=== PATIENT | male | born 1985 | race African-American/Black ===

== ENCOUNTER → 2016-11-11 | Outpatient (CLI) | payer BC ==
[2016-11-11 12:22] LABS: CHLORIDE,CL 106 mmol/L (98-110); SODIUM,NA 139 mmol/L (136-146)
== END ==
LOC: MW.CHIM 11:35
PROVIDERS: ATTEND Internal Medicine
DX: E10.9 Type 1 diabetes mellitus without complications (principal); I10 Essential (primary) hypertension; E87.5 Hyperkalemia
CPT/HCPCS: 36415; 80053; 80061; 83036; 84100; 84439; 84443; 85025

== ENCOUNTER 2016-12-14 12:27 | Emergency (ER) | payer BC ==
[2016-12-14] MEDS ORDERED: Ondansetron 4 MG Tab.DIS PO ONE (12:47)
[2016-12-14] MEDS ORDERED: Sodium Chloride 0.9% 1,000 ML IV ONE ×2 (12:47→13:50)
[2016-12-14] MEDS ORDERED: Ondansetron 4 MG/2 ML SDV IVPUSH ONE (12:54)
[2016-12-14] MEDS ORDERED: Insulin Regular, Human 100 Units/ML 10 ML Vial IVPUSH ONE (14:05)
--- NOTE | 2016-12-14 15:43 | EDM.PDOC ---
ED HPI GI/ABDOMINAL - General Chief Complaint: Gastrointestinal Problem Stated Complaint: VOMITING, AND COUGHING Time Seen by Provider: 12/14/16 12:39 Source of Information: Reports: Patient History Limitations: Reports: No limitations - History of Present Illness INITIAL COMMENTS - FREE TEXT/NARRATIVE: HISTORY AND PHYSICAL: History of present illness: 31 year-old male with a history of type 1 diabetes with variable compliance with insulin and medication regimen,] prior episodes of DKA, chronic renal insufficiency, now complaining of nausea vomiting and diarrhea today. Patient feels dehydrated and fatigued and states his glucose is elevated. No chest pain or shortness of air. No headache or stiff neck. No visual or speech changes. No weakness or difficulties with coordination. Denies fevers chills sweats or shaking chills. Review of systems: As per history of present illness and below otherwise all systems reviewed and negative. Past medical history: As per history of present illness and as reviewed below otherwise noncontributory. Surgical history: As per history of present illness and as reviewed below otherwise noncontributory. Social history: No reported history of drug or alcohol abuse. Family history: As per history of present illness and as reviewed below otherwise noncontributory. Physical exam: HEENT: Atraumatic, normocephalic, pupils reactive, negative for conjunctival pallor or scleral icterus, mucous membranes mildly dry, throat clear, neck supple, nontender, trachea midline. Lungs: Clear to auscultation, breath sounds equal bilaterally, chest nontender. Heart: S1S2, regular, negative for clicks, rubs, or JVD. Tachycardia Abdomen: Soft, nondistended, nontender. Negative for masses or hepatosplenomegaly. Negative for costovertebral tenderness. Pelvis: Stable nontender. Genitourinary: Deferred. Rectal: Deferred. Extremities: Atraumatic, negative for cords or calf pain. Neurovascular unremarkable. Neuro: Awake, alert, oriented. Cranial nerves II through XII unremarkable. Cerebellum unremarkable. Motor and sensory unremarkable throughout. Exam nonfocal. Diagnostics: [] Therapeutics: [] Impression: [] Plan: [Signs and symptoms consistent with viral gastroenteritis with mild dehydration. Hydration initiated with antibiotic treatment. Patient has a benign abdomen. I-STAT was unremarkable CO2. Urine with no ketones. Creatinine 1.7 today patient has a known history of chronic renal insufficiency last recorded value was 1.4 on July 11. Tachycardia resolved with hydration. Patient's nausea also resolved and he feels improved on reevaluation prior to discharge. No further workup or treatment indicated as patient is no evidence of DKA and is stable. Aware to followup with PCP regarding elevated blood pressure and he understands critical importance of appropriate treatment if he does indeed have essential hypertension. Patient will followup with PCP tomorrow or family practice clinic if he does not have a doctor. Patient agrees with outpatient followup and strict return precautions given] Definitive disposition and diagnosis as appropriate pending reevaluation and review of above. - Related Data Allergies/ADRs: Allergies Allergy/AdvReac Type Severity Reaction Status Date / Time Penicillins Allergy Unknown Anaphylactic Verified 08/19/16 08:37 Shock iodine Allergy Anaphylactic Verified 08/19/16 08:37 Shock gluten Allergy Muscle Uncoded 08/19/16 08:37 Aches Home Meds: Home Meds Insulin Glarg,Human.Rec.Analog [Lantus] 40 unit SUBCUT BEDTIME 04/03/14 [History ] Insulin Lispro [Humalog Kwikpen U-100] 0 unit SUBCNJ ASDIRECTED PRN 04/03/14 [ History] Omeprazole [Prilosec] 40 mg PO DAILY #30 capsule. 09/27/14 [Rx] Lisinopril/Hydrochlorothiazide [Lisinopril-Hctz 10-12.5 mg Tab] 1 tab PO DAILY 12/14/16 [History] Ondansetron [Zofran ODT] 4 mg SL Q4H PRN #30 tab.dis 12/14/16 [Rx] Past Medical History - Past Health History Medical/Surgical History: Denies Medical/Surgical History HEENT History: Reports: None Cardiovascular History: Reports: Hypertension Respiratory History: Reports: None Genitourinary History: Reports: Chronic renal insuffiency Musculoskeletal History: Reports: None Neurological History: Reports: None Psychiatric History: Reports: Anxiety Endocrine/Metabolic History: Reports: Diabetes, type I Hematologic History: Reports: None Immunologic History: Reports: None Oncologic (Cancer) History: Reports: None Dermatologic History: Reports: None - Infectious Disease History Infectious Disease History: Reports: None - Past Surgical History Head Surgeries/Procedures: Reports: None HEENT Surgical History: Reports: None Respiratory Surgical History: Reports: None Dermatological Surgical History: Reports: None Social & Family History - Family History Family Medical History: Noncontributory Cardiac: Reports: High cholesterol, Hypertension OBGYN: Reports: Neurological: Reports: None - Tobacco Use Smoking Status *Q: Current Every Day Smoker Years of Tobacco use: 5 Packs/Tins Daily: 0.5 Second Hand Smoke Exposure: No - Caffeine Use Caffeine Use: Reports: Coffee - Alcohol Use Days Per Week of Alcohol Use: 0 Number of Drinks Per Day: 0 Total Drinks Per Week: 0 - Recreational Drug Use Recreational Drug Use: No Drug Use in Last 12 Months: No ED ROS GENERAL - Review of Systems Review Of Systems: See Below (Per history of present illness) ED EXAM, GI/ABD - Physical Exam Exam: See Below (Per history of present illness) Course - Vital Signs Last Recorded V/S: Last Vital Signs Temp 36.6 C 12/14/16 16:06 Pulse 99 12/14/16 16:06 Resp 16 12/14/16 16:06 BP 160/100 H 12/14/16 16:06 Pulse Ox 98 12/14/16 16:06 - Orders/Labs/Meds Labs: Laboratory Tests 12/14/16 12/14/16 12/14/16 Range/Units 12:44 12:44 12:50 Sodium 137 (136-146) mmol/L Potassium 4.5 (3.5-5.1) mmol/L Chloride 100 (98-110) mmol/L Carbon Dioxide 25 (21-31) mmol/L BUN 37 H (6.0-23.0) mg/dL Creatinine 1.7 H (0.6-1.5) mg/dL Est Cr Clr Drug Dosing 61.47 mL/min Estimated GFR (MDRD) 57.6 ml/min Glucose 316 H (60-110) mg/dL Calcium 10.2 (8.8-10.8) mg/dL Urine Color YELLOW Urine Appearance CLEAR Urine pH 6.5 (5.0-8.0) Ur Specific [place] 1.020 (1.001-1.035) Urine Protein >=300 (NEGATIVE) mg/dL Urine Glucose (UA) >=1000 (NEGATIVE) mg/dL Urine Ketones NEGATIVE NEGATIVE (NEGATIVE) mg/dL Urine Occult Blood MODERATE (NEGATIVE) Urine Nitrite NEGATIVE (NEGATIVE) Urine Bilirubin NEGATIVE (NEGATIVE) Urine Urobilinogen 0.2 (<2.0) EU/dL Ur Leukocyte Esterase NEGATIVE (NEGATIVE) Urine RBC 1-3 (0-2/HPF) Urine WBC 1-2 (0-5/HPF) Ur Epithelial Cells FEW (NONE-FEW) Urine Bacteria FEW (NEGATIVE) Meds: Medications Discontinued Medications Generic Name Dose Route Start Last Admin Trade Name Freq PRN Reason Stop Dose Admin Sodium Chloride 1,000 mls @ 999 mls/hr 12/14/16 12:47 12/14/16 12:57 Normal Saline IV 12/14/16 13:47 999 mls/hr STAT ONE Administration Sodium Chloride 1,000 mls @ 999 mls/hr 12/14/16 13:50 12/14/16 14:00 Normal Saline IV 12/14/16 14:50 999 mls/hr STAT ONE Administration Insulin Human Regular 6 unit 12/14/16 14:05 12/14/16 14:10 Novolin R IVPUSH 12/14/16 14:06 6 units ONETIME ONE Administration Protocol Ondansetron HCl 4 mg 12/14/16 12:54 12/14/16 12:58 Zofran IVPUSH 12/14/16 12:55 4 mg ONETIME ONE Administration Departure - Departure Time of Disposition: 15:38 Disposition: Home, Self-Care 01 Condition: good Clinical Impression: Viral gastroenteritis, Mild dehydration, Hyperglycemia, Uncontrolled diabetes mellitus Prescriptions: Ondansetron [Zofran ODT] 4 mg SL Q4H PRN #30 tab.dis PRN Reason: Nausea Instructions: Dehydration, Adult, [id number], Viral Gastroenteritis, Adult, [id number] Referrals: PCP,None [Primary Care Provider] - Forms: ED Department Discharge Additional Instructions: You have viral gastroenteritis today. This is a viral syndrome that causes vomiting and diarrhea. Rest and drink plenty of fluids. On it her your blood glucose frequently and use your insulin as prescribed. Use Zofran one pill under your tongue every 4 hours as needed for nausea and vomiting. Follow up with your DrGuilherme tomorrow and return immediately for new severe or worsening symptoms or inability to keep fluids down. Your blood pressure is not well- controlled today. Have your blood pressure rechecked by your primary care DrGuilherme tomorrow morning for reevaluation and for any needed dose changes of your blood pressure medicines or additional medicines as needed.
[2016-12-14 16:08] VITALS: BP 160/100
== END 2016-12-14 16:08 | disposition home or self-care (01) ==
LOC: MW.ED 12:27
DX: A08.4 Viral intestinal infection, unspecified (principal); E10.65 Type 1 diabetes mellitus with hyperglycemia; E86.0 Dehydration; I12.9 Hypertensive chronic kidney disease with stage 1 through stage 4 chronic kidney disease, or unspecified chronic kidney disease; N18.9 Chronic kidney disease, unspecified; F41.9 Anxiety disorder, unspecified; F17.210 Nicotine dependence, cigarettes, uncomplicated; Z79.899 Other long term (current) drug therapy; Z88.0 Allergy status to penicillin; Z88.8 Allergy status to other drugs, medicaments and biological substances
CPT/HCPCS: 36415; 80048; 81001; 81003; 82962; 96361; 96374; 96375; 99284; J2405; J7040; J1815-GY

== ENCOUNTER 2016-12-14 20:46 | Inpatient (IN) | payer BC ==
[2016-12-14] MEDS ORDERED: Ondansetron 4 MG/2 ML SDV IVPUSH ONE (20:49)
--- NOTE | 2016-12-14 20:58 | EDM.PDOC ---
ED HPI GENERAL MEDICAL PROBLEM - General Chief Complaint: Gastrointestinal Problem Stated Complaint: VOMITING Time Seen by Provider: 12/14/16 20:52 - History of Present Illness INITIAL COMMENTS - FREE TEXT/NARRATIVE: HISTORY AND PHYSICAL: History of present illness: Patient 31-year-old black male history of diabetes and medical noncompliance who was seen earlier for dehydration and gastritis treated and discharged he returns now with vomiting coffee ground material generalized weakness he denies chest pain shortness of breath denies abdominal pain. Review of systems: As per history of present illness and below otherwise all systems reviewed and negative. Past medical history: As per history of present illness and as reviewed below otherwise noncontributory. Surgical history: As per history of present illness and as reviewed below otherwise noncontributory. Social history: No reported history of drug or alcohol abuse. Family history: As per history of present illness and as reviewed below otherwise noncontributory. Physical exam: HEENT: Atraumatic, normocephalic, pupils reactive, negative for conjunctival pallor or scleral icterus, mucous membranes dry, throat clear, neck supple, nontender, trachea midline. Lungs: Clear to auscultation, breath sounds equal bilaterally, chest nontender. Heart: S1S2, regular, negative for clicks, rubs, or JVD. Abdomen: Soft, nondistended, nontender. Negative for masses or hepatosplenomegaly. Negative for costovertebral tenderness. Pelvis: Stable nontender. Genitourinary: Deferred. Rectal: Deferred. Extremities: Atraumatic, negative for cords or calf pain. Neurovascular unremarkable. Neuro: Awake, alert, oriented. Follows commands moves all extremities limited procedure nonfocal exam Diagnostics: CBC CMP PT/INR type and screen lipase ABG chest x-ray EKG Therapeutics: Normal saline 1 L bolus Zofran 4 mg IV NG tube Protonix 80 mg IV bolus followed by a milligram per hour drip Impression: #1 acute upper GI bleed #2 uncontrolled diabetes #3 medical noncompliance Definitive disposition and diagnosis as appropriate pending reevaluation and review of above. Abdominal Pain Score (Numeric/FACES): 3 - Related Data Allergies Allergy/AdvReac Type Severity Reaction Status Date / Time Penicillins Allergy Unknown Anaphylactic Verified 08/19/16 08:37 Shock iodine Allergy Anaphylactic Verified 08/19/16 08:37 Shock gluten Allergy Muscle Uncoded 08/19/16 08:37 Aches Home Meds: Home Meds Insulin Glarg,Human.Rec.Analog [Lantus] 40 unit SUBCUT BEDTIME 04/03/14 [History ] Insulin Lispro [Humalog Kwikpen U-100] 0 unit SUBCNJ ASDIRECTED PRN 04/03/14 [ History] Omeprazole [Prilosec] 40 mg PO DAILY #30 capsule. 09/27/14 [Rx] Lisinopril/Hydrochlorothiazide [Lisinopril-Hctz 10-12.5 mg Tab] 1 tab PO DAILY 12/14/16 [History] Ondansetron [Zofran ODT] 4 mg SL Q4H PRN #30 tab.dis 12/14/16 [Rx] Past Medical History - Past Health History Medical/Surgical History: Denies Medical/Surgical History HEENT History: Reports: None Cardiovascular History: Reports: Hypertension Respiratory History: Reports: None Genitourinary History: Reports: Chronic renal insuffiency Musculoskeletal History: Reports: None Neurological History: Reports: None Psychiatric History: Reports: Anxiety Endocrine/Metabolic History: Reports: Diabetes, type I Hematologic History: Reports: None Immunologic History: Reports: None Oncologic (Cancer) History: Reports: None Dermatologic History: Reports: None - Infectious Disease History Infectious Disease History: Reports: None - Past Surgical History Head Surgeries/Procedures: Reports: None HEENT Surgical History: Reports: None Respiratory Surgical History: Reports: None Dermatological Surgical History: Reports: None Social & Family History - Family History Family Medical History: Noncontributory Cardiac: Reports: High cholesterol, Hypertension OBGYN: Reports: Neurological: Reports: None - Tobacco Use Smoking Status *Q: Current Every Day Smoker Years of Tobacco use: 5 Packs/Tins Daily: 0.5 Second Hand Smoke Exposure: No - Caffeine Use Caffeine Use: Reports: Coffee - Alcohol Use Days Per Week of Alcohol Use: 0 Number of Drinks Per Day: 0 Total Drinks Per Week: 0 - Recreational Drug Use Recreational Drug Use: No Drug Use in Last 12 Months: No ED ROS GENERAL - Review of Systems Review Of Systems: ROS reveals no pertinent complaints other than HPI. ED EXAM, GENERAL - Physical Exam Exam: See Below (See dictation) Course - Vital Signs Last Recorded V/S: Last Vital Signs Temp 37.1 C 12/15/16 00:00 Pulse 106 H 12/15/16 02:00 Resp 13 12/15/16 02:00 BP 117/69 12/15/16 02:00 Pulse Ox 98 12/15/16 02:00 - Orders/Labs/Meds Orders: Active Orders 24 hr Category Date Time Status Patient Status [ADT] Stat ADT 12/14/16 21:14 Active Oxygen Therapy [RC] ASDIRECTED Care 12/14/16 21:16 Active Pulse Oximetry [RC] ASDIRECTED Care 12/14/16 21:16 Active CULTURE BLOOD [BC] Stat Lab 12/14/16 21:18 Received CULTURE BLOOD [BC] Stat Lab 12/14/16 21:45 Results Pantoprazole [ProTONIX IV] 80 mg Med 12/14/16 21:08 Active Sodium Chloride 0.9% [Normal Saline] 100 ml IV NOW Sodium Chloride 0.9% [Normal Saline] 1,000 ml Med 12/14/16 21:15 Active IV ASDIRECTED Blood Culture x2 Reflex Set [OM.PC] Stat Oth 12/14/16 21:02 Ordered Nasogastric Orogastric Tube Insertion [OM.PC] Stat Ot 12/14/16 21:16 Ordered Medication Orders Hydromorphone HCl (Dilaudid) 0.25 mg IVPUSH Q2H PRN PRN Reason: Pain (severe 7-10) Last Admin: 12/15/16 00:13 Dose: 0.25 mg Sodium Chloride (Normal Saline) 1,000 mls @ 75 mls/hr IV ASDIRECTED MICHAEL Last Admin: 12/14/16 23:34 Dose: 75 mls/hr Infusion: 12/14/16 22:51 Dose: 999 mls/hr Admin: 12/14/16 21:50 Dose: 999 mls/hr Pantoprazole Sodium 80 mg/ (Sodium Chloride) 100 mls @ 10 mls/hr IV NOW STA Stop: 12/15/16 07:07 Last Admin: 12/14/16 23:15 Dose: 10 mls/hr Pantoprazole Sodium 40 mg/ (Sodium Chloride) 10 mls @ 300 mls/hr IVPUSH DAILY MICHAEL Insulin Aspart (Novolog) 10 unit SUBCUT Q6H MICHAEL Last Admin: 12/15/16 00:53 Dose: 10 units Lorazepam (Ativan) 1 mg IM Q6H PRN PRN Reason: Agitation Last Admin: 12/15/16 00:05 Dose: 1 mg Nicotine (Habitrol) 7 mg TRDERM DAILY MICHAEL Last Admin: 12/14/16 23:49 Dose: 7 mg Promethazine HCl (Phenergan) 25 mg IM Q6H PRN PRN Reason: Nausea Last Admin: 12/14/16 23:48 Dose: 25 mg Labs: Laboratory Tests 12/14/16 12/14/16 12/14/16 Range/Units 21:02 21:05 21:18 WBC 9.34 (4.0-11.0) K/uL RBC 5.91 H (4.50-5.90) M/uL Hgb 12.9 L (13.0-17.0) g/dL Hct 39.3 (38.0-50.0) % MCV 66.5 L (80.0-98.0) fL MCH 21.8 L (27.0-32.0) pg MCHC 32.8 (31.0-37.0) g/dL RDW Std Deviation 36.5 (28.0-62.0) fl RDW Coeff of Dania 15 (11.0-15.0) % Plt Count 251 (150-400) K/uL MPV 10.80 (7.40-12.00) fL Neut % (Auto) 80.6 H (48.0-80.0) % Lymph % (Auto) 16.2 (16.0-40.0) % [place] % (Auto) 2.9 (0.0-15.0) % Eos % (Auto) 0.1 (0.0-7.0) % Baso % (Auto) 0.2 (0.0-1.5) % Neut # (Auto) 7.5 H (1.4-5.7) K/uL Lymph # (Auto) 1.5 (0.6-2.4) K/uL [place] # (Auto) 0.3 (0.0-0.8) K/uL Eos # (Auto) 0.0 (0.0-0.7) K/uL Baso # (Auto) 0.0 (0.0-0.1) K/uL Nucleated RBC % 0.0 /100WBC Nucleated RBCs # 0 K/uL INR (0.86-1.11) ABG pH 7.424 (7.35-7.45) ABG pCO2 41 (35-45) mmHG ABG pO2 71 L (75-100) mmHG ABG HCO3 27 H (22-26) mEq/L ABG Total CO2 24.3 ABG Base Excess 2.3 H (-2.0-2.0) Lactate (0.20-2.00) mmol/L Sodium (136-146) mmol/L Potassium (3.5-5.1) mmol/L Chloride (98-110) mmol/L Carbon Dioxide (21-31) mmol/L BUN (6.0-23.0) mg/dL Creatinine (0.6-1.5) mg/dL Est Cr Clr Drug Dosing mL/min Estimated GFR (MDRD) ml/min Glucose (60-110) mg/dL POC Glucose 366 H (60-110) mg/dL Calcium (8.8-10.8) mg/dL Total Bilirubin (0.1-1.5) mg/dL AST (5-40) IU/L ALT (8-54) IU/L Alkaline Phosphatase (40-150) Troponin I (0.0-0.29) NG/ML Total Protein (6.0-8.0) g/dL Albumin (3.5-5.0) g/dL Globulin (2.0-3.5) g/dL Albumin/Globulin Ratio (1.3-2.8) Amylase (10-90) U/L Lipase (7-80) U/L Ethyl Alcohol mg/dL 12/14/16 12/14/16 12/14/16 Range/Units 21:18 21:18 21:18 WBC (4.0-11.0) K/uL RBC (4.50-5.90) M/uL Hgb (13.0-17.0) g/dL Hct (38.0-50.0) % MCV (80.0-98.0) fL MCH (27.0-32.0) pg MCHC (31.0-37.0) g/dL RDW Std Deviation (28.0-62.0) fl RDW Coeff of Dania (11.0-15.0) % Plt Count (150-400) K/uL MPV (7.40-12.00) fL Neut % (Auto) (48.0-80.0) % Lymph % (Auto) (16.0-40.0) % [place] % (Auto) (0.0-15.0) % Eos % (Auto) (0.0-7.0) % Baso % (Auto) (0.0-1.5) % Neut # (Auto) (1.4-5.7) K/uL Lymph # (Auto) (0.6-2.4) K/uL [place] # (Auto) (0.0-0.8) K/uL Eos # (Auto) (0.0-0.7) K/uL Baso # (Auto) (0.0-0.1) K/uL Nucleated RBC % /100WBC Nucleated RBCs # K/uL INR 0.92 (0.86-1.11) ABG pH (7.35-7.45) ABG pCO2 (35-45) mmHG ABG pO2 (75-100) mmHG ABG HCO3 (22-26) mEq/L ABG Total CO2 ABG Base Excess (-2.0-2.0) Lactate 3.8 H (0.20-2.00) mmol/L Sodium 141 (136-146) mmol/L Potassium 4.3 (3.5-5.1) mmol/L Chloride 101 (98-110) mmol/L Carbon Dioxide 24 (21-31) mmol/L BUN 27 H (6.0-23.0) mg/dL Creatinine 1.5 (0.6-1.5) mg/dL Est Cr Clr Drug Dosing 69.92 mL/min Estimated GFR (MDRD) > 60.0 ml/min Glucose 415 H (60-110) mg/dL POC Glucose (60-110) mg/dL Calcium 10.0 (8.8-10.8) mg/dL Total Bilirubin 0.4 (0.1-1.5) mg/dL AST 57 H (5-40) IU/L ALT 67 H (8-54) IU/L Alkaline Phosphatase 104 (40-150) Troponin I (0.0-0.29) NG/ML Total Protein 6.8 (6.0-8.0) g/dL Albumin 3.7 (3.5-5.0) g/dL Globulin 3.1 (2.0-3.5) g/dL Albumin/Globulin Ratio 1.2 L (1.3-2.8) Amylase 90 (10-90) U/L Lipase < 8 (7-80) U/L Ethyl Alcohol < 10.0 mg/dL 12/14/16 Range/Units 21:18 WBC (4.0-11.0) K/uL RBC (4.50-5.90) M/uL Hgb (13.0-17.0) g/dL Hct (38.0-50.0) % MCV (80.0-98.0) fL MCH (27.0-32.0) pg MCHC (31.0-37.0) g/dL RDW Std Deviation (28.0-62.0) fl RDW Coeff of Dania (11.0-15.0) % Plt Count (150-400) K/uL MPV (7.40-12.00) fL Neut % (Auto) (48.0-80.0) % Lymph % (Auto) (16.0-40.0) % [place] % (Auto) (0.0-15.0) % Eos % (Auto) (0.0-7.0) % Baso % (Auto) (0.0-1.5) % Neut # (Auto) (1.4-5.7) K/uL Lymph # (Auto) (0.6-2.4) K/uL [place] # (Auto) (0.0-0.8) K/uL Eos # (Auto) (0.0-0.7) K/uL Baso # (Auto) (0.0-0.1) K/uL Nucleated RBC % /100WBC Nucleated RBCs # K/uL INR (0.86-1.11) ABG pH (7.35-7.45) ABG pCO2 (35-45) mmHG ABG pO2 (75-100) mmHG ABG HCO3 (22-26) mEq/L ABG Total CO2 ABG Base Excess (-2.0-2.0) Lactate (0.20-2.00) mmol/L Sodium (136-146) mmol/L Potassium (3.5-5.1) mmol/L Chloride (98-110) mmol/L Carbon Dioxide (21-31) mmol/L BUN (6.0-23.0) mg/dL Creatinine (0.6-1.5) mg/dL Est Cr Clr Drug Dosing mL/min Estimated GFR (MDRD) ml/min Glucose (60-110) mg/dL POC Glucose (60-110) mg/dL Calcium (8.8-10.8) mg/dL Total Bilirubin (0.1-1.5) mg/dL AST (5-40) IU/L ALT (8-54) IU/L Alkaline Phosphatase (40-150) Troponin I < 0.10 (0.0-0.29) NG/ML Total Protein (6.0-8.0) g/dL Albumin (3.5-5.0) g/dL Globulin (2.0-3.5) g/dL Albumin/Globulin Ratio (1.3-2.8) Amylase (10-90) U/L Lipase (7-80) U/L Ethyl Alcohol mg/dL Meds: Medications Generic Name Dose Route Start Last Admin Trade Name Freq PRN Reason Stop Dose Admin Hydromorphone HCl 0.25 mg 12/14/16 22:40 12/15/16 00:13 Dilaudid IVPUSH 0.25 mg Q2H PRN Administration Pain (severe 7-10) Sodium Chloride 1,000 mls @ 75 mls/hr 12/14/16 21:15 12/14/16 23:34 Normal Saline IV 75 mls/hr ASDIRECTED MICHAEL Administration Pantoprazole Sodium 80 mg/ 100 mls @ 10 mls/hr 12/14/16 21:08 12/14/16 23:15 Sodium Chloride IV 12/15/16 07:07 10 mls/hr NOW STA Administration Pantoprazole Sodium 40 mg/ 10 mls @ 300 mls/hr 12/15/16 09:00 Sodium Chloride IVPUSH DAILY MICHAEL Insulin Aspart 10 unit 12/15/16 00:45 12/15/16 00:53 Novolog SUBCUT 10 units Q6H MICHAEL Administration Lorazepam 1 mg 12/14/16 22:25 12/15/16 00:05 Ativan IM 1 mg Q6H PRN Administration Agitation Nicotine 7 mg 12/14/16 22:30 12/14/16 23:49 Habitrol TRDERM 7 mg DAILY MICHAEL Administration Promethazine HCl 25 mg 12/14/16 22:25 12/14/16 23:48 Phenergan IM 25 mg Q6H PRN Administration Nausea Discontinued Medications Generic Name Dose Route Start Last Admin Trade Name Freq PRN Reason Stop Dose Admin Hydromorphone HCl 0.25 mg 12/14/16 22:25 Dilaudid IVPUSH Q2H PRN Pain (severe 7-10) Pantoprazole Sodium 40 mg/ 10 mls @ 300 mls/hr 12/14/16 21:06 12/14/16 21:53 Sodium Chloride IVPUSH 12/14/16 21:07 300 mls/hr NOW ONE Administration Metoclopramide HCl 10 mg 12/14/16 21:06 12/14/16 22:17 Reglan IVPUSH 12/14/16 21:07 Not Given ONETIME ONE Ondansetron HCl 8 mg 12/14/16 20:49 12/14/16 20:53 Zofran IVPUSH 12/14/16 20:50 8 mg ONETIME ONE Administration Departure - Departure Time of Disposition: 21:00 Disposition: Admitted As Inpatient 67 Condition: good Clinical Impression: Gastrointestinal hemorrhage, Diabetes - My Orders Last 24 Hours: My Active Orders 12/14/16 21:02 Blood Culture x2 Reflex Set [OM.PC] Stat 12/14/16 21:08 Pantoprazole [ProTONIX IV] 80 mg Sodium Chloride 0.9% [Normal Saline] 100 ml IV NOW 12/14/16 21:14 Patient Status [ADT] Stat 12/14/16 21:15 Sodium Chloride 0.9% [Normal Saline] 1,000 ml IV ASDIRECTED 12/14/16 21:16 Oxygen Therapy [RC] ASDIRECTED Pulse Oximetry [RC] ASDIRECTED Nasogastric Orogastric Tube Insertion [OM.PC] Stat 12/14/16 21:18 CULTURE BLOOD [BC] Stat 12/14/16 21:45 CULTURE BLOOD [BC] Stat - Assessment/Plan Last 24 Hours: My Active Orders 12/14/16 21:02 Blood Culture x2 Reflex Set [OM.PC] Stat 12/14/16 21:08 Pantoprazole [ProTONIX IV] 80 mg Sodium Chloride 0.9% [Normal Saline] 100 ml IV NOW 12/14/16 21:14 Patient Status [ADT] Stat 12/14/16 21:15 Sodium Chloride 0.9% [Normal Saline] 1,000 ml IV ASDIRECTED 12/14/16 21:16 Oxygen Therapy [RC] ASDIRECTED Pulse Oximetry [RC] ASDIRECTED Nasogastric Orogastric Tube Insertion [OM.PC] Stat 12/14/16 21:18 CULTURE BLOOD [BC] Stat 12/14/16 21:45 CULTURE BLOOD [BC] Stat
[2016-12-14] MEDS ORDERED: Pantoprazole 40 MG in Sodium Chloride 0.9% 10 ML IVPUSH ONE (21:06)
[2016-12-14] MEDS ORDERED: Metoclopramide 10 MG/2 ML SDV IVPUSH ONE (21:06)
[2016-12-14] MEDS ORDERED: Pantoprazole 80 MG in Sodium Chloride 0.9% 100 ML IV STA (21:08)
[2016-12-14] MEDS: Sodium Chloride 0.9% 1,000 ML IV SCH ×2 (21:50→23:34)
[2016-12-14 21:57] LABS: CHLORIDE,CL 101 mmol/L (98-110); SODIUM,NA 141 mmol/L (136-146)
[2016-12-14] MEDS ORDERED: HYDROmorphone 2 MG/ML Syringe IVPUSH PRN (22:25)
[2016-12-14] MEDS ORDERED: LORazepam 2 MG/ML MDV IM PRN (22:25)
[2016-12-14] MEDS ORDERED: HYDROmorphone 1 MG/ML Syringe IVPUSH PRN (22:40)
--- NOTE | 2016-12-14 23:36 | PCM.HP ---
H&P History of Present Illness - General Date of Service: 12/14/16 Admit Problem/Dx: hematemesis Source of Information: Patient History Limitations: Reports: No limitations - History of Present Illness Initial Comments - Free Text/Narative: 31 y o diabetic since age 9 with severe nausea and dark emesis since yesterday, Says hurting all over Symptom Onset Date: 12/13/16 Duration of Symptoms: Reports: Day(s): Location: Reports: abdomen, generalized Severity: severe Improves with: Reports: None Worsens with: Reports: None Abdominal Pain Score (Numeric/FACES): 3 - Related Data Allergies/Adverse Reactions: Allergies Allergy/AdvReac Type Severity Reaction Status Date / Time Penicillins Allergy Unknown Anaphylactic Verified 08/19/16 08:37 Shock iodine Allergy Anaphylactic Verified 08/19/16 08:37 Shock gluten Allergy Muscle Uncoded 08/19/16 08:37 Aches Home Medications: Home Meds Insulin Glarg,Human.Rec.Analog [Lantus] 40 unit SUBCUT BEDTIME 04/03/14 [History ] Insulin Lispro [Humalog Kwikpen U-100] 0 unit SUBCNJ ASDIRECTED PRN 04/03/14 [ History] Omeprazole [Prilosec] 40 mg PO DAILY #30 capsule. 09/27/14 [Rx] Lisinopril/Hydrochlorothiazide [Lisinopril-Hctz 10-12.5 mg Tab] 1 tab PO DAILY 12/14/16 [History] Ondansetron [Zofran ODT] 4 mg SL Q4H PRN #30 tab.dis 12/14/16 [Rx] Past Medical History - Past Health History Medical/Surgical History: Denies Medical/Surgical History HEENT History: Reports: None Cardiovascular History: Reports: Hypertension Respiratory History: Reports: None Gastrointestinal History: Reports: Other (see below) Other Gastrointestinal History: ulcers Genitourinary History: Reports: Chronic renal insuffiency Musculoskeletal History: Reports: None Neurological History: Reports: None Psychiatric History: Reports: Anxiety Endocrine/Metabolic History: Reports: Diabetes, type I, Other (see below) ( reports having DKA in past) Hematologic History: Reports: None Immunologic History: Reports: None Oncologic (Cancer) History: Reports: None Dermatologic History: Reports: None - Infectious Disease History Infectious Disease History: Reports: None - Past Surgical History Head Surgeries/Procedures: Reports: None HEENT Surgical History: Reports: None Respiratory Surgical History: Reports: None Dermatological Surgical History: Reports: None Social & Family History - Family History Family Medical History: Noncontributory Cardiac: Reports: High cholesterol, Hypertension OBGYN: Reports: Neurological: Reports: None - Tobacco Use Smoking Status *Q: Current Every Day Smoker Years of Tobacco use: 5 Packs/Tins Daily: 0.5 Second Hand Smoke Exposure: No - Caffeine Use Caffeine Use: Reports: Coffee - Alcohol Use Days Per Week of Alcohol Use: 0 Number of Drinks Per Day: 0 Total Drinks Per Week: 0 - Recreational Drug Use Recreational Drug Use: No Drug Use in Last 12 Months: No H&P Review of Systems - Review of Systems: Review Of Systems: See Below General: Reports: no symptoms HEENT: Reports: no symptoms Pulmonary: Reports: No Symptoms Cardiovascular: Reports: no symptoms Gastrointestinal: Reports: Abdominal pain, Diarrhea, Nausea Genitourinary: Reports: no symptoms Musculoskeletal: Reports: no symptoms Skin: Reports: no symptoms Psychiatric: Reports: no symptoms Neurological: Reports: No Symptoms Hematologic/Lymphatic: Reports: no symptoms Immunologic: Reports: no symptoms Exam - Exam Exam: See Below - Vital Signs Vital Signs: Last Vital Signs Temp 37.2 C 12/14/16 22:30 Pulse 98 12/14/16 22:30 Resp 20 12/14/16 22:30 BP 186/111 H 12/14/16 22:30 Pulse Ox 98 12/14/16 22:30 Weight: 77.11 kg - Exam General: severe distress HEENT: Conjunctiva clear Neck: supple Lungs: Clear to auscultation Cardiovascular: regular rate Abdomen: guarding (difficult to examine due to writhing) (Male) Exam: Deferred Rectal (Males) Exam: Deferred Back Exam: normal inspection Extremities: normal inspection Skin: other (many small healed excoriations) Neurological: cranial nerves intact Neuro Extensive - Mental Status: alert Neuro Extensive - Motor, Sensory, Reflexes: CN II-XII intact Psychiatric: anxious, agitated - Patient Data Lab Results last 24 hrs: Laboratory Results - last 24 hr 12/14/16 12/14/16 12/14/16 Range/Units 21:50 22:30 22:30 Urine Color YELLOW Urine Appearance CLEAR Urine pH 7.0 (5.0-8.0) Ur Specific Mears 1.015 (1.001-1.035) Urine Protein 100 (NEGATIVE) mg/dL Urine Glucose (UA) >=1000 (NEGATIVE) mg/dL Urine Ketones 15 H (NEGATIVE) mg/dL Urine Occult Blood MODERATE (NEGATIVE) Urine Nitrite NEGATIVE (NEGATIVE) Urine Bilirubin NEGATIVE (NEGATIVE) Urine Urobilinogen 0.2 (<2.0) EU/dL Ur Leukocyte Esterase NEGATIVE (NEGATIVE) Urine RBC 1-2 (0-2/HPF) Urine WBC 0-1 (0-5/HPF) Ur Epithelial Cells NOT SEEN (NONE-FEW) Urine Bacteria RARE (NEGATIVE) Urine Opiates Screen NEGATIVE (NEGATIVE) Ur Oxycodone Screen NEGATIVE (NEGATIVE) Urine Methadone Screen NEGATIVE (NEGATIVE) Ur Barbiturates Screen NEGATIVE (NEGATIVE) Ur Phencyclidine Scrn NEGATIVE (NEGATIVE) Ur Amphetamine Screen NEGATIVE (NEGATIVE) U Methamphetamines Scrn NEGATIVE (NEGATIVE) U Benzodiazepines Scrn NEGATIVE (NEGATIVE) U Cocaine Metab Screen NEGATIVE (NEGATIVE) U Marijuana (THC) Screen POSITIVE (NEGATIVE) Blood Type O POSITIVE Antibody Screen NEGATIVE Result Diagrams: 12/14/16 21:18 12/14/16 21:18 Peter Results last 24 hrs: Microbiology 12/14/16 21:45 Anaerobic Blood Culture - Final Blood - Arm, Left *Q Meaningful Use (ADM) - VTE *Q VTE Criteria *Q: - Stroke *Q Stroke Criteria *Q: - AMI *Q AMI Criteria *Q: Problem List Initiated/Reviewed/Updated: Yes Orders Last 24hrs: Active Orders 24 hr Category Date Time Status Oxygen Therapy [RC] PRN Care 12/14/16 22:27 Active VTE/DVT Education [RC] PER UNIT ROUTINE Care 12/14/16 22:27 Active Vital Signs [RC] Q4H Care 12/14/16 22:27 Active Clear Liquid Diet [DIET] Diet 12/14/16 Breakfast Active CXR [Chest 1V Frontal] [CR] Stat Exams 12/14/16 21:51 Taken HEMOGLOBIN/HEMATOCRIT,HH [HEME] DAILY Lab 12/15/16 05:00 Ordered HYDROmorphone [Dilaudid] Med 12/14/16 22:40 Active 0.25 mg IVPUSH Q2H PRN LORazepam [Ativan] Med 12/14/16 22:25 Active 1 mg IM Q6H PRN Nicotine [Habitrol] Med 12/14/16 22:30 Active 7 mg TRDERM DAILY Promethazine [Phenergan] Med 12/14/16 22:25 Active 25 mg IM Q6H PRN Resuscitation Status Routine Resus Stat 12/14/16 22:25 Ordered Medication Orders Hydromorphone HCl (Dilaudid) 0.25 mg IVPUSH Q2H PRN PRN Reason: Pain (severe 7-10) Sodium Chloride (Normal Saline) 1,000 mls @ 75 mls/hr IV ASDIRECTED [facility] Last Admin: 12/14/16 21:50 Dose: 999 mls/hr Pantoprazole Sodium 80 mg/ (Sodium Chloride) 100 mls @ 10 mls/hr IV NOW STA Stop: 12/15/16 07:07 Last Admin: 12/14/16 23:15 Dose: 10 mls/hr Lorazepam (Ativan) 1 mg IM Q6H PRN PRN Reason: Agitation Nicotine (Habitrol) 7 mg TRDERM DAILY [facility] Promethazine HCl (Phenergan) 25 mg IM Q6H PRN PRN Reason: Nausea hematemesis with "coffee grounds" diabetes hypertension ?situational plan; protonix drip monitor blood sugars and manage with q 6 novolog
[2016-12-14] MEDS: Promethazine 25 MG/ML SDV IM PRN (23:48)
[2016-12-14] MEDS: Nicotine 7 MG/24 Hr Patch TRDERM SCH (23:49)
[2016-12-15] MEDS: Insulin Aspart 100 Units/ML 3 ML Pen SUBCUT SCH ×5 (00:53→21:55)
[2016-12-15] MEDS: Promethazine 25 MG/ML SDV IM PRN ×2 (07:46→15:53)
[2016-12-15] MEDS ORDERED: Sodium Chloride 0.9% 1,000 ML IV ONE (07:58)
[2016-12-15] MEDS ORDERED: Pantoprazole 40 MG in Sodium Chloride 0.9% 10 ML IVPUSH SCH (09:00)
[2016-12-15] MEDS ORDERED: Insulin Aspart 100 Units/ML 3 ML Pen SUBCUT SCH ×2 (09:00→09:15)
[2016-12-15] MEDS: Sodium Chloride 0.9% 1,000 ML IV SCH ×3 (09:10→23:04)
[2016-12-15] MEDS: Nicotine 7 MG/24 Hr Patch TRDERM SCH (10:22)
[2016-12-15] MEDS: Ondansetron 4 MG/2 ML SDV IVPUSH PRN ×2 (11:34→18:03)
[2016-12-15 12:47] LABS: CHLORIDE,CL 109 mmol/L (98-110); SODIUM,NA 145 mmol/L (136-146)
--- NOTE | 2016-12-15 13:15 | PCM.PN ---
<AnneChavez chavira - Last Filed: 12/15/16 13:18> - General Info Date of Service: 12/15/16 Admission Dx/Problem (Free Text): hematemesis Subjective Update: Still having nausea this morning, no appetite. Feeling better than last evening. No BM's, NG draining clear. No pain. Functional Status: Reports: pain controlled - Review of Systems General: Reports: Fatigue, Malaise. Denies: Fever, Weakness HEENT: Denies: headaches, sinus congestion Pulmonary: Denies: shortness of breath, pleuritic chest pain, cough, hemoptysis , wheezing Cardiovascular: Denies: Chest Pain, Palpitations, Edema Gastrointestinal: Reports: Decreased appetite, Nausea, Vomiting. Denies: Diarrhea Genitourinary: Denies: dysuria, hematuria Musculoskeletal: Denies: neck pain, leg pain Skin: Denies: cyanosis Neurological: Denies: Confusion, Dizziness Psychiatric: Denies: confusion - Patient Data Vitals - most recent: Last Vital Signs Temp 37.5 C 12/15/16 08:00 Pulse 122 H 12/15/16 07:00 Resp 17 12/15/16 11:00 BP 155/94 H 12/15/16 11:00 Pulse Ox 97 12/15/16 11:00 Weight - most recent: 77.11 kg I&O - last 24 hours: Intake & Output 12/14/16 12/15/16 12/15/16 22:59 06:59 14:59 Intake Total 1000 50 680 Output Total 1050 Balance 1000 -1000 680 Lab Results last 24 hrs: Laboratory Results - last 24 hr 12/14/16 12/14/16 12/14/16 Range/Units 21:50 22:30 22:30 WBC (4.0-11.0) K/uL RBC (4.50-5.90) M/uL Hgb (13.0-17.0) g/dL Hct (38.0-50.0) % MCV (80.0-98.0) fL MCH (27.0-32.0) pg MCHC (31.0-37.0) g/dL RDW Std Deviation (28.0-62.0) fl RDW Coeff of Dania (11.0-15.0) % Plt Count (150-400) K/uL MPV (7.40-12.00) fL Neut % (Auto) (48.0-80.0) % Lymph % (Auto) (16.0-40.0) % Walsh % (Auto) (0.0-15.0) % Eos % (Auto) (0.0-7.0) % Baso % (Auto) (0.0-1.5) % Neut # (Auto) (1.4-5.7) K/uL Lymph # (Auto) (0.6-2.4) K/uL Walsh # (Auto) (0.0-0.8) K/uL Eos # (Auto) (0.0-0.7) K/uL Baso # (Auto) (0.0-0.1) K/uL Nucleated RBC % /100WBC Nucleated RBCs # K/uL Lactate (0.20-2.00) mmol/L Sodium (136-146) mmol/L Potassium (3.5-5.1) mmol/L Chloride (98-110) mmol/L Carbon Dioxide (21-31) mmol/L BUN (6.0-23.0) mg/dL Creatinine (0.6-1.5) mg/dL Est Cr Clr Drug Dosing mL/min Estimated GFR (MDRD) ml/min Glucose (60-110) mg/dL POC Glucose (60-110) mg/dL Calcium (8.8-10.8) mg/dL Phosphorus (2.4-4.7) mg/dL Magnesium (1.5-2.3) mEq/L Urine Color YELLOW Urine Appearance CLEAR Urine pH 7.0 (5.0-8.0) Ur Specific [place] 1.015 (1.001-1.035) Urine Protein 100 (NEGATIVE) mg/dL Urine Glucose (UA) >=1000 (NEGATIVE) mg/dL Urine Ketones 15 H (NEGATIVE) mg/dL Urine Occult Blood MODERATE (NEGATIVE) Urine Nitrite NEGATIVE (NEGATIVE) Urine Bilirubin NEGATIVE (NEGATIVE) Urine Urobilinogen 0.2 (<2.0) EU/dL Ur Leukocyte Esterase NEGATIVE (NEGATIVE) Urine RBC 1-2 (0-2/HPF) Urine WBC 0-1 (0-5/HPF) Ur Epithelial Cells NOT SEEN (NONE-FEW) Urine Bacteria RARE (NEGATIVE) Urine Opiates Screen NEGATIVE (NEGATIVE) Ur Oxycodone Screen NEGATIVE (NEGATIVE) Urine Methadone Screen NEGATIVE (NEGATIVE) Ur Barbiturates Screen NEGATIVE (NEGATIVE) Ur Phencyclidine Scrn NEGATIVE (NEGATIVE) Ur Amphetamine Screen NEGATIVE (NEGATIVE) U Methamphetamines Scrn NEGATIVE (NEGATIVE) U Benzodiazepines Scrn NEGATIVE (NEGATIVE) U Cocaine Metab Screen NEGATIVE (NEGATIVE) U Marijuana (THC) Screen POSITIVE (NEGATIVE) H. pylori IgG Antibody (NEG) Blood Type O POSITIVE Antibody Screen NEGATIVE 12/15/16 12/15/16 12/15/16 Range/Units 00:30 02:45 02:45 WBC (4.0-11.0) K/uL RBC (4.50-5.90) M/uL Hgb 11.2 L (13.0-17.0) g/dL Hct 35.3 L (38.0-50.0) % MCV (80.0-98.0) fL MCH (27.0-32.0) pg MCHC (31.0-37.0) g/dL RDW Std Deviation (28.0-62.0) fl RDW Coeff of Dania (11.0-15.0) % Plt Count (150-400) K/uL MPV (7.40-12.00) fL Neut % (Auto) (48.0-80.0) % Lymph % (Auto) (16.0-40.0) % Walsh % (Auto) (0.0-15.0) % Eos % (Auto) (0.0-7.0) % Baso % (Auto) (0.0-1.5) % Neut # (Auto) (1.4-5.7) K/uL Lymph # (Auto) (0.6-2.4) K/uL Walsh # (Auto) (0.0-0.8) K/uL Eos # (Auto) (0.0-0.7) K/uL Baso # (Auto) (0.0-0.1) K/uL Nucleated RBC % /100WBC Nucleated RBCs # K/uL Lactate 2.6 H (0.20-2.00) mmol/L Sodium (136-146) mmol/L Potassium (3.5-5.1) mmol/L Chloride (98-110) mmol/L Carbon Dioxide (21-31) mmol/L BUN (6.0-23.0) mg/dL Creatinine (0.6-1.5) mg/dL Est Cr Clr Drug Dosing mL/min Estimated GFR (MDRD) ml/min Glucose (60-110) mg/dL POC Glucose 437 H (60-110) mg/dL Calcium (8.8-10.8) mg/dL Phosphorus (2.4-4.7) mg/dL Magnesium (1.5-2.3) mEq/L Urine Color Urine Appearance Urine pH (5.0-8.0) Ur Specific [place] (1.001-1.035) Urine Protein (NEGATIVE) mg/dL Urine Glucose (UA) (NEGATIVE) mg/dL Urine Ketones (NEGATIVE) mg/dL Urine Occult Blood (NEGATIVE) Urine Nitrite (NEGATIVE) Urine Bilirubin (NEGATIVE) Urine Urobilinogen (<2.0) EU/dL Ur Leukocyte Esterase (NEGATIVE) Urine RBC (0-2/HPF) Urine WBC (0-5/HPF) Ur Epithelial Cells (NONE-FEW) Urine Bacteria (NEGATIVE) Urine Opiates Screen (NEGATIVE) Ur Oxycodone Screen (NEGATIVE) Urine Methadone Screen (NEGATIVE) Ur Barbiturates Screen (NEGATIVE) Ur Phencyclidine Scrn (NEGATIVE) Ur Amphetamine Screen (NEGATIVE) U Methamphetamines Scrn (NEGATIVE) U Benzodiazepines Scrn (NEGATIVE) U Cocaine Metab Screen (NEGATIVE) U Marijuana (THC) Screen (NEGATIVE) H. pylori IgG Antibody (NEG) Blood Type Antibody Screen 12/15/16 12/15/16 12/15/16 Range/Units 06:03 08:03 08:07 WBC 18.32 H (4.0-11.0) K/uL RBC 5.29 (4.50-5.90) M/uL Hgb 11.4 L (13.0-17.0) g/dL Hct 35.9 L (38.0-50.0) % MCV 67.9 L (80.0-98.0) fL MCH 21.6 L (27.0-32.0) pg MCHC 31.8 (31.0-37.0) g/dL RDW Std Deviation 37.9 (28.0-62.0) fl RDW Coeff of Dania 16 H (11.0-15.0) % Plt Count 238 (150-400) K/uL MPV 10.60 (7.40-12.00) fL Neut % (Auto) 83.1 H (48.0-80.0) % Lymph % (Auto) 11.0 L (16.0-40.0) % Walsh % (Auto) 5.8 (0.0-15.0) % Eos % (Auto) 0.0 (0.0-7.0) % Baso % (Auto) 0.1 (0.0-1.5) % Neut # (Auto) 15.2 H (1.4-5.7) K/uL Lymph # (Auto) 2.0 (0.6-2.4) K/uL Walsh # (Auto) 1.1 H (0.0-0.8) K/uL Eos # (Auto) 0.0 (0.0-0.7) K/uL Baso # (Auto) 0.0 (0.0-0.1) K/uL Nucleated RBC % 0.0 /100WBC Nucleated RBCs # 0 K/uL Lactate (0.20-2.00) mmol/L Sodium (136-146) mmol/L Potassium (3.5-5.1) mmol/L Chloride (98-110) mmol/L Carbon Dioxide (21-31) mmol/L BUN (6.0-23.0) mg/dL Creatinine (0.6-1.5) mg/dL Est Cr Clr Drug Dosing mL/min Estimated GFR (MDRD) ml/min Glucose (60-110) mg/dL POC Glucose 447 H (60-110) mg/dL Calcium (8.8-10.8) mg/dL Phosphorus (2.4-4.7) mg/dL Magnesium (1.5-2.3) mEq/L Urine Color Urine Appearance Urine pH (5.0-8.0) Ur Specific [place] (1.001-1.035) Urine Protein (NEGATIVE) mg/dL Urine Glucose (UA) (NEGATIVE) mg/dL Urine Ketones (NEGATIVE) mg/dL Urine Occult Blood (NEGATIVE) Urine Nitrite (NEGATIVE) Urine Bilirubin (NEGATIVE) Urine Urobilinogen (<2.0) EU/dL Ur Leukocyte Esterase (NEGATIVE) Urine RBC (0-2/HPF) Urine WBC (0-5/HPF) Ur Epithelial Cells (NONE-FEW) Urine Bacteria (NEGATIVE) Urine Opiates Screen (NEGATIVE) Ur Oxycodone Screen (NEGATIVE) Urine Methadone Screen (NEGATIVE) Ur Barbiturates Screen (NEGATIVE) Ur Phencyclidine Scrn (NEGATIVE) Ur Amphetamine Screen (NEGATIVE) U Methamphetamines Scrn (NEGATIVE) U Benzodiazepines Scrn (NEGATIVE) U Cocaine Metab Screen (NEGATIVE) U Marijuana (THC) Screen (NEGATIVE) H. pylori IgG Antibody NEGATIVE (NEG) Blood Type Antibody Screen 12/15/16 12/15/16 12/15/16 Range/Units 08:07 08:07 08:56 WBC (4.0-11.0) K/uL RBC (4.50-5.90) M/uL Hgb (13.0-17.0) g/dL Hct (38.0-50.0) % MCV (80.0-98.0) fL MCH (27.0-32.0) pg MCHC (31.0-37.0) g/dL RDW Std Deviation (28.0-62.0) fl RDW Coeff of Dania (11.0-15.0) % Plt Count (150-400) K/uL MPV (7.40-12.00) fL Neut % (Auto) (48.0-80.0) % Lymph % (Auto) (16.0-40.0) % Walsh % (Auto) (0.0-15.0) % Eos % (Auto) (0.0-7.0) % Baso % (Auto) (0.0-1.5) % Neut # (Auto) (1.4-5.7) K/uL Lymph # (Auto) (0.6-2.4) K/uL Walsh # (Auto) (0.0-0.8) K/uL Eos # (Auto) (0.0-0.7) K/uL Baso # (Auto) (0.0-0.1) K/uL Nucleated RBC % /100WBC Nucleated RBCs # K/uL Lactate 2.8 H (0.20-2.00) mmol/L Sodium 143 (136-146) mmol/L Potassium 4.2 (3.5-5.1) mmol/L Chloride 107 (98-110) mmol/L Carbon Dioxide 22 (21-31) mmol/L BUN 28 H (6.0-23.0) mg/dL Creatinine 1.9 H (0.6-1.5) mg/dL Est Cr Clr Drug Dosing 55.20 mL/min Estimated GFR (MDRD) 50.7 ml/min Glucose 352 H (60-110) mg/dL POC Glucose 240 H (60-110) mg/dL Calcium 8.7 L (8.8-10.8) mg/dL Phosphorus 4.0 (2.4-4.7) mg/dL Magnesium 1.6 (1.5-2.3) mEq/L Urine Color Urine Appearance Urine pH (5.0-8.0) Ur Specific [place] (1.001-1.035) Urine Protein (NEGATIVE) mg/dL Urine Glucose (UA) (NEGATIVE) mg/dL Urine Ketones (NEGATIVE) mg/dL Urine Occult Blood (NEGATIVE) Urine Nitrite (NEGATIVE) Urine Bilirubin (NEGATIVE) Urine Urobilinogen (<2.0) EU/dL Ur Leukocyte Esterase (NEGATIVE) Urine RBC (0-2/HPF) Urine WBC (0-5/HPF) Ur Epithelial Cells (NONE-FEW) Urine Bacteria (NEGATIVE) Urine Opiates Screen (NEGATIVE) Ur Oxycodone Screen (NEGATIVE) Urine Methadone Screen (NEGATIVE) Ur Barbiturates Screen (NEGATIVE) Ur Phencyclidine Scrn (NEGATIVE) Ur Amphetamine Screen (NEGATIVE) U Methamphetamines Scrn (NEGATIVE) U Benzodiazepines Scrn (NEGATIVE) U Cocaine Metab Screen (NEGATIVE) U Marijuana (THC) Screen (NEGATIVE) H. pylori IgG Antibody (NEG) Blood Type Antibody Screen 12/15/16 12/15/16 12/15/16 Range/Units 11:44 11:44 12:36 WBC (4.0-11.0) K/uL RBC (4.50-5.90) M/uL Hgb (13.0-17.0) g/dL Hct (38.0-50.0) % MCV (80.0-98.0) fL MCH (27.0-32.0) pg MCHC (31.0-37.0) g/dL RDW Std Deviation (28.0-62.0) fl RDW Coeff of Dania (11.0-15.0) % Plt Count (150-400) K/uL MPV (7.40-12.00) fL Neut % (Auto) (48.0-80.0) % Lymph % (Auto) (16.0-40.0) % Walsh % (Auto) (0.0-15.0) % Eos % (Auto) (0.0-7.0) % Baso % (Auto) (0.0-1.5) % Neut # (Auto) (1.4-5.7) K/uL Lymph # (Auto) (0.6-2.4) K/uL Walsh # (Auto) (0.0-0.8) K/uL Eos # (Auto) (0.0-0.7) K/uL Baso # (Auto) (0.0-0.1) K/uL Nucleated RBC % /100WBC Nucleated RBCs # K/uL Lactate 1.2 (0.20-2.00) mmol/L Sodium 145 (136-146) mmol/L Potassium 3.8 (3.5-5.1) mmol/L Chloride 109 (98-110) mmol/L Carbon Dioxide 27 (21-31) mmol/L BUN 24 H (6.0-23.0) mg/dL Creatinine 1.5 (0.6-1.5) mg/dL Est Cr Clr Drug Dosing 69.92 mL/min Estimated GFR (MDRD) > 60.0 ml/min Glucose 179 H (60-110) mg/dL POC Glucose 159 H (60-110) mg/dL Calcium 8.6 L (8.8-10.8) mg/dL Phosphorus (2.4-4.7) mg/dL Magnesium (1.5-2.3) mEq/L Urine Color Urine Appearance Urine pH (5.0-8.0) Ur Specific [place] (1.001-1.035) Urine Protein (NEGATIVE) mg/dL Urine Glucose (UA) (NEGATIVE) mg/dL Urine Ketones (NEGATIVE) mg/dL Urine Occult Blood (NEGATIVE) Urine Nitrite (NEGATIVE) Urine Bilirubin (NEGATIVE) Urine Urobilinogen (<2.0) EU/dL Ur Leukocyte Esterase (NEGATIVE) Urine RBC (0-2/HPF) Urine WBC (0-5/HPF) Ur Epithelial Cells (NONE-FEW) Urine Bacteria (NEGATIVE) Urine Opiates Screen (NEGATIVE) Ur Oxycodone Screen (NEGATIVE) Urine Methadone Screen (NEGATIVE) Ur Barbiturates Screen (NEGATIVE) Ur Phencyclidine Scrn (NEGATIVE) Ur Amphetamine Screen (NEGATIVE) U Methamphetamines Scrn (NEGATIVE) U Benzodiazepines Scrn (NEGATIVE) U Cocaine Metab Screen (NEGATIVE) U Marijuana (THC) Screen (NEGATIVE) H. pylori IgG Antibody (NEG) Blood Type Antibody Screen Peter Results last 24 hrs: Microbiology 12/15/16 10:20 Influenza Type A Antigen Screen - Final Nasopharyngeal Swab - Nare, Right NEGATIVE INFLUENZA A VIRUS AG Influenza Type B Antigen Screen - Final NEGATIVE INFLUENZA B VIRUS AG 12/14/16 21:45 Anaerobic Blood Culture - Final Blood - Arm, Left Med Orders - Current: Current Medications Hydromorphone HCl (Dilaudid) 0.25 mg IVPUSH Q2H PRN PRN Reason: Pain (severe 7-10) Last Admin: 12/15/16 00:13 Dose: 0.25 mg Pantoprazole Sodium 40 mg/ (Sodium Chloride) 10 mls @ 300 mls/hr IVPUSH DAILY MICHAEL Last Admin: 12/15/16 09:09 Dose: 300 mls/hr Sodium Chloride (Normal Saline) 1,000 mls @ 150 mls/hr IV ASDIRECTED MICHAEL Last Admin: 12/15/16 09:10 Dose: 150 mls/hr Insulin Aspart (Novolog) 0 unit SUBCUT Q4H MICHAEL PRN Reason: Protocol Last Admin: 12/15/16 13:05 Dose: 2 units Insulin Glargine (Lantus Solostar) 40 units SUBCUT BEDTIME MICHAEL Lorazepam (Ativan) 1 mg IM Q6H PRN PRN Reason: Agitation Last Admin: 12/15/16 00:05 Dose: 1 mg Miscellaneous Information (Remove Patch) 1 ea TRDERM 12/15/16@2200 [facility] Stop: 12/15/16 22:01 Nicotine (Habitrol) 7 mg TRDERM Q24H PRN PRN Reason: smoking Ondansetron HCl (Zofran) 4 mg IVPUSH Q4H PRN PRN Reason: Nausea/Vomiting Last Admin: 12/15/16 11:34 Dose: 4 mg Promethazine HCl (Phenergan) 25 mg IM Q6H PRN PRN Reason: Nausea Last Admin: 12/15/16 07:46 Dose: 25 mg Discontinued Medications Hydromorphone HCl (Dilaudid) 0.25 mg IVPUSH Q2H PRN PRN Reason: Pain (severe 7-10) Pantoprazole Sodium 40 mg/ (Sodium Chloride) 10 mls @ 300 mls/hr IVPUSH NOW ONE Stop: 12/14/16 21:07 Last Admin: 12/14/16 21:53 Dose: 300 mls/hr Sodium Chloride (Normal Saline) 1,000 mls @ 75 mls/hr IV ASDIRECTED [facility] Last Admin: 12/14/16 23:34 Dose: 75 mls/hr Pantoprazole Sodium 80 mg/ (Sodium Chloride) 100 mls @ 10 mls/hr IV NOW STA Stop: 12/15/16 07:07 Last Admin: 12/14/16 23:15 Dose: 10 mls/hr Sodium Chloride (Normal Saline) 1,000 mls @ 999 mls/hr IV .Bolus ONE Stop: 12/15/16 08:58 Last Admin: 12/15/16 08:02 Dose: 999 mls/hr Insulin Aspart (Novolog) 10 unit SUBCUT Q6H [facility] Last Admin: 12/15/16 06:14 Dose: 10 units Insulin Aspart (Novolog) 15 unit SUBCUT Q6H [facility] Last Admin: 12/15/16 09:09 Dose: Not Given Insulin Aspart (Novolog) 0 unit SUBCUT Q4H [facility] PRN Reason: Protocol Last Admin: 12/15/16 09:21 Dose: 6 units Metoclopramide HCl (Reglan) 10 mg IVPUSH ONETIME ONE Stop: 12/14/16 21:07 Last Admin: 12/14/16 22:17 Dose: Not Given Nicotine (Habitrol) 7 mg TRDERM DAILY [facility] Last Admin: 12/15/16 10:22 Dose: Not Given Ondansetron HCl (Zofran) 8 mg IVPUSH ONETIME ONE Stop: 12/14/16 20:50 Last Admin: 12/14/16 20:53 Dose: 8 mg - Exam Quality Assessment: DVT prophylaxis General: alert, oriented, cooperative, no acute distress HEENT: Pupils equal, Pupils reactive, EOMI, Mucous membr. moist/pink Neck: supple Lungs: Clear to auscultation, Normal respiratory effort Cardiovascular: Regular Rate, Regular Rhythm Abdomen: bowel sounds present, soft, no tenderness, no distension (Male) Exam: No hernia, Normal inspection, Normal prostate, Circumcised Back Exam: normal inspection, full range of motion Extremities: no edema, normal pulses, no tenderness/swelling, no calf tenderness Skin: warm, dry, intact Neurological: no new focal deficit Psy/Mental Status: alert, normal affect, normal mood - Problem List & Annotations (1) GI bleed SNOMED Code(s): 82380639 Code(s): K92.2 - GASTROINTESTINAL HEMORRHAGE, UNSPECIFIED Status: Acute Priority: High Current Visit: Yes Qualifiers: Gastritis type: unspecified gastritis (2) Hyperglycemia due to type 1 diabetes mellitus SNOMED Code(s): 807661568708518, 732043868155111 Code(s): E10.65 - TYPE 1 DIABETES MELLITUS WITH HYPERGLYCEMIA Status: Acute Priority: High Current Visit: Yes (3) Lactate blood increase SNOMED Code(s): 8223770 Code(s): R79.89 - OTHER SPECIFIED ABNORMAL FINDINGS OF BLOOD CHEMISTRY Status: Acute Priority: High Current Visit: Yes (4) Vomiting SNOMED Code(s): 763167209 Code(s): R11.10 - VOMITING, UNSPECIFIED Status: Acute Priority: High Current Visit: No Onset Date: 09/28/14 - Problem List Review Problem List Initiated/Reviewed/Updated: Yes - My Orders Last 24 Hours: My Active Orders 12/15/16 08:00 Sodium Chloride 0.9% [Normal Saline] 1,000 ml IV ASDIRECTED 12/15/16 11:25 Ondansetron [Zofran] 4 mg IVPUSH Q4H PRN 12/15/16 13:00 Insulin Aspart [NovoLOG] See Protocol SUBCUT Q4H 12/15/16 13:09 Transfer Patient (Change bed) [ADT] Routine 12/15/16 21:00 Insulin Glarg,Human.Rec.Analog [LantUS Solostar] 40 units SUBCUT BEDTIME 12/16/16 05:00 BMP [BASIC METABOLIC PANEL,BMP] [CHEM] DAILY CBC WITH AUTO DIFF [HEME] DAILY 12/17/16 05:00 BMP [BASIC METABOLIC PANEL,BMP] [CHEM] DAILY CBC WITH AUTO DIFF [HEME] DAILY 12/18/16 05:00 BMP [BASIC METABOLIC PANEL,BMP] [CHEM] DAILY CBC WITH AUTO DIFF [HEME] DAILY 12/19/16 05:00 BMP [BASIC METABOLIC PANEL,BMP] [CHEM] DAILY CBC WITH AUTO DIFF [HEME] DAILY - Plan Plan:: 31 yo male admitted 12/14/16 for intractable vomiting and acute GI bleed with elevated lactate and hyperglycemia with hx of type I diabetes, hypertension, and renal insufficiency. GI Bleed: Patient has remained NPO with NG. There appears to be no further coffee grounds in NG and no significant drop in Hgb. Most likely long standing bleed with no active bleeding at this time. Talked with surgery, Dr. Pompa, who suggested that without active bleed and his other comorbidities being treated she would see him as an outpatient once he is medically stabilized. Recommend omeprazole and sulcrafate on discharge. I did order h-pylori as well today. Elevated Lactate with anion Gap: Bolus 1 L NS this am with increase in fluids to 150 ml/hr. Repeat lactate normal 1.2 and repeat BMP shows gap closed at 9. previously 16. Will cont. to monitor but can now be transferred to floor. diabetes type I: Medium dose ISS q 4 hr checks. Start home Lantus 40 subq this evening. Will decrease to TIDAC possibly tomorrow. ARF: Creatnine elevated to 1.9 this morning but resolved with hydration. Will cont. to monitor hypertension: Will restart lisinopril this afternoon no that kidney function has improved. VTE: SCD, hold pharm secondary to GI bleed. Dispo: 1-2 days. <Javed Torres O - Last Filed: 12/15/16 14:16> - Patient Data Vitals - most recent: Last Vital Signs Temp 37.2 C 12/15/16 12:00 Pulse 122 H 12/15/16 07:00 Resp 14 12/15/16 13:00 BP 155/94 H 12/15/16 13:00 Pulse Ox 98 12/15/16 13:00 I&O - last 24 hours: Intake & Output 12/14/16 12/15/16 12/15/16 22:59 06:59 14:59 Intake Total 1000 50 680 Output Total 1050 Balance 1000 -1000 680 Lab Results last 24 hrs: Laboratory Results - last 24 hr 12/14/16 12/14/16 12/14/16 Range/Units 21:50 22:30 22:30 WBC (4.0-11.0) K/uL RBC (4.50-5.90) M/uL Hgb (13.0-17.0) g/dL Hct (38.0-50.0) % MCV (80.0-98.0) fL MCH (27.0-32.0) pg MCHC (31.0-37.0) g/dL RDW Std Deviation (28.0-62.0) fl RDW Coeff of Dania (11.0-15.0) % Plt Count (150-400) K/uL MPV (7.40-12.00) fL Neut % (Auto) (48.0-80.0) % Lymph % (Auto) (16.0-40.0) % Walsh % (Auto) (0.0-15.0) % Eos % (Auto) (0.0-7.0) % Baso % (Auto) (0.0-1.5) % Neut # (Auto) (1.4-5.7) K/uL Lymph # (Auto) (0.6-2.4) K/uL Walsh # (Auto) (0.0-0.8) K/uL Eos # (Auto) (0.0-0.7) K/uL Baso # (Auto) (0.0-0.1) K/uL Nucleated RBC % /100WBC Nucleated RBCs # K/uL Lactate (0.20-2.00) mmol/L Sodium (136-146) mmol/L Potassium (3.5-5.1) mmol/L Chloride (98-110) mmol/L Carbon Dioxide (21-31) mmol/L BUN (6.0-23.0) mg/dL Creatinine (0.6-1.5) mg/dL Est Cr Clr Drug Dosing mL/min Estimated GFR (MDRD) ml/min Glucose (60-110) mg/dL POC Glucose (60-110) mg/dL Calcium (8.8-10.8) mg/dL Phosphorus (2.4-4.7) mg/dL Magnesium (1.5-2.3) mEq/L Urine Color YELLOW Urine Appearance CLEAR Urine pH 7.0 (5.0-8.0) Ur Specific [place] 1.015 (1.001-1.035) Urine Protein 100 (NEGATIVE) mg/dL Urine Glucose (UA) >=1000 (NEGATIVE) mg/dL Urine Ketones 15 H (NEGATIVE) mg/dL Urine Occult Blood MODERATE (NEGATIVE) Urine Nitrite NEGATIVE (NEGATIVE) Urine Bilirubin NEGATIVE (NEGATIVE) Urine Urobilinogen 0.2 (<2.0) EU/dL Ur Leukocyte Esterase NEGATIVE (NEGATIVE) Urine RBC 1-2 (0-2/HPF) Urine WBC 0-1 (0-5/HPF) Ur Epithelial Cells NOT SEEN (NONE-FEW) Urine Bacteria RARE (NEGATIVE) Urine Opiates Screen NEGATIVE (NEGATIVE) Ur Oxycodone Screen NEGATIVE (NEGATIVE) Urine Methadone Screen NEGATIVE (NEGATIVE) Ur Barbiturates Screen NEGATIVE (NEGATIVE) Ur Phencyclidine Scrn NEGATIVE (NEGATIVE) Ur Amphetamine Screen NEGATIVE (NEGATIVE) U Methamphetamines Scrn NEGATIVE (NEGATIVE) U Benzodiazepines Scrn NEGATIVE (NEGATIVE) U Cocaine Metab Screen NEGATIVE (NEGATIVE) U Marijuana (THC) Screen POSITIVE (NEGATIVE) H. pylori IgG Antibody (NEG) Blood Type O POSITIVE Antibody Screen NEGATIVE 12/15/16 12/15/16 12/15/16 Range/Units 00:30 02:45 02:45 WBC (4.0-11.0) K/uL RBC (4.50-5.90) M/uL Hgb 11.2 L (13.0-17.0) g/dL Hct 35.3 L (38.0-50.0) % MCV (80.0-98.0) fL MCH (27.0-32.0) pg MCHC (31.0-37.0) g/dL RDW Std Deviation (28.0-62.0) fl RDW Coeff of Dania (11.0-15.0) % Plt Count (150-400) K/uL MPV (7.40-12.00) fL Neut % (Auto) (48.0-80.0) % Lymph % (Auto) (16.0-40.0) % Walsh % (Auto) (0.0-15.0) % Eos % (Auto) (0.0-7.0) % Baso % (Auto) (0.0-1.5) % Neut # (Auto) (1.4-5.7) K/uL Lymph # (Auto) (0.6-2.4) K/uL Walsh # (Auto) (0.0-0.8) K/uL Eos # (Auto) (0.0-0.7) K/uL Baso # (Auto) (0.0-0.1) K/uL Nucleated RBC % /100WBC Nucleated RBCs # K/uL Lactate 2.6 H (0.20-2.00) mmol/L Sodium (136-146) mmol/L Potassium (3.5-5.1) mmol/L Chloride (98-110) mmol/L Carbon Dioxide (21-31) mmol/L BUN (6.0-23.0) mg/dL Creatinine (0.6-1.5) mg/dL Est Cr Clr Drug Dosing mL/min Estimated GFR (MDRD) ml/min Glucose (60-110) mg/dL POC Glucose 437 H (60-110) mg/dL Calcium (8.8-10.8) mg/dL Phosphorus (2.4-4.7) mg/dL Magnesium (1.5-2.3) mEq/L Urine Color Urine Appearance Urine pH (5.0-8.0) Ur Specific [place] (1.001-1.035) Urine Protein (NEGATIVE) mg/dL Urine Glucose (UA) (NEGATIVE) mg/dL Urine Ketones (NEGATIVE) mg/dL Urine Occult Blood (NEGATIVE) Urine Nitrite (NEGATIVE) Urine Bilirubin (NEGATIVE) Urine Urobilinogen (<2.0) EU/dL Ur Leukocyte Esterase (NEGATIVE) Urine RBC (0-2/HPF) Urine WBC (0-5/HPF) Ur Epithelial Cells (NONE-FEW) Urine Bacteria (NEGATIVE) Urine Opiates Screen (NEGATIVE) Ur Oxycodone Screen (NEGATIVE) Urine Methadone Screen (NEGATIVE) Ur Barbiturates Screen (NEGATIVE) Ur Phencyclidine Scrn (NEGATIVE) Ur Amphetamine Screen (NEGATIVE) U Methamphetamines Scrn (NEGATIVE) U Benzodiazepines Scrn (NEGATIVE) U Cocaine Metab Screen (NEGATIVE) U Marijuana (THC) Screen (NEGATIVE) H. pylori IgG Antibody (NEG) Blood Type Antibody Screen 12/15/16 12/15/16 12/15/16 Range/Units 06:03 08:03 08:07 WBC 18.32 H (4.0-11.0) K/uL RBC 5.29 (4.50-5.90) M/uL Hgb 11.4 L (13.0-17.0) g/dL Hct 35.9 L (38.0-50.0) % MCV 67.9 L (80.0-98.0) fL MCH 21.6 L (27.0-32.0) pg MCHC 31.8 (31.0-37.0) g/dL RDW Std Deviation 37.9 (28.0-62.0) fl RDW Coeff of Dania 16 H (11.0-15.0) % Plt Count 238 (150-400) K/uL MPV 10.60 (7.40-12.00) fL Neut % (Auto) 83.1 H (48.0-80.0) % Lymph % (Auto) 11.0 L (16.0-40.0) % Walsh % (Auto) 5.8 (0.0-15.0) % Eos % (Auto) 0.0 (0.0-7.0) % Baso % (Auto) 0.1 (0.0-1.5) % Neut # (Auto) 15.2 H (1.4-5.7) K/uL Lymph # (Auto) 2.0 (0.6-2.4) K/uL Walsh # (Auto) 1.1 H (0.0-0.8) K/uL Eos # (Auto) 0.0 (0.0-0.7) K/uL Baso # (Auto) 0.0 (0.0-0.1) K/uL Nucleated RBC % 0.0 /100WBC Nucleated RBCs # 0 K/uL Lactate (0.20-2.00) mmol/L Sodium (136-146) mmol/L Potassium (3.5-5.1) mmol/L Chloride (98-110) mmol/L Carbon Dioxide (21-31) mmol/L BUN (6.0-23.0) mg/dL Creatinine (0.6-1.5) mg/dL Est Cr Clr Drug Dosing mL/min Estimated GFR (MDRD) ml/min Glucose (60-110) mg/dL POC Glucose 447 H (60-110) mg/dL Calcium (8.8-10.8) mg/dL Phosphorus (2.4-4.7) mg/dL Magnesium (1.5-2.3) mEq/L Urine Color Urine Appearance Urine pH (5.0-8.0) Ur Specific [place] (1.001-1.035) Urine Protein (NEGATIVE) mg/dL Urine Glucose (UA) (NEGATIVE) mg/dL Urine Ketones (NEGATIVE) mg/dL Urine Occult Blood (NEGATIVE) Urine Nitrite (NEGATIVE) Urine Bilirubin (NEGATIVE) Urine Urobilinogen (<2.0) EU/dL Ur Leukocyte Esterase (NEGATIVE) Urine RBC (0-2/HPF) Urine WBC (0-5/HPF) Ur Epithelial Cells (NONE-FEW) Urine Bacteria (NEGATIVE) Urine Opiates Screen (NEGATIVE) Ur Oxycodone Screen (NEGATIVE) Urine Methadone Screen (NEGATIVE) Ur Barbiturates Screen (NEGATIVE) Ur Phencyclidine Scrn (NEGATIVE) Ur Amphetamine Screen (NEGATIVE) U Methamphetamines Scrn (NEGATIVE) U Benzodiazepines Scrn (NEGATIVE) U Cocaine Metab Screen (NEGATIVE) U Marijuana (THC) Screen (NEGATIVE) H. pylori IgG Antibody NEGATIVE (NEG) Blood Type Antibody Screen 12/15/16 12/15/16 12/15/16 Range/Units 08:07 08:07 08:56 WBC (4.0-11.0) K/uL RBC (4.50-5.90) M/uL Hgb (13.0-17.0) g/dL Hct (38.0-50.0) % MCV (80.0-98.0) fL MCH (27.0-32.0) pg MCHC (31.0-37.0) g/dL RDW Std Deviation (28.0-62.0) fl RDW Coeff of Dania (11.0-15.0) % Plt Count (150-400) K/uL MPV (7.40-12.00) fL Neut % (Auto) (48.0-80.0) % Lymph % (Auto) (16.0-40.0) % Walsh % (Auto) (0.0-15.0) % Eos % (Auto) (0.0-7.0) % Baso % (Auto) (0.0-1.5) % Neut # (Auto) (1.4-5.7) K/uL Lymph # (Auto) (0.6-2.4) K/uL Walsh # (Auto) (0.0-0.8) K/uL Eos # (Auto) (0.0-0.7) K/uL Baso # (Auto) (0.0-0.1) K/uL Nucleated RBC % /100WBC Nucleated RBCs # K/uL Lactate 2.8 H (0.20-2.00) mmol/L Sodium 143 (136-146) mmol/L Potassium 4.2 (3.5-5.1) mmol/L Chloride 107 (98-110) mmol/L Carbon Dioxide 22 (21-31) mmol/L BUN 28 H (6.0-23.0) mg/dL Creatinine 1.9 H (0.6-1.5) mg/dL Est Cr Clr Drug Dosing 55.20 mL/min Estimated GFR (MDRD) 50.7 ml/min Glucose 352 H (60-110) mg/dL POC Glucose 240 H (60-110) mg/dL Calcium 8.7 L (8.8-10.8) mg/dL Phosphorus 4.0 (2.4-4.7) mg/dL Magnesium 1.6 (1.5-2.3) mEq/L Urine Color Urine Appearance Urine pH (5.0-8.0) Ur Specific [place] (1.001-1.035) Urine Protein (NEGATIVE) mg/dL Urine Glucose (UA) (NEGATIVE) mg/dL Urine Ketones (NEGATIVE) mg/dL Urine Occult Blood (NEGATIVE) Urine Nitrite (NEGATIVE) Urine Bilirubin (NEGATIVE) Urine Urobilinogen (<2.0) EU/dL Ur Leukocyte Esterase (NEGATIVE) Urine RBC (0-2/HPF) Urine WBC (0-5/HPF) Ur Epithelial Cells (NONE-FEW) Urine Bacteria (NEGATIVE) Urine Opiates Screen (NEGATIVE) Ur Oxycodone Screen (NEGATIVE) Urine Methadone Screen (NEGATIVE) Ur Barbiturates Screen (NEGATIVE) Ur Phencyclidine Scrn (NEGATIVE) Ur Amphetamine Screen (NEGATIVE) U Methamphetamines Scrn (NEGATIVE) U Benzodiazepines Scrn (NEGATIVE) U Cocaine Metab Screen (NEGATIVE) U Marijuana (THC) Screen (NEGATIVE) H. pylori IgG Antibody (NEG) Blood Type Antibody Screen 12/15/16 12/15/16 12/15/16 Range/Units 11:44 11:44 12:36 WBC (4.0-11.0) K/uL RBC (4.50-5.90) M/uL Hgb (13.0-17.0) g/dL Hct (38.0-50.0) % MCV (80.0-98.0) fL MCH (27.0-32.0) pg MCHC (31.0-37.0) g/dL RDW Std Deviation (28.0-62.0) fl RDW Coeff of Dania (11.0-15.0) % Plt Count (150-400) K/uL MPV (7.40-12.00) fL Neut % (Auto) (48.0-80.0) % Lymph % (Auto) (16.0-40.0) % Walsh % (Auto) (0.0-15.0) % Eos % (Auto) (0.0-7.0) % Baso % (Auto) (0.0-1.5) % Neut # (Auto) (1.4-5.7) K/uL Lymph # (Auto) (0.6-2.4) K/uL Walsh # (Auto) (0.0-0.8) K/uL Eos # (Auto) (0.0-0.7) K/uL Baso # (Auto) (0.0-0.1) K/uL Nucleated RBC % /100WBC Nucleated RBCs # K/uL Lactate 1.2 (0.20-2.00) mmol/L Sodium 145 (136-146) mmol/L Potassium 3.8 (3.5-5.1) mmol/L Chloride 109 (98-110) mmol/L Carbon Dioxide 27 (21-31) mmol/L BUN 24 H (6.0-23.0) mg/dL Creatinine 1.5 (0.6-1.5) mg/dL Est Cr Clr Drug Dosing 69.92 mL/min Estimated GFR (MDRD) > 60.0 ml/min Glucose 179 H (60-110) mg/dL POC Glucose 159 H (60-110) mg/dL Calcium 8.6 L (8.8-10.8) mg/dL Phosphorus (2.4-4.7) mg/dL Magnesium (1.5-2.3) mEq/L Urine Color Urine Appearance Urine pH (5.0-8.0) Ur Specific [place] (1.001-1.035) Urine Protein (NEGATIVE) mg/dL Urine Glucose (UA) (NEGATIVE) mg/dL Urine Ketones (NEGATIVE) mg/dL Urine Occult Blood (NEGATIVE) Urine Nitrite (NEGATIVE) Urine Bilirubin (NEGATIVE) Urine Urobilinogen (<2.0) EU/dL Ur Leukocyte Esterase (NEGATIVE) Urine RBC (0-2/HPF) Urine WBC (0-5/HPF) Ur Epithelial Cells (NONE-FEW) Urine Bacteria (NEGATIVE) Urine Opiates Screen (NEGATIVE) Ur Oxycodone Screen (NEGATIVE) Urine Methadone Screen (NEGATIVE) Ur Barbiturates Screen (NEGATIVE) Ur Phencyclidine Scrn (NEGATIVE) Ur Amphetamine Screen (NEGATIVE) U Methamphetamines Scrn (NEGATIVE) U Benzodiazepines Scrn (NEGATIVE) U Cocaine Metab Screen (NEGATIVE) U Marijuana (THC) Screen (NEGATIVE) H. pylori IgG Antibody (NEG) Blood Type Antibody Screen Peter Results last 24 hrs: Microbiology 12/15/16 10:20 Influenza Type A Antigen Screen - Final Nasopharyngeal Swab - Nare, Right NEGATIVE INFLUENZA A VIRUS AG Influenza Type B Antigen Screen - Final NEGATIVE INFLUENZA B VIRUS AG 12/14/16 21:45 Anaerobic Blood Culture - Final Blood - Arm, Left Med Orders - Current: Current Medications Hydromorphone HCl (Dilaudid) 0.25 mg IVPUSH Q2H PRN PRN Reason: Pain (severe 7-10) Last Admin: 12/15/16 00:13 Dose: 0.25 mg Pantoprazole Sodium 40 mg/ (Sodium Chloride) 10 mls @ 300 mls/hr IVPUSH DAILY [facility] Last Admin: 12/15/16 09:09 Dose: 300 mls/hr Sodium Chloride (Normal Saline) 1,000 mls @ 150 mls/hr IV ASDIRECTED MICHAEL Last Admin: 12/15/16 09:10 Dose: 150 mls/hr Insulin Aspart (Novolog) 0 unit SUBCUT Q4H MICHAEL PRN Reason: Protocol Last Admin: 12/15/16 13:05 Dose: 2 units Insulin Glargine (Lantus Solostar) 40 units SUBCUT BEDTIME MICHAEL Lorazepam (Ativan) 1 mg IM Q6H PRN PRN Reason: Agitation Last Admin: 12/15/16 00:05 Dose: 1 mg Miscellaneous Information (Remove Patch) 1 ea TRDERM 12/15/16@2200 [facility] Stop: 12/15/16 22:01 Nicotine (Habitrol) 7 mg TRDERM Q24H PRN PRN Reason: smoking Ondansetron HCl (Zofran) 4 mg IVPUSH Q4H PRN PRN Reason: Nausea/Vomiting Last Admin: 12/15/16 11:34 Dose: 4 mg Promethazine HCl (Phenergan) 25 mg IM Q6H PRN PRN Reason: Nausea Last Admin: 12/15/16 07:46 Dose: 25 mg Discontinued Medications Hydromorphone HCl (Dilaudid) 0.25 mg IVPUSH Q2H PRN PRN Reason: Pain (severe 7-10) Pantoprazole Sodium 40 mg/ (Sodium Chloride) 10 mls @ 300 mls/hr IVPUSH NOW ONE Stop: 12/14/16 21:07 Last Admin: 12/14/16 21:53 Dose: 300 mls/hr Sodium Chloride (Normal Saline) 1,000 mls @ 75 mls/hr IV ASDIRECTED [facility] Last Admin: 12/14/16 23:34 Dose: 75 mls/hr Pantoprazole Sodium 80 mg/ (Sodium Chloride) 100 mls @ 10 mls/hr IV NOW STA Stop: 12/15/16 07:07 Last Admin: 12/14/16 23:15 Dose: 10 mls/hr Sodium Chloride (Normal Saline) 1,000 mls @ 999 mls/hr IV .Bolus ONE Stop: 12/15/16 08:58 Last Admin: 12/15/16 08:02 Dose: 999 mls/hr Insulin Aspart (Novolog) 10 unit SUBCUT Q6H [facility] Last Admin: 12/15/16 06:14 Dose: 10 units Insulin Aspart (Novolog) 15 unit SUBCUT Q6H [facility] Last Admin: 12/15/16 09:09 Dose: Not Given Insulin Aspart (Novolog) 0 unit SUBCUT Q4H [facility] PRN Reason: Protocol Last Admin: 12/15/16 09:21 Dose: 6 units Metoclopramide HCl (Reglan) 10 mg IVPUSH ONETIME ONE Stop: 12/14/16 21:07 Last Admin: 12/14/16 22:17 Dose: Not Given Nicotine (Habitrol) 7 mg TRDERM DAILY [facility] Last Admin: 12/15/16 10:22 Dose: Not Given Ondansetron HCl (Zofran) 8 mg IVPUSH ONETIME ONE Stop: 12/14/16 20:50 Last Admin: 12/14/16 20:53 Dose: 8 mg - My Orders Last 24 Hours: My Active Orders 12/14/16 21:51 CXR [Chest 1V Frontal] [CR] Stat 12/14/16 22:25 LORazepam [Ativan] 1 mg IM Q6H PRN Promethazine [Phenergan] 25 mg IM Q6H PRN Resuscitation Status Routine 12/14/16 22:27 Oxygen Therapy [RC] PRN Vital Signs [RC] Q1H 12/14/16 22:40 HYDROmorphone [Dilaudid] 0.25 mg IVPUSH Q2H PRN 12/15/16 00:35 Communication Order [RC] ROUTINE 12/15/16 21:00 Nicotine [Habitrol] 7 mg TRDERM Q24H PRN 12/15/16 22:00 Remove Patch 1 ea TRDERM 12/15/16@2200 - Assessment Assessment:: I was present with the resident during the history and exam. I discussed the case with the resident and agree with the findings and plan as documented in the resident's note. - Plan Plan:: I was present with the resident during the history and exam. I discussed the case with [facility] resident and agree with the findings and plan as documented in the resident's note
[2016-12-15] MEDS ORDERED: Lisinopril 10 MG Tab PO SCH (14:15)
[2016-12-15] MEDS: Pantoprazole 80 MG in Sodium Chloride 0.9% 100 ML IV SCH (14:45)
[2016-12-15] MEDS: Lisinopril 10 MG Tab PO SCH (14:53)
[2016-12-15] MEDS: Hydrochlorothiazide 12.5 MG Cap PO SCH (14:53)
--- NOTE | 2016-12-15 19:26 | CR ---
EXAM DATE: 12/14/16 PATIENT'S AGE: 31 Patient: DAWOOD DUCKWORTH Facility: [place], [place] Site . Site : [id number] Study: XRay Chest [id number] 10:10:25 PM Ordering Physician: Melissa Jay Final Report: INDICATION: NG TUBE PLACEMENT CONFIRMATION TECHNIQUE: Chest radiograph 1 view COMPARISON: 05/06/14 FINDINGS: Cardiovascular and mediastinum: The cardiac silhouette is normal in appearance and size. Mediastinum is within normal limits. NG tube present with tip in the gastric fundus. Lungs and pleural space: Both lungs are unremarkable in appearance. No sign of pleural effusion. No pneumothorax is seen. Bones and soft tissues: No significant findings. IMPRESSION: 1. NG tube present with tip in the gastric fundus. Dictated by: Josh Vick MD @ 12/14/2016 22:19:01 (Electronic Signature) Report Signed by Proxy and Original Signed Document filed in the Medical Record. MTDD
[2016-12-15] MEDS: Insulin Glargine,Human Rec. Analog 100 Units/ML 3 ML Pen SUBCUT SCH (21:50)
[2016-12-15] MEDS ORDERED: Phenol 1.4% Oral Spray 177 ML Bottle MUCMEM PRN (22:03)
[2016-12-15] MEDS: Nicotine 7 MG/24 Hr Patch TRDERM PRN (22:38)
[2016-12-16] MEDS: Insulin Aspart 100 Units/ML 3 ML Pen SUBCUT SCH ×6 (01:43→16:48)
[2016-12-16] MEDS: Pantoprazole 80 MG in Sodium Chloride 0.9% 100 ML IV SCH ×3 (02:15→23:19)
[2016-12-16] MEDS: Sodium Chloride 0.9% 1,000 ML IV SCH ×3 (05:33→20:55)
[2016-12-16 06:31] LABS: CHLORIDE,CL 109 mmol/L (98-110); SODIUM,NA 144 mmol/L (136-146)
[2016-12-16] MEDS ORDERED: Magnesium Sulfate/Water 2 GM in Premix Bag 1 BAG IV ONE (08:06)
[2016-12-16] MEDS ORDERED: Potassium Chloride 20 MEQ Tab.ER PO ONE (08:06)
[2016-12-16] MEDS: Hydrochlorothiazide 12.5 MG Cap PO SCH (08:38)
[2016-12-16] MEDS: Lisinopril 10 MG Tab PO SCH (08:39)
[2016-12-16] MEDS ORDERED: Lisinopril 10 MG Tab PO SCH ×2 (09:00→15:00)
[2016-12-16] MEDS ORDERED: Hydrochlorothiazide 12.5 MG Cap PO SCH (09:00)
[2016-12-16] MEDS ORDERED: Calcium Carbonate 500 MG Tab.Chew PO SCH (09:00)
--- NOTE | 2016-12-16 10:21 | PCM.PN ---
<Chavez Anne - Last Filed: 12/16/16 10:23> - General Info Date of Service: 12/16/16 Admission Dx/Problem (Free Text): hematemesis Subjective Update: Feeling much better this am. Has been able to tolerate clear liquids with nausea and vomiting. No diarrhea or fevers. Has a mild sore throat this morning he thinks secondary to all his vomiting. no other complaints. Functional Status: Reports: pain controlled, tolerating diet, ambulating - Review of Systems General: Reports: Weakness, Fatigue. Denies: Fever, Malaise, Chills HEENT: Reports: sore throat. Denies: headaches, sinus congestion Pulmonary: Denies: shortness of breath, hemoptysis, wheezing Cardiovascular: Denies: Chest Pain, Palpitations, Edema Gastrointestinal: Denies: Abdominal pain, Constipation, Diarrhea, Nausea, Vomiting Genitourinary: Denies: dysuria, hematuria Musculoskeletal: Denies: neck pain, leg pain Skin: Denies: cyanosis, bruising Neurological: Denies: Confusion, Dizziness Psychiatric: Denies: confusion - Patient Data Vitals - most recent: Last Vital Signs Temp 37.5 C 12/16/16 07:43 Pulse 94 12/16/16 07:43 Resp 18 12/16/16 07:43 BP 129/71 12/16/16 08:39 Pulse Ox 99 12/16/16 07:43 Weight - most recent: 77.11 kg I&O - last 24 hours: Intake & Output 12/15/16 12/16/16 12/16/16 22:59 06:59 14:59 Intake Total 2900 1670 50 Output Total 1850 750 Balance 1050 920 50 Lab Results last 24 hrs: Laboratory Results - last 24 hr 12/15/16 12/15/16 12/15/16 Range/Units 08:03 11:44 11:44 WBC (4.0-11.0) K/uL RBC (4.50-5.90) M/uL Hgb (13.0-17.0) g/dL Hct (38.0-50.0) % MCV (80.0-98.0) fL MCH (27.0-32.0) pg MCHC (31.0-37.0) g/dL RDW Std Deviation (28.0-62.0) fl RDW Coeff of Dania (11.0-15.0) % Plt Count (150-400) K/uL MPV (7.40-12.00) fL Neut % (Auto) (48.0-80.0) % Lymph % (Auto) (16.0-40.0) % [place] % (Auto) (0.0-15.0) % Eos % (Auto) (0.0-7.0) % Baso % (Auto) (0.0-1.5) % Neut # (Auto) (1.4-5.7) K/uL Lymph # (Auto) (0.6-2.4) K/uL [place] # (Auto) (0.0-0.8) K/uL Eos # (Auto) (0.0-0.7) K/uL Baso # (Auto) (0.0-0.1) K/uL Nucleated RBC % /100WBC Nucleated RBCs # K/uL Lactate 1.2 (0.20-2.00) mmol/L Sodium 145 (136-146) mmol/L Potassium 3.8 (3.5-5.1) mmol/L Chloride 109 (98-110) mmol/L Carbon Dioxide 27 (21-31) mmol/L BUN 24 H (6.0-23.0) mg/dL Creatinine 1.5 (0.6-1.5) mg/dL Est Cr Clr Drug Dosing 69.92 mL/min Estimated GFR (MDRD) > 60.0 ml/min Glucose 179 H (60-110) mg/dL POC Glucose (60-110) mg/dL Calcium 8.6 L (8.8-10.8) mg/dL H. pylori IgG Antibody NEGATIVE (NEG) 12/15/16 12/15/16 12/15/16 Range/Units 12:36 17:49 22:07 WBC (4.0-11.0) K/uL RBC (4.50-5.90) M/uL Hgb (13.0-17.0) g/dL Hct (38.0-50.0) % MCV (80.0-98.0) fL MCH (27.0-32.0) pg MCHC (31.0-37.0) g/dL RDW Std Deviation (28.0-62.0) fl RDW Coeff of Dania (11.0-15.0) % Plt Count (150-400) K/uL MPV (7.40-12.00) fL Neut % (Auto) (48.0-80.0) % Lymph % (Auto) (16.0-40.0) % [place] % (Auto) (0.0-15.0) % Eos % (Auto) (0.0-7.0) % Baso % (Auto) (0.0-1.5) % Neut # (Auto) (1.4-5.7) K/uL Lymph # (Auto) (0.6-2.4) K/uL [place] # (Auto) (0.0-0.8) K/uL Eos # (Auto) (0.0-0.7) K/uL Baso # (Auto) (0.0-0.1) K/uL Nucleated RBC % /100WBC Nucleated RBCs # K/uL Lactate (0.20-2.00) mmol/L Sodium (136-146) mmol/L Potassium (3.5-5.1) mmol/L Chloride (98-110) mmol/L Carbon Dioxide (21-31) mmol/L BUN (6.0-23.0) mg/dL Creatinine (0.6-1.5) mg/dL Est Cr Clr Drug Dosing mL/min Estimated GFR (MDRD) ml/min Glucose (60-110) mg/dL POC Glucose 159 H 444 H 252 H (60-110) mg/dL Calcium (8.8-10.8) mg/dL H. pylori IgG Antibody (NEG) 12/16/16 12/16/16 12/16/16 Range/Units 05:45 05:45 05:46 WBC 12.02 H (4.0-11.0) K/uL RBC 4.92 (4.50-5.90) M/uL Hgb 10.7 L (13.0-17.0) g/dL Hct 33.8 L (38.0-50.0) % MCV 68.7 L (80.0-98.0) fL MCH 21.7 L (27.0-32.0) pg MCHC 31.7 (31.0-37.0) g/dL RDW Std Deviation 38.6 (28.0-62.0) fl RDW Coeff of Dania 16 H (11.0-15.0) % Plt Count 227 (150-400) K/uL MPV 10.50 (7.40-12.00) fL Neut % (Auto) 68.0 (48.0-80.0) % Lymph % (Auto) 25.8 (16.0-40.0) % [place] % (Auto) 5.5 (0.0-15.0) % Eos % (Auto) 0.4 (0.0-7.0) % Baso % (Auto) 0.3 (0.0-1.5) % Neut # (Auto) 8.2 H (1.4-5.7) K/uL Lymph # (Auto) 3.1 H (0.6-2.4) K/uL [place] # (Auto) 0.7 (0.0-0.8) K/uL Eos # (Auto) 0.1 (0.0-0.7) K/uL Baso # (Auto) 0.0 (0.0-0.1) K/uL Nucleated RBC % 0.0 /100WBC Nucleated RBCs # 0 K/uL Lactate (0.20-2.00) mmol/L Sodium 144 (136-146) mmol/L Potassium 3.4 L (3.5-5.1) mmol/L Chloride 109 (98-110) mmol/L Carbon Dioxide 27 (21-31) mmol/L BUN 15 (6.0-23.0) mg/dL Creatinine 1.1 (0.6-1.5) mg/dL Est Cr Clr Drug Dosing 95.35 mL/min Estimated GFR (MDRD) > 60.0 ml/min Glucose 70 (60-110) mg/dL POC Glucose 72 (60-110) mg/dL Calcium 8.2 L (8.8-10.8) mg/dL H. pylori IgG Antibody (NEG) 12/16/16 Range/Units 09:01 WBC (4.0-11.0) K/uL RBC (4.50-5.90) M/uL Hgb (13.0-17.0) g/dL Hct (38.0-50.0) % MCV (80.0-98.0) fL MCH (27.0-32.0) pg MCHC (31.0-37.0) g/dL RDW Std Deviation (28.0-62.0) fl RDW Coeff of Dania (11.0-15.0) % Plt Count (150-400) K/uL MPV (7.40-12.00) fL Neut % (Auto) (48.0-80.0) % Lymph % (Auto) (16.0-40.0) % [place] % (Auto) (0.0-15.0) % Eos % (Auto) (0.0-7.0) % Baso % (Auto) (0.0-1.5) % Neut # (Auto) (1.4-5.7) K/uL Lymph # (Auto) (0.6-2.4) K/uL [place] # (Auto) (0.0-0.8) K/uL Eos # (Auto) (0.0-0.7) K/uL Baso # (Auto) (0.0-0.1) K/uL Nucleated RBC % /100WBC Nucleated RBCs # K/uL Lactate (0.20-2.00) mmol/L Sodium (136-146) mmol/L Potassium (3.5-5.1) mmol/L Chloride (98-110) mmol/L Carbon Dioxide (21-31) mmol/L BUN (6.0-23.0) mg/dL Creatinine (0.6-1.5) mg/dL Est Cr Clr Drug Dosing mL/min Estimated GFR (MDRD) ml/min Glucose (60-110) mg/dL POC Glucose 117 H (60-110) mg/dL Calcium (8.8-10.8) mg/dL H. pylori IgG Antibody (NEG) Peter Results last 24 hrs: Microbiology 12/14/16 21:45 Aerobic Blood Culture - Preliminary Blood - Arm, Left NO GROWTH AFTER 1 DAY Anaerobic Blood Culture - Final 12/15/16 10:20 Influenza Type A Antigen Screen - Final Nasopharyngeal Swab - Nare, Right NEGATIVE INFLUENZA A VIRUS AG Influenza Type B Antigen Screen - Final NEGATIVE INFLUENZA B VIRUS AG Med Orders - Current: Current Medications Calcium Carbonate/Glycine (Tums) 1,000 mg PO DAILY [facility] Last Admin: 12/16/16 08:54 Dose: 1,000 mg Hydrochlorothiazide (Hydrochlorothiazide) 12.5 mg PO DAILY [facility] Last Admin: 12/16/16 08:38 Dose: 12.5 mg Hydromorphone HCl (Dilaudid) 0.25 mg IVPUSH Q2H PRN PRN Reason: Pain (severe 7-10) Last Admin: 12/15/16 00:13 Dose: 0.25 mg Sodium Chloride (Normal Saline) 1,000 mls @ 150 mls/hr IV ASDIRECTED [facility] Last Infusion: 12/16/16 05:33 Dose: 150 mls/hr Pantoprazole Sodium 80 mg/ (Sodium Chloride) 100 mls @ 10 mls/hr IV Q10H [facility] Last Infusion: 12/16/16 02:15 Dose: 10 mls/hr Insulin Aspart (Novolog) 0 unit SUBCUT Q4H [facility] PRN Reason: Protocol Last Admin: 12/16/16 09:11 Dose: Not Given Insulin Glargine (Lantus Solostar) 40 units SUBCUT BEDTIME [facility] Last Admin: 12/15/16 21:50 Dose: 40 units Lisinopril (Prinivil) 10 mg PO DAILY [facility] Last Admin: 12/16/16 08:39 Dose: 10 mg Lorazepam (Ativan) 1 mg IM Q6H PRN PRN Reason: Agitation Last Admin: 12/15/16 00:05 Dose: 1 mg Nicotine (Habitrol) 7 mg TRDERM Q24H PRN PRN Reason: smoking Last Admin: 12/15/16 22:38 Dose: 7 mg Ondansetron HCl (Zofran) 4 mg IVPUSH Q4H PRN PRN Reason: Nausea/Vomiting Last Admin: 12/15/16 18:03 Dose: 4 mg Phenol/Menthol (Chloraseptic Throat [place]) 0 ml MUCMEM Q2H PRN PRN Reason: Sore Throat Promethazine HCl (Phenergan) 25 mg IM Q6H PRN PRN Reason: Nausea Last Admin: 12/15/16 15:53 Dose: 25 mg Discontinued Medications Hydrochlorothiazide (Hydrochlorothiazide) 12.5 mg PO DAILY [facility] Hydromorphone HCl (Dilaudid) 0.25 mg IVPUSH Q2H PRN PRN Reason: Pain (severe 7-10) Pantoprazole Sodium 40 mg/ (Sodium Chloride) 10 mls @ 300 mls/hr IVPUSH NOW ONE Stop: 12/14/16 21:07 Last Admin: 12/14/16 21:53 Dose: 300 mls/hr Sodium Chloride (Normal Saline) 1,000 mls @ 75 mls/hr IV ASDIRECTED [facility] Last Admin: 12/14/16 23:34 Dose: 75 mls/hr Pantoprazole Sodium 80 mg/ (Sodium Chloride) 100 mls @ 10 mls/hr IV NOW STA Stop: 12/15/16 07:07 Last Admin: 12/14/16 23:15 Dose: 10 mls/hr Pantoprazole Sodium 40 mg/ (Sodium Chloride) 10 mls @ 300 mls/hr IVPUSH DAILY [facility] Last Admin: 12/15/16 09:09 Dose: 300 mls/hr Sodium Chloride (Normal Saline) 1,000 mls @ 999 mls/hr IV .Bolus ONE Stop: 12/15/16 08:58 Last Admin: 12/15/16 08:02 Dose: 999 mls/hr Magnesium Sulfate 2 gm/ Premix 50 mls @ 50 mls/hr IV ONETIME ONE Stop: 12/16/16 09:05 Last Admin: 12/16/16 09:16 Dose: 50 mls/hr Insulin Aspart (Novolog) 10 unit SUBCUT Q6H [facility] Last Admin: 12/15/16 06:14 Dose: 10 units Insulin Aspart (Novolog) 15 unit SUBCUT Q6H [facility] Last Admin: 12/15/16 09:09 Dose: Not Given Insulin Aspart (Novolog) 0 unit SUBCUT Q4H [facility] PRN Reason: Protocol Last Admin: 12/15/16 09:21 Dose: 6 units Lisinopril (Prinivil) 1 mg PO DAILY [facility] Last Admin: 12/15/16 14:51 Dose: Not Given Lisinopril (Prinivil) 10 mg PO DAILY [facility] Lisinopril (Prinivil) 10 mg PO DAILY [facility] Metoclopramide HCl (Reglan) 10 mg IVPUSH ONETIME ONE Stop: 12/14/16 21:07 Last Admin: 12/14/16 22:17 Dose: Not Given Miscellaneous Information (Remove Patch) 1 ea TRDERM 12/15/16@2200 [facility] Stop: 12/15/16 22:01 Last Admin: 12/15/16 22:20 Dose: 1 ea Nicotine (Habitrol) 7 mg TRDERM DAILY [facility] Last Admin: 12/15/16 10:22 Dose: Not Given Ondansetron HCl (Zofran) 8 mg IVPUSH ONETIME ONE Stop: 12/14/16 20:50 Last Admin: 12/14/16 20:53 Dose: 8 mg Potassium Chloride (Klor-Con M20) 40 meq PO ONETIME ONE Stop: 12/16/16 08:07 Last Admin: 12/16/16 08:37 Dose: 40 meq - Exam Quality Assessment: DVT prophylaxis General: alert, oriented, cooperative, no acute distress HEENT: Pupils equal, Pupils reactive, EOMI, Mucous membr. moist/pink Neck: supple, trachea midline Lungs: Clear to auscultation, Normal respiratory effort Cardiovascular: Regular Rate, Regular Rhythm Abdomen: bowel sounds present, soft, no tenderness, no distension Back Exam: normal inspection, full range of motion Extremities: no edema, normal pulses, no tenderness/swelling, no calf tenderness Peripheral Pulses: 2+: radial (L), radial (R), posterior tibial (L), posterior tibial (R), dorsalis pedis (L), dorsalis pedis (R) Skin: warm, dry, intact Neurological: no new focal deficit Psy/Mental Status: alert, normal affect, normal mood - Problem List & Annotations (1) GI bleed SNOMED Code(s): 13168459 Code(s): K92.2 - GASTROINTESTINAL HEMORRHAGE, UNSPECIFIED Status: Resolved Priority: High Current Visit: Yes Qualifiers: GI bleed type/associated pathology: gastritis Gastritis type: unspecified gastritis Qualified Code(s): K29.71 - Gastritis, unspecified, with bleeding (2) Hyperglycemia due to type 1 diabetes mellitus SNOMED Code(s): 569193402719694, 959246445330685 Code(s): E10.65 - TYPE 1 DIABETES MELLITUS WITH HYPERGLYCEMIA Status: Resolved Priority: High Current Visit: Yes (3) Lactate blood increase SNOMED Code(s): 8943156 Code(s): R79.89 - OTHER SPECIFIED ABNORMAL FINDINGS OF BLOOD CHEMISTRY Status: Resolved Priority: High Current Visit: Yes (4) Vomiting SNOMED Code(s): 129343187 Code(s): R11.10 - VOMITING, UNSPECIFIED Status: Resolved Priority: High Current Visit: No Onset Date: 09/28/14 - Problem List Review Problem List Initiated/Reviewed/Updated: Yes - My Orders Last 24 Hours: My Active Orders 12/15/16 11:25 Ondansetron [Zofran] 4 mg IVPUSH Q4H PRN 12/15/16 13:00 Insulin Aspart [NovoLOG] See Protocol SUBCUT Q4H 12/15/16 13:09 Transfer Patient (Change bed) [ADT] Routine 12/15/16 14:15 Pantoprazole [ProTONIX IV] 80 mg Sodium Chloride 0.9% [Normal Saline] 100 ml IV Q10H 12/15/16 15:00 Hydrochlorothiazide 12.5 mg PO DAILY Lisinopril [Prinivil] 10 mg PO DAILY 12/15/16 15:53 Nasogastric Orogastric Tube Removal [OM.PC] Routine 12/15/16 21:00 Insulin Glarg,Human.Rec.Analog [LantUS Solostar] 40 units SUBCUT BEDTIME 12/16/16 09:00 Calcium Carbonate [Tums] 1,000 mg PO DAILY 12/17/16 05:00 BMP [BASIC METABOLIC PANEL,BMP] [CHEM] DAILY CBC WITH AUTO DIFF [HEME] DAILY 12/18/16 05:00 BMP [BASIC METABOLIC PANEL,BMP] [CHEM] DAILY CBC WITH AUTO DIFF [HEME] DAILY 12/19/16 05:00 BMP [BASIC METABOLIC PANEL,BMP] [CHEM] DAILY CBC WITH AUTO DIFF [HEME] DAILY - Assessment Assessment:: I was present with the resident during the history and exam. I discussed the case with the resident and agree with the findings and plan as documented in the resident's note. - Plan Plan:: 31 yo male admitted 12/14/16 for intractable vomiting and acute GI bleed with elevated lactate and hyperglycemia with hx of type I diabetes, hypertension, and renal insufficiency. GI Bleed: No active bleed. NG removed last evening and patient tolerating clear liquids. Will advance diet today. Will cont.IV protonix. H. Pylori was negative. Most likely long standing bleed with no active bleeding at this time. Will follow-up with surgery as outpatient for EGD after discharge. Will need omeprazole and sulcrafate on discharge. Elevated Lactate with anion Gap: Resolved. diabetes type I: Lantus 40 subq given last evening. Blood sugar 75 this am. Will decrease to TIDAC checking today. ARF: Resolved with IVF hydration hypertension: Home lisinopril/htz stable VTE: SCD, hold pharm secondary to GI bleed. Dispo: Tomorrow pending. <MelissaJaved Misty - Last Filed: 12/16/16 12:45> - Patient Data Vitals - most recent: Last Vital Signs Temp 37.4 C 12/16/16 11:00 Pulse 89 12/16/16 11:00 Resp 18 12/16/16 11:00 BP 161/98 H 12/16/16 11:00 Pulse Ox 97 12/16/16 11:00 I&O - last 24 hours: Intake & Output 12/15/16 12/16/16 12/16/16 22:59 06:59 14:59 Intake Total 2900 1670 50 Output Total 1850 750 Balance 1050 920 50 Lab Results last 24 hrs: Laboratory Results - last 24 hr 12/15/16 12/15/16 12/15/16 Range/Units 11:44 17:49 22:07 WBC (4.0-11.0) K/uL RBC (4.50-5.90) M/uL Hgb (13.0-17.0) g/dL Hct (38.0-50.0) % MCV (80.0-98.0) fL MCH (27.0-32.0) pg MCHC (31.0-37.0) g/dL RDW Std Deviation (28.0-62.0) fl RDW Coeff of Dania (11.0-15.0) % Plt Count (150-400) K/uL MPV (7.40-12.00) fL Neut % (Auto) (48.0-80.0) % Lymph % (Auto) (16.0-40.0) % [place] % (Auto) (0.0-15.0) % Eos % (Auto) (0.0-7.0) % Baso % (Auto) (0.0-1.5) % Neut # (Auto) (1.4-5.7) K/uL Lymph # (Auto) (0.6-2.4) K/uL [place] # (Auto) (0.0-0.8) K/uL Eos # (Auto) (0.0-0.7) K/uL Baso # (Auto) (0.0-0.1) K/uL Nucleated RBC % /100WBC Nucleated RBCs # K/uL Sodium 145 (136-146) mmol/L Potassium 3.8 (3.5-5.1) mmol/L Chloride 109 (98-110) mmol/L Carbon Dioxide 27 (21-31) mmol/L BUN 24 H (6.0-23.0) mg/dL Creatinine 1.5 (0.6-1.5) mg/dL Est Cr Clr Drug Dosing 69.92 mL/min Estimated GFR (MDRD) > 60.0 ml/min Glucose 179 H (60-110) mg/dL POC Glucose 444 H 252 H (60-110) mg/dL Hemoglobin A1c (0.0-6.0) % Calcium 8.6 L (8.8-10.8) mg/dL 12/16/16 12/16/16 12/16/16 Range/Units 05:45 05:45 05:45 WBC 12.02 H (4.0-11.0) K/uL RBC 4.92 (4.50-5.90) M/uL Hgb 10.7 L (13.0-17.0) g/dL Hct 33.8 L (38.0-50.0) % MCV 68.7 L (80.0-98.0) fL MCH 21.7 L (27.0-32.0) pg MCHC 31.7 (31.0-37.0) g/dL RDW Std Deviation 38.6 (28.0-62.0) fl RDW Coeff of Dania 16 H (11.0-15.0) % Plt Count 227 (150-400) K/uL MPV 10.50 (7.40-12.00) fL Neut % (Auto) 68.0 (48.0-80.0) % Lymph % (Auto) 25.8 (16.0-40.0) % [place] % (Auto) 5.5 (0.0-15.0) % Eos % (Auto) 0.4 (0.0-7.0) % Baso % (Auto) 0.3 (0.0-1.5) % Neut # (Auto) 8.2 H (1.4-5.7) K/uL Lymph # (Auto) 3.1 H (0.6-2.4) K/uL [place] # (Auto) 0.7 (0.0-0.8) K/uL Eos # (Auto) 0.1 (0.0-0.7) K/uL Baso # (Auto) 0.0 (0.0-0.1) K/uL Nucleated RBC % 0.0 /100WBC Nucleated RBCs # 0 K/uL Sodium 144 (136-146) mmol/L Potassium 3.4 L (3.5-5.1) mmol/L Chloride 109 (98-110) mmol/L Carbon Dioxide 27 (21-31) mmol/L BUN 15 (6.0-23.0) mg/dL Creatinine 1.1 (0.6-1.5) mg/dL Est Cr Clr Drug Dosing 95.35 mL/min Estimated GFR (MDRD) > 60.0 ml/min Glucose 70 (60-110) mg/dL POC Glucose (60-110) mg/dL Hemoglobin A1c 14.0 H (0.0-6.0) % Calcium 8.2 L (8.8-10.8) mg/dL 12/16/16 12/16/16 12/16/16 Range/Units 05:46 09:01 11:44 WBC (4.0-11.0) K/uL RBC (4.50-5.90) M/uL Hgb (13.0-17.0) g/dL Hct (38.0-50.0) % MCV (80.0-98.0) fL MCH (27.0-32.0) pg MCHC (31.0-37.0) g/dL RDW Std Deviation (28.0-62.0) fl RDW Coeff of Dania (11.0-15.0) % Plt Count (150-400) K/uL MPV (7.40-12.00) fL Neut % (Auto) (48.0-80.0) % Lymph % (Auto) (16.0-40.0) % [place] % (Auto) (0.0-15.0) % Eos % (Auto) (0.0-7.0) % Baso % (Auto) (0.0-1.5) % Neut # (Auto) (1.4-5.7) K/uL Lymph # (Auto) (0.6-2.4) K/uL [place] # (Auto) (0.0-0.8) K/uL Eos # (Auto) (0.0-0.7) K/uL Baso # (Auto) (0.0-0.1) K/uL Nucleated RBC % /100WBC Nucleated RBCs # K/uL Sodium (136-146) mmol/L Potassium (3.5-5.1) mmol/L Chloride (98-110) mmol/L Carbon Dioxide (21-31) mmol/L BUN (6.0-23.0) mg/dL Creatinine (0.6-1.5) mg/dL Est Cr Clr Drug Dosing mL/min Estimated GFR (MDRD) ml/min Glucose (60-110) mg/dL POC Glucose 72 117 H 93 (60-110) mg/dL Hemoglobin A1c (0.0-6.0) % Calcium (8.8-10.8) mg/dL Peter Results last 24 hrs: Microbiology 12/14/16 21:45 Aerobic Blood Culture - Preliminary Blood - Arm, Left NO GROWTH AFTER 1 DAY Anaerobic Blood Culture - Final 12/15/16 10:20 Influenza Type A Antigen Screen - Final Nasopharyngeal Swab - Nare, Right NEGATIVE INFLUENZA A VIRUS AG Influenza Type B Antigen Screen - Final NEGATIVE INFLUENZA B VIRUS AG Med Orders - Current: Current Medications Calcium Carbonate/Glycine (Tums) 1,000 mg PO DAILY [facility] Last Admin: 12/16/16 08:54 Dose: 1,000 mg Hydrochlorothiazide (Hydrochlorothiazide) 12.5 mg PO DAILY [facility] Last Admin: 12/16/16 08:38 Dose: 12.5 mg Hydromorphone HCl (Dilaudid) 0.25 mg IVPUSH Q2H PRN PRN Reason: Pain (severe 7-10) Last Admin: 12/15/16 00:13 Dose: 0.25 mg Sodium Chloride (Normal Saline) 1,000 mls @ 150 mls/hr IV ASDIRECTED [facility] Last Infusion: 12/16/16 05:33 Dose: 150 mls/hr Pantoprazole Sodium 80 mg/ (Sodium Chloride) 100 mls @ 10 mls/hr IV Q10H [facility] Last Infusion: 12/16/16 02:15 Dose: 10 mls/hr Insulin Aspart (Novolog) 0 unit SUBCUT TIDAC [facility] PRN Reason: Protocol Last Admin: 12/16/16 11:55 Dose: Not Given Insulin Glargine (Lantus Solostar) 40 units SUBCUT BEDTIME [facility] Last Admin: 12/15/16 21:50 Dose: 40 units Lisinopril (Prinivil) 10 mg PO DAILY [facility] Last Admin: 12/16/16 08:39 Dose: 10 mg Lorazepam (Ativan) 1 mg IM Q6H PRN PRN Reason: Agitation Last Admin: 12/15/16 00:05 Dose: 1 mg Nicotine (Habitrol) 7 mg TRDERM Q24H PRN PRN Reason: smoking Last Admin: 12/15/16 22:38 Dose: 7 mg Ondansetron HCl (Zofran) 4 mg IVPUSH Q4H PRN PRN Reason: Nausea/Vomiting Last Admin: 12/15/16 18:03 Dose: 4 mg Phenol/Menthol (Chloraseptic Throat [place]) 0 ml MUCMEM Q2H PRN PRN Reason: Sore Throat Last Admin: 12/16/16 12:03 Dose: 1 spray Promethazine HCl (Phenergan) 25 mg IM Q6H PRN PRN Reason: Nausea Last Admin: 12/15/16 15:53 Dose: 25 mg Discontinued Medications Hydrochlorothiazide (Hydrochlorothiazide) 12.5 mg PO DAILY [facility] Hydromorphone HCl (Dilaudid) 0.25 mg IVPUSH Q2H PRN PRN Reason: Pain (severe 7-10) Pantoprazole Sodium 40 mg/ (Sodium Chloride) 10 mls @ 300 mls/hr IVPUSH NOW ONE Stop: 12/14/16 21:07 Last Admin: 12/14/16 21:53 Dose: 300 mls/hr Sodium Chloride (Normal Saline) 1,000 mls @ 75 mls/hr IV ASDIRECTED [facility] Last Admin: 12/14/16 23:34 Dose: 75 mls/hr Pantoprazole Sodium 80 mg/ (Sodium Chloride) 100 mls @ 10 mls/hr IV NOW STA Stop: 12/15/16 07:07 Last Admin: 12/14/16 23:15 Dose: 10 mls/hr Pantoprazole Sodium 40 mg/ (Sodium Chloride) 10 mls @ 300 mls/hr IVPUSH DAILY [facility] Last Admin: 12/15/16 09:09 Dose: 300 mls/hr Sodium Chloride (Normal Saline) 1,000 mls @ 999 mls/hr IV .Bolus ONE Stop: 12/15/16 08:58 Last Admin: 12/15/16 08:02 Dose: 999 mls/hr Magnesium Sulfate 2 gm/ Premix 50 mls @ 50 mls/hr IV ONETIME ONE Stop: 12/16/16 09:05 Last Admin: 12/16/16 09:16 Dose: 50 mls/hr Insulin Aspart (Novolog) 10 unit SUBCUT Q6H [facility] Last Admin: 12/15/16 06:14 Dose: 10 units Insulin Aspart (Novolog) 15 unit SUBCUT Q6H [facility] Last Admin: 12/15/16 09:09 Dose: Not Given Insulin Aspart (Novolog) 0 unit SUBCUT Q4H [facility] PRN Reason: Protocol Last Admin: 12/15/16 09:21 Dose: 6 units Insulin Aspart (Novolog) 0 unit SUBCUT Q4H [facility] PRN Reason: Protocol Last Admin: 12/16/16 09:11 Dose: Not Given Lisinopril (Prinivil) 1 mg PO DAILY [facility] Last Admin: 12/15/16 14:51 Dose: Not Given Lisinopril (Prinivil) 10 mg PO DAILY [facility] Lisinopril (Prinivil) 10 mg PO DAILY [facility] Metoclopramide HCl (Reglan) 10 mg IVPUSH ONETIME ONE Stop: 12/14/16 21:07 Last Admin: 12/14/16 22:17 Dose: Not Given Miscellaneous Information (Remove Patch) 1 ea TRDERM 12/15/16@2200 [facility] Stop: 12/15/16 22:01 Last Admin: 12/15/16 22:20 Dose: 1 ea Nicotine (Habitrol) 7 mg TRDERM DAILY [facility] Last Admin: 12/15/16 10:22 Dose: Not Given Ondansetron HCl (Zofran) 8 mg IVPUSH ONETIME ONE Stop: 12/14/16 20:50 Last Admin: 12/14/16 20:53 Dose: 8 mg Potassium Chloride (Klor-Con M20) 40 meq PO ONETIME ONE Stop: 12/16/16 08:07 Last Admin: 12/16/16 08:37 Dose: 40 meq - My Orders Last 24 Hours: My Active Orders 12/15/16 21:00 Nicotine [Habitrol] 7 mg TRDERM Q24H PRN 12/15/16 22:03 Phenol [Chloraseptic Throat [place]] See Dose Instructions [facility]CMEM Q2H PRN - Plan Plan:: I was present with the resident during the history and exam. I discussed the case with the resident and agree with the findings and plan as documented in the resident's note
[2016-12-16] MEDS: Insulin Glargine,Human Rec. Analog 100 Units/ML 3 ML Pen SUBCUT SCH (20:56)
[2016-12-17] MEDS: Sodium Chloride 0.9% 1,000 ML IV SCH (03:36)
[2016-12-17] MEDS: Nicotine 7 MG/24 Hr Patch TRDERM PRN (05:22)
[2016-12-17 05:37] LABS: CHLORIDE,CL 107 mmol/L (98-110); SODIUM,NA 140 mmol/L (136-146)
[2016-12-17] MEDS: Lisinopril 10 MG Tab PO SCH (06:01)
[2016-12-17] MEDS: Hydrochlorothiazide 12.5 MG Cap PO SCH ×2 (06:02→08:54)
[2016-12-17] MEDS: Insulin Aspart 100 Units/ML 3 ML Pen SUBCUT SCH ×2 (06:44→11:41)
[2016-12-17] MEDS ORDERED: Potassium Chloride 20 MEQ Tab.ER PO ONE (08:01)
[2016-12-17] MEDS ORDERED: Calcium Carbonate 500 MG Tab.Chew PO ONE (08:03)
[2016-12-17 08:20] VITALS: BP 170/111
[2016-12-17] MEDS ORDERED: Lisinopril 10 MG Tab PO SCH (09:00)
--- NOTE | 2016-12-17 11:15 | PCM.DCSUM1 ---
<Chavez Anne - Last Filed: 12/17/16 11:13> Discharge Summary - Hospital Course HPI Initial Comments: 31 yo male admitted 12/14/16 for intractable vomiting and acute GI bleed with elevated lactate and hyperglycemia with hx of type I diabetes, hypertension, and renal insufficiency. Brief History: Patient presented to ED with nausea and vomiting of coffee ground material as well as generalized weaknees. He is a known poorly controlled diabetic. Inital labs showed increase lactate at 3.8 and DKA with an anion gap of 16, urine positive for ketones, with a blood sugar of 415. CXR and influeza were negative. Patient was admitted for acute GI bleed and DKA. - Discharge Data Discharge Date: 12/17/16 Discharge Disposition: Home, Self-Care 01 Condition: Good - Discharge Diagnosis/Problem(s) (1) GI bleed SNOMED Code(s): 76335741 ICD Code: K92.2 - GASTROINTESTINAL HEMORRHAGE, UNSPECIFIED Status: Resolved Priority: High Qualifiers: GI bleed type/associated pathology: gastritis Gastritis type: unspecified gastritis Qualified Code(s): K29.71 - Gastritis, unspecified, with bleeding (2) Hyperglycemia due to type 1 diabetes mellitus SNOMED Code(s): 933876821635560, 481084748136905 ICD Code: E10.65 - TYPE 1 DIABETES MELLITUS WITH HYPERGLYCEMIA Status: Resolved Priority: High (3) Lactate blood increase SNOMED Code(s): 6463149 ICD Code: R79.89 - OTHER SPECIFIED ABNORMAL FINDINGS OF BLOOD CHEMISTRY Status: Resolved Priority: High (4) Vomiting SNOMED Code(s): 823600393 ICD Code: R11.10 - VOMITING, UNSPECIFIED Status: Resolved Priority: High Onset Date: 09/28/14 - Patient Summary/Data Consults: Consultations 12/16/16 10:18 Consult to Medical Delivery Technician [Consult to Diabetic Nurse Specialist] [CONS] Routine Hospital Course: see below summary. - Patient Instructions Diet: Diabetic Diet Activity: Rest and Relax Today Driving: Do Not Drive Showering/Bathing: May Shower Notify Provider of: Fever, Increased Pain, Nausea and/or Vomiting Other/Special Instructions: Follow-up with Dr. Infante. Follow-up with Dr. Pompa surgeon for your GI bleed and EGD. Follow-up with Meryl clinical informatics educator. Take medications as prescribed. Have decreased lantus at night to 35 units. Increased lisinopril/htz to 20/12.5 from 06/25.. Take Sulcrafate in slurry form as we discussed. Return to ED if having any return of symptoms. - Discharge Plan Prescriptions/Med Rec: Sucralfate [Carafate] 1 gm PO Q6HR #56 tablet Insulin Glarg,Human.Rec.Analog [Lantus] 35 unit SUBCUT BEDTIME #1 vial Lisinopril/Hydrochlorothiazide [Lisinopril-Hctz 20-12.5 mg Tab] 1 each PO DAILY #14 tablet Home Medications: Home Meds Insulin Lispro [Humalog Kwikpen U-100] 0 unit SUBCNJ ASDIRECTED PRN 04/03/14 [ History] Omeprazole [Prilosec] 40 mg PO DAILY #30 capsule. 09/27/14 [Rx] Ondansetron [Zofran ODT] 4 mg SL Q4H PRN #30 tab.dis 12/14/16 [Rx] Insulin Glarg,Human.Rec.Analog [Lantus] 35 unit SUBCUT BEDTIME #1 vial 12/17/16 [Rx] Lisinopril/Hydrochlorothiazide [Lisinopril-Hctz 20-12.5 mg Tab] 1 each PO DAILY #14 tablet 12/17/16 [Rx] Sucralfate [Carafate] 1 gm PO Q6HR #56 tablet 12/17/16 [Rx] Patient Handouts: Gastrointestinal Bleeding, Type 1 Diabetes Mellitus, Adult, Hydrochlorothiazide, HCTZ; Lisinopril tablets, Sucralfate tablets, Insulin Glargine injection Referrals: Liliana West MD [Physician] - 12/29/16 1:00 pm Fitz Infante MD [Physician] - 12/22/16 2:00 pm - Discharge Summary/Plan Comment DC Time >30 min.: Yes Discharge Summary/Plan Comment: 31 yo male admitted 12/14/16 for intractable vomiting and acute GI bleed with elevated lactate and hyperglycemia with hx of type I diabetes, hypertension, and renal insufficiency. Patient presented to ED with nausea and vomiting of coffee ground material as well as generalized weakness. He is a known poorly controlled diabetic. Initial labs showed increase lactate at 3.8 and DKA with an anion gap of 16, urine positive for ketones, with a blood sugar of 415. CXR and influeza were negative. Patient was admitted for acute GI bleed and DKA. Patient was IVF resuscitated and lactate was cleared and gap closed. Surgery was consulted and patient was treated with protonix drip. Surgery felt that there was no acute bleed and most likely gastritis from vomiting. He was scheduled for follow-up as an outpatient for EGD. He was also given sucralfate in addition to omeprazole on discharge. After sugars stabilized patient was started on home lantus of 40 units at night. He had two episodes of low sugars in the am (50's) and lantus was decreased on discharge to 35 units. HgbA1C was found to be elevated to 14 showing worsening control. Diabetic education visited with the patient multiple times and helped him fill out an application for a pump. We also set him up with an outpatient follow-up with diabetic education. Patient admitted to not watching his sugars closely when at work. Patient would benefit greatly from new insulin pump. Patient also was found to be more hypertensive during his hospital stay and his lisinopril/htz was increased form 10/12.5mg to 20/12.5mg. Patient overall did well during his stay and had quick resolution of his symptoms. He was discharge in good condition with a prescription for Sucralfate qid, omeprazole daily, decrease lantus to 35 units from 40, increase lisinopril/htz from 10/12.5 to 20/12.5, as well as a follow-up appointment with his pcp, Dr. Infante, diabetic education, and Dr. Pompa, surgery for EGD. - Patient Data Vitals - Most Recent: Last Vital Signs Temp 36.7 C 12/17/16 08:00 Pulse 101 H 12/17/16 08:00 Resp 22 H 12/17/16 08:00 BP 170/111 H 12/17/16 08:54 Pulse Ox 97 12/17/16 08:00 Weight - Most Recent: 77.11 kg I&O - Last 24 hours: Intake & Output 12/16/16 12/17/16 12/17/16 22:59 06:59 14:59 Intake Total 1760 5244 Output Total 1200 1200 Balance 560 4044 Lab Results - Last 24 hrs: Laboratory Results - last 24 hr 12/16/16 12/16/16 12/16/16 Range/Units 11:44 16:40 20:16 WBC (4.0-11.0) K/uL RBC (4.50-5.90) M/uL Hgb (13.0-17.0) g/dL Hct (38.0-50.0) % MCV (80.0-98.0) fL MCH (27.0-32.0) pg MCHC (31.0-37.0) g/dL RDW Std Deviation (28.0-62.0) fl RDW Coeff of Dania (11.0-15.0) % Plt Count (150-400) K/uL MPV (7.40-12.00) fL Neut % (Auto) (48.0-80.0) % Lymph % (Auto) (16.0-40.0) % [place] % (Auto) (0.0-15.0) % Eos % (Auto) (0.0-7.0) % Baso % (Auto) (0.0-1.5) % Neut # (Auto) (1.4-5.7) K/uL Lymph # (Auto) (0.6-2.4) K/uL [place] # (Auto) (0.0-0.8) K/uL Eos # (Auto) (0.0-0.7) K/uL Baso # (Auto) (0.0-0.1) K/uL Nucleated RBC % /100WBC Nucleated RBCs # K/uL Sodium (136-146) mmol/L Potassium (3.5-5.1) mmol/L Chloride (98-110) mmol/L Carbon Dioxide (21-31) mmol/L BUN (6.0-23.0) mg/dL Creatinine (0.6-1.5) mg/dL Est Cr Clr Drug Dosing mL/min Estimated GFR (MDRD) ml/min Glucose (60-110) mg/dL POC Glucose 93 94 185 H (60-110) mg/dL Calcium (8.8-10.8) mg/dL 12/17/16 12/17/16 12/17/16 Range/Units 04:39 04:39 05:00 WBC 7.18 (4.0-11.0) K/uL RBC 5.46 (4.50-5.90) M/uL Hgb 11.7 L (13.0-17.0) g/dL Hct 37.4 L (38.0-50.0) % MCV 68.5 L (80.0-98.0) fL MCH 21.4 L (27.0-32.0) pg MCHC 31.3 (31.0-37.0) g/dL RDW Std Deviation 38.0 (28.0-62.0) fl RDW Coeff of Dania 16 H (11.0-15.0) % Plt Count 250 (150-400) K/uL MPV 10.60 (7.40-12.00) fL Neut % (Auto) 44.5 L (48.0-80.0) % Lymph % (Auto) 48.1 H (16.0-40.0) % [place] % (Auto) 4.9 (0.0-15.0) % Eos % (Auto) 2.2 (0.0-7.0) % Baso % (Auto) 0.3 (0.0-1.5) % Neut # (Auto) 3.2 (1.4-5.7) K/uL Lymph # (Auto) 3.5 H (0.6-2.4) K/uL [place] # (Auto) 0.4 (0.0-0.8) K/uL Eos # (Auto) 0.2 (0.0-0.7) K/uL Baso # (Auto) 0.0 (0.0-0.1) K/uL Nucleated RBC % 0.0 /100WBC Nucleated RBCs # 0 K/uL Sodium 140 (136-146) mmol/L Potassium 3.7 (3.5-5.1) mmol/L Chloride 107 (98-110) mmol/L Carbon Dioxide 25 (21-31) mmol/L BUN 9 (6.0-23.0) mg/dL Creatinine 0.9 (0.6-1.5) mg/dL Est Cr Clr Drug Dosing 116.54 mL/min Estimated GFR (MDRD) > 60.0 ml/min Glucose 51 L (60-110) mg/dL POC Glucose 52 L (60-110) mg/dL Calcium 8.3 L (8.8-10.8) mg/dL 12/17/16 Range/Units 05:41 WBC (4.0-11.0) K/uL RBC (4.50-5.90) M/uL Hgb (13.0-17.0) g/dL Hct (38.0-50.0) % MCV (80.0-98.0) fL MCH (27.0-32.0) pg MCHC (31.0-37.0) g/dL RDW Std Deviation (28.0-62.0) fl RDW Coeff of Dania (11.0-15.0) % Plt Count (150-400) K/uL MPV (7.40-12.00) fL Neut % (Auto) (48.0-80.0) % Lymph % (Auto) (16.0-40.0) % [place] % (Auto) (0.0-15.0) % Eos % (Auto) (0.0-7.0) % Baso % (Auto) (0.0-1.5) % Neut # (Auto) (1.4-5.7) K/uL Lymph # (Auto) (0.6-2.4) K/uL [place] # (Auto) (0.0-0.8) K/uL Eos # (Auto) (0.0-0.7) K/uL Baso # (Auto) (0.0-0.1) K/uL Nucleated RBC % /100WBC Nucleated RBCs # K/uL Sodium (136-146) mmol/L Potassium (3.5-5.1) mmol/L Chloride (98-110) mmol/L Carbon Dioxide (21-31) mmol/L BUN (6.0-23.0) mg/dL Creatinine (0.6-1.5) mg/dL Est Cr Clr Drug Dosing mL/min Estimated GFR (MDRD) ml/min Glucose (60-110) mg/dL POC Glucose 119 H (60-110) mg/dL Calcium (8.8-10.8) mg/dL FRANTZ Results - Last 24 hrs: Microbiology 12/14/16 21:45 Aerobic Blood Culture - Preliminary Blood - Arm, Left NO GROWTH AFTER 2 DAYS Anaerobic Blood Culture - Final Med Orders - Current: Current Medications Hydrochlorothiazide (Hydrochlorothiazide) 12.5 mg PO DAILY [facility] Last Admin: 12/17/16 08:54 Dose: 12.5 mg Hydromorphone HCl (Dilaudid) 0.25 mg IVPUSH Q2H PRN PRN Reason: Pain (severe 7-10) Last Admin: 12/15/16 00:13 Dose: 0.25 mg Pantoprazole Sodium 80 mg/ (Sodium Chloride) 100 mls @ 10 mls/hr IV Q10H [facility] Last Admin: 12/16/16 23:19 Dose: 10 mls/hr Insulin Aspart (Novolog) 0 unit SUBCUT TIDAC [facility] PRN Reason: Protocol Last Admin: 12/17/16 06:44 Dose: Not Given Insulin Glargine (Lantus Solostar) 40 units SUBCUT BEDTIME [facility] Last Admin: 12/16/16 20:56 Dose: 40 units Lisinopril (Prinivil) 20 mg PO DAILY [facility] Last Admin: 12/17/16 08:54 Dose: 20 mg Lorazepam (Ativan) 1 mg IM Q6H PRN PRN Reason: Agitation Last Admin: 12/15/16 00:05 Dose: 1 mg Nicotine (Habitrol) 7 mg TRDERM Q24H PRN PRN Reason: smoking Last Admin: 12/17/16 05:22 Dose: 7 mg Ondansetron HCl (Zofran) 4 mg IVPUSH Q4H PRN PRN Reason: Nausea/Vomiting Last Admin: 12/15/16 18:03 Dose: 4 mg Phenol/Menthol (Chloraseptic Throat [place]) 0 ml MUCMEM Q2H PRN PRN Reason: Sore Throat Last Admin: 12/16/16 12:03 Dose: 1 spray Promethazine HCl (Phenergan) 25 mg IM Q6H PRN PRN Reason: Nausea Last Admin: 12/15/16 15:53 Dose: 25 mg Discontinued Medications Calcium Carbonate/Glycine (Tums) 1,000 mg PO DAILY [facility] Last Admin: 12/16/16 08:54 Dose: 1,000 mg Calcium Carbonate/Glycine (Tums) 1,000 mg PO ONETIME ONE Stop: 12/17/16 08:04 Last Admin: 12/17/16 08:54 Dose: 1,000 mg Hydrochlorothiazide (Hydrochlorothiazide) 12.5 mg PO DAILY [facility] Hydromorphone HCl (Dilaudid) 0.25 mg IVPUSH Q2H PRN PRN Reason: Pain (severe 7-10) Pantoprazole Sodium 40 mg/ (Sodium Chloride) 10 mls @ 300 mls/hr IVPUSH NOW ONE Stop: 12/14/16 21:07 Last Admin: 12/14/16 21:53 Dose: 300 mls/hr Sodium Chloride (Normal Saline) 1,000 mls @ 75 mls/hr IV ASDIRECTED [facility] Last Admin: 12/14/16 23:34 Dose: 75 mls/hr Pantoprazole Sodium 80 mg/ (Sodium Chloride) 100 mls @ 10 mls/hr IV NOW STA Stop: 12/15/16 07:07 Last Admin: 12/14/16 23:15 Dose: 10 mls/hr Pantoprazole Sodium 40 mg/ (Sodium Chloride) 10 mls @ 300 mls/hr IVPUSH DAILY [facility] Last Admin: 12/15/16 09:09 Dose: 300 mls/hr Sodium Chloride (Normal Saline) 1,000 mls @ 150 mls/hr IV ASDIRECTED [facility] Last Admin: 12/17/16 03:36 Dose: 150 mls/hr Sodium Chloride (Normal Saline) 1,000 mls @ 999 mls/hr IV .Bolus ONE Stop: 12/15/16 08:58 Last Admin: 12/15/16 08:02 Dose: 999 mls/hr Magnesium Sulfate 2 gm/ Premix 50 mls @ 50 mls/hr IV ONETIME ONE Stop: 12/16/16 09:05 Last Admin: 12/16/16 09:16 Dose: 50 mls/hr Insulin Aspart (Novolog) 10 unit SUBCUT Q6H [facility] Last Admin: 12/15/16 06:14 Dose: 10 units Insulin Aspart (Novolog) 15 unit SUBCUT Q6H [facility] Last Admin: 12/15/16 09:09 Dose: Not Given Insulin Aspart (Novolog) 0 unit SUBCUT Q4H MICHAEL PRN Reason: Protocol Last Admin: 12/15/16 09:21 Dose: 6 units Insulin Aspart (Novolog) 0 unit SUBCUT Q4H MICHAEL PRN Reason: Protocol Last Admin: 12/16/16 09:11 Dose: Not Given Lisinopril (Prinivil) 1 mg PO DAILY [facility] Last Admin: 12/15/16 14:51 Dose: Not Given Lisinopril (Prinivil) 10 mg PO DAILY [facility] Lisinopril (Prinivil) 10 mg PO DAILY [facility] Lisinopril (Prinivil) 10 mg PO DAILY [facility] Last Admin: 12/17/16 06:01 Dose: 10 mg Metoclopramide HCl (Reglan) 10 mg IVPUSH ONETIME ONE Stop: 12/14/16 21:07 Last Admin: 12/14/16 22:17 Dose: Not Given Miscellaneous Information (Remove Patch) 1 ea TRDERM 12/15/16@2200 [facility] Stop: 12/15/16 22:01 Last Admin: 12/15/16 22:20 Dose: 1 ea Nicotine (Habitrol) 7 mg TRDERM DAILY [facility] Last Admin: 12/15/16 10:22 Dose: Not Given Ondansetron HCl (Zofran) 8 mg IVPUSH ONETIME ONE Stop: 12/14/16 20:50 Last Admin: 12/14/16 20:53 Dose: 8 mg Potassium Chloride (Klor-Con M20) 40 meq PO ONETIME ONE Stop: 12/16/16 08:07 Last Admin: 12/16/16 08:37 Dose: 40 meq Potassium Chloride (Klor-Con M20) 40 meq PO ONETIME ONE Stop: 12/17/16 08:02 Last Admin: 12/17/16 08:57 Dose: 40 meq *Q Meaningful Use (DIS) - VTE *Q VTE Criteria *Q: - Stroke *Q Stroke Criteria *Q: - AMI *Q AMI Criteria *Q: <Javed Torres O - Last Filed: 12/17/16 14:40> Discharge Summary - Patient Summary/Data Consults: Consultations 12/16/16 10:18 Consult to Medical Delivery Technician [Consult to Diabetic Nurse Specialist] [CONS] Routine - Discharge Summary/Plan Comment Discharge Summary/Plan Comment: I was present withthe resident during the history and exam. I discussed the case with the resident and agree with the findings and plan as documented in the resident's note - Patient Data Vitals - Most Recent: Last Vital Signs Temp 36.7 C 12/17/16 08:00 Pulse 101 H 12/17/16 08:00 Resp 22 H 12/17/16 08:00 BP 170/111 H 12/17/16 08:54 Pulse Ox 97 12/17/16 08:00 I&O - Last 24 hours: Intake & Output 12/16/16 12/17/16 12/17/16 22:59 06:59 14:59 Intake Total 1760 5244 Output Total 1200 1200 Balance 560 4044 Lab Results - Last 24 hrs: Laboratory Results - last 24 hr 12/16/16 12/16/16 12/16/16 Range/Units 01:37 16:40 20:16 WBC (4.0-11.0) K/uL RBC (4.50-5.90) M/uL Hgb (13.0-17.0) g/dL Hct (38.0-50.0) % MCV (80.0-98.0) fL MCH (27.0-32.0) pg MCHC (31.0-37.0) g/dL RDW Std Deviation (28.0-62.0) fl RDW Coeff of Dania (11.0-15.0) % Plt Count (150-400) K/uL MPV (7.40-12.00) fL Neut % (Auto) (48.0-80.0) % Lymph % (Auto) (16.0-40.0) % [place] % (Auto) (0.0-15.0) % Eos % (Auto) (0.0-7.0) % Baso % (Auto) (0.0-1.5) % Neut # (Auto) (1.4-5.7) K/uL Lymph # (Auto) (0.6-2.4) K/uL [place] # (Auto) (0.0-0.8) K/uL Eos # (Auto) (0.0-0.7) K/uL Baso # (Auto) (0.0-0.1) K/uL Nucleated RBC % /100WBC Nucleated RBCs # K/uL Sodium (136-146) mmol/L Potassium (3.5-5.1) mmol/L Chloride (98-110) mmol/L Carbon Dioxide (21-31) mmol/L BUN (6.0-23.0) mg/dL Creatinine (0.6-1.5) mg/dL Est Cr Clr Drug Dosing mL/min Estimated GFR (MDRD) ml/min Glucose (60-110) mg/dL POC Glucose 141 H 94 185 H (60-110) mg/dL Calcium (8.8-10.8) mg/dL 12/17/16 12/17/16 12/17/16 Range/Units 04:39 04:39 05:00 WBC 7.18 (4.0-11.0) K/uL RBC 5.46 (4.50-5.90) M/uL Hgb 11.7 L (13.0-17.0) g/dL Hct 37.4 L (38.0-50.0) % MCV 68.5 L (80.0-98.0) fL MCH 21.4 L (27.0-32.0) pg MCHC 31.3 (31.0-37.0) g/dL RDW Std Deviation 38.0 (28.0-62.0) fl RDW Coeff of Dania 16 H (11.0-15.0) % Plt Count 250 (150-400) K/uL MPV 10.60 (7.40-12.00) fL Neut % (Auto) 44.5 L (48.0-80.0) % Lymph % (Auto) 48.1 H (16.0-40.0) % [place] % (Auto) 4.9 (0.0-15.0) % Eos % (Auto) 2.2 (0.0-7.0) % Baso % (Auto) 0.3 (0.0-1.5) % Neut # (Auto) 3.2 (1.4-5.7) K/uL Lymph # (Auto) 3.5 H (0.6-2.4) K/uL [place] # (Auto) 0.4 (0.0-0.8) K/uL Eos # (Auto) 0.2 (0.0-0.7) K/uL Baso # (Auto) 0.0 (0.0-0.1) K/uL Nucleated RBC % 0.0 /100WBC Nucleated RBCs # 0 K/uL Sodium 140 (136-146) mmol/L Potassium 3.7 (3.5-5.1) mmol/L Chloride 107 (98-110) mmol/L Carbon Dioxide 25 (21-31) mmol/L BUN 9 (6.0-23.0) mg/dL Creatinine 0.9 (0.6-1.5) mg/dL Est Cr Clr Drug Dosing 116.54 mL/min Estimated GFR (MDRD) > 60.0 ml/min Glucose 51 L (60-110) mg/dL POC Glucose 52 L (60-110) mg/dL Calcium 8.3 L (8.8-10.8) mg/dL 12/17/16 12/17/16 Range/Units 05:41 08:37 WBC (4.0-11.0) K/uL RBC (4.50-5.90) M/uL Hgb (13.0-17.0) g/dL Hct (38.0-50.0) % MCV (80.0-98.0) fL MCH (27.0-32.0) pg MCHC (31.0-37.0) g/dL RDW Std Deviation (28.0-62.0) fl RDW Coeff of Dania (11.0-15.0) % Plt Count (150-400) K/uL MPV (7.40-12.00) fL Neut % (Auto) (48.0-80.0) % Lymph % (Auto) (16.0-40.0) % [place] % (Auto) (0.0-15.0) % Eos % (Auto) (0.0-7.0) % Baso % (Auto) (0.0-1.5) % Neut # (Auto) (1.4-5.7) K/uL Lymph # (Auto) (0.6-2.4) K/uL [place] # (Auto) (0.0-0.8) K/uL Eos # (Auto) (0.0-0.7) K/uL Baso # (Auto) (0.0-0.1) K/uL Nucleated RBC % /100WBC Nucleated RBCs # K/uL Sodium (136-146) mmol/L Potassium (3.5-5.1) mmol/L Chloride (98-110) mmol/L Carbon Dioxide (21-31) mmol/L BUN (6.0-23.0) mg/dL Creatinine (0.6-1.5) mg/dL Est Cr Clr Drug Dosing mL/min Estimated GFR (MDRD) ml/min Glucose (60-110) mg/dL POC Glucose 119 H 110 (60-110) mg/dL Calcium (8.8-10.8) mg/dL FRANTZ Results - Last 24 hrs: Microbiology 12/14/16 21:45 Aerobic Blood Culture - Preliminary Blood - Arm, Left NO GROWTH AFTER 2 DAYS Anaerobic Blood Culture - Final Med Orders - Current: Current Medications Discontinued Medications Calcium Carbonate/Glycine (Tums) 1,000 mg PO DAILY [facility] Last Admin: 12/16/16 08:54 Dose: 1,000 mg Calcium Carbonate/Glycine (Tums) 1,000 mg PO ONETIME ONE Stop: 12/17/16 08:04 Last Admin: 12/17/16 08:54 Dose: 1,000 mg Hydrochlorothiazide (Hydrochlorothiazide) 12.5 mg PO DAILY [facility] Hydrochlorothiazide (Hydrochlorothiazide) 12.5 mg PO DAILY [facility] Last Admin: 12/17/16 08:54 Dose: 12.5 mg Hydromorphone HCl (Dilaudid) 0.25 mg IVPUSH Q2H PRN PRN Reason: Pain (severe 7-10) Hydromorphone HCl (Dilaudid) 0.25 mg IVPUSH Q2H PRN PRN Reason: Pain (severe 7-10) Last Admin: 12/15/16 00:13 Dose: 0.25 mg Pantoprazole Sodium 40 mg/ (Sodium Chloride) 10 mls @ 300 mls/hr IVPUSH NOW ONE Stop: 12/14/16 21:07 Last Admin: 12/14/16 21:53 Dose: 300 mls/hr Sodium Chloride (Normal Saline) 1,000 mls @ 75 mls/hr IV ASDIRECTED [facility] Last Admin: 12/14/16 23:34 Dose: 75 mls/hr Pantoprazole Sodium 80 mg/ (Sodium Chloride) 100 mls @ 10 mls/hr IV NOW STA Stop: 12/15/16 07:07 Last Admin: 12/14/16 23:15 Dose: 10 mls/hr Pantoprazole Sodium 40 mg/ (Sodium Chloride) 10 mls @ 300 mls/hr IVPUSH DAILY [facility] Last Admin: 12/15/16 09:09 Dose: 300 mls/hr Sodium Chloride (Normal Saline) 1,000 mls @ 150 mls/hr IV ASDIRECTED [facility] Last Admin: 12/17/16 03:36 Dose: 150 mls/hr Sodium Chloride (Normal Saline) 1,000 mls @ 999 mls/hr IV .Bolus ONE Stop: 12/15/16 08:58 Last Admin: 12/15/16 08:02 Dose: 999 mls/hr Pantoprazole Sodium 80 mg/ (Sodium Chloride) 100 mls @ 10 mls/hr IV Q10H [facility] Last Admin: 12/17/16 11:40 Dose: Not Given Magnesium Sulfate 2 gm/ Premix 50 mls @ 50 mls/hr IV ONETIME ONE Stop: 12/16/16 09:05 Last Admin: 12/16/16 09:16 Dose: 50 mls/hr Insulin Aspart (Novolog) 10 unit SUBCUT Q6H [facility] Last Admin: 12/15/16 06:14 Dose: 10 units Insulin Aspart (Novolog) 15 unit SUBCUT Q6H [facility] Last Admin: 12/15/16 09:09 Dose: Not Given Insulin Aspart (Novolog) 0 unit SUBCUT Q4H [facility] PRN Reason: Protocol Last Admin: 12/15/16 09:21 Dose: 6 units Insulin Aspart (Novolog) 0 unit SUBCUT Q4H [facility] PRN Reason: Protocol Last Admin: 12/16/16 09:11 Dose: Not Given Insulin Aspart (Novolog) 0 unit SUBCUT TIDAC [facility] PRN Reason: Protocol Last Admin: 12/17/16 11:41 Dose: Not Given Insulin Glargine (Lantus Solostar) 40 units SUBCUT BEDTIME [facility] Last Admin: 12/16/16 20:56 Dose: 40 units Lisinopril (Prinivil) 1 mg PO DAILY [facility] Last Admin: 12/15/16 14:51 Dose: Not Given Lisinopril (Prinivil) 10 mg PO DAILY [facility] Lisinopril (Prinivil) 10 mg PO DAILY [facility] Lisinopril (Prinivil) 10 mg PO DAILY [facility] Last Admin: 12/17/16 06:01 Dose: 10 mg Lisinopril (Prinivil) 20 mg PO DAILY [facility] Last Admin: 12/17/16 08:54 Dose: 20 mg Lorazepam (Ativan) 1 mg IM Q6H PRN PRN Reason: Agitation Last Admin: 12/15/16 00:05 Dose: 1 mg Metoclopramide HCl (Reglan) 10 mg IVPUSH ONETIME ONE Stop: 12/14/16 21:07 Last Admin: 12/14/16 22:17 Dose: Not Given Miscellaneous Information (Remove Patch) 1 ea TRDERM 12/15/16@2200 [facility] Stop: 12/15/16 22:01 Last Admin: 12/15/16 22:20 Dose: 1 ea Nicotine (Habitrol) 7 mg TRDERM DAILY [facility] Last Admin: 12/15/16 10:22 Dose: Not Given Nicotine (Habitrol) 7 mg TRDERM Q24H PRN PRN Reason: smoking Last Admin: 12/17/16 05:22 Dose: 7 mg Ondansetron HCl (Zofran) 8 mg IVPUSH ONETIME ONE Stop: 12/14/16 20:50 Last Admin: 12/14/16 20:53 Dose: 8 mg Ondansetron HCl (Zofran) 4 mg IVPUSH Q4H PRN PRN Reason: Nausea/Vomiting Last Admin: 12/15/16 18:03 Dose: 4 mg Phenol/Menthol (Chloraseptic Throat [place]) 0 ml MUCMEM Q2H PRN PRN Reason: Sore Throat Last Admin: 12/16/16 12:03 Dose: 1 spray Potassium Chloride (Klor-Con M20) 40 meq PO ONETIME ONE Stop: 12/16/16 08:07 Last Admin: 12/16/16 08:37 Dose: 40 meq Potassium Chloride (Klor-Con M20) 40 meq PO ONETIME ONE Stop: 12/17/16 08:02 Last Admin: 12/17/16 08:57 Dose: 40 meq Promethazine HCl (Phenergan) 25 mg IM Q6H PRN PRN Reason: Nausea Last Admin: 12/15/16 15:53 Dose: 25 mg *Q Meaningful Use (DIS) - VTE *Q VTE Criteria *Q: - Stroke *Q Stroke Criteria *Q: - AMI *Q AMI Criteria *Q:
[2016-12-17] MEDS: Pantoprazole 80 MG in Sodium Chloride 0.9% 100 ML IV SCH (11:40)
== END 2016-12-17 11:20 | disposition home or self-care (01) | DRG 241 ==
LOC: MW.ED 20:46 → MW.ICU 21:34 → MW.MS 12-15 21:18
PROVIDERS: ADMIT Internal Medicine; ATTEND Internal Medicine
DX: K29.71 Gastritis, unspecified, with bleeding (principal); E10.10 Type 1 diabetes mellitus with ketoacidosis without coma; R79.89 Other specified abnormal findings of blood chemistry; R11.2 Nausea with vomiting, unspecified; I10 Essential (primary) hypertension; N28.9 Disorder of kidney and ureter, unspecified; Z79.4 Long term (current) use of insulin; Z88.0 Allergy status to penicillin; Z79.899 Other long term (current) drug therapy; Z91.14 Patient's other noncompliance with medication regimen
CPT/HCPCS: 36415; 36600; 71010; 71010-26; 80048; 80053; 80305; 81001; 82150; 82803; 82962; 83036; 83605; 83690; 83735; 84100; 84484; 85014; 85018; 85025; 85610; 86677; 86850; 86900; 86901; 87040; 87804; 93005; 96361; 96374; 96375; 99284; 99285-25; A9270-GY; C9113; G0480; J1170; J1815-GY; J2060; J2405; J2550; J3475; J7030; J7040

== ENCOUNTER → 2017-01-12 | Outpatient (CLI) | payer BC | LOC: MW.CHIM 14:37 | PROVIDERS: ATTEND Internal Medicine | DX: E10.9 Type 1 diabetes mellitus without complications (principal); E87.5 Hyperkalemia; I10 Essential (primary) hypertension | CPT/HCPCS: 36415; 83036; 84439; 84443 ==

== ENCOUNTER 2017-01-29 06:26 | Day surgery (SDC) | payer BC ==
[~2017-01-29 06:26] MED LIST: Lactated Ringers 1,000 ML IV SCH; Sodium Chloride 0.9% 10 ML Syringe FLUSH PRN; Sodium Chloride 0.9% 2.5 ML Syringe FLUSH PRN
--- NOTE | 2017-01-29 07:11 | PCM.PREANE ---
Preanesthetic Assessment - Anesthesia/Transfusion/Family Hx Anesthesia History: Prior Anesthesia Without Reaction Family History of Anesthesia Reaction: No Transfusion History: No Prior Transfusion(s) Intubation History: Unknown - Review of Systems General: No Symptoms Pulmonary: No Symptoms Cardiovascular: No Symptoms Gastrointestinal: Nausea, Vomiting Neurological: No Symptoms Other: Reports: None - Physical Assessment O2 Sat by Pulse Oximetry: 95 Respiratory Rate: 16 Vital Signs: Last Vital Signs Temp 36.7 C 01/29/17 06:43 Pulse 100 01/29/17 06:43 Resp 16 01/29/17 06:43 BP 181/106 H 01/29/17 06:43 Pulse Ox 95 01/29/17 06:43 Height: 1.75 m Weight: 85.729 kg ASA Class: 3 Mental Status: Alert & Oriented x3 Airway Class: Mallampati = 2 Dentition: Reports: Normal Dentition Thyro-Mental Finger Breadths: 3 Mouth Opening Finger Breadths: 3 ROM/Head Extension: Full Lungs: Clear to auscultation, Normal respiratory effort Cardiovascular: Regular Rate, Regular Rhythm - Allergies Allergies/Adverse Reactions: Allergies Allergy/AdvReac Type Severity Reaction Status Date / Time Penicillins Allergy Unknown Anaphylactic Verified 08/19/16 08:37 Shock iodine Allergy Anaphylactic Verified 08/19/16 08:37 Shock gluten Allergy Muscle Uncoded 08/19/16 08:37 Aches - Blood Blood Available: No - Anesthesia Plan Pre-Op Medication Ordered: None - Acknowledgements Anesthesia Type Planned: MAC Pt an Appropriate Candidate for the Planned Anesthesia: Yes Alternatives and Risks of Anesthesia Discussed w Pt/Guardian: Yes Pt/Guardian Understands and Agrees with Anesthesia Plan: Yes PreAnesthesia Questionnaire - Past Health History Medical/Surgical History: Denies Medical/Surgical History HEENT History: Reports: None Cardiovascular History: Reports: Hypertension Respiratory History: Reports: None Gastrointestinal History: Reports: Gastritis, GERD, Other (See Below) Other Gastrointestinal History: h/o gastric ulcers, h/o hiatal hernia Genitourinary History: Reports: Chronic Renal Insuffiency Musculoskeletal History: Reports: None Neurological History: Reports: None Psychiatric History: Reports: Anxiety Endocrine/Metabolic History: Reports: Diabetes, Type I (brittle diabetic), Other (See Below) (h/o hyperkalemia, h/o DKA couple of months ago after food poisining) Hematologic History: Reports: None Immunologic History: Reports: None Oncologic (Cancer) History: Reports: None Dermatologic History: Reports: None, Other (See Below) (umbilical hernia) - Infectious Disease History Infectious Disease History: Reports: None - Past Surgical History Head Surgeries/Procedures: Reports: None HEENT Surgical History: Reports: None Cardiovascular Surgical History: Reports: None Respiratory Surgical History: Reports: None GI Surgical History: Reports: EGD (about a year ago) Male Surgical History: Reports: None Endocrine Surgical History: Reports: None Dermatological Surgical History: Reports: None - SUBSTANCE USE Smoking Status *Q: Current Every Day Smoker Tobacco Use Within Last Twelve Months: Cigarettes Second Hand Smoke Exposure: No Days Per Week of Alcohol Use: 0 Number of Drinks Per Day: 0 Total Drinks Per Week: 0 Recreational Drug Use History: No Recreational Drug Type: Reports: Marijuana/Hashish - HOME MEDS Home Medications: Home Meds Insulin Lispro [Humalog Kwikpen U-100] 1 injection SUBCNJ ASDIRECTED 04/03/14 [ History] Omeprazole [Prilosec] 40 mg PO DAILY #30 capsule. 09/27/14 [Rx] Insulin Glargine,Hum.Rec.Anlog [Toujeo Solostar] 60 units SUBCUT DAILY 01/26/17 [History] Ramipril 1.25 mg PO BEDTIME 01/26/17 [History] Sodium Polystyrene Sulfonate [Kayexalate] 60 ml PO BID 01/26/17 [History] - CURRENT (IN HOUSE) MEDS Current Meds: Current Medications Lactated Ringer's (Ringers, Lactated) 1,000 mls @ 125 mls/hr IV ASDIRECTED MICHAEL Sodium Chloride (Saline Flush) 10 ml FLUSH ASDIRECTED PRN PRN Reason: Keep Vein Open Sodium Chloride (Saline Flush) 2.5 ml FLUSH ASDIRECTED PRN PRN Reason: Keep Vein Open
[2017-01-29] MEDS ORDERED: Labetalol 100 MG/20 ML MDV IVPUSH ONE (07:26)
[2017-01-29] MEDS ORDERED: Labetalol 100 MG/20 ML MDV ONE (07:29)
[2017-01-29] MEDS ORDERED: Propofol 200 MG/20 ML SDV ONE (07:31)
[2017-01-29] MEDS ORDERED: Lidocaine 2% 5 ML SDV ONE (07:31)
--- NOTE | 2017-01-29 08:22 | PCM.OPNOTE ---
- General Post-Op/Procedure Note Date of Surgery/Procedure: 01/29/17 Operative Procedure(s): Diagnostic EGD Findings: Stomach half full of undigested food. Gastric mucosa appears to have mild inflammation. There is food stuff along the sung of the distal esophagus. Pre Op Diagnosis: GI bleed Post-Op Diagnosis: Gastroparesis, GERD Primary Surgeon: Liliana West Condition: Good
--- NOTE | 2017-01-29 08:52 | PCM.POSTAN ---
POST ANESTHESIA ASSESSMENT - MENTAL STATUS Mental Status: alert, oriented - RESPIRATORY Respiratory Status: respiratory rate WNL, airway patent, O2 saturation stable - CARDIOVASCULAR CV Status: pulse rate WNL, blood pressure stable - GASTROINTESTINAL GI Status: no symptoms - POST OP HYDRATION Hydration Status: adequate & stable - OBSERVATIONS Free Text/Narrative:: no anesthesia problems
--- NOTE | 2017-01-29 08:53 | PCM48HPAN ---
Post Anesthesia Note - EVALUATION WITHIN 48HRS OF ANESTHETIC Vital Signs in Normal Range: Yes Patient Participated in Evaluation: Yes Respiratory Function Stable: Yes Airway Patent: Yes Cardiovascular Function Stable: Yes Hydration Status Stable: Yes Pain Control Satisfactory: Yes Nausea and Vomiting Control Satisfactory: Yes Mental Status Recovered: Yes - COMMENTS/OBSERVATIONS Free Text/Narrative:: no anesthesia problems
[2017-01-29 09:47] VITALS: BP 152/84
--- NOTE | 2017-01-29 21:50 | OR ---
SURGEON: ODALYS PARTIDA MD DATE OF PROCEDURE: 01/29/2017 PREOPERATIVE DIAGNOSIS: Gastrointestinal bleed. POSTOPERATIVE DIAGNOSIS: Gastroparesis, gastroesophageal reflux disease. PROCEDURE PERFORMED: Diagnostic EGD with biopsy. ANESTHESIA: MAC. INSTRUMENT USED: Olympus endoscope. EXTENT OF EXAM: To the second portion of duodenum. PREPARATION: Poor. LIMITATIONS: Stomach half full with partially digested food. INDICATIONS FOR EXAMINATION: The patient is a 31-year-old male with type 1 diabetes that is poorly controlled overall. He developed nausea and vomiting after eating [place] food several weeks ago. This put him into DKA and he was admitted to the hospitalist team. Prior to arrival to the hospital, he complained of bloody and coffee-ground like emesis. On admission to the hospital, hemoglobin was stable as well as his vitals and he had no further episodes of emesis. He was started on Protonix and sent to me for further workup. He has been having dysphagia intermittently with solid food but never with liquids. He has had no change in his bowel habits. Given his suspicious symptoms, we decided to perform a diagnostic EGD. I explained the procedure to the patient including the expected perioperative course. We discussed the risks, including bleeding, infection, or damage to surrounding structures. The patient verbalized understanding and wishes to proceed. PROCEDURE IN DETAIL: The patient was brought to the endoscopy suite and placed in the beach chair position. A time-out was completed verifying the patient's name, age, date of , allergies, and procedure to be performed. A bite block was placed in the patient's mouth and monitored anesthesia care was induced. Continuous oxygen was provided via nasal cannula throughout the procedure. Once adequate sedation was achieved, I placed the endoscope over the patient's tongue down the patient's esophagus and into the stomach. Upon entering the stomach, I noted a large amount of the partially digested food stuff. The half of the stomach was completely full of undigested food. I insufflated the stomach and was able to pass my scope under direct visualization through the pylorus into the second portion of the duodenum. A photograph was taken there. The duodenum and its mucosa all appeared normal. The scope was brought back into the stomach and a photograph taken of the pylorus as well as the stomach to show the amount of undigested food in it. I retroflexed the scope. I looked back at the esophageal hiatus which appeared normal. Biopsies were taken of the gastric antrum, body, and fundus and sent for pathology testing. The scope was then brought into the distal esophagus. I did not note a large hiatal hernia; however, I did see undigested food residue along the distal aspect of the esophagus indicating that the patient is having reflux symptoms. The scope was then brought into the upper esophagus which appeared normal. The distal esophagus did not appear inflamed or show any changes that would suggest metaplasia. The scope was then removed from the patient's mouth and the procedure terminated. The patient was then transferred to the recovery room in stable condition. ENDOSCOPIC DIAGNOSIS: Gastroparesis most likely secondary to diabetes. RECOMMENDATIONS: We will follow up in the clinic with the patient in 2 weeks. I would like to obtain a gastric emptying study before then. The patient will most likely need further workup with a telemarketing agent in the near future. FERNANDO CUEVA /[id number]
== END 2017-01-29 09:40 | disposition home or self-care (01) ==
LOC: MW.SDS 06:26
PROVIDERS: ATTEND Surgery
DX: K29.50 Unspecified chronic gastritis without bleeding (principal); K21.9 Gastro-esophageal reflux disease without esophagitis; K31.84 Gastroparesis; I12.9 Hypertensive chronic kidney disease with stage 1 through stage 4 chronic kidney disease, or unspecified chronic kidney disease; E10.22 Type 1 diabetes mellitus with diabetic chronic kidney disease; E87.5 Hyperkalemia; E10.10 Type 1 diabetes mellitus with ketoacidosis without coma; F17.210 Nicotine dependence, cigarettes, uncomplicated; N18.9 Chronic kidney disease, unspecified; Z88.0 Allergy status to penicillin; Z88.8 Allergy status to other drugs, medicaments and biological substances; Z87.19 Personal history of other diseases of the digestive system; Z98.890 Other specified postprocedural states; Z79.899 Other long term (current) drug therapy
CPT/HCPCS: 00740; 82962; 88305; 88312; J2704

== ENCOUNTER → 2017-02-03 | Outpatient (CLI) | payer BC ==
--- NOTE | 2017-02-03 16:31 | NM ---
EXAMINATION: NM gastric emptying study HISTORY: Gastroparesis COMPARISON: CT dated 11/07/2015 TECHNIQUE: Anterior and posterior images obtained of the abdomen following the ingestion of 1.1 mCi of technetium 99M labeled sulfur colloid within a standard meal. FINDINGS: The gastric emptying curve appears linear. The T1 half is approximately 80 minutes. There is approxi mately 20% emptying at 60 minutes and 40% emptying at 90 minutes. IMPRESSION: No evidence of delayed gastric emptying.
== END ==
LOC: MW.NM 13:04
PROVIDERS: ATTEND Surgery
DX: K31.84 Gastroparesis (principal)
CPT/HCPCS: 78264; A9541

== ENCOUNTER 2017-03-31 23:25 | Inpatient (IN) | payer BC ==
[2017-03-31] MEDS ORDERED: Ondansetron 4 MG/2 ML SDV IVPUSH ONE (23:35)
[2017-03-31] MEDS ORDERED: Sodium Chloride 0.9% 1,000 ML IV ONE (23:35)
[2017-03-31] MEDS ORDERED: Sodium Chloride 0.9% 2.5 ML Syringe FLUSH PRN ×2 (23:35)
[2017-03-31] MEDS ORDERED: Ondansetron 4 MG/2 ML SDV ONE (23:38)
[2017-03-31] MEDS: Sodium Chloride 0.9% 10 ML Syringe FLUSH PRN (23:45)
[2017-03-31] MEDS ORDERED: Insulin Regular, Human 100 Units/ML 10 ML Vial IV SCH (23:45)
[2017-04-01] MEDS: Nitroglycerin 2% Oint 1 GM UD Packet TOP SCH ×3 (00:16→12:16)
--- NOTE | 2017-04-01 00:17 | EDM.PDOC ---
ED HPI GENERAL MEDICAL PROBLEM - General Chief Complaint: Diabetic Complaint Stated Complaint: DIABETIC/DIZZY Time Seen by Provider: 03/31/17 23:45 Source of Information: Reports: Patient, Old Records, RN - History of Present Illness INITIAL COMMENTS - FREE TEXT/NARRATIVE: He presented with complaints of high blood sugar and feeling weak with body aches. He has a headache. Head Pain Score (Numeric/FACES): 7 - Related Data Allergies Allergy/AdvReac Type Severity Reaction Status Date / Time Penicillins Allergy Unknown Anaphylactic Verified 03/31/17 23:44 Shock iodine Allergy Anaphylactic Verified 03/31/17 23:44 Shock gluten Allergy Muscle Uncoded 03/31/17 23:44 Aches Home Meds: Home Meds Insulin Lispro [Humalog Kwikpen U-100] 1 injection SUBCNJ ASDIRECTED 04/03/14 [ History] Omeprazole [Prilosec] 40 mg PO DAILY #30 capsule. 09/27/14 [Rx] Insulin Glargine,Hum.Rec.Anlog [Toupat Solostfrank] 60 units SUBCUT DAILY 01/26/17 [History] Ramipril 1.25 mg PO BEDTIME 01/26/17 [History] Past Medical History - Past Health History Medical/Surgical History: Denies Medical/Surgical History HEENT History: Reports: None Cardiovascular History: Reports: Hypertension Respiratory History: Reports: None Gastrointestinal History: Reports: Gastritis, GERD, Other (See Below) Other Gastrointestinal History: h/o gastric ulcers, h/o hiatal hernia Genitourinary History: Reports: Chronic Renal Insuffiency Musculoskeletal History: Reports: None Neurological History: Reports: None Psychiatric History: Reports: Anxiety Endocrine/Metabolic History: Reports: Diabetes, Type I, Other (See Below) Hematologic History: Reports: None Immunologic History: Reports: None Oncologic (Cancer) History: Reports: None Dermatologic History: Reports: None, Other (See Below) - Infectious Disease History Infectious Disease History: Reports: None Other Infectious Disease History: 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 - Past Surgical History Head Surgeries/Procedures: Reports: None HEENT Surgical History: Reports: None Cardiovascular Surgical History: Reports: None Respiratory Surgical History: Reports: None GI Surgical History: Reports: None Male Surgical History: Reports: None Endocrine Surgical History: Reports: None Dermatological Surgical History: Reports: None Social & Family History - Family History Family Medical History: Noncontributory Cardiac: Reports: High Cholesterol, Hypertension OBGYN: Reports: Neurological: Reports: None - Tobacco Use Smoking Status *Q: Current Every Day Smoker Years of Tobacco use: 10 Packs/Tins Daily: 0.4 Used Tobacco, but Quit: No Month Tobacco Last Used: smokes "acouple" cigarettes per day Second Hand Smoke Exposure: No - Caffeine Use Caffeine Use: Reports: Coffee - Alcohol Use Days Per Week of Alcohol Use: 0 Number of Drinks Per Day: 0 Total Drinks Per Week: 0 - Recreational Drug Use Recreational Drug Use: No Drug Use in Last 12 Months: No Recreational Drug Type: Reports: Marijuana/Hashish Recreational Drug Use Frequency: Socially ED ROS GENERAL - Review of Systems Review Of Systems: See Below Constitutional: Denies: Fever Respiratory: Denies: Shortness of Breath, Cough, Sputum Cardiovascular: Reports: Other (body aches). Denies: Chest Pain GI/Abdominal: Reports: Abdominal Pain, Vomiting : Denies: Dysuria ED EXAM GENERAL NO PERIP PULSE - Physical Exam Exam: See Below Exam Limited By: Other (lethargic but answers questions) General Appearance: Lethargic Throat/Mouth: Other (slightly dry oral mucosa) Head: Atraumatic Neck: Supple Respiratory/Chest: No Respiratory Distress, Lungs Clear Cardiovascular: Normal Peripheral Pulses, Regular Rate, Rhythm, No Murmur GI/Abdominal: Soft, Non-Tender Extremities: Other (normal capillary refill in toes). No: Pedal Edema Psychiatric: Normal Mood Comments: EKG: nsr: Q wave V2 Course - Vital Signs Last Recorded V/S: Last Vital Signs Temp 97.3 F 04/01/17 02:08 Pulse 98 04/01/17 02:08 Resp 18 04/01/17 02:08 BP 166/94 H 04/01/17 02:08 Pulse Ox 98 04/01/17 02:08 - Orders/Labs/Meds Orders: Active Orders 24 hr Category Date Time Status Blood Glucose Check, Bedside [RC] ONETIME Care 03/31/17 23:35 Active EKG Documentation Completion [RC] STAT Care 03/31/17 23:55 Active Abdomen Pelvis wo Cont [CT] Stat Exams 04/01/17 00:55 Taken Chest 1V Frontal [CR] Stat Exams 03/31/17 23:36 Taken Insulin Regular, Human [NovoLIN R] Med 03/31/17 23:45 Active 10 unit IV ASDIRECTED Nitroglycerin [Nitro-Bid 2%] Med 04/01/17 00:15 Active 1 gm TOP Q6H Sodium Chloride 0.9% [Saline Flush] Med 03/31/17 23:35 Active 10 ml FLUSH ASDIRECTED PRN Sodium Chloride 0.9% [Saline Flush] Med 03/31/17 23:35 Active 2.5 ml FLUSH ASDIRECTED PRN Saline Lock Insert [OM.PC] Stat Oth 03/31/17 23:35 Ordered Medication Orders Insulin Human Regular (Novolin R) 10 unit IV ASDIRECTED MICHAEL PRN Reason: Protocol Last Admin: 03/31/17 23:45 Dose: 10 units Nitroglycerin (Nitro-Bid 2%) 1 gm TOP Q6H [facility] Last Admin: 04/01/17 00:16 Dose: 1 gm Sodium Chloride (Saline Flush) 10 ml FLUSH ASDIRECTED PRN PRN Reason: Keep Vein Open Last Admin: 04/01/17 00:28 Dose: 10 ml Admin: 03/31/17 23:45 Dose: 10 ml Sodium Chloride (Saline Flush) 2.5 ml FLUSH ASDIRECTED PRN PRN Reason: Keep Vein Open Last Admin: 03/31/17 23:45 Dose: 2.5 ml Labs: Laboratory Tests 03/31/17 03/31/17 03/31/17 Range/Units 23:40 23:40 23:40 WBC 8.42 (4.0-11.0) K/uL RBC 6.02 H (4.50-5.90) M/uL Hgb 13.3 (13.0-17.0) g/dL Hct 40.4 (38.0-50.0) % MCV 67.1 L (80.0-98.0) fL MCH 22.1 L (27.0-32.0) pg MCHC 32.9 (31.0-37.0) g/dL RDW Std Deviation 37.2 (28.0-62.0) fl RDW Coeff of Dania 15 (11.0-15.0) % Plt Count 326 (150-400) K/uL MPV 10.70 (7.40-12.00) fL Neut % (Auto) 73.0 (48.0-80.0) % Lymph % (Auto) 21.7 (16.0-40.0) % Garvin % (Auto) 4.5 (0.0-15.0) % Eos % (Auto) 0.6 (0.0-7.0) % Baso % (Auto) 0.2 (0.0-1.5) % Neut # (Auto) 6.1 H (1.4-5.7) K/uL Lymph # (Auto) 1.8 (0.6-2.4) K/uL Garvin # (Auto) 0.4 (0.0-0.8) K/uL Eos # (Auto) 0.1 (0.0-0.7) K/uL Baso # (Auto) 0.0 (0.0-0.1) K/uL Nucleated RBC % 0.0 /100WBC Nucleated RBCs # 0 K/uL ABG pH (7.35-7.45) ABG pCO2 (35-45) mmHG ABG pO2 (75-100) mmHG ABG HCO3 (22-26) mEq/L ABG Total CO2 ABG Base Excess (-2.0-2.0) Sodium 137 (136-146) mmol/L Potassium 4.6 (3.5-5.1) mmol/L Chloride 99 (98-110) mmol/L Carbon Dioxide 24 (21-31) mmol/L BUN 25 H (6.0-23.0) mg/dL Creatinine 1.6 H (0.6-1.5) mg/dL Est Cr Clr Drug Dosing 65.31 mL/min Estimated GFR (MDRD) > 60.0 ml/min Glucose 589 H* (60-110) mg/dL Calcium 9.4 (8.8-10.8) mg/dL Magnesium (1.5-2.3) mEq/L Total Bilirubin 0.3 (0.1-1.5) mg/dL AST 38 (5-40) IU/L ALT 38 (8-54) IU/L Alkaline Phosphatase 113 (40-150) Total Protein 7.4 (6.0-8.0) g/dL Albumin 3.6 (3.5-5.0) g/dL Globulin 3.8 H (2.0-3.5) g/dL Albumin/Globulin Ratio 1.0 L (1.3-2.8) Urine Color Urine Appearance Urine pH (5.0-8.0) Ur Specific Runge (1.001-1.035) Urine Protein (NEGATIVE) mg/dL Urine Glucose (UA) (NEGATIVE) mg/dL Urine Ketones (NEGATIVE) mg/dL Urine Occult Blood (NEGATIVE) Urine Nitrite (NEGATIVE) Urine Bilirubin (NEGATIVE) Urine Urobilinogen (<2.0) EU/dL Ur Leukocyte Esterase (NEGATIVE) Urine RBC (0-2/HPF) Urine WBC (0-5/HPF) Ur Epithelial Cells (NONE-FEW) Urine Bacteria (NEGATIVE) Ketones NEGATIVE (NEG) 03/31/17 04/01/17 04/01/17 Range/Units 23:40 00:10 00:15 WBC (4.0-11.0) K/uL RBC (4.50-5.90) M/uL Hgb (13.0-17.0) g/dL Hct (38.0-50.0) % MCV (80.0-98.0) fL MCH (27.0-32.0) pg MCHC (31.0-37.0) g/dL RDW Std Deviation (28.0-62.0) fl RDW Coeff of Dania (11.0-15.0) % Plt Count (150-400) K/uL MPV (7.40-12.00) fL Neut % (Auto) (48.0-80.0) % Lymph % (Auto) (16.0-40.0) % Garvin % (Auto) (0.0-15.0) % Eos % (Auto) (0.0-7.0) % Baso % (Auto) (0.0-1.5) % Neut # (Auto) (1.4-5.7) K/uL Lymph # (Auto) (0.6-2.4) K/uL Garvin # (Auto) (0.0-0.8) K/uL Eos # (Auto) (0.0-0.7) K/uL Baso # (Auto) (0.0-0.1) K/uL Nucleated RBC % /100WBC Nucleated RBCs # K/uL ABG pH 7.369 (7.35-7.45) ABG pCO2 46 H (35-45) mmHG ABG pO2 58 L (75-100) mmHG ABG HCO3 27 H (22-26) mEq/L ABG Total CO2 24.3 ABG Base Excess 1.2 (-2.0-2.0) Sodium (136-146) mmol/L Potassium (3.5-5.1) mmol/L Chloride (98-110) mmol/L Carbon Dioxide (21-31) mmol/L BUN (6.0-23.0) mg/dL Creatinine (0.6-1.5) mg/dL Est Cr Clr Drug Dosing mL/min Estimated GFR (MDRD) ml/min Glucose (60-110) mg/dL Calcium (8.8-10.8) mg/dL Magnesium 1.8 (1.5-2.3) mEq/L Total Bilirubin (0.1-1.5) mg/dL AST (5-40) IU/L ALT (8-54) IU/L Alkaline Phosphatase (40-150) Total Protein (6.0-8.0) g/dL Albumin (3.5-5.0) g/dL Globulin (2.0-3.5) g/dL Albumin/Globulin Ratio (1.3-2.8) Urine Color YELLOW Urine Appearance CLEAR Urine pH 7.0 (5.0-8.0) Ur Specific Runge 1.015 (1.001-1.035) Urine Protein 100 (NEGATIVE) mg/dL Urine Glucose (UA) >=1000 (NEGATIVE) mg/dL Urine Ketones TRACE H (NEGATIVE) mg/dL Urine Occult Blood MODERATE (NEGATIVE) Urine Nitrite NEGATIVE (NEGATIVE) Urine Bilirubin NEGATIVE (NEGATIVE) Urine Urobilinogen 0.2 (<2.0) EU/dL Ur Leukocyte Esterase NEGATIVE (NEGATIVE) Urine RBC 0-2 (0-2/HPF) Urine WBC NONE SEEN (0-5/HPF) Ur Epithelial Cells RARE (NONE-FEW) Urine Bacteria RARE (NEGATIVE) Ketones (NEG) Meds: Medications Generic Name Dose Route Start Last Admin Trade Name Freq PRN Reason Stop Dose Admin Insulin Human Regular 10 unit 03/31/17 23:45 03/31/17 23:45 Novolin R IV 10 units ASDIRECTED MICHAEL Administration Protocol Nitroglycerin 1 gm 04/01/17 00:15 04/01/17 00:16 Nitro-Bid 2% TOP 1 gm Q6H MICHAEL Administration Sodium Chloride 10 ml 03/31/17 23:35 04/01/17 00:28 Saline Flush FLUSH 10 ml ASDIRECTED PRN Administration Keep Vein Open Sodium Chloride 2.5 ml 03/31/17 23:35 03/31/17 23:45 Saline Flush FLUSH 2.5 ml ASDIRECTED PRN Administration Keep Vein Open Discontinued Medications Generic Name Dose Route Start Last Admin Trade Name Freq PRN Reason Stop Dose Admin Sodium Chloride 1,000 mls @ 999 mls/hr 03/31/17 23:35 03/31/17 23:46 Normal Saline IV 04/01/17 00:35 999 mls/hr .Bolus ONE Administration Insulin Human Regular 100 unit 100 mls @ 8 mls/hr 04/01/17 00:15 04/01/17 00: 21 / Sodium Chloride IV 8 unit/hr TITRATE MICHAEL 8 mls/hr Protocol Administration 8 UNIT/HR Ondansetron HCl 4 mg 03/31/17 23:35 03/31/17 23:45 Zofran IVPUSH 03/31/17 23:36 4 mg ONETIME ONE Administration Ondansetron HCl Confirm 03/31/17 23:38 03/31/17 23:45 Zofran Administered 03/31/17 23:39 Not Given Dose 4 mg .ROUTE .STK-MED ONE Ondansetron HCl 4 mg 04/01/17 00:24 04/01/17 00:27 Zofran IVPUSH 04/01/17 00:25 4 mg ONETIME ONE Administration Pantoprazole Sodium 80 mg 04/01/17 01:44 04/01/17 01:58 Protonix Iv IVPUSH 04/01/17 01:45 80 mg .BOLUS ONE Administration Sodium Chloride 2.5 ml 03/31/17 23:35 Saline Flush FLUSH ASDIRECTED PRN Keep Vein Open - Re-Assessments/Exams Free Text/Narrative Re-Assessment/Exam: 04/01/17 02:[address] findings his blood sugar is improved. I advised that he may have stomach irritation; received protonix will admit may stop insulin drip for now . Departure - Departure Time of Disposition: 02:11 Disposition: Admitted As Inpatient 67 Clinical Impression: Abdominal pain, Diabetes mellitus type I, Hyperglycemia - Discharge Information Referrals: PCP,None [Primary Care Provider] - Forms: ED Department Discharge - My Orders Last 24 Hours: My Active Orders 03/31/17 23:35 Blood Glucose Check, Bedside [RC] ONETIME Sodium Chloride 0.9% [Saline Flush] 10 ml FLUSH ASDIRECTED PRN Sodium Chloride 0.9% [Saline Flush] 2.5 ml FLUSH ASDIRECTED PRN Saline Lock Insert [OM.PC] Stat 03/31/17 23:36 Chest 1V Frontal [CR] Stat 03/31/17 23:45 Insulin Regular, Human [NovoLIN R] 10 unit IV ASDIRECTED 03/31/17 23:55 EKG Documentation Completion [RC] STAT 04/01/17 00:15 Nitroglycerin [Nitro-Bid 2%] 1 gm TOP Q6H 04/01/17 00:55 Abdomen Pelvis wo Cont [CT] Stat - Assessment/Plan Last 24 Hours: My Active Orders 03/31/17 23:35 Blood Glucose Check, Bedside [RC] ONETIME Sodium Chloride 0.9% [Saline Flush] 10 ml FLUSH ASDIRECTED PRN Sodium Chloride 0.9% [Saline Flush] 2.5 ml FLUSH ASDIRECTED PRN Saline Lock Insert [OM.PC] Stat 03/31/17 23:36 Chest 1V Frontal [CR] Stat 03/31/17 23:45 Insulin Regular, Human [NovoLIN R] 10 unit IV ASDIRECTED 03/31/17 23:55 EKG Documentation Completion [RC] STAT 04/01/17 00:15 Nitroglycerin [Nitro-Bid 2%] 1 gm TOP Q6H 04/01/17 00:55 Abdomen Pelvis wo Cont [CT] Stat
[2017-04-01] MEDS ORDERED: Ondansetron 4 MG/2 ML SDV IVPUSH ONE (00:24)
[2017-04-01 00:26] LABS: CHLORIDE,CL 99 mmol/L (98-110); SODIUM,NA 137 mmol/L (136-146)
[2017-04-01] MEDS: Sodium Chloride 0.9% 10 ML Syringe FLUSH PRN (00:28)
[2017-04-01] MEDS ORDERED: Pantoprazole 40 MG Vial IVPUSH ONE (01:44)
[2017-04-01] MEDS ORDERED: Temazepam 15 MG Cap PO PRN (02:11)
[2017-04-01] MEDS ORDERED: Nitroglycerin 2% Oint 1 GM UD Packet TOP PRN (02:11)
[2017-04-01] MEDS ORDERED: Bisacodyl 5 MG Tab PO PRN (02:11)
[2017-04-01] MEDS ORDERED: Ondansetron 4 MG/2 ML SDV IVPUSH PRN (02:11)
[2017-04-01] MEDS ORDERED: Acetaminophen 325 MG Tab PO PRN (02:11)
[2017-04-01] MEDS ORDERED: LORazepam 2 MG/ML MDV IM PRN (02:11)
[2017-04-01] MEDS ORDERED: HYDROmorphone 2 MG/ML Syringe IVPUSH PRN (02:11)
[2017-04-01] MEDS ORDERED: Sodium Chloride 0.9% 1,000 ML IV SCH (02:15)
[2017-04-01] MEDS: Insulin Aspart 100 Units/ML 3 ML Pen SUBCUT SCH ×4 (04:07→10:07)
[2017-04-01 05:48] LABS: CHLORIDE,CL 107 mmol/L (98-110); SODIUM,NA 142 mmol/L (136-146)
[2017-04-01] MEDS ORDERED: Promethazine 25 MG/ML SDV IM PRN (07:07)
[2017-04-01] MEDS: Pantoprazole 80 MG in Sodium Chloride 0.9% 100 ML IV SCH ×2 (08:15→08:16)
[2017-04-01] MEDS ORDERED: Pantoprazole 40 MG in Sodium Chloride 0.9% 10 ML IVPUSH SCH (09:00)
[2017-04-01 09:57] VITALS: BP 114/60
--- NOTE | 2017-04-01 10:05 | PCM.SN ---
- Free Text/Narrative Note: Attempted to see pt, pt is tired; will return
--- NOTE | 2017-04-01 10:42 | PCM.HP ---
H&P History of Present Illness - General Date of Service: 04/01/17 Admit Problem/Dx: Admission Diagnosis/Problem Admission Diagnosis/Problem Abdominal pain History Limitations: Reports: Other - History of Present Illness Initial Comments - Free Text/Narative: He is refusing to answer questions despite multiple visits this morning. 31 yo male with type 1 DM poorly controlled admitted for elevated blood sugars ( 589) and abdominal pain. Per records from ED, he was having hemetaemesis along with abdominal pain. Abdominal CT: fecal retention, diffuse bladder wall thickening otherwise unremarkable. He is not taking his long acting insulin tojeau. He only takes short acting novolog on prn basis. He was given regular insulin along with fluids. He was started on IV protonix. surgery was consulted for possible GIB. Head Pain Score (Numeric/FACES): 7 Abdomen Pain Score (Numeric/FACES): 7 - Related Data Allergies/Adverse Reactions: Allergies Allergy/AdvReac Type Severity Reaction Status Date / Time Penicillins Allergy Unknown Anaphylactic Verified 03/31/17 23:44 Shock iodine Allergy Anaphylactic Verified 03/31/17 23:44 Shock gluten Allergy Muscle Uncoded 03/31/17 23:44 Aches Home Medications: Home Meds Insulin Lispro [Humalog Kwikpen U-100] 1 injection SUBCNJ ASDIRECTED 04/03/14 [ History] Insulin Glargine,Hum.Rec.Anlog [Toujeo Solostar] 60 units SUBCUT DAILY 01/26/17 [History] Ramipril 1.25 mg PO BEDTIME 01/26/17 [History] Insulin Aspart [NovoLOG] 2 unit SUBCUT TIDAC #1 pen 04/01/17 [Rx] Pantoprazole Sodium [Protonix] 40 mg PO DAILY #30 tablet. 04/01/17 [Rx] Past Medical History - Past Health History Medical/Surgical History: Denies Medical/Surgical History HEENT History: Reports: None Cardiovascular History: Reports: Hypertension Respiratory History: Reports: None Gastrointestinal History: Reports: Gastritis, GERD, Other (See Below) Other Gastrointestinal History: h/o gastric ulcers, h/o hiatal hernia Genitourinary History: Reports: Chronic Renal Insuffiency Musculoskeletal History: Reports: None Neurological History: Reports: None Psychiatric History: Reports: Anxiety Endocrine/Metabolic History: Reports: Diabetes, Type I, Other (See Below) Hematologic History: Reports: None Immunologic History: Reports: None Oncologic (Cancer) History: Reports: None Dermatologic History: Reports: None, Other (See Below) - Infectious Disease History Infectious Disease History: Reports: None Other Infectious Disease History: 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 - Past Surgical History Head Surgeries/Procedures: Reports: None HEENT Surgical History: Reports: None Cardiovascular Surgical History: Reports: None Respiratory Surgical History: Reports: None GI Surgical History: Reports: EGD Male Surgical History: Reports: None Endocrine Surgical History: Reports: None Dermatological Surgical History: Reports: None Social & Family History - Family History Family Medical History: Noncontributory Cardiac: Reports: High Cholesterol, Hypertension OBGYN: Reports: Neurological: Reports: None - Tobacco Use Smoking Status *Q: Current Every Day Smoker Years of Tobacco use: 10 Packs/Tins Daily: 0.5 Used Tobacco, but Quit: No Month Tobacco Last Used: smokes "acouple" cigarettes per day Second Hand Smoke Exposure: No - Caffeine Use Caffeine Use: Reports: Coffee - Alcohol Use Days Per Week of Alcohol Use: 0 Number of Drinks Per Day: 0 Total Drinks Per Week: 0 - Recreational Drug Use Recreational Drug Use: No Drug Use in Last 12 Months: No Recreational Drug Type: Reports: Marijuana/Hashish Recreational Drug Use Frequency: Socially H&P Review of Systems - Review of Systems: Review Of Systems: Unable To Obtain Free Text/Narrative: he is refusing to answer any questions. He said no to everything Exam - Exam Exam: See Below - Vital Signs Vital Signs: Last Vital Signs Temp 98.2 F 04/01/17 08:00 Pulse 91 04/01/17 08:00 Resp 18 04/01/17 08:00 BP 114/60 04/01/17 08:00 Pulse Ox 94 L 04/01/17 08:00 Weight: 79.968 kg - Exam General: Alert HEENT: Conjunctiva Clear, EOMI Neck: Supple, Trachea Midline Lungs: Clear to Auscultation, Normal Respiratory Effort Cardiovascular: Regular Rate, Regular Rhythm GI/Abdominal Exam: Normal Bowel Sounds, Soft Extremities: Normal Inspection Skin: Warm, Dry, Intact Neurological: Cranial Nerves Intact Psychiatric: Alert, Normal Affect - Patient Data Lab Results Last 24 hrs: Laboratory Results - last 24 hr 04/01/17 04/01/17 04/01/17 Range/Units 03:58 05:00 05:00 WBC 10.42 (4.0-11.0) K/uL RBC 5.72 (4.50-5.90) M/uL Hgb 12.4 L (13.0-17.0) g/dL Hct 38.7 (38.0-50.0) % MCV 67.7 L (80.0-98.0) fL MCH 21.7 L (27.0-32.0) pg MCHC 32.0 (31.0-37.0) g/dL RDW Std Deviation 37.1 (28.0-62.0) fl RDW Coeff of Dania 15 (11.0-15.0) % Plt Count 322 (150-400) K/uL MPV 10.40 (7.40-12.00) fL Neut % (Auto) 89.6 H (48.0-80.0) % Lymph % (Auto) 8.9 L (16.0-40.0) % [place] % (Auto) 1.3 (0.0-15.0) % Eos % (Auto) 0.0 (0.0-7.0) % Baso % (Auto) 0.2 (0.0-1.5) % Neut # (Auto) 9.3 H (1.4-5.7) K/uL Lymph # (Auto) 0.9 (0.6-2.4) K/uL [place] # (Auto) 0.1 (0.0-0.8) K/uL Eos # (Auto) 0.0 (0.0-0.7) K/uL Baso # (Auto) 0.0 (0.0-0.1) K/uL Nucleated RBC % 0.0 /100WBC Nucleated RBCs # 0 K/uL Sodium 142 (136-146) mmol/L Potassium 4.5 (3.5-5.1) mmol/L Chloride 107 (98-110) mmol/L Carbon Dioxide 23 (21-31) mmol/L BUN 22 (6.0-23.0) mg/dL Creatinine 1.3 (0.6-1.5) mg/dL Est Cr Clr Drug Dosing 80.68 mL/min Estimated GFR (MDRD) > 60.0 ml/min Glucose 326 H (60-110) mg/dL POC Glucose 257 H (60-110) mg/dL Calcium 9.1 (8.8-10.8) mg/dL Magnesium 1.8 (1.5-2.3) mEq/L Total Bilirubin 0.3 (0.1-1.5) mg/dL AST 33 (5-40) IU/L ALT 37 (8-54) IU/L Alkaline Phosphatase 89 (40-150) Total Protein 6.6 (6.0-8.0) g/dL Albumin 3.5 (3.5-5.0) g/dL Globulin 3.1 (2.0-3.5) g/dL Albumin/Globulin Ratio 1.1 L (1.3-2.8) 04/01/17 04/01/17 04/01/17 Range/Units 05:55 08:12 10:04 WBC (4.0-11.0) K/uL RBC (4.50-5.90) M/uL Hgb (13.0-17.0) g/dL Hct (38.0-50.0) % MCV (80.0-98.0) fL MCH (27.0-32.0) pg MCHC (31.0-37.0) g/dL RDW Std Deviation (28.0-62.0) fl RDW Coeff of Dania (11.0-15.0) % Plt Count (150-400) K/uL MPV (7.40-12.00) fL Neut % (Auto) (48.0-80.0) % Lymph % (Auto) (16.0-40.0) % [place] % (Auto) (0.0-15.0) % Eos % (Auto) (0.0-7.0) % Baso % (Auto) (0.0-1.5) % Neut # (Auto) (1.4-5.7) K/uL Lymph # (Auto) (0.6-2.4) K/uL [place] # (Auto) (0.0-0.8) K/uL Eos # (Auto) (0.0-0.7) K/uL Baso # (Auto) (0.0-0.1) K/uL Nucleated RBC % /100WBC Nucleated RBCs # K/uL Sodium (136-146) mmol/L Potassium (3.5-5.1) mmol/L Chloride (98-110) mmol/L Carbon Dioxide (21-31) mmol/L BUN (6.0-23.0) mg/dL Creatinine (0.6-1.5) mg/dL Est Cr Clr Drug Dosing mL/min Estimated GFR (MDRD) ml/min Glucose (60-110) mg/dL POC Glucose 283 H 239 H 121 H (60-110) mg/dL Calcium (8.8-10.8) mg/dL Magnesium (1.5-2.3) mEq/L Total Bilirubin (0.1-1.5) mg/dL AST (5-40) IU/L ALT (8-54) IU/L Alkaline Phosphatase (40-150) Total Protein (6.0-8.0) g/dL Albumin (3.5-5.0) g/dL Globulin (2.0-3.5) g/dL Albumin/Globulin Ratio (1.3-2.8) Result Diagrams: 04/01/17 05:00 04/01/17 05:00 *Q Meaningful Use (ADM) - VTE *Q VTE Criteria *Q: - Stroke *Q Stroke Criteria *Q: - AMI *Q AMI Criteria *Q: Problem List Initiated/Reviewed/Updated: Yes Orders Last 24hrs: Active Orders 24 hr Category Date Time Status Communication Order [RC] ROUTINE Care 04/01/17 07:49 Active Gastric Occult/pH Collection D [RC] ASDIRECTED Care 04/01/17 09:17 Active Notify Provider Consults [RC] ASDIRECTED Care 04/01/17 07:09 Active Telemetry Monitoring [Cardiac Monitoring] [RC] . Care 04/01/17 06:24 Active DIRECTED Consult to Physician [CONS] Urgent Cons 04/01/17 07:09 Active NPO [Nothing Per Oral Diet] [DIET] Diet 04/01/17 Breakfast Active CBC WITH AUTO DIFF [HEME] Q4H Lab 04/01/17 09:00 Ordered CBC WITH AUTO DIFF [HEME] Q4H Lab 04/01/17 13:00 Ordered CBC WITH AUTO DIFF [HEME] Q4H Lab 04/01/17 17:00 Ordered CBC WITH AUTO DIFF [HEME] Q4H Lab 04/01/17 21:00 Ordered CULTURE URINE [RM] Routine Lab 04/01/17 10:24 Uncollected Hemoccult [OCCULT BLOOD DIAGNOSTIC] [OP] Routine Lab 04/01/17 09:07 Uncollected OCCULT BLD GASTRIC Routine Lab 04/01/17 06:00 Received UA W/MICROSCOPIC [URIN] Routine Lab 04/01/17 10:26 Uncollected Pantoprazole [ProTONIX IV] 80 mg Med 04/01/17 07:30 Active Sodium Chloride 0.9% [Normal Saline] 100 ml IV Q10H Patient's Own Medication [Ptom] Med 04/01/17 21:00 Active 1 each PO BEDTIME Promethazine [Phenergan] Med 04/01/17 07:07 Active 25 mg IM Q6H PRN Medication Orders Acetaminophen (Tylenol) 650 mg PO Q4H PRN PRN Reason: Pain (Mild 1-3)/fever Bisacodyl (Dulcolax) 5 mg PO DAILY PRN PRN Reason: Constipation Hydromorphone HCl (Dilaudid) 1 mg IVPUSH Q2H PRN PRN Reason: Pain (severe 7-10) Last Admin: 04/01/17 02:24 Dose: 1 mg Sodium Chloride (Normal Saline) 1,000 mls @ 75 mls/hr IV ASDIRECTED [facility] Last Admin: 04/01/17 02:48 Dose: 75 mls/hr Pantoprazole Sodium 80 mg/ (Sodium Chloride) 100 mls @ 10 mls/hr IV Q10H [facility] Last Admin: 04/01/17 08:16 Dose: Not Given Admin: 04/01/17 08:15 Dose: 10 mls/hr Insulin Aspart (Novolog) 0 unit SUBCUT Q2HR MICHAEL PRN Reason: Protocol Last Admin: 04/01/17 10:07 Dose: Not Given Admin: 04/01/17 08:16 Dose: 4 units Admin: 04/01/17 06:04 Dose: 6 units Admin: 04/01/17 04:07 Dose: 6 units Lorazepam (Ativan) 1 mg IM Q6H PRN PRN Reason: Nausea/Vomiting Nitroglycerin (Nitro-Bid 2%) 1 gm TOP Q6H [facility] Last Admin: 04/01/17 06:06 Dose: 1 gm Admin: 04/01/17 00:16 Dose: 1 gm Nitroglycerin (Nitro-Bid 2%) 1 gm TOP Q6H PRN PRN Reason: Chest Pain Ondansetron HCl (Zofran) 4 mg IVPUSH Q4H PRN PRN Reason: Nausea Last Admin: 04/01/17 04:42 Dose: 4 mg Ramipril 1.25 Mg 1 each PO BEDTIME MICHAEL Promethazine HCl (Phenergan) 25 mg IM Q6H PRN PRN Reason: Nausea/Vomiting Last Admin: 04/01/17 07:23 Dose: 25 mg Sodium Chloride (Saline Flush) 10 ml FLUSH ASDIRECTED PRN PRN Reason: Keep Vein Open Last Admin: 04/01/17 00:28 Dose: 10 ml Admin: 03/31/17 23:45 Dose: 10 ml Sodium Chloride (Saline Flush) 2.5 ml FLUSH ASDIRECTED PRN PRN Reason: Keep Vein Open Last Admin: 03/31/17 23:45 Dose: 2.5 ml Temazepam (Restoril) 15 mg PO BEDTIME PRN PRN Reason: Sleep Assessment/Plan Comment:: 31 yo male admitted for hyperglycemia and gastritis Patient requested to go home. He would not answer any questions or give history to me despite multiple attempts. Dr. Doyle spoke to patient and he stated he takes only short acting insulin prn. he ran out of his medications. He clearly stated to be discharged. His HB is 12.4, his blood sugars are stable, he did not any episodes of hemetemesis. He was discharged with protonix and novolog pen. He was also given a novolog pen upon discharge. He is to follow up PCP.
--- NOTE | 2017-04-01 11:39 | CR ---
EXAM DATE: 04/01/17 PATIENT'S AGE: 31 Patient: DAWOOD DUCKWORTH Facility: [place], [place] Site . Site : 1985 Study: XRay Chest [id number] 11:46:19 PM Ordering Physician: Doctor Gill Final Report: INDICATION: SOB, VOMITING TECHNIQUE: Chest 1 view COMPARISON: December 14, 2016. FINDINGS: Cardiovascular and mediastinum: Heart size and vasculature are normal in caliber and appearance. Mediastinum is within normal limits. Lungs and pleural space: No focal consolidation. No sign of pleural effusion. No pneumothorax. Bones and soft tissues: No significant findings. IMPRESSION: No acute cardiopulmonary disease. Dictated by Handy Mcgrath MD @ 03/31/2017 11:48:25 PM Dictated by: Handy Mcgrath MD @ 03/31/2017 23:48:34 (Electronic Signature) Report Signed by Proxy. [facility]
--- NOTE | 2017-04-01 11:44 | CT ---
EXAM DATE: 04/01/17 PATIENT'S AGE: 31 Patient: DAWOOD DUCKWORTH Facility: [place], [place] Site . Site : 1985 Study: CT Abdomen/Pelvis WO CONT [id number] 1:24:21 AM Ordering Physician: Rick Moran Final Report: INDICATION: Abdominal pain, nausea and vomiting, diabetes TECHNIQUE: CT abdomen and pelvis without contrast. COMPARISON: 11/07/59 FINDINGS: Lower chest: Unremarkable. Liver: Unremarkable. Spleen: Unremarkable. Pancreas: Unremarkable. Gallbladder and bile ducts: Unremarkable. Kidneys: Unremarkable. No kidney or ureteral stones and no hydronephrosis. Diffuse bladder wall thickening Adrenal glands: Unremarkable. GI tract: Diffuse colonic fecal retention Vascular structures: Unremarkable. Lymph nodes: Unremarkable. Miscellaneous: Unremarkable. No free air or significant free fluid. Pelvic Organs: Unremarkable. Bones: Unremarkable for age. IMPRESSION: No findings to explain the patient`s symptomatology. Diffuse bladder wall thickening. Correlate with cystitis clinically. No renal, ureteral or bladder calculi. No hydronephrosis. The appendix is not definitively demonstrated. Diffuse colonic fecal retention. Dictated by Pete Joyner MD @ 04/01/2017 1:58:59 AM Dictated by: Pete Joyner MD @ 04/01/2017 01:59:04 (Electronic Signature) Report Signed by Proxy. [facility]
[2017-04-01] MEDS ORDERED: RAMIPRIL 1.25 MG PO SCH (21:00)
== END 2017-04-01 12:55 | disposition home or self-care (01) | DRG 420 ==
LOC: MW.ED 23:25 → OBSVTOIN 04-01 02:11 → INTOOBSV 04-01 02:11 → MW.MS 04-01 02:11
PROVIDERS: ADMIT Family Medicine; ATTEND Family Medicine
DX: E10.65 Type 1 diabetes mellitus with hyperglycemia (principal); K29.70 Gastritis, unspecified, without bleeding; K21.9 Gastro-esophageal reflux disease without esophagitis; I12.9 Hypertensive chronic kidney disease with stage 1 through stage 4 chronic kidney disease, or unspecified chronic kidney disease; N18.9 Chronic kidney disease, unspecified; F41.9 Anxiety disorder, unspecified; F17.210 Nicotine dependence, cigarettes, uncomplicated; Z88.0 Allergy status to penicillin; Z79.4 Long term (current) use of insulin; Z79.899 Other long term (current) drug therapy
CPT/HCPCS: 36415; 36600; 71010; 71010-26; 74176; 74176-26; 80053; 81001; 82009; 82271; 82803; 82962; 83735; 85025; 93005; 96361; 96365; 96366; 96372; 96375; 96376; 99285; 99285-25; A9270-GY; C9113; J1170; J1815-GY ×2; J2405; J2550; J7030; J7040

== ENCOUNTER 2017-04-17 12:30 | Emergency (ER) | payer BC ==
[2017-04-17] MEDS ORDERED: Ondansetron 4 MG/2 ML SDV IVPUSH ONE (12:40)
[2017-04-17] MEDS ORDERED: Pantoprazole 40 MG in Sodium Chloride 0.9% 10 ML IVPUSH ONE (12:40)
[2017-04-17] MEDS ORDERED: Ketorolac 30 MG/ML SDV IVPUSH ONE (12:40)
[2017-04-17] MEDS ORDERED: Sodium Chloride 0.9% 1,000 ML IV ONE (12:40)
[2017-04-17] MEDS ORDERED: diphenhydrAMINE 50 MG/ML SDV IVPUSH ONE (13:31)
[2017-04-17] MEDS ORDERED: LORazepam 2 MG/ML MDV IVPUSH ONE (13:31)
[2017-04-17] MEDS ORDERED: Metoclopramide 10 MG/2 ML SDV IV ONE (13:31)
--- NOTE | 2017-04-17 13:41 | EDM.PDOC ---
ED HPI GENERAL MEDICAL PROBLEM - General Chief Complaint: General Stated Complaint: HIGH BLOOD SUGAR Time Seen by Provider: 04/17/17 12:34 Source of Information: Reports: Patient History Limitations: Reports: No Limitations - History of Present Illness INITIAL COMMENTS - FREE TEXT/NARRATIVE: History of present illness: [31-year-old male who is a known type I diabetic comes in with hyperglycemia and abdominal pain. Patient also has a known long-standing history of gastroparesis medical noncompliance. As hospitalization patient left AMA] Review of systems: As per history of present illness and below otherwise all systems reviewed and negative. Past medical history: As per history of present illness and as reviewed below otherwise noncontributory. Surgical history: As per history of present illness and as reviewed below otherwise noncontributory. Social history: No reported history of drug or alcohol abuse. Family history: As per history of present illness and as reviewed below otherwise noncontributory. Physical exam: HEENT: Atraumatic, normocephalic, pupils reactive, negative for conjunctival pallor or scleral icterus, mucous membranes moist, throat clear, neck supple, nontender, trachea midline. Lungs: Clear to auscultation, breath sounds equal bilaterally, chest nontender. Heart: S1S2, regular, negative for clicks, rubs, or JVD. Abdomen: Soft, diffuse nonspecific tenderness Negative for masses or hepatosplenomegaly. Negative for costovertebral tenderness. Pelvis: Stable nontender. Genitourinary: Deferred. Rectal: Deferred. Extremities: Atraumatic, negative for cords or calf pain. Neurovascular unremarkable. Neuro: Awake, alert, oriented. Cranial nerves II through XII unremarkable. Cerebellum unremarkable. Motor and sensory unremarkable throughout. Exam nonfocal. Patient with a small amount of vomiting while here patient medicated after subsequent medication patient resting quietly without further vomiting. Discussed admitting patient with him he indicated he would prefer not to be admitted discussed by mouth medications to manage vomiting at home he agreed that he would try them and would like prescriptions for the same. Diagnostics: [CBC, CMP] Therapeutics: [IV fluid, Toradol] Impression: [Cyclic vomiting] Plan: [Discharged with Reglan, Zofran, Ativan] Definitive disposition and diagnosis as appropriate pending reevaluation and review of above. abdominal pain Pain Score (Numeric/FACES): 9 - Related Data Allergies Allergy/AdvReac Type Severity Reaction Status Date / Time Penicillins Allergy Unknown Anaphylactic Verified 03/31/17 23:44 Shock iodine Allergy Anaphylactic Verified 03/31/17 23:44 Shock gluten Allergy Muscle Uncoded 03/31/17 23:44 Aches Home Meds: Home Meds Insulin Lispro [Humalog Kwikpen U-100] 1 injection SUBCNJ ASDIRECTED 04/03/14 [ History] Insulin Glargine,Hum.Rec.Anlog [Toujeo Solostar] 60 units SUBCUT DAILY 01/26/17 [History] Ramipril 1.25 mg PO BEDTIME 01/26/17 [History] Insulin Aspart [NovoLOG] 2 unit SUBCUT TIDAC #1 pen 04/01/17 [Rx] Pantoprazole Sodium [Protonix] 40 mg PO DAILY #30 tablet. 04/01/17 [Rx] Metoclopramide [Reglan] 10 mg PO Q6H #30 tablet 04/17/17 [Rx] diphenhydrAMINE [Benadryl] 50 mg PO Q8H #30 cap 04/17/17 [Rx] Past Medical History - Past Health History Medical/Surgical History: Denies Medical/Surgical History HEENT History: Reports: None Cardiovascular History: Reports: Hypertension Respiratory History: Reports: None Gastrointestinal History: Reports: Gastritis, GERD, Other (See Below) Other Gastrointestinal History: h/o gastric ulcers, h/o hiatal hernia Genitourinary History: Reports: Chronic Renal Insuffiency Musculoskeletal History: Reports: None Neurological History: Reports: None Psychiatric History: Reports: Anxiety Endocrine/Metabolic History: Reports: Diabetes, Type I, Other (See Below) Hematologic History: Reports: None Immunologic History: Reports: None Oncologic (Cancer) History: Reports: None Dermatologic History: Reports: None, Other (See Below) - Infectious Disease History Infectious Disease History: Reports: None Other Infectious Disease History: 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 - Past Surgical History Head Surgeries/Procedures: Reports: None HEENT Surgical History: Reports: None Cardiovascular Surgical History: Reports: None Respiratory Surgical History: Reports: None GI Surgical History: Reports: EGD Male Surgical History: Reports: None Endocrine Surgical History: Reports: None Dermatological Surgical History: Reports: None Social & Family History - Family History Family Medical History: Noncontributory Cardiac: Reports: High Cholesterol, Hypertension OBGYN: Reports: Neurological: Reports: None - Tobacco Use Smoking Status *Q: Current Every Day Smoker Years of Tobacco use: 7 Packs/Tins Daily: 0.5 Used Tobacco, but Quit: No Month Tobacco Last Used: smokes "acouple" cigarettes per day Second Hand Smoke Exposure: No - Caffeine Use Caffeine Use: Reports: Coffee - Alcohol Use Days Per Week of Alcohol Use: 0 Number of Drinks Per Day: 0 Total Drinks Per Week: 0 - Recreational Drug Use Recreational Drug Use: No Drug Use in Last 12 Months: No Recreational Drug Type: Reports: Marijuana/Hashish Recreational Drug Use Frequency: Socially ED ROS GENERAL - Review of Systems Review Of Systems: See Below (The history of present illness) ED EXAM, GENERAL - Physical Exam Exam: See Below (See history of present illness) Course - Vital Signs Last Recorded V/S: Last Vital Signs Temp 36.4 C 04/17/17 12:42 Pulse 108 H 04/17/17 13:33 Resp 18 04/17/17 13:33 BP 235/136 H 04/17/17 13:33 Pulse Ox 96 04/17/17 13:33 - Orders/Labs/Meds Orders: Active Orders 24 hr Category Date Time Status EKG 12 Lead [EKG Documentation Completion] [RC] STAT Care 04/17/17 12:37 Active Labs: Laboratory Tests 04/17/17 04/17/17 04/17/17 Range/Units 12:53 12:53 13:20 WBC 8.51 (4.0-11.0) K/uL RBC 5.66 (4.50-5.90) M/uL Hgb 12.3 L (13.0-17.0) g/dL Hct 37.3 L (38.0-50.0) % MCV 65.9 L (80.0-98.0) fL MCH 21.7 L (27.0-32.0) pg MCHC 33.0 (31.0-37.0) g/dL RDW Std Deviation 36.3 (28.0-62.0) fl RDW Coeff of Dania 15 (11.0-15.0) % Plt Count 262 (150-400) K/uL MPV 10.70 (7.40-12.00) fL Neut % (Auto) 68.7 (48.0-80.0) % Lymph % (Auto) 26.2 (16.0-40.0) % [place] % (Auto) 4.8 (0.0-15.0) % Eos % (Auto) 0.2 (0.0-7.0) % Baso % (Auto) 0.1 (0.0-1.5) % Neut # (Auto) 5.8 H (1.4-5.7) K/uL Lymph # (Auto) 2.2 (0.6-2.4) K/uL [place] # (Auto) 0.4 (0.0-0.8) K/uL Eos # (Auto) 0.0 (0.0-0.7) K/uL Baso # (Auto) 0.0 (0.0-0.1) K/uL Nucleated RBC % 0.0 /100WBC Nucleated RBCs # 0 K/uL Sodium 141 (136-146) mmol/L Potassium 3.8 (3.5-5.1) mmol/L Chloride 102 (98-110) mmol/L Carbon Dioxide 24 (21-31) mmol/L BUN 38 H (6.0-23.0) mg/dL Creatinine 1.5 (0.6-1.5) mg/dL Est Cr Clr Drug Dosing 72.01 mL/min Estimated GFR (MDRD) > 60.0 ml/min Glucose 267 H (60-110) mg/dL Calcium 9.4 (8.8-10.8) mg/dL Total Bilirubin 0.3 (0.1-1.5) mg/dL AST 37 (5-40) IU/L ALT 35 (8-54) IU/L Alkaline Phosphatase 92 (40-150) Total Protein 6.8 (6.0-8.0) g/dL Albumin 3.6 (3.5-5.0) g/dL Globulin 3.2 (2.0-3.5) g/dL Albumin/Globulin Ratio 1.1 L (1.3-2.8) Amylase 94 H (10-90) U/L Lipase < 8 (7-80) U/L Urine Color YELLOW Urine Appearance CLEAR Urine pH 8.5 H (5.0-8.0) Ur Specific [place] 1.025 (1.001-1.035) Urine Protein 100 (NEGATIVE) mg/dL Urine Glucose (UA) >=1000 (NEGATIVE) mg/dL Urine Ketones NEGATIVE (NEGATIVE) mg/dL Urine Occult Blood MODERATE (NEGATIVE) Urine Nitrite NEGATIVE (NEGATIVE) Urine Bilirubin NEGATIVE (NEGATIVE) Urine Urobilinogen 0.2 (<2.0) EU/dL Ur Leukocyte Esterase NEGATIVE (NEGATIVE) Urine RBC 8-12 (0-2/HPF) Urine WBC 0-2 (0-5/HPF) Ur Epithelial Cells RARE (NONE-FEW) Urine Bacteria RARE (NEGATIVE) Meds: Medications Discontinued Medications Generic Name Dose Route Start Last Admin Trade Name Freq PRN Reason Stop Dose Admin Diphenhydramine HCl 50 mg 04/17/17 13:31 04/17/17 13:39 Benadryl IVPUSH 04/17/17 13:32 50 mg ONETIME ONE Administration Sodium Chloride 1,000 mls @ 999 mls/hr 04/17/17 12:40 04/17/17 12:50 Normal Saline IV 04/17/17 13:40 999 mls/hr STAT ONE Administration Pantoprazole Sodium 40 mg/ 10 mls @ 300 mls/hr 04/17/17 12:40 04/17/17 12:51 Sodium Chloride IVPUSH 04/17/17 12:41 300 mls/hr NOW ONE Administration Ketorolac Tromethamine 30 mg 04/17/17 12:40 04/17/17 12:51 Toradol IVPUSH 04/17/17 12:41 30 mg ONETIME ONE Administration Lorazepam 1 mg 04/17/17 13:31 04/17/17 13:39 Ativan IVPUSH 04/17/17 13:32 1 mg ONETIME ONE Administration Metoclopramide HCl 10 mg 04/17/17 13:31 04/17/17 13:38 Reglan IV 04/17/17 13:32 10 mg ONETIME ONE Administration Ondansetron HCl 4 mg 04/17/17 12:40 04/17/17 12:51 Zofran IVPUSH 04/17/17 12:41 4 mg ONETIME ONE Administration Departure - Departure Time of Disposition: 14:46 Disposition: Home, Self-Care 01 Condition: Good Clinical Impression: Cyclical vomiting - Discharge Information Prescriptions: Metoclopramide [Reglan] 10 mg PO Q6H #30 tablet diphenhydrAMINE [Benadryl] 50 mg PO Q8H #30 cap Additional Instructions: The following information is given to patients seen in the emergency department who are being discharged to home. This information is to outline your options for follow-up care. We provide all patients seen in our emergency department with a follow-up referral. The need for follow-up, as well as the timing and circumstances, are variable depending upon the specifics of your emergency department visit. If you don't have a primary care physician on staff, we will provide you with a referral. We always advise you to contact your personal physician following an emergency department visit to inform them of the circumstance of the visit and for follow-up with them and/or the need for any referrals to a consulting specialist. The emergency department will also refer you to a specialist when appropriate. This referral assures that you have the opportunity for follow-up care with a specialist. All of these measure are taken in an effort to provide you with optimal care, which includes your follow-up. Under all circumstances we always encourage you to contact your private physician who remains a resource for coordinating your care. When calling for follow-up care, please make the office aware that this follow-up is from your recent emergency room visit. If for any reason you are refused follow-up, please contact the [facility] at and asked to speak to the emergency department charge nurse. Take medication as directed Follow-up with PCP in 1-2 days Return to ED as needed as discussed [facility] [address] [place] [id number] - My Orders Last 24 Hours: My Active Orders 04/17/17 12:37 EKG 12 Lead [EKG Documentation Completion] [RC] STAT - Assessment/Plan Last 24 Hours: My Active Orders 04/17/17 12:37 EKG 12 Lead [EKG Documentation Completion] [RC] STAT
[2017-04-17 13:43] LABS: CHLORIDE,CL 102 mmol/L (98-110); SODIUM,NA 141 mmol/L (136-146)
[2017-04-17 14:59] VITALS: BP 152/91
== END 2017-04-17 15:05 | disposition home or self-care (01) ==
LOC: MW.ED 12:30
DX: G43.A0 Cyclical vomiting, in migraine, not intractable (principal); K21.9 Gastro-esophageal reflux disease without esophagitis; I12.9 Hypertensive chronic kidney disease with stage 1 through stage 4 chronic kidney disease, or unspecified chronic kidney disease; N18.9 Chronic kidney disease, unspecified; E10.22 Type 1 diabetes mellitus with diabetic chronic kidney disease; F17.210 Nicotine dependence, cigarettes, uncomplicated; Z88.0 Allergy status to penicillin; Z91.048 Other nonmedicinal substance allergy status; Z79.4 Long term (current) use of insulin; Z79.899 Other long term (current) drug therapy
CPT/HCPCS: 36415; 80053; 81001; 82150; 83690; 85025; 93005; 96361; 96374; 96375; 99285; C9113; J1200; J1885; J2060; J2405; J2765; J7040; 99283

== ENCOUNTER 2017-07-15 16:03 | Emergency (ER) | payer BC, OTHER ==
--- NOTE | 2017-07-15 16:38 | EDM.PDOC ---
ED HPI GENERAL MEDICAL PROBLEM - General Chief Complaint: Medication Administration Stated Complaint: DIABETIC/NEEDS MEDICATION Time Seen by Provider: 07/15/17 16:20 Source of Information: Reports: Patient History Limitations: Reports: No Limitations - History of Present Illness INITIAL COMMENTS - FREE TEXT/NARRATIVE: HISTORY AND PHYSICAL: History of present illness: [Patient comes to the emergency room requesting refill of his NovoLog pen. He has type 1 diabetes and had been following regularly with Dr. Infante. He apparently has not been seen by this provider since January 2017 and so his medications are unable to be refilled at this time. He has enough medicine to get him through the rest of today and none for tomorrow. He states that he has a difficult time keeping scheduled appointments due to a busy work schedule between 2 jobs. Blood sugars have been relatively normal in the 100s with some elevation to the 220s. He is on sliding scale insulin and uses no more than 50 units per day.] Review of systems: As per history of present illness and below otherwise all systems reviewed and negative. Past medical history: As per history of present illness and as reviewed below otherwise noncontributory. Surgical history: As per history of present illness and as reviewed below otherwise noncontributory. Social history: No reported history of drug or alcohol abuse. Family history: As per history of present illness and as reviewed below otherwise noncontributory. Physical exam: HEENT: Atraumatic, normocephalic. Neuro: Awake, alert, oriented. Motor and sensory unremarkable throughout. Exam nonfocal. Impression: [Type I diabetes] Plan: [Discussed with patient that we will refill his medication for him this time and this time only. Recommend he establish with a new primary care provider if he finds that his current provider is unable to work with his schedule. He is given referral to other PCPs in town. The patient is in agreement with today's plan. Rx written for Novolog pen (#6) sig: sliding scale as directed, not to exceed 50 units per day. 0 RF's. ] Definitive disposition and diagnosis as appropriate pending reevaluation and review of above. - Related Data Allergies Allergy/AdvReac Type Severity Reaction Status Date / Time Penicillins Allergy Unknown Anaphylactic Verified 07/15/17 16:16 Shock iodine Allergy Anaphylactic Verified 07/15/17 16:16 Shock gluten Allergy Muscle Uncoded 03/31/17 23:44 Aches Home Meds: Home Meds Insulin Aspart [NovoLOG] 2 unit SUBCUT ASDIRECTED 07/15/17 [History] Insulin Glarg,Human.Rec.Analog [LantUS Solostar] 42 units SQ BEDTIME 07/15/17 [ History] Omeprazole Magnesium [Prilosec Otc] 20 mg PO DAILY 07/15/17 [History] Past Medical History - Past Health History Medical/Surgical History: Denies Medical/Surgical History HEENT History: Reports: None Cardiovascular History: Reports: Hypertension Respiratory History: Reports: None Gastrointestinal History: Reports: Gastritis, GERD, Other (See Below) Other Gastrointestinal History: h/o gastric ulcers, h/o hiatal hernia Genitourinary History: Reports: Chronic Renal Insuffiency Musculoskeletal History: Reports: None Neurological History: Reports: None Psychiatric History: Reports: Anxiety Endocrine/Metabolic History: Reports: Diabetes, Type I, Other (See Below) Hematologic History: Reports: None Immunologic History: Reports: None Oncologic (Cancer) History: Reports: None Dermatologic History: Reports: None, Other (See Below) - Infectious Disease History Infectious Disease History: Reports: Chicken Pox Other Infectious Disease History: 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 - Past Surgical History Head Surgeries/Procedures: Reports: None HEENT Surgical History: Reports: None Cardiovascular Surgical History: Reports: None Respiratory Surgical History: Reports: None GI Surgical History: Reports: EGD Male Surgical History: Reports: None Endocrine Surgical History: Reports: None Dermatological Surgical History: Reports: None Social & Family History - Family History Family Medical History: Noncontributory Cardiac: Reports: High Cholesterol, Hypertension OBGYN: Reports: Neurological: Reports: None - Tobacco Use Smoking Status *Q: Current Every Day Smoker Years of Tobacco use: 10 Packs/Tins Daily: 0.5 Used Tobacco, but Quit: No Month Tobacco Last Used: smokes "acouple" cigarettes per day Second Hand Smoke Exposure: No - Caffeine Use Caffeine Use: Reports: Coffee - Alcohol Use Days Per Week of Alcohol Use: 0 Number of Drinks Per Day: 0 Total Drinks Per Week: 0 - Recreational Drug Use Recreational Drug Use: No Drug Use in Last 12 Months: No Recreational Drug Type: Reports: Marijuana/Hashish Recreational Drug Use Frequency: Socially ED ROS GENERAL - Review of Systems Review Of Systems: ROS reveals no pertinent complaints other than HPI. ED EXAM, GENERAL - Physical Exam Exam: See Below Course - Vital Signs Last Recorded V/S: Last Vital Signs Temp 98.8 F 07/15/17 16:13 Pulse 113 H 07/15/17 16:48 Resp 16 07/15/17 16:48 BP 139/78 07/15/17 16:48 Pulse Ox 95 07/15/17 16:48 Departure - Departure Time of Disposition: 16:40 Disposition: Home, Self-Care 01 Condition: Good Clinical Impression: Diabetes mellitus type I - Discharge Information Instructions: Type 1 Diabetes Mellitus, Adult Referrals: PCP,None [Primary Care Provider] - Forms: ED Department Discharge Additional Instructions: The following information is given to patients seen in the emergency department who are being discharged to home. This information is to outline your options for follow-up care. We provide all patients seen in our emergency department with a follow-up referral. The need for follow-up, as well as the timing and circumstances, are variable depending upon the specifics of your emergency department visit. If you don't have a primary care physician on staff, we will provide you with a referral. We always advise you to contact your personal physician following an emergency department visit to inform them of the circumstance of the visit and for follow-up with them and/or the need for any referrals to a consulting specialist. The emergency department will also refer you to a specialist when appropriate. This referral assures that you have the opportunity for follow-up care with a specialist. All of these measure are taken in an effort to provide you with optimal care, which includes your follow-up. Under all circumstances we always encourage you to contact your private physician who remains a resource for coordinating your care. When calling for follow-up care, please make the office aware that this follow-up is from your recent emergency room visit. If for any reason you are refused follow-up, please contact the [facility] emergency department at and asked to speak to the emergency department charge nurse. [facility] [address] [place] [id number] Establish care with a provider at the clinic listed above. Keep next scheduled appointment to obtain refills on her medications. Return to ER as needed as discussed.
[2017-07-15 16:49] VITALS: BP 139/78
== END 2017-07-15 16:49 | disposition home or self-care (01) ==
LOC: MW.ED 16:03
DX: E10.22 Type 1 diabetes mellitus with diabetic chronic kidney disease (principal); I12.9 Hypertensive chronic kidney disease with stage 1 through stage 4 chronic kidney disease, or unspecified chronic kidney disease; N18.9 Chronic kidney disease, unspecified; K21.9 Gastro-esophageal reflux disease without esophagitis; F17.210 Nicotine dependence, cigarettes, uncomplicated; Z79.4 Long term (current) use of insulin; Z79.899 Other long term (current) drug therapy; Z88.0 Allergy status to penicillin; Z88.8 Allergy status to other drugs, medicaments and biological substances
CPT/HCPCS: 99281

== ENCOUNTER 2017-07-20 17:33 | Emergency (ER) | payer BC, OTHER ==
[2017-07-20] MEDS ORDERED: Sodium Chloride 0.9% 2.5 ML Syringe FLUSH PRN (18:03)
[2017-07-20] MEDS ORDERED: Diphtheria,Pertussis(Acell),Tetanus Vaccine 0.5 ML Syringe IM ONE (18:03)
[2017-07-20] MEDS ORDERED: Sodium Chloride 0.9% 10 ML Syringe FLUSH PRN (18:03)
--- NOTE | 2017-07-20 18:10 | EDM.PDOC ---
<Shirley Zurita - Last Filed: 07/20/17 18:54> ED HPI GENERAL MEDICAL PROBLEM - General Chief Complaint: General Stated Complaint: PAIN/SWELLING LEGS/FEET Time Seen by Provider: 07/20/17 17:53 - History of Present Illness INITIAL COMMENTS - FREE TEXT/NARRATIVE: HISTORY AND PHYSICAL: History of present illness: The patient is a 32-year-old male with a history of type 1 diabetes and renal insufficiency who presents with complaints of several days of bilateral lower extremity edema right slightly greater than the left and elevated blood sugars in the 300s. The patient has a history of medication noncompliance and frequent ER visits for his diabetes and says he's been following in the clinic. The patient says that from a renal standpoint he saw a phlebotomy services technician one year ago in [place] and followed up in our clinic and was told that his labs were improved and he was doing well from that standpoint. He has no cardiac issues and has no current chest pain shortness of breath fever chills cough abdominal pain vomiting. Patient said that he stands on his feet for long hours and the swelling in his legs is bilateral and is worse at the end of the day and improves as he elevates. He has not had this in the past. He says it doesn't extend up his legs to his eyes and he does not have neuropathy as a result of his diabetes. Patient also says he has a heel ulcer/wound has had for several weeks but has not seen his primary for it. He has been treating it at home and feels that is improving. He is unsure of his last tetanus shot. The patient doesn't complain of leg pain per se but says that the leg still somewhat tight. He has no weakness in his legs. The patient said his blood sugars in the 300s are actually improved and he is trying to stay on top of them. The patient has been eating and urinating normally and has not had specifically polyuria Review of systems: As per history of present illness and below otherwise all systems reviewed and negative. Past medical history: As per history of present illness and as reviewed below otherwise noncontributory. Surgical history: As per history of present illness and as reviewed below otherwise noncontributory. Social history: No reported history of drug or alcohol abuse. Family history: As per history of present illness and as reviewed below otherwise noncontributory. Physical exam: Gen.: Well-developed well-nourished man is nontoxic and speaking clearly and easily in the ER. He does not have a smell of ketones on his breath and vital signs are noted by me. HEENT: Atraumatic, normocephalic, negative for conjunctival pallor or scleral icterus, mucous membranes moist, throat clear, neck supple, nontender, trachea midline. Lungs: Clear to auscultation, breath sounds equal bilaterally, chest nontender. No worker breathing or sensory muscle use Heart: S1S2, regular rhythm slightly tachycardic rate of my evaluation Abdomen: Soft, nondistended, nontender. NABS. Pelvis: deferred Genitourinary: Deferred. Rectal: Deferred. Extremities: Atraumatic, full range of motion without defects or deficits, there is pitting edema bilaterally +2 with a right slightly greater than left and there are chronic skin changes seen of the pretibial areas. There are also chronic skin changes seen of his upper forearms. At the right heel there is a clean open wound with a surrounding callus but no fluctuance no crepitus no drainage no erythema and no tenderness. The legs are negative for cords or calf pain. Neurovascular unremarkable. Neuro: Awake, alert, oriented. Cranial nerves II through XII unremarkable. Cerebellum unremarkable. Motor and sensory unremarkable throughout. Exam nonfocal. Diagnostics: EKG CBC CMP INR troponin serum ketones UA chest x-ray x-ray of right foot bilateral venous Dopplers BNP [employer]: tDap, IV lock 1900: Labs x-rays and Dopplers are pending at the time of transition of care to Dr. Fernandes. He will follow up his testing results and treat pending these results Impression: hyperglycemia with history of diabetes, bilateral lower extremity edema, healing right heel ulcer stable Definitive disposition and diagnosis as appropriate pending reevaluation and review of above. Feet Pain Score (Numeric/FACES): 4 - Related Data Allergies Allergy/AdvReac Type Severity Reaction Status Date / Time Penicillins Allergy Unknown Anaphylactic Verified 07/15/17 16:16 Shock iodine Allergy Anaphylactic Verified 07/15/17 16:16 Shock gluten Allergy Muscle Uncoded 03/31/17 23:44 Aches Home Meds: Home Meds Insulin Aspart [NovoLOG] 2 unit SUBCUT ASDIRECTED 07/15/17 [History] Insulin Glarg,Human.Rec.Analog [LantUS Solostar] 42 units SQ BEDTIME 07/15/17 [ History] Omeprazole Magnesium [Prilosec Otc] 20 mg PO DAILY 07/15/17 [History] Ramipril [Altace] 1.25 mg PO BEDTIME 07/20/17 [History] Past Medical History - Past Health History Medical/Surgical History: Denies Medical/Surgical History HEENT History: Reports: None Cardiovascular History: Reports: Hypertension Respiratory History: Reports: None Gastrointestinal History: Reports: Gastritis, GERD, Other (See Below) Other Gastrointestinal History: h/o gastric ulcers, h/o hiatal hernia Genitourinary History: Reports: Chronic Renal Insuffiency Musculoskeletal History: Reports: None Neurological History: Reports: None Psychiatric History: Reports: Anxiety Endocrine/Metabolic History: Reports: Diabetes, Type I, Other (See Below) Hematologic History: Reports: None Immunologic History: Reports: None Oncologic (Cancer) History: Reports: None Dermatologic History: Reports: None, Other (See Below) - Infectious Disease History Infectious Disease History: Reports: Chicken Pox Other Infectious Disease History: 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 - Past Surgical History Head Surgeries/Procedures: Reports: None HEENT Surgical History: Reports: None Cardiovascular Surgical History: Reports: None Respiratory Surgical History: Reports: None GI Surgical History: Reports: EGD Male Surgical History: Reports: None Endocrine Surgical History: Reports: None Dermatological Surgical History: Reports: None Social & Family History - Family History Family Medical History: Noncontributory Cardiac: Reports: High Cholesterol, Hypertension OBGYN: Reports: Neurological: Reports: None - Tobacco Use Smoking Status *Q: Current Every Day Smoker Years of Tobacco use: 10 Packs/Tins Daily: 0.5 Used Tobacco, but Quit: No Month Tobacco Last Used: smokes "acouple" cigarettes per day Second Hand Smoke Exposure: No - Caffeine Use Caffeine Use: Reports: Coffee, Energy Drinks, Soda, Tea - Alcohol Use Days Per Week of Alcohol Use: 0 Number of Drinks Per Day: 0 Total Drinks Per Week: 0 - Recreational Drug Use Recreational Drug Use: No Drug Use in Last 12 Months: No Recreational Drug Type: Reports: Marijuana/Hashish Recreational Drug Use Frequency: Socially ED ROS GENERAL - Review of Systems Review Of Systems: ROS reveals no pertinent complaints other than HPI. ED EXAM, GENERAL - Physical Exam Exam: See Below (See dictation) Course - Vital Signs Last Recorded V/S: Last Vital Signs Temp 36.7 C 07/20/17 17:47 Pulse 119 H 07/20/17 17:47 Resp 18 07/20/17 17:47 BP 147/74 H 07/20/17 17:47 Pulse Ox 97 07/20/17 17:47 - Orders/Labs/Meds Orders: Active Orders 24 hr Category Date Time Status Blood Glucose Check, Bedside [RC] ONETIME Care 07/20/17 18:03 Active EKG Documentation Completion [RC] STAT Care 07/20/17 18:02 Active Vaccines to be Administered [RC] PER UNIT ROUTINE Care 07/20/17 18:03 Active Chest 1V Frontal [CR] Stat Exams 07/20/17 18:03 Taken Foot 2V Rt [CR] Stat Exams 07/20/17 18:04 Taken Venous Doppler Lwr Ext Bi [US] Stat Exams 07/20/17 18:03 Taken Sodium Chloride 0.9% [Saline Flush] Med 07/20/17 18:03 Active 10 ml FLUSH ASDIRECTED PRN Sodium Chloride 0.9% [Saline Flush] Med 07/20/17 18:03 Active 2.5 ml FLUSH ASDIRECTED PRN Saline Lock Insert [OM.PC] Stat Oth 07/20/17 18:02 Ordered Medication Orders Sodium Chloride (Saline Flush) 10 ml FLUSH ASDIRECTED PRN PRN Reason: Keep Vein Open Last Admin: 07/20/17 18:29 Dose: 10 ml Sodium Chloride (Saline Flush) 2.5 ml FLUSH ASDIRECTED PRN PRN Reason: Keep Vein Open Last Admin: 07/20/17 18:29 Dose: 2.5 ml Labs: Laboratory Tests 07/20/17 07/20/17 07/20/17 Range/Units 18:22 18:22 18:22 WBC 11.49 H (4.0-11.0) K/uL RBC 4.16 L (4.50-5.90) M/uL Hgb 9.2 L (13.0-17.0) g/dL Hct 28.3 L (38.0-50.0) % MCV 68.0 L (80.0-98.0) fL MCH 22.1 L (27.0-32.0) pg MCHC 32.5 (31.0-37.0) g/dL RDW Std Deviation 40.3 (28.0-62.0) fl RDW Coeff of Dania 17 H (11.0-15.0) % Plt Count 361 (150-400) K/uL MPV 9.80 (7.40-12.00) fL Neut % (Auto) 73.1 (48.0-80.0) % Lymph % (Auto) 19.7 (16.0-40.0) % [place] % (Auto) 5.0 (0.0-15.0) % Eos % (Auto) 1.9 (0.0-7.0) % Baso % (Auto) 0.3 (0.0-1.5) % Neut # (Auto) 8.4 H (1.4-5.7) K/uL Lymph # (Auto) 2.3 (0.6-2.4) K/uL [place] # (Auto) 0.6 (0.0-0.8) K/uL Eos # (Auto) 0.2 (0.0-0.7) K/uL Baso # (Auto) 0.0 (0.0-0.1) K/uL Nucleated RBC % 0.0 /100WBC Nucleated RBCs # 0 K/uL INR 0.86 (0.86-1.11) Sodium 137 (136-146) mmol/L Potassium 4.4 (3.5-5.1) mmol/L Chloride 105 (98-110) mmol/L Carbon Dioxide 25 (21-31) mmol/L BUN 42 H (6.0-23.0) mg/dL Creatinine 1.5 (0.6-1.5) mg/dL Est Cr Clr Drug Dosing 69.03 mL/min Estimated GFR (MDRD) > 60.0 ml/min Glucose 394 H (60-110) mg/dL Calcium 8.6 L (8.8-10.8) mg/dL Total Bilirubin < 0.1 L (0.1-1.5) mg/dL AST 38 (5-40) IU/L ALT 40 (8-54) IU/L Alkaline Phosphatase 150 (40-150) Troponin I < 0.10 (0.0-0.29) NG/ML B-Natriuretic Peptide (<100) PG/ML Total Protein 6.6 (6.0-8.0) g/dL Albumin 2.8 L (3.5-5.0) g/dL Globulin 3.8 H (2.0-3.5) g/dL Albumin/Globulin Ratio 0.7 L (1.3-2.8) Urine Color Urine Appearance Urine pH (5.0-8.0) Ur Specific [place] (1.001-1.035) Urine Protein (NEGATIVE) mg/dL Urine Glucose (UA) (NEGATIVE) mg/dL Urine Ketones (NEGATIVE) mg/dL Urine Occult Blood (NEGATIVE) Urine Nitrite (NEGATIVE) Urine Bilirubin (NEGATIVE) Urine Urobilinogen (<2.0) EU/dL Ur Leukocyte Esterase (NEGATIVE) Urine RBC (0-2/HPF) Urine WBC (0-5/HPF) Ur Epithelial Cells (NONE-FEW) Urine Bacteria (NEGATIVE) Ketones (NEG) 07/20/17 07/20/17 07/20/17 Range/Units 18:22 18:22 19:37 WBC (4.0-11.0) K/uL RBC (4.50-5.90) M/uL Hgb (13.0-17.0) g/dL Hct (38.0-50.0) % MCV (80.0-98.0) fL MCH (27.0-32.0) pg MCHC (31.0-37.0) g/dL RDW Std Deviation (28.0-62.0) fl RDW Coeff of Dania (11.0-15.0) % Plt Count (150-400) K/uL MPV (7.40-12.00) fL Neut % (Auto) (48.0-80.0) % Lymph % (Auto) (16.0-40.0) % [place] % (Auto) (0.0-15.0) % Eos % (Auto) (0.0-7.0) % Baso % (Auto) (0.0-1.5) % Neut # (Auto) (1.4-5.7) K/uL Lymph # (Auto) (0.6-2.4) K/uL [place] # (Auto) (0.0-0.8) K/uL Eos # (Auto) (0.0-0.7) K/uL Baso # (Auto) (0.0-0.1) K/uL Nucleated RBC % /100WBC Nucleated RBCs # K/uL INR (0.86-1.11) Sodium (136-146) mmol/L Potassium (3.5-5.1) mmol/L Chloride (98-110) mmol/L Carbon Dioxide (21-31) mmol/L BUN (6.0-23.0) mg/dL Creatinine (0.6-1.5) mg/dL Est Cr Clr Drug Dosing mL/min Estimated GFR (MDRD) ml/min Glucose (60-110) mg/dL Calcium (8.8-10.8) mg/dL Total Bilirubin (0.1-1.5) mg/dL AST (5-40) IU/L ALT (8-54) IU/L Alkaline Phosphatase (40-150) Troponin I (0.0-0.29) NG/ML B-Natriuretic Peptide 21 (<100) PG/ML Total Protein (6.0-8.0) g/dL Albumin (3.5-5.0) g/dL Globulin (2.0-3.5) g/dL Albumin/Globulin Ratio (1.3-2.8) Urine Color YELLOW Urine Appearance CLEAR Urine pH 6.0 (5.0-8.0) Ur Specific [place] >= 1.030 (1.001-1.035) Urine Protein >=300 (NEGATIVE) mg/dL Urine Glucose (UA) >=1000 (NEGATIVE) mg/dL Urine Ketones NEGATIVE (NEGATIVE) mg/dL Urine Occult Blood SMALL H (NEGATIVE) Urine Nitrite NEGATIVE (NEGATIVE) Urine Bilirubin NEGATIVE (NEGATIVE) Urine Urobilinogen 0.2 (<2.0) EU/dL Ur Leukocyte Esterase NEGATIVE (NEGATIVE) Urine RBC 2-3 (0-2/HPF) Urine WBC 0-1 (0-5/HPF) Ur Epithelial Cells OCCASIONAL (NONE-FEW) Urine Bacteria FEW (NEGATIVE) Ketones NEGATIVE (NEG) Meds: Medications Generic Name Dose Route Start Last Admin Trade Name Freq PRN Reason Stop Dose Admin Sodium Chloride 10 ml 07/20/17 18:03 11/06/17 18:29 Saline Flush FLUSH 10 ml ASDIRECTED PRN Administration Keep Vein Open Sodium Chloride 2.5 ml 07/20/17 18:03 07/20/17 18:29 Saline Flush FLUSH 2.5 ml ASDIRECTED PRN Administration Keep Vein Open Discontinued Medications Generic Name Dose Route Start Last Admin Trade Name Freq PRN Reason Stop Dose Admin Diphtheria/Tetanus/Acell Pertussis 0.5 ml 07/20/17 18:03 07/20/17 18:30 Adacel IM 07/20/17 18:04 0.5 ml .ONCE ONE Administration Departure - Departure Disposition: Home, Self-Care 01 Condition: Good Clinical Impression: Hyperglycemia due to type 1 diabetes mellitus, Lower extremity edema - Discharge Information Referrals: PCP,None [Primary Care Provider] - Forms: ED Department Discharge Additional Instructions: The following information is given to patients seen in the emergency department who are being discharged to home. This information is to outline your options for follow-up care. We provide all patients seen in our emergency department with a follow-up referral. The need for follow-up, as well as the timing and circumstances, are variable depending upon the specifics of your emergency department visit. If you don't have a primary care physician on staff, we will provide you with a referral. We always advise you to contact your personal physician following an emergency department visit to inform them of the circumstance of the visit and for follow-up with them and/or the need for any referrals to a consulting specialist. The emergency department will also refer you to a specialist when appropriate. This referral assures that you have the opportunity for followup care with a specialist. All of these measure are taken in an effort to provide you with optimal care, which includes your followup. Under all circumstances we always encourage you to contact your private physician who remains a resource for coordinating your care. When calling for followup care, please make the office aware that this follow-up is from your recent emergency room visit. If for any reason you are refused follow-up, please contact the [facility] emergency department at and asked to speak to the emergency department charge nurse. [facility] - Podiatry [address] [place] [id number] Fax: [phone] Bactrim clindamycin as prescribed follow-up podiatry and private medical doctor as discussed return as needed as discussed <Michael Fernandes - Last Filed: 07/20/17 20:05> Course - Vital Signs Text/Narrative:: Labs x-ray ultrasound all reviewed and discussed with patient will be discharged with clindamycin and Bactrim for his diabetic foot ulcer and given podiatry for follow-up patient understands and agrees he is return as needed as discussed Departure - Departure Time of Disposition: 19:30
[2017-07-20 18:56] LABS: CHLORIDE,CL 105 mmol/L (98-110); SODIUM,NA 137 mmol/L (136-146)
[2017-07-20 20:21] VITALS: BP 153/94
--- NOTE | 2017-07-21 10:04 | US ---
EXAM DATE: 07/20/17 PATIENT'S AGE: 32 Patient: DAWOOD UDCKWORTH Facility: [place], [place] Site . Site : 1985 Study: US Extremity Bilateral VENOUS [id number] 7:15:06 PM Ordering Physician: Parminder Watson Final Report: INDICATION: BILAT LEG PAIN R GREATER THAN LT BILATERAL LOWER EXTREMITY VENOUS DUPLEX ULTRASOUND TECHNIQUE: Duplex sonography using grayscale imaging as well as color and spectral Doppler interrogation was performed over both lower extremities with attention to the deep venous system. FINDINGS: The common femoral, femoral, deep femoral, popliteal, and posterior tibial veins show normal compressibility, color Doppler flow, and augmentation response bilaterally. IMPRESSION: No evidence of deep venous thrombosis in either lower extremity. MICHELLE NY MD [employer] Dictated by: Ede Ny MD @ 07/20/2017 20:02:18 (Electronic Signature) Report Signed by Proxy. [facility]
--- NOTE | 2017-07-21 10:05 | CR ---
EXAM DATE: 07/20/17 PATIENT'S AGE: 32 Patient: DAWOOD DUCKWORTH Facility: [place], [place] Site . Site : 1985 Study: XRay Extremity Right Foot [id number] 7:34:58 PM Ordering Physician: Doctor Gill Final Report: INDICATION: Pain, swelling x4 days, no injury TECHNIQUE: Foot radiograph 2 views right COMPARISON: None FINDINGS: Bones: Alignment is normal. No acute fractures or aggressive bone lesions identified. Joint spaces: Unremarkable. No ankle effusion is seen. Soft tissues: Mild diffuse dorsal swelling seen. Vascular calcifications are noted. K[place]`s fat pad is normal in appearance. The visualized Achilles` tendon is unremarkable. No radiopaque foreign bodies are seen. IMPRESSION: 1. No acute osseous injuries are noted. Dictated by: Josh Vick MD @ 07/20/2017 19:52:12 (Electronic Signature) Report Signed by Proxy. [facility]
--- NOTE | 2017-07-21 10:06 | CR ---
EXAM DATE: 07/20/17 PATIENT'S AGE: 32 Patient: DAWOOD DUCKWORTH Facility: [place], [place] Site . Site : 1985 Study: XRay Chest [id number] 7:35:30 PM Ordering Physician: Doctor Gill Final Report: INDICATION: Rt leg swelling TECHNIQUE: Chest radiograph 1 view right COMPARISON: 03/31/17 FINDINGS: Cardiovascular and mediastinum: The cardiac silhouette is normal in appearance and size. Mediastinum is within normal limits. Lungs and pleural spaces: Both lungs are unremarkable in appearance. No sign of pleural effusion. No pneumothorax is seen. Bones and soft tissues: No significant findings. IMPRESSION: 1. No acute cardiopulmonary disease seen. Dictated by: Josh Vick MD @ 07/20/2017 19:53:26 (Electronic Signature) Report Signed by Proxy. [facility]ENTERLedy
== END 2017-07-20 20:25 | disposition home or self-care (01) ==
LOC: MW.ED 17:33
DX: E10.65 Type 1 diabetes mellitus with hyperglycemia (principal); R60.0 Localized edema; L97.419 Non-pressure chronic ulcer of right heel and midfoot with unspecified severity; E10.622 Type 1 diabetes mellitus with other skin ulcer; F17.210 Nicotine dependence, cigarettes, uncomplicated
CPT/HCPCS: 71010; 71010-26; 73620-26-RT; 73620-RT; 80053; 81001; 82009; 83880; 84484; 85025; 85610; 90471; 90715; 93005; 93970; 93970-26; 99283; 99284-25

== ENCOUNTER 2017-07-22 00:54 | Observation (INO) | payer BC, OTHER ==
[2017-07-22] MEDS ORDERED: Albuterol/Ipratropium 3.0-0.5 MG/3 ML Neb Soln NEB STA (01:02)
--- NOTE | 2017-07-22 01:37 | EDM.PDOC ---
ED HPI GENERAL MEDICAL PROBLEM - General Chief Complaint: Respiratory Problem Stated Complaint: TROUBLE BREATHING Time Seen by Provider: 07/22/17 00:59 - History of Present Illness INITIAL COMMENTS - FREE TEXT/NARRATIVE: HISTORY AND PHYSICAL: History of present illness: Patient 32-year-old black male history of diabetes who presents with concern of cough and shortness of breath he was seen yesterday for peripheral edema and a diabetic ulcer ulcer to his foot his workup including venous Doppler of his lower extremities BNP and routine labs was negative for any evidence of DVT or osteomyelitis he was prescribed Bactrim and clindamycin and given follow-up he returns now for about Review of systems: As per history of present illness and below otherwise all systems reviewed and negative. Past medical history: As per history of present illness and as reviewed below otherwise noncontributory. Surgical history: As per history of present illness and as reviewed below otherwise noncontributory. Social history: No reported history of drug or alcohol abuse. Family history: As per history of present illness and as reviewed below otherwise noncontributory. Physical exam: HEENT: Atraumatic, normocephalic, pupils reactive, negative for conjunctival pallor or scleral icterus, mucous membranes moist, throat clear, neck supple, nontender, trachea midline. Lungs: Coarse breath sounds bilaterally with scattered rhonchi and wheezing, breath sounds equal bilaterally, chest nontender. Heart: S1S2, regular, negative for clicks, rubs, or JVD. Abdomen: Soft, nondistended, nontender. Negative for masses or hepatosplenomegaly. Negative for costovertebral tenderness. Pelvis: Stable nontender. Genitourinary: Deferred. Rectal: Deferred. Extremities: negative for cords or calf pain. Neurovascular unremarkable. Neuro: Awake, alert, oriented. Cranial nerves II through XII unremarkable. Cerebellum unremarkable. Motor and sensory unremarkable throughout. Exam nonfocal. Diagnostics: CBC CMP troponin BNP chest x-ray EKG blood culture 2 Therapeutics: IV O2 monitor albuterol ipratropium nebulizer Impression: #1 pneumonitis with hypoxemia #2 history of diabetes #3 peripheral edema etiology to be determined Definitive disposition and diagnosis as appropriate pending reevaluation and review of above. chest pain Pain Score (Numeric/FACES): 6 - Related Data Allergies Allergy/AdvReac Type Severity Reaction Status Date / Time Penicillins Allergy Unknown Anaphylactic Verified 07/22/17 01:01 Shock iodine Allergy Anaphylactic Verified 07/22/17 01:01 Shock gluten Allergy Muscle Uncoded 07/22/17 01:01 Aches Home Meds: Home Meds Insulin Aspart [NovoLOG] 2 unit SUBCUT ASDIRECTED 07/15/17 [History] Insulin Glarg,Human.Rec.Analog [LantUS Solostar] 42 units SQ BEDTIME 07/15/17 [ History] Omeprazole Magnesium [Prilosec Otc] 20 mg PO DAILY 07/15/17 [History] Ramipril [Altace] 1.25 mg PO BEDTIME 07/20/17 [History] Past Medical History - Past Health History Medical/Surgical History: Denies Medical/Surgical History HEENT History: Reports: None Cardiovascular History: Reports: Hypertension Respiratory History: Reports: None Gastrointestinal History: Reports: Gastritis, GERD, Hiatal Hernia, Other (See Below) Other Gastrointestinal History: h/o gastric ulcers, h/o hiatal hernia Genitourinary History: Reports: Chronic Renal Insuffiency Musculoskeletal History: Reports: None Neurological History: Reports: None Psychiatric History: Reports: Anxiety Endocrine/Metabolic History: Reports: Diabetes, Type I, Other (See Below) Hematologic History: Reports: None Immunologic History: Reports: None Oncologic (Cancer) History: Reports: None Dermatologic History: Reports: None - Infectious Disease History Infectious Disease History: Reports: None Other Infectious Disease History: 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 - Past Surgical History Head Surgeries/Procedures: Reports: None HEENT Surgical History: Reports: None Cardiovascular Surgical History: Reports: None Respiratory Surgical History: Reports: None GI Surgical History: Reports: EGD Male Surgical History: Reports: None Endocrine Surgical History: Reports: None Dermatological Surgical History: Reports: None Social & Family History - Family History Family Medical History: Noncontributory Cardiac: Reports: High Cholesterol, Hypertension OBGYN: Reports: Neurological: Reports: None - Tobacco Use Smoking Status *Q: Current Every Day Smoker Years of Tobacco use: 10 Packs/Tins Daily: 0.3 Used Tobacco, but Quit: No Month Tobacco Last Used: smokes "acouple" cigarettes per day Second Hand Smoke Exposure: No - Caffeine Use Caffeine Use: Reports: Coffee, Soda - Alcohol Use Days Per Week of Alcohol Use: 0 Number of Drinks Per Day: 0 Total Drinks Per Week: 0 - Recreational Drug Use Recreational Drug Use: No Drug Use in Last 12 Months: No Recreational Drug Type: Reports: Marijuana/Hashish Recreational Drug Use Frequency: Socially ED ROS GENERAL - Review of Systems Review Of Systems: ROS reveals no pertinent complaints other than HPI. ED EXAM, GENERAL - Physical Exam Exam: See Below (The dictation) Course - Vital Signs Last Recorded V/S: Last Vital Signs Temp 36.6 C 07/22/17 01:03 Pulse 120 H 07/22/17 01:48 Resp 20 07/22/17 01:48 BP 171/91 H 07/22/17 01:48 Pulse Ox 98 07/22/17 01:48 - Orders/Labs/Meds Orders: Active Orders 24 hr Category Date Time Status EKG Documentation Completion [RC] STAT Care 07/22/17 00:58 Active RT Aerosol Therapy [RC] ASDIRECTED Care 07/22/17 01:02 Active Ang Chest [CT] Stat Exams 07/22/17 02:23 Ordered Chest 1V Frontal [CR] Stat Exams 07/22/17 00:57 Taken CULTURE BLOOD [BC] Stat Lab 07/22/17 01:06 Received CULTURE BLOOD [BC] Stat Lab 07/22/17 01:20 Received Levofloxacin/Dextrose 5%-Water [Levaquin in D5W 750 MG/ Med 07/22/17 01:43 Active 150 ML] 750 mg Premix Bag 1 bag IV ONETIME Sodium Chloride 0.9% [Normal Saline] 1,000 ml Med 07/22/17 02:23 Ordered IV .BOLUS Blood Culture x2 Reflex Set [OM.PC] Stat Oth 07/22/17 01:03 Ordered Medication Orders Levofloxacin/Dextrose 750 mg/ (Premix) 150 mls @ 100 mls/hr IV ONETIME ONE Stop: 07/22/17 03:12 Last Admin: 07/22/17 01:49 Dose: 100 mls/hr Sodium Chloride (Normal Saline) 1,000 mls @ 999 mls/hr IV .BOLUS ONE Stop: 07/22/17 03:23 Labs: Laboratory Tests 07/22/17 07/22/17 07/22/17 Range/Units 01:05 01:06 01:06 WBC 12.86 H (4.0-11.0) K/uL RBC 4.43 L (4.50-5.90) M/uL Hgb 9.6 L (13.0-17.0) g/dL Hct 30.1 L (38.0-50.0) % MCV 67.9 L (80.0-98.0) fL MCH 21.7 L (27.0-32.0) pg MCHC 31.9 (31.0-37.0) g/dL RDW Std Deviation 39.8 (28.0-62.0) fl RDW Coeff of Dania 17 H (11.0-15.0) % Plt Count 373 (150-400) K/uL MPV 10.10 (7.40-12.00) fL Neut % (Auto) 75.2 (48.0-80.0) % Lymph % (Auto) 15.8 L (16.0-40.0) % [place] % (Auto) 7.2 (0.0-15.0) % Eos % (Auto) 1.6 (0.0-7.0) % Baso % (Auto) 0.2 (0.0-1.5) % Neut # (Auto) 9.7 H (1.4-5.7) K/uL Lymph # (Auto) 2.0 (0.6-2.4) K/uL [place] # (Auto) 0.9 H (0.0-0.8) K/uL Eos # (Auto) 0.2 (0.0-0.7) K/uL Baso # (Auto) 0.0 (0.0-0.1) K/uL INR 0.87 (0.86-1.11) D-Dimer, Quantitative 0.87 H (0.0-0.52) mg/LFEU Sodium (136-146) mmol/L Potassium (3.5-5.1) mmol/L Chloride (98-110) mmol/L Carbon Dioxide (21-31) mmol/L BUN (6.0-23.0) mg/dL Creatinine (0.6-1.5) mg/dL Est Cr Clr Drug Dosing mL/min Estimated GFR (MDRD) ml/min Glucose (60-110) mg/dL POC Glucose 255 H (60-110) mg/dL Calcium (8.8-10.8) mg/dL Total Bilirubin (0.1-1.5) mg/dL AST (5-40) IU/L ALT (8-54) IU/L Alkaline Phosphatase (40-150) Troponin I (0.0-0.29) NG/ML B-Natriuretic Peptide (<100) PG/ML Total Protein (6.0-8.0) g/dL Albumin (3.5-5.0) g/dL Globulin (2.0-3.5) g/dL Albumin/Globulin Ratio (1.3-2.8) 07/22/17 07/22/17 Range/Units 01:06 01:06 WBC (4.0-11.0) K/uL RBC (4.50-5.90) M/uL Hgb (13.0-17.0) g/dL Hct (38.0-50.0) % MCV (80.0-98.0) fL MCH (27.0-32.0) pg MCHC (31.0-37.0) g/dL RDW Std Deviation (28.0-62.0) fl RDW Coeff of Dania (11.0-15.0) % Plt Count (150-400) K/uL MPV (7.40-12.00) fL Neut % (Auto) (48.0-80.0) % Lymph % (Auto) (16.0-40.0) % [place] % (Auto) (0.0-15.0) % Eos % (Auto) (0.0-7.0) % Baso % (Auto) (0.0-1.5) % Neut # (Auto) (1.4-5.7) K/uL Lymph # (Auto) (0.6-2.4) K/uL [place] # (Auto) (0.0-0.8) K/uL Eos # (Auto) (0.0-0.7) K/uL Baso # (Auto) (0.0-0.1) K/uL INR (0.86-1.11) D-Dimer, Quantitative (0.0-0.52) mg/LFEU Sodium 138 (136-146) mmol/L Potassium 4.6 (3.5-5.1) mmol/L Chloride 107 (98-110) mmol/L Carbon Dioxide 24 (21-31) mmol/L BUN 32 H (6.0-23.0) mg/dL Creatinine 1.5 (0.6-1.5) mg/dL Est Cr Clr Drug Dosing 62.07 mL/min Estimated GFR (MDRD) > 60.0 ml/min Glucose 309 H (60-110) mg/dL POC Glucose (60-110) mg/dL Calcium 8.6 L (8.8-10.8) mg/dL Total Bilirubin 0.1 (0.1-1.5) mg/dL AST 51 H (5-40) IU/L ALT 42 (8-54) IU/L Alkaline Phosphatase 150 (40-150) Troponin I < 0.10 (0.0-0.29) NG/ML B-Natriuretic Peptide 123 H (<100) PG/ML Total Protein 6.5 (6.0-8.0) g/dL Albumin 2.9 L (3.5-5.0) g/dL Globulin 3.6 H (2.0-3.5) g/dL Albumin/Globulin Ratio 0.8 L (1.3-2.8) Meds: Medications Generic Name Dose Route Start Last Admin Trade Name Freq PRN Reason Stop Dose Admin Levofloxacin/Dextrose 750 mg/ 150 mls @ 100 mls/hr 07/22/17 01:43 07/22/17 01 :49 Premix IV 07/22/17 03:12 100 mls/hr ONETIME ONE Administration Sodium Chloride 1,000 mls @ 999 mls/hr 07/22/17 02:23 Normal Saline IV 07/22/17 03:23 .BOLUS ONE Discontinued Medications Generic Name Dose Route Start Last Admin Trade Name Freq PRN Reason Stop Dose Admin Albuterol/Ipratropium 3 ml 07/22/17 01:02 07/22/17 01:15 Duoneb 3.0-0.5 Mg/3 Ml NEB 07/22/17 01:03 3 ml STAT STA Administration Departure - Departure Time of Disposition: 02:24 Disposition: Admitted As Inpatient 67 Condition: Good Clinical Impression: Hypoxemia, Pneumonia, Diabetes - Discharge Information Referrals: PCP,None [Primary Care Provider] - Forms: ED Department Discharge - My Orders Last 24 Hours: My Active Orders 07/22/17 00:57 Chest 1V Frontal [CR] Stat 07/22/17 00:58 EKG Documentation Completion [RC] STAT 07/22/17 01:02 RT Aerosol Therapy [RC] ASDIRECTED 07/22/17 01:03 Blood Culture x2 Reflex Set [OM.PC] Stat 07/22/17 01:06 CULTURE BLOOD [BC] Stat 07/22/17 01:20 CULTURE BLOOD [BC] Stat 07/22/17 01:43 Levofloxacin/Dextrose 5%-Water [Levaquin in D5W 750 MG/150 ML] 750 mg Premix Bag 1 bag IV ONETIME 07/22/17 02:23 Ang Chest [CT] Stat Sodium Chloride 0.9% [Normal Saline] 1,000 ml IV .BOLUS - Assessment/Plan Last 24 Hours: My Active Orders 07/22/17 00:57 Chest 1V Frontal [CR] Stat 07/22/17 00:58 EKG Documentation Completion [RC] STAT 07/22/17 01:02 RT Aerosol Therapy [RC] ASDIRECTED 07/22/17 01:03 Blood Culture x2 Reflex Set [OM.PC] Stat 07/22/17 01:06 CULTURE BLOOD [BC] Stat 07/22/17 01:20 CULTURE BLOOD [BC] Stat 07/22/17 01:43 Levofloxacin/Dextrose 5%-Water [Levaquin in D5W 750 MG/150 ML] 750 mg Premix Bag 1 bag IV ONETIME 07/22/17 02:23 Ang Chest [CT] Stat Sodium Chloride 0.9% [Normal Saline] 1,000 ml IV .BOLUS
[2017-07-22] MEDS ORDERED: Levofloxacin/Dextrose 5%-Water 750 MG in Premix Bag 1 BAG IV ONE (01:43)
[2017-07-22 01:48] LABS: CHLORIDE,CL 107 mmol/L (98-110); SODIUM,NA 138 mmol/L (136-146)
[2017-07-22] MEDS ORDERED: Sodium Chloride 0.9% 1,000 ML IV ONE (02:23)
[2017-07-22] MEDS ORDERED: Enoxaparin 100 MG/1 ML Syringe SUBCUT STA (03:16)
[2017-07-22] MEDS ORDERED: Sodium Chloride 0.9% 2.5 ML Syringe FLUSH PRN (04:42)
[2017-07-22] MEDS ORDERED: Sodium Chloride 0.9% 10 ML Syringe FLUSH PRN (04:42)
[2017-07-22] MEDS ORDERED: Acetaminophen 325 MG Tab PO PRN (04:42)
[2017-07-22] MEDS: Morphine 2 MG/ML Syringe IVPUSH PRN ×2 (07:01→11:33)
[2017-07-22] MEDS: Insulin Aspart 100 Units/ML 3 ML Pen SUBCUT SCH ×4 (07:28→20:41)
[2017-07-22] MEDS ORDERED: Albuterol/Ipratropium 3.0-0.5 MG/3 ML Neb Soln NEB PRN (07:43)
--- NOTE | 2017-07-22 10:01 | PCM.HP ---
<Bryan Infante - Last Filed: 07/22/17 09:56> H&P History of Present Illness - General Date of Service: 07/22/17 Admit Problem/Dx: Admission Diagnosis/Problem Admission Diagnosis/Problem Pneumonia Source of Information: Patient History Limitations: Reports: No Limitations - History of Present Illness Initial Comments - Free Text/Narative: 32M with a past history of poorly controlled T1DM, hypertension that presented to the ER with a chief complaint of shortness of breath. As per the patient, he has noted swelling in his legs that is new to him. He then began to progressively feel short of breath since yesterday. He tells me that he has been compliant with his insulin regimen but his sugars have been running in the 3-400s lately. He also states he is compliant with his blood pressure medications. Denies any other symptoms currently like chest pain, fever, chills , nausea, abdominal pain, vomiting. ER Course: CXR indicates possible interstitial pneumonia. Saturating well on 2L Via [place] CT Angio negative for PE Levaquin 750mg IV q24hr ONCE chest pain Pain Score (Numeric/FACES): 6 - Related Data Allergies/Adverse Reactions: Allergies Allergy/AdvReac Type Severity Reaction Status Date / Time shrimp Allergy Severe Other Verified 07/22/17 02:58 iodine Allergy Unknown Anaphylactic Verified 07/22/17 02:58 Shock Penicillins Allergy Unknown Anaphylactic Verified 07/22/17 02:58 Shock gluten Allergy Unknown Muscle Uncoded 07/22/17 02:58 Aches Home Medications: Home Meds Insulin Glarg,Human.Rec.Analog [LantUS Solostar] 42 units SQ BEDTIME 07/15/17 [ History] Omeprazole Magnesium [Prilosec Otc] 20 mg PO DAILY 07/15/17 [History] Enalapril [Vasotec] 20 mg PO BEDTIME 30 Days #30 tablet 07/23/17 [Rx] Insulin Aspart [NovoLOG] 4 unit SUBCUT ASDIRECTED #0 07/23/17 [Rx] Levofloxacin 750 mg PO DAILY 4 Days #4 tablet 07/23/17 [Rx] Past Medical History - Past Health History Medical/Surgical History: Denies Medical/Surgical History HEENT History: Reports: Impaired Vision Cardiovascular History: Reports: Hypertension Respiratory History: Reports: None Gastrointestinal History: Reports: Gastritis, GERD, Hiatal Hernia, Other (See Below) Other Gastrointestinal History: h/o gastric ulcers, h/o hiatal hernia Genitourinary History: Reports: Chronic Renal Insuffiency Musculoskeletal History: Reports: None Neurological History: Reports: None Psychiatric History: Reports: Anxiety Endocrine/Metabolic History: Reports: Diabetes, Type I, Other (See Below) Hematologic History: Reports: Anemia Immunologic History: Reports: None Oncologic (Cancer) History: Reports: None Dermatologic History: Reports: None, Other (See Below) Other Dermatologic History: diabetic foot ulcer - Infectious Disease History Infectious Disease History: Reports: Chicken Pox Other Infectious Disease History: 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 - Past Surgical History Head Surgeries/Procedures: Reports: None HEENT Surgical History: Reports: None Cardiovascular Surgical History: Reports: None Respiratory Surgical History: Reports: None GI Surgical History: Reports: EGD Male Surgical History: Reports: None Endocrine Surgical History: Reports: None Dermatological Surgical History: Reports: None Social & Family History - Family History Family Medical History: Noncontributory Cardiac: Reports: High Cholesterol, Hypertension OBGYN: Reports: Neurological: Reports: None - Tobacco Use Smoking Status *Q: Current Every Day Smoker Years of Tobacco use: 10 Packs/Tins Daily: 0.5 Used Tobacco, but Quit: No Month Tobacco Last Used: smokes "acouple" cigarettes per day Second Hand Smoke Exposure: Yes - Caffeine Use Caffeine Use: Reports: Coffee, Energy Drinks - Alcohol Use Days Per Week of Alcohol Use: 0 Number of Drinks Per Day: 0 Total Drinks Per Week: 0 - Recreational Drug Use Recreational Drug Use: No Drug Use in Last 12 Months: No Recreational Drug Type: Reports: Marijuana/Hashish Recreational Drug Use Frequency: Socially H&P Review of Systems - Review of Systems: Review Of Systems: See Below General: Reports: No Symptoms HEENT: Reports: No Symptoms Pulmonary: Reports: Shortness of Breath, Pleuritic Chest Pain Cardiovascular: Reports: No Symptoms Gastrointestinal: Reports: Decreased Appetite. Denies: Abdominal Pain, Constipation, Diarrhea, Difficulty Swallowing, Distension, Nausea Genitourinary: Reports: No Symptoms Musculoskeletal: Reports: No Symptoms Skin: Reports: No Symptoms Psychiatric: Reports: No Symptoms Neurological: Reports: No Symptoms Hematologic/Lymphatic: Reports: No Symptoms Immunologic: Reports: No Symptoms Exam - Exam Exam: See Below - Vital Signs Vital Signs: Last Vital Signs Temp 36.9 C 07/22/17 08:08 Pulse 100 07/22/17 08:08 Resp 20 07/22/17 08:08 BP 173/98 H 07/22/17 08:08 Pulse Ox 95 07/22/17 08:08 Weight: 93.485 kg - Exam General: Alert, Oriented, Cooperative HEENT: Conjunctiva Clear, EACs Clear, EOMI, Mucosa Moist & [place], Nares Patent Neck: Supple, Trachea Midline Lungs: Clear to Auscultation, Normal Respiratory Effort Cardiovascular: Regular Rate, Regular Rhythm, Normal S1, Normal S2 GI/Abdominal Exam: Normal Bowel Sounds, Soft, Non-Tender, No Organomegaly Extremities: Normal Inspection, Normal Range of Motion, Pedal Edema (1+) Skin: Warm, Intact Neurological: Cranial Nerves Intact Neuro Extensive - Mental Status: Alert, Oriented x3, Normal Mood/Affect Neuro Extensive - Motor, Sensory, Reflexes: CN II-XII Intact Psychiatric: Alert, Normal Affect, Normal Mood - Patient Data Result Diagrams: 07/22/17 01:06 07/22/17 01:06 *Q Meaningful Use (ADM) - VTE *Q VTE Criteria *Q: - Stroke *Q Stroke Criteria *Q: - AMI *Q AMI Criteria *Q: Problem List Initiated/Reviewed/Updated: Yes Orders Last 24hrs: Active Orders 24 hr Category Date Time Status Admission Status [Patient Status] [ADT] Routine ADT 07/22/17 02:27 Active Blood Glucose Check, Bedside [] QIDACANDBED Care 07/22/17 07:30 Active EKG 12 Lead [EKG Documentation Completion] [] ROUTINE Care 07/22/17 07:43 Active Oxygen Therapy Adult [Oxygen Therapy] [] ASDIRECTED Care 07/22/17 06:58 Active RT Aerosol Therapy [] ASDIRECTED Care 07/22/17 07:44 Active Telemetry Monitoring [Cardiac Monitoring] [] Q8H Care 07/22/17 03:33 Active [place] [employer] Diet [DIET] Diet 07/22/17 Breakfast Active Echo Comp wo Cont [US] Routine Exams 07/22/17 08:00 Taken Lung Vent & Perf Quantative [NM] Stat Exams 07/22/17 03:14 Ordered Acetaminophen [Tylenol] Med 07/22/17 04:42 Active 650 mg PO Q6H PRN Albuterol/Ipratropium [DuoNeb 3.0-0.5 MG/3 ML] Med 07/22/17 07:43 Active 3 ml NEB Q4HRRT PRN Insulin Aspart [NovoLOG] Med 07/22/17 07:30 Active See Protocol SUBCUT ACBED Morphine Med 07/22/17 04:42 Active 2 mg IVPUSH Q4H PRN Sodium Chloride 0.9% [Saline Flush] Med 07/22/17 04:42 Active 10 ml FLUSH ASDIRECTED PRN Sodium Chloride 0.9% [Saline Flush] Med 07/22/17 04:42 Active 2.5 ml FLUSH ASDIRECTED PRN Saline Lock Insert [OM.PC] Routine Oth 07/22/17 04:42 Ordered Medication Orders Acetaminophen (Tylenol) 650 mg PO Q6H PRN PRN Reason: Pain (mild 1-3) Albuterol/Ipratropium (Duoneb 3.0-0.5 Mg/3 Ml) 3 ml NEB Q4HRRT PRN PRN Reason: Shortness of Breath Insulin Aspart (Novolog) 0 unit SUBCUT ACBED MICHAEL PRN Reason: Protocol Last Admin: 07/22/17 07:28 Dose: 4 unit Morphine Sulfate (Morphine) 2 mg IVPUSH Q4H PRN PRN Reason: Pain (severe 7-10) Last Admin: 07/22/17 07:01 Dose: 2 mg Sodium Chloride (Saline Flush) 10 ml FLUSH ASDIRECTED PRN PRN Reason: Keep Vein Open Sodium Chloride (Saline Flush) 2.5 ml FLUSH ASDIRECTED PRN PRN Reason: Keep Vein Open Assessment/Plan Comment:: #1. Interstitial pneumonia #2. Poorly controlled type 1 diabetes #3. Poorly controlled hypertension #4. Elevated AST/ALT #5. Elevated BNP #6. Peripheral edema bilaterally Plan #1. admit to the floor observation #2. Vital signs per floor routine #3. Ins and outs per routine #4. Echocardiogram pending #5. Insulin sliding scale #6. Continue Levaquin IV every 24 hours 750mg for pneumonia #7. IV Lasix 40 mg once #8. Continue home medications for blood pressure. Currently on ramipril <Santana Gilbert - Last Filed: 07/23/17 15:38> H&P History of Present Illness - General Admit Problem/Dx: I performed a history and physical examination of the patient and I have discussed the management with the resident. I have reviewed the residents note and agree with the documented findings and plan of care Exam - Vital Signs Vital Signs: Last Vital Signs Temp 36.8 C 07/23/17 07:15 Pulse 107 H 07/23/17 07:15 Resp 15 07/23/17 07:15 BP 186/102 H 07/23/17 11:08 Pulse Ox 94 L 07/23/17 07:15 - Patient Data Lab Results Last 24 hrs: Laboratory Results - last 24 hr 07/22/17 07/22/17 07/22/17 Range/Units 04:44 06:25 11:04 WBC (4.0-11.0) K/uL RBC (4.50-5.90) M/uL Hgb (13.0-17.0) g/dL Hct (38.0-50.0) % MCV (80.0-98.0) fL MCH (27.0-32.0) pg MCHC (31.0-37.0) g/dL RDW Std Deviation (28.0-62.0) fl RDW Coeff of Dania (11.0-15.0) % Plt Count (150-400) K/uL MPV (7.40-12.00) fL Neut % (Auto) (48.0-80.0) % Lymph % (Auto) (16.0-40.0) % [place] % (Auto) (0.0-15.0) % Eos % (Auto) (0.0-7.0) % Baso % (Auto) (0.0-1.5) % Neut # (Auto) (1.4-5.7) K/uL Lymph # (Auto) (0.6-2.4) K/uL [place] # (Auto) (0.0-0.8) K/uL Eos # (Auto) (0.0-0.7) K/uL Baso # (Auto) (0.0-0.1) K/uL Nucleated RBC % /100WBC Nucleated RBCs # K/uL Sodium (136-146) mmol/L Potassium (3.5-5.1) mmol/L Chloride (98-110) mmol/L Carbon Dioxide (21-31) mmol/L BUN (6.0-23.0) mg/dL Creatinine (0.6-1.5) mg/dL Est Cr Clr Drug Dosing mL/min Estimated GFR (MDRD) ml/min Glucose (60-110) mg/dL POC Glucose 195 H 224 H 286 H (60-110) mg/dL Calcium (8.8-10.8) mg/dL 07/22/17 07/22/17 07/22/17 Range/Units 16:04 17:40 20:37 WBC (4.0-11.0) K/uL RBC (4.50-5.90) M/uL Hgb (13.0-17.0) g/dL Hct (38.0-50.0) % MCV (80.0-98.0) fL MCH (27.0-32.0) pg MCHC (31.0-37.0) g/dL RDW Std Deviation (28.0-62.0) fl RDW Coeff of Dania (11.0-15.0) % Plt Count (150-400) K/uL MPV (7.40-12.00) fL Neut % (Auto) (48.0-80.0) % Lymph % (Auto) (16.0-40.0) % [place] % (Auto) (0.0-15.0) % Eos % (Auto) (0.0-7.0) % Baso % (Auto) (0.0-1.5) % Neut # (Auto) (1.4-5.7) K/uL Lymph # (Auto) (0.6-2.4) K/uL [place] # (Auto) (0.0-0.8) K/uL Eos # (Auto) (0.0-0.7) K/uL Baso # (Auto) (0.0-0.1) K/uL Nucleated RBC % /100WBC Nucleated RBCs # K/uL Sodium (136-146) mmol/L Potassium (3.5-5.1) mmol/L Chloride (98-110) mmol/L Carbon Dioxide (21-31) mmol/L BUN (6.0-23.0) mg/dL Creatinine (0.6-1.5) mg/dL Est Cr Clr Drug Dosing mL/min Estimated GFR (MDRD) ml/min Glucose (60-110) mg/dL POC Glucose 178 H 256 H 179 H (60-110) mg/dL Calcium (8.8-10.8) mg/dL 07/23/17 07/23/17 07/23/17 Range/Units 04:40 04:40 07:01 WBC 12.30 H (4.0-11.0) K/uL RBC 4.07 L (4.50-5.90) M/uL Hgb 8.7 L (13.0-17.0) g/dL Hct 27.7 L (38.0-50.0) % MCV 68.1 L (80.0-98.0) fL MCH 21.4 L (27.0-32.0) pg MCHC 31.4 (31.0-37.0) g/dL RDW Std Deviation 40.8 (28.0-62.0) fl RDW Coeff of Dania 17 H (11.0-15.0) % Plt Count 341 (150-400) K/uL MPV 10.30 (7.40-12.00) fL Neut % (Auto) 72.6 (48.0-80.0) % Lymph % (Auto) 16.7 (16.0-40.0) % [place] % (Auto) 8.9 (0.0-15.0) % Eos % (Auto) 1.5 (0.0-7.0) % Baso % (Auto) 0.3 (0.0-1.5) % Neut # (Auto) 8.9 H (1.4-5.7) K/uL Lymph # (Auto) 2.1 (0.6-2.4) K/uL [place] # (Auto) 1.1 H (0.0-0.8) K/uL Eos # (Auto) 0.2 (0.0-0.7) K/uL Baso # (Auto) 0.0 (0.0-0.1) K/uL Nucleated RBC % 0.0 /100WBC Nucleated RBCs # 0 K/uL Sodium 136 (136-146) mmol/L Potassium 4.8 (3.5-5.1) mmol/L Chloride 105 (98-110) mmol/L Carbon Dioxide 25 (21-31) mmol/L BUN 26 H (6.0-23.0) mg/dL Creatinine 1.5 (0.6-1.5) mg/dL Est Cr Clr Drug Dosing 61.98 mL/min Estimated GFR (MDRD) > 60.0 ml/min Glucose 285 H (60-110) mg/dL POC Glucose 304 H (60-110) mg/dL Calcium 8.3 L (8.8-10.8) mg/dL Result Diagrams: 07/23/17 04:40 07/23/17 04:40 *Q Meaningful Use (ADM) - VTE *Q VTE Criteria *Q: - Stroke *Q Stroke Criteria *Q: - AMI *Q AMI Criteria *Q: Orders Last 24hrs: Active Orders 24 hr Category Date Time Status Diabetes Education [RC] DAILY Care 07/23/17 08:51 Active Ready for Discharge [RC] PER UNIT ROUTINE Care 07/23/17 09:22 Active Resuscitation Status Routine Resus Stat 07/22/17 14:56 Ordered
[2017-07-22] MEDS ORDERED: Metoprolol Tartrate 5 MG/5 ML SDV IVPUSH ONE (11:26)
--- NOTE | 2017-07-22 11:33 | NM ---
EXAMINATION: Ventilation/perfusion study HISTORY: Shortness of breath COMPARISON: Chest radiograph dated 07/22/2017 TECHNIQUE: Anterior, posterior, and oblique planar images obtained of the chest following the adminis tration of 3.1 mCi of technetium 99m labeled MAA and 32.4 mCi of technetium 99m labeled DTPA. FINDINGS: There is heterogeneous perfusion and ventilation noted within the lungs bilaterally. There is however no ventilation/perfusion mismatch demonstrated. No definite segmental perfusion defect. IMPRESSION: Low probability for a pulmonary embolism.
[2017-07-22] MEDS ORDERED: Furosemide 40 MG/4 ML VIAL IVPUSH ONE (11:56)
[2017-07-22] MEDS ORDERED: Ondansetron 4 MG/2 ML SDV IVPUSH PRN (12:02)
[2017-07-22] MEDS: Omeprazole 20 MG Cap.CR PO SCH (12:08)
--- NOTE | 2017-07-22 15:00 | CR ---
EXAM DATE: 07/22/17 PATIENT'S AGE: 32 Patient: DAWOOD DUCKWORTH Facility: [place], [place] Site . Site : [id number] Study: XRay Chest [id number]/8/[id number] 1:16:47 AM Ordering Physician: Doctor Gill Final Report: INDICATION: Chest pain. TECHNIQUE: Chest radiograph 1 view COMPARISON: 07/20/2017 FINDINGS: Mediastinum: The mediastinum is normal in appearance. The heart silhouette is normal in size and morphology. Lungs: The central pulmonary vessels are indistinct appearance with mild perihilar interstitial opacity seen. No sign of pleural effusion seen. No pneumothorax is identified. Bones: Unremarkable for age. IMPRESSION: 1. The central pulmonary vessels are indistinct appearance with mild perihilar interstitial opacity seen. This may be due to interstitial edema or interstitial pneumonia. Dictated by Josh Vick MD @ 07/22/2017 1:24:20 AM Dictated by: Josh Vick MD @ 07/22/2017 01:24:22 (Electronic Signature) Report Signed by Proxy. [facility]ENTER[facility]edy
[2017-07-23 05:32] LABS: CHLORIDE,CL 105 mmol/L (98-110); SODIUM,NA 136 mmol/L (136-146)
[2017-07-23] MEDS: Insulin Aspart 100 Units/ML 3 ML Pen SUBCUT SCH (07:40)
[2017-07-23] MEDS ORDERED: hydrALAZINE 20 MG/ML SDV IVPUSH ONE (08:01)
[2017-07-23] MEDS ORDERED: Levofloxacin/Dextrose 5%-Water 750 MG in Premix Bag 1 BAG IV SCH (09:00)
[2017-07-23] MEDS ORDERED: Patient's Own Medication 1 Each PO SCH (09:00)
[2017-07-23] MEDS: Omeprazole 20 MG Cap.CR PO SCH (09:21)
[2017-07-23 11:11] VITALS: BP 186/102
--- NOTE | 2017-07-23 11:14 | PCM.DCSUM1 ---
<Bryan Infante - Last Filed: 07/23/17 11:09> Discharge Summary - Hospital Course Free Text/Narrative:: Admission date July 22, 2017 Discharge date July 23, 2017 Admission diagnosis #1. Interstitial pneumonia #2. Elevated LFTs #3. Elevated BNP #4. Peripheral edema bilaterally #5. Shortness of breath #6. Hypertension Discharge diagnosis #1. Pneumonia resulting in shortness of breath that has improved #2. Peripheral edema bilaterally that has improved #3. Shortness of breath resolved saturating well on room air #4. Hypertension Hospital course This is a 32-year-old male with a history of poorly controlled type 1 diabetes presented to the emergency room on July 22 complaining of shortness of breath. As per the patient, he stated that he started to notice swelling in his legs bilaterally for the past few days and then began to feel short of breath shortly thereafter. He presents emergency room where he was found to be hypoxic , was placed on 2 L via nasal cannula and then admitted for observation. While in the hospital, an echocardiogram was obtained. He was started on IV Levaquin for pneumonia and noticed on chest x-ray. He was given 40 mg of IV Lasix once for his peripheral edema which did improve thereafter. Patient was then weaned off of the oxygen and tolerated this well. While in the hospital, he did have a blood pressure that was significantly elevated at 190/104. He was given a one- time dose of hydralazine 10 mg IV. Recheck prior to discharge had a blood pressure 150/99. Patient denied any headache, blurry vision, chest pain or palpitations with his high blood pressure. At the time of discharge, he was sent home on 20 mg enalapril by mouth daily. He was also sent home on 4 days of by mouth Levaquin 750 mg daily. He was advised to follow up with diabetic education, and a new primary care provider, Dr. Infante within 1 week. Appointments were made for both. Return precautions: Patient is advised to return to seek medical attention if he expresses any shortness of breath, chest pain, nausea or vomiting. He was counseled on importance of strong glucose control. - Discharge Data Discharge Date: 07/23/17 Discharge Disposition: Home, Self-Care 01 Condition: Fair - Patient Instructions Diet: Diabetic Diet Activity: As Tolerated Driving: May Drive Today Showering/Bathing: May Shower Notify Provider of: Fever, Nausea and/or Vomiting Other/Special Instructions: shortness of breath - Discharge Plan Prescriptions/Med Rec: Enalapril [Vasotec] 20 mg PO BEDTIME 30 Days #30 tablet Levofloxacin 750 mg PO DAILY 4 Days #4 tablet Home Medications: Home Meds Insulin Glarg,Human.Rec.Analog [LantUS Solostar] 42 units SQ BEDTIME 07/15/17 [ History] Omeprazole Magnesium [Prilosec Otc] 20 mg PO DAILY 07/15/17 [History] Enalapril [Vasotec] 20 mg PO BEDTIME 30 Days #30 tablet 07/23/17 [Rx] Insulin Aspart [NovoLOG] 4 unit SUBCUT ASDIRECTED #0 07/23/17 [Rx] Levofloxacin 750 mg PO DAILY 4 Days #4 tablet 07/23/17 [Rx] Patient Handouts: Enalapril tablets, Levofloxacin tablets, Community-Acquired Pneumonia, Adult, [id number] Referrals: Bryan Infante MD [Resident] - - Discharge Summary/Plan Comment DC Time >30 min.: No Discharge Summary/Plan Comment: Admission date July 22, 2017 Discharge date July 23, 2017 Admission diagnosis #1. Interstitial pneumonia #2. Elevated LFTs #3. Elevated BNP #4. Peripheral edema bilaterally #5. Shortness of breath #6. Hypertension Discharge diagnosis #1. Pneumonia resulting in shortness of breath that has improved #2. Peripheral edema bilaterally that has improved #3. Shortness of breath resolved saturating well on room air #4. Hypertension Hospital course This is a 32-year-old male with a history of poorly controlled type 1 diabetes presented to the emergency room on July 22 complaining of shortness of breath. As per the patient, he stated that he started to notice swelling in his legs bilaterally for the past few days and then began to feel short of breath shortly thereafter. He presents emergency room where he was found to be hypoxic , was placed on 2 L via nasal cannula and then admitted for observation. While in the hospital, an echocardiogram was obtained. He was started on IV Levaquin for pneumonia and noticed on chest x-ray. He was given 40 mg of IV Lasix once for his peripheral edema which did improve thereafter. Patient was then weaned off of the oxygen and tolerated this well. While in the hospital, he did have a blood pressure that was significantly elevated at 190/104. He was given a one- time dose of hydralazine 10 mg IV. Recheck prior to discharge had a blood pressure 150/99. Patient denied any headache, blurry vision, chest pain or palpitations with his high blood pressure. At the time of discharge, he was sent home on 20 mg enalapril by mouth daily. He was also sent home on 4 days of by mouth Levaquin 750 mg daily. He was advised to follow up with diabetic education, and a new primary care provider, Dr. Infante within 1 week. Appointments were made for both. Return precautions: Patient is advised to return to seek medical attention if he expresses any shortness of breath, chest pain, nausea or vomiting. He was counseled on importance of strong glucose control. - Patient Data Vitals - Most Recent: Last Vital Signs Temp 36.8 C 07/23/17 07:15 Pulse 107 H 07/23/17 07:15 Resp 15 07/23/17 07:15 BP 190/104 H 07/23/17 07:15 Pulse Ox 94 L 07/23/17 07:15 Weight - Most Recent: 93.485 kg I&O - Last 24 hours: Intake & Output 07/22/17 07/23/17 07/23/17 22:59 06:59 14:59 Intake Total 1170 340 390 Output Total 3050 700 500 Balance -1880 -360 -110 Lab Results - Last 24 hrs: Laboratory Results - last 24 hr 07/22/17 07/22/17 07/22/17 Range/Units 04:44 06:25 11:04 WBC (4.0-11.0) K/uL RBC (4.50-5.90) M/uL Hgb (13.0-17.0) g/dL Hct (38.0-50.0) % MCV (80.0-98.0) fL MCH (27.0-32.0) pg MCHC (31.0-37.0) g/dL RDW Std Deviation (28.0-62.0) fl RDW Coeff of Dania (11.0-15.0) % Plt Count (150-400) K/uL MPV (7.40-12.00) fL Neut % (Auto) (48.0-80.0) % Lymph % (Auto) (16.0-40.0) % [place] % (Auto) (0.0-15.0) % Eos % (Auto) (0.0-7.0) % Baso % (Auto) (0.0-1.5) % Neut # (Auto) (1.4-5.7) K/uL Lymph # (Auto) (0.6-2.4) K/uL [place] # (Auto) (0.0-0.8) K/uL Eos # (Auto) (0.0-0.7) K/uL Baso # (Auto) (0.0-0.1) K/uL Nucleated RBC % /100WBC Nucleated RBCs # K/uL Sodium (136-146) mmol/L Potassium (3.5-5.1) mmol/L Chloride (98-110) mmol/L Carbon Dioxide (21-31) mmol/L BUN (6.0-23.0) mg/dL Creatinine (0.6-1.5) mg/dL Est Cr Clr Drug Dosing mL/min Estimated GFR (MDRD) ml/min Glucose (60-110) mg/dL POC Glucose 195 H 224 H 286 H (60-110) mg/dL Calcium (8.8-10.8) mg/dL 07/22/17 07/22/17 07/22/17 Range/Units 16:04 17:40 20:37 WBC (4.0-11.0) K/uL RBC (4.50-5.90) M/uL Hgb (13.0-17.0) g/dL Hct (38.0-50.0) % MCV (80.0-98.0) fL MCH (27.0-32.0) pg MCHC (31.0-37.0) g/dL RDW Std Deviation (28.0-62.0) fl RDW Coeff of Dania (11.0-15.0) % Plt Count (150-400) K/uL MPV (7.40-12.00) fL Neut % (Auto) (48.0-80.0) % Lymph % (Auto) (16.0-40.0) % [place] % (Auto) (0.0-15.0) % Eos % (Auto) (0.0-7.0) % Baso % (Auto) (0.0-1.5) % Neut # (Auto) (1.4-5.7) K/uL Lymph # (Auto) (0.6-2.4) K/uL [place] # (Auto) (0.0-0.8) K/uL Eos # (Auto) (0.0-0.7) K/uL Baso # (Auto) (0.0-0.1) K/uL Nucleated RBC % /100WBC Nucleated RBCs # K/uL Sodium (136-146) mmol/L Potassium (3.5-5.1) mmol/L Chloride (98-110) mmol/L Carbon Dioxide (21-31) mmol/L BUN (6.0-23.0) mg/dL Creatinine (0.6-1.5) mg/dL Est Cr Clr Drug Dosing mL/min Estimated GFR (MDRD) ml/min Glucose (60-110) mg/dL POC Glucose 178 H 256 H 179 H (60-110) mg/dL Calcium (8.8-10.8) mg/dL 07/23/17 07/23/17 Range/Units 04:40 04:40 WBC 12.30 H (4.0-11.0) K/uL RBC 4.07 L (4.50-5.90) M/uL Hgb 8.7 L (13.0-17.0) g/dL Hct 27.7 L (38.0-50.0) % MCV 68.1 L (80.0-98.0) fL MCH 21.4 L (27.0-32.0) pg MCHC 31.4 (31.0-37.0) g/dL RDW Std Deviation 40.8 (28.0-62.0) fl RDW Coeff of Dania 17 H (11.0-15.0) % Plt Count 341 (150-400) K/uL MPV 10.30 (7.40-12.00) fL Neut % (Auto) 72.6 (48.0-80.0) % Lymph % (Auto) 16.7 (16.0-40.0) % [place] % (Auto) 8.9 (0.0-15.0) % Eos % (Auto) 1.5 (0.0-7.0) % Baso % (Auto) 0.3 (0.0-1.5) % Neut # (Auto) 8.9 H (1.4-5.7) K/uL Lymph # (Auto) 2.1 (0.6-2.4) K/uL [place] # (Auto) 1.1 H (0.0-0.8) K/uL Eos # (Auto) 0.2 (0.0-0.7) K/uL Baso # (Auto) 0.0 (0.0-0.1) K/uL Nucleated RBC % 0.0 /100WBC Nucleated RBCs # 0 K/uL Sodium 136 (136-146) mmol/L Potassium 4.8 (3.5-5.1) mmol/L Chloride 105 (98-110) mmol/L Carbon Dioxide 25 (21-31) mmol/L BUN 26 H (6.0-23.0) mg/dL Creatinine 1.5 (0.6-1.5) mg/dL Est Cr Clr Drug Dosing 61.98 mL/min Estimated GFR (MDRD) > 60.0 ml/min Glucose 285 H (60-110) mg/dL POC Glucose (60-110) mg/dL Calcium 8.3 L (8.8-10.8) mg/dL Med Orders - Current: Current Medications Acetaminophen (Tylenol) 650 mg PO Q6H PRN PRN Reason: Pain (mild 1-3) Last Admin: 07/22/17 18:02 Dose: 650 mg Albuterol/Ipratropium (Duoneb 3.0-0.5 Mg/3 Ml) 3 ml NEB Q4HRRT PRN PRN Reason: Shortness of Breath Enalapril Maleate (Vasotec) 20 mg PO BEDTIME [facility] Last Admin: 07/22/17 18:29 Dose: 20 mg Levofloxacin/Dextrose 750 mg/ (Premix) 150 mls @ 100 mls/hr IV Q24H [facility] Last Admin: 07/23/17 08:49 Dose: 100 mls/hr Insulin Aspart (Novolog) 0 unit SUBCUT ACBED [facility] PRN Reason: Protocol Last Admin: 07/23/17 07:40 Dose: 8 unit Morphine Sulfate (Morphine) 2 mg IVPUSH Q4H PRN PRN Reason: Pain (severe 7-10) Last Admin: 07/22/17 11:33 Dose: 2 mg Omeprazole (Omeprazole) 20 mg PO ACBREAKFAST [facility] Last Admin: 07/23/17 09:21 Dose: Not Given Ondansetron HCl (Zofran) 4 mg IVPUSH Q4H PRN PRN Reason: Nausea Last Admin: 07/22/17 17:59 Dose: 4 mg Patient Own Medication (Ptom) 1 each PO DAILY [facility] Sodium Chloride (Saline Flush) 10 ml FLUSH ASDIRECTED PRN PRN Reason: Keep Vein Open Sodium Chloride (Saline Flush) 2.5 ml FLUSH ASDIRECTED PRN PRN Reason: Keep Vein Open Discontinued Medications Albuterol/Ipratropium (Duoneb 3.0-0.5 Mg/3 Ml) 3 ml NEB STAT STA Stop: 07/22/17 01:03 Last Admin: 07/22/17 01:15 Dose: 3 ml Enalapril Maleate (Vasotec) 20 mg PO BEDTIME [facility] Last Admin: 07/22/17 20:17 Dose: Not Given Enoxaparin Sodium (Lovenox) 100 mg SUBCUT NOW STA Stop: 07/22/17 03:17 Last Admin: 07/22/17 03:23 Dose: 100 mg Furosemide (Lasix) 40 mg IVPUSH NOW ONE Stop: 07/22/17 11:57 Last Admin: 07/22/17 12:08 Dose: 40 mg Hydralazine HCl (Apresoline) 10 mg IVPUSH ONETIME ONE Stop: 07/23/17 08:02 Last Admin: 07/23/17 08:48 Dose: 10 mg Levofloxacin/Dextrose 750 mg/ (Premix) 150 mls @ 100 mls/hr IV ONETIME ONE Stop: 07/22/17 03:12 Last Admin: 07/22/17 01:49 Dose: 100 mls/hr Sodium Chloride (Normal Saline) 1,000 mls @ 999 mls/hr IV .BOLUS ONE Stop: 07/22/17 03:23 Last Admin: 07/22/17 02:25 Dose: 999 mls/hr Metoprolol Tartrate (Lopressor) 2.5 mg IVPUSH ONETIME ONE Stop: 07/22/17 11:27 Last Admin: 07/22/17 11:36 Dose: 2.5 mg Ramipril 1.25 Mg 1 each PO BEDTIME MICHAEL *Q Meaningful Use (DIS) - VTE *Q VTE Criteria *Q: - Stroke *Q Stroke Criteria *Q: - AMI *Q AMI Criteria *Q: <Santana Gilbert - Last Filed: 07/23/17 15:43> Discharge Summary - Hospital Course HPI Initial Comments: I performed a history and physical examination of the patient and I have discussed the management with the resident. I have reviewed the residents note and agree with the documented findings and plan of care - Patient Data Vitals - Most Recent: Last Vital Signs Temp 36.8 C 07/23/17 07:15 Pulse 107 H 07/23/17 07:15 Resp 15 07/23/17 07:15 BP 186/102 H 07/23/17 11:08 Pulse Ox 94 L 07/23/17 07:15 I&O - Last 24 hours: Intake & Output 07/23/17 07/23/17 07/23/17 06:59 14:59 22:59 Intake Total 340 390 Output Total 700 500 Balance -360 -110 Lab Results - Last 24 hrs: Laboratory Results - last 24 hr 07/22/17 07/22/17 07/22/17 Range/Units 04:44 06:25 11:04 WBC (4.0-11.0) K/uL RBC (4.50-5.90) M/uL Hgb (13.0-17.0) g/dL Hct (38.0-50.0) % MCV (80.0-98.0) fL MCH (27.0-32.0) pg MCHC (31.0-37.0) g/dL RDW Std Deviation (28.0-62.0) fl RDW Coeff of Dania (11.0-15.0) % Plt Count (150-400) K/uL MPV (7.40-12.00) fL Neut % (Auto) (48.0-80.0) % Lymph % (Auto) (16.0-40.0) % [place] % (Auto) (0.0-15.0) % Eos % (Auto) (0.0-7.0) % Baso % (Auto) (0.0-1.5) % Neut # (Auto) (1.4-5.7) K/uL Lymph # (Auto) (0.6-2.4) K/uL [place] # (Auto) (0.0-0.8) K/uL Eos # (Auto) (0.0-0.7) K/uL Baso # (Auto) (0.0-0.1) K/uL Nucleated RBC % /100WBC Nucleated RBCs # K/uL Sodium (136-146) mmol/L Potassium (3.5-5.1) mmol/L Chloride (98-110) mmol/L Carbon Dioxide (21-31) mmol/L BUN (6.0-23.0) mg/dL Creatinine (0.6-1.5) mg/dL Est Cr Clr Drug Dosing mL/min Estimated GFR (MDRD) ml/min Glucose (60-110) mg/dL POC Glucose 195 H 224 H 286 H (60-110) mg/dL Calcium (8.8-10.8) mg/dL 07/22/17 07/22/17 07/22/17 Range/Units 16:04 17:40 20:37 WBC (4.0-11.0) K/uL RBC (4.50-5.90) M/uL Hgb (13.0-17.0) g/dL Hct (38.0-50.0) % MCV (80.0-98.0) fL MCH (27.0-32.0) pg MCHC (31.0-37.0) g/dL RDW Std Deviation (28.0-62.0) fl RDW Coeff of Dania (11.0-15.0) % Plt Count (150-400) K/uL MPV (7.40-12.00) fL Neut % (Auto) (48.0-80.0) % Lymph % (Auto) (16.0-40.0) % [place] % (Auto) (0.0-15.0) % Eos % (Auto) (0.0-7.0) % Baso % (Auto) (0.0-1.5) % Neut # (Auto) (1.4-5.7) K/uL Lymph # (Auto) (0.6-2.4) K/uL [place] # (Auto) (0.0-0.8) K/uL Eos # (Auto) (0.0-0.7) K/uL Baso # (Auto) (0.0-0.1) K/uL Nucleated RBC % /100WBC Nucleated RBCs # K/uL Sodium (136-146) mmol/L Potassium (3.5-5.1) mmol/L Chloride (98-110) mmol/L Carbon Dioxide (21-31) mmol/L BUN (6.0-23.0) mg/dL Creatinine (0.6-1.5) mg/dL Est Cr Clr Drug Dosing mL/min Estimated GFR (MDRD) ml/min Glucose (60-110) mg/dL POC Glucose 178 H 256 H 179 H (60-110) mg/dL Calcium (8.8-10.8) mg/dL 07/23/17 07/23/17 07/23/17 Range/Units 04:40 04:40 07:01 WBC 12.30 H (4.0-11.0) K/uL RBC 4.07 L (4.50-5.90) M/uL Hgb 8.7 L (13.0-17.0) g/dL Hct 27.7 L (38.0-50.0) % MCV 68.1 L (80.0-98.0) fL MCH 21.4 L (27.0-32.0) pg MCHC 31.4 (31.0-37.0) g/dL RDW Std Deviation 40.8 (28.0-62.0) fl RDW Coeff of Dania 17 H (11.0-15.0) % Plt Count 341 (150-400) K/uL MPV 10.30 (7.40-12.00) fL Neut % (Auto) 72.6 (48.0-80.0) % Lymph % (Auto) 16.7 (16.0-40.0) % [place] % (Auto) 8.9 (0.0-15.0) % Eos % (Auto) 1.5 (0.0-7.0) % Baso % (Auto) 0.3 (0.0-1.5) % Neut # (Auto) 8.9 H (1.4-5.7) K/uL Lymph # (Auto) 2.1 (0.6-2.4) K/uL [place] # (Auto) 1.1 H (0.0-0.8) K/uL Eos # (Auto) 0.2 (0.0-0.7) K/uL Baso # (Auto) 0.0 (0.0-0.1) K/uL Nucleated RBC % 0.0 /100WBC Nucleated RBCs # 0 K/uL Sodium 136 (136-146) mmol/L Potassium 4.8 (3.5-5.1) mmol/L Chloride 105 (98-110) mmol/L Carbon Dioxide 25 (21-31) mmol/L BUN 26 H (6.0-23.0) mg/dL Creatinine 1.5 (0.6-1.5) mg/dL Est Cr Clr Drug Dosing 61.98 mL/min Estimated GFR (MDRD) > 60.0 ml/min Glucose 285 H (60-110) mg/dL POC Glucose 304 H (60-110) mg/dL Calcium 8.3 L (8.8-10.8) mg/dL Med Orders - Current: Current Medications Discontinued Medications Acetaminophen (Tylenol) 650 mg PO Q6H PRN PRN Reason: Pain (mild 1-3) Last Admin: 07/22/17 18:02 Dose: 650 mg Albuterol/Ipratropium (Duoneb 3.0-0.5 Mg/3 Ml) 3 ml NEB STAT STA Stop: 07/22/17 01:03 Last Admin: 07/22/17 01:15 Dose: 3 ml Albuterol/Ipratropium (Duoneb 3.0-0.5 Mg/3 Ml) 3 ml NEB Q4HRRT PRN PRN Reason: Shortness of Breath Enalapril Maleate (Vasotec) 20 mg PO BEDTIME [facility] Last Admin: 07/22/17 20:17 Dose: Not Given Enalapril Maleate (Vasotec) 20 mg PO BEDTIME [facility] Last Admin: 07/22/17 18:29 Dose: 20 mg Enoxaparin Sodium (Lovenox) 100 mg SUBCUT NOW STA Stop: 07/22/17 03:17 Last Admin: 07/22/17 03:23 Dose: 100 mg Furosemide (Lasix) 40 mg IVPUSH NOW ONE Stop: 07/22/17 11:57 Last Admin: 07/22/17 12:08 Dose: 40 mg Hydralazine HCl (Apresoline) 10 mg IVPUSH ONETIME ONE Stop: 07/23/17 08:02 Last Admin: 07/23/17 08:48 Dose: 10 mg Levofloxacin/Dextrose 750 mg/ (Premix) 150 mls @ 100 mls/hr IV ONETIME ONE Stop: 07/22/17 03:12 Last Admin: 07/22/17 01:49 Dose: 100 mls/hr Sodium Chloride (Normal Saline) 1,000 mls @ 999 mls/hr IV .BOLUS ONE Stop: 07/22/17 03:23 Last Admin: 07/22/17 02:25 Dose: 999 mls/hr Levofloxacin/Dextrose 750 mg/ (Premix) 150 mls @ 100 mls/hr IV Q24H MICHAEL Last Admin: 07/23/17 08:49 Dose: 100 mls/hr Insulin Aspart (Novolog) 0 unit SUBCUT ACBED [facility] PRN Reason: Protocol Last Admin: 07/23/17 07:40 Dose: 8 unit Metoprolol Tartrate (Lopressor) 2.5 mg IVPUSH ONETIME ONE Stop: 07/22/17 11:27 Last Admin: 07/22/17 11:36 Dose: 2.5 mg Morphine Sulfate (Morphine) 2 mg IVPUSH Q4H PRN PRN Reason: Pain (severe 7-10) Last Admin: 07/22/17 11:33 Dose: 2 mg Omeprazole (Omeprazole) 20 mg PO ACBREAKFAST [facility] Last Admin: 07/23/17 09:21 Dose: Not Given Ondansetron HCl (Zofran) 4 mg IVPUSH Q4H PRN PRN Reason: Nausea Last Admin: 07/22/17 17:59 Dose: 4 mg Ramipril 1.25 Mg 1 each PO BEDTIME [facility] Patient Own Medication (Ptom) 1 each PO DAILY [facility] Sodium Chloride (Saline Flush) 10 ml FLUSH ASDIRECTED PRN PRN Reason: Keep Vein Open Sodium Chloride (Saline Flush) 2.5 ml FLUSH ASDIRECTED PRN PRN Reason: Keep Vein Open *Q Meaningful Use (DIS) - VTE *Q VTE Criteria *Q: - Stroke *Q Stroke Criteria *Q: - AMI *Q AMI Criteria *Q:
--- NOTE | 2017-07-24 16:16 | ECHO ---
The echocardiogram report can be seen in this patient's EMR (electronic medical record) in the Reports section. This report has also been scanned into PACS and can be seen there. [facility]
== END 2017-07-23 11:18 | disposition home or self-care (01) ==
LOC: MW.ED 00:54 → MW.MS 02:27 → INTOOBSV 02:27 → UNDOADMOB 02:27 → MW.MS 03:33
PROVIDERS: ADMIT Internal Medicine; ATTEND Internal Medicine
DX: J84.9 Interstitial pulmonary disease, unspecified (principal); R94.5 Abnormal results of liver function studies; I10 Essential (primary) hypertension; E10.621 Type 1 diabetes mellitus with foot ulcer; K29.70 Gastritis, unspecified, without bleeding; K44.9 Diaphragmatic hernia without obstruction or gangrene; F17.210 Nicotine dependence, cigarettes, uncomplicated; D64.9 Anemia, unspecified; Z79.4 Long term (current) use of insulin; Z79.899 Other long term (current) drug therapy
CPT/HCPCS: 36415; 71010; 78582; 80048; 80053; 82962; 83880; 84484; 85025; 85379; 85610; 87040; 93005; 93306; 96361; 96365; 96366; 96372; 96375; 96376; 99285; A9270; G0378; J0360; J1650; J1815; J1940; J1956; J2270; J2405; J7040; 99283

== ENCOUNTER 2017-08-04 12:38 | Emergency (ER) | payer BC ==
[2017-08-04] MEDS ORDERED: Ondansetron 4 MG/2 ML SDV IVPUSH ONE ×2 (12:44→13:54)
[2017-08-04] MEDS ORDERED: Sodium Chloride 0.9% 1,000 ML IV ONE ×3 (12:44→14:09)
--- NOTE | 2017-08-04 13:10 | EDM.PDOC ---
ED HPI GENERAL MEDICAL PROBLEM - General Chief Complaint: Abdominal Pain Stated Complaint: THROWING UP Time Seen by Provider: 08/04/17 13:05 Source of Information: Reports: Patient History Limitations: Reports: No Limitations - History of Present Illness INITIAL COMMENTS - FREE TEXT/NARRATIVE: HISTORY AND PHYSICAL: []32-year-old black male presenting with abdominal pain and vomiting. patient is known to emergency department personnel. He is a type I diabetic. History of Present Illness: []Patient has been seen Dr. Leger and had appointment today with another provider. Patient became sick today has been vomiting at least 10 times. Difficult to answer questions she just states he does not recall when asked what his last blood sugar was and when he took it Review of Systems: As per history of present illness and below otherwise all systems reviewed and negative. Past medical history: As per history of present illness and as reviewed below otherwise noncontributory. Surgical history: As per history of present illness and as reviewed below otherwise noncontributory. Social history: No reported history of drug or alcohol abuse. Family history: As per history of present illness and as reviewed below otherwise noncontributory. Physical exam: Alert male somewhat lethargic is able to follow direction and answer my questions. Skin is warm and dry HEENT: Atraumatic, normocehpalic, pupils reactive, negative for conjunctival pallor or scleral icterus, mucous membranes moist, throat clear, neck supple, nontender, trachea midline. Lungs: Clear to auscultation, breath sounds equal bilaterally, chest non tender. Heart: S1S2, regular, negative for clicks, rubs, or JVD. Abdomen: Soft, nondistended, nontender. Negative for masses or hepatossplenmegaly. Negative for costovertebral tenderness. Pelvis: Stable nontender. Genitourinary: Deferred. Rectal: Deferred Extremities: Atraumatic, negative for cords or calf pain. Neurovascular unremarkable. Neuro: Awake, alert, oriented. Cranial nerves II through XII unremarkable. Cerebellum unremarkable. Motor and sensory unremarkable throughout. Exam nonfocal. Improved with blood pressure after 1-1/2 L of fluid. Patient up to the bathroom 2 clear urine. Patient has been resting awakened to take vitals. When awakened complains of his abdominal pain. Patient has improved with chin half liters of fluid. IV Zofran. And Phenergan. Blood sugars have reduced to 260. Diagnostics: [CBC CMP TSH ABGs chest x-ray] Therapeutics: [Normal saline Zofran 8 mg IV] Phenergan 25mg IM Impression: [Dehydration Nausea and vomiting Elevated blood sugar] Plan: [Discharged to home Take your insulin as directed See Dr. Jo, tomorrow for follow-up care] Zofran 4 mg ODT 3 times a day when necessary nausea Definitive disposition and diagnosis as appropriate pending reevaluation and review of above. Onset: Today, Sudden Duration: Hour(s): Location: Reports: Abdomen, Generalized Quality: Reports: Same as Previous Episode Abdominal Pain Score (Numeric/FACES): 8 - Related Data Allergies Allergy/AdvReac Type Severity Reaction Status Date / Time shrimp Allergy Severe Other Verified 08/04/17 13:00 iodine Allergy Unknown Anaphylactic Verified 08/04/17 13:00 Shock Penicillins Allergy Unknown Anaphylactic Verified 08/04/17 13:00 Shock gluten Allergy Unknown Muscle Uncoded 08/04/17 13:00 Aches Home Meds: Home Meds Insulin Glarg,Human.Rec.Analog [LantUS Solostar] 42 units SQ BEDTIME 07/15/17 [ History] Omeprazole Magnesium [Prilosec Otc] 20 mg PO DAILY 07/15/17 [History] Enalapril [Vasotec] 20 mg PO BEDTIME 30 Days #30 tablet 07/23/17 [Rx] Insulin Aspart [NovoLOG] 4 unit SUBCUT ASDIRECTED #0 07/23/17 [Rx] Levofloxacin 750 mg PO DAILY 4 Days #4 tablet 07/23/17 [Rx] Past Medical History - Past Health History Medical/Surgical History: Denies Medical/Surgical History HEENT History: Reports: Impaired Vision Cardiovascular History: Reports: Hypertension Respiratory History: Reports: None Gastrointestinal History: Reports: Gastritis, GERD, Hiatal Hernia, Other (See Below) Other Gastrointestinal History: h/o gastric ulcers, h/o hiatal hernia Genitourinary History: Reports: Chronic Renal Insuffiency Musculoskeletal History: Reports: None Neurological History: Reports: None Psychiatric History: Reports: Anxiety Endocrine/Metabolic History: Reports: Diabetes, Type I, Other (See Below) Hematologic History: Reports: Anemia Immunologic History: Reports: None Oncologic (Cancer) History: Reports: None Dermatologic History: Reports: None, Other (See Below) Other Dermatologic History: diabetic foot ulcer - Infectious Disease History Infectious Disease History: Reports: Chicken Pox Other Infectious Disease History: 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 - Past Surgical History Head Surgeries/Procedures: Reports: None HEENT Surgical History: Reports: None Cardiovascular Surgical History: Reports: None Respiratory Surgical History: Reports: None GI Surgical History: Reports: EGD Male Surgical History: Reports: None Endocrine Surgical History: Reports: None Dermatological Surgical History: Reports: None Social & Family History - Family History Family Medical History: Noncontributory Cardiac: Reports: High Cholesterol, Hypertension OBGYN: Reports: Neurological: Reports: None - Tobacco Use Smoking Status *Q: Current Every Day Smoker Years of Tobacco use: 10 Packs/Tins Daily: 0.5 Used Tobacco, but Quit: No Month Tobacco Last Used: smokes "acouple" cigarettes per day Second Hand Smoke Exposure: Yes - Caffeine Use Caffeine Use: Reports: Coffee, Energy Drinks - Alcohol Use Days Per Week of Alcohol Use: 0 Number of Drinks Per Day: 0 Total Drinks Per Week: 0 - Recreational Drug Use Recreational Drug Use: No Drug Use in Last 12 Months: No Recreational Drug Type: Reports: Marijuana/Hashish Recreational Drug Use Frequency: Socially ED ROS GENERAL - Review of Systems Review Of Systems: ROS reveals no pertinent complaints other than HPI. ED EXAM, GI/ABD - Physical Exam Exam: See Below (see dictation) Course - Vital Signs Last Recorded V/S: Last Vital Signs Temp 36.7 C 08/04/17 13:09 Pulse 109 H 08/04/17 13:55 Resp 28 H 08/04/17 13:55 BP 208/106 H 08/04/17 13:55 Pulse Ox 95 08/04/17 13:55 - Orders/Labs/Meds Orders: Active Orders 24 hr Category Date Time Status EKG Documentation Completion [RC] STAT Care 08/04/17 12:43 Active Sodium Chloride 0.9% [Saline Flush] Med 08/04/17 12:42 Active 10 ml FLUSH ASDIRECTED PRN Sodium Chloride 0.9% [Saline Flush] Med 08/04/17 13:50 Active 10 ml FLUSH ASDIRECTED PRN Sodium Chloride 0.9% [Saline Flush] Med 08/04/17 12:42 Active 2.5 ml FLUSH ASDIRECTED PRN Sodium Chloride 0.9% [Saline Flush] Med 08/04/17 13:50 Active 2.5 ml FLUSH ASDIRECTED PRN Saline Lock Insert [OM.PC] Stat Oth 08/04/17 12:43 Ordered Saline Lock Insert [OM.PC] Stat Oth 08/04/17 13:50 Ordered Medication Orders Sodium Chloride (Saline Flush) 10 ml FLUSH ASDIRECTED PRN PRN Reason: Keep Vein Open Last Admin: 08/04/17 15:12 Dose: 10 ml Admin: 08/04/17 13:16 Dose: 10 ml Sodium Chloride (Saline Flush) 2.5 ml FLUSH ASDIRECTED PRN PRN Reason: Keep Vein Open Last Admin: 08/04/17 15:12 Dose: 2.5 ml Admin: 08/04/17 13:16 Dose: 2.5 ml Sodium Chloride (Saline Flush) 10 ml FLUSH ASDIRECTED PRN PRN Reason: Keep Vein Open Last Admin: 08/04/17 15:13 Dose: 10 ml Sodium Chloride (Saline Flush) 2.5 ml FLUSH ASDIRECTED PRN PRN Reason: Keep Vein Open Last Admin: 08/04/17 15:13 Dose: 2.5 ml Labs: Laboratory Tests 08/04/17 08/04/17 08/04/17 Range/Units 12:55 12:55 12:55 WBC 13.69 H (4.0-11.0) K/uL RBC 4.94 (4.50-5.90) M/uL Hgb 10.8 L (13.0-17.0) g/dL Hct 33.6 L (38.0-50.0) % MCV 68.0 L (80.0-98.0) fL MCH 21.9 L (27.0-32.0) pg MCHC 32.1 (31.0-37.0) g/dL RDW Std Deviation 40.9 (28.0-62.0) fl RDW Coeff of Dania 17 H (11.0-15.0) % Plt Count 486 H (150-400) K/uL MPV 9.60 (7.40-12.00) fL Neut % (Auto) 79.9 (48.0-80.0) % Lymph % (Auto) 16.8 (16.0-40.0) % [place] % (Auto) 2.9 (0.0-15.0) % Eos % (Auto) 0.2 (0.0-7.0) % Baso % (Auto) 0.2 (0.0-1.5) % Neut # (Auto) 10.9 H (1.4-5.7) K/uL Lymph # (Auto) 2.3 (0.6-2.4) K/uL [place] # (Auto) 0.4 (0.0-0.8) K/uL Eos # (Auto) 0.0 (0.0-0.7) K/uL Baso # (Auto) 0.0 (0.0-0.1) K/uL Nucleated RBC % 0.0 /100WBC Nucleated RBCs # 0 K/uL ABG pH (7.35-7.45) ABG pCO2 (35-45) mmHG ABG pO2 (75-100) mmHG ABG HCO3 (22-26) mEq/L ABG Total CO2 ABG Base Excess (-2.0-2.0) Lactate 3.3 H (0.20-2.00) mmol/L Sodium 140 (136-146) mmol/L Potassium 4.6 (3.5-5.1) mmol/L Chloride 109 (98-110) mmol/L Carbon Dioxide 25 (21-31) mmol/L BUN 32 H (6.0-23.0) mg/dL Creatinine 1.7 H (0.6-1.5) mg/dL Est Cr Clr Drug Dosing 62.96 mL/min Estimated GFR (MDRD) 57.3 ml/min Glucose 382 H (60-110) mg/dL POC Glucose (60-110) mg/dL Calcium 9.5 (8.8-10.8) mg/dL Total Bilirubin 0.3 (0.1-1.5) mg/dL AST 32 (5-40) IU/L ALT 41 (8-54) IU/L Alkaline Phosphatase 149 (40-150) Ammonia (14-68) UG/DL Troponin I < 0.10 (0.0-0.29) NG/ML B-Natriuretic Peptide (<100) PG/ML Total Protein 8.0 (6.0-8.0) g/dL Albumin 3.4 L (3.5-5.0) g/dL Globulin 4.6 H (2.0-3.5) g/dL Albumin/Globulin Ratio 0.7 L (1.3-2.8) Amylase 64 (10-90) U/L Lipase < 9 (7-80) U/L Urine Color Urine Appearance Urine pH (5.0-8.0) Ur Specific [place] (1.001-1.035) Urine Protein (NEGATIVE) mg/dL Urine Glucose (UA) (NEGATIVE) mg/dL Urine Ketones (NEGATIVE) mg/dL Urine Occult Blood (NEGATIVE) Urine Nitrite (NEGATIVE) Urine Bilirubin (NEGATIVE) Urine Urobilinogen (<2.0) EU/dL Ur Leukocyte Esterase (NEGATIVE) Urine RBC (0-2/HPF) Urine WBC (0-5/HPF) Ur Epithelial Cells (NONE-FEW) Urine Bacteria (NEGATIVE) 08/04/17 08/04/17 08/04/17 Range/Units 12:55 12:55 13:20 WBC (4.0-11.0) K/uL RBC (4.50-5.90) M/uL Hgb (13.0-17.0) g/dL Hct (38.0-50.0) % MCV (80.0-98.0) fL MCH (27.0-32.0) pg MCHC (31.0-37.0) g/dL RDW Std Deviation (28.0-62.0) fl RDW Coeff of Dania (11.0-15.0) % Plt Count (150-400) K/uL MPV (7.40-12.00) fL Neut % (Auto) (48.0-80.0) % Lymph % (Auto) (16.0-40.0) % [place] % (Auto) (0.0-15.0) % Eos % (Auto) (0.0-7.0) % Baso % (Auto) (0.0-1.5) % Neut # (Auto) (1.4-5.7) K/uL Lymph # (Auto) (0.6-2.4) K/uL [place] # (Auto) (0.0-0.8) K/uL Eos # (Auto) (0.0-0.7) K/uL Baso # (Auto) (0.0-0.1) K/uL Nucleated RBC % /100WBC Nucleated RBCs # K/uL ABG pH 7.468 H (7.35-7.45) ABG pCO2 38 (35-45) mmHG ABG pO2 64 L (75-100) mmHG ABG HCO3 28 H (22-26) mEq/L ABG Total CO2 25.8 ABG Base Excess 3.7 H (-2.0-2.0) Lactate (0.20-2.00) mmol/L Sodium (136-146) mmol/L Potassium (3.5-5.1) mmol/L Chloride (98-110) mmol/L Carbon Dioxide (21-31) mmol/L BUN (6.0-23.0) mg/dL Creatinine (0.6-1.5) mg/dL Est Cr Clr Drug Dosing mL/min Estimated GFR (MDRD) ml/min Glucose (60-110) mg/dL POC Glucose (60-110) mg/dL Calcium (8.8-10.8) mg/dL Total Bilirubin (0.1-1.5) mg/dL AST (5-40) IU/L ALT (8-54) IU/L Alkaline Phosphatase (40-150) Ammonia 45 (14-68) UG/DL Troponin I (0.0-0.29) NG/ML B-Natriuretic Peptide 64 (<100) PG/ML Total Protein (6.0-8.0) g/dL Albumin (3.5-5.0) g/dL Globulin (2.0-3.5) g/dL Albumin/Globulin Ratio (1.3-2.8) Amylase (10-90) U/L Lipase (7-80) U/L Urine Color Urine Appearance Urine pH (5.0-8.0) Ur Specific [place] (1.001-1.035) Urine Protein (NEGATIVE) mg/dL Urine Glucose (UA) (NEGATIVE) mg/dL Urine Ketones (NEGATIVE) mg/dL Urine Occult Blood (NEGATIVE) Urine Nitrite (NEGATIVE) Urine Bilirubin (NEGATIVE) Urine Urobilinogen (<2.0) EU/dL Ur Leukocyte Esterase (NEGATIVE) Urine RBC (0-2/HPF) Urine WBC (0-5/HPF) Ur Epithelial Cells (NONE-FEW) Urine Bacteria (NEGATIVE) 08/04/17 08/04/17 08/04/17 Range/Units 13:30 14:13 15:01 WBC (4.0-11.0) K/uL RBC (4.50-5.90) M/uL Hgb (13.0-17.0) g/dL Hct (38.0-50.0) % MCV (80.0-98.0) fL MCH (27.0-32.0) pg MCHC (31.0-37.0) g/dL RDW Std Deviation (28.0-62.0) fl RDW Coeff of [place]ia (11.0-15.0) % Plt Count (150-400) K/uL MPV (7.40-12.00) fL Neut % (Auto) (48.0-80.0) % Lymph % (Auto) (16.0-40.0) % [place] % (Auto) (0.0-15.0) % Eos % (Auto) (0.0-7.0) % Baso % (Auto) (0.0-1.5) % Neut # (Auto) (1.4-5.7) K/uL Lymph # (Auto) (0.6-2.4) K/uL [place] # (Auto) (0.0-0.8) K/uL Eos # (Auto) (0.0-0.7) K/uL Baso # (Auto) (0.0-0.1) K/uL Nucleated RBC % /100WBC Nucleated RBCs # K/uL ABG pH (7.35-7.45) ABG pCO2 (35-45) mmHG ABG pO2 (75-100) mmHG ABG HCO3 (22-26) mEq/L ABG Total CO2 ABG Base Excess (-2.0-2.0) Lactate (0.20-2.00) mmol/L Sodium (136-146) mmol/L Potassium (3.5-5.1) mmol/L Chloride (98-110) mmol/L Carbon Dioxide (21-31) mmol/L BUN (6.0-23.0) mg/dL Creatinine (0.6-1.5) mg/dL Est Cr Clr Drug Dosing mL/min Estimated GFR (MDRD) ml/min Glucose (60-110) mg/dL POC Glucose 401 H 412 H (60-110) mg/dL Calcium (8.8-10.8) mg/dL Total Bilirubin (0.1-1.5) mg/dL AST (5-40) IU/L ALT (8-54) IU/L Alkaline Phosphatase (40-150) Ammonia (14-68) UG/DL Troponin I (0.0-0.29) NG/ML B-Natriuretic Peptide (<100) PG/ML Total Protein (6.0-8.0) g/dL Albumin (3.5-5.0) g/dL Globulin (2.0-3.5) g/dL Albumin/Globulin Ratio (1.3-2.8) Amylase (10-90) U/L Lipase (7-80) U/L Urine Color YELLOW Urine Appearance SLT CLOUDY Urine pH 7.5 (5.0-8.0) Ur Specific [place] 1.015 (1.001-1.035) Urine Protein 100 (NEGATIVE) mg/dL Urine Glucose (UA) >=1000 (NEGATIVE) mg/dL Urine Ketones TRACE H (NEGATIVE) mg/dL Urine Occult Blood MODERATE (NEGATIVE) Urine Nitrite NEGATIVE (NEGATIVE) Urine Bilirubin NEGATIVE (NEGATIVE) Urine Urobilinogen 0.2 (<2.0) EU/dL Ur Leukocyte Esterase NEGATIVE (NEGATIVE) Urine RBC 8-10 (0-2/HPF) Urine WBC 4-6 (0-5/HPF) Ur Epithelial Cells OCCASIONAL (NONE-FEW) Urine Bacteria RARE (NEGATIVE) 08/04/17 Range/Units 15:43 WBC (4.0-11.0) K/uL RBC (4.50-5.90) M/uL Hgb (13.0-17.0) g/dL Hct (38.0-50.0) % MCV (80.0-98.0) fL MCH (27.0-32.0) pg MCHC (31.0-37.0) g/dL RDW Std Deviation (28.0-62.0) fl RDW Coeff of [place] (11.0-15.0) % Plt Count (150-400) K/uL MPV (7.40-12.00) fL Neut % (Auto) (48.0-80.0) % Lymph % (Auto) (16.0-40.0) % [place] % (Auto) (0.0-15.0) % Eos % (Auto) (0.0-7.0) % Baso % (Auto) (0.0-1.5) % Neut # (Auto) (1.4-5.7) K/uL Lymph # (Auto) (0.6-2.4) K/uL [place] # (Auto) (0.0-0.8) K/uL Eos # (Auto) (0.0-0.7) K/uL Baso # (Auto) (0.0-0.1) K/uL Nucleated RBC % /100WBC Nucleated RBCs # K/uL ABG pH (7.35-7.45) ABG pCO2 (35-45) mmHG ABG pO2 (75-100) mmHG ABG HCO3 (22-26) mEq/L ABG Total CO2 ABG Base Excess (-2.0-2.0) Lactate (0.20-2.00) mmol/L Sodium (136-146) mmol/L Potassium (3.5-5.1) mmol/L Chloride (98-110) mmol/L Carbon Dioxide (21-31) mmol/L BUN (6.0-23.0) mg/dL Creatinine (0.6-1.5) mg/dL Est Cr Clr Drug Dosing mL/min Estimated GFR (MDRD) ml/min Glucose (60-110) mg/dL POC Glucose 304 H (60-110) mg/dL Calcium (8.8-10.8) mg/dL Total Bilirubin (0.1-1.5) mg/dL AST (5-40) IU/L ALT (8-54) IU/L Alkaline Phosphatase (40-150) Ammonia (14-68) UG/DL Troponin I (0.0-0.29) NG/ML B-Natriuretic Peptide (<100) PG/ML Total Protein (6.0-8.0) g/dL Albumin (3.5-5.0) g/dL Globulin (2.0-3.5) g/dL Albumin/Globulin Ratio (1.3-2.8) Amylase (10-90) U/L Lipase (7-80) U/L Urine Color Urine Appearance Urine pH (5.0-8.0) Ur Specific [place] (1.001-1.035) Urine Protein (NEGATIVE) mg/dL Urine Glucose (UA) (NEGATIVE) mg/dL Urine Ketones (NEGATIVE) mg/dL Urine Occult Blood (NEGATIVE) Urine Nitrite (NEGATIVE) Urine Bilirubin (NEGATIVE) Urine Urobilinogen (<2.0) EU/dL Ur Leukocyte Esterase (NEGATIVE) Urine RBC (0-2/HPF) Urine WBC (0-5/HPF) Ur Epithelial Cells (NONE-FEW) Urine Bacteria (NEGATIVE) Meds: Medications Generic Name Dose Route Start Last Admin Trade Name Lynn PRN Reason Stop Dose Admin Sodium Chloride 10 ml 08/04/17 12:42 08/04/17 15:12 Saline Flush FLUSH 10 ml ASDIRECTED PRN Administration Keep Vein Open Sodium Chloride 2.5 ml 08/04/17 12:42 08/04/17 15:12 Saline Flush FLUSH 2.5 ml ASDIRECTED PRN Administration Keep Vein Open Sodium Chloride 10 ml 08/04/17 13:50 08/04/17 15:13 Saline Flush FLUSH 10 ml ASDIRECTED PRN Administration Keep Vein Open Sodium Chloride 2.5 ml 08/04/17 13:50 08/04/17 15:13 Saline Flush FLUSH 2.5 ml ASDIRECTED PRN Administration Keep Vein Open Discontinued Medications Generic Name Dose Route Start Last Admin Trade Name Lynn PRN Reason Stop Dose Admin Famotidine 20 mg 08/04/17 14:24 08/04/17 14:35 Pepcid IVPUSH 08/04/17 14:25 20 mg ONETIME ONE Administration Sodium Chloride 1,000 mls @ 999 mls/hr 08/04/17 12:44 08/04/17 13:14 Normal Saline IV 08/04/17 13:44 999 mls/hr STAT ONE Administration Sodium Chloride 1,000 mls @ 999 mls/hr 08/04/17 13:47 08/04/17 14:19 Normal Saline IV 08/04/17 14:47 999 mls/hr STAT ONE Administration Sodium Chloride 1,000 mls @ 999 mls/hr 08/04/17 14:09 08/04/17 14:33 Normal Saline IV 08/04/17 15:09 999 mls/hr STAT ONE Administration Insulin Human Regular 10 unit 08/04/17 14:11 08/04/17 14:38 Novolin R IVPUSH 08/04/17 14:12 10 unit ONETIME ONE Administration Protocol Insulin Human Regular 10 unit 08/04/17 15:02 08/04/17 15:06 Novolin R SUBCUT 08/04/17 15:03 10 units ONETIME ONE Administration Protocol Insulin Human Regular 10 unit 08/04/17 15:04 08/04/17 15:07 Novolin R IVPUSH 08/04/17 15:05 10 units ONETIME ONE Administration Protocol Ondansetron HCl 4 mg 08/04/17 12:44 08/04/17 13:15 Zofran IVPUSH 08/04/17 12:45 4 mg ONETIME ONE Administration Ondansetron HCl 4 mg 08/04/17 13:54 08/04/17 14:42 Zofran IVPUSH 08/04/17 13:55 4 mg ONETIME ONE Administration Promethazine HCl 25 mg 08/04/17 14:52 08/04/17 15:03 Phenergan IM 08/04/17 14:53 25 mg ONETIME ONE Administration Departure - Departure Time of Disposition: 16:19 Disposition: Home, Self-Care 01 Condition: Good Clinical Impression: Gastroenteritis, Hyperglycemia due to type 1 diabetes mellitus Vomiting Qualifiers: Vomiting type: unspecified Vomiting Intractability: non-intractable Nausea presence: with nausea Qualified Code(s): R11.2 - Nausea with vomiting, unspecified - Discharge Information Referrals: PCP,None [Primary Care Provider] - Forms: ED Department Discharge - My Orders Last 24 Hours: My Active Orders 08/04/17 12:42 Sodium Chloride 0.9% [Saline Flush] 10 ml FLUSH ASDIRECTED PRN Sodium Chloride 0.9% [Saline Flush] 2.5 ml FLUSH ASDIRECTED PRN 08/04/17 12:43 EKG Documentation Completion [RC] STAT Saline Lock Insert [OM.PC] Stat 08/04/17 13:50 Sodium Chloride 0.9% [Saline Flush] 10 ml FLUSH ASDIRECTED PRN Sodium Chloride 0.9% [Saline Flush] 2.5 ml FLUSH ASDIRECTED PRN Saline Lock Insert [OM.PC] Stat - Assessment/Plan Last 24 Hours: My Active Orders 08/04/17 12:42 Sodium Chloride 0.9% [Saline Flush] 10 ml FLUSH ASDIRECTED PRN Sodium Chloride 0.9% [Saline Flush] 2.5 ml FLUSH ASDIRECTED PRN 08/04/17 12:43 EKG Documentation Completion [RC] STAT Saline Lock Insert [OM.PC] Stat 08/04/17 13:50 Sodium Chloride 0.9% [Saline Flush] 10 ml FLUSH ASDIRECTED PRN Sodium Chloride 0.9% [Saline Flush] 2.5 ml FLUSH ASDIRECTED PRN Saline Lock Insert [OM.PC] Stat
[2017-08-04] MEDS: Sodium Chloride 0.9% 2.5 ML Syringe FLUSH PRN ×2 (13:16→15:12)
[2017-08-04] MEDS: Sodium Chloride 0.9% 10 ML Syringe FLUSH PRN ×2 (13:16→15:12)
[2017-08-04 13:41] LABS: CHLORIDE,CL 109 mmol/L (98-110)
[2017-08-04] MEDS ORDERED: Sodium Chloride 0.9% 10 ML Syringe FLUSH PRN (13:50)
[2017-08-04] MEDS ORDERED: Sodium Chloride 0.9% 2.5 ML Syringe FLUSH PRN (13:50)
[2017-08-04 13:51] LABS: SODIUM,NA 140 mmol/L (136-146)
--- NOTE | 2017-08-04 14:10 | CR ---
EXAMINATION: Two-view chest (PA and Lateral views). HISTORY: Shortness of breath. FINDINGS: The trachea is midline. The cardiomediastinal silhouette is within normal limits. No pulmonary infilt rates, effusions or pneumothorax. Osseous structures appear unremarkable. IMPRESSION: No acute cardiopulmonary process.
[2017-08-04] MEDS ORDERED: Insulin Regular, Human 100 Units/ML 10 ML Vial IVPUSH ONE ×2 (14:11→15:04)
[2017-08-04] MEDS ORDERED: Famotidine 20 MG/2 ML SDV IVPUSH ONE (14:24)
[2017-08-04] MEDS ORDERED: Promethazine 25 MG/ML SDV IM ONE (14:52)
[2017-08-04] MEDS ORDERED: Insulin Regular, Human 100 Units/ML 10 ML Vial SUBCUT ONE (15:02)
[2017-08-04] MEDS ORDERED: Labetalol 5 MG/ML 5 ML Syringe IVPUSH ONE (16:57)
[2017-08-04] MEDS: Labetalol 100 MG/20 ML MDV IVPUSH ONE ×2 (17:42→17:44)
[2017-08-04] MEDS ORDERED: Sodium Chloride 0.9% 1,000 ML IV SCH (18:00)
[2017-08-04 18:44] VITALS: BP 179/89
== END 2017-08-04 18:53 | disposition home or self-care (01) ==
LOC: MW.ED 12:38
DX: E10.43 Type 1 diabetes mellitus with diabetic autonomic (poly)neuropathy (principal); E10.65 Type 1 diabetes mellitus with hyperglycemia; K31.84 Gastroparesis; E86.0 Dehydration; K21.9 Gastro-esophageal reflux disease without esophagitis; I12.9 Hypertensive chronic kidney disease with stage 1 through stage 4 chronic kidney disease, or unspecified chronic kidney disease; E10.22 Type 1 diabetes mellitus with diabetic chronic kidney disease; N18.9 Chronic kidney disease, unspecified; K52.9 Noninfective gastroenteritis and colitis, unspecified; F17.210 Nicotine dependence, cigarettes, uncomplicated; Z79.4 Long term (current) use of insulin; Z79.899 Other long term (current) drug therapy; Z79.2 Long term (current) use of antibiotics; Z88.0 Allergy status to penicillin; Z91.018 Allergy to other foods; Z91.013 Allergy to seafood
CPT/HCPCS: 36415; 36600; 71020; 80053; 81001; 82140; 82150; 82803; 82962; 83605; 83690; 83880; 84484; 85025; 87804; 93005; 96361; 96372; 96374; 96375; 96376; 99284; J2405; J2550; J7040; 99283; J1815-GY

== ENCOUNTER 2017-08-04 23:30 | Emergency (ER) | payer BC, OTHER ==
[2017-08-04] MEDS ORDERED: Sodium Chloride 0.9% 1,000 ML IV ONE (23:35)
[2017-08-04] MEDS ORDERED: Ondansetron 4 MG/2 ML SDV IVPUSH ONE (23:35)
--- NOTE | 2017-08-04 23:38 | EDM.PDOC ---
ED HPI GENERAL MEDICAL PROBLEM - General Chief Complaint: Gastrointestinal Problem Stated Complaint: PT SICK Time Seen by Provider: 08/04/17 23:34 - History of Present Illness INITIAL COMMENTS - FREE TEXT/NARRATIVE: HISTORY AND PHYSICAL: History of present illness: Patient 32-year-old black male history diabetes presents with cervical hyperemesis he was seen in the ER earlier evaluated and treated and returns now with same he denies fever chills chest pain shortness breath or other concern he has noted his blood sugar be elevated in 300s Patient had several episodes of coffee-ground emesis in the emergency department Protonix 80 mg was ordered IV followed by an 8 mg per hour drip Review of systems: As per history of present illness and below otherwise all systems reviewed and negative. Past medical history: As per history of present illness and as reviewed below otherwise noncontributory. Surgical history: As per history of present illness and as reviewed below otherwise noncontributory. Social history: No reported history of drug or alcohol abuse. Family history: As per history of present illness and as reviewed below otherwise noncontributory. Physical exam: HEENT: Atraumatic, normocephalic, pupils reactive, negative for conjunctival pallor or scleral icterus, mucous membranes moist, throat clear, neck supple, nontender, trachea midline. Lungs: Clear to auscultation, breath sounds equal bilaterally, chest nontender. Heart: S1S2, regular, negative for clicks, rubs, or JVD. Abdomen: Soft, nondistended, nontender. Negative for masses or hepatosplenomegaly. Negative for costovertebral tenderness. Pelvis: Stable nontender. Genitourinary: Deferred. Rectal: Deferred. Extremities: Atraumatic, negative for cords or calf pain. Neurovascular unremarkable. Neuro: Awake, alert, oriented. Cranial nerves II through XII unremarkable. Cerebellum unremarkable. Motor and sensory unremarkable throughout. Exam nonfocal. Diagnostics: CBC CMP ABG UA urine drug screen chest x-ray lipase Therapeutics: saline 1 L bolus Zofran 4 mg IV Impression: #1 diabetes #2 hyperemesis #3 of her GI bleed Definitive disposition and diagnosis as appropriate pending reevaluation and review of above. Abdominal Pain Score (Numeric/FACES): 8 - Related Data Allergies Allergy/AdvReac Type Severity Reaction Status Date / Time shrimp Allergy Severe Other Verified 08/04/17 23:37 iodine Allergy Unknown Anaphylactic Verified 08/04/17 23:37 Shock Penicillins Allergy Unknown Anaphylactic Verified 08/04/17 23:37 Shock gluten Allergy Unknown Muscle Uncoded 08/04/17 13:00 Aches Home Meds: Home Meds Insulin Glarg,Human.Rec.Analog [LantUS Solostar] 42 units SQ BEDTIME 07/15/17 [ History] Omeprazole Magnesium [Prilosec Otc] 20 mg PO DAILY 07/15/17 [History] Enalapril [Vasotec] 20 mg PO BEDTIME 30 Days #30 tablet 07/23/17 [Rx] Insulin Aspart [NovoLOG] 4 unit SUBCUT ASDIRECTED #0 07/23/17 [Rx] Levofloxacin 750 mg PO DAILY 4 Days #4 tablet 07/23/17 [Rx] Past Medical History - Past Health History Medical/Surgical History: Denies Medical/Surgical History HEENT History: Reports: Impaired Vision Cardiovascular History: Reports: Hypertension Respiratory History: Reports: None Gastrointestinal History: Reports: Gastritis, GERD, Hiatal Hernia, Other (See Below) Other Gastrointestinal History: h/o gastric ulcers, h/o hiatal hernia Genitourinary History: Reports: Chronic Renal Insuffiency Musculoskeletal History: Reports: None Neurological History: Reports: None Psychiatric History: Reports: Anxiety Endocrine/Metabolic History: Reports: Diabetes, Type I, Other (See Below) Hematologic History: Reports: Anemia Immunologic History: Reports: None Oncologic (Cancer) History: Reports: None Dermatologic History: Reports: None, Other (See Below) Other Dermatologic History: diabetic foot ulcer - Infectious Disease History Infectious Disease History: Reports: Chicken Pox Other Infectious Disease History: 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 - Past Surgical History Head Surgeries/Procedures: Reports: None HEENT Surgical History: Reports: None Cardiovascular Surgical History: Reports: None Respiratory Surgical History: Reports: None GI Surgical History: Reports: EGD Male Surgical History: Reports: None Endocrine Surgical History: Reports: None Dermatological Surgical History: Reports: None Social & Family History - Family History Family Medical History: Noncontributory Cardiac: Reports: High Cholesterol, Hypertension OBGYN: Reports: Neurological: Reports: None - Tobacco Use Smoking Status *Q: Current Every Day Smoker Years of Tobacco use: 10 Packs/Tins Daily: 0.5 Used Tobacco, but Quit: No Month Tobacco Last Used: smokes "acouple" cigarettes per day Second Hand Smoke Exposure: Yes - Caffeine Use Caffeine Use: Reports: Coffee, Energy Drinks - Alcohol Use Days Per Week of Alcohol Use: 0 Number of Drinks Per Day: 0 Total Drinks Per Week: 0 - Recreational Drug Use Recreational Drug Use: No Drug Use in Last 12 Months: No Recreational Drug Type: Reports: Marijuana/Hashish Recreational Drug Use Frequency: Socially ED ROS GENERAL - Review of Systems Review Of Systems: ROS reveals no pertinent complaints other than HPI. ED EXAM, GENERAL - Physical Exam Exam: See Below (See dictation) Course - Vital Signs Last Recorded V/S: Last Vital Signs Temp 36.9 C 08/05/17 04:10 Pulse 122 H 08/05/17 06:11 Resp 19 08/05/17 06:11 BP 200/102 H 08/05/17 06:11 Pulse Ox 97 08/05/17 06:11 - Orders/Labs/Meds Orders: Active Orders 24 hr Category Date Time Status Chest 1V Frontal [CR] Stat Exams 08/04/17 23:35 Taken Labs: Laboratory Tests 08/04/17 08/04/17 08/05/17 Range/Units 23:30 23:30 00:10 WBC 23.20 H (4.0-11.0) K/uL RBC 4.73 (4.50-5.90) M/uL Hgb 10.4 L (13.0-17.0) g/dL Hct 32.7 L (38.0-50.0) % MCV 69.1 L (80.0-98.0) fL MCH 22.0 L (27.0-32.0) pg MCHC 31.8 (31.0-37.0) g/dL RDW Std Deviation 43.2 (28.0-62.0) fl RDW Coeff of Dania 18 H (11.0-15.0) % Plt Count 478 H (150-400) K/uL MPV 10.30 (7.40-12.00) fL Neut % (Auto) 90.7 H (48.0-80.0) % Lymph % (Auto) 6.9 L (16.0-40.0) % [place] % (Auto) 2.3 (0.0-15.0) % Eos % (Auto) 0.0 (0.0-7.0) % Baso % (Auto) 0.1 (0.0-1.5) % Neut # (Auto) 21.0 H (1.4-5.7) K/uL Lymph # (Auto) 1.6 (0.6-2.4) K/uL [place] # (Auto) 0.5 (0.0-0.8) K/uL Eos # (Auto) 0.0 (0.0-0.7) K/uL Baso # (Auto) 0.0 (0.0-0.1) K/uL Nucleated RBC % 0.0 /100WBC Nucleated RBCs # 0 K/uL ABG pH (7.35-7.45) ABG pCO2 (35-45) mmHG ABG pO2 (75-100) mmHG ABG HCO3 (22-26) mEq/L ABG Total CO2 ABG Base Excess (-2.0-2.0) Sodium 142 (136-146) mmol/L Potassium 4.1 (3.5-5.1) mmol/L Chloride 106 (98-110) mmol/L Carbon Dioxide 20 L (21-31) mmol/L BUN 27 H (6.0-23.0) mg/dL Creatinine 1.9 H (0.6-1.5) mg/dL Est Cr Clr Drug Dosing 56.33 mL/min Estimated GFR (MDRD) 50.4 ml/min Glucose 460 H (60-110) mg/dL POC Glucose (60-110) mg/dL Calcium 8.8 (8.8-10.8) mg/dL Total Bilirubin 0.2 (0.1-1.5) mg/dL AST 37 (5-40) IU/L ALT 39 (8-54) IU/L Alkaline Phosphatase 134 (40-150) Total Protein 7.5 (6.0-8.0) g/dL Albumin 3.1 L (3.5-5.0) g/dL Globulin 4.4 H (2.0-3.5) g/dL Albumin/Globulin Ratio 0.7 L (1.3-2.8) Lipase < 9 (7-80) U/L Urine Color Urine Appearance Urine pH (5.0-8.0) Ur Specific [place] (1.001-1.035) Urine Protein (NEGATIVE) mg/dL Urine Glucose (UA) (NEGATIVE) mg/dL Urine Ketones (NEGATIVE) mg/dL Urine Occult Blood (NEGATIVE) Urine Nitrite (NEGATIVE) Urine Bilirubin (NEGATIVE) Urine Urobilinogen (<2.0) EU/dL Ur Leukocyte Esterase (NEGATIVE) Urine RBC (0-2/HPF) Urine WBC (0-5/HPF) Ur Epithelial Cells (NONE-FEW) Urine Bacteria (NEGATIVE) Urine Opiates Screen NEGATIVE (NEGATIVE) Ur Oxycodone Screen NEGATIVE (NEGATIVE) Urine Methadone Screen NEGATIVE (NEGATIVE) Ur Barbiturates Screen NEGATIVE (NEGATIVE) Ur Phencyclidine Scrn NEGATIVE (NEGATIVE) Ur Amphetamine Screen NEGATIVE (NEGATIVE) U Methamphetamines Scrn NEGATIVE (NEGATIVE) U Benzodiazepines Scrn NEGATIVE (NEGATIVE) U Cocaine Metab Screen NEGATIVE (NEGATIVE) U Marijuana (THC) Screen POSITIVE (NEGATIVE) 08/05/17 08/05/17 08/05/17 Range/Units 00:10 00:15 00:54 WBC (4.0-11.0) K/uL RBC (4.50-5.90) M/uL Hgb (13.0-17.0) g/dL Hct (38.0-50.0) % MCV (80.0-98.0) fL MCH (27.0-32.0) pg MCHC (31.0-37.0) g/dL RDW Std Deviation (28.0-62.0) fl RDW Coeff of Dania (11.0-15.0) % Plt Count (150-400) K/uL MPV (7.40-12.00) fL Neut % (Auto) (48.0-80.0) % Lymph % (Auto) (16.0-40.0) % [place] % (Auto) (0.0-15.0) % Eos % (Auto) (0.0-7.0) % Baso % (Auto) (0.0-1.5) % Neut # (Auto) (1.4-5.7) K/uL Lymph # (Auto) (0.6-2.4) K/uL [place] # (Auto) (0.0-0.8) K/uL Eos # (Auto) (0.0-0.7) K/uL Baso # (Auto) (0.0-0.1) K/uL Nucleated RBC % /100WBC Nucleated RBCs # K/uL ABG pH 7.382 (7.35-7.45) ABG pCO2 40 (35-45) mmHG ABG pO2 67 L (75-100) mmHG ABG HCO3 23 (22-26) mEq/L ABG Total CO2 21.6 ABG Base Excess -1.5 (-2.0-2.0) Sodium (136-146) mmol/L Potassium (3.5-5.1) mmol/L Chloride (98-110) mmol/L Carbon Dioxide (21-31) mmol/L BUN (6.0-23.0) mg/dL Creatinine (0.6-1.5) mg/dL Est Cr Clr Drug Dosing mL/min Estimated GFR (MDRD) ml/min Glucose (60-110) mg/dL POC Glucose 225 H (60-110) mg/dL Calcium (8.8-10.8) mg/dL Total Bilirubin (0.1-1.5) mg/dL AST (5-40) IU/L ALT (8-54) IU/L Alkaline Phosphatase (40-150) Total Protein (6.0-8.0) g/dL Albumin (3.5-5.0) g/dL Globulin (2.0-3.5) g/dL Albumin/Globulin Ratio (1.3-2.8) Lipase (7-80) U/L Urine Color YELLOW Urine Appearance SLT CLOUDY Urine pH 7.0 (5.0-8.0) Ur Specific [place] 1.020 (1.001-1.035) Urine Protein 100 (NEGATIVE) mg/dL Urine Glucose (UA) >=1000 (NEGATIVE) mg/dL Urine Ketones 15 H (NEGATIVE) mg/dL Urine Occult Blood MODERATE (NEGATIVE) Urine Nitrite NEGATIVE (NEGATIVE) Urine Bilirubin NEGATIVE (NEGATIVE) Urine Urobilinogen 0.2 (<2.0) EU/dL Ur Leukocyte Esterase NEGATIVE (NEGATIVE) Urine RBC 6-8 (0-2/HPF) Urine WBC 2-4 (0-5/HPF) Ur Epithelial Cells RARE (NONE-FEW) Urine Bacteria FEW (NEGATIVE) Urine Opiates Screen (NEGATIVE) Ur Oxycodone Screen (NEGATIVE) Urine Methadone Screen (NEGATIVE) Ur Barbiturates Screen (NEGATIVE) Ur Phencyclidine Scrn (NEGATIVE) Ur Amphetamine Screen (NEGATIVE) U Methamphetamines Scrn (NEGATIVE) U Benzodiazepines Scrn (NEGATIVE) U Cocaine Metab Screen (NEGATIVE) U Marijuana (THC) Screen (NEGATIVE) 08/05/17 Range/Units 05:09 WBC (4.0-11.0) K/uL RBC (4.50-5.90) M/uL Hgb (13.0-17.0) g/dL Hct (38.0-50.0) % MCV (80.0-98.0) fL MCH (27.0-32.0) pg MCHC (31.0-37.0) g/dL RDW Std Deviation (28.0-62.0) fl RDW Coeff of Dania (11.0-15.0) % Plt Count (150-400) K/uL MPV (7.40-12.00) fL Neut % (Auto) (48.0-80.0) % Lymph % (Auto) (16.0-40.0) % [place] % (Auto) (0.0-15.0) % Eos % (Auto) (0.0-7.0) % Baso % (Auto) (0.0-1.5) % Neut # (Auto) (1.4-5.7) K/uL Lymph # (Auto) (0.6-2.4) K/uL [place] # (Auto) (0.0-0.8) K/uL Eos # (Auto) (0.0-0.7) K/uL Baso # (Auto) (0.0-0.1) K/uL Nucleated RBC % /100WBC Nucleated RBCs # K/uL ABG pH (7.35-7.45) ABG pCO2 (35-45) mmHG ABG pO2 (75-100) mmHG ABG HCO3 (22-26) mEq/L ABG Total CO2 ABG Base Excess (-2.0-2.0) Sodium (136-146) mmol/L Potassium (3.5-5.1) mmol/L Chloride (98-110) mmol/L Carbon Dioxide (21-31) mmol/L BUN (6.0-23.0) mg/dL Creatinine (0.6-1.5) mg/dL Est Cr Clr Drug Dosing mL/min Estimated GFR (MDRD) ml/min Glucose (60-110) mg/dL POC Glucose 401 H (60-110) mg/dL Calcium (8.8-10.8) mg/dL Total Bilirubin (0.1-1.5) mg/dL AST (5-40) IU/L ALT (8-54) IU/L Alkaline Phosphatase (40-150) Total Protein (6.0-8.0) g/dL Albumin (3.5-5.0) g/dL Globulin (2.0-3.5) g/dL Albumin/Globulin Ratio (1.3-2.8) Lipase (7-80) U/L Urine Color Urine Appearance Urine pH (5.0-8.0) Ur Specific [place] (1.001-1.035) Urine Protein (NEGATIVE) mg/dL Urine Glucose (UA) (NEGATIVE) mg/dL Urine Ketones (NEGATIVE) mg/dL Urine Occult Blood (NEGATIVE) Urine Nitrite (NEGATIVE) Urine Bilirubin (NEGATIVE) Urine Urobilinogen (<2.0) EU/dL Ur Leukocyte Esterase (NEGATIVE) Urine RBC (0-2/HPF) Urine WBC (0-5/HPF) Ur Epithelial Cells (NONE-FEW) Urine Bacteria (NEGATIVE) Urine Opiates Screen (NEGATIVE) Ur Oxycodone Screen (NEGATIVE) Urine Methadone Screen (NEGATIVE) Ur Barbiturates Screen (NEGATIVE) Ur Phencyclidine Scrn (NEGATIVE) Ur Amphetamine Screen (NEGATIVE) U Methamphetamines Scrn (NEGATIVE) U Benzodiazepines Scrn (NEGATIVE) U Cocaine Metab Screen (NEGATIVE) U Marijuana (THC) Screen (NEGATIVE) Meds: Medications Discontinued Medications Generic Name Dose Route Start Last Admin Trade Name Freq PRN Reason Stop Dose Admin Diphenhydramine HCl 50 mg 08/05/17 00:52 08/05/17 01:03 Benadryl IVPUSH 08/05/17 00:53 50 mg ONETIME ONE Administration Sodium Chloride 1,000 mls @ 999 mls/hr 08/04/17 23:35 08/04/17 23:43 Normal Saline IV 08/05/17 00:35 999 mls/hr STAT ONE Administration Sodium Chloride 1,000 mls @ 999 mls/hr 08/05/17 00:41 08/05/17 00:51 Normal Saline IV 08/05/17 01:41 999 mls/hr .Bolus ONE Administration Sodium Chloride 1,000 mls @ 999 mls/hr 08/05/17 05:17 08/05/17 05:19 Normal Saline IV 08/05/17 06:17 999 mls/hr .Bolus ONE Administration Insulin Human Regular 20 unit 08/05/17 05:16 08/05/17 05:24 Novolin R SUBCUT 08/05/17 05:17 20 unit ONETIME STA Administration Protocol Metoclopramide HCl 10 mg 08/05/17 00:52 08/05/17 01:02 Reglan IVPUSH 08/05/17 00:53 10 mg ONETIME ONE Administration Ondansetron HCl 4 mg 08/04/17 23:35 08/04/17 23:44 Zofran IVPUSH 08/04/17 23:36 4 mg ONETIME ONE Administration Ondansetron HCl 4 mg 08/05/17 00:41 08/05/17 00:55 Zofran IVPUSH 08/05/17 00:42 Not Given ONETIME ONE Ondansetron HCl 4 mg 08/05/17 06:07 08/05/17 06:14 Zofran IVPUSH 08/05/17 06:08 4 mg ONETIME ONE Administration Pantoprazole Sodium 80 mg 08/05/17 00:52 08/05/17 01:04 Protonix Iv IVPUSH 08/05/17 00:53 80 mg NOW ONE Administration Departure - Departure Time of Disposition: 06:22 Disposition: DC/Tfer to Acute Hospital 02 Condition: Good Clinical Impression: Upper GI bleed, Hyperemesis, Uncontrolled diabetes mellitus - Discharge Information Forms: ED Department Discharge - My Orders Last 24 Hours: My Active Orders 08/04/17 23:35 Chest 1V Frontal [CR] Stat - Assessment/Plan Last 24 Hours: My Active Orders 08/04/17 23:35 Chest 1V Frontal [CR] Stat
[2017-08-05 00:23] LABS: CHLORIDE,CL 106 mmol/L (98-110); SODIUM,NA 142 mmol/L (136-146)
[2017-08-05] MEDS ORDERED: Ondansetron 4 MG/2 ML SDV IVPUSH ONE ×2 (00:41→06:07)
[2017-08-05] MEDS ORDERED: Sodium Chloride 0.9% 1,000 ML IV ONE ×2 (00:41→05:17)
[2017-08-05] MEDS ORDERED: Metoclopramide 10 MG/2 ML SDV IVPUSH ONE (00:52)
[2017-08-05] MEDS ORDERED: diphenhydrAMINE 50 MG/ML SDV IVPUSH ONE (00:52)
[2017-08-05] MEDS ORDERED: Pantoprazole 40 MG Vial IVPUSH ONE (00:52)
[2017-08-05] MEDS ORDERED: Insulin Regular, Human 100 Units/ML 10 ML Vial SUBCUT STA (05:16)
[2017-08-05] MEDS ORDERED: Pantoprazole 80 MG in Sodium Chloride 0.9% 100 ML IV STA (06:36)
[2017-08-05] MEDS ORDERED: Sodium Chloride 0.9% 1,000 ML IV SCH (07:00)
[2017-08-05 07:52] VITALS: BP 203/103
--- NOTE | 2017-08-05 11:28 | CR ---
EXAM DATE: 08/04/17 PATIENT'S AGE: 32 Patient: DAWOOD DUCKWORTH Facility: [place], [place] Site . Site : [id number] Study: XRay Chest [id number] 12:55:33 AM Ordering Physician: Doctor Gill Final Report: INDICATION: Chest pain, shortness of breath TECHNIQUE: Chest radiograph 1 views COMPARISON: 08/04/17 FINDINGS: Cardiovascular and mediastinum: The cardiac silhouette is normal in appearance and size. Mediastinum is within normal limits. Lungs and pleural spaces: Both lungs are unremarkable in appearance. No sign of pleural effusion. No pneumothorax is seen. Bones and soft tissues: No significant findings. IMPRESSION: 1. No acute cardiopulmonary disease seen. Dictated by: Josh Vick MD @ 08/05/2017 00:58:45 (Electronic Signature) Report Signed by Proxy. INOCENTE
== END 2017-08-05 07:45 ==
LOC: MW.ED 23:30
DX: K92.2 Gastrointestinal hemorrhage, unspecified (principal); E10.9 Type 1 diabetes mellitus without complications; I10 Essential (primary) hypertension; F17.210 Nicotine dependence, cigarettes, uncomplicated; Z91.013 Allergy to seafood; Z88.0 Allergy status to penicillin; Z88.8 Allergy status to other drugs, medicaments and biological substances; Z79.899 Other long term (current) drug therapy; E10.43 Type 1 diabetes mellitus with diabetic autonomic (poly)neuropathy; E10.65 Type 1 diabetes mellitus with hyperglycemia; K31.84 Gastroparesis; E86.0 Dehydration; K21.9 Gastro-esophageal reflux disease without esophagitis; I12.9 Hypertensive chronic kidney disease with stage 1 through stage 4 chronic kidney disease, or unspecified chronic kidney disease; E10.22 Type 1 diabetes mellitus with diabetic chronic kidney disease; N18.9 Chronic kidney disease, unspecified; K52.9 Noninfective gastroenteritis and colitis, unspecified; Z79.4 Long term (current) use of insulin; Z79.2 Long term (current) use of antibiotics; Z91.018 Allergy to other foods
CPT/HCPCS: 36415; 36600; 43753; 71010; 71020; 80053; 80305; 81001; 82140; 82150; 82803; 82962; 83605; 83690; 83880; 84484; 85025; 87804; 93005; 96361; 96365; 96372; 96374; 96375; 96376; 99284; 99285; C9113; J1200; J2405; J2550; J2765; J7030; J7040; 99283; J1815-GY

== ENCOUNTER 2017-09-25 10:47 | Observation (INO) | payer BC ==
--- NOTE | 2017-09-25 12:06 | EDM.PDOC ---
ED HPI GENERAL MEDICAL PROBLEM - General Chief Complaint: Lower Extremity Injury/Pain Stated Complaint: WOUND TO BOTH FEET Time Seen by Provider: 09/25/17 11:50 Source of Information: Reports: Patient History Limitations: Reports: No Limitations - History of Present Illness INITIAL COMMENTS - FREE TEXT/NARRATIVE: HISTORY AND PHYSICAL: History of present illness: [Comes to the emergency room complaining of wounds to both feet. He has a long history of insulin-dependent diabetes, which he admits is not well controlled. Believes that his last A1c was over 12. He follows sporadically with Dr. Infante. Over the past 2 weeks, he's noticed a wound to his left fifth toe and to the lateral aspect of the sole of his right foot. Has been having clear to purulent drainage from both wounds. Admits to diminished sensation to his feet. Moderately tender with palpation. Patient also has been feeling dizzy and lightheaded for the past 2 weeks. Denies abdominal pain, nausea, vomiting, constipation and diarrhea. Has a history of GI bleed. Denies blood in stools, and black tarry stools. Denies fever and chills. No chest pain, shortness of breath or difficulty breathing. Has had some swelling to his right foot over the past week, when he noticed the wound to his foot. Denies redness or streaking.] Review of systems: As per history of present illness and below otherwise all systems reviewed and negative. Past medical history: As per history of present illness and as reviewed below otherwise noncontributory. Surgical history: As per history of present illness and as reviewed below otherwise noncontributory. Social history: No reported history of drug or alcohol abuse. Family history: As per history of present illness and as reviewed below otherwise noncontributory. Physical exam: Gen.: Well-developed well-nourished black female in no acute distress. HEENT: Atraumatic, normocephalic. mucous membranes moist, throat clear. Lungs: Clear to auscultation, breath sounds equal bilaterally. Heart: S1S2, regular rate and rhythm. No murmur. Abdomen: Soft, nondistended, nontender. Negative for masses guarding and rebound. Pelvis: Stable nontender. Genitourinary: Deferred. Rectal: Normal sphincter tone, no stool in colon. SFOB negative. Extremities: Left MTP joint of the 5th toe shows a 2cm x .5cm dry pressure ulcer. Right lateral midfoot shows 4cm x 2cm wet pressure ulcer surrounded by wet, macerated tissue. R heel shows 5cm x 1.5cm dry discoloration. No erythema or streaking is appreciated surrounding the wounds. L foot is swollen. NO pitting edema. Neurovascular unremarkable. Neuro: Awake, alert, oriented. Motor and sensory unremarkable throughout. Exam nonfocal. Diagnostics: [CBC, CMP, hemoglobin A1c, Type and Screen] Therapeutics: [1 unit pRBC's] Impression: [Acute renal failure dizziness anemia diabetic foot ulcers Insulin dependent diabetes, uncontrolled] Plan: [Discussed w/ patient that his kidneys are in acute failure and that he is anemic. Patients condition is reviewed w/ Dr. Jeffery, who agrees to accept patient for observation. Patient is in agreement w/ this plan. ] Definitive disposition and diagnosis as appropriate pending reevaluation and review of above. Bilateral 5-Little toe Pain Score (Numeric/FACES): 7 - Related Data Allergies Allergy/AdvReac Type Severity Reaction Status Date / Time shrimp Allergy Severe Other Verified 09/25/17 11:20 iodine Allergy Unknown Anaphylactic Verified 09/25/17 11:20 Shock Penicillins Allergy Unknown Anaphylactic Verified 09/25/17 11:20 Shock gluten Allergy Unknown Muscle Uncoded 08/04/17 13:00 Aches Home Meds: Home Meds Insulin Glarg,Human.Rec.Analog [LantUS Solostar] 46 units SQ BEDTIME 07/15/17 [ History] Omeprazole Magnesium [Prilosec Otc] 20 mg PO DAILY 07/15/17 [History] Insulin Aspart [NovoLOG] 4 unit SUBCUT ASDIRECTED #0 07/23/17 [Rx] Enalapril [Vasotec] 40 mg PO BEDTIME 09/25/17 [History] Past Medical History - Past Health History Medical/Surgical History: Denies Medical/Surgical History HEENT History: Reports: Impaired Vision Cardiovascular History: Reports: Hypertension Respiratory History: Reports: None Gastrointestinal History: Reports: Gastritis, GERD, Hiatal Hernia, Other (See Below) Other Gastrointestinal History: h/o gastric ulcers, h/o hiatal hernia Genitourinary History: Reports: Chronic Renal Insuffiency Musculoskeletal History: Reports: None Neurological History: Reports: None Psychiatric History: Reports: Anxiety Endocrine/Metabolic History: Reports: Diabetes, Type I, Other (See Below) Hematologic History: Reports: Anemia Immunologic History: Reports: None Oncologic (Cancer) History: Reports: None Dermatologic History: Reports: Other (See Below) Other Dermatologic History: diabetic foot ulcer - Infectious Disease History Infectious Disease History: Reports: Chicken Pox Other Infectious Disease History: 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 - Past Surgical History Head Surgeries/Procedures: Reports: None HEENT Surgical History: Reports: None Cardiovascular Surgical History: Reports: None Respiratory Surgical History: Reports: None GI Surgical History: Reports: EGD Male Surgical History: Reports: None Endocrine Surgical History: Reports: None Dermatological Surgical History: Reports: None Social & Family History - Family History Family Medical History: Noncontributory Cardiac: Reports: High Cholesterol, Hypertension OBGYN: Reports: Neurological: Reports: None - Tobacco Use Smoking Status *Q: Former Smoker Years of Tobacco use: 10 Packs/Tins Daily: 0.5 Used Tobacco, but Quit: Yes Month Tobacco Last Used: 06/30 Second Hand Smoke Exposure: Yes - Caffeine Use Caffeine Use: Reports: Coffee, Tea - Alcohol Use Days Per Week of Alcohol Use: 0 Number of Drinks Per Day: 0 Total Drinks Per Week: 0 - Recreational Drug Use Recreational Drug Use: No Drug Use in Last 12 Months: No Recreational Drug Type: Reports: Marijuana/Hashish Recreational Drug Use Frequency: Socially Review of Systems - Review of Systems Review Of Systems: ROS reveals no pertinent complaints other than HPI. ED EXAM, GENERAL - Physical Exam Exam: See Below Course - Vital Signs Last Recorded V/S: Last Vital Signs Temp 98.7 F 09/25/17 11:17 Pulse 107 H 09/25/17 11:17 Resp 12 09/25/17 11:17 BP 139/82 09/25/17 11:17 Pulse Ox 97 09/25/17 11:17 - Orders/Labs/Meds Orders: Active Orders 24 hr Category Date Time Status TYPE AND SCREEN [BBK] Stat Lab 09/25/17 12:02 Received Labs: Laboratory Tests 09/25/17 09/25/17 09/25/17 Range/Units 12:02 12:02 12:02 WBC 6.31 (4.0-11.0) K/uL RBC 4.28 L (4.50-5.90) M/uL Hgb 8.7 L (13.0-17.0) g/dL Hct 28.3 L (38.0-50.0) % MCV 66.1 L (80.0-98.0) fL MCH 20.3 L (27.0-32.0) pg MCHC 30.7 L (31.0-37.0) g/dL RDW Std Deviation 39.4 (28.0-62.0) fl RDW Coeff of Dania 16 H (11.0-15.0) % Plt Count 430 H (150-400) K/uL MPV 9.40 (7.40-12.00) fL Neut % (Auto) 57.3 (48.0-80.0) % Lymph % (Auto) 34.1 (16.0-40.0) % [place] % (Auto) 4.9 (0.0-15.0) % Eos % (Auto) 3.2 (0.0-7.0) % Baso % (Auto) 0.5 (0.0-1.5) % Neut # (Auto) 3.6 (1.4-5.7) K/uL Lymph # (Auto) 2.2 (0.6-2.4) K/uL [place] # (Auto) 0.3 (0.0-0.8) K/uL Eos # (Auto) 0.2 (0.0-0.7) K/uL Baso # (Auto) 0.0 (0.0-0.1) K/uL Nucleated RBC % 0.0 /100WBC Nucleated RBCs # 0 K/uL Sodium 137 (136-146) mmol/L Potassium 5.2 H (3.5-5.1) mmol/L Chloride 102 (98-110) mmol/L Carbon Dioxide 27 (21-31) mmol/L BUN 47 H (6.0-23.0) mg/dL Creatinine 2.9 H (0.6-1.5) mg/dL Est Cr Clr Drug Dosing 36.91 mL/min Estimated GFR (MDRD) 30.9 ml/min Glucose 142 H (60-110) mg/dL Hemoglobin A1c 10.5 H (0.0-6.0) % Calcium 9.4 (8.8-10.8) mg/dL Total Bilirubin 0.2 (0.1-1.5) mg/dL AST 15 (5-40) IU/L ALT 9 (8-54) IU/L Alkaline Phosphatase 107 (40-150) Total Protein 8.3 H (6.0-8.0) g/dL Albumin 3.4 L (3.5-5.0) g/dL Globulin 4.9 H (2.0-3.5) g/dL Albumin/Globulin Ratio 0.7 L (1.3-2.8) Departure - Departure Time of Disposition: 14:50 Disposition: Refer to Observation Condition: Fair Clinical Impression: Renal failure, Anemia, Insulin dependent diabetes mellitus, Diabetic foot ulcers - Discharge Information Referrals: Fitz Infante MD [Primary Care Provider] - Forms: ED Department Discharge - My Orders Last 24 Hours: My Active Orders 09/25/17 12:02 TYPE AND SCREEN [BBK] Stat - Assessment/Plan Last 24 Hours: My Active Orders 09/25/17 12:02 TYPE AND SCREEN [BBK] Stat
[2017-09-25] MEDS ORDERED: Sodium Chloride 0.9% 1,000 ML IV ONE (14:45)
[2017-09-25] MEDS ORDERED: amLODIPine 5 MG Tab PO SCH (15:00)
[2017-09-25] MEDS ORDERED: Doxazosin 2 MG Tab PO SCH (15:00)
[2017-09-25] MEDS ORDERED: Acetaminophen 325 MG Tab PO PRN (15:11)
[2017-09-25] MEDS: Sodium Chloride 0.9% 1,000 ML IV SCH ×2 (16:04→23:43)
[2017-09-25] MEDS ORDERED: Insulin Aspart 100 Units/ML 3 ML Pen SUBCUT SCH (17:00)
--- NOTE | 2017-09-25 19:06 | PCM.HP ---
H&P History of Present Illness - History of Present Illness Initial Comments - Free Text/Narative: 32 yo male with pmh of DM, HTN, CKD who presents to the ED with complaint of foot ulcer to his lateral feet bilaterally. He does report some drainage from the wounds. He denies any fevers, chills, hematemesis, or blood in stool. He does report some lightheadedness. Labs in the ED were significant for Hgb of 8.7 and Creatinine of 2.9 up from 1.6 from 09/02/17. He reports taking his medications regularly which includes torsemide for leg edema. Patient reports having an upper GI bleed last year but is very vague about details. Bilateral 5-Little toe Pain Score (Numeric/FACES): 7 - Related Data Allergies/Adverse Reactions: Allergies Allergy/AdvReac Type Severity Reaction Status Date / Time shrimp Allergy Severe Other Verified 09/25/17 11:20 iodine Allergy Unknown Anaphylactic Verified 09/25/17 11:20 Shock Penicillins Allergy Unknown Anaphylactic Verified 09/25/17 11:20 Shock gluten Allergy Unknown Muscle Uncoded 08/04/17 13:00 Aches Home Medications: Home Meds Insulin Glarg,Human.Rec.Analog [LantUS Solostar] 46 units SQ BEDTIME 07/15/17 [ History] Omeprazole Magnesium [Prilosec Otc] 20 mg PO DAILY 07/15/17 [History] Insulin Aspart [NovoLOG] 4 unit SUBCUT ASDIRECTED #0 07/23/17 [Rx] Doxazosin [Cardura] 2 mg PO DAILY@1500 09/25/17 [History] Enalapril [Vasotec] 40 mg PO DAILY@1500 09/25/17 [History] Insulin Glargine,Hum.Rec.Anlog [Toujeo Solostar] 45 unit SQ DAILY 09/25/17 [ History] Nicotine [Nicotine Patch] 1 patch TD DAILY 09/25/17 [History] Spironolactone [Aldactone] 12.5 mg PO DAILY@1500 09/25/17 [History] Torsemide 20 mg PO DAILY@1500 09/25/17 [History] Torsemide 20 mg PO Q2D@1500 09/25/17 [History] amLODIPine Besylate [Amlodipine Besylate] 10 mg PO DAILY@1500 09/25/17 [History] Clindamycin HCl [Cleocin] 300 mg PO Q8H #15 cap 09/26/17 [Rx] Past Medical History - Past Health History Medical/Surgical History: Denies Medical/Surgical History HEENT History: Reports: Impaired Vision Cardiovascular History: Reports: Hypertension Respiratory History: Reports: None Gastrointestinal History: Reports: Gastritis, GERD, Hiatal Hernia, Other (See Below) Other Gastrointestinal History: h/o gastric ulcers, h/o hiatal hernia Genitourinary History: Reports: Chronic Renal Insuffiency Musculoskeletal History: Reports: None Neurological History: Reports: None Psychiatric History: Reports: Anxiety Endocrine/Metabolic History: Reports: Diabetes, Type I, Other (See Below) Hematologic History: Reports: Anemia Immunologic History: Reports: None Oncologic (Cancer) History: Reports: None Dermatologic History: Reports: Other (See Below) Other Dermatologic History: diabetic foot ulcer - Infectious Disease History Infectious Disease History: Reports: Chicken Pox Other Infectious Disease History: 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 - Past Surgical History Head Surgeries/Procedures: Reports: None HEENT Surgical History: Reports: None Cardiovascular Surgical History: Reports: None Respiratory Surgical History: Reports: None GI Surgical History: Reports: EGD Male Surgical History: Reports: None Endocrine Surgical History: Reports: None Dermatological Surgical History: Reports: None Social & Family History - Family History Family Medical History: Noncontributory Cardiac: Reports: High Cholesterol, Hypertension OBGYN: Reports: Neurological: Reports: None - Tobacco Use Smoking Status *Q: Never Smoker Years of Tobacco use: 10 Packs/Tins Daily: 0.5 Used Tobacco, but Quit: Yes Month Tobacco Last Used: 06/30 Second Hand Smoke Exposure: Yes - Caffeine Use Caffeine Use: Reports: Coffee - Alcohol Use Days Per Week of Alcohol Use: 0 Number of Drinks Per Day: 0 Total Drinks Per Week: 0 - Recreational Drug Use Recreational Drug Use: No Drug Use in Last 12 Months: No Recreational Drug Type: Reports: Marijuana/Hashish Recreational Drug Use Frequency: Socially H&P Review of Systems - Review of Systems: Review Of Systems: ROS reveals no pertinent complaints other than HPI. Exam - Exam Exam: See Below - Vital Signs Vital Signs: Last Vital Signs Temp 36.5 C 09/25/17 17:00 Pulse 99 09/25/17 17:00 Resp 16 09/25/17 17:00 BP 149/87 H 09/25/17 17:04 Pulse Ox 99 09/25/17 17:00 Weight: 80.558 kg - Exam General: Alert, Oriented Lungs: Clear to Auscultation, Normal Respiratory Effort Cardiovascular: Regular Rate, Regular Rhythm GI/Abdominal Exam: Soft, Non-Tender Extremities: No Pedal Edema, Other (2-3 cm ulcer on right lateral metatarsal foot, 1 cm ulcer on left lateral foot) - Patient Data Lab Results Last 24 hrs: Laboratory Results - last 24 hr 09/25/17 Range/Units 16:07 POC Glucose 109 (60-110) mg/dL Result Diagrams: 09/26/17 06:17 09/26/17 06:17 *Q Meaningful Use (ADM) - VTE *Q VTE Criteria *Q: - Stroke *Q Stroke Criteria *Q: - AMI *Q AMI Criteria *Q: Problem List Initiated/Reviewed/Updated: Yes Orders Last 24hrs: Active Orders 24 hr Category Date Time Status Antiembolic Devices [RC] PER UNIT ROUTINE Care 09/25/17 18:59 Ordered Blood Glucose Check, Bedside [RC] TIDAC Care 09/25/17 15:12 Active Intake and Output [RC] Q12H Care 09/25/17 15:11 Active Oxygen Therapy [RC] PRN Care 09/25/17 15:11 Active Up ad Ruth [RC] ASDIRECTED Care 09/25/17 15:11 Active VTE/DVT Education [RC] PER UNIT ROUTINE Care 09/25/17 18:59 Ordered Vital Signs [RC] Q4H Care 09/25/17 15:11 Active [place] [employer] Diet [DIET] Diet 09/25/17 Dinner Active BASIC METABOLIC PANEL,BMP [CHEM] AM Lab 09/26/17 05:11 Ordered CBC WITH AUTO DIFF [HEME] AM Lab 09/26/17 05:11 Ordered FERRITIN [REF] Routine Lab 09/25/17 19:00 Ordered IRON,FE [CHEM] Routine Lab 09/25/17 19:00 Ordered IRON/TIBC [CHEM] Routine Lab 09/25/17 19:00 Ordered RED BLOOD CELLS LP [BBK] Stat Lab 09/25/17 12:02 Results Acetaminophen [Tylenol] Med 09/25/17 15:11 Active 650 mg PO Q4H PRN Clindamycin HCl [Cleocin] Med 09/25/17 19:00 Ordered 300 mg PO Q8H Doxazosin [Cardura] Med 09/25/17 15:00 Active 2 mg PO DAILY@1500 Insulin Aspart [NovoLOG] Med 09/25/17 17:00 Active See Protocol SUBCUT TIDAC Insulin Glarg,Human.Rec.Analog [LantUS Solostar] Med 09/26/17 15:00 Active 45 units SUBCUT BEDTIME@1500 Omeprazole Med 09/26/17 09:00 Active 20 mg PO DAILY Sodium Chloride 0.9% [Normal Saline] 1,000 ml Med 09/25/17 15:15 Active IV ASDIRECTED amLODIPine [Norvasc] Med 09/25/17 15:00 Active 10 mg PO DAILY@1500 Sequential Compression Device [OM.PC] Per Unit Routine Oth 09/25/17 18:59 Ordered Resuscitation Status Routine Resus Stat 09/25/17 15:11 Ordered Medication Orders Acetaminophen (Tylenol) 650 mg PO Q4H PRN PRN Reason: Pain (mild 1-3) Amlodipine Besylate (Norvasc) 10 mg PO DAILY@1500 [facility] Last Admin: 09/25/17 17:02 Dose: 10 mg Clindamycin HCl (Cleocin) 300 mg PO Q8H [facility] Doxazosin Mesylate (Cardura) 2 mg PO DAILY@1500 [facility] Last Admin: 09/25/17 17:04 Dose: 2 mg Sodium Chloride (Normal Saline) 1,000 mls @ 125 mls/hr IV ASDIRECTED [facility] Last Admin: 09/25/17 16:04 Dose: 125 mls/hr Insulin Aspart (Novolog) 0 unit SUBCUT TIDAC [facility] PRN Reason: Protocol Last Admin: 09/25/17 16:29 Dose: Not Given Insulin Glargine (Lantus Solostar) 45 units SUBCUT BEDTIME@1500 [facility] Omeprazole (Omeprazole) 20 mg PO DAILY [facility] Assessment/Plan Comment:: 32 yo male admitted for acute kidney injury Acute on chronic kidney disease, will hold torsemide and [place], will hydrate with IV fluids Diabetic foot ulcer: will treat with clindamycin, continue lantus with premeal insulin anemia: does not appear to be acutely bleeding, will check iron studies. Discharge plan: patient was monitored overnight and following morning creatinine was 1.3 and Hgb was 8.6. We discussed possible transfusion but decided against transfusion as he was asymptomatic with no signs of bleeding . Patient was in agreement with plan and was discharged home.
[2017-09-25] MEDS: Clindamycin HCl 150 MG Cap PO SCH (19:45)
[2017-09-25] MEDS: Insulin Aspart 100 Units/ML 3 ML Pen SUBCUT SCH (19:58)
[2017-09-25] MEDS ORDERED: Insulin Glargine,Human Rec. Analog 100 Units/ML 3 ML Pen SUBCUT SCH ×2 (20:00→21:00)
[2017-09-25] MEDS ORDERED: Heparin Sodium 5,000 Units/ML Vial SUBCUT SCH (21:00)
[2017-09-26] MEDS ORDERED: 50% Dextrose in Water 50 ML Syringe IVPUSH ONE ×2 (02:58→11:18)
[2017-09-26] MEDS: Clindamycin HCl 150 MG Cap PO SCH ×2 (03:47→10:44)
[2017-09-26 06:48] LABS: CHLORIDE,CL 110 mmol/L (98-110); SODIUM,NA 139 mmol/L (136-146)
[2017-09-26] MEDS: Insulin Aspart 100 Units/ML 3 ML Pen SUBCUT SCH ×2 (07:22→12:56)
[2017-09-26] MEDS: Sodium Chloride 0.9% 1,000 ML IV SCH (08:20)
[2017-09-26] MEDS ORDERED: Omeprazole 20 MG Cap.CR PO SCH (09:00)
[2017-09-26 10:01] VITALS: BP 168/98
== END 2017-09-26 13:00 | disposition home or self-care (01) ==
LOC: MW.ED 10:47 → MW.MS 14:49
PROVIDERS: ADMIT Internal Medicine; ATTEND Internal Medicine
DX: E10.621 Type 1 diabetes mellitus with foot ulcer (principal); L97.529 Non-pressure chronic ulcer of other part of left foot with unspecified severity; L97.519 Non-pressure chronic ulcer of other part of right foot with unspecified severity; I12.9 Hypertensive chronic kidney disease with stage 1 through stage 4 chronic kidney disease, or unspecified chronic kidney disease; E10.22 Type 1 diabetes mellitus with diabetic chronic kidney disease; N18.9 Chronic kidney disease, unspecified; K21.9 Gastro-esophageal reflux disease without esophagitis; F41.9 Anxiety disorder, unspecified; N17.9 Acute kidney failure, unspecified; D64.9 Anemia, unspecified; Z91.013 Allergy to seafood; Z88.0 Allergy status to penicillin; Z91.018 Allergy to other foods; Z79.4 Long term (current) use of insulin; Z79.899 Other long term (current) drug therapy
CPT/HCPCS: 36415; 80048; 80053; 82728; 82962; 83036; 83550; 85025; 99284; A9270; J1815; J7040; J7060; 96361; 96372; G0378

== ENCOUNTER 2017-10-07 15:57 | Inpatient (IN) | payer BC ==
[2017-10-07 16:18] LABS: CHLORIDE,CL 102 mmol/L (98-110); SODIUM,NA 132 mmol/L (136-146)
[2017-10-07] MEDS ORDERED: Sodium Chloride 0.9% 10 ML Syringe FLUSH PRN (16:18)
[2017-10-07] MEDS ORDERED: Sodium Chloride 0.9% 2.5 ML Syringe FLUSH PRN (16:18)
[2017-10-07] MEDS ORDERED: Acetaminophen 325 MG Tab PO PRN (16:18)
[2017-10-07] MEDS ORDERED: oxyCODONE 5 MG Tab PO PRN (16:18)
--- NOTE | 2017-10-07 16:32 | PCM.HP ---
Addendum entered and electronically signed by Robina Jimenez NP 10/07/17 18:01 : Will decrease Lantus dose to 20 units daily due to hypoglycemia and more strict diet control in the hospital. Monitor BS Original Note: H&P History of Present Illness - General Date of Service: 10/07/17 Admit Problem/Dx: Admission Diagnosis/Problem Admission Diagnosis/Problem Foot ulcer Source of Information: Patient History Limitations: Reports: No Limitations - History of Present Illness Initial Comments - Free Text/Narative: This 32 year old AA male, who is well known to our facility and with pmh of DM type 1, CKD, HTN and DM foot ulcers presented initially to Dr Infante's office with concerns about his foot ulcers. He was sent to Podiatry with Dr Bray who recommended admission for IV antibiotics. He reports he was here a couple weeks ago with similar concerns but was sent home after a couple day admission. He reports the pain to his R foot is 6/10 currently. He denies fevers at home, no cough, URI, abdominal pain or trouble urinating. He has been complaint with medications. His Toujeo dosing was just decreased today by [facility]abetic Education to 38 units daily due to hypoglycemia during the night. He denies purulent drainage to these ulcers and no other rashes. Labwork was obtained today in the clinic for pending blood transfusion tomorrow at 0800 due to hgb 8.6. Todays labwork revealed no leukocytosis, 8,310. Hgb 8.5 , platelets 346. BUN 47, Cr 1.4 (which is baseline) Na 132, CRP 0.44. He was noted to have blood sugar of 24 in the clinic, he was given juice and candy. He arrived to our floor alert but lethargic and groggy. BS rechecked and noted to be 77, he was given juice and milk along with peanut butter. He started becoming more alert and feeling less groggy. He was able to communicate well and discuss history as well. - Related Data Allergies/Adverse Reactions: Allergies Allergy/AdvReac Type Severity Reaction Status Date / Time shrimp Allergy Severe Other Verified 09/25/17 11:20 iodine Allergy Unknown Anaphylactic Verified 09/25/17 11:20 Shock Penicillins Allergy Unknown Anaphylactic Verified 09/25/17 11:20 Shock gluten Allergy Unknown Muscle Uncoded 08/04/17 13:00 Aches Home Medications: Home Meds Insulin Glarg,Human.Rec.Analog [LantUS Solostar] 46 units SQ BEDTIME 07/15/17 [ History] Omeprazole Magnesium [Prilosec Otc] 20 mg PO DAILY 07/15/17 [History] Insulin Aspart [NovoLOG] 4 unit SUBCUT ASDIRECTED #0 07/23/17 [Rx] Doxazosin [Cardura] 2 mg PO DAILY@1500 09/25/17 [History] Enalapril [Vasotec] 40 mg PO DAILY@1500 09/25/17 [History] Insulin Glargine,Hum.Rec.Anlog [Toujeo Solostar] 45 unit SQ DAILY 09/25/17 [ History] Nicotine [Nicotine Patch] 1 patch TD DAILY 09/25/17 [History] Spironolactone [Aldactone] 12.5 mg PO DAILY@1500 09/25/17 [History] Torsemide 20 mg PO DAILY@1500 09/25/17 [History] Torsemide 20 mg PO Q2D@1500 09/25/17 [History] amLODIPine Besylate [Amlodipine Besylate] 10 mg PO DAILY@1500 09/25/17 [History] Clindamycin HCl [Cleocin] 300 mg PO Q8H #15 cap 09/26/17 [Rx] Past Medical History - Past Health History Medical/Surgical History: Denies Medical/Surgical History HEENT History: Reports: Impaired Vision Cardiovascular History: Reports: Hypertension Respiratory History: Reports: None Gastrointestinal History: Reports: Gastritis, GERD, Hiatal Hernia, Other (See Below) Other Gastrointestinal History: h/o gastric ulcers, h/o hiatal hernia Genitourinary History: Reports: Chronic Renal Insuffiency, Diabetic Nephropathy Musculoskeletal History: Reports: None Neurological History: Reports: Neuropathy, Peripheral Psychiatric History: Reports: Anxiety Endocrine/Metabolic History: Reports: Diabetes, Type I, Other (See Below) Hematologic History: Reports: Anemia Immunologic History: Reports: None Oncologic (Cancer) History: Reports: None Dermatologic History: Reports: Other (See Below) Other Dermatologic History: diabetic foot ulcers - Infectious Disease History Infectious Disease History: Reports: Chicken Pox Other Infectious Disease History: 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 - Past Surgical History Head Surgeries/Procedures: Reports: None HEENT Surgical History: Reports: None Cardiovascular Surgical History: Reports: None Respiratory Surgical History: Reports: None GI Surgical History: Reports: EGD Male Surgical History: Reports: None Endocrine Surgical History: Reports: None Dermatological Surgical History: Reports: None Social & Family History - Family History Family Medical History: Noncontributory Cardiac: Reports: High Cholesterol, Hypertension OBGYN: Reports: Neurological: Reports: None - Tobacco Use Smoking Status *Q: Never Smoker Years of Tobacco use: 10 Packs/Tins Daily: 0.5 Used Tobacco, but Quit: Yes Month Tobacco Last Used: 06/30 Second Hand Smoke Exposure: Yes - Caffeine Use Caffeine Use: Reports: Coffee - Alcohol Use Days Per Week of Alcohol Use: 0 Number of Drinks Per Day: 0 Total Drinks Per Week: 0 - Recreational Drug Use Recreational Drug Use: No Drug Use in Last 12 Months: No Recreational Drug Type: Reports: Marijuana/Hashish Recreational Drug Use Frequency: Socially - Living Situation & Occupation Living situation: Reports: Single Occupation: Employed (Works overnights at [employer] in [facility].) H&P Review of Systems - Review of Systems: Review Of Systems: See Below General: Reports: Fatigue. Denies: Fever, Chills, Malaise, Weakness HEENT: Reports: No Symptoms. Denies: Headaches, Sinus Congestion, Sore Throat, Vertigo, Visual Changes Pulmonary: Reports: No Symptoms. Denies: Shortness of Breath, Sputum Cardiovascular: Reports: Edema (bilateral lower legs.). Denies: Chest Pain Gastrointestinal: Reports: No Symptoms, Flatus. Denies: Abdominal Pain, Black Stool, Bloody Stool, Constipation, Diarrhea, Nausea, Vomiting Genitourinary: Reports: No Symptoms. Denies: Dysuria, Frequency, Burning Musculoskeletal: Reports: Other (bilateral feet due to uclers.) Psychiatric: Reports: No Symptoms Neurological: Reports: No Symptoms Hematologic/Lymphatic: Reports: No Symptoms Immunologic: Reports: No Symptoms Exam - Exam Exam: See Below - Exam General: Alert, Oriented, Cooperative HEENT: Conjunctiva Clear, Mucosa Moist & [place], Pupils Equal, Pupils Reactive Neck: Supple, Trachea Midline, 2 Lungs: Clear to Auscultation, Normal Respiratory Effort Cardiovascular: Regular Rate, Regular Rhythm GI/Abdominal Exam: Normal Bowel Sounds, Soft, Non-Tender, No Organomegaly, No Distention, No Abnormal Bruit, No Mass, Pelvis Stable Back Exam: Normal Inspection, Full Range of Motion, NT Extremities: Normal Range of Motion, Normal Capillary Refill, Pedal Edema (+2 pitting edema to R leg, +1 pitting to L leg no pain and no erythema to calves. ) Skin: Wound Skin Alteration Location (Drawings Not To Scale): 1 - lateral edge of R foot, wet slough and some eschar noted, no purulent drainage or bleeding. Serous drainage noted on bandaid. approximately 2in x 1 in. No surrounding cellulitis noted 2 - puncture type wound, with tracking into heel, approximately dime size opening with smaller tracking. unable to adequately measure due to pain. red beefy skin noted, no purulent drainage and no surround celluiltis 3 - 5th digit full thickness ulceration noted, approximately 1 cm by 2.5 cm, no purulent drainage no surrounding cellulitis. Neurological: Cranial Nerves Intact Neuro Extensive - Mental Status: Alert, Oriented x3, Normal Mood/Affect, Normal Cognition Psychiatric: Alert, Normal Affect, Normal Mood - Patient Data Lab Results Last 24 hrs: Laboratory Results - last 24 hr 10/07/17 Range/Units 13:33 Sodium 132 L (136-146) mmol/L Potassium 4.5 (3.5-5.1) mmol/L Chloride 102 (98-110) mmol/L Carbon Dioxide 24 (21-31) mmol/L BUN 47 H (6.0-23.0) mg/dL Creatinine 1.4 (0.6-1.5) mg/dL Est Cr Clr Drug Dosing TNP Estimated GFR (MDRD) > 60.0 ml/min Glucose 171 H (60-110) mg/dL Calcium 8.8 (8.8-10.8) mg/dL Total Bilirubin 0.2 (0.1-1.5) mg/dL AST 20 (5-40) IU/L ALT 17 (8-54) IU/L Alkaline Phosphatase 105 (40-150) C-Reactive Protein 0.55 H (0.0-0.5) mg/dL Total Protein 7.2 (6.0-8.0) g/dL Albumin 3.4 L (3.5-5.0) g/dL Globulin 3.8 H (2.0-3.5) g/dL Albumin/Globulin Ratio 0.9 L (1.3-2.8) Result Diagrams: 10/07/17 13:33 *Q Meaningful Use (ADM) - VTE *Q VTE Criteria *Q: - Stroke *Q Stroke Criteria *Q: - AMI *Q AMI Criteria *Q: - Problem List (1) Diabetic foot ulcers SNOMED Code(s): 023635862 ICD Code: E11.621 - TYPE 2 DIABETES MELLITUS WITH FOOT ULCER; L97.509 - NON- PRESSURE CHRONIC ULCER OTH PRT UNSP FOOT W UNSP SEVERITY Status: Acute Current Visit: No Qualifiers: Diabetic foot ulcer location: heel Diabetes mellitus type: type 1 Laterality: right Non-pressure ulcer stage: with fat layer exposed Qualified Code(s): E10.621 - Type 1 diabetes mellitus with foot ulcer; L97.412 - Non-pressure chronic ulcer of right heel and midfoot with fat layer exposed; L97.412 - Non-pressure chronic ulcer of right heel and midfoot with fat layer exposed; L97.412 - Non-pressure chronic ulcer of right heel and midfoot with fat layer exposed; L97.412 - Non-pressure chronic ulcer of right heel and midfoot with fat layer exposed (2) Diabetes mellitus type I SNOMED Code(s): 59368433 ICD Code: E10.9 - TYPE 1 DIABETES MELLITUS WITHOUT COMPLICATIONS Status: Chronic Current Visit: No Qualifiers: Diabetes mellitus complication status: with kidney complications Diabetes mellitus complication detail: with chronic kidney disease (3) Chronic renal insufficiency SNOMED Code(s): 488153348 ICD Code: N18.9 - CHRONIC KIDNEY DISEASE, UNSPECIFIED Status: Chronic Current Visit: No Problem List Initiated/Reviewed/Updated: Yes Orders Last 24hrs: Active Orders 24 hr Category Date Time Status Patient Status [ADT] Routine ADT 10/07/17 16:18 Ordered Blood Glucose Check, Bedside [RC] Q1HR Care 10/07/17 16:29 Ordered Blood Glucose Check, Bedside [RC] TIDAC Care 10/07/17 20:00 Ordered Intake and Output [RC] QSHIFT Care 10/07/17 16:19 Ordered Oxygen Therapy [RC] PRN Care 10/07/17 16:18 Ordered Up ad Ruth [RC] ASDIRECTED Care 10/07/17 16:18 Ordered VTE/DVT Education [RC] PER UNIT ROUTINE Care 10/07/17 16:18 Ordered Vital Signs [RC] Q4H Care 10/07/17 16:18 Ordered [employer] Diet [DIET] Diet 10/07/17 Dinner Ordered Foot wo Cont Rt [MR] Urgent Exams 10/07/17 16:30 Ordered CBC WITH AUTO DIFF [HEME] Routine Lab 10/07/17 13:33 Received SEDIMENTATION RATE AUTO [HEME] Routine Lab 10/07/17 13:33 Received Acetaminophen [Tylenol] Med 10/07/17 16:18 Ordered 650 mg PO Q4H PRN Heparin Sodium Med 10/07/17 21:00 Ordered 5,000 units SUBCUT Q12HR Insulin Aspart [NovoLOG] Med 10/07/17 17:00 Ordered See Protocol SUBCUT TIDAC Insulin Glarg,Human.Rec.Analog [LantUS Solostar] Med 10/08/17 09:00 Ordered 38 units SUBCUT DAILY Sodium Chloride 0.9% [Saline Flush] Med 10/07/17 16:18 Ordered 10 ml FLUSH ASDIRECTED PRN Sodium Chloride 0.9% [Saline Flush] Med 10/07/17 16:18 Ordered 2.5 ml FLUSH ASDIRECTED PRN Vancomycin Pharmacy to Dose [Pharmacy to Dose - Med 10/07/17 16:30 Ordered Vancomycin] 1 dose .XX ASDIRECTED oxyCODONE Med 10/07/17 16:18 Ordered 5 mg PO Q4H PRN Saline Lock Insert [OM.PC] Routine Oth 10/07/17 16:18 Ordered Resuscitation Status Routine Resus Stat 10/07/17 16:18 Ordered Medication Orders Acetaminophen (Tylenol) 650 mg PO Q4H PRN PRN Reason: Pain (mild 1-3) Heparin Sodium (Porcine) (Heparin Sodium) 5,000 units SUBCUT Q12HR [facility]HAEL Insulin Aspart (Novolog) 0 unit SUBCUT TIDAC MICHAEL PRN Reason: Protocol Insulin Glargine (Lantus Solostar) 38 units SUBCUT DAILY [facility]HAEL Oxycodone HCl (Oxycodone) 5 mg PO Q4H PRN PRN Reason: Pain (moderate 4-6) Sodium Chloride (Saline Flush) 10 ml FLUSH ASDIRECTED PRN PRN Reason: Keep Vein Open Sodium Chloride (Saline Flush) 2.5 ml FLUSH ASDIRECTED PRN PRN Reason: Keep Vein Open Vancomycin HCl (Pharmacy To Dose - Vancomycin) 1 dose .XX ASDIRECTED MICHAEL Assessment/Plan Comment:: This 32 year old male admitted with diabetic foot ulcers 1. Diabetic foot ulcers: Podiatry recommended admission for IV antibiotics. Will obtain MRI of R foot to monitor for osteomyelitis due to heel wound which is tracking into heel and length unable to be measured appropriately. No leukocytosis or fevers. Edema to lower legs, encouraged elevation to reduce edema. Will place on Vancomycin for now and monitor. Will look into consult Podiatry, Dr English for hospital consult for any possible surgical needs. 2. DM type 1: Hypoglycemic upon arrival to floor, improving. Continue home dosing of long acting insulin, 38 units in the morning. Novolog SSI with meals. Monitor closely for next few hours due to hypoglycemic event. Noted by PCP, to be non-complaint with medications and diet. 3. HTN: Continue home medications, BP on admission 160/80s. 4. CKD: At baseline now. WIll monitor closely with Vancomycin. 5. Anemia: Likely secondary to CKD. does not appear symptomatic. was scheduled for blood transfusion in the morning through PCP VTE prophylaxis: Will likely order heparin, will hold off until seen by Dr English in case of OR debridement needed.
[2017-10-07] MEDS: Insulin Aspart 100 Units/ML 3 ML Pen SUBCUT SCH (17:09)
--- NOTE | 2017-10-07 18:36 | PCM.CONS ---
H&P History of Present Illness - General Date of Service: 10/07/17 Admit Problem/Dx: Admission Diagnosis/Problem Admission Diagnosis/Problem Foot ulcer Source of Information: Patient, RN Notes Reviewed History Limitations: Reports: No Limitations - History of Present Illness Onset of Symptoms: Reports: Gradual Duration of Symptoms: Reports: Constant Location: Reports: Lower Extremity, Left, Lower Extremity, Right Quality: Reports: Dull Severity: Moderate Worsens with: Reports: None Context: Reports: Other (uncontrolled diabetes) Right Feet Pain Score (Numeric/FACES): 7 - Related Data Allergies/Adverse Reactions: Allergies Allergy/AdvReac Type Severity Reaction Status Date / Time shrimp Allergy Severe Other Verified 09/25/17 11:20 iodine Allergy Unknown Anaphylactic Verified 09/25/17 11:20 Shock Penicillins Allergy Unknown Anaphylactic Verified 09/25/17 11:20 Shock gluten Allergy Unknown Muscle Uncoded 08/04/17 13:00 Aches Home Medications: Home Meds Omeprazole Magnesium [Prilosec Otc] 40 mg PO DAILY 07/15/17 [History] Doxazosin [Cardura] 2 mg PO DAILY 09/25/17 [History] Enalapril [Vasotec] 40 mg PO DAILY 09/25/17 [History] Insulin Glargine,Hum.Rec.Anlog [Toujeo Solostar] 38 unit SQ DAILY 09/25/17 [ History] Spironolactone [Aldactone] 25 mg PO DAILY 09/25/17 [History] Torsemide 20 mg PO DAILY 09/25/17 [History] amLODIPine Besylate [Amlodipine Besylate] 10 mg PO DAILY 09/25/17 [History] Insulin Aspart [NovoLOG] 0 unit SUBCUT ASDIRECTED 10/07/17 [History] Past Medical History - Past Health History Medical/Surgical History: Denies Medical/Surgical History HEENT History: Reports: Impaired Vision Cardiovascular History: Reports: Hypertension Respiratory History: Reports: None Gastrointestinal History: Reports: Gastritis, GERD, Hiatal Hernia, Other (See Below) Other Gastrointestinal History: h/o gastric ulcers, h/o hiatal hernia Genitourinary History: Reports: Chronic Renal Insuffiency, Diabetic Nephropathy Musculoskeletal History: Reports: None Neurological History: Reports: Neuropathy, Peripheral Psychiatric History: Reports: Anxiety Endocrine/Metabolic History: Reports: Diabetes, Type I, Other (See Below) Hematologic History: Reports: Anemia Immunologic History: Reports: None Oncologic (Cancer) History: Reports: None Dermatologic History: Reports: Other (See Below) Other Dermatologic History: diabetic foot ulcers - Infectious Disease History Infectious Disease History: Reports: Chicken Pox Other Infectious Disease History: 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 - Past Surgical History Head Surgeries/Procedures: Reports: None HEENT Surgical History: Reports: None Cardiovascular Surgical History: Reports: None Respiratory Surgical History: Reports: None GI Surgical History: Reports: EGD Male Surgical History: Reports: None Endocrine Surgical History: Reports: None Dermatological Surgical History: Reports: None Social & Family History - Family History Family Medical History: Noncontributory Cardiac: Reports: High Cholesterol, Hypertension OBGYN: Reports: Neurological: Reports: None - Tobacco Use Smoking Status *Q: Never Smoker Years of Tobacco use: 10 Packs/Tins Daily: 0.5 Used Tobacco, but Quit: Yes Month Tobacco Last Used: 06/30 Second Hand Smoke Exposure: Yes - Caffeine Use Caffeine Use: Reports: Coffee - Alcohol Use Days Per Week of Alcohol Use: 0 Number of Drinks Per Day: 0 Total Drinks Per Week: 0 - Recreational Drug Use Recreational Drug Use: No Drug Use in Last 12 Months: No Recreational Drug Type: Reports: Marijuana/Hashish Recreational Drug Use Frequency: Socially - Living Situation & Occupation Living situation: Reports: Single Occupation: Employed (Works overnights at [employer] in [facility].) H&P Review of Systems - Review of Systems: Review Of Systems: See Below General: Reports: No Symptoms HEENT: Reports: No Symptoms Pulmonary: Reports: No Symptoms Cardiovascular: Reports: No Symptoms Gastrointestinal: Reports: No Symptoms Genitourinary: Reports: No Symptoms Musculoskeletal: Reports: No Symptoms Skin: Reports: No Symptoms Psychiatric: Reports: No Symptoms Neurological: Reports: No Symptoms Hematologic/Lymphatic: Reports: No Symptoms Immunologic: Reports: No Symptoms Exam - Exam Exam: See Below - Vital Signs Vital Signs: Last Vital Signs Temp 36.2 C 10/07/17 16:18 Pulse 100 10/07/17 16:18 Resp 16 10/07/17 16:18 BP 167/96 H 10/07/17 16:18 Pulse Ox 97 10/07/17 16:18 Weight: 87.815 kg - Exam General: Alert, Oriented Peripheral Pulses: 1+: Posterior Tibial (L), Posterior Tibial (R), Dorsalis Pedis (L), Dorsalis Pedis (R) Skin: Other Neurological: Sensation Intact Physical Exam Comments:: right foot: approximately 1.5 cm heel ulcer, probes to subcutaneous level, minimal serous drainage, no purulence, no malodor, lateral aspect over fifth metatarsal shaft, dry ulcer to subcutaneous level with no active drainage. left foot: dorsal aspect of fifth toe has an ulcer to subcutaneous level, minimal active serous drainage and no malodor, no purulence, 4th webspace is macerated. - Patient Data Lab Results Last 24 hrs: Laboratory Results - last 24 hr 10/07/17 10/07/17 10/07/17 Range/Units 13:33 13:33 17:04 WBC 8.63 (4.0-11.0) K/uL RBC 4.17 L (4.50-5.90) M/uL Hgb 8.6 L (13.0-17.0) g/dL Hct 27.4 L (38.0-50.0) % MCV 65.7 L (80.0-98.0) fL MCH 20.6 L (27.0-32.0) pg MCHC 31.4 (31.0-37.0) g/dL RDW Std Deviation 40.6 (28.0-62.0) fl RDW Coeff of Dania 17 H (11.0-15.0) % Plt Count 359 (150-400) K/uL MPV 9.90 (7.40-12.00) fL Neut % (Auto) 61.5 (48.0-80.0) % Lymph % (Auto) 29.0 (16.0-40.0) % [place] % (Auto) 5.3 (0.0-15.0) % Eos % (Auto) 3.7 (0.0-7.0) % Baso % (Auto) 0.5 (0.0-1.5) % Neut # (Auto) 5.3 (1.4-5.7) K/uL Lymph # (Auto) 2.5 H (0.6-2.4) K/uL [place] # (Auto) 0.5 (0.0-0.8) K/uL Eos # (Auto) 0.3 (0.0-0.7) K/uL Baso # (Auto) 0.0 (0.0-0.1) K/uL Nucleated RBC % 0.0 /100WBC Nucleated RBCs # 0 K/uL ESR 91 H (0-14) mm/hr Sodium 132 L (136-146) mmol/L Potassium 4.5 (3.5-5.1) mmol/L Chloride 102 (98-110) mmol/L Carbon Dioxide 24 (21-31) mmol/L BUN 47 H (6.0-23.0) mg/dL Creatinine 1.4 (0.6-1.5) mg/dL Est Cr Clr Drug Dosing TNP Estimated GFR (MDRD) > 60.0 ml/min Glucose 171 H (60-110) mg/dL POC Glucose 84 (60-110) mg/dL Calcium 8.8 (8.8-10.8) mg/dL Total Bilirubin 0.2 (0.1-1.5) mg/dL AST 20 (5-40) IU/L ALT 17 (8-54) IU/L Alkaline Phosphatase 105 (40-150) C-Reactive Protein 0.55 H (0.0-0.5) mg/dL Total Protein 7.2 (6.0-8.0) g/dL Albumin 3.4 L (3.5-5.0) g/dL Globulin 3.8 H (2.0-3.5) g/dL Albumin/Globulin Ratio 0.9 L (1.3-2.8) 10/07/17 Range/Units 17:52 WBC (4.0-11.0) K/uL RBC (4.50-5.90) M/uL Hgb (13.0-17.0) g/dL Hct (38.0-50.0) % MCV (80.0-98.0) fL MCH (27.0-32.0) pg MCHC (31.0-37.0) g/dL RDW Std Deviation (28.0-62.0) fl RDW Coeff of Dania (11.0-15.0) % Plt Count (150-400) K/uL MPV (7.40-12.00) fL Neut % (Auto) (48.0-80.0) % Lymph % (Auto) (16.0-40.0) % [place] % (Auto) (0.0-15.0) % Eos % (Auto) (0.0-7.0) % Baso % (Auto) (0.0-1.5) % Neut # (Auto) (1.4-5.7) K/uL Lymph # (Auto) (0.6-2.4) K/uL [place] # (Auto) (0.0-0.8) K/uL Eos # (Auto) (0.0-0.7) K/uL Baso # (Auto) (0.0-0.1) K/uL Nucleated RBC % /100WBC Nucleated RBCs # K/uL ESR (0-14) mm/hr Sodium (136-146) mmol/L Potassium (3.5-5.1) mmol/L Chloride (98-110) mmol/L Carbon Dioxide (21-31) mmol/L BUN (6.0-23.0) mg/dL Creatinine (0.6-1.5) mg/dL Est Cr Clr Drug Dosing Estimated GFR (MDRD) ml/min Glucose (60-110) mg/dL POC Glucose 100 (60-110) mg/dL Calcium (8.8-10.8) mg/dL Total Bilirubin (0.1-1.5) mg/dL AST (5-40) IU/L ALT (8-54) IU/L Alkaline Phosphatase (40-150) C-Reactive Protein (0.0-0.5) mg/dL Total Protein (6.0-8.0) g/dL Albumin (3.5-5.0) g/dL Globulin (2.0-3.5) g/dL Albumin/Globulin Ratio (1.3-2.8) Result Diagrams: 10/07/17 13:33 10/07/17 13:33 Consult PN Assessment/Plan Procedures: Procedures AGENT NOS ASSAY W/OPTIC (11/07/15) ASSAY OF AMMONIA (08/04/17) ASSAY OF AMYLASE (08/04/17) ASSAY OF FERRITIN (09/25/17) ASSAY OF FREE THYROXINE (09/30/17) ASSAY OF IRON (04/08/16) ASSAY OF LACTIC ACID (08/04/17) ASSAY OF LIPASE (08/04/17) ASSAY OF MAGNESIUM (08/19/16) ASSAY OF NATRIURETIC PEPTIDE (08/04/17) ASSAY OF PHOSPHORUS (11/11/16) ASSAY OF PROTEIN URINE (04/10/16) ASSAY OF TROPONIN QUANT (08/04/17) ASSAY THYROID STIM HORMONE (09/30/17) BLOOD CULTURE FOR BACTERIA (07/22/17) BLOOD GASES ANY COMBINATION (08/04/17) C-REACTIVE PROTEIN (11/07/15) CHEST X-RAY 1 VIEW FRONTAL (08/04/17) CHEST X-RAY 2VW FRONTAL&LATL (08/04/17) COMPLETE CBC AUTOMATED (05/06/14) COMPLETE CBC W/AUTO DIFF WBC (09/30/17) COMPREHEN METABOLIC PANEL (09/30/17) CREATININE CLEARANCE TEST (04/10/16) CT ABD & PELVIS W/O CONTRAST (11/07/15) DRUG TEST PRSMV DIR OPT OBS (08/04/17) EGD BIOPSY SINGLE/MULTIPLE (01/29/17) ELECTROCARDIOGRAM TRACING (08/04/17) EMERGENCY DEPT VISIT (09/25/17) EMERGENCY DEPT VISIT (08/04/17) EMERGENCY DEPT VISIT (07/20/17) EMERGENCY DEPT VISIT (07/15/17) EMERGENCY DEPT VISIT (04/17/17) EMERGENCY DEPT VISIT (12/14/16) EMERGENCY DEPT VISIT (11/07/15) EMERGENCY DEPT VISIT (11/07/15) EMERGENCY DEPT VISIT (03/28/15) EMERGENCY DEPT VISIT (03/12/15) EMERGENCY DEPT VISIT (09/28/14) EMERGENCY DEPT VISIT (06/19/14) EMERGENCY DEPT VISIT (04/03/14) EXTREMITY STUDY (07/20/17) FIBRIN DEGRADATION QUANT (07/22/17) GASTRIC EMPTYING IMAG STUDY (02/03/17) GLUCOSE BLOOD TEST (09/25/17) GLYCOSYLATED HEMOGLOBIN TEST (09/30/17) HYDRATE IV INFUSION ADD-ON (08/04/17) IMMUNIZATION ADMIN (07/20/17) INFLUENZA ASSAY W/OPTIC (08/04/17) IRON BINDING TEST (09/25/17) LIPID PANEL (09/30/17) LUNG VENTILAT&PERFUS IMAGING (07/22/17) METABOLIC PANEL TOTAL CA (09/25/17) OCCULT BLD FECES 1-3 TESTS (11/07/15) PROTHROMBIN TIME (07/22/17) RENAL FUNCTION PANEL (09/02/17) ROUTINE VENIPUNCTURE (09/30/17) SPECIAL STAINS GROUP 1 (10/17/14) STOOL CULTR AEROBIC BACT EA (11/07/15) TDAP VACCINE 7 YRS/> IM (07/20/17) TEST FOR ACETONE/KETONES (07/20/17) THER/PROPH/DIAG INJ IV PUSH (08/04/17) THER/PROPH/DIAG INJ SC/IM (08/04/17) THER/PROPH/DIAG IV INF ADDON (07/22/17) THER/PROPH/DIAG IV INF INIT (08/04/17) TISSUE EXAM BY PATHOLOGIST (10/17/14) TTE W/DOPPLER COMPLETE (07/22/17) TX GASTRO INTUB W/ASP (08/04/17) TX/PRO/DX INJ NEW DRUG ADDON (08/04/17) TX/PRO/DX INJ SAME DRUG SPECIAL SERVICES SUPERVISOR (08/04/17) UR ALBUMIN SEMIQUANTITATIVE (04/08/16) URINALYSIS AUTO W/O SCOPE (12/14/16) URINALYSIS AUTO W/SCOPE (08/04/17) US EXAM ABDO BACK WALL DIALLO (04/17/16) WITHDRAWAL OF ARTERIAL BLOOD (08/04/17) X-RAY EXAM OF FOOT (07/20/17) (1) Diabetic foot ulcers SNOMED Code(s): 922983653 Code(s): E11.621 - TYPE 2 DIABETES MELLITUS WITH FOOT ULCER; L97.509 - NON- PRESSURE CHRONIC ULCER OTH PRT UNSP FOOT W UNSP SEVERITY Priority: Medium Current Visit: No Qualifiers: Diabetic foot ulcer location: heel Diabetes mellitus type: type 1 Laterality: right Non-pressure ulcer stage: with fat layer exposed Qualified Code(s): E10.621 - Type 1 diabetes mellitus with foot ulcer; L97.412 - Non-pressure chronic ulcer of right heel and midfoot with fat layer exposed; L97.412 - Non-pressure chronic ulcer of right heel and midfoot with fat layer exposed; L97.412 - Non-pressure chronic ulcer of right heel and midfoot with fat layer exposed; L97.412 - Non-pressure chronic ulcer of right heel and midfoot with fat layer exposed (2) Diabetic foot ulcer SNOMED Code(s): 523222278 Code(s): E11.621 - TYPE 2 DIABETES MELLITUS WITH FOOT ULCER; L97.509 - NON- PRESSURE CHRONIC ULCER OTH PRT UNSP FOOT W UNSP SEVERITY Current Visit: Yes Qualifiers: Diabetic foot ulcer location: toe Diabetes mellitus type: type 1 Laterality: left Problem List Initiated/Reviewed/Updated: Yes Plan: 1. right heel ulcer flushed with saline spray 2. right heel ulcer swab culture obtained for c&S 3. dry dressing applied to all ulcers 4. left fourth web space painted with betadine. 5. MRI is pending - will re-evaluate once resulted. 6. patient to continue IV antibiotic 7. will follow and advise on discharge once MRI resulted. Thank you for allowing me to participate in the care of this patient.
[2017-10-07] MEDS ORDERED: Doxazosin 2 MG Tab PO SCH (21:00)
[2017-10-07] MEDS ORDERED: Heparin Sodium 5,000 Units/ML Vial SUBCUT SCH (21:00)
[2017-10-08 05:31] LABS: CHLORIDE,CL 111 mmol/L (98-110); SODIUM,NA 141 mmol/L (136-146)
[2017-10-08] MEDS: Insulin Aspart 100 Units/ML 3 ML Pen SUBCUT SCH ×4 (06:34→17:12)
[2017-10-08] MEDS ORDERED: Omeprazole 20 MG Cap.CR PO SCH (07:30)
--- NOTE | 2017-10-08 08:00 | PCM.PN ---
- General Info Date of Service: 10/08/17 Admission Dx/Problem (Free Text): Admission Diagnosis/Problem Admission Diagnosis/Problem Foot ulcer Subjective Update: up ambulating in the room. Denies chest pain or palpitations. No SOB, bleeding or fast heart rate. Slept well overnight. Some pain to feet, but less than on admission since he has had them elevated. Functional Status: Reports: Pain Controlled, Tolerating Diet, Ambulating, Urinating - Review of Systems General: Reports: No Symptoms. Denies: Fever, Fatigue, Malaise Pulmonary: Reports: No Symptoms. Denies: Shortness of Breath, Cough, Sputum Cardiovascular: Reports: No Symptoms. Denies: Chest Pain, Palpitations, Edema Gastrointestinal: Reports: No Symptoms. Denies: Abdominal Pain, Nausea, Vomiting Genitourinary: Reports: No Symptoms. Denies: Dysuria, Frequency, Burning Neurological: Reports: No Symptoms. Denies: Confusion Psychiatric: Reports: No Symptoms. Denies: Confusion - Patient Data Vitals - Most Recent: Last Vital Signs Temp 99.2 F 10/08/17 05:02 Pulse 89 10/08/17 05:02 Resp 19 10/08/17 05:02 BP 152/81 H 10/08/17 05:02 Pulse Ox 97 10/08/17 05:02 Weight - Most Recent: 87.815 kg I&O - Last 24 Hours: Intake & Output 10/07/17 10/08/17 10/08/17 22:59 06:59 14:59 Intake Total 500 350 Balance 500 350 Lab Results Last 24 Hours: Laboratory Results - last 24 hr 10/07/17 10/07/17 10/07/17 Range/Units 13:33 13:33 17:04 WBC 8.63 (4.0-11.0) K/uL RBC 4.17 L (4.50-5.90) M/uL Hgb 8.6 L (13.0-17.0) g/dL Hct 27.4 L (38.0-50.0) % MCV 65.7 L (80.0-98.0) fL MCH 20.6 L (27.0-32.0) pg MCHC 31.4 (31.0-37.0) g/dL RDW Std Deviation 40.6 (28.0-62.0) fl RDW Coeff of Dania 17 H (11.0-15.0) % Plt Count 359 (150-400) K/uL MPV 9.90 (7.40-12.00) fL Neut % (Auto) 61.5 (48.0-80.0) % Lymph % (Auto) 29.0 (16.0-40.0) % [place] % (Auto) 5.3 (0.0-15.0) % Eos % (Auto) 3.7 (0.0-7.0) % Baso % (Auto) 0.5 (0.0-1.5) % Neut # (Auto) 5.3 (1.4-5.7) K/uL Lymph # (Auto) 2.5 H (0.6-2.4) K/uL [place] # (Auto) 0.5 (0.0-0.8) K/uL Eos # (Auto) 0.3 (0.0-0.7) K/uL Baso # (Auto) 0.0 (0.0-0.1) K/uL Nucleated RBC % 0.0 /100WBC Nucleated RBCs # 0 K/uL ESR 91 H (0-14) mm/hr Sodium 132 L (136-146) mmol/L Potassium 4.5 (3.5-5.1) mmol/L Chloride 102 (98-110) mmol/L Carbon Dioxide 24 (21-31) mmol/L BUN 47 H (6.0-23.0) mg/dL Creatinine 1.4 (0.6-1.5) mg/dL Est Cr Clr Drug Dosing TNP Estimated GFR (MDRD) > 60.0 ml/min Glucose 171 H (60-110) mg/dL POC Glucose 84 (60-110) mg/dL Calcium 8.8 (8.8-10.8) mg/dL Total Bilirubin 0.2 (0.1-1.5) mg/dL AST 20 (5-40) IU/L ALT 17 (8-54) IU/L Alkaline Phosphatase 105 (40-150) C-Reactive Protein 0.55 H (0.0-0.5) mg/dL Total Protein 7.2 (6.0-8.0) g/dL Albumin 3.4 L (3.5-5.0) g/dL Globulin 3.8 H (2.0-3.5) g/dL Albumin/Globulin Ratio 0.9 L (1.3-2.8) 10/07/17 10/07/17 10/07/17 Range/Units 17:52 19:04 20:43 WBC (4.0-11.0) K/uL RBC (4.50-5.90) M/uL Hgb (13.0-17.0) g/dL Hct (38.0-50.0) % MCV (80.0-98.0) fL MCH (27.0-32.0) pg MCHC (31.0-37.0) g/dL RDW Std Deviation (28.0-62.0) fl RDW Coeff of Dania (11.0-15.0) % Plt Count (150-400) K/uL MPV (7.40-12.00) fL Neut % (Auto) (48.0-80.0) % Lymph % (Auto) (16.0-40.0) % [place] % (Auto) (0.0-15.0) % Eos % (Auto) (0.0-7.0) % Baso % (Auto) (0.0-1.5) % Neut # (Auto) (1.4-5.7) K/uL Lymph # (Auto) (0.6-2.4) K/uL [place] # (Auto) (0.0-0.8) K/uL Eos # (Auto) (0.0-0.7) K/uL Baso # (Auto) (0.0-0.1) K/uL Nucleated RBC % /100WBC Nucleated RBCs # K/uL ESR (0-14) mm/hr Sodium (136-146) mmol/L Potassium (3.5-5.1) mmol/L Chloride (98-110) mmol/L Carbon Dioxide (21-31) mmol/L BUN (6.0-23.0) mg/dL Creatinine (0.6-1.5) mg/dL Est Cr Clr Drug Dosing Estimated GFR (MDRD) ml/min Glucose (60-110) mg/dL POC Glucose 100 141 H 154 H (60-110) mg/dL Calcium (8.8-10.8) mg/dL Total Bilirubin (0.1-1.5) mg/dL AST (5-40) IU/L ALT (8-54) IU/L Alkaline Phosphatase (40-150) C-Reactive Protein (0.0-0.5) mg/dL Total Protein (6.0-8.0) g/dL Albumin (3.5-5.0) g/dL Globulin (2.0-3.5) g/dL Albumin/Globulin Ratio (1.3-2.8) 10/08/17 10/08/17 Range/Units 04:43 04:43 WBC 5.45 (4.0-11.0) K/uL RBC 4.06 L (4.50-5.90) M/uL Hgb 8.3 L (13.0-17.0) g/dL Hct 26.9 L (38.0-50.0) % MCV 66.3 L (80.0-98.0) fL MCH 20.4 L (27.0-32.0) pg MCHC 30.9 L (31.0-37.0) g/dL RDW Std Deviation 40.6 (28.0-62.0) fl RDW Coeff of Dania 17 H (11.0-15.0) % Plt Count 350 (150-400) K/uL MPV 9.50 (7.40-12.00) fL Neut % (Auto) 52.4 (48.0-80.0) % Lymph % (Auto) 35.6 (16.0-40.0) % [place] % (Auto) 5.9 (0.0-15.0) % Eos % (Auto) 5.5 (0.0-7.0) % Baso % (Auto) 0.6 (0.0-1.5) % Neut # (Auto) 2.9 (1.4-5.7) K/uL Lymph # (Auto) 1.9 (0.6-2.4) K/uL [place] # (Auto) 0.3 (0.0-0.8) K/uL Eos # (Auto) 0.3 (0.0-0.7) K/uL Baso # (Auto) 0.0 (0.0-0.1) K/uL Nucleated RBC % 0.0 /100WBC Nucleated RBCs # 0 K/uL ESR (0-14) mm/hr Sodium 141 (136-146) mmol/L Potassium 4.4 (3.5-5.1) mmol/L Chloride 111 H (98-110) mmol/L Carbon Dioxide 23 (21-31) mmol/L BUN 27 H (6.0-23.0) mg/dL Creatinine 0.9 (0.6-1.5) mg/dL Est Cr Clr Drug Dosing 118.92 Estimated GFR (MDRD) > 60.0 ml/min Glucose 66 (60-110) mg/dL POC Glucose (60-110) mg/dL Calcium 8.7 L (8.8-10.8) mg/dL Total Bilirubin (0.1-1.5) mg/dL AST (5-40) IU/L ALT (8-54) IU/L Alkaline Phosphatase (40-150) C-Reactive Protein (0.0-0.5) mg/dL Total Protein (6.0-8.0) g/dL Albumin (3.5-5.0) g/dL Globulin (2.0-3.5) g/dL Albumin/Globulin Ratio (1.3-2.8) Med Orders - Current: Current Medications Acetaminophen (Tylenol) 650 mg PO Q4H PRN PRN Reason: Pain (mild 1-3) Amlodipine Besylate (Norvasc) 10 mg PO DAILY [facility] Doxazosin Mesylate (Cardura) 2 mg PO BEDTIME [facility] Last Admin: 10/07/17 20:40 Dose: 2 mg Enalapril Maleate (Vasotec) 40 mg PO DAILY [facility] Vancomycin HCl 1,250 mg/ (Sodium Chloride) 500 mls @ 333.333 mls/hr IV Q12H [facility] Last Admin: 10/08/17 04:55 Dose: 333.333 mls/hr Insulin Aspart (Novolog) 0 unit SUBCUT TIDAC [facility] PRN Reason: Protocol Last Admin: 10/08/17 06:34 Dose: Not Given Insulin Glargine (Lantus Solostar) 20 units SUBCUT DAILY [facility] Omeprazole (Omeprazole) 40 mg PO ACBREAKFAST [facility] Last Admin: 10/08/17 06:41 Dose: 40 mg Oxycodone HCl (Oxycodone) 5 mg PO Q4H PRN PRN Reason: Pain (moderate 4-6) Sodium Chloride (Saline Flush) 10 ml FLUSH ASDIRECTED PRN PRN Reason: Keep Vein Open Sodium Chloride (Saline Flush) 2.5 ml FLUSH ASDIRECTED PRN PRN Reason: Keep Vein Open Spironolactone (Aldactone) 25 mg PO DAILY [facility] Torsemide (Demadex) 20 mg PO DAILY [facility] Vancomycin HCl (Pharmacy To Dose - Vancomycin) 1 dose .XX ASDIRECTED MICHAEL Discontinued Medications Heparin Sodium (Porcine) (Heparin Sodium) 5,000 units SUBCUT Q12HR [facility] Vancomycin HCl 1,250 mg/ (Sodium Chloride) 500 mls @ 333.333 mls/hr IV Q12H [facility] Insulin Glargine (Lantus Solostar) 38 units SUBCUT DAILY [facility] Toujeo 300 Units/Ml 0 each SUBCUT DAILY MICHAEL - Exam General: Alert, Oriented, Cooperative, No Acute Distress Lungs: Clear to Auscultation, Normal Respiratory Effort Cardiovascular: Regular Rate, Regular Rhythm GI/Abdominal Exam: Normal Bowel Sounds, Soft, Non-Tender, No Organomegaly, No Distention, No Abnormal Bruit, No Mass, Pelvis Stable Extremities: Normal Inspection, Normal Range of Motion, Non-Tender, No Pedal Edema, Normal Capillary Refill Wound/Incisions: Other (L foot, 5th digit open with maceration noted inbetween 5th and 4th digit. No drainage, or erythema and no fluctuance. R foot, lateral edge open region no drainage or fluctuance noted. R heel 1.5 cm with tracking into heel no fluctuance or drainage.) Neurological: No New Focal Deficit Psy/Mental Status: Alert, Normal Affect, Normal Mood - Problem List & Annotations (1) Diabetic foot ulcers SNOMED Code(s): 733131206 Code(s): E11.621 - TYPE 2 DIABETES MELLITUS WITH FOOT ULCER; L97.509 - NON- PRESSURE CHRONIC ULCER OTH PRT UNSP FOOT W UNSP SEVERITY Status: Acute Priority: Medium Current Visit: No Qualifiers: Diabetic foot ulcer location: heel Diabetes mellitus type: type 1 Laterality: right Non-pressure ulcer stage: with fat layer exposed Qualified Code(s): E10.621 - Type 1 diabetes mellitus with foot ulcer; L97.412 - Non-pressure chronic ulcer of right heel and midfoot with fat layer exposed; L97.412 - Non-pressure chronic ulcer of right heel and midfoot with fat layer exposed; L97.412 - Non-pressure chronic ulcer of right heel and midfoot with fat layer exposed; L97.412 - Non-pressure chronic ulcer of right heel and midfoot with fat layer exposed (2) Diabetes mellitus type I SNOMED Code(s): 22963350 Code(s): E10.9 - TYPE 1 DIABETES MELLITUS WITHOUT COMPLICATIONS Status: Chronic Current Visit: No Qualifiers: Diabetes mellitus complication status: with kidney complications Diabetes mellitus complication detail: with chronic kidney disease (3) Chronic renal insufficiency SNOMED Code(s): 124445856 Code(s): N18.9 - CHRONIC KIDNEY DISEASE, UNSPECIFIED Status: Chronic Current Visit: No - Problem List Review Problem List Initiated/Reviewed/Updated: Yes - My Orders Last 24 Hours: My Active Orders 10/07/17 16:18 Patient Status [ADT] Routine Up ad Ruth [RC] ASDIRECTED VTE/DVT Education [RC] PER UNIT ROUTINE Vital Signs [RC] Q4H Acetaminophen [Tylenol] 650 mg PO Q4H PRN Sodium Chloride 0.9% [Saline Flush] 10 ml FLUSH ASDIRECTED PRN Sodium Chloride 0.9% [Saline Flush] 2.5 ml FLUSH ASDIRECTED PRN oxyCODONE 5 mg PO Q4H PRN Saline Lock Insert [OM.PC] Routine Resuscitation Status Routine 10/07/17 16:19 Intake and Output [RC] Q12H 10/07/17 16:29 Blood Glucose Check, Bedside [RC] Q1HR 10/07/17 16:30 Foot wo Cont Rt [MR] Urgent Vancomycin Pharmacy to Dose [Pharmacy to Dose - Vancomycin] 1 dose .XX ASDIRECTED 10/07/17 17:00 Insulin Aspart [NovoLOG] See Protocol SUBCUT TIDAC 10/07/17 17:20 Notify Provider Consults [RC] ASDIRECTED Consult to Physician [CONS] Routine 10/07/17 17:31 Elevate Extremity [RC] BID 10/07/17 18:15 CULTURE WOUND [RM] Routine 10/07/17 20:00 Blood Glucose Check, Bedside [RC] TIDAC 10/07/17 21:00 Doxazosin [Cardura] 2 mg PO BEDTIME 10/07/17 Dinner [employer] Diet [DIET] 10/08/17 07:30 Omeprazole 40 mg PO ACBREAKFAST 10/08/17 09:00 Enalapril [Vasotec] 40 mg PO DAILY Insulin Glarg,Human.Rec.Analog [LantUS Solostar] 20 units SUBCUT DAILY Spironolactone [Aldactone] 25 mg PO DAILY Torsemide [Demadex] 20 mg PO DAILY amLODIPine [Norvasc] 10 mg PO DAILY 10/09/17 05:11 BMP [BASIC METABOLIC PANEL,BMP] [CHEM] AM CBC WITH AUTO DIFF [HEME] AM 10/10/17 05:11 BMP [BASIC METABOLIC PANEL,BMP] [CHEM] AM CBC WITH AUTO DIFF [HEME] AM - Plan Plan:: This 32 year old male admitted with diabetic foot ulcers 1. Diabetic foot ulcers: All ulcers dry. Continue Vancomycin. Dr English consulted , I appreciate his assistance. MRI of R foot Heel ulcer with associated skin thickening. No underlying fluid collection or osteomyelitis, generalized soft tissue edema, bone marrow edema with within the midfoot and involving the calcaneus may relate to stress related change or neuropathic change. No fracture , Initial muscle edema may relate to diabetic muscle changes, Mild degenerative changes of the 1st metatarsophalangeal joint. Joint spaces appear otherwise maintained. No leukocytosis or fevers. Edema to lower legs improved slightly. Continue elevation of lower extremities to reduce edema. Dressing changes per Dr English recommendations 2. DM type 1: BS better today. Will add patients home SSI with carb correction with meals. Lantus 30 units daily, may increase to 38 but lower due to hypoglycemia event yesterday. 3. HTN: elevated this am. Continue home medications 4. CKD: Stable At baseline now. WIll monitor closely with Vancomycin. 5. Anemia: Iron deficiency anemia combined with anemia of chronic disease. Iron studies obtained 09/26 admission. Will give Venofer 200 mg today and start PO iron supplementation. Is not symptomatic or bleeding. Will hold off on blood transfusion for now. Patient understanding and agrees for now. VTE prophylaxis: Will likely order heparin, will hold off until seen by Dr English in case of OR debridement needed.
[2017-10-08] MEDS ORDERED: Insulin Glargine,Human Rec. Analog 100 Units/ML 3 ML Pen SUBCUT SCH ×3 (09:00)
[2017-10-08] MEDS ORDERED: TOUJEO 300 UNITS/ML SUBCUT SCH (09:00)
[2017-10-08] MEDS ORDERED: amLODIPine 5 MG Tab PO SCH (09:00)
[2017-10-08] MEDS ORDERED: Spironolactone 25 MG Tab PO SCH (09:00)
[2017-10-08] MEDS ORDERED: Torsemide 20 MG Tab PO SCH (09:00)
[2017-10-08] MEDS ORDERED: Iron Sucrose Complex 200 MG in Sodium Chloride 0.9% 100 ML IV ONE (11:33)
[2017-10-08 13:53] VITALS: BP 156/104
--- NOTE | 2017-10-08 14:57 | PCM.DCSUM1 ---
Discharge Summary - Hospital Course Brief History: This 32 year old AA male, who is well known to our facility and with pmh of DM type 1, CKD, HTN and DM foot ulcers presented initially to Dr Infante's office with concerns about his foot ulcers. He was sent to Podiatry with Dr Bray who recommended admission for IV antibiotics. He reports he was here a couple weeks ago with similar concerns but was sent home after a couple day admission. He reports the pain to his R foot is 6/10 currently. He denies fevers at home, no cough, URI, abdominal pain or trouble urinating. He has been complaint with medications. His Toujeo dosing was just decreased today by Diabetic Education to 38 units daily due to hypoglycemia during the night. He denies purulent drainage to these ulcers and no other rashes. Labwork was obtained today in the clinic for pending blood transfusion tomorrow at 0800 due to hgb 8.6. Todays labwork revealed no leukocytosis, 8,310. Hgb 8.5, platelets 346. BUN 47, Cr 1.4 (which is baseline) Na 132, CRP 0.44. He was noted to have blood sugar of 24 in the clinic, he was given juice and candy. He arrived to our floor alert but lethargic and groggy. BS rechecked and noted to be 77, he was given juice and milk along with peanut butter. He started becoming more alert and feeling less groggy. He was able to communicate well and discuss history as well. - Discharge Data Discharge Date: 10/08/17 Discharge Disposition: Home, Self-Care 01 Condition: Good - Discharge Diagnosis/Problem(s) (1) Diabetic foot ulcers SNOMED Code(s): 474932347 ICD Code: E11.621 - TYPE 2 DIABETES MELLITUS WITH FOOT ULCER; L97.509 - NON- PRESSURE CHRONIC ULCER OTH PRT UNSP FOOT W UNSP SEVERITY Status: Acute Priority: Medium Current Visit: No Qualifiers: Diabetic foot ulcer location: heel Diabetes mellitus type: type 1 Laterality: right Non-pressure ulcer stage: with fat layer exposed Qualified Code(s): E10.621 - Type 1 diabetes mellitus with foot ulcer; L97.412 - Non-pressure chronic ulcer of right heel and midfoot with fat layer exposed; L97.412 - Non-pressure chronic ulcer of right heel and midfoot with fat layer exposed; L97.412 - Non-pressure chronic ulcer of right heel and midfoot with fat layer exposed; L97.412 - Non-pressure chronic ulcer of right heel and midfoot with fat layer exposed (2) Diabetes mellitus type I SNOMED Code(s): 22080458 ICD Code: E10.9 - TYPE 1 DIABETES MELLITUS WITHOUT COMPLICATIONS Status: Chronic Current Visit: No Qualifiers: Diabetes mellitus complication status: with kidney complications Diabetes mellitus complication detail: with chronic kidney disease (3) Chronic renal insufficiency SNOMED Code(s): 362290960 ICD Code: N18.9 - CHRONIC KIDNEY DISEASE, UNSPECIFIED Status: Chronic Current Visit: No - Patient Summary/Data Consults: Consultations 10/07/17 17:20 Consult to Physician [CONS] Routine - Patient Instructions Diet: Diabetic Diet Activity: As Tolerated, Rest and Relax Today Driving: May Drive Today Showering/Bathing: May Shower Wound/Incision Care: Change Dressing Daily (Dry gauze dressings to bilateral feet. Keep clean. Elevate extremities as much as possible. ) Notify Provider of: Fever, Increased Pain, Swelling and Redness, Drainage, Nausea and/or Vomiting - Discharge Plan Prescriptions/Med Rec: Cephalexin [Keflex] 500 mg PO BID #14 cap Iron Polysaccharide Complex [Polysaccharide Iron 150] 150 mg PO DAILY #30 capsule Home Medications: Home Meds Omeprazole Magnesium [Prilosec Otc] 40 mg PO DAILY 07/15/17 [History] Doxazosin [Cardura] 2 mg PO DAILY 09/25/17 [History] Enalapril [Vasotec] 40 mg PO DAILY 09/25/17 [History] Insulin Glargine,Hum.Rec.Anlog [Toupat Solostar] 38 unit SQ DAILY 09/25/17 [ History] Spironolactone [Aldactone] 25 mg PO DAILY 09/25/17 [History] Torsemide 20 mg PO DAILY 09/25/17 [History] amLODIPine Besylate [Amlodipine Besylate] 10 mg PO DAILY 09/25/17 [History] Insulin Aspart [NovoLOG] 0 unit SUBCUT ASDIRECTED 10/07/17 [History] Cephalexin [Keflex] 500 mg PO BID #14 cap 10/08/17 [Rx] Iron Polysaccharide Complex [Polysaccharide Iron 150] 150 mg PO DAILY #30 capsule 10/08/17 [Rx] Patient Handouts: Insulin Treatment for Diabetes, Diabetes and Foot Care, Peripheral Neuropathy Referrals: Andres English DPM [Physician] - 10/15/17 8:15 am - Discharge Summary/Plan Comment DC Time >30 min.: No Discharge Summary/Plan Comment: Discharge Diagnoses: DM foot ulcers to R heel and lateral edge, along with L 5th metatarsal DM type 1- non complaint HTN CKD Anemia iron deficiency and chronic disease Waqas was admitted for possible infected DM ulcers to bilateral feet. Most worrisome is R heel ulcer. He was admitted and treated with Vancomycin. Dr English consulted, please see consultation note. No cellulitis or purulent drainage noted. Soft tissue edema noted. CUlture obtain by Dr English from R heel. No results yet. Waqas remains afebrile and no leukocytosis. Ulcers remain dry with no drainage or erythema noted. He will be discharged home today with 7 days of Keflex and follow up next week with Dr English for further treatment and assessment. He is to keep off feet as possible and keep legs elevated as much as possible to reduce edema. He is to keep ulcers dry and clean , placing dry guaze dressings per Dr English's recommendations. He was given IV Venofer infusion due to iron of 40 and started on oral iron supplementation. He was not transfused as inpatient, since he was not actively bleeding or symptomatic from anemia. he is to follow up with PCP as scheduled. He is to change Tuojeo dosing as discussed with DM educator and keep SSI with carb correction ratio. He is to return to ED or clinic if concerns arise. - General Info Date of Service: 10/08/17 Admission Dx/Problem (Free Text: Admission Diagnosis/Problem Admission Diagnosis/Problem Foot ulcer Subjective Update: DOing well, visited with Dr English and is ok with discharge home. No concerns. Functional Status: Reports: Pain Controlled, Tolerating Diet, Ambulating, Urinating - Review of Systems General: Reports: No Symptoms. Denies: Fever Pulmonary: Reports: No Symptoms. Denies: Shortness of Breath Cardiovascular: Reports: No Symptoms. Denies: Chest Pain Gastrointestinal: Reports: No Symptoms. Denies: Abdominal Pain, Melena, Nausea , Vomiting Genitourinary: Reports: No Symptoms Musculoskeletal: Reports: No Symptoms Skin: Reports: No Symptoms. Denies: Cyanosis Neurological: Reports: No Symptoms. Denies: Confusion Psychiatric: Reports: No Symptoms. Denies: Confusion - Patient Data Vitals - Most Recent: Last Vital Signs Temp 98.7 F 10/08/17 13:00 Pulse 106 H 10/08/17 13:00 Resp 18 10/08/17 13:00 BP 156/104 H 10/08/17 13:00 Pulse Ox 99 10/08/17 13:00 Weight - Most Recent: 87.815 kg I&O - Last 24 hours: Intake & Output 10/07/17 10/08/17 10/08/17 22:59 06:59 14:59 Intake Total 500 350 Balance 500 350 Lab Results - Last 24 hrs: Laboratory Results - last 24 hr 10/07/17 10/07/17 10/07/17 Range/Units 13:33 13:33 17:04 WBC 8.63 (4.0-11.0) K/uL RBC 4.17 L (4.50-5.90) M/uL Hgb 8.6 L (13.0-17.0) g/dL Hct 27.4 L (38.0-50.0) % MCV 65.7 L (80.0-98.0) fL MCH 20.6 L (27.0-32.0) pg MCHC 31.4 (31.0-37.0) g/dL RDW Std Deviation 40.6 (28.0-62.0) fl RDW Coeff of Dania 17 H (11.0-15.0) % Plt Count 359 (150-400) K/uL MPV 9.90 (7.40-12.00) fL Neut % (Auto) 61.5 (48.0-80.0) % Lymph % (Auto) 29.0 (16.0-40.0) % [place] % (Auto) 5.3 (0.0-15.0) % Eos % (Auto) 3.7 (0.0-7.0) % Baso % (Auto) 0.5 (0.0-1.5) % Neut # (Auto) 5.3 (1.4-5.7) K/uL Lymph # (Auto) 2.5 H (0.6-2.4) K/uL [place] # (Auto) 0.5 (0.0-0.8) K/uL Eos # (Auto) 0.3 (0.0-0.7) K/uL Baso # (Auto) 0.0 (0.0-0.1) K/uL Nucleated RBC % 0.0 /100WBC Nucleated RBCs # 0 K/uL ESR 91 H (0-14) mm/hr Sodium 132 L (136-146) mmol/L Potassium 4.5 (3.5-5.1) mmol/L Chloride 102 (98-110) mmol/L Carbon Dioxide 24 (21-31) mmol/L BUN 47 H (6.0-23.0) mg/dL Creatinine 1.4 (0.6-1.5) mg/dL Est Cr Clr Drug Dosing TNP Estimated GFR (MDRD) > 60.0 ml/min Glucose 171 H (60-110) mg/dL POC Glucose 84 (60-110) mg/dL Calcium 8.8 (8.8-10.8) mg/dL Total Bilirubin 0.2 (0.1-1.5) mg/dL AST 20 (5-40) IU/L ALT 17 (8-54) IU/L Alkaline Phosphatase 105 (40-150) C-Reactive Protein 0.55 H (0.0-0.5) mg/dL Total Protein 7.2 (6.0-8.0) g/dL Albumin 3.4 L (3.5-5.0) g/dL Globulin 3.8 H (2.0-3.5) g/dL Albumin/Globulin Ratio 0.9 L (1.3-2.8) 10/07/17 10/07/17 10/07/17 Range/Units 17:52 19:04 20:43 WBC (4.0-11.0) K/uL RBC (4.50-5.90) M/uL Hgb (13.0-17.0) g/dL Hct (38.0-50.0) % MCV (80.0-98.0) fL MCH (27.0-32.0) pg MCHC (31.0-37.0) g/dL RDW Std Deviation (28.0-62.0) fl RDW Coeff of Dania (11.0-15.0) % Plt Count (150-400) K/uL MPV (7.40-12.00) fL Neut % (Auto) (48.0-80.0) % Lymph % (Auto) (16.0-40.0) % [place] % (Auto) (0.0-15.0) % Eos % (Auto) (0.0-7.0) % Baso % (Auto) (0.0-1.5) % Neut # (Auto) (1.4-5.7) K/uL Lymph # (Auto) (0.6-2.4) K/uL [place] # (Auto) (0.0-0.8) K/uL Eos # (Auto) (0.0-0.7) K/uL Baso # (Auto) (0.0-0.1) K/uL Nucleated RBC % /100WBC Nucleated RBCs # K/uL ESR (0-14) mm/hr Sodium (136-146) mmol/L Potassium (3.5-5.1) mmol/L Chloride (98-110) mmol/L Carbon Dioxide (21-31) mmol/L BUN (6.0-23.0) mg/dL Creatinine (0.6-1.5) mg/dL Est Cr Clr Drug Dosing Estimated GFR (MDRD) ml/min Glucose (60-110) mg/dL POC Glucose 100 141 H 154 H (60-110) mg/dL Calcium (8.8-10.8) mg/dL Total Bilirubin (0.1-1.5) mg/dL AST (5-40) IU/L ALT (8-54) IU/L Alkaline Phosphatase (40-150) C-Reactive Protein (0.0-0.5) mg/dL Total Protein (6.0-8.0) g/dL Albumin (3.5-5.0) g/dL Globulin (2.0-3.5) g/dL Albumin/Globulin Ratio (1.3-2.8) 10/08/17 10/08/17 10/08/17 Range/Units 04:43 04:43 06:23 WBC 5.45 (4.0-11.0) K/uL RBC 4.06 L (4.50-5.90) M/uL Hgb 8.3 L (13.0-17.0) g/dL Hct 26.9 L (38.0-50.0) % MCV 66.3 L (80.0-98.0) fL MCH 20.4 L (27.0-32.0) pg MCHC 30.9 L (31.0-37.0) g/dL RDW Std Deviation 40.6 (28.0-62.0) fl RDW Coeff of Dania 17 H (11.0-15.0) % Plt Count 350 (150-400) K/uL MPV 9.50 (7.40-12.00) fL Neut % (Auto) 52.4 (48.0-80.0) % Lymph % (Auto) 35.6 (16.0-40.0) % [place] % (Auto) 5.9 (0.0-15.0) % Eos % (Auto) 5.5 (0.0-7.0) % Baso % (Auto) 0.6 (0.0-1.5) % Neut # (Auto) 2.9 (1.4-5.7) K/uL Lymph # (Auto) 1.9 (0.6-2.4) K/uL [place] # (Auto) 0.3 (0.0-0.8) K/uL Eos # (Auto) 0.3 (0.0-0.7) K/uL Baso # (Auto) 0.0 (0.0-0.1) K/uL Nucleated RBC % 0.0 /100WBC Nucleated RBCs # 0 K/uL ESR (0-14) mm/hr Sodium 141 (136-146) mmol/L Potassium 4.4 (3.5-5.1) mmol/L Chloride 111 H (98-110) mmol/L Carbon Dioxide 23 (21-31) mmol/L BUN 27 H (6.0-23.0) mg/dL Creatinine 0.9 (0.6-1.5) mg/dL Est Cr Clr Drug Dosing 118.92 Estimated GFR (MDRD) > 60.0 ml/min Glucose 66 (60-110) mg/dL POC Glucose 110 (60-110) mg/dL Calcium 8.7 L (8.8-10.8) mg/dL Total Bilirubin (0.1-1.5) mg/dL AST (5-40) IU/L ALT (8-54) IU/L Alkaline Phosphatase (40-150) C-Reactive Protein (0.0-0.5) mg/dL Total Protein (6.0-8.0) g/dL Albumin (3.5-5.0) g/dL Globulin (2.0-3.5) g/dL Albumin/Globulin Ratio (1.3-2.8) 10/08/17 10/08/17 10/08/17 Range/Units 08:19 09:28 11:35 WBC (4.0-11.0) K/uL RBC (4.50-5.90) M/uL Hgb (13.0-17.0) g/dL Hct (38.0-50.0) % MCV (80.0-98.0) fL MCH (27.0-32.0) pg MCHC (31.0-37.0) g/dL RDW Std Deviation (28.0-62.0) fl RDW Coeff of Dania (11.0-15.0) % Plt Count (150-400) K/uL MPV (7.40-12.00) fL Neut % (Auto) (48.0-80.0) % Lymph % (Auto) (16.0-40.0) % [place] % (Auto) (0.0-15.0) % Eos % (Auto) (0.0-7.0) % Baso % (Auto) (0.0-1.5) % Neut # (Auto) (1.4-5.7) K/uL Lymph # (Auto) (0.6-2.4) K/uL [place] # (Auto) (0.0-0.8) K/uL Eos # (Auto) (0.0-0.7) K/uL Baso # (Auto) (0.0-0.1) K/uL Nucleated RBC % /100WBC Nucleated RBCs # K/uL ESR (0-14) mm/hr Sodium (136-146) mmol/L Potassium (3.5-5.1) mmol/L Chloride (98-110) mmol/L Carbon Dioxide (21-31) mmol/L BUN (6.0-23.0) mg/dL Creatinine (0.6-1.5) mg/dL Est Cr Clr Drug Dosing Estimated GFR (MDRD) ml/min Glucose (60-110) mg/dL POC Glucose 191 H 212 H 143 H (60-110) mg/dL Calcium (8.8-10.8) mg/dL Total Bilirubin (0.1-1.5) mg/dL AST (5-40) IU/L ALT (8-54) IU/L Alkaline Phosphatase (40-150) C-Reactive Protein (0.0-0.5) mg/dL Total Protein (6.0-8.0) g/dL Albumin (3.5-5.0) g/dL Globulin (2.0-3.5) g/dL Albumin/Globulin Ratio (1.3-2.8) 10/08/17 Range/Units 13:13 WBC (4.0-11.0) K/uL RBC (4.50-5.90) M/uL Hgb (13.0-17.0) g/dL Hct (38.0-50.0) % MCV (80.0-98.0) fL MCH (27.0-32.0) pg MCHC (31.0-37.0) g/dL RDW Std Deviation (28.0-62.0) fl RDW Coeff of Dania (11.0-15.0) % Plt Count (150-400) K/uL MPV (7.40-12.00) fL Neut % (Auto) (48.0-80.0) % Lymph % (Auto) (16.0-40.0) % [place] % (Auto) (0.0-15.0) % Eos % (Auto) (0.0-7.0) % Baso % (Auto) (0.0-1.5) % Neut # (Auto) (1.4-5.7) K/uL Lymph # (Auto) (0.6-2.4) K/uL [place] # (Auto) (0.0-0.8) K/uL Eos # (Auto) (0.0-0.7) K/uL Baso # (Auto) (0.0-0.1) K/uL Nucleated RBC % /100WBC Nucleated RBCs # K/uL ESR (0-14) mm/hr Sodium (136-146) mmol/L Potassium (3.5-5.1) mmol/L Chloride (98-110) mmol/L Carbon Dioxide (21-31) mmol/L BUN (6.0-23.0) mg/dL Creatinine (0.6-1.5) mg/dL Est Cr Clr Drug Dosing Estimated GFR (MDRD) ml/min Glucose (60-110) mg/dL POC Glucose 84 (60-110) mg/dL Calcium (8.8-10.8) mg/dL Total Bilirubin (0.1-1.5) mg/dL AST (5-40) IU/L ALT (8-54) IU/L Alkaline Phosphatase (40-150) C-Reactive Protein (0.0-0.5) mg/dL Total Protein (6.0-8.0) g/dL Albumin (3.5-5.0) g/dL Globulin (2.0-3.5) g/dL Albumin/Globulin Ratio (1.3-2.8) Med Orders - Current: Current Medications Acetaminophen (Tylenol) 650 mg PO Q4H PRN PRN Reason: Pain (mild 1-3) Amlodipine Besylate (Norvasc) 10 mg PO DAILY [facility] Last Admin: 10/08/17 08:41 Dose: 10 mg Doxazosin Mesylate (Cardura) 2 mg PO BEDTIME [facility] Last Admin: 10/07/17 20:40 Dose: 2 mg Enalapril Maleate (Vasotec) 40 mg PO DAILY [facility] Last Admin: 10/08/17 08:39 Dose: 40 mg Vancomycin HCl 1,250 mg/ (Sodium Chloride) 250 mls @ 166.667 mls/hr IV Q8H [facility] Last Admin: 10/08/17 14:11 Dose: 166.667 mls/hr Insulin Aspart (Novolog) 0 unit SUBCUT TIDAC [facility] PRN Reason: Protocol Last Admin: 10/08/17 13:20 Dose: Not Given Insulin Glargine (Lantus Solostar) 30 units SUBCUT DAILY [facility] Last Admin: 10/08/17 09:31 Dose: 30 units Omeprazole (Omeprazole) 40 mg PO ACBREAKFAST [facility] Last Admin: 10/08/17 06:41 Dose: 40 mg Oxycodone HCl (Oxycodone) 5 mg PO Q4H PRN PRN Reason: Pain (moderate 4-6) Sodium Chloride (Saline Flush) 10 ml FLUSH ASDIRECTED PRN PRN Reason: Keep Vein Open Sodium Chloride (Saline Flush) 2.5 ml FLUSH ASDIRECTED PRN PRN Reason: Keep Vein Open Spironolactone (Aldactone) 25 mg PO DAILY [facility] Last Admin: 10/08/17 08:41 Dose: 25 mg Torsemide (Demadex) 20 mg PO DAILY [facility] Last Admin: 10/08/17 08:41 Dose: 20 mg Vancomycin HCl (Pharmacy To Dose - Vancomycin) 1 dose .XX ASDIRECTED [facility] Discontinued Medications Heparin Sodium (Porcine) (Heparin Sodium) 5,000 units SUBCUT Q12HR [facility] Vancomycin HCl 1,250 mg/ (Sodium Chloride) 500 mls @ 333.333 mls/hr IV Q12H [facility] Vancomycin HCl 1,250 mg/ (Sodium Chloride) 500 mls @ 333.333 mls/hr IV Q12H [facility] Last Admin: 10/08/17 04:55 Dose: 333.333 mls/hr Vancomycin HCl 1,250 mg/ (Sodium Chloride) 250 mls @ 166.667 mls/hr IV Q8H [facility] Last Admin: 10/08/17 13:39 Dose: Not Given Iron Sucrose 200 mg/ Sodium (Chloride) 110 mls @ 110 mls/hr IV ONETIME ONE Stop: 10/08/17 12:32 Last Admin: 10/08/17 12:40 Dose: 110 mls/hr Insulin Aspart (Novolog) 0 unit SUBCUT TIDAC [facility] PRN Reason: Protocol Last Admin: 10/08/17 06:34 Dose: Not Given Insulin Glargine (Lantus Solostar) 38 units SUBCUT DAILY [facility] Insulin Glargine (Lantus Solostar) 20 units SUBCUT DAILY [facility] Toujeo 300 Units/Ml 0 each SUBCUT DAILY [facility] - Exam General: Reports: Alert, Oriented, Cooperative, No Acute Distress Neck: Reports: Supple Lungs: Reports: Clear to Auscultation, Normal Respiratory Effort Cardiovascular: Reports: Regular Rate, Regular Rhythm Skin: Reports: Warm, Dry, Intact Wound/Incisions: Reports: Dressing Dry and Intact (to R foot and L foot. ), No Drainage. Denies: Erythema Psy/Mental Status: Reports: Alert, Normal Affect, Normal Mood *Q Meaningful Use (DIS) - VTE *Q VTE Criteria *Q: - Stroke *Q Stroke Criteria *Q: - AMI *Q AMI Criteria *Q:
--- NOTE | 2017-10-08 16:09 | MR ---
EXAM DATE: 10/07/17 PATIENT'S AGE: 32 Patient: DAWOOD DUCKWORTH Facility: [place], [place] Site . Site : [id number] Study: MRI Extremity Right [id number]/24/2018 8:45:43 PM Ordering Physician: Jose D Solares Final Report: HISTORY: Diabetic foot ulcer. TECHNIQUE: Axial, sagittal and coronal T1, proton density, proton density fat-sat and STIR images were obtained of the right foot without contrast administration. COMPARISON: Radiographs 07/20/2017. FINDINGS: An ulcer is noted along the plantar lateral aspect of the heel. There is associated skin thickening. No underlying fluid collection. No osteomyelitis. Generalized soft tissue edema is noted involving the lower leg, hindfoot, midfoot and forefoot. There is bone marrow edema present within the cuneiform bones, cuboid bone, navicular bone and a portion of the calcaneus which may relate to stress related change or neuropathic change. There is no discrete fracture. - No findings of septic arthritis. There are mild degenerative changes of the 1st metatarsophalangeal joint. The joint spaces appear otherwise maintained. - The tendons are intact. Interstitial muscle edema involving foot musculature may relate to diabetic muscle changes. No significant muscle atrophy. IMPRESSION: 1. Heel ulcer with associated skin thickening. No underlying fluid collection or osteomyelitis. 2. Generalized soft tissue edema. 3. Bone marrow edema with within the midfoot and involving the calcaneus may relate to stress related change or neuropathic change. No fracture. 4. Initial muscle edema may relate to diabetic muscle changes. 5. Mild degenerative changes of the 1st metatarsophalangeal joint. Joint spaces appear otherwise maintained. Dictated by Roberto Harris MD @ Oct 08 2017 7:58AM (Electronic Signature) Report Signed by Proxy. INOCENTE
--- NOTE | 2017-10-08 19:05 | PCM.CONSN ---
- General Info Date of Service: 10/08/17 (patient seen at 14:30) Admission Dx/Problem (Free Text): Admission Diagnosis/Problem Admission Diagnosis/Problem Foot ulcer Subjective Update: Patient is feeling well and has no complaints at this time. - Patient Data Vitals - Most Recent: Last Vital Signs Temp 37.1 C 10/08/17 13:00 Pulse 106 H 10/08/17 13:00 Resp 18 10/08/17 13:00 BP 156/104 H 10/08/17 13:00 Pulse Ox 99 10/08/17 13:00 Weight - Most Recent: 87.815 kg I&O - Last 24 Hours: Intake & Output 10/08/17 10/08/17 10/08/17 06:59 14:59 22:59 Intake Total 350 600 Output Total 800 Balance 350 -200 Lab Results Last 24 Hours: Laboratory Results - last 24 hr 10/07/17 10/07/17 10/08/17 Range/Units 19:04 20:43 04:43 WBC 5.45 (4.0-11.0) K/uL RBC 4.06 L (4.50-5.90) M/uL Hgb 8.3 L (13.0-17.0) g/dL Hct 26.9 L (38.0-50.0) % MCV 66.3 L (80.0-98.0) fL MCH 20.4 L (27.0-32.0) pg MCHC 30.9 L (31.0-37.0) g/dL RDW Std Deviation 40.6 (28.0-62.0) fl RDW Coeff of Dania 17 H (11.0-15.0) % Plt Count 350 (150-400) K/uL MPV 9.50 (7.40-12.00) fL Neut % (Auto) 52.4 (48.0-80.0) % Lymph % (Auto) 35.6 (16.0-40.0) % Carter % (Auto) 5.9 (0.0-15.0) % Eos % (Auto) 5.5 (0.0-7.0) % Baso % (Auto) 0.6 (0.0-1.5) % Neut # (Auto) 2.9 (1.4-5.7) K/uL Lymph # (Auto) 1.9 (0.6-2.4) K/uL Carter # (Auto) 0.3 (0.0-0.8) K/uL Eos # (Auto) 0.3 (0.0-0.7) K/uL Baso # (Auto) 0.0 (0.0-0.1) K/uL Nucleated RBC % 0.0 /100WBC Nucleated RBCs # 0 K/uL Sodium (136-146) mmol/L Potassium (3.5-5.1) mmol/L Chloride (98-110) mmol/L Carbon Dioxide (21-31) mmol/L BUN (6.0-23.0) mg/dL Creatinine (0.6-1.5) mg/dL Est Cr Clr Drug Dosing mL/min Estimated GFR (MDRD) ml/min Glucose (60-110) mg/dL POC Glucose 141 H 154 H (60-110) mg/dL Calcium (8.8-10.8) mg/dL 10/08/17 10/08/17 10/08/17 Range/Units 04:43 06:23 08:19 WBC (4.0-11.0) K/uL RBC (4.50-5.90) M/uL Hgb (13.0-17.0) g/dL Hct (38.0-50.0) % MCV (80.0-98.0) fL MCH (27.0-32.0) pg MCHC (31.0-37.0) g/dL RDW Std Deviation (28.0-62.0) fl RDW Coeff of Dania (11.0-15.0) % Plt Count (150-400) K/uL MPV (7.40-12.00) fL Neut % (Auto) (48.0-80.0) % Lymph % (Auto) (16.0-40.0) % Carter % (Auto) (0.0-15.0) % Eos % (Auto) (0.0-7.0) % Baso % (Auto) (0.0-1.5) % Neut # (Auto) (1.4-5.7) K/uL Lymph # (Auto) (0.6-2.4) K/uL Carter # (Auto) (0.0-0.8) K/uL Eos # (Auto) (0.0-0.7) K/uL Baso # (Auto) (0.0-0.1) K/uL Nucleated RBC % /100WBC Nucleated RBCs # K/uL Sodium 141 (136-146) mmol/L Potassium 4.4 (3.5-5.1) mmol/L Chloride 111 H (98-110) mmol/L Carbon Dioxide 23 (21-31) mmol/L BUN 27 H (6.0-23.0) mg/dL Creatinine 0.9 (0.6-1.5) mg/dL Est Cr Clr Drug Dosing 118.92 mL/min Estimated GFR (MDRD) > 60.0 ml/min Glucose 66 (60-110) mg/dL POC Glucose 110 191 H (60-110) mg/dL Calcium 8.7 L (8.8-10.8) mg/dL 10/08/17 10/08/17 10/08/17 Range/Units 09:28 11:35 13:13 WBC (4.0-11.0) K/uL RBC (4.50-5.90) M/uL Hgb (13.0-17.0) g/dL Hct (38.0-50.0) % MCV (80.0-98.0) fL MCH (27.0-32.0) pg MCHC (31.0-37.0) g/dL RDW Std Deviation (28.0-62.0) fl RDW Coeff of Dania (11.0-15.0) % Plt Count (150-400) K/uL MPV (7.40-12.00) fL Neut % (Auto) (48.0-80.0) % Lymph % (Auto) (16.0-40.0) % Carter % (Auto) (0.0-15.0) % Eos % (Auto) (0.0-7.0) % Baso % (Auto) (0.0-1.5) % Neut # (Auto) (1.4-5.7) K/uL Lymph # (Auto) (0.6-2.4) K/uL Carter # (Auto) (0.0-0.8) K/uL Eos # (Auto) (0.0-0.7) K/uL Baso # (Auto) (0.0-0.1) K/uL Nucleated RBC % /100WBC Nucleated RBCs # K/uL Sodium (136-146) mmol/L Potassium (3.5-5.1) mmol/L Chloride (98-110) mmol/L Carbon Dioxide (21-31) mmol/L BUN (6.0-23.0) mg/dL Creatinine (0.6-1.5) mg/dL Est Cr Clr Drug Dosing mL/min Estimated GFR (MDRD) ml/min Glucose (60-110) mg/dL POC Glucose 212 H 143 H 84 (60-110) mg/dL Calcium (8.8-10.8) mg/dL Med Orders - Current: Current Medications Discontinued Medications Acetaminophen (Tylenol) 650 mg PO Q4H PRN PRN Reason: Pain (mild 1-3) Amlodipine Besylate (Norvasc) 10 mg PO DAILY [facility] Last Admin: 10/08/17 08:41 Dose: 10 mg Doxazosin Mesylate (Cardura) 2 mg PO BEDTIME [facility] Last Admin: 10/07/17 20:40 Dose: 2 mg Enalapril Maleate (Vasotec) 40 mg PO DAILY [facility] Last Admin: 10/08/17 08:39 Dose: 40 mg Heparin Sodium (Porcine) (Heparin Sodium) 5,000 units SUBCUT Q12HR [facility] Vancomycin HCl 1,250 mg/ (Sodium Chloride) 500 mls @ 333.333 mls/hr IV Q12H [facility] Vancomycin HCl 1,250 mg/ (Sodium Chloride) 500 mls @ 333.333 mls/hr IV Q12H [facility] Last Admin: 10/08/17 04:55 Dose: 333.333 mls/hr Vancomycin HCl 1,250 mg/ (Sodium Chloride) 250 mls @ 166.667 mls/hr IV Q8H [facility] Last Admin: 10/08/17 13:39 Dose: Not Given Iron Sucrose 200 mg/ Sodium (Chloride) 110 mls @ 110 mls/hr IV ONETIME ONE Stop: 10/08/17 12:32 Last Admin: 10/08/17 12:40 Dose: 110 mls/hr Vancomycin HCl 1,250 mg/ (Sodium Chloride) 250 mls @ 166.667 mls/hr IV Q8H [facility] Last Admin: 10/08/17 14:11 Dose: 166.667 mls/hr Insulin Aspart (Novolog) 0 unit SUBCUT TIDAC [facility] PRN Reason: Protocol Last Admin: 10/08/17 06:34 Dose: Not Given Insulin Aspart (Novolog) 0 unit SUBCUT TIDAC MICHAEL PRN Reason: Protocol Last Admin: 10/08/17 17:12 Dose: Not Given Insulin Glargine (Lantus Solostar) 38 units SUBCUT DAILY [facility] Insulin Glargine (Lantus Solostar) 20 units SUBCUT DAILY [facility] Insulin Glargine (Lantus Solostar) 30 units SUBCUT DAILY [facility] Last Admin: 10/08/17 09:31 Dose: 30 units Omeprazole (Omeprazole) 40 mg PO ACBREAKFAST [facility] Last Admin: 10/08/17 06:41 Dose: 40 mg Oxycodone HCl (Oxycodone) 5 mg PO Q4H PRN PRN Reason: Pain (moderate 4-6) Toujeo 300 Units/Ml 0 each SUBCUT DAILY [facility] Sodium Chloride (Saline Flush) 10 ml FLUSH ASDIRECTED PRN PRN Reason: Keep Vein Open Sodium Chloride (Saline Flush) 2.5 ml FLUSH ASDIRECTED PRN PRN Reason: Keep Vein Open Spironolactone (Aldactone) 25 mg PO DAILY [facility] Last Admin: 10/08/17 08:41 Dose: 25 mg Torsemide (Demadex) 20 mg PO DAILY [facility] Last Admin: 10/08/17 08:41 Dose: 20 mg Vancomycin HCl (Pharmacy To Dose - Vancomycin) 1 dose .XX ASDIRECTED [facility] - Exam Peripheral Pulses: 1+: Posterior Tibial (L), Posterior Tibial (R), Dorsalis Pedis (L), Dorsalis Pedis (R) Skin: Warm, Dry Wound/Incisions: No Drainage Neurological: Sensation Intact Physical Findings Comments:: Ulcers on right foot and over left fifth toe are unchanged, little to no drainage, no malodor, no obvious sign of infection. Consult PN Assessment/Plan Procedures: Procedures AGENT NOS ASSAY W/OPTIC (11/07/15) ASSAY OF AMMONIA (08/04/17) ASSAY OF AMYLASE (08/04/17) ASSAY OF FERRITIN (09/25/17) ASSAY OF FREE THYROXINE (09/30/17) ASSAY OF IRON (04/08/16) ASSAY OF LACTIC ACID (08/04/17) ASSAY OF LIPASE (08/04/17) ASSAY OF MAGNESIUM (08/19/16) ASSAY OF NATRIURETIC PEPTIDE (08/04/17) ASSAY OF PHOSPHORUS (11/11/16) ASSAY OF PROTEIN URINE (04/10/16) ASSAY OF TROPONIN QUANT (08/04/17) ASSAY THYROID STIM HORMONE (09/30/17) BLOOD CULTURE FOR BACTERIA (07/22/17) BLOOD GASES ANY COMBINATION (08/04/17) C-REACTIVE PROTEIN (11/07/15) CHEST X-RAY 1 VIEW FRONTAL (08/04/17) CHEST X-RAY 2VW FRONTAL&LATL (08/04/17) COMPLETE CBC AUTOMATED (05/06/14) COMPLETE CBC W/AUTO DIFF WBC (09/30/17) COMPREHEN METABOLIC PANEL (09/30/17) CREATININE CLEARANCE TEST (04/10/16) CT ABD & PELVIS W/O CONTRAST (11/07/15) DRUG TEST PRSMV DIR OPT OBS (08/04/17) EGD BIOPSY SINGLE/MULTIPLE (01/29/17) ELECTROCARDIOGRAM TRACING (08/04/17) EMERGENCY DEPT VISIT (09/25/17) EMERGENCY DEPT VISIT (08/04/17) EMERGENCY DEPT VISIT (07/20/17) EMERGENCY DEPT VISIT (07/15/17) EMERGENCY DEPT VISIT (04/17/17) EMERGENCY DEPT VISIT (12/14/16) EMERGENCY DEPT VISIT (11/07/15) EMERGENCY DEPT VISIT (11/07/15) EMERGENCY DEPT VISIT (03/28/15) EMERGENCY DEPT VISIT (03/12/15) EMERGENCY DEPT VISIT (09/28/14) EMERGENCY DEPT VISIT (06/19/14) EMERGENCY DEPT VISIT (04/03/14) EXTREMITY STUDY (07/20/17) FIBRIN DEGRADATION QUANT (07/22/17) GASTRIC EMPTYING IMAG STUDY (02/03/17) GLUCOSE BLOOD TEST (09/25/17) GLYCOSYLATED HEMOGLOBIN TEST (09/30/17) HYDRATE IV INFUSION ADD-ON (08/04/17) IMMUNIZATION ADMIN (07/20/17) INFLUENZA ASSAY W/OPTIC (08/04/17) IRON BINDING TEST (09/25/17) LIPID PANEL (09/30/17) LUNG VENTILAT&PERFUS IMAGING (07/22/17) METABOLIC PANEL TOTAL CA (09/25/17) OCCULT BLD FECES 1-3 TESTS (11/07/15) PROTHROMBIN TIME (07/22/17) RENAL FUNCTION PANEL (09/02/17) ROUTINE VENIPUNCTURE (09/30/17) SPECIAL STAINS GROUP 1 (10/17/14) STOOL CULTR AEROBIC BACT EA (11/07/15) TDAP VACCINE 7 YRS/> IM (07/20/17) TEST FOR ACETONE/KETONES (07/20/17) THER/PROPH/DIAG INJ IV PUSH (08/04/17) THER/PROPH/DIAG INJ SC/IM (08/04/17) THER/PROPH/DIAG IV INF ADDON (07/22/17) THER/PROPH/DIAG IV INF INIT (08/04/17) TISSUE EXAM BY PATHOLOGIST (10/17/14) TTE W/DOPPLER COMPLETE (07/22/17) TX GASTRO INTUB W/ASP (08/04/17) TX/PRO/DX INJ NEW DRUG ADDON (08/04/17) TX/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 (08/04/17) UR ALBUMIN SEMIQUANTITATIVE (04/08/16) URINALYSIS AUTO W/O SCOPE (12/14/16) URINALYSIS AUTO W/SCOPE (08/04/17) US EXAM ABDO BACK WALL DIALLO (04/17/16) WITHDRAWAL OF ARTERIAL BLOOD (08/04/17) X-RAY EXAM OF FOOT (07/20/17) (1) Diabetic foot ulcers SNOMED Code(s): 870358040 Code(s): E11.621 - TYPE 2 DIABETES MELLITUS WITH FOOT ULCER; L97.509 - NON- PRESSURE CHRONIC ULCER OTH PRT UNSP FOOT W UNSP SEVERITY Priority: Medium Qualifiers: Diabetic foot ulcer location: heel Diabetes mellitus type: type 1 Laterality: right Non-pressure ulcer stage: with fat layer exposed Qualified Code(s): E10.621 - Type 1 diabetes mellitus with foot ulcer; L97.412 - Non-pressure chronic ulcer of right heel and midfoot with fat layer exposed; L97.412 - Non-pressure chronic ulcer of right heel and midfoot with fat layer exposed; L97.412 - Non-pressure chronic ulcer of right heel and midfoot with fat layer exposed; L97.412 - Non-pressure chronic ulcer of right heel and midfoot with fat layer exposed Assessment:: ulcers to deep dermis and subcutaneous level, stable, nearly dry (2) Diabetic foot ulcer SNOMED Code(s): 355081509 Code(s): E11.621 - TYPE 2 DIABETES MELLITUS WITH FOOT ULCER; L97.509 - NON- PRESSURE CHRONIC ULCER OTH PRT UNSP FOOT W UNSP SEVERITY Qualifiers: Diabetic foot ulcer location: toe Diabetes mellitus type: type 1 Laterality: left Problem List Initiated/Reviewed/Updated: Yes Plan: 1. dressing done by nurse about two hours ago to both feet. 2. MRI report reviewed. No evidence of osteomyelitis, septic arthritis, or deep tracking of any ulcer site. 3. C&S pending and will be reviewed when resulted. 4. I discussed the MRI and plan with the patient. I explained that he has no obvious sign of infection on inspection his ulcers to both feet. I discussed the MRI results with him and told him I find them reassuring. I advised him to keep clean dressings on his ulcers and change them daily. I asked him to followup in my office in 6 to 7 days. 5. I discussed with Robina Pastor NP that patient is OK for discharge from podiatry standpoint and recommend he be discharged with a 7 day prescription for oral antibiotic. We discussed the antibiotic by phone later and agreed on Cephalexin, which the patient indicated he has tolerated well before, and that I will change the antibiotic if necessary once the C&S has resulted. Thank you for allowing me to participate in the care of this patient.
--- NOTE | 2017-10-09 11:54 | PCM.SN ---
- Free Text/Narrative Note: MRSA returned on wound culture. Patient called notified of changed and culture result. Prescription changed to Bactrim DS BID. Dr English also notified.
== END 2017-10-08 17:11 | disposition home or self-care (01) | DRG 380 ==
LOC: EEVIPCON 15:57 → MW.MS 15:57
PROVIDERS: ADMIT Internal Medicine; ATTEND Internal Medicine
DX: E10.621 Type 1 diabetes mellitus with foot ulcer (principal); L97.412 Non-pressure chronic ulcer of right heel and midfoot with fat layer exposed; N18.9 Chronic kidney disease, unspecified; I12.9 Hypertensive chronic kidney disease with stage 1 through stage 4 chronic kidney disease, or unspecified chronic kidney disease; E10.22 Type 1 diabetes mellitus with diabetic chronic kidney disease; E10.649 Type 1 diabetes mellitus with hypoglycemia without coma; D50.9 Iron deficiency anemia, unspecified; G62.9 Polyneuropathy, unspecified; D63.1 Anemia in chronic kidney disease; F41.9 Anxiety disorder, unspecified; Z79.4 Long term (current) use of insulin; Z91.14 Patient's other noncompliance with medication regimen; Z88.0 Allergy status to penicillin; Z79.899 Other long term (current) drug therapy
CPT/HCPCS: 36415; 73718-26-RT; 73718-RT; 80048; 80053; 82962; 85025; 85652; 86140; 87070; 87077; 87186; A9270-GY; J1756; J1815-GY; J3370; J7030; J7040; J7050

== ENCOUNTER 2017-12-03 23:02 | Inpatient (IN) | payer BC, MEDICAID ==
[2017-12-03] MEDS ORDERED: Ondansetron 4 MG/2 ML SDV IVPUSH ONE (23:17)
[2017-12-03] MEDS ORDERED: Sodium Chloride 0.9% 1,000 ML IV ONE (23:17)
--- NOTE | 2017-12-03 23:20 | EDM.PDOC ---
ED HPI GENERAL MEDICAL PROBLEM - General Chief Complaint: Gastrointestinal Problem Stated Complaint: TROUBLE BREATHING/VOMITING Time Seen by Provider: 12/03/17 23:15 - History of Present Illness INITIAL COMMENTS - FREE TEXT/NARRATIVE: HISTORY AND PHYSICAL: History of present illness: Patient is a 32-year-old black male history diabetes who presents with concern of nausea vomiting and decreased oral intake over last 2 days he's also complains of abdominal pain he's had no trauma he's had a history of renal insufficiency has long-standing IV disease. Review of systems: As per history of present illness and below otherwise all systems reviewed and negative. Past medical history: As per history of present illness and as reviewed below otherwise noncontributory. Surgical history: As per history of present illness and as reviewed below otherwise noncontributory. Social history: No reported history of drug or alcohol abuse. Family history: As per history of present illness and as reviewed below otherwise noncontributory. Physical exam: HEENT: Atraumatic, normocephalic, pupils reactive, negative for conjunctival pallor or scleral icterus, mucous membranes dry, throat clear, neck supple, nontender, trachea midline. Lungs: Clear to auscultation, breath sounds equal bilaterally, chest nontender. Heart: S1S2, regular, negative for clicks, rubs, or JVD. Abdomen: Soft, nondistended, no localized tenderness. Negative for masses or hepatosplenomegaly. Negative for costovertebral tenderness. Pelvis: Stable nontender. Genitourinary: Deferred. Rectal: Deferred. Extremities: Atraumatic, negative for cords or calf pain. Neurovascular unremarkable. Neuro: Awake, alert, oriented. Cranial nerves II through XII unremarkable. Cerebellum unremarkable. Motor and sensory unremarkable throughout. Exam nonfocal. Diagnostics: CBC CMP and lipase UA ABG CT abdomen and pelvis chest x-ray Therapeutics: Saline 1 L bolus Zofran 4 mg IV Impression: #1 diabetes #2 vomiting with dehydration #3 abdominal pain Definitive disposition and diagnosis as appropriate pending reevaluation and review of above. abdominal Pain Score (Numeric/FACES): 10 - Related Data Allergies Allergy/AdvReac Type Severity Reaction Status Date / Time shrimp Allergy Severe Other Verified 12/03/17 23:23 iodine Allergy Unknown Anaphylactic Verified 12/03/17 23:23 Shock Penicillins Allergy Unknown Anaphylactic Verified 12/03/17 23:23 Shock gluten Allergy Unknown Muscle Uncoded 12/03/17 23:23 Aches Home Meds: Home Meds Omeprazole Magnesium [Prilosec Otc] 40 mg PO DAILY 07/15/17 [History] Doxazosin [Cardura] 2 mg PO DAILY 09/25/17 [History] Enalapril [Vasotec] 40 mg PO DAILY 09/25/17 [History] Insulin Glargine,Hum.Rec.Anlog [Toujeo Solostar] 38 unit SQ DAILY 09/25/17 [ History] Spironolactone [Aldactone] 25 mg PO DAILY 09/25/17 [History] Torsemide 20 mg PO DAILY 09/25/17 [History] amLODIPine Besylate [Amlodipine Besylate] 10 mg PO DAILY 09/25/17 [History] Insulin Aspart [NovoLOG] 0 unit SUBCUT ASDIRECTED 10/07/17 [History] Cephalexin [Keflex] 500 mg PO BID #14 cap 10/08/17 [Rx] Iron Polysaccharide Complex [Polysaccharide Iron 150] 150 mg PO DAILY #30 capsule 10/08/17 [Rx] Sulfamethoxazole/Trimethoprim [Bactrim Ds Tablet] 1 each PO BID #14 tablet 10/09 [Rx] Past Medical History - Past Health History Medical/Surgical History: Denies Medical/Surgical History HEENT History: Reports: Impaired Vision Cardiovascular History: Reports: Hypertension Respiratory History: Reports: None Gastrointestinal History: Reports: Gastritis, GERD, Hiatal Hernia, Other (See Below) Other Gastrointestinal History: h/o gastric ulcers, h/o hiatal hernia Genitourinary History: Reports: Chronic Renal Insuffiency, Diabetic Nephropathy Musculoskeletal History: Reports: None Neurological History: Reports: Neuropathy, Peripheral Psychiatric History: Reports: Anxiety Endocrine/Metabolic History: Reports: Diabetes, Type I, Other (See Below) Hematologic History: Reports: Anemia Immunologic History: Reports: None Oncologic (Cancer) History: Reports: None Dermatologic History: Reports: Other (See Below) Other Dermatologic History: diabetic foot ulcers - Infectious Disease History Infectious Disease History: Reports: Chicken Pox Other Infectious Disease History: 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 - Past Surgical History Head Surgeries/Procedures: Reports: None HEENT Surgical History: Reports: None Cardiovascular Surgical History: Reports: None Respiratory Surgical History: Reports: None GI Surgical History: Reports: EGD Male Surgical History: Reports: None Endocrine Surgical History: Reports: None Dermatological Surgical History: Reports: None Social & Family History - Family History Family Medical History: Noncontributory Cardiac: Reports: High Cholesterol, Hypertension OBGYN: Reports: Neurological: Reports: None - Tobacco Use Smoking Status *Q: Never Smoker Years of Tobacco use: 10 Packs/Tins Daily: 0.5 Used Tobacco, but Quit: Yes Month/Year Tobacco Last Used: 06/30 Second Hand Smoke Exposure: Yes - Caffeine Use Caffeine Use: Reports: Coffee - Alcohol Use Days Per Week of Alcohol Use: 0 Number of Drinks Per Day: 0 Total Drinks Per Week: 0 - Recreational Drug Use Recreational Drug Use: No Drug Use in Last 12 Months: No Recreational Drug Type: Reports: Marijuana/Hashish Recreational Drug Use Frequency: Socially - Living Situation & Occupation Living situation: Reports: Single Occupation: Employed (Works overnights at [employer] in [facility] ED ROS GENERAL - Review of Systems Review Of Systems: ROS reveals no pertinent complaints other than HPI. ED EXAM, GENERAL - Physical Exam Exam: See Below (dictating) Course - Vital Signs Last Recorded V/S: Last Vital Signs Temp 36.6 C 12/03/17 23:08 Pulse 108 H 12/04/17 00:17 Resp 20 12/04/17 00:17 BP 192/115 H 12/04/17 00:17 Pulse Ox 100 12/04/17 00:17 - Orders/Labs/Meds Orders: Active Orders 24 hr Category Date Time Status Cardiac Monitoring [RC] . DIRECTED Care 12/03/17 23:17 Active EKG Documentation Completion [RC] STAT Care 12/03/17 23:17 Active Pulse Oximetry [RC] ASDIRECTED Care 12/03/17 23:17 Active Abdomen Pelvis wo Cont [CT] Stat Exams 12/03/17 23:17 Taken Chest 1V Frontal [CR] Stat Exams 12/03/17 23:17 Taken UA W/MICROSCOPIC [URIN] Stat Lab 12/03/17 23:17 Ordered Labs: Laboratory Tests 12/03/17 12/03/17 12/03/17 Range/Units 23:16 23:16 23:45 WBC 7.73 (4.0-11.0) K/uL RBC 5.50 (4.50-5.90) M/uL Hgb 11.5 L (13.0-17.0) g/dL Hct 35.5 L (38.0-50.0) % MCV 64.5 L (80.0-98.0) fL MCH 20.9 L (27.0-32.0) pg MCHC 32.4 (31.0-37.0) g/dL RDW Std Deviation 40.7 (28.0-62.0) fl RDW Coeff of Dania 18 H (11.0-15.0) % Plt Count 342 (150-400) K/uL Neut % (Auto) 61.5 (48.0-80.0) % Lymph % (Auto) 29.8 (16.0-40.0) % Sanborn % (Auto) 7.8 (0.0-15.0) % Eos % (Auto) 0.6 (0.0-7.0) % Baso % (Auto) 0.3 (0.0-1.5) % Neut # (Auto) 4.8 (1.4-5.7) K/uL Lymph # (Auto) 2.3 (0.6-2.4) K/uL Sanborn # (Auto) 0.6 (0.0-0.8) K/uL Eos # (Auto) 0.1 (0.0-0.7) K/uL Baso # (Auto) 0.0 (0.0-0.1) K/uL Nucleated RBC % 0.0 /100WBC Nucleated RBCs # 0 K/uL ABG pH 7.649 H (7.35-7.45) ABG pCO2 25 L (35-45) mmHG ABG pO2 87 (75-100) mmHG ABG HCO3 27 H (22-26) mEq/L ABG Total CO2 24.1 ABG Base Excess 6.7 H (-2.0-2.0) Sodium 133 L (136-148) mmol/L Potassium 3.9 (3.5-5.1) mmol/L Chloride 97 L (98-107) mmol/L Carbon Dioxide 28.0 (21.0-32.0) mmol/L BUN 22 H (7.0-18.0) mg/dL Creatinine 1.7 H (0.8-1.3) mg/dL Est Cr Clr Drug Dosing TNP Estimated GFR (MDRD) 57.3 ml/min Glucose 414 H (74-106) mg/dL Calcium 9.0 (8.5-10.1) mg/dL Total Bilirubin 0.2 (0.2-1.0) mg/dL AST 21 (15-37) IU/L ALT 23 (14-63) IU/L Alkaline Phosphatase 129 H (46-116) U/L Total Protein 7.0 (6.4-8.2) g/dL Albumin 2.7 L (3.4-5.0) g/dL Globulin 4.3 H (2.0-3.5) g/dL Albumin/Globulin Ratio 0.6 L (1.3-2.8) Lipase 39 L (73-393) U/L Meds: Medications Discontinued Medications Generic Name Dose Route Start Last Admin Trade Name Freq PRN Reason Stop Dose Admin Sodium Chloride 1,000 mls @ 999 mls/hr 12/03/17 23:17 12/03/17 23:22 Normal Saline IV 12/04/17 00:17 999 mls/hr STAT ONE Administration Ondansetron HCl 4 mg 12/03/17 23:17 12/03/17 23:27 Zofran IVPUSH 12/03/17 23:18 4 mg ONETIME ONE Administration Pantoprazole Sodium 80 mg 12/03/17 23:49 12/03/17 23:58 Protonix Iv IVPUSH 12/03/17 23:50 80 mg NOW ONE Administration Departure - Departure Time of Disposition: 00:42 Disposition: Home, Self-Care 01 Condition: Good Clinical Impression: Hypertension, Diabetes, Upper GI bleed Vomiting Qualifiers: Vomiting type: unspecified Vomiting Intractability: non-intractable Nausea presence: with nausea Qualified Code(s): R11.2 - Nausea with vomiting, unspecified - Discharge Information Referrals: PCP,None [Primary Care Provider] - Forms: ED Department Discharge - My Orders Last 24 Hours: My Active Orders 12/03/17 23:17 Cardiac Monitoring [RC] . DIRECTED EKG Documentation Completion [RC] STAT Pulse Oximetry [RC] ASDIRECTED Abdomen Pelvis wo Cont [CT] Stat Chest 1V Frontal [CR] Stat UA W/MICROSCOPIC [URIN] Stat - Assessment/Plan Last 24 Hours: My Active Orders 12/03/17 23:17 Cardiac Monitoring [RC] . DIRECTED EKG Documentation Completion [RC] STAT Pulse Oximetry [RC] ASDIRECTED Abdomen Pelvis wo Cont [CT] Stat Chest 1V Frontal [CR] Stat UA W/MICROSCOPIC [URIN] Stat
[2017-12-03] MEDS ORDERED: Pantoprazole 40 MG Vial IVPUSH ONE (23:49)
[2017-12-03 23:50] LABS: CHLORIDE,CL 97 mmol/L (98-107); SODIUM,NA 133 mmol/L (136-148)
[2017-12-04] MEDS ORDERED: hydrALAZINE 20 MG/ML SDV IVPUSH ONE (00:49)
[2017-12-04] MEDS: Pantoprazole 80 MG in Sodium Chloride 0.9% 100 ML IV SCH ×3 (01:04→23:36)
[2017-12-04] MEDS ORDERED: Morphine 10 MG/ML Syringe IVPUSH PRN (03:14)
[2017-12-04] MEDS ORDERED: Ondansetron 4 MG/2 ML SDV IVPUSH SCH (03:15)
[2017-12-04] MEDS ORDERED: Insulin Aspart 100 Units/ML 3 ML Pen ONE (03:32)
[2017-12-04] MEDS: Ondansetron 4 MG/2 ML SDV IVPUSH PRN ×2 (03:39→08:58)
[2017-12-04] MEDS: Morphine 4 MG/ML Syringe IVPUSH PRN ×2 (03:42→09:52)
[2017-12-04] MEDS: Insulin Aspart 100 Units/ML 3 ML Pen SUBCUT SCH ×4 (03:45→21:30)
[2017-12-04] MEDS ORDERED: Sodium Chloride 0.9% 1,000 ML IV ONE (04:31)
--- NOTE | 2017-12-04 04:38 | PCM.HP ---
H&P History of Present Illness - General Admit Problem/Dx: Admission Diagnosis/Problem Admission Diagnosis/Problem GI bleed not requiring more than 4 units of blood in 24 hours, ICU, or surgery - History of Present Illness Initial Comments - Free Text/Narative: 32 yo male with pmh of DM, CKD, and iron deficiency anemia who presents with three day history of nausea and vomiting. Patient reports multiple colors of emesis green to dark red with some blood in he vomit. he reports he has not been taking his insulin regularly as he has not been eating due to the nausea and vomiting. he does have some abdominal pain associated with the nausea. abdominal Pain Score (Numeric/FACES): 8 - Related Data Allergies/Adverse Reactions: Allergies Allergy/AdvReac Type Severity Reaction Status Date / Time shrimp Allergy Severe Other Verified 12/03/17 23:23 iodine Allergy Unknown Anaphylactic Verified 12/03/17 23:23 Shock Penicillins Allergy Unknown Anaphylactic Verified 12/03/17 23:23 Shock gluten Allergy Unknown Muscle Uncoded 12/03/17 23:23 Aches Home Medications: Home Meds RX: Omeprazole Magnesium [Prilosec Otc] 40 mg PO DAILY 07/15/17 [History] RX: Doxazosin [Cardura] 2 mg PO DAILY 09/25/17 [History] RX: Enalapril [Vasotec] 40 mg PO DAILY 09/25/17 [History] RX: Insulin Glargine,Hum.Rec.Anlog [Madai Solchelsea] 38 unit SQ DAILY 09/25/17 [ History] RX: Spironolactone [Aldactone] 25 mg PO DAILY 09/25/17 [History] RX: Torsemide 20 mg PO DAILY 09/25/17 [History] RX: amLODIPine Besylate [Amlodipine Besylate] 10 mg PO DAILY 09/25/17 [History] RX: Insulin Aspart [NovoLOG] 0 unit SUBCUT ASDIRECTED 10/07/17 [History] RX: Iron Polysaccharide Complex [Polysaccharide Iron 150] 150 mg PO DAILY #30 capsule 10/08/17 [Rx] RX: Sulfamethoxazole/Trimethoprim [Bactrim Ds Tablet] 1 each PO BID #14 tablet 10/09/17 [Rx] Pantoprazole Sodium [Protonix] 40 mg PO DAILY #20 tablet. 12/06/17 [Rx] Past Medical History - Past Health History Medical/Surgical History: Denies Medical/Surgical History HEENT History: Reports: Impaired Vision Cardiovascular History: Reports: Hypertension Respiratory History: Reports: None Gastrointestinal History: Reports: Gastritis, GERD, Hiatal Hernia, Other (See Below) Other Gastrointestinal History: h/o gastric ulcers, h/o hiatal hernia Genitourinary History: Reports: Chronic Renal Insuffiency, Diabetic Nephropathy Musculoskeletal History: Reports: None Neurological History: Reports: Neuropathy, Peripheral Psychiatric History: Reports: Anxiety Endocrine/Metabolic History: Reports: Diabetes, Type I, Other (See Below) Hematologic History: Reports: Anemia Immunologic History: Reports: None Oncologic (Cancer) History: Reports: None Dermatologic History: Reports: Other (See Below) Other Dermatologic History: diabetic foot ulcers - Infectious Disease History Infectious Disease History: Reports: Chicken Pox Other Infectious Disease History: 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 - Past Surgical History Head Surgeries/Procedures: Reports: None HEENT Surgical History: Reports: None Cardiovascular Surgical History: Reports: None Respiratory Surgical History: Reports: None GI Surgical History: Reports: EGD Male Surgical History: Reports: None Endocrine Surgical History: Reports: None Dermatological Surgical History: Reports: None Social & Family History - Family History Family Medical History: Noncontributory Cardiac: Reports: High Cholesterol, Hypertension OBGYN: Reports: Neurological: Reports: None - Tobacco Use Smoking Status *Q: Never Smoker Years of Tobacco use: 10 Packs/Tins Daily: 0.5 Used Tobacco, but Quit: Yes Month/Year Tobacco Last Used: 06/30 Second Hand Smoke Exposure: No - Caffeine Use Caffeine Use: Reports: Coffee - Alcohol Use Days Per Week of Alcohol Use: 0 Number of Drinks Per Day: 0 Total Drinks Per Week: 0 - Recreational Drug Use Recreational Drug Use: No Drug Use in Last 12 Months: No Recreational Drug Type: Reports: Marijuana/Hashish Recreational Drug Use Frequency: Socially - Living Situation & Occupation Living situation: Reports: Single Occupation: Employed (Works overnights at [employer] in [facility] H&P Review of Systems - Review of Systems: Review Of Systems: ROS reveals no pertinent complaints other than HPI. Exam - Exam Exam: See Below - Vital Signs Vital Signs: Last Vital Signs Temp 36.6 C 12/04/17 02:00 Pulse 123 H 12/04/17 01:09 Resp 20 12/04/17 03:00 BP 182/100 H 12/04/17 03:00 Pulse Ox 93 L 12/04/17 03:00 Weight: 77.1 kg - Exam General: Alert, Oriented Neck: Supple, Trachea Midline Lungs: Clear to Auscultation, Normal Respiratory Effort Cardiovascular: Regular Rate, Regular Rhythm GI/Abdominal Exam: Normal Bowel Sounds, Soft, Non-Tender, No Distention. No: Rigid, Rebound Extremities: Non-Tender, No Pedal Edema, Other (left little toe ulcer, no drainage or erythema noted) - Patient Data Lab Results Last 24 hrs: Laboratory Results - last 24 hr 12/04/17 Range/Units 03:23 POC Glucose 449 H (60-110) mg/dL Result Diagrams: 12/06/17 06:12 12/06/17 06:12 *Q Meaningful Use (ADM) - VTE *Q VTE Criteria *Q: - Stroke *Q Stroke Criteria *Q: - AMI *Q AMI Criteria *Q: Problem List Initiated/Reviewed/Updated: Yes Orders Last 24hrs: Active Orders 24 hr Category Date Time Status Nothing per Oral Now Diet [DIET] Diet 12/04/17 Breakfast Active BASIC METABOLIC PANEL,BMP [CHEM] Routine Lab 12/04/17 06:00 Ordered CBC WITH AUTO DIFF [HEME] Routine Lab 12/04/17 06:00 Ordered Insulin Aspart [NovoLOG] Med 12/04/17 03:30 Active See Protocol SUBCUT Q6H Morphine Med 12/04/17 03:27 Active 2 mg IVPUSH Q3H PRN Ondansetron [Zofran] Med 12/04/17 03:16 Active 8 mg IVPUSH Q6H PRN Sodium Chloride 0.9% [Normal Saline] 1,000 ml Med 12/04/17 04:31 Ordered IV .Bolus Medication Orders Pantoprazole Sodium 80 mg/ (Sodium Chloride) 100 mls @ 10 mls/hr IV Q10H [facility] Last Admin: 12/04/17 01:04 Dose: 10 mls/hr Sodium Chloride (Normal Saline) 1,000 mls @ 1,000 mls/hr IV .Bolus ONE Stop: 12/04/17 05:30 Insulin Aspart (Novolog) 0 unit SUBCUT Q6H [facility] PRN Reason: Protocol Last Admin: 12/04/17 03:45 Dose: 10 units Morphine Sulfate (Morphine) 2 mg IVPUSH Q3H PRN PRN Reason: Pain Last Admin: 12/04/17 03:42 Dose: 2 mg Ondansetron HCl (Zofran) 8 mg IVPUSH Q6H PRN PRN Reason: Nausea/Vomiting Last Admin: 12/04/17 03:39 Dose: 8 mg Assessment/Plan Comment:: 32 yo male admitted for intractable nausea and vomiting and suspected upper GI bleed. We will treat with antiemetics, protonix drip and keep NPO. Will continue IV fluids and sliding scale insulin for management of elevated blood glucose levels.
[2017-12-04] MEDS: Promethazine 25 MG/ML SDV IM PRN (05:31)
[2017-12-04] MEDS ORDERED: Labetalol 100 MG/20 ML MDV IVPUSH ONE (05:40)
[2017-12-04] MEDS: Sodium Chloride 0.9% 1,000 ML IV SCH ×3 (06:39→22:23)
--- NOTE | 2017-12-04 08:16 | PCM.PN ---
- General Info Date of Service: 12/04/17 Admission Dx/Problem (Free Text): Admission Diagnosis/Problem Admission Diagnosis/Problem GI bleed, intractable nausea and vomiting. Subjective Update: Not feeling well this morning still nauseated and vomiting. No chest pain or SOB. Over all just feels unwell. Functional Status: Reports: Ambulating, Urinating. Denies: Tolerating Diet - Review of Systems General: Reports: Fatigue, Malaise HEENT: Reports: No Symptoms. Denies: Headaches, Sore Throat, Visual Changes Pulmonary: Reports: No Symptoms. Denies: Shortness of Breath Cardiovascular: Reports: No Symptoms. Denies: Chest Pain Gastrointestinal: Reports: Abdominal Pain (epigastric), Decreased Appetite, Hematochezia, Nausea, Vomiting. Denies: Constipation, Diarrhea Genitourinary: Reports: No Symptoms. Denies: Dysuria, Frequency, Burning Skin: Reports: No Symptoms Neurological: Reports: No Symptoms Psychiatric: Reports: No Symptoms - Patient Data Vitals - Most Recent: Last Vital Signs Temp 97.8 F 12/04/17 02:00 Pulse 108 H 12/04/17 06:23 Resp 15 12/04/17 06:00 BP 125/69 12/04/17 06:23 Pulse Ox 100 12/04/17 06:00 Weight - Most Recent: 77.1 kg I&O - Last 24 Hours: Intake & Output 12/03/17 12/04/17 12/04/17 22:59 06:59 14:59 Output Total 250 Balance -250 Lab Results Last 24 Hours: Laboratory Results - last 24 hr 12/04/17 12/04/17 12/04/17 Range/Units 03:23 05:57 05:57 WBC 10.67 (4.0-11.0) K/uL RBC 4.84 (4.50-5.90) M/uL Hgb 10.1 L (13.0-17.0) g/dL Hct 31.2 L (38.0-50.0) % MCV 64.5 L (80.0-98.0) fL MCH 20.9 L (27.0-32.0) pg MCHC 32.4 (31.0-37.0) g/dL RDW Std Deviation 41.6 (28.0-62.0) fl RDW Coeff of Dania 18 H (11.0-15.0) % Plt Count 280 (150-400) K/uL Neut % (Auto) 83.7 H (48.0-80.0) % Lymph % (Auto) 12.2 L (16.0-40.0) % Mobile % (Auto) 3.9 (0.0-15.0) % Eos % (Auto) 0.0 (0.0-7.0) % Baso % (Auto) 0.2 (0.0-1.5) % Neut # (Auto) 8.9 H (1.4-5.7) K/uL Lymph # (Auto) 1.3 (0.6-2.4) K/uL Mobile # (Auto) 0.4 (0.0-0.8) K/uL Eos # (Auto) 0.0 (0.0-0.7) K/uL Baso # (Auto) 0.0 (0.0-0.1) K/uL Nucleated RBC % 0.0 /100WBC Nucleated RBCs # 0 K/uL Sodium 140 (136-148) mmol/L Potassium 3.6 (3.5-5.1) mmol/L Chloride 105 (98-107) mmol/L Carbon Dioxide 25.9 (21.0-32.0) mmol/L BUN 22 H (7.0-18.0) mg/dL Creatinine 1.7 H (0.8-1.3) mg/dL Est Cr Clr Drug Dosing 62.96 mL/min Estimated GFR (MDRD) 57.3 ml/min Glucose 267 H (74-106) mg/dL POC Glucose 449 H (60-110) mg/dL Calcium 8.3 L (8.5-10.1) mg/dL Med Orders - Current: Current Medications Pantoprazole Sodium 80 mg/ (Sodium Chloride) 100 mls @ 10 mls/hr IV Q10H [facility] Last Admin: 12/04/17 01:04 Dose: 10 mls/hr Sodium Chloride (Normal Saline) 1,000 mls @ 125 mls/hr IV ASDIRECTED [facility] Last Admin: 12/04/17 06:39 Dose: 125 mls/hr Insulin Aspart (Novolog) 0 unit SUBCUT Q6H [facility] PRN Reason: Protocol Last Admin: 12/04/17 03:45 Dose: 10 units Morphine Sulfate (Morphine) 2 mg IVPUSH Q3H PRN PRN Reason: Pain Last Admin: 12/04/17 03:42 Dose: 2 mg Ondansetron HCl (Zofran) 8 mg IVPUSH Q6H PRN PRN Reason: Nausea/Vomiting Last Admin: 12/04/17 03:39 Dose: 8 mg Promethazine HCl (Phenergan) 25 mg IM Q6H PRN PRN Reason: Nausea/Vomiting Last Admin: 12/04/17 05:31 Dose: 25 mg Discontinued Medications Hydralazine HCl (Apresoline) 10 mg IVPUSH ONETIME ONE Stop: 12/04/17 00:50 Last Admin: 12/04/17 00:58 Dose: 10 mg Sodium Chloride (Normal Saline) 1,000 mls @ 999 mls/hr IV STAT ONE Stop: 12/04/17 00:17 Last Admin: 12/03/17 23:22 Dose: 999 mls/hr Sodium Chloride (Normal Saline) 1,000 mls @ 1,000 mls/hr IV .Bolus ONE Stop: 12/04/17 05:30 Last Admin: 12/04/17 04:50 Dose: 1,000 mls/hr Insulin Aspart (Novolog) Confirm Administered Dose 300 unit .ROUTE .STK-MED ONE Stop: 12/04/17 03:33 Last Admin: 12/04/17 03:48 Dose: Not Given Labetalol HCl (Normodyne) 20 mg IVPUSH ONETIME ONE PRN Reason: Protocol Stop: 12/04/17 05:41 Last Admin: 12/04/17 06:23 Dose: Not Given Morphine Sulfate (Morphine) 2 mg IVPUSH Q3H PRN PRN Reason: Pain Ondansetron HCl (Zofran) 4 mg IVPUSH ONETIME ONE Stop: 12/03/17 23:18 Last Admin: 12/03/17 23:27 Dose: 4 mg Ondansetron HCl (Zofran) 8 mg IVPUSH Q6H [facility] Last Admin: 12/04/17 03:21 Dose: Not Given Pantoprazole Sodium (Protonix Iv) 80 mg IVPUSH NOW ONE Stop: 12/03/17 23:50 Last Admin: 12/03/17 23:58 Dose: 80 mg - Exam General: Alert, Oriented, Cooperative, No Acute Distress Neck: Supple Lungs: Clear to Auscultation, Normal Respiratory Effort Cardiovascular: Regular Rate, Regular Rhythm GI/Abdominal Exam: Normal Bowel Sounds, Soft, No Organomegaly, No Distention, No Abnormal Bruit, No Mass, Pelvis Stable, Tender (to epigastric and LUQ) Extremities: Normal Inspection, Normal Range of Motion, Non-Tender, No Pedal Edema, Normal Capillary Refill Neurological: No New Focal Deficit Psy/Mental Status: Alert, Normal Affect, Normal Mood - Problem List & Annotations (1) Upper GI bleed SNOMED Code(s): 96129652 Code(s): K92.2 - GASTROINTESTINAL HEMORRHAGE, UNSPECIFIED Status: Acute Current Visit: Yes (2) Intractable nausea and vomiting SNOMED Code(s): 911196979 Code(s): R11.2 - NAUSEA WITH VOMITING, UNSPECIFIED Status: Acute Current Visit: Yes (3) Diabetes SNOMED Code(s): 46156890 Code(s): E11.9 - TYPE 2 DIABETES MELLITUS WITHOUT COMPLICATIONS Status: Chronic Current Visit: Yes Qualifiers: Diabetes mellitus type: type 1 Diabetes mellitus complication status: with kidney complications Diabetes mellitus complication detail: with chronic kidney disease (4) Hypertension SNOMED Code(s): 96156749 Code(s): I10 - ESSENTIAL (PRIMARY) HYPERTENSION Status: Chronic Current Visit: Yes Qualifiers: Hypertension type: essential hypertension Qualified Code(s): I10 - Essential (primary) hypertension (5) Chronic renal insufficiency SNOMED Code(s): 467888887 Code(s): N18.9 - CHRONIC KIDNEY DISEASE, UNSPECIFIED Status: Chronic Current Visit: No - Problem List Review Problem List Initiated/Reviewed/Updated: Yes - Plan Plan:: 32 yo male admitted for intractable nausea and vomiting and suspected upper GI bleed. 1 intractable N/V and GI bleed: Little improvement. Hgb 10.1 today, down but likely due to diluation. Will monitor. Will add Reglan scheduled due to possible gastroparesis. Continue antiemetics, protonix drip and keep NPO. Dr West, general surgery consulted. Continue IV fluids. 2. DM Type 1: Uncontrolled. Continue sliding scale insulin for management of elevated blood glucose levels Q6 hrs while NPO. 3. CKD: Stable and at baseline. Monitor. 4. HTN: Elevated at times. Will add Labetolol q4 hrs PRN IV while unable to tolerate PO. Add home regimen back when tolerating PO better. 5. Hx DM foot ulcers, bilaterally: Much improved. No s/s infection. Monitor closely VTE prophylaxis: SCDs only, no pharmacologic treatment due to possible GI bleeding.
[2017-12-04] MEDS: Labetalol 100 MG/20 ML MDV IVPUSH PRN (10:41)
[2017-12-04] MEDS: Metoclopramide 10 MG/2 ML SDV IVPUSH SCH ×3 (10:41→21:29)
--- NOTE | 2017-12-04 14:09 | CT ---
EXAM DATE: 12/04/17 PATIENT'S AGE: 32 Patient: DAWOOD DUCKWORTH Facility: [place], [place] Site . Site : 1985 Study: CT Abdomen/Pelvis WO CONT [id number]/22/2018 11:50:15 PM Ordering Physician: Dena Rodriguez Final Report: INDICATION: Abdominal pain. Vomiting blood for 3 days. TECHNIQUE: CT abdomen and pelvis without contrast. COMPARISON: CT study dated 04/01/2017. FINDINGS: Design Inserter CT images: Nonobstructive bowel gas pattern. Lower chest: Unremarkable. Liver: Unremarkable. Spleen: Unremarkable. Pancreas: Unremarkable. Gallbladder and bile ducts: Unremarkable. Adrenal glands: Unremarkable. Kidneys: Unremarkable. No kidney or ureteral stones and no hydronephrosis. GI tract: Unremarkable. Appendix is normal. Vascular structures: Unremarkable. Lymph nodes: Unremarkable. Miscellaneous: Unremarkable. No free air or significant free fluid. Pelvic Organs: Mild diffuse bladder wall thickening, which may represent underlying cystitis. No abnormal mass or calcifications. No free pelvic fluid. Bones: Unremarkable for age. IMPRESSION: 1. No acute abnormality involving bowel loops. No obstruction, free air, or interloop ascites. Normal appendix well visualized in the right lower abdominal quadrant on series 201, image 86. 2. Diffuse bladder wall thickening, possibly due to cystitis. This finding was noted on prior CT from March 2017. 3. No renal or ureteral calculi. No hydronephrosis. Dictated by Dean Patel MD @ 12/04/2017 12:00:58 AM Dictated by: Dean Patel MD @ 12/04/2017 00:01:06 (Electronic Signature) Report Signed by Proxy. ST[facility] CENTERLedy
--- NOTE | 2017-12-04 14:10 | CR ---
EXAM DATE: 12/04/17 PATIENT'S AGE: 32 Patient: DAWOOD DUCKWORTH Facility: [place], [place] Site . Site : 1985 Study: XRay Chest [id number]/22/2018 11:52:11 PM Ordering Physician: Dena Rodriguez Final Report: INDICATION: Chest Pain, shortness of breath TECHNIQUE: Chest radiograph 1 view COMPARISON: 08/05/2017 FINDINGS: Mediastinum: The heart silhouette is normal in size and morphology. The mediastinum is normal in appearance. Lungs: Both lungs are unremarkable in appearance. No sign of pleural effusion seen. No pneumothorax is identified. Bones and soft tissue: Unremarkable for age. IMPRESSION: 1. No acute cardiopulmonary disease is seen. Dictated by: Josh Vick MD @ 12/03/2017 23:59:58 (Electronic Signature) Report Signed by Proxy. [facility]ITALLedy
--- NOTE | 2017-12-04 14:29 | PCM.CONS ---
H&P History of Present Illness - General Date of Service: 11/27/17 Admit Problem/Dx: Admission Diagnosis/Problem Admission Diagnosis/Problem GI bleed, intractable nausea and vomiting. Source of Information: Patient History Limitations: Reports: No Limitations - History of Present Illness Initial Comments - Free Text/Narative: Patient is a 32 yo male with type I DM CKD who is non-compliant with therapy. He presents with 3 days of nausea and vomiting. While vomiting he noticed blood. He was seen in the ER and admitted to the ICU this morning. His hgb was slightly decreased and his blood sugars were uncontrolled. He was admitted to the ICU. He has some epigastric pain. He vomited twice since admission and it appears dark brown. I performed an EGD on him 10 months ago due to the same issue. It was limited due to his stomach being full of food. Given his poorly controled diabetes there was a question of diabetic gastroparesis. He had a gastric emptying study performed which was normal. He has been on protonix and reglan since admission. He denies abdominal pain now and was resting comfortably. abdominal Pain Score (Numeric/FACES): 8 - Related Data Allergies/Adverse Reactions: Allergies Allergy/AdvReac Type Severity Reaction Status Date / Time shrimp Allergy Severe Other Verified 12/03/17 23:23 iodine Allergy Unknown Anaphylactic Verified 12/03/17 23:23 Shock Penicillins Allergy Unknown Anaphylactic Verified 12/03/17 23:23 Shock gluten Allergy Unknown Muscle Uncoded 12/03/17 23:23 Aches Home Medications: Home Meds Omeprazole Magnesium [Prilosec Otc] 40 mg PO DAILY 07/15/17 [History] Doxazosin [Cardura] 2 mg PO DAILY 09/25/17 [History] Enalapril [Vasotec] 40 mg PO DAILY 09/25/17 [History] Insulin Glargine,Hum.Rec.Anlog [Toueleuterioo Solostar] 38 unit SQ DAILY 09/25/17 [ History] Spironolactone [Aldactone] 25 mg PO DAILY 09/25/17 [History] Torsemide 20 mg PO DAILY 09/25/17 [History] amLODIPine Besylate [Amlodipine Besylate] 10 mg PO DAILY 09/25/17 [History] Insulin Aspart [NovoLOG] 0 unit SUBCUT ASDIRECTED 10/07/17 [History] Iron Polysaccharide Complex [Polysaccharide Iron 150] 150 mg PO DAILY #30 capsule 10/08/17 [Rx] Sulfamethoxazole/Trimethoprim [Bactrim Ds Tablet] 1 each PO BID #14 tablet 10/09 [Rx] Past Medical History - Past Health History Medical/Surgical History: Denies Medical/Surgical History HEENT History: Reports: Impaired Vision Cardiovascular History: Reports: Hypertension Respiratory History: Reports: None Gastrointestinal History: Reports: Gastritis, GERD, Hiatal Hernia, Other (See Below) Other Gastrointestinal History: h/o gastric ulcers, h/o hiatal hernia Genitourinary History: Reports: Chronic Renal Insuffiency, Diabetic Nephropathy Musculoskeletal History: Reports: None Neurological History: Reports: Neuropathy, Peripheral Psychiatric History: Reports: Anxiety Endocrine/Metabolic History: Reports: Diabetes, Type I, Other (See Below) Hematologic History: Reports: Anemia Immunologic History: Reports: None Oncologic (Cancer) History: Reports: None Dermatologic History: Reports: Other (See Below) Other Dermatologic History: diabetic foot ulcers - Infectious Disease History Infectious Disease History: Reports: Chicken Pox Other Infectious Disease History: 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 - Past Surgical History Head Surgeries/Procedures: Reports: None HEENT Surgical History: Reports: None Cardiovascular Surgical History: Reports: None Respiratory Surgical History: Reports: None GI Surgical History: Reports: EGD Male Surgical History: Reports: None Endocrine Surgical History: Reports: None Dermatological Surgical History: Reports: None Social & Family History - Family History Family Medical History: Noncontributory Cardiac: Reports: High Cholesterol, Hypertension OBGYN: Reports: Neurological: Reports: None - Tobacco Use Smoking Status *Q: Never Smoker Years of Tobacco use: 10 Packs/Tins Daily: 0.5 Used Tobacco, but Quit: Yes Month/Year Tobacco Last Used: 06/30 Second Hand Smoke Exposure: No - Caffeine Use Caffeine Use: Reports: Coffee - Alcohol Use Days Per Week of Alcohol Use: 0 Number of Drinks Per Day: 0 Total Drinks Per Week: 0 - Recreational Drug Use Recreational Drug Use: No Drug Use in Last 12 Months: No Recreational Drug Type: Reports: Marijuana/Hashish Recreational Drug Use Frequency: Socially - Living Situation & Occupation Living situation: Reports: Single Occupation: Employed (Works overnights at [employer] H&P Review of Systems - Review of Systems: Review Of Systems: ROS reveals no pertinent complaints other than HPI. Exam - Exam Exam: See Below - Vital Signs Vital Signs: Last Vital Signs Temp 37.0 C 12/04/17 11:00 Pulse 119 H 12/04/17 10:41 Resp 14 12/04/17 11:00 BP 117/71 12/04/17 11:00 Pulse Ox 94 L 12/04/17 11:00 Weight: 77.1 kg - Exam General: Alert, Oriented HEENT: Conjunctiva Clear, Pupils Equal, Pupils Reactive Lungs: Normal Respiratory Effort Cardiovascular: Regular Rate GI/Abdominal Exam: Soft, Non-Tender, No Distention, No Mass - Patient Data Lab Results Last 24 hrs: Laboratory Results - last 24 hr 12/04/17 12/04/17 12/04/17 Range/Units 03:23 05:57 05:57 WBC 10.67 (4.0-11.0) K/uL RBC 4.84 (4.50-5.90) M/uL Hgb 10.1 L (13.0-17.0) g/dL Hct 31.2 L (38.0-50.0) % MCV 64.5 L (80.0-98.0) fL MCH 20.9 L (27.0-32.0) pg MCHC 32.4 (31.0-37.0) g/dL RDW Std Deviation 41.6 (28.0-62.0) fl RDW Coeff of Dania 18 H (11.0-15.0) % Plt Count 280 (150-400) K/uL Neut % (Auto) 83.7 H (48.0-80.0) % Lymph % (Auto) 12.2 L (16.0-40.0) % Kings % (Auto) 3.9 (0.0-15.0) % Eos % (Auto) 0.0 (0.0-7.0) % Baso % (Auto) 0.2 (0.0-1.5) % Neut # (Auto) 8.9 H (1.4-5.7) K/uL Lymph # (Auto) 1.3 (0.6-2.4) K/uL Kings # (Auto) 0.4 (0.0-0.8) K/uL Eos # (Auto) 0.0 (0.0-0.7) K/uL Baso # (Auto) 0.0 (0.0-0.1) K/uL Nucleated RBC % 0.0 /100WBC Nucleated RBCs # 0 K/uL Sodium 140 (136-148) mmol/L Potassium 3.6 (3.5-5.1) mmol/L Chloride 105 (98-107) mmol/L Carbon Dioxide 25.9 (21.0-32.0) mmol/L BUN 22 H (7.0-18.0) mg/dL Creatinine 1.7 H (0.8-1.3) mg/dL Est Cr Clr Drug Dosing 62.96 mL/min Estimated GFR (MDRD) 57.3 ml/min Glucose 267 H (74-106) mg/dL POC Glucose 449 H (60-110) mg/dL Calcium 8.3 L (8.5-10.1) mg/dL 12/04/17 Range/Units 09:03 WBC (4.0-11.0) K/uL RBC (4.50-5.90) M/uL Hgb (13.0-17.0) g/dL Hct (38.0-50.0) % MCV (80.0-98.0) fL MCH (27.0-32.0) pg MCHC (31.0-37.0) g/dL RDW Std Deviation (28.0-62.0) fl RDW Coeff of Dania (11.0-15.0) % Plt Count (150-400) K/uL Neut % (Auto) (48.0-80.0) % Lymph % (Auto) (16.0-40.0) % Kings % (Auto) (0.0-15.0) % Eos % (Auto) (0.0-7.0) % Baso % (Auto) (0.0-1.5) % Neut # (Auto) (1.4-5.7) K/uL Lymph # (Auto) (0.6-2.4) K/uL Kings # (Auto) (0.0-0.8) K/uL Eos # (Auto) (0.0-0.7) K/uL Baso # (Auto) (0.0-0.1) K/uL Nucleated RBC % /100WBC Nucleated RBCs # K/uL Sodium (136-148) mmol/L Potassium (3.5-5.1) mmol/L Chloride (98-107) mmol/L Carbon Dioxide (21.0-32.0) mmol/L BUN (7.0-18.0) mg/dL Creatinine (0.8-1.3) mg/dL Est Cr Clr Drug Dosing mL/min Estimated GFR (MDRD) ml/min Glucose (74-106) mg/dL POC Glucose 181 H (60-110) mg/dL Calcium (8.5-10.1) mg/dL Result Diagrams: 12/04/17 05:57 12/04/17 05:57 Consult PN Assessment/Plan Procedures: Procedures AGENT NOS ASSAY W/OPTIC (11/07/15) ASSAY OF AMMONIA (08/04/17) ASSAY OF AMYLASE (08/04/17) ASSAY OF FERRITIN (09/25/17) ASSAY OF FREE THYROXINE (09/30/17) ASSAY OF IRON (04/08/16) ASSAY OF LACTIC ACID (08/04/17) ASSAY OF LIPASE (08/04/17) ASSAY OF MAGNESIUM (08/19/16) ASSAY OF NATRIURETIC PEPTIDE (08/04/17) ASSAY OF PHOSPHORUS (11/11/16) ASSAY OF PROTEIN URINE (04/10/16) ASSAY OF TROPONIN QUANT (08/04/17) ASSAY THYROID STIM HORMONE (09/30/17) BLOOD CULTURE FOR BACTERIA (07/22/17) BLOOD GASES ANY COMBINATION (08/04/17) C-REACTIVE PROTEIN (11/07/15) CHEST X-RAY 1 VIEW FRONTAL (08/04/17) CHEST X-RAY 2VW FRONTAL&LATL (08/04/17) COMPLETE CBC AUTOMATED (05/06/14) COMPLETE CBC W/AUTO DIFF WBC (09/30/17) COMPREHEN METABOLIC PANEL (09/30/17) CREATININE CLEARANCE TEST (04/10/16) CT ABD & PELVIS W/O CONTRAST (11/07/15) DRUG TEST PRSMV DIR OPT OBS (08/04/17) EGD BIOPSY SINGLE/MULTIPLE (01/29/17) ELECTROCARDIOGRAM TRACING (08/04/17) EMERGENCY DEPT VISIT (09/25/17) EMERGENCY DEPT VISIT (08/04/17) EMERGENCY DEPT VISIT (07/20/17) EMERGENCY DEPT VISIT (07/15/17) EMERGENCY DEPT VISIT (04/17/17) EMERGENCY DEPT VISIT (12/14/16) EMERGENCY DEPT VISIT (11/07/15) EMERGENCY DEPT VISIT (11/07/15) EMERGENCY DEPT VISIT (03/28/15) EMERGENCY DEPT VISIT (03/12/15) EMERGENCY DEPT VISIT (09/28/14) EMERGENCY DEPT VISIT (06/19/14) EMERGENCY DEPT VISIT (04/03/14) EXTREMITY STUDY (07/20/17) FIBRIN DEGRADATION QUANT (07/22/17) GASTRIC EMPTYING IMAG STUDY (02/03/17) GLUCOSE BLOOD TEST (09/25/17) GLYCOSYLATED HEMOGLOBIN TEST (09/30/17) HYDRATE IV INFUSION ADD-ON (08/04/17) IMMUNIZATION ADMIN (07/20/17) INFLUENZA ASSAY W/OPTIC (08/04/17) IRON BINDING TEST (09/25/17) LIPID PANEL (09/30/17) LUNG VENTILAT&PERFUS IMAGING (07/22/17) METABOLIC PANEL TOTAL CA (10/07/17) OCCULT BLD FECES 1-3 TESTS (11/07/15) PROTHROMBIN TIME (07/22/17) RENAL FUNCTION PANEL (09/02/17) ROUTINE VENIPUNCTURE (09/30/17) SPECIAL STAINS GROUP 1 (10/17/14) STOOL CULTR AEROBIC BACT EA (11/07/15) TDAP VACCINE 7 YRS/> IM (07/20/17) TEST FOR ACETONE/KETONES (07/20/17) THER/PROPH/DIAG INJ IV PUSH (08/04/17) THER/PROPH/DIAG INJ SC/IM (08/04/17) THER/PROPH/DIAG IV INF ADDON (07/22/17) THER/PROPH/DIAG IV INF INIT (08/04/17) TISSUE EXAM BY PATHOLOGIST (10/17/14) TTE W/DOPPLER COMPLETE (07/22/17) TX GASTRO INTUB W/ASP (08/04/17) TX/PRO/DX INJ NEW DRUG ADDON (08/04/17) TX/PRO/DX INJ SAME DRUG MECHANICAL DESIGN TECHNICIAN (08/04/17) UR ALBUMIN SEMIQUANTITATIVE (04/08/16) URINALYSIS AUTO W/O SCOPE (12/14/16) URINALYSIS AUTO W/SCOPE (08/04/17) US EXAM ABDO BACK WALL DIALLO (04/17/16) WITHDRAWAL OF ARTERIAL BLOOD (08/04/17) X-RAY EXAM OF FOOT (07/20/17) (1) Intractable nausea and vomiting SNOMED Code(s): 107667711 Code(s): R11.2 - NAUSEA WITH VOMITING, UNSPECIFIED Current Visit: Yes (2) Abdominal pain SNOMED Code(s): 86956501 Code(s): R10.9 - UNSPECIFIED ABDOMINAL PAIN Current Visit: No Onset Date : 09/28/14 Problem List Initiated/Reviewed/Updated: Yes Plan: The patient may have stress gastritis, gastroenteritis or PUD. I would continue the IV protonix and reglan for now. Check for H pylori. No need for an emergent scope at this time unless patient starts having large amounts of bloody vomitus or does not improve with medical management. Patient is non-compliant with cares , but would recommend he see me in clinic for a possible repeat scope.
[2017-12-05] MEDS: Insulin Aspart 100 Units/ML 3 ML Pen SUBCUT SCH ×5 (03:13→20:39)
[2017-12-05] MEDS: Metoclopramide 10 MG/2 ML SDV IVPUSH SCH ×4 (04:04→21:30)
[2017-12-05] MEDS: Ondansetron 4 MG/2 ML SDV IVPUSH PRN ×2 (05:24→13:06)
[2017-12-05] MEDS: Sodium Chloride 0.9% 1,000 ML IV SCH ×3 (06:18→22:57)
[2017-12-05] MEDS: hydrALAZINE 20 MG/ML SDV IVPUSH PRN ×2 (06:26→10:48)
[2017-12-05] MEDS: Morphine 4 MG/ML Syringe IVPUSH PRN ×3 (06:27→13:06)
[2017-12-05 07:09] LABS: CHLORIDE,CL 103 mmol/L (98-107); SODIUM,NA 137 mmol/L (136-148)
[2017-12-05] MEDS: Promethazine 25 MG/ML SDV IM PRN (07:51)
[2017-12-05] MEDS: Labetalol 100 MG/20 ML MDV IVPUSH PRN ×2 (08:54→20:42)
[2017-12-05] MEDS: Pantoprazole 80 MG in Sodium Chloride 0.9% 100 ML IV SCH ×2 (10:00→20:40)
[2017-12-05] MEDS ORDERED: Labetalol 100 MG/20 ML MDV IVPUSH ONE (11:09)
[2017-12-05] MEDS ORDERED: HYDROmorphone 2 MG/ML SDV IVPUSH ONE (13:47)
[2017-12-05] MEDS: Sucralfate 1 GM Tab PO SCH (16:08)
--- NOTE | 2017-12-05 22:51 | PCM.PN ---
- Review of Systems Systems Review Comment:: patient still having abdominal pain, nausea and vomiting - Patient Data Vitals - Most Recent: Last Vital Signs Temp 36.9 C 12/05/17 20:00 Pulse 95 12/05/17 20:42 Resp 18 12/05/17 20:00 BP 169/102 H 12/05/17 20:42 Pulse Ox 100 12/05/17 20:00 Weight - Most Recent: 77.1 kg I&O - Last 24 Hours: Intake & Output 12/05/17 12/05/17 12/05/17 06:59 14:59 22:59 Intake Total 1100 1000 2243 Output Total 850 2150 Balance 250 1000 93 Lab Results Last 24 Hours: Laboratory Results - last 24 hr 12/04/17 12/05/17 12/05/17 Range/Units 21:28 03:08 06:00 WBC 9.59 (4.0-11.0) K/uL RBC 5.04 (4.50-5.90) M/uL Hgb 10.5 L (13.0-17.0) g/dL Hct 33.0 L (38.0-50.0) % MCV 65.5 L (80.0-98.0) fL MCH 20.8 L (27.0-32.0) pg MCHC 31.8 (31.0-37.0) g/dL RDW Std Deviation 42.7 (28.0-62.0) fl RDW Coeff of Dania 18 H (11.0-15.0) % Plt Count 288 (150-400) K/uL Neut % (Auto) 55.2 (48.0-80.0) % Lymph % (Auto) 35.6 (16.0-40.0) % Pitt % (Auto) 7.8 (0.0-15.0) % Eos % (Auto) 0.9 (0.0-7.0) % Baso % (Auto) 0.5 (0.0-1.5) % Neut # (Auto) 5.3 (1.4-5.7) K/uL Lymph # (Auto) 3.4 H (0.6-2.4) K/uL Pitt # (Auto) 0.8 (0.0-0.8) K/uL Eos # (Auto) 0.1 (0.0-0.7) K/uL Baso # (Auto) 0.1 (0.0-0.1) K/uL Nucleated RBC % 0.0 /100WBC Nucleated RBCs # 0 K/uL Lactate (0.20-2.00) mmol/L Sodium (136-148) mmol/L Potassium (3.5-5.1) mmol/L Chloride (98-107) mmol/L Carbon Dioxide (21.0-32.0) mmol/L BUN (7.0-18.0) mg/dL Creatinine (0.8-1.3) mg/dL Est Cr Clr Drug Dosing mL/min Estimated GFR (MDRD) ml/min Glucose (74-106) mg/dL POC Glucose 180 H 125 H (60-110) mg/dL Calcium (8.5-10.1) mg/dL 12/05/17 12/05/17 12/05/17 Range/Units 06:00 08:03 12:01 WBC (4.0-11.0) K/uL RBC (4.50-5.90) M/uL Hgb (13.0-17.0) g/dL Hct (38.0-50.0) % MCV (80.0-98.0) fL MCH (27.0-32.0) pg MCHC (31.0-37.0) g/dL RDW Std Deviation (28.0-62.0) fl RDW Coeff of Dania (11.0-15.0) % Plt Count (150-400) K/uL Neut % (Auto) (48.0-80.0) % Lymph % (Auto) (16.0-40.0) % Pitt % (Auto) (0.0-15.0) % Eos % (Auto) (0.0-7.0) % Baso % (Auto) (0.0-1.5) % Neut # (Auto) (1.4-5.7) K/uL Lymph # (Auto) (0.6-2.4) K/uL Pitt # (Auto) (0.0-0.8) K/uL Eos # (Auto) (0.0-0.7) K/uL Baso # (Auto) (0.0-0.1) K/uL Nucleated RBC % /100WBC Nucleated RBCs # K/uL Lactate (0.20-2.00) mmol/L Sodium 137 (136-148) mmol/L Potassium 3.4 L (3.5-5.1) mmol/L Chloride 103 (98-107) mmol/L Carbon Dioxide 26.1 (21.0-32.0) mmol/L BUN 17 (7.0-18.0) mg/dL Creatinine 1.5 H (0.8-1.3) mg/dL Est Cr Clr Drug Dosing 71.35 mL/min Estimated GFR (MDRD) > 60.0 ml/min Glucose 223 H (74-106) mg/dL POC Glucose 322 H 127 H (60-110) mg/dL Calcium 8.7 (8.5-10.1) mg/dL 12/05/17 12/05/17 12/05/17 Range/Units 13:56 16:10 20:39 WBC (4.0-11.0) K/uL RBC (4.50-5.90) M/uL Hgb (13.0-17.0) g/dL Hct (38.0-50.0) % MCV (80.0-98.0) fL MCH (27.0-32.0) pg MCHC (31.0-37.0) g/dL RDW Std Deviation (28.0-62.0) fl RDW Coeff of Dania (11.0-15.0) % Plt Count (150-400) K/uL Neut % (Auto) (48.0-80.0) % Lymph % (Auto) (16.0-40.0) % Pitt % (Auto) (0.0-15.0) % Eos % (Auto) (0.0-7.0) % Baso % (Auto) (0.0-1.5) % Neut # (Auto) (1.4-5.7) K/uL Lymph # (Auto) (0.6-2.4) K/uL Pitt # (Auto) (0.0-0.8) K/uL Eos # (Auto) (0.0-0.7) K/uL Baso # (Auto) (0.0-0.1) K/uL Nucleated RBC % /100WBC Nucleated RBCs # K/uL Lactate 1.3 (0.20-2.00) mmol/L Sodium (136-148) mmol/L Potassium (3.5-5.1) mmol/L Chloride (98-107) mmol/L Carbon Dioxide (21.0-32.0) mmol/L BUN (7.0-18.0) mg/dL Creatinine (0.8-1.3) mg/dL Est Cr Clr Drug Dosing mL/min Estimated GFR (MDRD) ml/min Glucose (74-106) mg/dL POC Glucose 237 H 95 (60-110) mg/dL Calcium (8.5-10.1) mg/dL Med Orders - Current: Current Medications Hydralazine HCl (Apresoline) 10 mg IVPUSH Q2H PRN PRN Reason: Hypertension Last Admin: 12/05/17 10:48 Dose: 10 mg Hydromorphone HCl (Dilaudid) 2 mg IVPUSH Q2H PRN PRN Reason: Abdominal Pain Pantoprazole Sodium 80 mg/ (Sodium Chloride) 100 mls @ 10 mls/hr IV Q10H [facility] Last Admin: 12/05/17 20:40 Dose: 10 mls/hr Sodium Chloride (Normal Saline) 1,000 mls @ 125 mls/hr IV ASDIRECTED [facility] Last Admin: 12/05/17 14:52 Dose: 125 mls/hr Insulin Aspart (Novolog) 0 unit SUBCUT Q6H MICHAEL PRN Reason: Protocol Last Admin: 12/05/17 20:39 Dose: Not Given Labetalol HCl (Normodyne) 10 mg IVPUSH Q4H PRN PRN Reason: SBP>160 Last Admin: 12/05/17 20:42 Dose: 10 mg Metoclopramide HCl (Reglan) 10 mg IVPUSH Q6H MICHAEL Last Admin: 12/05/17 21:30 Dose: 10 mg Morphine Sulfate (Morphine) 2 mg IVPUSH Q3H PRN PRN Reason: Pain Last Admin: 12/05/17 13:06 Dose: 2 mg Ondansetron HCl (Zofran) 8 mg IVPUSH Q6H PRN PRN Reason: Nausea/Vomiting Last Admin: 12/05/17 13:06 Dose: 8 mg Promethazine HCl (Phenergan) 25 mg IM Q6H PRN PRN Reason: Nausea/Vomiting Last Admin: 12/05/17 07:51 Dose: 25 mg Sucralfate (Carafate) 1 gm PO TIDAC MICHAEL Last Admin: 12/05/17 16:08 Dose: 1 gm Discontinued Medications Hydralazine HCl (Apresoline) 10 mg IVPUSH ONETIME ONE Stop: 12/04/17 00:50 Last Admin: 12/04/17 00:58 Dose: 10 mg Hydromorphone HCl (Dilaudid) 2 mg IVPUSH ONETIME ONE Stop: 12/05/17 13:48 Last Admin: 12/05/17 14:40 Dose: 2 mg Sodium Chloride (Normal Saline) 1,000 mls @ 999 mls/hr IV STAT ONE Stop: 12/04/17 00:17 Last Admin: 12/03/17 23:22 Dose: 999 mls/hr Sodium Chloride (Normal Saline) 1,000 mls @ 1,000 mls/hr IV .Bolus ONE Stop: 12/04/17 05:30 Last Admin: 12/04/17 04:50 Dose: 1,000 mls/hr Insulin Aspart (Novolog) Confirm Administered Dose 300 unit .ROUTE .STK-MED ONE Stop: 12/04/17 03:33 Last Admin: 12/04/17 03:48 Dose: Not Given Labetalol HCl (Normodyne) 20 mg IVPUSH ONETIME ONE PRN Reason: Protocol Stop: 12/04/17 05:41 Last Admin: 12/04/17 06:23 Dose: Not Given Labetalol HCl (Normodyne) 20 mg IVPUSH ONETIME ONE PRN Reason: Protocol Stop: 12/05/17 11:10 Last Admin: 12/05/17 17:28 Dose: Not Given Morphine Sulfate (Morphine) 2 mg IVPUSH Q3H PRN PRN Reason: Pain Ondansetron HCl (Zofran) 4 mg IVPUSH ONETIME ONE Stop: 12/03/17 23:18 Last Admin: 12/03/17 23:27 Dose: 4 mg Ondansetron HCl (Zofran) 8 mg IVPUSH Q6H [facility] Last Admin: 12/04/17 03:21 Dose: Not Given Pantoprazole Sodium (Protonix Iv) 80 mg IVPUSH NOW ONE Stop: 12/03/17 23:50 Last Admin: 12/03/17 23:58 Dose: 80 mg - Exam General: Alert, Oriented Lungs: Clear to Auscultation, Normal Respiratory Effort Cardiovascular: Regular Rate, Regular Rhythm GI/Abdominal Exam: Soft, Non-Tender, No Distention. No: Guarding, Rigid Neurological: No New Focal Deficit - Problem List Review Problem List Initiated/Reviewed/Updated: Yes - My Orders Last 24 Hours: My Active Orders 12/06/17 05:00 CMP [COMPREHENSIVE METABOLIC PN,CMP] [CHEM] Routine - Plan Plan:: 32 yo male admitted for intractable nausea and vomiting and suspected upper GI bleed. 1 Gastritis: will continue protonix and carafate. Does have intermitent episodes of severe pain lactic acid is normal. Dr. West has been consulted and recommends continued medical management. If no improvement may do EGD. 2. DM Type 1: Continue sliding scale insulin 3. CKD: Stable and at baseline. Monitor. 4. HTN: Elevated at times. will resume home regiment
[2017-12-06] MEDS: HYDROmorphone 2 MG/ML Syringe IVPUSH PRN ×3 (00:05→09:01)
[2017-12-06] MEDS: Insulin Aspart 100 Units/ML 3 ML Pen SUBCUT SCH ×4 (02:40→18:09)
[2017-12-06] MEDS: Labetalol 100 MG/20 ML MDV IVPUSH PRN ×2 (02:47→08:41)
[2017-12-06] MEDS ORDERED: Acetaminophen 325 MG Tab PO PRN (04:39)
[2017-12-06] MEDS: Metoclopramide 10 MG/2 ML SDV IVPUSH SCH ×3 (04:50→16:14)
[2017-12-06] MEDS: Sucralfate 1 GM Tab PO SCH ×3 (06:36→16:13)
[2017-12-06 06:53] LABS: CHLORIDE,CL 103 mmol/L (98-107)
[2017-12-06] MEDS: Sodium Chloride 0.9% 1,000 ML IV SCH ×2 (06:59→15:17)
[2017-12-06] MEDS: Pantoprazole 80 MG in Sodium Chloride 0.9% 100 ML IV SCH ×2 (06:59→14:12)
[2017-12-06 07:04] LABS: SODIUM,NA 133 mmol/L (136-148)
[2017-12-06] MEDS ORDERED: amLODIPine 5 MG Tab PO SCH (15:00)
[2017-12-06] MEDS ORDERED: Spironolactone 25 MG Tab PO SCH (15:00)
[2017-12-06] MEDS ORDERED: Doxazosin 2 MG Tab PO SCH (15:00)
--- NOTE | 2017-12-06 15:23 | PCM.DCSUM1 ---
Discharge Summary - Discharge Data Discharge Date: 12/06/17 Discharge Disposition: Home, Self-Care 01 Condition: Good - Patient Summary/Data Consults: Consultations 12/04/17 10:58 Consult to Physician [CONS] Routine Hospital Course: Admission diagnosis: Gastritis 32 yo male admitted for abdominal pain, nausea and vomiting. He was treated with IV fluids, protonix, bowel rest and prn narcotics. He did have improvement in his symptoms and today he is requesting discharge home. During his hospital stay Dr. West was consulted and felt there was no need for EGD during this hospitalization. He was discharged with oral protonix to follow up with [facility]. - Discharge Plan Prescriptions/Med Rec: Pantoprazole Sodium [Protonix] 40 mg PO DAILY #20 tablet.dr Flores Medications: Home Meds RX: Omeprazole Magnesium [Prilosec Otc] 40 mg PO DAILY 07/15/17 [History] RX: Doxazosin [Cardura] 2 mg PO DAILY 09/25/17 [History] RX: Enalapril [Vasotec] 40 mg PO DAILY 09/25/17 [History] RX: Insulin Glargine,Hum.Rec.Anlog [Toujeo Solostar] 38 unit SQ DAILY 09/25/17 [ History] RX: Spironolactone [Aldactone] 25 mg PO DAILY 09/25/17 [History] RX: Torsemide 20 mg PO DAILY 09/25/17 [History] RX: amLODIPine Besylate [Amlodipine Besylate] 10 mg PO DAILY 09/25/17 [History] RX: Insulin Aspart [NovoLOG] 0 unit SUBCUT ASDIRECTED 10/07/17 [History] RX: Iron Polysaccharide Complex [Polysaccharide Iron 150] 150 mg PO DAILY #30 capsule 10/08/17 [Rx] RX: Sulfamethoxazole/Trimethoprim [Bactrim Ds Tablet] 1 each PO BID #14 tablet 10/09/17 [Rx] Pantoprazole Sodium [Protonix] 40 mg PO DAILY #20 tablet. 12/06/17 [Rx] Referrals: Liliana West MD [Physician] - - Patient Data Vitals - Most Recent: Last Vital Signs Temp 36.2 C 12/06/17 11:49 Pulse 94 12/06/17 11:49 Resp 22 H 12/06/17 11:49 BP 154/82 H 12/06/17 11:49 Pulse Ox 98 12/06/17 11:49 Weight - Most Recent: 77.1 kg I&O - Last 24 hours: Intake & Output 12/06/17 12/06/17 12/06/17 06:59 14:59 22:59 Output Total 1450 Balance -1450 Lab Results - Last 24 hrs: Laboratory Results - last 24 hr 12/05/17 12/05/17 12/06/17 Range/Units 16:10 20:39 02:20 WBC (4.0-11.0) K/uL RBC (4.50-5.90) M/uL Hgb (13.0-17.0) g/dL Hct (38.0-50.0) % MCV (80.0-98.0) fL MCH (27.0-32.0) pg MCHC (31.0-37.0) g/dL RDW Std Deviation (28.0-62.0) fl RDW Coeff of Dania (11.0-15.0) % Plt Count (150-400) K/uL MPV (7.40-12.00) fL Neut % (Auto) (48.0-80.0) % Lymph % (Auto) (16.0-40.0) % Bucks % (Auto) (0.0-15.0) % Eos % (Auto) (0.0-7.0) % Baso % (Auto) (0.0-1.5) % Neut # (Auto) (1.4-5.7) K/uL Lymph # (Auto) (0.6-2.4) K/uL Bucks # (Auto) (0.0-0.8) K/uL Eos # (Auto) (0.0-0.7) K/uL Baso # (Auto) (0.0-0.1) K/uL Nucleated RBC % /100WBC Nucleated RBCs # K/uL Sodium (136-148) mmol/L Potassium (3.5-5.1) mmol/L Chloride (98-107) mmol/L Carbon Dioxide (21.0-32.0) mmol/L BUN (7.0-18.0) mg/dL Creatinine (0.8-1.3) mg/dL Est Cr Clr Drug Dosing mL/min Estimated GFR (MDRD) ml/min Glucose (74-106) mg/dL POC Glucose 237 H 95 173 H (60-110) mg/dL Calcium (8.5-10.1) mg/dL Total Bilirubin (0.2-1.0) mg/dL AST (15-37) IU/L ALT (14-63) IU/L Alkaline Phosphatase (46-116) U/L Total Protein (6.4-8.2) g/dL Albumin (3.4-5.0) g/dL Globulin (2.0-3.5) g/dL Albumin/Globulin Ratio (1.3-2.8) 12/06/17 12/06/17 12/06/17 Range/Units 06:12 06:12 06:15 WBC 8.50 (4.0-11.0) K/uL RBC 4.29 L (4.50-5.90) M/uL Hgb 8.9 L (13.0-17.0) g/dL Hct 28.5 L (38.0-50.0) % MCV 66.4 L (80.0-98.0) fL MCH 20.7 L (27.0-32.0) pg MCHC 31.2 (31.0-37.0) g/dL RDW Std Deviation 43.1 (28.0-62.0) fl RDW Coeff of Dania 18 H (11.0-15.0) % Plt Count 266 (150-400) K/uL MPV 9.60 (7.40-12.00) fL Neut % (Auto) 56.0 (48.0-80.0) % Lymph % (Auto) 35.1 (16.0-40.0) % Bucks % (Auto) 6.9 (0.0-15.0) % Eos % (Auto) 1.4 (0.0-7.0) % Baso % (Auto) 0.6 (0.0-1.5) % Neut # (Auto) 4.8 (1.4-5.7) K/uL Lymph # (Auto) 3.0 H (0.6-2.4) K/uL Bucks # (Auto) 0.6 (0.0-0.8) K/uL Eos # (Auto) 0.1 (0.0-0.7) K/uL Baso # (Auto) 0.1 (0.0-0.1) K/uL Nucleated RBC % 0.0 /100WBC Nucleated RBCs # 0 K/uL Sodium 133 L (136-148) mmol/L Potassium 3.9 (3.5-5.1) mmol/L Chloride 103 (98-107) mmol/L Carbon Dioxide 21.2 (21.0-32.0) mmol/L BUN 18 (7.0-18.0) mg/dL Creatinine 1.6 H (0.8-1.3) mg/dL Est Cr Clr Drug Dosing 66.89 mL/min Estimated GFR (MDRD) > 60.0 ml/min Glucose 186 H (74-106) mg/dL POC Glucose 190 H (60-110) mg/dL Calcium 8.0 L (8.5-10.1) mg/dL Total Bilirubin 0.2 (0.2-1.0) mg/dL AST 34 (15-37) IU/L ALT 17 (14-63) IU/L Alkaline Phosphatase 90 (46-116) U/L Total Protein 5.8 L (6.4-8.2) g/dL Albumin 2.1 L (3.4-5.0) g/dL Globulin 3.7 H (2.0-3.5) g/dL Albumin/Globulin Ratio 0.6 L (1.3-2.8) 12/06/17 12/06/17 Range/Units 08:19 11:19 WBC (4.0-11.0) K/uL RBC (4.50-5.90) M/uL Hgb (13.0-17.0) g/dL Hct (38.0-50.0) % MCV (80.0-98.0) fL MCH (27.0-32.0) pg MCHC (31.0-37.0) g/dL RDW Std Deviation (28.0-62.0) fl RDW Coeff of Dania (11.0-15.0) % Plt Count (150-400) K/uL MPV (7.40-12.00) fL Neut % (Auto) (48.0-80.0) % Lymph % (Auto) (16.0-40.0) % Bucks % (Auto) (0.0-15.0) % Eos % (Auto) (0.0-7.0) % Baso % (Auto) (0.0-1.5) % Neut # (Auto) (1.4-5.7) K/uL Lymph # (Auto) (0.6-2.4) K/uL Bucks # (Auto) (0.0-0.8) K/uL Eos # (Auto) (0.0-0.7) K/uL Baso # (Auto) (0.0-0.1) K/uL Nucleated RBC % /100WBC Nucleated RBCs # K/uL Sodium (136-148) mmol/L Potassium (3.5-5.1) mmol/L Chloride (98-107) mmol/L Carbon Dioxide (21.0-32.0) mmol/L BUN (7.0-18.0) mg/dL Creatinine (0.8-1.3) mg/dL Est Cr Clr Drug Dosing mL/min Estimated GFR (MDRD) ml/min Glucose (74-106) mg/dL POC Glucose 240 H 135 H (60-110) mg/dL Calcium (8.5-10.1) mg/dL Total Bilirubin (0.2-1.0) mg/dL AST (15-37) IU/L ALT (14-63) IU/L Alkaline Phosphatase (46-116) U/L Total Protein (6.4-8.2) g/dL Albumin (3.4-5.0) g/dL Globulin (2.0-3.5) g/dL Albumin/Globulin Ratio (1.3-2.8) Med Orders - Current: Current Medications Acetaminophen (Tylenol) 650 mg PO Q4H PRN PRN Reason: Headache Last Admin: 12/06/17 14:25 Dose: 650 mg Amlodipine Besylate (Norvasc) 10 mg PO DAILY MICHAEL Doxazosin Mesylate (Cardura) 2 mg PO DAILY MICHAEL Enalapril Maleate (Vasotec) 40 mg PO DAILY MICHAEL Hydralazine HCl (Apresoline) 10 mg IVPUSH Q2H PRN PRN Reason: Hypertension Last Admin: 12/05/17 10:48 Dose: 10 mg Hydromorphone HCl (Dilaudid) 2 mg IVPUSH Q2H PRN PRN Reason: Abdominal Pain Last Admin: 12/06/17 09:01 Dose: 2 mg Sodium Chloride (Normal Saline) 1,000 mls @ 125 mls/hr IV ASDIRECTED [facility] Last Admin: 12/06/17 15:17 Dose: 125 mls/hr Insulin Aspart (Novolog) 0 unit SUBCUT Q6H MICHAEL PRN Reason: Protocol Last Admin: 12/06/17 08:40 Dose: 4 units Labetalol HCl (Normodyne) 10 mg IVPUSH Q4H PRN PRN Reason: SBP>160 Last Admin: 12/06/17 08:41 Dose: 10 mg Metoclopramide HCl (Reglan) 10 mg IVPUSH Q6H [facility] Last Admin: 12/06/17 10:38 Dose: 10 mg Morphine Sulfate (Morphine) 2 mg IVPUSH Q3H PRN PRN Reason: Pain Last Admin: 12/05/17 13:06 Dose: 2 mg Ondansetron HCl (Zofran) 8 mg IVPUSH Q6H PRN PRN Reason: Nausea/Vomiting Last Admin: 12/05/17 13:06 Dose: 8 mg Promethazine HCl (Phenergan) 25 mg IM Q6H PRN PRN Reason: Nausea/Vomiting Last Admin: 12/05/17 07:51 Dose: 25 mg Spironolactone (Aldactone) 25 mg PO DAILY [facility] Sucralfate (Carafate) 1 gm PO TIDAC [facility] Last Admin: 12/06/17 10:38 Dose: 1 gm Discontinued Medications Hydralazine HCl (Apresoline) 10 mg IVPUSH ONETIME ONE Stop: 12/04/17 00:50 Last Admin: 12/04/17 00:58 Dose: 10 mg Hydromorphone HCl (Dilaudid) 2 mg IVPUSH ONETIME ONE Stop: 12/05/17 13:48 Last Admin: 12/05/17 14:40 Dose: 2 mg Sodium Chloride (Normal Saline) 1,000 mls @ 999 mls/hr IV STAT ONE Stop: 12/04/17 00:17 Last Admin: 12/03/17 23:22 Dose: 999 mls/hr Pantoprazole Sodium 80 mg/ (Sodium Chloride) 100 mls @ 10 mls/hr IV Q10H [facility] Last Admin: 12/06/17 14:12 Dose: Not Given Sodium Chloride (Normal Saline) 1,000 mls @ 1,000 mls/hr IV .Bolus ONE Stop: 12/04/17 05:30 Last Admin: 12/04/17 04:50 Dose: 1,000 mls/hr Insulin Aspart (Novolog) Confirm Administered Dose 300 unit .ROUTE .STK-MED ONE Stop: 12/04/17 03:33 Last Admin: 12/04/17 03:48 Dose: Not Given Labetalol HCl (Normodyne) 20 mg IVPUSH ONETIME ONE PRN Reason: Protocol Stop: 12/04/17 05:41 Last Admin: 12/04/17 06:23 Dose: Not Given Labetalol HCl (Normodyne) 20 mg IVPUSH ONETIME ONE PRN Reason: Protocol Stop: 12/05/17 11:10 Last Admin: 12/05/17 17:28 Dose: Not Given Morphine Sulfate (Morphine) 2 mg IVPUSH Q3H PRN PRN Reason: Pain Ondansetron HCl (Zofran) 4 mg IVPUSH ONETIME ONE Stop: 12/03/17 23:18 Last Admin: 12/03/17 23:27 Dose: 4 mg Ondansetron HCl (Zofran) 8 mg IVPUSH Q6H [facility] Last Admin: 12/04/17 03:21 Dose: Not Given Pantoprazole Sodium (Protonix Iv) 80 mg IVPUSH NOW ONE Stop: 12/03/17 23:50 Last Admin: 12/03/17 23:58 Dose: 80 mg *Q Meaningful Use (DIS) - VTE *Q VTE Criteria *Q: - Stroke *Q Stroke Criteria *Q: - AMI *Q AMI Criteria *Q:
[2017-12-06 18:12] VITALS: BP 180/96
== END 2017-12-06 18:30 | disposition home or self-care (01) | DRG 379 ==
LOC: MW.ED 23:02 → MW.ICU 12-04 00:53 → MW.MS 12-04 16:59
PROVIDERS: ADMIT Internal Medicine; ATTEND Internal Medicine
DX: K92.2 Gastrointestinal hemorrhage, unspecified (principal); R11.2 Nausea with vomiting, unspecified; I12.9 Hypertensive chronic kidney disease with stage 1 through stage 4 chronic kidney disease, or unspecified chronic kidney disease; E10.22 Type 1 diabetes mellitus with diabetic chronic kidney disease; N18.9 Chronic kidney disease, unspecified; E10.42 Type 1 diabetes mellitus with diabetic polyneuropathy; F41.9 Anxiety disorder, unspecified; Z79.4 Long term (current) use of insulin; Z88.0 Allergy status to penicillin; Z79.899 Other long term (current) drug therapy
CPT/HCPCS: 36415; 36600; 71045; 71045-26; 74176; 74176-26; 80048; 80053; 80305; 81001; 82803; 82962; 83605; 83690; 85025; 86677; 93005; 96361; 96365; 96375; 96376; 99283; 99285-25; A9270-GY; C9113; J0360; J1170; J2270; J2405; J2550; J2765; J7030; J7040

== ENCOUNTER 2018-01-20 16:07 | Inpatient (IN) | payer OTHER ==
[2018-01-20] MEDS ORDERED: Acetaminophen 325 MG Tab PO PRN (16:37)
[2018-01-20] MEDS ORDERED: Sodium Chloride 0.9% 2.5 ML Syringe FLUSH PRN (16:37)
[2018-01-20] MEDS ORDERED: Docusate Sodium 100 MG Cap PO PRN (16:37)
[2018-01-20] MEDS ORDERED: Sodium Chloride 0.9% 1,000 ML IV SCH (16:45)
--- NOTE | 2018-01-20 16:46 | PCM.HP ---
H&P History of Present Illness - General Date of Service: 01/20/18 Admit Problem/Dx: Admission Diagnosis/Problem Admission Diagnosis/Problem Leukocytosis Source of Information: Patient History Limitations: Reports: No Limitations - History of Present Illness Initial Comments - Free Text/Narative: This 32 year old male with pmh of uncontrolled DM type 1, CKD, HTN, and diabetic foot ulcers presented today to outpatient PCP, Dr Infante for pre- operative clearance for amputation of R 5th digit due to necrosis. Labwork was obtained which revealed leukocytosis and acute on chronic kidney injury. Admission was recommended to assess foot and stabilize patient for surgical intervention this week. Waqas reports he has been feeling more ill the last few days, lightheaded and dizzy with ambulation along with some dyspnea. He reports he has felt a little warm but no measured temperatures or fevers. He reports having to increase his insulin slightly, reports BS have been elevated in 200-300s. He denies chest pain, N/V, abdominal pain or black or bloody BMs. No heart burn and no black or bloody emesis. He has been following with Dr English regarding blister which started a few weeks ago to his R 5th digit. The blister popped and then noted black tissue. Dr English has been monitoring and in discussion with Waqas they have decided it is best to amputate the distal portion of his 5th digit at least , but may need entire 5 digit removed. He reports pain worsens when he is on his feet for long periods of time. Feels like nerve pain and shoots up his leg to his knee. Swelling has started to his R lower leg as well, no calf pain, redness or pain. Feels tight from edema. In the clinic, leukocytosis noted at 20,010, hgb 7.9, HCT 25, Na 130, K+ 5.5, BUN 53 and Cr 2.6, which is elevated from BUN 30s and Cr 1.5 at baseline. A1c 12.4, up from 11.3 at last admission in September. VS stable in clinic, no tachycardia or hypotension and no fever. CXR on 01/19/2018 negative. He will be admitted inpatient for leukocytosis, gangrenous R lower 5th digit, anemia and acute on chronic kidney injury. PCP, Dr. Infante I did speak with Dr English regarding plan for surgical intervention. He would like us to clear him for surgery when possible and he would like to remove the R 5th lower digit if possible. He would like Hgb to be higher than 7.9 and leukocytosis improved. he recommends MRI if foot looks more involved. Regarding CKD, Waqas saw Dr Hendrickson recently and started a Iron supplementation regimen to help with anemia. No recent N/V of black or bloody emesis and no changes to BMs. - Related Data Allergies/Adverse Reactions: Allergies Allergy/AdvReac Type Severity Reaction Status Date / Time shrimp Allergy Severe Other Verified 12/03/17 23:23 iodine Allergy Unknown Anaphylactic Verified 12/03/17 23:23 Shock Penicillins Allergy Unknown Anaphylactic Verified 12/03/17 23:23 Shock gluten Allergy Unknown Muscle Uncoded 12/03/17 23:23 Aches Home Medications: Home Meds RX: Omeprazole Magnesium [Prilosec Otc] 40 mg PO DAILY 07/15/17 [History] RX: Doxazosin [Cardura] 2 mg PO DAILY 09/25/17 [History] RX: Enalapril [Vasotec] 40 mg PO DAILY 09/25/17 [History] RX: Insulin Glargine,Hum.Rec.Anlog [Toujeo Solostar] 45 unit SQ DAILY 09/25/17 [ History] RX: Spironolactone [Aldactone] 25 mg PO DAILY 09/25/17 [History] RX: Torsemide 20 mg PO DAILY 09/25/17 [History] RX: amLODIPine Besylate [Amlodipine Besylate] 10 mg PO DAILY 09/25/17 [History] RX: Insulin Aspart [NovoLOG] 0 unit SUBCUT ASDIRECTED 10/07/17 [History] RX: Ferrous Sulfate 324 mg PO DAILY 01/20/18 [History] Silver Sulfadiazine [Ssd] 20 gm TP DAILY 01/20/18 [History] Past Medical History - Past Health History Medical/Surgical History: Denies Medical/Surgical History HEENT History: Reports: Impaired Vision Cardiovascular History: Reports: Hypertension Respiratory History: Reports: None Gastrointestinal History: Reports: Gastritis, GERD, Hiatal Hernia Genitourinary History: Reports: Chronic Renal Insuffiency, Diabetic Nephropathy Musculoskeletal History: Reports: None Neurological History: Reports: Neuropathy, Peripheral Psychiatric History: Reports: Anxiety Endocrine/Metabolic History: Reports: Diabetes, Type I Hematologic History: Reports: Anemia Immunologic History: Reports: None Oncologic (Cancer) History: Reports: None Dermatologic History: Reports: Other (See Below) Other Dermatologic History: diabetic foot ulcers - Infectious Disease History Infectious Disease History: Reports: Chicken Pox Other Infectious Disease History: 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 - Past Surgical History Head Surgeries/Procedures: Reports: None HEENT Surgical History: Reports: None Cardiovascular Surgical History: Reports: None Respiratory Surgical History: Reports: None GI Surgical History: Reports: EGD Male Surgical History: Reports: None Endocrine Surgical History: Reports: None Dermatological Surgical History: Reports: None Social & Family History - Family History Family Medical History: Noncontributory Cardiac: Reports: High Cholesterol, Hypertension OBGYN: Reports: Neurological: Reports: None - Tobacco Use Smoking Status *Q: Former Smoker Years of Tobacco use: 10 - Caffeine Use Caffeine Use: Reports: Coffee - Alcohol Use Alcohol Use History: No - Recreational Drug Use Recreational Drug Type: Reports: Marijuana/Hashish - Living Situation & Occupation Living situation: Reports: Single Occupation: Employed (Currently unemployed.) H&P Review of Systems - Review of Systems: Review Of Systems: See Below General: Reports: Malaise, Fatigue HEENT: Reports: No Symptoms. Denies: Headaches, Sinus Congestion, Visual Changes Pulmonary: Reports: Shortness of Breath (with some ambulation). Denies: Cough, Sputum Cardiovascular: Reports: Edema (R lower extremity). Denies: Chest Pain, Palpitations Gastrointestinal: Reports: No Symptoms. Denies: Abdominal Pain, Black Stool, Bloody Stool, Decreased Appetite, Hematemesis, Hematochezia, Nausea, Vomiting Genitourinary: Reports: No Symptoms. Denies: Dysuria, Frequency, Burning Musculoskeletal: Reports: Other (R foot pain mainly 5th digit) Skin: Reports: Wound (R lower 5th digit) Neurological: Reports: No Symptoms Hematologic/Lymphatic: Reports: Anemia Immunologic: Reports: No Symptoms Exam - Exam Exam: See Below - Exam Quality Assessment: DVT Prophylaxis (SCDs only due to GI bleeding hx) General: Alert, Oriented, Cooperative HEENT: Conjunctiva Clear, Mucosa Moist & [place], Nares Patent, Posterior Pharynx Clear Neck: Supple, Trachea Midline, 2 Lungs: Clear to Auscultation, Normal Respiratory Effort Cardiovascular: Regular Rate, Regular Rhythm GI/Abdominal Exam: Normal Bowel Sounds, Soft, Non-Tender, No Organomegaly, No Distention, No Abnormal Bruit, No Mass, Pelvis Stable Extremities: Normal Range of Motion, Normal Capillary Refill, Pedal Edema (+2 edema to R lower extremity). No: Michael's Sign Skin: Wound (necrotic, foul smelling 5th digit to R foot. Distal portion of 5th digit necrotis with peeling skin below. No purulent drainage, but +2 pitting edema to foot and R lower leg, with tenderness to R forefoot. No obvious erythema noted, but there is increased warmth to R foot. ) Neuro Extensive - Mental Status: Alert, Oriented x3, Normal Mood/Affect, Normal Cognition Neuro Extensive - Motor, Sensory, Reflexes: CN II-XII Intact Psychiatric: Alert, Normal Affect, Normal Mood *Q Meaningful Use (ADM) - VTE *Q VTE Pharmacological Contraindications *Q: Risk of Bleeding - Problem List (1) Diabetic foot ulcer SNOMED Code(s): 451889747 ICD Code: E11.621 - TYPE 2 DIABETES MELLITUS WITH FOOT ULCER; L97.509 - NON- PRESSURE CHRONIC ULCER OTH PRT UNSP FOOT W UNSP SEVERITY Status: Acute Current Visit: No Qualifiers: Diabetic foot ulcer location: toe Diabetes mellitus type: type 1 Laterality: right Non-pressure ulcer stage: with necrosis of muscle Qualified Code(s): E10.621 - Type 1 diabetes mellitus with foot ulcer; L97.513 - Non-pressure chronic ulcer of other part of right foot with necrosis of muscle (2) History of GI bleed SNOMED Code(s): 552071173 ICD Code: Z87.19 - PERSONAL HISTORY OF OTHER DISEASES OF THE DIGESTIVE SYSTEM Status: Chronic Current Visit: Yes (3) Diabetic gastroparesis SNOMED Code(s): 937969830 ICD Code: E11.43 - TYPE 2 DIABETES W DIABETIC AUTONOMIC (POLY)NEUROPATHY; K31.84 - GASTROPARESIS Status: Chronic Current Visit: No (4) Chronic renal insufficiency SNOMED Code(s): 074486161 ICD Code: N18.9 - CHRONIC KIDNEY DISEASE, UNSPECIFIED Status: Chronic Current Visit: No (5) Diabetes mellitus type I SNOMED Code(s): 41465418 ICD Code: E10.9 - TYPE 1 DIABETES MELLITUS WITHOUT COMPLICATIONS Status: Chronic Current Visit: No Qualifiers: Diabetes mellitus complication status: with kidney complications Diabetes mellitus complication detail: with chronic kidney disease (6) Hypertension SNOMED Code(s): 94318469 ICD Code: I10 - ESSENTIAL (PRIMARY) HYPERTENSION Status: Chronic Current Visit: No Qualifiers: Hypertension type: essential hypertension Qualified Code(s): I10 - Essential (primary) hypertension (7) Hx of gastroesophageal reflux (GERD) SNOMED Code(s): 33704253103206 ICD Code: Z87.19 - PERSONAL HISTORY OF OTHER DISEASES OF THE DIGESTIVE SYSTEM Status: Chronic Current Visit: Yes (8) Hx MRSA infection SNOMED Code(s): 322071669, 987156623 ICD Code: Z86.14 - PERSONAL HISTORY OF METHICILLIN RESIS STAPH INFECTION Status: Chronic Current Visit: Yes (9) Anemia SNOMED Code(s): 296018583 ICD Code: D64.9 - ANEMIA, UNSPECIFIED Status: Chronic Current Visit: No Qualifiers: Anemia type: due to chronic kidney disease Problem List Initiated/Reviewed/Updated: Yes Orders Last 24hrs: Active Orders 24 hr Category Date Time Status Patient Status [ADT] Routine ADT 01/20/18 16:37 Ordered Intake and Output [RC] QSHIFT Care 01/20/18 16:38 Ordered Notify Provider Consults [RC] ASDIRECTED Care 01/20/18 16:40 Ordered Oxygen Therapy [RC] PRN Care 01/20/18 16:37 Ordered Up ad Ruth [RC] ASDIRECTED Care 01/20/18 16:37 Ordered VTE/DVT Education [RC] PER UNIT ROUTINE Care 01/20/18 16:37 Ordered Verify Patient Consent Obtain [RC] ASDIRECTED Care 01/20/18 16:41 Ordered Vital Signs [RC] Q4H Care 01/20/18 16:37 Ordered Consult to Physician [CONS] Routine Cons 01/20/18 16:37 Ordered [employer] Diet [DIET] Diet 01/20/18 Dinner Ordered BASIC METABOLIC PANEL,BMP [CHEM] AM Lab 01/21/18 05:11 Ordered BASIC METABOLIC PANEL,BMP [CHEM] AM Lab 01/22/18 05:11 Ordered BASIC METABOLIC PANEL,BMP [CHEM] AM Lab 01/23/18 05:11 Ordered BMP [BASIC METABOLIC PANEL,BMP] [CHEM] Routine Lab 01/20/18 16:41 Ordered CBC WITH AUTO DIFF [HEME] AM Lab 01/21/18 05:11 Ordered CBC WITH AUTO DIFF [HEME] AM Lab 01/22/18 05:11 Ordered CBC WITH AUTO DIFF [HEME] AM Lab 01/23/18 05:11 Ordered CULTURE BLOOD [BC] Stat Lab 01/20/18 16:40 Ordered CULTURE BLOOD [BC] Stat Lab 01/20/18 16:40 Ordered RED BLOOD CELLS LP [BBK] Routine Lab 01/20/18 16:41 Ordered TYPE AND SCREEN [BBK] Routine Lab 01/20/18 16:41 Ordered Acetaminophen [Tylenol] Med 01/20/18 16:37 Ordered 650 mg PO Q4H PRN Docusate Sodium [Colace] Med 01/20/18 16:37 Ordered 100 mg PO BID PRN Ondansetron [Zofran] Med 01/20/18 16:37 Ordered 4 mg IVPUSH Q4H PRN Sodium Chloride 0.9% [Normal Saline] 1,000 ml Med 01/20/18 16:45 Ordered IV ASDIRECTED Sodium Chloride 0.9% [Saline Flush] Med 01/20/18 16:37 Ordered 2.5 ml FLUSH ASDIRECTED PRN Vancomycin Pharmacy to Dose [Pharmacy to Dose - Med 01/20/18 16:45 Ordered Vancomycin] 1 dose .XX ASDIRECTED oxyCODONE Med 01/20/18 16:37 Ordered 5 mg PO Q4H PRN Blood Culture x2 Reflex Set [OM.PC] Stat Oth 01/20/18 16:37 Ordered Saline Lock Insert [OM.PC] Routine Oth 01/20/18 16:37 Ordered Sequential Compression Device [OM.PC] Per Unit Routine Oth 01/20/18 16:38 Ordered Transfuse Red Blood Cells [COMM] Routine Oth 01/20/18 16:40 Ordered Resuscitation Status Routine Resus Stat 01/20/18 16:37 Ordered Medication Orders Acetaminophen (Tylenol) 650 mg PO Q4H PRN PRN Reason: Pain (mild 1-3) Docusate Sodium (Colace) 100 mg PO BID PRN PRN Reason: Constipation Sodium Chloride (Normal Saline) 1,000 mls @ 100 mls/hr IV ASDIRECTED MICHAEL Ondansetron HCl (Zofran) 4 mg IVPUSH Q4H PRN PRN Reason: Pain Oxycodone HCl (Oxycodone) 5 mg PO Q4H PRN PRN Reason: Pain (moderate 4-6) Sodium Chloride (Saline Flush) 2.5 ml FLUSH ASDIRECTED PRN PRN Reason: Keep Vein Open Vancomycin HCl (Pharmacy To Dose - Vancomycin) [address] [facility] Assessment/Plan Comment:: This 32 year old male admitted with leukocytosis, necrotic 5th digit of R foot, acute on chronic kidney injury 1. Diabetic foot ulcer: Necrotic 5th digit of R foot, needing amputation. Likely source of leukocytosis. Will obtain BC. No other source of infection noted. Start Vancomycin IV. MRI of R foot due to increased pain to forefoot and swelling. VS stable. No signs of sepsis. Keep R leg elevated to help with edema. 2. Anemia: Hgb 7.9, symptomatic with dizziness, dyspnea and lightheadedness with ambulation. Will transfuse 2 units tonight and monitor in am. 3. Acute on chronic kidney injury: Will monitor closely. IVFs NS 100 overnight and recheck in am. 4. HTN: Stable, continue home medications. Will hold Lasix, Spironolactone and lisinopril for now due to elevate BUN and Cr. Monitor. 5. Dm type 1: Continue Novolog SSI with carb ratio of 15:1 with meals. He reports he takes Lantus 42 units subcut nightly, will continue this. A1c elevated more since last admission. reports being compliant, but needing to increase insulin dosing recently. 6. GERD and hx GI bleeding: No signs of acute bleed currently. No pharmacologic VTE agents due to history. Continue PPI. VTE prophylaxis: SCDs only
[2018-01-20] MEDS: Insulin Aspart 100 Units/ML 3 ML Pen SUBCUT SCH ×2 (18:22→18:23)
[2018-01-20] MEDS ORDERED: Insulin Glargine,Human Rec. Analog 100 Units/ML 3 ML Pen SUBCUT SCH (21:00)
[2018-01-21] MEDS ORDERED: hydrALAZINE 20 MG/ML SDV IVPUSH ONE (01:34)
[2018-01-21] MEDS: amLODIPine 5 MG Tab PO SCH ×2 (01:53→08:01)
[2018-01-21] MEDS: oxyCODONE 5 MG Tab PO PRN ×3 (02:00→21:45)
[2018-01-21] MEDS: Insulin Aspart 100 Units/ML 3 ML Pen SUBCUT SCH ×3 (07:19→12:11)
--- NOTE | 2018-01-21 07:19 | PCM.PN ---
- General Info Date of Service: 01/21/18 Admission Dx/Problem (Free Text): Admission Diagnosis/Problem Admission Diagnosis/Problem Leukocytosis Subjective Update: Feeling better today. Pain to foot is about 5-6/10, controlled well with Oxycodone. No chest pain or SOB. No abdominal pain, N/V or heratburn. Eager to speak with Dr English. Functional Status: Reports: Pain Controlled, Tolerating Diet, Ambulating, Urinating - Review of Systems General: Reports: No Symptoms. Denies: Fever, Weakness, Fatigue, Malaise HEENT: Reports: No Symptoms. Denies: Headaches, Sore Throat, Visual Changes Pulmonary: Reports: No Symptoms. Denies: Shortness of Breath Cardiovascular: Reports: No Symptoms. Denies: Chest Pain Gastrointestinal: Reports: No Symptoms. Denies: Abdominal Pain, Nausea, Vomiting Genitourinary: Reports: No Symptoms Musculoskeletal: Reports: No Symptoms Skin: Reports: No Symptoms Neurological: Reports: No Symptoms Psychiatric: Reports: No Symptoms - Patient Data Vitals - Most Recent: Last Vital Signs Temp 99.6 F 01/21/18 03:42 Pulse 93 01/21/18 03:42 Resp 14 01/21/18 03:42 BP 134/70 01/21/18 03:42 Pulse Ox 93 L 01/21/18 03:42 Weight - Most Recent: 83.053 kg I&O - Last 24 Hours: Intake & Output 01/20/18 01/21/18 01/21/18 22:59 06:59 14:59 Intake Total 127 1787 Balance 127 1787 Lab Results Last 24 Hours: Laboratory Results - last 24 hr 01/20/18 01/20/18 01/20/18 Range/Units 17:06 17:06 17:17 WBC (4.0-11.0) K/uL RBC (4.50-5.90) M/uL Hgb (13.0-17.0) g/dL Hct (38.0-50.0) % MCV (80.0-98.0) fL MCH (27.0-32.0) pg MCHC (31.0-37.0) g/dL RDW Std Deviation (28.0-62.0) fl RDW Coeff of Dania (11.0-15.0) % Plt Count (150-400) K/uL MPV (7.40-12.00) fL Neut % (Auto) (48.0-80.0) % Lymph % (Auto) (16.0-40.0) % [place] % (Auto) (0.0-15.0) % Eos % (Auto) (0.0-7.0) % Baso % (Auto) (0.0-1.5) % Neut # (Auto) (1.4-5.7) K/uL Lymph # (Auto) (0.6-2.4) K/uL [place] # (Auto) (0.0-0.8) K/uL Eos # (Auto) (0.0-0.7) K/uL Baso # (Auto) (0.0-0.1) K/uL Nucleated RBC % /100WBC Nucleated RBCs # K/uL Sodium 131 L (136-148) mmol/L Potassium 5.4 H (3.5-5.1) mmol/L Chloride 97 L (98-107) mmol/L Carbon Dioxide 24.7 (21.0-32.0) mmol/L BUN 54 H (7.0-18.0) mg/dL Creatinine 2.5 H (0.8-1.3) mg/dL Est Cr Clr Drug Dosing 42.81 mL/min Estimated GFR (MDRD) 30.3 ml/min Glucose 280 H (74-106) mg/dL POC Glucose 277 H (60-110) mg/dL Calcium 8.8 (8.5-10.1) mg/dL Blood Type O POSITIVE Antibody Screen NEGATIVE Cold Antibody Screen POSITIVE Crossmatch See Detail 01/20/18 01/21/18 01/21/18 Range/Units 21:27 01:49 04:28 WBC (4.0-11.0) K/uL RBC (4.50-5.90) M/uL Hgb (13.0-17.0) g/dL Hct (38.0-50.0) % MCV (80.0-98.0) fL MCH (27.0-32.0) pg MCHC (31.0-37.0) g/dL RDW Std Deviation (28.0-62.0) fl RDW Coeff of Dania (11.0-15.0) % Plt Count (150-400) K/uL MPV (7.40-12.00) fL Neut % (Auto) (48.0-80.0) % Lymph % (Auto) (16.0-40.0) % [place] % (Auto) (0.0-15.0) % Eos % (Auto) (0.0-7.0) % Baso % (Auto) (0.0-1.5) % Neut # (Auto) (1.4-5.7) K/uL Lymph # (Auto) (0.6-2.4) K/uL [place] # (Auto) (0.0-0.8) K/uL Eos # (Auto) (0.0-0.7) K/uL Baso # (Auto) (0.0-0.1) K/uL Nucleated RBC % /100WBC Nucleated RBCs # K/uL Sodium (136-148) mmol/L Potassium (3.5-5.1) mmol/L Chloride (98-107) mmol/L Carbon Dioxide (21.0-32.0) mmol/L BUN (7.0-18.0) mg/dL Creatinine (0.8-1.3) mg/dL Est Cr Clr Drug Dosing mL/min Estimated GFR (MDRD) ml/min Glucose (74-106) mg/dL POC Glucose 324 H 105 41 L (60-110) mg/dL Calcium (8.5-10.1) mg/dL Blood Type Antibody Screen Cold Antibody Screen Crossmatch 01/21/18 01/21/18 Range/Units 05:20 05:20 WBC 16.62 H (4.0-11.0) K/uL RBC 3.98 L (4.50-5.90) M/uL Hgb 8.6 L (13.0-17.0) g/dL Hct 26.9 L (38.0-50.0) % MCV 67.6 L (80.0-98.0) fL MCH 21.6 L (27.0-32.0) pg MCHC 32.0 (31.0-37.0) g/dL RDW Std Deviation 42.5 (28.0-62.0) fl RDW Coeff of Dania 18 H (11.0-15.0) % Plt Count 443 H (150-400) K/uL MPV 9.50 (7.40-12.00) fL Neut % (Auto) 75.3 (48.0-80.0) % Lymph % (Auto) 15.1 L (16.0-40.0) % [place] % (Auto) 7.5 (0.0-15.0) % Eos % (Auto) 1.9 (0.0-7.0) % Baso % (Auto) 0.2 (0.0-1.5) % Neut # (Auto) 12.5 H (1.4-5.7) K/uL Lymph # (Auto) 2.5 H (0.6-2.4) K/uL [place] # (Auto) 1.3 H (0.0-0.8) K/uL Eos # (Auto) 0.3 (0.0-0.7) K/uL Baso # (Auto) 0.0 (0.0-0.1) K/uL Nucleated RBC % 0.0 /100WBC Nucleated RBCs # 0 K/uL Sodium 136 (136-148) mmol/L Potassium 4.7 (3.5-5.1) mmol/L Chloride 102 (98-107) mmol/L Carbon Dioxide 23.3 (21.0-32.0) mmol/L BUN 45 H (7.0-18.0) mg/dL Creatinine 2.0 H (0.8-1.3) mg/dL Est Cr Clr Drug Dosing 53.52 mL/min Estimated GFR (MDRD) 39.2 ml/min Glucose 120 H (74-106) mg/dL POC Glucose (60-110) mg/dL Calcium 8.3 L (8.5-10.1) mg/dL Blood Type Antibody Screen Cold Antibody Screen Crossmatch Med Orders - Current: Current Medications Acetaminophen (Tylenol) 650 mg PO Q4H PRN PRN Reason: Pain (mild 1-3) Amlodipine Besylate (Norvasc) 10 mg PO DAILY [facility] Last Admin: 01/21/18 01:53 Dose: 10 mg Docusate Sodium (Colace) 100 mg PO BID PRN PRN Reason: Constipation Doxazosin Mesylate (Cardura) 2 mg PO DAILY [facility] Ferrous Sulfate (Ferrous Sulfate) 325 mg PO TIDMEALS [facility] Sodium Chloride (Normal Saline) 1,000 mls @ 100 mls/hr IV ASDIRECTED [facility] Last Admin: 01/20/18 17:33 Dose: 100 mls/hr Vancomycin HCl 1,250 mg/ (Sodium Chloride) 250 mls @ 166.667 mls/hr IV Q12H [facility] Last Admin: 01/21/18 05:29 Dose: 166.667 mls/hr Insulin Aspart (Novolog) 0 unit SUBCUT TIDAC [facility]; Protocol Last Admin: 01/20/18 18:22 Dose: 11 units Insulin Aspart (Novolog) 0 unit SUBCUT TIDAC [facility] Last Admin: 01/20/18 18:23 Dose: 3 units Insulin Glargine (Lantus Solostar) 42 units SUBCUT BEDTIME [facility] Last Admin: 01/20/18 21:35 Dose: 42 units Ondansetron HCl (Zofran) 4 mg IVPUSH Q4H PRN PRN Reason: Pain Oxycodone HCl (Oxycodone) 5 mg PO Q4H PRN PRN Reason: Pain (moderate 4-6) Last Admin: 01/21/18 02:00 Dose: 5 mg Pantoprazole Sodium (Protonix) 40 mg PO ACBREAKFAST [facility] Sodium Chloride (Saline Flush) 2.5 ml FLUSH ASDIRECTED PRN PRN Reason: Keep Vein Open Vancomycin HCl (Pharmacy To Dose - Vancomycin) 1 dose .XX ASDIRECTED [facility] Discontinued Medications Amlodipine Besylate (Norvasc) 10 mg PO DAILY [facility] Hydralazine HCl (Apresoline) 10 mg IVPUSH ONETIME ONE Stop: 01/21/18 01:35 Last Admin: 01/21/18 01:52 Dose: 10 mg - Exam Quality Assessment: DVT Prophylaxis (SCDs only) General: Alert, Oriented, Cooperative, No Acute Distress Neck: Supple Lungs: Clear to Auscultation, Normal Respiratory Effort Cardiovascular: Regular Rate, Regular Rhythm GI/Abdominal Exam: Normal Bowel Sounds, Soft, Non-Tender, No Organomegaly, No Distention, No Abnormal Bruit, No Mass, Pelvis Stable Extremities: Pedal Edema (1-2+ pitting edema, slightly improved. encouraged to keep leg elevated. ) Wound/Incisions: No Drainage, Other (necrosis and gangrene noted to 5th digit of R foot. foul smelling. No obvious cellulitis surrounding on the foot. ). No : Erythema Neurological: No New Focal Deficit Psy/Mental Status: Alert, Normal Affect, Normal Mood - Problem List & Annotations (1) Diabetic foot ulcer SNOMED Code(s): 609382901 Code(s): E11.621 - TYPE 2 DIABETES MELLITUS WITH FOOT ULCER; L97.509 - NON- PRESSURE CHRONIC ULCER OTH PRT UNSP FOOT W UNSP SEVERITY Status: Acute Current Visit: No Qualifiers: Diabetic foot ulcer location: toe Diabetes mellitus type: type 1 Laterality: right Non-pressure ulcer stage: with necrosis of muscle Qualified Code(s): E10.621 - Type 1 diabetes mellitus with foot ulcer; L97.513 - Non-pressure chronic ulcer of other part of right foot with necrosis of muscle (2) History of GI bleed SNOMED Code(s): 477820097 Code(s): Z87.19 - PERSONAL HISTORY OF OTHER DISEASES OF THE DIGESTIVE SYSTEM Status: Chronic Current Visit: Yes (3) Diabetic gastroparesis SNOMED Code(s): 002044080 Code(s): E11.43 - TYPE 2 DIABETES W DIABETIC AUTONOMIC (POLY)NEUROPATHY; K31.84 - GASTROPARESIS Status: Chronic Current Visit: No (4) Chronic renal insufficiency SNOMED Code(s): 462856553 Code(s): N18.9 - CHRONIC KIDNEY DISEASE, UNSPECIFIED Status: Chronic Current Visit: No (5) Diabetes mellitus type I SNOMED Code(s): 44350718 Code(s): E10.9 - TYPE 1 DIABETES MELLITUS WITHOUT COMPLICATIONS Status: Chronic Current Visit: No Qualifiers: Diabetes mellitus complication status: with kidney complications Diabetes mellitus complication detail: with chronic kidney disease (6) Hypertension SNOMED Code(s): 79763181 Code(s): I10 - ESSENTIAL (PRIMARY) HYPERTENSION Status: Chronic Current Visit: No Qualifiers: Hypertension type: essential hypertension Qualified Code(s): I10 - Essential (primary) hypertension (7) Hx of gastroesophageal reflux (GERD) SNOMED Code(s): 67564147687877 Code(s): Z87.19 - PERSONAL HISTORY OF OTHER DISEASES OF THE DIGESTIVE SYSTEM Status: Chronic Current Visit: Yes (8) Hx MRSA infection SNOMED Code(s): 397055636, 006173227 Code(s): Z86.14 - PERSONAL HISTORY OF METHICILLIN RESIS STAPH INFECTION Status: Chronic Current Visit: Yes (9) Anemia SNOMED Code(s): 717983813 Code(s): D64.9 - ANEMIA, UNSPECIFIED Status: Chronic Current Visit: No Qualifiers: Anemia type: due to chronic kidney disease - Problem List Review Problem List Initiated/Reviewed/Updated: Yes - My Orders Last 24 Hours: My Active Orders 01/20/18 16:37 Patient Status [ADT] Routine Oxygen Therapy [RC] PRN Up ad Ruth [RC] ASDIRECTED VTE/DVT Education [RC] PER UNIT ROUTINE Vital Signs [RC] Q4H Consult to Physician [CONS] Routine Acetaminophen [Tylenol] 650 mg PO Q4H PRN Docusate Sodium [Colace] 100 mg PO BID PRN Ondansetron [Zofran] 4 mg IVPUSH Q4H PRN Sodium Chloride 0.9% [Saline Flush] 2.5 ml FLUSH ASDIRECTED PRN oxyCODONE 5 mg PO Q4H PRN Blood Culture x2 Reflex Set [OM.PC] Stat Saline Lock Insert [OM.PC] Routine Resuscitation Status Routine 01/20/18 16:38 Intake and Output [RC] QSHIFT Sequential Compression Device [OM.PC] Per Unit Routine 01/20/18 16:40 Notify Provider Consults [RC] ASDIRECTED Transfuse Red Blood Cells [COMM] Routine 01/20/18 16:41 Verify Patient Consent Obtain [RC] ASDIRECTED 01/20/18 16:45 Sodium Chloride 0.9% [Normal Saline] 1,000 ml IV ASDIRECTED Vancomycin Pharmacy to Dose [Pharmacy to Dose - Vancomycin] 1 dose .XX ASDIRECTED 01/20/18 16:49 Blood Glucose Check, Bedside [RC] TIDAC 01/20/18 17:00 Insulin Aspart [NovoLOG] See Dose Instructions SUBCUT TIDAC Insulin Aspart [NovoLOG] See Protocol SUBCUT TIDAC 01/20/18 17:03 Communication Order [RC] ROUTINE 01/20/18 17:06 CULTURE BLOOD [BC] Stat 01/20/18 17:07 Wound Care [RC] DAILY 01/20/18 17:15 Foot wo Cont Rt [MR] Routine Vancomycin 1,250 mg Sodium Chloride 0.9% [Normal Saline] 250 ml IV Q12H 01/20/18 17:17 CULTURE BLOOD [BC] Stat 01/20/18 18:07 Elevate Extremity [RC] BID 01/20/18 21:00 Insulin Glarg,Human.Rec.Analog [LantUS Solostar] 42 units SUBCUT BEDTIME 01/20/18 Dinner [employer] [place] [employer] Diet [DIET] 01/21/18 07:30 Pantoprazole [ProTONIX] 40 mg PO ACBREAKFAST 01/21/18 08:00 Ferrous Sulfate 325 mg PO TIDMEALS 01/21/18 09:00 Doxazosin [Cardura] 2 mg PO DAILY 01/22/18 04:15 VANCOMYCIN TROUGH [CHEM] Routine 01/22/18 05:11 BASIC METABOLIC PANEL,BMP [CHEM] AM CBC WITH AUTO DIFF [HEME] AM 01/23/18 05:11 BASIC METABOLIC PANEL,BMP [CHEM] AM CBC WITH AUTO DIFF [HEME] AM - Plan Plan:: This 32 year old male admitted with leukocytosis, necrotic 5th digit of R foot, acute on chronic kidney injury 1. Diabetic foot ulcer: Necrotic 5th digit of R foot, needing amputation. Preliminary report of MRI reveales "Diffuse foot soft tissue edema may reflect cellulitis. No soft tissue abscess identified. Punctate foci of decreased signal within the soft tissues of the 5th toe may represent tiny gas bubbles due to gangrene. Diminished T1 signal within the congenitally fused middle and distal phalanges of the 5th toe is suspicious for osteomyelitis. Less marked T1 diminished signal in the proximal phalanx of the 5th toe may represent additional osteomyelitis. Mild marrow edema in the midfoot bones is unchanged compared to the previous exam and may reflect neuroarthropathy." Leukocytosis improving, 16,000 today. BC pending. Continue Vancomycin IV. VS stable. Keep R leg elevated to help with edema. Daily dressing changes. Dr English is consulted and will see patient today., Waqas is well known to Dr English. Will consult anesthesia to evaluate for surgery. Per Hospitalist team, he would be an appropriate surgical risk for amputation of 5th digit of R foot. 2. Anemia: Hgb 8.6 after 2 units, symptoms improved. Will give 1 more unit to prepare for surgery in coming days. 3. Acute on chronic kidney injury: Improving. Stop IVFs, holding Torsemide, Spironolactone and Enalapril due to increase in renal function. Slowly restart when back to baseline. 4. HTN: Stable, continue home medications. With some elevation to 160/90s. Continue Cardura and Norvasc. Monitor with holding the above medications due to OTILIA. 5. Dm type 1: Did have hypoglycemia this morning, 41. Reports his diet is more restricted here and needs more gluten free options for evening snacks, he didn' t get much last night. Continue Novolog SSI with carb ratio of 10:1 with meals. He reports he takes Lantus 42 units subcut nightly, will decrease this due to hypoglycemia. Discussed with Waqas we want to limit lows and with diet restrictions we should decrease Lantus and monitor. So will decrease Lantus during stay to 35 units nightly and monitor. 6. GERD and hx GI bleeding: No signs of acute bleed currently. No pharmacologic VTE agents due to history. Continue PPI. VTE prophylaxis: SCDs only Dispo; 3-4 days pending improvement and surgical intervention.
[2018-01-21] MEDS: Doxazosin 2 MG Tab PO SCH (08:00)
[2018-01-21] MEDS: Ferrous Sulfate 325 MG Tab PO SCH ×3 (08:01→17:31)
[2018-01-21] MEDS: Pantoprazole 40 MG Tab.CR PO SCH (08:01)
[2018-01-21] MEDS ORDERED: amLODIPine 5 MG Tab PO SCH (09:00)
[2018-01-21] MEDS ORDERED: Insulin Aspart 100 Units/ML 3 ML Pen SUBCUT SCH (11:30)
--- NOTE | 2018-01-21 16:45 | PCM.SN ---
- Free Text/Narrative Note: Hypoglycemia noted throughout the day. Will hold Lantus this evening and stop carb counting ratios. Keep only SSI as needed for blood sugars. Hypoglycemia likely secondary to dietary control no in the hospital.
--- NOTE | 2018-01-21 17:31 | MR ---
EXAM DATE: 01/20/18 PATIENT'S AGE: 32 Patient: DAWOOD DUCKWORTH Facility: [place], [place] : 1985 Study: MRI Extremity Right [id number]/9/2018 8:27:55 PM Ordering Physician: Rick Canales Final Report: HISTORY: Gangrenous 5th digit of the right foot. TECHNIQUE: Axial, sagittal and coronal T1, proton density, proton density fat-sat and STIR images were obtained of the right foot without contrast administration. COMPARISON: 10/07/2017. FINDINGS: There is an apparent soft tissue defect involving the 5th digit of the right foot. This could relate either to a true soft tissue defect or complete signal loss in the setting of gangrenous tissue. There is infiltration of the soft tissues of the 5th digit compatible with cellulitis. No well-defined fluid collection. There are small foci of low signal involving the phalanges of the 5th digit which may indicate the presence of intraosseous gas and gas gangrene. There is loss of normal fatty marrow signal within the congenitally fused middle and distal phalanges of the fifth digit and suspicious for osteomyelitis. Lesser degree of fatty marrow signal loss involving a portion of the proximal phalanx, non-specific. Mild marrow edema within the 5th metatarsal head is likely reactive. Similarly, mild marrow edema within the distal 4th metatarsal bone and 4th digit phalanges is likely reactive as there is preservation of fatty marrow signal within those bones on the T1 weighted images. - Bone marrow edema is present within midfoot involving the cuneiform bones, cuboid bone and navicular bone. This may relate to stress-related change. Osteomyelitis is considered unlikely in this location. This represents a similar finding as compared to the prior MRI. No discrete fracture of those bones. The calcaneal marrow edema seen on the prior MRI has improved. - Degenerative changes of the 1st metatarsophalangeal joint with subchondral cystic change involving the 1st metatarsal head as before likely indicating grade 4 cartilage loss. - Extensive soft tissue edema. There is interstitial muscle edema involving the foot musculature which may relate to edema or subacute denervation changes. No significant tendon tearing. IMPRESSION: 1. Apparent soft tissue defect involving the 5th digit of the right foot which could relate either to a true defect or complete signal loss in the setting of gangrene. There are foci of low signal involving the phalanges of the 5th digit suspicious for intraosseous gas. This could be correlated radiographically. There is also loss of normal T1 fatty marrow signal within the congenitally fused middle and distal phalanges of the 5th digit suspicious for osteomyelitis. Mild loss of normal fatty marrow signal within the proximal phalanx which is less specific though could also indicate osteomyelitis. No localized soft tissue fluid collection. 2. Reactive marrow edema is likely present within the 5th metatarsal head, 4th metatarsal head and 4th digit phalanges. 3. Bone marrow edema within the midfoot as before may relate to stress-related change. There is no acute fracture. Osteomyelitis of those bones is considered unlikely. 4. Generalized soft tissue edema. 5. Degenerative changes of the 1st metatarsophalangeal joint as before. Dictated by Roberto Harris MD @ Jan 21 2018 8:02AM (Electronic Signature) Report Signed by Proxy. INOCENTE
--- NOTE | 2018-01-21 18:59 | PCM.CONS ---
H&P History of Present Illness - General Date of Service: 01/21/18 Admit Problem/Dx: Admission Diagnosis/Problem Admission Diagnosis/Problem Leukocytosis with necrotic fifth toe right foot Source of Information: Patient History Limitations: Reports: No Limitations - History of Present Illness Initial Comments - Free Text/Narative: Patient is well known to me and after an absence following missed appointment with me he returned several weeks ago and I have been treating his right foot fifth toe ulcer. The toe has now become necrotic, with gangrenous changes. I discussed getting him cleared for surgery to amputate the toe with Dr. Infante, his PCP, last week, and we agreed that his labs were too unstable to proceed with surgery at that time. Yesterday, Dr. Infante called me to tell me that it was necessary to admit patient to hospital due to being metabolically unstable. I agreed and we agreed I would wait for improved labs before proceeding with surgery. Onset of Symptoms: Reports: Gradual Severity: Severe Improves with: Reports: None Right foot Pain Score (Numeric/FACES): 7 - Related Data Allergies/Adverse Reactions: Allergies Allergy/AdvReac Type Severity Reaction Status Date / Time shrimp Allergy Severe Other Verified 12/03/17 23:23 iodine Allergy Unknown Anaphylactic Verified 12/03/17 23:23 Shock Penicillins Allergy Unknown Anaphylactic Verified 12/03/17 23:23 Shock gluten Allergy Unknown Muscle Uncoded 12/03/17 23:23 Aches Home Medications: Home Meds Omeprazole Magnesium [Prilosec Otc] 40 mg PO DAILY 07/15/17 [History] Doxazosin [Cardura] 2 mg PO DAILY 09/25/17 [History] Enalapril [Vasotec] 40 mg PO DAILY 09/25/17 [History] Insulin Glargine,Hum.Rec.Anlog [Toujeo Solostar] 45 unit SQ DAILY 09/25/17 [ History] Spironolactone [Aldactone] 25 mg PO DAILY 09/25/17 [History] Torsemide 20 mg PO DAILY 09/25/17 [History] amLODIPine Besylate [Amlodipine Besylate] 10 mg PO DAILY 09/25/17 [History] Insulin Aspart [NovoLOG] 0 unit SUBCUT ASDIRECTED 10/07/17 [History] Ferrous Sulfate 324 mg PO DAILY 01/20/18 [History] Silver Sulfadiazine [Ssd] 20 gm TP DAILY 01/20/18 [History] Past Medical History - Past Health History Medical/Surgical History: Denies Medical/Surgical History HEENT History: Reports: Impaired Vision Other HEENT History: blind right eye Cardiovascular History: Reports: Hypertension Respiratory History: Reports: None Gastrointestinal History: Reports: Gastritis, GERD, Hiatal Hernia Other Gastrointestinal History: h/o gastric ulcers, h/o hiatal hernia Genitourinary History: Reports: Chronic Renal Insuffiency, Diabetic Nephropathy Musculoskeletal History: Reports: None Neurological History: Reports: Neuropathy, Peripheral Psychiatric History: Reports: Anxiety Endocrine/Metabolic History: Reports: Diabetes, Type I Hematologic History: Reports: Anemia Immunologic History: Reports: None Oncologic (Cancer) History: Reports: None Dermatologic History: Reports: Other (See Below) Other Dermatologic History: diabetic foot ulcers - Infectious Disease History Infectious Disease History: Reports: Chicken Pox Other Infectious Disease History: 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 - Past Surgical History Head Surgeries/Procedures: Reports: None HEENT Surgical History: Reports: None Cardiovascular Surgical History: Reports: None Respiratory Surgical History: Reports: None GI Surgical History: Reports: EGD Male Surgical History: Reports: None Endocrine Surgical History: Reports: None Dermatological Surgical History: Reports: None Social & Family History - Family History Family Medical History: Noncontributory Cardiac: Reports: High Cholesterol, Hypertension OBGYN: Reports: Neurological: Reports: None - Tobacco Use Smoking Status *Q: Former Smoker Years of Tobacco use: 10 Second Hand Smoke Exposure: No - Caffeine Use Caffeine Use: Reports: Coffee - Recreational Drug Use Recreational Drug Use: No Recreational Drug Type: Reports: Marijuana/Hashish - Living Situation & Occupation Living situation: Reports: Single Occupation: Employed (Currently unemployed.) H&P Review of Systems - Review of Systems: Review Of Systems: ROS reveals no pertinent complaints other than HPI. Exam - Exam Exam: See Below - Vital Signs Vital Signs: Last Vital Signs Temp 37.0 C 01/21/18 15:06 Pulse 99 01/21/18 15:06 Resp 18 01/21/18 15:06 BP 155/83 H 01/21/18 15:06 Pulse Ox 96 01/21/18 16:37 Weight: 83.053 kg - Exam Extremities: Other (necrotic gangrenous fifth toe, dry) Peripheral Pulses: 2+: Posterior Tibial (L), Posterior Tibial (R), Dorsalis Pedis (L), Dorsalis Pedis (R) Skin: Warm, Dry, Intact - Patient Data Lab Results Last 24 hrs: Laboratory Results - last 24 hr 01/20/18 01/20/18 01/20/18 Range/Units 17:06 17:06 21:27 WBC (4.0-11.0) K/uL RBC (4.50-5.90) M/uL Hgb (13.0-17.0) g/dL Hct (38.0-50.0) % MCV (80.0-98.0) fL MCH (27.0-32.0) pg MCHC (31.0-37.0) g/dL RDW Std Deviation (28.0-62.0) fl RDW Coeff of Dania (11.0-15.0) % Plt Count (150-400) K/uL MPV (7.40-12.00) fL Neut % (Auto) (48.0-80.0) % Lymph % (Auto) (16.0-40.0) % Addison % (Auto) (0.0-15.0) % Eos % (Auto) (0.0-7.0) % Baso % (Auto) (0.0-1.5) % Neut # (Auto) (1.4-5.7) K/uL Lymph # (Auto) (0.6-2.4) K/uL Addison # (Auto) (0.0-0.8) K/uL Eos # (Auto) (0.0-0.7) K/uL Baso # (Auto) (0.0-0.1) K/uL Nucleated RBC % /100WBC Nucleated RBCs # K/uL Sodium 131 L (136-148) mmol/L Potassium 5.4 H (3.5-5.1) mmol/L Chloride 97 L (98-107) mmol/L Carbon Dioxide 24.7 (21.0-32.0) mmol/L BUN 54 H (7.0-18.0) mg/dL Creatinine 2.5 H (0.8-1.3) mg/dL Est Cr Clr Drug Dosing 42.81 mL/min Estimated GFR (MDRD) 30.3 ml/min Glucose 280 H (74-106) mg/dL POC Glucose 324 H (60-110) mg/dL Calcium 8.8 (8.5-10.1) mg/dL Blood Type O POSITIVE Antibody Screen NEGATIVE Cold Antibody Screen POSITIVE Crossmatch See Detail 01/21/18 01/21/18 01/21/18 Range/Units 01:49 04:28 05:20 WBC 16.62 H (4.0-11.0) K/uL RBC 3.98 L (4.50-5.90) M/uL Hgb 8.6 L (13.0-17.0) g/dL Hct 26.9 L (38.0-50.0) % MCV 67.6 L (80.0-98.0) fL MCH 21.6 L (27.0-32.0) pg MCHC 32.0 (31.0-37.0) g/dL RDW Std Deviation 42.5 (28.0-62.0) fl RDW Coeff of Dania 18 H (11.0-15.0) % Plt Count 443 H (150-400) K/uL MPV 9.50 (7.40-12.00) fL Neut % (Auto) 75.3 (48.0-80.0) % Lymph % (Auto) 15.1 L (16.0-40.0) % Addison % (Auto) 7.5 (0.0-15.0) % Eos % (Auto) 1.9 (0.0-7.0) % Baso % (Auto) 0.2 (0.0-1.5) % Neut # (Auto) 12.5 H (1.4-5.7) K/uL Lymph # (Auto) 2.5 H (0.6-2.4) K/uL Addison # (Auto) 1.3 H (0.0-0.8) K/uL Eos # (Auto) 0.3 (0.0-0.7) K/uL Baso # (Auto) 0.0 (0.0-0.1) K/uL Nucleated RBC % 0.0 /100WBC Nucleated RBCs # 0 K/uL Sodium (136-148) mmol/L Potassium (3.5-5.1) mmol/L Chloride (98-107) mmol/L Carbon Dioxide (21.0-32.0) mmol/L BUN (7.0-18.0) mg/dL Creatinine (0.8-1.3) mg/dL Est Cr Clr Drug Dosing mL/min Estimated GFR (MDRD) ml/min Glucose (74-106) mg/dL POC Glucose 105 41 L (60-110) mg/dL Calcium (8.5-10.1) mg/dL Blood Type Antibody Screen Cold Antibody Screen Crossmatch 01/21/18 01/21/18 01/21/18 Range/Units 05:20 06:22 12:00 WBC (4.0-11.0) K/uL RBC (4.50-5.90) M/uL Hgb (13.0-17.0) g/dL Hct (38.0-50.0) % MCV (80.0-98.0) fL MCH (27.0-32.0) pg MCHC (31.0-37.0) g/dL RDW Std Deviation (28.0-62.0) fl RDW Coeff of Dania (11.0-15.0) % Plt Count (150-400) K/uL MPV (7.40-12.00) fL Neut % (Auto) (48.0-80.0) % Lymph % (Auto) (16.0-40.0) % Addison % (Auto) (0.0-15.0) % Eos % (Auto) (0.0-7.0) % Baso % (Auto) (0.0-1.5) % Neut # (Auto) (1.4-5.7) K/uL Lymph # (Auto) (0.6-2.4) K/uL Addison # (Auto) (0.0-0.8) K/uL Eos # (Auto) (0.0-0.7) K/uL Baso # (Auto) (0.0-0.1) K/uL Nucleated RBC % /100WBC Nucleated RBCs # K/uL Sodium 136 (136-148) mmol/L Potassium 4.7 (3.5-5.1) mmol/L Chloride 102 (98-107) mmol/L Carbon Dioxide 23.3 (21.0-32.0) mmol/L BUN 45 H (7.0-18.0) mg/dL Creatinine 2.0 H (0.8-1.3) mg/dL Est Cr Clr Drug Dosing 53.52 mL/min Estimated GFR (MDRD) 39.2 ml/min Glucose 120 H (74-106) mg/dL POC Glucose 109 47 L (60-110) mg/dL Calcium 8.3 L (8.5-10.1) mg/dL Blood Type Antibody Screen Cold Antibody Screen Crossmatch 01/21/18 01/21/18 01/21/18 Range/Units 14:16 16:33 18:46 WBC (4.0-11.0) K/uL RBC (4.50-5.90) M/uL Hgb (13.0-17.0) g/dL Hct (38.0-50.0) % MCV (80.0-98.0) fL MCH (27.0-32.0) pg MCHC (31.0-37.0) g/dL RDW Std Deviation (28.0-62.0) fl RDW Coeff of Dania (11.0-15.0) % Plt Count (150-400) K/uL MPV (7.40-12.00) fL Neut % (Auto) (48.0-80.0) % Lymph % (Auto) (16.0-40.0) % Addison % (Auto) (0.0-15.0) % Eos % (Auto) (0.0-7.0) % Baso % (Auto) (0.0-1.5) % Neut # (Auto) (1.4-5.7) K/uL Lymph # (Auto) (0.6-2.4) K/uL Addison # (Auto) (0.0-0.8) K/uL Eos # (Auto) (0.0-0.7) K/uL Baso # (Auto) (0.0-0.1) K/uL Nucleated RBC % /100WBC Nucleated RBCs # K/uL Sodium (136-148) mmol/L Potassium (3.5-5.1) mmol/L Chloride (98-107) mmol/L Carbon Dioxide (21.0-32.0) mmol/L BUN (7.0-18.0) mg/dL Creatinine (0.8-1.3) mg/dL Est Cr Clr Drug Dosing mL/min Estimated GFR (MDRD) ml/min Glucose (74-106) mg/dL POC Glucose 138 H 49 L 54 L (60-110) mg/dL Calcium (8.5-10.1) mg/dL Blood Type Antibody Screen Cold Antibody Screen Crossmatch Result Diagrams: 01/21/18 05:20 01/21/18 05:20 Peter Results Last 24 hrs: Microbiology 01/20/18 17:17 Aerobic Blood Culture - Preliminary Blood - Venous - Lab Draw NO GROWTH AFTER 1 DAY Anaerobic Blood Culture - Preliminary NO GROWTH AFTER 1 DAY 01/20/18 17:06 Aerobic Blood Culture - Preliminary Blood - Venous NO GROWTH AFTER 1 DAY Anaerobic Blood Culture - Preliminary NO GROWTH AFTER 1 DAY Consult PN Assessment/Plan Procedures: Procedures AGENT NOS ASSAY W/OPTIC (11/07/15) ASSAY OF AMMONIA (08/04/17) ASSAY OF AMYLASE (08/04/17) ASSAY OF FERRITIN (09/25/17) ASSAY OF FREE THYROXINE (12/16/17) ASSAY OF IRON (12/16/17) ASSAY OF LACTIC ACID (08/04/17) ASSAY OF LIPASE (08/04/17) ASSAY OF MAGNESIUM (08/19/16) ASSAY OF NATRIURETIC PEPTIDE (08/04/17) ASSAY OF PHOSPHORUS (11/11/16) ASSAY OF PROTEIN URINE (01/06/18) ASSAY OF TROPONIN QUANT (08/04/17) ASSAY OF URINE CREATININE (01/06/18) ASSAY THYROID STIM HORMONE (12/16/17) BLOOD CULTURE FOR BACTERIA (07/22/17) BLOOD GASES ANY COMBINATION (08/04/17) C-REACTIVE PROTEIN (11/07/15) CHEST X-RAY 1 VIEW FRONTAL (08/04/17) CHEST X-RAY 2VW FRONTAL&LATL (08/04/17) COMPLETE CBC AUTOMATED (05/06/14) COMPLETE CBC W/AUTO DIFF WBC (01/06/18) COMPREHEN METABOLIC PANEL (12/16/17) CREATININE CLEARANCE TEST (04/10/16) CT ABD & PELVIS W/O CONTRAST (11/07/15) DRUG TEST PRSMV DIR OPT OBS (08/04/17) EGD BIOPSY SINGLE/MULTIPLE (01/29/17) ELECTROCARDIOGRAM TRACING (08/04/17) EMERGENCY DEPT VISIT (09/25/17) EMERGENCY DEPT VISIT (08/04/17) EMERGENCY DEPT VISIT (07/20/17) EMERGENCY DEPT VISIT (07/15/17) EMERGENCY DEPT VISIT (04/17/17) EMERGENCY DEPT VISIT (12/14/16) EMERGENCY DEPT VISIT (11/07/15) EMERGENCY DEPT VISIT (11/07/15) EMERGENCY DEPT VISIT (03/28/15) EMERGENCY DEPT VISIT (03/12/15) EMERGENCY DEPT VISIT (09/28/14) EMERGENCY DEPT VISIT (06/19/14) EMERGENCY DEPT VISIT (04/03/14) EXTREMITY STUDY (07/20/17) FIBRIN DEGRADATION QUANT (07/22/17) GASTRIC EMPTYING IMAG STUDY (02/03/17) GLUCOSE BLOOD TEST (09/25/17) GLYCOSYLATED HEMOGLOBIN TEST (12/16/17) HYDRATE IV INFUSION ADD-ON (08/04/17) IMMUNIZATION ADMIN (07/20/17) INFLUENZA ASSAY W/OPTIC (08/04/17) IRON BINDING TEST (09/25/17) LIPID PANEL (09/30/17) LUNG VENTILAT&PERFUS IMAGING (07/22/17) METABOLIC PANEL TOTAL CA (10/07/17) OCCULT BLD FECES 1-3 TESTS (11/07/15) PROTHROMBIN TIME (07/22/17) RENAL FUNCTION PANEL (01/06/18) ROUTINE VENIPUNCTURE (01/06/18) SPECIAL STAINS GROUP 1 (10/17/14) STOOL CULTR AEROBIC BACT EA (11/07/15) TDAP VACCINE 7 YRS/> IM (07/20/17) TEST FOR ACETONE/KETONES (07/20/17) THER/PROPH/DIAG INJ IV PUSH (08/04/17) THER/PROPH/DIAG INJ SC/IM (08/04/17) THER/PROPH/DIAG IV INF ADDON (07/22/17) THER/PROPH/DIAG IV INF INIT (08/04/17) TISSUE EXAM BY PATHOLOGIST (10/17/14) TTE W/DOPPLER COMPLETE (07/22/17) TX GASTRO INTUB W/ASP (08/04/17) TX/PRO/DX INJ NEW DRUG ADDON (08/04/17) TX/PRO/DX INJ SAME DRUG BODY SHOP TECHNICIAN (08/04/17) UR ALBUMIN SEMIQUANTITATIVE (04/08/16) URINALYSIS AUTO W/O SCOPE (12/14/16) URINALYSIS AUTO W/SCOPE (01/06/18) US EXAM ABDO BACK WALL DIALLO (04/17/16) WITHDRAWAL OF ARTERIAL BLOOD (08/04/17) X-RAY EXAM OF FOOT (07/20/17) (1) Gangrene of toe SNOMED Code(s): 231877169 Code(s): I96 - GANGRENE, NOT ELSEWHERE CLASSIFIED Current Visit: Yes Problem List Initiated/Reviewed/Updated: Yes My Orders Last 24 Hours: My Active Orders 01/22/18 05:00 GLYCOSYLATED HEMOGLOBIN,HGBA1C [CHEM] Routine Plan: 1. Continue treatment of patient with fluids and antibiotic. 2. Surgical amputation of right fifth toe pending improved labs. I would like to see hemoglobin at least at 10 if achievable. 3. Continue application of dry dressings daily. 4. I have reviewed the MRI report. Gangrenous changes appear limited to the fifth toe and in my opinion it is best to further stabilize the patient. I will discuss with Dr. Cabrera / Nurse Barbara. I am available to perform surgery over the weekend but it may take until later for improved labs.
[2018-01-21] MEDS ORDERED: Insulin Glargine,Human Rec. Analog 100 Units/ML 3 ML Pen SUBCUT SCH ×2 (21:00)
[2018-01-22] MEDS ORDERED: Insulin Regular, Human 100 Units/ML 10 ML Vial IVPUSH ONE (06:25)
[2018-01-22] MEDS ORDERED: Insulin Aspart 100 Units/ML 3 ML Pen SUBCUT ONE (06:30)
[2018-01-22] MEDS: Pantoprazole 40 MG Tab.CR PO SCH (07:24)
--- NOTE | 2018-01-22 08:00 | PCM.PN ---
- General Info Date of Service: 01/22/18 Admission Dx/Problem (Free Text): Admission Diagnosis/Problem Admission Diagnosis/Problem Leukocytosis, necrotic fifth toe right foot Subjective Update: Anxious this morning about BS and not getting insulin. We had long discussion about not wanting severe lows in 40s, which is why Lantus was held yesterday. he reports it was low because he wasn't eating much due to not feeling well with antibiotics. I explained we need to maintain BS better and with diet is monitored more in the hospital, sometimes we need to adjust insulin to accommodate that. He agreed and appreciated the communication. We also discussed why some BP medications were being held initially due to acute kidney injury, which we will start to restart now. He denies chest pain or SOB. No abdominal pain or diarrhea. Pain to R foot waxes and wanes. Pain is worse at night time. Has been keeping it elevated as much as possible. No fevers. Functional Status: Reports: Pain Controlled, Tolerating Diet, Ambulating, Urinating - Review of Systems General: Reports: No Symptoms. Denies: Fever HEENT: Reports: No Symptoms. Denies: Headaches, Sore Throat, Rhinitis Pulmonary: Reports: No Symptoms. Denies: Shortness of Breath Cardiovascular: Reports: No Symptoms. Denies: Chest Pain Gastrointestinal: Reports: No Symptoms. Denies: Abdominal Pain, Nausea, Vomiting Genitourinary: Reports: No Symptoms. Denies: Dysuria, Frequency, Burning Musculoskeletal: Reports: Foot Pain (R foot) Neurological: Reports: No Symptoms Psychiatric: Reports: No Symptoms - Patient Data Vitals - Most Recent: Last Vital Signs Temp 97.7 F 01/22/18 04:00 Pulse 99 01/22/18 04:00 Resp 20 01/22/18 04:00 BP 159/80 H 01/22/18 04:00 Pulse Ox 97 01/22/18 04:00 Weight - Most Recent: 83.053 kg I&O - Last 24 Hours: Intake & Output 01/21/18 01/22/18 01/22/18 22:59 06:59 14:59 Intake Total 790 496 Output Total 1000 700 Balance -210 -204 Lab Results Last 24 Hours: Laboratory Results - last 24 hr 01/20/18 01/21/18 01/21/18 Range/Units 17:06 06:22 12:00 WBC (4.0-11.0) K/uL RBC (4.50-5.90) M/uL Hgb (13.0-17.0) g/dL Hct (38.0-50.0) % MCV (80.0-98.0) fL MCH (27.0-32.0) pg MCHC (31.0-37.0) g/dL RDW Std Deviation (28.0-62.0) fl RDW Coeff of Dania (11.0-15.0) % Plt Count (150-400) K/uL MPV (7.40-12.00) fL Neut % (Auto) (48.0-80.0) % Lymph % (Auto) (16.0-40.0) % [place] % (Auto) (0.0-15.0) % Eos % (Auto) (0.0-7.0) % Baso % (Auto) (0.0-1.5) % Neut # (Auto) (1.4-5.7) K/uL Lymph # (Auto) (0.6-2.4) K/uL [place] # (Auto) (0.0-0.8) K/uL Eos # (Auto) (0.0-0.7) K/uL Baso # (Auto) (0.0-0.1) K/uL Nucleated RBC % /100WBC Nucleated RBCs # K/uL Sodium (136-148) mmol/L Potassium (3.5-5.1) mmol/L Chloride (98-107) mmol/L Carbon Dioxide (21.0-32.0) mmol/L BUN (7.0-18.0) mg/dL Creatinine (0.8-1.3) mg/dL Est Cr Clr Drug Dosing mL/min Estimated GFR (MDRD) ml/min Glucose (74-106) mg/dL POC Glucose 109 47 L (60-110) mg/dL Hemoglobin A1c (4.5-6.2) % Calcium (8.5-10.1) mg/dL Vancomycin Trough (5.0-10.0) ug/mL Blood Type O POSITIVE Antibody Screen NEGATIVE Cold Antibody Screen POSITIVE Crossmatch See Detail 01/21/18 01/21/18 01/21/18 Range/Units 14:16 16:33 18:46 WBC (4.0-11.0) K/uL RBC (4.50-5.90) M/uL Hgb (13.0-17.0) g/dL Hct (38.0-50.0) % MCV (80.0-98.0) fL MCH (27.0-32.0) pg MCHC (31.0-37.0) g/dL RDW Std Deviation (28.0-62.0) fl RDW Coeff of Dania (11.0-15.0) % Plt Count (150-400) K/uL MPV (7.40-12.00) fL Neut % (Auto) (48.0-80.0) % Lymph % (Auto) (16.0-40.0) % [place] % (Auto) (0.0-15.0) % Eos % (Auto) (0.0-7.0) % Baso % (Auto) (0.0-1.5) % Neut # (Auto) (1.4-5.7) K/uL Lymph # (Auto) (0.6-2.4) K/uL [place] # (Auto) (0.0-0.8) K/uL Eos # (Auto) (0.0-0.7) K/uL Baso # (Auto) (0.0-0.1) K/uL Nucleated RBC % /100WBC Nucleated RBCs # K/uL Sodium (136-148) mmol/L Potassium (3.5-5.1) mmol/L Chloride (98-107) mmol/L Carbon Dioxide (21.0-32.0) mmol/L BUN (7.0-18.0) mg/dL Creatinine (0.8-1.3) mg/dL Est Cr Clr Drug Dosing mL/min Estimated GFR (MDRD) ml/min Glucose (74-106) mg/dL POC Glucose 138 H 49 L 54 L (60-110) mg/dL Hemoglobin A1c (4.5-6.2) % Calcium (8.5-10.1) mg/dL Vancomycin Trough (5.0-10.0) ug/mL Blood Type Antibody Screen Cold Antibody Screen Crossmatch 05/10/18 05/10/18 05/11/18 Range/Units 20:40 23:37 04:18 WBC 18.16 H (4.0-11.0) K/uL RBC 4.16 L (4.50-5.90) M/uL Hgb 9.5 L (13.0-17.0) g/dL Hct 28.8 L (38.0-50.0) % MCV 69.2 L (80.0-98.0) fL MCH 22.8 L (27.0-32.0) pg MCHC 33.0 (31.0-37.0) g/dL RDW Std Deviation 47.0 (28.0-62.0) fl RDW Coeff of Dania 19 H (11.0-15.0) % Plt Count 466 H (150-400) K/uL MPV 9.30 (7.40-12.00) fL Neut % (Auto) 77.3 (48.0-80.0) % Lymph % (Auto) 12.3 L (16.0-40.0) % [place] % (Auto) 7.9 (0.0-15.0) % Eos % (Auto) 2.3 (0.0-7.0) % Baso % (Auto) 0.2 (0.0-1.5) % Neut # (Auto) 14.1 H (1.4-5.7) K/uL Lymph # (Auto) 2.2 (0.6-2.4) K/uL [place] # (Auto) 1.4 H (0.0-0.8) K/uL Eos # (Auto) 0.4 (0.0-0.7) K/uL Baso # (Auto) 0.0 (0.0-0.1) K/uL Nucleated RBC % 0.0 /100WBC Nucleated RBCs # 0 K/uL Sodium (136-148) mmol/L Potassium (3.5-5.1) mmol/L Chloride (98-107) mmol/L Carbon Dioxide (21.0-32.0) mmol/L BUN (7.0-18.0) mg/dL Creatinine (0.8-1.3) mg/dL Est Cr Clr Drug Dosing mL/min Estimated GFR (MDRD) ml/min Glucose (74-106) mg/dL POC Glucose 59 L 123 H (60-110) mg/dL Hemoglobin A1c (4.5-6.2) % Calcium (8.5-10.1) mg/dL Vancomycin Trough (5.0-10.0) ug/mL Blood Type Antibody Screen Cold Antibody Screen Crossmatch 01/22/18 01/22/18 01/22/18 Range/Units 04:18 04:18 04:18 WBC (4.0-11.0) K/uL RBC (4.50-5.90) M/uL Hgb (13.0-17.0) g/dL Hct (38.0-50.0) % MCV (80.0-98.0) fL MCH (27.0-32.0) pg MCHC (31.0-37.0) g/dL RDW Std Deviation (28.0-62.0) fl RDW Coeff of Dania (11.0-15.0) % Plt Count (150-400) K/uL MPV (7.40-12.00) fL Neut % (Auto) (48.0-80.0) % Lymph % (Auto) (16.0-40.0) % [place] % (Auto) (0.0-15.0) % Eos % (Auto) (0.0-7.0) % Baso % (Auto) (0.0-1.5) % Neut # (Auto) (1.4-5.7) K/uL Lymph # (Auto) (0.6-2.4) K/uL [place] # (Auto) (0.0-0.8) K/uL Eos # (Auto) (0.0-0.7) K/uL Baso # (Auto) (0.0-0.1) K/uL Nucleated RBC % /100WBC Nucleated RBCs # K/uL Sodium 133 L (136-148) mmol/L Potassium 5.5 H (3.5-5.1) mmol/L Chloride 101 (98-107) mmol/L Carbon Dioxide 25.7 (21.0-32.0) mmol/L BUN 40 H (7.0-18.0) mg/dL Creatinine 1.9 H (0.8-1.3) mg/dL Est Cr Clr Drug Dosing 56.33 mL/min Estimated GFR (MDRD) 41.6 ml/min Glucose 286 H (74-106) mg/dL POC Glucose (60-110) mg/dL Hemoglobin A1c 10.2 H (4.5-6.2) % Calcium 8.6 (8.5-10.1) mg/dL Vancomycin Trough 20.7 H (5.0-10.0) ug/mL Blood Type Antibody Screen Cold Antibody Screen Crossmatch 01/22/18 Range/Units 06:15 WBC (4.0-11.0) K/uL RBC (4.50-5.90) M/uL Hgb (13.0-17.0) g/dL Hct (38.0-50.0) % MCV (80.0-98.0) fL MCH (27.0-32.0) pg MCHC (31.0-37.0) g/dL RDW Std Deviation (28.0-62.0) fl RDW Coeff of Dania (11.0-15.0) % Plt Count (150-400) K/uL MPV (7.40-12.00) fL Neut % (Auto) (48.0-80.0) % Lymph % (Auto) (16.0-40.0) % [place] % (Auto) (0.0-15.0) % Eos % (Auto) (0.0-7.0) % Baso % (Auto) (0.0-1.5) % Neut # (Auto) (1.4-5.7) K/uL Lymph # (Auto) (0.6-2.4) K/uL [place] # (Auto) (0.0-0.8) K/uL Eos # (Auto) (0.0-0.7) K/uL Baso # (Auto) (0.0-0.1) K/uL Nucleated RBC % /100WBC Nucleated RBCs # K/uL Sodium (136-148) mmol/L Potassium (3.5-5.1) mmol/L Chloride (98-107) mmol/L Carbon Dioxide (21.0-32.0) mmol/L BUN (7.0-18.0) mg/dL Creatinine (0.8-1.3) mg/dL Est Cr Clr Drug Dosing mL/min Estimated GFR (MDRD) ml/min Glucose (74-106) mg/dL POC Glucose > 500 H (60-110) mg/dL Hemoglobin A1c (4.5-6.2) % Calcium (8.5-10.1) mg/dL Vancomycin Trough (5.0-10.0) ug/mL Blood Type Antibody Screen Cold Antibody Screen Crossmatch Peter Results Last 24 Hours: Microbiology 01/20/18 17:17 Aerobic Blood Culture - Preliminary Blood - Venous - Lab Draw NO GROWTH AFTER 1 DAY Anaerobic Blood Culture - Preliminary NO GROWTH AFTER 1 DAY 01/20/18 17:06 Aerobic Blood Culture - Preliminary Blood - Venous NO GROWTH AFTER 1 DAY Anaerobic Blood Culture - Preliminary NO GROWTH AFTER 1 DAY Med Orders - Current: Current Medications Acetaminophen (Tylenol) 650 mg PO Q4H PRN PRN Reason: Pain (mild 1-3) Amlodipine Besylate (Norvasc) 10 mg PO DAILY [facility] Last Admin: 01/21/18 08:01 Dose: 10 mg Docusate Sodium (Colace) 100 mg PO BID PRN PRN Reason: Constipation Doxazosin Mesylate (Cardura) 2 mg PO DAILY [facility] Last Admin: 01/21/18 08:00 Dose: 2 mg Ferrous Sulfate (Ferrous Sulfate) 325 mg PO TIDMEALS [facility] Last Admin: 01/21/18 17:31 Dose: 325 mg Vancomycin HCl 1,000 mg/ (Dextrose/Water) 250 mls @ 166.667 mls/hr IV Q12H [facility] Insulin Aspart (Novolog) 0 unit SUBCUT TIDAC [facility]; Protocol Ondansetron HCl (Zofran) 4 mg IVPUSH Q4H PRN PRN Reason: Pain Oxycodone HCl (Oxycodone) 5 mg PO Q4H PRN PRN Reason: Pain (moderate 4-6) Last Admin: 01/21/18 21:45 Dose: 5 mg Pantoprazole Sodium (Protonix) 40 mg PO ACBREAKFAST [facility] Last Admin: 01/22/18 07:24 Dose: 40 mg Sodium Chloride (Saline Flush) 2.5 ml FLUSH ASDIRECTED PRN PRN Reason: Keep Vein Open Vancomycin HCl (Pharmacy To Dose - Vancomycin) 1 dose .XX ASDIRECTED [facility] Discontinued Medications Amlodipine Besylate (Norvasc) 10 mg PO DAILY [facility] Hydralazine HCl (Apresoline) 10 mg IVPUSH ONETIME ONE Stop: 01/21/18 01:35 Last Admin: 01/21/18 01:52 Dose: 10 mg Sodium Chloride (Normal Saline) 1,000 mls @ 100 mls/hr IV ASDIRECTED [facility] Last Infusion: 01/21/18 08:40 Dose: 100 mls/hr Vancomycin HCl 1,250 mg/ (Sodium Chloride) 250 mls @ 166.667 mls/hr IV Q12H [facility] Last Infusion: 01/21/18 19:05 Dose: Infused Insulin Aspart (Novolog) 0 unit SUBCUT TIDAC [facility]; Protocol Last Admin: 01/21/18 12:11 Dose: Not Given Insulin Aspart (Novolog) 0 unit SUBCUT TIDAC [facility] Last Admin: 01/21/18 08:15 Dose: 6 units Insulin Aspart (Novolog) 0 unit SUBCUT TIDAC [facility] Last Admin: 01/21/18 12:12 Dose: Not Given Insulin Aspart (Novolog) 10 unit SUBCUT ONETIME ONE Stop: 01/22/18 06:31 Last Admin: 01/22/18 07:14 Dose: 10 units Insulin Glargine (Lantus Solostar) 42 units SUBCUT BEDTIME [facility] Last Admin: 01/20/18 21:35 Dose: 42 units Insulin Glargine (Lantus Solostar) 35 units SUBCUT BEDTIME MICHAEL Insulin Glargine (Lantus Solostar) 25 units SUBCUT BEDTIME [facility] Insulin Human Regular (Novolin R) 10 unit IVPUSH ONETIME ONE; Protocol Stop: 01/22/18 06:26 Last Admin: 01/22/18 07:24 Dose: 10 units - Exam General: Alert, Oriented, Cooperative, No Acute Distress Lungs: Clear to Auscultation, Normal Respiratory Effort Cardiovascular: Regular Rate, Regular Rhythm GI/Abdominal Exam: Normal Bowel Sounds, Soft, Non-Tender, No Organomegaly, No Distention, No Abnormal Bruit, No Mass, Pelvis Stable Extremities: Normal Range of Motion, Pedal Edema (+2 pitting to RLE. stable. ) Wound/Incisions: Dressing Dry and Intact (R foot dressing intact, will remove prior to having shower. Foul odor continues), No Drainage. No: Erythema Neurological: No New Focal Deficit Psy/Mental Status: Alert, Normal Affect, Normal Mood - Problem List & Annotations (1) Diabetic foot ulcer SNOMED Code(s): 593086480 Code(s): E11.621 - TYPE 2 DIABETES MELLITUS WITH FOOT ULCER; L97.509 - NON- PRESSURE CHRONIC ULCER OTH PRT UNSP FOOT W UNSP SEVERITY Status: Acute Current Visit: No Qualifiers: Diabetic foot ulcer location: toe Diabetes mellitus type: type 1 Laterality: right Non-pressure ulcer stage: with necrosis of muscle Qualified Code(s): E10.621 - Type 1 diabetes mellitus with foot ulcer; L97.513 - Non-pressure chronic ulcer of other part of right foot with necrosis of muscle (2) History of GI bleed SNOMED Code(s): 564126995 Code(s): Z87.19 - PERSONAL HISTORY OF OTHER DISEASES OF THE DIGESTIVE SYSTEM Status: Chronic Current Visit: Yes (3) Diabetic gastroparesis SNOMED Code(s): 460237609 Code(s): E11.43 - TYPE 2 DIABETES W DIABETIC AUTONOMIC (POLY)NEUROPATHY; K31.84 - GASTROPARESIS Status: Chronic Current Visit: No (4) Chronic renal insufficiency SNOMED Code(s): 747230093 Code(s): N18.9 - CHRONIC KIDNEY DISEASE, UNSPECIFIED Status: Chronic Current Visit: No (5) Diabetes mellitus type I SNOMED Code(s): 82630315 Code(s): E10.9 - TYPE 1 DIABETES MELLITUS WITHOUT COMPLICATIONS Status: Chronic Current Visit: No Qualifiers: Diabetes mellitus complication status: with kidney complications Diabetes mellitus complication detail: with chronic kidney disease (6) Hypertension SNOMED Code(s): 54838169 Code(s): I10 - ESSENTIAL (PRIMARY) HYPERTENSION Status: Chronic Current Visit: No Qualifiers: Hypertension type: essential hypertension Qualified Code(s): I10 - Essential (primary) hypertension (7) Hx of gastroesophageal reflux (GERD) SNOMED Code(s): 51262009563558 Code(s): Z87.19 - PERSONAL HISTORY OF OTHER DISEASES OF THE DIGESTIVE SYSTEM Status: Chronic Current Visit: Yes (8) Hx MRSA infection SNOMED Code(s): 632377151, 379186288 Code(s): Z86.14 - PERSONAL HISTORY OF METHICILLIN RESIS STAPH INFECTION Status: Chronic Current Visit: Yes (9) Anemia SNOMED Code(s): 408831340 Code(s): D64.9 - ANEMIA, UNSPECIFIED Status: Chronic Current Visit: No Qualifiers: Anemia type: due to chronic kidney disease - Problem List Review Problem List Initiated/Reviewed/Updated: Yes - My Orders Last 24 Hours: My Active Orders 01/21/18 07:30 Pantoprazole [ProTONIX] 40 mg PO ACBREAKFAST 01/21/18 08:00 Ferrous Sulfate 325 mg PO TIDMEALS 01/21/18 08:29 Transfuse PRBC [Transfuse Red Blood Cells] [COMM] Routine 01/21/18 09:00 Doxazosin [Cardura] 2 mg PO DAILY 01/21/18 11:11 Consult to Physician [CONS] Routine 01/21/18 11:12 Notify Provider Consults [RC] ASDIRECTED 01/22/18 07:30 Insulin Aspart [NovoLOG] See Protocol SUBCUT TIDAC 01/23/18 05:11 BASIC METABOLIC PANEL,BMP [CHEM] AM CBC WITH AUTO DIFF [HEME] AM - Plan Plan:: This 32 year old male admitted with leukocytosis, necrotic 5th digit of R foot, acute on chronic kidney injury 1. Diabetic foot ulcer: Necrotic 5th digit of R foot, needing amputation. Leukocytosis 18,000 today. BC negative x 1 day. Continue Vancomycin IV. VS stable. Keep R leg elevated to help with edema. Daily dressing changes. Dr English saw patient last evening, plan for surgery this or Thursday. 2. Anemia: Hgb 9.5 after 3 units. 3. Acute on chronic kidney injury: Improving. restart Torsemide today and monitor. Continue to Hold Spironolactone and Enalapril due to increase in renal function. 4. HTN: Stable, continue home medications. Continue Cardura and Norvasc. 5. Dm type 1: had hypoglycemia throughout yesterday, held Lantus overnight. This morning BS >500. Give 10 units IV and 10 units subcut, BS 116. Will add carb ratio back at 15:1 and lower SSI. Will also decrease Lantus to 30 units at night from 42. Discussed with Waqas we want to limit extreme lows and with diet restrictions we should decrease Lantus and monitor. Continue to monitor closely today. have DM educator visit and evaluate home meter. 6. GERD and hx GI bleeding: No signs of acute bleed currently. No pharmacologic VTE agents due to history. Continue PPI. VTE prophylaxis: SCDs and ambulation. Dispo; 3-4 days pending improvement and surgical intervention.
[2018-01-22] MEDS: Insulin Aspart 100 Units/ML 3 ML Pen SUBCUT SCH ×6 (08:32→19:40)
[2018-01-22] MEDS: amLODIPine 5 MG Tab PO SCH (08:41)
[2018-01-22] MEDS: Doxazosin 2 MG Tab PO SCH (08:41)
[2018-01-22] MEDS: Ferrous Sulfate 325 MG Tab PO SCH ×3 (08:41→17:20)
[2018-01-22] MEDS: Torsemide 20 MG Tab PO SCH (10:50)
[2018-01-22] MEDS: Insulin Glargine,Human Rec. Analog 100 Units/ML 3 ML Pen SUBCUT SCH (21:00)
[2018-01-23] MEDS: oxyCODONE 5 MG Tab PO PRN ×4 (03:20→23:42)
[2018-01-23] MEDS: Pantoprazole 40 MG Tab.CR PO SCH (06:30)
[2018-01-23] MEDS: Insulin Aspart 100 Units/ML 3 ML Pen SUBCUT SCH ×6 (06:31→19:27)
[2018-01-23] MEDS: Ferrous Sulfate 325 MG Tab PO SCH ×3 (07:59→17:31)
[2018-01-23] MEDS: Doxazosin 2 MG Tab PO SCH (09:26)
[2018-01-23] MEDS: amLODIPine 5 MG Tab PO SCH (09:27)
[2018-01-23] MEDS: Torsemide 20 MG Tab PO SCH (09:28)
[2018-01-23] MEDS: Cefepime 1 GM in Premix Bag 1 BAG IV SCH ×2 (09:40→17:31)
[2018-01-23] MEDS ORDERED: Sodium Polystyrene Sulfonate 15 GM/60 ML Susp 60 ML Bot PO ONE ×2 (09:43→18:16)
--- NOTE | 2018-01-23 12:40 | PCM.PN ---
- General Info Date of Service: 01/23/18 Admission Dx/Problem (Free Text): Admission Diagnosis/Problem Admission Diagnosis/Problem Leukocytosis, necrotic fifth toe right foot Subjective Update: Patient complains of right leg swelling and pain Functional Status: Reports: Tolerating Diet, Urinating. Denies: Ambulating - Review of Systems General: Reports: No Symptoms HEENT: Reports: No Symptoms Pulmonary: Reports: No Symptoms Cardiovascular: Reports: No Symptoms Gastrointestinal: Reports: No Symptoms Genitourinary: Reports: No Symptoms Musculoskeletal: Reports: Leg Pain, Foot Pain Skin: Reports: No Symptoms Neurological: Reports: No Symptoms Psychiatric: Reports: No Symptoms - Patient Data Vitals - Most Recent: Last Vital Signs Temp 37.2 C 01/23/18 08:00 Pulse 109 H 01/23/18 08:00 Resp 16 01/23/18 08:00 BP 150/88 H 01/23/18 09:27 Pulse Ox 95 01/23/18 04:00 Weight - Most Recent: 83.053 kg I&O - Last 24 Hours: Intake & Output 01/22/18 01/23/18 01/23/18 22:59 06:59 14:59 Intake Total 1000 1250 Output Total 1000 1500 Balance 0 -250 Lab Results Last 24 Hours: Laboratory Results - last 24 hr 01/22/18 01/22/18 01/23/18 Range/Units 16:50 21:05 02:09 WBC 17.04 H (4.0-11.0) K/uL RBC 4.35 L (4.50-5.90) M/uL Hgb 9.8 L (13.0-17.0) g/dL Hct 30.5 L (38.0-50.0) % MCV 70.1 L (80.0-98.0) fL MCH 22.5 L (27.0-32.0) pg MCHC 32.1 (31.0-37.0) g/dL RDW Std Deviation 49.4 (28.0-62.0) fl RDW Coeff of Dania 20 H (11.0-15.0) % Plt Count 518 H (150-400) K/uL MPV 9.40 (7.40-12.00) fL Neut % (Auto) 76.3 (48.0-80.0) % Lymph % (Auto) 12.3 L (16.0-40.0) % Coleman % (Auto) 8.0 (0.0-15.0) % Eos % (Auto) 3.2 (0.0-7.0) % Baso % (Auto) 0.2 (0.0-1.5) % Neut # (Auto) 13.0 H (1.4-5.7) K/uL Lymph # (Auto) 2.1 (0.6-2.4) K/uL Coleman # (Auto) 1.4 H (0.0-0.8) K/uL Eos # (Auto) 0.5 (0.0-0.7) K/uL Baso # (Auto) 0.0 (0.0-0.1) K/uL Nucleated RBC % 0.0 /100WBC Nucleated RBCs # 0 K/uL Smear Path Review Sodium (136-148) mmol/L Potassium (3.5-5.1) mmol/L Chloride (98-107) mmol/L Carbon Dioxide (21.0-32.0) mmol/L BUN (7.0-18.0) mg/dL Creatinine (0.8-1.3) mg/dL Est Cr Clr Drug Dosing mL/min Estimated GFR (MDRD) ml/min Glucose (74-106) mg/dL POC Glucose 153 H 198 H (60-110) mg/dL Calcium (8.5-10.1) mg/dL Iron (50-175) ug/dL TIBC (250-450) ug/dL % Saturation (20-55) % Ferritin (26-388) ng/mL Lactate Dehydrogenase (81-234) U/L KATHLEEN, Poly Interpret (NEGATIVE) 01/23/18 01/23/18 01/23/18 Range/Units 02:09 02:09 02:09 WBC (4.0-11.0) K/uL RBC (4.50-5.90) M/uL Hgb (13.0-17.0) g/dL Hct (38.0-50.0) % MCV (80.0-98.0) fL MCH (27.0-32.0) pg MCHC (31.0-37.0) g/dL RDW Std Deviation (28.0-62.0) fl RDW Coeff of Dania (11.0-15.0) % Plt Count (150-400) K/uL MPV (7.40-12.00) fL Neut % (Auto) (48.0-80.0) % Lymph % (Auto) (16.0-40.0) % Coleman % (Auto) (0.0-15.0) % Eos % (Auto) (0.0-7.0) % Baso % (Auto) (0.0-1.5) % Neut # (Auto) (1.4-5.7) K/uL Lymph # (Auto) (0.6-2.4) K/uL Coleman # (Auto) (0.0-0.8) K/uL Eos # (Auto) (0.0-0.7) K/uL Baso # (Auto) (0.0-0.1) K/uL Nucleated RBC % /100WBC Nucleated RBCs # K/uL Smear Path Review SENT TO PATHOLOGY Sodium 133 L (136-148) mmol/L Potassium 6.0 H (3.5-5.1) mmol/L Chloride 102 (98-107) mmol/L Carbon Dioxide 28.5 (21.0-32.0) mmol/L BUN 36 H (7.0-18.0) mg/dL Creatinine 1.9 H (0.8-1.3) mg/dL Est Cr Clr Drug Dosing 56.33 mL/min Estimated GFR (MDRD) 41.6 ml/min Glucose 226 H (74-106) mg/dL POC Glucose (60-110) mg/dL Calcium 8.7 (8.5-10.1) mg/dL Iron (50-175) ug/dL TIBC (250-450) ug/dL % Saturation (20-55) % Ferritin (26-388) ng/mL Lactate Dehydrogenase (81-234) U/L KATHLEEN, Poly Interpret NEGATIVE (NEGATIVE) 01/23/18 01/23/18 01/23/18 Range/Units 03:13 06:24 10:11 WBC (4.0-11.0) K/uL RBC (4.50-5.90) M/uL Hgb (13.0-17.0) g/dL Hct (38.0-50.0) % MCV (80.0-98.0) fL MCH (27.0-32.0) pg MCHC (31.0-37.0) g/dL RDW Std Deviation (28.0-62.0) fl RDW Coeff of Dania (11.0-15.0) % Plt Count (150-400) K/uL MPV (7.40-12.00) fL Neut % (Auto) (48.0-80.0) % Lymph % (Auto) (16.0-40.0) % Coleman % (Auto) (0.0-15.0) % Eos % (Auto) (0.0-7.0) % Baso % (Auto) (0.0-1.5) % Neut # (Auto) (1.4-5.7) K/uL Lymph # (Auto) (0.6-2.4) K/uL Coleman # (Auto) (0.0-0.8) K/uL Eos # (Auto) (0.0-0.7) K/uL Baso # (Auto) (0.0-0.1) K/uL Nucleated RBC % /100WBC Nucleated RBCs # K/uL Smear Path Review Sodium (136-148) mmol/L Potassium (3.5-5.1) mmol/L Chloride (98-107) mmol/L Carbon Dioxide (21.0-32.0) mmol/L BUN (7.0-18.0) mg/dL Creatinine (0.8-1.3) mg/dL Est Cr Clr Drug Dosing mL/min Estimated GFR (MDRD) ml/min Glucose (74-106) mg/dL POC Glucose 59 L 233 H (60-110) mg/dL Calcium (8.5-10.1) mg/dL Iron (50-175) ug/dL TIBC (250-450) ug/dL % Saturation (20-55) % Ferritin (26-388) ng/mL Lactate Dehydrogenase 249 H (81-234) U/L KATHLEEN, Poly Interpret (NEGATIVE) 01/23/18 01/23/18 Range/Units 10:11 10:54 WBC (4.0-11.0) K/uL RBC (4.50-5.90) M/uL Hgb (13.0-17.0) g/dL Hct (38.0-50.0) % MCV (80.0-98.0) fL MCH (27.0-32.0) pg MCHC (31.0-37.0) g/dL RDW Std Deviation (28.0-62.0) fl RDW Coeff of Dania (11.0-15.0) % Plt Count (150-400) K/uL MPV (7.40-12.00) fL Neut % (Auto) (48.0-80.0) % Lymph % (Auto) (16.0-40.0) % Coleman % (Auto) (0.0-15.0) % Eos % (Auto) (0.0-7.0) % Baso % (Auto) (0.0-1.5) % Neut # (Auto) (1.4-5.7) K/uL Lymph # (Auto) (0.6-2.4) K/uL Coleman # (Auto) (0.0-0.8) K/uL Eos # (Auto) (0.0-0.7) K/uL Baso # (Auto) (0.0-0.1) K/uL Nucleated RBC % /100WBC Nucleated RBCs # K/uL Smear Path Review Sodium (136-148) mmol/L Potassium (3.5-5.1) mmol/L Chloride (98-107) mmol/L Carbon Dioxide (21.0-32.0) mmol/L BUN (7.0-18.0) mg/dL Creatinine (0.8-1.3) mg/dL Est Cr Clr Drug Dosing mL/min Estimated GFR (MDRD) ml/min Glucose (74-106) mg/dL POC Glucose 234 H (60-110) mg/dL Calcium (8.5-10.1) mg/dL Iron 11 L (50-175) ug/dL TIBC 167 L (250-450) ug/dL % Saturation 6.59 L (20-55) % Ferritin 216 (26-388) ng/mL Lactate Dehydrogenase (81-234) U/L KATHLEEN, Poly Interpret (NEGATIVE) Peter Results Last 24 Hours: Microbiology 01/20/18 17:17 Aerobic Blood Culture - Preliminary Blood - Venous - Lab Draw NO GROWTH AFTER 2 DAYS Anaerobic Blood Culture - Preliminary NO GROWTH AFTER 2 DAYS 01/20/18 17:06 Aerobic Blood Culture - Preliminary Blood - Venous NO GROWTH AFTER 2 DAYS Anaerobic Blood Culture - Preliminary NO GROWTH AFTER 2 DAYS Med Orders - Current: Current Medications Acetaminophen (Tylenol) 650 mg PO Q4H PRN PRN Reason: Pain (mild 1-3) Amlodipine Besylate (Norvasc) 10 mg PO DAILY [facility] Last Admin: 01/23/18 09:27 Dose: 10 mg Docusate Sodium (Colace) 100 mg PO BID PRN PRN Reason: Constipation Doxazosin Mesylate (Cardura) 2 mg PO DAILY [facility] Last Admin: 01/23/18 09:26 Dose: 2 mg Ferrous Sulfate (Ferrous Sulfate) 325 mg PO TIDMEALS [facility] Last Admin: 01/23/18 12:25 Dose: 325 mg Vancomycin HCl 1 gm/ Sodium (Chloride) 250 mls @ 166.667 mls/hr IV Q12H [facility] Last Admin: 01/23/18 10:42 Dose: 166.667 mls/hr Cefepime HCl 1 gm/ Premix 50 mls @ 100 mls/hr IV Q8H [facility] Last Admin: 01/23/18 09:40 Dose: 100 mls/hr Insulin Aspart (Novolog) 0 unit SUBCUT TIDAC [facility]; Protocol Last Admin: 01/23/18 11:00 Dose: 4 units Insulin Aspart (Novolog) 0 unit SUBCUT TIDAC [facility] Last Admin: 01/23/18 09:31 Dose: Not Given Insulin Glargine (Lantus Solostar) 30 units SUBCUT BEDTIME [facility] Last Admin: 01/22/18 21:00 Dose: 30 units Ondansetron HCl (Zofran) 4 mg IVPUSH Q4H PRN PRN Reason: Pain Oxycodone HCl (Oxycodone) 5 mg PO Q4H PRN PRN Reason: Pain (moderate 4-6) Last Admin: 01/23/18 09:40 Dose: 5 mg Pantoprazole Sodium (Protonix) 40 mg PO ACBREAKFAST [facility] Last Admin: 01/23/18 06:30 Dose: 40 mg Sodium Chloride (Saline Flush) 2.5 ml FLUSH ASDIRECTED PRN PRN Reason: Keep Vein Open Torsemide (Demadex) 20 mg PO DAILY [facility] Last Admin: 01/23/18 09:28 Dose: 20 mg Vancomycin HCl (Pharmacy To Dose - Vancomycin) 1 dose .XX ASDIRECTED [facility] Discontinued Medications Amlodipine Besylate (Norvasc) 10 mg PO DAILY [facility] Hydralazine HCl (Apresoline) 10 mg IVPUSH ONETIME ONE Stop: 01/21/18 01:35 Last Admin: 01/21/18 01:52 Dose: 10 mg Sodium Chloride (Normal Saline) 1,000 mls @ 100 mls/hr IV ASDIRECTED [facility] Last Infusion: 01/21/18 08:40 Dose: 100 mls/hr Vancomycin HCl 1,250 mg/ (Sodium Chloride) 250 mls @ 166.667 mls/hr IV Q12H [facility] Last Admin: 01/22/18 08:09 Dose: Not Given Insulin Aspart (Novolog) 0 unit SUBCUT TIDAC [facility]; Protocol Last Admin: 01/21/18 12:11 Dose: Not Given Insulin Aspart (Novolog) 0 unit SUBCUT TIDAC [facility] Last Admin: 01/21/18 08:15 Dose: 6 units Insulin Aspart (Novolog) 0 unit SUBCUT TIDAC [facility] Last Admin: 01/21/18 12:12 Dose: Not Given Insulin Aspart (Novolog) 10 unit SUBCUT ONETIME ONE Stop: 01/22/18 06:31 Last Admin: 01/22/18 07:14 Dose: 10 units Insulin Glargine (Lantus Solostar) 42 units SUBCUT BEDTIME [facility] Last Admin: 01/20/18 21:35 Dose: 42 units Insulin Glargine (Lantus Solostar) 35 units SUBCUT BEDTIME [facility] Insulin Glargine (Lantus Solostar) 25 units SUBCUT BEDTIME [facility] Insulin Human Regular (Novolin R) 10 unit IVPUSH ONETIME ONE; Protocol Stop: 01/22/18 06:26 Last Admin: 01/22/18 07:24 Dose: 10 units Sodium Polystyrene Sulfonate (Kayexalate) 15 gm PO ONETIME ONE Stop: 01/23/18 09:44 Last Admin: 01/23/18 10:42 Dose: 15 gm - Exam General: Alert, Oriented, Cooperative HEENT: Pupils Equal, Pupils Reactive Neck: Supple Lungs: Clear to Auscultation, Normal Respiratory Effort Cardiovascular: Regular Rate, Regular Rhythm GI/Abdominal Exam: Normal Bowel Sounds, Soft, Non-Tender Back Exam: Normal Inspection Extremities: Other (Right leg swelling extending from toes to above knee, mild tenderness to palpation, no overlying redness, pain with movement ) Neurological: No New Focal Deficit Psy/Mental Status: Alert - Problem List Review Problem List Initiated/Reviewed/Updated: Yes - My Orders Last 24 Hours: My Active Orders 01/23/18 09:00 Cefepime [Maxipime in D5W 1 GM/50 ML] 1 gm Premix Bag 1 bag IV Q8H 01/23/18 09:59 OCCULT BLOOD DIAGNOSTIC [OP] Routine 01/23/18 10:11 HAPTOGLOBIN [REF] Routine 01/23/18 16:00 BASIC METABOLIC PANEL,BMP [CHEM] Routine - Plan Plan:: #Diabetic Foot Infection, 5th digit of R foot #OM R Foot, on MRI #Leukocytosis, secondary to above #elevated ESR, secondary to above #History of MRSA -afebrile, BC NGTD, currently on Vancomycin -Dr. English, Podiatry consulted, planning for amputation once patient stable -Right leg swelling with increased pain since this morning Plan: -continue right leg elevation, daily dressing change, f/u BC -continue Vancomycin -add Cefepime -request Podiatry to obtain biopsy of clean margin during surgery to be sent to pathology to r/o persistent OM -request Podiatry or IR to obtain tissue samples for culture to guide therapy if OM persists following amputation -discussed with patient and he acknowledges understanding and is agreeable to assisted IV antibiotics in the event that OM persists #Right leg swelling -differential includes cellulitis, DVT and Volume overload -obtain venous Doppler RLE -continue Torsemide -as per above #Anemia, Microcytic -unclear etiology, likely multifactoral -Hb 8.5 at admission, transfused 3 units, post-transfusion 9.5 -Hb today 9.8 -Podiatry requesting Hb over 10 prior to surgery -patient on FeSo4 supplements Plan: -obtain Iron, TIBC, Ferritin, LDH, Haptoglobin, Direct Timothy, Peripheral smear & Stool for Occult blood -continue FeSO4 supplements -continue to monitor #Subacute Kidney Injury -Cr 2.6 at admission, currently 1.9 -most recent renal function at least 3 months prior is from 10/08/17 - Cr 0.9, GFR>60 -estimating baseline Cr 1.4 based on chart -Urine Protein negative on current UA Plan: -obtain UA, Teodora, UCr, Uprotein & BMP -continue Torsemide 20 mg QD -holding home Spironolactone and Enalapril -administer NS 1L bolus -obtain serum Phos daily #HTN -currently uncontrolled, may be due to pain from infection -home meds include Amlodipine 10 mg QD, Doxazosin 2 mg QD, Enalapril 40 mg QD & Spironolactone 25 mg QD -currently on Amlodipine and Doxazosin -continue to monitor #Dm type 1, uncontrolled -HbA1C 10.2% -currently on Lantus 30 units QD SSI medium dose -BG levels fluctuating -continue to monitor #Hyperkalemia, level 6.0 -administer Kayexalate -repeat BMP in evening #Hyperphosphatemia, level 5.3 -serial phos levels #GERD and hx GI bleeding -No signs of acute bleed currently -No pharmacologic VTE agents due to history -Continue PPI VTE prophylaxis: SCDs and ambulation.
[2018-01-23] MEDS ORDERED: Sodium Chloride 0.9% 1,000 ML IV ONE (19:01)
[2018-01-23] MEDS ORDERED: Sodium Polystyrene Sulfonate 15 GM/60 ML Susp 60 ML Bot ONE (19:36)
[2018-01-23] MEDS: Insulin Aspart 100 Units/ML 3 ML Pen SUBCUT ONE (20:04)
[2018-01-23] MEDS: Insulin Glargine,Human Rec. Analog 100 Units/ML 3 ML Pen SUBCUT SCH (21:28)
[2018-01-24] MEDS: Cefepime 1 GM in Premix Bag 1 BAG IV SCH ×3 (01:00→17:13)
[2018-01-24] MEDS: Insulin Aspart 100 Units/ML 3 ML Pen SUBCUT SCH ×6 (06:33→19:26)
[2018-01-24] MEDS: Pantoprazole 40 MG Tab.CR PO SCH (06:47)
[2018-01-24] MEDS: Ferrous Sulfate 325 MG Tab PO SCH ×3 (08:45→17:17)
[2018-01-24] MEDS: amLODIPine 5 MG Tab PO SCH (08:45)
[2018-01-24] MEDS: Doxazosin 2 MG Tab PO SCH (08:46)
[2018-01-24] MEDS: Torsemide 20 MG Tab PO SCH (08:46)
[2018-01-24] MEDS: Ondansetron 4 MG/2 ML SDV IVPUSH PRN (09:10)
--- NOTE | 2018-01-24 16:14 | PCM.PN ---
- General Info Date of Service: 01/24/18 - Review of Systems Systems Review Comment:: no new complaints - Patient Data Vitals - Most Recent: Last Vital Signs Temp 37.3 C 01/24/18 12:00 Pulse 108 H 01/24/18 12:00 Resp 17 01/24/18 12:00 BP 178/92 H 01/24/18 12:00 Pulse Ox 96 01/24/18 12:00 Weight - Most Recent: 83.053 kg I&O - Last 24 Hours: Intake & Output 01/24/18 01/24/18 01/24/18 06:59 14:59 22:59 Intake Total 900 300 Output Total 900 Balance 0 300 Lab Results Last 24 Hours: Laboratory Results - last 24 hr 01/20/18 01/23/18 01/23/18 Range/Units 17:06 16:01 16:19 WBC (4.0-11.0) K/uL RBC (4.50-5.90) M/uL Hgb (13.0-17.0) g/dL Hct (38.0-50.0) % MCV (80.0-98.0) fL MCH (27.0-32.0) pg MCHC (31.0-37.0) g/dL RDW Std Deviation (28.0-62.0) fl RDW Coeff of Dania (11.0-15.0) % Plt Count (150-400) K/uL MPV (7.40-12.00) fL Neut % (Auto) (48.0-80.0) % Lymph % (Auto) (16.0-40.0) % Dundy % (Auto) (0.0-15.0) % Eos % (Auto) (0.0-7.0) % Baso % (Auto) (0.0-1.5) % Neut # (Auto) (1.4-5.7) K/uL Lymph # (Auto) (0.6-2.4) K/uL Dundy # (Auto) (0.0-0.8) K/uL Eos # (Auto) (0.0-0.7) K/uL Baso # (Auto) (0.0-0.1) K/uL Nucleated RBC % /100WBC Nucleated RBCs # K/uL Sodium 131 L (136-148) mmol/L Potassium 6.3 H (3.5-5.1) mmol/L Chloride 100 (98-107) mmol/L Carbon Dioxide 26.8 (21.0-32.0) mmol/L BUN 37 H (7.0-18.0) mg/dL Creatinine 1.9 H (0.8-1.3) mg/dL Est Cr Clr Drug Dosing 56.33 mL/min Estimated GFR (MDRD) 41.6 ml/min Glucose 338 H (74-106) mg/dL POC Glucose 326 H (60-110) mg/dL Calcium 8.6 (8.5-10.1) mg/dL Phosphorus (2.6-4.7) mg/dL Urine Color Urine Appearance Urine pH (5.0-8.0) Ur Specific Wilber (1.001-1.035) Urine Protein (NEGATIVE) mg/dL Urine Glucose (UA) (NEGATIVE) mg/dL Urine Ketones (NEGATIVE) mg/dL Urine Occult Blood (NEGATIVE) Urine Nitrite (NEGATIVE) Urine Bilirubin (NEGATIVE) Urine Urobilinogen (<2.0) EU/dL Ur Leukocyte Esterase (NEGATIVE) Urine RBC (0-2/HPF) Urine WBC (0-5/HPF) Ur Epithelial Cells (NONE-FEW) Urine Bacteria (NEGATIVE) Ur Random Creatinine mg/dL Ur Random Microalbumin (<20) mg/L Ur Random Sodium (40.0-220.0) mmol/L Vancomycin Trough (5.0-10.0) ug/mL Crossmatch See Detail 01/23/18 01/23/18 01/23/18 Range/Units 19:53 21:08 22:56 WBC (4.0-11.0) K/uL RBC (4.50-5.90) M/uL Hgb (13.0-17.0) g/dL Hct (38.0-50.0) % MCV (80.0-98.0) fL MCH (27.0-32.0) pg MCHC (31.0-37.0) g/dL RDW Std Deviation (28.0-62.0) fl RDW Coeff of Dania (11.0-15.0) % Plt Count (150-400) K/uL MPV (7.40-12.00) fL Neut % (Auto) (48.0-80.0) % Lymph % (Auto) (16.0-40.0) % Dundy % (Auto) (0.0-15.0) % Eos % (Auto) (0.0-7.0) % Baso % (Auto) (0.0-1.5) % Neut # (Auto) (1.4-5.7) K/uL Lymph # (Auto) (0.6-2.4) K/uL Dundy # (Auto) (0.0-0.8) K/uL Eos # (Auto) (0.0-0.7) K/uL Baso # (Auto) (0.0-0.1) K/uL Nucleated RBC % /100WBC Nucleated RBCs # K/uL Sodium (136-148) mmol/L Potassium (3.5-5.1) mmol/L Chloride (98-107) mmol/L Carbon Dioxide (21.0-32.0) mmol/L BUN (7.0-18.0) mg/dL Creatinine (0.8-1.3) mg/dL Est Cr Clr Drug Dosing mL/min Estimated GFR (MDRD) ml/min Glucose (74-106) mg/dL POC Glucose 402 H 367 H (60-110) mg/dL Calcium (8.5-10.1) mg/dL Phosphorus (2.6-4.7) mg/dL Urine Color YELLOW Urine Appearance HAZY Urine pH 6.0 (5.0-8.0) Ur Specific Wilber 1.025 (1.001-1.035) Urine Protein 100 (NEGATIVE) mg/dL Urine Glucose (UA) 500 H (NEGATIVE) mg/dL Urine Ketones NEGATIVE (NEGATIVE) mg/dL Urine Occult Blood MODERATE (NEGATIVE) Urine Nitrite NEGATIVE (NEGATIVE) Urine Bilirubin NEGATIVE (NEGATIVE) Urine Urobilinogen 0.2 (<2.0) EU/dL Ur Leukocyte Esterase NEGATIVE (NEGATIVE) Urine RBC 5-7 (0-2/HPF) Urine WBC 1-2 (0-5/HPF) Ur Epithelial Cells RARE (NONE-FEW) Urine Bacteria FEW (NEGATIVE) Ur Random Creatinine mg/dL Ur Random Microalbumin (<20) mg/L Ur Random Sodium (40.0-220.0) mmol/L Vancomycin Trough (5.0-10.0) ug/mL Crossmatch 01/23/18 01/23/18 01/23/18 Range/Units 22:56 22:56 23:01 WBC (4.0-11.0) K/uL RBC (4.50-5.90) M/uL Hgb (13.0-17.0) g/dL Hct (38.0-50.0) % MCV (80.0-98.0) fL MCH (27.0-32.0) pg MCHC (31.0-37.0) g/dL RDW Std Deviation (28.0-62.0) fl RDW Coeff of Dania (11.0-15.0) % Plt Count (150-400) K/uL MPV (7.40-12.00) fL Neut % (Auto) (48.0-80.0) % Lymph % (Auto) (16.0-40.0) % Dundy % (Auto) (0.0-15.0) % Eos % (Auto) (0.0-7.0) % Baso % (Auto) (0.0-1.5) % Neut # (Auto) (1.4-5.7) K/uL Lymph # (Auto) (0.6-2.4) K/uL Dundy # (Auto) (0.0-0.8) K/uL Eos # (Auto) (0.0-0.7) K/uL Baso # (Auto) (0.0-0.1) K/uL Nucleated RBC % /100WBC Nucleated RBCs # K/uL Sodium (136-148) mmol/L Potassium (3.5-5.1) mmol/L Chloride (98-107) mmol/L Carbon Dioxide (21.0-32.0) mmol/L BUN (7.0-18.0) mg/dL Creatinine (0.8-1.3) mg/dL Est Cr Clr Drug Dosing mL/min Estimated GFR (MDRD) ml/min Glucose (74-106) mg/dL POC Glucose (60-110) mg/dL Calcium (8.5-10.1) mg/dL Phosphorus (2.6-4.7) mg/dL Urine Color Urine Appearance Urine pH (5.0-8.0) Ur Specific Wilber (1.001-1.035) Urine Protein (NEGATIVE) mg/dL Urine Glucose (UA) (NEGATIVE) mg/dL Urine Ketones (NEGATIVE) mg/dL Urine Occult Blood (NEGATIVE) Urine Nitrite (NEGATIVE) Urine Bilirubin (NEGATIVE) Urine Urobilinogen (<2.0) EU/dL Ur Leukocyte Esterase (NEGATIVE) Urine RBC (0-2/HPF) Urine WBC (0-5/HPF) Ur Epithelial Cells (NONE-FEW) Urine Bacteria (NEGATIVE) Ur Random Creatinine 73.0 mg/dL Ur Random Microalbumin 100 (<20) mg/L Ur Random Sodium 53.0 (40.0-220.0) mmol/L Vancomycin Trough 16.7 H (5.0-10.0) ug/mL Crossmatch 01/23/18 01/24/18 01/24/18 Range/Units 23:01 05:31 06:08 WBC (4.0-11.0) K/uL RBC (4.50-5.90) M/uL Hgb (13.0-17.0) g/dL Hct (38.0-50.0) % MCV (80.0-98.0) fL MCH (27.0-32.0) pg MCHC (31.0-37.0) g/dL RDW Std Deviation (28.0-62.0) fl RDW Coeff of Dania (11.0-15.0) % Plt Count (150-400) K/uL MPV (7.40-12.00) fL Neut % (Auto) (48.0-80.0) % Lymph % (Auto) (16.0-40.0) % Dundy % (Auto) (0.0-15.0) % Eos % (Auto) (0.0-7.0) % Baso % (Auto) (0.0-1.5) % Neut # (Auto) (1.4-5.7) K/uL Lymph # (Auto) (0.6-2.4) K/uL Dundy # (Auto) (0.0-0.8) K/uL Eos # (Auto) (0.0-0.7) K/uL Baso # (Auto) (0.0-0.1) K/uL Nucleated RBC % /100WBC Nucleated RBCs # K/uL Sodium 135 L (136-148) mmol/L Potassium 5.5 H (3.5-5.1) mmol/L Chloride 104 (98-107) mmol/L Carbon Dioxide 26.3 (21.0-32.0) mmol/L BUN 37 H (7.0-18.0) mg/dL Creatinine 1.9 H (0.8-1.3) mg/dL Est Cr Clr Drug Dosing 56.33 mL/min Estimated GFR (MDRD) 41.6 ml/min Glucose 265 H (74-106) mg/dL POC Glucose 42 L (60-110) mg/dL Calcium 8.4 L (8.5-10.1) mg/dL Phosphorus 5.5 H 5.7 H (2.6-4.7) mg/dL Urine Color Urine Appearance Urine pH (5.0-8.0) Ur Specific Wilber (1.001-1.035) Urine Protein (NEGATIVE) mg/dL Urine Glucose (UA) (NEGATIVE) mg/dL Urine Ketones (NEGATIVE) mg/dL Urine Occult Blood (NEGATIVE) Urine Nitrite (NEGATIVE) Urine Bilirubin (NEGATIVE) Urine Urobilinogen (<2.0) EU/dL Ur Leukocyte Esterase (NEGATIVE) Urine RBC (0-2/HPF) Urine WBC (0-5/HPF) Ur Epithelial Cells (NONE-FEW) Urine Bacteria (NEGATIVE) Ur Random Creatinine mg/dL Ur Random Microalbumin (<20) mg/L Ur Random Sodium (40.0-220.0) mmol/L Vancomycin Trough (5.0-10.0) ug/mL Crossmatch 01/24/18 01/24/18 01/24/18 Range/Units 06:08 06:08 06:46 WBC 19.45 H (4.0-11.0) K/uL RBC 4.05 L (4.50-5.90) M/uL Hgb 9.3 L (13.0-17.0) g/dL Hct 28.2 L (38.0-50.0) % MCV 69.6 L (80.0-98.0) fL MCH 23.0 L (27.0-32.0) pg MCHC 33.0 (31.0-37.0) g/dL RDW Std Deviation 49.2 (28.0-62.0) fl RDW Coeff of Dania 19 H (11.0-15.0) % Plt Count 488 H (150-400) K/uL MPV 9.00 (7.40-12.00) fL Neut % (Auto) 75.9 (48.0-80.0) % Lymph % (Auto) 13.7 L (16.0-40.0) % Dundy % (Auto) 6.8 (0.0-15.0) % Eos % (Auto) 3.3 (0.0-7.0) % Baso % (Auto) 0.3 (0.0-1.5) % Neut # (Auto) 14.8 H (1.4-5.7) K/uL Lymph # (Auto) 2.7 H (0.6-2.4) K/uL Dundy # (Auto) 1.3 H (0.0-0.8) K/uL Eos # (Auto) 0.7 (0.0-0.7) K/uL Baso # (Auto) 0.1 (0.0-0.1) K/uL Nucleated RBC % 0.0 /100WBC Nucleated RBCs # 0 K/uL Sodium 140 (136-148) mmol/L Potassium 4.6 (3.5-5.1) mmol/L Chloride 105 (98-107) mmol/L Carbon Dioxide 26.3 (21.0-32.0) mmol/L BUN 33 H (7.0-18.0) mg/dL Creatinine 1.6 H (0.8-1.3) mg/dL Est Cr Clr Drug Dosing 66.89 mL/min Estimated GFR (MDRD) 50.7 ml/min Glucose 73 L (74-106) mg/dL POC Glucose 92 (60-110) mg/dL Calcium 8.4 L (8.5-10.1) mg/dL Phosphorus (2.6-4.7) mg/dL Urine Color Urine Appearance Urine pH (5.0-8.0) Ur Specific Wilber (1.001-1.035) Urine Protein (NEGATIVE) mg/dL Urine Glucose (UA) (NEGATIVE) mg/dL Urine Ketones (NEGATIVE) mg/dL Urine Occult Blood (NEGATIVE) Urine Nitrite (NEGATIVE) Urine Bilirubin (NEGATIVE) Urine Urobilinogen (<2.0) EU/dL Ur Leukocyte Esterase (NEGATIVE) Urine RBC (0-2/HPF) Urine WBC (0-5/HPF) Ur Epithelial Cells (NONE-FEW) Urine Bacteria (NEGATIVE) Ur Random Creatinine mg/dL Ur Random Microalbumin (<20) mg/L Ur Random Sodium (40.0-220.0) mmol/L Vancomycin Trough (5.0-10.0) ug/mL Crossmatch 01/24/18 01/24/18 01/24/18 Range/Units 08:50 10:32 12:01 WBC (4.0-11.0) K/uL RBC (4.50-5.90) M/uL Hgb (13.0-17.0) g/dL Hct (38.0-50.0) % MCV (80.0-98.0) fL MCH (27.0-32.0) pg MCHC (31.0-37.0) g/dL RDW Std Deviation (28.0-62.0) fl RDW Coeff of Dania (11.0-15.0) % Plt Count (150-400) K/uL MPV (7.40-12.00) fL Neut % (Auto) (48.0-80.0) % Lymph % (Auto) (16.0-40.0) % Dundy % (Auto) (0.0-15.0) % Eos % (Auto) (0.0-7.0) % Baso % (Auto) (0.0-1.5) % Neut # (Auto) (1.4-5.7) K/uL Lymph # (Auto) (0.6-2.4) K/uL Dundy # (Auto) (0.0-0.8) K/uL Eos # (Auto) (0.0-0.7) K/uL Baso # (Auto) (0.0-0.1) K/uL Nucleated RBC % /100WBC Nucleated RBCs # K/uL Sodium (136-148) mmol/L Potassium (3.5-5.1) mmol/L Chloride (98-107) mmol/L Carbon Dioxide (21.0-32.0) mmol/L BUN (7.0-18.0) mg/dL Creatinine (0.8-1.3) mg/dL Est Cr Clr Drug Dosing mL/min Estimated GFR (MDRD) ml/min Glucose (74-106) mg/dL POC Glucose 85 144 H 141 H (60-110) mg/dL Calcium (8.5-10.1) mg/dL Phosphorus (2.6-4.7) mg/dL Urine Color Urine Appearance Urine pH (5.0-8.0) Ur Specific Wilber (1.001-1.035) Urine Protein (NEGATIVE) mg/dL Urine Glucose (UA) (NEGATIVE) mg/dL Urine Ketones (NEGATIVE) mg/dL Urine Occult Blood (NEGATIVE) Urine Nitrite (NEGATIVE) Urine Bilirubin (NEGATIVE) Urine Urobilinogen (<2.0) EU/dL Ur Leukocyte Esterase (NEGATIVE) Urine RBC (0-2/HPF) Urine WBC (0-5/HPF) Ur Epithelial Cells (NONE-FEW) Urine Bacteria (NEGATIVE) Ur Random Creatinine mg/dL Ur Random Microalbumin (<20) mg/L Ur Random Sodium (40.0-220.0) mmol/L Vancomycin Trough (5.0-10.0) ug/mL Crossmatch Peter Results Last 24 Hours: Microbiology 01/20/18 17:17 Aerobic Blood Culture - Preliminary Blood - Venous - Lab Draw NO GROWTH AFTER 3 DAYS Anaerobic Blood Culture - Preliminary NO GROWTH AFTER 3 DAYS 01/20/18 17:06 Aerobic Blood Culture - Preliminary Blood - Venous NO GROWTH AFTER 3 DAYS Anaerobic Blood Culture - Preliminary NO GROWTH AFTER 3 DAYS 01/23/18 14:30 Stool Occult Blood (PETER) - Final Stool / Feces NEGATIVE OCCULT BLOOD Med Orders - Current: Current Medications Acetaminophen (Tylenol) 650 mg PO Q4H PRN PRN Reason: Pain (mild 1-3) Amlodipine Besylate (Norvasc) 10 mg PO DAILY [facility] Last Admin: 01/24/18 08:45 Dose: 10 mg Docusate Sodium (Colace) 100 mg PO BID PRN PRN Reason: Constipation Doxazosin Mesylate (Cardura) 2 mg PO DAILY [facility] Last Admin: 01/24/18 08:46 Dose: 2 mg Ferrous Sulfate (Ferrous Sulfate) 325 mg PO TIDMEALS [facility] Last Admin: 01/24/18 12:21 Dose: 325 mg Vancomycin HCl 1 gm/ Sodium (Chloride) 250 mls @ 166.667 mls/hr IV Q12H [facility] Last Admin: 01/24/18 10:25 Dose: 166.667 mls/hr Cefepime HCl 1 gm/ Premix 50 mls @ 100 mls/hr IV Q8H [facility] Last Admin: 01/24/18 08:41 Dose: 100 mls/hr Insulin Aspart (Novolog) 0 unit SUBCUT TIDAC [facility]; Protocol Last Admin: 01/24/18 12:07 Dose: Not Given Insulin Aspart (Novolog) 0 unit SUBCUT TIDAC [facility] Last Admin: 01/24/18 13:30 Dose: Not Given Insulin Aspart (Novolog) 10 unit SUBCUT ONETIME ONE Stop: 01/24/18 20:01 Last Admin: 01/23/18 20:04 Dose: 10 units Insulin Glargine (Lantus Solostar) 30 units SUBCUT BEDTIME [facility] Last Admin: 01/23/18 21:28 Dose: 30 units Ondansetron HCl (Zofran) 4 mg IVPUSH Q4H PRN PRN Reason: Pain Last Admin: 01/24/18 09:10 Dose: 4 mg Oxycodone HCl (Oxycodone) 5 mg PO Q4H PRN PRN Reason: Pain (moderate 4-6) Last Admin: 01/23/18 23:42 Dose: 5 mg Pantoprazole Sodium (Protonix) 40 mg PO ACBREAKFAST [facility] Last Admin: 01/24/18 06:47 Dose: 40 mg Sodium Chloride (Saline Flush) 2.5 ml FLUSH ASDIRECTED PRN PRN Reason: Keep Vein Open Torsemide (Demadex) 20 mg PO DAILY [facility] Last Admin: 01/24/18 08:46 Dose: 20 mg Vancomycin HCl (Pharmacy To Dose - Vancomycin) 1 dose .XX ASDIRECTED [facility] Discontinued Medications Amlodipine Besylate (Norvasc) 10 mg PO DAILY [facility] Hydralazine HCl (Apresoline) 10 mg IVPUSH ONETIME ONE Stop: 01/21/18 01:35 Last Admin: 01/21/18 01:52 Dose: 10 mg Sodium Chloride (Normal Saline) 1,000 mls @ 100 mls/hr IV ASDIRECTED [facility] Last Infusion: 01/21/18 08:40 Dose: 100 mls/hr Vancomycin HCl 1,250 mg/ (Sodium Chloride) 250 mls @ 166.667 mls/hr IV Q12H [facility] Last Admin: 01/22/18 08:09 Dose: Not Given Sodium Chloride (Normal Saline) 1,000 mls @ 75 mls/hr IV .BOLUS ONE Stop: 01/24/18 08:20 Last Admin: 01/23/18 19:28 Dose: 75 mls/hr Insulin Aspart (Novolog) 0 unit SUBCUT TIDAC [facility]; Protocol Last Admin: 01/21/18 12:11 Dose: Not Given Insulin Aspart (Novolog) 0 unit SUBCUT TIDAC [facility] Last Admin: 01/21/18 08:15 Dose: 6 units Insulin Aspart (Novolog) 0 unit SUBCUT TIDAC [facility] Last Admin: 01/21/18 12:12 Dose: Not Given Insulin Aspart (Novolog) 10 unit SUBCUT ONETIME ONE Stop: 01/22/18 06:31 Last Admin: 01/22/18 07:14 Dose: 10 units Insulin Glargine (Lantus Solostar) 42 units SUBCUT BEDTIME [facility] Last Admin: 01/20/18 21:35 Dose: 42 units Insulin Glargine (Lantus Solostar) 35 units SUBCUT BEDTIME MICHAEL Insulin Glargine (Lantus Solostar) 25 units SUBCUT BEDTIME MICHAEL Insulin Human Regular (Novolin R) 10 unit IVPUSH ONETIME ONE; Protocol Stop: 01/22/18 06:26 Last Admin: 01/22/18 07:24 Dose: 10 units Sodium Polystyrene Sulfonate (Kayexalate) 15 gm PO ONETIME ONE Stop: 01/23/18 09:44 Last Admin: 01/23/18 10:42 Dose: 15 gm Sodium Polystyrene Sulfonate (Kayexalate) 45 gm PO NOW ONE Stop: 01/23/18 18:17 Last Admin: 01/23/18 19:27 Dose: 45 gm Sodium Polystyrene Sulfonate (Kayexalate) Confirm Administered Dose 30 gm .ROUTE .STK-MED ONE Stop: 01/23/18 19:37 Last Admin: 01/23/18 19:52 Dose: Not Given - Exam General: Alert, Oriented Cardiovascular: Regular Rate, Regular Rhythm GI/Abdominal Exam: Soft, Non-Tender Extremities: Pedal Edema (+1 right, with necrotic little toe) - Problem List Review Problem List Initiated/Reviewed/Updated: Yes - Plan Plan:: 32 yo male admitted with Diabetic Foot Infection, 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 English plans to take patient to OR thursday
[2018-01-24] MEDS: Insulin Aspart 100 Units/ML 3 ML Pen SUBCUT ONE (19:55)
[2018-01-24] MEDS: Insulin Glargine,Human Rec. Analog 100 Units/ML 3 ML Pen SUBCUT SCH (21:58)
[2018-01-24] MEDS ORDERED: Sodium Chloride 0.9% 0 ML ONE (22:23)
[2018-01-24] MEDS: oxyCODONE 5 MG Tab PO PRN (22:27)
[2018-01-24] MEDS ORDERED: Lactated Ringers 1,000 ML IV SCH (23:30)
[2018-01-25] MEDS: Cefepime 1 GM in Premix Bag 1 BAG IV SCH ×2 (00:18→08:19)
[2018-01-25] MEDS: Insulin Aspart 100 Units/ML 3 ML Pen SUBCUT SCH ×6 (06:31→17:23)
[2018-01-25] MEDS: Pantoprazole 40 MG Tab.CR PO SCH (06:36)
--- NOTE | 2018-01-25 07:58 | PCM.PN ---
- General Info Date of Service: 01/25/18 Admission Dx/Problem (Free Text): Admission Diagnosis/Problem Admission Diagnosis/Problem Leukocytosis, necrotic fifth toe right foot Subjective Update: Feeling hypoglycemic this morning, BS noted to be 40. No other concerns. Eager for surgery. Waqas did become unresponsive due to hypoglycemia this morning, I was at bedside throughout. Amp D50 was pushed, he became alert and oriented. BS improved to 158. Functional Status: Reports: Pain Controlled, Ambulating, Urinating - Review of Systems General: Reports: No Symptoms. Denies: Fever, Weakness, Fatigue Pulmonary: Reports: No Symptoms. Denies: Shortness of Breath Cardiovascular: Reports: No Symptoms. Denies: Chest Pain Gastrointestinal: Reports: No Symptoms. Denies: Abdominal Pain, Nausea, Vomiting Genitourinary: Reports: No Symptoms. Denies: Dysuria, Frequency, Burning Musculoskeletal: Reports: Foot Pain Neurological: Reports: No Symptoms Psychiatric: Reports: No Symptoms - Patient Data Vitals - Most Recent: Last Vital Signs Temp 99.4 F 01/25/18 04:00 Pulse 106 H 01/25/18 04:00 Resp 16 01/25/18 04:00 BP 169/88 H 01/25/18 04:00 Pulse Ox 97 01/25/18 04:00 Weight - Most Recent: 83.053 kg I&O - Last 24 Hours: Intake & Output 01/24/18 01/25/18 01/25/18 22:59 06:59 14:59 Intake Total 1050 1355 Output Total 2800 1200 Balance -1750 155 Lab Results Last 24 Hours: Laboratory Results - last 24 hr 01/24/18 01/24/18 01/24/18 Range/Units 06:08 08:50 10:32 WBC (4.0-11.0) K/uL RBC (4.50-5.90) M/uL Hgb (13.0-17.0) g/dL Hct (38.0-50.0) % MCV (80.0-98.0) fL MCH (27.0-32.0) pg MCHC (31.0-37.0) g/dL RDW Std Deviation (28.0-62.0) fl RDW Coeff of Dania (11.0-15.0) % Plt Count (150-400) K/uL MPV (7.40-12.00) fL Neut % (Auto) (48.0-80.0) % Lymph % (Auto) (16.0-40.0) % [place] % (Auto) (0.0-15.0) % Eos % (Auto) (0.0-7.0) % Baso % (Auto) (0.0-1.5) % Neut # (Auto) (1.4-5.7) K/uL Lymph # (Auto) (0.6-2.4) K/uL [place] # (Auto) (0.0-0.8) K/uL Eos # (Auto) (0.0-0.7) K/uL Baso # (Auto) (0.0-0.1) K/uL Nucleated RBC % /100WBC Nucleated RBCs # K/uL Sodium 140 (136-148) mmol/L Potassium 4.6 (3.5-5.1) mmol/L Chloride 105 (98-107) mmol/L Carbon Dioxide 26.3 (21.0-32.0) mmol/L BUN 33 H (7.0-18.0) mg/dL Creatinine 1.6 H (0.8-1.3) mg/dL Est Cr Clr Drug Dosing 66.89 mL/min Estimated GFR (MDRD) 50.7 ml/min Glucose 73 L (74-106) mg/dL POC Glucose 85 144 H (60-110) mg/dL Calcium 8.4 L (8.5-10.1) mg/dL Phosphorus (2.6-4.7) mg/dL 01/24/18 01/24/18 01/24/18 Range/Units 12:01 16:28 19:21 WBC (4.0-11.0) K/uL RBC (4.50-5.90) M/uL Hgb (13.0-17.0) g/dL Hct (38.0-50.0) % MCV (80.0-98.0) fL MCH (27.0-32.0) pg MCHC (31.0-37.0) g/dL RDW Std Deviation (28.0-62.0) fl RDW Coeff of Dnaia (11.0-15.0) % Plt Count (150-400) K/uL MPV (7.40-12.00) fL Neut % (Auto) (48.0-80.0) % Lymph % (Auto) (16.0-40.0) % [place] % (Auto) (0.0-15.0) % Eos % (Auto) (0.0-7.0) % Baso % (Auto) (0.0-1.5) % Neut # (Auto) (1.4-5.7) K/uL Lymph # (Auto) (0.6-2.4) K/uL [place] # (Auto) (0.0-0.8) K/uL Eos # (Auto) (0.0-0.7) K/uL Baso # (Auto) (0.0-0.1) K/uL Nucleated RBC % /100WBC Nucleated RBCs # K/uL Sodium (136-148) mmol/L Potassium (3.5-5.1) mmol/L Chloride (98-107) mmol/L Carbon Dioxide (21.0-32.0) mmol/L BUN (7.0-18.0) mg/dL Creatinine (0.8-1.3) mg/dL Est Cr Clr Drug Dosing mL/min Estimated GFR (MDRD) ml/min Glucose (74-106) mg/dL POC Glucose 141 H 223 H 159 H (60-110) mg/dL Calcium (8.5-10.1) mg/dL Phosphorus (2.6-4.7) mg/dL 01/24/18 01/25/18 01/25/18 Range/Units 20:55 05:42 05:42 WBC 20.38 H (4.0-11.0) K/uL RBC 4.19 L (4.50-5.90) M/uL Hgb 9.6 L (13.0-17.0) g/dL Hct 29.4 L (38.0-50.0) % MCV 70.2 L (80.0-98.0) fL MCH 22.9 L (27.0-32.0) pg MCHC 32.7 (31.0-37.0) g/dL RDW Std Deviation 49.1 (28.0-62.0) fl RDW Coeff of Dania 20 H (11.0-15.0) % Plt Count 466 H (150-400) K/uL MPV 9.10 (7.40-12.00) fL Neut % (Auto) 76.9 (48.0-80.0) % Lymph % (Auto) 13.3 L (16.0-40.0) % [place] % (Auto) 6.8 (0.0-15.0) % Eos % (Auto) 2.8 (0.0-7.0) % Baso % (Auto) 0.2 (0.0-1.5) % Neut # (Auto) 15.7 H (1.4-5.7) K/uL Lymph # (Auto) 2.7 H (0.6-2.4) K/uL [place] # (Auto) 1.4 H (0.0-0.8) K/uL Eos # (Auto) 0.6 (0.0-0.7) K/uL Baso # (Auto) 0.0 (0.0-0.1) K/uL Nucleated RBC % 0.0 /100WBC Nucleated RBCs # 0 K/uL Sodium (136-148) mmol/L Potassium (3.5-5.1) mmol/L Chloride (98-107) mmol/L Carbon Dioxide (21.0-32.0) mmol/L BUN (7.0-18.0) mg/dL Creatinine (0.8-1.3) mg/dL Est Cr Clr Drug Dosing mL/min Estimated GFR (MDRD) ml/min Glucose (74-106) mg/dL POC Glucose 104 (60-110) mg/dL Calcium (8.5-10.1) mg/dL Phosphorus 5.3 H (2.6-4.7) mg/dL 01/25/18 Range/Units 06:10 WBC (4.0-11.0) K/uL RBC (4.50-5.90) M/uL Hgb (13.0-17.0) g/dL Hct (38.0-50.0) % MCV (80.0-98.0) fL MCH (27.0-32.0) pg MCHC (31.0-37.0) g/dL RDW Std Deviation (28.0-62.0) fl RDW Coeff of Dania (11.0-15.0) % Plt Count (150-400) K/uL MPV (7.40-12.00) fL Neut % (Auto) (48.0-80.0) % Lymph % (Auto) (16.0-40.0) % [place] % (Auto) (0.0-15.0) % Eos % (Auto) (0.0-7.0) % Baso % (Auto) (0.0-1.5) % Neut # (Auto) (1.4-5.7) K/uL Lymph # (Auto) (0.6-2.4) K/uL [place] # (Auto) (0.0-0.8) K/uL Eos # (Auto) (0.0-0.7) K/uL Baso # (Auto) (0.0-0.1) K/uL Nucleated RBC % /100WBC Nucleated RBCs # K/uL Sodium (136-148) mmol/L Potassium (3.5-5.1) mmol/L Chloride (98-107) mmol/L Carbon Dioxide (21.0-32.0) mmol/L BUN (7.0-18.0) mg/dL Creatinine (0.8-1.3) mg/dL Est Cr Clr Drug Dosing mL/min Estimated GFR (MDRD) ml/min Glucose (74-106) mg/dL POC Glucose 83 (60-110) mg/dL Calcium (8.5-10.1) mg/dL Phosphorus (2.6-4.7) mg/dL Peter Results Last 24 Hours: Microbiology 01/20/18 17:17 Aerobic Blood Culture - Preliminary Blood - Venous - Lab Draw NO GROWTH AFTER 4 DAYS Anaerobic Blood Culture - Preliminary NO GROWTH AFTER 4 DAYS 01/20/18 17:06 Aerobic Blood Culture - Preliminary Blood - Venous NO GROWTH AFTER 4 DAYS Anaerobic Blood Culture - Preliminary NO GROWTH AFTER 4 DAYS Med Orders - Current: Current Medications Acetaminophen (Tylenol) 650 mg PO Q4H PRN PRN Reason: Pain (mild 1-3) Amlodipine Besylate (Norvasc) 10 mg PO DAILY [facility] Last Admin: 01/24/18 08:45 Dose: 10 mg Docusate Sodium (Colace) 100 mg PO BID PRN PRN Reason: Constipation Doxazosin Mesylate (Cardura) 2 mg PO DAILY [facility] Last Admin: 01/24/18 08:46 Dose: 2 mg Ferrous Sulfate (Ferrous Sulfate) 325 mg PO TIDMEALS [facility] [place] Last Admin: 01/24/18 17:17 Dose: 325 mg Vancomycin HCl 1 gm/ Sodium (Chloride) 250 mls @ 166.667 mls/hr IV Q12H [facility] [place] Last Admin: 01/24/18 22:37 Dose: 166.667 mls/hr Cefepime HCl 1 gm/ Premix 50 mls @ 100 mls/hr IV Q8H [facility] [place] Last Admin: 01/25/18 00:18 Dose: 100 mls/hr Lactated Ringer's (Ringers, Lactated) 1,000 mls @ 125 mls/hr IV ASDIRECTED [facility] [place] Last Admin: 01/25/18 04:23 Dose: 125 mls/hr Insulin Aspart (Novolog) 0 unit SUBCUT TIDAC [facility]; Protocol Last Admin: 01/25/18 06:31 Dose: Not Given Insulin Aspart (Novolog) 0 unit SUBCUT TIDAC [facility] [place] Last Admin: 01/25/18 06:33 Dose: Not Given Insulin Glargine (Lantus Solostar) 30 units SUBCUT BEDTIME [facility] Last Admin: 01/24/18 21:58 Dose: 30 units Ondansetron HCl (Zofran) 4 mg IVPUSH Q4H PRN PRN Reason: Pain Last Admin: 01/24/18 09:10 Dose: 4 mg Oxycodone HCl (Oxycodone) 5 mg PO Q4H PRN PRN Reason: Pain (moderate 4-6) Last Admin: 01/24/18 22:27 Dose: 5 mg Pantoprazole Sodium (Protonix) 40 mg PO ACBREAKFAST [facility] [place] Last Admin: 01/25/18 06:36 Dose: 40 mg Sodium Chloride (Saline Flush) 2.5 ml FLUSH ASDIRECTED PRN PRN Reason: Keep Vein Open Torsemide (Demadex) 20 mg PO DAILY [facility] [place] Last Admin: 01/24/18 08:46 Dose: 20 mg Vancomycin HCl (Pharmacy To Dose - Vancomycin) 1 dose .XX ASDIRECTED [facility] Discontinued Medications Amlodipine Besylate (Norvasc) 10 mg PO DAILY [facility] [place] Hydralazine HCl (Apresoline) 10 mg IVPUSH ONETIME ONE Stop: 01/21/18 01:35 Last Admin: 01/21/18 01:52 Dose: 10 mg Sodium Chloride (Normal Saline) 1,000 mls @ 100 mls/hr IV ASDIRECTED [facility] Last Infusion: 01/21/18 08:40 Dose: 100 mls/hr Vancomycin HCl 1,250 mg/ (Sodium Chloride) 250 mls @ 166.667 mls/hr IV Q12H [facility] Last Admin: 01/22/18 08:09 Dose: Not Given Sodium Chloride (Normal Saline) 1,000 mls @ 75 mls/hr IV .BOLUS ONE Stop: 01/24/18 08:20 Last Admin: 01/23/18 19:28 Dose: 75 mls/hr Sodium Chloride (Normal Saline) Confirm Administered Dose 250 mls @ as directed .ROUTE .STK-MED ONE Stop: 01/24/18 22:24 Last Admin: 01/25/18 00:01 Dose: Not Given Insulin Aspart (Novolog) 0 unit SUBCUT TIDAC [facility]; Protocol Last Admin: 01/21/18 12:11 Dose: Not Given Insulin Aspart (Novolog) 0 unit SUBCUT TIDAC [facility] [place] Last Admin: 01/21/18 08:15 Dose: 6 units Insulin Aspart (Novolog) 0 unit SUBCUT TIDAC [facility] [place] Last Admin: 01/21/18 12:12 Dose: Not Given Insulin Aspart (Novolog) 10 unit SUBCUT ONETIME ONE Stop: 01/22/18 06:31 Last Admin: 01/22/18 07:14 Dose: 10 units Insulin Aspart (Novolog) 10 unit SUBCUT ONETIME ONE Stop: 01/24/18 20:01 Last Admin: 01/24/18 19:55 Dose: Not Given Insulin Glargine (Lantus Solostar) 42 units SUBCUT BEDTIME [facility] [place] Last Admin: 01/20/18 21:35 Dose: 42 units Insulin Glargine (Lantus Solostar) 35 units SUBCUT BEDTIME [facility] Insulin Glargine (Lantus Solostar) 25 units SUBCUT BEDTIME [facility] Insulin Human Regular (Novolin R) 10 unit IVPUSH ONETIME ONE; Protocol Stop: 01/22/18 06:26 Last Admin: 01/22/18 07:24 Dose: 10 units Sodium Polystyrene Sulfonate (Kayexalate) 15 gm PO ONETIME ONE Stop: 01/23/18 09:44 Last Admin: 01/23/18 10:42 Dose: 15 gm Sodium Polystyrene Sulfonate (Kayexalate) 45 gm PO NOW ONE Stop: 01/23/18 18:17 Last Admin: 01/23/18 19:27 Dose: 45 gm Sodium Polystyrene Sulfonate (Kayexalate) Confirm Administered Dose 30 gm .ROUTE .STK-MED ONE Stop: 01/23/18 19:37 Last Admin: 01/23/18 19:52 Dose: Not Given - Exam General: Alert, Oriented, Cooperative, No Acute Distress Lungs: Clear to Auscultation, Normal Respiratory Effort Cardiovascular: Regular Rate, Regular Rhythm GI/Abdominal Exam: Normal Bowel Sounds, Soft, Non-Tender, No Organomegaly, No Distention, No Abnormal Bruit, No Mass, Pelvis Stable Extremities: Normal Inspection, Normal Range of Motion, Pedal Edema (+2 pitting edema to R LE. ) Wound/Incisions: Dressing Dry and Intact (5th toe R foot. Foul smelling. Dressing remained intact. ), Erythema Improving Psy/Mental Status: Alert, Normal Affect, Normal Mood - Problem List & Annotations (1) Diabetic foot ulcer SNOMED Code(s): 230852673 Code(s): E11.621 - TYPE 2 DIABETES MELLITUS WITH FOOT ULCER; L97.509 - NON- PRESSURE CHRONIC ULCER OTH PRT UNSP FOOT W UNSP SEVERITY Status: Acute Current Visit: No Qualifiers: Diabetic foot ulcer location: toe Diabetes mellitus type: type 1 Laterality: right Non-pressure ulcer stage: with necrosis of muscle Qualified Code(s): E10.621 - Type 1 diabetes mellitus with foot ulcer; L97.513 - Non-pressure chronic ulcer of other part of right foot with necrosis of muscle (2) History of GI bleed SNOMED Code(s): 025670058 Code(s): Z87.19 - PERSONAL HISTORY OF OTHER DISEASES OF THE DIGESTIVE SYSTEM Status: Chronic Current Visit: Yes (3) Diabetic gastroparesis SNOMED Code(s): 280342377 Code(s): E11.43 - TYPE 2 DIABETES W DIABETIC AUTONOMIC (POLY)NEUROPATHY; K31.84 - GASTROPARESIS Status: Chronic Current Visit: No (4) Chronic renal insufficiency SNOMED Code(s): 239704473 Code(s): N18.9 - CHRONIC KIDNEY DISEASE, UNSPECIFIED Status: Chronic Current Visit: No (5) Diabetes mellitus type I SNOMED Code(s): 46449772 Code(s): E10.9 - TYPE 1 DIABETES MELLITUS WITHOUT COMPLICATIONS Status: Chronic Current Visit: No Qualifiers: Diabetes mellitus complication status: with kidney complications Diabetes mellitus complication detail: with chronic kidney disease (6) Hypertension SNOMED Code(s): 42775597 Code(s): I10 - ESSENTIAL (PRIMARY) HYPERTENSION Status: Chronic Current Visit: No Qualifiers: Hypertension type: essential hypertension Qualified Code(s): I10 - Essential (primary) hypertension (7) Hx of gastroesophageal reflux (GERD) SNOMED Code(s): 82308311764985 Code(s): Z87.19 - PERSONAL HISTORY OF OTHER DISEASES OF THE DIGESTIVE SYSTEM Status: Chronic Current Visit: Yes (8) Hx MRSA infection SNOMED Code(s): 730456170, 709478219 Code(s): Z86.14 - PERSONAL HISTORY OF METHICILLIN RESIS STAPH INFECTION Status: Chronic Current Visit: Yes (9) Anemia SNOMED Code(s): 021549469 Code(s): D64.9 - ANEMIA, UNSPECIFIED Status: Chronic Current Visit: No Qualifiers: Anemia type: due to chronic kidney disease - Problem List Review Problem List Initiated/Reviewed/Updated: Yes - My Orders Last 24 Hours: My Active Orders 01/25/18 07:56 BMP [BASIC METABOLIC PANEL,BMP] [CHEM] Routine - Plan Plan:: 32 yo male admitted with Diabetic Foot Infection, 5th digit of R foot osteo 1. 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 To OR today for amputation with Dr Egnlish. Continue Cefepime and Vancomycin. BC negative. Encourage bone cultures in OR. 2. DM type 1: BS very labile during stay. Two episodes of hypoglycemia this morning. D5LR started after first episode. IV infiltrated and was on hold for short time and hypoglycemia returned another amp D50 given. Likely secondary to NPO status and he did receive Lantus 30 units last night. Once eating again will continue TIDAC SSI and Lantus dosing. Monitor closely. 3. HTN: Continue PO medications, Norvasc, Cardura, Torsemide. Restart Spironolactone today. 4. Acute on chronic kidney injury: Improving. Continue to Hold Enalapril due to increase in renal function, likely restart in coming days. 5. Anemia: Hgb 9.6 today. Continue Iron supplementation. Monitor after amputation. 6. GERD and hx GI bleeding: No signs of acute bleed currently. No pharmacologic VTE agents due to history. Continue PPI. VTE prophylaxis: SCDs and ambulation. Dispo: 3-4 days pending improvement and surgical intervention.
[2018-01-25] MEDS ORDERED: 50% Dextrose in Water 50 ML Syringe IVPUSH ONE ×2 (08:21→11:56)
[2018-01-25] MEDS ORDERED: Dextrose 5%-Lactated Ringers 1,000 ML IV SCH ×2 (08:45→11:57)
[2018-01-25] MEDS: Ferrous Sulfate 325 MG Tab PO SCH ×3 (09:25→17:06)
[2018-01-25] MEDS: Torsemide 20 MG Tab PO SCH (09:25)
[2018-01-25] MEDS: Doxazosin 2 MG Tab PO SCH (09:25)
[2018-01-25] MEDS: amLODIPine 5 MG Tab PO SCH (09:26)
[2018-01-25] MEDS ORDERED: Propofol 200 MG/20 ML SDV ONE (11:46)
[2018-01-25] MEDS ORDERED: Lidocaine 2% 5 ML SDV ONE (11:46)
[2018-01-25] MEDS ORDERED: Ondansetron 4 MG/2 ML SDV ONE (11:47)
[2018-01-25] MEDS ORDERED: fentaNYL 100 MCG/2 ML SDV ONE (11:47)
[2018-01-25] MEDS ORDERED: Midazolam 1 MG/ML 2 ML SDV ONE (11:47)
--- NOTE | 2018-01-25 11:58 | PCM.PREANE ---
Preanesthetic Assessment - Procedure Proposed Procedure: Amputation of 5th digit, foot - Anesthesia/Transfusion/Family Hx Anesthesia History: Prior Anesthesia Without Reaction Family History of Anesthesia Reaction: No Transfusion History: No Prior Transfusion(s) Intubation History: Unknown - Review of Systems General: Fatigue Pulmonary: No Symptoms Cardiovascular: Other (HTN) Gastrointestinal: No Symptoms Neurological: Pre-Existing Deficit (probably due to DM) - Physical Assessment NPO Status Date: 01/24/18 NPO Status Time: 23:55 Pulse: 110 O2 Sat by Pulse Oximetry: 96 Respiratory Rate: 18 Blood Pressure: 175/111 Temperature: 98.6 F Vital Signs: Last Vital Signs Temp 99.2 F 01/25/18 08:16 Pulse 111 H 01/25/18 08:34 Resp 18 01/25/18 08:34 BP 175/111 H 01/25/18 09:26 Pulse Ox 96 01/25/18 08:34 Height: 5 ft 9 in Weight: 183 lb 1.6 oz ASA Class: 3 Mental Status: Alert & Oriented x3 Dentition: Reports: Normal Dentition Thyro-Mental Finger Breadths: 4 Mouth Opening Finger Breadths: 3 ROM/Head Extension: Full Lungs: Clear to Auscultation, Normal Respiratory Effort Cardiovascular: Regular Rhythm, No Murmurs, Tachycardia - Lab Values: Laboratory Last Values WBC 20.38 K/uL (4.0-11.0) H 01/25/18 05:42 RBC 4.19 M/uL (4.50-5.90) L 01/25/18 05:42 Hgb 9.6 g/dL (13.0-17.0) L 01/25/18 05:42 Hct 29.4 % (38.0-50.0) L 01/25/18 05:42 MCV 70.2 fL (80.0-98.0) L 01/25/18 05:42 MCH 22.9 pg (27.0-32.0) L 01/25/18 05:42 MCHC 32.7 g/dL (31.0-37.0) 01/25/18 05:42 RDW Std Deviation 49.1 fl (28.0-62.0) 01/25/18 05:42 RDW Coeff of Dania 20 % (11.0-15.0) H 01/25/18 05:42 Plt Count 466 K/uL (150-400) H 01/25/18 05:42 MPV 9.10 fL (7.40-12.00) 01/25/18 05:42 Neut % (Auto) 76.9 % (48.0-80.0) 01/25/18 05:42 Lymph % (Auto) 13.3 % (16.0-40.0) L 01/25/18 05:42 [place] % (Auto) 6.8 % (0.0-15.0) 01/25/18 05:42 Eos % (Auto) 2.8 % (0.0-7.0) 01/25/18 05:42 Baso % (Auto) 0.2 % (0.0-1.5) 01/25/18 05:42 Neut # (Auto) 15.7 K/uL (1.4-5.7) H 01/25/18 05:42 Lymph # (Auto) 2.7 K/uL (0.6-2.4) H 01/25/18 05:42 [place] # (Auto) 1.4 K/uL (0.0-0.8) H 01/25/18 05:42 Eos # (Auto) 0.6 K/uL (0.0-0.7) 01/25/18 05:42 Baso # (Auto) 0.0 K/uL (0.0-0.1) 01/25/18 05:42 Nucleated RBC % 0.0 /100WBC 01/25/18 05:42 Nucleated RBCs # 0 K/uL 01/25/18 05:42 Smear Path Review SENT TO PATHOLOGY 01/23/18 02:09 Sodium 138 mmol/L (136-148) 01/25/18 05:30 Potassium 4.9 mmol/L (3.5-5.1) 01/25/18 05:30 Chloride 103 mmol/L (98-107) 01/25/18 05:30 Carbon Dioxide 24.8 mmol/L (21.0-32.0) 01/25/18 05:30 BUN 28 mg/dL (7.0-18.0) H 01/25/18 05:30 Creatinine 1.7 mg/dL (0.8-1.3) H 01/25/18 05:30 Est Cr Clr Drug Dosing 62.96 mL/min 01/25/18 05:30 Estimated GFR (MDRD) 47.2 ml/min 01/25/18 05:30 Glucose 99 mg/dL (74-106) 01/25/18 05:30 POC Glucose 91 mg/dL (60-110) 01/25/18 09:46 Hemoglobin A1c 10.2 % (4.5-6.2) H 01/22/18 04:18 Calcium 9.0 mg/dL (8.5-10.1) 01/25/18 05:30 Phosphorus 5.3 mg/dL (2.6-4.7) H 01/25/18 05:42 Iron 11 ug/dL (50-175) L 01/23/18 10:11 TIBC 167 ug/dL (250-450) L 01/23/18 10:11 % Saturation 6.59 % (20-55) L 01/23/18 10:11 Ferritin 216 ng/mL (26-388) 01/23/18 10:11 Lactate Dehydrogenase 249 U/L (81-234) H 01/23/18 10:11 Urine Color YELLOW 01/23/18 22:56 Urine Appearance HAZY 01/23/18 22:56 Urine pH 6.0 (5.0-8.0) 01/23/18 22:56 Ur Specific [place] 1.025 (1.001-1.035) 01/23/18 22:56 Urine Protein 100 mg/dL (NEGATIVE) 01/23/18 22:56 Urine Glucose (UA) 500 mg/dL (NEGATIVE) H 01/23/18 22:56 Urine Ketones NEGATIVE mg/dL (NEGATIVE) 01/23/18 22:56 Urine Occult Blood MODERATE (NEGATIVE) 01/23/18 22:56 Urine Nitrite NEGATIVE (NEGATIVE) 01/23/18 22:56 Urine Bilirubin NEGATIVE (NEGATIVE) 01/23/18 22:56 Urine Urobilinogen 0.2 EU/dL (<2.0) 01/23/18 22:56 Ur Leukocyte Esterase NEGATIVE (NEGATIVE) 01/23/18 22:56 Urine RBC 5-7 (0-2/HPF) 01/23/18 22:56 Urine WBC 1-2 (0-5/HPF) 01/23/18 22:56 Ur Epithelial Cells RARE (NONE-FEW) 01/23/18 22:56 Urine Bacteria FEW (NEGATIVE) 01/23/18 22:56 Ur Random Creatinine 73.0 mg/dL 01/23/18 22:56 Ur Random Microalbumin 100 mg/L (<20) 01/23/18 22:56 Ur Random Sodium 53.0 mmol/L (40.0-220.0) 01/23/18 22:56 Vancomycin Trough 16.7 ug/mL (5.0-10.0) H 01/23/18 23:01 Blood Type O POSITIVE 01/20/18 17:06 Antibody Screen NEGATIVE 01/20/18 17:06 Cold Antibody Screen POSITIVE 01/20/18 17:06 KATHLEEN, Poly Interpret NEGATIVE (NEGATIVE) 01/23/18 02:09 Crossmatch See Detail 01/20/18 17:06 - Allergies Allergies/Adverse Reactions: Allergies Allergy/AdvReac Type Severity Reaction Status Date / Time shrimp Allergy Severe Other Verified 12/03/17 23:23 iodine Allergy Unknown Anaphylactic Verified 12/03/17 23:23 Shock Penicillins Allergy Unknown Anaphylactic Verified 12/03/17 23:23 Shock gluten Allergy Unknown Muscle Uncoded 12/03/17 23:23 Aches - Blood Blood Available: Yes Product(s) Available: PRBC (3u) - Anesthesia Plan Pre-Op Medication Ordered: None - Acknowledgements Anesthesia Type Planned: General Anesthesia (probably OET instead of LMA) Pt an Appropriate Candidate for the Planned Anesthesia: Yes Alternatives and Risks of Anesthesia Discussed w Pt/Guardian: Yes Pt/Guardian Understands and Agrees with Anesthesia Plan: Yes Additional Comments: sedation with block possible; dependent upon the completed surgical procedure....notes suggest more than the original posting PreAnesthesia Questionnaire - Past Health History Medical/Surgical History: Denies Medical/Surgical History HEENT History: Reports: Impaired Vision Other HEENT History: blind right eye Cardiovascular History: Reports: Hypertension Respiratory History: Reports: None Gastrointestinal History: Reports: Gastritis, GERD, Hiatal Hernia Other Gastrointestinal History: h/o gastric ulcers, h/o hiatal hernia Genitourinary History: Reports: Chronic Renal Insuffiency, Diabetic Nephropathy Musculoskeletal History: Reports: None Neurological History: Reports: Neuropathy, Peripheral Psychiatric History: Reports: Anxiety Endocrine/Metabolic History: Reports: Diabetes, Type I Hematologic History: Reports: Anemia Immunologic History: Reports: None Oncologic (Cancer) History: Reports: None Dermatologic History: Reports: Other (See Below) Other Dermatologic History: diabetic foot ulcers - Infectious Disease History Infectious Disease History: Reports: Chicken Pox Other Infectious Disease History: 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 - Past Surgical History Head Surgeries/Procedures: Reports: None HEENT Surgical History: Reports: None Cardiovascular Surgical History: Reports: None Respiratory Surgical History: Reports: None GI Surgical History: Reports: EGD Male Surgical History: Reports: None Endocrine Surgical History: Reports: None Dermatological Surgical History: Reports: None - SUBSTANCE USE Smoking Status *Q: Former Smoker Second Hand Smoke Exposure: No Recreational Drug Use History: No Recreational Drug Type: Reports: Marijuana/Hashish - HOME MEDS Home Medications: Home Meds Omeprazole Magnesium [Prilosec Otc] 40 mg PO DAILY 07/15/17 [History] Doxazosin [Cardura] 2 mg PO DAILY 09/25/17 [History] Enalapril [Vasotec] 40 mg PO DAILY 09/25/17 [History] Insulin Glargine,Hum.Rec.Anlog [Toujeo Solostar] 45 unit SQ DAILY 09/25/17 [ History] Spironolactone [Aldactone] 25 mg PO DAILY 09/25/17 [History] Torsemide 20 mg PO DAILY 09/25/17 [History] amLODIPine Besylate [Amlodipine Besylate] 10 mg PO DAILY 09/25/17 [History] Insulin Aspart [NovoLOG] 0 unit SUBCUT ASDIRECTED 10/07/17 [History] Ferrous Sulfate 324 mg PO DAILY 01/20/18 [History] Silver Sulfadiazine [Ssd] 20 gm TP DAILY 01/20/18 [History] - CURRENT (IN HOUSE) MEDS Current Meds: Current Medications Acetaminophen (Tylenol) 650 mg PO Q4H PRN PRN Reason: Pain (mild 1-3) Amlodipine Besylate (Norvasc) 10 mg PO DAILY [facility] Last Admin: 01/25/18 09:26 Dose: 10 mg Docusate Sodium (Colace) 100 mg PO BID PRN PRN Reason: Constipation Doxazosin Mesylate (Cardura) 2 mg PO DAILY [facility] Last Admin: 01/25/18 09:25 Dose: 2 mg Ferrous Sulfate (Ferrous Sulfate) 325 mg PO TIDMEALS [facility] Last Admin: 01/25/18 09:25 Dose: 325 mg Vancomycin HCl 1 gm/ Sodium (Chloride) 250 mls @ 166.667 mls/hr IV Q12H [facility] Last Admin: 01/25/18 09:43 Dose: 166.667 mls/hr Cefepime HCl 1 gm/ Premix 50 mls @ 100 mls/hr IV Q8H [facility] Last Admin: 01/25/18 08:19 Dose: 100 mls/hr Dextrose/Lactated Ringer's (Dextrose 5%-Lactated Ringers) 1,000 mls @ 75 mls/ hr IV ASDIRECTED [facility] Last Admin: 01/25/18 09:05 Dose: 75 mls/hr Insulin Aspart (Novolog) 0 unit SUBCUT TIDAC [facility]; Protocol Last Admin: 01/25/18 06:31 Dose: Not Given Insulin Aspart (Novolog) 0 unit SUBCUT TIDAC [facility] Last Admin: 01/25/18 06:33 Dose: Not Given Insulin Glargine (Lantus Solostar) 30 units SUBCUT BEDTIME [facility] Last Admin: 01/24/18 21:58 Dose: 30 units Ondansetron HCl (Zofran) 4 mg IVPUSH Q4H PRN PRN Reason: Pain Last Admin: 01/24/18 09:10 Dose: 4 mg Oxycodone HCl (Oxycodone) 5 mg PO Q4H PRN PRN Reason: Pain (moderate 4-6) Last Admin: 01/24/18 22:27 Dose: 5 mg Pantoprazole Sodium (Protonix) 40 mg PO ACBREAKFAST [facility] Last Admin: 01/25/18 06:36 Dose: 40 mg Sodium Chloride (Saline Flush) 2.5 ml FLUSH ASDIRECTED PRN PRN Reason: Keep Vein Open Torsemide (Demadex) 20 mg PO DAILY [facility] Last Admin: 01/25/18 09:25 Dose: 20 mg Vancomycin HCl (Pharmacy To Dose - Vancomycin) 1 dose .XX ASDIRECTED [facility] Discontinued Medications Amlodipine Besylate (Norvasc) 10 mg PO DAILY [facility] Dextrose/Water (Dextrose 50% In Water) 50 ml IVPUSH ONETIME ONE Stop: 01/25/18 08:22 Last Admin: 01/25/18 08:30 Dose: 50 ml Fentanyl (Sublimaze) Confirm Administered Dose 100 mcg .ROUTE .STK-MED ONE Stop: 01/25/18 11:48 Hydralazine HCl (Apresoline) 10 mg IVPUSH ONETIME ONE Stop: 01/21/18 01:35 Last Admin: 01/21/18 01:52 Dose: 10 mg Sodium Chloride (Normal Saline) 1,000 mls @ 100 mls/hr IV ASDIRECTED [facility] Last Infusion: 01/21/18 08:40 Dose: 100 mls/hr Vancomycin HCl 1,250 mg/ (Sodium Chloride) 250 mls @ 166.667 mls/hr IV Q12H [facility] Last Admin: 01/22/18 08:09 Dose: Not Given Sodium Chloride (Normal Saline) 1,000 mls @ 75 mls/hr IV .BOLUS ONE Stop: 01/24/18 08:20 Last Admin: 01/23/18 19:28 Dose: 75 mls/hr Sodium Chloride (Normal Saline) Confirm Administered Dose 250 mls @ as directed .ROUTE .STK-MED ONE Stop: 01/24/18 22:24 Last Admin: 01/25/18 00:01 Dose: Not Given Lactated Ringer's (Ringers, Lactated) 1,000 mls @ 125 mls/hr IV ASDIRECTED [facility] Last Admin: 01/25/18 04:23 Dose: 125 mls/hr Insulin Aspart (Novolog) 0 unit SUBCUT TIDAC [facility]; Protocol Last Admin: 01/21/18 12:11 Dose: Not Given Insulin Aspart (Novolog) 0 unit SUBCUT TIDAC [facility] Last Admin: 01/21/18 08:15 Dose: 6 units Insulin Aspart (Novolog) 0 unit SUBCUT TIDAC [facility] Last Admin: 01/21/18 12:12 Dose: Not Given Insulin Aspart (Novolog) 10 unit SUBCUT ONETIME ONE Stop: 01/22/18 06:31 Last Admin: 01/22/18 07:14 Dose: 10 units Insulin Aspart (Novolog) 10 unit SUBCUT ONETIME ONE Stop: 01/24/18 20:01 Last Admin: 01/24/18 19:55 Dose: Not Given Insulin Glargine (Lantus Solostar) 42 units SUBCUT BEDTIME [facility] Last Admin: 01/20/18 21:35 Dose: 42 units Insulin Glargine (Lantus Solostar) 35 units SUBCUT BEDTIME [facility] Insulin Glargine (Lantus Solostar) 25 units SUBCUT BEDTIME [facility] Insulin Human Regular (Novolin R) 10 unit IVPUSH ONETIME ONE; Protocol Stop: 01/22/18 06:26 Last Admin: 01/22/18 07:24 Dose: 10 units Lidocaine (Xylocaine-Mpf 2%) Confirm Administered Dose 10 ml .ROUTE .STK-MED ONE Stop: 01/25/18 11:47 Midazolam HCl (Versed 1 Mg/Ml) Confirm Administered Dose 2 mg .ROUTE .STK-MED ONE Stop: 01/25/18 11:48 Ondansetron HCl (Zofran) Confirm Administered Dose 4 mg .ROUTE .STK-MED ONE Stop: 01/25/18 11:48 Propofol (Diprivan 20 Ml) Confirm Administered Dose 400 mg .ROUTE .STK-MED ONE Stop: 01/25/18 11:47 Sodium Polystyrene Sulfonate (Kayexalate) 15 gm PO ONETIME ONE Stop: 01/23/18 09:44 Last Admin: 01/23/18 10:42 Dose: 15 gm Sodium Polystyrene Sulfonate (Kayexalate) 45 gm PO NOW ONE Stop: 01/23/18 18:17 Last Admin: 01/23/18 19:27 Dose: 45 gm Sodium Polystyrene Sulfonate (Kayexalate) Confirm Administered Dose 30 gm .ROUTE .STK-MED ONE Stop: 01/23/18 19:37 Last Admin: 01/23/18 19:52 Dose: Not Given
[2018-01-25] MEDS ORDERED: Bupivacaine 0.5% 30 ML SDV ONE (12:40)
[2018-01-25] MEDS ORDERED: Lidocaine 1% 20 ML MDV ONE (12:43)
[2018-01-25] MEDS ORDERED: fentaNYL 100 MCG/2 ML SDV IVPUSH PRN (13:48)
[2018-01-25] MEDS ORDERED: Nitroglycerin 2% Oint 1 GM UD Packet ONE (14:27)
--- NOTE | 2018-01-25 14:38 | PN ---
Preoperative Progress Note TIME: 12:22 p.m. SURGEON: Andres English DPM. PREOPERATIVE DIAGNOSIS: Necrotic gangrenous right 5th toe. PLANNED PROCEDURE: Amputation of right 5th toe and possible partial resection of 5th metatarsal, right foot. CONSENT: Signed in the chart. ANESTHESIA: To be determined. The patient confirms n.p.o. since midnight. HISTORY AND PHYSICAL: Completed by Dr. Cabrera and the patient has been followed by Dr. Jeffery with no contraindications to surgery. The patient is in-house. MEDICAL HISTORY: Significant for hypertension, gastritis, gastroesophageal reflux disorder, hiatal hernia, chronic renal insufficiency, diabetic nephropathy, peripheral neuropathy, anxiety, type 1 diabetes, anemia, and history of diabetic foot ulcers. MEDICATIONS: The patient takes Prilosec, Cardura, Vasotec, insulin, spironolactone, torsemide, amlodipine, ferrous sulfate. Also, the patient is currently receiving dextrose 5% lactated Ringer as needed due to his low blood sugar and vancomycin 1 g every 12 hours. ALLERGIES: Shrimp, iodine, penicillin. The patient presents for 5th toe right foot amputation today and if necessary, partial resection of 5th metatarsal right foot. No contraindications to surgery noted. No guarantees given or implied. ISHMAEL / ANAY /[id number]
--- NOTE | 2018-01-25 14:42 | PCM.OPNOTE ---
- General Post-Op/Procedure Note Date of Surgery/Procedure: 01/25/18 Operative Procedure(s): amputation of fifth toe right foot Findings: consistent with diagnosis Pre Op Diagnosis: necrotic gangrenous fifth toe right foot Post-Op Diagnosis: necrotic gangrenous fifth toe right foot Anesthesia Technique: General LMA Primary Surgeon: Andres nEglish EBL in mLs: 5 Complications: none Condition: Good Free Text/Narrative:: Intake & Output 01/24/18 01/25/18 01/25/18 22:59 06:59 14:59 Intake Total 1050 1355 200 Output Total 2800 1200 Balance -1750 155 200 3-0 vicryl 0 prolene 4-0 prolene 6 ml of 0.5% marcaine plain injected about surgery site at conclusion of procedure.
--- NOTE | 2018-01-25 15:57 | PCM.POSTAN ---
POST ANESTHESIA ASSESSMENT - MENTAL STATUS Mental Status: Alert, Oriented - VITAL SIGNS Pulse Rate: 99 SaO2: 98 Resp Rate: 12 Blood Pressure: 180/103 (similar to preop bp's) - RESPIRATORY Respiratory Status: Respiratory Rate WNL, Airway Patent, O2 Saturation Stable, Supplemental Oxygen (per NC) - CARDIOVASCULAR CV Status: Pulse Rate WNL, Blood Pressure Stable - GASTROINTESTINAL GI Status: No Symptoms - PAIN Pain Score: 0 - POST OP HYDRATION Hydration Status: Adequate & Stable - OBSERVATIONS Free Text/Narrative:: Pt did have a hypoglycemic event earlier today - upon arrival to PACU his BG was 98 and he was still receiving part of a 250mL D5W bag. Upon time to discharge pt, BG had dropped to 81. Pt kept an additional 15 min with remainder of D5W infusing and BG back to 98. Stable for discharge to phase II recovery on med/surg at this time.
--- NOTE | 2018-01-25 16:32 | CR ---
EXAMINATION: Right fifth toe HISTORY: Amputation COMPARISON: MRI dated 01/20/2018 TECHNIQUE: 4 fluoroscopic images provided FINDINGS/IMPRESSION: Operative control films demonstrate amputation of the fifth digit at the MTP garry nt.
[2018-01-25] MEDS: Morphine 4 MG/ML Syringe IVPUSH PRN ×2 (17:05→21:20)
[2018-01-25] MEDS: oxyCODONE 5 MG Tab PO PRN ×2 (17:06→21:20)
[2018-01-25] MEDS: Ertapenem 1 GM in Sodium Chloride 0.9% 100 ML IV SCH (17:58)
--- NOTE | 2018-01-25 18:57 | US ---
EXAM DATE: 01/20/18 PATIENT'S AGE: 32 Patient: DAWOOD DUCKWORTH Facility: [place], [place] Site . Site : 1985 Study: US Extremity Venous RIGHT [id number] 2:23:01 PM Ordering Physician: Rick Canales Final Report: CLINICAL HISTORY: Pain and swelling right lower extremity TECHNIQUE: A compression venous ultrasound exam was performed of the right lower extremity using hernandez-scale imaging, color Doppler and spectral Doppler analysis. FINDINGS: Sonographic imaging of the right lower extremity demonstrates normal compressibility and color Doppler venous blood flow within the common femoral vein, deep femoral vein, and the proximal greater saphenous vein. Within the thigh, the femoral vein is patent and compressible. At a lower level, the popliteal and posterior tibial veins also show normal compressibility and color Doppler venous blood flow. Limited imaging of the contralateral groin demonstrates a normal spectral waveform and color Doppler venous blood flow within the left common femoral vein. IMPRESSION: Normal venous ultrasound exam. No evidence of deep vein thrombosis within the right lower extremity. Dictated by Db Olivas MD @ Jan 23 2018 2:40PM (Electronic Signature) Report Signed by Proxy. INOCENTE
[2018-01-25] MEDS: Insulin Glargine,Human Rec. Analog 100 Units/ML 3 ML Pen SUBCUT SCH (21:45)
[2018-01-25] MEDS: Ondansetron 4 MG/2 ML SDV IVPUSH PRN (23:19)
[2018-01-26] MEDS: oxyCODONE 5 MG Tab PO PRN ×3 (01:16→21:09)
[2018-01-26] MEDS ORDERED: 50% Dextrose in Water 50 ML Syringe IVPUSH ONE (03:47)
--- NOTE | 2018-01-26 04:56 | OR ---
SURGEON: Andres English DPM DATE OF PROCEDURE: 01/25/2018 PREOPERATIVE DIAGNOSIS: Necrotic gangrenous 5th toe, right foot. POSTOPERATIVE DIAGNOSIS: Necrotic gangrenous 5th toe, right foot. OPERATIVE PROCEDURE PERFORMED: Amputation of 5th toe, right foot. ANESTHESIA: General. HEMOSTASIS: Above ankle pneumatic tourniquet inflated to a pressure of 250 mmHg after an Esmarch bandage exsanguination of the right lower extremity. INJECTABLES: 6 mL of 0.5% Marcaine plain. MATERIALS: 3-0 Vicryl, 0 Prolene, and 4-0 Prolene. JUSTIFICATION FOR PROCEDURE: The patient is a type 1, uncontrolled diabetic, who has at least recently been metabolically unstable and was sent to be admitted to the hospital after seeing his primary care doctor, Dr. Infante, in order to be cleared for 5th toe amputation due to the necrotic changes observed. Following several days' stay in the hospital, he is deemed to be sufficiently stable to proceed with surgery, and the surgery is necessary due to a severely necrotic gangrenous 5th toe on the right foot. Necessity of surgery discussed with patient. All questions answered. No guarantees expressed or implied. Patient understood and consented that in addition to amputation of right fifth toe, possible partial resection of the right fifth metatarsal could be performed if deemed necessary. PROCEDURE IN DETAIL: The patient was brought from his room to the operating room and placed on the operating table in a supine position, at which time an aseptic scrub and drape was performed about the right lower extremity. A racket mouth-type incision was planned followed by an Esmarch bandage exsanguination and the pneumatic tourniquet was inflated. The procedure commenced with dissection down to the level of bone about the right 5th toe. The 5th toe was disarticulated at the proximal interphalangeal joint and the amputated portion placed in a specimen cup to be sent to pathology for examination. Added to this cup, was additional amputation consisting of the remnant of the proximal phalanx and soft tissue to the level of the 5th metatarsophalangeal joint of the right foot. The area was inspected. There was very little bleeding and no vessels were identified that required ligation. Extensive flexor tendon remnants were resected as proximal as possible. Copious amount of normal sterile saline was used to irrigate the area. All necrotic tissue that could be identified was removed. Probing was done using a [place] elevator and no tunnels were identified. The head of the 5th metatarsal appeared to be intact and not compromised for verification. However, the dorsal aspect of the 5th metatarsal head was sampled with a bone rongeur and bone was obtained and sent for gross and histologic examination by Pathology to determine whether osteomyelitis may be present at the level of the 5th metatarsal head. Area was then flushed again with normal sterile saline and closure commenced with 3-0 Vicryl suture for the deep tissue. An 11 blade was used to better reapproximate the skin by fashioning the remnants that were present. The skin quality was exceptionally poor in this patient and the risk of complications is very high given the fact that the patient's white blood cell count could still not be controlled adequately and that the skin in some areas had a texture similar to leather. Skin was further reapproximated using 0- Prolene suture and 4-0 Prolene suture. At the conclusion of the procedure, 6 mL of 0.5% Marcaine plain was infiltrated about the surgery site, and the area was covered with Xeroform gauze, 4 x 4 gauze, Kerlix roll, an Fermín bandage, and the tourniquet was deflated. The patient tolerated the procedure and the anesthesia well, was transported from the operating room to the recovery room with vital signs stable and vascular status intact. The patient will be readmitted to his room and is to be nonweightbearing with crutches. The patient will be followed if he remains in the hospital and will be followed outpatient following discharge. ISHMAEL CUEVA /[id number]
[2018-01-26] MEDS: Dextrose 5% in Water 1,000 ML IV SCH ×2 (05:38→16:59)
--- NOTE | 2018-01-26 06:08 | PCM48HPAN ---
Post Anesthesia Note - EVALUATION WITHIN 48HRS OF ANESTHETIC Vital Signs in Normal Range: Yes Patient Participated in Evaluation: Yes Respiratory Function Stable: Yes Airway Patent: Yes Cardiovascular Function Stable: Yes Hydration Status Stable: Yes Pain Control Satisfactory: Yes Nausea and Vomiting Control Satisfactory: Yes Mental Status Recovered: Yes Pulse Rate: 99 Resp Rate: 16 Temperature: 98.6 F Blood Pressure: 180/103 (similar to preop bp's) - COMMENTS/OBSERVATIONS Free Text/Narrative:: Pt states that he did have an episode of nausea overnight, but not currently. States pain control has been ok and just received another pain pill. No apparent anesthesia complications.
--- NOTE | 2018-01-26 06:34 | PCM.PN ---
- General Info Date of Service: 01/26/18 Admission Dx/Problem (Free Text): Admission Diagnosis/Problem Admission Diagnosis/Problem Leukocytosis, necrotic fifth toe right foot Subjective Update: Feeling better this morning. No chest pain or SOB. R foot pain is tolerable with pain medications. Having some blurred vision, has not had follow up for dilated eye exam in a long time. Will need this. Reports swelling in RLE improving. Functional Status: Reports: Pain Controlled, Tolerating Diet, Ambulating (NWB to R) - Review of Systems General: Reports: No Symptoms. Denies: Fever, Weakness, Fatigue, Malaise HEENT: Reports: No Symptoms. Denies: Headaches, Sore Throat, Visual Changes Pulmonary: Reports: No Symptoms. Denies: Shortness of Breath, Cough, Sputum Cardiovascular: Reports: No Symptoms. Denies: Chest Pain, Palpitations, Lightheadedness Gastrointestinal: Reports: Flatus. Denies: Abdominal Pain, Nausea, Vomiting Genitourinary: Reports: No Symptoms. Denies: Dysuria, Frequency, Burning Musculoskeletal: Reports: Foot Pain (R foot, burning. ) Skin: Reports: No Symptoms Neurological: Reports: No Symptoms Psychiatric: Reports: No Symptoms - Patient Data Vitals - Most Recent: Last Vital Signs Temp 98.6 F 01/26/18 06:07 Pulse 99 01/26/18 06:07 Resp 16 01/26/18 06:07 BP 180/103 H 01/26/18 06:07 Pulse Ox 95 01/26/18 04:00 Weight - Most Recent: 83.053 kg I&O - Last 24 Hours: Intake & Output 01/25/18 01/25/18 01/26/18 14:59 22:59 06:59 Intake Total 643 793 5963 Output Total 2150 2225 Balance 200 -1350 -585 Lab Results Last 24 Hours: Laboratory Results - last 24 hr 01/23/18 01/25/18 01/25/18 Range/Units 10:11 05:30 05:42 WBC (4.0-11.0) K/uL RBC (4.50-5.90) M/uL Hgb (13.0-17.0) g/dL Hct (38.0-50.0) % MCV (80.0-98.0) fL MCH (27.0-32.0) pg MCHC (31.0-37.0) g/dL RDW Std Deviation (28.0-62.0) fl RDW Coeff of Dania (11.0-15.0) % Plt Count (150-400) K/uL MPV (7.40-12.00) fL Neut % (Auto) (48.0-80.0) % Lymph % (Auto) (16.0-40.0) % Daniels % (Auto) (0.0-15.0) % Eos % (Auto) (0.0-7.0) % Baso % (Auto) (0.0-1.5) % Neut # (Auto) (1.4-5.7) K/uL Lymph # (Auto) (0.6-2.4) K/uL Daniels # (Auto) (0.0-0.8) K/uL Eos # (Auto) (0.0-0.7) K/uL Baso # (Auto) (0.0-0.1) K/uL Nucleated RBC % /100WBC Nucleated RBCs # K/uL Haptoglobin 676 H (44-215) mg/dL Sodium 138 (136-148) mmol/L Potassium 4.9 (3.5-5.1) mmol/L Chloride 103 (98-107) mmol/L Carbon Dioxide 24.8 (21.0-32.0) mmol/L BUN 28 H (7.0-18.0) mg/dL Creatinine 1.7 H (0.8-1.3) mg/dL Est Cr Clr Drug Dosing 62.96 mL/min Estimated GFR (MDRD) 47.2 ml/min Glucose 99 (74-106) mg/dL POC Glucose (60-110) mg/dL Calcium 9.0 (8.5-10.1) mg/dL Phosphorus 5.3 H (2.6-4.7) mg/dL 01/25/18 01/25/18 01/25/18 Range/Units 05:42 08:33 09:46 WBC 20.38 H (4.0-11.0) K/uL RBC 4.19 L (4.50-5.90) M/uL Hgb 9.6 L (13.0-17.0) g/dL Hct 29.4 L (38.0-50.0) % MCV 70.2 L (80.0-98.0) fL MCH 22.9 L (27.0-32.0) pg MCHC 32.7 (31.0-37.0) g/dL RDW Std Deviation 49.1 (28.0-62.0) fl RDW Coeff of Dania 20 H (11.0-15.0) % Plt Count 466 H (150-400) K/uL MPV 9.10 (7.40-12.00) fL Neut % (Auto) 76.9 (48.0-80.0) % Lymph % (Auto) 13.3 L (16.0-40.0) % Daniels % (Auto) 6.8 (0.0-15.0) % Eos % (Auto) 2.8 (0.0-7.0) % Baso % (Auto) 0.2 (0.0-1.5) % Neut # (Auto) 15.7 H (1.4-5.7) K/uL Lymph # (Auto) 2.7 H (0.6-2.4) K/uL Daniels # (Auto) 1.4 H (0.0-0.8) K/uL Eos # (Auto) 0.6 (0.0-0.7) K/uL Baso # (Auto) 0.0 (0.0-0.1) K/uL Nucleated RBC % 0.0 /100WBC Nucleated RBCs # 0 K/uL Haptoglobin (44-215) mg/dL Sodium (136-148) mmol/L Potassium (3.5-5.1) mmol/L Chloride (98-107) mmol/L Carbon Dioxide (21.0-32.0) mmol/L BUN (7.0-18.0) mg/dL Creatinine (0.8-1.3) mg/dL Est Cr Clr Drug Dosing mL/min Estimated GFR (MDRD) ml/min Glucose (74-106) mg/dL POC Glucose 158 H 91 (60-110) mg/dL Calcium (8.5-10.1) mg/dL Phosphorus (2.6-4.7) mg/dL 01/25/18 01/25/18 01/25/18 Range/Units 11:54 12:20 16:29 WBC (4.0-11.0) K/uL RBC (4.50-5.90) M/uL Hgb (13.0-17.0) g/dL Hct (38.0-50.0) % MCV (80.0-98.0) fL MCH (27.0-32.0) pg MCHC (31.0-37.0) g/dL RDW Std Deviation (28.0-62.0) fl RDW Coeff of Dania (11.0-15.0) % Plt Count (150-400) K/uL MPV (7.40-12.00) fL Neut % (Auto) (48.0-80.0) % Lymph % (Auto) (16.0-40.0) % Daniels % (Auto) (0.0-15.0) % Eos % (Auto) (0.0-7.0) % Baso % (Auto) (0.0-1.5) % Neut # (Auto) (1.4-5.7) K/uL Lymph # (Auto) (0.6-2.4) K/uL Daniels # (Auto) (0.0-0.8) K/uL Eos # (Auto) (0.0-0.7) K/uL Baso # (Auto) (0.0-0.1) K/uL Nucleated RBC % /100WBC Nucleated RBCs # K/uL Haptoglobin (44-215) mg/dL Sodium (136-148) mmol/L Potassium (3.5-5.1) mmol/L Chloride (98-107) mmol/L Carbon Dioxide (21.0-32.0) mmol/L BUN (7.0-18.0) mg/dL Creatinine (0.8-1.3) mg/dL Est Cr Clr Drug Dosing mL/min Estimated GFR (MDRD) ml/min Glucose (74-106) mg/dL POC Glucose 47 L 131 H 85 (60-110) mg/dL Calcium (8.5-10.1) mg/dL Phosphorus (2.6-4.7) mg/dL 01/25/18 01/25/18 01/26/18 Range/Units 21:11 23:12 01:37 WBC (4.0-11.0) K/uL RBC (4.50-5.90) M/uL Hgb (13.0-17.0) g/dL Hct (38.0-50.0) % MCV (80.0-98.0) fL MCH (27.0-32.0) pg MCHC (31.0-37.0) g/dL RDW Std Deviation (28.0-62.0) fl RDW Coeff of Dania (11.0-15.0) % Plt Count (150-400) K/uL MPV (7.40-12.00) fL Neut % (Auto) (48.0-80.0) % Lymph % (Auto) (16.0-40.0) % Daniels % (Auto) (0.0-15.0) % Eos % (Auto) (0.0-7.0) % Baso % (Auto) (0.0-1.5) % Neut # (Auto) (1.4-5.7) K/uL Lymph # (Auto) (0.6-2.4) K/uL Daniels # (Auto) (0.0-0.8) K/uL Eos # (Auto) (0.0-0.7) K/uL Baso # (Auto) (0.0-0.1) K/uL Nucleated RBC % /100WBC Nucleated RBCs # K/uL Haptoglobin (44-215) mg/dL Sodium (136-148) mmol/L Potassium (3.5-5.1) mmol/L Chloride (98-107) mmol/L Carbon Dioxide (21.0-32.0) mmol/L BUN (7.0-18.0) mg/dL Creatinine (0.8-1.3) mg/dL Est Cr Clr Drug Dosing mL/min Estimated GFR (MDRD) ml/min Glucose (74-106) mg/dL POC Glucose 97 62 80 (60-110) mg/dL Calcium (8.5-10.1) mg/dL Phosphorus (2.6-4.7) mg/dL 01/26/18 01/26/18 01/26/18 Range/Units 03:12 03:42 04:26 WBC (4.0-11.0) K/uL RBC (4.50-5.90) M/uL Hgb (13.0-17.0) g/dL Hct (38.0-50.0) % MCV (80.0-98.0) fL MCH (27.0-32.0) pg MCHC (31.0-37.0) g/dL RDW Std Deviation (28.0-62.0) fl RDW Coeff of Dania (11.0-15.0) % Plt Count (150-400) K/uL MPV (7.40-12.00) fL Neut % (Auto) (48.0-80.0) % Lymph % (Auto) (16.0-40.0) % Daniels % (Auto) (0.0-15.0) % Eos % (Auto) (0.0-7.0) % Baso % (Auto) (0.0-1.5) % Neut # (Auto) (1.4-5.7) K/uL Lymph # (Auto) (0.6-2.4) K/uL Daniels # (Auto) (0.0-0.8) K/uL Eos # (Auto) (0.0-0.7) K/uL Baso # (Auto) (0.0-0.1) K/uL Nucleated RBC % /100WBC Nucleated RBCs # K/uL Haptoglobin (44-215) mg/dL Sodium (136-148) mmol/L Potassium (3.5-5.1) mmol/L Chloride (98-107) mmol/L Carbon Dioxide (21.0-32.0) mmol/L BUN (7.0-18.0) mg/dL Creatinine (0.8-1.3) mg/dL Est Cr Clr Drug Dosing mL/min Estimated GFR (MDRD) ml/min Glucose (74-106) mg/dL POC Glucose 46 L 30 L 214 H (60-110) mg/dL Calcium (8.5-10.1) mg/dL Phosphorus (2.6-4.7) mg/dL 01/26/18 01/26/18 01/26/18 Range/Units 05:00 05:00 05:34 WBC 16.60 H (4.0-11.0) K/uL RBC 3.81 L (4.50-5.90) M/uL Hgb 8.6 L (13.0-17.0) g/dL Hct 26.9 L (38.0-50.0) % MCV 70.6 L (80.0-98.0) fL MCH 22.6 L (27.0-32.0) pg MCHC 32.0 (31.0-37.0) g/dL RDW Std Deviation 50.1 (28.0-62.0) fl RDW Coeff of Dania 19 H (11.0-15.0) % Plt Count 503 H (150-400) K/uL MPV 8.70 (7.40-12.00) fL Neut % (Auto) 79.0 (48.0-80.0) % Lymph % (Auto) 10.7 L (16.0-40.0) % Daniels % (Auto) 7.5 (0.0-15.0) % Eos % (Auto) 2.6 (0.0-7.0) % Baso % (Auto) 0.2 (0.0-1.5) % Neut # (Auto) 13.1 H (1.4-5.7) K/uL Lymph # (Auto) 1.8 (0.6-2.4) K/uL Daniels # (Auto) 1.2 H (0.0-0.8) K/uL Eos # (Auto) 0.4 (0.0-0.7) K/uL Baso # (Auto) 0.0 (0.0-0.1) K/uL Nucleated RBC % 0.0 /100WBC Nucleated RBCs # 0 K/uL Haptoglobin (44-215) mg/dL Sodium 138 (136-148) mmol/L Potassium 4.2 (3.5-5.1) mmol/L Chloride 103 (98-107) mmol/L Carbon Dioxide 30.2 (21.0-32.0) mmol/L BUN 19 H (7.0-18.0) mg/dL Creatinine 1.6 H (0.8-1.3) mg/dL Est Cr Clr Drug Dosing 66.89 mL/min Estimated GFR (MDRD) 50.7 ml/min Glucose 166 H (74-106) mg/dL POC Glucose 151 H (60-110) mg/dL Calcium 8.3 L (8.5-10.1) mg/dL Phosphorus 5.1 H (2.6-4.7) mg/dL Peter Results Last 24 Hours: Microbiology 01/20/18 17:17 Aerobic Blood Culture - Final Blood - Venous - Lab Draw NO GROWTH AFTER 5 DAYS Anaerobic Blood Culture - Final NO GROWTH AFTER 5 DAYS 01/20/18 17:06 Aerobic Blood Culture - Final Blood - Venous NO GROWTH AFTER 5 DAYS Anaerobic Blood Culture - Final NO GROWTH AFTER 5 DAYS 01/25/18 14:07 Gram Stain - Preliminary Foot, Right Med Orders - Current: Current Medications Acetaminophen (Tylenol) 650 mg PO Q4H PRN PRN Reason: Pain (mild 1-3) Amlodipine Besylate (Norvasc) 10 mg PO DAILY [facility] Last Admin: 01/25/18 09:26 Dose: 10 mg Docusate Sodium (Colace) 100 mg PO BID PRN PRN Reason: Constipation Doxazosin Mesylate (Cardura) 2 mg PO DAILY [facility] Last Admin: 01/25/18 09:25 Dose: 2 mg Enalapril Maleate (Vasotec) 40 mg PO DAILY [facility] Fentanyl (Sublimaze) 50 mcg IVPUSH Q5M PRN PRN Reason: Pain (severe 7-10) Stop: 01/26/18 13:48 Ferrous Sulfate (Ferrous Sulfate) 325 mg PO TIDMEALS [facility] Last Admin: 01/25/18 17:06 Dose: 325 mg Vancomycin HCl 1 gm/ Sodium (Chloride) 250 mls @ 166.667 mls/hr IV Q12H [facility] Last Admin: 01/25/18 23:09 Dose: 166.667 mls/hr Ertapenem 1 gm/ Sodium (Chloride) 100 mls @ 200 mls/hr IV Q24H [facility] Last Admin: 01/25/18 17:58 Dose: 200 mls/hr Dextrose/Water (Dextrose 5% In Water) 1,000 mls @ 125 mls/hr IV ASDIRECTED [facility] Last Admin: 01/26/18 05:38 Dose: 125 mls/hr Insulin Aspart (Novolog) 0 unit SUBCUT TIDAC [facility]; Protocol Last Admin: 01/25/18 17:23 Dose: Not Given Insulin Aspart (Novolog) 0 unit SUBCUT TIDAC [facility] Last Admin: 01/25/18 17:23 Dose: Not Given Insulin Glargine (Lantus Solostar) 30 units SUBCUT BEDTIME [facility] Last Admin: 01/25/18 21:45 Dose: 15 units Morphine Sulfate (Morphine) 3 mg IVPUSH Q2H PRN PRN Reason: Pain Last Admin: 01/25/18 21:20 Dose: 3 mg Ondansetron HCl (Zofran) 4 mg IVPUSH Q4H PRN PRN Reason: Pain Last Admin: 01/25/18 23:19 Dose: 4 mg Oxycodone HCl (Oxycodone) 5 mg PO Q4H PRN PRN Reason: Pain (moderate 4-6) Last Admin: 01/26/18 05:38 Dose: 5 mg Pantoprazole Sodium (Protonix) 40 mg PO ACBREAKFAST [facility] Last Admin: 01/25/18 06:36 Dose: 40 mg Sodium Chloride (Saline Flush) 2.5 ml FLUSH ASDIRECTED PRN PRN Reason: Keep Vein Open Torsemide (Demadex) 20 mg PO DAILY [facility] Last Admin: 01/25/18 09:25 Dose: 20 mg Vancomycin HCl (Pharmacy To Dose - Vancomycin) 1 dose .XX ASDIRECTED [facility] Discontinued Medications Amlodipine Besylate (Norvasc) 10 mg PO DAILY [facility] Bupivacaine HCl (Marcaine 0.5%) Confirm Administered Dose 30 ml .ROUTE .STK-MED ONE Stop: 01/25/18 12:41 Dextrose/Water (Dextrose 50% In Water) 50 ml IVPUSH ONETIME ONE Stop: 01/25/18 08:22 Last Admin: 01/25/18 08:30 Dose: 50 ml Dextrose/Water (Dextrose 50% In Water) 50 ml IVPUSH ONETIME ONE Stop: 01/25/18 11:57 Last Admin: 01/25/18 12:02 Dose: 50 ml Dextrose/Water (Dextrose 50% In Water) 50 ml IVPUSH ONETIME ONE Stop: 01/26/18 03:48 Last Admin: 01/26/18 03:57 Dose: 50 ml Fentanyl (Sublimaze) Confirm Administered Dose 100 mcg .ROUTE .STK-MED ONE Stop: 01/25/18 11:48 Hydralazine HCl (Apresoline) 10 mg IVPUSH ONETIME ONE Stop: 01/21/18 01:35 Last Admin: 01/21/18 01:52 Dose: 10 mg Sodium Chloride (Normal Saline) 1,000 mls @ 100 mls/hr IV ASDIRECTED [facility] Last Infusion: 01/21/18 08:40 Dose: 100 mls/hr Vancomycin HCl 1,250 mg/ (Sodium Chloride) 250 mls @ 166.667 mls/hr IV Q12H [facility] Last Admin: 01/22/18 08:09 Dose: Not Given Cefepime HCl 1 gm/ Premix 50 mls @ 100 mls/hr IV Q8H [facility] Last Admin: 01/25/18 08:19 Dose: 100 mls/hr Sodium Chloride (Normal Saline) 1,000 mls @ 75 mls/hr IV .BOLUS ONE Stop: 01/24/18 08:20 Last Admin: 01/23/18 19:28 Dose: 75 mls/hr Sodium Chloride (Normal Saline) Confirm Administered Dose 250 mls @ as directed .ROUTE .STK-MED ONE Stop: 01/24/18 22:24 Last Admin: 01/25/18 00:01 Dose: Not Given Lactated Ringer's (Ringers, Lactated) 1,000 mls @ 125 mls/hr IV ASDIRECTED [facility] Last Admin: 01/25/18 04:23 Dose: 125 mls/hr Dextrose/Lactated Ringer's (Dextrose 5%-Lactated Ringers) 1,000 mls @ 75 mls/ hr IV ASDIRECTED [facility] Last Admin: 01/25/18 09:05 Dose: 75 mls/hr Dextrose/Lactated Ringer's (Dextrose 5%-Lactated Ringers) 1,000 mls @ 125 mls/ hr IV ASDIRECTED [facility] Last Admin: 01/25/18 12:07 Dose: 125 mls/hr Insulin Aspart (Novolog) 0 unit SUBCUT TIDAC [facility]; Protocol Last Admin: 01/21/18 12:11 Dose: Not Given Insulin Aspart (Novolog) 0 unit SUBCUT TIDAC [facility] Last Admin: 01/21/18 08:15 Dose: 6 units Insulin Aspart (Novolog) 0 unit SUBCUT TIDAC [facility] Last Admin: 01/21/18 12:12 Dose: Not Given Insulin Aspart (Novolog) 10 unit SUBCUT ONETIME ONE Stop: 01/22/18 06:31 Last Admin: 01/22/18 07:14 Dose: 10 units Insulin Aspart (Novolog) 10 unit SUBCUT ONETIME ONE Stop: 01/24/18 20:01 Last Admin: 01/24/18 19:55 Dose: Not Given Insulin Glargine (Lantus Solostar) 42 units SUBCUT BEDTIME [facility] Last Admin: 01/20/18 21:35 Dose: 42 units Insulin Glargine (Lantus Solostar) 35 units SUBCUT BEDTIME [facility] Insulin Glargine (Lantus Solostar) 25 units SUBCUT BEDTIME [facility] Insulin Human Regular (Novolin R) 10 unit IVPUSH ONETIME ONE; Protocol Stop: 01/22/18 06:26 Last Admin: 01/22/18 07:24 Dose: 10 units Lidocaine (Xylocaine-Mpf 2%) Confirm Administered Dose 10 ml .ROUTE .STK-MED ONE Stop: 01/25/18 11:47 Lidocaine HCl (Xylocaine 1%) Confirm Administered Dose 20 ml .ROUTE .STK-MED ONE Stop: 01/25/18 12:44 Midazolam HCl (Versed 1 Mg/Ml) Confirm Administered Dose 2 mg .ROUTE .STK-MED ONE Stop: 01/25/18 11:48 Nitroglycerin (Nitro-Bid 2%) Confirm Administered Dose 1 gm .ROUTE .STK-MED ONE Stop: 01/25/18 14:28 Ondansetron HCl (Zofran) Confirm Administered Dose 4 mg .ROUTE .STK-MED ONE Stop: 01/25/18 11:48 Propofol (Diprivan 20 Ml) Confirm Administered Dose 400 mg .ROUTE .STK-MED ONE Stop: 01/25/18 11:47 Sodium Polystyrene Sulfonate (Kayexalate) 15 gm PO ONETIME ONE Stop: 01/23/18 09:44 Last Admin: 01/23/18 10:42 Dose: 15 gm Sodium Polystyrene Sulfonate (Kayexalate) 45 gm PO NOW ONE Stop: 01/23/18 18:17 Last Admin: 01/23/18 19:27 Dose: 45 gm Sodium Polystyrene Sulfonate (Kayexalate) Confirm Administered Dose 30 gm .ROUTE .STK-MED ONE Stop: 01/23/18 19:37 Last Admin: 01/23/18 19:52 Dose: Not Given Spironolactone (Aldactone) 25 mg PO DAILY [facility] - Exam Quality Assessment: DVT Prophylaxis (SCDs) General: Alert, Oriented, Cooperative Neck: Supple Lungs: Clear to Auscultation, Normal Respiratory Effort Cardiovascular: Regular Rate, Regular Rhythm GI/Abdominal Exam: Normal Bowel Sounds, Soft, Non-Tender, No Organomegaly, No Distention, No Abnormal Bruit, No Mass, Pelvis Stable Extremities: Normal Inspection, Normal Range of Motion, Pedal Edema (+1 pitting edema to RLE, improving, wrinkling noted of decreased edema. ) Wound/Incisions: Dressing Dry and Intact (CMS intact to R foot. Dr English to come by today and remove dressing.) Neurological: No New Focal Deficit Psy/Mental Status: Alert, Normal Affect, Normal Mood - Problem List & Annotations (1) Diabetic foot ulcer SNOMED Code(s): 778619445 Code(s): E11.621 - TYPE 2 DIABETES MELLITUS WITH FOOT ULCER; L97.509 - NON- PRESSURE CHRONIC ULCER OTH PRT UNSP FOOT W UNSP SEVERITY Status: Acute Current Visit: No Qualifiers: Diabetic foot ulcer location: toe Diabetes mellitus type: type 1 Laterality: right Non-pressure ulcer stage: with necrosis of muscle Qualified Code(s): E10.621 - Type 1 diabetes mellitus with foot ulcer; L97.513 - Non-pressure chronic ulcer of other part of right foot with necrosis of muscle (2) History of GI bleed SNOMED Code(s): 238979508 Code(s): Z87.19 - PERSONAL HISTORY OF OTHER DISEASES OF THE DIGESTIVE SYSTEM Status: Chronic Current Visit: Yes (3) Diabetic gastroparesis SNOMED Code(s): 922582172 Code(s): E11.43 - TYPE 2 DIABETES W DIABETIC AUTONOMIC (POLY)NEUROPATHY; K31.84 - GASTROPARESIS Status: Chronic Current Visit: No (4) Chronic renal insufficiency SNOMED Code(s): 650683557 Code(s): N18.9 - CHRONIC KIDNEY DISEASE, UNSPECIFIED Status: Chronic Current Visit: No (5) Diabetes mellitus type I SNOMED Code(s): 84151163 Code(s): E10.9 - TYPE 1 DIABETES MELLITUS WITHOUT COMPLICATIONS Status: Chronic Current Visit: No Qualifiers: Diabetes mellitus complication status: with kidney complications Diabetes mellitus complication detail: with chronic kidney disease (6) Hypertension SNOMED Code(s): 71418111 Code(s): I10 - ESSENTIAL (PRIMARY) HYPERTENSION Status: Chronic Current Visit: No Qualifiers: Hypertension type: essential hypertension Qualified Code(s): I10 - Essential (primary) hypertension (7) Hx of gastroesophageal reflux (GERD) SNOMED Code(s): 16122072764410 Code(s): Z87.19 - PERSONAL HISTORY OF OTHER DISEASES OF THE DIGESTIVE SYSTEM Status: Chronic Current Visit: Yes (8) Hx MRSA infection SNOMED Code(s): 995232886, 201782299 Code(s): Z86.14 - PERSONAL HISTORY OF METHICILLIN RESIS STAPH INFECTION Status: Chronic Current Visit: Yes (9) Anemia SNOMED Code(s): 744365222 Code(s): D64.9 - ANEMIA, UNSPECIFIED Status: Chronic Current Visit: No Qualifiers: Anemia type: due to chronic kidney disease - Problem List Review Problem List Initiated/Reviewed/Updated: Yes - My Orders Last 24 Hours: My Active Orders 01/25/18 15:03 PT Evaluation and Treatment [CONS] Routine 01/25/18 15:06 Weight bearing status [OM.PC] Routine 01/25/18 16:39 Morphine 3 mg IVPUSH Q2H PRN 01/25/18 17:00 Ertapenem [INVanz] 1 gm Sodium Chloride 0.9% [Normal Saline] 100 ml IV Q24H 01/25/18 Dinner ADA Diabetic [[employer] Diet] [DIET] 01/26/18 09:00 Enalapril [Vasotec] 40 mg PO DAILY 01/27/18 05:11 BASIC METABOLIC PANEL,BMP [CHEM] AM 01/28/18 05:11 BASIC METABOLIC PANEL,BMP [CHEM] AM - Plan Plan:: 32 yo male admitted with Diabetic Foot Infection, 5th digit of R foot osteo 1. 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 OR yesterday for amputation of 5th digit to R foot with Dr English. Continue Vancomycin, Cefepime was discontinued yesterday and Ertapenem started. Leukocytosis improved today. Afebrile. BC negative. Cultures and bone culture sent to pathology. Results pending. Did explain to him if osteomyelitis is noted in metatarsal he will need case management rn IV antibiotics, he verbalized understanding. NWB status to R leg, crutch walking with PT. 2. DM type 1: BS continue to be very labile during stay. Continue Lantus 30 units at night. TIDAC SSI and Lantus dosing. Monitor closely. 3. HTN: Continue PO medications, Norvasc, Cardura, Torsemide. Restart Enalapril today. 4. Acute on chronic kidney injury: back to baseline, BUN Cr. Monitor. 5. Anemia: Hgb 8.6 today. Continue Iron supplementation. Monitor. No acute bleeding noted. 6. GERD and hx GI bleeding: No signs of acute bleed currently. No pharmacologic VTE agents due to history. Continue PPI. VTE prophylaxis: SCDs and ambulation. Dispo: 3-4 days pending improvement
[2018-01-26] MEDS: Pantoprazole 40 MG Tab.CR PO SCH (06:47)
[2018-01-26] MEDS: Insulin Aspart 100 Units/ML 3 ML Pen SUBCUT SCH ×7 (07:15→17:45)
[2018-01-26] MEDS: Ferrous Sulfate 325 MG Tab PO SCH ×3 (07:56→17:37)
[2018-01-26] MEDS: amLODIPine 5 MG Tab PO SCH (08:00)
[2018-01-26] MEDS: Torsemide 20 MG Tab PO SCH (08:01)
[2018-01-26] MEDS: Doxazosin 2 MG Tab PO SCH (08:01)
[2018-01-26] MEDS: Morphine 4 MG/ML Syringe IVPUSH PRN ×2 (08:12→21:07)
[2018-01-26] MEDS ORDERED: Spironolactone 25 MG Tab PO SCH (09:00)
[2018-01-26] MEDS: Docusate Sodium 100 MG Cap PO SCH ×2 (10:40→20:57)
[2018-01-26] MEDS: Ertapenem 1 GM in Sodium Chloride 0.9% 100 ML IV SCH (17:00)
[2018-01-26] MEDS: Ondansetron 4 MG/2 ML SDV IVPUSH PRN (17:46)
--- NOTE | 2018-01-26 20:04 | PCM.CONSN ---
- General Info Date of Service: 01/26/18 Admission Dx/Problem (Free Text): Admission Diagnosis/Problem Admission Diagnosis/Problem Leukocytosis, post op day 1 right fifth toe amputation Subjective Update: Patient states he feels well now and was sleeping earlier. He does not complain of pain to right foot pain. He states he had some mild nausea earlier but is better now.. Functional Status: Reports: Pain Controlled - Review of Systems General: Reports: No Symptoms HEENT: Reports: No Symptoms Pulmonary: Reports: No Symptoms Cardiovascular: Reports: No Symptoms Gastrointestinal: Reports: No Symptoms Genitourinary: Reports: No Symptoms Musculoskeletal: Reports: No Symptoms Skin: Reports: No Symptoms Neurological: Reports: No Symptoms Psychiatric: Reports: Anxiety - Patient Data Vitals - Most Recent: Last Vital Signs Temp 37.1 C 01/26/18 15:41 Pulse 103 H 01/26/18 15:41 Resp 18 01/26/18 15:41 BP 138/81 01/26/18 15:41 Pulse Ox 94 L 01/26/18 15:41 Weight - Most Recent: 83.053 kg I&O - Last 24 Hours: Intake & Output 01/26/18 01/26/18 01/26/18 06:59 14:59 22:59 Intake Total 9000 311 5916 Output Total 2225 1860 Balance -585 250 39 Lab Results Last 24 Hours: Laboratory Results - last 24 hr 01/23/18 01/25/18 01/25/18 Range/Units 10:11 16:29 21:11 WBC (4.0-11.0) K/uL RBC (4.50-5.90) M/uL Hgb (13.0-17.0) g/dL Hct (38.0-50.0) % MCV (80.0-98.0) fL MCH (27.0-32.0) pg MCHC (31.0-37.0) g/dL RDW Std Deviation (28.0-62.0) fl RDW Coeff of Dania (11.0-15.0) % Plt Count (150-400) K/uL MPV (7.40-12.00) fL Neut % (Auto) (48.0-80.0) % Lymph % (Auto) (16.0-40.0) % [place] % (Auto) (0.0-15.0) % Eos % (Auto) (0.0-7.0) % Baso % (Auto) (0.0-1.5) % Neut # (Auto) (1.4-5.7) K/uL Lymph # (Auto) (0.6-2.4) K/uL [place] # (Auto) (0.0-0.8) K/uL Eos # (Auto) (0.0-0.7) K/uL Baso # (Auto) (0.0-0.1) K/uL Nucleated RBC % /100WBC Nucleated RBCs # K/uL Haptoglobin 676 H (44-215) mg/dL Sodium (136-148) mmol/L Potassium (3.5-5.1) mmol/L Chloride (98-107) mmol/L Carbon Dioxide (21.0-32.0) mmol/L BUN (7.0-18.0) mg/dL Creatinine (0.8-1.3) mg/dL Est Cr Clr Drug Dosing mL/min Estimated GFR (MDRD) ml/min Glucose (74-106) mg/dL POC Glucose 85 97 (60-110) mg/dL Calcium (8.5-10.1) mg/dL Phosphorus (2.6-4.7) mg/dL 01/25/18 01/26/18 01/26/18 Range/Units 23:12 01:37 03:12 WBC (4.0-11.0) K/uL RBC (4.50-5.90) M/uL Hgb (13.0-17.0) g/dL Hct (38.0-50.0) % MCV (80.0-98.0) fL MCH (27.0-32.0) pg MCHC (31.0-37.0) g/dL RDW Std Deviation (28.0-62.0) fl RDW Coeff of Dania (11.0-15.0) % Plt Count (150-400) K/uL MPV (7.40-12.00) fL Neut % (Auto) (48.0-80.0) % Lymph % (Auto) (16.0-40.0) % [place] % (Auto) (0.0-15.0) % Eos % (Auto) (0.0-7.0) % Baso % (Auto) (0.0-1.5) % Neut # (Auto) (1.4-5.7) K/uL Lymph # (Auto) (0.6-2.4) K/uL [place] # (Auto) (0.0-0.8) K/uL Eos # (Auto) (0.0-0.7) K/uL Baso # (Auto) (0.0-0.1) K/uL Nucleated RBC % /100WBC Nucleated RBCs # K/uL Haptoglobin (44-215) mg/dL Sodium (136-148) mmol/L Potassium (3.5-5.1) mmol/L Chloride (98-107) mmol/L Carbon Dioxide (21.0-32.0) mmol/L BUN (7.0-18.0) mg/dL Creatinine (0.8-1.3) mg/dL Est Cr Clr Drug Dosing mL/min Estimated GFR (MDRD) ml/min Glucose (74-106) mg/dL POC Glucose 62 80 46 L (60-110) mg/dL Calcium (8.5-10.1) mg/dL Phosphorus (2.6-4.7) mg/dL 01/26/18 01/26/18 01/26/18 Range/Units 03:42 04:26 05:00 WBC (4.0-11.0) K/uL RBC (4.50-5.90) M/uL Hgb (13.0-17.0) g/dL Hct (38.0-50.0) % MCV (80.0-98.0) fL MCH (27.0-32.0) pg MCHC (31.0-37.0) g/dL RDW Std Deviation (28.0-62.0) fl RDW Coeff of Dania (11.0-15.0) % Plt Count (150-400) K/uL MPV (7.40-12.00) fL Neut % (Auto) (48.0-80.0) % Lymph % (Auto) (16.0-40.0) % [place] % (Auto) (0.0-15.0) % Eos % (Auto) (0.0-7.0) % Baso % (Auto) (0.0-1.5) % Neut # (Auto) (1.4-5.7) K/uL Lymph # (Auto) (0.6-2.4) K/uL [place] # (Auto) (0.0-0.8) K/uL Eos # (Auto) (0.0-0.7) K/uL Baso # (Auto) (0.0-0.1) K/uL Nucleated RBC % /100WBC Nucleated RBCs # K/uL Haptoglobin (44-215) mg/dL Sodium 138 (136-148) mmol/L Potassium 4.2 (3.5-5.1) mmol/L Chloride 103 (98-107) mmol/L Carbon Dioxide 30.2 (21.0-32.0) mmol/L BUN 19 H (7.0-18.0) mg/dL Creatinine 1.6 H (0.8-1.3) mg/dL Est Cr Clr Drug Dosing 66.89 mL/min Estimated GFR (MDRD) 50.7 ml/min Glucose 166 H (74-106) mg/dL POC Glucose 30 L 214 H (60-110) mg/dL Calcium 8.3 L (8.5-10.1) mg/dL Phosphorus 5.1 H (2.6-4.7) mg/dL 01/26/18 01/26/18 01/26/18 Range/Units 05:00 05:34 06:41 WBC 16.60 H (4.0-11.0) K/uL RBC 3.81 L (4.50-5.90) M/uL Hgb 8.6 L (13.0-17.0) g/dL Hct 26.9 L (38.0-50.0) % MCV 70.6 L (80.0-98.0) fL MCH 22.6 L (27.0-32.0) pg MCHC 32.0 (31.0-37.0) g/dL RDW Std Deviation 50.1 (28.0-62.0) fl RDW Coeff of Dania 19 H (11.0-15.0) % Plt Count 503 H (150-400) K/uL MPV 8.70 (7.40-12.00) fL Neut % (Auto) 79.0 (48.0-80.0) % Lymph % (Auto) 10.7 L (16.0-40.0) % [place] % (Auto) 7.5 (0.0-15.0) % Eos % (Auto) 2.6 (0.0-7.0) % Baso % (Auto) 0.2 (0.0-1.5) % Neut # (Auto) 13.1 H (1.4-5.7) K/uL Lymph # (Auto) 1.8 (0.6-2.4) K/uL [place] # (Auto) 1.2 H (0.0-0.8) K/uL Eos # (Auto) 0.4 (0.0-0.7) K/uL Baso # (Auto) 0.0 (0.0-0.1) K/uL Nucleated RBC % 0.0 /100WBC Nucleated RBCs # 0 K/uL Haptoglobin (44-215) mg/dL Sodium (136-148) mmol/L Potassium (3.5-5.1) mmol/L Chloride (98-107) mmol/L Carbon Dioxide (21.0-32.0) mmol/L BUN (7.0-18.0) mg/dL Creatinine (0.8-1.3) mg/dL Est Cr Clr Drug Dosing mL/min Estimated GFR (MDRD) ml/min Glucose (74-106) mg/dL POC Glucose 151 H 114 H (60-110) mg/dL Calcium (8.5-10.1) mg/dL Phosphorus (2.6-4.7) mg/dL 01/26/18 01/26/18 01/26/18 Range/Units 11:11 13:30 15:28 WBC (4.0-11.0) K/uL RBC (4.50-5.90) M/uL Hgb (13.0-17.0) g/dL Hct (38.0-50.0) % MCV (80.0-98.0) fL MCH (27.0-32.0) pg MCHC (31.0-37.0) g/dL RDW Std Deviation (28.0-62.0) fl RDW Coeff of Dania (11.0-15.0) % Plt Count (150-400) K/uL MPV (7.40-12.00) fL Neut % (Auto) (48.0-80.0) % Lymph % (Auto) (16.0-40.0) % [place] % (Auto) (0.0-15.0) % Eos % (Auto) (0.0-7.0) % Baso % (Auto) (0.0-1.5) % Neut # (Auto) (1.4-5.7) K/uL Lymph # (Auto) (0.6-2.4) K/uL [place] # (Auto) (0.0-0.8) K/uL Eos # (Auto) (0.0-0.7) K/uL Baso # (Auto) (0.0-0.1) K/uL Nucleated RBC % /100WBC Nucleated RBCs # K/uL Haptoglobin (44-215) mg/dL Sodium (136-148) mmol/L Potassium (3.5-5.1) mmol/L Chloride (98-107) mmol/L Carbon Dioxide (21.0-32.0) mmol/L BUN (7.0-18.0) mg/dL Creatinine (0.8-1.3) mg/dL Est Cr Clr Drug Dosing mL/min Estimated GFR (MDRD) ml/min Glucose (74-106) mg/dL POC Glucose 126 H 165 H 150 H (60-110) mg/dL Calcium (8.5-10.1) mg/dL Phosphorus (2.6-4.7) mg/dL 01/26/18 Range/Units 16:35 WBC (4.0-11.0) K/uL RBC (4.50-5.90) M/uL Hgb (13.0-17.0) g/dL Hct (38.0-50.0) % MCV (80.0-98.0) fL MCH (27.0-32.0) pg MCHC (31.0-37.0) g/dL RDW Std Deviation (28.0-62.0) fl RDW Coeff of Dania (11.0-15.0) % Plt Count (150-400) K/uL MPV (7.40-12.00) fL Neut % (Auto) (48.0-80.0) % Lymph % (Auto) (16.0-40.0) % [place] % (Auto) (0.0-15.0) % Eos % (Auto) (0.0-7.0) % Baso % (Auto) (0.0-1.5) % Neut # (Auto) (1.4-5.7) K/uL Lymph # (Auto) (0.6-2.4) K/uL [place] # (Auto) (0.0-0.8) K/uL Eos # (Auto) (0.0-0.7) K/uL Baso # (Auto) (0.0-0.1) K/uL Nucleated RBC % /100WBC Nucleated RBCs # K/uL Haptoglobin (44-215) mg/dL Sodium (136-148) mmol/L Potassium (3.5-5.1) mmol/L Chloride (98-107) mmol/L Carbon Dioxide (21.0-32.0) mmol/L BUN (7.0-18.0) mg/dL Creatinine (0.8-1.3) mg/dL Est Cr Clr Drug Dosing mL/min Estimated GFR (MDRD) ml/min Glucose (74-106) mg/dL POC Glucose 147 H (60-110) mg/dL Calcium (8.5-10.1) mg/dL Phosphorus (2.6-4.7) mg/dL Peter Results Last 24 Hours: Microbiology 01/25/18 14:07 Gram Stain - Preliminary Foot, Right Wound Culture - Preliminary 01/20/18 17:17 Aerobic Blood Culture - Final Blood - Venous - Lab Draw NO GROWTH AFTER 5 DAYS Anaerobic Blood Culture - Final NO GROWTH AFTER 5 DAYS 01/20/18 17:06 Aerobic Blood Culture - Final Blood - Venous NO GROWTH AFTER 5 DAYS Anaerobic Blood Culture - Final NO GROWTH AFTER 5 DAYS Med Orders - Current: Current Medications Acetaminophen (Tylenol) 650 mg PO Q4H PRN PRN Reason: Pain (mild 1-3) Amlodipine Besylate (Norvasc) 10 mg PO DAILY [facility] Last Admin: 01/26/18 08:00 Dose: 10 mg Docusate Sodium (Colace) 100 mg PO BID [facility] Last Admin: 01/26/18 10:40 Dose: 100 mg Doxazosin Mesylate (Cardura) 2 mg PO DAILY [facility] Last Admin: 01/26/18 08:01 Dose: 2 mg Enalapril Maleate (Vasotec) 40 mg PO DAILY [facility] Last Admin: 01/26/18 08:01 Dose: 40 mg Ferrous Sulfate (Ferrous Sulfate) 325 mg PO TIDMEALS [facility] Last Admin: 01/26/18 17:37 Dose: 325 mg Vancomycin HCl 1 gm/ Sodium (Chloride) 250 mls @ 166.667 mls/hr IV Q12H [facility] Last Admin: 01/26/18 10:39 Dose: 166.667 mls/hr Ertapenem 1 gm/ Sodium (Chloride) 100 mls @ 200 mls/hr IV Q24H [facility] Last Admin: 01/26/18 17:00 Dose: 200 mls/hr Dextrose/Water (Dextrose 5% In Water) 1,000 mls @ 125 mls/hr IV ASDIRECTED [facility] Last Admin: 01/26/18 16:59 Dose: 125 mls/hr Insulin Aspart (Novolog) 0 unit SUBCUT TIDAC [facility]; Protocol Last Admin: 01/26/18 17:04 Dose: Not Given Insulin Aspart (Novolog) 0 unit SUBCUT TIDAC [facility] Last Admin: 01/26/18 17:45 Dose: 4 units Insulin Glargine (Lantus Solostar) 15 units SUBCUT BEDTIME [facility] Morphine Sulfate (Morphine) 3 mg IVPUSH Q2H PRN PRN Reason: Pain Last Admin: 01/26/18 08:12 Dose: 3 mg Ondansetron HCl (Zofran) 4 mg IVPUSH Q4H PRN PRN Reason: Pain Last Admin: 01/26/18 17:46 Dose: 4 mg Oxycodone HCl (Oxycodone) 5 mg PO Q4H PRN PRN Reason: Pain (moderate 4-6) Last Admin: 01/26/18 05:38 Dose: 5 mg Pantoprazole Sodium (Protonix) 40 mg PO ACBREAKFAST [facility] Last Admin: 01/26/18 06:47 Dose: 40 mg Sodium Chloride (Saline Flush) 2.5 ml FLUSH ASDIRECTED PRN PRN Reason: Keep Vein Open Torsemide (Demadex) 20 mg PO DAILY [facility] Last Admin: 01/26/18 08:01 Dose: 20 mg Vancomycin HCl (Pharmacy To Dose - Vancomycin) 1 dose .XX ASDIRECTED [facility] Discontinued Medications Amlodipine Besylate (Norvasc) 10 mg PO DAILY [facility] Bupivacaine HCl (Marcaine 0.5%) Confirm Administered Dose 30 ml .ROUTE .STK-MED ONE Stop: 01/25/18 12:41 Dextrose/Water (Dextrose 50% In Water) 50 ml IVPUSH ONETIME ONE Stop: 01/25/18 08:22 Last Admin: 01/25/18 08:30 Dose: 50 ml Dextrose/Water (Dextrose 50% In Water) 50 ml IVPUSH ONETIME ONE Stop: 01/25/18 11:57 Last Admin: 01/25/18 12:02 Dose: 50 ml Dextrose/Water (Dextrose 50% In Water) 50 ml IVPUSH ONETIME ONE Stop: 01/26/18 03:48 Last Admin: 01/26/18 03:57 Dose: 50 ml Docusate Sodium (Colace) 100 mg PO BID PRN PRN Reason: Constipation Fentanyl (Sublimaze) Confirm Administered Dose 100 mcg .ROUTE .STK-MED ONE Stop: 01/25/18 11:48 Fentanyl (Sublimaze) 50 mcg IVPUSH Q5M PRN PRN Reason: Pain (severe 7-10) Stop: 01/26/18 13:48 Hydralazine HCl (Apresoline) 10 mg IVPUSH ONETIME ONE Stop: 01/21/18 01:35 Last Admin: 01/21/18 01:52 Dose: 10 mg Sodium Chloride (Normal Saline) 1,000 mls @ 100 mls/hr IV ASDIRECTED [facility] Last Infusion: 01/21/18 08:40 Dose: 100 mls/hr Vancomycin HCl 1,250 mg/ (Sodium Chloride) 250 mls @ 166.667 mls/hr IV Q12H [facility] Last Admin: 01/22/18 08:09 Dose: Not Given Cefepime HCl 1 gm/ Premix 50 mls @ 100 mls/hr IV Q8H [facility] Last Admin: 01/25/18 08:19 Dose: 100 mls/hr Sodium Chloride (Normal Saline) 1,000 mls @ 75 mls/hr IV .BOLUS ONE Stop: 01/24/18 08:20 Last Admin: 01/23/18 19:28 Dose: 75 mls/hr Sodium Chloride (Normal Saline) Confirm Administered Dose 250 mls @ as directed .ROUTE .STK-MED ONE Stop: 01/24/18 22:24 Last Admin: 01/25/18 00:01 Dose: Not Given Lactated Ringer's (Ringers, Lactated) 1,000 mls @ 125 mls/hr IV ASDIRECTED [facility] Last Admin: 01/25/18 04:23 Dose: 125 mls/hr Dextrose/Lactated Ringer's (Dextrose 5%-Lactated Ringers) 1,000 mls @ 75 mls/ hr IV ASDIRECTED [facility] Last Admin: 01/25/18 09:05 Dose: 75 mls/hr Dextrose/Lactated Ringer's (Dextrose 5%-Lactated Ringers) 1,000 mls @ 125 mls/ hr IV ASDIRECTED [facility] Last Admin: 01/25/18 12:07 Dose: 125 mls/hr Insulin Aspart (Novolog) 0 unit SUBCUT TIDAC [facility]; Protocol Last Admin: 01/21/18 12:11 Dose: Not Given Insulin Aspart (Novolog) 0 unit SUBCUT TIDAC [facility] Last Admin: 01/21/18 08:15 Dose: 6 units Insulin Aspart (Novolog) 0 unit SUBCUT TIDAC [facility] Last Admin: 01/21/18 12:12 Dose: Not Given Insulin Aspart (Novolog) 10 unit SUBCUT ONETIME ONE Stop: 01/22/18 06:31 Last Admin: 01/22/18 07:14 Dose: 10 units Insulin Aspart (Novolog) 0 unit SUBCUT TIDAC [facility] Last Admin: 01/26/18 17:21 Dose: Not Given Insulin Aspart (Novolog) 10 unit SUBCUT ONETIME ONE Stop: 01/24/18 20:01 Last Admin: 01/24/18 19:55 Dose: Not Given Insulin Glargine (Lantus Solostar) 42 units SUBCUT BEDTIME [facility] Last Admin: 01/20/18 21:35 Dose: 42 units Insulin Glargine (Lantus Solostar) 35 units SUBCUT BEDTIME [facility] Insulin Glargine (Lantus Solostar) 25 units SUBCUT BEDTIME [facility] Insulin Glargine (Lantus Solostar) 30 units SUBCUT BEDTIME [facility] Last Admin: 01/25/18 21:45 Dose: 15 units Insulin Human Regular (Novolin R) 10 unit IVPUSH ONETIME ONE; Protocol Stop: 01/22/18 06:26 Last Admin: 01/22/18 07:24 Dose: 10 units Lidocaine (Xylocaine-Mpf 2%) Confirm Administered Dose 10 ml .ROUTE .STK-MED ONE Stop: 01/25/18 11:47 Lidocaine HCl (Xylocaine 1%) Confirm Administered Dose 20 ml .ROUTE .STK-MED ONE Stop: 01/25/18 12:44 Midazolam HCl (Versed 1 Mg/Ml) Confirm Administered Dose 2 mg .ROUTE .STK-MED ONE Stop: 01/25/18 11:48 Nitroglycerin (Nitro-Bid 2%) Confirm Administered Dose 1 gm .ROUTE .STK-MED ONE Stop: 01/25/18 14:28 Ondansetron HCl (Zofran) Confirm Administered Dose 4 mg .ROUTE .STK-MED ONE Stop: 01/25/18 11:48 Propofol (Diprivan 20 Ml) Confirm Administered Dose 400 mg .ROUTE .STK-MED ONE Stop: 01/25/18 11:47 Sodium Polystyrene Sulfonate (Kayexalate) 15 gm PO ONETIME ONE Stop: 01/23/18 09:44 Last Admin: 01/23/18 10:42 Dose: 15 gm Sodium Polystyrene Sulfonate (Kayexalate) 45 gm PO NOW ONE Stop: 01/23/18 18:17 Last Admin: 01/23/18 19:27 Dose: 45 gm Sodium Polystyrene Sulfonate (Kayexalate) Confirm Administered Dose 30 gm .ROUTE .STK-MED ONE Stop: 01/23/18 19:37 Last Admin: 01/23/18 19:52 Dose: Not Given Spironolactone (Aldactone) 25 mg PO DAILY [facility]EL - Exam Peripheral Pulses: 2+: Posterior Tibial (R), Dorsalis Pedis (R) Skin: Warm Wound/Incisions: Healing Well, Drainage (minimal serous drainage to inner dressing, no active drainage to amputation site) Physical Findings Comments:: right lower extremity edema is significantly reduced from yesterday following surgery Consult PN Assessment/Plan POD#: 1 Procedures: Procedures AGENT NOS ASSAY W/OPTIC (11/07/15) ASSAY OF AMMONIA (08/04/17) ASSAY OF AMYLASE (08/04/17) ASSAY OF FERRITIN (09/25/17) ASSAY OF FREE THYROXINE (01/19/18) ASSAY OF IRON (12/16/17) ASSAY OF LACTIC ACID (08/04/17) ASSAY OF LIPASE (08/04/17) ASSAY OF MAGNESIUM (08/19/16) ASSAY OF NATRIURETIC PEPTIDE (08/04/17) ASSAY OF PHOSPHORUS (11/11/16) ASSAY OF PROTEIN URINE (01/06/18) ASSAY OF TROPONIN QUANT (08/04/17) ASSAY OF URINE CREATININE (01/06/18) ASSAY THYROID STIM HORMONE (01/19/18) BLOOD CULTURE FOR BACTERIA (07/22/17) BLOOD GASES ANY COMBINATION (08/04/17) C-REACTIVE PROTEIN (11/07/15) CHEST X-RAY 1 VIEW FRONTAL (08/04/17) CHEST X-RAY 2VW FRONTAL&LATL (08/04/17) COMPLETE CBC AUTOMATED (05/06/14) COMPLETE CBC W/AUTO DIFF WBC (01/19/18) COMPREHEN METABOLIC PANEL (01/19/18) CREATININE CLEARANCE TEST (04/10/16) CT ABD & PELVIS W/O CONTRAST (11/07/15) DRUG TEST PRSMV DIR OPT OBS (08/04/17) EGD BIOPSY SINGLE/MULTIPLE (01/29/17) ELECTROCARDIOGRAM TRACING (01/19/18) EMERGENCY DEPT VISIT (09/25/17) EMERGENCY DEPT VISIT (08/04/17) EMERGENCY DEPT VISIT (07/20/17) EMERGENCY DEPT VISIT (07/15/17) EMERGENCY DEPT VISIT (04/17/17) EMERGENCY DEPT VISIT (12/14/16) EMERGENCY DEPT VISIT (11/07/15) EMERGENCY DEPT VISIT (11/07/15) EMERGENCY DEPT VISIT (03/28/15) EMERGENCY DEPT VISIT (03/12/15) EMERGENCY DEPT VISIT (09/28/14) EMERGENCY DEPT VISIT (06/19/14) EMERGENCY DEPT VISIT (04/03/14) EXTREMITY STUDY (07/20/17) FIBRIN DEGRADATION QUANT (07/22/17) GASTRIC EMPTYING IMAG STUDY (02/03/17) GLUCOSE BLOOD TEST (09/25/17) GLYCOSYLATED HEMOGLOBIN TEST (01/19/18) HYDRATE IV INFUSION ADD-ON (08/04/17) IMMUNIZATION ADMIN (07/20/17) INFLUENZA ASSAY W/OPTIC (08/04/17) IRON BINDING TEST (09/25/17) LIPID PANEL (01/19/18) LUNG VENTILAT&PERFUS IMAGING (07/22/17) METABOLIC PANEL TOTAL CA (10/07/17) OCCULT BLD FECES 1-3 TESTS (11/07/15) PROTHROMBIN TIME (01/19/18) RENAL FUNCTION PANEL (01/06/18) ROUTINE VENIPUNCTURE (01/19/18) SPECIAL STAINS GROUP 1 (10/17/14) STOOL CULTR AEROBIC BACT EA (11/07/15) TDAP VACCINE 7 YRS/> IM (07/20/17) TEST FOR ACETONE/KETONES (07/20/17) THER/PROPH/DIAG INJ IV PUSH (08/04/17) THER/PROPH/DIAG INJ SC/IM (08/04/17) THER/PROPH/DIAG IV INF ADDON (07/22/17) THER/PROPH/DIAG IV INF INIT (08/04/17) THROMBOPLASTIN TIME PARTIAL (01/19/18) TISSUE EXAM BY PATHOLOGIST (10/17/14) TTE W/DOPPLER COMPLETE (07/22/17) TX GASTRO INTUB W/ASP (08/04/17) TX/PRO/DX INJ NEW DRUG ADDON (08/04/17) TX/PRO/DX INJ SAME DRUG DISK SANDER (08/04/17) UR ALBUMIN SEMIQUANTITATIVE (04/08/16) URINALYSIS AUTO W/O SCOPE (12/14/16) URINALYSIS AUTO W/SCOPE (01/19/18) US EXAM ABDO BACK WALL DIALLO (04/17/16) WITHDRAWAL OF ARTERIAL BLOOD (08/04/17) X-RAY EXAM CHEST 2 VIEWS (01/19/18) X-RAY EXAM OF FOOT (07/20/17) Patient underwent amputation of necrotic right fifth toe yesterday, January 25, 2018. (1) Gangrene of toe SNOMED Code(s): 464014160 Code(s): I96 - GANGRENE, NOT ELSEWHERE CLASSIFIED Current Visit: Yes Problem List Initiated/Reviewed/Updated: Yes Plan: 1. Continue treatment of patient with fluids and antibiotic. 2. POD #1 after right fifth toe amputation. Awaiting labs, particularly the bone biopsy of the right fifth metatarsal head. 3. Daily dressing change right foot: dab area with saline soaked gauze, then dry gauze. Apply piece of xeroform over sutures and overlay with 4x4 gauze secured with kerlix roll. Secure dressings with matty bandage. I performed dressing change today. 4. If bone biospy is positive for osteomyelitis, fci antibiotics via port will be necessary. 5. I discussed patient care with Dr. Jeffery. 6. Will follow.
[2018-01-26] MEDS: Insulin Glargine,Human Rec. Analog 100 Units/ML 3 ML Pen SUBCUT SCH (20:58)
[2018-01-27] MEDS: Dextrose 5% in Water 1,000 ML IV SCH (03:05)
[2018-01-27] MEDS: oxyCODONE 5 MG Tab PO PRN ×2 (06:14→20:07)
[2018-01-27] MEDS: Pantoprazole 40 MG Tab.CR PO SCH (06:33)
[2018-01-27] MEDS: Insulin Aspart 100 Units/ML 3 ML Pen SUBCUT SCH ×6 (06:34→17:35)
--- NOTE | 2018-01-27 08:31 | PCM.PN ---
- General Info Date of Service: 01/27/18 Admission Dx/Problem (Free Text): Admission Diagnosis/Problem Admission Diagnosis/Problem Leukocytosis, post op day 1 right fifth toe amputation Subjective Update: Doing better today. Pain is well controlled with Oxycodone. Swelling to R leg continues to improve daily. No other concerns today. Eager to be discharged when able. Functional Status: Reports: Pain Controlled, Tolerating Diet, Ambulating, Urinating - Review of Systems General: Reports: No Symptoms. Denies: Fever, Weakness, Fatigue, Malaise HEENT: Reports: No Symptoms. Denies: Headaches, Sore Throat Pulmonary: Reports: No Symptoms. Denies: Shortness of Breath Cardiovascular: Reports: No Symptoms. Denies: Chest Pain Gastrointestinal: Reports: Constipation. Denies: Abdominal Pain, Nausea, Vomiting Genitourinary: Reports: No Symptoms. Denies: Dysuria, Frequency, Burning Musculoskeletal: Reports: Foot Pain (tolerable with Oxycodone) Skin: Reports: No Symptoms Neurological: Reports: No Symptoms Psychiatric: Reports: No Symptoms - Patient Data Vitals - Most Recent: Last Vital Signs Temp 98.6 F 01/27/18 04:00 Pulse 107 H 01/27/18 04:00 Resp 20 01/27/18 04:00 BP 168/95 H 01/27/18 04:00 Pulse Ox 97 01/27/18 04:00 Weight - Most Recent: 83.053 kg I&O - Last 24 Hours: Intake & Output 01/26/18 01/27/18 01/27/18 22:59 06:59 14:59 Intake Total 2149 2300 Output Total 1860 3200 Balance 289 -900 Lab Results Last 24 Hours: Laboratory Results - last 24 hr 01/26/18 01/26/18 01/26/18 Range/Units 11:11 13:30 15:28 WBC (4.0-11.0) K/uL RBC (4.50-5.90) M/uL Hgb (13.0-17.0) g/dL Hct (38.0-50.0) % MCV (80.0-98.0) fL MCH (27.0-32.0) pg MCHC (31.0-37.0) g/dL RDW Std Deviation (28.0-62.0) fl RDW Coeff of Danai (11.0-15.0) % Plt Count (150-400) K/uL MPV (7.40-12.00) fL Neut % (Auto) (48.0-80.0) % Lymph % (Auto) (16.0-40.0) % Garland % (Auto) (0.0-15.0) % Eos % (Auto) (0.0-7.0) % Baso % (Auto) (0.0-1.5) % Neut # (Auto) (1.4-5.7) K/uL Lymph # (Auto) (0.6-2.4) K/uL Garland # (Auto) (0.0-0.8) K/uL Eos # (Auto) (0.0-0.7) K/uL Baso # (Auto) (0.0-0.1) K/uL Nucleated RBC % /100WBC Nucleated RBCs # K/uL Sodium (136-148) mmol/L Potassium (3.5-5.1) mmol/L Chloride (98-107) mmol/L Carbon Dioxide (21.0-32.0) mmol/L BUN (7.0-18.0) mg/dL Creatinine (0.8-1.3) mg/dL Est Cr Clr Drug Dosing mL/min Estimated GFR (MDRD) ml/min Glucose (74-106) mg/dL POC Glucose 126 H 165 H 150 H (60-110) mg/dL Calcium (8.5-10.1) mg/dL Phosphorus (2.6-4.7) mg/dL 01/26/18 01/26/18 01/27/18 Range/Units 16:35 20:57 04:50 WBC (4.0-11.0) K/uL RBC (4.50-5.90) M/uL Hgb (13.0-17.0) g/dL Hct (38.0-50.0) % MCV (80.0-98.0) fL MCH (27.0-32.0) pg MCHC (31.0-37.0) g/dL RDW Std Deviation (28.0-62.0) fl RDW Coeff of Dania (11.0-15.0) % Plt Count (150-400) K/uL MPV (7.40-12.00) fL Neut % (Auto) (48.0-80.0) % Lymph % (Auto) (16.0-40.0) % Garland % (Auto) (0.0-15.0) % Eos % (Auto) (0.0-7.0) % Baso % (Auto) (0.0-1.5) % Neut # (Auto) (1.4-5.7) K/uL Lymph # (Auto) (0.6-2.4) K/uL Garland # (Auto) (0.0-0.8) K/uL Eos # (Auto) (0.0-0.7) K/uL Baso # (Auto) (0.0-0.1) K/uL Nucleated RBC % /100WBC Nucleated RBCs # K/uL Sodium 138 (136-148) mmol/L Potassium 4.7 (3.5-5.1) mmol/L Chloride 103 (98-107) mmol/L Carbon Dioxide 32.9 H (21.0-32.0) mmol/L BUN 14 (7.0-18.0) mg/dL Creatinine 1.5 H (0.8-1.3) mg/dL Est Cr Clr Drug Dosing 71.35 mL/min Estimated GFR (MDRD) 54.6 ml/min Glucose 84 (74-106) mg/dL POC Glucose 147 H 120 H (60-110) mg/dL Calcium 9.0 (8.5-10.1) mg/dL Phosphorus 5.5 H (2.6-4.7) mg/dL 01/27/18 01/27/18 01/27/18 Range/Units 04:50 06:13 06:50 WBC 15.96 H (4.0-11.0) K/uL RBC 4.22 L (4.50-5.90) M/uL Hgb 9.5 L (13.0-17.0) g/dL Hct 29.9 L (38.0-50.0) % MCV 70.9 L (80.0-98.0) fL MCH 22.5 L (27.0-32.0) pg MCHC 31.8 (31.0-37.0) g/dL RDW Std Deviation 49.5 (28.0-62.0) fl RDW Coeff of Dania 19 H (11.0-15.0) % Plt Count 567 H (150-400) K/uL MPV 9.00 (7.40-12.00) fL Neut % (Auto) 71.8 (48.0-80.0) % Lymph % (Auto) 17.5 (16.0-40.0) % Garland % (Auto) 7.8 (0.0-15.0) % Eos % (Auto) 2.7 (0.0-7.0) % Baso % (Auto) 0.2 (0.0-1.5) % Neut # (Auto) 11.5 H (1.4-5.7) K/uL Lymph # (Auto) 2.8 H (0.6-2.4) K/uL Garland # (Auto) 1.2 H (0.0-0.8) K/uL Eos # (Auto) 0.4 (0.0-0.7) K/uL Baso # (Auto) 0.0 (0.0-0.1) K/uL Nucleated RBC % 0.0 /100WBC Nucleated RBCs # 0 K/uL Sodium (136-148) mmol/L Potassium (3.5-5.1) mmol/L Chloride (98-107) mmol/L Carbon Dioxide (21.0-32.0) mmol/L BUN (7.0-18.0) mg/dL Creatinine (0.8-1.3) mg/dL Est Cr Clr Drug Dosing mL/min Estimated GFR (MDRD) ml/min Glucose (74-106) mg/dL POC Glucose 60 88 (60-110) mg/dL Calcium (8.5-10.1) mg/dL Phosphorus (2.6-4.7) mg/dL Peter Results Last 24 Hours: Microbiology 01/25/18 14:07 Gram Stain - Preliminary Foot, Right Wound Culture - Preliminary Staphylococcus Aureus Med Orders - Current: Current Medications Acetaminophen (Tylenol) 650 mg PO Q4H PRN PRN Reason: Pain (mild 1-3) Amlodipine Besylate (Norvasc) 10 mg PO DAILY [facility] Last Admin: 01/26/18 08:00 Dose: 10 mg Docusate Sodium (Colace) 100 mg PO BID [facility] Last Admin: 01/26/18 20:57 Dose: 100 mg Doxazosin Mesylate (Cardura) 2 mg PO DAILY [facility] Last Admin: 01/26/18 08:01 Dose: 2 mg Enalapril Maleate (Vasotec) 40 mg PO DAILY [facility] Last Admin: 01/26/18 08:01 Dose: 40 mg Ferrous Sulfate (Ferrous Sulfate) 325 mg PO TIDMEALS [facility] Last Admin: 01/26/18 17:37 Dose: 325 mg Vancomycin HCl 1 gm/ Sodium (Chloride) 250 mls @ 166.667 mls/hr IV Q12H [facility] Last Admin: 01/26/18 21:00 Dose: 166.667 mls/hr Ertapenem 1 gm/ Sodium (Chloride) 100 mls @ 200 mls/hr IV Q24H [facility] Last Admin: 01/26/18 17:00 Dose: 200 mls/hr Insulin Aspart (Novolog) 0 unit SUBCUT TIDAC [facility]; Protocol Last Admin: 01/27/18 06:34 Dose: Not Given Insulin Aspart (Novolog) 0 unit SUBCUT TIDAC [facility] Last Admin: 01/27/18 06:34 Dose: Not Given Insulin Glargine (Lantus Solostar) 15 units SUBCUT BEDTIME [facility] Last Admin: 01/26/18 20:58 Dose: 15 unit Morphine Sulfate (Morphine) 3 mg IVPUSH Q2H PRN PRN Reason: Pain Last Admin: 01/26/18 21:07 Dose: 3 mg Ondansetron HCl (Zofran) 4 mg IVPUSH Q4H PRN PRN Reason: Pain Last Admin: 01/26/18 17:46 Dose: 4 mg Oxycodone HCl (Oxycodone) 5 mg PO Q4H PRN PRN Reason: Pain (moderate 4-6) Last Admin: 01/27/18 06:14 Dose: 5 mg Pantoprazole Sodium (Protonix) 40 mg PO ACBREAKFAST [facility] Last Admin: 01/27/18 06:33 Dose: 40 mg Sodium Chloride (Saline Flush) 2.5 ml FLUSH ASDIRECTED PRN PRN Reason: Keep Vein Open Torsemide (Demadex) 20 mg PO DAILY [facility] Last Admin: 01/26/18 08:01 Dose: 20 mg Vancomycin HCl (Pharmacy To Dose - Vancomycin) 1 dose .XX ASDIRECTED [facility] Discontinued Medications Amlodipine Besylate (Norvasc) 10 mg PO DAILY [facility] Bupivacaine HCl (Marcaine 0.5%) Confirm Administered Dose 30 ml .ROUTE .STK-MED ONE Stop: 01/25/18 12:41 Dextrose/Water (Dextrose 50% In Water) 50 ml IVPUSH ONETIME ONE Stop: 01/25/18 08:22 Last Admin: 01/25/18 08:30 Dose: 50 ml Dextrose/Water (Dextrose 50% In Water) 50 ml IVPUSH ONETIME ONE Stop: 01/25/18 11:57 Last Admin: 01/25/18 12:02 Dose: 50 ml Dextrose/Water (Dextrose 50% In Water) 50 ml IVPUSH ONETIME ONE Stop: 01/26/18 03:48 Last Admin: 01/26/18 03:57 Dose: 50 ml Docusate Sodium (Colace) 100 mg PO BID PRN PRN Reason: Constipation Fentanyl (Sublimaze) Confirm Administered Dose 100 mcg .ROUTE .STK-MED ONE Stop: 01/25/18 11:48 Fentanyl (Sublimaze) 50 mcg IVPUSH Q5M PRN PRN Reason: Pain (severe 7-10) Stop: 01/26/18 13:48 Hydralazine HCl (Apresoline) 10 mg IVPUSH ONETIME ONE Stop: 01/21/18 01:35 Last Admin: 01/21/18 01:52 Dose: 10 mg Sodium Chloride (Normal Saline) 1,000 mls @ 100 mls/hr IV ASDIRECTED [facility] Last Infusion: 01/21/18 08:40 Dose: 100 mls/hr Vancomycin HCl 1,250 mg/ (Sodium Chloride) 250 mls @ 166.667 mls/hr IV Q12H [facility] Last Admin: 01/22/18 08:09 Dose: Not Given Cefepime HCl 1 gm/ Premix 50 mls @ 100 mls/hr IV Q8H [facility] Last Admin: 01/25/18 08:19 Dose: 100 mls/hr Sodium Chloride (Normal Saline) 1,000 mls @ 75 mls/hr IV .BOLUS ONE Stop: 01/24/18 08:20 Last Admin: 01/23/18 19:28 Dose: 75 mls/hr Sodium Chloride (Normal Saline) Confirm Administered Dose 250 mls @ as directed .ROUTE .STK-MED ONE Stop: 01/24/18 22:24 Last Admin: 01/25/18 00:01 Dose: Not Given Lactated Ringer's (Ringers, Lactated) 1,000 mls @ 125 mls/hr IV ASDIRECTED [facility] Last Admin: 01/25/18 04:23 Dose: 125 mls/hr Dextrose/Lactated Ringer's (Dextrose 5%-Lactated Ringers) 1,000 mls @ 75 mls/ hr IV ASDIRECTED [facility] Last Admin: 01/25/18 09:05 Dose: 75 mls/hr Dextrose/Lactated Ringer's (Dextrose 5%-Lactated Ringers) 1,000 mls @ 125 mls/ hr IV ASDIRECTED [facility] Last Admin: 01/25/18 12:07 Dose: 125 mls/hr Dextrose/Water (Dextrose 5% In Water) 1,000 mls @ 125 mls/hr IV ASDIRECTED [facility] Last Admin: 01/27/18 03:05 Dose: 125 mls/hr Insulin Aspart (Novolog) 0 unit SUBCUT TIDAC [facility]; Protocol Last Admin: 01/21/18 12:11 Dose: Not Given [facility]) [facility] Last Admin: 01/21/18 08:15 Dose: 6 units Insulin Aspart (Novolog) 0 unit SUBCUT TIDAC [facility] Last Admin: 01/21/18 12:12 Dose: Not Given Insulin Aspart (Novolog) 10 unit SUBCUT ONETIME ONE Stop: 01/22/18 06:31 Last Admin: 01/22/18 07:14 Dose: 10 units Insulin Aspart (Novolog) 0 unit SUBCUT TIDAC [facility] Last Admin: 01/26/18 17:21 Dose: Not Given Insulin Aspart (Novolog) 10 unit SUBCUT ONETIME ONE Stop: 01/24/18 20:01 Last Admin: 01/24/18 19:55 Dose: Not Given Insulin Glargine (Lantus Solostar) 42 units SUBCUT BEDTIME [facility] Last Admin: 01/20/18 21:35 Dose: 42 units Insulin Glargine (Lantus Solostar) 35 units SUBCUT BEDTIME [facility] Insulin Glargine (Lantus Solostar) 25 units SUBCUT BEDTIME [facility] Insulin Glargine (Lantus Solostar) 30 units SUBCUT BEDTIME [facility] Last Admin: 01/25/18 21:45 Dose: 15 units Insulin Human Regular (Novolin R) 10 unit IVPUSH ONETIME ONE; Protocol Stop: 01/22/18 06:26 Last Admin: 01/22/18 07:24 Dose: 10 units Lidocaine (Xylocaine-Mpf 2%) Confirm Administered Dose 10 ml .ROUTE .STK-MED ONE Stop: 01/25/18 11:47 Lidocaine HCl (Xylocaine 1%) Confirm Administered Dose 20 ml .ROUTE .STK-MED ONE Stop: 01/25/18 12:44 Midazolam HCl (Versed 1 Mg/Ml) Confirm Administered Dose 2 mg .ROUTE .STK-MED ONE Stop: 01/25/18 11:48 Nitroglycerin (Nitro-Bid 2%) Confirm Administered Dose 1 gm .ROUTE .STK-MED ONE Stop: 01/25/18 14:28 Ondansetron HCl (Zofran) Confirm Administered Dose 4 mg .ROUTE .STK-MED ONE Stop: 01/25/18 11:48 Propofol (Diprivan 20 Ml) Confirm Administered Dose 400 mg .ROUTE .STK-MED ONE Stop: 01/25/18 11:47 Sodium Polystyrene Sulfonate (Kayexalate) 15 gm PO ONETIME ONE Stop: 01/23/18 09:44 Last Admin: 01/23/18 10:42 Dose: 15 gm Sodium Polystyrene Sulfonate (Kayexalate) 45 gm PO NOW ONE Stop: 01/23/18 18:17 Last Admin: 01/23/18 19:27 Dose: 45 gm Sodium Polystyrene Sulfonate (Kayexalate) Confirm Administered Dose 30 gm .ROUTE .STK-MED ONE Stop: 01/23/18 19:37 Last Admin: 01/23/18 19:52 Dose: Not Given Spironolactone (Aldactone) 25 mg PO DAILY [facility] - Exam General: Alert, Oriented, No Acute Distress Neck: Supple Lungs: Clear to Auscultation, Normal Respiratory Effort Cardiovascular: Regular Rate, Regular Rhythm GI/Abdominal Exam: Normal Bowel Sounds, Soft, Non-Tender, No Organomegaly, No Distention, No Abnormal Bruit, No Mass, Pelvis Stable Extremities: Normal Inspection, Normal Range of Motion, Pedal Edema (+1 to RLE, much improved since amputation of 5th digit of R foot) Wound/Incisions: Dressing Dry and Intact Neurological: No New Focal Deficit Psy/Mental Status: Alert, Normal Affect - Problem List & Annotations (1) Diabetic foot ulcer SNOMED Code(s): 421996167 Code(s): E11.621 - TYPE 2 DIABETES MELLITUS WITH FOOT ULCER; L97.509 - NON- PRESSURE CHRONIC ULCER OTH PRT UNSP FOOT W UNSP SEVERITY Status: Acute Current Visit: No Qualifiers: Diabetic foot ulcer location: toe Diabetes mellitus type: type 1 Laterality: right Non-pressure ulcer stage: with necrosis of muscle Qualified Code(s): E10.621 - Type 1 diabetes mellitus with foot ulcer; L97.513 - Non-pressure chronic ulcer of other part of right foot with necrosis of muscle (2) History of GI bleed SNOMED Code(s): 193193890 Code(s): Z87.19 - PERSONAL HISTORY OF OTHER DISEASES OF THE DIGESTIVE SYSTEM Status: Chronic Current Visit: Yes (3) Diabetic gastroparesis SNOMED Code(s): 586376487 Code(s): E11.43 - TYPE 2 DIABETES W DIABETIC AUTONOMIC (POLY)NEUROPATHY; K31.84 - GASTROPARESIS Status: Chronic Current Visit: No (4) Chronic renal insufficiency SNOMED Code(s): 677504674 Code(s): N18.9 - CHRONIC KIDNEY DISEASE, UNSPECIFIED Status: Chronic Current Visit: No (5) Diabetes mellitus type I SNOMED Code(s): 32202282 Code(s): E10.9 - TYPE 1 DIABETES MELLITUS WITHOUT COMPLICATIONS Status: Chronic Current Visit: No Qualifiers: Diabetes mellitus complication status: with kidney complications Diabetes mellitus complication detail: with chronic kidney disease (6) Hypertension SNOMED Code(s): 33354708 Code(s): I10 - ESSENTIAL (PRIMARY) HYPERTENSION Status: Chronic Current Visit: No Qualifiers: Hypertension type: essential hypertension Qualified Code(s): I10 - Essential (primary) hypertension (7) Hx of gastroesophageal reflux (GERD) SNOMED Code(s): 34129069437965 Code(s): Z87.19 - PERSONAL HISTORY OF OTHER DISEASES OF THE DIGESTIVE SYSTEM Status: Chronic Current Visit: Yes (8) Hx MRSA infection SNOMED Code(s): 444703990, 810148451 Code(s): Z86.14 - PERSONAL HISTORY OF METHICILLIN RESIS STAPH INFECTION Status: Chronic Current Visit: Yes (9) Anemia SNOMED Code(s): 792691640 Code(s): D64.9 - ANEMIA, UNSPECIFIED Status: Chronic Current Visit: No Qualifiers: Anemia type: due to chronic kidney disease - Problem List Review Problem List Initiated/Reviewed/Updated: Yes - My Orders Last 24 Hours: My Active Orders 01/26/18 09:00 Enalapril [Vasotec] 40 mg PO DAILY 01/26/18 09:30 Docusate Sodium [Colace] 100 mg PO BID 01/26/18 13:22 Insulin Aspart [NovoLOG] See Dose Instructions SUBCUT TIDAC 01/26/18 21:00 Insulin Glarg,Human.Rec.Analog [LantUS Solostar] 15 units SUBCUT BEDTIME 01/28/18 05:11 BASIC METABOLIC PANEL,BMP [CHEM] AM - Plan Plan:: 32 yo male admitted with Diabetic Foot Infection, 5th digit of R foot osteo 1. 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 OR yon 5, POD #2 amputation of 5th digit to R foot with Dr English. Vancomycin has increase PETER from past MRSA cultures, will discontinue Vancomycin and start Daptomycin 10 mg/kg IV daily along with Ertapenem/ Afebrile. BC negative. Wound Cultures for OR returned with dodge sensitive Staph aureus, but bone culture sent to pathology is still pending. NWB status to R leg, crutch walking with PT. Waqas is aware of possibility of needing 6+ weeks of IV antibiotics if bone culture/biopsy returns with osteomyelitis. He has concerns of how he would get here daily for this treatment, will speak with case management regarding this. 2. DM type 1: BS continue to be very labile during stay. Lantus 15 units at night, which is significantly lower than home dosing of 42 units nights. TIDAC SSI and Lantus dosing. Monitor closely. Will stop D5 today and monitor BS. 3. HTN: Continue PO medications, Norvasc, Cardura, Torsemide and Enalapril today. 4. CKD: Much improved. Continue to monitor. 5. Anemia: Hgb 9.5 today. Continue Iron supplementation. Monitor. No acute bleeding noted. 6. GERD and hx GI bleeding: No signs of acute bleed currently. No pharmacologic VTE agents due to history. Continue PPI. VTE prophylaxis: SCDs and ambulation. Dispo: 3-4 days pending improvement awaiting bone biopsy results to secure disposition plan.
[2018-01-27] MEDS: Ferrous Sulfate 325 MG Tab PO SCH ×3 (08:55→16:52)
[2018-01-27] MEDS: Doxazosin 2 MG Tab PO SCH (08:55)
[2018-01-27] MEDS: Docusate Sodium 100 MG Cap PO SCH ×2 (08:55→20:07)
[2018-01-27] MEDS: Torsemide 20 MG Tab PO SCH (08:55)
[2018-01-27] MEDS: amLODIPine 5 MG Tab PO SCH (08:56)
[2018-01-27] MEDS: DAPTOmycin 800 MG in Sodium Chloride 0.9% 16 ML IVPUSH SCH (09:28)
[2018-01-27] MEDS: Ertapenem 1 GM in Sodium Chloride 0.9% 100 ML IV SCH (16:51)
--- NOTE | 2018-01-27 18:26 | PCM.CONSN ---
- General Info Date of Service: 01/27/18 Admission Dx/Problem (Free Text): Admission Diagnosis/Problem Admission Diagnosis/Problem Leukocytosis, post op day 2 right fifth toe amputation Subjective Update: Patient in better spirits today. He states he is feeling about the same, no complaint of pain. Functional Status: Reports: Pain Controlled - Patient Data Vitals - Most Recent: Last Vital Signs Temp 36.7 C 01/27/18 12:00 Pulse 114 H 01/27/18 12:00 Resp 16 01/27/18 12:00 BP 157/90 H 01/27/18 12:00 Pulse Ox 96 01/27/18 12:00 Weight - Most Recent: 83.053 kg I&O - Last 24 Hours: Intake & Output 01/27/18 01/27/18 01/27/18 06:59 14:59 22:59 Intake Total 2300 586 1940 Output Total 3200 3350 Balance -900 586 -1410 Lab Results Last 24 Hours: Laboratory Results - last 24 hr 01/25/18 01/25/18 01/25/18 Range/Units 14:48 15:35 15:59 WBC (4.0-11.0) K/uL RBC (4.50-5.90) M/uL Hgb (13.0-17.0) g/dL Hct (38.0-50.0) % MCV (80.0-98.0) fL MCH (27.0-32.0) pg MCHC (31.0-37.0) g/dL RDW Std Deviation (28.0-62.0) fl RDW Coeff of Dania (11.0-15.0) % Plt Count (150-400) K/uL MPV (7.40-12.00) fL Neut % (Auto) (48.0-80.0) % Lymph % (Auto) (16.0-40.0) % Christian % (Auto) (0.0-15.0) % Eos % (Auto) (0.0-7.0) % Baso % (Auto) (0.0-1.5) % Neut # (Auto) (1.4-5.7) K/uL Lymph # (Auto) (0.6-2.4) K/uL Christian # (Auto) (0.0-0.8) K/uL Eos # (Auto) (0.0-0.7) K/uL Baso # (Auto) (0.0-0.1) K/uL Nucleated RBC % /100WBC Nucleated RBCs # K/uL Sodium (136-148) mmol/L Potassium (3.5-5.1) mmol/L Chloride (98-107) mmol/L Carbon Dioxide (21.0-32.0) mmol/L BUN (7.0-18.0) mg/dL Creatinine (0.8-1.3) mg/dL Est Cr Clr Drug Dosing mL/min Estimated GFR (MDRD) ml/min Glucose (74-106) mg/dL POC Glucose 98 81 98 (60-110) mg/dL Calcium (8.5-10.1) mg/dL Phosphorus (2.6-4.7) mg/dL 01/26/18 01/27/18 01/27/18 Range/Units 20:57 04:50 04:50 WBC 15.96 H (4.0-11.0) K/uL RBC 4.22 L (4.50-5.90) M/uL Hgb 9.5 L (13.0-17.0) g/dL Hct 29.9 L (38.0-50.0) % MCV 70.9 L (80.0-98.0) fL MCH 22.5 L (27.0-32.0) pg MCHC 31.8 (31.0-37.0) g/dL RDW Std Deviation 49.5 (28.0-62.0) fl RDW Coeff of Dania 19 H (11.0-15.0) % Plt Count 567 H (150-400) K/uL MPV 9.00 (7.40-12.00) fL Neut % (Auto) 71.8 (48.0-80.0) % Lymph % (Auto) 17.5 (16.0-40.0) % Christian % (Auto) 7.8 (0.0-15.0) % Eos % (Auto) 2.7 (0.0-7.0) % Baso % (Auto) 0.2 (0.0-1.5) % Neut # (Auto) 11.5 H (1.4-5.7) K/uL Lymph # (Auto) 2.8 H (0.6-2.4) K/uL Christian # (Auto) 1.2 H (0.0-0.8) K/uL Eos # (Auto) 0.4 (0.0-0.7) K/uL Baso # (Auto) 0.0 (0.0-0.1) K/uL Nucleated RBC % 0.0 /100WBC Nucleated RBCs # 0 K/uL Sodium 138 (136-148) mmol/L Potassium 4.7 (3.5-5.1) mmol/L Chloride 103 (98-107) mmol/L Carbon Dioxide 32.9 H (21.0-32.0) mmol/L BUN 14 (7.0-18.0) mg/dL Creatinine 1.5 H (0.8-1.3) mg/dL Est Cr Clr Drug Dosing 71.35 mL/min Estimated GFR (MDRD) 54.6 ml/min Glucose 84 (74-106) mg/dL POC Glucose 120 H (60-110) mg/dL Calcium 9.0 (8.5-10.1) mg/dL Phosphorus 5.5 H (2.6-4.7) mg/dL 01/27/18 01/27/18 01/27/18 Range/Units 06:13 06:50 12:01 WBC (4.0-11.0) K/uL RBC (4.50-5.90) M/uL Hgb (13.0-17.0) g/dL Hct (38.0-50.0) % MCV (80.0-98.0) fL MCH (27.0-32.0) pg MCHC (31.0-37.0) g/dL RDW Std Deviation (28.0-62.0) fl RDW Coeff of Dania (11.0-15.0) % Plt Count (150-400) K/uL MPV (7.40-12.00) fL Neut % (Auto) (48.0-80.0) % Lymph % (Auto) (16.0-40.0) % Christian % (Auto) (0.0-15.0) % Eos % (Auto) (0.0-7.0) % Baso % (Auto) (0.0-1.5) % Neut # (Auto) (1.4-5.7) K/uL Lymph # (Auto) (0.6-2.4) K/uL Christian # (Auto) (0.0-0.8) K/uL Eos # (Auto) (0.0-0.7) K/uL Baso # (Auto) (0.0-0.1) K/uL Nucleated RBC % /100WBC Nucleated RBCs # K/uL Sodium (136-148) mmol/L Potassium (3.5-5.1) mmol/L Chloride (98-107) mmol/L Carbon Dioxide (21.0-32.0) mmol/L BUN (7.0-18.0) mg/dL Creatinine (0.8-1.3) mg/dL Est Cr Clr Drug Dosing mL/min Estimated GFR (MDRD) ml/min Glucose (74-106) mg/dL POC Glucose 60 88 159 H (60-110) mg/dL Calcium (8.5-10.1) mg/dL Phosphorus (2.6-4.7) mg/dL 01/27/18 Range/Units 16:50 WBC (4.0-11.0) K/uL RBC (4.50-5.90) M/uL Hgb (13.0-17.0) g/dL Hct (38.0-50.0) % MCV (80.0-98.0) fL MCH (27.0-32.0) pg MCHC (31.0-37.0) g/dL RDW Std Deviation (28.0-62.0) fl RDW Coeff of Dania (11.0-15.0) % Plt Count (150-400) K/uL MPV (7.40-12.00) fL Neut % (Auto) (48.0-80.0) % Lymph % (Auto) (16.0-40.0) % Christian % (Auto) (0.0-15.0) % Eos % (Auto) (0.0-7.0) % Baso % (Auto) (0.0-1.5) % Neut # (Auto) (1.4-5.7) K/uL Lymph # (Auto) (0.6-2.4) K/uL Christian # (Auto) (0.0-0.8) K/uL Eos # (Auto) (0.0-0.7) K/uL Baso # (Auto) (0.0-0.1) K/uL Nucleated RBC % /100WBC Nucleated RBCs # K/uL Sodium (136-148) mmol/L Potassium (3.5-5.1) mmol/L Chloride (98-107) mmol/L Carbon Dioxide (21.0-32.0) mmol/L BUN (7.0-18.0) mg/dL Creatinine (0.8-1.3) mg/dL Est Cr Clr Drug Dosing mL/min Estimated GFR (MDRD) ml/min Glucose (74-106) mg/dL POC Glucose 94 (60-110) mg/dL Calcium (8.5-10.1) mg/dL Phosphorus (2.6-4.7) mg/dL Peter Results Last 24 Hours: Microbiology 01/25/18 14:07 Gram Stain - Final Foot, Right Wound Culture - Preliminary Staphylococcus Aureus Anaerobic Culture - Final NO ANAEROBES ISOLATED Med Orders - Current: Current Medications Acetaminophen (Tylenol) 650 mg PO Q4H PRN PRN Reason: Pain (mild 1-3) Amlodipine Besylate (Norvasc) 10 mg PO DAILY [facility] Last Admin: 01/27/18 08:56 Dose: 10 mg Docusate Sodium (Colace) 100 mg PO BID [facility] Last Admin: 01/27/18 08:55 Dose: 100 mg Doxazosin Mesylate (Cardura) 2 mg PO DAILY [facility] Last Admin: 01/27/18 08:55 Dose: 2 mg Enalapril Maleate (Vasotec) 40 mg PO DAILY [facility] Last Admin: 01/27/18 08:56 Dose: 40 mg Ferrous Sulfate (Ferrous Sulfate) 325 mg PO TIDMEALS [facility] Last Admin: 01/27/18 16:52 Dose: 325 mg Ertapenem 1 gm/ Sodium (Chloride) 100 mls @ 200 mls/hr IV Q24H [facility] Last Admin: 01/27/18 16:51 Dose: 200 mls/hr Daptomycin 800 mg/ Sodium (Chloride) 16 mls @ 480 mls/hr IVPUSH DAILY [facility] Last Admin: 01/27/18 09:28 Dose: 480 mls/hr Insulin Aspart (Novolog) 0 unit SUBCUT TIDAC [facility]; Protocol Last Admin: 01/27/18 16:56 Dose: Not Given Insulin Aspart (Novolog) 0 unit SUBCUT TIDAC [facility] Last Admin: 01/27/18 17:35 Dose: 3 units Insulin Glargine (Lantus Solostar) 15 units SUBCUT BEDTIME [facility] Last Admin: 01/26/18 20:58 Dose: 15 unit Morphine Sulfate (Morphine) 3 mg IVPUSH Q2H PRN PRN Reason: Pain Last Admin: 01/26/18 21:07 Dose: 3 mg Ondansetron HCl (Zofran) 4 mg IVPUSH Q4H PRN PRN Reason: Pain Last Admin: 01/26/18 17:46 Dose: 4 mg Oxycodone HCl (Oxycodone) 5 mg PO Q4H PRN PRN Reason: Pain (moderate 4-6) Last Admin: 01/27/18 06:14 Dose: 5 mg Pantoprazole Sodium (Protonix) 40 mg PO ACBREAKFAST [facility] Last Admin: 01/27/18 06:33 Dose: 40 mg Sodium Chloride (Saline Flush) 2.5 ml FLUSH ASDIRECTED PRN PRN Reason: Keep Vein Open Torsemide (Demadex) 20 mg PO DAILY [facility] Last Admin: 01/27/18 08:55 Dose: 20 mg Discontinued Medications Amlodipine Besylate (Norvasc) 10 mg PO DAILY [facility] Bupivacaine HCl (Marcaine 0.5%) Confirm Administered Dose 30 ml .ROUTE .STK-MED ONE Stop: 01/25/18 12:41 Dextrose/Water (Dextrose 50% In Water) 50 ml IVPUSH ONETIME ONE Stop: 01/25/18 08:22 Last Admin: 01/25/18 08:30 Dose: 50 ml Dextrose/Water (Dextrose 50% In Water) 50 ml IVPUSH ONETIME ONE Stop: 01/25/18 11:57 Last Admin: 01/25/18 12:02 Dose: 50 ml Dextrose/Water (Dextrose 50% In Water) 50 ml IVPUSH ONETIME ONE Stop: 01/26/18 03:48 Last Admin: 01/26/18 03:57 Dose: 50 ml Docusate Sodium (Colace) 100 mg PO BID PRN PRN Reason: Constipation Fentanyl (Sublimaze) Confirm Administered Dose 100 mcg .ROUTE .STK-MED ONE Stop: 01/25/18 11:48 Fentanyl (Sublimaze) 50 mcg IVPUSH Q5M PRN PRN Reason: Pain (severe 7-10) Stop: 01/26/18 13:48 Hydralazine HCl (Apresoline) 10 mg IVPUSH ONETIME ONE Stop: 01/21/18 01:35 Last Admin: 01/21/18 01:52 Dose: 10 mg Sodium Chloride (Normal Saline) 1,000 mls @ 100 mls/hr IV ASDIRECTED [facility] Last Infusion: 01/21/18 08:40 Dose: 100 mls/hr Vancomycin HCl 1,250 mg/ (Sodium Chloride) 250 mls @ 166.667 mls/hr IV Q12H [facility] Last Admin: 01/22/18 08:09 Dose: Not Given Vancomycin HCl 1 gm/ Sodium (Chloride) 250 mls @ 166.667 mls/hr IV Q12H [facility] Last Admin: 01/26/18 21:00 Dose: 166.667 mls/hr Cefepime HCl 1 gm/ Premix 50 mls @ 100 mls/hr IV Q8H [facility] Last Admin: 01/25/18 08:19 Dose: 100 mls/hr Sodium Chloride (Normal Saline) 1,000 mls @ 75 mls/hr IV .BOLUS ONE Stop: 01/24/18 08:20 Last Admin: 01/23/18 19:28 Dose: 75 mls/hr Sodium Chloride (Normal Saline) Confirm Administered Dose 250 mls @ as directed .ROUTE .STK-MED ONE Stop: 01/24/18 22:24 Last Admin: 01/25/18 00:01 Dose: Not Given Lactated Ringer's (Ringers, Lactated) 1,000 mls @ 125 mls/hr IV ASDIRECTED [facility] Last Admin: 01/25/18 04:23 Dose: 125 mls/hr Dextrose/Lactated Ringer's (Dextrose 5%-Lactated Ringers) 1,000 mls @ 75 mls/ hr IV ASDIRECTED [facility] Last Admin: 01/25/18 09:05 Dose: 75 mls/hr Dextrose/Lactated Ringer's (Dextrose 5%-Lactated Ringers) 1,000 mls @ 125 mls/ hr IV ASDIRECTED [facility] Last Admin: 01/25/18 12:07 Dose: 125 mls/hr Dextrose/Water (Dextrose 5% In Water) 1,000 mls @ 125 mls/hr IV ASDIRECTED [facility] Last Admin: 01/27/18 03:05 Dose: 125 mls/hr Insulin Aspart (Novolog) 0 unit SUBCUT TIDAC [facility]; Protocol Last Admin: 01/21/18 12:11 Dose: Not Given Insulin Aspart (Novolog) 0 unit SUBCUT TIDAC [facility] Last Admin: 01/21/18 08:15 Dose: 6 units Insulin Aspart (Novolog) 0 unit SUBCUT TIDAC [facility] Last Admin: 01/21/18 12:12 Dose: Not Given Insulin Aspart (Novolog) 10 unit SUBCUT ONETIME ONE Stop: 01/22/18 06:31 Last Admin: 01/22/18 07:14 Dose: 10 units Insulin Aspart (Novolog) 0 unit SUBCUT TIDAC [facility] Last Admin: 01/26/18 17:21 Dose: Not Given Insulin Aspart (Novolog) 10 unit SUBCUT ONETIME ONE Stop: 01/24/18 20:01 Last Admin: 01/24/18 19:55 Dose: Not Given Insulin Glargine (Lantus Solostar) 42 units SUBCUT BEDTIME [facility] Last Admin: 01/20/18 21:35 Dose: 42 units Insulin Glargine (Lantus Solostar) 35 units SUBCUT BEDTIME [facility] Insulin Glargine (Lantus Solostar) 25 units SUBCUT BEDTIME [facility] Insulin Glargine (Lantus Solostar) 30 units SUBCUT BEDTIME [facility] Last Admin: 01/25/18 21:45 Dose: 15 units Insulin Human Regular (Novolin R) 10 unit IVPUSH ONETIME ONE; Protocol Stop: 01/22/18 06:26 Last Admin: 01/22/18 07:24 Dose: 10 units Lidocaine (Xylocaine-Mpf 2%) Confirm Administered Dose 10 ml .ROUTE .STK-MED ONE Stop: 01/25/18 11:47 Lidocaine HCl (Xylocaine 1%) Confirm Administered Dose 20 ml .ROUTE .STK-MED ONE Stop: 01/25/18 12:44 Midazolam HCl (Versed 1 Mg/Ml) Confirm Administered Dose 2 mg .ROUTE .STK-MED ONE Stop: 01/25/18 11:48 Nitroglycerin (Nitro-Bid 2%) Confirm Administered Dose 1 gm .ROUTE .STK-MED ONE Stop: 01/25/18 14:28 Ondansetron HCl (Zofran) Confirm Administered Dose 4 mg .ROUTE .STK-MED ONE Stop: 01/25/18 11:48 Propofol (Diprivan 20 Ml) Confirm Administered Dose 400 mg .ROUTE .STK-MED ONE Stop: 01/25/18 11:47 Sodium Polystyrene Sulfonate (Kayexalate) 15 gm PO ONETIME ONE Stop: 01/23/18 09:44 Last Admin: 01/23/18 10:42 Dose: 15 gm Sodium Polystyrene Sulfonate (Kayexalate) 45 gm PO NOW ONE Stop: 01/23/18 18:17 Last Admin: 01/23/18 19:27 Dose: 45 gm Sodium Polystyrene Sulfonate (Kayexalate) Confirm Administered Dose 30 gm .ROUTE .STK-MED ONE Stop: 01/23/18 19:37 Last Admin: 01/23/18 19:52 Dose: Not Given Spironolactone (Aldactone) 25 mg PO DAILY [facility] Vancomycin HCl (Pharmacy To Dose - Vancomycin) 1 dose .XX ASDIRECTED MICHAEL - Exam Peripheral Pulses: 1+: Posterior Tibial (R), Dorsalis Pedis (R) Wound/Incisions: Healing Well, Drainage (minimal serous drainage noted but drainage did reach the outer dressing) Physical Findings Comments:: right foot fifth toe amputation site healing as well as could be expected. There is no purulence or malodor. Sutures are intact and skin well coapted. Small area in center of amputation site noted to have minimal active serous drainage. Consult PN Assessment/Plan POD#: 2 Procedures: Procedures AGENT NOS ASSAY W/OPTIC (11/07/15) ASSAY OF AMMONIA (08/04/17) ASSAY OF AMYLASE (08/04/17) ASSAY OF FERRITIN (09/25/17) ASSAY OF FREE THYROXINE (01/19/18) ASSAY OF IRON (12/16/17) ASSAY OF LACTIC ACID (08/04/17) ASSAY OF LIPASE (08/04/17) ASSAY OF MAGNESIUM (08/19/16) ASSAY OF NATRIURETIC PEPTIDE (08/04/17) ASSAY OF PHOSPHORUS (11/11/16) ASSAY OF PROTEIN URINE (01/06/18) ASSAY OF TROPONIN QUANT (08/04/17) ASSAY OF URINE CREATININE (01/06/18) ASSAY THYROID STIM HORMONE (01/19/18) BLOOD CULTURE FOR BACTERIA (07/22/17) BLOOD GASES ANY COMBINATION (08/04/17) C-REACTIVE PROTEIN (11/07/15) CHEST X-RAY 1 VIEW FRONTAL (08/04/17) CHEST X-RAY 2VW FRONTAL&LATL (08/04/17) COMPLETE CBC AUTOMATED (05/06/14) COMPLETE CBC W/AUTO DIFF WBC (01/19/18) COMPREHEN METABOLIC PANEL (01/19/18) CREATININE CLEARANCE TEST (04/10/16) CT ABD & PELVIS W/O CONTRAST (11/07/15) DRUG TEST PRSMV DIR OPT OBS (08/04/17) EGD BIOPSY SINGLE/MULTIPLE (01/29/17) ELECTROCARDIOGRAM TRACING (01/19/18) EMERGENCY DEPT VISIT (09/25/17) EMERGENCY DEPT VISIT (08/04/17) EMERGENCY DEPT VISIT (07/20/17) EMERGENCY DEPT VISIT (07/15/17) EMERGENCY DEPT VISIT (04/17/17) EMERGENCY DEPT VISIT (12/14/16) EMERGENCY DEPT VISIT (11/07/15) EMERGENCY DEPT VISIT (11/07/15) EMERGENCY DEPT VISIT (03/28/15) EMERGENCY DEPT VISIT (03/12/15) EMERGENCY DEPT VISIT (09/28/14) EMERGENCY DEPT VISIT (06/19/14) EMERGENCY DEPT VISIT (04/03/14) EXTREMITY STUDY (07/20/17) FIBRIN DEGRADATION QUANT (07/22/17) GASTRIC EMPTYING IMAG STUDY (02/03/17) GLUCOSE BLOOD TEST (09/25/17) GLYCOSYLATED HEMOGLOBIN TEST (01/19/18) HYDRATE IV INFUSION ADD-ON (08/04/17) IMMUNIZATION ADMIN (07/20/17) INFLUENZA ASSAY W/OPTIC (08/04/17) IRON BINDING TEST (09/25/17) LIPID PANEL (01/19/18) LUNG VENTILAT&PERFUS IMAGING (07/22/17) METABOLIC PANEL TOTAL CA (10/07/17) OCCULT BLD FECES 1-3 TESTS (11/07/15) PROTHROMBIN TIME (01/19/18) RENAL FUNCTION PANEL (01/06/18) ROUTINE VENIPUNCTURE (01/19/18) SPECIAL STAINS GROUP 1 (10/17/14) STOOL CULTR AEROBIC BACT EA (11/07/15) TDAP VACCINE 7 YRS/> IM (07/20/17) TEST FOR ACETONE/KETONES (07/20/17) THER/PROPH/DIAG INJ IV PUSH (08/04/17) THER/PROPH/DIAG INJ SC/IM (08/04/17) THER/PROPH/DIAG IV INF ADDON (07/22/17) THER/PROPH/DIAG IV INF INIT (08/04/17) THROMBOPLASTIN TIME PARTIAL (01/19/18) TISSUE EXAM BY PATHOLOGIST (10/17/14) TTE W/DOPPLER COMPLETE (07/22/17) TX GASTRO INTUB W/ASP (08/04/17) TX/PRO/DX INJ NEW DRUG ADDON (08/04/17) TX/PRO/DX INJ SAME DRUG LAW TUTOR (08/04/17) UR ALBUMIN SEMIQUANTITATIVE (04/08/16) URINALYSIS AUTO W/O SCOPE (12/14/16) URINALYSIS AUTO W/SCOPE (01/19/18) US EXAM ABDO BACK WALL DIALLO (04/17/16) WITHDRAWAL OF ARTERIAL BLOOD (08/04/17) X-RAY EXAM CHEST 2 VIEWS (01/19/18) X-RAY EXAM OF FOOT (07/20/17) (1) Gangrene of toe SNOMED Code(s): 423666704 Code(s): I96 - GANGRENE, NOT ELSEWHERE CLASSIFIED Current Visit: Yes Problem List Initiated/Reviewed/Updated: Yes Plan: 1. Continue treatment of patient with fluids and antibiotic. 2. POD #2 after right fifth toe amputation. Awaiting labs, particularly the bone biopsy of the right fifth metatarsal head. 3. Daily dressing change right foot: dab area with saline soaked gauze, then dry gauze. Apply piece of xeroform over sutures and overlay with 4x4 gauze secured with kerlix roll. Secure dressings with matty bandage. I performed dressing change today. 4. 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 5. I again discussed patient care with Dr. Jeffery. Patient's disposition is pending in part on results of bone biopsy which remains pending. 6. Will follow.
[2018-01-27] MEDS: Insulin Glargine,Human Rec. Analog 100 Units/ML 3 ML Pen SUBCUT SCH (22:12)
[2018-01-28] MEDS: Pantoprazole 40 MG Tab.CR PO SCH (06:53)
[2018-01-28] MEDS: Torsemide 20 MG Tab PO SCH (09:16)
[2018-01-28] MEDS: Ferrous Sulfate 325 MG Tab PO SCH ×3 (09:16→17:51)
[2018-01-28] MEDS: Docusate Sodium 100 MG Cap PO SCH ×2 (09:16→21:44)
[2018-01-28] MEDS: DAPTOmycin 800 MG in Sodium Chloride 0.9% 16 ML IVPUSH SCH (09:16)
[2018-01-28] MEDS: Doxazosin 2 MG Tab PO SCH (09:16)
[2018-01-28] MEDS: amLODIPine 5 MG Tab PO SCH (09:16)
[2018-01-28] MEDS ORDERED: Linezolid 600 MG in Premix Bag 1 BAG IV SCH (09:30)
[2018-01-28] MEDS: oxyCODONE 5 MG Tab PO PRN (12:21)
[2018-01-28] MEDS: Insulin Aspart 100 Units/ML 3 ML Pen SUBCUT SCH ×8 (12:22→17:55)
--- NOTE | 2018-01-28 12:51 | PCM.PN ---
<Baluch,Herberth - Last Filed: 01/28/18 12:11> - General Info Date of Service: 01/28/18 Admission Dx/Problem (Free Text): Admission Diagnosis/Problem Admission Diagnosis/Problem Leukocytosis, post op day 2 right fifth toe amputation - Review of Systems Systems Review Comment:: General: Reports: No Symptoms. Denies: Fever, Weakness, Fatigue, Malaise HEENT: Reports: No Symptoms. Denies: Headaches, Sore Throat Pulmonary: Reports: No Symptoms. Denies: Shortness of Breath Cardiovascular: Reports: No Symptoms. Denies: Chest Pain Gastrointestinal: Reports: No symptoms Genitourinary: Reports: No Symptoms. Denies: Dysuria, Frequency, Burning Musculoskeletal: Reports: Foot Pain (tolerable with Oxycodone) Skin: Reports: No Symptoms Neurological: Reports: No Symptoms Psychiatric: Reports: No Symptoms - Patient Data Vitals - Most Recent: Last Vital Signs Temp 36.8 C 01/28/18 08:00 Pulse 105 H 01/28/18 08:00 Resp 19 01/28/18 08:00 BP 154/99 H 01/28/18 09:16 Pulse Ox 95 01/28/18 08:00 Weight - Most Recent: 183 lb 1.6 oz I&O - Last 24 Hours: Intake & Output 01/27/18 01/28/18 01/28/18 22:59 06:59 14:59 Intake Total 1940 1280 316 Output Total 3350 1800 Balance -1410 -520 316 Lab Results Last 24 Hours: Laboratory Results - last 24 hr 01/25/18 01/25/18 01/25/18 Range/Units 14:48 15:35 15:59 WBC (4.0-11.0) K/uL RBC (4.50-5.90) M/uL Hgb (13.0-17.0) g/dL Hct (38.0-50.0) % MCV (80.0-98.0) fL MCH (27.0-32.0) pg MCHC (31.0-37.0) g/dL RDW Std Deviation (28.0-62.0) fl RDW Coeff of Dania (11.0-15.0) % Plt Count (150-400) K/uL MPV (7.40-12.00) fL Add Manual Diff Neutrophils % (Manual) (48.0-80.0) % Band Neutrophils % % Lymphocytes % (Manual) (16.0-40.0) % Monocytes % (Manual) (0.0-15.0) % Eosinophils % (Manual) (0.0-7.0) % Metamyelocytes % % Nucleated RBC % /100WBC Absolute Seg Neuts (1.4-5.7) Band Neutrophils # Lymphocytes # (Manual) (0.6-2.4) Monocytes # (Manual) (0.0-0.8) Eosinophils # (Manual) (0.0-0.7) Absolute Metamyelocyte Nucleated RBCs # K/uL Sodium (136-148) mmol/L Potassium (3.5-5.1) mmol/L Chloride (98-107) mmol/L Carbon Dioxide (21.0-32.0) mmol/L BUN (7.0-18.0) mg/dL Creatinine (0.8-1.3) mg/dL Est Cr Clr Drug Dosing mL/min Estimated GFR (MDRD) ml/min Glucose (74-106) mg/dL POC Glucose 98 81 98 (60-110) mg/dL Calcium (8.5-10.1) mg/dL Phosphorus (2.6-4.7) mg/dL 01/27/18 01/27/18 01/27/18 Range/Units 12:01 16:50 21:48 WBC (4.0-11.0) K/uL RBC (4.50-5.90) M/uL Hgb (13.0-17.0) g/dL Hct (38.0-50.0) % MCV (80.0-98.0) fL MCH (27.0-32.0) pg MCHC (31.0-37.0) g/dL RDW Std Deviation (28.0-62.0) fl RDW Coeff of Dania (11.0-15.0) % Plt Count (150-400) K/uL MPV (7.40-12.00) fL Add Manual Diff Neutrophils % (Manual) (48.0-80.0) % Band Neutrophils % % Lymphocytes % (Manual) (16.0-40.0) % Monocytes % (Manual) (0.0-15.0) % Eosinophils % (Manual) (0.0-7.0) % Metamyelocytes % % Nucleated RBC % /100WBC Absolute Seg Neuts (1.4-5.7) Band Neutrophils # Lymphocytes # (Manual) (0.6-2.4) Monocytes # (Manual) (0.0-0.8) Eosinophils # (Manual) (0.0-0.7) Absolute Metamyelocyte Nucleated RBCs # K/uL Sodium (136-148) mmol/L Potassium (3.5-5.1) mmol/L Chloride (98-107) mmol/L Carbon Dioxide (21.0-32.0) mmol/L BUN (7.0-18.0) mg/dL Creatinine (0.8-1.3) mg/dL Est Cr Clr Drug Dosing mL/min Estimated GFR (MDRD) ml/min Glucose (74-106) mg/dL POC Glucose 159 H 94 194 H (60-110) mg/dL Calcium (8.5-10.1) mg/dL Phosphorus (2.6-4.7) mg/dL 01/28/18 01/28/18 01/28/18 Range/Units 05:05 05:05 06:13 WBC 15.60 H (4.0-11.0) K/uL RBC 4.48 L (4.50-5.90) M/uL Hgb 10.0 L (13.0-17.0) g/dL Hct 31.5 L (38.0-50.0) % MCV 70.3 L (80.0-98.0) fL MCH 22.3 L (27.0-32.0) pg MCHC 31.7 (31.0-37.0) g/dL RDW Std Deviation 49.0 (28.0-62.0) fl RDW Coeff of Dania 19 H (11.0-15.0) % Plt Count 602 H (150-400) K/uL MPV 8.80 (7.40-12.00) fL Add Manual Diff YES Neutrophils % (Manual) 71 (48.0-80.0) % Band Neutrophils % 1 % Lymphocytes % (Manual) 21 (16.0-40.0) % Monocytes % (Manual) 5 (0.0-15.0) % Eosinophils % (Manual) 1 (0.0-7.0) % Metamyelocytes % 1 % Nucleated RBC % 0.0 /100WBC Absolute Seg Neuts 11.1 H (1.4-5.7) Band Neutrophils # 0.2 Lymphocytes # (Manual) 3.3 H (0.6-2.4) Monocytes # (Manual) 0.8 (0.0-0.8) Eosinophils # (Manual) 0.2 (0.0-0.7) Absolute Metamyelocyte 0.2 Nucleated RBCs # 0 K/uL Sodium 139 (136-148) mmol/L Potassium 4.6 (3.5-5.1) mmol/L Chloride 104 (98-107) mmol/L Carbon Dioxide 30.7 (21.0-32.0) mmol/L BUN 19 H (7.0-18.0) mg/dL Creatinine 1.6 H (0.8-1.3) mg/dL Est Cr Clr Drug Dosing 66.89 mL/min Estimated GFR (MDRD) 50.7 ml/min Glucose 187 H (74-106) mg/dL POC Glucose 174 H (60-110) mg/dL Calcium 9.3 (8.5-10.1) mg/dL Phosphorus 5.3 H (2.6-4.7) mg/dL //18 Range/Units 11:33 WBC (4.0-11.0) K/uL RBC (4.50-5.90) M/uL Hgb (13.0-17.0) g/dL Hct (38.0-50.0) % MCV (80.0-98.0) fL MCH (27.0-32.0) pg MCHC (31.0-37.0) g/dL RDW Std Deviation (28.0-62.0) fl RDW Coeff of Dania (11.0-15.0) % Plt Count (150-400) K/uL MPV (7.40-12.00) fL Add Manual Diff Neutrophils % (Manual) (48.0-80.0) % Band Neutrophils % % Lymphocytes % (Manual) (16.0-40.0) % Monocytes % (Manual) (0.0-15.0) % Eosinophils % (Manual) (0.0-7.0) % Metamyelocytes % % Nucleated RBC % /100WBC Absolute Seg Neuts (1.4-5.7) Band Neutrophils # Lymphocytes # (Manual) (0.6-2.4) Monocytes # (Manual) (0.0-0.8) Eosinophils # (Manual) (0.0-0.7) Absolute Metamyelocyte Nucleated RBCs # K/uL Sodium (136-148) mmol/L Potassium (3.5-5.1) mmol/L Chloride (98-107) mmol/L Carbon Dioxide (21.0-32.0) mmol/L BUN (7.0-18.0) mg/dL Creatinine (0.8-1.3) mg/dL Est Cr Clr Drug Dosing mL/min Estimated GFR (MDRD) ml/min Glucose (74-106) mg/dL POC Glucose 120 H (60-110) mg/dL Calcium (8.5-10.1) mg/dL Phosphorus (2.6-4.7) mg/dL Peter Results Last 24 Hours: Microbiology 01/25/18 14:07 Gram Stain - Final Foot, Right Wound Culture - Final Staphylococcus Aureus Pseudomonas Aeruginosa Anaerobic Culture - Final NO ANAEROBES ISOLATED Med Orders - Current: Current Medications Acetaminophen (Tylenol) 650 mg PO Q4H PRN PRN Reason: Pain (mild 1-3) Amlodipine Besylate (Norvasc) 10 mg PO DAILY [facility] Last Admin: 01/28/18 09:16 Dose: 10 mg Docusate Sodium (Colace) 100 mg PO BID [facility] Last Admin: 01/28/18 09:16 Dose: 100 mg Doxazosin Mesylate (Cardura) 2 mg PO DAILY [facility] Last Admin: 01/28/18 09:16 Dose: 2 mg Enalapril Maleate (Vasotec) 40 mg PO DAILY [facility] Last Admin: 01/28/18 09:16 Dose: 40 mg Ferrous Sulfate (Ferrous Sulfate) 325 mg PO TIDMEALS [facility] Last Admin: 01/28/18 09:16 Dose: 325 mg Linezolid 600 mg/ Premix 300 mls @ 300 mls/hr IV Q12H [facility] Last Admin: 01/28/18 09:42 Dose: 300 mls/hr Insulin Aspart (Novolog) 0 unit SUBCUT TIDAC [facility]; Protocol Last Admin: 01/27/18 16:56 Dose: Not Given Insulin Aspart (Novolog) 0 unit SUBCUT TIDAC [facility] Last Admin: 01/27/18 17:35 Dose: 3 units Insulin Glargine (Lantus Solostar) 15 units SUBCUT BEDTIME [facility] Last Admin: 01/27/18 22:12 Dose: 15 unit Morphine Sulfate (Morphine) 3 mg IVPUSH Q2H PRN PRN Reason: Pain Last Admin: 01/26/18 21:07 Dose: 3 mg Ondansetron HCl (Zofran) 4 mg IVPUSH Q4H PRN PRN Reason: Pain Last Admin: 01/26/18 17:46 Dose: 4 mg Oxycodone HCl (Oxycodone) 5 mg PO Q4H PRN PRN Reason: Pain (moderate 4-6) Last Admin: 01/27/18 20:07 Dose: 5 mg Pantoprazole Sodium (Protonix) 40 mg PO ACBREAKFAST [facility] Last Admin: 01/28/18 06:53 Dose: 40 mg Sodium Chloride (Saline Flush) 2.5 ml FLUSH ASDIRECTED PRN PRN Reason: Keep Vein Open Torsemide (Demadex) 20 mg PO DAILY [facility] Last Admin: 01/28/18 09:16 Dose: 20 mg Discontinued Medications Amlodipine Besylate (Norvasc) 10 mg PO DAILY [facility] Bupivacaine HCl (Marcaine 0.5%) Confirm Administered Dose 30 ml .ROUTE .STK-MED ONE Stop: 01/25/18 12:41 Dextrose/Water (Dextrose 50% In Water) 50 ml IVPUSH ONETIME ONE Stop: 01/25/18 08:22 Last Admin: 01/25/18 08:30 Dose: 50 ml Dextrose/Water (Dextrose 50% In Water) 50 ml IVPUSH ONETIME ONE Stop: 01/25/18 11:57 Last Admin: 01/25/18 12:02 Dose: 50 ml Dextrose/Water (Dextrose 50% In Water) 50 ml IVPUSH ONETIME ONE Stop: 01/26/18 03:48 Last Admin: 01/26/18 03:57 Dose: 50 ml Docusate Sodium (Colace) 100 mg PO BID PRN PRN Reason: Constipation Fentanyl (Sublimaze) Confirm Administered Dose 100 mcg .ROUTE .STK-MED ONE Stop: 01/25/18 11:48 Fentanyl (Sublimaze) 50 mcg IVPUSH Q5M PRN PRN Reason: Pain (severe 7-10) Stop: 01/26/18 13:48 Hydralazine HCl (Apresoline) 10 mg IVPUSH ONETIME ONE Stop: 01/21/18 01:35 Last Admin: 01/21/18 01:52 Dose: 10 mg Sodium Chloride (Normal Saline) 1,000 mls @ 100 mls/hr IV ASDIRECTED [facility] Last Infusion: 01/21/18 08:40 Dose: 100 mls/hr Vancomycin HCl 1,250 mg/ (Sodium Chloride) 250 mls @ 166.667 mls/hr IV Q12H [facility] Last Admin: 01/22/18 08:09 Dose: Not Given Vancomycin HCl 1 gm/ Sodium (Chloride) 250 mls @ 166.667 mls/hr IV Q12H [facility] Last Admin: 01/26/18 21:00 Dose: 166.667 mls/hr Cefepime HCl 1 gm/ Premix 50 mls @ 100 mls/hr IV Q8H [facility] Last Admin: 01/25/18 08:19 Dose: 100 mls/hr Sodium Chloride (Normal Saline) 1,000 mls @ 75 mls/hr IV .BOLUS ONE Stop: 01/24/18 08:20 Last Admin: 01/23/18 19:28 Dose: 75 mls/hr Sodium Chloride (Normal Saline) Confirm Administered Dose 250 mls @ as directed .ROUTE .STK-MED ONE Stop: 01/24/18 22:24 Last Admin: 01/25/18 00:01 Dose: Not Given Lactated Ringer's (Ringers, Lactated) 1,000 mls @ 125 mls/hr IV ASDIRECTED [facility] Last Admin: 01/25/18 04:23 Dose: 125 mls/hr Dextrose/Lactated Ringer's (Dextrose 5%-Lactated Ringers) 1,000 mls @ 75 mls/ hr IV ASDIRECTED [facility] Last Admin: 01/25/18 09:05 Dose: 75 mls/hr Dextrose/Lactated Ringer's (Dextrose 5%-Lactated Ringers) 1,000 mls @ 125 mls/ hr IV ASDIRECTED [facility] Last Admin: 01/25/18 12:07 Dose: 125 mls/hr Ertapenem 1 gm/ Sodium (Chloride) 100 mls @ 200 mls/hr IV Q24H [facility] Last Admin: 01/27/18 16:51 Dose: 200 mls/hr Dextrose/Water (Dextrose 5% In Water) 1,000 mls @ 125 mls/hr IV ASDIRECTED [facility] Last Admin: 01/27/18 03:05 Dose: 125 mls/hr Daptomycin 800 mg/ Sodium (Chloride) 16 mls @ 480 mls/hr IVPUSH DAILY [facility] Last Admin: 01/28/18 09:16 Dose: 480 mls/hr Insulin Aspart (Novolog) 0 unit SUBCUT TIDAC [facility]; Protocol Last Admin: 01/21/18 12:11 Dose: Not Given Insulin Aspart (Novolog) 0 unit SUBCUT TIDAC [facility] Last Admin: 01/21/18 08:15 Dose: 6 units Insulin Aspart (Novolog) 0 unit SUBCUT TIDAC [facility] Last Admin: 01/21/18 12:12 Dose: Not Given Insulin Aspart (Novolog) 10 unit SUBCUT ONETIME ONE Stop: 01/22/18 06:31 Last Admin: 01/22/18 07:14 Dose: 10 units Insulin Aspart (Novolog) 0 unit SUBCUT TIDAC [facility] Last Admin: 01/26/18 17:21 Dose: Not Given Insulin Aspart (Novolog) 10 unit SUBCUT ONETIME ONE Stop: 01/24/18 20:01 Last Admin: 01/24/18 19:55 Dose: Not Given Insulin Glargine (Lantus Solostar) 42 units SUBCUT BEDTIME [facility] Last Admin: 01/20/18 21:35 Dose: 42 units Insulin Glargine (Lantus Solostar) 35 units SUBCUT BEDTIME [facility] Insulin Glargine (Lantus Solostar) 25 units SUBCUT BEDTIME [facility] Insulin Glargine (Lantus Solostar) 30 units SUBCUT BEDTIME [facility] Last Admin: 01/25/18 21:45 Dose: 15 units Insulin Human Regular (Novolin R) 10 unit IVPUSH ONETIME ONE; Protocol Stop: 01/22/18 06:26 Last Admin: 01/22/18 07:24 Dose: 10 units Lidocaine (Xylocaine-Mpf 2%) Confirm Administered Dose 10 ml .ROUTE .STK-MED ONE Stop: 01/25/18 11:47 Lidocaine HCl (Xylocaine 1%) Confirm Administered Dose 20 ml .ROUTE .STK-MED ONE Stop: 01/25/18 12:44 Midazolam HCl (Versed 1 Mg/Ml) Confirm Administered Dose 2 mg .ROUTE .STK-MED ONE Stop: 01/25/18 11:48 Nitroglycerin (Nitro-Bid 2%) Confirm Administered Dose 1 gm .ROUTE .STK-MED ONE Stop: 01/25/18 14:28 Ondansetron HCl (Zofran) Confirm Administered Dose 4 mg .ROUTE .STK-MED ONE Stop: 01/25/18 11:48 Propofol (Diprivan 20 Ml) Confirm Administered Dose 400 mg .ROUTE .STK-MED ONE Stop: 01/25/18 11:47 Sodium Polystyrene Sulfonate (Kayexalate) 15 gm PO ONETIME ONE Stop: 01/23/18 09:44 Last Admin: 01/23/18 10:42 Dose: 15 gm Sodium Polystyrene Sulfonate (Kayexalate) 45 gm PO NOW ONE Stop: 01/23/18 18:17 Last Admin: 01/23/18 19:27 Dose: 45 gm Sodium Polystyrene Sulfonate (Kayexalate) Confirm Administered Dose 30 gm .ROUTE .STK-MED ONE Stop: 01/23/18 19:37 Last Admin: 01/23/18 19:52 Dose: Not Given Spironolactone (Aldactone) 25 mg PO DAILY [facility] Vancomycin HCl (Pharmacy To Dose - Vancomycin) 1 dose .XX ASDIRECTED [facility] - Exam General: Alert, Oriented HEENT: Pupils Equal, Pupils Reactive Neck: Supple Physical Findings Comments:: General: Alert, Oriented, No Acute Distress Neck: Supple Lungs: Clear to Auscultation, Normal Respiratory Effort Cardiovascular: Regular Rate, Regular Rhythm GI/Abdominal Exam: Normal Bowel Sounds, Soft, Non-Tender, No Organomegaly, No Distention, No Abnormal Bruit, No Mass, Pelvis Stable Extremities: Normal Inspection, Normal Range of Motion, Pedal Edema (+1 to RLE, much improved since amputation of 5th digit of R foot) Wound/Incisions: Dressing Dry and Intact Neurological: No New Focal Deficit Psy/Mental Status: Alert, Normal Affect - Problem List Review Problem List Initiated/Reviewed/Updated: Yes - My Orders Last 24 Hours: My Active Orders 01/28/18 09:30 Linezolid [Zyvox] 600 mg Premix Bag 1 bag IV Q12H - Plan Plan:: #Diabetic Foot Infection, 5th digit of R foot s/p Amputation PO Day #3 #OM R Foot, on MRI #Leukocytosis, secondary to above #elevated ESR, secondary to above #History of MRSA -Dr. English, Podiatry on case -Patient currently on Daptomycin and Ertapenem -afebrile, BC NGTD -Tissue culture obtained during surgery reveals Pansensitive Staph Aureus and Pseudomonas resistant to Ertapenem but both sensitive to Linezolid -awaiting path from proximal bone obtained during surgery Plan: -DC Daptomycin and Ertrapenem -start Linezolid -continue to monitor ESR -f/u path report #Anemia, Microcytic, improving -likely secondary to ACD -low iron, low TIBC, normal ferritn, peripheral smear equivocal -low suspicion hemolysis, LDH borline elevated, elevated haptoglobin likely due to ongoing infection, awaiting direct sophie -patient on FeSo4 supplements at home Plan: -f/u Direct Sophie -continue to monitor #Subacute Kidney Injury -Cr 2.6 at admission, currently 1.6 -GFR 28 at admission, currently 50 -most recent renal function at least 3 months prior is from 10/08/17 - Cr 0.9, GFR>60 -estimating baseline Cr 1.4 based on chart Plan: -monitor #HTN -currently uncontrolled, may be due to pain from infection -home meds include Amlodipine 10 mg QD, Doxazosin 2 mg QD, Enalapril 40 mg QD & Spironolactone 25 mg QD -currently on Amlodipine and Doxazosin -continue to monitor #Dm type 1, uncontrolled -HbA1C 10.2% -currently on Lantus 30 units QD SSI medium dose -BG levels fluctuating -continue to monitor #Hyperphosphatemia, level 5.3 -serial phos levels #GERD and hx GI bleeding -No signs of acute bleed currently -No pharmacologic VTE agents due to history -Continue PPI VTE prophylaxis: SCDs and ambulation. <Lis Ku - Last Filed: 01/28/18 23:47> - Patient Data Vitals - Most Recent: Last Vital Signs Temp 98.3 F 01/28/18 20:00 Pulse 102 H 01/28/18 20:00 Resp 16 01/28/18 20:00 BP 155/102 H 01/28/18 20:00 Pulse Ox 96 01/28/18 20:00 I&O - Last 24 Hours: Intake & Output 01/28/18 01/28/18 01/29/18 14:59 22:59 06:59 Intake Total 316 1900 Output Total 1850 Balance 316 50 Lab Results Last 24 Hours: Laboratory Results - last 24 hr 01/27/18 01/28/18 01/28/18 Range/Units 21:48 05:05 05:05 WBC 15.60 H (4.0-11.0) K/uL RBC 4.48 L (4.50-5.90) M/uL Hgb 10.0 L (13.0-17.0) g/dL Hct 31.5 L (38.0-50.0) % MCV 70.3 L (80.0-98.0) fL MCH 22.3 L (27.0-32.0) pg MCHC 31.7 (31.0-37.0) g/dL RDW Std Deviation 49.0 (28.0-62.0) fl RDW Coeff of Dania 19 H (11.0-15.0) % Plt Count 602 H (150-400) K/uL MPV 8.80 (7.40-12.00) fL Add Manual Diff YES Neutrophils % (Manual) 71 (48.0-80.0) % Band Neutrophils % 1 % Lymphocytes % (Manual) 21 (16.0-40.0) % Monocytes % (Manual) 5 (0.0-15.0) % Eosinophils % (Manual) 1 (0.0-7.0) % Metamyelocytes % 1 % Nucleated RBC % 0.0 /100WBC Absolute Seg Neuts 11.1 H (1.4-5.7) Band Neutrophils # 0.2 Lymphocytes # (Manual) 3.3 H (0.6-2.4) Monocytes # (Manual) 0.8 (0.0-0.8) Eosinophils # (Manual) 0.2 (0.0-0.7) Absolute Metamyelocyte 0.2 Nucleated RBCs # 0 K/uL ESR (0-14) mm/hr Sodium 139 (136-148) mmol/L Potassium 4.6 (3.5-5.1) mmol/L Chloride 104 (98-107) mmol/L Carbon Dioxide 30.7 (21.0-32.0) mmol/L BUN 19 H (7.0-18.0) mg/dL Creatinine 1.6 H (0.8-1.3) mg/dL Est Cr Clr Drug Dosing 66.89 mL/min Estimated GFR (MDRD) 50.7 ml/min Glucose 187 H (74-106) mg/dL POC Glucose 194 H (60-110) mg/dL Calcium 9.3 (8.5-10.1) mg/dL Phosphorus 5.3 H (2.6-4.7) mg/dL 01/28/18 01/28/18 01/28/18 Range/Units 05:05 06:13 11:33 WBC (4.0-11.0) K/uL RBC (4.50-5.90) M/uL Hgb (13.0-17.0) g/dL Hct (38.0-50.0) % MCV (80.0-98.0) fL MCH (27.0-32.0) pg MCHC (31.0-37.0) g/dL RDW Std Deviation (28.0-62.0) fl RDW Coeff of Dania (11.0-15.0) % Plt Count (150-400) K/uL MPV (7.40-12.00) fL Add Manual Diff Neutrophils % (Manual) (48.0-80.0) % Band Neutrophils % % Lymphocytes % (Manual) (16.0-40.0) % Monocytes % (Manual) (0.0-15.0) % Eosinophils % (Manual) (0.0-7.0) % Metamyelocytes % % Nucleated RBC % /100WBC Absolute Seg Neuts (1.4-5.7) Band Neutrophils # Lymphocytes # (Manual) (0.6-2.4) Monocytes # (Manual) (0.0-0.8) Eosinophils # (Manual) (0.0-0.7) Absolute Metamyelocyte Nucleated RBCs # K/uL ESR 130 H (0-14) mm/hr Sodium (136-148) mmol/L Potassium (3.5-5.1) mmol/L Chloride (98-107) mmol/L Carbon Dioxide (21.0-32.0) mmol/L BUN (7.0-18.0) mg/dL Creatinine (0.8-1.3) mg/dL Est Cr Clr Drug Dosing mL/min Estimated GFR (MDRD) ml/min Glucose (74-106) mg/dL POC Glucose 174 H 120 H (60-110) mg/dL Calcium (8.5-10.1) mg/dL Phosphorus (2.6-4.7) mg/dL 01/28/18 01/28/18 01/28/18 Range/Units 16:17 20:37 22:59 WBC (4.0-11.0) K/uL RBC (4.50-5.90) M/uL Hgb (13.0-17.0) g/dL Hct (38.0-50.0) % MCV (80.0-98.0) fL MCH (27.0-32.0) pg MCHC (31.0-37.0) g/dL RDW Std Deviation (28.0-62.0) fl RDW Coeff of Dania (11.0-15.0) % Plt Count (150-400) K/uL MPV (7.40-12.00) fL Add Manual Diff Neutrophils % (Manual) (48.0-80.0) % Band Neutrophils % % Lymphocytes % (Manual) (16.0-40.0) % Monocytes % (Manual) (0.0-15.0) % Eosinophils % (Manual) (0.0-7.0) % Metamyelocytes % % Nucleated RBC % /100WBC Absolute Seg Neuts (1.4-5.7) Band Neutrophils # Lymphocytes # (Manual) (0.6-2.4) Monocytes # (Manual) (0.0-0.8) Eosinophils # (Manual) (0.0-0.7) Absolute Metamyelocyte Nucleated RBCs # K/uL ESR (0-14) mm/hr Sodium (136-148) mmol/L Potassium (3.5-5.1) mmol/L Chloride (98-107) mmol/L Carbon Dioxide (21.0-32.0) mmol/L BUN (7.0-18.0) mg/dL Creatinine (0.8-1.3) mg/dL Est Cr Clr Drug Dosing mL/min Estimated GFR (MDRD) ml/min Glucose (74-106) mg/dL POC Glucose 248 H 71 171 H (60-110) mg/dL Calcium (8.5-10.1) mg/dL Phosphorus (2.6-4.7) mg/dL Peter Results Last 24 Hours: Microbiology 01/25/18 14:07 Gram Stain - Final Foot, Right Wound Culture - Final Staphylococcus Aureus Pseudomonas Aeruginosa Anaerobic Culture - Final NO ANAEROBES ISOLATED Med Orders - Current: Current Medications Acetaminophen (Tylenol) 650 mg PO Q4H PRN PRN Reason: Pain (mild 1-3) Amlodipine Besylate (Norvasc) 10 mg PO DAILY [facility] Last Admin: 01/28/18 09:16 Dose: 10 mg Docusate Sodium (Colace) 100 mg PO BID [facility] Last Admin: 01/28/18 21:44 Dose: 100 mg Doxazosin Mesylate (Cardura) 2 mg PO DAILY [facility] Last Admin: 01/28/18 09:16 Dose: 2 mg Enalapril Maleate (Vasotec) 40 mg PO DAILY [facility] Last Admin: 01/28/18 09:16 Dose: 40 mg Ferrous Sulfate (Ferrous Sulfate) 325 mg PO TIDMEALS [facility] Last Admin: 01/28/18 17:51 Dose: 325 mg Hydralazine HCl (Apresoline) 25 mg PO TID [facility] Insulin Aspart (Novolog) 0 unit SUBCUT TIDAC [facility]; Protocol Last Admin: 01/28/18 17:55 Dose: 6 units Insulin Aspart (Novolog) 0 unit SUBCUT TIDAC [facility] Last Admin: 01/28/18 17:55 Dose: 3 units Insulin Glargine (Lantus Solostar) 15 units SUBCUT BEDTIME [facility] Last Admin: 01/28/18 23:18 Dose: 15 unit Levofloxacin (Levaquin) 500 mg PO Q24H [facility] Morphine Sulfate (Morphine) 3 mg IVPUSH Q2H PRN PRN Reason: Pain Last Admin: 01/26/18 21:07 Dose: 3 mg Rifampin 300 Mg 1 each PO BID [facility] Last Admin: 01/28/18 21:44 Dose: 1 each Ondansetron HCl (Zofran) 4 mg IVPUSH Q4H PRN PRN Reason: Pain Last Admin: 01/26/18 17:46 Dose: 4 mg Oxycodone HCl (Oxycodone) 5 mg PO Q4H PRN PRN Reason: Pain (moderate 4-6) Last Admin: 01/28/18 12:21 Dose: 5 mg Pantoprazole Sodium (Protonix) 40 mg PO ACBREAKFAST [facility] Last Admin: 01/28/18 06:53 Dose: 40 mg Sodium Chloride (Saline Flush) 2.5 ml FLUSH ASDIRECTED PRN PRN Reason: Keep Vein Open Torsemide (Demadex) 20 mg PO DAILY [facility] Last Admin: 01/28/18 09:16 Dose: 20 mg Discontinued Medications Amlodipine Besylate (Norvasc) 10 mg PO DAILY [facility] Bupivacaine HCl (Marcaine 0.5%) Confirm Administered Dose 30 ml .ROUTE .STK-MED ONE Stop: 01/25/18 12:41 Dextrose/Water (Dextrose 50% In Water) 50 ml IVPUSH ONETIME ONE Stop: 01/25/18 08:22 Last Admin: 01/25/18 08:30 Dose: 50 ml Dextrose/Water (Dextrose 50% In Water) 50 ml IVPUSH ONETIME ONE Stop: 01/25/18 11:57 Last Admin: 01/25/18 12:02 Dose: 50 ml Dextrose/Water (Dextrose 50% In Water) 50 ml IVPUSH ONETIME ONE Stop: 01/26/18 03:48 Last Admin: 01/26/18 03:57 Dose: 50 ml Docusate Sodium (Colace) 100 mg PO BID PRN PRN Reason: Constipation Fentanyl (Sublimaze) Confirm Administered Dose 100 mcg .ROUTE .STK-MED ONE Stop: 01/25/18 11:48 Fentanyl (Sublimaze) 50 mcg IVPUSH Q5M PRN PRN Reason: Pain (severe 7-10) Stop: 01/26/18 13:48 Hydralazine HCl (Apresoline) 10 mg IVPUSH ONETIME ONE Stop: 01/21/18 01:35 Last Admin: 01/21/18 01:52 Dose: 10 mg Sodium Chloride (Normal Saline) 1,000 mls @ 100 mls/hr IV ASDIRECTED [facility] Last Infusion: 01/21/18 08:40 Dose: 100 mls/hr Vancomycin HCl 1,250 mg/ (Sodium Chloride) 250 mls @ 166.667 mls/hr IV Q12H [facility] Last Admin: 01/22/18 08:09 Dose: Not Given Vancomycin HCl 1 gm/ Sodium (Chloride) 250 mls @ 166.667 mls/hr IV Q12H [facility] Last Admin: 01/26/18 21:00 Dose: 166.667 mls/hr Cefepime HCl 1 gm/ Premix 50 mls @ 100 mls/hr IV Q8H [facility] Last Admin: 01/25/18 08:19 Dose: 100 mls/hr Sodium Chloride (Normal Saline) 1,000 mls @ 75 mls/hr IV .BOLUS ONE Stop: 01/24/18 08:20 Last Admin: 01/23/18 19:28 Dose: 75 mls/hr Sodium Chloride (Normal Saline) Confirm Administered Dose 250 mls @ as directed .ROUTE .K-MED ONE Stop: 01/24/18 22:24 Last Admin: 01/25/18 00:01 Dose: Not Given Lactated Ringer's (Ringers, Lactated) 1,000 mls @ 125 mls/hr IV ASDIRECTED [facility] Last Admin: 01/25/18 04:23 Dose: 125 mls/hr Dextrose/Lactated Ringer's (Dextrose 5%-Lactated Ringers) 1,000 mls @ 75 mls/ hr IV ASDIRECTED [facility] Last Admin: 01/25/18 09:05 Dose: 75 mls/hr Dextrose/Lactated Ringer's (Dextrose 5%-Lactated Ringers) 1,000 mls @ 125 mls/ hr IV ASDIRECTED [facility] Last Admin: 01/25/18 12:07 Dose: 125 mls/hr Ertapenem 1 gm/ Sodium (Chloride) 100 mls @ 200 mls/hr IV Q24H [facility] Last Admin: 01/27/18 16:51 Dose: 200 mls/hr Dextrose/Water (Dextrose 5% In Water) 1,000 mls @ 125 mls/hr IV ASDIRECTED [facility] Last Admin: 01/27/18 03:05 Dose: 125 mls/hr Daptomycin 800 mg/ Sodium (Chloride) 16 mls @ 480 mls/hr IVPUSH DAILY [facility] Last Admin: 01/28/18 09:16 Dose: 480 mls/hr Linezolid 600 mg/ Premix 300 mls @ 300 mls/hr IV Q12H [facility] Last Admin: 01/28/18 09:42 Dose: 300 mls/hr Levofloxacin/Dextrose 750 mg/ (Premix) 150 mls @ 100 mls/hr IV ONETIME ONE Stop: 01/28/18 16:33 Last Admin: 01/28/18 15:53 Dose: 100 mls/hr Insulin Aspart (Novolog) 0 unit SUBCUT TIDAC [facility]; Protocol Last Admin: 01/21/18 12:11 Dose: Not Given Insulin Aspart (Novolog) 0 unit SUBCUT TIDAC [facility] Last Admin: 01/21/18 08:15 Dose: 6 units Insulin Aspart (Novolog) 0 unit SUBCUT TIDAC [facility] Last Admin: 01/21/18 12:12 Dose: Not Given Insulin Aspart (Novolog) 10 unit SUBCUT ONETIME ONE Stop: 01/22/18 06:31 Last Admin: 01/22/18 07:14 Dose: 10 units Insulin Aspart (Novolog) 0 unit SUBCUT [facility] Last Admin: 01/26/18 17:21 Dose: Not Given Insulin Aspart (Novolog) 10 unit SUBCUT ONETIME ONE Stop: 01/24/18 20:01 Last Admin: 01/24/18 19:55 Dose: Not Given Insulin Glargine (Lantus Solostar) 42 units SUBCUT BEDTIME [facility] Last Admin: 01/20/18 21:35 Dose: 42 units Insulin Glargine (Lantus Solostar) 35 units SUBCUT BEDTIME [facility] Insulin Glargine (Lantus Solostar) 25 units SUBCUT BEDTIME [facility] Insulin Glargine (Lantus Solostar) 30 units SUBCUT BEDTIME [facility] Last Admin: 01/25/18 21:45 Dose: 15 units Insulin Human Regular (Novolin R) 10 unit IVPUSH ONETIME ONE; Protocol Stop: 01/22/18 06:26 Last Admin: 01/22/18 07:24 Dose: 10 units Levofloxacin (Levaquin) 500 mg PO Q24H [facility] Last Admin: 01/28/18 18:49 Dose: Not Given Lidocaine (Xylocaine-Mpf 2%) Confirm Administered Dose 10 ml .ROUTE .STK-MED ONE Stop: 01/25/18 11:47 Lidocaine HCl (Xylocaine 1%) Confirm Administered Dose 20 ml .ROUTE .STK-MED ONE Stop: 01/25/18 12:44 Midazolam HCl (Versed 1 Mg/Ml) Confirm Administered Dose 2 mg .ROUTE .STK-MED ONE Stop: 01/25/18 11:48 Nitroglycerin (Nitro-Bid 2%) Confirm Administered Dose 1 gm .ROUTE .STK-MED ONE Stop: 01/25/18 14:28 Ondansetron HCl (Zofran) Confirm Administered Dose 4 mg .ROUTE .STK-MED ONE Stop: 01/25/18 11:48 Propofol (Diprivan 20 Ml) Confirm Administered Dose 400 mg .ROUTE .STK-MED ONE Stop: 01/25/18 11:47 Sodium Polystyrene Sulfonate (Kayexalate) 15 gm PO ONETIME ONE Stop: 01/23/18 09:44 Last Admin: 01/23/18 10:42 Dose: 15 gm Sodium Polystyrene Sulfonate (Kayexalate) 45 gm PO NOW ONE Stop: 01/23/18 18:17 Last Admin: 01/23/18 19:27 Dose: 45 gm Sodium Polystyrene Sulfonate (Kayexalate) Confirm Administered Dose 30 gm .ROUTE .STK-MED ONE Stop: 01/23/18 19:37 Last Admin: 01/23/18 19:52 Dose: Not Given Spironolactone (Aldactone) 25 mg PO DAILY [facility] Vancomycin HCl (Pharmacy To Dose - Vancomycin) 1 dose .XX ASDIRECTED [facility] - My Orders Last 24 Hours: My Active Orders 01/28/18 21:00 Non-Formulary Medication [NF Drug] 1 each PO BID 01/29/18 06:00 hydrALAZINE [Apresoline] 25 mg PO TID 01/29/18 09:00 Levofloxacin [Levaquin] 500 mg PO Q24H - Plan Plan:: Patient seen and examined and discussed with 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 He has osteomyelitis.of the metatarsal bone right foot , at the amputation site .He is s/p right fifth toe amputation of the right foot Wound culture grew scant staphylococcus aureus that is sensitive to Levaquin , abundant pseudomonas that is also sensitive to levaquin. Infectios disease doctor, Shongadonis recommended patient to be started on 6 weeks treatment with Levaquin 500 mg po daily and rifampin 600 mg po daily for 6 weeks. Patient to f/up with Infectious Disease and with Podiatry Continue treatment of patient with fluids and antibiotic. Daily dressing change right foot: dab area with saline soaked gauze, then dry gauze. Apply piece of xeroform over sutures and overlay with 4x4 gauze secured with kerlix roll. Secure dressings with matty bandage. Dressing by nursing changed today. Right foot amputation site under dressings wa inspected by Posiatrist and verified minimal serous drainage and intact sutures. D/c planning tomorrow, f/up ID and f/up Podiatry
[2018-01-28] MEDS ORDERED: Levofloxacin/Dextrose 5%-Water 750 MG in Premix Bag 1 BAG IV ONE (15:04)
[2018-01-28] MEDS ORDERED: Levofloxacin 500 MG Tab PO SCH (18:45)
--- NOTE | 2018-01-28 19:07 | PCM.CONSN ---
- General Info Date of Service: 01/28/18 Admission Dx/Problem (Free Text): Admission Diagnosis/Problem Admission Diagnosis/Problem Leukocytosis, post op day 3 right fifth toe amputation Subjective Update: Patient says he is doing OK. He states he is feeling about the same, no complaint of pain. He is looking forward to getting discharged. - Review of Systems General: Reports: No Symptoms HEENT: Reports: No Symptoms Pulmonary: Reports: No Symptoms Cardiovascular: Reports: No Symptoms Gastrointestinal: Reports: No Symptoms Genitourinary: Reports: No Symptoms Musculoskeletal: Reports: No Symptoms Skin: Reports: No Symptoms Neurological: Reports: No Symptoms Psychiatric: Reports: No Symptoms - Patient Data Vitals - Most Recent: Last Vital Signs Temp 36.6 C 01/28/18 16:00 Pulse 104 H 01/28/18 16:00 Resp 16 01/28/18 16:00 BP 148/99 H 01/28/18 16:00 Pulse Ox 99 01/28/18 16:00 Weight - Most Recent: 83.053 kg I&O - Last 24 Hours: Intake & Output 01/28/18 01/28/18 01/28/18 06:59 14:59 22:59 Intake Total 0303 437 6207 Output Total 1800 1850 Balance -520 316 50 Lab Results Last 24 Hours: Laboratory Results - last 24 hr 01/27/18 01/28/18 01/28/18 Range/Units 21:48 05:05 05:05 WBC 15.60 H (4.0-11.0) K/uL RBC 4.48 L (4.50-5.90) M/uL Hgb 10.0 L (13.0-17.0) g/dL Hct 31.5 L (38.0-50.0) % MCV 70.3 L (80.0-98.0) fL MCH 22.3 L (27.0-32.0) pg MCHC 31.7 (31.0-37.0) g/dL RDW Std Deviation 49.0 (28.0-62.0) fl RDW Coeff of Dania 19 H (11.0-15.0) % Plt Count 602 H (150-400) K/uL MPV 8.80 (7.40-12.00) fL Add Manual Diff YES Neutrophils % (Manual) 71 (48.0-80.0) % Band Neutrophils % 1 % Lymphocytes % (Manual) 21 (16.0-40.0) % Monocytes % (Manual) 5 (0.0-15.0) % Eosinophils % (Manual) 1 (0.0-7.0) % Metamyelocytes % 1 % Nucleated RBC % 0.0 /100WBC Absolute Seg Neuts 11.1 H (1.4-5.7) Band Neutrophils # 0.2 Lymphocytes # (Manual) 3.3 H (0.6-2.4) Monocytes # (Manual) 0.8 (0.0-0.8) Eosinophils # (Manual) 0.2 (0.0-0.7) Absolute Metamyelocyte 0.2 Nucleated RBCs # 0 K/uL Sodium 139 (136-148) mmol/L Potassium 4.6 (3.5-5.1) mmol/L Chloride 104 (98-107) mmol/L Carbon Dioxide 30.7 (21.0-32.0) mmol/L BUN 19 H (7.0-18.0) mg/dL Creatinine 1.6 H (0.8-1.3) mg/dL Est Cr Clr Drug Dosing 66.89 mL/min Estimated GFR (MDRD) 50.7 ml/min Glucose 187 H (74-106) mg/dL POC Glucose 194 H (60-110) mg/dL Calcium 9.3 (8.5-10.1) mg/dL Phosphorus 5.3 H (2.6-4.7) mg/dL 01/28/18 01/28/18 01/28/18 Range/Units 06:13 11:33 16:17 WBC (4.0-11.0) K/uL RBC (4.50-5.90) M/uL Hgb (13.0-17.0) g/dL Hct (38.0-50.0) % MCV (80.0-98.0) fL MCH (27.0-32.0) pg MCHC (31.0-37.0) g/dL RDW Std Deviation (28.0-62.0) fl RDW Coeff of Dania (11.0-15.0) % Plt Count (150-400) K/uL MPV (7.40-12.00) fL Add Manual Diff Neutrophils % (Manual) (48.0-80.0) % Band Neutrophils % % Lymphocytes % (Manual) (16.0-40.0) % Monocytes % (Manual) (0.0-15.0) % Eosinophils % (Manual) (0.0-7.0) % Metamyelocytes % % Nucleated RBC % /100WBC Absolute Seg Neuts (1.4-5.7) Band Neutrophils # Lymphocytes # (Manual) (0.6-2.4) Monocytes # (Manual) (0.0-0.8) Eosinophils # (Manual) (0.0-0.7) Absolute Metamyelocyte Nucleated RBCs # K/uL Sodium (136-148) mmol/L Potassium (3.5-5.1) mmol/L Chloride (98-107) mmol/L Carbon Dioxide (21.0-32.0) mmol/L BUN (7.0-18.0) mg/dL Creatinine (0.8-1.3) mg/dL Est Cr Clr Drug Dosing mL/min Estimated GFR (MDRD) ml/min Glucose (74-106) mg/dL POC Glucose 174 H 120 H 248 H (60-110) mg/dL Calcium (8.5-10.1) mg/dL Phosphorus (2.6-4.7) mg/dL Peter Results Last 24 Hours: Microbiology 01/25/18 14:07 Gram Stain - Final Foot, Right Wound Culture - Final Staphylococcus Aureus Pseudomonas Aeruginosa Anaerobic Culture - Final NO ANAEROBES ISOLATED Med Orders - Current: Current Medications Acetaminophen (Tylenol) 650 mg PO Q4H PRN PRN Reason: Pain (mild 1-3) Amlodipine Besylate (Norvasc) 10 mg PO DAILY [facility] Last Admin: 01/28/18 09:16 Dose: 10 mg Docusate Sodium (Colace) 100 mg PO BID [facility] Last Admin: 01/28/18 09:16 Dose: 100 mg Doxazosin Mesylate (Cardura) 2 mg PO DAILY [facility] Last Admin: 01/28/18 09:16 Dose: 2 mg Enalapril Maleate (Vasotec) 40 mg PO DAILY [facility] Last Admin: 01/28/18 09:16 Dose: 40 mg Ferrous Sulfate (Ferrous Sulfate) 325 mg PO TIDMEALS [facility] Last Admin: 01/28/18 17:51 Dose: 325 mg Rifampin 300 mg/ Sodium (Chloride) 100 mls @ 100 mls/hr IV Q8H [facility] Stop: 01/29/18 05:00 Insulin Aspart (Novolog) 0 unit SUBCUT TIDAC [facility]; Protocol Last Admin: 01/28/18 17:55 Dose: 6 units Insulin Aspart (Novolog) 0 unit SUBCUT TIDAC [facility] Last Admin: 01/28/18 17:55 Dose: 3 units Insulin Glargine (Lantus Solostar) 15 units SUBCUT BEDTIME [facility] Last Admin: 01/27/18 22:12 Dose: 15 unit Levofloxacin (Levaquin) 500 mg PO Q24H [facility] Morphine Sulfate (Morphine) 3 mg IVPUSH Q2H PRN PRN Reason: Pain Last Admin: 01/26/18 21:07 Dose: 3 mg Ondansetron HCl (Zofran) 4 mg IVPUSH Q4H PRN PRN Reason: Pain Last Admin: 01/26/18 17:46 Dose: 4 mg Oxycodone HCl (Oxycodone) 5 mg PO Q4H PRN PRN Reason: Pain (moderate 4-6) Last Admin: 01/28/18 12:21 Dose: 5 mg Pantoprazole Sodium (Protonix) 40 mg PO ACBREAKFAST [facility] Last Admin: 01/28/18 06:53 Dose: 40 mg Sodium Chloride (Saline Flush) 2.5 ml FLUSH ASDIRECTED PRN PRN Reason: Keep Vein Open Torsemide (Demadex) 20 mg PO DAILY [facility] Last Admin: 01/28/18 09:16 Dose: 20 mg Discontinued Medications Amlodipine Besylate (Norvasc) 10 mg PO DAILY [facility] Bupivacaine HCl (Marcaine 0.5%) Confirm Administered Dose 30 ml .ROUTE .STK-MED ONE Stop: 01/25/18 12:41 Dextrose/Water (Dextrose 50% In Water) 50 ml IVPUSH ONETIME ONE Stop: 01/25/18 08:22 Last Admin: 01/25/18 08:30 Dose: 50 ml Dextrose/Water (Dextrose 50% In Water) 50 ml IVPUSH ONETIME ONE Stop: 01/25/18 11:57 Last Admin: 01/25/18 12:02 Dose: 50 ml Dextrose/Water (Dextrose 50% In Water) 50 ml IVPUSH ONETIME ONE Stop: 01/26/18 03:48 Last Admin: 01/26/18 03:57 Dose: 50 ml Docusate Sodium (Colace) 100 mg PO BID PRN PRN Reason: Constipation Fentanyl (Sublimaze) Confirm Administered Dose 100 mcg .ROUTE .K-MED ONE Stop: 01/25/18 11:48 Fentanyl (Sublimaze) 50 mcg IVPUSH Q5M PRN PRN Reason: Pain (severe 7-10) Stop: 01/26/18 13:48 Hydralazine HCl (Apresoline) 10 mg IVPUSH ONETIME ONE Stop: 01/21/18 01:35 Last Admin: 01/21/18 01:52 Dose: 10 mg Sodium Chloride (Normal Saline) 1,000 mls @ 100 mls/hr IV ASDIRECTED [facility] Last Infusion: 01/21/18 08:40 Dose: 100 mls/hr Vancomycin HCl 1,250 mg/ (Sodium Chloride) 250 mls @ 166.667 mls/hr IV Q12H [facility] Last Admin: 01/22/18 08:09 Dose: Not Given Vancomycin HCl 1 gm/ Sodium (Chloride) 250 mls @ 166.667 mls/hr IV Q12H [facility] Last Admin: 01/26/18 21:00 Dose: 166.667 mls/hr Cefepime HCl 1 gm/ Premix 50 mls @ 100 mls/hr IV Q8H [facility] Last Admin: 01/25/18 08:19 Dose: 100 mls/hr Sodium Chloride (Normal Saline) 1,000 mls @ 75 mls/hr IV .BOLUS ONE Stop: 01/24/18 08:20 Last Admin: 01/23/18 19:28 Dose: 75 mls/hr Sodium Chloride (Normal Saline) Confirm Administered Dose 250 mls @ as directed .ROUTE .STK-MED ONE Stop: 01/24/18 22:24 Last Admin: 01/25/18 00:01 Dose: Not Given Lactated Ringer's (Ringers, Lactated) 1,000 mls @ 125 mls/hr IV ASDIRECTED [facility] Last Admin: 01/25/18 04:23 Dose: 125 mls/hr Dextrose/Lactated Ringer's (Dextrose 5%-Lactated Ringers) 1,000 mls @ 75 mls/ hr IV ASDIRECTED [facility] Last Admin: 01/25/18 09:05 Dose: 75 mls/hr Dextrose/Lactated Ringer's (Dextrose 5%-Lactated Ringers) 1,000 mls @ 125 mls/ hr IV ASDIRECTED [facility] Last Admin: 01/25/18 12:07 Dose: 125 mls/hr Ertapenem 1 gm/ Sodium (Chloride) 100 mls @ 200 mls/hr IV Q24H [facility] Last Admin: 01/27/18 16:51 Dose: 200 mls/hr Dextrose/Water (Dextrose 5% In Water) 1,000 mls @ 125 mls/hr IV ASDIRECTED [facility] Last Admin: 01/27/18 03:05 Dose: 125 mls/hr Daptomycin 800 mg/ Sodium (Chloride) 16 mls @ 480 mls/hr IVPUSH DAILY [facility] Last Admin: 01/28/18 09:16 Dose: 480 mls/hr Linezolid 600 mg/ Premix 300 mls @ 300 mls/hr IV Q12H [facility] Last Admin: 01/28/18 09:42 Dose: 300 mls/hr Levofloxacin/Dextrose 750 mg/ (Premix) 150 mls @ 100 mls/hr IV ONETIME ONE Stop: 01/28/18 16:33 Last Admin: 01/28/18 15:53 Dose: 100 mls/hr [facility] Last Admin: 01/21/18 12:11 Dose: Not Given [facility]ulin [facility] Last Admin: 01/21/18 08:15 Dose: 6 units [facility]ulin [facility] ([facility]) [facility] Last Admin: 01/21/18 12:12 Dose: Not Given Insulin Aspart (Novolog) 10 unit SUBCUT ONETIME ONE Stop: 01/22/18 06:31 Last Admin: 01/22/18 07:14 Dose: 10 units [facility]ulin [facility] ([facility] Last Admin: 01/26/18 17:21 Dose: Not Given Insulin Aspart (Novolog) 10 unit SUBCUT ONETIME ONE Stop: 01/24/18 20:01 Last Admin: 01/24/18 19:55 Dose: Not Given Insulin Glargine (Lantus Solostar) 42 units SUBCUT BEDTIME [facility] Last Admin: 01/20/18 21:35 Dose: 42 units Insulin Glargine (Lantus Solostar) 35 units SUBCUT BEDTIME [facility] Insulin Glargine (Lantus Solostar) 25 units SUBCUT BEDTIME [facility] Insulin Glargine (Lantus Solostar) 30 units SUBCUT BEDTIME [facility] Last Admin: 01/25/18 21:45 Dose: 15 units Insulin Human Regular (Novolin R) 10 unit IVPUSH ONETIME ONE; Protocol Stop: 01/22/18 06:26 Last Admin: 01/22/18 07:24 Dose: 10 units Levofloxacin (Levaquin) 500 mg PO Q24H [facility] Last Admin: 01/28/18 18:49 Dose: Not Given Lidocaine (Xylocaine-Mpf 2%) Confirm Administered Dose 10 ml .ROUTE .STK-MED ONE Stop: 01/25/18 11:47 Lidocaine HCl (Xylocaine 1%) Confirm Administered Dose 20 ml .ROUTE .STK-MED ONE Stop: 01/25/18 12:44 Midazolam HCl (Versed 1 Mg/Ml) Confirm Administered Dose 2 mg .ROUTE .STK-MED ONE Stop: 01/25/18 11:48 Nitroglycerin (Nitro-Bid 2%) Confirm Administered Dose 1 gm .ROUTE .STK-MED ONE Stop: 01/25/18 14:28 Ondansetron HCl (Zofran) Confirm Administered Dose 4 mg .ROUTE .STK-MED ONE Stop: 01/25/18 11:48 Propofol (Diprivan 20 Ml) Confirm Administered Dose 400 mg .ROUTE .STK-MED ONE Stop: 01/25/18 11:47 Sodium Polystyrene Sulfonate (Kayexalate) 15 gm PO ONETIME ONE Stop: 01/23/18 09:44 Last Admin: 01/23/18 10:42 Dose: 15 gm Sodium Polystyrene Sulfonate (Kayexalate) 45 gm PO NOW ONE Stop: 01/23/18 18:17 Last Admin: 01/23/18 19:27 Dose: 45 gm Sodium Polystyrene Sulfonate (Kayexalate) Confirm Administered Dose 30 gm .ROUTE .STK-MED ONE Stop: 01/23/18 19:37 Last Admin: 01/23/18 19:52 Dose: Not Given Spironolactone (Aldactone) 25 mg PO DAILY [facility] Vancomycin HCl (Pharmacy To Dose - Vancomycin) 1 dose .XX ASDIRECTED [facility] - Exam Peripheral Pulses: 1+: Posterior Tibial (R), Dorsalis Pedis (R) Skin: Warm Wound/Incisions: Drainage (minimal serous drainge - dryer than yesterday) Physical Findings Comments:: right foot fifth toe amputation site: no significant changes, no malodor, sutures are intact and drainage is subsiding but still present Consult PN Assessment/Plan POD#: 3 Procedures: Procedures AGENT NOS ASSAY W/OPTIC (11/07/15) ASSAY OF AMMONIA (08/04/17) ASSAY OF AMYLASE (08/04/17) ASSAY OF FERRITIN (09/25/17) ASSAY OF FREE THYROXINE (01/19/18) ASSAY OF IRON (12/16/17) ASSAY OF LACTIC ACID (08/04/17) ASSAY OF LIPASE (08/04/17) ASSAY OF MAGNESIUM (08/19/16) ASSAY OF NATRIURETIC PEPTIDE (08/04/17) ASSAY OF PHOSPHORUS (11/11/16) ASSAY OF PROTEIN URINE (01/06/18) ASSAY OF TROPONIN QUANT (08/04/17) ASSAY OF URINE CREATININE (01/06/18) ASSAY THYROID STIM HORMONE (01/19/18) BLOOD CULTURE FOR BACTERIA (07/22/17) BLOOD GASES ANY COMBINATION (08/04/17) C-REACTIVE PROTEIN (11/07/15) CHEST X-RAY 1 VIEW FRONTAL (08/04/17) CHEST X-RAY 2VW FRONTAL&LATL (08/04/17) COMPLETE CBC AUTOMATED (05/06/14) COMPLETE CBC W/AUTO DIFF WBC (01/19/18) COMPREHEN METABOLIC PANEL (01/19/18) CREATININE CLEARANCE TEST (04/10/16) CT ABD & PELVIS W/O CONTRAST (11/07/15) DRUG TEST PRSMV DIR OPT OBS (08/04/17) EGD BIOPSY SINGLE/MULTIPLE (01/29/17) ELECTROCARDIOGRAM TRACING (01/19/18) EMERGENCY DEPT VISIT (09/25/17) EMERGENCY DEPT VISIT (08/04/17) EMERGENCY DEPT VISIT (07/20/17) EMERGENCY DEPT VISIT (07/15/17) EMERGENCY DEPT VISIT (04/17/17) EMERGENCY DEPT VISIT (12/14/16) EMERGENCY DEPT VISIT (11/07/15) EMERGENCY DEPT VISIT (11/07/15) EMERGENCY DEPT VISIT (03/28/15) EMERGENCY DEPT VISIT (03/12/15) EMERGENCY DEPT VISIT (09/28/14) EMERGENCY DEPT VISIT (06/19/14) EMERGENCY DEPT VISIT (04/03/14) EXTREMITY STUDY (07/20/17) FIBRIN DEGRADATION QUANT (07/22/17) GASTRIC EMPTYING IMAG STUDY (02/03/17) GLUCOSE BLOOD TEST (09/25/17) GLYCOSYLATED HEMOGLOBIN TEST (01/19/18) HYDRATE IV INFUSION ADD-ON (08/04/17) IMMUNIZATION ADMIN (07/20/17) INFLUENZA ASSAY W/OPTIC (08/04/17) IRON BINDING TEST (09/25/17) LIPID PANEL (01/19/18) LUNG VENTILAT&PERFUS IMAGING (07/22/17) METABOLIC PANEL TOTAL CA (10/07/17) OCCULT BLD FECES 1-3 TESTS (11/07/15) PROTHROMBIN TIME (01/19/18) RENAL FUNCTION PANEL (01/06/18) ROUTINE VENIPUNCTURE (01/19/18) SPECIAL STAINS GROUP 1 (10/17/14) STOOL CULTR AEROBIC BACT EA (11/07/15) TDAP VACCINE 7 YRS/> IM (07/20/17) TEST FOR ACETONE/KETONES (07/20/17) THER/PROPH/DIAG INJ IV PUSH (08/04/17) THER/PROPH/DIAG INJ SC/IM (08/04/17) THER/PROPH/DIAG IV INF ADDON (07/22/17) THER/PROPH/DIAG IV INF INIT (08/04/17) THROMBOPLASTIN TIME PARTIAL (01/19/18) TISSUE EXAM BY PATHOLOGIST (10/17/14) TTE W/DOPPLER COMPLETE (07/22/17) TX GASTRO INTUB W/ASP (08/04/17) TX/PRO/DX INJ NEW DRUG ADDON (08/04/17) TX/PRO/DX INJ SAME DRUG COMMERCIAL ACCOUNTANT (08/04/17) UR ALBUMIN SEMIQUANTITATIVE (04/08/16) URINALYSIS AUTO W/O SCOPE (12/14/16) URINALYSIS AUTO W/SCOPE (01/19/18) US EXAM ABDO BACK WALL DIALLO (04/17/16) WITHDRAWAL OF ARTERIAL BLOOD (08/04/17) X-RAY EXAM CHEST 2 VIEWS (01/19/18) X-RAY EXAM OF FOOT (07/20/17) (1) Gangrene of toe SNOMED Code(s): 463995721 Code(s): I96 - GANGRENE, NOT ELSEWHERE CLASSIFIED Current Visit: Yes Problem List Initiated/Reviewed/Updated: Yes Plan: 1. Continue treatment of patient with fluids and antibiotic. 2. POD #3 after right fifth toe amputation. I spoke with Dr. Jeffery - pathology , regarding the bone biopsy of the right fifth metatarsal head - the impression is that there is early evidence of osteomyelitis but the bone is viable. care home antibiotics are indicated. Dr. Ku and I had a telephone consult with ID, Dr. Alexander, in [place] and recommendation was patient be placed on six weeks of oral antibiotics: levaquin and rifampin. 3. Daily dressing change right foot: dab area with saline soaked gauze, then dry gauze. Apply piece of xeroform over sutures and overlay with 4x4 gauze secured with kerlix roll. Secure dressings with matty bandage. Dressing by nursing changed today. I inspected right foot amputation site under dressings and verified minimal serous drainage and intact sutures. 4. I again discussed patient care with Dr. Ku. Patient is to be discharged tomorrow. 5. I discussed all findings with patient and agreed to see patient on outpatient basis. Patient has my cell phone should he need it and is clear on daily wound care protocol.
[2018-01-28] MEDS: RIFAMPIN 300 MG PO SCH (21:44)
[2018-01-28] MEDS: Insulin Glargine,Human Rec. Analog 100 Units/ML 3 ML Pen SUBCUT SCH (23:18)
[2018-01-29] MEDS: Morphine 4 MG/ML Syringe IVPUSH PRN (04:30)
[2018-01-29] MEDS: hydrALAZINE 25 MG Tab PO SCH ×2 (05:25→13:21)
[2018-01-29] MEDS: Pantoprazole 40 MG Tab.CR PO SCH (08:18)
[2018-01-29] MEDS ORDERED: Levofloxacin 500 MG Tab PO SCH (09:00)
[2018-01-29] MEDS: RIFAMPIN 300 MG PO SCH (09:00)
[2018-01-29] MEDS: Docusate Sodium 100 MG Cap PO SCH (09:02)
[2018-01-29] MEDS: amLODIPine 5 MG Tab PO SCH (09:03)
[2018-01-29] MEDS: Ferrous Sulfate 325 MG Tab PO SCH ×2 (09:03→13:21)
[2018-01-29] MEDS: Doxazosin 2 MG Tab PO SCH (09:03)
[2018-01-29] MEDS: Torsemide 20 MG Tab PO SCH (09:04)
[2018-01-29] MEDS: Insulin Aspart 100 Units/ML 3 ML Pen SUBCUT SCH ×4 (10:13→13:19)
[2018-01-29 13:22] VITALS: BP 170/103
--- NOTE | 2018-01-29 15:39 | PCM.DCSUM1 ---
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 SNOMED Code(s): 495084551 ICD Code: Z89.421 - ACQUIRED ABSENCE OF OTHER RIGHT TOE(S) Status: Acute Current Visit: Yes - Patient Summary/Data Operative Procedure(s) Performed: amputation of fifth toe right foot Consults: Consultations 01/20/18 16:37 Consult to Physician [CONS] Routine 01/21/18 11:11 Consult to Physician [CONS] Routine 01/22/18 09:33 Consult to Diabetic Nurse Specialist [CONS] Routine 01/25/18 15:03 PT Evaluation and Treatment [CONS] Routine - Patient Instructions Diet: Usual Diet as Tolerated Activity: As Tolerated Driving: May Drive Today Showering/Bathing: May Shower Notify Provider of: Fever - Discharge Plan Prescriptions/Med Rec: Acetaminophen [Tylenol] 650 mg PO Q4H PRN 30 Days #100 tab PRN Reason: Pain hydrALAZINE [Apresoline] 25 mg PO TID 30 Days #90 tablet Insulin Glarg,Human.Rec.Analog [Lantus Solostar] 15 units SUBCUT BEDTIME 30 Days #3 pen Levofloxacin [Levaquin] 500 mg PO Q24H #42 tablet oxyCODONE 5 mg PO Q6H PRN 10 Days #20 tab PRN Reason: moderate to severe pain Home Medications: Home Meds Omeprazole Magnesium [Prilosec Otc] 40 mg PO DAILY 07/15/17 [History] Doxazosin [Cardura] 2 mg PO DAILY 09/25/17 [History] Enalapril [Vasotec] 40 mg PO DAILY 09/25/17 [History] Torsemide 20 mg PO DAILY 09/25/17 [History] amLODIPine Besylate [Amlodipine Besylate] 10 mg PO DAILY 09/25/17 [History] Ferrous Sulfate 324 mg PO DAILY 01/20/18 [History] Acetaminophen [Tylenol] 650 mg PO Q4H PRN 30 Days #100 tab 01/29/18 [Rx] Insulin Glarg,Human.Rec.Analog [Lantus Solostar] 15 units SUBCUT BEDTIME 30 Days #3 pen 01/29/18 [Rx] Levofloxacin [Levaquin] 500 mg PO Q24H #42 tablet 01/29/18 [Rx] hydrALAZINE [Apresoline] 25 mg PO TID 30 Days #90 tablet 01/29/18 [Rx] oxyCODONE 5 mg PO Q6H PRN 10 Days #20 tab 01/29/18 [Rx] Patient Handouts: Hydralazine tablets, Oxycodone tablets or capsules, Acetaminophen tablets or caplets, Toe Amputation, Care After, Levofloxacin tablets, Insulin Glargine injection Referrals: Autumn Alexander MD [Ordering Only Provider] - 02/18/18 3:00 pm Fitz Infante MD [Primary Care Provider] - 02/01/18 3:00 pm (1 week) Andres English DPM [Physician] - 03/11/18 10:00 am - Patient Data Vitals - Most Recent: Last Vital Signs Temp 98.2 F 01/29/18 08:00 Pulse 105 H 01/29/18 08:00 Resp 18 01/29/18 08:00 BP 170/103 H 01/29/18 13:21 Pulse Ox 96 01/29/18 08:00 Weight - Most Recent: 183 lb 1.6 oz I&O - Last 24 hours: Intake & Output 01/29/18 01/29/18 01/29/18 06:59 14:59 22:59 Intake Total 360 Output Total 1000 Balance -640 Lab Results - Last 24 hrs: Laboratory Results - last 24 hr 01/28/18 01/28/18 01/28/18 Range/Units 05:05 16:17 20:37 ESR 130 H (0-14) mm/hr POC Glucose 248 H 71 (60-110) mg/dL 01/28/18 01/29/18 01/29/18 Range/Units 22:59 05:27 08:58 ESR (0-14) mm/hr POC Glucose 171 H 193 H 175 H (60-110) mg/dL Med Orders - Current: Current Medications Acetaminophen (Tylenol) 650 mg PO Q4H PRN PRN Reason: Pain (mild 1-3) Amlodipine Besylate (Norvasc) 10 mg PO DAILY [facility] Last Admin: 01/29/18 09:03 Dose: 10 mg Docusate Sodium (Colace) 100 mg PO BID [facility] Last Admin: 01/29/18 09:02 Dose: 100 mg Doxazosin Mesylate (Cardura) 2 mg PO DAILY [facility] Last Admin: 01/29/18 09:03 Dose: 2 mg Enalapril Maleate (Vasotec) 40 mg PO DAILY [facility] Last Admin: 01/29/18 09:00 Dose: 40 mg Ferrous Sulfate (Ferrous Sulfate) 325 mg PO TIDMEALS [facility] Last Admin: 01/29/18 13:21 Dose: 325 mg Hydralazine HCl (Apresoline) 25 mg PO TID [facility] Last Admin: 01/29/18 13:21 Dose: 25 mg Insulin Aspart (Novolog) 0 unit SUBCUT TIDAC [facility]; Protocol Last Admin: 01/29/18 13:16 Dose: 6 units Insulin Aspart (Novolog) 0 unit SUBCUT TIDAC [facility] Last Admin: 01/29/18 13:19 Dose: 3 units Insulin Glargine (Lantus Solostar) 15 units SUBCUT BEDTIME [facility] Last Admin: 01/28/18 23:18 Dose: 15 unit Levofloxacin (Levaquin) 500 mg PO Q24H [facility] Last Admin: 01/29/18 09:02 Dose: 500 mg Morphine Sulfate (Morphine) 3 mg IVPUSH Q2H PRN PRN Reason: Pain Last Admin: 01/29/18 04:30 Dose: 3 mg Rifampin 300 Mg 1 each PO BID [facility] Last Admin: 01/29/18 09:00 Dose: 1 each Ondansetron HCl (Zofran) 4 mg IVPUSH Q4H PRN PRN Reason: Pain Last Admin: 01/26/18 17:46 Dose: 4 mg Oxycodone HCl (Oxycodone) 5 mg PO Q4H PRN PRN Reason: Pain (moderate 4-6) Last Admin: 01/28/18 12:21 Dose: 5 mg Pantoprazole Sodium (Protonix) 40 mg PO ACBREAKFAST [facility] Last Admin: 01/29/18 08:18 Dose: 40 mg Sodium Chloride (Saline Flush) 2.5 ml FLUSH ASDIRECTED PRN PRN Reason: Keep Vein Open Torsemide (Demadex) 20 mg PO DAILY [facility] Last Admin: 01/29/18 09:04 Dose: 20 mg Discontinued Medications Amlodipine Besylate (Norvasc) 10 mg PO DAILY [facility] Bupivacaine HCl (Marcaine 0.5%) Confirm Administered Dose 30 ml .ROUTE .STK-MED ONE Stop: 01/25/18 12:41 Dextrose/Water (Dextrose 50% In Water) 50 ml IVPUSH ONETIME ONE Stop: 01/25/18 08:22 Last Admin: 01/25/18 08:30 Dose: 50 ml Dextrose/Water (Dextrose 50% In Water) 50 ml IVPUSH ONETIME ONE Stop: 01/25/18 11:57 Last Admin: 01/25/18 12:02 Dose: 50 ml Dextrose/Water (Dextrose 50% In Water) 50 ml IVPUSH ONETIME ONE Stop: 01/26/18 03:48 Last Admin: 01/26/18 03:57 Dose: 50 ml Docusate Sodium (Colace) 100 mg PO BID PRN PRN Reason: Constipation Fentanyl (Sublimaze) Confirm Administered Dose 100 mcg .ROUTE .STK-MED ONE Stop: 01/25/18 11:48 Fentanyl (Sublimaze) 50 mcg IVPUSH Q5M PRN PRN Reason: Pain (severe 7-10) Stop: 01/26/18 13:48 Hydralazine HCl (Apresoline) 10 mg IVPUSH ONETIME ONE Stop: 01/21/18 01:35 Last Admin: 01/21/18 01:52 Dose: 10 mg Sodium Chloride (Normal Saline) 1,000 mls @ 100 mls/hr IV ASDIRECTED [facility] Last Infusion: 01/21/18 08:40 Dose: 100 mls/hr Vancomycin HCl 1,250 mg/ (Sodium Chloride) 250 mls @ 166.667 mls/hr IV Q12H [facility] Last Admin: 01/22/18 08:09 Dose: Not Given Vancomycin HCl 1 gm/ Sodium (Chloride) 250 mls @ 166.667 mls/hr IV Q12H [facility] Last Admin: 01/26/18 21:00 Dose: 166.667 mls/hr Cefepime HCl 1 gm/ Premix 50 mls @ 100 mls/hr IV Q8H [facility] Last Admin: 01/25/18 08:19 Dose: 100 mls/hr Sodium Chloride (Normal Saline) 1,000 mls @ 75 mls/hr IV .BOLUS ONE Stop: 01/24/18 08:20 Last Admin: 01/23/18 19:28 Dose: 75 mls/hr Sodium Chloride (Normal Saline) Confirm Administered Dose 250 mls @ as directed .ROUTE .STK-MED ONE Stop: 01/24/18 22:24 Last Admin: 01/25/18 00:01 Dose: Not Given Lactated Ringer's (Ringers, Lactated) 1,000 mls @ 125 mls/hr IV ASDIRECTED [facility] Last Admin: 01/25/18 04:23 Dose: 125 mls/hr Dextrose/Lactated Ringer's (Dextrose 5%-Lactated Ringers) 1,000 mls @ 75 mls/ hr IV ASDIRECTED [facility] Last Admin: 01/25/18 09:05 Dose: 75 mls/hr Dextrose/Lactated Ringer's (Dextrose 5%-Lactated Ringers) 1,000 mls @ 125 mls/ hr IV ASDIRECTED [facility] Last Admin: 01/25/18 12:07 Dose: 125 mls/hr Ertapenem 1 gm/ Sodium (Chloride) 100 mls @ 200 mls/hr IV Q24H [facility] Last Admin: 01/27/18 16:51 Dose: 200 mls/hr Dextrose/Water (Dextrose 5% In Water) 1,000 mls @ 125 mls/hr IV ASDIRECTED [facility] Last Admin: 01/27/18 03:05 Dose: 125 mls/hr Daptomycin 800 mg/ Sodium (Chloride) 16 mls @ 480 mls/hr IVPUSH DAILY [facility] Last Admin: 01/28/18 09:16 Dose: 480 mls/hr Linezolid 600 mg/ Premix 300 mls @ 300 mls/hr IV Q12H [facility] Last Admin: 01/28/18 09:42 Dose: 300 mls/hr Levofloxacin/Dextrose 750 mg/ (Premix) 150 mls @ 100 mls/hr IV ONETIME ONE Stop: 01/28/18 16:33 Last Admin: 01/28/18 15:53 Dose: 100 mls/hr Insulin Aspart (Novolog) 0 unit SUBCUT TIDAC [facility]; Protocol Last Admin: 01/21/18 12:11 Dose: Not Given Insulin Aspart (Novolog) 0 unit SUBCUT TIDAC [facility] Last Admin: 01/21/18 08:15 Dose: 6 units Insulin Aspart (Novolog) 0 unit SUBCUT TIDAC [facility] Last Admin: 01/21/18 12:12 Dose: Not Given Insulin Aspart (Novolog) 10 unit SUBCUT ONETIME ONE Stop: 01/22/18 06:31 Last Admin: 01/22/18 07:14 Dose: 10 units Insulin Aspart (Novolog) 0 unit SUBCUT TIDAC [facility] Last Admin: 01/26/18 17:21 Dose: Not Given Insulin Aspart (Novolog) 10 unit SUBCUT ONETIME ONE Stop: 01/24/18 20:01 Last Admin: 01/24/18 19:55 Dose: Not Given Insulin Glargine (Lantus Solostar) 42 units SUBCUT BEDTIME [facility] Last Admin: 01/20/18 21:35 Dose: 42 units Insulin Glargine (Lantus Solostar) 35 units SUBCUT BEDTIME MICHAEL Insulin Glargine (Lantus Solostar) 25 units SUBCUT BEDTIME MICHAEL Insulin Glargine (Lantus Solostar) 30 units SUBCUT BEDTIME [facility] Last Admin: 01/25/18 21:45 Dose: 15 units Insulin Human Regular (Novolin R) 10 unit IVPUSH ONETIME ONE; Protocol Stop: 01/22/18 06:26 Last Admin: 01/22/18 07:24 Dose: 10 units Levofloxacin (Levaquin) 500 mg PO Q24H [facility] Last Admin: 01/28/18 18:49 Dose: Not Given Lidocaine (Xylocaine-Mpf 2%) Confirm Administered Dose 10 ml .ROUTE .STK-MED ONE Stop: 01/25/18 11:47 Lidocaine HCl (Xylocaine 1%) Confirm Administered Dose 20 ml .ROUTE .STK-MED ONE Stop: 01/25/18 12:44 Midazolam HCl (Versed 1 Mg/Ml) Confirm Administered Dose 2 mg .ROUTE .STK-MED ONE Stop: 01/25/18 11:48 Nitroglycerin (Nitro-Bid 2%) Confirm Administered Dose 1 gm .ROUTE .STK-MED ONE Stop: 01/25/18 14:28 Ondansetron HCl (Zofran) Confirm Administered Dose 4 mg .ROUTE .STK-MED ONE Stop: 01/25/18 11:48 Propofol (Diprivan 20 Ml) Confirm Administered Dose 400 mg .ROUTE .STK-MED ONE Stop: 01/25/18 11:47 Sodium Polystyrene Sulfonate (Kayexalate) 15 gm PO ONETIME ONE Stop: 01/23/18 09:44 Last Admin: 01/23/18 10:42 Dose: 15 gm Sodium Polystyrene Sulfonate (Kayexalate) 45 gm PO NOW ONE Stop: 01/23/18 18:17 Last Admin: 01/23/18 19:27 Dose: 45 gm Sodium Polystyrene Sulfonate (Kayexalate) Confirm Administered Dose 30 gm .ROUTE .STK-MED ONE Stop: 01/23/18 19:37 Last Admin: 01/23/18 19:52 Dose: Not Given Spironolactone (Aldactone) 25 mg PO DAILY [facility] Vancomycin HCl (Pharmacy To Dose - Vancomycin) 1 dose .XX ASDIRECTED MICHAEL *Q Meaningful Use (DIS) - VTE *Q VTE Pharmacological Contraindications *Q: Risk of Bleeding
== END 2018-01-29 16:00 | disposition home or self-care (01) | DRG 617 ==
LOC: MW.MS 16:07
PROVIDERS: ADMIT Family Medicine; ATTEND Family Medicine
PROC: 0Y6X0Z0 Detachment at Right 5th Toe, Complete, Open Approach (ICD-10-PCS; principal; 2018-01-25)
DX: E10.621 Type 1 diabetes mellitus with foot ulcer (principal); M86.9 Osteomyelitis, unspecified; E10.52 Type 1 diabetes mellitus with diabetic peripheral angiopathy with gangrene; I96 Gangrene, not elsewhere classified; L97.513 Non-pressure chronic ulcer of other part of right foot with necrosis of muscle; E10.65 Type 1 diabetes mellitus with hyperglycemia; K31.84 Gastroparesis; I12.9 Hypertensive chronic kidney disease with stage 1 through stage 4 chronic kidney disease, or unspecified chronic kidney disease; E10.22 Type 1 diabetes mellitus with diabetic chronic kidney disease; K21.9 Gastro-esophageal reflux disease without esophagitis; E10.40 Type 1 diabetes mellitus with diabetic neuropathy, unspecified; D63.1 Anemia in chronic kidney disease; D72.829 Elevated white blood cell count, unspecified; N17.9 Acute kidney failure, unspecified; E10.43 Type 1 diabetes mellitus with diabetic autonomic (poly)neuropathy; N18.9 Chronic kidney disease, unspecified; E83.39 Other disorders of phosphorus metabolism; B95.61 Methicillin susceptible Staphylococcus aureus infection as the cause of diseases classified elsewhere; B96.5 Pseudomonas (aeruginosa) (mallei) (pseudomallei) as the cause of diseases classified elsewhere; Z88.0 Allergy status to penicillin; Z87.19 Personal history of other diseases of the digestive system; Z79.899 Other long term (current) drug therapy; Z87.891 Personal history of nicotine dependence; Z79.4 Long term (current) use of insulin; Z86.14 Personal history of Methicillin resistant Staphylococcus aureus infection
CPT/HCPCS: 36415; 36430; 73718-26-RT; 73718-RT; 76000; 76000-26; 80048; 80202; 81001; 82044; 82272; 82570; 82728; 82962; 83010; 83036; 83550; 83615; 84100; 84300; 85025; 85652; 86156; 86850; 86880; 86900; 86901; 86920; 86921; 86922; 87040; 87070; 87075; 87077; 87186; 87205; 88104; 88302; 88304; 88305; 88311; 93005; 93971-26-RT; 93971-RT; 97161-GP; 97530-GP; A9270-GY; J0360; J0692; J0878; J1335; J1815-GY ×2; J1956; J2020; J2250; J2270; J2405; J2704; J3010; J3370; J7030; J7040; J7042; J7050; J7060; J7120; P9016

== ENCOUNTER 2018-03-26 12:39 | Day surgery (SDC) | payer BC ==
[~2018-03-26 12:39] MED LIST changes: +Bupivacaine 0.5% 30 ML SDV ONE; -Lactated Ringers 1,000 ML IV SCH; +Lidocaine 1% 20 ML MDV ONE; -Sodium Chloride 0.9% 10 ML Syringe FLUSH PRN; -Sodium Chloride 0.9% 2.5 ML Syringe FLUSH PRN
--- NOTE | 2018-03-26 13:54 | PCM.PREANE ---
Preanesthetic Assessment - Procedure Proposed Procedure: Partial resection fifth resection metatarsal right foot - Anesthesia/Transfusion/Family Hx Anesthesia History: Prior Anesthesia Without Reaction Family History of Anesthesia Reaction: No Transfusion History: Prior Transfusion Without Reaction Intubation History: Unknown - Review of Systems Other: Reports: None - Physical Assessment NPO Status Date: 03/25/18 NPO Status Time: 23:30 Height: 5 ft 9 in Weight: 83.007 kg ASA Class: 3 Mental Status: Alert & Oriented x3 Airway Class: Mallampati = 2 Dentition: Reports: Normal Dentition, Broken Tooth/Teeth (back right side) Thyro-Mental Finger Breadths: 3 Mouth Opening Finger Breadths: 3 ROM/Head Extension: Full - Lab Values: Laboratory Last Values POC Glucose 254 mg/dL (60-110) H 03/26/18 13:24 - Allergies Allergies/Adverse Reactions: Allergies Allergy/AdvReac Type Severity Reaction Status Date / Time shrimp Allergy Severe Other Verified 03/25/18 11:08 iodine Allergy Unknown Anaphylactic Verified 03/25/18 11:08 Shock Penicillins Allergy Unknown Anaphylactic Verified 03/25/18 11:08 Shock gluten Allergy Unknown Muscle Uncoded 12/03/17 23:23 Aches - Acknowledgements Anesthesia Type Planned: General Anesthesia, MAC (GETA vs local MAC) PreAnesthesia Questionnaire - Past Health History Medical/Surgical History: Denies Medical/Surgical History HEENT History: Reports: Impaired Vision Other HEENT History: blind right eye Cardiovascular History: Reports: Hypertension Respiratory History: Reports: None Gastrointestinal History: Reports: Gastritis, GERD, Hiatal Hernia Other Gastrointestinal History: h/o gastric ulcers, h/o hiatal hernia Genitourinary History: Reports: Chronic Renal Insuffiency (03/24/18 BUN 21, [employer] 1.5), Diabetic Nephropathy Musculoskeletal History: Reports: None Neurological History: Reports: Neuropathy, Peripheral Psychiatric History: Reports: Anxiety Endocrine/Metabolic History: Reports: Diabetes, Type I Other Endocrine/Metabolic History: brittle diabetic. History of hyperkalemia and DKA Hematologic History: Reports: Anemia, Blood Transfusion(s) Immunologic History: Reports: None Oncologic (Cancer) History: Reports: None Dermatologic History: Reports: Other (See Below) Other Dermatologic History: diabetic foot ulcers - Infectious Disease History Infectious Disease History: Reports: Chicken Pox Other Infectious Disease History: 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 - Past Surgical History Head Surgeries/Procedures: Reports: None HEENT Surgical History: Reports: None Cardiovascular Surgical History: Reports: None Respiratory Surgical History: Reports: None GI Surgical History: Reports: EGD Male Surgical History: Reports: None Endocrine Surgical History: Reports: None Neurological Surgical History: Reports: None Musculoskeletal Surgical History: Reports: Other (See Below) Other Musculoskeletal Surgeries/Procedures:: previous partial amputaton 5th toe rt foot Dermatological Surgical History: Reports: None - SUBSTANCE USE Smoking Status *Q: Former Smoker (patient states quit smoking a year ago) Tobacco Use Within Last Twelve Months: Cigarettes - HOME MEDS Home Medications: Home Meds Omeprazole Magnesium [Prilosec Otc] 40 mg PO DAILY 07/15/17 [History] Doxazosin [Cardura] 2 mg PO BEDTIME 09/25/17 [History] Enalapril [Vasotec] 40 mg PO BEDTIME 09/25/17 [History] Torsemide 20 mg PO DAILY 09/25/17 [History] amLODIPine Besylate [Amlodipine Besylate] 10 mg PO BEDTIME 09/25/17 [History] Ferrous Sulfate 324 mg PO DAILY 01/20/18 [History] Acetaminophen [Tylenol] 650 mg PO Q4H PRN 30 Days #100 tab 01/29/18 [Rx] Levofloxacin [Levaquin] 500 mg PO Q24H #42 tablet 01/29/18 [Rx] hydrALAZINE [Apresoline] 25 mg PO TID 30 Days #90 tablet 01/29/18 [Rx] Insulin Glarg,Human.Rec.Analog [Lantus Solostar] 44 units SUBCUT BEDTIME [History] - CURRENT (IN HOUSE) MEDS Current Meds: Current Medications Discontinued Medications Bupivacaine HCl (Marcaine 0.5%) Confirm Administered Dose 30 ml .ROUTE .STK-MED ONE Stop: 03/26/18 09:43 Lidocaine HCl (Xylocaine 1%) Confirm Administered Dose 20 ml .ROUTE .STK-MED ONE Stop: 03/26/18 09:44
[2018-03-26] MEDS ORDERED: Propofol 200 MG/20 ML SDV ONE (14:33)
[2018-03-26] MEDS ORDERED: fentaNYL 100 MCG/2 ML SDV ONE (14:34)
[2018-03-26] MEDS ORDERED: Lidocaine 2% 5 ML SDV ONE (14:43)
--- NOTE | 2018-03-26 16:20 | PCM.POSTAN ---
POST ANESTHESIA ASSESSMENT - MENTAL STATUS Mental Status: Alert, Oriented - RESPIRATORY Respiratory Status: Respiratory Rate WNL, Airway Patent, O2 Saturation Stable - CARDIOVASCULAR CV Status: Pulse Rate WNL, Blood Pressure Stable - GASTROINTESTINAL GI Status: No Symptoms Free Text/Narrative:: blood sugar is 165. Patient informed. - PAIN Pain Score: 0 (block still active) - POST OP HYDRATION Hydration Status: Adequate & Stable - OBSERVATIONS Free Text/Narrative:: Expect him to go home in near future with limited anesthetic exposure but pain relieved.
--- NOTE | 2018-03-26 16:45 | PCM.OPNOTE ---
- General Post-Op/Procedure Note Date of Surgery/Procedure: 03/26/18 Operative Procedure(s): partial resection fifth metatarsal right foot Findings: consistent with diagnosis Pre Op Diagnosis: osteomyelitis fifth metatarsal right foot Post-Op Diagnosis: osteomyelitis fifth metatarsal right foot Anesthesia Technique: Local, MAC Primary Surgeon: Andres English Anesthesia Provider: Pete Mijares Pathology: fifth metatarsal head right foot bone proximal to fifth metatarsal head right foot EBL in mLs: 15 Complications: none Condition: Good Free Text/Narrative:: Intake & Output 03/26/18 03/26/18 03/26/18 06:59 14:59 22:59 Intake Total 800 Balance 800 swab culture of bone proximal to resected bone of fifth metatarsal taken materials: 3-0 vicryl, 4-0 vicryl, 4-0 prolene injectables: pre-op: 10 ml of 1:1 mix of 1% lidocaine plain and 0.5% marcaine plain, post-op 10 ml of 0.5% marcaine plain
[2018-03-26 17:05] VITALS: BP 169/91
--- NOTE | 2018-03-26 17:12 | PCM48HPAN ---
Post Anesthesia Note - EVALUATION WITHIN 48HRS OF ANESTHETIC Vital Signs in Normal Range: Yes Patient Participated in Evaluation: Yes Respiratory Function Stable: Yes Airway Patent: Yes Cardiovascular Function Stable: Yes Hydration Status Stable: Yes Pain Control Satisfactory: Yes Nausea and Vomiting Control Satisfactory: Yes Mental Status Recovered: Yes Resp Rate: 16
--- NOTE | 2018-03-26 21:26 | OR ---
SURGEON: Andres English DPM DATE OF PROCEDURE: 03/26/2018 IDENTIFICATION: The patient is a 32-year-old male. PREOPERATIVE DIAGNOSIS: Osteomyelitis, 5th metatarsal, right foot. POSTOPERATIVE DIAGNOSIS: Osteomyelitis, 5th metatarsal, right foot. OPERATIVE PROCEDURE: Partial resection, 5th metatarsal, right foot. ANESTHESIA: MAC with a local block consisting of a 1:1 mixture of 10 mL of 0.5% Marcaine plain and 1% lidocaine plain. MATERIALS: 3-0 Vicryl, 4-0 Vicryl, and 3-0 Prolene. INJECTABLES: At the end of the procedure, 10 mL of 0.5% Marcaine plain was injected. HEMOSTASIS: Above ankle pneumatic tourniquet inflated to a pressure of 250 mmHg after an Esmarch bandage exsanguination. COMPLICATIONS: None. CONDITION: The patient tolerated the anesthesia and the procedure well with no complications and with prompt hyperemic response upon deflation of the tourniquet to all digits remaining of the right foot. JUSTIFICATION FOR THE PROCEDURE: The patient is a well-established patient, who has had trouble with control of diabetes for a long time, although it has been better of late, his HbA1c was over 9 at last check today. The patient failed to heal fully following a 5th toe amputation of the right foot several weeks ago and despite treatment with dual antibiotic therapy, Levaquin and rifampin after consultation with the Infectious Disease doctor, Dr. Alexander in [place]. The patient developed erosion of the 5th metatarsal head as documented on x-ray taken in my office. The patient understands the risk of the spread of osteomyelitis and has consented for partial resection of 5th metatarsal head today. He was cleared for surgery by Dr. Infante earlier today with no contraindications to surgery noted. The patient consent form has been signed and all questions answered with no guarantees expressed or implied. PROCEDURE IN DETAIL: Partial resection of 5th metatarsal, right foot. The patient was brought to the operating room, placed on the operating table in a supine position, at which time, anesthesia was induced and an aseptic scrub and drape was performed about the patient's right lower extremity. An above ankle pneumatic tourniquet was affixed and a preoperative local block was given consisting of 1% lidocaine plain and 0.5% Marcaine plain, each mixed in a 1:1 ratio with the other for a total of 10 mL of local anesthesia that was injected in a ring block around the 5th metatarsal of the right foot. The Esmarch bandage was used to exsanguinate the right lower extremity and the above ankle pneumatic tourniquet was raised to a pressure of 250 mmHg. A marking pen was then used to plan the incision. The incision was made over the distal most ulcer at the distal 5th metatarsal head area and extending about 4 cm proximally along the dorsal lateral aspect of the 5th metatarsal. The incision was deepened through the superficial and deep skin layers and subcutaneous tissue in layered fashion, and the distal 5th metatarsal head bone was identified, and all soft tissue and attachments were transected. Care was taken to cut, clamp, ligate, or Bovie any bleeders. However, there were only one or two areas of noted bleeding. A TPS saw was used to transect the 5th metatarsal head at an oblique angle from dorsal distal to proximal plantar. The head was removed in toto, placed in a specimen container with formalin, sent to Pathology for gross and histologic examination. A thin slice, approximately 1.5 mm thickness at most, was then removed from the remaining shaft of the 5th metatarsal at the distal most remaining aspect in order to send to Pathology and it was sent to Pathology in a formalin container for histologic examination to attempt to rule out any signs of osteomyelitis. A swab culture was then taken. The culture was taken at the remaining distal most aspect of the 5th metatarsal shaft. The sharp edge of the remaining distal metatarsal shaft was rasped smooth with combination of feathering technique with the saw and manual rasp. The entire area was flushed throughout the procedure with copious amounts of normal sterile saline and was flushed again prior to layered soft tissue closure. Intraoperative x-rays were taken to document the resection in comparison to preoperative x-rays which were taken at the start of the procedure. The deep and superficial layers were reapproximated with a deep tissue and subcutaneous layers, reapproximated with 3 - 0 Vicryl and later 4-0 Vicryl, and superficial skin was reapproximated with 3-0 Prolene suture. Closure was achieved. However, the viability of the soft tissue and skin is very questionable. At the conclusion of the procedure, the 10 mL of 0.5% Marcaine plain was infiltrated in a ring block fashion around the 5th metatarsal of the right foot. The tourniquet was deflated at a time of 47 minutes during the skin closure. The surgical site was covered with Betadine- soaked Xeroform gauze, followed by fluff gauze, Kerlix roll, and secured with an Fermín bandage. Written and verbal instructions are given to the patient following his recovery period prior to discharge. The patient will be in touch with me, the patient does maintain my cell phone number and has it in writing in the discharge instructions. Plan is for the patient to follow up with me for a dressing change in two days here in my office on Thursday. ISHMAEL CUEVA /[id number] INOCENTE
--- NOTE | 2018-03-29 09:00 | PN ---
PLANNED PROCEDURE: Partial resection of 5th metatarsal, right foot. DIAGNOSIS: Osteomyelitis, 5th metatarsal, right foot. ANESTHESIA PLANNED: MAC with a local block. MEDICAL HISTORY: The patient has known allergies to shrimp, iodine, and penicillins. ACTIVE PROBLEMS: 1. Acid reflux. 2. Anemia. 3. Diabetic foot ulcers. 4. Lower extremity edema. 5. Gastroparesis. 6. Hematochezia. 7. High blood pressure. 8. Hyperkalemia. 9. Osteomyelitis. 10.Enlarged thyroid. 11.Type 1 diabetes. 12.History of umbilical hernia. 13.Additionally, he has a history of chronic kidney disease. MEDICATIONS CURRENTLY: 1. Amlodipine besylate 10 mg oral tablet, 1 tablet daily. 2. Doxazosin mesylate 2 mg oral tablet, 1 tablet daily. 3. Enalapril maleate 20 mg oral tablet, take 2 tablets by mouth daily. 4. Hydralazine hydrochloride 25 mg oral tablet, take 1 tablet 3 times daily. 5. Iron 325 mg oral tablet, take 1 tablet as directed. 6. Lantus SoloStar 100 unit/mL subcutaneous solution pen injection, 50 units once a day. 7. Levofloxacin 500 mg oral tablet, 1 tablet daily. 8. NovoLog FlexPen 100 unit/mL subcutaneous solution Pen injector, inject subcutaneously as directed per sliding scale, maximum of 60 units daily. 9. Omeprazole 40 mg oral capsule delayed release, 1 capsule daily. 10.Rifampin 300 mg oral capsule orally 1 tablet twice a day. 11.Torsemide 20 mg oral tablet 1 tablet daily. PAST SURGICAL HISTORY: Includes right 5th toe amputation by me recently. All of the patient's questions have been answered. No guarantees have been expressed or implied. The patient presents for surgery today March 26, 2018, and has been cleared for surgery by Dr. Infante earlier today with no contraindications to surgery. LABORATORY DATA: From March 24 white blood cell count is 4.95, red blood cell 4.86, hemoglobin 10.6, hematocrit 32.5, and platelets 223. Sodium 142, potassium 4.0, chloride 108, CO2 of 29.9, random glucose was 72 two days ago, however, understand it is higher today. BUN 21 and creatinine 1.5. Hemoglobin A1c 9.2%, which is improved. INR of 1.06, a PTT 28.9. EKG which did show sinus tachycardia. ISHMAEL CUEVA /[id number]
== END 2018-03-26 16:52 | disposition home or self-care (01) ==
LOC: MW.SDS 12:39
PROVIDERS: ATTEND Podiatrist Foot & Ankle Surgery
DX: M86.671 Other chronic osteomyelitis, right ankle and foot (principal); K21.9 Gastro-esophageal reflux disease without esophagitis; K31.84 Gastroparesis; D64.9 Anemia, unspecified; E87.5 Hyperkalemia; E10.621 Type 1 diabetes mellitus with foot ulcer; L97.509 Non-pressure chronic ulcer of other part of unspecified foot with unspecified severity; I12.9 Hypertensive chronic kidney disease with stage 1 through stage 4 chronic kidney disease, or unspecified chronic kidney disease; E10.22 Type 1 diabetes mellitus with diabetic chronic kidney disease; N18.9 Chronic kidney disease, unspecified; K42.9 Umbilical hernia without obstruction or gangrene; Z79.4 Long term (current) use of insulin; Z79.899 Other long term (current) drug therapy; Z88.0 Allergy status to penicillin; Z91.013 Allergy to seafood; Z91.048 Other nonmedicinal substance allergy status
CPT/HCPCS: 28810; 82962; 87070; 87075; 87205; J3010; J2704; J3490

== ENCOUNTER 2018-05-23 19:18 | Observation (INO) | payer BC ==
[2018-05-23] MEDS ORDERED: Sodium Chloride 0.9% 2.5 ML Syringe FLUSH PRN (19:44)
[2018-05-23] MEDS ORDERED: Sodium Chloride 0.9% 10 ML Syringe FLUSH PRN (19:44)
[2018-05-23] MEDS ORDERED: Sodium Chloride 0.9% 1,000 ML IV ONE ×2 (19:44→20:05)
--- NOTE | 2018-05-23 19:44 | EDM.PDOC ---
ED HPI GENERAL MEDICAL PROBLEM - General Chief Complaint: General Stated Complaint: WEAK AND DIZZY Time Seen by Provider: 05/23/18 19:44 Source of Information: Reports: Patient History Limitations: Reports: No Limitations - History of Present Illness INITIAL COMMENTS - FREE TEXT/NARRATIVE: HISTORY AND PHYSICAL: History of present illness: Patient is a 33-year-old male here with complaints of feeling weak and dizzy. The patient sees Dr. Infante has a past medical history significant for uncontrolled type 1 diabetes and iron deficiency anemia, Patient is an appointment on 05/13 and had labs done and was told to call back with his results. Patient states he was told that he might have to have a blood transfusion but he did not hear back from the clinic and has not been able to get a hold of them. He states he is feeling very tired and weak and having a hard time staying awake. Patient states he has felt nauseous and has had occasional episodes of vomiting and diarrhea. He denies any hematemesis, hematochezia, melena. Review of systems: As per history of present illness and below otherwise all systems reviewed and negative. Past medical history: As per history of present illness and as reviewed below otherwise noncontributory. Surgical history: As per history of present illness and as reviewed below otherwise noncontributory. Social history: No reported history of drug or alcohol abuse. Family history: As per history of present illness and as reviewed below otherwise noncontributory. Physical exam: General: Patient sitting comfortably in no acute distress and nontoxic appearing HEENT: Atraumatic, normocephalic, pupils reactive, negative for conjunctival pallor or scleral icterus, mucous membranes moist, throat clear, neck supple, nontender, trachea midline. No meningeal signs. Lungs: Clear to auscultation, breath sounds equal bilaterally, chest nontender. Heart: S1S2, regular, negative for clicks, rubs, or overt murmur. Abdomen: Soft, nondistended, nontender. Negative for masses or hepatosplenomegaly. Negative for costovertebral tenderness. Pelvis: Stable nontender. Genitourinary: Deferred. Rectal: Deferred. Extremities: Atraumatic, negative for cords or calf pain. Neurovascular unremarkable. Neuro: Awake, alert, oriented. Cranial nerves II through XII unremarkable. Cerebellum unremarkable. Motor and sensory unremarkable throughout. Exam nonfocal. Notes: Blood glucose to 170s after D50. Diagnostics: CBC, CMP Hemoccult - negative Therapeutics: 1L Normal Saline IV D50 IV push 1 unit PRBC Prescriptions: Impression: Anemia Uncontrolled diabetes Plan: Discussed with Dr. Jeffery, patient admitted for blood transfusion. Definitive disposition and diagnosis as appropriate pending reevaluation and review of above. right foot Pain Score (Numeric/FACES): 8 - Related Data Allergies Allergy/AdvReac Type Severity Reaction Status Date / Time shrimp Allergy Severe Other Verified 03/25/18 11:08 iodine Allergy Unknown Anaphylactic Verified 03/25/18 11:08 Shock Penicillins Allergy Unknown Anaphylactic Verified 03/25/18 11:08 Shock shellfish derived Allergy Anaphylactic Verified 05/23/18 19:42 Shock gluten Allergy Unknown Muscle Uncoded 12/03/17 23:23 Aches Home Meds: Home Meds Omeprazole Magnesium [Prilosec Otc] 40 mg PO DAILY 07/15/17 [History] Doxazosin [Cardura] 2 mg PO BEDTIME 09/25/17 [History] Enalapril [Vasotec] 40 mg PO BEDTIME 09/25/17 [History] Torsemide 20 mg PO DAILY 09/25/17 [History] amLODIPine Besylate [Amlodipine Besylate] 10 mg PO BEDTIME 09/25/17 [History] Ferrous Sulfate 324 mg PO DAILY 01/20/18 [History] Acetaminophen [Tylenol] 650 mg PO Q4H PRN 30 Days #100 tab 01/29/18 [Rx] hydrALAZINE [Apresoline] 25 mg PO TID 30 Days #90 tablet 01/29/18 [Rx] Insulin Glarg,Human.Rec.Analog [Lantus Solostar] 42 units SUBCUT DAILY 03/26/18 [History] Insulin Aspart [NovoLOG] 0 unit SUBCUT ASDIRECTED PRN 05/23/18 [History] Past Medical History - Past Health History Medical/Surgical History: Denies Medical/Surgical History HEENT History: Reports: Impaired Vision Other HEENT History: blind right eye Cardiovascular History: Reports: Hypertension Respiratory History: Reports: None Gastrointestinal History: Reports: Gastritis, GERD, Hiatal Hernia Other Gastrointestinal History: h/o gastric ulcers, h/o hiatal hernia Genitourinary History: Reports: Chronic Renal Insuffiency (03/24/18 BUN 21, Hydropulper 1.5), Diabetic Nephropathy Musculoskeletal History: Reports: None Neurological History: Reports: Neuropathy, Peripheral Psychiatric History: Reports: Anxiety Endocrine/Metabolic History: Reports: Diabetes, Type I Other Endocrine/Metabolic History: brittle diabetic. History of hyperkalemia and DKA Hematologic History: Reports: Anemia Immunologic History: Reports: None Oncologic (Cancer) History: Reports: None Dermatologic History: Reports: Other (See Below) Other Dermatologic History: diabetic foot ulcers - Infectious Disease History Infectious Disease History: Reports: Chicken Pox Other Infectious Disease History: 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 - Past Surgical History Head Surgeries/Procedures: Reports: None HEENT Surgical History: Reports: None Cardiovascular Surgical History: Reports: None Respiratory Surgical History: Reports: None GI Surgical History: Reports: EGD Male Surgical History: Reports: None Endocrine Surgical History: Reports: None Neurological Surgical History: Reports: None Musculoskeletal Surgical History: Reports: Other (See Below) Other Musculoskeletal Surgeries/Procedures:: previous partial amputaton 5th toe rt foot Dermatological Surgical History: Reports: None Social & Family History - Family History Family Medical History: Noncontributory Cardiac: Reports: High Cholesterol, Hypertension OBGYN: Reports: Neurological: Reports: None - Caffeine Use Caffeine Use: Reports: Coffee - Living Situation & Occupation Living situation: Reports: Single Occupation: Employed (Currently unemployed.) ED ROS GENERAL - Review of Systems Review Of Systems: ROS reveals no pertinent complaints other than HPI. ED EXAM, GENERAL - Physical Exam Exam: See Below (see dictation) Course - Vital Signs Last Recorded V/S: Last Vital Signs Temp 36.3 C 05/23/18 19:37 Pulse 107 H 05/23/18 19:37 Resp 19 05/23/18 19:37 BP 143/80 H 05/23/18 19:37 Pulse Ox 98 05/23/18 19:37 Orthostatic Blood Pressure [ 142/76 Standing] Orthostatic Blood Pressure [ 148/84 Sitting] Orthostatic Blood Pressure [ 176/92 Supine] - Orders/Labs/Meds Orders: Active Orders 24 hr Category Date Time Status Sodium Chloride 0.9% [Normal Saline] 1,000 ml Med 05/23/18 20:05 Active IV STAT Sodium Chloride 0.9% [Saline Flush] Med 05/23/18 19:44 Active 10 ml FLUSH ASDIRECTED PRN Sodium Chloride 0.9% [Saline Flush] Med 05/23/18 19:44 Active 2.5 ml FLUSH ASDIRECTED PRN Saline Lock Insert [OM.PC] Stat Oth 05/23/18 19:44 Ordered Medication Orders Sodium Chloride (Normal Saline) 1,000 mls @ 999 mls/hr IV STAT ONE Stop: 05/23/18 21:05 Sodium Chloride (Saline Flush) 10 ml FLUSH ASDIRECTED PRN PRN Reason: Keep Vein Open Last Admin: 05/23/18 20:06 Dose: 10 ml Sodium Chloride (Saline Flush) 2.5 ml FLUSH ASDIRECTED PRN PRN Reason: Keep Vein Open Last Admin: 05/23/18 20:07 Dose: 2.5 ml Labs: Laboratory Tests 05/23/18 05/23/18 Range/Units 20:04 20:04 WBC 13.36 H (4.0-11.0) K/uL RBC 3.56 L (4.50-5.90) M/uL Hgb 7.7 L (13.0-17.0) g/dL Hct 23.9 L (38.0-50.0) % MCV 67.1 L (80.0-98.0) fL MCH 21.6 L (27.0-32.0) pg MCHC 32.2 (31.0-37.0) g/dL RDW Std Deviation 37.5 (28.0-62.0) fl RDW Coeff of Dania 16 H (11.0-15.0) % Plt Count 517 H (150-400) K/uL MPV 8.80 (7.40-12.00) fL Neut % (Auto) 68.6 (48.0-80.0) % Lymph % (Auto) 21.4 (16.0-40.0) % [place] % (Auto) 8.1 (0.0-15.0) % Eos % (Auto) 1.6 (0.0-7.0) % Baso % (Auto) 0.3 (0.0-1.5) % Neut # (Auto) 9.2 H (1.4-5.7) K/uL Lymph # (Auto) 2.9 H (0.6-2.4) K/uL [place] # (Auto) 1.1 H (0.0-0.8) K/uL Eos # (Auto) 0.2 (0.0-0.7) K/uL Baso # (Auto) 0.0 (0.0-0.1) K/uL Nucleated RBC % 0.0 /100WBC Nucleated RBCs # 0 K/uL Sodium 138 (136-148) mmol/L Potassium 4.8 (3.5-5.1) mmol/L Chloride 103 (98-107) mmol/L Carbon Dioxide 28.5 (21.0-32.0) mmol/L BUN 30 H (7.0-18.0) mg/dL Creatinine 2.0 H (0.8-1.3) mg/dL Est Cr Clr Drug Dosing 53.03 mL/min Estimated GFR (MDRD) 38.9 ml/min Glucose 39 L* (74-106) mg/dL Calcium 9.0 (8.5-10.1) mg/dL Total Bilirubin 0.1 L (0.2-1.0) mg/dL AST 17 (15-37) IU/L ALT 13 L (14-63) IU/L Alkaline Phosphatase 92 (46-116) U/L Total Protein 8.4 H (6.4-8.2) g/dL Albumin 2.4 L (3.4-5.0) g/dL Globulin 6.0 H (2.0-3.5) g/dL Albumin/Globulin Ratio 0.4 L (1.3-2.8) Meds: Medications Generic Name Dose Route Start Last Admin Trade Name Freq PRN Reason Stop Dose Admin Sodium Chloride 1,000 mls @ 999 mls/hr 05/23/18 20:05 Normal Saline IV 05/23/18 21:05 STAT ONE Sodium Chloride 10 ml 05/23/18 19:44 05/23/18 20:06 Saline Flush FLUSH 10 ml ASDIRECTED PRN Administration Keep Vein Open Sodium Chloride 2.5 ml 05/23/18 19:44 05/23/18 20:07 Saline Flush FLUSH 2.5 ml ASDIRECTED PRN Administration Keep Vein Open Discontinued Medications Generic Name Dose Route Start Last Admin Trade Name Freq PRN Reason Stop Dose Admin Dextrose/Water 50 ml 05/23/18 20:05 05/23/18 20:14 Dextrose 50% In Water IVPUSH 05/23/18 20:06 50 ml ONETIME ONE Administration Sodium Chloride 1,000 mls @ 999 mls/hr 05/23/18 19:44 05/23/18 19:56 Normal Saline IV 05/23/18 20:44 999 mls/hr STAT ONE Administration Departure - Departure Time of Disposition: 21:01 Disposition: Refer to Observation Condition: Good Clinical Impression: Uncontrolled diabetes mellitus Anemia Qualifiers: Anemia type: due to chronic kidney disease - Discharge Information Referrals: PCP,None [Primary Care Provider] - Forms: ED Department Discharge - My Orders Last 24 Hours: My Active Orders 05/23/18 19:44 Sodium Chloride 0.9% [Saline Flush] 10 ml FLUSH ASDIRECTED PRN Sodium Chloride 0.9% [Saline Flush] 2.5 ml FLUSH ASDIRECTED PRN Saline Lock Insert [OM.PC] Stat 05/23/18 20:05 Sodium Chloride 0.9% [Normal Saline] 1,000 ml IV STAT - Assessment/Plan Last 24 Hours: My Active Orders 05/23/18 19:44 Sodium Chloride 0.9% [Saline Flush] 10 ml FLUSH ASDIRECTED PRN Sodium Chloride 0.9% [Saline Flush] 2.5 ml FLUSH ASDIRECTED PRN Saline Lock Insert [OM.PC] Stat 05/23/18 20:05 Sodium Chloride 0.9% [Normal Saline] 1,000 ml IV STAT
[2018-05-23] MEDS ORDERED: 50% Dextrose in Water 50 ML Syringe IVPUSH ONE (20:05)
[2018-05-23] MEDS ORDERED: Acetaminophen 325 MG Tab PO PRN (23:24)
[2018-05-24] MEDS ORDERED: oxyCODONE 5 MG Tab PO PRN (01:04)
--- NOTE | 2018-05-24 08:57 | PCM.HP ---
Addendum entered and electronically signed by Antione Kaminski MD 05/24/18 17:12 : Discharge summary: Patient received 2 units of packed RBC, he did well and did not have any reaction and was stable throughout his hospitalization stay and was subsequently discharged with follow-up with his primary care physician. Patient did have a mildly elevated leukocytosis which is likely due to to his right foot fifth digit amputation, patient states that he has Dr. English assessing the foot along with infectious disease in [place] and has a appointment with Dr. English on the for possible restarting of antibiotics. Original Note: H&P History of Present Illness - General Date of Service: 05/24/18 Admit Problem/Dx: Admission Diagnosis/Problem Admission Diagnosis/Problem Iron deficiency anemia Source of Information: Patient History Limitations: Reports: No Limitations - History of Present Illness Initial Comments - Free Text/Narative: his is a 33-year-old -French male that is presenting with acute on chronic anemia requiring a blood transfusion, the patient has had a ssues with anemia in the past and has had prior to the current one. he sees Dr. Rodas his primary care physician, and was supposed to have this blood transfusion scheduled in an outpatient setting unfortunately due to scheduling errors he hadn't yet to receive it prior to entering the ER. He also has a history of uncontrolled type I diabetes with a recent right fifth digit amputation done by Dr. English. he states that he has been battling an infection in that foot for some time he also sees infectious disease in [place]. Patient presently is complaining of fatigue and tiredness secondary to acute anemic symptoms. He does have an elevated white count but denies any sputum production or cough or shortness of breath or fevers or chills. he denies any urinary symptoms The likely source of his infection is his right foot. right foot Pain Score (Numeric/FACES): 0 - Related Data Allergies/Adverse Reactions: Allergies Allergy/AdvReac Type Severity Reaction Status Date / Time shrimp Allergy Severe Other Verified 03/25/18 11:08 iodine Allergy Unknown Anaphylactic Verified 03/25/18 11:08 Shock Penicillins Allergy Unknown Anaphylactic Verified 03/25/18 11:08 Shock shellfish derived Allergy Anaphylactic Verified 05/23/18 19:42 Shock gluten Allergy Unknown Muscle Uncoded 12/03/17 23:23 Aches Home Medications: Home Meds Omeprazole Magnesium [Prilosec Otc] 40 mg PO DAILY 07/15/17 [History] Doxazosin [Cardura] 2 mg PO BEDTIME 09/25/17 [History] Enalapril [Vasotec] 40 mg PO BEDTIME 09/25/17 [History] Torsemide 20 mg PO DAILY 09/25/17 [History] amLODIPine Besylate [Amlodipine Besylate] 10 mg PO BEDTIME 09/25/17 [History] Ferrous Sulfate 324 mg PO DAILY 01/20/18 [History] Acetaminophen [Tylenol] 650 mg PO Q4H PRN 30 Days #100 tab 01/29/18 [Rx] hydrALAZINE [Apresoline] 25 mg PO TID 30 Days #90 tablet 01/29/18 [Rx] Insulin Glarg,Human.Rec.Analog [Lantus Solostar] 42 units SUBCUT BEDTIME [History] Insulin Aspart [NovoLOG] 0 unit SUBCUT ASDIRECTED PRN 05/23/18 [History] Past Medical History - Past Health History Medical/Surgical History: Denies Medical/Surgical History HEENT History: Reports: Impaired Vision Other HEENT History: blind right eye Cardiovascular History: Reports: Hypertension Respiratory History: Reports: None Gastrointestinal History: Reports: Gastritis, GERD, Hiatal Hernia Other Gastrointestinal History: h/o gastric ulcers, h/o hiatal hernia Genitourinary History: Reports: Chronic Renal Insuffiency, Diabetic Nephropathy Musculoskeletal History: Reports: None Neurological History: Reports: Neuropathy, Peripheral Psychiatric History: Reports: Anxiety Endocrine/Metabolic History: Reports: Diabetes, Type I Other Endocrine/Metabolic History: brittle diabetic. History of hyperkalemia and DKA Hematologic History: Reports: Anemia Immunologic History: Reports: None Oncologic (Cancer) History: Reports: None Dermatologic History: Reports: Other (See Below) Other Dermatologic History: diabetic foot ulcers - Infectious Disease History Infectious Disease History: Reports: Chicken Pox Other Infectious Disease History: 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 - Past Surgical History Head Surgeries/Procedures: Reports: None HEENT Surgical History: Reports: None Cardiovascular Surgical History: Reports: None Respiratory Surgical History: Reports: None GI Surgical History: Reports: EGD Male Surgical History: Reports: None Endocrine Surgical History: Reports: None Neurological Surgical History: Reports: None Musculoskeletal Surgical History: Reports: Other (See Below) Other Musculoskeletal Surgeries/Procedures:: previous partial amputaton 5th toe rt foot Dermatological Surgical History: Reports: None Social & Family History - Family History Family Medical History: Noncontributory Cardiac: Reports: High Cholesterol, Hypertension OBGYN: Reports: Neurological: Reports: None - Tobacco Use Smoking Status *Q: Never Smoker Second Hand Smoke Exposure: No - Caffeine Use Caffeine Use: Reports: Coffee, Energy Drinks, Soda - Recreational Drug Use Recreational Drug Use: No - Living Situation & Occupation Living situation: Reports: Single Occupation: Employed (Currently unemployed.) H&P Review of Systems - Review of Systems: Review Of Systems: ROS reveals no pertinent complaints other than HPI. Exam - Exam Exam: See Below - Vital Signs Vital Signs: Last Vital Signs Temp 36.6 C 05/24/18 07:50 Pulse 92 05/24/18 07:50 Resp 20 05/24/18 07:50 BP 187/100 H 05/24/18 07:50 Pulse Ox 99 05/24/18 07:50 Orthostatic Blood Pressure [ 142/76 Standing] Orthostatic Blood Pressure [ 148/84 Sitting] Orthostatic Blood Pressure [ 176/92 Supine] Weight: 83 kg - Exam General: Alert, Oriented, Cooperative Neck: Supple Lungs: Clear to Auscultation, Normal Respiratory Effort Cardiovascular: Regular Rate, Regular Rhythm GI/Abdominal Exam: Normal Bowel Sounds Back Exam: Normal Inspection Extremities: Other (right foot amputation of the fifth digit, area is heavily bandaged up but does not appear to be tender on palpation) - Patient Data Lab Results Last 24 hrs: Laboratory Results - last 24 hr 05/23/18 05/23/18 05/23/18 Range/Units 20:01 20:04 20:04 WBC 13.36 H (4.0-11.0) K/uL RBC 3.56 L (4.50-5.90) M/uL Hgb 7.7 L (13.0-17.0) g/dL Hct 23.9 L (38.0-50.0) % MCV 67.1 L (80.0-98.0) fL MCH 21.6 L (27.0-32.0) pg MCHC 32.2 (31.0-37.0) g/dL RDW Std Deviation 37.5 (28.0-62.0) fl RDW Coeff of Dania 16 H (11.0-15.0) % Plt Count 517 H (150-400) K/uL MPV 8.80 (7.40-12.00) fL Neut % (Auto) 68.6 (48.0-80.0) % Lymph % (Auto) 21.4 (16.0-40.0) % [place] % (Auto) 8.1 (0.0-15.0) % Eos % (Auto) 1.6 (0.0-7.0) % Baso % (Auto) 0.3 (0.0-1.5) % Neut # (Auto) 9.2 H (1.4-5.7) K/uL Lymph # (Auto) 2.9 H (0.6-2.4) K/uL [place] # (Auto) 1.1 H (0.0-0.8) K/uL Eos # (Auto) 0.2 (0.0-0.7) K/uL Baso # (Auto) 0.0 (0.0-0.1) K/uL Nucleated RBC % 0.0 /100WBC Nucleated RBCs # 0 K/uL Sodium 138 (136-148) mmol/L Potassium 4.8 (3.5-5.1) mmol/L Chloride 103 (98-107) mmol/L Carbon Dioxide 28.5 (21.0-32.0) mmol/L BUN 30 H (7.0-18.0) mg/dL Creatinine 2.0 H (0.8-1.3) mg/dL Est Cr Clr Drug Dosing 53.03 mL/min Estimated GFR (MDRD) 38.9 ml/min Glucose 39 L* (74-106) mg/dL POC Glucose 38 L (60-110) mg/dL Calcium 9.0 (8.5-10.1) mg/dL Total Bilirubin 0.1 L (0.2-1.0) mg/dL AST 17 (15-37) IU/L ALT 13 L (14-63) IU/L Alkaline Phosphatase 92 (46-116) U/L Total Protein 8.4 H (6.4-8.2) g/dL Albumin 2.4 L (3.4-5.0) g/dL Globulin 6.0 H (2.0-3.5) g/dL Albumin/Globulin Ratio 0.4 L (1.3-2.8) Blood Type Antibody Screen Cold Antibody Screen Crossmatch 05/23/18 05/23/18 05/24/18 Range/Units 20:31 21:17 01:02 WBC (4.0-11.0) K/uL RBC (4.50-5.90) M/uL Hgb (13.0-17.0) g/dL Hct (38.0-50.0) % MCV (80.0-98.0) fL MCH (27.0-32.0) pg MCHC (31.0-37.0) g/dL RDW Std Deviation (28.0-62.0) fl RDW Coeff of Dania (11.0-15.0) % Plt Count (150-400) K/uL MPV (7.40-12.00) fL Neut % (Auto) (48.0-80.0) % Lymph % (Auto) (16.0-40.0) % [place] % (Auto) (0.0-15.0) % Eos % (Auto) (0.0-7.0) % Baso % (Auto) (0.0-1.5) % Neut # (Auto) (1.4-5.7) K/uL Lymph # (Auto) (0.6-2.4) K/uL [place] # (Auto) (0.0-0.8) K/uL Eos # (Auto) (0.0-0.7) K/uL Baso # (Auto) (0.0-0.1) K/uL Nucleated RBC % /100WBC Nucleated RBCs # K/uL Sodium (136-148) mmol/L Potassium (3.5-5.1) mmol/L Chloride (98-107) mmol/L Carbon Dioxide (21.0-32.0) mmol/L BUN (7.0-18.0) mg/dL Creatinine (0.8-1.3) mg/dL Est Cr Clr Drug Dosing mL/min Estimated GFR (MDRD) ml/min Glucose (74-106) mg/dL POC Glucose 192 H 174 H (60-110) mg/dL Calcium (8.5-10.1) mg/dL Total Bilirubin (0.2-1.0) mg/dL AST (15-37) IU/L ALT (14-63) IU/L Alkaline Phosphatase (46-116) U/L Total Protein (6.4-8.2) g/dL Albumin (3.4-5.0) g/dL Globulin (2.0-3.5) g/dL Albumin/Globulin Ratio (1.3-2.8) Blood Type O POSITIVE Antibody Screen NEGATIVE Cold Antibody Screen POSITIVE Crossmatch See Detail Result Diagrams: 05/23/18 20:04 05/23/18 20:04 Problem List Initiated/Reviewed/Updated: Yes Orders Last 24hrs: Active Orders 24 hr Category Date Time Status Admission Status [Patient Status] [ADT] Stat ADT 05/23/18 21:30 Active Verify Patient Consent Obtain [RC] ASDIRECTED Care 05/23/18 21:40 Active Vital Signs [RC] Q4H Care 05/24/18 00:23 Active ADA Diabetic [[employer] Diet] [DIET Diet 05/24/18 Breakfast Active ] Acetaminophen [Tylenol] Med 05/23/18 23:24 Active 650 mg PO Q6H PRN Sodium Chloride 0.9% [Saline Flush] Med 05/23/18 19:44 Active 10 ml FLUSH ASDIRECTED PRN Sodium Chloride 0.9% [Saline Flush] Med 05/23/18 19:44 Active 2.5 ml FLUSH ASDIRECTED PRN oxyCODONE Med 05/24/18 01:04 Active 5 mg PO Q6H PRN Saline Lock Insert [OM.PC] Stat Oth 05/23/18 19:44 Ordered Transfuse PRBC [Transfuse Red Blood Cells] [COMM] Stat Oth 05/23/18 20:59 Ordered Medication Orders Acetaminophen (Tylenol) 650 mg PO Q6H PRN PRN Reason: Pain Oxycodone HCl (Oxycodone) 5 mg PO Q6H PRN PRN Reason: Pain Last Admin: 05/24/18 02:20 Dose: 5 mg Sodium Chloride (Saline Flush) 10 ml FLUSH ASDIRECTED PRN PRN Reason: Keep Vein Open Last Admin: 05/23/18 20:06 Dose: 10 ml Sodium Chloride (Saline Flush) 2.5 ml FLUSH ASDIRECTED PRN PRN Reason: Keep Vein Open Last Admin: 05/23/18 20:07 Dose: 2.5 ml Assessment/Plan Comment:: 33-year-old -French male presenting with acute on chronic anemia requiring a blood transfusion with a significant medical history of type 1 diabetes uncontrolled and recent amputation of the fifth digit of the right foot. - 2 units of RBC, repeat labs after transfusion completed -Leukocytosis likely source ofinfection is the right foot shall obtain wound cultures -patient states that infectious disease had recently taken him off antibioticsas they wanted to assess what he may possibly be growingfrom the culture standpoint and would decide upon therapy once he sees Dr. English the th of this month.
[2018-05-24] MEDS ORDERED: Sodium Chloride 0.9% 2.5 ML Syringe FLUSH PRN (09:54)
[2018-05-24] MEDS ORDERED: Ondansetron 4 MG/2 ML SDV IVPUSH PRN (09:54)
[2018-05-24] MEDS ORDERED: Sodium Chloride 0.9% 10 ML Syringe FLUSH PRN (09:54)
[2018-05-24] MEDS ORDERED: Sodium Chloride 0.9% 1,000 ML IV SCH (10:00)
[2018-05-24] MEDS ORDERED: Enoxaparin 40 MG/0.4 ML Syringe SUBCUT SCH (10:00)
[2018-05-24] MEDS ORDERED: hydrALAZINE 25 MG Tab PO SCH (14:17)
[2018-05-24 19:01] VITALS: BP 177/100
== END 2018-05-24 19:15 | disposition home or self-care (01) ==
LOC: MW.ED 19:18 → MW.MS 21:30
PROVIDERS: ADMIT Internal Medicine; ATTEND Internal Medicine
DX: D50.9 Iron deficiency anemia, unspecified (principal); I10 Essential (primary) hypertension; K21.9 Gastro-esophageal reflux disease without esophagitis; K44.9 Diaphragmatic hernia without obstruction or gangrene; E10.21 Type 1 diabetes mellitus with diabetic nephropathy; E10.621 Type 1 diabetes mellitus with foot ulcer; L97.519 Non-pressure chronic ulcer of other part of right foot with unspecified severity; Z88.0 Allergy status to penicillin; Z91.013 Allergy to seafood; Z91.018 Allergy to other foods; Z91.048 Other nonmedicinal substance allergy status; Z79.899 Other long term (current) drug therapy; Z79.4 Long term (current) use of insulin; Z89.421 Acquired absence of other right toe(s)
CPT/HCPCS: 36415; 36430; 80053; 81001; 82962; 85014; 85018; 85025; 86156; 86850; 86900; 86901; 86920; 86921; 86922; 96361; 96372; 96374; 99285; A9270; G0378; J1650; J7040; J7060; P9016

== ENCOUNTER 2018-10-22 21:16 | Emergency (ER) | payer OTHER ==
[2018-10-22] MEDS ORDERED: Ondansetron 4 MG/2 ML SDV IVPUSH ONE (21:22)
[2018-10-22] MEDS ORDERED: Pantoprazole 40 MG Vial IVPUSH ONE (21:22)
[2018-10-22] MEDS ORDERED: Sodium Chloride 0.9% 2.5 ML Syringe FLUSH PRN (21:22)
[2018-10-22] MEDS ORDERED: Sodium Chloride 0.9% 10 ML Syringe FLUSH PRN (21:22)
[2018-10-22] MEDS ORDERED: Sodium Chloride 0.9% 1,000 ML IV ONE (21:22)
--- NOTE | 2018-10-22 21:24 | EDM.PDOC ---
ED HPI GENERAL MEDICAL PROBLEM - General Chief Complaint: Diabetic Complaint Stated Complaint: NAUSEA AND VOMITING Time Seen by Provider: 10/22/18 21:20 - History of Present Illness INITIAL COMMENTS - FREE TEXT/NARRATIVE: HISTORY AND PHYSICAL: History of present illness: The patient is a 33-year-old male with a history of hypertension iron deficiency anemia and type 1 diabetes who has a known history of medical noncompliance and has had frequent visits to our ER for DKA and hyperglycemia and presents with nausea and vomiting that started this morning. He says he has been following in the clinic with Dr. Infante and has not had his meds adjusted recently and that he had a normal day yesterday. He says that his fasting blood sugar is around 160 and that he has been doing well with his medications. He said he awoke this morning and had nausea and had sequential vomiting all day and has not been able to tolerate much by mouth. He's had no diarrhea no stomach pain no chest pain or shortness of breath. 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 The patient arrives via EMS and they've given him Zofran 4 mg and some IV fluids. The patient is not very interactive and communicative with me on my evaluation and has to be as questions multiple times and her to answer them. He seems very annoyed with my questions and my interview. His vomitus in the room is somewhat dark in color and has blood in it but it is a scant amount and he is mostly retching and dry heaving. According to nursing and my prior interactions with them this is typical when he has been vomiting all day. The patient denies any trouble with his bowels and had a bowel movement today. He again denies abdominal pain headache neck pain fevers chills or upper respiratory issues. Review of systems: As per history of present illness and below otherwise all systems reviewed and negative. Past medical history: As per history of present illness and as reviewed below otherwise noncontributory. Surgical history: As per history of present illness and as reviewed below otherwise noncontributory. Social history: No reported history of drug or alcohol abuse. Family history: As per history of present illness and as reviewed below otherwise noncontributory. Physical exam: General: Well developed well-nourished thin man who is nontoxic and vital signs were noted by me HEENT: Atraumatic, normocephalic, pupils reactive, negative for conjunctival pallor or scleral icterus, mucous membranes tacky throat clear, neck supple, nontender, trachea midline. There is no gross smell of ketones on the patient's breath Lungs: Clear to auscultation, breath sounds equal bilaterally, chest nontender. No wheezing stridor or work of breathing Heart: S1S2, regular rate and rhythm no overt murmurs Abdomen: Soft, nondistended, nontender. Negative for masses or hepatosplenomegaly. Negative for costovertebral tenderness. On deep palpation there is actually no tenderness rebound or guarding on my examination and there is no distention. Bowel sounds are slightly hypoactive Pelvis: Stable nontender. Genitourinary: Deferred. Rectal: Deferred. Extremities: Atraumatic, negative for cords or calf pain. Neurovascular unremarkable. Full range of motion without defects or deficits. At the right leg the dressing was removed and the recent BKA site has Steri-Strips in place and there is no drainage erythema swelling or skin changes. The wound appears to be healing well. Neuro: Awake, alert, oriented. Cranial nerves II through XII unremarkable. Cerebellum unremarkable. Motor and sensory unremarkable throughout. Exam nonfocal. Diagnostics: CBC CMP amylase lipase venous blood gas of serum ketones hemoglobin A1c H. pylori UA with reflex culture abdominal films with chest x-ray EKG Therapeutics: IV fluids Protonix Zofran Reglan and Benadryl hydralazine Vasotec On today's labs patient has a hemoglobin A1c of 10.7 and his BUN and creatinine are not off from his baseline when I reviewed those labs from May until September. He does not have an anion gap and his bicarbonate is not lowered. Patient's blood pressure was elevated on arrival and after a dose of hydralazine 10 mg IV push it is currently 173/101 with a heart rate of 100. The patient is resting and laying down with these numbers and he is not having active vomiting after the Reglan and Benadryl. The patient usually does take hydralazine and Vasotec for his blood pressure and is unclear if he vomited those up orthopedist did not take those doses today. His Vasotec is an evening dose for him. I will give him some Vasotec IV and reevaluate I've gone in and spoken to the patient and given him his testing results. He has told me that throughout the course of today with the vomiting he has not been able to tolerate any of his medications so he has not taken any of his 4 blood pressure medications today. This is likely why he is running on the higher side. He is aware that I did give him some dosing here but that he should still take his evening doses when he goes home. It appears that the Reglan the Benadryl seemed to work best for him and I did discuss with him the possibility that he has some component of gastroparesis and he has never heard of that before. I've asked him to discuss this with Dr. Infante along with his elevated hemoglobin A1c. We will give him some ice chips and reevaluate his blood pressure and plan for discharge home. I will give him a prescription for the Reglan and have advised him to take it with Benadryl. Impression: Vomiting, improved with history of type 1 diabetes stable hypertension with history of hypertension; unable to take medications due to vomiting Definitive disposition and diagnosis as appropriate pending reevaluation and review of above. Throat Pain Score (Numeric/FACES): 8 - Related Data Allergies Allergy/AdvReac Type Severity Reaction Status Date / Time shrimp Allergy Severe Other Verified 10/22/18 21:18 iodine Allergy Unknown Anaphylactic Verified 10/22/18 21:18 Shock Penicillins Allergy Unknown Anaphylactic Verified 10/22/18 21:18 Shock shellfish derived Allergy Anaphylactic Verified 10/22/18 21:18 Shock gluten Allergy Unknown Muscle Uncoded 10/22/18 21:18 Aches Home Meds: Home Meds Omeprazole Magnesium [Prilosec Otc] 40 mg PO DAILY 07/15/17 [History] Doxazosin [Cardura] 2 mg PO BEDTIME 09/25/17 [History] Enalapril [Vasotec] 40 mg PO BEDTIME 09/25/17 [History] Torsemide 20 mg PO DAILY 09/25/17 [History] amLODIPine Besylate [Amlodipine Besylate] 10 mg PO BEDTIME 09/25/17 [History] Ferrous Sulfate 324 mg PO DAILY 01/20/18 [History] hydrALAZINE [Apresoline] 25 mg PO TID 30 Days #90 tablet 01/29/18 [Rx] Insulin Glarg,Human.Rec.Analog [Lantus Solostar] 50 units SUBCUT BEDTIME [History] Insulin Aspart [NovoLOG] 0 unit SUBCUT ASDIRECTED PRN 05/23/18 [History] Past Medical History - Past Health History Medical/Surgical History: Denies Medical/Surgical History HEENT History: Reports: Impaired Vision Other HEENT History: blind right eye Cardiovascular History: Reports: Hypertension Respiratory History: Reports: None Gastrointestinal History: Reports: Gastritis, GERD, Hiatal Hernia Other Gastrointestinal History: h/o gastric ulcers, h/o hiatal hernia Genitourinary History: Reports: Chronic Renal Insuffiency, Diabetic Nephropathy Musculoskeletal History: Reports: Amputation Neurological History: Reports: Neuropathy, Peripheral Psychiatric History: Reports: Anxiety Endocrine/Metabolic History: Reports: Diabetes, Type I Other Endocrine/Metabolic History: brittle diabetic. 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 - Past Surgical History Head Surgeries/Procedures: Reports: None HEENT Surgical History: Reports: None Cardiovascular Surgical History: Reports: None Respiratory Surgical History: Reports: None GI Surgical History: Reports: EGD Male Surgical History: Reports: None Endocrine Surgical History: Reports: None Neurological Surgical History: Reports: None Musculoskeletal Surgical History: Reports: Other (See Below) Other Musculoskeletal Surgeries/Procedures:: previous partial amputaton 5th toe rt foot Dermatological Surgical History: Reports: None Social & Family History - Family History Family Medical History: Noncontributory Cardiac: Reports: High Cholesterol, Hypertension OBGYN: Reports: Neurological: Reports: None - Caffeine Use Caffeine Use: Reports: Coffee, Energy Drinks, Soda - Living Situation & Occupation Living situation: Reports: Single Occupation: Employed (Currently unemployed.) ED ROS GENERAL - Review of Systems Review Of Systems: ROS reveals no pertinent complaints other than HPI. ED EXAM GENERAL NO PERIP PULSE - Physical Exam Exam: See Below (See dictation) Course - Vital Signs Last Recorded V/S: Last Vital Signs Temp 36.0 C 10/22/18 21:21 Pulse 100 10/22/18 22:50 Resp 16 10/22/18 22:26 BP 177/131 H 10/22/18 23:15 Pulse Ox 98 10/22/18 22:50 - Orders/Labs/Meds Orders: Active Orders 24 hr Category Date Time Status Blood Glucose Check, Bedside [RC] ONETIME Care 10/22/18 21:21 Active Cardiac Monitoring [RC] . DIRECTED Care 10/22/18 21:21 Active EKG Documentation Completion [RC] STAT Care 10/22/18 21:21 Active Oxygen Therapy, ED [RC] ASDIRECTED Care 10/22/18 21:21 Active Pulse Oximetry [RC] ASDIRECTED Care 10/22/18 21:21 Active Sodium Chloride 0.9% [Saline Flush] Med 10/22/18 21:22 Active 10 ml FLUSH ASDIRECTED PRN Sodium Chloride 0.9% [Saline Flush] Med 10/22/18 21:22 Active 2.5 ml FLUSH ASDIRECTED PRN Saline Lock Insert [OM.PC] Stat Oth 10/22/18 21:20 Ordered Medication Orders Sodium Chloride (Saline Flush) 10 ml FLUSH ASDIRECTED PRN PRN Reason: Keep Vein Open Sodium Chloride (Saline Flush) 2.5 ml FLUSH ASDIRECTED PRN PRN Reason: Keep Vein Open Labs: Laboratory Tests 10/22/18 10/22/18 10/22/18 Range/Units 21:25 21:25 21:25 WBC 10.25 (4.0-11.0) K/uL RBC 4.85 (4.50-5.90) M/uL Hgb 10.5 L (13.0-17.0) g/dL Hct 32.9 L (38.0-50.0) % MCV 67.8 L (80.0-98.0) fL MCH 21.6 L (27.0-32.0) pg MCHC 31.9 (31.0-37.0) g/dL RDW Std Deviation 39.5 (28.0-62.0) fl RDW Coeff of Dania 16 H (11.0-15.0) % Plt Count 302 (150-400) K/uL MPV 9.80 (7.40-12.00) fL Neut % (Auto) 78.4 (48.0-80.0) % Lymph % (Auto) 16.8 (16.0-40.0) % Kleberg % (Auto) 3.2 (0.0-15.0) % Eos % (Auto) 1.3 (0.0-7.0) % Baso % (Auto) 0.3 (0.0-1.5) % Neut # (Auto) 8.0 H (1.4-5.7) K/uL Lymph # (Auto) 1.7 (0.6-2.4) K/uL Kleberg # (Auto) 0.3 (0.0-0.8) K/uL Eos # (Auto) 0.1 (0.0-0.7) K/uL Baso # (Auto) 0.0 (0.0-0.1) K/uL Nucleated RBC % 0.0 /100WBC Nucleated RBCs # 0 K/uL VBG pH 7.37 (7.31-7.41) VBG pCO2 40 (35-45) mmHG VBG pO2 33 (30-40) mmHG VBG HCO3 23 (22-30) mEq/L VBG Total CO2 22 L (41-51) mmol/L VBG Base Excess -1.9 (-3.0-3.0) Sodium 142 (136-148) mmol/L Potassium 4.0 (3.5-5.1) mmol/L Chloride 109 H (98-107) mmol/L Carbon Dioxide 22.2 (21.0-32.0) mmol/L BUN 38 H (7.0-18.0) mg/dL Creatinine 1.7 H (0.8-1.3) mg/dL Est Cr Clr Drug Dosing 64.41 mL/min Estimated GFR (MDRD) 56.9 ml/min Glucose 259 H (74-106) mg/dL Hemoglobin A1c (4.5-6.2) % Calcium 9.3 (8.5-10.1) mg/dL Total Bilirubin 0.1 L (0.2-1.0) mg/dL AST 27 (15-37) IU/L ALT 32 (14-63) IU/L Alkaline Phosphatase 142 H (46-116) U/L Total Protein 6.4 (6.4-8.2) g/dL Albumin 2.0 L (3.4-5.0) g/dL Globulin 4.4 H (2.6-4.0) g/dL Albumin/Globulin Ratio 0.5 L (0.9-1.6) Amylase 67 (25-115) U/L Lipase 50 L (73-393) U/L Urine Color Urine Appearance Urine pH (5.0-8.0) Ur Specific [address] (1.001-1.035) Urine Protein (NEGATIVE) mg/dL Urine Glucose (UA) (NEGATIVE) mg/dL Urine Ketones (NEGATIVE) mg/dL Urine Occult Blood (NEGATIVE) Urine Nitrite (NEGATIVE) Urine Bilirubin (NEGATIVE) Urine Urobilinogen (<2.0) EU/dL Ur Leukocyte Esterase (NEGATIVE) Urine RBC (0-2/HPF) Urine WBC (0-5/HPF) Ur Epithelial Cells (NONE-FEW) Ur Renal Epithelial Cell Urine Bacteria (NEGATIVE) Ketones (NEG) H. pylori IgG Antibody (NEG) 10/22/18 10/22/18 10/22/18 Range/Units 21:25 21:25 21:25 WBC (4.0-11.0) K/uL RBC (4.50-5.90) M/uL Hgb (13.0-17.0) g/dL Hct (38.0-50.0) % MCV (80.0-98.0) fL MCH (27.0-32.0) pg MCHC (31.0-37.0) g/dL RDW Std Deviation (28.0-62.0) fl RDW Coeff of Dania (11.0-15.0) % Plt Count (150-400) K/uL MPV (7.40-12.00) fL Neut % (Auto) (48.0-80.0) % Lymph % (Auto) (16.0-40.0) % Kleberg % (Auto) (0.0-15.0) % Eos % (Auto) (0.0-7.0) % Baso % (Auto) (0.0-1.5) % Neut # (Auto) (1.4-5.7) K/uL Lymph # (Auto) (0.6-2.4) K/uL Kleberg # (Auto) (0.0-0.8) K/uL Eos # (Auto) (0.0-0.7) K/uL Baso # (Auto) (0.0-0.1) K/uL Nucleated RBC % /100WBC Nucleated RBCs # K/uL VBG pH (7.31-7.41) VBG pCO2 (35-45) mmHG VBG pO2 (30-40) mmHG VBG HCO3 (22-30) mEq/L VBG Total CO2 (41-51) mmol/L VBG Base Excess (-3.0-3.0) Sodium (136-148) mmol/L Potassium (3.5-5.1) mmol/L Chloride (98-107) mmol/L Carbon Dioxide (21.0-32.0) mmol/L BUN (7.0-18.0) mg/dL Creatinine (0.8-1.3) mg/dL Est Cr Clr Drug Dosing mL/min Estimated GFR (MDRD) ml/min Glucose (74-106) mg/dL Hemoglobin A1c 10.7 H (4.5-6.2) % Calcium (8.5-10.1) mg/dL Total Bilirubin (0.2-1.0) mg/dL AST (15-37) IU/L ALT (14-63) IU/L Alkaline Phosphatase (46-116) U/L Total Protein (6.4-8.2) g/dL Albumin (3.4-5.0) g/dL Globulin (2.6-4.0) g/dL Albumin/Globulin Ratio (0.9-1.6) Amylase (25-115) U/L Lipase (73-393) U/L Urine Color Urine Appearance Urine pH (5.0-8.0) Ur Specific [address] (1.001-1.035) Urine Protein (NEGATIVE) mg/dL Urine Glucose (UA) (NEGATIVE) mg/dL Urine Ketones (NEGATIVE) mg/dL Urine Occult Blood (NEGATIVE) Urine Nitrite (NEGATIVE) Urine Bilirubin (NEGATIVE) Urine Urobilinogen (<2.0) EU/dL Ur Leukocyte Esterase (NEGATIVE) Urine RBC (0-2/HPF) Urine WBC (0-5/HPF) Ur Epithelial Cells (NONE-FEW) Ur Renal Epithelial Cell Urine Bacteria (NEGATIVE) Ketones NEGATIVE (NEG) H. pylori IgG Antibody NEGATIVE (NEG) 10/22/18 Range/Units 23:15 WBC (4.0-11.0) K/uL RBC (4.50-5.90) M/uL Hgb (13.0-17.0) g/dL Hct (38.0-50.0) % MCV (80.0-98.0) fL MCH (27.0-32.0) pg MCHC (31.0-37.0) g/dL RDW Std Deviation (28.0-62.0) fl RDW Coeff of Dania (11.0-15.0) % Plt Count (150-400) K/uL MPV (7.40-12.00) fL Neut % (Auto) (48.0-80.0) % Lymph % (Auto) (16.0-40.0) % Kleberg % (Auto) (0.0-15.0) % Eos % (Auto) (0.0-7.0) % Baso % (Auto) (0.0-1.5) % Neut # (Auto) (1.4-5.7) K/uL Lymph # (Auto) (0.6-2.4) K/uL Kleberg # (Auto) (0.0-0.8) K/uL Eos # (Auto) (0.0-0.7) K/uL Baso # (Auto) (0.0-0.1) K/uL Nucleated RBC % /100WBC Nucleated RBCs # K/uL VBG pH (7.31-7.41) VBG pCO2 (35-45) mmHG VBG pO2 (30-40) mmHG VBG HCO3 (22-30) mEq/L VBG Total CO2 (41-51) mmol/L VBG Base Excess (-3.0-3.0) Sodium (136-148) mmol/L Potassium (3.5-5.1) mmol/L Chloride (98-107) mmol/L Carbon Dioxide (21.0-32.0) mmol/L BUN (7.0-18.0) mg/dL Creatinine (0.8-1.3) mg/dL Est Cr Clr Drug Dosing mL/min Estimated GFR (MDRD) ml/min Glucose (74-106) mg/dL Hemoglobin A1c (4.5-6.2) % Calcium (8.5-10.1) mg/dL Total Bilirubin (0.2-1.0) mg/dL AST (15-37) IU/L ALT (14-63) IU/L Alkaline Phosphatase (46-116) U/L Total Protein (6.4-8.2) g/dL Albumin (3.4-5.0) g/dL Globulin (2.6-4.0) g/dL Albumin/Globulin Ratio (0.9-1.6) Amylase (25-115) U/L Lipase (73-393) U/L Urine Color YELLOW Urine Appearance CLEAR Urine pH 6.0 (5.0-8.0) Ur Specific [address] 1.020 (1.001-1.035) Urine Protein 100 H (NEGATIVE) mg/dL Urine Glucose (UA) >=1000 (NEGATIVE) mg/dL Urine Ketones NEGATIVE (NEGATIVE) mg/dL Urine Occult Blood SMALL H (NEGATIVE) Urine Nitrite NEGATIVE (NEGATIVE) Urine Bilirubin NEGATIVE (NEGATIVE) Urine Urobilinogen 0.2 (<2.0) EU/dL Ur Leukocyte Esterase NEGATIVE (NEGATIVE) Urine RBC 3-6 (0-2/HPF) Urine WBC 0-5 (0-5/HPF) Ur Epithelial Cells OCCASIONAL (NONE-FEW) Ur Renal Epithelial Cell OCCASIONAL Urine Bacteria FEW (NEGATIVE) Ketones (NEG) H. pylori IgG Antibody (NEG) Meds: Medications Generic Name Dose Route Start Last Admin Trade Name Lynn PRN Reason Stop Dose Admin Sodium Chloride 10 ml 10/22/18 21:22 Saline Flush FLUSH ASDIRECTED PRN Keep Vein Open Sodium Chloride 2.5 ml 10/22/18 21:22 Saline Flush FLUSH ASDIRECTED PRN Keep Vein Open Discontinued Medications Generic Name Dose Route Start Last Admin Trade Name Lynn PRN Reason Stop Dose Admin Diphenhydramine HCl 25 mg 10/22/18 21:46 10/22/18 21:51 Benadryl IVPUSH 10/22/18 21:47 25 mg ONETIME ONE Administration Enalaprilat 1.25 mg 10/22/18 22:49 10/22/18 23:15 Vasotec Iv IVPUSH 10/22/18 22:50 1.25 mg ONETIME ONE Administration Hydralazine HCl 10 mg 10/22/18 22:00 10/22/18 22:07 Apresoline IVPUSH 10/22/18 22:01 10 mg ONETIME ONE Administration Sodium Chloride 1,000 mls @ 999 mls/hr 10/22/18 21:22 10/22/18 21:32 Normal Saline IV 10/22/18 22:22 999 mls/hr STAT ONE Administration Sodium Chloride Confirm 10/22/18 21:30 10/22/18 21:54 Normal Saline Administered 10/22/18 21:31 20 mls/hr Dose Administration 20 mls @ as directed .ROUTE .STK-MED ONE Metoclopramide HCl 10 mg 10/22/18 21:46 10/22/18 21:52 Reglan IV 10/22/18 21:47 10 mg ONETIME ONE Administration Ondansetron HCl 4 mg 10/22/18 21:22 10/22/18 21:32 Zofran IVPUSH 10/22/18 21:23 4 mg ONETIME ONE Administration Pantoprazole Sodium 80 mg 10/22/18 21:22 10/22/18 21:33 Protonix Iv IVPUSH 10/22/18 21:23 80 mg .BOLUS ONE Administration Departure - Departure Time of Disposition: 23:34 Disposition: Home, Self-Care 01 Condition: Good Clinical Impression: Vomiting Qualifiers: Vomiting type: unspecified Vomiting Intractability: non-intractable Nausea presence: with nausea Qualified Code(s): R11.2 - Nausea with vomiting, unspecified Hypertension Qualifiers: Hypertension type: essential hypertension Qualified Code(s): I10 - Essential ( primary) hypertension - Discharge Information Forms: ED Department Discharge Additional Instructions: The following information is given to patients seen in the emergency department who are being discharged to home. This information is to outline your options for follow-up care. We provide all patients seen in our emergency department with a follow-up referral. The need for follow-up, as well as the timing and circumstances, are variable depending upon the specifics of your emergency department visit. If you don't have a primary care physician on staff, we will provide you with a referral. We always advise you to contact your personal physician following an emergency department visit to inform them of the circumstance of the visit and for follow-up with them and/or the need for any referrals to a consulting specialist. The emergency department will also refer you to a specialist when appropriate. This referral assures that you have the opportunity for followup care with a specialist. All of these measure are taken in an effort to provide you with optimal care, which includes your followup. Under all circumstances we always encourage you to contact your private physician who remains a resource for coordinating your care. When calling for followup care, please make the office aware that this follow-up is from your recent emergency room visit. If for any reason you are refused follow-up, please contact the [facility] emergency department at and ask to speak to the emergency department charge nurse. [facility] Primary care- Internal Medicine and Family [address] [address] Please take your evening medications for blood pressure as we discussed and continue all home medications. Fill the prescription for Reglan that you have been given through [facility] and take as needed for nausea and vomiting and always take it with a low dose 25 mg of Benadryl that you have also been given via [facility]. These contact and follow up with Dr. Infante next week to discuss her hemoglobin A1c as well as your episodic vomiting. Drink sips of clear fluids and eat bland bites over the next 24-36 hours and return to ER as needed and as discussed. Please monitor your blood sugar closely over the next few days. - My Orders Last 24 Hours: My Active Orders 10/22/18 21:20 Saline Lock Insert [OM.PC] Stat 10/22/18 21:21 Blood Glucose Check, Bedside [RC] ONETIME Cardiac Monitoring [RC] . DIRECTED EKG Documentation Completion [RC] STAT Oxygen Therapy, ED [RC] ASDIRECTED Pulse Oximetry [RC] ASDIRECTED 10/22/18 21:22 Sodium Chloride 0.9% [Saline Flush] 10 ml FLUSH ASDIRECTED PRN Sodium Chloride 0.9% [Saline Flush] 2.5 ml FLUSH ASDIRECTED PRN - Assessment/Plan Last 24 Hours: My Active Orders 10/22/18 21:20 Saline Lock Insert [OM.PC] Stat 10/22/18 21:21 Blood Glucose Check, Bedside [RC] ONETIME Cardiac Monitoring [RC] . DIRECTED EKG Documentation Completion [RC] STAT Oxygen Therapy, ED [RC] ASDIRECTED Pulse Oximetry [RC] ASDIRECTED 10/22/18 21:22 Sodium Chloride 0.9% [Saline Flush] 10 ml FLUSH ASDIRECTED PRN Sodium Chloride 0.9% [Saline Flush] 2.5 ml FLUSH ASDIRECTED PRN
[2018-10-22] MEDS ORDERED: Sodium Chloride 0.9% 20 ML ONE (21:30)
[2018-10-22] MEDS ORDERED: Metoclopramide 10 MG/2 ML SDV IV ONE (21:46)
[2018-10-22] MEDS ORDERED: diphenhydrAMINE 50 MG/ML SDV IVPUSH ONE (21:46)
[2018-10-22 21:51] LABS: HEMOGLOBIN A1C 10.7 % (4.5-6.2)
[2018-10-22] MEDS ORDERED: hydrALAZINE 20 MG/ML SDV IVPUSH ONE (22:00)
[2018-10-22] MEDS ORDERED: Enalaprilat 1.25 MG/ML SDV IVPUSH ONE (22:49)
--- NOTE | 2018-10-22 23:13 | CR ---
INDICATION: Vomiting TECHNIQUE: Chest and Abdominal radiograph 4 views COMPARISON: None FINDINGS: CHEST: Mediastinum: The mediastinum is normal in appearance. The heart silhouette is normal in size and morphology. Lung: Both lungs are unremarkable in appearance. No sign of pleural effusion seen. No pneumothorax is identified. ABDOMEN: Bowel: The bowel gas pattern is normal without evidence of bowel obstruction. Soft tissue: No evidence of pneumoperitoneum present. No suspicious calcifications noted. Bone: Unremarkable for age. IMPRESSION: 1. Unremarkable appearance of the chest and abdomen. Dictated by: Josh Vick MD @ 10/22/2018 23:11:54 (Electronically Signed)
[2018-10-23 00:46] VITALS: BP 180/102
== END 2018-10-23 00:07 | disposition home or self-care (01) ==
LOC: MW.ED 21:16
DX: I12.9 Hypertensive chronic kidney disease with stage 1 through stage 4 chronic kidney disease, or unspecified chronic kidney disease (principal); N18.9 Chronic kidney disease, unspecified; R11.2 Nausea with vomiting, unspecified; E10.22 Type 1 diabetes mellitus with diabetic chronic kidney disease; E10.21 Type 1 diabetes mellitus with diabetic nephropathy; Z88.0 Allergy status to penicillin; Z91.013 Allergy to seafood; Z79.899 Other long term (current) drug therapy
CPT/HCPCS: 36415; 74022; 80053; 81001; 82009; 82150; 82803; 83036; 83690; 85025; 86677; 93005; 96361; 96374; 96375; 99285; C9113; J0360; J1200; J2405; J2765; J7040

== ENCOUNTER 2018-12-14 01:45 | Observation (INO) | payer MEDICAID, OTHER ==
[2018-12-14] MEDS ORDERED: Sodium Chloride 0.9% 2.5 ML Syringe FLUSH PRN ×2 (02:02→04:08)
[2018-12-14] MEDS ORDERED: Sodium Chloride 0.9% 10 ML Syringe FLUSH PRN ×2 (02:02→04:08)
[2018-12-14] MEDS ORDERED: Sodium Chloride 0.9% 1,000 ML IV ONE (02:02)
--- NOTE | 2018-12-14 02:10 | EDM.PDOC ---
ED HPI GENERAL MEDICAL PROBLEM - General Chief Complaint: General Stated Complaint: DIABETIC COMPLICATIONS Time Seen by Provider: 12/14/18 01:46 - History of Present Illness INITIAL COMMENTS - FREE TEXT/NARRATIVE: HISTORY AND PHYSICAL: History of present illness: The patient is a 33-year-old male with a history of hypertension on multiple medications iron deficiency anemia type 1 diabetes and a history of noncompliance who presents via EMS after an episode where he thought he might pass out and felt like he was having trouble speaking and had generalized weakness along with tingling and numbness in his right arm. I saw this patient with October for vomiting and poorly controlled hypertension as he was unable to take his medications and he was treated appropriately and followed up in the clinic with his provider Dr. Infante. The patient was seen on November 18 and had repeat labs which showed a rising BUN and creatinine but his blood pressure was at his baseline and his medications were not changed but he was scheduled to see a oriental medicine practitioner for this rising creatinine level. The patient says he has been doing well and has been compliant with his meds and his blood sugar runs around 160 and this is what it was when he checked it before he ate this evening. He ate a meal and then soon thereafter said that he started feeling funny lightheaded and felt like he had generalized weakness and having difficulty speaking. The patient sat down as he thought he might pass out but he did not pass out at that time and he had no pain at that time such as chest pain shortness of breath or abdominal pain. The patient then started having some shortness of breath as well as tingling in his right arm and just had generalized weakness. He said he felt so weak that he thought he might pass out so he eased himself to the ground and did have a brief loss of consciousness. The patient did not have a head ache and has no head neck or back pain and he did not actually fall. The patient said that after he ate and as the symptoms were starting he detected his blood sugar and it was 300 which is unusually high for him. He said that he has been sleeping more during the day and more wakeful in the evening and in fact only woke up at 2:30 PM yesterday and has been awake ever since. This is not unusual for him. Currently in the ED the patient's symptoms have all resolved and he does not have any speech issues he doesn't feel confused she doesn't feel like he is going to pass out or blackout and he has no tingling or numbness in his right upper extremity. He says he still feels some generalized weakness. He has no headache or chest pain. The patient says that his blood pressure medications have not been changed by Dr. Infante and his systolic blood pressure he thinks runs around 140 in the clinic. He is currently on Doxazosin,hydrochlorothiazide hydralazine torsemide amlodipine and enalapril and Spironolactone. 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 The patient's last hemoglobin A1c was done by me here in the ED on October 22 and it was 10.7. His labs performed in the clinic on November 18 were also reviewed by me and are listed below. His repeat hemoglobin A1c on that clinic visit was 11.5 Accu-Chek per EMS was 381 Review of systems: As per history of present illness and below otherwise all systems reviewed and negative. Past medical history: As per history of present illness and as reviewed below otherwise noncontributory. Surgical history: As per history of present illness and as reviewed below otherwise noncontributory. Social history: No reported history of drug or alcohol abuse. Family history: As per history of present illness and as reviewed below otherwise noncontributory. 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 There is no cervical adenopathy or nuchal rigidity and no thyromegaly Lungs: Clear to auscultation, breath sounds equal bilaterally, chest nontender. Heart: S1S2, regular, negative for clicks, rubs, or JVD. Abdomen: Soft, nondistended, nontender. Negative for masses or hepatosplenomegaly. NABS Pelvis: Stable nontender. Genitourinary: Deferred. Rectal: Deferred. Extremities: Atraumatic, negative for cords or calf pain. Neurovascular unremarkable. The patient has a right BKA. Neuro: Awake, alert, oriented. Cranial nerves II through XII unremarkable. Cerebellum unremarkable. Motor is slightly diminished 4/5 throughout all extremities and sensory unremarkable throughout. Exam nonfocal. Patient's speech is intact without any slurring and he is cooperative coherent and interactive. There are no focal deficits appreciated. Tone is normal and there is no evidence of any drift Diagnostics: Accu-Chek EKG CBC CMP troponin INR TSH UA hemoglobin A1c serum ketones CT scan of the head chest x-ray Accu-Chek per EMS was 381 Therapeutics: IV O2 monitor IV fluids The patient's renal function was reviewed in the computer. On September 23 his BUN and creatinine was 30/2.0, on October 22 it was 38/1.7 and on his repeat clinic visit on November 18 it was 53/2.7. That jump on November [address] Infante to arrange nephrology follow-up and the patient says he is scheduled to see Dr. Hendrickson here but he is unsure when that appointment is. Patient is stable here in the ED and has no recurrence of any symptomatology and he is moving about the ED ambulating without assistance and having no evidence of any deficits or neurologic changes. In light of his multiple medications for hypertension and elevated blood pressure and the sudden change in his blood sugar that he cannot explain and his near syncopal/syncopal event which he described to me, but did not discuss with nursing and triage evaluation , I recommended observation admission and he is agreeable. He says that he has had issues with blood pressure management and has diabetes in the past and he has never had an event similar to what he had this evening and he is very concerned. I discussed admission with him and he is agreeable as he has great concerns about tonight's events. His repeat blood pressure is 166/108 and at this point as he does not know where his norm is and he is on multiple medications I will not acutely change that. His repeat blood sugar was 226 and initially was going to give him some insulin for his 320 but I will hold that at this time. I discussed this case with Dr. Jeffery at 3:15 AM and he is agreeable for admission Impression: near syncope/syncope, associated with difficulty speaking and right arm paresthesia all symptoms resolved, rule out TIA; hyperglycemia with history of type 1 diabetes, rising hemoglobin A1c; renal insufficiency stable Definitive disposition and diagnosis as appropriate pending reevaluation and review of above. - Related Data Allergies Allergy/AdvReac Type Severity Reaction Status Date / Time shrimp Allergy Severe Other Verified 12/14/18 01:48 iodine Allergy Unknown Anaphylactic Verified 12/14/18 01:48 Shock Penicillins Allergy Unknown Anaphylactic Verified 12/14/18 01:48 Shock shellfish derived Allergy Anaphylactic Verified 12/14/18 01:48 Shock gluten Allergy Unknown Muscle Uncoded 12/14/18 01:48 Aches Home Meds: Home Meds Omeprazole Magnesium [Prilosec Otc] 40 mg PO DAILY 07/15/17 [History] Doxazosin [Cardura] 2 mg PO BEDTIME 09/25/17 [History] Enalapril [Vasotec] 40 mg PO BEDTIME 09/25/17 [History] Torsemide 20 mg PO DAILY 09/25/17 [History] amLODIPine Besylate [Amlodipine Besylate] 10 mg PO BEDTIME 09/25/17 [History] Ferrous Sulfate 324 mg PO DAILY 01/20/18 [History] hydrALAZINE [Apresoline] 25 mg PO TID 30 Days #90 tablet 01/29/18 [Rx] Insulin Glarg,Human.Rec.Analog [Lantus Solostar] 50 units SUBCUT BEDTIME [History] Insulin Aspart [NovoLOG] 0 unit SUBCUT ASDIRECTED PRN 05/23/18 [History] Past Medical History - Past Health History Medical/Surgical History: Denies Medical/Surgical History HEENT History: Reports: Impaired Vision Other HEENT History: blind right eye Cardiovascular History: Reports: Hypertension Respiratory History: Reports: None Gastrointestinal History: Reports: Gastritis, GERD, Hiatal Hernia Other Gastrointestinal History: h/o gastric ulcers, h/o hiatal hernia Genitourinary History: Reports: Chronic Renal Insuffiency, Diabetic Nephropathy Musculoskeletal History: Reports: Amputation Neurological History: Reports: Neuropathy, Peripheral Psychiatric History: Reports: Anxiety Endocrine/Metabolic History: Reports: Diabetes, Type I Other Endocrine/Metabolic History: brittle diabetic. 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 - Past Surgical History Head Surgeries/Procedures: Reports: None HEENT Surgical History: Reports: None Cardiovascular Surgical History: Reports: None Respiratory Surgical History: Reports: None GI Surgical History: Reports: EGD Male Surgical History: Reports: None Endocrine Surgical History: Reports: None Neurological Surgical History: Reports: None Musculoskeletal Surgical History: Reports: Other (See Below) Other Musculoskeletal Surgeries/Procedures:: previous partial amputaton 5th toe rt foot Dermatological Surgical History: Reports: None Social & Family History - Family History Family Medical History: Noncontributory Cardiac: Reports: High Cholesterol, Hypertension OBGYN: Reports: Neurological: Reports: None - Tobacco Use Smoking Status *Q: Never Smoker Second Hand Smoke Exposure: No - Caffeine Use Caffeine Use: Reports: Soda - Recreational Drug Use Recreational Drug Use: No - Living Situation & Occupation Living situation: Reports: Single Occupation: Employed (Currently unemployed.) ED ROS GENERAL - Review of Systems Review Of Systems: ROS reveals no pertinent complaints other than HPI. ED EXAM, GENERAL - Physical Exam Exam: See Below (See dictation) Course - Vital Signs Last Recorded V/S: Last Vital Signs Temp 36.4 C 12/14/18 01:48 Pulse 94 12/14/18 01:48 Resp 16 12/14/18 01:48 BP 164/108 H 12/14/18 01:48 Pulse Ox 98 12/14/18 02:00 - Orders/Labs/Meds Orders: Active Orders 24 hr Category Date Time Status Blood Glucose Check, Bedside [RC] ONETIME Care 12/14/18 02:01 Active Cardiac Monitoring [RC] . DIRECTED Care 12/14/18 02:00 Active EKG Documentation Completion [RC] STAT Care 12/14/18 02:00 Active Oxygen Therapy, ED [RC] ASDIRECTED Care 12/14/18 02:00 Active Pulse Oximetry [RC] ASDIRECTED Care 12/14/18 02:00 Active UA RFX FRANTZ AND CULT IF INDIC [URIN] Stat Lab 12/14/18 02:01 Ordered Sodium Chloride 0.9% [Saline Flush] Med 12/14/18 02:02 Active 10 ml FLUSH ASDIRECTED PRN Sodium Chloride 0.9% [Saline Flush] Med 12/14/18 02:02 Active 2.5 ml FLUSH ASDIRECTED PRN Saline Lock Insert [OM.PC] Stat Oth 12/14/18 02:00 Ordered Medication Orders Sodium Chloride (Saline Flush) 10 ml FLUSH ASDIRECTED PRN PRN Reason: Keep Vein Open Sodium Chloride (Saline Flush) 2.5 ml FLUSH ASDIRECTED PRN PRN Reason: Keep Vein Open Labs: Laboratory Tests 12/14/18 12/14/18 12/14/18 Range/Units 01:53 01:53 01:53 WBC 5.92 (4.0-11.0) K/uL RBC 5.06 (4.50-5.90) M/uL Hgb 10.7 L (13.0-17.0) g/dL Hct 33.6 L (38.0-50.0) % MCV 66.4 L (80.0-98.0) fL MCH 21.1 L (27.0-32.0) pg MCHC 31.8 (31.0-37.0) g/dL RDW Std Deviation 37.7 (28.0-62.0) fl RDW Coeff of Dania 16 H (11.0-15.0) % Plt Count 284 (150-400) K/uL MPV 10.50 (7.40-12.00) fL Neut % (Auto) 57.4 (48.0-80.0) % Lymph % (Auto) 33.8 (16.0-40.0) % Mcdowell % (Auto) 5.1 (0.0-15.0) % Eos % (Auto) 3.2 (0.0-7.0) % Baso % (Auto) 0.5 (0.0-1.5) % Neut # (Auto) 3.4 (1.4-5.7) K/uL Lymph # (Auto) 2.0 (0.6-2.4) K/uL Mcdowell # (Auto) 0.3 (0.0-0.8) K/uL Eos # (Auto) 0.2 (0.0-0.7) K/uL Baso # (Auto) 0.0 (0.0-0.1) K/uL Nucleated RBC % 0.0 /100WBC Nucleated RBCs # 0 K/uL INR 0.90 Sodium 140 (136-148) mmol/L Potassium 3.9 (3.5-5.1) mmol/L Chloride 104 (98-107) mmol/L Carbon Dioxide 28.2 (21.0-32.0) mmol/L BUN 22 H (7.0-18.0) mg/dL Creatinine 2.5 H (0.8-1.3) mg/dL Est Cr Clr Drug Dosing TNP Estimated GFR (MDRD) 36.5 ml/min Glucose 339 H (74-106) mg/dL POC Glucose (60-110) mg/dL Hemoglobin A1c (4.5-6.2) % Calcium 8.5 (8.5-10.1) mg/dL Total Bilirubin 0.1 L (0.2-1.0) mg/dL AST 18 (15-37) IU/L ALT 21 (14-63) IU/L Alkaline Phosphatase 111 (46-116) U/L Troponin I < 0.050 (0.000-0.056) ng/mL Total Protein 6.4 (6.4-8.2) g/dL Albumin 2.3 L (3.4-5.0) g/dL Globulin 4.1 H (2.6-4.0) g/dL Albumin/Globulin Ratio 0.6 L (0.9-1.6) TSH 3rd Generation 0.96 (0.36-3.74) uIU/mL Ketones (NEG) 12/14/18 12/14/18 12/14/18 Range/Units 01:53 01:53 02:03 WBC (4.0-11.0) K/uL RBC (4.50-5.90) M/uL Hgb (13.0-17.0) g/dL Hct (38.0-50.0) % MCV (80.0-98.0) fL MCH (27.0-32.0) pg MCHC (31.0-37.0) g/dL RDW Std Deviation (28.0-62.0) fl RDW Coeff of Dania (11.0-15.0) % Plt Count (150-400) K/uL MPV (7.40-12.00) fL Neut % (Auto) (48.0-80.0) % Lymph % (Auto) (16.0-40.0) % Mcdowell % (Auto) (0.0-15.0) % Eos % (Auto) (0.0-7.0) % Baso % (Auto) (0.0-1.5) % Neut # (Auto) (1.4-5.7) K/uL Lymph # (Auto) (0.6-2.4) K/uL Mcdowell # (Auto) (0.0-0.8) K/uL Eos # (Auto) (0.0-0.7) K/uL Baso # (Auto) (0.0-0.1) K/uL Nucleated RBC % /100WBC Nucleated RBCs # K/uL INR Sodium (136-148) mmol/L Potassium (3.5-5.1) mmol/L Chloride (98-107) mmol/L Carbon Dioxide (21.0-32.0) mmol/L BUN (7.0-18.0) mg/dL Creatinine (0.8-1.3) mg/dL Est Cr Clr Drug Dosing Estimated GFR (MDRD) ml/min Glucose (74-106) mg/dL POC Glucose 320 H (60-110) mg/dL Hemoglobin A1c 11.2 H (4.5-6.2) % Calcium (8.5-10.1) mg/dL Total Bilirubin (0.2-1.0) mg/dL AST (15-37) IU/L ALT (14-63) IU/L Alkaline Phosphatase (46-116) U/L Troponin I (0.000-0.056) ng/mL Total Protein (6.4-8.2) g/dL Albumin (3.4-5.0) g/dL Globulin (2.6-4.0) g/dL Albumin/Globulin Ratio (0.9-1.6) TSH 3rd Generation (0.36-3.74) uIU/mL Ketones NEGATIVE (NEG) Meds: Medications Generic Name Dose Route Start Last Admin Trade Name Freq PRN Reason Stop Dose Admin Sodium Chloride 10 ml 12/14/18 02:02 Saline Flush FLUSH ASDIRECTED PRN Keep Vein Open Sodium Chloride 2.5 ml 12/14/18 02:02 Saline Flush FLUSH ASDIRECTED PRN Keep Vein Open Discontinued Medications Generic Name Dose Route Start Last Admin Trade Name Lynn PRN Reason Stop Dose Admin Sodium Chloride 1,000 mls @ 999 mls/hr 12/14/18 02:02 12/14/18 02:10 Normal Saline IV 12/14/18 03:02 999 mls/hr STAT ONE Administration Insulin Human Regular 12 unit 12/14/18 03:03 Novolin R SUBCUT 12/14/18 03:04 ONETIME ONE Protocol Departure - Departure Time of Disposition: 03:16 Disposition: Refer to Observation Condition: Good Clinical Impression: Hyperglycemia Syncope Qualifiers: Syncope type: unspecified Qualified Code(s): R55 - Syncope and collapse - Discharge Information Referrals: PCP,None [Primary Care Provider] - Forms: ED Department Discharge - My Orders Last 24 Hours: My Active Orders 12/14/18 02:00 Cardiac Monitoring [RC] . DIRECTED EKG Documentation Completion [RC] STAT Oxygen Therapy, ED [RC] ASDIRECTED Pulse Oximetry [RC] ASDIRECTED Saline Lock Insert [OM.PC] Stat 12/14/18 02:01 Blood Glucose Check, Bedside [RC] ONETIME UA RFX FRANTZ AND CULT IF INDIC [URIN] Stat 12/14/18 02:02 Sodium Chloride 0.9% [Saline Flush] 10 ml FLUSH ASDIRECTED PRN Sodium Chloride 0.9% [Saline Flush] 2.5 ml FLUSH ASDIRECTED PRN - Assessment/Plan Last 24 Hours: My Active Orders 12/14/18 02:00 Cardiac Monitoring [RC] . DIRECTED EKG Documentation Completion [RC] STAT Oxygen Therapy, ED [RC] ASDIRECTED Pulse Oximetry [RC] ASDIRECTED Saline Lock Insert [OM.PC] Stat 12/14/18 02:01 Blood Glucose Check, Bedside [RC] ONETIME UA RFX FRANTZ AND CULT IF INDIC [URIN] Stat 12/14/18 02:02 Sodium Chloride 0.9% [Saline Flush] 10 ml FLUSH ASDIRECTED PRN Sodium Chloride 0.9% [Saline Flush] 2.5 ml FLUSH ASDIRECTED PRN
[2018-12-14 02:18] LABS: HEMOGLOBIN A1C 11.2 % (4.5-6.2)
[2018-12-14 02:28] LABS: CHLORIDE,CL 104 mmol/L (98-107); SODIUM,NA 140 mmol/L (136-148)
--- NOTE | 2018-12-14 02:50 | CR ---
INDICATION: pain TECHNIQUE: Chest 1 view. COMPARISON: None. FINDINGS: Cardiovascular and mediastinum: Heart size and vasculature are normal in caliber and appearance. Mediastinum is within normal limits. Lungs and pleural space: Lungs are clear. No sign of infiltrate or mass. No sign of pleural effusion. No pneumothorax. Bones and soft tissues: No significant findings. IMPRESSION: Unremarkable chest. Dictated by: Pete Joyner MD @ 12/14/2018 02:49:21 (Electronically Signed)
--- NOTE | 2018-12-14 03:01 | CT ---
INDICATION: Headache TECHNIQUE: CT head without contrast. COMPARISON: None FINDINGS: CSF spaces: Within normal limits for age. Brain parenchyma: The hernandez-white differentiation is normal. No sign of mass, hemorrhage, or midline shift. Skull base and calvarium: The visualized paranasal sinuses and mastoid air cells demonstrate no acute or significant findings. The visualized orbits are grossly unremarkable. No skull fractures. IMPRESSION: Unremarkable noncontrast head CT. Dictated by Pete Jyoner MD @ 12/14/2018 2:59:16 AM Please note that all CT scans at this facility use dose modulation, iterative reconstruction, and/or weight-based dosing when appropriate to reduce radiation dose to as low as reasonably achievable. Dictated by: Pete Joyner MD @ 12/14/2018 02:59:22 (Electronically Signed)
[2018-12-14] MEDS ORDERED: Insulin Regular, Human 100 Units/ML 10 ML Vial SUBCUT ONE (03:03)
[2018-12-14] MEDS: Insulin Aspart 100 Units/ML 3 ML Pen SUBCUT SCH ×5 (06:56→18:34)
[2018-12-14] MEDS ORDERED: Acetaminophen 325 MG Tab PO PRN (08:08)
[2018-12-14] MEDS ORDERED: Ondansetron 4 MG/2 ML SDV IVPUSH PRN (08:08)
[2018-12-14] MEDS: Omeprazole 20 MG Cap.CR PO SCH (09:23)
[2018-12-14] MEDS: Ferrous Sulfate 325 MG Tab PO SCH (09:23)
[2018-12-14] MEDS: Metoclopramide 10 MG Tab PO SCH (09:23)
--- NOTE | 2018-12-14 10:58 | PCM.HP ---
H&P History of Present Illness - General Date of Service: 12/14/18 Admit Problem/Dx: Admission Diagnosis/Problem Admission Diagnosis/Problem Syncope Source of Information: Patient History Limitations: Reports: No Limitations - History of Present Illness Initial Comments - Free Text/Narative: This 33 year old male with pmh of DM type 1, CKD, HTN, and recurrent DM foot ulcer with recent R BKA presented to the ED last night via EMS with complaints of passing out, slurred speech and numbness to R distal arm. He reports he was sitting at his table last night, 0130 am and talking with his roommate. He started feeling funny and went back to his bedroom. He reports having slurred speech in which his room mate also noticed. He reports he went out to the couch and awkwardly tripped with his crutches and slid down off the couch and passed out. He reports eating just prior to this and noted BS was in the 200s. He reported some blurred vision during this time as well. No chest pain or SOB. No abdominal pain. No recent fevers or URI. He denies black or blood BMs. He reports he otherwise was feeling really good recently until this event. By the time he arrived to the ED, all symptoms had resolved and have not re-occurred. He reports quitting smoking in 2016, no chewing tobacco, no alcohol and no recreational drug use. In the ED CBC WNL, Hgb 10.7, hx of anemia of chronic disease, BUN 22, Cr 2.5, BS 220-340, Troponin negative. headt CT negative, CXR negative. A1c 11.2. BP 160 -190/90-110. Admission was recommended for syncope, rule out TIA. PCP, Dr Infante. - Related Data Allergies/Adverse Reactions: Allergies Allergy/AdvReac Type Severity Reaction Status Date / Time shrimp Allergy Severe Other Verified 12/14/18 01:48 iodine Allergy Unknown Anaphylactic Verified 12/14/18 01:48 Shock Penicillins Allergy Unknown Anaphylactic Verified 12/14/18 01:48 Shock shellfish derived Allergy Anaphylactic Verified 12/14/18 01:48 Shock gluten Allergy Unknown Muscle Uncoded 12/14/18 01:48 Aches Home Medications: Home Meds Omeprazole Magnesium [Prilosec Otc] 40 mg PO DAILY 07/15/17 [History] Doxazosin [Cardura] 2 mg PO BEDTIME 09/25/17 [History] Enalapril [Vasotec] 40 mg PO BEDTIME 09/25/17 [History] Torsemide 20 mg PO DAILY 09/25/17 [History] amLODIPine Besylate [Amlodipine Besylate] 10 mg PO BEDTIME 09/25/17 [History] Ferrous Sulfate 324 mg PO DAILY 01/20/18 [History] hydrALAZINE [Apresoline] 25 mg PO TID 30 Days #90 tablet 01/29/18 [Rx] Insulin Glarg,Human.Rec.Analog [Lantus Solostar] 50 units SUBCUT BEDTIME [History] Insulin Aspart [NovoLOG] 0 unit SUBCUT ASDIRECTED PRN 05/23/18 [History] Metoclopramide HCl 10 mg PO DAILY 12/14/18 [History] Spironolactone [Aldactone] 25 mg PO DAILY 12/14/18 [History] hydroCHLOROthiazide [Hydrochlorothiazide] 25 mg PO DAILY 12/14/18 [History] Past Medical History - Past Health History Medical/Surgical History: Denies Medical/Surgical History HEENT History: Reports: Impaired Vision Other HEENT History: blind right eye Cardiovascular History: Reports: Hypertension Respiratory History: Reports: None Gastrointestinal History: Reports: Gastritis, GERD, Hiatal Hernia Other Gastrointestinal History: h/o gastric ulcers, h/o hiatal hernia Genitourinary History: Reports: Chronic Renal Insuffiency, Diabetic Nephropathy Musculoskeletal History: Reports: Amputation Neurological History: Reports: Neuropathy, Peripheral Psychiatric History: Reports: Anxiety Endocrine/Metabolic History: Reports: Diabetes, Type I Other Endocrine/Metabolic History: brittle diabetic. 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 - Past Surgical History Head Surgeries/Procedures: Reports: None HEENT Surgical History: Reports: None Cardiovascular Surgical History: Reports: None Respiratory Surgical History: Reports: None GI Surgical History: Reports: EGD Male Surgical History: Reports: None Endocrine Surgical History: Reports: None Neurological Surgical History: Reports: None Musculoskeletal Surgical History: Reports: Amputation, Other (See Below) Other Musculoskeletal Surgeries/Procedures:: previous partial amputaton 5th toe rt foot Oncologic Surgical History: Reports: None Dermatological Surgical History: Reports: None Social & Family History - Family History Family Medical History: Noncontributory Cardiac: Reports: High Cholesterol, Hypertension OBGYN: Reports: Neurological: Reports: None - Tobacco Use Smoking Status *Q: Never Smoker Second Hand Smoke Exposure: No - Caffeine Use Caffeine Use: Reports: Coffee - Recreational Drug Use Recreational Drug Use: No - Living Situation & Occupation Living situation: Reports: Single Occupation: Employed (Currently unemployed.) H&P Review of Systems - Review of Systems: Review Of Systems: See Below General: Reports: No Symptoms. Denies: Fever, Chills, Malaise, Weakness, Fatigue HEENT: Reports: No Symptoms. Denies: Headaches, Sinus Congestion, Sore Throat, Vertigo, Visual Changes Pulmonary: Reports: No Symptoms. Denies: Shortness of Breath, Wheezing, Cough Cardiovascular: Reports: Syncope (as described in HPI). Denies: Chest Pain, Palpitations, Edema, Lightheadedness Gastrointestinal: Reports: No Symptoms. Denies: Abdominal Pain, Black Stool, Bloody Stool, Decreased Appetite, Nausea, Vomiting Genitourinary: Reports: No Symptoms. Denies: Dysuria, Frequency, Burning Musculoskeletal: Reports: No Symptoms Skin: Reports: No Symptoms. Denies: Wound Psychiatric: Reports: No Symptoms Neurological: Reports: Trouble Speaking (per HPI) Hematologic/Lymphatic: Reports: No Symptoms Immunologic: Reports: No Symptoms Exam - Exam Exam: See Below - Vital Signs Vital Signs: Last Vital Signs Temp 98.7 F 12/14/18 08:08 Pulse 97 12/14/18 08:08 Resp 18 12/14/18 08:08 BP 177/108 H 12/14/18 08:08 Pulse Ox 99 12/14/18 03:30 Weight: 76.612 kg - Exam General: Alert, Oriented, Cooperative HEENT: Conjunctiva Clear, Mucosa Moist & [place], Pupils Equal Neck: Supple, Trachea Midline Lungs: Clear to Auscultation, Normal Respiratory Effort Cardiovascular: Regular Rate, Regular Rhythm GI/Abdominal Exam: Normal Bowel Sounds, Soft, Non-Tender, No Organomegaly Back Exam: Normal Inspection, Full Range of Motion Extremities: Normal Inspection, Normal Range of Motion, No Pedal Edema, Other ( R BKA, completely healed.) Neuro Extensive - Mental Status: Alert, Oriented x3, Normal Cognition Neuro Extensive - Motor, Sensory, Reflexes: CN II-XII Intact, Normal Gait, Normal Reflexes. No: Facial palsy (L), Facial Palsy (R), Pronator Drift (R), Pronator Drift (L) Psychiatric: Alert, Normal Affect, Normal Mood - Patient Data Lab Results Last 24 hrs: Laboratory Results - last 24 hr 12/14/18 12/14/18 12/14/18 Range/Units 01:53 01:53 01:53 WBC 5.92 (4.0-11.0) K/uL RBC 5.06 (4.50-5.90) M/uL Hgb 10.7 L (13.0-17.0) g/dL Hct 33.6 L (38.0-50.0) % MCV 66.4 L (80.0-98.0) fL MCH 21.1 L (27.0-32.0) pg MCHC 31.8 (31.0-37.0) g/dL RDW Std Deviation 37.7 (28.0-62.0) fl RDW Coeff of Dania 16 H (11.0-15.0) % Plt Count 284 (150-400) K/uL MPV 10.50 (7.40-12.00) fL Neut % (Auto) 57.4 (48.0-80.0) % Lymph % (Auto) 33.8 (16.0-40.0) % Hinds % (Auto) 5.1 (0.0-15.0) % Eos % (Auto) 3.2 (0.0-7.0) % Baso % (Auto) 0.5 (0.0-1.5) % Neut # (Auto) 3.4 (1.4-5.7) K/uL Lymph # (Auto) 2.0 (0.6-2.4) K/uL Hinds # (Auto) 0.3 (0.0-0.8) K/uL Eos # (Auto) 0.2 (0.0-0.7) K/uL Baso # (Auto) 0.0 (0.0-0.1) K/uL Nucleated RBC % 0.0 /100WBC Nucleated RBCs # 0 K/uL INR 0.90 Sodium 140 (136-148) mmol/L Potassium 3.9 (3.5-5.1) mmol/L Chloride 104 (98-107) mmol/L Carbon Dioxide 28.2 (21.0-32.0) mmol/L BUN 22 H (7.0-18.0) mg/dL Creatinine 2.5 H (0.8-1.3) mg/dL Est Cr Clr Drug Dosing TNP Estimated GFR (MDRD) 36.5 ml/min Glucose 339 H (74-106) mg/dL POC Glucose (60-110) mg/dL Hemoglobin A1c (4.5-6.2) % Calcium 8.5 (8.5-10.1) mg/dL Total Bilirubin 0.1 L (0.2-1.0) mg/dL AST 18 (15-37) IU/L ALT 21 (14-63) IU/L Alkaline Phosphatase 111 (46-116) U/L Troponin I < 0.050 (0.000-0.056) ng/mL Total Protein 6.4 (6.4-8.2) g/dL Albumin 2.3 L (3.4-5.0) g/dL Globulin 4.1 H (2.6-4.0) g/dL Albumin/Globulin Ratio 0.6 L (0.9-1.6) Triglycerides (0-200) mg/dL Cholesterol (50-200) mg/dL LDL Cholesterol, Calc (60-180) mg/dL VLDL Cholesterol (5-55) mg/dL HDL Cholesterol (40-60) mg/dL Cholesterol/HDL Ratio (3.3-6.0) TSH 3rd Generation 0.96 (0.36-3.74) uIU/mL Urine Color Urine Appearance Urine pH (5.0-8.0) Ur Specific [place] (1.001-1.035) Urine Protein (NEGATIVE) mg/dL Urine Glucose (UA) (NEGATIVE) mg/dL Urine Ketones (NEGATIVE) mg/dL Urine Occult Blood (NEGATIVE) Urine Nitrite (NEGATIVE) Urine Bilirubin (NEGATIVE) Urine Urobilinogen (<2.0) EU/dL Ur Leukocyte Esterase (NEGATIVE) Urine RBC (0-2/HPF) Urine WBC (0-5/HPF) Ur Epithelial Cells (NONE-FEW) Urine Bacteria (NEGATIVE) Fine Granular Casts (NEGATIVE) Ketones (NEG) 12/14/18 12/14/18 12/14/18 Range/Units 01:53 01:53 01:53 WBC (4.0-11.0) K/uL RBC (4.50-5.90) M/uL Hgb (13.0-17.0) g/dL Hct (38.0-50.0) % MCV (80.0-98.0) fL MCH (27.0-32.0) pg MCHC (31.0-37.0) g/dL RDW Std Deviation (28.0-62.0) fl RDW Coeff of Dania (11.0-15.0) % Plt Count (150-400) K/uL MPV (7.40-12.00) fL Neut % (Auto) (48.0-80.0) % Lymph % (Auto) (16.0-40.0) % Hinds % (Auto) (0.0-15.0) % Eos % (Auto) (0.0-7.0) % Baso % (Auto) (0.0-1.5) % Neut # (Auto) (1.4-5.7) K/uL Lymph # (Auto) (0.6-2.4) K/uL Hinds # (Auto) (0.0-0.8) K/uL Eos # (Auto) (0.0-0.7) K/uL Baso # (Auto) (0.0-0.1) K/uL Nucleated RBC % /100WBC Nucleated RBCs # K/uL INR Sodium (136-148) mmol/L Potassium (3.5-5.1) mmol/L Chloride (98-107) mmol/L Carbon Dioxide (21.0-32.0) mmol/L BUN (7.0-18.0) mg/dL Creatinine (0.8-1.3) mg/dL Est Cr Clr Drug Dosing Estimated GFR (MDRD) ml/min Glucose (74-106) mg/dL POC Glucose (60-110) mg/dL Hemoglobin A1c 11.2 H (4.5-6.2) % Calcium (8.5-10.1) mg/dL Total Bilirubin (0.2-1.0) mg/dL AST (15-37) IU/L ALT (14-63) IU/L Alkaline Phosphatase (46-116) U/L Troponin I (0.000-0.056) ng/mL Total Protein (6.4-8.2) g/dL Albumin (3.4-5.0) g/dL Globulin (2.6-4.0) g/dL Albumin/Globulin Ratio (0.9-1.6) Triglycerides 206 H (0-200) mg/dL Cholesterol 277 H (50-200) mg/dL LDL Cholesterol, Calc 180 (60-180) mg/dL VLDL Cholesterol 41 (5-55) mg/dL HDL Cholesterol 56 (40-60) mg/dL Cholesterol/HDL Ratio 4.9 (3.3-6.0) TSH 3rd Generation (0.36-3.74) uIU/mL Urine Color Urine Appearance Urine pH (5.0-8.0) Ur Specific [place] (1.001-1.035) Urine Protein (NEGATIVE) mg/dL Urine Glucose (UA) (NEGATIVE) mg/dL Urine Ketones (NEGATIVE) mg/dL Urine Occult Blood (NEGATIVE) Urine Nitrite (NEGATIVE) Urine Bilirubin (NEGATIVE) Urine Urobilinogen (<2.0) EU/dL Ur Leukocyte Esterase (NEGATIVE) Urine RBC (0-2/HPF) Urine WBC (0-5/HPF) Ur Epithelial Cells (NONE-FEW) Urine Bacteria (NEGATIVE) Fine Granular Casts (NEGATIVE) Ketones NEGATIVE (NEG) 12/14/18 12/14/18 12/14/18 Range/Units 02:03 03:15 06:52 WBC (4.0-11.0) K/uL RBC (4.50-5.90) M/uL Hgb (13.0-17.0) g/dL Hct (38.0-50.0) % MCV (80.0-98.0) fL MCH (27.0-32.0) pg MCHC (31.0-37.0) g/dL RDW Std Deviation (28.0-62.0) fl RDW Coeff of Dania (11.0-15.0) % Plt Count (150-400) K/uL MPV (7.40-12.00) fL Neut % (Auto) (48.0-80.0) % Lymph % (Auto) (16.0-40.0) % Hinds % (Auto) (0.0-15.0) % Eos % (Auto) (0.0-7.0) % Baso % (Auto) (0.0-1.5) % Neut # (Auto) (1.4-5.7) K/uL Lymph # (Auto) (0.6-2.4) K/uL Hind[place] # (Auto) (0.0-0.8) K/uL Eos # (Auto) (0.0-0.7) K/uL Baso # (Auto) (0.0-0.1) K/uL Nucleated RBC % /100WBC Nucleated RBCs # K/uL INR Sodium (136-148) mmol/L Potassium (3.5-5.1) mmol/L Chloride (98-107) mmol/L Carbon Dioxide (21.0-32.0) mmol/L BUN (7.0-18.0) mg/dL Creatinine (0.8-1.3) mg/dL Est Cr Clr Drug Dosing Estimated GFR (MDRD) ml/min Glucose (74-106) mg/dL POC Glucose 320 H 226 H 325 H (60-110) mg/dL Hemoglobin A1c (4.5-6.2) % Calcium (8.5-10.1) mg/dL Total Bilirubin (0.2-1.0) mg/dL AST (15-37) IU/L ALT (14-63) IU/L Alkaline Phosphatase (46-116) U/L Troponin I (0.000-0.056) ng/mL Total Protein (6.4-8.2) g/dL Albumin (3.4-5.0) g/dL Globulin (2.6-4.0) g/dL Albumin/Globulin Ratio (0.9-1.6) Triglycerides (0-200) mg/dL Cholesterol (50-200) mg/dL LDL Cholesterol, Calc (60-180) mg/dL VLDL Cholesterol (5-55) mg/dL HDL Cholesterol (40-60) mg/dL Cholesterol/HDL Ratio (3.3-6.0) TSH 3rd Generation (0.36-3.74) uIU/mL Urine Color Urine Appearance Urine pH (5.0-8.0) Ur Specific [place] (1.001-1.035) Urine Protein (NEGATIVE) mg/dL Urine Glucose (UA) (NEGATIVE) mg/dL Urine Ketones (NEGATIVE) mg/dL Urine Occult Blood (NEGATIVE) Urine Nitrite (NEGATIVE) Urine Bilirubin (NEGATIVE) Urine Urobilinogen (<2.0) EU/dL Ur Leukocyte Esterase (NEGATIVE) Urine RBC (0-2/HPF) Urine WBC (0-5/HPF) Ur Epithelial Cells (NONE-FEW) Urine Bacteria (NEGATIVE) Fine Granular Casts (NEGATIVE) Ketones (NEG) 12/14/18 Range/Units 07:48 WBC (4.0-11.0) K/uL RBC (4.50-5.90) M/uL Hgb (13.0-17.0) g/dL Hct (38.0-50.0) % MCV (80.0-98.0) fL MCH (27.0-32.0) pg MCHC (31.0-37.0) g/dL RDW Std Deviation (28.0-62.0) fl RDW Coeff of Dania (11.0-15.0) % Plt Count (150-400) K/uL MPV (7.40-12.00) fL Neut % (Auto) (48.0-80.0) % Lymph % (Auto) (16.0-40.0) % Hinds % (Auto) (0.0-15.0) % Eos % (Auto) (0.0-7.0) % Baso % (Auto) (0.0-1.5) % Neut # (Auto) (1.4-5.7) K/uL Lymph # (Auto) (0.6-2.4) K/uL Hinds # (Auto) (0.0-0.8) K/uL Eos # (Auto) (0.0-0.7) K/uL Baso # (Auto) (0.0-0.1) K/uL Nucleated RBC % /100WBC Nucleated RBCs # K/uL INR Sodium (136-148) mmol/L Potassium (3.5-5.1) mmol/L Chloride (98-107) mmol/L Carbon Dioxide (21.0-32.0) mmol/L BUN (7.0-18.0) mg/dL Creatinine (0.8-1.3) mg/dL Est Cr Clr Drug Dosing Estimated GFR (MDRD) ml/min Glucose (74-106) mg/dL POC Glucose (60-110) mg/dL Hemoglobin A1c (4.5-6.2) % Calcium (8.5-10.1) mg/dL Total Bilirubin (0.2-1.0) mg/dL AST (15-37) IU/L ALT (14-63) IU/L Alkaline Phosphatase (46-116) U/L Troponin I (0.000-0.056) ng/mL Total Protein (6.4-8.2) g/dL Albumin (3.4-5.0) g/dL Globulin (2.6-4.0) g/dL Albumin/Globulin Ratio (0.9-1.6) Triglycerides (0-200) mg/dL Cholesterol (50-200) mg/dL LDL Cholesterol, Calc (60-180) mg/dL VLDL Cholesterol (5-55) mg/dL HDL Cholesterol (40-60) mg/dL Cholesterol/HDL Ratio (3.3-6.0) TSH 3rd Generation (0.36-3.74) uIU/mL Urine Color YELLOW Urine Appearance HAZY Urine pH 6.5 (5.0-8.0) Ur Specific [place] 1.020 (1.001-1.035) Urine Protein >=300 H (NEGATIVE) mg/dL Urine Glucose (UA) >=1000 (NEGATIVE) mg/dL Urine Ketones NEGATIVE (NEGATIVE) mg/dL Urine Occult Blood TRACE-INTACT H (NEGATIVE) Urine Nitrite NEGATIVE (NEGATIVE) Urine Bilirubin NEGATIVE (NEGATIVE) Urine Urobilinogen 0.2 (<2.0) EU/dL Ur Leukocyte Esterase NEGATIVE (NEGATIVE) Urine RBC 1-4 (0-2/HPF) Urine WBC 0-2 (0-5/HPF) Ur Epithelial Cells OCCASIONAL (NONE-FEW) Urine Bacteria FEW (NEGATIVE) Fine Granular Casts 0-1 (NEGATIVE) Ketones (NEG) Result Diagrams: 12/14/18 01:53 12/14/18 01:53 EKG INTERPRETATION EKG Date: 12/14/18 Rhythm: NSR Rate (Beats/Min): 88 P-Wave: Present QRS: Normal ST-T: Normal QT: Normal - Problem List (1) Syncope SNOMED Code(s): 559439507 ICD Code: R55 - SYNCOPE AND COLLAPSE Status: Acute Current Visit: Yes Qualifiers: Syncope type: unspecified Qualified Code(s): R55 - Syncope and collapse (2) S/P BKA (below knee amputation) unilateral SNOMED Code(s): 052640293, 43044877, 585119315 ICD Code: Z89.519 - ACQUIRED ABSENCE OF UNSPECIFIED LEG BELOW KNEE Status: Chronic Current Visit: Yes (3) Hypertension SNOMED Code(s): 74115480 ICD Code: I10 - ESSENTIAL (PRIMARY) HYPERTENSION Status: Chronic Current Visit: Yes Qualifiers: Hypertension type: essential hypertension Qualified Code(s): I10 - Essential (primary) hypertension (4) Diabetes mellitus type 2, uncontrolled SNOMED Code(s): 512402025, 881776482 ICD Code: E11.65 - TYPE 2 DIABETES MELLITUS WITH HYPERGLYCEMIA Status: Acute Current Visit: No (5) Chronic renal insufficiency SNOMED Code(s): 162844794 ICD Code: N18.9 - CHRONIC KIDNEY DISEASE, UNSPECIFIED Status: Chronic Current Visit: No (6) Diabetic gastroparesis SNOMED Code(s): 468705479 ICD Code: E11.43 - TYPE 2 DIABETES W DIABETIC AUTONOMIC (POLY)NEUROPATHY; K31.84 - GASTROPARESIS Status: Chronic Current Visit: No (7) History of GI bleed SNOMED Code(s): 661496061 ICD Code: Z87.19 - PERSONAL HISTORY OF OTHER DISEASES OF THE DIGESTIVE SYSTEM Status: Chronic Current Visit: No (8) Hx MRSA infection SNOMED Code(s): 333091103, 353882620 ICD Code: Z86.14 - PERSONAL HISTORY OF METHICILLIN RESIS STAPH INFECTION Status: Chronic Current Visit: No (9) Hx of gastroesophageal reflux (GERD) SNOMED Code(s): 33159498054809 ICD Code: Z87.19 - PERSONAL HISTORY OF OTHER DISEASES OF THE DIGESTIVE SYSTEM Status: Chronic Current Visit: No (10) Hypertension SNOMED Code(s): 49222162 ICD Code: I10 - ESSENTIAL (PRIMARY) HYPERTENSION Status: Chronic Current Visit: No Qualifiers: Hypertension type: essential hypertension Qualified Code(s): I10 - Essential (primary) hypertension Problem List Initiated/Reviewed/Updated: Yes Orders Last 24hrs: Active Orders 24 hr Category Date Time Status Patient Status [ADT] Stat ADT 12/14/18 03:18 Active Blood Glucose Check, Bedside [RC] ONETIME Care 12/14/18 02:01 Active Cardiac Monitoring [RC] . DIRECTED Care 12/14/18 02:00 Active EKG Documentation Completion [RC] STAT Care 12/14/18 02:00 Active Intake and Output [RC] QSHIFT Care 12/14/18 08:08 Active Oxygen Therapy [RC] PRN Care 12/14/18 08:08 Active Oxygen Therapy, ED [RC] ASDIRECTED Care 12/14/18 02:00 Active Pulse Oximetry [RC] ASDIRECTED Care 12/14/18 02:00 Active Telemetry Monitoring [Cardiac Monitoring] [RC] . Care 12/14/18 04:08 Active DIRECTED Up ad Ruth [RC] ASDIRECTED Care 12/14/18 08:08 Active VTE/DVT Education [RC] PER UNIT ROUTINE Care 12/14/18 08:08 Active Vital Signs [RC] Q4H Care 12/14/18 08:08 Active ADA Diabetic [[place] [employer] Diet] [DIET Diet 12/14/18 Breakfast Active ] Ang Head wo Cont [MR] Routine Exams 12/14/18 08:30 Ordered Ang Neck w wo Cont [MR] Routine Exams 12/14/18 08:30 Ordered Brain w wo Cont [MR] Routine Exams 12/14/18 08:30 Ordered Acetaminophen [Tylenol] Med 12/14/18 08:08 Active 650 mg PO Q4H PRN Ferrous Sulfate Med 12/14/18 09:00 Active 325 mg PO DAILY Insulin Aspart [NovoLOG] Med 12/14/18 07:30 Active See Protocol SUBCUT TIDAC Insulin Glarg,Human.Rec.Analog [LantUS Solostar] Med 12/14/18 21:00 Active 50 units SUBCUT BEDTIME Metoclopramide [Reglan] Med 12/14/18 09:00 Active 10 mg PO DAILY Omeprazole Med 12/14/18 09:00 Active 40 mg PO DAILY Ondansetron [Zofran] Med 12/14/18 08:08 Active 4 mg IVPUSH Q4H PRN Sodium Chloride 0.9% [Saline Flush] Med 12/14/18 02:02 Active 10 ml FLUSH ASDIRECTED PRN Sodium Chloride 0.9% [Saline Flush] Med 12/14/18 04:08 Active 10 ml FLUSH ASDIRECTED PRN Sodium Chloride 0.9% [Saline Flush] Med 12/14/18 02:02 Active 2.5 ml FLUSH ASDIRECTED PRN Sodium Chloride 0.9% [Saline Flush] Med 12/14/18 04:08 Active 2.5 ml FLUSH ASDIRECTED PRN Saline Lock Insert [OM.PC] Routine Oth 12/14/18 04:08 Ordered Saline Lock Insert [OM.PC] Stat Oth 12/14/18 02:00 Ordered Resuscitation Status Routine Resus Stat 12/14/18 08:08 Ordered Medication Orders Acetaminophen (Tylenol) 650 mg PO Q4H PRN PRN Reason: Pain (mild 1-3) Ferrous Sulfate (Ferrous Sulfate) 325 mg PO DAILY [facility] Last Admin: 12/14/18 09:23 Dose: 325 mg Insulin Aspart (Novolog) 0 unit SUBCUT TIDAC [facility]; Protocol Last Admin: 12/14/18 06:56 Dose: 8 units Insulin Glargine (Lantus Solostar) 50 units SUBCUT BEDTIME [facility] Metoclopramide HCl (Reglan) 10 mg PO DAILY [facility] Last Admin: 12/14/18 09:23 Dose: 10 mg Omeprazole (Omeprazole) 40 mg PO DAILY [facility] Last Admin: 12/14/18 09:23 Dose: 40 mg Ondansetron HCl (Zofran) 4 mg IVPUSH Q4H PRN PRN Reason: Nausea Sodium Chloride (Saline Flush) 10 ml FLUSH ASDIRECTED PRN PRN Reason: Keep Vein Open Sodium Chloride (Saline Flush) 2.5 ml FLUSH ASDIRECTED PRN PRN Reason: Keep Vein Open Sodium Chloride (Saline Flush) 10 ml FLUSH ASDIRECTED PRN PRN Reason: Keep Vein Open Sodium Chloride (Saline Flush) 2.5 ml FLUSH ASDIRECTED PRN PRN Reason: Keep Vein Open Assessment/Plan Comment:: This 33 year old medically complex male, admitted for syncope rule out TIA 1. Syncope, rule out TIA: Will obtain MRI head and MRA head and neck today to further evaluate for TIA. No further symptoms. Discussed better blood sugar control. Actually visited with DM educator yesterday as outpatient, Meryl will stop down and speak with him today again. Lipid panel revealed LDL 180, HDL 56, total 277 and triglycerides 206. Will need to start statin. Telemetry has saba SR , no irregular rhythms. 2. HTN: Elevated 170-190s/100s. Will restart all home medications. Monitor 3. DM Type 1: Continue Insulin per home scale and continue Lantus at bedtime. 4. CKD: Stable, has appointment with Dr Hendrickson, referred by PCP, Dr Infante. Missed recent appointment will reschedule this for him. 5. R BKA: Healing well, awaiting prosthesis approval through insurance. VTE prophyalxis: SCDs Dispo: possible later today, if MRI/MRA results return and he is stable. MRI/MRI without contrast completed this afternoon, revealed tiny infarct within the posterior right frontal white matter. Age indeterminate Right retinal detachment. Grossly unremarkable intracranial circulation. Carotids reveal no focal stenosis or [id number] of significant atheromatous changes. Contrast portion still pending. Discussed findings with Waqas, will start ASA daily 81 mg as well as Atrovastatin 80 mg. He was educated on side effects of both and verbalized understanding. Will obtain ECHO. Will monitor tonight. No need for PT/OT or ST as he is back to normal with no residual effects.
[2018-12-14] MEDS: Spironolactone 25 MG Tab PO SCH (12:06)
[2018-12-14] MEDS: Torsemide 20 MG Tab PO SCH (12:06)
[2018-12-14] MEDS: Hydrochlorothiazide 25 MG Tab PO SCH (12:08)
--- NOTE | 2018-12-14 14:19 | MR ---
EXAMINATION: MR of the brain, MRA head, and MRA neck without contrast. TECHNIQUE: Multiplanar and multisequence imaging of the head without intravenous contrast. Diffusion weighted sequences were performed. Axial [id number] imaging obtained through the head and neck with MIP reconstructions. Moderate motion artifact is noted on the T2 imaging. Age indeterminant] no detachment. HISTORY: TIA. FINDINGS: MRI brain: The cerebral hemispheres and deep nuclei are without hemorrhage, mass, edema or atrophy. There is a small focus of diffusion restriction within the right subcortical posterior frontal region along the sylvian fissure. No extraaxial collections or hemorrhage. Ventricular system is of normal size and configuration without hydrocephalus. Brainstem and cerebellum are without hemorrhage, mass, edema, gliosis or atrophy. Carotid basilar artery flow voids are intact. Otomastoid airspaces are clear. No internal auditory canal or cerebellopontine angle masses. Paranasal sinuses are clear. Craniocervical junction is unremarkable. MRA head: The distal internal carotid arteries are normal. Middle, anterior, and posterior cerebral arteries are normal. Anterior and posterior communicating arteries are normal. The vertebral basilar system appears normal. No focal stenosis or aneurysm identified. MRA neck: There is a three-vessel origin on the aortic arch. The vertebral arteries are codominant. Common carotid arteries are patent. The internal carotid arteries are symmetric. No focal stenosis or evidence of significant atheromatous changes. IMPRESSION: 1. 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 2. 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 Line 3. Grossly unremarkable intracranial and cranial arterial circulation.
[2018-12-14] MEDS: hydrALAZINE 25 MG Tab PO SCH ×2 (17:41→21:08)
[2018-12-14] MEDS ORDERED: hydrALAZINE 10 MG Tab PO ONE (17:45)
[2018-12-14] MEDS ORDERED: Doxazosin 2 MG Tab PO SCH (21:00)
[2018-12-14] MEDS ORDERED: amLODIPine 5 MG Tab PO SCH (21:00)
[2018-12-14] MEDS ORDERED: atorvaSTATin 20 MG Tab PO SCH (21:00)
[2018-12-14] MEDS ORDERED: Insulin Glargine,Human Rec. Analog 100 Units/ML 3 ML Pen SUBCUT SCH (21:00)
[2018-12-14] MEDS ORDERED: atorvaSTATin 40 MG Tab PO SCH (21:00)
[2018-12-15] MEDS ORDERED: Insulin Aspart 100 Units/ML 3 ML Pen SUBCUT ONE (03:55)
[2018-12-15] MEDS: hydrALAZINE 25 MG Tab PO SCH (05:52)
[2018-12-15] MEDS: Insulin Aspart 100 Units/ML 3 ML Pen SUBCUT SCH ×2 (07:56→08:01)
[2018-12-15 08:05] VITALS: BP 121/79
[2018-12-15] MEDS ORDERED: Aspirin 81 MG Tab.EC PO SCH (09:00)
[2018-12-15] MEDS: Hydrochlorothiazide 25 MG Tab PO SCH (09:59)
[2018-12-15] MEDS: Spironolactone 25 MG Tab PO SCH (10:00)
[2018-12-15] MEDS: Ferrous Sulfate 325 MG Tab PO SCH (10:00)
[2018-12-15] MEDS: Torsemide 20 MG Tab PO SCH (10:01)
[2018-12-15] MEDS: Metoclopramide 10 MG Tab PO SCH (10:01)
[2018-12-15] MEDS: Omeprazole 20 MG Cap.CR PO SCH (10:02)
--- NOTE | 2018-12-15 10:09 | PCM.DCSUM1 ---
Discharge Summary - Hospital Course Brief History: This 33 year old male with pmh of DM type 1, CKD, HTN, and recurrent DM foot ulcer with recent R BKA presented to the ED last night via EMS with complaints of passing out, slurred speech and numbness to R distal arm. He reports he was sitting at his table last night, 0130 am and talking with his roommate. He started feeling funny and went back to his bedroom. He reports having slurred speech in which his room mate also noticed. He reports he went out to the couch and awkwardly tripped with his crutches and slid down off the couch and passed out. He reports eating just prior to this and noted BS was in the 200s. He reported some blurred vision during this time as well. No chest pain or SOB. No abdominal pain. No recent fevers or URI. He denies black or blood BMs. He reports he otherwise was feeling really good recently until this event. By the time he arrived to the ED, all symptoms had resolved and have not re-occurred. He reports quitting smoking in 2016, no chewing tobacco, no alcohol and no recreational drug use. In the ED CBC WNL, Hgb 10.7, hx of anemia of chronic disease, BUN 22, Cr 2.5, BS 220-340, Troponin negative. head CT negative, CXR negative. A1c 11.2. BP 160-190/90-110. Admission was recommended for syncope, rule out TIA. PCP, Dr Infante. Diagnosis: Stroke: Yes Modified [place] Scale: No Symptoms at All Modified [place] Scale Score: 0 - Discharge Data Discharge Date: 12/15/18 Discharge Disposition: Home, Self-Care 01 Condition: Good - Discharge Diagnosis/Problem(s) (1) CVA (cerebral vascular accident) SNOMED Code(s): 332700667 ICD Code: I63.9 - CEREBRAL INFARCTION, UNSPECIFIED Status: Acute Current Visit: Yes Qualifiers: Laterality of affected vessel: right (2) Syncope SNOMED Code(s): 225603611 ICD Code: R55 - SYNCOPE AND COLLAPSE Status: Acute Current Visit: Yes Qualifiers: Syncope type: unspecified Qualified Code(s): R55 - Syncope and collapse (3) S/P BKA (below knee amputation) unilateral SNOMED Code(s): 283936270, 17228939, 487107148 ICD Code: Z89.519 - ACQUIRED ABSENCE OF UNSPECIFIED LEG BELOW KNEE Status: Chronic Current Visit: Yes (4) Hypertension SNOMED Code(s): 50693957 ICD Code: I10 - ESSENTIAL (PRIMARY) HYPERTENSION Status: Chronic Current Visit: Yes Qualifiers: Hypertension type: essential hypertension Qualified Code(s): I10 - Essential (primary) hypertension (5) Chronic renal insufficiency SNOMED Code(s): 878415518 ICD Code: N18.9 - CHRONIC KIDNEY DISEASE, UNSPECIFIED Status: Chronic Current Visit: No (6) Diabetic gastroparesis SNOMED Code(s): 489208252 ICD Code: E11.43 - TYPE 2 DIABETES W DIABETIC AUTONOMIC (POLY)NEUROPATHY; K31.84 - GASTROPARESIS Status: Chronic Current Visit: No (7) History of GI bleed SNOMED Code(s): 766747293 ICD Code: Z87.19 - PERSONAL HISTORY OF OTHER DISEASES OF THE DIGESTIVE SYSTEM Status: Chronic Current Visit: No (8) Hx MRSA infection SNOMED Code(s): 479311357, 937312757 ICD Code: Z86.14 - PERSONAL HISTORY OF METHICILLIN RESIS STAPH INFECTION Status: Chronic Current Visit: No (9) Hx of gastroesophageal reflux (GERD) SNOMED Code(s): 98499775436507 ICD Code: Z87.19 - PERSONAL HISTORY OF OTHER DISEASES OF THE DIGESTIVE SYSTEM Status: Chronic Current Visit: No (10) Hypertension SNOMED Code(s): 59129611 ICD Code: I10 - ESSENTIAL (PRIMARY) HYPERTENSION Status: Chronic Current Visit: No Qualifiers: Hypertension type: essential hypertension Qualified Code(s): I10 - Essential (primary) hypertension (11) Diabetes mellitus type I SNOMED Code(s): 70383836 ICD Code: E10.9 - TYPE 1 DIABETES MELLITUS WITHOUT COMPLICATIONS Status: Chronic Current Visit: No Qualifiers: Diabetes mellitus complication status: with kidney complications Diabetes mellitus complication detail: with chronic kidney disease - Patient Instructions Diet: Heart Healthy Diet, Diabetic Diet Activity: As Tolerated Showering/Bathing: May Shower Notify Provider of: Fever, Increased Pain, Swelling and Redness, Drainage, Nausea and/or Vomiting - Discharge Plan *PRESCRIPTION DRUG MONITORING PROGRAM REVIEWED*: Not Applicable *COPY OF PRESCRIPTION DRUG MONITORING REPORT IN PATIENT IVELISSE: Not Applicable Prescriptions/Med Rec: Aspirin [Halfprin] 81 mg PO DAILY #30 tab.ec atorvaSTATin [Lipitor] 80 mg PO BEDTIME #60 tablet Home Medications: Home Meds Omeprazole Magnesium [Prilosec Otc] 40 mg PO DAILY 07/15/17 [History] Doxazosin [Cardura] 2 mg PO BEDTIME 09/25/17 [History] Enalapril [Vasotec] 40 mg PO BEDTIME 09/25/17 [History] Torsemide 20 mg PO DAILY 09/25/17 [History] amLODIPine Besylate [Amlodipine Besylate] 10 mg PO BEDTIME 09/25/17 [History] Ferrous Sulfate 324 mg PO DAILY 01/20/18 [History] hydrALAZINE [Apresoline] 25 mg PO TID 30 Days #90 tablet 01/29/18 [Rx] Insulin Glarg,Human.Rec.Analog [Lantus Solostar] 50 units SUBCUT BEDTIME [History] Insulin Aspart [NovoLOG] 0 unit SUBCUT ASDIRECTED PRN 05/23/18 [History] Metoclopramide HCl 10 mg PO DAILY 12/14/18 [History] Spironolactone [Aldactone] 25 mg PO DAILY 12/14/18 [History] hydroCHLOROthiazide [Hydrochlorothiazide] 25 mg PO DAILY 12/14/18 [History] Aspirin [Halfprin] 81 mg PO DAILY #30 tab.ec 12/15/18 [Rx] atorvaSTATin [Lipitor] 80 mg PO BEDTIME #60 tablet 12/15/18 [Rx] Patient Handouts: Hyperglycemia, [id number], Atorvastatin tablets, Aspirin, ASA oral tablets, Syncope, [id number], Hypertension Referrals: Elizabeth Moser MD [Physician] - 03/08/19 8:00 am Fitz Infante MD [Physician] - 12/22/18 9:00 am - Discharge Summary/Plan Comment DC Time >30 min.: No Discharge Summary/Plan Comment: Discharge Diagnoses: CVA Hyperlipidemia S/P BKA R HTN Uncontrolled DM Type 1 CKD Hx GI Bleed Hx MRSA Waqas was admitted for TIA vs syncope. MRI/MRA obtained due to pmh of vascular concerns, DM and HTN. This revealed tiny infarct within the posterior right frontal white matter. Age indeterminate Right retinal detachment. Grossly unremarkable intracranial circulation. Carotids reveal no focal stenosis or evidence of significant atheromatous changes. He was educated on these findings and need for better control of HTN and blood sugars. he verbalized understanding. Lipid panel obtained which revealed triglycerides 206, Total cholesterol 277, HDL 56 and LDL 180. He was started on Atorvastatin 80 mg daily along with ASA 81 daily. He is to continue home medications. Work on blood sugar control. Echo pending on discharge. No arrhythmia noted on telemetry. He had no symptoms after arrival to ED, so PT/OT/ST were not needed for treatment or evaluation. He will follow up with PCP and Dr Moser neurologist. He was supposed to see Financial [facility] per referral of Dr Infante, but he missed that appointment. I spoke with Dr Infante's nurse who will send referral to [facility] per patient request as Dr Hendrickson is no longer visiting specialist. He is to return to clinic or ED if concerns should arise. - General Info Date of Service: 12/15/18 Admission Dx/Problem (Free Text: Admission Diagnosis/Problem Admission Diagnosis/Problem Syncope Subjective Update: Doing well today. No complaints. NO symptoms, no weakness of headache. No slurred speech. he is eager to go home. Functional Status: Reports: Pain Controlled, Tolerating Diet, Ambulating, Urinating - Review of Systems General: Reports: No Symptoms. Denies: Fever, Weakness, Fatigue HEENT: Reports: No Symptoms. Denies: Headaches, Sore Throat, Visual Changes Pulmonary: Reports: No Symptoms. Denies: Shortness of Breath Cardiovascular: Reports: No Symptoms. Denies: Chest Pain Gastrointestinal: Reports: No Symptoms. Denies: Abdominal Pain, Nausea, Vomiting Genitourinary: Reports: No Symptoms. Denies: Dysuria, Frequency Musculoskeletal: Reports: No Symptoms Skin: Reports: No Symptoms Neurological: Reports: No Symptoms Psychiatric: Reports: No Symptoms - Patient Data Vitals - Most Recent: Last Vital Signs Temp 97.9 F 12/15/18 08:00 Pulse 100 12/15/18 08:00 Resp 18 12/15/18 08:00 BP 121/79 12/15/18 08:00 Pulse Ox 98 12/15/18 08:08 Weight - Most Recent: 76.612 kg I&O - Last 24 hours: Intake & Output 12/14/18 12/15/18 12/15/18 22:59 06:59 14:59 Intake Total 1000 Output Total 700 Balance 300 Lab Results - Last 24 hrs: Laboratory Results - last 24 hr 12/14/18 12/14/18 12/14/18 Range/Units 12:10 15:45 17:49 WBC (4.0-11.0) K/uL RBC (4.50-5.90) M/uL Hgb (13.0-17.0) g/dL Hct (38.0-50.0) % MCV (80.0-98.0) fL MCH (27.0-32.0) pg MCHC (31.0-37.0) g/dL RDW Std Deviation (28.0-62.0) fl RDW Coeff of Dania (11.0-15.0) % Plt Count (150-400) K/uL MPV (7.40-12.00) fL Neut % (Auto) (48.0-80.0) % Lymph % (Auto) (16.0-40.0) % Ocean % (Auto) (0.0-15.0) % Eos % (Auto) (0.0-7.0) % Baso % (Auto) (0.0-1.5) % Neut # (Auto) (1.4-5.7) K/uL Lymph # (Auto) (0.6-2.4) K/uL Ocean # (Auto) (0.0-0.8) K/uL Eos # (Auto) (0.0-0.7) K/uL Baso # (Auto) (0.0-0.1) K/uL Nucleated RBC % /100WBC Nucleated RBCs # K/uL Sodium (136-148) mmol/L Potassium (3.5-5.1) mmol/L Chloride (98-107) mmol/L Carbon Dioxide (21.0-32.0) mmol/L BUN (7.0-18.0) mg/dL Creatinine (0.8-1.3) mg/dL Est Cr Clr Drug Dosing mL/min Estimated GFR (MDRD) ml/min Glucose (74-106) mg/dL POC Glucose 347 H 215 H 195 H (60-110) mg/dL Calcium (8.5-10.1) mg/dL 12/15/18 12/15/18 12/15/18 Range/Units 03:15 05:25 05:25 WBC 6.09 (4.0-11.0) K/uL RBC 4.72 (4.50-5.90) M/uL Hgb 10.0 L (13.0-17.0) g/dL Hct 31.4 L (38.0-50.0) % MCV 66.5 L (80.0-98.0) fL MCH 21.2 L (27.0-32.0) pg MCHC 31.8 (31.0-37.0) g/dL RDW Std Deviation 37.7 (28.0-62.0) fl RDW Coeff of Dania 16 H (11.0-15.0) % Plt Count 257 (150-400) K/uL MPV 10.30 (7.40-12.00) fL Neut % (Auto) 50.3 (48.0-80.0) % Lymph % (Auto) 40.1 H (16.0-40.0) % Ocean % (Auto) 5.7 (0.0-15.0) % Eos % (Auto) 3.6 (0.0-7.0) % Baso % (Auto) 0.3 (0.0-1.5) % Neut # (Auto) 3.1 (1.4-5.7) K/uL Lymph # (Auto) 2.4 (0.6-2.4) K/uL Ocean # (Auto) 0.4 (0.0-0.8) K/uL Eos # (Auto) 0.2 (0.0-0.7) K/uL Baso # (Auto) 0.0 (0.0-0.1) K/uL Nucleated RBC % 0.0 /100WBC Nucleated RBCs # 0 K/uL Sodium 139 (136-148) mmol/L Potassium 3.9 (3.5-5.1) mmol/L Chloride 105 (98-107) mmol/L Carbon Dioxide 27.5 (21.0-32.0) mmol/L BUN 20 H (7.0-18.0) mg/dL Creatinine 2.0 H (0.8-1.3) mg/dL Est Cr Clr Drug Dosing 53.03 mL/min Estimated GFR (MDRD) 47.2 ml/min Glucose 352 H (74-106) mg/dL POC Glucose 393 H (60-110) mg/dL Calcium 8.4 L (8.5-10.1) mg/dL 12/15/18 12/15/18 Range/Units 05:30 07:52 WBC (4.0-11.0) K/uL RBC (4.50-5.90) M/uL Hgb (13.0-17.0) g/dL Hct (38.0-50.0) % MCV (80.0-98.0) fL MCH (27.0-32.0) pg MCHC (31.0-37.0) g/dL RDW Std Deviation (28.0-62.0) fl RDW Coeff of Dania (11.0-15.0) % Plt Count (150-400) K/uL MPV (7.40-12.00) fL Neut % (Auto) (48.0-80.0) % Lymph % (Auto) (16.0-40.0) % Ocean % (Auto) (0.0-15.0) % Eos % (Auto) (0.0-7.0) % Baso % (Auto) (0.0-1.5) % Neut # (Auto) (1.4-5.7) K/uL Lymph # (Auto) (0.6-2.4) K/uL Ocean # (Auto) (0.0-0.8) K/uL Eos # (Auto) (0.0-0.7) K/uL Baso # (Auto) (0.0-0.1) K/uL Nucleated RBC % /100WBC Nucleated RBCs # K/uL Sodium (136-148) mmol/L Potassium (3.5-5.1) mmol/L Chloride (98-107) mmol/L Carbon Dioxide (21.0-32.0) mmol/L BUN (7.0-18.0) mg/dL Creatinine (0.8-1.3) mg/dL Est Cr Clr Drug Dosing mL/min Estimated GFR (MDRD) ml/min Glucose (74-106) mg/dL POC Glucose 344 H 158 H (60-110) mg/dL Calcium (8.5-10.1) mg/dL Med Orders - Current: Current Medications Acetaminophen (Tylenol) 650 mg PO Q4H PRN PRN Reason: Pain (mild 1-3) Amlodipine Besylate (Norvasc) 10 mg PO BEDTIME [facility] Last Admin: 12/14/18 21:01 Dose: 10 mg Aspirin (Halfprin) 81 mg PO DAILY [facility] Last Admin: 12/15/18 10:01 Dose: 81 mg Atorvastatin Calcium (Lipitor) 80 mg PO BEDTIME [facility] Last Admin: 12/14/18 21:01 Dose: 80 mg Doxazosin Mesylate (Cardura) 2 mg PO BEDTIME [facility] Last Admin: 12/14/18 21:09 Dose: 2 mg Enalapril Maleate (Vasotec) 40 mg PO BEDTIME [facility] Last Admin: 12/14/18 21:02 Dose: 40 mg Ferrous Sulfate (Ferrous Sulfate) 325 mg PO DAILY [facility] Last Admin: 12/15/18 10:00 Dose: 325 mg Hydralazine HCl (Apresoline) 25 mg PO TID [facility] Last Admin: 12/15/18 05:52 Dose: 25 mg Hydrochlorothiazide (Hydrochlorothiazide) 25 mg PO DAILY [facility] Last Admin: 12/15/18 09:59 Dose: 25 mg Insulin Aspart (Novolog) 0 unit SUBCUT TIDAC [facility]; Protocol Last Admin: 12/15/18 07:56 Dose: 2 units Insulin Aspart (Novolog) 0 unit SUBCUT TIDAC [facility] Last Admin: 12/15/18 08:01 Dose: 6 unit Insulin Glargine (Lantus Solostar) 50 units SUBCUT BEDTIME [facility] Last Admin: 12/14/18 21:10 Dose: 50 intnl unit Metoclopramide HCl (Reglan) 10 mg PO DAILY [facility] Last Admin: 12/15/18 10:01 Dose: 10 mg Omeprazole (Omeprazole) 40 mg PO DAILY [facility] Last Admin: 12/15/18 10:02 Dose: 40 mg Ondansetron HCl (Zofran) 4 mg IVPUSH Q4H PRN PRN Reason: Nausea Sodium Chloride (Saline Flush) 10 ml FLUSH ASDIRECTED PRN PRN Reason: Keep Vein Open Sodium Chloride (Saline Flush) 2.5 ml FLUSH ASDIRECTED PRN PRN Reason: Keep Vein Open Sodium Chloride (Saline Flush) 10 ml FLUSH ASDIRECTED PRN PRN Reason: Keep Vein Open Sodium Chloride (Saline Flush) 2.5 ml FLUSH ASDIRECTED PRN PRN Reason: Keep Vein Open Spironolactone (Aldactone) 25 mg PO DAILY [facility] Last Admin: 12/15/18 10:00 Dose: 25 mg Torsemide (Demadex) 20 mg PO DAILY [facility] Last Admin: 12/15/18 10:01 Dose: 20 mg Discontinued Medications Atorvastatin Calcium (Lipitor) 20 mg PO BEDTIME [facility] Hydralazine HCl (Apresoline) 10 mg PO ONETIME ONE Stop: 12/14/18 17:46 Last Admin: 12/14/18 17:45 Dose: 10 mg Sodium Chloride (Normal Saline) 1,000 mls @ 999 mls/hr IV STAT ONE Stop: 12/14/18 03:02 Last Admin: 12/14/18 02:10 Dose: 999 mls/hr Insulin Aspart (Novolog) 0 unit SUBCUT ONETIME ONE Stop: 12/15/18 03:56 Last Admin: 12/15/18 04:12 Dose: 10 intunit Insulin Human Regular (Novolin R) 12 unit SUBCUT ONETIME ONE; Protocol Stop: 12/14/18 03:04 Last Admin: 12/14/18 03:16 Dose: Not Given - Exam General: Reports: Alert, Oriented, Cooperative, No Acute Distress Lungs: Reports: Clear to Auscultation, Normal Respiratory Effort Cardiovascular: Reports: Regular Rate, Regular Rhythm GI/Abdominal Exam: Normal Bowel Sounds, Soft, Non-Tender Back Exam: Reports: Normal Inspection, Full Range of Motion Extremities: Normal Inspection, Normal Range of Motion, Non-Tender, No Pedal Edema Neurological: Reports: No New Focal Deficit Psy/Mental Status: Reports: Alert, Normal Affect, Normal Mood
== END 2018-12-15 12:00 | disposition home or self-care (01) ==
LOC: MW.ED 01:45 → MW.MS 03:18
PROVIDERS: ADMIT Internal Medicine; ATTEND Internal Medicine
DX: R55 Syncope and collapse (principal); I63.9 Cerebral infarction, unspecified; E10.22 Type 1 diabetes mellitus with diabetic chronic kidney disease; I12.9 Hypertensive chronic kidney disease with stage 1 through stage 4 chronic kidney disease, or unspecified chronic kidney disease; N18.9 Chronic kidney disease, unspecified; D63.1 Anemia in chronic kidney disease; Z87.891 Personal history of nicotine dependence; Z87.19 Personal history of other diseases of the digestive system; Z86.14 Personal history of Methicillin resistant Staphylococcus aureus infection; Z89.511 Acquired absence of right leg below knee; Z79.82 Long term (current) use of aspirin; Z79.899 Other long term (current) drug therapy; Z88.0 Allergy status to penicillin; Z91.013 Allergy to seafood
CPT/HCPCS: 36415; 70450; 70544; 70547; 70551; 71045; 80048; 80053; 80061; 81001; 82009; 82962; 83036; 84443; 84484; 85025; 85610; 93005; 93306; 96360; 99285; A9270; J1815; J7040; G0378

== ENCOUNTER 2019-02-07 17:08 | Emergency (ER) | payer MEDICAID ==
[2019-02-07] MEDS ORDERED: Ondansetron 4 MG/2 ML SDV IVPUSH ONE ×2 (17:10→20:06)
[2019-02-07] MEDS ORDERED: Sodium Chloride 0.9% 1,000 ML IV ONE (17:14)
[2019-02-07] MEDS ORDERED: LORazepam 2 MG/ML SDV IVPUSH ONE (17:55)
[2019-02-07 18:00] LABS: CHLORIDE,CL 103 mmol/L (98-107); SODIUM,NA 140 mmol/L (136-148)
[2019-02-07] MEDS ORDERED: Pantoprazole 40 MG Vial IVPUSH ONE (18:18)
[2019-02-07] MEDS ORDERED: Water For Injection, Sterile 20 ML ONE (18:27)
[2019-02-07] MEDS ORDERED: Water For Injection, Sterile 20 ML SDV INJECT ONE (18:28)
--- NOTE | 2019-02-07 19:29 | CR ---
INDICATION: Syncope TECHNIQUE: Single view chest. FINDINGS: The lungs are clear. The heart, mediastinum and pulmonary vessels are of normal size. There is no evidence of pleural disease. IMPRESSION: Negative chest. Dictated by Brigida Denson MD @ Feb 07 2019 7:26PM Signed by Dr. Brigida Denson @ Feb 07 2019 7:28PM
[2019-02-07] MEDS ORDERED: Labetalol 100 MG/20 ML MDV ONE (19:40)
[2019-02-07] MEDS ORDERED: hydrALAZINE 20 MG/ML SDV IVPUSH ONE ×2 (19:40→20:17)
--- NOTE | 2019-02-07 19:47 | CT ---
HISTORY: Abdominal pain, vomiting. Possible GI bleed. TECHNIQUE: CT abdomen pelvis without contrast. COMPARISON: None. FINDINGS: Abdomen: Unenhanced liver, spleen, pancreas, and adrenal glands are unremarkable. No urinary tract calculi. No hydronephrosis or perinephric stranding. No dilated bowel. Appendix is normal. No free fluid. No acute intraperitoneal hemorrhage. No lymphadenopathy. Abdominal aorta is not dilated. Small fat containing ventral hernia just above the umbilicus. Pelvis: No lymphadenopathy. Musculoskeletal: Unremarkable. Few bone islands in the pelvis. Lower chest: 5 mm pulmonary nodule in the right lower lobe near the major fissure (series 201 image 1). 4 mm noncalcified pulmonary nodule in the left lower lobe (series 201 image 5). IMPRESSION: 1. No acute abnormality in the abdomen or pelvis. 2. Small fat containing ventral hernia. 3. Small pulmonary nodules in the lung bases measuring up to 5 mm. If patient is high risk for malignancy, consider follow-up chest CT in 12 months. Please note that all CT scans at this facility use dose modulation, iterative reconstruction, and/or weight-based dosing when appropriate to reduce radiation dose to as low as reasonably achievable. Dictated by Marcelino Onofre MD @ Feb 07 2019 7:30PM Signed by Dr. Marcelino Onofre @ Feb 07 2019 7:45PM
--- NOTE | 2019-02-07 20:01 | EDM.PDOC ---
ED HPI GENERAL MEDICAL PROBLEM - General Chief Complaint: Diabetic Complaint Stated Complaint: AMBULANCE/DIABETIC Time Seen by Provider: 02/07/19 17:15 Source of Information: Reports: Patient, EMS History Limitations: Reports: Uncooperative, Other - History of Present Illness INITIAL COMMENTS - FREE TEXT/NARRATIVE: HISTORY AND PHYSICAL: History of present illness: HPI is limited due to patient cooperation/willing to answer questions Patient is a 33-year-old male brought in by EMS for concern of "all over pain". On interview with patient he is unable to communicate due to agitation. He does repeat "hurts all over". Patient does state he feels nauseous and has abdominal pain. Patient has a history of diabetes and states he took his medication accordingly. Patient does not appear to want to answer all questions asked to him at this time. Patient denies fever, chills, chest pain, shortness of breath, or cough. Denies headache, neck stiff ness, change in vision, syncope, or near syncope. Denies diarrhea, constipation, or dysuria. Has not noted any blood in urine or stool. Review of systems: As per history of present illness and below otherwise all systems reviewed and negative. Past medical history: As per history of present illness and as reviewed below otherwise noncontributory. Surgical history: As per history of present illness and as reviewed below otherwise noncontributory. Social history: See social history for further information Family history: As per history of present illness and as reviewed below otherwise noncontributory. Physical exam: General: Patient is alert, oriented, and appears agitated but in no acute distress. Patient pacing around exam room not answering questions appropriately but alert to person, place, and self. HEENT: Atraumatic, normocephalic, pupils equal and reactive bilaterally, negative for conjunctival pallor or scleral icterus, mucous membranes moist, TMs normal bilaterally, throat clear, neck supple, nontender, trachea midline. No drooling or trismus noted. No meningeal signs. No hot potato voice noted. Lungs: Clear to auscultation, breath sounds equal bilaterally, chest nontender. Heart: S1S2, regular rate and rhythm without overt murmur. Tachycardic Abdomen: Generalized severe pain to palpation of abdomen. Soft, nondistended. Negative for masses or hepatosplenomegaly. Negative for costovertebral tenderness. Pelvis: Stable nontender. Genitourinary: Deferred. Rectal: Deferred. Skin: Intact, warm, dry. No lesions or rashes noted. Extremities:. Amputation of right foot. Atraumatic, negative for cords or calf pain. Neurovascular unremarkable Neuro: Awake, alert, oriented. Cranial nerves II through XII unremarkable. Cerebellum unremarkable. Motor and sensory unremarkable throughout. Notes: Dr. Conner verbally involved in patient care. Patient has had several episodes of emesis throughout stay in ED. His emesis has "coffee ground" appearance was tested for Hemoccult and was Hemoccult positive. He was Hemoccult negative stool. Patient requesting Reglan rather than Zofran for nausea. [facility], Dr. Oviedo, consult on patient and will transfer via EMS to [place]. We'll continue to monitor patient while awaiting EMS arrival. Voices understanding and is agreeable to plan of care. Denies any further questions or concerns at this time. Diagnostics: CBC, CMP, UA, stool culture, ova and parasite, C. difficile, bedside glucose, EKG, Hemoccult, ABG, ketones, chest x-ray, abdominal pelvic CT, head CT, ammonia , urine drug screen, ethanol Therapeutics: Ativan, Zofran x2, saline, Protonix, hydralazine x2, Benadryl, Reglan Impression: Acute upper GI bleed Altered Mental Status Uncontrolled hypertension Renal insufficiency Plan: 1. Transfer to [facility] to Dr. Oviedo Definitive disposition and diagnosis as appropriate pending reevaluation and review of above. body ache Pain Score (Numeric/FACES): 8 - Related Data Allergies Allergy/AdvReac Type Severity Reaction Status Date / Time shrimp Allergy Severe Other Verified 12/14/18 01:48 iodine Allergy Unknown Anaphylactic Verified 12/14/18 01:48 Shock Penicillins Allergy Unknown Anaphylactic Verified 12/14/18 01:48 Shock shellfish derived Allergy Anaphylactic Verified 12/14/18 01:48 Shock gluten Allergy Unknown Muscle Uncoded 12/14/18 01:48 Aches Home Meds: Home Meds Omeprazole Magnesium [Prilosec Otc] 40 mg PO DAILY 07/15/17 [History] Doxazosin [Cardura] 2 mg PO BEDTIME 09/25/17 [History] Enalapril [Vasotec] 40 mg PO BEDTIME 09/25/17 [History] Torsemide 20 mg PO DAILY 09/25/17 [History] amLODIPine Besylate [Amlodipine Besylate] 10 mg PO BEDTIME 09/25/17 [History] Ferrous Sulfate 324 mg PO DAILY 01/20/18 [History] hydrALAZINE [Apresoline] 25 mg PO TID 30 Days #90 tablet 01/29/18 [Rx] Insulin Glarg,Human.Rec.Analog [Lantus Solostar] 50 units SUBCUT BEDTIME [History] Insulin Aspart [NovoLOG] 0 unit SUBCUT ASDIRECTED PRN 05/23/18 [History] Metoclopramide HCl 10 mg PO DAILY 12/14/18 [History] Spironolactone [Aldactone] 25 mg PO DAILY 12/14/18 [History] hydroCHLOROthiazide [Hydrochlorothiazide] 25 mg PO DAILY 12/14/18 [History] Aspirin [Halfprin] 81 mg PO DAILY #30 tab.ec 12/15/18 [Rx] atorvaSTATin [Lipitor] 80 mg PO BEDTIME #60 tablet 12/15/18 [Rx] Past Medical History - Past Health History Medical/Surgical History: Denies Medical/Surgical History HEENT History: Reports: Impaired Vision Other HEENT History: blind right eye Cardiovascular History: Reports: Hypertension Respiratory History: Reports: None Gastrointestinal History: Reports: Gastritis, GERD, Hiatal Hernia Other Gastrointestinal History: h/o gastric ulcers, h/o hiatal hernia Genitourinary History: Reports: Chronic Renal Insuffiency, Diabetic Nephropathy Musculoskeletal History: Reports: Amputation Neurological History: Reports: Neuropathy, Peripheral Psychiatric History: Reports: Anxiety Endocrine/Metabolic History: Reports: Diabetes, Type I Other Endocrine/Metabolic History: brittle diabetic. 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 - Past Surgical History Head Surgeries/Procedures: Reports: None HEENT Surgical History: Reports: None Cardiovascular Surgical History: Reports: None Respiratory Surgical History: Reports: None GI Surgical History: Reports: EGD Male Surgical History: Reports: None Endocrine Surgical History: Reports: None Neurological Surgical History: Reports: None Musculoskeletal Surgical History: Reports: Amputation, Other (See Below) Other Musculoskeletal Surgeries/Procedures:: previous partial amputaton 5th toe rt foot Oncologic Surgical History: Reports: None Dermatological Surgical History: Reports: None Social & Family History - Family History Family Medical History: Noncontributory Cardiac: Reports: High Cholesterol, Hypertension OBGYN: Reports: Neurological: Reports: None - Tobacco Use Smoking Status *Q: Never Smoker - Caffeine Use Caffeine Use: Reports: Coffee - Recreational Drug Use Recreational Drug Use: No - Living Situation & Occupation Living situation: Reports: Single Occupation: Employed (Currently unemployed.) ED ROS GENERAL - Review of Systems Review Of Systems: ROS reveals no pertinent complaints other than HPI. ED EXAM GENERAL NO PERIP PULSE - Physical Exam Exam: See Below (see dictation) Course - Vital Signs Last Recorded V/S: Last Vital Signs Temp 35.8 C 02/07/19 17:09 Pulse 112 H 02/07/19 20:31 Resp 19 02/07/19 20:31 BP 219/121 H 02/07/19 20:31 Pulse Ox 99 02/07/19 20:31 - Orders/Labs/Meds Orders: Active Orders 24 hr Category Date Time Status Blood Glucose Check, Bedside [RC] ONETIME Care 02/07/19 17:15 Active EKG Documentation Completion [RC] STAT Care 02/07/19 17:10 Active Hemoccult [Fecal Occult Blood Collection] [RC] Care 02/07/19 18:19 Active ASDIRECTED Head wo Cont [CT] Stat Exams 02/07/19 20:16 Ordered AMMONIA VENOUS [CHEM] Stat Lab 02/07/19 20:27 Received CULTURE STOOL + CAMPY+SHIGATOX [RM] Stat Lab 02/07/19 17:24 Results OVA & PARASITES BY IMMUNOASSAY [MREF] Stat Lab 02/07/19 17:31 Ordered Isolation [COMM] Stat Oth 02/07/19 17:14 Ordered Labs: Laboratory Tests 02/07/19 02/07/19 02/07/19 Range/Units 17:23 17:23 17:23 WBC 8.61 (4.0-11.0) K/uL RBC 5.56 (4.50-5.90) M/uL Hgb 11.8 L (13.0-17.0) g/dL Hct 36.7 L (38.0-50.0) % MCV 66.0 L (80.0-98.0) fL MCH 21.2 L (27.0-32.0) pg MCHC 32.2 (31.0-37.0) g/dL RDW Std Deviation 38.0 (28.0-62.0) fl RDW Coeff of Dania 16 H (11.0-15.0) % Plt Count 333 (150-400) K/uL MPV 10.70 (7.40-12.00) fL Neut % (Auto) 66.0 (48.0-80.0) % Lymph % (Auto) 24.6 (16.0-40.0) % [place] % (Auto) 7.1 (0.0-15.0) % Eos % (Auto) 2.1 (0.0-7.0) % Baso % (Auto) 0.2 (0.0-1.5) % Neut # (Auto) 5.7 (1.4-5.7) K/uL Lymph # (Auto) 2.1 (0.6-2.4) K/uL [place] # (Auto) 0.6 (0.0-0.8) K/uL Eos # (Auto) 0.2 (0.0-0.7) K/uL Baso # (Auto) 0.0 (0.0-0.1) K/uL Nucleated RBC % 0.0 /100WBC Nucleated RBCs # 0 K/uL ABG pH (7.35-7.45) ABG pCO2 (35-45) mmHG ABG pO2 (75-100) mmHG ABG HCO3 (22-26) mEq/L ABG Total CO2 ABG Base Excess (-2.0-2.0) Sodium 140 (136-148) mmol/L Potassium 4.4 (3.5-5.1) mmol/L Chloride 103 (98-107) mmol/L Carbon Dioxide 22.9 (21.0-32.0) mmol/L BUN 33 H (7.0-18.0) mg/dL Creatinine 2.1 H (0.8-1.3) mg/dL Est Cr Clr Drug Dosing 43.93 mL/min Estimated GFR (MDRD) 44.6 ml/min Glucose 309 H (74-106) mg/dL Calcium 9.0 (8.5-10.1) mg/dL Total Bilirubin 0.2 (0.2-1.0) mg/dL AST 24 (15-37) IU/L ALT 33 (14-63) IU/L Alkaline Phosphatase 129 H (46-116) U/L Troponin I < 0.050 (0.000-0.056) ng/mL Total Protein 7.3 (6.4-8.2) g/dL Albumin 3.1 L (3.4-5.0) g/dL Globulin 4.2 H (2.6-4.0) g/dL Albumin/Globulin Ratio 0.7 L (0.9-1.6) Urine Color Urine Appearance Urine pH (5.0-8.0) Ur Specific [place] (1.001-1.035) Urine Protein (NEGATIVE) mg/dL Urine Glucose (UA) (NEGATIVE) mg/dL Urine Ketones (NEGATIVE) mg/dL Urine Occult Blood (NEGATIVE) Urine Nitrite (NEGATIVE) Urine Bilirubin (NEGATIVE) Urine Urobilinogen (<2.0) EU/dL Ur Leukocyte Esterase (NEGATIVE) Urine RBC (0-2/HPF) Urine WBC (0-5/HPF) Ur Epithelial Cells (NONE-FEW) Urine Bacteria (NEGATIVE) Urine Mucus (NONE-MOD) Urine Opiates Screen (NEGATIVE) Ur Oxycodone Screen (NEGATIVE) Urine Methadone Screen (NEGATIVE) Ur Barbiturates Screen (NEGATIVE) Ur Phencyclidine Scrn (NEGATIVE) Ur Amphetamine Screen (NEGATIVE) U Methamphetamines Scrn (NEGATIVE) U Benzodiazepines Scrn (NEGATIVE) U Cocaine Metab Screen (NEGATIVE) U Marijuana (THC) Screen (NEGATIVE) Ethyl Alcohol mg/dL Ketones NEGATIVE (NEG) 02/07/19 02/07/19 02/07/19 Range/Units 17:32 20:14 20:30 WBC (4.0-11.0) K/uL RBC (4.50-5.90) M/uL Hgb (13.0-17.0) g/dL Hct (38.0-50.0) % MCV (80.0-98.0) fL MCH (27.0-32.0) pg MCHC (31.0-37.0) g/dL RDW Std Deviation (28.0-62.0) fl RDW Coeff of Dania (11.0-15.0) % Plt Count (150-400) K/uL MPV (7.40-12.00) fL Neut % (Auto) (48.0-80.0) % Lymph % (Auto) (16.0-40.0) % [place] % (Auto) (0.0-15.0) % Eos % (Auto) (0.0-7.0) % Baso % (Auto) (0.0-1.5) % Neut # (Auto) (1.4-5.7) K/uL Lymph # (Auto) (0.6-2.4) K/uL [place] # (Auto) (0.0-0.8) K/uL Eos # (Auto) (0.0-0.7) K/uL Baso # (Auto) (0.0-0.1) K/uL Nucleated RBC % /100WBC Nucleated RBCs # K/uL ABG pH 7.465 H (7.35-7.45) ABG pCO2 32 L (35-45) mmHG ABG pO2 80 (75-100) mmHG ABG HCO3 23 (22-26) mEq/L ABG Total CO2 20.9 ABG Base Excess -0.2 (-2.0-2.0) Sodium (136-148) mmol/L Potassium (3.5-5.1) mmol/L Chloride (98-107) mmol/L Carbon Dioxide (21.0-32.0) mmol/L BUN (7.0-18.0) mg/dL Creatinine (0.8-1.3) mg/dL Est Cr Clr Drug Dosing mL/min Estimated GFR (MDRD) ml/min Glucose (74-106) mg/dL Calcium (8.5-10.1) mg/dL Total Bilirubin (0.2-1.0) mg/dL AST (15-37) IU/L ALT (14-63) IU/L Alkaline Phosphatase (46-116) U/L Troponin I (0.000-0.056) ng/mL Total Protein (6.4-8.2) g/dL Albumin (3.4-5.0) g/dL Globulin (2.6-4.0) g/dL Albumin/Globulin Ratio (0.9-1.6) Urine Color YELLOW Urine Appearance CLEAR Urine pH 7.0 (5.0-8.0) Ur Specific [place] 1.020 (1.001-1.035) Urine Protein 100 H (NEGATIVE) mg/dL Urine Glucose (UA) >=1000 (NEGATIVE) mg/dL Urine Ketones 15 H (NEGATIVE) mg/dL Urine Occult Blood SMALL H (NEGATIVE) Urine Nitrite NEGATIVE (NEGATIVE) Urine Bilirubin NEGATIVE (NEGATIVE) Urine Urobilinogen 0.2 (<2.0) EU/dL Ur Leukocyte Esterase NEGATIVE (NEGATIVE) Urine RBC 2-6 (0-2/HPF) Urine WBC 0-3 (0-5/HPF) Ur Epithelial Cells RARE (NONE-FEW) Urine Bacteria FEW (NEGATIVE) Urine Mucus LIGHT (NONE-MOD) Urine Opiates Screen (NEGATIVE) Ur Oxycodone Screen (NEGATIVE) Urine Methadone Screen (NEGATIVE) Ur Barbiturates Screen (NEGATIVE) Ur Phencyclidine Scrn (NEGATIVE) Ur Amphetamine Screen (NEGATIVE) U Methamphetamines Scrn (NEGATIVE) U Benzodiazepines Scrn (NEGATIVE) U Cocaine Metab Screen (NEGATIVE) U Marijuana (THC) Screen (NEGATIVE) Ethyl Alcohol <3 mg/dL Ketones (NEG) 02/07/19 Range/Units 20:30 WBC (4.0-11.0) K/uL RBC (4.50-5.90) M/uL Hgb (13.0-17.0) g/dL Hct (38.0-50.0) % MCV (80.0-98.0) fL MCH (27.0-32.0) pg MCHC (31.0-37.0) g/dL RDW Std Deviation (28.0-62.0) fl RDW Coeff of Dania (11.0-15.0) % Plt Count (150-400) K/uL MPV (7.40-12.00) fL Neut % (Auto) (48.0-80.0) % Lymph % (Auto) (16.0-40.0) % [place] % (Auto) (0.0-15.0) % Eos % (Auto) (0.0-7.0) % Baso % (Auto) (0.0-1.5) % Neut # (Auto) (1.4-5.7) K/uL Lymph # (Auto) (0.6-2.4) K/uL [facility] # (Auto) (0.0-0.8) K/uL Eos # (Auto) (0.0-0.7) K/uL Baso # (Auto) (0.0-0.1) K/uL Nucleated RBC % /100WBC Nucleated RBCs # K/uL ABG pH (7.35-7.45) ABG pCO2 (35-45) mmHG ABG pO2 (75-100) mmHG ABG HCO3 (22-26) mEq/L ABG Total CO2 ABG Base Excess (-2.0-2.0) Sodium (136-148) mmol/L Potassium (3.5-5.1) mmol/L Chloride (98-107) mmol/L Carbon Dioxide (21.0-32.0) mmol/L BUN (7.0-18.0) mg/dL Creatinine (0.8-1.3) mg/dL Est Cr Clr Drug Dosing mL/min Estimated GFR (MDRD) ml/min Glucose (74-106) mg/dL Calcium (8.5-10.1) mg/dL Total Bilirubin (0.2-1.0) mg/dL AST (15-37) IU/L ALT (14-63) IU/L Alkaline Phosphatase (46-116) U/L Troponin I (0.000-0.056) ng/mL Total Protein (6.4-8.2) g/dL Albumin (3.4-5.0) g/dL Globulin (2.6-4.0) g/dL Albumin/Globulin Ratio (0.9-1.6) Urine Color Urine Appearance Urine pH (5.0-8.0) Ur Specific [place] (1.001-1.035) Urine Protein (NEGATIVE) mg/dL Urine Glucose (UA) (NEGATIVE) mg/dL Urine Ketones (NEGATIVE) mg/dL Urine Occult Blood (NEGATIVE) Urine Nitrite (NEGATIVE) Urine Bilirubin (NEGATIVE) Urine Urobilinogen (<2.0) EU/dL Ur Leukocyte Esterase (NEGATIVE) Urine RBC (0-2/HPF) Urine WBC (0-5/HPF) Ur Epithelial Cells (NONE-FEW) Urine Bacteria (NEGATIVE) Urine Mucus (NONE-MOD) Urine Opiates Screen NEGATIVE (NEGATIVE) Ur Oxycodone Screen NEGATIVE (NEGATIVE) Urine Methadone Screen NEGATIVE (NEGATIVE) Ur Barbiturates Screen NEGATIVE (NEGATIVE) Ur Phencyclidine Scrn NEGATIVE (NEGATIVE) Ur Amphetamine Screen NEGATIVE (NEGATIVE) U Methamphetamines Scrn NEGATIVE (NEGATIVE) U Benzodiazepines Scrn NEGATIVE (NEGATIVE) U Cocaine Metab Screen NEGATIVE (NEGATIVE) U Marijuana (THC) Screen POSITIVE (NEGATIVE) Ethyl Alcohol mg/dL Ketones (NEG) Meds: Medications Discontinued Medications Generic Name Dose Route Start Last Admin Trade Name Freq PRN Reason Stop Dose Admin Hydralazine HCl 10 mg 02/07/19 19:40 02/07/19 19:46 Apresoline IVPUSH 02/07/19 19:41 10 mg ONETIME ONE Administration Hydralazine HCl 10 mg 02/07/19 20:17 02/07/19 20:34 Apresoline IVPUSH 02/07/19 20:18 10 mg ONETIME ONE Administration Sodium Chloride 1,000 mls @ 999 mls/hr 02/07/19 17:14 02/07/19 17:30 Normal Saline IV 02/07/19 18:14 999 mls/hr STAT ONE Administration Sterile Water Confirm 02/07/19 18:27 02/07/19 18:59 Sterile Water For Injection Administered 02/07/19 18:28 Not Given Dose 20 mls @ as directed .ROUTE .STK-MED ONE Labetalol HCl Confirm 02/07/19 19:40 02/07/19 19:42 Normodyne Administered 02/07/19 19:41 Not Given Dose 100 mg .ROUTE .STK-MED ONE Lorazepam 1 mg 02/07/19 17:55 02/07/19 18:15 Ativan IVPUSH 02/07/19 17:56 1 mg ONETIME ONE Administration Ondansetron HCl 4 mg 02/07/19 17:10 02/07/19 17:30 Zofran IVPUSH 02/07/19 17:11 4 mg ONETIME ONE Administration Ondansetron HCl 4 mg 02/07/19 20:06 02/07/19 20:33 Zofran IVPUSH 02/07/19 20:07 4 mg ONETIME ONE Administration Pantoprazole Sodium 80 mg 02/07/19 18:18 02/07/19 18:58 Protonix Iv IVPUSH 02/07/19 18:19 80 mg .BOLUS ONE Administration Sterile Water 20 ml 02/07/19 18:28 02/07/19 18:58 Sterile Water For Injection INJECT 02/07/19 18:29 20 ml ONETIME ONE Administration Departure - Departure Time of Disposition: 21:05 Disposition: DC/Tfer to [facility] 02 Clinical Impression: Upper gastrointestinal bleed, Uncontrolled hypertension, Renal insufficiency Altered mental status Qualifiers: Altered mental status type: unspecified Qualified Code(s): R41.82 - Altered mental status, unspecified - Discharge Information - My Orders Last 24 Hours: My Active Orders 02/07/19 17:10 EKG Documentation Completion [RC] STAT 02/07/19 17:14 Isolation [COMM] Stat 02/07/19 17:15 Blood Glucose Check, Bedside [RC] ONETIME 02/07/19 17:24 CULTURE STOOL + CAMPY+SHIGATOX [RM] Stat 02/07/19 17:31 OVA & PARASITES BY IMMUNOASSAY [MREF] Stat 02/07/19 18:19 Hemoccult [Fecal Occult Blood Collection] [RC] ASDIRECTED 02/07/19 20:16 Head wo Cont [CT] Stat 02/07/19 20:27 AMMONIA VENOUS [CHEM] Stat - Assessment/Plan Last 24 Hours: My Active Orders 02/07/19 17:10 EKG Documentation Completion [RC] STAT 02/07/19 17:14 Isolation [COMM] Stat 02/07/19 17:15 Blood Glucose Check, Bedside [RC] ONETIME 02/07/19 17:24 CULTURE STOOL + CAMPY+SHIGATOX [RM] Stat 02/07/19 17:31 OVA & PARASITES BY IMMUNOASSAY [MREF] Stat 02/07/19 18:19 Hemoccult [Fecal Occult Blood Collection] [RC] ASDIRECTED 02/07/19 20:16 Head wo Cont [CT] Stat 02/07/19 20:27 AMMONIA VENOUS [CHEM] Stat
[2019-02-07] MEDS ORDERED: diphenhydrAMINE 50 MG/ML SDV IVPUSH ONE (21:00)
[2019-02-07] MEDS ORDERED: Metoclopramide 10 MG/2 ML SDV IV ONE (21:00)
--- NOTE | 2019-02-07 21:36 | CT ---
INDICATION: Headache and elevated blood pressure. TECHNIQUE: CT head without contrast. COMPARISON: Head CT 12/14/2018 FINDINGS: CSF spaces: Within normal limits for age. Brain parenchyma: The hernandez-white differentiation is normal. No sign of mass, hemorrhage, or midline shift. Skull base and calvarium: The visualized paranasal sinuses and mastoid air cells demonstrate no acute or significant findings. The visualized orbits are grossly unremarkable. No skull fractures. IMPRESSION: Unremarkable noncontrast head CT. Please note that all CT scans at this facility use dose modulation, iterative reconstruction, and/or weight-based dosing when appropriate to reduce radiation dose to as low as reasonably achievable. Dictated by Kj Meyer MD @ Feb 07 2019 9:33PM Signed by Dr. jK Meyer @ Feb 07 2019 9:35PM
[2019-02-07 21:54] VITALS: BP 200/109
== END 2019-02-07 22:04 ==
LOC: MW.ED 17:08
DX: R41.82 Altered mental status, unspecified (principal); K92.2 Gastrointestinal hemorrhage, unspecified; I12.9 Hypertensive chronic kidney disease with stage 1 through stage 4 chronic kidney disease, or unspecified chronic kidney disease; N18.9 Chronic kidney disease, unspecified; F41.9 Anxiety disorder, unspecified; K21.9 Gastro-esophageal reflux disease without esophagitis; E10.22 Type 1 diabetes mellitus with diabetic chronic kidney disease; E10.21 Type 1 diabetes mellitus with diabetic nephropathy; D64.9 Anemia, unspecified; Z79.82 Long term (current) use of aspirin; Z79.899 Other long term (current) drug therapy; Z79.4 Long term (current) use of insulin
CPT/HCPCS: 36415; 36600; 70450; 71045; 74176; 80053; 80305; 81001; 82009; 82140; 82803; 84484; 85025; 87046; 87324; 87328; 87329; 87899; 93005; 96361; 96374; 96375; 96376; 99285; C9113; G0480; J0360; J1200; J2060; J2405; J2765; J7040

== ENCOUNTER 2019-03-09 16:24 | Emergency (ER) | payer MEDICAID ==
[2019-03-09] MEDS ORDERED: Ondansetron 4 MG/2 ML SDV IVPUSH ONE (16:36)
[2019-03-09] MEDS ORDERED: Alum Hydrox/Mag Hydrox/Simeth 15 ML, Lidocaine 2% 5 ML PO ONE ×2 (17:07)
[2019-03-09 17:18] LABS: CHLORIDE,CL 104 mmol/L (98-107); SODIUM,NA 141 mmol/L (136-148)
--- NOTE | 2019-03-09 17:18 | EDM.PDOC ---
ED HPI GENERAL MEDICAL PROBLEM - General Chief Complaint: Diabetic Complaint Stated Complaint: AMBULANCE Time Seen by Provider: 03/09/19 16:35 Source of Information: Reports: Patient History Limitations: Reports: No Limitations - History of Present Illness INITIAL COMMENTS - FREE TEXT/NARRATIVE: HISTORY AND PHYSICAL: History of present illness: Patient is a 33-year-old male presents to the ED via EMS with complaint of abdominal pain and vomiting since last night. He was concerned for DKA. He states he is not able to keep anything down. He denies fevers, chills, hematemesis, melena, hematochezia. Blood sugar is 250 on arrival. Patient is forcing himself to vomit in ED. He kept down GI cocktail while in ED. Review of systems: As per history of present illness and below otherwise all systems reviewed and negative. Past medical history: As per history of present illness and as reviewed below otherwise noncontributory. Surgical history: As per history of present illness and as reviewed below otherwise noncontributory. Social history: No reported history of drug or alcohol abuse. Family history: As per history of present illness and as reviewed below otherwise noncontributory. Physical exam: General: Patient sitting comfortably in no acute distress and nontoxic appearing HEENT: Atraumatic, normocephalic, pupils reactive, negative for conjunctival pallor or scleral icterus, mucous membranes moist, throat clear, neck supple, nontender, trachea midline. No meningeal signs. Lungs: Clear to auscultation, breath sounds equal bilaterally, chest nontender. Heart: S1S2, regular, negative for clicks, rubs, or overt murmur. Abdomen: Soft, nondistended, nontender. Negative for masses or hepatosplenomegaly. Negative for costovertebral tenderness. No rigidity, rebound , guarding. Pelvis: Stable nontender. Genitourinary: Deferred. Rectal: Deferred. Extremities: Atraumatic, negative for cords or calf pain. Neurovascular unremarkable. Below the knee amputation on the right Neuro: Awake, alert, oriented. Cranial nerves II through XII unremarkable. Cerebellum unremarkable. Motor and sensory unremarkable throughout. Exam nonfocal. Notes: Dr. Fernandes evaluated patient and agrees to disposition. Diagnostics: CBC, CMP, ABG, UA Therapeutics: Zofran IV Protonix IV GI cocktail Prescriptions: Impression: Vomiting Plan: 1. Follow up with primary care provider 2. Return to ED as needed as discussed Definitive disposition and diagnosis as appropriate pending reevaluation and review of above. Abdominal Pain Score (Numeric/FACES): 10 - Related Data Allergies Allergy/AdvReac Type Severity Reaction Status Date / Time shrimp Allergy Severe Other Verified 03/09/19 16:30 iodine Allergy Unknown Anaphylactic Verified 03/09/19 16:30 Shock Penicillins Allergy Unknown Anaphylactic Verified 03/09/19 16:30 Shock shellfish derived Allergy Anaphylactic Verified 03/09/19 16:30 Shock gluten Allergy Unknown Muscle Uncoded 03/09/19 16:30 Aches Home Meds: Home Meds Omeprazole Magnesium [Prilosec Otc] 40 mg PO DAILY 07/15/17 [History] Doxazosin [Cardura] 2 mg PO BEDTIME 09/25/17 [History] Enalapril [Vasotec] 40 mg PO BEDTIME 09/25/17 [History] Torsemide 20 mg PO DAILY 09/25/17 [History] amLODIPine Besylate [Amlodipine Besylate] 10 mg PO BEDTIME 09/25/17 [History] Ferrous Sulfate 324 mg PO DAILY 01/20/18 [History] hydrALAZINE [Apresoline] 25 mg PO TID 30 Days #90 tablet 01/29/18 [Rx] Insulin Glarg,Human.Rec.Analog [Lantus Solostar] 50 units SUBCUT BEDTIME [History] Insulin Aspart [NovoLOG] 0 unit SUBCUT ASDIRECTED PRN 05/23/18 [History] Metoclopramide HCl 10 mg PO DAILY 12/14/18 [History] Spironolactone [Aldactone] 25 mg PO DAILY 12/14/18 [History] hydroCHLOROthiazide [Hydrochlorothiazide] 25 mg PO DAILY 12/14/18 [History] Aspirin [Halfprin] 81 mg PO DAILY #30 tab.ec 12/15/18 [Rx] atorvaSTATin [Lipitor] 80 mg PO BEDTIME #60 tablet 12/15/18 [Rx] Metoclopramide HCl [Reglan] 10 mg PO BID #10 tablet 03/09/19 [Rx] Past Medical History - Past Health History Medical/Surgical History: Denies Medical/Surgical History HEENT History: Reports: Impaired Vision Other HEENT History: blind right eye Cardiovascular History: Reports: Hypertension Respiratory History: Reports: None Gastrointestinal History: Reports: Gastritis, GERD, Hiatal Hernia Other Gastrointestinal History: h/o gastric ulcers, h/o hiatal hernia Genitourinary History: Reports: Chronic Renal Insuffiency, Diabetic Nephropathy Musculoskeletal History: Reports: Amputation Neurological History: Reports: Neuropathy, Peripheral Psychiatric History: Reports: Anxiety Endocrine/Metabolic History: Reports: Diabetes, Type I Other Endocrine/Metabolic History: brittle diabetic. 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 - Past Surgical History Head Surgeries/Procedures: Reports: None HEENT Surgical History: Reports: None Cardiovascular Surgical History: Reports: None Respiratory Surgical History: Reports: None GI Surgical History: Reports: EGD Male Surgical History: Reports: None Endocrine Surgical History: Reports: None Neurological Surgical History: Reports: None Musculoskeletal Surgical History: Reports: Amputation, Other (See Below) Other Musculoskeletal Surgeries/Procedures:: previous partial amputaton 5th toe rt foot. Below the knee amputation right knee Oncologic Surgical History: Reports: None Dermatological Surgical History: Reports: None Social & Family History - Family History Family Medical History: Noncontributory Cardiac: Reports: High Cholesterol, Hypertension OBGYN: Reports: Neurological: Reports: None - Tobacco Use Smoking Status *Q: Never Smoker Second Hand Smoke Exposure: No - Caffeine Use Caffeine Use: Reports: None - Recreational Drug Use Recreational Drug Use: No - Living Situation & Occupation Living situation: Reports: Single Occupation: Employed (Currently unemployed.) ED ROS GENERAL - Review of Systems Review Of Systems: ROS reveals no pertinent complaints other than HPI. ED EXAM GENERAL NO PERIP PULSE - Physical Exam Exam: See Below (see dictation) Course - Vital Signs Last Recorded V/S: Last Vital Signs Temp 96.1 F 03/09/19 16:31 Pulse 121 H 03/09/19 16:31 Resp 22 H 03/09/19 16:31 BP 197/121 H 03/09/19 16:31 Pulse Ox 100 03/09/19 16:31 - Orders/Labs/Meds Labs: Laboratory Tests 03/09/19 03/09/19 03/09/19 Range/Units 16:25 16:56 17:02 WBC (4.0-11.0) K/uL RBC (4.50-5.90) M/uL Hgb (13.0-17.0) g/dL Hct (38.0-50.0) % MCV (80.0-98.0) fL MCH (27.0-32.0) pg MCHC (31.0-37.0) g/dL RDW Std Deviation (28.0-62.0) fl RDW Coeff of Dania (11.0-15.0) % Plt Count (150-400) K/uL MPV (7.40-12.00) fL Neut % (Auto) (48.0-80.0) % Lymph % (Auto) (16.0-40.0) % [place] % (Auto) (0.0-15.0) % Eos % (Auto) (0.0-7.0) % Baso % (Auto) (0.0-1.5) % Neut # (Auto) (1.4-5.7) K/uL Lymph # (Auto) (0.6-2.4) K/uL [place] # (Auto) (0.0-0.8) K/uL Eos # (Auto) (0.0-0.7) K/uL Baso # (Auto) (0.0-0.1) K/uL Nucleated RBC % /100WBC Nucleated RBCs # K/uL ABG pH 7.645 H (7.35-7.45) ABG pCO2 21 L (35-45) mmHG ABG pO2 106 H (75-100) mmHG ABG HCO3 23 (22-26) mEq/L ABG Total CO2 20.7 ABG Base Excess 3.4 H (-2.0-2.0) Sodium 141 (136-148) mmol/L Potassium 4.3 (3.5-5.1) mmol/L Chloride 104 (98-107) mmol/L Carbon Dioxide 24.7 (21.0-32.0) mmol/L BUN 38 H (7.0-18.0) mg/dL Creatinine 2.2 H (0.8-1.3) mg/dL Est Cr Clr Drug Dosing TNP Estimated GFR (MDRD) 42.3 ml/min Glucose 267 H (74-106) mg/dL Calcium 9.2 (8.5-10.1) mg/dL Total Bilirubin 0.2 (0.2-1.0) mg/dL AST 54 H (15-37) IU/L ALT 114 H (14-63) IU/L Alkaline Phosphatase 152 H (46-116) U/L Total Protein 7.3 (6.4-8.2) g/dL Albumin 3.3 L (3.4-5.0) g/dL Globulin 4.0 (2.6-4.0) g/dL Albumin/Globulin Ratio 0.8 L (0.9-1.6) Lipase 43 L (73-393) U/L Urine Color YELLOW Urine Appearance CLEAR Urine pH 7.5 (5.0-8.0) Ur Specific [place] 1.020 (1.001-1.035) Urine Protein >=300 H (NEGATIVE) mg/dL Urine Glucose (UA) 100 H (NEGATIVE) mg/dL Urine Ketones NEGATIVE (NEGATIVE) mg/dL Urine Occult Blood SMALL H (NEGATIVE) Urine Nitrite NEGATIVE (NEGATIVE) Urine Bilirubin NEGATIVE (NEGATIVE) Urine Urobilinogen 0.2 (<2.0) EU/dL Ur Leukocyte Esterase NEGATIVE (NEGATIVE) Urine RBC 2-4 (0-2/HPF) Urine WBC NONE SEEN (0-5/HPF) Ur Epithelial Cells NOT SEEN (NONE-FEW) Urine Bacteria RARE (NEGATIVE) 03/09/19 Range/Units 17:08 WBC 8.83 (4.0-11.0) K/uL RBC 5.36 (4.50-5.90) M/uL Hgb 11.4 L (13.0-17.0) g/dL Hct 35.5 L (38.0-50.0) % MCV 66.2 L (80.0-98.0) fL MCH 21.3 L (27.0-32.0) pg MCHC 32.1 (31.0-37.0) g/dL RDW Std Deviation 38.6 (28.0-62.0) fl RDW Coeff of Dania 16 H (11.0-15.0) % Plt Count 318 (150-400) K/uL MPV 11.30 (7.40-12.00) fL Neut % (Auto) 68.0 (48.0-80.0) % Lymph % (Auto) 23.7 (16.0-40.0) % [place] % (Auto) 6.0 (0.0-15.0) % Eos % (Auto) 1.6 (0.0-7.0) % Baso % (Auto) 0.7 (0.0-1.5) % Neut # (Auto) 6.0 H (1.4-5.7) K/uL Lymph # (Auto) 2.1 (0.6-2.4) K/uL [place] # (Auto) 0.5 (0.0-0.8) K/uL Eos # (Auto) 0.1 (0.0-0.7) K/uL Baso # (Auto) 0.1 (0.0-0.1) K/uL Nucleated RBC % 0.0 /100WBC Nucleated RBCs # 0 K/uL ABG pH (7.35-7.45) ABG pCO2 (35-45) mmHG ABG pO2 (75-100) mmHG ABG HCO3 (22-26) mEq/L ABG Total CO2 ABG Base Excess (-2.0-2.0) Sodium (136-148) mmol/L Potassium (3.5-5.1) mmol/L Chloride (98-107) mmol/L Carbon Dioxide (21.0-32.0) mmol/L BUN (7.0-18.0) mg/dL Creatinine (0.8-1.3) mg/dL Est Cr Clr Drug Dosing Estimated GFR (MDRD) ml/min Glucose (74-106) mg/dL Calcium (8.5-10.1) mg/dL Total Bilirubin (0.2-1.0) mg/dL AST (15-37) IU/L ALT (14-63) IU/L Alkaline Phosphatase (46-116) U/L Total Protein (6.4-8.2) g/dL Albumin (3.4-5.0) g/dL Globulin (2.6-4.0) g/dL Albumin/Globulin Ratio (0.9-1.6) Lipase (73-393) U/L Urine Color Urine Appearance Urine pH (5.0-8.0) Ur Specific [place] (1.001-1.035) Urine Protein (NEGATIVE) mg/dL Urine Glucose (UA) (NEGATIVE) mg/dL Urine Ketones (NEGATIVE) mg/dL Urine Occult Blood (NEGATIVE) Urine Nitrite (NEGATIVE) Urine Bilirubin (NEGATIVE) Urine Urobilinogen (<2.0) EU/dL Ur Leukocyte Esterase (NEGATIVE) Urine RBC (0-2/HPF) Urine WBC (0-5/HPF) Ur Epithelial Cells (NONE-FEW) Urine Bacteria (NEGATIVE) Meds: Medications Discontinued Medications Generic Name Dose Route Start Last Admin Trade Name Freq PRN Reason Stop Dose Admin Al Hydroxide/Mg Hydroxide 15 0 ml 03/09/19 17:07 03/09/19 17:14 ml/ Lidocaine HCl 5 ml PO 03/09/19 17:08 1 each ONETIME ONE Administration Sterile Water Confirm 03/09/19 17:22 03/09/19 17:25 Sterile Water For Injection Administered 03/09/19 17:23 200 mls/hr Dose Administration 20 mls @ as directed .ROUTE .STK-MED ONE Ondansetron HCl 4 mg 03/09/19 16:36 03/09/19 16:40 Zofran IVPUSH 03/09/19 16:37 4 mg ONETIME ONE Administration Pantoprazole Sodium 80 mg 03/09/19 17:19 03/09/19 17:25 Protonix Iv IVPUSH 03/09/19 17:20 80 mg .BOLUS ONE Administration Pantoprazole Sodium Confirm 03/09/19 17:22 03/09/19 17:25 Protonix Iv Administered 03/09/19 17:23 Not Given Dose 80 mg .ROUTE .STK-MED ONE Departure - Departure Time of Disposition: 17:45 Disposition: Home, Self-Care 01 Condition: Good Clinical Impression: Vomiting Qualifiers: Vomiting type: unspecified Vomiting Intractability: non-intractable Nausea presence: with nausea Qualified Code(s): R11.2 - Nausea with vomiting, unspecified - Discharge Information Prescriptions: Metoclopramide HCl [Reglan] 10 mg PO BID #10 tablet Referrals: PCP,None [Primary Care Provider] - Forms: ED Department Discharge Additional Instructions: The following information is given to patients seen in the emergency department who are being discharged to home. This information is to outline your options for follow-up care. We provide all patients seen in our emergency department with a follow-up referral. The need for follow-up, as well as the timing and circumstances, are variable depending upon the specifics of your emergency department visit. If you don't have a primary care physician on staff, we will provide you with a referral. We always advise you to contact your personal physician following an emergency department visit to inform them of the circumstance of the visit and for follow-up with them and/or the need for any referrals to a consulting specialist. The emergency department will also refer you to a specialist when appropriate. This referral assures that you have the opportunity for follow-up care with a specialist. All of these measure are taken in an effort to provide you with optimal care, which includes your follow-up. Under all circumstances we always encourage you to contact your private physician who remains a resource for coordinating your care. When calling for follow-up care, please make the office aware that this follow-up is from your recent emergency room visit. If for any reason you are refused follow-up, please contact the [facility] at and asked to speak to the emergency department charge nurse. [facility] [address] [place] [id number] [facility] [address] [place] [id number] 1. Follow up with primary care provider 2. Return to ED as needed as discussed
[2019-03-09] MEDS ORDERED: Pantoprazole 40 MG Vial IVPUSH ONE (17:19)
[2019-03-09] MEDS ORDERED: Pantoprazole 40 MG Vial ONE (17:22)
[2019-03-09] MEDS ORDERED: Water For Injection, Sterile 20 ML ONE (17:22)
[2019-03-09 18:02] VITALS: BP 191/116
== END 2019-03-09 18:02 | disposition home or self-care (01) ==
LOC: MW.ED 16:24
DX: R11.2 Nausea with vomiting, unspecified (principal); I10 Essential (primary) hypertension; E11.21 Type 2 diabetes mellitus with diabetic nephropathy; Z91.013 Allergy to seafood; Z88.0 Allergy status to penicillin; Z79.899 Other long term (current) drug therapy; Z79.82 Long term (current) use of aspirin
CPT/HCPCS: 36415; 36600; 80053; 81001; 82803; 83690; 85025; 96374; 96375; 99284; A9270; C9113; J2405

== ENCOUNTER 2019-03-09 21:56 | Observation (INO) | payer MEDICAID ==
[2019-03-09] MEDS ORDERED: diphenhydrAMINE 50 MG/ML SDV IVPUSH ONE (22:00)
[2019-03-09] MEDS ORDERED: Sodium Chloride 0.9% 1,000 ML IV ONE (22:00)
[2019-03-09] MEDS ORDERED: Metoclopramide 10 MG/2 ML SDV IV ONE (22:00)
--- NOTE | 2019-03-09 22:04 | EDM.PDOC ---
ED HPI GENERAL MEDICAL PROBLEM - General Chief Complaint: Abdominal Pain Stated Complaint: PT HAS STOMACH PAIN Time Seen by Provider: 03/10/19 00:08 - History of Present Illness INITIAL COMMENTS - FREE TEXT/NARRATIVE: HISTORY AND PHYSICAL: History of present illness: Patient 33-year-old black male with history of diabetes chronic abdominal pain who was seen earlier for same and discharged and returns. Patient chief complaint remains his chronic abdominal pain he had an extensive workup prior and returned via paramedics. There's been no reported fever chills chest pain or shortness of breath Review of systems: As per history of present illness and below otherwise all systems reviewed and negative. Past medical history: As per history of present illness and as reviewed below otherwise noncontributory. Surgical history: As per history of present illness and as reviewed below otherwise noncontributory. Social history: No reported history of drug or alcohol abuse. Family history: As per history of present illness and as reviewed below otherwise noncontributory. Physical exam: HEENT: Atraumatic, normocephalic, negative for conjunctival pallor or scleral icterus, mucous membranes moist, throat clear, neck supple, nontender, trachea midline. Lungs: Clear to auscultation, breath sounds equal bilaterally, chest nontender. Heart: S1S2, regular, negative for clicks, rubs, or JVD. Abdomen: Soft, nondistended, no localized tenderness. Negative for masses or hepatosplenomegaly. Negative for costovertebral tenderness. Pelvis: Stable nontender. Genitourinary: Deferred. Rectal: Deferred. Extremities: Right BKA. Neuro: Awake, alert, oriented. Follows commands moves all extremities limited grossly nonfocal exam Diagnostics: CBC CMP lipase UA ABG acute abdominal series with chest x-ray Therapeutics: Saline 1 L bolus Reglan 10 mg IV Benadryl 25 mg IV Impression: #1 history diabetes #2 chronic abdominal pain Definitive disposition and diagnosis as appropriate pending reevaluation and review of above. - Related Data Allergies Allergy/AdvReac Type Severity Reaction Status Date / Time shrimp Allergy Severe Other Verified 03/09/19 16:30 iodine Allergy Unknown Anaphylactic Verified 03/09/19 16:30 Shock Penicillins Allergy Unknown Anaphylactic Verified 03/09/19 16:30 Shock shellfish derived Allergy Anaphylactic Verified 03/09/19 16:30 Shock gluten Allergy Unknown Muscle Uncoded 03/09/19 16:30 Aches Home Meds: Home Meds Omeprazole Magnesium [Prilosec Otc] 40 mg PO DAILY 07/15/17 [History] Doxazosin [Cardura] 2 mg PO BEDTIME 09/25/17 [History] Enalapril [Vasotec] 40 mg PO BEDTIME 09/25/17 [History] Torsemide 20 mg PO DAILY 09/25/17 [History] amLODIPine Besylate [Amlodipine Besylate] 10 mg PO BEDTIME 09/25/17 [History] Ferrous Sulfate 324 mg PO DAILY 01/20/18 [History] hydrALAZINE [Apresoline] 25 mg PO TID 30 Days #90 tablet 01/29/18 [Rx] Insulin Glarg,Human.Rec.Analog [Lantus Solostar] 50 units SUBCUT BEDTIME [History] Insulin Aspart [NovoLOG] 0 unit SUBCUT ASDIRECTED PRN 05/23/18 [History] Metoclopramide HCl 10 mg PO DAILY 12/14/18 [History] Spironolactone [Aldactone] 25 mg PO DAILY 12/14/18 [History] hydroCHLOROthiazide [Hydrochlorothiazide] 25 mg PO DAILY 12/14/18 [History] Aspirin [Halfprin] 81 mg PO DAILY #30 tab.ec 12/15/18 [Rx] atorvaSTATin [Lipitor] 80 mg PO BEDTIME #60 tablet 12/15/18 [Rx] Metoclopramide HCl [Reglan] 10 mg PO BID #10 tablet 03/09/19 [Rx] Past Medical History - Past Health History Medical/Surgical History: Denies Medical/Surgical History HEENT History: Reports: Impaired Vision Other HEENT History: blind right eye Cardiovascular History: Reports: Hypertension Respiratory History: Reports: None Gastrointestinal History: Reports: Gastritis, GERD, Hiatal Hernia Other Gastrointestinal History: h/o gastric ulcers, h/o hiatal hernia Genitourinary History: Reports: Chronic Renal Insuffiency, Diabetic Nephropathy Musculoskeletal History: Reports: Amputation Neurological History: Reports: Neuropathy, Peripheral Psychiatric History: Reports: Anxiety Endocrine/Metabolic History: Reports: Diabetes, Type I Other Endocrine/Metabolic History: brittle diabetic. 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 - Past Surgical History Head Surgeries/Procedures: Reports: None HEENT Surgical History: Reports: None Cardiovascular Surgical History: Reports: None Respiratory Surgical History: Reports: None GI Surgical History: Reports: EGD Male Surgical History: Reports: None Endocrine Surgical History: Reports: None Neurological Surgical History: Reports: None Musculoskeletal Surgical History: Reports: Amputation, Other (See Below) Other Musculoskeletal Surgeries/Procedures:: previous partial amputaton 5th toe rt foot. Below the knee amputation right knee Oncologic Surgical History: Reports: None Dermatological Surgical History: Reports: None Social & Family History - Family History Family Medical History: Noncontributory Cardiac: Reports: High Cholesterol, Hypertension OBGYN: Reports: Neurological: Reports: None - Caffeine Use Caffeine Use: Reports: None - Living Situation & Occupation Living situation: Reports: Single Occupation: Employed (Currently unemployed.) ED ROS GENERAL - Review of Systems Review Of Systems: ROS reveals no pertinent complaints other than HPI. ED EXAM, GENERAL - Physical Exam Exam: See Below (Dictation) Course - Vital Signs Last Recorded V/S: Last Vital Signs Temp 36.1 C 03/09/19 21:59 Pulse 111 H 03/09/19 23:39 Resp 22 H 03/09/19 23:39 BP 194/109 H 03/09/19 23:39 Pulse Ox 97 03/09/19 23:39 - Orders/Labs/Meds Labs: Laboratory Tests 03/09/19 03/09/19 03/09/19 Range/Units 22:09 22:09 22:09 WBC 12.02 H (4.0-11.0) K/uL RBC 5.34 (4.50-5.90) M/uL Hgb 11.4 L (13.0-17.0) g/dL Hct 34.9 L (38.0-50.0) % MCV 65.4 L (80.0-98.0) fL MCH 21.3 L (27.0-32.0) pg MCHC 32.7 (31.0-37.0) g/dL RDW Std Deviation 37.7 (28.0-62.0) fl RDW Coeff of Dania 16 H (11.0-15.0) % Plt Count 219 (150-400) K/uL MPV 10.60 (7.40-12.00) fL Neut % (Auto) 87.8 H (48.0-80.0) % Lymph % (Auto) 9.7 L (16.0-40.0) % [place] % (Auto) 2.2 (0.0-15.0) % Eos % (Auto) 0.0 (0.0-7.0) % Baso % (Auto) 0.3 (0.0-1.5) % Neut # (Auto) 10.5 H (1.4-5.7) K/uL Lymph # (Auto) 1.2 (0.6-2.4) K/uL [place] # (Auto) 0.3 (0.0-0.8) K/uL Eos # (Auto) 0.0 (0.0-0.7) K/uL Baso # (Auto) 0.0 (0.0-0.1) K/uL Nucleated RBC % 0.0 /100WBC Nucleated RBCs # 0 K/uL INR 0.95 ABG pH (7.35-7.45) ABG pCO2 (35-45) mmHG ABG pO2 (75-100) mmHG ABG HCO3 (22-26) mEq/L ABG Total CO2 ABG Base Excess (-2.0-2.0) Sodium 138 (136-148) mmol/L Potassium 4.1 (3.5-5.1) mmol/L Chloride 102 (98-107) mmol/L Carbon Dioxide 23.0 (21.0-32.0) mmol/L BUN 38 H (7.0-18.0) mg/dL Creatinine 2.3 H (0.8-1.3) mg/dL Est Cr Clr Drug Dosing 46.11 mL/min Estimated GFR (MDRD) 40.1 ml/min Glucose 447 H (74-106) mg/dL Calcium 9.1 (8.5-10.1) mg/dL Total Bilirubin 0.3 (0.2-1.0) mg/dL AST 41 H (15-37) IU/L ALT 101 H (14-63) IU/L Alkaline Phosphatase 150 H (46-116) U/L Total Protein 7.6 (6.4-8.2) g/dL Albumin 3.4 (3.4-5.0) g/dL Globulin 4.2 H (2.6-4.0) g/dL Albumin/Globulin Ratio 0.8 L (0.9-1.6) Lipase 38 L (73-393) U/L 03/09/19 Range/Units 23:29 WBC (4.0-11.0) K/uL RBC (4.50-5.90) M/uL Hgb (13.0-17.0) g/dL Hct (38.0-50.0) % MCV (80.0-98.0) fL MCH (27.0-32.0) pg MCHC (31.0-37.0) g/dL RDW Std Deviation (28.0-62.0) fl RDW Coeff of Dania (11.0-15.0) % Plt Count (150-400) K/uL MPV (7.40-12.00) fL Neut % (Auto) (48.0-80.0) % Lymph % (Auto) (16.0-40.0) % [place] % (Auto) (0.0-15.0) % Eos % (Auto) (0.0-7.0) % Baso % (Auto) (0.0-1.5) % Neut # (Auto) (1.4-5.7) K/uL Lymph # (Auto) (0.6-2.4) K/uL [place] # (Auto) (0.0-0.8) K/uL Eos # (Auto) (0.0-0.7) K/uL Baso # (Auto) (0.0-0.1) K/uL Nucleated RBC % /100WBC Nucleated RBCs # K/uL INR ABG pH 7.516 H (7.35-7.45) ABG pCO2 30 L (35-45) mmHG ABG pO2 86 (75-100) mmHG ABG HCO3 24 (22-26) mEq/L ABG Total CO2 21.8 ABG Base Excess 1.5 (-2.0-2.0) Sodium (136-148) mmol/L Potassium (3.5-5.1) mmol/L Chloride (98-107) mmol/L Carbon Dioxide (21.0-32.0) mmol/L BUN (7.0-18.0) mg/dL Creatinine (0.8-1.3) mg/dL Est Cr Clr Drug Dosing mL/min Estimated GFR (MDRD) ml/min Glucose (74-106) mg/dL Calcium (8.5-10.1) mg/dL Total Bilirubin (0.2-1.0) mg/dL AST (15-37) IU/L ALT (14-63) IU/L Alkaline Phosphatase (46-116) U/L Total Protein (6.4-8.2) g/dL Albumin (3.4-5.0) g/dL Globulin (2.6-4.0) g/dL Albumin/Globulin Ratio (0.9-1.6) Lipase (73-393) U/L Meds: Medications Discontinued Medications Generic Name Dose Route Start Last Admin Trade Name Freq PRN Reason Stop Dose Admin Diphenhydramine HCl 25 mg 03/09/19 22:00 03/09/19 22:17 Benadryl IVPUSH 03/09/19 22:01 25 mg ONETIME ONE Administration Hydralazine HCl 10 mg 03/09/19 23:22 03/09/19 23:26 Apresoline IVPUSH 03/09/19 23:23 10 mg ONETIME ONE Administration Sodium Chloride 1,000 mls @ 999 mls/hr 03/09/19 22:00 03/09/19 22:17 Normal Saline IV 03/09/19 23:00 999 mls/hr STAT ONE Administration Labetalol HCl 20 mg 03/10/19 00:00 Normodyne IVPUSH 03/10/19 00:01 ONETIME ONE Protocol Metoclopramide HCl 10 mg 03/09/19 22:00 03/09/19 22:17 Reglan IV 03/09/19 22:01 10 mg ONETIME ONE Administration Ondansetron HCl 4 mg 03/09/19 23:22 03/09/19 23:27 Zofran IVPUSH 03/09/19 23:23 4 mg ONETIME ONE Administration Departure - Departure Time of Disposition: 00:08 Disposition: Refer to Observation Condition: Good Clinical Impression: Chronic abdominal pain, History of diabetic gastroparesis, Renal insufficiency Hypertension Qualifiers: Hypertension type: essential hypertension Qualified Code(s): I10 - Essential ( primary) hypertension - Discharge Information Forms: ED Department Discharge Additional Instructions: []
--- NOTE | 2019-03-09 23:05 | CR ---
Indication: Abdomen pain Technique: Single-view chest and two view abdomen. Comparison: Chest x-ray 02/03/2019 and abdomen x-ray 10/22/2018 Findings: Single view of the chest shows no focal consolidation. There is no pleural effusion or pneumothorax the heart size is within normal limits. Views through the abdomen show it to be relatively gasless with a small amount of stool within the colon. No abnormal calcifications seen. Impression: 1. Somewhat nonspecific bowel gas pattern with a small amount of stool within the colon. 2. Normal single-view chest. Dictated by Kj Meyer MD @ Mar 09 2019 11:02PM Signed by Dr. Kj Meyer @ Mar 09 2019 11:03PM
[2019-03-09] MEDS ORDERED: Ondansetron 4 MG/2 ML SDV IVPUSH ONE (23:22)
[2019-03-09] MEDS ORDERED: hydrALAZINE 20 MG/ML SDV IVPUSH ONE (23:22)
[2019-03-10] MEDS ORDERED: Labetalol 100 MG/20 ML MDV IVPUSH ONE
[2019-03-10] MEDS ORDERED: Insulin Glargine,Human Rec. Analog 100 Units/ML 3 ML Pen SUBCUT STA (00:55)
[2019-03-10] MEDS ORDERED: Promethazine 25 MG/ML SDV IM PRN (00:56)
[2019-03-10] MEDS ORDERED: Ondansetron 4 MG/2 ML SDV IVPUSH PRN (00:56)
[2019-03-10] MEDS: Morphine 10 MG/ML Syringe IVPUSH PRN ×2 (01:30→04:30)
[2019-03-10] MEDS: Pantoprazole 40 MG Vial IV SCH (01:55)
[2019-03-10] MEDS: Insulin Aspart 100 Units/ML 3 ML Pen SUBCUT SCH ×4 (01:56→19:16)
[2019-03-10] MEDS: Sodium Chloride 0.9% 1,000 ML IV SCH ×2 (02:09→09:51)
--- NOTE | 2019-03-10 08:28 | PCM.HP ---
H&P History of Present Illness - General Date of Service: 03/10/19 Admit Problem/Dx: Admission Diagnosis/Problem Admission Diagnosis/Problem Chronic abdominal pain Source of Information: Patient History Limitations: Reports: No Limitations - History of Present Illness Initial Comments - Free Text/Narative: This 33 year old male with pmh of DM type 1, CKD, HTN, R BKA presented to the ED last evening x 2 with complaints of nausea, vomiting and abdominal pain. He reports this is happens every so often and when his nausea and vomiting is left untreated he starts having coffee ground emesis. He denies that now, but that is why he came in, to try avoid that. He reports he takes Reglan at home only for nausea as needed, not on a scheduled basis. Reports his BS are controlled recently and has been doing well. He denies fevers or chills. NO chest pain or SOB. reports diffuse abdominal pain with nausea and vomiting. No troubles with urinating and no black or bloody BMs. No diarrhea. In the ED WBC 12,000. BUN 38, cr 2.3.. CXR/abd obtained and negative, non specific bowel gas pattern. He was treated with Morphine and Reglan and admitted for abdominal pain. PCP, Dr Infante Abdomen Pain Score (Numeric/FACES): 9 - Related Data Allergies/Adverse Reactions: Allergies Allergy/AdvReac Type Severity Reaction Status Date / Time shrimp Allergy Severe Other Verified 03/10/19 08:44 iodine Allergy Unknown Anaphylactic Verified 03/10/19 08:44 Shock Penicillins Allergy Unknown Anaphylactic Verified 03/10/19 08:44 Shock shellfish derived Allergy Anaphylactic Verified 03/10/19 08:44 Shock gluten Allergy Unknown Muscle Uncoded 03/10/19 08:44 Aches Home Medications: Home Meds Omeprazole Magnesium [Prilosec Otc] 40 mg PO DAILY 07/15/17 [History] Doxazosin [Cardura] 2 mg PO BEDTIME 09/25/17 [History] Enalapril [Vasotec] 40 mg PO BEDTIME 09/25/17 [History] Torsemide 20 mg PO DAILY 09/25/17 [History] amLODIPine Besylate [Amlodipine Besylate] 10 mg PO BEDTIME 09/25/17 [History] Ferrous Sulfate 324 mg PO DAILY 01/20/18 [History] hydrALAZINE [Apresoline] 25 mg PO TID 30 Days #90 tablet 01/29/18 [Rx] Insulin Glarg,Human.Rec.Analog [Lantus Solostar] 50 units SUBCUT BEDTIME [History] Insulin Aspart [NovoLOG] 0 unit SUBCUT ASDIRECTED PRN 05/23/18 [History] Metoclopramide HCl 10 mg PO DAILY 12/14/18 [History] Spironolactone [Aldactone] 25 mg PO DAILY 12/14/18 [History] hydroCHLOROthiazide [Hydrochlorothiazide] 25 mg PO DAILY 12/14/18 [History] Aspirin [Halfprin] 81 mg PO DAILY #30 tab.ec 12/15/18 [Rx] atorvaSTATin [Lipitor] 80 mg PO BEDTIME #60 tablet 12/15/18 [Rx] Metoclopramide HCl [Reglan] 10 mg PO BID #10 tablet 03/09/19 [Rx] Past Medical History - Past Health History Medical/Surgical History: Denies Medical/Surgical History HEENT History: Reports: Impaired Vision Other HEENT History: blind right eye Cardiovascular History: Reports: Hypertension Respiratory History: Reports: None Gastrointestinal History: Reports: Gastritis, GERD, Hiatal Hernia Other Gastrointestinal History: h/o gastric ulcers, h/o hiatal hernia Genitourinary History: Reports: Chronic Renal Insuffiency, Diabetic Nephropathy Musculoskeletal History: Reports: Amputation Neurological History: Reports: Neuropathy, Peripheral Psychiatric History: Reports: Anxiety Endocrine/Metabolic History: Reports: Diabetes, Type I Other Endocrine/Metabolic History: brittle diabetic. History of hyperkalemia and DKA Hematologic History: Reports: Anemia Immunologic History: Reports: None Oncologic (Cancer) History: Reports: None Dermatologic History: Reports: Other (See Below) Other Dermatologic History: diabetic foot ulcers - Infectious Disease History Infectious Disease History: Reports: Chicken Pox, MRSA Other Infectious Disease History: 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 - Past Surgical History Head Surgeries/Procedures: Reports: None HEENT Surgical History: Reports: None Cardiovascular Surgical History: Reports: None Respiratory Surgical History: Reports: None GI Surgical History: Reports: EGD Male Surgical History: Reports: None Endocrine Surgical History: Reports: None Neurological Surgical History: Reports: None Musculoskeletal Surgical History: Reports: Amputation, Other (See Below) Other Musculoskeletal Surgeries/Procedures:: previous partial amputaton 5th toe rt foot. Below the knee amputation right knee Oncologic Surgical History: Reports: None Dermatological Surgical History: Reports: None Social & Family History - Family History Family Medical History: Noncontributory Cardiac: Reports: High Cholesterol, Hypertension OBGYN: Reports: Neurological: Reports: None - Tobacco Use Smoking Status *Q: Never Smoker Second Hand Smoke Exposure: No - Caffeine Use Caffeine Use: Reports: Coffee, Energy Drinks, Soda, Tea - Recreational Drug Use Recreational Drug Use: No - Living Situation & Occupation Living situation: Reports: Single Occupation: Employed (Currently unemployed.) H&P Review of Systems - Review of Systems: Review Of Systems: See Below General: Reports: Malaise. Denies: Fever, Chills HEENT: Reports: No Symptoms. Denies: Headaches, Hearing Changes, Sinus Congestion, Sore Throat Pulmonary: Reports: No Symptoms. Denies: Shortness of Breath, Wheezing, Cough, Sputum Cardiovascular: Reports: No Symptoms. Denies: Chest Pain, Lightheadedness, Blood Pressure Problem Gastrointestinal: Reports: Abdominal Pain, Decreased Appetite, Nausea, Vomiting. Denies: Black Stool, Bloody Stool, Flatus, Hematemesis Genitourinary: Reports: No Symptoms. Denies: Dysuria, Frequency, Burning Musculoskeletal: Reports: No Symptoms Skin: Reports: No Symptoms Psychiatric: Reports: No Symptoms Neurological: Reports: No Symptoms Hematologic/Lymphatic: Reports: Anemia Immunologic: Reports: No Symptoms Exam - Exam Exam: See Below - Vital Signs Vital Signs: Last Vital Signs Temp 98.7 F 03/10/19 07:35 Pulse 100 03/10/19 07:35 Resp 18 03/10/19 07:35 BP 136/90 03/10/19 07:35 Pulse Ox 98 03/10/19 07:35 Weight: 75.098 kg - Exam General: Alert, Oriented, Cooperative HEENT: Conjunctiva Clear, Mucosa Moist & [place] Lungs: Clear to Auscultation, Normal Respiratory Effort Cardiovascular: Regular Rate, Regular Rhythm, Normal S1, Normal S2 GI/Abdominal Exam: Normal Bowel Sounds, Soft, Non-Tender, No Distention, No Mass Back Exam: Normal Inspection, Full Range of Motion Extremities: Normal Inspection, Normal Range of Motion, Non-Tender, No Pedal Edema, Other (BKA R) Skin: Wound (blister to L 3rd toe, no S/s infection. Monitor.) Neuro Extensive - Mental Status: Alert, Oriented x3 Neuro Extensive - Motor, Sensory, Reflexes: CN II-XII Intact Psychiatric: Alert, Normal Affect, Normal Mood - Patient Data Lab Results Last 24 hrs: Laboratory Results - last 24 hr 03/09/19 03/09/19 03/09/19 Range/Units 22:09 22:09 22:09 WBC 12.02 H (4.0-11.0) K/uL RBC 5.34 (4.50-5.90) M/uL Hgb 11.4 L (13.0-17.0) g/dL Hct 34.9 L (38.0-50.0) % MCV 65.4 L (80.0-98.0) fL MCH 21.3 L (27.0-32.0) pg MCHC 32.7 (31.0-37.0) g/dL RDW Std Deviation 37.7 (28.0-62.0) fl RDW Coeff of Dania 16 H (11.0-15.0) % Plt Count 219 (150-400) K/uL MPV 10.60 (7.40-12.00) fL Neut % (Auto) 87.8 H (48.0-80.0) % Lymph % (Auto) 9.7 L (16.0-40.0) % Rock % (Auto) 2.2 (0.0-15.0) % Eos % (Auto) 0.0 (0.0-7.0) % Baso % (Auto) 0.3 (0.0-1.5) % Neut # (Auto) 10.5 H (1.4-5.7) K/uL Lymph # (Auto) 1.2 (0.6-2.4) K/uL Rock # (Auto) 0.3 (0.0-0.8) K/uL Eos # (Auto) 0.0 (0.0-0.7) K/uL Baso # (Auto) 0.0 (0.0-0.1) K/uL Nucleated RBC % 0.0 /100WBC Nucleated RBCs # 0 K/uL INR 0.95 ABG pH (7.35-7.45) ABG pCO2 (35-45) mmHG ABG pO2 (75-100) mmHG ABG HCO3 (22-26) mEq/L ABG Total CO2 ABG Base Excess (-2.0-2.0) Sodium 138 (136-148) mmol/L Potassium 4.1 (3.5-5.1) mmol/L Chloride 102 (98-107) mmol/L Carbon Dioxide 23.0 (21.0-32.0) mmol/L BUN 38 H (7.0-18.0) mg/dL Creatinine 2.3 H (0.8-1.3) mg/dL Est Cr Clr Drug Dosing 46.11 mL/min Estimated GFR (MDRD) 40.1 ml/min Glucose 447 H (74-106) mg/dL POC Glucose (60-110) mg/dL Calcium 9.1 (8.5-10.1) mg/dL Total Bilirubin 0.3 (0.2-1.0) mg/dL AST 41 H (15-37) IU/L ALT 101 H (14-63) IU/L Alkaline Phosphatase 150 H (46-116) U/L Troponin I (0.000-0.056) ng/mL Total Protein 7.6 (6.4-8.2) g/dL Albumin 3.4 (3.4-5.0) g/dL Globulin 4.2 H (2.6-4.0) g/dL Albumin/Globulin Ratio 0.8 L (0.9-1.6) Lipase 38 L (73-393) U/L 03/09/19 03/10/19 03/10/19 Range/Units 23:29 01:18 01:48 WBC (4.0-11.0) K/uL RBC (4.50-5.90) M/uL Hgb (13.0-17.0) g/dL Hct (38.0-50.0) % MCV (80.0-98.0) fL MCH (27.0-32.0) pg MCHC (31.0-37.0) g/dL RDW Std Deviation (28.0-62.0) fl RDW Coeff of Dania (11.0-15.0) % Plt Count (150-400) K/uL MPV (7.40-12.00) fL Neut % (Auto) (48.0-80.0) % Lymph % (Auto) (16.0-40.0) % Rock % (Auto) (0.0-15.0) % Eos % (Auto) (0.0-7.0) % Baso % (Auto) (0.0-1.5) % Neut # (Auto) (1.4-5.7) K/uL Lymph # (Auto) (0.6-2.4) K/uL Rock # (Auto) (0.0-0.8) K/uL Eos # (Auto) (0.0-0.7) K/uL Baso # (Auto) (0.0-0.1) K/uL Nucleated RBC % /100WBC Nucleated RBCs # K/uL INR ABG pH 7.516 H (7.35-7.45) ABG pCO2 30 L (35-45) mmHG ABG pO2 86 (75-100) mmHG ABG HCO3 24 (22-26) mEq/L ABG Total CO2 21.8 ABG Base Excess 1.5 (-2.0-2.0) Sodium (136-148) mmol/L Potassium (3.5-5.1) mmol/L Chloride (98-107) mmol/L Carbon Dioxide (21.0-32.0) mmol/L BUN (7.0-18.0) mg/dL Creatinine (0.8-1.3) mg/dL Est Cr Clr Drug Dosing mL/min Estimated GFR (MDRD) ml/min Glucose (74-106) mg/dL POC Glucose 435 H (60-110) mg/dL Calcium (8.5-10.1) mg/dL Total Bilirubin (0.2-1.0) mg/dL AST (15-37) IU/L ALT (14-63) IU/L Alkaline Phosphatase (46-116) U/L Troponin I < 0.050 (0.000-0.056) ng/mL Total Protein (6.4-8.2) g/dL Albumin (3.4-5.0) g/dL Globulin (2.6-4.0) g/dL Albumin/Globulin Ratio (0.9-1.6) Lipase (73-393) U/L 03/10/19 03/10/19 03/10/19 Range/Units 04:02 04:50 04:50 WBC 10.08 (4.0-11.0) K/uL RBC 4.56 (4.50-5.90) M/uL Hgb 9.5 L (13.0-17.0) g/dL Hct 30.3 L (38.0-50.0) % MCV 66.4 L (80.0-98.0) fL MCH 20.8 L (27.0-32.0) pg MCHC 31.4 (31.0-37.0) g/dL RDW Std Deviation 39.0 (28.0-62.0) fl RDW Coeff of Dania 16 H (11.0-15.0) % Plt Count 308 (150-400) K/uL MPV 10.80 (7.40-12.00) fL Neut % (Auto) 80.3 H (48.0-80.0) % Lymph % (Auto) 12.4 L (16.0-40.0) % Rock % (Auto) 7.2 (0.0-15.0) % Eos % (Auto) 0.0 (0.0-7.0) % Baso % (Auto) 0.1 (0.0-1.5) % Neut # (Auto) 8.1 H (1.4-5.7) K/uL Lymph # (Auto) 1.3 (0.6-2.4) K/uL Rock # (Auto) 0.7 (0.0-0.8) K/uL Eos # (Auto) 0.0 (0.0-0.7) K/uL Baso # (Auto) 0.0 (0.0-0.1) K/uL Nucleated RBC % 0.0 /100WBC Nucleated RBCs # 0 K/uL INR ABG pH (7.35-7.45) ABG pCO2 (35-45) mmHG ABG pO2 (75-100) mmHG ABG HCO3 (22-26) mEq/L ABG Total CO2 ABG Base Excess (-2.0-2.0) Sodium 146 (136-148) mmol/L Potassium 4.1 (3.5-5.1) mmol/L Chloride 110 H (98-107) mmol/L Carbon Dioxide 25.6 (21.0-32.0) mmol/L BUN 40 H (7.0-18.0) mg/dL Creatinine 2.6 H (0.8-1.3) mg/dL Est Cr Clr Drug Dosing 40.79 mL/min Estimated GFR (MDRD) 34.8 ml/min Glucose 176 H (74-106) mg/dL POC Glucose 223 H (60-110) mg/dL Calcium 8.4 L (8.5-10.1) mg/dL Total Bilirubin 0.2 (0.2-1.0) mg/dL AST 31 (15-37) IU/L ALT 80 H (14-63) IU/L Alkaline Phosphatase 123 H (46-116) U/L Troponin I (0.000-0.056) ng/mL Total Protein 6.4 (6.4-8.2) g/dL Albumin 2.8 L (3.4-5.0) g/dL Globulin 3.6 (2.6-4.0) g/dL Albumin/Globulin Ratio 0.8 L (0.9-1.6) Lipase (73-393) U/L 03/10/19 Range/Units 06:47 WBC (4.0-11.0) K/uL RBC (4.50-5.90) M/uL Hgb (13.0-17.0) g/dL Hct (38.0-50.0) % MCV (80.0-98.0) fL MCH (27.0-32.0) pg MCHC (31.0-37.0) g/dL RDW Std Deviation (28.0-62.0) fl RDW Coeff of Dania (11.0-15.0) % Plt Count (150-400) K/uL MPV (7.40-12.00) fL Neut % (Auto) (48.0-80.0) % Lymph % (Auto) (16.0-40.0) % Rock % (Auto) (0.0-15.0) % Eos % (Auto) (0.0-7.0) % Baso % (Auto) (0.0-1.5) % Neut # (Auto) (1.4-5.7) K/uL Lymph # (Auto) (0.6-2.4) K/uL Rock # (Auto) (0.0-0.8) K/uL Eos # (Auto) (0.0-0.7) K/uL Baso # (Auto) (0.0-0.1) K/uL Nucleated RBC % /100WBC Nucleated RBCs # K/uL INR ABG pH (7.35-7.45) ABG pCO2 (35-45) mmHG ABG pO2 (75-100) mmHG ABG HCO3 (22-26) mEq/L ABG Total CO2 ABG Base Excess (-2.0-2.0) Sodium (136-148) mmol/L Potassium (3.5-5.1) mmol/L Chloride (98-107) mmol/L Carbon Dioxide (21.0-32.0) mmol/L BUN (7.0-18.0) mg/dL Creatinine (0.8-1.3) mg/dL Est Cr Clr Drug Dosing mL/min Estimated GFR (MDRD) ml/min Glucose (74-106) mg/dL POC Glucose 79 (60-110) mg/dL Calcium (8.5-10.1) mg/dL Total Bilirubin (0.2-1.0) mg/dL AST (15-37) IU/L ALT (14-63) IU/L Alkaline Phosphatase (46-116) U/L Troponin I (0.000-0.056) ng/mL Total Protein (6.4-8.2) g/dL Albumin (3.4-5.0) g/dL Globulin (2.6-4.0) g/dL Albumin/Globulin Ratio (0.9-1.6) Lipase (73-393) U/L Result Diagrams: 03/10/19 04:50 03/10/19 04:50 *Q Meaningful Use (ADM) - VTE *Q VTE Pharmacological Contraindications *Q: Risk of Bleeding - Problem List (1) Gastroparesis SNOMED Code(s): 579163848 ICD Code: K31.84 - GASTROPARESIS Status: Suspected Current Visit: Yes (2) Abdominal pain SNOMED Code(s): 08877147 ICD Code: R10.9 - UNSPECIFIED ABDOMINAL PAIN Status: Acute Current Visit : No Onset Date: 09/28/14 (3) Anemia in chronic illness SNOMED Code(s): 291805172 ICD Code: D63.8 - ANEMIA IN OTHER CHRONIC DISEASES CLASSIFIED ELSEWHERE Status: Chronic Current Visit: Yes (4) Chronic abdominal pain SNOMED Code(s): 537712987 ICD Code: R10.9 - UNSPECIFIED ABDOMINAL PAIN; G89.29 - OTHER CHRONIC PAIN Status: Chronic Current Visit: Yes (5) Hypertension SNOMED Code(s): 14151395 ICD Code: I10 - ESSENTIAL (PRIMARY) HYPERTENSION Status: Chronic Current Visit: Yes Qualifiers: Hypertension type: essential hypertension Qualified Code(s): I10 - Essential (primary) hypertension (6) Diabetes mellitus type I SNOMED Code(s): 06683891 ICD Code: E10.9 - TYPE 1 DIABETES MELLITUS WITHOUT COMPLICATIONS Status: Chronic Current Visit: No Qualifiers: Diabetes mellitus complication status: with kidney complications Diabetes mellitus complication detail: with chronic kidney disease (7) History of GI bleed SNOMED Code(s): 496019715 ICD Code: Z87.19 - PERSONAL HISTORY OF OTHER DISEASES OF THE DIGESTIVE SYSTEM Status: Chronic Current Visit: No (8) Hx MRSA infection SNOMED Code(s): 008466568, 937320342 ICD Code: Z86.14 - PERSONAL HISTORY OF METHICILLIN RESIS STAPH INFECTION Status: Chronic Current Visit: No (9) Hx of gastroesophageal reflux (GERD) SNOMED Code(s): 23317131992732 ICD Code: Z87.19 - PERSONAL HISTORY OF OTHER DISEASES OF THE DIGESTIVE SYSTEM Status: Chronic Current Visit: No (10) S/P BKA (below knee amputation) unilateral SNOMED Code(s): 113335768, 72988445, 752813445 ICD Code: Z89.519 - ACQUIRED ABSENCE OF UNSPECIFIED LEG BELOW KNEE Status: Chronic Current Visit: No (11) History of CVA (cerebrovascular accident) SNOMED Code(s): 702353770 ICD Code: Z86.73 - PRSNL HX OF TIA (TIA), AND CEREB INFRC W/O RESID DEFICITS Status: Chronic Current Visit: Yes Problem List Initiated/Reviewed/Updated: Yes Orders Last 24hrs: Active Orders 24 hr Category Date Time Status Admission Status [Patient Status] [ADT] Stat ADT 03/10/19 00:09 Active Patient Status [ADT] Stat ADT 03/10/19 00:11 Active Antiembolic Devices [RC] PER UNIT ROUTINE Care 06/27/19 01:01 Active Communication Order [RC] STAT Care 03/10/19 01:58 Active Oxygen Therapy [RC] PRN Care 03/10/19 00:56 Active Up ad Ruth [RC] ASDIRECTED Care 03/10/19 00:56 Active VTE/DVT Education [RC] PER UNIT ROUTINE Care 03/10/19 00:56 Active Vital Signs [RC] Q4H Care 03/10/19 00:56 Active Nothing per Oral Now Diet [DIET] Diet 03/10/19 Breakfast Active Insulin Aspart [NovoLOG] Med 03/10/19 01:15 Active See Protocol SUBCUT Q6H Morphine Med 03/10/19 00:56 Active 2 mg IVPUSH Q3H PRN Ondansetron [Zofran] Med 03/10/19 00:56 Active 4 mg IVPUSH Q4H PRN Pantoprazole [ProTONIX IV] Med 03/10/19 01:00 Active 40 mg IV Q24H Promethazine [Phenergan] Med 03/10/19 00:56 Active 25 mg IM Q6H PRN Sodium Chloride 0.9% [Normal Saline] 1,000 ml Med 03/10/19 01:00 Active IV ASDIRECTED Sequential Compression Device [OM.PC] Per Unit Routine Oth 03/10/19 00:57 Ordered Resuscitation Status Routine Resus Stat 03/10/19 00:56 Ordered Medication Orders Sodium Chloride (Normal Saline) 1,000 mls @ 125 mls/hr IV ASDIRECTED PENDING SALE TO [facility] Last Admin: 03/10/19 02:09 Dose: 125 mls/hr Insulin Aspart (Novolog) 0 unit SUBCUT Q6H PENDING SALE TO [facility]; Protocol Last Admin: 03/10/19 07:39 Dose: Not Given Admin: 03/10/19 01:56 Dose: 10 units Morphine Sulfate (Morphine) 2 mg IVPUSH Q3H PRN PRN Reason: Pain (severe 7-10) Stop: 03/11/19 00:57 Last Admin: 03/10/19 04:30 Dose: 2 mg Admin: 03/10/19 01:30 Dose: 2 mg Ondansetron HCl (Zofran) 4 mg IVPUSH Q4H PRN PRN Reason: Nausea Pantoprazole Sodium (Protonix Iv) 40 mg IV Q24H PENDING SALE TO [facility] Last Admin: 03/10/19 01:55 Dose: 40 mg Promethazine HCl (Phenergan) 25 mg IM Q6H PRN PRN Reason: Nausea Last Admin: 03/10/19 04:09 Dose: 25 mg Assessment/Plan Comment:: This 33 year old male admitted with abdominal pain along with nausea and vomiting 1. Abdominal pain with N/V: Concern for gastroparesis, reports never been actually diagnosed with this, just suspected. Will order gastric emptying study. Highly suspected as Reglan has helped with nausea and pain. Will stop Reglan and Morphine as to not affect study tomorrow. Pain better today with no nausea, will start [place] diet today and monitor, NPO after midnight for study 2. Dm Type 1: Continue SSI Novolog. Hypoglycemia noted this am x 2, given D 50 x 2. Will start D5 1/2 NS 100 for now and monitor BS closely. HOLD Lantus for now. Received 25 units last evening. 3. OTILIA on CKD: Cr elevated overnight. Will continue IVFs, HOLD ELIANE for now. Monitor in am. Control BP. 4. HTN: Stable. Continue BP medications except for Torsemide and ELIANE. VTE prophyalxis: SCDs, high risk of bleeding. Dispo: 1-2 days.
[2019-03-10] MEDS ORDERED: Metoclopramide 10 MG/2 ML SDV IVPUSH SCH (08:30)
[2019-03-10] MEDS ORDERED: 50% Dextrose in Water 50 ML Syringe IVPUSH STA (09:37)
[2019-03-10] MEDS ORDERED: Dextrose 5%-0.45% NaCl 1,000 ML IV SCH (09:45)
[2019-03-10] MEDS: Hydrochlorothiazide 25 MG Tab PO SCH (10:20)
[2019-03-10] MEDS ORDERED: Sodium Chloride 0.45% 1,000 ML IV SCH (11:30)
[2019-03-10] MEDS ORDERED: Sodium Chloride 0.9% 1,000 ML IV SCH (11:30)
[2019-03-10] MEDS ORDERED: 50% Dextrose in Water 50 ML Syringe IVPUSH ONE ×2 (12:01→15:15)
[2019-03-10] MEDS: hydrALAZINE 25 MG Tab PO SCH ×2 (14:09→22:11)
[2019-03-10] MEDS: Dextrose 5%-0.45% NaCl 1,000 ML IV SCH ×2 (15:25→23:33)
[2019-03-10] MEDS ORDERED: amLODIPine 5 MG Tab PO SCH (21:00)
[2019-03-10] MEDS ORDERED: Doxazosin 2 MG Tab PO SCH (21:00)
[2019-03-10] MEDS ORDERED: atorvaSTATin 40 MG Tab PO SCH (21:00)
[2019-03-10] MEDS ORDERED: Insulin Glargine,Human Rec. Analog 100 Units/ML 3 ML Pen SUBCUT SCH (21:00)
[2019-03-11] MEDS: Pantoprazole 40 MG Vial IV SCH (01:00)
[2019-03-11] MEDS: hydrALAZINE 25 MG Tab PO SCH ×2 (06:11→13:44)
[2019-03-11] MEDS: Insulin Aspart 100 Units/ML 3 ML Pen SUBCUT SCH ×2 (07:31→12:31)
[2019-03-11] MEDS: Dextrose 5%-0.45% NaCl 1,000 ML IV SCH (07:42)
[2019-03-11] MEDS: Hydrochlorothiazide 25 MG Tab PO SCH (08:59)
--- NOTE | 2019-03-11 12:30 | NM ---
HISTORY: 33-year-old male. Evaluate gastric emptying. Abdominal pain. TECHNIQUE: 1.1 millicurie of technetium-99m sulfur colloid was administered orally in a meal of 2 eggs with 8 ounces of water. Images of the stomach and abdomen were obtained in the anterior and posterior projections for 90 minutes. Findings: By 90 minutes, there was approximately 35 percent gastric emptying. IMPRESSION: The half-time of gastric emptying is longer than 90 minutes. This is delayed. Dictated by Joe Nicholson MD @ Mar 11 2019 12:28PM Signed by Dr. Joe Nicholson @ Mar 11 2019 12:29PM
[2019-03-11] MEDS ORDERED: Metoclopramide 10 MG/2 ML SDV IVPUSH ONE (12:51)
--- NOTE | 2019-03-11 13:04 | PCM.DCSUM1 ---
Discharge Summary - Hospital Course Brief History: This 33 year old male with pmh of DM type 1, CKD, HTN, R BKA presented to the ED last evening x 2 with complaints of nausea, vomiting and abdominal pain. He reports this is happens every so often and when his nausea and vomiting is left untreated he starts having coffee ground emesis. He denies that now, but that is why he came in, to try avoid that. He reports he takes Reglan at home only for nausea as needed, not on a scheduled basis. Reports his BS are controlled recently and has been doing well. He denies fevers or chills. NO chest pain or SOB. reports diffuse abdominal pain with nausea and vomiting. No troubles with urinating and no black or bloody BMs. No diarrhea. In the ED WBC 12,000. BUN 38, cr 2.3.. CXR/abd obtained and negative, non specific bowel gas pattern. He was treated with Morphine and Reglan and admitted for abdominal pain. PCP, Dr Infante Diagnosis: Stroke: No - Discharge Data Discharge Date: 03/11/19 Discharge Disposition: Home, Self-Care 01 Condition: Stable - Discharge Diagnosis/Problem(s) (1) Gastroparesis SNOMED Code(s): 555544726 ICD Code: K31.84 - GASTROPARESIS Status: Acute Current Visit: Yes (2) Abdominal pain SNOMED Code(s): 66009139 ICD Code: R10.9 - UNSPECIFIED ABDOMINAL PAIN Status: Acute Current Visit : No Onset Date: 09/28/14 (3) Anemia in chronic illness SNOMED Code(s): 013252123 ICD Code: D63.8 - ANEMIA IN OTHER CHRONIC DISEASES CLASSIFIED ELSEWHERE Status: Chronic Current Visit: Yes (4) Chronic abdominal pain SNOMED Code(s): 021535571 ICD Code: R10.9 - UNSPECIFIED ABDOMINAL PAIN; G89.29 - OTHER CHRONIC PAIN Status: Chronic Current Visit: Yes (5) Hypertension SNOMED Code(s): 79361629 ICD Code: I10 - ESSENTIAL (PRIMARY) HYPERTENSION Status: Chronic Current Visit: Yes Qualifiers: Hypertension type: essential hypertension Qualified Code(s): I10 - Essential (primary) hypertension (6) Diabetes mellitus type I SNOMED Code(s): 07812468 ICD Code: E10.9 - TYPE 1 DIABETES MELLITUS WITHOUT COMPLICATIONS Status: Chronic Current Visit: No Qualifiers: Diabetes mellitus complication status: with kidney complications Diabetes mellitus complication detail: with chronic kidney disease (7) History of GI bleed SNOMED Code(s): 483439457 ICD Code: Z87.19 - PERSONAL HISTORY OF OTHER DISEASES OF THE DIGESTIVE SYSTEM Status: Chronic Current Visit: No (8) Hx MRSA infection SNOMED Code(s): 193430276, 781246902 ICD Code: Z86.14 - PERSONAL HISTORY OF METHICILLIN RESIS STAPH INFECTION Status: Chronic Current Visit: No (9) Hx of gastroesophageal reflux (GERD) SNOMED Code(s): 65283834904399 ICD Code: Z87.19 - PERSONAL HISTORY OF OTHER DISEASES OF THE DIGESTIVE SYSTEM Status: Chronic Current Visit: No (10) S/P BKA (below knee amputation) unilateral SNOMED Code(s): 580057325, 08322412, 953529290 ICD Code: Z89.519 - ACQUIRED ABSENCE OF UNSPECIFIED LEG BELOW KNEE Status: Chronic Current Visit: No (11) History of CVA (cerebrovascular accident) SNOMED Code(s): 250612294 ICD Code: Z86.73 - PRSNL HX OF TIA (TIA), AND CEREB INFRC W/O RESID DEFICITS Status: Chronic Current Visit: Yes - Patient Instructions Diet: Diabetic Diet Activity: As Tolerated Showering/Bathing: May Shower Notify Provider of: Fever, Increased Pain, Swelling and Redness, Drainage, Nausea and/or Vomiting - Discharge Plan *PRESCRIPTION DRUG MONITORING PROGRAM REVIEWED*: Not Applicable *COPY OF PRESCRIPTION DRUG MONITORING REPORT IN PATIENT IVELISSE: Not Applicable Prescriptions/Med Rec: Metoclopramide [Reglan] 5 mg PO TIDAC #90 tab Home Medications: Home Meds Omeprazole Magnesium [Prilosec Otc] 40 mg PO DAILY 07/15/17 [History] Doxazosin [Cardura] 2 mg PO BEDTIME 09/25/17 [History] Enalapril [Vasotec] 40 mg PO BEDTIME 09/25/17 [History] Torsemide 20 mg PO DAILY 09/25/17 [History] amLODIPine Besylate [Amlodipine Besylate] 10 mg PO BEDTIME 09/25/17 [History] Ferrous Sulfate 324 mg PO DAILY 01/20/18 [History] hydrALAZINE [Apresoline] 25 mg PO TID 30 Days #90 tablet 01/29/18 [Rx] Insulin Glarg,Human.Rec.Analog [Lantus Solostar] 50 units SUBCUT BEDTIME [History] Insulin Aspart [NovoLOG] 0 unit SUBCUT ASDIRECTED PRN 05/23/18 [History] Spironolactone [Aldactone] 25 mg PO DAILY 12/14/18 [History] hydroCHLOROthiazide [Hydrochlorothiazide] 25 mg PO DAILY 12/14/18 [History] Aspirin [Halfprin] 81 mg PO DAILY #30 tab.ec 12/15/18 [Rx] atorvaSTATin [Lipitor] 80 mg PO BEDTIME #60 tablet 12/15/18 [Rx] Metoclopramide [Reglan] 5 mg PO TIDAC #90 tab 03/11/19 [Rx] Patient Handouts: Metoclopramide tablets, Hypertension, [id number], Gastroparesis Referrals: Fitz Infante MD [Physician] - 03/24/19 9:00 am - Discharge Summary/Plan Comment DC Time >30 min.: No Discharge Summary/Plan Comment: Admitting Diagnoses: Abdominal pain N/V Suspected gastroparesis Discharge Diagnoses: Gastroparesis Other PMH: DM Type 1 CKD HTN R BKA GERD Hx CVA Waqas was admitted, given 2 doses of pain medications along with Reglan. He was feeling better after this. He wanted further evaluation for N/V, so gastric emptying study was ordered to fully evaluate for gastroparesis. This was completed today, which showed 35% gastric emptying after 90 minutes, which is delayed. He was educated on this and will be started on Reglan 5 mg 2-3 times daily, before the 3 largest meals of the day. He was educated to watch for signs of restlessness, anxiety and to notify PCP of these. He will be discharged home today, he is tolerating diet well and has no further nausea with Reglan administration. he is to continue all other medications as previously prescribed. he is to return to ED or clinic if concerns should arise. - General Info Date of Service: 03/11/19 Admission Dx/Problem (Free Text: Admission Diagnosis/Problem Admission Diagnosis/Problem Chronic abdominal pain Subjective Update: Dong well this morning, no pain. eager for study today. No other complaints. Post imaging today, he continues to due well, no nausea with eggs from study. eating lunch and requesting discharge home if he tolerates diet. Functional Status: Reports: Pain Controlled, Tolerating Diet, Ambulating, Urinating - Review of Systems General: Reports: No Symptoms. Denies: Weakness, Fatigue, Malaise HEENT: Reports: No Symptoms. Denies: Headaches, Sore Throat, Visual Changes Pulmonary: Reports: No Symptoms. Denies: Shortness of Breath Cardiovascular: Reports: No Symptoms. Denies: Chest Pain Gastrointestinal: Reports: No Symptoms. Denies: Abdominal Pain, Nausea, Vomiting Genitourinary: Reports: No Symptoms. Denies: Dysuria, Frequency, Burning Musculoskeletal: Reports: No Symptoms Skin: Reports: No Symptoms Neurological: Reports: No Symptoms Psychiatric: Reports: No Symptoms - Patient Data Vitals - Most Recent: Last Vital Signs Temp 98.5 F 03/11/19 08:00 Pulse 99 03/11/19 08:00 Resp 18 03/11/19 08:00 BP 166/91 H 03/11/19 08:00 Pulse Ox 98 03/11/19 08:00 Weight - Most Recent: 75.098 kg I&O - Last 24 hours: Intake & Output 03/10/19 03/11/19 03/11/19 22:59 06:59 14:59 Intake Total 2280 4034 Output Total 900 2005 Balance 1380 2029 Lab Results - Last 24 hrs: Laboratory Results - last 24 hr 03/10/19 03/10/19 03/10/19 Range/Units 15:14 15:50 17:21 WBC (4.0-11.0) K/uL RBC (4.50-5.90) M/uL Hgb (13.0-17.0) g/dL Hct (38.0-50.0) % MCV (80.0-98.0) fL MCH (27.0-32.0) pg MCHC (31.0-37.0) g/dL RDW Std Deviation (28.0-62.0) fl RDW Coeff of Dania (11.0-15.0) % Plt Count (150-400) K/uL MPV (7.40-12.00) fL Neut % (Auto) (48.0-80.0) % Lymph % (Auto) (16.0-40.0) % Wharton % (Auto) (0.0-15.0) % Eos % (Auto) (0.0-7.0) % Baso % (Auto) (0.0-1.5) % Neut # (Auto) (1.4-5.7) K/uL Lymph # (Auto) (0.6-2.4) K/uL Wharton # (Auto) (0.0-0.8) K/uL Eos # (Auto) (0.0-0.7) K/uL Baso # (Auto) (0.0-0.1) K/uL Nucleated RBC % /100WBC Nucleated RBCs # K/uL Sodium (136-148) mmol/L Potassium (3.5-5.1) mmol/L Chloride (98-107) mmol/L Carbon Dioxide (21.0-32.0) mmol/L BUN (7.0-18.0) mg/dL Creatinine (0.8-1.3) mg/dL Est Cr Clr Drug Dosing mL/min Estimated GFR (MDRD) ml/min Glucose (74-106) mg/dL POC Glucose 26 L 124 H 209 H (60-110) mg/dL Calcium (8.5-10.1) mg/dL Total Bilirubin (0.2-1.0) mg/dL AST (15-37) IU/L ALT (14-63) IU/L Alkaline Phosphatase (46-116) U/L Total Protein (6.4-8.2) g/dL Albumin (3.4-5.0) g/dL Globulin (2.6-4.0) g/dL Albumin/Globulin Ratio (0.9-1.6) 03/10/19 03/10/19 03/10/19 Range/Units 19:14 21:06 23:03 WBC (4.0-11.0) K/uL RBC (4.50-5.90) M/uL Hgb (13.0-17.0) g/dL Hct (38.0-50.0) % MCV (80.0-98.0) fL MCH (27.0-32.0) pg MCHC (31.0-37.0) g/dL RDW Std Deviation (28.0-62.0) fl RDW Coeff of Dania (11.0-15.0) % Plt Count (150-400) K/uL MPV (7.40-12.00) fL Neut % (Auto) (48.0-80.0) % Lymph % (Auto) (16.0-40.0) % Wharton % (Auto) (0.0-15.0) % Eos % (Auto) (0.0-7.0) % Baso % (Auto) (0.0-1.5) % Neut # (Auto) (1.4-5.7) K/uL Lymph # (Auto) (0.6-2.4) K/uL Wharton # (Auto) (0.0-0.8) K/uL Eos # (Auto) (0.0-0.7) K/uL Baso # (Auto) (0.0-0.1) K/uL Nucleated RBC % /100WBC Nucleated RBCs # K/uL Sodium (136-148) mmol/L Potassium (3.5-5.1) mmol/L Chloride (98-107) mmol/L Carbon Dioxide (21.0-32.0) mmol/L BUN (7.0-18.0) mg/dL Creatinine (0.8-1.3) mg/dL Est Cr Clr Drug Dosing mL/min Estimated GFR (MDRD) ml/min Glucose (74-106) mg/dL POC Glucose 175 H 137 H 123 H (60-110) mg/dL Calcium (8.5-10.1) mg/dL Total Bilirubin (0.2-1.0) mg/dL AST (15-37) IU/L ALT (14-63) IU/L Alkaline Phosphatase (46-116) U/L Total Protein (6.4-8.2) g/dL Albumin (3.4-5.0) g/dL Globulin (2.6-4.0) g/dL Albumin/Globulin Ratio (0.9-1.6) 03/11/19 03/11/19 03/11/19 Range/Units 01:05 02:58 05:05 WBC 8.85 (4.0-11.0) K/uL RBC 4.52 (4.50-5.90) M/uL Hgb 9.3 L (13.0-17.0) g/dL Hct 30.3 L (38.0-50.0) % MCV 67.0 L (80.0-98.0) fL MCH 20.6 L (27.0-32.0) pg MCHC 30.7 L (31.0-37.0) g/dL RDW Std Deviation 40.2 (28.0-62.0) fl RDW Coeff of Dania 16 H (11.0-15.0) % Plt Count 297 (150-400) K/uL MPV 10.60 (7.40-12.00) fL Neut % (Auto) 51.1 (48.0-80.0) % Lymph % (Auto) 39.0 (16.0-40.0) % Wharton % (Auto) 7.1 (0.0-15.0) % Eos % (Auto) 2.5 (0.0-7.0) % Baso % (Auto) 0.3 (0.0-1.5) % Neut # (Auto) 4.5 (1.4-5.7) K/uL Lymph # (Auto) 3.5 H (0.6-2.4) K/uL Wharton # (Auto) 0.6 (0.0-0.8) K/uL Eos # (Auto) 0.2 (0.0-0.7) K/uL Baso # (Auto) 0.0 (0.0-0.1) K/uL Nucleated RBC % 0.0 /100WBC Nucleated RBCs # 0 K/uL Sodium (136-148) mmol/L Potassium (3.5-5.1) mmol/L Chloride (98-107) mmol/L Carbon Dioxide (21.0-32.0) mmol/L BUN (7.0-18.0) mg/dL Creatinine (0.8-1.3) mg/dL Est Cr Clr Drug Dosing mL/min Estimated GFR (MDRD) ml/min Glucose (74-106) mg/dL POC Glucose 114 H 132 H (60-110) mg/dL Calcium (8.5-10.1) mg/dL Total Bilirubin (0.2-1.0) mg/dL AST (15-37) IU/L ALT (14-63) IU/L Alkaline Phosphatase (46-116) U/L Total Protein (6.4-8.2) g/dL Albumin (3.4-5.0) g/dL Globulin (2.6-4.0) g/dL Albumin/Globulin Ratio (0.9-1.6) 03/11/19 03/11/19 03/11/19 Range/Units 05:05 05:06 06:50 WBC (4.0-11.0) K/uL RBC (4.50-5.90) M/uL Hgb (13.0-17.0) g/dL Hct (38.0-50.0) % MCV (80.0-98.0) fL MCH (27.0-32.0) pg MCHC (31.0-37.0) g/dL RDW Std Deviation (28.0-62.0) fl RDW Coeff of Dania (11.0-15.0) % Plt Count (150-400) K/uL MPV (7.40-12.00) fL Neut % (Auto) (48.0-80.0) % Lymph % (Auto) (16.0-40.0) % Wharton % (Auto) (0.0-15.0) % Eos % (Auto) (0.0-7.0) % Baso % (Auto) (0.0-1.5) % Neut # (Auto) (1.4-5.7) K/uL Lymph # (Auto) (0.6-2.4) K/uL Wharton # (Auto) (0.0-0.8) K/uL Eos # (Auto) (0.0-0.7) K/uL Baso # (Auto) (0.0-0.1) K/uL Nucleated RBC % /100WBC Nucleated RBCs # K/uL Sodium 142 (136-148) mmol/L Potassium 4.0 (3.5-5.1) mmol/L Chloride 109 H (98-107) mmol/L Carbon Dioxide 24.7 (21.0-32.0) mmol/L BUN 28 H (7.0-18.0) mg/dL Creatinine 1.8 H (0.8-1.3) mg/dL Est Cr Clr Drug Dosing 58.92 mL/min Estimated GFR (MDRD) 53.3 ml/min Glucose 117 H (74-106) mg/dL POC Glucose 113 H 117 H (60-110) mg/dL Calcium 8.0 L (8.5-10.1) mg/dL Total Bilirubin 0.3 (0.2-1.0) mg/dL AST 45 H (15-37) IU/L ALT 61 (14-63) IU/L Alkaline Phosphatase 106 (46-116) U/L Total Protein 5.8 L (6.4-8.2) g/dL Albumin 2.5 L (3.4-5.0) g/dL Globulin 3.3 (2.6-4.0) g/dL Albumin/Globulin Ratio 0.8 L (0.9-1.6) 03/11/19 03/11/19 03/11/19 Range/Units 08:55 10:02 12:17 WBC (4.0-11.0) K/uL RBC (4.50-5.90) M/uL Hgb (13.0-17.0) g/dL Hct (38.0-50.0) % MCV (80.0-98.0) fL MCH (27.0-32.0) pg MCHC (31.0-37.0) g/dL RDW Std Deviation (28.0-62.0) fl RDW Coeff of Dania (11.0-15.0) % Plt Count (150-400) K/uL MPV (7.40-12.00) fL Neut % (Auto) (48.0-80.0) % Lymph % (Auto) (16.0-40.0) % Wharton % (Auto) (0.0-15.0) % Eos % (Auto) (0.0-7.0) % Baso % (Auto) (0.0-1.5) % Neut # (Auto) (1.4-5.7) K/uL Lymph # (Auto) (0.6-2.4) K/uL Wharton # (Auto) (0.0-0.8) K/uL Eos # (Auto) (0.0-0.7) K/uL Baso # (Auto) (0.0-0.1) K/uL Nucleated RBC % /100WBC Nucleated RBCs # K/uL Sodium (136-148) mmol/L Potassium (3.5-5.1) mmol/L Chloride (98-107) mmol/L Carbon Dioxide (21.0-32.0) mmol/L BUN (7.0-18.0) mg/dL Creatinine (0.8-1.3) mg/dL Est Cr Clr Drug Dosing mL/min Estimated GFR (MDRD) ml/min Glucose (74-106) mg/dL POC Glucose 139 H 172 H 228 H (60-110) mg/dL Calcium (8.5-10.1) mg/dL Total Bilirubin (0.2-1.0) mg/dL AST (15-37) IU/L ALT (14-63) IU/L Alkaline Phosphatase (46-116) U/L Total Protein (6.4-8.2) g/dL Albumin (3.4-5.0) g/dL Globulin (2.6-4.0) g/dL Albumin/Globulin Ratio (0.9-1.6) Med Orders - Current: Current Medications Amlodipine Besylate (Norvasc) 10 mg PO BEDTIME [facility] Last Admin: 03/10/19 20:29 Dose: 10 mg Atorvastatin Calcium (Lipitor) 80 mg PO BEDTIME [facility] Last Admin: 03/10/19 20:30 Dose: 80 mg Doxazosin Mesylate (Cardura) 2 mg PO BEDTIME [facility] Last Admin: 03/10/19 20:30 Dose: 2 mg Hydralazine HCl (Apresoline) 25 mg PO TID [facility] Last Admin: 03/11/19 06:11 Dose: 25 mg Hydrochlorothiazide (Hydrochlorothiazide) 25 mg PO DAILY [facility] Last Admin: 03/11/19 08:59 Dose: 25 mg Insulin Aspart (Novolog) 0 unit SUBCUT TIDAC [facility]; Protocol Last Admin: 03/11/19 12:31 Dose: 4 units Ondansetron HCl (Zofran) 4 mg IVPUSH Q4H PRN PRN Reason: Nausea Pantoprazole Sodium (Protonix Iv) 40 mg IV Q24H [facility] Last Admin: 03/11/19 01:00 Dose: 40 mg Promethazine HCl (Phenergan) 25 mg IM Q6H PRN PRN Reason: Nausea Last Admin: 03/10/19 04:09 Dose: 25 mg Discontinued Medications Dextrose/Water (Dextrose 50% In Water) 50 ml IVPUSH ONETIME STA Stop: 03/10/19 09:38 Last Admin: 03/10/19 09:45 Dose: 50 ml Dextrose/Water (Dextrose 50% In Water) 50 ml IVPUSH ONETIME ONE Stop: 03/10/19 12:02 Last Admin: 03/10/19 12:07 Dose: 50 ml Dextrose/Water (Dextrose 50% In Water) 50 ml IVPUSH ONETIME ONE Stop: 03/10/19 15:16 Last Admin: 03/10/19 15:20 Dose: 50 ml Diphenhydramine HCl (Benadryl) 25 mg IVPUSH ONETIME ONE Stop: 03/09/19 22:01 Last Admin: 03/09/19 22:17 Dose: 25 mg Hydralazine HCl (Apresoline) 10 mg IVPUSH ONETIME ONE Stop: 03/09/19 23:23 Last Admin: 03/09/19 23:26 Dose: 10 mg Sodium Chloride (Normal Saline) 1,000 mls @ 999 mls/hr IV STAT ONE Stop: 03/09/19 23:00 Last Admin: 03/09/19 22:17 Dose: 999 mls/hr Sodium Chloride (Normal Saline) 1,000 mls @ 125 mls/hr IV ASDIRECTED MICHAEL Last Admin: 03/10/19 09:51 Dose: 125 mls/hr Dextrose/Sodium Chloride (Dextrose 5%-1/2 Ns) 1,000 mls @ 100 mls/hr IV ASDIRECTED MICHAEL Sodium Chloride (Normal Saline) 1,000 mls @ 125 mls/hr IV ASDIRECTED MICHAEL Sodium Chloride (Sodium Chloride 0.45%) 1,000 mls @ 125 mls/hr IV ASDIRECTED MICHAEL Dextrose/Sodium Chloride (Dextrose 5%-1/2 Ns) 1,000 mls @ 125 mls/hr IV ASDIRECTED MICHAEL Last Admin: 03/11/19 07:42 Dose: 125 mls/hr Insulin Aspart (Novolog) 0 unit SUBCUT Q6H [facility]; Protocol Last Admin: 03/10/19 07:39 Dose: Not Given Insulin Glargine (Lantus Solostar) 25 units SUBCUT NOW STA Stop: 03/10/19 00:56 Last Admin: 03/10/19 01:54 Dose: 25 unit Insulin Glargine (Lantus Solostar) 12 units SUBCUT BEDTIME [facility] Labetalol HCl (Normodyne) 20 mg IVPUSH ONETIME ONE; Protocol Stop: 03/10/19 00:01 Last Admin: 03/10/19 00:16 Dose: 20 mg Metoclopramide HCl (Reglan) 10 mg IV ONETIME ONE Stop: 03/09/19 22:01 Last Admin: 03/09/19 22:17 Dose: 10 mg Metoclopramide HCl (Reglan) 10 mg IVPUSH Q8H [facility] Last Admin: 03/10/19 09:02 Dose: 10 mg Metoclopramide HCl (Reglan) 5 mg IVPUSH ONETIME ONE Stop: 03/11/19 12:52 Morphine Sulfate (Morphine) 2 mg IVPUSH Q3H PRN PRN Reason: Pain (severe 7-10) Stop: 03/11/19 00:57 Last Admin: 03/10/19 04:30 Dose: 2 mg Ondansetron HCl (Zofran) 4 mg IVPUSH ONETIME ONE Stop: 03/09/19 23:23 Last Admin: 03/09/19 23:27 Dose: 4 mg - Exam General: Reports: Alert, Oriented, Cooperative Lungs: Reports: Clear to Auscultation, Normal Respiratory Effort Cardiovascular: Reports: Regular Rate, Regular Rhythm GI/Abdominal Exam: Normal Bowel Sounds, Soft, Non-Tender, No Distention, No Mass Extremities: Normal Inspection, Normal Range of Motion, Non-Tender, No Pedal Edema, Other (R BKA, wrapped with ELIANE wrap) Wound/Incisions: Reports: Healing Well Neurological: Reports: No New Focal Deficit Psy/Mental Status: Reports: Alert, Normal Affect, Normal Mood *Q Meaningful Use (DIS) - VTE *Q VTE Pharmacological Contraindications *Q: Risk of Bleeding
[2019-03-11] MEDS ORDERED: Insulin Aspart 100 Units/ML 3 ML Pen SUBCUT ONE (14:50)
[2019-03-11 16:25] VITALS: BP 161/94
== END 2019-03-11 15:15 | disposition home or self-care (01) ==
LOC: MW.ED 21:56 → MW.MS 03-10 00:09
PROVIDERS: ADMIT Internal Medicine; ATTEND Internal Medicine
DX: E10.43 Type 1 diabetes mellitus with diabetic autonomic (poly)neuropathy (principal); K31.84 Gastroparesis; D63.8 Anemia in other chronic diseases classified elsewhere; I12.9 Hypertensive chronic kidney disease with stage 1 through stage 4 chronic kidney disease, or unspecified chronic kidney disease; E10.22 Type 1 diabetes mellitus with diabetic chronic kidney disease; N18.9 Chronic kidney disease, unspecified; G89.29 Other chronic pain; K21.9 Gastro-esophageal reflux disease without esophagitis; H54.7 Unspecified visual loss; Z87.19 Personal history of other diseases of the digestive system; Z86.14 Personal history of Methicillin resistant Staphylococcus aureus infection; Z89.519 Acquired absence of unspecified leg below knee; Z86.73 Personal history of transient ischemic attack (TIA), and cerebral infarction without residual deficits; Z79.4 Long term (current) use of insulin; Z79.82 Long term (current) use of aspirin; Z79.899 Other long term (current) drug therapy; Z88.0 Allergy status to penicillin; Z91.013 Allergy to seafood; Z91.018 Allergy to other foods; Z91.048 Other nonmedicinal substance allergy status; R11.2 Nausea with vomiting, unspecified; I10 Essential (primary) hypertension; E11.21 Type 2 diabetes mellitus with diabetic nephropathy
CPT/HCPCS: 36415; 36600; 74022; 78264; 80053; 81001; 82803; 82962; 83690; 84484; 85025; 85610; 96361; 96372; 96374; 96375; 96376; 99284; 99285; A9270; A9541; C9113; G0378; J0360; J1200; J1815; J2270; J2405; J2550; J2765; J3490; J7040; J7042; J7060

== ENCOUNTER 2019-03-26 09:13 | Inpatient (IN) | payer MEDICAID ==
--- NOTE | 2019-03-26 09:18 | EDM.PDOC ---
ED HPI GENERAL MEDICAL PROBLEM - General Chief Complaint: Gastrointestinal Problem Stated Complaint: CHEST PAIN AND SHORTNESS OF BREATH Time Seen by Provider: 03/26/19 09:40 Source of Information: Reports: Patient History Limitations: Reports: No Limitations - History of Present Illness INITIAL COMMENTS - FREE TEXT/NARRATIVE: History of present illness: []Patient complained 2 days of abdominal pain and states he started vomiting blood after midnight last night. The vomiting continues this morning. Review of systems: As per history of present illness and below otherwise all systems reviewed and negative. Past medical history: As per history of present illness and as reviewed below otherwise noncontributory. Surgical history: As per history of present illness and as reviewed below otherwise noncontributory. Social history: No reported history of drug or alcohol abuse. Family history: As per history of present illness and as reviewed below otherwise noncontributory. Physical exam: General: Well developed, well nourished in moderate painful distress, actively vomiting coffee-ground emesis HEENT: Atraumatic, normocephalic, pupils reactive, negative for conjunctival pallor or scleral icterus, mucous membranes moist, throat clear, neck supple, nontender, trachea midline. Lungs: Clear to auscultation, breath sounds equal bilaterally, chest nontender. Heart: S1S2, regular, negative for clicks, rubs, or JVD. Abdomen: NABS, Soft, nondistended, mild diffuse tenderness no rebound or guarding. Negative for masses or hepatosplenomegaly. Negative for costovertebral tenderness. Pelvis: Stable nontender. Genitourinary: Deferred. Rectal: Deferred. Extremities: Atraumatic, negative for cords or calf pain. Neurovascular unremarkable. Neuro: Awake, alert, oriented. Cranial nerves II through XII unremarkable. Cerebellum unremarkable. Motor and sensory unremarkable throughout. Exam nonfocal. Skin:warm and dry Diagnostics: CBC, CMP, lipase, lactate, type and screen, upright chest x-ray and KUB-negative Therapeutics: IV hydration, morphine, Zofran and Protonix, Reglan ED Course: Improved Consulted Dr. Barbosa states he would consult and to admit to hospitalist Consulted Dr. Doyle who agrees to admit this patient to the ICU Impression: Upper GI bleed Prescriptions: None Plan: Admit Definitive disposition and diagnosis as appropriate pending reevaluation and review of above. Abdominal Pain Score (Numeric/FACES): 8 - Related Data Allergies Allergy/AdvReac Type Severity Reaction Status Date / Time shrimp Allergy Severe Other Verified 03/26/19 09:24 iodine Allergy Unknown Anaphylactic Verified 03/26/19 09:24 Shock Penicillins Allergy Unknown Anaphylactic Verified 03/26/19 09:24 Shock shellfish derived Allergy Anaphylactic Verified 03/26/19 09:24 Shock gluten Allergy Unknown Muscle Uncoded 03/10/19 08:44 Aches Home Meds: Home Meds Omeprazole Magnesium [Prilosec Otc] 40 mg PO DAILY 07/15/17 [History] Doxazosin [Cardura] 2 mg PO BEDTIME 09/25/17 [History] Enalapril [Vasotec] 40 mg PO BEDTIME 09/25/17 [History] Torsemide 20 mg PO DAILY 09/25/17 [History] amLODIPine Besylate [Amlodipine Besylate] 10 mg PO BEDTIME 09/25/17 [History] Ferrous Sulfate 324 mg PO DAILY 01/20/18 [History] hydrALAZINE [Apresoline] 25 mg PO TID 30 Days #90 tablet 01/29/18 [Rx] Insulin Glarg,Human.Rec.Analog [Lantus Solostar] 50 units SUBCUT BEDTIME [History] Insulin Aspart [NovoLOG] 0 unit SUBCUT ASDIRECTED PRN 05/23/18 [History] Spironolactone [Aldactone] 25 mg PO DAILY 12/14/18 [History] hydroCHLOROthiazide [Hydrochlorothiazide] 25 mg PO DAILY 12/14/18 [History] Aspirin [Halfprin] 81 mg PO DAILY #30 tab.ec 12/15/18 [Rx] atorvaSTATin [Lipitor] 80 mg PO BEDTIME #60 tablet 12/15/18 [Rx] Metoclopramide [Reglan] 5 mg PO TIDAC #90 tab 03/11/19 [Rx] Past Medical History - Past Health History Medical/Surgical History: Denies Medical/Surgical History HEENT History: Reports: Impaired Vision Other HEENT History: blind right eye Cardiovascular History: Reports: Hypertension Respiratory History: Reports: None Gastrointestinal History: Reports: Gastritis, GERD, Hiatal Hernia Other Gastrointestinal History: h/o gastric ulcers, h/o hiatal hernia Genitourinary History: Reports: Chronic Renal Insuffiency, Diabetic Nephropathy Musculoskeletal History: Reports: Amputation Neurological History: Reports: Neuropathy, Peripheral Psychiatric History: Reports: Anxiety Endocrine/Metabolic History: Reports: Diabetes, Type I Other Endocrine/Metabolic History: brittle diabetic. History of hyperkalemia and DKA Hematologic History: Reports: Anemia Immunologic History: Reports: None Oncologic (Cancer) History: Reports: None Dermatologic History: Reports: Other (See Below) Other Dermatologic History: diabetic foot ulcers - Infectious Disease History Infectious Disease History: Reports: Chicken Pox, MRSA Other Infectious Disease History: 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 Social & Family History - Family History Family Medical History: Noncontributory Cardiac: Reports: High Cholesterol, Hypertension OBGYN: Reports: Neurological: Reports: None - Caffeine Use Caffeine Use: Reports: Coffee, Energy Drinks, Soda, Tea - Living Situation & Occupation Living situation: Reports: Single Occupation: Employed (Currently unemployed.) ED ROS GENERAL - Review of Systems Review Of Systems: See Below ED EXAM, GI/ABD - Physical Exam Exam: See Below Course - Vital Signs Last Recorded V/S: Last Vital Signs Temp 97.8 F 03/26/19 16:00 Pulse 100 03/26/19 17:00 Resp 13 03/26/19 17:00 BP 114/74 03/26/19 17:00 Pulse Ox 99 03/26/19 17:00 - Orders/Labs/Meds Orders: Active Orders 24 hr Category Date Time Status Patient Status [ADT] Stat ADT 03/26/19 11:19 Active Abdomen 1V Upright [CR] Stat Exams 03/26/19 10:00 Taken Chest 1V Frontal [CR] Stat Exams 03/26/19 10:00 Taken Sodium Chloride 0.9% [Saline Flush] Med 03/26/19 09:19 Active 10 ml FLUSH ASDIRECTED PRN Sodium Chloride 0.9% [Saline Flush] Med 03/26/19 09:19 Active 2.5 ml FLUSH ASDIRECTED PRN Saline Lock Insert [OM.PC] Stat Oth 03/26/19 09:18 Ordered Medication Orders Sodium Chloride (Normal Saline) 1,000 mls @ 125 mls/hr IV ASDIRECTED MICHAEL Last Admin: 03/26/19 13:52 Dose: 125 mls/hr Insulin Human Regular 100 unit (/ Sodium Chloride) 100 mls @ 2 mls/hr IV TITRATE MICHAEL; Protocol Insulin Aspart (Novolog) 0 unit SUBCUT Q6H MICHAEL; Protocol Last Admin: 03/26/19 16:04 Dose: Not Given Labetalol HCl (Normodyne) 10 mg IVPUSH Q4H PRN; Protocol PRN Reason: Hypertension Morphine Sulfate (Morphine) 2 mg IVPUSH Q2H PRN PRN Reason: Nausea Ondansetron HCl (Zofran) 4 mg IVPUSH Q4H PRN PRN Reason: Nausea Last Admin: 03/26/19 15:57 Dose: 4 mg Pantoprazole Sodium (Protonix Iv) 40 mg IV Q12HR MICHAEL Promethazine HCl (Phenergan) 25 mg IM Q6H PRN PRN Reason: Nausea Sodium Chloride (Saline Flush) 10 ml FLUSH ASDIRECTED PRN PRN Reason: Keep Vein Open Sodium Chloride (Saline Flush) 2.5 ml FLUSH ASDIRECTED PRN PRN Reason: Keep Vein Open Labs: Laboratory Tests 03/26/19 03/26/19 03/26/19 Range/Units 09:22 09:22 09:22 WBC 10.45 (4.0-11.0) K/uL RBC 5.23 (4.50-5.90) M/uL Hgb 11.0 L (13.0-17.0) g/dL Hct 34.8 L (38.0-50.0) % MCV 66.5 L (80.0-98.0) fL MCH 21.0 L (27.0-32.0) pg MCHC 31.6 (31.0-37.0) g/dL RDW Std Deviation 39.2 (28.0-62.0) fl RDW Coeff of Dania 16 H (11.0-15.0) % Plt Count 421 H (150-400) K/uL MPV 10.70 (7.40-12.00) fL Neut % (Auto) 69.6 (48.0-80.0) % Lymph % (Auto) 23.1 (16.0-40.0) % [place] % (Auto) 5.3 (0.0-15.0) % Eos % (Auto) 1.5 (0.0-7.0) % Baso % (Auto) 0.5 (0.0-1.5) % Neut # (Auto) 7.3 H (1.4-5.7) K/uL Lymph # (Auto) 2.4 (0.6-2.4) K/uL [place] # (Auto) 0.6 (0.0-0.8) K/uL Eos # (Auto) 0.2 (0.0-0.7) K/uL Baso # (Auto) 0.1 (0.0-0.1) K/uL Nucleated RBC % 0.0 /100WBC Nucleated RBCs # 0 K/uL Lactate (0.20-2.00) mmol/L Sodium 141 (136-148) mmol/L Potassium 4.3 (3.5-5.1) mmol/L Chloride 104 (98-107) mmol/L Carbon Dioxide 25.6 (21.0-32.0) mmol/L BUN 33 H (7.0-18.0) mg/dL Creatinine 2.4 H (0.8-1.3) mg/dL Est Cr Clr Drug Dosing TNP Estimated GFR (MDRD) 38.2 ml/min Glucose 339 H (74-106) mg/dL Calcium 8.7 (8.5-10.1) mg/dL Total Bilirubin 0.2 (0.2-1.0) mg/dL AST 22 (15-37) IU/L ALT 35 (14-63) IU/L Alkaline Phosphatase 144 H (46-116) U/L Total Protein 7.2 (6.4-8.2) g/dL Albumin 3.0 L (3.4-5.0) g/dL Globulin 4.2 H (2.6-4.0) g/dL Albumin/Globulin Ratio 0.7 L (0.9-1.6) Lipase 31 L (73-393) U/L Ketones NEGATIVE (NEG) Blood Type Antibody Screen 03/26/19 03/26/19 Range/Units 09:22 09:22 WBC (4.0-11.0) K/uL RBC (4.50-5.90) M/uL Hgb (13.0-17.0) g/dL Hct (38.0-50.0) % MCV (80.0-98.0) fL MCH (27.0-32.0) pg MCHC (31.0-37.0) g/dL RDW Std Deviation (28.0-62.0) fl RDW Coeff of Dania (11.0-15.0) % Plt Count (150-400) K/uL MPV (7.40-12.00) fL Neut % (Auto) (48.0-80.0) % Lymph % (Auto) (16.0-40.0) % [place] % (Auto) (0.0-15.0) % Eos % (Auto) (0.0-7.0) % Baso % (Auto) (0.0-1.5) % Neut # (Auto) (1.4-5.7) K/uL Lymph # (Auto) (0.6-2.4) K/uL [place] # (Auto) (0.0-0.8) K/uL Eos # (Auto) (0.0-0.7) K/uL Baso # (Auto) (0.0-0.1) K/uL Nucleated RBC % /100WBC Nucleated RBCs # K/uL Lactate 2.0 (0.20-2.00) mmol/L Sodium (136-148) mmol/L Potassium (3.5-5.1) mmol/L Chloride (98-107) mmol/L Carbon Dioxide (21.0-32.0) mmol/L BUN (7.0-18.0) mg/dL Creatinine (0.8-1.3) mg/dL Est Cr Clr Drug Dosing Estimated GFR (MDRD) ml/min Glucose (74-106) mg/dL Calcium (8.5-10.1) mg/dL Total Bilirubin (0.2-1.0) mg/dL AST (15-37) IU/L ALT (14-63) IU/L Alkaline Phosphatase (46-116) U/L Total Protein (6.4-8.2) g/dL Albumin (3.4-5.0) g/dL Globulin (2.6-4.0) g/dL Albumin/Globulin Ratio (0.9-1.6) Lipase (73-393) U/L Ketones (NEG) Blood Type O POSITIVE Antibody Screen NEGATIVE Meds: Medications Generic Name Dose Route Start Last Admin Trade Name Freq PRN Reason Stop Dose Admin Sodium Chloride 1,000 mls @ 125 mls/hr 03/26/19 13:45 03/26/19 13:52 Normal Saline IV 125 mls/hr ASDIRECTED MICHAEL Administration Insulin Human Regular 100 unit 100 mls @ 2 mls/hr 03/26/19 17:00 / Sodium Chloride IV TITRATE MICHAEL Protocol 2 UNIT/HR Insulin Aspart 0 unit 03/26/19 16:00 03/26/19 16:04 Novolog SUBCUT Not Given Q6H MICHAEL Protocol Labetalol HCl 10 mg 03/26/19 16:49 Normodyne IVPUSH Q4H PRN Hypertension Protocol Morphine Sulfate 2 mg 03/26/19 13:38 Morphine IVPUSH Q2H PRN Nausea Ondansetron HCl 4 mg 03/26/19 13:32 03/26/19 15:57 Zofran IVPUSH 4 mg Q4H PRN Administration Nausea Pantoprazole Sodium 40 mg 03/26/19 21:00 Protonix Iv IV Q12HR [facility] Promethazine HCl 25 mg 03/26/19 13:32 Phenergan IM Q6H PRN Nausea Sodium Chloride 10 ml 03/26/19 09:19 Saline Flush FLUSH ASDIRECTED PRN Keep Vein Open Sodium Chloride 2.5 ml 03/26/19 09:19 Saline Flush FLUSH ASDIRECTED PRN Keep Vein Open Discontinued Medications Generic Name Dose Route Start Last Admin Trade Name Lynn PRN Reason Stop Dose Admin Hydromorphone HCl 0.5 mg 03/26/19 09:57 03/26/19 10:18 Dilaudid IVPUSH 03/26/19 09:58 Not Given ONETIME ONE Hydromorphone HCl 0.5 mg 03/26/19 10:06 03/26/19 10:14 Dilaudid IVPUSH 03/26/19 10:07 0.5 mg ONETIME ONE Administration Hydromorphone HCl 0.5 mg 03/26/19 11:09 03/26/19 11:21 Dilaudid IVPUSH 03/26/19 11:10 0.5 mg ONETIME ONE Administration Sodium Chloride 1,000 mls @ 999 mls/hr 03/26/19 09:19 03/26/19 09:25 Normal Saline IV 03/26/19 10:19 999 mls/hr .Bolus ONE Administration Sodium Chloride Confirm 03/26/19 09:30 03/26/19 10:23 Normal Saline Administered 03/26/19 09:31 Not Given Dose 20 mls @ as directed .ROUTE .STK-MED ONE Insulin Aspart 0 unit 03/26/19 14:00 03/26/19 14:35 Novolog SUBCUT Not Given Q6HR MICHAEL Protocol Insulin Aspart 10 unit 03/26/19 14:30 03/26/19 14:20 Novolog SUBCUT 03/26/19 14:31 10 unit STAT ONE Administration Insulin Aspart 0 unit 03/26/19 15:00 03/26/19 16:07 Novolog SUBCUT Not Given Q6H MICHAEL Protocol Insulin Aspart 10 unit 03/26/19 16:00 03/26/19 16:03 Novolog SUBCUT 03/26/19 16:05 10 units STAT MICHAEL Administration Labetalol HCl Confirm 03/26/19 09:43 03/26/19 10:23 Normodyne Administered 03/26/19 09:44 Not Given Dose 100 mg .ROUTE .STK-MED ONE Labetalol HCl 20 mg 03/26/19 09:47 03/26/19 10:13 Normodyne IVPUSH 03/26/19 09:48 10 mg ONETIME ONE Administration Protocol Metoclopramide HCl 10 mg 03/26/19 11:09 03/26/19 11:21 Reglan IVPUSH 03/26/19 11:10 10 mg ONETIME ONE Administration Morphine Sulfate 4 mg 03/26/19 09:19 03/26/19 09:25 Morphine IVPUSH 03/26/19 09:20 4 mg ONETIME ONE Administration Ondansetron HCl 4 mg 03/26/19 09:19 03/26/19 09:25 Zofran IVPUSH 03/26/19 09:20 4 mg ONETIME ONE Administration Pantoprazole Sodium 80 mg 03/26/19 09:20 03/26/19 09:39 Protonix Iv IVPUSH 03/26/19 09:21 80 mg .BOLUS ONE Administration Departure - Departure Time of Disposition: 11:30 Disposition: Admitted As Inpatient 67 Condition: Good Clinical Impression: GI bleed Qualifiers: GI bleed type/associated pathology: unspecified gastrointestinal hemorrhage type Qualified Code(s): K92.2 - Gastrointestinal hemorrhage, unspecified Vomiting Qualifiers: Vomiting type: unspecified Vomiting Intractability: non-intractable Nausea presence: with nausea Qualified Code(s): R11.2 - Nausea with vomiting, unspecified - Discharge Information *PRESCRIPTION DRUG MONITORING PROGRAM REVIEWED*: No *COPY OF PRESCRIPTION DRUG MONITORING REPORT IN PATIENT IVELISSE: No - My Orders Last 24 Hours: My Active Orders 03/26/19 09:18 Saline Lock Insert [OM.PC] Stat 03/26/19 09:19 Sodium Chloride 0.9% [Saline Flush] 10 ml FLUSH ASDIRECTED PRN Sodium Chloride 0.9% [Saline Flush] 2.5 ml FLUSH ASDIRECTED PRN 03/26/19 10:00 Abdomen 1V Upright [CR] Stat Chest 1V Frontal [CR] Stat 03/26/19 11:19 Patient Status [ADT] Stat - Assessment/Plan Last 24 Hours: My Active Orders 03/26/19 09:18 Saline Lock Insert [OM.PC] Stat 03/26/19 09:19 Sodium Chloride 0.9% [Saline Flush] 10 ml FLUSH ASDIRECTED PRN Sodium Chloride 0.9% [Saline Flush] 2.5 ml FLUSH ASDIRECTED PRN 03/26/19 10:00 Abdomen 1V Upright [CR] Stat Chest 1V Frontal [CR] Stat 03/26/19 11:19 Patient Status [ADT] Stat
[2019-03-26] MEDS ORDERED: Ondansetron 4 MG/2 ML SDV IVPUSH ONE (09:19)
[2019-03-26] MEDS ORDERED: Sodium Chloride 0.9% 2.5 ML Syringe FLUSH PRN (09:19)
[2019-03-26] MEDS ORDERED: Sodium Chloride 0.9% 1,000 ML IV ONE (09:19)
[2019-03-26] MEDS ORDERED: Morphine 4 MG/ML Syringe IVPUSH ONE (09:19)
[2019-03-26] MEDS ORDERED: Sodium Chloride 0.9% 10 ML Syringe FLUSH PRN (09:19)
[2019-03-26] MEDS ORDERED: Pantoprazole 40 MG Vial IVPUSH ONE (09:20)
[2019-03-26] MEDS ORDERED: Sodium Chloride 0.9% 20 ML ONE (09:30)
[2019-03-26] MEDS ORDERED: Labetalol 100 MG/20 ML MDV ONE (09:43)
[2019-03-26] MEDS: Labetalol 100 MG/20 ML MDV IVPUSH ONE ×2 (09:48→10:13)
[2019-03-26] MEDS ORDERED: HYDROmorphone 2 MG/ML Syringe IVPUSH ONE (09:57)
[2019-03-26 10:00] LABS: CHLORIDE,CL 104 mmol/L (98-107); SODIUM,NA 141 mmol/L (136-148)
[2019-03-26] MEDS ORDERED: HYDROmorphone 1 MG/ML Syringe IVPUSH ONE ×2 (10:06→11:09)
[2019-03-26] MEDS ORDERED: Metoclopramide 10 MG/2 ML SDV IVPUSH ONE (11:09)
[2019-03-26] MEDS ORDERED: Promethazine 25 MG/ML SDV IM PRN (13:32)
--- NOTE | 2019-03-26 13:40 | PCM.HP ---
H&P History of Present Illness - General Date of Service: 03/26/19 Admit Problem/Dx: Admission Diagnosis/Problem Admission Diagnosis/Problem GI bleed not requiring more than 4 units of blood in 24 hours, ICU, or surgery - History of Present Illness Initial Comments - Free Text/Narative: 33 yo male e with pmh of DM type 1, CKD, HTN, R BKA, and gastroparesis who presented with three day history of nausea, vomiting and epigatric abdominal pain. This morning patient reports he has several coffee ground emesis. He denies any fevers, blood in stool, or diarrhea. Abdominal Pain Score (Numeric/FACES): 8 - Related Data Allergies/Adverse Reactions: Allergies Allergy/AdvReac Type Severity Reaction Status Date / Time shrimp Allergy Severe Other Verified 03/26/19 09:24 iodine Allergy Unknown Anaphylactic Verified 03/26/19 09:24 Shock Penicillins Allergy Unknown Anaphylactic Verified 03/26/19 09:24 Shock shellfish derived Allergy Anaphylactic Verified 03/26/19 09:24 Shock gluten Allergy Unknown Muscle Uncoded 03/10/19 08:44 Aches Home Medications: Home Meds Omeprazole Magnesium [Prilosec Otc] 40 mg PO DAILY 07/15/17 [History] Doxazosin [Cardura] 2 mg PO BEDTIME 09/25/17 [History] Enalapril [Vasotec] 40 mg PO BEDTIME 09/25/17 [History] Torsemide 20 mg PO DAILY 09/25/17 [History] amLODIPine Besylate [Amlodipine Besylate] 10 mg PO BEDTIME 09/25/17 [History] Ferrous Sulfate 324 mg PO DAILY 01/20/18 [History] hydrALAZINE [Apresoline] 25 mg PO TID 30 Days #90 tablet 01/29/18 [Rx] Insulin Glarg,Human.Rec.Analog [Lantus Solostar] 50 units SUBCUT BEDTIME [History] Insulin Aspart [NovoLOG] 0 unit SUBCUT ASDIRECTED PRN 05/23/18 [History] Spironolactone [Aldactone] 25 mg PO DAILY 12/14/18 [History] hydroCHLOROthiazide [Hydrochlorothiazide] 25 mg PO DAILY 12/14/18 [History] Aspirin [Halfprin] 81 mg PO DAILY #30 tab.ec 12/15/18 [Rx] atorvaSTATin [Lipitor] 80 mg PO BEDTIME #60 tablet 12/15/18 [Rx] Metoclopramide [Reglan] 5 mg PO TIDAC #90 tab 03/11/19 [Rx] Past Medical History - Past Health History Medical/Surgical History: Denies Medical/Surgical History HEENT History: Reports: Impaired Vision Other HEENT History: blind right eye Cardiovascular History: Reports: Hypertension Respiratory History: Reports: None Gastrointestinal History: Reports: Gastritis, GERD, Hiatal Hernia, Other (See Below) Other Gastrointestinal History: gastroparesis Genitourinary History: Reports: Chronic Renal Insuffiency, Diabetic Nephropathy Musculoskeletal History: Reports: Amputation Neurological History: Reports: Neuropathy, Peripheral Psychiatric History: Reports: Anxiety Endocrine/Metabolic History: Reports: Diabetes, Type I Other Endocrine/Metabolic History: brittle diabetic. History of hyperkalemia and DKA Hematologic History: Reports: Anemia Immunologic History: Reports: None Oncologic (Cancer) History: Reports: None Dermatologic History: Reports: Other (See Below) Other Dermatologic History: diabetic foot ulcers - Infectious Disease History Infectious Disease History: Reports: Chicken Pox, MRSA Other Infectious Disease History: 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 - Past Surgical History Head Surgeries/Procedures: Reports: None Social & Family History - Family History Family Medical History: Noncontributory Cardiac: Reports: High Cholesterol, Hypertension OBGYN: Reports: Neurological: Reports: None - Tobacco Use Smoking Status *Q: Never Smoker - Caffeine Use Caffeine Use: Reports: Coffee, Energy Drinks, Soda, Tea - Recreational Drug Use Recreational Drug Use: No - Living Situation & Occupation Living situation: Reports: Single Occupation: Employed (Currently unemployed.) H&P Review of Systems - Review of Systems: Review Of Systems: ROS reveals no pertinent complaints other than HPI. Exam - Exam Exam: See Below - Vital Signs Vital Signs: Last Vital Signs Temp 36.4 C 03/26/19 12:00 Pulse 94 03/26/19 13:00 Resp 8 L 03/26/19 13:00 BP 105/59 L 03/26/19 13:00 Pulse Ox 94 L 03/26/19 13:00 Weight: 77.111 kg - Exam General: Alert, Oriented HEENT: Conjunctiva Clear Lungs: Clear to Auscultation, Normal Respiratory Effort Cardiovascular: Regular Rate, Regular Rhythm GI/Abdominal Exam: Normal Bowel Sounds, Soft, Non-Tender, No Distention Rectal (Males) Exam: Normal Exam, Normal Rectal Tone, Other (no stool). No: Black Stool, Bloody Stool Extremities: Non-Tender, No Pedal Edema Skin: Warm, Dry, Intact Neurological: Cranial Nerves Intact. No: Focal Deficit - Patient Data Lab Results Last 24 hrs: Laboratory Results - last 24 hr 03/26/19 03/26/19 03/26/19 Range/Units 09:22 09:22 09:22 WBC 10.45 (4.0-11.0) K/uL RBC 5.23 (4.50-5.90) M/uL Hgb 11.0 L (13.0-17.0) g/dL Hct 34.8 L (38.0-50.0) % MCV 66.5 L (80.0-98.0) fL MCH 21.0 L (27.0-32.0) pg MCHC 31.6 (31.0-37.0) g/dL RDW Std Deviation 39.2 (28.0-62.0) fl RDW Coeff of Dania 16 H (11.0-15.0) % Plt Count 421 H (150-400) K/uL MPV 10.70 (7.40-12.00) fL Neut % (Auto) 69.6 (48.0-80.0) % Lymph % (Auto) 23.1 (16.0-40.0) % [place] % (Auto) 5.3 (0.0-15.0) % Eos % (Auto) 1.5 (0.0-7.0) % Baso % (Auto) 0.5 (0.0-1.5) % Neut # (Auto) 7.3 H (1.4-5.7) K/uL Lymph # (Auto) 2.4 (0.6-2.4) K/uL [place] # (Auto) 0.6 (0.0-0.8) K/uL Eos # (Auto) 0.2 (0.0-0.7) K/uL Baso # (Auto) 0.1 (0.0-0.1) K/uL Nucleated RBC % 0.0 /100WBC Nucleated RBCs # 0 K/uL Lactate (0.20-2.00) mmol/L Sodium 141 (136-148) mmol/L Potassium 4.3 (3.5-5.1) mmol/L Chloride 104 (98-107) mmol/L Carbon Dioxide 25.6 (21.0-32.0) mmol/L BUN 33 H (7.0-18.0) mg/dL Creatinine 2.4 H (0.8-1.3) mg/dL Est Cr Clr Drug Dosing TNP Estimated GFR (MDRD) 38.2 ml/min Glucose 339 H (74-106) mg/dL Calcium 8.7 (8.5-10.1) mg/dL Total Bilirubin 0.2 (0.2-1.0) mg/dL AST 22 (15-37) IU/L ALT 35 (14-63) IU/L Alkaline Phosphatase 144 H (46-116) U/L Total Protein 7.2 (6.4-8.2) g/dL Albumin 3.0 L (3.4-5.0) g/dL Globulin 4.2 H (2.6-4.0) g/dL Albumin/Globulin Ratio 0.7 L (0.9-1.6) Lipase 31 L (73-393) U/L Urine Color Urine Appearance Urine pH (5.0-8.0) Ur Specific [place] (1.001-1.035) Urine Protein (NEGATIVE) mg/dL Urine Glucose (UA) (NEGATIVE) mg/dL Urine Ketones (NEGATIVE) mg/dL Urine Occult Blood (NEGATIVE) Urine Nitrite (NEGATIVE) Urine Bilirubin (NEGATIVE) Urine Urobilinogen (<2.0) EU/dL Ur Leukocyte Esterase (NEGATIVE) Urine RBC (0-2/HPF) Urine WBC (0-5/HPF) Ur Epithelial Cells (NONE-FEW) Urine Bacteria (NEGATIVE) Urine Mucus (NONE-MOD) Ketones NEGATIVE (NEG) Blood Type Antibody Screen 03/26/19 03/26/19 03/26/19 Range/Units 09:22 09:22 12:17 WBC (4.0-11.0) K/uL RBC (4.50-5.90) M/uL Hgb (13.0-17.0) g/dL Hct (38.0-50.0) % MCV (80.0-98.0) fL MCH (27.0-32.0) pg MCHC (31.0-37.0) g/dL RDW Std Deviation (28.0-62.0) fl RDW Coeff of Dania (11.0-15.0) % Plt Count (150-400) K/uL MPV (7.40-12.00) fL Neut % (Auto) (48.0-80.0) % Lymph % (Auto) (16.0-40.0) % [place] % (Auto) (0.0-15.0) % Eos % (Auto) (0.0-7.0) % Baso % (Auto) (0.0-1.5) % Neut # (Auto) (1.4-5.7) K/uL Lymph # (Auto) (0.6-2.4) K/uL [place] # (Auto) (0.0-0.8) K/uL Eos # (Auto) (0.0-0.7) K/uL Baso # (Auto) (0.0-0.1) K/uL Nucleated RBC % /100WBC Nucleated RBCs # K/uL Lactate 2.0 (0.20-2.00) mmol/L Sodium (136-148) mmol/L Potassium (3.5-5.1) mmol/L Chloride (98-107) mmol/L Carbon Dioxide (21.0-32.0) mmol/L BUN (7.0-18.0) mg/dL Creatinine (0.8-1.3) mg/dL Est Cr Clr Drug Dosing Estimated GFR (MDRD) ml/min Glucose (74-106) mg/dL Calcium (8.5-10.1) mg/dL Total Bilirubin (0.2-1.0) mg/dL AST (15-37) IU/L ALT (14-63) IU/L Alkaline Phosphatase (46-116) U/L Total Protein (6.4-8.2) g/dL Albumin (3.4-5.0) g/dL Globulin (2.6-4.0) g/dL Albumin/Globulin Ratio (0.9-1.6) Lipase (73-393) U/L Urine Color YELLOW Urine Appearance CLEAR Urine pH 7.0 (5.0-8.0) Ur Specific [place] 1.015 (1.001-1.035) Urine Protein >=300 H (NEGATIVE) mg/dL Urine Glucose (UA) >=1000 (NEGATIVE) mg/dL Urine Ketones 15 H (NEGATIVE) mg/dL Urine Occult Blood SMALL H (NEGATIVE) Urine Nitrite NEGATIVE (NEGATIVE) Urine Bilirubin NEGATIVE (NEGATIVE) Urine Urobilinogen 0.2 (<2.0) EU/dL Ur Leukocyte Esterase NEGATIVE (NEGATIVE) Urine RBC 2-4 (0-2/HPF) Urine WBC 0-1 (0-5/HPF) Ur Epithelial Cells FEW (NONE-FEW) Urine Bacteria FEW (NEGATIVE) Urine Mucus LIGHT (NONE-MOD) Ketones (NEG) Blood Type O POSITIVE Antibody Screen NEGATIVE Result Diagrams: 03/26/19 09:22 03/26/19 09:22 Problem List Initiated/Reviewed/Updated: Yes Orders Last 24hrs: Active Orders 24 hr Category Date Time Status Patient Status [ADT] Stat ADT 03/26/19 11:19 Active Antiembolic Devices [RC] PER UNIT ROUTINE Care 03/26/19 13:34 Active Blood Glucose Check, Bedside [RC] Q6HR Care 03/26/19 13:32 Active Hemoccult [Fecal Occult Blood Collection] [RC] Care 03/26/19 13:28 Active ASDIRECTED Notify Provider Consults [RC] ASDIRECTED Care 03/26/19 13:34 Active Oxygen Therapy [RC] PRN Care 03/26/19 13:32 Active Up ad Urth [RC] ASDIRECTED Care 03/26/19 13:32 Active VTE/DVT Education [RC] PER UNIT ROUTINE Care 03/26/19 13:32 Active Vital Signs [RC] Q4H Care 03/26/19 13:32 Active Consult to Physician [CONS] Routine Cons 03/26/19 13:32 Active Nothing per Oral Now Diet [DIET] Diet 03/26/19 Breakfast Active Abdomen 1V Upright [CR] Stat Exams 03/26/19 10:00 Taken Chest 1V Frontal [CR] Stat Exams 03/26/19 10:00 Taken CBC W/O DIFF,HEMOGRAM [HEME] Q12H Lab 03/26/19 17:00 Ordered CBC W/O DIFF,HEMOGRAM [HEME] Q12H Lab 03/27/19 05:00 Ordered COMPREHENSIVE METABOLIC PN,CMP [CHEM] AM Lab 03/27/19 05:11 Ordered Ondansetron [Zofran] Med 03/26/19 13:32 Ordered 4 mg IVPUSH Q4H PRN Pantoprazole [ProTONIX IV] Med 03/26/19 21:00 Ordered 40 mg IV Q12HR Promethazine [Phenergan] Med 03/26/19 13:32 Ordered 25 mg IM Q6H PRN Sodium Chloride 0.9% [Normal Saline] 1,000 ml Med 03/26/19 13:45 Ordered IV ASDIRECTED Sodium Chloride 0.9% [Saline Flush] Med 03/26/19 09:19 Active 10 ml FLUSH ASDIRECTED PRN Sodium Chloride 0.9% [Saline Flush] Med 03/26/19 09:19 Active 2.5 ml FLUSH ASDIRECTED PRN Saline Lock Insert [OM.PC] Stat Ot 03/26/19 09:18 Ordered Sequential Compression Device [OM.PC] Per Unit Routine Oth 03/26/19 13:32 Ordered Resuscitation Status Routine Resus Stat 03/26/19 13:32 Ordered Medication Orders Sodium Chloride (Normal Saline) 1,000 mls @ 125 mls/hr IV ASDIRECTED MICHAEL Ondansetron HCl (Zofran) 4 mg IVPUSH Q4H PRN PRN Reason: Nausea Pantoprazole Sodium (Protonix Iv) 40 mg IV Q12HR MICHAEL Promethazine HCl (Phenergan) 25 mg IM Q6H PRN PRN Reason: Nausea Sodium Chloride (Saline Flush) 10 ml FLUSH ASDIRECTED PRN PRN Reason: Keep Vein Open Sodium Chloride (Saline Flush) 2.5 ml FLUSH ASDIRECTED PRN PRN Reason: Keep Vein Open Assessment/Plan Comment:: 33 yo male admitted with gastroparesis and possible upper GI bleed. We will treat with IV fluids and anti-emetics. We will place on Protonix and trend Hgb. Dr. Barbosa has been consulted.
[2019-03-26] MEDS: Sodium Chloride 0.9% 1,000 ML IV SCH ×2 (13:52→21:29)
[2019-03-26] MEDS ORDERED: Insulin Aspart 100 Units/ML 3 ML Pen SUBCUT SCH ×3 (14:00→16:00)
[2019-03-26] MEDS ORDERED: Insulin Aspart 100 Units/ML 3 ML Pen SUBCUT ONE (14:30)
[2019-03-26] MEDS: Ondansetron 4 MG/2 ML SDV IVPUSH PRN (15:57)
[2019-03-26] MEDS: Insulin Aspart 100 Units/ML 3 ML Pen SUBCUT SCH (16:04)
--- NOTE | 2019-03-26 20:08 | PCM.SN ---
- Free Text/Narrative Note: pt seen, chart reviewed; abd pain, coffee ground emisis, on and off X 1 yr or more, denied syncope/chest pain/dizziness/black tarry stool; had egd 2016, but no finding because of large amt of food in stomach; agree with medical treatment , protonix, gib protocol, 2 large bore iv access, monitor urine output, ok to start on full liquid; no plan for endoscope at this stage; will follow pt w you ; h/h q 8 X 3, and possible hemOnc consult as outpatient to determine if pt has any risk factors for bleeding; will follow w you; cx report [id number]
[2019-03-26] MEDS: Pantoprazole 40 MG Vial IV SCH (21:36)
--- NOTE | 2019-03-27 00:12 | CONS ---
DATE OF CONSULTATION: 03/26/2019 DATE OF : 1985 PRIMARY CARE PHYSICIAN: Unknown PCP Consult was called. The patient was seen shortly after. CONCERNING QUESTION: Coffee-grounds emesis. HISTORY OF PRESENT ILLNESS: The patient is a 33-year-old gentleman admitted to ICU, seen in the emergency room for 2 episodes of coffee-grounds emesis, no bright red blood, and was noted to be hemodynamically stable in the emergency room. Medicine was consulted. Admit to the ICU for further management. The patient remarked that he usually has this kind of situation, and coffee-grounds emesis has been going on for about at least 1 year. This time, he mentioned it has been around 12 hours and denied shortness breath, but admits that sometimes he may feel weakness. Denied chest pain, denied headache, denied syncope, and denied black tarry stool. The patient has been seen by me 4 years ago and seen by my colleague 2 years ago, had 1 EGD done 2 years ago but inconclusive because of large amount of food in the stomach, suspected to have gastroparesis from diabetes. PAST MEDICAL HISTORY: Significant for diabetic type 1 and hypertension. Denied NE and CVA. Denied drug abuse, alcohol abuse, and tobacco abuse. PAST SURGICAL HISTORY: EGD x1 in 2017 but failed. PHYSICAL EXAMINATION: GENERAL: A very pleasant nice gentleman, sitting up in bed and smiles at the doctor, very polite and very pleasant. Alert and oriented x3. HEENT: Normocephalic and atraumatic. Sclerae are anicteric. LUNGS: Clear to auscultation. HEART: Regular rate and rhythm. ABDOMEN: Soft and nondistended. No pulsating tender midline abdominal structure. No surgical scar. Mild epigastrium tenderness. No rebound tenderness. LABORATORY DATA: Upon consultation, white count 9, H and H are 9.8 and 31, and platelets are 386. INR is 0.95. IMPRESSION: A 33-year-old type 1 diabetic with right [id number] amputation in the past, had multiple episodes of coffee-grounds emesis. Per patient remarks, it has been going on for at least a year or more. Denies syncope. Denied chest pain or headache, likely is not hemodynamically compromised at the present state. I agree with treating on Protonix and get the patient stabilized, and then I will be more than happy to see the patient as outpatient, schedule for outpatient endoscopy study. The patient remarked this thing has been going on for 1 year and also on and off coffee-grounds emesis at home and does occasionally feel weak, and also when he in the morning brushes teeth and also admits to have blood on the toothbrush, but denied any black tarry stool. Also complained about 15 pounds weight loss in 2 months. The patient will probably benefit from a workup, maybe Hematology/Oncology, for looking if there is any reason prone to have bleeding, and if discharged, I would be more than happy to see him in my office in 1 or 2 weeks to schedule outpatient EGD for the time being unless there is any change in clinical situation. The patient probably would be able to have a full liquid diet, monitor H and H for 24 hours, and I will follow the patient with you. GI bleeding protocol, 2 large-bore IV access, strict in and out, and monitor urine output as you are doing. We will follow the patient with you. As always, thank you for the kind referral. DARLIN CUEVA /[id number]
[2019-03-27] MEDS: Labetalol 100 MG/20 ML MDV IVPUSH PRN ×3 (00:25→15:25)
[2019-03-27] MEDS ORDERED: Insulin Aspart 100 Units/ML 3 ML Pen SUBCUT ONE (06:44)
[2019-03-27] MEDS: Insulin Aspart 100 Units/ML 3 ML Pen SUBCUT SCH ×4 (07:26→21:49)
[2019-03-27] MEDS ORDERED: Nitroglycerin 0.4 MG Tab.SL ONE (08:12)
[2019-03-27] MEDS ORDERED: Morphine 4 MG/ML Syringe IVPUSH ONE (08:23)
[2019-03-27] MEDS: Morphine 2 MG/ML Syringe IVPUSH PRN ×2 (08:24→10:57)
[2019-03-27] MEDS: Pantoprazole 40 MG Vial IV SCH ×2 (09:27→20:13)
--- NOTE | 2019-03-27 10:32 | PCM.SURGPN ---
- General Info Date of Service: 03/27/19 Functional Status: Reports: Pain Controlled - Review of Systems General: Reports: No Symptoms (emisis X 2, better now; no black tarry stool, passing gas) - Patient Data Vitals - Most Recent: Last Vital Signs Temp 98.7 F 03/27/19 07:00 Pulse 97 03/27/19 10:00 Resp 13 03/27/19 10:00 BP 155/96 H 03/27/19 10:00 Pulse Ox 100 03/27/19 10:00 Weight - Most Recent: 170 lb I&O - Last 24 Hours: Intake & Output 03/26/19 03/27/19 03/27/19 22:59 06:59 14:59 Intake Total 2479 Output Total 700 Balance 1779 Lab Results Last 24 Hrs: Laboratory Results - last 24 hr 03/26/19 03/26/19 03/26/19 Range/Units 12:17 15:17 16:31 WBC (4.0-11.0) K/uL RBC (4.50-5.90) M/uL Hgb (13.0-17.0) g/dL Hct (38.0-50.0) % MCV (80.0-98.0) fL MCH (27.0-32.0) pg MCHC (31.0-37.0) g/dL RDW Std Deviation (28.0-62.0) fl RDW Coeff of Dania (11.0-15.0) % Plt Count (150-400) K/uL MPV (7.40-12.00) fL Nucleated RBC % /100WBC Nucleated RBCs # K/uL Sodium (136-148) mmol/L Potassium (3.5-5.1) mmol/L Chloride (98-107) mmol/L Carbon Dioxide (21.0-32.0) mmol/L BUN (7.0-18.0) mg/dL Creatinine (0.8-1.3) mg/dL Est Cr Clr Drug Dosing mL/min Estimated GFR (MDRD) ml/min Glucose (74-106) mg/dL POC Glucose 409 H 284 H (60-110) mg/dL Calcium (8.5-10.1) mg/dL Total Bilirubin (0.2-1.0) mg/dL AST (15-37) IU/L ALT (14-63) IU/L Alkaline Phosphatase (46-116) U/L Troponin I (0.000-0.056) ng/mL Total Protein (6.4-8.2) g/dL Albumin (3.4-5.0) g/dL Globulin (2.6-4.0) g/dL Albumin/Globulin Ratio (0.9-1.6) Urine Color YELLOW Urine Appearance CLEAR Urine pH 7.0 (5.0-8.0) Ur Specific [place] 1.015 (1.001-1.035) Urine Protein >=300 H (NEGATIVE) mg/dL Urine Glucose (UA) >=1000 (NEGATIVE) mg/dL Urine Ketones 15 H (NEGATIVE) mg/dL Urine Occult Blood SMALL H (NEGATIVE) Urine Nitrite NEGATIVE (NEGATIVE) Urine Bilirubin NEGATIVE (NEGATIVE) Urine Urobilinogen 0.2 (<2.0) EU/dL Ur Leukocyte Esterase NEGATIVE (NEGATIVE) Urine RBC 2-4 (0-2/HPF) Urine WBC 0-1 (0-5/HPF) Ur Epithelial Cells FEW (NONE-FEW) Urine Bacteria FEW (NEGATIVE) Urine Mucus LIGHT (NONE-MOD) 03/26/19 03/26/19 03/26/19 Range/Units 16:58 17:42 18:48 WBC 9.46 (4.0-11.0) K/uL RBC 4.64 (4.50-5.90) M/uL Hgb 9.8 L (13.0-17.0) g/dL Hct 31.3 L (38.0-50.0) % MCV 67.5 L (80.0-98.0) fL MCH 21.1 L (27.0-32.0) pg MCHC 31.3 (31.0-37.0) g/dL RDW Std Deviation 39.8 (28.0-62.0) fl RDW Coeff of Dania 16 H (11.0-15.0) % Plt Count 386 (150-400) K/uL MPV 10.60 (7.40-12.00) fL Nucleated RBC % 0.0 /100WBC Nucleated RBCs # 0 K/uL Sodium (136-148) mmol/L Potassium (3.5-5.1) mmol/L Chloride (98-107) mmol/L Carbon Dioxide (21.0-32.0) mmol/L BUN (7.0-18.0) mg/dL Creatinine (0.8-1.3) mg/dL Est Cr Clr Drug Dosing mL/min Estimated GFR (MDRD) ml/min Glucose (74-106) mg/dL POC Glucose 182 H 126 H (60-110) mg/dL Calcium (8.5-10.1) mg/dL Total Bilirubin (0.2-1.0) mg/dL AST (15-37) IU/L ALT (14-63) IU/L Alkaline Phosphatase (46-116) U/L Troponin I (0.000-0.056) ng/mL Total Protein (6.4-8.2) g/dL Albumin (3.4-5.0) g/dL Globulin (2.6-4.0) g/dL Albumin/Globulin Ratio (0.9-1.6) Urine Color Urine Appearance Urine pH (5.0-8.0) Ur Specific [place] (1.001-1.035) Urine Protein (NEGATIVE) mg/dL Urine Glucose (UA) (NEGATIVE) mg/dL Urine Ketones (NEGATIVE) mg/dL Urine Occult Blood (NEGATIVE) Urine Nitrite (NEGATIVE) Urine Bilirubin (NEGATIVE) Urine Urobilinogen (<2.0) EU/dL Ur Leukocyte Esterase (NEGATIVE) Urine RBC (0-2/HPF) Urine WBC (0-5/HPF) Ur Epithelial Cells (NONE-FEW) Urine Bacteria (NEGATIVE) Urine Mucus (NONE-MOD) 03/26/19 03/26/19 03/26/19 Range/Units 20:14 20:17 21:43 WBC (4.0-11.0) K/uL RBC (4.50-5.90) M/uL Hgb 9.8 L (13.0-17.0) g/dL Hct 30.9 L (38.0-50.0) % MCV (80.0-98.0) fL MCH (27.0-32.0) pg MCHC (31.0-37.0) g/dL RDW Std Deviation (28.0-62.0) fl RDW Coeff of Dania (11.0-15.0) % Plt Count (150-400) K/uL MPV (7.40-12.00) fL Nucleated RBC % /100WBC Nucleated RBCs # K/uL Sodium (136-148) mmol/L Potassium (3.5-5.1) mmol/L Chloride (98-107) mmol/L Carbon Dioxide (21.0-32.0) mmol/L BUN (7.0-18.0) mg/dL Creatinine (0.8-1.3) mg/dL Est Cr Clr Drug Dosing mL/min Estimated GFR (MDRD) ml/min Glucose (74-106) mg/dL POC Glucose 99 180 H (60-110) mg/dL Calcium (8.5-10.1) mg/dL Total Bilirubin (0.2-1.0) mg/dL AST (15-37) IU/L ALT (14-63) IU/L Alkaline Phosphatase (46-116) U/L Troponin I (0.000-0.056) ng/mL Total Protein (6.4-8.2) g/dL Albumin (3.4-5.0) g/dL Globulin (2.6-4.0) g/dL Albumin/Globulin Ratio (0.9-1.6) Urine Color Urine Appearance Urine pH (5.0-8.0) Ur Specific [place] (1.001-1.035) Urine Protein (NEGATIVE) mg/dL Urine Glucose (UA) (NEGATIVE) mg/dL Urine Ketones (NEGATIVE) mg/dL Urine Occult Blood (NEGATIVE) Urine Nitrite (NEGATIVE) Urine Bilirubin (NEGATIVE) Urine Urobilinogen (<2.0) EU/dL Ur Leukocyte Esterase (NEGATIVE) Urine RBC (0-2/HPF) Urine WBC (0-5/HPF) Ur Epithelial Cells (NONE-FEW) Urine Bacteria (NEGATIVE) Urine Mucus (NONE-MOD) 03/26/19 03/27/19 03/27/19 Range/Units 22:33 00:05 03:06 WBC (4.0-11.0) K/uL RBC (4.50-5.90) M/uL Hgb (13.0-17.0) g/dL Hct (38.0-50.0) % MCV (80.0-98.0) fL MCH (27.0-32.0) pg MCHC (31.0-37.0) g/dL RDW Std Deviation (28.0-62.0) fl RDW Coeff of Dania (11.0-15.0) % Plt Count (150-400) K/uL MPV (7.40-12.00) fL Nucleated RBC % /100WBC Nucleated RBCs # K/uL Sodium (136-148) mmol/L Potassium (3.5-5.1) mmol/L Chloride (98-107) mmol/L Carbon Dioxide (21.0-32.0) mmol/L BUN (7.0-18.0) mg/dL Creatinine (0.8-1.3) mg/dL Est Cr Clr Drug Dosing mL/min Estimated GFR (MDRD) ml/min Glucose (74-106) mg/dL POC Glucose 175 H 142 H 257 H (60-110) mg/dL Calcium (8.5-10.1) mg/dL Total Bilirubin (0.2-1.0) mg/dL AST (15-37) IU/L ALT (14-63) IU/L Alkaline Phosphatase (46-116) U/L Troponin I (0.000-0.056) ng/mL Total Protein (6.4-8.2) g/dL Albumin (3.4-5.0) g/dL Globulin (2.6-4.0) g/dL Albumin/Globulin Ratio (0.9-1.6) Urine Color Urine Appearance Urine pH (5.0-8.0) Ur Specific [place] (1.001-1.035) Urine Protein (NEGATIVE) mg/dL Urine Glucose (UA) (NEGATIVE) mg/dL Urine Ketones (NEGATIVE) mg/dL Urine Occult Blood (NEGATIVE) Urine Nitrite (NEGATIVE) Urine Bilirubin (NEGATIVE) Urine Urobilinogen (<2.0) EU/dL Ur Leukocyte Esterase (NEGATIVE) Urine RBC (0-2/HPF) Urine WBC (0-5/HPF) Ur Epithelial Cells (NONE-FEW) Urine Bacteria (NEGATIVE) Urine Mucus (NONE-MOD) 03/27/19 03/27/19 03/27/19 Range/Units 04:19 04:19 06:07 WBC (4.0-11.0) K/uL RBC (4.50-5.90) M/uL Hgb 9.4 L (13.0-17.0) g/dL Hct 30.4 L (38.0-50.0) % MCV (80.0-98.0) fL MCH (27.0-32.0) pg MCHC (31.0-37.0) g/dL RDW Std Deviation (28.0-62.0) fl RDW Coeff of Dania (11.0-15.0) % Plt Count (150-400) K/uL MPV (7.40-12.00) fL Nucleated RBC % /100WBC Nucleated RBCs # K/uL Sodium 138 (136-148) mmol/L Potassium 4.8 (3.5-5.1) mmol/L Chloride 104 (98-107) mmol/L Carbon Dioxide 22.3 (21.0-32.0) mmol/L BUN 33 H (7.0-18.0) mg/dL Creatinine 2.3 H (0.8-1.3) mg/dL Est Cr Clr Drug Dosing 47.61 mL/min Estimated GFR (MDRD) 40.1 ml/min Glucose 313 H (74-106) mg/dL POC Glucose 371 H (60-110) mg/dL Calcium 7.7 L (8.5-10.1) mg/dL Total Bilirubin 0.2 (0.2-1.0) mg/dL AST 20 (15-37) IU/L ALT 28 (14-63) IU/L Alkaline Phosphatase 122 H (46-116) U/L Troponin I (0.000-0.056) ng/mL Total Protein 6.0 L (6.4-8.2) g/dL Albumin 2.4 L (3.4-5.0) g/dL Globulin 3.6 (2.6-4.0) g/dL Albumin/Globulin Ratio 0.7 L (0.9-1.6) Urine Color Urine Appearance Urine pH (5.0-8.0) Ur Specific [place] (1.001-1.035) Urine Protein (NEGATIVE) mg/dL Urine Glucose (UA) (NEGATIVE) mg/dL Urine Ketones (NEGATIVE) mg/dL Urine Occult Blood (NEGATIVE) Urine Nitrite (NEGATIVE) Urine Bilirubin (NEGATIVE) Urine Urobilinogen (<2.0) EU/dL Ur Leukocyte Esterase (NEGATIVE) Urine RBC (0-2/HPF) Urine WBC (0-5/HPF) Ur Epithelial Cells (NONE-FEW) Urine Bacteria (NEGATIVE) Urine Mucus (NONE-MOD) 03/27/19 03/27/19 03/27/19 Range/Units 07:48 08:31 10:02 WBC (4.0-11.0) K/uL RBC (4.50-5.90) M/uL Hgb (13.0-17.0) g/dL Hct (38.0-50.0) % MCV (80.0-98.0) fL MCH (27.0-32.0) pg MCHC (31.0-37.0) g/dL RDW Std Deviation (28.0-62.0) fl RDW Coeff of Dania (11.0-15.0) % Plt Count (150-400) K/uL MPV (7.40-12.00) fL Nucleated RBC % /100WBC Nucleated RBCs # K/uL Sodium (136-148) mmol/L Potassium (3.5-5.1) mmol/L Chloride (98-107) mmol/L Carbon Dioxide (21.0-32.0) mmol/L BUN (7.0-18.0) mg/dL Creatinine (0.8-1.3) mg/dL Est Cr Clr Drug Dosing mL/min Estimated GFR (MDRD) ml/min Glucose (74-106) mg/dL POC Glucose 340 H 217 H (60-110) mg/dL Calcium (8.5-10.1) mg/dL Total Bilirubin (0.2-1.0) mg/dL AST (15-37) IU/L ALT (14-63) IU/L Alkaline Phosphatase (46-116) U/L Troponin I < 0.050 (0.000-0.056) ng/mL Total Protein (6.4-8.2) g/dL Albumin (3.4-5.0) g/dL Globulin (2.6-4.0) g/dL Albumin/Globulin Ratio (0.9-1.6) Urine Color Urine Appearance Urine pH (5.0-8.0) Ur Specific [place] (1.001-1.035) Urine Protein (NEGATIVE) mg/dL Urine Glucose (UA) (NEGATIVE) mg/dL Urine Ketones (NEGATIVE) mg/dL Urine Occult Blood (NEGATIVE) Urine Nitrite (NEGATIVE) Urine Bilirubin (NEGATIVE) Urine Urobilinogen (<2.0) EU/dL Ur Leukocyte Esterase (NEGATIVE) Urine RBC (0-2/HPF) Urine WBC (0-5/HPF) Ur Epithelial Cells (NONE-FEW) Urine Bacteria (NEGATIVE) Urine Mucus (NONE-MOD) Peter Results Last 24 Hrs: Microbiology 03/26/19 13:27 Stool Occult Blood (PETER) - Final Stool / Feces POSITIVE OCCULT BLOOD REFERENCE RANGE: NEGATIVE Med Orders - Current: Current Medications Sodium Chloride (Normal Saline) 1,000 mls @ 125 mls/hr IV ASDIRECTED MICHAEL Last Admin: 03/26/19 21:29 Dose: 125 mls/hr Insulin Human Regular 100 unit (/ Sodium Chloride) 100 mls @ 2 mls/hr IV TITRATE MICHAEL; Protocol Insulin Aspart (Novolog) 0 unit SUBCUT Q6H MICHAEL; Protocol Last Admin: 03/27/19 10:03 Dose: 4 unit Labetalol HCl (Normodyne) 10 mg IVPUSH Q4H PRN; Protocol PRN Reason: Hypertension Last Admin: 03/27/19 08:03 Dose: 10 mg Morphine Sulfate (Morphine) 2 mg IVPUSH Q2H PRN PRN Reason: Nausea Last Admin: 03/27/19 08:24 Dose: 2 mg Ondansetron HCl (Zofran) 4 mg IVPUSH Q4H PRN PRN Reason: Nausea Last Admin: 03/26/19 15:57 Dose: 4 mg Pantoprazole Sodium (Protonix Iv) 40 mg IV Q12HR MICHAEL Last Admin: 03/27/19 09:27 Dose: 40 mg Promethazine HCl (Phenergan) 25 mg IM Q6H PRN PRN Reason: Nausea Sodium Chloride (Saline Flush) 10 ml FLUSH ASDIRECTED PRN PRN Reason: Keep Vein Open Sodium Chloride (Saline Flush) 2.5 ml FLUSH ASDIRECTED PRN PRN Reason: Keep Vein Open Discontinued Medications Hydromorphone HCl (Dilaudid) 0.5 mg IVPUSH ONETIME ONE Stop: 03/26/19 09:58 Last Admin: 03/26/19 10:18 Dose: Not Given Hydromorphone HCl (Dilaudid) 0.5 mg IVPUSH ONETIME ONE Stop: 03/26/19 10:07 Last Admin: 03/26/19 10:14 Dose: 0.5 mg Hydromorphone HCl (Dilaudid) 0.5 mg IVPUSH ONETIME ONE Stop: 03/26/19 11:10 Last Admin: 03/26/19 11:21 Dose: 0.5 mg Sodium Chloride (Normal Saline) 1,000 mls @ 999 mls/hr IV .Bolus ONE Stop: 03/26/19 10:19 Last Admin: 03/26/19 09:25 Dose: 999 mls/hr Sodium Chloride (Normal Saline) Confirm Administered Dose 20 mls @ as directed .ROUTE .STK-MED ONE Stop: 03/26/19 09:31 Last Admin: 03/26/19 10:23 Dose: Not Given Insulin Aspart (Novolog) 0 unit SUBCUT Q6HR MICHAEL; Protocol Last Admin: 03/26/19 14:35 Dose: Not Given Insulin Aspart (Novolog) 10 unit SUBCUT STAT ONE Stop: 03/26/19 14:31 Last Admin: 03/26/19 14:20 Dose: 10 unit Insulin Aspart (Novolog) 0 unit SUBCUT Q6H MICHAEL; Protocol Last Admin: 03/26/19 16:07 Dose: Not Given Insulin Aspart (Novolog) 10 unit SUBCUT STAT MICHAEL Stop: 03/26/19 16:05 Last Admin: 03/26/19 16:03 Dose: 10 units Insulin Aspart (Novolog) 4 unit SUBCUT ONETIME ONE Stop: 03/27/19 06:45 Last Admin: 03/27/19 06:54 Dose: 4 units Insulin Aspart (Novolog) 8 unit SUBCUT STAT ONE Stop: 03/27/19 08:21 Last Admin: 03/27/19 08:34 Dose: 8 units Labetalol HCl (Normodyne) Confirm Administered Dose 100 mg .ROUTE .STK-MED ONE Stop: 03/26/19 09:44 Last Admin: 03/26/19 10:23 Dose: Not Given Labetalol HCl (Normodyne) 20 mg IVPUSH ONETIME ONE; Protocol Stop: 03/26/19 09:48 Last Admin: 03/26/19 10:13 Dose: 10 mg Metoclopramide HCl (Reglan) 10 mg IVPUSH ONETIME ONE Stop: 03/26/19 11:10 Last Admin: 03/26/19 11:21 Dose: 10 mg Morphine Sulfate (Morphine) 4 mg IVPUSH ONETIME ONE Stop: 03/26/19 09:20 Last Admin: 03/26/19 09:25 Dose: 4 mg Morphine Sulfate (Morphine) 4 mg IVPUSH ONETIME ONE Stop: 03/27/19 08:24 Last Admin: 03/27/19 09:24 Dose: Not Given Nitroglycerin (Nitrostat) Confirm Administered Dose 0.4 mg .ROUTE .STK-MED ONE Stop: 03/27/19 08:13 Ondansetron HCl (Zofran) 4 mg IVPUSH ONETIME ONE Stop: 03/26/19 09:20 Last Admin: 03/26/19 09:25 Dose: 4 mg Pantoprazole Sodium (Protonix Iv) 80 mg IVPUSH .BOLUS ONE Stop: 03/26/19 09:21 Last Admin: 03/26/19 09:39 Dose: 80 mg - Exam GI/Abdominal Exam: Normal Bowel Sounds, Soft - Problem List Review Problem List Initiated/Reviewed/Updated: Yes - My Orders Last 24 Hours: Active Orders 24 hr Category Date Time Status Patient Status [ADT] Stat ADT 03/26/19 11:19 Active Antiembolic Devices [RC] PER UNIT ROUTINE Care 03/26/19 13:34 Active Blood Glucose Check, Bedside [RC] Q3HR Care 03/26/19 22:19 Active EKG Documentation Completion [RC] STAT Care 03/27/19 08:18 Active Notify Provider Consults [RC] ASDIRECTED Care 03/26/19 13:34 Active Oxygen Therapy [RC] PRN Care 03/26/19 13:32 Active Up ad Ruth [RC] ASDIRECTED Care 03/26/19 13:32 Active VTE/DVT Education [RC] PER UNIT ROUTINE Care 03/26/19 13:32 Active Vital Signs [RC] PRN Care 03/26/19 13:32 Active Consult to Physician [CONS] Routine Cons 03/26/19 13:32 Active Full Liquid Diet [DIET] Diet 03/27/19 Breakfast Active Abdomen 1V Upright [CR] Stat Exams 03/26/19 10:00 Taken Chest 1V Frontal [CR] Stat Exams 03/26/19 10:00 Taken HEMOGLOBIN/HEMATOCRIT,HH [HEME] Q8H Lab 03/27/19 12:00 Ordered TROPONIN I [CHEM] Routine Lab 03/27/19 14:00 Ordered TROPONIN I [CHEM] Routine Lab 03/27/19 20:00 Ordered Insulin Aspart [NovoLOG] Med 03/26/19 16:00 Active 0 unit SUBCUT Q6H Insulin Regular, Human [NovoLIN R] 100 unit Med 03/26/19 17:00 Active Sodium Chloride 0.9% [Normal Saline] 99 ml IV TITRATE Labetalol [Normodyne] Med 03/26/19 16:49 Active 10 mg IVPUSH Q4H PRN Morphine Med 03/26/19 13:38 Active 2 mg IVPUSH Q2H PRN Ondansetron [Zofran] Med 03/26/19 13:32 Active 4 mg IVPUSH Q4H PRN Pantoprazole [ProTONIX IV] Med 03/26/19 21:00 Active 40 mg IV Q12HR Promethazine [Phenergan] Med 03/26/19 13:32 Active 25 mg IM Q6H PRN Sodium Chloride 0.9% [Normal Saline] 1,000 ml Med 03/26/19 13:45 Active IV ASDIRECTED Sequential Compression Device [OM.PC] Per Unit Routine Oth 03/26/19 13:32 Ordered Resuscitation Status Routine Resus Stat 03/26/19 13:32 Ordered Medication Orders Sodium Chloride (Normal Saline) 1,000 mls @ 125 mls/hr IV ASDIRECTED MICHAEL Last Admin: 03/26/19 21:29 Dose: 125 mls/hr Infusion: 03/26/19 21:29 Dose: 125 mls/hr Admin: 03/26/19 13:52 Dose: 125 mls/hr Insulin Human Regular 100 unit (/ Sodium Chloride) 100 mls @ 2 mls/hr IV TITRATE MICHAEL; Protocol Insulin Aspart (Novolog) 0 unit SUBCUT Q6H MICHAEL; Protocol Last Admin: 03/27/19 10:03 Dose: 4 unit Admin: 03/27/19 07:26 Dose: Admin: 03/27/19 07:26 Dose: Admin: 03/26/19 16:04 Dose: Not Given Labetalol HCl (Normodyne) 10 mg IVPUSH Q4H PRN; Protocol PRN Reason: Hypertension Last Admin: 03/27/19 08:03 Dose: 10 mg Admin: 03/27/19 00:25 Dose: 10 mg Morphine Sulfate (Morphine) 2 mg IVPUSH Q2H PRN PRN Reason: Nausea Last Admin: 03/27/19 08:24 Dose: 2 mg Ondansetron HCl (Zofran) 4 mg IVPUSH Q4H PRN PRN Reason: Nausea Last Admin: 03/26/19 15:57 Dose: 4 mg Pantoprazole Sodium (Protonix Iv) 40 mg IV Q12HR MICHAEL Last Admin: 03/27/19 09:27 Dose: 40 mg Admin: 03/26/19 21:36 Dose: 40 mg Promethazine HCl (Phenergan) 25 mg IM Q6H PRN PRN Reason: Nausea Sodium Chloride (Saline Flush) 10 ml FLUSH ASDIRECTED PRN PRN Reason: Keep Vein Open Sodium Chloride (Saline Flush) 2.5 ml FLUSH ASDIRECTED PRN PRN Reason: Keep Vein Open - Assessment Assessment (Free Text/Narrative):: h/h stable X 24 hrs, will dc blood draw, emisis per nursing staff, completely clear; scale back diet to clear liquid diet, and likely adv in the morning; - Plan Plan (Free Text/Narrative):: h/h stable X 24 hrs, will dc blood draw, emisis per nursing staff, completely clear; scale back diet to clear liquid diet, and likely adv in the morning;
--- NOTE | 2019-03-27 10:39 | PCM.PN ---
- General Info Date of Service: 03/27/19 - Review of Systems Systems Review Comment:: no more episodes of coffee ground, blood pressure has been labile and had chest pressure when his blood pressure went above 200 systolic this morning. - Patient Data Vitals - Most Recent: Last Vital Signs Temp 37.1 C 03/27/19 07:00 Pulse 97 03/27/19 10:00 Resp 13 03/27/19 10:00 BP 155/96 H 03/27/19 10:00 Pulse Ox 100 03/27/19 10:00 Weight - Most Recent: 77.111 kg I&O - Last 24 Hours: Intake & Output 03/26/19 03/27/19 03/27/19 22:59 06:59 14:59 Intake Total 2479 Output Total 700 Balance 1779 Lab Results Last 24 Hours: Laboratory Results - last 24 hr 03/26/19 03/26/19 03/26/19 Range/Units 12:17 15:17 16:31 WBC (4.0-11.0) K/uL RBC (4.50-5.90) M/uL Hgb (13.0-17.0) g/dL Hct (38.0-50.0) % MCV (80.0-98.0) fL MCH (27.0-32.0) pg MCHC (31.0-37.0) g/dL RDW Std Deviation (28.0-62.0) fl RDW Coeff of Dania (11.0-15.0) % Plt Count (150-400) K/uL MPV (7.40-12.00) fL Nucleated RBC % /100WBC Nucleated RBCs # K/uL Sodium (136-148) mmol/L Potassium (3.5-5.1) mmol/L Chloride (98-107) mmol/L Carbon Dioxide (21.0-32.0) mmol/L BUN (7.0-18.0) mg/dL Creatinine (0.8-1.3) mg/dL Est Cr Clr Drug Dosing mL/min Estimated GFR (MDRD) ml/min Glucose (74-106) mg/dL POC Glucose 409 H 284 H (60-110) mg/dL Calcium (8.5-10.1) mg/dL Total Bilirubin (0.2-1.0) mg/dL AST (15-37) IU/L ALT (14-63) IU/L Alkaline Phosphatase (46-116) U/L Troponin I (0.000-0.056) ng/mL Total Protein (6.4-8.2) g/dL Albumin (3.4-5.0) g/dL Globulin (2.6-4.0) g/dL Albumin/Globulin Ratio (0.9-1.6) Urine Color YELLOW Urine Appearance CLEAR Urine pH 7.0 (5.0-8.0) Ur Specific [place] 1.015 (1.001-1.035) Urine Protein >=300 H (NEGATIVE) mg/dL Urine Glucose (UA) >=1000 (NEGATIVE) mg/dL Urine Ketones 15 H (NEGATIVE) mg/dL Urine Occult Blood SMALL H (NEGATIVE) Urine Nitrite NEGATIVE (NEGATIVE) Urine Bilirubin NEGATIVE (NEGATIVE) Urine Urobilinogen 0.2 (<2.0) EU/dL Ur Leukocyte Esterase NEGATIVE (NEGATIVE) Urine RBC 2-4 (0-2/HPF) Urine WBC 0-1 (0-5/HPF) Ur Epithelial Cells FEW (NONE-FEW) Urine Bacteria FEW (NEGATIVE) Urine Mucus LIGHT (NONE-MOD) 03/26/19 03/26/19 03/26/19 Range/Units 16:58 17:42 18:48 WBC 9.46 (4.0-11.0) K/uL RBC 4.64 (4.50-5.90) M/uL Hgb 9.8 L (13.0-17.0) g/dL Hct 31.3 L (38.0-50.0) % MCV 67.5 L (80.0-98.0) fL MCH 21.1 L (27.0-32.0) pg MCHC 31.3 (31.0-37.0) g/dL RDW Std Deviation 39.8 (28.0-62.0) fl RDW Coeff of Dania 16 H (11.0-15.0) % Plt Count 386 (150-400) K/uL MPV 10.60 (7.40-12.00) fL Nucleated RBC % 0.0 /100WBC Nucleated RBCs # 0 K/uL Sodium (136-148) mmol/L Potassium (3.5-5.1) mmol/L Chloride (98-107) mmol/L Carbon Dioxide (21.0-32.0) mmol/L BUN (7.0-18.0) mg/dL Creatinine (0.8-1.3) mg/dL Est Cr Clr Drug Dosing mL/min Estimated GFR (MDRD) ml/min Glucose (74-106) mg/dL POC Glucose 182 H 126 H (60-110) mg/dL Calcium (8.5-10.1) mg/dL Total Bilirubin (0.2-1.0) mg/dL AST (15-37) IU/L ALT (14-63) IU/L Alkaline Phosphatase (46-116) U/L Troponin I (0.000-0.056) ng/mL Total Protein (6.4-8.2) g/dL Albumin (3.4-5.0) g/dL Globulin (2.6-4.0) g/dL Albumin/Globulin Ratio (0.9-1.6) Urine Color Urine Appearance Urine pH (5.0-8.0) Ur Specific [place] (1.001-1.035) Urine Protein (NEGATIVE) mg/dL Urine Glucose (UA) (NEGATIVE) mg/dL Urine Ketones (NEGATIVE) mg/dL Urine Occult Blood (NEGATIVE) Urine Nitrite (NEGATIVE) Urine Bilirubin (NEGATIVE) Urine Urobilinogen (<2.0) EU/dL Ur Leukocyte Esterase (NEGATIVE) Urine RBC (0-2/HPF) Urine WBC (0-5/HPF) Ur Epithelial Cells (NONE-FEW) Urine Bacteria (NEGATIVE) Urine Mucus (NONE-MOD) 03/26/19 03/26/19 03/26/19 Range/Units 20:14 20:17 21:43 WBC (4.0-11.0) K/uL RBC (4.50-5.90) M/uL Hgb 9.8 L (13.0-17.0) g/dL Hct 30.9 L (38.0-50.0) % MCV (80.0-98.0) fL MCH (27.0-32.0) pg MCHC (31.0-37.0) g/dL RDW Std Deviation (28.0-62.0) fl RDW Coeff of Dania (11.0-15.0) % Plt Count (150-400) K/uL MPV (7.40-12.00) fL Nucleated RBC % /100WBC Nucleated RBCs # K/uL Sodium (136-148) mmol/L Potassium (3.5-5.1) mmol/L Chloride (98-107) mmol/L Carbon Dioxide (21.0-32.0) mmol/L BUN (7.0-18.0) mg/dL Creatinine (0.8-1.3) mg/dL Est Cr Clr Drug Dosing mL/min Estimated GFR (MDRD) ml/min Glucose (74-106) mg/dL POC Glucose 99 180 H (60-110) mg/dL Calcium (8.5-10.1) mg/dL Total Bilirubin (0.2-1.0) mg/dL AST (15-37) IU/L ALT (14-63) IU/L Alkaline Phosphatase (46-116) U/L Troponin I (0.000-0.056) ng/mL Total Protein (6.4-8.2) g/dL Albumin (3.4-5.0) g/dL Globulin (2.6-4.0) g/dL Albumin/Globulin Ratio (0.9-1.6) Urine Color Urine Appearance Urine pH (5.0-8.0) Ur Specific [place] (1.001-1.035) Urine Protein (NEGATIVE) mg/dL Urine Glucose (UA) (NEGATIVE) mg/dL Urine Ketones (NEGATIVE) mg/dL Urine Occult Blood (NEGATIVE) Urine Nitrite (NEGATIVE) Urine Bilirubin (NEGATIVE) Urine Urobilinogen (<2.0) EU/dL Ur Leukocyte Esterase (NEGATIVE) Urine RBC (0-2/HPF) Urine WBC (0-5/HPF) Ur Epithelial Cells (NONE-FEW) Urine Bacteria (NEGATIVE) Urine Mucus (NONE-MOD) 03/26/19 03/27/19 03/27/19 Range/Units 22:33 00:05 03:06 WBC (4.0-11.0) K/uL RBC (4.50-5.90) M/uL Hgb (13.0-17.0) g/dL Hct (38.0-50.0) % MCV (80.0-98.0) fL MCH (27.0-32.0) pg MCHC (31.0-37.0) g/dL RDW Std Deviation (28.0-62.0) fl RDW Coeff of Dania (11.0-15.0) % Plt Count (150-400) K/uL MPV (7.40-12.00) fL Nucleated RBC % /100WBC Nucleated RBCs # K/uL Sodium (136-148) mmol/L Potassium (3.5-5.1) mmol/L Chloride (98-107) mmol/L Carbon Dioxide (21.0-32.0) mmol/L BUN (7.0-18.0) mg/dL Creatinine (0.8-1.3) mg/dL Est Cr Clr Drug Dosing mL/min Estimated GFR (MDRD) ml/min Glucose (74-106) mg/dL POC Glucose 175 H 142 H 257 H (60-110) mg/dL Calcium (8.5-10.1) mg/dL Total Bilirubin (0.2-1.0) mg/dL AST (15-37) IU/L ALT (14-63) IU/L Alkaline Phosphatase (46-116) U/L Troponin I (0.000-0.056) ng/mL Total Protein (6.4-8.2) g/dL Albumin (3.4-5.0) g/dL Globulin (2.6-4.0) g/dL Albumin/Globulin Ratio (0.9-1.6) Urine Color Urine Appearance Urine pH (5.0-8.0) Ur Specific [place] (1.001-1.035) Urine Protein (NEGATIVE) mg/dL Urine Glucose (UA) (NEGATIVE) mg/dL Urine Ketones (NEGATIVE) mg/dL Urine Occult Blood (NEGATIVE) Urine Nitrite (NEGATIVE) Urine Bilirubin (NEGATIVE) Urine Urobilinogen (<2.0) EU/dL Ur Leukocyte Esterase (NEGATIVE) Urine RBC (0-2/HPF) Urine WBC (0-5/HPF) Ur Epithelial Cells (NONE-FEW) Urine Bacteria (NEGATIVE) Urine Mucus (NONE-MOD) 03/27/19 03/27/19 03/27/19 Range/Units 04:19 04:19 06:07 WBC (4.0-11.0) K/uL RBC (4.50-5.90) M/uL Hgb 9.4 L (13.0-17.0) g/dL Hct 30.4 L (38.0-50.0) % MCV (80.0-98.0) fL MCH (27.0-32.0) pg MCHC (31.0-37.0) g/dL RDW Std Deviation (28.0-62.0) fl RDW Coeff of Dania (11.0-15.0) % Plt Count (150-400) K/uL MPV (7.40-12.00) fL Nucleated RBC % /100WBC Nucleated RBCs # K/uL Sodium 138 (136-148) mmol/L Potassium 4.8 (3.5-5.1) mmol/L Chloride 104 (98-107) mmol/L Carbon Dioxide 22.3 (21.0-32.0) mmol/L BUN 33 H (7.0-18.0) mg/dL Creatinine 2.3 H (0.8-1.3) mg/dL Est Cr Clr Drug Dosing 47.61 mL/min Estimated GFR (MDRD) 40.1 ml/min Glucose 313 H (74-106) mg/dL POC Glucose 371 H (60-110) mg/dL Calcium 7.7 L (8.5-10.1) mg/dL Total Bilirubin 0.2 (0.2-1.0) mg/dL AST 20 (15-37) IU/L ALT 28 (14-63) IU/L Alkaline Phosphatase 122 H (46-116) U/L Troponin I (0.000-0.056) ng/mL Total Protein 6.0 L (6.4-8.2) g/dL Albumin 2.4 L (3.4-5.0) g/dL Globulin 3.6 (2.6-4.0) g/dL Albumin/Globulin Ratio 0.7 L (0.9-1.6) Urine Color Urine Appearance Urine pH (5.0-8.0) Ur Specific [place] (1.001-1.035) Urine Protein (NEGATIVE) mg/dL Urine Glucose (UA) (NEGATIVE) mg/dL Urine Ketones (NEGATIVE) mg/dL Urine Occult Blood (NEGATIVE) Urine Nitrite (NEGATIVE) Urine Bilirubin (NEGATIVE) Urine Urobilinogen (<2.0) EU/dL Ur Leukocyte Esterase (NEGATIVE) Urine RBC (0-2/HPF) Urine WBC (0-5/HPF) Ur Epithelial Cells (NONE-FEW) Urine Bacteria (NEGATIVE) Urine Mucus (NONE-MOD) 03/27/19 03/27/19 03/27/19 Range/Units 07:48 08:31 10:02 WBC (4.0-11.0) K/uL RBC (4.50-5.90) M/uL Hgb (13.0-17.0) g/dL Hct (38.0-50.0) % MCV (80.0-98.0) fL MCH (27.0-32.0) pg MCHC (31.0-37.0) g/dL RDW Std Deviation (28.0-62.0) fl RDW Coeff of Dania (11.0-15.0) % Plt Count (150-400) K/uL MPV (7.40-12.00) fL Nucleated RBC % /100WBC Nucleated RBCs # K/uL Sodium (136-148) mmol/L Potassium (3.5-5.1) mmol/L Chloride (98-107) mmol/L Carbon Dioxide (21.0-32.0) mmol/L BUN (7.0-18.0) mg/dL Creatinine (0.8-1.3) mg/dL Est Cr Clr Drug Dosing mL/min Estimated GFR (MDRD) ml/min Glucose (74-106) mg/dL POC Glucose 340 H 217 H (60-110) mg/dL Calcium (8.5-10.1) mg/dL Total Bilirubin (0.2-1.0) mg/dL AST (15-37) IU/L ALT (14-63) IU/L Alkaline Phosphatase (46-116) U/L Troponin I < 0.050 (0.000-0.056) ng/mL Total Protein (6.4-8.2) g/dL Albumin (3.4-5.0) g/dL Globulin (2.6-4.0) g/dL Albumin/Globulin Ratio (0.9-1.6) Urine Color Urine Appearance Urine pH (5.0-8.0) Ur Specific [place] (1.001-1.035) Urine Protein (NEGATIVE) mg/dL Urine Glucose (UA) (NEGATIVE) mg/dL Urine Ketones (NEGATIVE) mg/dL Urine Occult Blood (NEGATIVE) Urine Nitrite (NEGATIVE) Urine Bilirubin (NEGATIVE) Urine Urobilinogen (<2.0) EU/dL Ur Leukocyte Esterase (NEGATIVE) Urine RBC (0-2/HPF) Urine WBC (0-5/HPF) Ur Epithelial Cells (NONE-FEW) Urine Bacteria (NEGATIVE) Urine Mucus (NONE-MOD) Peter Results Last 24 Hours: Microbiology 03/26/19 13:27 Stool Occult Blood (PETER) - Final Stool / Feces POSITIVE OCCULT BLOOD REFERENCE RANGE: NEGATIVE Med Orders - Current: Current Medications Enalapril Maleate (Vasotec) 40 mg PO BEDTIME [facility] Hydralazine HCl (Apresoline) 25 mg PO TID MICHAEL Hydrochlorothiazide (Hydrochlorothiazide) 25 mg PO DAILY [facility] Sodium Chloride (Normal Saline) 1,000 mls @ 125 mls/hr IV ASDIRECTED MICHAEL Last Admin: 03/26/19 21:29 Dose: 125 mls/hr Insulin Human Regular 100 unit (/ Sodium Chloride) 100 mls @ 2 mls/hr IV TITRATE MICHAEL; Protocol Insulin Aspart (Novolog) 0 unit SUBCUT Q6H MICHAEL; Protocol Last Admin: 03/27/19 10:03 Dose: 4 unit Labetalol HCl (Normodyne) 10 mg IVPUSH Q4H PRN; Protocol PRN Reason: Hypertension Last Admin: 03/27/19 08:03 Dose: 10 mg Morphine Sulfate (Morphine) 2 mg IVPUSH Q2H PRN PRN Reason: Nausea Last Admin: 03/27/19 08:24 Dose: 2 mg Non-Formulary Medication (Amlodipine) 10 mg PO BEDTIME [facility] Ondansetron HCl (Zofran) 4 mg IVPUSH Q4H PRN PRN Reason: Nausea Last Admin: 03/26/19 15:57 Dose: 4 mg Pantoprazole Sodium (Protonix Iv) 40 mg IV Q12HR MICHAEL Last Admin: 03/27/19 09:27 Dose: 40 mg Promethazine HCl (Phenergan) 25 mg IM Q6H PRN PRN Reason: Nausea Sodium Chloride (Saline Flush) 10 ml FLUSH ASDIRECTED PRN PRN Reason: Keep Vein Open Sodium Chloride (Saline Flush) 2.5 ml FLUSH ASDIRECTED PRN PRN Reason: Keep Vein Open Discontinued Medications Hydromorphone HCl (Dilaudid) 0.5 mg IVPUSH ONETIME ONE Stop: 03/26/19 09:58 Last Admin: 03/26/19 10:18 Dose: Not Given Hydromorphone HCl (Dilaudid) 0.5 mg IVPUSH ONETIME ONE Stop: 03/26/19 10:07 Last Admin: 03/26/19 10:14 Dose: 0.5 mg Hydromorphone HCl (Dilaudid) 0.5 mg IVPUSH ONETIME ONE Stop: 03/26/19 11:10 Last Admin: 03/26/19 11:21 Dose: 0.5 mg Sodium Chloride (Normal Saline) 1,000 mls @ 999 mls/hr IV .Bolus ONE Stop: 03/26/19 10:19 Last Admin: 03/26/19 09:25 Dose: 999 mls/hr Sodium Chloride (Normal Saline) Confirm Administered Dose 20 mls @ as directed .ROUTE .STK-MED ONE Stop: 03/26/19 09:31 Last Admin: 03/26/19 10:23 Dose: Not Given Insulin Aspart (Novolog) 0 unit SUBCUT Q6HR MICHAEL; Protocol Last Admin: 03/26/19 14:35 Dose: Not Given Insulin Aspart (Novolog) 10 unit SUBCUT STAT ONE Stop: 03/26/19 14:31 Last Admin: 03/26/19 14:20 Dose: 10 unit Insulin Aspart (Novolog) 0 unit SUBCUT Q6H MICHAEL; Protocol Last Admin: 03/26/19 16:07 Dose: Not Given Insulin Aspart (Novolog) 10 unit SUBCUT STAT MICHAEL Stop: 03/26/19 16:05 Last Admin: 03/26/19 16:03 Dose: 10 units Insulin Aspart (Novolog) 4 unit SUBCUT ONETIME ONE Stop: 03/27/19 06:45 Last Admin: 03/27/19 06:54 Dose: 4 units Insulin Aspart (Novolog) 8 unit SUBCUT STAT ONE Stop: 03/27/19 08:21 Last Admin: 03/27/19 08:34 Dose: 8 units Labetalol HCl (Normodyne) Confirm Administered Dose 100 mg .ROUTE .STK-MED ONE Stop: 03/26/19 09:44 Last Admin: 03/26/19 10:23 Dose: Not Given Labetalol HCl (Normodyne) 20 mg IVPUSH ONETIME ONE; Protocol Stop: 03/26/19 09:48 Last Admin: 03/26/19 10:13 Dose: 10 mg Metoclopramide HCl (Reglan) 10 mg IVPUSH ONETIME ONE Stop: 03/26/19 11:10 Last Admin: 03/26/19 11:21 Dose: 10 mg Morphine Sulfate (Morphine) 4 mg IVPUSH ONETIME ONE Stop: 03/26/19 09:20 Last Admin: 03/26/19 09:25 Dose: 4 mg Morphine Sulfate (Morphine) 4 mg IVPUSH ONETIME ONE Stop: 03/27/19 08:24 Last Admin: 03/27/19 09:24 Dose: Not Given Nitroglycerin (Nitrostat) Confirm Administered Dose 0.4 mg .ROUTE .STK-MED ONE Stop: 03/27/19 08:13 Ondansetron HCl (Zofran) 4 mg IVPUSH ONETIME ONE Stop: 03/26/19 09:20 Last Admin: 03/26/19 09:25 Dose: 4 mg Pantoprazole Sodium (Protonix Iv) 80 mg IVPUSH .BOLUS ONE Stop: 03/26/19 09:21 Last Admin: 03/26/19 09:39 Dose: 80 mg - Exam General: Alert, Oriented Lungs: Clear to Auscultation, Normal Respiratory Effort Cardiovascular: Regular Rate, Regular Rhythm GI/Abdominal Exam: Soft, Non-Tender Neurological: No New Focal Deficit - Problem List Review Problem List Initiated/Reviewed/Updated: Yes - My Orders Last 24 Hours: My Active Orders 03/26/19 13:32 Oxygen Therapy [RC] PRN Up ad Ruth [RC] ASDIRECTED VTE/DVT Education [RC] PER UNIT ROUTINE Vital Signs [RC] PRN Consult to Physician [CONS] Routine Ondansetron [Zofran] 4 mg IVPUSH Q4H PRN Promethazine [Phenergan] 25 mg IM Q6H PRN Sequential Compression Device [OM.PC] Per Unit Routine Resuscitation Status Routine 03/26/19 13:34 Antiembolic Devices [RC] PER UNIT ROUTINE Notify Provider Consults [RC] ASDIRECTED 03/26/19 13:38 Morphine 2 mg IVPUSH Q2H PRN 03/26/19 13:45 Sodium Chloride 0.9% [Normal Saline] 1,000 ml IV ASDIRECTED 03/26/19 16:00 Insulin Aspart [NovoLOG] 0 unit SUBCUT Q6H 03/26/19 21:00 Pantoprazole [ProTONIX IV] 40 mg IV Q12HR 03/26/19 22:19 Blood Glucose Check, Bedside [RC] Q3HR 03/27/19 08:18 EKG Documentation Completion [RC] STAT 03/27/19 10:45 hydroCHLOROthiazide 25 mg PO DAILY 03/27/19 14:00 hydrALAZINE [Apresoline] 25 mg PO TID 03/27/19 21:00 Enalapril [Vasotec] 40 mg PO BEDTIME amLODIPine 10 mg PO BEDTIME 03/28/19 05:11 BASIC METABOLIC PANEL,BMP [CHEM] AM CBC WITH AUTO DIFF [HEME] AM 03/29/19 05:11 BASIC METABOLIC PANEL,BMP [CHEM] AM CBC WITH AUTO DIFF [HEME] AM - Plan Plan:: 33 yo male admitted with gastroparesis and possible upper GI bleed. Gastroparesis/gastritis: resolving, continue fluids and protonix HTN: labile, will resume home medications DM: on sliding scale insulin
[2019-03-27] MEDS: hydrALAZINE 25 MG Tab PO SCH ×3 (10:42→21:51)
[2019-03-27] MEDS ORDERED: Hydrochlorothiazide 25 MG Tab PO SCH (10:45)
[2019-03-27] MEDS: Sodium Chloride 0.9% 1,000 ML IV SCH ×2 (12:14→20:11)
[2019-03-27] MEDS ORDERED: Nitroglycerin 0.4 MG Tab.SL SL PRN (12:26)
[2019-03-27] MEDS ORDERED: hydrALAZINE 25 MG Tab PO SCH (14:00)
[2019-03-27] MEDS ORDERED: hydrALAZINE 20 MG/ML SDV IVPUSH PRN (18:35)
[2019-03-27] MEDS ORDERED: amLODIPine 5 MG Tab PO SCH (21:00)
[2019-03-28] MEDS: Insulin Aspart 100 Units/ML 3 ML Pen SUBCUT SCH ×2 (04:08→09:50)
[2019-03-28] MEDS: Sodium Chloride 0.9% 1,000 ML IV SCH (04:09)
[2019-03-28] MEDS: Morphine 2 MG/ML Syringe IVPUSH PRN (04:22)
[2019-03-28] MEDS: Ondansetron 4 MG/2 ML SDV IVPUSH PRN (04:33)
[2019-03-28] MEDS: hydrALAZINE 25 MG Tab PO SCH ×2 (05:17→07:27)
[2019-03-28] MEDS ORDERED: Metoprolol Tartrate 5 MG/5 ML SDV IVPUSH ONE (05:34)
[2019-03-28] MEDS ORDERED: Promethazine 25 MG/ML SDV IM ONE (05:57)
[2019-03-28] MEDS ORDERED: Morphine 2 MG/ML Syringe IVPUSH ONE (05:58)
[2019-03-28] MEDS ORDERED: niCARdipine/Normal Saline 20 MG/200 ML BAG IV SCH (06:00)
--- NOTE | 2019-03-28 09:10 | CR ---
EXAM DATE: 03/26/19 PATIENT'S AGE: 33 Patient: DAWOOD DUCKWORTH Facility: [facility] Site . Site : 1985 Study: XRay-Chest -03/26/2019 10:17:51 AM Ordering Physician: Godwin Dewey Final Report: INDICATION: GI bleeding. Question perforation. TECHNIQUE: Portable AP erect chest performed at 9:57 a.m. FINDINGS: Lungs are clear. Heart and pulmonary vessels are normal in size. There is no evidence of pneumothorax or pneumomediastinum. There is no evidence of a pneumoperitoneum. IMPRESSION: Negative chest. Dictated by Michael Troncoso MD @ Mar 26 2019 11:05AM Signed by: Michael Troncoso MD @03/26/2019 11:10:02 AM (Electronic Signature) Report Signed by Proxy. [facility] SYSTEMLedy
--- NOTE | 2019-03-28 09:11 | CR ---
EXAM DATE: 03/26/19 PATIENT'S AGE: 33 Patient: DAWOOD DUCKWORTH Facility: [facility] Site . Site : 1985 Study: XRay-Abdomen -03/26/2019 10:18:28 AM Ordering Physician: Godwin Dewey Final Report: INDICATION: GI bleeding. Question perforation. TECHNIQUE: Portable AP erect abdomen performed at 9:57 a.m. FINDINGS: There is no evidence of free intraperitoneal air. Bowel gas pattern appears normal. The lung bases are clear. IMPRESSION: No evidence of pneumoperitoneum. Dictated by Michael Troncoso MD @ Mar 26 2019 11:05AM Signed by: Michael Troncoso MD @03/26/2019 11:09:02 AM (Electronic Signature) Report Signed by Proxy. [facility]
[2019-03-28] MEDS: Pantoprazole 40 MG Vial IV SCH (09:32)
[2019-03-28 11:32] VITALS: BP 153/92
--- NOTE | 2019-03-28 11:43 | PCM.DCSUM1 ---
Discharge Summary - Discharge Data Discharge Date: 03/28/19 Discharge Disposition: Home, Self-Care 01 Condition: Fair - Patient Summary/Data Consults: Consultations 03/26/19 13:32 Consult to Physician [CONS] Routine Hospital Course: 33 yo male with pmh of DM type 1, CKD, HTN, R BKA, who was admitted for gastritis and gastroparesis. He presented with abdominal pain, nausea with coffee ground emesis. He was treated with IV fluids, dilaudid, and protonix. His symptoms improved after two days. He had no hematemesis or bloody stools during his stay. His Hgb was monitored and remained stable at 9.9. Dr. Barbosa was consulted and recommended outpatient follow up with him for endoscopy in two weeks. Patient was discharged home. - Discharge Plan *PRESCRIPTION DRUG MONITORING PROGRAM REVIEWED*: No *COPY OF PRESCRIPTION DRUG MONITORING REPORT IN PATIENT IVELISSE: No Prescriptions/Med Rec: Pantoprazole Sodium [Protonix] 40 mg PO DAILY #30 tablet.dr Flores Medications: Home Meds Omeprazole Magnesium [Prilosec Otc] 40 mg PO DAILY 07/15/17 [History] Doxazosin [Cardura] 2 mg PO BEDTIME 09/25/17 [History] Enalapril [Vasotec] 40 mg PO BEDTIME 09/25/17 [History] Torsemide 20 mg PO DAILY 09/25/17 [History] amLODIPine Besylate [Amlodipine Besylate] 10 mg PO BEDTIME 09/25/17 [History] Ferrous Sulfate 324 mg PO DAILY 01/20/18 [History] hydrALAZINE [Apresoline] 25 mg PO TID 30 Days #90 tablet 01/29/18 [Rx] Insulin Glarg,Human.Rec.Analog [Lantus Solostar] 50 units SUBCUT BEDTIME [History] Insulin Aspart [NovoLOG] 0 unit SUBCUT ASDIRECTED PRN 05/23/18 [History] Spironolactone [Aldactone] 25 mg PO DAILY 12/14/18 [History] hydroCHLOROthiazide [Hydrochlorothiazide] 25 mg PO DAILY 12/14/18 [History] Aspirin [Halfprin] 81 mg PO DAILY #30 tab.ec 12/15/18 [Rx] atorvaSTATin [Lipitor] 80 mg PO BEDTIME #60 tablet 12/15/18 [Rx] Metoclopramide [Reglan] 5 mg PO TIDAC #90 tab 03/11/19 [Rx] Pantoprazole Sodium [Protonix] 40 mg PO DAILY #30 tablet. 03/28/19 [Rx] Forms: ED Department Discharge Referrals: PCP,Unknown [Primary Care Provider] - - Discharge Summary/Plan Comment DC Time >30 min.: No - Patient Data Vitals - Most Recent: Last Vital Signs Temp 36.7 C 03/28/19 08:00 Pulse 89 03/28/19 11:00 Resp 13 03/28/19 11:00 BP 153/92 H 03/28/19 11:00 Pulse Ox 100 03/28/19 11:00 Weight - Most Recent: 77.428 kg I&O - Last 24 hours: Intake & Output 03/27/19 03/28/19 03/28/19 22:59 06:59 14:59 Intake Total 750 3625 Output Total 775 1340 Balance -25 2285 Lab Results - Last 24 hrs: Laboratory Results - last 24 hr 03/27/19 03/27/19 03/27/19 Range/Units 13:06 14:03 16:17 WBC (4.0-11.0) K/uL RBC (4.50-5.90) M/uL Hgb (13.0-17.0) g/dL Hct (38.0-50.0) % MCV (80.0-98.0) fL MCH (27.0-32.0) pg MCHC (31.0-37.0) g/dL RDW Std Deviation (28.0-62.0) fl RDW Coeff of Dania (11.0-15.0) % Plt Count (150-400) K/uL MPV (7.40-12.00) fL Neut % (Auto) (48.0-80.0) % Lymph % (Auto) (16.0-40.0) % [place] % (Auto) (0.0-15.0) % Eos % (Auto) (0.0-7.0) % Baso % (Auto) (0.0-1.5) % Neut # (Auto) (1.4-5.7) K/uL Lymph # (Auto) (0.6-2.4) K/uL [place] # (Auto) (0.0-0.8) K/uL Eos # (Auto) (0.0-0.7) K/uL Baso # (Auto) (0.0-0.1) K/uL Nucleated RBC % /100WBC Nucleated RBCs # K/uL Sodium (136-148) mmol/L Potassium (3.5-5.1) mmol/L Chloride (98-107) mmol/L Carbon Dioxide (21.0-32.0) mmol/L BUN (7.0-18.0) mg/dL Creatinine (0.8-1.3) mg/dL Est Cr Clr Drug Dosing mL/min Estimated GFR (MDRD) ml/min Glucose (74-106) mg/dL POC Glucose 105 222 H (60-110) mg/dL Calcium (8.5-10.1) mg/dL Troponin I < 0.050 (0.000-0.056) ng/mL 03/27/19 03/27/19 03/28/19 Range/Units 20:11 21:47 00:53 WBC (4.0-11.0) K/uL RBC (4.50-5.90) M/uL Hgb (13.0-17.0) g/dL Hct (38.0-50.0) % MCV (80.0-98.0) fL MCH (27.0-32.0) pg MCHC (31.0-37.0) g/dL RDW Std Deviation (28.0-62.0) fl RDW Coeff of Dania (11.0-15.0) % Plt Count (150-400) K/uL MPV (7.40-12.00) fL Neut % (Auto) (48.0-80.0) % Lymph % (Auto) (16.0-40.0) % [place] % (Auto) (0.0-15.0) % Eos % (Auto) (0.0-7.0) % Baso % (Auto) (0.0-1.5) % Neut # (Auto) (1.4-5.7) K/uL Lymph # (Auto) (0.6-2.4) K/uL [place] # (Auto) (0.0-0.8) K/uL Eos # (Auto) (0.0-0.7) K/uL Baso # (Auto) (0.0-0.1) K/uL Nucleated RBC % /100WBC Nucleated RBCs # K/uL Sodium (136-148) mmol/L Potassium (3.5-5.1) mmol/L Chloride (98-107) mmol/L Carbon Dioxide (21.0-32.0) mmol/L BUN (7.0-18.0) mg/dL Creatinine (0.8-1.3) mg/dL Est Cr Clr Drug Dosing mL/min Estimated GFR (MDRD) ml/min Glucose (74-106) mg/dL POC Glucose 209 H 132 H (60-110) mg/dL Calcium (8.5-10.1) mg/dL Troponin I < 0.050 (0.000-0.056) ng/mL 03/28/19 03/28/19 03/28/19 Range/Units 04:05 05:48 05:48 WBC 7.75 (4.0-11.0) K/uL RBC 4.79 (4.50-5.90) M/uL Hgb 9.9 L (13.0-17.0) g/dL Hct 32.1 L (38.0-50.0) % MCV 67.0 L (80.0-98.0) fL MCH 20.7 L (27.0-32.0) pg MCHC 30.8 L (31.0-37.0) g/dL RDW Std Deviation 39.4 (28.0-62.0) fl RDW Coeff of Dania 16 H (11.0-15.0) % Plt Count 352 (150-400) K/uL MPV 10.00 (7.40-12.00) fL Neut % (Auto) 56.9 (48.0-80.0) % Lymph % (Auto) 33.4 (16.0-40.0) % [place] % (Auto) 5.0 (0.0-15.0) % Eos % (Auto) 4.1 (0.0-7.0) % Baso % (Auto) 0.6 (0.0-1.5) % Neut # (Auto) 4.4 (1.4-5.7) K/uL Lymph # (Auto) 2.6 H (0.6-2.4) K/uL [place] # (Auto) 0.4 (0.0-0.8) K/uL Eos # (Auto) 0.3 (0.0-0.7) K/uL Baso # (Auto) 0.1 (0.0-0.1) K/uL Nucleated RBC % 0.0 /100WBC Nucleated RBCs # 0 K/uL Sodium 141 (136-148) mmol/L Potassium 4.0 (3.5-5.1) mmol/L Chloride 108 H (98-107) mmol/L Carbon Dioxide 21.6 (21.0-32.0) mmol/L BUN 22 H (7.0-18.0) mg/dL Creatinine 1.8 H (0.8-1.3) mg/dL Est Cr Clr Drug Dosing 60.83 mL/min Estimated GFR (MDRD) 53.3 ml/min Glucose 172 H (74-106) mg/dL POC Glucose 203 H (60-110) mg/dL Calcium 8.3 L (8.5-10.1) mg/dL Troponin I (0.000-0.056) ng/mL 03/28/19 03/28/19 03/28/19 Range/Units 05:48 07:49 09:47 WBC (4.0-11.0) K/uL RBC (4.50-5.90) M/uL Hgb (13.0-17.0) g/dL Hct (38.0-50.0) % MCV (80.0-98.0) fL MCH (27.0-32.0) pg MCHC (31.0-37.0) g/dL RDW Std Deviation (28.0-62.0) fl RDW Coeff of Dania (11.0-15.0) % Plt Count (150-400) K/uL MPV (7.40-12.00) fL Neut % (Auto) (48.0-80.0) % Lymph % (Auto) (16.0-40.0) % [place] % (Auto) (0.0-15.0) % Eos % (Auto) (0.0-7.0) % Baso % (Auto) (0.0-1.5) % Neut # (Auto) (1.4-5.7) K/uL Lymph # (Auto) (0.6-2.4) K/uL [place] # (Auto) (0.0-0.8) K/uL Eos # (Auto) (0.0-0.7) K/uL Baso # (Auto) (0.0-0.1) K/uL Nucleated RBC % /100WBC Nucleated RBCs # K/uL Sodium (136-148) mmol/L Potassium (3.5-5.1) mmol/L Chloride (98-107) mmol/L Carbon Dioxide (21.0-32.0) mmol/L BUN (7.0-18.0) mg/dL Creatinine (0.8-1.3) mg/dL Est Cr Clr Drug Dosing mL/min Estimated GFR (MDRD) ml/min Glucose (74-106) mg/dL POC Glucose 162 H 244 H (60-110) mg/dL Calcium (8.5-10.1) mg/dL Troponin I < 0.050 (0.000-0.056) ng/mL Med Orders - Current: Current Medications Amlodipine Besylate (Norvasc) 10 mg PO BEDTIME MICHAEL Last Admin: 03/27/19 20:13 Dose: 10 mg Enalapril Maleate (Vasotec) 40 mg PO BEDTIME MICHAEL Last Admin: 03/27/19 20:12 Dose: 40 mg Hydralazine HCl (Apresoline) 25 mg PO TID MICHAEL Last Admin: 03/28/19 07:27 Dose: Not Given Hydralazine HCl (Apresoline) 10 mg IVPUSH Q6H PRN PRN Reason: Hypertension Last Admin: 03/27/19 18:54 Dose: 10 mg Hydrochlorothiazide (Hydrochlorothiazide) 25 mg PO DAILY [facility] Last Admin: 03/27/19 10:41 Dose: 25 mg Sodium Chloride (Normal Saline) 1,000 mls @ 125 mls/hr IV ASDIRECTED MICHAEL Last Admin: 03/28/19 04:09 Dose: 125 mls/hr Insulin Human Regular 100 unit (/ Sodium Chloride) 100 mls @ 2 mls/hr IV TITRATE MICHAEL; Protocol Nicardipine HCl (Cardene 20 Mg In Ns 200 Ml) 20 mg in 200 mls @ 50 mls/hr IV TITRATE MICHAEL; Protocol Insulin Aspart (Novolog) 0 unit SUBCUT Q6H MICHAEL; Protocol Last Admin: 03/28/19 09:50 Dose: 4 unit Insulin Glargine (Lantus Solostar) 50 units SUBCUT BEDTIME MICHAEL Labetalol HCl (Normodyne) 10 mg IVPUSH Q4H PRN; Protocol PRN Reason: Hypertension Last Admin: 03/27/19 15:25 Dose: 10 mg Morphine Sulfate (Morphine) 2 mg IVPUSH Q2H PRN PRN Reason: Nausea Last Admin: 03/28/19 04:22 Dose: 2 mg Nitroglycerin (Nitrostat) 0.4 mg SL Q5M PRN PRN Reason: Chest Pain Ondansetron HCl (Zofran) 4 mg IVPUSH Q4H PRN PRN Reason: Nausea Last Admin: 03/28/19 04:33 Dose: 4 mg Pantoprazole Sodium (Protonix Iv) 40 mg IV Q12HR MICHAEL Last Admin: 03/28/19 09:32 Dose: 40 mg Promethazine HCl (Phenergan) 25 mg IM Q6H PRN PRN Reason: Nausea Last Admin: 03/28/19 05:59 Dose: 25 mg Sodium Chloride (Saline Flush) 10 ml FLUSH ASDIRECTED PRN PRN Reason: Keep Vein Open Sodium Chloride (Saline Flush) 2.5 ml FLUSH ASDIRECTED PRN PRN Reason: Keep Vein Open Discontinued Medications Hydralazine HCl (Apresoline) 25 mg PO TID [facility] Hydromorphone HCl (Dilaudid) 0.5 mg IVPUSH ONETIME ONE Stop: 03/26/19 09:58 Last Admin: 03/26/19 10:18 Dose: Not Given Hydromorphone HCl (Dilaudid) 0.5 mg IVPUSH ONETIME ONE Stop: 03/26/19 10:07 Last Admin: 03/26/19 10:14 Dose: 0.5 mg Hydromorphone HCl (Dilaudid) 0.5 mg IVPUSH ONETIME ONE Stop: 03/26/19 11:10 Last Admin: 03/26/19 11:21 Dose: 0.5 mg Sodium Chloride (Normal Saline) 1,000 mls @ 999 mls/hr IV .Bolus ONE Stop: 03/26/19 10:19 Last Admin: 03/26/19 09:25 Dose: 999 mls/hr Sodium Chloride (Normal Saline) Confirm Administered Dose 20 mls @ as directed .ROUTE .STK-MED ONE Stop: 03/26/19 09:31 Last Admin: 03/26/19 10:23 Dose: Not Given Insulin Aspart (Novolog) 0 unit SUBCUT Q6HR MICHAEL; Protocol Last Admin: 03/26/19 14:35 Dose: Not Given Insulin Aspart (Novolog) 10 unit SUBCUT STAT ONE Stop: 03/26/19 14:31 Last Admin: 03/26/19 14:20 Dose: 10 unit Insulin Aspart (Novolog) 0 unit SUBCUT Q6H MICHAEL; Protocol Last Admin: 03/26/19 16:07 Dose: Not Given Insulin Aspart (Novolog) 10 unit SUBCUT STAT MICHAEL Stop: 03/26/19 16:05 Last Admin: 03/26/19 16:03 Dose: 10 units Insulin Aspart (Novolog) 4 unit SUBCUT ONETIME ONE Stop: 03/27/19 06:45 Last Admin: 03/27/19 06:54 Dose: 4 units Insulin Aspart (Novolog) 8 unit SUBCUT STAT ONE Stop: 03/27/19 08:21 Last Admin: 03/27/19 08:34 Dose: 8 units Labetalol HCl (Normodyne) Confirm Administered Dose 100 mg .ROUTE .STK-MED ONE Stop: 03/26/19 09:44 Last Admin: 03/26/19 10:23 Dose: Not Given Labetalol HCl (Normodyne) 20 mg IVPUSH ONETIME ONE; Protocol Stop: 03/26/19 09:48 Last Admin: 03/26/19 10:13 Dose: 10 mg Metoclopramide HCl (Reglan) 10 mg IVPUSH ONETIME ONE Stop: 03/26/19 11:10 Last Admin: 03/26/19 11:21 Dose: 10 mg Metoprolol Tartrate (Lopressor) 5 mg IVPUSH ONETIME ONE Stop: 03/28/19 05:35 Last Admin: 03/28/19 05:43 Dose: 5 mg Morphine Sulfate (Morphine) 4 mg IVPUSH ONETIME ONE Stop: 03/26/19 09:20 Last Admin: 03/26/19 09:25 Dose: 4 mg Morphine Sulfate (Morphine) 4 mg IVPUSH ONETIME ONE Stop: 03/27/19 08:24 Last Admin: 03/27/19 09:24 Dose: Not Given Morphine Sulfate (Morphine) 2 mg IVPUSH ONETIME ONE Stop: 03/28/19 05:59 Last Admin: 03/28/19 06:00 Dose: 2 mg Nitroglycerin (Nitrostat) Confirm Administered Dose 0.4 mg .ROUTE .STK-MED ONE Stop: 03/27/19 08:13 Last Admin: 03/27/19 13:03 Dose: Not Given Ondansetron HCl (Zofran) 4 mg IVPUSH ONETIME ONE Stop: 03/26/19 09:20 Last Admin: 03/26/19 09:25 Dose: 4 mg Pantoprazole Sodium (Protonix Iv) 80 mg IVPUSH .BOLUS ONE Stop: 03/26/19 09:21 Last Admin: 03/26/19 09:39 Dose: 80 mg Promethazine HCl (Phenergan) 25 mg IM ONETIME ONE Stop: 03/28/19 05:58 Last Admin: 03/28/19 06:17 Dose: Not Given
--- NOTE | 2019-03-28 11:50 | PCM.SURGPN ---
- General Info Date of Service: 03/28/19 Functional Status: Reports: Pain Controlled - Review of Systems General: Reports: No Symptoms Gastrointestinal: Reports: No Symptoms (emisis X 2 this am; doing fine now) - Patient Data Vitals - Most Recent: Last Vital Signs Temp 98.0 F 03/28/19 08:00 Pulse 89 03/28/19 11:00 Resp 13 03/28/19 11:00 BP 153/92 H 03/28/19 11:00 Pulse Ox 100 03/28/19 11:00 Weight - Most Recent: 170 lb 11.2 oz I&O - Last 24 Hours: Intake & Output 03/27/19 03/28/19 03/28/19 22:59 06:59 14:59 Intake Total 750 3625 Output Total 775 1340 Balance -25 2285 Lab Results Last 24 Hrs: Laboratory Results - last 24 hr 03/27/19 03/27/19 03/27/19 Range/Units 13:06 14:03 16:17 WBC (4.0-11.0) K/uL RBC (4.50-5.90) M/uL Hgb (13.0-17.0) g/dL Hct (38.0-50.0) % MCV (80.0-98.0) fL MCH (27.0-32.0) pg MCHC (31.0-37.0) g/dL RDW Std Deviation (28.0-62.0) fl RDW Coeff of Dania (11.0-15.0) % Plt Count (150-400) K/uL MPV (7.40-12.00) fL Neut % (Auto) (48.0-80.0) % Lymph % (Auto) (16.0-40.0) % [place] % (Auto) (0.0-15.0) % Eos % (Auto) (0.0-7.0) % Baso % (Auto) (0.0-1.5) % Neut # (Auto) (1.4-5.7) K/uL Lymph # (Auto) (0.6-2.4) K/uL [place] # (Auto) (0.0-0.8) K/uL Eos # (Auto) (0.0-0.7) K/uL Baso # (Auto) (0.0-0.1) K/uL Nucleated RBC % /100WBC Nucleated RBCs # K/uL Sodium (136-148) mmol/L Potassium (3.5-5.1) mmol/L Chloride (98-107) mmol/L Carbon Dioxide (21.0-32.0) mmol/L BUN (7.0-18.0) mg/dL Creatinine (0.8-1.3) mg/dL Est Cr Clr Drug Dosing mL/min Estimated GFR (MDRD) ml/min Glucose (74-106) mg/dL POC Glucose 105 222 H (60-110) mg/dL Calcium (8.5-10.1) mg/dL Troponin I < 0.050 (0.000-0.056) ng/mL 03/27/19 03/27/19 03/28/19 Range/Units 20:11 21:47 00:53 WBC (4.0-11.0) K/uL RBC (4.50-5.90) M/uL Hgb (13.0-17.0) g/dL Hct (38.0-50.0) % MCV (80.0-98.0) fL MCH (27.0-32.0) pg MCHC (31.0-37.0) g/dL RDW Std Deviation (28.0-62.0) fl RDW Coeff of Dania (11.0-15.0) % Plt Count (150-400) K/uL MPV (7.40-12.00) fL Neut % (Auto) (48.0-80.0) % Lymph % (Auto) (16.0-40.0) % [place] % (Auto) (0.0-15.0) % Eos % (Auto) (0.0-7.0) % Baso % (Auto) (0.0-1.5) % Neut # (Auto) (1.4-5.7) K/uL Lymph # (Auto) (0.6-2.4) K/uL [place] # (Auto) (0.0-0.8) K/uL Eos # (Auto) (0.0-0.7) K/uL Baso # (Auto) (0.0-0.1) K/uL Nucleated RBC % /100WBC Nucleated RBCs # K/uL Sodium (136-148) mmol/L Potassium (3.5-5.1) mmol/L Chloride (98-107) mmol/L Carbon Dioxide (21.0-32.0) mmol/L BUN (7.0-18.0) mg/dL Creatinine (0.8-1.3) mg/dL Est Cr Clr Drug Dosing mL/min Estimated GFR (MDRD) ml/min Glucose (74-106) mg/dL POC Glucose 209 H 132 H (60-110) mg/dL Calcium (8.5-10.1) mg/dL Troponin I < 0.050 (0.000-0.056) ng/mL 03/28/19 03/28/19 03/28/19 Range/Units 04:05 05:48 05:48 WBC 7.75 (4.0-11.0) K/uL RBC 4.79 (4.50-5.90) M/uL Hgb 9.9 L (13.0-17.0) g/dL Hct 32.1 L (38.0-50.0) % MCV 67.0 L (80.0-98.0) fL MCH 20.7 L (27.0-32.0) pg MCHC 30.8 L (31.0-37.0) g/dL RDW Std Deviation 39.4 (28.0-62.0) fl RDW Coeff of Dania 16 H (11.0-15.0) % Plt Count 352 (150-400) K/uL MPV 10.00 (7.40-12.00) fL Neut % (Auto) 56.9 (48.0-80.0) % Lymph % (Auto) 33.4 (16.0-40.0) % [place] % (Auto) 5.0 (0.0-15.0) % Eos % (Auto) 4.1 (0.0-7.0) % Baso % (Auto) 0.6 (0.0-1.5) % Neut # (Auto) 4.4 (1.4-5.7) K/uL Lymph # (Auto) 2.6 H (0.6-2.4) K/uL [place] # (Auto) 0.4 (0.0-0.8) K/uL Eos # (Auto) 0.3 (0.0-0.7) K/uL Baso # (Auto) 0.1 (0.0-0.1) K/uL Nucleated RBC % 0.0 /100WBC Nucleated RBCs # 0 K/uL Sodium 141 (136-148) mmol/L Potassium 4.0 (3.5-5.1) mmol/L Chloride 108 H (98-107) mmol/L Carbon Dioxide 21.6 (21.0-32.0) mmol/L BUN 22 H (7.0-18.0) mg/dL Creatinine 1.8 H (0.8-1.3) mg/dL Est Cr Clr Drug Dosing 60.83 mL/min Estimated GFR (MDRD) 53.3 ml/min Glucose 172 H (74-106) mg/dL POC Glucose 203 H (60-110) mg/dL Calcium 8.3 L (8.5-10.1) mg/dL Troponin I (0.000-0.056) ng/mL 03/28/19 03/28/19 03/28/19 Range/Units 05:48 07:49 09:47 WBC (4.0-11.0) K/uL RBC (4.50-5.90) M/uL Hgb (13.0-17.0) g/dL Hct (38.0-50.0) % MCV (80.0-98.0) fL MCH (27.0-32.0) pg MCHC (31.0-37.0) g/dL RDW Std Deviation (28.0-62.0) fl RDW Coeff of Dania (11.0-15.0) % Plt Count (150-400) K/uL MPV (7.40-12.00) fL Neut % (Auto) (48.0-80.0) % Lymph % (Auto) (16.0-40.0) % [place] % (Auto) (0.0-15.0) % Eos % (Auto) (0.0-7.0) % Baso % (Auto) (0.0-1.5) % Neut # (Auto) (1.4-5.7) K/uL Lymph # (Auto) (0.6-2.4) K/uL [place] # (Auto) (0.0-0.8) K/uL Eos # (Auto) (0.0-0.7) K/uL Baso # (Auto) (0.0-0.1) K/uL Nucleated RBC % /100WBC Nucleated RBCs # K/uL Sodium (136-148) mmol/L Potassium (3.5-5.1) mmol/L Chloride (98-107) mmol/L Carbon Dioxide (21.0-32.0) mmol/L BUN (7.0-18.0) mg/dL Creatinine (0.8-1.3) mg/dL Est Cr Clr Drug Dosing mL/min Estimated GFR (MDRD) ml/min Glucose (74-106) mg/dL POC Glucose 162 H 244 H (60-110) mg/dL Calcium (8.5-10.1) mg/dL Troponin I < 0.050 (0.000-0.056) ng/mL Med Orders - Current: Current Medications Amlodipine Besylate (Norvasc) 10 mg PO BEDTIME MICHAEL Last Admin: 03/27/19 20:13 Dose: 10 mg Enalapril Maleate (Vasotec) 40 mg PO BEDTIME MICHAEL Last Admin: 03/27/19 20:12 Dose: 40 mg Hydralazine HCl (Apresoline) 25 mg PO TID MICHAEL Last Admin: 03/28/19 07:27 Dose: Not Given Hydralazine HCl (Apresoline) 10 mg IVPUSH Q6H PRN PRN Reason: Hypertension Last Admin: 03/27/19 18:54 Dose: 10 mg Hydrochlorothiazide (Hydrochlorothiazide) 25 mg PO DAILY MICHAEL Last Admin: 03/27/19 10:41 Dose: 25 mg Sodium Chloride (Normal Saline) 1,000 mls @ 125 mls/hr IV ASDIRECTED MICHAEL Last Admin: 03/28/19 04:09 Dose: 125 mls/hr Insulin Human Regular 100 unit (/ Sodium Chloride) 100 mls @ 2 mls/hr IV TITRATE MICHAEL; Protocol Nicardipine HCl (Cardene 20 Mg In Ns 200 Ml) 20 mg in 200 mls @ 50 mls/hr IV TITRATE MICHAEL; Protocol Insulin Aspart (Novolog) 0 unit SUBCUT Q6H MICHAEL; Protocol Last Admin: 03/28/19 09:50 Dose: 4 unit Insulin Glargine (Lantus Solostar) 50 units SUBCUT BEDTIME MICHAEL Labetalol HCl (Normodyne) 10 mg IVPUSH Q4H PRN; Protocol PRN Reason: Hypertension Last Admin: 03/27/19 15:25 Dose: 10 mg Morphine Sulfate (Morphine) 2 mg IVPUSH Q2H PRN PRN Reason: Nausea Last Admin: 03/28/19 04:22 Dose: 2 mg Nitroglycerin (Nitrostat) 0.4 mg SL Q5M PRN PRN Reason: Chest Pain Ondansetron HCl (Zofran) 4 mg IVPUSH Q4H PRN PRN Reason: Nausea Last Admin: 03/28/19 04:33 Dose: 4 mg Pantoprazole Sodium (Protonix Iv) 40 mg IV Q12HR MICHAEL Last Admin: 03/28/19 09:32 Dose: 40 mg Promethazine HCl (Phenergan) 25 mg IM Q6H PRN PRN Reason: Nausea Last Admin: 03/28/19 05:59 Dose: 25 mg Sodium Chloride (Saline Flush) 10 ml FLUSH ASDIRECTED PRN PRN Reason: Keep Vein Open Sodium Chloride (Saline Flush) 2.5 ml FLUSH ASDIRECTED PRN PRN Reason: Keep Vein Open Discontinued Medications Hydralazine HCl (Apresoline) 25 mg PO TID MICHAEL Hydromorphone HCl (Dilaudid) 0.5 mg IVPUSH ONETIME ONE Stop: 03/26/19 09:58 Last Admin: 03/26/19 10:18 Dose: Not Given Hydromorphone HCl (Dilaudid) 0.5 mg IVPUSH ONETIME ONE Stop: 03/26/19 10:07 Last Admin: 03/26/19 10:14 Dose: 0.5 mg Hydromorphone HCl (Dilaudid) 0.5 mg IVPUSH ONETIME ONE Stop: 03/26/19 11:10 Last Admin: 03/26/19 11:21 Dose: 0.5 mg Sodium Chloride (Normal Saline) 1,000 mls @ 999 mls/hr IV .Bolus ONE Stop: 03/26/19 10:19 Last Admin: 03/26/19 09:25 Dose: 999 mls/hr Sodium Chloride (Normal Saline) Confirm Administered Dose 20 mls @ as directed .ROUTE .STK-MED ONE Stop: 03/26/19 09:31 Last Admin: 03/26/19 10:23 Dose: Not Given Insulin Aspart (Novolog) 0 unit SUBCUT Q6HR MICHAEL; Protocol Last Admin: 03/26/19 14:35 Dose: Not Given Insulin Aspart (Novolog) 10 unit SUBCUT STAT ONE Stop: 03/26/19 14:31 Last Admin: 03/26/19 14:20 Dose: 10 unit Insulin Aspart (Novolog) 0 unit SUBCUT Q6H MICHAEL; Protocol Last Admin: 03/26/19 16:07 Dose: Not Given Insulin Aspart (Novolog) 10 unit SUBCUT STAT MICHAEL Stop: 03/26/19 16:05 Last Admin: 03/26/19 16:03 Dose: 10 units Insulin Aspart (Novolog) 4 unit SUBCUT ONETIME ONE Stop: 03/27/19 06:45 Last Admin: 03/27/19 06:54 Dose: 4 units Insulin Aspart (Novolog) 8 unit SUBCUT STAT ONE Stop: 03/27/19 08:21 Last Admin: 03/27/19 08:34 Dose: 8 units Labetalol HCl (Normodyne) Confirm Administered Dose 100 mg .ROUTE .STK-MED ONE Stop: 03/26/19 09:44 Last Admin: 03/26/19 10:23 Dose: Not Given Labetalol HCl (Normodyne) 20 mg IVPUSH ONETIME ONE; Protocol Stop: 03/26/19 09:48 Last Admin: 03/26/19 10:13 Dose: 10 mg Metoclopramide HCl (Reglan) 10 mg IVPUSH ONETIME ONE Stop: 03/26/19 11:10 Last Admin: 03/26/19 11:21 Dose: 10 mg Metoprolol Tartrate (Lopressor) 5 mg IVPUSH ONETIME ONE Stop: 03/28/19 05:35 Last Admin: 03/28/19 05:43 Dose: 5 mg Morphine Sulfate (Morphine) 4 mg IVPUSH ONETIME ONE Stop: 03/26/19 09:20 Last Admin: 03/26/19 09:25 Dose: 4 mg Morphine Sulfate (Morphine) 4 mg IVPUSH ONETIME ONE Stop: 03/27/19 08:24 Last Admin: 03/27/19 09:24 Dose: Not Given Morphine Sulfate (Morphine) 2 mg IVPUSH ONETIME ONE Stop: 03/28/19 05:59 Last Admin: 03/28/19 06:00 Dose: 2 mg Nitroglycerin (Nitrostat) Confirm Administered Dose 0.4 mg .ROUTE .STK-MED ONE Stop: 03/27/19 08:13 Last Admin: 03/27/19 13:03 Dose: Not Given Ondansetron HCl (Zofran) 4 mg IVPUSH ONETIME ONE Stop: 03/26/19 09:20 Last Admin: 03/26/19 09:25 Dose: 4 mg Pantoprazole Sodium (Protonix Iv) 80 mg IVPUSH .BOLUS ONE Stop: 03/26/19 09:21 Last Admin: 03/26/19 09:39 Dose: 80 mg Promethazine HCl (Phenergan) 25 mg IM ONETIME ONE Stop: 03/28/19 05:58 Last Admin: 03/28/19 06:17 Dose: Not Given - Exam GI/Abdominal Exam: Normal Bowel Sounds, Soft - Problem List Review Problem List Initiated/Reviewed/Updated: Yes - My Orders Last 24 Hours: Active Orders 24 hr Category Date Time Status Accu Check [Blood Glucose Check, Bedside] [RC] Q6H Care 03/27/19 22:00 Active EKG Documentation Completion [RC] URGENT Care 03/28/19 05:34 Active Ready for Discharge [RC] PER UNIT ROUTINE Care 03/28/19 11:11 Active BASIC METABOLIC PANEL,BMP [CHEM] AM Lab 03/29/19 05:11 Ordered CBC WITH AUTO DIFF [HEME] AM Lab 03/29/19 05:11 Ordered Enalapril [Vasotec] Med 03/27/19 21:00 Active 40 mg PO BEDTIME Insulin Glarg,Human.Rec.Analog [LantUS Solostar] Med 03/28/19 21:00 Active 50 units SUBCUT BEDTIME Nitroglycerin [Nitrostat] Med 03/27/19 12:26 Active 0.4 mg SL Q5M PRN amLODIPine [Norvasc] Med 03/27/19 21:00 Active 10 mg PO BEDTIME hydrALAZINE [Apresoline] Med 03/27/19 18:35 Active 10 mg IVPUSH Q6H PRN niCARdipine/Normal Saline [Cardene 20 MG in NS 200 ML] Med 03/28/19 06:00 Active 20 mg in 200 ml IV TITRATE Medication Orders Amlodipine Besylate (Norvasc) 10 mg PO BEDTIME MICHAEL Last Admin: 03/27/19 20:13 Dose: 10 mg Enalapril Maleate (Vasotec) 40 mg PO BEDTIME MICHAEL Last Admin: 03/27/19 20:12 Dose: 40 mg Hydralazine HCl (Apresoline) 25 mg PO TID MICHAEL Last Admin: 03/28/19 07:27 Dose: Admin: 03/27/19 21:51 Dose: 25 mg Admin: 03/27/19 14:05 Dose: 25 mg Admin: 03/27/19 10:42 Dose: 25 mg Hydralazine HCl (Apresoline) 10 mg IVPUSH Q6H PRN PRN Reason: Hypertension Last Admin: 03/27/19 18:54 Dose: 10 mg Hydrochlorothiazide (Hydrochlorothiazide) 25 mg PO DAILY MICHAEL Last Admin: 03/27/19 10:41 Dose: 25 mg Sodium Chloride (Normal Saline) 1,000 mls @ 125 mls/hr IV ASDIRECTED MICHAEL Last Admin: 03/28/19 04:09 Dose: 125 mls/hr Infusion: 03/28/19 04:09 Dose: 125 mls/hr Admin: 03/27/19 20:11 Dose: 125 mls/hr Infusion: 03/27/19 20:11 Dose: 125 mls/hr Admin: 03/27/19 12:14 Dose: 125 mls/hr Admin: 03/26/19 21:29 Dose: 125 mls/hr Infusion: 03/26/19 21:29 Dose: 125 mls/hr Admin: 03/26/19 13:52 Dose: 125 mls/hr Insulin Human Regular 100 unit (/ Sodium Chloride) 100 mls @ 2 mls/hr IV TITRATE MICHAEL; Protocol Nicardipine HCl (Cardene 20 Mg In Ns 200 Ml) 20 mg in 200 mls @ 50 mls/hr IV TITRATE MICHAEL; Protocol Insulin Aspart (Novolog) 0 unit SUBCUT Q6H MICHAEL; Protocol Last Admin: 03/28/19 09:50 Dose: 4 unit Admin: 03/28/19 04:08 Dose: 4 unit Admin: 03/27/19 21:49 Dose: 4 unit Admin: 03/27/19 16:18 Dose: 4 unit Admin: 03/27/19 10:03 Dose: 4 unit Admin: 03/27/19 07:26 Dose: Admin: 03/27/19 07:26 Dose: Admin: 03/26/19 16:04 Dose: Not Given Insulin Glargine (Lantus Solostar) 50 units SUBCUT BEDTIME MICHAEL Labetalol HCl (Normodyne) 10 mg IVPUSH Q4H PRN; Protocol PRN Reason: Hypertension Last Admin: 03/27/19 15:25 Dose: 10 mg Admin: 03/27/19 08:03 Dose: 10 mg Admin: 03/27/19 00:25 Dose: 10 mg Morphine Sulfate (Morphine) 2 mg IVPUSH Q2H PRN PRN Reason: Nausea Last Admin: 03/28/19 04:22 Dose: 2 mg Admin: 03/27/19 10:57 Dose: 2 mg Admin: 03/27/19 08:24 Dose: 2 mg Nitroglycerin (Nitrostat) 0.4 mg SL Q5M PRN PRN Reason: Chest Pain Ondansetron HCl (Zofran) 4 mg IVPUSH Q4H PRN PRN Reason: Nausea Last Admin: 03/28/19 04:33 Dose: 4 mg Admin: 03/26/19 15:57 Dose: 4 mg Pantoprazole Sodium (Protonix Iv) 40 mg IV Q12HR MICHAEL Last Admin: 03/28/19 09:32 Dose: 40 mg Admin: 03/27/19 20:13 Dose: 40 mg Admin: 03/27/19 09:27 Dose: 40 mg Admin: 03/26/19 21:36 Dose: 40 mg Promethazine HCl (Phenergan) 25 mg IM Q6H PRN PRN Reason: Nausea Last Admin: 03/28/19 05:59 Dose: 25 mg Sodium Chloride (Saline Flush) 10 ml FLUSH ASDIRECTED PRN PRN Reason: Keep Vein Open Sodium Chloride (Saline Flush) 2.5 ml FLUSH ASDIRECTED PRN PRN Reason: Keep Vein Open - Assessment Assessment (Free Text/Narrative):: resolved abd pain and h/h stable; emisis not coffee ground; resolved gastritis/ UGI bleed; agree with adv diet gingerly, ok to send home on full liquid diet; maybe dulcolax per rectum X 1 as pt has no BM X 3 days; fu 1 - 2 wks for possible endoscope studies; thanks for the consult and care of this pleasant gentlement - Plan Plan (Free Text/Narrative):: resolved abd pain and h/h stable; emisis not coffee ground; resolved gastritis/ UGI bleed; agree with adv diet gingerly, ok to send home on full liquid diet; maybe dulcolax per rectum X 1 as pt has no BM X 3 days; fu 1 - 2 wks for possible endoscope studies; thanks for the consult and care of this pleasant gentlement
--- NOTE | 2019-03-28 13:58 | PN ---
THC Physician - Brief Progress [id number]/15/2019 10:13[facility] [address], RAFAEL - BAHMAN (SHILOH) - ISIDORON DAWOOD SARAVIADate of Service 03/28/2019 10:13HPI/Events of Note eICU NoteHad n/v overnightWas hypertensiveAble to take PO meds nowNo further GIBGlu under miller sonable control with ISS / Lantus not orderedIssuesN/V - hx of gastroparesisClear fluids - advance as tolerated Restart Lantus 50 qhs (reduce if doesn't eat today)HTN under controld/c planning with outp t support as outline previouslyReviewed plan with bedside RNcall with questionsInterventions Intermed iate-Hyperglycemia - evaluation and treatmentElectronically Signed by: MICHELLE GONZALEZ) on 0 03/28/2019 10:22
--- NOTE | 2019-03-28 13:58 | PN ---
THC Physician - Brief Progress [id number]/14/2019 09:27[facility] [place], [place] [facility] MWN DAWOOD SARAVIA.Date of Service 03/27/2019 09:27HPI/Events of Note eICU Progress NotePt was admitted 03/26 with UGIB. Hgb has gone from 11 to 9.4, but he has had no additional episodes of coffee ground emesis since admission. GI does not plan to scope him this v isit since they have performed multiple EGD's in the past with no findings. He was going to be d/c'ed today to f/u as an outpt with Heme/Onc, but will remain in the unit one more day after his chest mary jane n episode this am. He continues to rest comfortably, his trop and EKG were negative and his SBP is no w 148. His nurse Shira did discuss with him the gravity of his health and the need to manage his DM be tter. He would benefit from CM f/u or a home program to manage his DM/health overall. Case was discus sed with his nurse Shira.eICU Recs:1) Continue to trend trops x 22) Resume home BP meds when N/V contr olled3) F/U as an out pt with Heme/Onc and Endocrine4) BG management5) Consider CM/SW support upon d/ c for f/u and assistance in better DM management/supportInterventions Major-Hyperglycemia - active ti tration of insulin therapy, Hypertension - evaluation and managementIntermediate-Bleeding - evaluatio n and treatment with blood products, Communication with other healthcare providers and/or family, Med ication change / dose adjustment, Pain - evaluation and management
--- NOTE | 2019-03-28 13:58 | PN ---
THC Physician - Brief Progress [id number]/15/2019 05:56[facility] [address], RAFAEL - ISIDORON [facility] - ISIDORON DAWOOD SARAVIADate of Service 03/28/2019 05:56HPI/Events of Note Discussed with RN: Pt continues with N/V despite zofran and now with increased BP despite lo pressor.204/119 Plan: awaiting trops and EKG, satrt cardene for BP control, add phenrgan PRN, dose morphine for pain control.Interventions Minor-Communication with other healthcare providers and/or fa mily
--- NOTE | 2019-03-28 13:58 | PN ---
THC Physician - Brief Progress [id number]/14/2019 08:26[facility] [place], RAFAEL - BAHMAN (SHILOH) - BAHMAN SARAVIADAWOOD SusanneDate of Service 03/27/2019 08:26HPI/Events of Note eICU Event NotePt started having acute 10/10 crushing chest pain this am. SBP was 210 with a BG of 326. He was given 10 units of regular insulin and 0.4 mg of SL Nitro. EKG and Trops were comple opal and a one time dose of MS was ordered (one time only secondary to his CKD). After 2 SL Nitro, 10 mg IVP of Labetalol and 2 mg of IVP MS, his CP improved and he was able to rest. His EKG did not show acute ST elevation and his trops are being trended. Case was discussed with his nurse Shira.Intervent ions Major-Hyperglycemia - active titration of insulin therapy, Hypertension - evaluation and managem entIntermediate-Communication with other healthcare providers and/or family, Medication change / dose adjustment, Pain - evaluation and managementElectronically Signed by: ERICK AGUERO () on 2018 09:24
--- NOTE | 2019-03-28 13:58 | PN ---
THC Physician - Brief Progress [id number]/14/2019 18:26[facility] [place], RAFAEL - ISIDORON (SHILOH) - DAWOOD LUNADate of Service 03/27/2019 18:26HPI/Events of Note Pt's SBP is still elevated despite PRN Labetalol and resuming his home meds. Will order Hydra lazine 10 mg IVP Q 6 hours PRN SBP > 160 and continue to monitor. His nurse Shira is also requesting t he BG be decreased to Q 6 hours with SSI coverage.Interventions Major-Hyperglycemia - active titratio n of insulin therapy, Hypertension - evaluation and managementIntermediate-Communication with other h ealthcare providers and/or family, Medication change / dose adjustment
--- NOTE | 2019-03-28 13:58 | PN ---
THC Physician - Brief Progress [id number]/13/2019 16:[address] [place], RAFAEL - BAHMAN (SHILOH) - MWN MANJITDAWOOD SusanneDate of Service 03/26/2019 16:10HPI/Events of Note eICU Admit NotePt is a 33 yo M presenting to the ED with N/V and coffee ground emesis. PMH in cludes DM I, CKD III, HTN and Diabetic Gastroparesis. His hgb was 11.0 with no evidence of melena. Hi s BG was also 339, but he is not in DKA. He has been admitted to the ICU for close observation with a GS consult pending. He has not had further N/V since arrival in the ICU and is resting comfortably i n NAD with stable VS. Case was discussed with his nurse Shira. eICU Recs:1) Continue PPI gtt2) Likely EGD with GS3) PRN antiemetics ordered 4) BG coverage with insulin PRN - may transition to a gtt if ne eded5) BP control 6) Monitor HgbInterventions Intermediate-Bleeding - evaluation and treatment with b lood products, Communication with other healthcare providers and/or family
--- NOTE | 2019-03-28 13:58 | PN ---
THC Physician - Brief Progress [id number]/15/2019 05:36[facility] [place], RAFAEL - ISIDORON (SHILOH) - MWN DAWOOD SARAVIADate of Service 03/28/2019 05:36HPI/Events of Note Discussed with RN: Pt with CP/N. Treated with morphine and zofran. Александр have been negative s o far.167/100 113Plan: dose lopressor now, check trop and EKG.Interventions Minor-Communication wi th other healthcare providers and/or family 19 05:38
--- NOTE | 2019-03-28 13:58 | PN ---
THC Physician - Brief Progress [id number]/13/2019 16:52[facility] [place], [place] - ISIDORON (SHILOH) - DOUGLAS LUNAEN SusanneDate of Service 03/26/2019 16:52HPI/Events of Note Despite Novolog 10 units SQ x 2, his BG remains elevated. Will transition to an insulin gtt w hile NPO and continue to monitor closely. His BP is also rising. He responded to Labetalol 10 mg IVP in the ED. Will order a PRN dosing now. Case was discussed with his nurse Shira.Interventions Major-Hy perglycemia - active titration of insulin therapy, Hypertension - evaluation and managementIntermedia te-Communication with other healthcare providers and/or family, Medication change / dose adjustmentEl ectronically Signed by: ERICK AGUERO () on 03/26/2019 16:55
[2019-03-28] MEDS ORDERED: Insulin Glargine,Human Rec. Analog 100 Units/ML 3 ML Pen SUBCUT SCH (21:00)
== END 2019-03-28 12:22 | disposition home or self-care (01) | DRG 73 ==
LOC: MW.ED 09:13 → MW.ICU 11:30
PROVIDERS: ADMIT Internal Medicine; ATTEND Internal Medicine
DX: E10.43 Type 1 diabetes mellitus with diabetic autonomic (poly)neuropathy (principal); K29.71 Gastritis, unspecified, with bleeding; E10.22 Type 1 diabetes mellitus with diabetic chronic kidney disease; I12.9 Hypertensive chronic kidney disease with stage 1 through stage 4 chronic kidney disease, or unspecified chronic kidney disease; N18.9 Chronic kidney disease, unspecified; K31.84 Gastroparesis; H54.7 Unspecified visual loss; K21.9 Gastro-esophageal reflux disease without esophagitis; E10.40 Type 1 diabetes mellitus with diabetic neuropathy, unspecified; I10 Essential (primary) hypertension; E10.65 Type 1 diabetes mellitus with hyperglycemia; Z88.0 Allergy status to penicillin; Z91.013 Allergy to seafood; Z89.511 Acquired absence of right leg below knee; Z88.8 Allergy status to other drugs, medicaments and biological substances; Z91.018 Allergy to other foods; Z79.82 Long term (current) use of aspirin; Z79.4 Long term (current) use of insulin
CPT/HCPCS: 36415; 71045; 71045-26; 74018; 74018-26; 80048; 80053; 81001; 82009; 82272; 82962; 83605; 83690; 84484; 85014; 85018; 85025; 85027; 86850; 86900; 86901; 93005; 96361; 96374; 96375; 96376; 99285-25; A9270-GY; C9113; J0360; J1170; J1815-GY; J2270; J2405; J2550; J2765; J3490; J7040

== ENCOUNTER 2019-04-01 05:30 | Emergency (ER) | payer MEDICAID ==
[2019-04-01] MEDS ORDERED: Ondansetron 4 MG/2 ML SDV IVPUSH ONE (05:38)
[2019-04-01] MEDS ORDERED: Pantoprazole 40 MG Vial IVPUSH ONE (05:39)
[2019-04-01] MEDS ORDERED: Sodium Chloride 0.9% 20 ML ONE (05:44)
[2019-04-01] MEDS ORDERED: Sodium Chloride 0.9% 1,000 ML IV SCH ×2 (05:45→06:30)
[2019-04-01] MEDS ORDERED: hydrALAZINE 20 MG/ML SDV ONE (06:05)
[2019-04-01] MEDS ORDERED: hydrALAZINE 20 MG/ML SDV IVPUSH ONE (06:06)
--- NOTE | 2019-04-01 06:33 | EDM.PDOC ---
ED HPI GENERAL MEDICAL PROBLEM - General Chief Complaint: Gastrointestinal Problem Stated Complaint: VOMITING BLOOD Time Seen by Provider: 04/01/19 06:28 - History of Present Illness INITIAL COMMENTS - FREE TEXT/NARRATIVE: HISTORY AND PHYSICAL: History of present illness: Patient 33-year-old male with an extensive past medical history was seen numerous times in emergency department for variety of complaints including chronic intermittent abdominal pain hypertension diabetes medical noncompliance presents with abdominal pain vomiting and elevated blood pressure. Review of systems: As per history of present illness and below otherwise all systems reviewed and negative. Past medical history: As per history of present illness and as reviewed below otherwise noncontributory. Surgical history: As per history of present illness and as reviewed below otherwise noncontributory. Social history: No reported history of drug or alcohol abuse. Family history: As per history of present illness and as reviewed below otherwise noncontributory. Physical exam: HEENT: Atraumatic, normocephalic, pupils reactive, negative for conjunctival pallor or scleral icterus, mucous membranes moist, throat clear, neck supple, nontender, trachea midline. Lungs: Clear to auscultation, breath sounds equal bilaterally, chest nontender. Heart: S1S2, regular, negative for clicks, rubs, or JVD. Abdomen: Soft, nondistended, nontender. Negative for masses or hepatosplenomegaly. Negative for costovertebral tenderness. Pelvis: Stable nontender. Genitourinary: Deferred. Rectal: Deferred. Extremities: Right lower extremity amputation noted negative for cords or calf pain. Neurovascular unremarkable. Neuro: Awake, alert, oriented. Cranial nerves II through XII unremarkable. Cerebellum unremarkable. Motor and sensory unremarkable throughout. Exam nonfocal. Diagnostics: CBC CMP and lipase PT/INR troponin EKG chest x-ray CT abdomen and pelvis Therapeutics: IV O2 monitor Zofran 4 mg IV hydralazine 10 mg IV Protonix 80 mg IV Impression: #1 chronic abdominal pain #2 history diabetes #3 medical noncompliance #4 hypertension Definitive disposition and diagnosis as appropriate pending reevaluation and review of above. 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: IV/IO, Other (see below) Other Treatments CUSTOMER MARKETING MANAGER: Fentanyl 50mcg, Zofran 4mg abdomen Pain Score (Numeric/FACES): 6 - Related Data Allergies Allergy/AdvReac Type Severity Reaction Status Date / Time shrimp Allergy Severe Other Verified 04/01/19 05:53 iodine Allergy Unknown Anaphylactic Verified 04/01/19 05:53 Shock Penicillins Allergy Unknown Anaphylactic Verified 04/01/19 05:53 Shock shellfish derived Allergy Anaphylactic Verified 04/01/19 05:53 Shock gluten Allergy Unknown Muscle Uncoded 04/01/19 05:53 Aches Home Meds: Home Meds Omeprazole Magnesium [Prilosec Otc] 40 mg PO DAILY 07/15/17 [History] Doxazosin [Cardura] 2 mg PO BEDTIME 09/25/17 [History] Enalapril [Vasotec] 40 mg PO BEDTIME 09/25/17 [History] Torsemide 20 mg PO DAILY 09/25/17 [History] amLODIPine Besylate [Amlodipine Besylate] 10 mg PO BEDTIME 09/25/17 [History] Ferrous Sulfate 324 mg PO DAILY 01/20/18 [History] hydrALAZINE [Apresoline] 25 mg PO TID 30 Days #90 tablet 01/29/18 [Rx] Insulin Glarg,Human.Rec.Analog [Lantus Solostar] 50 units SUBCUT BEDTIME [History] Insulin Aspart [NovoLOG] 0 unit SUBCUT ASDIRECTED PRN 05/23/18 [History] Spironolactone [Aldactone] 25 mg PO DAILY 12/14/18 [History] hydroCHLOROthiazide [Hydrochlorothiazide] 25 mg PO DAILY 12/14/18 [History] Aspirin [Halfprin] 81 mg PO DAILY #30 tab.ec 12/15/18 [Rx] atorvaSTATin [Lipitor] 80 mg PO BEDTIME #60 tablet 12/15/18 [Rx] Metoclopramide [Reglan] 5 mg PO TIDAC #90 tab 03/11/19 [Rx] Pantoprazole Sodium [Protonix] 40 mg PO DAILY #30 tablet. 03/28/19 [Rx] Past Medical History - Past Health History Medical/Surgical History: Denies Medical/Surgical History HEENT History: Reports: Impaired Vision Other HEENT History: blind right eye Cardiovascular History: Reports: Hypertension Respiratory History: Reports: None Gastrointestinal History: Reports: Gastritis, GERD, Hiatal Hernia Other Gastrointestinal History: h/o gastric ulcers, h/o hiatal hernia Genitourinary History: Reports: Chronic Renal Insuffiency, Diabetic Nephropathy Musculoskeletal History: Reports: Amputation Neurological History: Reports: Neuropathy, Peripheral Psychiatric History: Reports: Anxiety Endocrine/Metabolic History: Reports: Diabetes, Type I Other Endocrine/Metabolic History: brittle diabetic. History of hyperkalemia and DKA Hematologic History: Reports: Anemia Immunologic History: Reports: None Oncologic (Cancer) History: Reports: None Dermatologic History: Reports: Other (See Below) Other Dermatologic History: diabetic foot ulcers - Infectious Disease History Infectious Disease History: Reports: Chicken Pox, MRSA Other Infectious Disease History: 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 Social & Family History - Family History Family Medical History: Noncontributory Cardiac: Reports: High Cholesterol, Hypertension OBGYN: Reports: Neurological: Reports: None - Caffeine Use Caffeine Use: Reports: Coffee, Energy Drinks, Soda, Tea - Living Situation & Occupation Living situation: Reports: Single Occupation: Employed (Currently unemployed.) ED ROS GENERAL - Review of Systems Review Of Systems: ROS reveals no pertinent complaints other than HPI. ED EXAM, GENERAL - Physical Exam Exam: See Below (See dictation) Course - Vital Signs Last Recorded V/S: Last Vital Signs Temp 37.1 C 04/01/19 07:27 Pulse 100 04/01/19 07:27 Resp 20 04/01/19 07:27 BP 174/105 H 04/01/19 07:27 Pulse Ox 97 04/01/19 07:27 - Orders/Labs/Meds Orders: Active Orders 24 hr Category Date Time Status EKG Documentation Completion [RC] STAT Care 04/01/19 05:36 Active Sodium Chloride 0.9% [Normal Saline] 1,000 ml Med 04/01/19 05:45 Active IV ASDIRECTED Sodium Chloride 0.9% [Normal Saline] 1,000 ml Med 04/01/19 06:30 Active IV ASDIRECTED Medication Orders Sodium Chloride (Normal Saline) 1,000 mls @ 999 mls/hr IV ASDIRECTED MICHAEL Last Admin: 04/01/19 05:45 Dose: 999 mls/hr Sodium Chloride (Normal Saline) 1,000 mls @ 125 mls/hr IV ASDIRECTED MICHAEL Last Admin: 04/01/19 06:32 Dose: 125 mls/hr Labs: Laboratory Tests 04/01/19 04/01/19 04/01/19 Range/Units 05:34 05:34 05:45 WBC 8.65 (4.0-11.0) K/uL RBC 5.06 (4.50-5.90) M/uL Hgb 10.5 L (13.0-17.0) g/dL Hct 33.6 L (38.0-50.0) % MCV 66.4 L (80.0-98.0) fL MCH 20.8 L (27.0-32.0) pg MCHC 31.3 (31.0-37.0) g/dL RDW Std Deviation 37.7 (28.0-62.0) fl RDW Coeff of Dania 16 H (11.0-15.0) % Plt Count 383 (150-400) K/uL MPV 10.20 (7.40-12.00) fL Neut % (Auto) 69.4 (48.0-80.0) % Lymph % (Auto) 24.0 (16.0-40.0) % [place] % (Auto) 4.6 (0.0-15.0) % Eos % (Auto) 1.4 (0.0-7.0) % Baso % (Auto) 0.6 (0.0-1.5) % Neut # (Auto) 6.0 H (1.4-5.7) K/uL Lymph # (Auto) 2.1 (0.6-2.4) K/uL [place] # (Auto) 0.4 (0.0-0.8) K/uL Eos # (Auto) 0.1 (0.0-0.7) K/uL Baso # (Auto) 0.1 (0.0-0.1) K/uL Nucleated RBC % 0.0 /100WBC Nucleated RBCs # 0 K/uL INR 0.95 ABG pH (7.35-7.45) ABG pCO2 (35-45) mmHG ABG pO2 (75-100) mmHG ABG HCO3 (22-26) mEq/L ABG Total CO2 ABG Base Excess (-2.0-2.0) Sodium (136-148) mmol/L Potassium (3.5-5.1) mmol/L Chloride (98-107) mmol/L Carbon Dioxide (21.0-32.0) mmol/L BUN (7.0-18.0) mg/dL Creatinine (0.8-1.3) mg/dL Est Cr Clr Drug Dosing mL/min Estimated GFR (MDRD) ml/min Glucose (74-106) mg/dL Calcium (8.5-10.1) mg/dL Total Bilirubin (0.2-1.0) mg/dL AST (15-37) IU/L ALT (14-63) IU/L Alkaline Phosphatase (46-116) U/L Troponin I < 0.050 (0.000-0.056) ng/mL Total Protein (6.4-8.2) g/dL Albumin (3.4-5.0) g/dL Globulin (2.6-4.0) g/dL Albumin/Globulin Ratio (0.9-1.6) Lipase (73-393) U/L Urine Color Urine Appearance Urine pH (5.0-8.0) Ur Specific [place] (1.001-1.035) Urine Protein (NEGATIVE) mg/dL Urine Glucose (UA) (NEGATIVE) mg/dL Urine Ketones (NEGATIVE) mg/dL Urine Occult Blood (NEGATIVE) Urine Nitrite (NEGATIVE) Urine Bilirubin (NEGATIVE) Urine Urobilinogen (<2.0) EU/dL Ur Leukocyte Esterase (NEGATIVE) Urine RBC (0-2/HPF) Urine WBC (0-5/HPF) Ur Epithelial Cells (NONE-FEW) Urine Bacteria (NEGATIVE) Urine Opiates Screen (NEGATIVE) Ur Oxycodone Screen (NEGATIVE) Urine Methadone Screen (NEGATIVE) Ur Barbiturates Screen (NEGATIVE) Ur Phencyclidine Scrn (NEGATIVE) Ur Amphetamine Screen (NEGATIVE) U Methamphetamines Scrn (NEGATIVE) U Benzodiazepines Scrn (NEGATIVE) U Cocaine Metab Screen (NEGATIVE) U Marijuana (THC) Screen (NEGATIVE) 04/01/19 04/01/19 04/01/19 Range/Units 05:45 06:00 06:37 WBC (4.0-11.0) K/uL RBC (4.50-5.90) M/uL Hgb (13.0-17.0) g/dL Hct (38.0-50.0) % MCV (80.0-98.0) fL MCH (27.0-32.0) pg MCHC (31.0-37.0) g/dL RDW Std Deviation (28.0-62.0) fl RDW Coeff of Dania (11.0-15.0) % Plt Count (150-400) K/uL MPV (7.40-12.00) fL Neut % (Auto) (48.0-80.0) % Lymph % (Auto) (16.0-40.0) % [place] % (Auto) (0.0-15.0) % Eos % (Auto) (0.0-7.0) % Baso % (Auto) (0.0-1.5) % Neut # (Auto) (1.4-5.7) K/uL Lymph # (Auto) (0.6-2.4) K/uL [place] # (Auto) (0.0-0.8) K/uL Eos # (Auto) (0.0-0.7) K/uL Baso # (Auto) (0.0-0.1) K/uL Nucleated RBC % /100WBC Nucleated RBCs # K/uL INR ABG pH 7.381 (7.35-7.45) ABG pCO2 38 (35-45) mmHG ABG pO2 76 (75-100) mmHG ABG HCO3 23 (22-26) mEq/L ABG Total CO2 21.2 ABG Base Excess -2.3 L (-2.0-2.0) Sodium 138 (136-148) mmol/L Potassium 3.6 (3.5-5.1) mmol/L Chloride 103 (98-107) mmol/L Carbon Dioxide 22.4 (21.0-32.0) mmol/L BUN 29 H (7.0-18.0) mg/dL Creatinine 2.4 H (0.8-1.3) mg/dL Est Cr Clr Drug Dosing 43.75 mL/min Estimated GFR (MDRD) 38.2 ml/min Glucose 420 H (74-106) mg/dL Calcium 9.0 (8.5-10.1) mg/dL Total Bilirubin 0.2 (0.2-1.0) mg/dL AST 21 (15-37) IU/L ALT 30 (14-63) IU/L Alkaline Phosphatase 141 H (46-116) U/L Troponin I (0.000-0.056) ng/mL Total Protein 7.0 (6.4-8.2) g/dL Albumin 3.0 L (3.4-5.0) g/dL Globulin 4.0 (2.6-4.0) g/dL Albumin/Globulin Ratio 0.8 L (0.9-1.6) Lipase 44 L (73-393) U/L Urine Color YELLOW Urine Appearance CLEAR Urine pH 7.0 (5.0-8.0) Ur Specific [place] 1.020 (1.001-1.035) Urine Protein >=300 H (NEGATIVE) mg/dL Urine Glucose (UA) >=1000 (NEGATIVE) mg/dL Urine Ketones NEGATIVE (NEGATIVE) mg/dL Urine Occult Blood SMALL H (NEGATIVE) Urine Nitrite NEGATIVE (NEGATIVE) Urine Bilirubin NEGATIVE (NEGATIVE) Urine Urobilinogen 0.2 (<2.0) EU/dL Ur Leukocyte Esterase NEGATIVE (NEGATIVE) Urine RBC 1-3 (0-2/HPF) Urine WBC 0-2 (0-5/HPF) Ur Epithelial Cells RARE (NONE-FEW) Urine Bacteria RARE (NEGATIVE) Urine Opiates Screen (NEGATIVE) Ur Oxycodone Screen (NEGATIVE) Urine Methadone Screen (NEGATIVE) Ur Barbiturates Screen (NEGATIVE) Ur Phencyclidine Scrn (NEGATIVE) Ur Amphetamine Screen (NEGATIVE) U Methamphetamines Scrn (NEGATIVE) U Benzodiazepines Scrn (NEGATIVE) U Cocaine Metab Screen (NEGATIVE) U Marijuana (THC) Screen (NEGATIVE) 04/01/19 Range/Units 06:37 WBC (4.0-11.0) K/uL RBC (4.50-5.90) M/uL Hgb (13.0-17.0) g/dL Hct (38.0-50.0) % MCV (80.0-98.0) fL MCH (27.0-32.0) pg MCHC (31.0-37.0) g/dL RDW Std Deviation (28.0-62.0) fl RDW Coeff of Dania (11.0-15.0) % Plt Count (150-400) K/uL MPV (7.40-12.00) fL Neut % (Auto) (48.0-80.0) % Lymph % (Auto) (16.0-40.0) % [place] % (Auto) (0.0-15.0) % Eos % (Auto) (0.0-7.0) % Baso % (Auto) (0.0-1.5) % Neut # (Auto) (1.4-5.7) K/uL Lymph # (Auto) (0.6-2.4) K/uL [place] # (Auto) (0.0-0.8) K/uL Eos # (Auto) (0.0-0.7) K/uL Baso # (Auto) (0.0-0.1) K/uL Nucleated RBC % /100WBC Nucleated RBCs # K/uL INR ABG pH (7.35-7.45) ABG pCO2 (35-45) mmHG ABG pO2 (75-100) mmHG ABG HCO3 (22-26) mEq/L ABG Total CO2 ABG Base Excess (-2.0-2.0) Sodium (136-148) mmol/L Potassium (3.5-5.1) mmol/L Chloride (98-107) mmol/L Carbon Dioxide (21.0-32.0) mmol/L BUN (7.0-18.0) mg/dL Creatinine (0.8-1.3) mg/dL Est Cr Clr Drug Dosing mL/min Estimated GFR (MDRD) ml/min Glucose (74-106) mg/dL Calcium (8.5-10.1) mg/dL Total Bilirubin (0.2-1.0) mg/dL AST (15-37) IU/L ALT (14-63) IU/L Alkaline Phosphatase (46-116) U/L Troponin I (0.000-0.056) ng/mL Total Protein (6.4-8.2) g/dL Albumin (3.4-5.0) g/dL Globulin (2.6-4.0) g/dL Albumin/Globulin Ratio (0.9-1.6) Lipase (73-393) U/L Urine Color Urine Appearance Urine pH (5.0-8.0) Ur Specific [place] (1.001-1.035) Urine Protein (NEGATIVE) mg/dL Urine Glucose (UA) (NEGATIVE) mg/dL Urine Ketones (NEGATIVE) mg/dL Urine Occult Blood (NEGATIVE) Urine Nitrite (NEGATIVE) Urine Bilirubin (NEGATIVE) Urine Urobilinogen (<2.0) EU/dL Ur Leukocyte Esterase (NEGATIVE) Urine RBC (0-2/HPF) Urine WBC (0-5/HPF) Ur Epithelial Cells (NONE-FEW) Urine Bacteria (NEGATIVE) Urine Opiates Screen NEGATIVE (NEGATIVE) Ur Oxycodone Screen NEGATIVE (NEGATIVE) Urine Methadone Screen NEGATIVE (NEGATIVE) Ur Barbiturates Screen NEGATIVE (NEGATIVE) Ur Phencyclidine Scrn NEGATIVE (NEGATIVE) Ur Amphetamine Screen NEGATIVE (NEGATIVE) U Methamphetamines Scrn NEGATIVE (NEGATIVE) U Benzodiazepines Scrn NEGATIVE (NEGATIVE) U Cocaine Metab Screen POSITIVE (NEGATIVE) U Marijuana (THC) Screen POSITIVE (NEGATIVE) Meds: Medications Generic Name Dose Route Start Last Admin Trade Name Freq PRN Reason Stop Dose Admin Sodium Chloride 1,000 mls @ 999 mls/hr 04/01/19 05:45 04/01/19 05:45 Normal Saline IV 999 mls/hr ASDIRECTED MICHAEL Administration Sodium Chloride 1,000 mls @ 125 mls/hr 04/01/19 06:30 04/01/19 06:32 Normal Saline IV 125 mls/hr ASDIRECTED MICHAEL Administration Discontinued Medications Generic Name Dose Route Start Last Admin Trade Name Freq PRN Reason Stop Dose Admin Hydralazine HCl 10 mg 04/01/19 06:06 04/01/19 06:07 Apresoline IVPUSH 04/01/19 06:07 10 mg ONETIME ONE Administration Hydralazine HCl Confirm 04/01/19 06:05 04/01/19 06:28 Apresoline Administered 04/01/19 06:06 Not Given Dose 20 mg .ROUTE .STK-MED ONE Sodium Chloride Confirm 04/01/19 05:44 04/01/19 05:52 Normal Saline Administered 04/01/19 05:45 20 mls/hr Dose Administration 20 mls @ as directed .ROUTE .STK-MED ONE Ondansetron HCl 4 mg 04/01/19 05:38 04/01/19 05:51 Zofran IVPUSH 04/01/19 05:39 4 mg ONETIME ONE Administration Pantoprazole Sodium 80 mg 04/01/19 05:39 04/01/19 05:45 Protonix Iv IVPUSH 04/01/19 05:40 80 mg BOLUS ONE Administration Departure - Departure Time of Disposition: 06:33 Disposition: Home, Self-Care 01 Condition: Good Clinical Impression: Encounter for medical screening examination, Medical non-compliance, Substance abuse, Chronic abdominal pain Diabetes Qualifiers: Diabetes mellitus type: type 1 Diabetes mellitus complication status: with kidney complications Diabetes mellitus complication detail: with chronic kidney disease Hypertension Qualifiers: Hypertension type: essential hypertension Qualified Code(s): I10 - Essential ( primary) hypertension - Discharge Information Referrals: PCP,None [Primary Care Provider] - Forms: ED Department Discharge Additional Instructions: The following information is given to patients seen in the emergency department who are being discharged to home. This information is to outline your options for follow-up care. We provide all patients seen in our emergency department with a follow-up referral. The need for follow-up, as well as the timing and circumstances, are variable depending upon the specifics of your emergency department visit. If you don't have a primary care physician on staff, we will provide you with a referral. We always advise you to contact your personal physician following an emergency department visit to inform them of the circumstance of the visit and for follow-up with them and/or the need for any referrals to a consulting specialist. The emergency department will also refer you to a specialist when appropriate. This referral assures that you have the opportunity for followup care with a specialist. All of these measure are taken in an effort to provide you with optimal care, which includes your followup. Under all circumstances we always encourage you to contact your private physician who remains a resource for coordinating your care. When calling for followup care, please make the office aware that this follow-up is from your recent emergency room visit. If for any reason you are refused follow-up, please contact the [facility] emergency department at and asked to speak to the emergency department charge nurse. Follow-up primary medical doctor and general surgery referral as scheduled prior stop using drugs continue current medications return as needed as discussed - My Orders Last 24 Hours: My Active Orders 04/01/19 05:36 EKG Documentation Completion [RC] STAT 04/01/19 05:45 Sodium Chloride 0.9% [Normal Saline] 1,000 ml IV ASDIRECTED 04/01/19 06:30 Sodium Chloride 0.9% [Normal Saline] 1,000 ml IV ASDIRECTED - Assessment/Plan Last 24 Hours: My Active Orders 04/01/19 05:36 EKG Documentation Completion [RC] STAT 04/01/19 05:45 Sodium Chloride 0.9% [Normal Saline] 1,000 ml IV ASDIRECTED 04/01/19 06:30 Sodium Chloride 0.9% [Normal Saline] 1,000 ml IV ASDIRECTED
--- NOTE | 2019-04-01 06:42 | CR ---
HISTORY: Chest and abdominal pain. COMPARISON: 03/26/2018. FINDINGS: AP views of the chest. The lungs are clear. Costophrenic angles sharp. Heart size and pulmonary vascularity are within normal limits. The thorax appears intact. Dictated by Ivis Cervantes MD @ Apr 01 2019 6:40AM Signed by Dr. Ivis Cervantes @ Apr 01 2019 6:41AM
--- NOTE | 2019-04-01 06:49 | CT ---
HISTORY: Chest and abdominal pain. COMPARISON: 02/07/2019. TECHNIQUE: Noncontrast axial images were obtained through the abdomen and pelvis. FINDINGS: The lung bases are clear. The liver, spleen, pancreas, gallbladder, adrenal glands and kidneys are within normal. The bowel is normal in caliber. No evidence for bowel obstruction. No lymphadenopathy or ascites. Small umbilical hernia containing fat. The bladder is very full. The bones are within normal. Impression: No acute abnormality to explain the patient`s symptoms. Please note that all CT scans at this facility use dose modulation, iterative reconstruction, and/or weight-based dosing when appropriate to reduce radiation dose to as low as reasonably achievable. Dictated by Ivis Cervantes MD @ Apr 01 2019 6:40AM Signed by Dr. Ivis Cervantes @ Apr 01 2019 6:47AM
[2019-04-01 07:28] VITALS: BP 174/105
== END 2019-04-01 08:03 | disposition home or self-care (01) ==
LOC: MW.ED 05:30
DX: I12.9 Hypertensive chronic kidney disease with stage 1 through stage 4 chronic kidney disease, or unspecified chronic kidney disease (principal); N18.9 Chronic kidney disease, unspecified; E10.22 Type 1 diabetes mellitus with diabetic chronic kidney disease; R10.9 Unspecified abdominal pain; F19.10 Other psychoactive substance abuse, uncomplicated; E10.21 Type 1 diabetes mellitus with diabetic nephropathy; Z91.14 Patient's other noncompliance with medication regimen; D64.9 Anemia, unspecified; K21.9 Gastro-esophageal reflux disease without esophagitis; Z79.4 Long term (current) use of insulin; Z79.82 Long term (current) use of aspirin; Z91.013 Allergy to seafood; Z88.0 Allergy status to penicillin; Z88.8 Allergy status to other drugs, medicaments and biological substances
CPT/HCPCS: 36415; 36600; 71045; 74176; 80053; 80305; 81001; 82803; 83690; 84484; 85025; 85610; 93005; 96361; 96374; 96375; 99285; C9113; J0360; J2405; J7040

== ENCOUNTER 2019-04-01 10:24 | Emergency (ER) | payer MEDICAID ==
--- NOTE | 2019-04-01 10:34 | EDM.PDOC ---
ED HPI GENERAL MEDICAL PROBLEM - General Stated Complaint: VOMITING BLOOD Time Seen by Provider: 04/01/19 10:32 Source of Information: Reports: Patient History Limitations: Reports: No Limitations - History of Present Illness INITIAL COMMENTS - FREE TEXT/NARRATIVE: HISTORY AND PHYSICAL: History of present illness: Patient is a 33-year-old male who presents to the emergency room with complaints of nausea and vomiting. Patient was seen in the ER just a few hours prior to assess his current complaints. He did have a full workup including labs , IV fluids and medication. He was discharged to home. He was placed into custody of law enforcement due to a warrant. He was just released from [facility] and has now returned to the emergency room. He states that he continues to have nausea and vomiting regardless of being seen earlier. States that he has not been able to eat any food and therefore has not been taking any of his medication or his insulin as prescribed. Patient denies any fever, chills, headache, change in vision, syncope or near syncope. Denies any chest pain, back pain, shortness of breath or cough. Denies any abdominal pain, diarrhea, constipation or dysuria. Does have a long- standing history of chronic abdominal pain, intermittent nausea and vomiting with blood, uncontrolled diabetes, uncontrolled hypertension and medication noncompliance. Review of systems: As per history of present illness and below otherwise all systems reviewed and negative. Past medical history: As per history of present illness and as reviewed below otherwise noncontributory. Surgical history: As per history of present illness and as reviewed below otherwise noncontributory. Social history: See social history for further information Family history: As per history of present illness and as reviewed below otherwise noncontributory. Physical exam: General: Well developed and well nourished 33-year-old -[place] male. Alert and appropriate for age. Nontoxic appearing and in no acute distress. HEENT: Atraumatic, normocephalic, pupils equal and reactive bilaterally, negative for conjunctival pallor or scleral icterus, mucous membranes moist, trachea midline. No drooling or trismus noted. No meningeal signs. No hot potato voice noted. Lungs: Clear to auscultation, breath sounds equal bilaterally, chest nontender. Heart: S1S2, regular rate and rhythm without overt murmur Abdomen: Soft, nondistended, nontender. Negative for masses or hepatosplenomegaly. Negative for costovertebral tenderness. Pelvis is stable nontender. Skin: Intact, warm, dry. No lesions or rashes noted. Extremities: Atraumatic, moves all extremities per self without difficulty or deficits, below the knee amputation with prosthetic. Neurovascular unremarkable. Neuro: Awake, alert, oriented. Cranial nerves II through XII unremarkable. Cerebellum unremarkable. Motor and sensory unremarkable throughout. Exam nonfocal. Notes: Upon patient arrival he states that the Reglan and Zofran do not work. He is adamant about receiving Phenergan. Patient's CBC has no change since this morning. Patient chronically has hypertension which he states he has not been taking his medications. He has been disruptive and pacing in the hallway, demanding "more medication". He did receive Phenergan IM while here. No vomiting noted while in the emergency room. Dr Fernandes was involved in this case. Supportive care measures were reviewed and discussed. Voices understanding and is agreeable to plan of care. Denies any further questions or concerns at this time. Diagnostics: CBC Therapeutics: Phenergan IM Prescription: None Impression: Nausea and vomiting Medication noncompliance History of uncontrolled diabetes History of uncontrolled hypertension Plan: 1. Take your home medications as directed. 2. Follow-up with the general surgeon and your primary care provider as we discussed. 3. Return to the ED as needed and as discussed. Definitive disposition and diagnosis as appropriate pending reevaluation and review of above. Duration: Chronic Abdominal Pain Score (Numeric/FACES): 10 - Related Data Allergies Allergy/AdvReac Type Severity Reaction Status Date / Time shrimp Allergy Severe Other Verified 04/01/19 10:35 iodine Allergy Unknown Anaphylactic Verified 04/01/19 10:35 Shock Penicillins Allergy Unknown Anaphylactic Verified 04/01/19 10:35 Shock shellfish derived Allergy Anaphylactic Verified 04/01/19 10:35 Shock gluten Allergy Unknown Muscle Uncoded 04/01/19 10:35 Aches Home Meds: Home Meds Omeprazole Magnesium [Prilosec Otc] 40 mg PO DAILY 07/15/17 [History] Doxazosin [Cardura] 2 mg PO BEDTIME 09/25/17 [History] Enalapril [Vasotec] 40 mg PO BEDTIME 09/25/17 [History] Torsemide 20 mg PO DAILY 09/25/17 [History] amLODIPine Besylate [Amlodipine Besylate] 10 mg PO BEDTIME 09/25/17 [History] Ferrous Sulfate 324 mg PO DAILY 01/20/18 [History] hydrALAZINE [Apresoline] 25 mg PO TID 30 Days #90 tablet 01/29/18 [Rx] Insulin Glarg,Human.Rec.Analog [Lantus Solostar] 50 units SUBCUT BEDTIME [History] Insulin Aspart [NovoLOG] 0 unit SUBCUT ASDIRECTED PRN 05/23/18 [History] Spironolactone [Aldactone] 25 mg PO DAILY 12/14/18 [History] hydroCHLOROthiazide [Hydrochlorothiazide] 25 mg PO DAILY 12/14/18 [History] Aspirin [Halfprin] 81 mg PO DAILY #30 tab.ec 12/15/18 [Rx] atorvaSTATin [Lipitor] 80 mg PO BEDTIME #60 tablet 12/15/18 [Rx] Metoclopramide [Reglan] 5 mg PO TIDAC #90 tab 03/11/19 [Rx] Pantoprazole Sodium [Protonix] 40 mg PO DAILY #30 tablet.dr 03/28/19 [Rx] Past Medical History - Past Health History Medical/Surgical History: Denies Medical/Surgical History HEENT History: Reports: Impaired Vision Other HEENT History: blind right eye Cardiovascular History: Reports: Hypertension Respiratory History: Reports: None Gastrointestinal History: Reports: Gastritis, GERD, Hiatal Hernia Other Gastrointestinal History: h/o gastric ulcers, h/o hiatal hernia Genitourinary History: Reports: Chronic Renal Insuffiency, Diabetic Nephropathy Musculoskeletal History: Reports: Amputation Neurological History: Reports: Neuropathy, Peripheral Other Neuro History: stroke 3 months ago Psychiatric History: Reports: Anxiety Endocrine/Metabolic History: Reports: Diabetes, Type I Other Endocrine/Metabolic History: brittle diabetic. History of hyperkalemia and DKA Hematologic History: Reports: Anemia Immunologic History: Reports: None Oncologic (Cancer) History: Reports: None Dermatologic History: Reports: Other (See Below) Other Dermatologic History: diabetic foot ulcers - Infectious Disease History Infectious Disease History: Reports: Chicken Pox, MRSA Other Infectious Disease History: 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 Social & Family History - Family History Family Medical History: Noncontributory Cardiac: Reports: High Cholesterol, Hypertension OBGYN: Reports: Neurological: Reports: None - Caffeine Use Caffeine Use: Reports: Coffee, Energy Drinks, Soda, Tea - Living Situation & Occupation Living situation: Reports: Single Occupation: Employed (Currently unemployed.) ED ROS GENERAL - Review of Systems Review Of Systems: ROS reveals no pertinent complaints other than HPI. ED EXAM, GI/ABD - Physical Exam Exam: See Below (See dictation) Course - Vital Signs Last Recorded V/S: Last Vital Signs Temp 95.9 F 04/01/19 10:36 Pulse 106 H 04/01/19 10:36 Resp 24 H 04/01/19 10:36 BP 204/119 H 04/01/19 10:36 Pulse Ox 96 04/01/19 10:36 - Orders/Labs/Meds Labs: Laboratory Tests 04/01/19 Range/Units 10:44 WBC 8.65 (4.0-11.0) K/uL RBC 5.13 (4.50-5.90) M/uL Hgb 10.8 L (13.0-17.0) g/dL Hct 33.5 L (38.0-50.0) % MCV 65.3 L (80.0-98.0) fL MCH 21.1 L (27.0-32.0) pg MCHC 32.2 (31.0-37.0) g/dL RDW Std Deviation 37.1 (28.0-62.0) fl RDW Coeff of Dania 16 H (11.0-15.0) % Plt Count 380 (150-400) K/uL MPV 10.30 (7.40-12.00) fL Neut % (Auto) 76.1 (48.0-80.0) % Lymph % (Auto) 20.7 (16.0-40.0) % [place] % (Auto) 3.0 (0.0-15.0) % Eos % (Auto) 0.0 (0.0-7.0) % Baso % (Auto) 0.2 (0.0-1.5) % Neut # (Auto) 6.6 H (1.4-5.7) K/uL Lymph # (Auto) 1.8 (0.6-2.4) K/uL [place] # (Auto) 0.3 (0.0-0.8) K/uL Eos # (Auto) 0.0 (0.0-0.7) K/uL Baso # (Auto) 0.0 (0.0-0.1) K/uL Nucleated RBC % 0.0 /100WBC Nucleated RBCs # 0 K/uL Meds: Medications Discontinued Medications Generic Name Dose Route Start Last Admin Trade Name Freq PRN Reason Stop Dose Admin Ondansetron HCl 8 mg 04/01/19 10:38 Zofran Odt PO ONETIME PRN Nausea/Vomiting Promethazine HCl 25 mg 04/01/19 10:40 04/01/19 10:54 Phenergan IM 04/01/19 10:41 25 mg ONETIME ONE Administration Departure - Departure Time of Disposition: 10:57 Disposition: Home, Self-Care 01 Clinical Impression: Medical non-compliance, Uncontrolled hypertension, History of uncontrolled diabetes Nausea and vomiting Qualifiers: Vomiting type: unspecified Vomiting Intractability: non-intractable Qualified Code(s): R11.2 - Nausea with vomiting, unspecified - Discharge Information Instructions: Hypertension, [id number], Medical Screening Exam Referrals: PCP,Unknown [Primary Care Provider] - Forms: ED Department Discharge Additional Instructions: The following information is given to patients seen in the emergency department who are being discharged to home. This information is to outline your options for follow-up care. We provide all patients seen in our emergency department with a follow-up referral. The need for follow-up, as well as the timing and circumstances, are variable depending upon the specifics of your emergency department visit. If you don't have a primary care physician on staff, we will provide you with a referral. We always advise you to contact your personal physician following an emergency department visit to inform them of the circumstance of the visit and for follow-up with them and/or the need for any referrals to a consulting specialist. The emergency department will also refer you to a specialist when appropriate. This referral assures that you have the opportunity for follow-up care with a specialist. All of these measure are taken in an effort to provide you with optimal care, which includes your follow-up. Under all circumstances we always encourage you to contact your private physician who remains a resource for coordinating your care. When calling for follow-up care, please make the office aware that this follow-up is from your recent emergency room visit. If for any reason you are refused follow-up, please contact the [facility] at and asked to speak to the emergency department charge nurse. [facility] [address] [place] [id number] [id number] 1. Take your home medications as directed. 2. Follow-up with the general surgeon and your primary care provider as we discussed. 3. Return to the ED as needed and as discussed.
[2019-04-01] MEDS ORDERED: Ondansetron 4 MG Tab.DIS PO PRN (10:38)
[2019-04-01] MEDS ORDERED: Promethazine 25 MG/ML SDV IM ONE (10:40)
[2019-04-01 11:50] VITALS: BP 179/121
== END 2019-04-01 11:51 | disposition home or self-care (01) ==
LOC: MW.ED 10:24
DX: R11.2 Nausea with vomiting, unspecified (principal); I12.9 Hypertensive chronic kidney disease with stage 1 through stage 4 chronic kidney disease, or unspecified chronic kidney disease; N18.9 Chronic kidney disease, unspecified; E10.22 Type 1 diabetes mellitus with diabetic chronic kidney disease; E10.21 Type 1 diabetes mellitus with diabetic nephropathy; Z91.14 Patient's other noncompliance with medication regimen; K21.9 Gastro-esophageal reflux disease without esophagitis; Z91.013 Allergy to seafood; Z88.1 Allergy status to other antibiotic agents; Z91.048 Other nonmedicinal substance allergy status; Z91.018 Allergy to other foods; Z79.899 Other long term (current) drug therapy; Z79.4 Long term (current) use of insulin; Z79.82 Long term (current) use of aspirin
CPT/HCPCS: 36415; 85025; 96372; 99284; J2550

== ENCOUNTER 2019-04-15 15:16 | Emergency (ER) | payer MEDICAID ==
[2019-04-15] MEDS ORDERED: Sodium Chloride 0.9% 1,000 ML IV ONE (15:23)
[2019-04-15] MEDS ORDERED: Ondansetron 4 MG/2 ML SDV IVPUSH ONE (15:23)
[2019-04-15] MEDS ORDERED: Metoclopramide 10 MG/2 ML SDV IV ONE (15:42)
[2019-04-15] MEDS ORDERED: diphenhydrAMINE 50 MG/ML SDV IVPUSH ONE (15:42)
[2019-04-15] MEDS ORDERED: HYDROmorphone 1 MG/ML Syringe IVPUSH ONE (15:42)
[2019-04-15] MEDS ORDERED: Pantoprazole 40 MG Vial IVPUSH ONE (15:42)
--- NOTE | 2019-04-15 15:49 | EDM.PDOC ---
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 His last admission here was from April 01 to April 05 for vomiting inability to tolerate anything by mouth and immature emesis. He was evaluated and treated appropriately with full lab evaluations and he had surgical consultation with Dr. Sanz who performed an EGD on April 04. Intraoperative note the findings revealed linear erosive esophagitis mild chronic gastritis and a proximal vascular injury ON ectatic lesion. There was no active bleeding. The patient was managed conservatively and he was discharged home. It is unclear if he follows up regularly for these issues. He was at the infusion center today receiving an iron transfusion for his anemia and he reported to them and demonstrated that he was vomiting and he was sent here for evaluation in the ED. The patient tells me that yesterday he had a normal day and yesterday evening had an episode of vomiting which was mostly yellowish and clear in color. He went to sleep and then woke up early this morning with repeated vomiting which became dark brown and coffee grounds in color. The patient had one episode of loose stool last evening which he didn't realize what the color was and he didn't look at it. He's had no bowel movement today. He complains of diffuse abdominal pain mostly in the upper area and is writhing about and yelling on my initial conversation with him. He is not having any chest pain or shortness of breath no fevers or chills and no urinary issues. He says that when the waves of nausea and pain, he can handle it very well. He does have Reglan at home which his oral pills and he was not able to tolerate the pills area Please note that our nursing supervisor plate forming started this patient's IV and infusion therapy for his iron infusion and says that when she went down there he was interactive laughing and had no complaints of abdominal pain or vomiting. This is in contrary to what he has told me with his presentation that he has been vomiting all day today including before he went to the infusion center and while he was in the infusion center. Director Of [employer] says that that is not the clinical picture that she witnessed. Review of systems: As per history of present illness and below otherwise all systems reviewed and negative. Past medical history: As per history of present illness and as reviewed below otherwise noncontributory. Surgical history: As per history of present illness and as reviewed below otherwise noncontributory. Social history: No reported history of drug or alcohol abuse. Family history: As per history of present illness and as reviewed below otherwise noncontributory. Physical exam: General: Well-developed well-nourished thin man who is able to be redirected but is very exaggerated on exam and is vomiting coffee-ground emesis on my evaluation. Vital signs are noted by me HEENT: Atraumatic, normocephalic, pupils reactive, negative for conjunctival pallor or scleral icterus, mucous membranes moist, throat clear, neck supple, nontender, trachea midline. Lungs: Clear to auscultation, breath sounds equal bilaterally, chest nontender. No worker breathing Heart: S1S2, regular rhythm and tachycardic rate on my evaluation, negative for clicks, rubs, or JVD. Abdomen: Soft, nondistended, bowel sounds are slightly hypoactive and there is diffuse upper abdominal tenderness without localization and no rebound or guarding when I distract the patient. Negative for masses or hepatosplenomegaly. Negative for costovertebral tenderness. Pelvis: Stable nontender. Genitourinary: Deferred. Rectal: Deferred. Extremities: Atraumatic, negative for cords or calf pain. Neurovascular unremarkable. Neuro: Awake, alert, oriented. Cranial nerves II through XII unremarkable. Cerebellum unremarkable. Motor and sensory unremarkable throughout. Exam nonfocal. Diagnostics: CBC CMP lipase INR abdominal x-rays with chest XR serum ketones Accu-Chek Therapeutics: IV fluids Zofran Protonix Reglan Benadryl Dilaudid, insulin subcutaneous Patient is much improved and his vitals have normalized. He is no longer vomiting or having pain and I discussed with him the testing results. We will do a repeat Accu-Chek before his departure. He follows with Dr. Infante in his clinic and advised him to touch base with him on Thursday to talk about today's events. He has medication at home that he can utilize for his vomiting. He says that he has the Reglan as well as the Carafate and Protonix which I told him to continue utilizing. Impression: Vomiting and abdominal pain, exacerbation of gastroparesis with hematemesis improved Definitive disposition and diagnosis as appropriate pending reevaluation and review of above. Upper Abdomen Pain Score (Numeric/FACES): 9 - Related Data Allergies Allergy/AdvReac Type Severity Reaction Status Date / Time shrimp Allergy Severe Other Verified 04/15/19 15:26 iodine Allergy Unknown Anaphylactic Verified 04/15/19 15:26 Shock Penicillins Allergy Unknown Anaphylactic Verified 04/15/19 15:26 Shock shellfish derived Allergy Anaphylactic Verified 04/15/19 15:26 Shock gluten Allergy Unknown Muscle Uncoded 04/15/19 15:26 Aches Home Meds: Home Meds Doxazosin [Cardura] 2 mg PO BEDTIME 09/25/17 [History] Enalapril [Vasotec] 40 mg PO BEDTIME 09/25/17 [History] Torsemide 20 mg PO DAILY 09/25/17 [History] amLODIPine Besylate [Amlodipine Besylate] 10 mg PO BEDTIME 09/25/17 [History] Ferrous Sulfate 324 mg PO DAILY 01/20/18 [History] hydrALAZINE [Apresoline] 25 mg PO TID 30 Days #90 tablet 01/29/18 [Rx] Insulin Glarg,Human.Rec.Analog [Lantus Solostar] 35 units SUBCUT BEDTIME [History] Insulin Aspart [NovoLOG] 0 unit SUBCUT ASDIRECTED PRN 05/23/18 [History] Spironolactone [Aldactone] 25 mg PO DAILY 12/14/18 [History] hydroCHLOROthiazide [Hydrochlorothiazide] 25 mg PO DAILY 12/14/18 [History] Aspirin [Halfprin] 81 mg PO DAILY #30 tab.ec 12/15/18 [Rx] atorvaSTATin [Lipitor] 80 mg PO BEDTIME #60 tablet 12/15/18 [Rx] Metoclopramide [Reglan] 5 mg PO TIDAC #90 tab 03/11/19 [Rx] Iron Sucrose Complex [Venofer] 200 mg IV Q2D #4 bag 04/05/19 [Rx] Pantoprazole Sodium [Protonix] 40 mg PO BID #60 tablet. 04/05/19 [Rx] Sucralfate [Carafate] 1 gm PO QIDACANDBED #120 ml 04/05/19 [Rx] Past Medical History - Past Health History Medical/Surgical History: Denies Medical/Surgical History HEENT History: Reports: Impaired Vision Other HEENT History: blind right eye Cardiovascular History: Reports: Hypertension Respiratory History: Reports: None Gastrointestinal History: Reports: Gastritis, GERD, Hiatal Hernia Other Gastrointestinal History: h/o gastric ulcers, h/o hiatal hernia Genitourinary History: Reports: Chronic Renal Insuffiency, Diabetic Nephropathy Musculoskeletal History: Reports: Amputation Neurological History: Reports: Neuropathy, Peripheral Other Neuro History: stroke 3 months ago Psychiatric History: Reports: Anxiety Endocrine/Metabolic History: Reports: Diabetes, Type I Other Endocrine/Metabolic History: brittle diabetic. History of hyperkalemia and DKA Hematologic History: Reports: Anemia Immunologic History: Reports: None Oncologic (Cancer) History: Reports: None Dermatologic History: Reports: Other (See Below) Other Dermatologic History: diabetic foot ulcers - Infectious Disease History Infectious Disease History: Reports: Chicken Pox, MRSA Other Infectious Disease History: 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 - Past Surgical History Head Surgeries/Procedures: Reports: None Social & Family History - Family History Family Medical History: Noncontributory Cardiac: Reports: High Cholesterol, Hypertension OBGYN: Reports: Neurological: Reports: None - Tobacco Use Smoking Status *Q: Never Smoker - Caffeine Use Caffeine Use: Reports: Coffee, Energy Drinks, Soda, Tea Other Caffeine Use: daily - Recreational Drug Use Recreational Drug Use: No - Living Situation & Occupation Living situation: Reports: Single Occupation: Employed (Currently unemployed.) ED ROS GENERAL - Review of Systems Review Of Systems: ROS reveals no pertinent complaints other than HPI. ED EXAM, GENERAL - Physical Exam Exam: See Below (See dictation) Course - Vital Signs Last Recorded V/S: Last Vital Signs Temp Pulse 92 04/15/19 16:54 Resp 12 04/15/19 16:54 BP 167/89 H 04/15/19 16:54 Pulse Ox 96 04/15/19 16:54 - Orders/Labs/Meds Orders: Active Orders 24 hr Category Date Time Status Blood Glucose Check, Bedside [RC] ONETIME Care 04/15/19 15:45 Active Labs: Laboratory Tests 04/15/19 04/15/19 04/15/19 Range/Units 15:35 15:35 15:35 WBC 13.88 H (4.0-11.0) K/uL RBC 5.13 (4.50-5.90) M/uL Hgb 11.6 L (13.0-17.0) g/dL Hct 35.2 L (38.0-50.0) % MCV 68.6 L (80.0-98.0) fL MCH 22.6 L (27.0-32.0) pg MCHC 33.0 (31.0-37.0) g/dL RDW Std Deviation 44.7 (28.0-62.0) fl RDW Coeff of Dania 18 H (11.0-15.0) % Plt Count 318 (150-400) K/uL MPV 10.70 (7.40-12.00) fL Neut % (Auto) 80.1 H (48.0-80.0) % Lymph % (Auto) 13.9 L (16.0-40.0) % [place] % (Auto) 5.2 (0.0-15.0) % Eos % (Auto) 0.4 (0.0-7.0) % Baso % (Auto) 0.4 (0.0-1.5) % Neut # (Auto) 11.1 H (1.4-5.7) K/uL Lymph # (Auto) 1.9 (0.6-2.4) K/uL [place] # (Auto) 0.7 (0.0-0.8) K/uL Eos # (Auto) 0.1 (0.0-0.7) K/uL Baso # (Auto) 0.1 (0.0-0.1) K/uL Nucleated RBC % 0.0 /100WBC Nucleated RBCs # 0 K/uL INR 0.96 Sodium 137 (136-148) mmol/L Potassium 4.2 (3.5-5.1) mmol/L Chloride 103 (98-107) mmol/L Carbon Dioxide 21.6 (21.0-32.0) mmol/L BUN 53 H (7.0-18.0) mg/dL Creatinine 2.2 H (0.8-1.3) mg/dL Est Cr Clr Drug Dosing 48.20 mL/min Estimated GFR (MDRD) 34.9 ml/min Glucose 385 H (74-106) mg/dL POC Glucose (60-110) mg/dL Calcium 9.1 (8.5-10.1) mg/dL Total Bilirubin 0.2 (0.2-1.0) mg/dL AST 14 L (15-37) IU/L ALT 28 (14-63) IU/L Alkaline Phosphatase 113 (46-116) U/L Total Protein 6.6 (6.4-8.2) g/dL Albumin 2.7 L (3.4-5.0) g/dL Globulin 3.9 (2.6-4.0) g/dL Albumin/Globulin Ratio 0.7 L (0.9-1.6) Lipase 21 L (73-393) U/L Ketones (NEG) 04/15/19 04/15/19 Range/Units 15:35 15:47 WBC (4.0-11.0) K/uL RBC (4.50-5.90) M/uL Hgb (13.0-17.0) g/dL Hct (38.0-50.0) % MCV (80.0-98.0) fL MCH (27.0-32.0) pg MCHC (31.0-37.0) g/dL RDW Std Deviation (28.0-62.0) fl RDW Coeff of Dania (11.0-15.0) % Plt Count (150-400) K/uL MPV (7.40-12.00) fL Neut % (Auto) (48.0-80.0) % Lymph % (Auto) (16.0-40.0) % [place] % (Auto) (0.0-15.0) % Eos % (Auto) (0.0-7.0) % Baso % (Auto) (0.0-1.5) % Neut # (Auto) (1.4-5.7) K/uL Lymph # (Auto) (0.6-2.4) K/uL [place] # (Auto) (0.0-0.8) K/uL Eos # (Auto) (0.0-0.7) K/uL Baso # (Auto) (0.0-0.1) K/uL Nucleated RBC % /100WBC Nucleated RBCs # K/uL INR Sodium (136-148) mmol/L Potassium (3.5-5.1) mmol/L Chloride (98-107) mmol/L Carbon Dioxide (21.0-32.0) mmol/L BUN (7.0-18.0) mg/dL Creatinine (0.8-1.3) mg/dL Est Cr Clr Drug Dosing mL/min Estimated GFR (MDRD) ml/min Glucose (74-106) mg/dL POC Glucose 402 H (60-110) mg/dL Calcium (8.5-10.1) mg/dL Total Bilirubin (0.2-1.0) mg/dL AST (15-37) IU/L ALT (14-63) IU/L Alkaline Phosphatase (46-116) U/L Total Protein (6.4-8.2) g/dL Albumin (3.4-5.0) g/dL Globulin (2.6-4.0) g/dL Albumin/Globulin Ratio (0.9-1.6) Lipase (73-393) U/L Ketones NEGATIVE (NEG) Meds: Medications Discontinued Medications Generic Name Dose Route Start Last Admin Trade Name Lynn PRN Reason Stop Dose Admin Diphenhydramine HCl 25 mg 04/15/19 15:42 04/15/19 15:58 Benadryl IVPUSH 04/15/19 15:43 25 mg ONETIME ONE Administration Hydromorphone HCl 1 mg 04/15/19 15:42 04/15/19 15:59 Dilaudid IVPUSH 04/15/19 15:43 1 mg ONETIME ONE Administration Sodium Chloride 1,000 mls @ 999 mls/hr 04/15/19 15:23 04/15/19 15:59 Normal Saline IV 04/15/19 16:23 999 mls/hr STAT ONE Administration Sterile Water Confirm 04/15/19 15:53 04/15/19 16:00 Sterile Water For Injection Administered 04/15/19 15:54 20 mls/hr Dose Administration 20 mls @ as directed .ROUTE .STK-MED ONE Insulin Human Regular 15 unit 04/15/19 16:24 04/15/19 16:33 Novolin R SUBCUT 04/15/19 16:25 15 units ONETIME ONE Administration Protocol Metoclopramide HCl 10 mg 04/15/19 15:42 04/15/19 15:58 Reglan IV 04/15/19 15:43 10 mg ONETIME ONE Administration Ondansetron HCl 4 mg 04/15/19 15:23 04/15/19 16:00 Zofran IVPUSH 04/15/19 15:24 4 mg ONETIME ONE Administration Pantoprazole Sodium 80 mg 04/15/19 15:42 04/15/19 15:58 Protonix Iv IVPUSH 04/15/19 15:43 80 mg .BOLUS ONE Administration Departure - Departure Time of Disposition: 17:02 Disposition: Home, Self-Care 01 Condition: Good Clinical Impression: Gastroparesis Hematemesis/vomiting blood Qualifiers: Nausea presence: with nausea Qualified Code(s): K92.0 - Hematemesis Abdominal pain Qualifiers: Abdominal location: upper abdomen, unspecified Qualified Code(s): R10.10 - Upper abdominal pain, unspecified - Discharge Information Referrals: PCP,Unknown [Primary Care Provider] - Forms: ED Department Discharge Additional Instructions: The following information is given to patients seen in the emergency department who are being discharged to home. This information is to outline your options for follow-up care. We provide all patients seen in our emergency department with a follow-up referral. The need for follow-up, as well as the timing and circumstances, are variable depending upon the specifics of your emergency department visit. If you don't have a primary care physician on staff, we will provide you with a referral. We always advise you to contact your personal physician following an emergency department visit to inform them of the circumstance of the visit and for follow-up with them and/or the need for any referrals to a consulting specialist. The emergency department will also refer you to a specialist when appropriate. This referral assures that you have the opportunity for followup care with a specialist. All of these measure are taken in an effort to provide you with optimal care, which includes your followup. Under all circumstances we always encourage you to contact your private physician who remains a resource for coordinating your care. When calling for followup care, please make the office aware that this follow-up is from your recent emergency room visit. If for any reason you are refused follow-up, please contact the [facility] emergency department at and ask to speak to the emergency department charge nurse. [facility] Primary care- Internal Medicine and Family [address] [id number] Continue with your home medications including the Protonix Carafate and her insulin dosing regimen. Continue to monitor your blood sugar and try to push hydration over the next 24-48 hours. Eat a bland diet for the next 24 or 48 hours and please call and connect with her provider in the clinic next week for reevaluation and further care. Return to ER as needed and as discussed - My Orders Last 24 Hours: My Active Orders 04/15/19 15:45 Blood Glucose Check, Bedside [RC] ONETIME - Assessment/Plan Last 24 Hours: My Active Orders 04/15/19 15:45 Blood Glucose Check, Bedside [RC] ONETIME
[2019-04-15] MEDS ORDERED: Water For Injection, Sterile 20 ML ONE (15:53)
[2019-04-15 16:03] LABS: CARBON DIOXIDE,CO2 21.6 mmol/L (21.0-32.0); POTASSIUM,K 4.2 mmol/L (3.5-5.1)
[2019-04-15] MEDS ORDERED: Insulin Regular, Human 100 Units/ML 10 ML Vial SUBCUT ONE (16:24)
--- NOTE | 2019-04-15 16:43 | CR ---
INDICATION: : Upper abdominal pain. COMPARISON: CT of the abdomen and pelvis from 04/01/2019 and chest radiograph from the same date. FINDINGS: Erect and supine films of the abdomen were combined with an erect film of the chest. In the abdomen, there is no sign of distention of the small bowel or colon to suggest obstruction or ileus. There is no sign of free air. The liver appears to be mildly enlarged, reaching the superior iliac crest on the upright view, and not quite reaching it on the supine view. This is unchanged from the previous CT. The osseous structures are normal in appearance for the patient`s age. In the chest, the lungs are clear and the heart and mediastinum are normal in appearance. There has been no interval change. IMPRESSION: No obstruction or ileus. Mild hepatomegaly, of uncertain etiology. No abnormality seen in the chest. Dictated by Ramón Parrish MD @ Apr 15 2019 4:37PM Signed by Dr. Ramón Parrish @ Apr 15 2019 4:41PM
[2019-04-15 17:17] VITALS: BP 171/101; PULSE 102
== END 2019-04-15 17:17 | disposition home or self-care (01) ==
LOC: MW.ED 15:16
DX: K92.0 Hematemesis (principal); E10.43 Type 1 diabetes mellitus with diabetic autonomic (poly)neuropathy; K31.84 Gastroparesis; I12.9 Hypertensive chronic kidney disease with stage 1 through stage 4 chronic kidney disease, or unspecified chronic kidney disease; N18.9 Chronic kidney disease, unspecified; E10.22 Type 1 diabetes mellitus with diabetic chronic kidney disease; E10.21 Type 1 diabetes mellitus with diabetic nephropathy; F41.9 Anxiety disorder, unspecified; D64.9 Anemia, unspecified; Z89.511 Acquired absence of right leg below knee; K21.9 Gastro-esophageal reflux disease without esophagitis; Z79.82 Long term (current) use of aspirin; Z79.899 Other long term (current) drug therapy; Z88.0 Allergy status to penicillin; Z91.013 Allergy to seafood
CPT/HCPCS: 36415; 74022; 80053; 82009; 82962; 83690; 85025; 85610; 96361; 96374; 96375; 99284; C9113; J1170; J1200; J2405; J2765; J7040; J1815-GY

== ENCOUNTER 2019-04-16 02:56 | Observation (INO) | payer MEDICAID ==
[2019-04-16] MEDS ORDERED: Sodium Chloride 0.9% 1,000 ML IV ONE ×2 (03:10→05:34)
[2019-04-16] MEDS ORDERED: Ondansetron 4 MG/2 ML SDV IVPUSH ONE (03:10)
[2019-04-16] MEDS ORDERED: hydrALAZINE 20 MG/ML SDV IVPUSH ONE ×2 (03:11→06:07)
--- NOTE | 2019-04-16 03:18 | EDM.PDOC ---
ED HPI GENERAL MEDICAL PROBLEM - General Chief Complaint: Gastrointestinal Problem Stated Complaint: VOMITING BLOOD Time Seen by Provider: 04/16/19 03:13 - History of Present Illness INITIAL COMMENTS - FREE TEXT/NARRATIVE: HISTORY AND PHYSICAL: History of present illness: Patient is a 33-year-old black male with past medical history significant for chronic abdominal pain gastroparesis diabetes hypertension renal insufficiency patient is also had a below the knee amputation on the right. He returns this a.m. after treatment yesterday in our emergency department at that time he had a comprehensive workup and was given IV fluids narcotic analgesics and discharged home. Review of systems: As per history of present illness and below otherwise all systems reviewed and negative. Past medical history: As per history of present illness and as reviewed below otherwise noncontributory. Surgical history: As per history of present illness and as reviewed below otherwise noncontributory. Social history: No reported history of drug or alcohol abuse. Family history: As per history of present illness and as reviewed below otherwise noncontributory. Physical exam: HEENT: Atraumatic, normocephalic, , negative for conjunctival pallor or scleral icterus, mucous membranes right, throat clear, neck supple, nontender, trachea midline. Lungs: Clear to auscultation, breath sounds equal bilaterally, chest nontender. Heart: S1S2, regular, negative for clicks, rubs, or JVD. Abdomen: Soft, nondistended, nontender. Negative for masses or hepatosplenomegaly. Negative for costovertebral tenderness. Pelvis: Stable nontender. Genitourinary: Deferred. Rectal: Deferred. Extremities: Below the knee amputation on the right noted. Neuro: Awake, alert, oriented. Cranial nerves II through XII unremarkable. Cerebellum unremarkable. Motor and sensory unremarkable throughout. Exam nonfocal. Diagnostics: CBC CMP lipase venous blood gas Therapeutics: Saline 1 L bolus hydralazine 10 mg IV Zofran 4 mg Impression: #1 chronic abdominal pain #2 hypertension #3 diabetes #4 history of gastroparesis Definitive disposition and diagnosis as appropriate pending reevaluation and review of above. abdomen Pain Score (Numeric/FACES): 8 - Related Data Allergies Allergy/AdvReac Type Severity Reaction Status Date / Time shrimp Allergy Severe Other Verified 04/16/19 03:03 iodine Allergy Unknown Anaphylactic Verified 04/16/19 03:03 Shock Penicillins Allergy Unknown Anaphylactic Verified 04/16/19 03:03 Shock shellfish derived Allergy Anaphylactic Verified 04/16/19 03:03 Shock gluten Allergy Unknown Muscle Uncoded 04/16/19 03:03 Aches Home Meds: Home Meds Doxazosin [Cardura] 2 mg PO BEDTIME 09/25/17 [History] Enalapril [Vasotec] 40 mg PO BEDTIME 09/25/17 [History] Torsemide 20 mg PO DAILY 09/25/17 [History] amLODIPine Besylate [Amlodipine Besylate] 10 mg PO BEDTIME 09/25/17 [History] Ferrous Sulfate 324 mg PO DAILY 01/20/18 [History] hydrALAZINE [Apresoline] 25 mg PO TID 30 Days #90 tablet 01/29/18 [Rx] Insulin Glarg,Human.Rec.Analog [Lantus Solostar] 35 units SUBCUT BEDTIME [History] Insulin Aspart [NovoLOG] 0 unit SUBCUT ASDIRECTED PRN 05/23/18 [History] Spironolactone [Aldactone] 25 mg PO DAILY 12/14/18 [History] hydroCHLOROthiazide [Hydrochlorothiazide] 25 mg PO DAILY 12/14/18 [History] Aspirin [Halfprin] 81 mg PO DAILY #30 tab.ec 12/15/18 [Rx] atorvaSTATin [Lipitor] 80 mg PO BEDTIME #60 tablet 12/15/18 [Rx] Metoclopramide [Reglan] 5 mg PO TIDAC #90 tab 03/11/19 [Rx] Iron Sucrose Complex [Venofer] 200 mg IV Q2D #4 bag 04/05/19 [Rx] Pantoprazole Sodium [Protonix] 40 mg PO BID #60 tablet. 04/05/19 [Rx] Sucralfate [Carafate] 1 gm PO QIDACANDBED #120 ml 04/05/19 [Rx] Past Medical History - Past Health History Medical/Surgical History: Denies Medical/Surgical History HEENT History: Reports: Impaired Vision Other HEENT History: blind right eye Cardiovascular History: Reports: Hypertension Respiratory History: Reports: None Gastrointestinal History: Reports: Gastritis, GERD, Hiatal Hernia, Other (See Below) Other Gastrointestinal History: h/o gastric ulcers, h/o hiatal hernia; gastroparesis Genitourinary History: Reports: Chronic Renal Insuffiency, Diabetic Nephropathy Musculoskeletal History: Reports: Amputation Neurological History: Reports: Neuropathy, Peripheral Other Neuro History: stroke 3 months ago Psychiatric History: Reports: Anxiety Endocrine/Metabolic History: Reports: Diabetes, Type I Other Endocrine/Metabolic History: brittle diabetic. History of hyperkalemia and DKA Hematologic History: Reports: Anemia Immunologic History: Reports: None Oncologic (Cancer) History: Reports: None Dermatologic History: Reports: Other (See Below) Other Dermatologic History: diabetic foot ulcers - Infectious Disease History Infectious Disease History: Reports: Chicken Pox, MRSA Other Infectious Disease History: 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 - Past Surgical History Head Surgeries/Procedures: Reports: None Social & Family History - Family History Family Medical History: Noncontributory Cardiac: Reports: High Cholesterol, Hypertension OBGYN: Reports: Neurological: Reports: None - Tobacco Use Smoking Status *Q: Never Smoker - Caffeine Use Caffeine Use: Reports: Coffee, Energy Drinks, Soda, Tea Other Caffeine Use: daily - Recreational Drug Use Recreational Drug Use: No - Living Situation & Occupation Living situation: Reports: Single Occupation: Employed (Currently unemployed.) ED ROS GENERAL - Review of Systems Review Of Systems: ROS reveals no pertinent complaints other than HPI. ED EXAM, GENERAL - Physical Exam Exam: See Below (The dictation) Course - Vital Signs Last Recorded V/S: Last Vital Signs Temp 36.1 C 04/16/19 02:56 Pulse 116 H 04/16/19 03:55 Resp 22 H 04/16/19 03:55 BP 199/111 H 04/16/19 03:55 Pulse Ox 97 04/16/19 03:55 - Orders/Labs/Meds Orders: Active Orders 24 hr Category Date Time Status EKG Documentation Completion [RC] STAT Care 04/16/19 03:12 Active Abdomen Series w Chest 1V [CR] Stat Exams 04/16/19 04:14 Ordered Acute Abdominal Series [Abdomen 1V Upright] [CR] Stat Exams 04/16/19 04:13 Stop Req Labs: Laboratory Tests 04/16/19 04/16/19 04/16/19 Range/Units 03:15 03:15 03:15 WBC 13.49 H (4.0-11.0) K/uL RBC 5.21 (4.50-5.90) M/uL Hgb 11.5 L (13.0-17.0) g/dL Hct 36.5 L (38.0-50.0) % MCV 70.1 L (80.0-98.0) fL MCH 22.1 L (27.0-32.0) pg MCHC 31.5 (31.0-37.0) g/dL RDW Std Deviation 44.9 (28.0-62.0) fl RDW Coeff of Dania 18 H (11.0-15.0) % Plt Count 338 (150-400) K/uL MPV 10.90 (7.40-12.00) fL Neut % (Auto) 78.3 (48.0-80.0) % Lymph % (Auto) 15.4 L (16.0-40.0) % [place] % (Auto) 5.9 (0.0-15.0) % Eos % (Auto) 0.2 (0.0-7.0) % Baso % (Auto) 0.2 (0.0-1.5) % Neut # (Auto) 10.6 H (1.4-5.7) K/uL Lymph # (Auto) 2.1 (0.6-2.4) K/uL [place] # (Auto) 0.8 (0.0-0.8) K/uL Eos # (Auto) 0.0 (0.0-0.7) K/uL Baso # (Auto) 0.0 (0.0-0.1) K/uL Nucleated RBC % 0.0 /100WBC Nucleated RBCs # 0 K/uL VBG pH 7.40 (7.31-7.41) VBG pCO2 33 L (35-45) mmHG VBG pO2 46 H (30-40) mmHG VBG HCO3 20 L (22-30) mEq/L VBG Total CO2 19 L (41-51) mmol/L VBG Base Excess -3.9 L (-3.0-3.0) Sodium 135 L (136-148) mmol/L Potassium 4.4 (3.5-5.1) mmol/L Chloride 101 (98-107) mmol/L Carbon Dioxide 19.6 L (21.0-32.0) mmol/L BUN 46 H (7.0-18.0) mg/dL Creatinine 2.3 H (0.8-1.3) mg/dL Est Cr Clr Drug Dosing 49.11 mL/min Estimated GFR (MDRD) 40.1 ml/min Glucose 569 H* (74-106) mg/dL Calcium 8.9 (8.5-10.1) mg/dL Total Bilirubin 0.3 (0.2-1.0) mg/dL AST 14 L (15-37) IU/L ALT 30 (14-63) IU/L Alkaline Phosphatase 111 (46-116) U/L Total Protein 6.6 (6.4-8.2) g/dL Albumin 2.8 L (3.4-5.0) g/dL Globulin 3.8 (2.6-4.0) g/dL Albumin/Globulin Ratio 0.7 L (0.9-1.6) Lipase 24 L (73-393) U/L Meds: Medications Discontinued Medications Generic Name Dose Route Start Last Admin Trade Name Freq PRN Reason Stop Dose Admin Hydralazine HCl 10 mg 04/16/19 03:11 04/16/19 03:27 Apresoline IVPUSH 04/16/19 03:12 10 mg ONETIME ONE Administration Sodium Chloride 1,000 mls @ 999 mls/hr 04/16/19 03:10 04/16/19 03:24 Normal Saline IV 04/16/19 04:10 999 mls/hr .Bolus ONE Administration Insulin Human Regular 20 unit 04/16/19 03:57 04/16/19 04:05 Novolin R IVPUSH 04/16/19 03:58 20 units ONETIME ONE Administration Protocol Insulin Human Regular 10 unit 04/16/19 03:59 04/16/19 04:05 Novolin R SUBCUT 04/16/19 04:00 10 units ONETIME ONE Administration Protocol Ondansetron HCl 4 mg 04/16/19 03:10 04/16/19 03:25 Zofran IVPUSH 04/16/19 03:11 4 mg ONETIME ONE Administration Departure - Departure Time of Disposition: 04:18 Disposition: DC/Tfer to Acute Hospital 02 Condition: Good Clinical Impression: Uncontrolled diabetes mellitus, History of GI bleed, Chronic renal insufficiency, Blind right eye, Medical non-compliance, Gastroparesis, Chronic abdominal pain Hypertension Qualifiers: Hypertension type: essential hypertension Qualified Code(s): I10 - Essential ( primary) hypertension - Discharge Information Referrals: PCP,None [Primary Care Provider] - Forms: ED Department Discharge - My Orders Last 24 Hours: My Active Orders 04/16/19 03:12 EKG Documentation Completion [RC] STAT 04/16/19 04:13 Acute Abdominal Series [Abdomen 1V Upright] [CR] Stat 04/16/19 04:14 Abdomen Series w Chest 1V [CR] Stat - Assessment/Plan Last 24 Hours: My Active Orders 04/16/19 03:12 EKG Documentation Completion [RC] STAT 04/16/19 04:13 Acute Abdominal Series [Abdomen 1V Upright] [CR] Stat 04/16/19 04:14 Abdomen Series w Chest 1V [CR] Stat
[2019-04-16 03:54] LABS: CARBON DIOXIDE,CO2 19.6 mmol/L (21.0-32.0); POTASSIUM,K 4.4 mmol/L (3.5-5.1)
[2019-04-16] MEDS ORDERED: Insulin Regular, Human 100 Units/ML 10 ML Vial IVPUSH ONE (03:57)
[2019-04-16] MEDS ORDERED: Insulin Regular, Human 100 Units/ML 10 ML Vial SUBCUT ONE (03:59)
--- NOTE | 2019-04-16 04:50 | CR ---
Indication: Abdominal pain Technique: Abdomen 3 view Comparison: Abdomen 04/15/2019 Findings/Impression: View of the chest shows no focal consolidation. Heart and mediastinum unremarkable. There are no dilated loops of large or small intestine. Small amount of stool within the colon. No abnormal calcifications. Osseous structures unremarkable. Dictated by Kj Meyer MD @ Apr 16 2019 4:48AM Signed by Dr. Kj Meyer @ Apr 16 2019 4:49AM
[2019-04-16] MEDS ORDERED: diphenhydrAMINE 50 MG/ML SDV IVPUSH ONE (07:30)
[2019-04-16] MEDS ORDERED: Metoclopramide 10 MG/2 ML SDV IV ONE (07:30)
[2019-04-16] MEDS: Acetaminophen 325 MG Tab PO ONE ×2 (08:24→08:25)
[2019-04-16] MEDS ORDERED: LORazepam 2 MG/ML SDV IVPUSH ONE (08:59)
[2019-04-16] MEDS ORDERED: Ondansetron 4 MG Tab.DIS PO PRN (11:39)
[2019-04-16] MEDS ORDERED: Ondansetron 4 MG/2 ML SDV IVPUSH PRN (11:39)
[2019-04-16] MEDS ORDERED: Enoxaparin 40 MG/0.4 ML Syringe SUBCUT SCH (11:45)
--- NOTE | 2019-04-16 11:55 | PCM.HP ---
H&P History of Present Illness - General Date of Service: 04/16/19 Admit Problem/Dx: Admission Diagnosis/Problem Admission Diagnosis/Problem Nausea and vomiting - History of Present Illness Initial Comments - Free Text/Narative: 33 y/o male with history of DM2 s/p right BKA, gastroparesis who presented to the ER multiple times in the past 24 hours for nausea and vomiting. Initial BP in ER was 210/110. He was administered Ativan and that seemed to help with his blood pressure. Was noted to be hyperglycemic in the 500's and acute on chronic kidney injury. Denies any chest pain, dyspnea, dysuria. Endorses some abdominal pain and diarrhea. No recent illness. abdomen Pain Score (Numeric/FACES): 8 - Related Data Allergies/Adverse Reactions: Allergies Allergy/AdvReac Type Severity Reaction Status Date / Time shrimp Allergy Severe Other Verified 04/16/19 03:03 iodine Allergy Unknown Anaphylactic Verified 04/16/19 03:03 Shock Penicillins Allergy Unknown Anaphylactic Verified 04/16/19 03:03 Shock shellfish derived Allergy Anaphylactic Verified 04/16/19 03:03 Shock gluten Allergy Unknown Muscle Uncoded 04/16/19 03:03 Aches Home Medications: Home Meds Doxazosin [Cardura] 2 mg PO BEDTIME 09/25/17 [History] Enalapril [Vasotec] 40 mg PO BEDTIME 09/25/17 [History] Torsemide 20 mg PO DAILY 09/25/17 [History] amLODIPine Besylate [Amlodipine Besylate] 10 mg PO BEDTIME 09/25/17 [History] Ferrous Sulfate 324 mg PO DAILY 01/20/18 [History] hydrALAZINE [Apresoline] 25 mg PO TID 30 Days #90 tablet 01/29/18 [Rx] Insulin Glarg,Human.Rec.Analog [Lantus Solostar] 35 units SUBCUT BEDTIME [History] Insulin Aspart [NovoLOG] 0 unit SUBCUT ASDIRECTED PRN 05/23/18 [History] Spironolactone [Aldactone] 25 mg PO DAILY 12/14/18 [History] hydroCHLOROthiazide [Hydrochlorothiazide] 25 mg PO DAILY 12/14/18 [History] Aspirin [Halfprin] 81 mg PO DAILY #30 tab.ec 12/15/18 [Rx] atorvaSTATin [Lipitor] 80 mg PO BEDTIME #60 tablet 12/15/18 [Rx] Metoclopramide [Reglan] 5 mg PO TIDAC #90 tab 03/11/19 [Rx] Iron Sucrose Complex [Venofer] 200 mg IV Q2D #4 bag 04/05/19 [Rx] Pantoprazole Sodium [Protonix] 40 mg PO BID #60 tablet. 04/05/19 [Rx] Sucralfate [Carafate] 1 gm PO QIDACANDBED #120 ml 04/05/19 [Rx] Past Medical History - Past Health History Medical/Surgical History: Denies Medical/Surgical History HEENT History: Reports: Impaired Vision Other HEENT History: blind right eye Cardiovascular History: Reports: Hypertension Respiratory History: Reports: None Gastrointestinal History: Reports: Gastritis, GERD, Hiatal Hernia, Other (See Below) Other Gastrointestinal History: h/o gastric ulcers, h/o hiatal hernia; gastroparesis Genitourinary History: Reports: Chronic Renal Insuffiency, Diabetic Nephropathy Musculoskeletal History: Reports: Amputation Neurological History: Reports: Neuropathy, Peripheral Other Neuro History: stroke 3 months ago Psychiatric History: Reports: Anxiety Endocrine/Metabolic History: Reports: Diabetes, Type I Other Endocrine/Metabolic History: brittle diabetic. History of hyperkalemia and DKA Hematologic History: Reports: Anemia Immunologic History: Reports: None Oncologic (Cancer) History: Reports: None Dermatologic History: Reports: Other (See Below) Other Dermatologic History: diabetic foot ulcers - Infectious Disease History Infectious Disease History: Reports: Chicken Pox, MRSA Other Infectious Disease History: 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 - Past Surgical History Head Surgeries/Procedures: Reports: None Social & Family History - Family History Family Medical History: Noncontributory Cardiac: Reports: High Cholesterol, Hypertension OBGYN: Reports: Neurological: Reports: None - Tobacco Use Smoking Status *Q: Never Smoker - Caffeine Use Caffeine Use: Reports: Coffee, Energy Drinks, Soda, Tea Other Caffeine Use: daily - Recreational Drug Use Recreational Drug Use: No - Living Situation & Occupation Living situation: Reports: Single Occupation: Employed (Currently unemployed.) H&P Review of Systems - Review of Systems: Review Of Systems: ROS reveals no pertinent complaints other than HPI. Exam - Exam Exam: See Below - Vital Signs Vital Signs: Last Vital Signs Temp 36.2 C 04/16/19 05:00 Pulse 118 H 04/16/19 09:13 Resp 14 04/16/19 10:14 BP 145/95 H 04/16/19 10:14 Pulse Ox 96 04/16/19 10:14 Weight: 79.379 kg - Exam General: Alert, Oriented, Cooperative Lungs: Clear to Auscultation, Normal Respiratory Effort. No: Crackles, Wheezing Cardiovascular: Regular Rhythm, Tachycardia GI/Abdominal Exam: Normal Bowel Sounds, Soft, Non-Tender, No Distention Extremities: Normal Inspection, No Pedal Edema Skin: Warm, Dry - Patient Data Lab Results Last 24 hrs: Laboratory Results - last 24 hr 04/16/19 04/16/19 04/16/19 Range/Units 03:15 03:15 03:15 WBC 13.49 H (4.0-11.0) K/uL RBC 5.21 (4.50-5.90) M/uL Hgb 11.5 L (13.0-17.0) g/dL Hct 36.5 L (38.0-50.0) % MCV 70.1 L (80.0-98.0) fL MCH 22.1 L (27.0-32.0) pg MCHC 31.5 (31.0-37.0) g/dL RDW Std Deviation 44.9 (28.0-62.0) fl RDW Coeff of Dania 18 H (11.0-15.0) % Plt Count 338 (150-400) K/uL MPV 10.90 (7.40-12.00) fL Neut % (Auto) 78.3 (48.0-80.0) % Lymph % (Auto) 15.4 L (16.0-40.0) % [place] % (Auto) 5.9 (0.0-15.0) % Eos % (Auto) 0.2 (0.0-7.0) % Baso % (Auto) 0.2 (0.0-1.5) % Neut # (Auto) 10.6 H (1.4-5.7) K/uL Lymph # (Auto) 2.1 (0.6-2.4) K/uL [place] # (Auto) 0.8 (0.0-0.8) K/uL Eos # (Auto) 0.0 (0.0-0.7) K/uL Baso # (Auto) 0.0 (0.0-0.1) K/uL Nucleated RBC % 0.0 /100WBC Nucleated RBCs # 0 K/uL VBG pH 7.40 (7.31-7.41) VBG pCO2 33 L (35-45) mmHG VBG pO2 46 H (30-40) mmHG VBG HCO3 20 L (22-30) mEq/L VBG Total CO2 19 L (41-51) mmol/L VBG Base Excess -3.9 L (-3.0-3.0) Sodium 135 L (136-148) mmol/L Potassium 4.4 (3.5-5.1) mmol/L Chloride 101 (98-107) mmol/L Carbon Dioxide 19.6 L (21.0-32.0) mmol/L BUN 46 H (7.0-18.0) mg/dL Creatinine 2.3 H (0.8-1.3) mg/dL Est Cr Clr Drug Dosing 49.11 mL/min Estimated GFR (MDRD) 40.1 ml/min Glucose 569 H* (74-106) mg/dL POC Glucose (60-110) mg/dL Calcium 8.9 (8.5-10.1) mg/dL Total Bilirubin 0.3 (0.2-1.0) mg/dL AST 14 L (15-37) IU/L ALT 30 (14-63) IU/L Alkaline Phosphatase 111 (46-116) U/L Total Protein 6.6 (6.4-8.2) g/dL Albumin 2.8 L (3.4-5.0) g/dL Globulin 3.8 (2.6-4.0) g/dL Albumin/Globulin Ratio 0.7 L (0.9-1.6) Lipase 24 L (73-393) U/L 04/16/19 04/16/19 04/16/19 Range/Units 05:11 06:04 09:12 WBC (4.0-11.0) K/uL RBC (4.50-5.90) M/uL Hgb (13.0-17.0) g/dL Hct (38.0-50.0) % MCV (80.0-98.0) fL MCH (27.0-32.0) pg MCHC (31.0-37.0) g/dL RDW Std Deviation (28.0-62.0) fl RDW Coeff of Dania (11.0-15.0) % Plt Count (150-400) K/uL MPV (7.40-12.00) fL Neut % (Auto) (48.0-80.0) % Lymph % (Auto) (16.0-40.0) % [place] % (Auto) (0.0-15.0) % Eos % (Auto) (0.0-7.0) % Baso % (Auto) (0.0-1.5) % Neut # (Auto) (1.4-5.7) K/uL Lymph # (Auto) (0.6-2.4) K/uL [place] # (Auto) (0.0-0.8) K/uL Eos # (Auto) (0.0-0.7) K/uL Baso # (Auto) (0.0-0.1) K/uL Nucleated RBC % /100WBC Nucleated RBCs # K/uL VBG pH (7.31-7.41) VBG pCO2 (35-45) mmHG VBG pO2 (30-40) mmHG VBG HCO3 (22-30) mEq/L VBG Total CO2 (41-51) mmol/L VBG Base Excess (-3.0-3.0) Sodium (136-148) mmol/L Potassium (3.5-5.1) mmol/L Chloride (98-107) mmol/L Carbon Dioxide (21.0-32.0) mmol/L BUN (7.0-18.0) mg/dL Creatinine (0.8-1.3) mg/dL Est Cr Clr Drug Dosing mL/min Estimated GFR (MDRD) ml/min Glucose (74-106) mg/dL POC Glucose 485 H 311 H 216 H (60-110) mg/dL Calcium (8.5-10.1) mg/dL Total Bilirubin (0.2-1.0) mg/dL AST (15-37) IU/L ALT (14-63) IU/L Alkaline Phosphatase (46-116) U/L Total Protein (6.4-8.2) g/dL Albumin (3.4-5.0) g/dL Globulin (2.6-4.0) g/dL Albumin/Globulin Ratio (0.9-1.6) Lipase (73-393) U/L Result Diagrams: 04/16/19 03:15 04/16/19 03:15 Problem List Initiated/Reviewed/Updated: Yes Orders Last 24hrs: Active Orders 24 hr Category Date Time Status Patient Status [ADT] Stat ADT 04/16/19 10:17 Active Blood Glucose Check, Bedside [RC] ONETIME Care 04/16/19 09:03 Active Intake and Output [RC] QSHIFT Care 04/16/19 11:41 Active Oxygen Therapy [RC] PRN Care 04/16/19 11:39 Active Up With Assistance [RC] ASDIRECTED Care 04/16/19 11:39 Active VTE/DVT Education [RC] PER UNIT ROUTINE Care 04/16/19 11:39 Active Vital Signs [RC] Q4H Care 04/16/19 11:39 Active [employer] Diet [DIET] Diet 04/16/19 Lunch Active UA RFX FRANTZ AND CULT IF INDIC [URIN] Routine Lab 04/16/19 11:47 Ordered Enoxaparin [Lovenox] Med 04/16/19 11:45 Ordered 30 mg SUBCUT Q24H Ondansetron [Zofran ODT] Med 04/16/19 11:39 Ordered 4 mg PO Q4H PRN Ondansetron [Zofran] Med 04/16/19 11:39 Ordered 4 mg IVPUSH Q4H PRN Resuscitation Status Routine Resus Stat 04/16/19 11:39 Ordered Medication Orders Enoxaparin Sodium (Lovenox) 30 mg SUBCUT Q24H MICHAEL Ondansetron HCl (Zofran Odt) 4 mg PO Q4H PRN PRN Reason: nausea, able to take PO Ondansetron HCl (Zofran) 4 mg IVPUSH Q4H PRN PRN Reason: Nausea Assessment/Plan Comment:: A: 1. Nausea, vomiting 2. Hypertensive urgency 3. Acute on chronic kidney disease 4. Hyperglycemia 5. Leukocytosis 6. PMH DM2, gastroparesis P: 1. I suspect that his nausea, vomiting is secondary to underlying gastroparesis. Will add Reglan to help with nausea and gastroparesis. Will get U /A, urine drug screen. Will monitor kidney function. ISS for his hyperglycemia. Diabetic diet. Ativan PRN for anxiety, agitation. Dispo: 1-2 days.
[2019-04-16] MEDS ORDERED: Sodium Chloride 0.9% 1,000 ML IV SCH (12:15)
[2019-04-16] MEDS: Enoxaparin 40 MG/0.4 ML Syringe SUBCUT SCH (12:41)
[2019-04-16] MEDS ORDERED: Metoclopramide 10 MG/2 ML SDV IVPUSH PRN (14:07)
[2019-04-16] MEDS ORDERED: Ketorolac 30 MG/ML SDV IM PRN (14:10)
[2019-04-16] MEDS: Ketorolac 30 MG/ML SDV IVPUSH PRN ×2 (14:47→23:56)
[2019-04-16] MEDS: hydrALAZINE 25 MG Tab PO SCH ×3 (14:57→22:24)
[2019-04-16] MEDS ORDERED: Metoclopramide 5 MG Tab PO SCH (17:00)
[2019-04-16] MEDS: Insulin Aspart 100 Units/ML 3 ML Pen SUBCUT SCH (17:54)
[2019-04-16] MEDS ORDERED: Labetalol 100 MG/20 ML MDV IVPUSH ONE (18:39)
[2019-04-16] MEDS: LORazepam 2 MG/ML SDV IVPUSH PRN (19:16)
[2019-04-16] MEDS: amLODIPine 5 MG Tab PO SCH (20:15)
[2019-04-16] MEDS: Pantoprazole 40 MG Tab.CR PO SCH (20:15)
[2019-04-16] MEDS: Insulin Glargine,Human Rec. Analog 100 Units/ML 3 ML Pen SUBCUT SCH (21:14)
[2019-04-16] MEDS: Ondansetron 4 MG/2 ML SDV IVPUSH PRN (23:47)
[2019-04-17] MEDS: LORazepam 2 MG/ML SDV IVPUSH PRN (03:16)
[2019-04-17] MEDS: hydrALAZINE 25 MG Tab PO SCH ×3 (06:21→21:04)
[2019-04-17 06:32] LABS: CARBON DIOXIDE,CO2 25.3 mmol/L (21.0-32.0); POTASSIUM,K 3.7 mmol/L (3.5-5.1)
[2019-04-17] MEDS ORDERED: 50% Dextrose in Water 50 ML Syringe IVPUSH ONE ×2 (07:43→11:35)
[2019-04-17] MEDS: Ondansetron 4 MG/2 ML SDV IVPUSH PRN (07:52)
[2019-04-17] MEDS: Insulin Aspart 100 Units/ML 3 ML Pen SUBCUT SCH ×3 (08:01→17:31)
[2019-04-17] MEDS: Pantoprazole 40 MG Tab.CR PO SCH ×2 (09:23→20:49)
--- NOTE | 2019-04-17 10:46 | PCM.DCSUM1 ---
<Demian Medina M - Last Filed: 04/17/19 10:41> Discharge Summary - Hospital Course Free Text/Narrative:: Patient is a 33-year-old male who was admitted for nausea, vomiting and hyperglycemia. He has a past medical history of right below-knee amputation, diabetes mellitus type 2, hypertension, gastroparesis, and stroke. Patient's nausea and vomiting, likely secondary to gastroparesis and as such, Reglan was added to his medication regimen. For hyperglycemia, patient was on sliding scale insulin. Chest x-ray on admission showed no acute cardiopulmonary processes. Patient's glucose was controlled on day of discharge. Patient would benefit from gastroenterology referral in the outpatient setting for further workup of gastroparesis. Gastroenterology referral information was provided to patient on discharge. - Discharge Data Discharge Date: 04/17/19 Discharge Disposition: Home, Self-Care 01 Condition: Stable - Patient Instructions Diet: Diabetic Diet Activity: As Tolerated Notify Provider of: Fever, Increased Pain, Swelling and Redness, Drainage, Nausea and/or Vomiting - Discharge Plan *PRESCRIPTION DRUG MONITORING PROGRAM REVIEWED*: Not Applicable *COPY OF PRESCRIPTION DRUG MONITORING REPORT IN PATIENT IVELISSE: Not Applicable Home Medications: Home Meds Doxazosin [Cardura] 2 mg PO BEDTIME 09/25/17 [History] Enalapril [Vasotec] 40 mg PO BEDTIME 09/25/17 [History] Torsemide 20 mg PO DAILY 09/25/17 [History] amLODIPine Besylate [Amlodipine Besylate] 10 mg PO BEDTIME 09/25/17 [History] Ferrous Sulfate 324 mg PO DAILY 01/20/18 [History] hydrALAZINE [Apresoline] 25 mg PO TID 30 Days #90 tablet 01/29/18 [Rx] Insulin Glarg,Human.Rec.Analog [Lantus Solostar] 35 units SUBCUT BEDTIME [History] Insulin Aspart [NovoLOG] 0 unit SUBCUT ASDIRECTED PRN 05/23/18 [History] Spironolactone [Aldactone] 25 mg PO DAILY 12/14/18 [History] hydroCHLOROthiazide [Hydrochlorothiazide] 25 mg PO DAILY 12/14/18 [History] Aspirin [Halfprin] 81 mg PO DAILY #30 tab.ec 12/15/18 [Rx] atorvaSTATin [Lipitor] 80 mg PO BEDTIME #60 tablet 12/15/18 [Rx] Metoclopramide [Reglan] 5 mg PO TIDAC #90 tab 03/11/19 [Rx] Iron Sucrose Complex [Venofer] 200 mg IV Q2D #4 bag 04/05/19 [Rx] Pantoprazole Sodium [Protonix] 40 mg PO BID #60 tablet. 04/05/19 [Rx] Sucralfate [Carafate] 1 gm PO QIDACANDBED #120 ml 04/05/19 [Rx] Patient Handouts: Nausea and Vomiting, Adult Referrals: Chico Rodgers MD [Ordering Only Provider] - (Please call the clinics for a follow up after 1 week. ) Fitz Infante MD [Physician] - - Discharge Summary/Plan Comment DC Time >30 min.: No - Patient Data Vitals - Most Recent: Last Vital Signs Temp 98.0 F 04/17/19 08:00 Pulse 92 04/17/19 08:00 Resp 16 04/17/19 08:00 BP 136/74 04/17/19 08:00 Pulse Ox 98 04/17/19 08:00 Weight - Most Recent: 79.379 kg I&O - Last 24 hours: Intake & Output 04/16/19 04/17/19 04/17/19 22:59 06:59 14:59 Intake Total 1165 1160 Output Total 900 720 Balance 265 440 Lab Results - Last 24 hrs: Laboratory Results - last 24 hr 04/16/19 04/16/19 04/16/19 Range/Units 17:33 18:33 19:15 WBC (4.0-11.0) K/uL RBC (4.50-5.90) M/uL Hgb (13.0-17.0) g/dL Hct (38.0-50.0) % MCV (80.0-98.0) fL MCH (27.0-32.0) pg MCHC (31.0-37.0) g/dL RDW Std Deviation (28.0-62.0) fl RDW Coeff of Dania (11.0-15.0) % Plt Count (150-400) K/uL MPV (7.40-12.00) fL Nucleated RBC % /100WBC Nucleated RBCs # K/uL Sodium (136-148) mmol/L Potassium (3.5-5.1) mmol/L Chloride (98-107) mmol/L Carbon Dioxide (21.0-32.0) mmol/L BUN (7.0-18.0) mg/dL Creatinine (0.8-1.3) mg/dL Est Cr Clr Drug Dosing mL/min Estimated GFR (MDRD) ml/min Glucose (74-106) mg/dL POC Glucose 490 H > 500 H (60-110) mg/dL Calcium (8.5-10.1) mg/dL Urine Color YELLOW Urine Appearance CLEAR Urine pH 6.0 (5.0-8.0) Ur Specific [place] 1.025 (1.001-1.035) Urine Protein >=300 H (NEGATIVE) mg/dL Urine Glucose (UA) >=1000 (NEGATIVE) mg/dL Urine Ketones 40 H (NEGATIVE) mg/dL Urine Occult Blood SMALL H (NEGATIVE) Urine Nitrite NEGATIVE (NEGATIVE) Urine Bilirubin NEGATIVE (NEGATIVE) Urine Urobilinogen 0.2 (<2.0) EU/dL Ur Leukocyte Esterase NEGATIVE (NEGATIVE) Urine RBC 1-3 (0-2/HPF) Urine WBC 0-2 (0-5/HPF) Ur Epithelial Cells OCCASIONAL (NONE-FEW) Urine Bacteria RARE (NEGATIVE) Urine Opiates Screen (NEGATIVE) Ur Oxycodone Screen (NEGATIVE) Urine Methadone Screen (NEGATIVE) Ur Barbiturates Screen (NEGATIVE) Ur Phencyclidine Scrn (NEGATIVE) Ur Amphetamine Screen (NEGATIVE) U Methamphetamines Scrn (NEGATIVE) U Benzodiazepines Scrn (NEGATIVE) U Cocaine Metab Screen (NEGATIVE) U Marijuana (THC) Screen (NEGATIVE) 04/16/19 04/16/19 04/16/19 Range/Units 19:15 19:43 21:52 WBC (4.0-11.0) K/uL RBC (4.50-5.90) M/uL Hgb (13.0-17.0) g/dL Hct (38.0-50.0) % MCV (80.0-98.0) fL MCH (27.0-32.0) pg MCHC (31.0-37.0) g/dL RDW Std Deviation (28.0-62.0) fl RDW Coeff of Dania (11.0-15.0) % Plt Count (150-400) K/uL MPV (7.40-12.00) fL Nucleated RBC % /100WBC Nucleated RBCs # K/uL Sodium (136-148) mmol/L Potassium (3.5-5.1) mmol/L Chloride (98-107) mmol/L Carbon Dioxide (21.0-32.0) mmol/L BUN (7.0-18.0) mg/dL Creatinine (0.8-1.3) mg/dL Est Cr Clr Drug Dosing mL/min Estimated GFR (MDRD) ml/min Glucose (74-106) mg/dL POC Glucose 408 H 239 H (60-110) mg/dL Calcium (8.5-10.1) mg/dL Urine Color Urine Appearance Urine pH (5.0-8.0) Ur Specific [place] (1.001-1.035) Urine Protein (NEGATIVE) mg/dL Urine Glucose (UA) (NEGATIVE) mg/dL Urine Ketones (NEGATIVE) mg/dL Urine Occult Blood (NEGATIVE) Urine Nitrite (NEGATIVE) Urine Bilirubin (NEGATIVE) Urine Urobilinogen (<2.0) EU/dL Ur Leukocyte Esterase (NEGATIVE) Urine RBC (0-2/HPF) Urine WBC (0-5/HPF) Ur Epithelial Cells (NONE-FEW) Urine Bacteria (NEGATIVE) Urine Opiates Screen NEGATIVE (NEGATIVE) Ur Oxycodone Screen NEGATIVE (NEGATIVE) Urine Methadone Screen NEGATIVE (NEGATIVE) Ur Barbiturates Screen NEGATIVE (NEGATIVE) Ur Phencyclidine Scrn NEGATIVE (NEGATIVE) Ur Amphetamine Screen NEGATIVE (NEGATIVE) U Methamphetamines Scrn NEGATIVE (NEGATIVE) U Benzodiazepines Scrn NEGATIVE (NEGATIVE) U Cocaine Metab Screen NEGATIVE (NEGATIVE) U Marijuana (THC) Screen POSITIVE (NEGATIVE) 04/16/19 04/17/19 04/17/19 Range/Units 23:38 00:46 01:49 WBC (4.0-11.0) K/uL RBC (4.50-5.90) M/uL Hgb (13.0-17.0) g/dL Hct (38.0-50.0) % MCV (80.0-98.0) fL MCH (27.0-32.0) pg MCHC (31.0-37.0) g/dL RDW Std Deviation (28.0-62.0) fl RDW Coeff of Dania (11.0-15.0) % Plt Count (150-400) K/uL MPV (7.40-12.00) fL Nucleated RBC % /100WBC Nucleated RBCs # K/uL Sodium (136-148) mmol/L Potassium (3.5-5.1) mmol/L Chloride (98-107) mmol/L Carbon Dioxide (21.0-32.0) mmol/L BUN (7.0-18.0) mg/dL Creatinine (0.8-1.3) mg/dL Est Cr Clr Drug Dosing mL/min Estimated GFR (MDRD) ml/min Glucose (74-106) mg/dL POC Glucose 133 H 100 56 L (60-110) mg/dL Calcium (8.5-10.1) mg/dL Urine Color Urine Appearance Urine pH (5.0-8.0) Ur Specific H[place] (1.001-1.035) Urine Protein (NEGATIVE) mg/dL Urine Glucose (UA) (NEGATIVE) mg/dL Urine Ketones (NEGATIVE) mg/dL Urine Occult Blood (NEGATIVE) Urine Nitrite (NEGATIVE) Urine Bilirubin (NEGATIVE) Urine Urobilinogen (<2.0) EU/dL Ur Leukocyte Esterase (NEGATIVE) Urine RBC (0-2/HPF) Urine WBC (0-5/HPF) Ur Epithelial Cells (NONE-FEW) Urine Bacteria (NEGATIVE) Urine Opiates Screen (NEGATIVE) Ur Oxycodone Screen (NEGATIVE) Urine Methadone Screen (NEGATIVE) Ur Barbiturates Screen (NEGATIVE) Ur Phencyclidine Scrn (NEGATIVE) Ur Amphetamine Screen (NEGATIVE) U Methamphetamines Scrn (NEGATIVE) U Benzodiazepines Scrn (NEGATIVE) U Cocaine Metab Screen (NEGATIVE) U Marijuana (THC) Screen (NEGATIVE) 04/17/19 04/17/19 04/17/19 Range/Units 02:56 04:11 04:55 WBC (4.0-11.0) K/uL RBC (4.50-5.90) M/uL Hgb (13.0-17.0) g/dL Hct (38.0-50.0) % MCV (80.0-98.0) fL MCH (27.0-32.0) pg MCHC (31.0-37.0) g/dL RDW Std Deviation (28.0-62.0) fl RDW Coeff of Dania (11.0-15.0) % Plt Count (150-400) K/uL MPV (7.40-12.00) fL Nucleated RBC % /100WBC Nucleated RBCs # K/uL Sodium (136-148) mmol/L Potassium (3.5-5.1) mmol/L Chloride (98-107) mmol/L Carbon Dioxide (21.0-32.0) mmol/L BUN (7.0-18.0) mg/dL Creatinine (0.8-1.3) mg/dL Est Cr Clr Drug Dosing mL/min Estimated GFR (MDRD) ml/min Glucose (74-106) mg/dL POC Glucose 72 57 L 53 L (60-110) mg/dL Calcium (8.5-10.1) mg/dL Urine Color Urine Appearance Urine pH (5.0-8.0) Ur Specific [place] (1.001-1.035) Urine Protein (NEGATIVE) mg/dL Urine Glucose (UA) (NEGATIVE) mg/dL Urine Ketones (NEGATIVE) mg/dL Urine Occult Blood (NEGATIVE) Urine Nitrite (NEGATIVE) Urine Bilirubin (NEGATIVE) Urine Urobilinogen (<2.0) EU/dL Ur Leukocyte Esterase (NEGATIVE) Urine RBC (0-2/HPF) Urine WBC (0-5/HPF) Ur Epithelial Cells (NONE-FEW) Urine Bacteria (NEGATIVE) Urine Opiates Screen (NEGATIVE) Ur Oxycodone Screen (NEGATIVE) Urine Methadone Screen (NEGATIVE) Ur Barbiturates Screen (NEGATIVE) Ur Phencyclidine Scrn (NEGATIVE) Ur Amphetamine Screen (NEGATIVE) U Methamphetamines Scrn (NEGATIVE) U Benzodiazepines Scrn (NEGATIVE) U Cocaine Metab Screen (NEGATIVE) U Marijuana (THC) Screen (NEGATIVE) 04/17/19 04/17/19 04/17/19 Range/Units 05:54 05:54 06:18 WBC 11.80 H (4.0-11.0) K/uL RBC 4.51 (4.50-5.90) M/uL Hgb 9.9 L (13.0-17.0) g/dL Hct 31.2 L (38.0-50.0) % MCV 69.2 L (80.0-98.0) fL MCH 22.0 L (27.0-32.0) pg MCHC 31.7 (31.0-37.0) g/dL RDW Std Deviation 44.4 (28.0-62.0) fl RDW Coeff of Dania 18 H (11.0-15.0) % Plt Count 312 (150-400) K/uL MPV 9.70 (7.40-12.00) fL Nucleated RBC % 0.0 /100WBC Nucleated RBCs # 0 K/uL Sodium 140 (136-148) mmol/L Potassium 3.7 (3.5-5.1) mmol/L Chloride 108 H (98-107) mmol/L Carbon Dioxide 25.3 (21.0-32.0) mmol/L BUN 31 H (7.0-18.0) mg/dL Creatinine 2.0 H (0.8-1.3) mg/dL Est Cr Clr Drug Dosing 53.03 mL/min Estimated GFR (MDRD) 47.2 ml/min Glucose 87 (74-106) mg/dL POC Glucose 66 (60-110) mg/dL Calcium 8.5 (8.5-10.1) mg/dL Urine Color Urine Appearance Urine pH (5.0-8.0) Ur Specific H[place] (1.001-1.035) Urine Protein (NEGATIVE) mg/dL Urine Glucose (UA) (NEGATIVE) mg/dL Urine Ketones (NEGATIVE) mg/dL Urine Occult Blood (NEGATIVE) Urine Nitrite (NEGATIVE) Urine Bilirubin (NEGATIVE) Urine Urobilinogen (<2.0) EU/dL Ur Leukocyte Esterase (NEGATIVE) Urine RBC (0-2/HPF) Urine WBC (0-5/HPF) Ur Epithelial Cells (NONE-FEW) Urine Bacteria (NEGATIVE) Urine Opiates Screen (NEGATIVE) Ur Oxycodone Screen (NEGATIVE) Urine Methadone Screen (NEGATIVE) Ur Barbiturates Screen (NEGATIVE) Ur Phencyclidine Scrn (NEGATIVE) Ur Amphetamine Screen (NEGATIVE) U Methamphetamines Scrn (NEGATIVE) U Benzodiazepines Scrn (NEGATIVE) U Cocaine Metab Screen (NEGATIVE) U Marijuana (THC) Screen (NEGATIVE) 04/17/19 04/17/19 Range/Units 07:38 08:44 WBC (4.0-11.0) K/uL RBC (4.50-5.90) M/uL Hgb (13.0-17.0) g/dL Hct (38.0-50.0) % MCV (80.0-98.0) fL MCH (27.0-32.0) pg MCHC (31.0-37.0) g/dL RDW Std Deviation (28.0-62.0) fl RDW Coeff of Dania (11.0-15.0) % Plt Count (150-400) K/uL MPV (7.40-12.00) fL Nucleated RBC % /100WBC Nucleated RBCs # K/uL Sodium (136-148) mmol/L Potassium (3.5-5.1) mmol/L Chloride (98-107) mmol/L Carbon Dioxide (21.0-32.0) mmol/L BUN (7.0-18.0) mg/dL Creatinine (0.8-1.3) mg/dL Est Cr Clr Drug Dosing mL/min Estimated GFR (MDRD) ml/min Glucose (74-106) mg/dL POC Glucose 48 L 101 (60-110) mg/dL Calcium (8.5-10.1) mg/dL Urine Color Urine Appearance Urine pH (5.0-8.0) Ur Specific [place] (1.001-1.035) Urine Protein (NEGATIVE) mg/dL Urine Glucose (UA) (NEGATIVE) mg/dL Urine Ketones (NEGATIVE) mg/dL Urine Occult Blood (NEGATIVE) Urine Nitrite (NEGATIVE) Urine Bilirubin (NEGATIVE) Urine Urobilinogen (<2.0) EU/dL Ur Leukocyte Esterase (NEGATIVE) Urine RBC (0-2/HPF) Urine WBC (0-5/HPF) Ur Epithelial Cells (NONE-FEW) Urine Bacteria (NEGATIVE) Urine Opiates Screen (NEGATIVE) Ur Oxycodone Screen (NEGATIVE) Urine Methadone Screen (NEGATIVE) Ur Barbiturates Screen (NEGATIVE) Ur Phencyclidine Scrn (NEGATIVE) Ur Amphetamine Screen (NEGATIVE) U Methamphetamines Scrn (NEGATIVE) U Benzodiazepines Scrn (NEGATIVE) U Cocaine Metab Screen (NEGATIVE) U Marijuana (THC) Screen (NEGATIVE) Med Orders - Current: Current Medications Amlodipine Besylate (Norvasc) 10 mg PO BEDTIME [facility] Last Admin: 04/16/19 20:15 Dose: 10 mg Enoxaparin Sodium (Lovenox) 30 mg SUBCUT Q24H [facility] Last Admin: 04/16/19 12:41 Dose: 30 mg Hydralazine HCl (Apresoline) 25 mg PO TID [facility] Last Admin: 04/17/19 06:21 Dose: 25 mg Insulin Aspart (Novolog) 0 unit SUBCUT TIDAC [facility]; Protocol Last Admin: 04/17/19 08:01 Dose: Not Given Insulin Glargine (Lantus Solostar) 35 units SUBCUT BEDTIME [facility] Last Admin: 04/16/19 21:14 Dose: 35 units Ketorolac Tromethamine (Toradol) 30 mg IVPUSH Q6H PRN PRN Reason: Pain Last Admin: 04/16/19 23:56 Dose: 30 mg Lorazepam (Ativan) 1 mg IVPUSH Q8H PRN PRN Reason: Anxiety Last Admin: 04/17/19 03:16 Dose: 1 mg Metoclopramide HCl (Reglan) 10 mg IVPUSH Q4H PRN PRN Reason: Nausea Ondansetron HCl (Zofran Odt) 4 mg PO Q4H PRN PRN Reason: nausea, able to take PO Ondansetron HCl (Zofran) 4 mg IVPUSH Q8H PRN PRN Reason: Nausea Last Admin: 04/17/19 07:52 Dose: 4 mg Pantoprazole Sodium (Protonix) 40 mg PO BID [facility] Last Admin: 04/17/19 09:23 Dose: 40 mg Discontinued Medications Acetaminophen (Tylenol) 650 mg PO NOW ONE Stop: 04/16/19 08:13 Last Admin: 04/16/19 08:25 Dose: Not Given Dextrose/Water (Dextrose 50% In Water) 50 ml IVPUSH ONETIME ONE Stop: 04/17/19 07:44 Last Admin: 04/17/19 07:52 Dose: 50 ml Diphenhydramine HCl (Benadryl) 50 mg IVPUSH ONETIME ONE Stop: 04/16/19 07:31 Last Admin: 04/16/19 07:34 Dose: 50 mg Enalapril Maleate (Vasotec) 40 mg PO BEDTIME [facility] Enoxaparin Sodium (Lovenox) 40 mg SUBCUT Q24H [facility] Last Admin: 04/16/19 22:12 Dose: Not Given Hydralazine HCl (Apresoline) 10 mg IVPUSH ONETIME ONE Stop: 04/16/19 03:12 Last Admin: 04/16/19 03:27 Dose: 10 mg Hydralazine HCl (Apresoline) 10 mg IVPUSH ONETIME ONE Stop: 04/16/19 06:08 Last Admin: 04/16/19 06:13 Dose: 10 mg Sodium Chloride (Normal Saline) 1,000 mls @ 999 mls/hr IV .Bolus ONE Stop: 04/16/19 04:10 Last Admin: 04/16/19 03:24 Dose: 999 mls/hr Sodium Chloride (Normal Saline) 1,000 mls @ 999 mls/hr IV .Bolus ONE Stop: 04/16/19 06:34 Last Admin: 04/16/19 05:47 Dose: 999 mls/hr Sodium Chloride (Normal Saline) 1,000 mls @ 125 mls/hr IV ASDIRECTED MICHAEL Stop: 04/16/19 20:14 Last Admin: 04/16/19 12:31 Dose: 125 mls/hr Insulin Human Regular (Novolin R) 20 unit IVPUSH ONETIME ONE; Protocol Stop: 04/16/19 03:58 Last Admin: 04/16/19 04:05 Dose: 20 units Insulin Human Regular (Novolin R) 10 unit SUBCUT ONETIME ONE; Protocol Stop: 04/16/19 04:00 Last Admin: 04/16/19 04:05 Dose: 10 units Ketorolac Tromethamine (Toradol) 30 mg IM Q6H PRN PRN Reason: Pain Labetalol HCl (Normodyne) 0 mg IVPUSH ONETIME ONE; Protocol Stop: 04/16/19 18:40 Lorazepam (Ativan) 2 mg IVPUSH ONETIME ONE Stop: 04/16/19 09:00 Last Admin: 04/16/19 09:07 Dose: 2 mg Metoclopramide HCl (Reglan) 10 mg IV ONETIME ONE Stop: 04/16/19 07:31 Last Admin: 04/16/19 07:34 Dose: 10 mg Metoclopramide HCl (Reglan) 5 mg PO TIDAC [facility] Last Admin: 04/16/19 17:35 Dose: 5 mg Metoclopramide HCl (Reglan) 10 mg IVPUSH Q6H PRN PRN Reason: Nausea Last Admin: 04/16/19 14:49 Dose: 10 mg Ondansetron HCl (Zofran) 4 mg IVPUSH ONETIME ONE Stop: 04/16/19 03:11 Last Admin: 04/16/19 03:25 Dose: 4 mg Ondansetron HCl (Zofran) 4 mg IVPUSH Q4H PRN PRN Reason: Nausea - Exam General: Reports: Alert, Oriented, Cooperative, No Acute Distress Lungs: Reports: Clear to Auscultation, Normal Respiratory Effort Cardiovascular: Reports: Regular Rate, Regular Rhythm GI/Abdominal Exam: Normal Bowel Sounds, Soft, No Distention, Other (mild tenderness to palpation in epigastric region) <Sanjay Valdes - Last Filed: 04/18/19 08:41> Discharge Summary - Hospital Course Free Text/Narrative:: Patient discharged on 04/18/19. See DC summary from 04/17/19. At time of discharge, patient was feeling better. Nausea and vomiting resolved. He was instructed to continue his insulin regimen at home. In addition, continue taking Reglan for his gastroparesis. - Discharge Data Discharge Date: 04/18/19 - Patient Instructions Diet: Drink 8-10+ Glasses/Day - Patient Data Vitals - Most Recent: Last Vital Signs Temp 37.0 C 04/18/19 07:57 Pulse 102 H 04/18/19 07:57 Resp 18 04/18/19 07:57 BP 164/109 H 04/18/19 07:57 Pulse Ox 98 04/18/19 07:57 I&O - Last 24 hours: Intake & Output 04/17/19 04/18/19 04/18/19 22:59 06:59 14:59 Intake Total 480 800 Output Total 400 Balance 80 800 Lab Results - Last 24 hrs: Laboratory Results - last 24 hr 04/17/19 04/17/19 04/17/19 Range/Units 08:44 11:32 12:19 WBC (4.0-11.0) K/uL RBC (4.50-5.90) M/uL Hgb (13.0-17.0) g/dL Hct (38.0-50.0) % MCV (80.0-98.0) fL MCH (27.0-32.0) pg MCHC (31.0-37.0) g/dL RDW Std Deviation (28.0-62.0) fl RDW Coeff of Dania (11.0-15.0) % Plt Count (150-400) K/uL MPV (7.40-12.00) fL Nucleated RBC % /100WBC Nucleated RBCs # K/uL Sodium (136-148) mmol/L Potassium (3.5-5.1) mmol/L Chloride (98-107) mmol/L Carbon Dioxide (21.0-32.0) mmol/L BUN (7.0-18.0) mg/dL Creatinine (0.8-1.3) mg/dL Est Cr Clr Drug Dosing mL/min Estimated GFR (MDRD) ml/min Glucose (74-106) mg/dL POC Glucose 101 38 L 137 H (60-110) mg/dL Calcium (8.5-10.1) mg/dL 04/17/19 04/17/19 04/17/19 Range/Units 17:07 20:36 23:48 WBC (4.0-11.0) K/uL RBC (4.50-5.90) M/uL Hgb (13.0-17.0) g/dL Hct (38.0-50.0) % MCV (80.0-98.0) fL MCH (27.0-32.0) pg MCHC (31.0-37.0) g/dL RDW Std Deviation (28.0-62.0) fl RDW Coeff of Dania (11.0-15.0) % Plt Count (150-400) K/uL MPV (7.40-12.00) fL Nucleated RBC % /100WBC Nucleated RBCs # K/uL Sodium (136-148) mmol/L Potassium (3.5-5.1) mmol/L Chloride (98-107) mmol/L Carbon Dioxide (21.0-32.0) mmol/L BUN (7.0-18.0) mg/dL Creatinine (0.8-1.3) mg/dL Est Cr Clr Drug Dosing mL/min Estimated GFR (MDRD) ml/min Glucose (74-106) mg/dL POC Glucose 90 157 H 115 H (60-110) mg/dL Calcium (8.5-10.1) mg/dL 04/18/19 04/18/19 04/18/19 Range/Units 03:21 04:21 06:06 WBC 8.47 (4.0-11.0) K/uL RBC 5.14 (4.50-5.90) M/uL Hgb 11.3 L (13.0-17.0) g/dL Hct 35.8 L (38.0-50.0) % MCV 69.6 L (80.0-98.0) fL MCH 22.0 L (27.0-32.0) pg MCHC 31.6 (31.0-37.0) g/dL RDW Std Deviation 44.3 (28.0-62.0) fl RDW Coeff of Dania 18 H (11.0-15.0) % Plt Count 332 (150-400) K/uL MPV 10.30 (7.40-12.00) fL Nucleated RBC % 0.0 /100WBC Nucleated RBCs # 0 K/uL Sodium (136-148) mmol/L Potassium (3.5-5.1) mmol/L Chloride (98-107) mmol/L Carbon Dioxide (21.0-32.0) mmol/L BUN (7.0-18.0) mg/dL Creatinine (0.8-1.3) mg/dL Est Cr Clr Drug Dosing mL/min Estimated GFR (MDRD) ml/min Glucose (74-106) mg/dL POC Glucose 50 L 91 (60-110) mg/dL Calcium (8.5-10.1) mg/dL 04/18/19 04/18/19 04/18/19 Range/Units 06:06 06:09 08:32 WBC (4.0-11.0) K/uL RBC (4.50-5.90) M/uL Hgb (13.0-17.0) g/dL Hct (38.0-50.0) % MCV (80.0-98.0) fL MCH (27.0-32.0) pg MCHC (31.0-37.0) g/dL RDW Std Deviation (28.0-62.0) fl RDW Coeff of Dania (11.0-15.0) % Plt Count (150-400) K/uL MPV (7.40-12.00) fL Nucleated RBC % /100WBC Nucleated RBCs # K/uL Sodium 141 (136-148) mmol/L Potassium 3.7 (3.5-5.1) mmol/L Chloride 106 (98-107) mmol/L Carbon Dioxide 26.1 (21.0-32.0) mmol/L BUN 18 (7.0-18.0) mg/dL Creatinine 2.0 H (0.8-1.3) mg/dL Est Cr Clr Drug Dosing 52.53 mL/min Estimated GFR (MDRD) 46.9 ml/min Glucose 204 H (74-106) mg/dL POC Glucose 202 H 235 H (60-110) mg/dL Calcium 8.6 (8.5-10.1) mg/dL Med Orders - Current: Current Medications Amlodipine Besylate (Norvasc) 10 mg PO BEDTIME [facility] Last Admin: 04/17/19 20:49 Dose: 10 mg Enoxaparin Sodium (Lovenox) 30 mg SUBCUT Q24H [facility] Last Admin: 04/17/19 11:46 Dose: 30 mg Hydralazine HCl (Apresoline) 25 mg PO TID [facility] Last Admin: 04/18/19 06:17 Dose: 25 mg Insulin Aspart (Novolog) 0 unit SUBCUT TIDAC [facility]; Protocol Last Admin: 04/17/19 17:31 Dose: Not Given Insulin Glargine (Lantus Solostar) 35 units SUBCUT BEDTIME [facility] Last Admin: 04/17/19 20:51 Dose: 35 units Ketorolac Tromethamine (Toradol) 30 mg IVPUSH Q6H PRN PRN Reason: Pain Last Admin: 04/17/19 21:14 Dose: 30 mg Lorazepam (Ativan) 1 mg IVPUSH Q8H PRN PRN Reason: Anxiety Last Admin: 04/18/19 04:30 Dose: 1 mg Metoclopramide HCl (Reglan) 10 mg IVPUSH Q4H PRN PRN Reason: Nausea Last Admin: 04/17/19 21:17 Dose: 10 mg Ondansetron HCl (Zofran Odt) 4 mg PO Q4H PRN PRN Reason: nausea, able to take PO Ondansetron HCl (Zofran) 4 mg IVPUSH Q8H PRN PRN Reason: Nausea Last Admin: 04/17/19 07:52 Dose: 4 mg Pantoprazole Sodium (Protonix) 40 mg PO BID [facility] Last Admin: 04/17/19 20:49 Dose: 40 mg Discontinued Medications Acetaminophen (Tylenol) 650 mg PO NOW ONE Stop: 04/16/19 08:13 Last Admin: 04/16/19 08:25 Dose: Not Given Dextrose/Water (Dextrose 50% In Water) 50 ml IVPUSH ONETIME ONE Stop: 04/17/19 07:44 Last Admin: 04/17/19 07:52 Dose: 50 ml Dextrose/Water (Dextrose 50% In Water) 50 ml IVPUSH ONETIME ONE Stop: 04/17/19 11:36 Last Admin: 04/17/19 11:46 Dose: 50 ml Diphenhydramine HCl (Benadryl) 50 mg IVPUSH ONETIME ONE Stop: 04/16/19 07:31 Last Admin: 04/16/19 07:34 Dose: 50 mg Enalapril Maleate (Vasotec) 40 mg PO BEDTIME MICHAEL Enoxaparin Sodium (Lovenox) 40 mg SUBCUT Q24H [facility] Last Admin: 04/16/19 22:12 Dose: Not Given Hydralazine HCl (Apresoline) 10 mg IVPUSH ONETIME ONE Stop: 04/16/19 03:12 Last Admin: 04/16/19 03:27 Dose: 10 mg Hydralazine HCl (Apresoline) 10 mg IVPUSH ONETIME ONE Stop: 04/16/19 06:08 Last Admin: 04/16/19 06:13 Dose: 10 mg Sodium Chloride (Normal Saline) 1,000 mls @ 999 mls/hr IV .Bolus ONE Stop: 04/16/19 04:10 Last Admin: 04/16/19 03:24 Dose: 999 mls/hr Sodium Chloride (Normal Saline) 1,000 mls @ 999 mls/hr IV .Bolus ONE Stop: 04/16/19 06:34 Last Admin: 04/16/19 05:47 Dose: 999 mls/hr Sodium Chloride (Normal Saline) 1,000 mls @ 125 mls/hr IV ASDIRECTED MICHAEL Stop: 04/16/19 20:14 Last Admin: 04/16/19 12:31 Dose: 125 mls/hr Insulin Human Regular (Novolin R) 20 unit IVPUSH ONETIME ONE; Protocol Stop: 04/16/19 03:58 Last Admin: 04/16/19 04:05 Dose: 20 units Insulin Human Regular (Novolin R) 10 unit SUBCUT ONETIME ONE; Protocol Stop: 04/16/19 04:00 Last Admin: 04/16/19 04:05 Dose: 10 units Ketorolac Tromethamine (Toradol) 30 mg IM Q6H PRN PRN Reason: Pain Labetalol HCl (Normodyne) 0 mg IVPUSH ONETIME ONE; Protocol Stop: 04/16/19 18:40 Last Admin: 04/17/19 19:38 Dose: Not Given Labetalol HCl (Normodyne) 10 mg IVPUSH STAT ONE; Protocol Stop: 04/17/19 18:41 Last Admin: 04/17/19 19:25 Dose: 10 mg Lorazepam (Ativan) 2 mg IVPUSH ONETIME ONE Stop: 04/16/19 09:00 Last Admin: 04/16/19 09:07 Dose: 2 mg Metoclopramide HCl (Reglan) 10 mg IV ONETIME ONE Stop: 04/16/19 07:31 Last Admin: 04/16/19 07:34 Dose: 10 mg Metoclopramide HCl (Reglan) 5 mg PO TIDAC MICHAEL Last Admin: 04/16/19 17:35 Dose: 5 mg Metoclopramide HCl (Reglan) 10 mg IVPUSH Q6H PRN PRN Reason: Nausea Last Admin: 04/16/19 14:49 Dose: 10 mg Ondansetron HCl (Zofran) 4 mg IVPUSH ONETIME ONE Stop: 04/16/19 03:11 Last Admin: 04/16/19 03:25 Dose: 4 mg Ondansetron HCl (Zofran) 4 mg IVPUSH Q4H PRN PRN Reason: Nausea
[2019-04-17] MEDS: Enoxaparin 40 MG/0.4 ML Syringe SUBCUT SCH (11:46)
[2019-04-17] MEDS: Ketorolac 30 MG/ML SDV IVPUSH PRN ×3 (12:03→21:14)
[2019-04-17] MEDS: Metoclopramide 10 MG/2 ML SDV IVPUSH PRN ×2 (16:44→21:17)
[2019-04-17] MEDS ORDERED: Labetalol 100 MG/20 ML MDV IVPUSH ONE (18:40)
--- NOTE | 2019-04-17 19:21 | PCM.PN ---
- General Info Date of Service: 04/17/19 Subjective Update: Patient is a 33-year-old male was admitted for nausea, vomiting and hyperglycemia. He has a history of right below the knee amputation, diabetes mellitus type 2, hypertension, gastroparesis, and stroke. Patient did have some low glucose levels overnight approximately in the 50 to 60s. He was given orange juice and D50, which improved his glucose levels. At bedside this morning , patient complaining of nausea and vomiting. - Patient Data Vitals - Most Recent: Last Vital Signs Temp 98.6 F 04/17/19 16:00 Pulse 98 04/17/19 16:00 Resp 20 04/17/19 16:00 BP 199/109 H 04/17/19 18:00 Pulse Ox 97 04/17/19 16:00 Weight - Most Recent: 175 lb I&O - Last 24 Hours: Intake & Output 04/17/19 04/17/19 04/17/19 06:59 14:59 22:59 Intake Total 1160 480 Output Total 720 400 Balance 440 80 Lab Results Last 24 Hours: Laboratory Results - last 24 hr 04/16/19 04/16/19 04/16/19 Range/Units 19:15 19:15 19:43 WBC (4.0-11.0) K/uL RBC (4.50-5.90) M/uL Hgb (13.0-17.0) g/dL Hct (38.0-50.0) % MCV (80.0-98.0) fL MCH (27.0-32.0) pg MCHC (31.0-37.0) g/dL RDW Std Deviation (28.0-62.0) fl RDW Coeff of Dania (11.0-15.0) % Plt Count (150-400) K/uL MPV (7.40-12.00) fL Nucleated RBC % /100WBC Nucleated RBCs # K/uL Sodium (136-148) mmol/L Potassium (3.5-5.1) mmol/L Chloride (98-107) mmol/L Carbon Dioxide (21.0-32.0) mmol/L BUN (7.0-18.0) mg/dL Creatinine (0.8-1.3) mg/dL Est Cr Clr Drug Dosing mL/min Estimated GFR (MDRD) ml/min Glucose (74-106) mg/dL POC Glucose 408 H (60-110) mg/dL Calcium (8.5-10.1) mg/dL Urine Color YELLOW Urine Appearance CLEAR Urine pH 6.0 (5.0-8.0) Ur Specific [place] 1.025 (1.001-1.035) Urine Protein >=300 H (NEGATIVE) mg/dL Urine Glucose (UA) >=1000 (NEGATIVE) mg/dL Urine Ketones 40 H (NEGATIVE) mg/dL Urine Occult Blood SMALL H (NEGATIVE) Urine Nitrite NEGATIVE (NEGATIVE) Urine Bilirubin NEGATIVE (NEGATIVE) Urine Urobilinogen 0.2 (<2.0) EU/dL Ur Leukocyte Esterase NEGATIVE (NEGATIVE) Urine RBC 1-3 (0-2/HPF) Urine WBC 0-2 (0-5/HPF) Ur Epithelial Cells OCCASIONAL (NONE-FEW) Urine Bacteria RARE (NEGATIVE) Urine Opiates Screen NEGATIVE (NEGATIVE) Ur Oxycodone Screen NEGATIVE (NEGATIVE) Urine Methadone Screen NEGATIVE (NEGATIVE) Ur Barbiturates Screen NEGATIVE (NEGATIVE) Ur Phencyclidine Scrn NEGATIVE (NEGATIVE) Ur Amphetamine Screen NEGATIVE (NEGATIVE) U Methamphetamines Scrn NEGATIVE (NEGATIVE) U Benzodiazepines Scrn NEGATIVE (NEGATIVE) U Cocaine Metab Screen NEGATIVE (NEGATIVE) U Marijuana (THC) Screen POSITIVE (NEGATIVE) 04/16/19 04/16/19 04/17/19 Range/Units 21:52 23:38 00:46 WBC (4.0-11.0) K/uL RBC (4.50-5.90) M/uL Hgb (13.0-17.0) g/dL Hct (38.0-50.0) % MCV (80.0-98.0) fL MCH (27.0-32.0) pg MCHC (31.0-37.0) g/dL RDW Std Deviation (28.0-62.0) fl RDW Coeff of Dania (11.0-15.0) % Plt Count (150-400) K/uL MPV (7.40-12.00) fL Nucleated RBC % /100WBC Nucleated RBCs # K/uL Sodium (136-148) mmol/L Potassium (3.5-5.1) mmol/L Chloride (98-107) mmol/L Carbon Dioxide (21.0-32.0) mmol/L BUN (7.0-18.0) mg/dL Creatinine (0.8-1.3) mg/dL Est Cr Clr Drug Dosing mL/min Estimated GFR (MDRD) ml/min Glucose (74-106) mg/dL POC Glucose 239 H 133 H 100 (60-110) mg/dL Calcium (8.5-10.1) mg/dL Urine Color Urine Appearance Urine pH (5.0-8.0) Ur Specific [place] (1.001-1.035) Urine Protein (NEGATIVE) mg/dL Urine Glucose (UA) (NEGATIVE) mg/dL Urine Ketones (NEGATIVE) mg/dL Urine Occult Blood (NEGATIVE) Urine Nitrite (NEGATIVE) Urine Bilirubin (NEGATIVE) Urine Urobilinogen (<2.0) EU/dL Ur Leukocyte Esterase (NEGATIVE) Urine RBC (0-2/HPF) Urine WBC (0-5/HPF) Ur Epithelial Cells (NONE-FEW) Urine Bacteria (NEGATIVE) Urine Opiates Screen (NEGATIVE) Ur Oxycodone Screen (NEGATIVE) Urine Methadone Screen (NEGATIVE) Ur Barbiturates Screen (NEGATIVE) Ur Phencyclidine Scrn (NEGATIVE) Ur Amphetamine Screen (NEGATIVE) U Methamphetamines Scrn (NEGATIVE) U Benzodiazepines Scrn (NEGATIVE) U Cocaine Metab Screen (NEGATIVE) U Marijuana (THC) Screen (NEGATIVE) 04/17/19 04/17/19 04/17/19 Range/Units 01:49 02:56 04:11 WBC (4.0-11.0) K/uL RBC (4.50-5.90) M/uL Hgb (13.0-17.0) g/dL Hct (38.0-50.0) % MCV (80.0-98.0) fL MCH (27.0-32.0) pg MCHC (31.0-37.0) g/dL RDW Std Deviation (28.0-62.0) fl RDW Coeff of Dania (11.0-15.0) % Plt Count (150-400) K/uL MPV (7.40-12.00) fL Nucleated RBC % /100WBC Nucleated RBCs # K/uL Sodium (136-148) mmol/L Potassium (3.5-5.1) mmol/L Chloride (98-107) mmol/L Carbon Dioxide (21.0-32.0) mmol/L BUN (7.0-18.0) mg/dL Creatinine (0.8-1.3) mg/dL Est Cr Clr Drug Dosing mL/min Estimated GFR (MDRD) ml/min Glucose (74-106) mg/dL POC Glucose 56 L 72 57 L (60-110) mg/dL Calcium (8.5-10.1) mg/dL Urine Color Urine Appearance Urine pH (5.0-8.0) Ur Specific [place] (1.001-1.035) Urine Protein (NEGATIVE) mg/dL Urine Glucose (UA) (NEGATIVE) mg/dL Urine Ketones (NEGATIVE) mg/dL Urine Occult Blood (NEGATIVE) Urine Nitrite (NEGATIVE) Urine Bilirubin (NEGATIVE) Urine Urobilinogen (<2.0) EU/dL Ur Leukocyte Esterase (NEGATIVE) Urine RBC (0-2/HPF) Urine WBC (0-5/HPF) Ur Epithelial Cells (NONE-FEW) Urine Bacteria (NEGATIVE) Urine Opiates Screen (NEGATIVE) Ur Oxycodone Screen (NEGATIVE) Urine Methadone Screen (NEGATIVE) Ur Barbiturates Screen (NEGATIVE) Ur Phencyclidine Scrn (NEGATIVE) Ur Amphetamine Screen (NEGATIVE) U Methamphetamines Scrn (NEGATIVE) U Benzodiazepines Scrn (NEGATIVE) U Cocaine Metab Screen (NEGATIVE) U Marijuana (THC) Screen (NEGATIVE) 04/17/19 04/17/19 04/17/19 Range/Units 04:55 05:54 05:54 WBC 11.80 H (4.0-11.0) K/uL RBC 4.51 (4.50-5.90) M/uL Hgb 9.9 L (13.0-17.0) g/dL Hct 31.2 L (38.0-50.0) % MCV 69.2 L (80.0-98.0) fL MCH 22.0 L (27.0-32.0) pg MCHC 31.7 (31.0-37.0) g/dL RDW Std Deviation 44.4 (28.0-62.0) fl RDW Coeff of Dania 18 H (11.0-15.0) % Plt Count 312 (150-400) K/uL MPV 9.70 (7.40-12.00) fL Nucleated RBC % 0.0 /100WBC Nucleated RBCs # 0 K/uL Sodium 140 (136-148) mmol/L Potassium 3.7 (3.5-5.1) mmol/L Chloride 108 H (98-107) mmol/L Carbon Dioxide 25.3 (21.0-32.0) mmol/L BUN 31 H (7.0-18.0) mg/dL Creatinine 2.0 H (0.8-1.3) mg/dL Est Cr Clr Drug Dosing 53.03 mL/min Estimated GFR (MDRD) 47.2 ml/min Glucose 87 (74-106) mg/dL POC Glucose 53 L (60-110) mg/dL Calcium 8.5 (8.5-10.1) mg/dL Urine Color Urine Appearance Urine pH (5.0-8.0) Ur Specific [place] (1.001-1.035) Urine Protein (NEGATIVE) mg/dL Urine Glucose (UA) (NEGATIVE) mg/dL Urine Ketones (NEGATIVE) mg/dL Urine Occult Blood (NEGATIVE) Urine Nitrite (NEGATIVE) Urine Bilirubin (NEGATIVE) Urine Urobilinogen (<2.0) EU/dL Ur Leukocyte Esterase (NEGATIVE) Urine RBC (0-2/HPF) Urine WBC (0-5/HPF) Ur Epithelial Cells (NONE-FEW) Urine Bacteria (NEGATIVE) Urine Opiates Screen (NEGATIVE) Ur Oxycodone Screen (NEGATIVE) Urine Methadone Screen (NEGATIVE) Ur Barbiturates Screen (NEGATIVE) Ur Phencyclidine Scrn (NEGATIVE) Ur Amphetamine Screen (NEGATIVE) U Methamphetamines Scrn (NEGATIVE) U Benzodiazepines Scrn (NEGATIVE) U Cocaine Metab Screen (NEGATIVE) U Marijuana (THC) Screen (NEGATIVE) 04/17/19 04/17/19 04/17/19 Range/Units 06:18 07:38 08:44 WBC (4.0-11.0) K/uL RBC (4.50-5.90) M/uL Hgb (13.0-17.0) g/dL Hct (38.0-50.0) % MCV (80.0-98.0) fL MCH (27.0-32.0) pg MCHC (31.0-37.0) g/dL RDW Std Deviation (28.0-62.0) fl RDW Coeff of Dania (11.0-15.0) % Plt Count (150-400) K/uL MPV (7.40-12.00) fL Nucleated RBC % /100WBC Nucleated RBCs # K/uL Sodium (136-148) mmol/L Potassium (3.5-5.1) mmol/L Chloride (98-107) mmol/L Carbon Dioxide (21.0-32.0) mmol/L BUN (7.0-18.0) mg/dL Creatinine (0.8-1.3) mg/dL Est Cr Clr Drug Dosing mL/min Estimated GFR (MDRD) ml/min Glucose (74-106) mg/dL POC Glucose 66 48 L 101 (60-110) mg/dL Calcium (8.5-10.1) mg/dL Urine Color Urine Appearance Urine pH (5.0-8.0) Ur Specific [place] (1.001-1.035) Urine Protein (NEGATIVE) mg/dL Urine Glucose (UA) (NEGATIVE) mg/dL Urine Ketones (NEGATIVE) mg/dL Urine Occult Blood (NEGATIVE) Urine Nitrite (NEGATIVE) Urine Bilirubin (NEGATIVE) Urine Urobilinogen (<2.0) EU/dL Ur Leukocyte Esterase (NEGATIVE) Urine RBC (0-2/HPF) Urine WBC (0-5/HPF) Ur Epithelial Cells (NONE-FEW) Urine Bacteria (NEGATIVE) Urine Opiates Screen (NEGATIVE) Ur Oxycodone Screen (NEGATIVE) Urine Methadone Screen (NEGATIVE) Ur Barbiturates Screen (NEGATIVE) Ur Phencyclidine Scrn (NEGATIVE) Ur Amphetamine Screen (NEGATIVE) U Methamphetamines Scrn (NEGATIVE) U Benzodiazepines Scrn (NEGATIVE) U Cocaine Metab Screen (NEGATIVE) U Marijuana (THC) Screen (NEGATIVE) 04/17/19 04/17/19 04/17/19 Range/Units 11:32 12:19 17:07 WBC (4.0-11.0) K/uL RBC (4.50-5.90) M/uL Hgb (13.0-17.0) g/dL Hct (38.0-50.0) % MCV (80.0-98.0) fL MCH (27.0-32.0) pg MCHC (31.0-37.0) g/dL RDW Std Deviation (28.0-62.0) fl RDW Coeff of Dania (11.0-15.0) % Plt Count (150-400) K/uL MPV (7.40-12.00) fL Nucleated RBC % /100WBC Nucleated RBCs # K/uL Sodium (136-148) mmol/L Potassium (3.5-5.1) mmol/L Chloride (98-107) mmol/L Carbon Dioxide (21.0-32.0) mmol/L BUN (7.0-18.0) mg/dL Creatinine (0.8-1.3) mg/dL Est Cr Clr Drug Dosing mL/min Estimated GFR (MDRD) ml/min Glucose (74-106) mg/dL POC Glucose 38 L 137 H 90 (60-110) mg/dL Calcium (8.5-10.1) mg/dL Urine Color Urine Appearance Urine pH (5.0-8.0) Ur Specific [place] (1.001-1.035) Urine Protein (NEGATIVE) mg/dL Urine Glucose (UA) (NEGATIVE) mg/dL Urine Ketones (NEGATIVE) mg/dL Urine Occult Blood (NEGATIVE) Urine Nitrite (NEGATIVE) Urine Bilirubin (NEGATIVE) Urine Urobilinogen (<2.0) EU/dL Ur Leukocyte Esterase (NEGATIVE) Urine RBC (0-2/HPF) Urine WBC (0-5/HPF) Ur Epithelial Cells (NONE-FEW) Urine Bacteria (NEGATIVE) Urine Opiates Screen (NEGATIVE) Ur Oxycodone Screen (NEGATIVE) Urine Methadone Screen (NEGATIVE) Ur Barbiturates Screen (NEGATIVE) Ur Phencyclidine Scrn (NEGATIVE) Ur Amphetamine Screen (NEGATIVE) U Methamphetamines Scrn (NEGATIVE) U Benzodiazepines Scrn (NEGATIVE) U Cocaine Metab Screen (NEGATIVE) U Marijuana (THC) Screen (NEGATIVE) Med Orders - Current: Current Medications Amlodipine Besylate (Norvasc) 10 mg PO BEDTIME [facility] Last Admin: 04/16/19 20:15 Dose: 10 mg Enoxaparin Sodium (Lovenox) 30 mg SUBCUT Q24H [facility] Last Admin: 04/17/19 11:46 Dose: 30 mg Hydralazine HCl (Apresoline) 25 mg PO TID [facility] Last Admin: 04/17/19 13:04 Dose: 25 mg Insulin Aspart (Novolog) 0 unit SUBCUT TIDAC [facility]; Protocol Last Admin: 04/17/19 17:31 Dose: Not Given Insulin Glargine (Lantus Solostar) 35 units SUBCUT BEDTIME [facility] Last Admin: 04/16/19 21:14 Dose: 35 units Ketorolac Tromethamine (Toradol) 30 mg IVPUSH Q6H PRN PRN Reason: Pain Last Admin: 04/17/19 13:38 Dose: 30 mg Lorazepam (Ativan) 1 mg IVPUSH Q8H PRN PRN Reason: Anxiety Last Admin: 04/17/19 03:16 Dose: 1 mg Metoclopramide HCl (Reglan) 10 mg IVPUSH Q4H PRN PRN Reason: Nausea Last Admin: 04/17/19 16:44 Dose: 10 mg Ondansetron HCl (Zofran Odt) 4 mg PO Q4H PRN PRN Reason: nausea, able to take PO Ondansetron HCl (Zofran) 4 mg IVPUSH Q8H PRN PRN Reason: Nausea Last Admin: 04/17/19 07:52 Dose: 4 mg Pantoprazole Sodium (Protonix) 40 mg PO BID [facility] Last Admin: 04/17/19 09:23 Dose: 40 mg Discontinued Medications Acetaminophen (Tylenol) 650 mg PO NOW ONE Stop: 04/16/19 08:13 Last Admin: 04/16/19 08:25 Dose: Not Given Dextrose/Water (Dextrose 50% In Water) 50 ml IVPUSH ONETIME ONE Stop: 04/17/19 07:44 Last Admin: 04/17/19 07:52 Dose: 50 ml Dextrose/Water (Dextrose 50% In Water) 50 ml IVPUSH ONETIME ONE Stop: 04/17/19 11:36 Last Admin: 04/17/19 11:46 Dose: 50 ml Diphenhydramine HCl (Benadryl) 50 mg IVPUSH ONETIME ONE Stop: 04/16/19 07:31 Last Admin: 04/16/19 07:34 Dose: 50 mg Enalapril Maleate (Vasotec) 40 mg PO BEDTIME [facility] Enoxaparin Sodium (Lovenox) 40 mg SUBCUT Q24H [facility] Last Admin: 04/16/19 22:12 Dose: Not Given Hydralazine HCl (Apresoline) 10 mg IVPUSH ONETIME ONE Stop: 04/16/19 03:12 Last Admin: 04/16/19 03:27 Dose: 10 mg Hydralazine HCl (Apresoline) 10 mg IVPUSH ONETIME ONE Stop: 04/16/19 06:08 Last Admin: 04/16/19 06:13 Dose: 10 mg Sodium Chloride (Normal Saline) 1,000 mls @ 999 mls/hr IV .Bolus ONE Stop: 04/16/19 04:10 Last Admin: 04/16/19 03:24 Dose: 999 mls/hr Sodium Chloride (Normal Saline) 1,000 mls @ 999 mls/hr IV .Bolus ONE Stop: 04/16/19 06:34 Last Admin: 04/16/19 05:47 Dose: 999 mls/hr Sodium Chloride (Normal Saline) 1,000 mls @ 125 mls/hr IV ASDIRECTED MICHAEL Stop: 04/16/19 20:14 Last Admin: 04/16/19 12:31 Dose: 125 mls/hr Insulin Human Regular (Novolin R) 20 unit IVPUSH ONETIME ONE; Protocol Stop: 04/16/19 03:58 Last Admin: 04/16/19 04:05 Dose: 20 units Insulin Human Regular (Novolin R) 10 unit SUBCUT ONETIME ONE; Protocol Stop: 04/16/19 04:00 Last Admin: 04/16/19 04:05 Dose: 10 units Ketorolac Tromethamine (Toradol) 30 mg IM Q6H PRN PRN Reason: Pain Labetalol HCl (Normodyne) 0 mg IVPUSH ONETIME ONE; Protocol Stop: 04/16/19 18:40 Labetalol HCl (Normodyne) 10 mg IVPUSH STAT ONE; Protocol Stop: 04/17/19 18:41 Lorazepam (Ativan) 2 mg IVPUSH ONETIME ONE Stop: 04/16/19 09:00 Last Admin: 04/16/19 09:07 Dose: 2 mg Metoclopramide HCl (Reglan) 10 mg IV ONETIME ONE Stop: 04/16/19 07:31 Last Admin: 04/16/19 07:34 Dose: 10 mg Metoclopramide HCl (Reglan) 5 mg PO TIDAC [facility] Last Admin: 04/16/19 17:35 Dose: 5 mg Metoclopramide HCl (Reglan) 10 mg IVPUSH Q6H PRN PRN Reason: Nausea Last Admin: 04/16/19 14:49 Dose: 10 mg Ondansetron HCl (Zofran) 4 mg IVPUSH ONETIME ONE Stop: 04/16/19 03:11 Last Admin: 04/16/19 03:25 Dose: 4 mg Ondansetron HCl (Zofran) 4 mg IVPUSH Q4H PRN PRN Reason: Nausea - Exam General: Alert, Oriented, Cooperative, No Acute Distress Lungs: Clear to Auscultation, Normal Respiratory Effort Cardiovascular: Regular Rate, Regular Rhythm GI/Abdominal Exam: Normal Bowel Sounds, Soft, No Distention, Other (mild epigastric tenderness) - Problem List Review Problem List Initiated/Reviewed/Updated: Yes - My Orders Last 24 Hours: My Active Orders 04/17/19 09:28 Ready for Discharge [RC] PER UNIT ROUTINE - Plan Plan:: A: 1. Nausea and vomiting likely secondary to gastroparesis. 2. Hypoglycemia. 3. Hypertensive urgency. 4. Leukocytosis. 5. Acute on chronic kidney disease. 6. PMH: DM2, gastroparesis. P: 1. For nausea and vomiting, continue metoclopramide and Zofran. Patient continues to complain of nausea and vomiting throughout the day and states that he does not feel hungry. 2. For hypoglycemia, will continue to monitor glucose levels throughout the day. Patient's glucose levels noted to improve after drinking orange juice and receiving an amp of D50. 3. For hypertensive urgency, will monitor patient's blood pressure. He is on his home regimen of anti-hypertensive medications including: amlodipine 10 mg at bedtime, and hydralazine 25 mg TID. 4. For leukocytosis, will recheck with AM labs. 5. For acute on chronic kidney disease, encourage oral hydration. 6. For PMH, will continue with home medications.
[2019-04-17] MEDS: amLODIPine 5 MG Tab PO SCH (20:49)
[2019-04-17] MEDS: Insulin Glargine,Human Rec. Analog 100 Units/ML 3 ML Pen SUBCUT SCH (20:51)
[2019-04-18] MEDS: LORazepam 2 MG/ML SDV IVPUSH PRN (04:30)
[2019-04-18] MEDS: hydrALAZINE 25 MG Tab PO SCH (06:17)
[2019-04-18 06:43] LABS: CARBON DIOXIDE,CO2 26.1 mmol/L (21.0-32.0); POTASSIUM,K 3.7 mmol/L (3.5-5.1)
[2019-04-18 08:00] VITALS: BP 164/109; PULSE 102
[2019-04-18] MEDS: Insulin Aspart 100 Units/ML 3 ML Pen SUBCUT SCH (08:45)
[2019-04-18] MEDS: Pantoprazole 40 MG Tab.CR PO SCH (08:47)
== END 2019-04-18 09:42 | disposition home or self-care (01) ==
LOC: MW.ED 02:56 → MW.MS 10:26
PROVIDERS: ADMIT Internal Medicine; ATTEND Internal Medicine
DX: R11.2 Nausea with vomiting, unspecified (principal); K21.9 Gastro-esophageal reflux disease without esophagitis; K31.84 Gastroparesis; I12.9 Hypertensive chronic kidney disease with stage 1 through stage 4 chronic kidney disease, or unspecified chronic kidney disease; N18.9 Chronic kidney disease, unspecified; I16.0 Hypertensive urgency; E11.43 Type 2 diabetes mellitus with diabetic autonomic (poly)neuropathy; E11.21 Type 2 diabetes mellitus with diabetic nephropathy; E11.22 Type 2 diabetes mellitus with diabetic chronic kidney disease; E11.65 Type 2 diabetes mellitus with hyperglycemia; E11.42 Type 2 diabetes mellitus with diabetic polyneuropathy; D72.829 Elevated white blood cell count, unspecified; D64.9 Anemia, unspecified; Z86.73 Personal history of transient ischemic attack (TIA), and cerebral infarction without residual deficits; Z79.899 Other long term (current) drug therapy; Z79.4 Long term (current) use of insulin; Z91.013 Allergy to seafood; Z88.8 Allergy status to other drugs, medicaments and biological substances; Z88.0 Allergy status to penicillin; Z91.018 Allergy to other foods
CPT/HCPCS: 36415; 74022; 80048; 80053; 80305; 81001; 82803; 82962; 83690; 85025; 85027; 93005; 96361; 96372; 96374; 96375; 96376; 99285; A9270; G0378; J0360; J1200; J1650; J1815; J1885; J2060; J2405; J2765; J3490; J7040; J7060

== ENCOUNTER 2019-04-23 02:29 | Emergency (ER) | payer MEDICAID ==
--- NOTE | 2019-04-23 02:38 | EDM.PDOC ---
ED HPI GENERAL MEDICAL PROBLEM - General Chief Complaint: Gastrointestinal Problem Stated Complaint: GI Time Seen by Provider: 04/23/19 02:31 - History of Present Illness INITIAL COMMENTS - FREE TEXT/NARRATIVE: HISTORY AND PHYSICAL: History of present illness: The patient is a 34-year-old male with a history of gastroparesis diabetes GI bleeding right BKA stroke hypertension medical noncompliance who has multiple ER visits and admissions for poorly controlled hypertension and diabetes/ hyperglycemia and DKA as well as vomiting due to his gastroparesis. The patient has been seen times by this provider and frequently complains of upper abdominal pain along with his gastroparesis for which he frequently demands pain medications. The patient was just admitted here last week from April 16 to the for his hypertension vomiting and hyperglycemia. He is currently on Reglan on a regular basis to help with the gastroparesis as well as blood pressure medications. Patient also has a history of polysubstance abuse in the past. The patient has been seen by GI in the past and had scopes with his last scope at [facility] in [place]'s ago which revealed gastritis which was mild and had negative biopsies for H. pylori as well as a linear esophageal ulcer which was mild and nonbleeding. After that admission, after being transferred from here, to [facility] and [place] he was placed on Protonix . On my last visit with him last week all of his records from the most recent transfer and admission to [facility] were obtained and reviewed by me. This included the endoscopy report and the consultation from gastroenterology. This morning he presents via EMS saying that at 2:00 yesterday afternoon he started having nausea and vomiting and then the abdominal pain and he was unable to take any of his oral medications including his Reglan and his blood pressure meds. He says the pain is his usual pain in the upper abdomen that started after the vomiting and he does have a headache chest pain or shortness of breath. He's had no fevers or chills and he says he is not making much urine. He says that he has been afraid to take any sips of fluids or ice chips because it makes him vomit. The patient's presentation is typical of his usual visits and he says that there is nothing new or different about his symptoms from prior visits over the last few weeks. Review of systems: As per history of present illness and below otherwise all systems reviewed and negative. Past medical history: As per history of present illness and as reviewed below otherwise noncontributory. Surgical history: As per history of present illness and as reviewed below otherwise noncontributory. Social history: No reported history of drug or alcohol abuse. Family history: As per history of present illness and as reviewed below otherwise noncontributory. Physical exam: General: Well-developed well-nourished man who is nontoxic and vital signs are noted by me. He seems somewhat anxious and upset in the room but he can be redirected and he is cooperative. HEENT: Atraumatic, normocephalic, pupils reactive, negative for conjunctival pallor or scleral icterus, mucous membranes slightly tacky, throat clear, neck supple, nontender, trachea midline. Lungs: Clear to auscultation, breath sounds equal bilaterally, chest nontender. The wheezing or stridor Heart: S1S2, regular rhythm and slightly tachycardic rate on my evaluation but no overt murmurs Abdomen: Soft, nondistended, diffuse upper abdominal tenderness with exaggerated exam on my palpation but there is no guarding or involuntary rebound , bowel sounds are hypoactive Negative for masses or hepatosplenomegaly. Pelvis: Stable nontender. Genitourinary: Deferred. Rectal: Deferred. Extremities: Atraumatic, negative for cords or calf pain. The patient has a right BKA . Neurovascular unremarkable. Neuro: Awake, alert, oriented. Cranial nerves II through XII unremarkable. Cerebellum unremarkable. Motor and sensory unremarkable throughout. Exam nonfocal. Diagnostics: CBC CMP venous blood gas abdominal and chest x-rays UA and UDS were ordered but the patient will not produce a sample for us. Therapeutics: IV fluids Reglan Benadryl hydralazine Protonix insulin Patient is currently finishing out his IV fluids and his blood pressures come down to 174/93. We will be repeating his Accu-Chek after the insulin dose and he is currently laying in the cart in the prone position sleeping comfortably without any complaints or any vomiting since he has been here in the ED. I discussed with him that from his blood work he is not exhibiting any signs of acidosis with a normal anion gap of 11 and a venous pH of 7.45 and his initial blood sugar was only in the 300s which for him is not bad and will be improved once he is able to take his meds. I've given him some ice chips and advised him on how to start taking them and we'll continue to monitor his blood pressure and Accu-Chek and plan for discharge home pending any acute changes. The patient still has not given me a urine sample which is not unusual for his visits here to the ED. The patient has been sleeping the whole time he has been in the ED mostly in the prone position and he has not had any vomiting since he has been here. His blood pressure has been variable but has improved and his last Accu-Chek was 283 after IV fluids and insulin. At this point as he is not vomiting and he can take his home medications we will plan for discharge home. He has been given ice chips and sips of water several times in the ED and he has taken some of that without vomiting. Please note the patient still has not produced a urine sample for UA or UDS. It has been again rediscussed with the patient discharge home and he says that he is feeling better and is comfortable with that if we can discuss getting him. Impression: Vomiting and abdominal pain with history of gastroparesis, hypertension poorly controlled, improved Definitive disposition and diagnosis as appropriate pending reevaluation and review of above. Abdomen Pain Score (Numeric/FACES): 8 - Related Data Allergies Allergy/AdvReac Type Severity Reaction Status Date / Time shrimp Allergy Severe Swelling Verified 04/23/19 02:32 iodine Allergy Unknown Anaphylactic Verified 04/23/19 02:32 Shock Penicillins Allergy Unknown Anaphylactic Verified 04/23/19 02:32 Shock shellfish derived Allergy Anaphylactic Verified 04/23/19 02:32 Shock gluten Allergy Unknown Muscle Uncoded 04/23/19 02:32 Aches Home Meds: Home Meds Doxazosin [Cardura] 2 mg PO BEDTIME 09/25/17 [History] Enalapril [Vasotec] 40 mg PO BEDTIME 09/25/17 [History] Torsemide 20 mg PO DAILY 09/25/17 [History] amLODIPine Besylate [Amlodipine Besylate] 10 mg PO BEDTIME 09/25/17 [History] Ferrous Sulfate 324 mg PO DAILY 01/20/18 [History] hydrALAZINE [Apresoline] 25 mg PO TID 30 Days #90 tablet 01/29/18 [Rx] Insulin Glarg,Human.Rec.Analog [Lantus Solostar] 35 units SUBCUT BEDTIME [History] Insulin Aspart [NovoLOG] 0 unit SUBCUT ASDIRECTED PRN 05/23/18 [History] Spironolactone [Aldactone] 25 mg PO DAILY 12/14/18 [History] hydroCHLOROthiazide [Hydrochlorothiazide] 25 mg PO DAILY 12/14/18 [History] Aspirin [Halfprin] 81 mg PO DAILY #30 tab.ec 12/15/18 [Rx] atorvaSTATin [Lipitor] 80 mg PO BEDTIME #60 tablet 12/15/18 [Rx] Metoclopramide [Reglan] 5 mg PO TIDAC #90 tab 03/11/19 [Rx] Iron Sucrose Complex [Venofer] 200 mg IV Q2D #4 bag 04/05/19 [Rx] Pantoprazole Sodium [Protonix] 40 mg PO BID #60 tablet. 04/05/19 [Rx] Sucralfate [Carafate] 1 gm PO QIDACANDBED #120 ml 04/05/19 [Rx] Past Medical History - Past Health History Medical/Surgical History: Denies Medical/Surgical History HEENT History: Reports: Impaired Vision Other HEENT History: blind right eye Cardiovascular History: Reports: Hypertension Respiratory History: Reports: None Gastrointestinal History: Reports: Gastritis, GERD, Hiatal Hernia, Other (See Below) Other Gastrointestinal History: h/o gastric ulcers, h/o hiatal hernia; gastroparesis Genitourinary History: Reports: Chronic Renal Insuffiency, Diabetic Nephropathy Musculoskeletal History: Reports: Amputation Neurological History: Reports: Neuropathy, Peripheral Other Neuro History: stroke 3 months ago Psychiatric History: Reports: Anxiety Endocrine/Metabolic History: Reports: Diabetes, Type I Other Endocrine/Metabolic History: brittle diabetic. History of hyperkalemia and DKA Hematologic History: Reports: Anemia Immunologic History: Reports: None Oncologic (Cancer) History: Reports: None Dermatologic History: Reports: Other (See Below) Other Dermatologic History: diabetic foot ulcers - Infectious Disease History Infectious Disease History: Reports: Chicken Pox, MRSA Other Infectious Disease History: 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 - Past Surgical History Head Surgeries/Procedures: Reports: None Social & Family History - Family History Family Medical History: Noncontributory Cardiac: Reports: High Cholesterol, Hypertension OBGYN: Reports: Neurological: Reports: None - Caffeine Use Caffeine Use: Reports: Coffee, Energy Drinks, Soda, Tea Other Caffeine Use: daily - Living Situation & Occupation Living situation: Reports: Single Occupation: Employed (Currently unemployed.) ED ROS GENERAL - Review of Systems Review Of Systems: ROS reveals no pertinent complaints other than HPI. ED EXAM, GENERAL - Physical Exam Exam: See Below (See dictation) Course - Vital Signs Last Recorded V/S: Last Vital Signs Temp 36.3 C 04/23/19 02:30 Pulse 102 H 04/23/19 04:24 Resp 18 04/23/19 04:24 BP 169/105 H 04/23/19 04:24 Pulse Ox 96 04/23/19 02:30 - Orders/Labs/Meds Orders: Active Orders 24 hr Category Date Time Status DRUG SCREEN, URINE [URCHEM] Stat Lab 04/23/19 02:42 Ordered UA RFX FRANTZ AND CULT IF INDIC [URIN] Stat Lab 04/23/19 02:42 Ordered Sodium Chloride 0.9% [Saline Flush] Med 04/23/19 02:42 Active 10 ml FLUSH ASDIRECTED PRN Sodium Chloride 0.9% [Saline Flush] Med 04/23/19 02:42 Active 2.5 ml FLUSH ASDIRECTED PRN Saline Lock Insert [OM.PC] Stat Oth 04/23/19 02:42 Ordered Medication Orders Sodium Chloride (Saline Flush) 10 ml FLUSH ASDIRECTED PRN PRN Reason: Keep Vein Open Sodium Chloride (Saline Flush) 2.5 ml FLUSH ASDIRECTED PRN PRN Reason: Keep Vein Open Labs: Laboratory Tests 04/23/19 04/23/19 04/23/19 Range/Units 02:50 02:50 02:50 WBC 10.76 (4.0-11.0) K/uL RBC 4.88 (4.50-5.90) M/uL Hgb 10.9 L (13.0-17.0) g/dL Hct 33.1 L (38.0-50.0) % MCV 67.8 L (80.0-98.0) fL MCH 22.3 L (27.0-32.0) pg MCHC 32.9 (31.0-37.0) g/dL RDW Std Deviation 40.9 (28.0-62.0) fl RDW Coeff of Dania 17 H (11.0-15.0) % Plt Count 312 (150-400) K/uL MPV 11.40 (7.40-12.00) fL Neut % (Auto) 79.8 (48.0-80.0) % Lymph % (Auto) 14.5 L (16.0-40.0) % Cherry % (Auto) 4.5 (0.0-15.0) % Eos % (Auto) 0.7 (0.0-7.0) % Baso % (Auto) 0.5 (0.0-1.5) % Neut # (Auto) 8.6 H (1.4-5.7) K/uL Lymph # (Auto) 1.6 (0.6-2.4) K/uL Cherry # (Auto) 0.5 (0.0-0.8) K/uL Eos # (Auto) 0.1 (0.0-0.7) K/uL Baso # (Auto) 0.1 (0.0-0.1) K/uL VBG pH 7.45 H (7.31-7.41) VBG pCO2 39 (35-45) mmHG VBG pO2 41 H (30-40) mmHG VBG HCO3 27 (22-30) mEq/L VBG Total CO2 25 L (41-51) mmol/L VBG Base Excess 3.0 (-3.0-3.0) Sodium 140 (136-148) mmol/L Potassium 4.8 (3.5-5.1) mmol/L Chloride 104 (98-107) mmol/L Carbon Dioxide 25.5 (21.0-32.0) mmol/L BUN 27 H (7.0-18.0) mg/dL Creatinine 1.8 H (0.8-1.3) mg/dL Est Cr Clr Drug Dosing 58.37 mL/min Estimated GFR (MDRD) 52.9 ml/min Glucose 373 H (74-106) mg/dL Calcium 9.1 (8.5-10.1) mg/dL Total Bilirubin 0.2 (0.2-1.0) mg/dL AST 41 H (15-37) IU/L ALT 68 H (14-63) IU/L Alkaline Phosphatase 135 H (46-116) U/L Total Protein 6.4 (6.4-8.2) g/dL Albumin 2.7 L (3.4-5.0) g/dL Globulin 3.7 (2.6-4.0) g/dL Albumin/Globulin Ratio 0.7 L (0.9-1.6) Meds: Medications Generic Name Dose Route Start Last Admin Trade Name Freq PRN Reason Stop Dose Admin Sodium Chloride 10 ml 04/23/19 02:42 Saline Flush FLUSH ASDIRECTED PRN Keep Vein Open Sodium Chloride 2.5 ml 04/23/19 02:42 Saline Flush FLUSH ASDIRECTED PRN Keep Vein Open Discontinued Medications Generic Name Dose Route Start Last Admin Trade Name Freq PRN Reason Stop Dose Admin Diphenhydramine HCl 50 mg 04/23/19 02:44 04/23/19 03:13 Benadryl IVPUSH 04/23/19 02:45 50 mg ONETIME ONE Administration Hydralazine HCl 10 mg 04/23/19 02:43 04/23/19 03:17 Apresoline IVPUSH 04/23/19 02:44 10 mg ONETIME ONE Administration Hydralazine HCl 10 mg 04/23/19 03:40 04/23/19 04:29 Apresoline IVPUSH 04/23/19 03:41 Not Given ONETIME ONE Sodium Chloride 1,000 mls @ 999 mls/hr 04/23/19 02:43 04/23/19 03:13 Normal Saline IV 04/23/19 03:43 999 mls/hr STAT ONE Administration Sodium Chloride Confirm 04/23/19 02:56 04/23/19 03:22 Normal Saline Administered 04/23/19 02:57 20 mls/hr Dose Administration 20 mls @ as directed .ROUTE .STK-MED ONE Sodium Chloride 1,000 mls @ 999 mls/hr 04/23/19 04:25 04/23/19 04:28 Normal Saline IV 04/23/19 05:25 999 mls/hr STAT ONE Administration Insulin Human Regular 12 unit 04/23/19 03:38 04/23/19 03:47 Novolin R SUBCUT 04/23/19 03:39 12 units ONETIME ONE Administration Protocol Insulin Human Regular 15 unit 04/23/19 04:26 04/23/19 04:30 Novolin R SUBCUT 04/23/19 04:27 15 unit ONETIME ONE Administration Protocol Metoclopramide HCl 10 mg 04/23/19 02:44 04/23/19 03:14 Reglan IV 04/23/19 02:45 10 mg ONETIME ONE Administration Pantoprazole Sodium 80 mg 04/23/19 02:52 04/23/19 03:20 Protonix Iv IVPUSH 04/23/19 02:53 80 mg .BOLUS ONE Administration Departure - Departure Time of Disposition: 05:53 Disposition: Home, Self-Care 01 Condition: Good Clinical Impression: Vomiting, Gastroparesis Hypertension Qualifiers: Hypertension type: essential hypertension Qualified Code(s): I10 - Essential ( primary) hypertension - Discharge Information Referrals: PCP,None [Primary Care Provider] - Forms: ED Department Discharge Additional Instructions: The following information is given to patients seen in the emergency department who are being discharged to home. This information is to outline your options for follow-up care. We provide all patients seen in our emergency department with a follow-up referral. The need for follow-up, as well as the timing and circumstances, are variable depending upon the specifics of your emergency department visit. If you don't have a primary care physician on staff, we will provide you with a referral. We always advise you to contact your personal physician following an emergency department visit to inform them of the circumstance of the visit and for follow-up with them and/or the need for any referrals to a consulting specialist. The emergency department will also refer you to a specialist when appropriate. This referral assures that you have the opportunity for followup care with a specialist. All of these measure are taken in an effort to provide you with optimal care, which includes your followup. Under all circumstances we always encourage you to contact your private physician who remains a resource for coordinating your care. When calling for followup care, please make the office aware that this follow-up is from your recent emergency room visit. If for any reason you are refused follow-up, please contact the emergency department at and ask to speak to the emergency department charge nurse. [facility] Primary care- Internal Medicine and Family [place] [phone] Continue all home medications and eat bland bites of food and sips of clear liquids. Please call and schedule a follow-up appointment with your provider in the clinic and return to ER as needed and as discussed. - My Orders Last 24 Hours: My Active Orders 04/23/19 02:42 DRUG SCREEN, URINE [URCHEM] Stat UA RFX FRANTZ AND CULT IF INDIC [URIN] Stat Sodium Chloride 0.9% [Saline Flush] 10 ml FLUSH ASDIRECTED PRN Sodium Chloride 0.9% [Saline Flush] 2.5 ml FLUSH ASDIRECTED PRN Saline Lock Insert [OM.PC] Stat - Assessment/Plan Last 24 Hours: My Active Orders 04/23/19 02:42 DRUG SCREEN, URINE [URCHEM] Stat UA RFX FRANTZ AND CULT IF INDIC [URIN] Stat Sodium Chloride 0.9% [Saline Flush] 10 ml FLUSH ASDIRECTED PRN Sodium Chloride 0.9% [Saline Flush] 2.5 ml FLUSH ASDIRECTED PRN Saline Lock Insert [OM.PC] Stat
[2019-04-23] MEDS ORDERED: Sodium Chloride 0.9% 2.5 ML Syringe FLUSH PRN (02:42)
[2019-04-23] MEDS ORDERED: Sodium Chloride 0.9% 10 ML Syringe FLUSH PRN (02:42)
[2019-04-23] MEDS ORDERED: Sodium Chloride 0.9% 1,000 ML IV ONE ×2 (02:43→04:25)
[2019-04-23] MEDS ORDERED: hydrALAZINE 20 MG/ML SDV IVPUSH ONE ×2 (02:43→03:40)
[2019-04-23] MEDS ORDERED: diphenhydrAMINE 50 MG/ML SDV IVPUSH ONE (02:44)
[2019-04-23] MEDS ORDERED: Metoclopramide 10 MG/2 ML SDV IV ONE (02:44)
[2019-04-23] MEDS ORDERED: Pantoprazole 40 MG Vial IVPUSH ONE (02:52)
[2019-04-23] MEDS ORDERED: Sodium Chloride 0.9% 20 ML ONE (02:56)
[2019-04-23 03:23] LABS: CARBON DIOXIDE,CO2 25.5 mmol/L (21.0-32.0); POTASSIUM,K 4.8 mmol/L (3.5-5.1)
[2019-04-23] MEDS ORDERED: Insulin Regular, Human 100 Units/ML 10 ML Vial SUBCUT ONE ×2 (03:38→04:26)
--- NOTE | 2019-04-23 04:13 | CR ---
INDICATION: abdominal pain TECHNIQUE: Chest and Abdominal radiograph 3 views COMPARISON: 04/15/19 FINDINGS: CHEST: Mediastinum: The mediastinum is normal in appearance. The heart silhouette is normal in size and morphology. Lung: Both lungs are unremarkable in appearance. No sign of pleural effusion seen. No pneumothorax is identified. ABDOMEN: Bowel: The bowel gas pattern is normal without evidence of bowel obstruction. Soft tissue: No evidence of pneumoperitoneum present. No suspicious calcifications noted. An oval density is noted in the right lower quadrant, likely an overlying artifact. Bone: Unremarkable for age. IMPRESSION: 1. Unremarkable appearance of the chest and abdomen. Dictated by: Josh Vick MD @ 04/23/2019 04:10:55 (Electronically Signed)
[2019-04-23 04:24] VITALS: BP 169/105; PULSE 102
== END 2019-04-23 06:13 | disposition home or self-care (01) ==
LOC: MW.ED 02:29
DX: K31.84 Gastroparesis (principal); I10 Essential (primary) hypertension; I12.9 Hypertensive chronic kidney disease with stage 1 through stage 4 chronic kidney disease, or unspecified chronic kidney disease; N18.9 Chronic kidney disease, unspecified; K21.9 Gastro-esophageal reflux disease without esophagitis; F41.9 Anxiety disorder, unspecified; E10.21 Type 1 diabetes mellitus with diabetic nephropathy; E10.22 Type 1 diabetes mellitus with diabetic chronic kidney disease; Z86.14 Personal history of Methicillin resistant Staphylococcus aureus infection; Z91.013 Allergy to seafood; Z88.0 Allergy status to penicillin; Z91.048 Other nonmedicinal substance allergy status; Z91.018 Allergy to other foods; Z79.899 Other long term (current) drug therapy; Z79.4 Long term (current) use of insulin; Z79.82 Long term (current) use of aspirin
CPT/HCPCS: 74022; 80053; 82803; 82962; 85025; 96361; 96374; 96375; 99285; C9113; J0360; J1200; J2765; J7040; J1815-GY

== ENCOUNTER 2019-04-23 21:21 | Observation (INO) | payer MEDICAID ==
--- NOTE | 2019-04-23 21:30 | EDM.PDOC ---
ED HPI GENERAL MEDICAL PROBLEM - General Chief Complaint: Gastrointestinal Problem Stated Complaint: PT HAS STOMACH PAIN Time Seen by Provider: 04/23/19 21:27 - History of Present Illness INITIAL COMMENTS - FREE TEXT/NARRATIVE: HISTORY AND PHYSICAL: History of present illness: The patient is a 34-year-old male who is well known to this provider and this emergency department for multiple ER visits and admissions or his poorly controlled diabetes and hypertension gastroparesis with vomiting GI bleed and medication noncompliance; this patient was seen less than 24 hours ago by this provider for complaints of abdominal pain vomiting and inability to take his meds and was managed with fluids meds and was discharged home at about 6:00 this morning. He represented to the ED tonight saying that after he left here he was feeling good and that the medications that I gave him this morning and in the late hours of the night wore off and then he started having the vomiting and the pain again and he can't keep his meds down again. He says he is vomiting coffee ground emesis again which is typical of this patient with his gastroparesis and retching. He denies chest pain or shortness of breath no lower abdominal pain no flank pain and no urinary symptoms and he is not dizzy or lightheaded. Please see my note from earlier today as it documents he has recent been visit here in the ED at the end of March was transferred to [facility] and also that I obtained those reports on a visit last week which showed that he had an upper endoscopy performed on that visit showing mild gastritis in the stomach and a linear oval nonbleeding ulceration at the distal esophagus. The patient had been placed on Protonix and Reglan after being seen by GI at [facility] in [place]. Review of systems: As per history of present illness and below otherwise all systems reviewed and negative. Past medical history: As per history of present illness and as reviewed below otherwise noncontributory. Surgical history: As per history of present illness and as reviewed below otherwise noncontributory. Social history: No reported history of drug or alcohol abuse. Family history: As per history of present illness and as reviewed below otherwise noncontributory. Physical exam: General: Well-developed thin man who is nontoxic and very exaggerated/tearful on my examination but when redirected seems to be much calmer. HEENT: Atraumatic, normocephalic, pupils reactive, negative for conjunctival pallor or scleral icterus, mucous membranes moist, throat clear, neck supple, nontender, trachea midline. Lungs: Clear to auscultation, breath sounds equal bilaterally, chest nontender. No wheezing stridor or work of breathing Heart: S1S2, regular rhythm and tachycardic rate on my evaluation but no overt murmurs Abdomen: Soft, nondistended, diffuse upper abdominal tenderness with some voluntary guarding and bowel sounds are hypoactive Negative for masses or hepatosplenomegaly. Negative for costovertebral tenderness. Pelvis: Stable nontender. Genitourinary: Deferred. Rectal: Deferred. Extremities: Atraumatic, the patient has a right BKA and his other extremities have full range of motion Neurovascular unremarkable. Neuro: Awake, alert, oriented. Cranial nerves II through XII unremarkable. Cerebellum unremarkable. Motor and sensory unremarkable throughout. Exam nonfocal. Diagnostics: EKG CBC CMP amylase lipase UA with reflex UDS VBG CT scan of the abdomen and pelvis Therapeutics: IV fluids Reglan Benadryl Ativan Protonix hydralazine 2245: Case was discussed with Dr. Jeffery and the patient has been resting comfortably here in the ED but remains hypertensive. He has not had any vomiting here in the ED. He also has not produced any urine for UA UDS. In light of the fact the patient has represented here with the same symptoms in less than 24 hours he will be admitted here for observation. Impression: Persistent vomiting with history of gastroparesis, hypertension Definitive disposition and diagnosis as appropriate pending reevaluation and review of above. abdomen Pain Score (Numeric/FACES): 9 - Related Data Allergies Allergy/AdvReac Type Severity Reaction Status Date / Time shrimp Allergy Severe Swelling Verified 04/23/19 02:32 iodine Allergy Unknown Anaphylactic Verified 04/23/19 02:32 Shock Penicillins Allergy Unknown Anaphylactic Verified 04/23/19 02:32 Shock shellfish derived Allergy Anaphylactic Verified 04/23/19 02:32 Shock gluten Allergy Unknown Muscle Uncoded 04/23/19 02:32 Aches Home Meds: Home Meds Doxazosin [Cardura] 2 mg PO BEDTIME 09/25/17 [History] Enalapril [Vasotec] 40 mg PO BEDTIME 09/25/17 [History] Torsemide 20 mg PO DAILY 09/25/17 [History] amLODIPine Besylate [Amlodipine Besylate] 10 mg PO BEDTIME 09/25/17 [History] Ferrous Sulfate 324 mg PO DAILY 01/20/18 [History] hydrALAZINE [Apresoline] 25 mg PO TID 30 Days #90 tablet 01/29/18 [Rx] Insulin Glarg,Human.Rec.Analog [Lantus Solostar] 35 units SUBCUT BEDTIME [History] Insulin Aspart [NovoLOG] 0 unit SUBCUT ASDIRECTED PRN 05/23/18 [History] Spironolactone [Aldactone] 25 mg PO DAILY 12/14/18 [History] hydroCHLOROthiazide [Hydrochlorothiazide] 25 mg PO DAILY 12/14/18 [History] Aspirin [Halfprin] 81 mg PO DAILY #30 tab.ec 12/15/18 [Rx] atorvaSTATin [Lipitor] 80 mg PO BEDTIME #60 tablet 12/15/18 [Rx] Metoclopramide [Reglan] 5 mg PO TIDAC #90 tab 03/11/19 [Rx] Iron Sucrose Complex [Venofer] 200 mg IV Q2D #4 bag 04/05/19 [Rx] Pantoprazole Sodium [Protonix] 40 mg PO BID #60 tablet.dr 04/05/19 [Rx] Sucralfate [Carafate] 1 gm PO QIDACANDBED #120 ml 04/05/19 [Rx] Past Medical History - Past Health History Medical/Surgical History: Denies Medical/Surgical History HEENT History: Reports: Impaired Vision Other HEENT History: blind right eye Cardiovascular History: Reports: Hypertension Respiratory History: Reports: None Gastrointestinal History: Reports: Gastritis, GERD, Hiatal Hernia, Other (See Below) Other Gastrointestinal History: h/o gastric ulcers, h/o hiatal hernia; gastroparesis Genitourinary History: Reports: Chronic Renal Insuffiency, Diabetic Nephropathy Musculoskeletal History: Reports: Amputation Neurological History: Reports: Neuropathy, Peripheral Other Neuro History: stroke 3 months ago Psychiatric History: Reports: Anxiety Endocrine/Metabolic History: Reports: Diabetes, Type I Other Endocrine/Metabolic History: brittle diabetic. History of hyperkalemia and DKA Hematologic History: Reports: Anemia Immunologic History: Reports: None Oncologic (Cancer) History: Reports: None Dermatologic History: Reports: Other (See Below) Other Dermatologic History: diabetic foot ulcers - Infectious Disease History Infectious Disease History: Reports: Chicken Pox, MRSA Other Infectious Disease History: 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 - Past Surgical History Head Surgeries/Procedures: Reports: None Social & Family History - Family History Family Medical History: Noncontributory Cardiac: Reports: High Cholesterol, Hypertension OBGYN: Reports: Neurological: Reports: None - Caffeine Use Caffeine Use: Reports: Coffee, Energy Drinks, Soda, Tea Other Caffeine Use: daily - Living Situation & Occupation Living situation: Reports: Single Occupation: Employed (Currently unemployed.) ED ROS GENERAL - Review of Systems Review Of Systems: ROS reveals no pertinent complaints other than HPI. ED EXAM, GENERAL - Physical Exam Exam: See Below (See dictation) Course - Vital Signs Last Recorded V/S: Last Vital Signs Temp 36.3 C 04/23/19 21:24 Pulse 91 04/23/19 22:52 Resp 18 04/23/19 22:52 BP 169/115 H 04/23/19 22:52 Pulse Ox 98 04/23/19 22:52 - Orders/Labs/Meds Orders: Active Orders 24 hr Category Date Time Status Patient Status [ADT] Stat ADT 04/23/19 23:12 Ordered Cardiac Monitoring [RC] . DIRECTED Care 04/23/19 21:36 Active EKG Documentation Completion [RC] STAT Care 04/23/19 21:37 Active DRUG SCREEN, URINE [URCHEM] Stat Lab 04/23/19 21:37 Ordered UA RFX FRANTZ AND CULT IF INDIC [URIN] Stat Lab 04/23/19 21:37 Ordered Sodium Chloride 0.9% [Saline Flush] Med 04/23/19 21:36 Active 10 ml FLUSH ASDIRECTED PRN Sodium Chloride 0.9% [Saline Flush] Med 04/23/19 21:36 Active 2.5 ml FLUSH ASDIRECTED PRN Saline Lock Insert [OM.PC] Stat Oth 04/23/19 21:36 Ordered Medication Orders Sodium Chloride (Saline Flush) 10 ml FLUSH ASDIRECTED PRN PRN Reason: Keep Vein Open Sodium Chloride (Saline Flush) 2.5 ml FLUSH ASDIRECTED PRN PRN Reason: Keep Vein Open Labs: Laboratory Tests 04/23/19 04/23/19 04/23/19 Range/Units 21:40 21:40 21:40 WBC 11.82 H (4.0-11.0) K/uL RBC 5.09 (4.50-5.90) M/uL Hgb 11.3 L (13.0-17.0) g/dL Hct 34.3 L (38.0-50.0) % MCV 67.4 L (80.0-98.0) fL MCH 22.2 L (27.0-32.0) pg MCHC 32.9 (31.0-37.0) g/dL RDW Std Deviation 41.4 (28.0-62.0) fl RDW Coeff of Dania 17 H (11.0-15.0) % Plt Count 367 (150-400) K/uL MPV 10.90 (7.40-12.00) fL Neut % (Auto) 75.0 (48.0-80.0) % Lymph % (Auto) 19.2 (16.0-40.0) % [place] % (Auto) 4.9 (0.0-15.0) % Eos % (Auto) 0.5 (0.0-7.0) % Baso % (Auto) 0.4 (0.0-1.5) % Neut # (Auto) 8.9 H (1.4-5.7) K/uL Lymph # (Auto) 2.3 (0.6-2.4) K/uL [place] # (Auto) 0.6 (0.0-0.8) K/uL Eos # (Auto) 0.1 (0.0-0.7) K/uL Baso # (Auto) 0.1 (0.0-0.1) K/uL VBG pH 7.44 H (7.31-7.41) VBG pCO2 39 (35-45) mmHG VBG pO2 35 (30-40) mmHG VBG HCO3 26 (22-30) mEq/L VBG Total CO2 24 L (41-51) mmol/L VBG Base Excess 2.1 (-3.0-3.0) Sodium 140 (136-148) mmol/L Potassium 3.9 (3.5-5.1) mmol/L Chloride 103 (98-107) mmol/L Carbon Dioxide 25.6 (21.0-32.0) mmol/L BUN 23 H (7.0-18.0) mg/dL Creatinine 1.9 H (0.8-1.3) mg/dL Est Cr Clr Drug Dosing 55.30 mL/min Estimated GFR (MDRD) 49.7 ml/min Glucose 271 H (74-106) mg/dL Calcium 8.9 (8.5-10.1) mg/dL Total Bilirubin 0.1 L (0.2-1.0) mg/dL AST 27 (15-37) IU/L ALT 52 (14-63) IU/L Alkaline Phosphatase 129 H (46-116) U/L Total Protein 6.5 (6.4-8.2) g/dL Albumin 2.6 L (3.4-5.0) g/dL Globulin 3.9 (2.6-4.0) g/dL Albumin/Globulin Ratio 0.7 L (0.9-1.6) Amylase 47 (25-115) U/L Lipase 24 L (73-393) U/L Meds: Medications Generic Name Dose Route Start Last Admin Trade Name Freq PRN Reason Stop Dose Admin Sodium Chloride 10 ml 04/23/19 21:36 Saline Flush FLUSH ASDIRECTED PRN Keep Vein Open Sodium Chloride 2.5 ml 04/23/19 21:36 Saline Flush FLUSH ASDIRECTED PRN Keep Vein Open Discontinued Medications Generic Name Dose Route Start Last Admin Trade Name Freq PRN Reason Stop Dose Admin Diphenhydramine HCl 50 mg 04/23/19 21:38 04/23/19 21:57 Benadryl IVPUSH 04/23/19 21:39 50 mg ONETIME ONE Administration Hydralazine HCl 10 mg 04/23/19 22:49 04/23/19 22:57 Apresoline IVPUSH 04/23/19 22:50 10 mg ONETIME ONE Administration Sodium Chloride 1,000 mls @ 999 mls/hr 04/23/19 21:38 04/23/19 21:43 Normal Saline IV 04/23/19 22:38 999 mls/hr STAT ONE Administration Sodium Chloride Confirm 04/23/19 21:49 04/23/19 22:01 Normal Saline Administered 04/23/19 21:50 Not Given Dose 20 mls @ as directed .ROUTE .STK-MED ONE Lorazepam 1 mg 08/10/19 21:38 04/23/19 21:58 Ativan IVPUSH 04/23/19 21:39 1 mg ONETIME ONE Administration Metoclopramide HCl 10 mg 04/23/19 21:38 04/23/19 21:54 Reglan IV 04/23/19 21:39 10 mg ONETIME ONE Administration Pantoprazole Sodium 80 mg 04/23/19 21:38 04/23/19 22:00 Protonix Iv IVPUSH 04/23/19 21:39 80 mg .BOLUS ONE Administration Sodium Chloride 20 ml 04/23/19 21:56 04/23/19 21:59 Normal Saline FLUSH 04/23/19 21:57 20 ml ONETIME ONE Administration Departure - Departure Time of Disposition: 23:14 Disposition: Refer to Observation Condition: Good Clinical Impression: Vomiting Qualifiers: Vomiting type: unspecified Vomiting Intractability: non-intractable Nausea presence: with nausea Qualified Code(s): R11.2 - Nausea with vomiting, unspecified - Discharge Information Referrals: PCP,None [Primary Care Provider] - Forms: ED Department Discharge - My Orders Last 24 Hours: My Active Orders 04/23/19 21:36 Cardiac Monitoring [RC] . DIRECTED Sodium Chloride 0.9% [Saline Flush] 10 ml FLUSH ASDIRECTED PRN Sodium Chloride 0.9% [Saline Flush] 2.5 ml FLUSH ASDIRECTED PRN Saline Lock Insert [OM.PC] Stat 04/23/19 21:37 EKG Documentation Completion [RC] STAT DRUG SCREEN, URINE [URCHEM] Stat UA RFX FRANTZ AND CULT IF INDIC [URIN] Stat 04/23/19 23:12 Patient Status [ADT] Stat - Assessment/Plan Last 24 Hours: My Active Orders 04/23/19 21:36 Cardiac Monitoring [RC] . DIRECTED Sodium Chloride 0.9% [Saline Flush] 10 ml FLUSH ASDIRECTED PRN Sodium Chloride 0.9% [Saline Flush] 2.5 ml FLUSH ASDIRECTED PRN Saline Lock Insert [OM.PC] Stat 04/23/19 21:37 EKG Documentation Completion [RC] STAT DRUG SCREEN, URINE [URCHEM] Stat UA RFX FRANTZ AND CULT IF INDIC [URIN] Stat 04/23/19 23:12 Patient Status [ADT] Stat
[2019-04-23] MEDS ORDERED: Sodium Chloride 0.9% 10 ML Syringe FLUSH PRN (21:36)
[2019-04-23] MEDS ORDERED: Sodium Chloride 0.9% 2.5 ML Syringe FLUSH PRN (21:36)
[2019-04-23] MEDS ORDERED: diphenhydrAMINE 50 MG/ML SDV IVPUSH ONE (21:38)
[2019-04-23] MEDS ORDERED: LORazepam 2 MG/ML SDV IVPUSH ONE (21:38)
[2019-04-23] MEDS ORDERED: Metoclopramide 10 MG/2 ML SDV IV ONE (21:38)
[2019-04-23] MEDS ORDERED: Sodium Chloride 0.9% 1,000 ML IV ONE (21:38)
[2019-04-23] MEDS ORDERED: Pantoprazole 40 MG Vial IVPUSH ONE (21:38)
[2019-04-23] MEDS ORDERED: Sodium Chloride 0.9% 20 ML ONE (21:49)
[2019-04-23] MEDS ORDERED: Sodium Chloride 0.9% 20 ML SDV FLUSH ONE (21:56)
[2019-04-23 22:09] LABS: CARBON DIOXIDE,CO2 25.6 mmol/L (21.0-32.0); POTASSIUM,K 3.9 mmol/L (3.5-5.1)
[2019-04-23] MEDS ORDERED: hydrALAZINE 20 MG/ML SDV IVPUSH ONE (22:49)
--- NOTE | 2019-04-23 22:57 | CT ---
COMPARISON: CT 04/01/2019. TECHNIQUE: Routine noncontrast axial CT images of the abdomen and pelvis. Sagittal and coronal reformatted series were also generated and reviewed. Total exam DLP 649 mGy-cm. FINDINGS: Mild bilateral dependent atelectasis. No pleural or pericardial effusion. Partial visualization of bilateral gynecomastia. - The liver, gallbladder, pancreas, spleen and adrenal glands have an unremarkable noncontrast appearance. There is no hydronephrosis or renal calculus. - Normal caliber aorta. No suspicious abdominal or pelvic adenopathy. - The appendix is normal. Moderate retained formed stool throughout the colon. No focal inflammatory change, perforation or abscess. Small fat containing umbilical hernia. - The urinary bladder is distended, but otherwise unremarkable. The prostate seminal vesicles are normal. No significant free fluid in the pelvis. - Mild degenerative changes at the left sacroiliac joint. Probable bone island in the right acetabulum. There are no acute or aggressive osseous findings. IMPRESSION: 1. No acute findings in the abdomen or pelvis. No bowel obstruction, hydronephrosis or urolithiasis. 2. Normal appendix. 3. Moderate retained formed stool throughout the colon, query history of constipation. 4. Other findings, as above. Please note that all CT scans at this facility use dose modulation, iterative reconstruction, and/or weight-based dosing when appropriate to reduce radiation dose to as low as reasonably achievable. Dictated by Yony Alvarado MD @ Apr 26 2019 4:48PM Signed by Dr. Yony Alvarado @ Apr 26 2019 4:53PM
[2019-04-23] MEDS ORDERED: Promethazine 25 MG/ML SDV IM PRN (23:50)
[2019-04-23] MEDS ORDERED: Ondansetron 4 MG/2 ML SDV IVPUSH PRN (23:50)
[2019-04-24] MEDS: Sodium Chloride 0.9% 1,000 ML IV SCH ×3 (00:20→16:22)
[2019-04-24] MEDS: hydrALAZINE 25 MG Tab PO SCH ×3 (05:33→21:52)
[2019-04-24 06:26] LABS: CARBON DIOXIDE,CO2 22.3 mmol/L (21.0-32.0); POTASSIUM,K 4.4 mmol/L (3.5-5.1)
[2019-04-24] MEDS: Insulin Aspart 100 Units/ML 3 ML Pen SUBCUT SCH ×3 (06:30→17:53)
[2019-04-24] MEDS: Metoclopramide 5 MG Tab PO SCH ×3 (06:31→17:53)
[2019-04-24] MEDS: Pantoprazole 40 MG Tab.CR PO SCH ×2 (09:26→20:08)
[2019-04-24] MEDS: Hydrochlorothiazide 25 MG Tab PO SCH (09:27)
[2019-04-24] MEDS: Spironolactone 25 MG Tab PO SCH (09:27)
[2019-04-24] MEDS ORDERED: Ketorolac 15 MG/ML SDV IVPUSH PRN (09:31)
--- NOTE | 2019-04-24 09:41 | PCM.HP ---
H&P History of Present Illness - General Date of Service: 04/24/19 Admit Problem/Dx: Admission Diagnosis/Problem Admission Diagnosis/Problem Vomiting - History of Present Illness Initial Comments - Free Text/Narative: 34 y/o male with history of uncontrolled diabetes and gastroparesis who presented to the ER complaining of nausea, vomiting and abdominal pain. CT abdomen was negative for any acute process. No obstruction. Patient states that he has been taking his medications as indicated but has not been able to keep food, fluids down due to nausea. Denies hemoptysis, chest pain, dyspnea, dysuria , diarrhea, constipation, blood in stool. abdomen Pain Score (Numeric/FACES): 8 - Related Data Allergies/Adverse Reactions: Allergies Allergy/AdvReac Type Severity Reaction Status Date / Time shrimp Allergy Severe Swelling Verified 04/24/19 00:20 iodine Allergy Unknown Anaphylactic Verified 04/24/19 00:20 Shock Penicillins Allergy Unknown Anaphylactic Verified 04/24/19 00:20 Shock shellfish derived Allergy Anaphylactic Verified 04/24/19 00:20 Shock gluten Allergy Unknown Muscle Uncoded 04/24/19 00:20 Aches Home Medications: Home Meds Doxazosin [Cardura] 2 mg PO BEDTIME 09/25/17 [History] Enalapril [Vasotec] 40 mg PO BEDTIME 09/25/17 [History] Torsemide 20 mg PO DAILY 09/25/17 [History] amLODIPine Besylate [Amlodipine Besylate] 10 mg PO BEDTIME 09/25/17 [History] Ferrous Sulfate 324 mg PO DAILY 01/20/18 [History] hydrALAZINE [Apresoline] 25 mg PO TID 30 Days #90 tablet 01/29/18 [Rx] Insulin Glarg,Human.Rec.Analog [Lantus Solostar] 35 units SUBCUT BEDTIME [History] Insulin Aspart [NovoLOG] 0 unit SUBCUT ASDIRECTED PRN 05/23/18 [History] Spironolactone [Aldactone] 25 mg PO DAILY 12/14/18 [History] hydroCHLOROthiazide [Hydrochlorothiazide] 25 mg PO DAILY 12/14/18 [History] Aspirin [Halfprin] 81 mg PO DAILY #30 tab.ec 12/15/18 [Rx] atorvaSTATin [Lipitor] 80 mg PO BEDTIME #60 tablet 12/15/18 [Rx] Metoclopramide [Reglan] 5 mg PO TIDAC #90 tab 03/11/19 [Rx] Pantoprazole Sodium [Protonix] 40 mg PO BID #60 tablet. 04/05/19 [Rx] Sucralfate [Carafate] 1 gm PO QIDACANDBED #120 ml 04/05/19 [Rx] Past Medical History - Past Health History Medical/Surgical History: Denies Medical/Surgical History HEENT History: Reports: Impaired Vision Other HEENT History: blind right eye Cardiovascular History: Reports: Hypertension Respiratory History: Reports: None Gastrointestinal History: Reports: Gastritis, GERD, Hiatal Hernia, Other (See Below) Other Gastrointestinal History: h/o gastric ulcers, h/o hiatal hernia; gastroparesis Genitourinary History: Reports: Chronic Renal Insuffiency, Diabetic Nephropathy Musculoskeletal History: Reports: Amputation Neurological History: Reports: Neuropathy, Peripheral Other Neuro History: stroke 3 months ago Psychiatric History: Reports: Anxiety Endocrine/Metabolic History: Reports: Diabetes, Type I Other Endocrine/Metabolic History: brittle diabetic. History of hyperkalemia and DKA Hematologic History: Reports: Anemia Immunologic History: Reports: None Oncologic (Cancer) History: Reports: None Dermatologic History: Reports: Other (See Below) Other Dermatologic History: diabetic foot ulcers - Infectious Disease History Infectious Disease History: Reports: Chicken Pox, MRSA Other Infectious Disease History: 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 - Past Surgical History Head Surgeries/Procedures: Reports: None Social & Family History - Family History Family Medical History: Noncontributory Cardiac: Reports: High Cholesterol, Hypertension OBGYN: Reports: Neurological: Reports: None - Tobacco Use Smoking Status *Q: Former Smoker Years of Tobacco use: 7 Used Tobacco, but Quit: Yes Month/Year Tobacco Last Used: July, Second Hand Smoke Exposure: No - Caffeine Use Caffeine Use: Reports: Coffee, Energy Drinks, Soda Other Caffeine Use: daily - Recreational Drug Use Recreational Drug Use: No - Living Situation & Occupation Living situation: Reports: Single Occupation: Employed (Currently unemployed.) H&P Review of Systems - Review of Systems: Review Of Systems: ROS reveals no pertinent complaints other than HPI. Exam - Exam Exam: See Below - Vital Signs Vital Signs: Last Vital Signs Temp 37.4 C 04/24/19 07:30 Pulse 105 H 04/24/19 08:19 Resp 20 04/24/19 08:19 BP 185/114 H 04/24/19 08:19 Pulse Ox 98 04/24/19 07:30 Weight: 74.707 kg - Exam General: Alert, Oriented Lungs: Clear to Auscultation, Normal Respiratory Effort Cardiovascular: Regular Rate, Regular Rhythm GI/Abdominal Exam: Soft, Non-Tender, No Distention Extremities: Other (right BKA) Skin: Warm, Dry - Patient Data Lab Results Last 24 hrs: Laboratory Results - last 24 hr 04/23/19 04/23/19 04/23/19 Range/Units 21:40 21:40 21:40 WBC 11.82 H (4.0-11.0) K/uL RBC 5.09 (4.50-5.90) M/uL Hgb 11.3 L (13.0-17.0) g/dL Hct 34.3 L (38.0-50.0) % MCV 67.4 L (80.0-98.0) fL MCH 22.2 L (27.0-32.0) pg MCHC 32.9 (31.0-37.0) g/dL RDW Std Deviation 41.4 (28.0-62.0) fl RDW Coeff of Dania 17 H (11.0-15.0) % Plt Count 367 (150-400) K/uL MPV 10.90 (7.40-12.00) fL Neut % (Auto) 75.0 (48.0-80.0) % Lymph % (Auto) 19.2 (16.0-40.0) % Casey % (Auto) 4.9 (0.0-15.0) % Eos % (Auto) 0.5 (0.0-7.0) % Baso % (Auto) 0.4 (0.0-1.5) % Neut # (Auto) 8.9 H (1.4-5.7) K/uL Lymph # (Auto) 2.3 (0.6-2.4) K/uL Casey # (Auto) 0.6 (0.0-0.8) K/uL Eos # (Auto) 0.1 (0.0-0.7) K/uL Baso # (Auto) 0.1 (0.0-0.1) K/uL VBG pH 7.44 H (7.31-7.41) VBG pCO2 39 (35-45) mmHG VBG pO2 35 (30-40) mmHG VBG HCO3 26 (22-30) mEq/L VBG Total CO2 24 L (41-51) mmol/L VBG Base Excess 2.1 (-3.0-3.0) Sodium 140 (136-148) mmol/L Potassium 3.9 (3.5-5.1) mmol/L Chloride 103 (98-107) mmol/L Carbon Dioxide 25.6 (21.0-32.0) mmol/L BUN 23 H (7.0-18.0) mg/dL Creatinine 1.9 H (0.8-1.3) mg/dL Est Cr Clr Drug Dosing 55.30 mL/min Estimated GFR (MDRD) 49.7 ml/min Glucose 271 H (74-106) mg/dL POC Glucose (60-110) mg/dL Calcium 8.9 (8.5-10.1) mg/dL Total Bilirubin 0.1 L (0.2-1.0) mg/dL AST 27 (15-37) IU/L ALT 52 (14-63) IU/L Alkaline Phosphatase 129 H (46-116) U/L Total Protein 6.5 (6.4-8.2) g/dL Albumin 2.6 L (3.4-5.0) g/dL Globulin 3.9 (2.6-4.0) g/dL Albumin/Globulin Ratio 0.7 L (0.9-1.6) Amylase 47 (25-115) U/L Lipase 24 L (73-393) U/L Urine Color Urine Appearance Urine pH (5.0-8.0) Ur Specific [place] (1.001-1.035) Urine Protein (NEGATIVE) mg/dL Urine Glucose (UA) (NEGATIVE) mg/dL Urine Ketones (NEGATIVE) mg/dL Urine Occult Blood (NEGATIVE) Urine Nitrite (NEGATIVE) Urine Bilirubin (NEGATIVE) Urine Urobilinogen (<2.0) EU/dL Ur Leukocyte Esterase (NEGATIVE) Urine RBC (0-2/HPF) Urine WBC (0-5/HPF) Ur Epithelial Cells (NONE-FEW) Urine Bacteria (NEGATIVE) Urine Mucus (NONE-MOD) Urine Opiates Screen (NEGATIVE) Ur Oxycodone Screen (NEGATIVE) Urine Methadone Screen (NEGATIVE) Ur Barbiturates Screen (NEGATIVE) Ur Phencyclidine Scrn (NEGATIVE) Ur Amphetamine Screen (NEGATIVE) U Methamphetamines Scrn (NEGATIVE) U Benzodiazepines Scrn (NEGATIVE) U Cocaine Metab Screen (NEGATIVE) U Marijuana (THC) Screen (NEGATIVE) 04/23/19 04/23/19 04/24/19 Range/Units 23:16 23:16 05:43 WBC 11.38 H (4.0-11.0) K/uL RBC 4.51 (4.50-5.90) M/uL Hgb 10.2 L (13.0-17.0) g/dL Hct 30.7 L (38.0-50.0) % MCV 68.1 L (80.0-98.0) fL MCH 22.6 L (27.0-32.0) pg MCHC 33.2 (31.0-37.0) g/dL RDW Std Deviation 41.7 (28.0-62.0) fl RDW Coeff of Dania 17 H (11.0-15.0) % Plt Count 306 (150-400) K/uL MPV 11.20 (7.40-12.00) fL Neut % (Auto) 70.2 (48.0-80.0) % Lymph % (Auto) 23.2 (16.0-40.0) % Casey % (Auto) 5.2 (0.0-15.0) % Eos % (Auto) 1.0 (0.0-7.0) % Baso % (Auto) 0.4 (0.0-1.5) % Neut # (Auto) 8.0 H (1.4-5.7) K/uL Lymph # (Auto) 2.6 H (0.6-2.4) K/uL Casey # (Auto) 0.6 (0.0-0.8) K/uL Eos # (Auto) 0.1 (0.0-0.7) K/uL Baso # (Auto) 0.1 (0.0-0.1) K/uL VBG pH (7.31-7.41) VBG pCO2 (35-45) mmHG VBG pO2 (30-40) mmHG VBG HCO3 (22-30) mEq/L VBG Total CO2 (41-51) mmol/L VBG Base Excess (-3.0-3.0) Sodium (136-148) mmol/L Potassium (3.5-5.1) mmol/L Chloride (98-107) mmol/L Carbon Dioxide (21.0-32.0) mmol/L BUN (7.0-18.0) mg/dL Creatinine (0.8-1.3) mg/dL Est Cr Clr Drug Dosing mL/min Estimated GFR (MDRD) ml/min Glucose (74-106) mg/dL POC Glucose (60-110) mg/dL Calcium (8.5-10.1) mg/dL Total Bilirubin (0.2-1.0) mg/dL AST (15-37) IU/L ALT (14-63) IU/L Alkaline Phosphatase (46-116) U/L Total Protein (6.4-8.2) g/dL Albumin (3.4-5.0) g/dL Globulin (2.6-4.0) g/dL Albumin/Globulin Ratio (0.9-1.6) Amylase (25-115) U/L Lipase (73-393) U/L Urine Color YELLOW Urine Appearance HAZY Urine pH 7.5 (5.0-8.0) Ur Specific [place] 1.020 (1.001-1.035) Urine Protein >=300 H (NEGATIVE) mg/dL Urine Glucose (UA) >=1000 (NEGATIVE) mg/dL Urine Ketones NEGATIVE (NEGATIVE) mg/dL Urine Occult Blood TRACE-INTACT H (NEGATIVE) Urine Nitrite NEGATIVE (NEGATIVE) Urine Bilirubin NEGATIVE (NEGATIVE) Urine Urobilinogen 0.2 (<2.0) EU/dL Ur Leukocyte Esterase NEGATIVE (NEGATIVE) Urine RBC 0-2 (0-2/HPF) Urine WBC 0-1 (0-5/HPF) Ur Epithelial Cells RARE (NONE-FEW) Urine Bacteria RARE (NEGATIVE) Urine Mucus LIGHT (NONE-MOD) Urine Opiates Screen NEGATIVE (NEGATIVE) Ur Oxycodone Screen NEGATIVE (NEGATIVE) Urine Methadone Screen NEGATIVE (NEGATIVE) Ur Barbiturates Screen NEGATIVE (NEGATIVE) Ur Phencyclidine Scrn NEGATIVE (NEGATIVE) Ur Amphetamine Screen NEGATIVE (NEGATIVE) U Methamphetamines Scrn NEGATIVE (NEGATIVE) U Benzodiazepines Scrn NEGATIVE (NEGATIVE) U Cocaine Metab Screen NEGATIVE (NEGATIVE) U Marijuana (THC) Screen POSITIVE (NEGATIVE) 04/24/19 04/24/19 Range/Units 05:43 06:06 WBC (4.0-11.0) K/uL RBC (4.50-5.90) M/uL Hgb (13.0-17.0) g/dL Hct (38.0-50.0) % MCV (80.0-98.0) fL MCH (27.0-32.0) pg MCHC (31.0-37.0) g/dL RDW Std Deviation (28.0-62.0) fl RDW Coeff of Dania (11.0-15.0) % Plt Count (150-400) K/uL MPV (7.40-12.00) fL Neut % (Auto) (48.0-80.0) % Lymph % (Auto) (16.0-40.0) % Casey % (Auto) (0.0-15.0) % Eos % (Auto) (0.0-7.0) % Baso % (Auto) (0.0-1.5) % Neut # (Auto) (1.4-5.7) K/uL Lymph # (Auto) (0.6-2.4) K/uL Casey # (Auto) (0.0-0.8) K/uL Eos # (Auto) (0.0-0.7) K/uL Baso # (Auto) (0.0-0.1) K/uL VBG pH (7.31-7.41) VBG pCO2 (35-45) mmHG VBG pO2 (30-40) mmHG VBG HCO3 (22-30) mEq/L VBG Total CO2 (41-51) mmol/L VBG Base Excess (-3.0-3.0) Sodium 136 (136-148) mmol/L Potassium 4.4 (3.5-5.1) mmol/L Chloride 103 (98-107) mmol/L Carbon Dioxide 22.3 (21.0-32.0) mmol/L BUN 21 H (7.0-18.0) mg/dL Creatinine 1.7 H (0.8-1.3) mg/dL Est Cr Clr Drug Dosing 61.80 mL/min Estimated GFR (MDRD) 56.5 ml/min Glucose 480 H (74-106) mg/dL POC Glucose 446 H (60-110) mg/dL Calcium 8.3 L (8.5-10.1) mg/dL Total Bilirubin (0.2-1.0) mg/dL AST (15-37) IU/L ALT (14-63) IU/L Alkaline Phosphatase (46-116) U/L Total Protein (6.4-8.2) g/dL Albumin (3.4-5.0) g/dL Globulin (2.6-4.0) g/dL Albumin/Globulin Ratio (0.9-1.6) Amylase (25-115) U/L Lipase (73-393) U/L Urine Color Urine Appearance Urine pH (5.0-8.0) Ur Specific [place] (1.001-1.035) Urine Protein (NEGATIVE) mg/dL Urine Glucose (UA) (NEGATIVE) mg/dL Urine Ketones (NEGATIVE) mg/dL Urine Occult Blood (NEGATIVE) Urine Nitrite (NEGATIVE) Urine Bilirubin (NEGATIVE) Urine Urobilinogen (<2.0) EU/dL Ur Leukocyte Esterase (NEGATIVE) Urine RBC (0-2/HPF) Urine WBC (0-5/HPF) Ur Epithelial Cells (NONE-FEW) Urine Bacteria (NEGATIVE) Urine Mucus (NONE-MOD) Urine Opiates Screen (NEGATIVE) Ur Oxycodone Screen (NEGATIVE) Urine Methadone Screen (NEGATIVE) Ur Barbiturates Screen (NEGATIVE) Ur Phencyclidine Scrn (NEGATIVE) Ur Amphetamine Screen (NEGATIVE) U Methamphetamines Scrn (NEGATIVE) U Benzodiazepines Scrn (NEGATIVE) U Cocaine Metab Screen (NEGATIVE) U Marijuana (THC) Screen (NEGATIVE) Result Diagrams: 04/24/19 05:43 04/24/19 05:43 Problem List Initiated/Reviewed/Updated: Yes Orders Last 24hrs: Active Orders 24 hr Category Date Time Status Patient Status [ADT] Stat ADT 04/23/19 23:12 Active Antiembolic Devices [RC] PER UNIT ROUTINE Care 04/23/19 23:51 Active Blood Glucose Check, Bedside [RC] TIDMEALS Care 04/23/19 23:50 Active Cardiac Monitoring [RC] . DIRECTED Care 04/23/19 21:36 Active Oxygen Therapy [RC] PRN Care 04/23/19 23:51 Active VTE/DVT Education [RC] PER UNIT ROUTINE Care 04/23/19 23:51 Active Vital Signs [RC] Q4H Care 04/23/19 23:51 Active BASIC METABOLIC PANEL,BMP [CHEM] AM Lab 04/25/19 05:11 Ordered CBC W/O DIFF,HEMOGRAM [HEME] AM Lab 04/25/19 05:11 Ordered Doxazosin Med 04/24/19 21:00 Active 2 mg PO BEDTIME Enalapril [Vasotec] Med 04/24/19 21:00 Active 40 mg PO BEDTIME Insulin Aspart [NovoLOG] Med 04/24/19 07:30 Active See Protocol SUBCUT TIDAC Ketorolac [Toradol] Med 04/24/19 09:31 Ordered 15 mg IVPUSH Q6H PRN LORazepam [Ativan] Med 04/24/19 09:30 Active 1 mg IVPUSH Q8H PRN Metoclopramide [Reglan] Med 04/24/19 07:30 Active 5 mg PO TIDAC Ondansetron [Zofran] Med 04/23/19 23:50 Active 4 mg IVPUSH Q4H PRN Pantoprazole [ProTONIX] Med 04/24/19 09:00 Active 40 mg PO BID Promethazine [Phenergan] Med 04/23/19 23:50 Active 25 mg IM Q6H PRN Sodium Chloride 0.9% [Normal Saline] 1,000 ml Med 04/23/19 23:45 Active IV ASDIRECTED Sodium Chloride 0.9% [Saline Flush] Med 04/23/19 21:36 Active 10 ml FLUSH ASDIRECTED PRN Sodium Chloride 0.9% [Saline Flush] Med 04/23/19 21:36 Active 2.5 ml FLUSH ASDIRECTED PRN Spironolactone [Aldactone] Med 04/24/19 09:00 Active 25 mg PO DAILY amLODIPine Med 04/24/19 21:00 Active 10 mg PO BEDTIME hydrALAZINE [Apresoline] Med 04/24/19 06:00 Active 25 mg PO TID hydroCHLOROthiazide Med 04/24/19 09:00 Active 25 mg PO DAILY Saline Lock Insert [OM.PC] Stat Oth 08/10/19 21:36 Ordered Sequential Compression Device [OM.PC] Per Unit Routine Oth 04/23/19 23:51 Ordered Resuscitation Status Routine Resus Stat 04/23/19 23:50 Ordered Medication Orders Enalapril Maleate (Vasotec) 40 mg PO BEDTIME [facility] Hydralazine HCl (Apresoline) 25 mg PO TID [facility] Last Admin: 04/24/19 05:33 Dose: 25 mg Hydrochlorothiazide (Hydrochlorothiazide) 25 mg PO DAILY [facility] Last Admin: 04/24/19 09:27 Dose: 25 mg Sodium Chloride (Normal Saline) 1,000 mls @ 125 mls/hr IV ASDIRECTED [facility] Last Admin: 04/24/19 08:13 Dose: 125 mls/hr Infusion: 04/24/19 08:13 Dose: 125 mls/hr Admin: 04/24/19 00:20 Dose: 125 mls/hr Insulin Aspart (Novolog) 0 unit SUBCUT TIDAC [facility]; Protocol Last Admin: 04/24/19 06:30 Dose: 7 units Ketorolac Tromethamine (Toradol) 15 mg IVPUSH Q6H PRN PRN Reason: Pain Stop: 04/29/19 09:31 Lorazepam (Ativan) 1 mg IVPUSH Q8H PRN PRN Reason: Anxiety Metoclopramide HCl (Reglan) 5 mg PO TIDAC [facility] Last Admin: 04/24/19 06:31 Dose: 5 mg Non-Formulary Medication (Amlodipine) 10 mg PO BEDTIME [facility] Non-Formulary Medication (Doxazosin) 2 mg PO BEDTIME [facility] Ondansetron HCl (Zofran) 4 mg IVPUSH Q4H PRN PRN Reason: Nausea Last Admin: 04/24/19 08:12 Dose: 4 mg Pantoprazole Sodium (Protonix) 40 mg PO BID [facility] Last Admin: 04/24/19 09:26 Dose: 40 mg Promethazine HCl (Phenergan) 25 mg IM Q6H PRN PRN Reason: Nausea Sodium Chloride (Saline Flush) 10 ml FLUSH ASDIRECTED PRN PRN Reason: Keep Vein Open Sodium Chloride (Saline Flush) 2.5 ml FLUSH ASDIRECTED PRN PRN Reason: Keep Vein Open Spironolactone (Aldactone) 25 mg PO DAILY [facility] Last Admin: 04/24/19 09:27 Dose: 25 mg Assessment/Plan Comment:: A: 1. Nausea, vomiting 2. Marijuana abuse 3. PMH type 2 diabetes, hypertension P: 1. Will continue with NS IV maintenance. Control nausea with zofran and promethazine PRN. I have also ordered toradol 15 mg IV Q6H PRN for pain control. Resume home meds for hypertension. dispo:1-2 days
[2019-04-24] MEDS: LORazepam 2 MG/ML SDV IVPUSH PRN ×2 (09:49→23:43)
[2019-04-24] MEDS ORDERED: Insulin Aspart 100 Units/ML 3 ML Pen SUBCUT STA (17:52)
[2019-04-24] MEDS ORDERED: Non-Formulary Medication 1 Each (Amlodipine 10 MG) PO SCH (21:00)
[2019-04-24] MEDS ORDERED: DOXAZOSIN 2 MG PO SCH (21:00)
[2019-04-24] MEDS ORDERED: Doxazosin 2 MG Tab PO ONE (21:52)
[2019-04-24] MEDS ORDERED: amLODIPine 5 MG Tab PO ONE (21:52)
[2019-04-25] MEDS: Sodium Chloride 0.9% 1,000 ML IV SCH ×2 (00:31→07:25)
[2019-04-25] MEDS ORDERED: Insulin Aspart 100 Units/ML 3 ML Pen SUBCUT ONE (04:08)
[2019-04-25 06:02] LABS: POTASSIUM,K 3.8 mmol/L (3.5-5.1)
[2019-04-25] MEDS: Metoclopramide 5 MG Tab PO SCH (06:50)
[2019-04-25] MEDS: hydrALAZINE 25 MG Tab PO SCH ×2 (06:50→12:26)
[2019-04-25] MEDS ORDERED: amLODIPine 5 MG Tab PO SCH (07:26)
[2019-04-25] MEDS ORDERED: Doxazosin 2 MG Tab PO SCH (07:27)
[2019-04-25] MEDS: Insulin Aspart 100 Units/ML 3 ML Pen SUBCUT SCH ×2 (07:32→11:28)
[2019-04-25] MEDS ORDERED: Metoclopramide 10 MG Tab PO SCH ×2 (08:07→11:30)
[2019-04-25] MEDS: Hydrochlorothiazide 25 MG Tab PO SCH (08:11)
[2019-04-25] MEDS: Spironolactone 25 MG Tab PO SCH (08:11)
[2019-04-25] MEDS: Pantoprazole 40 MG Tab.CR PO SCH (08:11)
--- NOTE | 2019-04-25 08:11 | PCM.PN ---
- General Info Date of Service: 04/25/19 Admission Dx/Problem (Free Text): Admission Diagnosis/Problem Admission Diagnosis/Problem Vomiting - Patient Data Vitals - Most Recent: Last Vital Signs Temp 98.4 F 04/25/19 07:25 Pulse 99 04/25/19 07:25 Resp 18 04/25/19 07:25 BP 141/93 H 04/25/19 07:25 Pulse Ox 98 04/25/19 07:25 Weight - Most Recent: 74.888 kg I&O - Last 24 Hours: Intake & Output 04/24/19 04/25/19 04/25/19 22:59 06:59 14:59 Intake Total 1970 362 Output Total 1200 Balance 770 362 Lab Results Last 24 Hours: Laboratory Results - last 24 hr 04/23/19 04/24/19 04/24/19 Range/Units 21:29 09:56 11:55 WBC (4.0-11.0) K/uL RBC (4.50-5.90) M/uL Hgb (13.0-17.0) g/dL Hct (38.0-50.0) % MCV (80.0-98.0) fL MCH (27.0-32.0) pg MCHC (31.0-37.0) g/dL RDW Std Deviation (28.0-62.0) fl RDW Coeff of Dania (11.0-15.0) % Plt Count (150-400) K/uL MPV (7.40-12.00) fL Sodium (136-148) mmol/L Potassium (3.5-5.1) mmol/L Chloride (98-107) mmol/L Carbon Dioxide (21.0-32.0) mmol/L BUN (7.0-18.0) mg/dL Creatinine (0.8-1.3) mg/dL Est Cr Clr Drug Dosing mL/min Estimated GFR (MDRD) ml/min Glucose (74-106) mg/dL POC Glucose 266 H 209 H 216 H (60-110) mg/dL Calcium (8.5-10.1) mg/dL 04/24/19 04/25/19 04/25/19 Range/Units 16:42 03:59 05:20 WBC 8.75 (4.0-11.0) K/uL RBC 4.29 L (4.50-5.90) M/uL Hgb 9.8 L (13.0-17.0) g/dL Hct 29.2 L (38.0-50.0) % MCV 68.1 L (80.0-98.0) fL MCH 22.8 L (27.0-32.0) pg MCHC 33.6 (31.0-37.0) g/dL RDW Std Deviation 40.6 (28.0-62.0) fl RDW Coeff of Dania 17 H (11.0-15.0) % Plt Count 317 (150-400) K/uL MPV 10.60 (7.40-12.00) fL Sodium (136-148) mmol/L Potassium (3.5-5.1) mmol/L Chloride (98-107) mmol/L Carbon Dioxide (21.0-32.0) mmol/L BUN (7.0-18.0) mg/dL Creatinine (0.8-1.3) mg/dL Est Cr Clr Drug Dosing mL/min Estimated GFR (MDRD) ml/min Glucose (74-106) mg/dL POC Glucose 286 H 366 H (60-110) mg/dL Calcium (8.5-10.1) mg/dL 04/25/19 Range/Units 05:20 WBC (4.0-11.0) K/uL RBC (4.50-5.90) M/uL Hgb (13.0-17.0) g/dL Hct (38.0-50.0) % MCV (80.0-98.0) fL MCH (27.0-32.0) pg MCHC (31.0-37.0) g/dL RDW Std Deviation (28.0-62.0) fl RDW Coeff of Dania (11.0-15.0) % Plt Count (150-400) K/uL MPV (7.40-12.00) fL Sodium 138 (136-148) mmol/L Potassium 3.8 (3.5-5.1) mmol/L Chloride 105 (98-107) mmol/L Carbon Dioxide 22.0 (21.0-32.0) mmol/L BUN 18 (7.0-18.0) mg/dL Creatinine 1.8 H (0.8-1.3) mg/dL Est Cr Clr Drug Dosing 58.37 mL/min Estimated GFR (MDRD) 52.9 ml/min Glucose 329 H (74-106) mg/dL POC Glucose (60-110) mg/dL Calcium 8.1 L (8.5-10.1) mg/dL Med Orders - Current: Current Medications Amlodipine Besylate (Norvasc) 10 mg PO BEDTIME [facility] Doxazosin Mesylate (Cardura) 2 mg PO BEDTIME [facility] Enalapril Maleate (Vasotec) 40 mg PO BEDTIME [facility] Last Admin: 04/24/19 20:08 Dose: 40 mg Hydralazine HCl (Apresoline) 25 mg PO TID [facility] Last Admin: 04/25/19 06:50 Dose: 25 mg Hydrochlorothiazide (Hydrochlorothiazide) 25 mg PO DAILY [facility] Last Admin: 04/24/19 09:27 Dose: 25 mg Sodium Chloride (Normal Saline) 1,000 mls @ 125 mls/hr IV ASDIRECTED [facility] Last Admin: 04/25/19 07:25 Dose: 125 mls/hr Insulin Aspart (Novolog) 0 unit SUBCUT TIDAC [facility]; Protocol Last Admin: 04/25/19 07:32 Dose: 6 units Ketorolac Tromethamine (Toradol) 15 mg IVPUSH Q6H PRN PRN Reason: Pain Stop: 04/29/19 09:31 Last Admin: 04/24/19 09:48 Dose: 15 mg Lorazepam (Ativan) 1 mg IVPUSH Q8H PRN PRN Reason: Anxiety Last Admin: 04/24/19 23:43 Dose: 1 mg Metoclopramide HCl (Reglan) 10 mg PO TIDAC [facility] Ondansetron HCl (Zofran) 4 mg IVPUSH Q4H PRN PRN Reason: Nausea Last Admin: 04/24/19 08:12 Dose: 4 mg Pantoprazole Sodium (Protonix) 40 mg PO BID [facility] Last Admin: 04/24/19 20:08 Dose: 40 mg Promethazine HCl (Phenergan) 25 mg IM Q6H PRN PRN Reason: Nausea Sodium Chloride (Saline Flush) 10 ml FLUSH ASDIRECTED PRN PRN Reason: Keep Vein Open Sodium Chloride (Saline Flush) 2.5 ml FLUSH ASDIRECTED PRN PRN Reason: Keep Vein Open Spironolactone (Aldactone) 25 mg PO DAILY [facility] Last Admin: 04/24/19 09:27 Dose: 25 mg Sucralfate (Carafate) 1 gm PO QIDACANDBED MICHAEL Discontinued Medications Diphenhydramine HCl (Benadryl) 50 mg IVPUSH ONETIME ONE Stop: 04/23/19 21:39 Last Admin: 04/23/19 21:57 Dose: 50 mg Hydralazine HCl (Apresoline) 10 mg IVPUSH ONETIME ONE Stop: 04/23/19 22:50 Last Admin: 04/23/19 22:57 Dose: 10 mg Sodium Chloride (Normal Saline) 1,000 mls @ 999 mls/hr IV STAT ONE Stop: 04/23/19 22:38 Last Admin: 04/23/19 21:43 Dose: 999 mls/hr Sodium Chloride (Normal Saline) Confirm Administered Dose 20 mls @ as directed .ROUTE .STK-MED ONE Stop: 04/23/19 21:50 Last Admin: 04/23/19 22:01 Dose: Not Given Insulin Aspart (Novolog) 4 unit SUBCUT NOW STA Stop: 04/24/19 17:53 Last Admin: 04/24/19 18:21 Dose: 4 units Insulin Aspart (Novolog) 5 unit SUBCUT ONETIME ONE Stop: 04/25/19 04:09 Last Admin: 04/25/19 04:28 Dose: 5 units Lorazepam (Ativan) 1 mg IVPUSH ONETIME ONE Stop: 04/23/19 21:39 Last Admin: 04/23/19 21:58 Dose: 1 mg Metoclopramide HCl (Reglan) 10 mg IV ONETIME ONE Stop: 04/23/19 21:39 Last Admin: 04/23/19 21:54 Dose: 10 mg Metoclopramide HCl (Reglan) 5 mg PO TIDAC [facility] Last Admin: 04/25/19 06:50 Dose: 5 mg Non-Formulary Medication (Amlodipine) 10 mg PO BEDTIME [facility] Last Admin: 04/24/19 21:52 Dose: 10 mg Non-Formulary Medication (Doxazosin) 2 mg PO BEDTIME [facility] Last Admin: 04/24/19 21:52 Dose: 2 mg Pantoprazole Sodium (Protonix Iv) 80 mg IVPUSH .BOLUS ONE Stop: 04/23/19 21:39 Last Admin: 04/23/19 22:00 Dose: 80 mg Sodium Chloride (Normal Saline) 20 ml FLUSH ONETIME ONE Stop: 04/23/19 21:57 Last Admin: 04/23/19 21:59 Dose: 20 ml - My Orders Last 24 Hours: My Active Orders 04/25/19 08:07 Sucralfate [Carafate] 1 gm PO QIDACANDBED 04/25/19 11:30 Metoclopramide [Reglan] 10 mg PO TIDAC - Plan Plan:: A: 1. Nausea, vomiting 2. Marijuana abuse 3. PMH type 2 diabetes, hypertension P: 1. Will continue with NS IV maintenance. Control nausea with zofran and promethazine PRN. I have also ordered toradol 15 mg IV Q6H PRN for pain control. Resume home meds for hypertension. dispo:1-2 days
--- NOTE | 2019-04-25 10:21 | PCM.DCSUM1 ---
<Robina Jimenez M - Last Filed: 04/25/19 12:20> Discharge Summary - Hospital Course Brief History: This 34 year old male with pmh of Dm type 1, mild gastroparesis, PUD, CKD, HTN, and R BKA who presented to the ER complaining of nausea, vomiting and abdominal pain. CT abdomen was negative for any acute process. No obstruction. Patient states that he has been taking his medications as indicated but has not been able to keep food, fluids down due to nausea. Denies hemoptysis, chest pain, dyspnea, dysuria, diarrhea, constipation, blood in stool. Diagnosis: Stroke: No - Discharge Data Discharge Date: 04/25/19 Discharge Disposition: Home, Self-Care 01 Condition: Good - Patient Instructions Diet: Diabetic Diet (gastroparesis diet, as educated), GI Soft/Low Residue/Low Fiber Activity: As Tolerated Showering/Bathing: May Shower Notify Provider of: Fever, Increased Pain, Swelling and Redness, Drainage, Nausea and/or Vomiting - Discharge Plan *PRESCRIPTION DRUG MONITORING PROGRAM REVIEWED*: Not Applicable *COPY OF PRESCRIPTION DRUG MONITORING REPORT IN PATIENT IVELISSE: Not Applicable Home Medications: Home Meds Doxazosin [Cardura] 2 mg PO BEDTIME 09/25/17 [History] Enalapril [Vasotec] 40 mg PO BEDTIME 09/25/17 [History] Torsemide 20 mg PO DAILY 09/25/17 [History] amLODIPine Besylate [Amlodipine Besylate] 10 mg PO BEDTIME 09/25/17 [History] Ferrous Sulfate 324 mg PO DAILY 01/20/18 [History] hydrALAZINE [Apresoline] 25 mg PO TID 30 Days #90 tablet 01/29/18 [Rx] Insulin Glarg,Human.Rec.Analog [Lantus Solostar] 35 units SUBCUT BEDTIME [History] Insulin Aspart [NovoLOG] 0 unit SUBCUT ASDIRECTED PRN 05/23/18 [History] Spironolactone [Aldactone] 25 mg PO DAILY 12/14/18 [History] hydroCHLOROthiazide [Hydrochlorothiazide] 25 mg PO DAILY 12/14/18 [History] Aspirin [Halfprin] 81 mg PO DAILY #30 tab.ec 12/15/18 [Rx] atorvaSTATin [Lipitor] 80 mg PO BEDTIME #60 tablet 12/15/18 [Rx] Metoclopramide [Reglan] 5 mg PO TIDAC #90 tab 03/11/19 [Rx] Sucralfate [Carafate] 1 gm PO QIDACANDBED #120 ml 04/05/19 [Rx] Pantoprazole Sodium [Protonix] 40 mg PO BID #60 tablet. 04/25/19 [Rx] Oxygen Therapy Mode: Room Air Patient Handouts: Vomiting, Adult, Gastroparesis Referrals: [facility] [Outside] Fitz Infante MD [Physician] - 04/28/19 9:00 am - Discharge Summary/Plan Comment DC Time >30 min.: No Discharge Summary/Plan Comment: Admitting Diagnoses: Abdominal pain N/V Discharge Diagnoses: Gastroparesis PUD Other Diagnoses: DM Type 1- uncontrolled HTN CKD R BKA Waqas was admitted treated with bowel rest. Continue PPI and Carafate along with Reglan. He was treated with IVFs. This morning he is feeling good, tolerated breakfast and was able to keep this down. He is very concerned with his recurrent abdominal pain and N/V. He reported he arranged appointment with GI after last admission and that this was on the 27 of April. We called to confirm appointment in [place] and no other appointment besides on February 08 was made. I spoke with GI specialist, Dr Wagner in [place]. We discussed his case, he felt that is he was referred to him he would likely refer him to specialist in [facility] as they have many more resources and avenues of treatment than anyone in [place] has. He recommended continuing PPI BID, and stressed this needs to be take 1 hour prior to breakfast and supper. He also recommended improved diabetic control as this would likely help the mild gastroparesis noted on gastric emptying study from February. Severe gastris could be cause of worsening gastroparesis and making the overall diagnoses of gastroparesis tough. He also recommended dietary changes. I spoke with Waqas regarding these recommendations. He will start taking PP 1 hour prior to large meals as well as continue Carafate. He will also continue to treat DM and I urged the necessity to be complaint with insulin all the time to improve control and ultimately improve gastric motility. We also discussed his use of marijuana, he reports he has used this only 3 times in the last year. We discussed how this can worsening nausea, vomiting and abdominal pain and he should refrain from using this. He was also educated on dietary changes, including restricting acidic foods including coffee and spicy foods. He was provided [facility] dietary list for gastroparesis. He will be discharged home today as he is improved and tolerating diet well. He Will be contacted by [facility] for referral appointment. He is to follow up with Dr Infante as previously scheduled April 28. He is to return to ED or clinic if concerns should arise. - General Info Date of Service: 04/25/19 Admission Dx/Problem (Free Text: N/V, abdominal pain Subjective Update: Eating breakfast this morning, feel ok. No other concerns. No chest pain or palpitations. No abdominal pain. No black or bloody BMs. NO nausea Functional Status: Reports: Pain Controlled, Tolerating Diet, Ambulating, Urinating - Review of Systems General: Reports: No Symptoms. Denies: Weakness, Fatigue Pulmonary: Reports: No Symptoms. Denies: Shortness of Breath Cardiovascular: Reports: No Symptoms. Denies: Chest Pain Gastrointestinal: Reports: No Symptoms. Denies: Abdominal Pain, Nausea, Vomiting Genitourinary: Reports: No Symptoms. Denies: Dysuria, Frequency Musculoskeletal: Reports: No Symptoms Skin: Reports: No Symptoms Neurological: Reports: No Symptoms Psychiatric: Reports: No Symptoms - Patient Data Vitals - Most Recent: Last Vital Signs Temp 98.4 F 04/25/19 07:25 Pulse 99 04/25/19 07:25 Resp 18 04/25/19 07:25 BP 141/93 H 04/25/19 07:25 Pulse Ox 98 04/25/19 07:25 Weight - Most Recent: 74.888 kg I&O - Last 24 hours: Intake & Output 04/24/19 04/25/19 04/25/19 22:59 06:59 14:59 Intake Total 1970 362 Output Total 1200 Balance 770 362 Lab Results - Last 24 hrs: Laboratory Results - last 24 hr 04/23/19 04/24/19 04/24/19 Range/Units 21:29 11:55 16:42 WBC (4.0-11.0) K/uL RBC (4.50-5.90) M/uL Hgb (13.0-17.0) g/dL Hct (38.0-50.0) % MCV (80.0-98.0) fL MCH (27.0-32.0) pg MCHC (31.0-37.0) g/dL RDW Std Deviation (28.0-62.0) fl RDW Coeff of Dania (11.0-15.0) % Plt Count (150-400) K/uL MPV (7.40-12.00) fL Sodium (136-148) mmol/L Potassium (3.5-5.1) mmol/L Chloride (98-107) mmol/L Carbon Dioxide (21.0-32.0) mmol/L BUN (7.0-18.0) mg/dL Creatinine (0.8-1.3) mg/dL Est Cr Clr Drug Dosing mL/min Estimated GFR (MDRD) ml/min Glucose (74-106) mg/dL POC Glucose 266 H 216 H 286 H (60-110) mg/dL Calcium (8.5-10.1) mg/dL 04/25/19 04/25/19 04/25/19 Range/Units 03:59 05:20 05:20 WBC 8.75 (4.0-11.0) K/uL RBC 4.29 L (4.50-5.90) M/uL Hgb 9.8 L (13.0-17.0) g/dL Hct 29.2 L (38.0-50.0) % MCV 68.1 L (80.0-98.0) fL MCH 22.8 L (27.0-32.0) pg MCHC 33.6 (31.0-37.0) g/dL RDW Std Deviation 40.6 (28.0-62.0) fl RDW Coeff of Dania 17 H (11.0-15.0) % Plt Count 317 (150-400) K/uL MPV 10.60 (7.40-12.00) fL Sodium 138 (136-148) mmol/L Potassium 3.8 (3.5-5.1) mmol/L Chloride 105 (98-107) mmol/L Carbon Dioxide 22.0 (21.0-32.0) mmol/L BUN 18 (7.0-18.0) mg/dL Creatinine 1.8 H (0.8-1.3) mg/dL Est Cr Clr Drug Dosing 58.37 mL/min Estimated GFR (MDRD) 52.9 ml/min Glucose 329 H (74-106) mg/dL POC Glucose 366 H (60-110) mg/dL Calcium 8.1 L (8.5-10.1) mg/dL Med Orders - Current: Current Medications Amlodipine Besylate (Norvasc) 10 mg PO BEDTIME [facility] Doxazosin Mesylate (Cardura) 2 mg PO BEDTIME [facility] Enalapril Maleate (Vasotec) 40 mg PO BEDTIME [facility] Last Admin: 04/24/19 20:08 Dose: 40 mg Hydralazine HCl (Apresoline) 25 mg PO TID [facility] Last Admin: 04/25/19 06:50 Dose: 25 mg Hydrochlorothiazide (Hydrochlorothiazide) 25 mg PO DAILY [facility] Last Admin: 04/25/19 08:11 Dose: 25 mg Sodium Chloride (Normal Saline) 1,000 mls @ 125 mls/hr IV ASDIRECTED [facility] Last Admin: 04/25/19 07:25 Dose: 125 mls/hr Insulin Aspart (Novolog) 0 unit SUBCUT TIDAC [facility]; Protocol Last Admin: 04/25/19 07:32 Dose: 6 units Ketorolac Tromethamine (Toradol) 15 mg IVPUSH Q6H PRN PRN Reason: Pain Stop: 04/29/19 09:31 Last Admin: 04/24/19 09:48 Dose: 15 mg Lorazepam (Ativan) 1 mg IVPUSH Q8H PRN PRN Reason: Anxiety Last Admin: 04/24/19 23:43 Dose: 1 mg Metoclopramide HCl (Reglan) 10 mg PO TIDAC [facility] Ondansetron HCl (Zofran) 4 mg IVPUSH Q4H PRN PRN Reason: Nausea Last Admin: 04/24/19 08:12 Dose: 4 mg Pantoprazole Sodium (Protonix) 40 mg PO BID [facility] Last Admin: 04/25/19 08:11 Dose: 40 mg Promethazine HCl (Phenergan) 25 mg IM Q6H PRN PRN Reason: Nausea Sodium Chloride (Saline Flush) 10 ml FLUSH ASDIRECTED PRN PRN Reason: Keep Vein Open Sodium Chloride (Saline Flush) 2.5 ml FLUSH ASDIRECTED PRN PRN Reason: Keep Vein Open Spironolactone (Aldactone) 25 mg PO DAILY [facility] Last Admin: 04/25/19 08:11 Dose: 25 mg Sucralfate (Carafate) 1 gm PO QIDACANDBED [facility] Discontinued Medications Diphenhydramine HCl (Benadryl) 50 mg IVPUSH ONETIME ONE Stop: 04/23/19 21:39 Last Admin: 04/23/19 21:57 Dose: 50 mg Hydralazine HCl (Apresoline) 10 mg IVPUSH ONETIME ONE Stop: 04/23/19 22:50 Last Admin: 04/23/19 22:57 Dose: 10 mg Sodium Chloride (Normal Saline) 1,000 mls @ 999 mls/hr IV STAT ONE Stop: 04/23/19 22:38 Last Admin: 04/23/19 21:43 Dose: 999 mls/hr Sodium Chloride (Normal Saline) Confirm Administered Dose 20 mls @ as directed .ROUTE .STK-MED ONE Stop: 04/23/19 21:50 Last Admin: 04/23/19 22:01 Dose: Not Given Insulin Aspart (Novolog) 4 unit SUBCUT NOW STA Stop: 04/24/19 17:53 Last Admin: 04/24/19 18:21 Dose: 4 units Insulin Aspart (Novolog) 5 unit SUBCUT ONETIME ONE Stop: 04/25/19 04:09 Last Admin: 04/25/19 04:28 Dose: 5 units Lorazepam (Ativan) 1 mg IVPUSH ONETIME ONE Stop: 04/23/19 21:39 Last Admin: 04/23/19 21:58 Dose: 1 mg Metoclopramide HCl (Reglan) 10 mg IV ONETIME ONE Stop: 04/23/19 21:39 Last Admin: 04/23/19 21:54 Dose: 10 mg Metoclopramide HCl (Reglan) 5 mg PO TIDAC [facility] Last Admin: 04/25/19 06:50 Dose: 5 mg Non-Formulary Medication (Amlodipine) 10 mg PO BEDTIME [facility] Last Admin: 04/24/19 21:52 Dose: 10 mg Non-Formulary Medication (Doxazosin) 2 mg PO BEDTIME [facility] Last Admin: 04/24/19 21:52 Dose: 2 mg Pantoprazole Sodium (Protonix Iv) 80 mg IVPUSH .BOLUS ONE Stop: 04/23/19 21:39 Last Admin: 04/23/19 22:00 Dose: 80 mg Sodium Chloride (Normal Saline) 20 ml FLUSH ONETIME ONE Stop: 04/23/19 21:57 Last Admin: 04/23/19 21:59 Dose: 20 ml - Exam General: Reports: Alert, Oriented, Cooperative, No Acute Distress Lungs: Reports: Clear to Auscultation, Normal Respiratory Effort Cardiovascular: Reports: Regular Rate, Regular Rhythm GI/Abdominal Exam: Normal Bowel Sounds, Soft, Non-Tender Back Exam: Reports: Normal Inspection, Full Range of Motion Extremities: Normal Inspection Wound/Incisions: Reports: Healing Well Neurological: Reports: No New Focal Deficit Psy/Mental Status: Reports: Alert, Normal Affect, Normal Mood <Beck Jeffery - Last Filed: 04/25/19 19:46> - Patient Data Vitals - Most Recent: Last Vital Signs Temp 37.1 C 04/25/19 11:51 Pulse 96 04/25/19 11:51 Resp 18 04/25/19 11:51 BP 150/91 H 04/25/19 12:26 Pulse Ox 98 04/25/19 11:51 I&O - Last 24 hours: Intake & Output 04/25/19 04/25/19 04/25/19 06:59 14:59 22:59 Intake Total 1970 2093 Output Total 1200 950 Balance 770 1143 Lab Results - Last 24 hrs: Laboratory Results - last 24 hr 04/23/19 04/25/19 04/25/19 Range/Units 21:29 03:59 05:20 WBC 8.75 (4.0-11.0) K/uL RBC 4.29 L (4.50-5.90) M/uL Hgb 9.8 L (13.0-17.0) g/dL Hct 29.2 L (38.0-50.0) % MCV 68.1 L (80.0-98.0) fL MCH 22.8 L (27.0-32.0) pg MCHC 33.6 (31.0-37.0) g/dL RDW Std Deviation 40.6 (28.0-62.0) fl RDW Coeff of Dania 17 H (11.0-15.0) % Plt Count 317 (150-400) K/uL MPV 10.60 (7.40-12.00) fL Sodium (136-148) mmol/L Potassium (3.5-5.1) mmol/L Chloride (98-107) mmol/L Carbon Dioxide (21.0-32.0) mmol/L BUN (7.0-18.0) mg/dL Creatinine (0.8-1.3) mg/dL Est Cr Clr Drug Dosing mL/min Estimated GFR (MDRD) ml/min Glucose (74-106) mg/dL POC Glucose 266 H 366 H (60-110) mg/dL Calcium (8.5-10.1) mg/dL 04/25/19 04/25/19 04/25/19 Range/Units 05:20 06:54 11:11 WBC (4.0-11.0) K/uL RBC (4.50-5.90) M/uL Hgb (13.0-17.0) g/dL Hct (38.0-50.0) % MCV (80.0-98.0) fL MCH (27.0-32.0) pg MCHC (31.0-37.0) g/dL RDW Std Deviation (28.0-62.0) fl RDW Coeff of Dania (11.0-15.0) % Plt Count (150-400) K/uL MPV (7.40-12.00) fL Sodium 138 (136-148) mmol/L Potassium 3.8 (3.5-5.1) mmol/L Chloride 105 (98-107) mmol/L Carbon Dioxide 22.0 (21.0-32.0) mmol/L BUN 18 (7.0-18.0) mg/dL Creatinine 1.8 H (0.8-1.3) mg/dL Est Cr Clr Drug Dosing 58.37 mL/min Estimated GFR (MDRD) 52.9 ml/min Glucose 329 H (74-106) mg/dL POC Glucose 218 H 112 H (60-110) mg/dL Calcium 8.1 L (8.5-10.1) mg/dL Med Orders - Current: Current Medications Discontinued Medications Amlodipine Besylate (Norvasc) 10 mg PO BEDTIME [facility] Amlodipine Besylate (Norvasc) 10 mg PO .STK-MED ONE Stop: 04/24/19 21:53 Diphenhydramine HCl (Benadryl) 50 mg IVPUSH ONETIME ONE Stop: 04/23/19 21:39 Last Admin: 04/23/19 21:57 Dose: 50 mg Doxazosin Mesylate (Cardura) 2 mg PO BEDTIME [facility] Doxazosin Mesylate (Cardura) 2 mg PO .STK-MED ONE Stop: 04/24/19 21:53 Enalapril Maleate (Vasotec) 40 mg PO BEDTIME [facility] Last Admin: 04/24/19 20:08 Dose: 40 mg Hydralazine HCl (Apresoline) 10 mg IVPUSH ONETIME ONE Stop: 04/23/19 22:50 Last Admin: 04/23/19 22:57 Dose: 10 mg Hydralazine HCl (Apresoline) 25 mg PO TID [facility] Last Admin: 04/25/19 12:26 Dose: 25 mg Hydrochlorothiazide (Hydrochlorothiazide) 25 mg PO DAILY [facility] Last Admin: 04/25/19 08:11 Dose: 25 mg Sodium Chloride (Normal Saline) 1,000 mls @ 999 mls/hr IV STAT ONE Stop: 04/23/19 22:38 Last Admin: 04/23/19 21:43 Dose: 999 mls/hr Sodium Chloride (Normal Saline) Confirm Administered Dose 20 mls @ as directed .ROUTE .STK-MED ONE Stop: 04/23/19 21:50 Last Admin: 04/23/19 22:01 Dose: Not Given Sodium Chloride (Normal Saline) 1,000 mls @ 125 mls/hr IV ASDIRECTED [facility] Last Admin: 04/25/19 07:25 Dose: 125 mls/hr Insulin Aspart (Novolog) 0 unit SUBCUT TIDAC [facility]; Protocol Last Admin: 04/25/19 11:28 Dose: Not Given Insulin Aspart (Novolog) 4 unit SUBCUT NOW STA Stop: 04/24/19 17:53 Last Admin: 04/24/19 18:21 Dose: 4 units Insulin Aspart (Novolog) 5 unit SUBCUT ONETIME ONE Stop: 04/25/19 04:09 Last Admin: 04/25/19 04:28 Dose: 5 units Ketorolac Tromethamine (Toradol) 15 mg IVPUSH Q6H PRN PRN Reason: Pain Stop: 04/29/19 09:31 Last Admin: 04/24/19 09:48 Dose: 15 mg Lorazepam (Ativan) 1 mg IVPUSH ONETIME ONE Stop: 04/23/19 21:39 Last Admin: 04/23/19 21:58 Dose: 1 mg Lorazepam (Ativan) 1 mg IVPUSH Q8H PRN PRN Reason: Anxiety Last Admin: 04/24/19 23:43 Dose: 1 mg Metoclopramide HCl (Reglan) 10 mg IV ONETIME ONE Stop: 04/23/19 21:39 Last Admin: 04/23/19 21:54 Dose: 10 mg Metoclopramide HCl (Reglan) 5 mg PO TIDAC [facility] Last Admin: 04/25/19 06:50 Dose: 5 mg Metoclopramide HCl (Reglan) 10 mg PO TIDAC [facility] Last Admin: 04/25/19 11:40 Dose: Not Given Metoclopramide HCl (Reglan) 5 mg PO TIDAC [facility] Last Admin: 04/25/19 11:49 Dose: 5 mg Non-Formulary Medication (Amlodipine) 10 mg PO BEDTIME [facility] Last Admin: 04/24/19 21:52 Dose: 10 mg Non-Formulary Medication (Doxazosin) 2 mg PO BEDTIME [facility] Last Admin: 04/24/19 21:52 Dose: 2 mg Ondansetron HCl (Zofran) 4 mg IVPUSH Q4H PRN PRN Reason: Nausea Last Admin: 04/24/19 08:12 Dose: 4 mg Pantoprazole Sodium (Protonix Iv) 80 mg IVPUSH .BOLUS ONE Stop: 04/23/19 21:39 Last Admin: 04/23/19 22:00 Dose: 80 mg Pantoprazole Sodium (Protonix) 40 mg PO BID [facility] Last Admin: 04/25/19 08:11 Dose: 40 mg Promethazine HCl (Phenergan) 25 mg IM Q6H PRN PRN Reason: Nausea Sodium Chloride (Saline Flush) 10 ml FLUSH ASDIRECTED PRN PRN Reason: Keep Vein Open Sodium Chloride (Saline Flush) 2.5 ml FLUSH ASDIRECTED PRN PRN Reason: Keep Vein Open Sodium Chloride (Normal Saline) 20 ml FLUSH ONETIME ONE Stop: 04/23/19 21:57 Last Admin: 04/23/19 21:59 Dose: 20 ml Spironolactone (Aldactone) 25 mg PO DAILY [facility] Last Admin: 04/25/19 08:11 Dose: 25 mg Sucralfate (Carafate) 1 gm PO QIDACANDBED [facility] Last Admin: 04/25/19 11:25 Dose: 1 gm - Free Text/Narrative Note: I have evaluated the patient. I have discussed findings and treatment plan with resident. I agree with the assessment and plan outlined in the following note.
[2019-04-25] MEDS ORDERED: Sucralfate 1 GM Tab PO SCH (11:30)
[2019-04-25] MEDS ORDERED: Metoclopramide 5 MG Tab PO SCH (11:33)
[2019-04-25 11:55] VITALS: BP 150/91; PULSE 96
== END 2019-04-25 12:40 | disposition home or self-care (01) ==
LOC: MW.ED 21:21 → MW.MS 23:12
PROVIDERS: ADMIT Internal Medicine; ATTEND Internal Medicine
DX: E10.43 Type 1 diabetes mellitus with diabetic autonomic (poly)neuropathy (principal); K31.84 Gastroparesis; K21.9 Gastro-esophageal reflux disease without esophagitis; K27.9 Peptic ulcer, site unspecified, unspecified as acute or chronic, without hemorrhage or perforation; I12.9 Hypertensive chronic kidney disease with stage 1 through stage 4 chronic kidney disease, or unspecified chronic kidney disease; E10.22 Type 1 diabetes mellitus with diabetic chronic kidney disease; N18.9 Chronic kidney disease, unspecified; Z79.899 Other long term (current) drug therapy; Z79.4 Long term (current) use of insulin; Z79.82 Long term (current) use of aspirin; Z89.511 Acquired absence of right leg below knee; Z91.013 Allergy to seafood; Z88.0 Allergy status to penicillin; Z88.8 Allergy status to other drugs, medicaments and biological substances; Z91.018 Allergy to other foods; Z87.891 Personal history of nicotine dependence; E10.21 Type 1 diabetes mellitus with diabetic nephropathy; F41.9 Anxiety disorder, unspecified; Z86.14 Personal history of Methicillin resistant Staphylococcus aureus infection; Z91.048 Other nonmedicinal substance allergy status
CPT/HCPCS: 36415; 74022; 74176; 80048; 80053; 80305; 81001; 82150; 82803; 82962; 83690; 85025; 85027; 93005; 96361; 96374; 96375; 96376; 99285; A9270; C9113; G0378; J0360; J1200; J1815; J1885; J2060; J2405; J2765; J7040; 99283

== ENCOUNTER 2019-05-19 08:58 | Emergency (ER) | payer MEDICAID ==
--- NOTE | 2019-05-19 09:15 | EDM.PDOC ---
ED HPI GENERAL MEDICAL PROBLEM - General Chief Complaint: Skin Complaint Stated Complaint: INFECTION ON KNEE Time Seen by Provider: 05/19/19 09:08 - History of Present Illness INITIAL COMMENTS - FREE TEXT/NARRATIVE: HISTORY AND PHYSICAL: History of present illness: Patient 34-year-old male well-known to emergency department presents with a concern of recent injury to his left knee he had a fall sustained an abrasion he 's been taking care of this with local wound care was concern of evaluation for early infection there's been no fever chills nausea vomiting or other complaints and actually patient looks wonderful relative to prior presentations. Review of systems: As per history of present illness and below otherwise all systems reviewed and negative. Past medical history: As per history of present illness and as reviewed below otherwise noncontributory. Surgical history: As per history of present illness and as reviewed below otherwise noncontributory. Social history: No reported history of drug or alcohol abuse. Family history: As per history of present illness and as reviewed below otherwise noncontributory. Physical exam: HEENT: Atraumatic, normocephalic, pupils reactive, negative for conjunctival pallor or scleral icterus, mucous membranes moist, throat clear, neck supple, nontender, trachea midline. Lungs: Clear to auscultation, breath sounds equal bilaterally, chest nontender. Heart: S1S2, regular, negative for clicks, rubs, or JVD. Abdomen: Soft, nondistended, nontender. Negative for masses or hepatosplenomegaly. Negative for costovertebral tenderness. Pelvis: Stable nontender. Genitourinary: Deferred. Rectal: Deferred. Extremities: Abrasion noted left knee with minimal erythema no significant effusion neurovascular exam unremarkable Neuro: Awake, alert, oriented. Nonfocal exam Diagnostics: X-ray left knee Therapeutics: None Impression: #1 knee injury abrasion/contusion Definitive disposition and diagnosis as appropriate pending reevaluation and review of above. - Related Data Allergies Allergy/AdvReac Type Severity Reaction Status Date / Time shrimp Allergy Severe Swelling Verified 05/19/19 09:09 iodine Allergy Unknown Anaphylactic Verified 05/19/19 09:09 Shock Penicillins Allergy Unknown Anaphylactic Verified 05/19/19 09:09 Shock shellfish derived Allergy Anaphylactic Verified 05/19/19 09:09 Shock gluten Allergy Unknown Muscle Uncoded 05/19/19 09:09 Aches Home Meds: Home Meds Doxazosin [Cardura] 2 mg PO BEDTIME 09/25/17 [History] Enalapril [Vasotec] 40 mg PO BEDTIME 09/25/17 [History] Torsemide 20 mg PO DAILY 09/25/17 [History] amLODIPine Besylate [Amlodipine Besylate] 10 mg PO BEDTIME 09/25/17 [History] Ferrous Sulfate 324 mg PO DAILY 01/20/18 [History] hydrALAZINE [Apresoline] 25 mg PO TID 30 Days #90 tablet 01/29/18 [Rx] Insulin Glarg,Human.Rec.Analog [Lantus Solostar] 35 units SUBCUT BEDTIME [History] Insulin Aspart [NovoLOG] 0 unit SUBCUT ASDIRECTED PRN 05/23/18 [History] Spironolactone [Aldactone] 25 mg PO DAILY 12/14/18 [History] hydroCHLOROthiazide [Hydrochlorothiazide] 25 mg PO DAILY 12/14/18 [History] Aspirin [Halfprin] 81 mg PO DAILY #30 tab.ec 12/15/18 [Rx] atorvaSTATin [Lipitor] 80 mg PO BEDTIME #60 tablet 12/15/18 [Rx] Metoclopramide [Reglan] 5 mg PO TIDAC #90 tab 03/11/19 [Rx] Sucralfate [Carafate] 1 gm PO QIDACANDBED #120 ml 04/05/19 [Rx] Pantoprazole Sodium [Protonix] 40 mg PO BID #60 tablet. 04/25/19 [Rx] Past Medical History - Past Health History Medical/Surgical History: Denies Medical/Surgical History HEENT History: Reports: Impaired Vision Other HEENT History: blind right eye Cardiovascular History: Reports: Hypertension Respiratory History: Reports: None Gastrointestinal History: Reports: Gastritis, GERD, Hiatal Hernia, Other (See Below) Other Gastrointestinal History: h/o gastric ulcers, h/o hiatal hernia; gastroparesis Genitourinary History: Reports: Chronic Renal Insuffiency, Diabetic Nephropathy Musculoskeletal History: Reports: Amputation Neurological History: Reports: Neuropathy, Peripheral Other Neuro History: stroke 3 months ago Psychiatric History: Reports: Anxiety Endocrine/Metabolic History: Reports: Diabetes, Type I Other Endocrine/Metabolic History: brittle diabetic. History of hyperkalemia and DKA Hematologic History: Reports: Anemia Immunologic History: Reports: None Oncologic (Cancer) History: Reports: None Dermatologic History: Reports: Other (See Below) Other Dermatologic History: diabetic foot ulcers - Infectious Disease History Infectious Disease History: Reports: Chicken Pox, MRSA Other Infectious Disease History: 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 - Past Surgical History Head Surgeries/Procedures: Reports: None Social & Family History - Family History Family Medical History: Noncontributory Cardiac: Reports: High Cholesterol, Hypertension OBGYN: Reports: Neurological: Reports: None - Caffeine Use Caffeine Use: Reports: Coffee, Energy Drinks, Soda Other Caffeine Use: daily - Living Situation & Occupation Living situation: Reports: Single Occupation: Employed (Currently unemployed.) ED ROS GENERAL - Review of Systems Review Of Systems: ROS reveals no pertinent complaints other than HPI. ED EXAM, SKIN/RASH Exam: See Below (See dictation) Course - Orders/Labs/Meds Orders: Active Orders 24 hr Category Date Time Status Knee 3V Lt [CR] Stat Exams 05/19/19 09:10 Ordered Departure - Departure Time of Disposition: 09:14 Disposition: Home, Self-Care 01 Condition: Good Clinical Impression: Encounter for medical screening examination, Knee injury - Discharge Information Referrals: PCP,Unknown [Primary Care Provider] - Additional Instructions: The following information is given to patients seen in the emergency department who are being discharged to home. This information is to outline your options for follow-up care. We provide all patients seen in our emergency department with a follow-up referral. The need for follow-up, as well as the timing and circumstances, are variable depending upon the specifics of your emergency department visit. If you don't have a primary care physician on staff, we will provide you with a referral. We always advise you to contact your personal physician following an emergency department visit to inform them of the circumstance of the visit and for follow-up with them and/or the need for any referrals to a consulting specialist. The emergency department will also refer you to a specialist when appropriate. This referral assures that you have the opportunity for followup care with a specialist. All of these measure are taken in an effort to provide you with optimal care, which includes your followup. Under all circumstances we always encourage you to contact your private physician who remains a resource for coordinating your care. When calling for followup care, please make the office aware that this follow-up is from your recent emergency room visit. If for any reason you are refused follow-up, please contact the [facility] emergency department at and asked to speak to the emergency department charge nurse. Bactrim as prescribed continue wound care as discussed follow-up primary medical doctor as needed as discussed and return as needed as discussed - My Orders Last 24 Hours: My Active Orders 05/19/19 09:10 Knee 3V Lt [CR] Stat - Assessment/Plan Last 24 Hours: My Active Orders 05/19/19 09:10 Knee 3V Lt [CR] Stat
--- NOTE | 2019-05-19 10:25 | CR ---
INDICATION: Fell and scraped knee on carpet several days ago. Now concern for infection. TECHNIQUE: Three views of the left knee. COMPARISON: None. FINDINGS: Mild prepatellar soft tissue swelling. No foreign body, joint effusion or fracture. Joint spaces normal. IMPRESSION: Mild prepatellar soft tissue swelling which may be due to any combination of posttraumatic edema/hemorrhage, cellulitis and bursitis Dictated by Daniel Sepulveda MD @ May 19 2019 10:21AM Signed by Dr. Daniel Sepulveda @ May 19 2019 10:24AM
[2019-05-19 10:48] VITALS: BP 159/105
== END 2019-05-19 10:45 | disposition home or self-care (01) ==
LOC: MW.ED 08:58
DX: S80.02XA Contusion of left knee, initial encounter (principal); I12.9 Hypertensive chronic kidney disease with stage 1 through stage 4 chronic kidney disease, or unspecified chronic kidney disease; E10.22 Type 1 diabetes mellitus with diabetic chronic kidney disease; N18.9 Chronic kidney disease, unspecified; F41.9 Anxiety disorder, unspecified; K21.9 Gastro-esophageal reflux disease without esophagitis; Z88.0 Allergy status to penicillin; Z91.013 Allergy to seafood; Z91.048 Other nonmedicinal substance allergy status; Z79.82 Long term (current) use of aspirin; Z79.899 Other long term (current) drug therapy; W19.XXXA Unspecified fall, initial encounter
CPT/HCPCS: 73562-26-LT; 73562-LT; 99283-25

== ENCOUNTER 2019-06-17 13:00 | Inpatient (IN) | payer MEDICAID ==
[2019-06-17] MEDS ORDERED: Sodium Chloride 0.9% 10 ML Syringe FLUSH PRN (13:04)
[2019-06-17] MEDS ORDERED: Sodium Chloride 0.9% 2.5 ML Syringe FLUSH PRN (13:04)
[2019-06-17] MEDS ORDERED: Ondansetron 4 MG/2 ML SDV IVPUSH ONE (13:04)
[2019-06-17] MEDS ORDERED: Pantoprazole 40 MG Vial IVPUSH ONE (13:04)
[2019-06-17] MEDS ORDERED: Sodium Chloride 0.9% 1,000 ML IV ONE ×2 (13:04→14:36)
[2019-06-17] MEDS ORDERED: LORazepam 2 MG/ML SDV IVPUSH ONE ×2 (13:05→16:44)
[2019-06-17] MEDS ORDERED: Sodium Chloride 0.9% 20 ML ONE (13:11)
--- NOTE | 2019-06-17 13:37 | EDM.PDOC ---
ED HPI GENERAL MEDICAL PROBLEM - General Chief Complaint: Gastrointestinal Problem Stated Complaint: ABDOMINAL PAIN, VOMITING BLOOD Time Seen by Provider: 06/17/19 13:03 Source of Information: Reports: Patient History Limitations: Reports: No Limitations - History of Present Illness INITIAL COMMENTS - FREE TEXT/NARRATIVE: History of present illness: []Patient is an insulin-dependent diabetic with history of gastroparesis, chronic pain poorly controlled diabetes comes in complaining of vomiting blood since last night. He denies any blood in his stools or black stools. Patient denies any fevers, chills and has been constipated. Review of systems: As per history of present illness and below otherwise all systems reviewed and negative. Past medical history: As per history of present illness and as reviewed below otherwise noncontributory. Surgical history: As per history of present illness and as reviewed below otherwise noncontributory. Social history: No reported history of drug or alcohol abuse. Family history: As per history of present illness and as reviewed below otherwise noncontributory. Physical exam: General: Well developed, well nourished in NAD HEENT: Atraumatic, normocephalic, pupils reactive, negative for conjunctival pallor or scleral icterus, mucous membranes moist, throat clear, neck supple, nontender, trachea midline. Lungs: Clear to auscultation, breath sounds equal bilaterally, chest nontender. Heart: S1S2, regular, negative for clicks, rubs, or JVD. Abdomen: NABS, Soft, nondistended, nontender. Negative for masses or hepatosplenomegaly. Negative for costovertebral tenderness. Pelvis: Stable nontender. Genitourinary: Deferred. Rectal: Deferred. Extremities: Atraumatic, negative for cords or calf pain. Neurovascular unremarkable. Neuro: Awake, alert, oriented. Cranial nerves II through XII unremarkable. Cerebellum unremarkable. Motor and sensory unremarkable throughout. Exam nonfocal. Skin:warm and dry Diagnostics: Bedside glucose, CBC, chemistry, ketones, ABG, Therapeutics: protonix, Zofran, Reglan, GI Cocktail, Ativan ED Course: glucose remained high over 500 while in ED Impression: uncontrolled diabetes, gastroparesis Prescriptions: prilosec, reglan Plan: admit for IVF and obs Definitive disposition and diagnosis as appropriate pending reevaluation and review of above. Abdominal Pain Score (Numeric/FACES): 10 - Related Data Allergies Allergy/AdvReac Type Severity Reaction Status Date / Time shrimp Allergy Severe Swelling Verified 06/17/19 13:04 iodine Allergy Unknown Anaphylactic Verified 06/17/19 13:04 Shock Penicillins Allergy Unknown Anaphylactic Verified 06/17/19 13:04 Shock shellfish derived Allergy Anaphylactic Verified 06/17/19 13:04 Shock gluten Allergy Unknown Muscle Uncoded 06/17/19 13:04 Aches Home Meds: Home Meds Doxazosin [Cardura] 2 mg PO BEDTIME 09/25/17 [History] Enalapril [Vasotec] 40 mg PO BEDTIME 09/25/17 [History] Torsemide 20 mg PO DAILY 09/25/17 [History] amLODIPine Besylate [Amlodipine Besylate] 10 mg PO BEDTIME 09/25/17 [History] Ferrous Sulfate 324 mg PO DAILY 01/20/18 [History] hydrALAZINE [Apresoline] 25 mg PO TID 30 Days #90 tablet 01/29/18 [Rx] Insulin Glarg,Human.Rec.Analog [Lantus Solostar] 35 units SUBCUT BEDTIME [History] Insulin Aspart [NovoLOG] 0 unit SUBCUT ASDIRECTED PRN 05/23/18 [History] Spironolactone [Aldactone] 25 mg PO DAILY 12/14/18 [History] hydroCHLOROthiazide [Hydrochlorothiazide] 25 mg PO DAILY 12/14/18 [History] Aspirin [Halfprin] 81 mg PO DAILY #30 tab.ec 12/15/18 [Rx] atorvaSTATin [Lipitor] 80 mg PO BEDTIME #60 tablet 12/15/18 [Rx] Metoclopramide [Reglan] 5 mg PO TIDAC #90 tab 03/11/19 [Rx] Sucralfate [Carafate] 1 gm PO QIDACANDBED #120 ml 04/05/19 [Rx] Pantoprazole Sodium [Protonix] 40 mg PO BID #60 tablet.dr 04/25/19 [Rx] Metoclopramide HCl [Reglan] 10 mg PO TID PRN #20 tablet 06/17/19 [Rx] Past Medical History - Past Health History Medical/Surgical History: Denies Medical/Surgical History HEENT History: Reports: Impaired Vision Other HEENT History: blind right eye Cardiovascular History: Reports: Hypertension Respiratory History: Reports: None Gastrointestinal History: Reports: Gastritis, GERD, Hiatal Hernia, Other (See Below) Other Gastrointestinal History: h/o gastric ulcers, h/o hiatal hernia; gastroparesis Genitourinary History: Reports: Chronic Renal Insuffiency, Diabetic Nephropathy Musculoskeletal History: Reports: Amputation Neurological History: Reports: Neuropathy, Peripheral Other Neuro History: stroke 3 months ago Psychiatric History: Reports: Anxiety Endocrine/Metabolic History: Reports: Diabetes, Type I Other Endocrine/Metabolic History: brittle diabetic. 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 - Past Surgical History Head Surgeries/Procedures: Reports: None Social & Family History - Family History Family Medical History: Noncontributory Cardiac: Reports: High Cholesterol, Hypertension OBGYN: Reports: Neurological: Reports: None - Tobacco Use Smoking Status *Q: Never Smoker - Caffeine Use Caffeine Use: Reports: None Other Caffeine Use: daily - Recreational Drug Use Recreational Drug Use: No - Living Situation & Occupation Living situation: Reports: Single Occupation: Employed (Currently unemployed.) ED ROS GENERAL - Review of Systems Review Of Systems: See Below ED EXAM, GI/ABD - Physical Exam Exam: See Below Course - Vital Signs Last Recorded V/S: Last Vital Signs Temp 97.6 F 06/17/19 17:20 Pulse 101 H 06/17/19 17:20 Resp 16 06/17/19 17:20 BP 212/122 H 06/17/19 17:20 Pulse Ox 98 06/17/19 17:20 - Orders/Labs/Meds Orders: Active Orders 24 hr Category Date Time Status Patient Status [ADT] Stat ADT 06/17/19 16:24 Active Blood Glucose Check, Bedside [RC] ONETIME Care 06/17/19 15:05 Active TYPE AND SCREEN [BBK] Stat Lab 06/17/19 13:04 Ordered Sodium Chloride 0.9% [Saline Flush] Med 06/17/19 13:04 Active 10 ml FLUSH ASDIRECTED PRN Sodium Chloride 0.9% [Saline Flush] Med 06/17/19 13:04 Active 2.5 ml FLUSH ASDIRECTED PRN Saline Lock Insert [OM.PC] Stat Oth 06/17/19 13:04 Ordered Medication Orders Sodium Chloride (Saline Flush) 10 ml FLUSH ASDIRECTED PRN PRN Reason: Keep Vein Open Sodium Chloride (Saline Flush) 2.5 ml FLUSH ASDIRECTED PRN PRN Reason: Keep Vein Open Labs: Laboratory Tests 06/17/19 06/17/19 06/17/19 Range/Units 13:46 13:46 15:20 WBC 10.91 (4.0-11.0) K/uL RBC 5.05 (4.50-5.90) M/uL Hgb 11.1 L (13.0-17.0) g/dL Hct 34.5 L (38.0-50.0) % MCV 68.3 L (80.0-98.0) fL MCH 22.0 L (27.0-32.0) pg MCHC 32.2 (31.0-37.0) g/dL RDW Std Deviation 40.5 (28.0-62.0) fl RDW Coeff of Dania 17 H (11.0-15.0) % Plt Count 193 (150-400) K/uL MPV 10.40 (7.40-12.00) fL Neut % (Auto) 76.7 (48.0-80.0) % Lymph % (Auto) 14.7 L (16.0-40.0) % [place] % (Auto) 5.1 (0.0-15.0) % Eos % (Auto) 3.0 (0.0-7.0) % Baso % (Auto) 0.5 (0.0-1.5) % Neut # (Auto) 8.4 H (1.4-5.7) K/uL Lymph # (Auto) 1.6 (0.6-2.4) K/uL [place] # (Auto) 0.6 (0.0-0.8) K/uL Eos # (Auto) 0.3 (0.0-0.7) K/uL Baso # (Auto) 0.1 (0.0-0.1) K/uL Nucleated RBC % 0.0 /100WBC Nucleated RBCs # 0 K/uL ABG pH (7.35-7.45) ABG pCO2 (35-45) mmHG ABG pO2 (75-100) mmHG ABG HCO3 (22-26) mEq/L ABG Total CO2 ABG Base Excess (-2.0-2.0) Sodium 138 (136-148) mmol/L Potassium 4.6 (3.5-5.1) mmol/L Chloride 104 (98-107) mmol/L Carbon Dioxide 21.5 (21.0-32.0) mmol/L BUN 33 H (7.0-18.0) mg/dL Creatinine 2.1 H (0.8-1.3) mg/dL Est Cr Clr Drug Dosing 43.33 mL/min Estimated GFR (MDRD) 44.3 ml/min Glucose 418 H (74-106) mg/dL Calcium 8.2 L (8.5-10.1) mg/dL Total Bilirubin 0.2 (0.2-1.0) mg/dL AST 34 (15-37) IU/L ALT 51 (14-63) IU/L Alkaline Phosphatase 137 H (46-116) U/L Total Protein 5.9 L (6.4-8.2) g/dL Albumin 2.6 L (3.4-5.0) g/dL Globulin 3.3 (2.6-4.0) g/dL Albumin/Globulin Ratio 0.8 L (0.9-1.6) Ketones NEGATIVE (NEG) 06/17/19 Range/Units 15:33 WBC (4.0-11.0) K/uL RBC (4.50-5.90) M/uL Hgb (13.0-17.0) g/dL Hct (38.0-50.0) % MCV (80.0-98.0) fL MCH (27.0-32.0) pg MCHC (31.0-37.0) g/dL RDW Std Deviation (28.0-62.0) fl RDW Coeff of Dania (11.0-15.0) % Plt Count (150-400) K/uL MPV (7.40-12.00) fL Neut % (Auto) (48.0-80.0) % Lymph % (Auto) (16.0-40.0) % [place] % (Auto) (0.0-15.0) % Eos % (Auto) (0.0-7.0) % Baso % (Auto) (0.0-1.5) % Neut # (Auto) (1.4-5.7) K/uL Lymph # (Auto) (0.6-2.4) K/uL [place] # (Auto) (0.0-0.8) K/uL Eos # (Auto) (0.0-0.7) K/uL Baso # (Auto) (0.0-0.1) K/uL Nucleated RBC % /100WBC Nucleated RBCs # K/uL ABG pH 7.397 (7.35-7.45) ABG pCO2 33 L (35-45) mmHG ABG pO2 100 (75-100) mmHG ABG HCO3 20 L (22-26) mEq/L ABG Total CO2 18.7 ABG Base Excess -3.9 L (-2.0-2.0) Sodium (136-148) mmol/L Potassium (3.5-5.1) mmol/L Chloride (98-107) mmol/L Carbon Dioxide (21.0-32.0) mmol/L BUN (7.0-18.0) mg/dL Creatinine (0.8-1.3) mg/dL Est Cr Clr Drug Dosing mL/min Estimated GFR (MDRD) ml/min Glucose (74-106) mg/dL Calcium (8.5-10.1) mg/dL Total Bilirubin (0.2-1.0) mg/dL AST (15-37) IU/L ALT (14-63) IU/L Alkaline Phosphatase (46-116) U/L Total Protein (6.4-8.2) g/dL Albumin (3.4-5.0) g/dL Globulin (2.6-4.0) g/dL Albumin/Globulin Ratio (0.9-1.6) Ketones (NEG) Meds: Medications Generic Name Dose Route Start Last Admin Trade Name Freq PRN Reason Stop Dose Admin Sodium Chloride 10 ml 06/17/19 13:04 Saline Flush FLUSH ASDIRECTED PRN Keep Vein Open Sodium Chloride 2.5 ml 06/17/19 13:04 Saline Flush FLUSH ASDIRECTED PRN Keep Vein Open Discontinued Medications Generic Name Dose Route Start Last Admin Trade Name Lynn PRN Reason Stop Dose Admin Al Hydroxide/Mg Hydroxide 15 0 ml 06/17/19 15:38 06/17/19 16:07 ml/ Lidocaine HCl 5 ml PO 06/17/19 15:39 1 each ONETIME ONE Administration Sodium Chloride 1,000 mls @ 999 mls/hr 06/17/19 13:04 06/17/19 13:21 Normal Saline IV 06/17/19 14:04 999 mls/hr .Bolus ONE Administration Sodium Chloride Confirm 06/17/19 13:11 06/17/19 13:39 Normal Saline Administered 06/17/19 13:12 20 mls/hr Dose Administration 20 mls @ as directed .ROUTE .STK-MED ONE Sodium Chloride 1,000 mls @ 999 mls/hr 06/17/19 14:36 06/17/19 14:57 Normal Saline IV 06/17/19 15:36 999 mls/hr .Bolus ONE Administration Insulin Human Regular 10 unit 06/17/19 15:04 06/17/19 15:17 Novolin R SUBCUT 06/17/19 15:05 10 unit ONETIME ONE Administration Protocol Insulin Human Regular 15 unit 06/17/19 16:10 06/17/19 16:16 Novolin R SUBCUT 06/17/19 16:11 15 unit ONETIME ONE Administration Protocol Lorazepam 1 mg 06/17/19 13:05 06/17/19 13:19 Ativan IVPUSH 06/17/19 13:06 1 mg ONETIME ONE Administration Lorazepam 1 mg 06/17/19 16:44 06/17/19 17:02 Ativan IVPUSH 06/17/19 16:45 1 mg ONETIME ONE Administration Metoclopramide HCl 10 mg 06/17/19 14:27 06/17/19 14:58 Reglan IV 06/17/19 14:28 10 mg ONETIME ONE Administration Metoclopramide HCl 10 mg 06/17/19 15:38 06/17/19 15:47 Reglan IV 06/17/19 15:39 10 mg ONETIME ONE Administration Ondansetron HCl 4 mg 06/17/19 13:04 06/17/19 13:25 Zofran IVPUSH 06/17/19 13:05 4 mg ONETIME ONE Administration Pantoprazole Sodium 80 mg 06/17/19 13:04 06/17/19 13:25 Protonix Iv IVPUSH 06/17/19 13:05 80 mg .BOLUS ONE Administration Departure - Departure Time of Disposition: 17:30 Disposition: Home, Self-Care 01 Condition: Good Clinical Impression: Gastroparesis Abdominal pain Qualifiers: Abdominal location: upper abdomen, unspecified Qualified Code(s): R10.10 - Upper abdominal pain, unspecified - Discharge Information *PRESCRIPTION DRUG MONITORING PROGRAM REVIEWED*: No *COPY OF PRESCRIPTION DRUG MONITORING REPORT IN PATIENT IVELISSE: No - My Orders Last 24 Hours: My Active Orders 06/17/19 13:04 TYPE AND SCREEN [BBK] Stat Sodium Chloride 0.9% [Saline Flush] 10 ml FLUSH ASDIRECTED PRN Sodium Chloride 0.9% [Saline Flush] 2.5 ml FLUSH ASDIRECTED PRN Saline Lock Insert [OM.PC] Stat 06/17/19 15:05 Blood Glucose Check, Bedside [RC] ONETIME 06/17/19 16:24 Patient Status [ADT] Stat - Assessment/Plan Last 24 Hours: My Active Orders 06/17/19 13:04 TYPE AND SCREEN [BBK] Stat Sodium Chloride 0.9% [Saline Flush] 10 ml FLUSH ASDIRECTED PRN Sodium Chloride 0.9% [Saline Flush] 2.5 ml FLUSH ASDIRECTED PRN Saline Lock Insert [OM.PC] Stat 06/17/19 15:05 Blood Glucose Check, Bedside [RC] ONETIME 06/17/19 16:24 Patient Status [ADT] Stat
[2019-06-17 14:26] LABS: CARBON DIOXIDE,CO2 21.5 mmol/L (21.0-32.0); POTASSIUM,K 4.6 mmol/L (3.5-5.1)
[2019-06-17] MEDS ORDERED: Metoclopramide 10 MG/2 ML SDV IV ONE ×2 (14:27→15:38)
[2019-06-17] MEDS ORDERED: Insulin Regular, Human 100 Units/ML 10 ML Vial SUBCUT ONE ×2 (15:04→16:10)
[2019-06-17] MEDS ORDERED: Alum Hydrox/Mag Hydrox/Simeth 15 ML, Lidocaine 2% 5 ML PO ONE ×2 (15:38)
--- NOTE | 2019-06-17 18:53 | PCM.HP.2 ---
H&P History of Present Illness - General Date of Service: 06/17/19 Admit Problem/Dx: Admission Diagnosis/Problem Admission Diagnosis/Problem Gastroparesis - History of Present Illness Initial Comments - Free Text/Narative: 34 yo male with pmh of DM and gastroparesis with multiple admissions for chronic abdominal pain. Patient currently is resting in room after he received ativan in the ED. He is not speaking much to me which is normal behavior for him. Abdominal Pain Score (Numeric/FACES): 10 - Related Data Allergies/Adverse Reactions: Allergies Allergy/AdvReac Type Severity Reaction Status Date / Time shrimp Allergy Severe Swelling Verified 06/18/19 01:34 iodine Allergy Unknown Anaphylactic Verified 06/18/19 01:34 Shock Penicillins Allergy Unknown Anaphylactic Verified 06/18/19 01:34 Shock shellfish derived Allergy Anaphylactic Verified 06/18/19 01:34 Shock gluten Allergy Unknown Muscle Uncoded 06/18/19 01:34 Aches Home Medications: Home Meds Doxazosin [Cardura] 4 mg PO BEDTIME 09/25/17 [History] Enalapril [Vasotec] 40 mg PO BEDTIME 09/25/17 [History] Torsemide 20 mg PO DAILY 09/25/17 [History] amLODIPine Besylate [Amlodipine Besylate] 10 mg PO BEDTIME 09/25/17 [History] Ferrous Sulfate 324 mg PO DAILY 01/20/18 [History] hydrALAZINE [Apresoline] 25 mg PO TID 30 Days #90 tablet 01/29/18 [Rx] Insulin Glarg,Human.Rec.Analog [Lantus Solostar] 35 units SUBCUT BEDTIME [History] Insulin Aspart [NovoLOG] 0 unit SUBCUT ASDIRECTED PRN 05/23/18 [History] Spironolactone [Aldactone] 25 mg PO DAILY 12/14/18 [History] hydroCHLOROthiazide [Hydrochlorothiazide] 25 mg PO DAILY 12/14/18 [History] Aspirin [Halfprin] 81 mg PO DAILY #30 tab.ec 12/15/18 [Rx] Sucralfate [Carafate] 1 gm PO QIDACANDBED #120 ml 04/05/19 [Rx] Metoclopramide HCl [Reglan] 10 mg PO TID PRN #20 tablet 06/17/19 [Rx] Metoclopramide [Reglan] 10 mg PO TIDAC PRN 06/17/19 [History] Metoprolol Succinate 2 tab PO DAILY 06/17/19 [History] Pantoprazole Sodium [Protonix] 40 mg PO DAILY 06/17/19 [History] atorvaSTATin [Lipitor] 80 mg PO BEDTIME 06/17/19 [History] Past Medical History - Past Health History Medical/Surgical History: Denies Medical/Surgical History HEENT History: Reports: Impaired Vision Other HEENT History: blind right eye Cardiovascular History: Reports: Hypertension Respiratory History: Reports: None Gastrointestinal History: Reports: Gastritis, GERD, Hiatal Hernia, Other (See Below) Other Gastrointestinal History: h/o gastric ulcers, h/o hiatal hernia; gastroparesis Genitourinary History: Reports: Chronic Renal Insuffiency, Diabetic Nephropathy Musculoskeletal History: Reports: Amputation Neurological History: Reports: Neuropathy, Peripheral Other Neuro History: stroke 3 months ago Psychiatric History: Reports: Anxiety Endocrine/Metabolic History: Reports: Diabetes, Type I Other Endocrine/Metabolic History: brittle diabetic. 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 - Past Surgical History Head Surgeries/Procedures: Reports: None Social & Family History - Family History Family Medical History: Noncontributory Cardiac: Reports: High Cholesterol, Hypertension OBGYN: Reports: Neurological: Reports: None - Tobacco Use Smoking Status *Q: Never Smoker Years of Tobacco use: 7 Used Tobacco, but Quit: Yes Month/Year Tobacco Last Used: 2015 Second Hand Smoke Exposure: No - Caffeine Use Caffeine Use: Reports: None Other Caffeine Use: daily - Recreational Drug Use Recreational Drug Use: No - Living Situation & Occupation Living situation: Reports: Single Occupation: Employed (Currently unemployed.) H&P Review of Systems - Review of Systems: Review Of Systems: ROS reveals no pertinent complaints other than HPI. Exam - Exam Exam: See Below - Vital Signs Vital Signs: Last Vital Signs Temp 36.4 C 06/17/19 17:20 Pulse 101 H 06/17/19 17:20 Resp 16 06/17/19 17:20 BP 212/122 H 06/17/19 17:20 Pulse Ox 98 06/17/19 17:20 Weight: 77.337 kg - Exam General: Alert, Oriented HEENT: Mucosa Moist & [place] Lungs: Clear to Auscultation, Normal Respiratory Effort Cardiovascular: Regular Rate, Regular Rhythm GI/Abdominal Exam: Normal Bowel Sounds, Soft, Non-Tender Extremities: Non-Tender, No Pedal Edema, Other (s/p amputation) - Patient Data Lab Results Last 24 hrs: Laboratory Results - last 24 hr 06/17/19 06/17/19 06/17/19 Range/Units 13:46 13:46 15:20 WBC 10.91 (4.0-11.0) K/uL RBC 5.05 (4.50-5.90) M/uL Hgb 11.1 L (13.0-17.0) g/dL Hct 34.5 L (38.0-50.0) % MCV 68.3 L (80.0-98.0) fL MCH 22.0 L (27.0-32.0) pg MCHC 32.2 (31.0-37.0) g/dL RDW Std Deviation 40.5 (28.0-62.0) fl RDW Coeff of Dania 17 H (11.0-15.0) % Plt Count 193 (150-400) K/uL MPV 10.40 (7.40-12.00) fL Neut % (Auto) 76.7 (48.0-80.0) % Lymph % (Auto) 14.7 L (16.0-40.0) % [place] % (Auto) 5.1 (0.0-15.0) % Eos % (Auto) 3.0 (0.0-7.0) % Baso % (Auto) 0.5 (0.0-1.5) % Neut # (Auto) 8.4 H (1.4-5.7) K/uL Lymph # (Auto) 1.6 (0.6-2.4) K/uL [place] # (Auto) 0.6 (0.0-0.8) K/uL Eos # (Auto) 0.3 (0.0-0.7) K/uL Baso # (Auto) 0.1 (0.0-0.1) K/uL Nucleated RBC % 0.0 /100WBC Nucleated RBCs # 0 K/uL ABG pH (7.35-7.45) ABG pCO2 (35-45) mmHG ABG pO2 (75-100) mmHG ABG HCO3 (22-26) mEq/L ABG Total CO2 ABG Base Excess (-2.0-2.0) Sodium 138 (136-148) mmol/L Potassium 4.6 (3.5-5.1) mmol/L Chloride 104 (98-107) mmol/L Carbon Dioxide 21.5 (21.0-32.0) mmol/L BUN 33 H (7.0-18.0) mg/dL Creatinine 2.1 H (0.8-1.3) mg/dL Est Cr Clr Drug Dosing 43.33 mL/min Estimated GFR (MDRD) 44.3 ml/min Glucose 418 H (74-106) mg/dL POC Glucose (60-110) mg/dL Calcium 8.2 L (8.5-10.1) mg/dL Total Bilirubin 0.2 (0.2-1.0) mg/dL AST 34 (15-37) IU/L ALT 51 (14-63) IU/L Alkaline Phosphatase 137 H (46-116) U/L Total Protein 5.9 L (6.4-8.2) g/dL Albumin 2.6 L (3.4-5.0) g/dL Globulin 3.3 (2.6-4.0) g/dL Albumin/Globulin Ratio 0.8 L (0.9-1.6) Ketones NEGATIVE (NEG) 06/17/19 06/17/19 Range/Units 15:33 18:25 WBC (4.0-11.0) K/uL RBC (4.50-5.90) M/uL Hgb (13.0-17.0) g/dL Hct (38.0-50.0) % MCV (80.0-98.0) fL MCH (27.0-32.0) pg MCHC (31.0-37.0) g/dL RDW Std Deviation (28.0-62.0) fl RDW Coeff of Dania (11.0-15.0) % Plt Count (150-400) K/uL MPV (7.40-12.00) fL Neut % (Auto) (48.0-80.0) % Lymph % (Auto) (16.0-40.0) % [place] % (Auto) (0.0-15.0) % Eos % (Auto) (0.0-7.0) % Baso % (Auto) (0.0-1.5) % Neut # (Auto) (1.4-5.7) K/uL Lymph # (Auto) (0.6-2.4) K/uL [place] # (Auto) (0.0-0.8) K/uL Eos # (Auto) (0.0-0.7) K/uL Baso # (Auto) (0.0-0.1) K/uL Nucleated RBC % /100WBC Nucleated RBCs # K/uL ABG pH 7.397 (7.35-7.45) ABG pCO2 33 L (35-45) mmHG ABG pO2 100 (75-100) mmHG ABG HCO3 20 L (22-26) mEq/L ABG Total CO2 18.7 ABG Base Excess -3.9 L (-2.0-2.0) Sodium (136-148) mmol/L Potassium (3.5-5.1) mmol/L Chloride (98-107) mmol/L Carbon Dioxide (21.0-32.0) mmol/L BUN (7.0-18.0) mg/dL Creatinine (0.8-1.3) mg/dL Est Cr Clr Drug Dosing mL/min Estimated GFR (MDRD) ml/min Glucose (74-106) mg/dL POC Glucose 266 H (60-110) mg/dL Calcium (8.5-10.1) mg/dL Total Bilirubin (0.2-1.0) mg/dL AST (15-37) IU/L ALT (14-63) IU/L Alkaline Phosphatase (46-116) U/L Total Protein (6.4-8.2) g/dL Albumin (3.4-5.0) g/dL Globulin (2.6-4.0) g/dL Albumin/Globulin Ratio (0.9-1.6) Ketones (NEG) Result Diagrams: 06/18/19 05:55 06/18/19 05:55 Problem List Initiated/Reviewed/Updated: Yes Orders Last 24hrs: Active Orders 24 hr Category Date Time Status Patient Status [ADT] Stat ADT 06/17/19 16:24 Active Antiembolic Devices [RC] PER UNIT ROUTINE Care 06/17/19 18:47 Ordered Blood Glucose Check, Bedside [RC] ONETIME Care 06/17/19 15:05 Active Blood Glucose Check, Bedside [RC] TIDMEALS Care 06/17/19 18:46 Ordered Oxygen Therapy [RC] PRN Care 06/17/19 18:46 Ordered Up ad Ruth [RC] ASDIRECTED Care 06/17/19 18:46 Ordered VTE/DVT Education [RC] PER UNIT ROUTINE Care 06/17/19 18:46 Ordered Vital Signs [RC] Q4H Care 06/17/19 18:46 Ordered [employer] Diet [DIET] Diet 06/17/19 Breakfast Ordered CBC WITH AUTO DIFF [HEME] AM Lab 06/18/19 05:11 Ordered COMPREHENSIVE METABOLIC PN,CMP [CHEM] AM Lab 06/18/19 05:11 Ordered TYPE AND SCREEN [BBK] Stat Lab 06/17/19 13:04 Ordered Doxazosin Med 06/17/19 21:00 Ordered 2 mg PO BEDTIME Enalapril [Vasotec] Med 06/17/19 21:00 Ordered 40 mg PO BEDTIME Insulin Aspart [NovoLOG] Med 06/18/19 07:30 Ordered See Protocol SUBCUT TIDAC Insulin Glarg,Human.Rec.Analog [LantUS Solostar] Med 06/17/19 21:00 Ordered 35 units SUBCUT BEDTIME Ondansetron [Zofran] Med 06/17/19 18:46 Ordered 4 mg IVPUSH Q4H PRN Promethazine [Phenergan] Med 06/17/19 18:46 Ordered 25 mg IM Q6H PRN Sodium Chloride 0.9% @ 125 MLS/HR (1000ml) Med 06/17/19 19:00 Ordered Sodium Chloride 0.9% [Normal Saline] 1,000 ml IV ASDIRECTED Sodium Chloride 0.9% [Saline Flush] Med 06/17/19 13:04 Active 10 ml FLUSH ASDIRECTED PRN Sodium Chloride 0.9% [Saline Flush] Med 06/17/19 13:04 Active 2.5 ml FLUSH ASDIRECTED PRN Sucralfate [Carafate] Med 06/17/19 21:00 Ordered 1 gm PO QIDACANDBED amLODIPine Med 06/17/19 21:00 Ordered 10 mg PO BEDTIME Saline Lock Insert [OM.PC] Stat Oth 06/17/19 13:04 Ordered Sequential Compression Device [OM.PC] Per Unit Routine Oth 06/17/19 18:46 Ordered Resuscitation Status Routine Resus Stat 06/17/19 18:46 Ordered Medication Orders Enalapril Maleate (Vasotec) 40 mg PO BEDTIME MICHAEL Sodium Chloride (Normal Saline) 1,000 mls @ 125 mls/hr IV ASDIRECTED MICHAEL Insulin Aspart (Novolog) 0 unit SUBCUT TIDAC MICHAEL; Protocol Insulin Glargine (Lantus Solostar) 35 units SUBCUT BEDTIME MICHAEL Non-Formulary Medication (Amlodipine) 10 mg PO BEDTIME MICHAEL Non-Formulary Medication (Doxazosin) 2 mg PO BEDTIME MICHAEL Ondansetron HCl (Zofran) 4 mg IVPUSH Q4H PRN PRN Reason: Nausea Promethazine HCl (Phenergan) 25 mg IM Q6H PRN PRN Reason: Nausea Sodium Chloride (Saline Flush) 10 ml FLUSH ASDIRECTED PRN PRN Reason: Keep Vein Open Sodium Chloride (Saline Flush) 2.5 ml FLUSH ASDIRECTED PRN PRN Reason: Keep Vein Open Sucralfate (Carafate) 1 gm PO QIDACANDBED [facility] Assessment/Plan Comment:: 34 yo male with pmh of DM and gastroparesis admitted for abdominal pain, nausea , vomiting and hyperglycemia. We will treat supportively with IV fluids, and antiemetics.
[2019-06-17] MEDS: Sucralfate Suspension 1 GM/10 ML Cup PO SCH (21:42)
[2019-06-17] MEDS: Doxazosin 2 MG Tab PO SCH (21:42)
[2019-06-17] MEDS: amLODIPine 5 MG Tab PO SCH (21:43)
[2019-06-17] MEDS: Insulin Glargine,Human Rec. Analog 100 Units/ML 3 ML Pen SUBCUT SCH (21:44)
[2019-06-17] MEDS ORDERED: Acetaminophen 325 MG Tab PO PRN (21:55)
[2019-06-17] MEDS ORDERED: 50% Dextrose in Water 50 ML Syringe IVPUSH ONE (21:56)
[2019-06-17] MEDS: Ondansetron 4 MG/2 ML SDV IVPUSH PRN (22:49)
[2019-06-17] MEDS ORDERED: traMADol 50 MG Tab PO PRN (22:56)
[2019-06-17] MEDS ORDERED: Morphine 2 MG/ML Syringe IVPUSH PRN (23:14)
[2019-06-17] MEDS: Promethazine 25 MG/ML SDV IM PRN (23:32)
[2019-06-18] MEDS: Sodium Chloride 0.9% 1,000 ML IV SCH ×2 (00:14→08:21)
[2019-06-18] MEDS: Insulin Aspart 100 Units/ML 3 ML Pen SUBCUT SCH ×3 (06:36→17:53)
[2019-06-18] MEDS: Sucralfate Suspension 1 GM/10 ML Cup PO SCH ×4 (06:36→21:11)
[2019-06-18 06:57] LABS: CARBON DIOXIDE,CO2 23.9 mmol/L (21.0-32.0); POTASSIUM,K 4.6 mmol/L (3.5-5.1)
--- NOTE | 2019-06-18 12:38 | PCM.PN ---
- General Info Date of Service: 06/18/19 - Review of Systems Systems Review Comment:: reports feeling ill, - Patient Data Vitals - Most Recent: Last Vital Signs Temp 37.2 C 06/18/19 11:00 Pulse 105 H 06/18/19 11:00 Resp 20 06/18/19 11:00 BP 180/90 H 06/18/19 11:00 Pulse Ox 98 06/18/19 11:00 Weight - Most Recent: 77.337 kg I&O - Last 24 Hours: Intake & Output 06/17/19 06/18/19 06/18/19 22:59 06:59 14:59 Intake Total 1275 999 Output Total 300 Balance 975 999 Lab Results Last 24 Hours: Laboratory Results - last 24 hr 06/17/19 06/17/19 06/17/19 Range/Units 13:46 13:46 15:20 WBC 10.91 (4.0-11.0) K/uL RBC 5.05 (4.50-5.90) M/uL Hgb 11.1 L (13.0-17.0) g/dL Hct 34.5 L (38.0-50.0) % MCV 68.3 L (80.0-98.0) fL MCH 22.0 L (27.0-32.0) pg MCHC 32.2 (31.0-37.0) g/dL RDW Std Deviation 40.5 (28.0-62.0) fl RDW Coeff of Dania 17 H (11.0-15.0) % Plt Count 193 (150-400) K/uL MPV 10.40 (7.40-12.00) fL Neut % (Auto) 76.7 (48.0-80.0) % Lymph % (Auto) 14.7 L (16.0-40.0) % [place] % (Auto) 5.1 (0.0-15.0) % Eos % (Auto) 3.0 (0.0-7.0) % Baso % (Auto) 0.5 (0.0-1.5) % Neut # (Auto) 8.4 H (1.4-5.7) K/uL Lymph # (Auto) 1.6 (0.6-2.4) K/uL [place] # (Auto) 0.6 (0.0-0.8) K/uL Eos # (Auto) 0.3 (0.0-0.7) K/uL Baso # (Auto) 0.1 (0.0-0.1) K/uL Nucleated RBC % 0.0 /100WBC Nucleated RBCs # 0 K/uL ABG pH (7.35-7.45) ABG pCO2 (35-45) mmHG ABG pO2 (75-100) mmHG ABG HCO3 (22-26) mEq/L ABG Total CO2 ABG Base Excess (-2.0-2.0) Sodium 138 (136-148) mmol/L Potassium 4.6 (3.5-5.1) mmol/L Chloride 104 (98-107) mmol/L Carbon Dioxide 21.5 (21.0-32.0) mmol/L BUN 33 H (7.0-18.0) mg/dL Creatinine 2.1 H (0.8-1.3) mg/dL Est Cr Clr Drug Dosing 43.33 mL/min Estimated GFR (MDRD) 44.3 ml/min Glucose 418 H (74-106) mg/dL POC Glucose (60-110) mg/dL Calcium 8.2 L (8.5-10.1) mg/dL Total Bilirubin 0.2 (0.2-1.0) mg/dL AST 34 (15-37) IU/L ALT 51 (14-63) IU/L Alkaline Phosphatase 137 H (46-116) U/L Total Protein 5.9 L (6.4-8.2) g/dL Albumin 2.6 L (3.4-5.0) g/dL Globulin 3.3 (2.6-4.0) g/dL Albumin/Globulin Ratio 0.8 L (0.9-1.6) Ketones NEGATIVE (NEG) 06/17/19 06/17/19 06/17/19 Range/Units 15:33 18:25 21:40 WBC (4.0-11.0) K/uL RBC (4.50-5.90) M/uL Hgb (13.0-17.0) g/dL Hct (38.0-50.0) % MCV (80.0-98.0) fL MCH (27.0-32.0) pg MCHC (31.0-37.0) g/dL RDW Std Deviation (28.0-62.0) fl RDW Coeff of Dania (11.0-15.0) % Plt Count (150-400) K/uL MPV (7.40-12.00) fL Neut % (Auto) (48.0-80.0) % Lymph % (Auto) (16.0-40.0) % [place] % (Auto) (0.0-15.0) % Eos % (Auto) (0.0-7.0) % Baso % (Auto) (0.0-1.5) % Neut # (Auto) (1.4-5.7) K/uL Lymph # (Auto) (0.6-2.4) K/uL [place] # (Auto) (0.0-0.8) K/uL Eos # (Auto) (0.0-0.7) K/uL Baso # (Auto) (0.0-0.1) K/uL Nucleated RBC % /100WBC Nucleated RBCs # K/uL ABG pH 7.397 (7.35-7.45) ABG pCO2 33 L (35-45) mmHG ABG pO2 100 (75-100) mmHG ABG HCO3 20 L (22-26) mEq/L ABG Total CO2 18.7 ABG Base Excess -3.9 L (-2.0-2.0) Sodium (136-148) mmol/L Potassium (3.5-5.1) mmol/L Chloride (98-107) mmol/L Carbon Dioxide (21.0-32.0) mmol/L BUN (7.0-18.0) mg/dL Creatinine (0.8-1.3) mg/dL Est Cr Clr Drug Dosing mL/min Estimated GFR (MDRD) ml/min Glucose (74-106) mg/dL POC Glucose 266 H 43 L (60-110) mg/dL Calcium (8.5-10.1) mg/dL Total Bilirubin (0.2-1.0) mg/dL AST (15-37) IU/L ALT (14-63) IU/L Alkaline Phosphatase (46-116) U/L Total Protein (6.4-8.2) g/dL Albumin (3.4-5.0) g/dL Globulin (2.6-4.0) g/dL Albumin/Globulin Ratio (0.9-1.6) Ketones (NEG) 06/17/19 06/18/19 06/18/19 Range/Units 22:50 05:55 05:55 WBC 12.15 H (4.0-11.0) K/uL RBC 4.68 (4.50-5.90) M/uL Hgb 10.1 L (13.0-17.0) g/dL Hct 32.4 L (38.0-50.0) % MCV 69.2 L (80.0-98.0) fL MCH 21.6 L (27.0-32.0) pg MCHC 31.2 (31.0-37.0) g/dL RDW Std Deviation 41.3 (28.0-62.0) fl RDW Coeff of Dania 17 H (11.0-15.0) % Plt Count 329 (150-400) K/uL MPV 11.10 (7.40-12.00) fL Neut % (Auto) 74.5 (48.0-80.0) % Lymph % (Auto) 17.9 (16.0-40.0) % [place] % (Auto) 7.2 (0.0-15.0) % Eos % (Auto) 0.2 (0.0-7.0) % Baso % (Auto) 0.2 (0.0-1.5) % Neut # (Auto) 9.1 H (1.4-5.7) K/uL Lymph # (Auto) 2.2 (0.6-2.4) K/uL [place] # (Auto) 0.9 H (0.0-0.8) K/uL Eos # (Auto) 0.0 (0.0-0.7) K/uL Baso # (Auto) 0.0 (0.0-0.1) K/uL Nucleated RBC % 0.0 /100WBC Nucleated RBCs # 0 K/uL ABG pH (7.35-7.45) ABG pCO2 (35-45) mmHG ABG pO2 (75-100) mmHG ABG HCO3 (22-26) mEq/L ABG Total CO2 ABG Base Excess (-2.0-2.0) Sodium 136 (136-148) mmol/L Potassium 4.6 (3.5-5.1) mmol/L Chloride 104 (98-107) mmol/L Carbon Dioxide 23.9 (21.0-32.0) mmol/L BUN 33 H (7.0-18.0) mg/dL Creatinine 2.2 H (0.8-1.3) mg/dL Est Cr Clr Drug Dosing 47.76 mL/min Estimated GFR (MDRD) 42.0 ml/min Glucose 466 H (74-106) mg/dL POC Glucose 159 H (60-110) mg/dL Calcium 7.9 L (8.5-10.1) mg/dL Total Bilirubin 0.2 (0.2-1.0) mg/dL AST 21 (15-37) IU/L ALT 38 (14-63) IU/L Alkaline Phosphatase 109 (46-116) U/L Total Protein 6.0 L (6.4-8.2) g/dL Albumin 2.3 L (3.4-5.0) g/dL Globulin 3.7 (2.6-4.0) g/dL Albumin/Globulin Ratio 0.6 L (0.9-1.6) Ketones (NEG) 06/18/19 06/18/19 06/18/19 Range/Units 06:29 07:29 08:17 WBC (4.0-11.0) K/uL RBC (4.50-5.90) M/uL Hgb (13.0-17.0) g/dL Hct (38.0-50.0) % MCV (80.0-98.0) fL MCH (27.0-32.0) pg MCHC (31.0-37.0) g/dL RDW Std Deviation (28.0-62.0) fl RDW Coeff of Dania (11.0-15.0) % Plt Count (150-400) K/uL MPV (7.40-12.00) fL Neut % (Auto) (48.0-80.0) % Lymph % (Auto) (16.0-40.0) % [place] % (Auto) (0.0-15.0) % Eos % (Auto) (0.0-7.0) % Baso % (Auto) (0.0-1.5) % Neut # (Auto) (1.4-5.7) K/uL Lymph # (Auto) (0.6-2.4) K/uL [place] # (Auto) (0.0-0.8) K/uL Eos # (Auto) (0.0-0.7) K/uL Baso # (Auto) (0.0-0.1) K/uL Nucleated RBC % /100WBC Nucleated RBCs # K/uL ABG pH (7.35-7.45) ABG pCO2 (35-45) mmHG ABG pO2 (75-100) mmHG ABG HCO3 (22-26) mEq/L ABG Total CO2 ABG Base Excess (-2.0-2.0) Sodium (136-148) mmol/L Potassium (3.5-5.1) mmol/L Chloride (98-107) mmol/L Carbon Dioxide (21.0-32.0) mmol/L BUN (7.0-18.0) mg/dL Creatinine (0.8-1.3) mg/dL Est Cr Clr Drug Dosing mL/min Estimated GFR (MDRD) ml/min Glucose (74-106) mg/dL POC Glucose 455 H 408 H 296 H (60-110) mg/dL Calcium (8.5-10.1) mg/dL Total Bilirubin (0.2-1.0) mg/dL AST (15-37) IU/L ALT (14-63) IU/L Alkaline Phosphatase (46-116) U/L Total Protein (6.4-8.2) g/dL Albumin (3.4-5.0) g/dL Globulin (2.6-4.0) g/dL Albumin/Globulin Ratio (0.9-1.6) Ketones (NEG) 06/18/19 Range/Units 11:24 WBC (4.0-11.0) K/uL RBC (4.50-5.90) M/uL Hgb (13.0-17.0) g/dL Hct (38.0-50.0) % MCV (80.0-98.0) fL MCH (27.0-32.0) pg MCHC (31.0-37.0) g/dL RDW Std Deviation (28.0-62.0) fl RDW Coeff of Dania (11.0-15.0) % Plt Count (150-400) K/uL MPV (7.40-12.00) fL Neut % (Auto) (48.0-80.0) % Lymph % (Auto) (16.0-40.0) % [place] % (Auto) (0.0-15.0) % Eos % (Auto) (0.0-7.0) % Baso % (Auto) (0.0-1.5) % Neut # (Auto) (1.4-5.7) K/uL Lymph # (Auto) (0.6-2.4) K/uL [place] # (Auto) (0.0-0.8) K/uL Eos # (Auto) (0.0-0.7) K/uL Baso # (Auto) (0.0-0.1) K/uL Nucleated RBC % /100WBC Nucleated RBCs # K/uL ABG pH (7.35-7.45) ABG pCO2 (35-45) mmHG ABG pO2 (75-100) mmHG ABG HCO3 (22-26) mEq/L ABG Total CO2 ABG Base Excess (-2.0-2.0) Sodium (136-148) mmol/L Potassium (3.5-5.1) mmol/L Chloride (98-107) mmol/L Carbon Dioxide (21.0-32.0) mmol/L BUN (7.0-18.0) mg/dL Creatinine (0.8-1.3) mg/dL Est Cr Clr Drug Dosing mL/min Estimated GFR (MDRD) ml/min Glucose (74-106) mg/dL POC Glucose 302 H (60-110) mg/dL Calcium (8.5-10.1) mg/dL Total Bilirubin (0.2-1.0) mg/dL AST (15-37) IU/L ALT (14-63) IU/L Alkaline Phosphatase (46-116) U/L Total Protein (6.4-8.2) g/dL Albumin (3.4-5.0) g/dL Globulin (2.6-4.0) g/dL Albumin/Globulin Ratio (0.9-1.6) Ketones (NEG) Med Orders - Current: Current Medications Acetaminophen (Tylenol) 650 mg PO Q6H PRN PRN Reason: Pain Last Admin: 06/17/19 22:16 Dose: 650 mg Amlodipine Besylate (Norvasc) 10 mg PO BEDTIME [facility] Last Admin: 06/17/19 21:43 Dose: 10 mg Atorvastatin Calcium (Lipitor) 80 mg PO BEDTIME [facility] Doxazosin Mesylate (Cardura) 2 mg PO BEDTIME [facility] Last Admin: 06/17/19 21:42 Dose: 2 mg Enalapril Maleate (Vasotec) 40 mg PO BEDTIME [facility] Last Admin: 06/17/19 21:42 Dose: 40 mg Hydralazine HCl (Apresoline) 25 mg PO TID [facility] Hydrochlorothiazide (Hydrochlorothiazide) 25 mg PO DAILY [facility] Sodium Chloride (Normal Saline) 1,000 mls @ 125 mls/hr IV ASDIRECTED [facility] Last Admin: 06/18/19 08:21 Dose: 125 mls/hr Insulin Aspart (Novolog) 0 unit SUBCUT TIDAC [facility]; Protocol Last Admin: 06/18/19 11:41 Dose: 8 units Insulin Glargine (Lantus Solostar) 35 units SUBCUT BEDTIME [facility] Last Admin: 06/17/19 21:44 Dose: Not Given Metoprolol Succinate (Toprol Xl) 200 mg PO DAILY [facility] Morphine Sulfate (Morphine) 2 mg IVPUSH Q4H PRN PRN Reason: Pain Ondansetron HCl (Zofran) 4 mg IVPUSH Q4H PRN PRN Reason: Nausea Last Admin: 06/17/19 22:49 Dose: 4 mg Promethazine HCl (Phenergan) 25 mg IM Q6H PRN PRN Reason: Nausea Last Admin: 06/17/19 23:32 Dose: 25 mg Sodium Chloride (Saline Flush) 10 ml FLUSH ASDIRECTED PRN PRN Reason: Keep Vein Open Sodium Chloride (Saline Flush) 2.5 ml FLUSH ASDIRECTED PRN PRN Reason: Keep Vein Open Spironolactone (Aldactone) 25 mg PO DAILY [facility] Sucralfate (Carafate) 1 gm PO QIDACANDBED [facility] Last Admin: 06/18/19 11:40 Dose: 1 gm Tramadol HCl (Ultram) 50 mg PO Q6H PRN PRN Reason: Pain Discontinued Medications Al Hydroxide/Mg Hydroxide 15 (ml/ Lidocaine HCl 5 ml) 0 ml PO ONETIME ONE Stop: 06/17/19 15:39 Last Admin: 06/17/19 16:07 Dose: 1 each Dextrose/Water (Dextrose 50% In Water) 50 ml IVPUSH ONETIME ONE Stop: 06/17/19 21:57 Last Admin: 06/17/19 22:16 Dose: 50 ml Sodium Chloride (Normal Saline) 1,000 mls @ 999 mls/hr IV .Bolus ONE Stop: 06/17/19 14:04 Last Admin: 06/17/19 13:21 Dose: 999 mls/hr Sodium Chloride (Normal Saline) Confirm Administered Dose 20 mls @ as directed .ROUTE .STK-MED ONE Stop: 06/17/19 13:12 Last Admin: 06/17/19 13:39 Dose: 20 mls/hr Sodium Chloride (Normal Saline) 1,000 mls @ 999 mls/hr IV .Bolus ONE Stop: 06/17/19 15:36 Last Admin: 06/17/19 14:57 Dose: 999 mls/hr Insulin Human Regular (Novolin R) 10 unit SUBCUT ONETIME ONE; Protocol Stop: 06/17/19 15:05 Last Admin: 06/17/19 15:17 Dose: 10 unit Insulin Human Regular (Novolin R) 15 unit SUBCUT ONETIME ONE; Protocol Stop: 06/17/19 16:11 Last Admin: 06/17/19 16:16 Dose: 15 unit Lorazepam (Ativan) 1 mg IVPUSH ONETIME ONE Stop: 06/17/19 13:06 Last Admin: 06/17/19 13:19 Dose: 1 mg Lorazepam (Ativan) 1 mg IVPUSH ONETIME ONE Stop: 06/17/19 16:45 Last Admin: 06/17/19 17:02 Dose: 1 mg Metoclopramide HCl (Reglan) 10 mg IV ONETIME ONE Stop: 06/17/19 14:28 Last Admin: 06/17/19 14:58 Dose: 10 mg Metoclopramide HCl (Reglan) 10 mg IV ONETIME ONE Stop: 06/17/19 15:39 Last Admin: 06/17/19 15:47 Dose: 10 mg Morphine Sulfate (Morphine) 2 mg IVPUSH Q3HR PRN PRN Reason: Pain Last Admin: 06/17/19 23:23 Dose: 2 mg Ondansetron HCl (Zofran) 4 mg IVPUSH ONETIME ONE Stop: 06/17/19 13:05 Last Admin: 06/17/19 13:25 Dose: 4 mg Pantoprazole Sodium (Protonix Iv) 80 mg IVPUSH .BOLUS ONE Stop: 06/17/19 13:05 Last Admin: 06/17/19 13:25 Dose: 80 mg - Exam General: Alert, Oriented Neck: Supple Lungs: Clear to Auscultation, Normal Respiratory Effort Cardiovascular: Regular Rate, Regular Rhythm GI/Abdominal Exam: Soft, Non-Tender Extremities: Non-Tender, No Pedal Edema Skin: Warm, Dry, Intact Neurological: No New Focal Deficit - Problem List Review Problem List Initiated/Reviewed/Updated: Yes - My Orders Last 24 Hours: My Active Orders 06/17/19 18:46 Blood Glucose Check, Bedside [RC] TIDMEALS Oxygen Therapy [RC] PRN Up ad Ruth [RC] ASDIRECTED VTE/DVT Education [RC] PER UNIT ROUTINE Vital Signs [RC] Q4H Ondansetron [Zofran] 4 mg IVPUSH Q4H PRN Promethazine [Phenergan] 25 mg IM Q6H PRN Sequential Compression Device [OM.PC] Per Unit Routine Resuscitation Status Routine 06/17/19 18:47 Antiembolic Devices [RC] PER UNIT ROUTINE 06/17/19 19:00 Sodium Chloride 0.9% [Normal Saline] 1,000 ml IV ASDIRECTED 06/17/19 21:00 Doxazosin [Cardura] 2 mg PO BEDTIME Enalapril [Vasotec] 40 mg PO BEDTIME Insulin Glarg,Human.Rec.Analog [LantUS Solostar] 35 units SUBCUT BEDTIME Sucralfate [Carafate] 1 gm PO QIDACANDBED amLODIPine [Norvasc] 10 mg PO BEDTIME 06/17/19 21:55 Acetaminophen [Tylenol] 650 mg PO Q6H PRN 06/17/19 22:56 traMADol [Ultram] 50 mg PO Q6H PRN 06/18/19 07:30 Insulin Aspart [NovoLOG] See Protocol SUBCUT TIDAC 06/18/19 12:24 Morphine 2 mg IVPUSH Q4H PRN 06/18/19 12:30 Metoprolol Succinate [Toprol XL] 200 mg PO DAILY Spironolactone [Aldactone] 25 mg PO DAILY 06/18/19 14:00 hydrALAZINE [Apresoline] 25 mg PO TID 06/18/19 21:00 atorvaSTATin [Lipitor] 80 mg PO BEDTIME 06/19/19 09:00 hydroCHLOROthiazide 25 mg PO DAILY - Plan Plan:: 34 yo male with pmh of DM and gastroparesis admitted for abdominal pain, nausea , vomiting and hyperglycemia. Patient is feeling a little bit better Resuming home antihypertensive medications, lantus and ssi.
[2019-06-18] MEDS: Ondansetron 4 MG/2 ML SDV IVPUSH PRN ×4 (12:39→23:44)
[2019-06-18] MEDS: Metoprolol Succinate 100 MG Tab.ER PO SCH (12:41)
[2019-06-18] MEDS: Spironolactone 25 MG Tab PO SCH (12:41)
[2019-06-18] MEDS: Morphine 2 MG/ML Syringe IVPUSH PRN ×3 (12:53→20:44)
[2019-06-18] MEDS: Promethazine 25 MG/ML SDV IM PRN ×2 (13:37→19:49)
[2019-06-18] MEDS: hydrALAZINE 25 MG Tab PO SCH ×2 (13:40→21:12)
[2019-06-18] MEDS ORDERED: LORazepam 1 MG Tab PO ONE (14:08)
[2019-06-18] MEDS ORDERED: LORazepam 2 MG/ML SDV IVPUSH ONE (15:00)
[2019-06-18] MEDS ORDERED: cloNIDine 0.1 MG Tab PO ONE (17:00)
[2019-06-18] MEDS ORDERED: hydrALAZINE 20 MG/ML SDV IVPUSH ONE (18:16)
[2019-06-18] MEDS: Pantoprazole 40 MG in Sodium Chloride 0.9% 10 ML IV SCH (20:50)
[2019-06-18] MEDS: amLODIPine 5 MG Tab PO SCH ×2 (21:01→21:11)
[2019-06-18] MEDS: Insulin Glargine,Human Rec. Analog 100 Units/ML 3 ML Pen SUBCUT SCH (21:07)
[2019-06-18] MEDS: Doxazosin 2 MG Tab PO SCH (21:11)
[2019-06-18] MEDS: atorvaSTATin 40 MG Tab PO SCH (21:11)
[2019-06-19] MEDS: Sodium Chloride 0.9% 1,000 ML IV SCH ×3 (00:19→21:00)
[2019-06-19] MEDS: Morphine 2 MG/ML Syringe IVPUSH PRN (00:57)
[2019-06-19] MEDS: hydrALAZINE 20 MG/ML SDV IVPUSH PRN ×2 (02:04→11:58)
[2019-06-19] MEDS: Promethazine 25 MG/ML SDV IM PRN ×3 (02:11→17:58)
[2019-06-19] MEDS: HYDROmorphone 1 MG/ML Syringe IVPUSH PRN ×5 (02:24→22:26)
[2019-06-19] MEDS: Ondansetron 4 MG/2 ML SDV IVPUSH PRN ×4 (05:06→20:17)
[2019-06-19] MEDS: hydrALAZINE 25 MG Tab PO SCH ×3 (06:01→21:45)
[2019-06-19 06:28] LABS: CARBON DIOXIDE,CO2 26.1 mmol/L (21.0-32.0); POTASSIUM,K 3.4 mmol/L (3.5-5.1)
[2019-06-19] MEDS: Sucralfate Suspension 1 GM/10 ML Cup PO SCH ×4 (06:43→21:51)
[2019-06-19] MEDS: Insulin Aspart 100 Units/ML 3 ML Pen SUBCUT SCH ×3 (07:51→17:26)
--- NOTE | 2019-06-19 08:03 | PCM.PN ---
- General Info Date of Service: 06/19/19 Admission Dx/Problem (Free Text): Admission Diagnosis/Problem Admission Diagnosis/Problem Gastroparesis Subjective Update: The patient is a 34-year-old man who had been admitted for abdominal pain secondary to his poorly controlled diabetes and gastroparesis. Patient has had multiple admissions for this. Patient says that his pain has been poorly controlled. The patient has been pacing. He also says that he has had severe vomiting and been unable to keep anything down. He has refused by mouth medications as he just vomits them up. He's been on multiple anti-emetics and these have not helped him. Functional Status: Denies: Pain Controlled - Review of Systems General: Reports: No Symptoms HEENT: Reports: No Symptoms Pulmonary: Reports: No Symptoms Cardiovascular: Reports: No Symptoms Gastrointestinal: Reports: Abdominal Pain, Nausea, Vomiting Genitourinary: Reports: No Symptoms Musculoskeletal: Reports: No Symptoms Skin: Reports: No Symptoms Neurological: Reports: No Symptoms Psychiatric: Reports: No Symptoms - Patient Data Vitals - Most Recent: Last Vital Signs Temp 36 C 06/19/19 07:30 Pulse 105 H 06/19/19 07:30 Resp 16 06/19/19 07:30 BP 143/77 H 06/19/19 07:30 Pulse Ox 97 06/19/19 07:30 Weight - Most Recent: 77.337 kg I&O - Last 24 Hours: Intake & Output 06/18/19 06/19/19 06/19/19 22:59 06:59 14:59 Intake Total 2350 0 Output Total 475 1600 Balance 1875 -1600 Lab Results Last 24 Hours: Laboratory Results - last 24 hr 06/18/19 06/18/19 06/18/19 Range/Units 07:29 08:17 11:24 WBC (4.0-11.0) K/uL RBC (4.50-5.90) M/uL Hgb (13.0-17.0) g/dL Hct (38.0-50.0) % MCV (80.0-98.0) fL MCH (27.0-32.0) pg MCHC (31.0-37.0) g/dL RDW Std Deviation (28.0-62.0) fl RDW Coeff of Dania (11.0-15.0) % Plt Count (150-400) K/uL MPV (7.40-12.00) fL Neut % (Auto) (48.0-80.0) % Lymph % (Auto) (16.0-40.0) % Motley % (Auto) (0.0-15.0) % Eos % (Auto) (0.0-7.0) % Baso % (Auto) (0.0-1.5) % Neut # (Auto) (1.4-5.7) K/uL Lymph # (Auto) (0.6-2.4) K/uL Motley # (Auto) (0.0-0.8) K/uL Eos # (Auto) (0.0-0.7) K/uL Baso # (Auto) (0.0-0.1) K/uL Nucleated RBC % /100WBC Nucleated RBCs # K/uL Sodium (136-148) mmol/L Potassium (3.5-5.1) mmol/L Chloride (98-107) mmol/L Carbon Dioxide (21.0-32.0) mmol/L BUN (7.0-18.0) mg/dL Creatinine (0.8-1.3) mg/dL Est Cr Clr Drug Dosing mL/min Estimated GFR (MDRD) ml/min Glucose (74-106) mg/dL POC Glucose 408 H 296 H 302 H (60-110) mg/dL Calcium (8.5-10.1) mg/dL 06/18/19 06/18/19 06/19/19 Range/Units 17:16 20:57 05:30 WBC 15.01 H (4.0-11.0) K/uL RBC 4.97 (4.50-5.90) M/uL Hgb 10.8 L (13.0-17.0) g/dL Hct 34.1 L (38.0-50.0) % MCV 68.6 L (80.0-98.0) fL MCH 21.7 L (27.0-32.0) pg MCHC 31.7 (31.0-37.0) g/dL RDW Std Deviation 40.6 (28.0-62.0) fl RDW Coeff of Dania 17 H (11.0-15.0) % Plt Count 329 (150-400) K/uL MPV 10.60 (7.40-12.00) fL Neut % (Auto) 85.0 H (48.0-80.0) % Lymph % (Auto) 8.6 L (16.0-40.0) % Motley % (Auto) 6.3 (0.0-15.0) % Eos % (Auto) 0.0 (0.0-7.0) % Baso % (Auto) 0.1 (0.0-1.5) % Neut # (Auto) 12.8 H (1.4-5.7) K/uL Lymph # (Auto) 1.3 (0.6-2.4) K/uL Motley # (Auto) 1.0 H (0.0-0.8) K/uL Eos # (Auto) 0.0 (0.0-0.7) K/uL Baso # (Auto) 0.0 (0.0-0.1) K/uL Nucleated RBC % 0.0 /100WBC Nucleated RBCs # 0 K/uL Sodium (136-148) mmol/L Potassium (3.5-5.1) mmol/L Chloride (98-107) mmol/L Carbon Dioxide (21.0-32.0) mmol/L BUN (7.0-18.0) mg/dL Creatinine (0.8-1.3) mg/dL Est Cr Clr Drug Dosing mL/min Estimated GFR (MDRD) ml/min Glucose (74-106) mg/dL POC Glucose 339 H 300 H (60-110) mg/dL Calcium (8.5-10.1) mg/dL 06/19/19 06/19/19 Range/Units 05:30 06:14 WBC (4.0-11.0) K/uL RBC (4.50-5.90) M/uL Hgb (13.0-17.0) g/dL Hct (38.0-50.0) % MCV (80.0-98.0) fL MCH (27.0-32.0) pg MCHC (31.0-37.0) g/dL RDW Std Deviation (28.0-62.0) fl RDW Coeff of Dania (11.0-15.0) % Plt Count (150-400) K/uL MPV (7.40-12.00) fL Neut % (Auto) (48.0-80.0) % Lymph % (Auto) (16.0-40.0) % Motley % (Auto) (0.0-15.0) % Eos % (Auto) (0.0-7.0) % Baso % (Auto) (0.0-1.5) % Neut # (Auto) (1.4-5.7) K/uL Lymph # (Auto) (0.6-2.4) K/uL Motley # (Auto) (0.0-0.8) K/uL Eos # (Auto) (0.0-0.7) K/uL Baso # (Auto) (0.0-0.1) K/uL Nucleated RBC % /100WBC Nucleated RBCs # K/uL Sodium 146 (136-148) mmol/L Potassium 3.4 L (3.5-5.1) mmol/L Chloride 109 H (98-107) mmol/L Carbon Dioxide 26.1 (21.0-32.0) mmol/L BUN 28 H (7.0-18.0) mg/dL Creatinine 2.3 H (0.8-1.3) mg/dL Est Cr Clr Drug Dosing 45.68 mL/min Estimated GFR (MDRD) 39.9 ml/min Glucose 120 H (74-106) mg/dL POC Glucose 94 (60-110) mg/dL Calcium 8.5 (8.5-10.1) mg/dL Med Orders - Current: Current Medications Acetaminophen (Tylenol) 650 mg PO Q6H PRN PRN Reason: Pain Last Admin: 06/17/19 22:16 Dose: 650 mg Amlodipine Besylate (Norvasc) 10 mg PO BEDTIME [facility] Last Admin: 06/18/19 21:11 Dose: Not Given Atorvastatin Calcium (Lipitor) 80 mg PO BEDTIME [facility] Last Admin: 06/18/19 21:11 Dose: Not Given Doxazosin Mesylate (Cardura) 2 mg PO BEDTIME [facility] Last Admin: 06/18/19 21:11 Dose: Not Given Enalapril Maleate (Vasotec) 40 mg PO BEDTIME [facility] Last Admin: 06/19/19 00:38 Dose: Not Given Hydralazine HCl (Apresoline) 25 mg PO TID [facility] Last Admin: 06/19/19 06:01 Dose: Not Given Hydralazine HCl (Apresoline) 25 mg IVPUSH Q8H PRN PRN Reason: Hypertension Last Admin: 06/19/19 02:04 Dose: 25 mg Hydromorphone HCl (Dilaudid) 1 mg IVPUSH Q4H PRN PRN Reason: Pain (severe 7-10) Last Admin: 06/19/19 06:43 Dose: 1 mg Pantoprazole Sodium 40 mg/ (Sodium Chloride) 10 mls @ 300 mls/hr IV Q12H [facility] Last Admin: 06/18/19 20:50 Dose: 300 mls/hr Sodium Chloride (Normal Saline) 1,000 mls @ 125 mls/hr IV ASDIRECTED [facility] Last Admin: 06/19/19 00:19 Dose: 125 mls/hr Insulin Aspart (Novolog) 0 unit SUBCUT TIDAC [facility]; Protocol Last Admin: 06/19/19 07:51 Dose: Not Given Insulin Glargine (Lantus Solostar) 35 units SUBCUT BEDTIME [facility] Last Admin: 06/18/19 21:07 Dose: 35 units Metoprolol Succinate (Toprol Xl) 200 mg PO DAILY [facility] Last Admin: 06/18/19 12:41 Dose: 100 mg Ondansetron HCl (Zofran) 4 mg IVPUSH Q4H PRN PRN Reason: Nausea Last Admin: 06/19/19 05:06 Dose: 4 mg Promethazine HCl (Phenergan) 25 mg IM Q6H PRN PRN Reason: Nausea Last Admin: 06/19/19 02:11 Dose: 25 mg Sodium Chloride (Saline Flush) 10 ml FLUSH ASDIRECTED PRN PRN Reason: Keep Vein Open Sodium Chloride (Saline Flush) 2.5 ml FLUSH ASDIRECTED PRN PRN Reason: Keep Vein Open Spironolactone (Aldactone) 25 mg PO DAILY [facility] Last Admin: 06/18/19 12:41 Dose: 25 mg Sucralfate (Carafate) 1 gm PO QIDACANDBED [facility] Last Admin: 06/19/19 06:43 Dose: 1 gm Tramadol HCl (Ultram) 50 mg PO Q6H PRN PRN Reason: Pain Discontinued Medications Clonidine HCl (Catapres) 0.1 mg PO ONETIME ONE Stop: 06/18/19 17:01 Last Admin: 06/18/19 17:14 Dose: 0.1 mg Al Hydroxide/Mg Hydroxide 15 (ml/ Lidocaine HCl 5 ml) 0 ml PO ONETIME ONE Stop: 06/17/19 15:39 Last Admin: 06/17/19 16:07 Dose: 1 each Dextrose/Water (Dextrose 50% In Water) 50 ml IVPUSH ONETIME ONE Stop: 06/17/19 21:57 Last Admin: 06/17/19 22:16 Dose: 50 ml Hydralazine HCl (Apresoline) 10 mg IVPUSH ONETIME ONE Stop: 06/18/19 18:17 Last Admin: 06/18/19 18:42 Dose: 10 mg Hydrochlorothiazide (Hydrochlorothiazide) 25 mg PO DAILY MICHAEL Sodium Chloride (Normal Saline) 1,000 mls @ 999 mls/hr IV .Bolus ONE Stop: 06/17/19 14:04 Last Admin: 06/17/19 13:21 Dose: 999 mls/hr Sodium Chloride (Normal Saline) Confirm Administered Dose 20 mls @ as directed .ROUTE .STK-MED ONE Stop: 06/17/19 13:12 Last Admin: 06/17/19 13:39 Dose: 20 mls/hr Sodium Chloride (Normal Saline) 1,000 mls @ 999 mls/hr IV .Bolus ONE Stop: 06/17/19 15:36 Last Admin: 06/17/19 14:57 Dose: 999 mls/hr Sodium Chloride (Normal Saline) 1,000 mls @ 125 mls/hr IV ASDIRECTED MICHAEL Last Admin: 06/18/19 08:21 Dose: 125 mls/hr Insulin Human Regular (Novolin R) 10 unit SUBCUT ONETIME ONE; Protocol Stop: 06/17/19 15:05 Last Admin: 06/17/19 15:17 Dose: 10 unit Insulin Human Regular (Novolin R) 15 unit SUBCUT ONETIME ONE; Protocol Stop: 06/17/19 16:11 Last Admin: 06/17/19 16:16 Dose: 15 unit Lorazepam (Ativan) 1 mg IVPUSH ONETIME ONE Stop: 06/17/19 13:06 Last Admin: 06/17/19 13:19 Dose: 1 mg Lorazepam (Ativan) 1 mg IVPUSH ONETIME ONE Stop: 06/17/19 16:45 Last Admin: 06/17/19 17:02 Dose: 1 mg Lorazepam (Ativan) 1 mg PO ONETIME ONE Stop: 06/18/19 14:09 Last Admin: 06/18/19 19:31 Dose: Not Given Lorazepam (Ativan) 1 mg IVPUSH ONETIME ONE Stop: 06/18/19 15:01 Last Admin: 06/18/19 15:11 Dose: 1 mg Metoclopramide HCl (Reglan) 10 mg IV ONETIME ONE Stop: 06/17/19 14:28 Last Admin: 06/17/19 14:58 Dose: 10 mg Metoclopramide HCl (Reglan) 10 mg IV ONETIME ONE Stop: 06/17/19 15:39 Last Admin: 06/17/19 15:47 Dose: 10 mg Morphine Sulfate (Morphine) 2 mg IVPUSH Q3HR PRN PRN Reason: Pain Last Admin: 06/17/19 23:23 Dose: 2 mg Morphine Sulfate (Morphine) 2 mg IVPUSH Q4H PRN PRN Reason: Pain Last Admin: 06/19/19 00:57 Dose: 2 mg Ondansetron HCl (Zofran) 4 mg IVPUSH ONETIME ONE Stop: 06/17/19 13:05 Last Admin: 06/17/19 13:25 Dose: 4 mg Pantoprazole Sodium (Protonix Iv) 80 mg IVPUSH .BOLUS ONE Stop: 06/17/19 13:05 Last Admin: 06/17/19 13:25 Dose: 80 mg - Exam Quality Assessment: No: Supplemental Oxygen General: Alert, Oriented, Cooperative, Mild Distress HEENT: Pupils Equal, Pupils Reactive, EOMI. No: Mucous Membr. Moist/[place] (dry) Neck: Supple, Trachea Midline Lungs: Clear to Auscultation, Normal Respiratory Effort Cardiovascular: Regular Rate, Tachycardia GI/Abdominal Exam: Normal Bowel Sounds, Soft, No Distention. No: Guarding, Rigid, Rebound Back Exam: Normal Inspection, Full Range of Motion Extremities: Normal Inspection, No Pedal Edema Skin: Warm, Dry, Intact Neurological: No New Focal Deficit Psy/Mental Status: Alert, Normal Affect, Normal Mood - Problem List & Annotations (1) Abdominal pain SNOMED Code(s): 07739095 Code(s): R10.9 - UNSPECIFIED ABDOMINAL PAIN Status: Chronic Priority: High Current Visit: Yes Qualifiers: Abdominal location: upper abdomen, unspecified Qualified Code(s): R10.10 - Upper abdominal pain, unspecified (2) Gastroparesis SNOMED Code(s): 490064964 Code(s): K31.84 - GASTROPARESIS Status: Chronic Priority: High Current Visit: Yes (3) Gastroparesis diabeticorum SNOMED Code(s): 774675787 Code(s): E11.43 - TYPE 2 DIABETES W DIABETIC AUTONOMIC (POLY)NEUROPATHY; K31.84 - GASTROPARESIS Status: Acute Priority: High Current Visit: No (4) Diabetes mellitus type I SNOMED Code(s): 79793057 Code(s): E10.9 - TYPE 1 DIABETES MELLITUS WITHOUT COMPLICATIONS Status: Chronic Current Visit: No Qualifiers: Diabetes mellitus complication status: with kidney complications Diabetes mellitus complication detail: with chronic kidney disease Chronic kidney disease stage: stage 3 (moderate) Qualified Code(s): E10.22 - Type 1 diabetes mellitus with diabetic chronic kidney disease; N18.3 - Chronic kidney disease, stage 3 (moderate) (5) S/P BKA (below knee amputation) unilateral SNOMED Code(s): 764425418, 58826139, 204170277 Code(s): Z89.519 - ACQUIRED ABSENCE OF UNSPECIFIED LEG BELOW KNEE Status: Chronic Priority: Medium Current Visit: No - Problem List Review Problem List Initiated/Reviewed/Updated: Yes - My Orders Last 24 Hours: My Active Orders 06/18/19 21:41 hydrALAZINE [Apresoline] 25 mg IVPUSH Q8H PRN 06/18/19 23:45 Sodium Chloride 0.9% [Normal Saline] 1,000 ml IV ASDIRECTED 06/19/19 02:11 HYDROmorphone [Dilaudid] 1 mg IVPUSH Q4H PRN - Plan Plan:: The patient is a 34-year-old gentleman with known poorly controlled diabetes mellitus type 1 which had resulted in gastroparesis and chronic kidney disease. The patient is not appropriate for discharge home yet. I've added 0.5 mg of Ativan IV every 6 hours to help with the patient's pain and nausea and vomiting. The patient will be continued on IV fluids. I've also ordered repeat laboratory studies. The patient will have his diet advanced when he is able to have the nausea and vomiting under control. We'll continue with DVT prophylaxis. I've encouraged patient to ambulate.
[2019-06-19] MEDS: Pantoprazole 40 MG in Sodium Chloride 0.9% 10 ML IV SCH ×2 (08:58→20:20)
[2019-06-19] MEDS ORDERED: Hydrochlorothiazide 25 MG Tab PO SCH (09:00)
[2019-06-19] MEDS: Spironolactone 25 MG Tab PO SCH ×2 (09:05→09:23)
[2019-06-19] MEDS: Metoprolol Succinate 100 MG Tab.ER PO SCH ×2 (09:05→09:23)
[2019-06-19 10:54] LABS: HEMOGLOBIN A1C 9.9 % (4.5-6.2)
[2019-06-19] MEDS: LORazepam 2 MG/ML SDV IVPUSH PRN ×2 (12:00→20:31)
[2019-06-19] MEDS: Insulin Glargine,Human Rec. Analog 100 Units/ML 3 ML Pen SUBCUT SCH (21:41)
[2019-06-19] MEDS: atorvaSTATin 40 MG Tab PO SCH (21:45)
[2019-06-19] MEDS: amLODIPine 5 MG Tab PO SCH (21:48)
[2019-06-19] MEDS: Doxazosin 2 MG Tab PO SCH (21:50)
[2019-06-20] MEDS: Promethazine 25 MG/ML SDV IM PRN ×2 (01:53→08:33)
[2019-06-20] MEDS: LORazepam 2 MG/ML SDV IVPUSH PRN (04:28)
[2019-06-20] MEDS: hydrALAZINE 25 MG Tab PO SCH ×3 (04:59→21:06)
[2019-06-20] MEDS: HYDROmorphone 1 MG/ML Syringe IVPUSH PRN (05:35)
[2019-06-20] MEDS: Sucralfate Suspension 1 GM/10 ML Cup PO SCH ×4 (06:36→21:08)
[2019-06-20] MEDS: Insulin Aspart 100 Units/ML 3 ML Pen SUBCUT SCH ×3 (06:37→18:09)
[2019-06-20] MEDS: Pantoprazole 40 MG in Sodium Chloride 0.9% 10 ML IV SCH ×2 (08:11→21:09)
[2019-06-20] MEDS: Metoprolol Succinate 100 MG Tab.ER PO SCH (08:16)
[2019-06-20] MEDS: Spironolactone 25 MG Tab PO SCH (08:16)
--- NOTE | 2019-06-20 08:44 | PCM.PN ---
<Robina Jimenez M - Last Filed: 06/20/19 13:15> - General Info Date of Service: 06/20/19 Admission Dx/Problem (Free Text): Admission Diagnosis/Problem Admission Diagnosis/Problem Gastroparesis Subjective Update: Feeling ill this morning, pain 6/10 with a lot of nausea, nothing seems to help for a long period of time. No chest pain. Unable to keep water down per his reports. No diarrhea. Passing gas. Functional Status: Reports: Ambulating, Urinating. Denies: Pain Controlled, Tolerating Diet - Review of Systems General: Reports: No Symptoms. Denies: Weakness, Fatigue HEENT: Reports: No Symptoms Pulmonary: Reports: No Symptoms Cardiovascular: Reports: No Symptoms. Denies: Chest Pain Gastrointestinal: Reports: Abdominal Pain, Decreased Appetite, Flatus, Nausea, Vomiting. Denies: Diarrhea Genitourinary: Reports: No Symptoms. Denies: Dysuria, Frequency, Burning Musculoskeletal: Reports: No Symptoms Skin: Reports: No Symptoms Neurological: Reports: No Symptoms Psychiatric: Reports: No Symptoms - Patient Data Vitals - Most Recent: Last Vital Signs Temp 98.2 F 06/20/19 08:00 Pulse 96 06/20/19 08:16 Resp 16 06/20/19 08:00 BP 143/93 H 06/20/19 08:16 Pulse Ox 96 06/20/19 08:00 Weight - Most Recent: 77.337 kg I&O - Last 24 Hours: Intake & Output 06/19/19 06/20/19 06/20/19 22:59 06:59 14:59 Intake Total 2702 1631 Output Total 980 950 Balance 1722 681 Lab Results Last 24 Hours: Laboratory Results - last 24 hr 06/19/19 06/19/19 06/19/19 Range/Units 05:30 10:55 16:57 WBC (4.0-11.0) K/uL RBC (4.50-5.90) M/uL Hgb (13.0-17.0) g/dL Hct (38.0-50.0) % MCV (80.0-98.0) fL MCH (27.0-32.0) pg MCHC (31.0-37.0) g/dL RDW Std Deviation (28.0-62.0) fl RDW Coeff of Dania (11.0-15.0) % Plt Count (150-400) K/uL MPV (7.40-12.00) fL Neut % (Auto) (48.0-80.0) % Lymph % (Auto) (16.0-40.0) % Gila % (Auto) (0.0-15.0) % Eos % (Auto) (0.0-7.0) % Baso % (Auto) (0.0-1.5) % Neut # (Auto) (1.4-5.7) K/uL Lymph # (Auto) (0.6-2.4) K/uL Gila # (Auto) (0.0-0.8) K/uL Eos # (Auto) (0.0-0.7) K/uL Baso # (Auto) (0.0-0.1) K/uL Nucleated RBC % /100WBC Nucleated RBCs # K/uL POC Glucose 93 103 (60-110) mg/dL Hemoglobin A1c 9.9 H (4.5-6.2) % 06/19/19 06/20/19 06/20/19 Range/Units 21:25 06:11 08:31 WBC 13.47 H (4.0-11.0) K/uL RBC 5.11 (4.50-5.90) M/uL Hgb 11.2 L (13.0-17.0) g/dL Hct 35.9 L (38.0-50.0) % MCV 70.3 L (80.0-98.0) fL MCH 21.9 L (27.0-32.0) pg MCHC 31.2 (31.0-37.0) g/dL RDW Std Deviation 42.3 (28.0-62.0) fl RDW Coeff of Dania 17 H (11.0-15.0) % Plt Count 328 (150-400) K/uL MPV 10.30 (7.40-12.00) fL Neut % (Auto) 77.0 (48.0-80.0) % Lymph % (Auto) 17.5 (16.0-40.0) % Gila % (Auto) 5.2 (0.0-15.0) % Eos % (Auto) 0.1 (0.0-7.0) % Baso % (Auto) 0.2 (0.0-1.5) % Neut # (Auto) 10.4 H (1.4-5.7) K/uL Lymph # (Auto) 2.4 (0.6-2.4) K/uL Gila # (Auto) 0.7 (0.0-0.8) K/uL Eos # (Auto) 0.0 (0.0-0.7) K/uL Baso # (Auto) 0.0 (0.0-0.1) K/uL Nucleated RBC % 0.0 /100WBC Nucleated RBCs # 0 K/uL POC Glucose 141 H 93 (60-110) mg/dL Hemoglobin A1c (4.5-6.2) % Med Orders - Current: Current Medications Acetaminophen (Tylenol) 650 mg PO Q6H PRN PRN Reason: Pain Last Admin: 06/17/19 22:16 Dose: 650 mg Amlodipine Besylate (Norvasc) 10 mg PO BEDTIME [facility] Last Admin: 06/19/19 21:48 Dose: 10 mg Atorvastatin Calcium (Lipitor) 80 mg PO BEDTIME [facility] Last Admin: 06/19/19 21:45 Dose: 80 mg Doxazosin Mesylate (Cardura) 2 mg PO BEDTIME [facility] Last Admin: 06/19/19 21:50 Dose: 2 mg Enalapril Maleate (Vasotec) 40 mg PO BEDTIME [facility] Last Admin: 06/19/19 21:49 Dose: 40 mg Hydralazine HCl (Apresoline) 25 mg PO TID [facility] Last Admin: 06/20/19 04:59 Dose: 25 mg Hydralazine HCl (Apresoline) 25 mg IVPUSH Q8H PRN PRN Reason: Hypertension Last Admin: 06/19/19 11:58 Dose: 25 mg Hydromorphone HCl (Dilaudid) 1 mg IVPUSH Q4H PRN PRN Reason: Pain (severe 7-10) Last Admin: 06/20/19 05:35 Dose: 1 mg Pantoprazole Sodium 40 mg/ (Sodium Chloride) 10 mls @ 300 mls/hr IV Q12H [facility] Last Admin: 06/20/19 08:11 Dose: 300 mls/hr Sodium Chloride (Normal Saline) 1,000 mls @ 125 mls/hr IV ASDIRECTED [facility] Last Admin: 06/19/19 21:00 Dose: 125 mls/hr Insulin Aspart (Novolog) 0 unit SUBCUT TIDAC [facility]; Protocol Last Admin: 06/20/19 06:37 Dose: Not Given Insulin Glargine (Lantus Solostar) 35 units SUBCUT BEDTIME [facility] Last Admin: 06/19/19 21:41 Dose: 35 units Lorazepam (Ativan) 0.5 mg IVPUSH Q6H PRN PRN Reason: Nausea/Vomiting Last Admin: 06/20/19 04:28 Dose: 0.5 mg Metoprolol Succinate (Toprol Xl) 200 mg PO DAILY [facility] Last Admin: 06/20/19 08:16 Dose: 100 mg Ondansetron HCl (Zofran) 4 mg IVPUSH Q4H PRN PRN Reason: Nausea Last Admin: 06/19/19 20:17 Dose: 4 mg Promethazine HCl (Phenergan) 25 mg IM Q6H PRN PRN Reason: Nausea Last Admin: 06/20/19 08:33 Dose: 25 mg Sodium Chloride (Saline Flush) 10 ml FLUSH ASDIRECTED PRN PRN Reason: Keep Vein Open Sodium Chloride (Saline Flush) 2.5 ml FLUSH ASDIRECTED PRN PRN Reason: Keep Vein Open Spironolactone (Aldactone) 25 mg PO DAILY [facility] Last Admin: 06/20/19 08:16 Dose: 25 mg Sucralfate (Carafate) 1 gm PO QIDACANDBED [facility] Last Admin: 06/20/19 06:36 Dose: Not Given Tramadol HCl (Ultram) 50 mg PO Q6H PRN PRN Reason: Pain Last Admin: 06/20/19 04:57 Dose: 50 mg Discontinued Medications Clonidine HCl (Catapres) 0.1 mg PO ONETIME ONE Stop: 06/18/19 17:01 Last Admin: 06/18/19 17:14 Dose: 0.1 mg Al Hydroxide/Mg Hydroxide 15 (ml/ Lidocaine HCl 5 ml) 0 ml PO ONETIME ONE Stop: 06/17/19 15:39 Last Admin: 06/17/19 16:07 Dose: 1 each Dextrose/Water (Dextrose 50% In Water) 50 ml IVPUSH ONETIME ONE Stop: 06/17/19 21:57 Last Admin: 06/17/19 22:16 Dose: 50 ml Hydralazine HCl (Apresoline) 10 mg IVPUSH ONETIME ONE Stop: 06/18/19 18:17 Last Admin: 06/18/19 18:42 Dose: 10 mg Hydrochlorothiazide (Hydrochlorothiazide) 25 mg PO DAILY [facility] Sodium Chloride (Normal Saline) 1,000 mls @ 999 mls/hr IV .Bolus ONE Stop: 06/17/19 14:04 Last Admin: 06/17/19 13:21 Dose: 999 mls/hr Sodium Chloride (Normal Saline) Confirm Administered Dose 20 mls @ as directed .ROUTE .STK-MED ONE Stop: 06/17/19 13:12 Last Admin: 06/17/19 13:39 Dose: 20 mls/hr Sodium Chloride (Normal Saline) 1,000 mls @ 999 mls/hr IV .Bolus ONE Stop: 06/17/19 15:36 Last Admin: 06/17/19 14:57 Dose: 999 mls/hr Sodium Chloride (Normal Saline) 1,000 mls @ 125 mls/hr IV ASDIRECTED [facility] Last Admin: 06/18/19 08:21 Dose: 125 mls/hr Insulin Human Regular (Novolin R) 10 unit SUBCUT ONETIME ONE; Protocol Stop: 06/17/19 15:05 Last Admin: 06/17/19 15:17 Dose: 10 unit Insulin Human Regular (Novolin R) 15 unit SUBCUT ONETIME ONE; Protocol Stop: 06/17/19 16:11 Last Admin: 06/17/19 16:16 Dose: 15 unit Lorazepam (Ativan) 1 mg IVPUSH ONETIME ONE Stop: 06/17/19 13:06 Last Admin: 06/17/19 13:19 Dose: 1 mg Lorazepam (Ativan) 1 mg IVPUSH ONETIME ONE Stop: 06/17/19 16:45 Last Admin: 06/17/19 17:02 Dose: 1 mg Lorazepam (Ativan) 1 mg PO ONETIME ONE Stop: 06/18/19 14:09 Last Admin: 06/18/19 19:31 Dose: Not Given Lorazepam (Ativan) 1 mg IVPUSH ONETIME ONE Stop: 06/18/19 15:01 Last Admin: 06/18/19 15:11 Dose: 1 mg Metoclopramide HCl (Reglan) 10 mg IV ONETIME ONE Stop: 06/17/19 14:28 Last Admin: 06/17/19 14:58 Dose: 10 mg Metoclopramide HCl (Reglan) 10 mg IV ONETIME ONE Stop: 06/17/19 15:39 Last Admin: 06/17/19 15:47 Dose: 10 mg Morphine Sulfate (Morphine) 2 mg IVPUSH Q3HR PRN PRN Reason: Pain Last Admin: 06/17/19 23:23 Dose: 2 mg Morphine Sulfate (Morphine) 2 mg IVPUSH Q4H PRN PRN Reason: Pain Last Admin: 06/19/19 00:57 Dose: 2 mg Ondansetron HCl (Zofran) 4 mg IVPUSH ONETIME ONE Stop: 06/17/19 13:05 Last Admin: 06/17/19 13:25 Dose: 4 mg Pantoprazole Sodium (Protonix Iv) 80 mg IVPUSH .BOLUS ONE Stop: 06/17/19 13:05 Last Admin: 06/17/19 13:25 Dose: 80 mg - Exam General: Alert, Oriented, Cooperative Lungs: Clear to Auscultation, Normal Respiratory Effort Cardiovascular: Regular Rate, Regular Rhythm GI/Abdominal Exam: Normal Bowel Sounds, Soft, Tender (LUQ) Back Exam: Normal Inspection, Full Range of Motion Extremities: Normal Inspection, Normal Range of Motion, Non-Tender Psy/Mental Status: Alert, Normal Affect, Normal Mood - Problem List & Annotations (1) Abdominal pain SNOMED Code(s): 91826875 Code(s): R10.9 - UNSPECIFIED ABDOMINAL PAIN Status: Chronic Priority: High Current Visit: Yes Qualifiers: Abdominal location: upper abdomen, unspecified Qualified Code(s): R10.10 - Upper abdominal pain, unspecified (2) Gastroparesis SNOMED Code(s): 359272320 Code(s): K31.84 - GASTROPARESIS Status: Acute Priority: High Current Visit: Yes (3) Intractable nausea and vomiting SNOMED Code(s): 316470950 Code(s): R11.2 - NAUSEA WITH VOMITING, UNSPECIFIED Status: Acute Priority : High Current Visit: No (4) Chronic kidney disease, stage 3 (moderate) SNOMED Code(s): 347162778 Code(s): N18.3 - CHRONIC KIDNEY DISEASE, STAGE 3 (MODERATE) Status: Chronic Priority: High Current Visit: No (5) Diabetes mellitus type I SNOMED Code(s): 19038594 Code(s): E10.9 - TYPE 1 DIABETES MELLITUS WITHOUT COMPLICATIONS Status: Chronic Current Visit: No Qualifiers: Diabetes mellitus complication status: with kidney complications Diabetes mellitus complication detail: with chronic kidney disease Chronic kidney disease stage: stage 3 (moderate) Qualified Code(s): E10.22 - Type 1 diabetes mellitus with diabetic chronic kidney disease; N18.3 - Chronic kidney disease, stage 3 (moderate) (6) History of CVA (cerebrovascular accident) SNOMED Code(s): 558572376 Code(s): Z86.73 - PRSNL HX OF TIA (TIA), AND CEREB INFRC W/O RESID DEFICITS Status: Chronic Current Visit: No (7) History of GI bleed SNOMED Code(s): 011012881 Code(s): Z87.19 - PERSONAL HISTORY OF OTHER DISEASES OF THE DIGESTIVE SYSTEM Status: Chronic Current Visit: No (8) Hx of gastroesophageal reflux (GERD) SNOMED Code(s): 28469962121640 Code(s): Z87.19 - PERSONAL HISTORY OF OTHER DISEASES OF THE DIGESTIVE SYSTEM Status: Chronic Current Visit: No (9) Hypertension SNOMED Code(s): 03255801 Code(s): I10 - ESSENTIAL (PRIMARY) HYPERTENSION Status: Chronic Current Visit: No Qualifiers: Hypertension type: essential hypertension Qualified Code(s): I10 - Essential (primary) hypertension (10) S/P BKA (below knee amputation) unilateral SNOMED Code(s): 054176637, 44055710, 068828370 Code(s): Z89.519 - ACQUIRED ABSENCE OF UNSPECIFIED LEG BELOW KNEE Status: Chronic Priority: Medium Current Visit: No - Problem List Review Problem List Initiated/Reviewed/Updated: Yes - My Orders Last 24 Hours: My Active Orders 06/20/19 08:31 COMPREHENSIVE METABOLIC PN,CMP [CHEM] Routine MAGNESIUM [CHEM] Routine PHOSPHORUS [CHEM] Routine - Plan Plan:: This 34 year old male admitted with abdominal pain and intractable nausea and vomiting. 1. Gastroparesis: Pain likely secondary to gastroparesis. Reports he cut back on taking Reglan due to potential side effects. We discussed to necessity of Reglan due to gastroparesis and cutting dose is appropriate but he may still need this. He reports he has appointment with GI coming up June 27. I highly recommended this for continued care and other recommendations for gastroparesis. Will start Reglan 10 mg IV Q8hr now and monitor response. Will decrease dose of Dilaudid to 0.5 mg every 2 hr to help with pain management. Waqas seemed happy with this plan. Continue other anti-emetics PRN. 2. DM Type 1: Not eating much, only CL currently. Will cut Lantus down to 22 units in the evening until eating more consistent foods. Continue meal time Novolog SSI. 3. HTN: Stable today, continue home medications as well. 4. Hx GI Bleed: Hgb stable, continue to monitor. Protonix IV daily. 5. Hx CKD: Stable. Monitor. VTE prophylaxis: SCDs and ambulation Dispo: 2-3 days pending improvement. <Santana Gilbert - Last Filed: 06/20/19 18:11> - General Info Admission Dx/Problem (Free Text): I have seen and examined the patient independently of Chanell Jimenez CNP. I have discussed the case with her. I have reviewed and agree with the assessment and plan as outlined very her for this patient. Please see orders. - Patient Data Vitals - Most Recent: Last Vital Signs Temp 37.2 C 06/20/19 17:30 Pulse 91 06/20/19 17:30 Resp 16 06/20/19 17:30 BP 158/92 H 06/20/19 17:30 Pulse Ox 97 06/20/19 17:30 I&O - Last 24 Hours: Intake & Output 06/20/19 06/20/19 06/20/19 06:59 14:59 22:59 Intake Total 1631 772 Output Total 950 Balance 681 772 Lab Results Last 24 Hours: Laboratory Results - last 24 hr 06/19/19 06/20/19 06/20/19 Range/Units 21:25 06:11 08:31 WBC 13.47 H (4.0-11.0) K/uL RBC 5.11 (4.50-5.90) M/uL Hgb 11.2 L (13.0-17.0) g/dL Hct 35.9 L (38.0-50.0) % MCV 70.3 L (80.0-98.0) fL MCH 21.9 L (27.0-32.0) pg MCHC 31.2 (31.0-37.0) g/dL RDW Std Deviation 42.3 (28.0-62.0) fl RDW Coeff of Dania 17 H (11.0-15.0) % Plt Count 328 (150-400) K/uL MPV 10.30 (7.40-12.00) fL Neut % (Auto) 77.0 (48.0-80.0) % Lymph % (Auto) 17.5 (16.0-40.0) % Gila % (Auto) 5.2 (0.0-15.0) % Eos % (Auto) 0.1 (0.0-7.0) % Baso % (Auto) 0.2 (0.0-1.5) % Neut # (Auto) 10.4 H (1.4-5.7) K/uL Lymph # (Auto) 2.4 (0.6-2.4) K/uL Gila # (Auto) 0.7 (0.0-0.8) K/uL Eos # (Auto) 0.0 (0.0-0.7) K/uL Baso # (Auto) 0.0 (0.0-0.1) K/uL Nucleated RBC % 0.0 /100WBC Nucleated RBCs # 0 K/uL Sodium (136-148) mmol/L Potassium (3.5-5.1) mmol/L Chloride (98-107) mmol/L Carbon Dioxide (21.0-32.0) mmol/L BUN (7.0-18.0) mg/dL Creatinine (0.8-1.3) mg/dL Est Cr Clr Drug Dosing mL/min Estimated GFR (MDRD) ml/min Glucose (74-106) mg/dL POC Glucose 141 H 93 (60-110) mg/dL Calcium (8.5-10.1) mg/dL Phosphorus (2.6-4.7) mg/dL Magnesium (1.8-2.4) mg/dL Total Bilirubin (0.2-1.0) mg/dL AST (15-37) IU/L ALT (14-63) IU/L Alkaline Phosphatase (46-116) U/L Total Protein (6.4-8.2) g/dL Albumin (3.4-5.0) g/dL Globulin (2.6-4.0) g/dL Albumin/Globulin Ratio (0.9-1.6) 06/20/19 06/20/19 06/20/19 Range/Units 08:31 11:45 12:33 WBC (4.0-11.0) K/uL RBC (4.50-5.90) M/uL Hgb (13.0-17.0) g/dL Hct (38.0-50.0) % MCV (80.0-98.0) fL MCH (27.0-32.0) pg MCHC (31.0-37.0) g/dL RDW Std Deviation (28.0-62.0) fl RDW Coeff of Dania (11.0-15.0) % Plt Count (150-400) K/uL MPV (7.40-12.00) fL Neut % (Auto) (48.0-80.0) % Lymph % (Auto) (16.0-40.0) % Gila % (Auto) (0.0-15.0) % Eos % (Auto) (0.0-7.0) % Baso % (Auto) (0.0-1.5) % Neut # (Auto) (1.4-5.7) K/uL Lymph # (Auto) (0.6-2.4) K/uL Gila # (Auto) (0.0-0.8) K/uL Eos # (Auto) (0.0-0.7) K/uL Baso # (Auto) (0.0-0.1) K/uL Nucleated RBC % /100WBC Nucleated RBCs # K/uL Sodium 146 (136-148) mmol/L Potassium 3.3 L (3.5-5.1) mmol/L Chloride 109 H (98-107) mmol/L Carbon Dioxide 27.7 (21.0-32.0) mmol/L BUN 24 H (7.0-18.0) mg/dL Creatinine 2.4 H (0.8-1.3) mg/dL Est Cr Clr Drug Dosing 43.78 mL/min Estimated GFR (MDRD) 38.0 ml/min Glucose 55 L (74-106) mg/dL POC Glucose 60 68 (60-110) mg/dL Calcium 8.2 L (8.5-10.1) mg/dL Phosphorus 4.1 (2.6-4.7) mg/dL Magnesium 2.0 (1.8-2.4) mg/dL Total Bilirubin 0.2 (0.2-1.0) mg/dL AST 46 H (15-37) IU/L ALT 35 (14-63) IU/L Alkaline Phosphatase 102 (46-116) U/L Total Protein 6.6 (6.4-8.2) g/dL Albumin 2.5 L (3.4-5.0) g/dL Globulin 4.1 H (2.6-4.0) g/dL Albumin/Globulin Ratio 0.6 L (0.9-1.6) 06/20/19 06/20/19 Range/Units 12:52 14:37 WBC (4.0-11.0) K/uL RBC (4.50-5.90) M/uL Hgb (13.0-17.0) g/dL Hct (38.0-50.0) % MCV (80.0-98.0) fL MCH (27.0-32.0) pg MCHC (31.0-37.0) g/dL RDW Std Deviation (28.0-62.0) fl RDW Coeff of Dania (11.0-15.0) % Plt Count (150-400) K/uL MPV (7.40-12.00) fL Neut % (Auto) (48.0-80.0) % Lymph % (Auto) (16.0-40.0) % Gila % (Auto) (0.0-15.0) % Eos % (Auto) (0.0-7.0) % Baso % (Auto) (0.0-1.5) % Neut # (Auto) (1.4-5.7) K/uL Lymph # (Auto) (0.6-2.4) K/uL Gila # (Auto) (0.0-0.8) K/uL Eos # (Auto) (0.0-0.7) K/uL Baso # (Auto) (0.0-0.1) K/uL Nucleated RBC % /100WBC Nucleated RBCs # K/uL Sodium (136-148) mmol/L Potassium (3.5-5.1) mmol/L Chloride (98-107) mmol/L Carbon Dioxide (21.0-32.0) mmol/L BUN (7.0-18.0) mg/dL Creatinine (0.8-1.3) mg/dL Est Cr Clr Drug Dosing mL/min Estimated GFR (MDRD) ml/min Glucose (74-106) mg/dL POC Glucose 80 80 (60-110) mg/dL Calcium (8.5-10.1) mg/dL Phosphorus (2.6-4.7) mg/dL Magnesium (1.8-2.4) mg/dL Total Bilirubin (0.2-1.0) mg/dL AST (15-37) IU/L ALT (14-63) IU/L Alkaline Phosphatase (46-116) U/L Total Protein (6.4-8.2) g/dL Albumin (3.4-5.0) g/dL Globulin (2.6-4.0) g/dL Albumin/Globulin Ratio (0.9-1.6) Med Orders - Current: Current Medications Acetaminophen (Tylenol) 650 mg PO Q6H PRN PRN Reason: Pain Last Admin: 06/17/19 22:16 Dose: 650 mg Amlodipine Besylate (Norvasc) 10 mg PO BEDTIME [facility] Last Admin: 06/19/19 21:48 Dose: 10 mg Atorvastatin Calcium (Lipitor) 80 mg PO BEDTIME [facility] Last Admin: 06/19/19 21:45 Dose: 80 mg Doxazosin Mesylate (Cardura) 2 mg PO BEDTIME [facility] Last Admin: 06/19/19 21:50 Dose: 2 mg Enalapril Maleate (Vasotec) 40 mg PO BEDTIME [facility] Last Admin: 06/19/19 21:49 Dose: 40 mg Hydralazine HCl (Apresoline) 25 mg PO TID [facility] Last Admin: 06/20/19 14:30 Dose: 25 mg Hydralazine HCl (Apresoline) 25 mg IVPUSH Q8H PRN PRN Reason: Hypertension Last Admin: 06/19/19 11:58 Dose: 25 mg Hydromorphone HCl (Dilaudid) 0.5 mg IVPUSH Q2H PRN PRN Reason: Pain (severe 7-10) Pantoprazole Sodium 40 mg/ (Sodium Chloride) 10 mls @ 300 mls/hr IV Q12H [facility] Last Admin: 06/20/19 08:11 Dose: 300 mls/hr Sodium Chloride (Normal Saline) 1,000 mls @ 75 mls/hr IV ASDIRECTED [facility] Last Admin: 06/20/19 09:56 Dose: 75 mls/hr Insulin Aspart (Novolog) 0 unit SUBCUT TIDAC [facility]; Protocol Last Admin: 06/20/19 18:09 Dose: Not Given Insulin Glargine (Lantus Solostar) 22 units SUBCUT BEDTIME [facility] Lorazepam (Ativan) 0.5 mg IVPUSH Q6H PRN PRN Reason: Nausea/Vomiting Last Admin: 06/20/19 04:28 Dose: 0.5 mg Metoclopramide HCl (Reglan) 10 mg IVPUSH Q8H [facility] Last Admin: 06/20/19 17:13 Dose: 10 mg Metoprolol Succinate (Toprol Xl) 200 mg PO DAILY [facility] Last Admin: 06/20/19 08:16 Dose: 100 mg Ondansetron HCl (Zofran) 4 mg IVPUSH Q4H PRN PRN Reason: Nausea Last Admin: 06/19/19 20:17 Dose: 4 mg Promethazine HCl (Phenergan) 25 mg IM Q6H PRN PRN Reason: Nausea Last Admin: 06/20/19 08:33 Dose: 25 mg Sodium Chloride (Saline Flush) 10 ml FLUSH ASDIRECTED PRN PRN Reason: Keep Vein Open Sodium Chloride (Saline Flush) 2.5 ml FLUSH ASDIRECTED PRN PRN Reason: Keep Vein Open Spironolactone (Aldactone) 25 mg PO DAILY [facility] Last Admin: 06/20/19 08:16 Dose: 25 mg Sucralfate (Carafate) 1 gm PO QIDACANDBED [facility] Last Admin: 06/20/19 17:13 Dose: 1 gm Tramadol HCl (Ultram) 50 mg PO Q6H PRN PRN Reason: Pain Last Admin: 06/20/19 04:57 Dose: 50 mg Discontinued Medications Clonidine HCl (Catapres) 0.1 mg PO ONETIME ONE Stop: 06/18/19 17:01 Last Admin: 06/18/19 17:14 Dose: 0.1 mg Al Hydroxide/Mg Hydroxide 15 (ml/ Lidocaine HCl 5 ml) 0 ml PO ONETIME ONE Stop: 06/17/19 15:39 Last Admin: 06/17/19 16:07 Dose: 1 each Dextrose/Water (Dextrose 50% In Water) 50 ml IVPUSH ONETIME ONE Stop: 06/17/19 21:57 Last Admin: 06/17/19 22:16 Dose: 50 ml Dextrose/Water (Dextrose 50% In Water) 25 ml IVPUSH ONETIME ONE Stop: 06/20/19 12:38 Last Admin: 06/20/19 12:57 Dose: Not Given Hydralazine HCl (Apresoline) 10 mg IVPUSH ONETIME ONE Stop: 06/18/19 18:17 Last Admin: 06/18/19 18:42 Dose: 10 mg Hydrochlorothiazide (Hydrochlorothiazide) 25 mg PO DAILY [facility] Hydromorphone HCl (Dilaudid) 1 mg IVPUSH Q4H PRN PRN Reason: Pain (severe 7-10) Last Admin: 06/20/19 05:35 Dose: 1 mg Sodium Chloride (Normal Saline) 1,000 mls @ 999 mls/hr IV .Bolus ONE Stop: 06/17/19 14:04 Last Admin: 06/17/19 13:21 Dose: 999 mls/hr Sodium Chloride (Normal Saline) Confirm Administered Dose 20 mls @ as directed .ROUTE .STK-MED ONE Stop: 06/17/19 13:12 Last Admin: 06/17/19 13:39 Dose: 20 mls/hr Sodium Chloride (Normal Saline) 1,000 mls @ 999 mls/hr IV .Bolus ONE Stop: 06/17/19 15:36 Last Admin: 06/17/19 14:57 Dose: 999 mls/hr Sodium Chloride (Normal Saline) 1,000 mls @ 125 mls/hr IV ASDIRECTED [facility] Last Admin: 06/18/19 08:21 Dose: 125 mls/hr Sodium Chloride (Normal Saline) 1,000 mls @ 125 mls/hr IV ASDIRECTED [facility] Last Admin: 06/19/19 21:00 Dose: 125 mls/hr Insulin Glargine (Lantus Solostar) 35 units SUBCUT BEDTIME [facility] Last Admin: 06/19/19 21:41 Dose: 35 units Insulin Human Regular (Novolin R) 10 unit SUBCUT ONETIME ONE; Protocol Stop: 06/17/19 15:05 Last Admin: 06/17/19 15:17 Dose: 10 unit Insulin Human Regular (Novolin R) 15 unit SUBCUT ONETIME ONE; Protocol Stop: 06/17/19 16:11 Last Admin: 06/17/19 16:16 Dose: 15 unit Lorazepam (Ativan) 1 mg IVPUSH ONETIME ONE Stop: 06/17/19 13:06 Last Admin: 06/17/19 13:19 Dose: 1 mg Lorazepam (Ativan) 1 mg IVPUSH ONETIME ONE Stop: 06/17/19 16:45 Last Admin: 06/17/19 17:02 Dose: 1 mg Lorazepam (Ativan) 1 mg PO ONETIME ONE Stop: 06/18/19 14:09 Last Admin: 06/18/19 19:31 Dose: Not Given Lorazepam (Ativan) 1 mg IVPUSH ONETIME ONE Stop: 06/18/19 15:01 Last Admin: 06/18/19 15:11 Dose: 1 mg Metoclopramide HCl (Reglan) 10 mg IV ONETIME ONE Stop: 06/17/19 14:28 Last Admin: 06/17/19 14:58 Dose: 10 mg Metoclopramide HCl (Reglan) 10 mg IV ONETIME ONE Stop: 06/17/19 15:39 Last Admin: 06/17/19 15:47 Dose: 10 mg Morphine Sulfate (Morphine) 2 mg IVPUSH Q3HR PRN PRN Reason: Pain Last Admin: 06/17/19 23:23 Dose: 2 mg Morphine Sulfate (Morphine) 2 mg IVPUSH Q4H PRN PRN Reason: Pain Last Admin: 06/19/19 00:57 Dose: 2 mg Ondansetron HCl (Zofran) 4 mg IVPUSH ONETIME ONE Stop: 06/17/19 13:05 Last Admin: 06/17/19 13:25 Dose: 4 mg Pantoprazole Sodium (Protonix Iv) 80 mg IVPUSH .BOLUS ONE Stop: 06/17/19 13:05 Last Admin: 06/17/19 13:25 Dose: 80 mg - Problem List & Annotations (1) Abdominal pain SNOMED Code(s): 08020616 Code(s): R10.9 - UNSPECIFIED ABDOMINAL PAIN Status: Chronic Priority: High Current Visit: Yes Qualifiers: Abdominal location: upper abdomen, unspecified Qualified Code(s): R10.10 - Upper abdominal pain, unspecified (2) Gastroparesis SNOMED Code(s): 182307335 Code(s): K31.84 - GASTROPARESIS Status: Acute Priority: High Current Visit: Yes (3) Gastroparesis diabeticorum SNOMED Code(s): 938299751 Code(s): E11.43 - TYPE 2 DIABETES W DIABETIC AUTONOMIC (POLY)NEUROPATHY; K31.84 - GASTROPARESIS Status: Acute Priority: High Current Visit: No (4) Diabetes mellitus type I SNOMED Code(s): 32777436 Code(s): E10.9 - TYPE 1 DIABETES MELLITUS WITHOUT COMPLICATIONS Status: Chronic Current Visit: No Qualifiers: Diabetes mellitus complication status: with kidney complications Diabetes mellitus complication detail: with chronic kidney disease Chronic kidney disease stage: stage 3 (moderate) Qualified Code(s): E10.22 - Type 1 diabetes mellitus with diabetic chronic kidney disease; N18.3 - Chronic kidney disease, stage 3 (moderate) (5) S/P BKA (below knee amputation) unilateral SNOMED Code(s): 873647515, 68334317, 207705412 Code(s): Z89.519 - ACQUIRED ABSENCE OF UNSPECIFIED LEG BELOW KNEE Status: Chronic Priority: Medium Current Visit: No - My Orders Last 24 Hours: My Active Orders 06/19/19 18:26 Admission Status [Patient Status] [ADT] Routine
[2019-06-20] MEDS ORDERED: HYDROmorphone 1 MG/ML Syringe IVPUSH PRN (08:45)
[2019-06-20 09:22] LABS: CARBON DIOXIDE,CO2 27.7 mmol/L (21.0-32.0); POTASSIUM,K 3.3 mmol/L (3.5-5.1)
[2019-06-20] MEDS: Metoclopramide 10 MG/2 ML SDV IVPUSH SCH ×3 (09:56→23:26)
[2019-06-20] MEDS: Sodium Chloride 0.9% 1,000 ML IV SCH ×2 (09:56→21:09)
[2019-06-20] MEDS ORDERED: 50% Dextrose in Water 50 ML Syringe IVPUSH ONE ×2 (12:37→23:54)
[2019-06-20] MEDS ORDERED: Potassium Chloride 20 MEQ Tab.ER PO ONE (19:50)
[2019-06-20] MEDS ORDERED: Insulin Glargine,Human Rec. Analog 100 Units/ML 3 ML Pen SUBCUT SCH (21:00)
[2019-06-20] MEDS: atorvaSTATin 40 MG Tab PO SCH (21:06)
[2019-06-20] MEDS: amLODIPine 5 MG Tab PO SCH (21:07)
[2019-06-20] MEDS: Doxazosin 2 MG Tab PO SCH (21:08)
[2019-06-21] MEDS: Metoclopramide 10 MG/2 ML SDV IVPUSH SCH ×2 (00:38→08:44)
[2019-06-21] MEDS: hydrALAZINE 25 MG Tab PO SCH (06:26)
[2019-06-21] MEDS: Sucralfate Suspension 1 GM/10 ML Cup PO SCH ×2 (06:26→06:52)
[2019-06-21 06:30] LABS: CARBON DIOXIDE,CO2 25.4 mmol/L (21.0-32.0); POTASSIUM,K 3.8 mmol/L (3.5-5.1)
[2019-06-21] MEDS: Insulin Aspart 100 Units/ML 3 ML Pen SUBCUT SCH (06:52)
[2019-06-21] MEDS ORDERED: 50% Dextrose in Water 50 ML Syringe IVPUSH ONE (07:03)
[2019-06-21 08:43] VITALS: BP 169/108; PULSE 104
[2019-06-21] MEDS: Pantoprazole 40 MG in Sodium Chloride 0.9% 10 ML IV SCH (08:43)
[2019-06-21] MEDS: Metoprolol Succinate 100 MG Tab.ER PO SCH (08:43)
[2019-06-21] MEDS: Spironolactone 25 MG Tab PO SCH (08:43)
--- NOTE | 2019-06-21 09:07 | PCM.DCSUM1 ---
<Robina Jimenez M - Last Filed: 06/21/19 09:57> Discharge Summary - Hospital Course Brief History: 34 yo male with pmh of DM and gastroparesis with multiple admissions for chronic abdominal pain. Diagnosis: Stroke: No - Discharge Data Discharge Date: 06/21/19 Discharge Disposition: Home, Self-Care 01 Condition: Stable - Referral to Home Health Primary Care Physician: PCP None - Discharge Diagnosis/Problem(s) (1) Abdominal pain SNOMED Code(s): 26769045 ICD Code: R10.9 - UNSPECIFIED ABDOMINAL PAIN Status: Chronic Priority: High Qualifiers: Abdominal location: upper abdomen, unspecified Qualified Code(s): R10.10 - Upper abdominal pain, unspecified (2) Gastroparesis SNOMED Code(s): 722793249 ICD Code: K31.84 - GASTROPARESIS Status: Acute Priority: High (3) Intractable nausea and vomiting SNOMED Code(s): 101727998 ICD Code: R11.2 - NAUSEA WITH VOMITING, UNSPECIFIED Status: Acute Priority: High (4) Chronic kidney disease, stage 3 (moderate) SNOMED Code(s): 394930217 ICD Code: N18.3 - CHRONIC KIDNEY DISEASE, STAGE 3 (MODERATE) Status: Chronic Priority: High (5) Diabetes mellitus type I SNOMED Code(s): 24576889 ICD Code: E10.9 - TYPE 1 DIABETES MELLITUS WITHOUT COMPLICATIONS Status: Chronic Qualifiers: Diabetes mellitus complication status: with kidney complications Diabetes mellitus complication detail: with chronic kidney disease Chronic kidney disease stage: stage 3 (moderate) Qualified Code(s): E10.22 - Type 1 diabetes mellitus with diabetic chronic kidney disease; N18.3 - Chronic kidney disease, stage 3 (moderate) (6) History of CVA (cerebrovascular accident) SNOMED Code(s): 077716083 ICD Code: Z86.73 - PRSNL HX OF TIA (TIA), AND CEREB INFRC W/O RESID DEFICITS Status: Chronic (7) History of GI bleed SNOMED Code(s): 906695993 ICD Code: Z87.19 - PERSONAL HISTORY OF OTHER DISEASES OF THE DIGESTIVE SYSTEM Status: Chronic (8) Hx of gastroesophageal reflux (GERD) SNOMED Code(s): 30710458813213 ICD Code: Z87.19 - PERSONAL HISTORY OF OTHER DISEASES OF THE DIGESTIVE SYSTEM Status: Chronic (9) Hypertension SNOMED Code(s): 06009209 ICD Code: I10 - ESSENTIAL (PRIMARY) HYPERTENSION Status: Chronic Qualifiers: Hypertension type: essential hypertension Qualified Code(s): I10 - Essential (primary) hypertension (10) S/P BKA (below knee amputation) unilateral SNOMED Code(s): 068021028, 01383652, 450075758 ICD Code: Z89.519 - ACQUIRED ABSENCE OF UNSPECIFIED LEG BELOW KNEE Status: Chronic Priority: Medium - Patient Instructions Diet: Diabetic Diet, GI Soft/Low Residue/Low Fiber Activity: As Tolerated, No Strenuous Activities Showering/Bathing: May Shower Notify Provider of: Fever, Increased Pain, Swelling and Redness, Drainage, Nausea and/or Vomiting Other/Special Instructions: As discussed, use Reglan for times of increase nausea and abdominal pain. Use for a few days, consider medication vacation then restarting if symptoms persist. - Discharge Plan *PRESCRIPTION DRUG MONITORING PROGRAM REVIEWED*: No *COPY OF PRESCRIPTION DRUG MONITORING REPORT IN PATIENT IVELISSE: No Prescriptions/Med Rec: Metoclopramide [Reglan] 10 mg PO BIDAC PRN #30 tablet PRN Reason: abdominal pain, nausea Metoclopramide HCl [Reglan] 10 mg PO TID PRN #20 tablet PRN Reason: Vomiting Home Medications: Home Meds Doxazosin [Cardura] 4 mg PO BEDTIME 09/25/17 [History] Enalapril [Vasotec] 40 mg PO BEDTIME 09/25/17 [History] Torsemide 20 mg PO DAILY 09/25/17 [History] amLODIPine Besylate [Amlodipine Besylate] 10 mg PO BEDTIME 09/25/17 [History] Ferrous Sulfate 324 mg PO DAILY 01/20/18 [History] hydrALAZINE [Apresoline] 25 mg PO TID 30 Days #90 tablet 01/29/18 [Rx] Insulin Glarg,Human.Rec.Analog [Lantus Solostar] 35 units SUBCUT BEDTIME [History] Insulin Aspart [NovoLOG] 0 unit SUBCUT ASDIRECTED PRN 05/23/18 [History] Spironolactone [Aldactone] 25 mg PO DAILY 12/14/18 [History] hydroCHLOROthiazide [Hydrochlorothiazide] 25 mg PO DAILY 12/14/18 [History] Aspirin [Halfprin] 81 mg PO DAILY #30 tab.ec 12/15/18 [Rx] Sucralfate [Carafate] 1 gm PO QIDACANDBED #120 ml 04/05/19 [Rx] Metoclopramide HCl [Reglan] 10 mg PO TID PRN #20 tablet 06/17/19 [Rx] Metoprolol Succinate 2 tab PO DAILY 06/17/19 [History] Pantoprazole Sodium [Protonix] 40 mg PO DAILY 06/17/19 [History] atorvaSTATin [Lipitor] 80 mg PO BEDTIME 06/17/19 [History] Metoclopramide [Reglan] 10 mg PO BIDAC PRN #30 tablet 06/21/19 [Rx] Oxygen Therapy Mode: Room Air Patient Handouts: Metoclopramide tablets, Gastroparesis Referrals: [facility] [Outside] Fitz Infante MD [Physician] - 07/12/19 9:00 am - Discharge Summary/Plan Comment DC Time >30 min.: No Discharge Summary/Plan Comment: Admitting Diagnoses: Abdominal pain N/V intractable Gastroparesis Discharge Diagnoses: Gastroparesis Other PMH HTN Type 1 DM, uncontrolled CKD Hx CVA Hx BKA to R leg Waqas was admitted with his typical symptoms of abdominal pain with nausea and vomiting. He reports he did not see any blood in emesis and no dark color. He reports he tries to come in early to he doesn't start to notice bleeding. He reports PCP wanted him to stop Reglan due to side effects. We did discuss this as tardive dyskinesia is a side effect of interlocker use of Reglan. Though some use will be necessary for him and most of all his referral to a GI specialist is recommended. He reports he has a [facility] referral, but continues to need verification from Dr Infante for this to go through, even though appointment is scheduled for June 27. He was admitted and treated antiemetics and pain medications. Reglan was started on day 2 of admission, which improved pain and nausea. Today he is feeling much better. No further nausea, has low appetite, but is eager to go home. No other concerns. We discussed restarting Reglan taking with two largest meals of the day for the next few days, then giving himself a medication vacation, if symptoms recur start Reglan again. Highly recommended GI referral as they will be able to help with medication regimen and other options for gastroparesis. He is to continue all home medications as previously prescribed. He is to return to ED or clinic if concerns should arise. - General Info Date of Service: 06/21/19 Admission Dx/Problem (Free Text: Gastroparesis Subjective Update: Feeling improved today. No further nausea, appetite not big. Denies chest pain or shortness of breath. Asking for discharge home. Functional Status: Reports: Pain Controlled, Tolerating Diet, Ambulating, Urinating - Patient Data Vitals - Most Recent: Last Vital Signs Temp 97.7 F 06/21/19 07:36 Pulse 104 H 06/21/19 08:43 Resp 16 06/21/19 07:36 BP 169/108 H 06/21/19 08:43 Pulse Ox 96 06/21/19 07:36 Weight - Most Recent: 77.337 kg I&O - Last 24 hours: Intake & Output 06/20/19 06/21/19 06/21/19 22:59 06:59 14:59 Intake Total 1772 1237 Output Total 650 Balance 1772 587 Lab Results - Last 24 hrs: Laboratory Results - last 24 hr 06/20/19 06/20/19 06/20/19 Range/Units 08:31 11:45 12:33 WBC (4.0-11.0) K/uL RBC (4.50-5.90) M/uL Hgb (13.0-17.0) g/dL Hct (38.0-50.0) % MCV (80.0-98.0) fL MCH (27.0-32.0) pg MCHC (31.0-37.0) g/dL RDW Std Deviation (28.0-62.0) fl RDW Coeff of Dania (11.0-15.0) % Plt Count (150-400) K/uL MPV (7.40-12.00) fL Neut % (Auto) (48.0-80.0) % Lymph % (Auto) (16.0-40.0) % Wharton % (Auto) (0.0-15.0) % Eos % (Auto) (0.0-7.0) % Baso % (Auto) (0.0-1.5) % Neut # (Auto) (1.4-5.7) K/uL Lymph # (Auto) (0.6-2.4) K/uL Wharton # (Auto) (0.0-0.8) K/uL Eos # (Auto) (0.0-0.7) K/uL Baso # (Auto) (0.0-0.1) K/uL Nucleated RBC % /100WBC Nucleated RBCs # K/uL Sodium 146 (136-148) mmol/L Potassium 3.3 L (3.5-5.1) mmol/L Chloride 109 H (98-107) mmol/L Carbon Dioxide 27.7 (21.0-32.0) mmol/L BUN 24 H (7.0-18.0) mg/dL Creatinine 2.4 H (0.8-1.3) mg/dL Est Cr Clr Drug Dosing 43.78 mL/min Estimated GFR (MDRD) 38.0 ml/min Glucose 55 L (74-106) mg/dL POC Glucose 60 68 (60-110) mg/dL Calcium 8.2 L (8.5-10.1) mg/dL Phosphorus 4.1 (2.6-4.7) mg/dL Magnesium 2.0 (1.8-2.4) mg/dL Total Bilirubin 0.2 (0.2-1.0) mg/dL AST 46 H (15-37) IU/L ALT 35 (14-63) IU/L Alkaline Phosphatase 102 (46-116) U/L Total Protein 6.6 (6.4-8.2) g/dL Albumin 2.5 L (3.4-5.0) g/dL Globulin 4.1 H (2.6-4.0) g/dL Albumin/Globulin Ratio 0.6 L (0.9-1.6) 06/20/19 06/20/19 06/20/19 Range/Units 12:52 14:37 17:41 WBC (4.0-11.0) K/uL RBC (4.50-5.90) M/uL Hgb (13.0-17.0) g/dL Hct (38.0-50.0) % MCV (80.0-98.0) fL MCH (27.0-32.0) pg MCHC (31.0-37.0) g/dL RDW Std Deviation (28.0-62.0) fl RDW Coeff of Dania (11.0-15.0) % Plt Count (150-400) K/uL MPV (7.40-12.00) fL Neut % (Auto) (48.0-80.0) % Lymph % (Auto) (16.0-40.0) % Wharton % (Auto) (0.0-15.0) % Eos % (Auto) (0.0-7.0) % Baso % (Auto) (0.0-1.5) % Neut # (Auto) (1.4-5.7) K/uL Lymph # (Auto) (0.6-2.4) K/uL Wharton # (Auto) (0.0-0.8) K/uL Eos # (Auto) (0.0-0.7) K/uL Baso # (Auto) (0.0-0.1) K/uL Nucleated RBC % /100WBC Nucleated RBCs # K/uL Sodium (136-148) mmol/L Potassium (3.5-5.1) mmol/L Chloride (98-107) mmol/L Carbon Dioxide (21.0-32.0) mmol/L BUN (7.0-18.0) mg/dL Creatinine (0.8-1.3) mg/dL Est Cr Clr Drug Dosing mL/min Estimated GFR (MDRD) ml/min Glucose (74-106) mg/dL POC Glucose 80 80 58 L (60-110) mg/dL Calcium (8.5-10.1) mg/dL Phosphorus (2.6-4.7) mg/dL Magnesium (1.8-2.4) mg/dL Total Bilirubin (0.2-1.0) mg/dL AST (15-37) IU/L ALT (14-63) IU/L Alkaline Phosphatase (46-116) U/L Total Protein (6.4-8.2) g/dL Albumin (3.4-5.0) g/dL Globulin (2.6-4.0) g/dL Albumin/Globulin Ratio (0.9-1.6) 06/20/19 06/20/1906/20/19 Range/Units 18:50 20:35 23:30 WBC (4.0-11.0) K/uL RBC (4.50-5.90) M/uL Hgb (13.0-17.0) g/dL Hct (38.0-50.0) % MCV (80.0-98.0) fL MCH (27.0-32.0) pg MCHC (31.0-37.0) g/dL RDW Std Deviation (28.0-62.0) fl RDW Coeff of Dania (11.0-15.0) % Plt Count (150-400) K/uL MPV (7.40-12.00) fL Neut % (Auto) (48.0-80.0) % Lymph % (Auto) (16.0-40.0) % Wharton % (Auto) (0.0-15.0) % Eos % (Auto) (0.0-7.0) % Baso % (Auto) (0.0-1.5) % Neut # (Auto) (1.4-5.7) K/uL Lymph # (Auto) (0.6-2.4) K/uL Wharton # (Auto) (0.0-0.8) K/uL Eos # (Auto) (0.0-0.7) K/uL Baso # (Auto) (0.0-0.1) K/uL Nucleated RBC % /100WBC Nucleated RBCs # K/uL Sodium (136-148) mmol/L Potassium (3.5-5.1) mmol/L Chloride (98-107) mmol/L Carbon Dioxide (21.0-32.0) mmol/L BUN (7.0-18.0) mg/dL Creatinine (0.8-1.3) mg/dL Est Cr Clr Drug Dosing mL/min Estimated GFR (MDRD) ml/min Glucose (74-106) mg/dL POC Glucose 83 80 27 L (60-110) mg/dL Calcium (8.5-10.1) mg/dL Phosphorus (2.6-4.7) mg/dL Magnesium (1.8-2.4) mg/dL Total Bilirubin (0.2-1.0) mg/dL AST (15-37) IU/L ALT (14-63) IU/L Alkaline Phosphatase (46-116) U/L Total Protein (6.4-8.2) g/dL Albumin (3.4-5.0) g/dL Globulin (2.6-4.0) g/dL Albumin/Globulin Ratio (0.9-1.6) 06/20/19 06/21/19 06/21/19 Range/Units 23:50 00:09 03:20 WBC (4.0-11.0) K/uL RBC (4.50-5.90) M/uL Hgb (13.0-17.0) g/dL Hct (38.0-50.0) % MCV (80.0-98.0) fL MCH (27.0-32.0) pg MCHC (31.0-37.0) g/dL RDW Std Deviation (28.0-62.0) fl RDW Coeff of Dania (11.0-15.0) % Plt Count (150-400) K/uL MPV (7.40-12.00) fL Neut % (Auto) (48.0-80.0) % Lymph % (Auto) (16.0-40.0) % Wharton % (Auto) (0.0-15.0) % Eos % (Auto) (0.0-7.0) % Baso % (Auto) (0.0-1.5) % Neut # (Auto) (1.4-5.7) K/uL Lymph # (Auto) (0.6-2.4) K/uL Wharton # (Auto) (0.0-0.8) K/uL Eos # (Auto) (0.0-0.7) K/uL Baso # (Auto) (0.0-0.1) K/uL Nucleated RBC % /100WBC Nucleated RBCs # K/uL Sodium (136-148) mmol/L Potassium (3.5-5.1) mmol/L Chloride (98-107) mmol/L Carbon Dioxide (21.0-32.0) mmol/L BUN (7.0-18.0) mg/dL Creatinine (0.8-1.3) mg/dL Est Cr Clr Drug Dosing mL/min Estimated GFR (MDRD) ml/min Glucose (74-106) mg/dL POC Glucose 37 L 254 H 205 H (60-110) mg/dL Calcium (8.5-10.1) mg/dL Phosphorus (2.6-4.7) mg/dL Magnesium (1.8-2.4) mg/dL Total Bilirubin (0.2-1.0) mg/dL AST (15-37) IU/L ALT (14-63) IU/L Alkaline Phosphatase (46-116) U/L Total Protein (6.4-8.2) g/dL Albumin (3.4-5.0) g/dL Globulin (2.6-4.0) g/dL Albumin/Globulin Ratio (0.9-1.6) 06/21/19 06/21/19 06/21/19 Range/Units 06:04 06:04 06:28 WBC 7.81 (4.0-11.0) K/uL RBC 4.43 L (4.50-5.90) M/uL Hgb 9.6 L (13.0-17.0) g/dL Hct 31.1 L (38.0-50.0) % MCV 70.2 L (80.0-98.0) fL MCH 21.7 L (27.0-32.0) pg MCHC 30.9 L (31.0-37.0) g/dL RDW Std Deviation 42.2 (28.0-62.0) fl RDW Coeff of Dania 17 H (11.0-15.0) % Plt Count 279 (150-400) K/uL MPV 9.70 (7.40-12.00) fL Neut % (Auto) 50.1 (48.0-80.0) % Lymph % (Auto) 40.5 H (16.0-40.0) % Wharton % (Auto) 6.3 (0.0-15.0) % Eos % (Auto) 2.7 (0.0-7.0) % Baso % (Auto) 0.4 (0.0-1.5) % Neut # (Auto) 3.9 (1.4-5.7) K/uL Lymph # (Auto) 3.2 H (0.6-2.4) K/uL Wharton # (Auto) 0.5 (0.0-0.8) K/uL Eos # (Auto) 0.2 (0.0-0.7) K/uL Baso # (Auto) 0.0 (0.0-0.1) K/uL Nucleated RBC % 0.0 /100WBC Nucleated RBCs # 0 K/uL Sodium 144 (136-148) mmol/L Potassium 3.8 (3.5-5.1) mmol/L Chloride 111 H (98-107) mmol/L Carbon Dioxide 25.4 (21.0-32.0) mmol/L BUN 17 (7.0-18.0) mg/dL Creatinine 2.0 H (0.8-1.3) mg/dL Est Cr Clr Drug Dosing 52.53 mL/min Estimated GFR (MDRD) 46.9 ml/min Glucose 68 L (74-106) mg/dL POC Glucose 40 L (60-110) mg/dL Calcium 7.4 L (8.5-10.1) mg/dL Phosphorus (2.6-4.7) mg/dL Magnesium (1.8-2.4) mg/dL Total Bilirubin (0.2-1.0) mg/dL AST (15-37) IU/L ALT (14-63) IU/L Alkaline Phosphatase (46-116) U/L Total Protein (6.4-8.2) g/dL Albumin (3.4-5.0) g/dL Globulin (2.6-4.0) g/dL Albumin/Globulin Ratio (0.9-1.6) 06/21/19 06/21/19 06/21/19 Range/Units 06:57 07:33 08:39 WBC (4.0-11.0) K/uL RBC (4.50-5.90) M/uL Hgb (13.0-17.0) g/dL Hct (38.0-50.0) % MCV (80.0-98.0) fL MCH (27.0-32.0) pg MCHC (31.0-37.0) g/dL RDW Std Deviation (28.0-62.0) fl RDW Coeff of Dania (11.0-15.0) % Plt Count (150-400) K/uL MPV (7.40-12.00) fL Neut % (Auto) (48.0-80.0) % Lymph % (Auto) (16.0-40.0) % Wharton % (Auto) (0.0-15.0) % Eos % (Auto) (0.0-7.0) % Baso % (Auto) (0.0-1.5) % Neut # (Auto) (1.4-5.7) K/uL Lymph # (Auto) (0.6-2.4) K/uL Wharton # (Auto) (0.0-0.8) K/uL Eos # (Auto) (0.0-0.7) K/uL Baso # (Auto) (0.0-0.1) K/uL Nucleated RBC % /100WBC Nucleated RBCs # K/uL Sodium (136-148) mmol/L Potassium (3.5-5.1) mmol/L Chloride (98-107) mmol/L Carbon Dioxide (21.0-32.0) mmol/L BUN (7.0-18.0) mg/dL Creatinine (0.8-1.3) mg/dL Est Cr Clr Drug Dosing mL/min Estimated GFR (MDRD) ml/min Glucose (74-106) mg/dL POC Glucose 34 L 285 H 165 H (60-110) mg/dL Calcium (8.5-10.1) mg/dL Phosphorus (2.6-4.7) mg/dL Magnesium (1.8-2.4) mg/dL Total Bilirubin (0.2-1.0) mg/dL AST (15-37) IU/L ALT (14-63) IU/L Alkaline Phosphatase (46-116) U/L Total Protein (6.4-8.2) g/dL Albumin (3.4-5.0) g/dL Globulin (2.6-4.0) g/dL Albumin/Globulin Ratio (0.9-1.6) Med Orders - Current: Current Medications Acetaminophen (Tylenol) 650 mg PO Q6H PRN PRN Reason: Pain Last Admin: 06/17/19 22:16 Dose: 650 mg Amlodipine Besylate (Norvasc) 10 mg PO BEDTIME MICHAEL Last Admin: 06/20/19 21:07 Dose: 10 mg Atorvastatin Calcium (Lipitor) 80 mg PO BEDTIME [facility] Last Admin: 06/20/19 21:06 Dose: 80 mg Doxazosin Mesylate (Cardura) 2 mg PO BEDTIME MICHAEL Last Admin: 06/20/19 21:08 Dose: 2 mg Enalapril Maleate (Vasotec) 40 mg PO BEDTIME [facility] Last Admin: 06/20/19 21:04 Dose: 40 mg Hydralazine HCl (Apresoline) 25 mg PO TID [facility] Last Admin: 06/21/19 06:26 Dose: 25 mg Hydralazine HCl (Apresoline) 25 mg IVPUSH Q8H PRN PRN Reason: Hypertension Last Admin: 06/19/19 11:58 Dose: 25 mg Hydromorphone HCl (Dilaudid) 0.5 mg IVPUSH Q2H PRN PRN Reason: Pain (severe 7-10) Pantoprazole Sodium 40 mg/ (Sodium Chloride) 10 mls @ 300 mls/hr IV Q12H [facility] Last Admin: 06/21/19 08:43 Dose: 300 mls/hr Sodium Chloride (Normal Saline) 1,000 mls @ 75 mls/hr IV ASDIRECTED [facility] Last Admin: 06/20/19 21:09 Dose: 75 mls/hr Insulin Aspart (Novolog) 0 unit SUBCUT TIDAC [facility]; Protocol Last Admin: 06/21/19 06:52 Dose: Not Given Insulin Glargine (Lantus Solostar) 22 units SUBCUT BEDTIME [facility] Last Admin: 06/20/19 21:10 Dose: 22 units Lorazepam (Ativan) 0.5 mg IVPUSH Q6H PRN PRN Reason: Nausea/Vomiting Last Admin: 06/20/19 04:28 Dose: 0.5 mg Metoclopramide HCl (Reglan) 10 mg IVPUSH Q8H [facility] Last Admin: 06/21/19 08:44 Dose: 10 mg Metoprolol Succinate (Toprol Xl) 200 mg PO DAILY [facility] Last Admin: 06/21/19 08:43 Dose: 100 mg Ondansetron HCl (Zofran) 4 mg IVPUSH Q4H PRN PRN Reason: Nausea Last Admin: 06/19/19 20:17 Dose: 4 mg Promethazine HCl (Phenergan) 25 mg IM Q6H PRN PRN Reason: Nausea Last Admin: 06/20/19 08:33 Dose: 25 mg Sodium Chloride (Saline Flush) 10 ml FLUSH ASDIRECTED PRN PRN Reason: Keep Vein Open Sodium Chloride (Saline Flush) 2.5 ml FLUSH ASDIRECTED PRN PRN Reason: Keep Vein Open Spironolactone (Aldactone) 25 mg PO DAILY [facility] Last Admin: 06/21/19 08:43 Dose: 25 mg Sucralfate (Carafate) 1 gm PO QIDACANDBED [facility] Last Admin: 06/21/19 06:52 Dose: Not Given Tramadol HCl (Ultram) 50 mg PO Q6H PRN PRN Reason: Pain Last Admin: 06/20/19 04:57 Dose: 50 mg Discontinued Medications Clonidine HCl (Catapres) 0.1 mg PO ONETIME ONE Stop: 06/18/19 17:01 Last Admin: 06/18/19 17:14 Dose: 0.1 mg Al Hydroxide/Mg Hydroxide 15 (ml/ Lidocaine HCl 5 ml) 0 ml PO ONETIME ONE Stop: 06/17/19 15:39 Last Admin: 06/17/19 16:07 Dose: 1 each Dextrose/Water (Dextrose 50% In Water) 50 ml IVPUSH ONETIME ONE Stop: 06/17/19 21:57 Last Admin: 06/17/19 22:16 Dose: 50 ml Dextrose/Water (Dextrose 50% In Water) 25 ml IVPUSH ONETIME ONE Stop: 06/20/19 12:38 Last Admin: 06/20/19 12:57 Dose: Not Given Dextrose/Water (Dextrose 50% In Water) 50 ml IVPUSH ONETIME ONE Stop: 06/20/19 23:55 Last Admin: 06/21/19 00:03 Dose: 50 ml Dextrose/Water (Dextrose 50% In Water) 50 ml IVPUSH ONETIME ONE Stop: 06/21/19 07:04 Last Admin: 06/21/19 07:27 Dose: 50 ml Hydralazine HCl (Apresoline) 10 mg IVPUSH ONETIME ONE Stop: 06/18/19 18:17 Last Admin: 06/18/19 18:42 Dose: 10 mg Hydrochlorothiazide (Hydrochlorothiazide) 25 mg PO DAILY [facility] Hydromorphone HCl (Dilaudid) 1 mg IVPUSH Q4H PRN PRN Reason: Pain (severe 7-10) Last Admin: 06/20/19 05:35 Dose: 1 mg Sodium Chloride (Normal Saline) 1,000 mls @ 999 mls/hr IV .Bolus ONE Stop: 06/17/19 14:04 Last Admin: 06/17/19 13:21 Dose: 999 mls/hr Sodium Chloride (Normal Saline) Confirm Administered Dose 20 mls @ as directed .ROUTE .STK-MED ONE Stop: 06/17/19 13:12 Last Admin: 06/17/19 13:39 Dose: 20 mls/hr Sodium Chloride (Normal Saline) 1,000 mls @ 999 mls/hr IV .Bolus ONE Stop: 06/17/19 15:36 Last Admin: 06/17/19 14:57 Dose: 999 mls/hr Sodium Chloride (Normal Saline) 1,000 mls @ 125 mls/hr IV ASDIRECTED [facility] Last Admin: 06/18/19 08:21 Dose: 125 mls/hr Sodium Chloride (Normal Saline) 1,000 mls @ 125 mls/hr IV ASDIRECTED [facility] Last Admin: 06/19/19 21:00 Dose: 125 mls/hr Insulin Glargine (Lantus Solostar) 35 units SUBCUT BEDTIME [facility] Last Admin: 06/19/19 21:41 Dose: 35 units Insulin Human Regular (Novolin R) 10 unit SUBCUT ONETIME ONE; Protocol Stop: 06/17/19 15:05 Last Admin: 06/17/19 15:17 Dose: 10 unit Insulin Human Regular (Novolin R) 15 unit SUBCUT ONETIME ONE; Protocol Stop: 06/17/19 16:11 Last Admin: 06/17/19 16:16 Dose: 15 unit Lorazepam (Ativan) 1 mg IVPUSH ONETIME ONE Stop: 06/17/19 13:06 Last Admin: 06/17/19 13:19 Dose: 1 mg Lorazepam (Ativan) 1 mg IVPUSH ONETIME ONE Stop: 06/17/19 16:45 Last Admin: 06/17/19 17:02 Dose: 1 mg Lorazepam (Ativan) 1 mg PO ONETIME ONE Stop: 06/18/19 14:09 Last Admin: 06/18/19 19:31 Dose: Not Given Lorazepam (Ativan) 1 mg IVPUSH ONETIME ONE Stop: 06/18/19 15:01 Last Admin: 06/18/19 15:11 Dose: 1 mg Metoclopramide HCl (Reglan) 10 mg IV ONETIME ONE Stop: 06/17/19 14:28 Last Admin: 06/17/19 14:58 Dose: 10 mg Metoclopramide HCl (Reglan) 10 mg IV ONETIME ONE Stop: 06/17/19 15:39 Last Admin: 06/17/19 15:47 Dose: 10 mg Morphine Sulfate (Morphine) 2 mg IVPUSH Q3HR PRN PRN Reason: Pain Last Admin: 06/17/19 23:23 Dose: 2 mg Morphine Sulfate (Morphine) 2 mg IVPUSH Q4H PRN PRN Reason: Pain Last Admin: 06/19/19 00:57 Dose: 2 mg Ondansetron HCl (Zofran) 4 mg IVPUSH ONETIME ONE Stop: 06/17/19 13:05 Last Admin: 06/17/19 13:25 Dose: 4 mg Pantoprazole Sodium (Protonix Iv) 80 mg IVPUSH .BOLUS ONE Stop: 06/17/19 13:05 Last Admin: 06/17/19 13:25 Dose: 80 mg Potassium Chloride (Klor-Con M20) 40 meq PO ONETIME ONE Stop: 06/20/19 19:51 Last Admin: 06/20/19 21:07 Dose: 40 meq <Santana Gilbert - Last Filed: 06/21/19 11:48> Discharge Summary - Hospital Course HPI Initial Comments: I have seen and examined the patient independently of Chanell Jimenez CNP. I have discussed the case with her. I have reviewed and agree with the assessment and plan as outlined very her for this patient. Please see orders. - Referral to Home Health Primary Care Physician: PCP None - Discharge Diagnosis/Problem(s) (1) Abdominal pain SNOMED Code(s): 57129548 ICD Code: R10.9 - UNSPECIFIED ABDOMINAL PAIN Status: Chronic Priority: High Qualifiers: Abdominal location: upper abdomen, unspecified Qualified Code(s): R10.10 - Upper abdominal pain, unspecified (2) Gastroparesis SNOMED Code(s): 354796291 ICD Code: K31.84 - GASTROPARESIS Status: Acute Priority: High (3) Gastroparesis diabeticorum SNOMED Code(s): 529475939 ICD Code: E11.43 - TYPE 2 DIABETES W DIABETIC AUTONOMIC (POLY)NEUROPATHY; K31.84 - GASTROPARESIS Status: Acute Priority: High (4) Diabetes mellitus type I SNOMED Code(s): 48270807 ICD Code: E10.9 - TYPE 1 DIABETES MELLITUS WITHOUT COMPLICATIONS Status: Chronic Qualifiers: Diabetes mellitus complication status: with kidney complications Diabetes mellitus complication detail: with chronic kidney disease Chronic kidney disease stage: stage 3 (moderate) Qualified Code(s): E10.22 - Type 1 diabetes mellitus with diabetic chronic kidney disease; N18.3 - Chronic kidney disease, stage 3 (moderate) (5) S/P BKA (below knee amputation) unilateral SNOMED Code(s): 865471497, 61675032, 897003809 ICD Code: Z89.519 - ACQUIRED ABSENCE OF UNSPECIFIED LEG BELOW KNEE Status: Chronic Priority: Medium - Patient Data Vitals - Most Recent: Last Vital Signs Temp 36.5 C 06/21/19 07:36 Pulse 104 H 06/21/19 08:43 Resp 16 06/21/19 07:36 BP 169/108 H 06/21/19 08:43 Pulse Ox 96 06/21/19 07:36 I&O - Last 24 hours: Intake & Output 06/20/19 06/21/19 06/21/19 22:59 06:59 14:59 Intake Total 1772 1237 1247 Output Total 650 400 Balance 1772 587 847 Lab Results - Last 24 hrs: Laboratory Results - last 24 hr 06/20/19 06/20/19 06/20/19 Range/Units 11:45 12:33 12:52 WBC (4.0-11.0) K/uL RBC (4.50-5.90) M/uL Hgb (13.0-17.0) g/dL Hct (38.0-50.0) % MCV (80.0-98.0) fL MCH (27.0-32.0) pg MCHC (31.0-37.0) g/dL RDW Std Deviation (28.0-62.0) fl RDW Coeff of Dania (11.0-15.0) % Plt Count (150-400) K/uL MPV (7.40-12.00) fL Neut % (Auto) (48.0-80.0) % Lymph % (Auto) (16.0-40.0) % Wharton % (Auto) (0.0-15.0) % Eos % (Auto) (0.0-7.0) % Baso % (Auto) (0.0-1.5) % Neut # (Auto) (1.4-5.7) K/uL Lymph # (Auto) (0.6-2.4) K/uL Wharton # (Auto) (0.0-0.8) K/uL Eos # (Auto) (0.0-0.7) K/uL Baso # (Auto) (0.0-0.1) K/uL Nucleated RBC % /100WBC Nucleated RBCs # K/uL Sodium (136-148) mmol/L Potassium (3.5-5.1) mmol/L Chloride (98-107) mmol/L Carbon Dioxide (21.0-32.0) mmol/L BUN (7.0-18.0) mg/dL Creatinine (0.8-1.3) mg/dL Est Cr Clr Drug Dosing mL/min Estimated GFR (MDRD) ml/min Glucose (74-106) mg/dL POC Glucose 60 68 80 (60-110) mg/dL Calcium (8.5-10.1) mg/dL 06/20/19 06/20/19 06/20/19 Range/Units 14:37 17:41 18:50 WBC (4.0-11.0) K/uL RBC (4.50-5.90) M/uL Hgb (13.0-17.0) g/dL Hct (38.0-50.0) % MCV (80.0-98.0) fL MCH (27.0-32.0) pg MCHC (31.0-37.0) g/dL RDW Std Deviation (28.0-62.0) fl RDW Coeff of Dania (11.0-15.0) % Plt Count (150-400) K/uL MPV (7.40-12.00) fL Neut % (Auto) (48.0-80.0) % Lymph % (Auto) (16.0-40.0) % Wharton % (Auto) (0.0-15.0) % Eos % (Auto) (0.0-7.0) % Baso % (Auto) (0.0-1.5) % Neut # (Auto) (1.4-5.7) K/uL Lymph # (Auto) (0.6-2.4) K/uL Wharton # (Auto) (0.0-0.8) K/uL Eos # (Auto) (0.0-0.7) K/uL Baso # (Auto) (0.0-0.1) K/uL Nucleated RBC % /100WBC Nucleated RBCs # K/uL Sodium (136-148) mmol/L Potassium (3.5-5.1) mmol/L Chloride (98-107) mmol/L Carbon Dioxide (21.0-32.0) mmol/L BUN (7.0-18.0) mg/dL Creatinine (0.8-1.3) mg/dL Est Cr Clr Drug Dosing mL/min Estimated GFR (MDRD) ml/min Glucose (74-106) mg/dL POC Glucose 80 58 L 83 (60-110) mg/dL Calcium (8.5-10.1) mg/dL 06/20/19 06/20/19 06/20/19 Range/Units 20:35 23:30 23:50 WBC (4.0-11.0) K/uL RBC (4.50-5.90) M/uL Hgb (13.0-17.0) g/dL Hct (38.0-50.0) % MCV (80.0-98.0) fL MCH (27.0-32.0) pg MCHC (31.0-37.0) g/dL RDW Std Deviation (28.0-62.0) fl RDW Coeff of Dania (11.0-15.0) % Plt Count (150-400) K/uL MPV (7.40-12.00) fL Neut % (Auto) (48.0-80.0) % Lymph % (Auto) (16.0-40.0) % Wharton % (Auto) (0.0-15.0) % Eos % (Auto) (0.0-7.0) % Baso % (Auto) (0.0-1.5) % Neut # (Auto) (1.4-5.7) K/uL Lymph # (Auto) (0.6-2.4) K/uL Wharton # (Auto) (0.0-0.8) K/uL Eos # (Auto) (0.0-0.7) K/uL Baso # (Auto) (0.0-0.1) K/uL Nucleated RBC % /100WBC Nucleated RBCs # K/uL Sodium (136-148) mmol/L Potassium (3.5-5.1) mmol/L Chloride (98-107) mmol/L Carbon Dioxide (21.0-32.0) mmol/L BUN (7.0-18.0) mg/dL Creatinine (0.8-1.3) mg/dL Est Cr Clr Drug Dosing mL/min Estimated GFR (MDRD) ml/min Glucose (74-106) mg/dL POC Glucose 80 27 L 37 L (60-110) mg/dL Calcium (8.5-10.1) mg/dL 06/21/19 06/21/19 06/21/19 Range/Units 00:09 03:20 06:04 WBC 7.81 (4.0-11.0) K/uL RBC 4.43 L (4.50-5.90) M/uL Hgb 9.6 L (13.0-17.0) g/dL Hct 31.1 L (38.0-50.0) % MCV 70.2 L (80.0-98.0) fL MCH 21.7 L (27.0-32.0) pg MCHC 30.9 L (31.0-37.0) g/dL RDW Std Deviation 42.2 (28.0-62.0) fl RDW Coeff of Dnaia 17 H (11.0-15.0) % Plt Count 279 (150-400) K/uL MPV 9.70 (7.40-12.00) fL Neut % (Auto) 50.1 (48.0-80.0) % Lymph % (Auto) 40.5 H (16.0-40.0) % Wharton % (Auto) 6.3 (0.0-15.0) % Eos % (Auto) 2.7 (0.0-7.0) % Baso % (Auto) 0.4 (0.0-1.5) % Neut # (Auto) 3.9 (1.4-5.7) K/uL Lymph # (Auto) 3.2 H (0.6-2.4) K/uL Wharton # (Auto) 0.5 (0.0-0.8) K/uL Eos # (Auto) 0.2 (0.0-0.7) K/uL Baso # (Auto) 0.0 (0.0-0.1) K/uL Nucleated RBC % 0.0 /100WBC Nucleated RBCs # 0 K/uL Sodium (136-148) mmol/L Potassium (3.5-5.1) mmol/L Chloride (98-107) mmol/L Carbon Dioxide (21.0-32.0) mmol/L BUN (7.0-18.0) mg/dL Creatinine (0.8-1.3) mg/dL Est Cr Clr Drug Dosing mL/min Estimated GFR (MDRD) ml/min Glucose (74-106) mg/dL POC Glucose 254 H 205 H (60-110) mg/dL Calcium (8.5-10.1) mg/dL 06/21/19 06/21/19 06/21/19 Range/Units 06:04 06:28 06:57 WBC (4.0-11.0) K/uL RBC (4.50-5.90) M/uL Hgb (13.0-17.0) g/dL Hct (38.0-50.0) % MCV (80.0-98.0) fL MCH (27.0-32.0) pg MCHC (31.0-37.0) g/dL RDW Std Deviation (28.0-62.0) fl RDW Coeff of Dania (11.0-15.0) % Plt Count (150-400) K/uL MPV (7.40-12.00) fL Neut % (Auto) (48.0-80.0) % Lymph % (Auto) (16.0-40.0) % Wharton % (Auto) (0.0-15.0) % Eos % (Auto) (0.0-7.0) % Baso % (Auto) (0.0-1.5) % Neut # (Auto) (1.4-5.7) K/uL Lymph # (Auto) (0.6-2.4) K/uL [place]arton # (Auto) (0.0-0.8) K/uL Eos # (Auto) (0.0-0.7) K/uL Baso # (Auto) (0.0-0.1) K/uL Nucleated RBC % /100WBC Nucleated RBCs # K/uL Sodium 144 (136-148) mmol/L Potassium 3.8 (3.5-5.1) mmol/L Chloride 111 H (98-107) mmol/L Carbon Dioxide 25.4 (21.0-32.0) mmol/L BUN 17 (7.0-18.0) mg/dL Creatinine 2.0 H (0.8-1.3) mg/dL Est Cr Clr Drug Dosing 52.53 mL/min Estimated GFR (MDRD) 46.9 ml/min Glucose 68 L (74-106) mg/dL POC Glucose 40 L 34 L (60-110) mg/dL Calcium 7.4 L (8.5-10.1) mg/dL 06/21/19 06/21/19 Range/Units 07:33 08:39 WBC (4.0-11.0) K/uL RBC (4.50-5.90) M/uL Hgb (13.0-17.0) g/dL Hct (38.0-50.0) % MCV (80.0-98.0) fL MCH (27.0-32.0) pg MCHC (31.0-37.0) g/dL RDW Std Deviation (28.0-62.0) fl RDW Coeff of Dania (11.0-15.0) % Plt Count (150-400) K/uL MPV (7.40-12.00) fL Neut % (Auto) (48.0-80.0) % Lymph % (Auto) (16.0-40.0) % Wharton % (Auto) (0.0-15.0) % Eos % (Auto) (0.0-7.0) % Baso % (Auto) (0.0-1.5) % Neut # (Auto) (1.4-5.7) K/uL Lymph # (Auto) (0.6-2.4) K/uL [place]arton # (Auto) (0.0-0.8) K/uL Eos # (Auto) (0.0-0.7) K/uL Baso # (Auto) (0.0-0.1) K/uL Nucleated RBC % /100WBC Nucleated RBCs # K/uL Sodium (136-148) mmol/L Potassium (3.5-5.1) mmol/L Chloride (98-107) mmol/L Carbon Dioxide (21.0-32.0) mmol/L BUN (7.0-18.0) mg/dL Creatinine (0.8-1.3) mg/dL Est Cr Clr Drug Dosing mL/min Estimated GFR (MDRD) ml/min Glucose (74-106) mg/dL POC Glucose 285 H 165 H (60-110) mg/dL Calcium (8.5-10.1) mg/dL Med Orders - Current: Current Medications Discontinued Medications Acetaminophen (Tylenol) 650 mg PO Q6H PRN PRN Reason: Pain Last Admin: 06/17/19 22:16 Dose: 650 mg Amlodipine Besylate (Norvasc) 10 mg PO BEDTIME [facility] Last Admin: 06/20/19 21:07 Dose: 10 mg Atorvastatin Calcium (Lipitor) 80 mg PO BEDTIME MICHAEL Last Admin: 06/20/19 21:06 Dose: 80 mg Clonidine HCl (Catapres) 0.1 mg PO ONETIME ONE Stop: 06/18/19 17:01 Last Admin: 06/18/19 17:14 Dose: 0.1 mg Al Hydroxide/Mg Hydroxide 15 (ml/ Lidocaine HCl 5 ml) 0 ml PO ONETIME ONE Stop: 06/17/19 15:39 Last Admin: 06/17/19 16:07 Dose: 1 each Dextrose/Water (Dextrose 50% In Water) 50 ml IVPUSH ONETIME ONE Stop: 06/17/19 21:57 Last Admin: 06/17/19 22:16 Dose: 50 ml Dextrose/Water (Dextrose 50% In Water) 25 ml IVPUSH ONETIME ONE Stop: 06/20/19 12:38 Last Admin: 06/20/19 12:57 Dose: Not Given Dextrose/Water (Dextrose 50% In Water) 50 ml IVPUSH ONETIME ONE Stop: 06/20/19 23:55 Last Admin: 06/21/19 00:03 Dose: 50 ml Dextrose/Water (Dextrose 50% In Water) 50 ml IVPUSH ONETIME ONE Stop: 06/21/19 07:04 Last Admin: 06/21/19 07:27 Dose: 50 ml Doxazosin Mesylate (Cardura) 2 mg PO BEDTIME MICHAEL Last Admin: 06/20/19 21:08 Dose: 2 mg Enalapril Maleate (Vasotec) 40 mg PO BEDTIME MICHAEL Last Admin: 06/20/19 21:04 Dose: 40 mg Hydralazine HCl (Apresoline) 25 mg PO TID MICHAEL Last Admin: 06/21/19 06:26 Dose: 25 mg Hydralazine HCl (Apresoline) 10 mg IVPUSH ONETIME ONE Stop: 06/18/19 18:17 Last Admin: 06/18/19 18:42 Dose: 10 mg Hydralazine HCl (Apresoline) 25 mg IVPUSH Q8H PRN PRN Reason: Hypertension Last Admin: 06/19/19 11:58 Dose: 25 mg Hydrochlorothiazide (Hydrochlorothiazide) 25 mg PO DAILY [facility] Hydromorphone HCl (Dilaudid) 1 mg IVPUSH Q4H PRN PRN Reason: Pain (severe 7-10) Last Admin: 06/20/19 05:35 Dose: 1 mg Hydromorphone HCl (Dilaudid) 0.5 mg IVPUSH Q2H PRN PRN Reason: Pain (severe 7-10) Sodium Chloride (Normal Saline) 1,000 mls @ 999 mls/hr IV .Bolus ONE Stop: 06/17/19 14:04 Last Admin: 06/17/19 13:21 Dose: 999 mls/hr Sodium Chloride (Normal Saline) Confirm Administered Dose 20 mls @ as directed .ROUTE .STK-MED ONE Stop: 06/17/19 13:12 Last Admin: 06/17/19 13:39 Dose: 20 mls/hr Sodium Chloride (Normal Saline) 1,000 mls @ 999 mls/hr IV .Bolus ONE Stop: 06/17/19 15:36 Last Admin: 06/17/19 14:57 Dose: 999 mls/hr Sodium Chloride (Normal Saline) 1,000 mls @ 125 mls/hr IV ASDIRECTED [facility] Last Admin: 06/18/19 08:21 Dose: 125 mls/hr Pantoprazole Sodium 40 mg/ (Sodium Chloride) 10 mls @ 300 mls/hr IV Q12H MICHAEL Last Admin: 06/21/19 08:43 Dose: 300 mls/hr Sodium Chloride (Normal Saline) 1,000 mls @ 125 mls/hr IV ASDIRECTED [facility] Last Admin: 06/19/19 21:00 Dose: 125 mls/hr Sodium Chloride (Normal Saline) 1,000 mls @ 75 mls/hr IV ASDIRECTED [facility] Last Admin: 06/20/19 21:09 Dose: 75 mls/hr Insulin Aspart (Novolog) 0 unit SUBCUT TIDAC [facility]; Protocol Last Admin: 06/21/19 06:52 Dose: Not Given Insulin Glargine (Lantus Solostar) 35 units SUBCUT BEDTIME [facility] Last Admin: 06/19/19 21:41 Dose: 35 units Insulin Glargine (Lantus Solostar) 22 units SUBCUT BEDTIME [facility] Last Admin: 06/20/19 21:10 Dose: 22 units Insulin Human Regular (Novolin R) 10 unit SUBCUT ONETIME ONE; Protocol Stop: 06/17/19 15:05 Last Admin: 06/17/19 15:17 Dose: 10 unit Insulin Human Regular (Novolin R) 15 unit SUBCUT ONETIME ONE; Protocol Stop: 06/17/19 16:11 Last Admin: 06/17/19 16:16 Dose: 15 unit Lorazepam (Ativan) 1 mg IVPUSH ONETIME ONE Stop: 06/17/19 13:06 Last Admin: 06/17/19 13:19 Dose: 1 mg Lorazepam (Ativan) 1 mg IVPUSH ONETIME ONE Stop: 06/17/19 16:45 Last Admin: 06/17/19 17:02 Dose: 1 mg Lorazepam (Ativan) 1 mg PO ONETIME ONE Stop: 06/18/19 14:09 Last Admin: 06/18/19 19:31 Dose: Not Given Lorazepam (Ativan) 1 mg IVPUSH ONETIME ONE Stop: 06/18/19 15:01 Last Admin: 06/18/19 15:11 Dose: 1 mg Lorazepam (Ativan) 0.5 mg IVPUSH Q6H PRN PRN Reason: Nausea/Vomiting Last Admin: 06/20/19 04:28 Dose: 0.5 mg Metoclopramide HCl (Reglan) 10 mg IV ONETIME ONE Stop: 06/17/19 14:28 Last Admin: 06/17/19 14:58 Dose: 10 mg Metoclopramide HCl (Reglan) 10 mg IV ONETIME ONE Stop: 06/17/19 15:39 Last Admin: 06/17/19 15:47 Dose: 10 mg Metoclopramide HCl (Reglan) 10 mg IVPUSH Q8H MICHAEL Last Admin: 06/21/19 08:44 Dose: 10 mg Metoprolol Succinate (Toprol Xl) 200 mg PO DAILY MICHAEL Last Admin: 06/21/19 08:43 Dose: 100 mg Morphine Sulfate (Morphine) 2 mg IVPUSH Q3HR PRN PRN Reason: Pain Last Admin: 06/17/19 23:23 Dose: 2 mg Morphine Sulfate (Morphine) 2 mg IVPUSH Q4H PRN PRN Reason: Pain Last Admin: 06/19/19 00:57 Dose: 2 mg Ondansetron HCl (Zofran) 4 mg IVPUSH ONETIME ONE Stop: 06/17/19 13:05 Last Admin: 06/17/19 13:25 Dose: 4 mg Ondansetron HCl (Zofran) 4 mg IVPUSH Q4H PRN PRN Reason: Nausea Last Admin: 06/19/19 20:17 Dose: 4 mg Pantoprazole Sodium (Protonix Iv) 80 mg IVPUSH .BOLUS ONE Stop: 06/17/19 13:05 Last Admin: 06/17/19 13:25 Dose: 80 mg Potassium Chloride (Klor-Con M20) 40 meq PO ONETIME ONE Stop: 06/20/19 19:51 Last Admin: 06/20/19 21:07 Dose: 40 meq Promethazine HCl (Phenergan) 25 mg IM Q6H PRN PRN Reason: Nausea Last Admin: 06/20/19 08:33 Dose: 25 mg Sodium Chloride (Saline Flush) 10 ml FLUSH ASDIRECTED PRN PRN Reason: Keep Vein Open Sodium Chloride (Saline Flush) 2.5 ml FLUSH ASDIRECTED PRN PRN Reason: Keep Vein Open Spironolactone (Aldactone) 25 mg PO DAILY [facility] Last Admin: 06/21/19 08:43 Dose: 25 mg Sucralfate (Carafate) 1 gm PO QIDACANDBED [facility] Last Admin: 06/21/19 06:52 Dose: Not Given Tramadol HCl (Ultram) 50 mg PO Q6H PRN PRN Reason: Pain Last Admin: 06/20/19 04:57 Dose: 50 mg
== END 2019-06-21 10:20 | disposition home or self-care (01) | DRG 74 ==
LOC: MW.ED 13:00 → MW.MS 16:38 → OBSVTOIN 06-19 18:26
PROVIDERS: ADMIT Internal Medicine; ATTEND Internal Medicine
DX: E10.43 Type 1 diabetes mellitus with diabetic autonomic (poly)neuropathy (principal); K31.84 Gastroparesis; N18.3 Chronic kidney disease, stage 3 (moderate); E10.22 Type 1 diabetes mellitus with diabetic chronic kidney disease; R10.10 Upper abdominal pain, unspecified; I10 Essential (primary) hypertension; N28.9 Disorder of kidney and ureter, unspecified; H54.7 Unspecified visual loss; E10.65 Type 1 diabetes mellitus with hyperglycemia; K21.9 Gastro-esophageal reflux disease without esophagitis; I12.9 Hypertensive chronic kidney disease with stage 1 through stage 4 chronic kidney disease, or unspecified chronic kidney disease; E10.42 Type 1 diabetes mellitus with diabetic polyneuropathy; D64.9 Anemia, unspecified; E10.621 Type 1 diabetes mellitus with foot ulcer; Z87.19 Personal history of other diseases of the digestive system; Z89.519 Acquired absence of unspecified leg below knee; Z88.8 Allergy status to other drugs, medicaments and biological substances; Z88.0 Allergy status to penicillin; Z91.013 Allergy to seafood; Z91.018 Allergy to other foods; Z79.899 Other long term (current) drug therapy; Z79.82 Long term (current) use of aspirin; Z79.4 Long term (current) use of insulin
CPT/HCPCS: 36415 ×3; 36600; 80048; 80053 ×2; 82009; 82803; 82962 ×12; 83036; 85025 ×3; 93005; 96361; 96374; 96375; 96376; 99285; A9270 ×17; C9113 ×3; J0360 ×3; J1170 ×4; J1815 ×2; J2060 ×4; J2270 ×5; J2405 ×8; J2550 ×6; J2765 ×2; J7040 ×6; J7050 ×2; J7060; 83735; 84100; 96372; G0378

== ENCOUNTER 2019-06-30 16:02 | Observation (INO) | payer MEDICAID ==
[2019-06-30] MEDS ORDERED: diphenhydrAMINE 50 MG/ML SDV IVPUSH ONE (16:08)
[2019-06-30] MEDS ORDERED: Ondansetron 4 MG/2 ML SDV IVPUSH ONE (16:08)
[2019-06-30] MEDS ORDERED: Sodium Chloride 0.9% 1,000 ML IV ONE (16:08)
[2019-06-30] MEDS ORDERED: Pantoprazole 40 MG Vial IVPUSH ONE (16:08)
[2019-06-30] MEDS ORDERED: HYDROmorphone 1 MG/ML Syringe IVPUSH ONE (16:08)
[2019-06-30] MEDS ORDERED: Metoclopramide 10 MG/2 ML SDV IV ONE (16:09)
[2019-06-30] MEDS ORDERED: hydrALAZINE 20 MG/ML SDV IVPUSH ONE (16:10)
--- NOTE | 2019-06-30 16:14 | EDM.PDOC ---
ED HPI GENERAL MEDICAL PROBLEM - General Stated Complaint: EMS ARRIVAL Time Seen by Provider: 06/30/19 16:03 - History of Present Illness INITIAL COMMENTS - FREE TEXT/NARRATIVE: HISTORY AND PHYSICAL: History of present illness: Patient 34-year-old black male well-known to emergency department with a history of diabetes gastroparesis right BKA medical noncompliance substance abuse who presents with a concern of abdominal pain nausea and vomiting. Review of systems: As per history of present illness and below otherwise all systems reviewed and negative. Past medical history: As per history of present illness and as reviewed below otherwise noncontributory. Surgical history: As per history of present illness and as reviewed below otherwise noncontributory. Social history: No reported history of drug or alcohol abuse. Family history: As per history of present illness and as reviewed below otherwise noncontributory. Physical exam: HEENT: Atraumatic, normocephalic, pupils reactive, negative for scleral icterus , mucous membranes dry, throat clear, neck supple, nontender, trachea midline. Lungs: Clear to auscultation, breath sounds equal bilaterally, chest nontender. Heart: S1S2, regular, negative for clicks, rubs, or JVD. Abdomen: Soft, nondistended, no localized tenderness. Negative for masses or hepatosplenomegaly. Negative for costovertebral tenderness. Pelvis: Stable nontender. Genitourinary: Deferred. Rectal: Deferred. Extremities: Right BKA noted Neuro: Awake, alert, oriented. Cranial nerves II through XII unremarkable. Cerebellum unremarkable. Motor and sensory unremarkable throughout. Exam nonfocal. Diagnostics: CBC CMP PT/INR type and screen acute abdominal series with chest x-ray EKG Therapeutics: Saline 1 L bolus Reglan 10 mg IV Zofran 4 mg IV Dilaudid 1 mg IV Benadryl 50 mg IV Impression: #1 chronic intermittent abdominal pain #2 medical noncompliance #3 history of diabetes with gastroparesis #4 history of substance abuse Definitive disposition and diagnosis as appropriate pending reevaluation and review of above. - Related Data Allergies Allergy/AdvReac Type Severity Reaction Status Date / Time shrimp Allergy Severe Swelling Verified 06/18/19 01:34 iodine Allergy Unknown Anaphylactic Verified 06/18/19 01:34 Shock Penicillins Allergy Unknown Anaphylactic Verified 06/18/19 01:34 Shock shellfish derived Allergy Anaphylactic Verified 06/18/19 01:34 Shock gluten Allergy Unknown Muscle Uncoded 06/18/19 01:34 Aches Home Meds: Home Meds Doxazosin [Cardura] 4 mg PO BEDTIME 09/25/17 [History] Enalapril [Vasotec] 40 mg PO BEDTIME 09/25/17 [History] Torsemide 20 mg PO DAILY 09/25/17 [History] amLODIPine Besylate [Amlodipine Besylate] 10 mg PO BEDTIME 09/25/17 [History] Ferrous Sulfate 324 mg PO DAILY 01/20/18 [History] hydrALAZINE [Apresoline] 25 mg PO TID 30 Days #90 tablet 01/29/18 [Rx] Insulin Glarg,Human.Rec.Analog [Lantus Solostar] 35 units SUBCUT BEDTIME [History] Insulin Aspart [NovoLOG] 0 unit SUBCUT ASDIRECTED PRN 05/23/18 [History] Spironolactone [Aldactone] 25 mg PO DAILY 12/14/18 [History] hydroCHLOROthiazide [Hydrochlorothiazide] 25 mg PO DAILY 12/14/18 [History] Aspirin [Halfprin] 81 mg PO DAILY #30 tab.ec 12/15/18 [Rx] Sucralfate [Carafate] 1 gm PO QIDACANDBED #120 ml 04/05/19 [Rx] Metoclopramide HCl [Reglan] 10 mg PO TID PRN #20 tablet 06/17/19 [Rx] Metoprolol Succinate 2 tab PO DAILY 06/17/19 [History] Pantoprazole Sodium [Protonix] 40 mg PO DAILY 06/17/19 [History] atorvaSTATin [Lipitor] 80 mg PO BEDTIME 06/17/19 [History] Metoclopramide [Reglan] 10 mg PO BIDAC PRN #30 tablet 06/21/19 [Rx] Past Medical History - Past Health History Medical/Surgical History: Denies Medical/Surgical History HEENT History: Reports: Impaired Vision Other HEENT History: blind right eye Cardiovascular History: Reports: Hypertension Respiratory History: Reports: None Gastrointestinal History: Reports: Gastritis, GERD, Hiatal Hernia, Other (See Below) Other Gastrointestinal History: h/o gastric ulcers, h/o hiatal hernia; gastroparesis Genitourinary History: Reports: Chronic Renal Insuffiency, Diabetic Nephropathy Musculoskeletal History: Reports: Amputation Neurological History: Reports: Neuropathy, Peripheral Other Neuro History: stroke 3 months ago Psychiatric History: Reports: Anxiety Endocrine/Metabolic History: Reports: Diabetes, Type I Other Endocrine/Metabolic History: brittle diabetic. 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 - Past Surgical History Head Surgeries/Procedures: Reports: None Social & Family History - Family History Family Medical History: Noncontributory Cardiac: Reports: High Cholesterol, Hypertension OBGYN: Reports: Neurological: Reports: None - Caffeine Use Caffeine Use: Reports: None Other Caffeine Use: daily - Living Situation & Occupation Living situation: Reports: Single Occupation: Employed (Currently unemployed.) ED ROS GENERAL - Review of Systems Review Of Systems: ROS reveals no pertinent complaints other than HPI. ED EXAM, GENERAL - Physical Exam Exam: See Below (See dictation) Course - Vital Signs Last Recorded V/S: Last Vital Signs Temp 36.1 C 06/30/19 16:12 Pulse 101 H 06/30/19 17:39 Resp 14 06/30/19 17:39 BP 154/94 H 06/30/19 17:39 Pulse Ox 100 06/30/19 17:39 - Orders/Labs/Meds Orders: Active Orders 24 hr Category Date Time Status EKG Documentation Completion [RC] STAT Care 06/30/19 16:07 Active Abdomen Series w Chest 1V [CR] Stat Exams 06/30/19 16:08 Ordered UA RFX FRANTZ AND CULT IF INDIC [URIN] Stat Lab 06/30/19 16:08 Ordered Labs: Laboratory Tests 06/30/19 06/30/19 06/30/19 Range/Units 16:20 16:20 16:20 WBC 11.69 H (4.0-11.0) K/uL RBC 5.39 (4.50-5.90) M/uL Hgb 11.8 L (13.0-17.0) g/dL Hct 37.1 L (38.0-50.0) % MCV 68.8 L (80.0-98.0) fL MCH 21.9 L (27.0-32.0) pg MCHC 31.8 (31.0-37.0) g/dL RDW Std Deviation 42.1 (28.0-62.0) fl RDW Coeff of Dania 17 H (11.0-15.0) % Plt Count 420 H (150-400) K/uL MPV 10.10 (7.40-12.00) fL Neut % (Auto) 66.9 (48.0-80.0) % Lymph % (Auto) 23.4 (16.0-40.0) % [place] % (Auto) 7.1 (0.0-15.0) % Eos % (Auto) 2.3 (0.0-7.0) % Baso % (Auto) 0.3 (0.0-1.5) % Neut # (Auto) 7.8 H (1.4-5.7) K/uL Lymph # (Auto) 2.7 H (0.6-2.4) K/uL [place] # (Auto) 0.8 (0.0-0.8) K/uL Eos # (Auto) 0.3 (0.0-0.7) K/uL Baso # (Auto) 0.0 (0.0-0.1) K/uL Nucleated RBC % 0.0 /100WBC Nucleated RBCs # 0 K/uL INR 0.90 ABG pH (7.35-7.45) ABG pCO2 (35-45) mmHG ABG pO2 (75-100) mmHG ABG HCO3 (22-26) mEq/L ABG Total CO2 ABG Base Excess (-2.0-2.0) Sodium 143 (136-148) mmol/L Potassium 3.5 (3.5-5.1) mmol/L Chloride 104 (98-107) mmol/L Carbon Dioxide 23.5 (21.0-32.0) mmol/L BUN 38 H (7.0-18.0) mg/dL Creatinine 2.3 H (0.8-1.3) mg/dL Est Cr Clr Drug Dosing 50.14 mL/min Estimated GFR (MDRD) 39.9 ml/min Glucose 266 H (74-106) mg/dL Calcium 9.7 (8.5-10.1) mg/dL Total Bilirubin 0.1 L (0.2-1.0) mg/dL AST 39 H (15-37) IU/L ALT 50 (14-63) IU/L Alkaline Phosphatase 126 H (46-116) U/L Total Protein 7.8 (6.4-8.2) g/dL Albumin 3.2 L (3.4-5.0) g/dL Globulin 4.6 H (2.6-4.0) g/dL Albumin/Globulin Ratio 0.7 L (0.9-1.6) Lipase 36 L (73-393) U/L Blood Type Antibody Screen 06/30/19 06/30/19 Range/Units 16:20 16:22 WBC (4.0-11.0) K/uL RBC (4.50-5.90) M/uL Hgb (13.0-17.0) g/dL Hct (38.0-50.0) % MCV (80.0-98.0) fL MCH (27.0-32.0) pg MCHC (31.0-37.0) g/dL RDW Std Deviation (28.0-62.0) fl RDW Coeff of Dania (11.0-15.0) % Plt Count (150-400) K/uL MPV (7.40-12.00) fL Neut % (Auto) (48.0-80.0) % Lymph % (Auto) (16.0-40.0) % [place] % (Auto) (0.0-15.0) % Eos % (Auto) (0.0-7.0) % Baso % (Auto) (0.0-1.5) % Neut # (Auto) (1.4-5.7) K/uL Lymph # (Auto) (0.6-2.4) K/uL [place] # (Auto) (0.0-0.8) K/uL Eos # (Auto) (0.0-0.7) K/uL Baso # (Auto) (0.0-0.1) K/uL Nucleated RBC % /100WBC Nucleated RBCs # K/uL INR ABG pH 7.512 H (7.35-7.45) ABG pCO2 32 L (35-45) mmHG ABG pO2 92 (75-100) mmHG ABG HCO3 26 (22-26) mEq/L ABG Total CO2 23.2 ABG Base Excess 2.9 H (-2.0-2.0) Sodium (136-148) mmol/L Potassium (3.5-5.1) mmol/L Chloride (98-107) mmol/L Carbon Dioxide (21.0-32.0) mmol/L BUN (7.0-18.0) mg/dL Creatinine (0.8-1.3) mg/dL Est Cr Clr Drug Dosing mL/min Estimated GFR (MDRD) ml/min Glucose (74-106) mg/dL Calcium (8.5-10.1) mg/dL Total Bilirubin (0.2-1.0) mg/dL AST (15-37) IU/L ALT (14-63) IU/L Alkaline Phosphatase (46-116) U/L Total Protein (6.4-8.2) g/dL Albumin (3.4-5.0) g/dL Globulin (2.6-4.0) g/dL Albumin/Globulin Ratio (0.9-1.6) Lipase (73-393) U/L Blood Type O POSITIVE Antibody Screen NEGATIVE Meds: Medications Discontinued Medications Generic Name Dose Route Start Last Admin Trade Name Freq PRN Reason Stop Dose Admin Diphenhydramine HCl 50 mg 06/30/19 16:08 06/30/19 17:21 Benadryl IVPUSH 06/30/19 16:09 50 mg ONETIME ONE Administration Hydralazine HCl 10 mg 06/30/19 16:10 06/30/19 17:29 Apresoline IVPUSH 06/30/19 16:11 10 mg ONETIME ONE Administration Hydromorphone HCl 1 mg 06/30/19 16:08 06/30/19 17:18 Dilaudid IVPUSH 06/30/19 16:09 1 mg ONETIME ONE Administration Sodium Chloride 1,000 mls @ 999 mls/hr 06/30/19 16:08 06/30/19 17:09 Normal Saline IV 06/30/19 17:08 999 mls/hr STAT ONE Administration Sodium Chloride Confirm 06/30/19 17:01 Normal Saline Administered 06/30/19 17:02 Dose 20 mls @ as directed .ROUTE .STK-MED ONE Metoclopramide HCl 10 mg 06/30/19 16:09 06/30/19 17:13 Reglan IV 06/30/19 16:10 10 mg ONETIME ONE Administration Ondansetron HCl 4 mg 06/30/19 16:08 06/30/19 17:10 Zofran IVPUSH 06/30/19 16:09 4 mg ONETIME ONE Administration Pantoprazole Sodium 80 mg 06/30/19 16:08 06/30/19 17:35 Protonix Iv IVPUSH 06/30/19 16:09 80 mg .BOLUS ONE Administration Departure - Departure Time of Disposition: 17:46 Disposition: Refer to Observation Condition: Good Clinical Impression: Chronic abdominal pain, History of diabetic gastroparesis Nausea and vomiting Qualifiers: Vomiting type: unspecified Vomiting Intractability: non-intractable Qualified Code(s): R11.2 - Nausea with vomiting, unspecified - Discharge Information - My Orders Last 24 Hours: My Active Orders 06/30/19 16:07 EKG Documentation Completion [RC] STAT 06/30/19 16:08 Abdomen Series w Chest 1V [CR] Stat UA RFX FRANTZ AND CULT IF INDIC [URIN] Stat - Assessment/Plan Last 24 Hours: My Active Orders 06/30/19 16:07 EKG Documentation Completion [RC] STAT 06/30/19 16:08 Abdomen Series w Chest 1V [CR] Stat UA RFX FRANTZ AND CULT IF INDIC [URIN] Stat
[2019-06-30 16:57] LABS: CARBON DIOXIDE,CO2 23.5 mmol/L (21.0-32.0); POTASSIUM,K 3.5 mmol/L (3.5-5.1)
[2019-06-30] MEDS ORDERED: Sodium Chloride 0.9% 20 ML ONE (17:01)
--- NOTE | 2019-06-30 18:26 | CR ---
Indication: Abdominal pain Technique: Chest and two-view abdomen, 4 films total. Comparison: Acute abdominal series 04/23/2019 Findings/Impression: Single view of the chest shows no pleural effusion or pneumothorax. The lungs are clear. Heart and mediastinum unremarkable. Views of the abdomen show no dilated loops of large or small intestine. No abnormal calcifications. Osseous structures unremarkable. Dictated by Kj Meyer MD @ Jun 30 2019 6:21PM Signed by Dr. Kj Meyer @ Jun 30 2019 6:24PM
[2019-06-30] MEDS ORDERED: Metoclopramide 10 MG Tab PO PRN (19:05)
[2019-06-30] MEDS ORDERED: Insulin Glargine,Human Rec. Analog 100 Units/ML 3 ML Pen SUBCUT SCH (21:00)
[2019-06-30] MEDS: Insulin Aspart 100 Units/ML 3 ML Pen SUBCUT PRN (21:06)
[2019-06-30] MEDS: atorvaSTATin 40 MG Tab PO SCH (22:01)
[2019-06-30] MEDS: amLODIPine 5 MG Tab PO SCH (22:01)
[2019-06-30] MEDS: Doxazosin 4 MG Tab PO SCH (22:01)
[2019-06-30] MEDS: Sucralfate Suspension 1 GM/10 ML Cup PO SCH (22:01)
--- NOTE | 2019-06-30 22:11 | PCM.HP.2 ---
H&P History of Present Illness - General Date of Service: 06/30/19 Admit Problem/Dx: Admission Diagnosis/Problem Admission Diagnosis/Problem Vomiting - History of Present Illness Initial Comments - Free Text/Narative: 34 yo male with pmh of DM and gastroparesis with multiple admissions for chronic abdominal pain who presents with one day history of nausea, vomiting and abdominal pain. He denies any fevers. Abdomen Pain Score (Numeric/FACES): 7 Epigastric Pain Score (Numeric/FACES): 5 - Related Data Allergies/Adverse Reactions: Allergies Allergy/AdvReac Type Severity Reaction Status Date / Time shrimp Allergy Severe Swelling Verified 06/30/19 20:18 iodine Allergy Unknown Anaphylactic Verified 06/30/19 20:18 Shock Penicillins Allergy Unknown Anaphylactic Verified 06/30/19 20:18 Shock shellfish derived Allergy Anaphylactic Verified 06/30/19 20:18 Shock gluten Allergy Unknown Muscle Uncoded 06/30/19 20:18 Aches Home Medications: Home Meds Doxazosin [Cardura] 4 mg PO BEDTIME 09/25/17 [History] Enalapril [Vasotec] 40 mg PO BEDTIME 09/25/17 [History] Torsemide 20 mg PO DAILY 09/25/17 [History] amLODIPine Besylate [Amlodipine Besylate] 10 mg PO BEDTIME 09/25/17 [History] Ferrous Sulfate 324 mg PO DAILY 01/20/18 [History] hydrALAZINE [Apresoline] 25 mg PO TID 30 Days #90 tablet 01/29/18 [Rx] Insulin Glarg,Human.Rec.Analog [Lantus Solostar] 35 units SUBCUT BEDTIME [History] Insulin Aspart [NovoLOG] 0 unit SUBCUT ASDIRECTED PRN 05/23/18 [History] Spironolactone [Aldactone] 25 mg PO DAILY 12/14/18 [History] hydroCHLOROthiazide [Hydrochlorothiazide] 25 mg PO DAILY 12/14/18 [History] Aspirin [Halfprin] 81 mg PO DAILY #30 tab.ec 12/15/18 [Rx] Sucralfate [Carafate] 1 gm PO QIDACANDBED #120 ml 04/05/19 [Rx] Metoclopramide HCl [Reglan] 10 mg PO TID PRN #20 tablet 06/17/19 [Rx] Metoprolol Succinate 2 tab PO DAILY 06/17/19 [History] Pantoprazole Sodium [Protonix] 40 mg PO DAILY 06/17/19 [History] atorvaSTATin [Lipitor] 80 mg PO BEDTIME 06/17/19 [History] Metoclopramide [Reglan] 10 mg PO BIDAC PRN #30 tablet 06/21/19 [Rx] Past Medical History - Past Health History Medical/Surgical History: Denies Medical/Surgical History HEENT History: Reports: Impaired Vision Other HEENT History: blind right eye Cardiovascular History: Reports: Hypertension Respiratory History: Reports: None Gastrointestinal History: Reports: Gastritis, GERD, Hiatal Hernia, Other (See Below) Other Gastrointestinal History: h/o gastric ulcers, h/o hiatal hernia; gastroparesis Genitourinary History: Reports: Chronic Renal Insuffiency, Diabetic Nephropathy Musculoskeletal History: Reports: Amputation Neurological History: Reports: Neuropathy, Peripheral Other Neuro History: stroke 3 months ago Psychiatric History: Reports: Anxiety Endocrine/Metabolic History: Reports: Diabetes, Type I Other Endocrine/Metabolic History: brittle diabetic. 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 - Past Surgical History Head Surgeries/Procedures: Reports: None Social & Family History - Family History Family Medical History: Noncontributory Cardiac: Reports: High Cholesterol, Hypertension OBGYN: Reports: Neurological: Reports: None - Tobacco Use Smoking Status *Q: Never Smoker - Caffeine Use Caffeine Use: Reports: None Other Caffeine Use: daily - Recreational Drug Use Recreational Drug Use: No - Living Situation & Occupation Living situation: Reports: Single Occupation: Employed (Currently unemployed.) H&P Review of Systems - Review of Systems: Review Of Systems: ROS reveals no pertinent complaints other than HPI. Exam - Exam Exam: See Below - Vital Signs Vital Signs: Last Vital Signs Temp 36.7 C 06/30/19 19:55 Pulse 118 H 06/30/19 19:55 Resp 24 H 06/30/19 19:55 BP 228/209 H 06/30/19 19:55 Pulse Ox 97 10/17/19 19:55 Weight: 76.7 kg - Exam General: Alert, Oriented HEENT: Mucosa Moist & [place] Lungs: Clear to Auscultation, Normal Respiratory Effort Cardiovascular: Regular Rate, Regular Rhythm GI/Abdominal Exam: Normal Bowel Sounds, Soft, Non-Tender, No Distention, No Mass Extremities: Non-Tender, No Pedal Edema, Other (prashant below the knee amputation) Skin: Warm, Dry, Intact - Patient Data Lab Results Last 24 hrs: Laboratory Results - last 24 hr 06/30/19 06/30/19 06/30/19 Range/Units 16:20 16:20 16:20 WBC 11.69 H (4.0-11.0) K/uL RBC 5.39 (4.50-5.90) M/uL Hgb 11.8 L (13.0-17.0) g/dL Hct 37.1 L (38.0-50.0) % MCV 68.8 L (80.0-98.0) fL MCH 21.9 L (27.0-32.0) pg MCHC 31.8 (31.0-37.0) g/dL RDW Std Deviation 42.1 (28.0-62.0) fl RDW Coeff of Dania 17 H (11.0-15.0) % Plt Count 420 H (150-400) K/uL MPV 10.10 (7.40-12.00) fL Neut % (Auto) 66.9 (48.0-80.0) % Lymph % (Auto) 23.4 (16.0-40.0) % [place] % (Auto) 7.1 (0.0-15.0) % Eos % (Auto) 2.3 (0.0-7.0) % Baso % (Auto) 0.3 (0.0-1.5) % Neut # (Auto) 7.8 H (1.4-5.7) K/uL Lymph # (Auto) 2.7 H (0.6-2.4) K/uL [place] # (Auto) 0.8 (0.0-0.8) K/uL Eos # (Auto) 0.3 (0.0-0.7) K/uL Baso # (Auto) 0.0 (0.0-0.1) K/uL Nucleated RBC % 0.0 /100WBC Nucleated RBCs # 0 K/uL INR 0.90 ABG pH (7.35-7.45) ABG pCO2 (35-45) mmHG ABG pO2 (75-100) mmHG ABG HCO3 (22-26) mEq/L ABG Total CO2 ABG Base Excess (-2.0-2.0) Sodium 143 (136-148) mmol/L Potassium 3.5 (3.5-5.1) mmol/L Chloride 104 (98-107) mmol/L Carbon Dioxide 23.5 (21.0-32.0) mmol/L BUN 38 H (7.0-18.0) mg/dL Creatinine 2.3 H (0.8-1.3) mg/dL Est Cr Clr Drug Dosing 50.14 mL/min Estimated GFR (MDRD) 39.9 ml/min Glucose 266 H (74-106) mg/dL POC Glucose (60-110) mg/dL Calcium 9.7 (8.5-10.1) mg/dL Total Bilirubin 0.1 L (0.2-1.0) mg/dL AST 39 H (15-37) IU/L ALT 50 (14-63) IU/L Alkaline Phosphatase 126 H (46-116) U/L Total Protein 7.8 (6.4-8.2) g/dL Albumin 3.2 L (3.4-5.0) g/dL Globulin 4.6 H (2.6-4.0) g/dL Albumin/Globulin Ratio 0.7 L (0.9-1.6) Lipase 36 L (73-393) U/L Blood Type Antibody Screen 06/30/19 06/30/19 06/30/19 Range/Units 16:20 16:22 20:40 WBC (4.0-11.0) K/uL RBC (4.50-5.90) M/uL Hgb (13.0-17.0) g/dL Hct (38.0-50.0) % MCV (80.0-98.0) fL MCH (27.0-32.0) pg MCHC (31.0-37.0) g/dL RDW Std Deviation (28.0-62.0) fl RDW Coeff of Dania (11.0-15.0) % Plt Count (150-400) K/uL MPV (7.40-12.00) fL Neut % (Auto) (48.0-80.0) % Lymph % (Auto) (16.0-40.0) % [place] % (Auto) (0.0-15.0) % Eos % (Auto) (0.0-7.0) % Baso % (Auto) (0.0-1.5) % Neut # (Auto) (1.4-5.7) K/uL Lymph # (Auto) (0.6-2.4) K/uL [place] # (Auto) (0.0-0.8) K/uL Eos # (Auto) (0.0-0.7) K/uL Baso # (Auto) (0.0-0.1) K/uL Nucleated RBC % /100WBC Nucleated RBCs # K/uL INR ABG pH 7.512 H (7.35-7.45) ABG pCO2 32 L (35-45) mmHG ABG pO2 92 (75-100) mmHG ABG HCO3 26 (22-26) mEq/L ABG Total CO2 23.2 ABG Base Excess 2.9 H (-2.0-2.0) Sodium (136-148) mmol/L Potassium (3.5-5.1) mmol/L Chloride (98-107) mmol/L Carbon Dioxide (21.0-32.0) mmol/L BUN (7.0-18.0) mg/dL Creatinine (0.8-1.3) mg/dL Est Cr Clr Drug Dosing mL/min Estimated GFR (MDRD) ml/min Glucose (74-106) mg/dL POC Glucose 340 H (60-110) mg/dL Calcium (8.5-10.1) mg/dL Total Bilirubin (0.2-1.0) mg/dL AST (15-37) IU/L ALT (14-63) IU/L Alkaline Phosphatase (46-116) U/L Total Protein (6.4-8.2) g/dL Albumin (3.4-5.0) g/dL Globulin (2.6-4.0) g/dL Albumin/Globulin Ratio (0.9-1.6) Lipase (73-393) U/L Blood Type O POSITIVE Antibody Screen NEGATIVE Result Diagrams: 07/01/19 06:28 07/01/19 06:28 Problem List Initiated/Reviewed/Updated: Yes Orders Last 24hrs: Active Orders 24 hr Category Date Time Status Patient Status [ADT] Stat ADT 06/30/19 17:50 Active Antiembolic Devices [RC] PER UNIT ROUTINE Care 06/30/19 22:08 Active Blood Glucose Check, Bedside [RC] TIDMEALS Care 06/30/19 22:06 Active EKG Documentation Completion [RC] STAT Care 06/30/19 16:07 Active Oxygen Therapy [RC] PRN Care 06/30/19 22:06 Active Up ad Ruth [RC] ASDIRECTED Care 06/30/19 22:06 Active VTE/DVT Education [RC] PER UNIT ROUTINE Care 06/30/19 22:06 Active Vital Signs [RC] Q4H Care 06/30/19 22:06 Active ADA Diabetic [[place] [employer] Diet] [DIET Diet 07/01/19 Dinner Active ] BASIC METABOLIC PANEL,BMP [CHEM] AM Lab 07/01/19 05:11 Ordered CBC WITH AUTO DIFF [HEME] AM Lab 07/01/19 05:11 Ordered UA RFX FRANTZ AND CULT IF INDIC [URIN] Stat Lab 06/30/19 16:08 Ordered Aspirin [Halfprin] Med 07/01/19 09:00 Active 81 mg PO DAILY Doxazosin [Cardura] Med 06/30/19 21:00 Active 4 mg PO BEDTIME Enalapril [Vasotec] Med 06/30/19 21:00 Active 40 mg PO BEDTIME Ferrous Sulfate Med 07/01/19 09:00 Active 325 mg PO DAILY Insulin Aspart [NovoLOG] Med 06/30/19 19:05 Active See Protocol SUBCUT ASDIRECTED PRN Insulin Glarg,Human.Rec.Analog [LantUS Solostar] Med 06/30/19 21:00 Active 35 units SUBCUT BEDTIME LORazepam [Ativan] Med 06/30/19 22:06 Ordered 1 mg IV Q6H PRN Metoclopramide [Reglan] Med 06/30/19 19:05 Active 10 mg PO TID PRN Metoprolol Succinate [Toprol XL] Med 07/01/19 09:00 Active 200 mg PO DAILY Morphine Med 06/30/19 22:06 Ordered 2 mg IVPUSH Q2H PRN Ondansetron [Zofran] Med 06/30/19 22:06 Ordered 4 mg IVPUSH Q4H PRN Pantoprazole [ProTONIX] Med 07/01/19 09:00 Active 40 mg PO DAILY Sodium Chloride 0.9% [Normal Saline] 1,000 ml Med 06/30/19 22:15 Ordered IV ASDIRECTED Spironolactone [Aldactone] Med 07/01/19 09:00 Active 25 mg PO DAILY Sucralfate [Carafate] Med 06/30/19 21:00 Active 1 gm PO QIDACANDBED amLODIPine [Norvasc] Med 06/30/19 21:00 Active 10 mg PO BEDTIME atorvaSTATin [Lipitor] Med 06/30/19 21:00 Active 80 mg PO BEDTIME hydrALAZINE [Apresoline] Med 06/30/19 22:00 Active 25 mg PO TID hydroCHLOROthiazide Med 07/01/19 09:00 Active 25 mg PO DAILY Sequential Compression Device [OM.PC] Per Unit Routine Oth 06/30/19 22:06 Ordered Resuscitation Status Routine Resus Stat 06/30/19 22:06 Ordered Medication Orders Amlodipine Besylate (Norvasc) 10 mg PO BEDTIME [facility] Last Admin: 06/30/19 22:01 Dose: Not Given Aspirin (Halfprin) 81 mg PO DAILY [facility] Atorvastatin Calcium (Lipitor) 80 mg PO BEDTIME [facility] Last Admin: 06/30/19 22:01 Dose: Not Given Doxazosin Mesylate (Cardura) 4 mg PO BEDTIME [facility] Last Admin: 06/30/19 22:01 Dose: Not Given Enalapril Maleate (Vasotec) 40 mg PO BEDTIME [facility] Last Admin: 06/30/19 22:01 Dose: Not Given Ferrous Sulfate (Ferrous Sulfate) 325 mg PO DAILY [facility] Hydralazine HCl (Apresoline) 25 mg PO TID [facility] Hydrochlorothiazide (Hydrochlorothiazide) 25 mg PO DAILY [facility] Sodium Chloride (Normal Saline) 1,000 mls @ 125 mls/hr IV ASDIRECTED [facility] Insulin Aspart (Novolog) 0 unit SUBCUT ASDIRECTED PRN; Protocol PRN Reason: elevated blood sugar Last Admin: 06/30/19 21:06 Dose: 4 units Insulin Glargine (Lantus Solostar) 35 units SUBCUT BEDTIME [facility] Last Admin: 06/30/19 21:06 Dose: 35 units Lorazepam (Ativan) 1 mg IV Q6H PRN PRN Reason: Nausea/Vomiting Metoclopramide HCl (Reglan) 10 mg PO TID PRN PRN Reason: Vomiting Metoprolol Succinate (Toprol Xl) 200 mg PO DAILY [facility] Morphine Sulfate (Morphine) 2 mg IVPUSH Q2H PRN PRN Reason: Pain (severe 7-10) Stop: 07/01/19 22:07 Ondansetron HCl (Zofran) 4 mg IVPUSH Q4H PRN PRN Reason: Nausea Pantoprazole Sodium (Protonix) 40 mg PO DAILY [facility] Spironolactone (Aldactone) 25 mg PO DAILY [facility] Sucralfate (Carafate) 1 gm PO QIDACANDBED [facility] Last Admin: 06/30/19 22:01 Dose: Not Given Assessment/Plan Comment:: 34 yo male admitted for abdominal pain, nausea and vomiting due to gastroparesis. We will treat with IV fluids, pain control and antiemetics.
[2019-06-30] MEDS: Ondansetron 4 MG/2 ML SDV IVPUSH PRN (22:50)
[2019-06-30] MEDS: LORazepam 2 MG/ML SDV IV PRN (22:50)
[2019-06-30] MEDS: Morphine 2 MG/ML Syringe IVPUSH PRN (22:50)
[2019-06-30] MEDS: hydrALAZINE 25 MG Tab PO SCH (22:52)
[2019-06-30] MEDS: Sodium Chloride 0.9% 1,000 ML IV SCH (23:14)
[2019-07-01] MEDS: Ondansetron 4 MG/2 ML SDV IVPUSH PRN ×2 (02:32→06:26)
[2019-07-01] MEDS: Morphine 2 MG/ML Syringe IVPUSH PRN ×2 (02:32→06:25)
[2019-07-01] MEDS: hydrALAZINE 25 MG Tab PO SCH ×3 (05:11→21:45)
[2019-07-01 06:57] LABS: CARBON DIOXIDE,CO2 27.5 mmol/L (21.0-32.0); POTASSIUM,K 3.9 mmol/L (3.5-5.1)
[2019-07-01] MEDS: Sodium Chloride 0.9% 1,000 ML IV SCH ×2 (07:07→16:12)
[2019-07-01] MEDS: Insulin Aspart 100 Units/ML 3 ML Pen SUBCUT PRN (07:08)
[2019-07-01] MEDS: LORazepam 2 MG/ML SDV IV PRN (07:48)
[2019-07-01] MEDS: Sucralfate Suspension 1 GM/10 ML Cup PO SCH ×4 (07:49→20:16)
[2019-07-01] MEDS ORDERED: Metoclopramide 10 MG Tab PO SCH (08:15)
[2019-07-01] MEDS ORDERED: Metoprolol Tartrate 5 MG/5 ML SDV IVPUSH ONE (08:55)
[2019-07-01] MEDS: Pantoprazole 40 MG Tab.CR PO SCH (09:12)
[2019-07-01] MEDS: Ferrous Sulfate 325 MG Tab PO SCH (09:12)
[2019-07-01] MEDS: Aspirin 81 MG Tab.EC PO SCH (09:12)
[2019-07-01] MEDS: Metoprolol Succinate 100 MG Tab.ER PO SCH (09:12)
[2019-07-01] MEDS: Spironolactone 25 MG Tab PO SCH (09:12)
[2019-07-01] MEDS: Hydrochlorothiazide 25 MG Tab PO SCH (09:12)
[2019-07-01] MEDS ORDERED: Promethazine 25 MG/ML SDV IM PRN (13:16)
--- NOTE | 2019-07-01 15:03 | PCM.PN ---
- General Info Date of Service: 07/01/19 Admission Dx/Problem (Free Text): Admission Diagnosis/Problem Admission Diagnosis/Problem Vomiting Subjective Update: Not feeling well this morning, very nauseated and having abdominal pain. Functional Status: Reports: Ambulating, Urinating. Denies: Pain Controlled, Tolerating Diet - Review of Systems General: Reports: No Symptoms. Denies: Weakness, Fatigue, Malaise HEENT: Reports: No Symptoms. Denies: Sore Throat, Visual Changes Pulmonary: Reports: No Symptoms. Denies: Shortness of Breath Cardiovascular: Reports: No Symptoms. Denies: Chest Pain Gastrointestinal: Reports: Abdominal Pain, Decreased Appetite, Nausea, Vomiting Genitourinary: Reports: No Symptoms. Denies: Dysuria, Frequency, Burning Musculoskeletal: Reports: No Symptoms Skin: Reports: No Symptoms Neurological: Reports: No Symptoms Psychiatric: Reports: No Symptoms - Patient Data Vitals - Most Recent: Last Vital Signs Temp 98.6 F 07/01/19 14:00 Pulse 89 07/01/19 14:00 Resp 16 07/01/19 14:00 BP 186/116 H 07/01/19 14:00 Pulse Ox 94 L 07/01/19 14:00 Weight - Most Recent: 76.7 kg I&O - Last 24 Hours: Intake & Output 07/01/19 07/01/19 07/01/19 06:59 14:59 22:59 Intake Total 844 Output Total 600 Balance 244 Lab Results Last 24 Hours: Laboratory Results - last 24 hr 06/30/19 06/30/19 06/30/19 Range/Units 16:20 16:20 16:20 WBC 11.69 H (4.0-11.0) K/uL RBC 5.39 (4.50-5.90) M/uL Hgb 11.8 L (13.0-17.0) g/dL Hct 37.1 L (38.0-50.0) % MCV 68.8 L (80.0-98.0) fL MCH 21.9 L (27.0-32.0) pg MCHC 31.8 (31.0-37.0) g/dL RDW Std Deviation 42.1 (28.0-62.0) fl RDW Coeff of Dania 17 H (11.0-15.0) % Plt Count 420 H (150-400) K/uL MPV 10.10 (7.40-12.00) fL Neut % (Auto) 66.9 (48.0-80.0) % Lymph % (Auto) 23.4 (16.0-40.0) % [place] % (Auto) 7.1 (0.0-15.0) % Eos % (Auto) 2.3 (0.0-7.0) % Baso % (Auto) 0.3 (0.0-1.5) % Neut # (Auto) 7.8 H (1.4-5.7) K/uL Lymph # (Auto) 2.7 H (0.6-2.4) K/uL [place] # (Auto) 0.8 (0.0-0.8) K/uL Eos # (Auto) 0.3 (0.0-0.7) K/uL Baso # (Auto) 0.0 (0.0-0.1) K/uL Nucleated RBC % 0.0 /100WBC Nucleated RBCs # 0 K/uL INR 0.90 ABG pH (7.35-7.45) ABG pCO2 (35-45) mmHG ABG pO2 (75-100) mmHG ABG HCO3 (22-26) mEq/L ABG Total CO2 ABG Base Excess (-2.0-2.0) Sodium 143 (136-148) mmol/L Potassium 3.5 (3.5-5.1) mmol/L Chloride 104 (98-107) mmol/L Carbon Dioxide 23.5 (21.0-32.0) mmol/L BUN 38 H (7.0-18.0) mg/dL Creatinine 2.3 H (0.8-1.3) mg/dL Est Cr Clr Drug Dosing 50.14 mL/min Estimated GFR (MDRD) 39.9 ml/min Glucose 266 H (74-106) mg/dL POC Glucose (60-110) mg/dL Calcium 9.7 (8.5-10.1) mg/dL Total Bilirubin 0.1 L (0.2-1.0) mg/dL AST 39 H (15-37) IU/L ALT 50 (14-63) IU/L Alkaline Phosphatase 126 H (46-116) U/L Total Protein 7.8 (6.4-8.2) g/dL Albumin 3.2 L (3.4-5.0) g/dL Globulin 4.6 H (2.6-4.0) g/dL Albumin/Globulin Ratio 0.7 L (0.9-1.6) Lipase 36 L (73-393) U/L Urine Color Urine Appearance Urine pH (5.0-8.0) Ur Specific [place] (1.001-1.035) Urine Protein (NEGATIVE) mg/dL Urine Glucose (UA) (NEGATIVE) mg/dL Urine Ketones (NEGATIVE) mg/dL Urine Occult Blood (NEGATIVE) Urine Nitrite (NEGATIVE) Urine Bilirubin (NEGATIVE) Urine Urobilinogen (<2.0) EU/dL Ur Leukocyte Esterase (NEGATIVE) Urine RBC (0-2/HPF) Urine WBC (0-5/HPF) Ur Epithelial Cells (NONE-FEW) Urine Bacteria (NEGATIVE) Blood Type Antibody Screen 06/30/19 06/30/19 06/30/19 Range/Units 16:20 16:22 20:40 WBC (4.0-11.0) K/uL RBC (4.50-5.90) M/uL Hgb (13.0-17.0) g/dL Hct (38.0-50.0) % MCV (80.0-98.0) fL MCH (27.0-32.0) pg MCHC (31.0-37.0) g/dL RDW Std Deviation (28.0-62.0) fl RDW Coeff of Dania (11.0-15.0) % Plt Count (150-400) K/uL MPV (7.40-12.00) fL Neut % (Auto) (48.0-80.0) % Lymph % (Auto) (16.0-40.0) % [place] % (Auto) (0.0-15.0) % Eos % (Auto) (0.0-7.0) % Baso % (Auto) (0.0-1.5) % Neut # (Auto) (1.4-5.7) K/uL Lymph # (Auto) (0.6-2.4) K/uL [place] # (Auto) (0.0-0.8) K/uL Eos # (Auto) (0.0-0.7) K/uL Baso # (Auto) (0.0-0.1) K/uL Nucleated RBC % /100WBC Nucleated RBCs # K/uL INR ABG pH 7.512 H (7.35-7.45) ABG pCO2 32 L (35-45) mmHG ABG pO2 92 (75-100) mmHG ABG HCO3 26 (22-26) mEq/L ABG Total CO2 23.2 ABG Base Excess 2.9 H (-2.0-2.0) Sodium (136-148) mmol/L Potassium (3.5-5.1) mmol/L Chloride (98-107) mmol/L Carbon Dioxide (21.0-32.0) mmol/L BUN (7.0-18.0) mg/dL Creatinine (0.8-1.3) mg/dL Est Cr Clr Drug Dosing mL/min Estimated GFR (MDRD) ml/min Glucose (74-106) mg/dL POC Glucose 340 H (60-110) mg/dL Calcium (8.5-10.1) mg/dL Total Bilirubin (0.2-1.0) mg/dL AST (15-37) IU/L ALT (14-63) IU/L Alkaline Phosphatase (46-116) U/L Total Protein (6.4-8.2) g/dL Albumin (3.4-5.0) g/dL Globulin (2.6-4.0) g/dL Albumin/Globulin Ratio (0.9-1.6) Lipase (73-393) U/L Urine Color Urine Appearance Urine pH (5.0-8.0) Ur Specific [place] (1.001-1.035) Urine Protein (NEGATIVE) mg/dL Urine Glucose (UA) (NEGATIVE) mg/dL Urine Ketones (NEGATIVE) mg/dL Urine Occult Blood (NEGATIVE) Urine Nitrite (NEGATIVE) Urine Bilirubin (NEGATIVE) Urine Urobilinogen (<2.0) EU/dL Ur Leukocyte Esterase (NEGATIVE) Urine RBC (0-2/HPF) Urine WBC (0-5/HPF) Ur Epithelial Cells (NONE-FEW) Urine Bacteria (NEGATIVE) Blood Type O POSITIVE Antibody Screen NEGATIVE 07/01/19 07/01/19 07/01/19 Range/Units 02:20 06:28 06:28 WBC 17.42 H (4.0-11.0) K/uL RBC 4.91 (4.50-5.90) M/uL Hgb 10.5 L (13.0-17.0) g/dL Hct 33.7 L (38.0-50.0) % MCV 68.6 L (80.0-98.0) fL MCH 21.4 L (27.0-32.0) pg MCHC 31.2 (31.0-37.0) g/dL RDW Std Deviation 42.0 (28.0-62.0) fl RDW Coeff of Dania 17 H (11.0-15.0) % Plt Count 393 (150-400) K/uL MPV 10.10 (7.40-12.00) fL Neut % (Auto) 77.4 (48.0-80.0) % Lymph % (Auto) 16.4 (16.0-40.0) % [place] % (Auto) 6.1 (0.0-15.0) % Eos % (Auto) 0.0 (0.0-7.0) % Baso % (Auto) 0.1 (0.0-1.5) % Neut # (Auto) 13.5 H (1.4-5.7) K/uL Lymph # (Auto) 2.9 H (0.6-2.4) K/uL [place] # (Auto) 1.1 H (0.0-0.8) K/uL Eos # (Auto) 0.0 (0.0-0.7) K/uL Baso # (Auto) 0.0 (0.0-0.1) K/uL Nucleated RBC % 0.0 /100WBC Nucleated RBCs # 0 K/uL INR ABG pH (7.35-7.45) ABG pCO2 (35-45) mmHG ABG pO2 (75-100) mmHG ABG HCO3 (22-26) mEq/L ABG Total CO2 ABG Base Excess (-2.0-2.0) Sodium 145 (136-148) mmol/L Potassium 3.9 (3.5-5.1) mmol/L Chloride 108 H (98-107) mmol/L Carbon Dioxide 27.5 (21.0-32.0) mmol/L BUN 34 H (7.0-18.0) mg/dL Creatinine 2.2 H (0.8-1.3) mg/dL Est Cr Clr Drug Dosing 46.20 mL/min Estimated GFR (MDRD) 42.0 ml/min Glucose 174 H (74-106) mg/dL POC Glucose (60-110) mg/dL Calcium 8.4 L (8.5-10.1) mg/dL Total Bilirubin (0.2-1.0) mg/dL AST (15-37) IU/L ALT (14-63) IU/L Alkaline Phosphatase (46-116) U/L Total Protein (6.4-8.2) g/dL Albumin (3.4-5.0) g/dL Globulin (2.6-4.0) g/dL Albumin/Globulin Ratio (0.9-1.6) Lipase (73-393) U/L Urine Color YELLOW Urine Appearance CLEAR Urine pH 7.0 (5.0-8.0) Ur Specific [place] 1.015 (1.001-1.035) Urine Protein 100 H (NEGATIVE) mg/dL Urine Glucose (UA) >=1000 (NEGATIVE) mg/dL Urine Ketones TRACE H (NEGATIVE) mg/dL Urine Occult Blood TRACE-INTACT H (NEGATIVE) Urine Nitrite NEGATIVE (NEGATIVE) Urine Bilirubin NEGATIVE (NEGATIVE) Urine Urobilinogen 0.2 (<2.0) EU/dL Ur Leukocyte Esterase NEGATIVE (NEGATIVE) Urine RBC 1-2 (0-2/HPF) Urine WBC 0-1 (0-5/HPF) Ur Epithelial Cells RARE (NONE-FEW) Urine Bacteria RARE (NEGATIVE) Blood Type Antibody Screen 07/01/19 07/01/19 Range/Units 06:38 11:36 WBC (4.0-11.0) K/uL RBC (4.50-5.90) M/uL Hgb (13.0-17.0) g/dL Hct (38.0-50.0) % MCV (80.0-98.0) fL MCH (27.0-32.0) pg MCHC (31.0-37.0) g/dL RDW Std Deviation (28.0-62.0) fl RDW Coeff of Dania (11.0-15.0) % Plt Count (150-400) K/uL MPV (7.40-12.00) fL Neut % (Auto) (48.0-80.0) % Lymph % (Auto) (16.0-40.0) % [place] % (Auto) (0.0-15.0) % Eos % (Auto) (0.0-7.0) % Baso % (Auto) (0.0-1.5) % Neut # (Auto) (1.4-5.7) K/uL Lymph # (Auto) (0.6-2.4) K/uL [place] # (Auto) (0.0-0.8) K/uL Eos # (Auto) (0.0-0.7) K/uL Baso # (Auto) (0.0-0.1) K/uL Nucleated RBC % /100WBC Nucleated RBCs # K/uL INR ABG pH (7.35-7.45) ABG pCO2 (35-45) mmHG ABG pO2 (75-100) mmHG ABG HCO3 (22-26) mEq/L ABG Total CO2 ABG Base Excess (-2.0-2.0) Sodium (136-148) mmol/L Potassium (3.5-5.1) mmol/L Chloride (98-107) mmol/L Carbon Dioxide (21.0-32.0) mmol/L BUN (7.0-18.0) mg/dL Creatinine (0.8-1.3) mg/dL Est Cr Clr Drug Dosing mL/min Estimated GFR (MDRD) ml/min Glucose (74-106) mg/dL POC Glucose 156 H 146 H (60-110) mg/dL Calcium (8.5-10.1) mg/dL Total Bilirubin (0.2-1.0) mg/dL AST (15-37) IU/L ALT (14-63) IU/L Alkaline Phosphatase (46-116) U/L Total Protein (6.4-8.2) g/dL Albumin (3.4-5.0) g/dL Globulin (2.6-4.0) g/dL Albumin/Globulin Ratio (0.9-1.6) Lipase (73-393) U/L Urine Color Urine Appearance Urine pH (5.0-8.0) Ur Specific [place] (1.001-1.035) Urine Protein (NEGATIVE) mg/dL Urine Glucose (UA) (NEGATIVE) mg/dL Urine Ketones (NEGATIVE) mg/dL Urine Occult Blood (NEGATIVE) Urine Nitrite (NEGATIVE) Urine Bilirubin (NEGATIVE) Urine Urobilinogen (<2.0) EU/dL Ur Leukocyte Esterase (NEGATIVE) Urine RBC (0-2/HPF) Urine WBC (0-5/HPF) Ur Epithelial Cells (NONE-FEW) Urine Bacteria (NEGATIVE) Blood Type Antibody Screen Med Orders - Current: Current Medications Amlodipine Besylate (Norvasc) 10 mg PO BEDTIME [facility] Last Admin: 06/30/19 22:01 Dose: Not Given Aspirin (Halfprin) 81 mg PO DAILY [facility] Last Admin: 07/01/19 09:12 Dose: 81 mg Atorvastatin Calcium (Lipitor) 80 mg PO BEDTIME [facility] Last Admin: 06/30/19 22:01 Dose: Not Given Doxazosin Mesylate (Cardura) 4 mg PO BEDTIME [facility] Last Admin: 06/30/19 22:01 Dose: Not Given Enalapril Maleate (Vasotec) 40 mg PO BEDTIME [facility] Last Admin: 06/30/19 22:01 Dose: Not Given Ferrous Sulfate (Ferrous Sulfate) 325 mg PO DAILY [facility] Last Admin: 07/01/19 09:12 Dose: 325 mg Hydralazine HCl (Apresoline) 25 mg PO TID [facility] Last Admin: 07/01/19 13:53 Dose: 25 mg Hydrochlorothiazide (Hydrochlorothiazide) 25 mg PO DAILY [facility] Last Admin: 07/01/19 09:12 Dose: 25 mg Hydromorphone HCl (Dilaudid) 1 mg IVPUSH Q3H PRN PRN Reason: Pain Sodium Chloride (Normal Saline) 1,000 mls @ 125 mls/hr IV ASDIRECTED [facility] Last Admin: 07/01/19 07:07 Dose: 125 mls/hr Insulin Aspart (Novolog) 0 unit SUBCUT ASDIRECTED PRN; Protocol PRN Reason: elevated blood sugar Last Admin: 06/30/19 21:06 Dose: 4 units Insulin Glargine (Lantus Solostar) 35 units SUBCUT BEDTIME [facility] Last Admin: 06/30/19 21:06 Dose: 35 units Lorazepam (Ativan) 1 mg IV Q6H PRN PRN Reason: Nausea/Vomiting Last Admin: 07/01/19 07:48 Dose: 1 mg Metoclopramide HCl (Reglan) 10 mg IVPUSH Q8H [facility] Metoprolol Succinate (Toprol Xl) 200 mg PO DAILY [facility] Last Admin: 07/01/19 09:12 Dose: 200 mg Ondansetron HCl (Zofran) 4 mg IVPUSH Q4H PRN PRN Reason: Nausea Last Admin: 07/01/19 06:26 Dose: 4 mg Pantoprazole Sodium (Protonix) 40 mg PO DAILY [facility] Last Admin: 07/01/19 09:12 Dose: 40 mg Promethazine HCl (Phenergan) 12.5 mg IM Q6H PRN PRN Reason: Nausea Spironolactone (Aldactone) 25 mg PO DAILY [facility] Last Admin: 07/01/19 09:12 Dose: 25 mg Sucralfate (Carafate) 1 gm PO QIDACANDBED [facility] Last Admin: 07/01/19 11:45 Dose: 1 gm Discontinued Medications Diphenhydramine HCl (Benadryl) 50 mg IVPUSH ONETIME ONE Stop: 06/30/19 16:09 Last Admin: 06/30/19 17:21 Dose: 50 mg Hydralazine HCl (Apresoline) 10 mg IVPUSH ONETIME ONE Stop: 06/30/19 16:11 Last Admin: 06/30/19 17:29 Dose: 10 mg Hydromorphone HCl (Dilaudid) 1 mg IVPUSH ONETIME ONE Stop: 06/30/19 16:09 Last Admin: 06/30/19 17:18 Dose: 1 mg Sodium Chloride (Normal Saline) 1,000 mls @ 999 mls/hr IV STAT ONE Stop: 06/30/19 17:08 Last Admin: 06/30/19 17:09 Dose: 999 mls/hr Sodium Chloride (Normal Saline) Confirm Administered Dose 20 mls @ as directed .ROUTE .STK-MED ONE Stop: 06/30/19 17:02 Last Admin: 06/30/19 20:04 Dose: Not Given Metoclopramide HCl (Reglan) 10 mg IV ONETIME ONE Stop: 06/30/19 16:10 Last Admin: 06/30/19 17:13 Dose: 10 mg Metoclopramide HCl (Reglan) 10 mg PO TID PRN PRN Reason: Vomiting Metoclopramide HCl (Reglan) 10 mg PO TID [facility] Last Admin: 07/01/19 09:12 Dose: 10 mg Metoprolol Tartrate (Lopressor) 5 mg IVPUSH ONETIME ONE Stop: 07/01/19 08:56 Last Admin: 07/01/19 09:16 Dose: 5 mg Morphine Sulfate (Morphine) 2 mg IVPUSH Q2H PRN PRN Reason: Pain (severe 7-10) Stop: 07/01/19 22:07 Last Admin: 07/01/19 06:25 Dose: 2 mg Ondansetron HCl (Zofran) 4 mg IVPUSH ONETIME ONE Stop: 06/30/19 16:09 Last Admin: 06/30/19 17:10 Dose: 4 mg Pantoprazole Sodium (Protonix Iv) 80 mg IVPUSH .BOLUS ONE Stop: 06/30/19 16:09 Last Admin: 06/30/19 17:35 Dose: 80 mg - Exam General: Alert, Oriented, Cooperative, No Acute Distress Lungs: Clear to Auscultation, Normal Respiratory Effort Cardiovascular: Regular Rate, Regular Rhythm GI/Abdominal Exam: Normal Bowel Sounds, Soft, Tender (LUQ) Back Exam: Normal Inspection, Full Range of Motion Extremities: Normal Inspection, Normal Range of Motion, Non-Tender, No Pedal Edema Wound/Incisions: Healing Well Neurological: No New Focal Deficit Psy/Mental Status: Alert, Normal Affect, Normal Mood - Problem List & Annotations (1) Gastroparesis SNOMED Code(s): 163834196 Code(s): K31.84 - GASTROPARESIS Status: Acute Priority: High Current Visit: No (2) Intractable nausea and vomiting SNOMED Code(s): 514645403 Code(s): R11.2 - NAUSEA WITH VOMITING, UNSPECIFIED Status: Acute Priority : High Current Visit: No (3) Medical non-compliance SNOMED Code(s): 193977427 Code(s): Z91.19 - PATIENT'S NONCOMPLIANCE W OTH MEDICAL TREATMENT AND REGIMEN Status: Acute Current Visit: No (4) Anemia in chronic illness SNOMED Code(s): 304098559 Code(s): D63.8 - ANEMIA IN OTHER CHRONIC DISEASES CLASSIFIED ELSEWHERE Status: Chronic Current Visit: No (5) Chronic kidney disease, stage 3 (moderate) SNOMED Code(s): 030024995 Code(s): N18.3 - CHRONIC KIDNEY DISEASE, STAGE 3 (MODERATE) Status: Chronic Priority: High Current Visit: No (6) Diabetes mellitus type I SNOMED Code(s): 45702731 Code(s): E10.9 - TYPE 1 DIABETES MELLITUS WITHOUT COMPLICATIONS Status: Chronic Current Visit: No Qualifiers: Diabetes mellitus complication status: with kidney complications Diabetes mellitus complication detail: with chronic kidney disease Chronic kidney disease stage: stage 3 (moderate) Qualified Code(s): E10.22 - Type 1 diabetes mellitus with diabetic chronic kidney disease; N18.3 - Chronic kidney disease, stage 3 (moderate) (7) History of CVA (cerebrovascular accident) SNOMED Code(s): 035534966 Code(s): Z86.73 - PRSNL HX OF TIA (TIA), AND CEREB INFRC W/O RESID DEFICITS Status: Chronic Current Visit: No (8) History of GI bleed SNOMED Code(s): 423823481 Code(s): Z87.19 - PERSONAL HISTORY OF OTHER DISEASES OF THE DIGESTIVE SYSTEM Status: Chronic Current Visit: No (9) Hx of gastroesophageal reflux (GERD) SNOMED Code(s): 08811543619237 Code(s): Z87.19 - PERSONAL HISTORY OF OTHER DISEASES OF THE DIGESTIVE SYSTEM Status: Chronic Current Visit: No (10) Hypertension SNOMED Code(s): 05304136 Code(s): I10 - ESSENTIAL (PRIMARY) HYPERTENSION Status: Chronic Current Visit: No Qualifiers: Hypertension type: essential hypertension Qualified Code(s): I10 - Essential (primary) hypertension (11) S/P BKA (below knee amputation) unilateral SNOMED Code(s): 191656604, 27045745, 253188067 Code(s): Z89.519 - ACQUIRED ABSENCE OF UNSPECIFIED LEG BELOW KNEE Status: Chronic Priority: Medium Current Visit: No - Problem List Review Problem List Initiated/Reviewed/Updated: Yes - My Orders Last 24 Hours: My Active Orders 07/01/19 08:01 HYDROmorphone [Dilaudid] 1 mg IVPUSH Q3H PRN 07/01/19 11:47 Communication Order [RC] PRN 07/01/19 13:16 Promethazine [Phenergan] 12.5 mg IM Q6H PRN 07/01/19 17:00 Metoclopramide [Reglan] 10 mg IVPUSH Q8H - Plan Plan:: 34 yo male admitted for abdominal pain, nausea and vomiting due to gastroparesis. 1. Gastroparesis: Again cut back on Relgan dosing at home. Starting having nausea and vomiting along with severe pain. Given Reglan in the ED. Will continue Reglan TID IV. Along with other antiemetics. Reports he had insurance change and new referral needed to be sent for GI appointment at [facility] by PCP, This needs to be high priority due to frequent admissions for gastroparesis. Continue IVFs. 2. DM Type 1: Continue Lantus, will cut back dose due to not eating much currently. Novolog SSI. 3. HTN: Elevated, refusing PO meds. WIll monitor. Starting to take his PO this afternoon. 4. Hx CKD: Stable Monitor. VTE prophylaxis: SCDS Dispo 1 day
[2019-07-01] MEDS: Metoclopramide 10 MG/2 ML SDV IVPUSH SCH (16:10)
[2019-07-01] MEDS: HYDROmorphone 1 MG/ML Syringe IVPUSH PRN ×2 (17:09→21:53)
[2019-07-01] MEDS: atorvaSTATin 40 MG Tab PO SCH (20:12)
[2019-07-01] MEDS: amLODIPine 5 MG Tab PO SCH (20:13)
[2019-07-01] MEDS: Doxazosin 4 MG Tab PO SCH (20:16)
[2019-07-01] MEDS ORDERED: Insulin Glargine,Human Rec. Analog 100 Units/ML 3 ML Pen SUBCUT SCH (21:00)
[2019-07-02] MEDS: LORazepam 2 MG/ML SDV IV PRN (00:08)
[2019-07-02] MEDS: Sodium Chloride 0.9% 1,000 ML IV SCH ×2 (01:31→08:37)
[2019-07-02] MEDS: Metoclopramide 10 MG/2 ML SDV IVPUSH SCH ×2 (01:31→08:28)
[2019-07-02] MEDS: hydrALAZINE 25 MG Tab PO SCH (06:41)
[2019-07-02] MEDS: Sucralfate Suspension 1 GM/10 ML Cup PO SCH (06:41)
[2019-07-02 07:12] LABS: CARBON DIOXIDE,CO2 26.9 mmol/L (21.0-32.0); POTASSIUM,K 3.4 mmol/L (3.5-5.1)
[2019-07-02] MEDS: Metoprolol Succinate 100 MG Tab.ER PO SCH (08:27)
[2019-07-02] MEDS: Ferrous Sulfate 325 MG Tab PO SCH (08:27)
[2019-07-02] MEDS: Hydrochlorothiazide 25 MG Tab PO SCH (08:27)
[2019-07-02] MEDS: Spironolactone 25 MG Tab PO SCH (08:27)
[2019-07-02] MEDS: Pantoprazole 40 MG Tab.CR PO SCH (08:27)
[2019-07-02 08:28] VITALS: BP 141/87; PULSE 93
[2019-07-02] MEDS: Aspirin 81 MG Tab.EC PO SCH (08:28)
--- NOTE | 2019-07-02 09:27 | PCM.DCSUM1 ---
Discharge Summary - Hospital Course HPI Initial Comments: The patient was admitted secondary to diabetic gastroparesis and nausea vomiting with abdominal pain. Diagnosis: Stroke: No - Discharge Data Discharge Date: 07/02/19 Discharge Disposition: Home, Self-Care 01 Condition: Fair - Referral to Home Health Primary Care Physician: PCP Unobtainable - Patient Summary/Data Hospital Course: The patient is a 34-year-old gentleman who was admitted on June 30, 2019 secondary to severe abdominal pain, nausea and vomiting. The patient has poorly controlled diabetes and is well-known to the staff. The patient was admitted and treated with IV fluids, IV narcotics and IV antiemetics. The patient continued to recover to the short course of hospitalization. The patient also had an abdominal x-ray which showed no dilated loops and no abnormal calcifications. The patient's dehydration had improved significantly. The patient's vital signs were also stabilized. The patient said that he feels like he can go home this time. He has been tolerating his diet. Patient has been recommended to continue with his diabetic diet as tolerated. He is also to have activity as tolerated. 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 The patient 's hemoglobin throughout his hospitalization had remained his normal range of 8.8 g/dL. He did not require blood transfusion. The patient is continue with his diabetic diet as tolerated. He is also to have activity as tolerated. The patient has been hemodynamically stable and he is discharged from acute hospitalization with recommendations above. - Patient Instructions Diet: Heart Healthy Diet, Diabetic Diet Activity: As Tolerated - Discharge Plan *PRESCRIPTION DRUG MONITORING PROGRAM REVIEWED*: No *COPY OF PRESCRIPTION DRUG MONITORING REPORT IN PATIENT IVELISSE: No Home Medications: Home Meds Doxazosin [Cardura] 4 mg PO BEDTIME 09/25/17 [History] Enalapril [Vasotec] 40 mg PO BEDTIME 09/25/17 [History] Torsemide 20 mg PO DAILY 09/25/17 [History] amLODIPine Besylate [Amlodipine Besylate] 10 mg PO BEDTIME 09/25/17 [History] Ferrous Sulfate 324 mg PO DAILY 01/20/18 [History] hydrALAZINE [Apresoline] 25 mg PO TID 30 Days #90 tablet 01/29/18 [Rx] Insulin Glarg,Human.Rec.Analog [Lantus Solostar] 35 units SUBCUT BEDTIME [History] Insulin Aspart [NovoLOG] 0 unit SUBCUT ASDIRECTED PRN 05/23/18 [History] Spironolactone [Aldactone] 25 mg PO DAILY 12/14/18 [History] hydroCHLOROthiazide [Hydrochlorothiazide] 25 mg PO DAILY 12/14/18 [History] Aspirin [Halfprin] 81 mg PO DAILY #30 tab.ec 12/15/18 [Rx] Sucralfate [Carafate] 1 gm PO QIDACANDBED #120 ml 04/05/19 [Rx] Metoclopramide HCl [Reglan] 10 mg PO TID PRN #20 tablet 06/17/19 [Rx] Metoprolol Succinate 2 tab PO DAILY 06/17/19 [History] Pantoprazole Sodium [Protonix] 40 mg PO DAILY 06/17/19 [History] atorvaSTATin [Lipitor] 80 mg PO BEDTIME 06/17/19 [History] Metoclopramide [Reglan] 10 mg PO BIDAC PRN #30 tablet 06/21/19 [Rx] Oxygen Therapy Mode: Room Air Patient Handouts: Type 1 Diabetes Mellitus, Diagnosis, Adult, [id number], Gastroparesis Referrals: Fitz Infante MD [Physician] - 07/12/19 9:00 am - Discharge Summary/Plan Comment DC Time >30 min.: Yes - General Info Date of Service: 07/02/19 Admission Dx/Problem (Free Text: Admission Diagnosis/Problem Admission Diagnosis/Problem Vomiting, nausea, abdominal pain, diabetes mellitus type 1, gastroparesis Subjective Update: The patient has been ambulating. His nausea vomiting had been controlled. The patient says that his pain is tolerable. He has follow-up pending and [facility] for gastroparesis specialist. Functional Status: Reports: Pain Controlled - Review of Systems General: Reports: No Symptoms HEENT: Reports: No Symptoms Pulmonary: Reports: No Symptoms Cardiovascular: Reports: No Symptoms Gastrointestinal: Reports: No Symptoms Genitourinary: Reports: No Symptoms Musculoskeletal: Reports: No Symptoms Skin: Reports: No Symptoms Neurological: Reports: No Symptoms Psychiatric: Reports: No Symptoms - Patient Data Vitals - Most Recent: Last Vital Signs Temp 36.4 C 07/02/19 08:00 Pulse 93 07/02/19 08:27 Resp 18 07/02/19 08:00 BP 141/87 H 07/02/19 08:27 Pulse Ox 99 07/02/19 08:00 Weight - Most Recent: 76.7 kg I&O - Last 24 hours: Intake & Output 07/01/19 07/02/19 07/02/19 22:59 06:59 14:59 Intake Total 1295 1851 Output Total 1075 600 Balance 220 1251 Lab Results - Last 24 hrs: Laboratory Results - last 24 hr 07/01/19 07/01/19 07/02/19 Range/Units 11:36 16:51 04:33 WBC (4.0-11.0) K/uL RBC (4.50-5.90) M/uL Hgb (13.0-17.0) g/dL Hct (38.0-50.0) % MCV (80.0-98.0) fL MCH (27.0-32.0) pg MCHC (31.0-37.0) g/dL RDW Std Deviation (28.0-62.0) fl RDW Coeff of Dania (11.0-15.0) % Plt Count (150-400) K/uL MPV (7.40-12.00) fL Neut % (Auto) (48.0-80.0) % Lymph % (Auto) (16.0-40.0) % Stevens % (Auto) (0.0-15.0) % Eos % (Auto) (0.0-7.0) % Baso % (Auto) (0.0-1.5) % Neut # (Auto) (1.4-5.7) K/uL Lymph # (Auto) (0.6-2.4) K/uL Stevens # (Auto) (0.0-0.8) K/uL Eos # (Auto) (0.0-0.7) K/uL Baso # (Auto) (0.0-0.1) K/uL Nucleated RBC % /100WBC Nucleated RBCs # K/uL Sodium (136-148) mmol/L Potassium (3.5-5.1) mmol/L Chloride (98-107) mmol/L Carbon Dioxide (21.0-32.0) mmol/L BUN (7.0-18.0) mg/dL Creatinine (0.8-1.3) mg/dL Est Cr Clr Drug Dosing mL/min Estimated GFR (MDRD) ml/min Glucose (74-106) mg/dL POC Glucose 146 H 76 49 L (60-110) mg/dL Calcium (8.5-10.1) mg/dL 07/02/19 07/02/19 07/02/19 Range/Units 06:13 06:30 06:30 WBC 9.63 (4.0-11.0) K/uL RBC 4.11 L (4.50-5.90) M/uL Hgb 8.8 L (13.0-17.0) g/dL Hct 28.7 L (38.0-50.0) % MCV 69.8 L (80.0-98.0) fL MCH 21.4 L (27.0-32.0) pg MCHC 30.7 L (31.0-37.0) g/dL RDW Std Deviation 42.3 (28.0-62.0) fl RDW Coeff of Dania 17 H (11.0-15.0) % Plt Count 306 (150-400) K/uL MPV 10.00 (7.40-12.00) fL Neut % (Auto) 62.5 (48.0-80.0) % Lymph % (Auto) 28.0 (16.0-40.0) % Stevens % (Auto) 7.2 (0.0-15.0) % Eos % (Auto) 2.0 (0.0-7.0) % Baso % (Auto) 0.3 (0.0-1.5) % Neut # (Auto) 6.0 H (1.4-5.7) K/uL Lymph # (Auto) 2.7 H (0.6-2.4) K/uL Stevens # (Auto) 0.7 (0.0-0.8) K/uL Eos # (Auto) 0.2 (0.0-0.7) K/uL Baso # (Auto) 0.0 (0.0-0.1) K/uL Nucleated RBC % 0.0 /100WBC Nucleated RBCs # 0 K/uL Sodium 142 (136-148) mmol/L Potassium 3.4 L (3.5-5.1) mmol/L Chloride 108 H (98-107) mmol/L Carbon Dioxide 26.9 (21.0-32.0) mmol/L BUN 20 H (7.0-18.0) mg/dL Creatinine 1.7 H (0.8-1.3) mg/dL Est Cr Clr Drug Dosing 59.79 mL/min Estimated GFR (MDRD) 56.5 ml/min Glucose 89 (74-106) mg/dL POC Glucose 91 (60-110) mg/dL Calcium 7.8 L (8.5-10.1) mg/dL 07/02/19 Range/Units 08:32 WBC (4.0-11.0) K/uL RBC (4.50-5.90) M/uL Hgb (13.0-17.0) g/dL Hct (38.0-50.0) % MCV (80.0-98.0) fL MCH (27.0-32.0) pg MCHC (31.0-37.0) g/dL RDW Std Deviation (28.0-62.0) fl RDW Coeff of Dania (11.0-15.0) % Plt Count (150-400) K/uL MPV (7.40-12.00) fL Neut % (Auto) (48.0-80.0) % Lymph % (Auto) (16.0-40.0) % Stevens % (Auto) (0.0-15.0) % Eos % (Auto) (0.0-7.0) % Baso % (Auto) (0.0-1.5) % Neut # (Auto) (1.4-5.7) K/uL Lymph # (Auto) (0.6-2.4) K/uL Stevens # (Auto) (0.0-0.8) K/uL Eos # (Auto) (0.0-0.7) K/uL Baso # (Auto) (0.0-0.1) K/uL Nucleated RBC % /100WBC Nucleated RBCs # K/uL Sodium (136-148) mmol/L Potassium (3.5-5.1) mmol/L Chloride (98-107) mmol/L Carbon Dioxide (21.0-32.0) mmol/L BUN (7.0-18.0) mg/dL Creatinine (0.8-1.3) mg/dL Est Cr Clr Drug Dosing mL/min Estimated GFR (MDRD) ml/min Glucose (74-106) mg/dL POC Glucose 88 (60-110) mg/dL Calcium (8.5-10.1) mg/dL Med Orders - Current: Current Medications Amlodipine Besylate (Norvasc) 10 mg PO BEDTIME [facility] Last Admin: 07/01/19 20:13 Dose: 10 mg Aspirin (Halfprin) 81 mg PO DAILY [facility] Last Admin: 07/02/19 08:28 Dose: 81 mg Atorvastatin Calcium (Lipitor) 80 mg PO BEDTIME [facility] Last Admin: 07/01/19 20:12 Dose: 80 mg Doxazosin Mesylate (Cardura) 4 mg PO BEDTIME [facility] Last Admin: 07/01/19 20:16 Dose: 4 mg Enalapril Maleate (Vasotec) 40 mg PO BEDTIME [facility] Last Admin: 07/01/19 20:15 Dose: 40 mg Ferrous Sulfate (Ferrous Sulfate) 325 mg PO DAILY [facility] Last Admin: 07/02/19 08:27 Dose: 325 mg Hydralazine HCl (Apresoline) 25 mg PO TID [facility] Last Admin: 07/02/19 06:41 Dose: 25 mg Hydrochlorothiazide (Hydrochlorothiazide) 25 mg PO DAILY [facility] Last Admin: 07/02/19 08:27 Dose: 25 mg Hydromorphone HCl (Dilaudid) 1 mg IVPUSH Q3H PRN PRN Reason: Pain Last Admin: 07/01/19 21:53 Dose: 1 mg Sodium Chloride (Normal Saline) 1,000 mls @ 125 mls/hr IV ASDIRECTED MICHAEL Last Admin: 07/02/19 08:37 Dose: 125 mls/hr Insulin Aspart (Novolog) 0 unit SUBCUT ASDIRECTED PRN; Protocol PRN Reason: elevated blood sugar Last Admin: 06/30/19 21:06 Dose: 4 units Insulin Glargine (Lantus Solostar) 18 units SUBCUT BEDTIME [facility] Last Admin: 07/01/19 21:46 Dose: Not Given Lorazepam (Ativan) 1 mg IV Q6H PRN PRN Reason: Nausea/Vomiting Last Admin: 07/02/19 00:08 Dose: 1 mg Metoclopramide HCl (Reglan) 10 mg IVPUSH Q8H [facility] Last Admin: 07/02/19 08:28 Dose: 10 mg Metoprolol Succinate (Toprol Xl) 200 mg PO DAILY [facility] Last Admin: 07/02/19 08:27 Dose: 200 mg Ondansetron HCl (Zofran) 4 mg IVPUSH Q4H PRN PRN Reason: Nausea Last Admin: 07/01/19 06:26 Dose: 4 mg Pantoprazole Sodium (Protonix) 40 mg PO DAILY [facility] Last Admin: 07/02/19 08:27 Dose: 40 mg Promethazine HCl (Phenergan) 12.5 mg IM Q6H PRN PRN Reason: Nausea Last Admin: 07/01/19 17:03 Dose: 12.5 mg Spironolactone (Aldactone) 25 mg PO DAILY [facility] Last Admin: 07/02/19 08:27 Dose: 25 mg Sucralfate (Carafate) 1 gm PO QIDACANDBED [facility] Last Admin: 07/02/19 06:41 Dose: 1 gm Discontinued Medications Diphenhydramine HCl (Benadryl) 50 mg IVPUSH ONETIME ONE Stop: 06/30/19 16:09 Last Admin: 06/30/19 17:21 Dose: 50 mg Hydralazine HCl (Apresoline) 10 mg IVPUSH ONETIME ONE Stop: 06/30/19 16:11 Last Admin: 06/30/19 17:29 Dose: 10 mg Hydromorphone HCl (Dilaudid) 1 mg IVPUSH ONETIME ONE Stop: 06/30/19 16:09 Last Admin: 06/30/19 17:18 Dose: 1 mg Sodium Chloride (Normal Saline) 1,000 mls @ 999 mls/hr IV STAT ONE Stop: 06/30/19 17:08 Last Admin: 06/30/19 17:09 Dose: 999 mls/hr Sodium Chloride (Normal Saline) Confirm Administered Dose 20 mls @ as directed .ROUTE .STK-MED ONE Stop: 06/30/19 17:02 Last Admin: 06/30/19 20:04 Dose: Not Given Insulin Glargine (Lantus Solostar) 35 units SUBCUT BEDTIME [facility] Last Admin: 06/30/19 21:06 Dose: 35 units Metoclopramide HCl (Reglan) 10 mg IV ONETIME ONE Stop: 06/30/19 16:10 Last Admin: 06/30/19 17:13 Dose: 10 mg Metoclopramide HCl (Reglan) 10 mg PO TID PRN PRN Reason: Vomiting Metoclopramide HCl (Reglan) 10 mg PO TID [facility] Last Admin: 07/01/19 09:12 Dose: 10 mg Metoprolol Tartrate (Lopressor) 5 mg IVPUSH ONETIME ONE Stop: 07/01/19 08:56 Last Admin: 07/01/19 09:16 Dose: 5 mg Morphine Sulfate (Morphine) 2 mg IVPUSH Q2H PRN PRN Reason: Pain (severe 7-10) Stop: 07/01/19 22:07 Last Admin: 07/01/19 06:25 Dose: 2 mg Ondansetron HCl (Zofran) 4 mg IVPUSH ONETIME ONE Stop: 06/30/19 16:09 Last Admin: 06/30/19 17:10 Dose: 4 mg Pantoprazole Sodium (Protonix Iv) 80 mg IVPUSH .BOLUS ONE Stop: 06/30/19 16:09 Last Admin: 06/30/19 17:35 Dose: 80 mg - Exam Quality Assessment: Denies: Supplemental Oxygen General: Reports: Alert, Oriented, Cooperative, No Acute Distress HEENT: Reports: Pupils Equal, Mucous Membr. Moist/[place], Other (Blind right eye) Neck: Reports: Supple, Trachea Midline Lungs: Reports: Clear to Auscultation, Normal Respiratory Effort Cardiovascular: Reports: Regular Rate, Regular Rhythm GI/Abdominal Exam: Normal Bowel Sounds, Soft, No Distention Back Exam: Reports: Normal Inspection, Full Range of Motion Extremities: No: Normal Inspection (Right BKA) Skin: Reports: Warm, Dry, Intact Neurological: Reports: No New Focal Deficit Psy/Mental Status: Reports: Alert, Normal Affect, Normal Mood
== END 2019-07-02 10:20 | disposition home or self-care (01) ==
LOC: MW.ED 16:02 → MW.MS 18:00
PROVIDERS: ADMIT Internal Medicine; ATTEND Internal Medicine
DX: E10.43 Type 1 diabetes mellitus with diabetic autonomic (poly)neuropathy (principal); K31.84 Gastroparesis; E10.65 Type 1 diabetes mellitus with hyperglycemia; E86.0 Dehydration; E10.22 Type 1 diabetes mellitus with diabetic chronic kidney disease; N18.3 Chronic kidney disease, stage 3 (moderate); D63.1 Anemia in chronic kidney disease; H54.7 Unspecified visual loss; K21.9 Gastro-esophageal reflux disease without esophagitis; Z88.0 Allergy status to penicillin; Z91.013 Allergy to seafood; Z91.018 Allergy to other foods; Z91.048 Other nonmedicinal substance allergy status; Z91.19 Patient's noncompliance with other medical treatment and regimen; Z79.82 Long term (current) use of aspirin; Z79.899 Other long term (current) drug therapy
CPT/HCPCS: 36415; 36600; 74022; 80048; 80053; 81001; 82803; 82962; 83690; 85025; 85610; 86850; 86900; 86901; 93005; 96361; 96374; 96375; 99285; A9270; C9113; J0360; J1170; J1200; J1815; J2060; J2270; J2405; J2550; J2765; J3490; J7040; 96372; 96376; G0378

== ENCOUNTER 2019-07-30 05:37 | Inpatient (IN) | payer BC, MEDICAID ==
[2019-07-30] MEDS ORDERED: diphenhydrAMINE 50 MG/ML SDV IVPUSH ONE ×2 (05:50→12:03)
[2019-07-30] MEDS ORDERED: LORazepam 2 MG/ML SDV IVPUSH ONE ×2 (05:50→12:03)
[2019-07-30] MEDS ORDERED: Sodium Chloride 0.9% 1,000 ML IV ONE ×2 (05:50→09:30)
[2019-07-30] MEDS ORDERED: Metoclopramide 10 MG/2 ML SDV IV ONE (05:50)
[2019-07-30] MEDS ORDERED: Sodium Chloride 0.9% 10 ML Syringe FLUSH PRN (05:50)
[2019-07-30] MEDS ORDERED: Sodium Chloride 0.9% 2.5 ML Syringe FLUSH PRN (05:50)
[2019-07-30] MEDS ORDERED: Pantoprazole 40 MG Vial IVPUSH ONE (05:52)
--- NOTE | 2019-07-30 05:56 | EDM.PDOC ---
ED HPI GENERAL MEDICAL PROBLEM - General Chief Complaint: Gastrointestinal Problem Stated Complaint: AMB Time Seen by Provider: 07/30/19 05:45 - History of Present Illness INITIAL COMMENTS - FREE TEXT/NARRATIVE: HISTORY AND PHYSICAL: History of present illness: The patient is a 34-year-old male who is well known to this emergency department and this provider for repeated visits for gastroparesis, intractable vomiting and coffee-ground emesis along with intractable abdominal pain. He also has a history of hypertension and hypercholesterolemia a right BKA and right eye blindness and was admitted here twice in June for similar symptoms. The patient tells me that starting yesterday morning, approximately 24 hours ago, he started having nausea and vomiting which became intractable associated with his diffuse abdominal pain. He tells me he has not followed up with GI nor has he followed up with his primary care physician since his last admission here several weeks ago. He told me that he didn't have the time to do that and he does state that his blood sugar started to go up yesterday when he started getting sick. He has no chest pain or shortness of breath no fevers chills or upper respiratory infections and has no complaints of dysuria. The patient's presentation via EMS is very similar to all of his other prior encounters with this provider. GI in the past and has a known diagnosis of gastroparesis secondary to his diabetes and has the belief that he needs narcotics in order to break his cycle of vomiting --he is told this to me on prior encounters in this emergency department. Is not taking anything specifically at home for this pain The patient has Reglan at home to take it is unclear if he was able to tolerate that to assist with his vomiting. The patient has a known history of poorly controlled hypertension as well and history of medication noncompliance Review of systems: As per history of present illness and below otherwise all systems reviewed and negative. Past medical history: As per history of present illness and as reviewed below otherwise noncontributory.. Surgical history: As per history of present illness and as reviewed below otherwise noncontributory. Social history: No reported history of drug or alcohol abuse. Family history: As per history of present illness and as reviewed below otherwise noncontributory. Physical exam: General: Well-developed well-nourished man who is nontoxic and writhing about yelling moaning and groaning but can be redirected briefly. Vital signs are noted by me. Patient is very anxious the patient has vomitus in the back which looks hernandez brown in color and according to nursing when he arrived per EMS there was a small amount of coffee-ground emesis but it is not copious nor is it clots or frankly bloody HEENT: Atraumatic, normocephalic, pupils reactive, negative for conjunctival pallor or scleral icterus, mucous membranes tacky, throat clear, neck supple, nontender, trachea midline. Lungs: Clear to auscultation, breath sounds equal bilaterally, chest nontender. Heart: S1S2, regular rhythm and slightly tachycardic rate of my evaluation with no overt murmurs Abdomen: Soft, nondistended, bowel sounds are hypoactive and there is no tubing and percussion and there is mild upper abdominal tenderness on deep palpation without rebound or guarding Negative for masses or hepatosplenomegaly. Negative for costovertebral tenderness. Pelvis: Stable nontender. Genitourinary: Deferred. Rectal: Deferred. Extremities: Atraumatic, negative for cords or calf pain. Neurovascular unremarkable. The patient has a right BKA Neuro: Awake, alert, oriented. Cranial nerves II through XII unremarkable. Cerebellum unremarkable. Motor and sensory unremarkable throughout. Exam nonfocal. Skin: Turgor is normal and there is no diaphoresis and no overt rashes or lesions Diagnostics: CBC CMP INR amylase lipase serum ketones UA with reflex UDS hemoglobin A1c abdominal x-rays Therapeutics: IV fluids Reglan Benadryl Ativan Protonix hydralazine 0650: Case was discussed with our hospitalist Dr. Means; she is aware of patient and agrees with observation admission and she would like the patient on telemetry. She is aware of the medications that haven't been given and of his blood work. He is currently still receiving his first liter of fluid as his IV is somewhat positional and he is not keeping his arm in a position to allow good IV flow. He Is currently in the prone position resting comfortably. He is aware of his need for observation admission Impression: Intractable vomiting and abdominal pain with history of gastroparesis Poorly controlled hypertension Definitive disposition and diagnosis as appropriate pending reevaluation and review of above. Abdomen Pain Score (Numeric/FACES): 9 - Related Data Allergies Allergy/AdvReac Type Severity Reaction Status Date / Time shrimp Allergy Severe Swelling Verified 06/30/19 20:18 iodine Allergy Unknown Anaphylactic Verified 06/30/19 20:18 Shock Penicillins Allergy Unknown Anaphylactic Verified 06/30/19 20:18 Shock shellfish derived Allergy Anaphylactic Verified 06/30/19 20:18 Shock gluten Allergy Unknown Muscle Uncoded 06/30/19 20:18 Aches Home Meds: Home Meds Doxazosin [Cardura] 4 mg PO BEDTIME 09/25/17 [History] Enalapril [Vasotec] 40 mg PO BEDTIME 09/25/17 [History] Torsemide 20 mg PO DAILY 09/25/17 [History] amLODIPine Besylate [Amlodipine Besylate] 10 mg PO BEDTIME 09/25/17 [History] Ferrous Sulfate 324 mg PO DAILY 01/20/18 [History] hydrALAZINE [Apresoline] 25 mg PO TID 30 Days #90 tablet 01/29/18 [Rx] Insulin Glarg,Human.Rec.Analog [Lantus Solostar] 35 units SUBCUT BEDTIME [History] Insulin Aspart [NovoLOG] 0 unit SUBCUT ASDIRECTED PRN 05/23/18 [History] Spironolactone [Aldactone] 25 mg PO DAILY 12/14/18 [History] hydroCHLOROthiazide [Hydrochlorothiazide] 25 mg PO DAILY 12/14/18 [History] Aspirin [Halfprin] 81 mg PO DAILY #30 tab.ec 12/15/18 [Rx] Sucralfate [Carafate] 1 gm PO QIDACANDBED #120 ml 04/05/19 [Rx] Metoclopramide HCl [Reglan] 10 mg PO TID PRN #20 tablet 06/17/19 [Rx] Metoprolol Succinate 2 tab PO DAILY 06/17/19 [History] Pantoprazole Sodium [Protonix] 40 mg PO DAILY 06/17/19 [History] atorvaSTATin [Lipitor] 80 mg PO BEDTIME 06/17/19 [History] Metoclopramide [Reglan] 10 mg PO BIDAC PRN #30 tablet 06/21/19 [Rx] Past Medical History - Past Health History Medical/Surgical History: Denies Medical/Surgical History HEENT History: Reports: Impaired Vision Other HEENT History: blind right eye Cardiovascular History: Reports: Hypertension Respiratory History: Reports: None Gastrointestinal History: Reports: Gastritis, GERD, Hiatal Hernia, Other (See Below) Other Gastrointestinal History: h/o gastric ulcers, h/o hiatal hernia; gastroparesis Genitourinary History: Reports: Chronic Renal Insuffiency, Diabetic Nephropathy Musculoskeletal History: Reports: Amputation Neurological History: Reports: Neuropathy, Peripheral Other Neuro History: stroke 3 months ago Psychiatric History: Reports: Anxiety Endocrine/Metabolic History: Reports: Diabetes, Type I Other Endocrine/Metabolic History: brittle diabetic. 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 - Past Surgical History Head Surgeries/Procedures: Reports: None Social & Family History - Family History Family Medical History: Noncontributory Cardiac: Reports: High Cholesterol, Hypertension OBGYN: Reports: Neurological: Reports: None - Tobacco Use Smoking Status *Q: Never Smoker - Caffeine Use Caffeine Use: Reports: None Other Caffeine Use: daily - Recreational Drug Use Recreational Drug Use: No - Living Situation & Occupation Living situation: Reports: Single Occupation: Employed (Currently unemployed.) ED ROS GENERAL - Review of Systems Review Of Systems: Comprehensive ROS is negative, except as noted in HPI. ED EXAM, GENERAL - Physical Exam Exam: See Below (See dictation) Course - Vital Signs Last Recorded V/S: Last Vital Signs Temp 35.5 C 07/30/19 05:40 Pulse 112 H 07/30/19 06:48 Resp 18 07/30/19 06:48 BP 219/120 H 07/30/19 06:48 Pulse Ox 98 07/30/19 06:48 - Orders/Labs/Meds Orders: Active Orders 24 hr Category Date Time Status Patient Status [ADT] Stat ADT 07/30/19 06:53 Ordered Sodium Chloride 0.9% [Saline Flush] Med 07/30/19 05:50 Active 10 ml FLUSH ASDIRECTED PRN Sodium Chloride 0.9% [Saline Flush] Med 07/30/19 05:50 Active 2.5 ml FLUSH ASDIRECTED PRN Saline Lock Insert [OM.PC] Stat Ot 07/30/19 05:49 Ordered Medication Orders Sodium Chloride (Saline Flush) 10 ml FLUSH ASDIRECTED PRN PRN Reason: Keep Vein Open Last Admin: 07/30/19 06:08 Dose: 10 ml Sodium Chloride (Saline Flush) 2.5 ml FLUSH ASDIRECTED PRN PRN Reason: Keep Vein Open Last Admin: 07/30/19 06:08 Dose: 2.5 ml Labs: Laboratory Tests 07/30/19 07/30/19 07/30/19 Range/Units 05:40 05:40 05:40 WBC 10.69 (4.0-11.0) K/uL RBC 5.16 (4.50-5.90) M/uL Hgb 11.2 L (13.0-17.0) g/dL Hct 34.8 L (38.0-50.0) % MCV 67.4 L (80.0-98.0) fL MCH 21.7 L (27.0-32.0) pg MCHC 32.2 (31.0-37.0) g/dL RDW Std Deviation 39.5 (28.0-62.0) fl RDW Coeff of Dania 16 H (11.0-15.0) % Plt Count 253 (150-400) K/uL Neut % (Auto) 67.7 (48.0-80.0) % Lymph % (Auto) 18.9 (16.0-40.0) % [place] % (Auto) 12.3 (0.0-15.0) % Eos % (Auto) 0.6 (0.0-7.0) % Baso % (Auto) 0.5 (0.0-1.5) % Neut # (Auto) 7.2 H (1.4-5.7) K/uL Lymph # (Auto) 2.0 (0.6-2.4) K/uL [place] # (Auto) 1.3 H (0.0-0.8) K/uL Eos # (Auto) 0.1 (0.0-0.7) K/uL Baso # (Auto) 0.1 (0.0-0.1) K/uL Nucleated RBC % 0.0 /100WBC Nucleated RBCs # 0 K/uL INR 0.90 Sodium 140 (136-148) mmol/L Potassium 4.4 (3.5-5.1) mmol/L Chloride 106 (98-107) mmol/L Carbon Dioxide 22.0 (21.0-32.0) mmol/L BUN 30 H (7.0-18.0) mg/dL Creatinine 2.4 H (0.8-1.3) mg/dL Est Cr Clr Drug Dosing TNP Estimated GFR (MDRD) 38.0 ml/min Glucose 258 H (74-106) mg/dL POC Glucose (60-110) mg/dL Hemoglobin A1c (4.5-6.2) % Calcium 9.0 (8.5-10.1) mg/dL Total Bilirubin 0.3 (0.2-1.0) mg/dL AST 42 H (15-37) IU/L ALT 41 (14-63) IU/L Alkaline Phosphatase 118 H (46-116) U/L Total Protein 7.2 (6.4-8.2) g/dL Albumin 3.0 L (3.4-5.0) g/dL Globulin 4.2 H (2.6-4.0) g/dL Albumin/Globulin Ratio 0.7 L (0.9-1.6) Amylase 68 (25-115) U/L Lipase 46 L (73-393) U/L Urine Color Urine Appearance Urine pH (5.0-8.0) Ur Specific [place] (1.001-1.035) Urine Protein (NEGATIVE) mg/dL Urine Glucose (UA) (NEGATIVE) mg/dL Urine Ketones (NEGATIVE) mg/dL Urine Occult Blood (NEGATIVE) Urine Nitrite (NEGATIVE) Urine Bilirubin (NEGATIVE) Urine Urobilinogen (<2.0) EU/dL Ur Leukocyte Esterase (NEGATIVE) Urine RBC (0-2/HPF) Urine WBC (0-5/HPF) Ur Epithelial Cells (NONE-FEW) Urine Bacteria (NEGATIVE) Urine Opiates Screen (NEGATIVE) Ur Oxycodone Screen (NEGATIVE) Urine Methadone Screen (NEGATIVE) Ur Barbiturates Screen (NEGATIVE) Ur Phencyclidine Scrn (NEGATIVE) Ur Amphetamine Screen (NEGATIVE) U Methamphetamines Scrn (NEGATIVE) U Benzodiazepines Scrn (NEGATIVE) U Cocaine Metab Screen (NEGATIVE) U Marijuana (THC) Screen (NEGATIVE) Ketones (NEG) 07/30/19 07/30/19 07/30/19 Range/Units 05:40 05:40 05:48 WBC (4.0-11.0) K/uL RBC (4.50-5.90) M/uL Hgb (13.0-17.0) g/dL Hct (38.0-50.0) % MCV (80.0-98.0) fL MCH (27.0-32.0) pg MCHC (31.0-37.0) g/dL RDW Std Deviation (28.0-62.0) fl RDW Coeff of Dania (11.0-15.0) % Plt Count (150-400) K/uL Neut % (Auto) (48.0-80.0) % Lymph % (Auto) (16.0-40.0) % [place] % (Auto) (0.0-15.0) % Eos % (Auto) (0.0-7.0) % Baso % (Auto) (0.0-1.5) % Neut # (Auto) (1.4-5.7) K/uL Lymph # (Auto) (0.6-2.4) K/uL [place] # (Auto) (0.0-0.8) K/uL Eos # (Auto) (0.0-0.7) K/uL Baso # (Auto) (0.0-0.1) K/uL Nucleated RBC % /100WBC Nucleated RBCs # K/uL INR Sodium (136-148) mmol/L Potassium (3.5-5.1) mmol/L Chloride (98-107) mmol/L Carbon Dioxide (21.0-32.0) mmol/L BUN (7.0-18.0) mg/dL Creatinine (0.8-1.3) mg/dL Est Cr Clr Drug Dosing Estimated GFR (MDRD) ml/min Glucose (74-106) mg/dL POC Glucose 230 H (60-110) mg/dL Hemoglobin A1c 9.4 H (4.5-6.2) % Calcium (8.5-10.1) mg/dL Total Bilirubin (0.2-1.0) mg/dL AST (15-37) IU/L ALT (14-63) IU/L Alkaline Phosphatase (46-116) U/L Total Protein (6.4-8.2) g/dL Albumin (3.4-5.0) g/dL Globulin (2.6-4.0) g/dL Albumin/Globulin Ratio (0.9-1.6) Amylase (25-115) U/L Lipase (73-393) U/L Urine Color Urine Appearance Urine pH (5.0-8.0) Ur Specific [place] (1.001-1.035) Urine Protein (NEGATIVE) mg/dL Urine Glucose (UA) (NEGATIVE) mg/dL Urine Ketones (NEGATIVE) mg/dL Urine Occult Blood (NEGATIVE) Urine Nitrite (NEGATIVE) Urine Bilirubin (NEGATIVE) Urine Urobilinogen (<2.0) EU/dL Ur Leukocyte Esterase (NEGATIVE) Urine RBC (0-2/HPF) Urine WBC (0-5/HPF) Ur Epithelial Cells (NONE-FEW) Urine Bacteria (NEGATIVE) Urine Opiates Screen (NEGATIVE) Ur Oxycodone Screen (NEGATIVE) Urine Methadone Screen (NEGATIVE) Ur Barbiturates Screen (NEGATIVE) Ur Phencyclidine Scrn (NEGATIVE) Ur Amphetamine Screen (NEGATIVE) U Methamphetamines Scrn (NEGATIVE) U Benzodiazepines Scrn (NEGATIVE) U Cocaine Metab Screen (NEGATIVE) U Marijuana (THC) Screen (NEGATIVE) Ketones NEGATIVE (NEG) 07/30/19 07/30/19 Range/Units 06:00 06:00 WBC (4.0-11.0) K/uL RBC (4.50-5.90) M/uL Hgb (13.0-17.0) g/dL Hct (38.0-50.0) % MCV (80.0-98.0) fL MCH (27.0-32.0) pg MCHC (31.0-37.0) g/dL RDW Std Deviation (28.0-62.0) fl RDW Coeff of Dania (11.0-15.0) % Plt Count (150-400) K/uL Neut % (Auto) (48.0-80.0) % Lymph % (Auto) (16.0-40.0) % [place] % (Auto) (0.0-15.0) % Eos % (Auto) (0.0-7.0) % Baso % (Auto) (0.0-1.5) % Neut # (Auto) (1.4-5.7) K/uL Lymph # (Auto) (0.6-2.4) K/uL [place] # (Auto) (0.0-0.8) K/uL Eos # (Auto) (0.0-0.7) K/uL Baso # (Auto) (0.0-0.1) K/uL Nucleated RBC % /100WBC Nucleated RBCs # K/uL INR Sodium (136-148) mmol/L Potassium (3.5-5.1) mmol/L Chloride (98-107) mmol/L Carbon Dioxide (21.0-32.0) mmol/L BUN (7.0-18.0) mg/dL Creatinine (0.8-1.3) mg/dL Est Cr Clr Drug Dosing Estimated GFR (MDRD) ml/min Glucose (74-106) mg/dL POC Glucose (60-110) mg/dL Hemoglobin A1c (4.5-6.2) % Calcium (8.5-10.1) mg/dL Total Bilirubin (0.2-1.0) mg/dL AST (15-37) IU/L ALT (14-63) IU/L Alkaline Phosphatase (46-116) U/L Total Protein (6.4-8.2) g/dL Albumin (3.4-5.0) g/dL Globulin (2.6-4.0) g/dL Albumin/Globulin Ratio (0.9-1.6) Amylase (25-115) U/L Lipase (73-393) U/L Urine Color YELLOW Urine Appearance SLT CLOUDY Urine pH 7.0 (5.0-8.0) Ur Specific [place] 1.020 (1.001-1.035) Urine Protein >=300 H (NEGATIVE) mg/dL Urine Glucose (UA) 500 H (NEGATIVE) mg/dL Urine Ketones NEGATIVE (NEGATIVE) mg/dL Urine Occult Blood MODERATE H (NEGATIVE) Urine Nitrite NEGATIVE (NEGATIVE) Urine Bilirubin NEGATIVE (NEGATIVE) Urine Urobilinogen 0.2 (<2.0) EU/dL Ur Leukocyte Esterase NEGATIVE (NEGATIVE) Urine RBC 7-10 (0-2/HPF) Urine WBC 0-1 (0-5/HPF) Ur Epithelial Cells OCCASIONAL (NONE-FEW) Urine Bacteria RARE (NEGATIVE) Urine Opiates Screen NEGATIVE (NEGATIVE) Ur Oxycodone Screen NEGATIVE (NEGATIVE) Urine Methadone Screen NEGATIVE (NEGATIVE) Ur Barbiturates Screen NEGATIVE (NEGATIVE) Ur Phencyclidine Scrn NEGATIVE (NEGATIVE) Ur Amphetamine Screen NEGATIVE (NEGATIVE) U Methamphetamines Scrn NEGATIVE (NEGATIVE) U Benzodiazepines Scrn NEGATIVE (NEGATIVE) U Cocaine Metab Screen NEGATIVE (NEGATIVE) U Marijuana (THC) Screen POSITIVE (NEGATIVE) Ketones (NEG) Meds: Medications Generic Name Dose Route Start Last Admin Trade Name Freq PRN Reason Stop Dose Admin Sodium Chloride 10 ml 07/30/19 05:50 07/30/19 06:08 Saline Flush FLUSH 10 ml ASDIRECTED PRN Administration Keep Vein Open Sodium Chloride 2.5 ml 07/30/19 05:50 07/30/19 06:08 Saline Flush FLUSH 2.5 ml ASDIRECTED PRN Administration Keep Vein Open Discontinued Medications Generic Name Dose Route Start Last Admin Trade Name Freq PRN Reason Stop Dose Admin Diphenhydramine HCl 50 mg 07/30/19 05:50 07/30/19 06:06 Benadryl IVPUSH 07/30/19 05:51 50 mg ONETIME ONE Administration Hydralazine HCl 10 mg 07/30/19 06:19 07/30/19 06:25 Apresoline IVPUSH 07/30/19 06:20 10 mg ONETIME ONE Administration Sodium Chloride 1,000 mls @ 999 mls/hr 07/30/19 05:50 07/30/19 06:08 Normal Saline IV 07/30/19 06:50 999 mls/hr STAT ONE Administration Lorazepam 1 mg 07/30/19 05:50 07/30/19 06:07 Ativan IVPUSH 07/30/19 05:51 1 mg ONETIME ONE Administration Metoclopramide HCl 10 mg 07/30/19 05:50 07/30/19 06:05 Reglan IV 07/30/19 05:51 10 mg ONETIME ONE Administration Pantoprazole Sodium 80 mg 07/30/19 05:52 07/30/19 06:07 Protonix Iv IVPUSH 07/30/19 05:53 80 mg .BOLUS ONE Administration Departure - Departure Time of Disposition: 06:55 Disposition: Refer to Observation Condition: Fair Clinical Impression: Intractable vomiting, Poorly-controlled hypertension - Discharge Information Forms: ED Department Discharge - My Orders Last 24 Hours: My Active Orders 07/30/19 05:49 Saline Lock Insert [OM.PC] Stat 07/30/19 05:50 Sodium Chloride 0.9% [Saline Flush] 10 ml FLUSH ASDIRECTED PRN Sodium Chloride 0.9% [Saline Flush] 2.5 ml FLUSH ASDIRECTED PRN 07/30/19 06:53 Patient Status [ADT] Stat - Assessment/Plan Last 24 Hours: My Active Orders 07/30/19 05:49 Saline Lock Insert [OM.PC] Stat 07/30/19 05:50 Sodium Chloride 0.9% [Saline Flush] 10 ml FLUSH ASDIRECTED PRN Sodium Chloride 0.9% [Saline Flush] 2.5 ml FLUSH ASDIRECTED PRN 07/30/19 06:53 Patient Status [ADT] Stat
[2019-07-30] MEDS ORDERED: hydrALAZINE 20 MG/ML SDV IVPUSH ONE (06:19)
[2019-07-30 06:22] LABS: BLOOD UREA NITROGEN,BUN 30 mg/dL (7.0-18.0); CHLORIDE,CL 106 mmol/L (98-107); GLUCOSE RANDOM 258 mg/dL (74-106); LIPASE 46 U/L (73-393); POTASSIUM,K 4.4 mmol/L (3.5-5.1); SODIUM,NA 140 mmol/L (136-148)
[2019-07-30 06:28] LABS: HEMOGLOBIN A1C 9.4 % (4.5-6.2)
--- NOTE | 2019-07-30 06:48 | CR ---
INDICATION: abdomen pain and vomiting TECHNIQUE: Abdomen/Pelvis radiograph 3 views COMPARISON: 06/30/19 FINDINGS: Bowel: The bowel gas pattern is normal without evidence of bowel obstruction but the paucity of bowel gas limits the evaluation. Soft tissue: No evidence of pneumoperitoneum present. No suspicious calcifications noted. Bone: Unremarkable for age. IMPRESSION: 1. Unremarkable appearance of the visualized abdomen. Dictated by: Josh Vick MD @ 07/30/2019 06:47:04 (Electronically Signed)
[2019-07-30] MEDS ORDERED: Acetaminophen 325 MG Tab PO PRN (07:26)
[2019-07-30] MEDS ORDERED: Ondansetron 4 MG Tab.DIS PO PRN (07:26)
[2019-07-30] MEDS ORDERED: Acetaminophen/HYDROcodone 325-5 MG Tab PO PRN (07:26)
[2019-07-30] MEDS ORDERED: Enoxaparin 40 MG/0.4 ML Syringe SUBCUT SCH (07:30)
[2019-07-30] MEDS ORDERED: Sodium Chloride 0.9% 1,000 ML IV SCH (07:30)
--- NOTE | 2019-07-30 07:55 | PCM.HP.2 ---
<Sanjay Valdes - Last Filed: 07/30/19 14:49> H&P History of Present Illness - General Date of Service: 07/30/19 Admit Problem/Dx: Admission Diagnosis/Problem Admission Diagnosis/Problem Intractable vomiting - History of Present Illness Initial Comments - Free Text/Narative: 34 y/o male with history of diabetes type 2, hypertension who presented to the ER complaining of nausea and hematemesis. He states that symptoms started yesterday and hat he has not been able to eat due to nausea, vomiting. Has been complaining of abdominal pain. He denies any bloody stools. He states he is constipated. Denies any headache, dyspnea, chest pain, dysuria, diarrhea, blood stool. In the ER, Hg 11 and Cr 2.4. He was bolused with 2 L NS. He was admitted for suspected hematemesis, intractable vomiting and abdominal pain. In the ER, he was noted to be hypertensive SBP 220's. He was given 1 dose hydralazine 10 mg IV. When I evaluated the patient in the ER, the patient was standing in no acute distress and when I entered he started complaining of abdominal pain and emesis. Abdomen Pain Score (Numeric/FACES): 9 - Related Data Allergies/Adverse Reactions: Allergies Allergy/AdvReac Type Severity Reaction Status Date / Time shrimp Allergy Severe Swelling Verified 07/30/19 11:10 iodine Allergy Unknown Anaphylactic Verified 07/30/19 11:10 Shock Penicillins Allergy Unknown Anaphylactic Verified 07/30/19 11:10 Shock shellfish derived Allergy Anaphylactic Verified 07/30/19 11:10 Shock gluten Allergy Unknown Muscle Uncoded 07/30/19 11:10 Aches Home Medications: Home Meds Doxazosin [Cardura] 4 mg PO BEDTIME 09/25/17 [History] Torsemide 20 mg PO DAILY 09/25/17 [History] amLODIPine Besylate [Amlodipine Besylate] 10 mg PO BEDTIME 09/25/17 [History] Ferrous Sulfate 324 mg PO DAILY 01/20/18 [History] Insulin Glarg,Human.Rec.Analog [Lantus Solostar] 35 units SUBCUT BEDTIME [History] Insulin Aspart [NovoLOG] 0 unit SUBCUT ASDIRECTED PRN 05/23/18 [History] Spironolactone [Aldactone] 25 mg PO BID 12/14/18 [History] hydroCHLOROthiazide [Hydrochlorothiazide] 25 mg PO DAILY 12/14/18 [History] Aspirin [Halfprin] 81 mg PO DAILY #30 tab.ec 12/15/18 [Rx] Sucralfate [Carafate] 1 gm PO QIDACANDBED #120 ml 04/05/19 [Rx] Metoclopramide HCl [Reglan] 10 mg PO TID PRN #20 tablet 06/17/19 [Rx] Metoprolol Succinate 2 tab PO DAILY 06/17/19 [History] Pantoprazole Sodium [Protonix] 40 mg PO DAILY 06/17/19 [History] atorvaSTATin [Lipitor] 80 mg PO BEDTIME 06/17/19 [History] Enalapril [Vasotec] 20 mg PO BEDTIME tablet 08/01/19 [Rx] Past Medical History - Past Health History Medical/Surgical History: Denies Medical/Surgical History HEENT History: Reports: Impaired Vision Other HEENT History: blind right eye Cardiovascular History: Reports: Hypertension Respiratory History: Reports: None Gastrointestinal History: Reports: Gastritis, GERD, Hiatal Hernia, Other (See Below) Other Gastrointestinal History: h/o gastric ulcers, h/o hiatal hernia; gastroparesis Genitourinary History: Reports: Chronic Renal Insuffiency, Diabetic Nephropathy Musculoskeletal History: Reports: Amputation Neurological History: Reports: Neuropathy, Peripheral Other Neuro History: stroke 3 months ago Psychiatric History: Reports: Anxiety Endocrine/Metabolic History: Reports: Diabetes, Type I Other Endocrine/Metabolic History: brittle diabetic. 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 - Past Surgical History Head Surgeries/Procedures: Reports: None Social & Family History - Family History Family Medical History: Noncontributory Cardiac: Reports: High Cholesterol, Hypertension OBGYN: Reports: Neurological: Reports: None - Tobacco Use Smoking Status *Q: Never Smoker - Caffeine Use Caffeine Use: Reports: None Other Caffeine Use: daily - Recreational Drug Use Recreational Drug Use: No - Living Situation & Occupation Living situation: Reports: Single Occupation: Employed (Currently unemployed.) H&P Review of Systems - Review of Systems: Review Of Systems: Comprehensive ROS is negative, except as noted in HPI. Exam - Exam Exam: See Below - Vital Signs Vital Signs: Last Vital Signs Temp 35.5 C 07/30/19 05:40 Pulse 112 H 07/30/19 06:48 Resp 18 07/30/19 06:48 BP 219/120 H 07/30/19 06:48 Pulse Ox 98 07/30/19 06:48 - Exam General: Alert, Oriented, Mild Distress Lungs: Clear to Auscultation. No: Crackles, Wheezing Cardiovascular: Regular Rhythm, Tachycardia GI/Abdominal Exam: Normal Bowel Sounds, Soft, Non-Tender, No Distention Extremities: Other (right BKA) Skin: Warm, Dry - Patient Data Lab Results Last 24 hrs: Laboratory Results - last 24 hr 07/30/19 07/30/19 07/30/19 Range/Units 05:40 05:40 05:40 WBC 10.69 (4.0-11.0) K/uL RBC 5.16 (4.50-5.90) M/uL Hgb 11.2 L (13.0-17.0) g/dL Hct 34.8 L (38.0-50.0) % MCV 67.4 L (80.0-98.0) fL MCH 21.7 L (27.0-32.0) pg MCHC 32.2 (31.0-37.0) g/dL RDW Std Deviation 39.5 (28.0-62.0) fl RDW Coeff of Dania 16 H (11.0-15.0) % Plt Count 253 (150-400) K/uL Neut % (Auto) 67.7 (48.0-80.0) % Lymph % (Auto) 18.9 (16.0-40.0) % Tift % (Auto) 12.3 (0.0-15.0) % Eos % (Auto) 0.6 (0.0-7.0) % Baso % (Auto) 0.5 (0.0-1.5) % Neut # (Auto) 7.2 H (1.4-5.7) K/uL Lymph # (Auto) 2.0 (0.6-2.4) K/uL Tift # (Auto) 1.3 H (0.0-0.8) K/uL Eos # (Auto) 0.1 (0.0-0.7) K/uL Baso # (Auto) 0.1 (0.0-0.1) K/uL Nucleated RBC % 0.0 /100WBC Nucleated RBCs # 0 K/uL INR 0.90 Sodium 140 (136-148) mmol/L Potassium 4.4 (3.5-5.1) mmol/L Chloride 106 (98-107) mmol/L Carbon Dioxide 22.0 (21.0-32.0) mmol/L BUN 30 H (7.0-18.0) mg/dL Creatinine 2.4 H (0.8-1.3) mg/dL Est Cr Clr Drug Dosing TNP Estimated GFR (MDRD) 38.0 ml/min Glucose 258 H (74-106) mg/dL POC Glucose (60-110) mg/dL Hemoglobin A1c (4.5-6.2) % Calcium 9.0 (8.5-10.1) mg/dL Total Bilirubin 0.3 (0.2-1.0) mg/dL AST 42 H (15-37) IU/L ALT 41 (14-63) IU/L Alkaline Phosphatase 118 H (46-116) U/L Total Protein 7.2 (6.4-8.2) g/dL Albumin 3.0 L (3.4-5.0) g/dL Globulin 4.2 H (2.6-4.0) g/dL Albumin/Globulin Ratio 0.7 L (0.9-1.6) Amylase 68 (25-115) U/L Lipase 46 L (73-393) U/L Urine Color Urine Appearance Urine pH (5.0-8.0) Ur Specific [place] (1.001-1.035) Urine Protein (NEGATIVE) mg/dL Urine Glucose (UA) (NEGATIVE) mg/dL Urine Ketones (NEGATIVE) mg/dL Urine Occult Blood (NEGATIVE) Urine Nitrite (NEGATIVE) Urine Bilirubin (NEGATIVE) Urine Urobilinogen (<2.0) EU/dL Ur Leukocyte Esterase (NEGATIVE) Urine RBC (0-2/HPF) Urine WBC (0-5/HPF) Ur Epithelial Cells (NONE-FEW) Urine Bacteria (NEGATIVE) Urine Opiates Screen (NEGATIVE) Ur Oxycodone Screen (NEGATIVE) Urine Methadone Screen (NEGATIVE) Ur Barbiturates Screen (NEGATIVE) Ur Phencyclidine Scrn (NEGATIVE) Ur Amphetamine Screen (NEGATIVE) U Methamphetamines Scrn (NEGATIVE) U Benzodiazepines Scrn (NEGATIVE) U Cocaine Metab Screen (NEGATIVE) U Marijuana (THC) Screen (NEGATIVE) Ketones (NEG) 07/30/19 07/30/19 07/30/19 Range/Units 05:40 05:40 05:48 WBC (4.0-11.0) K/uL RBC (4.50-5.90) M/uL Hgb (13.0-17.0) g/dL Hct (38.0-50.0) % MCV (80.0-98.0) fL MCH (27.0-32.0) pg MCHC (31.0-37.0) g/dL RDW Std Deviation (28.0-62.0) fl RDW Coeff of Dania (11.0-15.0) % Plt Count (150-400) K/uL Neut % (Auto) (48.0-80.0) % Lymph % (Auto) (16.0-40.0) % Tift % (Auto) (0.0-15.0) % Eos % (Auto) (0.0-7.0) % Baso % (Auto) (0.0-1.5) % Neut # (Auto) (1.4-5.7) K/uL Lymph # (Auto) (0.6-2.4) K/uL Tift # (Auto) (0.0-0.8) K/uL Eos # (Auto) (0.0-0.7) K/uL Baso # (Auto) (0.0-0.1) K/uL Nucleated RBC % /100WBC Nucleated RBCs # K/uL INR Sodium (136-148) mmol/L Potassium (3.5-5.1) mmol/L Chloride (98-107) mmol/L Carbon Dioxide (21.0-32.0) mmol/L BUN (7.0-18.0) mg/dL Creatinine (0.8-1.3) mg/dL Est Cr Clr Drug Dosing Estimated GFR (MDRD) ml/min Glucose (74-106) mg/dL POC Glucose 230 H (60-110) mg/dL Hemoglobin A1c 9.4 H (4.5-6.2) % Calcium (8.5-10.1) mg/dL Total Bilirubin (0.2-1.0) mg/dL AST (15-37) IU/L ALT (14-63) IU/L Alkaline Phosphatase (46-116) U/L Total Protein (6.4-8.2) g/dL Albumin (3.4-5.0) g/dL Globulin (2.6-4.0) g/dL Albumin/Globulin Ratio (0.9-1.6) Amylase (25-115) U/L Lipase (73-393) U/L Urine Color Urine Appearance Urine pH (5.0-8.0) Ur Specific [place] (1.001-1.035) Urine Protein (NEGATIVE) mg/dL Urine Glucose (UA) (NEGATIVE) mg/dL Urine Ketones (NEGATIVE) mg/dL Urine Occult Blood (NEGATIVE) Urine Nitrite (NEGATIVE) Urine Bilirubin (NEGATIVE) Urine Urobilinogen (<2.0) EU/dL Ur Leukocyte Esterase (NEGATIVE) Urine RBC (0-2/HPF) Urine WBC (0-5/HPF) Ur Epithelial Cells (NONE-FEW) Urine Bacteria (NEGATIVE) Urine Opiates Screen (NEGATIVE) Ur Oxycodone Screen (NEGATIVE) Urine Methadone Screen (NEGATIVE) Ur Barbiturates Screen (NEGATIVE) Ur Phencyclidine Scrn (NEGATIVE) Ur Amphetamine Screen (NEGATIVE) U Methamphetamines Scrn (NEGATIVE) U Benzodiazepines Scrn (NEGATIVE) U Cocaine Metab Screen (NEGATIVE) U Marijuana (THC) Screen (NEGATIVE) Ketones NEGATIVE (NEG) 07/30/19 07/30/19 Range/Units 06:00 06:00 WBC (4.0-11.0) K/uL RBC (4.50-5.90) M/uL Hgb (13.0-17.0) g/dL Hct (38.0-50.0) % MCV (80.0-98.0) fL MCH (27.0-32.0) pg MCHC (31.0-37.0) g/dL RDW Std Deviation (28.0-62.0) fl RDW Coeff of Dania (11.0-15.0) % Plt Count (150-400) K/uL Neut % (Auto) (48.0-80.0) % Lymph % (Auto) (16.0-40.0) % Tift % (Auto) (0.0-15.0) % Eos % (Auto) (0.0-7.0) % Baso % (Auto) (0.0-1.5) % Neut # (Auto) (1.4-5.7) K/uL Lymph # (Auto) (0.6-2.4) K/uL Tift # (Auto) (0.0-0.8) K/uL Eos # (Auto) (0.0-0.7) K/uL Baso # (Auto) (0.0-0.1) K/uL Nucleated RBC % /100WBC Nucleated RBCs # K/uL INR Sodium (136-148) mmol/L Potassium (3.5-5.1) mmol/L Chloride (98-107) mmol/L Carbon Dioxide (21.0-32.0) mmol/L BUN (7.0-18.0) mg/dL Creatinine (0.8-1.3) mg/dL Est Cr Clr Drug Dosing Estimated GFR (MDRD) ml/min Glucose (74-106) mg/dL POC Glucose (60-110) mg/dL Hemoglobin A1c (4.5-6.2) % Calcium (8.5-10.1) mg/dL Total Bilirubin (0.2-1.0) mg/dL AST (15-37) IU/L ALT (14-63) IU/L Alkaline Phosphatase (46-116) U/L Total Protein (6.4-8.2) g/dL Albumin (3.4-5.0) g/dL Globulin (2.6-4.0) g/dL Albumin/Globulin Ratio (0.9-1.6) Amylase (25-115) U/L Lipase (73-393) U/L Urine Color YELLOW Urine Appearance SLT CLOUDY Urine pH 7.0 (5.0-8.0) Ur Specific [place] 1.020 (1.001-1.035) Urine Protein >=300 H (NEGATIVE) mg/dL Urine Glucose (UA) 500 H (NEGATIVE) mg/dL Urine Ketones NEGATIVE (NEGATIVE) mg/dL Urine Occult Blood MODERATE H (NEGATIVE) Urine Nitrite NEGATIVE (NEGATIVE) Urine Bilirubin NEGATIVE (NEGATIVE) Urine Urobilinogen 0.2 (<2.0) EU/dL Ur Leukocyte Esterase NEGATIVE (NEGATIVE) Urine RBC 7-10 (0-2/HPF) Urine WBC 0-1 (0-5/HPF) Ur Epithelial Cells OCCASIONAL (NONE-FEW) Urine Bacteria RARE (NEGATIVE) Urine Opiates Screen NEGATIVE (NEGATIVE) Ur Oxycodone Screen NEGATIVE (NEGATIVE) Urine Methadone Screen NEGATIVE (NEGATIVE) Ur Barbiturates Screen NEGATIVE (NEGATIVE) Ur Phencyclidine Scrn NEGATIVE (NEGATIVE) Ur Amphetamine Screen NEGATIVE (NEGATIVE) U Methamphetamines Scrn NEGATIVE (NEGATIVE) U Benzodiazepines Scrn NEGATIVE (NEGATIVE) U Cocaine Metab Screen NEGATIVE (NEGATIVE) U Marijuana (THC) Screen POSITIVE (NEGATIVE) Ketones (NEG) Result Diagrams: 07/30/19 13:40 07/30/19 05:40 Problem List Initiated/Reviewed/Updated: Yes Orders Last 24hrs: Active Orders 24 hr Category Date Time Status Patient Status [ADT] Stat ADT 07/30/19 06:53 Active Blood Glucose Check, Bedside [RC] QIDACANDBED Care 07/30/19 07:26 Active Intake and Output [RC] QSHIFT Care 07/30/19 07:26 Active Oxygen Therapy [RC] PRN Care 07/30/19 07:26 Active Up With Assistance [RC] ASDIRECTED Care 07/30/19 07:26 Active VTE/DVT Education [RC] PER UNIT ROUTINE Care 07/30/19 07:26 Active Vital Signs [RC] Q4H Care 07/30/19 07:26 Active NPO Now [Nothing per Oral Now Diet] [DIET] Diet 07/30/19 Lunch Active Abdomen Pelvis wo Cont [CT] Routine Exams 07/30/19 07:54 Ordered CBC WITH AUTO DIFF [HEME] AM Lab 07/31/19 05:11 Ordered CBC WITH AUTO DIFF [HEME] AM Lab 08/01/19 05:11 Ordered COMPREHENSIVE METABOLIC PN,CMP [CHEM] AM Lab 07/31/19 05:11 Ordered COMPREHENSIVE METABOLIC PN,CMP [CHEM] AM Lab 08/01/19 05:11 Ordered FERRITIN [CHEM] Routine Lab 07/30/19 05:40 Received HEMOGLOBIN/HEMATOCRIT,HH [HEME] Q8H Lab 07/30/19 13:00 Ordered HEMOGLOBIN/HEMATOCRIT,HH [HEME] Q8H Lab 07/30/19 21:00 Ordered HEMOGLOBIN/HEMATOCRIT,HH [HEME] Q8H Lab 07/31/19 05:00 Ordered Hemoccult [OCCULT BLOOD DIAGNOSTIC] [OP] Routine Lab 07/30/19 07:47 Ordered IRON/TIBC [CHEM] Routine Lab 07/30/19 05:40 Received LIPID PANEL [CHEM] Routine Lab 07/30/19 05:40 Received TSH [CHEM] Routine Lab 07/30/19 05:40 Received Insulin Aspart [NovoLOG] Med 07/30/19 07:30 Active See Protocol SUBCUT TIDAC Metoclopramide [Reglan] Med 07/30/19 11:00 Active 5 mg IVPUSH Q6H Ondansetron [Zofran ODT] Med 07/30/19 07:26 Active 4 mg PO Q4H PRN Ondansetron [Zofran] Med 07/30/19 07:26 Active 4 mg IVPUSH Q4H PRN Pantoprazole [ProTONIX IV] 40 mg Med 07/30/19 20:00 Active Sodium Chloride 0.9% [Normal Saline] 10 ml IV Q12H Sodium Chloride 0.9% [Normal Saline] 1,000 ml Med 07/30/19 07:30 Active IV BOLUS Sodium Chloride 0.9% [Saline Flush] Med 07/30/19 05:50 Active 10 ml FLUSH ASDIRECTED PRN Sodium Chloride 0.9% [Saline Flush] Med 07/30/19 05:50 Active 2.5 ml FLUSH ASDIRECTED PRN Saline Lock Insert [OM.PC] Stat Oth 07/30/19 05:49 Ordered Resuscitation Status Routine Resus Stat 07/30/19 07:26 Ordered Medication Orders Sodium Chloride (Normal Saline) 1,000 mls @ 999 mls/hr IV BOLUS MICHAEL Stop: 07/30/19 08:31 Pantoprazole Sodium 40 mg/ (Sodium Chloride) 10 mls @ 300 mls/hr IV Q12H MICHAEL Insulin Aspart (Novolog) 0 unit SUBCUT TIDAC MICHAEL; Protocol Metoclopramide HCl (Reglan) 5 mg IVPUSH Q6H MICHAEL Ondansetron HCl (Zofran Odt) 4 mg PO Q4H PRN PRN Reason: nausea, able to take PO Ondansetron HCl (Zofran) 4 mg IVPUSH Q4H PRN PRN Reason: Nausea Sodium Chloride (Saline Flush) 10 ml FLUSH ASDIRECTED PRN PRN Reason: Keep Vein Open Last Admin: 07/30/19 06:08 Dose: 10 ml Sodium Chloride (Saline Flush) 2.5 ml FLUSH ASDIRECTED PRN PRN Reason: Keep Vein Open Last Admin: 07/30/19 06:08 Dose: 2.5 ml Assessment/Plan Comment:: A: 1. Hypertensive emergency 2. Suspected hematemesis 3. Intractable nausea, abdominal pain 4. Medical non-compliance 5. PMH DM2, Hypertension P: Administered ativan and benadryl since patient is out of control and screaming. Will start nicardapine drip if pressures still elevated. For his suspected hematemesis, there may be a component of dilution effect on top of gastritis. Checking H/H q8H. Protonix 40 mg IV Q12H. NPO except ice chips. If Hg still dropping will need to consider transferring patient. Accuchecks TIDAC with ISS. dispo: 1-2 days <Gini Means - Last Filed: 08/01/19 19:33> H&P History of Present Illness - General Admit Problem/Dx: Admission Diagnosis/Problem Admission Diagnosis/Problem Intractable vomiting Exam - Vital Signs Vital Signs: Last Vital Signs Temp 37.0 C 08/01/19 15:00 Pulse 113 H 08/01/19 10:53 Resp 16 08/01/19 16:31 BP 141/98 H 08/01/19 16:31 Pulse Ox 97 08/01/19 15:00 - Patient Data Lab Results Last 24 hrs: Laboratory Results - last 24 hr 07/31/19 08/01/19 08/01/19 Range/Units 21:07 05:55 05:55 WBC 6.91 (4.0-11.0) K/uL RBC 4.62 (4.50-5.90) M/uL Hgb 9.8 L (13.0-17.0) g/dL Hct 31.2 L (38.0-50.0) % MCV 67.5 L (80.0-98.0) fL MCH 21.2 L (27.0-32.0) pg MCHC 31.4 (31.0-37.0) g/dL RDW Std Deviation 40.4 (28.0-62.0) fl RDW Coeff of Dania 16 H (11.0-15.0) % Plt Count 234 (150-400) K/uL MPV 10.40 (7.40-12.00) fL Neut % (Auto) 55.0 (48.0-80.0) % Lymph % (Auto) 33.4 (16.0-40.0) % Tift % (Auto) 10.9 (0.0-15.0) % Eos % (Auto) 0.3 (0.0-7.0) % Baso % (Auto) 0.4 (0.0-1.5) % Neut # (Auto) 3.8 (1.4-5.7) K/uL Lymph # (Auto) 2.3 (0.6-2.4) K/uL Tift # (Auto) 0.8 (0.0-0.8) K/uL Eos # (Auto) 0.0 (0.0-0.7) K/uL Baso # (Auto) 0.0 (0.0-0.1) K/uL Nucleated RBC % 0.0 /100WBC Nucleated RBCs # 0 K/uL Sodium 140 (136-148) mmol/L Potassium 3.9 (3.5-5.1) mmol/L Chloride 106 (98-107) mmol/L Carbon Dioxide 23.4 (21.0-32.0) mmol/L BUN 22 H (7.0-18.0) mg/dL Creatinine 2.0 H (0.8-1.3) mg/dL Est Cr Clr Drug Dosing 52.53 mL/min Estimated GFR (MDRD) 46.9 ml/min Glucose 206 H (74-106) mg/dL POC Glucose 211 H (60-110) mg/dL Calcium 7.7 L (8.5-10.1) mg/dL Total Bilirubin 0.2 (0.2-1.0) mg/dL AST 31 (15-37) IU/L ALT 26 (14-63) IU/L Alkaline Phosphatase 83 (46-116) U/L Total Protein 5.7 L (6.4-8.2) g/dL Albumin 2.2 L (3.4-5.0) g/dL Globulin 3.5 (2.6-4.0) g/dL Albumin/Globulin Ratio 0.6 L (0.9-1.6) 08/01/19 08/01/19 08/01/19 Range/Units 07:31 11:26 13:02 WBC (4.0-11.0) K/uL RBC (4.50-5.90) M/uL Hgb (13.0-17.0) g/dL Hct (38.0-50.0) % MCV (80.0-98.0) fL MCH (27.0-32.0) pg MCHC (31.0-37.0) g/dL RDW Std Deviation (28.0-62.0) fl RDW Coeff of Dania (11.0-15.0) % Plt Count (150-400) K/uL MPV (7.40-12.00) fL Neut % (Auto) (48.0-80.0) % Lymph % (Auto) (16.0-40.0) % Tift % (Auto) (0.0-15.0) % Eos % (Auto) (0.0-7.0) % Baso % (Auto) (0.0-1.5) % Neut # (Auto) (1.4-5.7) K/uL Lymph # (Auto) (0.6-2.4) K/uL Tift # (Auto) (0.0-0.8) K/uL Eos # (Auto) (0.0-0.7) K/uL Baso # (Auto) (0.0-0.1) K/uL Nucleated RBC % /100WBC Nucleated RBCs # K/uL Sodium (136-148) mmol/L Potassium (3.5-5.1) mmol/L Chloride (98-107) mmol/L Carbon Dioxide (21.0-32.0) mmol/L BUN (7.0-18.0) mg/dL Creatinine (0.8-1.3) mg/dL Est Cr Clr Drug Dosing mL/min Estimated GFR (MDRD) ml/min Glucose (74-106) mg/dL POC Glucose 181 H 186 H 208 H (60-110) mg/dL Calcium (8.5-10.1) mg/dL Total Bilirubin (0.2-1.0) mg/dL AST (15-37) IU/L ALT (14-63) IU/L Alkaline Phosphatase (46-116) U/L Total Protein (6.4-8.2) g/dL Albumin (3.4-5.0) g/dL Globulin (2.6-4.0) g/dL Albumin/Globulin Ratio (0.9-1.6) Result Diagrams: 08/01/19 05:55 08/01/19 05:55 Peter Results Last 24 hrs: Microbiology 08/01/19 10:20 Stool Occult Blood (PETER) - Final Stool / Feces NEGATIVE OCCULT BLOOD REFERENCE RANGE: NEGATIVE - Problem List (1) Hypertensive emergency SNOMED Code(s): 736914919038834 ICD Code: I16.1 - HYPERTENSIVE EMERGENCY Status: Acute (2) OTILIA (acute kidney injury) SNOMED Code(s): 78885095, 15683156 ICD Code: N17.9 - ACUTE KIDNEY FAILURE, UNSPECIFIED Status: Acute (3) Gastroparesis due to DM SNOMED Code(s): 894000381 ICD Code: E11.43 - TYPE 2 DIABETES W DIABETIC AUTONOMIC (POLY)NEUROPATHY; K31.84 - GASTROPARESIS Status: Acute (4) DKA (diabetic ketoacidoses) SNOMED Code(s): 146934152, 758929774 ICD Code: E13.10 - OTH DIABETES MELLITUS WITH KETOACIDOSIS WITHOUT COMA Status: Acute Qualifiers: Diabetes mellitus type: type 1 Diabetes mellitus complication detail: without coma Qualified Code(s): E10.10 - Type 1 diabetes mellitus with ketoacidosis without coma Orders Last 24hrs: Active Orders 24 hr Category Date Time Status Transfer Patient (Change bed) [ADT] Routine ADT 08/01/19 14:41 Ordered Ready for Discharge [RC] PER UNIT ROUTINE Care 08/01/19 16:40 Active Echo Comp wo Cont [US] Routine Exams 08/01/19 08:00 Taken VL Duplex Abd Pel Ret Ltd [US] Routine Exams 08/01/19 11:46 Ordered MISC TEST NG ONLY Routine Lab 08/01/19 13:40 Received Assessment/Plan Comment:: I performed a history and physical exam of the patient and discussed management with resident. I have reviewed the residents note and agree with documented findings and plan unless otherwise specified in my note
[2019-07-30] MEDS ORDERED: Morphine 2 MG/ML Syringe IVPUSH PRN (08:16)
--- NOTE | 2019-07-30 08:26 | CT ---
INDICATION: Abdominal pain assess for stones. TECHNIQUE: Noncontrast CT abdomen and pelvis. COMPARISON: CT abdomen and pelvis 04/23/2019. FINDINGS: Heart size is normal. No pericardial effusion. Patchy ground-glass atelectasis. No effusion. The unenhanced liver gallbladder spleen appears unremarkable. Small hiatal hernia. Adrenal glands are unremarkable. There is no renal calculi. Low-density lesion in the left inferior kidney incompletely assessed but could represent a cyst and is unchanged the prior study. There is no hydronephrosis seen. There maybe mild perinephric stranding bilaterally. No large perinephric fluid collections. Normal appendix. The bowel is unremarkable without obstruction. Urinary bladder is unremarkable. No suspicious bony lesions. Impression: 1. No renal calculi or hydronephrosis. Question very mild perinephric stranding bilaterally could be correlated clinically with possible UTI/pyelonephritis. Please note that all CT scans at this facility use dose modulation, iterative reconstruction, and/or weight-based dosing when appropriate to reduce radiation dose to as low as reasonably achievable. Dictated by Brigida Denson MD @ Jul 30 2019 8:11AM Signed by Dr. Brigida Denson @ Jul 30 2019 8:25AM
[2019-07-30] MEDS: Ondansetron 4 MG/2 ML SDV IVPUSH PRN ×2 (08:31→18:57)
[2019-07-30] MEDS: Insulin Aspart 100 Units/ML 3 ML Pen SUBCUT SCH ×2 (08:39→12:36)
[2019-07-30] MEDS ORDERED: Labetalol 100 MG/20 ML MDV IVPUSH ONE (10:02)
[2019-07-30] MEDS ORDERED: Labetalol 100 MG/20 ML MDV IV PRN (10:03)
[2019-07-30] MEDS: Metoclopramide 10 MG/2 ML SDV IVPUSH SCH ×3 (10:44→23:01)
[2019-07-30] MEDS ORDERED: niCARdipine/Normal Saline 20 MG/200 ML BAG IV SCH (11:45)
[2019-07-30] MEDS ORDERED: HYDROmorphone 1 MG/ML Syringe IVPUSH PRN (12:01)
[2019-07-30] MEDS ORDERED: Morphine 2 MG/ML Syringe IVPUSH ONE (12:03)
--- NOTE | 2019-07-30 14:48 | PN ---
THC Physician - Brief Progress [id number]/16/2019 14:25[facility] Danish Tavera, RAFAEL - ISIDORON (SHILOH) - MWN MONIKDAWOOD JONES SusanneDate of Service 07/30/2019 14:25HPI/Events of Note EICU admission note:34 year old AAM in NAD admitting from the floor to the ICU for monitoring .Patient is a 34 year old brittle diabetic with end organ damage Now with Marjiuana usage and vomitin g/nausea.Labs reviewedPatient seen on camera:HR 102, RR25, SP02 95%, BP 154/87EICU assessment:Cyclic vomiting/ Nausea ?? Secondary to MarijuanaUncontrolled blood pressuresDM1 - uncontrolledAnemia Hematu riaGastroparesis, secondary to diabetesCKDPVDEICU recs:Control Blood pressuresGlucose ControlGI treat ment with protonixNo dvt proph for now due to anemia, would do ambulation and scdPsych consult and in put.Agree with cardiene gttMonitor closely for painPan cultureReglan for gastroparesisSerial labsPlea se trend H & Hplease call as neededInterventions Major-Hypertension - evaluation and managementMinor- Communication with other healthcare providers and/or family, Routine modifications to care plan (e.g. PRN medications for pain, fever)Electronically Signed by: KRYSTEN SMITH) on 019 14:47
[2019-07-30] MEDS: HYDROmorphone 1 MG/ML Syringe IVPUSH PRN ×3 (16:02→23:02)
[2019-07-30] MEDS: Insulin Regular, Human 100 Units/ML 10 ML Vial SUBCUT SCH ×2 (18:08→18:20)
[2019-07-30] MEDS: Pantoprazole 40 MG in Sodium Chloride 0.9% 10 ML IV SCH (19:47)
[2019-07-30] MEDS ORDERED: diazePAM 5 MG/ML MDV IV ONE (19:47)
[2019-07-30] MEDS ORDERED: MVI, Adult with Vitamin K 10 ML, Thiamine 100 MG, Folic Acid 1 MG in Sodium Chloride 0.... IV ONE ×4 (19:48)
[2019-07-30 20:35] LABS: CARBON DIOXIDE,CO2 18.5 mmol/L (21.0-32.0); POTASSIUM,K 4.1 mmol/L (3.5-5.1)
[2019-07-31] MEDS ORDERED: Dextrose 5%-0.9% NaCl 1,000 ML IV SCH (00:45)
[2019-07-31] MEDS: Ondansetron 4 MG/2 ML SDV IVPUSH PRN (01:35)
[2019-07-31] MEDS: HYDROmorphone 1 MG/ML Syringe IVPUSH PRN ×6 (01:38→22:07)
[2019-07-31 01:39] LABS: CARBON DIOXIDE,CO2 22.8 mmol/L (21.0-32.0); POTASSIUM,K 3.9 mmol/L (3.5-5.1)
--- NOTE | 2019-07-31 02:23 | PN ---
THC Physician - Brief Progress ThacDIQEHHUXR66/17/2019 02:20[facility] raynaDanish, RAFAEL - BAHMAN (SHILOH) - DAWOOD LUNADate of Service 07/31/2019 02:20HPI/Events of Note eICU NotesEvents overnightAdjusted IVFNow glu controlled, AG closed, Bicarb normalStart Lantu s 10 unitsStop dripInsulin Aspart sliding scaleFollow Glu overnight and cover as neededInterventions Major-Hyperglycemia - active titration of insulin therapy
[2019-07-31] MEDS: Insulin Glargine,Human Rec. Analog 100 Units/ML 3 ML Pen SUBCUT SCH ×2 (02:35→10:04)
[2019-07-31] MEDS: Sodium Chloride 0.9% 1,000 ML IV SCH ×2 (02:35→09:26)
[2019-07-31] MEDS: Metoclopramide 10 MG/2 ML SDV IVPUSH SCH (03:59)
[2019-07-31] MEDS ORDERED: Metoclopramide 10 MG/2 ML SDV IVPUSH PRN (04:04)
[2019-07-31] MEDS: Insulin Aspart 100 Units/ML 3 ML Pen SUBCUT SCH ×4 (05:02→21:11)
[2019-07-31 06:37] LABS: CARBON DIOXIDE,CO2 23.1 mmol/L (21.0-32.0); POTASSIUM,K 4.2 mmol/L (3.5-5.1)
[2019-07-31] MEDS: Pantoprazole 40 MG in Sodium Chloride 0.9% 10 ML IV SCH ×2 (07:50→20:06)
[2019-07-31] MEDS ORDERED: LORazepam 2 MG/ML SDV IVPUSH ONE (08:56)
[2019-07-31] MEDS ORDERED: diphenhydrAMINE 50 MG/ML SDV IVPUSH ONE (08:56)
--- NOTE | 2019-07-31 09:40 | PN ---
THC Physician - Brief Progress TywjPEKPGRVSA22/17/2019 08:42[facility] Danish [place], [place] - MWN (SULEIMANN) - MWN MONIKDAWOOD JONESGuilhermeDate of Service 07/31/2019 08:42HPI/Events of Note eICU Progress [id number] admitted for DKA. History obtained primarily from review of EMR.Notable events: gap closed overnight, converted to subcutaneous lantus.Camera exam: Standing at foot of bed, with back to camera, Vitals monitor reviewed, HR 134Vitals: reviewedLabs: reviewed, OTILIA improvingRad iology: reviewedMeds: reviewedeICU Impression and Recommendations:Diabetic ketoacidosis, status post resolution and transition to subcutaneous insulinAnion gap closedSubcutaneous insulin therapy with gl ucose control target <180, suggest concomitant subcutaneous sliding scale protocol with titration of lantus based on ISS needsDiabetic dietDiabetes education per institutional protocolOn discharge recom mend close follow up with PCPReported history of hematemesis, with what appears to be stable hemoglob in overnightTachycardia, uncertain significance, in light of hypertensive urgency/emergency may not n ecessarily be reflective of volume depleted state, especially with improving creatinineAgree with BID protonixConsider empiric bolus of LR to assess effect on heart rateGI consult for endoscopy if patie nt has another episode of hematemesisHypertensive urgency/emergency, appears controlled on nicardipin e drip, etiology uncertain, especially given young age. Differential includes secondary hypertension, drug effect (ie recreational synthetic cathinone given negative UDS)24 hour goal of no more than 25% reduction in blood pressureAfter 24 hours of blood pressure control, recommend transition to oral re gimen (ie oral labetalol), with tapering and eventual discontinuation of IV therapyWould suggest to h old off on ELIANE-I/ARB until OTILIA resolved, although would be a good choice eventually given DM history. Hydralazine may not be optimal given concomitant tachycardia.Suggest initiation of work up for dotty harris hypertension - this can likely be pursued as an outpatient as long as patient's blood pressure c ontrolled on oral meds. If inpatient work up is initiated, would start with:plasma aldosterone and pl asma renin concentration, with confirmation testing (if PAC >10 and PRA <1 or PRC less than [place] it of normal) depending on availability at institution (ie fludrocortisone suppression, saline suppre ssion, or 24 hour urine aldosterone, sodium and creatinine)TSH, FT4, ionized calcium. Blood pressure testing in arms and legs to rule out coarctation of aorta. Plasma normetanephrines/metanephrines, [place] less likely to be useful given current need for nicardipineSleep study to rule out sleep apneaI f patient noted to have an unexpected rise in creatinine after initiation of ELIANE-I consider initiatio n of work up for vega-vascular hypertensionDVT and GI prophylaxis as appropriate.We are available to assist in further clarification, or implementation of any of the above recommendations if desired by primary service.Thank you for allowing us to participate in the care of this patient.The above note t ranscribed via dictation software. Please excuse any errors.Interventions Major-Hypertension - evalua tion and management, Other: DKA
[2019-07-31] MEDS ORDERED: Lactated Ringers 1,000 ML IV ONE (10:01)
--- NOTE | 2019-07-31 10:49 | PCM.PN ---
- General Info Date of Service: 07/31/19 Admission Dx/Problem (Free Text): Admission Diagnosis/Problem Admission Diagnosis/Problem Intractable vomiting Functional Status: Denies: Pain Controlled, Tolerating Diet - Review of Systems General: Reports: Weakness, Fatigue, Malaise Pulmonary: Denies: Shortness of Breath, Cough, Sputum Cardiovascular: Denies: Chest Pain, Dyspnea on Exertion Gastrointestinal: Reports: Abdominal Pain, Constipation, Decreased Appetite, Nausea, Vomiting. Denies: Diarrhea, Difficulty Swallowing, Hematochezia, Melena Genitourinary: Denies: Dysuria, Frequency, Burning Musculoskeletal: Denies: Neck Pain, Shoulder Pain, Arm Pain Skin: Denies: Cyanosis, Jaundice, Mottled Psychiatric: Reports: Agitation - Patient Data Vitals - Most Recent: Last Vital Signs Temp 37 C 07/31/19 08:00 Pulse 117 H 07/31/19 06:00 Resp 16 07/31/19 09:00 BP 151/90 H 07/31/19 09:00 Pulse Ox 93 L 07/31/19 09:00 Weight - Most Recent: 76.232 kg I&O - Last 24 Hours: Intake & Output 07/30/19 07/31/19 07/31/19 22:59 06:59 14:59 Intake Total 50 1679 Output Total 400 1300 Balance -350 379 Lab Results Last 24 Hours: Laboratory Results - last 24 hr 07/30/19 07/30/19 07/30/19 Range/Units 11:47 13:40 17:19 WBC (4.0-11.0) K/uL RBC (4.50-5.90) M/uL Hgb 9.1 L (13.0-17.0) g/dL Hct 28.7 L (38.0-50.0) % MCV (80.0-98.0) fL MCH (27.0-32.0) pg MCHC (31.0-37.0) g/dL RDW Std Deviation (28.0-62.0) fl RDW Coeff of Dania (11.0-15.0) % Plt Count (150-400) K/uL MPV (7.40-12.00) fL Neut % (Auto) (48.0-80.0) % Lymph % (Auto) (16.0-40.0) % [place] % (Auto) (0.0-15.0) % Eos % (Auto) (0.0-7.0) % Baso % (Auto) (0.0-1.5) % Neut # (Auto) (1.4-5.7) K/uL Lymph # (Auto) (0.6-2.4) K/uL [place] # (Auto) (0.0-0.8) K/uL Eos # (Auto) (0.0-0.7) K/uL Baso # (Auto) (0.0-0.1) K/uL Nucleated RBC % /100WBC Nucleated RBCs # K/uL Sodium (136-148) mmol/L Potassium (3.5-5.1) mmol/L Chloride (98-107) mmol/L Carbon Dioxide (21.0-32.0) mmol/L BUN (7.0-18.0) mg/dL Creatinine (0.8-1.3) mg/dL Est Cr Clr Drug Dosing mL/min Estimated GFR (MDRD) ml/min Glucose (74-106) mg/dL POC Glucose 337 H > 500 H (60-110) mg/dL Calcium (8.5-10.1) mg/dL Total Bilirubin (0.2-1.0) mg/dL AST (15-37) IU/L ALT (14-63) IU/L Alkaline Phosphatase (46-116) U/L Total Protein (6.4-8.2) g/dL Albumin (3.4-5.0) g/dL Globulin (2.6-4.0) g/dL Albumin/Globulin Ratio (0.9-1.6) 07/30/19 07/30/19 07/30/19 Range/Units 18:17 19:32 20:08 WBC (4.0-11.0) K/uL RBC (4.50-5.90) M/uL Hgb 9.8 L (13.0-17.0) g/dL Hct 32.1 L (38.0-50.0) % MCV (80.0-98.0) fL MCH (27.0-32.0) pg MCHC (31.0-37.0) g/dL RDW Std Deviation (28.0-62.0) fl RDW Coeff of Dania (11.0-15.0) % Plt Count (150-400) K/uL MPV (7.40-12.00) fL Neut % (Auto) (48.0-80.0) % Lymph % (Auto) (16.0-40.0) % [place] % (Auto) (0.0-15.0) % Eos % (Auto) (0.0-7.0) % Baso % (Auto) (0.0-1.5) % Neut # (Auto) (1.4-5.7) K/uL Lymph # (Auto) (0.6-2.4) K/uL [place] # (Auto) (0.0-0.8) K/uL Eos # (Auto) (0.0-0.7) K/uL Baso # (Auto) (0.0-0.1) K/uL Nucleated RBC % /100WBC Nucleated RBCs # K/uL Sodium (136-148) mmol/L Potassium (3.5-5.1) mmol/L Chloride (98-107) mmol/L Carbon Dioxide (21.0-32.0) mmol/L BUN (7.0-18.0) mg/dL Creatinine (0.8-1.3) mg/dL Est Cr Clr Drug Dosing mL/min Estimated GFR (MDRD) ml/min Glucose (74-106) mg/dL POC Glucose > 500 H > 500 H (60-110) mg/dL Calcium (8.5-10.1) mg/dL Total Bilirubin (0.2-1.0) mg/dL AST (15-37) IU/L ALT (14-63) IU/L Alkaline Phosphatase (46-116) U/L Total Protein (6.4-8.2) g/dL Albumin (3.4-5.0) g/dL Globulin (2.6-4.0) g/dL Albumin/Globulin Ratio (0.9-1.6) 07/30/19 07/30/19 07/30/19 Range/Units 20:08 20:08 20:29 WBC (4.0-11.0) K/uL RBC (4.50-5.90) M/uL Hgb Cancelled (13.0-17.0) g/dL Hct (38.0-50.0) % MCV (80.0-98.0) fL MCH (27.0-32.0) pg MCHC (31.0-37.0) g/dL RDW Std Deviation (28.0-62.0) fl RDW Coeff of Dania (11.0-15.0) % Plt Count (150-400) K/uL MPV (7.40-12.00) fL Neut % (Auto) (48.0-80.0) % Lymph % (Auto) (16.0-40.0) % [place] % (Auto) (0.0-15.0) % Eos % (Auto) (0.0-7.0) % Baso % (Auto) (0.0-1.5) % Neut # (Auto) (1.4-5.7) K/uL Lymph # (Auto) (0.6-2.4) K/uL [place] # (Auto) (0.0-0.8) K/uL Eos # (Auto) (0.0-0.7) K/uL Baso # (Auto) (0.0-0.1) K/uL Nucleated RBC % /100WBC Nucleated RBCs # K/uL Sodium 139 (136-148) mmol/L Potassium 4.1 (3.5-5.1) mmol/L Chloride 105 (98-107) mmol/L Carbon Dioxide 18.5 L (21.0-32.0) mmol/L BUN 38 H (7.0-18.0) mg/dL Creatinine 3.1 H (0.8-1.3) mg/dL Est Cr Clr Drug Dosing 33.89 mL/min Estimated GFR (MDRD) 28.3 ml/min Glucose 595 H* (74-106) mg/dL POC Glucose 479 H (60-110) mg/dL Calcium 8.0 L (8.5-10.1) mg/dL Total Bilirubin (0.2-1.0) mg/dL AST (15-37) IU/L ALT (14-63) IU/L Alkaline Phosphatase (46-116) U/L Total Protein (6.4-8.2) g/dL Albumin (3.4-5.0) g/dL Globulin (2.6-4.0) g/dL Albumin/Globulin Ratio (0.9-1.6) 07/30/19 07/30/19 07/30/19 Range/Units 21:31 22:30 23:55 WBC (4.0-11.0) K/uL RBC (4.50-5.90) M/uL Hgb (13.0-17.0) g/dL Hct (38.0-50.0) % MCV (80.0-98.0) fL MCH (27.0-32.0) pg MCHC (31.0-37.0) g/dL RDW Std Deviation (28.0-62.0) fl RDW Coeff of Dania (11.0-15.0) % Plt Count (150-400) K/uL MPV (7.40-12.00) fL Neut % (Auto) (48.0-80.0) % Lymph % (Auto) (16.0-40.0) % [place] % (Auto) (0.0-15.0) % Eos % (Auto) (0.0-7.0) % Baso % (Auto) (0.0-1.5) % Neut # (Auto) (1.4-5.7) K/uL Lymph # (Auto) (0.6-2.4) K/uL [place] # (Auto) (0.0-0.8) K/uL Eos # (Auto) (0.0-0.7) K/uL Baso # (Auto) (0.0-0.1) K/uL Nucleated RBC % /100WBC Nucleated RBCs # K/uL Sodium (136-148) mmol/L Potassium (3.5-5.1) mmol/L Chloride (98-107) mmol/L Carbon Dioxide (21.0-32.0) mmol/L BUN (7.0-18.0) mg/dL Creatinine (0.8-1.3) mg/dL Est Cr Clr Drug Dosing mL/min Estimated GFR (MDRD) ml/min Glucose (74-106) mg/dL POC Glucose 383 H 284 H 159 H (60-110) mg/dL Calcium (8.5-10.1) mg/dL Total Bilirubin (0.2-1.0) mg/dL AST (15-37) IU/L ALT (14-63) IU/L Alkaline Phosphatase (46-116) U/L Total Protein (6.4-8.2) g/dL Albumin (3.4-5.0) g/dL Globulin (2.6-4.0) g/dL Albumin/Globulin Ratio (0.9-1.6) 07/31/19 07/31/19 07/31/19 Range/Units 00:28 01:00 01:11 WBC (4.0-11.0) K/uL RBC (4.50-5.90) M/uL Hgb (13.0-17.0) g/dL Hct (38.0-50.0) % MCV (80.0-98.0) fL MCH (27.0-32.0) pg MCHC (31.0-37.0) g/dL RDW Std Deviation (28.0-62.0) fl RDW Coeff of Dania (11.0-15.0) % Plt Count (150-400) K/uL MPV (7.40-12.00) fL Neut % (Auto) (48.0-80.0) % Lymph % (Auto) (16.0-40.0) % [place] % (Auto) (0.0-15.0) % Eos % (Auto) (0.0-7.0) % Baso % (Auto) (0.0-1.5) % Neut # (Auto) (1.4-5.7) K/uL Lymph # (Auto) (0.6-2.4) K/uL [place] # (Auto) (0.0-0.8) K/uL Eos # (Auto) (0.0-0.7) K/uL Baso # (Auto) (0.0-0.1) K/uL Nucleated RBC % /100WBC Nucleated RBCs # K/uL Sodium 146 (136-148) mmol/L Potassium 3.9 (3.5-5.1) mmol/L Chloride 113 H (98-107) mmol/L Carbon Dioxide 22.8 (21.0-32.0) mmol/L BUN 34 H (7.0-18.0) mg/dL Creatinine 2.5 H (0.8-1.3) mg/dL Est Cr Clr Drug Dosing 42.03 mL/min Estimated GFR (MDRD) 36.2 ml/min Glucose 84 (74-106) mg/dL POC Glucose 103 72 (60-110) mg/dL Calcium 8.2 L (8.5-10.1) mg/dL Total Bilirubin (0.2-1.0) mg/dL AST (15-37) IU/L ALT (14-63) IU/L Alkaline Phosphatase (46-116) U/L Total Protein (6.4-8.2) g/dL Albumin (3.4-5.0) g/dL Globulin (2.6-4.0) g/dL Albumin/Globulin Ratio (0.9-1.6) 07/31/19 07/31/19 07/31/19 Range/Units 02:20 02:49 04:25 WBC (4.0-11.0) K/uL RBC (4.50-5.90) M/uL Hgb (13.0-17.0) g/dL Hct (38.0-50.0) % MCV (80.0-98.0) fL MCH (27.0-32.0) pg MCHC (31.0-37.0) g/dL RDW Std Deviation (28.0-62.0) fl RDW Coeff of Dania (11.0-15.0) % Plt Count (150-400) K/uL MPV (7.40-12.00) fL Neut % (Auto) (48.0-80.0) % Lymph % (Auto) (16.0-40.0) % [place] % (Auto) (0.0-15.0) % Eos % (Auto) (0.0-7.0) % Baso % (Auto) (0.0-1.5) % Neut # (Auto) (1.4-5.7) K/uL Lymph # (Auto) (0.6-2.4) K/uL [place] # (Auto) (0.0-0.8) K/uL Eos # (Auto) (0.0-0.7) K/uL Baso # (Auto) (0.0-0.1) K/uL Nucleated RBC % /100WBC Nucleated RBCs # K/uL Sodium (136-148) mmol/L Potassium (3.5-5.1) mmol/L Chloride (98-107) mmol/L Carbon Dioxide (21.0-32.0) mmol/L BUN (7.0-18.0) mg/dL Creatinine (0.8-1.3) mg/dL Est Cr Clr Drug Dosing mL/min Estimated GFR (MDRD) ml/min Glucose (74-106) mg/dL POC Glucose 124 H 172 H 271 H (60-110) mg/dL Calcium (8.5-10.1) mg/dL Total Bilirubin (0.2-1.0) mg/dL AST (15-37) IU/L ALT (14-63) IU/L Alkaline Phosphatase (46-116) U/L Total Protein (6.4-8.2) g/dL Albumin (3.4-5.0) g/dL Globulin (2.6-4.0) g/dL Albumin/Globulin Ratio (0.9-1.6) 07/31/19 07/31/19 Range/Units 06:08 06:08 WBC 9.04 (4.0-11.0) K/uL RBC 4.46 L (4.50-5.90) M/uL Hgb 9.6 L (13.0-17.0) g/dL Hct 30.1 L (38.0-50.0) % MCV 67.5 L (80.0-98.0) fL MCH 21.5 L (27.0-32.0) pg MCHC 31.9 (31.0-37.0) g/dL RDW Std Deviation 40.3 (28.0-62.0) fl RDW Coeff of Dania 16 H (11.0-15.0) % Plt Count 195 (150-400) K/uL MPV 10.80 (7.40-12.00) fL Neut % (Auto) 79.7 (48.0-80.0) % Lymph % (Auto) 9.2 L (16.0-40.0) % [place] % (Auto) 10.8 (0.0-15.0) % Eos % (Auto) 0.1 (0.0-7.0) % Baso % (Auto) 0.2 (0.0-1.5) % Neut # (Auto) 7.2 H (1.4-5.7) K/uL Lymph # (Auto) 0.8 (0.6-2.4) K/uL [place] # (Auto) 1.0 H (0.0-0.8) K/uL Eos # (Auto) 0.0 (0.0-0.7) K/uL Baso # (Auto) 0.0 (0.0-0.1) K/uL Nucleated RBC % 0.0 /100WBC Nucleated RBCs # 0 K/uL Sodium 144 (136-148) mmol/L Potassium 4.2 (3.5-5.1) mmol/L Chloride 111 H (98-107) mmol/L Carbon Dioxide 23.1 (21.0-32.0) mmol/L BUN 32 H (7.0-18.0) mg/dL Creatinine 2.4 H (0.8-1.3) mg/dL Est Cr Clr Drug Dosing 43.78 mL/min Estimated GFR (MDRD) 38.0 ml/min Glucose 254 H (74-106) mg/dL POC Glucose (60-110) mg/dL Calcium 7.7 L (8.5-10.1) mg/dL Total Bilirubin 0.1 L (0.2-1.0) mg/dL AST 20 (15-37) IU/L ALT 30 (14-63) IU/L Alkaline Phosphatase 95 (46-116) U/L Total Protein 5.7 L (6.4-8.2) g/dL Albumin 2.5 L (3.4-5.0) g/dL Globulin 3.2 (2.6-4.0) g/dL Albumin/Globulin Ratio 0.8 L (0.9-1.6) Med Orders - Current: Current Medications Hydromorphone HCl (Dilaudid) 0.5 mg IVPUSH Q4H PRN PRN Reason: Pain Pantoprazole Sodium 40 mg/ (Sodium Chloride) 10 mls @ 300 mls/hr IV Q12H MICHAEL Last Admin: 07/31/19 07:50 Dose: 300 mls/hr Nicardipine HCl (Cardene 20 Mg In Ns 200 Ml) 20 mg in 200 mls @ 50 mls/hr IV TITRATE MICHAEL; Protocol Last Titration: 07/31/19 04:50 Dose: Infused Lactated Ringer's (Ringers, Lactated) 1,000 mls @ 999 mls/hr IV .BOLUS ONE Stop: 07/31/19 11:01 Last Admin: 07/31/19 10:05 Dose: 999 mls/hr Insulin Aspart (Novolog) 0 unit SUBCUT QID MICHAEL; Protocol Last Admin: 07/31/19 05:02 Dose: 6 units Insulin Glargine (Lantus Solostar) 10 units SUBCUT BEDTIME MICHAEL Promethazine HCl (Phenergan) 12.5 mg IM Q6H PRN PRN Reason: Nausea/Vomiting Sodium Chloride (Saline Flush) 10 ml FLUSH ASDIRECTED PRN PRN Reason: Keep Vein Open Last Admin: 07/30/19 06:08 Dose: 10 ml Sodium Chloride (Saline Flush) 2.5 ml FLUSH ASDIRECTED PRN PRN Reason: Keep Vein Open Last Admin: 07/30/19 06:08 Dose: 2.5 ml Discontinued Medications Acetaminophen (Tylenol) 650 mg PO Q4H PRN PRN Reason: Pain (Mild 1-3)/fever Hydrocodone Bitart/Acetaminophen ([place] 325-5 Mg) 1 tab PO Q4H PRN PRN Reason: Pain (moderate 4-6) Diazepam (Valium) 5 mg IV ONETIME ONE Stop: 07/30/19 19:48 Last Admin: 07/30/19 20:16 Dose: 5 mg Diphenhydramine HCl (Benadryl) 50 mg IVPUSH ONETIME ONE Stop: 07/30/19 05:51 Last Admin: 07/30/19 06:06 Dose: 50 mg Diphenhydramine HCl (Benadryl) 25 mg IVPUSH ONETIME ONE Stop: 07/30/19 12:04 Last Admin: 07/30/19 12:13 Dose: 25 mg Diphenhydramine HCl (Benadryl) 50 mg IVPUSH ONETIME ONE Stop: 07/31/19 08:57 Last Admin: 07/31/19 10:03 Dose: Not Given Enoxaparin Sodium (Lovenox) 40 mg SUBCUT Q24H MICHAEL Last Admin: 07/30/19 08:05 Dose: Not Given Hydralazine HCl (Apresoline) 10 mg IVPUSH ONETIME ONE Stop: 07/30/19 06:20 Last Admin: 07/30/19 06:25 Dose: 10 mg Hydromorphone HCl (Dilaudid) 1 mg IVPUSH Q3H PRN PRN Reason: Pain Hydromorphone HCl (Dilaudid) 1 mg IVPUSH Q3H PRN PRN Reason: Pain Last Admin: 07/31/19 07:40 Dose: 1 mg Sodium Chloride (Normal Saline) 1,000 mls @ 999 mls/hr IV STAT ONE Stop: 07/30/19 06:50 Last Admin: 07/30/19 06:08 Dose: 999 mls/hr Sodium Chloride (Normal Saline) 1,000 mls @ 999 mls/hr IV BOLUS MICHAEL Stop: 07/30/19 08:31 Sodium Chloride (Normal Saline) 1,000 mls @ 999 mls/hr IV ONETIME ONE Stop: 07/30/19 10:30 Last Admin: 07/30/19 09:34 Dose: 999 mls/hr Insulin Human Regular 100 unit (/ Sodium Chloride) 100 mls @ 4 mls/hr IV TITRATE MICHAEL; Protocol Last Titration: 07/31/19 00:51 Dose: 3.8 unit/hr, 3.8 mls/hr Multivitamins/Minerals 10 ml/Thiamine HCl 100 mg/ Folic Acid 1 mg/ Sodium Chloride 1,011.2 mls @ 125 mls/hr IV ONETIME ONE Stop: 07/31/19 03:53 Last Admin: 07/30/19 20:15 Dose: 125 mls/hr Dextrose/Sodium Chloride (Dextrose 5%-Normal Saline) 1,000 mls @ 200 mls/hr IV ASDIRECTED MICHAEL Last Admin: 07/31/19 00:41 Dose: 200 mls/hr Sodium Chloride (Normal Saline) 1,000 mls @ 150 mls/hr IV ASDIRECTED [facility] Last Admin: 07/31/19 09:26 Dose: 150 mls/hr Insulin Aspart (Novolog) 0 unit SUBCUT TIDAC [facility]; Protocol Last Admin: 07/30/19 12:36 Dose: Not Given Insulin Glargine (Lantus Solostar) 10 units SUBCUT DAILY [facility] Last Admin: 07/31/19 10:04 Dose: Not Given Insulin Human Regular (Novolin R) 0 unit SUBCUT TIDAC MICHAEL; Protocol Last Admin: 07/30/19 18:20 Dose: 10 units Labetalol HCl (Normodyne) 20 mg IVPUSH ONETIME ONE; Protocol Stop: 07/30/19 10:03 Last Admin: 07/30/19 10:17 Dose: 20 mg Labetalol HCl (Normodyne) 20 mg IV Q4H PRN; Protocol PRN Reason: Hypertension Lorazepam (Ativan) 1 mg IVPUSH ONETIME ONE Stop: 07/30/19 05:51 Last Admin: 07/30/19 06:07 Dose: 1 mg Lorazepam (Ativan) 2 mg IVPUSH ONETIME ONE Stop: 07/30/19 12:04 Last Admin: 07/30/19 12:16 Dose: 2 mg Lorazepam (Ativan) 2 mg IVPUSH ONETIME ONE Stop: 07/31/19 08:57 Last Admin: 07/31/19 10:03 Dose: Not Given Metoclopramide HCl (Reglan) 10 mg IV ONETIME ONE Stop: 07/30/19 05:51 Last Admin: 07/30/19 06:05 Dose: 10 mg Metoclopramide HCl (Reglan) 5 mg IVPUSH Q6H MICHAEL Last Admin: 07/31/19 03:59 Dose: 5 mg Metoclopramide HCl (Reglan) 10 mg IVPUSH Q4H PRN PRN Reason: Nausea/Vomiting Last Admin: 07/31/19 04:45 Dose: 10 mg Morphine Sulfate (Morphine) 2 mg IVPUSH Q4H PRN PRN Reason: Pain Last Admin: 07/30/19 08:29 Dose: 2 mg Morphine Sulfate (Morphine) 2 mg IVPUSH ONETIME ONE Stop: 07/30/19 12:04 Last Admin: 07/30/19 12:19 Dose: 2 mg Ondansetron HCl (Zofran Odt) 4 mg PO Q4H PRN PRN Reason: nausea, able to take PO Ondansetron HCl (Zofran) 4 mg IVPUSH Q4H PRN PRN Reason: Nausea Last Admin: 07/31/19 01:35 Dose: 4 mg Pantoprazole Sodium (Protonix Iv) 80 mg IVPUSH .BOLUS ONE Stop: 07/30/19 05:53 Last Admin: 07/30/19 06:07 Dose: 80 mg - Exam General: Alert, Oriented, Moderate Distress. No: Cooperative Neck: Supple Lungs: Clear to Auscultation, Normal Respiratory Effort Cardiovascular: Regular Rhythm, Tachycardia GI/Abdominal Exam: Normal Bowel Sounds, Soft, Tender. No: No Distention, Distended, Hepatomegaly, Splenomegaly Extremities: Other (Left BKA) Peripheral Pulses: 3+: Dorsalis Pedis (L) Psy/Mental Status: Labile Mood, Agitated - Problem List & Annotations (1) Hypertensive emergency SNOMED Code(s): 052752106264953 Code(s): I16.1 - HYPERTENSIVE EMERGENCY Status: Acute Current Visit: Yes (2) OTILIA (acute kidney injury) SNOMED Code(s): 17172989, 21429343 Code(s): N17.9 - ACUTE KIDNEY FAILURE, UNSPECIFIED Status: Acute Current Visit: Yes (3) Gastroparesis due to DM SNOMED Code(s): 870159612 Code(s): E11.43 - TYPE 2 DIABETES W DIABETIC AUTONOMIC (POLY)NEUROPATHY; K31.84 - GASTROPARESIS Status: Acute Current Visit: Yes (4) DKA (diabetic ketoacidoses) SNOMED Code(s): 934564863, 947597725 Code(s): E13.10 - OTH DIABETES MELLITUS WITH KETOACIDOSIS WITHOUT COMA Status: Acute Current Visit: No Qualifiers: Diabetes mellitus type: type 1 Diabetes mellitus complication detail: without coma Qualified Code(s): E10.10 - Type 1 diabetes mellitus with ketoacidosis without coma - Problem List Review Problem List Initiated/Reviewed/Updated: Yes - My Orders Last 24 Hours: My Active Orders 07/30/19 11:45 niCARdipine/Normal Saline [Cardene 20 MG in NS 200 ML] 20 mg in 200 ml IV TITRATE 07/30/19 11:53 Transfer Patient (Change bed) [ADT] Routine 07/30/19 11:54 Patient Status [ADT] Routine 07/31/19 10:01 Lactated Ringers [Ringers, Lactated] 1,000 ml IV .BOLUS 07/31/19 10:43 Promethazine [Phenergan] 12.5 mg IM Q6H PRN 07/31/19 10:47 HYDROmorphone [Dilaudid] 0.5 mg IVPUSH Q4H PRN 07/31/19 11:00 Lactated Ringers @ 125 MLS/HR(1,000ml) Lactated Ringers [Ringers, Lactated] 1, 000 ml IV ASDIRECTED 07/31/19 21:00 Insulin Glarg,Human.Rec.Analog [LantUS Solostar] 10 units SUBCUT BEDTIME 07/31/19 Lunch Clear Liquid Diet [DIET] - Plan Plan:: A: 1. Hypertensive emergency resolved, cont IV antihypertensive as yet unable to tolerate PO 2. Suspected hematemesis, no more episodes, Hb stable 3. Intractable nausea, abdominal pain,likely sec to gastroparesis cont Phenergan , d/c Reglan and Zofran as patient states they aren't helping. Decrease the dose of Dilaudid. 4. Medical non-compliance, counselled in detail 5. Agitation: patient gets very agitated and has become rude and confrontational with the house staff. Seem to have a seeking behavior, continues to state he is in pain. I will decrease the dose of Dilaudid as its counter productive for his gastroparesis. patient very agitated as he wants higher dose of Narcotics. Will try Phenergan for N/V pain , PRN Ativan for agitation. I don't suspect metabolic encephalopathy as of now. 6. DKA: off the drip, on Subq Insulin SSI and bedtime long acting insulin.
[2019-07-31] MEDS: Promethazine 25 MG/ML SDV IM PRN ×2 (10:54→22:12)
[2019-07-31] MEDS: Lactated Ringers 1,000 ML IV SCH ×2 (11:38→20:15)
[2019-07-31] MEDS ORDERED: Labetalol 100 MG/20 ML MDV IVPUSH PRN (12:59)
[2019-07-31] MEDS ORDERED: niCARdipine/Normal Saline 20 MG/200 ML BAG IV SCH (17:45)
--- NOTE | 2019-07-31 17:50 | PCM.SN ---
- Free Text/Narrative Note: Attempted to wean off the nicardipine gtt, but BP is rising again with insufficient response to IV labetalol, still doesn't tolerate PO diet very well , No chest pain but does c/o headache, will resume Nicardipine gtt at this point for better and sustained BP control. Will attempt to wean off as tolerated by tomorrow. Once able to tolerate PO meds will start on oral antihypertensive meds.
[2019-07-31] MEDS: LORazepam 2 MG/ML SDV IVPUSH PRN (18:08)
[2019-07-31] MEDS ORDERED: Insulin Glargine,Human Rec. Analog 100 Units/ML 3 ML Pen SUBCUT SCH (21:00)
[2019-08-01] MEDS: Docusate Sodium 100 MG Cap PO SCH ×2 (00:10→10:51)
[2019-08-01] MEDS: Lactated Ringers 1,000 ML IV SCH ×2 (03:45→11:27)
[2019-08-01] MEDS: LORazepam 2 MG/ML SDV IVPUSH PRN ×2 (05:47→15:35)
[2019-08-01 06:28] LABS: CARBON DIOXIDE,CO2 23.4 mmol/L (21.0-32.0); POTASSIUM,K 3.9 mmol/L (3.5-5.1)
[2019-08-01] MEDS: Insulin Aspart 100 Units/ML 3 ML Pen SUBCUT SCH ×4 (07:17→17:20)
[2019-08-01] MEDS ORDERED: Bisacodyl 10 MG Supp RECTAL PRN (07:51)
[2019-08-01] MEDS: Pantoprazole 40 MG in Sodium Chloride 0.9% 10 ML IV SCH (08:08)
--- NOTE | 2019-08-01 08:31 | PN ---
[facility] Physician - Brief Progress FoydRUZRUENBS65/18/2019 08:19[facility] Danish Tavera, RAFAEL - ISIDORON (SULEIMANN) - MWN MONIKDAWOOD JONESGuilhermeDate of Service 08/01/2019 08:19HPI/Events of Note eICU Progress [id number] admitted for DKA and hypertensive urgency. History obtained primarily f rom review of EMR.Camera exam: Laying in bed. Vitals monitor reviewed. Tachycardic, patient is on maya ne sitting up in bedVitals: reviewedLabs: reviewedRadiology: reviewedMeds: reviewedeICU Impression an d Recommendations:DKA, resolvedDiabetes mellitus with hyperglycemiaSuggest titration of lantus based on ISS needs, can consider increase in dose by approximately 50% of ISS use in prior 24 hoursRecommen d targeted glucose goal of <180Hypertensive urgency/emergencyAcute kidney injury, improvingTransition to oral regimen (ie oral labetalol)See prior recommendations regarding work up of secondary hyperten sionReported history of hematemesis, with stable hemoglobin and without repeat episodes so far while inpatientMicrocytic anemia, uncertain etiologyIf not already performed, consider iron studies (this c ould probably be pursued as an outpatient)DVT and GI prophylaxis as appropriate.We are available to a ssist in further clarification, or implementation of any of the above recommendations if desired by stan wright.Thank you for allowing us to participate in the care of this patient.The above note tr anscribed via dictation software. Please excuse any errors.Interventions Major-Hypertension - evaluat ion and management
[2019-08-01] MEDS ORDERED: amLODIPine 5 MG Tab PO SCH ×2 (08:45→21:00)
[2019-08-01] MEDS ORDERED: Metoprolol Succinate 100 MG Tab.ER PO SCH (09:00)
--- NOTE | 2019-08-01 09:12 | PCM.PN ---
- General Info Date of Service: 08/01/19 Admission Dx/Problem (Free Text): Admission Diagnosis/Problem Admission Diagnosis/Problem Intractable vomiting Subjective Update: Feeling very bloated this morning, having abdominal pain. No chest pain or SOB. Slightly agitated with cares. No other complaints. Wanting something to have BM. Functional Status: Reports: Ambulating, Urinating. Denies: Pain Controlled - Review of Systems General: Reports: Fatigue, Malaise. Denies: Weakness HEENT: Reports: No Symptoms. Denies: Headaches, Sore Throat, Visual Changes Pulmonary: Reports: No Symptoms. Denies: Shortness of Breath Cardiovascular: Reports: No Symptoms. Denies: Chest Pain Gastrointestinal: Reports: Abdominal Pain, Constipation (bloated and distended) . Denies: Nausea Genitourinary: Reports: No Symptoms Musculoskeletal: Reports: No Symptoms Skin: Reports: No Symptoms Neurological: Reports: No Symptoms Psychiatric: Reports: No Symptoms - Patient Data Vitals - Most Recent: Last Vital Signs Temp 98 F 08/01/19 08:00 Pulse 117 H 07/31/19 06:00 Resp 14 08/01/19 08:00 BP 149/99 H 08/01/19 08:00 Pulse Ox 95 08/01/19 08:00 Weight - Most Recent: 76.232 kg I&O - Last 24 Hours: Intake & Output 07/31/19 08/01/19 08/01/19 22:59 06:59 14:59 Intake Total 2699 2175 Output Total 520 650 Balance 2179 1525 Lab Results Last 24 Hours: Laboratory Results - last 24 hr 07/31/19 07/31/19 07/31/19 Range/Units 07:45 12:28 17:13 WBC (4.0-11.0) K/uL RBC (4.50-5.90) M/uL Hgb (13.0-17.0) g/dL Hct (38.0-50.0) % MCV (80.0-98.0) fL MCH (27.0-32.0) pg MCHC (31.0-37.0) g/dL RDW Std Deviation (28.0-62.0) fl RDW Coeff of Dania (11.0-15.0) % Plt Count (150-400) K/uL MPV (7.40-12.00) fL Neut % (Auto) (48.0-80.0) % Lymph % (Auto) (16.0-40.0) % [place] % (Auto) (0.0-15.0) % Eos % (Auto) (0.0-7.0) % Baso % (Auto) (0.0-1.5) % Neut # (Auto) (1.4-5.7) K/uL Lymph # (Auto) (0.6-2.4) K/uL [place] # (Auto) (0.0-0.8) K/uL Eos # (Auto) (0.0-0.7) K/uL Baso # (Auto) (0.0-0.1) K/uL Nucleated RBC % /100WBC Nucleated RBCs # K/uL Sodium (136-148) mmol/L Potassium (3.5-5.1) mmol/L Chloride (98-107) mmol/L Carbon Dioxide (21.0-32.0) mmol/L BUN (7.0-18.0) mg/dL Creatinine (0.8-1.3) mg/dL Est Cr Clr Drug Dosing mL/min Estimated GFR (MDRD) ml/min Glucose (74-106) mg/dL POC Glucose 178 H 204 H 125 H (60-110) mg/dL Calcium (8.5-10.1) mg/dL Total Bilirubin (0.2-1.0) mg/dL AST (15-37) IU/L ALT (14-63) IU/L Alkaline Phosphatase (46-116) U/L Total Protein (6.4-8.2) g/dL Albumin (3.4-5.0) g/dL Globulin (2.6-4.0) g/dL Albumin/Globulin Ratio (0.9-1.6) 07/31/19 08/01/19 08/01/19 Range/Units 21:07 05:55 05:55 WBC 6.91 (4.0-11.0) K/uL RBC 4.62 (4.50-5.90) M/uL Hgb 9.8 L (13.0-17.0) g/dL Hct 31.2 L (38.0-50.0) % MCV 67.5 L (80.0-98.0) fL MCH 21.2 L (27.0-32.0) pg MCHC 31.4 (31.0-37.0) g/dL RDW Std Deviation 40.4 (28.0-62.0) fl RDW Coeff of Dania 16 H (11.0-15.0) % Plt Count 234 (150-400) K/uL MPV 10.40 (7.40-12.00) fL Neut % (Auto) 55.0 (48.0-80.0) % Lymph % (Auto) 33.4 (16.0-40.0) % [place] % (Auto) 10.9 (0.0-15.0) % Eos % (Auto) 0.3 (0.0-7.0) % Baso % (Auto) 0.4 (0.0-1.5) % Neut # (Auto) 3.8 (1.4-5.7) K/uL Lymph # (Auto) 2.3 (0.6-2.4) K/uL [place] # (Auto) 0.8 (0.0-0.8) K/uL Eos # (Auto) 0.0 (0.0-0.7) K/uL Baso # (Auto) 0.0 (0.0-0.1) K/uL Nucleated RBC % 0.0 /100WBC Nucleated RBCs # 0 K/uL Sodium 140 (136-148) mmol/L Potassium 3.9 (3.5-5.1) mmol/L Chloride 106 (98-107) mmol/L Carbon Dioxide 23.4 (21.0-32.0) mmol/L BUN 22 H (7.0-18.0) mg/dL Creatinine 2.0 H (0.8-1.3) mg/dL Est Cr Clr Drug Dosing 52.53 mL/min Estimated GFR (MDRD) 46.9 ml/min Glucose 206 H (74-106) mg/dL POC Glucose 211 H (60-110) mg/dL Calcium 7.7 L (8.5-10.1) mg/dL Total Bilirubin 0.2 (0.2-1.0) mg/dL AST 31 (15-37) IU/L ALT 26 (14-63) IU/L Alkaline Phosphatase 83 (46-116) U/L Total Protein 5.7 L (6.4-8.2) g/dL Albumin 2.2 L (3.4-5.0) g/dL Globulin 3.5 (2.6-4.0) g/dL Albumin/Globulin Ratio 0.6 L (0.9-1.6) Med Orders - Current: Current Medications Amlodipine Besylate (Norvasc) 10 mg PO BEDTIME [facility] Bisacodyl (Dulcolax) 10 mg RECTAL DAILY PRN PRN Reason: Constipation Docusate Sodium (Colace) 100 mg PO DAILY [facility] Last Admin: 08/01/19 00:10 Dose: 100 mg Hydromorphone HCl (Dilaudid) 0.5 mg IVPUSH Q4H PRN PRN Reason: Pain Last Admin: 07/31/19 22:07 Dose: 0.5 mg Pantoprazole Sodium 40 mg/ (Sodium Chloride) 10 mls @ 300 mls/hr IV Q12H [facility] Last Admin: 08/01/19 08:08 Dose: 300 mls/hr Lactated Ringer's (Ringers, Lactated) 1,000 mls @ 125 mls/hr IV ASDIRECTED [facility] Last Admin: 08/01/19 03:45 Dose: 125 mls/hr Insulin Aspart (Novolog) 0 unit SUBCUT QIDACANDBED [facility]; Protocol Last Admin: 08/01/19 07:17 Dose: Not Given Insulin Glargine (Lantus Solostar) 10 units SUBCUT BEDTIME [facility] Last Admin: 07/31/19 21:16 Dose: 10 units Lorazepam (Ativan) 1 mg IVPUSH Q6H PRN PRN Reason: Anxiety Last Admin: 08/01/19 05:47 Dose: 1 mg Metoclopramide HCl (Reglan) 10 mg IVPUSH Q8H [facility] Metoprolol Succinate (Toprol Xl) 200 mg PO DAILY [facility] Promethazine HCl (Phenergan) 12.5 mg IM Q6H PRN PRN Reason: Nausea/Vomiting Last Admin: 07/31/19 22:12 Dose: 12.5 mg Sodium Chloride (Saline Flush) 10 ml FLUSH ASDIRECTED PRN PRN Reason: Keep Vein Open Last Admin: 07/30/19 06:08 Dose: 10 ml Sodium Chloride (Saline Flush) 2.5 ml FLUSH ASDIRECTED PRN PRN Reason: Keep Vein Open Last Admin: 07/30/19 06:08 Dose: 2.5 ml Discontinued Medications Acetaminophen (Tylenol) 650 mg PO Q4H PRN PRN Reason: Pain (Mild 1-3)/fever Hydrocodone Bitart/Acetaminophen (Vass 325-5 Mg) 1 tab PO Q4H PRN PRN Reason: Pain (moderate 4-6) Amlodipine Besylate (Norvasc) 10 mg PO BEDTIME [facility] Diazepam (Valium) 5 mg IV ONETIME ONE Stop: 07/30/19 19:48 Last Admin: 07/30/19 20:16 Dose: 5 mg Diphenhydramine HCl (Benadryl) 50 mg IVPUSH ONETIME ONE Stop: 07/30/19 05:51 Last Admin: 07/30/19 06:06 Dose: 50 mg Diphenhydramine HCl (Benadryl) 25 mg IVPUSH ONETIME ONE Stop: 07/30/19 12:04 Last Admin: 07/30/19 12:13 Dose: 25 mg Diphenhydramine HCl (Benadryl) 50 mg IVPUSH ONETIME ONE Stop: 07/31/19 08:57 Last Admin: 07/31/19 10:03 Dose: Not Given Enoxaparin Sodium (Lovenox) 40 mg SUBCUT Q24H [facility] Last Admin: 07/30/19 08:05 Dose: Not Given Hydralazine HCl (Apresoline) 10 mg IVPUSH ONETIME ONE Stop: 07/30/19 06:20 Last Admin: 07/30/19 06:25 Dose: 10 mg Hydromorphone HCl (Dilaudid) 1 mg IVPUSH Q3H PRN PRN Reason: Pain Hydromorphone HCl (Dilaudid) 1 mg IVPUSH Q3H PRN PRN Reason: Pain Last Admin: 07/31/19 07:40 Dose: 1 mg Sodium Chloride (Normal Saline) 1,000 mls @ 999 mls/hr IV STAT ONE Stop: 07/30/19 06:50 Last Admin: 07/30/19 06:08 Dose: 999 mls/hr Sodium Chloride (Normal Saline) 1,000 mls @ 999 mls/hr IV BOLUS [facility] Stop: 07/30/19 08:31 Sodium Chloride (Normal Saline) 1,000 mls @ 999 mls/hr IV ONETIME ONE Stop: 07/30/19 10:30 Last Admin: 07/30/19 09:34 Dose: 999 mls/hr Nicardipine HCl (Cardene 20 Mg In Ns 200 Ml) 20 mg in 200 mls @ 50 mls/hr IV TITRATE [facility]; Protocol Last Titration: 07/31/19 04:50 Dose: Infused Insulin Human Regular 100 unit (/ Sodium Chloride) 100 mls @ 4 mls/hr IV TITRATE [facility]; Protocol Last Titration: 07/31/19 00:51 Dose: 3.8 unit/hr, 3.8 mls/hr Multivitamins/Minerals 10 ml/Thiamine HCl 100 mg/ Folic Acid 1 mg/ Sodium Chloride 1,011.2 mls @ 125 mls/hr IV ONETIME ONE Stop: 07/31/19 03:53 Last Admin: 07/30/19 20:15 Dose: 125 mls/hr Dextrose/Sodium Chloride (Dextrose 5%-Normal Saline) 1,000 mls @ 200 mls/hr IV ASDIRECTED [facility]HA[facility] Last Admin: 07/31/19 00:41 Dose: 200 mls/hr Sodium Chloride (Normal Saline) 1,000 mls @ 150 mls/hr IV ASDIRECTED [facility] Last Admin: 07/31/19 09:26 Dose: 150 mls/hr Lactated Ringer's (Ringers, Lactated) 1,000 mls @ 999 mls/hr IV .BOLUS ONE Stop: 07/31/19 11:01 Last Admin: 07/31/19 10:05 Dose: 999 mls/hr Nicardipine HCl (Cardene 20 Mg In Ns 200 Ml) 20 mg in 200 mls @ 50 mls/hr IV TITRATE MICHA[facility]; Protocol Last Titration: 07/31/19 23:50 Dose: Infused Insulin Aspart (Novolog) 0 unit SUBCUT TIDAC [facility]; Protocol Last Admin: 07/30/19 12:36 Dose: Not Given Insulin Aspart (Novolog) 0 unit SUBCUT QID [facility]; Protocol Last Admin: 08/01/19 08:14 Dose: Not Given Insulin Glargine (Lantus Solostar) 10 units SUBCUT DAILY [facility] Last Admin: 07/31/19 10:04 Dose: Not Given Insulin Human Regular ([facility]olin R) [facility]; Protocol Last Admin: 07/30/19 18:20 Dose: 10 units Labetalol HCl (Normodyne) 20 mg IVPUSH ONETIME ONE; Protocol Stop: 07/30/19 10:03 Last Admin: 07/30/19 10:17 Dose: 20 mg Labetalol HCl (Normodyne) 20 mg IV Q4H PRN; Protocol PRN Reason: Hypertension Labetalol HCl (Normodyne) 10 mg IVPUSH Q6H PRN; Protocol PRN Reason: Hypertension Last Admin: 07/31/19 14:14 Dose: 10 mg Lorazepam (Ativan) 1 mg IVPUSH ONETIME ONE Stop: 07/30/19 05:51 Last Admin: 07/30/19 06:07 Dose: 1 mg Lorazepam (Ativan) 2 mg IVPUSH ONETIME ONE Stop: 07/30/19 12:04 Last Admin: 07/30/19 12:16 Dose: 2 mg Lorazepam (Ativan) 2 mg IVPUSH ONETIME ONE Stop: 07/31/19 08:57 Last Admin: 07/31/19 10:03 Dose: Not Given Metoclopramide HCl (Reglan) 10 mg IV ONETIME ONE Stop: 07/30/19 05:51 Last Admin: 07/30/19 06:05 Dose: 10 mg Metoclopramide HCl (Reglan) 5 mg IVPUSH Q6H [facility] Last Admin: 07/31/19 03:59 Dose: 5 mg Metoclopramide HCl (Reglan) 10 mg IVPUSH Q4H PRN PRN Reason: Nausea/Vomiting Last Admin: 07/31/19 04:45 Dose: 10 mg Morphine Sulfate (Morphine) 2 mg IVPUSH Q4H PRN PRN Reason: Pain Last Admin: 07/30/19 08:29 Dose: 2 mg Morphine Sulfate (Morphine) 2 mg IVPUSH ONETIME ONE Stop: 07/30/19 12:04 Last Admin: 07/30/19 12:19 Dose: 2 mg Ondansetron HCl (Zofran Odt) 4 mg PO Q4H PRN PRN Reason: nausea, able to take PO Ondansetron HCl (Zofran) 4 mg IVPUSH Q4H PRN PRN Reason: Nausea Last Admin: 07/31/19 01:35 Dose: 4 mg Pantoprazole Sodium (Protonix Iv) 80 mg IVPUSH .BOLUS ONE Stop: 07/30/19 05:53 Last Admin: 07/30/19 06:07 Dose: 80 mg - Exam General: Alert, Oriented, Cooperative Neck: Supple Lungs: Clear to Auscultation, Normal Respiratory Effort Cardiovascular: Regular Rhythm, Tachycardia GI/Abdominal Exam: Soft, Distended, Tender (throughout abdomen). No: Normal Bowel Sounds (hypoactive) Extremities: Normal Inspection, Normal Range of Motion, Non-Tender, No Pedal Edema, Other (R BKA) Neurological: No New Focal Deficit Psy/Mental Status: Alert, Normal Affect, Normal Mood - Problem List & Annotations (1) Hypertensive emergency SNOMED Code(s): 455250073065064 Code(s): I16.1 - HYPERTENSIVE EMERGENCY Status: Acute Current Visit: Yes (2) Gastroparesis due to DM SNOMED Code(s): 523256179 Code(s): E11.43 - TYPE 2 DIABETES W DIABETIC AUTONOMIC (POLY)NEUROPATHY; K31.84 - GASTROPARESIS Status: Acute Current Visit: Yes (3) OTILIA (acute kidney injury) SNOMED Code(s): 49973751, 53331260 Code(s): N17.9 - ACUTE KIDNEY FAILURE, UNSPECIFIED Status: Acute Current Visit: Yes (4) Anemia in chronic kidney disease (CKD) SNOMED Code(s): 643153221 Code(s): N18.9 - CHRONIC KIDNEY DISEASE, UNSPECIFIED; D63.1 - ANEMIA IN CHRONIC KIDNEY DISEASE Status: Chronic Priority: High Current Visit: No Qualifiers: Chronic kidney disease stage: stage 3 (moderate) Qualified Code(s): N18.3 - Chronic kidney disease, stage 3 (moderate); D63.1 - Anemia in chronic kidney disease (5) Chronic kidney disease, stage 3 (moderate) SNOMED Code(s): 859043598 Code(s): N18.3 - CHRONIC KIDNEY DISEASE, STAGE 3 (MODERATE) Status: Chronic Priority: High Current Visit: No (6) History of - diabetes mellitus SNOMED Code(s): 175801624 Code(s): Z86.39 - PERSONAL HISTORY OF ENDO, NUTRITIONAL AND METABOLIC DISEASE Status: Chronic Current Visit: No Onset Date: 05/06/14 (7) History of CVA (cerebrovascular accident) SNOMED Code(s): 228735971 Code(s): Z86.73 - PRSNL HX OF TIA (TIA), AND CEREB INFRC W/O RESID DEFICITS Status: Chronic Current Visit: No (8) History of diabetic gastroparesis SNOMED Code(s): 878707623 Code(s): Z86.39 - PERSONAL HISTORY OF ENDO, NUTRITIONAL AND METABOLIC DISEASE Status: Chronic Current Visit: No (9) Hx of gastroesophageal reflux (GERD) SNOMED Code(s): 66619520038087 Code(s): Z87.19 - PERSONAL HISTORY OF OTHER DISEASES OF THE DIGESTIVE SYSTEM Status: Chronic Current Visit: No (10) Hypertension SNOMED Code(s): 48918845 Code(s): I10 - ESSENTIAL (PRIMARY) HYPERTENSION Status: Chronic Current Visit: No Qualifiers: Hypertension type: essential hypertension Qualified Code(s): I10 - Essential (primary) hypertension (11) S/P BKA (below knee amputation) unilateral SNOMED Code(s): 580015269, 44162435, 539875079 Code(s): Z89.519 - ACQUIRED ABSENCE OF UNSPECIFIED LEG BELOW KNEE Status: Chronic Priority: Medium Current Visit: No - Problem List Review Problem List Initiated/Reviewed/Updated: Yes - My Orders Last 24 Hours: My Active Orders 08/01/19 07:51 Bisacodyl [Dulcolax] 10 mg RECTAL DAILY PRN 08/01/19 08:00 Metoclopramide [Reglan] 10 mg IVPUSH Q8H 08/01/19 08:07 Abdomen 2V AP Flat Upright [CR] Urgent 08/01/19 08:45 amLODIPine [Norvasc] 10 mg PO BEDTIME 08/01/19 09:00 Metoprolol Succinate [Toprol XL] 200 mg PO DAILY - Plan Plan:: This 34 year old male admitted with intractable N/V, suspected hematemesis and HTN emergency. 1. Gastroparesis: Will start Reglan today and monitor. Starting to tolerate CL diet. Reports a lot of abdominal bloating and wants something for BM. Hypoactive Bowel sounds. Will obtained Xray. Start Dulcolax after exam results. Continues to need referral and is working with PCP to get to [facility] as recommended for gastroparesis. 2. HTN: Nicardipine gtt restarted last night. Once able to tolerate PO today, will transition to PO medications. He is asking to go home today. 3. DM Type 1: DKA resolved. Continue Lantus, will increase to home dosing as diet allows. Has hx of hypoglycemia in hospital when given higher doses of Lantus and CL diet. SSI with meals. 4. CKD: Stable, improving. Monitor 5. Anemia: Stable. Has history of anemia of chronic disease. takes iron daily. Continue to Monitor. No further GI bleeding, had EGD in recent past with notable gastritis. Continue Protonix. VTE prophylaxis: SCDs GI prophylaxis: Protonix. Dispo: Asking to go home today
[2019-08-01] MEDS: Metoclopramide 10 MG/2 ML SDV IVPUSH SCH ×2 (09:43→15:39)
[2019-08-01] MEDS ORDERED: Hydrochlorothiazide 25 MG Tab PO SCH (09:45)
[2019-08-01] MEDS ORDERED: Torsemide 20 MG Tab PO SCH (09:45)
[2019-08-01] MEDS ORDERED: Spironolactone 25 MG Tab PO SCH (09:45)
--- NOTE | 2019-08-01 09:59 | CR ---
INDICATION: Abdominal pain. TECHNIQUE: Upright and supine views of the abdomen IMPRESSION : Flanks appears somewhat bulging. There is displacement between the properitoneal fat stripe and the colon and diffuse increased density in the mid abdomen which could suggest ascites. Ultrasound or CT for confirmation could be considered. Possible calcification lower pole left kidney. The bowel gas pattern is nonobstructive. Paucity of bowel gas Upright exam shows no free air under the hemidiaphragms. Dictated by Yony Pillai MD @ Aug 01 2019 9:55AM Signed by Dr. Yony Pillai @ Aug 01 2019 9:58AM
[2019-08-01 10:56] VITALS: PULSE 113
[2019-08-01] MEDS ORDERED: Doxazosin 4 MG Tab PO SCH (14:44)
--- NOTE | 2019-08-01 15:37 | US ---
Renal ultrasound with renal arterial Doppler: Multiple real-time images the kidneys were obtained as well as renal arterial Doppler of the renal arteries. Comparison: Prior renal ultrasound study of 04/17/06. Kidneys show no hydronephrosis or mass. Maximum systolic velocity measurement on the right side is 48.6 cm/s and on the left side 60.6 cm/s. These velocity measurements are within normal limits. Right kidney length: 11.3 cm Left kidney length: 12.6 cm Impression: 1. No abnormality is seen on renal ultrasound exam. 2. No evidence of hemodynamic significant renal artery stenosis. Diagnostic code #1 MTDD
--- NOTE | 2019-08-01 16:42 | PCM.DCSUM1 ---
Discharge Summary - Hospital Course Brief History: 34 y/o male with history of diabetes type 1, hypertension who presented to the ER complaining of nausea and hematemesis. He states that symptoms started yesterday and hat he has not been able to eat due to nausea, vomiting. Has been complaining of abdominal pain. He denies any bloody stools. He states he is constipated. Denies any headache, dyspnea, chest pain, dysuria, diarrhea, blood stool. In the ER, Hg 11 and Cr 2.4. He was bolused with 2 L NS. He was admitted for suspected hematemesis, intractable vomiting and abdominal pain. In the ER, he was noted to be hypertensive SBP 220's. He was given 1 dose hydralazine 10 mg IV. When I evaluated the patient in the ER, the patient was standing in no acute distress and when I entered he started complaining of abdominal pain and emesis. Diagnosis: Stroke: No - Discharge Data Discharge Date: 08/01/19 Discharge Disposition: Home, Self-Care 01 Condition: Stable - Referral to Home Health Primary Care Physician: PCP None - Discharge Diagnosis/Problem(s) (1) Hypertensive emergency SNOMED Code(s): 908630051379289 ICD Code: I16.1 - HYPERTENSIVE EMERGENCY Status: Acute (2) Gastroparesis due to DM SNOMED Code(s): 456348560 ICD Code: E11.43 - TYPE 2 DIABETES W DIABETIC AUTONOMIC (POLY)NEUROPATHY; K31.84 - GASTROPARESIS Status: Acute (3) OTILIA (acute kidney injury) SNOMED Code(s): 09952490, 67843162 ICD Code: N17.9 - ACUTE KIDNEY FAILURE, UNSPECIFIED Status: Acute (4) Anemia in chronic kidney disease (CKD) SNOMED Code(s): 019967777 ICD Code: N18.9 - CHRONIC KIDNEY DISEASE, UNSPECIFIED; D63.1 - ANEMIA IN CHRONIC KIDNEY DISEASE Status: Chronic Priority: High Qualifiers: Chronic kidney disease stage: stage 3 (moderate) Qualified Code(s): N18.3 - Chronic kidney disease, stage 3 (moderate); D63.1 - Anemia in chronic kidney disease (5) Chronic kidney disease, stage 3 (moderate) SNOMED Code(s): 250097149 ICD Code: N18.3 - CHRONIC KIDNEY DISEASE, STAGE 3 (MODERATE) Status: Chronic Priority: High (6) History of - diabetes mellitus SNOMED Code(s): 917892972 ICD Code: Z86.39 - PERSONAL HISTORY OF ENDO, NUTRITIONAL AND METABOLIC DISEASE Status: Chronic Onset Date: 05/06/14 (7) History of CVA (cerebrovascular accident) SNOMED Code(s): 074489997 ICD Code: Z86.73 - PRSNL HX OF TIA (TIA), AND CEREB INFRC W/O RESID DEFICITS Status: Chronic (8) History of diabetic gastroparesis SNOMED Code(s): 862573002 ICD Code: Z86.39 - PERSONAL HISTORY OF ENDO, NUTRITIONAL AND METABOLIC DISEASE Status: Chronic (9) Hx of gastroesophageal reflux (GERD) SNOMED Code(s): 79449485062109 ICD Code: Z87.19 - PERSONAL HISTORY OF OTHER DISEASES OF THE DIGESTIVE SYSTEM Status: Chronic (10) Hypertension SNOMED Code(s): 90820494 ICD Code: I10 - ESSENTIAL (PRIMARY) HYPERTENSION Status: Chronic Qualifiers: Hypertension type: essential hypertension Qualified Code(s): I10 - Essential (primary) hypertension (11) S/P BKA (below knee amputation) unilateral SNOMED Code(s): 649883244, 04461102, 650768395 ICD Code: Z89.519 - ACQUIRED ABSENCE OF UNSPECIFIED LEG BELOW KNEE Status: Chronic Priority: Medium - Patient Instructions Diet: Heart Healthy Diet, Diabetic Diet Activity: As Tolerated Driving: Do Not Drive Showering/Bathing: May Shower Notify Provider of: Fever, Increased Pain, Swelling and Redness, Drainage, Nausea and/or Vomiting - Discharge Plan *PRESCRIPTION DRUG MONITORING PROGRAM REVIEWED*: Not Applicable *COPY OF PRESCRIPTION DRUG MONITORING REPORT IN PATIENT IVELISSE: Not Applicable Home Medications: Home Meds Doxazosin [Cardura] 4 mg PO BEDTIME 09/25/17 [History] Torsemide 20 mg PO DAILY 09/25/17 [History] amLODIPine Besylate [Amlodipine Besylate] 10 mg PO BEDTIME 09/25/17 [History] Ferrous Sulfate 324 mg PO DAILY 01/20/18 [History] Insulin Glarg,Human.Rec.Analog [Lantus Solostar] 35 units SUBCUT BEDTIME [History] Insulin Aspart [NovoLOG] 0 unit SUBCUT ASDIRECTED PRN 05/23/18 [History] Spironolactone [Aldactone] 25 mg PO BID 12/14/18 [History] hydroCHLOROthiazide [Hydrochlorothiazide] 25 mg PO DAILY 12/14/18 [History] Aspirin [Halfprin] 81 mg PO DAILY #30 tab.ec 12/15/18 [Rx] Sucralfate [Carafate] 1 gm PO QIDACANDBED #120 ml 04/05/19 [Rx] Metoclopramide HCl [Reglan] 10 mg PO TID PRN #20 tablet 06/17/19 [Rx] Metoprolol Succinate 2 tab PO DAILY 06/17/19 [History] Pantoprazole Sodium [Protonix] 40 mg PO DAILY 06/17/19 [History] atorvaSTATin [Lipitor] 80 mg PO BEDTIME 06/17/19 [History] Enalapril [Vasotec] 20 mg PO BEDTIME tablet 08/01/19 [Rx] Patient Handouts: Acute Kidney Injury, Adult, Gastroparesis, Hypertension Referrals: Fitz Infante MD [Physician] - 08/08/19 2:30 pm (Please arrive 20-30 minutes prior to appointment to have labs drawn) - Discharge Summary/Plan Comment DC Time >30 min.: No Discharge Summary/Plan Comment: Admitting Diagnoses: Abdominal pain N/V Gastroparesis Suspected hematemesis Discharge Diagnoses: Gastroparesis HTN urgency OTILIA Dehydration Other PMH: DM Type 1 Non compliance R RYANA Waqas was admitted due to recurrent abdominal pain with nausea and vomiting. There was some suspicion for hematemesis. Hgb remained stable during stay. He was treated with PPI. NO recurrent hematemesis was noted. Blood pressures were significantly elevated. He was unable to take his normal medications due to nausea and vomiting. He was started on Nicardipine gtt. This was continued for 2 days until he was able to tolerate PO medications. He was restarted on most of his medications. Due to OTILIA, he was started on lower dosing of Enalapril, 20 mg, and Hydralazine was held due to tachycardia. BP returned to 140/80s prior to discharge. He was encouraged to continue to follow with GI specialist, he reports PCP has reached out to [place] for this referral as [facility] denied his referral at this time. He is to return to PCP in 1 week for BMP and follow up to ensure blood pressure as remained stable of in renal function has improved more to increase Enalapril dosing. Waqas is requesting discharge home this afternoon. He is to return to ED or clinic if concerns should arise. - General Info Date of Service: 08/05/19 Admission Dx/Problem (Free Text: Admission Diagnosis/Problem Admission Diagnosis/Problem Intractable vomiting Subjective Update: He was weaned off gtt feeling well today. he is tolerating CL diet and is requesting discharge home. He feels he will get better when he is at home. No chest pain or SOB. abdominal pain has improved. - Review of Systems General: Reports: No Symptoms HEENT: Reports: No Symptoms Cardiovascular: Denies: Chest Pain Gastrointestinal: Reports: Abdominal Pain (mild 2/10) Genitourinary: Reports: No Symptoms. Denies: Dysuria, Frequency, Burning Skin: Reports: No Symptoms Neurological: Reports: No Symptoms Psychiatric: Reports: No Symptoms - Patient Data Vitals - Most Recent: Last Vital Signs Temp 98.6 F 08/01/19 15:00 Pulse 113 H 08/01/19 10:53 Resp 15 08/01/19 15:00 BP 163/107 H 08/01/19 15:20 Pulse Ox 97 08/01/19 15:00 Weight - Most Recent: 76.232 kg I&O - Last 24 hours: Intake & Output 08/01/19 08/01/19 08/01/19 06:59 14:59 22:59 Intake Total 2175 Output Total 650 Balance 1525 Lab Results - Last 24 hrs: Laboratory Results - last 24 hr 07/31/19 07/31/19 08/01/19 Range/Units 17:13 21:07 05:55 WBC 6.91 (4.0-11.0) K/uL RBC 4.62 (4.50-5.90) M/uL Hgb 9.8 L (13.0-17.0) g/dL Hct 31.2 L (38.0-50.0) % MCV 67.5 L (80.0-98.0) fL MCH 21.2 L (27.0-32.0) pg MCHC 31.4 (31.0-37.0) g/dL RDW Std Deviation 40.4 (28.0-62.0) fl RDW Coeff of Dania 16 H (11.0-15.0) % Plt Count 234 (150-400) K/uL MPV 10.40 (7.40-12.00) fL Neut % (Auto) 55.0 (48.0-80.0) % Lymph % (Auto) 33.4 (16.0-40.0) % Knox % (Auto) 10.9 (0.0-15.0) % Eos % (Auto) 0.3 (0.0-7.0) % Baso % (Auto) 0.4 (0.0-1.5) % Neut # (Auto) 3.8 (1.4-5.7) K/uL Lymph # (Auto) 2.3 (0.6-2.4) K/uL Knox # (Auto) 0.8 (0.0-0.8) K/uL Eos # (Auto) 0.0 (0.0-0.7) K/uL Baso # (Auto) 0.0 (0.0-0.1) K/uL Nucleated RBC % 0.0 /100WBC Nucleated RBCs # 0 K/uL Sodium (136-148) mmol/L Potassium (3.5-5.1) mmol/L Chloride (98-107) mmol/L Carbon Dioxide (21.0-32.0) mmol/L BUN (7.0-18.0) mg/dL Creatinine (0.8-1.3) mg/dL Est Cr Clr Drug Dosing mL/min Estimated GFR (MDRD) ml/min Glucose (74-106) mg/dL POC Glucose 125 H 211 H (60-110) mg/dL Calcium (8.5-10.1) mg/dL Total Bilirubin (0.2-1.0) mg/dL AST (15-37) IU/L ALT (14-63) IU/L Alkaline Phosphatase (46-116) U/L Total Protein (6.4-8.2) g/dL Albumin (3.4-5.0) g/dL Globulin (2.6-4.0) g/dL Albumin/Globulin Ratio (0.9-1.6) 08/01/19 08/01/19 08/01/19 Range/Units 05:55 07:31 11:26 WBC (4.0-11.0) K/uL RBC (4.50-5.90) M/uL Hgb (13.0-17.0) g/dL Hct (38.0-50.0) % MCV (80.0-98.0) fL MCH (27.0-32.0) pg MCHC (31.0-37.0) g/dL RDW Std Deviation (28.0-62.0) fl RDW Coeff of Dania (11.0-15.0) % Plt Count (150-400) K/uL MPV (7.40-12.00) fL Neut % (Auto) (48.0-80.0) % Lymph % (Auto) (16.0-40.0) % Knox % (Auto) (0.0-15.0) % Eos % (Auto) (0.0-7.0) % Baso % (Auto) (0.0-1.5) % Neut # (Auto) (1.4-5.7) K/uL Lymph # (Auto) (0.6-2.4) K/uL Knox # (Auto) (0.0-0.8) K/uL Eos # (Auto) (0.0-0.7) K/uL Baso # (Auto) (0.0-0.1) K/uL Nucleated RBC % /100WBC Nucleated RBCs # K/uL Sodium 140 (136-148) mmol/L Potassium 3.9 (3.5-5.1) mmol/L Chloride 106 (98-107) mmol/L Carbon Dioxide 23.4 (21.0-32.0) mmol/L BUN 22 H (7.0-18.0) mg/dL Creatinine 2.0 H (0.8-1.3) mg/dL Est Cr Clr Drug Dosing 52.53 mL/min Estimated GFR (MDRD) 46.9 ml/min Glucose 206 H (74-106) mg/dL POC Glucose 181 H 186 H (60-110) mg/dL Calcium 7.7 L (8.5-10.1) mg/dL Total Bilirubin 0.2 (0.2-1.0) mg/dL AST 31 (15-37) IU/L ALT 26 (14-63) IU/L Alkaline Phosphatase 83 (46-116) U/L Total Protein 5.7 L (6.4-8.2) g/dL Albumin 2.2 L (3.4-5.0) g/dL Globulin 3.5 (2.6-4.0) g/dL Albumin/Globulin Ratio 0.6 L (0.9-1.6) 08/01/19 Range/Units 13:02 WBC (4.0-11.0) K/uL RBC (4.50-5.90) M/uL Hgb (13.0-17.0) g/dL Hct (38.0-50.0) % MCV (80.0-98.0) fL MCH (27.0-32.0) pg MCHC (31.0-37.0) g/dL RDW Std Deviation (28.0-62.0) fl RDW Coeff of Dania (11.0-15.0) % Plt Count (150-400) K/uL MPV (7.40-12.00) fL Neut % (Auto) (48.0-80.0) % Lymph % (Auto) (16.0-40.0) % Knox % (Auto) (0.0-15.0) % Eos % (Auto) (0.0-7.0) % Baso % (Auto) (0.0-1.5) % Neut # (Auto) (1.4-5.7) K/uL Lymph # (Auto) (0.6-2.4) K/uL Knox # (Auto) (0.0-0.8) K/uL Eos # (Auto) (0.0-0.7) K/uL Baso # (Auto) (0.0-0.1) K/uL Nucleated RBC % /100WBC Nucleated RBCs # K/uL Sodium (136-148) mmol/L Potassium (3.5-5.1) mmol/L Chloride (98-107) mmol/L Carbon Dioxide (21.0-32.0) mmol/L BUN (7.0-18.0) mg/dL Creatinine (0.8-1.3) mg/dL Est Cr Clr Drug Dosing mL/min Estimated GFR (MDRD) ml/min Glucose (74-106) mg/dL POC Glucose 208 H (60-110) mg/dL Calcium (8.5-10.1) mg/dL Total Bilirubin (0.2-1.0) mg/dL AST (15-37) IU/L ALT (14-63) IU/L Alkaline Phosphatase (46-116) U/L Total Protein (6.4-8.2) g/dL Albumin (3.4-5.0) g/dL Globulin (2.6-4.0) g/dL Albumin/Globulin Ratio (0.9-1.6) FRANTZ Results - Last 24 hrs: Microbiology 08/01/19 10:20 Stool Occult Blood (FRANTZ) - Final Stool / Feces NEGATIVE OCCULT BLOOD REFERENCE RANGE: NEGATIVE Med Orders - Current: Current Medications Amlodipine Besylate (Norvasc) 10 mg PO BEDTIME [facility] Last Admin: 08/01/19 10:51 Dose: 10 mg Bisacodyl (Dulcolax) 10 mg RECTAL DAILY PRN PRN Reason: Constipation Last Admin: 08/01/19 09:44 Dose: 10 mg Docusate Sodium (Colace) 100 mg PO DAILY [facility] Last Admin: 08/01/19 10:51 Dose: 100 mg Doxazosin Mesylate (Cardura) 4 mg PO BEDTIME [facility] Last Admin: 08/01/19 15:20 Dose: 4 mg Enalapril Maleate (Vasotec) 20 mg PO BEDTIME [facility] Last Admin: 08/01/19 15:20 Dose: 20 mg Hydrochlorothiazide (Hydrochlorothiazide) 25 mg PO DAILY [facility] Last Admin: 08/01/19 10:53 Dose: 25 mg Hydromorphone HCl (Dilaudid) 0.5 mg IVPUSH Q4H PRN PRN Reason: Pain Last Admin: 07/31/19 22:07 Dose: 0.5 mg Pantoprazole Sodium 40 mg/ (Sodium Chloride) 10 mls @ 300 mls/hr IV Q12H [facility]HAEL Last Admin: 08/01/19 08:08 Dose: 300 mls/hr Insulin Aspart (Novolog) 0 unit SUBCUT QIDACANDBED [facility]; Protocol Last Admin: 08/01/19 13:08 Dose: 4 units Insulin Glargine (Lantus Solostar) 10 units SUBCUT BEDTIME [facility] Last Admin: 07/31/19 21:16 Dose: 10 units Lorazepam (Ativan) 1 mg IVPUSH Q6H PRN PRN Reason: Anxiety Last Admin: 08/01/19 15:35 Dose: 1 mg Metoclopramide HCl (Reglan) 10 mg IVPUSH Q8H [facility] Last Admin: 08/01/19 15:39 Dose: 10 mg Metoprolol Succinate (Toprol Xl) 200 mg PO DAILY [facility] Last Admin: 08/01/19 10:53 Dose: 200 mg Promethazine HCl (Phenergan) 12.5 mg IM Q6H PRN PRN Reason: Nausea/Vomiting Last Admin: 07/31/19 22:12 Dose: 12.5 mg Sodium Chloride (Saline Flush) 10 ml FLUSH ASDIRECTED PRN PRN Reason: Keep Vein Open Last Admin: 07/30/19 06:08 Dose: 10 ml Sodium Chloride (Saline Flush) 2.5 ml FLUSH ASDIRECTED PRN PRN Reason: Keep Vein Open Last Admin: 07/30/19 06:08 Dose: 2.5 ml Spironolactone (Aldactone) 25 mg PO BID [facility] Last Admin: 08/01/19 10:52 Dose: 25 mg Torsemide (Demadex) 20 mg PO DAILY [facility] Last Admin: 08/01/19 10:53 Dose: 20 mg Discontinued Medications Acetaminophen (Tylenol) 650 mg PO Q4H PRN PRN Reason: Pain (Mild 1-3)/fever Hydrocodone Bitart/Acetaminophen (Mentcle 325-5 Mg) 1 tab PO Q4H PRN PRN Reason: Pain (moderate 4-6) Amlodipine Besylate (Norvasc) 10 mg PO BEDTIME [facility] Diazepam (Valium) 5 mg IV ONETIME ONE Stop: 07/30/19 19:48 Last Admin: 07/30/19 20:16 Dose: 5 mg Diphenhydramine HCl (Benadryl) 50 mg IVPUSH ONETIME ONE Stop: 07/30/19 05:51 Last Admin: 07/30/19 06:06 Dose: 50 mg Diphenhydramine HCl (Benadryl) 25 mg IVPUSH ONETIME ONE Stop: 07/30/19 12:04 Last Admin: 07/30/19 12:13 Dose: 25 mg Diphenhydramine HCl (Benadryl) 50 mg IVPUSH ONETIME ONE Stop: 07/31/19 08:57 Last Admin: 07/31/19 10:03 Dose: Not Given Enoxaparin Sodium (Lovenox) 40 mg SUBCUT Q24H [facility] Last Admin: 07/30/19 08:05 Dose: Not Given Hydralazine HCl (Apresoline) 10 mg IVPUSH ONETIME ONE Stop: 07/30/19 06:20 Last Admin: 07/30/19 06:25 Dose: 10 mg Hydromorphone HCl (Dilaudid) 1 mg IVPUSH Q3H PRN PRN Reason: Pain Hydromorphone HCl (Dilaudid) 1 mg IVPUSH Q3H PRN PRN Reason: Pain Last Admin: 07/31/19 07:40 Dose: 1 mg Sodium Chloride (Normal Saline) 1,000 mls @ 999 mls/hr IV STAT ONE Stop: 07/30/19 06:50 Last Admin: 07/30/19 06:08 Dose: 999 mls/hr Sodium Chloride (Normal Saline) 1,000 mls @ 999 mls/hr IV BOLUS MICHAEL Stop: 07/30/19 08:31 Sodium Chloride (Normal Saline) 1,000 mls @ 999 mls/hr IV ONETIME ONE Stop: 07/30/19 10:30 Last Admin: 07/30/19 09:34 Dose: 999 mls/hr Nicardipine HCl (Cardene 20 Mg In Ns 200 Ml) 20 mg in 200 mls @ 50 mls/hr IV TITRATE MICHAEL; Protocol Last Titration: 07/31/19 04:50 Dose: Infused Insulin Human Regular 100 unit (/ Sodium Chloride) 100 mls @ 4 mls/hr IV TITRATE MICHAEL; Protocol Last Titration: 07/31/19 00:51 Dose: 3.8 unit/hr, 3.8 mls/hr Multivitamins/Minerals 10 ml/Thiamine HCl 100 mg/ Folic Acid 1 mg/ Sodium Chloride 1,011.2 mls @ 125 mls/hr IV ONETIME ONE Stop: 07/31/19 03:53 Last Admin: 07/30/19 20:15 Dose: 125 mls/hr Dextrose/Sodium Chloride (Dextrose 5%-Normal Saline) 1,000 mls @ 200 mls/hr IV ASDIRECTED MICHAEL Last Admin: 07/31/19 00:41 Dose: 200 mls/hr Sodium Chloride (Normal Saline) 1,000 mls @ 150 mls/hr IV ASDIRECTED [facility] Last Admin: 07/31/19 09:26 Dose: 150 mls/hr Lactated Ringer's (Ringers, Lactated) 1,000 mls @ 999 mls/hr IV .BOLUS ONE Stop: 07/31/19 11:01 Last Admin: 07/31/19 10:05 Dose: 999 mls/hr Lactated Ringer's (Ringers, Lactated) 1,000 mls @ 125 mls/hr IV ASDIRECTED [facility] Last Admin: 08/01/19 11:27 Dose: 125 mls/hr Nicardipine HCl (Cardene 20 Mg In Ns 200 Ml) 20 mg in 200 mls @ 50 mls/hr IV TITRATE MICHAEL; Protocol Last Titration: 07/31/19 23:50 Dose: Infused Insulin Aspart (Novolog) 0 unit SUBCUT TIDAC [facility]; Protocol Last Admin: 07/30/19 12:36 Dose: Not Given Insulin Aspart (Novolog) 0 unit SUBCUT QID [facility]; Protocol Last Admin: 08/01/19 08:14 Dose: Not Given Insulin Glargine (Lantus Solostar) 10 units SUBCUT DAILY [facility] Last Admin: 07/31/19 10:04 Dose: Not Given Insulin Human Regular (Novolin R) 0 unit SUBCUT TIDAC [facility]; Protocol Last Admin: 07/30/19 18:20 Dose: 10 units Labetalol HCl (Normodyne) 20 mg IVPUSH ONETIME ONE; Protocol Stop: 07/30/19 10:03 Last Admin: 07/30/19 10:17 Dose: 20 mg Labetalol HCl (Normodyne) 20 mg IV Q4H PRN; Protocol PRN Reason: Hypertension Labetalol HCl (Normodyne) 10 mg IVPUSH Q6H PRN; Protocol PRN Reason: Hypertension Last Admin: 07/31/19 14:14 Dose: 10 mg Lorazepam (Ativan) 1 mg IVPUSH ONETIME ONE Stop: 07/30/19 05:51 Last Admin: 07/30/19 06:07 Dose: 1 mg Lorazepam (Ativan) 2 mg IVPUSH ONETIME ONE Stop: 07/30/19 12:04 Last Admin: 07/30/19 12:16 Dose: 2 mg Lorazepam (Ativan) 2 mg IVPUSH ONETIME ONE Stop: 07/31/19 08:57 Last Admin: 07/31/19 10:03 Dose: Not Given Metoclopramide HCl (Reglan) 10 mg IV ONETIME ONE Stop: 07/30/19 05:51 Last Admin: 07/30/19 06:05 Dose: 10 mg Metoclopramide HCl (Reglan) 5 mg IVPUSH Q6H [facility] Last Admin: 07/31/19 03:59 Dose: 5 mg Metoclopramide HCl (Reglan) 10 mg IVPUSH Q4H PRN PRN Reason: Nausea/Vomiting Last Admin: 07/31/19 04:45 Dose: 10 mg Morphine Sulfate (Morphine) 2 mg IVPUSH Q4H PRN PRN Reason: Pain Last Admin: 07/30/19 08:29 Dose: 2 mg Morphine Sulfate (Morphine) 2 mg IVPUSH ONETIME ONE Stop: 07/30/19 12:04 Last Admin: 07/30/19 12:19 Dose: 2 mg Ondansetron HCl (Zofran Odt) 4 mg PO Q4H PRN PRN Reason: nausea, able to take PO Ondansetron HCl (Zofran) 4 mg IVPUSH Q4H PRN PRN Reason: Nausea Last Admin: 07/31/19 01:35 Dose: 4 mg Pantoprazole Sodium (Protonix Iv) 80 mg IVPUSH .BOLUS ONE Stop: 07/30/19 05:53 Last Admin: 07/30/19 06:07 Dose: 80 mg - Exam General: Reports: Alert, Oriented Lungs: Reports: Clear to Auscultation, Normal Respiratory Effort Cardiovascular: Reports: Regular Rate, Regular Rhythm GI/Abdominal Exam: Normal Bowel Sounds, Soft, Non-Tender Neurological: Reports: No New Focal Deficit Psy/Mental Status: Reports: Alert, Normal Affect, Normal Mood
[2019-08-01 18:11] VITALS: BP 141/98
--- NOTE | 2019-08-02 14:10 | US ---
EXAM DATE: 07/30/19 PATIENT'S AGE: 34 Renal ultrasound with renal arterial Doppler: Multiple real-time images the kidneys were obtained as well as renal arterial Doppler of the renal arteries. Comparison: Prior renal ultrasound study of 04/17/06. Kidneys show no hydronephrosis or mass. Maximum systolic velocity measurement on the right side is 48.6 cm/s and on the left side 60.6 cm/s. These velocity measurements are within normal limits. Right kidney length: 11.3 cm Left kidney length: 12.6 cm Impression: 1. No abnormality is seen on renal ultrasound exam. 2. No evidence of hemodynamic significant renal artery stenosis. Diagnostic code #1 Report Signed by Proxy. INOCENTE
--- NOTE | 2019-08-03 13:40 | ECHO ---
EXAM DATE: 07/30/19 PATIENT'S AGE: 34 The echocardiogram report can be seen in this patient's EMR (Electronic Medical Record) in the Reports section. The report has also been scanned into PACs. INOCENTE
== END 2019-08-01 17:25 | disposition home or self-care (01) | DRG 304 ==
LOC: MW.ED 05:37 → MW.MS 06:53 → MW.ICU 11:53 → OBSVTOIN 15:00
PROVIDERS: ADMIT Student in an Organized Health Care Education/Training Program; ATTEND Student in an Organized Health Care Education/Training Program
DX: I16.1 Hypertensive emergency (principal); E10.10 Type 1 diabetes mellitus with ketoacidosis without coma; N17.9 Acute kidney failure, unspecified; N18.9 Chronic kidney disease, unspecified; E10.43 Type 1 diabetes mellitus with diabetic autonomic (poly)neuropathy; E10.42 Type 1 diabetes mellitus with diabetic polyneuropathy; E10.21 Type 1 diabetes mellitus with diabetic nephropathy; E78.00 Pure hypercholesterolemia, unspecified; K31.84 Gastroparesis; F41.9 Anxiety disorder, unspecified; Z86.14 Personal history of Methicillin resistant Staphylococcus aureus infection; N18.3 Chronic kidney disease, stage 3 (moderate); Z89.511 Acquired absence of right leg below knee; D63.1 Anemia in chronic kidney disease; Z87.11 Personal history of peptic ulcer disease; Z86.39 Personal history of other endocrine, nutritional and metabolic disease; Z86.73 Personal history of transient ischemic attack (TIA), and cerebral infarction without residual deficits; Z87.19 Personal history of other diseases of the digestive system; Z79.4 Long term (current) use of insulin; I12.9 Hypertensive chronic kidney disease with stage 1 through stage 4 chronic kidney disease, or unspecified chronic kidney disease; Z79.899 Other long term (current) drug therapy; Z79.82 Long term (current) use of aspirin; Z91.013 Allergy to seafood; Z88.8 Allergy status to other drugs, medicaments and biological substances; Z88.0 Allergy status to penicillin; Z91.018 Allergy to other foods; H54.7 Unspecified visual loss; K21.9 Gastro-esophageal reflux disease without esophagitis; E10.22 Type 1 diabetes mellitus with diabetic chronic kidney disease; Z91.14 Patient's other noncompliance with medication regimen; R45.1 Restlessness and agitation; D53.9 Nutritional anemia, unspecified; I73.9 Peripheral vascular disease, unspecified
CPT/HCPCS: 36415; 74019; 74176; 80053; 80061; 80305; 81001; 82009; 82150; 82728 ×2; 82962 ×3; 83020; 83021; 83036; 83550; 83690; 84443; 85014; 85018; 85025; 85610; 96361; 96374; 96375; 99285; C9113; J0360; J1200 ×2; J1815; J2060 ×2; J2270 ×2; J2405; J2765 ×2; J3490; J7030 ×2; 76775; 76775-26; 80048; 82272; 93306; 93976; 93976-26; A9270-GY; J1170; J2550; J3360; J3411; J7042; J7050; J7120

== ENCOUNTER 2019-08-15 23:12 | Emergency (ER) | payer MEDICAID ==
[2019-08-15] MEDS ORDERED: LORazepam 2 MG/ML SDV IVPUSH ONE (23:27)
[2019-08-15] MEDS ORDERED: Ondansetron 4 MG/2 ML SDV IVPUSH ONE (23:27)
[2019-08-15] MEDS ORDERED: Pantoprazole 40 MG Vial IV ONE (23:27)
[2019-08-15] MEDS ORDERED: HYDROmorphone 1 MG/ML Syringe IVPUSH ONE (23:27)
[2019-08-15] MEDS ORDERED: Sodium Chloride 0.9% 20 ML SDV FLUSH STA (23:28)
--- NOTE | 2019-08-15 23:32 | EDM.PDOC ---
ED HPI GENERAL MEDICAL PROBLEM - General Chief Complaint: Abdominal Pain Stated Complaint: AMB Time Seen by Provider: 08/15/19 23:22 - History of Present Illness INITIAL COMMENTS - FREE TEXT/NARRATIVE: HISTORY AND PHYSICAL: History of present illness: Patient 34-year-old black male with past medical history significant for gastroparesis intractable vomiting and multiple episodes of upper GI bleeding with coffee-ground emesis and intractable abdominal pain also start hypertension hypercholesterolemia right BKA right eye blindness been admitted here multiple times and has also been transferred on prior occasions. He presents tonight with chief complaint of abdominal pain nausea with coffee- ground emesis he denies chest pain shortness of breath fever chills or other concern Review of systems: As per history of present illness and below otherwise all systems reviewed and negative. Past medical history: As per history of present illness and as reviewed below otherwise noncontributory. Surgical history: As per history of present illness and as reviewed below otherwise noncontributory. Social history: No reported history of drug or alcohol abuse. Family history: As per history of present illness and as reviewed below otherwise noncontributory. Physical exam: HEENT: Atraumatic, normocephalic, , mild conjunctival pallor or scleral icterus , mucous membranes moist, throat clear, neck supple, nontender, trachea midline. Lungs: Clear to auscultation, breath sounds equal bilaterally, chest nontender. Heart: S1S2, regular, Abdomen: Soft, nondistended, nontender. Negative for masses or hepatosplenomegaly. Negative for costovertebral tenderness. Pelvis: Stable nontender. Genitourinary: Deferred. Rectal: Deferred. Extremities:Right BKA. Neuro: Awake, alert, oriented. Follows commands and moves all extremities and grossly nonfocal exam Diagnostics: CBC CMP PT/INR troponin chest x-ray EKG Therapeutics: IV O2 monitor Ativan 1 mg IV Zofran 4 mg IV Protonix 80 mg IV Dilaudid 1 mg IV Impression: #1 chronic abdominal pain #2 history gastroparesis #3 upper GI bleed 4 history of hypertension #5 history of hypercholesterolemia #6 history of medical noncompliance Definitive disposition and diagnosis as appropriate pending reevaluation and review of above. abd Pain Score (Numeric/FACES): 8 - Related Data Allergies Allergy/AdvReac Type Severity Reaction Status Date / Time shrimp Allergy Severe Swelling Verified 08/15/19 23:18 iodine Allergy Unknown Anaphylactic Verified 08/15/19 23:18 Shock Penicillins Allergy Unknown Anaphylactic Verified 08/15/19 23:18 Shock shellfish derived Allergy Anaphylactic Verified 08/15/19 23:18 Shock gluten Allergy Unknown Muscle Uncoded 08/15/19 23:18 Aches Home Meds: Home Meds Doxazosin [Cardura] 4 mg PO BEDTIME 09/25/17 [History] Torsemide 20 mg PO DAILY 09/25/17 [History] amLODIPine Besylate [Amlodipine Besylate] 10 mg PO BEDTIME 09/25/17 [History] Ferrous Sulfate 324 mg PO DAILY 01/20/18 [History] Insulin Glarg,Human.Rec.Analog [Lantus Solostar] 35 units SUBCUT BEDTIME [History] Insulin Aspart [NovoLOG] 0 unit SUBCUT ASDIRECTED PRN 05/23/18 [History] Spironolactone [Aldactone] 25 mg PO BID 12/14/18 [History] hydroCHLOROthiazide [Hydrochlorothiazide] 25 mg PO DAILY 12/14/18 [History] Aspirin [Halfprin] 81 mg PO DAILY #30 tab.ec 12/15/18 [Rx] Sucralfate [Carafate] 1 gm PO QIDACANDBED #120 ml 04/05/19 [Rx] Metoclopramide HCl [Reglan] 10 mg PO TID PRN #20 tablet 06/17/19 [Rx] Metoprolol Succinate 2 tab PO DAILY 06/17/19 [History] Pantoprazole Sodium [Protonix] 40 mg PO DAILY 06/17/19 [History] atorvaSTATin [Lipitor] 80 mg PO BEDTIME 06/17/19 [History] Enalapril [Vasotec] 20 mg PO BEDTIME tablet 08/01/19 [Rx] Past Medical History - Past Health History Medical/Surgical History: Denies Medical/Surgical History HEENT History: Reports: Impaired Vision Other HEENT History: blind right eye Cardiovascular History: Reports: Hypertension Respiratory History: Reports: None Gastrointestinal History: Reports: Gastritis, GERD, Hiatal Hernia, Other (See Below) Other Gastrointestinal History: h/o gastric ulcers, h/o hiatal hernia; gastroparesis Genitourinary History: Reports: Chronic Renal Insuffiency, Diabetic Nephropathy Musculoskeletal History: Reports: Amputation Neurological History: Reports: Neuropathy, Peripheral Other Neuro History: stroke 3 months ago Psychiatric History: Reports: Anxiety Endocrine/Metabolic History: Reports: Diabetes, Type I Other Endocrine/Metabolic History: brittle diabetic. 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 - Past Surgical History Head Surgeries/Procedures: Reports: None Social & Family History - Family History Family Medical History: Noncontributory Cardiac: Reports: High Cholesterol, Hypertension OBGYN: Reports: Neurological: Reports: None - Tobacco Use Smoking Status *Q: Never Smoker - Caffeine Use Caffeine Use: Reports: None Other Caffeine Use: daily Caffeine Use Comment: patient is uncooperated - Recreational Drug Use Recreational Drug Use: No - Living Situation & Occupation Living situation: Reports: Single Occupation: Employed (Currently unemployed.) ED ROS GENERAL - Review of Systems Review Of Systems: Comprehensive ROS is negative, except as noted in HPI. ED EXAM, GENERAL - Physical Exam Exam: See Below (See dictation) Course - Vital Signs Last Recorded V/S: Last Vital Signs Temp 35.6 C 08/15/19 23:14 Pulse 108 H 08/15/19 23:51 Resp 16 08/15/19 23:51 BP 157/93 H 08/15/19 23:51 Pulse Ox 93 L 08/15/19 23:51 - Orders/Labs/Meds Orders: Active Orders 24 hr Category Date Time Status Blood Glucose Check, Bedside [RC] ONETIME Care 08/15/19 23:25 Active Cardiac Monitoring [RC] . DIRECTED Care 08/15/19 23:26 Active EKG Documentation Completion [RC] STAT Care 08/15/19 23:25 Active Chest 1V Frontal [CR] Stat Exams 08/15/19 23:26 Ordered CBC WITH AUTO DIFF [HEME] Stat Lab 08/15/19 23:36 Results TROPONIN I [CHEM] Stat Lab 08/15/19 23:36 Received TYPE AND SCREEN [BBK] Stat Lab 08/15/19 23:36 Received Sodium Chloride 0.9% [Normal Saline] 1,000 ml Med 08/15/19 23:36 Active IV NOW Medication Orders Sodium Chloride (Normal Saline) 1,000 mls @ 999 mls/hr IV NOW STA Stop: 08/16/19 00:36 Last Admin: 08/15/19 23:37 Dose: 999 mls/hr Labs: Laboratory Tests 08/15/19 08/15/19 08/15/19 Range/Units 23:22 23:36 23:36 WBC 10.03 (4.0-11.0) K/uL RBC 4.60 (4.50-5.90) M/uL Hgb 9.9 L (13.0-17.0) g/dL Hct 30.4 L (38.0-50.0) % MCV 66.1 L (80.0-98.0) fL MCH 21.5 L (27.0-32.0) pg MCHC 32.6 (31.0-37.0) g/dL RDW Std Deviation 37.4 (28.0-62.0) fl RDW Coeff of Dania 16 H (11.0-15.0) % Plt Count 481 H (150-400) K/uL MPV 10.50 (7.40-12.00) fL Add Manual Diff YES INR Sodium 141 (136-148) mmol/L Potassium 3.8 (3.5-5.1) mmol/L Chloride 103 (98-107) mmol/L Carbon Dioxide 24.3 (21.0-32.0) mmol/L BUN 30 H (7.0-18.0) mg/dL Creatinine 2.3 H (0.8-1.3) mg/dL Est Cr Clr Drug Dosing 45.68 mL/min Estimated GFR (MDRD) 32.9 ml/min Glucose 367 H (74-106) mg/dL POC Glucose 437 H (60-110) mg/dL Calcium 8.7 (8.5-10.1) mg/dL Total Bilirubin 0.2 (0.2-1.0) mg/dL AST 25 (15-37) IU/L ALT 38 (14-63) IU/L Alkaline Phosphatase 108 (46-116) U/L Total Protein 6.8 (6.4-8.2) g/dL Albumin 2.7 L (3.4-5.0) g/dL Globulin 4.1 H (2.6-4.0) g/dL Albumin/Globulin Ratio 0.7 L (0.9-1.6) 08/15/19 Range/Units 23:36 WBC (4.0-11.0) K/uL RBC (4.50-5.90) M/uL Hgb (13.0-17.0) g/dL Hct (38.0-50.0) % MCV (80.0-98.0) fL MCH (27.0-32.0) pg MCHC (31.0-37.0) g/dL RDW Std Deviation (28.0-62.0) fl RDW Coeff of Dania (11.0-15.0) % Plt Count (150-400) K/uL MPV (7.40-12.00) fL Add Manual Diff INR 1.01 Sodium (136-148) mmol/L Potassium (3.5-5.1) mmol/L Chloride (98-107) mmol/L Carbon Dioxide (21.0-32.0) mmol/L BUN (7.0-18.0) mg/dL Creatinine (0.8-1.3) mg/dL Est Cr Clr Drug Dosing mL/min Estimated GFR (MDRD) ml/min Glucose (74-106) mg/dL POC Glucose (60-110) mg/dL Calcium (8.5-10.1) mg/dL Total Bilirubin (0.2-1.0) mg/dL AST (15-37) IU/L ALT (14-63) IU/L Alkaline Phosphatase (46-116) U/L Total Protein (6.4-8.2) g/dL Albumin (3.4-5.0) g/dL Globulin (2.6-4.0) g/dL Albumin/Globulin Ratio (0.9-1.6) Meds: Medications Generic Name Dose Route Start Last Admin Trade Name Freq PRN Reason Stop Dose Admin Sodium Chloride 1,000 mls @ 999 mls/hr 08/15/19 23:36 08/15/19 23:37 Normal Saline IV 08/16/19 00:36 999 mls/hr NOW STA Administration Discontinued Medications Generic Name Dose Route Start Last Admin Trade Name Freq PRN Reason Stop Dose Admin Hydromorphone HCl 1 mg 08/15/19 23:27 08/15/19 23:35 Dilaudid IVPUSH 08/15/19 23:28 1 mg ONETIME ONE Administration Lorazepam 1 mg 08/15/19 23:27 08/15/19 23:36 Ativan IVPUSH 08/15/19 23:28 1 mg ONETIME ONE Administration Ondansetron HCl 4 mg 08/15/19 23:27 08/15/19 23:35 Zofran IVPUSH 08/15/19 23:28 4 mg ONETIME ONE Administration Pantoprazole Sodium 80 mg 08/15/19 23:27 08/15/19 23:35 Protonix Iv IV 08/15/19 23:28 80 mg NOW ONE Administration Sodium Chloride 20 ml 08/15/19 23:28 08/15/19 23:35 Normal Saline FLUSH 08/15/19 23:29 20 ml NOW STA Administration Departure - Departure Time of Disposition: 00:07 Disposition: DC/Tfer to Acute Hospital 02 Condition: Good Clinical Impression: Vomiting, Gastroparesis GI hemorrhage Qualifiers: GI bleed type/associated pathology: unspecified gastrointestinal hemorrhage type Qualified Code(s): K92.2 - Gastrointestinal hemorrhage, unspecified Hypertension Qualifiers: Hypertension type: essential hypertension Qualified Code(s): I10 - Essential ( primary) hypertension - Discharge Information Forms: ED Department Discharge - My Orders Last 24 Hours: My Active Orders 08/15/19 23:25 Blood Glucose Check, Bedside [RC] ONETIME EKG Documentation Completion [RC] STAT 08/15/19 23:26 Cardiac Monitoring [RC] . DIRECTED Chest 1V Frontal [CR] Stat 08/15/19 23:36 CBC WITH AUTO DIFF [HEME] Stat TROPONIN I [CHEM] Stat TYPE AND SCREEN [BBK] Stat Sodium Chloride 0.9% [Normal Saline] 1,000 ml IV NOW - Assessment/Plan Last 24 Hours: My Active Orders 08/15/19 23:25 Blood Glucose Check, Bedside [RC] ONETIME EKG Documentation Completion [RC] STAT 08/15/19 23:26 Cardiac Monitoring [RC] . DIRECTED Chest 1V Frontal [CR] Stat 08/15/19 23:36 CBC WITH AUTO DIFF [HEME] Stat TROPONIN I [CHEM] Stat TYPE AND SCREEN [BBK] Stat Sodium Chloride 0.9% [Normal Saline] 1,000 ml IV NOW
[2019-08-15] MEDS ORDERED: Sodium Chloride 0.9% 1,000 ML IV STA (23:36)
[2019-08-16 00:03] LABS: CARBON DIOXIDE,CO2 24.3 mmol/L (21.0-32.0); POTASSIUM,K 3.8 mmol/L (3.5-5.1)
[2019-08-16 00:26] VITALS: BP 120/75; PULSE 100
--- NOTE | 2019-08-16 01:36 | CR ---
Indication: Pain Technique: Chest 1 view Comparison: None Findings/Impression: Normal cardiomediastinal silhouette. Clear lungs and pleural spaces. No acute osseous abnormality. No free air. Dictated by Belinda Bull MD @ Aug 16 2019 1:35AM Signed by Dr. Belinda Bull @ Aug 16 2019 1:35AM
== END 2019-08-16 01:15 ==
LOC: MW.ED 23:12
DX: K92.2 Gastrointestinal hemorrhage, unspecified (principal); E10.22 Type 1 diabetes mellitus with diabetic chronic kidney disease; I12.9 Hypertensive chronic kidney disease with stage 1 through stage 4 chronic kidney disease, or unspecified chronic kidney disease; N18.9 Chronic kidney disease, unspecified; D63.1 Anemia in chronic kidney disease; E10.43 Type 1 diabetes mellitus with diabetic autonomic (poly)neuropathy; K31.84 Gastroparesis; R11.10 Vomiting, unspecified; Z91.14 Patient's other noncompliance with medication regimen; E78.00 Pure hypercholesterolemia, unspecified; K21.9 Gastro-esophageal reflux disease without esophagitis; F41.9 Anxiety disorder, unspecified; E10.21 Type 1 diabetes mellitus with diabetic nephropathy; E10.42 Type 1 diabetes mellitus with diabetic polyneuropathy; E10.10 Type 1 diabetes mellitus with ketoacidosis without coma; Z88.0 Allergy status to penicillin; Z91.048 Other nonmedicinal substance allergy status; Z91.018 Allergy to other foods
CPT/HCPCS: 36415; 71045; 80053; 82962; 84484; 85025; 85610; 86850; 86900; 86901; 93005; 96374; 96375; 99285; C9113; J1170; J2060; J2405; J7030

== ENCOUNTER 2019-08-30 21:32 | Observation (INO) | payer MEDICAID ==
[2019-08-30] MEDS ORDERED: Ondansetron 4 MG/2 ML SDV IVPUSH ONE (21:39)
[2019-08-30] MEDS ORDERED: diphenhydrAMINE 50 MG/ML SDV IVPUSH ONE (21:39)
[2019-08-30] MEDS ORDERED: Metoclopramide 10 MG/2 ML SDV IV ONE (21:39)
[2019-08-30] MEDS ORDERED: Sodium Chloride 0.9% 1,000 ML IV ONE (21:39)
[2019-08-30] MEDS ORDERED: Sodium Chloride 0.9% 10 ML Syringe FLUSH PRN (21:39)
[2019-08-30] MEDS ORDERED: LORazepam 2 MG/ML SDV IVPUSH ONE (21:39)
[2019-08-30] MEDS ORDERED: Sodium Chloride 0.9% 2.5 ML Syringe FLUSH PRN (21:39)
[2019-08-30] MEDS ORDERED: Pantoprazole 80 MG in Sodium Chloride 0.9% 20 ML IVPUSH ONE (21:40)
[2019-08-30] MEDS ORDERED: Pantoprazole 80 MG in Sodium Chloride 0.9% 100 ML IV SCH (21:45)
--- NOTE | 2019-08-30 21:47 | EDM.PDOC ---
ED HPI GENERAL MEDICAL PROBLEM - General Chief Complaint: Gastrointestinal Problem Stated Complaint: VOMITING Time Seen by Provider: 08/30/19 21:36 - History of Present Illness INITIAL COMMENTS - FREE TEXT/NARRATIVE: HISTORY AND PHYSICAL: History of present illness: Patient is a 34-year-old male who is well-known to this emergency department and this provider for poorly controlled hypertension poorly controlled diabetes and frequent visits for gastroparesis, coffee-ground emesis and elevated blood sugars with hypertension and was had multiple admissions here, the last time he was here in the ED was on August 15 and he was transferred for the same problems; he presents tonight with similar complaints of abdominal pain and vomiting that started at 8:00, an hour and a half ago with coffee-ground emesis. He says that his blood sugar has been running in the 300s although EMS reported to be much higher and he denies black or bloody stools and says that his stool color has been normal in character and color. He complains of upper abdominal pain which is his usual presentation, and no lower abdominal pain and no recent trauma. He has no urinary complaints or flank pain no fevers chills chest pain or shortness of breath and no upper respiratory symptoms. He tells me that he was able to take his blood pressure medications this morning but he has not had any evening doses. EMS was unable to obtain IV access so he received Zofran 4 mg IM in route. I asked the patient when he was transferred to the beginning of the month to [facility] whether or not GI saw him and if he had an endoscopy and he says he did not they only managed his diabetes blood pressure and symptomatically his GI problems. Review of systems: As per history of present illness and below otherwise all systems reviewed and negative. Past medical history: As per history of present illness and as reviewed below otherwise noncontributory. Surgical history: As per history of present illness and as reviewed below otherwise noncontributory. Social history: No reported history of drug or alcohol abuse. Family history: As per history of present illness and as reviewed below otherwise noncontributory. Physical exam: general: Well-developed well-nourished man who is nontoxic and is vomiting small amounts of dark fluid but no clots. Vital signs are noted by me. He is very anxious and exaggerated in the room and keeps saying over and over "please help me". HEENT: Atraumatic, normocephalic, pupils reactive, negative for conjunctival pallor or scleral icterus, mucous membranes moist, throat clear, neck supple, nontender, trachea midline. There is no smell of alcohol or ketones on the patient's breath Lungs: Clear to auscultation, breath sounds equal bilaterally, chest nontender. Heart: S1S2, regular rhythm and tachycardic rate on my evaluation, negative for clicks, rubs, or JVD. Abdomen: Soft, nondistended, Fuhs upper abdominal tenderness on palpation without localization right or left and no lower abdominal tenderness. Bowel sounds are hypoactive.. Negative for masses or hepatosplenomegaly. Negative for costovertebral tenderness. Pelvis: Stable nontender. Genitourinary: Deferred. Rectal: Deferred. Extremities: Atraumatic, negative for cords or calf pain. Neurovascular unremarkable. Patient has a right BKA and all other extremities have full range of motion without defects or deficits Neuro: Awake, alert, oriented. Cranial nerves II through XII unremarkable. Cerebellum unremarkable. Motor and sensory unremarkable throughout. Exam nonfocal. Diagnostics: EKG abdominal series chest x-ray, CBC CMP UA with reflex UDS serum ketones amylase lipase INR type and screen Therapeutics: IV O2 monitor IV fluids Protonix bolus Protonix drip Zofran Reglan Benadryl Ativan hydralazine insulin subcutaneous 2317: Patient is sleeping comfortably after medications as given above. His blood pressure has come down nicely with the medications. I have discussed this case with our hospitalist Dr. Patton who agrees with observation admission to the floor as he is not acidotic but he is dehydrated. Impression: Persistent hyperglycemia, poorly controlled hypertension, gastroparesis with coffee-ground emesis acute on chronic Definitive disposition and diagnosis as appropriate pending reevaluation and review of above. abdomen Pain Score (Numeric/FACES): 10 - Related Data Allergies Allergy/AdvReac Type Severity Reaction Status Date / Time shrimp Allergy Severe Swelling Verified 08/15/19 23:18 iodine Allergy Unknown Anaphylactic Verified 08/15/19 23:18 Shock Penicillins Allergy Unknown Anaphylactic Verified 08/15/19 23:18 Shock shellfish derived Allergy Anaphylactic Verified 08/15/19 23:18 Shock gluten Allergy Unknown Muscle Uncoded 08/15/19 23:18 Aches Home Meds: Home Meds Doxazosin [Cardura] 4 mg PO BEDTIME 09/25/17 [History] Torsemide 20 mg PO DAILY 09/25/17 [History] amLODIPine Besylate [Amlodipine Besylate] 10 mg PO BEDTIME 09/25/17 [History] Ferrous Sulfate 324 mg PO DAILY 01/20/18 [History] Insulin Glarg,Human.Rec.Analog [Lantus Solostar] 35 units SUBCUT BEDTIME [History] Insulin Aspart [NovoLOG] 0 unit SUBCUT ASDIRECTED PRN 05/23/18 [History] Spironolactone [Aldactone] 25 mg PO BID 12/14/18 [History] hydroCHLOROthiazide [Hydrochlorothiazide] 25 mg PO DAILY 12/14/18 [History] Aspirin [Halfprin] 81 mg PO DAILY #30 tab.ec 12/15/18 [Rx] Sucralfate [Carafate] 1 gm PO QIDACANDBED #120 ml 04/05/19 [Rx] Metoclopramide HCl [Reglan] 10 mg PO TID PRN #20 tablet 06/17/19 [Rx] Metoprolol Succinate 2 tab PO DAILY 06/17/19 [History] Pantoprazole Sodium [Protonix] 40 mg PO DAILY 06/17/19 [History] atorvaSTATin [Lipitor] 80 mg PO BEDTIME 06/17/19 [History] Enalapril [Vasotec] 20 mg PO BEDTIME tablet 08/01/19 [Rx] Past Medical History - Past Health History Medical/Surgical History: Denies Medical/Surgical History HEENT History: Reports: Impaired Vision Other HEENT History: blind right eye Cardiovascular History: Reports: Hypertension Respiratory History: Reports: None Gastrointestinal History: Reports: Gastritis, GERD, Hiatal Hernia, Other (See Below) Other Gastrointestinal History: h/o gastric ulcers, h/o hiatal hernia; gastroparesis Genitourinary History: Reports: Chronic Renal Insuffiency, Diabetic Nephropathy Musculoskeletal History: Reports: Amputation Neurological History: Reports: Neuropathy, Peripheral Other Neuro History: stroke 3 months ago Psychiatric History: Reports: Anxiety Endocrine/Metabolic History: Reports: Diabetes, Type I Other Endocrine/Metabolic History: brittle diabetic. 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 - Past Surgical History Head Surgeries/Procedures: Reports: None Social & Family History - Family History Family Medical History: Noncontributory Cardiac: Reports: High Cholesterol, Hypertension OBGYN: Reports: Neurological: Reports: None - Caffeine Use Caffeine Use: Reports: None Other Caffeine Use: daily Caffeine Use Comment: patient is uncooperated - Living Situation & Occupation Living situation: Reports: Single Occupation: Employed (Currently unemployed.) ED ROS GENERAL - Review of Systems Review Of Systems: Comprehensive ROS is negative, except as noted in HPI. ED EXAM, GENERAL - Physical Exam Exam: See Below (see dictation) Course - Vital Signs Last Recorded V/S: Last Vital Signs Temp 36.2 C 08/30/19 21:32 Pulse 95 08/30/19 23:02 Resp 18 08/30/19 23:02 BP 146/81 H 08/30/19 23:02 Pulse Ox 100 08/30/19 23:02 - Orders/Labs/Meds Orders: Active Orders 24 hr Category Date Time Status Patient Status [ADT] Stat ADT 08/30/19 23:19 Ordered Blood Glucose Check, Bedside [RC] ONETIME Care 08/30/19 21:39 Active Cardiac Monitoring [RC] . DIRECTED Care 08/30/19 21:39 Active EKG Documentation Completion [RC] STAT Care 08/30/19 21:39 Active Oxygen Therapy, ED [RC] ASDIRECTED Care 08/30/19 21:39 Active Pulse Oximetry [RC] ASDIRECTED Care 08/30/19 21:39 Active Pantoprazole [ProTONIX IV] 80 mg Med 08/30/19 21:45 Active Sodium Chloride 0.9% [Normal Saline] 100 ml IV .Continuous Sodium Chloride 0.9% [Saline Flush] Med 08/30/19 21:39 Active 10 ml FLUSH ASDIRECTED PRN Sodium Chloride 0.9% [Saline Flush] Med 08/30/19 21:39 Active 2.5 ml FLUSH ASDIRECTED PRN Saline Lock Insert [OM.PC] Stat Oth 08/30/19 21:38 Ordered Medication Orders Pantoprazole Sodium 80 mg/ (Sodium Chloride) 100 mls @ 10 mls/hr IV .Continuous MICHAEL Last Admin: 08/30/19 22:45 Dose: 10 mls/hr Sodium Chloride (Saline Flush) 10 ml FLUSH ASDIRECTED PRN PRN Reason: Keep Vein Open Sodium Chloride (Saline Flush) 2.5 ml FLUSH ASDIRECTED PRN PRN Reason: Keep Vein Open Labs: Laboratory Tests 08/30/19 08/30/19 08/30/19 Range/Units 21:35 21:35 21:35 WBC 8.00 (4.0-11.0) K/uL RBC 4.87 (4.50-5.90) M/uL Hgb 10.4 L (13.0-17.0) g/dL Hct 32.6 L (38.0-50.0) % MCV 66.9 L (80.0-98.0) fL MCH 21.4 L (27.0-32.0) pg MCHC 31.9 (31.0-37.0) g/dL RDW Std Deviation 39.3 (28.0-62.0) fl RDW Coeff of Dania 16 H (11.0-15.0) % Plt Count 363 (150-400) K/uL MPV 10.20 (7.40-12.00) fL Neut % (Auto) 71.1 (48.0-80.0) % Lymph % (Auto) 23.0 (16.0-40.0) % [place] % (Auto) 4.1 (0.0-15.0) % Eos % (Auto) 1.4 (0.0-7.0) % Baso % (Auto) 0.4 (0.0-1.5) % Neut # (Auto) 5.7 (1.4-5.7) K/uL Lymph # (Auto) 1.8 (0.6-2.4) K/uL [place] # (Auto) 0.3 (0.0-0.8) K/uL Eos # (Auto) 0.1 (0.0-0.7) K/uL Baso # (Auto) 0.0 (0.0-0.1) K/uL Nucleated RBC % 0.0 /100WBC Nucleated RBCs # 0 K/uL INR VBG pH 7.49 H (7.31-7.41) VBG pCO2 32 L (35-45) mmHG VBG pO2 62 H (30-40) mmHG VBG HCO3 25 (22-30) mEq/L VBG Total CO2 23 L (41-51) mmol/L VBG Base Excess 1.6 (-3.0-3.0) Sodium 137 (136-148) mmol/L Potassium 4.5 (3.5-5.1) mmol/L Chloride 100 (98-107) mmol/L Carbon Dioxide 24.7 (21.0-32.0) mmol/L BUN 40 H (7.0-18.0) mg/dL Creatinine 2.7 H (0.8-1.3) mg/dL Est Cr Clr Drug Dosing TNP Estimated GFR (MDRD) 27.4 ml/min Glucose 605 H* (74-106) mg/dL Calcium 8.7 (8.5-10.1) mg/dL Total Bilirubin 0.2 (0.2-1.0) mg/dL AST 58 H (15-37) IU/L ALT 50 (14-63) IU/L Alkaline Phosphatase 140 H (46-116) U/L Total Protein 7.1 (6.4-8.2) g/dL Albumin 3.0 L (3.4-5.0) g/dL Globulin 4.1 H (2.6-4.0) g/dL Albumin/Globulin Ratio 0.7 L (0.9-1.6) Amylase 70 (25-115) U/L Lipase 46 L (73-393) U/L Urine Color Urine Appearance Urine pH (5.0-8.0) Ur Specific Dawson (1.001-1.035) Urine Protein (NEGATIVE) mg/dL Urine Glucose (UA) (NEGATIVE) mg/dL Urine Ketones (NEGATIVE) mg/dL Urine Occult Blood (NEGATIVE) Urine Nitrite (NEGATIVE) Urine Bilirubin (NEGATIVE) Urine Urobilinogen (<2.0) EU/dL Ur Leukocyte Esterase (NEGATIVE) Urine RBC (0-2/HPF) Urine WBC (0-5/HPF) Ur Epithelial Cells (NONE-FEW) Urine Bacteria (NEGATIVE) Urine Mucus (NONE-MOD) Urine Opiates Screen (NEGATIVE) Ur Oxycodone Screen (NEGATIVE) Urine Methadone Screen (NEGATIVE) Ur Barbiturates Screen (NEGATIVE) Ur Phencyclidine Scrn (NEGATIVE) Ur Amphetamine Screen (NEGATIVE) U Methamphetamines Scrn (NEGATIVE) U Benzodiazepines Scrn (NEGATIVE) U Cocaine Metab Screen (NEGATIVE) U Marijuana (THC) Screen (NEGATIVE) Ketones (NEG) Blood Type Antibody Screen 08/30/19 08/30/19 08/30/19 Range/Units 21:35 21:45 21:45 WBC (4.0-11.0) K/uL RBC (4.50-5.90) M/uL Hgb (13.0-17.0) g/dL Hct (38.0-50.0) % MCV (80.0-98.0) fL MCH (27.0-32.0) pg MCHC (31.0-37.0) g/dL RDW Std Deviation (28.0-62.0) fl RDW Coeff of Dania (11.0-15.0) % Plt Count (150-400) K/uL MPV (7.40-12.00) fL Neut % (Auto) (48.0-80.0) % Lymph % (Auto) (16.0-40.0) % [place] % (Auto) (0.0-15.0) % Eos % (Auto) (0.0-7.0) % Baso % (Auto) (0.0-1.5) % Neut # (Auto) (1.4-5.7) K/uL Lymph # (Auto) (0.6-2.4) K/uL [place] # (Auto) (0.0-0.8) K/uL Eos # (Auto) (0.0-0.7) K/uL Baso # (Auto) (0.0-0.1) K/uL Nucleated RBC % /100WBC Nucleated RBCs # K/uL INR VBG pH (7.31-7.41) VBG pCO2 (35-45) mmHG VBG pO2 (30-40) mmHG VBG HCO3 (22-30) mEq/L VBG Total CO2 (41-51) mmol/L VBG Base Excess (-3.0-3.0) Sodium (136-148) mmol/L Potassium (3.5-5.1) mmol/L Chloride (98-107) mmol/L Carbon Dioxide (21.0-32.0) mmol/L BUN (7.0-18.0) mg/dL Creatinine (0.8-1.3) mg/dL Est Cr Clr Drug Dosing Estimated GFR (MDRD) ml/min Glucose (74-106) mg/dL Calcium (8.5-10.1) mg/dL Total Bilirubin (0.2-1.0) mg/dL AST (15-37) IU/L ALT (14-63) IU/L Alkaline Phosphatase (46-116) U/L Total Protein (6.4-8.2) g/dL Albumin (3.4-5.0) g/dL Globulin (2.6-4.0) g/dL Albumin/Globulin Ratio (0.9-1.6) Amylase (25-115) U/L Lipase (73-393) U/L Urine Color YELLOW Urine Appearance CLEAR Urine pH 7.5 (5.0-8.0) Ur Specific Dawson 1.020 (1.001-1.035) Urine Protein 100 H (NEGATIVE) mg/dL Urine Glucose (UA) >=1000 (NEGATIVE) mg/dL Urine Ketones NEGATIVE (NEGATIVE) mg/dL Urine Occult Blood SMALL H (NEGATIVE) Urine Nitrite NEGATIVE (NEGATIVE) Urine Bilirubin NEGATIVE (NEGATIVE) Urine Urobilinogen 0.2 (<2.0) EU/dL Ur Leukocyte Esterase NEGATIVE (NEGATIVE) Urine RBC 0-2 (0-2/HPF) Urine WBC 0-2 (0-5/HPF) Ur Epithelial Cells RARE (NONE-FEW) Urine Bacteria RARE (NEGATIVE) Urine Mucus LIGHT (NONE-MOD) Urine Opiates Screen NEGATIVE (NEGATIVE) Ur Oxycodone Screen NEGATIVE (NEGATIVE) Urine Methadone Screen NEGATIVE (NEGATIVE) Ur Barbiturates Screen NEGATIVE (NEGATIVE) Ur Phencyclidine Scrn NEGATIVE (NEGATIVE) Ur Amphetamine Screen NEGATIVE (NEGATIVE) U Methamphetamines Scrn NEGATIVE (NEGATIVE) U Benzodiazepines Scrn NEGATIVE (NEGATIVE) U Cocaine Metab Screen POSITIVE (NEGATIVE) U Marijuana (THC) Screen POSITIVE (NEGATIVE) Ketones NEGATIVE (NEG) Blood Type Antibody Screen 08/30/19 08/30/19 Range/Units 22:20 22:20 WBC (4.0-11.0) K/uL RBC (4.50-5.90) M/uL Hgb (13.0-17.0) g/dL Hct (38.0-50.0) % MCV (80.0-98.0) fL MCH (27.0-32.0) pg MCHC (31.0-37.0) g/dL RDW Std Deviation (28.0-62.0) fl RDW Coeff of Dania (11.0-15.0) % Plt Count (150-400) K/uL MPV (7.40-12.00) fL Neut % (Auto) (48.0-80.0) % Lymph % (Auto) (16.0-40.0) % [place] % (Auto) (0.0-15.0) % Eos % (Auto) (0.0-7.0) % Baso % (Auto) (0.0-1.5) % Neut # (Auto) (1.4-5.7) K/uL Lymph # (Auto) (0.6-2.4) K/uL [place] # (Auto) (0.0-0.8) K/uL Eos # (Auto) (0.0-0.7) K/uL Baso # (Auto) (0.0-0.1) K/uL Nucleated RBC % /100WBC Nucleated RBCs # K/uL INR 0.94 VBG pH (7.31-7.41) VBG pCO2 (35-45) mmHG VBG pO2 (30-40) mmHG VBG HCO3 (22-30) mEq/L VBG Total CO2 (41-51) mmol/L VBG Base Excess (-3.0-3.0) Sodium (136-148) mmol/L Potassium (3.5-5.1) mmol/L Chloride (98-107) mmol/L Carbon Dioxide (21.0-32.0) mmol/L BUN (7.0-18.0) mg/dL Creatinine (0.8-1.3) mg/dL Est Cr Clr Drug Dosing Estimated GFR (MDRD) ml/min Glucose (74-106) mg/dL Calcium (8.5-10.1) mg/dL Total Bilirubin (0.2-1.0) mg/dL AST (15-37) IU/L ALT (14-63) IU/L Alkaline Phosphatase (46-116) U/L Total Protein (6.4-8.2) g/dL Albumin (3.4-5.0) g/dL Globulin (2.6-4.0) g/dL Albumin/Globulin Ratio (0.9-1.6) Amylase (25-115) U/L Lipase (73-393) U/L Urine Color Urine Appearance Urine pH (5.0-8.0) Ur Specific Dawson (1.001-1.035) Urine Protein (NEGATIVE) mg/dL Urine Glucose (UA) (NEGATIVE) mg/dL Urine Ketones (NEGATIVE) mg/dL Urine Occult Blood (NEGATIVE) Urine Nitrite (NEGATIVE) Urine Bilirubin (NEGATIVE) Urine Urobilinogen (<2.0) EU/dL Ur Leukocyte Esterase (NEGATIVE) Urine RBC (0-2/HPF) Urine WBC (0-5/HPF) Ur Epithelial Cells (NONE-FEW) Urine Bacteria (NEGATIVE) Urine Mucus (NONE-MOD) Urine Opiates Screen (NEGATIVE) Ur Oxycodone Screen (NEGATIVE) Urine Methadone Screen (NEGATIVE) Ur Barbiturates Screen (NEGATIVE) Ur Phencyclidine Scrn (NEGATIVE) Ur Amphetamine Screen (NEGATIVE) U Methamphetamines Scrn (NEGATIVE) U Benzodiazepines Scrn (NEGATIVE) U Cocaine Metab Screen (NEGATIVE) U Marijuana (THC) Screen (NEGATIVE) Ketones (NEG) Blood Type O POSITIVE Antibody Screen NEGATIVE Meds: Medications Generic Name Dose Route Start Last Admin Trade Name Freq PRN Reason Stop Dose Admin Pantoprazole Sodium 80 mg/ 100 mls @ 10 mls/hr 08/30/19 21:45 08/30/19 22:45 Sodium Chloride IV 10 mls/hr .Continuous MICHAEL Administration Sodium Chloride 10 ml 08/30/19 21:39 Saline Flush FLUSH ASDIRECTED PRN Keep Vein Open Sodium Chloride 2.5 ml 08/30/19 21:39 Saline Flush FLUSH ASDIRECTED PRN Keep Vein Open Discontinued Medications Generic Name Dose Route Start Last Admin Trade Name Freq PRN Reason Stop Dose Admin Diphenhydramine HCl 50 mg 08/30/19 21:39 08/30/19 21:59 Benadryl IVPUSH 08/30/19 21:40 50 mg ONETIME ONE Administration Hydralazine HCl 10 mg 08/30/19 22:31 08/30/19 22:40 Apresoline IVPUSH 08/30/19 22:32 10 mg ONETIME ONE Administration Pantoprazole Sodium 80 mg/ 20 mls @ 420 mls/hr 08/30/19 21:40 08/30/19 22:07 Sodium Chloride IVPUSH 08/30/19 21:42 420 mls/hr ONETIME ONE Administration Sodium Chloride 1,000 mls @ 999 mls/hr 08/30/19 21:39 08/30/19 21:50 Normal Saline IV 08/30/19 22:39 999 mls/hr STAT ONE Administration Insulin Human Regular 15 unit 08/31/19 22:36 Novolin R SUBCUT 08/31/19 22:37 ONETIME ONE Protocol Insulin Human Regular 15 unit 08/30/19 22:36 08/30/19 22:59 Novolin R SUBCUT 08/30/19 22:37 15 units ONETIME ONE Administration Protocol Insulin Human Regular Confirm 08/30/19 22:55 08/30/19 23:02 Novolin R Administered 08/30/19 22:56 Not Given Dose 1,000 unit .ROUTE .STK-MED ONE Lorazepam 1 mg 08/30/19 21:39 08/30/19 21:59 Ativan IVPUSH 08/30/19 21:40 1 mg ONETIME ONE Administration Metoclopramide HCl 10 mg 08/30/19 21:39 08/30/19 21:59 Reglan IV 08/30/19 21:40 10 mg ONETIME ONE Administration Ondansetron HCl 4 mg 08/30/19 21:39 08/30/19 22:06 Zofran IVPUSH 08/30/19 21:40 4 mg ONETIME ONE Administration Departure - Departure Time of Disposition: 23:21 Disposition: Refer to Observation Condition: Fair Clinical Impression: Uncontrolled diabetes mellitus, Gastroparesis diabeticorum, Poorly controlled diabetes mellitus - Discharge Information Referrals: PCP,None [Primary Care Provider] - Forms: ED Department Discharge Sepsis Event Note - Focused Exam Vital Signs: Vital Signs Temp Pulse Resp BP Pulse Ox 08/30/19 23:02 95 18 146/81 H 100 08/30/19 22:50 95 18 155/80 H 99 08/30/19 22:38 96 18 179/101 H 98 08/30/19 22:15 105 H 18 227/130 H 93 L 08/30/19 21:32 36.2 C 109 H 18 230/141 H 100 Date Exam was Performed: 08/30/19 Time Exam was Performed: 23:20 - My Orders Last 24 Hours: My Active Orders 08/30/19 21:38 Saline Lock Insert [OM.PC] Stat 08/30/19 21:39 Blood Glucose Check, Bedside [RC] ONETIME Cardiac Monitoring [RC] . DIRECTED EKG Documentation Completion [RC] STAT Oxygen Therapy, ED [RC] ASDIRECTED Pulse Oximetry [RC] ASDIRECTED Sodium Chloride 0.9% [Saline Flush] 10 ml FLUSH ASDIRECTED PRN Sodium Chloride 0.9% [Saline Flush] 2.5 ml FLUSH ASDIRECTED PRN 08/30/19 21:45 Pantoprazole [ProTONIX IV] 80 mg Sodium Chloride 0.9% [Normal Saline] 100 ml IV .Continuous 08/30/19 23:19 Patient Status [ADT] Stat - Assessment/Plan Last 24 Hours: My Active Orders 08/30/19 21:38 Saline Lock Insert [OM.PC] Stat 08/30/19 21:39 Blood Glucose Check, Bedside [RC] ONETIME Cardiac Monitoring [RC] . DIRECTED EKG Documentation Completion [RC] STAT Oxygen Therapy, ED [RC] ASDIRECTED Pulse Oximetry [RC] ASDIRECTED Sodium Chloride 0.9% [Saline Flush] 10 ml FLUSH ASDIRECTED PRN Sodium Chloride 0.9% [Saline Flush] 2.5 ml FLUSH ASDIRECTED PRN 08/30/19 21:45 Pantoprazole [ProTONIX IV] 80 mg Sodium Chloride 0.9% [Normal Saline] 100 ml IV .Continuous 08/30/19 23:19 Patient Status [ADT] Stat
[2019-08-30 22:09] LABS: BLOOD UREA NITROGEN,BUN 40 mg/dL (7.0-18.0); CARBON DIOXIDE,CO2 24.7 mmol/L (21.0-32.0); CHLORIDE,CL 100 mmol/L (98-107); LIPASE 46 U/L (73-393); POTASSIUM,K 4.5 mmol/L (3.5-5.1); SODIUM,NA 137 mmol/L (136-148)
[2019-08-30 22:13] LABS: GLUCOSE RANDOM 605 mg/dL (74-106)
[2019-08-30] MEDS ORDERED: hydrALAZINE 20 MG/ML SDV IVPUSH ONE (22:31)
[2019-08-30] MEDS ORDERED: Insulin Regular, Human 100 Units/ML 10 ML Vial SUBCUT ONE ×2 (22:36→23:28)
--- NOTE | 2019-08-30 22:39 | CR ---
Indication: Hematemesis, hyperglycemia Technique: KUB 2 view and frontal view chest Comparison: August 15, 2019 and August 01, 2019 Findings/Impression: : Normal cardiomediastinal silhouette. Clear lungs and pleural spaces. Nonspecific bowel gas pattern. No evidence for free air. No acute osseous abnormality. Dictated by Belinda Bull MD @ Aug 30 2019 10:38PM Signed by Dr. Belinda Bull @ Aug 30 2019 10:38PM
[2019-08-30] MEDS ORDERED: Insulin Regular, Human 100 Units/ML 10 ML Vial ONE (22:55)
[2019-08-30] MEDS: Sodium Chloride 0.9% 1,000 ML IV SCH (23:40)
[2019-08-30] MEDS ORDERED: Albuterol/Ipratropium 3.0-0.5 MG/3 ML Neb Soln NEB PRN (23:43)
[2019-08-30] MEDS ORDERED: Metoclopramide 10 MG/2 ML SDV IVPUSH PRN (23:43)
[2019-08-30] MEDS ORDERED: Sodium Chloride 0.9% 1,000 ML IV SCH (23:45)
[2019-08-31] MEDS ORDERED: diphenhydrAMINE 50 MG/ML SDV IM PRN (00:01)
[2019-08-31] MEDS: Metoprolol Succinate 100 MG Tab.ER PO SCH ×2 (00:32→10:06)
[2019-08-31] MEDS: Spironolactone 25 MG Tab PO SCH ×3 (00:32→14:12)
[2019-08-31] MEDS: Insulin Glargine,Human Rec. Analog 100 Units/ML 3 ML Pen SUBCUT SCH ×2 (00:36→21:41)
[2019-08-31] MEDS: hydrALAZINE 20 MG/ML SDV IVPUSH PRN (00:39)
[2019-08-31] MEDS ORDERED: Morphine 4 MG/ML Syringe IVPUSH PRN (01:51)
[2019-08-31] MEDS: Sodium Chloride 0.9% 1,000 ML IV SCH (04:17)
[2019-08-31 07:00] LABS: CARBON DIOXIDE,CO2 27.5 mmol/L (21.0-32.0); POTASSIUM,K 4.1 mmol/L (3.5-5.1)
[2019-08-31] MEDS: Sucralfate Suspension 1 GM/10 ML Cup PO SCH ×4 (08:03→21:40)
[2019-08-31] MEDS: Insulin Aspart 100 Units/ML 3 ML Pen SUBCUT SCH ×3 (08:09→17:58)
--- NOTE | 2019-08-31 08:19 | PCM.HP.2 ---
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 He is well known to this hospital and provider. He reports he started feeling ill a day ago and then last night the nausea significantly worsened. He told me he did not vomit blood but then told other providers conflicting information. He denies chest pain or SOB. No abdominal pain. No black or bloody BMs. He reports he has been taking Reglan 1- 2 times daily with meals. He was recently in [place] for similar episode and GI was not consulted. He reports smoking marijuana, but is unsure how cocaine got in his system. He denies using this. The medical dangers of cocaine were explained to him explicitly and he verbalized understanding. In the ED hgb 10.4, BUN 40 Cr 2.7, BS 605. No DKA noted. CXR negative. He was given IVFs, pain medications and nausea medications. He was admitted for possible GI bleed with nausea and vomiting. PCP, Dr Infante. abdomen Pain Score (Numeric/FACES): 10 - Related Data Allergies/Adverse Reactions: Allergies Allergy/AdvReac Type Severity Reaction Status Date / Time shrimp Allergy Severe Swelling Verified 08/30/19 23:47 iodine Allergy Unknown Anaphylactic Verified 08/30/19 23:47 Shock Penicillins Allergy Unknown Anaphylactic Verified 08/30/19 23:47 Shock shellfish derived Allergy Anaphylactic Verified 08/30/19 23:47 Shock gluten Allergy Unknown Muscle Uncoded 08/30/19 23:47 Aches Home Medications: Home Meds Doxazosin [Cardura] 4 mg PO BEDTIME 09/25/17 [History] Torsemide 20 mg PO DAILY 09/25/17 [History] amLODIPine Besylate [Amlodipine Besylate] 10 mg PO BEDTIME 09/25/17 [History] Ferrous Sulfate 324 mg PO DAILY 01/20/18 [History] Insulin Glarg,Human.Rec.Analog [Lantus Solostar] 35 units SUBCUT BEDTIME [History] Insulin Aspart [NovoLOG] 0 unit SUBCUT ASDIRECTED PRN 05/23/18 [History] Spironolactone [Aldactone] 25 mg PO BID 12/14/18 [History] hydroCHLOROthiazide [Hydrochlorothiazide] 25 mg PO DAILY 12/14/18 [History] Aspirin [Halfprin] 81 mg PO DAILY #30 tab.ec 12/15/18 [Rx] Sucralfate [Carafate] 1 gm PO QIDACANDBED #120 ml 04/05/19 [Rx] Metoclopramide HCl [Reglan] 10 mg PO TID PRN #20 tablet 06/17/19 [Rx] Metoprolol Succinate 2 tab PO DAILY 06/17/19 [History] Pantoprazole Sodium [Protonix] 40 mg PO DAILY 06/17/19 [History] atorvaSTATin [Lipitor] 80 mg PO BEDTIME 06/17/19 [History] Enalapril [Vasotec] 20 mg PO BEDTIME tablet 08/01/19 [Rx] Past Medical History - Past Health History Medical/Surgical History: Denies Medical/Surgical History HEENT History: Reports: Impaired Vision Other HEENT History: blind right eye Cardiovascular History: Reports: Hypertension Respiratory History: Reports: None Gastrointestinal History: Reports: Gastritis, GERD, Hiatal Hernia, Other (See Below) Other Gastrointestinal History: h/o gastric ulcers, h/o hiatal hernia; gastroparesis Genitourinary History: Reports: Chronic Renal Insuffiency, Diabetic Nephropathy Musculoskeletal History: Reports: Amputation Neurological History: Reports: Neuropathy, Peripheral Other Neuro History: stroke 3 months ago Psychiatric History: Reports: Anxiety Endocrine/Metabolic History: Reports: Diabetes, Type I Other Endocrine/Metabolic History: brittle diabetic. History of hyperkalemia and DKA Insulin Pump Model and Demo Event Specialist: None Hematologic History: Reports: Anemia Immunologic History: Reports: None Oncologic (Cancer) History: Reports: None Dermatologic History: Reports: Other (See Below) Other Dermatologic History: diabetic foot ulcers - Infectious Disease History Infectious Disease History: Reports: None Other Infectious Disease History: 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 - Past Surgical History Head Surgeries/Procedures: Reports: None Musculoskeletal Surgical History: Reports: Other (See Below) Other Musculoskeletal Surgeries/Procedures:: right BKA Social & Family History - Family History Family Medical History: Noncontributory Cardiac: Reports: High Cholesterol, Hypertension OBGYN: Reports: Neurological: Reports: None - Tobacco Use Smoking Status *Q: Unknown Ever Smoked - Caffeine Use Caffeine Use: Reports: None Other Caffeine Use: daily Caffeine Use Comment: patient is uncooperated - Recreational Drug Use Recreational Drug Use: Yes - Living Situation & Occupation Living situation: Reports: Single Occupation: Employed (Currently unemployed.) H&P Review of Systems - Review of Systems: Review Of Systems: See Below General: Reports: No Symptoms, Malaise. Denies: Fever, Chills HEENT: Reports: No Symptoms. Denies: Headaches, Sinus Congestion Pulmonary: Reports: No Symptoms. Denies: Shortness of Breath Cardiovascular: Reports: No Symptoms. Denies: Chest Pain, Edema, Lightheadedness, Syncope Gastrointestinal: Reports: Abdominal Pain, Decreased Appetite, Hematemesis, Nausea. Denies: Black Stool Genitourinary: Reports: No Symptoms. Denies: Dysuria, Frequency, Burning Skin: Reports: No Symptoms Neurological: Reports: No Symptoms Hematologic/Lymphatic: Reports: No Symptoms Immunologic: Reports: No Symptoms Exam - Exam Exam: See Below - Vital Signs Vital Signs: Last Vital Signs Temp 98.2 F 08/31/19 08:00 Pulse 86 08/31/19 08:00 Resp 20 08/31/19 08:00 BP 153/102 H 08/31/19 08:00 Pulse Ox 97 08/31/19 08:00 Weight: 50.9 kg - Exam General: Alert, Oriented HEENT: Conjunctiva Clear, Mucosa Moist & [place], Pupils Equal Lungs: Clear to Auscultation, Normal Respiratory Effort Cardiovascular: Regular Rate, Regular Rhythm GI/Abdominal Exam: Normal Bowel Sounds, Soft, Non-Tender Extremities: Normal Inspection, Normal Range of Motion, Non-Tender Neuro Extensive - Mental Status: Alert, Oriented x3 Neuro Extensive - Motor, Sensory, Reflexes: CN II-XII Intact Psychiatric: Alert, Normal Affect, Normal Mood - Patient Data Lab Results Last 24 hrs: Laboratory Results - last 24 hr 08/30/19 08/30/19 08/30/19 Range/Units 21:35 21:35 21:35 WBC 8.00 (4.0-11.0) K/uL RBC 4.87 (4.50-5.90) M/uL Hgb 10.4 L (13.0-17.0) g/dL Hct 32.6 L (38.0-50.0) % MCV 66.9 L (80.0-98.0) fL MCH 21.4 L (27.0-32.0) pg MCHC 31.9 (31.0-37.0) g/dL RDW Std Deviation 39.3 (28.0-62.0) fl RDW Coeff of Dania 16 H (11.0-15.0) % Plt Count 363 (150-400) K/uL MPV 10.20 (7.40-12.00) fL Neut % (Auto) 71.1 (48.0-80.0) % Lymph % (Auto) 23.0 (16.0-40.0) % [place] % (Auto) 4.1 (0.0-15.0) % Eos % (Auto) 1.4 (0.0-7.0) % Baso % (Auto) 0.4 (0.0-1.5) % Neut # (Auto) 5.7 (1.4-5.7) K/uL Lymph # (Auto) 1.8 (0.6-2.4) K/uL [place] # (Auto) 0.3 (0.0-0.8) K/uL Eos # (Auto) 0.1 (0.0-0.7) K/uL Baso # (Auto) 0.0 (0.0-0.1) K/uL Add Manual Diff Neutrophils % (Manual) (48.0-80.0) % Lymphocytes % (Manual) (16.0-40.0) % Monocytes % (Manual) (0.0-15.0) % Basophils % (Manual) (0.0-1.5) % Nucleated RBC % 0.0 /100WBC Absolute Seg Neuts (1.4-5.7) Lymphocytes # (Manual) (0.6-2.4) Monocytes # (Manual) (0.0-0.8) Basophils # (Manual) (0.0-0.1) Nucleated RBCs # 0 K/uL INR VBG pH 7.49 H (7.31-7.41) VBG pCO2 32 L (35-45) mmHG VBG pO2 62 H (30-40) mmHG VBG HCO3 25 (22-30) mEq/L VBG Total CO2 23 L (41-51) mmol/L VBG Base Excess 1.6 (-3.0-3.0) Sodium 137 (136-148) mmol/L Potassium 4.5 (3.5-5.1) mmol/L Chloride 100 (98-107) mmol/L Carbon Dioxide 24.7 (21.0-32.0) mmol/L BUN 40 H (7.0-18.0) mg/dL Creatinine 2.7 H (0.8-1.3) mg/dL Est Cr Clr Drug Dosing TNP Estimated GFR (MDRD) 27.4 ml/min Glucose 605 H* (74-106) mg/dL POC Glucose (60-110) mg/dL Calcium 8.7 (8.5-10.1) mg/dL Phosphorus (2.6-4.7) mg/dL Magnesium (1.8-2.4) mg/dL Total Bilirubin 0.2 (0.2-1.0) mg/dL AST 58 H (15-37) IU/L ALT 50 (14-63) IU/L Alkaline Phosphatase 140 H (46-116) U/L Total Protein 7.1 (6.4-8.2) g/dL Albumin 3.0 L (3.4-5.0) g/dL Globulin 4.1 H (2.6-4.0) g/dL Albumin/Globulin Ratio 0.7 L (0.9-1.6) Amylase 70 (25-115) U/L Lipase 46 L (73-393) U/L Urine Color Urine Appearance Urine pH (5.0-8.0) Ur Specific [place] (1.001-1.035) Urine Protein (NEGATIVE) mg/dL Urine Glucose (UA) (NEGATIVE) mg/dL Urine Ketones (NEGATIVE) mg/dL Urine Occult Blood (NEGATIVE) Urine Nitrite (NEGATIVE) Urine Bilirubin (NEGATIVE) Urine Urobilinogen (<2.0) EU/dL Ur Leukocyte Esterase (NEGATIVE) Urine RBC (0-2/HPF) Urine WBC (0-5/HPF) Ur Epithelial Cells (NONE-FEW) Urine Bacteria (NEGATIVE) Urine Mucus (NONE-MOD) Urine Opiates Screen (NEGATIVE) Ur Oxycodone Screen (NEGATIVE) Urine Methadone Screen (NEGATIVE) Ur Barbiturates Screen (NEGATIVE) Ur Phencyclidine Scrn (NEGATIVE) Ur Amphetamine Screen (NEGATIVE) U Methamphetamines Scrn (NEGATIVE) U Benzodiazepines Scrn (NEGATIVE) U Cocaine Metab Screen (NEGATIVE) U Marijuana (THC) Screen (NEGATIVE) Ketones (NEG) Blood Type Antibody Screen 08/30/19 08/30/19 08/30/19 Range/Units 21:35 21:45 21:45 WBC (4.0-11.0) K/uL RBC (4.50-5.90) M/uL Hgb (13.0-17.0) g/dL Hct (38.0-50.0) % MCV (80.0-98.0) fL MCH (27.0-32.0) pg MCHC (31.0-37.0) g/dL RDW Std Deviation (28.0-62.0) fl RDW Coeff of Dania (11.0-15.0) % Plt Count (150-400) K/uL MPV (7.40-12.00) fL Neut % (Auto) (48.0-80.0) % Lymph % (Auto) (16.0-40.0) % [place] % (Auto) (0.0-15.0) % Eos % (Auto) (0.0-7.0) % Baso % (Auto) (0.0-1.5) % Neut # (Auto) (1.4-5.7) K/uL Lymph # (Auto) (0.6-2.4) K/uL [place] # (Auto) (0.0-0.8) K/uL Eos # (Auto) (0.0-0.7) K/uL Baso # (Auto) (0.0-0.1) K/uL Add Manual Diff Neutrophils % (Manual) (48.0-80.0) % Lymphocytes % (Manual) (16.0-40.0) % Monocytes % (Manual) (0.0-15.0) % Basophils % (Manual) (0.0-1.5) % Nucleated RBC % /100WBC Absolute Seg Neuts (1.4-5.7) Lymphocytes # (Manual) (0.6-2.4) Monocytes # (Manual) (0.0-0.8) Basophils # (Manual) (0.0-0.1) Nucleated RBCs # K/uL INR VBG pH (7.31-7.41) VBG pCO2 (35-45) mmHG VBG pO2 (30-40) mmHG VBG HCO3 (22-30) mEq/L VBG Total CO2 (41-51) mmol/L VBG Base Excess (-3.0-3.0) Sodium (136-148) mmol/L Potassium (3.5-5.1) mmol/L Chloride (98-107) mmol/L Carbon Dioxide (21.0-32.0) mmol/L BUN (7.0-18.0) mg/dL Creatinine (0.8-1.3) mg/dL Est Cr Clr Drug Dosing Estimated GFR (MDRD) ml/min Glucose (74-106) mg/dL POC Glucose (60-110) mg/dL Calcium (8.5-10.1) mg/dL Phosphorus (2.6-4.7) mg/dL Magnesium (1.8-2.4) mg/dL Total Bilirubin (0.2-1.0) mg/dL AST (15-37) IU/L ALT (14-63) IU/L Alkaline Phosphatase (46-116) U/L Total Protein (6.4-8.2) g/dL Albumin (3.4-5.0) g/dL Globulin (2.6-4.0) g/dL Albumin/Globulin Ratio (0.9-1.6) Amylase (25-115) U/L Lipase (73-393) U/L Urine Color YELLOW Urine Appearance CLEAR Urine pH 7.5 (5.0-8.0) Ur Specific [place] 1.020 (1.001-1.035) Urine Protein 100 H (NEGATIVE) mg/dL Urine Glucose (UA) >=1000 (NEGATIVE) mg/dL Urine Ketones NEGATIVE (NEGATIVE) mg/dL Urine Occult Blood SMALL H (NEGATIVE) Urine Nitrite NEGATIVE (NEGATIVE) Urine Bilirubin NEGATIVE (NEGATIVE) Urine Urobilinogen 0.2 (<2.0) EU/dL Ur Leukocyte Esterase NEGATIVE (NEGATIVE) Urine RBC 0-2 (0-2/HPF) Urine WBC 0-2 (0-5/HPF) Ur Epithelial Cells RARE (NONE-FEW) Urine Bacteria RARE (NEGATIVE) Urine Mucus LIGHT (NONE-MOD) Urine Opiates Screen NEGATIVE (NEGATIVE) Ur Oxycodone Screen NEGATIVE (NEGATIVE) Urine Methadone Screen NEGATIVE (NEGATIVE) Ur Barbiturates Screen NEGATIVE (NEGATIVE) Ur Phencyclidine Scrn NEGATIVE (NEGATIVE) Ur Amphetamine Screen NEGATIVE (NEGATIVE) U Methamphetamines Scrn NEGATIVE (NEGATIVE) U Benzodiazepines Scrn NEGATIVE (NEGATIVE) U Cocaine Metab Screen POSITIVE (NEGATIVE) U Marijuana (THC) Screen POSITIVE (NEGATIVE) Ketones NEGATIVE (NEG) Blood Type Antibody Screen 08/30/19 08/30/19 08/31/19 Range/Units 22:20 22:20 00:32 WBC (4.0-11.0) K/uL RBC (4.50-5.90) M/uL Hgb (13.0-17.0) g/dL Hct (38.0-50.0) % MCV (80.0-98.0) fL MCH (27.0-32.0) pg MCHC (31.0-37.0) g/dL RDW Std Deviation (28.0-62.0) fl RDW Coeff of Dania (11.0-15.0) % Plt Count (150-400) K/uL MPV (7.40-12.00) fL Neut % (Auto) (48.0-80.0) % Lymph % (Auto) (16.0-40.0) % [place] % (Auto) (0.0-15.0) % Eos % (Auto) (0.0-7.0) % Baso % (Auto) (0.0-1.5) % Neut # (Auto) (1.4-5.7) K/uL Lymph # (Auto) (0.6-2.4) K/uL [place] # (Auto) (0.0-0.8) K/uL Eos # (Auto) (0.0-0.7) K/uL Baso # (Auto) (0.0-0.1) K/uL Add Manual Diff Neutrophils % (Manual) (48.0-80.0) % Lymphocytes % (Manual) (16.0-40.0) % Monocytes % (Manual) (0.0-15.0) % Basophils % (Manual) (0.0-1.5) % Nucleated RBC % /100WBC Absolute Seg Neuts (1.4-5.7) Lymphocytes # (Manual) (0.6-2.4) Monocytes # (Manual) (0.0-0.8) Basophils # (Manual) (0.0-0.1) Nucleated RBCs # K/uL INR 0.94 VBG pH (7.31-7.41) VBG pCO2 (35-45) mmHG VBG pO2 (30-40) mmHG VBG HCO3 (22-30) mEq/L VBG Total CO2 (41-51) mmol/L VBG Base Excess (-3.0-3.0) Sodium (136-148) mmol/L Potassium (3.5-5.1) mmol/L Chloride (98-107) mmol/L Carbon Dioxide (21.0-32.0) mmol/L BUN (7.0-18.0) mg/dL Creatinine (0.8-1.3) mg/dL Est Cr Clr Drug Dosing Estimated GFR (MDRD) ml/min Glucose (74-106) mg/dL POC Glucose 419 H (60-110) mg/dL Calcium (8.5-10.1) mg/dL Phosphorus (2.6-4.7) mg/dL Magnesium (1.8-2.4) mg/dL Total Bilirubin (0.2-1.0) mg/dL AST (15-37) IU/L ALT (14-63) IU/L Alkaline Phosphatase (46-116) U/L Total Protein (6.4-8.2) g/dL Albumin (3.4-5.0) g/dL Globulin (2.6-4.0) g/dL Albumin/Globulin Ratio (0.9-1.6) Amylase (25-115) U/L Lipase (73-393) U/L Urine Color Urine Appearance Urine pH (5.0-8.0) Ur Specific [place] (1.001-1.035) Urine Protein (NEGATIVE) mg/dL Urine Glucose (UA) (NEGATIVE) mg/dL Urine Ketones (NEGATIVE) mg/dL Urine Occult Blood (NEGATIVE) Urine Nitrite (NEGATIVE) Urine Bilirubin (NEGATIVE) Urine Urobilinogen (<2.0) EU/dL Ur Leukocyte Esterase (NEGATIVE) Urine RBC (0-2/HPF) Urine WBC (0-5/HPF) Ur Epithelial Cells (NONE-FEW) Urine Bacteria (NEGATIVE) Urine Mucus (NONE-MOD) Urine Opiates Screen (NEGATIVE) Ur Oxycodone Screen (NEGATIVE) Urine Methadone Screen (NEGATIVE) Ur Barbiturates Screen (NEGATIVE) Ur Phencyclidine Scrn (NEGATIVE) Ur Amphetamine Screen (NEGATIVE) U Methamphetamines Scrn (NEGATIVE) U Benzodiazepines Scrn (NEGATIVE) U Cocaine Metab Screen (NEGATIVE) U Marijuana (THC) Screen (NEGATIVE) Ketones (NEG) Blood Type O POSITIVE Antibody Screen NEGATIVE 08/31/19 08/31/19 08/31/19 Range/Units 06:15 06:15 06:52 WBC 8.69 (4.0-11.0) K/uL RBC 4.47 L (4.50-5.90) M/uL Hgb 9.4 L (13.0-17.0) g/dL Hct 30.4 L (38.0-50.0) % MCV 68.0 L (80.0-98.0) fL MCH 21.0 L (27.0-32.0) pg MCHC 30.9 L (31.0-37.0) g/dL RDW Std Deviation 39.7 (28.0-62.0) fl RDW Coeff of Dania 16 H (11.0-15.0) % Plt Count 325 (150-400) K/uL MPV 10.50 (7.40-12.00) fL Neut % (Auto) (48.0-80.0) % Lymph % (Auto) (16.0-40.0) % [place] % (Auto) (0.0-15.0) % Eos % (Auto) (0.0-7.0) % Baso % (Auto) (0.0-1.5) % Neut # (Auto) (1.4-5.7) K/uL Lymph # (Auto) (0.6-2.4) K/uL [place] # (Auto) (0.0-0.8) K/uL Eos # (Auto) (0.0-0.7) K/uL Baso # (Auto) (0.0-0.1) K/uL Add Manual Diff YES Neutrophils % (Manual) 89 H (48.0-80.0) % Lymphocytes % (Manual) 8 L (16.0-40.0) % Monocytes % (Manual) 2 (0.0-15.0) % Basophils % (Manual) 1 (0.0-1.5) % Nucleated RBC % 0.0 /100WBC Absolute Seg Neuts 7.7 H (1.4-5.7) Lymphocytes # (Manual) 0.7 (0.6-2.4) Monocytes # (Manual) 0.2 (0.0-0.8) Basophils # (Manual) 0.1 (0.0-0.1) Nucleated RBCs # 0 K/uL INR VBG pH (7.31-7.41) VBG pCO2 (35-45) mmHG VBG pO2 (30-40) mmHG VBG HCO3 (22-30) mEq/L VBG Total CO2 (41-51) mmol/L VBG Base Excess (-3.0-3.0) Sodium 148 (136-148) mmol/L Potassium 4.1 (3.5-5.1) mmol/L Chloride 113 H (98-107) mmol/L Carbon Dioxide 27.5 (21.0-32.0) mmol/L BUN 36 H (7.0-18.0) mg/dL Creatinine 2.2 H (0.8-1.3) mg/dL Est Cr Clr Drug Dosing 34.38 Estimated GFR (MDRD) 34.6 ml/min Glucose (74-106) mg/dL POC Glucose 28 L (60-110) mg/dL Calcium 8.5 (8.5-10.1) mg/dL Phosphorus 3.5 (2.6-4.7) mg/dL Magnesium 2.4 (1.8-2.4) mg/dL Total Bilirubin (0.2-1.0) mg/dL AST (15-37) IU/L ALT (14-63) IU/L Alkaline Phosphatase (46-116) U/L Total Protein (6.4-8.2) g/dL Albumin (3.4-5.0) g/dL Globulin (2.6-4.0) g/dL Albumin/Globulin Ratio (0.9-1.6) Amylase (25-115) U/L Lipase (73-393) U/L Urine Color Urine Appearance Urine pH (5.0-8.0) Ur Specific [place] (1.001-1.035) Urine Protein (NEGATIVE) mg/dL Urine Glucose (UA) (NEGATIVE) mg/dL Urine Ketones (NEGATIVE) mg/dL Urine Occult Blood (NEGATIVE) Urine Nitrite (NEGATIVE) Urine Bilirubin (NEGATIVE) Urine Urobilinogen (<2.0) EU/dL Ur Leukocyte Esterase (NEGATIVE) Urine RBC (0-2/HPF) Urine WBC (0-5/HPF) Ur Epithelial Cells (NONE-FEW) Urine Bacteria (NEGATIVE) Urine Mucus (NONE-MOD) Urine Opiates Screen (NEGATIVE) Ur Oxycodone Screen (NEGATIVE) Urine Methadone Screen (NEGATIVE) Ur Barbiturates Screen (NEGATIVE) Ur Phencyclidine Scrn (NEGATIVE) Ur Amphetamine Screen (NEGATIVE) U Methamphetamines Scrn (NEGATIVE) U Benzodiazepines Scrn (NEGATIVE) U Cocaine Metab Screen (NEGATIVE) U Marijuana (THC) Screen (NEGATIVE) Ketones (NEG) Blood Type Antibody Screen 08/31/19 Range/Units 07:18 WBC (4.0-11.0) K/uL RBC (4.50-5.90) M/uL Hgb (13.0-17.0) g/dL Hct (38.0-50.0) % MCV (80.0-98.0) fL MCH (27.0-32.0) pg MCHC (31.0-37.0) g/dL RDW Std Deviation (28.0-62.0) fl RDW Coeff of Dania (11.0-15.0) % Plt Count (150-400) K/uL MPV (7.40-12.00) fL Neut % (Auto) (48.0-80.0) % Lymph % (Auto) (16.0-40.0) % [place] % (Auto) (0.0-15.0) % Eos % (Auto) (0.0-7.0) % Baso % (Auto) (0.0-1.5) % Neut # (Auto) (1.4-5.7) K/uL Lymph # (Auto) (0.6-2.4) K/uL [place] # (Auto) (0.0-0.8) K/uL Eos # (Auto) (0.0-0.7) K/uL Baso # (Auto) (0.0-0.1) K/uL Add Manual Diff Neutrophils % (Manual) (48.0-80.0) % Lymphocytes % (Manual) (16.0-40.0) % Monocytes % (Manual) (0.0-15.0) % Basophils % (Manual) (0.0-1.5) % Nucleated RBC % /100WBC Absolute Seg Neuts (1.4-5.7) Lymphocytes # (Manual) (0.6-2.4) Monocytes # (Manual) (0.0-0.8) Basophils # (Manual) (0.0-0.1) Nucleated RBCs # K/uL INR VBG pH (7.31-7.41) VBG pCO2 (35-45) mmHG VBG pO2 (30-40) mmHG VBG HCO3 (22-30) mEq/L VBG Total CO2 (41-51) mmol/L VBG Base Excess (-3.0-3.0) Sodium (136-148) mmol/L Potassium (3.5-5.1) mmol/L Chloride (98-107) mmol/L Carbon Dioxide (21.0-32.0) mmol/L BUN (7.0-18.0) mg/dL Creatinine (0.8-1.3) mg/dL Est Cr Clr Drug Dosing Estimated GFR (MDRD) ml/min Glucose (74-106) mg/dL POC Glucose 116 H (60-110) mg/dL Calcium (8.5-10.1) mg/dL Phosphorus (2.6-4.7) mg/dL Magnesium (1.8-2.4) mg/dL Total Bilirubin (0.2-1.0) mg/dL AST (15-37) IU/L ALT (14-63) IU/L Alkaline Phosphatase (46-116) U/L Total Protein (6.4-8.2) g/dL Albumin (3.4-5.0) g/dL Globulin (2.6-4.0) g/dL Albumin/Globulin Ratio (0.9-1.6) Amylase (25-115) U/L Lipase (73-393) U/L Urine Color Urine Appearance Urine pH (5.0-8.0) Ur Specific [place] (1.001-1.035) Urine Protein (NEGATIVE) mg/dL Urine Glucose (UA) (NEGATIVE) mg/dL Urine Ketones (NEGATIVE) mg/dL Urine Occult Blood (NEGATIVE) Urine Nitrite (NEGATIVE) Urine Bilirubin (NEGATIVE) Urine Urobilinogen (<2.0) EU/dL Ur Leukocyte Esterase (NEGATIVE) Urine RBC (0-2/HPF) Urine WBC (0-5/HPF) Ur Epithelial Cells (NONE-FEW) Urine Bacteria (NEGATIVE) Urine Mucus (NONE-MOD) Urine Opiates Screen (NEGATIVE) Ur Oxycodone Screen (NEGATIVE) Urine Methadone Screen (NEGATIVE) Ur Barbiturates Screen (NEGATIVE) Ur Phencyclidine Scrn (NEGATIVE) Ur Amphetamine Screen (NEGATIVE) U Methamphetamines Scrn (NEGATIVE) U Benzodiazepines Scrn (NEGATIVE) U Cocaine Metab Screen (NEGATIVE) U Marijuana (THC) Screen (NEGATIVE) Ketones (NEG) Blood Type Antibody Screen Result Diagrams: 08/31/19 06:15 08/31/19 06:15 Sepsis Event Note - Evaluation Sepsis Screening Result: No Definite Risk - Focused Exam Vital Signs: Vital Signs Temp Pulse Pulse Resp BP BP Pulse Ox 08/31/19 08:00 98.2 F 86 20 153/102 H 97 08/31/19 01:40 118 H 22 H 174/97 H 98 08/31/19 00:32 122 H 238/130 H 08/31/19 00:25 97.9 F 122 H 24 H 238/130 H 99 08/30/19 23:50 94 18 163/94 H 98 08/30/19 23:02 95 18 146/81 H 100 08/30/19 22:50 95 18 155/80 H 99 08/30/19 22:38 96 18 179/101 H 98 08/30/19 22:15 105 H 18 227/130 H 93 L 08/30/19 21:32 97.1 F 109 H 18 230/141 H 100 Date Exam was Performed: 08/31/19 Time Exam was Performed: 16:15 - Problem List (1) Gastroparesis due to DM SNOMED Code(s): 421655925 ICD Code: E11.43 - TYPE 2 DIABETES W DIABETIC AUTONOMIC (POLY)NEUROPATHY; K31.84 - GASTROPARESIS Status: Acute Current Visit: Yes (2) Hematemesis SNOMED Code(s): 4658475 ICD Code: K92.0 - HEMATEMESIS Status: Acute Priority: High Current Visit: No Qualifiers: Nausea presence: with nausea Qualified Code(s): K92.0 - Hematemesis (3) OTILIA (acute kidney injury) SNOMED Code(s): 26564773, 99212533 ICD Code: N17.9 - ACUTE KIDNEY FAILURE, UNSPECIFIED Status: Acute Current Visit: No (4) Poorly-controlled hypertension SNOMED Code(s): 694402906 ICD Code: I10 - ESSENTIAL (PRIMARY) HYPERTENSION Status: Acute Current Visit: No (5) Anemia in chronic kidney disease (CKD) SNOMED Code(s): 872285961 ICD Code: N18.9 - CHRONIC KIDNEY DISEASE, UNSPECIFIED; D63.1 - ANEMIA IN CHRONIC KIDNEY DISEASE Status: Chronic Priority: High Current Visit: No Qualifiers: Chronic kidney disease stage: stage 3 (moderate) Qualified Code(s): N18.3 - Chronic kidney disease, stage 3 (moderate); D63.1 - Anemia in chronic kidney disease (6) Blind right eye SNOMED Code(s): 597218419 ICD Code: H54.40 - BLINDNESS, ONE EYE, UNSPECIFIED EYE Status: Chronic Priority: Medium Current Visit: No (7) History of CVA (cerebrovascular accident) SNOMED Code(s): 053509590 ICD Code: Z86.73 - PRSNL HX OF TIA (TIA), AND CEREB INFRC W/O RESID DEFICITS Status: Chronic Current Visit: No (8) History of GI bleed SNOMED Code(s): 942305386 ICD Code: Z87.19 - PERSONAL HISTORY OF OTHER DISEASES OF THE DIGESTIVE SYSTEM Status: Chronic Current Visit: No (9) Hx MRSA infection SNOMED Code(s): 053118881, 222314098 ICD Code: Z86.14 - PERSONAL HISTORY OF METHICILLIN RESIS STAPH INFECTION Status: Chronic Current Visit: No (10) Hx of gastroesophageal reflux (GERD) SNOMED Code(s): 23922392128656 ICD Code: Z87.19 - PERSONAL HISTORY OF OTHER DISEASES OF THE DIGESTIVE SYSTEM Status: Chronic Current Visit: No (11) Hypertension SNOMED Code(s): 60530752 ICD Code: I10 - ESSENTIAL (PRIMARY) HYPERTENSION Status: Chronic Current Visit: No Qualifiers: Hypertension type: essential hypertension Qualified Code(s): I10 - Essential (primary) hypertension Problem List Initiated/Reviewed/Updated: Yes Orders Last 24hrs: Active Orders 24 hr Category Date Time Status Patient Status [ADT] Stat ADT 08/30/19 23:19 Active Antiembolic Devices [RC] PER UNIT ROUTINE Care 08/30/19 23:44 Active Blood Glucose Check, Bedside [RC] WITHMEALSANDBED Care 08/30/19 23:43 Active Cardiac Monitoring [RC] . DIRECTED Care 08/30/19 21:39 Active Oxygen Therapy [RC] PRN Care 08/30/19 23:43 Active RT Aerosol Therapy [RC] ASDIRECTED Care 08/30/19 23:48 Active VTE/DVT Education [RC] PER UNIT ROUTINE Care 08/30/19 23:43 Active Vital Signs [RC] Q4H Care 08/30/19 23:43 Active Albuterol/Ipratropium [DuoNeb 3.0-0.5 MG/3 ML] Med 08/30/19 23:43 Active 3 ml NEB Q4HRRT PRN Doxazosin [Cardura] Med 08/31/19 21:00 Active 4 mg PO BEDTIME Insulin Aspart [NovoLOG] Med 08/31/19 07:30 Active See Protocol SUBCUT TIDAC Insulin Glarg,Human.Rec.Analog [LantUS Solostar] Med 08/30/19 23:52 Active 17 units SUBCUT BEDTIME Metoclopramide [Reglan] Med 08/30/19 23:43 Active 5 mg IVPUSH Q4H PRN Metoprolol Succinate [Toprol XL] Med 08/30/19 23:45 Active 200 mg PO DAILY Morphine Med 08/31/19 01:51 Active 4 mg IVPUSH Q4H PRN Pantoprazole [ProTONIX IV] 80 mg Med 08/30/19 21:45 Active Sodium Chloride 0.9% [Normal Saline] 100 ml IV .Continuous Sodium Chloride 0.9% [Normal Saline] 1,000 ml Med 08/30/19 23:30 Active IV ASDIRECTED Sodium Chloride 0.9% [Saline Flush] Med 08/30/19 21:39 Active 10 ml FLUSH ASDIRECTED PRN Sodium Chloride 0.9% [Saline Flush] Med 08/30/19 21:39 Active 2.5 ml FLUSH ASDIRECTED PRN Spironolactone [Aldactone] Med 08/30/19 23:45 Active 25 mg PO BIDDIURETIC Sucralfate [Carafate] Med 08/31/19 07:30 Active 1 gm PO QIDACANDBED amLODIPine [Norvasc] Med 08/31/19 21:00 Active 10 mg PO BEDTIME atorvaSTATin [Lipitor] Med 08/31/19 21:00 Active 80 mg PO BEDTIME diphenhydrAMINE [Benadryl] Med 08/31/19 00:01 Active 15 mg IM Q6H PRN hydrALAZINE [Apresoline] Med 08/30/19 23:49 Active 20 mg IVPUSH Q4H PRN hydroCHLOROthiazide Med 08/31/19 09:00 Active 25 mg PO DAILY Saline Lock Insert [OM.PC] Stat Oth 08/30/19 21:38 Ordered Sequential Compression Device [OM.PC] Per Unit Routine Oth 08/30/19 23:43 Ordered Resuscitation Status Routine Resus Stat 08/30/19 23:43 Ordered Medication Orders Albuterol/Ipratropium (Duoneb 3.0-0.5 Mg/3 Ml) 3 ml NEB Q4HRRT PRN PRN Reason: Shortness Of Breath/wheezing Amlodipine Besylate (Norvasc) 10 mg PO BEDTIME MICHAEL Atorvastatin Calcium (Lipitor) 80 mg PO BEDTIME MICHAEL Diphenhydramine HCl (Benadryl) 15 mg IM Q6H PRN PRN Reason: Nausea/Vomiting Last Admin: 08/31/19 00:43 Dose: 15 mg Doxazosin Mesylate (Cardura) 4 mg PO BEDTIME MICHAEL Hydralazine HCl (Apresoline) 20 mg IVPUSH Q4H PRN PRN Reason: Hypertension Last Admin: 08/31/19 00:39 Dose: 20 mg Hydrochlorothiazide (Hydrochlorothiazide) 25 mg PO DAILY MICHAEL Pantoprazole Sodium 80 mg/ (Sodium Chloride) 100 mls @ 10 mls/hr IV .Continuous MICHAEL Last Admin: 08/30/19 22:45 Dose: 10 mls/hr Sodium Chloride (Normal Saline) 1,000 mls @ 125 mls/hr IV ASDIRECTED MICHAEL Last Admin: 08/31/19 04:17 Dose: 125 mls/hr Infusion: 08/31/19 04:17 Dose: 125 mls/hr Admin: 08/30/19 23:40 Dose: 125 mls/hr Insulin Aspart (Novolog) 0 unit SUBCUT TIDAC [facility]; Protocol Last Admin: 08/31/19 08:09 Dose: Not Given Insulin Glargine (Lantus Solostar) 17 units SUBCUT BEDTIME [facility] Last Admin: 08/31/19 00:36 Dose: 17 units Metoclopramide HCl (Reglan) 5 mg IVPUSH Q4H PRN PRN Reason: Nausea/Vomiting Last Admin: 08/31/19 00:34 Dose: 5 mg Metoprolol Succinate (Toprol Xl) 200 mg PO DAILY [facility] Last Admin: 08/31/19 00:32 Dose: 200 mg Morphine Sulfate (Morphine) 4 mg IVPUSH Q4H PRN PRN Reason: Pain Last Admin: 08/31/19 02:19 Dose: 4 mg Sodium Chloride (Saline Flush) 10 ml FLUSH ASDIRECTED PRN PRN Reason: Keep Vein Open Sodium Chloride (Saline Flush) 2.5 ml FLUSH ASDIRECTED PRN PRN Reason: Keep Vein Open Spironolactone (Aldactone) 25 mg PO BIDDIURETIC [facility] Last Admin: 08/31/19 08:03 Dose: 25 mg Admin: 08/31/19 00:32 Dose: 25 mg Sucralfate (Carafate) 1 gm PO QIDACANDBED [facility] Last Admin: 08/31/19 08:03 Dose: 1 gm Assessment/Plan Comment:: This 34 year old male admitted with suspecte GI bleed and gastroparesis 1. GI bleed: Suspected, hgb stable, did receive fluids overnight, monitor closely. No vomiting or dark stools since admission. Continue Protonix. Advance diet to CL today. 2. Gastroparesis: This morning no further nausea or pain. Continue to monitor. Continue Reglan. 3. HTN: Stable, continue home medications. Hold IVFs for now. 4. DM Type 1: Lantus cut in half for now. Continue Novolog SSI with meals. VTE prophylaxis: SCDs and ambulation Dispo: 1-2 days. - Mortality Measure Prognosis:: Good
[2019-08-31] MEDS ORDERED: FERROUS SULFATE 324 MG PO SCH (09:00)
[2019-08-31] MEDS: Hydrochlorothiazide 25 MG Tab PO SCH (10:06)
[2019-08-31] MEDS ORDERED: atorvaSTATin 40 MG Tab PO SCH (21:00)
[2019-08-31] MEDS ORDERED: Doxazosin 4 MG Tab PO SCH (21:00)
[2019-08-31] MEDS ORDERED: amLODIPine 5 MG Tab PO SCH (21:00)
[2019-08-31] MEDS: Pantoprazole 40 MG in Sodium Chloride 0.9% 10 ML IV SCH (21:40)
[2019-08-31] MEDS ORDERED: Insulin Regular, Human 100 Units/ML 10 ML Vial SUBCUT ONE ×2 (22:36→23:22)
[2019-09-01] MEDS ORDERED: 50% Dextrose in Water 50 ML Syringe IVPUSH ONE ×2 (03:13→09:39)
[2019-09-01] MEDS ORDERED: 50% Dextrose in Water 50 ML Syringe ONE (03:17)
[2019-09-01 06:07] LABS: CARBON DIOXIDE,CO2 22.4 mmol/L (21.0-32.0); POTASSIUM,K 4.2 mmol/L (3.5-5.1)
[2019-09-01] MEDS: Insulin Aspart 100 Units/ML 3 ML Pen SUBCUT SCH ×4 (06:47→18:07)
[2019-09-01] MEDS: Sucralfate Suspension 1 GM/10 ML Cup PO SCH ×3 (06:47→17:14)
[2019-09-01] MEDS ORDERED: Dextrose 5%-0.45% NaCl 1,000 ML IV ONE (10:00)
[2019-09-01] MEDS: Metoprolol Succinate 100 MG Tab.ER PO SCH (10:26)
[2019-09-01] MEDS: Hydrochlorothiazide 25 MG Tab PO SCH (10:26)
[2019-09-01] MEDS: Pantoprazole 40 MG in Sodium Chloride 0.9% 10 ML IV SCH (10:29)
[2019-09-01] MEDS: Spironolactone 25 MG Tab PO SCH ×2 (10:32→14:05)
--- NOTE | 2019-09-01 15:07 | PCM.DCSUM1 ---
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 He is well known to this hospital and provider. He reports he started feeling ill a day ago and then last night the nausea significantly worsened. He told me he did not vomit blood but then told other providers conflicting information. He denies chest pain or SOB. No abdominal pain. No black or bloody BMs. He reports he has been taking Reglan 1- 2 times daily with meals. He was recently in [place] for similar episode and GI was not consulted. He reports smoking marijuana, but is unsure how cocaine got in his system. He denies using this. The medical dangers of cocaine were explained to him explicitly and he verbalized understanding. In the ED hgb 10.4 , BUN 40 Cr 2.7, BS 605. No DKA noted. CXR negative. He was given IVFs, pain medications and nausea medications. He was admitted for possible GI bleed with nausea and vomiting. Diagnosis: Stroke: No - Discharge Data Discharge Date: 09/01/19 Discharge Disposition: Home, Self-Care 01 Condition: Good - Referral to Home Health Primary Care Physician: PCP None - Discharge Diagnosis/Problem(s) (1) Gastroparesis due to DM SNOMED Code(s): 843405128 ICD Code: E11.43 - TYPE 2 DIABETES W DIABETIC AUTONOMIC (POLY)NEUROPATHY; K31.84 - GASTROPARESIS Status: Acute Current Visit: Yes (2) Hematemesis SNOMED Code(s): 3530654 ICD Code: K92.0 - HEMATEMESIS Status: Acute Priority: High Current Visit: No Qualifiers: Nausea presence: with nausea Qualified Code(s): K92.0 - Hematemesis (3) OTILIA (acute kidney injury) SNOMED Code(s): 14749346, 06394696 ICD Code: N17.9 - ACUTE KIDNEY FAILURE, UNSPECIFIED Status: Acute Current Visit: No (4) Poorly-controlled hypertension SNOMED Code(s): 131740332 ICD Code: I10 - ESSENTIAL (PRIMARY) HYPERTENSION Status: Acute Current Visit: No (5) Anemia in chronic kidney disease (CKD) SNOMED Code(s): 135351115 ICD Code: N18.9 - CHRONIC KIDNEY DISEASE, UNSPECIFIED; D63.1 - ANEMIA IN CHRONIC KIDNEY DISEASE Status: Chronic Priority: High Current Visit: No Qualifiers: Chronic kidney disease stage: stage 3 (moderate) Qualified Code(s): N18.3 - Chronic kidney disease, stage 3 (moderate); D63.1 - Anemia in chronic kidney disease (6) Blind right eye SNOMED Code(s): 566159771 ICD Code: H54.40 - BLINDNESS, ONE EYE, UNSPECIFIED EYE Status: Chronic Priority: Medium Current Visit: No (7) History of CVA (cerebrovascular accident) SNOMED Code(s): 348674162 ICD Code: Z86.73 - PRSNL HX OF TIA (TIA), AND CEREB INFRC W/O RESID DEFICITS Status: Chronic Current Visit: No (8) History of GI bleed SNOMED Code(s): 615597387 ICD Code: Z87.19 - PERSONAL HISTORY OF OTHER DISEASES OF THE DIGESTIVE SYSTEM Status: Chronic Current Visit: No (9) Hx MRSA infection SNOMED Code(s): 623899460, 827955878 ICD Code: Z86.14 - PERSONAL HISTORY OF METHICILLIN RESIS STAPH INFECTION Status: Chronic Current Visit: No (10) Hx of gastroesophageal reflux (GERD) SNOMED Code(s): 32636345353522 ICD Code: Z87.19 - PERSONAL HISTORY OF OTHER DISEASES OF THE DIGESTIVE SYSTEM Status: Chronic Current Visit: No (11) Hypertension SNOMED Code(s): 90467406 ICD Code: I10 - ESSENTIAL (PRIMARY) HYPERTENSION Status: Chronic Current Visit: No Qualifiers: Hypertension type: essential hypertension Qualified Code(s): I10 - Essential (primary) hypertension - Patient Instructions Diet: Diabetic Diet Activity: As Tolerated, No Strenuous Activities Driving: Do Not Drive Showering/Bathing: May Shower Notify Provider of: Fever, Increased Pain, Swelling and Redness, Drainage, Nausea and/or Vomiting - Discharge Plan *PRESCRIPTION DRUG MONITORING PROGRAM REVIEWED*: Not Applicable *COPY OF PRESCRIPTION DRUG MONITORING REPORT IN PATIENT IVELISSE: Not Applicable Home Medications: Home Meds Doxazosin [Cardura] 4 mg PO BEDTIME 09/25/17 [History] Torsemide 20 mg PO DAILY 09/25/17 [History] amLODIPine Besylate [Amlodipine Besylate] 10 mg PO BEDTIME 09/25/17 [History] Ferrous Sulfate 324 mg PO DAILY 01/20/18 [History] Insulin Glarg,Human.Rec.Analog [Lantus Solostar] 35 units SUBCUT BEDTIME [History] Insulin Aspart [NovoLOG] 0 unit SUBCUT ASDIRECTED PRN 05/23/18 [History] Spironolactone [Aldactone] 25 mg PO BID 12/14/18 [History] hydroCHLOROthiazide [Hydrochlorothiazide] 25 mg PO DAILY 12/14/18 [History] Aspirin [Halfprin] 81 mg PO DAILY #30 tab.ec 12/15/18 [Rx] Sucralfate [Carafate] 1 gm PO QIDACANDBED #120 ml 04/05/19 [Rx] Metoclopramide HCl [Reglan] 10 mg PO TID PRN #20 tablet 06/17/19 [Rx] Metoprolol Succinate 2 tab PO DAILY 06/17/19 [History] Pantoprazole Sodium [Protonix] 40 mg PO DAILY 06/17/19 [History] atorvaSTATin [Lipitor] 80 mg PO BEDTIME 06/17/19 [History] Enalapril [Vasotec] 20 mg PO BEDTIME tablet 08/01/19 [Rx] Oxygen Therapy Mode: Room Air Forms: ED Department Discharge Referrals: PCP,None [Primary Care Provider] - - Discharge Summary/Plan Comment DC Time >30 min.: No Discharge Summary/Plan Comment: Admitting Diagnoses: N/V Suspected GI bleed, coffee ground emesis Gastroparesis Discharge Diagnoses: N/V Suspected GI bleed, coffee ground emesis Gastroparesis Other PMH: HTN DM Type 1 CKD Anemia Waqas was admitted secondary to intractable nausea and vomiting, he was treated with Protonix and Zofran along with Morphine for pain. On day 2 of admission he improved significantly, he had no further emesis, Hgb remained stable and back at baseline. He was continued on his Carafate and Protonix regimen. He is feeling better today. He did have significant hypoglycemia this morning, D50 given. He at the time was CL diet and was transitioned to regular diet. He is back at baseline now. Over the last few hours, BS has remained stable with food only at 170s. He is eager to be discharged home. He is to cut back on Lantus dose tonight and monitor BS closely. He verbalizes understanding , as he is very used to monitoring BS closely. He denies any concerns, no black or bloody bowel movements. I will have him get labwork prior to follow up appointment. - Patient Data Vitals - Most Recent: Last Vital Signs Temp 98.3 F 09/01/19 12:45 Pulse 84 09/01/19 14:00 Resp 18 09/01/19 14:00 BP 162/96 H 09/01/19 14:00 Pulse Ox 99 09/01/19 14:00 Weight - Most Recent: 50.9 kg I&O - Last 24 hours: Intake & Output 08/31/19 09/01/19 09/01/19 22:59 06:59 14:59 Intake Total 800 1050 Output Total 600 800 Balance 200 250 Lab Results - Last 24 hrs: Laboratory Results - last 24 hr 08/31/19 08/31/19 08/31/19 Range/Units 06:15 17:06 17:33 WBC (4.0-11.0) K/uL RBC (4.50-5.90) M/uL Hgb (13.0-17.0) g/dL Hct (38.0-50.0) % MCV (80.0-98.0) fL MCH (27.0-32.0) pg MCHC (31.0-37.0) g/dL RDW Std Deviation (28.0-62.0) fl RDW Coeff of Dania (11.0-15.0) % Plt Count (150-400) K/uL MPV (7.40-12.00) fL Neut % (Auto) (48.0-80.0) % Lymph % (Auto) (16.0-40.0) % [place] % (Auto) (0.0-15.0) % Eos % (Auto) (0.0-7.0) % Baso % (Auto) (0.0-1.5) % Neut # (Auto) (1.4-5.7) K/uL Lymph # (Auto) (0.6-2.4) K/uL [place] # (Auto) (0.0-0.8) K/uL Eos # (Auto) (0.0-0.7) K/uL Baso # (Auto) (0.0-0.1) K/uL Sodium (136-148) mmol/L Potassium (3.5-5.1) mmol/L Chloride (98-107) mmol/L Carbon Dioxide (21.0-32.0) mmol/L BUN (7.0-18.0) mg/dL Creatinine (0.8-1.3) mg/dL Est Cr Clr Drug Dosing mL/min Estimated GFR (MDRD) ml/min Glucose 37 L* (74-106) mg/dL POC Glucose 30 L 81 (60-110) mg/dL Calcium (8.5-10.1) mg/dL Iron (50-175) ug/dL 08/31/19 09/01/19 09/01/19 Range/Units 21:35 03:04 03:36 WBC (4.0-11.0) K/uL RBC (4.50-5.90) M/uL Hgb (13.0-17.0) g/dL Hct (38.0-50.0) % MCV (80.0-98.0) fL MCH (27.0-32.0) pg MCHC (31.0-37.0) g/dL RDW Std Deviation (28.0-62.0) fl RDW Coeff of Dania (11.0-15.0) % Plt Count (150-400) K/uL MPV (7.40-12.00) fL Neut % (Auto) (48.0-80.0) % Lymph % (Auto) (16.0-40.0) % [place] % (Auto) (0.0-15.0) % Eos % (Auto) (0.0-7.0) % Baso % (Auto) (0.0-1.5) % Neut # (Auto) (1.4-5.7) K/uL Lymph # (Auto) (0.6-2.4) K/uL [place] # (Auto) (0.0-0.8) K/uL Eos # (Auto) (0.0-0.7) K/uL Baso # (Auto) (0.0-0.1) K/uL Sodium (136-148) mmol/L Potassium (3.5-5.1) mmol/L Chloride (98-107) mmol/L Carbon Dioxide (21.0-32.0) mmol/L BUN (7.0-18.0) mg/dL Creatinine (0.8-1.3) mg/dL Est Cr Clr Drug Dosing mL/min Estimated GFR (MDRD) ml/min Glucose (74-106) mg/dL POC Glucose 113 H 26 L 199 H (60-110) mg/dL Calcium (8.5-10.1) mg/dL Iron (50-175) ug/dL 09/01/19 09/01/19 09/01/19 Range/Units 05:43 05:43 05:43 WBC 8.21 (4.0-11.0) K/uL RBC 4.02 L (4.50-5.90) M/uL Hgb 8.8 L (13.0-17.0) g/dL Hct 26.9 L (38.0-50.0) % MCV 66.9 L (80.0-98.0) fL MCH 21.9 L (27.0-32.0) pg MCHC 32.7 (31.0-37.0) g/dL RDW Std Deviation 37.7 (28.0-62.0) fl RDW Coeff of Dania 16 H (11.0-15.0) % Plt Count 299 (150-400) K/uL MPV 10.20 (7.40-12.00) fL Neut % (Auto) 71.1 (48.0-80.0) % Lymph % (Auto) 22.0 (16.0-40.0) % [place] % (Auto) 5.2 (0.0-15.0) % Eos % (Auto) 1.2 (0.0-7.0) % Baso % (Auto) 0.5 (0.0-1.5) % Neut # (Auto) 5.8 H (1.4-5.7) K/uL Lymph # (Auto) 1.8 (0.6-2.4) K/uL [place] # (Auto) 0.4 (0.0-0.8) K/uL Eos # (Auto) 0.1 (0.0-0.7) K/uL Baso # (Auto) 0.0 (0.0-0.1) K/uL Sodium 137 (136-148) mmol/L Potassium 4.2 (3.5-5.1) mmol/L Chloride 104 (98-107) mmol/L Carbon Dioxide 22.4 (21.0-32.0) mmol/L BUN 24 H (7.0-18.0) mg/dL Creatinine 2.3 H (0.8-1.3) mg/dL Est Cr Clr Drug Dosing 32.89 mL/min Estimated GFR (MDRD) 32.9 ml/min Glucose 228 H (74-106) mg/dL POC Glucose (60-110) mg/dL Calcium 8.2 L (8.5-10.1) mg/dL Iron 75 (50-175) ug/dL 09/01/19 09/01/19 09/01/19 Range/Units 06:24 08:13 09:41 WBC (4.0-11.0) K/uL RBC (4.50-5.90) M/uL Hgb (13.0-17.0) g/dL Hct (38.0-50.0) % MCV (80.0-98.0) fL MCH (27.0-32.0) pg MCHC (31.0-37.0) g/dL RDW Std Deviation (28.0-62.0) fl RDW Coeff of Dania (11.0-15.0) % Plt Count (150-400) K/uL MPV (7.40-12.00) fL Neut % (Auto) (48.0-80.0) % Lymph % (Auto) (16.0-40.0) % [place] % (Auto) (0.0-15.0) % Eos % (Auto) (0.0-7.0) % Baso % (Auto) (0.0-1.5) % Neut # (Auto) (1.4-5.7) K/uL Lymph # (Auto) (0.6-2.4) K/uL [place] # (Auto) (0.0-0.8) K/uL Eos # (Auto) (0.0-0.7) K/uL Baso # (Auto) (0.0-0.1) K/uL Sodium (136-148) mmol/L Potassium (3.5-5.1) mmol/L Chloride (98-107) mmol/L Carbon Dioxide (21.0-32.0) mmol/L BUN (7.0-18.0) mg/dL Creatinine (0.8-1.3) mg/dL Est Cr Clr Drug Dosing mL/min Estimated GFR (MDRD) ml/min Glucose (74-106) mg/dL POC Glucose 191 H 86 26 L (60-110) mg/dL Calcium (8.5-10.1) mg/dL Iron (50-175) ug/dL 09/01/19 09/01/19 09/01/19 Range/Units 09:50 10:47 12:09 WBC (4.0-11.0) K/uL RBC (4.50-5.90) M/uL Hgb (13.0-17.0) g/dL Hct (38.0-50.0) % MCV (80.0-98.0) fL MCH (27.0-32.0) pg MCHC (31.0-37.0) g/dL RDW Std Deviation (28.0-62.0) fl RDW Coeff of Dania (11.0-15.0) % Plt Count (150-400) K/uL MPV (7.40-12.00) fL Neut % (Auto) (48.0-80.0) % Lymph % (Auto) (16.0-40.0) % [place] % (Auto) (0.0-15.0) % Eos % (Auto) (0.0-7.0) % Baso % (Auto) (0.0-1.5) % Neut # (Auto) (1.4-5.7) K/uL Lymph # (Auto) (0.6-2.4) K/uL [place] # (Auto) (0.0-0.8) K/uL Eos # (Auto) (0.0-0.7) K/uL Baso # (Auto) (0.0-0.1) K/uL Sodium (136-148) mmol/L Potassium (3.5-5.1) mmol/L Chloride (98-107) mmol/L Carbon Dioxide (21.0-32.0) mmol/L BUN (7.0-18.0) mg/dL Creatinine (0.8-1.3) mg/dL Est Cr Clr Drug Dosing mL/min Estimated GFR (MDRD) ml/min Glucose (74-106) mg/dL POC Glucose 197 H 148 H 179 H (60-110) mg/dL Calcium (8.5-10.1) mg/dL Iron (50-175) ug/dL 09/01/19 Range/Units 13:31 WBC (4.0-11.0) K/uL RBC (4.50-5.90) M/uL Hgb (13.0-17.0) g/dL Hct (38.0-50.0) % MCV (80.0-98.0) fL MCH (27.0-32.0) pg MCHC (31.0-37.0) g/dL RDW Std Deviation (28.0-62.0) fl RDW Coeff of Dania (11.0-15.0) % Plt Count (150-400) K/uL MPV (7.40-12.00) fL Neut % (Auto) (48.0-80.0) % Lymph % (Auto) (16.0-40.0) % [place] % (Auto) (0.0-15.0) % Eos % (Auto) (0.0-7.0) % Baso % (Auto) (0.0-1.5) % Neut # (Auto) (1.4-5.7) K/uL Lymph # (Auto) (0.6-2.4) K/uL [place] # (Auto) (0.0-0.8) K/uL Eos # (Auto) (0.0-0.7) K/uL Baso # (Auto) (0.0-0.1) K/uL Sodium (136-148) mmol/L Potassium (3.5-5.1) mmol/L Chloride (98-107) mmol/L Carbon Dioxide (21.0-32.0) mmol/L BUN (7.0-18.0) mg/dL Creatinine (0.8-1.3) mg/dL Est Cr Clr Drug Dosing mL/min Estimated GFR (MDRD) ml/min Glucose (74-106) mg/dL POC Glucose 161 H (60-110) mg/dL Calcium (8.5-10.1) mg/dL Iron (50-175) ug/dL Med Orders - Current: Current Medications Albuterol/Ipratropium (Duoneb 3.0-0.5 Mg/3 Ml) 3 ml NEB Q4HRRT PRN PRN Reason: Shortness Of Breath/wheezing Amlodipine Besylate (Norvasc) 10 mg PO BEDTIME MICHAEL Last Admin: 08/31/19 21:38 Dose: 10 mg Atorvastatin Calcium (Lipitor) 80 mg PO BEDTIME MICHAEL Last Admin: 08/31/19 21:39 Dose: 80 mg Diphenhydramine HCl (Benadryl) 15 mg IM Q6H PRN PRN Reason: Nausea/Vomiting Last Admin: 08/31/19 00:43 Dose: 15 mg Doxazosin Mesylate (Cardura) 4 mg PO BEDTIME MICHAEL Last Admin: 08/31/19 21:39 Dose: 4 mg Hydralazine HCl (Apresoline) 20 mg IVPUSH Q4H PRN PRN Reason: Hypertension Last Admin: 08/31/19 00:39 Dose: 20 mg Hydrochlorothiazide (Hydrochlorothiazide) 25 mg PO DAILY [facility] Last Admin: 09/01/19 10:26 Dose: 25 mg Pantoprazole Sodium 40 mg/ (Sodium Chloride) 10 mls @ 300 mls/hr IV Q12H MICHAEL Last Admin: 09/01/19 10:29 Dose: 300 mls/hr Insulin Aspart (Novolog) 0 unit SUBCUT TIDAC [facility]; Protocol Last Admin: 09/01/19 11:46 Dose: Not Given Insulin Glargine (Lantus Solostar) 17 units SUBCUT BEDTIME [facility] Last Admin: 08/31/19 21:41 Dose: 17 units Metoclopramide HCl (Reglan) 5 mg IVPUSH Q4H PRN PRN Reason: Nausea/Vomiting Last Admin: 08/31/19 00:34 Dose: 5 mg Metoprolol Succinate (Toprol Xl) 200 mg PO DAILY [facility] Last Admin: 09/01/19 10:26 Dose: 200 mg Morphine Sulfate (Morphine) 4 mg IVPUSH Q4H PRN PRN Reason: Pain Last Admin: 08/31/19 02:19 Dose: 4 mg Sodium Chloride (Saline Flush) 10 ml FLUSH ASDIRECTED PRN PRN Reason: Keep Vein Open Sodium Chloride (Saline Flush) 2.5 ml FLUSH ASDIRECTED PRN PRN Reason: Keep Vein Open Spironolactone (Aldactone) 25 mg PO BIDDIURETIC [facility] Last Admin: 09/01/19 14:05 Dose: 25 mg Sucralfate (Carafate) 1 gm PO QIDACANDBED [facility] Last Admin: 09/01/19 12:42 Dose: 1 gm Discontinued Medications Dextrose/Water (Dextrose 50% In Water) 50 ml IVPUSH ONETIME ONE Stop: 09/01/19 03:14 Last Admin: 09/01/19 03:13 Dose: 50 ml Dextrose/Water (Dextrose 50% In Water) Confirm Administered Dose 50 ml .ROUTE .STK-MED ONE Stop: 09/01/19 03:18 Last Admin: 09/01/19 05:00 Dose: Not Given Dextrose/Water (Dextrose 50% In Water) 50 ml IVPUSH ONETIME ONE Stop: 09/01/19 09:40 Last Admin: 09/01/19 10:54 Dose: 50 ml Diphenhydramine HCl (Benadryl) 50 mg IVPUSH ONETIME ONE Stop: 08/30/19 21:40 Last Admin: 08/30/19 21:59 Dose: 50 mg Hydralazine HCl (Apresoline) 10 mg IVPUSH ONETIME ONE Stop: 08/30/19 22:32 Last Admin: 08/30/19 22:40 Dose: 10 mg Pantoprazole Sodium 80 mg/ (Sodium Chloride) 20 mls @ 420 mls/hr IVPUSH ONETIME ONE Stop: 08/30/19 21:42 Last Admin: 08/30/19 22:07 Dose: 420 mls/hr Pantoprazole Sodium 80 mg/ (Sodium Chloride) 100 mls @ 10 mls/hr IV .Continuous [facility] Last Admin: 08/30/19 22:45 Dose: 10 mls/hr Sodium Chloride (Normal Saline) 1,000 mls @ 999 mls/hr IV STAT ONE Stop: 08/30/19 22:39 Last Admin: 08/30/19 21:50 Dose: 999 mls/hr Sodium Chloride (Normal Saline) 1,000 mls @ 125 mls/hr IV ASDIRECTED [facility] Last Admin: 08/31/19 04:17 Dose: 125 mls/hr Sodium Chloride (Normal Saline) 1,000 mls @ 125 mls/hr IV ASDIRECTED [facility] Dextrose/Sodium Chloride (Dextrose 5%-1/2 Ns) 1,000 mls @ 75 mls/hr IV NOW ONE Stop: 09/01/19 23:19 Last Admin: 09/01/19 10:17 Dose: 75 mls/hr Insulin Human Regular (Novolin R) 15 unit SUBCUT ONETIME ONE; Protocol Stop: 08/31/19 22:37 Insulin Human Regular (Novolin R) 15 unit SUBCUT ONETIME ONE; Protocol Stop: 08/30/19 22:37 Last Admin: 08/30/19 22:59 Dose: 15 units Insulin Human Regular (Novolin R) Confirm Administered Dose 1,000 unit .ROUTE .STK-MED ONE Stop: 08/30/19 22:56 Last Admin: 08/30/19 23:02 Dose: Not Given Insulin Human Regular (Novolin R) 15 unit SUBCUT ONETIME ONE; Protocol Stop: 08/31/19 23:23 Insulin Human Regular (Novolin R) 15 unit SUBCUT ONETIME ONE; Protocol Stop: 08/30/19 23:29 Last Admin: 08/30/19 23:30 Dose: 15 unit Lorazepam (Ativan) 1 mg IVPUSH ONETIME ONE Stop: 08/30/19 21:40 Last Admin: 08/30/19 21:59 Dose: 1 mg Metoclopramide HCl (Reglan) 10 mg IV ONETIME ONE Stop: 08/30/19 21:40 Last Admin: 08/30/19 21:59 Dose: 10 mg Non-Formulary Medication (Ferrous Sulfate) 324 mg PO DAILY [facility] Ondansetron HCl (Zofran) 4 mg IVPUSH ONETIME ONE Stop: 08/30/19 21:40 Last Admin: 08/30/19 22:06 Dose: 4 mg
[2019-09-01] MEDS: hydrALAZINE 20 MG/ML SDV IVPUSH PRN (17:09)
[2019-09-01 19:08] VITALS: BP 161/92; PULSE 91
== END 2019-09-01 18:20 | disposition home or self-care (01) ==
LOC: MW.ED 21:32 → MW.MS 23:25
PROVIDERS: ADMIT Student in an Organized Health Care Education/Training Program; ATTEND Student in an Organized Health Care Education/Training Program
DX: E10.43 Type 1 diabetes mellitus with diabetic autonomic (poly)neuropathy (principal); K31.84 Gastroparesis; N17.9 Acute kidney failure, unspecified; I12.9 Hypertensive chronic kidney disease with stage 1 through stage 4 chronic kidney disease, or unspecified chronic kidney disease; E10.22 Type 1 diabetes mellitus with diabetic chronic kidney disease; N18.9 Chronic kidney disease, unspecified; D63.1 Anemia in chronic kidney disease; K92.0 Hematemesis; K21.9 Gastro-esophageal reflux disease without esophagitis; H54.7 Unspecified visual loss; Z88.0 Allergy status to penicillin; Z91.013 Allergy to seafood; Z91.018 Allergy to other foods; Z91.048 Other nonmedicinal substance allergy status; Z79.82 Long term (current) use of aspirin; Z79.899 Other long term (current) drug therapy
CPT/HCPCS: 36415; 74022; 74022-26; 80048; 80053; 80305-QW; 81001; 82009; 82150; 82803; 82962; 83540; 83690; 83735; 84100; 85025; 85610; 86850; 86900; 86901; 93005; A9270-GY; C9113; J0360; J1200; J1815-GY; J2060; J2270; J2405; J2765; J7030; J7042; J7050

== ENCOUNTER 2019-09-24 14:24 | Emergency (ER) | payer MEDICAID, OTHER ==
[2019-09-24] MEDS ORDERED: Sodium Chloride 0.9% 1,000 ML IV ONE ×2 (14:58→16:47)
[2019-09-24] MEDS ORDERED: Ondansetron 4 MG/2 ML SDV IVPUSH ONE (14:59)
[2019-09-24 15:41] LABS: CARBON DIOXIDE,CO2 25.6 mmol/L (21.0-32.0)
[2019-09-24] MEDS ORDERED: Hydrochlorothiazide 25 MG Tab PO ONE (16:22)
[2019-09-24] MEDS ORDERED: amLODIPine 5 MG Tab PO ONE (16:24)
[2019-09-24] MEDS ORDERED: hydrALAZINE 20 MG/ML SDV IVPUSH ONE (17:52)
[2019-09-24] MEDS ORDERED: Pantoprazole 40 MG in Sodium Chloride 0.9% 10 ML IV ONE (18:30)
--- NOTE | 2019-09-24 18:30 | EDM.PDOC ---
ED HPI GENERAL MEDICAL PROBLEM - General Chief Complaint: Gastrointestinal Problem Stated Complaint: VOMITING Time Seen by Provider: 09/24/19 16:25 Source of Information: Reports: Patient History Limitations: Reports: No Limitations - History of Present Illness INITIAL COMMENTS - FREE TEXT/NARRATIVE: This 34 year old male is admitted to the ED with a chief complaint of nausea and vomiting since this morning. He states that he has vomited 15-18 times and that he is not able to keep anything down including his blood pressure medications. He has a history of GERD and that he gets these vomiting episodes from time to time. He states that he has been admitted in the past when he has let the vomiting go on for a few days and that he is here because he does not want to see this happen again. Onset: Today Duration: Getting Worse Severity: Moderate Associated Symptoms: Reports: No Other Symptoms abd pain Pain Score (Numeric/FACES): 6 - Related Data Allergies Allergy/AdvReac Type Severity Reaction Status Date / Time shrimp Allergy Severe Swelling Verified 09/24/19 14:30 iodine Allergy Unknown Anaphylactic Verified 09/24/19 14:30 Shock Penicillins Allergy Unknown Anaphylactic Verified 09/24/19 14:30 Shock shellfish derived Allergy Anaphylactic Verified 09/24/19 14:30 Shock gluten Allergy Unknown Muscle Uncoded 09/24/19 14:30 Aches Home Meds: Home Meds Insulin Glarg,Human.Rec.Analog [Lantus Solostar] 35 units SUBCUT BEDTIME [History] Insulin Aspart [NovoLOG] 0 unit SUBCUT ASDIRECTED PRN 05/23/18 [History] Sulfamethoxazole/Trimethoprim [Bactrim Ds Tablet] 1 tab PO ASDIRECTED 09/24/19 [ History] cephALEXin [Keflex] 500 mg PO ASDIRECTED 09/24/19 [History] Past Medical History - Past Health History Medical/Surgical History: Denies Medical/Surgical History HEENT History: Reports: Impaired Vision Other HEENT History: blind right eye Cardiovascular History: Reports: Hypertension Respiratory History: Reports: None Gastrointestinal History: Reports: Gastritis, GERD, Hiatal Hernia, Other (See Below) Other Gastrointestinal History: h/o gastric ulcers, h/o hiatal hernia; gastroparesis Genitourinary History: Reports: Chronic Renal Insuffiency, Diabetic Nephropathy Musculoskeletal History: Reports: Amputation Neurological History: Reports: Neuropathy, Peripheral Other Neuro History: stroke 3 months ago Psychiatric History: Reports: Anxiety Endocrine/Metabolic History: Reports: Diabetes, Type I Other Endocrine/Metabolic History: brittle diabetic. 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 - Past Surgical History Head Surgeries/Procedures: Reports: None Musculoskeletal Surgical History: Reports: Other (See Below) Other Musculoskeletal Surgeries/Procedures:: right BKA Social & Family History - Family History Family Medical History: Noncontributory Cardiac: Reports: High Cholesterol, Hypertension OBGYN: Reports: Neurological: Reports: None - Tobacco Use Smoking Status *Q: Never Smoker - Caffeine Use Caffeine Use: Reports: None Other Caffeine Use: daily Caffeine Use Comment: patient is uncooperated - Recreational Drug Use Recreational Drug Use: No - Living Situation & Occupation Living situation: Reports: Single Occupation: Employed (Currently unemployed.) ED ROS GENERAL - Review of Systems Review Of Systems: See Below Constitutional: Reports: Weakness HEENT: Reports: No Symptoms Respiratory: Reports: No Symptoms Cardiovascular: Reports: No Symptoms Endocrine: Reports: No Symptoms GI/Abdominal: Reports: Anorexia, Nausea, Vomiting (as noted above.). Denies: Abdominal Pain, Black Stool, Bloody Stool, Diarrhea, Hematemesis, Melena : Reports: No Symptoms Musculoskeletal: Reports: No Symptoms Skin: Reports: No Symptoms Neurological: Reports: No Symptoms Psychiatric: Reports: No Symptoms ED EXAM, GI/ABD - Physical Exam Exam: See Below Exam Limited By: No Limitations General Appearance: Alert, WD/WN, Mild Distress (vomiting at time of my evaluation (dry heaves).) Eyes: Bilateral: Normal Appearance, EOMI Ears: Normal External Exam, Normal Canal, Hearing Grossly Normal, Normal TMs Nose: Normal Inspection, Normal Mucosa, No Blood Throat/Mouth: Normal Inspection, Normal Lips, Normal Teeth, Normal Gums, Normal Oropharynx, Normal Voice, No Airway Compromise Head: Atraumatic, Normocephalic Neck: Normal Inspection, Supple, Non-Tender, Full Range of Motion Respiratory/Chest: No Respiratory Distress, Lungs Clear, Normal Breath Sounds, No Accessory Muscle Use, Chest Non-Tender Cardiovascular: Normal Peripheral Pulses, Regular Rate, Rhythm, No Edema, No Gallop, No JVD, No Murmur, No Rub GI/Abdominal Exam: Normal Bowel Sounds, Soft, Non-Tender, No Organomegaly, No Distention, No Abnormal Bruit, No Mass, Pelvis Stable. No: Mass, Hepatomegaly (Male) Exam: Deferred Rectal (Males) Exam: Deferred Back Exam: Normal Inspection, Full Range of Motion, NT Extremities: Normal Inspection, Normal Range of Motion, Non-Tender, Normal Capillary Refill, No Pedal Edema Neurological: Alert, Oriented, CN II-XII Intact, Normal Cognition, Normal Gait, Normal Reflexes, No Motor/Sensory Deficits Skin Exam: Warm, Dry, Intact, Normal Color, No Rash, Other (mild dehydration is noted.) Course - Vital Signs Text/Narrative:: The patient was re-evaluated at 6:30PM. He is much improved and has not vomited in the ED. His blood pressure has come down with Hydralizine 10mg. He will be discharged with a Rx for Zofran. He agrees with the discharge plan. Last Recorded V/S: Last Vital Signs Temp 96.9 F 09/24/19 14:28 Pulse 89 09/24/19 18:43 Resp 18 09/24/19 18:43 BP 162/101 H 09/24/19 18:43 Pulse Ox 97 09/24/19 18:43 - Orders/Labs/Meds Labs: Laboratory Tests 09/24/19 09/24/19 09/24/19 Range/Units 14:35 15:10 15:10 WBC 8.47 (4.0-11.0) K/uL RBC 4.14 L (4.50-5.90) M/uL Hgb 9.0 L (13.0-17.0) g/dL Hct 27.1 L (38.0-50.0) % MCV 65.5 L (80.0-98.0) fL MCH 21.7 L (27.0-32.0) pg MCHC 33.2 (31.0-37.0) g/dL RDW Std Deviation 36.4 (28.0-62.0) fl RDW Coeff of Dania 16 H (11.0-15.0) % Plt Count 320 (150-400) K/uL MPV 10.70 (7.40-12.00) fL Neut % (Auto) 70.3 (48.0-80.0) % Lymph % (Auto) 19.8 (16.0-40.0) % [place] % (Auto) 6.6 (0.0-15.0) % Eos % (Auto) 2.6 (0.0-7.0) % Baso % (Auto) 0.7 (0.0-1.5) % Neut # (Auto) 6.0 H (1.4-5.7) K/uL Lymph # (Auto) 1.7 (0.6-2.4) K/uL [place] # (Auto) 0.6 (0.0-0.8) K/uL Eos # (Auto) 0.2 (0.0-0.7) K/uL Baso # (Auto) 0.1 (0.0-0.1) K/uL Sodium 142 (136-148) mmol/L Potassium 5.0 (3.5-5.1) mmol/L Chloride 108 H (98-107) mmol/L Carbon Dioxide 25.6 (21.0-32.0) mmol/L BUN 34 H (7.0-18.0) mg/dL Creatinine 3.0 H (0.8-1.3) mg/dL Est Cr Clr Drug Dosing 35.02 mL/min Estimated GFR (MDRD) 24.2 ml/min Glucose 124 H (74-106) mg/dL POC Glucose 128 H (60-110) mg/dL Calcium 8.5 (8.5-10.1) mg/dL Total Bilirubin 0.1 L (0.2-1.0) mg/dL AST 26 (15-37) IU/L ALT 33 (14-63) IU/L Alkaline Phosphatase 109 (46-116) U/L Total Protein 5.9 L (6.4-8.2) g/dL Albumin 2.2 L (3.4-5.0) g/dL Globulin 3.7 (2.6-4.0) g/dL Albumin/Globulin Ratio 0.6 L (0.9-1.6) Lipase 40 L (73-393) U/L Meds: Medications Discontinued Medications Generic Name Dose Route Start Last Admin Trade Name Lynn PRN Reason Stop Dose Admin Amlodipine Besylate 10 mg 09/24/19 16:24 09/24/19 17:01 Norvasc PO 09/24/19 16:25 10 mg ONETIME ONE Administration Hydralazine HCl 10 mg 09/24/19 17:52 09/24/19 18:14 Apresoline IVPUSH 09/24/19 17:53 10 mg ONETIME ONE Administration Hydrochlorothiazide 25 mg 09/24/19 16:22 09/24/19 16:46 Hydrochlorothiazide PO 09/24/19 16:23 25 mg ONETIME ONE Administration Sodium Chloride 1,000 mls @ 1,000 mls/hr 09/24/19 14:58 09/24/19 15:18 Normal Saline IV 09/24/19 15:57 1,000 mls/hr .Bolus ONE Administration Sodium Chloride 1,000 mls @ 999 mls/hr 09/24/19 16:47 09/24/19 17:01 Normal Saline IV 09/24/19 17:47 999 mls/hr .Bolus ONE Administration Pantoprazole Sodium 40 mg/ 10 mls @ 300 mls/hr 09/24/19 18:30 09/24/19 18:44 Sodium Chloride IV 09/24/19 18:31 300 mls/hr NOW ONE Administration Ondansetron HCl 4 mg 09/24/19 14:59 09/24/19 15:19 Zofran IVPUSH 09/24/19 15:00 4 mg ONETIME ONE Administration Departure - Departure Time of Disposition: 19:01 Disposition: Home, Self-Care 01 Condition: Good Clinical Impression: Dehydration, mild, Emesis, persistent - Discharge Information *PRESCRIPTION DRUG MONITORING PROGRAM REVIEWED*: Yes *COPY OF PRESCRIPTION DRUG MONITORING REPORT IN PATIENT IVELISSE: Yes Referrals: PCP,Unobtain [Primary Care Provider] - Forms: ED Department Discharge Additional Instructions: Take all medications as directed. Rest for the next 24-36 hours. Clear liquids for the next 12-24 hours and advance your diet as tolerated. Follow up with your PCP in the next two to three days. Return to the ED if your condition gets worse or should you have any questions or concerns. The following information is given to patients seen in the emergency department who are being discharged to home. This information is to outline your options for follow-up care. We provide all patients seen in our emergency department with a follow-up referral. The need for follow-up, as well as the timing and circumstances, are variable depending upon the specifics of your emergency department visit. If you don't have a primary care physician on staff, we will provide you with a referral. We always advise you to contact your personal physician following an emergency department visit to inform them of the circumstance of the visit and for follow-up with them and/or the need for any referrals to a consulting specialist. The emergency department will also refer you to a specialist when appropriate. This referral assures that you have the opportunity for follow-up care with a specialist. All of these measure are taken in an effort to provide you with optimal care, which includes your follow-up. Under all circumstances we always encourage you to contact your private physician who remains a resource for coordinating your care. When calling for follow-up care, please make the office aware that this follow-up is from your recent emergency room visit. If for any reason you are refused follow-up, please contact the [facility] Emergency Department at and asked to speak to the emergency department charge nurse. Sepsis Event Note - Evaluation Sepsis Screening Result: No Definite Risk - Focused Exam Vital Signs: Vital Signs Temp Pulse Resp BP BP Pulse Ox 09/24/19 18:43 89 18 162/101 H 97 09/24/19 17:50 88 18 206/119 H 97 09/24/19 17:01 172/110 H 09/24/19 16:21 78 18 172/110 H 97 09/24/19 14:28 96.9 F 90 18 192/119 H 98 Date Exam was Performed: 09/24/19 Time Exam was Performed: 18:56
[2019-09-24 18:43] VITALS: PULSE 89
[2019-09-24 19:24] VITALS: BP 164/102
== END 2019-09-24 19:24 | disposition home or self-care (01) ==
LOC: MW.ED 14:24
DX: E86.0 Dehydration (principal); R11.10 Vomiting, unspecified; E10.9 Type 1 diabetes mellitus without complications; I10 Essential (primary) hypertension; Z91.013 Allergy to seafood; Z88.8 Allergy status to other drugs, medicaments and biological substances; Z88.0 Allergy status to penicillin; Z79.4 Long term (current) use of insulin
CPT/HCPCS: 36415; 80053; 82962; 83690; 85025; 96361; 96374; 96375; 99284; A9270; C9113; J0360; J2405; J7030; J7050; 99283

== ENCOUNTER 2019-09-29 16:44 | Observation (INO) | payer SELFPAY ==
[2019-09-29] MEDS ORDERED: Ondansetron 4 MG/2 ML SDV IVPUSH ONE (17:03)
[2019-09-29] MEDS ORDERED: Sodium Chloride 0.9% 10 ML Syringe FLUSH PRN (17:04)
[2019-09-29] MEDS ORDERED: Sodium Chloride 0.9% 1,000 ML IV ONE ×2 (17:04→17:55)
[2019-09-29] MEDS ORDERED: Famotidine 20 MG/2 ML SDV IVPUSH ONE (17:04)
[2019-09-29] MEDS ORDERED: Sodium Chloride 0.9% 2.5 ML Syringe FLUSH PRN (17:04)
[2019-09-29] MEDS ORDERED: Haloperidol Lactate 5 MG/ML SDV IM ONE (17:24)
--- NOTE | 2019-09-29 17:29 | EDM.PDOC ---
ED [facility] GENERAL MEDICAL PROBLEM - General Chief Complaint: Gastrointestinal Problem Stated Complaint: STOMACH PAIN,VOMITTING Time Seen by Provider: 09/29/19 17:27 Source of Information: Reports: Patient History Limitations: Reports: No Limitations - History of Present Illness INITIAL COMMENTS - FREE TEXT/NARRATIVE: Patient is a 34-year-old male with a past medical history of uncontrolled diabetes, gastritis, marijuana and cocaine abuse presenting with a chief complaint of epigastric pain and vomiting. Patient states his symptoms started this morning. And he has been experiencing copious cyclical vomiting all morning. Patient states he feels burning in his epigastric area which radiates up into the chest. Patient denies any fevers, chills, diarrhea. Nothing makes the pain better or worse. Patient has experienced the symptoms in the past. Patient does admit to alcohol and marijuana use yesterday. Symptoms are severe in nature and unremitting. In addition to that documented in the HPI above, the additional ROS was obtained : Constitutional: Denies fevers or chills Eyes: Denies vision changes ENMT: Denies sore throat CV: Denies chest pain Resp: Denies SOB GI: Per HPI : Denies painful urination MSK: Denies recent trauma Skin: Denies new rashes Neuro: Denies new numbness or tingling or weakness Endocrine: Denies unexpected weight loss Heme: Denies bleeding disorders I have reviewed the triage vital signs Const: Rocking in bed, several episodes of active vomiting. Vomiting is nonbloody nonbilious Eyes: PERRL, no conjunctival injection HENT: NCAT, Neck supple without meningismus CV: RRR, Warm, well-perfused extremities RESP: CTAB, Unlabored respiratory effort GI: soft, non-tender, non-distended, no masses MSK: No gross deformities appreciated Skin: Warm, dry. No rashes Neuro: Alert, healthcare facility administrator II-XII grossly intact. Sensation and motor function of extremities grossly intact. Psych: Appropriate mood and affect Assessment and plan: Patient 34-year-old male presenting with a chief complaint of vomiting in the emergency department. Patient had labs done which do not demonstrate any evidence of DKA. Patient had persistent vomiting despite my multiple rounds of antiemetics. Patient given 2 L of IV fluids in the emergency department for dehydration. Patient exhibited persistent vomiting and there are concerns that he will not be able to tolerate p.o. and persist. Proceeding to DKA. Patient will be placed in observation to the hospitalist service for IV hydration and electrolyte monitoring. Abdominal Pain Pain Score (Numeric/FACES): 8 - Related Data Allergies Allergy/AdvReac Type Severity Reaction Status Date / Time shrimp Allergy Severe Swelling Verified 09/29/19 16:57 iodine Allergy Unknown Anaphylactic Verified 09/29/19 16:57 Shock Penicillins Allergy Unknown Anaphylactic Verified 09/29/19 16:57 Shock shellfish derived Allergy Anaphylactic Verified 09/29/19 16:57 Shock gluten Allergy Unknown Muscle Uncoded 09/29/19 16:57 Aches Home Meds: Home Meds Insulin Glarg,Human.Rec.Analog [Lantus Solostar] 35 units SUBCUT BEDTIME [History] Insulin Aspart [NovoLOG] 0 unit SUBCUT ASDIRECTED PRN 05/23/18 [History] Ondansetron [Zofran ODT] 4 mg PO Q6H PRN 5 Days #20 tab.dis 09/24/19 [Rx] Past Medical History - Past Health History Medical/Surgical History: Denies Medical/Surgical History HEENT History: Reports: Impaired Vision Other HEENT History: blind right eye Cardiovascular History: Reports: Hypertension Respiratory History: Reports: None Gastrointestinal History: Reports: Gastritis, GERD, Hiatal Hernia, Other (See Below) Other Gastrointestinal History: h/o gastric ulcers, h/o hiatal hernia; gastroparesis Genitourinary History: Reports: Chronic Renal Insuffiency, Diabetic Nephropathy Musculoskeletal History: Reports: Amputation Neurological History: Reports: Neuropathy, Peripheral Other Neuro History: stroke 3 months ago Psychiatric History: Reports: Anxiety Endocrine/Metabolic History: Reports: Diabetes, Type I Other Endocrine/Metabolic History: brittle diabetic. 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 - Past Surgical History Head Surgeries/Procedures: Reports: None Musculoskeletal Surgical History: Reports: Other (See Below) Other Musculoskeletal Surgeries/Procedures:: right BKA Social & Family History - Family History Family Medical History: Noncontributory Cardiac: Reports: High Cholesterol, Hypertension OBGYN: Reports: Neurological: Reports: None - Tobacco Use Smoking Status *Q: Unknown Ever Smoked - Caffeine Use Caffeine Use: Reports: None Other Caffeine Use: daily Caffeine Use Comment: patient is uncooperated - Recreational Drug Use Recreational Drug Use: No - Living Situation & Occupation Living situation: Reports: Single Occupation: Employed (Currently unemployed.) ED ROS GENERAL - Review of Systems Review Of Systems: See Below ED EXAM, GI/ABD - Physical Exam Exam: See Below Course - Vital Signs Last Recorded V/S: Last Vital Signs Temp 36.3 C 09/29/19 16:58 Pulse 109 H 09/29/19 16:58 Resp 20 09/29/19 16:58 BP 163/106 H 09/29/19 16:58 Pulse Ox 98 09/29/19 16:58 - Orders/Labs/Meds Orders: Active Orders 24 hr Category Date Time Status Admission Status [Patient Status] [ADT] Stat ADT 09/29/19 18:22 Active Chest 1V Frontal [CR] Stat Exams 09/29/19 18:16 Ordered Sodium Chloride 0.9% [Normal Saline] 1,000 ml Med 09/29/19 17:55 Active IV .BOLUS Sodium Chloride 0.9% [Saline Flush] Med 09/29/19 17:04 Active 10 ml FLUSH ASDIRECTED PRN Sodium Chloride 0.9% [Saline Flush] Med 09/29/19 17:04 Active 2.5 ml FLUSH ASDIRECTED PRN Saline Lock Insert [OM.PC] Stat Oth 09/29/19 17:04 Ordered Medication Orders Sodium Chloride (Normal Saline) 1,000 mls @ 999 mls/hr IV .BOLUS ONE Stop: 09/29/19 18:55 Last Admin: 09/29/19 18:01 Dose: 999 mls/hr Sodium Chloride (Saline Flush) 10 ml FLUSH ASDIRECTED PRN PRN Reason: Keep Vein Open Last Admin: 09/29/19 17:14 Dose: 10 ml Sodium Chloride (Saline Flush) 2.5 ml FLUSH ASDIRECTED PRN PRN Reason: Keep Vein Open Last Admin: 09/29/19 17:14 Dose: 2.5 ml Labs: Laboratory Tests 09/29/19 09/29/19 09/29/19 Range/Units 17:19 17:19 17:19 WBC 8.33 (4.0-11.0) K/uL RBC 4.92 (4.50-5.90) M/uL Hgb 10.7 L (13.0-17.0) g/dL Hct 33.6 L (38.0-50.0) % MCV 68.3 L (80.0-98.0) fL MCH 21.7 L (27.0-32.0) pg MCHC 31.8 (31.0-37.0) g/dL RDW Std Deviation 39.2 (28.0-62.0) fl RDW Coeff of Dania 16 H (11.0-15.0) % Plt Count 391 (150-400) K/uL MPV 10.30 (7.40-12.00) fL Neut % (Auto) 74.0 (48.0-80.0) % Lymph % (Auto) 20.2 (16.0-40.0) % [place] % (Auto) 4.1 (0.0-15.0) % Eos % (Auto) 1.3 (0.0-7.0) % Baso % (Auto) 0.4 (0.0-1.5) % Neut # (Auto) 6.2 H (1.4-5.7) K/uL Lymph # (Auto) 1.7 (0.6-2.4) K/uL [place] # (Auto) 0.3 (0.0-0.8) K/uL Eos # (Auto) 0.1 (0.0-0.7) K/uL Baso # (Auto) 0.0 (0.0-0.1) K/uL Nucleated RBC % 0.0 /100WBC Nucleated RBCs # 0 K/uL VBG pH (7.31-7.41) VBG pCO2 (35-45) mmHG VBG pO2 (30-40) mmHG VBG HCO3 (22-30) mEq/L VBG Total CO2 (41-51) mmol/L VBG Base Excess (-3.0-3.0) Sodium 133 L (136-148) mmol/L Potassium 5.0 (3.5-5.1) mmol/L Chloride 97 L (98-107) mmol/L Carbon Dioxide 26.2 (21.0-32.0) mmol/L BUN 33 H (7.0-18.0) mg/dL Creatinine 2.8 H (0.8-1.3) mg/dL Est Cr Clr Drug Dosing 37.52 mL/min Estimated GFR (MDRD) 26.2 ml/min Glucose 566 H* (74-106) mg/dL Calcium 8.8 (8.5-10.1) mg/dL Total Bilirubin 0.2 (0.2-1.0) mg/dL AST 28 (15-37) IU/L ALT 39 (14-63) IU/L Alkaline Phosphatase 124 H (46-116) U/L Total Protein 6.9 (6.4-8.2) g/dL Albumin 2.6 L (3.4-5.0) g/dL Globulin 4.3 H (2.6-4.0) g/dL Albumin/Globulin Ratio 0.6 L (0.9-1.6) Lipase 41 L (73-393) U/L Ketones NEGATIVE (NEG) 09/29/19 Range/Units 18:04 WBC (4.0-11.0) K/uL RBC (4.50-5.90) M/uL Hgb (13.0-17.0) g/dL Hct (38.0-50.0) % MCV (80.0-98.0) fL MCH (27.0-32.0) pg MCHC (31.0-37.0) g/dL RDW Std Deviation (28.0-62.0) fl RDW Coeff of Dania (11.0-15.0) % Plt Count (150-400) K/uL MPV (7.40-12.00) fL Neut % (Auto) (48.0-80.0) % Lymph % (Auto) (16.0-40.0) % [place] % (Auto) (0.0-15.0) % Eos % (Auto) (0.0-7.0) % Baso % (Auto) (0.0-1.5) % Neut # (Auto) (1.4-5.7) K/uL Lymph # (Auto) (0.6-2.4) K/uL [place] # (Auto) (0.0-0.8) K/uL Eos # (Auto) (0.0-0.7) K/uL Baso # (Auto) (0.0-0.1) K/uL Nucleated RBC % /100WBC Nucleated RBCs # K/uL VBG pH 7.42 H (7.31-7.41) VBG pCO2 35 (35-45) mmHG VBG pO2 41 H (30-40) mmHG VBG HCO3 22 (22-30) mEq/L VBG Total CO2 21 L (41-51) mmol/L VBG Base Excess -1.7 (-3.0-3.0) Sodium (136-148) mmol/L Potassium (3.5-5.1) mmol/L Chloride (98-107) mmol/L Carbon Dioxide (21.0-32.0) mmol/L BUN (7.0-18.0) mg/dL Creatinine (0.8-1.3) mg/dL Est Cr Clr Drug Dosing mL/min Estimated GFR (MDRD) ml/min Glucose (74-106) mg/dL Calcium (8.5-10.1) mg/dL Total Bilirubin (0.2-1.0) mg/dL AST (15-37) IU/L ALT (14-63) IU/L Alkaline Phosphatase (46-116) U/L Total Protein (6.4-8.2) g/dL Albumin (3.4-5.0) g/dL Globulin (2.6-4.0) g/dL Albumin/Globulin Ratio (0.9-1.6) Lipase (73-393) U/L Ketones (NEG) Meds: Medications Generic Name Dose Route Start Last Admin Trade Name Freq PRN Reason Stop Dose Admin Sodium Chloride 1,000 mls @ 999 mls/hr 09/29/19 17:55 09/29/19 18:01 Normal Saline IV 09/29/19 18:55 999 mls/hr .BOLUS ONE Administration Sodium Chloride 10 ml 09/29/19 17:04 09/29/19 17:14 Saline Flush FLUSH 10 ml ASDIRECTED PRN Administration Keep Vein Open Sodium Chloride 2.5 ml 09/29/19 17:04 09/29/19 17:14 Saline Flush FLUSH 2.5 ml ASDIRECTED PRN Administration Keep Vein Open Discontinued Medications Generic Name Dose Route Start Last Admin Trade Name Freq PRN Reason Stop Dose Admin Al Hydroxide/Mg Hydroxide 30 ml 09/29/19 18:15 09/29/19 18:21 Mag-Al Plus PO 09/29/19 18:16 30 ml ONETIME ONE Administration Famotidine 20 mg 09/29/19 17:04 09/29/19 17:18 Pepcid IVPUSH 09/29/19 17:05 20 mg ONETIME ONE Administration Haloperidol Lactate 5 mg 09/29/19 17:24 09/29/19 17:29 Haldol IM 09/29/19 17:25 5 mg ONETIME ONE Administration Sodium Chloride 1,000 mls @ 999 mls/hr 09/29/19 17:04 09/29/19 17:13 Normal Saline IV 09/29/19 18:04 999 mls/hr .Bolus ONE Administration Ondansetron HCl 4 mg 09/29/19 17:03 09/29/19 17:14 Zofran IVPUSH 09/29/19 17:04 4 mg ONETIME ONE Administration Departure - Departure Time of Disposition: 18:30 Disposition: Refer to Observation Clinical Impression: Vomiting - Discharge Information Referrals: Fitz Infante MD [Primary Care Provider] - Forms: ED Department Discharge Sepsis Event Note - Evaluation Sepsis Screening Result: No Definite Risk - Focused Exam Vital Signs: Vital Signs Temp Pulse Resp BP Pulse Ox 09/29/19 16:58 36.3 C 109 H 20 163/106 H 98 Date Exam was Performed: 09/29/19 Time Exam was Performed: 18:29 - My Orders Last 24 Hours: My Active Orders 09/29/19 17:04 Sodium Chloride 0.9% [Saline Flush] 10 ml FLUSH ASDIRECTED PRN Sodium Chloride 0.9% [Saline Flush] 2.5 ml FLUSH ASDIRECTED PRN Saline Lock Insert [OM.PC] Stat 09/29/19 17:55 Sodium Chloride 0.9% [Normal Saline] 1,000 ml IV .BOLUS 09/29/19 18:16 Chest 1V Frontal [CR] Stat 09/29/19 18:22 Admission Status [Patient Status] [ADT] Stat - Assessment/Plan Last 24 Hours: My Active Orders 09/29/19 17:04 Sodium Chloride 0.9% [Saline Flush] 10 ml FLUSH ASDIRECTED PRN Sodium Chloride 0.9% [Saline Flush] 2.5 ml FLUSH ASDIRECTED PRN Saline Lock Insert [OM.PC] Stat 09/29/19 17:55 Sodium Chloride 0.9% [Normal Saline] 1,000 ml IV .BOLUS 09/29/19 18:16 Chest 1V Frontal [CR] Stat 09/29/19 18:22 Admission Status [Patient Status] [ADT] Stat
[2019-09-29 17:50] LABS: CARBON DIOXIDE,CO2 26.2 mmol/L (21.0-32.0)
[2019-09-29] MEDS ORDERED: Aluminum Hydroxide/Magnesium Hydroxide/Simethicone Susp 30 ML Cup PO ONE (18:15)
--- NOTE | 2019-09-29 18:58 | PCM.HP.2 ---
H&P History of Present Illness - General Date of Service: 09/29/19 Admit Problem/Dx: Admission Diagnosis/Problem Admission Diagnosis/Problem Intractable cyclical vomiting - History of Present Illness Initial Comments - Free Text/Narative: The patient is a 34 year old male with past medical history of cyclic vomiting and abdominal pain, uncontrolled diabetes, gastroparesis, chronic marijuana use who presented to the ER with hematemesis and mid epigastric pain. Started this morning, thinks he has had 8 episodes of hematemesis and burning abdominal pain. Has been taking protonix and zofran at home. Hasn't been able to keep any food or drink down. Hasn't taken any insulin today. Has associated loose stools but no black/bloody stools. Denies fever/chills, chest pain, or shortness of breath. Patient has been admitted for this similar complaints every month for the last 6 months and has had many ER visits in between those admissions. Did have a EGD in March which showed chronic gastris and erosive esophagitis. Was supposed to follow up with GI but did not. Denied recent drug use. In the ER, lab work showed chronic anemia 10.7 (his baseline 9-10), no white count, elevated BUN/CR 38/2.8 (baseline 2.0-2.2), bicarb wnl, negative ketones, and negative lipase. Glucose was 566, hasn't taken insulin today. Reports sugars have been 120-150s. Reports he took his blood pressure meds today but his BP was elevated at 163/106. Abdominal Pain Pain Score (Numeric/FACES): 8 - Related Data Allergies/Adverse Reactions: Allergies Allergy/AdvReac Type Severity Reaction Status Date / Time shrimp Allergy Severe Swelling Verified 09/29/19 16:57 iodine Allergy Unknown Anaphylactic Verified 09/29/19 16:57 Shock Penicillins Allergy Unknown Anaphylactic Verified 09/29/19 16:57 Shock shellfish derived Allergy Anaphylactic Verified 09/29/19 16:57 Shock gluten Allergy Unknown Muscle Uncoded 09/29/19 16:57 Aches Home Medications: Home Meds Insulin Glarg,Human.Rec.Analog [Lantus Solostar] 35 units SUBCUT BEDTIME [History] Insulin Aspart [NovoLOG] 0 unit SUBCUT ASDIRECTED PRN 05/23/18 [History] Ondansetron [Zofran ODT] 4 mg PO Q6H PRN 5 Days #20 tab.dis 09/24/19 [Rx] Past Medical History - Past Health History Medical/Surgical History: Denies Medical/Surgical History HEENT History: Reports: Impaired Vision Other HEENT History: blind right eye Cardiovascular History: Reports: Hypertension Respiratory History: Reports: None Gastrointestinal History: Reports: Gastritis, GERD, Hiatal Hernia, Other (See Below) Other Gastrointestinal History: h/o gastric ulcers, h/o hiatal hernia; gastroparesis Genitourinary History: Reports: Chronic Renal Insuffiency, Diabetic Nephropathy Musculoskeletal History: Reports: Amputation Neurological History: Reports: Neuropathy, Peripheral Other Neuro History: stroke 3 months ago Psychiatric History: Reports: Anxiety Endocrine/Metabolic History: Reports: Diabetes, Type I Other Endocrine/Metabolic History: brittle diabetic. 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 - Past Surgical History Head Surgeries/Procedures: Reports: None Musculoskeletal Surgical History: Reports: Other (See Below) Other Musculoskeletal Surgeries/Procedures:: right BKA Social & Family History - Family History Family Medical History: Noncontributory Cardiac: Reports: High Cholesterol, Hypertension OBGYN: Reports: Neurological: Reports: None - Tobacco Use Smoking Status *Q: Unknown Ever Smoked - Caffeine Use Caffeine Use: Reports: None Other Caffeine Use: daily Caffeine Use Comment: patient is uncooperated - Recreational Drug Use Recreational Drug Use: No - Living Situation & Occupation Living situation: Reports: Single Occupation: Employed (Currently unemployed.) H&P Review of Systems - Review of Systems: Review Of Systems: See Below General: Reports: No Symptoms HEENT: Reports: No Symptoms Pulmonary: Reports: No Symptoms Cardiovascular: Reports: No Symptoms Gastrointestinal: Reports: Abdominal Pain, Diarrhea, Hematemesis, Nausea, Vomiting. Denies: Black Stool, Bloody Stool Genitourinary: Denies: No Symptoms Musculoskeletal: Denies: No Symptoms Skin: Denies: No Symptoms Psychiatric: Denies: No Symptoms Neurological: Denies: No Symptoms Hematologic/Lymphatic: Reports: Anemia Immunologic: Denies: No Symptoms Exam - Exam Exam: See Below - Vital Signs Vital Signs: Last Vital Signs Temp 98.7 F 09/29/19 18:29 Pulse 108 H 09/29/19 18:29 Resp 18 09/29/19 18:29 BP 148/84 H 09/29/19 18:29 Pulse Ox 98 09/29/19 18:29 Weight: 74.389 kg - Exam General: Alert, Oriented HEENT: Conjunctiva Clear, Mucosa Moist & [place], Posterior Pharynx Clear, Pupils Equal, Pupils Reactive Neck: Supple Lungs: Clear to Auscultation, Normal Respiratory Effort Cardiovascular: Regular Rate, Regular Rhythm GI/Abdominal Exam: Normal Bowel Sounds, Soft, Tender. No: Guarding, Rigid, Rebound Extremities: No Pedal Edema, Other (BKA) Skin: Warm, Dry Neuro Extensive - Mental Status: Alert, Oriented x3 Psychiatric: Alert, Normal Affect, Normal Mood - Patient Data Lab Results Last 24 hrs: Laboratory Results - last 24 hr 09/29/19 09/29/19 09/29/19 Range/Units 17:19 17:19 17:19 WBC 8.33 (4.0-11.0) K/uL RBC 4.92 (4.50-5.90) M/uL Hgb 10.7 L (13.0-17.0) g/dL Hct 33.6 L (38.0-50.0) % MCV 68.3 L (80.0-98.0) fL MCH 21.7 L (27.0-32.0) pg MCHC 31.8 (31.0-37.0) g/dL RDW Std Deviation 39.2 (28.0-62.0) fl RDW Coeff of Dania 16 H (11.0-15.0) % Plt Count 391 (150-400) K/uL MPV 10.30 (7.40-12.00) fL Neut % (Auto) 74.0 (48.0-80.0) % Lymph % (Auto) 20.2 (16.0-40.0) % [place] % (Auto) 4.1 (0.0-15.0) % Eos % (Auto) 1.3 (0.0-7.0) % Baso % (Auto) 0.4 (0.0-1.5) % Neut # (Auto) 6.2 H (1.4-5.7) K/uL Lymph # (Auto) 1.7 (0.6-2.4) K/uL [place] # (Auto) 0.3 (0.0-0.8) K/uL Eos # (Auto) 0.1 (0.0-0.7) K/uL Baso # (Auto) 0.0 (0.0-0.1) K/uL Nucleated RBC % 0.0 /100WBC Nucleated RBCs # 0 K/uL VBG pH (7.31-7.41) VBG pCO2 (35-45) mmHG VBG pO2 (30-40) mmHG VBG HCO3 (22-30) mEq/L VBG Total CO2 (41-51) mmol/L VBG Base Excess (-3.0-3.0) Sodium 133 L (136-148) mmol/L Potassium 5.0 (3.5-5.1) mmol/L Chloride 97 L (98-107) mmol/L Carbon Dioxide 26.2 (21.0-32.0) mmol/L BUN 33 H (7.0-18.0) mg/dL Creatinine 2.8 H (0.8-1.3) mg/dL Est Cr Clr Drug Dosing 37.52 mL/min Estimated GFR (MDRD) 26.2 ml/min Glucose 566 H* (74-106) mg/dL Calcium 8.8 (8.5-10.1) mg/dL Total Bilirubin 0.2 (0.2-1.0) mg/dL AST 28 (15-37) IU/L ALT 39 (14-63) IU/L Alkaline Phosphatase 124 H (46-116) U/L Total Protein 6.9 (6.4-8.2) g/dL Albumin 2.6 L (3.4-5.0) g/dL Globulin 4.3 H (2.6-4.0) g/dL Albumin/Globulin Ratio 0.6 L (0.9-1.6) Lipase 41 L (73-393) U/L Ketones NEGATIVE (NEG) 09/29/19 Range/Units 18:04 WBC (4.0-11.0) K/uL RBC (4.50-5.90) M/uL Hgb (13.0-17.0) g/dL Hct (38.0-50.0) % MCV (80.0-98.0) fL MCH (27.0-32.0) pg MCHC (31.0-37.0) g/dL RDW Std Deviation (28.0-62.0) fl RDW Coeff of Dania (11.0-15.0) % Plt Count (150-400) K/uL MPV (7.40-12.00) fL Neut % (Auto) (48.0-80.0) % Lymph % (Auto) (16.0-40.0) % [place] % (Auto) (0.0-15.0) % Eos % (Auto) (0.0-7.0) % Baso % (Auto) (0.0-1.5) % Neut # (Auto) (1.4-5.7) K/uL Lymph # (Auto) (0.6-2.4) K/uL [place] # (Auto) (0.0-0.8) K/uL Eos # (Auto) (0.0-0.7) K/uL Baso # (Auto) (0.0-0.1) K/uL Nucleated RBC % /100WBC Nucleated RBCs # K/uL VBG pH 7.42 H (7.31-7.41) VBG pCO2 35 (35-45) mmHG VBG pO2 41 H (30-40) mmHG VBG HCO3 22 (22-30) mEq/L VBG Total CO2 21 L (41-51) mmol/L VBG Base Excess -1.7 (-3.0-3.0) Sodium (136-148) mmol/L Potassium (3.5-5.1) mmol/L Chloride (98-107) mmol/L Carbon Dioxide (21.0-32.0) mmol/L BUN (7.0-18.0) mg/dL Creatinine (0.8-1.3) mg/dL Est Cr Clr Drug Dosing mL/min Estimated GFR (MDRD) ml/min Glucose (74-106) mg/dL Calcium (8.5-10.1) mg/dL Total Bilirubin (0.2-1.0) mg/dL AST (15-37) IU/L ALT (14-63) IU/L Alkaline Phosphatase (46-116) U/L Total Protein (6.4-8.2) g/dL Albumin (3.4-5.0) g/dL Globulin (2.6-4.0) g/dL Albumin/Globulin Ratio (0.9-1.6) Lipase (73-393) U/L Ketones (NEG) Result Diagrams: 09/29/19 17:19 09/29/19 17:19 Sepsis Event Note - Evaluation Sepsis Screening Result: No Definite Risk - Focused Exam Vital Signs: Vital Signs Temp Pulse Resp BP Pulse Ox 09/29/19 18:29 98.7 F 108 H 18 148/84 H 98 09/29/19 16:58 97.3 F 109 H 20 163/106 H 98 Date Exam was Performed: 09/29/19 Time Exam was Performed: 19:02 Problem List Initiated/Reviewed/Updated: Yes Orders Last 24hrs: Active Orders 24 hr Category Date Time Status Admission Status [Patient Status] [ADT] Stat ADT 09/29/19 18:22 Active Chest 1V Frontal [CR] Stat Exams 09/29/19 18:16 Taken Sodium Chloride 0.9% [Normal Saline] 1,000 ml Med 09/29/19 17:55 Active IV .BOLUS Sodium Chloride 0.9% [Saline Flush] Med 09/29/19 17:04 Active 10 ml FLUSH ASDIRECTED PRN Sodium Chloride 0.9% [Saline Flush] Med 09/29/19 17:04 Active 2.5 ml FLUSH ASDIRECTED PRN Saline Lock Insert [OM.PC] Stat Oth 09/29/19 17:04 Ordered Medication Orders Sodium Chloride (Normal Saline) 1,000 mls @ 999 mls/hr IV .BOLUS ONE Stop: 09/29/19 18:55 Last Admin: 09/29/19 18:01 Dose: 999 mls/hr Sodium Chloride (Saline Flush) 10 ml FLUSH ASDIRECTED PRN PRN Reason: Keep Vein Open Last Admin: 09/29/19 17:14 Dose: 10 ml Sodium Chloride (Saline Flush) 2.5 ml FLUSH ASDIRECTED PRN PRN Reason: Keep Vein Open Last Admin: 09/29/19 17:14 Dose: 2.5 ml Assessment/Plan Comment:: 1. Admit for observation 2. Code status- Full 3. Vitals per routine 4. I/Os per routine 5. Diet- NPO 6. DVT prophylaxis with SCDs 7. Hematemesis and burning epigastric pain- Will keep NPO, reglan/zofran prn nausea/vomiting, morphine prn pain, and protonix IV. Will keep an eye on hemoglobin level. Continue IVF 8. Hyperglycemia without DKA- restart home insulin- Lantus 35 PM, sliding scale , and accuchecks 9. Acute on chronic kidney disease- IVF, recheck levels in AM 10. Chronic anemia- at baseline, but will monitor H/H 11. HTN- continue home meds.
--- NOTE | 2019-09-29 18:59 | CR ---
Chest: Portable view of the chest was obtained. Comparison: Prior chest x-ray of 08/15/19. Heart size and mediastinum are normal. Lungs are clear. Bony structures appear unremarkable. Impression: 1. Nothing acute is appreciated on portable chest x-ray. Diagnostic code #1 This report was dictated in [place] Standard Time
[2019-09-29] MEDS ORDERED: Ondansetron 4 MG/2 ML SDV IVPUSH PRN (19:12)
[2019-09-29] MEDS ORDERED: Morphine 2 MG/ML Syringe IVPUSH PRN (19:12)
[2019-09-29] MEDS ORDERED: Metoclopramide 5 MG Tab PO PRN (19:12)
[2019-09-29] MEDS ORDERED: LORazepam 2 MG/ML SDV IVPUSH ONE (19:23)
[2019-09-29] MEDS: Insulin Aspart 100 Units/ML 3 ML Pen SUBCUT SCH (19:51)
[2019-09-29] MEDS: Spironolactone 25 MG Tab PO SCH (20:49)
[2019-09-29] MEDS: Pantoprazole 40 MG Vial IVPUSH SCH (20:55)
[2019-09-29] MEDS ORDERED: Insulin Glargine,Human Rec. Analog 100 Units/ML 3 ML Pen SUBCUT SCH (21:00)
[2019-09-29] MEDS ORDERED: amLODIPine 5 MG Tab PO SCH (21:00)
[2019-09-29] MEDS: Sodium Chloride 0.9% 1,000 ML IV SCH (21:06)
[2019-09-30] MEDS ORDERED: 50% Dextrose in Water 50 ML Syringe IVPUSH ONE ×3 (00:04→09:38)
[2019-09-30] MEDS: Insulin Aspart 100 Units/ML 3 ML Pen SUBCUT SCH ×3 (00:15→12:06)
[2019-09-30] MEDS ORDERED: 50% Dextrose in Water 50 ML Syringe ONE (04:44)
[2019-09-30] MEDS: Sodium Chloride 0.9% 1,000 ML IV SCH (05:58)
[2019-09-30 06:25] LABS: CARBON DIOXIDE,CO2 25.5 mmol/L (21.0-32.0); POTASSIUM,K 4.1 mmol/L (3.5-5.1)
[2019-09-30] MEDS ORDERED: LORazepam 2 MG/ML SDV IVPUSH ONE (07:56)
[2019-09-30] MEDS ORDERED: LORazepam 2 MG/ML SDV IM ONE (08:13)
[2019-09-30] MEDS: Spironolactone 25 MG Tab PO SCH (08:27)
[2019-09-30] MEDS: Pantoprazole 40 MG Vial IVPUSH SCH (08:29)
[2019-09-30] MEDS ORDERED: Dextrose 5%-0.45% NaCl 1,000 ML IV SCH (09:45)
--- NOTE | 2019-09-30 11:25 | PCM.PN ---
- General Info Date of Service: 09/30/19 Subjective Update: The patient was admitted for hematemesis and hyperglycemia. No further episodes of vomiting and abdominal pain resolved. His blood sugar did drop low overnight requiring D50. This morning around 945 he was examined in bed, hard to arouse, BS checked and in the 30s, D50 given, improved to 130s, and started on D51/2NS States he feels very anxious in the hospital and needs Ativan. He has been getting out of bed, won't use bed alarm, taking out IV. Reports watery diarrhea, 5 episodes since admission, no blood, recent antibiotic use. Reports he takes all his medications at home but has filled long acting insulin in months and the only blood pressure medication he filled recently was metoprolol despite stating he takes several different medications. - Review of Systems General: Reports: No Symptoms HEENT: Reports: No Symptoms Pulmonary: Reports: No Symptoms Cardiovascular: Reports: No Symptoms Gastrointestinal: Reports: Diarrhea. Denies: Abdominal Pain, Nausea, Vomiting Genitourinary: Reports: No Symptoms Musculoskeletal: Reports: No Symptoms Skin: Reports: No Symptoms Neurological: Reports: No Symptoms Psychiatric: Reports: No Symptoms - Patient Data Vitals - Most Recent: Last Vital Signs Temp 97.3 F 09/30/19 08:00 Pulse 92 09/30/19 08:00 Resp 18 09/30/19 08:00 BP 167/93 H 09/30/19 08:00 Pulse Ox 100 09/30/19 08:00 Weight - Most Recent: 74.389 kg I&O - Last 24 Hours: Intake & Output 09/29/19 09/30/19 09/30/19 22:59 06:59 14:59 Intake Total 3116 Balance 3116 Lab Results Last 24 Hours: Laboratory Results - last 24 hr 09/29/19 09/29/19 09/29/19 Range/Units 17:19 17:19 17:19 WBC 8.33 (4.0-11.0) K/uL RBC 4.92 (4.50-5.90) M/uL Hgb 10.7 L (13.0-17.0) g/dL Hct 33.6 L (38.0-50.0) % MCV 68.3 L (80.0-98.0) fL MCH 21.7 L (27.0-32.0) pg MCHC 31.8 (31.0-37.0) g/dL RDW Std Deviation 39.2 (28.0-62.0) fl RDW Coeff of Dania 16 H (11.0-15.0) % Plt Count 391 (150-400) K/uL MPV 10.30 (7.40-12.00) fL Neut % (Auto) 74.0 (48.0-80.0) % Lymph % (Auto) 20.2 (16.0-40.0) % Bailey % (Auto) 4.1 (0.0-15.0) % Eos % (Auto) 1.3 (0.0-7.0) % Baso % (Auto) 0.4 (0.0-1.5) % Neut # (Auto) 6.2 H (1.4-5.7) K/uL Lymph # (Auto) 1.7 (0.6-2.4) K/uL Bailey # (Auto) 0.3 (0.0-0.8) K/uL Eos # (Auto) 0.1 (0.0-0.7) K/uL Baso # (Auto) 0.0 (0.0-0.1) K/uL Nucleated RBC % 0.0 /100WBC Nucleated RBCs # 0 K/uL VBG pH (7.31-7.41) VBG pCO2 (35-45) mmHG VBG pO2 (30-40) mmHG VBG HCO3 (22-30) mEq/L VBG Total CO2 (41-51) mmol/L VBG Base Excess (-3.0-3.0) Sodium 133 L (136-148) mmol/L Potassium 5.0 (3.5-5.1) mmol/L Chloride 97 L (98-107) mmol/L Carbon Dioxide 26.2 (21.0-32.0) mmol/L BUN 33 H (7.0-18.0) mg/dL Creatinine 2.8 H (0.8-1.3) mg/dL Est Cr Clr Drug Dosing 37.52 mL/min Estimated GFR (MDRD) 26.2 ml/min Glucose 566 H* (74-106) mg/dL POC Glucose (60-110) mg/dL Calcium 8.8 (8.5-10.1) mg/dL Total Bilirubin 0.2 (0.2-1.0) mg/dL AST 28 (15-37) IU/L ALT 39 (14-63) IU/L Alkaline Phosphatase 124 H (46-116) U/L Total Protein 6.9 (6.4-8.2) g/dL Albumin 2.6 L (3.4-5.0) g/dL Globulin 4.3 H (2.6-4.0) g/dL Albumin/Globulin Ratio 0.6 L (0.9-1.6) Lipase 41 L (73-393) U/L Ketones NEGATIVE (NEG) 09/29/19 09/29/19 09/29/19 Range/Units 18:04 19:44 23:59 WBC (4.0-11.0) K/uL RBC (4.50-5.90) M/uL Hgb (13.0-17.0) g/dL Hct (38.0-50.0) % MCV (80.0-98.0) fL MCH (27.0-32.0) pg MCHC (31.0-37.0) g/dL RDW Std Deviation (28.0-62.0) fl RDW Coeff of Dania (11.0-15.0) % Plt Count (150-400) K/uL MPV (7.40-12.00) fL Neut % (Auto) (48.0-80.0) % Lymph % (Auto) (16.0-40.0) % Bailey % (Auto) (0.0-15.0) % Eos % (Auto) (0.0-7.0) % Baso % (Auto) (0.0-1.5) % Neut # (Auto) (1.4-5.7) K/uL Lymph # (Auto) (0.6-2.4) K/uL Bailey # (Auto) (0.0-0.8) K/uL Eos # (Auto) (0.0-0.7) K/uL Baso # (Auto) (0.0-0.1) K/uL Nucleated RBC % /100WBC Nucleated RBCs # K/uL VBG pH 7.42 H (7.31-7.41) VBG pCO2 35 (35-45) mmHG VBG pO2 41 H (30-40) mmHG VBG HCO3 22 (22-30) mEq/L VBG Total CO2 21 L (41-51) mmol/L VBG Base Excess -1.7 (-3.0-3.0) Sodium (136-148) mmol/L Potassium (3.5-5.1) mmol/L Chloride (98-107) mmol/L Carbon Dioxide (21.0-32.0) mmol/L BUN (7.0-18.0) mg/dL Creatinine (0.8-1.3) mg/dL Est Cr Clr Drug Dosing mL/min Estimated GFR (MDRD) ml/min Glucose (74-106) mg/dL POC Glucose 395 H 29 L (60-110) mg/dL Calcium (8.5-10.1) mg/dL Total Bilirubin (0.2-1.0) mg/dL AST (15-37) IU/L ALT (14-63) IU/L Alkaline Phosphatase (46-116) U/L Total Protein (6.4-8.2) g/dL Albumin (3.4-5.0) g/dL Globulin (2.6-4.0) g/dL Albumin/Globulin Ratio (0.9-1.6) Lipase (73-393) U/L Ketones (NEG) 09/30/19 09/30/19 09/30/19 Range/Units 00:09 00:30 02:09 WBC (4.0-11.0) K/uL RBC (4.50-5.90) M/uL Hgb (13.0-17.0) g/dL Hct (38.0-50.0) % MCV (80.0-98.0) fL MCH (27.0-32.0) pg MCHC (31.0-37.0) g/dL RDW Std Deviation (28.0-62.0) fl RDW Coeff of Dania (11.0-15.0) % Plt Count (150-400) K/uL MPV (7.40-12.00) fL Neut % (Auto) (48.0-80.0) % Lymph % (Auto) (16.0-40.0) % Bailey % (Auto) (0.0-15.0) % Eos % (Auto) (0.0-7.0) % Baso % (Auto) (0.0-1.5) % Neut # (Auto) (1.4-5.7) K/uL Lymph # (Auto) (0.6-2.4) K/uL Bailey # (Auto) (0.0-0.8) K/uL Eos # (Auto) (0.0-0.7) K/uL Baso # (Auto) (0.0-0.1) K/uL Nucleated RBC % /100WBC Nucleated RBCs # K/uL VBG pH (7.31-7.41) VBG pCO2 (35-45) mmHG VBG pO2 (30-40) mmHG VBG HCO3 (22-30) mEq/L VBG Total CO2 (41-51) mmol/L VBG Base Excess (-3.0-3.0) Sodium (136-148) mmol/L Potassium (3.5-5.1) mmol/L Chloride (98-107) mmol/L Carbon Dioxide (21.0-32.0) mmol/L BUN (7.0-18.0) mg/dL Creatinine (0.8-1.3) mg/dL Est Cr Clr Drug Dosing mL/min Estimated GFR (MDRD) ml/min Glucose (74-106) mg/dL POC Glucose 50 L 119 H 95 (60-110) mg/dL Calcium (8.5-10.1) mg/dL Total Bilirubin (0.2-1.0) mg/dL AST (15-37) IU/L ALT (14-63) IU/L Alkaline Phosphatase (46-116) U/L Total Protein (6.4-8.2) g/dL Albumin (3.4-5.0) g/dL Globulin (2.6-4.0) g/dL Albumin/Globulin Ratio (0.9-1.6) Lipase (73-393) U/L Ketones (NEG) 09/30/19 09/30/19 09/30/19 Range/Units 04:39 04:59 06:00 WBC 10.33 (4.0-11.0) K/uL RBC 4.23 L (4.50-5.90) M/uL Hgb 9.1 L (13.0-17.0) g/dL Hct 28.6 L (38.0-50.0) % MCV 67.6 L (80.0-98.0) fL MCH 21.5 L (27.0-32.0) pg MCHC 31.8 (31.0-37.0) g/dL RDW Std Deviation 39.3 (28.0-62.0) fl RDW Coeff of Dania 16 H (11.0-15.0) % Plt Count 371 (150-400) K/uL MPV 10.10 (7.40-12.00) fL Neut % (Auto) 65.0 (48.0-80.0) % Lymph % (Auto) 26.3 (16.0-40.0) % Bailey % (Auto) 7.2 (0.0-15.0) % Eos % (Auto) 1.0 (0.0-7.0) % Baso % (Auto) 0.5 (0.0-1.5) % Neut # (Auto) 6.7 H (1.4-5.7) K/uL Lymph # (Auto) 2.7 H (0.6-2.4) K/uL Bailey # (Auto) 0.7 (0.0-0.8) K/uL Eos # (Auto) 0.1 (0.0-0.7) K/uL Baso # (Auto) 0.1 (0.0-0.1) K/uL Nucleated RBC % 0.0 /100WBC Nucleated RBCs # 0 K/uL VBG pH (7.31-7.41) VBG pCO2 (35-45) mmHG VBG pO2 (30-40) mmHG VBG HCO3 (22-30) mEq/L VBG Total CO2 (41-51) mmol/L VBG Base Excess (-3.0-3.0) Sodium (136-148) mmol/L Potassium (3.5-5.1) mmol/L Chloride (98-107) mmol/L Carbon Dioxide (21.0-32.0) mmol/L BUN (7.0-18.0) mg/dL Creatinine (0.8-1.3) mg/dL Est Cr Clr Drug Dosing mL/min Estimated GFR (MDRD) ml/min Glucose (74-106) mg/dL POC Glucose 25 L 115 H (60-110) mg/dL Calcium (8.5-10.1) mg/dL Total Bilirubin (0.2-1.0) mg/dL AST (15-37) IU/L ALT (14-63) IU/L Alkaline Phosphatase (46-116) U/L Total Protein (6.4-8.2) g/dL Albumin (3.4-5.0) g/dL Globulin (2.6-4.0) g/dL Albumin/Globulin Ratio (0.9-1.6) Lipase (73-393) U/L Ketones (NEG) 09/30/19 09/30/19 09/30/19 Range/Units 06:00 07:53 09:38 WBC (4.0-11.0) K/uL RBC (4.50-5.90) M/uL Hgb (13.0-17.0) g/dL Hct (38.0-50.0) % MCV (80.0-98.0) fL MCH (27.0-32.0) pg MCHC (31.0-37.0) g/dL RDW Std Deviation (28.0-62.0) fl RDW Coeff of Dania (11.0-15.0) % Plt Count (150-400) K/uL MPV (7.40-12.00) fL Neut % (Auto) (48.0-80.0) % Lymph % (Auto) (16.0-40.0) % Bailey % (Auto) (0.0-15.0) % Eos % (Auto) (0.0-7.0) % Baso % (Auto) (0.0-1.5) % Neut # (Auto) (1.4-5.7) K/uL Lymph # (Auto) (0.6-2.4) K/uL Bailey # (Auto) (0.0-0.8) K/uL Eos # (Auto) (0.0-0.7) K/uL Baso # (Auto) (0.0-0.1) K/uL Nucleated RBC % /100WBC Nucleated RBCs # K/uL VBG pH (7.31-7.41) VBG pCO2 (35-45) mmHG VBG pO2 (30-40) mmHG VBG HCO3 (22-30) mEq/L VBG Total CO2 (41-51) mmol/L VBG Base Excess (-3.0-3.0) Sodium 142 (136-148) mmol/L Potassium 4.1 (3.5-5.1) mmol/L Chloride 105 (98-107) mmol/L Carbon Dioxide 25.5 (21.0-32.0) mmol/L BUN 30 H (7.0-18.0) mg/dL Creatinine 2.3 H (0.8-1.3) mg/dL Est Cr Clr Drug Dosing 45.68 mL/min Estimated GFR (MDRD) 32.9 ml/min Glucose 120 H (74-106) mg/dL POC Glucose 74 34 L (60-110) mg/dL Calcium 8.3 L (8.5-10.1) mg/dL Total Bilirubin (0.2-1.0) mg/dL AST (15-37) IU/L ALT (14-63) IU/L Alkaline Phosphatase (46-116) U/L Total Protein (6.4-8.2) g/dL Albumin (3.4-5.0) g/dL Globulin (2.6-4.0) g/dL Albumin/Globulin Ratio (0.9-1.6) Lipase (73-393) U/L Ketones (NEG) 09/30/19 Range/Units 10:29 WBC (4.0-11.0) K/uL RBC (4.50-5.90) M/uL Hgb (13.0-17.0) g/dL Hct (38.0-50.0) % MCV (80.0-98.0) fL MCH (27.0-32.0) pg MCHC (31.0-37.0) g/dL RDW Std Deviation (28.0-62.0) fl RDW Coeff of Dania (11.0-15.0) % Plt Count (150-400) K/uL MPV (7.40-12.00) fL Neut % (Auto) (48.0-80.0) % Lymph % (Auto) (16.0-40.0) % Bailey % (Auto) (0.0-15.0) % Eos % (Auto) (0.0-7.0) % Baso % (Auto) (0.0-1.5) % Neut # (Auto) (1.4-5.7) K/uL Lymph # (Auto) (0.6-2.4) K/uL Bailey # (Auto) (0.0-0.8) K/uL Eos # (Auto) (0.0-0.7) K/uL Baso # (Auto) (0.0-0.1) K/uL Nucleated RBC % /100WBC Nucleated RBCs # K/uL VBG pH (7.31-7.41) VBG pCO2 (35-45) mmHG VBG pO2 (30-40) mmHG VBG HCO3 (22-30) mEq/L VBG Total CO2 (41-51) mmol/L VBG Base Excess (-3.0-3.0) Sodium (136-148) mmol/L Potassium (3.5-5.1) mmol/L Chloride (98-107) mmol/L Carbon Dioxide (21.0-32.0) mmol/L BUN (7.0-18.0) mg/dL Creatinine (0.8-1.3) mg/dL Est Cr Clr Drug Dosing mL/min Estimated GFR (MDRD) ml/min Glucose (74-106) mg/dL POC Glucose 132 H (60-110) mg/dL Calcium (8.5-10.1) mg/dL Total Bilirubin (0.2-1.0) mg/dL AST (15-37) IU/L ALT (14-63) IU/L Alkaline Phosphatase (46-116) U/L Total Protein (6.4-8.2) g/dL Albumin (3.4-5.0) g/dL Globulin (2.6-4.0) g/dL Albumin/Globulin Ratio (0.9-1.6) Lipase (73-393) U/L Ketones (NEG) Med Orders - Current: Current Medications Amlodipine Besylate (Norvasc) 10 mg PO BEDTIME [facility] Last Admin: 09/29/19 20:50 Dose: 10 mg Dextrose/Sodium Chloride (Dextrose 5%-1/2 Ns) 1,000 mls @ 125 mls/hr IV ASDIRECTED [facility] Last Admin: 09/30/19 10:53 Dose: 125 mls/hr Insulin Aspart (Novolog) 0 unit SUBCUT Q6HR [facility]; Protocol Last Admin: 09/30/19 05:15 Dose: Not Given Insulin Glargine (Lantus Solostar) 35 units SUBCUT BEDTIME [facility] Last Admin: 09/29/19 21:09 Dose: 35 units Metoclopramide HCl (Reglan) 5 mg PO Q6H PRN PRN Reason: Nausea/Vomiting Ondansetron HCl (Zofran) 4 mg IVPUSH Q4H PRN PRN Reason: Nausea/Vomiting Last Admin: 09/29/19 21:03 Dose: 4 mg Pantoprazole Sodium (Protonix Iv) 40 mg IVPUSH Q12HR [facility] Last Admin: 09/30/19 08:29 Dose: 40 mg Sodium Chloride (Saline Flush) 10 ml FLUSH ASDIRECTED PRN PRN Reason: Keep Vein Open Last Admin: 09/29/19 17:14 Dose: 10 ml Sodium Chloride (Saline Flush) 2.5 ml FLUSH ASDIRECTED PRN PRN Reason: Keep Vein Open Last Admin: 09/29/19 17:14 Dose: 2.5 ml Spironolactone (Aldactone) 25 mg PO BID [facility] Last Admin: 09/30/19 08:27 Dose: 25 mg Discontinued Medications Al Hydroxide/Mg Hydroxide (Mag-Al Plus) 30 ml PO ONETIME ONE Stop: 09/29/19 18:16 Last Admin: 09/29/19 18:21 Dose: 30 ml Dextrose/Water (Dextrose 50% In Water) 25 ml IVPUSH ONETIME ONE Stop: 09/30/19 00:05 Last Admin: 09/30/19 00:17 Dose: 25 ml Dextrose/Water (Dextrose 50% In Water) 25 ml IVPUSH ONETIME ONE Stop: 09/30/19 04:44 Last Admin: 09/30/19 04:53 Dose: 25 ml Dextrose/Water (Dextrose 50% In Water) Confirm Administered Dose 50 ml .ROUTE .STK-MED ONE Stop: 09/30/19 04:45 Last Admin: 09/30/19 04:48 Dose: Not Given Dextrose/Water (Dextrose 50% In Water) 50 ml IVPUSH ONETIME ONE Stop: 09/30/19 09:39 Last Admin: 09/30/19 09:48 Dose: 50 ml Famotidine (Pepcid) 20 mg IVPUSH ONETIME ONE Stop: 09/29/19 17:05 Last Admin: 09/29/19 17:18 Dose: 20 mg Haloperidol Lactate (Haldol) 5 mg IM ONETIME ONE Stop: 09/29/19 17:25 Last Admin: 09/29/19 17:29 Dose: 5 mg Sodium Chloride (Normal Saline) 1,000 mls @ 999 mls/hr IV .Bolus ONE Stop: 09/29/19 18:04 Last Admin: 09/29/19 17:13 Dose: 999 mls/hr Sodium Chloride (Normal Saline) 1,000 mls @ 999 mls/hr IV .BOLUS ONE Stop: 09/29/19 18:55 Last Admin: 09/29/19 18:01 Dose: 999 mls/hr Sodium Chloride (Normal Saline) 1,000 mls @ 125 mls/hr IV ASDIRECTED [facility] Last Admin: 09/30/19 05:58 Dose: 125 mls/hr Lorazepam (Ativan) 1 mg IVPUSH ONETIME ONE Stop: 09/29/19 19:24 Last Admin: 09/29/19 19:47 Dose: 1 mg Lorazepam (Ativan) 1 mg IVPUSH ONETIME ONE Stop: 09/30/19 07:57 Last Admin: 09/30/19 10:41 Dose: Not Given Lorazepam (Ativan) 1 mg IM ONETIME ONE Stop: 09/30/19 08:14 Last Admin: 09/30/19 08:19 Dose: 1 mg Morphine Sulfate (Morphine) 1 mg IVPUSH Q3HR PRN PRN Reason: Pain (severe 7-10) Ondansetron HCl (Zofran) 4 mg IVPUSH ONETIME ONE Stop: 09/29/19 17:04 Last Admin: 09/29/19 17:14 Dose: 4 mg - Exam General: Alert, Oriented Lungs: Clear to Auscultation, Normal Respiratory Effort Cardiovascular: Regular Rate, Regular Rhythm GI/Abdominal Exam: Normal Bowel Sounds, Soft, Non-Tender, No Distention Extremities: No Pedal Edema, Other (right BKA) Skin: Warm, Dry, Intact Neurological: No New Focal Deficit Psy/Mental Status: Alert, Normal Affect, Normal Mood Sepsis Event Note - Evaluation Sepsis Screening Result: No Definite Risk - Focused Exam Vital Signs: Vital Signs Temp Pulse Resp BP Pulse Ox 09/30/19 08:00 97.3 F 92 18 167/93 H 100 09/30/19 04:00 98.3 F 95 16 137/72 95 09/30/19 00:36 164/95 H 09/30/19 00:00 97.7 F 12 183/100 H 99 Date Exam was Performed: 09/30/19 Time Exam was Performed: 11:19 - Problem List Review Problem List Initiated/Reviewed/Updated: Yes - My Orders Last 24 Hours: My Active Orders 09/29/19 19:12 Blood Glucose Check, Bedside [RC] Q6HR Intake and Output [RC] Q12H Vital Signs [RC] PER UNIT ROUTINE Metoclopramide [Reglan] 5 mg PO Q6H PRN Ondansetron [Zofran] 4 mg IVPUSH Q4H PRN Sequential Compression Device [OM.PC] Stat Resuscitation Status Stat 09/29/19 19:13 Antiembolic Devices [RC] PER UNIT ROUTINE 09/29/19 19:15 Insulin Aspart [NovoLOG] See Protocol SUBCUT Q6HR 09/29/19 21:00 Insulin Glarg,Human.Rec.Analog [LantUS Solostar] 35 units SUBCUT BEDTIME Pantoprazole [ProTONIX IV] 40 mg IVPUSH Q12HR Spironolactone [Aldactone] 25 mg PO BID amLODIPine [Norvasc] 10 mg PO BEDTIME 09/30/19 07:57 C DIFFICILE AG/TOXIN W/REFLEX [RM] Routine STOOL CULTURE/SHIGA TOXIN [MREF] Routine 09/30/19 09:45 Dextrose 5%-0.45% NaCl [Dextrose 5%-1/2 NS] 1,000 ml IV ASDIRECTED 09/30/19 Breakfast Clear Liquid Diet [DIET] - Plan Plan:: 1. Hematemesis and burning epigastric pain- resolved, advance diet as tolerated , reglan/zofran prn nausea/vomiting,and protonix IV. No further episodes of bleeding. 2. Episodes of hypoglycemia- has required several rounds of D50. Will advance diet as tolerated, started on D51/2NS, continue to monitor sugars. Will decrease Lantus tonight if he stays another day. 3. Acute on chronic kidney disease- improved on fluids, back to baseline. 4. Chronic anemia- dropped from 10.7-9.1 likely dilutional from IVF, no further episodes of bleeding, continue to monitor 5. HTN- will try to figure out his home meds because what he states he is taking is different from what is being filled which is different from what his last discharge summary showed a month ago. Will restart metoprolol. Had amlodipine and spironolactone last night. Watch BP carefully.
[2019-09-30] MEDS ORDERED: Metoprolol Succinate 100 MG Tab.ER PO SCH (11:45)
[2019-09-30 16:16] VITALS: BP 167/101; PULSE 85
--- NOTE | 2019-09-30 16:39 | PCM.DCSUM1 ---
Discharge Summary - Hospital Course HPI Initial Comments: Admission Date: 09/29/19 Discharge Date: 09/30/19 Admission Diagnosis: 1. Hematemesis and burning epigastric pain 2. Hyperglycemia without DKA 3. Acute on chronic kidney disease 4. Chronic anemia 5. HTN Discharge Diagnosis: 1. Hematemesis and burning epigastric pain- resolved 2. Hyperglycemia without DKA-resolved 3. Acute on chronic kidney disease-resolved 4. Chronic anemia-stable 5. HTN 6. Episodes of hypoglycemia- resolved Procedures: None Consults: None Hospital Course:The patient is a 34 year old male with past medical history of cyclic vomiting and abdominal pain, uncontrolled diabetes, gastroparesis, chronic marijuana use who presented to the ER with hematemesis and mid epigastric pain. Patient has been admitted for this similar complaints every month for the last 6 months and has had many ER visits in between those admissions. Has not followed up with GI yet but has appt next week. In the ER, lab work showed chronic anemia 10.7 (his baseline 9-10), no white count, elevated BUN/CR 38/2.8 (baseline 2.0-2.2), bicarb wnl, negative ketones, and negative lipase. Glucose was 566 as he had not taken his insulin that day. Was admitted to medical floor for observation. Started on IVF, IV Protonix and given zofran for nausea. Once admitted he had no other episodes of hematemesis or vomiting. His diet was advanced as tolerated. He was restarted on his home insulin and accuchecks. He did developed several episodes of hypoglycemia, he was treated with amps of D50 and started on D51/2NS and his sugars improved. He had been complaining of diarrhea overnight but by the next day he was no longer has diarrhea. Stool studies had been ordered but his diarrhea resolved before collection. He was started on some blood pressure medications but there was some confusion about which meds he is supposed to be on. The meds he last filled was different from his last discharge summary and at first he was unable to tell us which meds he was taken. By day of discharge he could remember the meds he is taking. He will be discharge on those. By day of discharge the patient was requesting discharge as he felt better. Disposition: Home Discharge Condition: vitals stable, tolerating oral diet, ambulating without difficulty, symptom improvement Discharge Instructions: regular diet as tolerated, activity as tolerated, take medications as prescribed. Symptoms to report to physician include fever/chills , chest pain, shortness of breath, abdominal pain, erythema, drainage/discharge , or not improving as expected. Check blood sugars at least 4 times daily. Monitor for signs of hypoglycemia. Check BP daily and keep log. Discharge Medications: Insulin Glarg,Human.Rec.Analog [Lantus Solostar] 34 units SUBCUT BEDTIME Insulin Aspart [NovoLOG] 0 unit SUBCUT ASDIRECTED PRN Ondansetron [Zofran ODT] 4 mg PO Q6H PRN Doxazosin [Cardura] 4 mg PO BEDTIME Metoclopramide [Reglan] 5 mg PO TIDAC Metoprolol Succinate 200 mg PO DAILY Pantoprazole [ProTONIX] 40 mg PO DAILY Torsemide 20 mg PO DAILY atorvaSTATin [Lipitor] 80 mg PO BEDTIME hydrALAZINE [Apresoline] 25 mg PO TID hydroCHLOROthiazide [Hydrochlorothiazide] 25 mg PO DAILY Follow-up: PCP- Dr. Sams on 10/10/19 Keep GI appt in [place] on 10/06/19 - Discharge Data Discharge Date: 09/30/19 Discharge Disposition: Home, Self-Care 01 Condition: Good - Referral to Home Health Primary Care Physician: Fitz Infante MD - Patient Instructions Diet: Diabetic Diet Activity: As Tolerated Showering/Bathing: May Shower Notify Provider of: Fever, Increased Pain, Swelling and Redness, Drainage, Nausea and/or Vomiting Other/Special Instructions: Additional symptoms include chest pain, shortness of breath, abdominal pain, vomiting blood, black/bloody stools. Check sugars at least 4 times a day. Check BP at home and keep log, take to follow up appt. - Discharge Plan *PRESCRIPTION DRUG MONITORING PROGRAM REVIEWED*: No *COPY OF PRESCRIPTION DRUG MONITORING REPORT IN PATIENT IVELISSE: No Home Medications: Home Meds Insulin Glarg,Human.Rec.Analog [Lantus Solostar] 35 units SUBCUT BEDTIME [History] Insulin Aspart [NovoLOG] 0 unit SUBCUT ASDIRECTED PRN 05/23/18 [History] Ondansetron [Zofran ODT] 4 mg PO Q6H PRN 5 Days #20 tab.dis 09/24/19 [Rx] Doxazosin [Cardura] 4 mg PO BEDTIME 09/29/19 [History] Metoclopramide [Reglan] 5 mg PO TIDAC 09/29/19 [History] Metoprolol Succinate 200 mg PO DAILY 09/29/19 [History] Pantoprazole [ProTONIX] 40 mg PO DAILY 09/29/19 [History] Torsemide 20 mg PO DAILY 09/29/19 [History] atorvaSTATin [Lipitor] 80 mg PO BEDTIME 09/29/19 [History] hydrALAZINE [Apresoline] 25 mg PO TID 09/29/19 [History] hydroCHLOROthiazide [Hydrochlorothiazide] 25 mg PO DAILY 09/29/19 [History] Doxazosin [Cardura] 4 mg PO BEDTIME 09/30/19 [History] Insulin Aspart [NovoLOG] 0 unit SUBCUT .UP TO 60 UN DAILY 09/30/19 [History] Insulin Glarg,Human.Rec.Analog [Lantus] 34 unit SUBCUT BEDTIME 09/30/19 [History ] Patient Handouts: Vomiting, Adult, Acute Pain, Adult Referrals: Dennys Sams DO [Physician] - 10/10/19 10:45 am - Discharge Summary/Plan Comment DC Time >30 min.: No - Patient Data Vitals - Most Recent: Last Vital Signs Temp 98.7 F 09/30/19 16:00 Pulse 85 09/30/19 16:00 Resp 16 09/30/19 16:00 BP 167/101 H 09/30/19 16:00 Pulse Ox 100 09/30/19 16:00 Weight - Most Recent: 74.389 kg I&O - Last 24 hours: Intake & Output 09/30/19 09/30/19 09/30/19 06:59 14:59 22:59 Intake Total 3116 Balance 3116 Lab Results - Last 24 hrs: Laboratory Results - last 24 hr 09/29/19 09/29/19 09/29/19 Range/Units 17:19 17:19 17:19 WBC 8.33 (4.0-11.0) K/uL RBC 4.92 (4.50-5.90) M/uL Hgb 10.7 L (13.0-17.0) g/dL Hct 33.6 L (38.0-50.0) % MCV 68.3 L (80.0-98.0) fL MCH 21.7 L (27.0-32.0) pg MCHC 31.8 (31.0-37.0) g/dL RDW Std Deviation 39.2 (28.0-62.0) fl RDW Coeff of Dania 16 H (11.0-15.0) % Plt Count 391 (150-400) K/uL MPV 10.30 (7.40-12.00) fL Neut % (Auto) 74.0 (48.0-80.0) % Lymph % (Auto) 20.2 (16.0-40.0) % Moffat % (Auto) 4.1 (0.0-15.0) % Eos % (Auto) 1.3 (0.0-7.0) % Baso % (Auto) 0.4 (0.0-1.5) % Neut # (Auto) 6.2 H (1.4-5.7) K/uL Lymph # (Auto) 1.7 (0.6-2.4) K/uL Moffat # (Auto) 0.3 (0.0-0.8) K/uL Eos # (Auto) 0.1 (0.0-0.7) K/uL Baso # (Auto) 0.0 (0.0-0.1) K/uL Nucleated RBC % 0.0 /100WBC Nucleated RBCs # 0 K/uL VBG pH (7.31-7.41) VBG pCO2 (35-45) mmHG VBG pO2 (30-40) mmHG VBG HCO3 (22-30) mEq/L VBG Total CO2 (41-51) mmol/L VBG Base Excess (-3.0-3.0) Sodium 133 L (136-148) mmol/L Potassium 5.0 (3.5-5.1) mmol/L Chloride 97 L (98-107) mmol/L Carbon Dioxide 26.2 (21.0-32.0) mmol/L BUN 33 H (7.0-18.0) mg/dL Creatinine 2.8 H (0.8-1.3) mg/dL Est Cr Clr Drug Dosing 37.52 mL/min Estimated GFR (MDRD) 26.2 ml/min Glucose 566 H* (74-106) mg/dL POC Glucose (60-110) mg/dL Calcium 8.8 (8.5-10.1) mg/dL Total Bilirubin 0.2 (0.2-1.0) mg/dL AST 28 (15-37) IU/L ALT 39 (14-63) IU/L Alkaline Phosphatase 124 H (46-116) U/L Total Protein 6.9 (6.4-8.2) g/dL Albumin 2.6 L (3.4-5.0) g/dL Globulin 4.3 H (2.6-4.0) g/dL Albumin/Globulin Ratio 0.6 L (0.9-1.6) Lipase 41 L (73-393) U/L Urine Opiates Screen (NEGATIVE) Ur Oxycodone Screen (NEGATIVE) Urine Methadone Screen (NEGATIVE) Ur Barbiturates Screen (NEGATIVE) Ur Phencyclidine Scrn (NEGATIVE) Ur Amphetamine Screen (NEGATIVE) U Methamphetamines Scrn (NEGATIVE) U Benzodiazepines Scrn (NEGATIVE) U Cocaine Metab Screen (NEGATIVE) U Marijuana (THC) Screen (NEGATIVE) Ketones NEGATIVE (NEG) 09/29/19 09/29/19 09/29/19 Range/Units 18:04 19:44 23:59 WBC (4.0-11.0) K/uL RBC (4.50-5.90) M/uL Hgb (13.0-17.0) g/dL Hct (38.0-50.0) % MCV (80.0-98.0) fL MCH (27.0-32.0) pg MCHC (31.0-37.0) g/dL RDW Std Deviation (28.0-62.0) fl RDW Coeff of Dania (11.0-15.0) % Plt Count (150-400) K/uL MPV (7.40-12.00) fL Neut % (Auto) (48.0-80.0) % Lymph % (Auto) (16.0-40.0) % Moffat % (Auto) (0.0-15.0) % Eos % (Auto) (0.0-7.0) % Baso % (Auto) (0.0-1.5) % Neut # (Auto) (1.4-5.7) K/uL Lymph # (Auto) (0.6-2.4) K/uL Moffat # (Auto) (0.0-0.8) K/uL Eos # (Auto) (0.0-0.7) K/uL Baso # (Auto) (0.0-0.1) K/uL Nucleated RBC % /100WBC Nucleated RBCs # K/uL VBG pH 7.42 H (7.31-7.41) VBG pCO2 35 (35-45) mmHG VBG pO2 41 H (30-40) mmHG VBG HCO3 22 (22-30) mEq/L VBG Total CO2 21 L (41-51) mmol/L VBG Base Excess -1.7 (-3.0-3.0) Sodium (136-148) mmol/L Potassium (3.5-5.1) mmol/L Chloride (98-107) mmol/L Carbon Dioxide (21.0-32.0) mmol/L BUN (7.0-18.0) mg/dL Creatinine (0.8-1.3) mg/dL Est Cr Clr Drug Dosing mL/min Estimated GFR (MDRD) ml/min Glucose (74-106) mg/dL POC Glucose 395 H 29 L (60-110) mg/dL Calcium (8.5-10.1) mg/dL Total Bilirubin (0.2-1.0) mg/dL AST (15-37) IU/L ALT (14-63) IU/L Alkaline Phosphatase (46-116) U/L Total Protein (6.4-8.2) g/dL Albumin (3.4-5.0) g/dL Globulin (2.6-4.0) g/dL Albumin/Globulin Ratio (0.9-1.6) Lipase (73-393) U/L Urine Opiates Screen (NEGATIVE) Ur Oxycodone Screen (NEGATIVE) Urine Methadone Screen (NEGATIVE) Ur Barbiturates Screen (NEGATIVE) Ur Phencyclidine Scrn (NEGATIVE) Ur Amphetamine Screen (NEGATIVE) U Methamphetamines Scrn (NEGATIVE) U Benzodiazepines Scrn (NEGATIVE) U Cocaine Metab Screen (NEGATIVE) U Marijuana (THC) Screen (NEGATIVE) Ketones (NEG) 09/30/19 09/30/19 09/30/19 Range/Units 00:09 00:30 02:09 WBC (4.0-11.0) K/uL RBC (4.50-5.90) M/uL Hgb (13.0-17.0) g/dL Hct (38.0-50.0) % MCV (80.0-98.0) fL MCH (27.0-32.0) pg MCHC (31.0-37.0) g/dL RDW Std Deviation (28.0-62.0) fl RDW Coeff of Dania (11.0-15.0) % Plt Count (150-400) K/uL MPV (7.40-12.00) fL Neut % (Auto) (48.0-80.0) % Lymph % (Auto) (16.0-40.0) % Moffat % (Auto) (0.0-15.0) % Eos % (Auto) (0.0-7.0) % Baso % (Auto) (0.0-1.5) % Neut # (Auto) (1.4-5.7) K/uL Lymph # (Auto) (0.6-2.4) K/uL Moffat # (Auto) (0.0-0.8) K/uL Eos # (Auto) (0.0-0.7) K/uL Baso # (Auto) (0.0-0.1) K/uL Nucleated RBC % /100WBC Nucleated RBCs # K/uL VBG pH (7.31-7.41) VBG pCO2 (35-45) mmHG VBG pO2 (30-40) mmHG VBG HCO3 (22-30) mEq/L VBG Total CO2 (41-51) mmol/L VBG Base Excess (-3.0-3.0) Sodium (136-148) mmol/L Potassium (3.5-5.1) mmol/L Chloride (98-107) mmol/L Carbon Dioxide (21.0-32.0) mmol/L BUN (7.0-18.0) mg/dL Creatinine (0.8-1.3) mg/dL Est Cr Clr Drug Dosing mL/min Estimated GFR (MDRD) ml/min Glucose (74-106) mg/dL POC Glucose 50 L 119 H 95 (60-110) mg/dL Calcium (8.5-10.1) mg/dL Total Bilirubin (0.2-1.0) mg/dL AST (15-37) IU/L ALT (14-63) IU/L Alkaline Phosphatase (46-116) U/L Total Protein (6.4-8.2) g/dL Albumin (3.4-5.0) g/dL Globulin (2.6-4.0) g/dL Albumin/Globulin Ratio (0.9-1.6) Lipase (73-393) U/L Urine Opiates Screen (NEGATIVE) Ur Oxycodone Screen (NEGATIVE) Urine Methadone Screen (NEGATIVE) Ur Barbiturates Screen (NEGATIVE) Ur Phencyclidine Scrn (NEGATIVE) Ur Amphetamine Screen (NEGATIVE) U Methamphetamines Scrn (NEGATIVE) U Benzodiazepines Scrn (NEGATIVE) U Cocaine Metab Screen (NEGATIVE) U Marijuana (THC) Screen (NEGATIVE) Ketones (NEG) 09/30/19 09/30/19 09/30/19 Range/Units 04:39 04:59 06:00 WBC 10.33 (4.0-11.0) K/uL RBC 4.23 L (4.50-5.90) M/uL Hgb 9.1 L (13.0-17.0) g/dL Hct 28.6 L (38.0-50.0) % MCV 67.6 L (80.0-98.0) fL MCH 21.5 L (27.0-32.0) pg MCHC 31.8 (31.0-37.0) g/dL RDW Std Deviation 39.3 (28.0-62.0) fl RDW Coeff of Dania 16 H (11.0-15.0) % Plt Count 371 (150-400) K/uL MPV 10.10 (7.40-12.00) fL Neut % (Auto) 65.0 (48.0-80.0) % Lymph % (Auto) 26.3 (16.0-40.0) % Moffat % (Auto) 7.2 (0.0-15.0) % Eos % (Auto) 1.0 (0.0-7.0) % Baso % (Auto) 0.5 (0.0-1.5) % Neut # (Auto) 6.7 H (1.4-5.7) K/uL Lymph # (Auto) 2.7 H (0.6-2.4) K/uL Moffat # (Auto) 0.7 (0.0-0.8) K/uL Eos # (Auto) 0.1 (0.0-0.7) K/uL Baso # (Auto) 0.1 (0.0-0.1) K/uL Nucleated RBC % 0.0 /100WBC Nucleated RBCs # 0 K/uL VBG pH (7.31-7.41) VBG pCO2 (35-45) mmHG VBG pO2 (30-40) mmHG VBG HCO3 (22-30) mEq/L VBG Total CO2 (41-51) mmol/L VBG Base Excess (-3.0-3.0) Sodium (136-148) mmol/L Potassium (3.5-5.1) mmol/L Chloride (98-107) mmol/L Carbon Dioxide (21.0-32.0) mmol/L BUN (7.0-18.0) mg/dL Creatinine (0.8-1.3) mg/dL Est Cr Clr Drug Dosing mL/min Estimated GFR (MDRD) ml/min Glucose (74-106) mg/dL POC Glucose 25 L 115 H (60-110) mg/dL Calcium (8.5-10.1) mg/dL Total Bilirubin (0.2-1.0) mg/dL AST (15-37) IU/L ALT (14-63) IU/L Alkaline Phosphatase (46-116) U/L Total Protein (6.4-8.2) g/dL Albumin (3.4-5.0) g/dL Globulin (2.6-4.0) g/dL Albumin/Globulin Ratio (0.9-1.6) Lipase (73-393) U/L Urine Opiates Screen (NEGATIVE) Ur Oxycodone Screen (NEGATIVE) Urine Methadone Screen (NEGATIVE) Ur Barbiturates Screen (NEGATIVE) Ur Phencyclidine Scrn (NEGATIVE) Ur Amphetamine Screen (NEGATIVE) U Methamphetamines Scrn (NEGATIVE) U Benzodiazepines Scrn (NEGATIVE) U Cocaine Metab Screen (NEGATIVE) U Marijuana (THC) Screen (NEGATIVE) Ketones (NEG) 09/30/19 09/30/19 09/30/19 Range/Units 06:00 07:53 09:38 WBC (4.0-11.0) K/uL RBC (4.50-5.90) M/uL Hgb (13.0-17.0) g/dL Hct (38.0-50.0) % MCV (80.0-98.0) fL MCH (27.0-32.0) pg MCHC (31.0-37.0) g/dL RDW Std Deviation (28.0-62.0) fl RDW Coeff of Dania (11.0-15.0) % Plt Count (150-400) K/uL MPV (7.40-12.00) fL Neut % (Auto) (48.0-80.0) % Lymph % (Auto) (16.0-40.0) % Moffat % (Auto) (0.0-15.0) % Eos % (Auto) (0.0-7.0) % Baso % (Auto) (0.0-1.5) % Neut # (Auto) (1.4-5.7) K/uL Lymph # (Auto) (0.6-2.4) K/uL Moffat # (Auto) (0.0-0.8) K/uL Eos # (Auto) (0.0-0.7) K/uL Baso # (Auto) (0.0-0.1) K/uL Nucleated RBC % /100WBC Nucleated RBCs # K/uL VBG pH (7.31-7.41) VBG pCO2 (35-45) mmHG VBG pO2 (30-40) mmHG VBG HCO3 (22-30) mEq/L VBG Total CO2 (41-51) mmol/L VBG Base Excess (-3.0-3.0) Sodium 142 (136-148) mmol/L Potassium 4.1 (3.5-5.1) mmol/L Chloride 105 (98-107) mmol/L Carbon Dioxide 25.5 (21.0-32.0) mmol/L BUN 30 H (7.0-18.0) mg/dL Creatinine 2.3 H (0.8-1.3) mg/dL Est Cr Clr Drug Dosing 45.68 mL/min Estimated GFR (MDRD) 32.9 ml/min Glucose 120 H (74-106) mg/dL POC Glucose 74 34 L (60-110) mg/dL Calcium 8.3 L (8.5-10.1) mg/dL Total Bilirubin (0.2-1.0) mg/dL AST (15-37) IU/L ALT (14-63) IU/L Alkaline Phosphatase (46-116) U/L Total Protein (6.4-8.2) g/dL Albumin (3.4-5.0) g/dL Globulin (2.6-4.0) g/dL Albumin/Globulin Ratio (0.9-1.6) Lipase (73-393) U/L Urine Opiates Screen (NEGATIVE) Ur Oxycodone Screen (NEGATIVE) Urine Methadone Screen (NEGATIVE) Ur Barbiturates Screen (NEGATIVE) Ur Phencyclidine Scrn (NEGATIVE) Ur Amphetamine Screen (NEGATIVE) U Methamphetamines Scrn (NEGATIVE) U Benzodiazepines Scrn (NEGATIVE) U Cocaine Metab Screen (NEGATIVE) U Marijuana (THC) Screen (NEGATIVE) Ketones (NEG) 09/30/19 09/30/19 09/30/19 Range/Units 10:29 11:55 12:13 WBC (4.0-11.0) K/uL RBC (4.50-5.90) M/uL Hgb (13.0-17.0) g/dL Hct (38.0-50.0) % MCV (80.0-98.0) fL MCH (27.0-32.0) pg MCHC (31.0-37.0) g/dL RDW Std Deviation (28.0-62.0) fl RDW Coeff of Dania (11.0-15.0) % Plt Count (150-400) K/uL MPV (7.40-12.00) fL Neut % (Auto) (48.0-80.0) % Lymph % (Auto) (16.0-40.0) % Moffat % (Auto) (0.0-15.0) % Eos % (Auto) (0.0-7.0) % Baso % (Auto) (0.0-1.5) % Neut # (Auto) (1.4-5.7) K/uL Lymph # (Auto) (0.6-2.4) K/uL Moffat # (Auto) (0.0-0.8) K/uL Eos # (Auto) (0.0-0.7) K/uL Baso # (Auto) (0.0-0.1) K/uL Nucleated RBC % /100WBC Nucleated RBCs # K/uL VBG pH (7.31-7.41) VBG pCO2 (35-45) mmHG VBG pO2 (30-40) mmHG VBG HCO3 (22-30) mEq/L VBG Total CO2 (41-51) mmol/L VBG Base Excess (-3.0-3.0) Sodium (136-148) mmol/L Potassium (3.5-5.1) mmol/L Chloride (98-107) mmol/L Carbon Dioxide (21.0-32.0) mmol/L BUN (7.0-18.0) mg/dL Creatinine (0.8-1.3) mg/dL Est Cr Clr Drug Dosing mL/min Estimated GFR (MDRD) ml/min Glucose (74-106) mg/dL POC Glucose 132 H 97 (60-110) mg/dL Calcium (8.5-10.1) mg/dL Total Bilirubin (0.2-1.0) mg/dL AST (15-37) IU/L ALT (14-63) IU/L Alkaline Phosphatase (46-116) U/L Total Protein (6.4-8.2) g/dL Albumin (3.4-5.0) g/dL Globulin (2.6-4.0) g/dL Albumin/Globulin Ratio (0.9-1.6) Lipase (73-393) U/L Urine Opiates Screen NEGATIVE (NEGATIVE) Ur Oxycodone Screen NEGATIVE (NEGATIVE) Urine Methadone Screen NEGATIVE (NEGATIVE) Ur Barbiturates Screen NEGATIVE (NEGATIVE) Ur Phencyclidine Scrn NEGATIVE (NEGATIVE) Ur Amphetamine Screen NEGATIVE (NEGATIVE) U Methamphetamines Scrn NEGATIVE (NEGATIVE) U Benzodiazepines Scrn NEGATIVE (NEGATIVE) U Cocaine Metab Screen POSITIVE (NEGATIVE) U Marijuana (THC) Screen POSITIVE (NEGATIVE) Ketones (NEG) 09/30/19 Range/Units 16:14 WBC (4.0-11.0) K/uL RBC (4.50-5.90) M/uL Hgb (13.0-17.0) g/dL Hct (38.0-50.0) % MCV (80.0-98.0) fL MCH (27.0-32.0) pg MCHC (31.0-37.0) g/dL RDW Std Deviation (28.0-62.0) fl RDW Coeff of Dania (11.0-15.0) % Plt Count (150-400) K/uL MPV (7.40-12.00) fL Neut % (Auto) (48.0-80.0) % Lymph % (Auto) (16.0-40.0) % Moffat % (Auto) (0.0-15.0) % Eos % (Auto) (0.0-7.0) % Baso % (Auto) (0.0-1.5) % Neut # (Auto) (1.4-5.7) K/uL Lymph # (Auto) (0.6-2.4) K/uL Moffat # (Auto) (0.0-0.8) K/uL Eos # (Auto) (0.0-0.7) K/uL Baso # (Auto) (0.0-0.1) K/uL Nucleated RBC % /100WBC Nucleated RBCs # K/uL VBG pH (7.31-7.41) VBG pCO2 (35-45) mmHG VBG pO2 (30-40) mmHG VBG HCO3 (22-30) mEq/L VBG Total CO2 (41-51) mmol/L VBG Base Excess (-3.0-3.0) Sodium (136-148) mmol/L Potassium (3.5-5.1) mmol/L Chloride (98-107) mmol/L Carbon Dioxide (21.0-32.0) mmol/L BUN (7.0-18.0) mg/dL Creatinine (0.8-1.3) mg/dL Est Cr Clr Drug Dosing mL/min Estimated GFR (MDRD) ml/min Glucose (74-106) mg/dL POC Glucose 87 (60-110) mg/dL Calcium (8.5-10.1) mg/dL Total Bilirubin (0.2-1.0) mg/dL AST (15-37) IU/L ALT (14-63) IU/L Alkaline Phosphatase (46-116) U/L Total Protein (6.4-8.2) g/dL Albumin (3.4-5.0) g/dL Globulin (2.6-4.0) g/dL Albumin/Globulin Ratio (0.9-1.6) Lipase (73-393) U/L Urine Opiates Screen (NEGATIVE) Ur Oxycodone Screen (NEGATIVE) Urine Methadone Screen (NEGATIVE) Ur Barbiturates Screen (NEGATIVE) Ur Phencyclidine Scrn (NEGATIVE) Ur Amphetamine Screen (NEGATIVE) U Methamphetamines Scrn (NEGATIVE) U Benzodiazepines Scrn (NEGATIVE) U Cocaine Metab Screen (NEGATIVE) U Marijuana (THC) Screen (NEGATIVE) Ketones (NEG) Med Orders - Current: Current Medications Amlodipine Besylate (Norvasc) 10 mg PO BEDTIME [facility] Last Admin: 09/29/19 20:50 Dose: 10 mg Dextrose/Sodium Chloride (Dextrose 5%-1/2 Ns) 1,000 mls @ 125 mls/hr IV ASDIRECTED [facility] Last Admin: 09/30/19 10:53 Dose: 125 mls/hr Insulin Aspart (Novolog) 0 unit SUBCUT Q6HR [facility]; Protocol Last Admin: 09/30/19 12:06 Dose: Not Given Insulin Glargine (Lantus Solostar) 35 units SUBCUT BEDTIME [facility] Last Admin: 09/29/19 21:09 Dose: 35 units Metoclopramide HCl (Reglan) 5 mg PO Q6H PRN PRN Reason: Nausea/Vomiting Metoprolol Succinate (Toprol Xl) 200 mg PO DAILY [facility] Last Admin: 09/30/19 12:07 Dose: 200 mg Ondansetron HCl (Zofran) 4 mg IVPUSH Q4H PRN PRN Reason: Nausea/Vomiting Last Admin: 09/29/19 21:03 Dose: 4 mg Pantoprazole Sodium (Protonix Iv) 40 mg IVPUSH Q12HR [facility] Last Admin: 09/30/19 08:29 Dose: 40 mg Sodium Chloride (Saline Flush) 10 ml FLUSH ASDIRECTED PRN PRN Reason: Keep Vein Open Last Admin: 09/29/19 17:14 Dose: 10 ml Sodium Chloride (Saline Flush) 2.5 ml FLUSH ASDIRECTED PRN PRN Reason: Keep Vein Open Last Admin: 09/29/19 17:14 Dose: 2.5 ml Spironolactone (Aldactone) 25 mg PO BID [facility] Last Admin: 09/30/19 08:27 Dose: 25 mg Discontinued Medications Al Hydroxide/Mg Hydroxide (Mag-Al Plus) 30 ml PO ONETIME ONE Stop: 09/29/19 18:16 Last Admin: 09/29/19 18:21 Dose: 30 ml Dextrose/Water (Dextrose 50% In Water) 25 ml IVPUSH ONETIME ONE Stop: 09/30/19 00:05 Last Admin: 09/30/19 00:17 Dose: 25 ml Dextrose/Water (Dextrose 50% In Water) 25 ml IVPUSH ONETIME ONE Stop: 09/30/19 04:44 Last Admin: 09/30/19 04:53 Dose: 25 ml Dextrose/Water (Dextrose 50% In Water) Confirm Administered Dose 50 ml .ROUTE .STK-MED ONE Stop: 09/30/19 04:45 Last Admin: 09/30/19 04:48 Dose: Not Given Dextrose/Water (Dextrose 50% In Water) 50 ml IVPUSH ONETIME ONE Stop: 09/30/19 09:39 Last Admin: 09/30/19 09:48 Dose: 50 ml Famotidine (Pepcid) 20 mg IVPUSH ONETIME ONE Stop: 09/29/19 17:05 Last Admin: 09/29/19 17:18 Dose: 20 mg Haloperidol Lactate (Haldol) 5 mg IM ONETIME ONE Stop: 09/29/19 17:25 Last Admin: 09/29/19 17:29 Dose: 5 mg Sodium Chloride (Normal Saline) 1,000 mls @ 999 mls/hr IV .Bolus ONE Stop: 09/29/19 18:04 Last Admin: 09/29/19 17:13 Dose: 999 mls/hr Sodium Chloride (Normal Saline) 1,000 mls @ 999 mls/hr IV .BOLUS ONE Stop: 09/29/19 18:55 Last Admin: 09/29/19 18:01 Dose: 999 mls/hr Sodium Chloride (Normal Saline) 1,000 mls @ 125 mls/hr IV ASDIRECTED [facility] Last Admin: 09/30/19 05:58 Dose: 125 mls/hr Lorazepam (Ativan) 1 mg IVPUSH ONETIME ONE Stop: 09/29/19 19:24 Last Admin: 09/29/19 19:47 Dose: 1 mg Lorazepam (Ativan) 1 mg IVPUSH ONETIME ONE Stop: 09/30/19 07:57 Last Admin: 09/30/19 10:41 Dose: Not Given Lorazepam (Ativan) 1 mg IM ONETIME ONE Stop: 09/30/19 08:14 Last Admin: 09/30/19 08:19 Dose: 1 mg Morphine Sulfate (Morphine) 1 mg IVPUSH Q3HR PRN PRN Reason: Pain (severe 7-10) Ondansetron HCl (Zofran) 4 mg IVPUSH ONETIME ONE Stop: 09/29/19 17:04 Last Admin: 09/29/19 17:14 Dose: 4 mg
== END 2019-09-30 18:50 | disposition home or self-care (01) ==
LOC: MW.ED 16:44 → MW.MS 18:22
PROVIDERS: ADMIT Internal Medicine; ATTEND Internal Medicine
DX: K92.0 Hematemesis (principal); E10.65 Type 1 diabetes mellitus with hyperglycemia; E10.22 Type 1 diabetes mellitus with diabetic chronic kidney disease; N18.9 Chronic kidney disease, unspecified; N17.9 Acute kidney failure, unspecified; E10.649 Type 1 diabetes mellitus with hypoglycemia without coma; D63.1 Anemia in chronic kidney disease; I12.9 Hypertensive chronic kidney disease with stage 1 through stage 4 chronic kidney disease, or unspecified chronic kidney disease; E10.42 Type 1 diabetes mellitus with diabetic polyneuropathy; E10.43 Type 1 diabetes mellitus with diabetic autonomic (poly)neuropathy; E10.621 Type 1 diabetes mellitus with foot ulcer; L97.509 Non-pressure chronic ulcer of other part of unspecified foot with unspecified severity; K31.84 Gastroparesis; K21.9 Gastro-esophageal reflux disease without esophagitis; K44.9 Diaphragmatic hernia without obstruction or gangrene; H54.61 Unqualified visual loss, right eye, normal vision left eye; F41.9 Anxiety disorder, unspecified; Z88.8 Allergy status to other drugs, medicaments and biological substances; Z91.013 Allergy to seafood; Z88.0 Allergy status to penicillin; Z91.09 Other allergy status, other than to drugs and biological substances; Z79.4 Long term (current) use of insulin; Z79.899 Other long term (current) drug therapy; Z86.73 Personal history of transient ischemic attack (TIA), and cerebral infarction without residual deficits
CPT/HCPCS: 36415; 71045; 80048; 80053; 80305; 82009; 82803; 82962; 83690; 85025; A9270; C9113; J1630; J1815; J2060; J2405; J7030; J7042; S0028; 99284; J3490

== ENCOUNTER 2019-10-08 18:31 | Observation (INO) | payer SELFPAY ==
[2019-10-08] MEDS ORDERED: Sodium Chloride 0.9% 1,000 ML IV ONE (18:41)
[2019-10-08] MEDS ORDERED: Morphine 2 MG/ML Syringe IVPUSH ONE (18:41)
[2019-10-08] MEDS ORDERED: Ondansetron 4 MG/2 ML SDV IVPUSH ONE (18:48)
[2019-10-08] MEDS ORDERED: Ondansetron 4 MG/2 ML SDV ONE (18:48)
[2019-10-08] MEDS: Metoprolol Tartrate 5 MG/5 ML SDV IVPUSH SCH ×3 (18:55→19:15)
[2019-10-08] MEDS ORDERED: Metoprolol Tartrate 5 MG/5 ML SDV ONE (19:13)
[2019-10-08 19:15] LABS: BLOOD UREA NITROGEN,BUN 34 mg/dL (7.0-18.0); CARBON DIOXIDE,CO2 25.5 mmol/L (21.0-32.0); CHLORIDE,CL 111 mmol/L (98-107); GLUCOSE RANDOM 70 mg/dL (74-106); LIPASE 63 U/L (73-393); POTASSIUM,K 4.3 mmol/L (3.5-5.1); SODIUM,NA 146 mmol/L (136-148)
[2019-10-08] MEDS ORDERED: Enalaprilat 1.25 MG/ML SDV IVPUSH STA (19:32)
[2019-10-08] MEDS ORDERED: HYDROmorphone 1 MG/ML Syringe ONE (20:15)
[2019-10-08] MEDS ORDERED: HYDROmorphone 1 MG/ML Syringe IVPUSH ONE (20:15)
--- NOTE | 2019-10-08 20:42 | CT ---
CT abdomen and pelvis Technique: Multiple axial sections were obtained from above the dome of the diaphragm inferiorly through the pubic symphysis. Intravenous and oral contrast not utilized. Comparison: No prior CT abdomen or pelvis exam is available, previous renal ultrasound study of 08/01/19. Findings: Small nodule is noted within the right lower lung abutting the major fissure measuring 4 mm. No additional abnormality is seen within both lung bases. Liver contains no focal parenchymal abnormality. Spleen appears within normal limits. Kidneys show no abnormal calcifications. Gallbladder contains no calcified gallstones. No discrete abnormality is appreciated within the pancreas. Aorta shows no aneurysm. No retroperitoneal adenopathy or mesenteric abnormalities are seen. No pelvic mass or adenopathy is seen. No free fluid or inflammatory change is seen. Appendix is not definitely visualized on this noncontrast study. Bone window settings were reviewed which shows no acute osseous finding. Impression: 1. Small nodule within the right lung base. This measures 4 mm. If patient is not a smoker, this can be ignored. If patient is a smoker, recommend repeat noncontrast chest CT study in one year. 2. Nothing acute is appreciated on noncontrast CT study of the abdomen and pelvis. Diagnostic code #9 Study was dictated in [place] [employer] Time
[2019-10-08] MEDS ORDERED: Pantoprazole 80 MG in Sodium Chloride 0.9% 20 ML IVPUSH ONE (20:54)
--- NOTE | 2019-10-08 20:59 | EDM.PDOC ---
ED HPI GENERAL MEDICAL PROBLEM - General Chief Complaint: Abdominal Pain Stated Complaint: CHEST PAIN,VOMITTING Time Seen by Provider: 10/08/19 20:54 Source of Information: Reports: Patient - History of Present Illness INITIAL COMMENTS - FREE TEXT/NARRATIVE: HISTORY AND PHYSICAL: History of present illness: [Presents with chest pain as well as diffuse abdominal pain history of gastroparesis and medication noncompliance uncontrolled obesity diabetes hypertension Polysubstance abuse history known to use marijuana daily with cyclic vomiting he presents with vomiting slight hematemesis with retching on arrival blood pressure 260/1 40s on arrival with chest pain negative troponins patient was provided Lopressor and Vasotec as well as morphine and Dilaudid with this combination achieving some pain control and blood pressure improving to 220s over 1 teens No fever no current vomiting chills or sweats chest pain is resolved no shortness of breath or diaphoresis no headache dizziness or palpitation no bowel or urine symptoms continues to have 4 out of 10 abdominal pain diffuse] Review of systems: As per history of present illness and below otherwise all systems reviewed and negative. Past medical history: As per history of present illness and as reviewed below otherwise noncontributory. Surgical history: As per history of present illness and as reviewed below otherwise noncontributory. Social history: No reported history of drug or alcohol abuse. Family history: As per history of present illness and as reviewed below otherwise noncontributory. Physical exam: HEENT: Atraumatic, normocephalic, pupils reactive, negative for conjunctival pallor or scleral icterus, mucous membranes moist, throat clear, neck supple, nontender, trachea midline. Lungs: Clear to auscultation, breath sounds equal bilaterally, chest nontender. Heart: S1S2, regular, negative for clicks, rubs, or JVD. Abdomen: Soft, nondistended, use nonfocal tenderness . Negative for masses or hepatosplenomegaly. Negative for costovertebral tenderness. Pelvis: Stable nontender. Genitourinary: Deferred. Rectal: Deferred. Extremities: Atraumatic, negative for cords or calf pain. Neurovascular unremarkable. Neuro: Awake, alert, oriented. Cranial nerves II through XII unremarkable. Cerebellum unremarkable. Motor and sensory unremarkable throughout. Exam nonfocal. Diagnostics: [See CMP UA troponin EKg CT abdomen/pelvis with contrast ] Therapeutics: [Rester Vasotec Morphine Dilaudid Protonix Admit observation] Impression: [hypertTensive emergency Gastroparesis Noncompliance Chronic history baseline ] Definitive disposition and diagnosis as appropriate pending reevaluation and review of above. abd Pain Score (Numeric/FACES): 8 chest Pain Score (Numeric/FACES): 8 - Related Data Allergies Allergy/AdvReac Type Severity Reaction Status Date / Time shrimp Allergy Severe Swelling Verified 09/29/19 20:32 iodine Allergy Unknown Anaphylactic Verified 09/29/19 20:32 Shock Penicillins Allergy Unknown Anaphylactic Verified 09/29/19 20:32 Shock shellfish derived Allergy Anaphylactic Verified 09/29/19 20:32 Shock gluten Allergy Unknown Muscle Uncoded 09/29/19 20:32 Aches Home Meds: Home Meds Insulin Glarg,Human.Rec.Analog [Lantus Solostar] 35 units SUBCUT BEDTIME [History] Insulin Aspart [NovoLOG] 0 unit SUBCUT ASDIRECTED PRN 05/23/18 [History] Ondansetron [Zofran ODT] 4 mg PO Q6H PRN 5 Days #20 tab.dis 09/24/19 [Rx] Doxazosin [Cardura] 4 mg PO BEDTIME 09/29/19 [History] Metoclopramide [Reglan] 5 mg PO TIDAC 09/29/19 [History] Metoprolol Succinate 200 mg PO DAILY 09/29/19 [History] Pantoprazole [ProTONIX] 40 mg PO DAILY 09/29/19 [History] Torsemide 20 mg PO DAILY 09/29/19 [History] atorvaSTATin [Lipitor] 80 mg PO BEDTIME 09/29/19 [History] hydrALAZINE [Apresoline] 25 mg PO TID 09/29/19 [History] hydroCHLOROthiazide [Hydrochlorothiazide] 25 mg PO DAILY 09/29/19 [History] Doxazosin [Cardura] 4 mg PO BEDTIME 09/30/19 [History] Insulin Aspart [NovoLOG] 0 unit SUBCUT .UP TO 60 UN DAILY 09/30/19 [History] Insulin Glarg,Human.Rec.Analog [Lantus] 34 unit SUBCUT BEDTIME 09/30/19 [History ] Past Medical History - Past Health History Medical/Surgical History: Denies Medical/Surgical History HEENT History: Reports: Impaired Vision Other HEENT History: blind right eye Cardiovascular History: Reports: Hypertension Respiratory History: Reports: None Gastrointestinal History: Reports: Gastritis, GERD, Hiatal Hernia, Other (See Below) Other Gastrointestinal History: h/o gastric ulcers, h/o hiatal hernia; gastroparesis Genitourinary History: Reports: Chronic Renal Insuffiency, Diabetic Nephropathy Musculoskeletal History: Reports: Amputation Neurological History: Reports: Neuropathy, Peripheral Other Neuro History: stroke 3 months ago Psychiatric History: Reports: Anxiety Endocrine/Metabolic History: Reports: Diabetes, Type I Other Endocrine/Metabolic History: brittle diabetic. History of hyperkalemia and DKA Insulin Pump Model and Docket Clerk: None Hematologic History: Reports: Anemia Immunologic History: Reports: None Oncologic (Cancer) History: Reports: None Dermatologic History: Reports: Other (See Below) Other Dermatologic History: diabetic foot ulcers - Infectious Disease History Infectious Disease History: Reports: None Other Infectious Disease History: 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 - Past Surgical History Head Surgeries/Procedures: Reports: None Musculoskeletal Surgical History: Reports: Other (See Below) Other Musculoskeletal Surgeries/Procedures:: right BKA Social & Family History - Family History Family Medical History: Noncontributory Cardiac: Reports: High Cholesterol, Hypertension OBGYN: Reports: Neurological: Reports: None - Tobacco Use Smoking Status *Q: Never Smoker - Caffeine Use Caffeine Use: Reports: None Other Caffeine Use: daily Caffeine Use Comment: patient is uncooperated - Recreational Drug Use Recreational Drug Use: No - Living Situation & Occupation Living situation: Reports: Single Occupation: Employed (Currently unemployed.) ED ROS GENERAL - Review of Systems Review Of Systems: See Below ED EXAM, GENERAL - Physical Exam Exam: See Below Course - Vital Signs Last Recorded V/S: Last Vital Signs Temp 98 F 10/08/19 18:36 Pulse 95 10/08/19 20:21 Resp 22 H 10/08/19 20:21 BP 242/139 H 10/08/19 20:21 Pulse Ox 98 10/08/19 20:21 - Orders/Labs/Meds Orders: Active Orders 24 hr Category Date Time Status EKG 12 Lead [EKG Documentation Completion] [RC] STAT Care 10/08/19 19:03 Active Pantoprazole [ProTONIX IV] 80 mg Med 10/08/19 20:54 Active Sodium Chloride 0.9% [Normal Saline] 20 ml IVPUSH ONETIME Medication Orders Pantoprazole Sodium 80 mg/ (Sodium Chloride) 20 mls @ 420 mls/hr IVPUSH ONETIME ONE Stop: 10/08/19 20:56 Labs: Laboratory Tests 10/08/19 10/08/19 10/08/19 Range/Units 18:40 18:40 18:41 WBC 10.52 (4.0-11.0) K/uL RBC 4.68 (4.50-5.90) M/uL Hgb 10.1 L (13.0-17.0) g/dL Hct 32.4 L (38.0-50.0) % MCV 69.2 L (80.0-98.0) fL MCH 21.6 L (27.0-32.0) pg MCHC 31.2 (31.0-37.0) g/dL RDW Std Deviation 42.1 (28.0-62.0) fl RDW Coeff of Dania 17 H (11.0-15.0) % Plt Count 388 (150-400) K/uL MPV 9.70 (7.40-12.00) fL Neut % (Auto) 62.4 (48.0-80.0) % Lymph % (Auto) 28.1 (16.0-40.0) % [place] % (Auto) 6.3 (0.0-15.0) % Eos % (Auto) 2.9 (0.0-7.0) % Baso % (Auto) 0.3 (0.0-1.5) % Neut # (Auto) 6.6 H (1.4-5.7) K/uL Lymph # (Auto) 3.0 H (0.6-2.4) K/uL [place] # (Auto) 0.7 (0.0-0.8) K/uL Eos # (Auto) 0.3 (0.0-0.7) K/uL Baso # (Auto) 0.0 (0.0-0.1) K/uL Nucleated RBC % 0.0 /100WBC Nucleated RBCs # 0 K/uL Sodium 146 (136-148) mmol/L Potassium 4.3 (3.5-5.1) mmol/L Chloride 111 H (98-107) mmol/L Carbon Dioxide 25.5 (21.0-32.0) mmol/L BUN 34 H (7.0-18.0) mg/dL Creatinine 2.0 H (0.8-1.3) mg/dL Est Cr Clr Drug Dosing 52.53 mL/min Estimated GFR (MDRD) 38.7 ml/min Glucose 70 L (74-106) mg/dL POC Glucose 69 (60-110) mg/dL Calcium 8.6 (8.5-10.1) mg/dL Total Bilirubin 0.1 L (0.2-1.0) mg/dL AST 27 (15-37) IU/L ALT 39 (14-63) IU/L Alkaline Phosphatase 119 H (46-116) U/L Troponin I < 0.050 (0.000-0.056) ng/mL Total Protein 6.3 L (6.4-8.2) g/dL Albumin 2.7 L (3.4-5.0) g/dL Globulin 3.6 (2.6-4.0) g/dL Albumin/Globulin Ratio 0.8 L (0.9-1.6) Lipase 63 L (73-393) U/L Urine Color Urine Appearance Urine pH (5.0-8.0) Ur Specific Trade (1.001-1.035) Urine Protein (NEGATIVE) mg/dL Urine Glucose (UA) (NEGATIVE) mg/dL Urine Ketones (NEGATIVE) mg/dL Urine Occult Blood (NEGATIVE) Urine Nitrite (NEGATIVE) Urine Bilirubin (NEGATIVE) Urine Urobilinogen (<2.0) EU/dL Ur Leukocyte Esterase (NEGATIVE) Urine RBC (0-2/HPF) Urine WBC (0-5/HPF) Ur Epithelial Cells (NONE-FEW) Urine Bacteria (NEGATIVE) 10/08/19 Range/Units 19:26 WBC (4.0-11.0) K/uL RBC (4.50-5.90) M/uL Hgb (13.0-17.0) g/dL Hct (38.0-50.0) % MCV (80.0-98.0) fL MCH (27.0-32.0) pg MCHC (31.0-37.0) g/dL RDW Std Deviation (28.0-62.0) fl RDW Coeff of Dania (11.0-15.0) % Plt Count (150-400) K/uL MPV (7.40-12.00) fL Neut % (Auto) (48.0-80.0) % Lymph % (Auto) (16.0-40.0) % [place] % (Auto) (0.0-15.0) % Eos % (Auto) (0.0-7.0) % Baso % (Auto) (0.0-1.5) % Neut # (Auto) (1.4-5.7) K/uL Lymph # (Auto) (0.6-2.4) K/uL [place] # (Auto) (0.0-0.8) K/uL Eos # (Auto) (0.0-0.7) K/uL Baso # (Auto) (0.0-0.1) K/uL Nucleated RBC % /100WBC Nucleated RBCs # K/uL Sodium (136-148) mmol/L Potassium (3.5-5.1) mmol/L Chloride (98-107) mmol/L Carbon Dioxide (21.0-32.0) mmol/L BUN (7.0-18.0) mg/dL Creatinine (0.8-1.3) mg/dL Est Cr Clr Drug Dosing mL/min Estimated GFR (MDRD) ml/min Glucose (74-106) mg/dL POC Glucose (60-110) mg/dL Calcium (8.5-10.1) mg/dL Total Bilirubin (0.2-1.0) mg/dL AST (15-37) IU/L ALT (14-63) IU/L Alkaline Phosphatase (46-116) U/L Troponin I (0.000-0.056) ng/mL Total Protein (6.4-8.2) g/dL Albumin (3.4-5.0) g/dL Globulin (2.6-4.0) g/dL Albumin/Globulin Ratio (0.9-1.6) Lipase (73-393) U/L Urine Color YELLOW Urine Appearance CLEAR Urine pH 7.5 (5.0-8.0) Ur Specific [place] 1.025 (1.001-1.035) Urine Protein >=300 H (NEGATIVE) mg/dL Urine Glucose (UA) NEGATIVE (NEGATIVE) mg/dL Urine Ketones NEGATIVE (NEGATIVE) mg/dL Urine Occult Blood SMALL H (NEGATIVE) Urine Nitrite NEGATIVE (NEGATIVE) Urine Bilirubin NEGATIVE (NEGATIVE) Urine Urobilinogen 0.2 (<2.0) EU/dL Ur Leukocyte Esterase NEGATIVE (NEGATIVE) Urine RBC 1-3 (0-2/HPF) Urine WBC 0-1 (0-5/HPF) Ur Epithelial Cells RARE (NONE-FEW) Urine Bacteria RARE (NEGATIVE) Meds: Medications Generic Name Dose Route Start Last Admin Trade Name Freq PRN Reason Stop Dose Admin Pantoprazole Sodium 80 mg/ 20 mls @ 420 mls/hr 10/08/19 20:54 Sodium Chloride IVPUSH 10/08/19 20:56 ONETIME ONE Discontinued Medications Generic Name Dose Route Start Last Admin Trade Name Freq PRN Reason Stop Dose Admin Enalaprilat 0.625 mg 10/08/19 19:32 10/08/19 19:46 Vasotec Iv IVPUSH 10/08/19 19:33 0.625 mg NOW STA Administration Hydromorphone HCl 1 mg 10/08/19 20:15 10/08/19 20:19 Dilaudid IVPUSH 10/08/19 20:16 1 mg ONETIME ONE Administration Hydromorphone HCl Confirm 10/08/19 20:15 10/08/19 20:20 Dilaudid Administered 10/08/19 20:16 Not Given Dose 1 mg .ROUTE .STK-MED ONE Sodium Chloride 1,000 mls @ 999 mls/hr 10/08/19 18:41 10/08/19 18:52 Normal Saline IV 10/08/19 19:41 999 mls/hr STAT ONE Administration Metoprolol Tartrate 5 mg 10/08/19 18:45 10/08/19 19:15 Lopressor IVPUSH 10/08/19 18:56 5 mg Q5M MICHAEL Administration Metoprolol Tartrate Confirm 10/08/19 19:13 10/08/19 19:40 Lopressor Administered 10/08/19 19:14 Not Given Dose 5 mg .ROUTE .STK-MED ONE Morphine Sulfate 2 mg 10/08/19 18:41 10/08/19 18:59 Morphine IVPUSH 10/08/19 18:42 2 mg ONETIME ONE Administration Ondansetron HCl 8 mg 10/08/19 18:48 10/08/19 18:53 Zofran IVPUSH 10/08/19 18:49 8 mg ONETIME ONE Administration Ondansetron HCl Confirm 10/08/19 18:48 10/08/19 18:57 Zofran Administered 10/08/19 18:49 Not Given Dose 8 mg .ROUTE .STK-MED ONE Departure - Departure Time of Disposition: 20:57 Disposition: Home, Self-Care 01 Condition: Good Clinical Impression: Hypertensive emergency, History of - diabetes mellitus, Chronic kidney disease , stage 3 (moderate) Anemia in chronic kidney disease (CKD) Qualifiers: Chronic kidney disease stage: stage 3 (moderate) Qualified Code(s): N18.3 - Chronic kidney disease, stage 3 (moderate) Abdominal pain Qualifiers: Abdominal location: upper abdomen, unspecified Qualified Code(s): R10.10 - Upper abdominal pain, unspecified - Discharge Information Referrals: PCP,Unknown [Primary Care Provider] - Sepsis Event Note - Evaluation Sepsis Screening Result: Possible Sepsis Risk - Focused Exam Vital Signs: Vital Signs Temp Pulse Pulse Resp BP BP Pulse Ox 10/08/19 20:21 95 22 H 242/139 H 98 10/08/19 19:46 224/130 H 10/08/19 19:30 98 23 H 209/129 H 100 10/08/19 19:15 94 226/130 H 10/08/19 19:04 95 228/131 H 10/08/19 18:55 118 H 225/140 H 10/08/19 18:36 98 F 116 H 24 H 221/147 H 100 Date Exam was Performed: 10/08/19 Time Exam was Performed: 20:54 - My Orders Last 24 Hours: My Active Orders 10/08/19 19:03 EKG 12 Lead [EKG Documentation Completion] [RC] STAT 10/08/19 20:54 Pantoprazole [ProTONIX IV] 80 mg Sodium Chloride 0.9% [Normal Saline] 20 ml IVPUSH ONETIME - Assessment/Plan Last 24 Hours: My Active Orders 10/08/19 19:03 EKG 12 Lead [EKG Documentation Completion] [RC] STAT 10/08/19 20:54 Pantoprazole [ProTONIX IV] 80 mg Sodium Chloride 0.9% [Normal Saline] 20 ml IVPUSH ONETIME
[2019-10-08] MEDS: HYDROmorphone 1 MG/ML Syringe IVPUSH PRN (22:57)
[2019-10-08] MEDS ORDERED: Acetaminophen 325 MG Tab PO PRN (23:30)
--- NOTE | 2019-10-08 23:33 | PCM.HP.2 ---
H&P History of Present Illness - General Date of Service: 10/08/19 Admit Problem/Dx: Admission Diagnosis/Problem Admission Diagnosis/Problem Hypertensive emergency - History of Present Illness Initial Comments - Free Text/Narative: 34 yo male with pmh of diabetes and hypertension and multiple admissions for gatroparesis and chronic abdominal pain who presents with one day history of abdominal pain, nausea and vomiting. abd Pain Score (Numeric/FACES): 10 chest Pain Score (Numeric/FACES): 8 - Related Data Allergies/Adverse Reactions: Allergies Allergy/AdvReac Type Severity Reaction Status Date / Time shrimp Allergy Severe Swelling Verified 10/08/19 23:51 iodine Allergy Unknown Anaphylactic Verified 10/08/19 23:51 Shock Penicillins Allergy Unknown Anaphylactic Verified 10/08/19 23:51 Shock shellfish derived Allergy Anaphylactic Verified 10/08/19 23:51 Shock gluten Allergy Unknown Muscle Uncoded 10/08/19 23:51 Aches Home Medications: Home Meds Insulin Glarg,Human.Rec.Analog [Lantus Solostar] 35 units SUBCUT BEDTIME [History] Doxazosin [Cardura] 4 mg PO BEDTIME 09/29/19 [History] Metoclopramide [Reglan] 5 mg PO TIDAC 09/29/19 [History] Metoprolol Succinate 200 mg PO DAILY 09/29/19 [History] Pantoprazole [ProTONIX] 40 mg PO DAILY 09/29/19 [History] Torsemide 20 mg PO DAILY 09/29/19 [History] atorvaSTATin [Lipitor] 80 mg PO BEDTIME 09/29/19 [History] hydrALAZINE [Apresoline] 25 mg PO TID 09/29/19 [History] hydroCHLOROthiazide [Hydrochlorothiazide] 25 mg PO DAILY 09/29/19 [History] Insulin Aspart [NovoLOG] 0 unit SUBCUT .UP TO 60 UN DAILY 09/30/19 [History] Past Medical History - Past Health History Medical/Surgical History: Denies Medical/Surgical History HEENT History: Reports: Impaired Vision Other HEENT History: blind right eye Cardiovascular History: Reports: Hypertension Respiratory History: Reports: None Gastrointestinal History: Reports: Gastritis, GERD, Hiatal Hernia, Other (See Below) Other Gastrointestinal History: h/o gastric ulcers, h/o hiatal hernia; gastroparesis Genitourinary History: Reports: Chronic Renal Insuffiency, Diabetic Nephropathy Musculoskeletal History: Reports: Amputation Neurological History: Reports: Neuropathy, Peripheral Other Neuro History: stroke 3 months ago Psychiatric History: Reports: Anxiety Endocrine/Metabolic History: Reports: Diabetes, Type I Other Endocrine/Metabolic History: brittle diabetic. History of hyperkalemia and DKA Insulin Pump Model and Lease Purchase Driver: None Hematologic History: Reports: Anemia Immunologic History: Reports: None Oncologic (Cancer) History: Reports: None Dermatologic History: Reports: Other (See Below) Other Dermatologic History: diabetic foot ulcers - Infectious Disease History Infectious Disease History: Reports: Chicken Pox Other Infectious Disease History: 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 - Past Surgical History Head Surgeries/Procedures: Reports: None Musculoskeletal Surgical History: Reports: Other (See Below) Other Musculoskeletal Surgeries/Procedures:: right BKA Social & Family History - Family History Family Medical History: Noncontributory Cardiac: Reports: High Cholesterol, Hypertension OBGYN: Reports: Neurological: Reports: None Psychiatric: Reports: Anxiety - Tobacco Use Smoking Status *Q: Unknown Ever Smoked - Caffeine Use Caffeine Use: Reports: Coffee, Energy Drinks, Soda Other Caffeine Use: daily Caffeine Use Comment: patient is uncooperated - Recreational Drug Use Recreational Drug Use: No - Living Situation & Occupation Living situation: Reports: Single Occupation: Employed (Currently unemployed.) H&P Review of Systems - Review of Systems: Review Of Systems: Comprehensive ROS is negative, except as noted in HPI. Exam - Exam Exam: See Below - Vital Signs Vital Signs: Last Vital Signs Temp 35.7 C 10/08/19 22:08 Pulse 107 H 10/08/19 22:08 Resp 22 H 10/08/19 22:08 BP 268/152 H 10/08/19 22:08 Pulse Ox 96 10/08/19 22:08 Weight: 72.575 kg - Exam General: Alert, Oriented HEENT: Mucosa Moist & [place] Lungs: Clear to Auscultation, Normal Respiratory Effort Cardiovascular: Regular Rate, Regular Rhythm GI/Abdominal Exam: Soft, Non-Tender Extremities: Non-Tender, No Pedal Edema Skin: Warm, Dry, Intact Neurological: No: Focal Deficit - Patient Data Lab Results Last 24 hrs: Laboratory Results - last 24 hr 10/08/19 10/08/19 10/08/19 Range/Units 18:40 18:40 18:41 WBC 10.52 (4.0-11.0) K/uL RBC 4.68 (4.50-5.90) M/uL Hgb 10.1 L (13.0-17.0) g/dL Hct 32.4 L (38.0-50.0) % MCV 69.2 L (80.0-98.0) fL MCH 21.6 L (27.0-32.0) pg MCHC 31.2 (31.0-37.0) g/dL RDW Std Deviation 42.1 (28.0-62.0) fl RDW Coeff of Dania 17 H (11.0-15.0) % Plt Count 388 (150-400) K/uL MPV 9.70 (7.40-12.00) fL Neut % (Auto) 62.4 (48.0-80.0) % Lymph % (Auto) 28.1 (16.0-40.0) % [place] % (Auto) 6.3 (0.0-15.0) % Eos % (Auto) 2.9 (0.0-7.0) % Baso % (Auto) 0.3 (0.0-1.5) % Neut # (Auto) 6.6 H (1.4-5.7) K/uL Lymph # (Auto) 3.0 H (0.6-2.4) K/uL [place] # (Auto) 0.7 (0.0-0.8) K/uL Eos # (Auto) 0.3 (0.0-0.7) K/uL Baso # (Auto) 0.0 (0.0-0.1) K/uL Nucleated RBC % 0.0 /100WBC Nucleated RBCs # 0 K/uL Sodium 146 (136-148) mmol/L Potassium 4.3 (3.5-5.1) mmol/L Chloride 111 H (98-107) mmol/L Carbon Dioxide 25.5 (21.0-32.0) mmol/L BUN 34 H (7.0-18.0) mg/dL Creatinine 2.0 H (0.8-1.3) mg/dL Est Cr Clr Drug Dosing 52.53 mL/min Estimated GFR (MDRD) 38.7 ml/min Glucose 70 L (74-106) mg/dL POC Glucose 69 (60-110) mg/dL Calcium 8.6 (8.5-10.1) mg/dL Total Bilirubin 0.1 L (0.2-1.0) mg/dL AST 27 (15-37) IU/L ALT 39 (14-63) IU/L Alkaline Phosphatase 119 H (46-116) U/L Troponin I < 0.050 (0.000-0.056) ng/mL Total Protein 6.3 L (6.4-8.2) g/dL Albumin 2.7 L (3.4-5.0) g/dL Globulin 3.6 (2.6-4.0) g/dL Albumin/Globulin Ratio 0.8 L (0.9-1.6) Lipase 63 L (73-393) U/L Urine Color Urine Appearance Urine pH (5.0-8.0) Ur Specific [place] (1.001-1.035) Urine Protein (NEGATIVE) mg/dL Urine Glucose (UA) (NEGATIVE) mg/dL Urine Ketones (NEGATIVE) mg/dL Urine Occult Blood (NEGATIVE) Urine Nitrite (NEGATIVE) Urine Bilirubin (NEGATIVE) Urine Urobilinogen (<2.0) EU/dL Ur Leukocyte Esterase (NEGATIVE) Urine RBC (0-2/HPF) Urine WBC (0-5/HPF) Ur Epithelial Cells (NONE-FEW) Urine Bacteria (NEGATIVE) 10/08/19 10/08/19 Range/Units 19:26 23:04 WBC (4.0-11.0) K/uL RBC (4.50-5.90) M/uL Hgb (13.0-17.0) g/dL Hct (38.0-50.0) % MCV (80.0-98.0) fL MCH (27.0-32.0) pg MCHC (31.0-37.0) g/dL RDW Std Deviation (28.0-62.0) fl RDW Coeff of Dania (11.0-15.0) % Plt Count (150-400) K/uL MPV (7.40-12.00) fL Neut % (Auto) (48.0-80.0) % Lymph % (Auto) (16.0-40.0) % [place] % (Auto) (0.0-15.0) % Eos % (Auto) (0.0-7.0) % Baso % (Auto) (0.0-1.5) % Neut # (Auto) (1.4-5.7) K/uL Lymph # (Auto) (0.6-2.4) K/uL [place] # (Auto) (0.0-0.8) K/uL Eos # (Auto) (0.0-0.7) K/uL Baso # (Auto) (0.0-0.1) K/uL Nucleated RBC % /100WBC Nucleated RBCs # K/uL Sodium (136-148) mmol/L Potassium (3.5-5.1) mmol/L Chloride (98-107) mmol/L Carbon Dioxide (21.0-32.0) mmol/L BUN (7.0-18.0) mg/dL Creatinine (0.8-1.3) mg/dL Est Cr Clr Drug Dosing mL/min Estimated GFR (MDRD) ml/min Glucose (74-106) mg/dL POC Glucose 272 H (60-110) mg/dL Calcium (8.5-10.1) mg/dL Total Bilirubin (0.2-1.0) mg/dL AST (15-37) IU/L ALT (14-63) IU/L Alkaline Phosphatase (46-116) U/L Troponin I (0.000-0.056) ng/mL Total Protein (6.4-8.2) g/dL Albumin (3.4-5.0) g/dL Globulin (2.6-4.0) g/dL Albumin/Globulin Ratio (0.9-1.6) Lipase (73-393) U/L Urine Color YELLOW Urine Appearance CLEAR Urine pH 7.5 (5.0-8.0) Ur Specific [place] 1.025 (1.001-1.035) Urine Protein >=300 H (NEGATIVE) mg/dL Urine Glucose (UA) NEGATIVE (NEGATIVE) mg/dL Urine Ketones NEGATIVE (NEGATIVE) mg/dL Urine Occult Blood SMALL H (NEGATIVE) Urine Nitrite NEGATIVE (NEGATIVE) Urine Bilirubin NEGATIVE (NEGATIVE) Urine Urobilinogen 0.2 (<2.0) EU/dL Ur Leukocyte Esterase NEGATIVE (NEGATIVE) Urine RBC 1-3 (0-2/HPF) Urine WBC 0-1 (0-5/HPF) Ur Epithelial Cells RARE (NONE-FEW) Urine Bacteria RARE (NEGATIVE) Result Diagrams: 10/09/19 16:45 10/09/19 16:45 Sepsis Event Note - Evaluation Sepsis Screening Result: No Definite Risk - Focused Exam Vital Signs: Vital Signs Temp Pulse Pulse Resp BP BP Pulse Ox 10/08/19 22:08 35.7 C 107 H 22 H 268/152 H 96 10/08/19 21:50 90 16 179/102 H 99 10/08/19 21:10 89 18 181/112 H 100 10/08/19 20:43 88 18 184/112 H 99 10/08/19 20:21 95 22 H 242/139 H 98 10/08/19 19:46 224/130 H 10/08/19 19:30 98 23 H 209/129 H 100 10/08/19 19:15 94 226/130 H 10/08/19 19:04 95 228/131 H 10/08/19 18:55 118 H 225/140 H 10/08/19 18:36 36.6 C 116 H 24 H 221/147 H 100 Date Exam was Performed: 10/09/19 Time Exam was Performed: 19:00 Problem List Initiated/Reviewed/Updated: Yes Orders Last 24hrs: Active Orders 24 hr Category Date Time Status Admission Status [Patient Status] [ADT] Stat ADT 10/08/19 20:59 Active EKG 12 Lead [EKG Documentation Completion] [RC] STAT Care 10/08/19 19:03 Active Telemetry Monitoring [Cardiac Monitoring] [RC] Q8H Care 10/08/19 21:45 Active HYDROmorphone [Dilaudid] Med 10/08/19 22:50 Active 1 mg IVPUSH Q3H PRN Insulin Aspart [NovoLOG] Med 10/08/19 23:30 Ordered See Protocol SUBCUT Q6H Medication Orders Hydromorphone HCl (Dilaudid) 1 mg IVPUSH Q3H PRN PRN Reason: Pain Last Admin: 10/08/19 22:57 Dose: 1 mg Insulin Aspart (Novolog) 0 unit SUBCUT Q6H MICHAEL; Protocol Assessment/Plan Comment:: 34 yo male admitted for acute flare of chronic abdominal pain, likely due to gastroparesis.
[2019-10-08] MEDS: Insulin Aspart 100 Units/ML 3 ML Pen SUBCUT SCH (23:41)
[2019-10-09] MEDS: hydrALAZINE 25 MG Tab PO SCH ×3 (00:31→16:39)
[2019-10-09] MEDS: Sodium Chloride 0.9% 1,000 ML IV SCH ×3 (00:32→15:38)
[2019-10-09] MEDS: Ondansetron 4 MG/2 ML SDV IVPUSH PRN ×2 (00:43→12:27)
[2019-10-09] MEDS: HYDROmorphone 1 MG/ML Syringe IVPUSH PRN ×5 (01:50→15:34)
[2019-10-09 06:41] LABS: CARBON DIOXIDE,CO2 24.3 mmol/L (21.0-32.0); POTASSIUM,K 5.3 mmol/L (3.5-5.1)
[2019-10-09] MEDS: Insulin Aspart 100 Units/ML 3 ML Pen SUBCUT SCH ×3 (06:50→17:56)
--- NOTE | 2019-10-09 08:42 | PCM.PN ---
- General Info Date of Service: 10/09/19 Subjective Update: Patient admitted for acute flare of chronic nausea/vomiting/abdominal pain. Reports improvement in these symptoms. No episodes of vomiting. Pain controlled with Dilaudid. Also had elevated BP, improving. Denies chest pain, headache, or vision changes. Is supposed to be NPO but nursing caught him drinking from the sink in his room. - Review of Systems General: Reports: No Symptoms HEENT: Reports: No Symptoms Pulmonary: Reports: No Symptoms Cardiovascular: Reports: No Symptoms Gastrointestinal: Reports: Abdominal Pain, Nausea. Denies: Vomiting Genitourinary: Reports: No Symptoms Musculoskeletal: Reports: No Symptoms Skin: Reports: No Symptoms Neurological: Reports: No Symptoms Psychiatric: Reports: No Symptoms - Patient Data Vitals - Most Recent: Last Vital Signs Temp 97.8 F 10/09/19 07:10 Pulse 100 10/09/19 07:10 Resp 18 10/09/19 07:10 BP 174/81 H 10/09/19 07:21 Pulse Ox 96 10/09/19 07:10 Weight - Most Recent: 72.575 kg I&O - Last 24 Hours: Intake & Output 10/08/19 10/09/19 10/09/19 22:59 06:59 14:59 Intake Total 468 Output Total 1200 Balance -732 Lab Results Last 24 Hours: Laboratory Results - last 24 hr 10/08/19 10/08/19 10/08/19 Range/Units 18:40 18:40 18:41 WBC 10.52 (4.0-11.0) K/uL RBC 4.68 (4.50-5.90) M/uL Hgb 10.1 L (13.0-17.0) g/dL Hct 32.4 L (38.0-50.0) % MCV 69.2 L (80.0-98.0) fL MCH 21.6 L (27.0-32.0) pg MCHC 31.2 (31.0-37.0) g/dL RDW Std Deviation 42.1 (28.0-62.0) fl RDW Coeff of Dania 17 H (11.0-15.0) % Plt Count 388 (150-400) K/uL MPV 9.70 (7.40-12.00) fL Neut % (Auto) 62.4 (48.0-80.0) % Lymph % (Auto) 28.1 (16.0-40.0) % [place] % (Auto) 6.3 (0.0-15.0) % Eos % (Auto) 2.9 (0.0-7.0) % Baso % (Auto) 0.3 (0.0-1.5) % Neut # (Auto) 6.6 H (1.4-5.7) K/uL Lymph # (Auto) 3.0 H (0.6-2.4) K/uL [place] # (Auto) 0.7 (0.0-0.8) K/uL Eos # (Auto) 0.3 (0.0-0.7) K/uL Baso # (Auto) 0.0 (0.0-0.1) K/uL Nucleated RBC % 0.0 /100WBC Nucleated RBCs # 0 K/uL Sodium 146 (136-148) mmol/L Potassium 4.3 (3.5-5.1) mmol/L Chloride 111 H (98-107) mmol/L Carbon Dioxide 25.5 (21.0-32.0) mmol/L BUN 34 H (7.0-18.0) mg/dL Creatinine 2.0 H (0.8-1.3) mg/dL Est Cr Clr Drug Dosing 52.53 mL/min Estimated GFR (MDRD) 38.7 ml/min Glucose 70 L (74-106) mg/dL POC Glucose 69 (60-110) mg/dL Calcium 8.6 (8.5-10.1) mg/dL Total Bilirubin 0.1 L (0.2-1.0) mg/dL AST 27 (15-37) IU/L ALT 39 (14-63) IU/L Alkaline Phosphatase 119 H (46-116) U/L Troponin I < 0.050 (0.000-0.056) ng/mL Total Protein 6.3 L (6.4-8.2) g/dL Albumin 2.7 L (3.4-5.0) g/dL Globulin 3.6 (2.6-4.0) g/dL Albumin/Globulin Ratio 0.8 L (0.9-1.6) Lipase 63 L (73-393) U/L Urine Color Urine Appearance Urine pH (5.0-8.0) Ur Specific [place] (1.001-1.035) Urine Protein (NEGATIVE) mg/dL Urine Glucose (UA) (NEGATIVE) mg/dL Urine Ketones (NEGATIVE) mg/dL Urine Occult Blood (NEGATIVE) Urine Nitrite (NEGATIVE) Urine Bilirubin (NEGATIVE) Urine Urobilinogen (<2.0) EU/dL Ur Leukocyte Esterase (NEGATIVE) Urine RBC (0-2/HPF) Urine WBC (0-5/HPF) Ur Epithelial Cells (NONE-FEW) Urine Bacteria (NEGATIVE) 10/08/19 10/08/19 10/09/19 Range/Units 19:26 23:04 05:55 WBC (4.0-11.0) K/uL RBC (4.50-5.90) M/uL Hgb (13.0-17.0) g/dL Hct (38.0-50.0) % MCV (80.0-98.0) fL MCH (27.0-32.0) pg MCHC (31.0-37.0) g/dL RDW Std Deviation (28.0-62.0) fl RDW Coeff of Dania (11.0-15.0) % Plt Count (150-400) K/uL MPV (7.40-12.00) fL Neut % (Auto) (48.0-80.0) % Lymph % (Auto) (16.0-40.0) % [place] % (Auto) (0.0-15.0) % Eos % (Auto) (0.0-7.0) % Baso % (Auto) (0.0-1.5) % Neut # (Auto) (1.4-5.7) K/uL Lymph # (Auto) (0.6-2.4) K/uL [place] # (Auto) (0.0-0.8) K/uL Eos # (Auto) (0.0-0.7) K/uL Baso # (Auto) (0.0-0.1) K/uL Nucleated RBC % /100WBC Nucleated RBCs # K/uL Sodium 142 (136-148) mmol/L Potassium 5.3 H (3.5-5.1) mmol/L Chloride 110 H (98-107) mmol/L Carbon Dioxide 24.3 (21.0-32.0) mmol/L BUN 37 H (7.0-18.0) mg/dL Creatinine 2.2 H (0.8-1.3) mg/dL Est Cr Clr Drug Dosing 47.76 mL/min Estimated GFR (MDRD) 34.6 ml/min Glucose 332 H (74-106) mg/dL POC Glucose 272 H (60-110) mg/dL Calcium 7.9 L (8.5-10.1) mg/dL Total Bilirubin 0.1 L (0.2-1.0) mg/dL AST 18 (15-37) IU/L ALT 30 (14-63) IU/L Alkaline Phosphatase 90 (46-116) U/L Troponin I (0.000-0.056) ng/mL Total Protein 5.4 L (6.4-8.2) g/dL Albumin 2.1 L (3.4-5.0) g/dL Globulin 3.3 (2.6-4.0) g/dL Albumin/Globulin Ratio 0.6 L (0.9-1.6) Lipase (73-393) U/L Urine Color YELLOW Urine Appearance CLEAR Urine pH 7.5 (5.0-8.0) Ur Specific [place] 1.025 (1.001-1.035) Urine Protein >=300 H (NEGATIVE) mg/dL Urine Glucose (UA) NEGATIVE (NEGATIVE) mg/dL Urine Ketones NEGATIVE (NEGATIVE) mg/dL Urine Occult Blood SMALL H (NEGATIVE) Urine Nitrite NEGATIVE (NEGATIVE) Urine Bilirubin NEGATIVE (NEGATIVE) Urine Urobilinogen 0.2 (<2.0) EU/dL Ur Leukocyte Esterase NEGATIVE (NEGATIVE) Urine RBC 1-3 (0-2/HPF) Urine WBC 0-1 (0-5/HPF) Ur Epithelial Cells RARE (NONE-FEW) Urine Bacteria RARE (NEGATIVE) Med Orders - Current: Current Medications Acetaminophen (Tylenol) 650 mg PO Q4H PRN PRN Reason: Pain (Mild 1-3)/fever Last Admin: 10/09/19 00:31 Dose: 650 mg Hydralazine HCl (Apresoline) 25 mg PO Q8H MICHAEL Last Admin: 10/09/19 07:21 Dose: 25 mg Hydrochlorothiazide (Hydrochlorothiazide) 25 mg PO DAILY [facility] [place] Hydromorphone HCl (Dilaudid) 1 mg IVPUSH Q3H PRN PRN Reason: Pain Last Admin: 10/09/19 08:28 Dose: 1 mg Sodium Chloride (Normal Saline) 1,000 mls @ 125 mls/hr IV ASDIRECTED [facility] Last Admin: 10/09/19 08:28 Dose: 125 mls/hr Insulin Aspart (Novolog) 0 unit SUBCUT Q6H [facility] [place]; Protocol Last Admin: 10/09/19 06:50 Dose: 4 unit Non-Formulary Medication (Metoprolol Succinate [Metoprolol Succinate]) 200 mg PO DAILY [facility] [place] Ondansetron HCl (Zofran) 4 mg IVPUSH Q4H PRN PRN Reason: Nausea Last Admin: 10/09/19 00:43 Dose: 4 mg Discontinued Medications Enalaprilat (Vasotec Iv) 0.625 mg IVPUSH NOW STA Stop: 10/08/19 19:33 Last Admin: 10/08/19 19:46 Dose: 0.625 mg Hydromorphone HCl (Dilaudid) 1 mg IVPUSH ONETIME ONE Stop: 10/08/19 20:16 Last Admin: 10/08/19 20:19 Dose: 1 mg Hydromorphone HCl (Dilaudid) Confirm Administered Dose 1 mg .ROUTE .STK-MED ONE Stop: 10/08/19 20:16 Last Admin: 10/08/19 20:20 Dose: Not Given Sodium Chloride (Normal Saline) 1,000 mls @ 999 mls/hr IV STAT ONE Stop: 10/08/19 19:41 Last Admin: 10/08/19 18:52 Dose: 999 mls/hr Pantoprazole Sodium 80 mg/ (Sodium Chloride) 20 mls @ 420 mls/hr IVPUSH ONETIME ONE Stop: 10/08/19 20:56 Last Admin: 10/08/19 21:50 Dose: 420 mls/hr Metoprolol Tartrate (Lopressor) 5 mg IVPUSH Q5M [facility] Stop: 10/08/19 18:56 Last Admin: 10/08/19 19:15 Dose: 5 mg Metoprolol Tartrate (Lopressor) Confirm Administered Dose 5 mg .ROUTE .STK-MED ONE Stop: 10/08/19 19:14 Last Admin: 10/08/19 19:40 Dose: Not Given Morphine Sulfate (Morphine) 2 mg IVPUSH ONETIME ONE Stop: 10/08/19 18:42 Last Admin: 10/08/19 18:59 Dose: 2 mg Ondansetron HCl (Zofran) 8 mg IVPUSH ONETIME ONE Stop: 10/08/19 18:49 Last Admin: 10/08/19 18:53 Dose: 8 mg Ondansetron HCl (Zofran) Confirm Administered Dose 8 mg .ROUTE .STK-MED ONE Stop: 10/08/19 18:49 Last Admin: 10/08/19 18:57 Dose: Not Given - Exam General: Alert, Oriented, Cooperative Lungs: Clear to Auscultation, Normal Respiratory Effort Cardiovascular: Regular Rate, Regular Rhythm GI/Abdominal Exam: Normal Bowel Sounds, Soft, Non-Tender, No Distention Extremities: No Pedal Edema Skin: Warm, Dry, Intact Neurological: No New Focal Deficit Psy/Mental Status: Alert, Normal Affect, Normal Mood Sepsis Event Note - Evaluation Sepsis Screening Result: No Definite Risk - Focused Exam Vital Signs: Vital Signs Temp Pulse Resp BP BP Pulse Ox 10/09/19 07:21 174/81 H 10/09/19 07:10 97.8 F 100 18 171/91 H 96 10/09/19 03:30 97.8 F 94 15 143/81 H 98 10/09/19 00:31 220/130 H 10/08/19 23:30 96.6 F 103 H 17 232/121 H 96 10/08/19 22:08 96.2 F 107 H 22 H 268/152 H 96 10/08/19 21:50 90 16 179/102 H 99 10/08/19 21:10 89 18 181/112 H 100 10/08/19 20:43 88 18 184/112 H 99 Date Exam was Performed: 10/09/19 Time Exam was Performed: 10:07 - Problem List Review Problem List Initiated/Reviewed/Updated: Yes - My Orders Last 24 Hours: My Active Orders 10/09/19 09:00 Metoprolol Succinate [Metoprolol Succinate] 200 mg PO DAILY hydroCHLOROthiazide 25 mg PO DAILY - Plan Plan:: 1. Hypertensive Emergency-resolved, still has elevated BP but improved- resume home meds 2. Chronic abdominal pain with nausea/vomiting with gastroparesis- NPO except ice chips, Dilaudid for pain control, continue IVF 3. Hyperglycemia in DM without DKA- on accucehks and sliding scale. Hold lantus until eating again as he is prone to hypoglycemia 4. Hyperkalemia- continue IVF, recheck in PM
[2019-10-09] MEDS: Pantoprazole 40 MG Tab.CR PO SCH (09:51)
[2019-10-09] MEDS: Metoprolol Succinate 100 MG Tab.ER PO SCH (09:51)
[2019-10-09] MEDS: Hydrochlorothiazide 25 MG Tab PO SCH (09:51)
[2019-10-09] MEDS: Labetalol 100 MG/20 ML MDV IVPUSH PRN ×2 (13:43→21:25)
[2019-10-09] MEDS: Torsemide 20 MG Tab PO SCH (13:43)
[2019-10-09] MEDS ORDERED: Promethazine 25 MG/ML SDV IM ONE (14:58)
[2019-10-09 17:10] LABS: CARBON DIOXIDE,CO2 22.4 mmol/L (21.0-32.0); POTASSIUM,K 4.4 mmol/L (3.5-5.1)
[2019-10-09] MEDS ORDERED: Insulin Glargine,Human Rec. Analog 100 Units/ML 3 ML Pen SUBCUT ONE (20:47)
[2019-10-09] MEDS ORDERED: Doxazosin 4 MG Tab PO SCH (21:00)
[2019-10-09] MEDS ORDERED: atorvaSTATin 40 MG Tab PO SCH (21:00)
[2019-10-09] MEDS ORDERED: Insulin Aspart 100 Units/ML 3 ML Pen SUBCUT ONE (22:39)
[2019-10-10] MEDS: Insulin Aspart 100 Units/ML 3 ML Pen SUBCUT SCH ×5 (00:39→17:11)
[2019-10-10] MEDS: hydrALAZINE 25 MG Tab PO SCH ×3 (00:40→15:59)
[2019-10-10] MEDS: Sodium Chloride 0.9% 1,000 ML IV SCH ×2 (00:43→12:00)
[2019-10-10] MEDS ORDERED: 50% Dextrose in Water 50 ML Syringe IVPUSH ONE (05:30)
[2019-10-10 06:35] LABS: CARBON DIOXIDE,CO2 23.3 mmol/L (21.0-32.0); POTASSIUM,K 3.9 mmol/L (3.5-5.1)
[2019-10-10] MEDS: Pantoprazole 40 MG Tab.CR PO SCH (07:04)
[2019-10-10] MEDS: Torsemide 20 MG Tab PO SCH (09:19)
[2019-10-10] MEDS: Metoprolol Succinate 100 MG Tab.ER PO SCH (09:20)
[2019-10-10] MEDS: Hydrochlorothiazide 25 MG Tab PO SCH (09:21)
[2019-10-10] MEDS ORDERED: Metoclopramide 10 MG/2 ML SDV IVPUSH ONE (14:34)
[2019-10-10 15:41] VITALS: BP 179/103; PULSE 89
--- NOTE | 2019-10-10 16:06 | PCM.DCSUM1 ---
Discharge Summary - Hospital Course Brief History: 34 yo male with pmh of diabetes and hypertension and multiple admissions for gatroparesis and chronic abdominal pain who presents with one day history of abdominal pain, nausea and vomiting. Diagnosis: Stroke: No - Discharge Data Discharge Date: 10/10/19 Discharge Disposition: Home, Self-Care 01 Condition: Stable - Referral to Home Health Primary Care Physician: PCP Unknown - Patient Instructions Diet: Diabetic Diet, GI Soft/Low Residue/Low Fiber Activity: As Tolerated, Rest and Relax Today Showering/Bathing: May Shower Notify Provider of: Fever, Increased Pain, Swelling and Redness, Drainage, Nausea and/or Vomiting - Discharge Plan *PRESCRIPTION DRUG MONITORING PROGRAM REVIEWED*: Not Applicable *COPY OF PRESCRIPTION DRUG MONITORING REPORT IN PATIENT IVELISSE: Not Applicable Prescriptions/Med Rec: Metoclopramide [Reglan] 5 mg PO TIDAC #90 tablet Pantoprazole [ProTONIX] 40 mg PO DAILY #30 tab.cr Home Medications: Home Meds Insulin Glarg,Human.Rec.Analog [Lantus Solostar] 35 units SUBCUT BEDTIME [History] Doxazosin [Cardura] 4 mg PO BEDTIME 09/29/19 [History] Metoprolol Succinate 200 mg PO DAILY 09/29/19 [History] Torsemide 20 mg PO DAILY 09/29/19 [History] atorvaSTATin [Lipitor] 80 mg PO BEDTIME 09/29/19 [History] hydrALAZINE [Apresoline] 25 mg PO TID 09/29/19 [History] hydroCHLOROthiazide [Hydrochlorothiazide] 25 mg PO DAILY 09/29/19 [History] Insulin Aspart [NovoLOG] 0 unit SUBCUT .UP TO 60 UN DAILY 09/30/19 [History] Metoclopramide [Reglan] 5 mg PO TIDAC #90 tablet 10/10/19 [Rx] Pantoprazole [ProTONIX] 40 mg PO DAILY #30 tab.cr 10/10/19 [Rx] Oxygen Therapy Mode: Room Air Patient Handouts: Metoclopramide tablets, Abdominal Pain, Adult, [id number], Pantoprazole tablets Referrals: Fitz Infante MD [Physician] - 10/20/19 9:00 am - Discharge Summary/Plan Comment DC Time >30 min.: No Discharge Summary/Plan Comment: Admitting Diagnoses: HTN abdominal pain nausea Gastroparesis Discharge Diagnoses: HTN abdominal pain nausea Gastroparesis Waqas was admitted for his usual abdominal pain related to gastroparesis. He is noted to be likely non-complaint with medications as follow up with pharmacy report he has noted picked up medications is the recent time. He continues to report he is complaint will all medications. he was noted to be self injecting insulin in his room without letting nursing know. he had event of hypoglycemia. He was given D50, allowed to eat as nausea and abdominal pain subsided. He was given Reglan and felt improved. BP stable, he was restarted on home medications. Asked if he needed refills on medications and he stated he needed only Protonix and Reglan. He was urged to continue with referral to GI for gastroparesis. he is to return to ED or clinic if concerns should arise. - Patient Data Vitals - Most Recent: Last Vital Signs Temp 99.2 F 10/10/19 15:40 Pulse 89 10/10/19 15:40 Resp 16 10/10/19 15:40 BP 179/103 H 10/10/19 15:59 Pulse Ox 97 10/10/19 15:40 Weight - Most Recent: 72.575 kg I&O - Last 24 hours: Intake & Output 10/10/19 10/10/19 10/10/19 06:59 14:59 22:59 Intake Total 990 Balance 990 Lab Results - Last 24 hrs: Laboratory Results - last 24 hr 10/09/19 10/09/19 10/09/19 Range/Units 16:45 16:45 17:33 WBC 10.63 (4.0-11.0) K/uL RBC 4.02 L (4.50-5.90) M/uL Hgb 8.6 L (13.0-17.0) g/dL Hct 27.9 L (38.0-50.0) % MCV 69.4 L (80.0-98.0) fL MCH 21.4 L (27.0-32.0) pg MCHC 30.8 L (31.0-37.0) g/dL RDW Std Deviation 42.1 (28.0-62.0) fl RDW Coeff of Dania 17 H (11.0-15.0) % Plt Count 321 (150-400) K/uL MPV 9.80 (7.40-12.00) fL Neut % (Auto) 81.9 H (48.0-80.0) % Lymph % (Auto) 11.9 L (16.0-40.0) % [place] % (Auto) 5.7 (0.0-15.0) % Eos % (Auto) 0.2 (0.0-7.0) % Baso % (Auto) 0.3 (0.0-1.5) % Neut # (Auto) 8.7 H (1.4-5.7) K/uL Lymph # (Auto) 1.3 (0.6-2.4) K/uL [place] # (Auto) 0.6 (0.0-0.8) K/uL Eos # (Auto) 0.0 (0.0-0.7) K/uL Baso # (Auto) 0.0 (0.0-0.1) K/uL Nucleated RBC % 0.0 /100WBC Nucleated RBCs # 0 K/uL Sodium 142 (136-148) mmol/L Potassium 4.4 (3.5-5.1) mmol/L Chloride 108 H (98-107) mmol/L Carbon Dioxide 22.4 (21.0-32.0) mmol/L BUN 37 H (7.0-18.0) mg/dL Creatinine 2.2 H (0.8-1.3) mg/dL Est Cr Clr Drug Dosing 47.60 mL/min Estimated GFR (MDRD) 34.6 ml/min Glucose 349 H (74-106) mg/dL POC Glucose 352 H (60-110) mg/dL Calcium 8.0 L (8.5-10.1) mg/dL 10/09/19 10/09/19 10/10/19 Range/Units 20:17 22:15 00:16 WBC (4.0-11.0) K/uL RBC (4.50-5.90) M/uL Hgb (13.0-17.0) g/dL Hct (38.0-50.0) % MCV (80.0-98.0) fL MCH (27.0-32.0) pg MCHC (31.0-37.0) g/dL RDW Std Deviation (28.0-62.0) fl RDW Coeff of Dania (11.0-15.0) % Plt Count (150-400) K/uL MPV (7.40-12.00) fL Neut % (Auto) (48.0-80.0) % Lymph % (Auto) (16.0-40.0) % [place] % (Auto) (0.0-15.0) % Eos % (Auto) (0.0-7.0) % Baso % (Auto) (0.0-1.5) % Neut # (Auto) (1.4-5.7) K/uL Lymph # (Auto) (0.6-2.4) K/uL [place] # (Auto) (0.0-0.8) K/uL Eos # (Auto) (0.0-0.7) K/uL Baso # (Auto) (0.0-0.1) K/uL Nucleated RBC % /100WBC Nucleated RBCs # K/uL Sodium (136-148) mmol/L Potassium (3.5-5.1) mmol/L Chloride (98-107) mmol/L Carbon Dioxide (21.0-32.0) mmol/L BUN (7.0-18.0) mg/dL Creatinine (0.8-1.3) mg/dL Est Cr Clr Drug Dosing mL/min Estimated GFR (MDRD) ml/min Glucose (74-106) mg/dL POC Glucose 429 H 446 H 293 H (60-110) mg/dL Calcium (8.5-10.1) mg/dL 10/10/19 10/10/19 10/10/19 Range/Units 05:26 06:10 06:10 WBC 8.82 (4.0-11.0) K/uL RBC 3.80 L (4.50-5.90) M/uL Hgb 8.2 L (13.0-17.0) g/dL Hct 26.1 L (38.0-50.0) % MCV 68.7 L (80.0-98.0) fL MCH 21.6 L (27.0-32.0) pg MCHC 31.4 (31.0-37.0) g/dL RDW Std Deviation 41.5 (28.0-62.0) fl RDW Coeff of Dania 17 H (11.0-15.0) % Plt Count 317 (150-400) K/uL MPV 9.80 (7.40-12.00) fL Neut % (Auto) 67.7 (48.0-80.0) % Lymph % (Auto) 24.6 (16.0-40.0) % [place] % (Auto) 6.5 (0.0-15.0) % Eos % (Auto) 1.0 (0.0-7.0) % Baso % (Auto) 0.2 (0.0-1.5) % Neut # (Auto) 6.0 H (1.4-5.7) K/uL Lymph # (Auto) 2.2 (0.6-2.4) K/uL [place] # (Auto) 0.6 (0.0-0.8) K/uL Eos # (Auto) 0.1 (0.0-0.7) K/uL Baso # (Auto) 0.0 (0.0-0.1) K/uL Nucleated RBC % 0.0 /100WBC Nucleated RBCs # 0 K/uL Sodium 144 (136-148) mmol/L Potassium 3.9 (3.5-5.1) mmol/L Chloride 111 H (98-107) mmol/L Carbon Dioxide 23.3 (21.0-32.0) mmol/L BUN 35 H (7.0-18.0) mg/dL Creatinine 2.1 H (0.8-1.3) mg/dL Est Cr Clr Drug Dosing 49.86 mL/min Estimated GFR (MDRD) 36.6 ml/min Glucose 145 H (74-106) mg/dL POC Glucose 37 L (60-110) mg/dL Calcium 7.9 L (8.5-10.1) mg/dL 10/10/19 10/10/19 Range/Units 06:11 10:22 WBC (4.0-11.0) K/uL RBC (4.50-5.90) M/uL Hgb (13.0-17.0) g/dL Hct (38.0-50.0) % MCV (80.0-98.0) fL MCH (27.0-32.0) pg MCHC (31.0-37.0) g/dL RDW Std Deviation (28.0-62.0) fl RDW Coeff of Dania (11.0-15.0) % Plt Count (150-400) K/uL MPV (7.40-12.00) fL Neut % (Auto) (48.0-80.0) % Lymph % (Auto) (16.0-40.0) % [place] % (Auto) (0.0-15.0) % Eos % (Auto) (0.0-7.0) % Baso % (Auto) (0.0-1.5) % Neut # (Auto) (1.4-5.7) K/uL Lymph # (Auto) (0.6-2.4) K/uL [place] # (Auto) (0.0-0.8) K/uL Eos # (Auto) (0.0-0.7) K/uL Baso # (Auto) (0.0-0.1) K/uL Nucleated RBC % /100WBC Nucleated RBCs # K/uL Sodium (136-148) mmol/L Potassium (3.5-5.1) mmol/L Chloride (98-107) mmol/L Carbon Dioxide (21.0-32.0) mmol/L BUN (7.0-18.0) mg/dL Creatinine (0.8-1.3) mg/dL Est Cr Clr Drug Dosing mL/min Estimated GFR (MDRD) ml/min Glucose (74-106) mg/dL POC Glucose 130 H 101 (60-110) mg/dL Calcium (8.5-10.1) mg/dL Med Orders - Current: Current Medications Acetaminophen (Tylenol) 650 mg PO Q4H PRN PRN Reason: Pain (Mild 1-3)/fever Last Admin: 10/09/19 00:31 Dose: 650 mg Atorvastatin Calcium (Lipitor) 80 mg PO BEDTIME MICHAEL Last Admin: 10/09/19 21:29 Dose: 80 mg Doxazosin Mesylate (Cardura) 4 mg PO BEDTIME MICHAEL Last Admin: 10/09/19 21:29 Dose: 4 mg Hydralazine HCl (Apresoline) 25 mg PO Q8H MICHAEL Last Admin: 10/10/19 15:59 Dose: 25 mg Hydrochlorothiazide (Hydrochlorothiazide) 25 mg PO DAILY [facility] Last Admin: 10/10/19 09:21 Dose: 25 mg Hydromorphone HCl (Dilaudid) 1 mg IVPUSH Q3H PRN PRN Reason: Pain Last Admin: 10/09/19 15:34 Dose: 1 mg Insulin Aspart (Novolog) 0 unit SUBCUT TIDAC [facility]; Protocol Last Admin: 10/10/19 11:51 Dose: Not Given Labetalol HCl (Normodyne) 20 mg IVPUSH Q4H PRN; Protocol PRN Reason: Hypertension Last Admin: 10/09/19 21:25 Dose: 20 mg Metoclopramide HCl (Reglan) 5 mg PO TIDAC [facility] Metoprolol Succinate (Toprol Xl) 200 mg PO DAILY [facility] Last Admin: 10/10/19 09:20 Dose: 200 mg Ondansetron HCl (Zofran) 4 mg IVPUSH Q4H PRN PRN Reason: Nausea Last Admin: 10/09/19 12:27 Dose: 4 mg Pantoprazole Sodium (Protonix) 40 mg PO ACBREAKFAST [facility] Last Admin: 10/10/19 07:04 Dose: 40 mg Torsemide (Demadex) 20 mg PO DAILY [facility] Last Admin: 10/10/19 09:19 Dose: 20 mg Discontinued Medications Dextrose/Water (Dextrose 50% In Water) 50 ml IVPUSH ONETIME ONE Stop: 10/10/19 05:31 Last Admin: 10/10/19 05:41 Dose: 50 ml Enalaprilat (Vasotec Iv) 0.625 mg IVPUSH NOW STA Stop: 10/08/19 19:33 Last Admin: 10/08/19 19:46 Dose: 0.625 mg Hydromorphone HCl (Dilaudid) 1 mg IVPUSH ONETIME ONE Stop: 10/08/19 20:16 Last Admin: 10/08/19 20:19 Dose: 1 mg Hydromorphone HCl (Dilaudid) Confirm Administered Dose 1 mg .ROUTE .STK-MED ONE Stop: 10/08/19 20:16 Last Admin: 10/08/19 20:20 Dose: Not Given Sodium Chloride (Normal Saline) 1,000 mls @ 999 mls/hr IV STAT ONE Stop: 10/08/19 19:41 Last Admin: 10/08/19 18:52 Dose: 999 mls/hr Pantoprazole Sodium 80 mg/ (Sodium Chloride) 20 mls @ 420 mls/hr IVPUSH ONETIME ONE Stop: 10/08/19 20:56 Last Admin: 10/08/19 21:50 Dose: 420 mls/hr Sodium Chloride (Normal Saline) 1,000 mls @ 125 mls/hr IV ASDIRECTED [facility] Last Admin: 10/10/19 12:00 Dose: 125 mls/hr Insulin Aspart (Novolog) 0 unit SUBCUT Q6H [facility]; Protocol Last Admin: 10/10/19 11:41 Dose: Not Given Insulin Aspart (Novolog) 5 unit SUBCUT NOW ONE Stop: 10/09/19 22:40 Last Admin: 10/09/19 22:50 Dose: 5 units Insulin Glargine (Lantus Solostar) 15 units SUBCUT BEDTIME ONE Stop: 10/09/19 20:48 Last Admin: 10/09/19 22:52 Dose: 15 units Metoclopramide HCl (Reglan) 10 mg IVPUSH ONETIME ONE Stop: 10/10/19 14:35 Last Admin: 10/10/19 14:47 Dose: 10 mg Metoprolol Tartrate (Lopressor) 5 mg IVPUSH Q5M [facility] Stop: 10/08/19 18:56 Last Admin: 10/08/19 19:15 Dose: 5 mg Metoprolol Tartrate (Lopressor) Confirm Administered Dose 5 mg .ROUTE .STK-MED ONE Stop: 10/08/19 19:14 Last Admin: 10/08/19 19:40 Dose: Not Given Morphine Sulfate (Morphine) 2 mg IVPUSH ONETIME ONE Stop: 10/08/19 18:42 Last Admin: 10/08/19 18:59 Dose: 2 mg Ondansetron HCl (Zofran) 8 mg IVPUSH ONETIME ONE Stop: 10/08/19 18:49 Last Admin: 10/08/19 18:53 Dose: 8 mg Ondansetron HCl (Zofran) Confirm Administered Dose 8 mg .ROUTE .STK-MED ONE Stop: 10/08/19 18:49 Last Admin: 10/08/19 18:57 Dose: Not Given Promethazine HCl (Phenergan) 25 mg IM ONETIME ONE Stop: 10/09/19 14:59 Last Admin: 10/09/19 15:32 Dose: 25 mg
[2019-10-10] MEDS ORDERED: Metoclopramide 5 MG Tab PO SCH (17:00)
== END 2019-10-10 17:45 | disposition home or self-care (01) ==
LOC: MW.ED 18:31 → MW.MS 21:22
PROVIDERS: ADMIT Internal Medicine; ATTEND Internal Medicine
DX: E10.43 Type 1 diabetes mellitus with diabetic autonomic (poly)neuropathy (principal); K31.84 Gastroparesis; K21.9 Gastro-esophageal reflux disease without esophagitis; I12.9 Hypertensive chronic kidney disease with stage 1 through stage 4 chronic kidney disease, or unspecified chronic kidney disease; E10.22 Type 1 diabetes mellitus with diabetic chronic kidney disease; N18.3 Chronic kidney disease, stage 3 (moderate); E10.21 Type 1 diabetes mellitus with diabetic nephropathy; Z91.013 Allergy to seafood; Z91.041 Radiographic dye allergy status; Z88.0 Allergy status to penicillin; Z91.018 Allergy to other foods; Z79.4 Long term (current) use of insulin; Z79.899 Other long term (current) drug therapy; Z91.14 Patient's other noncompliance with medication regimen
CPT/HCPCS: 36415; 74176; 80048; 80053; 81001; 82962; 83690; 84484; 85025; 93005; A9270; C9113; J1170; J1815; J2270; J2405; J2550; J2765; J3490; J7030; 96361; 96374; 96375; 99284; 99285-25

== ENCOUNTER 2019-10-14 14:44 | Observation (INO) | payer OTHER ==
[2019-10-14] MEDS ORDERED: Sodium Chloride 0.9% 10 ML Syringe FLUSH PRN (14:48)
[2019-10-14] MEDS ORDERED: Sodium Chloride 0.9% 1,000 ML IV ONE ×3 (14:48→17:55)
[2019-10-14] MEDS ORDERED: Sodium Chloride 0.9% 2.5 ML Syringe FLUSH PRN (14:48)
[2019-10-14] MEDS ORDERED: Ondansetron 4 MG/2 ML SDV IVPUSH ONE (14:48)
[2019-10-14] MEDS ORDERED: HYDROmorphone 1 MG/ML Syringe IVPUSH ONE ×2 (15:02→18:11)
--- NOTE | 2019-10-14 15:16 | EDM.PDOC ---
ED HPI GENERAL MEDICAL PROBLEM - General Chief Complaint: Abdominal Pain Stated Complaint: UNKNOWN Time Seen by Provider: 10/14/19 14:46 Source of Information: Reports: Patient History Limitations: Reports: No Limitations - History of Present Illness INITIAL COMMENTS - FREE TEXT/NARRATIVE: HISTORY OF PRESENT ILLNESS: Patient is a 34-year-old male with history of type 1 diabetes, gastroparesis and ulcers done to the ER with reports of "pain all over" and emesis today. States he has been compliant with his insulin and diet. States he checked his sugar earlier today and was in the 280s. Denies any recent infection other than emesis today. Does also report diarrhea today. No recent fevers or chills. No retrosternal chest pain or dyspnea. No rash or neck stiffness. Denies any urinary symptoms. History is limited as patient moaning and noncompliant with answering questions, attempting to kick staff. REVIEW OF SYSTEMS: Other than the symptoms associated with the present events, the following is reported with regard to recent health: General: (-) fever. HENT: (-) congestion. Respiratory: (-) cough. Cardiovascular: (-) chest pain. GI: (+) abdominal pain. (+) n/v/d : (-) urinary complaints. Musculoskeletal: (+) generalized myalgias Endocrine: (+) generalized weakness. Neurological: (-) localized weakness. Skin: (-) rash PAST MEDICAL HISTORY: reviewed as per nursing notes SOCIAL HISTORY: reviewed as per nursing notes, MEDICATIONS: Per nurse's note ALLERGIES: Per nurse's note, reviewed by me PHYSICAL EXAMINATION: GENERALIZED APPEARANCE: well developed, well nourished in moderate distress VITAL SIGNS: Per nurse's note, reviewed by me (initial RR entered incorrectly by RN) SKIN: Warm, dry; (-) cyanosis; (-) rash. HEAD: (-) scalp swelling, (-) tenderness. EYES: (-) conjunctival pallor, (-) scleral icterus. ENMT: (-) stridor; mucous membranes moist. NECK: (-) tenderness, (-) stiffness, CHEST AND RESPIRATORY: (-) rales, (-) rhonchi, (-) wheezes; breath sounds equal bilaterally. HEART AND CARDIOVASCULAR: (-) irregularity; (-) murmur, (-) gallop. ABDOMEN AND GI: Soft; (+)diffuse mild tenderness, (-) guarding, (-) rebound, ( -) palpable masses, (-) CVAT EXTREMITIES: (+) right BKA NEURO AND PSYCH: Alert. Cranial nerves grossly intact; strength symmetric. gait steady DIAGNOSTICS: EKG: st at 107bpm. nml axis. q wave v1,2. artifact present. no st elevation. CT abd/pelvis: as read by radiologist, reviewed by myself Labs ordered and reviewed. EMERGENCY DEPARTMENT COURSE AND TREATMENT: Patient's condition improved during Emergency Department evaluation. IVF started. CMP returned and K noted, started on insulin drip and 20 meq of KCL added to NS over 2 hours. Hyperglycemia protocol initiated, pt not in DKA. Given Zofran and Dilaudid. Given Hydralazine for hypertension. CT noted, no evidence of UTI on labs. Call placed to Dr. Ambrosio who is present in ED and agrees to admit patient under Dr. Means. PLAN AND FOLLOW-UP: admit Everywhere Pain Score (Numeric/FACES): 10 - Related Data Allergies Allergy/AdvReac Type Severity Reaction Status Date / Time shrimp Allergy Severe Swelling Verified 10/08/19 23:51 iodine Allergy Unknown Anaphylactic Verified 10/08/19 23:51 Shock Penicillins Allergy Unknown Anaphylactic Verified 10/08/19 23:51 Shock shellfish derived Allergy Anaphylactic Verified 10/08/19 23:51 Shock gluten Allergy Unknown Muscle Uncoded 10/08/19 23:51 Aches Home Meds: Home Meds Doxazosin [Cardura] 4 mg PO BEDTIME 09/29/19 [History] Metoprolol Succinate 200 mg PO DAILY 09/29/19 [History] Torsemide 20 mg PO DAILY 09/29/19 [History] atorvaSTATin [Lipitor] 80 mg PO BEDTIME 09/29/19 [History] hydrALAZINE [Apresoline] 25 mg PO TID 09/29/19 [History] Insulin Aspart [NovoLOG] 0 unit SUBCUT .UP TO 60 UN DAILY 09/30/19 [History] Metoclopramide [Reglan] 5 mg PO TIDAC #90 tablet 10/10/19 [Rx] Pantoprazole [ProTONIX] 40 mg PO DAILY #30 tab.cr 10/10/19 [Rx] Past Medical History - Past Health History Medical/Surgical History: Denies Medical/Surgical History HEENT History: Reports: Impaired Vision Other HEENT History: blind right eye Cardiovascular History: Reports: Hypertension Respiratory History: Reports: None Gastrointestinal History: Reports: Gastritis, GERD, Hiatal Hernia, Other (See Below) Other Gastrointestinal History: h/o gastric ulcers, h/o hiatal hernia; gastroparesis Genitourinary History: Reports: Chronic Renal Insuffiency, Diabetic Nephropathy Musculoskeletal History: Reports: Amputation Neurological History: Reports: Neuropathy, Peripheral Other Neuro History: stroke 3 months ago Psychiatric History: Reports: Anxiety Endocrine/Metabolic History: Reports: Diabetes, Type I Other Endocrine/Metabolic History: brittle diabetic. History of hyperkalemia and DKA Insulin Pump Model and Topper Packer: None Hematologic History: Reports: Anemia Immunologic History: Reports: None Oncologic (Cancer) History: Reports: None Dermatologic History: Reports: Other (See Below) Other Dermatologic History: diabetic foot ulcers - Infectious Disease History Infectious Disease History: Reports: Chicken Pox Other Infectious Disease History: 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 - Past Surgical History Head Surgeries/Procedures: Reports: None Musculoskeletal Surgical History: Reports: Other (See Below) Other Musculoskeletal Surgeries/Procedures:: right BKA Social & Family History - Family History Family Medical History: Noncontributory Cardiac: Reports: High Cholesterol, Hypertension OBGYN: Reports: Neurological: Reports: None Psychiatric: Reports: Anxiety - Caffeine Use Caffeine Use: Reports: Coffee, Energy Drinks, Soda Other Caffeine Use: daily Caffeine Use Comment: patient is uncooperated - Living Situation & Occupation Living situation: Reports: Single Occupation: Employed (Currently unemployed.) ED ROS GENERAL - Review of Systems Review Of Systems: See Below (see dictation) ED EXAM, GENERAL - Physical Exam Exam: See Below (see dictation) Course - Vital Signs Last Recorded V/S: Last Vital Signs Temp 96.8 F 10/14/19 15:04 Pulse 104 H 10/14/19 17:46 Resp 20 10/14/19 17:46 BP 228/141 H 10/14/19 17:46 Pulse Ox 100 10/14/19 17:46 - Orders/Labs/Meds Orders: Active Orders 24 hr Category Date Time Status Admission Status [Patient Status] [ADT] Stat ADT 10/14/19 17:52 Active Admission Status [Patient Status] [ADT] Stat ADT 10/14/19 17:54 Active Antiembolic Devices [RC] PER UNIT ROUTINE Care 10/14/19 17:56 Active Blood Glucose Check, Bedside [RC] ONETIME Care 10/14/19 14:49 Active Communication Order [RC] STAT Care 10/14/19 15:48 Active Communication Order [RC] STAT Care 10/14/19 15:48 Active Communication Order [RC] STAT Care 10/14/19 15:48 Active Communication Order [RC] STAT Care 10/14/19 15:48 Active Intake and Output Strict [RC] ASDIRECTED Care 10/14/19 17:55 Active Vital Signs [RC] PER UNIT ROUTINE Care 10/14/19 17:55 Active Nothing Per Oral Diet [DIET] Diet 10/15/19 Breakfast Active HYDROmorphone [Dilaudid] Med 10/14/19 17:55 Active 1 mg IVPUSH Q4H PRN Insulin Regular, Human [NovoLIN R] 100 unit Med 10/14/19 16:00 Active Sodium Chloride 0.9% [Normal Saline] 99 ml IV TITRATE NS + KCl 20mEq/L [Normal Saline with 20 mEq KCl] 1,000 Med 10/14/19 17:00 Active ml IV ASDIRECTED Ondansetron [Zofran] Med 10/14/19 17:55 Active 4 mg IVPUSH Q4H PRN Pantoprazole [ProTONIX IV] 40 mg Med 10/14/19 18:00 Active Sodium Chloride 0.9% [Normal Saline] 10 ml IV Q24H Sodium Chloride 0.9% [Normal Saline] 1,000 ml Med 10/14/19 17:55 Active IV .Bolus Sodium Chloride 0.9% [Saline Flush] Med 10/14/19 14:48 Active 10 ml FLUSH ASDIRECTED PRN Sodium Chloride 0.9% [Saline Flush] Med 10/14/19 14:48 Active 2.5 ml FLUSH ASDIRECTED PRN Saline Lock Insert [OM.PC] Stat Oth 10/14/19 14:49 Ordered Sequential Compression Device [OM.PC] Stat Oth 10/14/19 17:55 Ordered Resuscitation Status Stat Resus Stat 10/14/19 17:55 Ordered Medication Orders Hydromorphone HCl (Dilaudid) 1 mg IVPUSH Q4H PRN PRN Reason: Pain (severe 7-10) Insulin Human Regular 100 unit (/ Sodium Chloride) 100 mls @ 7.25 mls/hr IV TITRATE MICHAEL; Protocol Last Admin: 10/14/19 16:33 Dose: 0.1 units/kg/hr, 7.25 mls/hr Potassium Chloride/Sodium Chloride (Normal Saline With 20 Meq Kcl) 1,000 mls @ 500 mls/hr IV ASDIRECTED MICHAEL Last Admin: 10/14/19 17:44 Dose: 500 mls/hr Pantoprazole Sodium 40 mg/ (Sodium Chloride) 10 mls @ 300 mls/hr IV Q24H MICHAEL Sodium Chloride (Normal Saline) 1,000 mls @ 999 mls/hr IV .Bolus ONE Stop: 10/14/19 18:55 Ondansetron HCl (Zofran) 4 mg IVPUSH Q4H PRN PRN Reason: Nausea/Vomiting Sodium Chloride (Saline Flush) 10 ml FLUSH ASDIRECTED PRN PRN Reason: Keep Vein Open Last Admin: 10/14/19 15:11 Dose: 10 ml Sodium Chloride (Saline Flush) 2.5 ml FLUSH ASDIRECTED PRN PRN Reason: Keep Vein Open Last Admin: 10/14/19 15:12 Dose: 2.5 ml Labs: Laboratory Tests 10/14/19 10/14/19 10/14/19 Range/Units 14:55 14:55 14:55 WBC 9.66 (4.0-11.0) K/uL RBC 5.18 (4.50-5.90) M/uL Hgb 11.2 L (13.0-17.0) g/dL Hct 35.1 L (38.0-50.0) % MCV 67.8 L (80.0-98.0) fL MCH 21.6 L (27.0-32.0) pg MCHC 31.9 (31.0-37.0) g/dL RDW Std Deviation 38.7 (28.0-62.0) fl RDW Coeff of Dania 16 H (11.0-15.0) % Plt Count 309 (150-400) K/uL MPV 11.40 (7.40-12.00) fL Neut % (Auto) 75.5 (48.0-80.0) % Lymph % (Auto) 16.1 (16.0-40.0) % [place] % (Auto) 6.3 (0.0-15.0) % Eos % (Auto) 1.6 (0.0-7.0) % Baso % (Auto) 0.5 (0.0-1.5) % Neut # (Auto) 7.3 H (1.4-5.7) K/uL Lymph # (Auto) 1.6 (0.6-2.4) K/uL [place] # (Auto) 0.6 (0.0-0.8) K/uL Eos # (Auto) 0.2 (0.0-0.7) K/uL Baso # (Auto) 0.1 (0.0-0.1) K/uL Nucleated RBC % 0.0 /100WBC Nucleated RBCs # 0 K/uL VBG pH (7.31-7.41) VBG pCO2 (35-45) mmHG VBG pO2 (30-40) mmHG VBG HCO3 (22-30) mEq/L VBG Total CO2 (41-51) mmol/L VBG Base Excess (-3.0-3.0) Lactate (0.20-2.00) mmol/L Sodium 131 L (136-148) mmol/L Potassium 4.7 (3.5-5.1) mmol/L Chloride 95 L (98-107) mmol/L Carbon Dioxide 25.4 (21.0-32.0) mmol/L BUN 48 H (7.0-18.0) mg/dL Creatinine 2.9 H (0.8-1.3) mg/dL Est Cr Clr Drug Dosing TNP Estimated GFR (MDRD) 25.2 ml/min Glucose 871 H* (74-106) mg/dL POC Glucose (60-110) mg/dL Calcium 8.4 L (8.5-10.1) mg/dL Total Bilirubin 0.2 (0.2-1.0) mg/dL AST 29 (15-37) IU/L ALT 33 (14-63) IU/L Alkaline Phosphatase 283 H (46-116) U/L Troponin I (0.000-0.056) ng/mL Total Protein 7.2 (6.4-8.2) g/dL Albumin 2.7 L (3.4-5.0) g/dL Globulin 4.5 H (2.6-4.0) g/dL Albumin/Globulin Ratio 0.6 L (0.9-1.6) Lipase 91 (73-393) U/L Urine Color Urine Appearance Urine pH (5.0-8.0) Ur Specific Lawn (1.001-1.035) Urine Protein (NEGATIVE) mg/dL Urine Glucose (UA) (NEGATIVE) mg/dL Urine Ketones (NEGATIVE) mg/dL Urine Occult Blood (NEGATIVE) Urine Nitrite (NEGATIVE) Urine Bilirubin (NEGATIVE) Urine Urobilinogen (<2.0) EU/dL Ur Leukocyte Esterase (NEGATIVE) Urine RBC (0-2/HPF) Urine WBC (0-5/HPF) Ur Epithelial Cells (NONE-FEW) Urine Bacteria (NEGATIVE) Urine Opiates Screen (NEGATIVE) Ur Oxycodone Screen (NEGATIVE) Urine Methadone Screen (NEGATIVE) Ur Barbiturates Screen (NEGATIVE) Ur Phencyclidine Scrn (NEGATIVE) Ur Amphetamine Screen (NEGATIVE) U Methamphetamines Scrn (NEGATIVE) U Benzodiazepines Scrn (NEGATIVE) U Cocaine Metab Screen (NEGATIVE) U Marijuana (THC) Screen (NEGATIVE) Ketones NEGATIVE (NEG) 10/14/19 10/14/19 10/14/19 Range/Units 14:55 14:55 14:55 WBC (4.0-11.0) K/uL RBC (4.50-5.90) M/uL Hgb (13.0-17.0) g/dL Hct (38.0-50.0) % MCV (80.0-98.0) fL MCH (27.0-32.0) pg MCHC (31.0-37.0) g/dL RDW Std Deviation (28.0-62.0) fl RDW Coeff of Dania (11.0-15.0) % Plt Count (150-400) K/uL MPV (7.40-12.00) fL Neut % (Auto) (48.0-80.0) % Lymph % (Auto) (16.0-40.0) % [place] % (Auto) (0.0-15.0) % Eos % (Auto) (0.0-7.0) % Baso % (Auto) (0.0-1.5) % Neut # (Auto) (1.4-5.7) K/uL Lymph # (Auto) (0.6-2.4) K/uL [place] # (Auto) (0.0-0.8) K/uL Eos # (Auto) (0.0-0.7) K/uL Baso # (Auto) (0.0-0.1) K/uL Nucleated RBC % /100WBC Nucleated RBCs # K/uL VBG pH 7.44 H (7.31-7.41) VBG pCO2 37 (35-45) mmHG VBG pO2 30 (30-40) mmHG VBG HCO3 25 (22-30) mEq/L VBG Total CO2 23 L (41-51) mmol/L VBG Base Excess 1.3 (-3.0-3.0) Lactate 1.8 (0.20-2.00) mmol/L Sodium (136-148) mmol/L Potassium (3.5-5.1) mmol/L Chloride (98-107) mmol/L Carbon Dioxide (21.0-32.0) mmol/L BUN (7.0-18.0) mg/dL Creatinine (0.8-1.3) mg/dL Est Cr Clr Drug Dosing Estimated GFR (MDRD) ml/min Glucose (74-106) mg/dL POC Glucose (60-110) mg/dL Calcium (8.5-10.1) mg/dL Total Bilirubin (0.2-1.0) mg/dL AST (15-37) IU/L ALT (14-63) IU/L Alkaline Phosphatase (46-116) U/L Troponin I < 0.050 (0.000-0.056) ng/mL Total Protein (6.4-8.2) g/dL Albumin (3.4-5.0) g/dL Globulin (2.6-4.0) g/dL Albumin/Globulin Ratio (0.9-1.6) Lipase (73-393) U/L Urine Color Urine Appearance Urine pH (5.0-8.0) Ur Specific Lawn (1.001-1.035) Urine Protein (NEGATIVE) mg/dL Urine Glucose (UA) (NEGATIVE) mg/dL Urine Ketones (NEGATIVE) mg/dL Urine Occult Blood (NEGATIVE) Urine Nitrite (NEGATIVE) Urine Bilirubin (NEGATIVE) Urine Urobilinogen (<2.0) EU/dL Ur Leukocyte Esterase (NEGATIVE) Urine RBC (0-2/HPF) Urine WBC (0-5/HPF) Ur Epithelial Cells (NONE-FEW) Urine Bacteria (NEGATIVE) Urine Opiates Screen (NEGATIVE) Ur Oxycodone Screen (NEGATIVE) Urine Methadone Screen (NEGATIVE) Ur Barbiturates Screen (NEGATIVE) Ur Phencyclidine Scrn (NEGATIVE) Ur Amphetamine Screen (NEGATIVE) U Methamphetamines Scrn (NEGATIVE) U Benzodiazepines Scrn (NEGATIVE) U Cocaine Metab Screen (NEGATIVE) U Marijuana (THC) Screen (NEGATIVE) Ketones (NEG) 10/14/19 10/14/19 10/14/19 Range/Units 15:55 15:55 16:42 WBC (4.0-11.0) K/uL RBC (4.50-5.90) M/uL Hgb (13.0-17.0) g/dL Hct (38.0-50.0) % MCV (80.0-98.0) fL MCH (27.0-32.0) pg MCHC (31.0-37.0) g/dL RDW Std Deviation (28.0-62.0) fl RDW Coeff of Dania (11.0-15.0) % Plt Count (150-400) K/uL MPV (7.40-12.00) fL Neut % (Auto) (48.0-80.0) % Lymph % (Auto) (16.0-40.0) % [place] % (Auto) (0.0-15.0) % Eos % (Auto) (0.0-7.0) % Baso % (Auto) (0.0-1.5) % Neut # (Auto) (1.4-5.7) K/uL Lymph # (Auto) (0.6-2.4) K/uL [place] # (Auto) (0.0-0.8) K/uL Eos # (Auto) (0.0-0.7) K/uL Baso # (Auto) (0.0-0.1) K/uL Nucleated RBC % /100WBC Nucleated RBCs # K/uL VBG pH (7.31-7.41) VBG pCO2 (35-45) mmHG VBG pO2 (30-40) mmHG VBG HCO3 (22-30) mEq/L VBG Total CO2 (41-51) mmol/L VBG Base Excess (-3.0-3.0) Lactate (0.20-2.00) mmol/L Sodium (136-148) mmol/L Potassium (3.5-5.1) mmol/L Chloride (98-107) mmol/L Carbon Dioxide (21.0-32.0) mmol/L BUN (7.0-18.0) mg/dL Creatinine (0.8-1.3) mg/dL Est Cr Clr Drug Dosing Estimated GFR (MDRD) ml/min Glucose (74-106) mg/dL POC Glucose > 500 H (60-110) mg/dL Calcium (8.5-10.1) mg/dL Total Bilirubin (0.2-1.0) mg/dL AST (15-37) IU/L ALT (14-63) IU/L Alkaline Phosphatase (46-116) U/L Troponin I (0.000-0.056) ng/mL Total Protein (6.4-8.2) g/dL Albumin (3.4-5.0) g/dL Globulin (2.6-4.0) g/dL Albumin/Globulin Ratio (0.9-1.6) Lipase (73-393) U/L Urine Color YELLOW Urine Appearance HAZY Urine pH 7.5 (5.0-8.0) Ur Specific Lawn 1.020 (1.001-1.035) Urine Protein 100 H (NEGATIVE) mg/dL Urine Glucose (UA) >=1000 (NEGATIVE) mg/dL Urine Ketones NEGATIVE (NEGATIVE) mg/dL Urine Occult Blood TRACE-INTACT H (NEGATIVE) Urine Nitrite NEGATIVE (NEGATIVE) Urine Bilirubin NEGATIVE (NEGATIVE) Urine Urobilinogen 0.2 (<2.0) EU/dL Ur Leukocyte Esterase NEGATIVE (NEGATIVE) Urine RBC 0-3 (0-2/HPF) Urine WBC NONE SEEN (0-5/HPF) Ur Epithelial Cells RARE (NONE-FEW) Urine Bacteria NOT SEEN (NEGATIVE) Urine Opiates Screen NEGATIVE (NEGATIVE) Ur Oxycodone Screen NEGATIVE (NEGATIVE) Urine Methadone Screen NEGATIVE (NEGATIVE) Ur Barbiturates Screen NEGATIVE (NEGATIVE) Ur Phencyclidine Scrn NEGATIVE (NEGATIVE) Ur Amphetamine Screen NEGATIVE (NEGATIVE) U Methamphetamines Scrn NEGATIVE (NEGATIVE) U Benzodiazepines Scrn NEGATIVE (NEGATIVE) U Cocaine Metab Screen NEGATIVE (NEGATIVE) U Marijuana (THC) Screen POSITIVE (NEGATIVE) Ketones (NEG) 10/14/19 Range/Units 17:31 WBC (4.0-11.0) K/uL RBC (4.50-5.90) M/uL Hgb (13.0-17.0) g/dL Hct (38.0-50.0) % MCV (80.0-98.0) fL MCH (27.0-32.0) pg MCHC (31.0-37.0) g/dL RDW Std Deviation (28.0-62.0) fl RDW Coeff of Dania (11.0-15.0) % Plt Count (150-400) K/uL MPV (7.40-12.00) fL Neut % (Auto) (48.0-80.0) % Lymph % (Auto) (16.0-40.0) % [place] % (Auto) (0.0-15.0) % Eos % (Auto) (0.0-7.0) % Baso % (Auto) (0.0-1.5) % Neut # (Auto) (1.4-5.7) K/uL Lymph # (Auto) (0.6-2.4) K/uL [place] # (Auto) (0.0-0.8) K/uL Eos # (Auto) (0.0-0.7) K/uL Baso # (Auto) (0.0-0.1) K/uL Nucleated RBC % /100WBC Nucleated RBCs # K/uL VBG pH (7.31-7.41) VBG pCO2 (35-45) mmHG VBG pO2 (30-40) mmHG VBG HCO3 (22-30) mEq/L VBG Total CO2 (41-51) mmol/L VBG Base Excess (-3.0-3.0) Lactate (0.20-2.00) mmol/L Sodium (136-148) mmol/L Potassium (3.5-5.1) mmol/L Chloride (98-107) mmol/L Carbon Dioxide (21.0-32.0) mmol/L BUN (7.0-18.0) mg/dL Creatinine (0.8-1.3) mg/dL Est Cr Clr Drug Dosing Estimated GFR (MDRD) ml/min Glucose (74-106) mg/dL POC Glucose > 500 H (60-110) mg/dL Calcium (8.5-10.1) mg/dL Total Bilirubin (0.2-1.0) mg/dL AST (15-37) IU/L ALT (14-63) IU/L Alkaline Phosphatase (46-116) U/L Troponin I (0.000-0.056) ng/mL Total Protein (6.4-8.2) g/dL Albumin (3.4-5.0) g/dL Globulin (2.6-4.0) g/dL Albumin/Globulin Ratio (0.9-1.6) Lipase (73-393) U/L Urine Color Urine Appearance Urine pH (5.0-8.0) Ur Specific Lawn (1.001-1.035) Urine Protein (NEGATIVE) mg/dL Urine Glucose (UA) (NEGATIVE) mg/dL Urine Ketones (NEGATIVE) mg/dL Urine Occult Blood (NEGATIVE) Urine Nitrite (NEGATIVE) Urine Bilirubin (NEGATIVE) Urine Urobilinogen (<2.0) EU/dL Ur Leukocyte Esterase (NEGATIVE) Urine RBC (0-2/HPF) Urine WBC (0-5/HPF) Ur Epithelial Cells (NONE-FEW) Urine Bacteria (NEGATIVE) Urine Opiates Screen (NEGATIVE) Ur Oxycodone Screen (NEGATIVE) Urine Methadone Screen (NEGATIVE) Ur Barbiturates Screen (NEGATIVE) Ur Phencyclidine Scrn (NEGATIVE) Ur Amphetamine Screen (NEGATIVE) U Methamphetamines Scrn (NEGATIVE) U Benzodiazepines Scrn (NEGATIVE) U Cocaine Metab Screen (NEGATIVE) U Marijuana (THC) Screen (NEGATIVE) Ketones (NEG) Meds: Medications Generic Name Dose Route Start Last Admin Trade Name Freq PRN Reason Stop Dose Admin Hydromorphone HCl 1 mg 10/14/19 17:55 Dilaudid IVPUSH Q4H PRN Pain (severe 7-10) Insulin Human Regular 100 unit 100 mls @ 7.25 mls/hr 10/14/19 16:00 10/14/19 16:33 / Sodium Chloride IV 0.1 units/kg/hr TITRATE MICHAEL 7.25 mls/hr Administration Protocol 0.1 UNITS/KG/HR Potassium Chloride/Sodium Chloride 1,000 mls @ 500 mls/hr 10/14/19 17:00 17:44 Normal Saline With 20 Meq Kcl IV 500 mls/hr ASDIRECTED MICHAEL Administration Pantoprazole Sodium 40 mg/ 10 mls @ 300 mls/hr 10/14/19 18:00 Sodium Chloride IV Q24H MICHAEL Sodium Chloride 1,000 mls @ 999 mls/hr 10/14/19 17:55 Normal Saline IV 10/14/19 18:55 .Bolus ONE Ondansetron HCl 4 mg 10/14/19 17:55 Zofran IVPUSH Q4H PRN Nausea/Vomiting Sodium Chloride 10 ml 10/14/19 14:48 10/14/19 15:11 Saline Flush FLUSH 10 ml ASDIRECTED PRN Administration Keep Vein Open Sodium Chloride 2.5 ml 10/14/19 14:48 10/14/19 15:12 Saline Flush FLUSH 2.5 ml ASDIRECTED PRN Administration Keep Vein Open Discontinued Medications Generic Name Dose Route Start Last Admin Trade Name Freq PRN Reason Stop Dose Admin Haloperidol 5 mg 10/14/19 18:03 10/14/19 18:07 Haldol PO 10/14/19 18:04 Not Given ONETIME ONE Haloperidol Lactate 1 mg 10/14/19 17:55 Haldol IM 10/14/19 17:56 ONETIME ONE Haloperidol Lactate 5 mg 10/14/19 18:05 10/14/19 18:07 Haldol IM 10/14/19 18:06 5 mg ONETIME ONE Administration Hydralazine HCl 20 mg 10/14/19 17:33 10/14/19 17:44 Apresoline IVPUSH 10/14/19 17:34 20 mg ONETIME ONE Administration Hydromorphone HCl 1 mg 10/14/19 15:02 10/14/19 15:11 Dilaudid IVPUSH 10/14/19 15:03 1 mg ONETIME ONE Administration Hydromorphone HCl 1 mg 10/14/19 18:11 Dilaudid IVPUSH 10/14/19 18:12 ONETIME ONE Sodium Chloride 1,000 mls @ 999 mls/hr 10/14/19 14:48 10/14/19 15:11 Normal Saline IV 10/14/19 15:48 999 mls/hr BOLUS ONE Administration Sodium Chloride 1,000 mls @ 999 mls/hr 10/14/19 16:55 10/14/19 17:45 Normal Saline IV 10/14/19 17:55 999 mls/hr .Bolus ONE Administration Ondansetron HCl 4 mg 10/14/19 14:48 10/14/19 15:11 Zofran IVPUSH 10/14/19 14:49 4 mg ONETIME ONE Administration Departure - Departure Time of Disposition: 18:13 Disposition: Refer to Observation Condition: Fair Clinical Impression: Hyperglycemia due to type 1 diabetes mellitus, Vomiting Abdominal pain Qualifiers: Abdominal location: upper abdomen, unspecified Qualified Code(s): R10.10 - Upper abdominal pain, unspecified Hypertension Qualifiers: Hypertension type: essential hypertension Qualified Code(s): I10 - Essential ( primary) hypertension - Discharge Information Referrals: PCP,None [Primary Care Provider] - Forms: ED Department Discharge Sepsis Event Note - Focused Exam Vital Signs: Vital Signs Temp Pulse Resp BP Pulse Ox 10/14/19 17:46 104 H 20 228/141 H 100 10/14/19 16:44 100 20 239/152 H 94 L 10/14/19 15:04 96.8 F 109 H 24 H 225/129 H 100 Date Exam was Performed: 10/14/19 Time Exam was Performed: 18:13 - My Orders Last 24 Hours: My Active Orders 10/14/19 14:48 Sodium Chloride 0.9% [Saline Flush] 10 ml FLUSH ASDIRECTED PRN Sodium Chloride 0.9% [Saline Flush] 2.5 ml FLUSH ASDIRECTED PRN 10/14/19 14:49 Blood Glucose Check, Bedside [RC] ONETIME Saline Lock Insert [OM.PC] Stat 10/14/19 15:48 Communication Order [RC] STAT Communication Order [RC] STAT Communication Order [RC] STAT Communication Order [RC] STAT 10/14/19 16:00 Insulin Regular, Human [NovoLIN R] 100 unit Sodium Chloride 0.9% [Normal Saline] 99 ml IV TITRATE 10/14/19 17:00 NS + KCl 20mEq/L [Normal Saline with 20 mEq KCl] 1,000 ml IV ASDIRECTED 10/14/19 17:54 Admission Status [Patient Status] [ADT] Stat - Assessment/Plan Last 24 Hours: My Active Orders 10/14/19 14:48 Sodium Chloride 0.9% [Saline Flush] 10 ml FLUSH ASDIRECTED PRN Sodium Chloride 0.9% [Saline Flush] 2.5 ml FLUSH ASDIRECTED PRN 10/14/19 14:49 Blood Glucose Check, Bedside [RC] ONETIME Saline Lock Insert [OM.PC] Stat 10/14/19 15:48 Communication Order [RC] STAT Communication Order [RC] STAT Communication Order [RC] STAT Communication Order [RC] STAT 10/14/19 16:00 Insulin Regular, Human [NovoLIN R] 100 unit Sodium Chloride 0.9% [Normal Saline] 99 ml IV TITRATE 10/14/19 17:00 NS + KCl 20mEq/L [Normal Saline with 20 mEq KCl] 1,000 ml IV ASDIRECTED 10/14/19 17:54 Admission Status [Patient Status] [ADT] Stat
[2019-10-14 15:39] LABS: BLOOD UREA NITROGEN,BUN 48 mg/dL (7.0-18.0); CARBON DIOXIDE,CO2 25.4 mmol/L (21.0-32.0); CHLORIDE,CL 95 mmol/L (98-107); LIPASE 91 U/L (73-393); POTASSIUM,K 4.7 mmol/L (3.5-5.1); SODIUM,NA 131 mmol/L (136-148)
[2019-10-14 15:43] LABS: GLUCOSE RANDOM 871 mg/dL (74-106)
--- NOTE | 2019-10-14 16:05 | CR ---
Chest: Portable view of the chest was obtained. Comparison: Prior chest x-ray of 09/29/19. Heart size and mediastinum are normal. Lungs are clear. Bony structures are unremarkable. Impression: 1. Nothing acute is seen on portable chest x-ray. Diagnostic code #1 This report was dictated in [place] Standard Time
--- NOTE | 2019-10-14 16:34 | CT ---
CT abdomen and pelvis Technique: Multiple axial sections were obtained from above the dome of the diaphragm inferiorly through the pubic symphysis. Intravenous contrast and oral contrast not utilized. Lack of contrast diminishes details of this exam. Comparison: Prior CT abdomen and pelvis study of 10/08/19. Findings: Small stable nodule within the right lung base is seen measuring about 4 mm. Liver contains no focal parenchymal abnormality. Spleen appears within normal limits. Adrenal glands show no discrete nodule. Kidneys show no hydronephrosis or abnormal calcifications. Renal outlines are slightly hazy as compared to the prior study. Please correlate if patient has any symptoms to suggest pyelonephritis. Gallbladder contains no calcified gallstones. Aorta shows no aneurysm. No retroperitoneal adenopathy is seen. No pelvic mass or adenopathy is seen. Bladder wall is slightly thickened as an interval change from previous exam. Possible cystitis is present. Appendix is not definitely visualized without contrast. Bone window settings were reviewed which appear within normal limits for the patient's age. Impression: 1. Margins of the kidney are slightly hazy raising the possibility of pyelonephritis. In addition, the bladder wall is mildly thickened possibly due to cystitis. Please correlate if patient has any correlating symptoms. 2. Small nodule within the right lung base. 3. No additional abnormality is appreciated on noncontrast CT study of the abdomen and pelvis. Diagnostic code #3 This report was dictated in [place] Standard Time
[2019-10-14] MEDS ORDERED: NS + KCl 20mEq/L 1,000 ML IV SCH (17:00)
[2019-10-14] MEDS ORDERED: hydrALAZINE 20 MG/ML SDV IVPUSH ONE (17:33)
[2019-10-14] MEDS ORDERED: Haloperidol Lactate 5 MG/ML SDV IM ONE ×3 (17:55→19:15)
[2019-10-14] MEDS ORDERED: HYDROmorphone 2 MG/ML Syringe IVPUSH PRN (17:55)
[2019-10-14] MEDS ORDERED: Ondansetron 4 MG/2 ML SDV IVPUSH PRN (17:55)
[2019-10-14] MEDS ORDERED: Haloperidol 5 MG Tab PO ONE (18:03)
--- NOTE | 2019-10-14 18:05 | PCM.HP.2 ---
<Devi Covarrubias - Last Filed: 10/14/19 18:58> H&P History of Present Illness - General Date of Service: 10/14/19 Admit Problem/Dx: Admission Diagnosis/Problem Admission Diagnosis/Problem Hyperglycemia - History of Present Illness Initial Comments - Free Text/Narative: The patient is a 34 year old male who past medical history of diabetes, gastroparesis, chronic abdominal pain, cyclic vomiting, and HTN who presented to the ER with diffuse abdominal pain, hematemesis, and diarrhea. Denies fever/ chills, chest pain, shortness of breath, black/bloody stools. This is his third admission in the past 3 weeks for the same complaints. Reports he is taking his insulin and anti-hypertensive but can't tell me what he takes or how much. Prior to interview patient was resting comfortably in the bed, when I asked how he was doing, he started wailing, full body shaking, and stating he was in so much pain. In the ER, work up revealed chronic anemia but up from baseline with hemoglobin at 11.2, normal lactate, no white count. He was hyperglycemia with glucose of 871 but he is not in DKA. Was started on an insulin drip and given 2 boluses of IVF. Was then started on IVF with potassium. Troponin was negative, lipase was negative. CXR was negative, EKG showed sinus tachy but no ST elevation. CT ab/pelvis showed haziness around kidney with questionable pyelonephritis but no urinary symptoms and no sign of infection on UA. UDS was positive for marijuana. IN the ER his BP was elevated at 239/152, he was given one time dose of hydralazine 20 mg IV. He was also given a dose of Dilaudid and Zofran. Everywhere Pain Score (Numeric/FACES): 10 - Related Data Allergies/Adverse Reactions: Allergies Allergy/AdvReac Type Severity Reaction Status Date / Time shrimp Allergy Severe Swelling Verified 10/08/19 23:51 iodine Allergy Unknown Anaphylactic Verified 10/08/19 23:51 Shock Penicillins Allergy Unknown Anaphylactic Verified 10/08/19 23:51 Shock shellfish derived Allergy Anaphylactic Verified 10/08/19 23:51 Shock gluten Allergy Unknown Muscle Uncoded 10/08/19 23:51 Aches Home Medications: Home Meds Doxazosin [Cardura] 4 mg PO BEDTIME 09/29/19 [History] Metoprolol Succinate 200 mg PO DAILY 09/29/19 [History] Torsemide 20 mg PO DAILY 09/29/19 [History] atorvaSTATin [Lipitor] 80 mg PO BEDTIME 09/29/19 [History] hydrALAZINE [Apresoline] 25 mg PO TID 09/29/19 [History] Insulin Aspart [NovoLOG] 0 unit SUBCUT .UP TO 60 UN DAILY 09/30/19 [History] Metoclopramide [Reglan] 5 mg PO TIDAC #90 tablet 10/10/19 [Rx] Pantoprazole [ProTONIX] 40 mg PO DAILY #30 tab.cr 10/10/19 [Rx] Insulin Glarg,Human.Rec.Analog [Lantus] 35 unit SUBCUT BEDTIME 10/14/19 [History ] Past Medical History - Past Health History Medical/Surgical History: Denies Medical/Surgical History HEENT History: Reports: Impaired Vision Other HEENT History: blind right eye Cardiovascular History: Reports: Hypertension Respiratory History: Reports: None Gastrointestinal History: Reports: Gastritis, GERD, Hiatal Hernia, Other (See Below) Other Gastrointestinal History: h/o gastric ulcers, h/o hiatal hernia; gastroparesis Genitourinary History: Reports: Chronic Renal Insuffiency, Diabetic Nephropathy Musculoskeletal History: Reports: Amputation Neurological History: Reports: Neuropathy, Peripheral Other Neuro History: stroke Psychiatric History: Reports: Anxiety Endocrine/Metabolic History: Reports: Diabetes, Type I Other Endocrine/Metabolic History: brittle diabetic. History of hyperkalemia and DKA Insulin Pump Model and Hand I Tube Bender: None Hematologic History: Reports: Anemia Immunologic History: Reports: None Oncologic (Cancer) History: Reports: None Dermatologic History: Reports: Other (See Below) Other Dermatologic History: diabetic foot ulcers - Infectious Disease History Infectious Disease History: Reports: Chicken Pox Other Infectious Disease History: 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 - Past Surgical History Head Surgeries/Procedures: Reports: None Musculoskeletal Surgical History: Reports: Other (See Below) Other Musculoskeletal Surgeries/Procedures:: right BKA Social & Family History - Family History Family Medical History: Noncontributory Cardiac: Reports: High Cholesterol, Hypertension OBGYN: Reports: Neurological: Reports: None Psychiatric: Reports: Anxiety - Tobacco Use Smoking Status *Q: Never Smoker - Caffeine Use Caffeine Use: Reports: None Other Caffeine Use: daily Caffeine Use Comment: patient is uncooperated - Living Situation & Occupation Living situation: Reports: Single Occupation: Employed (Currently unemployed.) H&P Review of Systems - Review of Systems: Review Of Systems: See Below General: Reports: No Symptoms HEENT: Reports: No Symptoms Pulmonary: Reports: No Symptoms Cardiovascular: Reports: Blood Pressure Problem. Denies: Chest Pain, Edema Gastrointestinal: Reports: Abdominal Pain, Hematemesis. Denies: Black Stool, Bloody Stool Genitourinary: Reports: No Symptoms Musculoskeletal: Reports: No Symptoms Skin: Reports: No Symptoms Psychiatric: Reports: Agitation Neurological: Reports: No Symptoms Hematologic/Lymphatic: Reports: No Symptoms, Anemia Immunologic: Reports: No Symptoms Exam - Exam Exam: See Below - Vital Signs Vital Signs: Last Vital Signs Temp 96.8 F 10/14/19 15:04 Pulse 104 H 10/14/19 17:46 Resp 20 10/14/19 17:46 BP 228/141 H 10/14/19 17:46 Pulse Ox 100 10/14/19 17:46 Weight: 72.5 kg - Exam General: Alert, Oriented. No: Cooperative HEENT: Conjunctiva Clear, EOMI, Mucosa Moist & [place], Posterior Pharynx Clear, Pupils Equal, Pupils Reactive Neck: Supple Lungs: Clear to Auscultation, Normal Respiratory Effort Cardiovascular: Regular Rate, Regular Rhythm GI/Abdominal Exam: Normal Bowel Sounds, Soft, No Distention, Tender Extremities: No Pedal Edema Skin: Warm, Dry, Intact Psychiatric: Alert, Agitated - Patient Data Lab Results Last 24 hrs: Laboratory Results - last 24 hr 10/14/19 10/14/19 10/14/19 Range/Units 14:55 14:55 14:55 WBC 9.66 (4.0-11.0) K/uL RBC 5.18 (4.50-5.90) M/uL Hgb 11.2 L (13.0-17.0) g/dL Hct 35.1 L (38.0-50.0) % MCV 67.8 L (80.0-98.0) fL MCH 21.6 L (27.0-32.0) pg MCHC 31.9 (31.0-37.0) g/dL RDW Std Deviation 38.7 (28.0-62.0) fl RDW Coeff of Dania 16 H (11.0-15.0) % Plt Count 309 (150-400) K/uL MPV 11.40 (7.40-12.00) fL Neut % (Auto) 75.5 (48.0-80.0) % Lymph % (Auto) 16.1 (16.0-40.0) % Rich % (Auto) 6.3 (0.0-15.0) % Eos % (Auto) 1.6 (0.0-7.0) % Baso % (Auto) 0.5 (0.0-1.5) % Neut # (Auto) 7.3 H (1.4-5.7) K/uL Lymph # (Auto) 1.6 (0.6-2.4) K/uL Rich # (Auto) 0.6 (0.0-0.8) K/uL Eos # (Auto) 0.2 (0.0-0.7) K/uL Baso # (Auto) 0.1 (0.0-0.1) K/uL Nucleated RBC % 0.0 /100WBC Nucleated RBCs # 0 K/uL VBG pH (7.31-7.41) VBG pCO2 (35-45) mmHG VBG pO2 (30-40) mmHG VBG HCO3 (22-30) mEq/L VBG Total CO2 (41-51) mmol/L VBG Base Excess (-3.0-3.0) Lactate (0.20-2.00) mmol/L Sodium 131 L (136-148) mmol/L Potassium 4.7 (3.5-5.1) mmol/L Chloride 95 L (98-107) mmol/L Carbon Dioxide 25.4 (21.0-32.0) mmol/L BUN 48 H (7.0-18.0) mg/dL Creatinine 2.9 H (0.8-1.3) mg/dL Est Cr Clr Drug Dosing TNP Estimated GFR (MDRD) 25.2 ml/min Glucose 871 H* (74-106) mg/dL POC Glucose (60-110) mg/dL Calcium 8.4 L (8.5-10.1) mg/dL Total Bilirubin 0.2 (0.2-1.0) mg/dL AST 29 (15-37) IU/L ALT 33 (14-63) IU/L Alkaline Phosphatase 283 H (46-116) U/L Troponin I (0.000-0.056) ng/mL Total Protein 7.2 (6.4-8.2) g/dL Albumin 2.7 L (3.4-5.0) g/dL Globulin 4.5 H (2.6-4.0) g/dL Albumin/Globulin Ratio 0.6 L (0.9-1.6) Lipase 91 (73-393) U/L Urine Color Urine Appearance Urine pH (5.0-8.0) Ur Specific Pateros (1.001-1.035) Urine Protein (NEGATIVE) mg/dL Urine Glucose (UA) (NEGATIVE) mg/dL Urine Ketones (NEGATIVE) mg/dL Urine Occult Blood (NEGATIVE) Urine Nitrite (NEGATIVE) Urine Bilirubin (NEGATIVE) Urine Urobilinogen (<2.0) EU/dL Ur Leukocyte Esterase (NEGATIVE) Urine RBC (0-2/HPF) Urine WBC (0-5/HPF) Ur Epithelial Cells (NONE-FEW) Urine Bacteria (NEGATIVE) Urine Opiates Screen (NEGATIVE) Ur Oxycodone Screen (NEGATIVE) Urine Methadone Screen (NEGATIVE) Ur Barbiturates Screen (NEGATIVE) Ur Phencyclidine Scrn (NEGATIVE) Ur Amphetamine Screen (NEGATIVE) U Methamphetamines Scrn (NEGATIVE) U Benzodiazepines Scrn (NEGATIVE) U Cocaine Metab Screen (NEGATIVE) U Marijuana (THC) Screen (NEGATIVE) Ketones NEGATIVE (NEG) 10/14/19 10/14/19 10/14/19 Range/Units 14:55 14:55 14:55 WBC (4.0-11.0) K/uL RBC (4.50-5.90) M/uL Hgb (13.0-17.0) g/dL Hct (38.0-50.0) % MCV (80.0-98.0) fL MCH (27.0-32.0) pg MCHC (31.0-37.0) g/dL RDW Std Deviation (28.0-62.0) fl RDW Coeff of Dania (11.0-15.0) % Plt Count (150-400) K/uL MPV (7.40-12.00) fL Neut % (Auto) (48.0-80.0) % Lymph % (Auto) (16.0-40.0) % Rich % (Auto) (0.0-15.0) % Eos % (Auto) (0.0-7.0) % Baso % (Auto) (0.0-1.5) % Neut # (Auto) (1.4-5.7) K/uL Lymph # (Auto) (0.6-2.4) K/uL Rich # (Auto) (0.0-0.8) K/uL Eos # (Auto) (0.0-0.7) K/uL Baso # (Auto) (0.0-0.1) K/uL Nucleated RBC % /100WBC Nucleated RBCs # K/uL VBG pH 7.44 H (7.31-7.41) VBG pCO2 37 (35-45) mmHG VBG pO2 30 (30-40) mmHG VBG HCO3 25 (22-30) mEq/L VBG Total CO2 23 L (41-51) mmol/L VBG Base Excess 1.3 (-3.0-3.0) Lactate 1.8 (0.20-2.00) mmol/L Sodium (136-148) mmol/L Potassium (3.5-5.1) mmol/L Chloride (98-107) mmol/L Carbon Dioxide (21.0-32.0) mmol/L BUN (7.0-18.0) mg/dL Creatinine (0.8-1.3) mg/dL Est Cr Clr Drug Dosing Estimated GFR (MDRD) ml/min Glucose (74-106) mg/dL POC Glucose (60-110) mg/dL Calcium (8.5-10.1) mg/dL Total Bilirubin (0.2-1.0) mg/dL AST (15-37) IU/L ALT (14-63) IU/L Alkaline Phosphatase (46-116) U/L Troponin I < 0.050 (0.000-0.056) ng/mL Total Protein (6.4-8.2) g/dL Albumin (3.4-5.0) g/dL Globulin (2.6-4.0) g/dL Albumin/Globulin Ratio (0.9-1.6) Lipase (73-393) U/L Urine Color Urine Appearance Urine pH (5.0-8.0) Ur Specific [place] (1.001-1.035) Urine Protein (NEGATIVE) mg/dL Urine Glucose (UA) (NEGATIVE) mg/dL Urine Ketones (NEGATIVE) mg/dL Urine Occult Blood (NEGATIVE) Urine Nitrite (NEGATIVE) Urine Bilirubin (NEGATIVE) Urine Urobilinogen (<2.0) EU/dL Ur Leukocyte Esterase (NEGATIVE) Urine RBC (0-2/HPF) Urine WBC (0-5/HPF) Ur Epithelial Cells (NONE-FEW) Urine Bacteria (NEGATIVE) Urine Opiates Screen (NEGATIVE) Ur Oxycodone Screen (NEGATIVE) Urine Methadone Screen (NEGATIVE) Ur Barbiturates Screen (NEGATIVE) Ur Phencyclidine Scrn (NEGATIVE) Ur Amphetamine Screen (NEGATIVE) U Methamphetamines Scrn (NEGATIVE) U Benzodiazepines Scrn (NEGATIVE) U Cocaine Metab Screen (NEGATIVE) U Marijuana (THC) Screen (NEGATIVE) Ketones (NEG) 10/14/19 10/14/19 10/14/19 Range/Units 15:55 15:55 16:42 WBC (4.0-11.0) K/uL RBC (4.50-5.90) M/uL Hgb (13.0-17.0) g/dL Hct (38.0-50.0) % MCV (80.0-98.0) fL MCH (27.0-32.0) pg MCHC (31.0-37.0) g/dL RDW Std Deviation (28.0-62.0) fl RDW Coeff of Dania (11.0-15.0) % Plt Count (150-400) K/uL MPV (7.40-12.00) fL Neut % (Auto) (48.0-80.0) % Lymph % (Auto) (16.0-40.0) % Rich % (Auto) (0.0-15.0) % Eos % (Auto) (0.0-7.0) % Baso % (Auto) (0.0-1.5) % Neut # (Auto) (1.4-5.7) K/uL Lymph # (Auto) (0.6-2.4) K/uL Rich # (Auto) (0.0-0.8) K/uL Eos # (Auto) (0.0-0.7) K/uL Baso # (Auto) (0.0-0.1) K/uL Nucleated RBC % /100WBC Nucleated RBCs # K/uL VBG pH (7.31-7.41) VBG pCO2 (35-45) mmHG VBG pO2 (30-40) mmHG VBG HCO3 (22-30) mEq/L VBG Total CO2 (41-51) mmol/L VBG Base Excess (-3.0-3.0) Lactate (0.20-2.00) mmol/L Sodium (136-148) mmol/L Potassium (3.5-5.1) mmol/L Chloride (98-107) mmol/L Carbon Dioxide (21.0-32.0) mmol/L BUN (7.0-18.0) mg/dL Creatinine (0.8-1.3) mg/dL Est Cr Clr Drug Dosing Estimated GFR (MDRD) ml/min Glucose (74-106) mg/dL POC Glucose > 500 H (60-110) mg/dL Calcium (8.5-10.1) mg/dL Total Bilirubin (0.2-1.0) mg/dL AST (15-37) IU/L ALT (14-63) IU/L Alkaline Phosphatase (46-116) U/L Troponin I (0.000-0.056) ng/mL Total Protein (6.4-8.2) g/dL Albumin (3.4-5.0) g/dL Globulin (2.6-4.0) g/dL Albumin/Globulin Ratio (0.9-1.6) Lipase (73-393) U/L Urine Color YELLOW Urine Appearance HAZY Urine pH 7.5 (5.0-8.0) Ur Specific [place] 1.020 (1.001-1.035) Urine Protein 100 H (NEGATIVE) mg/dL Urine Glucose (UA) >=1000 (NEGATIVE) mg/dL Urine Ketones NEGATIVE (NEGATIVE) mg/dL Urine Occult Blood TRACE-INTACT H (NEGATIVE) Urine Nitrite NEGATIVE (NEGATIVE) Urine Bilirubin NEGATIVE (NEGATIVE) Urine Urobilinogen 0.2 (<2.0) EU/dL Ur Leukocyte Esterase NEGATIVE (NEGATIVE) Urine RBC 0-3 (0-2/HPF) Urine WBC NONE SEEN (0-5/HPF) Ur Epithelial Cells RARE (NONE-FEW) Urine Bacteria NOT SEEN (NEGATIVE) Urine Opiates Screen NEGATIVE (NEGATIVE) Ur Oxycodone Screen NEGATIVE (NEGATIVE) Urine Methadone Screen NEGATIVE (NEGATIVE) Ur Barbiturates Screen NEGATIVE (NEGATIVE) Ur Phencyclidine Scrn NEGATIVE (NEGATIVE) Ur Amphetamine Screen NEGATIVE (NEGATIVE) U Methamphetamines Scrn NEGATIVE (NEGATIVE) U Benzodiazepines Scrn NEGATIVE (NEGATIVE) U Cocaine Metab Screen NEGATIVE (NEGATIVE) U Marijuana (THC) Screen POSITIVE (NEGATIVE) Ketones (NEG) 10/14/19 Range/Units 17:31 WBC (4.0-11.0) K/uL RBC (4.50-5.90) M/uL Hgb (13.0-17.0) g/dL Hct (38.0-50.0) % MCV (80.0-98.0) fL MCH (27.0-32.0) pg MCHC (31.0-37.0) g/dL RDW Std Deviation (28.0-62.0) fl RDW Coeff of Dania (11.0-15.0) % Plt Count (150-400) K/uL MPV (7.40-12.00) fL Neut % (Auto) (48.0-80.0) % Lymph % (Auto) (16.0-40.0) % Rich % (Auto) (0.0-15.0) % Eos % (Auto) (0.0-7.0) % Baso % (Auto) (0.0-1.5) % Neut # (Auto) (1.4-5.7) K/uL Lymph # (Auto) (0.6-2.4) K/uL Rich # (Auto) (0.0-0.8) K/uL Eos # (Auto) (0.0-0.7) K/uL Baso # (Auto) (0.0-0.1) K/uL Nucleated RBC % /100WBC Nucleated RBCs # K/uL VBG pH (7.31-7.41) VBG pCO2 (35-45) mmHG VBG pO2 (30-40) mmHG VBG HCO3 (22-30) mEq/L VBG Total CO2 (41-51) mmol/L VBG Base Excess (-3.0-3.0) Lactate (0.20-2.00) mmol/L Sodium (136-148) mmol/L Potassium (3.5-5.1) mmol/L Chloride (98-107) mmol/L Carbon Dioxide (21.0-32.0) mmol/L BUN (7.0-18.0) mg/dL Creatinine (0.8-1.3) mg/dL Est Cr Clr Drug Dosing Estimated GFR (MDRD) ml/min Glucose (74-106) mg/dL POC Glucose > 500 H (60-110) mg/dL Calcium (8.5-10.1) mg/dL Total Bilirubin (0.2-1.0) mg/dL AST (15-37) IU/L ALT (14-63) IU/L Alkaline Phosphatase (46-116) U/L Troponin I (0.000-0.056) ng/mL Total Protein (6.4-8.2) g/dL Albumin (3.4-5.0) g/dL Globulin (2.6-4.0) g/dL Albumin/Globulin Ratio (0.9-1.6) Lipase (73-393) U/L Urine Color Urine Appearance Urine pH (5.0-8.0) Ur Specific [place] (1.001-1.035) Urine Protein (NEGATIVE) mg/dL Urine Glucose (UA) (NEGATIVE) mg/dL Urine Ketones (NEGATIVE) mg/dL Urine Occult Blood (NEGATIVE) Urine Nitrite (NEGATIVE) Urine Bilirubin (NEGATIVE) Urine Urobilinogen (<2.0) EU/dL Ur Leukocyte Esterase (NEGATIVE) Urine RBC (0-2/HPF) Urine WBC (0-5/HPF) Ur Epithelial Cells (NONE-FEW) Urine Bacteria (NEGATIVE) Urine Opiates Screen (NEGATIVE) Ur Oxycodone Screen (NEGATIVE) Urine Methadone Screen (NEGATIVE) Ur Barbiturates Screen (NEGATIVE) Ur Phencyclidine Scrn (NEGATIVE) Ur Amphetamine Screen (NEGATIVE) U Methamphetamines Scrn (NEGATIVE) U Benzodiazepines Scrn (NEGATIVE) U Cocaine Metab Screen (NEGATIVE) U Marijuana (THC) Screen (NEGATIVE) Ketones (NEG) Result Diagrams: 10/14/19 14:55 10/14/19 14:55 Sepsis Event Note - Evaluation Sepsis Screening Result: No Definite Risk - Focused Exam Vital Signs: Vital Signs Temp Pulse Resp BP Pulse Ox 10/14/19 17:46 104 H 20 228/141 H 100 10/14/19 16:44 100 20 239/152 H 94 L 10/14/19 15:04 96.8 F 109 H 24 H 225/129 H 100 Date Exam was Performed: 10/14/19 Time Exam was Performed: 18:58 Problem List Initiated/Reviewed/Updated: Yes Orders Last 24hrs: Active Orders 24 hr Category Date Time Status Admission Status [Patient Status] [ADT] Stat ADT 10/14/19 17:52 Ordered Admission Status [Patient Status] [ADT] Stat ADT 10/14/19 17:54 Active Antiembolic Devices [RC] PER UNIT ROUTINE Care 10/14/19 17:56 Ordered Blood Glucose Check, Bedside [RC] ONETIME Care 10/14/19 14:49 Active Communication Order [RC] STAT Care 10/14/19 15:48 Active Communication Order [RC] STAT Care 10/14/19 15:48 Active Communication Order [RC] STAT Care 10/14/19 15:48 Active Communication Order [RC] STAT Care 10/14/19 15:48 Active Intake and Output Strict [RC] ASDIRECTED Care 10/14/19 17:55 Ordered Vital Signs [RC] PER UNIT ROUTINE Care 10/14/19 17:55 Ordered Nothing Per Oral Diet [DIET] Diet 10/15/19 Breakfast Ordered HYDROmorphone [Dilaudid] Med 10/14/19 17:55 Ordered 1 mg IVPUSH Q4H PRN Insulin Regular, Human [NovoLIN R] 100 unit Med 10/14/19 16:00 Active Sodium Chloride 0.9% [Normal Saline] 99 ml IV TITRATE NS + KCl 20mEq/L [Normal Saline with 20 mEq KCl] 1,000 Med 10/14/19 17:00 Active ml IV ASDIRECTED Ondansetron [Zofran] Med 10/14/19 17:55 Ordered 4 mg IVPUSH Q4H PRN Pantoprazole [ProTONIX IV] 40 mg Med 10/14/19 18:00 Ordered Sodium Chloride 0.9% [Normal Saline] 10 ml IV Q24H Sodium Chloride 0.9% [Normal Saline] 1,000 ml Med 10/14/19 17:55 Ordered IV .Bolus Sodium Chloride 0.9% [Saline Flush] Med 10/14/19 14:48 Active 10 ml FLUSH ASDIRECTED PRN Sodium Chloride 0.9% [Saline Flush] Med 10/14/19 14:48 Active 2.5 ml FLUSH ASDIRECTED PRN Saline Lock Insert [OM.PC] Stat Oth 10/14/19 14:49 Ordered Sequential Compression Device [OM.PC] Stat Oth 10/14/19 17:55 Ordered Resuscitation Status Stat Resus Stat 10/14/19 17:55 Ordered Medication Orders Hydromorphone HCl (Dilaudid) 1 mg IVPUSH Q4H PRN PRN Reason: Pain (severe 7-10) Insulin Human Regular 100 unit (/ Sodium Chloride) 100 mls @ 7.25 mls/hr IV TITRATE MICHAEL; Protocol Last Admin: 10/14/19 16:33 Dose: 0.1 units/kg/hr, 7.25 mls/hr Potassium Chloride/Sodium Chloride (Normal Saline With 20 Meq Kcl) 1,000 mls @ 500 mls/hr IV ASDIRECTED MICHAEL Last Admin: 10/14/19 17:44 Dose: 500 mls/hr Pantoprazole Sodium 40 mg/ (Sodium Chloride) 10 mls @ 300 mls/hr IV Q24H MICHAEL Sodium Chloride (Normal Saline) 1,000 mls @ 999 mls/hr IV .Bolus ONE Stop: 10/14/19 18:55 Ondansetron HCl (Zofran) 4 mg IVPUSH Q4H PRN PRN Reason: Nausea/Vomiting Sodium Chloride (Saline Flush) 10 ml FLUSH ASDIRECTED PRN PRN Reason: Keep Vein Open Last Admin: 10/14/19 15:11 Dose: 10 ml Sodium Chloride (Saline Flush) 2.5 ml FLUSH ASDIRECTED PRN PRN Reason: Keep Vein Open Last Admin: 10/14/19 15:12 Dose: 2.5 ml Assessment/Plan Comment:: 1. Admit to ICU for observation 2. Code status- full 3. Vitals per routine 4. I/Os per routine 5. Diet- NPO 6. DVT prophylaxis with SCDs as he has hematemesis 7. Hypertensive emergency with worsening kidney function likely secondary to medication non compliance- Give IVF, start nicardipine drip. Monitor on Telemetry. 8. Hyperglycemia without DKA likely secondary to medication non compliance- keep on insulin drip, stop once glucose is 300 as patient has a tendency to become hypoglycemic very easily when NPO. Getting another IV bolus 9. Chronic abdominal pain with hematemesis- IV PPI, NPO, IVF, pain control with Dilaudid, will try dose of Haldol for nausea. 10. Acute on chronic kidney failure- likely secondary to HTN- Will give IVF and lower blood pressure. <Gini Means - Last Filed: 10/23/19 16:31> H&P History of Present Illness - General Admit Problem/Dx: Admission Diagnosis/Problem Admission Diagnosis/Problem Hyperglycemia Exam - Vital Signs Vital Signs: Last Vital Signs Temp 36.9 C 10/16/19 12:00 Pulse 91 10/16/19 08:39 Resp 14 10/16/19 14:00 BP 159/86 H 10/16/19 15:02 Pulse Ox 97 10/16/19 14:00 - Patient Data Result Diagrams: 10/16/19 07:30 10/16/19 07:30 Assessment/Plan Comment:: I performed a history and physical exam of the patient and discussed management with resident. I have reviewed the residents note and agree with documented findings and plan unless otherwise specified in my note.
[2019-10-14] MEDS ORDERED: niCARdipine/Normal Saline 20 MG/200 ML BAG IV SCH (19:00)
[2019-10-14] MEDS ORDERED: LORazepam 2 MG/ML SDV ONE (19:01)
[2019-10-14] MEDS ORDERED: LORazepam 2 MG/ML SDV IVPUSH ONE (19:15)
[2019-10-14] MEDS: Pantoprazole 40 MG in Sodium Chloride 0.9% 10 ML IV SCH (20:00)
--- NOTE | 2019-10-14 21:34 | PN ---
THC Physician - Brief Progress [id number]/31/2020 21:30[facility] [address], RAFAEL - BAHMAN (SHILOH) - DAWOOD LUNADate of Service 10/14/2019 21:30HPI/Events of Note Call by RN, BS 218, Insulin gtt stopped by Ebony reyes DKA, ketones negative, normal anion gap, W ill switch him to Q6 hour SQ SSI along with accuchecks Encourage oral intake- food and waterIntervent ions Major-Hyperglycemia - active titration of insulin therapy
[2019-10-14] MEDS: Insulin Aspart 100 Units/ML 3 ML Pen SUBCUT SCH (22:18)
[2019-10-14] MEDS ORDERED: Lactated Ringers 1,000 ML IV SCH (23:15)
--- NOTE | 2019-10-14 23:34 | PN ---
THC Physician - Brief Progress [id number]/31/2020 22:58[facility] Danish [place], [place] - ISIDORON (SHILOH) - ISIDORON DAWOOD SARAVIADate of Service 10/14/2019 22:58HPI/Events of Note 34 yr M presented with abdominal pain and vomiting. BS 800s. AG 10. Hx of DM 1, gastroparesis , right BKA and HTN. CT abdomen with hazy kidney margins, and thickened gall bladder. Ketones Negativ e. On camera assessment, Pt resting in bed comfortably, Stable vital signs Labs and imaging data revi ewed A/P: 1. HyperglycemiaStarted oN Insulin gtt, BS 200s now, NON DKA, will switch him to SQ Insulin Cont NS @ 75cc/hr Advance diet as toleraed Diabetes education Avoid narcotics and BZDs DVT PPx with SCDsInterventions Major-Hyperglycemia - active titration of insulin therapy
[2019-10-15] MEDS: Insulin Aspart 100 Units/ML 3 ML Pen SUBCUT SCH ×4 (04:46→21:27)
[2019-10-15] MEDS ORDERED: hydrALAZINE 20 MG/ML SDV IVPUSH PRN (04:47)
--- NOTE | 2019-10-15 04:52 | PN ---
[facility] Physician - Brief Progress [id number]/01/2020 04:50[facility] raynaDanish, RAFAEL - ISIDORON (SHILOH) - DAWOOD LUNADate of Service 10/15/2019 04:50HPI/Events of Note SBP > 180, HR 104. in ED responded well to hydralazine. Hydralazine 10 mg IV prn for SBP > 160 once for now.Interventions Intermediate-Hypertension - evaluation and managementElectronically Si gned by: CAITY WADDELL) on 10/15/2019 04:51
[2019-10-15 07:08] LABS: CARBON DIOXIDE,CO2 25.1 mmol/L (21.0-32.0); POTASSIUM,K 3.8 mmol/L (3.5-5.1)
[2019-10-15] MEDS ORDERED: LORazepam 2 MG/ML SDV IVPUSH ONE ×2 (08:52→14:19)
--- NOTE | 2019-10-15 09:15 | PN ---
THC Physician - Brief Progress [id number]/01/2020 08:51[facility] Danish Tavera, RAFAEL [facility] - [facility] MONIKDAWOOD JONES.Date of Service 10/15/2019 08:51HPI/Events of Note eICU Progress [id number] admitted for [facility]. History obtained primarily from review of EMR.Notable events: Anion gap closed, patient continues to have hyperglycemia. Hemoglobin did drop to 8.5 from ~1 1, patient also has new leukocytosis. Alkaline phosphatase elevatedCamera exam: Laying in bed. Vitals monitor reviewed, patient is tachycardic. Insulin drip does not appear to be runningVitals: reviewed Labs: reviewedRadiology: reviewedMeds: reviewedeICU Impression and Recommendations:Hyperglycemia, imp roved. It appears patient has been transitioned to a q6h aspart regimen, and IV insulin is no longer running. Etiology/inciting event is uncertain to me at this time, however may be related to whatever process is causing his positive SIRS criteriaPositive SIRS criteria, as evidenced by leukocytosis and tachycardia, with differential including sepsis or (in light of hypertension) drug withdrawalElevate d alkaline phosphataseDrop in hemoglobin, may reflect hemodilution, although cannot rule out possible GI bleed given patient's reported complaints of hematemesis on admissionConsider initiation of long acting - for example can use half of daily dose of aspart as starting dose of glargineDiabetes educat ion per institutional protocolOn discharge recommend close follow up with PCPRecommend blood cultures , respiratory cultures, and serum lactate. Trend alkaline phosphataseTrend H&H q6h, consider IV PPI B ID until hemoglobin stability determinedShould hypertension fail to resolve, suggest initiation of wo rk up for secondary hypertension, although I suspect this can be carried out in an outpatient setting . I would start with seated plasma aldosterone and plasma renin concentration, with confirmation test ing (if PAC >10 and PRA <1 or PRC less than lower limit of normal) depending on availability at insti tution (ie fludrocortisone suppression, saline suppression, or 24 hour urine aldosterone, sodium and creatinine)TSH, FT4, ionized calcium. Blood pressure testing in arms and legs to rule out coarctation of aorta. DVT and GI prophylaxis as appropriate.We are available to assist in further clarification, or implementation of any of the above recommendations if desired by primary service.Thank you for al lowing us to participate in the care of this patient.The above note transcribed with the assistance o f dictation software. Please excuse any errors.Interventions Major-Hyperglycemia - active titration o f insulin therapy
[2019-10-15] MEDS: Metoprolol Succinate 100 MG Tab.ER PO SCH (09:43)
--- NOTE | 2019-10-15 11:31 | PCM.PN ---
Addendum entered and electronically signed by Devi Covarrubias DO 10/15/19 11: 33: Also- had elevated white count today of 12.5 with evidence of pyelonephritis on CT ab/pelvis- will start Rocephin and urine culture. Original Note: - General Info Date of Service: 10/15/19 Subjective Update: Patient reports he slept all night, no longer vomiting or having abdominal pain. HTN improving, sugars improving. - Review of Systems General: Reports: No Symptoms HEENT: Reports: No Symptoms Pulmonary: Reports: No Symptoms Cardiovascular: Reports: No Symptoms Gastrointestinal: Reports: No Symptoms Genitourinary: Reports: No Symptoms Musculoskeletal: Reports: No Symptoms Skin: Reports: No Symptoms Neurological: Reports: No Symptoms Psychiatric: Reports: No Symptoms - Patient Data Vitals - Most Recent: Last Vital Signs Temp 98.5 F 10/15/19 08:00 Pulse 105 H 10/15/19 09:43 Resp 16 10/15/19 11:00 BP 160/94 H 10/15/19 11:00 Pulse Ox 95 10/15/19 11:00 Weight - Most Recent: 75.9 kg I&O - Last 24 Hours: Intake & Output 10/14/19 10/15/19 10/15/19 22:59 06:59 14:59 Intake Total 2997 900 Output Total 650 Balance 2997 250 Lab Results Last 24 Hours: Laboratory Results - last 24 hr 10/14/19 10/14/19 10/14/19 Range/Units 14:55 14:55 14:55 WBC 9.66 (4.0-11.0) K/uL RBC 5.18 (4.50-5.90) M/uL Hgb 11.2 L (13.0-17.0) g/dL Hct 35.1 L (38.0-50.0) % MCV 67.8 L (80.0-98.0) fL MCH 21.6 L (27.0-32.0) pg MCHC 31.9 (31.0-37.0) g/dL RDW Std Deviation 38.7 (28.0-62.0) fl RDW Coeff of Dania 16 H (11.0-15.0) % Plt Count 309 (150-400) K/uL MPV 11.40 (7.40-12.00) fL Neut % (Auto) 75.5 (48.0-80.0) % Lymph % (Auto) 16.1 (16.0-40.0) % [place] % (Auto) 6.3 (0.0-15.0) % Eos % (Auto) 1.6 (0.0-7.0) % Baso % (Auto) 0.5 (0.0-1.5) % Neut # (Auto) 7.3 H (1.4-5.7) K/uL Lymph # (Auto) 1.6 (0.6-2.4) K/uL [place] # (Auto) 0.6 (0.0-0.8) K/uL Eos # (Auto) 0.2 (0.0-0.7) K/uL Baso # (Auto) 0.1 (0.0-0.1) K/uL Nucleated RBC % 0.0 /100WBC Nucleated RBCs # 0 K/uL VBG pH (7.31-7.41) VBG pCO2 (35-45) mmHG VBG pO2 (30-40) mmHG VBG HCO3 (22-30) mEq/L VBG Total CO2 (41-51) mmol/L VBG Base Excess (-3.0-3.0) Lactate (0.20-2.00) mmol/L Sodium 131 L (136-148) mmol/L Potassium 4.7 (3.5-5.1) mmol/L Chloride 95 L (98-107) mmol/L Carbon Dioxide 25.4 (21.0-32.0) mmol/L BUN 48 H (7.0-18.0) mg/dL Creatinine 2.9 H (0.8-1.3) mg/dL Est Cr Clr Drug Dosing TNP Estimated GFR (MDRD) 25.2 ml/min Glucose 871 H* (74-106) mg/dL POC Glucose (60-110) mg/dL Calcium 8.4 L (8.5-10.1) mg/dL Total Bilirubin 0.2 (0.2-1.0) mg/dL AST 29 (15-37) IU/L ALT 33 (14-63) IU/L Alkaline Phosphatase 283 H (46-116) U/L Troponin I (0.000-0.056) ng/mL Total Protein 7.2 (6.4-8.2) g/dL Albumin 2.7 L (3.4-5.0) g/dL Globulin 4.5 H (2.6-4.0) g/dL Albumin/Globulin Ratio 0.6 L (0.9-1.6) Lipase 91 (73-393) U/L Urine Color Urine Appearance Urine pH (5.0-8.0) Ur Specific [place] (1.001-1.035) Urine Protein (NEGATIVE) mg/dL Urine Glucose (UA) (NEGATIVE) mg/dL Urine Ketones (NEGATIVE) mg/dL Urine Occult Blood (NEGATIVE) Urine Nitrite (NEGATIVE) Urine Bilirubin (NEGATIVE) Urine Urobilinogen (<2.0) EU/dL Ur Leukocyte Esterase (NEGATIVE) Urine RBC (0-2/HPF) Urine WBC (0-5/HPF) Ur Epithelial Cells (NONE-FEW) Urine Bacteria (NEGATIVE) Urine Opiates Screen (NEGATIVE) Ur Oxycodone Screen (NEGATIVE) Urine Methadone Screen (NEGATIVE) Ur Barbiturates Screen (NEGATIVE) Ur Phencyclidine Scrn (NEGATIVE) Ur Amphetamine Screen (NEGATIVE) U Methamphetamines Scrn (NEGATIVE) U Benzodiazepines Scrn (NEGATIVE) U Cocaine Metab Screen (NEGATIVE) U Marijuana (THC) Screen (NEGATIVE) Ketones NEGATIVE (NEG) 10/14/19 10/14/19 10/14/19 Range/Units 14:55 14:55 14:55 WBC (4.0-11.0) K/uL RBC (4.50-5.90) M/uL Hgb (13.0-17.0) g/dL Hct (38.0-50.0) % MCV (80.0-98.0) fL MCH (27.0-32.0) pg MCHC (31.0-37.0) g/dL RDW Std Deviation (28.0-62.0) fl RDW Coeff of Dania (11.0-15.0) % Plt Count (150-400) K/uL MPV (7.40-12.00) fL Neut % (Auto) (48.0-80.0) % Lymph % (Auto) (16.0-40.0) % [place] % (Auto) (0.0-15.0) % Eos % (Auto) (0.0-7.0) % Baso % (Auto) (0.0-1.5) % Neut # (Auto) (1.4-5.7) K/uL Lymph # (Auto) (0.6-2.4) K/uL [place] # (Auto) (0.0-0.8) K/uL Eos # (Auto) (0.0-0.7) K/uL Baso # (Auto) (0.0-0.1) K/uL Nucleated RBC % /100WBC Nucleated RBCs # K/uL VBG pH 7.44 H (7.31-7.41) VBG pCO2 37 (35-45) mmHG VBG pO2 30 (30-40) mmHG VBG HCO3 25 (22-30) mEq/L VBG Total CO2 23 L (41-51) mmol/L VBG Base Excess 1.3 (-3.0-3.0) Lactate 1.8 (0.20-2.00) mmol/L Sodium (136-148) mmol/L Potassium (3.5-5.1) mmol/L Chloride (98-107) mmol/L Carbon Dioxide (21.0-32.0) mmol/L BUN (7.0-18.0) mg/dL Creatinine (0.8-1.3) mg/dL Est Cr Clr Drug Dosing Estimated GFR (MDRD) ml/min Glucose (74-106) mg/dL POC Glucose (60-110) mg/dL Calcium (8.5-10.1) mg/dL Total Bilirubin (0.2-1.0) mg/dL AST (15-37) IU/L ALT (14-63) IU/L Alkaline Phosphatase (46-116) U/L Troponin I < 0.050 (0.000-0.056) ng/mL Total Protein (6.4-8.2) g/dL Albumin (3.4-5.0) g/dL Globulin (2.6-4.0) g/dL Albumin/Globulin Ratio (0.9-1.6) Lipase (73-393) U/L Urine Color Urine Appearance Urine pH (5.0-8.0) Ur Specific [place] (1.001-1.035) Urine Protein (NEGATIVE) mg/dL Urine Glucose (UA) (NEGATIVE) mg/dL Urine Ketones (NEGATIVE) mg/dL Urine Occult Blood (NEGATIVE) Urine Nitrite (NEGATIVE) Urine Bilirubin (NEGATIVE) Urine Urobilinogen (<2.0) EU/dL Ur Leukocyte Esterase (NEGATIVE) Urine RBC (0-2/HPF) Urine WBC (0-5/HPF) Ur Epithelial Cells (NONE-FEW) Urine Bacteria (NEGATIVE) Urine Opiates Screen (NEGATIVE) Ur Oxycodone Screen (NEGATIVE) Urine Methadone Screen (NEGATIVE) Ur Barbiturates Screen (NEGATIVE) Ur Phencyclidine Scrn (NEGATIVE) Ur Amphetamine Screen (NEGATIVE) U Methamphetamines Scrn (NEGATIVE) U Benzodiazepines Scrn (NEGATIVE) U Cocaine Metab Screen (NEGATIVE) U Marijuana (THC) Screen (NEGATIVE) Ketones (NEG) 10/14/19 10/14/19 10/14/19 Range/Units 15:55 15:55 16:42 WBC (4.0-11.0) K/uL RBC (4.50-5.90) M/uL Hgb (13.0-17.0) g/dL Hct (38.0-50.0) % MCV (80.0-98.0) fL MCH (27.0-32.0) pg MCHC (31.0-37.0) g/dL RDW Std Deviation (28.0-62.0) fl RDW Coeff of Dania (11.0-15.0) % Plt Count (150-400) K/uL MPV (7.40-12.00) fL Neut % (Auto) (48.0-80.0) % Lymph % (Auto) (16.0-40.0) % [place] % (Auto) (0.0-15.0) % Eos % (Auto) (0.0-7.0) % Baso % (Auto) (0.0-1.5) % Neut # (Auto) (1.4-5.7) K/uL Lymph # (Auto) (0.6-2.4) K/uL [place] # (Auto) (0.0-0.8) K/uL Eos # (Auto) (0.0-0.7) K/uL Baso # (Auto) (0.0-0.1) K/uL Nucleated RBC % /100WBC Nucleated RBCs # K/uL VBG pH (7.31-7.41) VBG pCO2 (35-45) mmHG VBG pO2 (30-40) mmHG VBG HCO3 (22-30) mEq/L VBG Total CO2 (41-51) mmol/L VBG Base Excess (-3.0-3.0) Lactate (0.20-2.00) mmol/L Sodium (136-148) mmol/L Potassium (3.5-5.1) mmol/L Chloride (98-107) mmol/L Carbon Dioxide (21.0-32.0) mmol/L BUN (7.0-18.0) mg/dL Creatinine (0.8-1.3) mg/dL Est Cr Clr Drug Dosing Estimated GFR (MDRD) ml/min Glucose (74-106) mg/dL POC Glucose > 500 H (60-110) mg/dL Calcium (8.5-10.1) mg/dL Total Bilirubin (0.2-1.0) mg/dL AST (15-37) IU/L ALT (14-63) IU/L Alkaline Phosphatase (46-116) U/L Troponin I (0.000-0.056) ng/mL Total Protein (6.4-8.2) g/dL Albumin (3.4-5.0) g/dL Globulin (2.6-4.0) g/dL Albumin/Globulin Ratio (0.9-1.6) Lipase (73-393) U/L Urine Color YELLOW Urine Appearance HAZY Urine pH 7.5 (5.0-8.0) Ur Specific [place] 1.020 (1.001-1.035) Urine Protein 100 H (NEGATIVE) mg/dL Urine Glucose (UA) >=1000 (NEGATIVE) mg/dL Urine Ketones NEGATIVE (NEGATIVE) mg/dL Urine Occult Blood TRACE-INTACT H (NEGATIVE) Urine Nitrite NEGATIVE (NEGATIVE) Urine Bilirubin NEGATIVE (NEGATIVE) Urine Urobilinogen 0.2 (<2.0) EU/dL Ur Leukocyte Esterase NEGATIVE (NEGATIVE) Urine RBC 0-3 (0-2/HPF) Urine WBC NONE SEEN (0-5/HPF) Ur Epithelial Cells RARE (NONE-FEW) Urine Bacteria NOT SEEN (NEGATIVE) Urine Opiates Screen NEGATIVE (NEGATIVE) Ur Oxycodone Screen NEGATIVE (NEGATIVE) Urine Methadone Screen NEGATIVE (NEGATIVE) Ur Barbiturates Screen NEGATIVE (NEGATIVE) Ur Phencyclidine Scrn NEGATIVE (NEGATIVE) Ur Amphetamine Screen NEGATIVE (NEGATIVE) U Methamphetamines Scrn NEGATIVE (NEGATIVE) U Benzodiazepines Scrn NEGATIVE (NEGATIVE) U Cocaine Metab Screen NEGATIVE (NEGATIVE) U Marijuana (THC) Screen POSITIVE (NEGATIVE) Ketones (NEG) 10/14/19 10/14/19 10/14/19 Range/Units 17:31 18:57 19:53 WBC (4.0-11.0) K/uL RBC (4.50-5.90) M/uL Hgb (13.0-17.0) g/dL Hct (38.0-50.0) % MCV (80.0-98.0) fL MCH (27.0-32.0) pg MCHC (31.0-37.0) g/dL RDW Std Deviation (28.0-62.0) fl RDW Coeff of Dania (11.0-15.0) % Plt Count (150-400) K/uL MPV (7.40-12.00) fL Neut % (Auto) (48.0-80.0) % Lymph % (Auto) (16.0-40.0) % [place] % (Auto) (0.0-15.0) % Eos % (Auto) (0.0-7.0) % Baso % (Auto) (0.0-1.5) % Neut # (Auto) (1.4-5.7) K/uL Lymph # (Auto) (0.6-2.4) K/uL [place] # (Auto) (0.0-0.8) K/uL Eos # (Auto) (0.0-0.7) K/uL Baso # (Auto) (0.0-0.1) K/uL Nucleated RBC % /100WBC Nucleated RBCs # K/uL VBG pH (7.31-7.41) VBG pCO2 (35-45) mmHG VBG pO2 (30-40) mmHG VBG HCO3 (22-30) mEq/L VBG Total CO2 (41-51) mmol/L VBG Base Excess (-3.0-3.0) Lactate (0.20-2.00) mmol/L Sodium (136-148) mmol/L Potassium (3.5-5.1) mmol/L Chloride (98-107) mmol/L Carbon Dioxide (21.0-32.0) mmol/L BUN (7.0-18.0) mg/dL Creatinine (0.8-1.3) mg/dL Est Cr Clr Drug Dosing Estimated GFR (MDRD) ml/min Glucose (74-106) mg/dL POC Glucose > 500 H 431 H 357 H (60-110) mg/dL Calcium (8.5-10.1) mg/dL Total Bilirubin (0.2-1.0) mg/dL AST (15-37) IU/L ALT (14-63) IU/L Alkaline Phosphatase (46-116) U/L Troponin I (0.000-0.056) ng/mL Total Protein (6.4-8.2) g/dL Albumin (3.4-5.0) g/dL Globulin (2.6-4.0) g/dL Albumin/Globulin Ratio (0.9-1.6) Lipase (73-393) U/L Urine Color Urine Appearance Urine pH (5.0-8.0) Ur Specific [place] (1.001-1.035) Urine Protein (NEGATIVE) mg/dL Urine Glucose (UA) (NEGATIVE) mg/dL Urine Ketones (NEGATIVE) mg/dL Urine Occult Blood (NEGATIVE) Urine Nitrite (NEGATIVE) Urine Bilirubin (NEGATIVE) Urine Urobilinogen (<2.0) EU/dL Ur Leukocyte Esterase (NEGATIVE) Urine RBC (0-2/HPF) Urine WBC (0-5/HPF) Ur Epithelial Cells (NONE-FEW) Urine Bacteria (NEGATIVE) Urine Opiates Screen (NEGATIVE) Ur Oxycodone Screen (NEGATIVE) Urine Methadone Screen (NEGATIVE) Ur Barbiturates Screen (NEGATIVE) Ur Phencyclidine Scrn (NEGATIVE) Ur Amphetamine Screen (NEGATIVE) U Methamphetamines Scrn (NEGATIVE) U Benzodiazepines Scrn (NEGATIVE) U Cocaine Metab Screen (NEGATIVE) U Marijuana (THC) Screen (NEGATIVE) Ketones (NEG) 10/14/19 10/14/19 10/15/19 Range/Units 20:55 23:21 04:43 WBC (4.0-11.0) K/uL RBC (4.50-5.90) M/uL Hgb (13.0-17.0) g/dL Hct (38.0-50.0) % MCV (80.0-98.0) fL MCH (27.0-32.0) pg MCHC (31.0-37.0) g/dL RDW Std Deviation (28.0-62.0) fl RDW Coeff of Dania (11.0-15.0) % Plt Count (150-400) K/uL MPV (7.40-12.00) fL Neut % (Auto) (48.0-80.0) % Lymph % (Auto) (16.0-40.0) % [place] % (Auto) (0.0-15.0) % Eos % (Auto) (0.0-7.0) % Baso % (Auto) (0.0-1.5) % Neut # (Auto) (1.4-5.7) K/uL Lymph # (Auto) (0.6-2.4) K/uL [place] # (Auto) (0.0-0.8) K/uL Eos # (Auto) (0.0-0.7) K/uL Baso # (Auto) (0.0-0.1) K/uL Nucleated RBC % /100WBC Nucleated RBCs # K/uL VBG pH (7.31-7.41) VBG pCO2 (35-45) mmHG VBG pO2 (30-40) mmHG VBG HCO3 (22-30) mEq/L VBG Total CO2 (41-51) mmol/L VBG Base Excess (-3.0-3.0) Lactate (0.20-2.00) mmol/L Sodium (136-148) mmol/L Potassium (3.5-5.1) mmol/L Chloride (98-107) mmol/L Carbon Dioxide (21.0-32.0) mmol/L BUN (7.0-18.0) mg/dL Creatinine (0.8-1.3) mg/dL Est Cr Clr Drug Dosing Estimated GFR (MDRD) ml/min Glucose (74-106) mg/dL POC Glucose 218 H 170 H 348 H (60-110) mg/dL Calcium (8.5-10.1) mg/dL Total Bilirubin (0.2-1.0) mg/dL AST (15-37) IU/L ALT (14-63) IU/L Alkaline Phosphatase (46-116) U/L Troponin I (0.000-0.056) ng/mL Total Protein (6.4-8.2) g/dL Albumin (3.4-5.0) g/dL Globulin (2.6-4.0) g/dL Albumin/Globulin Ratio (0.9-1.6) Lipase (73-393) U/L Urine Color Urine Appearance Urine pH (5.0-8.0) Ur Specific [place] (1.001-1.035) Urine Protein (NEGATIVE) mg/dL Urine Glucose (UA) (NEGATIVE) mg/dL Urine Ketones (NEGATIVE) mg/dL Urine Occult Blood (NEGATIVE) Urine Nitrite (NEGATIVE) Urine Bilirubin (NEGATIVE) Urine Urobilinogen (<2.0) EU/dL Ur Leukocyte Esterase (NEGATIVE) Urine RBC (0-2/HPF) Urine WBC (0-5/HPF) Ur Epithelial Cells (NONE-FEW) Urine Bacteria (NEGATIVE) Urine Opiates Screen (NEGATIVE) Ur Oxycodone Screen (NEGATIVE) Urine Methadone Screen (NEGATIVE) Ur Barbiturates Screen (NEGATIVE) Ur Phencyclidine Scrn (NEGATIVE) Ur Amphetamine Screen (NEGATIVE) U Methamphetamines Scrn (NEGATIVE) U Benzodiazepines Scrn (NEGATIVE) U Cocaine Metab Screen (NEGATIVE) U Marijuana (THC) Screen (NEGATIVE) Ketones (NEG) 10/15/19 10/15/19 10/15/19 Range/Units 06:05 06:05 09:23 WBC 12.47 H (4.0-11.0) K/uL RBC 4.01 L (4.50-5.90) M/uL Hgb 8.5 L (13.0-17.0) g/dL Hct 27.1 L (38.0-50.0) % MCV 67.6 L (80.0-98.0) fL MCH 21.2 L (27.0-32.0) pg MCHC 31.4 (31.0-37.0) g/dL RDW Std Deviation 39.0 (28.0-62.0) fl RDW Coeff of Dania 16 H (11.0-15.0) % Plt Count 273 (150-400) K/uL MPV 11.60 (7.40-12.00) fL Neut % (Auto) 76.5 (48.0-80.0) % Lymph % (Auto) 15.9 L (16.0-40.0) % [place] % (Auto) 7.0 (0.0-15.0) % Eos % (Auto) 0.4 (0.0-7.0) % Baso % (Auto) 0.2 (0.0-1.5) % Neut # (Auto) 9.5 H (1.4-5.7) K/uL Lymph # (Auto) 2.0 (0.6-2.4) K/uL [place] # (Auto) 0.9 H (0.0-0.8) K/uL Eos # (Auto) 0.1 (0.0-0.7) K/uL Baso # (Auto) 0.0 (0.0-0.1) K/uL Nucleated RBC % 0.0 /100WBC Nucleated RBCs # 0 K/uL VBG pH (7.31-7.41) VBG pCO2 (35-45) mmHG VBG pO2 (30-40) mmHG VBG HCO3 (22-30) mEq/L VBG Total CO2 (41-51) mmol/L VBG Base Excess (-3.0-3.0) Lactate (0.20-2.00) mmol/L Sodium 144 (136-148) mmol/L Potassium 3.8 (3.5-5.1) mmol/L Chloride 110 H (98-107) mmol/L Carbon Dioxide 25.1 (21.0-32.0) mmol/L BUN 45 H (7.0-18.0) mg/dL Creatinine 2.5 H (0.8-1.3) mg/dL Est Cr Clr Drug Dosing 32.46 Estimated GFR (MDRD) 29.9 ml/min Glucose 328 H (74-106) mg/dL POC Glucose 308 H (60-110) mg/dL Calcium 7.6 L (8.5-10.1) mg/dL Total Bilirubin (0.2-1.0) mg/dL AST (15-37) IU/L ALT (14-63) IU/L Alkaline Phosphatase (46-116) U/L Troponin I (0.000-0.056) ng/mL Total Protein (6.4-8.2) g/dL Albumin (3.4-5.0) g/dL Globulin (2.6-4.0) g/dL Albumin/Globulin Ratio (0.9-1.6) Lipase (73-393) U/L Urine Color Urine Appearance Urine pH (5.0-8.0) Ur Specific [place] (1.001-1.035) Urine Protein (NEGATIVE) mg/dL Urine Glucose (UA) (NEGATIVE) mg/dL Urine Ketones (NEGATIVE) mg/dL Urine Occult Blood (NEGATIVE) Urine Nitrite (NEGATIVE) Urine Bilirubin (NEGATIVE) Urine Urobilinogen (<2.0) EU/dL Ur Leukocyte Esterase (NEGATIVE) Urine RBC (0-2/HPF) Urine WBC (0-5/HPF) Ur Epithelial Cells (NONE-FEW) Urine Bacteria (NEGATIVE) Urine Opiates Screen (NEGATIVE) Ur Oxycodone Screen (NEGATIVE) Urine Methadone Screen (NEGATIVE) Ur Barbiturates Screen (NEGATIVE) Ur Phencyclidine Scrn (NEGATIVE) Ur Amphetamine Screen (NEGATIVE) U Methamphetamines Scrn (NEGATIVE) U Benzodiazepines Scrn (NEGATIVE) U Cocaine Metab Screen (NEGATIVE) U Marijuana (THC) Screen (NEGATIVE) Ketones (NEG) 10/15/19 Range/Units 11:16 WBC (4.0-11.0) K/uL RBC (4.50-5.90) M/uL Hgb (13.0-17.0) g/dL Hct (38.0-50.0) % MCV (80.0-98.0) fL MCH (27.0-32.0) pg MCHC (31.0-37.0) g/dL RDW Std Deviation (28.0-62.0) fl RDW Coeff of Dania (11.0-15.0) % Plt Count (150-400) K/uL MPV (7.40-12.00) fL Neut % (Auto) (48.0-80.0) % Lymph % (Auto) (16.0-40.0) % [place] % (Auto) (0.0-15.0) % Eos % (Auto) (0.0-7.0) % Baso % (Auto) (0.0-1.5) % Neut # (Auto) (1.4-5.7) K/uL Lymph # (Auto) (0.6-2.4) K/uL [place] # (Auto) (0.0-0.8) K/uL Eos # (Auto) (0.0-0.7) K/uL Baso # (Auto) (0.0-0.1) K/uL Nucleated RBC % /100WBC Nucleated RBCs # K/uL VBG pH (7.31-7.41) VBG pCO2 (35-45) mmHG VBG pO2 (30-40) mmHG VBG HCO3 (22-30) mEq/L VBG Total CO2 (41-51) mmol/L VBG Base Excess (-3.0-3.0) Lactate (0.20-2.00) mmol/L Sodium (136-148) mmol/L Potassium (3.5-5.1) mmol/L Chloride (98-107) mmol/L Carbon Dioxide (21.0-32.0) mmol/L BUN (7.0-18.0) mg/dL Creatinine (0.8-1.3) mg/dL Est Cr Clr Drug Dosing Estimated GFR (MDRD) ml/min Glucose (74-106) mg/dL POC Glucose 298 H (60-110) mg/dL Calcium (8.5-10.1) mg/dL Total Bilirubin (0.2-1.0) mg/dL AST (15-37) IU/L ALT (14-63) IU/L Alkaline Phosphatase (46-116) U/L Troponin I (0.000-0.056) ng/mL Total Protein (6.4-8.2) g/dL Albumin (3.4-5.0) g/dL Globulin (2.6-4.0) g/dL Albumin/Globulin Ratio (0.9-1.6) Lipase (73-393) U/L Urine Color Urine Appearance Urine pH (5.0-8.0) Ur Specific [place] (1.001-1.035) Urine Protein (NEGATIVE) mg/dL Urine Glucose (UA) (NEGATIVE) mg/dL Urine Ketones (NEGATIVE) mg/dL Urine Occult Blood (NEGATIVE) Urine Nitrite (NEGATIVE) Urine Bilirubin (NEGATIVE) Urine Urobilinogen (<2.0) EU/dL Ur Leukocyte Esterase (NEGATIVE) Urine RBC (0-2/HPF) Urine WBC (0-5/HPF) Ur Epithelial Cells (NONE-FEW) Urine Bacteria (NEGATIVE) Urine Opiates Screen (NEGATIVE) Ur Oxycodone Screen (NEGATIVE) Urine Methadone Screen (NEGATIVE) Ur Barbiturates Screen (NEGATIVE) Ur Phencyclidine Scrn (NEGATIVE) Ur Amphetamine Screen (NEGATIVE) U Methamphetamines Scrn (NEGATIVE) U Benzodiazepines Scrn (NEGATIVE) U Cocaine Metab Screen (NEGATIVE) U Marijuana (THC) Screen (NEGATIVE) Ketones (NEG) Med Orders - Current: Current Medications Hydralazine HCl (Apresoline) 10 mg IVPUSH ONETIME PRN PRN Reason: Hypertension Last Admin: 10/15/19 04:55 Dose: 10 mg Insulin Human Regular 100 unit (/ Sodium Chloride) 100 mls @ 7.25 mls/hr IV TITRATE MICHAEL; Protocol Last Titration: 10/14/19 21:00 Dose: 0 units/kg/hr, 0 mls/hr Pantoprazole Sodium 40 mg/ (Sodium Chloride) 10 mls @ 300 mls/hr IV Q24H MICHAEL Last Admin: 10/14/19 20:00 Dose: 300 mls/hr Nicardipine HCl (Cardene 20 Mg In Ns 200 Ml) 20 mg in 200 mls @ 50 mls/hr IV TITRATE MICHAEL; Protocol Lactated Ringer's (Ringers, Lactated) 1,000 mls @ 75 mls/hr IV ASDIRECTED MICHAEL Last Admin: 10/14/19 23:11 Dose: 75 mls/hr Insulin Aspart (Novolog) 0 unit SUBCUT Q6H MICHAEL; Protocol Last Admin: 10/15/19 09:37 Dose: 4 units Metoprolol Succinate (Toprol Xl) 200 mg PO DAILY MICHAEL Last Admin: 10/15/19 09:43 Dose: 200 mg Ondansetron HCl (Zofran) 4 mg IVPUSH Q4H PRN PRN Reason: Nausea/Vomiting Sodium Chloride (Saline Flush) 10 ml FLUSH ASDIRECTED PRN PRN Reason: Keep Vein Open Last Admin: 10/14/19 15:11 Dose: 10 ml Sodium Chloride (Saline Flush) 2.5 ml FLUSH ASDIRECTED PRN PRN Reason: Keep Vein Open Last Admin: 10/14/19 15:12 Dose: 2.5 ml Discontinued Medications Haloperidol (Haldol) 5 mg PO ONETIME ONE Stop: 10/14/19 18:04 Last Admin: 10/14/19 18:07 Dose: Not Given Haloperidol Lactate (Haldol) 1 mg IM ONETIME ONE Stop: 10/14/19 17:56 Last Admin: 10/14/19 19:57 Dose: Not Given Haloperidol Lactate (Haldol) 5 mg IM ONETIME ONE Stop: 10/14/19 18:06 Last Admin: 10/14/19 18:07 Dose: 5 mg Haloperidol Lactate (Haldol) 5 mg IM ONETIME ONE Stop: 10/14/19 19:16 Last Admin: 10/14/19 19:15 Dose: 5 mg Hydralazine HCl (Apresoline) 20 mg IVPUSH ONETIME ONE Stop: 10/14/19 17:34 Last Admin: 10/14/19 17:44 Dose: 20 mg Hydromorphone HCl (Dilaudid) 1 mg IVPUSH ONETIME ONE Stop: 10/14/19 15:03 Last Admin: 10/14/19 15:11 Dose: 1 mg Hydromorphone HCl (Dilaudid) 1 mg IVPUSH Q4H PRN PRN Reason: Pain (severe 7-10) Hydromorphone HCl (Dilaudid) 1 mg IVPUSH ONETIME ONE Stop: 10/14/19 18:12 Last Admin: 10/14/19 18:16 Dose: 1 mg Sodium Chloride (Normal Saline) 1,000 mls @ 999 mls/hr IV BOLUS ONE Stop: 10/14/19 15:48 Last Admin: 10/14/19 15:11 Dose: 999 mls/hr Sodium Chloride (Normal Saline) 1,000 mls @ 999 mls/hr IV .Bolus ONE Stop: 10/14/19 17:55 Last Admin: 10/14/19 17:45 Dose: 999 mls/hr Potassium Chloride/Sodium Chloride (Normal Saline With 20 Meq Kcl) 1,000 mls @ 500 mls/hr IV ASDIRECTED [facility] Last Admin: 10/14/19 17:44 Dose: 500 mls/hr Sodium Chloride (Normal Saline) 1,000 mls @ 999 mls/hr IV .Bolus ONE Stop: 10/14/19 18:55 Last Admin: 10/14/19 20:09 Dose: 999 mls/hr Lorazepam (Ativan) Confirm Administered Dose 2 mg .ROUTE .STK-MED ONE Stop: 10/14/19 19:02 Last Admin: 10/14/19 20:00 Dose: Not Given Lorazepam (Ativan) 2 mg IVPUSH ONETIME ONE Stop: 10/14/19 19:16 Last Admin: 10/14/19 19:15 Dose: 2 mg Lorazepam (Ativan) 1 mg IVPUSH ONETIME ONE Stop: 10/15/19 08:53 Last Admin: 10/15/19 09:04 Dose: 1 mg Ondansetron HCl (Zofran) 4 mg IVPUSH ONETIME ONE Stop: 10/14/19 14:49 Last Admin: 10/14/19 15:11 Dose: 4 mg - Exam General: Alert, Oriented, Cooperative Lungs: Clear to Auscultation, Normal Respiratory Effort Cardiovascular: Regular Rate, Regular Rhythm GI/Abdominal Exam: Normal Bowel Sounds, Soft, Non-Tender, No Distention Extremities: No Pedal Edema Skin: Warm, Dry, Intact Neurological: No New Focal Deficit Psy/Mental Status: Alert, Normal Affect, Normal Mood Sepsis Event Note - Evaluation Sepsis Screening Result: No Definite Risk - Focused Exam Vital Signs: Vital Signs Temp Pulse Resp BP BP BP Pulse Ox 10/15/19 11:00 16 160/94 H 95 10/15/19 10:30 19 149/91 H 93 L 10/15/19 10:00 15 146/85 H 94 L 10/15/19 09:43 105 H 203/113 H 10/15/19 09:30 15 203/113 H 94 L 10/15/19 09:00 11 L 186/99 H 94 L 10/15/19 08:00 98.5 F 15 151/95 H 93 L 10/15/19 07:00 18 141/84 H 97 10/15/19 06:00 17 151/90 H 98 10/15/19 05:00 14 154/85 H 97 10/15/19 04:00 97.3 F 10 L 192/106 H 96 10/15/19 03:00 15 147/93 H 97 10/15/19 02:00 16 130/86 96 10/15/19 01:00 14 144/87 H 95 10/15/19 00:00 97.7 F 10 L 145/89 H 96 Date Exam was Performed: 10/15/19 Time Exam was Performed: 11:26 - Problem List Review Problem List Initiated/Reviewed/Updated: Yes - My Orders Last 24 Hours: My Active Orders 10/14/19 17:52 Admission Status [Patient Status] [ADT] Stat 10/14/19 17:55 Intake and Output Strict [RC] Q12H Vital Signs [RC] Q1H Ondansetron [Zofran] 4 mg IVPUSH Q4H PRN Sequential Compression Device [OM.PC] Stat Resuscitation Status Stat 10/14/19 17:56 Antiembolic Devices [RC] PER UNIT ROUTINE 10/14/19 18:00 Pantoprazole [ProTONIX IV] 40 mg Sodium Chloride 0.9% [Normal Saline] 10 ml IV Q24H 10/14/19 19:00 niCARdipine/Normal Saline [Cardene 20 MG in NS 200 ML] 20 mg in 200 ml IV TITRATE 10/15/19 09:30 Metoprolol Succinate [Toprol XL] 200 mg PO DAILY - Plan Plan:: 7. Hypertensive emergency with worsening kidney function likely secondary to medication non compliance-improving- nicardipine drip was never started. Received IV hydralazine overnight. Will restart home metoprolol. Monitor on Telemetry. 8. Hyperglycemia without DKA likely secondary to medication non compliance- insulin drip d/c. Continue sliding scale insulin and accuchecks 9. Chronic abdominal pain with hematemesis- resolved, hold IV pain medications. Hemoglobin dropped from 11.2 to 8.5 but he received 4 L of IVF and had no further episode of hematemesis, likely dilutional. Can try clear liquid diet. 10. Acute on chronic kidney failure- likely secondary to HTN- Improving
[2019-10-15] MEDS: Sodium Chloride 0.9% 1,000 ML IV SCH (12:17)
[2019-10-15] MEDS ORDERED: diphenhydrAMINE 50 MG/ML SDV IVPUSH PRN (12:48)
[2019-10-15] MEDS: cefTRIAXone 1 GM in Premix Bag 1 BAG IV SCH (12:56)
[2019-10-15] MEDS: Pantoprazole 40 MG in Sodium Chloride 0.9% 10 ML IV SCH (19:18)
[2019-10-15] MEDS ORDERED: hydrALAZINE 25 MG Tab ONE (19:25)
[2019-10-15] MEDS: hydrALAZINE 25 MG Tab PO SCH ×2 (19:27→21:25)
[2019-10-15] MEDS: LORazepam 2 MG/ML SDV IVPUSH PRN (21:49)
[2019-10-16] MEDS: LORazepam 2 MG/ML SDV IVPUSH PRN ×2 (02:32→08:15)
[2019-10-16] MEDS: Insulin Aspart 100 Units/ML 3 ML Pen SUBCUT SCH ×2 (02:41→10:36)
[2019-10-16] MEDS: Sodium Chloride 0.9% 1,000 ML IV SCH (04:23)
[2019-10-16] MEDS: hydrALAZINE 25 MG Tab PO SCH ×2 (06:37→15:02)
[2019-10-16 07:52] LABS: CARBON DIOXIDE,CO2 23.3 mmol/L (21.0-32.0); POTASSIUM,K 3.8 mmol/L (3.5-5.1)
--- NOTE | 2019-10-16 08:37 | PN ---
THC Physician - Brief Progress [id number]/02/2020 08:22[facility] Danish Tavera, RAFAEL - ISIDORON (SHILOH) - ISIDORON MONIKDAWOOD JONES SusanneDate of Service 10/16/2019 08:22HPI/Events of Note eICU Progress [id number] M admitted with N/V, found to have hyperglycemia, ARF, and HTN urgency /emergency. Started on insulin drip, now off. On nicardipine drip, SBP 220 initially, now 140s. Se en on camera, comfortable. Creatinine better.eICU Recommendations:1. ARF- Creatinine improving, ? diabetic nephropathy with CKD. Avoid ACEI/ARB and diuretics for now.- Urinalysis fairly benign exce pt for minimal hematuria and proteinuria (which goes against glomerulonephritis), but CT abd/pelvis s howed possible pyelonephriitis and/or cystitis.2. HTN urgency.- Continue nicardipine drip, titrate off to keep SBP 150s (30% lower than admission BPs).- Suggest starting nifedipine ER 60mg PO daily.- Continue hydralazine and metoprolol XL, but suggest change latter to labetalol if BPs remain poorly controlled.- Suggest start workup for secondary causes of HTN, check serum aldosterone/renin activi ty ratio, TSH, free T4, plasma free metanephrines (if symptoms of pheochromocytoma present).3. Hyper glycemia- Anion gap normal- Suggest start Lantus with SS aspart.4. SIRS- WBC normal- Continue ce ftriaxone, deescalate depending on culture results.5. Prophylaxis.- PPI for GI prophylaxis.- SCDs for DVT prophylaxis. Thank you for allowing us to participate in the care of your patient.Interventi ons Major-Acute renal failure - evaluation and managementIntermediate-Communication with other health care providers and/or family, Hypertension - evaluation and management, Medication change / dose adju stment
[2019-10-16] MEDS: Metoprolol Succinate 100 MG Tab.ER PO SCH (08:39)
[2019-10-16 08:42] VITALS: PULSE 91
--- NOTE | 2019-10-16 10:45 | PN ---
THC Physician - Brief Progress [id number]/02/2020 10:44[facility] rayna DanishRAFAEL - BAHMAN (SHILOH) - DAWOOD LUNADate of Service 10/16/2019 10:44HPI/Events of Note K+ low, 20meq PO x 1 given.Interventions Intermediate-Communication with other healthcare pro viders and/or family, Diagnostic test evaluation, Electrolyte abnormality - evaluation and management
[2019-10-16] MEDS: cefTRIAXone 1 GM in Premix Bag 1 BAG IV SCH (12:22)
[2019-10-16 15:03] VITALS: BP 159/86
--- NOTE | 2019-10-16 15:24 | PCM.DCSUM1 ---
Discharge Summary - Discharge Data Discharge Date: 10/16/19 Discharge Disposition: Home, Self-Care 01 Condition: Stable - Referral to Home Health Primary Care Physician: PCP None - Patient Summary/Data Hospital Course: 34 year old male who past medical history of diabetes, who has had multiple admissions for gastroparesis, chronic abdominal pain, cyclic vomiting, and HTN He presented to the ER with diffuse abdominal pain, vomiting and diarrhea. In the ER, work up revealed chronic anemia but up from baseline with hemoglobin at 11.2, normal lactate, no white count. He was hyperglycemia with glucose of 871 but no anion gap acidosis. Troponin was negative, lipase was negative. CXR was negative, EKG showed sinus tachy but no ST elevation. CT ab/pelvis showed haziness around kidney with questionable pyelonephritis but no urinary symptoms and no sign of infection on UA. UDS was positive for marijuana. IN the ER his BP was elevated at 239/152. He was admitted and treated initiall with nsulin drip, IV nicardapine, IV fluids. His abdominal pain resolved and he was weaned of the drips. Today his is requesting discharge. He is to follow up with [facility] clinic. - Discharge Plan Home Medications: Home Meds RX: Doxazosin [Cardura] 4 mg PO BEDTIME 09/29/19 [History] RX: Metoprolol Succinate 200 mg PO DAILY 09/29/19 [History] RX: Torsemide 20 mg PO DAILY 09/29/19 [History] RX: atorvaSTATin [Lipitor] 80 mg PO BEDTIME 09/29/19 [History] RX: hydrALAZINE [Apresoline] 25 mg PO TID 09/29/19 [History] RX: Insulin Aspart [NovoLOG] 0 unit SUBCUT .UP TO 60 UN DAILY 09/30/19 [History] RX: Metoclopramide [Reglan] 5 mg PO TIDAC #90 tablet 10/10/19 [Rx] RX: Pantoprazole [ProTONIX] 40 mg PO DAILY #30 tab.cr 10/10/19 [Rx] RX: Insulin Glarg,Human.Rec.Analog [Lantus] 35 unit SUBCUT BEDTIME 10/14/19 [ History] Patient Handouts: Hyperglycemia, [id number], Abdominal Pain, Adult, Easy-to- Read, Hypertension Referrals: [facility] [Outside] Pete Ryan MD [Physician] - (You can go to [email or web address] or [email or web address] to request an appointment with psychiatry.) Fitz Infante MD [Physician] - (Please call [facility] on Thursday, October 17, 2019 to arrange for 1 week post-hospital follow-up appointment.) - Discharge Summary/Plan Comment DC Time >30 min.: No - Patient Data Vitals - Most Recent: Last Vital Signs Temp 36.8 C 10/16/19 08:00 Pulse 91 10/16/19 08:39 Resp 14 10/16/19 10:13 BP 159/86 H 10/16/19 15:02 Pulse Ox 96 10/16/19 10:13 Weight - Most Recent: 75.9 kg I&O - Last 24 hours: Intake & Output 10/16/19 10/16/19 10/16/19 06:59 14:59 22:59 Intake Total 50 Balance 50 Lab Results - Last 24 hrs: Laboratory Results - last 24 hr 10/15/19 10/15/19 10/16/19 Range/Units 15:34 21:22 02:36 WBC (4.0-11.0) K/uL RBC (4.50-5.90) M/uL Hgb (13.0-17.0) g/dL Hct (38.0-50.0) % MCV (80.0-98.0) fL MCH (27.0-32.0) pg MCHC (31.0-37.0) g/dL RDW Std Deviation (28.0-62.0) fl RDW Coeff of Dania (11.0-15.0) % Plt Count (150-400) K/uL MPV (7.40-12.00) fL Neut % (Auto) (48.0-80.0) % Lymph % (Auto) (16.0-40.0) % [place] % (Auto) (0.0-15.0) % Eos % (Auto) (0.0-7.0) % Baso % (Auto) (0.0-1.5) % Neut # (Auto) (1.4-5.7) K/uL Lymph # (Auto) (0.6-2.4) K/uL [place] # (Auto) (0.0-0.8) K/uL Eos # (Auto) (0.0-0.7) K/uL Baso # (Auto) (0.0-0.1) K/uL Nucleated RBC % /100WBC Nucleated RBCs # K/uL Sodium (136-148) mmol/L Potassium (3.5-5.1) mmol/L Chloride (98-107) mmol/L Carbon Dioxide (21.0-32.0) mmol/L BUN (7.0-18.0) mg/dL Creatinine (0.8-1.3) mg/dL Est Cr Clr Drug Dosing mL/min Estimated GFR (MDRD) ml/min Glucose (74-106) mg/dL POC Glucose 286 H 256 H 183 H (60-110) mg/dL Calcium (8.5-10.1) mg/dL 10/16/19 10/16/19 10/16/19 Range/Units 07:30 07:30 10:33 WBC 8.97 (4.0-11.0) K/uL RBC 4.23 L (4.50-5.90) M/uL Hgb 9.1 L (13.0-17.0) g/dL Hct 28.6 L (38.0-50.0) % MCV 67.6 L (80.0-98.0) fL MCH 21.5 L (27.0-32.0) pg MCHC 31.8 (31.0-37.0) g/dL RDW Std Deviation 39.8 (28.0-62.0) fl RDW Coeff of Dania 16 H (11.0-15.0) % Plt Count 327 (150-400) K/uL MPV 10.50 (7.40-12.00) fL Neut % (Auto) 66.2 (48.0-80.0) % Lymph % (Auto) 25.0 (16.0-40.0) % [place] % (Auto) 6.2 (0.0-15.0) % Eos % (Auto) 2.0 (0.0-7.0) % Baso % (Auto) 0.6 (0.0-1.5) % Neut # (Auto) 5.9 H (1.4-5.7) K/uL Lymph # (Auto) 2.2 (0.6-2.4) K/uL [place] # (Auto) 0.6 (0.0-0.8) K/uL Eos # (Auto) 0.2 (0.0-0.7) K/uL Baso # (Auto) 0.1 (0.0-0.1) K/uL Nucleated RBC % 0.0 /100WBC Nucleated RBCs # 0 K/uL Sodium 141 (136-148) mmol/L Potassium 3.8 (3.5-5.1) mmol/L Chloride 107 (98-107) mmol/L Carbon Dioxide 23.3 (21.0-32.0) mmol/L BUN 30 H (7.0-18.0) mg/dL Creatinine 2.2 H (0.8-1.3) mg/dL Est Cr Clr Drug Dosing 36.88 mL/min Estimated GFR (MDRD) 34.6 ml/min Glucose 313 H (74-106) mg/dL POC Glucose 382 H (60-110) mg/dL Calcium 7.9 L (8.5-10.1) mg/dL 10/16/19 Range/Units 12:43 WBC (4.0-11.0) K/uL RBC (4.50-5.90) M/uL Hgb (13.0-17.0) g/dL Hct (38.0-50.0) % MCV (80.0-98.0) fL MCH (27.0-32.0) pg MCHC (31.0-37.0) g/dL RDW Std Deviation (28.0-62.0) fl RDW Coeff of Dania (11.0-15.0) % Plt Count (150-400) K/uL MPV (7.40-12.00) fL Neut % (Auto) (48.0-80.0) % Lymph % (Auto) (16.0-40.0) % [place] % (Auto) (0.0-15.0) % Eos % (Auto) (0.0-7.0) % Baso % (Auto) (0.0-1.5) % Neut # (Auto) (1.4-5.7) K/uL Lymph # (Auto) (0.6-2.4) K/uL [place] # (Auto) (0.0-0.8) K/uL Eos # (Auto) (0.0-0.7) K/uL Baso # (Auto) (0.0-0.1) K/uL Nucleated RBC % /100WBC Nucleated RBCs # K/uL Sodium (136-148) mmol/L Potassium (3.5-5.1) mmol/L Chloride (98-107) mmol/L Carbon Dioxide (21.0-32.0) mmol/L BUN (7.0-18.0) mg/dL Creatinine (0.8-1.3) mg/dL Est Cr Clr Drug Dosing mL/min Estimated GFR (MDRD) ml/min Glucose (74-106) mg/dL POC Glucose 269 H (60-110) mg/dL Calcium (8.5-10.1) mg/dL Med Orders - Current: Current Medications Diphenhydramine HCl (Benadryl) 25 mg IVPUSH ONETIME PRN PRN Reason: antibiotic reaction Hydralazine HCl (Apresoline) 10 mg IVPUSH ONETIME PRN PRN Reason: Hypertension Last Admin: 10/15/19 04:55 Dose: 10 mg Hydralazine HCl (Apresoline) 25 mg PO TID MICHAEL Last Admin: 10/16/19 15:02 Dose: 25 mg Nicardipine HCl (Cardene 20 Mg In Ns 200 Ml) 20 mg in 200 mls @ 50 mls/hr IV TITRATE MICHAEL; Protocol Ceftriaxone Sodium/Dextrose 1 (gm/ Premix) 50 mls @ 100 mls/hr IV Q24H MICHAEL Last Admin: 10/16/19 12:22 Dose: 100 mls/hr Sodium Chloride (Normal Saline) 1,000 mls @ 75 mls/hr IV ASDIRECTED MICHAEL Last Admin: 10/16/19 04:23 Dose: 75 mls/hr Pantoprazole Sodium 40 mg/ (Sodium Chloride) 10 mls @ 300 mls/hr IV Q24H MICHAEL Insulin Aspart (Novolog) 0 unit SUBCUT Q6H MICHAEL; Protocol Last Admin: 10/16/19 10:36 Dose: 5 units Lorazepam (Ativan) 1 mg IVPUSH Q6H PRN PRN Reason: Anxiety Last Admin: 10/16/19 08:15 Dose: 1 mg Metoprolol Succinate (Toprol Xl) 200 mg PO DAILY MICHAEL Last Admin: 10/16/19 08:39 Dose: 200 mg Ondansetron HCl (Zofran) 4 mg IVPUSH Q4H PRN PRN Reason: Nausea/Vomiting Sodium Chloride (Saline Flush) 10 ml FLUSH ASDIRECTED PRN PRN Reason: Keep Vein Open Last Admin: 10/14/19 15:11 Dose: 10 ml Sodium Chloride (Saline Flush) 2.5 ml FLUSH ASDIRECTED PRN PRN Reason: Keep Vein Open Last Admin: 10/14/19 15:12 Dose: 2.5 ml Discontinued Medications Haloperidol (Haldol) 5 mg PO ONETIME ONE Stop: 10/14/19 18:04 Last Admin: 10/14/19 18:07 Dose: Not Given Haloperidol Lactate (Haldol) 1 mg IM ONETIME ONE Stop: 10/14/19 17:56 Last Admin: 10/14/19 19:57 Dose: Not Given Haloperidol Lactate (Haldol) 5 mg IM ONETIME ONE Stop: 10/14/19 18:06 Last Admin: 10/14/19 18:07 Dose: 5 mg Haloperidol Lactate (Haldol) 5 mg IM ONETIME ONE Stop: 10/14/19 19:16 Last Admin: 10/14/19 19:15 Dose: 5 mg Hydralazine HCl (Apresoline) 20 mg IVPUSH ONETIME ONE Stop: 10/14/19 17:34 Last Admin: 10/14/19 17:44 Dose: 20 mg Hydralazine HCl (Apresoline) Confirm Administered Dose 25 mg .ROUTE .STK-MED ONE Stop: 10/15/19 19:26 Last Admin: 10/15/19 19:36 Dose: Not Given Hydromorphone HCl (Dilaudid) 1 mg IVPUSH ONETIME ONE Stop: 10/14/19 15:03 Last Admin: 10/14/19 15:11 Dose: 1 mg Hydromorphone HCl (Dilaudid) 1 mg IVPUSH Q4H PRN PRN Reason: Pain (severe 7-10) Hydromorphone HCl (Dilaudid) 1 mg IVPUSH ONETIME ONE Stop: 10/14/19 18:12 Last Admin: 10/14/19 18:16 Dose: 1 mg Sodium Chloride (Normal Saline) 1,000 mls @ 999 mls/hr IV BOLUS ONE Stop: 10/14/19 15:48 Last Admin: 10/14/19 15:11 Dose: 999 mls/hr Insulin Human Regular 100 unit (/ Sodium Chloride) 100 mls @ 7.25 mls/hr IV TITRATE MICHAEL; Protocol Last Titration: 10/14/19 21:00 Dose: 0 units/kg/hr, 0 mls/hr Sodium Chloride (Normal Saline) 1,000 mls @ 999 mls/hr IV .Bolus ONE Stop: 10/14/19 17:55 Last Admin: 10/14/19 17:45 Dose: 999 mls/hr Potassium Chloride/Sodium Chloride (Normal Saline With 20 Meq Kcl) 1,000 mls @ 500 mls/hr IV ASDIRECTED MICHAEL Last Admin: 10/14/19 17:44 Dose: 500 mls/hr Pantoprazole Sodium 40 mg/ (Sodium Chloride) 10 mls @ 300 mls/hr IV Q24H MICHAEL Last Admin: 10/15/19 19:18 Dose: 300 mls/hr Sodium Chloride (Normal Saline) 1,000 mls @ 999 mls/hr IV .Bolus ONE Stop: 10/14/19 18:55 Last Admin: 10/14/19 20:09 Dose: 999 mls/hr Lactated Ringer's (Ringers, Lactated) 1,000 mls @ 75 mls/hr IV ASDIRECTED MICHAEL Last Admin: 10/14/19 23:11 Dose: 75 mls/hr Lorazepam (Ativan) Confirm Administered Dose 2 mg .ROUTE .STK-MED ONE Stop: 10/14/19 19:02 Last Admin: 10/14/19 20:00 Dose: Not Given Lorazepam (Ativan) 2 mg IVPUSH ONETIME ONE Stop: 10/14/19 19:16 Last Admin: 10/14/19 19:15 Dose: 2 mg Lorazepam (Ativan) 1 mg IVPUSH ONETIME ONE Stop: 10/15/19 08:53 Last Admin: 10/15/19 09:04 Dose: 1 mg Lorazepam (Ativan) 1 mg IVPUSH ONETIME ONE Stop: 10/15/19 14:20 Last Admin: 10/15/19 14:48 Dose: 1 mg Ondansetron HCl (Zofran) 4 mg IVPUSH ONETIME ONE Stop: 10/14/19 14:49 Last Admin: 10/14/19 15:11 Dose: 4 mg
[2019-10-16] MEDS ORDERED: Pantoprazole 40 MG in Sodium Chloride 0.9% 10 ML IV SCH (19:00)
== END 2019-10-16 15:25 | disposition home or self-care (01) ==
LOC: MW.ED 14:44 → MW.ICU 17:54
PROVIDERS: ADMIT Student in an Organized Health Care Education/Training Program; ATTEND Student in an Organized Health Care Education/Training Program
DX: E10.65 Type 1 diabetes mellitus with hyperglycemia (principal); G89.29 Other chronic pain; R10.10 Upper abdominal pain, unspecified; K21.9 Gastro-esophageal reflux disease without esophagitis; I16.1 Hypertensive emergency; I12.9 Hypertensive chronic kidney disease with stage 1 through stage 4 chronic kidney disease, or unspecified chronic kidney disease; N18.9 Chronic kidney disease, unspecified; E10.22 Type 1 diabetes mellitus with diabetic chronic kidney disease; E10.21 Type 1 diabetes mellitus with diabetic nephropathy; E10.40 Type 1 diabetes mellitus with diabetic neuropathy, unspecified; N17.9 Acute kidney failure, unspecified; Z79.4 Long term (current) use of insulin; Z91.013 Allergy to seafood; Z91.041 Radiographic dye allergy status; Z88.0 Allergy status to penicillin; Z91.018 Allergy to other foods; Z79.899 Other long term (current) drug therapy; Z91.14 Patient's other noncompliance with medication regimen
CPT/HCPCS: 36415; 71045; 74176; 80048; 80053; 80305; 81001; 82009; 82803; 82962; 83605; 83690; 84484; 85025; 87086; 93005; 96361; 96365; 96372; 96375; 96376; 99285; A9270; C9113; J0360; J0696; J1170; J1630; J1815; J2060; J2405; J3480; J7030; J7050; J7120; 96374; 99284; G0378

== ENCOUNTER 2019-11-03 14:17 | Emergency (ER) | payer SELFPAY ==
[2019-11-03] MEDS ORDERED: Ondansetron 4 MG/2 ML SDV IVPUSH ONE (14:28)
[2019-11-03] MEDS ORDERED: Pantoprazole 40 MG in Sodium Chloride 0.9% 20 ML IVPUSH ONE (14:29)
[2019-11-03] MEDS ORDERED: Sodium Chloride 0.9% 1,000 ML IV SCH (14:30)
[2019-11-03] MEDS ORDERED: Haloperidol Lactate 5 MG/ML SDV IM ONE (14:48)
[2019-11-03] MEDS ORDERED: diphenhydrAMINE 50 MG/ML SDV IVPUSH ONE ×2 (15:11→15:27)
[2019-11-03 15:16] LABS: BLOOD UREA NITROGEN,BUN 36 mg/dL (7.0-18.0); CARBON DIOXIDE,CO2 22.2 mmol/L (21.0-32.0); CHLORIDE,CL 109 mmol/L (98-107); GLUCOSE RANDOM 402 mg/dL (74-106); LIPASE 49 U/L (73-393); POTASSIUM,K 4.4 mmol/L (3.5-5.1); SODIUM,NA 145 mmol/L (136-148)
--- NOTE | 2019-11-03 15:24 | CR ---
Chest: Portable view of the chest was obtained. Comparison: Prior chest x-ray of 10/14/19. Heart size and mediastinum are normal. Lungs are clear. Bony structures appear within normal limits. Impression: 1. Nothing acute is appreciated on portable chest x-ray. Diagnostic code #1 This report was dictated in [place] Standard Time
--- NOTE | 2019-11-03 15:25 | EDM.PDOC ---
ED [facility] GENERAL MEDICAL PROBLEM - General Chief Complaint: Abdominal Pain Stated Complaint: stomach pain Time Seen by Provider: 11/03/19 15:22 Source of Information: Reports: Patient, Old Records History Limitations: Reports: No Limitations - History of Present Illness INITIAL COMMENTS - FREE TEXT/NARRATIVE: Is a 34-year-old male with past medical history of poorly controlled diabetes, gastroparesis, recurrent visits for abdominal pain and vomiting. Patient states he had abdominal pain which started this morning. Patient states pain is similar to prior episodes. Pain is located in epigastric region without radiation. Has associated nausea and vomiting. No fevers, diarrhea, constipation. Pmhx: Diabetes, gastroparesis Pshx: None Family Hx: noncontributory Smoking history? no Etoh use? none Drug use? Marijuana In addition to that documented in the HPI above, the additional ROS was obtained : Constitutional: Denies fevers or chills Eyes: Denies vision changes ENMT: Denies sore throat CV: Denies chest pain Resp: Denies SOB GI: Per HPI : Denies painful urination MSK: Denies recent trauma Skin: Denies new rashes Neuro: Denies new numbness or tingling or weakness Endocrine: Denies unexpected weight loss Heme: Denies bleeding disorders I have reviewed the triage vital signs Const: Rolling around in bed, yelling, vomited several times Eyes: PERRL, no conjunctival injection HENT: NCAT, Neck supple without meningismus CV: RRR, Warm, well-perfused extremities RESP: CTAB, Unlabored respiratory effort GI: soft, non-tender, non-distended, no masses MSK: No gross deformities appreciated Skin: Warm, dry. No rashes Neuro: Moving all 4 extremities equally. Psych: Agitated Assessment and plan: Patient is a 34-year-old male past medical history of diabetes and gastroparesis presenting with abdominal pain and vomiting. Patient given antiemetics and Haldol for nausea vomiting. Patient does not demonstrate any signs of acute abdomen on exam. Patient's vomiting significantly improved with Haldol. Patient is now tolerating p.o. liquids. Patient labs were reviewed. Patient is not in DKA. Patient has no significant electrolyte abnormalities. Patient observed in the emergency department and has not significantly more drowsy and is very comfortable in appearance. Patient will be discharged home with instructions for glucose management and primary care follow-up. Patient also educated not to use marijuana as it can lead to worsening of your vomiting. Patient's hypertension improved after administration of home medications. Patient is tolerating p.o. Patient sugar still elevated but not DKA. Patient educated to go home and take her medications. Abdomen Pain Score (Numeric/FACES): 9 - Related Data Allergies Allergy/AdvReac Type Severity Reaction Status Date / Time shrimp Allergy Severe Swelling Verified 11/03/19 14:26 iodine Allergy Unknown Anaphylactic Verified 11/03/19 14:26 Shock Penicillins Allergy Unknown Anaphylactic Verified 11/03/19 14:26 Shock shellfish derived Allergy Anaphylactic Verified 11/03/19 14:26 Shock gluten Allergy Unknown Muscle Uncoded 10/08/19 23:51 Aches Home Meds: Home Meds Doxazosin [Cardura] 4 mg PO BEDTIME 09/29/19 [History] Metoprolol Succinate 200 mg PO DAILY 09/29/19 [History] Torsemide 20 mg PO DAILY 09/29/19 [History] atorvaSTATin [Lipitor] 80 mg PO BEDTIME 09/29/19 [History] hydrALAZINE [Apresoline] 25 mg PO TID 09/29/19 [History] Insulin Aspart [NovoLOG] 0 unit SUBCUT .UP TO 60 UN DAILY 09/30/19 [History] Metoclopramide [Reglan] 5 mg PO TIDAC #90 tablet 10/10/19 [Rx] Pantoprazole [ProTONIX] 40 mg PO DAILY #30 tab.cr 10/10/19 [Rx] Insulin Glarg,Human.Rec.Analog [Lantus] 35 unit SUBCUT BEDTIME 10/14/19 [History ] Past Medical History - Past Health History Medical/Surgical History: Denies Medical/Surgical History HEENT History: Reports: Impaired Vision Other HEENT History: blind right eye Cardiovascular History: Reports: Hypertension Respiratory History: Reports: None Gastrointestinal History: Reports: Gastritis, GERD, Hiatal Hernia, Other (See Below) Other Gastrointestinal History: h/o gastric ulcers, h/o hiatal hernia; gastroparesis Genitourinary History: Reports: Chronic Renal Insuffiency, Diabetic Nephropathy Musculoskeletal History: Reports: Amputation Neurological History: Reports: Neuropathy, Peripheral Other Neuro History: stroke Psychiatric History: Reports: Anxiety Endocrine/Metabolic History: Reports: Diabetes, Type I Other Endocrine/Metabolic History: brittle diabetic. History of hyperkalemia and DKA Insulin Pump Model and Cranberry Grower: None Hematologic History: Reports: Anemia Immunologic History: Reports: None Oncologic (Cancer) History: Reports: None Dermatologic History: Reports: Other (See Below) Other Dermatologic History: diabetic foot ulcers - Infectious Disease History Infectious Disease History: Reports: Chicken Pox Other Infectious Disease History: 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 - Past Surgical History Head Surgeries/Procedures: Reports: None HEENT Surgical History: Reports: None Cardiovascular Surgical History: Reports: None Respiratory Surgical History: Reports: None GI Surgical History: Reports: None Male Surgical History: Reports: None Endocrine Surgical History: Reports: None Neurological Surgical History: Reports: None Musculoskeletal Surgical History: Reports: Other (See Below) Other Musculoskeletal Surgeries/Procedures:: right BKA Oncologic Surgical History: Reports: None Dermatological Surgical History: Reports: None Social & Family History - Family History Family Medical History: Noncontributory Cardiac: Reports: High Cholesterol, Hypertension OBGYN: Reports: Neurological: Reports: None Psychiatric: Reports: Anxiety - Tobacco Use Smoking Status *Q: Never Smoker Second Hand Smoke Exposure: No - Caffeine Use Caffeine Use: Reports: None Other Caffeine Use: daily Caffeine Use Comment: patient is uncooperated - Recreational Drug Use Recreational Drug Use: No - Living Situation & Occupation Living situation: Reports: Single Occupation: Employed (Currently unemployed.) ED ROS GENERAL - Review of Systems Review Of Systems: See Below ED EXAM, GI/ABD - Physical Exam Exam: See Below Course - Vital Signs Last Recorded V/S: Last Vital Signs Temp 36.0 C L 11/03/19 14:20 Pulse 106 H 11/03/19 18:36 Resp 16 11/03/19 17:31 BP 195/100 H 11/03/19 18:36 Pulse Ox 95 11/03/19 18:36 - Orders/Labs/Meds Orders: Active Orders 24 hr Category Date Time Status Sodium Chloride 0.9% [Normal Saline] 1,000 ml Med 11/03/19 14:30 Active IV ASDIRECTED Sodium Chloride 0.9% [Normal Saline] 1,000 ml Med 11/03/19 18:14 Active IV ONETIME Sodium Chloride 0.9% [Normal Saline] 1,000 ml Med 11/03/19 16:45 Active IV STAT Medication Orders Sodium Chloride (Normal Saline) 1,000 mls @ 999 mls/hr IV ASDIRECTED MICHAEL Last Admin: 11/03/19 14:42 Dose: 999 mls/hr Sodium Chloride (Normal Saline) 1,000 mls @ 999 mls/hr IV STAT MICHAEL Last Admin: 11/03/19 18:15 Dose: 999 mls/hr Infusion: 11/03/19 17:46 Dose: 999 mls/hr Admin: 11/03/19 16:45 Dose: 999 mls/hr Sodium Chloride (Normal Saline) 1,000 mls @ 999 mls/hr IV ONETIME ONE Stop: 11/03/19 19:14 Last Admin: 11/03/19 18:16 Dose: Not Given Labs: Laboratory Tests 11/03/19 11/03/19 11/03/19 Range/Units 14:28 14:28 14:28 WBC 12.48 H (4.0-11.0) K/uL RBC 4.76 (4.50-5.90) M/uL Hgb 10.2 L (13.0-17.0) g/dL Hct 32.5 L (38.0-50.0) % MCV 68.3 L (80.0-98.0) fL MCH 21.4 L (27.0-32.0) pg MCHC 31.4 (31.0-37.0) g/dL RDW Std Deviation 41.0 (28.0-62.0) fl RDW Coeff of Dania 17 H (11.0-15.0) % Plt Count 334 (150-400) K/uL MPV 9.80 (7.40-12.00) fL Neut % (Auto) 76.4 (48.0-80.0) % Lymph % (Auto) 18.6 (16.0-40.0) % [place] % (Auto) 3.5 (0.0-15.0) % Eos % (Auto) 1.1 (0.0-7.0) % Baso % (Auto) 0.4 (0.0-1.5) % Neut # (Auto) 9.5 H (1.4-5.7) K/uL Lymph # (Auto) 2.3 (0.6-2.4) K/uL [place] # (Auto) 0.4 (0.0-0.8) K/uL Eos # (Auto) 0.1 (0.0-0.7) K/uL Baso # (Auto) 0.1 (0.0-0.1) K/uL Nucleated RBC % 0.0 /100WBC Nucleated RBCs # 0 K/uL VBG pH 7.46 H (7.31-7.41) VBG pCO2 32 L (35-45) mmHG VBG pO2 87 H (30-40) mmHG VBG HCO3 23 (22-30) mEq/L VBG Total CO2 21 L (41-51) mmol/L VBG Base Excess -0.3 (-3.0-3.0) Sodium 145 (136-148) mmol/L Potassium 4.4 (3.5-5.1) mmol/L Chloride 109 H (98-107) mmol/L Carbon Dioxide 22.2 (21.0-32.0) mmol/L BUN 36 H (7.0-18.0) mg/dL Creatinine 2.2 H (0.8-1.3) mg/dL Est Cr Clr Drug Dosing TNP Estimated GFR (MDRD) 34.6 ml/min Glucose 402 H (74-106) mg/dL Calcium 8.6 (8.5-10.1) mg/dL Total Bilirubin 0.2 (0.2-1.0) mg/dL AST 41 H (15-37) IU/L ALT 43 (14-63) IU/L Alkaline Phosphatase 122 H (46-116) U/L Total Protein 6.5 (6.4-8.2) g/dL Albumin 2.4 L (3.4-5.0) g/dL Globulin 4.1 H (2.6-4.0) g/dL Albumin/Globulin Ratio 0.6 L (0.9-1.6) Lipase 49 L (73-393) U/L Ketones (NEG) 11/03/19 Range/Units 14:28 WBC (4.0-11.0) K/uL RBC (4.50-5.90) M/uL Hgb (13.0-17.0) g/dL Hct (38.0-50.0) % MCV (80.0-98.0) fL MCH (27.0-32.0) pg MCHC (31.0-37.0) g/dL RDW Std Deviation (28.0-62.0) fl RDW Coeff of Dania (11.0-15.0) % Plt Count (150-400) K/uL MPV (7.40-12.00) fL Neut % (Auto) (48.0-80.0) % Lymph % (Auto) (16.0-40.0) % [place] % (Auto) (0.0-15.0) % Eos % (Auto) (0.0-7.0) % Baso % (Auto) (0.0-1.5) % Neut # (Auto) (1.4-5.7) K/uL Lymph # (Auto) (0.6-2.4) K/uL [place] # (Auto) (0.0-0.8) K/uL Eos # (Auto) (0.0-0.7) K/uL Baso # (Auto) (0.0-0.1) K/uL Nucleated RBC % /100WBC Nucleated RBCs # K/uL VBG pH (7.31-7.41) VBG pCO2 (35-45) mmHG VBG pO2 (30-40) mmHG VBG HCO3 (22-30) mEq/L VBG Total CO2 (41-51) mmol/L VBG Base Excess (-3.0-3.0) Sodium (136-148) mmol/L Potassium (3.5-5.1) mmol/L Chloride (98-107) mmol/L Carbon Dioxide (21.0-32.0) mmol/L BUN (7.0-18.0) mg/dL Creatinine (0.8-1.3) mg/dL Est Cr Clr Drug Dosing Estimated GFR (MDRD) ml/min Glucose (74-106) mg/dL Calcium (8.5-10.1) mg/dL Total Bilirubin (0.2-1.0) mg/dL AST (15-37) IU/L ALT (14-63) IU/L Alkaline Phosphatase (46-116) U/L Total Protein (6.4-8.2) g/dL Albumin (3.4-5.0) g/dL Globulin (2.6-4.0) g/dL Albumin/Globulin Ratio (0.9-1.6) Lipase (73-393) U/L Ketones NEGATIVE (NEG) Meds: Medications Generic Name Dose Route Start Last Admin Trade Name Freq PRN Reason Stop Dose Admin Sodium Chloride 1,000 mls @ 999 mls/hr 11/03/19 14:30 11/03/19 14:42 Normal Saline IV 999 mls/hr ASDIRECTED MICHAEL Administration Sodium Chloride 1,000 mls @ 999 mls/hr 11/03/19 16:45 11/03/19 18:15 Normal Saline IV 999 mls/hr STAT MICHAEL Administration Sodium Chloride 1,000 mls @ 999 mls/hr 11/03/19 18:14 11/03/19 18:16 Normal Saline IV 11/03/19 19:14 Not Given ONETIME ONE Discontinued Medications Generic Name Dose Route Start Last Admin Trade Name Freq PRN Reason Stop Dose Admin Diphenhydramine HCl 50 mg 11/03/19 15:11 11/03/19 15:35 Benadryl IVPUSH 11/03/19 15:12 Not Given ONETIME ONE Diphenhydramine HCl 25 mg 11/03/19 15:27 11/03/19 15:35 Benadryl IVPUSH 11/03/19 15:28 25 mg ONETIME ONE Administration Haloperidol Lactate 5 mg 11/03/19 14:48 11/03/19 15:00 Haldol IM 11/03/19 14:49 5 mg ONETIME ONE Administration Pantoprazole Sodium 40 mg/ 20 mls @ 420 mls/hr 11/03/19 14:29 11/03/19 14:42 Sodium Chloride IVPUSH 11/03/19 14:31 420 mls/hr ONETIME ONE Administration Insulin Human Regular 6 unit 11/03/19 17:57 11/03/19 18:08 Novolin R IVPUSH 11/03/19 17:58 6 units ONETIME ONE Administration Protocol Metoprolol Tartrate 5 mg 11/03/19 17:31 11/03/19 17:47 Lopressor IVPUSH 11/03/19 17:32 5 mg ONETIME ONE Administration Ondansetron HCl 8 mg 11/03/19 14:28 11/03/19 14:42 Zofran IVPUSH 11/03/19 14:29 8 mg ONETIME ONE Administration Departure - Departure Time of Disposition: 16:30 Disposition: Home, Self-Care 01 Clinical Impression: Cyclical vomiting, Gastroparesis, Medical non-compliance - Discharge Information Instructions: Gastroparesis Referrals: PCP,None [Primary Care Provider] - Forms: ED Department Discharge Additional Instructions: The following information is given to patients seen in the emergency department who are being discharged to home. This information is to outline your options for follow-up care. We provide all patients seen in our emergency department with a follow-up referral. The need for follow-up, as well as the timing and circumstances, are variable depending upon the specifics of your emergency department visit. If you don't have a primary care physician on staff, we will provide you with a referral. We always advise you to contact your personal physician following an emergency department visit to inform them of the circumstance of the visit and for follow-up with them and/or the need for any referrals to a consulting specialist. The emergency department will also refer you to a specialist when appropriate. This referral assures that you have the opportunity for follow-up care with a specialist. All of these measure are taken in an effort to provide you with optimal care, which includes your follow-up. Under all circumstances we always encourage you to contact your private physician who remains a resource for coordinating your care. When calling for follow-up care, please make the office aware that this follow-up is from your recent emergency room visit. If for any reason you are refused follow-up, please contact the [facility] Emergency Department at and asked to speak to the emergency department charge nurse. Sepsis Event Note - Evaluation Sepsis Screening Result: Possible Sepsis Risk - Focused Exam Vital Signs: Vital Signs Temp Pulse Pulse Resp BP BP Pulse Ox 11/03/19 18:36 106 H 195/100 H 95 11/03/19 18:11 110 H 217/119 H 97 11/03/19 17:47 122 H 217/119 H 11/03/19 17:31 118 H 16 216/131 H 95 11/03/19 17:20 111 H 204/98 H 97 11/03/19 17:07 114 H 18 200/111 H 96 11/03/19 16:28 117 H 198/121 H 11/03/19 14:34 234/147 H 02/20/20 14:20 36.0 C L 126 H 24 H 212/130 H 98 11/03/19 14:17 120 H 212/130 H Date Exam was Performed: 11/03/19 Time Exam was Performed: 18:53 - My Orders Last 24 Hours: My Active Orders 11/03/19 14:30 Sodium Chloride 0.9% [Normal Saline] 1,000 ml IV ASDIRECTED 11/03/19 16:45 Sodium Chloride 0.9% [Normal Saline] 1,000 ml IV STAT 11/03/19 18:14 Sodium Chloride 0.9% [Normal Saline] 1,000 ml IV ONETIME - Assessment/Plan Last 24 Hours: My Active Orders 11/03/19 14:30 Sodium Chloride 0.9% [Normal Saline] 1,000 ml IV ASDIRECTED 11/03/19 16:45 Sodium Chloride 0.9% [Normal Saline] 1,000 ml IV STAT 11/03/19 18:14 Sodium Chloride 0.9% [Normal Saline] 1,000 ml IV ONETIME
[2019-11-03] MEDS: Sodium Chloride 0.9% 1,000 ML IV SCH ×2 (16:45→18:15)
[2019-11-03] MEDS ORDERED: Metoprolol Tartrate 5 MG/5 ML SDV IVPUSH ONE (17:31)
[2019-11-03] MEDS ORDERED: Insulin Regular, Human 100 Units/ML 10 ML Vial IVPUSH ONE (17:57)
[2019-11-03] MEDS ORDERED: Sodium Chloride 0.9% 1,000 ML IV ONE (18:14)
[2019-11-03 19:03] VITALS: BP 182/103; PULSE 104
== END 2019-11-03 18:58 | disposition home or self-care (01) ==
LOC: MW.ED 14:17
DX: K31.84 Gastroparesis (principal); R11.15 Cyclical vomiting syndrome unrelated to migraine; E10.10 Type 1 diabetes mellitus with ketoacidosis without coma; I10 Essential (primary) hypertension; Z79.899 Other long term (current) drug therapy; Z88.0 Allergy status to penicillin; Z88.8 Allergy status to other drugs, medicaments and biological substances; Z91.013 Allergy to seafood; Z79.4 Long term (current) use of insulin
CPT/HCPCS: 36415; 71045; 80053; 82009; 82803; 83690; 85025; 96361; 96372; 96374; 96375; 99284; C9113; J1200; J1630; J2405; J3490; J7030; J1815-GY

== ENCOUNTER 2019-11-20 19:36 | Emergency (ER) | payer SELFPAY ==
[2019-11-20] MEDS ORDERED: Promethazine 25 MG/ML SDV IM ONE (20:01)
--- NOTE | 2019-11-20 20:05 | EDM.PDOC ---
ED HPI GENERAL MEDICAL PROBLEM - General Chief Complaint: Abdominal Pain Stated Complaint: VOMITTING FOR 2 DAYS Time Seen by Provider: 11/20/19 19:50 Source of Information: Reports: Patient - History of Present Illness INITIAL COMMENTS - FREE TEXT/NARRATIVE: The patient is a 34-year-old diabetic with gastroparesis who presents to the ER complaining of nonbloody vomiting and abdominal pain. He has had this numerous times before. He states that he was prescribed Reglan doctor does not want him taking it anymore secondary to neurological side effects (anxiety, akathisia, etc.). He does have Zofran tablets at home but they are not helping. No fevers , no diarrhea, no other acute complaints. abdominal pain Pain Score (Numeric/FACES): 8 - Related Data Allergies Allergy/AdvReac Type Severity Reaction Status Date / Time shrimp Allergy Severe Swelling Verified 11/03/19 14:26 iodine Allergy Unknown Anaphylactic Verified 11/03/19 14:26 Shock Penicillins Allergy Unknown Anaphylactic Verified 11/03/19 14:26 Shock metoclopramide [From Reglan] Allergy Facial Verified 11/20/19 19:49 Spasms shellfish derived Allergy Anaphylactic Verified 11/03/19 14:26 Shock gluten Allergy Unknown Muscle Uncoded 10/08/19 23:51 Aches Home Meds: Home Meds Doxazosin [Cardura] 4 mg PO BEDTIME 09/29/19 [History] Metoprolol Succinate 200 mg PO DAILY 09/29/19 [History] Torsemide 20 mg PO DAILY 09/29/19 [History] atorvaSTATin [Lipitor] 80 mg PO BEDTIME 09/29/19 [History] hydrALAZINE [Apresoline] 25 mg PO TID 09/29/19 [History] Insulin Aspart [NovoLOG] 0 unit SUBCUT .UP TO 60 UN DAILY 09/30/19 [History] Metoclopramide [Reglan] 5 mg PO TIDAC #90 tablet 10/10/19 [Rx] Pantoprazole [ProTONIX] 40 mg PO DAILY #30 tab.cr 10/10/19 [Rx] Insulin Glarg,Human.Rec.Analog [Lantus] 35 unit SUBCUT BEDTIME 10/14/19 [History ] Past Medical History - Past Health History Medical/Surgical History: Denies Medical/Surgical History HEENT History: Reports: Impaired Vision Other HEENT History: blind right eye Cardiovascular History: Reports: Hypertension Respiratory History: Reports: None Gastrointestinal History: Reports: Gastritis, GERD, Hiatal Hernia, Other (See Below) Other Gastrointestinal History: h/o gastric ulcers, h/o hiatal hernia; gastroparesis Genitourinary History: Reports: Chronic Renal Insuffiency, Diabetic Nephropathy Musculoskeletal History: Reports: Amputation Neurological History: Reports: Neuropathy, Peripheral Other Neuro History: stroke Psychiatric History: Reports: Anxiety Endocrine/Metabolic History: Reports: Diabetes, Type I Other Endocrine/Metabolic History: brittle diabetic. History of hyperkalemia and DKA Insulin Pump Model and Assistant Buyer: None Hematologic History: Reports: Anemia Immunologic History: Reports: None Oncologic (Cancer) History: Reports: None Dermatologic History: Reports: Other (See Below) Other Dermatologic History: diabetic foot ulcers - Infectious Disease History Infectious Disease History: Reports: Chicken Pox Other Infectious Disease History: 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 - Past Surgical History Head Surgeries/Procedures: Reports: None HEENT Surgical History: Reports: None Cardiovascular Surgical History: Reports: None Respiratory Surgical History: Reports: None GI Surgical History: Reports: None Male Surgical History: Reports: None Endocrine Surgical History: Reports: None Neurological Surgical History: Reports: None Musculoskeletal Surgical History: Reports: Other (See Below) Other Musculoskeletal Surgeries/Procedures:: right BKA Oncologic Surgical History: Reports: None Dermatological Surgical History: Reports: None Social & Family History - Family History Family Medical History: Noncontributory Cardiac: Reports: High Cholesterol, Hypertension OBGYN: Reports: Neurological: Reports: None Psychiatric: Reports: Anxiety - Tobacco Use Smoking Status *Q: Former Smoker Used Tobacco, but Quit: Yes Month/Year Tobacco Last Used: 2015 - Caffeine Use Caffeine Use: Reports: Coffee Other Caffeine Use: daily Caffeine Use Comment: patient is uncooperated - Recreational Drug Use Recreational Drug Use: Yes Drug Use in Last 12 Months: Yes Recreational Drug Type: Reports: Marijuana/Hashish Recreational Drug Use Frequency: Weekly - Living Situation & Occupation Living situation: Reports: Single Occupation: Employed (Currently unemployed.) ED ROS GENERAL - Review of Systems Review Of Systems: See Below (Positive for abdominal pain, positive vomiting, negative for fevers, negative diarrhea, all other Positives and pertinent negatives as per HPI. All other pertinent systems were reviewed and are negative ) ED EXAM, GI/ABD - Physical Exam Exam: See Below Text/Narrative:: Constitutional: Nontoxic, deconditioned, tearful, nonketotic HEENT.: Normocephalic, Atraumatic, PERRL, EOMI, External ears are atraumatic, Oropharynx clear and moist without lesions or masses, nares are patent without epistaxis Neck: Normal range of motion, Trachea Midline, No stridor Respiratory.: No respiratory distress, No tachypnea, Lungs Clear to Auscultation bilaterally without wheezes, rales, or rhonchi Cardiovascular.: Tachycardic rate and Rhythm without murmurs, rubs, or gallops , good peripheral perfusion GI: Abdomen soft and nondistended, difficult exam as the patient whimpers with minimal palpation Genital Urinary: Deferred Musculoskeletal: Good range of motion. All 4 extremities present and atraumatic , no edema Back: Full Range of Motion Skin: Warm, Dry, Color is ethnicity appropriate, No acute rash. Lymphatic: No lymphadenopathy noted Neurological: Alert, Awake and oriented x 3, No focal deficits noted appreciate , GCS 15 Psych: Not psychotic, agitated, but cooperative Course - Vital Signs Text/Narrative:: The patient's mild tachycardia is noted but looking through the records this is not unusual for him. The same for the hypertension. The patient has a known and documented history of noncompliance. I talked to the patient in detail about treatment for gastroparesis as he apparently has never had any stimulators , surgical procedures, etc. so there is still numerous options open. I have also looked through the records and narcotics are not indicated for gastroparesis and neither are benzodiazepines. I also, at this time do not feel that the patient is in diabetic ketoacidosis. I offered the patient a Phenergan 25 mg IM injection and a prescription for Phenergan suppositories and he agrees with this treatment without any lab work. I wrote a hand prescription for Phenergan 25 mg suppositories after we gave him 1 dose here in the ER and to 12.5 mg rectal suppositories to go home with. Last Recorded V/S: Last Vital Signs Temp 36.4 C 11/20/19 19:47 Pulse 120 H 11/20/19 19:47 Resp 18 11/20/19 19:47 BP 225/138 H 11/20/19 19:47 Pulse Ox 100 11/20/19 19:47 - Orders/Labs/Meds Meds: Medications Discontinued Medications Generic Name Dose Route Start Last Admin Trade Name Lynn PRErika Reason Stop Dose Admin Promethazine HCl 25 mg 11/20/19 20:01 11/20/19 20:22 Phenergan IM 11/20/19 20:02 25 mg ONETIME ONE Administration Promethazine HCl 25 mg 11/20/19 20:16 Phenadoz RECTAL 11/20/19 20:17 ONETIME ONE Departure - Departure Time of Disposition: 20:04 Disposition: Home, Self-Care 01 Condition: Good Clinical Impression: Vomiting - Discharge Information Instructions: Nausea and Vomiting, Adult, [id number] Referrals: PCP,None [Primary Care Provider] - Forms: ED Department Discharge Additional Instructions: The following information is given to patients seen in the emergency department who are being discharged to home. This information is to outline your options for follow-up care. We provide all patients seen in our emergency department with a follow-up referral. The need for follow-up, as well as the timing and circumstances, are variable depending upon the specifics of your emergency department visit. If you don't have a primary care physician on staff, we will provide you with a referral. We always advise you to contact your personal physician following an emergency department visit to inform them of the circumstance of the visit and for follow-up with them and/or the need for any referrals to a consulting specialist. The emergency department will also refer you to a specialist when appropriate. This referral assures that you have the opportunity for follow-up care with a specialist. All of these measure are taken in an effort to provide you with optimal care, which includes your follow-up. Under all circumstances we always encourage you to contact your private physician who remains a resource for coordinating your care. When calling for follow-up care, please make the office aware that this follow-up is from your recent emergency room visit. If for any reason you are refused follow-up, please contact the [facility] Emergency Department at and asked to speak to the emergency department charge nurse. [facility] [address] [place] [id number] [facility] [address] [place] [address] Follow-up with the specialists as we discussed because there are still multiple treatments for gastroparesis that you have not had yet. Sepsis Event Note - Evaluation Sepsis Screening Result: No Definite Risk - Focused Exam Vital Signs: Vital Signs Temp Pulse Resp BP Pulse Ox 11/20/19 19:47 36.4 C 120 H 18 225/138 H 100 Date Exam was Performed: 11/20/19 Time Exam was Performed: 20:28
[2019-11-20] MEDS ORDERED: Promethazine 12.5 MG Supp RECTAL ONE (20:16)
[2019-11-20 20:49] VITALS: BP 173/114; PULSE 106
== END 2019-11-20 20:49 | disposition home or self-care (01) ==
LOC: MW.ED 19:36
DX: R11.10 Vomiting, unspecified (principal); R10.9 Unspecified abdominal pain; K21.9 Gastro-esophageal reflux disease without esophagitis; I12.9 Hypertensive chronic kidney disease with stage 1 through stage 4 chronic kidney disease, or unspecified chronic kidney disease; N18.9 Chronic kidney disease, unspecified; E10.21 Type 1 diabetes mellitus with diabetic nephropathy; E10.22 Type 1 diabetes mellitus with diabetic chronic kidney disease; E10.621 Type 1 diabetes mellitus with foot ulcer; Z91.013 Allergy to seafood; Z88.0 Allergy status to penicillin; Z88.8 Allergy status to other drugs, medicaments and biological substances; Z91.048 Other nonmedicinal substance allergy status; Z79.899 Other long term (current) drug therapy; Z79.4 Long term (current) use of insulin; Z87.891 Personal history of nicotine dependence
CPT/HCPCS: 99283; A9270; J2550

== ENCOUNTER 2019-11-20 23:49 | Emergency (ER) | payer SELFPAY ==
[2019-11-21] MEDS ORDERED: Sodium Chloride 0.9% 1,000 ML IV ONE (00:08)
[2019-11-21] MEDS ORDERED: Sodium Chloride 0.9% 10 ML Syringe FLUSH PRN (00:08)
[2019-11-21] MEDS ORDERED: Sodium Chloride 0.9% 2.5 ML Syringe FLUSH PRN (00:08)
[2019-11-21] MEDS ORDERED: Ondansetron 4 MG/2 ML SDV IVPUSH ONE (00:08)
--- NOTE | 2019-11-21 00:36 | EDM.PDOC ---
ED HPI GENERAL MEDICAL PROBLEM - General Chief Complaint: Gastrointestinal Problem Stated Complaint: VOMITING Time Seen by Provider: 11/21/19 00:05 Source of Information: Reports: Patient - History of Present Illness INITIAL COMMENTS - FREE TEXT/NARRATIVE: The patient is a 34-year-old male with diabetes and gastroparesis who presents to the ER for the second time tonight for abdominal pain and nausea and vomiting. Please see my previous charting on this patient but he states that the Phenergan that I prescribed him is not helping and he is still having severe abdominal pain. No fevers, no other acute complaints. abd Pain Score (Numeric/FACES): 8 - Related Data Allergies Allergy/AdvReac Type Severity Reaction Status Date / Time shrimp Allergy Severe Swelling Verified 11/03/19 14:26 iodine Allergy Unknown Anaphylactic Verified 11/03/19 14:26 Shock Penicillins Allergy Unknown Anaphylactic Verified 11/03/19 14:26 Shock metoclopramide [From Reglan] Allergy Facial Verified 11/21/19 00:13 Spasms shellfish derived Allergy Anaphylactic Verified 11/03/19 14:26 Shock gluten Allergy Unknown Muscle Uncoded 10/08/19 23:51 Aches Home Meds: Home Meds Doxazosin [Cardura] 4 mg PO BEDTIME 09/29/19 [History] Metoprolol Succinate 200 mg PO DAILY 09/29/19 [History] Torsemide 20 mg PO DAILY 09/29/19 [History] atorvaSTATin [Lipitor] 80 mg PO BEDTIME 09/29/19 [History] hydrALAZINE [Apresoline] 25 mg PO TID 09/29/19 [History] Insulin Aspart [NovoLOG] 0 unit SUBCUT .UP TO 60 UN DAILY 09/30/19 [History] Metoclopramide [Reglan] 5 mg PO TIDAC #90 tablet 10/10/19 [Rx] Pantoprazole [ProTONIX] 40 mg PO DAILY #30 tab.cr 10/10/19 [Rx] Insulin Glarg,Human.Rec.Analog [Lantus] 35 unit SUBCUT BEDTIME 10/14/19 [History ] Past Medical History - Past Health History Medical/Surgical History: Denies Medical/Surgical History HEENT History: Reports: Impaired Vision Other HEENT History: blind right eye Cardiovascular History: Reports: Hypertension Respiratory History: Reports: None Gastrointestinal History: Reports: Gastritis, GERD, Hiatal Hernia, Other (See Below) Other Gastrointestinal History: h/o gastric ulcers, h/o hiatal hernia; gastroparesis Genitourinary History: Reports: Chronic Renal Insuffiency, Diabetic Nephropathy Musculoskeletal History: Reports: Amputation Neurological History: Reports: Neuropathy, Peripheral Other Neuro History: stroke Psychiatric History: Reports: Anxiety Endocrine/Metabolic History: Reports: Diabetes, Type I Other Endocrine/Metabolic History: brittle diabetic. History of hyperkalemia and DKA Insulin Pump Model and Technical Implementation Lead: None Hematologic History: Reports: Anemia Immunologic History: Reports: None Oncologic (Cancer) History: Reports: None Dermatologic History: Reports: Other (See Below) Other Dermatologic History: diabetic foot ulcers - Infectious Disease History Infectious Disease History: Reports: Chicken Pox Other Infectious Disease History: 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 - Past Surgical History Head Surgeries/Procedures: Reports: None HEENT Surgical History: Reports: None Cardiovascular Surgical History: Reports: None Respiratory Surgical History: Reports: None GI Surgical History: Reports: None Male Surgical History: Reports: None Endocrine Surgical History: Reports: None Neurological Surgical History: Reports: None Musculoskeletal Surgical History: Reports: Other (See Below) Other Musculoskeletal Surgeries/Procedures:: right BKA Oncologic Surgical History: Reports: None Dermatological Surgical History: Reports: None Social & Family History - Family History Family Medical History: Noncontributory Cardiac: Reports: High Cholesterol, Hypertension OBGYN: Reports: Neurological: Reports: None Psychiatric: Reports: Anxiety - Tobacco Use Smoking Status *Q: Never Smoker - Caffeine Use Caffeine Use: Reports: Coffee Other Caffeine Use: daily Caffeine Use Comment: patient is uncooperated - Living Situation & Occupation Living situation: Reports: Single Occupation: Employed (Currently unemployed.) ED ROS GENERAL - Review of Systems Review Of Systems: See Below (Positive for nausea and vomiting, positive for abdominal pain, negative for diarrhea, negative for fevers, insert review of systems) ED EXAM, GI/ABD - Physical Exam Exam: See Below Text/Narrative:: Constitutional: Nontoxic, mildly disheveled, acute distress HEENT.: Normocephalic, Atraumatic, PERRL, EOMI, External ears are atraumatic, Oropharynx clear and moist without lesions or masses, nares are patent without epistaxis Neck: Normal range of motion, Trachea Midline, No stridor Respiratory.: No respiratory distress, No tachypnea, Lungs Clear to Auscultation bilaterally without wheezes, rales, or rhonchi Cardiovascular.: Tachycardic rate and Rhythm without murmurs, rubs, or gallops , good peripheral perfusion GI: Abdomen soft and nondistended, exam is unchanged from the previous with nonspecific abdominal tenderness to even minimal palpation Genital Urinary: Deferred Musculoskeletal: Good range of motion. All 4 extremities present and atraumatic , no edema Back: Full Range of Motion Skin: Warm, Dry, Color is ethnicity appropriate, No acute rash. Lymphatic: No lymphadenopathy noted Neurological: Alert, Awake and oriented x 3, No focal deficits noted appreciate , GCS 15 Psych: Agitated but cooperative, not psychotic Course - Vital Signs Text/Narrative:: Given that this is the patient's second visit within several hours we will obtain standard abdominal lab work. I have already informed the patient that given that he has been to the ER for this numerous times I do not feel that any imaging is required. I once again stressed specialist follow-up. It is noted that the patient has changed her story several times telling nursing staff that he was told not to see a specialist -seems counterintuitive. Specifically asked for "pain meds" when I informed the patient that gastroparesis is not treated with opioids, he then stated that the nurse practitioners on the floors when he has been admitted to the hospital in the past spoke with the specialist in [place] and they were told that he should have his pain treated aggressively before his other antiemetics would work. He then stated that he is not here looking for pain medications and that is when I pointed out that he just specifically asked me for opioids. The patient did not have a ketotic odor but I initially ordered serum ketones anyways. When the labs came out, I was contacted because this particular test is a send out to this facility but given that the patient's CO2/bicarb is normal , he is no ketotic odor, and his glucose is only 237 as my initial impression when I first saw the patient he is not in DKA so this lab has been canceled. Thus, given the entire clinical scenario I am not concerned about any emergency processes such as adult introsusception, volvulus, appendicitis, perforated ulcer, pancreatitis, aortic dissection, etc. and after waking up the patient from a deep sleep in his room I have informed him that he will be discharged and he needs to follow-up with a specialist. Then receiving 1 dose of IV Zofran in the ER and some fluids he was not given anything else. No other prescriptions will be provided. Last Recorded V/S: Last Vital Signs Temp 36.7 C 11/20/19 23:55 Pulse 102 H 11/21/19 00:30 Resp 18 11/21/19 00:30 BP 188/121 H 11/20/19 23:55 Pulse Ox 94 L 11/21/19 00:30 - Orders/Labs/Meds Orders: Active Orders 24 hr Category Date Time Status Sodium Chloride 0.9% [Saline Flush] Med 11/21/19 00:08 Active 10 ml FLUSH ASDIRECTED PRN Sodium Chloride 0.9% [Saline Flush] Med 11/21/19 00:08 Active 2.5 ml FLUSH ASDIRECTED PRN Saline Lock Insert [OM.PC] Stat Oth 11/21/19 00:08 Ordered Medication Orders Sodium Chloride (Saline Flush) 10 ml FLUSH ASDIRECTED PRN PRN Reason: Keep Vein Open Last Admin: 11/21/19 00:31 Dose: 10 ml Sodium Chloride (Saline Flush) 2.5 ml FLUSH ASDIRECTED PRN PRN Reason: Keep Vein Open Last Admin: 11/21/19 00:31 Dose: 2.5 ml Labs: Laboratory Tests 11/21/19 11/21/19 Range/Units 00:25 00:25 WBC 10.00 (4.0-11.0) K/uL RBC 4.44 L (4.50-5.90) M/uL Hgb 9.6 L (13.0-17.0) g/dL Hct 29.4 L (38.0-50.0) % MCV 66.2 L (80.0-98.0) fL MCH 21.6 L (27.0-32.0) pg MCHC 32.7 (31.0-37.0) g/dL RDW Std Deviation 38.4 (28.0-62.0) fl RDW Coeff of Dania 16 H (11.0-15.0) % Plt Count 314 (150-400) K/uL MPV 10.60 (7.40-12.00) fL Neut % (Auto) 81.0 H (48.0-80.0) % Lymph % (Auto) 12.2 L (16.0-40.0) % [place] % (Auto) 5.6 (0.0-15.0) % Eos % (Auto) 0.2 (0.0-7.0) % Baso % (Auto) 1.0 (0.0-1.5) % Neut # (Auto) 8.1 H (1.4-5.7) K/uL Lymph # (Auto) 1.2 (0.6-2.4) K/uL [place] # (Auto) 0.6 (0.0-0.8) K/uL Eos # (Auto) 0.0 (0.0-0.7) K/uL Baso # (Auto) 0.1 (0.0-0.1) K/uL Sodium 140 (136-148) mmol/L Potassium 4.2 (3.5-5.1) mmol/L Chloride 105 (98-107) mmol/L Carbon Dioxide 22.1 (21.0-32.0) mmol/L BUN 41 H (7.0-18.0) mg/dL Creatinine 2.5 H (0.8-1.3) mg/dL Est Cr Clr Drug Dosing 40.66 mL/min Estimated GFR (MDRD) 36.2 ml/min Glucose 237 H (74-106) mg/dL Calcium 8.6 (8.5-10.1) mg/dL Total Bilirubin 0.2 (0.2-1.0) mg/dL AST 28 (15-37) IU/L ALT 32 (14-63) IU/L Alkaline Phosphatase 96 (46-116) U/L Total Protein 5.9 L (6.4-8.2) g/dL Albumin 2.2 L (3.4-5.0) g/dL Globulin 3.7 (2.6-4.0) g/dL Albumin/Globulin Ratio 0.6 L (0.9-1.6) Lipase 34 L (73-393) U/L Meds: Medications Generic Name Dose Route Start Last Admin Trade Name Freq PRN Reason Stop Dose Admin Sodium Chloride 10 ml 11/21/19 00:08 11/21/19 00:31 Saline Flush FLUSH 10 ml ASDIRECTED PRN Administration Keep Vein Open Sodium Chloride 2.5 ml 11/21/19 00:08 11/21/19 00:31 Saline Flush FLUSH 2.5 ml ASDIRECTED PRN Administration Keep Vein Open Discontinued Medications Generic Name Dose Route Start Last Admin Trade Name Freq PRN Reason Stop Dose Admin Sodium Chloride 1,000 mls @ 999 mls/hr 11/21/19 00:08 11/21/19 00:30 Normal Saline IV 11/21/19 01:08 999 mls/hr BOLUS ONE Administration Ondansetron HCl 4 mg 11/21/19 00:08 11/21/19 00:31 Zofran IVPUSH 11/21/19 00:09 4 mg ONETIME ONE Administration Departure - Departure Time of Disposition: 01:11 Disposition: Home, Self-Care 01 Condition: Good Clinical Impression: Abdominal pain Qualifiers: Abdominal location: upper abdomen, unspecified Qualified Code(s): R10.10 - Upper abdominal pain, unspecified - Discharge Information Referrals: PCP,None [Primary Care Provider] - Forms: ED Department Discharge Additional Instructions: Continue your previous instructions. Sepsis Event Note - Evaluation Sepsis Screening Result: No Definite Risk - Focused Exam Vital Signs: Vital Signs Temp Pulse Resp BP Pulse Ox 11/21/19 00:30 102 H 18 94 L 11/20/19 23:55 36.7 C 114 H 18 188/121 H 98 Date Exam was Performed: 11/21/19 Time Exam was Performed: 01:09 - My Orders Last 24 Hours: My Active Orders 11/21/19 00:08 Sodium Chloride 0.9% [Saline Flush] 10 ml FLUSH ASDIRECTED PRN Sodium Chloride 0.9% [Saline Flush] 2.5 ml FLUSH ASDIRECTED PRN Saline Lock Insert [OM.PC] Stat - Assessment/Plan Last 24 Hours: My Active Orders 11/21/19 00:08 Sodium Chloride 0.9% [Saline Flush] 10 ml FLUSH ASDIRECTED PRN Sodium Chloride 0.9% [Saline Flush] 2.5 ml FLUSH ASDIRECTED PRN Saline Lock Insert [OM.PC] Stat
[2019-11-21 00:57] LABS: CARBON DIOXIDE,CO2 22.1 mmol/L (21.0-32.0); POTASSIUM,K 4.2 mmol/L (3.5-5.1)
[2019-11-21 01:16] VITALS: BP 184/109; PULSE 103
== END 2019-11-21 01:22 | disposition home or self-care (01) ==
LOC: MW.ED 23:49
DX: R10.10 Upper abdominal pain, unspecified (principal); R11.2 Nausea with vomiting, unspecified; K21.9 Gastro-esophageal reflux disease without esophagitis; I12.9 Hypertensive chronic kidney disease with stage 1 through stage 4 chronic kidney disease, or unspecified chronic kidney disease; N18.9 Chronic kidney disease, unspecified; E10.21 Type 1 diabetes mellitus with diabetic nephropathy; E10.42 Type 1 diabetes mellitus with diabetic polyneuropathy; Z91.013 Allergy to seafood; Z88.0 Allergy status to penicillin; Z88.8 Allergy status to other drugs, medicaments and biological substances; Z91.048 Other nonmedicinal substance allergy status; Z79.899 Other long term (current) drug therapy
CPT/HCPCS: 36415; 80053; 83690; 85025; 96361; 96374; 99284; J2405; J7030; 99283

== ENCOUNTER 2019-11-21 03:45 | Emergency (ER) | payer SELFPAY ==
[2019-11-21 03:52] VITALS: BP 213/135; PULSE 120
--- NOTE | 2019-11-21 04:11 | EDM.PDOC ---
ED HPI GENERAL MEDICAL PROBLEM - General Chief Complaint: Gastrointestinal Problem Stated Complaint: VOMITTING, CANT KEEPT ANYTHING DOWN Time Seen by Provider: 11/21/19 04:01 Source of Information: Reports: Patient - History of Present Illness INITIAL COMMENTS - FREE TEXT/NARRATIVE: 34-year-old male with a history of diabetes and gastroparesis presents to the ER for the third time this shift with the same complaint. Please see my previous dictation. Nothing has changed. After I woke up the patient from his deep sleep and discharged him home he said he went home and went to sleep and he woke up in severe pain again and is demanding analgesics. Upper Abdomen Pain Score (Numeric/FACES): 10 - Related Data Allergies Allergy/AdvReac Type Severity Reaction Status Date / Time shrimp Allergy Severe Swelling Verified 11/03/19 14:26 iodine Allergy Unknown Anaphylactic Verified 11/03/19 14:26 Shock Penicillins Allergy Unknown Anaphylactic Verified 11/03/19 14:26 Shock metoclopramide [From Reglan] Allergy Facial Verified 11/21/19 00:13 Spasms shellfish derived Allergy Anaphylactic Verified 11/03/19 14:26 Shock gluten Allergy Unknown Muscle Uncoded 10/08/19 23:51 Aches Home Meds: Home Meds Doxazosin [Cardura] 4 mg PO BEDTIME 09/29/19 [History] Metoprolol Succinate 200 mg PO DAILY 09/29/19 [History] Torsemide 20 mg PO DAILY 09/29/19 [History] atorvaSTATin [Lipitor] 80 mg PO BEDTIME 09/29/19 [History] hydrALAZINE [Apresoline] 25 mg PO TID 09/29/19 [History] Insulin Aspart [NovoLOG] 0 unit SUBCUT .UP TO 60 UN DAILY 09/30/19 [History] Metoclopramide [Reglan] 5 mg PO TIDAC #90 tablet 10/10/19 [Rx] Pantoprazole [ProTONIX] 40 mg PO DAILY #30 tab.cr 10/10/19 [Rx] Insulin Glarg,Human.Rec.Analog [Lantus] 35 unit SUBCUT BEDTIME 10/14/19 [History ] Past Medical History - Past Health History Medical/Surgical History: Denies Medical/Surgical History HEENT History: Reports: Impaired Vision Other HEENT History: blind right eye Cardiovascular History: Reports: Hypertension Respiratory History: Reports: None Gastrointestinal History: Reports: Gastritis, GERD, Hiatal Hernia, Other (See Below) Other Gastrointestinal History: h/o gastric ulcers, h/o hiatal hernia; gastroparesis Genitourinary History: Reports: Chronic Renal Insuffiency, Diabetic Nephropathy Musculoskeletal History: Reports: Amputation Neurological History: Reports: Neuropathy, Peripheral Other Neuro History: stroke Psychiatric History: Reports: Anxiety Endocrine/Metabolic History: Reports: Diabetes, Type I Other Endocrine/Metabolic History: brittle diabetic. History of hyperkalemia and DKA Insulin Pump Model and Diesel Engine Erector: None Hematologic History: Reports: Anemia Immunologic History: Reports: None Oncologic (Cancer) History: Reports: None Dermatologic History: Reports: Other (See Below) Other Dermatologic History: diabetic foot ulcers - Infectious Disease History Infectious Disease History: Reports: Chicken Pox Other Infectious Disease History: 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 - Past Surgical History Head Surgeries/Procedures: Reports: None HEENT Surgical History: Reports: None Cardiovascular Surgical History: Reports: None Respiratory Surgical History: Reports: None GI Surgical History: Reports: None Male Surgical History: Reports: None Endocrine Surgical History: Reports: None Neurological Surgical History: Reports: None Musculoskeletal Surgical History: Reports: Other (See Below) Other Musculoskeletal Surgeries/Procedures:: right BKA Oncologic Surgical History: Reports: None Dermatological Surgical History: Reports: None Social & Family History - Family History Family Medical History: Noncontributory Cardiac: Reports: High Cholesterol, Hypertension OBGYN: Reports: Neurological: Reports: None Psychiatric: Reports: Anxiety - Tobacco Use Smoking Status *Q: Never Smoker - Caffeine Use Caffeine Use: Reports: Coffee Other Caffeine Use: daily Caffeine Use Comment: patient is uncooperated - Recreational Drug Use Recreational Drug Use: Yes Drug Use in Last 12 Months: Yes Recreational Drug Type: Reports: Marijuana/Hashish Recreational Drug Use Frequency: Weekly - Living Situation & Occupation Living situation: Reports: Single Occupation: Employed (Currently unemployed.) ED ROS GENERAL - Review of Systems Review Of Systems: See Below (Positive for abdominal pain, positive for vomiting , negative for fevers, all other Positives and pertinent negatives as per HPI. All other pertinent systems were reviewed and are negative) ED EXAM, GI/ABD - Physical Exam Exam: See Below Text/Narrative:: Constitutional: Disheveled, histrionic behavior HEENT: Normocephalic, Atraumatic, EOMI Neck: Normal range of motion, No stridor, trachea midline Respiratory: No respiratory distress, No tachypnea Cardiovascular: Deferred Gastrointestinal: Deferred Genital / Urinary: Deferred Musculoskeletal: All four extremities present (except for right lower extremity prosthesis which I did not note on the previous dictations ) Back: FROM Integument: Warm, Dry, Color is ethnicity appropriate, No rash. Neuro: Alert, Awake, normal gait, no focal deficits noted Psych: Agitated, not psychotic, histrionic Course - Vital Signs Text/Narrative:: It is recognized that this patient has multiple true medical problems; however, the patient is not exhibiting any signs of an emergency. Furthermore, I have already seen the patient twice, and he has changed his story several times and he is giving multiple reasons that despite all of the admissions that he has had through the hospital, that he is never been able to follow-up. Furthermore , he keeps demanding opioids when he is told no the patient is escalating. Now the patient started throwing a tantrum and is threatening to kill himself. He specifically stated he would not kill himself if he got something for pain. In my professional opinion, the patient is exhibiting drug-seeking behavior, not psychosis or true suicidal ideation. He is still clean, he has not hypotensive, I have reviewed multiple old records , endoscopies, etc. and there is not anything that I can find that would support the need for opioid therapy. As such, the patient has been discharged for the third time. He started making more threats to kill himself and his sister who is present (and he gave me verbal permission to speak to her and I explained what has been done for him previously and why he is being discharged ) then called the police because he was threatening to kill himself. They came to the ER and they arrived where they are currently talking to him in the parking lot. Last Recorded V/S: Last Vital Signs Temp 36.6 C 11/21/19 03:50 Pulse 120 H 11/21/19 03:50 Resp 24 H 11/21/19 03:50 BP 213/135 H 11/21/19 03:50 Pulse Ox 99 11/21/19 03:50 Departure - Departure Time of Disposition: 04:11 Disposition: Home, Self-Care 01 Condition: Good Clinical Impression: Drug-seeking behavior Abdominal pain Qualifiers: Abdominal location: upper abdomen, unspecified Qualified Code(s): R10.10 - Upper abdominal pain, unspecified - Discharge Information Instructions: Abdominal Pain, Adult, [id number] Referrals: PCP,None [Primary Care Provider] - Forms: ED Department Discharge Additional Instructions: The following information is given to patients seen in the emergency department who are being discharged to home. This information is to outline your options for follow-up care. We provide all patients seen in our emergency department with a follow-up referral. The need for follow-up, as well as the timing and circumstances, are variable depending upon the specifics of your emergency department visit. If you don't have a primary care physician on staff, we will provide you with a referral. We always advise you to contact your personal physician following an emergency department visit to inform them of the circumstance of the visit and for follow-up with them and/or the need for any referrals to a consulting specialist. The emergency department will also refer you to a specialist when appropriate. This referral assures that you have the opportunity for follow-up care with a specialist. All of these measure are taken in an effort to provide you with optimal care, which includes your follow-up. Under all circumstances we always encourage you to contact your private physician who remains a resource for coordinating your care. When calling for follow-up care, please make the office aware that this follow-up is from your recent emergency room visit. If for any reason you are refused follow-up, please contact the [facility] Emergency Department at and asked to speak to the emergency department charge nurse. [facility] [address] [place] [address] [id number] [address] [id number] Sepsis Event Note - Evaluation Sepsis Screening Result: No Definite Risk - Focused Exam Vital Signs: Vital Signs Temp Pulse Resp BP Pulse Ox 11/21/19 03:50 36.6 C 120 H 24 H 213/135 H 99 Date Exam was Performed: 11/21/19 Time Exam was Performed: 04:33
== END 2019-11-21 04:16 | disposition home or self-care (01) ==
LOC: MW.ED 03:45
DX: R10.10 Upper abdominal pain, unspecified (principal); I10 Essential (primary) hypertension; K21.9 Gastro-esophageal reflux disease without esophagitis; E10.42 Type 1 diabetes mellitus with diabetic polyneuropathy; Z76.5 Malingerer [conscious simulation]; Z88.0 Allergy status to penicillin; Z91.018 Allergy to other foods; Z91.013 Allergy to seafood; Z91.09 Other allergy status, other than to drugs and biological substances
CPT/HCPCS: 99283

== ENCOUNTER 2019-11-21 10:46 | Emergency (ER) | payer SELFPAY ==
[2019-11-21] MEDS ORDERED: diphenhydrAMINE 50 MG/ML SDV IVPUSH ONE (11:04)
[2019-11-21] MEDS ORDERED: Sodium Chloride 0.9% 1,000 ML IV ONE (11:04)
[2019-11-21] MEDS ORDERED: Haloperidol Lactate 5 MG/ML SDV IM ONE (11:06)
--- NOTE | 2019-11-21 12:34 | CT ---
CT abdomen and pelvis Technique: Multiple axial sections were obtained from above the dome of the diaphragm inferiorly through the pubic symphysis. Intravenous and oral contrast not utilized. Comparison: Prior CT abdomen and pelvis exam of 10/14/19. Findings: Visualized lung bases show nothing acute. Liver contains no focal parenchymal abnormality. Spleen appears within normal limits. Esophageal wall thickening noted within the distal esophagus raising the possibility of reflux esophagitis. Adrenal glands show no nodule. Kidneys show no abnormal calcifications. Small cyst is noted within the lower pole of the left kidney measuring 1.2 cm. No hydronephrosis is seen. Pancreas shows no discrete abnormality. Aorta shows no aneurysm. No retroperitoneal adenopathy or mesenteric abnormalities are seen. No pelvic mass or adenopathy is identified. Appendix not definitely visualized. No inflammatory change is appreciated. Gallbladder contains no calcified gallstones. Bone window settings were reviewed which shows no acute osseous finding. Impression: 1. Esophageal wall thickening raising the possibility of reflux esophagitis. 2. Small cyst within the lower left kidney. 3. No additional abnormality is appreciated on noncontrast CT study of the abdomen and pelvis. Diagnostic code #2 This report was dictated in [place] Standard Time
--- NOTE | 2019-11-21 13:05 | EDM.PDOC ---
ED HPI GENERAL MEDICAL PROBLEM - General Chief Complaint: Abdominal Pain Stated Complaint: VOMITTING Time Seen by Provider: 11/21/19 10:54 - History of Present Illness INITIAL COMMENTS - FREE TEXT/NARRATIVE: HPI 34-year-old male with history of gastroparesis and recurrent episodes of nausea vomiting presents complaining of recurrent upper abdominal discomfort consistent with his gastroparetic exacerbations with emesis since last night. No fevers, chills, continues pass urine, flatus, stool at baseline. M/S/F/SocHx notable for: please see HPI; remainder reviewed with patient and in chart. ROS: Negative constitutional, eye, cardiovascular, pulmonary, GI, , MSK, skin , neurologic, psychiatric, endocrine unless noted in the HPI. Exam HR (pending), BP 214/167, T 36.4C, RR 22, SaO2 (pending). Gen: pleasant, uncomfortable appearing, not in extremis. HEENT: NC, AT, PEERL, EOMI. Resp: Clear to auscultation bilaterally, normal work of breathing, no accessory muscle usage. Card: Regular rate and rhythm with no murmurs, rubs, or gallops, extremities warm and well perfused. GI: mild epigastric tenderness palpation, remainder of abdomen nontender to palpation throughout all quadrants, no focal tenderness at McBurney's point, negative Interiano's sign, non-distended, no rebound or guarding. : No suprapubic tenderness to palpation. MSK: No visible deformities, strength and tone without visually appreciable deficit. Skin: Normal color with no visible lesions. Neuro: alert and oriented 3, no facial asymmetry, vision and hearing WNL. Psych: usual mood and affect. Labs / Imaging: EKG: SR 140 bpm, no ST segment elevations or depressions, no hyperacute T waves , QTc [address] Abd/Pelvis: 1. Esophageal wall thickening raising the possibility of reflux esophagitis. 2. Small cyst within the lower left kidney. 3. No additional abnormality is appreciated on noncontrast CT study of the abdomen and pelvis. WBC 15.85, HB 10.3, sodium 142, potassium 4.0, creatinine 2.6, glucose 255, magnesium 2.1, AST 30, ALT 32, total bilirubin 0.3, alkaline phosphatase 104, lipase 39. MDM Previous chart, nursing note, labs, imaging, and vitals reviewed. A: 34-year-old male with history of gastroparesis and recurrent episodes of nausea vomiting presents complaining of recurrent upper abdominal discomfort consistent with his gastroparetic exacerbations with emesis since last night. DDx & Evaluation: patient is uncomfortable but does not appear to be toxic or in extremis. Laboratory studies are without evidence of DKA, the patient had a noncontrast CT of his abdomen pelvis without evidence of acute abnormality. Glucose was elevated but within acceptable limits. The patient was given 1 L NS , 3 mg haloperidol, and 25 mg diphenhydramine with significant improvement in symptoms. There are no features on the above evaluation suggestive of SBO, AAA, active bleeding (no observed hematemesis while in the department, no history of melanotic stools, H & H WNL), renal function appears to be at baseline. Patient recommended to use his antibiotic prescription and follow up with his PCP tomorrow. Symptoms are highly localized the abdomen, no features to warrant a cardiac evaluation, EKG was obtained to evaluate the patients QT interval. Impression: abdominal pain, nausea, vomiting. Abdomen Pain Score (Numeric/FACES): 10 - Related Data Allergies Allergy/AdvReac Type Severity Reaction Status Date / Time shrimp Allergy Severe Swelling Verified 11/21/19 11:04 iodine Allergy Unknown Anaphylactic Verified 11/21/19 11:04 Shock Penicillins Allergy Unknown Anaphylactic Verified 11/21/19 11:04 Shock metoclopramide [From Reglan] Allergy Facial Verified 11/21/19 11:04 Spasms shellfish derived Allergy Anaphylactic Verified 11/21/19 11:04 Shock gluten Allergy Unknown Muscle Uncoded 11/21/19 11:04 Aches Home Meds: Home Meds Doxazosin [Cardura] 4 mg PO BEDTIME 09/29/19 [History] Metoprolol Succinate 200 mg PO DAILY 09/29/19 [History] Torsemide 20 mg PO DAILY 09/29/19 [History] atorvaSTATin [Lipitor] 80 mg PO BEDTIME 09/29/19 [History] hydrALAZINE [Apresoline] 25 mg PO TID 09/29/19 [History] Insulin Aspart [NovoLOG] 0 unit SUBCUT .UP TO 60 UN DAILY 09/30/19 [History] Metoclopramide [Reglan] 5 mg PO TIDAC #90 tablet 10/10/19 [Rx] Pantoprazole [ProTONIX] 40 mg PO DAILY #30 tab.cr 10/10/19 [Rx] Insulin Glarg,Human.Rec.Analog [Lantus] 35 unit SUBCUT BEDTIME 10/14/19 [History ] Past Medical History - Past Health History Medical/Surgical History: Denies Medical/Surgical History HEENT History: Reports: Impaired Vision Other HEENT History: blind right eye Cardiovascular History: Reports: Hypertension Respiratory History: Reports: None Gastrointestinal History: Reports: Gastritis, GERD, Hiatal Hernia, Other (See Below) Other Gastrointestinal History: h/o gastric ulcers, h/o hiatal hernia; gastroparesis Genitourinary History: Reports: Chronic Renal Insuffiency, Diabetic Nephropathy Musculoskeletal History: Reports: Amputation Neurological History: Reports: Neuropathy, Peripheral Other Neuro History: stroke Psychiatric History: Reports: Anxiety Endocrine/Metabolic History: Reports: Diabetes, Type I Other Endocrine/Metabolic History: brittle diabetic. History of hyperkalemia and DKA Insulin Pump Model and Poker Supervisor: None Hematologic History: Reports: Anemia Immunologic History: Reports: None Oncologic (Cancer) History: Reports: None Dermatologic History: Reports: Other (See Below) Other Dermatologic History: diabetic foot ulcers - Infectious Disease History Infectious Disease History: Reports: None Other Infectious Disease History: 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 - Past Surgical History Head Surgeries/Procedures: Reports: None HEENT Surgical History: Reports: None Cardiovascular Surgical History: Reports: None Respiratory Surgical History: Reports: None GI Surgical History: Reports: None Male Surgical History: Reports: None Endocrine Surgical History: Reports: None Neurological Surgical History: Reports: None Musculoskeletal Surgical History: Reports: Other (See Below) Other Musculoskeletal Surgeries/Procedures:: right BKA Oncologic Surgical History: Reports: None Dermatological Surgical History: Reports: None Social & Family History - Family History Family Medical History: Noncontributory Cardiac: Reports: High Cholesterol, Hypertension OBGYN: Reports: Neurological: Reports: None Psychiatric: Reports: Anxiety - Tobacco Use Smoking Status *Q: Never Smoker Second Hand Smoke Exposure: No - Caffeine Use Caffeine Use: Reports: None Other Caffeine Use: daily Caffeine Use Comment: patient is uncooperated - Recreational Drug Use Recreational Drug Use: Yes Recreational Drug Type: Reports: Marijuana/Hashish Recreational Drug Use Frequency: Daily - Living Situation & Occupation Living situation: Reports: Single Occupation: Employed (Currently unemployed.) ED ROS GENERAL - Review of Systems Review Of Systems: See Below ED EXAM, GENERAL - Physical Exam Exam: See Below Course - Vital Signs Last Recorded V/S: Last Vital Signs Temp 36.4 C 11/21/19 11:00 Pulse Resp 22 H 11/21/19 11:00 BP 214/167 H 11/21/19 11:00 Pulse Ox - Orders/Labs/Meds Orders: Active Orders 24 hr Category Date Time Status EKG 12 Lead [EKG Documentation Completion] [RC] STAT Care 11/21/19 11:06 Active UA W/FRANTZ RFLX IF INDICATED [URIN] Stat Lab 11/21/19 11:04 Ordered Labs: Laboratory Tests 11/21/19 11/21/19 Range/Units 11:20 11:20 WBC 15.85 H (4.0-11.0) K/uL RBC 4.79 (4.50-5.90) M/uL Hgb 10.3 L (13.0-17.0) g/dL Hct 32.1 L (38.0-50.0) % MCV 67.0 L (80.0-98.0) fL MCH 21.5 L (27.0-32.0) pg MCHC 32.1 (31.0-37.0) g/dL RDW Std Deviation 39.4 (28.0-62.0) fl RDW Coeff of Dania 16 H (11.0-15.0) % Plt Count 365 (150-400) K/uL MPV 10.30 (7.40-12.00) fL Neut % (Auto) 81.0 H (48.0-80.0) % Lymph % (Auto) 13.2 L (16.0-40.0) % Alpine % (Auto) 5.4 (0.0-15.0) % Eos % (Auto) 0.1 (0.0-7.0) % Baso % (Auto) 0.3 (0.0-1.5) % Neut # (Auto) 12.8 H (1.4-5.7) K/uL Lymph # (Auto) 2.1 (0.6-2.4) K/uL Alpine # (Auto) 0.9 H (0.0-0.8) K/uL Eos # (Auto) 0.0 (0.0-0.7) K/uL Baso # (Auto) 0.0 (0.0-0.1) K/uL Nucleated RBC % 0.0 /100WBC Nucleated RBCs # 0 K/uL Sodium 142 (136-148) mmol/L Potassium 4.0 (3.5-5.1) mmol/L Chloride 105 (98-107) mmol/L Carbon Dioxide 20.0 L (21.0-32.0) mmol/L BUN 40 H (7.0-18.0) mg/dL Creatinine 2.6 H (0.8-1.3) mg/dL Est Cr Clr Drug Dosing 39.10 mL/min Estimated GFR (MDRD) 34.6 ml/min Glucose 255 H (74-106) mg/dL Calcium 8.8 (8.5-10.1) mg/dL Magnesium 2.1 (1.8-2.4) mg/dL Total Bilirubin 0.3 (0.2-1.0) mg/dL AST 30 (15-37) IU/L ALT 32 (14-63) IU/L Alkaline Phosphatase 104 (46-116) U/L Total Protein 6.5 (6.4-8.2) g/dL Albumin 2.5 L (3.4-5.0) g/dL Globulin 4.0 (2.6-4.0) g/dL Albumin/Globulin Ratio 0.6 L (0.9-1.6) Lipase 39 L (73-393) U/L Meds: Medications Discontinued Medications Generic Name Dose Route Start Last Admin Trade Name Freq PRN Reason Stop Dose Admin Diphenhydramine HCl 25 mg 11/21/19 11:04 11/21/19 11:12 Benadryl IVPUSH 11/21/19 11:05 25 mg ONETIME ONE Administration Haloperidol Lactate 3 mg 11/21/19 11:06 11/21/19 11:12 Haldol IM 11/21/19 11:07 3 mg ONETIME ONE Administration Sodium Chloride 1,000 mls @ 1,000 mls/hr 11/21/19 11:04 11/21/19 11:12 Normal Saline IV 11/21/19 12:03 1,000 mls/hr .Bolus ONE Administration Departure - Departure Time of Disposition: 13:04 Disposition: Home, Self-Care 01 Clinical Impression: Abdominal pain - Discharge Information Referrals: Fitz Infante MD [Primary Care Provider] - Additional Instructions: You were in seen in the [facility] Emergency Department for evaluation of abdominal pain, nausea, vomiting. At the time of your evaluation your symptoms are tentatively believed to be due to your gastroparesis. Please use your current prescription for antinausea medications and follow-up your primary care physician tomorrow. Please read and follow all of the instructions below. When calling for follow-up care, please make the office aware that this follow- up is from your recent emergency room visit. If for any reason you are refused follow-up, please contact the [facility] Emergency Department at and asked to speak to the emergency department charge nurse. Your care today was limited to identifying and treating emergent medical problems only. Many people have subtle differences in their test results that require follow up with their outpatient physician(s) to correctly determine if this represents a normal variation or concerning abnormality with respect to your specific health. The care given to you today was limited to identifying and treating emergent medical problems - you need to request a copy of all of your medical records from today's visit and follow up with your outpatient physician(s) to review both today's visit and your overall health. If you have any new symptoms or if you are at all concerned about your health please return immediately to the emergency department. Abdominal Pain The exact cause of your abdominal pain is not certain. Based upon the testing today you are felt to be at low risk for discharge. There are no current signs of a life threatening illness or injury. Your condition does not seem serious now; however, sometimes the signs of a serious problem may take more time to appear. For this reason, it is important for you to watch for any new symptoms, problems, or worsening of your condition. Over the next few days, the abdominal pain may come and go, or be continuous. Other common symptoms can include nausea and vomiting. Sometimes it can be difficult to tell if you feel nauseous , you may just feel bad and not associate that feeling with nausea. Constipation , diarrhea, and a fever may go along with the pain. The pain may continue even if treated correctly over the following days. Depending on how things go, sometimes the cause can become clear and may require further or different treatment. Additional evaluations, medications, or tests may be needed. If your symptoms do not worsen but you are still having pain after 12-24 hours, please call your primary care physician to arrange for further evaluation. Return to the emergency department if any of the following occur: Pain gets worse or moves to the right lower abdomen New or worsening vomiting or diarrhea Swelling of the abdomen Unable to pass gas or stool for more than 8 hours Fever of 100.4F (38C) or higher, or as directed by your healthcare provider. Blood in vomit or bowel movements (dark red or black color) If you have yellow skin or eyes or if you have dark brown urine. Weakness, dizziness Chest, arm, back, neck or jaw pain Unexpected vaginal bleeding or missed period Trouble breathing Confusion Fainting or loss of consciousness Rapid heart rate Seizure If you are light headed upon standing or passing out. If you are otherwise concerned about your health. Home Care Do not force yourself to eat, especially if having cramps, vomiting, or diarrhea. Water is important so you do not get dehydrated. Soup may also be good. Sports drinks may also help, especially if they are not too acidic. Make sure you don't drink sugary drinks as this can make things worse. Take liquids in small amounts. Caffeine sometimes makes the pain and cramping worse. Avoid dairy products if you have vomiting or diarrhea. Don't eat large amounts at a time. Wait a few minutes between bites. Eat a diet low in fiber (called a low-residue diet). Foods allowed include refined breads, white rice, fruit and vegetable juices without pulp, tender meats. These foods will pass more easily through the intestine. Avoid whole-grain foods, whole fruits and vegetables, meats, seeds and nuts , fried or fatty foods, dairy, alcohol and spicy foods until your symptoms go away. Prescriptions: If you are uninsured or have financial difficulties with filling your prescription(s), you may consider using a free pharmacy discount service such as [employer] (Yo que Vos) or [employer] (Coffee Me[employer] Bagel). These services allow you to search for a medication on your phone (or computer) and obtain a coupon that usually has a significant discount from the list yañez at a pharmacy. Your physician as well as [facility] does not have a financial relationship with either of these services. You may also wish to speak with your physician to determine if lower cost prescriptions are possible. Obtaining primary care: 1. [facility] provides pediatrics (children), family medicine (children, adults, and some obstetrical care), and internal medicine (adults). Further specialty care is also available. Same day appointments are available. They may be contacted at [phone] and are open Thursday through Thursday 8 AM to [address] [facility] are located at [facility], [address] [place] [address]. 2. [facility] offers family medicine, internal medicine, women health, and further specialty care. [facility] may be contacted at [phone]. [facility] is located at [address] [facility] [address]. 3. If you have health insurance, please also contact your insurer for a list of accepting providers under your policy, you may contact these providers for further health care. Occupational health: Work related injuries may consider following up with [facility], . Occupational health services are located at [address] [place] [address] and are open Thursday through Thursday from 7: 30 am to 5:00 pm. Obstetrical and Gynecological Care: [facility], , Thursday through Thursday 8 AM to 5 PM. [address] [place] [address]. Eyecare: If you have an eye injury you should follow up with your manager database administration or with [facility], at [phone] or [phone] , they are located at [address] [place] [address]. Dental Care Yvon Marte DDS. [address] [place], [place]. Ph. [phone] Dre Marte DDS [place]. [address] Ph. [phone] Jae James DDS. 10 09/[address] [place] [address], [place], [place]. Ph. [phone] Ej Malave DDS. [address] [facility] [address] [place], [place]. Ph. [phone] Ghosh Santana Harry DDS PC. [address] [place], [place]. Ph. Queta Benitez DDS. [address] [facility]. Ph. [phone] [facility]. [address] [place], [place]. Ph. [phone] [facility]. [address] [place] [address], [place], [place]. Ph. [phone] [facility] [address] [place] [address]. Ph. [facility]. [address] [place] [address] [address] [place], [place]. Ph. [facility]. [address] [place], [place]. Ph. Sepsis Event Note - Evaluation Sepsis Screening Result: No Definite Risk - Focused Exam Vital Signs: Vital Signs Temp Resp BP 11/21/19 11:00 36.4 C 22 H 214/167 H Date Exam was Performed: 11/21/19 Time Exam was Performed: 13:04 - My Orders Last 24 Hours: My Active Orders 11/21/19 11:04 UA W/FRANTZ RFLX IF INDICATED [URIN] Stat 11/21/19 11:06 EKG 12 Lead [EKG Documentation Completion] [RC] STAT - Assessment/Plan Last 24 Hours: My Active Orders 11/21/19 11:04 UA W/FRANTZ RFLX IF INDICATED [URIN] Stat 11/21/19 11:06 EKG 12 Lead [EKG Documentation Completion] [RC] STAT
[2019-11-21 13:35] VITALS: BP 182/103; PULSE 95
== END 2019-11-21 13:20 | disposition home or self-care (01) ==
LOC: MW.ED 10:46
DX: R10.13 Epigastric pain (principal); R11.2 Nausea with vomiting, unspecified; I10 Essential (primary) hypertension; E10.43 Type 1 diabetes mellitus with diabetic autonomic (poly)neuropathy; K31.84 Gastroparesis; E10.42 Type 1 diabetes mellitus with diabetic polyneuropathy; Z79.899 Other long term (current) drug therapy; K21.9 Gastro-esophageal reflux disease without esophagitis; Z91.013 Allergy to seafood; Z88.0 Allergy status to penicillin; Z91.09 Other allergy status, other than to drugs and biological substances; Z88.8 Allergy status to other drugs, medicaments and biological substances
CPT/HCPCS: 36415; 74176; 80053; 83690; 83735; 85025; 93005; 96361; 96372; 96374; 99284; J1200; J1630; J7030; 99283

== ENCOUNTER 2019-11-27 09:18 | Emergency (ER) | payer SELFPAY ==
[2019-11-27] MEDS ORDERED: Sodium Chloride 0.9% 1,000 ML IV ONE (09:30)
[2019-11-27] MEDS ORDERED: Haloperidol Lactate 5 MG/ML SDV IM ONE (09:36)
[2019-11-27 10:12] LABS: CARBON DIOXIDE,CO2 27.3 mmol/L (21.0-32.0); POTASSIUM,K 3.7 mmol/L (3.5-5.1)
--- NOTE | 2019-11-27 10:48 | CR ---
Chest: Portable view of the chest was obtained. Comparison: Prior chest x-ray of 11/03/19. Heart size and mediastinum are within normal limits. Lungs are clear with no acute parenchymal change. Bony structures appear within normal limits for the patient's age. No free air is seen beneath the hemidiaphragms. Impression: 1. Nothing acute is identified on AP chest x-ray. Diagnostic code #1 This report was dictated in MDT
[2019-11-27 11:47] VITALS: BP 188/115; PULSE 102
--- NOTE | 2019-11-27 11:50 | EDM.PDOC ---
ED HPI GENERAL MEDICAL PROBLEM - General Chief Complaint: Gastrointestinal Problem Stated Complaint: NAUSEA/VOMITING Time Seen by Provider: 11/27/19 09:21 Source of Information: Reports: Patient, EMS History Limitations: Reports: No Limitations - History of Present Illness INITIAL COMMENTS - FREE TEXT/NARRATIVE: HISTORY OF PRESENT ILLNESS: Patient is a 34-year-old male with history of diabetes and gastroparesis who presents with nausea vomiting since yesterday. Has associated 8 out of 10 abdominal pain which is described as burning in nature. States he had blood in his emesis multiple times and EMS noted blood while at his home. Denies any urinary symptoms. No fevers or chills. No chest pain or dyspnea. Pain feels similar to prior episodes. States his sugar was in the mid 300s at home. He only took 6 units of his insulin this morning when he was supposed to take 14 units. States he has not been able to keep anything down and therefore did not want to take his full dose in case his sugar dropped. Eyes any melena hematochezia. No diarrhea or constipation. REVIEW OF SYSTEMS: Other than the symptoms associated with the present events, the following is reported with regard to recent health: General: (-) fever. HENT: (-) congestion. Respiratory: (-) cough. Cardiovascular: (-) chest pain. GI: (-) abdominal pain. : (-) urinary complaints. Musculoskeletal: (-) other aches or pains. Endocrine: (-) generalized weakness. Neurological: (-) localized weakness. Skin: (-) rash PAST MEDICAL HISTORY: reviewed as per nursing notes SOCIAL HISTORY: reviewed as per nursing notes, MEDICATIONS: Per nurse's note ALLERGIES: Per nurse's note, reviewed by me PHYSICAL EXAMINATION: GENERALIZED APPEARANCE: well developed, well nourished in moderate emotional distress VITAL SIGNS: Per nurse's note, reviewed by me SKIN: Warm, dry; (-) cyanosis; (-) rash. HEAD: (-) scalp swelling, (-) tenderness. EYES: (-) conjunctival pallor, (-) scleral icterus. ENMT: (-) stridor; mucous membranes moist. NECK: (-) tenderness, (-) stiffness, CHEST AND RESPIRATORY: (-) rales, (-) rhonchi, (-) wheezes; breath sounds equal bilaterally. HEART AND CARDIOVASCULAR: tachycardic, regular rhythm; (-) murmur, (-) gallop. ABDOMEN AND GI: Soft; (-) tenderness, (-) guarding, (-) rebound, (-) palpable masses, EXTREMITIES: (-) deformity, (-) edema. NEURO AND PSYCH: Alert. Cranial nerves grossly intact; strength symmetric. gait steady DIAGNOSTICS: Labs reviewed CXR: see radiologist report EKG: st at 119 bpm. nml axis. nml intervals. no st elevation EMERGENCY DEPARTMENT COURSE AND TREATMENT: Patient's condition improved during Emergency Department evaluation. Patient seen upon arrival. IV fluids were initiated. Labs and diagnostics were ordered. Given Haldol with relief of pain and emotional distress. Patient one episode of emesis here with a small amount of dark material which was occult blood positive. He is hemodynamically stable , however will require transfer to [place] as we are unable to perform inpatient UGI endoscopy here.patient adamantly refusing transfer. States he has no way to return home. States he has had multiple episodes in the past of upper GI bleeding and all scopes have been negative. The patient declines transfer and wishes to leave the Emergency Department. This action is against my medical advice to the patient and the decision was made with informed refusal. The patient was told that transfer/admission is necessary and a full explanation of the rationale was given. The risks of leaving were explained to the patient and include, but are not limited to, worsening of known or currently unknown conditions, permanent disability and from undiagnosed or untreated conditions. The patient has the capacity to make this informed decision and understands the clinical situation and my explanation of the risks of leaving. The patient voluntarily accepts these risks and a signed AMA form documenting our conversation was obtained. The patient was given the opportunity to ask questions and reconsider. The patient was encouraged to return to the Emergency Department at any time for further care. To f/u with pcp and GI tomorrow. Have BP rechecked by pcp tomorrow. PLAN AND FOLLOW-UP: Patient received written and verbal instructions regarding this condition. Return to ED immediately with any new or worsening symptoms. Follow up to be arranged by Patient with pcp and GI in 1-2 days for further evaluation. Given discharge precautions. Patient expressed verbal understanding. Epigastric Pain Pain Score (Numeric/FACES): 10 - Related Data Allergies Allergy/AdvReac Type Severity Reaction Status Date / Time shrimp Allergy Severe Swelling Verified 11/27/19 09:23 iodine Allergy Unknown Anaphylactic Verified 11/27/19 09:23 Shock Penicillins Allergy Unknown Anaphylactic Verified 11/27/19 09:23 Shock metoclopramide [From Reglan] Allergy Facial Verified 11/27/19 09:23 Spasms shellfish derived Allergy Anaphylactic Verified 11/27/19 09:23 Shock gluten Allergy Unknown Muscle Uncoded 11/21/19 11:04 Aches Home Meds: Home Meds Doxazosin [Cardura] 4 mg PO BEDTIME 09/29/19 [History] Metoprolol Succinate 200 mg PO DAILY 09/29/19 [History] Torsemide 20 mg PO DAILY 09/29/19 [History] atorvaSTATin [Lipitor] 80 mg PO BEDTIME 09/29/19 [History] hydrALAZINE [Apresoline] 25 mg PO TID 09/29/19 [History] Insulin Aspart [NovoLOG] 0 unit SUBCUT .UP TO 60 UN DAILY 09/30/19 [History] Metoclopramide [Reglan] 5 mg PO TIDAC #90 tablet 10/10/19 [Rx] Pantoprazole [ProTONIX] 40 mg PO DAILY #30 tab.cr 10/10/19 [Rx] Insulin Glarg,Human.Rec.Analog [Lantus] 35 unit SUBCUT BEDTIME 10/14/19 [History ] Past Medical History - Past Health History Medical/Surgical History: Denies Medical/Surgical History HEENT History: Reports: Impaired Vision Other HEENT History: blind right eye Cardiovascular History: Reports: Hypertension Respiratory History: Reports: None Gastrointestinal History: Reports: Gastritis, GERD, Hiatal Hernia, Other (See Below) Other Gastrointestinal History: h/o gastric ulcers, h/o hiatal hernia; gastroparesis Genitourinary History: Reports: Chronic Renal Insuffiency, Diabetic Nephropathy Musculoskeletal History: Reports: Amputation Neurological History: Reports: Neuropathy, Peripheral Other Neuro History: stroke Psychiatric History: Reports: Anxiety Endocrine/Metabolic History: Reports: Diabetes, Type I Other Endocrine/Metabolic History: brittle diabetic. History of hyperkalemia and DKA Insulin Pump Model and Optimization Specialist: None Hematologic History: Reports: Anemia Immunologic History: Reports: None Oncologic (Cancer) History: Reports: None Dermatologic History: Reports: Other (See Below) Other Dermatologic History: diabetic foot ulcers - Infectious Disease History Infectious Disease History: Reports: Hepatitis C Other Infectious Disease History: 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 - Past Surgical History Head Surgeries/Procedures: Reports: None HEENT Surgical History: Reports: None Cardiovascular Surgical History: Reports: None Respiratory Surgical History: Reports: None GI Surgical History: Reports: None Male Surgical History: Reports: None Endocrine Surgical History: Reports: None Neurological Surgical History: Reports: None Musculoskeletal Surgical History: Reports: Other (See Below) Other Musculoskeletal Surgeries/Procedures:: right BKA Oncologic Surgical History: Reports: None Dermatological Surgical History: Reports: None Social & Family History - Family History Family Medical History: Noncontributory Cardiac: Reports: High Cholesterol, Hypertension OBGYN: Reports: Neurological: Reports: None Psychiatric: Reports: Anxiety - Tobacco Use Smoking Status *Q: Never Smoker Second Hand Smoke Exposure: No - Caffeine Use Caffeine Use: Reports: Coffee, Soda Other Caffeine Use: daily Caffeine Use Comment: patient is uncooperated - Recreational Drug Use Recreational Drug Use: No - Living Situation & Occupation Living situation: Reports: Single Occupation: Employed (Currently unemployed.) ED ROS GENERAL - Review of Systems Review Of Systems: See Below (see dictation) ED EXAM, GENERAL - Physical Exam Exam: See Below (see dictation) Course - Vital Signs Last Recorded V/S: Last Vital Signs Temp 97.6 F 11/27/19 09:20 Pulse 102 H 11/27/19 11:30 Resp 18 11/27/19 11:30 BP 188/115 H 11/27/19 11:30 Pulse Ox 97 11/27/19 11:30 - Orders/Labs/Meds Orders: Active Orders 24 hr Category Date Time Status EKG Documentation Completion [RC] STAT Care 11/27/19 09:30 Active Gastrointestinal Tube Mgmt [RC] ASDIRECTED Care 11/27/19 10:15 Active Occult Blood Diagnostic GI [OCCULT BLOOD DIAGNOSTIC] [ Lab 11/27/19 10:24 Ordered OP] Stat NG [Nasogastric Orogastric Tube Insertion] [OM.PC] Stat Oth 11/27/19 10:15 Ordered Labs: Laboratory Tests 11/27/19 11/27/19 11/27/19 Range/Units 09:42 09:42 09:42 WBC 9.99 (4.0-11.0) K/uL RBC 4.97 (4.50-5.90) M/uL Hgb 10.6 L (13.0-17.0) g/dL Hct 33.7 L (38.0-50.0) % MCV 67.8 L (80.0-98.0) fL MCH 21.3 L (27.0-32.0) pg MCHC 31.5 (31.0-37.0) g/dL RDW Std Deviation 38.6 (28.0-62.0) fl RDW Coeff of Dania 16 H (11.0-15.0) % Plt Count 351 (150-400) K/uL MPV 10.10 (7.40-12.00) fL Neut % (Auto) 73.6 (48.0-80.0) % Lymph % (Auto) 19.2 (16.0-40.0) % Ponce % (Auto) 6.1 (0.0-15.0) % Eos % (Auto) 0.5 (0.0-7.0) % Baso % (Auto) 0.6 (0.0-1.5) % Neut # (Auto) 7.4 H (1.4-5.7) K/uL Lymph # (Auto) 1.9 (0.6-2.4) K/uL Ponce # (Auto) 0.6 (0.0-0.8) K/uL Eos # (Auto) 0.1 (0.0-0.7) K/uL Baso # (Auto) 0.1 (0.0-0.1) K/uL Nucleated RBC % 0.0 /100WBC Nucleated RBCs # 0 K/uL INR VBG pH (7.31-7.41) VBG pCO2 (35-45) mmHG VBG pO2 (30-40) mmHG VBG HCO3 (22-30) mEq/L VBG Total CO2 (41-51) mmol/L VBG Base Excess (-3.0-3.0) Sodium 142 (136-148) mmol/L Potassium 3.7 (3.5-5.1) mmol/L Chloride 104 (98-107) mmol/L Carbon Dioxide 27.3 (21.0-32.0) mmol/L BUN 24 H (7.0-18.0) mg/dL Creatinine 2.5 H (0.8-1.3) mg/dL Est Cr Clr Drug Dosing 43.39 mL/min Estimated GFR (MDRD) 36.2 ml/min Glucose 332 H (74-106) mg/dL Calcium 8.7 (8.5-10.1) mg/dL Total Bilirubin 0.2 (0.2-1.0) mg/dL AST 28 (15-37) IU/L ALT 22 (14-63) IU/L Alkaline Phosphatase 106 (46-116) U/L Total Protein 6.3 L (6.4-8.2) g/dL Albumin 2.4 L (3.4-5.0) g/dL Globulin 3.9 (2.6-4.0) g/dL Albumin/Globulin Ratio 0.6 L (0.9-1.6) Lipase 45 L (73-393) U/L Urine Color Urine Appearance Urine pH (5.0-8.0) Ur Specific L[place]kin (1.001-1.035) Urine Protein (NEGATIVE) mg/dL Urine Glucose (UA) (NEGATIVE) mg/dL Urine Ketones (NEGATIVE) mg/dL Urine Occult Blood (NEGATIVE) Urine Nitrite (NEGATIVE) Urine Bilirubin (NEGATIVE) Urine Urobilinogen (<2.0) EU/dL Ur Leukocyte Esterase (NEGATIVE) Urine RBC (0-2/HPF) Urine WBC (0-5/HPF) Ur Epithelial Cells (NONE-FEW) Urine Bacteria (NEGATIVE) Urine Mucus (NONE-MOD) Ketones NEGATIVE (NEG) Blood Type Antibody Screen 11/27/19 11/27/19 11/27/19 Range/Units 09:42 10:15 10:40 WBC (4.0-11.0) K/uL RBC (4.50-5.90) M/uL Hgb (13.0-17.0) g/dL Hct (38.0-50.0) % MCV (80.0-98.0) fL MCH (27.0-32.0) pg MCHC (31.0-37.0) g/dL RDW Std Deviation (28.0-62.0) fl RDW Coeff of Dania (11.0-15.0) % Plt Count (150-400) K/uL MPV (7.40-12.00) fL Neut % (Auto) (48.0-80.0) % Lymph % (Auto) (16.0-40.0) % Ponce % (Auto) (0.0-15.0) % Eos % (Auto) (0.0-7.0) % Baso % (Auto) (0.0-1.5) % Neut # (Auto) (1.4-5.7) K/uL Lymph # (Auto) (0.6-2.4) K/uL Ponce # (Auto) (0.0-0.8) K/uL Eos # (Auto) (0.0-0.7) K/uL Baso # (Auto) (0.0-0.1) K/uL Nucleated RBC % /100WBC Nucleated RBCs # K/uL INR 0.97 VBG pH 7.54 H (7.31-7.41) VBG pCO2 32 L (35-45) mmHG VBG pO2 57 H (30-40) mmHG VBG HCO3 27 (22-30) mEq/L VBG Total CO2 25 L (41-51) mmol/L VBG Base Excess 4.8 H (-3.0-3.0) Sodium (136-148) mmol/L Potassium (3.5-5.1) mmol/L Chloride (98-107) mmol/L Carbon Dioxide (21.0-32.0) mmol/L BUN (7.0-18.0) mg/dL Creatinine (0.8-1.3) mg/dL Est Cr Clr Drug Dosing mL/min Estimated GFR (MDRD) ml/min Glucose (74-106) mg/dL Calcium (8.5-10.1) mg/dL Total Bilirubin (0.2-1.0) mg/dL AST (15-37) IU/L ALT (14-63) IU/L Alkaline Phosphatase (46-116) U/L Total Protein (6.4-8.2) g/dL Albumin (3.4-5.0) g/dL Globulin (2.6-4.0) g/dL Albumin/Globulin Ratio (0.9-1.6) Lipase (73-393) U/L Urine Color YELLOW Urine Appearance CLEAR Urine pH 7.0 (5.0-8.0) Ur Specific [place] 1.020 (1.001-1.035) Urine Protein >=300 H (NEGATIVE) mg/dL Urine Glucose (UA) >=1000 (NEGATIVE) mg/dL Urine Ketones TRACE H (NEGATIVE) mg/dL Urine Occult Blood SMALL H (NEGATIVE) Urine Nitrite NEGATIVE (NEGATIVE) Urine Bilirubin NEGATIVE (NEGATIVE) Urine Urobilinogen 0.2 (<2.0) EU/dL Ur Leukocyte Esterase NEGATIVE (NEGATIVE) Urine RBC 2-4 (0-2/HPF) Urine WBC 1-3 (0-5/HPF) Ur Epithelial Cells OCCASIONAL (NONE-FEW) Urine Bacteria FEW (NEGATIVE) Urine Mucus LIGHT (NONE-MOD) Ketones (NEG) Blood Type Antibody Screen 11/27/19 Range/Units 10:40 WBC (4.0-11.0) K/uL RBC (4.50-5.90) M/uL Hgb (13.0-17.0) g/dL Hct (38.0-50.0) % MCV (80.0-98.0) fL MCH (27.0-32.0) pg MCHC (31.0-37.0) g/dL RDW Std Deviation (28.0-62.0) fl RDW Coeff of Dania (11.0-15.0) % Plt Count (150-400) K/uL MPV (7.40-12.00) fL Neut % (Auto) (48.0-80.0) % Lymph % (Auto) (16.0-40.0) % Ponce % (Auto) (0.0-15.0) % Eos % (Auto) (0.0-7.0) % Baso % (Auto) (0.0-1.5) % Neut # (Auto) (1.4-5.7) K/uL Lymph # (Auto) (0.6-2.4) K/uL Ponce # (Auto) (0.0-0.8) K/uL Eos # (Auto) (0.0-0.7) K/uL Baso # (Auto) (0.0-0.1) K/uL Nucleated RBC % /100WBC Nucleated RBCs # K/uL INR VBG pH (7.31-7.41) VBG pCO2 (35-45) mmHG VBG pO2 (30-40) mmHG VBG HCO3 (22-30) mEq/L VBG Total CO2 (41-51) mmol/L VBG Base Excess (-3.0-3.0) Sodium (136-148) mmol/L Potassium (3.5-5.1) mmol/L Chloride (98-107) mmol/L Carbon Dioxide (21.0-32.0) mmol/L BUN (7.0-18.0) mg/dL Creatinine (0.8-1.3) mg/dL Est Cr Clr Drug Dosing mL/min Estimated GFR (MDRD) ml/min Glucose (74-106) mg/dL Calcium (8.5-10.1) mg/dL Total Bilirubin (0.2-1.0) mg/dL AST (15-37) IU/L ALT (14-63) IU/L Alkaline Phosphatase (46-116) U/L Total Protein (6.4-8.2) g/dL Albumin (3.4-5.0) g/dL Globulin (2.6-4.0) g/dL Albumin/Globulin Ratio (0.9-1.6) Lipase (73-393) U/L Urine Color Urine Appearance Urine pH (5.0-8.0) Ur Specific [place] (1.001-1.035) Urine Protein (NEGATIVE) mg/dL Urine Glucose (UA) (NEGATIVE) mg/dL Urine Ketones (NEGATIVE) mg/dL Urine Occult Blood (NEGATIVE) Urine Nitrite (NEGATIVE) Urine Bilirubin (NEGATIVE) Urine Urobilinogen (<2.0) EU/dL Ur Leukocyte Esterase (NEGATIVE) Urine RBC (0-2/HPF) Urine WBC (0-5/HPF) Ur Epithelial Cells (NONE-FEW) Urine Bacteria (NEGATIVE) Urine Mucus (NONE-MOD) Ketones (NEG) Blood Type O POSITIVE Antibody Screen NEGATIVE Meds: Medications Discontinued Medications Generic Name Dose Route Start Last Admin Trade Name Freq PRN Reason Stop Dose Admin Haloperidol Lactate 5 mg 11/27/19 09:36 11/27/19 09:47 Haldol IM 11/27/19 09:37 5 mg ONETIME ONE Administration Sodium Chloride 1,000 mls @ 1,000 mls/hr 11/27/19 09:30 11/27/19 09:47 Normal Saline IV 11/27/19 10:29 1,000 mls/hr .Bolus ONE Administration Departure - Departure Time of Disposition: 11:47 Disposition: Against Medical Advice 07 Condition: Good Clinical Impression: Abdominal pain, Upper GI bleed, Vomiting Hypertension Qualifiers: Hypertension type: essential hypertension Qualified Code(s): I10 - Essential ( primary) hypertension - Discharge Information *PRESCRIPTION DRUG MONITORING PROGRAM REVIEWED*: Not Applicable *COPY OF PRESCRIPTION DRUG MONITORING REPORT IN PATIENT IVELISSE: Not Applicable Instructions: Hematemesis, Abdominal Pain, Adult, [id number], Hypertension, [id number] Referrals: PCP,Ravindraobtain [Primary Care Provider] - Kilo Stanley [Ordering Only Provider] - 1 Day Chico Rodgers MD [Ordering Only Provider] - 1 Day Forms: ED Department Discharge, Refusal of Care AMA Sepsis Event Note - Evaluation Sepsis Screening Result: No Definite Risk - Focused Exam Vital Signs: Vital Signs Temp Pulse Resp BP Pulse Ox 11/27/19 11:30 102 H 18 188/115 H 97 11/27/19 10:45 97 18 179/109 H 97 11/27/19 10:15 101 H 18 206/115 H 96 11/27/19 09:30 125 H 20 203/131 H 100 11/27/19 09:20 97.6 F 128 H 30 H 203/131 H 98 Date Exam was Performed: 11/27/19 Time Exam was Performed: 14:07 - My Orders Last 24 Hours: My Active Orders 11/27/19 09:30 EKG Documentation Completion [RC] STAT 11/27/19 10:15 Gastrointestinal Tube Mgmt [RC] ASDIRECTED NG [Nasogastric Orogastric Tube Insertion] [OM.PC] Stat 11/27/19 10:24 Occult Blood Diagnostic GI [OCCULT BLOOD DIAGNOSTIC] [OP] Stat - Assessment/Plan Last 24 Hours: My Active Orders 11/27/19 09:30 EKG Documentation Completion [RC] STAT 11/27/19 10:15 Gastrointestinal Tube Mgmt [RC] ASDIRECTED NG [Nasogastric Orogastric Tube Insertion] [OM.PC] Stat 11/27/19 10:24 Occult Blood Diagnostic GI [OCCULT BLOOD DIAGNOSTIC] [OP] Stat
== END 2019-11-27 11:47 | disposition left against medical advice (07) ==
LOC: MW.ED 09:18
DX: K92.2 Gastrointestinal hemorrhage, unspecified (principal); R11.2 Nausea with vomiting, unspecified; I12.9 Hypertensive chronic kidney disease with stage 1 through stage 4 chronic kidney disease, or unspecified chronic kidney disease; E10.22 Type 1 diabetes mellitus with diabetic chronic kidney disease; N18.9 Chronic kidney disease, unspecified; E10.42 Type 1 diabetes mellitus with diabetic polyneuropathy; K21.9 Gastro-esophageal reflux disease without esophagitis; F41.9 Anxiety disorder, unspecified; Z91.018 Allergy to other foods; Z91.041 Radiographic dye allergy status; Z88.0 Allergy status to penicillin; Z88.8 Allergy status to other drugs, medicaments and biological substances; Z79.899 Other long term (current) drug therapy
CPT/HCPCS: 36415; 71045; 80053; 81001; 82009; 82803; 83690; 85025; 85610; 86850; 86900; 86901; 93005; 96360; 96372; 99285; J1630; J7030; 99284

== ENCOUNTER 2019-12-04 06:00 | Emergency (ER) | payer MEDICAID ==
--- NOTE | 2019-12-04 06:22 | EDM.PDOC ---
ED HPI GENERAL MEDICAL PROBLEM - General Chief Complaint: Abdominal Pain Stated Complaint: VOMITTING Time Seen by Provider: 12/04/19 06:20 Source of Information: Reports: Patient History Limitations: Reports: No Limitations - History of Present Illness INITIAL COMMENTS - FREE TEXT/NARRATIVE: Is a 34-year-old male who presents to the emergency room with abdominal pain. Patient states that he gets bouts of the epigastric pain and vomiting and now needs some medicine for that. Patient denies fever chills. Onset: Today Duration: Hour(s): Location: Reports: Abdomen Quality: Reports: Ache Severity: Moderate Improves with: Reports: None Worsens with: Reports: None Associated Symptoms: Reports: No Other Symptoms, Nausea/Vomiting Abdomen Pain Score (Numeric/FACES): 6 - Related Data Allergies Allergy/AdvReac Type Severity Reaction Status Date / Time shrimp Allergy Severe Swelling Verified 12/04/19 06:03 iodine Allergy Unknown Anaphylactic Verified 12/04/19 06:03 Shock Penicillins Allergy Unknown Anaphylactic Verified 12/04/19 06:03 Shock metoclopramide [From Reglan] Allergy Facial Verified 12/04/19 06:03 Spasms shellfish derived Allergy Anaphylactic Verified 12/04/19 06:03 Shock gluten Allergy Unknown Muscle Uncoded 12/04/19 06:03 Aches Home Meds: Home Meds Doxazosin [Cardura] 4 mg PO BEDTIME 09/29/19 [History] Metoprolol Succinate 200 mg PO DAILY 09/29/19 [History] Torsemide 20 mg PO DAILY 09/29/19 [History] atorvaSTATin [Lipitor] 80 mg PO BEDTIME 09/29/19 [History] hydrALAZINE [Apresoline] 25 mg PO TID 09/29/19 [History] Insulin Aspart [NovoLOG] 0 unit SUBCUT .UP TO 60 UN DAILY 09/30/19 [History] Metoclopramide [Reglan] 5 mg PO TIDAC #90 tablet 10/10/19 [Rx] Pantoprazole [ProTONIX] 40 mg PO DAILY #30 tab.cr 10/10/19 [Rx] Insulin Glarg,Human.Rec.Analog [Lantus] 35 unit SUBCUT BEDTIME 10/14/19 [History ] Past Medical History - Past Health History Medical/Surgical History: Denies Medical/Surgical History HEENT History: Reports: Impaired Vision Other HEENT History: blind right eye Cardiovascular History: Reports: Hypertension Respiratory History: Reports: None Gastrointestinal History: Reports: Gastritis, GERD, Hiatal Hernia, Other (See Below) Other Gastrointestinal History: h/o gastric ulcers, h/o hiatal hernia; gastroparesis Genitourinary History: Reports: Chronic Renal Insuffiency, Diabetic Nephropathy Musculoskeletal History: Reports: Amputation Neurological History: Reports: Neuropathy, Peripheral Other Neuro History: stroke Psychiatric History: Reports: Anxiety Endocrine/Metabolic History: Reports: Diabetes, Type I Other Endocrine/Metabolic History: brittle diabetic. History of hyperkalemia and DKA Insulin Pump Model and Configuration Release Manager: None Hematologic History: Reports: Anemia Immunologic History: Reports: None Oncologic (Cancer) History: Reports: None Dermatologic History: Reports: Other (See Below) Other Dermatologic History: diabetic foot ulcers - Infectious Disease History Infectious Disease History: Reports: Hepatitis C Other Infectious Disease History: 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 - Past Surgical History Head Surgeries/Procedures: Reports: None HEENT Surgical History: Reports: None Cardiovascular Surgical History: Reports: None Respiratory Surgical History: Reports: None GI Surgical History: Reports: None Male Surgical History: Reports: None Endocrine Surgical History: Reports: None Neurological Surgical History: Reports: None Musculoskeletal Surgical History: Reports: Other (See Below) Other Musculoskeletal Surgeries/Procedures:: right BKA Oncologic Surgical History: Reports: None Dermatological Surgical History: Reports: None Social & Family History - Family History Family Medical History: Noncontributory Cardiac: Reports: High Cholesterol, Hypertension OBGYN: Reports: Neurological: Reports: None Psychiatric: Reports: Anxiety - Tobacco Use Smoking Status *Q: Never Smoker - Caffeine Use Caffeine Use: Reports: Coffee, Energy Drinks, Soda, Tea Other Caffeine Use: daily Caffeine Use Comment: patient is uncooperated - Recreational Drug Use Recreational Drug Use: Yes Drug Use in Last 12 Months: Yes Recreational Drug Type: Reports: Marijuana/Hashish - Living Situation & Occupation Living situation: Reports: Single Occupation: Employed (Currently unemployed.) ED [facility] GENERAL - Review of Systems Review Of Systems: See Below Constitutional: Reports: No Symptoms HEENT: Reports: No Symptoms Respiratory: Reports: No Symptoms Cardiovascular: Reports: No Symptoms Endocrine: Reports: No Symptoms GI/Abdominal: Reports: Abdominal Pain, Nausea, Vomiting : Reports: No Symptoms Musculoskeletal: Reports: No Symptoms Skin: Reports: No Symptoms Neurological: Reports: No Symptoms Psychiatric: Reports: No Symptoms Hematologic/Lymphatic: Reports: No Symptoms Immunologic: Reports: No Symptoms ED EXAM, GI/ABD - Physical Exam Exam: See Below Exam Limited By: No Limitations General Appearance: Alert, WD/WN, No Apparent Distress Ears: Normal External Exam, Normal Canal, Hearing Grossly Normal Nose: Normal Inspection Throat/Mouth: Normal Inspection, Normal Lips Head: Atraumatic, Normocephalic Neck: Normal Inspection, Supple, Non-Tender Respiratory/Chest: No Respiratory Distress, Lungs Clear, No Accessory Muscle Use , Chest Non-Tender Cardiovascular: Normal Peripheral Pulses, Regular Rate, Rhythm, No JVD GI/Abdominal Exam: Normal Bowel Sounds, Soft, Non-Tender (Male) Exam: Deferred Back Exam: Normal Inspection, Full Range of Motion Extremities: Normal Inspection, Normal Range of Motion Neurological: Alert, Oriented, CN II-XII Intact, Normal Cognition Psychiatric: Normal Affect, Normal Mood Skin Exam: Warm, Dry, Intact Course - Vital Signs Text/Narrative:: 34-year-old gentleman who presents to the emergency room with epigastric pain. Last Recorded V/S: Last Vital Signs Temp 96.8 F L 12/04/19 06:03 Pulse 98 12/04/19 06:03 Resp 18 12/04/19 06:03 BP 201/127 H 12/04/19 06:03 Pulse Ox 98 12/04/19 06:03 - Orders/Labs/Meds Orders: Active Orders 24 hr Category Date Time Status COMPREHENSIVE METABOLIC PN,CMP [CHEM] Stat Lab 12/04/19 06:15 Received LIPASE [CHEM] Stat Lab 12/04/19 06:15 Received Sodium Chloride 0.9% [Normal Saline] 1,000 ml Med 12/04/19 06:23 Active IV .Bolus Medication Orders Sodium Chloride (Normal Saline) 1,000 mls @ 1,000 mls/hr IV .Bolus ONE Stop: 12/04/19 07:22 Last Admin: 12/04/19 06:28 Dose: 1,000 mls/hr Labs: Laboratory Tests 12/04/19 Range/Units 06:15 WBC 8.01 (4.0-11.0) K/uL RBC 4.71 (4.50-5.90) M/uL Hgb 10.0 L (13.0-17.0) g/dL Hct 31.7 L (38.0-50.0) % MCV 67.3 L (80.0-98.0) fL MCH 21.2 L (27.0-32.0) pg MCHC 31.5 (31.0-37.0) g/dL RDW Std Deviation 38.0 (28.0-62.0) fl RDW Coeff of Dania 16 H (11.0-15.0) % Plt Count 440 H (150-400) K/uL MPV 10.00 (7.40-12.00) fL Neut % (Auto) 73.5 (48.0-80.0) % Lymph % (Auto) 19.9 (16.0-40.0) % Meade % (Auto) 5.4 (0.0-15.0) % Eos % (Auto) 1.0 (0.0-7.0) % Baso % (Auto) 0.2 (0.0-1.5) % Neut # (Auto) 5.9 H (1.4-5.7) K/uL Lymph # (Auto) 1.6 (0.6-2.4) K/uL [place]ade # (Auto) 0.4 (0.0-0.8) K/uL Eos # (Auto) 0.1 (0.0-0.7) K/uL Baso # (Auto) 0.0 (0.0-0.1) K/uL Nucleated RBC % 0.0 /100WBC Nucleated RBCs # 0 K/uL Meds: Medications Generic Name Dose Route Start Last Admin Trade Name Freq PRN Reason Stop Dose Admin Sodium Chloride 1,000 mls @ 1,000 mls/hr 12/04/19 06:23 12/04/19 06:28 Normal Saline IV 12/04/19 07:22 1,000 mls/hr .Bolus ONE Administration Discontinued Medications Generic Name Dose Route Start Last Admin Trade Name Freq PRN Reason Stop Dose Admin Diphenhydramine HCl 50 mg 12/04/19 06:26 12/04/19 06:32 Benadryl PO 12/04/19 06:27 Not Given ONETIME ONE Diphenhydramine HCl 50 mg 12/04/19 06:30 12/04/19 06:33 Benadryl IVPUSH 12/04/19 06:31 50 mg ONETIME ONE Administration Ondansetron HCl 4 mg 12/04/19 06:23 12/04/19 06:28 Zofran IVPUSH 12/04/19 06:24 4 mg ONETIME ONE Administration Departure - Departure Time of Disposition: 06:59 Disposition: Home, Self-Care 01 Condition: Good Clinical Impression: Gastritis, Esophagitis, Gastroparesis - Discharge Information Instructions: Nausea and Vomiting, Adult, [id number] Referrals: PCP,None [Primary Care Provider] - Forms: ED Department Discharge Sepsis Event Note - Evaluation Sepsis Screening Result: No Definite Risk - Focused Exam Vital Signs: Vital Signs Temp Pulse Resp BP Pulse Ox 12/04/19 06:03 96.8 F L 98 18 201/127 H 98 Date Exam was Performed: 12/04/19 Time Exam was Performed: 06:52 - My Orders Last 24 Hours: My Active Orders 12/04/19 06:15 COMPREHENSIVE METABOLIC PN,CMP [CHEM] Stat LIPASE [CHEM] Stat 12/04/19 06:23 Sodium Chloride 0.9% [Normal Saline] 1,000 ml IV .Bolus - Assessment/Plan Last 24 Hours: My Active Orders 12/04/19 06:15 COMPREHENSIVE METABOLIC PN,CMP [CHEM] Stat LIPASE [CHEM] Stat 12/04/19 06:23 Sodium Chloride 0.9% [Normal Saline] 1,000 ml IV .Bolus
[2019-12-04] MEDS ORDERED: Sodium Chloride 0.9% 1,000 ML IV ONE (06:23)
[2019-12-04] MEDS ORDERED: Ondansetron 4 MG/2 ML SDV IVPUSH ONE (06:23)
[2019-12-04] MEDS ORDERED: diphenhydrAMINE 50 MG Cap PO ONE (06:26)
[2019-12-04] MEDS ORDERED: diphenhydrAMINE 50 MG/ML SDV IVPUSH ONE (06:30)
[2019-12-04 06:43] LABS: POTASSIUM,K 3.9 mmol/L (3.5-5.1)
[2019-12-04] MEDS ORDERED: hydrALAZINE 20 MG/ML SDV IVPUSH ONE (07:14)
[2019-12-04 08:24] VITALS: BP 178/105; PULSE 99
== END 2019-12-04 08:24 | disposition home or self-care (01) ==
LOC: MW.ED 06:00
DX: K29.70 Gastritis, unspecified, without bleeding (principal); K20.9 Esophagitis, unspecified; E10.43 Type 1 diabetes mellitus with diabetic autonomic (poly)neuropathy; K31.84 Gastroparesis; E10.42 Type 1 diabetes mellitus with diabetic polyneuropathy; I10 Essential (primary) hypertension; K21.9 Gastro-esophageal reflux disease without esophagitis; Z91.09 Other allergy status, other than to drugs and biological substances; Z88.0 Allergy status to penicillin; Z91.013 Allergy to seafood; Z88.8 Allergy status to other drugs, medicaments and biological substances; Z79.899 Other long term (current) drug therapy
CPT/HCPCS: 36415; 80053; 82962; 83690; 85025; 96361; 96374; 96375; 99284; J0360; J1200; J2405; J7030

== ENCOUNTER 2019-12-04 11:03 | Observation (INO) | payer MEDICAID ==
[2019-12-04] MEDS ORDERED: HALOPERIDOL DECANOATE 100 MG/1 ML IM ONE (11:17)
[2019-12-04] MEDS ORDERED: Sodium Chloride 0.9% 1,000 ML IV ONE (11:18)
[2019-12-04] MEDS ORDERED: Haloperidol Lactate 5 MG/ML SDV IM ONE ×3 (11:30→16:51)
[2019-12-04 12:50] LABS: CARBON DIOXIDE,CO2 21.3 mmol/L (21.0-32.0); POTASSIUM,K 3.8 mmol/L (3.5-5.1)
--- NOTE | 2019-12-04 14:23 | EDM.PDOC ---
ED HPI GENERAL MEDICAL PROBLEM - General Chief Complaint: Gastrointestinal Problem Stated Complaint: COUGHING UP BLOOD Time Seen by Provider: 12/04/19 11:12 Source of Information: Reports: Patient History Limitations: Reports: No Limitations - History of Present Illness INITIAL COMMENTS - FREE TEXT/NARRATIVE: Multiple ED visits for same complaints. Patient has a history of gastroparesis chronic abdominal pain opioid abuse noncompliant with treatment diabetes hypertension. States he has been vomiting. His usual abdominal pain. No changes. Denies other associated symptoms. Patient states he is vomiting blood but he is not ( i looked at his vomit-non bloody) stomach Pain Score (Numeric/FACES): 10 - Related Data Allergies Allergy/AdvReac Type Severity Reaction Status Date / Time shrimp Allergy Severe Swelling Verified 12/04/19 11:14 iodine Allergy Unknown Anaphylactic Verified 12/04/19 11:14 Shock Penicillins Allergy Unknown Anaphylactic Verified 12/04/19 11:14 Shock metoclopramide [From Reglan] Allergy Facial Verified 12/04/19 11:14 Spasms shellfish derived Allergy Anaphylactic Verified 12/04/19 11:14 Shock gluten Allergy Unknown Muscle Uncoded 12/04/19 11:14 Aches Home Meds: Home Meds Doxazosin [Cardura] 4 mg PO BEDTIME 09/29/19 [History] Metoprolol Succinate 200 mg PO DAILY 09/29/19 [History] Torsemide 20 mg PO DAILY 09/29/19 [History] atorvaSTATin [Lipitor] 80 mg PO BEDTIME 09/29/19 [History] hydrALAZINE [Apresoline] 25 mg PO TID 09/29/19 [History] Insulin Aspart [NovoLOG] 0 unit SUBCUT .UP TO 60 UN DAILY 09/30/19 [History] Metoclopramide [Reglan] 5 mg PO TIDAC #90 tablet 10/10/19 [Rx] Pantoprazole [ProTONIX] 40 mg PO DAILY #30 tab.cr 10/10/19 [Rx] Insulin Glarg,Human.Rec.Analog [Lantus] 35 unit SUBCUT BEDTIME 10/14/19 [History ] Ondansetron [Zofran ODT] 4 mg PO Q6H PRN #20 tab.dis 12/04/19 [Rx] Past Medical History - Past Health History Medical/Surgical History: Denies Medical/Surgical History HEENT History: Reports: Impaired Vision Other HEENT History: blind right eye Cardiovascular History: Reports: Hypertension Respiratory History: Reports: None Gastrointestinal History: Reports: Gastritis, GERD, Hiatal Hernia, Other (See Below) Other Gastrointestinal History: h/o gastric ulcers, h/o hiatal hernia; gastroparesis Genitourinary History: Reports: Chronic Renal Insuffiency, Diabetic Nephropathy Musculoskeletal History: Reports: Amputation Neurological History: Reports: Neuropathy, Peripheral Other Neuro History: stroke Psychiatric History: Reports: Anxiety Endocrine/Metabolic History: Reports: Diabetes, Type I Other Endocrine/Metabolic History: brittle diabetic. History of hyperkalemia and DKA Insulin Pump Model and Application Development Intern: None Hematologic History: Reports: Anemia Immunologic History: Reports: None Oncologic (Cancer) History: Reports: None Dermatologic History: Reports: Other (See Below) Other Dermatologic History: diabetic foot ulcers - Infectious Disease History Infectious Disease History: Reports: Hepatitis C Other Infectious Disease History: 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 - Past Surgical History Head Surgeries/Procedures: Reports: None HEENT Surgical History: Reports: None Cardiovascular Surgical History: Reports: None Respiratory Surgical History: Reports: None GI Surgical History: Reports: None Male Surgical History: Reports: None Endocrine Surgical History: Reports: None Neurological Surgical History: Reports: None Musculoskeletal Surgical History: Reports: Other (See Below) Other Musculoskeletal Surgeries/Procedures:: right BKA Oncologic Surgical History: Reports: None Dermatological Surgical History: Reports: None Social & Family History - Family History Family Medical History: Noncontributory Cardiac: Reports: High Cholesterol, Hypertension OBGYN: Reports: Neurological: Reports: None Psychiatric: Reports: Anxiety - Tobacco Use Smoking Status *Q: Unknown Ever Smoked - Caffeine Use Caffeine Use: Reports: Coffee, Energy Drinks, Soda, Tea Other Caffeine Use: daily Caffeine Use Comment: patient is uncooperated - Living Situation & Occupation Living situation: Reports: Single Occupation: Employed (Currently unemployed.) ED ROS GENERAL - Review of Systems Review Of Systems: Comprehensive ROS is negative, except as noted in HPI. ED EXAM, GI/ABD - Physical Exam Exam: See Below Exam Limited By: No Limitations General Appearance: Alert Ears: Normal External Exam Nose: Normal Inspection Head: Atraumatic Neck: Normal Inspection, Supple Respiratory/Chest: No Respiratory Distress, Lungs Clear Cardiovascular: Regular Rate, Rhythm, No Gallop, No JVD, No Murmur, No Rub GI/Abdominal Exam: Soft, Non-Tender Back Exam: Normal Inspection Neurological: Alert, Oriented Psychiatric: Normal Affect Skin Exam: Warm Course - Vital Signs Last Recorded V/S: Last Vital Signs Temp 97.2 F 12/04/19 11:10 Pulse 113 H 12/04/19 15:57 Resp 16 12/04/19 15:57 BP 169/100 H 12/04/19 14:34 Pulse Ox 98 12/04/19 16:46 - Orders/Labs/Meds Orders: Active Orders 24 hr Category Date Time Status Admission Status [Patient Status] [ADT] Stat ADT 12/04/19 15:47 Active Medication Orders Albuterol/Ipratropium (Duoneb 3.0-0.5 Mg/3 Ml) 3 ml NEB Q4HRRT PRN PRN Reason: Shortness Of Breath/wheezing Diphenhydramine HCl (Benadryl) 25 mg IM Q4H PRN PRN Reason: Agitation Last Admin: 12/04/19 18:19 Dose: 25 mg Haloperidol Lactate (Haldol) 5 mg IM Q8H PRN PRN Reason: Agitation Last Admin: 12/04/19 18:06 Dose: 5 mg Hydromorphone HCl (Dilaudid) 1 mg IVPUSH Q4H PRN PRN Reason: Pain (severe 7-10) Last Admin: 12/04/19 17:57 Dose: 1 mg Lactated Ringer's (Ringers, Lactated) 1,000 mls @ 125 mls/hr IV ASDIRECTED MICHAEL Last Admin: 12/04/19 18:22 Dose: 125 mls/hr Pantoprazole Sodium 40 mg/ (Sodium Chloride) 10 mls @ 300 mls/hr IV BID MICHAEL Insulin Aspart (Novolog) 0 unit SUBCUT TIDAC MICHAEL; Protocol Last Admin: 12/04/19 18:13 Dose: 15 units Labetalol HCl (Normodyne) 10 mg IVPUSH Q4H PRN; Protocol PRN Reason: Hypertension Ondansetron HCl (Zofran) 4 mg IVPUSH Q6H PRN PRN Reason: Nausea/Vomiting Last Admin: 12/04/19 18:04 Dose: 4 mg Labs: Laboratory Tests 12/04/19 12/04/19 Range/Units 11:55 11:55 WBC 11.03 H (4.0-11.0) K/uL RBC 4.76 (4.50-5.90) M/uL Hgb 10.1 L (13.0-17.0) g/dL Hct 32.0 L (38.0-50.0) % MCV 67.2 L (80.0-98.0) fL MCH 21.2 L (27.0-32.0) pg MCHC 31.6 (31.0-37.0) g/dL RDW Std Deviation 38.1 (28.0-62.0) fl RDW Coeff of Dania 16 H (11.0-15.0) % Plt Count 449 H (150-400) K/uL MPV 10.40 (7.40-12.00) fL Neut % (Auto) 80.8 H (48.0-80.0) % Lymph % (Auto) 13.8 L (16.0-40.0) % Centre % (Auto) 4.8 (0.0-15.0) % Eos % (Auto) 0.3 (0.0-7.0) % Baso % (Auto) 0.3 (0.0-1.5) % Neut # (Auto) 8.9 H (1.4-5.7) K/uL Lymph # (Auto) 1.5 (0.6-2.4) K/uL [place] # (Auto) 0.5 (0.0-0.8) K/uL Eos # (Auto) 0.0 (0.0-0.7) K/uL Baso # (Auto) 0.0 (0.0-0.1) K/uL Nucleated RBC % 0.0 /100WBC Nucleated RBCs # 0 K/uL Sodium 138 (136-148) mmol/L Potassium 3.8 (3.5-5.1) mmol/L Chloride 104 (98-107) mmol/L Carbon Dioxide 21.3 (21.0-32.0) mmol/L BUN 22 H (7.0-18.0) mg/dL Creatinine 2.4 H (0.8-1.3) mg/dL Est Cr Clr Drug Dosing 42.35 mL/min Estimated GFR (MDRD) 38.0 ml/min Glucose 368 H (74-106) mg/dL Calcium 8.4 L (8.5-10.1) mg/dL Total Bilirubin 0.2 (0.2-1.0) mg/dL AST 33 (15-37) IU/L ALT 21 (14-63) IU/L Alkaline Phosphatase 98 (46-116) U/L Total Protein 6.0 L (6.4-8.2) g/dL Albumin 2.3 L (3.4-5.0) g/dL Globulin 3.7 (2.6-4.0) g/dL Albumin/Globulin Ratio 0.6 L (0.9-1.6) Lipase 36 L (73-393) U/L Meds: Medications Generic Name Dose Route Start Last Admin Trade Name Freq PRN Reason Stop Dose Admin Albuterol/Ipratropium 3 ml 12/04/19 16:45 Duoneb 3.0-0.5 Mg/3 Ml NEB Q4HRRT PRN Shortness Of Breath/wheezing Diphenhydramine HCl 25 mg 12/04/19 16:48 12/04/19 18:19 Benadryl IM 25 mg Q4H PRN Administration Agitation Haloperidol Lactate 5 mg 12/04/19 16:48 12/04/19 18:06 Haldol IM 5 mg Q8H PRN Administration Agitation Hydromorphone HCl 1 mg 12/04/19 16:45 12/04/19 17:57 Dilaudid IVPUSH 1 mg Q4H PRN Administration Pain (severe 7-10) Lactated Ringer's 1,000 mls @ 125 mls/hr 12/04/19 16:45 12/04/19 18:22 Ringers, Lactated IV 125 mls/hr ASDIRECTED MICHAEL Administration Pantoprazole Sodium 40 mg/ 10 mls @ 300 mls/hr 12/04/19 21:00 Sodium Chloride IV BID MICHAEL Insulin Aspart 0 unit 12/04/19 17:00 12/04/19 18:13 Novolog SUBCUT 15 units TIDAC MICHAEL Administration Protocol Labetalol HCl 10 mg 12/04/19 17:36 Normodyne IVPUSH Q4H PRN Hypertension Protocol Ondansetron HCl 4 mg 12/04/19 16:45 12/04/19 18:04 Zofran IVPUSH 4 mg Q6H PRN Administration Nausea/Vomiting Discontinued Medications Generic Name Dose Route Start Last Admin Trade Name Juan Pabloq PRN Reason Stop Dose Admin Haloperidol Decanoate 5 mg 12/04/19 11:17 12/04/19 11:54 Haldol Decanoate IM 12/04/19 11:18 Not Given ONETIME ONE Haloperidol Lactate 5 mg 12/04/19 11:30 12/04/19 11:53 Haldol IM 12/04/19 11:31 5 mg ONETIME ONE Administration Haloperidol Lactate 5 mg 12/04/19 16:48 12/04/19 17:03 Haldol IM 12/04/19 16:49 5 mg ONETIME ONE Administration Haloperidol Lactate 5 mg 12/04/19 16:51 12/04/19 17:03 Haldol IM 12/04/19 16:52 Not Given ONETIME ONE Sodium Chloride 1,000 mls @ 999 mls/hr 12/04/19 11:18 12/04/19 11:54 Normal Saline IV 12/04/19 12:18 999 mls/hr .BOLUS ONE Administration Promethazine HCl 25 mg 12/04/19 15:34 12/04/19 15:54 Phenergan IM 12/04/19 15:35 25 mg ONETIME ONE Administration - Re-Assessments/Exams Free Text/Narrative Re-Assessment/Exam: 12/04/19 16:27 symptoms likely secondary to gastroparesis. no significant leukocytosis to suggest surgical pathology. patient was given haldol IM to good effect, agreed to be discharged, then developed the pain. hemoglobin is stable. no pasquale hematemsesis here. will be admitted for failure to tolerate PO. Dsicussed with Dr Means. Departure - Departure Time of Disposition: 16:31 Disposition: Admitted As Inpatient 67 Clinical Impression: Gastroparesis, Vomiting - Discharge Information Sepsis Event Note - Evaluation Sepsis Screening Result: No Definite Risk - Focused Exam Vital Signs: Vital Signs Temp Pulse Resp BP Pulse Ox 12/04/19 15:57 113 H 16 94 L 12/04/19 14:34 111 H 16 169/100 H 96 12/04/19 11:10 97.2 F 128 H 22 H 211/136 H 100 Date Exam was Performed: 12/04/19 Time Exam was Performed: 21:34 - My Orders Last 24 Hours: My Active Orders 12/04/19 15:47 Admission Status [Patient Status] [ADT] Stat - Assessment/Plan Last 24 Hours: My Active Orders 12/04/19 15:47 Admission Status [Patient Status] [ADT] Stat
[2019-12-04] MEDS ORDERED: Promethazine 25 MG/ML SDV IM ONE (15:34)
[2019-12-04] MEDS ORDERED: Albuterol/Ipratropium 3.0-0.5 MG/3 ML Neb Soln NEB PRN (16:45)
[2019-12-04] MEDS ORDERED: diphenhydrAMINE 50 MG/ML SDV IM PRN (16:48)
--- NOTE | 2019-12-04 16:53 | PCM.HP.2 ---
H&P History of Present Illness - General Date of Service: 12/04/19 Admit Problem/Dx: Admission Diagnosis/Problem Admission Diagnosis/Problem Gastroparesis - History of Present Illness Initial Comments - Free Text/Narative: The patient is a 34 year old male who past medical history of diabetes, gastroparesis, chronic abdominal pain, cyclic vomiting, and HTN who presented to the ER with diffuse abdominal pain, reported hematemesis. Denies fever/chills , chest pain, shortness of breath, black/bloody stools. Several previous admissions for the same complaints. Reports he is taking his insulin and anti- hypertensive but not able to tell me the dose. In the ER, work up revealed chronic anemia , mildly elevated white count. He was hyperglycemia in 300s, EKG showed sinus tachy but no ST elevation, lipase was normal. In the ER BP was elevated in 200s, received Haldol, Phenergan which helped to calm him down and helped to lower his BP. He was about to be discharged, when he started wailing and c/o of abdominal pain. Patient is admitted for intractable abdominal pain. stomach Pain Score (Numeric/FACES): 10 - Related Data Allergies/Adverse Reactions: Allergies Allergy/AdvReac Type Severity Reaction Status Date / Time shrimp Allergy Severe Swelling Verified 12/04/19 11:14 iodine Allergy Unknown Anaphylactic Verified 12/04/19 11:14 Shock Penicillins Allergy Unknown Anaphylactic Verified 12/04/19 11:14 Shock metoclopramide [From Reglan] Allergy Facial Verified 12/04/19 11:14 Spasms shellfish derived Allergy Anaphylactic Verified 12/04/19 11:14 Shock gluten Allergy Unknown Muscle Uncoded 12/04/19 11:14 Aches Home Medications: Home Meds Doxazosin [Cardura] 4 mg PO BEDTIME 09/29/19 [History] Metoprolol Succinate 200 mg PO DAILY 09/29/19 [History] Torsemide 20 mg PO DAILY 09/29/19 [History] atorvaSTATin [Lipitor] 80 mg PO BEDTIME 09/29/19 [History] hydrALAZINE [Apresoline] 25 mg PO TID 09/29/19 [History] Insulin Aspart [NovoLOG] 0 unit SUBCUT .UP TO 60 UN DAILY 09/30/19 [History] Metoclopramide [Reglan] 5 mg PO TIDAC #90 tablet 10/10/19 [Rx] Pantoprazole [ProTONIX] 40 mg PO DAILY #30 tab.cr 10/10/19 [Rx] Insulin Glarg,Human.Rec.Analog [Lantus] 35 unit SUBCUT BEDTIME 10/14/19 [History ] Ondansetron [Zofran ODT] 4 mg PO Q6H PRN #20 tab.dis 12/04/19 [Rx] Past Medical History - Past Health History Medical/Surgical History: Denies Medical/Surgical History HEENT History: Reports: Impaired Vision Other HEENT History: blind right eye Cardiovascular History: Reports: Hypertension Respiratory History: Reports: None Gastrointestinal History: Reports: Gastritis, GERD, Hiatal Hernia, Other (See Below) Other Gastrointestinal History: h/o gastric ulcers, h/o hiatal hernia; gastroparesis Genitourinary History: Reports: Chronic Renal Insuffiency, Diabetic Nephropathy Musculoskeletal History: Reports: Amputation Neurological History: Reports: Neuropathy, Peripheral Other Neuro History: stroke Psychiatric History: Reports: Anxiety Endocrine/Metabolic History: Reports: Diabetes, Type I Other Endocrine/Metabolic History: brittle diabetic. 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 - Past Surgical History Head Surgeries/Procedures: Reports: None HEENT Surgical History: Reports: None Cardiovascular Surgical History: Reports: None Respiratory Surgical History: Reports: None GI Surgical History: Reports: None Male Surgical History: Reports: None Endocrine Surgical History: Reports: None Neurological Surgical History: Reports: None Musculoskeletal Surgical History: Reports: Other (See Below) Other Musculoskeletal Surgeries/Procedures:: right BKA Oncologic Surgical History: Reports: None Dermatological Surgical History: Reports: None Social & Family History - Family History Family Medical History: Noncontributory Cardiac: Reports: High Cholesterol, Hypertension OBGYN: Reports: Neurological: Reports: None Psychiatric: Reports: Anxiety - Tobacco Use Smoking Status *Q: Unknown Ever Smoked - Caffeine Use Caffeine Use: Reports: Coffee, Energy Drinks, Soda, Tea Other Caffeine Use: daily Caffeine Use Comment: patient is uncooperated - Living Situation & Occupation Living situation: Reports: Single Occupation: Employed (Currently unemployed.) H&P Review of Systems - Review of Systems: Review Of Systems: Unable To Obtain Exam - Exam Exam: See Below - Vital Signs Vital Signs: Last Vital Signs Temp 36.2 C 12/04/19 11:10 Pulse 113 H 12/04/19 15:57 Resp 16 12/04/19 15:57 BP 169/100 H 12/04/19 14:34 Pulse Ox 94 L 12/04/19 15:57 Weight: 100 kg - Exam General: Alert, Oriented, Moderate Distress Neck: Supple, Trachea Midline Lungs: Clear to Auscultation, Normal Respiratory Effort Cardiovascular: Regular Rhythm, Normal S1, Normal S2, Tachycardia - Patient Data Lab Results Last 24 hrs: Laboratory Results - last 24 hr 12/04/19 12/04/19 Range/Units 11:55 11:55 WBC 11.03 H (4.0-11.0) K/uL RBC 4.76 (4.50-5.90) M/uL Hgb 10.1 L (13.0-17.0) g/dL Hct 32.0 L (38.0-50.0) % MCV 67.2 L (80.0-98.0) fL MCH 21.2 L (27.0-32.0) pg MCHC 31.6 (31.0-37.0) g/dL RDW Std Deviation 38.1 (28.0-62.0) fl RDW Coeff of Dania 16 H (11.0-15.0) % Plt Count 449 H (150-400) K/uL MPV 10.40 (7.40-12.00) fL Neut % (Auto) 80.8 H (48.0-80.0) % Lymph % (Auto) 13.8 L (16.0-40.0) % [place] % (Auto) 4.8 (0.0-15.0) % Eos % (Auto) 0.3 (0.0-7.0) % Baso % (Auto) 0.3 (0.0-1.5) % Neut # (Auto) 8.9 H (1.4-5.7) K/uL Lymph # (Auto) 1.5 (0.6-2.4) K/uL [place] # (Auto) 0.5 (0.0-0.8) K/uL Eos # (Auto) 0.0 (0.0-0.7) K/uL Baso # (Auto) 0.0 (0.0-0.1) K/uL Nucleated RBC % 0.0 /100WBC Nucleated RBCs # 0 K/uL Sodium 138 (136-148) mmol/L Potassium 3.8 (3.5-5.1) mmol/L Chloride 104 (98-107) mmol/L Carbon Dioxide 21.3 (21.0-32.0) mmol/L BUN 22 H (7.0-18.0) mg/dL Creatinine 2.4 H (0.8-1.3) mg/dL Est Cr Clr Drug Dosing 42.35 mL/min Estimated GFR (MDRD) 38.0 ml/min Glucose 368 H (74-106) mg/dL Calcium 8.4 L (8.5-10.1) mg/dL Total Bilirubin 0.2 (0.2-1.0) mg/dL AST 33 (15-37) IU/L ALT 21 (14-63) IU/L Alkaline Phosphatase 98 (46-116) U/L Total Protein 6.0 L (6.4-8.2) g/dL Albumin 2.3 L (3.4-5.0) g/dL Globulin 3.7 (2.6-4.0) g/dL Albumin/Globulin Ratio 0.6 L (0.9-1.6) Lipase 36 L (73-393) U/L Result Diagrams: 12/04/19 11:55 12/04/19 11:55 Sepsis Event Note - Evaluation Sepsis Screening Result: No Definite Risk - Focused Exam Vital Signs: Vital Signs Temp Pulse Resp BP Pulse Ox 12/04/19 15:57 113 H 16 94 L 12/04/19 14:34 111 H 16 169/100 H 96 12/04/19 11:10 36.2 C 128 H 22 H 211/136 H 100 Date Exam was Performed: 12/04/19 Time Exam was Performed: 17:37 - Problem List (1) Intractable nausea and vomiting SNOMED Code(s): 595091246 ICD Code: R11.2 - NAUSEA WITH VOMITING, UNSPECIFIED Status: Acute Priority: High Current Visit: No (2) Gastroparesis SNOMED Code(s): 441008960 ICD Code: K31.84 - GASTROPARESIS Status: Acute Priority: High Current Visit: Yes (3) Abdominal pain SNOMED Code(s): 85620223 ICD Code: R10.9 - UNSPECIFIED ABDOMINAL PAIN Status: Acute Current Visit : No (4) Drug-seeking behavior SNOMED Code(s): 842951928 ICD Code: Z76.5 - MALINGERER [CONSCIOUS SIMULATION] Status: Acute Current Visit: No (5) Hyperglycemia due to type 1 diabetes mellitus SNOMED Code(s): 929853413750078, 306774605706774 ICD Code: E10.65 - TYPE 1 DIABETES MELLITUS WITH HYPERGLYCEMIA Status: Acute Current Visit: No (6) Hypertensive emergency SNOMED Code(s): 555480042986190 ICD Code: I16.1 - HYPERTENSIVE EMERGENCY Status: Acute Current Visit: No (7) Medical non-compliance SNOMED Code(s): 929000628 ICD Code: Z91.19 - PATIENT'S NONCOMPLIANCE W OTH MEDICAL TREATMENT AND REGIMEN Status: Acute Current Visit: No (8) Renal insufficiency SNOMED Code(s): 825662793, 642297158 ICD Code: N28.9 - DISORDER OF KIDNEY AND URETER, UNSPECIFIED Status: Acute Current Visit: No (9) Hypertension SNOMED Code(s): 42454457 ICD Code: I10 - ESSENTIAL (PRIMARY) HYPERTENSION Status: Chronic Current Visit: No Qualifiers: Hypertension type: essential hypertension Qualified Code(s): I10 - Essential (primary) hypertension (10) S/P BKA (below knee amputation) unilateral SNOMED Code(s): 842707699, 45888858, 224365380 ICD Code: Z89.519 - ACQUIRED ABSENCE OF UNSPECIFIED LEG BELOW KNEE Status: Chronic Priority: Medium Current Visit: No Problem List Initiated/Reviewed/Updated: Yes Orders Last 24hrs: Active Orders 24 hr Category Date Time Status Admission Status [Patient Status] [ADT] Stat ADT 12/04/19 15:47 Active Ambulate [RC] ASDIRECTED Care 12/04/19 16:45 Active Antiembolic Devices [RC] PER UNIT ROUTINE Care 12/04/19 16:47 Active Blood Glucose Check, Bedside [RC] WITHMEALSANDBED Care 12/04/19 16:45 Active Oxygen Therapy [RC] PRN Care 12/04/19 16:45 Active Pulse Oximetry [RC] PRN Care 12/04/19 16:45 Active RT Aerosol Therapy [RC] ASDIRECTED Care 12/04/19 16:47 Active VTE/DVT Education [RC] PER UNIT ROUTINE Care 12/04/19 16:45 Active Vital Signs [RC] Q4H Care 12/04/19 16:45 Active Clear Liquid Diet [DIET] Diet 12/05/19 Breakfast Active Albuterol/Ipratropium [DuoNeb 3.0-0.5 MG/3 ML] Med 12/04/19 16:45 Ordered 3 ml NEB Q4HRRT PRN HYDROmorphone [Dilaudid] Med 12/04/19 16:45 Ordered 1 mg IVPUSH Q4H PRN Haloperidol Lactate [Haldol] Med 12/04/19 16:48 Ordered 5 mg IM Q8H PRN Insulin Aspart [NovoLOG] Med 12/04/19 17:00 Ordered See Protocol SUBCUT TIDAC Lactated Ringers [Ringers, Lactated] 1,000 ml Med 12/04/19 16:45 Ordered IV ASDIRECTED Ondansetron [Zofran] Med 12/04/19 16:45 Ordered 4 mg IVPUSH Q6H PRN Pantoprazole [ProTONIX IV] 40 mg Med 12/04/19 21:00 Ordered Sodium Chloride 0.9% [Normal Saline] 10 ml IV BID diphenhydrAMINE [Benadryl] Med 12/04/19 16:48 Ordered 25 mg IM Q4H PRN Sequential Compression Device [OM.PC] Per Unit Routine Oth 12/04/19 16:46 Ordered Resuscitation Status Routine Resus Stat 12/04/19 16:45 Ordered Medication Orders Albuterol/Ipratropium (Duoneb 3.0-0.5 Mg/3 Ml) 3 ml NEB Q4HRRT PRN PRN Reason: Shortness Of Breath/wheezing Diphenhydramine HCl (Benadryl) 25 mg IM Q4H PRN PRN Reason: Agitation Haloperidol Lactate (Haldol) 5 mg IM Q8H PRN PRN Reason: Agitation Hydromorphone HCl (Dilaudid) 1 mg IVPUSH Q4H PRN PRN Reason: Pain (severe 7-10) Lactated Ringer's (Ringers, Lactated) 1,000 mls @ 125 mls/hr IV ASDIRECTED MICHAEL Pantoprazole Sodium 40 mg/ (Sodium Chloride) 10 mls @ 300 mls/hr IV BID MICHAEL Insulin Aspart (Novolog) 0 unit SUBCUT TIDAC MICHAEL; Protocol Ondansetron HCl (Zofran) 4 mg IVPUSH Q6H PRN PRN Reason: Nausea/Vomiting Assessment/Plan Comment:: 34 y/o M admitted for intractable N/V secondary to gastroparesis Start IV fluid hydration Start Zofran for nausea Start IV Dilaudid for abdominal pain (nothing else has worked for him in the past) Start IM Haldol and Benadryl for agitation Start IV PPI for reported GI bleed, although Hb is stable Dont suspect infection, WBC count likely reactive resume home regimen of insulin SSI for DM resume antihypertensive meds cont to monitor vitals closely Monitor and replete electrolytes as needed
[2019-12-04] MEDS: HYDROmorphone 1 MG/ML Syringe IVPUSH PRN (17:57)
[2019-12-04] MEDS: Ondansetron 4 MG/2 ML SDV IVPUSH PRN (18:04)
[2019-12-04] MEDS: Haloperidol Lactate 5 MG/ML SDV IM PRN (18:06)
[2019-12-04] MEDS: Insulin Aspart 100 Units/ML 3 ML Pen SUBCUT SCH (18:13)
[2019-12-04] MEDS: Lactated Ringers 1,000 ML IV SCH (18:22)
[2019-12-04] MEDS: Pantoprazole 40 MG in Sodium Chloride 0.9% 10 ML IV SCH (22:51)
[2019-12-04] MEDS ORDERED: 50% Dextrose in Water 50 ML Syringe IVPUSH ONE (23:20)
[2019-12-05] MEDS: HYDROmorphone 1 MG/ML Syringe IVPUSH PRN ×3 (04:09→22:02)
[2019-12-05] MEDS: Ondansetron 4 MG/2 ML SDV IVPUSH PRN (04:09)
[2019-12-05 06:14] LABS: CARBON DIOXIDE,CO2 28.5 mmol/L (21.0-32.0); POTASSIUM,K 4.1 mmol/L (3.5-5.1)
--- NOTE | 2019-12-05 09:32 | PCM.PN ---
- General Info Date of Service: 12/05/19 Admission Dx/Problem (Free Text): Admission Diagnosis/Problem Admission Diagnosis/Problem Gastroparesis Subjective Update: Sleeping this morning, denies pain currently. still slightly nauseated, not wanting more to eat yet. No chest pain Functional Status: Reports: Pain Controlled - Review of Systems General: Reports: No Symptoms. Denies: Weakness, Fatigue HEENT: Reports: No Symptoms Pulmonary: Reports: No Symptoms. Denies: Shortness of Breath Cardiovascular: Reports: No Symptoms. Denies: Chest Pain Gastrointestinal: Reports: Abdominal Pain, Nausea. Denies: Vomiting Genitourinary: Reports: No Symptoms. Denies: Dysuria, Frequency, Burning Musculoskeletal: Reports: No Symptoms Skin: Reports: No Symptoms Neurological: Reports: No Symptoms Psychiatric: Reports: No Symptoms - Patient Data Vitals - Most Recent: Last Vital Signs Temp 99.0 F 12/05/19 05:14 Pulse 120 H 12/05/19 05:14 Resp 18 12/05/19 05:14 BP 164/102 H 12/05/19 05:14 Pulse Ox 96 12/05/19 05:14 Weight - Most Recent: 100 kg I&O - Last 24 Hours: Intake & Output 12/04/19 12/05/19 12/05/19 22:59 06:59 14:59 Intake Total 480 Balance 480 Lab Results Last 24 Hours: Laboratory Results - last 24 hr 12/04/19 12/04/19 12/04/19 Range/Units 11:55 11:55 18:11 WBC 11.03 H (4.0-11.0) K/uL RBC 4.76 (4.50-5.90) M/uL Hgb 10.1 L (13.0-17.0) g/dL Hct 32.0 L (38.0-50.0) % MCV 67.2 L (80.0-98.0) fL MCH 21.2 L (27.0-32.0) pg MCHC 31.6 (31.0-37.0) g/dL RDW Std Deviation 38.1 (28.0-62.0) fl RDW Coeff of Dania 16 H (11.0-15.0) % Plt Count 449 H (150-400) K/uL MPV 10.40 (7.40-12.00) fL Neut % (Auto) 80.8 H (48.0-80.0) % Lymph % (Auto) 13.8 L (16.0-40.0) % [place] % (Auto) 4.8 (0.0-15.0) % Eos % (Auto) 0.3 (0.0-7.0) % Baso % (Auto) 0.3 (0.0-1.5) % Neut # (Auto) 8.9 H (1.4-5.7) K/uL Lymph # (Auto) 1.5 (0.6-2.4) K/uL [place] # (Auto) 0.5 (0.0-0.8) K/uL Eos # (Auto) 0.0 (0.0-0.7) K/uL Baso # (Auto) 0.0 (0.0-0.1) K/uL Nucleated RBC % 0.0 /100WBC Nucleated RBCs # 0 K/uL Sodium 138 (136-148) mmol/L Potassium 3.8 (3.5-5.1) mmol/L Chloride 104 (98-107) mmol/L Carbon Dioxide 21.3 (21.0-32.0) mmol/L BUN 22 H (7.0-18.0) mg/dL Creatinine 2.4 H (0.8-1.3) mg/dL Est Cr Clr Drug Dosing 42.35 mL/min Estimated GFR (MDRD) 38.0 ml/min Glucose 368 H (74-106) mg/dL POC Glucose 353 H (60-110) mg/dL Calcium 8.4 L (8.5-10.1) mg/dL Phosphorus (2.6-4.7) mg/dL Magnesium (1.8-2.4) mg/dL Total Bilirubin 0.2 (0.2-1.0) mg/dL AST 33 (15-37) IU/L ALT 21 (14-63) IU/L Alkaline Phosphatase 98 (46-116) U/L Total Protein 6.0 L (6.4-8.2) g/dL Albumin 2.3 L (3.4-5.0) g/dL Globulin 3.7 (2.6-4.0) g/dL Albumin/Globulin Ratio 0.6 L (0.9-1.6) Lipase 36 L (73-393) U/L 12/04/19 12/04/19 12/04/19 Range/Units 23:00 23:21 23:50 WBC (4.0-11.0) K/uL RBC (4.50-5.90) M/uL Hgb (13.0-17.0) g/dL Hct (38.0-50.0) % MCV (80.0-98.0) fL MCH (27.0-32.0) pg MCHC (31.0-37.0) g/dL RDW Std Deviation (28.0-62.0) fl RDW Coeff of Dania (11.0-15.0) % Plt Count (150-400) K/uL MPV (7.40-12.00) fL Neut % (Auto) (48.0-80.0) % Lymph % (Auto) (16.0-40.0) % [place] % (Auto) (0.0-15.0) % Eos % (Auto) (0.0-7.0) % Baso % (Auto) (0.0-1.5) % Neut # (Auto) (1.4-5.7) K/uL Lymph # (Auto) (0.6-2.4) K/uL [place] # (Auto) (0.0-0.8) K/uL Eos # (Auto) (0.0-0.7) K/uL Baso # (Auto) (0.0-0.1) K/uL Nucleated RBC % /100WBC Nucleated RBCs # K/uL Sodium (136-148) mmol/L Potassium (3.5-5.1) mmol/L Chloride (98-107) mmol/L Carbon Dioxide (21.0-32.0) mmol/L BUN (7.0-18.0) mg/dL Creatinine (0.8-1.3) mg/dL Est Cr Clr Drug Dosing mL/min Estimated GFR (MDRD) ml/min Glucose (74-106) mg/dL POC Glucose 44 L 43 L 203 H (60-110) mg/dL Calcium (8.5-10.1) mg/dL Phosphorus (2.6-4.7) mg/dL Magnesium (1.8-2.4) mg/dL Total Bilirubin (0.2-1.0) mg/dL AST (15-37) IU/L ALT (14-63) IU/L Alkaline Phosphatase (46-116) U/L Total Protein (6.4-8.2) g/dL Albumin (3.4-5.0) g/dL Globulin (2.6-4.0) g/dL Albumin/Globulin Ratio (0.9-1.6) Lipase (73-393) U/L 12/05/19 12/05/19 12/05/19 Range/Units 05:30 05:30 06:28 WBC 11.88 H (4.0-11.0) K/uL RBC 4.11 L (4.50-5.90) M/uL Hgb 8.7 L (13.0-17.0) g/dL Hct 28.0 L (38.0-50.0) % MCV 68.1 L (80.0-98.0) fL MCH 21.2 L (27.0-32.0) pg MCHC 31.1 (31.0-37.0) g/dL RDW Std Deviation 39.0 (28.0-62.0) fl RDW Coeff of Dania 16 H (11.0-15.0) % Plt Count 373 (150-400) K/uL MPV 9.50 (7.40-12.00) fL Neut % (Auto) 77.7 (48.0-80.0) % Lymph % (Auto) 14.7 L (16.0-40.0) % [place] % (Auto) 7.3 (0.0-15.0) % Eos % (Auto) 0.1 (0.0-7.0) % Baso % (Auto) 0.2 (0.0-1.5) % Neut # (Auto) 9.2 H (1.4-5.7) K/uL Lymph # (Auto) 1.8 (0.6-2.4) K/uL [place] # (Auto) 0.9 H (0.0-0.8) K/uL Eos # (Auto) 0.0 (0.0-0.7) K/uL Baso # (Auto) 0.0 (0.0-0.1) K/uL Nucleated RBC % 0.0 /100WBC Nucleated RBCs # 0 K/uL Sodium 143 (136-148) mmol/L Potassium 4.1 (3.5-5.1) mmol/L Chloride 110 H (98-107) mmol/L Carbon Dioxide 28.5 (21.0-32.0) mmol/L BUN 22 H (7.0-18.0) mg/dL Creatinine 2.5 H (0.8-1.3) mg/dL Est Cr Clr Drug Dosing 40.66 mL/min Estimated GFR (MDRD) 36.2 ml/min Glucose 209 H (74-106) mg/dL POC Glucose 178 H (60-110) mg/dL Calcium 8.0 L (8.5-10.1) mg/dL Phosphorus 4.1 (2.6-4.7) mg/dL Magnesium 1.9 (1.8-2.4) mg/dL Total Bilirubin (0.2-1.0) mg/dL AST (15-37) IU/L ALT (14-63) IU/L Alkaline Phosphatase (46-116) U/L Total Protein (6.4-8.2) g/dL Albumin (3.4-5.0) g/dL Globulin (2.6-4.0) g/dL Albumin/Globulin Ratio (0.9-1.6) Lipase (73-393) U/L Med Orders - Current: Current Medications Albuterol/Ipratropium (Duoneb 3.0-0.5 Mg/3 Ml) 3 ml NEB Q4HRRT PRN PRN Reason: Shortness Of Breath/wheezing Diphenhydramine HCl (Benadryl) 25 mg IM Q4H PRN PRN Reason: Agitation Last Admin: 12/04/19 18:19 Dose: 25 mg Haloperidol Lactate (Haldol) 5 mg IM Q8H PRN PRN Reason: Agitation Last Admin: 12/04/19 18:06 Dose: 5 mg Hydromorphone HCl (Dilaudid) 1 mg IVPUSH Q4H PRN PRN Reason: Pain (severe 7-10) Last Admin: 12/05/19 04:09 Dose: 1 mg Lactated Ringer's (Ringers, Lactated) 1,000 mls @ 125 mls/hr IV ASDIRECTED [facility] Last Admin: 12/04/19 18:22 Dose: 125 mls/hr Pantoprazole Sodium 40 mg/ (Sodium Chloride) 10 mls @ 300 mls/hr IV BID [facility] Last Admin: 12/04/19 22:51 Dose: 300 mls/hr Insulin Aspart (Novolog) 0 unit SUBCUT TIDAC [facility]; Protocol Last Admin: 12/04/19 18:13 Dose: 15 units Labetalol HCl (Normodyne) 10 mg IVPUSH Q4H PRN; Protocol PRN Reason: Hypertension Ondansetron HCl (Zofran) 4 mg IVPUSH Q6H PRN PRN Reason: Nausea/Vomiting Last Admin: 12/05/19 04:09 Dose: 4 mg Discontinued Medications Dextrose/Water (Dextrose 50% In Water) 50 ml IVPUSH ONETIME ONE Stop: 12/04/19 23:21 Last Admin: 12/04/19 23:36 Dose: 50 ml Haloperidol Decanoate (Haldol Decanoate) 5 mg IM ONETIME ONE Stop: 12/04/19 11:18 Last Admin: 12/04/19 11:54 Dose: Not Given Haloperidol Lactate (Haldol) 5 mg IM ONETIME ONE Stop: 12/04/19 11:31 Last Admin: 12/04/19 11:53 Dose: 5 mg Haloperidol Lactate (Haldol) 5 mg IM ONETIME ONE Stop: 12/04/19 16:49 Last Admin: 12/04/19 17:03 Dose: 5 mg Haloperidol Lactate (Haldol) 5 mg IM ONETIME ONE Stop: 12/04/19 16:52 Last Admin: 12/04/19 17:03 Dose: Not Given Sodium Chloride (Normal Saline) 1,000 mls @ 999 mls/hr IV .BOLUS ONE Stop: 12/04/19 12:18 Last Admin: 12/04/19 11:54 Dose: 999 mls/hr Promethazine HCl (Phenergan) 25 mg IM ONETIME ONE Stop: 12/04/19 15:35 Last Admin: 12/04/19 15:54 Dose: 25 mg - Exam General: Alert, Oriented, Cooperative, No Acute Distress Lungs: Clear to Auscultation, Normal Respiratory Effort Cardiovascular: Regular Rate, Regular Rhythm GI/Abdominal Exam: Normal Bowel Sounds, Soft, Non-Tender Extremities: Normal Inspection, Normal Range of Motion, Non-Tender, No Pedal Edema Wound/Incisions: Healing Well Neurological: No New Focal Deficit Psy/Mental Status: Alert, Normal Affect, Normal Mood Sepsis Event Note - Evaluation Sepsis Screening Result: No Definite Risk - Focused Exam Vital Signs: Vital Signs Temp Pulse Resp BP Pulse Ox 12/05/19 05:14 99.0 F 120 H 18 164/102 H 96 12/04/19 22:00 97.4 F 95 18 158/89 H 97 Date Exam was Performed: 12/05/19 Time Exam was Performed: 13:47 - Problem List & Annotations (1) Gastroparesis SNOMED Code(s): 090313000 Code(s): K31.84 - GASTROPARESIS Status: Acute Priority: High Current Visit: Yes (2) Vomiting SNOMED Code(s): 113198359 Code(s): R11.10 - VOMITING, UNSPECIFIED Status: Acute Current Visit: Yes (3) OTILIA (acute kidney injury) SNOMED Code(s): 91366562, 81360414 Code(s): N17.9 - ACUTE KIDNEY FAILURE, UNSPECIFIED Status: Acute Current Visit: No - Problem List Review Problem List Initiated/Reviewed/Updated: Yes - Plan Plan:: 34 y/o M admitted for intractable N/V secondary to gastroparesis 1. Gastroparesis Continue IV fluid hydration Continue Zofran for nausea Continue IV Dilaudid for abdominal pain (nothing else has worked for him in the past) Continue Haldol and Benadryl for agitation Continue PPI for reported GI bleed, although Hb is stable Dont suspect infection, WBC count likely reactive 2. HTN/CKD/DM Type 1- non complaint, has not picked up majority of medications in many months. resume home regimen of insulin-holding Lantus as patient frequently hypoglycemic during his stays. SSI for DM resume antihypertensive meds cont to monitor vitals closely Monitor and replete electrolytes as needed Dispo: Likely home in am
[2019-12-05] MEDS: Lactated Ringers 1,000 ML IV SCH ×2 (09:53→18:42)
[2019-12-05] MEDS: Insulin Aspart 100 Units/ML 3 ML Pen SUBCUT SCH ×3 (10:39→16:24)
[2019-12-05] MEDS: Pantoprazole 40 MG in Sodium Chloride 0.9% 10 ML IV SCH ×2 (10:40→21:01)
[2019-12-05] MEDS: Metoprolol Succinate 100 MG Tab.ER PO SCH (12:57)
[2019-12-05] MEDS: Torsemide 20 MG Tab PO SCH (12:58)
[2019-12-05] MEDS: Labetalol 100 MG/20 ML MDV IVPUSH PRN ×2 (16:57→22:03)
[2019-12-06] MEDS: Labetalol 100 MG/20 ML MDV IVPUSH PRN ×3 (00:12→22:02)
[2019-12-06] MEDS: HYDROmorphone 1 MG/ML Syringe IVPUSH PRN ×3 (04:00→21:51)
[2019-12-06] MEDS ORDERED: Lactated Ringers 500 ML IV SCH (07:00)
[2019-12-06] MEDS: Insulin Aspart 100 Units/ML 3 ML Pen SUBCUT SCH ×3 (07:02→18:04)
[2019-12-06] MEDS ORDERED: Insulin Glargine,Human Rec. Analog 100 Units/ML 3 ML Pen SUBCUT ONE (07:55)
[2019-12-06] MEDS: Metoprolol Succinate 100 MG Tab.ER PO SCH (08:27)
[2019-12-06] MEDS: hydrALAZINE 25 MG Tab PO SCH ×3 (08:28→23:42)
[2019-12-06] MEDS: Pantoprazole 40 MG in Sodium Chloride 0.9% 10 ML IV SCH ×2 (08:28→21:51)
[2019-12-06] MEDS: Torsemide 20 MG Tab PO SCH (08:28)
[2019-12-06 08:33] LABS: CARBON DIOXIDE,CO2 24.2 mmol/L (21.0-32.0); POTASSIUM,K 4.1 mmol/L (3.5-5.1)
[2019-12-06] MEDS ORDERED: Insulin Aspart 100 Units/ML 3 ML Pen SUBCUT ONE ×2 (09:01→09:20)
--- NOTE | 2019-12-06 14:22 | PCM.PN ---
- General Info Date of Service: 12/06/19 Admission Dx/Problem (Free Text): Admission Diagnosis/Problem Admission Diagnosis/Problem Gastroparesis Subjective Update: Feeling ok this morning, wanting to try some food. Small amount of nausea noted. No chest pain or SOB. No vomiting or black stools. Functional Status: Reports: Pain Controlled, Tolerating Diet, Ambulating, Urinating - Review of Systems General: Reports: No Symptoms. Denies: Weakness, Fatigue, Malaise HEENT: Reports: No Symptoms. Denies: Headaches, Rhinitis, Visual Changes Pulmonary: Reports: No Symptoms. Denies: Shortness of Breath Cardiovascular: Reports: No Symptoms. Denies: Chest Pain Gastrointestinal: Reports: Nausea. Denies: Abdominal Pain, Decreased Appetite, Vomiting Genitourinary: Reports: No Symptoms Musculoskeletal: Reports: No Symptoms Skin: Reports: No Symptoms Neurological: Reports: No Symptoms Psychiatric: Reports: No Symptoms - Patient Data Vitals - Most Recent: Last Vital Signs Temp 98.8 F 12/06/19 11:00 Pulse 88 12/06/19 11:00 Resp 16 12/06/19 11:00 BP 174/94 H 12/06/19 11:00 Pulse Ox 92 L 12/06/19 11:00 Weight - Most Recent: 100 kg I&O - Last 24 Hours: Intake & Output 12/05/19 12/06/19 12/06/19 22:59 06:59 14:59 Intake Total 1210 Balance 1210 Lab Results Last 24 Hours: Laboratory Results - last 24 hr 12/05/19 12/05/19 12/05/19 Range/Units 16:18 17:35 17:35 WBC (4.0-11.0) K/uL RBC (4.50-5.90) M/uL Hgb (13.0-17.0) g/dL Hct (38.0-50.0) % MCV (80.0-98.0) fL MCH (27.0-32.0) pg MCHC (31.0-37.0) g/dL RDW Std Deviation (28.0-62.0) fl RDW Coeff of Dania (11.0-15.0) % Plt Count (150-400) K/uL MPV (7.40-12.00) fL Neut % (Auto) (48.0-80.0) % Lymph % (Auto) (16.0-40.0) % [place] % (Auto) (0.0-15.0) % Eos % (Auto) (0.0-7.0) % Baso % (Auto) (0.0-1.5) % Neut # (Auto) (1.4-5.7) K/uL Lymph # (Auto) (0.6-2.4) K/uL [place] # (Auto) (0.0-0.8) K/uL Eos # (Auto) (0.0-0.7) K/uL Baso # (Auto) (0.0-0.1) K/uL Nucleated RBC % /100WBC Nucleated RBCs # K/uL Sodium (136-148) mmol/L Potassium (3.5-5.1) mmol/L Chloride (98-107) mmol/L Carbon Dioxide (21.0-32.0) mmol/L BUN (7.0-18.0) mg/dL Creatinine (0.8-1.3) mg/dL Est Cr Clr Drug Dosing mL/min Estimated GFR (MDRD) ml/min Glucose (74-106) mg/dL POC Glucose 343 H (60-110) mg/dL Calcium (8.5-10.1) mg/dL Urine Color YELLOW Urine Appearance CLEAR Urine pH 6.5 (5.0-8.0) Ur Specific [place] 1.025 (1.001-1.035) Urine Protein >=300 H (NEGATIVE) mg/dL Urine Glucose (UA) >=1000 (NEGATIVE) mg/dL Urine Ketones NEGATIVE (NEGATIVE) mg/dL Urine Occult Blood SMALL H (NEGATIVE) Urine Nitrite NEGATIVE (NEGATIVE) Urine Bilirubin NEGATIVE (NEGATIVE) Urine Urobilinogen 0.2 (<2.0) EU/dL Ur Leukocyte Esterase NEGATIVE (NEGATIVE) Urine RBC 0-4 (0-2/HPF) Urine WBC 0-3 (0-5/HPF) Ur Epithelial Cells RARE (NONE-FEW) Urine Bacteria RARE (NEGATIVE) Urine Opiates Screen NEGATIVE (NEGATIVE) Ur Oxycodone Screen NEGATIVE (NEGATIVE) Urine Methadone Screen NEGATIVE (NEGATIVE) Ur Barbiturates Screen NEGATIVE (NEGATIVE) Ur Phencyclidine Scrn NEGATIVE (NEGATIVE) Ur Amphetamine Screen NEGATIVE (NEGATIVE) U Methamphetamines Scrn NEGATIVE (NEGATIVE) U Benzodiazepines Scrn NEGATIVE (NEGATIVE) U Cocaine Metab Screen NEGATIVE (NEGATIVE) U Marijuana (THC) Screen POSITIVE (NEGATIVE) 12/05/19 12/06/19 12/06/19 Range/Units 22:13 06:42 07:28 WBC (4.0-11.0) K/uL RBC (4.50-5.90) M/uL Hgb (13.0-17.0) g/dL Hct (38.0-50.0) % MCV (80.0-98.0) fL MCH (27.0-32.0) pg MCHC (31.0-37.0) g/dL RDW Std Deviation (28.0-62.0) fl RDW Coeff of Dania (11.0-15.0) % Plt Count (150-400) K/uL MPV (7.40-12.00) fL Neut % (Auto) (48.0-80.0) % Lymph % (Auto) (16.0-40.0) % [place] % (Auto) (0.0-15.0) % Eos % (Auto) (0.0-7.0) % Baso % (Auto) (0.0-1.5) % Neut # (Auto) (1.4-5.7) K/uL Lymph # (Auto) (0.6-2.4) K/uL [place] # (Auto) (0.0-0.8) K/uL Eos # (Auto) (0.0-0.7) K/uL Baso # (Auto) (0.0-0.1) K/uL Nucleated RBC % /100WBC Nucleated RBCs # K/uL Sodium (136-148) mmol/L Potassium (3.5-5.1) mmol/L Chloride (98-107) mmol/L Carbon Dioxide (21.0-32.0) mmol/L BUN (7.0-18.0) mg/dL Creatinine (0.8-1.3) mg/dL Est Cr Clr Drug Dosing mL/min Estimated GFR (MDRD) ml/min Glucose (74-106) mg/dL POC Glucose 279 H 495 H 458 H (60-110) mg/dL Calcium (8.5-10.1) mg/dL Urine Color Urine Appearance Urine pH (5.0-8.0) Ur Specific [place] (1.001-1.035) Urine Protein (NEGATIVE) mg/dL Urine Glucose (UA) (NEGATIVE) mg/dL Urine Ketones (NEGATIVE) mg/dL Urine Occult Blood (NEGATIVE) Urine Nitrite (NEGATIVE) Urine Bilirubin (NEGATIVE) Urine Urobilinogen (<2.0) EU/dL Ur Leukocyte Esterase (NEGATIVE) Urine RBC (0-2/HPF) Urine WBC (0-5/HPF) Ur Epithelial Cells (NONE-FEW) Urine Bacteria (NEGATIVE) Urine Opiates Screen (NEGATIVE) Ur Oxycodone Screen (NEGATIVE) Urine Methadone Screen (NEGATIVE) Ur Barbiturates Screen (NEGATIVE) Ur Phencyclidine Scrn (NEGATIVE) Ur Amphetamine Screen (NEGATIVE) U Methamphetamines Scrn (NEGATIVE) U Benzodiazepines Scrn (NEGATIVE) U Cocaine Metab Screen (NEGATIVE) U Marijuana (THC) Screen (NEGATIVE) 12/06/19 12/06/19 12/06/19 Range/Units 08:10 08:10 09:11 WBC 8.24 (4.0-11.0) K/uL RBC 4.31 L (4.50-5.90) M/uL Hgb 9.1 L (13.0-17.0) g/dL Hct 29.8 L (38.0-50.0) % MCV 69.1 L (80.0-98.0) fL MCH 21.1 L (27.0-32.0) pg MCHC 30.5 L (31.0-37.0) g/dL RDW Std Deviation 40.1 (28.0-62.0) fl RDW Coeff of Dania 16 H (11.0-15.0) % Plt Count 336 (150-400) K/uL MPV 9.80 (7.40-12.00) fL Neut % (Auto) 70.5 (48.0-80.0) % Lymph % (Auto) 22.9 (16.0-40.0) % [place] % (Auto) 5.1 (0.0-15.0) % Eos % (Auto) 1.1 (0.0-7.0) % Baso % (Auto) 0.4 (0.0-1.5) % Neut # (Auto) 5.8 H (1.4-5.7) K/uL Lymph # (Auto) 1.9 (0.6-2.4) K/uL [place] # (Auto) 0.4 (0.0-0.8) K/uL Eos # (Auto) 0.1 (0.0-0.7) K/uL Baso # (Auto) 0.0 (0.0-0.1) K/uL Nucleated RBC % 0.0 /100WBC Nucleated RBCs # 0 K/uL Sodium 135 L (136-148) mmol/L Potassium 4.1 (3.5-5.1) mmol/L Chloride 101 (98-107) mmol/L Carbon Dioxide 24.2 (21.0-32.0) mmol/L BUN 25 H (7.0-18.0) mg/dL Creatinine 2.8 H (0.8-1.3) mg/dL Est Cr Clr Drug Dosing 36.30 mL/min Estimated GFR (MDRD) 31.8 ml/min Glucose 416 H (74-106) mg/dL POC Glucose 330 H (60-110) mg/dL Calcium 7.9 L (8.5-10.1) mg/dL Urine Color Urine Appearance Urine pH (5.0-8.0) Ur Specific [place] (1.001-1.035) Urine Protein (NEGATIVE) mg/dL Urine Glucose (UA) (NEGATIVE) mg/dL Urine Ketones (NEGATIVE) mg/dL Urine Occult Blood (NEGATIVE) Urine Nitrite (NEGATIVE) Urine Bilirubin (NEGATIVE) Urine Urobilinogen (<2.0) EU/dL Ur Leukocyte Esterase (NEGATIVE) Urine RBC (0-2/HPF) Urine WBC (0-5/HPF) Ur Epithelial Cells (NONE-FEW) Urine Bacteria (NEGATIVE) Urine Opiates Screen (NEGATIVE) Ur Oxycodone Screen (NEGATIVE) Urine Methadone Screen (NEGATIVE) Ur Barbiturates Screen (NEGATIVE) Ur Phencyclidine Scrn (NEGATIVE) Ur Amphetamine Screen (NEGATIVE) U Methamphetamines Scrn (NEGATIVE) U Benzodiazepines Scrn (NEGATIVE) U Cocaine Metab Screen (NEGATIVE) U Marijuana (THC) Screen (NEGATIVE) 12/06/19 12/06/19 Range/Units 10:06 11:26 WBC (4.0-11.0) K/uL RBC (4.50-5.90) M/uL Hgb (13.0-17.0) g/dL Hct (38.0-50.0) % MCV (80.0-98.0) fL MCH (27.0-32.0) pg MCHC (31.0-37.0) g/dL RDW Std Deviation (28.0-62.0) fl RDW Coeff of Dania (11.0-15.0) % Plt Count (150-400) K/uL MPV (7.40-12.00) fL Neut % (Auto) (48.0-80.0) % Lymph % (Auto) (16.0-40.0) % [place] % (Auto) (0.0-15.0) % Eos % (Auto) (0.0-7.0) % Baso % (Auto) (0.0-1.5) % Neut # (Auto) (1.4-5.7) K/uL Lymph # (Auto) (0.6-2.4) K/uL [place] # (Auto) (0.0-0.8) K/uL Eos # (Auto) (0.0-0.7) K/uL Baso # (Auto) (0.0-0.1) K/uL Nucleated RBC % /100WBC Nucleated RBCs # K/uL Sodium (136-148) mmol/L Potassium (3.5-5.1) mmol/L Chloride (98-107) mmol/L Carbon Dioxide (21.0-32.0) mmol/L BUN (7.0-18.0) mg/dL Creatinine (0.8-1.3) mg/dL Est Cr Clr Drug Dosing mL/min Estimated GFR (MDRD) ml/min Glucose (74-106) mg/dL POC Glucose 299 H 253 H (60-110) mg/dL Calcium (8.5-10.1) mg/dL Urine Color Urine Appearance Urine pH (5.0-8.0) Ur Specific [place] (1.001-1.035) Urine Protein (NEGATIVE) mg/dL Urine Glucose (UA) (NEGATIVE) mg/dL Urine Ketones (NEGATIVE) mg/dL Urine Occult Blood (NEGATIVE) Urine Nitrite (NEGATIVE) Urine Bilirubin (NEGATIVE) Urine Urobilinogen (<2.0) EU/dL Ur Leukocyte Esterase (NEGATIVE) Urine RBC (0-2/HPF) Urine WBC (0-5/HPF) Ur Epithelial Cells (NONE-FEW) Urine Bacteria (NEGATIVE) Urine Opiates Screen (NEGATIVE) Ur Oxycodone Screen (NEGATIVE) Urine Methadone Screen (NEGATIVE) Ur Barbiturates Screen (NEGATIVE) Ur Phencyclidine Scrn (NEGATIVE) Ur Amphetamine Screen (NEGATIVE) U Methamphetamines Scrn (NEGATIVE) U Benzodiazepines Scrn (NEGATIVE) U Cocaine Metab Screen (NEGATIVE) U Marijuana (THC) Screen (NEGATIVE) Med Orders - Current: Current Medications Albuterol/Ipratropium (Duoneb 3.0-0.5 Mg/3 Ml) 3 ml NEB Q4HRRT PRN PRN Reason: Shortness Of Breath/wheezing Diphenhydramine HCl (Benadryl) 25 mg IM Q4H PRN PRN Reason: Agitation Last Admin: 12/04/19 18:19 Dose: 25 mg Haloperidol Lactate (Haldol) 5 mg IM Q8H PRN PRN Reason: Agitation Last Admin: 12/04/19 18:06 Dose: 5 mg Hydralazine HCl (Apresoline) 25 mg PO Q8H MICHAEL Last Admin: 12/06/19 08:28 Dose: 25 mg Hydromorphone HCl (Dilaudid) 1 mg IVPUSH Q4H PRN PRN Reason: Pain (severe 7-10) Last Admin: 12/06/19 09:36 Dose: 1 mg Lactated Ringer's (Ringers, Lactated) 1,000 mls @ 125 mls/hr IV ASDIRECTED MICHAEL Last Admin: 12/05/19 18:42 Dose: 125 mls/hr Pantoprazole Sodium 40 mg/ (Sodium Chloride) 10 mls @ 300 mls/hr IV BID MICHAEL Last Admin: 12/06/19 08:28 Dose: 300 mls/hr Lactated Ringer's (Ringers, Lactated) 500 mls @ 999 mls/hr IV STAT MICHAEL Insulin Aspart (Novolog) 0 unit SUBCUT TIDAC [facility]; Protocol Last Admin: 12/06/19 11:39 Dose: 3 units Labetalol HCl (Normodyne) 10 mg IVPUSH Q4H PRN; Protocol PRN Reason: Hypertension Last Admin: 12/06/19 07:06 Dose: 10 mg Metoprolol Succinate (Toprol Xl) 200 mg PO DAILY [facility] Last Admin: 12/06/19 08:27 Dose: 200 mg Ondansetron HCl (Zofran) 4 mg IVPUSH Q6H PRN PRN Reason: Nausea/Vomiting Last Admin: 12/05/19 04:09 Dose: 4 mg Torsemide (Demadex) 20 mg PO DAILY [facility] Last Admin: 12/06/19 08:28 Dose: 20 mg Discontinued Medications Dextrose/Water (Dextrose 50% In Water) 50 ml IVPUSH ONETIME ONE Stop: 12/04/19 23:21 Last Admin: 12/04/19 23:36 Dose: 50 ml Haloperidol Decanoate (Haldol Decanoate) 5 mg IM ONETIME ONE Stop: 12/04/19 11:18 Last Admin: 12/04/19 11:54 Dose: Not Given Haloperidol Lactate (Haldol) 5 mg IM ONETIME ONE Stop: 12/04/19 11:31 Last Admin: 12/04/19 11:53 Dose: 5 mg Haloperidol Lactate (Haldol) 5 mg IM ONETIME ONE Stop: 12/04/19 16:49 Last Admin: 12/04/19 17:03 Dose: 5 mg Haloperidol Lactate (Haldol) 5 mg IM ONETIME ONE Stop: 12/04/19 16:52 Last Admin: 12/04/19 17:03 Dose: Not Given Sodium Chloride (Normal Saline) 1,000 mls @ 999 mls/hr IV .BOLUS ONE Stop: 12/04/19 12:18 Last Admin: 12/04/19 11:54 Dose: 999 mls/hr Insulin Aspart (Novolog) 14 unit SUBCUT ONETIME ONE Stop: 12/06/19 09:02 Insulin Aspart (Novolog) 12 unit SUBCUT ONETIME ONE Stop: 12/06/19 09:21 Last Admin: 12/06/19 09:33 Dose: 12 units Insulin Glargine (Lantus Solostar) 10 units SUBCUT ONETIME ONE Stop: 12/06/19 07:56 Last Admin: 12/06/19 08:25 Dose: 10 units Promethazine HCl (Phenergan) 25 mg IM ONETIME ONE Stop: 12/04/19 15:35 Last Admin: 12/04/19 15:54 Dose: 25 mg - Exam General: Alert, Oriented, Cooperative, No Acute Distress Lungs: Clear to Auscultation, Normal Respiratory Effort Cardiovascular: Regular Rate, Regular Rhythm GI/Abdominal Exam: Normal Bowel Sounds, Soft, Non-Tender Extremities: Normal Inspection, Normal Range of Motion, Non-Tender Neurological: No New Focal Deficit Psy/Mental Status: Alert, Normal Affect, Normal Mood Sepsis Event Note - Evaluation Sepsis Screening Result: No Definite Risk - Focused Exam Vital Signs: Vital Signs Temp Pulse Pulse Resp BP BP Pulse Ox 12/06/19 11:00 98.8 F 88 16 174/94 H 92 L 12/06/19 08:28 190/120 H 12/06/19 08:27 81 190/120 H 12/06/19 07:54 190/120 H 12/06/19 07:28 208/122 H 12/06/19 05:10 98.0 F 92 18 177/89 H 96 Date Exam was Performed: 12/06/19 Time Exam was Performed: 14:18 - Problem List & Annotations (1) Gastroparesis SNOMED Code(s): 926328685 Code(s): K31.84 - GASTROPARESIS Status: Acute Priority: High Current Visit: Yes (2) Vomiting SNOMED Code(s): 653291830 Code(s): R11.10 - VOMITING, UNSPECIFIED Status: Acute Current Visit: Yes (3) OTILIA (acute kidney injury) SNOMED Code(s): 16070346, 86557259 Code(s): N17.9 - ACUTE KIDNEY FAILURE, UNSPECIFIED Status: Acute Current Visit: No - Problem List Review Problem List Initiated/Reviewed/Updated: Yes - My Orders Last 24 Hours: My Active Orders 12/06/19 08:00 hydrALAZINE [Apresoline] 25 mg PO Q8H 12/06/19 Breakfast ADA Diabetic [[place] [employer] Diet] [DIET] 12/06/19 Lunch Advance Diet Instructions [DIET] - Plan Plan:: 34 y/o M admitted for intractable N/V secondary to gastroparesis 1. Gastroparesis - Improved - IV fluid hydration - Zofran for nausea - IV Dilaudid for abdominal pain PRN - PPI for reported GI bleed, although Hb is stable 2. HTN/CKD/DM Type 1- non complaint, has not picked up majority of medications in many months. - Increase Novolog to High dose as he is starting to eat ADA diet now. Given Lantus this morning, 10 units. -resume antihypertensive meds, patient has not been complaint as per history many medications sent to pharmacy have not been picked up in many months. -cont to monitor vitals closely Dispo: Likely home in am
[2019-12-06] MEDS ORDERED: Metoclopramide 10 MG/2 ML SDV IVPUSH SCH (15:15)
[2019-12-06] MEDS: Haloperidol Lactate 5 MG/ML SDV IM PRN (15:49)
[2019-12-07] MEDS: Labetalol 100 MG/20 ML MDV IVPUSH PRN (03:20)
[2019-12-07] MEDS ORDERED: Labetalol 100 MG/20 ML MDV IVPUSH ONE ×2 (04:17→14:19)
[2019-12-07] MEDS: HYDROmorphone 1 MG/ML Syringe IVPUSH PRN ×4 (04:31→21:41)
[2019-12-07 06:08] LABS: CARBON DIOXIDE,CO2 26.4 mmol/L (21.0-32.0); POTASSIUM,K 3.4 mmol/L (3.5-5.1)
[2019-12-07] MEDS: hydrALAZINE 25 MG Tab PO SCH ×3 (07:41→23:56)
[2019-12-07] MEDS: Metoprolol Succinate 100 MG Tab.ER PO SCH (08:16)
[2019-12-07] MEDS: Torsemide 20 MG Tab PO SCH (08:19)
[2019-12-07] MEDS: Pantoprazole 40 MG in Sodium Chloride 0.9% 10 ML IV SCH ×2 (08:19→20:33)
[2019-12-07] MEDS: Insulin Aspart 100 Units/ML 3 ML Pen SUBCUT SCH ×3 (08:58→16:54)
[2019-12-07] MEDS ORDERED: hydrALAZINE 25 MG Tab PO ONE (11:39)
--- NOTE | 2019-12-07 16:08 | PCM.PN ---
- General Info Date of Service: 12/07/19 Admission Dx/Problem (Free Text): Admission Diagnosis/Problem Admission Diagnosis/Problem Gastroparesis Subjective Update: Has intermittent nausea and abdominal pain. No chest pain or headache. Functional Status: Reports: Pain Controlled - Review of Systems HEENT: Reports: No Symptoms. Denies: Headaches Pulmonary: Reports: No Symptoms. Denies: Shortness of Breath Cardiovascular: Reports: No Symptoms. Denies: Chest Pain Gastrointestinal: Reports: Abdominal Pain, Nausea. Denies: Vomiting Genitourinary: Reports: No Symptoms Neurological: Reports: No Symptoms Psychiatric: Reports: No Symptoms - Patient Data Vitals - Most Recent: Last Vital Signs Temp 98.6 F 12/07/19 11:00 Pulse 88 12/07/19 11:00 Resp 18 12/07/19 11:00 BP 181/98 H 12/07/19 15:54 Pulse Ox 95 12/07/19 11:00 Weight - Most Recent: 100 kg I&O - Last 24 Hours: Intake & Output 12/07/19 12/07/19 12/07/19 06:59 14:59 22:59 Intake Total 400 Output Total 1300 Balance -900 Lab Results Last 24 Hours: Laboratory Results - last 24 hr 12/06/19 12/06/19 12/07/19 Range/Units 17:12 22:05 05:30 WBC 6.73 (4.0-11.0) K/uL RBC 4.11 L (4.50-5.90) M/uL Hgb 9.0 L (13.0-17.0) g/dL Hct 27.7 L (38.0-50.0) % MCV 67.4 L (80.0-98.0) fL MCH 21.9 L (27.0-32.0) pg MCHC 32.5 (31.0-37.0) g/dL RDW Std Deviation 38.3 (28.0-62.0) fl RDW Coeff of Dania 16 H (11.0-15.0) % Plt Count 316 (150-400) K/uL MPV 9.40 (7.40-12.00) fL Neut % (Auto) 61.8 (48.0-80.0) % Lymph % (Auto) 25.6 (16.0-40.0) % [place] % (Auto) 7.4 (0.0-15.0) % Eos % (Auto) 4.5 (0.0-7.0) % Baso % (Auto) 0.7 (0.0-1.5) % Neut # (Auto) 4.2 (1.4-5.7) K/uL Lymph # (Auto) 1.7 (0.6-2.4) K/uL [place] # (Auto) 0.5 (0.0-0.8) K/uL Eos # (Auto) 0.3 (0.0-0.7) K/uL Baso # (Auto) 0.1 (0.0-0.1) K/uL Nucleated RBC % 0.0 /100WBC Nucleated RBCs # 0 K/uL Sodium (136-148) mmol/L Potassium (3.5-5.1) mmol/L Chloride (98-107) mmol/L Carbon Dioxide (21.0-32.0) mmol/L BUN (7.0-18.0) mg/dL Creatinine (0.8-1.3) mg/dL Est Cr Clr Drug Dosing mL/min Estimated GFR (MDRD) ml/min Glucose (74-106) mg/dL POC Glucose 88 96 (60-110) mg/dL Calcium (8.5-10.1) mg/dL 12/07/19 12/07/19 12/07/19 Range/Units 05:30 06:53 09:02 WBC (4.0-11.0) K/uL RBC (4.50-5.90) M/uL Hgb (13.0-17.0) g/dL Hct (38.0-50.0) % MCV (80.0-98.0) fL MCH (27.0-32.0) pg MCHC (31.0-37.0) g/dL RDW Std Deviation (28.0-62.0) fl RDW Coeff of Dania (11.0-15.0) % Plt Count (150-400) K/uL MPV (7.40-12.00) fL Neut % (Auto) (48.0-80.0) % Lymph % (Auto) (16.0-40.0) % [place] % (Auto) (0.0-15.0) % Eos % (Auto) (0.0-7.0) % Baso % (Auto) (0.0-1.5) % Neut # (Auto) (1.4-5.7) K/uL Lymph # (Auto) (0.6-2.4) K/uL [place] # (Auto) (0.0-0.8) K/uL Eos # (Auto) (0.0-0.7) K/uL Baso # (Auto) (0.0-0.1) K/uL Nucleated RBC % /100WBC Nucleated RBCs # K/uL Sodium 139 (136-148) mmol/L Potassium 3.4 L (3.5-5.1) mmol/L Chloride 104 (98-107) mmol/L Carbon Dioxide 26.4 (21.0-32.0) mmol/L BUN 19 H (7.0-18.0) mg/dL Creatinine 2.3 H (0.8-1.3) mg/dL Est Cr Clr Drug Dosing 44.20 mL/min Estimated GFR (MDRD) 39.9 ml/min Glucose 163 H (74-106) mg/dL POC Glucose 183 H 182 H (60-110) mg/dL Calcium 7.9 L (8.5-10.1) mg/dL 12/07/19 12/07/19 Range/Units 11:33 15:49 WBC (4.0-11.0) K/uL RBC (4.50-5.90) M/uL Hgb (13.0-17.0) g/dL Hct (38.0-50.0) % MCV (80.0-98.0) fL MCH (27.0-32.0) pg MCHC (31.0-37.0) g/dL RDW Std Deviation (28.0-62.0) fl RDW Coeff of Dania (11.0-15.0) % Plt Count (150-400) K/uL MPV (7.40-12.00) fL Neut % (Auto) (48.0-80.0) % Lymph % (Auto) (16.0-40.0) % [place] % (Auto) (0.0-15.0) % Eos % (Auto) (0.0-7.0) % Baso % (Auto) (0.0-1.5) % Neut # (Auto) (1.4-5.7) K/uL Lymph # (Auto) (0.6-2.4) K/uL [place] # (Auto) (0.0-0.8) K/uL Eos # (Auto) (0.0-0.7) K/uL Baso # (Auto) (0.0-0.1) K/uL Nucleated RBC % /100WBC Nucleated RBCs # K/uL Sodium (136-148) mmol/L Potassium (3.5-5.1) mmol/L Chloride (98-107) mmol/L Carbon Dioxide (21.0-32.0) mmol/L BUN (7.0-18.0) mg/dL Creatinine (0.8-1.3) mg/dL Est Cr Clr Drug Dosing mL/min Estimated GFR (MDRD) ml/min Glucose (74-106) mg/dL POC Glucose 124 H 216 H (60-110) mg/dL Calcium (8.5-10.1) mg/dL Med Orders - Current: Current Medications Albuterol/Ipratropium (Duoneb 3.0-0.5 Mg/3 Ml) 3 ml NEB Q4HRRT PRN PRN Reason: Shortness Of Breath/wheezing Diphenhydramine HCl (Benadryl) 25 mg IM Q4H PRN PRN Reason: Agitation Last Admin: 12/04/19 18:19 Dose: 25 mg Haloperidol Lactate (Haldol) 5 mg IM Q8H PRN PRN Reason: Agitation Last Admin: 12/06/19 15:49 Dose: 5 mg Hydralazine HCl (Apresoline) 50 mg PO Q8H MICHAEL Last Admin: 12/07/19 15:54 Dose: 50 mg Hydromorphone HCl (Dilaudid) 1 mg IVPUSH Q4H PRN PRN Reason: Pain (severe 7-10) Last Admin: 12/07/19 10:01 Dose: 1 mg Pantoprazole Sodium 40 mg/ (Sodium Chloride) 10 mls @ 300 mls/hr IV BID [facility] Last Admin: 12/07/19 08:19 Dose: 300 mls/hr Insulin Aspart (Novolog) 0 unit SUBCUT TIDAC [facility]; Protocol Last Admin: 12/07/19 12:09 Dose: Not Given Labetalol HCl (Normodyne) 10 mg IVPUSH Q4H PRN; Protocol PRN Reason: Hypertension Last Admin: 12/07/19 03:20 Dose: 10 mg Metoprolol Succinate (Toprol Xl) 200 mg PO DAILY [facility] Last Admin: 12/07/19 08:16 Dose: 200 mg Ondansetron HCl (Zofran) 4 mg IVPUSH Q6H PRN PRN Reason: Nausea/Vomiting Last Admin: 12/05/19 04:09 Dose: 4 mg Torsemide (Demadex) 20 mg PO DAILY [facility] Last Admin: 12/07/19 08:19 Dose: 20 mg Discontinued Medications Dextrose/Water (Dextrose 50% In Water) 50 ml IVPUSH ONETIME ONE Stop: 12/04/19 23:21 Last Admin: 12/04/19 23:36 Dose: 50 ml Haloperidol Decanoate (Haldol Decanoate) 5 mg IM ONETIME ONE Stop: 12/04/19 11:18 Last Admin: 12/04/19 11:54 Dose: Not Given Haloperidol Lactate (Haldol) 5 mg IM ONETIME ONE Stop: 12/04/19 11:31 Last Admin: 12/04/19 11:53 Dose: 5 mg Haloperidol Lactate (Haldol) 5 mg IM ONETIME ONE Stop: 12/04/19 16:49 Last Admin: 12/04/19 17:03 Dose: 5 mg Haloperidol Lactate (Haldol) 5 mg IM ONETIME ONE Stop: 12/04/19 16:52 Last Admin: 12/04/19 17:03 Dose: Not Given Hydralazine HCl (Apresoline) 25 mg PO Q8H [facility] Last Admin: 12/07/19 07:41 Dose: 25 mg Hydralazine HCl (Apresoline) 25 mg PO ONETIME ONE Stop: 12/07/19 11:40 Last Admin: 12/07/19 11:49 Dose: 25 mg Sodium Chloride (Normal Saline) 1,000 mls @ 999 mls/hr IV .BOLUS ONE Stop: 12/04/19 12:18 Last Admin: 12/04/19 11:54 Dose: 999 mls/hr Lactated Ringer's (Ringers, Lactated) 1,000 mls @ 125 mls/hr IV ASDIRECTED MICHAEL Last Admin: 12/05/19 18:42 Dose: 125 mls/hr Lactated Ringer's (Ringers, Lactated) 500 mls @ 999 mls/hr IV STAT MICHAEL Insulin Aspart (Novolog) 14 unit SUBCUT ONETIME ONE Stop: 12/06/19 09:02 Last Admin: 12/06/19 14:38 Dose: Not Given Insulin Aspart (Novolog) 12 unit SUBCUT ONETIME ONE Stop: 12/06/19 09:21 Last Admin: 12/06/19 09:33 Dose: 12 units Insulin Glargine (Lantus Solostar) 10 units SUBCUT ONETIME ONE Stop: 12/06/19 07:56 Last Admin: 12/06/19 08:25 Dose: 10 units Labetalol HCl (Normodyne) 20 mg IVPUSH ONETIME ONE; Protocol Stop: 12/07/19 04:18 Last Admin: 12/07/19 04:24 Dose: 20 mg Labetalol HCl (Normodyne) 20 mg IVPUSH ONETIME ONE; Protocol Stop: 12/07/19 14:20 Last Admin: 12/07/19 14:37 Dose: 20 mg Metoclopramide HCl (Reglan) 5 mg IVPUSH Q8H [facility] Last Admin: 12/06/19 16:04 Dose: Not Given Promethazine HCl (Phenergan) 25 mg IM ONETIME ONE Stop: 12/04/19 15:35 Last Admin: 12/04/19 15:54 Dose: 25 mg - Exam General: Alert, Oriented, Cooperative, No Acute Distress Neck: Supple Lungs: Clear to Auscultation, Normal Respiratory Effort Cardiovascular: Regular Rate, Regular Rhythm GI/Abdominal Exam: Normal Bowel Sounds, Soft, Non-Tender Neurological: No New Focal Deficit Psy/Mental Status: Alert, Normal Affect, Normal Mood, Anxious Sepsis Event Note - Evaluation Sepsis Screening Result: No Definite Risk - Focused Exam Vital Signs: Vital Signs Temp Pulse Pulse Resp BP BP Pulse Ox 12/07/19 15:54 181/98 H 12/07/19 15:40 188/110 H 12/07/19 11:49 188/98 H 12/07/19 11:00 98.6 F 88 18 188/96 H 95 12/07/19 08:16 95 211/109 H 12/07/19 07:41 198/112 H 12/07/19 07:00 98.7 F 96 18 198/112 H 96 12/07/19 06:03 94 189/103 H Date Exam was Performed: 12/07/19 Time Exam was Performed: 16:04 - Problem List & Annotations (1) Gastroparesis SNOMED Code(s): 080743811 Code(s): K31.84 - GASTROPARESIS Status: Acute Priority: High Current Visit: Yes (2) Vomiting SNOMED Code(s): 630310215 Code(s): R11.10 - VOMITING, UNSPECIFIED Status: Acute Current Visit: Yes (3) OTILIA (acute kidney injury) SNOMED Code(s): 89394455, 68559632 Code(s): N17.9 - ACUTE KIDNEY FAILURE, UNSPECIFIED Status: Acute Current Visit: No - Problem List Review Problem List Initiated/Reviewed/Updated: Yes - My Orders Last 24 Hours: My Active Orders 12/06/19 Dinner Soft Diet [DIET] 12/07/19 16:00 hydrALAZINE [Apresoline] 50 mg PO Q8H 12/07/19 16:15 amLODIPine [Norvasc] 10 mg PO DAILY 12/07/19 21:00 Doxazosin [Cardura] 4 mg PO BEDTIME - Plan Plan:: 34 y/o M admitted for intractable N/V secondary to gastroparesis 1. Gastroparesis - Improved - Zofran for nausea - IV Dilaudid for abdominal pain PRN - PPI for reported GI bleed, although Hb is stable 2. HTN/CKD/DM Type 1- non complaint, has not picked up majority of medications in many months. - SSI , hold lantus as eating is intermittent and tends to have hypoglycemic episodes. -resume antihypertensive meds, Restart Amlodipine and Cardura. Continue Hydralazine, increased to 50 mg TID. MOnitor tonight due to consistently elevated BP 180s SBP -cont to monitor vitals closely Dispo:1 day
[2019-12-07] MEDS: amLODIPine 5 MG Tab PO SCH (16:35)
[2019-12-07] MEDS ORDERED: Doxazosin 4 MG Tab PO SCH (21:00)
[2019-12-07] MEDS ORDERED: Labetalol 100 MG/20 ML MDV IVPUSH PRN (21:31)
[2019-12-07] MEDS ORDERED: Lisinopril 10 MG Tab PO SCH (21:45)
[2019-12-08] MEDS ORDERED: 50% Dextrose in Water 50 ML Syringe IVPUSH ONE (00:18)
--- NOTE | 2019-12-08 00:19 | PCM.SN ---
- Free Text/Narrative Note: Patient was noted by the nursing staff to be doing "push ups" just before his Q4 vitals were due. Patient seems to be trying to increase his BP reading just before vitals are recorded. He has reportedly used his home insulin tonight and has been refusing to surrender his home insulin. He has done this in the past where he used his home insulin as a result of which he had hypoglycemia and rapid response. Could be a psychiatric component to patients attention seeking behavior. On top of that patient also has also exhibited drug seeking behavior , in past any attempt to cut back on his pain regimen results in he becoming increasing aggressive towards nursing staff. Patient is non-compliant with is Meds at home and has never followed up with any specialist for his DM, gastroparesis. I believe we have exhausted all resources to help Mr Stock in our facility, in future patient should be referred to higher level of care to see Endocrine and GI for further evaluation if he comes in to the ER with same complaints of N/V resulting from his gastroparesis as he never follows up on outpatient basis resulting in frequent ER and hospital visits.
[2019-12-08] MEDS ORDERED: 50% Dextrose in Water 50 ML Syringe IVPUSH PRN ×2 (00:26→00:31)
[2019-12-08] MEDS: HYDROmorphone 1 MG/ML Syringe IVPUSH PRN ×2 (05:21→09:18)
[2019-12-08 06:27] LABS: CARBON DIOXIDE,CO2 26.4 mmol/L (21.0-32.0); POTASSIUM,K 3.4 mmol/L (3.5-5.1)
[2019-12-08] MEDS: hydrALAZINE 25 MG Tab PO SCH (07:27)
[2019-12-08] MEDS: Insulin Aspart 100 Units/ML 3 ML Pen SUBCUT SCH ×2 (07:30→12:32)
[2019-12-08] MEDS: Pantoprazole 40 MG in Sodium Chloride 0.9% 10 ML IV SCH (09:17)
[2019-12-08] MEDS: amLODIPine 5 MG Tab PO SCH (09:17)
[2019-12-08] MEDS: Metoprolol Succinate 100 MG Tab.ER PO SCH (09:18)
[2019-12-08] MEDS: Torsemide 20 MG Tab PO SCH (09:18)
[2019-12-08 09:19] VITALS: BP 131/66; PULSE 100
--- NOTE | 2019-12-08 11:36 | PCM.DCSUM1 ---
Discharge Summary - Hospital Course Brief History: The patient is a 34 year old male who past medical history of diabetes, gastroparesis, chronic abdominal pain, cyclic vomiting, and HTN who presented to the ER with diffuse abdominal pain, reported hematemesis. Denies fever/chills, chest pain, shortness of breath, black/bloody stools. Several previous admissions for the same complaints. Reports he is taking his insulin and anti-hypertensive but not able to tell me the dose. In the ER, work up revealed chronic anemia , mildly elevated white count. He was hyperglycemia in 300s, EKG showed sinus tachy but no ST elevation, lipase was normal. In the ER BP was elevated in 200s, received Haldol, Phenergan which helped to calm him down and helped to lower his BP. He was about to be discharged, when he started wailing and c/o of abdominal pain. Patient is admitted for intractable abdominal pain. Diagnosis: Stroke: No - Discharge Data Discharge Date: 12/08/19 Discharge Disposition: Home, Self-Care 01 Condition: Stable - Referral to Home Health Primary Care Physician: PCP None - Discharge Diagnosis/Problem(s) (1) Gastroparesis SNOMED Code(s): 250757648 ICD Code: K31.84 - GASTROPARESIS Status: Acute Priority: High (2) Vomiting SNOMED Code(s): 509809976 ICD Code: R11.10 - VOMITING, UNSPECIFIED Status: Acute (3) OTILIA (acute kidney injury) SNOMED Code(s): 43541334, 69101948 ICD Code: N17.9 - ACUTE KIDNEY FAILURE, UNSPECIFIED Status: Acute - Patient Instructions Diet: Usual Diet as Tolerated, Diabetic Diet Activity: As Tolerated, No Strenuous Activities Showering/Bathing: May Shower Notify Provider of: Fever, Increased Pain, Swelling and Redness, Drainage, Nausea and/or Vomiting - Discharge Plan *PRESCRIPTION DRUG MONITORING PROGRAM REVIEWED*: Not Applicable *COPY OF PRESCRIPTION DRUG MONITORING REPORT IN PATIENT IVELISSE: Not Applicable Home Medications: Home Meds Doxazosin [Cardura] 2 mg PO BEDTIME 09/29/19 [History] Metoprolol Succinate 200 mg PO DAILY 09/29/19 [History] Torsemide 20 mg PO DAILY 09/29/19 [History] atorvaSTATin [Lipitor] 80 mg PO BEDTIME 09/29/19 [History] Insulin Aspart [NovoLOG] 0 unit SUBCUT .UP TO 60 UN DAILY 09/30/19 [History] Metoclopramide [Reglan] 5 mg PO TIDAC #90 tablet 10/10/19 [Rx] Pantoprazole [ProTONIX] 40 mg PO DAILY #30 tab.cr 10/10/19 [Rx] Ondansetron [Zofran ODT] 4 mg PO Q6H PRN #20 tab.dis 12/04/19 [Rx] Aspirin [Adult Low Dose Aspirin EC] 81 mg PO DAILY 12/07/19 [History] Enalapril Maleate 40 mg PO DAILY 12/07/19 [History] Insulin Glarg,Human.Rec.Analog [Lantus] 50 mg SUBCUT BEDTIME 12/07/19 [History] Iron Ag,Ps/C/Fa6/B12/Zn/SA/Sto [Niferex Tablet] 150 mg PO BID 12/07/19 [History] Sertraline [Zoloft] 50 mg PO DAILY 12/07/19 [History] Spironolactone [Aldactone] 25 mg PO BID 12/07/19 [History] Sucralfate 1 gm PO QIDACANDBED 12/07/19 [History] amLODIPine Besylate [Amlodipine Besylate] 10 mg PO DAILY 12/07/19 [History] hydrALAZINE [Apresoline] 25 mg PO TID 12/07/19 [History] hydroCHLOROthiazide [Hydrochlorothiazide] 25 mg PO DAILY 12/07/19 [History] Oxygen Therapy Mode: Room Air Patient Handouts: Gastroparesis Referrals: [facility] [Outside] Chico Rodgers MD [Ordering Only Provider] - 02/07/20 2:30 pm Fitz Infante MD [Physician] - 12/14/19 2:30 pm - Discharge Summary/Plan Comment DC Time >30 min.: No Discharge Summary/Plan Comment: Waqas was admitted secondary to recurrent severe gastroparesis. He was treated with Zofran, Haldol and Dilaudid for pain and nausea. He was restarted on his insulin regimen, minus Lantus due to severe hypoglycemia that occurs in the hospital. BS were stable in 180-250s. He was noted to be self injecting insulin in between meal times. When asked about anti-hypertensive medications, he reports taking all on his list, yet when speak with his pharmacy they reports he has only been picking up Novolog consistently. He reports he is compliant with medications as he is prescribed, but confirms the only pharmacy he gets his meds at is [place] [facility]. Today his BP is better controlled with restarting home medications. He denies any concerns with nausea, he ate breakfast and had mild pain. He was ok with discharge this morning. We were able to get appointment with GI specialist in [place], though this is the last time they are willing to arrange appointments as he never shows up for them. He reports he has no way to get there and then unable to get hotel to stay in when he is there, reporting he has no money. He has shown manipulative behaviors while admitted, such as doing push ups in the room prior to vitals in what appears to be attempts to elevate BP. He is using home insulin while in the hospital without informing nursing staff. We have discussed openly with him that we have nearly exhausted our resources for him, we have no way of effectively treating him in our facility without GI involvement. We would recommend if he returns the ED with gastroparesis complaints, he would benefit from transfer to higher level of care so he is able to be evaluated by GI and Endocrinology. He is aware of this recommendation. He will be discharged home today and continue home medications as previously prescribed. - Patient Data Vitals - Most Recent: Last Vital Signs Temp 99 F 12/08/19 07:15 Pulse 100 12/08/19 09:18 Resp 16 12/08/19 07:15 BP 131/66 12/08/19 09:18 Pulse Ox 98 12/08/19 07:15 Weight - Most Recent: 100 kg I&O - Last 24 hours: Intake & Output 12/07/19 12/08/19 12/08/19 22:59 06:59 14:59 Intake Total 1000 900 Output Total 800 300 Balance 200 600 Lab Results - Last 24 hrs: Laboratory Results - last 24 hr 12/07/19 12/07/19 12/07/19 Range/Units 11:33 15:49 19:09 WBC (4.0-11.0) K/uL RBC (4.50-5.90) M/uL Hgb (13.0-17.0) g/dL Hct (38.0-50.0) % MCV (80.0-98.0) fL MCH (27.0-32.0) pg MCHC (31.0-37.0) g/dL RDW Std Deviation (28.0-62.0) fl RDW Coeff of Dania (11.0-15.0) % Plt Count (150-400) K/uL MPV (7.40-12.00) fL Neut % (Auto) (48.0-80.0) % Lymph % (Auto) (16.0-40.0) % [place] % (Auto) (0.0-15.0) % Eos % (Auto) (0.0-7.0) % Baso % (Auto) (0.0-1.5) % Neut # (Auto) (1.4-5.7) K/uL Lymph # (Auto) (0.6-2.4) K/uL [place] # (Auto) (0.0-0.8) K/uL Eos # (Auto) (0.0-0.7) K/uL Baso # (Auto) (0.0-0.1) K/uL Nucleated RBC % /100WBC Nucleated RBCs # K/uL Sodium (136-148) mmol/L Potassium (3.5-5.1) mmol/L Chloride (98-107) mmol/L Carbon Dioxide (21.0-32.0) mmol/L BUN (7.0-18.0) mg/dL Creatinine (0.8-1.3) mg/dL Est Cr Clr Drug Dosing mL/min Estimated GFR (MDRD) ml/min Glucose (74-106) mg/dL POC Glucose 124 H 216 H 265 H (60-110) mg/dL Calcium (8.5-10.1) mg/dL 12/07/19 12/08/19 12/08/19 Range/Units 21:37 02:53 05:35 WBC 5.23 (4.0-11.0) K/uL RBC 4.07 L (4.50-5.90) M/uL Hgb 8.6 L (13.0-17.0) g/dL Hct 27.5 L (38.0-50.0) % MCV 67.6 L (80.0-98.0) fL MCH 21.1 L (27.0-32.0) pg MCHC 31.3 (31.0-37.0) g/dL RDW Std Deviation 38.2 (28.0-62.0) fl RDW Coeff of Dania 16 H (11.0-15.0) % Plt Count 300 (150-400) K/uL MPV 9.40 (7.40-12.00) fL Neut % (Auto) 56.7 (48.0-80.0) % Lymph % (Auto) 30.8 (16.0-40.0) % [place] % (Auto) 7.3 (0.0-15.0) % Eos % (Auto) 4.6 (0.0-7.0) % Baso % (Auto) 0.6 (0.0-1.5) % Neut # (Auto) 3.0 (1.4-5.7) K/uL Lymph # (Auto) 1.6 (0.6-2.4) K/uL [place] # (Auto) 0.4 (0.0-0.8) K/uL Eos # (Auto) 0.2 (0.0-0.7) K/uL Baso # (Auto) 0.0 (0.0-0.1) K/uL Nucleated RBC % 0.0 /100WBC Nucleated RBCs # 0 K/uL Sodium (136-148) mmol/L Potassium (3.5-5.1) mmol/L Chloride (98-107) mmol/L Carbon Dioxide (21.0-32.0) mmol/L BUN (7.0-18.0) mg/dL Creatinine (0.8-1.3) mg/dL Est Cr Clr Drug Dosing mL/min Estimated GFR (MDRD) ml/min Glucose (74-106) mg/dL POC Glucose 285 H 151 H (60-110) mg/dL Calcium (8.5-10.1) mg/dL 12/08/19 12/08/19 Range/Units 05:35 07:26 WBC (4.0-11.0) K/uL RBC (4.50-5.90) M/uL Hgb (13.0-17.0) g/dL Hct (38.0-50.0) % MCV (80.0-98.0) fL MCH (27.0-32.0) pg MCHC (31.0-37.0) g/dL RDW Std Deviation (28.0-62.0) fl RDW Coeff of Dania (11.0-15.0) % Plt Count (150-400) K/uL MPV (7.40-12.00) fL Neut % (Auto) (48.0-80.0) % Lymph % (Auto) (16.0-40.0) % [place] % (Auto) (0.0-15.0) % Eos % (Auto) (0.0-7.0) % Baso % (Auto) (0.0-1.5) % Neut # (Auto) (1.4-5.7) K/uL Lymph # (Auto) (0.6-2.4) K/uL [place] # (Auto) (0.0-0.8) K/uL Eos # (Auto) (0.0-0.7) K/uL Baso # (Auto) (0.0-0.1) K/uL Nucleated RBC % /100WBC Nucleated RBCs # K/uL Sodium 138 (136-148) mmol/L Potassium 3.4 L (3.5-5.1) mmol/L Chloride 103 (98-107) mmol/L Carbon Dioxide 26.4 (21.0-32.0) mmol/L BUN 16 (7.0-18.0) mg/dL Creatinine 2.3 H (0.8-1.3) mg/dL Est Cr Clr Drug Dosing 44.20 mL/min Estimated GFR (MDRD) 39.9 ml/min Glucose 172 H (74-106) mg/dL POC Glucose 225 H (60-110) mg/dL Calcium 7.5 L (8.5-10.1) mg/dL Med Orders - Current: Current Medications Albuterol/Ipratropium (Duoneb 3.0-0.5 Mg/3 Ml) 3 ml NEB Q4HRRT PRN PRN Reason: Shortness Of Breath/wheezing Amlodipine Besylate (Norvasc) 10 mg PO DAILY MICHAEL Last Admin: 12/08/19 09:17 Dose: 10 mg Dextrose/Water (Dextrose 50% In Water) 50 ml IVPUSH Q2H PRN PRN Reason: Hypoglycemia Diphenhydramine HCl (Benadryl) 25 mg IM Q4H PRN PRN Reason: Agitation Last Admin: 12/04/19 18:19 Dose: 25 mg Doxazosin Mesylate (Cardura) 4 mg PO BEDTIME [facility] Last Admin: 12/07/19 20:41 Dose: 4 mg Haloperidol Lactate (Haldol) 5 mg IM Q8H PRN PRN Reason: Agitation Last Admin: 12/06/19 15:49 Dose: 5 mg Hydralazine HCl (Apresoline) 50 mg PO Q8H [facility] Last Admin: 12/08/19 07:27 Dose: 50 mg Hydromorphone HCl (Dilaudid) 1 mg IVPUSH Q4H PRN PRN Reason: Pain (severe 7-10) Last Admin: 12/08/19 09:18 Dose: 1 mg Pantoprazole Sodium 40 mg/ (Sodium Chloride) 10 mls @ 300 mls/hr IV BID [facility] Last Admin: 12/08/19 09:17 Dose: 300 mls/hr Insulin Aspart (Novolog) 0 unit SUBCUT TIDAC [facility]; Protocol Last Admin: 12/08/19 07:30 Dose: 6 units Labetalol HCl (Normodyne) 20 mg IVPUSH Q4H PRN; Protocol PRN Reason: Hypertension Last Admin: 12/07/19 22:00 Dose: 20 mg Metoprolol Succinate (Toprol Xl) 200 mg PO DAILY [facility] Last Admin: 12/08/19 09:18 Dose: 200 mg Ondansetron HCl (Zofran) 4 mg IVPUSH Q6H PRN PRN Reason: Nausea/Vomiting Last Admin: 12/05/19 04:09 Dose: 4 mg Torsemide (Demadex) 20 mg PO DAILY [facility] Last Admin: 12/08/19 09:18 Dose: 20 mg Discontinued Medications Dextrose/Water (Dextrose 50% In Water) 50 ml IVPUSH ONETIME ONE Stop: 12/04/19 23:21 Last Admin: 12/04/19 23:36 Dose: 50 ml Dextrose/Water (Dextrose 50% In Water) 50 ml IVPUSH ONETIME PRN PRN Reason: Hypoglycemia Dextrose/Water (Dextrose 50% In Water) 50 ml IVPUSH ONETIME ONE Stop: 12/08/19 00:19 Last Admin: 12/08/19 01:33 Dose: Not Given Haloperidol Decanoate (Haldol Decanoate) 5 mg IM ONETIME ONE Stop: 12/04/19 11:18 Last Admin: 12/04/19 11:54 Dose: Not Given Haloperidol Lactate (Haldol) 5 mg IM ONETIME ONE Stop: 12/04/19 11:31 Last Admin: 12/04/19 11:53 Dose: 5 mg Haloperidol Lactate (Haldol) 5 mg IM ONETIME ONE Stop: 12/04/19 16:49 Last Admin: 12/04/19 17:03 Dose: 5 mg Haloperidol Lactate (Haldol) 5 mg IM ONETIME ONE Stop: 12/04/19 16:52 Last Admin: 12/04/19 17:03 Dose: Not Given Hydralazine HCl (Apresoline) 25 mg PO Q8H [facility] Last Admin: 12/07/19 07:41 Dose: 25 mg Hydralazine HCl (Apresoline) 25 mg PO ONETIME ONE Stop: 12/07/19 11:40 Last Admin: 12/07/19 11:49 Dose: 25 mg Sodium Chloride (Normal Saline) 1,000 mls @ 999 mls/hr IV .BOLUS ONE Stop: 12/04/19 12:18 Last Admin: 12/04/19 11:54 Dose: 999 mls/hr Lactated Ringer's (Ringers, Lactated) 1,000 mls @ 125 mls/hr IV ASDIRECTED [facility] Last Admin: 12/05/19 18:42 Dose: 125 mls/hr Lactated Ringer's (Ringers, Lactated) 500 mls @ 999 mls/hr IV STAT MICHAEL Insulin Aspart (Novolog) 14 unit SUBCUT ONETIME ONE Stop: 12/06/19 09:02 Last Admin: 12/06/19 14:38 Dose: Not Given Insulin Aspart (Novolog) 12 unit SUBCUT ONETIME ONE Stop: 12/06/19 09:21 Last Admin: 12/06/19 09:33 Dose: 12 units Insulin Glargine (Lantus Solostar) 10 units SUBCUT ONETIME ONE Stop: 12/06/19 07:56 Last Admin: 12/06/19 08:25 Dose: 10 units Labetalol HCl (Normodyne) 10 mg IVPUSH Q4H PRN; Protocol PRN Reason: Hypertension Last Admin: 12/07/19 03:20 Dose: 10 mg Labetalol HCl (Normodyne) 20 mg IVPUSH ONETIME ONE; Protocol Stop: 12/07/19 04:18 Last Admin: 12/07/19 04:24 Dose: 20 mg Labetalol HCl (Normodyne) 20 mg IVPUSH ONETIME ONE; Protocol Stop: 12/07/19 14:20 Last Admin: 12/07/19 14:37 Dose: 20 mg Lisinopril (Prinivil) 10 mg PO DAILY [facility] Stop: 12/08/19 00:19 Last Admin: 12/07/19 21:52 Dose: Not Given Metoclopramide HCl (Reglan) 5 mg IVPUSH Q8H [facility] Last Admin: 12/06/19 16:04 Dose: Not Given Promethazine HCl (Phenergan) 25 mg IM ONETIME ONE Stop: 12/04/19 15:35 Last Admin: 12/04/19 15:54 Dose: 25 mg
== END 2019-12-08 11:30 | disposition home or self-care (01) ==
LOC: MW.ED 11:03 → MW.MS 15:47 → UNDOADMOB 16:37 → MW.MS 16:37
PROVIDERS: ADMIT Student in an Organized Health Care Education/Training Program; ATTEND Student in an Organized Health Care Education/Training Program
DX: E10.43 Type 1 diabetes mellitus with diabetic autonomic (poly)neuropathy (principal); K31.84 Gastroparesis; K92.0 Hematemesis; D72.829 Elevated white blood cell count, unspecified; E10.65 Type 1 diabetes mellitus with hyperglycemia; I16.1 Hypertensive emergency; N17.9 Acute kidney failure, unspecified; I12.9 Hypertensive chronic kidney disease with stage 1 through stage 4 chronic kidney disease, or unspecified chronic kidney disease; E10.22 Type 1 diabetes mellitus with diabetic chronic kidney disease; N18.9 Chronic kidney disease, unspecified; D63.1 Anemia in chronic kidney disease; Z79.899 Other long term (current) drug therapy; Z88.8 Allergy status to other drugs, medicaments and biological substances; Z91.013 Allergy to seafood; Z88.0 Allergy status to penicillin; Z91.018 Allergy to other foods; Z76.5 Malingerer [conscious simulation]; Z91.19 Patient's noncompliance with other medical treatment and regimen; Z89.519 Acquired absence of unspecified leg below knee
CPT/HCPCS: 36415; 80048; 80053; 80305; 81001; 82962; 83690; 83735; 84100; 85025; 96361; 96372; 96374; 96375; 96376; 99285; A9270; C9113; G0378; J1170; J1200; J1630; J1815; J2405; J2550; J3490; J7030; J7050; J7120; 96360

== ENCOUNTER 2019-12-30 15:54 | Emergency (ER) | payer MEDICAID ==
[2019-12-30] MEDS ORDERED: Ondansetron 4 MG/2 ML SDV IVPUSH ONE (16:01)
[2019-12-30] MEDS ORDERED: Sodium Chloride 0.9% 2.5 ML Syringe FLUSH PRN (16:01)
[2019-12-30] MEDS ORDERED: Sodium Chloride 0.9% 1,000 ML IV ONE ×2 (16:01→16:29)
[2019-12-30] MEDS ORDERED: Sodium Chloride 0.9% 10 ML Syringe FLUSH PRN (16:01)
[2019-12-30] MEDS ORDERED: Pantoprazole 40 MG in Sodium Chloride 0.9% 20 ML IVPUSH ONE (16:10)
--- NOTE | 2019-12-30 16:25 | EDM.PDOC ---
ED HPI GENERAL MEDICAL PROBLEM - General Chief Complaint: Abdominal Pain Stated Complaint: PT BROUGHT IN VIA AMBU Time Seen by Provider: 12/30/19 15:55 Source of Information: Reports: Patient History Limitations: Reports: No Limitations - History of Present Illness INITIAL COMMENTS - FREE TEXT/NARRATIVE: 34-year-old male with history of DM 1, DKA, DM gastroparesis, CKD, UGIB, cyclic vomiting syndrome presents with nausea, vomiting since this morning, along with severe epigastric pain and bright red blood in vomitus. He gave himself 42 units of Lantus last night, and 8 units of NovoLog 1 hour prior to arrival. He denies fever, chills, rectal bleeding. He has an appointment to see Dr. Chico Rodgers (GI) at [place] 02/07/20. ROS: A 10-point review of systems, other than pertinent positives and negatives as stated per HPI, is otherwise negative PHYSICAL EXAM General: AOx4, GCS = 15, severe distress HEENT: dry mucous membrane Neck: supple, no meningismus, no Kernig or Brudzinski Cardiac: S1S2 tachycardia Respiratory: CTAB, no crackles or rales, no wheezing Abdomen: Soft, epigastric tenderness, no rebound or guarding, nondistended, no pulsatile mass. Back: nontender Musculoskeletal: NVI distally, no deformity, right BKA Neuro: No focal deficits MEDICAL DECISION MAKING: I reviewed the patients past medical records, lab and radiographic findings. I discussed the case with family members. My differential diagnosis included: DKA, diabetic gastroparesis, cyclic vomiting syndrome, drug-seeking behavior. Patient's blood work does not demonstrate DKA , his lipase was not elevated, I do not suspect pancreatitis,. His hemoglobin is stable, his creatinine today was 3.2, slightly increased from 2.8 on 12/05. His glucose was 245. After receiving IV Dilaudid, Protonix, Zofran, Reglan, his symptoms are completely resolved and he is sleeping soundly in bed. I do not suspect the need for hospitalization. I instructed him to follow-up with Dr. Chico Rodgers as previously appointed. Onset: Today abdomen Pain Score (Numeric/FACES): 8 - Related Data Allergies Allergy/AdvReac Type Severity Reaction Status Date / Time shrimp Allergy Severe Swelling Verified 12/30/19 16:13 iodine Allergy Unknown Anaphylactic Verified 12/30/19 16:13 Shock Penicillins Allergy Unknown Anaphylactic Verified 12/30/19 16:13 Shock metoclopramide [From Reglan] Allergy Facial Verified 12/30/19 16:13 Spasms shellfish derived Allergy Anaphylactic Verified 12/30/19 16:13 Shock gluten Allergy Unknown Muscle Uncoded 12/30/19 16:13 Aches Home Meds: Home Meds Doxazosin [Cardura] 2 mg PO BEDTIME 09/29/19 [History] Metoprolol Succinate 200 mg PO DAILY 09/29/19 [History] Torsemide 20 mg PO DAILY 09/29/19 [History] atorvaSTATin [Lipitor] 80 mg PO BEDTIME 09/29/19 [History] Insulin Aspart [NovoLOG] 0 unit SUBCUT .UP TO 60 UN DAILY 09/30/19 [History] Metoclopramide [Reglan] 5 mg PO TIDAC #90 tablet 10/10/19 [Rx] Pantoprazole [ProTONIX] 40 mg PO DAILY #30 tab.cr 10/10/19 [Rx] Ondansetron [Zofran ODT] 4 mg PO Q6H PRN #20 tab.dis 12/04/19 [Rx] Aspirin [Adult Low Dose Aspirin EC] 81 mg PO DAILY 12/07/19 [History] Enalapril Maleate 40 mg PO DAILY 12/07/19 [History] Insulin Glarg,Human.Rec.Analog [Lantus] 50 mg SUBCUT BEDTIME 12/07/19 [History] Iron Ag,Ps/C/Fa6/B12/Zn/SA/Sto [Niferex Tablet] 150 mg PO BID 12/07/19 [History] Sertraline [Zoloft] 50 mg PO DAILY 12/07/19 [History] Spironolactone [Aldactone] 25 mg PO BID 12/07/19 [History] Sucralfate 1 gm PO QIDACANDBED 12/07/19 [History] amLODIPine Besylate [Amlodipine Besylate] 10 mg PO DAILY 12/07/19 [History] hydrALAZINE [Apresoline] 25 mg PO TID 12/07/19 [History] hydroCHLOROthiazide [Hydrochlorothiazide] 25 mg PO DAILY 12/07/19 [History] Omeprazole Magnesium [Prilosec Otc] 20 mg PO BID #30 tablet. 12/30/19 [Rx] Past Medical History - Past Health History Medical/Surgical History: Denies Medical/Surgical History HEENT History: Reports: Impaired Vision Other HEENT History: blind right eye Cardiovascular History: Reports: Hypertension Respiratory History: Reports: None Gastrointestinal History: Reports: Gastritis, GERD, Hiatal Hernia, Other (See Below) Other Gastrointestinal History: h/o gastric ulcers, h/o hiatal hernia; gastroparesis Genitourinary History: Reports: Chronic Renal Insuffiency, Diabetic Nephropathy Musculoskeletal History: Reports: Amputation Neurological History: Reports: Neuropathy, Peripheral Other Neuro History: stroke Psychiatric History: Reports: Anxiety Endocrine/Metabolic History: Reports: Diabetes, Type I Other Endocrine/Metabolic History: brittle diabetic. 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 - Past Surgical History Head Surgeries/Procedures: Reports: None HEENT Surgical History: Reports: None Cardiovascular Surgical History: Reports: None Respiratory Surgical History: Reports: None GI Surgical History: Reports: None Male Surgical History: Reports: None Endocrine Surgical History: Reports: None Neurological Surgical History: Reports: None Musculoskeletal Surgical History: Reports: Other (See Below) Other Musculoskeletal Surgeries/Procedures:: right BKA Oncologic Surgical History: Reports: None Dermatological Surgical History: Reports: None Social & Family History - Family History Family Medical History: Noncontributory Cardiac: Reports: High Cholesterol, Hypertension OBGYN: Reports: Neurological: Reports: None Psychiatric: Reports: Anxiety - Caffeine Use Caffeine Use: Reports: Coffee, Energy Drinks, Soda, Tea Other Caffeine Use: daily Caffeine Use Comment: patient is uncooperated - Living Situation & Occupation Living situation: Reports: Single Occupation: Employed (Currently unemployed.) ED ROS GENERAL - Review of Systems Review Of Systems: See Below (see dictation) ED EXAM, GI/ABD - Physical Exam Exam: See Below (see dictation) Course - Vital Signs Last Recorded V/S: Last Vital Signs Temp 97.6 F 12/30/19 16:09 Pulse 111 H 12/30/19 16:09 Resp 23 H 12/30/19 16:09 BP 206/126 H 12/30/19 16:09 Pulse Ox 99 12/30/19 16:09 - Orders/Labs/Meds Orders: Active Orders 24 hr Category Date Time Status Blood Glucose Check, Bedside [RC] ONETIME Care 12/30/19 16:01 Active UA W/MICROSCOPIC [URIN] Stat Lab 12/30/19 16:02 Ordered Sodium Chloride 0.9% [Saline Flush] Med 12/30/19 16:01 Active 10 ml FLUSH ASDIRECTED PRN Sodium Chloride 0.9% [Saline Flush] Med 12/30/19 16:01 Active 2.5 ml FLUSH ASDIRECTED PRN Saline Lock Insert [OM.PC] Stat Oth 12/30/19 16:01 Ordered Medication Orders Sodium Chloride (Saline Flush) 10 ml FLUSH ASDIRECTED PRN PRN Reason: Keep Vein Open Sodium Chloride (Saline Flush) 2.5 ml FLUSH ASDIRECTED PRN PRN Reason: Keep Vein Open Labs: Laboratory Tests 12/30/19 12/30/19 12/30/19 Range/Units 16:02 16:02 16:02 WBC 11.26 H (4.0-11.0) K/uL RBC 5.31 (4.50-5.90) M/uL Hgb 11.2 L (13.0-17.0) g/dL Hct 36.3 L (38.0-50.0) % MCV 68.4 L (80.0-98.0) fL MCH 21.1 L (27.0-32.0) pg MCHC 30.9 L (31.0-37.0) g/dL RDW Std Deviation 40.1 (28.0-62.0) fl RDW Coeff of Dania 16 H (11.0-15.0) % Plt Count 401 H (150-400) K/uL MPV 11.10 (7.40-12.00) fL Neut % (Auto) 78.2 (48.0-80.0) % Lymph % (Auto) 16.1 (16.0-40.0) % [place] % (Auto) 5.1 (0.0-15.0) % Eos % (Auto) 0.2 (0.0-7.0) % Baso % (Auto) 0.4 (0.0-1.5) % Neut # (Auto) 8.8 H (1.4-5.7) K/uL Lymph # (Auto) 1.8 (0.6-2.4) K/uL [place] # (Auto) 0.6 (0.0-0.8) K/uL Eos # (Auto) 0.0 (0.0-0.7) K/uL Baso # (Auto) 0.1 (0.0-0.1) K/uL Nucleated RBC % 0.2 /100WBC Nucleated RBCs # 0 K/uL ABG pH (7.35-7.45) ABG pCO2 (35-45) mmHG ABG pO2 (75-100) mmHG ABG HCO3 (22-26) mEq/L ABG Total CO2 ABG Base Excess (-2.0-2.0) Sodium 143 (136-148) mmol/L Potassium 4.0 (3.5-5.1) mmol/L Chloride 106 (98-107) mmol/L Carbon Dioxide 23.4 (21.0-32.0) mmol/L BUN 41 H (7.0-18.0) mg/dL Creatinine 3.2 H (0.8-1.3) mg/dL Est Cr Clr Drug Dosing 32.83 mL/min Estimated GFR (MDRD) 27.2 ml/min Glucose 245 H (74-106) mg/dL POC Glucose (60-110) mg/dL Calcium 9.2 (8.5-10.1) mg/dL Total Bilirubin 0.2 (0.2-1.0) mg/dL AST 22 (15-37) IU/L ALT 27 (14-63) IU/L Alkaline Phosphatase 117 H (46-116) U/L Total Protein 7.5 (6.4-8.2) g/dL Albumin 2.9 L (3.4-5.0) g/dL Globulin 4.6 H (2.6-4.0) g/dL Albumin/Globulin Ratio 0.6 L (0.9-1.6) Lipase (73-393) U/L Ketones NEGATIVE (NEG) 12/30/19 12/30/19 12/30/19 Range/Units 16:06 16:37 16:57 WBC (4.0-11.0) K/uL RBC (4.50-5.90) M/uL Hgb (13.0-17.0) g/dL Hct (38.0-50.0) % MCV (80.0-98.0) fL MCH (27.0-32.0) pg MCHC (31.0-37.0) g/dL RDW Std Deviation (28.0-62.0) fl RDW Coeff of Dania (11.0-15.0) % Plt Count (150-400) K/uL MPV (7.40-12.00) fL Neut % (Auto) (48.0-80.0) % Lymph % (Auto) (16.0-40.0) % [place] % (Auto) (0.0-15.0) % Eos % (Auto) (0.0-7.0) % Baso % (Auto) (0.0-1.5) % Neut # (Auto) (1.4-5.7) K/uL Lymph # (Auto) (0.6-2.4) K/uL [place] # (Auto) (0.0-0.8) K/uL Eos # (Auto) (0.0-0.7) K/uL Baso # (Auto) (0.0-0.1) K/uL Nucleated RBC % /100WBC Nucleated RBCs # K/uL ABG pH 7.481 H (7.35-7.45) ABG pCO2 30 L (35-45) mmHG ABG pO2 113 H (75-100) mmHG ABG HCO3 22 (22-26) mEq/L ABG Total CO2 20.6 ABG Base Excess -0.7 (-2.0-2.0) Sodium (136-148) mmol/L Potassium (3.5-5.1) mmol/L Chloride (98-107) mmol/L Carbon Dioxide (21.0-32.0) mmol/L BUN (7.0-18.0) mg/dL Creatinine (0.8-1.3) mg/dL Est Cr Clr Drug Dosing mL/min Estimated GFR (MDRD) ml/min Glucose (74-106) mg/dL POC Glucose 152 H (60-110) mg/dL Calcium (8.5-10.1) mg/dL Total Bilirubin (0.2-1.0) mg/dL AST (15-37) IU/L ALT (14-63) IU/L Alkaline Phosphatase (46-116) U/L Total Protein (6.4-8.2) g/dL Albumin (3.4-5.0) g/dL Globulin (2.6-4.0) g/dL Albumin/Globulin Ratio (0.9-1.6) Lipase 32 L (73-393) U/L Ketones (NEG) Meds: Medications Generic Name Dose Route Start Last Admin Trade Name Freq PRN Reason Stop Dose Admin Sodium Chloride 10 ml 12/30/19 16:01 Saline Flush FLUSH ASDIRECTED PRN Keep Vein Open Sodium Chloride 2.5 ml 12/30/19 16:01 Saline Flush FLUSH ASDIRECTED PRN Keep Vein Open Discontinued Medications Generic Name Dose Route Start Last Admin Trade Name Freq PRN Reason Stop Dose Admin Diphenhydramine HCl 50 mg 12/30/19 16:29 Benadryl IVPUSH 12/30/19 16:30 ONETIME ONE Hydromorphone HCl 1 mg 12/30/19 16:29 12/30/19 16:56 Dilaudid IVPUSH 12/30/19 16:30 1 mg ONETIME ONE Administration Sodium Chloride 1,000 mls @ 999 mls/hr 12/30/19 16:01 12/30/19 16:32 Normal Saline IV 12/30/19 17:01 999 mls/hr BOLUS ONE Administration Pantoprazole Sodium 40 mg/ 20 mls @ 420 mls/hr 12/30/19 16:10 12/30/19 16:32 Sodium Chloride IVPUSH 12/30/19 16:12 420 mls/hr ONETIME ONE Administration Sodium Chloride 1,000 mls @ 999 mls/hr 12/30/19 16:29 12/30/19 17:17 Normal Saline IV 12/30/19 17:29 999 mls/hr .Bolus ONE Administration Metoclopramide HCl 10 mg 12/30/19 16:29 12/30/19 16:56 Reglan IVPUSH 12/30/19 16:30 10 mg ONETIME ONE Administration Ondansetron HCl 4 mg 12/30/19 16:01 12/30/19 16:32 Zofran IVPUSH 12/30/19 16:02 4 mg ONETIME ONE Administration - Re-Assessments/Exams Free Text/Narrative Re-Assessment/Exam: 12/30/19 16:35 Ordered IV fluids, Protonix 40 mg IV, Reglan 10 mg IV, Benadryl 50 mg IV, Dilaudid 1 mg IV, Zofran 4 mg IV. Free Text/Narrative Re-Assessment/Exam: 12/30/19 18:25 -patient is resting comfortably, has not been actively vomiting since receiving medications, repeat abdominal exam is soft and nontender today epigastrium. Free Text/Narrative Re-Assessment/Exam: 12/30/19 18:36 -after treatments and a prolonged observation period in the ER, the patient improved clinically and is stable for discharge. I performed a repeat examination and the patient has not demonstrated any new abnormal findings. Patient exhibits normal vital signs and has exhibited a normal gait. I advised the patient to return to the ER for reevaluation if symptoms worsened , and to follow up with their GI doctor as appointed Departure - Departure Time of Disposition: 18:40 Disposition: Home, Self-Care 01 Condition: Good Clinical Impression: Diabetic gastroparesis, Gastritis, Chronic renal insufficiency, Cyclical vomiting Hematemesis Qualifiers: Nausea presence: with nausea Qualified Code(s): K92.0 - Hematemesis Gastrointestinal hemorrhage Qualifiers: GI bleed type/associated pathology: unspecified gastrointestinal hemorrhage type Qualified Code(s): K92.2 - Gastrointestinal hemorrhage, unspecified - Discharge Information Prescriptions: Omeprazole Magnesium [Prilosec Otc] 20 mg PO BID #30 tablet. Instructions: Nausea and Vomiting, Adult, [id number], Chronic Kidney Disease , Adult, [id number], Gastrointestinal Bleeding, [id number], Cyclic Vomiting Syndrome, Adult Referrals: Chico Rodgers MD [Ordering Only Provider] - 3 Days Forms: ED Department Discharge Additional Instructions: The following information is given to patients seen in the emergency department who are being discharged to home. This information is to outline your options for follow-up care. We provide all patients seen in our emergency department with a follow-up referral. The need for follow-up, as well as the timing and circumstances, are variable depending upon the specifics of your emergency department visit. If you don't have a primary care physician on staff, we will provide you with a referral. We always advise you to contact your personal physician following an emergency department visit to inform them of the circumstance of the visit and for follow-up with them and/or the need for any referrals to a consulting specialist. The emergency department will also refer you to a specialist when appropriate. This referral assures that you have the opportunity for follow-up care with a specialist. All of these measure are taken in an effort to provide you with optimal care, which includes your follow-up. Under all circumstances we always encourage you to contact your private physician who remains a resource for coordinating your care. When calling for follow-up care, please make the office aware that this follow-up is from your recent emergency room visit. If for any reason you are refused follow-up, please contact the [facility] Emergency Department at and asked to speak to the emergency department charge nurse. Sepsis Event Note - Evaluation Sepsis Screening Result: No Definite Risk - Focused Exam Vital Signs: Vital Signs Temp Pulse Resp BP Pulse Ox 12/30/19 16:09 97.6 F 111 H 23 H 206/126 H 99 Date Exam was Performed: 12/30/19 Time Exam was Performed: 18:55 - My Orders Last 24 Hours: My Active Orders 12/30/19 16:01 Blood Glucose Check, Bedside [RC] ONETIME Sodium Chloride 0.9% [Saline Flush] 10 ml FLUSH ASDIRECTED PRN Sodium Chloride 0.9% [Saline Flush] 2.5 ml FLUSH ASDIRECTED PRN Saline Lock Insert [OM.PC] Stat 12/30/19 16:02 UA W/MICROSCOPIC [URIN] Stat - Assessment/Plan Last 24 Hours: My Active Orders 12/30/19 16:01 Blood Glucose Check, Bedside [RC] ONETIME Sodium Chloride 0.9% [Saline Flush] 10 ml FLUSH ASDIRECTED PRN Sodium Chloride 0.9% [Saline Flush] 2.5 ml FLUSH ASDIRECTED PRN Saline Lock Insert [OM.PC] Stat 12/30/19 16:02 UA W/MICROSCOPIC [URIN] Stat
[2019-12-30] MEDS ORDERED: HYDROmorphone 2 MG/ML Syringe IVPUSH ONE (16:29)
[2019-12-30] MEDS ORDERED: diphenhydrAMINE 50 MG/ML SDV IVPUSH ONE (16:29)
[2019-12-30] MEDS ORDERED: Metoclopramide 10 MG/2 ML SDV IVPUSH ONE (16:29)
[2019-12-30 16:42] LABS: CARBON DIOXIDE,CO2 23.4 mmol/L (21.0-32.0)
--- NOTE | 2019-12-30 17:23 | CR ---
Chest portable view of the chest was obtained. Comparison: Prior chest x-ray of 11/27/19. Heart size and mediastinum are normal. Lungs show no acute parenchymal change. Bony structures are grossly intact. Impression: 1. Nothing acute is appreciated on portable chest x-ray. Diagnostic code #1 Study was dictated in MDT
[2019-12-30 19:29] VITALS: BP 178/99; PULSE 98
== END 2019-12-30 19:05 | disposition home or self-care (01) ==
LOC: MW.ED 15:54
DX: K92.0 Hematemesis (principal); E10.43 Type 1 diabetes mellitus with diabetic autonomic (poly)neuropathy; K31.84 Gastroparesis; K29.70 Gastritis, unspecified, without bleeding; G43.A0 Cyclical vomiting, in migraine, not intractable; I12.9 Hypertensive chronic kidney disease with stage 1 through stage 4 chronic kidney disease, or unspecified chronic kidney disease; N18.9 Chronic kidney disease, unspecified; E10.22 Type 1 diabetes mellitus with diabetic chronic kidney disease; E10.42 Type 1 diabetes mellitus with diabetic polyneuropathy; E10.21 Type 1 diabetes mellitus with diabetic nephropathy; K21.9 Gastro-esophageal reflux disease without esophagitis; F41.9 Anxiety disorder, unspecified; Z79.899 Other long term (current) drug therapy; Z91.013 Allergy to seafood; Z88.0 Allergy status to penicillin; Z91.09 Other allergy status, other than to drugs and biological substances; Z88.8 Allergy status to other drugs, medicaments and biological substances; Z79.82 Long term (current) use of aspirin
CPT/HCPCS: 36415; 36600; 71045; 80053; 82009; 82803; 82962; 83690; 85025; 96361; 96374; 96375; 99284; C9113; J1170; J2405; J2765; J7030

== ENCOUNTER 2019-12-30 23:03 | Emergency (ER) | payer MEDICAID ==
[2019-12-31] MEDS ORDERED: Haloperidol Lactate 5 MG/ML SDV IM ONE (00:31)
--- NOTE | 2019-12-31 01:02 | EDM.PDOC ---
ED HPI GENERAL MEDICAL PROBLEM - General Chief Complaint: Abdominal Pain Stated Complaint: ABDOMINAL PAIN Time Seen by Provider: 12/30/19 23:52 Source of Information: Reports: Patient History Limitations: Reports: No Limitations - History of Present Illness INITIAL COMMENTS - FREE TEXT/NARRATIVE: HISTORY OF PRESENT ILLNESS: Patient is a 34-year-old male well-known to this facility with history of diabetes, gastroparesis, chronic kidney disease cyclic vomiting syndrome who presents to the ER with complaints of continued nausea and vomiting since this evening. Patient was seen here earlier today and discharged. He left the facilty less than 4 hours ago after full workup including CBC, CMP, lipase, ketones and treatment with Benadryl, Dilaudid, IVF, Pepcid, Reglan, Zofran. He states that he went home and had several more episodes of vomiting and crampy abdominal pain which is consistent with his prior episodes and similar in duration, severity and character. States he is not been able to take his blood pressure medication secondary to vomiting. Denies any fevers or chills. No chest pain or dyspnea. Denies any urinary symptoms or rash. No syncope. REVIEW OF SYSTEMS: Other than the symptoms associated with the present events, the following is reported with regard to recent health: General: (-) fever. HENT: (-) congestion. Respiratory: (-) cough. Cardiovascular: (-) chest pain. GI: (+) abdominal pain. : (-) urinary complaints. Musculoskeletal: (-) other aches or pains. Endocrine: (-) generalized weakness. Neurological: (-) localized weakness. Skin: (-) rash PAST MEDICAL HISTORY: reviewed as per nursing notes SOCIAL HISTORY: reviewed as per nursing notes, MEDICATIONS: Per nurse's note ALLERGIES: Per nurse's note, reviewed by me PHYSICAL EXAMINATION: GENERALIZED APPEARANCE: well developed, well nourished in no distress when staff not present in room, groaning when staff walk by. VITAL SIGNS: Per nurse's note, reviewed by me SKIN: Warm, dry; (-) cyanosis; (-) rash. HEAD: (-) scalp swelling, (-) tenderness. EYES: (-) conjunctival pallor, (-) scleral icterus. ENMT: (-) stridor; mucous membranes moist. NECK: (-) tenderness, (-) stiffness, CHEST AND RESPIRATORY: (-) rales, (-) rhonchi, (-) wheezes; breath sounds equal bilaterally. HEART AND CARDIOVASCULAR: (-) irregularity; (-) murmur, (-) gallop. ABDOMEN AND GI: Soft; (-) tenderness with deep pressure of stethoscope with auscultation, (-) guarding, (-) rebound, (-) palpable masses, (-) CVAT EXTREMITIES: left AKA (-) edema. NEURO AND PSYCH: Alert. Cranial nerves grossly intact; strength symmetric. gait steady EMERGENCY DEPARTMENT COURSE AND TREATMENT: Patient's condition improved during Emergency Department evaluation. Given Haldol 5 mg IM with improvement of symptoms. No further vomiting in ED. FSBS noted to be elevated, labs ordered. Does not appear to be in DKA. Well hydrated and nontoxic appearing. After history, physical exam, and diagnostic evaluation, the etiology for the patient' s vomiting is unclear but likely secondary to his cyclic vomiting syndrome. On serial examination, the abdomen remained soft without peritoneal signs. Laboratory data was non-diagnostic. After treatment, vomiting resolved and hydration status was satisfactory. I think the patient is at low risk for significant abdominal pathology based on serial exams and ER evaluation. I felt that outpatient management with close followup by the patient's primary care provider in 1-2 days was appropriate. The patient's questions were answered, and discharge precautions and reasons to return to the ER were discussed. PLAN AND FOLLOW-UP: Patient received written and verbal instructions regarding this condition. Return to ED immediately with any new or worsening symptoms. Follow up to be arranged by patient with pcp in 1-2 days for further evaluation. Given discharge precautions. Patient expressed verbal understanding. Abdomen Pain Score (Numeric/FACES): 8 - Related Data Allergies Allergy/AdvReac Type Severity Reaction Status Date / Time shrimp Allergy Severe Swelling Verified 12/30/19 23:43 iodine Allergy Unknown Anaphylactic Verified 12/30/19 23:43 Shock Penicillins Allergy Unknown Anaphylactic Verified 12/30/19 23:43 Shock metoclopramide [From Reglan] Allergy Facial Verified 12/30/19 23:43 Spasms shellfish derived Allergy Anaphylactic Verified 12/30/19 23:43 Shock gluten Allergy Unknown Muscle Uncoded 12/30/19 23:43 Aches Home Meds: Home Meds Doxazosin [Cardura] 2 mg PO BEDTIME 09/29/19 [History] Metoprolol Succinate 200 mg PO DAILY 09/29/19 [History] Torsemide 20 mg PO DAILY 09/29/19 [History] atorvaSTATin [Lipitor] 80 mg PO BEDTIME 09/29/19 [History] Insulin Aspart [NovoLOG] 0 unit SUBCUT .UP TO 60 UN DAILY 09/30/19 [History] Metoclopramide [Reglan] 5 mg PO TIDAC #90 tablet 10/10/19 [Rx] Pantoprazole [ProTONIX] 40 mg PO DAILY #30 tab.cr 10/10/19 [Rx] Ondansetron [Zofran ODT] 4 mg PO Q6H PRN #20 tab.dis 12/04/19 [Rx] Aspirin [Adult Low Dose Aspirin EC] 81 mg PO DAILY 12/07/19 [History] Enalapril Maleate 40 mg PO DAILY 12/07/19 [History] Insulin Glarg,Human.Rec.Analog [Lantus] 50 mg SUBCUT BEDTIME 12/07/19 [History] Iron Ag,Ps/C/Fa6/B12/Zn/SA/Sto [Niferex Tablet] 150 mg PO BID 12/07/19 [History] Sertraline [Zoloft] 50 mg PO DAILY 12/07/19 [History] Spironolactone [Aldactone] 25 mg PO BID 12/07/19 [History] Sucralfate 1 gm PO QIDACANDBED 12/07/19 [History] amLODIPine Besylate [Amlodipine Besylate] 10 mg PO DAILY 12/07/19 [History] hydrALAZINE [Apresoline] 25 mg PO TID 12/07/19 [History] hydroCHLOROthiazide [Hydrochlorothiazide] 25 mg PO DAILY 12/07/19 [History] Omeprazole Magnesium [Prilosec Otc] 20 mg PO BID #30 tablet. 12/30/19 [Rx] Past Medical History - Past Health History Medical/Surgical History: Denies Medical/Surgical History HEENT History: Reports: Impaired Vision Other HEENT History: blind right eye Cardiovascular History: Reports: Hypertension Respiratory History: Reports: None Gastrointestinal History: Reports: Gastritis, GERD, Hiatal Hernia, Other (See Below) Other Gastrointestinal History: h/o gastric ulcers, h/o hiatal hernia; gastroparesis Genitourinary History: Reports: Chronic Renal Insuffiency, Diabetic Nephropathy Musculoskeletal History: Reports: Amputation Neurological History: Reports: Neuropathy, Peripheral Other Neuro History: stroke Psychiatric History: Reports: Anxiety Endocrine/Metabolic History: Reports: Diabetes, Type I Other Endocrine/Metabolic History: brittle diabetic. 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 - Past Surgical History Head Surgeries/Procedures: Reports: None HEENT Surgical History: Reports: None Cardiovascular Surgical History: Reports: None Respiratory Surgical History: Reports: None GI Surgical History: Reports: None Male Surgical History: Reports: None Endocrine Surgical History: Reports: None Neurological Surgical History: Reports: None Musculoskeletal Surgical History: Reports: Other (See Below) Other Musculoskeletal Surgeries/Procedures:: right BKA Oncologic Surgical History: Reports: None Dermatological Surgical History: Reports: None Social & Family History - Family History Family Medical History: Noncontributory Cardiac: Reports: High Cholesterol, Hypertension OBGYN: Reports: Neurological: Reports: None Psychiatric: Reports: Anxiety - Tobacco Use Smoking Status *Q: Never Smoker - Caffeine Use Caffeine Use: Reports: None Other Caffeine Use: daily Caffeine Use Comment: patient is uncooperated - Recreational Drug Use Recreational Drug Use: Yes Drug Use in Last 12 Months: Yes Recreational Drug Type: Reports: Marijuana/Hashish - Living Situation & Occupation Living situation: Reports: Single Occupation: Employed (Currently unemployed.) ED ROS GENERAL - Review of Systems Review Of Systems: See Below (see dictation) ED EXAM, GI/ABD - Physical Exam Exam: See Below (see dictation) Course - Vital Signs Last Recorded V/S: Last Vital Signs Temp 97.8 F 12/30/19 23:35 Pulse 92 12/31/19 00:44 Resp 18 12/31/19 00:44 BP 191/110 H 12/31/19 00:44 Pulse Ox 98 12/31/19 00:44 - Orders/Labs/Meds Orders: Active Orders 24 hr Category Date Time Status Blood Glucose Check, Bedside [RC] ONETIME Care 04/18/20 00:32 Active UA RFX FRANTZ AND CULT IF INDIC [URIN] Stat Lab 12/31/19 00:51 Ordered Labs: Laboratory Tests 12/31/19 12/31/19 12/31/19 Range/Units 00:45 01:07 01:07 Sodium 138 (136-148) mmol/L Potassium 5.0 (3.5-5.1) mmol/L Chloride 103 (98-107) mmol/L Carbon Dioxide 21.5 (21.0-32.0) mmol/L BUN 43 H (7.0-18.0) mg/dL Creatinine 2.8 H (0.8-1.3) mg/dL Est Cr Clr Drug Dosing 37.52 mL/min Estimated GFR (MDRD) 31.8 ml/min Glucose 410 H (74-106) mg/dL POC Glucose 377 H (60-110) mg/dL Calcium 7.7 L (8.5-10.1) mg/dL Ketones SMALL H (NEG) Meds: Medications Discontinued Medications Generic Name Dose Route Start Last Admin Trade Name Freq PRN Reason Stop Dose Admin Haloperidol Lactate 5 mg 12/31/19 00:31 12/31/19 00:41 Haldol IM 12/31/19 00:32 5 mg ONETIME ONE Administration Departure - Departure Time of Disposition: 01:55 Disposition: Home, Self-Care 01 Condition: Good Clinical Impression: Vomiting, Abdominal pain, Uncontrolled hypertension, History of uncontrolled diabetes - Discharge Information *PRESCRIPTION DRUG MONITORING PROGRAM REVIEWED*: Not Applicable *COPY OF PRESCRIPTION DRUG MONITORING REPORT IN PATIENT IVELISSE: Not Applicable Instructions: Abdominal Pain, Adult, [id number], Nausea and Vomiting, Adult, Preventing Hypertension Referrals: PCP,None [Primary Care Provider] - 1 Day Kilo Stanley [Ordering Only Provider] - 1 Day Forms: ED Department Discharge Additional Instructions: The following information is given to patients seen in the emergency department who are being discharged to home. This information is to outline your options for follow-up care. We provide all patients seen in our emergency department with a follow-up referral. The need for follow-up, as well as the timing and circumstances, are variable depending upon the specifics of your emergency department visit. If you don't have a primary care physician on staff, we will provide you with a referral. We always advise you to contact your personal physician following an emergency department visit to inform them of the circumstance of the visit and for follow-up with them and/or the need for any referrals to a consulting specialist. The emergency department will also refer you to a specialist when appropriate. This referral assures that you have the opportunity for follow-up care with a specialist. All of these measure are taken in an effort to provide you with optimal care, which includes your follow-up. Under all circumstances we always encourage you to contact your private physician who remains a resource for coordinating your care. When calling for follow-up care, please make the office aware that this follow-up is from your recent emergency room visit. If for any reason you are refused follow-up, please contact the [facility] Emergency Department at and asked to speak to the emergency department charge nurse. Sepsis Event Note - Evaluation Sepsis Screening Result: No Definite Risk - Focused Exam Vital Signs: Vital Signs Temp Pulse Resp BP Pulse Ox 12/31/19 00:44 92 18 191/110 H 98 12/30/19 23:35 97.8 F 114 H 18 210/118 H 98 Date Exam was Performed: 12/31/19 Time Exam was Performed: 02:01 - My Orders Last 24 Hours: My Active Orders 12/31/19 00:32 Blood Glucose Check, Bedside [RC] ONETIME 12/31/19 00:51 UA RFX FRANTZ AND CULT IF INDIC [URIN] Stat - Assessment/Plan Last 24 Hours: My Active Orders 12/31/19 00:32 Blood Glucose Check, Bedside [RC] ONETIME 12/31/19 00:51 UA RFX FRANTZ AND CULT IF INDIC [URIN] Stat
[2019-12-31 01:41] LABS: CARBON DIOXIDE,CO2 21.5 mmol/L (21.0-32.0)
[2019-12-31 02:19] VITALS: BP 180/105; PULSE 104
== END 2019-12-31 02:15 | disposition home or self-care (01) ==
LOC: MW.ED 23:03
DX: R11.2 Nausea with vomiting, unspecified (principal); R10.9 Unspecified abdominal pain; I12.9 Hypertensive chronic kidney disease with stage 1 through stage 4 chronic kidney disease, or unspecified chronic kidney disease; E11.22 Type 2 diabetes mellitus with diabetic chronic kidney disease; N18.9 Chronic kidney disease, unspecified; D63.1 Anemia in chronic kidney disease; K21.9 Gastro-esophageal reflux disease without esophagitis; E11.42 Type 2 diabetes mellitus with diabetic polyneuropathy; F41.9 Anxiety disorder, unspecified; Z89.512 Acquired absence of left leg below knee; Z91.013 Allergy to seafood; Z88.0 Allergy status to penicillin; Z91.018 Allergy to other foods; Z88.8 Allergy status to other drugs, medicaments and biological substances; Z79.4 Long term (current) use of insulin; Z79.82 Long term (current) use of aspirin; Z79.899 Other long term (current) drug therapy
CPT/HCPCS: 36415; 80048; 82009; 82962; 96372; 99284; J1630; 99283

== ENCOUNTER 2020-02-12 13:08 | Emergency (ER) | payer MEDICAID ==
[2020-02-12] MEDS ORDERED: Haloperidol Lactate 5 MG/ML SDV IM ONE ×2 (13:24→17:14)
[2020-02-12] MEDS ORDERED: Lidocaine 2% Jelly 30 ML Tube MUCMEM STA (13:26)
[2020-02-12] MEDS ORDERED: Pantoprazole 80 MG in Sodium Chloride 0.9% 20 ML IVPUSH ONE (13:37)
[2020-02-12] MEDS ORDERED: Pantoprazole 80 MG in Sodium Chloride 0.9% 20 ML IV ONE (13:38)
[2020-02-12] MEDS ORDERED: Midazolam 1 MG/ML 2 ML SDV IVPUSH ONE (13:40)
[2020-02-12 14:10] LABS: CARBON DIOXIDE,CO2 26.3 mmol/L (21.0-32.0); POTASSIUM,K 3.6 mmol/L (3.5-5.1)
--- NOTE | 2020-02-12 14:17 | EDM.PDOC ---
ED [facility] GENERAL MEDICAL PROBLEM - General Chief Complaint: Abdominal Pain Stated Complaint: STOMACH PAIN AND VOMITTING Time Seen by Provider: 02/12/20 13:15 - History of Present Illness INITIAL COMMENTS - FREE TEXT/NARRATIVE: HISTORY AND PHYSICAL: History of present illness: This 34-year-old male with a complicated past medical history of gastroparesis, GI bleed, diabetes mellitus, and hypertension presents emergency department with severe abdominal pain, persistent vomiting, and hematemesis. Patient states this began yesterday and is not getting better. He has had this in the past. He denies any fever. He rates his pain as severe. No hematochezia. No melena. Denies any other associated signs or symptoms. No other modifying, aggravating or alleviating factors. Review of systems: A 10-point review of systems, other than pertinent positives and negatives as stated per HPI, is otherwise negative. Past medical history: As per history of present illness and as reviewed below otherwise noncontributory. Surgical history: As per history of present illness and as reviewed below otherwise noncontributory. Social history: No reported history of drug or alcohol abuse. Family history: As per history of present illness and as reviewed below otherwise noncontributory. Physical exam: VITAL SIGNS: Reviewed. GENERAL: Appears to be in moderate to severe distress. He is intermittently retching and blood clots and vomitus with blood are coming out. He is diaphoretic. His capillary refill is immediate. He is severely tachycardic. HEAD: No signs of head trauma. EYES: Pupils are equal. Extraocular motions intact. EARS: Hearing grossly intact. MOUTH: Oropharynx is normal. NECK: No adenopathy, no JVD. CHEST: Chest with clear breath sounds bilaterally. No wheezes, rales, or rhonchi. CARDIAC: Tachycardia, regular him, I do not appreciate a murmur. VASCULAR: Peripheral pulses normal and equal in all extremities. ABDOMEN: Soft, diffusely tender, no distention, no rebound or guarding. No masses palpated. MUSCULOSKELETAL: Good range of motion of all major joints. Extremities without clubbing, cyanosis or edema. NEUROLOGIC EXAM: Alert and oriented x 3. No focal sensory or motor deficits. Speech normal. Follows commands. PSYCHIATRIC: Mood normal. SKIN: No rash or lesions. Initial Differential Diagnosis & Plan: Gastric ulcer, gastritis, perforation, variceal bleeding I will perform IV guided ultrasound secondary to the patient's difficult to start IV access reported by the nursing staff who know him well. The patient will also have an NG tube placed to help with his evacuation of vomitus/blood. We will perform a CT scan of the abdomen pelvis, give empiric antibiotics, and control his nausea and vomiting. Definitive disposition and diagnosis as appropriate pending reevaluation and review of above. Abdomen Pain Score (Numeric/FACES): 8 - Related Data Allergies Allergy/AdvReac Type Severity Reaction Status Date / Time shrimp Allergy Severe Swelling Verified 02/12/20 13:22 iodine Allergy Unknown Anaphylactic Verified 02/12/20 13:22 Shock Penicillins Allergy Unknown Anaphylactic Verified 02/12/20 13:22 Shock shellfish derived Allergy Anaphylactic Verified 02/12/20 13:22 Shock gluten Allergy Unknown Muscle Uncoded 02/12/20 13:23 Aches Home Meds: Home Meds Doxazosin [Cardura] 2 mg PO BEDTIME 09/29/19 [History] Metoprolol Succinate 200 mg PO DAILY 09/29/19 [History] Torsemide 20 mg PO DAILY 09/29/19 [History] atorvaSTATin [Lipitor] 80 mg PO BEDTIME 09/29/19 [History] Insulin Aspart [NovoLOG] 0 unit SUBCUT .UP TO 60 UN DAILY 09/30/19 [History] Metoclopramide [Reglan] 5 mg PO TIDAC #90 tablet 10/10/19 [Rx] Pantoprazole [ProTONIX] 40 mg PO DAILY #30 tab.cr 10/10/19 [Rx] Ondansetron [Zofran ODT] 4 mg PO Q6H PRN #20 tab.dis 12/04/19 [Rx] Aspirin [Adult Low Dose Aspirin EC] 81 mg PO DAILY 12/07/19 [History] Enalapril Maleate 40 mg PO DAILY 12/07/19 [History] Insulin Glarg,Human.Rec.Analog [Lantus] 50 mg SUBCUT BEDTIME 12/07/19 [History] Iron Ag,Ps/C/Fa6/B12/Zn/SA/Sto [Niferex Tablet] 150 mg PO BID 12/07/19 [History] Sertraline [Zoloft] 50 mg PO DAILY 12/07/19 [History] Spironolactone [Aldactone] 25 mg PO BID 12/07/19 [History] Sucralfate 1 gm PO QIDACANDBED 12/07/19 [History] amLODIPine Besylate [Amlodipine Besylate] 10 mg PO DAILY 12/07/19 [History] hydrALAZINE [Apresoline] 25 mg PO TID 12/07/19 [History] hydroCHLOROthiazide [Hydrochlorothiazide] 25 mg PO DAILY 12/07/19 [History] Omeprazole Magnesium [Prilosec Otc] 20 mg PO BID #30 tablet. 12/30/19 [Rx] Past Medical History - Past Health History Medical/Surgical History: Denies Medical/Surgical History HEENT History: Reports: Impaired Vision Other HEENT History: blind right eye Cardiovascular History: Reports: Hypertension Respiratory History: Reports: None Gastrointestinal History: Reports: Gastritis, GERD, Hiatal Hernia, Other (See Below) Other Gastrointestinal History: h/o gastric ulcers, h/o hiatal hernia; gastroparesis Genitourinary History: Reports: Chronic Renal Insuffiency, Diabetic Nephropathy Musculoskeletal History: Reports: Amputation Neurological History: Reports: Neuropathy, Peripheral Other Neuro History: stroke Psychiatric History: Reports: Anxiety Endocrine/Metabolic History: Reports: Diabetes, Type I Other Endocrine/Metabolic History: brittle diabetic. 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 - Past Surgical History Head Surgeries/Procedures: Reports: None HEENT Surgical History: Reports: None Cardiovascular Surgical History: Reports: None Respiratory Surgical History: Reports: None GI Surgical History: Reports: None Male Surgical History: Reports: None Endocrine Surgical History: Reports: None Neurological Surgical History: Reports: None Musculoskeletal Surgical History: Reports: Other (See Below) Other Musculoskeletal Surgeries/Procedures:: right BKA Oncologic Surgical History: Reports: None Dermatological Surgical History: Reports: None Social & Family History - Family History Family Medical History: Noncontributory Cardiac: Reports: High Cholesterol, Hypertension OBGYN: Reports: Neurological: Reports: None Psychiatric: Reports: Anxiety - Tobacco Use Smoking Status *Q: Never Smoker Second Hand Smoke Exposure: No - Caffeine Use Caffeine Use: Reports: None Other Caffeine Use: daily Caffeine Use Comment: patient is uncooperated - Recreational Drug Use Recreational Drug Use: No - Living Situation & Occupation Living situation: Reports: Single Occupation: Employed (Currently unemployed.) ED ROS GENERAL - Review of Systems Review Of Systems: Unable To Obtain (see note) Reason Not Obtained: see note ED EXAM, GI/ABD - Physical Exam Exam: Not Obtained (see note) ED ABDOMINAL/GI PROCEDURES - Additional/Other Procedure(s) Procedure(s) (Free Text): PROCEDURE NOTE: Gastric Tube Placement Physician: Shukri Brown MD Indication: Gastric decompression and/or evacuation The patient was given Versed 2 mg IV push for anxiolysis. The nares were anesthetized with viscous lidocaine applied topically. After informed implied consent was obtained a gastric tube was passed gently via the nasopharynx. Placement confirmed via auscultation at the epigastrium. Chest x-ray confirmed placement Complications: None 6:15 PM Procedure Note: Physician placed IV Due to difficult or critical IV access situation I have placed an IV for treatment and circulatory access. Location: Is a second IV for appropriate access given the patient has Protonix drip. 18-gauge angiocatheter left forearm Complications: None PROCEDURE: Ultrasound guidance of needle placement Indication: Guidance of needle for procedure Performed and interpreted by myself Findings: 1. Targeted structure identified 2. Distance from the skin noted 3. Surrounding vascular and nerve structures noted Interpretation: Ultrasound guidance of needle to increase safety and accuracy of procedure. Signed by Shukri Brown M.D. EKG INTERPRETATION EKG Interpretation Comments: 12 lead EKG interpretation Obtained: February 12, 2020 at 2:28 PM Rhythm: Sinus tachycardia Rate: 109 [place]: Normal Intervals: Voltage criteria for LVH ST/T Segments: No acute ischemic changes Interpretation: Sinus tachycardia with voltage criteria for LVH Course - Vital Signs Last Recorded V/S: Last Vital Signs Temp 97 F 02/12/20 13:19 Pulse 107 H 02/12/20 17:39 Resp 16 02/12/20 17:39 BP 189/107 H 02/12/20 17:39 Pulse Ox 96 02/12/20 17:39 - Orders/Labs/Meds Orders: Active Orders 24 hr Category Date Time Status EKG 12 Lead [EKG Documentation Completion] [RC] STAT Care 02/12/20 14:20 Active Gastrointestinal Tube Mgmt [] ASDIRECTED Care 02/12/20 13:39 Active CULTURE BLOOD [] Stat Lab 02/12/20 13:30 Results CULTURE BLOOD [] Stat Lab 02/12/20 13:50 Ordered NG [Nasogastric Orogastric Tube Insertion] [OM.PC] Stat Oth 02/12/20 13:39 Ordered Labs: Laboratory Tests 02/12/20 02/12/20 02/12/20 Range/Units 13:29 13:30 13:30 WBC 11.46 H (4.0-11.0) K/uL RBC 5.72 (4.50-5.90) M/uL Hgb 12.2 L (13.0-17.0) g/dL Hct 38.6 (38.0-50.0) % MCV 67.5 L (80.0-98.0) fL MCH 21.3 L (27.0-32.0) pg MCHC 31.6 (31.0-37.0) g/dL RDW Std Deviation 38.6 (28.0-62.0) fl RDW Coeff of Dania 16 H (11.0-15.0) % Plt Count 434 H (150-400) K/uL MPV 10.80 (7.40-12.00) fL Neut % (Auto) 70.8 (48.0-80.0) % Lymph % (Auto) 22.1 (16.0-40.0) % [place] % (Auto) 5.4 (0.0-15.0) % Eos % (Auto) 1.3 (0.0-7.0) % Baso % (Auto) 0.4 (0.0-1.5) % Neut # (Auto) 8.1 H (1.4-5.7) K/uL Lymph # (Auto) 2.5 H (0.6-2.4) K/uL [place] # (Auto) 0.6 (0.0-0.8) K/uL Eos # (Auto) 0.2 (0.0-0.7) K/uL Baso # (Auto) 0.1 (0.0-0.1) K/uL Nucleated RBC % 0.2 /100WBC Nucleated RBCs # 0 K/uL INR 0.90 Lactate (0.20-2.00) mmol/L Sodium 140 (136-148) mmol/L Potassium 3.6 (3.5-5.1) mmol/L Chloride 104 (98-107) mmol/L Carbon Dioxide 26.3 (21.0-32.0) mmol/L BUN 30 H (7.0-18.0) mg/dL Creatinine 2.9 H (0.8-1.3) mg/dL Est Cr Clr Drug Dosing 35.05 mL/min Estimated GFR (MDRD) 30.5 ml/min Glucose 131 H (74-106) mg/dL Calcium 9.3 (8.5-10.1) mg/dL Total Bilirubin 0.1 L (0.2-1.0) mg/dL AST 25 (15-37) IU/L ALT 21 (14-63) IU/L Alkaline Phosphatase 123 H (46-116) U/L Total Protein 8.1 (6.4-8.2) g/dL Albumin 3.3 L (3.4-5.0) g/dL Globulin 4.8 H (2.6-4.0) g/dL Albumin/Globulin Ratio 0.7 L (0.9-1.6) Blood Type Antibody Screen 02/12/20 02/12/20 02/12/20 Range/Units 13:30 13:30 18:03 WBC (4.0-11.0) K/uL RBC (4.50-5.90) M/uL Hgb (13.0-17.0) g/dL Hct (38.0-50.0) % MCV (80.0-98.0) fL MCH (27.0-32.0) pg MCHC (31.0-37.0) g/dL RDW Std Deviation (28.0-62.0) fl RDW Coeff of Dania (11.0-15.0) % Plt Count (150-400) K/uL MPV (7.40-12.00) fL Neut % (Auto) (48.0-80.0) % Lymph % (Auto) (16.0-40.0) % [place] % (Auto) (0.0-15.0) % Eos % (Auto) (0.0-7.0) % Baso % (Auto) (0.0-1.5) % Neut # (Auto) (1.4-5.7) K/uL Lymph # (Auto) (0.6-2.4) K/uL [place] # (Auto) (0.0-0.8) K/uL Eos # (Auto) (0.0-0.7) K/uL Baso # (Auto) (0.0-0.1) K/uL Nucleated RBC % /100WBC Nucleated RBCs # K/uL INR Lactate 2.9 H* 0.8 (0.20-2.00) mmol/L Sodium (136-148) mmol/L Potassium (3.5-5.1) mmol/L Chloride (98-107) mmol/L Carbon Dioxide (21.0-32.0) mmol/L BUN (7.0-18.0) mg/dL Creatinine (0.8-1.3) mg/dL Est Cr Clr Drug Dosing mL/min Estimated GFR (MDRD) ml/min Glucose (74-106) mg/dL Calcium (8.5-10.1) mg/dL Total Bilirubin (0.2-1.0) mg/dL AST (15-37) IU/L ALT (14-63) IU/L Alkaline Phosphatase (46-116) U/L Total Protein (6.4-8.2) g/dL Albumin (3.4-5.0) g/dL Globulin (2.6-4.0) g/dL Albumin/Globulin Ratio (0.9-1.6) Blood Type O POSITIVE Antibody Screen NEGATIVE Meds: Medications Discontinued Medications Generic Name Dose Route Start Last Admin Trade Name Freq PRN Reason Stop Dose Admin Haloperidol Lactate 5 mg 02/12/20 13:24 02/12/20 13:28 Haldol IM 02/12/20 13:25 5 mg ONETIME ONE Administration Haloperidol Lactate 5 mg 02/12/20 17:14 02/12/20 17:36 Haldol IM 02/12/20 17:15 5 mg ONETIME ONE Administration Pantoprazole Sodium 80 mg/ 20 mls @ 420 mls/hr 02/12/20 13:37 02/12/20 14:30 Sodium Chloride IVPUSH 02/12/20 13:39 Not Given ONETIME ONE Pantoprazole Sodium 80 mg/ 20 mls @ 420 mls/hr 02/12/20 13:38 02/12/20 14:29 Sodium Chloride IV 02/12/20 13:39 420 mls/hr ONETIME ONE Administration Ceftriaxone Sodium/Dextrose 2 50 mls @ 100 mls/hr 02/12/20 14:19 02/12/20 14: 30 gm/ Premix IV 02/12/20 14:48 100 mls/hr ONETIME ONE Administration Lidocaine HCl 1 ml 02/12/20 13:26 02/12/20 13:29 Xylocaine 2% Jelly MUCMEM 02/12/20 13:27 1 dose STAT STA Administration Lorazepam 2 mg 02/12/20 17:24 02/12/20 17:38 Ativan IVPUSH 02/12/20 17:25 2 mg ONETIME ONE Administration Midazolam HCl 2 mg 02/12/20 13:40 02/12/20 13:50 Versed 1 Mg/Ml IVPUSH 02/12/20 13:41 2 mg ONETIME ONE Administration - Re-Assessments/Exams Free Text/Narrative Re-Assessment/Exam: 02/12/20 14:30 When the patient arrived he was quite uncomfortable and had persistent retching. Given his thrashing about and inability to adequately care for him he was given 5 mg of Haldol. Intramuscularly. This helped his agitation and calmed him also help control his nausea and vomiting. At this point the patient is now resting comfortably. He has received his medications and we obtain a CT scan now that he is more stabilized. Pending review of his chest x-ray for NG tube placement. Departure - Departure Time of Disposition: 18:17 Disposition: DC/Tfer to Other 70 Clinical Impression: Acute kidney injury superimposed on CKD, Dehydration, Lactic acid acidosis, Lactic acid blood increased GI bleed Qualifiers: GI bleed type/associated pathology: unspecified gastrointestinal hemorrhage type Qualified Code(s): K92.2 - Gastrointestinal hemorrhage, unspecified - Discharge Information Referrals: PCP,None [Primary Care Provider] - Forms: ED Department Discharge Critical Care Note - Critical Care Note Total Time (mins): 77 (minutes) Comments: Critical Care Note: The patient presented in critical status due to acute GI bleed requiring intravenous Protonix and Protonix drip The patient required rapid exam, decision making, and frequent re-evaluations during their time in the Emergency Department. Total Critical Care time exclusive of all other billable procedure time provided by myself 77 minutes Procedure Note: Physician placed IV Due to difficult or critical IV access situation I have placed an IV for treatment and circulatory access. Location: Right antecubital fossa, 20-gauge angiocatheter Complications: None PROCEDURE: Ultrasound guidance of needle placement Indication: Guidance of needle for procedure Performed and interpreted by myself Findings: 1. Targeted structure identified 2. Distance from the skin noted 3. Surrounding vascular and nerve structures noted Interpretation: Ultrasound guidance of needle to increase safety and accuracy of procedure. Signed by Shukri Brown M.D. Sepsis Event Note - Evaluation Sepsis Screening Result: No Definite Risk - Focused Exam Vital Signs: Vital Signs Temp Pulse Resp BP Pulse Ox 02/12/20 17:39 107 H 16 189/107 H 96 02/12/20 14:31 104 H 16 130/98 H 96 02/12/20 13:19 97 F 131 H 22 H 222/150 H 97 Date Exam was Performed: 02/12/20 Time Exam was Performed: 18:16 - My Orders Last 24 Hours: My Active Orders 02/12/20 13:30 CULTURE BLOOD [BC] Stat 02/12/20 13:39 Gastrointestinal Tube Mgmt [RC] ASDIRECTED NG [Nasogastric Orogastric Tube Insertion] [OM.PC] Stat 02/12/20 14:20 EKG 12 Lead [EKG Documentation Completion] [RC] STAT - Assessment/Plan Last 24 Hours: My Active Orders 02/12/20 13:30 CULTURE BLOOD [BC] Stat 02/12/20 13:39 Gastrointestinal Tube Mgmt [RC] ASDIRECTED NG [Nasogastric Orogastric Tube Insertion] [OM.PC] Stat 02/12/20 14:20 EKG 12 Lead [EKG Documentation Completion] [RC] STAT
[2020-02-12] MEDS ORDERED: cefTRIAXone 2 GM in Premix Bag 1 BAG IV ONE (14:19)
--- NOTE | 2020-02-12 15:06 | CR ---
INDICATION: NG placement HISTORY: Line placement. COMPARISON: 12/30/2019. TECHNIQUE: Chest, 2 portable views. FINDINGS: The lungs are clear. The heart size and pulmonary vasculature are within normal limits. Lateral costophrenic sulci are sharp. First image demonstrates the NG tube, with its tip at the EG junction. Second image demonstrates the NG tube, with its tip collimated off the field of view, likely in the stomach. Bowel gas pattern in the upper abdomen is normal. IMPRESSION: On the 2nd image, the tip of the NG tube is collimated off the field of view, but likely in the stomach. Dictated by Meliton Cho MD @ 02/12/2020 3:05:56 PM Dictated by: Meliton Cho MD @ 02/12/2020 15:06:01 (Electronically Signed)
--- NOTE | 2020-02-12 16:34 | CT ---
INDICATION: GI bleed with abdominal pain. TECHNIQUE: CT abdomen and pelvis performed without oral or IV contrast. COMPARISON: CT 11/21/2019. FINDINGS: [id number] degenerative arthritis both hips. Small sclerotic lesion in the right posterior acetabulum. The other small sclerotic lesions in the skeleton are stable. These sclerotic lesions are indeterminate. Partial visualization of right-sided gynecomastia. Small amount of pericardial fluid has increased. New NG tube with tip in distal stomach. Wall of the distal esophagus appears circumferentially thickened to mild degree and this was present previously. Cortical thinning and scarring in the left kidney. Small cyst left kidney. Small uncalcified nodule in the left lower lobe was not included on the prior study not measures 3-4 mm. Hazy opacity and slight nodularity in the posterior lateral left lower lobe could be related to mild inflammation or atelectasis and was vaguely present previously. Similar mild opacity in the right lower lobe posteriorly and laterally is new and likely related to atelectasis or minimal inflammation. Small nodule along the right major fissure on 6 was not included on the prior study. These nodules are likely benign. Increased number of small to mildly prominent stable bilateral inguinal lymph nodes are likely inflammatory or reactive. Increased number of small to upper limits of normal left periaortic abdominal retroperitoneal lymph nodes likely benign and are slightly more prominent. Moderate amounts of stool in the colon consistent some degree of constipation. The appendix is normal. Bladder wall is mildly prominent despite being distended. Remainder negative. IMPRESSION: 1. Circumferential wall prominence involving the distal esophagus nonspecific. 2. New NG tube. 3. No acute disease in abdomen or pelvis. 4. Few small uncalcified nodules in the mid and lower lungs were not included on November 2019 CT and are nonspecific but likely benign. Followup CT in 6 months could be done to ensure these remain stable. 5. Constipation. 6. Few scattered small stable indeterminate sclerotic skeletal lesions. Please note that all CT scans at this facility use dose modulation, iterative reconstruction, and/or weight-based dosing when appropriate to reduce radiation dose to as low as reasonably achievable. Dictated by Conor Lu MD @ Feb 12 2020 4:30PM Signed by Dr. Conor Lu @ Feb 12 2020 4:33PM
[2020-02-12] MEDS ORDERED: LORazepam 2 MG/ML SDV IVPUSH ONE ×2 (17:24→18:26)
[2020-02-12] MEDS ORDERED: LORazepam 2 MG/ML SDV ONE (18:26)
[2020-02-12 19:50] VITALS: BP 191/136; PULSE 105
== END 2020-02-12 18:05 | disposition other institution (70) ==
LOC: MW.ED 13:08
DX: K92.2 Gastrointestinal hemorrhage, unspecified (principal); E86.0 Dehydration; I12.9 Hypertensive chronic kidney disease with stage 1 through stage 4 chronic kidney disease, or unspecified chronic kidney disease; E10.22 Type 1 diabetes mellitus with diabetic chronic kidney disease; E10.10 Type 1 diabetes mellitus with ketoacidosis without coma; N18.9 Chronic kidney disease, unspecified; K21.9 Gastro-esophageal reflux disease without esophagitis; F41.9 Anxiety disorder, unspecified; E10.42 Type 1 diabetes mellitus with diabetic polyneuropathy; E10.621 Type 1 diabetes mellitus with foot ulcer; Z88.0 Allergy status to penicillin; Z91.013 Allergy to seafood; Z88.6 Allergy status to analgesic agent; Z91.048 Other nonmedicinal substance allergy status; Z79.82 Long term (current) use of aspirin; Z79.4 Long term (current) use of insulin; Z79.899 Other long term (current) drug therapy
CPT/HCPCS: 36415; 43752; 71045; 74176; 80053; 83605; 85025; 85610; 86850; 86900; 86901; 87040; 93005; 96365; 96372; 96375; 99285; C9113; J0696; J1630; J2060; J2250; 99291; 99292

== ENCOUNTER 2020-02-15 13:17 | Emergency (ER) | payer MEDICAID ==
[2020-02-15] MEDS ORDERED: Haloperidol Lactate 5 MG/ML SDV IM ONE (13:34)
--- NOTE | 2020-02-15 13:41 | EDM.PDOC ---
ED HPI GENERAL MEDICAL PROBLEM - General Chief Complaint: Gastrointestinal Problem Stated Complaint: VOMITING BLOOD/ABDOMINAL PAIN Time Seen by Provider: 02/15/20 13:33 - History of Present Illness INITIAL COMMENTS - FREE TEXT/NARRATIVE: HISTORY AND PHYSICAL: History of present illness: This 34-year-old male with a past medical history that includes gastroparesis, GI bleed, and hyperemesis syndrome presents to the emergency department vomiting and concerned that he may have blood. He recently was sent to [facility] at [place] by myself. He had a work-up there and was thought to be good for discharge. They did not find that the patient had a downtrending H&H or other problems. He returns today with symptoms. He denies fever. No urinary symptoms. No abdominal focal tenderness. Review of systems: A 10-point review of systems, other than pertinent positives and negatives as stated per HPI, is otherwise negative. Past medical history: As per history of present illness and as reviewed below otherwise noncontributory. Surgical history: As per history of present illness and as reviewed below otherwise noncontributory. Social history: No reported history of drug or alcohol abuse. Family history: As per history of present illness and as reviewed below otherwise noncontributory. Physical exam: VITAL SIGNS: Reviewed. GENERAL: Looks miserable and is holding his vomit bag. HEAD: [No signs of head trauma.] EYES: [Pupils are equal. Extraocular motions intact.] EARS: [Hearing grossly intact.] MOUTH: [Oropharynx is normal.] NECK: [No adenopathy, no JVD.] CHEST: [Chest with clear breath sounds bilaterally. No wheezes, rales, or rhonchi.] CARDIAC: [Regular rate and rhythm. Normal S1 and S2, without murmurs, gallops , or rubs.] VASCULAR: [Peripheral pulses normal and equal in all extremities.] ABDOMEN: [Soft, without detectable tenderness. No sign of distention. No rebound or guarding, and no masses palpated.] MUSCULOSKELETAL: [Good range of motion of all major joints. Extremities without clubbing, cyanosis or edema.] NEUROLOGIC EXAM: [Alert and oriented x 3.] [No focal sensory or motor deficits. ] [ Speech normal.] [ Follows commands.] PSYCHIATRIC: [Mood normal.] SKIN: [No rash or lesions.] Initial Differential Diagnosis & Plan: Gastritis, hyperemesis syndrome, GI bleed CBC, complete metabolic panel, intramuscular Haldol. Definitive disposition and diagnosis as appropriate pending reevaluation and review of above. Chest Pain Score (Numeric/FACES): 8 - Related Data Allergies Allergy/AdvReac Type Severity Reaction Status Date / Time shrimp Allergy Severe Swelling Verified 02/15/20 13:55 iodine Allergy Unknown Anaphylactic Verified 02/15/20 13:55 Shock Penicillins Allergy Unknown Anaphylactic Verified 02/15/20 13:55 Shock shellfish derived Allergy Anaphylactic Verified 02/15/20 13:55 Shock gluten Allergy Unknown Muscle Uncoded 02/15/20 13:55 Aches Home Meds: Home Meds Doxazosin [Cardura] 2 mg PO BEDTIME 09/29/19 [History] Metoprolol Succinate 200 mg PO DAILY 09/29/19 [History] Torsemide 20 mg PO DAILY 09/29/19 [History] atorvaSTATin [Lipitor] 80 mg PO BEDTIME 09/29/19 [History] Insulin Aspart [NovoLOG] 0 unit SUBCUT .UP TO 60 UN DAILY 09/30/19 [History] Metoclopramide [Reglan] 5 mg PO TIDAC #90 tablet 10/10/19 [Rx] Pantoprazole [ProTONIX] 40 mg PO DAILY #30 tab.cr 10/10/19 [Rx] Ondansetron [Zofran ODT] 4 mg PO Q6H PRN #20 tab.dis 12/04/19 [Rx] Aspirin [Adult Low Dose Aspirin EC] 81 mg PO DAILY 12/07/19 [History] Enalapril Maleate 40 mg PO DAILY 12/07/19 [History] Insulin Glarg,Human.Rec.Analog [Lantus] 50 mg SUBCUT BEDTIME 12/07/19 [History] Iron Ag,Ps/C/Fa6/B12/Zn/SA/Sto [Niferex Tablet] 150 mg PO BID 12/07/19 [History] Sertraline [Zoloft] 50 mg PO DAILY 12/07/19 [History] Spironolactone [Aldactone] 25 mg PO BID 12/07/19 [History] Sucralfate 1 gm PO QIDACANDBED 12/07/19 [History] amLODIPine Besylate [Amlodipine Besylate] 10 mg PO DAILY 12/07/19 [History] hydrALAZINE [Apresoline] 25 mg PO TID 12/07/19 [History] hydroCHLOROthiazide [Hydrochlorothiazide] 25 mg PO DAILY 12/07/19 [History] Omeprazole Magnesium [Prilosec Otc] 20 mg PO BID #30 tablet. 12/30/19 [Rx] haloperidoL [Haldol] 5 mg PO Q12HR #60 tab 02/15/20 [Rx] Past Medical History - Past Health History Medical/Surgical History: Denies Medical/Surgical History HEENT History: Reports: Impaired Vision Other HEENT History: blind right eye Cardiovascular History: Reports: Hypertension Respiratory History: Reports: None Gastrointestinal History: Reports: Gastritis, GERD, Hiatal Hernia, Other (See Below) Other Gastrointestinal History: h/o gastric ulcers, h/o hiatal hernia; gastroparesis Genitourinary History: Reports: Chronic Renal Insuffiency, Diabetic Nephropathy Musculoskeletal History: Reports: Amputation Neurological History: Reports: Neuropathy, Peripheral Other Neuro History: stroke Psychiatric History: Reports: Anxiety Endocrine/Metabolic History: Reports: Diabetes, Type I Other Endocrine/Metabolic History: brittle diabetic. History of hyperkalemia and DKA Insulin Pump Model and Slot Shift Manager: None Hematologic History: Reports: Anemia Immunologic History: Reports: None Oncologic (Cancer) History: Reports: None Dermatologic History: Reports: Other (See Below) Other Dermatologic History: diabetic foot ulcers - Infectious Disease History Infectious Disease History: Reports: None Other Infectious Disease History: 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 - Past Surgical History Head Surgeries/Procedures: Reports: None HEENT Surgical History: Reports: None Cardiovascular Surgical History: Reports: None Respiratory Surgical History: Reports: None GI Surgical History: Reports: None Male Surgical History: Reports: None Endocrine Surgical History: Reports: None Neurological Surgical History: Reports: None Musculoskeletal Surgical History: Reports: Other (See Below) Other Musculoskeletal Surgeries/Procedures:: right BKA Oncologic Surgical History: Reports: None Dermatological Surgical History: Reports: None Social & Family History - Family History Family Medical History: Noncontributory Cardiac: Reports: High Cholesterol, Hypertension OBGYN: Reports: Neurological: Reports: None Psychiatric: Reports: Anxiety - Caffeine Use Caffeine Use: Reports: None Other Caffeine Use: daily Caffeine Use Comment: patient is uncooperated - Living Situation & Occupation Living situation: Reports: Single Occupation: Employed (Currently unemployed.) ED ROS GENERAL - Review of Systems Review Of Systems: See Below (noted) ED EXAM, GI/ABD - Physical Exam Exam: See Below (noted) Course - Vital Signs Last Recorded V/S: Last Vital Signs Temp 96.5 F L 02/15/20 13:53 Pulse 102 H 02/15/20 13:53 Resp 18 02/15/20 13:53 BP 193/117 H 02/15/20 13:53 Pulse Ox 95 02/15/20 13:53 - Orders/Labs/Meds Orders: Active Orders 24 hr Category Date Time Status Insulin Regular, Human [NovoLIN R] Med 02/15/20 15:04 Once 10 unit SUBCUT ONETIME ONE Medication Orders Insulin Human Regular (Novolin R) 10 unit SUBCUT ONETIME ONE; Protocol Stop: 02/15/20 15:05 Labs: Laboratory Tests 02/15/20 02/15/20 Range/Units 14:13 14:13 WBC 10.17 (4.0-11.0) K/uL RBC 4.71 (4.50-5.90) M/uL Hgb 9.9 L (13.0-17.0) g/dL Hct 31.9 L (38.0-50.0) % MCV 67.7 L (80.0-98.0) fL MCH 21.0 L (27.0-32.0) pg MCHC 31.0 (31.0-37.0) g/dL RDW Std Deviation 38.4 (28.0-62.0) fl RDW Coeff of Dania 16 H (11.0-15.0) % Plt Count 326 (150-400) K/uL MPV 10.40 (7.40-12.00) fL Neut % (Auto) 73.9 (48.0-80.0) % Lymph % (Auto) 18.0 (16.0-40.0) % [place] % (Auto) 4.8 (0.0-15.0) % Eos % (Auto) 2.8 (0.0-7.0) % Baso % (Auto) 0.5 (0.0-1.5) % Neut # (Auto) 7.5 H (1.4-5.7) K/uL Lymph # (Auto) 1.8 (0.6-2.4) K/uL [place] # (Auto) 0.5 (0.0-0.8) K/uL Eos # (Auto) 0.3 (0.0-0.7) K/uL Baso # (Auto) 0.1 (0.0-0.1) K/uL Nucleated RBC % 0.0 /100WBC Nucleated RBCs # 0 K/uL Sodium 136 (136-148) mmol/L Potassium 5.2 H (3.5-5.1) mmol/L Chloride 99 (98-107) mmol/L Carbon Dioxide 23.6 (21.0-32.0) mmol/L BUN 31 H (7.0-18.0) mg/dL Creatinine 3.3 H (0.8-1.3) mg/dL Est Cr Clr Drug Dosing 30.80 mL/min Estimated GFR (MDRD) 26.3 ml/min Glucose 514 H* (74-106) mg/dL Calcium 8.5 (8.5-10.1) mg/dL Meds: Medications Generic Name Dose Route Start Last Admin Trade Name Freq PRN Reason Stop Dose Admin Insulin Human Regular 10 unit 02/15/20 15:04 Novolin R SUBCUT 02/15/20 15:05 ONETIME ONE Protocol Discontinued Medications Generic Name Dose Route Start Last Admin Trade Name Freq PRN Reason Stop Dose Admin Haloperidol Lactate 10 mg 02/15/20 13:34 02/15/20 13:58 Haldol IM 02/15/20 13:35 10 mg ONETIME ONE Administration - Re-Assessments/Exams Free Text/Narrative Re-Assessment/Exam: 02/15/20 15:05 Doing much better after Haldol injection. We will treat his elevated blood sugar with insulin 10 units subcu. This will be regular human insulin. Patient is mildly dehydrated. Now that he can tolerate oral intake we will discharge him home. I will give him some Phenergan suppositories. I will also prescribe him some p.o. Haldol as this seems to work well for him. My diagnostic impression: 1. Hyperemesis syndrome 2. History of gastroparesis 3. Diabetes mellitus type 2 uncontrolled with elevated blood sugar/ hyperglycemia 4. Dehydration Departure - Departure Time of Disposition: 15:06 Disposition: Home, Self-Care Clinical Impression: Diabetes mellitus type 2, uncontrolled, Chronic kidney disease (CKD), Dehydration Nausea and vomiting Qualifiers: Vomiting type: unspecified Vomiting Intractability: non-intractable Qualified Code(s): R11.2 - Nausea with vomiting, unspecified - Discharge Information *PRESCRIPTION DRUG MONITORING PROGRAM REVIEWED*: Not Applicable *COPY OF PRESCRIPTION DRUG MONITORING REPORT IN PATIENT IVELISSE: Not Applicable Instructions: Type 2 Diabetes Mellitus, Diagnosis, Adult, Rehydration, Adult Referrals: Fitz Infante MD [Primary Care Provider] - Forms: ED Department Discharge Additional Instructions: The following information is given to patients seen in the emergency department who are being discharged to home. This information is to outline your options for follow-up care. We provide all patients seen in our emergency department with a follow-up referral. The need for follow-up, as well as the timing and circumstances, are variable depending upon the specifics of your emergency department visit. If you don't have a primary care physician on staff, we will provide you with a referral. We always advise you to contact your personal physician following an emergency department visit to inform them of the circumstance of the visit and for follow-up with them and/or the need for any referrals to a consulting specialist. The emergency department will also refer you to a specialist when appropriate. This referral assures that you have the opportunity for follow-up care with a specialist. All of these measure are taken in an effort to provide you with optimal care, which includes your follow-up. Under all circumstances we always encourage you to contact your private physician who remains a resource for coordinating your care. When calling for follow-up care, please make the office aware that this follow-up is from your recent emergency room visit. If for any reason you are refused follow-up, please contact the [facility] Department at and asked to speak to the emergency department charge nurse. Thank you for coming to [facility] emergency department for your care today. Please use the Phenergan suppositories to help with your nausea and vomiting. Return to the emergency department for worsening. Please take your insulin as prescribed. Please see your doctor for follow-up. We will prescribe you Haldol because this seems to work well for you when you were here. Sepsis Event Note - Focused Exam Vital Signs: Vital Signs Temp Pulse Resp BP Pulse Ox 02/15/20 13:53 96.5 F L 102 H 18 193/117 H 95 Date Exam was Performed: 02/15/20 Time Exam was Performed: 15:05 - My Orders Last 24 Hours: My Active Orders 02/15/20 15:04 Insulin Regular, Human [NovoLIN R] 10 unit SUBCUT ONETIME ONE - Assessment/Plan Last 24 Hours: My Active Orders 02/15/20 15:04 Insulin Regular, Human [NovoLIN R] 10 unit SUBCUT ONETIME ONE
[2020-02-15 13:55] VITALS: BP 193/117; PULSE 102
[2020-02-15 14:47] LABS: CARBON DIOXIDE,CO2 23.6 mmol/L (21.0-32.0); POTASSIUM,K 5.2 mmol/L (3.5-5.1)
[2020-02-15] MEDS ORDERED: Insulin Regular, Human 100 Units/ML 10 ML Vial SUBCUT ONE (15:04)
[2020-02-15] MEDS ORDERED: Diazepam 2 MG Tab PO ONE (15:43)
== END 2020-02-15 15:48 | disposition home or self-care (01) ==
LOC: MW.ED 13:17
DX: E11.65 Type 2 diabetes mellitus with hyperglycemia (principal); I12.9 Hypertensive chronic kidney disease with stage 1 through stage 4 chronic kidney disease, or unspecified chronic kidney disease; E11.22 Type 2 diabetes mellitus with diabetic chronic kidney disease; N18.9 Chronic kidney disease, unspecified; E11.21 Type 2 diabetes mellitus with diabetic nephropathy; E86.0 Dehydration; E11.43 Type 2 diabetes mellitus with diabetic autonomic (poly)neuropathy; K31.84 Gastroparesis; K21.9 Gastro-esophageal reflux disease without esophagitis; E11.42 Type 2 diabetes mellitus with diabetic polyneuropathy; R11.2 Nausea with vomiting, unspecified; Z91.013 Allergy to seafood; Z91.09 Other allergy status, other than to drugs and biological substances; Z88.0 Allergy status to penicillin; Z91.048 Other nonmedicinal substance allergy status; Z79.82 Long term (current) use of aspirin; Z79.899 Other long term (current) drug therapy
CPT/HCPCS: 36415; 80048; 82962; 85025; 96372; 99284; J1630; 99283; J1815-GY

== ENCOUNTER 2020-02-15 19:11 | Emergency (ER) | payer MEDICAID ==
[2020-02-15] MEDS ORDERED: Sodium Chloride 0.9% 10 ML Syringe FLUSH PRN (19:22)
[2020-02-15] MEDS ORDERED: Sodium Chloride 0.9% 2.5 ML Syringe FLUSH PRN (19:22)
[2020-02-15] MEDS ORDERED: Sodium Chloride 0.9% 10 ML SDV IV PRN (19:22)
[2020-02-15] MEDS ORDERED: Alum Hydrox/Mag Hydrox/Simeth 15 ML, Metoclopramide 5 MG, Lidocaine 2% 5 ML PO ONE ×3 (19:47)
[2020-02-15] MEDS ORDERED: Ondansetron 4 MG/2 ML SDV IVPUSH ONE (19:47)
[2020-02-15] MEDS ORDERED: Haloperidol Lactate 5 MG/ML SDV IM ONE (19:51)
--- NOTE | 2020-02-15 20:02 | EDM.PDOC ---
ED HPI GENERAL MEDICAL PROBLEM - General Chief Complaint: Gastrointestinal Problem Stated Complaint: vomiting Time Seen by Provider: 02/15/20 19:15 Source of Information: Reports: Patient History Limitations: Reports: No Limitations - History of Present Illness INITIAL COMMENTS - FREE TEXT/NARRATIVE: 34-year-old male with past medical history of type I diabetes mellitus, cyclical vomiting syndrome, chronic abdominal pain, chronic renal insufficiency status post BKA, CVA, hypertension presenting with complaints of abdominal pain and hematemesis. Seen earlier this afternoon in our emergency department for identical complaints by Dr. Brown. Recently transferred to [facility] for hematemesis, he states that he did not undergo EGD but was discharged home after a few days. Earlier this afternoon, the patient was treated with haloperidol, IV fluids, and subcutaneous insulin. His blood sugar was initially above 500 mg/dL but improved with insulin. He was discharged home with antiemetic medications including p.o. haloperidol and Phenergan suppositories. This evening, he presents back to the emergency department complaining of 3-4 episodes of maroon-colored emesis along with epigastric pain. He states that the epigastric pain is "burning" and radiates up into the chest. Denies any bloody stools, fever, hemoptysis, gingival bleeding, hematuria. Did not take any of his medications prior to coming back to the emergency department. Abdomen Pain Score (Numeric/FACES): 9 - Related Data Allergies Allergy/AdvReac Type Severity Reaction Status Date / Time shrimp Allergy Severe Swelling Verified 02/15/20 19:20 iodine Allergy Unknown Anaphylactic Verified 02/15/20 19:20 Shock Penicillins Allergy Unknown Anaphylactic Verified 02/15/20 19:20 Shock shellfish derived Allergy Anaphylactic Verified 02/15/20 19:20 Shock gluten Allergy Unknown Muscle Uncoded 02/15/20 19:20 Aches Home Meds: Home Meds Doxazosin [Cardura] 2 mg PO BEDTIME 09/29/19 [History] Metoprolol Succinate 200 mg PO DAILY 09/29/19 [History] Torsemide 20 mg PO DAILY 09/29/19 [History] atorvaSTATin [Lipitor] 80 mg PO BEDTIME 09/29/19 [History] Insulin Aspart [NovoLOG] 0 unit SUBCUT .UP TO 60 UN DAILY 09/30/19 [History] Metoclopramide [Reglan] 5 mg PO TIDAC #90 tablet 10/10/19 [Rx] Pantoprazole [ProTONIX] 40 mg PO DAILY #30 tab.cr 10/10/19 [Rx] Ondansetron [Zofran ODT] 4 mg PO Q6H PRN #20 tab.dis 12/04/19 [Rx] Aspirin [Adult Low Dose Aspirin EC] 81 mg PO DAILY 12/07/19 [History] Enalapril Maleate 40 mg PO DAILY 12/07/19 [History] Insulin Glarg,Human.Rec.Analog [Lantus] 50 mg SUBCUT BEDTIME 12/07/19 [History] Iron Ag,Ps/C/Fa6/B12/Zn/SA/Sto [Niferex Tablet] 150 mg PO BID 12/07/19 [History] Sertraline [Zoloft] 50 mg PO DAILY 12/07/19 [History] Spironolactone [Aldactone] 25 mg PO BID 12/07/19 [History] Sucralfate 1 gm PO QIDACANDBED 12/07/19 [History] amLODIPine Besylate [Amlodipine Besylate] 10 mg PO DAILY 12/07/19 [History] hydrALAZINE [Apresoline] 25 mg PO TID 12/07/19 [History] hydroCHLOROthiazide [Hydrochlorothiazide] 25 mg PO DAILY 12/07/19 [History] Omeprazole Magnesium [Prilosec Otc] 20 mg PO BID #30 tablet. 12/30/19 [Rx] haloperidoL [Haldol] 5 mg PO Q12HR #60 tab 02/15/20 [Rx] Past Medical History - Past Health History Medical/Surgical History: Denies Medical/Surgical History HEENT History: Reports: Impaired Vision Other HEENT History: blind right eye Cardiovascular History: Reports: Hypertension Respiratory History: Reports: None Gastrointestinal History: Reports: Gastritis, GERD, Hiatal Hernia, Other (See Below) Other Gastrointestinal History: h/o gastric ulcers, h/o hiatal hernia; gastroparesis Genitourinary History: Reports: Chronic Renal Insuffiency, Diabetic Nephropathy Musculoskeletal History: Reports: Amputation Neurological History: Reports: Neuropathy, Peripheral Other Neuro History: stroke Psychiatric History: Reports: Anxiety Endocrine/Metabolic History: Reports: Diabetes, Type I Other Endocrine/Metabolic History: brittle diabetic. History of hyperkalemia and DKA Insulin Pump Model and [employer]: None Hematologic History: Reports: Anemia Immunologic History: Reports: None Oncologic (Cancer) History: Reports: None Dermatologic History: Reports: Other (See Below) Other Dermatologic History: diabetic foot ulcers - Infectious Disease History Infectious Disease History: Reports: None Other Infectious Disease History: 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 - Past Surgical History Head Surgeries/Procedures: Reports: None HEENT Surgical History: Reports: None Cardiovascular Surgical History: Reports: None Respiratory Surgical History: Reports: None GI Surgical History: Reports: None Male Surgical History: Reports: None Endocrine Surgical History: Reports: None Neurological Surgical History: Reports: None Musculoskeletal Surgical History: Reports: Other (See Below) Other Musculoskeletal Surgeries/Procedures:: right BKA Oncologic Surgical History: Reports: None Dermatological Surgical History: Reports: None Social & Family History - Family History Family Medical History: Noncontributory Cardiac: Reports: High Cholesterol, Hypertension OBGYN: Reports: Neurological: Reports: None Psychiatric: Reports: Anxiety - Caffeine Use Caffeine Use: Reports: None Other Caffeine Use: daily Caffeine Use Comment: patient is uncooperated - Living Situation & Occupation Living situation: Reports: Single Occupation: Employed (Currently unemployed.) ED ROS GENERAL - Review of Systems Review Of Systems: See Below Constitutional: Denies: Fever, Chills HEENT: Reports: No Symptoms Respiratory: Denies: Shortness of Breath Cardiovascular: Denies: Chest Pain Endocrine: Reports: No Symptoms GI/Abdominal: Reports: Abdominal Pain, Hematemesis, Nausea, Vomiting. Denies: Bloody Stool, Hematochezia, Melena : Denies: Hematuria Musculoskeletal: Denies: Back Pain Skin: Denies: Rash Neurological: Denies: Headache Psychiatric: Reports: No Symptoms Hematologic/Lymphatic: Reports: No Symptoms Immunologic: Reports: No Symptoms ED EXAM, GI/ABD - Physical Exam Exam: See Below Text/Narrative:: Vital signs reviewed. Nursing notes reviewed. Constitutional: Awake, alert, non-distressed. Head: Normocephalic, atraumatic. Eyes: EOMI, conjunctiva normal, no discharge, no scleral icterus. Ears, Nose, Throat: External ears and ears normal, moist oral mucosa. Cardiovascular: Tachycardic, 2+ radial pulse, capillary refill less than 2 seconds. Pulmonary: normal work of breathing, no accessory muscle use. Abdomen/GI: Soft, nontender, nondistended, no guarding or rigidity, no masses. Musculoskeletal: No deformities. Integumentary: Appropriate color for ethnicity, warm, dry, no pallor or jaundice , no rash. Neurologic: Alert, answering questions appropriately, normal speech, no facial droop, moving all extremities well. Psychiatric: Appropriate mood and affect, normal thought process. Course - Vital Signs Text/Narrative:: Patient was initially hypertensive on arrival, but heart rate improved on its own. Resting tachycardia to low 100s. Patient is well-appearing, looks nontoxic. Differential diagnosis includes but is not limited to: Gastritis, peptic ulcer disease, Shannon-Bowen tear, esophageal varices, gastric varices, coagulopathy, colitis, electrolyte disturbance, acute coronary syndrome, pancreatitis, GERD, and many others CBC shows a microcytic anemia, but hemoglobin is improved from earlier today. INR is normal. Lactate is normal. Metabolic panel shows a creatinine 3.1, glucose of 228. Normal LFTs. Negative troponin. Negative lipase. Chest x- rays appear unremarkable. Treated symptomatically with IV Protonix, IV Reglan, lactated Ringer's bolus, IV haloperidol, GI cocktail, and IV fentanyl. I did witness coffee-ground emesis at the bedside. Given that we have no GI capabilities at our facility, we will plan to transfer the patient to in [facility]. Patient needs consideration of undergoing repeat EGD. I spoke with the accepting hospitalist Dr. Ananda Mackey who agrees to admit the patient to the service. He was transferred to the ground EMS crew in good condition. Last Recorded V/S: Last Vital Signs Temp 36.6 C 02/15/20 21:40 Pulse 106 H 02/15/20 21:40 Resp 20 02/15/20 21:40 BP 211/130 H 02/15/20 21:40 Pulse Ox 96 02/15/20 21:40 - Orders/Labs/Meds Orders: Active Orders 24 hr Category Date Time Status Blood Glucose Check, Bedside [RC] ONETIME Care 02/15/20 19:22 Active EKG 12 Lead [EKG Documentation Completion] [RC] STAT Care 02/15/20 19:24 Active Sodium Chloride 0.9% [Normal Saline] Med 02/15/20 19:22 Active 10 ml IV ASDIRECTED PRN Sodium Chloride 0.9% [Saline Flush] Med 02/15/20 19:22 Active 10 ml FLUSH ASDIRECTED PRN Sodium Chloride 0.9% [Saline Flush] Med 02/15/20 19:22 Active 2.5 ml FLUSH ASDIRECTED PRN Peripheral IV Insertion Adult [OM.PC] Stat Oth 02/15/20 19:22 Ordered Medication Orders Sodium Chloride (Saline Flush) 10 ml FLUSH ASDIRECTED PRN PRN Reason: Keep Vein Open Sodium Chloride (Saline Flush) 2.5 ml FLUSH ASDIRECTED PRN PRN Reason: Keep Vein Open Sodium Chloride (Normal Saline) 10 ml IV ASDIRECTED PRN PRN Reason: IV Use Labs: Laboratory Tests 02/15/20 02/15/20 02/15/20 Range/Units 19:44 19:44 19:44 WBC 12.17 H (4.0-11.0) K/uL RBC 4.87 (4.50-5.90) M/uL Hgb 10.3 L (13.0-17.0) g/dL Hct 32.7 L (38.0-50.0) % MCV 67.1 L (80.0-98.0) fL MCH 21.1 L (27.0-32.0) pg MCHC 31.5 (31.0-37.0) g/dL RDW Std Deviation 37.5 (28.0-62.0) fl RDW Coeff of Dania 15 (11.0-15.0) % Plt Count 341 (150-400) K/uL MPV 10.20 (7.40-12.00) fL Neut % (Auto) 86.2 H (48.0-80.0) % Lymph % (Auto) 10.7 L (16.0-40.0) % Reagan % (Auto) 2.7 (0.0-15.0) % Eos % (Auto) 0.2 (0.0-7.0) % Baso % (Auto) 0.2 (0.0-1.5) % Neut # (Auto) 10.5 H (1.4-5.7) K/uL Lymph # (Auto) 1.3 (0.6-2.4) K/uL Reagan # (Auto) 0.3 (0.0-0.8) K/uL Eos # (Auto) 0.0 (0.0-0.7) K/uL Baso # (Auto) 0.0 (0.0-0.1) K/uL Nucleated RBC % 0.0 /100WBC Nucleated RBCs # 0 K/uL INR Lactate 1.5 (0.20-2.00) mmol/L Sodium 144 (136-148) mmol/L Potassium 3.8 (3.5-5.1) mmol/L Chloride 105 (98-107) mmol/L Carbon Dioxide 26.8 (21.0-32.0) mmol/L BUN 34 H (7.0-18.0) mg/dL Creatinine 3.1 H (0.8-1.3) mg/dL Est Cr Clr Drug Dosing 32.79 mL/min Estimated GFR (MDRD) 28.3 ml/min Glucose 228 H (74-106) mg/dL Calcium 9.2 (8.5-10.1) mg/dL Total Bilirubin 0.3 (0.2-1.0) mg/dL AST 37 (15-37) IU/L ALT 21 (14-63) IU/L Alkaline Phosphatase 100 (46-116) U/L Troponin I (0.000-0.056) ng/mL Total Protein 6.5 (6.4-8.2) g/dL Albumin 2.9 L (3.4-5.0) g/dL Globulin 3.6 (2.6-4.0) g/dL Albumin/Globulin Ratio 0.8 L (0.9-1.6) Lipase 20 L (73-393) U/L 02/15/20 02/15/20 Range/Units 19:44 19:44 WBC (4.0-11.0) K/uL RBC (4.50-5.90) M/uL Hgb (13.0-17.0) g/dL Hct (38.0-50.0) % MCV (80.0-98.0) fL MCH (27.0-32.0) pg MCHC (31.0-37.0) g/dL RDW Std Deviation (28.0-62.0) fl RDW Coeff of Dania (11.0-15.0) % Plt Count (150-400) K/uL MPV (7.40-12.00) fL Neut % (Auto) (48.0-80.0) % Lymph % (Auto) (16.0-40.0) % Reagan % (Auto) (0.0-15.0) % Eos % (Auto) (0.0-7.0) % Baso % (Auto) (0.0-1.5) % Neut # (Auto) (1.4-5.7) K/uL Lymph # (Auto) (0.6-2.4) K/uL Reagan # (Auto) (0.0-0.8) K/uL Eos # (Auto) (0.0-0.7) K/uL Baso # (Auto) (0.0-0.1) K/uL Nucleated RBC % /100WBC Nucleated RBCs # K/uL INR 0.99 Lactate (0.20-2.00) mmol/L Sodium (136-148) mmol/L Potassium (3.5-5.1) mmol/L Chloride (98-107) mmol/L Carbon Dioxide (21.0-32.0) mmol/L BUN (7.0-18.0) mg/dL Creatinine (0.8-1.3) mg/dL Est Cr Clr Drug Dosing mL/min Estimated GFR (MDRD) ml/min Glucose (74-106) mg/dL Calcium (8.5-10.1) mg/dL Total Bilirubin (0.2-1.0) mg/dL AST (15-37) IU/L ALT (14-63) IU/L Alkaline Phosphatase (46-116) U/L Troponin I < 0.050 (0.000-0.056) ng/mL Total Protein (6.4-8.2) g/dL Albumin (3.4-5.0) g/dL Globulin (2.6-4.0) g/dL Albumin/Globulin Ratio (0.9-1.6) Lipase (73-393) U/L Meds: Medications Generic Name Dose Route Start Last Admin Trade Name Freq PRN Reason Stop Dose Admin Sodium Chloride 10 ml 02/15/20 19:22 Saline Flush FLUSH ASDIRECTED PRN Keep Vein Open Sodium Chloride 2.5 ml 02/15/20 19:22 Saline Flush FLUSH ASDIRECTED PRN Keep Vein Open Sodium Chloride 10 ml 02/15/20 19:22 Normal Saline IV ASDIRECTED PRN IV Use Discontinued Medications Generic Name Dose Route Start Last Admin Trade Name Freq PRN Reason Stop Dose Admin Al Hydroxide/Mg Hydroxide 15 0 ml 02/15/20 19:47 02/15/20 20:05 ml/ Metoclopramide HCl 5 mg/ PO 02/15/20 19:48 25 each Lidocaine HCl 5 ml ONETIME ONE Administration Fentanyl 50 mcg 02/15/20 22:04 02/15/20 22:09 Fentanyl IVPUSH 02/15/20 22:05 50 mcg ONETIME ONE Administration Fentanyl Confirm 02/15/20 22:06 02/15/20 22:10 Fentanyl Administered 02/15/20 22:07 Not Given Dose 50 mcg .ROUTE .STK-MED ONE Haloperidol Lactate 5 mg 02/15/20 19:51 02/15/20 20:05 Haldol IM 02/15/20 19:52 5 mg ONETIME ONE Administration Pantoprazole Sodium 40 mg/ 10 mls @ 300 mls/hr 02/15/20 21:10 02/15/20 21:32 Sodium Chloride IV 02/15/20 21:11 300 mls/hr ONETIME ONE Administration Metoclopramide HCl 10 mg 02/15/20 21:25 02/15/20 21:32 Reglan IVPUSH 02/15/20 21:26 10 mg ONETIME ONE Administration Ondansetron HCl 4 mg 02/15/20 19:47 02/15/20 20:05 Zofran IVPUSH 02/15/20 19:48 4 mg ONETIME ONE Administration Departure - Departure Time of Disposition: 21:24 Disposition: DC/Tfer to Acute Hospital 02 Condition: Good Clinical Impression: Gastrointestinal bleeding Qualifiers: GI bleed type/associated pathology: unspecified gastrointestinal hemorrhage type Qualified Code(s): K92.2 - Gastrointestinal hemorrhage, unspecified - Discharge Information Referrals: PCP,None [Primary Care Provider] - Forms: ED Department Discharge Sepsis Event Note - Evaluation Sepsis Screening Result: No Definite Risk - Focused Exam Vital Signs: Vital Signs Temp Pulse Resp BP Pulse Ox 02/15/20 21:40 36.6 C 106 H 20 211/130 H 96 06/03/20 21:06 104 H 18 148/96 H 02/15/20 20:11 105 H 18 237/127 H 96 02/15/20 19:20 35.8 C L 107 H 20 232/131 H 96 Date Exam was Performed: 02/15/20 Time Exam was Performed: 22:28 - My Orders Last 24 Hours: My Active Orders 02/15/20 19:22 Blood Glucose Check, Bedside [RC] ONETIME Sodium Chloride 0.9% [Normal Saline] 10 ml IV ASDIRECTED PRN Sodium Chloride 0.9% [Saline Flush] 10 ml FLUSH ASDIRECTED PRN Sodium Chloride 0.9% [Saline Flush] 2.5 ml FLUSH ASDIRECTED PRN Peripheral IV Insertion Adult [OM.PC] Stat 02/15/20 19:24 EKG 12 Lead [EKG Documentation Completion] [RC] STAT - Assessment/Plan Last 24 Hours: My Active Orders 02/15/20 19:22 Blood Glucose Check, Bedside [RC] ONETIME Sodium Chloride 0.9% [Normal Saline] 10 ml IV ASDIRECTED PRN Sodium Chloride 0.9% [Saline Flush] 10 ml FLUSH ASDIRECTED PRN Sodium Chloride 0.9% [Saline Flush] 2.5 ml FLUSH ASDIRECTED PRN Peripheral IV Insertion Adult [OM.PC] Stat 02/15/20 19:24 EKG 12 Lead [EKG Documentation Completion] [RC] STAT
[2020-02-15 20:13] LABS: CARBON DIOXIDE,CO2 26.8 mmol/L (21.0-32.0); POTASSIUM,K 3.8 mmol/L (3.5-5.1)
[2020-02-15] MEDS ORDERED: Pantoprazole 40 MG in Sodium Chloride 0.9% 10 ML IV ONE (21:10)
--- NOTE | 2020-02-15 21:10 | CR ---
Chest: AP and lateral views of the chest were obtained. Comparison: Prior chest x-ray of 02/12/20. Heart size and mediastinum are normal. Lungs are clear with no acute parenchymal change. Bony structures are unremarkable for the patient's age. Impression: 1. Nothing acute is appreciated on 2 view chest x-ray. Diagnostic code #1 This report was dictated in MDT
[2020-02-15] MEDS ORDERED: Metoclopramide 10 MG/2 ML SDV IVPUSH ONE (21:25)
[2020-02-15] MEDS ORDERED: fentaNYL 50 MCG/ML SDV IVPUSH ONE (22:04)
[2020-02-15] MEDS ORDERED: fentaNYL 50 MCG/ML SDV ONE (22:06)
[2020-02-15 23:28] VITALS: BP 132/87; PULSE 94
== END 2020-02-15 23:35 ==
LOC: MW.ED 19:11
DX: K92.2 Gastrointestinal hemorrhage, unspecified (principal); I10 Essential (primary) hypertension; K21.9 Gastro-esophageal reflux disease without esophagitis; I12.9 Hypertensive chronic kidney disease with stage 1 through stage 4 chronic kidney disease, or unspecified chronic kidney disease; N18.9 Chronic kidney disease, unspecified; E10.21 Type 1 diabetes mellitus with diabetic nephropathy; E10.22 Type 1 diabetes mellitus with diabetic chronic kidney disease; E10.43 Type 1 diabetes mellitus with diabetic autonomic (poly)neuropathy; K31.84 Gastroparesis; E10.42 Type 1 diabetes mellitus with diabetic polyneuropathy; F41.9 Anxiety disorder, unspecified; Z91.013 Allergy to seafood; Z91.09 Other allergy status, other than to drugs and biological substances; Z88.0 Allergy status to penicillin; Z91.048 Other nonmedicinal substance allergy status; Z79.82 Long term (current) use of aspirin; Z79.899 Other long term (current) drug therapy; Z86.73 Personal history of transient ischemic attack (TIA), and cerebral infarction without residual deficits
CPT/HCPCS: 36415; 71046; 80053; 83605; 83690; 84484; 85025; 85610; 93005; 96374; 96375; 99285; A9270; C9113; J1630; J2405; J2765; J3010; J7050; 99284

== ENCOUNTER 2020-03-10 22:00 | Emergency (ER) | payer MEDICAID ==
[2020-03-10] MEDS ORDERED: Pantoprazole 40 MG in Sodium Chloride 0.9% 10 ML IV ONE (22:02)
[2020-03-10] MEDS ORDERED: Sodium Chloride 0.9% 1,000 ML IV ONE (22:02)
[2020-03-10] MEDS ORDERED: Haloperidol Lactate 5 MG/ML SDV IM ONE (22:02)
[2020-03-10] MEDS ORDERED: Sodium Chloride 0.9% 10 ML Syringe FLUSH PRN (22:02)
[2020-03-10] MEDS ORDERED: Sodium Chloride 0.9% 2.5 ML Syringe FLUSH PRN (22:02)
[2020-03-10 22:33] LABS: BLOOD UREA NITROGEN,BUN 40 mg/dL (7.0-18.0); CARBON DIOXIDE,CO2 22.3 mmol/L (21.0-32.0); CHLORIDE,CL 105 mmol/L (98-107); GLUCOSE RANDOM 149 mg/dL (74-106); LIPASE 26 U/L (73-393); POTASSIUM,K 4.2 mmol/L (3.5-5.1); SODIUM,NA 142 mmol/L (136-148)
--- NOTE | 2020-03-11 01:35 | EDM.PDOC ---
ED HPI GENERAL MEDICAL PROBLEM - General Chief Complaint: Abdominal Pain Stated Complaint: EMS ARRIVAL Time Seen by Provider: 03/10/20 22:01 Source of Information: Reports: Patient, EMS - History of Present Illness INITIAL COMMENTS - FREE TEXT/NARRATIVE: History of present illness: 34-year-old male brought by EMS reporting abdominal pain and vomiting since yesterday morning. He does report vomiting blood. Per EMS they did see some darkish colored emesis. Patient and EMS report history of the same. On review of the patient's chart, there are multiple visits for the same symptoms. He was here February 14, 2 times in the same day and on the first visit was discharged and on the second visit as he continued to have pain he was transferred to [place] for GI consultation and possible upper GI endoscopy. The patient reports that he did not have an endoscopy done that stay but they are planning to schedule him for endoscopy in March. Review of systems: As per history of present illness and below otherwise all systems reviewed and negative. Past medical history: As per history of present illness and as reviewed below otherwise noncontributory. Diabetes Surgical history: As per history of present illness and as reviewed below otherwise noncontributory. Amputation Social history: No reported history of drug or alcohol abuse. Family history: As per history of present illness and as reviewed below otherwise noncontributory. Physical exam: GEN: distress due to pain, well appearing HEENT: Atraumatic, normocephalic, mucous membranes moist, Neck: supple, nontender, trachea midline. Lungs: No respiratory distress. Heart: RRR Abdomen: Soft, nondistended, diffusely tender, nonfocal examination. Back: nontender Extremities: prior right lower extremity amputation. Neurovascularly intact. Neuro: Awake, alert, oriented. Neuro Exam nonfocal. Skin: warm, dry, no lesions Psych: Appears very anxious Diagnostics: [] Therapeutics: [] MDM: Impression: [] Plan: [] Definitive disposition and diagnosis as appropriate pending reevaluation and review of above. abdomen Pain Score (Numeric/FACES): 10 - Related Data Allergies Allergy/AdvReac Type Severity Reaction Status Date / Time shrimp Allergy Severe Swelling Verified 03/10/20 22:17 iodine Allergy Unknown Anaphylactic Verified 03/10/20 22:17 Shock Penicillins Allergy Unknown Anaphylactic Verified 03/10/20 22:17 Shock shellfish derived Allergy Anaphylactic Verified 03/10/20 22:17 Shock gluten Allergy Unknown Muscle Uncoded 03/10/20 22:17 Aches Home Meds: Home Meds Doxazosin [Cardura] 2 mg PO BEDTIME 09/29/19 [History] Metoprolol Succinate 200 mg PO DAILY 09/29/19 [History] Torsemide 20 mg PO DAILY 09/29/19 [History] atorvaSTATin [Lipitor] 80 mg PO BEDTIME 09/29/19 [History] Insulin Aspart [NovoLOG] 0 unit SUBCUT .UP TO 60 UN DAILY 09/30/19 [History] Metoclopramide [Reglan] 5 mg PO TIDAC #90 tablet 10/10/19 [Rx] Pantoprazole [ProTONIX] 40 mg PO DAILY #30 tab.cr 10/10/19 [Rx] Ondansetron [Zofran ODT] 4 mg PO Q6H PRN #20 tab.dis 12/04/19 [Rx] Aspirin [Adult Low Dose Aspirin EC] 81 mg PO DAILY 12/07/19 [History] Enalapril Maleate 40 mg PO DAILY 12/07/19 [History] Insulin Glarg,Human.Rec.Analog [Lantus] 50 mg SUBCUT BEDTIME 12/07/19 [History] Iron Ag,Ps/C/Fa6/B12/Zn/SA/Sto [Niferex Tablet] 150 mg PO BID 12/07/19 [History] Sertraline [Zoloft] 50 mg PO DAILY 12/07/19 [History] Spironolactone [Aldactone] 25 mg PO BID 12/07/19 [History] Sucralfate 1 gm PO QIDACANDBED 12/07/19 [History] amLODIPine Besylate [Amlodipine Besylate] 10 mg PO DAILY 12/07/19 [History] hydrALAZINE [Apresoline] 25 mg PO TID 12/07/19 [History] hydroCHLOROthiazide [Hydrochlorothiazide] 25 mg PO DAILY 12/07/19 [History] Omeprazole Magnesium [Prilosec Otc] 20 mg PO BID #30 tablet. 12/30/19 [Rx] haloperidoL [Haldol] 5 mg PO Q12HR #60 tab 02/15/20 [Rx] Past Medical History - Past Health History Medical/Surgical History: Denies Medical/Surgical History HEENT History: Reports: Impaired Vision Other HEENT History: blind right eye Cardiovascular History: Reports: Hypertension Respiratory History: Reports: None Gastrointestinal History: Reports: Gastritis, GERD, Hiatal Hernia, Other (See Below) Other Gastrointestinal History: h/o gastric ulcers, h/o hiatal hernia; gastroparesis Genitourinary History: Reports: Chronic Renal Insuffiency, Diabetic Nephropathy Musculoskeletal History: Reports: Amputation Neurological History: Reports: Neuropathy, Peripheral Other Neuro History: stroke Psychiatric History: Reports: Anxiety Endocrine/Metabolic History: Reports: Diabetes, Type I Other Endocrine/Metabolic History: brittle diabetic. 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 - Past Surgical History Head Surgeries/Procedures: Reports: None HEENT Surgical History: Reports: None Cardiovascular Surgical History: Reports: None Respiratory Surgical History: Reports: None GI Surgical History: Reports: None Male Surgical History: Reports: None Endocrine Surgical History: Reports: None Neurological Surgical History: Reports: None Musculoskeletal Surgical History: Reports: Other (See Below) Other Musculoskeletal Surgeries/Procedures:: right BKA Oncologic Surgical History: Reports: None Dermatological Surgical History: Reports: None Social & Family History - Family History Family Medical History: Noncontributory Cardiac: Reports: High Cholesterol, Hypertension OBGYN: Reports: Neurological: Reports: None Psychiatric: Reports: Anxiety - Tobacco Use Smoking Status *Q: Former Smoker Used Tobacco, but Quit: Yes Month/Year Tobacco Last Used: "long time ago" - Caffeine Use Caffeine Use: Reports: None Other Caffeine Use: daily Caffeine Use Comment: patient is uncooperated - Recreational Drug Use Recreational Drug Use: No - Living Situation & Occupation Living situation: Reports: Single Occupation: Employed (Currently unemployed.) ED ROS GENERAL - Review of Systems Review Of Systems: See Below (See HPI) ED EXAM, GI/ABD - Physical Exam Exam: See Below (See HPI) Course - Vital Signs Text/Narrative:: Patient with abdominal pain. Patient history of abdominal pain and apparently prior multiple visits here before. Vomiting dark material here today. Given Protonix and Haldol. Vomiting and abdominal pain is now much improved. Abnormal labs, including creatinine elevation which is approximately the same as on prior admission. Also elevated white count, anemia, all of these appear consistent with prior ER and hospital visits. Discussed all these results with the patient, who is feeling much better and request to be discharged home. At this time no indication to admit to the hospital. He does have planned follow-up with GI for an upper endoscopy and reports a negative upper endoscopy sometime in the last few months, negative for varices or ulceration per the patient. Therefore we will discharge the patient. Though the patient was resting comfortably and in no acute distress on repeat examination, his final vital signs did show ongoing tachycardia. I had ordered additional IV fluids to rehydrate the patient and plan to further work-up, however the patient reported he felt fine and wanted to be discharged without any further testing or treatment. Therefore the patient was allowed to leave on his own decision, AMA. Last Recorded V/S: Last Vital Signs Temp 96.8 F L 03/11/20 02:10 Pulse 124 H 03/11/20 02:10 Resp 18 03/11/20 02:10 BP 180/125 H 03/11/20 02:10 Pulse Ox 96 03/11/20 02:10 - Orders/Labs/Meds Orders: Active Orders 24 hr Category Date Time Status EKG 12 Lead [EKG Documentation Completion] [RC] STAT Care 03/10/20 22:04 Active Saline Lock Insert [OM.PC] Stat Oth 03/10/20 22:02 Ordered Labs: Laboratory Tests 03/10/20 03/10/20 Range/Units 22:10 22:10 WBC 15.34 H (4.0-11.0) K/uL RBC 4.93 (4.50-5.90) M/uL Hgb 10.7 L (13.0-17.0) g/dL Hct 32.7 L (38.0-50.0) % MCV 66.3 L (80.0-98.0) fL MCH 21.7 L (27.0-32.0) pg MCHC 32.7 (31.0-37.0) g/dL RDW Std Deviation 38.9 (28.0-62.0) fl RDW Coeff of Dania 16 H (11.0-15.0) % Plt Count 519 H (150-400) K/uL MPV 10.30 (7.40-12.00) fL Neut % (Auto) 82.3 H (48.0-80.0) % Lymph % (Auto) 12.4 L (16.0-40.0) % Howell % (Auto) 4.8 (0.0-15.0) % Eos % (Auto) 0.2 (0.0-7.0) % Baso % (Auto) 0.3 (0.0-1.5) % Neut # (Auto) 12.6 H (1.4-5.7) K/uL Lymph # (Auto) 1.9 (0.6-2.4) K/uL Howell # (Auto) 0.7 (0.0-0.8) K/uL Eos # (Auto) 0.0 (0.0-0.7) K/uL Baso # (Auto) 0.0 (0.0-0.1) K/uL Nucleated RBC % 0.0 /100WBC Nucleated RBCs # 0 K/uL Sodium 142 (136-148) mmol/L Potassium 4.2 (3.5-5.1) mmol/L Chloride 105 (98-107) mmol/L Carbon Dioxide 22.3 (21.0-32.0) mmol/L BUN 40 H (7.0-18.0) mg/dL Creatinine 3.3 H (0.8-1.3) mg/dL Est Cr Clr Drug Dosing TNP Estimated GFR (MDRD) 26.3 ml/min Glucose 149 H (74-106) mg/dL Calcium 9.0 (8.5-10.1) mg/dL Total Bilirubin 0.2 (0.2-1.0) mg/dL AST 23 (15-37) IU/L ALT 18 (14-63) IU/L Alkaline Phosphatase 113 (46-116) U/L Total Protein 7.4 (6.4-8.2) g/dL Albumin 3.1 L (3.4-5.0) g/dL Globulin 4.3 H (2.6-4.0) g/dL Albumin/Globulin Ratio 0.7 L (0.9-1.6) Lipase 26 L (73-393) U/L Meds: Medications Discontinued Medications Generic Name Dose Route Start Last Admin Trade Name Lynn PRN Reason Stop Dose Admin Haloperidol Lactate 5 mg 03/10/20 22:02 03/10/20 22:15 Haldol IM 03/10/20 22:03 5 mg ONETIME ONE Administration Sodium Chloride 1,000 mls @ 999 mls/hr 03/10/20 22:02 03/10/20 22:13 Normal Saline IV 03/10/20 23:02 999 mls/hr .Bolus ONE Administration Pantoprazole Sodium 40 mg/ 10 mls @ 300 mls/hr 03/10/20 22:02 03/10/20 22:13 Sodium Chloride IV 03/10/20 22:03 300 mls/hr NOW ONE Administration Sodium Chloride 10 ml 03/10/20 22:02 Saline Flush FLUSH ASDIRECTED PRN Keep Vein Open Sodium Chloride 2.5 ml 03/10/20 22:02 Saline Flush FLUSH ASDIRECTED PRN Keep Vein Open - Re-Assessments/Exams Free Text/Narrative Re-Assessment/Exam: 03/10/20 23:33 The patient is now resting comfortably. On reassessment he reports that his abdominal pain is much better and the vomiting has stopped. 03/11/20 01:50 The patient reports he is feeling much better on reassessment. His pain is significantly improved and he has not vomited since I last evaluated him in the emergency department. Discussed his results here today. He gave me more of the back information about his recent ER visit and hospitalization, including transfer to [place] where he did not end up having the EGD at that time. He does report that several months ago he had an EGD done here at the [address] [place] [address] by a surgeon and was told that he had no ulcers nor varices and there was uncertain cause for his hematemesis. We did discuss marijuana usage. He reports that he uses marijuana rarely. We did discuss marijuana cessation in case this may be marijuana hyperemesis syndrome, as well as potential treatments for hyperemesis at home prior to coming to the emergency department, however he reports he suspects this is due to his gastroparesis from his diabetes. He is feeling well at this time and would like to be discharged home. He does take Reglan at home and I verified that he has an adequate supply of his prescription at home, which he reports he does. 03/11/20 02:01 At the time of discharge, the patient's final vital signs showed that he is still tachycardic. Therefore requested further evaluation and a liter of fluid. The patient declined and would like to be discharged right now without any further treatment or testing. The patient will sign AMA. Departure - Departure Time of Disposition: 02:02 Disposition: Against Medical Advice 07 Clinical Impression: Abdominal pain, Hx of gastroesophageal reflux (GERD), Gastroparesis Abdominal pain Qualifiers: Abdominal location: generalized Qualified Code(s): R10.84 - Generalized abdominal pain Vomiting Qualifiers: Vomiting type: unspecified Vomiting Intractability: non-intractable Nausea presence: with nausea Qualified Code(s): R11.2 - Nausea with vomiting, unspecified - Discharge Information Instructions: Nausea and Vomiting, Adult, [id number], Abdominal Pain, Adult, [id number], Gastroparesis Referrals: PCP,None [Primary Care Provider] - Forms: ED Department Discharge Additional Instructions: The following information is given to patients seen in the emergency department who are being discharged to home. This information is to outline your options for follow-up care. We provide all patients seen in our emergency department with a follow-up referral. The need for follow-up, as well as the timing and circumstances, are variable depending upon the specifics of your emergency department visit. If you don't have a primary care physician on staff, we will provide you with a referral. We always advise you to contact your personal physician following an emergency department visit to inform them of the circumstance of the visit and for follow-up with them and/or the need for any referrals to a consulting specialist. The emergency department will also refer you to a specialist when appropriate. This referral assures that you have the opportunity for follow-up care with a specialist. All of these measure are taken in an effort to provide you with optimal care, which includes your follow-up. Under all circumstances we always encourage you to contact your private physician who remains a resource for coordinating your care. When calling for follow-up care, please make the office aware that this follow-up is from your recent emergency room visit. If for any reason you are refused follow-up, please contact the [facility] Emergency Department at and asked to speak to the emergency department charge nurse. [facility] - Primary Care [address] [place] [address] [facility] [address] [place] [address] [facility] - General Surgery Professional Building [address] [facility], [address] [place] [address] Please drink lots of fluids. Please continue to watch your glucose levels. Continue to take your Reglan. Please follow-up with your the primary clinics above for ongoing medical care. Please also follow-up with the surgeon as listed above, or the GI physician as you had been referred to for upper GI endoscopy. Return to the ER if worsening pain, difficulty keeping down food or fluids or any other concerning symptoms. Sepsis Event Note (ED) - Evaluation Sepsis Screening Result: No Definite Risk - Focused Exam Vital Signs: Vital Signs Temp Pulse Resp BP Pulse Ox 03/11/20 02:10 96.8 F L 124 H 18 180/125 H 96 03/10/20 23:00 117 H 185/122 H 97 03/10/20 22:15 143 H 23 H 220/141 H 97 03/10/20 22:01 96.5 F L 143 H 22 H 232/141 H 100 - My Orders Last 24 Hours: My Active Orders 03/10/20 22:02 Saline Lock Insert [OM.PC] Stat 03/10/20 22:04 EKG 12 Lead [EKG Documentation Completion] [RC] STAT - Assessment/Plan Last 24 Hours: My Active Orders 03/10/20 22:02 Saline Lock Insert [OM.PC] Stat 03/10/20 22:04 EKG 12 Lead [EKG Documentation Completion] [RC] STAT
[2020-03-11 02:26] VITALS: BP 180/125; PULSE 124
== END 2020-03-11 02:10 | disposition left against medical advice (07) ==
LOC: MW.ED 22:00
DX: R10.84 Generalized abdominal pain (principal); R11.2 Nausea with vomiting, unspecified; E10.43 Type 1 diabetes mellitus with diabetic autonomic (poly)neuropathy; I12.9 Hypertensive chronic kidney disease with stage 1 through stage 4 chronic kidney disease, or unspecified chronic kidney disease; K31.84 Gastroparesis; K21.9 Gastro-esophageal reflux disease without esophagitis; E10.21 Type 1 diabetes mellitus with diabetic nephropathy; E10.22 Type 1 diabetes mellitus with diabetic chronic kidney disease; E10.40 Type 1 diabetes mellitus with diabetic neuropathy, unspecified; Z87.891 Personal history of nicotine dependence; Z91.013 Allergy to seafood; Z91.09 Other allergy status, other than to drugs and biological substances; Z88.0 Allergy status to penicillin; Z91.048 Other nonmedicinal substance allergy status; Z79.82 Long term (current) use of aspirin
CPT/HCPCS: 36415; 80053; 83690; 85025; 93005; 96361; 96372; 96374; 99285; C9113; J1630; J7030; J7050; 99283

== ENCOUNTER 2020-04-11 17:13 | Observation (INO) | payer BC, MEDICAID, OTHER ==
[2020-04-11] MEDS ORDERED: Sodium Chloride 0.9% 2.5 ML Syringe FLUSH PRN (17:16)
[2020-04-11] MEDS ORDERED: Sodium Chloride 0.9% 10 ML Syringe FLUSH PRN (17:16)
[2020-04-11] MEDS ORDERED: Lactated Ringers 1,000 ML IV ONE ×2 (17:16→20:02)
[2020-04-11] MEDS ORDERED: Haloperidol Lactate 5 MG/ML SDV IM ONE (17:21)
[2020-04-11 18:07] LABS: BLOOD UREA NITROGEN,BUN 30 mg/dL (7.0-18.0); CARBON DIOXIDE,CO2 18.5 mmol/L (21.0-32.0); CHLORIDE,CL 104 mmol/L (98-107); GLUCOSE RANDOM 400 mg/dL (74-106); LIPASE 36 U/L (73-393); POTASSIUM,K 5.2 mmol/L (3.5-5.1); SODIUM,NA 137 mmol/L (136-148)
--- NOTE | 2020-04-11 20:03 | EDM.PDOC ---
<Vinod Momin - Last Filed: 04/11/20 20:03> ED HPI GENERAL MEDICAL PROBLEM - General Chief Complaint: Abdominal Pain Stated Complaint: VOMITTING Time Seen by Provider: 04/11/20 17:16 Source of Information: Reports: Patient, Old Records History Limitations: Reports: No Limitations - History of Present Illness INITIAL COMMENTS - FREE TEXT/NARRATIVE: 34-year-old male with an extensive history of type 1 diabetes mellitus, DKA, diabetic foot ulcers, chronic renal insufficiency, status post BKA visits to the emergency department for abdominal pain and reports of hematemesis. Multiple visits to emergency department over the past year for reports of severe diffuse abdominal pain, vomiting blood. Typically presents hyperglycemic and tachycardic in a rather dramatic fashion. Today he presents emergency department complaining of vomiting blood for the past 3 days along with diffuse, nonfocal abdominal pain. Nothing makes pain better or worse. Denies any rectal bleeding. Has not yet had upper endoscopy/EGD to evaluate for his chronic hematemesis issues. Nothing makes his pain better or worse, constant, nonradiating, rated as 10 out of 10. Abdomen Pain Score (Numeric/FACES): 8 - Related Data Allergies Allergy/AdvReac Type Severity Reaction Status Date / Time shrimp Allergy Severe Swelling Verified 03/10/20 22:17 iodine Allergy Unknown Anaphylactic Verified 03/10/20 22:17 Shock Penicillins Allergy Unknown Anaphylactic Verified 03/10/20 22:17 Shock shellfish derived Allergy Anaphylactic Verified 03/10/20 22:17 Shock gluten Allergy Severe Muscle Uncoded 03/13/20 10:42 MDT Aches Home Meds: Home Meds Doxazosin [Cardura] 2 mg PO BEDTIME 09/29/19 [History] Metoprolol Succinate 200 mg PO DAILY 09/29/19 [History] Torsemide 20 mg PO DAILY 09/29/19 [History] atorvaSTATin [Lipitor] 80 mg PO BEDTIME 09/29/19 [History] Insulin Aspart [NovoLOG] 0 unit SUBCUT .UP TO 60 UN DAILY 09/30/19 [History] Metoclopramide [Reglan] 5 mg PO TIDAC #90 tablet 10/10/19 [Rx] Pantoprazole [ProTONIX] 40 mg PO DAILY #30 tab.cr 10/10/19 [Rx] Ondansetron [Zofran ODT] 4 mg PO Q6H PRN #20 tab.dis 12/04/19 [Rx] Aspirin [Adult Low Dose Aspirin EC] 81 mg PO DAILY 12/07/19 [History] Enalapril Maleate 40 mg PO DAILY 12/07/19 [History] Insulin Glarg,Human.Rec.Analog [Lantus] 50 mg SUBCUT BEDTIME 12/07/19 [History] Iron Ag,Ps/C/Fa6/B12/Zn/SA/Sto [Niferex Tablet] 150 mg PO BID 12/07/19 [History] Sertraline [Zoloft] 50 mg PO DAILY 12/07/19 [History] Spironolactone [Aldactone] 25 mg PO BID 12/07/19 [History] Sucralfate 1 gm PO QIDACANDBED 12/07/19 [History] amLODIPine Besylate [Amlodipine Besylate] 10 mg PO DAILY 12/07/19 [History] hydrALAZINE [Apresoline] 25 mg PO TID 12/07/19 [History] hydroCHLOROthiazide [Hydrochlorothiazide] 25 mg PO DAILY 12/07/19 [History] Omeprazole Magnesium [Prilosec Otc] 20 mg PO BID #30 tablet. 12/30/19 [Rx] haloperidoL [Haldol] 5 mg PO Q12HR #60 tab 02/15/20 [Rx] Hydrocodone/Acetaminophen [Hydrocodone-Acetamin 5-325 mg] 1 - 2 each PO Q6HR PRN #10 tablet 03/13/20 [Rx] Past Medical History - Past Health History Medical/Surgical History: Denies Medical/Surgical History HEENT History: Reports: Impaired Vision Other HEENT History: blind right eye Cardiovascular History: Reports: Hypertension Respiratory History: Reports: None Gastrointestinal History: Reports: Gastritis, GERD, Hiatal Hernia, Other (See Below) Other Gastrointestinal History: h/o gastric ulcers, h/o hiatal hernia; gastroparesis Genitourinary History: Reports: Chronic Renal Insuffiency, Diabetic Nephropathy Musculoskeletal History: Reports: Amputation Other Musculoskeletal History: RLE Neurological History: Reports: Neuropathy, Peripheral Other Neuro History: stroke Psychiatric History: Reports: Anxiety Endocrine/Metabolic History: Reports: Diabetes, Type I Other Endocrine/Metabolic History: brittle diabetic. 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 - Past Surgical History Head Surgeries/Procedures: Reports: None HEENT Surgical History: Reports: None Respiratory Surgical History: Reports: None GI Surgical History: Reports: None Male Surgical History: Reports: None Endocrine Surgical History: Reports: None Oncologic Surgical History: Reports: None Dermatological Surgical History: Reports: None Social & Family History - Family History Family Medical History: Noncontributory Cardiac: Reports: High Cholesterol, Hypertension OBGYN: Reports: Neurological: Reports: None Psychiatric: Reports: Anxiety - Tobacco Use Smoking Status *Q: Never Smoker - Caffeine Use Caffeine Use: Reports: Tea Other Caffeine Use: daily Caffeine Use Comment: patient is uncooperated - Recreational Drug Use Recreational Drug Use: No - Living Situation & Occupation Living situation: Reports: Single Occupation: Employed (Currently unemployed.) ED ROS GENERAL - Review of Systems Review Of Systems: See Below Constitutional: Denies: Fever, Chills HEENT: Reports: No Symptoms Respiratory: Denies: Shortness of Breath Cardiovascular: Denies: Chest Pain Endocrine: Reports: No Symptoms GI/Abdominal: Reports: Abdominal Pain, Hematemesis, Nausea, Vomiting. Denies: Black Stool, Distension, Melena : Reports: No Symptoms Musculoskeletal: Reports: No Symptoms Skin: Reports: No Symptoms Neurological: Reports: No Symptoms ED EXAM, GI/ABD - Physical Exam Exam: See Below Text/Narrative:: Vital signs reviewed. Nursing notes reviewed. Constitutional: Awake, alert, extremely anxious Head: Normocephalic, atraumatic. Eyes: EOMI, conjunctiva normal, no discharge, no scleral icterus. Ears, Nose, Throat: External ears and nose normal, moist oral mucosa. Cardiovascular: Tachycardic, 2+ radial pulse, capillary refill less than 2 seconds. Pulmonary: normal work of breathing, no accessory muscle use. Abdomen/GI: Soft, minimally tender diffusely, nondistended, no guarding or rigidity, no masses. Musculoskeletal: No deformities. Integumentary: Appropriate color for ethnicity, warm, dry, no pallor or jaundice, no rash. Neurologic: Alert, normal speech, no facial droop, moving all extremities well. Psychiatric: No hallucinations Course - Vital Signs Text/Narrative:: 34-year-old male presenting with chronic abdominal pain and typical complaints of hematemesis. Tachycardic on arrival. IV access established, IV fluids administered. Labs show slight worsening of chronic anemia, normal platelets and white blood cell count. INR and lactate are normal. Chemistry panel shows mild hyperkalemia and chronic creatinine elevation. Glucose is 400 and CO2 is slightly low at 18.5. Clinically have a low suspicion for DKA at this point given that this is a typical presentation. Will plan for IV fluids, symptomatic control with IV haloperidol for abdominal pain, nausea, vomiting. Remain in the emergency department the end of my shift receiving additional IV fluids (total 2L), pending reevaluation. Signed out to my colleague Dr. Narvaez, refer to his note for final disposition. Departure - Departure Disposition: Refer to Observation Clinical Impression: DKA (diabetic ketoacidoses) Qualifiers: Diabetes mellitus type: type 1 Diabetes mellitus complication detail: without coma Qualified Code(s): E10.10 - Type 1 diabetes mellitus with ketoacidosis without coma Abdominal pain Qualifiers: Abdominal location: generalized Qualified Code(s): R10.84 - Generalized abdominal pain - Discharge Information Referrals: PCP,None [Primary Care Provider] - Forms: ED Department Discharge Sepsis Event Note (ED) - Evaluation Sepsis Screening Result: No Definite Risk <Chirag Horta - Last Filed: 04/11/20 22:21> Course - Vital Signs Last Recorded V/S: Last Vital Signs Temp 97.7 F 04/11/20 17:14 Pulse 109 H 04/11/20 19:44 Resp 17 04/11/20 18:20 BP 170/86 H 04/11/20 19:44 Pulse Ox 100 04/11/20 19:44 - Orders/Labs/Meds Orders: Active Orders 24 hr Category Date Time Status Cardiac Monitoring [RC] . DIRECTED Care 04/11/20 17:16 Active Pulse Oximetry [RC] ASDIRECTED Care 04/11/20 17:16 Active Abdomen Pelvis wo Cont [CT] Stat Exams 04/11/20 21:19 Taken URINALYSIS W/O MICROSCOPIC [UA W/O MICROSCOPIC] [URIN] Lab 04/11/20 22:09 Ordered Stat Sodium Chloride 0.9% [Normal Saline] 1,000 ml Med 04/11/20 21:21 Active IV BOLUS Sodium Chloride 0.9% [Saline Flush] Med 04/11/20 17:16 Active 10 ml FLUSH ASDIRECTED PRN Sodium Chloride 0.9% [Saline Flush] Med 04/11/20 17:16 Active 2.5 ml FLUSH ASDIRECTED PRN Saline Lock Insert [OM.PC] Stat Oth 04/11/20 17:16 Ordered Medication Orders Sodium Chloride (Normal Saline) 1,000 mls @ 1,000 mls/hr IV BOLUS ONE Stop: 04/11/20 22:20 Sodium Chloride (Saline Flush) 10 ml FLUSH ASDIRECTED PRN PRN Reason: Keep Vein Open Last Admin: 04/11/20 17:27 Dose: 10 ml Documented by: [id number] Sodium Chloride (Saline Flush) 2.5 ml FLUSH ASDIRECTED PRN PRN Reason: Keep Vein Open Last Admin: 04/11/20 17:27 Dose: 2.5 ml Documented by: [id number] Labs: Laboratory Tests 04/11/20 04/11/20 04/11/20 Range/Units 17:19 17:19 17:19 WBC (4.0-11.0) K/uL RBC (4.50-5.90) M/uL Hgb (13.0-17.0) g/dL Hct (38.0-50.0) % MCV (80.0-98.0) fL MCH (27.0-32.0) pg MCHC (31.0-37.0) g/dL RDW Std Deviation (28.0-62.0) fl RDW Coeff of Dania (11.0-15.0) % Plt Count (150-400) K/uL MPV (7.40-12.00) fL Neut % (Auto) (48.0-80.0) % Lymph % (Auto) (16.0-40.0) % [place] % (Auto) (0.0-15.0) % Eos % (Auto) (0.0-7.0) % Baso % (Auto) (0.0-1.5) % Neut # (Auto) (1.4-5.7) K/uL Lymph # (Auto) (0.6-2.4) K/uL [place] # (Auto) (0.0-0.8) K/uL Eos # (Auto) (0.0-0.7) K/uL Baso # (Auto) (0.0-0.1) K/uL Nucleated RBC % /100WBC Nucleated RBCs # K/uL INR 0.92 VBG pH (7.31-7.41) VBG pCO2 (35-45) mmHG VBG pO2 (30-40) mmHG VBG HCO3 (22-30) mEq/L VBG Total CO2 (41-51) mmol/L VBG Base Excess (-3.0-3.0) Lactate 1.8 (0.20-2.00) mmol/L Sodium 137 (136-148) mmol/L Potassium 5.2 H (3.5-5.1) mmol/L Chloride 104 (98-107) mmol/L Carbon Dioxide 18.5 L (21.0-32.0) mmol/L BUN 30 H (7.0-18.0) mg/dL Creatinine 2.8 H (0.8-1.3) mg/dL Est Cr Clr Drug Dosing 36.30 mL/min Estimated GFR (MDRD) 31.8 ml/min Glucose 400 H (74-106) mg/dL Calcium 8.0 L (8.5-10.1) mg/dL Total Bilirubin 0.3 (0.2-1.0) mg/dL AST 19 (15-37) IU/L ALT 16 (14-63) IU/L Alkaline Phosphatase 100 (46-116) U/L Troponin I < 0.050 (0.000-0.056) ng/mL Total Protein 6.7 (6.4-8.2) g/dL Albumin 2.9 L (3.4-5.0) g/dL Globulin 3.8 (2.6-4.0) g/dL Albumin/Globulin Ratio 0.8 L (0.9-1.6) Lipase 36 L (73-393) U/L Ketones (NEG) 04/11/20 04/11/20 04/11/20 Range/Units 17:19 20:38 20:38 WBC 9.63 (4.0-11.0) K/uL RBC 4.61 (4.50-5.90) M/uL Hgb 9.8 L (13.0-17.0) g/dL Hct 31.2 L (38.0-50.0) % MCV 67.7 L (80.0-98.0) fL MCH 21.3 L (27.0-32.0) pg MCHC 31.4 (31.0-37.0) g/dL RDW Std Deviation 40.0 (28.0-62.0) fl RDW Coeff of Dania 16 H (11.0-15.0) % Plt Count 314 (150-400) K/uL MPV 10.20 (7.40-12.00) fL Neut % (Auto) 73.3 (48.0-80.0) % Lymph % (Auto) 20.0 (16.0-40.0) % [place] % (Auto) 3.6 (0.0-15.0) % Eos % (Auto) 2.6 (0.0-7.0) % Baso % (Auto) 0.5 (0.0-1.5) % Neut # (Auto) 7.1 H (1.4-5.7) K/uL Lymph # (Auto) 1.9 (0.6-2.4) K/uL [place] # (Auto) 0.4 (0.0-0.8) K/uL Eos # (Auto) 0.3 (0.0-0.7) K/uL Baso # (Auto) 0.1 (0.0-0.1) K/uL Nucleated RBC % 0.0 /100WBC Nucleated RBCs # 0 K/uL INR VBG pH 7.33 (7.31-7.41) VBG pCO2 29 L (35-45) mmHG VBG pO2 134 H (30-40) mmHG VBG HCO3 15 L (22-30) mEq/L VBG Total CO2 15 L (41-51) mmol/L VBG Base Excess -9.4 L (-3.0-3.0) Lactate (0.20-2.00) mmol/L Sodium 136 (136-148) mmol/L Potassium 5.3 H (3.5-5.1) mmol/L Chloride 104 (98-107) mmol/L Carbon Dioxide 18.4 L (21.0-32.0) mmol/L BUN 34 H (7.0-18.0) mg/dL Creatinine 2.8 H (0.8-1.3) mg/dL Est Cr Clr Drug Dosing 36.30 mL/min Estimated GFR (MDRD) 31.8 ml/min Glucose 481 H (74-106) mg/dL Calcium 7.5 L (8.5-10.1) mg/dL Total Bilirubin (0.2-1.0) mg/dL AST (15-37) IU/L ALT (14-63) IU/L Alkaline Phosphatase (46-116) U/L Troponin I (0.000-0.056) ng/mL Total Protein (6.4-8.2) g/dL Albumin (3.4-5.0) g/dL Globulin (2.6-4.0) g/dL Albumin/Globulin Ratio (0.9-1.6) Lipase (73-393) U/L Ketones (NEG) 04/11/20 Range/Units 20:38 WBC (4.0-11.0) K/uL RBC (4.50-5.90) M/uL Hgb (13.0-17.0) g/dL Hct (38.0-50.0) % MCV (80.0-98.0) fL MCH (27.0-32.0) pg MCHC (31.0-37.0) g/dL RDW Std Deviation (28.0-62.0) fl RDW Coeff of Dania (11.0-15.0) % Plt Count (150-400) K/uL MPV (7.40-12.00) fL Neut % (Auto) (48.0-80.0) % Lymph % (Auto) (16.0-40.0) % [place] % (Auto) (0.0-15.0) % Eos % (Auto) (0.0-7.0) % Baso % (Auto) (0.0-1.5) % Neut # (Auto) (1.4-5.7) K/uL Lymph # (Auto) (0.6-2.4) K/uL [place] # (Auto) (0.0-0.8) K/uL Eos # (Auto) (0.0-0.7) K/uL Baso # (Auto) (0.0-0.1) K/uL Nucleated RBC % /100WBC Nucleated RBCs # K/uL INR VBG pH (7.31-7.41) VBG pCO2 (35-45) mmHG VBG pO2 (30-40) mmHG VBG HCO3 (22-30) mEq/L VBG Total CO2 (41-51) mmol/L VBG Base Excess (-3.0-3.0) Lactate (0.20-2.00) mmol/L Sodium (136-148) mmol/L Potassium (3.5-5.1) mmol/L Chloride (98-107) mmol/L Carbon Dioxide (21.0-32.0) mmol/L BUN (7.0-18.0) mg/dL Creatinine (0.8-1.3) mg/dL Est Cr Clr Drug Dosing mL/min Estimated GFR (MDRD) ml/min Glucose (74-106) mg/dL Calcium (8.5-10.1) mg/dL Total Bilirubin (0.2-1.0) mg/dL AST (15-37) IU/L ALT (14-63) IU/L Alkaline Phosphatase (46-116) U/L Troponin I (0.000-0.056) ng/mL Total Protein (6.4-8.2) g/dL Albumin (3.4-5.0) g/dL Globulin (2.6-4.0) g/dL Albumin/Globulin Ratio (0.9-1.6) Lipase (73-393) U/L Ketones SMALL H (NEG) Meds: Medications Generic Name Dose Route Start Last Admin Trade Name Freq PRN Reason Stop Dose Admin Sodium Chloride 1,000 mls @ 1,000 mls/hr 04/11/20 21:21 Normal Saline IV 04/11/20 22:20 BOLUS ONE Sodium Chloride 10 ml 04/11/20 17:16 04/11/20 17:27 Saline Flush FLUSH 10 ml ASDIRECTED PRN Administration Keep Vein Open Sodium Chloride 2.5 ml 04/11/20 17:16 04/11/20 17:27 Saline Flush FLUSH 2.5 ml ASDIRECTED PRN Administration Keep Vein Open Discontinued Medications Generic Name Dose Route Start Last Admin Trade Name Lynn PRN Reason Stop Dose Admin Haloperidol Lactate 10 mg 04/11/20 17:21 04/11/20 17:28 Haldol IM 04/11/20 17:22 10 mg ONETIME ONE Administration Lactated Ringer's 1,000 mls @ 999 mls/hr 04/11/20 17:16 04/11/20 17:24 Ringers, Lactated IV 04/11/20 18:16 999 mls/hr .BOLUS ONE Administration Lactated Ringer's 1,000 mls @ 999 mls/hr 04/11/20 20:02 04/11/20 20:28 Ringers, Lactated IV 04/11/20 21:02 999 mls/hr .BOLUS ONE Administration Insulin Human Regular 10 unit 04/11/20 21:20 Novolin R IVPUSH 04/11/20 21:21 ONETIME ONE Protocol - Re-Assessments/Exams Free Text/Narrative Re-Assessment/Exam: 04/11/20 22:18 Sign it received from Dr. Momin at 7 PM: This is a 34-year-old gentleman who is well-known to [facility] secondary to chronic episodes of abdominal discomfort. Patient does have a history significant for insulin-dependent diabetes. In the ED, the patient was monitored and given adequate analgesia and hydration. Patient's labs were concerning for mild diabetic ketoacidosis. Patient had a venous blood gas which revealed a pH of 7.33 and a bicarb of 15. Patient's serum ketones were small. Given the patient's poor medical compliance, his persistent elevated blood sugar in the ER, his mild metabolic acidosis, feel patient would be best served with admission for management of his DKA. Case has been discussed with Dr. Jeffery who has agreed to assist us with admission of this patient. Departure - Departure Time of Disposition: 22:20 Condition: Fair Sepsis Event Note (ED) - Focused Exam Vital Signs: Vital Signs Temp Pulse Resp BP Pulse Ox 04/11/20 19:44 109 H 170/86 H 100 04/11/20 18:50 106 H 175/105 H 98 04/11/20 18:20 106 H 17 179/106 H 97 04/11/20 17:14 97.7 F 125 H 20 205/130 H 98 - My Orders Last 24 Hours: My Active Orders 04/11/20 21:19 Abdomen Pelvis wo Cont [CT] Stat 04/11/20 21:21 Sodium Chloride 0.9% [Normal Saline] 1,000 ml IV BOLUS 04/11/20 22:09 URINALYSIS W/O MICROSCOPIC [UA W/O MICROSCOPIC] [URIN] Stat - Assessment/Plan Last 24 Hours: My Active Orders 04/11/20 21:19 Abdomen Pelvis wo Cont [CT] Stat 04/11/20 21:21 Sodium Chloride 0.9% [Normal Saline] 1,000 ml IV BOLUS 04/11/20 22:09 URINALYSIS W/O MICROSCOPIC [UA W/O MICROSCOPIC] [URIN] Stat
[2020-04-11 21:01] LABS: CARBON DIOXIDE,CO2 18.4 mmol/L (21.0-32.0); POTASSIUM,K 5.3 mmol/L (3.5-5.1)
[2020-04-11] MEDS ORDERED: Insulin Regular, Human 100 Units/ML 10 ML Vial IVPUSH ONE (21:20)
[2020-04-11] MEDS ORDERED: Sodium Chloride 0.9% 1,000 ML IV ONE (21:21)
--- NOTE | 2020-04-11 22:26 | CT ---
CT abdomen and pelvis Comparison: Prior CT abdomen and pelvis exam of 11/21/19. Technique: Multiple axial sections were obtained from above the dome of the diaphragm inferiorly through the pubic symphysis. Intravenous and oral contrast not utilized. Respiratory motion artifact is also noted with technologist's note stating that patient would not follow breathing instructions. Findings: Details are extremely limited for reasons as noted above. Visualized lung bases show nothing acute. Noncontrast appearance of the liver and spleen shows no gross abnormality. No discrete nodule within the adrenal glands. Kidneys show no abnormal calcifications. No gross findings of renal calculi are seen. Pancreas very poorly seen. Gallbladder contains no calcified gallstones. Aorta shows no aneurysm. No discrete retroperitoneal adenopathy is seen. No mesenteric abnormalities are seen. No pelvic mass or adenopathy is noted. Bladder wall is slightly thickened raising the possibility of cystitis. Appendix is not visualized. Bone window settings were reviewed which shows no discrete osseous finding. Impression: 1. Bladder wall thickening raising the possibility cystitis. Please correlate. 2. Other details are extremely limited as described above. No other gross abnormality is seen. Diagnostic code #3 This report was dictated in MDT
[2020-04-12] MEDS ORDERED: Ondansetron 4 MG/2 ML SDV IVPUSH PRN (00:34)
[2020-04-12] MEDS ORDERED: Sodium Chloride 0.9% 1,000 ML IV SCH (00:45)
[2020-04-12] MEDS ORDERED: Insuln Aspart Prot/Insulin Aspart 100 Units/ML 3 ML FlexPen SUBCUT SCH (00:45)
[2020-04-12] MEDS ORDERED: Insulin Glargine,Human Rec. Analog 100 Units/ML 3 ML Pen SUBCUT SCH ×2 (01:00→21:00)
[2020-04-12] MEDS: hydrALAZINE 25 MG Tab PO SCH ×4 (01:25→21:22)
[2020-04-12] MEDS ORDERED: Insulin Aspart 100 Units/ML 3 ML Pen SUBCUT ONE (01:52)
[2020-04-12] MEDS: Insulin Aspart 100 Units/ML 3 ML Pen SUBCUT SCH ×6 (01:57→22:11)
[2020-04-12] MEDS ORDERED: Morphine 2 MG/ML SYRINGE IVPUSH PRN (03:12)
[2020-04-12] MEDS: LORazepam 2 MG/ML SDV IVPUSH PRN (03:42)
--- NOTE | 2020-04-12 08:08 | PCM.HP.2 ---
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 He is not talkative this morning, reporting he just has pain and its his normal pain. We discussed his recent GI appointment, he finally showed up to his appointment. Dr Rodgers recommended Reglan 5 mg TIDAC with possibility of increasing to 10 mg, along with Zofran and Phenergan. He was also counseled on controlling his blood sugars and eating low residue diet when exacerbations occur. He denies chest pain. No dyspnea. Reports abdominal pain with burning and nausea. He reports at home he had some bloody emesis. In the ED hgb 9.8, hct 31.2 potassium 5.3 Bi carb 18.3 BUN 30, Cr 2.8 troponin negative. small ketones, negative COVID. CT abd/pelvis revealed bladder wall thickening, no other concerns. UA negative. He was given 2 L LR in the ED along with Haldol, Zofran. He was admitted with mild DKA, gastroparesis and abdominal pain. Dr Infante Abdomen Pain Score (Numeric/FACES): 8 - Related Data Allergies/Adverse Reactions: Allergies Allergy/AdvReac Type Severity Reaction Status Date / Time shrimp Allergy Severe Swelling Verified 04/11/20 23:59 iodine Allergy Unknown Anaphylactic Verified 04/11/20 23:59 Shock Penicillins Allergy Unknown Anaphylactic Verified 04/11/20 23:59 Shock shellfish derived Allergy Anaphylactic Verified 04/11/20 23:59 Shock gluten Allergy Severe Muscle Uncoded 04/11/20 23:59 Aches Home Medications: Home Meds Doxazosin [Cardura] 4 mg PO BEDTIME 09/29/19 [History] Metoprolol Succinate 200 mg PO DAILY 09/29/19 [History] Torsemide 20 mg PO BID 09/29/19 [History] atorvaSTATin [Lipitor] 80 mg PO BEDTIME 09/29/19 [History] Insulin Aspart [NovoLOG] 0 unit SUBCUT .UP TO 60 UN DAILY 09/30/19 [History] Metoclopramide [Reglan] 5 mg PO TIDAC #90 tablet 10/10/19 [Rx] Pantoprazole [ProTONIX] 40 mg PO DAILY #30 tab.cr 10/10/19 [Rx] Aspirin [Adult Low Dose Aspirin EC] 81 mg PO DAILY 12/07/19 [History] Enalapril Maleate 20 mg PO DAILY 12/07/19 [History] Insulin Glarg,Human.Rec.Analog [Lantus] 38 mg SUBCUT BEDTIME 12/07/19 [History] Iron Ag,Ps/C/Fa6/B12/Zn/SA/Sto [Niferex Tablet] 150 mg PO BID 12/07/19 [History] Sertraline [Zoloft] 50 mg PO DAILY 12/07/19 [History] Spironolactone [Aldactone] 25 mg PO BID 12/07/19 [History] Sucralfate 1 gm PO QIDACANDBED 12/07/19 [History] amLODIPine Besylate [Amlodipine Besylate] 10 mg PO DAILY 12/07/19 [History] hydrALAZINE [Apresoline] 25 mg PO TID 12/07/19 [History] hydroCHLOROthiazide [Hydrochlorothiazide] 25 mg PO DAILY 12/07/19 [History] Ondansetron [Zofran ODT] 4 mg PO Q8H PRN 04/12/20 [History] Past Medical History - Past Health History Medical/Surgical History: Denies Medical/Surgical History HEENT History: Reports: Impaired Vision Other HEENT History: blind right eye Cardiovascular History: Reports: Hypertension Respiratory History: Reports: None Gastrointestinal History: Reports: Gastritis, GERD, Hiatal Hernia, Other (See Below) Other Gastrointestinal History: h/o gastric ulcers, h/o hiatal hernia; gastroparesis Genitourinary History: Reports: Chronic Renal Insuffiency, Diabetic Nephropathy Musculoskeletal History: Reports: Amputation Other Musculoskeletal History: RLE Neurological History: Reports: Neuropathy, Peripheral Other Neuro History: stroke Psychiatric History: Reports: Anxiety Endocrine/Metabolic History: Reports: Diabetes, Type I Other Endocrine/Metabolic History: brittle diabetic. History of hyperkalemia and DKA Insulin Pump Model and Sales Program Manager: None Hematologic History: Reports: Anemia Immunologic History: Reports: None Oncologic (Cancer) History: Reports: None Dermatologic History: Reports: Other (See Below) Other Dermatologic History: diabetic foot ulcers - Infectious Disease History Infectious Disease History: Reports: None Other Infectious Disease History: 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 - Past Surgical History Head Surgeries/Procedures: Reports: None HEENT Surgical History: Reports: None Respiratory Surgical History: Reports: None GI Surgical History: Reports: None Male Surgical History: Reports: None Endocrine Surgical History: Reports: None Oncologic Surgical History: Reports: None Dermatological Surgical History: Reports: None Social & Family History - Family History Family Medical History: Noncontributory Cardiac: Reports: High Cholesterol, Hypertension OBGYN: Reports: Neurological: Reports: None Psychiatric: Reports: Anxiety - Tobacco Use Smoking Status *Q: Never Smoker - Caffeine Use Caffeine Use: Reports: Tea Other Caffeine Use: daily Caffeine Use Comment: patient is uncooperated - Recreational Drug Use Recreational Drug Use: No - Living Situation & Occupation Living situation: Reports: Single Occupation: Employed (Currently unemployed.) H&P Review of Systems - Review of Systems: Review Of Systems: See Below General: Reports: No Symptoms. Denies: Fever, Chills Pulmonary: Reports: No Symptoms. Denies: Shortness of Breath Cardiovascular: Reports: No Symptoms. Denies: Chest Pain Gastrointestinal: Reports: Abdominal Pain, Decreased Appetite, Hematemesis, Nausea, Vomiting. Denies: Black Stool, Bloody Stool Genitourinary: Reports: No Symptoms. Denies: Dysuria, Frequency, Burning Skin: Reports: No Symptoms Psychiatric: Reports: No Symptoms Neurological: Reports: No Symptoms Hematologic/Lymphatic: Reports: No Symptoms Immunologic: Reports: No Symptoms Exam - Exam Exam: See Below - Vital Signs Vital Signs: Last Vital Signs Temp 98.2 F 04/12/20 04:19 Pulse 98 04/12/20 05:00 Resp 19 04/12/20 05:00 BP 168/83 H 04/12/20 05:00 Pulse Ox 97 04/12/20 04:19 Weight: 175.7 kg - Exam General: Alert, Oriented, Cooperative HEENT: Conjunctiva Clear, Mucosa Moist & [place], Pupils Equal Lungs: Clear to Auscultation, Normal Respiratory Effort Cardiovascular: Regular Rate, Regular Rhythm GI/Abdominal Exam: Normal Bowel Sounds, Soft, No Distention, Tender (LUQ) Back Exam: Normal Inspection, Full Range of Motion Extremities: Normal Inspection, Normal Range of Motion, Non-Tender, No Pedal Edema Neuro Extensive - Mental Status: Alert, Oriented x3 Neuro Extensive - Motor, Sensory, Reflexes: CN II-XII Intact Psychiatric: Alert, Normal Affect, Normal Mood - Patient Data Lab Results Last 24 hrs: Laboratory Results - last 24 hr 04/11/20 04/11/20 04/11/20 Range/Units 17:19 17:19 17:19 WBC (4.0-11.0) K/uL RBC (4.50-5.90) M/uL Hgb (13.0-17.0) g/dL Hct (38.0-50.0) % MCV (80.0-98.0) fL MCH (27.0-32.0) pg MCHC (31.0-37.0) g/dL RDW Std Deviation (28.0-62.0) fl RDW Coeff of Dania (11.0-15.0) % Plt Count (150-400) K/uL MPV (7.40-12.00) fL Neut % (Auto) (48.0-80.0) % Lymph % (Auto) (16.0-40.0) % [place] % (Auto) (0.0-15.0) % Eos % (Auto) (0.0-7.0) % Baso % (Auto) (0.0-1.5) % Neut # (Auto) (1.4-5.7) K/uL Lymph # (Auto) (0.6-2.4) K/uL [place] # (Auto) (0.0-0.8) K/uL Eos # (Auto) (0.0-0.7) K/uL Baso # (Auto) (0.0-0.1) K/uL Nucleated RBC % /100WBC Nucleated RBCs # K/uL INR 0.92 VBG pH (7.31-7.41) VBG pCO2 (35-45) mmHG VBG pO2 (30-40) mmHG VBG HCO3 (22-30) mEq/L VBG Total CO2 (41-51) mmol/L VBG Base Excess (-3.0-3.0) Lactate 1.8 (0.20-2.00) mmol/L Sodium 137 (136-148) mmol/L Potassium 5.2 H (3.5-5.1) mmol/L Chloride 104 (98-107) mmol/L Carbon Dioxide 18.5 L (21.0-32.0) mmol/L BUN 30 H (7.0-18.0) mg/dL Creatinine 2.8 H (0.8-1.3) mg/dL Est Cr Clr Drug Dosing 36.30 mL/min Estimated GFR (MDRD) 31.8 ml/min Glucose 400 H (74-106) mg/dL POC Glucose (60-110) mg/dL Calcium 8.0 L (8.5-10.1) mg/dL Total Bilirubin 0.3 (0.2-1.0) mg/dL AST 19 (15-37) IU/L ALT 16 (14-63) IU/L Alkaline Phosphatase 100 (46-116) U/L Troponin I < 0.050 (0.000-0.056) ng/mL Total Protein 6.7 (6.4-8.2) g/dL Albumin 2.9 L (3.4-5.0) g/dL Globulin 3.8 (2.6-4.0) g/dL Albumin/Globulin Ratio 0.8 L (0.9-1.6) Lipase 36 L (73-393) U/L Urine Color Urine Appearance Urine pH (5.0-8.0) Ur Specific [place] (1.001-1.035) Urine Protein (NEGATIVE) mg/dL Urine Glucose (UA) (NEGATIVE) mg/dL Urine Ketones (NEGATIVE) mg/dL Urine Occult Blood (NEGATIVE) Urine Nitrite (NEGATIVE) Urine Bilirubin (NEGATIVE) Urine Urobilinogen (<2.0) EU/dL Ur Leukocyte Esterase (NEGATIVE) Ketones (NEG) COVID-19 (BK) (NEGATIVE) 04/11/20 04/11/20 04/11/20 Range/Units 17:19 20:38 20:38 WBC 9.63 (4.0-11.0) K/uL RBC 4.61 (4.50-5.90) M/uL Hgb 9.8 L (13.0-17.0) g/dL Hct 31.2 L (38.0-50.0) % MCV 67.7 L (80.0-98.0) fL MCH 21.3 L (27.0-32.0) pg MCHC 31.4 (31.0-37.0) g/dL RDW Std Deviation 40.0 (28.0-62.0) fl RDW Coeff of Dania 16 H (11.0-15.0) % Plt Count 314 (150-400) K/uL MPV 10.20 (7.40-12.00) fL Neut % (Auto) 73.3 (48.0-80.0) % Lymph % (Auto) 20.0 (16.0-40.0) % [place] % (Auto) 3.6 (0.0-15.0) % Eos % (Auto) 2.6 (0.0-7.0) % Baso % (Auto) 0.5 (0.0-1.5) % Neut # (Auto) 7.1 H (1.4-5.7) K/uL Lymph # (Auto) 1.9 (0.6-2.4) K/uL [place] # (Auto) 0.4 (0.0-0.8) K/uL Eos # (Auto) 0.3 (0.0-0.7) K/uL Baso # (Auto) 0.1 (0.0-0.1) K/uL Nucleated RBC % 0.0 /100WBC Nucleated RBCs # 0 K/uL INR VBG pH 7.33 (7.31-7.41) VBG pCO2 29 L (35-45) mmHG VBG pO2 134 H (30-40) mmHG VBG HCO3 15 L (22-30) mEq/L VBG Total CO2 15 L (41-51) mmol/L VBG Base Excess -9.4 L (-3.0-3.0) Lactate (0.20-2.00) mmol/L Sodium 136 (136-148) mmol/L Potassium 5.3 H (3.5-5.1) mmol/L Chloride 104 (98-107) mmol/L Carbon Dioxide 18.4 L (21.0-32.0) mmol/L BUN 34 H (7.0-18.0) mg/dL Creatinine 2.8 H (0.8-1.3) mg/dL Est Cr Clr Drug Dosing 36.30 mL/min Estimated GFR (MDRD) 31.8 ml/min Glucose 481 H (74-106) mg/dL POC Glucose (60-110) mg/dL Calcium 7.5 L (8.5-10.1) mg/dL Total Bilirubin (0.2-1.0) mg/dL AST (15-37) IU/L ALT (14-63) IU/L Alkaline Phosphatase (46-116) U/L Troponin I (0.000-0.056) ng/mL Total Protein (6.4-8.2) g/dL Albumin (3.4-5.0) g/dL Globulin (2.6-4.0) g/dL Albumin/Globulin Ratio (0.9-1.6) Lipase (73-393) U/L Urine Color Urine Appearance Urine pH (5.0-8.0) Ur Specific [place] (1.001-1.035) Urine Protein (NEGATIVE) mg/dL Urine Glucose (UA) (NEGATIVE) mg/dL Urine Ketones (NEGATIVE) mg/dL Urine Occult Blood (NEGATIVE) Urine Nitrite (NEGATIVE) Urine Bilirubin (NEGATIVE) Urine Urobilinogen (<2.0) EU/dL Ur Leukocyte Esterase (NEGATIVE) Ketones (NEG) COVID-19 (BK) (NEGATIVE) 04/11/20 04/11/20 04/11/20 Range/Units 20:38 22:05 22:47 WBC (4.0-11.0) K/uL RBC (4.50-5.90) M/uL Hgb (13.0-17.0) g/dL Hct (38.0-50.0) % MCV (80.0-98.0) fL MCH (27.0-32.0) pg MCHC (31.0-37.0) g/dL RDW Std Deviation (28.0-62.0) fl RDW Coeff of Dania (11.0-15.0) % Plt Count (150-400) K/uL MPV (7.40-12.00) fL Neut % (Auto) (48.0-80.0) % Lymph % (Auto) (16.0-40.0) % [place] % (Auto) (0.0-15.0) % Eos % (Auto) (0.0-7.0) % Baso % (Auto) (0.0-1.5) % Neut # (Auto) (1.4-5.7) K/uL Lymph # (Auto) (0.6-2.4) K/uL [place] # (Auto) (0.0-0.8) K/uL Eos # (Auto) (0.0-0.7) K/uL Baso # (Auto) (0.0-0.1) K/uL Nucleated RBC % /100WBC Nucleated RBCs # K/uL INR VBG pH (7.31-7.41) VBG pCO2 (35-45) mmHG VBG pO2 (30-40) mmHG VBG HCO3 (22-30) mEq/L VBG Total CO2 (41-51) mmol/L VBG Base Excess (-3.0-3.0) Lactate (0.20-2.00) mmol/L Sodium (136-148) mmol/L Potassium (3.5-5.1) mmol/L Chloride (98-107) mmol/L Carbon Dioxide (21.0-32.0) mmol/L BUN (7.0-18.0) mg/dL Creatinine (0.8-1.3) mg/dL Est Cr Clr Drug Dosing mL/min Estimated GFR (MDRD) ml/min Glucose (74-106) mg/dL POC Glucose > 500 H (60-110) mg/dL Calcium (8.5-10.1) mg/dL Total Bilirubin (0.2-1.0) mg/dL AST (15-37) IU/L ALT (14-63) IU/L Alkaline Phosphatase (46-116) U/L Troponin I (0.000-0.056) ng/mL Total Protein (6.4-8.2) g/dL Albumin (3.4-5.0) g/dL Globulin (2.6-4.0) g/dL Albumin/Globulin Ratio (0.9-1.6) Lipase (73-393) U/L Urine Color YELLOW Urine Appearance CLEAR Urine pH 6.0 (5.0-8.0) Ur Specific [place] 1.020 (1.001-1.035) Urine Protein >=300 H (NEGATIVE) mg/dL Urine Glucose (UA) >=1000 (NEGATIVE) mg/dL Urine Ketones 15 H (NEGATIVE) mg/dL Urine Occult Blood SMALL H (NEGATIVE) Urine Nitrite NEGATIVE (NEGATIVE) Urine Bilirubin NEGATIVE (NEGATIVE) Urine Urobilinogen 0.2 (<2.0) EU/dL Ur Leukocyte Esterase NEGATIVE (NEGATIVE) Ketones SMALL H (NEG) COVID-19 (BK) (NEGATIVE) 04/11/20 04/12/20 04/12/20 Range/Units 22:57 01:17 04:10 WBC (4.0-11.0) K/uL RBC (4.50-5.90) M/uL Hgb (13.0-17.0) g/dL Hct (38.0-50.0) % MCV (80.0-98.0) fL MCH (27.0-32.0) pg MCHC (31.0-37.0) g/dL RDW Std Deviation (28.0-62.0) fl RDW Coeff of Dania (11.0-15.0) % Plt Count (150-400) K/uL MPV (7.40-12.00) fL Neut % (Auto) (48.0-80.0) % Lymph % (Auto) (16.0-40.0) % [place] % (Auto) (0.0-15.0) % Eos % (Auto) (0.0-7.0) % Baso % (Auto) (0.0-1.5) % Neut # (Auto) (1.4-5.7) K/uL Lymph # (Auto) (0.6-2.4) K/uL [place] # (Auto) (0.0-0.8) K/uL Eos # (Auto) (0.0-0.7) K/uL Baso # (Auto) (0.0-0.1) K/uL Nucleated RBC % /100WBC Nucleated RBCs # K/uL INR VBG pH (7.31-7.41) VBG pCO2 (35-45) mmHG VBG pO2 (30-40) mmHG VBG HCO3 (22-30) mEq/L VBG Total CO2 (41-51) mmol/L VBG Base Excess (-3.0-3.0) Lactate (0.20-2.00) mmol/L Sodium (136-148) mmol/L Potassium (3.5-5.1) mmol/L Chloride (98-107) mmol/L Carbon Dioxide (21.0-32.0) mmol/L BUN (7.0-18.0) mg/dL Creatinine (0.8-1.3) mg/dL Est Cr Clr Drug Dosing mL/min Estimated GFR (MDRD) ml/min Glucose (74-106) mg/dL POC Glucose 494 H 374 H (60-110) mg/dL Calcium (8.5-10.1) mg/dL Total Bilirubin (0.2-1.0) mg/dL AST (15-37) IU/L ALT (14-63) IU/L Alkaline Phosphatase (46-116) U/L Troponin I (0.000-0.056) ng/mL Total Protein (6.4-8.2) g/dL Albumin (3.4-5.0) g/dL Globulin (2.6-4.0) g/dL Albumin/Globulin Ratio (0.9-1.6) Lipase (73-393) U/L Urine Color Urine Appearance Urine pH (5.0-8.0) Ur Specific [place] (1.001-1.035) Urine Protein (NEGATIVE) mg/dL Urine Glucose (UA) (NEGATIVE) mg/dL Urine Ketones (NEGATIVE) mg/dL Urine Occult Blood (NEGATIVE) Urine Nitrite (NEGATIVE) Urine Bilirubin (NEGATIVE) Urine Urobilinogen (<2.0) EU/dL Ur Leukocyte Esterase (NEGATIVE) Ketones (NEG) COVID-19 (BK) NEGATIVE (NEGATIVE) Result Diagrams: 04/12/20 10:57 04/12/20 10:57 Sepsis Event Note - Evaluation Sepsis Screening Result: No Definite Risk - Focused Exam Vital Signs: Vital Signs Temp Pulse Resp BP BP Pulse Ox 04/12/20 05:00 98 19 168/83 H 04/12/20 04:19 98.2 F 100 20 225/117 H 97 04/12/20 01:25 251/126 H 04/11/20 23:45 98.1 F 109 H 20 221/117 H 97 04/11/20 22:36 97.4 F 109 H 14 179/100 H 98 Date Exam was Performed: 04/12/20 Time Exam was Performed: 11:55 - Problem List (1) DKA (diabetic ketoacidoses) SNOMED Code(s): 611275484, 153317770 ICD Code: E13.10 - OTH DIABETES MELLITUS WITH KETOACIDOSIS WITHOUT COMA Status: Acute Current Visit: Yes Qualifiers: Diabetes mellitus type: type 1 Diabetes mellitus complication detail: without coma Qualified Code(s): E10.10 - Type 1 diabetes mellitus with ketoacidosis without coma (2) Abdominal pain SNOMED Code(s): 17397358 ICD Code: R10.9 - UNSPECIFIED ABDOMINAL PAIN Status: Acute Priority: High Current Visit: Yes Qualifiers: Abdominal location: generalized Qualified Code(s): R10.84 - Generalized abdominal pain (3) Gastroparesis due to DM SNOMED Code(s): 453387814 ICD Code: E11.43 - TYPE 2 DIABETES W DIABETIC AUTONOMIC (POLY)NEUROPATHY; K31.84 - GASTROPARESIS Status: Acute Current Visit: No (4) Chronic kidney disease (CKD) SNOMED Code(s): 946000160 ICD Code: N18.9 - CHRONIC KIDNEY DISEASE, UNSPECIFIED Status: Chronic Current Visit: No (5) Hyperglycemia due to type 1 diabetes mellitus SNOMED Code(s): 221533765364003, 470011963981209 ICD Code: E10.65 - TYPE 1 DIABETES MELLITUS WITH HYPERGLYCEMIA Status: Chronic Current Visit: No (6) Medical non-compliance SNOMED Code(s): 747619106 ICD Code: Z91.19 - PATIENT'S NONCOMPLIANCE W OTH MEDICAL TREATMENT AND REGIMEN Status: Chronic Current Visit: No (7) Chronic kidney disease, stage 3 (moderate) SNOMED Code(s): 577835042 ICD Code: N18.3 - CHRONIC KIDNEY DISEASE, STAGE 3 (MODERATE) Status: Chronic Priority: High Current Visit: No (8) History of CVA (cerebrovascular accident) SNOMED Code(s): 040234105 ICD Code: Z86.73 - PRSNL HX OF TIA (TIA), AND CEREB INFRC W/O RESID DEFICITS Status: Chronic Current Visit: No (9) History of GI bleed SNOMED Code(s): 343109093 ICD Code: Z87.19 - PERSONAL HISTORY OF OTHER DISEASES OF THE DIGESTIVE SYSTEM Status: Chronic Current Visit: No (10) Hx MRSA infection SNOMED Code(s): 277519686, 565971737 ICD Code: Z86.14 - PERSONAL HISTORY OF METHICILLIN RESIS STAPH INFECTION Status: Chronic Current Visit: No (11) Hx of gastroesophageal reflux (GERD) SNOMED Code(s): 11614453111430 ICD Code: Z87.19 - PERSONAL HISTORY OF OTHER DISEASES OF THE DIGESTIVE SYSTEM Status: Chronic Current Visit: No (12) S/P BKA (below knee amputation) unilateral SNOMED Code(s): 479661561, 20258031, 114214019 ICD Code: Z89.519 - ACQUIRED ABSENCE OF UNSPECIFIED LEG BELOW KNEE Status: Chronic Priority: Medium Current Visit: No (13) Uncontrolled hypertension SNOMED Code(s): 62732846, 44672031 ICD Code: I10 - ESSENTIAL (PRIMARY) HYPERTENSION Status: Chronic Current Visit: No Problem List Initiated/Reviewed/Updated: Yes Orders Last 24hrs: Active Orders 24 hr Category Date Time Status Patient Status [ADT] Routine ADT 04/11/20 22:21 Active Blood Glucose Check, Bedside [RC] Q4H Care 04/12/20 00:34 Active Cardiac Monitoring [RC] . DIRECTED Care 04/11/20 17:16 Active Pulse Oximetry [RC] ASDIRECTED Care 04/11/20 17:16 Active Up ad Ruth [RC] ASDIRECTED Care 04/12/20 00:34 Active Vital Signs [RC] Q4H Care 04/12/20 00:34 Active NPO [Nothing Per Oral Diet] [DIET] Diet 04/12/20 Breakfast Active Insulin Aspart [NovoLOG] Med 04/12/20 01:00 Active See Protocol SUBCUT Q4H Insulin Glarg,Human.Rec.Analog [LantUS Solostar] Med 04/12/20 01:00 Active 38 units SUBCUT BEDTIME LORazepam [Ativan] Med 04/12/20 03:12 Active 1 mg IVPUSH Q4H PRN Metoclopramide [Reglan] Med 04/12/20 07:30 Active 5 mg PO TIDAC Morphine Med 04/12/20 03:12 Active 1 mg IVPUSH Q4H PRN Ondansetron [Zofran] Med 04/12/20 00:34 Active 4 mg IVPUSH Q6H PRN Sodium Chloride 0.9% [Normal Saline] 1,000 ml Med 04/12/20 00:45 Active IV ASDIRECTED Sodium Chloride 0.9% [Saline Flush] Med 04/11/20 17:16 Active 10 ml FLUSH ASDIRECTED PRN Sodium Chloride 0.9% [Saline Flush] Med 04/11/20 17:16 Active 2.5 ml FLUSH ASDIRECTED PRN hydrALAZINE [Apresoline] Med 04/12/20 00:30 Active 25 mg PO TID Saline Lock Insert [OM.PC] Stat Oth 04/11/20 17:16 Ordered Medication Orders Hydralazine HCl (Apresoline) 25 mg PO TID ON LICENSE OF [facility] Last Admin: 04/12/20 01:25 Dose: 25 mg Documented by: TERI Sodium Chloride (Normal Saline) 1,000 mls @ 125 mls/hr IV ASDIRECTED MICHAEL Last Admin: 04/12/20 01:10 Dose: 125 mls/hr Documented by: TERI Insulin Aspart (Novolog) 0 unit SUBCUT Q4H ON LICENSE OF [facility]; Protocol Last Admin: 04/12/20 04:56 Dose: Not Given Documented by: Admin: 04/12/20 01:57 Dose: Not Given Documented by: TERI Insulin Glargine (Lantus Solostar) 38 units SUBCUT BEDTIME MICHAEL Last Admin: 04/12/20 01:17 Dose: 38 units Documented by: TERI Lorazepam (Ativan) 1 mg IVPUSH Q4H PRN PRN Reason: Anxiety Last Admin: 04/12/20 03:42 Dose: 1 mg Documented by: LENORA Metoclopramide HCl (Reglan) 5 mg PO TIDAC MICHAEL Morphine Sulfate (Morphine) 1 mg IVPUSH Q4H PRN PRN Reason: Pain Last Admin: 04/12/20 03:43 Dose: 1 mg Documented by: LENORA Ondansetron HCl (Zofran) 4 mg IVPUSH Q6H PRN PRN Reason: Nausea/Vomiting Last Admin: 04/12/20 01:20 Dose: 4 mg Documented by: TERI Sodium Chloride (Saline Flush) 10 ml FLUSH ASDIRECTED PRN PRN Reason: Keep Vein Open Last Admin: 04/11/20 17:27 Dose: 10 ml Documented by: ARLEY Sodium Chloride (Saline Flush) 2.5 ml FLUSH ASDIRECTED PRN PRN Reason: Keep Vein Open Last Admin: 04/11/20 17:27 Dose: 2.5 ml Documented by: [id number] Assessment/Plan Comment:: This 34 year old male admitted with mild DKA and exacerbation of gastroparesis 1. DKA - Started on SSI every 4 hours, bicarb stable. - Given Lantus 38 units last evening, this morning BS 49 - Continues to be non-complaint and not honest with treatment at home. States he takes full dose Lantus, but then has severe hypoglycemia with administration of state dose - Decrease Lantus to 10 units at bedtime - Monitor BS every 1 hours as he continues to dip under 100 - D5 1/2 NS 150 for now due to hypoglycemia. - Repeat BMP this am, DKA has resolved. Monitor BS closely. 2. Gastroparesis - NPO for now - Morphine PRN - Reglan 5 mg TIDAC - Protonix 40 mg IV BID - Zofran and Phenergan PRN nausea 3. Hematemesis, Hx GERD, PUD: - None since arrival to ED - Repeat HH 8.2 after IVFs - Protonix 40 mg IV BID - Repeat this evening and monitor. 4. HTN - Elevated, restart antihypertensives - Continue Amlodipine, Metoprolol, Hydralazine and monitor - Also takes Enalapril, Doxazosin, and HCTZ 5. CKD: -Stable at baseline VTE prophylaxis: SCDs Dispo: 1-2 days
[2020-04-12] MEDS: Metoclopramide 5 MG Tab PO SCH ×3 (08:18→17:47)
[2020-04-12] MEDS ORDERED: 50% Dextrose in Water 50 ML Syringe IVPUSH ONE ×3 (09:27→12:36)
[2020-04-12] MEDS: amLODIPine 5 MG Tab PO SCH (09:29)
[2020-04-12] MEDS: Metoprolol Succinate 100 MG Tab.ER PO SCH (09:30)
[2020-04-12] MEDS ORDERED: Dextrose 5%-0.45% NaCl 1,000 ML IV SCH (10:15)
[2020-04-12 11:29] LABS: CARBON DIOXIDE,CO2 24.4 mmol/L (21.0-32.0); POTASSIUM,K 4.5 mmol/L (3.5-5.1)
[2020-04-12] MEDS: Dextrose 5%-0.45% NaCl 1,000 ML IV SCH ×4 (11:48→23:24)
[2020-04-12] MEDS: Pantoprazole 40 MG in Sodium Chloride 0.9% 10 ML IV SCH ×2 (12:18→23:26)
[2020-04-12] MEDS ORDERED: 50% Dextrose in Water 50 ML Syringe IVPUSH PRN (12:37)
[2020-04-13] MEDS: LORazepam 2 MG/ML SDV IVPUSH PRN (02:00)
[2020-04-13] MEDS: Insulin Aspart 100 Units/ML 3 ML Pen SUBCUT SCH ×2 (02:00→05:51)
[2020-04-13] MEDS: Dextrose 5%-0.45% NaCl 1,000 ML IV SCH (05:52)
[2020-04-13 05:54] LABS: CARBON DIOXIDE,CO2 22.4 mmol/L (21.0-32.0); POTASSIUM,K 3.9 mmol/L (3.5-5.1)
[2020-04-13] MEDS: hydrALAZINE 25 MG Tab PO SCH (05:58)
[2020-04-13] MEDS ORDERED: Insulin Aspart 100 Units/ML 3 ML Pen SUBCUT SCH (07:30)
[2020-04-13] MEDS: Metoclopramide 5 MG Tab PO SCH (07:53)
[2020-04-13] MEDS: amLODIPine 5 MG Tab PO SCH (08:43)
[2020-04-13] MEDS: Metoprolol Succinate 100 MG Tab.ER PO SCH (08:46)
[2020-04-13 08:47] VITALS: BP 211/123; PULSE 94
[2020-04-13] MEDS ORDERED: Hydrochlorothiazide 25 MG Tab PO SCH (09:00)
--- NOTE | 2020-04-13 12:07 | PCM.DCSUM1 ---
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 He is not talkative this morning, reporting he just has pain and its his normal pain. We discussed his recent GI appointment, he finally showed up to his appointment. Dr Rodgers recommended Reglan 5 mg TIDAC with possibility of increasing to 10 mg, along with Zofran and Phenergan. He was also counseled on controlling his blood sugars and eating low residue diet when exacerbations occur. He denies chest pain. No dyspnea. Reports abdominal pain with burning and nausea. He reports at home he had some bloody emesis. In the ED hgb 9.8, hct 31.2 potassium 5.3 Bi carb 18.3 BUN 30, Cr 2.8 troponin negative. small ketones, negative COVID. CT abd/pelvis revealed bladder wall thickening, no other concerns. UA negative. He was given 2 L LR in the ED along with Haldol, Zofran. He was admitted with mild DKA, gastroparesis and abdominal pain. Diagnosis: Stroke: No - Discharge Data Discharge Date: 04/13/20 Discharge Disposition: Home, Self-Care 01 Condition: Stable - Referral to Home Health Primary Care Physician: PCP None - Discharge Diagnosis/Problem(s) (1) DKA (diabetic ketoacidoses) SNOMED Code(s): 940700979, 061058866 ICD Code: E13.10 - OTH DIABETES MELLITUS WITH KETOACIDOSIS WITHOUT COMA Status: Acute Qualifiers: Diabetes mellitus type: type 1 Diabetes mellitus complication detail: without coma Qualified Code(s): E10.10 - Type 1 diabetes mellitus with ketoacidosis without coma (2) Abdominal pain SNOMED Code(s): 48730650 ICD Code: R10.9 - UNSPECIFIED ABDOMINAL PAIN Status: Acute Priority: High Qualifiers: Abdominal location: generalized Qualified Code(s): R10.84 - Generalized abdominal pain (3) Gastroparesis due to DM SNOMED Code(s): 544077401 ICD Code: E11.43 - TYPE 2 DIABETES W DIABETIC AUTONOMIC (POLY)NEUROPATHY; K31.84 - GASTROPARESIS Status: Acute (4) Chronic kidney disease (CKD) SNOMED Code(s): 528714719 ICD Code: N18.9 - CHRONIC KIDNEY DISEASE, UNSPECIFIED Status: Chronic (5) Hyperglycemia due to type 1 diabetes mellitus SNOMED Code(s): 712144501327633, 230520641692434 ICD Code: E10.65 - TYPE 1 DIABETES MELLITUS WITH HYPERGLYCEMIA Status: Chronic (6) Medical non-compliance SNOMED Code(s): 737631821 ICD Code: Z91.19 - PATIENT'S NONCOMPLIANCE W OTH MEDICAL TREATMENT AND REGIMEN Status: Chronic (7) Chronic kidney disease, stage 3 (moderate) SNOMED Code(s): 069767798 ICD Code: N18.3 - CHRONIC KIDNEY DISEASE, STAGE 3 (MODERATE) Status: Storeroom Attendant marisela Priority: High (8) History of CVA (cerebrovascular accident) SNOMED Code(s): 251161264 ICD Code: Z86.73 - PRSNL HX OF TIA (TIA), AND CEREB INFRC W/O RESID DEFICITS Status: Chronic (9) History of GI bleed SNOMED Code(s): 183411001 ICD Code: Z87.19 - PERSONAL HISTORY OF OTHER DISEASES OF THE DIGESTIVE SYSTEM Status: Chronic (10) Hx MRSA infection SNOMED Code(s): 606395162, 314096480 ICD Code: Z86.14 - PERSONAL HISTORY OF METHICILLIN RESIS STAPH INFECTION Status: Chronic (11) Hx of gastroesophageal reflux (GERD) SNOMED Code(s): 67778566802857 ICD Code: Z87.19 - PERSONAL HISTORY OF OTHER DISEASES OF THE DIGESTIVE SYSTEM Status: Chronic (12) S/P BKA (below knee amputation) unilateral SNOMED Code(s): 675089535, 36356349, 071062113 ICD Code: Z89.519 - ACQUIRED ABSENCE OF UNSPECIFIED LEG BELOW KNEE Status: Chronic Priority: Medium (13) Uncontrolled hypertension SNOMED Code(s): 54609787, 22505010 ICD Code: I10 - ESSENTIAL (PRIMARY) HYPERTENSION Status: Chronic - Patient Summary/Data Hospital Course: Admitting Diagnoses: Mild DKA Gastroparesis Discharge Diagnoses: Mild DKA Gastroparesis Waqas was admitted and treated with IVFs and insulin. He quickly improved in terms of acidosis. He was given 38 units Lantus, which he states he takes, but then had significant hypoglycemia during the day. He was treated with D5 1/2 and Dextrose 50 pushes. Once he was able to tolerate a diet, he then was able to maintain BS without IVfs. He was given reglan and Zofran for nausea along with Protonix. No further emesis. Hgb remained stable. This morning he is alert and doing well. Tolerating diet. He is requesting discharge home. He is stable for discharge. Asked if he needs any medication refills, and he stated he was good. He is to return to ED or clinic if concerns should arise. - Patient Instructions Diet: Diabetic Diet, GI Soft/Low Residue/Low Fiber Activity: As Tolerated, No Strenuous Activities Showering/Bathing: May Shower Notify Provider of: Fever, Increased Pain, Swelling and Redness, Drainage, Nausea and/or Vomiting - Discharge Plan *PRESCRIPTION DRUG MONITORING PROGRAM REVIEWED*: Not Applicable *COPY OF PRESCRIPTION DRUG MONITORING REPORT IN PATIENT IVELISSE: Not Applicable Home Medications: Home Meds Doxazosin [Cardura] 4 mg PO BEDTIME 09/29/19 [History] Metoprolol Succinate 200 mg PO DAILY 09/29/19 [History] Torsemide 20 mg PO BID 09/29/19 [History] atorvaSTATin [Lipitor] 80 mg PO BEDTIME 09/29/19 [History] Insulin Aspart [NovoLOG] 0 unit SUBCUT .UP TO 60 UN DAILY 09/30/19 [History] Metoclopramide [Reglan] 5 mg PO TIDAC #90 tablet 10/10/19 [Rx] Pantoprazole [ProTONIX] 40 mg PO DAILY #30 tab.cr 10/10/19 [Rx] Aspirin [Adult Low Dose Aspirin EC] 81 mg PO DAILY 12/07/19 [History] Enalapril Maleate 20 mg PO DAILY 12/07/19 [History] Insulin Glarg,Human.Rec.Analog [Lantus] 38 mg SUBCUT BEDTIME 12/07/19 [History] Iron Ag,Ps/C/Fa6/B12/Zn/SA/Sto [Niferex Tablet] 150 mg PO BID 12/07/19 [History] Sertraline [Zoloft] 50 mg PO DAILY 12/07/19 [History] Spironolactone [Aldactone] 25 mg PO BID 12/07/19 [History] Sucralfate 1 gm PO QIDACANDBED 12/07/19 [History] amLODIPine Besylate [Amlodipine Besylate] 10 mg PO DAILY 12/07/19 [History] hydrALAZINE [Apresoline] 25 mg PO TID 12/07/19 [History] hydroCHLOROthiazide [Hydrochlorothiazide] 25 mg PO DAILY 12/07/19 [History] Ondansetron [Zofran ODT] 4 mg PO Q8H PRN 04/12/20 [History] Oxygen Therapy Mode: Room Air Patient Handouts: Preventing Hypoglycemia, Nausea and Vomiting, Adult, [id number], Hyperglycemia, [id number], Abdominal Pain, Adult, [id number], Preventing Diabetic Ketoacidosis Referrals: Fitz Infante MD [Physician] - 04/19/20 8:30 am (Arrive 15 minutes early with a photo ID, insurance card, and a mask. ) - Discharge Summary/Plan Comment DC Time >30 min.: No - Patient Data Vitals - Most Recent: Last Vital Signs Temp 99.7 F 04/13/20 07:51 Pulse 94 04/13/20 08:46 Resp 16 04/13/20 04:12 BP 211/123 H 04/13/20 08:46 Pulse Ox 96 04/13/20 08:48 Weight - Most Recent: 175.7 kg I&O - Last 24 hours: Intake & Output 04/12/20 04/13/20 04/13/20 22:59 06:59 14:59 Intake Total 474 1864 Output Total 1000 2025 Balance -526 -161 Lab Results - Last 24 hrs: Laboratory Results - last 24 hr 04/11/20 04/12/20 04/12/20 Range/Units 22:05 12:34 13:36 WBC (4.0-11.0) K/uL RBC (4.50-5.90) M/uL Hgb (13.0-17.0) g/dL Hct (38.0-50.0) % MCV (80.0-98.0) fL MCH (27.0-32.0) pg MCHC (31.0-37.0) g/dL RDW Std Deviation (28.0-62.0) fl RDW Coeff of Dania (11.0-15.0) % Plt Count (150-400) K/uL MPV (7.40-12.00) fL Neut % (Auto) (48.0-80.0) % Lymph % (Auto) (16.0-40.0) % Waller % (Auto) (0.0-15.0) % Eos % (Auto) (0.0-7.0) % Baso % (Auto) (0.0-1.5) % Neut # (Auto) (1.4-5.7) K/uL Lymph # (Auto) (0.6-2.4) K/uL Waller # (Auto) (0.0-0.8) K/uL Eos # (Auto) (0.0-0.7) K/uL Baso # (Auto) (0.0-0.1) K/uL Nucleated RBC % /100WBC Nucleated RBCs # K/uL Sodium (136-148) mmol/L Potassium (3.5-5.1) mmol/L Chloride (98-107) mmol/L Carbon Dioxide (21.0-32.0) mmol/L BUN (7.0-18.0) mg/dL Creatinine (0.8-1.3) mg/dL Est Cr Clr Drug Dosing mL/min Estimated GFR (MDRD) ml/min Glucose (74-106) mg/dL POC Glucose 59 L 95 (60-110) mg/dL Calcium (8.5-10.1) mg/dL Urine Opiates Screen NEGATIVE (NEGATIVE) Ur Oxycodone Screen NEGATIVE (NEGATIVE) Urine Methadone Screen NEGATIVE (NEGATIVE) Ur Barbiturates Screen NEGATIVE (NEGATIVE) Ur Phencyclidine Scrn NEGATIVE (NEGATIVE) Ur Amphetamine Screen NEGATIVE (NEGATIVE) U Methamphetamines Scrn POSITIVE (NEGATIVE) U Benzodiazepines Scrn NEGATIVE (NEGATIVE) U Cocaine Metab Screen NEGATIVE (NEGATIVE) U Marijuana (THC) Screen POSITIVE (NEGATIVE) 04/12/20 04/12/20 04/12/20 Range/Units 14:36 15:08 15:32 WBC (4.0-11.0) K/uL RBC (4.50-5.90) M/uL Hgb (13.0-17.0) g/dL Hct (38.0-50.0) % MCV (80.0-98.0) fL MCH (27.0-32.0) pg MCHC (31.0-37.0) g/dL RDW Std Deviation (28.0-62.0) fl RDW Coeff of Dania (11.0-15.0) % Plt Count (150-400) K/uL MPV (7.40-12.00) fL Neut % (Auto) (48.0-80.0) % Lymph % (Auto) (16.0-40.0) % Waller % (Auto) (0.0-15.0) % Eos % (Auto) (0.0-7.0) % Baso % (Auto) (0.0-1.5) % Neut # (Auto) (1.4-5.7) K/uL Lymph # (Auto) (0.6-2.4) K/uL Waller # (Auto) (0.0-0.8) K/uL Eos # (Auto) (0.0-0.7) K/uL Baso # (Auto) (0.0-0.1) K/uL Nucleated RBC % /100WBC Nucleated RBCs # K/uL Sodium (136-148) mmol/L Potassium (3.5-5.1) mmol/L Chloride (98-107) mmol/L Carbon Dioxide (21.0-32.0) mmol/L BUN (7.0-18.0) mg/dL Creatinine (0.8-1.3) mg/dL Est Cr Clr Drug Dosing mL/min Estimated GFR (MDRD) ml/min Glucose (74-106) mg/dL POC Glucose 58 L 79 94 (60-110) mg/dL Calcium (8.5-10.1) mg/dL Urine Opiates Screen (NEGATIVE) Ur Oxycodone Screen (NEGATIVE) Urine Methadone Screen (NEGATIVE) Ur Barbiturates Screen (NEGATIVE) Ur Phencyclidine Scrn (NEGATIVE) Ur Amphetamine Screen (NEGATIVE) U Methamphetamines Scrn (NEGATIVE) U Benzodiazepines Scrn (NEGATIVE) U Cocaine Metab Screen (NEGATIVE) U Marijuana (THC) Screen (NEGATIVE) 04/12/20 04/12/20 04/12/20 Range/Units 16:34 17:25 18:25 WBC (4.0-11.0) K/uL RBC (4.50-5.90) M/uL Hgb 8.5 L (13.0-17.0) g/dL Hct 27.0 L (38.0-50.0) % MCV (80.0-98.0) fL MCH (27.0-32.0) pg MCHC (31.0-37.0) g/dL RDW Std Deviation (28.0-62.0) fl RDW Coeff of Dania (11.0-15.0) % Plt Count (150-400) K/uL MPV (7.40-12.00) fL Neut % (Auto) (48.0-80.0) % Lymph % (Auto) (16.0-40.0) % Waller % (Auto) (0.0-15.0) % Eos % (Auto) (0.0-7.0) % Baso % (Auto) (0.0-1.5) % Neut # (Auto) (1.4-5.7) K/uL Lymph # (Auto) (0.6-2.4) K/uL Waller # (Auto) (0.0-0.8) K/uL Eos # (Auto) (0.0-0.7) K/uL Baso # (Auto) (0.0-0.1) K/uL Nucleated RBC % /100WBC Nucleated RBCs # K/uL Sodium (136-148) mmol/L Potassium (3.5-5.1) mmol/L Chloride (98-107) mmol/L Carbon Dioxide (21.0-32.0) mmol/L BUN (7.0-18.0) mg/dL Creatinine (0.8-1.3) mg/dL Est Cr Clr Drug Dosing mL/min Estimated GFR (MDRD) ml/min Glucose (74-106) mg/dL POC Glucose 143 H 123 H (60-110) mg/dL Calcium (8.5-10.1) mg/dL Urine Opiates Screen (NEGATIVE) Ur Oxycodone Screen (NEGATIVE) Urine Methadone Screen (NEGATIVE) Ur Barbiturates Screen (NEGATIVE) Ur Phencyclidine Scrn (NEGATIVE) Ur Amphetamine Screen (NEGATIVE) U Methamphetamines Scrn (NEGATIVE) U Benzodiazepines Scrn (NEGATIVE) U Cocaine Metab Screen (NEGATIVE) U Marijuana (THC) Screen (NEGATIVE) 04/12/20 04/12/20 04/12/20 Range/Units 18:30 19:29 20:33 WBC (4.0-11.0) K/uL RBC (4.50-5.90) M/uL Hgb (13.0-17.0) g/dL Hct (38.0-50.0) % MCV (80.0-98.0) fL MCH (27.0-32.0) pg MCHC (31.0-37.0) g/dL RDW Std Deviation (28.0-62.0) fl RDW Coeff of Dania (11.0-15.0) % Plt Count (150-400) K/uL MPV (7.40-12.00) fL Neut % (Auto) (48.0-80.0) % Lymph % (Auto) (16.0-40.0) % Waller % (Auto) (0.0-15.0) % Eos % (Auto) (0.0-7.0) % Baso % (Auto) (0.0-1.5) % Neut # (Auto) (1.4-5.7) K/uL Lymph # (Auto) (0.6-2.4) K/uL Waller # (Auto) (0.0-0.8) K/uL Eos # (Auto) (0.0-0.7) K/uL Baso # (Auto) (0.0-0.1) K/uL Nucleated RBC % /100WBC Nucleated RBCs # K/uL Sodium (136-148) mmol/L Potassium (3.5-5.1) mmol/L Chloride (98-107) mmol/L Carbon Dioxide (21.0-32.0) mmol/L BUN (7.0-18.0) mg/dL Creatinine (0.8-1.3) mg/dL Est Cr Clr Drug Dosing mL/min Estimated GFR (MDRD) ml/min Glucose (74-106) mg/dL POC Glucose 160 H 147 H 120 H (60-110) mg/dL Calcium (8.5-10.1) mg/dL Urine Opiates Screen (NEGATIVE) Ur Oxycodone Screen (NEGATIVE) Urine Methadone Screen (NEGATIVE) Ur Barbiturates Screen (NEGATIVE) Ur Phencyclidine Scrn (NEGATIVE) Ur Amphetamine Screen (NEGATIVE) U Methamphetamines Scrn (NEGATIVE) U Benzodiazepines Scrn (NEGATIVE) U Cocaine Metab Screen (NEGATIVE) U Marijuana (THC) Screen (NEGATIVE) 04/12/20 04/12/20 04/12/20 Range/Units 21:32 22:33 23:33 WBC (4.0-11.0) K/uL RBC (4.50-5.90) M/uL Hgb (13.0-17.0) g/dL Hct (38.0-50.0) % MCV (80.0-98.0) fL MCH (27.0-32.0) pg MCHC (31.0-37.0) g/dL RDW Std Deviation (28.0-62.0) fl RDW Coeff of Dania (11.0-15.0) % Plt Count (150-400) K/uL MPV (7.40-12.00) fL Neut % (Auto) (48.0-80.0) % Lymph % (Auto) (16.0-40.0) % Waller % (Auto) (0.0-15.0) % Eos % (Auto) (0.0-7.0) % Baso % (Auto) (0.0-1.5) % Neut # (Auto) (1.4-5.7) K/uL Lymph # (Auto) (0.6-2.4) K/uL Waller # (Auto) (0.0-0.8) K/uL Eos # (Auto) (0.0-0.7) K/uL Baso # (Auto) (0.0-0.1) K/uL Nucleated RBC % /100WBC Nucleated RBCs # K/uL Sodium (136-148) mmol/L Potassium (3.5-5.1) mmol/L Chloride (98-107) mmol/L Carbon Dioxide (21.0-32.0) mmol/L BUN (7.0-18.0) mg/dL Creatinine (0.8-1.3) mg/dL Est Cr Clr Drug Dosing mL/min Estimated GFR (MDRD) ml/min Glucose (74-106) mg/dL POC Glucose 103 105 127 H (60-110) mg/dL Calcium (8.5-10.1) mg/dL Urine Opiates Screen (NEGATIVE) Ur Oxycodone Screen (NEGATIVE) Urine Methadone Screen (NEGATIVE) Ur Barbiturates Screen (NEGATIVE) Ur Phencyclidine Scrn (NEGATIVE) Ur Amphetamine Screen (NEGATIVE) U Methamphetamines Scrn (NEGATIVE) U Benzodiazepines Scrn (NEGATIVE) U Cocaine Metab Screen (NEGATIVE) U Marijuana (THC) Screen (NEGATIVE) 04/13/20 04/13/20 04/13/20 Range/Units 00:34 01:40 02:41 WBC (4.0-11.0) K/uL RBC (4.50-5.90) M/uL Hgb (13.0-17.0) g/dL Hct (38.0-50.0) % MCV (80.0-98.0) fL MCH (27.0-32.0) pg MCHC (31.0-37.0) g/dL RDW Std Deviation (28.0-62.0) fl RDW Coeff of Dania (11.0-15.0) % Plt Count (150-400) K/uL MPV (7.40-12.00) fL Neut % (Auto) (48.0-80.0) % Lymph % (Auto) (16.0-40.0) % Waller % (Auto) (0.0-15.0) % Eos % (Auto) (0.0-7.0) % Baso % (Auto) (0.0-1.5) % Neut # (Auto) (1.4-5.7) K/uL Lymph # (Auto) (0.6-2.4) K/uL Waller # (Auto) (0.0-0.8) K/uL Eos # (Auto) (0.0-0.7) K/uL Baso # (Auto) (0.0-0.1) K/uL Nucleated RBC % /100WBC Nucleated RBCs # K/uL Sodium (136-148) mmol/L Potassium (3.5-5.1) mmol/L Chloride (98-107) mmol/L Carbon Dioxide (21.0-32.0) mmol/L BUN (7.0-18.0) mg/dL Creatinine (0.8-1.3) mg/dL Est Cr Clr Drug Dosing mL/min Estimated GFR (MDRD) ml/min Glucose (74-106) mg/dL POC Glucose 143 H 165 H 179 H (60-110) mg/dL Calcium (8.5-10.1) mg/dL Urine Opiates Screen (NEGATIVE) Ur Oxycodone Screen (NEGATIVE) Urine Methadone Screen (NEGATIVE) Ur Barbiturates Screen (NEGATIVE) Ur Phencyclidine Scrn (NEGATIVE) Ur Amphetamine Screen (NEGATIVE) U Methamphetamines Scrn (NEGATIVE) U Benzodiazepines Scrn (NEGATIVE) U Cocaine Metab Screen (NEGATIVE) U Marijuana (THC) Screen (NEGATIVE) 04/13/20 04/13/20 04/13/20 Range/Units 03:37 04:37 05:28 WBC (4.0-11.0) K/uL RBC (4.50-5.90) M/uL Hgb (13.0-17.0) g/dL Hct (38.0-50.0) % MCV (80.0-98.0) fL MCH (27.0-32.0) pg MCHC (31.0-37.0) g/dL RDW Std Deviation (28.0-62.0) fl RDW Coeff of Dania (11.0-15.0) % Plt Count (150-400) K/uL MPV (7.40-12.00) fL Neut % (Auto) (48.0-80.0) % Lymph % (Auto) (16.0-40.0) % Waller % (Auto) (0.0-15.0) % Eos % (Auto) (0.0-7.0) % Baso % (Auto) (0.0-1.5) % Neut # (Auto) (1.4-5.7) K/uL Lymph # (Auto) (0.6-2.4) K/uL Waller # (Auto) (0.0-0.8) K/uL Eos # (Auto) (0.0-0.7) K/uL Baso # (Auto) (0.0-0.1) K/uL Nucleated RBC % /100WBC Nucleated RBCs # K/uL Sodium (136-148) mmol/L Potassium (3.5-5.1) mmol/L Chloride (98-107) mmol/L Carbon Dioxide (21.0-32.0) mmol/L BUN (7.0-18.0) mg/dL Creatinine (0.8-1.3) mg/dL Est Cr Clr Drug Dosing mL/min Estimated GFR (MDRD) ml/min Glucose (74-106) mg/dL POC Glucose 174 H 174 H 183 H (60-110) mg/dL Calcium (8.5-10.1) mg/dL Urine Opiates Screen (NEGATIVE) Ur Oxycodone Screen (NEGATIVE) Urine Methadone Screen (NEGATIVE) Ur Barbiturates Screen (NEGATIVE) Ur Phencyclidine Scrn (NEGATIVE) Ur Amphetamine Screen (NEGATIVE) U Methamphetamines Scrn (NEGATIVE) U Benzodiazepines Scrn (NEGATIVE) U Cocaine Metab Screen (NEGATIVE) U Marijuana (THC) Screen (NEGATIVE) 04/13/20 04/13/20 04/13/20 Range/Units 05:30 05:30 07:57 WBC 9.60 (4.0-11.0) K/uL RBC 4.10 L (4.50-5.90) M/uL Hgb 8.6 L (13.0-17.0) g/dL Hct 27.5 L (38.0-50.0) % MCV 67.1 L (80.0-98.0) fL MCH 21.0 L (27.0-32.0) pg MCHC 31.3 (31.0-37.0) g/dL RDW Std Deviation 38.8 (28.0-62.0) fl RDW Coeff of Dania 16 H (11.0-15.0) % Plt Count 295 (150-400) K/uL MPV 10.40 (7.40-12.00) fL Neut % (Auto) 66.7 (48.0-80.0) % Lymph % (Auto) 24.5 (16.0-40.0) % Waller % (Auto) 6.3 (0.0-15.0) % Eos % (Auto) 2.1 (0.0-7.0) % Baso % (Auto) 0.4 (0.0-1.5) % Neut # (Auto) 6.4 H (1.4-5.7) K/uL Lymph # (Auto) 2.4 (0.6-2.4) K/uL Waller # (Auto) 0.6 (0.0-0.8) K/uL Eos # (Auto) 0.2 (0.0-0.7) K/uL Baso # (Auto) 0.0 (0.0-0.1) K/uL Nucleated RBC % 0.0 /100WBC Nucleated RBCs # 0 K/uL Sodium 138 (136-148) mmol/L Potassium 3.9 (3.5-5.1) mmol/L Chloride 107 (98-107) mmol/L Carbon Dioxide 22.4 (21.0-32.0) mmol/L BUN 25 H (7.0-18.0) mg/dL Creatinine 2.6 H (0.8-1.3) mg/dL Est Cr Clr Drug Dosing 39.10 mL/min Estimated GFR (MDRD) 34.6 ml/min Glucose 174 H (74-106) mg/dL POC Glucose 170 H (60-110) mg/dL Calcium 7.4 L (8.5-10.1) mg/dL Urine Opiates Screen (NEGATIVE) Ur Oxycodone Screen (NEGATIVE) Urine Methadone Screen (NEGATIVE) Ur Barbiturates Screen (NEGATIVE) Ur Phencyclidine Scrn (NEGATIVE) Ur Amphetamine Screen (NEGATIVE) U Methamphetamines Scrn (NEGATIVE) U Benzodiazepines Scrn (NEGATIVE) U Cocaine Metab Screen (NEGATIVE) U Marijuana (THC) Screen (NEGATIVE) Med Orders - Current: Current Medications Discontinued Medications Amlodipine Besylate (Norvasc) 10 mg PO DAILY [facility] Last Admin: 04/13/20 08:43 Dose: 10 mg Documented by: Dextrose/Water (Dextrose 50% In Water) 50 ml IVPUSH ONETIME ONE Stop: 04/12/20 09:28 Last Admin: 04/12/20 09:33 Dose: 50 ml Documented by: Dextrose/Water (Dextrose 50% In Water) 50 ml IVPUSH ONETIME ONE Stop: 04/12/20 10:21 Last Admin: 04/12/20 10:38 Dose: 50 ml Documented by: Dextrose/Water (Dextrose 50% In Water) 50 ml IVPUSH ONETIME ONE Stop: 04/12/20 12:37 Last Admin: 04/12/20 12:45 Dose: 50 ml Documented by: Dextrose/Water (Dextrose 50% In Water) 50 ml IVPUSH ASDIRECTED PRN PRN Reason: Hypoglycemia Enalapril Maleate (Vasotec) 20 mg PO DAILY [facility] Last Admin: 04/13/20 08:46 Dose: 20 mg Documented by: Haloperidol Lactate (Haldol) 10 mg IM ONETIME ONE Stop: 04/11/20 17:22 Last Admin: 04/11/20 17:28 Dose: 10 mg Documented by: Hydralazine HCl (Apresoline) 25 mg PO TID [facility] Last Admin: 04/13/20 05:58 Dose: 25 mg Documented by: Hydrochlorothiazide (Hydrochlorothiazide) 25 mg PO DAILY [facility] Last Admin: 04/13/20 08:43 Dose: 25 mg Documented by: Lactated Ringer's (Ringers, Lactated) 1,000 mls @ 999 mls/hr IV .BOLUS ONE Stop: 04/11/20 18:16 Last Admin: 04/11/20 17:24 Dose: 999 mls/hr Documented by: Lactated Ringer's (Ringers, Lactated) 1,000 mls @ 999 mls/hr IV .BOLUS ONE Stop: 04/11/20 21:02 Last Admin: 04/11/20 20:28 Dose: 999 mls/hr Documented by: Sodium Chloride (Normal Saline) 1,000 mls @ 1,000 mls/hr IV BOLUS ONE Stop: 04/11/20 22:20 Last Admin: 04/12/20 05:02 Dose: Not Given Documented by: Sodium Chloride (Normal Saline) 1,000 mls @ 125 mls/hr IV ASDIRECTED [facility] Last Admin: 04/12/20 01:10 Dose: 125 mls/hr Documented by: Dextrose/Sodium Chloride (Dextrose 5%-1/2 Ns) 1,000 mls @ 125 mls/hr IV Q8H [facility] Last Admin: 04/12/20 10:17 Dose: 125 mls/hr Documented by: Dextrose/Sodium Chloride (Dextrose 5%-1/2 Ns) 1,000 mls @ 150 mls/hr IV Q6H [facility] Stop: 04/13/20 05:45 Last Admin: 04/13/20 05:52 Dose: Not Given Documented by: Pantoprazole Sodium 40 mg/ (Sodium Chloride) 10 mls @ 300 mls/hr IV Q12H [facility] Last Admin: 04/12/20 23:26 Dose: 300 mls/hr Documented by: Insulin Aspart (Novolog) 0 unit SUBCUT Q4H [facility]; Protocol Last Admin: 04/13/20 05:51 Dose: Not Given Documented by: Insulin Aspart (Novolog) 8 unit SUBCUT NOW ONE Stop: 04/12/20 01:53 Last Admin: 04/12/20 02:03 Dose: 8 units Documented by: Insulin Aspart (Novolog) 4 unit SUBCUT ONETIME ONE Stop: 04/12/20 04:37 Last Admin: 04/12/20 04:55 Dose: 4 units Documented by: Insulin Aspart (Novolog) 0 unit SUBCUT QIDACANDBED [facility]; Protocol Last Admin: 04/13/20 07:59 Dose: 2 units Documented by: Insulin Glargine (Lantus Solostar) 38 units SUBCUT BEDTIME [facility] Last Admin: 04/12/20 01:17 Dose: 38 units Documented by: Insulin Glargine (Lantus Solostar) 10 units SUBCUT BEDTIME [facility] Insulin Human Regular (Novolin R) 10 unit IVPUSH ONETIME ONE; Protocol Stop: 04/11/20 21:21 Last Admin: 04/11/20 22:46 Dose: 10 unit Documented by: Lorazepam (Ativan) 1 mg IVPUSH Q4H PRN PRN Reason: Anxiety Last Admin: 04/13/20 02:00 Dose: 1 mg Documented by: Metoclopramide HCl (Reglan) 5 mg PO TIDAC [facility] Last Admin: 04/13/20 07:53 Dose: 5 mg Documented by: Metoprolol Succinate (Toprol Xl) 200 mg PO DAILY [facility] Last Admin: 04/13/20 08:46 Dose: 200 mg Documented by: Morphine Sulfate (Morphine) 1 mg IVPUSH Q4H PRN PRN Reason: Pain Last Admin: 04/12/20 03:43 Dose: 1 mg Documented by: Ondansetron HCl (Zofran) 4 mg IVPUSH Q6H PRN PRN Reason: Nausea/Vomiting Last Admin: 04/12/20 01:20 Dose: 4 mg Documented by: Sodium Chloride (Saline Flush) 10 ml FLUSH ASDIRECTED PRN PRN Reason: Keep Vein Open Last Admin: 04/11/20 17:27 Dose: 10 ml Documented by: Sodium Chloride (Saline Flush) 2.5 ml FLUSH ASDIRECTED PRN PRN Reason: Keep Vein Open Last Admin: 04/11/20 17:27 Dose: 2.5 ml Documented by: - Exam General: Reports: Alert, Oriented, Cooperative, No Acute Distress Lungs: Reports: Clear to Auscultation, Normal Respiratory Effort Cardiovascular: Reports: Regular Rate, Regular Rhythm GI/Abdominal Exam: Normal Bowel Sounds, Soft, Non-Tender Extremities: Normal Inspection, Normal Range of Motion, Non-Tender, No Pedal Edema Neurological: Reports: No New Focal Deficit Psy/Mental Status: Reports: Alert, Normal Affect, Normal Mood
== END 2020-04-13 09:54 | disposition home or self-care (01) ==
LOC: MW.ED 17:13 → MW.MS 22:22
PROVIDERS: ADMIT Internal Medicine; ATTEND Internal Medicine
DX: E10.10 Type 1 diabetes mellitus with ketoacidosis without coma (principal); E10.43 Type 1 diabetes mellitus with diabetic autonomic (poly)neuropathy; K31.84 Gastroparesis; E10.22 Type 1 diabetes mellitus with diabetic chronic kidney disease; I12.9 Hypertensive chronic kidney disease with stage 1 through stage 4 chronic kidney disease, or unspecified chronic kidney disease; N18.3 Chronic kidney disease, stage 3 (moderate); K21.9 Gastro-esophageal reflux disease without esophagitis; E10.40 Type 1 diabetes mellitus with diabetic neuropathy, unspecified; D63.1 Anemia in chronic kidney disease; K92.0 Hematemesis; Z20.828 Contact with and (suspected) exposure to other viral communicable diseases; Z86.73 Personal history of transient ischemic attack (TIA), and cerebral infarction without residual deficits; Z87.19 Personal history of other diseases of the digestive system; Z86.14 Personal history of Methicillin resistant Staphylococcus aureus infection; Z89.519 Acquired absence of unspecified leg below knee; Z87.11 Personal history of peptic ulcer disease; Z91.19 Patient's noncompliance with other medical treatment and regimen; Z79.84 Long term (current) use of oral hypoglycemic drugs; Z86.31 Personal history of diabetic foot ulcer
CPT/HCPCS: 36415; 74176; 80048; 80053; 80305; 81003; 82009; 82803; 82962; 83605; 83690; 84484; 85014; 85018; 85025; 85610; 87635; 96360; 96361; 96372; 96374; 96375; 96376; 99285; A9270; C9113; G0378; J1630; J1815; J2060; J2270; J2405; J7030; J7042; J7050; J7120; 99284; U0002

== ENCOUNTER 2020-04-25 06:07 | Emergency (ER) | payer MEDICAID ==
[2020-04-25] MEDS ORDERED: Sodium Chloride 0.9% 2.5 ML Syringe FLUSH PRN (06:36)
[2020-04-25] MEDS ORDERED: Sodium Chloride 0.9% 1,000 ML IV ONE (06:36)
[2020-04-25] MEDS ORDERED: Ondansetron 4 MG/2 ML SDV IVPUSH ONE ×2 (06:36→09:42)
[2020-04-25] MEDS ORDERED: Sodium Chloride 0.9% 10 ML Syringe FLUSH PRN (06:36)
[2020-04-25] MEDS ORDERED: HYDROmorphone 1 MG/ML Syringe IVPUSH ONE (06:37)
[2020-04-25] MEDS ORDERED: Haloperidol Lactate 5 MG/ML SDV IM ONE (06:37)
[2020-04-25] MEDS ORDERED: diphenhydrAMINE 50 MG/ML SDV ONE (06:46)
[2020-04-25] MEDS ORDERED: diphenhydrAMINE 50 MG/ML SDV IVPUSH ONE (06:46)
--- NOTE | 2020-04-25 06:49 | EDM.PDOC ---
<Chirag Horta - Last Filed: 04/25/20 07:08> ED HPI GENERAL MEDICAL PROBLEM - General Chief Complaint: Gastrointestinal Problem Stated Complaint: NAUSEA Time Seen by Provider: 04/25/20 06:30 - History of Present Illness INITIAL COMMENTS - FREE TEXT/NARRATIVE: HISTORY AND PHYSICAL: History of present illness: This is a 35-year-old gentleman with history significant for insulin-dependent diabetes, multiple episodes of DKA requiring admissions, hypertension, chronic renal insufficiency, cyclic vomiting syndrome, gastritis, diabetic gastroparesis, who presents the ER today secondary to what he reports is a typical flareup of his gastroparesis. Patient reports that he has severe mid epigastric abdominal pain similar to his prior gastroparesis episodes. Patient reports that the pain started late last night through the morning. Patient reports that he has been compliant with his insulin regimen and diet up until this morning when he did not take his morning insulin dose because of his multiple episodes of vomiting. Patient denies any recent fevers, shakes, chills. Patient denies any diarrhea. Patient denies any dysuria frequency urgency. Patient does admit to multiple episodes of nausea and vomiting with coffee-ground emesis which is typical to his episodes of gastroparesis. Patient reports his last flareup was approximately 2 weeks ago that required admission to the hospital. Patient reports he last checked his blood sugar approximately 1 hour ago and it was 205. Review of systems: As per history of present illness and below otherwise all systems reviewed and negative. Past medical history: As per history of present illness and as reviewed below otherwise noncontributory. Surgical history: As per history of present illness and as reviewed below otherwise noncontrib utory. Social history: No reported history of drug or alcohol abuse. Family history: As per history of present illness and as reviewed below otherwise noncontributory. Physical exam: This is a well-developed well-nourished 35-year-old gentleman who appears to be in moderate discomfort, laying in bed moaning secondary to his abdominal pain. HEENT: Atraumatic, normocephalic, pupils reactive, negative for conjunctival pallor or scleral icterus, dry mucous membranes, throat clear, neck supple, nontender, trachea midline. Lungs: Clear to auscultation, breath sounds equal bilaterally, chest nontender. Heart: S1S2, regular, Abd: Soft, nondistended, no rebound/guarding, no psoas or obturator signs, no tenderness at Mcberney's point, no Interiano's sign. Pt does not present with an exam that would be consistent with an acute surgical abdomen at this time, diffuse tenderness palpation greatest in the midepigastric region and left upper quadrant. Pelvis: Stable nontender. Genitourinary: Deferred. Rectal: Deferred. Extremities: Atraumatic, negative for cords or calf pain. Neurovascular unremarkable. Neuro: Awake, alert, oriented. Cranial nerves II through XII unremarkable. Cerebellum unremarkable. Motor and sensory unremarkable throughout. Exam nonfocal. Diagnostics: EKG: Normal sinus tachycardia heart rate of [address]-T wave abnormalities Normal axis No evidence of ST elevation ND As interpreted by ER physician: Rula Vogel: [] Assessment and plan: This is a 35-year-old gentleman who presents the ER today with abdominal pain with nausea vomiting typical to what he describes as his gastroparesis flareups. Patient does have a history of insulin-dependent diabetes and has had multiple admissions for DKA in the past. Patient's labs today are not consistent with diabetic ketoacidosis. Patient does not have an anion gap, patient's venous blood gas reveals no significant acidosis, patient's ketones are negative. Patient's physical exam is significant for tenderness to palpation diffusely through his abdomen but greatest in the left upper quadrant. Patient reports again that this is typical for his gastroparesis flareups. Upon presentation to the ED, the patient was given Haldol 5 mg IM Benadryl 50 mg IV, Zofran 4 mg IV and NSS was initiated. Patient does admit to coffee-ground emesis and was started on Protonix 40 mg IV. 7:15 AM: Care signed out to Dr. Harris Definitive disposition and diagnosis as appropriate pending reevaluation and review of above. Abdomen Pain Score (Numeric/FACES): 8 - Related Data Allergies Allergy/AdvReac Type Severity Reaction Status Date / Time shrimp Allergy Severe Swelling Verified 04/25/20 06:14 iodine Allergy Unknown Anaphylactic Verified 04/25/20 06:14 Shock Penicillins Allergy Unknown Anaphylactic Verified 04/25/20 06:14 Shock shellfish derived Allergy Anaphylactic Verified 04/25/20 06:14 Shock gluten Allergy Severe Muscle Uncoded 04/25/20 06:14 Aches Home Meds: Home Meds Doxazosin [Cardura] 4 mg PO BEDTIME 09/29/19 [History] Metoprolol Succinate 200 mg PO DAILY 09/29/19 [History] Torsemide 20 mg PO BID 09/29/19 [History] atorvaSTATin [Lipitor] 80 mg PO BEDTIME 09/29/19 [History] Insulin Aspart [NovoLOG] 0 unit SUBCUT .UP TO 60 UN DAILY 09/30/19 [History] Metoclopramide [Reglan] 5 mg PO TIDAC #90 tablet 10/10/19 [Rx] Pantoprazole [ProTONIX] 40 mg PO DAILY #30 tab.cr 10/10/19 [Rx] Aspirin [Adult Low Dose Aspirin EC] 81 mg PO DAILY 12/07/19 [History] Enalapril Maleate 20 mg PO DAILY 12/07/19 [History] Insulin Glarg,Human.Rec.Analog [Lantus] 38 mg SUBCUT BEDTIME 12/07/19 [History] Iron Ag,Ps/C/Fa6/B12/Zn/SA/Sto [Niferex Tablet] 150 mg PO BID 12/07/19 [History] Sertraline [Zoloft] 50 mg PO DAILY 12/07/19 [History] Spironolactone [Aldactone] 25 mg PO BID 12/07/19 [History] Sucralfate 1 gm PO QIDACANDBED 12/07/19 [History] amLODIPine Besylate [Amlodipine Besylate] 10 mg PO DAILY 12/07/19 [History] hydrALAZINE [Apresoline] 25 mg PO TID 12/07/19 [History] hydroCHLOROthiazide [Hydrochlorothiazide] 25 mg PO DAILY 12/07/19 [History] Ondansetron [Zofran ODT] 4 mg PO Q8H PRN 04/12/20 [History] Past Medical History - Past Health History Medical/Surgical History: Denies Medical/Surgical History HEENT History: Reports: Impaired Vision Other HEENT History: blind right eye Cardiovascular History: Reports: Hypertension Respiratory History: Reports: None Gastrointestinal History: Reports: Gastritis, GERD, Hiatal Hernia, Other (See Below) Other Gastrointestinal History: h/o gastric ulcers, h/o hiatal hernia; gastroparesis Genitourinary History: Reports: Chronic Renal Insuffiency, Diabetic Nephropathy Musculoskeletal History: Reports: Amputation Other Musculoskeletal History: RLE Neurological History: Reports: Neuropathy, Peripheral Other Neuro History: stroke Psychiatric History: Reports: Anxiety Endocrine/Metabolic History: Reports: Diabetes, Type I Other Endocrine/Metabolic History: brittle diabetic. History of hyperkalemia and DKA Insulin Pump Model and Dehydrogenation Converter Operator: None Hematologic History: Reports: Anemia Immunologic History: Reports: None Oncologic (Cancer) History: Reports: None Dermatologic History: Reports: Other (See Below) Other Dermatologic History: diabetic foot ulcers - Infectious Disease History Infectious Disease History: Reports: None Other Infectious Disease History: 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 - Past Surgical History Head Surgeries/Procedures: Reports: None HEENT Surgical History: Reports: None Respiratory Surgical History: Reports: None GI Surgical History: Reports: None Male Surgical History: Reports: None Endocrine Surgical History: Reports: None Oncologic Surgical History: Reports: None Dermatological Surgical History: Reports: None Social & Family History - Family History Family Medical History: Noncontributory Cardiac: Reports: High Cholesterol, Hypertension OBGYN: Reports: Neurological: Reports: None Psychiatric: Reports: Anxiety - Caffeine Use Caffeine Use: Reports: Tea Other Caffeine Use: daily Caffeine Use Comment: patient is uncooperated - Recreational Drug Use Recreational Drug Use: No - Living Situation & Occupation Living situation: Reports: Single Occupation: Employed (Currently unemployed.) Departure - Departure Disposition: Home, Self-Care 01 Clinical Impression: Chronic renal insufficiency, Asymptomatic hypertension Abdominal pain Qualifiers: Abdominal location: generalized Qualified Code(s): R10.84 - Generalized abdominal pain Nausea and vomiting Qualifiers: Vomiting type: unspecified Vomiting Intractability: non-intractable Qualified Code(s): R11.2 - Nausea with vomiting, unspecified - Discharge Information Instructions: Food Basics for Chronic Kidney Disease, Abdominal Pain, Adult, [id number], Nausea and Vomiting, Adult, [id number], Chronic Kidney Disease, Adult, [id number] Referrals: Fitz Infante MD [Primary Care Provider] - 1 Day Forms: ED Department Discharge Additional Instructions: Plenty of fluids for the next few days. Minimize solid food intake for the next 24 hours, drink clear liquids only. This includes broth, Gatorade and water. If you are feeling better in 24 hours you may slowly progress your diet to bland solid foods, for example crackers. Rest. Follow-up with the surgeon listed below and your primary care physician. Return to the emergency department if any worsening symptoms. The following information is given to patients seen in the emergency department who are being discharged to home. This information is to outline your options for follow-up care. We provide all patients seen in our emergency department with a follow-up referral. The need for follow-up, as well as the timing and circumstances, are variable depending upon the specifics of your emergency department visit. If you don't have a primary care physician on staff, we will provide you with a referral. We always advise you to contact your personal physician following an emergency department visit to inform them of the circumstance of the visit and for follow-up with them and/or the need for any referrals to a consulting specialist. The emergency department will also refer you to a specialist when appropriate. This referral assures that you have the opportunity for follow-up care with a specialist. All of these measure are taken in an effort to provide you with optimal care, which includes your follow-up. Under all circumstances we always encourage you to contact your private physician who remains a resource for coordinating your care. When calling for follow-up care, please make the office aware that this follow-up is from your recent emergency room visit. If for any reason you are refused follow-up, please contact the [facility] Emergency Department at and asked to speak to the emergency department charge nurse. Please follow-up with the general surgeon in the clinic listed below for further evaluation; you may possibly need an upper endoscopy. [facility] - General Surgery Professional Building [address] [place] [address], [address] [place] [address] Sepsis Event Note (ED) - Evaluation Sepsis Screening Result: No Definite Risk <Demetrice Harris - Last Filed: 04/25/20 10:43> ED ROS GENERAL - Review of Systems Review Of Systems: See Below (See HPI) ED EXAM, GENERAL - Physical Exam Exam: See Below (See HPI) Course - Vital Signs Text/Narrative:: Abdominal pain, chronic, cyclical, associated with nausea and vomiting. No further nausea and vomiting upon arrival here. Patient received Benadryl, Haldol, Zofran, and Dilaudid and symptoms improved. The patient was able to sleep and rest here. Labs were reviewed which are largely unremarkable except for creatinine of 3.7the patient does have history of chronic renal insufficiency and seems to have ranged in 2-3, patient was given 1 L of normal saline for rehydration. EKG shows tachycardia, EKG performed today when compared to prior EKG March 10 appears clinically unchanged. Last Recorded V/S: Last Vital Signs Temp 96.4 F L 04/25/20 06:10 Pulse 98 04/25/20 09:55 Resp 18 04/25/20 06:10 BP 209/122 H 04/25/20 09:55 Pulse Ox 96 04/25/20 08:32 - Orders/Labs/Meds Orders: Active Orders 24 hr Category Date Time Status Blood Glucose Check, Bedside [RC] ONETIME Care 04/25/20 06:36 Active EKG Documentation Completion [RC] AM Care 04/25/20 06:37 Active Sodium Chloride 0.9% [Saline Flush] Med 04/25/20 06:36 Active 10 ml FLUSH ASDIRECTED PRN Sodium Chloride 0.9% [Saline Flush] Med 04/25/20 06:36 Active 2.5 ml FLUSH ASDIRECTED PRN Saline Lock Insert [OM.PC] Stat Oth 04/25/20 06:36 Ordered Medication Orders Sodium Chloride (Saline Flush) 10 ml FLUSH ASDIRECTED PRN PRN Reason: Keep Vein Open Sodium Chloride (Saline Flush) 2.5 ml FLUSH ASDIRECTED PRN PRN Reason: Keep Vein Open Labs: Laboratory Tests 04/25/20 04/25/20 04/25/20 Range/Units 05:25 05:25 06:25 WBC 10.78 (4.0-11.0) K/uL RBC 4.67 (4.50-5.90) M/uL Hgb 9.8 L (13.0-17.0) g/dL Hct 31.4 L (38.0-50.0) % MCV 67.2 L (80.0-98.0) fL MCH 21.0 L (27.0-32.0) pg MCHC 31.2 (31.0-37.0) g/dL RDW Std Deviation 40.1 (28.0-62.0) fl RDW Coeff of Dania 16 H (11.0-15.0) % Plt Count 485 H (150-400) K/uL MPV 10.20 (7.40-12.00) fL Neut % (Auto) 65.1 (48.0-80.0) % Lymph % (Auto) 23.9 (16.0-40.0) % [place] % (Auto) 5.8 (0.0-15.0) % Eos % (Auto) 4.8 (0.0-7.0) % Baso % (Auto) 0.4 (0.0-1.5) % Neut # (Auto) 7.0 H (1.4-5.7) K/uL Lymph # (Auto) 2.6 H (0.6-2.4) K/uL [place] # (Auto) 0.6 (0.0-0.8) K/uL Eos # (Auto) 0.5 (0.0-0.7) K/uL Baso # (Auto) 0.0 (0.0-0.1) K/uL Nucleated RBC % 0.0 /100WBC Nucleated RBCs # 0 K/uL VBG pH 7.37 (7.31-7.41) VBG pCO2 39 (35-45) mmHG VBG pO2 43 H (30-40) mmHG VBG HCO3 23 (22-30) mEq/L VBG Total CO2 21 L (41-51) mmol/L VBG Base Excess -2.6 (-3.0-3.0) Lactate (0.20-2.00) mmol/L Sodium (136-148) mmol/L Potassium (3.5-5.1) mmol/L Chloride (98-107) mmol/L Carbon Dioxide (21.0-32.0) mmol/L BUN (7.0-18.0) mg/dL Creatinine (0.8-1.3) mg/dL Est Cr Clr Drug Dosing mL/min Estimated GFR (MDRD) ml/min Glucose (74-106) mg/dL POC Glucose (60-110) mg/dL Calcium (8.5-10.1) mg/dL Phosphorus 3.9 (2.6-4.7) mg/dL Magnesium 2.1 (1.8-2.4) mg/dL Total Bilirubin (0.2-1.0) mg/dL AST (15-37) IU/L ALT (14-63) IU/L Alkaline Phosphatase (46-116) U/L Total Protein (6.4-8.2) g/dL Albumin (3.4-5.0) g/dL Globulin (2.6-4.0) g/dL Albumin/Globulin Ratio (0.9-1.6) Lipase 56 L (73-393) U/L Urine Color Urine Appearance Urine pH (5.0-8.0) Ur Specific Barnett (1.001-1.035) Urine Protein (NEGATIVE) mg/dL Urine Glucose (UA) (NEGATIVE) mg/dL Urine Ketones (NEGATIVE) mg/dL Urine Occult Blood (NEGATIVE) Urine Nitrite (NEGATIVE) Urine Bilirubin (NEGATIVE) Urine Urobilinogen (<2.0) EU/dL Ur Leukocyte Esterase (NEGATIVE) Urine RBC (0-2/HPF) Urine WBC (0-5/HPF) Ur Epithelial Cells (NONE-FEW) Urine Bacteria (NEGATIVE) Urine Opiates Screen (NEGATIVE) Ur Oxycodone Screen (NEGATIVE) Urine Methadone Screen (NEGATIVE) Ur Barbiturates Screen (NEGATIVE) Ur Phencyclidine Scrn (NEGATIVE) Ur Amphetamine Screen (NEGATIVE) U Methamphetamines Scrn (NEGATIVE) U Benzodiazepines Scrn (NEGATIVE) U Cocaine Metab Screen (NEGATIVE) U Marijuana (THC) Screen (NEGATIVE) Ethyl Alcohol 3 mg/dL Ketones (NEG) 04/25/20 04/25/20 04/25/20 Range/Units 06:25 06:25 06:25 WBC (4.0-11.0) K/uL RBC (4.50-5.90) M/uL Hgb (13.0-17.0) g/dL Hct (38.0-50.0) % MCV (80.0-98.0) fL MCH (27.0-32.0) pg MCHC (31.0-37.0) g/dL RDW Std Deviation (28.0-62.0) fl RDW Coeff of Dania (11.0-15.0) % Plt Count (150-400) K/uL MPV (7.40-12.00) fL Neut % (Auto) (48.0-80.0) % Lymph % (Auto) (16.0-40.0) % [place] % (Auto) (0.0-15.0) % Eos % (Auto) (0.0-7.0) % Baso % (Auto) (0.0-1.5) % Neut # (Auto) (1.4-5.7) K/uL Lymph # (Auto) (0.6-2.4) K/uL [place] # (Auto) (0.0-0.8) K/uL Eos # (Auto) (0.0-0.7) K/uL Baso # (Auto) (0.0-0.1) K/uL Nucleated RBC % /100WBC Nucleated RBCs # K/uL VBG pH (7.31-7.41) VBG pCO2 (35-45) mmHG VBG pO2 (30-40) mmHG VBG HCO3 (22-30) mEq/L VBG Total CO2 (41-51) mmol/L VBG Base Excess (-3.0-3.0) Lactate 1.9 (0.20-2.00) mmol/L Sodium 137 (136-148) mmol/L Potassium 4.7 (3.5-5.1) mmol/L Chloride 104 (98-107) mmol/L Carbon Dioxide 22.2 (21.0-32.0) mmol/L BUN 41 H (7.0-18.0) mg/dL Creatinine 3.7 H (0.8-1.3) mg/dL Est Cr Clr Drug Dosing 28.13 mL/min Estimated GFR (MDRD) 22.9 ml/min Glucose 343 H (74-106) mg/dL POC Glucose (60-110) mg/dL Calcium 7.9 L (8.5-10.1) mg/dL Phosphorus (2.6-4.7) mg/dL Magnesium (1.8-2.4) mg/dL Total Bilirubin 0.1 L (0.2-1.0) mg/dL AST 23 (15-37) IU/L ALT 19 (14-63) IU/L Alkaline Phosphatase 105 (46-116) U/L Total Protein 7.1 (6.4-8.2) g/dL Albumin 2.9 L (3.4-5.0) g/dL Globulin 4.2 H (2.6-4.0) g/dL Albumin/Globulin Ratio 0.7 L (0.9-1.6) Lipase (73-393) U/L Urine Color Urine Appearance Urine pH (5.0-8.0) Ur Specific Barnett (1.001-1.035) Urine Protein (NEGATIVE) mg/dL Urine Glucose (UA) (NEGATIVE) mg/dL Urine Ketones (NEGATIVE) mg/dL Urine Occult Blood (NEGATIVE) Urine Nitrite (NEGATIVE) Urine Bilirubin (NEGATIVE) Urine Urobilinogen (<2.0) EU/dL Ur Leukocyte Esterase (NEGATIVE) Urine RBC (0-2/HPF) Urine WBC (0-5/HPF) Ur Epithelial Cells (NONE-FEW) Urine Bacteria (NEGATIVE) Urine Opiates Screen (NEGATIVE) Ur Oxycodone Screen (NEGATIVE) Urine Methadone Screen (NEGATIVE) Ur Barbiturates Screen (NEGATIVE) Ur Phencyclidine Scrn (NEGATIVE) Ur Amphetamine Screen (NEGATIVE) U Methamphetamines Scrn (NEGATIVE) U Benzodiazepines Scrn (NEGATIVE) U Cocaine Metab Screen (NEGATIVE) U Marijuana (THC) Screen (NEGATIVE) Ethyl Alcohol mg/dL Ketones NEGATIVE (NEG) 04/25/20 04/25/20 04/25/20 Range/Units 06:38 08:37 08:37 WBC (4.0-11.0) K/uL RBC (4.50-5.90) M/uL Hgb (13.0-17.0) g/dL Hct (38.0-50.0) % MCV (80.0-98.0) fL MCH (27.0-32.0) pg MCHC (31.0-37.0) g/dL RDW Std Deviation (28.0-62.0) fl RDW Coeff of Dania (11.0-15.0) % Plt Count (150-400) K/uL MPV (7.40-12.00) fL Neut % (Auto) (48.0-80.0) % Lymph % (Auto) (16.0-40.0) % [place] % (Auto) (0.0-15.0) % Eos % (Auto) (0.0-7.0) % Baso % (Auto) (0.0-1.5) % Neut # (Auto) (1.4-5.7) K/uL Lymph # (Auto) (0.6-2.4) K/uL [place] # (Auto) (0.0-0.8) K/uL Eos # (Auto) (0.0-0.7) K/uL Baso # (Auto) (0.0-0.1) K/uL Nucleated RBC % /100WBC Nucleated RBCs # K/uL VBG pH (7.31-7.41) VBG pCO2 (35-45) mmHG VBG pO2 (30-40) mmHG VBG HCO3 (22-30) mEq/L VBG Total CO2 (41-51) mmol/L VBG Base Excess (-3.0-3.0) Lactate (0.20-2.00) mmol/L Sodium (136-148) mmol/L Potassium (3.5-5.1) mmol/L Chloride (98-107) mmol/L Carbon Dioxide (21.0-32.0) mmol/L BUN (7.0-18.0) mg/dL Creatinine (0.8-1.3) mg/dL Est Cr Clr Drug Dosing mL/min Estimated GFR (MDRD) ml/min Glucose (74-106) mg/dL POC Glucose 361 H (60-110) mg/dL Calcium (8.5-10.1) mg/dL Phosphorus (2.6-4.7) mg/dL Magnesium (1.8-2.4) mg/dL Total Bilirubin (0.2-1.0) mg/dL AST (15-37) IU/L ALT (14-63) IU/L Alkaline Phosphatase (46-116) U/L Total Protein (6.4-8.2) g/dL Albumin (3.4-5.0) g/dL Globulin (2.6-4.0) g/dL Albumin/Globulin Ratio (0.9-1.6) Lipase (73-393) U/L Urine Color YELLOW Urine Appearance CLEAR Urine pH 7.0 (5.0-8.0) Ur Specific Barnett 1.020 (1.001-1.035) Urine Protein >=300 H (NEGATIVE) mg/dL Urine Glucose (UA) >=1000 (NEGATIVE) mg/dL Urine Ketones NEGATIVE (NEGATIVE) mg/dL Urine Occult Blood TRACE-INTACT H (NEGATIVE) Urine Nitrite NEGATIVE (NEGATIVE) Urine Bilirubin NEGATIVE (NEGATIVE) Urine Urobilinogen 0.2 (<2.0) EU/dL Ur Leukocyte Esterase NEGATIVE (NEGATIVE) Urine RBC 1-3 (0-2/HPF) Urine WBC 0-2 (0-5/HPF) Ur Epithelial Cells RARE (NONE-FEW) Urine Bacteria RARE (NEGATIVE) Urine Opiates Screen NEGATIVE (NEGATIVE) Ur Oxycodone Screen NEGATIVE (NEGATIVE) Urine Methadone Screen NEGATIVE (NEGATIVE) Ur Barbiturates Screen NEGATIVE (NEGATIVE) Ur Phencyclidine Scrn NEGATIVE (NEGATIVE) Ur Amphetamine Screen NEGATIVE (NEGATIVE) U Methamphetamines Scrn NEGATIVE (NEGATIVE) U Benzodiazepines Scrn NEGATIVE (NEGATIVE) U Cocaine Metab Screen NEGATIVE (NEGATIVE) U Marijuana (THC) Screen POSITIVE (NEGATIVE) Ethyl Alcohol mg/dL Ketones (NEG) Meds: Medications Generic Name Dose Route Start Last Admin Trade Name Freq PRN Reason Stop Dose Admin Sodium Chloride 10 ml 04/25/20 06:36 Saline Flush FLUSH ASDIRECTED PRN Keep Vein Open Sodium Chloride 2.5 ml 04/25/20 06:36 Saline Flush FLUSH ASDIRECTED PRN Keep Vein Open Discontinued Medications Generic Name Dose Route Start Last Admin Trade Name Freq PRN Reason Stop Dose Admin Diphenhydramine HCl 50 mg 04/25/20 06:46 04/25/20 06:52 Benadryl IVPUSH 04/25/20 06:47 50 mg ONETIME ONE Administration Diphenhydramine HCl Confirm 04/25/20 06:46 04/25/20 06:52 Benadryl Administered 04/25/20 06:47 Not Given Dose 50 mg .ROUTE .STK-MED ONE Haloperidol Lactate 5 mg 04/25/20 06:37 04/25/20 06:51 Haldol IM 04/25/20 06:38 5 mg ONETIME ONE Administration Hydromorphone HCl 1 mg 04/25/20 06:37 04/25/20 06:52 Dilaudid IVPUSH 04/25/20 06:38 Not Given ONETIME ONE Sodium Chloride 1,000 mls @ 999 mls/hr 04/25/20 06:36 04/25/20 06:51 Normal Saline IV 04/25/20 07:36 999 mls/hr BOLUS ONE Administration Pantoprazole Sodium 40 mg/ 10 mls @ 300 mls/hr 04/25/20 07:05 04/25/20 07:55 Sodium Chloride IV 04/25/20 07:06 300 mls/hr NOW ONE Administration Ondansetron HCl 4 mg 04/25/20 06:36 04/25/20 06:51 Zofran IVPUSH 04/25/20 06:37 4 mg ONETIME ONE Administration Ondansetron HCl 4 mg 04/25/20 09:42 04/25/20 09:52 Zofran IVPUSH 04/25/20 09:43 4 mg ONETIME ONE Administration - Re-Assessments/Exams Free Text/Narrative Re-Assessment/Exam: 04/25/20 08:09 Patient resting comfortably and in no acute distress on reassessment. Reports pain much improved. No further vomiting. Blood pressure is elevated, prior hx of same, asymptomatic at this time. Pt unable to tell me which of his BP meds he took this morning. Will closely monitor. 04/25/20 09:41 The patient is sleeping comfortably and in no acute distress. His blood pressure is improved. When I woke the patient up, he reports that his nausea has returned. We will attempt additional dose of antiemetic and p.o. challenge. 04/25/20 10:39 resting comfortably and in no acute distress. Stable for d.c. Departure - Departure Time of Disposition: 10:39 Sepsis Event Note (ED) - Focused Exam Vital Signs: Vital Signs Temp Pulse Resp BP Pulse Ox 04/25/20 09:55 98 209/122 H 04/25/20 08:32 105 H 198/105 H 96 04/25/20 08:01 105 H 229/124 H 97 04/25/20 06:10 96.4 F L 125 H 18 244/147 H 100
[2020-04-25 06:52] LABS: CARBON DIOXIDE,CO2 22.2 mmol/L (21.0-32.0); POTASSIUM,K 4.7 mmol/L (3.5-5.1)
[2020-04-25] MEDS ORDERED: Pantoprazole 40 MG in Sodium Chloride 0.9% 10 ML IV ONE (07:05)
--- NOTE | 2020-04-25 07:38 | CR ---
INDICATION: Abdominal pain. TECHNIQUE: Chest 1 view Comparison: 02/15/2020. Findings: Cardiomediastinal silhouette is unremarkable. No focal lung consolidation, pleural effusion or pneumothorax. Bones are unremarkable. Impression: No acute cardiopulmonary abnormality. Dictated by Pete Hamilton MD @ Apr 25 2020 7:36AM Signed by Dr. Pete Hamilton @ Apr 25 2020 7:38AM
[2020-04-25 11:26] VITALS: BP 208/128; PULSE 106
== END 2020-04-25 11:26 | disposition home or self-care (01) ==
LOC: MW.ED 06:07
DX: R10.84 Generalized abdominal pain (principal); E10.21 Type 1 diabetes mellitus with diabetic nephropathy; I12.9 Hypertensive chronic kidney disease with stage 1 through stage 4 chronic kidney disease, or unspecified chronic kidney disease; N18.9 Chronic kidney disease, unspecified; R11.2 Nausea with vomiting, unspecified; D64.9 Anemia, unspecified; K21.9 Gastro-esophageal reflux disease without esophagitis; F41.9 Anxiety disorder, unspecified; E87.5 Hyperkalemia; Z88.0 Allergy status to penicillin; Z91.013 Allergy to seafood; Z91.041 Radiographic dye allergy status; Z79.899 Other long term (current) drug therapy; Z79.82 Long term (current) use of aspirin; Z79.891 Long term (current) use of opiate analgesic; Z79.84 Long term (current) use of oral hypoglycemic drugs; Z91.048 Other nonmedicinal substance allergy status
CPT/HCPCS: 36415; 71045; 80053; 80305; 80307; 81001; 82009; 82803; 82962; 83605; 83690; 83735; 84100; 85025; 93005; 96361; 96372; 96374; 96375; 96376; 99284; C9113; J1200; J1630; J2405; J7030; J7050

== ENCOUNTER 2020-04-29 19:50 | Emergency (ER) | payer MEDICAID ==
[2020-04-29] MEDS ORDERED: LORazepam 2 MG/ML SDV IVPUSH ONE (19:53)
[2020-04-29] MEDS ORDERED: Sodium Chloride 0.9% 2.5 ML Syringe FLUSH PRN (19:53)
[2020-04-29] MEDS ORDERED: diphenhydrAMINE 50 MG/ML SDV IVPUSH ONE (19:53)
[2020-04-29] MEDS ORDERED: Famotidine 20 MG/2 ML SDV IVPUSH ONE (19:53)
[2020-04-29] MEDS ORDERED: Sodium Chloride 0.9% 1,000 ML IV ONE (19:53)
[2020-04-29] MEDS ORDERED: Sodium Chloride 0.9% 10 ML Syringe FLUSH PRN (19:53)
[2020-04-29] MEDS ORDERED: Metoclopramide 10 MG/2 ML SDV IVPUSH ONE (19:53)
--- NOTE | 2020-04-29 20:10 | EDM.PDOC ---
ED HPI GENERAL MEDICAL PROBLEM - General Chief Complaint: Abdominal Pain Stated Complaint: EMS ARRIVAL - VOMITTING BLOOD Time Seen by Provider: 04/29/20 19:54 Source of Information: Reports: Patient History Limitations: Reports: No Limitations - History of Present Illness INITIAL COMMENTS - FREE TEXT/NARRATIVE: History of present illness: [Patient is 35-year-old male with self-professed history of gastroparesis, he visits the ER frequently for intractable nausea and vomiting. Nurses on shift tonight reports that they saw him 2 days ago for the same complaint. Patient states the symptoms are now been going on for all day today. He denies fever or chills. Denies chest pain shortness of breath. States his symptoms today feel like similar episodes in the past of his intractable nausea vomiting associated gastroparesis. Has not been able to keep any medicine down to treat his symptoms at home.] Review of systems: As per history of present illness and below otherwise all systems reviewed and negative. Past medical history: As per history of present illness and as reviewed below otherwise noncontributory. Surgical history: As per history of present illness and as reviewed below otherwise noncontributory. Social history: No reported history of drug or alcohol abuse. Family history: As per history of present illness and as reviewed below otherwise non contributory. Physical exam: General: Awake, alert, mild distress, A&O X3. HEENT: Atraumatic, normocephalic, pupils reactive, negative for conjunctival pallor or scleral icterus, mucous membranes moist, throat clear, neck supple, nontender, trachea midline. Lungs: Clear to auscultation, breath sounds equal bilaterally, chest nontender. Heart: RRR, normal S1S2, no JVD. Abdomen: Soft, nondistended, nontender. Negative for masses or hepatosplenomegaly. one episode of vomiting during H and P Pelvis: Stable nontender. Genitourinary: Deferred. Rectal: Deferred. Extremities: Atraumatic, no edema, Neurovascular unremarkable. Neuro: Motor and sensory grossly intact throughout. Exam nonfocal. Diagnostics: [] Therapeutics: [] Impression: [] Plan: [] Definitive disposition and diagnosis as appropriate pending reevaluation and review of above. Abdomen Pain Score (Numeric/FACES): 10 - Related Data Allergies Allergy/AdvReac Type Severity Reaction Status Date / Time shrimp Allergy Severe Swelling Verified 04/29/20 20:00 iodine Allergy Unknown Anaphylactic Verified 04/29/20 20:00 Shock Penicillins Allergy Unknown Anaphylactic Verified 04/29/20 20:00 Shock shellfish derived Allergy Anaphylactic Verified 04/29/20 20:00 Shock gluten Allergy Severe Muscle Uncoded 04/29/20 20:00 Aches Home Meds: Home Meds Doxazosin [Cardura] 4 mg PO BEDTIME 09/29/19 [History] Metoprolol Succinate 200 mg PO DAILY 09/29/19 [History] Torsemide 20 mg PO BID 09/29/19 [History] atorvaSTATin [Lipitor] 80 mg PO BEDTIME 09/29/19 [History] Insulin Aspart [NovoLOG] 0 unit SUBCUT .UP TO 60 UN DAILY 09/30/19 [History] Metoclopramide [Reglan] 5 mg PO TIDAC #90 tablet 10/10/19 [Rx] Pantoprazole [ProTONIX] 40 mg PO DAILY #30 tab.cr 10/10/19 [Rx] Aspirin [Adult Low Dose Aspirin EC] 81 mg PO DAILY 12/07/19 [History] Enalapril Maleate 20 mg PO DAILY 12/07/19 [History] Insulin Glarg,Human.Rec.Analog [Lantus] 38 mg SUBCUT BEDTIME 12/07/19 [History] Iron Ag,Ps/C/Fa6/B12/Zn/SA/Sto [Niferex Tablet] 150 mg PO BID 12/07/19 [History] Sertraline [Zoloft] 50 mg PO DAILY 12/07/19 [History] Spironolactone [Aldactone] 25 mg PO BID 12/07/19 [History] Sucralfate 1 gm PO QIDACANDBED 12/07/19 [History] amLODIPine Besylate [Amlodipine Besylate] 10 mg PO DAILY 12/07/19 [History] hydrALAZINE [Apresoline] 25 mg PO TID 12/07/19 [History] hydroCHLOROthiazide [Hydrochlorothiazide] 25 mg PO DAILY 12/07/19 [History] Ondansetron [Zofran ODT] 4 mg PO Q8H PRN 04/12/20 [History] Past Medical History - Past Health History Medical/Surgical History: Denies Medical/Surgical History HEENT History: Reports: Impaired Vision Other HEENT History: blind right eye Cardiovascular History: Reports: Hypertension Respiratory History: Reports: None Gastrointestinal History: Reports: Gastritis, GERD, Hiatal Hernia, Other (See Below) Other Gastrointestinal History: h/o gastric ulcers, h/o hiatal hernia; gastroparesis Genitourinary History: Reports: Chronic Renal Insuffiency, Diabetic Nephropathy Musculoskeletal History: Reports: Amputation Other Musculoskeletal History: RLE Neurological History: Reports: Neuropathy, Peripheral Other Neuro History: stroke Psychiatric History: Reports: Anxiety Endocrine/Metabolic History: Reports: Diabetes, Type I Other Endocrine/Metabolic History: brittle diabetic. History of hyperkalemia and DKA Insulin Pump Model and Sign Maintenance: None Hematologic History: Reports: Anemia Immunologic History: Reports: None Oncologic (Cancer) History: Reports: None Dermatologic History: Reports: Other (See Below) Other Dermatologic History: diabetic foot ulcers - Infectious Disease History Infectious Disease History: Reports: None Other Infectious Disease History: 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 - Past Surgical History Head Surgeries/Procedures: Reports: None HEENT Surgical History: Reports: None Respiratory Surgical History: Reports: None GI Surgical History: Reports: None Male Surgical History: Reports: None Endocrine Surgical History: Reports: None Oncologic Surgical History: Reports: None Dermatological Surgical History: Reports: None Social & Family History - Family History Family Medical History: Noncontributory Cardiac: Reports: High Cholesterol, Hypertension OBGYN: Reports: Neurological: Reports: None Psychiatric: Reports: Anxiety - Caffeine Use Caffeine Use: Reports: Tea Other Caffeine Use: daily Caffeine Use Comment: patient is uncooperated - Living Situation & Occupation Living situation: Reports: Single Occupation: Employed (Currently unemployed.) ED ROS GENERAL - Review of Systems Review Of Systems: Comprehensive ROS is negative, except as noted in HPI. ED EXAM, GI/ABD - Physical Exam Exam: See Below (See H&P) Course - Vital Signs Text/Narrative:: On reevaluation the patient is resting comfortably, asleep, agreeable with plan for discharge home and follow-up in the outpatient setting. Lab work is similar to previous, he has evidence of chronic kidney disease, his creatinine is actually better than it was 4 days ago. Rest of the labs are largely unremarkab le, hypertension has improved, patient well-appearing and non-toxic at discharge Last Recorded V/S: Last Vital Signs Temp 36.0 C L 04/29/20 19:54 Pulse 134 H 04/29/20 19:54 Resp 26 H 04/29/20 19:54 BP 239/131 H 04/29/20 19:54 Pulse Ox 100 04/29/20 19:54 - Orders/Labs/Meds Orders: Active Orders 24 hr Category Date Time Status Sodium Chloride 0.9% [Saline Flush] Med 04/29/20 19:53 Active 10 ml FLUSH ASDIRECTED PRN Sodium Chloride 0.9% [Saline Flush] Med 04/29/20 19:53 Active 2.5 ml FLUSH ASDIRECTED PRN Saline Lock Insert [OM.PC] Stat Oth 04/29/20 19:53 Ordered Medication Orders Sodium Chloride (Saline Flush) 10 ml FLUSH ASDIRECTED PRN PRN Reason: Keep Vein Open Sodium Chloride (Saline Flush) 2.5 ml FLUSH ASDIRECTED PRN PRN Reason: Keep Vein Open Labs: Laboratory Tests 04/29/20 04/29/20 Range/Units 20:19 20:19 WBC 9.07 (4.0-11.0) K/uL RBC 4.87 (4.50-5.90) M/uL Hgb 10.3 L (13.0-17.0) g/dL Hct 32.1 L (38.0-50.0) % MCV 65.9 L (80.0-98.0) fL MCH 21.1 L (27.0-32.0) pg MCHC 32.1 (31.0-37.0) g/dL RDW Std Deviation 37.4 (28.0-62.0) fl RDW Coeff of Dania 16 H (11.0-15.0) % Plt Count 469 H (150-400) K/uL MPV 10.30 (7.40-12.00) fL Neut % (Auto) 78.5 (48.0-80.0) % Lymph % (Auto) 14.0 L (16.0-40.0) % [place] % (Auto) 6.3 (0.0-15.0) % Eos % (Auto) 0.8 (0.0-7.0) % Baso % (Auto) 0.4 (0.0-1.5) % Neut # (Auto) 7.1 H (1.4-5.7) K/uL Lymph # (Auto) 1.3 (0.6-2.4) K/uL [place] # (Auto) 0.6 (0.0-0.8) K/uL Eos # (Auto) 0.1 (0.0-0.7) K/uL Baso # (Auto) 0.0 (0.0-0.1) K/uL Nucleated RBC % 0.0 /100WBC Nucleated RBCs # 0 K/uL Sodium 138 (136-148) mmol/L Potassium 4.1 (3.5-5.1) mmol/L Chloride 104 (98-107) mmol/L Carbon Dioxide 20.2 L (21.0-32.0) mmol/L BUN 29 H (7.0-18.0) mg/dL Creatinine 3.4 H (0.8-1.3) mg/dL Est Cr Clr Drug Dosing TNP Estimated GFR (MDRD) 25.3 ml/min Glucose 232 H (74-106) mg/dL Calcium 8.1 L (8.5-10.1) mg/dL Total Bilirubin 0.2 (0.2-1.0) mg/dL AST 24 (15-37) IU/L ALT 16 (14-63) IU/L Alkaline Phosphatase 101 (46-116) U/L Total Protein 5.9 L (6.4-8.2) g/dL Albumin 2.8 L (3.4-5.0) g/dL Globulin 3.1 (2.6-4.0) g/dL Albumin/Globulin Ratio 0.9 (0.9-1.6) Lipase 32 L (73-393) U/L Meds: Medications Generic Name Dose Route Start Last Admin Trade Name Freq PRN Reason Stop Dose Admin Sodium Chloride 10 ml 04/29/20 19:53 Saline Flush FLUSH ASDIRECTED PRN Keep Vein Open Sodium Chloride 2.5 ml 04/29/20 19:53 Saline Flush FLUSH ASDIRECTED PRN Keep Vein Open Discontinued Medications Generic Name Dose Route Start Last Admin Trade Name Freq PRN Reason Stop Dose Admin Diphenhydramine HCl 50 mg 04/29/20 19:53 04/29/20 20:02 Benadryl IVPUSH 04/29/20 19:54 50 mg ONETIME ONE Administration Famotidine 20 mg 04/29/20 19:53 04/29/20 20:05 Pepcid IVPUSH 04/29/20 19:54 20 mg ONETIME ONE Administration Sodium Chloride 1,000 mls @ 999 mls/hr 04/29/20 19:53 04/29/20 20:01 Normal Saline IV 04/29/20 20:53 999 mls/hr .Bolus ONE Administration Lorazepam 1 mg 04/29/20 19:53 04/29/20 20:05 Ativan IVPUSH 04/29/20 19:54 1 mg ONETIME ONE Administration Metoclopramide HCl 10 mg 04/29/20 19:53 04/29/20 20:04 Reglan IVPUSH 04/29/20 19:54 10 mg ONETIME ONE Administration Departure - Departure Time of Disposition: 21:00 Disposition: Home, Self-Care 01 Condition: Good Clinical Impression: Cannabinoid hyperemesis syndrome, Chronic kidney disease, stage 3 (moderate), Gastroparesis diabeticorum - Discharge Information Instructions: Gastroparesis Referrals: PCP,None [Primary Care Provider] - Forms: ED Department Discharge Additional Instructions: Follow-up with primary care doctor. Return to the ED with any new or worsening symptoms. The following information is given to patients seen in the emergency department who are being discharged to home. This information is to outline your options for follow-up care. We provide all patients seen in our emergency department with a follow-up referral. The need for follow-up, as well as the timing and circumstances, are variable depending upon the specifics of your emergency department visit. If you don't have a primary care physician on staff, we will provide you with a referral. We always advise you to contact your personal physician following an emergency department visit to inform them of the circumstance of the visit and for follow-up with them and/or the need for any referrals to a consulting specialist. The emergency department will also refer you to a specialist when appropriate. This referral assures that you have the opportunity for follow-up care with a specialist. All of these measure are taken in an effort to provide you with optimal care, which includes your follow-up. Under all circumstances we always encourage you to contact your private physician who remains a resource for coordinating your care. When calling for follow-up care, please make the office aware that this follow-up is from your recent emergency room visit. If for any reason you are refused follow-up, please contact the [facility] Emergency Department at and asked to speak to the emergency department charge nurse. Sepsis Event Note (ED) - Evaluation Sepsis Screening Result: No Definite Risk - Focused Exam Vital Signs: Vital Signs Temp Pulse Resp BP Pulse Ox 04/29/20 19:54 36.0 C L 134 H 26 H 239/131 H 100 - My Orders Last 24 Hours: My Active Orders 04/29/20 19:53 Sodium Chloride 0.9% [Saline Flush] 10 ml FLUSH ASDIRECTED PRN Sodium Chloride 0.9% [Saline Flush] 2.5 ml FLUSH ASDIRECTED PRN Saline Lock Insert [OM.PC] Stat - Assessment/Plan Last 24 Hours: My Active Orders 04/29/20 19:53 Sodium Chloride 0.9% [Saline Flush] 10 ml FLUSH ASDIRECTED PRN Sodium Chloride 0.9% [Saline Flush] 2.5 ml FLUSH ASDIRECTED PRN Saline Lock Insert [OM.PC] Stat
[2020-04-29 20:48] LABS: BLOOD UREA NITROGEN,BUN 29 mg/dL (7.0-18.0); CARBON DIOXIDE,CO2 20.2 mmol/L (21.0-32.0); CHLORIDE,CL 104 mmol/L (98-107); GLUCOSE RANDOM 232 mg/dL (74-106); LIPASE 32 U/L (73-393); POTASSIUM,K 4.1 mmol/L (3.5-5.1); SODIUM,NA 138 mmol/L (136-148)
[2020-04-29 21:46] VITALS: BP 208/108; PULSE 110
== END 2020-04-29 21:30 | disposition home or self-care (01) ==
LOC: MW.ED 19:50
DX: R11.2 Nausea with vomiting, unspecified (principal); F12.90 Cannabis use, unspecified, uncomplicated; K21.9 Gastro-esophageal reflux disease without esophagitis; I12.9 Hypertensive chronic kidney disease with stage 1 through stage 4 chronic kidney disease, or unspecified chronic kidney disease; N18.9 Chronic kidney disease, unspecified; E10.21 Type 1 diabetes mellitus with diabetic nephropathy; N18.3 Chronic kidney disease, stage 3 (moderate); E10.22 Type 1 diabetes mellitus with diabetic chronic kidney disease; E10.43 Type 1 diabetes mellitus with diabetic autonomic (poly)neuropathy; E10.42 Type 1 diabetes mellitus with diabetic polyneuropathy; K31.84 Gastroparesis; Z91.09 Other allergy status, other than to drugs and biological substances; Z88.0 Allergy status to penicillin; Z91.048 Other nonmedicinal substance allergy status; Z91.013 Allergy to seafood; Z79.4 Long term (current) use of insulin; Z79.82 Long term (current) use of aspirin; Z79.899 Other long term (current) drug therapy
CPT/HCPCS: 36415; 80053; 83690; 85025; 96361; 96374; 96375; 99284; J1200; J2060; J2765; J3490; J7030

== ENCOUNTER 2020-05-01 18:09 | Emergency (ER) | payer MEDICAID ==
[2020-05-01] MEDS ORDERED: Sodium Chloride 0.9% 1,000 ML IV ONE (19:07)
[2020-05-01] MEDS ORDERED: diphenhydrAMINE 50 MG/ML SDV IVPUSH ONE (19:07)
[2020-05-01] MEDS ORDERED: Sodium Chloride 0.9% 10 ML Syringe FLUSH PRN (19:07)
[2020-05-01] MEDS ORDERED: LORazepam 2 MG/ML SDV IVPUSH ONE (19:07)
[2020-05-01] MEDS ORDERED: Metoclopramide 10 MG/2 ML SDV IVPUSH ONE (19:07)
[2020-05-01] MEDS ORDERED: Sodium Chloride 0.9% 2.5 ML Syringe FLUSH PRN (19:07)
== END 2020-05-01 19:12 | disposition left against medical advice (07) ==
LOC: MW.ED 18:09
DX: Z53.21 Procedure and treatment not carried out due to patient leaving prior to being seen by health care provider (principal)

== ENCOUNTER 2020-05-07 23:51 | Inpatient (IN) | payer MEDICAID, OTHER ==
[2020-05-07] MEDS ORDERED: Sodium Chloride 0.9% 10 ML SDV IV PRN (23:58)
[2020-05-07] MEDS ORDERED: Sodium Chloride 0.9% 2.5 ML Syringe FLUSH PRN (23:58)
[2020-05-07] MEDS ORDERED: Sodium Chloride 0.9% 10 ML Syringe FLUSH PRN (23:58)
--- NOTE | 2020-05-08 00:03 | EDM.PDOC ---
ED HPI GENERAL MEDICAL PROBLEM - General Stated Complaint: EMS ARRIVAL Time Seen by Provider: 05/07/20 23:58 Source of Information: Reports: Patient, EMS - History of Present Illness INITIAL COMMENTS - FREE TEXT/NARRATIVE: History of present illness: 35-year-old male brought by EMS presenting with strokelike symptoms starting around 11:15 PM. Apparently the patient was preparing salsa when he felt he had difficulty speaking and he noticed some numbness over the right side of his face and left arm. No difficulty moving extremities. Symptoms have largely improved/resolved except still has some mild numbness over the right face. Prior history of stroke about a year ago as well as diabetes and gastroparesis/chronic abdominal pain. Review of systems: As per history of present illness and below otherwise all systems reviewed and negative. Past medical history: As per history of present illness and as reviewed below otherwise noncontributory. Surgical history: As per history of present illness and as reviewed below otherwise noncontributory. Social history: Occasional marijuana Family history: As per history of present illness and as reviewed below otherwise noncontributory. Physical exam: GEN: no acute distress, well appearing HEENT: Atraumatic, normocephalic, mucous membranes moist, EOMI. Funduscopic exam performed after discussion with radiology about mass seen on CT scan. Pupils are round, reactive and equal. Right eye appears to have a whitish discoloration/abnormality of the retina and I am unable to make out any landmarks. 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 Left eye normally reactive, unremarkable funduscopic exam, vessels appear unremarkable, no hemorrhage or pallor Neck: supple, nontender, trachea midline. Lungs: No respiratory distress. Heart: RRR Abdomen: Soft, nondistended, nontender. Back: nontender Extremities: Atraumatic. Neurovascularly intact. Right lower extremity prosthesis, BKA Neuro: Awake, alert, oriented x 3, speech is clear without aphasia or dysarthria. Normal tongue protrusion, no facial droop, no ataxia, equal xerox machine mechanic strength and no drift with both upper or both lower extremities. There is very mild decrease sensation over the lower face, otherwise normal sensation in both arms and legs. NIH score 1 Skin: warm, dry, no lesions Psych: Normal mood and affect Diagnostics: Stroke alert, CT scans Therapeutics: [] MDM: Impression: [] Plan: [] Definitive disposition and diagnosis as appropriate pending reevaluation and review of above. - Related Data Allergies Allergy/AdvReac Type Severity Reaction Status Date / Time shrimp Allergy Severe Swelling Verified 05/08/20 00:56 iodine Allergy Unknown Anaphylactic Verified 05/08/20 00:56 Shock Penicillins Allergy Unknown Anaphylactic Verified 05/08/20 00:56 Shock shellfish derived Allergy Anaphylactic Verified 05/08/20 00:56 Shock gluten Allergy Severe Muscle Uncoded 05/08/20 00:56 Aches Home Meds: Home Meds Doxazosin [Cardura] 4 mg PO BEDTIME 09/29/19 [History] Metoprolol Succinate 200 mg PO DAILY 09/29/19 [History] Torsemide 20 mg PO BID 09/29/19 [History] atorvaSTATin [Lipitor] 80 mg PO BEDTIME 09/29/19 [History] Insulin Aspart [NovoLOG] 0 unit SUBCUT .UP TO 60 UN DAILY 09/30/19 [History] Metoclopramide [Reglan] 5 mg PO TIDAC #90 tablet 10/10/19 [Rx] Pantoprazole [ProTONIX] 40 mg PO DAILY #30 tab.cr 10/10/19 [Rx] Aspirin [Adult Low Dose Aspirin EC] 81 mg PO DAILY 12/07/19 [History] Enalapril Maleate 20 mg PO DAILY 12/07/19 [History] Insulin Glarg,Human.Rec.Analog [Lantus] 38 mg SUBCUT BEDTIME 12/07/19 [History] Iron Ag,Ps/C/Fa6/B12/Zn/SA/Sto [Niferex Tablet] 150 mg PO BID 12/07/19 [History] Sertraline [Zoloft] 50 mg PO DAILY 12/07/19 [History] Spironolactone [Aldactone] 25 mg PO BID 12/07/19 [History] Sucralfate 1 gm PO QIDACANDBED 12/07/19 [History] amLODIPine Besylate [Amlodipine Besylate] 10 mg PO DAILY 12/07/19 [History] hydrALAZINE [Apresoline] 25 mg PO TID 12/07/19 [History] hydroCHLOROthiazide [Hydrochlorothiazide] 25 mg PO DAILY 12/07/19 [History] Ondansetron [Zofran ODT] 4 mg PO Q8H PRN 04/12/20 [History] Past Medical History - Past Health History Medical/Surgical History: Denies Medical/Surgical History HEENT History: Reports: Impaired Vision Other HEENT History: blind right eye Cardiovascular History: Reports: Hypertension Respiratory History: Reports: None Gastrointestinal History: Reports: Gastritis, GERD, Hiatal Hernia, Other (See Below) Other Gastrointestinal History: h/o gastric ulcers, h/o hiatal hernia; gastroparesis Genitourinary History: Reports: Chronic Renal Insuffiency, Diabetic Nephropathy Musculoskeletal History: Reports: Amputation Other Musculoskeletal History: RLE Neurological History: Reports: Neuropathy, Peripheral Other Neuro History: stroke Psychiatric History: Reports: Anxiety Endocrine/Metabolic History: Reports: Diabetes, Type I Other Endocrine/Metabolic History: brittle diabetic. 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 - Past Surgical History Head Surgeries/Procedures: Reports: None HEENT Surgical History: Reports: None Respiratory Surgical History: Reports: None GI Surgical History: Reports: None Male Surgical History: Reports: None Endocrine Surgical History: Reports: None Oncologic Surgical History: Reports: None Dermatological Surgical History: Reports: None Social & Family History - Family History Family Medical History: Noncontributory Cardiac: Reports: High Cholesterol, Hypertension OBGYN: Reports: Neurological: Reports: None Psychiatric: Reports: Anxiety - Caffeine Use Caffeine Use: Reports: Tea Other Caffeine Use: daily Caffeine Use Comment: patient is uncooperated - Living Situation & Occupation Living situation: Reports: Single Occupation: Employed (Currently unemployed.) ED ROS GENERAL - Review of Systems Review Of Systems: See Below (See HPI) ED EXAM, NEURO - Physical Exam Exam: See Below (See HPI) EKG INTERPRETATION EKG Interpretation Comments: EKG performed today at 12:46 AM, sinus rhythm, rate 86, no acute ischemia, no STEMI, QTC 464 *Q Meaningful Use (ADM) - VTE Risk Assess *Q Each Risk Factor Represents 1 Point: None Total Score 1 Point Risk Factors: 0 Course - Vital Signs Text/Narrative:: Patient presenting with stroke symptoms. Rapidly resolving from time of onset to time of presentation. Only current symptom is right face numbness, stroke scale 1 due to the slight decrease in sensation. Patient does have history of diabetes and prior stroke. Stroke alert activated. Will check CT brain/CT angios. Glucose in the 80s here. CT brain without contrast shows no intracranial abnormality. There does appear to be some form of a mass in the right eye, that I discussed directly with the radiologist. Concerning for potential retinal melanoma or other. I discussed this all directly with the patient, he does report that he is chronically blind in the right eye and does see a content curator regularly and was told that the reason for his blindness was a retinal detachment around 3 years ago. Discussed with him the need for ophthalmology follow-up soon as possible either in the hospital or once he is discharged from the hospital. He agrees to do so. CTA brain/neck shows no large vessel occlusion, vessel evaluation site limited at thoracic notch, however no other occlusion seen. On reassessment the patient has no symptoms. Therefore not a candidate for TPA. I do suspect the patient may have had a TIA since he has multiple stroke risk factors and had a previous stroke in the past. Therefore he will be admitted. Case was discussed with Dr. Jeffery, admitting hospitalist who will evaluate the patient. I did discuss with him the ocular abnormality and he will evaluate as well and make determination for ophthalmology consultation versus outpatient fol low-up. Last Recorded V/S: Last Vital Signs Temp 97.0 F 05/08/20 02:55 Pulse 94 05/08/20 02:55 Resp 18 05/08/20 02:55 BP 184/124 H 05/08/20 02:55 Pulse Ox 99 05/08/20 02:55 - Orders/Labs/Meds Orders: Active Orders 24 hr Category Date Time Status Assess Neurological Status [RC] ASDIRECTED Care 05/07/20 23:58 Active Bedrest [RC] ASDIRECTED Care 05/07/20 23:58 Active Cardiac Monitoring [RC] . DIRECTED Care 05/07/20 23:58 Active EKG Documentation Completion [RC] STAT Care 05/07/20 23:58 Active Height and Weight [RC] UPON Care 05/07/20 23:58 Active Initiate Acute Stroke Protocol [RC] STAT Care 05/07/20 23:58 Active NIH Stroke Scale [RC] ASDIRECTED Care 05/07/20 23:58 Active Nursing Bedside Swallow Screen [RC] ASDIRECTED Care 05/07/20 23:58 Active Oxygen Therapy [RC] ASDIRECTED Care 05/07/20 23:58 Active Stroke Education, General [RC] Click to Edit Care 05/07/20 23:58 Active Vital Signs [RC] Q15M Care 05/07/20 23:58 Active Sodium Chloride 0.9% [Normal Saline] Med 05/07/20 23:58 Active 10 ml IV ASDIRECTED PRN Sodium Chloride 0.9% [Saline Flush] Med 05/07/20 23:58 Active 10 ml FLUSH ASDIRECTED PRN Sodium Chloride 0.9% [Saline Flush] Med 05/07/20 23:58 Active 2.5 ml FLUSH ASDIRECTED PRN Peripheral IV Insertion Adult [OM.PC] Stat Oth 05/07/20 23:58 Ordered Peripheral IV Insertion Adult [OM.PC] Stat Oth 05/07/20 23:58 Ordered Resuscitation Status Stat Resus Stat 05/07/20 23:58 Ordered Medication Orders Sodium Chloride (Saline Flush) 10 ml FLUSH ASDIRECTED PRN PRN Reason: Keep Vein Open Sodium Chloride (Saline Flush) 2.5 ml FLUSH ASDIRECTED PRN PRN Reason: Keep Vein Open Sodium Chloride (Normal Saline) 10 ml IV ASDIRECTED PRN PRN Reason: IV Use Labs: Laboratory Tests 05/08/20 05/08/20 05/08/20 Range/Units 00:02 00:02 00:02 WBC 7.35 (4.0-11.0) K/uL RBC 4.44 L (4.50-5.90) M/uL Hgb 9.3 L (13.0-17.0) g/dL Hct 30.4 L (38.0-50.0) % MCV 68.5 L (80.0-98.0) fL MCH 20.9 L (27.0-32.0) pg MCHC 30.6 L (31.0-37.0) g/dL RDW Std Deviation 40.8 (28.0-62.0) fl RDW Coeff of Dania 16 H (11.0-15.0) % Plt Count 397 (150-400) K/uL MPV 10.40 (7.40-12.00) fL Neut % (Auto) 45.9 L (48.0-80.0) % Lymph % (Auto) 42.6 H (16.0-40.0) % Kent % (Auto) 7.3 (0.0-15.0) % Eos % (Auto) 3.7 (0.0-7.0) % Baso % (Auto) 0.5 (0.0-1.5) % Neut # (Auto) 3.4 (1.4-5.7) K/uL Lymph # (Auto) 3.1 H (0.6-2.4) K/uL Kent # (Auto) 0.5 (0.0-0.8) K/uL Eos # (Auto) 0.3 (0.0-0.7) K/uL Baso # (Auto) 0.0 (0.0-0.1) K/uL Nucleated RBC % 0.3 /100WBC Nucleated RBCs # 0 K/uL INR 0.97 APTT 25.5 (18.6-31.3) SEC Sodium 141 (136-148) mmol/L Potassium 4.6 (3.5-5.1) mmol/L Chloride 108 H (98-107) mmol/L Carbon Dioxide 26.6 (21.0-32.0) mmol/L BUN 25 H (7.0-18.0) mg/dL Creatinine 3.9 H (0.8-1.3) mg/dL Est Cr Clr Drug Dosing TNP Estimated GFR (MDRD) 21.6 ml/min Glucose 75 (74-106) mg/dL Calcium 8.2 L (8.5-10.1) mg/dL Total Bilirubin 0.1 L (0.2-1.0) mg/dL AST 18 (15-37) IU/L ALT 17 (14-63) IU/L Alkaline Phosphatase 88 (46-116) U/L Troponin I < 0.050 (0.000-0.056) ng/mL Total Protein 5.7 L (6.4-8.2) g/dL Albumin 2.2 L (3.4-5.0) g/dL Globulin 3.5 (2.6-4.0) g/dL Albumin/Globulin Ratio 0.6 L (0.9-1.6) TSH 3rd Generation 0.92 (0.36-3.74) uIU/mL SARS Virus RNA (PCR) (NEGATIVE) 05/08/20 Range/Units 02:00 WBC (4.0-11.0) K/uL RBC (4.50-5.90) M/uL Hgb (13.0-17.0) g/dL Hct (38.0-50.0) % MCV (80.0-98.0) fL MCH (27.0-32.0) pg MCHC (31.0-37.0) g/dL RDW Std Deviation (28.0-62.0) fl RDW Coeff of Dania (11.0-15.0) % Plt Count (150-400) K/uL MPV (7.40-12.00) fL Neut % (Auto) (48.0-80.0) % Lymph % (Auto) (16.0-40.0) % Kent % (Auto) (0.0-15.0) % Eos % (Auto) (0.0-7.0) % Baso % (Auto) (0.0-1.5) % Neut # (Auto) (1.4-5.7) K/uL Lymph # (Auto) (0.6-2.4) K/uL Kent # (Auto) (0.0-0.8) K/uL Eos # (Auto) (0.0-0.7) K/uL Baso # (Auto) (0.0-0.1) K/uL Nucleated RBC % /100WBC Nucleated RBCs # K/uL INR APTT (18.6-31.3) SEC Sodium (136-148) mmol/L Potassium (3.5-5.1) mmol/L Chloride (98-107) mmol/L Carbon Dioxide (21.0-32.0) mmol/L BUN (7.0-18.0) mg/dL Creatinine (0.8-1.3) mg/dL Est Cr Clr Drug Dosing Estimated GFR (MDRD) ml/min Glucose (74-106) mg/dL Calcium (8.5-10.1) mg/dL Total Bilirubin (0.2-1.0) mg/dL AST (15-37) IU/L ALT (14-63) IU/L Alkaline Phosphatase (46-116) U/L Troponin I (0.000-0.056) ng/mL Total Protein (6.4-8.2) g/dL Albumin (3.4-5.0) g/dL Globulin (2.6-4.0) g/dL Albumin/Globulin Ratio (0.9-1.6) TSH 3rd Generation (0.36-3.74) uIU/mL SARS Virus RNA (PCR) NEGATIVE (NEGATIVE) Meds: Medications Generic Name Dose Route Start Last Admin Trade Name Freq PRN Reason Stop Dose Admin Sodium Chloride 10 ml 05/07/20 23:58 Saline Flush FLUSH ASDIRECTED PRN Keep Vein Open Sodium Chloride 2.5 ml 05/07/20 23:58 Saline Flush FLUSH ASDIRECTED PRN Keep Vein Open Sodium Chloride 10 ml 05/07/20 23:58 Normal Saline IV ASDIRECTED PRN IV Use Discontinued Medications Generic Name Dose Route Start Last Admin Trade Name Freq PRN Reason Stop Dose Admin Sodium Chloride 1,000 mls @ 999 mls/hr 05/08/20 01:15 Normal Saline IV ASDIRECTED MICHAEL Sodium Chloride 1,000 mls @ 999 mls/hr 05/08/20 01:12 05/08/20 01:16 Normal Saline IV 05/08/20 02:12 999 mls/hr NOW STA Administration Sodium Chloride 1,000 mls @ 999 mls/hr 05/08/20 01:30 Normal Saline IV ASDIRECTED MICHAEL Sodium Chloride 1,000 mls @ 999 mls/hr 05/08/20 01:25 05/08/20 03:26 Normal Saline IV 05/08/20 02:25 999 mls/hr NOW STA Administration Iopamidol 100 ml 05/08/20 01:32 05/08/20 01:35 Isovue-370 (76%) IVPUSH 05/08/20 01:33 100 ml ONETIME STA Administration - Re-Assessments/Exams Free Text/Narrative Re-Assessment/Exam: 05/08/20 02:03 Patient resting comfortably and in no acute distress on reassessment. On reexamination, the patient is not having any further numbness. He reports his symptoms are completely resolved. I discussed all work-up results here today and recommendation for admission for possible TIA. Patient is in agreement with this. I did discuss the abnormal right globe findings on the CT scan as reported by the radiologist directly with the patient. The patient reports he has been blind for the last 3 years and he does follow regularly with ophthalmology who have told him in the past that it was a retinal detachment. However I discussed with him the concern of the radiologist for some mass in the area and the need for ophthalmology follow-up. Will attempt to obtain ophthalmology consultation or outpatient referral JOSE. 05/08/20 02:14 Dr. Jeffery called back, case was discussed and accepts the case. Request to place the patient under observation, telemetry. Departure - Departure Time of Disposition: 02:15 Disposition: Refer to Observation Clinical Impression: TIA (transient ischemic attack), Loss of vision with intraocular mass - Discharge Information Sepsis Event Note (ED) - Focused Exam Vital Signs: Vital Signs Temp Pulse Resp BP Pulse Ox 05/08/20 00:30 91 18 144/98 H 97 05/08/20 00:15 93 18 117/83 98 05/07/20 23:55 96.8 F L 106 H 18 143/91 H 97 - My Orders Last 24 Hours: My Active Orders 05/07/20 23:58 Assess Neurological Status [RC] ASDIRECTED Bedrest [RC] ASDIRECTED Cardiac Monitoring [RC] . DIRECTED EKG Documentation Completion [RC] STAT Height and Weight [RC] UPON Initiate Acute Stroke Protocol [RC] STAT NIH Stroke Scale [RC] ASDIRECTED Nursing Bedside Swallow Screen [RC] ASDIRECTED Oxygen Therapy [RC] ASDIRECTED Stroke Education, General [RC] Click to Edit Vital Signs [RC] Q15M Sodium Chloride 0.9% [Normal Saline] 10 ml IV ASDIRECTED PRN Sodium Chloride 0.9% [Saline Flush] 10 ml FLUSH ASDIRECTED PRN Sodium Chloride 0.9% [Saline Flush] 2.5 ml FLUSH ASDIRECTED PRN Peripheral IV Insertion Adult [OM.PC] Stat Peripheral IV Insertion Adult [OM.PC] Stat Resuscitation Status Stat - Assessment/Plan Last 24 Hours: My Active Orders 05/07/20 23:58 Assess Neurological Status [RC] ASDIRECTED Bedrest [RC] ASDIRECTED Cardiac Monitoring [RC] . DIRECTED EKG Documentation Completion [RC] STAT Height and Weight [RC] UPON Initiate Acute Stroke Protocol [RC] STAT NIH Stroke Scale [RC] ASDIRECTED Nursing Bedside Swallow Screen [RC] ASDIRECTED Oxygen Therapy [RC] ASDIRECTED Stroke Education, General [RC] Click to Edit Vital Signs [RC] Q15M Sodium Chloride 0.9% [Normal Saline] 10 ml IV ASDIRECTED PRN Sodium Chloride 0.9% [Saline Flush] 10 ml FLUSH ASDIRECTED PRN Sodium Chloride 0.9% [Saline Flush] 2.5 ml FLUSH ASDIRECTED PRN Peripheral IV Insertion Adult [OM.PC] Stat Peripheral IV Insertion Adult [OM.PC] Stat Resuscitation Status Stat
[2020-05-08 00:42] LABS: BLOOD UREA NITROGEN,BUN 25 mg/dL (7.0-18.0); CARBON DIOXIDE,CO2 26.6 mmol/L (21.0-32.0); CHLORIDE,CL 108 mmol/L (98-107); GLUCOSE RANDOM 75 mg/dL (74-106); POTASSIUM,K 4.6 mmol/L (3.5-5.1); SODIUM,NA 141 mmol/L (136-148)
[2020-05-08] MEDS ORDERED: Sodium Chloride 0.9% 1,000 ML IV STA ×2 (01:12→01:25)
--- NOTE | 2020-05-08 01:12 | CT ---
INDICATION: Right facial and arm numbness, speech difficulty TECHNIQUE: CT Head without i.v. contrast. COMPARISON: 02/07/2019, CTA 05/08/2020 FINDINGS: CSF space: The ventricles are normal for age. Brain: No evidence of mass, acute infarction or hemorrhage is seen. No mass-effect or midline shift is seen. The brain parenchyma is otherwise normal in appearance with preservation of the hernandez-white matter junction. There is prominent but stable hypodense appearance within the superior sagittal dural sinus and the transverse dural sinuses. The portion of the inferior sagittal sinus and transverse sinuses seen on the head CTA exam shows normal enhancement, indicating that this is likely an artifact. Calvarium: The visualized paranasal sinuses are well aerated. The mastoid air cells are clear. There is heterogeneous density within the right vitreous chamber of the globe with possible punctate calcification. The calvarium is unremarkable in appearance with no fractures identified. IMPRESSIONS: 1. No evidence of acute infarction, intracranial hemorrhage, or mass-effect seen. 2. There is heterogeneous density within the right vitreous chamber of the globe with possible punctate calcification. The findings were discussed with Dr. Harris at 1:11 AM. Please note that all CT scans at this facility use dose modulation, iterative reconstruction, and/or weight-based dosing when appropriate to reduce radiation dose to as low as reasonably achievable. Dictated by: Josh Vick MD @ 05/08/2020 01:11:38 (Electronically Signed)
[2020-05-08] MEDS ORDERED: Sodium Chloride 0.9% 1,000 ML IV SCH ×2 (01:15→01:30)
--- NOTE | 2020-05-08 01:17 | CT ---
INDICATION: Acute stroke. TECHNIQUE: After standard noncontrast head CT, high resolution axial CT images acquired through the head and neck following rapid intravenous administration of iodinated contrast. Multiplanar MIPS of cranial and cervical vasculature performed. FINDINGS: Noncontrast head CT: There is no intracranial hemorrhage or fluid collection. The hernandez-white matter differentiation is maintained. The ventricles are of normal morphology. The basal cisterns are clear. CTA head: The superior half of the head is excluded. There is normal filling of the visualized intracranial vasculature; i.e. there is no large vessel occlusion or intracranial stenosis. There is no cerebral aneurysm or evidence for vascular malformation. CTA neck: There is no carotid or vertebral artery stenosis or dissection. The soft tissues of the neck are within normal limits. The cervical spine is in normal alignment. The lung apices are clear. Heterogeneous internal densities and possible enhancement or calcification is seen within the right globe within the vitreous chamber. Ophthalmological consultation is recommended to exclude persistent hyperplastic primary vitreous, a mass, or chronic retinal detachment. This finding and recommendation were discussed with Dr. Harris at 1:10 AM. IMPRESSION: Heterogeneous internal densities and possible enhancement or calcification is seen within the right globe within the vitreous chamber. Ophthalmological [facility] in is recommended to exclude persistent hyperplastic primary vitreous, a mass, or chronic retinal detachment. This finding and recommendation were discussed with Dr. Harris at 1:10 AM (by Dr. Vick). Otherwise unremarkable CT head, CTA head and neck, though superior half of the head is excluded. George Montoya MD Neurointerventional [employer] [facility] Please note that all CT scans at this facility use dose modulation, iterative reconstruction, and/or weight-based dosing when appropriate to reduce radiation dose to as low as reasonably achievable. Dictated by George Montoya MD @ May 08 2020 8:31AM Signed by Dr. George Montoya @ May 08 2020 8:49AM
[2020-05-08] MEDS ORDERED: Iopamidol 755 Mg/ML 100 ML Bottle IVPUSH STA (01:32)
[2020-05-08] MEDS ORDERED: LORazepam 2 MG/ML SDV IVPUSH PRN (06:29)
[2020-05-08] MEDS: Insulin Aspart 100 Units/ML 3 ML Pen SUBCUT SCH ×3 (06:35→18:07)
[2020-05-08] MEDS: Ondansetron 4 MG/2 ML SDV IVPUSH PRN (06:58)
--- NOTE | 2020-05-08 07:39 | PCM.HP.2 ---
H&P History of Present Illness - General Date of Service: 05/08/20 Admit Problem/Dx: Admission Diagnosis/Problem Admission Diagnosis/Problem TIA, Transient ischemic attack Source of Information: Patient History Limitations: Reports: No Limitations - History of Present Illness Initial Comments - Free Text/Narative: 36 y.o male with significant PMH of DM type I , non-compliant w. medications, HTN, CKD, Right BKA, and anxiety; presenting last night with cocnners about stroke like symptoms; mentions last night having a right facial weakness and left lower extremity weakness; proceeded to ED and was given ASA. ED course: head CT negative, EKG:NSR. Glucose 80. Head CT incidentally showed some concern for right eye mass; pt endorsed being followed by ophthalmology with concerns for previous retinal detachment; diminished vision in that eye BP was elevated but permissive HTN was monitored CTA neck negative Troponin negative. Bedside: Pt appears distressed and c.o N+vomiting ; non-bilious (hx of gastroparesis) - Related Data Allergies/Adverse Reactions: Allergies Allergy/AdvReac Type Severity Reaction Status Date / Time shrimp Allergy Severe Swelling Verified 05/08/20 06:05 iodine Allergy Unknown Anaphylactic Verified 05/08/20 06:05 Shock Penicillins Allergy Unknown Anaphylactic Verified 05/08/20 06:05 Shock shellfish derived Allergy Anaphylactic Verified 05/08/20 06:05 Shock gluten Allergy Severe Muscle Uncoded 05/08/20 06:05 Aches Home Medications: Home Meds Doxazosin [Cardura] 4 mg PO BEDTIME 09/29/19 [History] Metoprolol Succinate 200 mg PO DAILY 09/29/19 [History] Torsemide 20 mg PO BID 09/29/19 [History] atorvaSTATin [Lipitor] 80 mg PO BEDTIME 09/29/19 [History] Insulin Aspart [NovoLOG] 0 unit SUBCUT .UP TO 60 UN DAILY 09/30/19 [History] Metoclopramide [Reglan] 5 mg PO TIDAC #90 tablet 10/10/19 [Rx] Pantoprazole [ProTONIX] 40 mg PO DAILY #30 tab.cr 10/10/19 [Rx] Aspirin [Adult Low Dose Aspirin EC] 81 mg PO DAILY 12/07/19 [History] Enalapril Maleate 20 mg PO DAILY 12/07/19 [History] Insulin Glarg,Human.Rec.Analog [Lantus] 38 mg SUBCUT BEDTIME 12/07/19 [History] Iron Ag,Ps/C/Fa6/B12/Zn/SA/Sto [Niferex Tablet] 150 mg PO BID 12/07/19 [History] Sertraline [Zoloft] 50 mg PO DAILY 12/07/19 [History] Spironolactone [Aldactone] 25 mg PO BID 12/07/19 [History] Sucralfate 1 gm PO QIDACANDBED 12/07/19 [History] amLODIPine Besylate [Amlodipine Besylate] 10 mg PO DAILY 12/07/19 [History] hydrALAZINE [Apresoline] 25 mg PO TID 12/07/19 [History] hydroCHLOROthiazide [Hydrochlorothiazide] 25 mg PO DAILY 12/07/19 [History] Ondansetron [Zofran ODT] 4 mg PO Q8H PRN 04/12/20 [History] Past Medical History - Past Health History Medical/Surgical History: Denies Medical/Surgical History HEENT History: Reports: Impaired Vision Other HEENT History: blind right eye Cardiovascular History: Reports: Hypertension Respiratory History: Reports: None Gastrointestinal History: Reports: Gastritis, GERD, Hiatal Hernia, Other (See Below) Other Gastrointestinal History: h/o gastric ulcers, h/o hiatal hernia; gastroparesis Genitourinary History: Reports: Chronic Renal Insuffiency, Diabetic Nephropathy Musculoskeletal History: Reports: Amputation Other Musculoskeletal History: RLE Neurological History: Reports: Neuropathy, Peripheral Other Neuro History: stroke Psychiatric History: Reports: Anxiety Endocrine/Metabolic History: Reports: Diabetes, Type I Other Endocrine/Metabolic History: brittle diabetic. History of hyperkalemia and DKA Insulin Pump Model and Supervisory Investigative Specialist: None Hematologic History: Reports: Anemia Immunologic History: Reports: None Oncologic (Cancer) History: Reports: None Dermatologic History: Reports: Other (See Below) Other Dermatologic History: diabetic foot ulcers - Infectious Disease History Infectious Disease History: Reports: None Other Infectious Disease History: 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 - Past Surgical History Head Surgeries/Procedures: Reports: None HEENT Surgical History: Reports: None Respiratory Surgical History: Reports: None GI Surgical History: Reports: None Male Surgical History: Reports: None Endocrine Surgical History: Reports: None Oncologic Surgical History: Reports: None Dermatological Surgical History: Reports: None Social & Family History - Family History Family Medical History: Noncontributory Cardiac: Reports: High Cholesterol, Hypertension OBGYN: Reports: Neurological: Reports: None Psychiatric: Reports: Anxiety - Tobacco Use Smoking Status *Q: Never Smoker - Caffeine Use Caffeine Use: Reports: None Other Caffeine Use: daily Caffeine Use Comment: patient is uncooperated - Recreational Drug Use Recreational Drug Use: No - Living Situation & Occupation Living situation: Reports: Single Occupation: Employed (Currently unemployed.) H&P Review of Systems - Review of Systems: Review Of Systems: See Below General: Denies: Fever, Chills, Malaise, Fatigue HEENT: Reports: No Symptoms Pulmonary: Reports: No Symptoms Cardiovascular: Denies: Chest Pain, Palpitations Gastrointestinal: Reports: Abdominal Pain, Diarrhea, Nausea, Vomiting. Denies: Decreased Appetite Genitourinary: Reports: No Symptoms Musculoskeletal: Reports: No Symptoms Skin: Reports: No Symptoms Psychiatric: Reports: No Symptoms Neurological: Reports: Headache, Weakness Hematologic/Lymphatic: Reports: No Symptoms Immunologic: Reports: No Symptoms Exam - Exam Exam: See Below - Vital Signs Vital Signs: Last Vital Signs Temp 97.5 F 05/08/20 04:00 Pulse 94 05/08/20 04:00 Resp 18 05/08/20 04:00 BP 173/112 H 05/08/20 04:00 Pulse Ox 98 05/08/20 04:00 Weight: 77.61 kg - Exam Quality Assessment: No: Supplemental Oxygen General: Alert, Oriented, Mild Distress HEENT: EOMI Neck: Supple, Trachea Midline Lungs: Clear to Auscultation, Normal Respiratory Effort Cardiovascular: Regular Rate, Regular Rhythm GI/Abdominal Exam: Soft, Non-Tender, No Organomegaly Back Exam: Normal Inspection Extremities: Normal Range of Motion, Non-Tender Skin: Warm Neurological: Cranial Nerves Intact, Reflexes Equal Bilateral, Normal Speech, Sensation Intact. No: Focal Deficit Neuro Extensive - Mental Status: Alert, Oriented x3, Normal Cognition Neuro Extensive - Motor, Sensory, Reflexes: CN II-XII Intact. No: Tongue Deviation (L), Tongue Deviation (R) Psychiatric: Alert, Depressed. No: Suicidal Ideation, Homicidal Ideation, Hallucinations - Patient Data Lab Results Last 24 hrs: Laboratory Results - last 24 hr 05/08/20 05/08/2020 Range/Units 00:02 00:02 00:02 WBC 7.35 (4.0-11.0) K/uL RBC 4.44 L (4.50-5.90) M/uL Hgb 9.3 L (13.0-17.0) g/dL Hct 30.4 L (38.0-50.0) % MCV 68.5 L (80.0-98.0) fL MCH 20.9 L (27.0-32.0) pg MCHC 30.6 L (31.0-37.0) g/dL RDW Std Deviation 40.8 (28.0-62.0) fl RDW Coeff of Dania 16 H (11.0-15.0) % Plt Count 397 (150-400) K/uL MPV 10.40 (7.40-12.00) fL Neut % (Auto) 45.9 L (48.0-80.0) % Lymph % (Auto) 42.6 H (16.0-40.0) % [place] % (Auto) 7.3 (0.0-15.0) % Eos % (Auto) 3.7 (0.0-7.0) % Baso % (Auto) 0.5 (0.0-1.5) % Neut # (Auto) 3.4 (1.4-5.7) K/uL Lymph # (Auto) 3.1 H (0.6-2.4) K/uL [place] # (Auto) 0.5 (0.0-0.8) K/uL Eos # (Auto) 0.3 (0.0-0.7) K/uL Baso # (Auto) 0.0 (0.0-0.1) K/uL Nucleated RBC % 0.3 /100WBC Nucleated RBCs # 0 K/uL INR 0.97 APTT 25.5 (18.6-31.3) SEC Sodium 141 (136-148) mmol/L Potassium 4.6 (3.5-5.1) mmol/L Chloride 108 H (98-107) mmol/L Carbon Dioxide 26.6 (21.0-32.0) mmol/L BUN 25 H (7.0-18.0) mg/dL Creatinine 3.9 H (0.8-1.3) mg/dL Est Cr Clr Drug Dosing TNP Estimated GFR (MDRD) 21.6 ml/min Glucose 75 (74-106) mg/dL POC Glucose (60-110) mg/dL Calcium 8.2 L (8.5-10.1) mg/dL Total Bilirubin 0.1 L (0.2-1.0) mg/dL AST 18 (15-37) IU/L ALT 17 (14-63) IU/L Alkaline Phosphatase 88 (46-116) U/L Troponin I < 0.050 (0.000-0.056) ng/mL Total Protein 5.7 L (6.4-8.2) g/dL Albumin 2.2 L (3.4-5.0) g/dL Globulin 3.5 (2.6-4.0) g/dL Albumin/Globulin Ratio 0.6 L (0.9-1.6) TSH 3rd Generation 0.92 (0.36-3.74) uIU/mL SARS Virus RNA (PCR) (NEGATIVE) 05/08/20 05/08/20 Range/Units 02:00 06:07 WBC (4.0-11.0) K/uL RBC (4.50-5.90) M/uL Hgb (13.0-17.0) g/dL Hct (38.0-50.0) % MCV (80.0-98.0) fL MCH (27.0-32.0) pg MCHC (31.0-37.0) g/dL RDW Std Deviation (28.0-62.0) fl RDW Coeff of Dania (11.0-15.0) % Plt Count (150-400) K/uL MPV (7.40-12.00) fL Neut % (Auto) (48.0-80.0) % Lymph % (Auto) (16.0-40.0) % [place] % (Auto) (0.0-15.0) % Eos % (Auto) (0.0-7.0) % Baso % (Auto) (0.0-1.5) % Neut # (Auto) (1.4-5.7) K/uL Lymph # (Auto) (0.6-2.4) K/uL [place] # (Auto) (0.0-0.8) K/uL Eos # (Auto) (0.0-0.7) K/uL Baso # (Auto) (0.0-0.1) K/uL Nucleated RBC % /100WBC Nucleated RBCs # K/uL INR APTT (18.6-31.3) SEC Sodium (136-148) mmol/L Potassium (3.5-5.1) mmol/L Chloride (98-107) mmol/L Carbon Dioxide (21.0-32.0) mmol/L BUN (7.0-18.0) mg/dL Creatinine (0.8-1.3) mg/dL Est Cr Clr Drug Dosing Estimated GFR (MDRD) ml/min Glucose (74-106) mg/dL POC Glucose 111 H (60-110) mg/dL Calcium (8.5-10.1) mg/dL Total Bilirubin (0.2-1.0) mg/dL AST (15-37) IU/L ALT (14-63) IU/L Alkaline Phosphatase (46-116) U/L Troponin I (0.000-0.056) ng/mL Total Protein (6.4-8.2) g/dL Albumin (3.4-5.0) g/dL Globulin (2.6-4.0) g/dL Albumin/Globulin Ratio (0.9-1.6) TSH 3rd Generation (0.36-3.74) uIU/mL SARS Virus RNA (PCR) NEGATIVE (NEGATIVE) Result Diagrams: 05/08/20 00:02 05/08/20 00:02 Sepsis Event Note - Evaluation Sepsis Screening Result: No Definite Risk - Focused Exam Vital Signs: Vital Signs Temp Pulse Resp BP Pulse Ox 05/08/20 04:00 97.5 F 94 18 173/112 H 98 05/08/20 02:55 97.0 F 94 18 184/124 H 99 05/08/20 00:30 91 18 144/98 H 97 05/08/20 00:15 93 18 117/83 98 05/07/20 23:55 96.8 F L 106 H 18 143/91 H 97 Problem List Initiated/Reviewed/Updated: Yes Orders Last 24hrs: Active Orders 24 hr Category Date Time Status Patient Status [ADT] Routine ADT 05/08/20 02:17 Active Assess Neurological Status [RC] ASDIRECTED Care 05/07/20 23:58 Active Bedrest [RC] ASDIRECTED Care 05/07/20 23:58 Active Cardiac Monitoring [RC] Q8H Care 05/07/20 23:58 Active EKG Documentation Completion [RC] STAT Care 05/07/20 23:58 Active Height and Weight [RC] UPON Care 05/07/20 23:58 Active Initiate Acute Stroke Protocol [RC] STAT Care 05/07/20 23:58 Active NIH Stroke Scale [RC] ASDIRECTED Care 05/07/20 23:58 Active Nursing Bedside Swallow Screen [RC] ASDIRECTED Care 05/07/20 23:58 Active Oxygen Therapy [RC] ASDIRECTED Care 05/07/20 23:58 Active Stroke Education, General [RC] Click to Edit Care 05/07/20 23:58 Active Telemetry Monitoring [Cardiac Monitoring] [RC] Q8H Care 05/08/20 03:26 Active Vital Signs [RC] Q4H Care 05/07/20 23:58 Active ADA Diabetic [[employer] [employer] Diet] [DIET Diet 05/08/20 Breakfast Active ] Acetaminophen [TylenoL] Med 05/08/20 06:30 Active 650 mg PO Q6H PRN Insulin Aspart [NovoLOG] Med 05/08/20 07:30 Active See Protocol SUBCUT TIDAC LORazepam [Ativan] Med 05/08/20 06:29 Active 1 mg IVPUSH Q6H PRN Ondansetron [Zofran] Med 05/08/20 06:34 Active 4 mg IVPUSH Q4H PRN Sodium Chloride 0.9% [Normal Saline] Med 05/07/20 23:58 Active 10 ml IV ASDIRECTED PRN Sodium Chloride 0.9% [Saline Flush] Med 05/07/20 23:58 Active 10 ml FLUSH ASDIRECTED PRN Sodium Chloride 0.9% [Saline Flush] Med 05/07/20 23:58 Active 2.5 ml FLUSH ASDIRECTED PRN Peripheral IV Insertion Adult [OM.PC] Stat Oth 05/07/20 23:58 Ordered Peripheral IV Insertion Adult [OM.PC] Stat Oth 05/07/20 23:58 Ordered Resuscitation Status Stat Resus Stat 05/07/20 23:58 Ordered Medication Orders Acetaminophen (Tylenol) 650 mg PO Q6H PRN PRN Reason: Pain Insulin Aspart (Novolog) 0 unit SUBCUT TIDAC [facility]; Protocol Last Admin: 05/08/20 06:35 Dose: Not Given Documented by: TEODORO Lorazepam (Ativan) 1 mg IVPUSH Q6H PRN PRN Reason: Anxiety Last Admin: 05/08/20 06:47 Dose: 1 mg Documented by: TEODORO Ondansetron HCl (Zofran) 4 mg IVPUSH Q4H PRN PRN Reason: Nausea Last Admin: 05/08/20 06:58 Dose: 4 mg Documented by: TEODORO Sodium Chloride (Saline Flush) 10 ml FLUSH ASDIRECTED PRN PRN Reason: Keep Vein Open Sodium Chloride (Saline Flush) 2.5 ml FLUSH ASDIRECTED PRN PRN Reason: Keep Vein Open Sodium Chloride (Normal Saline) 10 ml IV ASDIRECTED PRN PRN Reason: IV Use Assessment/Plan Comment:: Assessment: 1. New onset Neurological deficits: concerns for TIA/Stroke 2. Type 1 DM: non-compliant with medications 3. elevated BP w. dx of HTN 4. acute on chronic CKD. 5. PMH: s/p BKA, prior stroke history. 6. Microcytic anemia Plan. ADmit to observation. Full code. I/o per routine. Vitals per routine Bed rest Diet :diabetic N+V: reglan+pantoprazole Pain control: will consider morphine vs Dilaudid PRN in light of hx of gastroparesis 1. Neuro Deficits: at bedside, no signs of CN deficits; MRI brain will be ordered; however, CR elevated; possible secondary to contrast dye; will rehydrate, recheck Cr in AM and consider MRI brain w+w.o contrast to evaluate for any foci of ischemia. CTA neck otherwise unremarkable. HTN: unsure if compliant with medications; aiming for some permissive HTN; rest art only Amlodipine at this time; can restart others as needed. DM: unsure of pt. adherence to his diet+insulin; previous visit pt had developed severe hypoglycemia with restarting home meds ; will start with high-dose SSI and adjust thereafter. Ophthalmology mass/retinal detachment: appears to be a chronic issue; will set up follow up in outpatient setting.
[2020-05-08] MEDS ORDERED: Ondansetron 4 MG Tab.DIS PO PRN (07:45)
[2020-05-08] MEDS ORDERED: Alum Hydrox/Mag Hydrox/Simeth 15 ML, Metoclopramide 5 MG, Lidocaine 2% 5 ML PO ONE ×3 (08:49)
[2020-05-08] MEDS ORDERED: LORazepam 2 MG/ML SDV IVPUSH ONE (08:49)
[2020-05-08] MEDS ORDERED: Pantoprazole 40 MG Tab.CR PO SCH (09:00)
[2020-05-08] MEDS ORDERED: Morphine 2 MG/ML SYRINGE IVPUSH ONE ×2 (09:23→13:38)
[2020-05-08] MEDS: Pantoprazole 40 MG in Sodium Chloride 0.9% 10 ML IV SCH (09:31)
[2020-05-08] MEDS: Aspirin 81 MG Tab.EC PO SCH (10:56)
[2020-05-08] MEDS: Sertraline 50 MG Tab PO SCH (10:57)
[2020-05-08] MEDS: amLODIPine 5 MG Tab PO SCH (10:57)
[2020-05-08] MEDS: Sodium Chloride 0.9% 1,000 ML IV SCH ×2 (10:57→18:11)
[2020-05-08] MEDS ORDERED: Metoclopramide 5 MG Tab PO SCH (11:30)
[2020-05-08] MEDS ORDERED: Insulin Aspart 100 Units/ML 3 ML Pen SUBCUT SCH (11:30)
[2020-05-08] MEDS: Metoclopramide 10 MG/2 ML SDV IVPUSH PRN ×3 (13:15→22:36)
[2020-05-08] MEDS: Sucralfate 1 GM Tab PO SCH ×3 (13:36→20:30)
[2020-05-08] MEDS: Morphine 2 MG/ML SYRINGE IVPUSH PRN ×2 (18:05→22:37)
[2020-05-08] MEDS: LORazepam 2 MG/ML SDV IVPUSH PRN (20:28)
[2020-05-08] MEDS: atorvaSTATin 40 MG Tab PO SCH (20:30)
[2020-05-09] MEDS: Ondansetron 4 MG/2 ML SDV IVPUSH PRN ×3 (02:04→10:58)
[2020-05-09] MEDS: LORazepam 2 MG/ML SDV IVPUSH PRN ×5 (02:07→19:06)
[2020-05-09] MEDS: Sodium Chloride 0.9% 1,000 ML IV SCH ×3 (02:10→20:00)
[2020-05-09] MEDS: Metoclopramide 10 MG/2 ML SDV IVPUSH PRN ×3 (02:42→13:50)
[2020-05-09] MEDS: Morphine 2 MG/ML SYRINGE IVPUSH PRN ×4 (02:42→17:38)
[2020-05-09] MEDS: Acetaminophen 325 MG Tab PO PRN (06:07)
[2020-05-09 06:58] LABS: CARBON DIOXIDE,CO2 19.4 mmol/L (21.0-32.0); POTASSIUM,K 5.4 mmol/L (3.5-5.1)
[2020-05-09] MEDS: Sucralfate 1 GM Tab PO SCH ×4 (08:36→20:59)
[2020-05-09] MEDS: Insulin Aspart 100 Units/ML 3 ML Pen SUBCUT SCH ×3 (08:38→16:26)
[2020-05-09] MEDS: Aspirin 81 MG Tab.EC PO SCH (08:40)
[2020-05-09] MEDS: Sertraline 50 MG Tab PO SCH (08:41)
[2020-05-09] MEDS: amLODIPine 5 MG Tab PO SCH (08:41)
[2020-05-09] MEDS: Pantoprazole 40 MG in Sodium Chloride 0.9% 10 ML IV SCH (08:43)
[2020-05-09] MEDS ORDERED: Hydrochlorothiazide 25 MG Tab PO SCH (09:00)
--- NOTE | 2020-05-09 09:32 | PCM.PN ---
<Hyacinth Giordano - Last Filed: 05/09/20 11:48> - General Info Date of Service: 05/09/20 Subjective Update: Bedside: still tearful at this time; sleep[t well and no new acute distress - Review of Systems General: Denies: Fever, Chills HEENT: Reports: No Symptoms Pulmonary: Reports: No Symptoms Cardiovascular: Reports: No Symptoms Gastrointestinal: Reports: Abdominal Pain. Denies: Constipation, Decreased Appetite, Diarrhea Genitourinary: Reports: No Symptoms Musculoskeletal: Reports: No Symptoms Neurological: Reports: Headache Psychiatric: Reports: No Symptoms - Patient Data Vitals - Most Recent: Last Vital Signs Temp 97.5 F 05/09/20 08:34 Pulse 93 05/09/20 08:34 Resp 14 05/09/20 08:34 BP 224/124 H 05/09/20 08:41 Pulse Ox 97 05/09/20 08:34 Weight - Most Recent: 77.61 kg I&O - Last 24 Hours: Intake & Output 05/08/20 05/09/20 05/09/20 22:59 06:59 14:59 Intake Total 480 400 Output Total 860 480 Balance -380 -80 Lab Results Last 24 Hours: Laboratory Results - last 24 hr 05/08/20 05/08/20 05/08/20 Range/Units 00:02 12:47 13:26 WBC (4.0-11.0) K/uL RBC (4.50-5.90) M/uL Hgb (13.0-17.0) g/dL Hct (38.0-50.0) % MCV (80.0-98.0) fL MCH (27.0-32.0) pg MCHC (31.0-37.0) g/dL RDW Std Deviation (28.0-62.0) fl RDW Coeff of Dania (11.0-15.0) % Plt Count (150-400) K/uL MPV (7.40-12.00) fL Neut % (Auto) (48.0-80.0) % Lymph % (Auto) (16.0-40.0) % Hancock % (Auto) (0.0-15.0) % Eos % (Auto) (0.0-7.0) % Baso % (Auto) (0.0-1.5) % Neut # (Auto) (1.4-5.7) K/uL Lymph # (Auto) (0.6-2.4) K/uL Hancock # (Auto) (0.0-0.8) K/uL Eos # (Auto) (0.0-0.7) K/uL Baso # (Auto) (0.0-0.1) K/uL Nucleated RBC % /100WBC Nucleated RBCs # K/uL Sodium (136-148) mmol/L Potassium (3.5-5.1) mmol/L Chloride (98-107) mmol/L Carbon Dioxide (21.0-32.0) mmol/L BUN (7.0-18.0) mg/dL Creatinine (0.8-1.3) mg/dL Est Cr Clr Drug Dosing mL/min Estimated GFR (MDRD) ml/min Glucose (74-106) mg/dL POC Glucose 177 H 175 H (60-110) mg/dL Hemoglobin A1c 8.0 H (4.5-6.2) % Calcium (8.5-10.1) mg/dL Iron (50-175) ug/dL Urine Opiates Screen (NEGATIVE) Ur Oxycodone Screen (NEGATIVE) Urine Methadone Screen (NEGATIVE) Ur Barbiturates Screen (NEGATIVE) Ur Phencyclidine Scrn (NEGATIVE) Ur Amphetamine Screen (NEGATIVE) U Methamphetamines Scrn (NEGATIVE) U Benzodiazepines Scrn (NEGATIVE) U Cocaine Metab Screen (NEGATIVE) U Marijuana (THC) Screen (NEGATIVE) 05/08/20 05/08/20 05/08/20 Range/Units 13:30 17:29 22:30 WBC (4.0-11.0) K/uL RBC (4.50-5.90) M/uL Hgb (13.0-17.0) g/dL Hct (38.0-50.0) % MCV (80.0-98.0) fL MCH (27.0-32.0) pg MCHC (31.0-37.0) g/dL RDW Std Deviation (28.0-62.0) fl RDW Coeff of Dania (11.0-15.0) % Plt Count (150-400) K/uL MPV (7.40-12.00) fL Neut % (Auto) (48.0-80.0) % Lymph % (Auto) (16.0-40.0) % Hancock % (Auto) (0.0-15.0) % Eos % (Auto) (0.0-7.0) % Baso % (Auto) (0.0-1.5) % Neut # (Auto) (1.4-5.7) K/uL Lymph # (Auto) (0.6-2.4) K/uL Hancock # (Auto) (0.0-0.8) K/uL Eos # (Auto) (0.0-0.7) K/uL Baso # (Auto) (0.0-0.1) K/uL Nucleated RBC % /100WBC Nucleated RBCs # K/uL Sodium (136-148) mmol/L Potassium (3.5-5.1) mmol/L Chloride (98-107) mmol/L Carbon Dioxide (21.0-32.0) mmol/L BUN (7.0-18.0) mg/dL Creatinine (0.8-1.3) mg/dL Est Cr Clr Drug Dosing mL/min Estimated GFR (MDRD) ml/min Glucose (74-106) mg/dL POC Glucose 176 H 258 H (60-110) mg/dL Hemoglobin A1c (4.5-6.2) % Calcium (8.5-10.1) mg/dL Iron (50-175) ug/dL Urine Opiates Screen POSITIVE (NEGATIVE) Ur Oxycodone Screen NEGATIVE (NEGATIVE) Urine Methadone Screen NEGATIVE (NEGATIVE) Ur Barbiturates Screen NEGATIVE (NEGATIVE) Ur Phencyclidine Scrn NEGATIVE (NEGATIVE) Ur Amphetamine Screen NEGATIVE (NEGATIVE) U Methamphetamines Scrn NEGATIVE (NEGATIVE) U Benzodiazepines Scrn NEGATIVE (NEGATIVE) U Cocaine Metab Screen NEGATIVE (NEGATIVE) U Marijuana (THC) Screen POSITIVE (NEGATIVE) 05/09/20 05/09/20 05/09/20 Range/Units 06:18 06:23 06:23 WBC 8.42 (4.0-11.0) K/uL RBC 4.29 L (4.50-5.90) M/uL Hgb 9.0 L (13.0-17.0) g/dL Hct 29.0 L (38.0-50.0) % MCV 67.6 L (80.0-98.0) fL MCH 21.0 L (27.0-32.0) pg MCHC 31.0 (31.0-37.0) g/dL RDW Std Deviation 39.6 (28.0-62.0) fl RDW Coeff of Dania 16 H (11.0-15.0) % Plt Count 376 (150-400) K/uL MPV 10.30 (7.40-12.00) fL Neut % (Auto) 69.3 (48.0-80.0) % Lymph % (Auto) 20.8 (16.0-40.0) % Hancock % (Auto) 6.8 (0.0-15.0) % Eos % (Auto) 2.6 (0.0-7.0) % Baso % (Auto) 0.5 (0.0-1.5) % Neut # (Auto) 5.8 H (1.4-5.7) K/uL Lymph # (Auto) 1.8 (0.6-2.4) K/uL Hancock # (Auto) 0.6 (0.0-0.8) K/uL Eos # (Auto) 0.2 (0.0-0.7) K/uL Baso # (Auto) 0.0 (0.0-0.1) K/uL Nucleated RBC % 0.0 /100WBC Nucleated RBCs # 0 K/uL Sodium 137 (136-148) mmol/L Potassium 5.4 H (3.5-5.1) mmol/L Chloride 106 (98-107) mmol/L Carbon Dioxide 19.4 L (21.0-32.0) mmol/L BUN 29 H (7.0-18.0) mg/dL Creatinine 3.5 H (0.8-1.3) mg/dL Est Cr Clr Drug Dosing 28.77 mL/min Estimated GFR (MDRD) 24.4 ml/min Glucose 196 H (74-106) mg/dL POC Glucose 208 H (60-110) mg/dL Hemoglobin A1c (4.5-6.2) % Calcium 8.0 L (8.5-10.1) mg/dL Iron (50-175) ug/dL Urine Opiates Screen (NEGATIVE) Ur Oxycodone Screen (NEGATIVE) Urine Methadone Screen (NEGATIVE) Ur Barbiturates Screen (NEGATIVE) Ur Phencyclidine Scrn (NEGATIVE) Ur Amphetamine Screen (NEGATIVE) U Methamphetamines Scrn (NEGATIVE) U Benzodiazepines Scrn (NEGATIVE) U Cocaine Metab Screen (NEGATIVE) U Marijuana (THC) Screen (NEGATIVE) 05/09/20 05/09/20 Range/Units 06:23 08:37 WBC (4.0-11.0) K/uL RBC (4.50-5.90) M/uL Hgb (13.0-17.0) g/dL Hct (38.0-50.0) % MCV (80.0-98.0) fL MCH (27.0-32.0) pg MCHC (31.0-37.0) g/dL RDW Std Deviation (28.0-62.0) fl RDW Coeff of Dania (11.0-15.0) % Plt Count (150-400) K/uL MPV (7.40-12.00) fL Neut % (Auto) (48.0-80.0) % Lymph % (Auto) (16.0-40.0) % Hancock % (Auto) (0.0-15.0) % Eos % (Auto) (0.0-7.0) % Baso % (Auto) (0.0-1.5) % Neut # (Auto) (1.4-5.7) K/uL Lymph # (Auto) (0.6-2.4) K/uL Hancock # (Auto) (0.0-0.8) K/uL Eos # (Auto) (0.0-0.7) K/uL Baso # (Auto) (0.0-0.1) K/uL Nucleated RBC % /100WBC Nucleated RBCs # K/uL Sodium (136-148) mmol/L Potassium (3.5-5.1) mmol/L Chloride (98-107) mmol/L Carbon Dioxide (21.0-32.0) mmol/L BUN (7.0-18.0) mg/dL Creatinine (0.8-1.3) mg/dL Est Cr Clr Drug Dosing mL/min Estimated GFR (MDRD) ml/min Glucose (74-106) mg/dL POC Glucose 219 H (60-110) mg/dL Hemoglobin A1c (4.5-6.2) % Calcium (8.5-10.1) mg/dL Iron 42 L (50-175) ug/dL Urine Opiates Screen (NEGATIVE) Ur Oxycodone Screen (NEGATIVE) Urine Methadone Screen (NEGATIVE) Ur Barbiturates Screen (NEGATIVE) Ur Phencyclidine Scrn (NEGATIVE) Ur Amphetamine Screen (NEGATIVE) U Methamphetamines Scrn (NEGATIVE) U Benzodiazepines Scrn (NEGATIVE) U Cocaine Metab Screen (NEGATIVE) U Marijuana (THC) Screen (NEGATIVE) Med Orders - Current: Current Medications Acetaminophen (Tylenol) 650 mg PO Q6H PRN PRN Reason: Pain Last Admin: 05/09/20 06:07 Dose: 650 mg Documented by: Amlodipine Besylate (Norvasc) 10 mg PO DAILY [facility] Last Admin: 05/09/20 08:41 Dose: 10 mg Documented by: Aspirin (Halfprin) 81 mg PO DAILY [facility] Last Admin: 05/09/20 08:40 Dose: 81 mg Documented by: Atorvastatin Calcium (Lipitor) 80 mg PO BEDTIME [facility] Last Admin: 05/08/20 20:30 Dose: 80 mg Documented by: Hydralazine HCl (Apresoline) 10 mg IVPUSH Q4H [facility] Pantoprazole Sodium 40 mg/ (Sodium Chloride) 10 mls @ 300 mls/hr IV Q24H [facility] Last Admin: 05/09/20 08:43 Dose: 300 mls/hr Documented by: Sodium Chloride (Normal Saline) 1,000 mls @ 125 mls/hr IV Q8H [facility] Last Admin: 05/09/20 02:10 Dose: 125 mls/hr Documented by: Insulin Aspart (Novolog) 0 unit SUBCUT TIDAC [facility]; Protocol Last Admin: 05/09/20 08:38 Dose: 2 units Documented by: Lorazepam (Ativan) 1 mg IVPUSH Q4H PRN PRN Reason: Anxiety Last Admin: 05/09/20 06:06 Dose: 1 mg Documented by: Metoclopramide HCl (Reglan) 5 mg IVPUSH Q4H PRN PRN Reason: Pain Last Admin: 05/09/20 08:49 Dose: 5 mg Documented by: Morphine Sulfate (Morphine) 2 mg IVPUSH Q4H PRN PRN Reason: Pain Last Admin: 05/09/20 08:45 Dose: 2 mg Documented by: Ondansetron HCl (Zofran) 4 mg IVPUSH Q4H PRN PRN Reason: Nausea Last Admin: 05/09/20 06:06 Dose: 4 mg Documented by: Ondansetron HCl (Zofran Odt) 4 mg PO Q8H PRN PRN Reason: Abdominal Pain Sertraline HCl (Zoloft) 50 mg PO DAILY [facility] Last Admin: 05/09/20 08:41 Dose: 50 mg Documented by: Sodium Chloride (Saline Flush) 10 ml FLUSH ASDIRECTED PRN PRN Reason: Keep Vein Open Sodium Chloride (Saline Flush) 2.5 ml FLUSH ASDIRECTED PRN PRN Reason: Keep Vein Open Sodium Chloride (Normal Saline) 10 ml IV ASDIRECTED PRN PRN Reason: IV Use Sucralfate (Carafate) 1 gm PO QIDACANDBED [facility] Last Admin: 05/09/20 08:36 Dose: 1 gm Documented by: Discontinued Medications Al Hydroxide/Mg Hydroxide 15 ml/ Metoclopramide HCl 5 mg/Lidocaine HCl 5 ml 0 ml PO ONETIME ONE Stop: 05/08/20 08:50 Last Admin: 05/08/20 09:36 Dose: Not Given Documented by: Enalapril Maleate (Vasotec) 20 mg PO DAILY [facility] Last Admin: 05/08/20 13:37 Dose: Not Given Documented by: Hydrochlorothiazide (Hydrochlorothiazide) 25 mg PO DAILY [facility] Sodium Chloride (Normal Saline) 1,000 mls @ 999 mls/hr IV ASDIRECTED [facility] Sodium Chloride (Normal Saline) 1,000 mls @ 999 mls/hr IV NOW STA Stop: 05/08/20 02:12 Last Admin: 05/08/20 01:16 Dose: 999 mls/hr Documented by: Sodium Chloride (Normal Saline) 1,000 mls @ 999 mls/hr IV ASDIRECTED [facility] Sodium Chloride (Normal Saline) 1,000 mls @ 999 mls/hr IV NOW STA Stop: 05/08/20 02:25 Last Admin: 05/08/20 03:26 Dose: 999 mls/hr Documented by: Insulin Aspart (Novolog) 0 unit SUBCUT TIDAC [facility]; Protocol Last Admin: 05/08/20 13:36 Dose: Not Given Documented by: Iopamidol (Isovue-370 (76%)) 100 ml IVPUSH ONETIME STA Stop: 05/08/20 01:33 Last Admin: 05/08/20 01:35 Dose: 100 ml Documented by: Lorazepam (Ativan) 1 mg IVPUSH Q6H PRN PRN Reason: Anxiety Last Admin: 05/08/20 06:47 Dose: 1 mg Documented by: Lorazepam (Ativan) 2 mg IVPUSH ONETIME ONE Stop: 05/08/20 08:50 Last Admin: 05/08/20 09:06 Dose: 2 mg Documented by: Metoclopramide HCl (Reglan) 5 mg PO TIDAC [facility] Morphine Sulfate (Morphine) 2 mg IVPUSH ONETIME ONE Stop: 05/08/20 09:24 Last Admin: 05/08/20 09:32 Dose: 2 mg Documented by: Morphine Sulfate (Morphine) 1 mg IVPUSH ONETIME ONE Stop: 05/08/20 13:39 Last Admin: 05/08/20 13:52 Dose: 1 mg Documented by: Pantoprazole Sodium (Protonix) 40 mg PO ACBREAKFAST [facility] Last Admin: 05/08/20 13:37 Dose: Not Given Documented by: - Exam Quality Assessment: No: Supplemental Oxygen General: Alert, Oriented, Mild Distress HEENT: EOMI Neck: Supple Lungs: Clear to Auscultation, Normal Respiratory Effort Cardiovascular: Regular Rate, Regular Rhythm GI/Abdominal Exam: Soft, Other (minimal tenderness; no rebound tenderness ) Back Exam: Full Range of Motion Skin: Warm Neurological: No New Focal Deficit Psy/Mental Status: Alert Sepsis Event Note - Evaluation Sepsis Screening Result: No Definite Risk - Focused Exam Vital Signs: Vital Signs Temp Pulse Resp BP BP Pulse Ox 05/09/20 08:41 224/124 H 05/09/20 08:34 97.5 F 93 14 224/124 H 97 05/09/20 03:15 97.8 F 90 14 182/111 H 99 05/08/20 22:48 97.7 F 89 18 196/112 H 98 - Problem List Review Problem List Initiated/Reviewed/Updated: Yes - My Orders Last 24 Hours: My Active Orders 05/08/20 09:00 Aspirin [Halfprin] 81 mg PO DAILY Sertraline [Zoloft] 50 mg PO DAILY amLODIPine [Norvasc] 10 mg PO DAILY 05/08/20 09:22 Metoclopramide [Reglan] 5 mg IVPUSH Q4H PRN 05/08/20 09:30 Pantoprazole [ProTONIX IV] 40 mg Sodium Chloride 0.9% [Normal Saline] 10 ml IV Q24H 05/08/20 11:30 Sucralfate [Carafate] 1 gm PO QIDACANDBED 05/08/20 13:38 LORazepam [Ativan] 1 mg IVPUSH Q4H PRN 05/08/20 21:00 atorvaSTATin [Lipitor] 80 mg PO BEDTIME 05/09/20 09:15 hydrALAZINE [Apresoline] 10 mg IVPUSH Q4H - Plan Plan:: Assessment: 1. New onset Neurological deficits: concerns for TIA/Stroke 2. Type 1 DM: non-compliant with medications 3. elevated BP w. dx of HTN 4. acute on chronic CKD. 5. PMH: s/p BKA, prior stroke history. 6. Microcytic anemia Plan. Admit to observation. Full code. I/o per routine. Vitals per routine Bed rest Diet :diabetic N+V: reglan+pantoprazole Pain control: will consider morphine PRN in light of hx of gastroparesis 1. 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 <Gini Means - Last Filed: 05/10/20 11:08> - General Info Subjective Update: I have seen and evaluated the patient and agree with the residents note unless specified in my note - Patient Data Vitals - Most Recent: Last Vital Signs Temp 36.3 C 05/10/20 07:16 Pulse 105 H 05/10/20 08:46 Resp 12 05/10/20 07:16 BP 180/103 H 05/10/20 08:46 Pulse Ox 98 05/10/20 07:16 I&O - Last 24 Hours: Intake & Output 05/09/20 05/10/20 05/10/20 22:59 06:59 14:59 Intake Total 1641 2050 Output Total 720 500 Balance 921 1550 Lab Results Last 24 Hours: Laboratory Results - last 24 hr 05/09/20 05/09/20 05/10/20 Range/Units 12:31 16:24 01:15 WBC (4.0-11.0) K/uL RBC (4.50-5.90) M/uL Hgb (13.0-17.0) g/dL Hct (38.0-50.0) % MCV (80.0-98.0) fL MCH (27.0-32.0) pg MCHC (31.0-37.0) g/dL RDW Std Deviation (28.0-62.0) fl RDW Coeff of Dania (11.0-15.0) % Plt Count (150-400) K/uL MPV (7.40-12.00) fL Neut % (Auto) (48.0-80.0) % Lymph % (Auto) (16.0-40.0) % Hancock % (Auto) (0.0-15.0) % Eos % (Auto) (0.0-7.0) % Baso % (Auto) (0.0-1.5) % Neut # (Auto) (1.4-5.7) K/uL Lymph # (Auto) (0.6-2.4) K/uL Hancock # (Auto) (0.0-0.8) K/uL Eos # (Auto) (0.0-0.7) K/uL Baso # (Auto) (0.0-0.1) K/uL Nucleated RBC % /100WBC Nucleated RBCs # K/uL Sodium (136-148) mmol/L Potassium (3.5-5.1) mmol/L Chloride (98-107) mmol/L Carbon Dioxide (21.0-32.0) mmol/L BUN (7.0-18.0) mg/dL Creatinine (0.8-1.3) mg/dL Est Cr Clr Drug Dosing mL/min Estimated GFR (MDRD) ml/min Glucose (74-106) mg/dL POC Glucose 204 H 246 H 221 H (60-110) mg/dL Calcium (8.5-10.1) mg/dL 05/10/20 05/10/20 05/10/20 Range/Units 03:15 06:12 06:37 WBC 8.75 (4.0-11.0) K/uL RBC 4.18 L (4.50-5.90) M/uL Hgb 8.8 L (13.0-17.0) g/dL Hct 28.3 L (38.0-50.0) % MCV 67.7 L (80.0-98.0) fL MCH 21.1 L (27.0-32.0) pg MCHC 31.1 (31.0-37.0) g/dL RDW Std Deviation 39.6 (28.0-62.0) fl RDW Coeff of Dania 16 H (11.0-15.0) % Plt Count 380 (150-400) K/uL MPV 10.20 (7.40-12.00) fL Neut % (Auto) 77.9 (48.0-80.0) % Lymph % (Auto) 16.9 (16.0-40.0) % Hancock % (Auto) 4.5 (0.0-15.0) % Eos % (Auto) 0.5 (0.0-7.0) % Baso % (Auto) 0.2 (0.0-1.5) % Neut # (Auto) 6.8 H (1.4-5.7) K/uL Lymph # (Auto) 1.5 (0.6-2.4) K/uL Hancock # (Auto) 0.4 (0.0-0.8) K/uL Eos # (Auto) 0.0 (0.0-0.7) K/uL Baso # (Auto) 0.0 (0.0-0.1) K/uL Nucleated RBC % 0.0 /100WBC Nucleated RBCs # 0 K/uL Sodium (136-148) mmol/L Potassium (3.5-5.1) mmol/L Chloride (98-107) mmol/L Carbon Dioxide (21.0-32.0) mmol/L BUN (7.0-18.0) mg/dL Creatinine (0.8-1.3) mg/dL Est Cr Clr Drug Dosing mL/min Estimated GFR (MDRD) ml/min Glucose (74-106) mg/dL POC Glucose 257 H 257 H (60-110) mg/dL Calcium (8.5-10.1) mg/dL 05/10/20 Range/Units 06:37 WBC (4.0-11.0) K/uL RBC (4.50-5.90) M/uL Hgb (13.0-17.0) g/dL Hct (38.0-50.0) % MCV (80.0-98.0) fL MCH (27.0-32.0) pg MCHC (31.0-37.0) g/dL RDW Std Deviation (28.0-62.0) fl RDW Coeff of Dania (11.0-15.0) % Plt Count (150-400) K/uL MPV (7.40-12.00) fL Neut % (Auto) (48.0-80.0) % Lymph % (Auto) (16.0-40.0) % Hancock % (Auto) (0.0-15.0) % Eos % (Auto) (0.0-7.0) % Baso % (Auto) (0.0-1.5) % Neut # (Auto) (1.4-5.7) K/uL Lymph # (Auto) (0.6-2.4) K/uL Hancock # (Auto) (0.0-0.8) K/uL Eos # (Auto) (0.0-0.7) K/uL Baso # (Auto) (0.0-0.1) K/uL Nucleated RBC % /100WBC Nucleated RBCs # K/uL Sodium 136 (136-148) mmol/L Potassium 4.4 (3.5-5.1) mmol/L Chloride 107 (98-107) mmol/L Carbon Dioxide 17.3 L (21.0-32.0) mmol/L BUN 32 H (7.0-18.0) mg/dL Creatinine 4.3 H (0.8-1.3) mg/dL Est Cr Clr Drug Dosing 23.42 mL/min Estimated GFR (MDRD) 19.3 ml/min Glucose 278 H (74-106) mg/dL POC Glucose (60-110) mg/dL Calcium 7.8 L (8.5-10.1) mg/dL Med Orders - Current: Current Medications Acetaminophen (Tylenol) 650 mg PO Q6H PRN PRN Reason: Pain Last Admin: 05/09/20 06:07 Dose: 650 mg Documented by: Amlodipine Besylate (Norvasc) 10 mg PO DAILY [facility] Last Admin: 05/10/20 08:43 Dose: 10 mg Documented by: Aspirin (Halfprin) 81 mg PO DAILY [facility] Last Admin: 05/10/20 08:42 Dose: 81 mg Documented by: Atorvastatin Calcium (Lipitor) 80 mg PO BEDTIME [facility] Last Admin: 05/09/20 20:59 Dose: 80 mg Documented by: Hydralazine HCl (Apresoline) 10 mg IVPUSH Q4H [facility] Last Admin: 05/10/20 09:05 Dose: 10 mg Documented by: Hydromorphone HCl (Dilaudid) 1 mg IVPUSH Q4H PRN PRN Reason: Pain Last Admin: 05/10/20 10:31 Dose: 1 mg Documented by: Pantoprazole Sodium 40 mg/ (Sodium Chloride) 10 mls @ 300 mls/hr IV Q24H [facility] Last Admin: 05/10/20 09:08 Dose: 300 mls/hr Documented by: Sodium Chloride (Normal Saline) 1,000 mls @ 125 mls/hr IV Q8H [facility] Last Admin: 05/10/20 04:14 Dose: 125 mls/hr Documented by: Insulin Aspart (Novolog) 0 unit SUBCUT TIDAC [facility]; Protocol Last Admin: 05/10/20 07:38 Dose: Not Given Documented by: Labetalol HCl (Normodyne) 10 mg IVPUSH Q4H PRN; Protocol PRN Reason: Hypertension Last Admin: 05/10/20 03:21 Dose: 10 mg Documented by: Lorazepam (Ativan) 2 mg IVPUSH Q4H PRN PRN Reason: Anxiety Last Admin: 05/10/20 06:03 Dose: 2 mg Documented by: Metoclopramide HCl (Reglan) 5 mg IVPUSH Q6H [facility] Last Admin: 05/10/20 10:23 Dose: 5 mg Documented by: Metoprolol Succinate (Toprol Xl) 200 mg PO DAILY [facility] Last Admin: 05/10/20 08:46 Dose: 200 mg Documented by: Ondansetron HCl (Zofran) 4 mg IVPUSH Q4H PRN PRN Reason: Nausea Last Admin: 05/09/20 10:58 Dose: 4 mg Documented by: Sertraline HCl (Zoloft) 50 mg PO DAILY [facility] Last Admin: 05/10/20 08:43 Dose: Not Given Documented by: Sodium Chloride (Saline Flush) 10 ml FLUSH ASDIRECTED PRN PRN Reason: Keep Vein Open Sodium Chloride (Saline Flush) 2.5 ml FLUSH ASDIRECTED PRN PRN Reason: Keep Vein Open Sodium Chloride (Normal Saline) 10 ml IV ASDIRECTED PRN PRN Reason: IV Use Spironolactone (Aldactone) 25 mg PO BID [facility] Last Admin: 05/10/20 10:22 Dose: 25 mg Documented by: Sucralfate (Carafate) 1 gm PO QIDACANDBED [facility] Last Admin: 05/10/20 07:39 Dose: 1 gm Documented by: Discontinued Medications Al Hydroxide/Mg Hydroxide 15 ml/ Metoclopramide HCl 5 mg/Lidocaine HCl 5 ml 0 ml PO ONETIME ONE Stop: 05/08/20 08:50 Last Admin: 05/08/20 09:36 Dose: Not Given Documented by: Enalapril Maleate (Vasotec) 20 mg PO DAILY [facility] Last Admin: 05/08/20 13:37 Dose: Not Given Documented by: Hydralazine HCl (Apresoline) 25 mg PO TID [facility] Hydrochlorothiazide (Hydrochlorothiazide) 25 mg PO DAILY [facility] Sodium Chloride (Normal Saline) 1,000 mls @ 999 mls/hr IV ASDIRECTED [facility] Sodium Chloride (Normal Saline) 1,000 mls @ 999 mls/hr IV NOW STA Stop: 05/08/20 02:12 Last Admin: 05/08/20 01:16 Dose: 999 mls/hr Documented by: Sodium Chloride (Normal Saline) 1,000 mls @ 999 mls/hr IV ASDIRECTED [facility] Sodium Chloride (Normal Saline) 1,000 mls @ 999 mls/hr IV NOW STA Stop: 05/08/20 02:25 Last Admin: 05/08/20 03:26 Dose: 999 mls/hr Documented by: Lactated Ringer's (Ringers, Lactated) 1,000 mls @ 999 mls/hr IV .BOLUS ONE Stop: 05/10/20 10:50 Last Admin: 05/10/20 10:37 Dose: 999 mls/hr Documented by: [facility] Last Admin: 05/08/20 13:36 Dose: Not Given Documented by: Iopamidol (Isovue-[id number] (76%)) 100 ml IVPUSH ONETIME STA Stop: 05/08/20 01:33 Last Admin: 05/08/20 01:35 Dose: 100 ml Documented by: Lorazepam (Ativan) 1 mg IVPUSH Q6H PRN PRN Reason: Anxiety Last Admin: 05/08/20 06:47 Dose: 1 mg Documented by: Lorazepam (Ativan) 2 mg IVPUSH ONETIME ONE Stop: 05/08/20 08:50 Last Admin: 05/08/20 09:06 Dose: 2 mg Documented by: Lorazepam (Ativan) 1 mg IVPUSH Q4H PRN PRN Reason: Anxiety Last Admin: 05/09/20 16:34 Dose: 1 mg Documented by: [facility] Metoclopramide HCl (Reglan) 5 mg IVPUSH Q4H PRN PRN Reason: Pain Last Admin: 05/10/20 01:25 Dose: 5 mg Documented by: Morphine Sulfate (Morphine) 2 mg IVPUSH ONETIME ONE Stop: 05/08/20 09:24 Last Admin: 05/08/20 09:32 Dose: 2 mg Documented by: Morphine Sulfate (Morphine) 1 mg IVPUSH ONETIME ONE Stop: 05/08/20 13:39 Last Admin: 05/08/20 13:52 Dose: 1 mg Documented by: Morphine Sulfate (Morphine) 2 mg IVPUSH Q4H PRN PRN Reason: Pain Last Admin: 05/10/20 05:35 Dose: 2 mg Documented by: Ondansetron HCl (Zofran Odt) 4 mg PO Q8H PRN PRN Reason: Abdominal Pain Last Admin: 05/09/20 16:34 Dose: 4 mg Documented by: Pantoprazole Sodium (Protonix) 40 mg PO [facility] Last Admin: 05/08/20 13:37 Dose: Not Given Documented by: Promethazine HCl (Phenergan) 12.5 mg IM ONETIME ONE Stop: 05/10/20 09:59 Last Admin: 05/10/20 10:25 Dose: 12.5 mg Documented by: Sepsis Event Note - Focused Exam Vital Signs: Vital Signs Temp Pulse Pulse Resp BP BP Pulse Ox 05/10/20 08:46 105 H 180/103 H 05/10/20 08:43 180/103 H 05/10/20 07:16 36.3 C 100 12 166/98 H 98 05/10/20 04:16 97 176/96 H 05/10/20 03:19 36.4 C 112 H 18 186/100 H 97 05/10/20 01:31 123 H 178/111 H 05/10/20 00:39 36.6 C 110 H 18 188/106 H 97
[2020-05-09] MEDS: hydrALAZINE 20 MG/ML SDV IVPUSH SCH ×4 (10:25→21:00)
--- NOTE | 2020-05-09 13:43 | MR ---
INDICATION: Right-sided facial numbness. TECHNIQUE: Brain MRI without contrast. The following sequences were obtained: 3D T1 weighted sequence. DWI and ADC mapping sequences. Axial FLAIR and AV T2 weighted sequences. COMPARISON: CT head from 05/08/2020. FINDINGS: No evidence of acute ischemia. No evidence of acute or chronic intracranial blood products. No pathologic intracranial signal abnormality. No mass effect or herniation. No hydrocephalus or extra-axial collections. The pituitary gland, parasellar structures and optic chiasm are normal. Posterior fossa is normal. All the major intracranial vascular structures demonstrate normal flow-related signal. Low signal material within the right anterior globe vitreous chamber corresponds to calcification soft tissue density the recent CT. No calvarial or skull base marrow signal abnormality. No obstructive sinus disease. No extracranial soft tissue findings. IMPRESSION: 1. No acute infarction or other acute intracranial abnormality. 2. Normal appearance of the brain parenchyma for age. 3. Abnormal signal within the right globe vitreous chamber corresponds to calcific and soft tissue density material on the recent CT. Correlate for any history of prior ocular trauma or infection. Dictated by Kofi Dan MD @ May 09 2020 1:35PM Signed by Dr. Kofi Dan @ May 09 2020 1:42PM
[2020-05-09] MEDS ORDERED: Labetalol 100 MG/20 ML MDV IVPUSH PRN (19:07)
[2020-05-09] MEDS: atorvaSTATin 40 MG Tab PO SCH (20:59)
[2020-05-09] MEDS ORDERED: hydrALAZINE 25 MG Tab PO SCH (22:00)
[2020-05-10] MEDS: hydrALAZINE 20 MG/ML SDV IVPUSH SCH ×6 (00:34→21:27)
[2020-05-10] MEDS: Metoclopramide 10 MG/2 ML SDV IVPUSH PRN (01:25)
[2020-05-10] MEDS: Morphine 2 MG/ML SYRINGE IVPUSH PRN ×2 (01:26→05:35)
[2020-05-10] MEDS: LORazepam 2 MG/ML SDV IVPUSH PRN ×2 (01:49→06:03)
[2020-05-10] MEDS: Sodium Chloride 0.9% 1,000 ML IV SCH ×3 (04:14→18:32)
[2020-05-10] MEDS: Insulin Aspart 100 Units/ML 3 ML Pen SUBCUT SCH ×4 (06:15→17:10)
[2020-05-10 07:07] LABS: CARBON DIOXIDE,CO2 17.3 mmol/L (21.0-32.0); POTASSIUM,K 4.4 mmol/L (3.5-5.1)
[2020-05-10] MEDS: Sucralfate 1 GM Tab PO SCH ×4 (07:39→21:25)
--- NOTE | 2020-05-10 07:52 | PCM.PN ---
<Hyacinth Giordano - Last Filed: 05/10/20 10:34> - General Info Date of Service: 05/10/20 Subjective Update: Bedside: concerns about persistent abdominal pain - Review of Systems General: Reports: No Symptoms HEENT: Reports: No Symptoms Pulmonary: Reports: No Symptoms Cardiovascular: Reports: No Symptoms Gastrointestinal: Reports: Abdominal Pain, Nausea. Denies: Diarrhea, Difficulty Swallowing, Vomiting Genitourinary: Reports: No Symptoms Musculoskeletal: Reports: No Symptoms Neurological: Reports: No Symptoms Psychiatric: Reports: Depression, Mood Lability - Patient Data Vitals - Most Recent: Last Vital Signs Temp 97.3 F 05/10/20 07:16 Pulse 100 05/10/20 07:16 Resp 12 05/10/20 07:16 BP 166/98 H 05/10/20 07:16 Pulse Ox 98 05/10/20 07:16 Weight - Most Recent: 77.61 kg I&O - Last 24 Hours: Intake & Output 05/09/20 05/10/20 05/10/20 22:59 06:59 14:59 Intake Total 1641 2050 Output Total 720 500 Balance 921 1550 Lab Results Last 24 Hours: Laboratory Results - last 24 hr 05/09/20 05/09/20 05/09/20 Range/Units 06:23 08:37 12:31 WBC (4.0-11.0) K/uL RBC (4.50-5.90) M/uL Hgb (13.0-17.0) g/dL Hct (38.0-50.0) % MCV (80.0-98.0) fL MCH (27.0-32.0) pg MCHC (31.0-37.0) g/dL RDW Std Deviation (28.0-62.0) fl RDW Coeff of Dania (11.0-15.0) % Plt Count (150-400) K/uL MPV (7.40-12.00) fL Neut % (Auto) (48.0-80.0) % Lymph % (Auto) (16.0-40.0) % Berks % (Auto) (0.0-15.0) % Eos % (Auto) (0.0-7.0) % Baso % (Auto) (0.0-1.5) % Neut # (Auto) (1.4-5.7) K/uL Lymph # (Auto) (0.6-2.4) K/uL Berks # (Auto) (0.0-0.8) K/uL Eos # (Auto) (0.0-0.7) K/uL Baso # (Auto) (0.0-0.1) K/uL Nucleated RBC % /100WBC Nucleated RBCs # K/uL Sodium (136-148) mmol/L Potassium (3.5-5.1) mmol/L Chloride (98-107) mmol/L Carbon Dioxide (21.0-32.0) mmol/L BUN (7.0-18.0) mg/dL Creatinine (0.8-1.3) mg/dL Est Cr Clr Drug Dosing mL/min Estimated GFR (MDRD) ml/min Glucose (74-106) mg/dL POC Glucose 219 H 204 H (60-110) mg/dL Calcium (8.5-10.1) mg/dL Iron 42 L (50-175) ug/dL 05/09/20 05/10/20 05/10/20 Range/Units 16:24 01:15 03:15 WBC (4.0-11.0) K/uL RBC (4.50-5.90) M/uL Hgb (13.0-17.0) g/dL Hct (38.0-50.0) % MCV (80.0-98.0) fL MCH (27.0-32.0) pg MCHC (31.0-37.0) g/dL RDW Std Deviation (28.0-62.0) fl RDW Coeff of Dania (11.0-15.0) % Plt Count (150-400) K/uL MPV (7.40-12.00) fL Neut % (Auto) (48.0-80.0) % Lymph % (Auto) (16.0-40.0) % Berks % (Auto) (0.0-15.0) % Eos % (Auto) (0.0-7.0) % Baso % (Auto) (0.0-1.5) % Neut # (Auto) (1.4-5.7) K/uL Lymph # (Auto) (0.6-2.4) K/uL Berks # (Auto) (0.0-0.8) K/uL Eos # (Auto) (0.0-0.7) K/uL Baso # (Auto) (0.0-0.1) K/uL Nucleated RBC % /100WBC Nucleated RBCs # K/uL Sodium (136-148) mmol/L Potassium (3.5-5.1) mmol/L Chloride (98-107) mmol/L Carbon Dioxide (21.0-32.0) mmol/L BUN (7.0-18.0) mg/dL Creatinine (0.8-1.3) mg/dL Est Cr Clr Drug Dosing mL/min Estimated GFR (MDRD) ml/min Glucose (74-106) mg/dL POC Glucose 246 H 221 H 257 H (60-110) mg/dL Calcium (8.5-10.1) mg/dL Iron (50-175) ug/dL 05/10/20 05/10/20 05/10/20 Range/Units 06:12 06:37 06:37 WBC 8.75 (4.0-11.0) K/uL RBC 4.18 L (4.50-5.90) M/uL Hgb 8.8 L (13.0-17.0) g/dL Hct 28.3 L (38.0-50.0) % MCV 67.7 L (80.0-98.0) fL MCH 21.1 L (27.0-32.0) pg MCHC 31.1 (31.0-37.0) g/dL RDW Std Deviation 39.6 (28.0-62.0) fl RDW Coeff of Dania 16 H (11.0-15.0) % Plt Count 380 (150-400) K/uL MPV 10.20 (7.40-12.00) fL Neut % (Auto) 77.9 (48.0-80.0) % Lymph % (Auto) 16.9 (16.0-40.0) % Berks % (Auto) 4.5 (0.0-15.0) % Eos % (Auto) 0.5 (0.0-7.0) % Baso % (Auto) 0.2 (0.0-1.5) % Neut # (Auto) 6.8 H (1.4-5.7) K/uL Lymph # (Auto) 1.5 (0.6-2.4) K/uL Berks # (Auto) 0.4 (0.0-0.8) K/uL Eos # (Auto) 0.0 (0.0-0.7) K/uL Baso # (Auto) 0.0 (0.0-0.1) K/uL Nucleated RBC % 0.0 /100WBC Nucleated RBCs # 0 K/uL Sodium 136 (136-148) mmol/L Potassium 4.4 (3.5-5.1) mmol/L Chloride 107 (98-107) mmol/L Carbon Dioxide 17.3 L (21.0-32.0) mmol/L BUN 32 H (7.0-18.0) mg/dL Creatinine 4.3 H (0.8-1.3) mg/dL Est Cr Clr Drug Dosing 23.42 mL/min Estimated GFR (MDRD) 19.3 ml/min Glucose 278 H (74-106) mg/dL POC Glucose 257 H (60-110) mg/dL Calcium 7.8 L (8.5-10.1) mg/dL Iron (50-175) ug/dL Med Orders - Current: Current Medications Acetaminophen (Tylenol) 650 mg PO Q6H PRN PRN Reason: Pain Last Admin: 05/09/20 06:07 Dose: 650 mg Documented by: Amlodipine Besylate (Norvasc) 10 mg PO DAILY [facility] Last Admin: 05/09/20 08:41 Dose: 10 mg Documented by: Aspirin (Halfprin) 81 mg PO DAILY [facility] Last Admin: 05/09/20 08:40 Dose: 81 mg Documented by: Atorvastatin Calcium (Lipitor) 80 mg PO BEDTIME [facility] Last Admin: 05/09/20 20:59 Dose: 80 mg Documented by: Hydralazine HCl (Apresoline) 10 mg IVPUSH Q4H [facility] Last Admin: 05/10/20 05:34 Dose: 10 mg Documented by: Pantoprazole Sodium 40 mg/ (Sodium Chloride) 10 mls @ 300 mls/hr IV Q24H [facility] Last Admin: 05/09/20 08:43 Dose: 300 mls/hr Documented by: Sodium Chloride (Normal Saline) 1,000 mls @ 125 mls/hr IV Q8H [facility] Last Admin: 05/10/20 04:14 Dose: 125 mls/hr Documented by: Insulin Aspart (Novolog) 0 unit SUBCUT TIDAC [facility]; Protocol Last Admin: 05/10/20 07:38 Dose: Not Given Documented by: Labetalol HCl (Normodyne) 10 mg IVPUSH Q4H PRN; Protocol PRN Reason: Hypertension Last Admin: 05/10/20 03:21 Dose: 10 mg Documented by: Lorazepam (Ativan) 2 mg IVPUSH Q4H PRN PRN Reason: Anxiety Last Admin: 05/10/20 06:03 Dose: 2 mg Documented by: Metoclopramide HCl (Reglan) 5 mg IVPUSH Q4H PRN PRN Reason: Pain Last Admin: 05/10/20 01:25 Dose: 5 mg Documented by: Metoprolol Succinate (Toprol Xl) 200 mg PO DAILY [facility] Morphine Sulfate (Morphine) 2 mg IVPUSH Q4H PRN PRN Reason: Pain Last Admin: 05/10/20 05:35 Dose: 2 mg Documented by: Ondansetron HCl (Zofran) 4 mg IVPUSH Q4H PRN PRN Reason: Nausea Last Admin: 05/09/20 10:58 Dose: 4 mg Documented by: Sertraline HCl (Zoloft) 50 mg PO DAILY [facility] Last Admin: 05/09/20 08:41 Dose: 50 mg Documented by: Sodium Chloride (Saline Flush) 10 ml FLUSH ASDIRECTED PRN PRN Reason: Keep Vein Open Sodium Chloride (Saline Flush) 2.5 ml FLUSH ASDIRECTED PRN PRN Reason: Keep Vein Open Sodium Chloride (Normal Saline) 10 ml IV ASDIRECTED PRN PRN Reason: IV Use Sucralfate (Carafate) 1 gm PO QIDACANDBED [facility] Last Admin: 05/10/20 07:39 Dose: 1 gm Documented by: Discontinued Medications Al Hydroxide/Mg Hydroxide 15 ml/ Metoclopramide HCl 5 mg/Lidocaine HCl 5 ml 0 ml PO ONETIME ONE Stop: 05/08/20 08:50 Last Admin: 05/08/20 09:36 Dose: Not Given Documented by: Enalapril Maleate (Vasotec) 20 mg PO DAILY [facility] Last Admin: 05/08/20 13:37 Dose: Not Given Documented by: Hydralazine HCl (Apresoline) 25 mg PO TID [facility] Hydrochlorothiazide (Hydrochlorothiazide) 25 mg PO DAILY [facility] Sodium Chloride (Normal Saline) 1,000 mls @ 999 mls/hr IV ASDIRECTED [facility] Sodium Chloride (Normal Saline) 1,000 mls @ 999 mls/hr IV NOW STA Stop: 05/08/20 02:12 Last Admin: 05/08/20 01:16 Dose: 999 mls/hr Documented by: Sodium Chloride (Normal Saline) 1,000 mls @ 999 mls/hr IV ASDIRECTED [facility] Sodium Chloride (Normal Saline) 1,000 mls @ 999 mls/hr IV NOW STA Stop: 05/08/20 02:25 Last Admin: 05/08/20 03:26 Dose: 999 mls/hr Documented by: Insulin Aspart (Novolog) 0 unit SUBCUT TIDAC [facility]; Protocol Last Admin: 05/08/20 13:36 Dose: Not Given Documented by: Iopamidol (Isovue-370 (76%)) 100 ml IVPUSH ONETIME STA Stop: 05/08/20 01:33 Last Admin: 05/08/20 01:35 Dose: 100 ml Documented by: Lorazepam (Ativan) 1 mg IVPUSH Q6H PRN PRN Reason: Anxiety Last Admin: 05/08/20 06:47 Dose: 1 mg Documented by: Lorazepam (Ativan) 2 mg IVPUSH ONETIME ONE Stop: 05/08/20 08:50 Last Admin: 05/08/20 09:06 Dose: 2 mg Documented by: Lorazepam (Ativan) 1 mg IVPUSH Q4H PRN PRN Reason: Anxiety Last Admin: 05/09/20 16:34 Dose: 1 mg Documented by: Metoclopramide HCl (Reglan) 5 mg PO TIDAC [facility] Morphine Sulfate (Morphine) 2 mg IVPUSH ONETIME ONE Stop: 05/08/20 09:24 Last Admin: 05/08/20 09:32 Dose: 2 mg Documented by: Morphine Sulfate (Morphine) 1 mg IVPUSH ONETIME ONE Stop: 05/08/20 13:39 Last Admin: 05/08/20 13:52 Dose: 1 mg Documented by: Ondansetron HCl (Zofran Odt) 4 mg PO Q8H PRN PRN Reason: Abdominal Pain Last Admin: 05/09/20 16:34 Dose: 4 mg Documented by: Pantoprazole Sodium (Protonix) 40 mg PO ACBREAKFAST [facility] Last Admin: 05/08/20 13:37 Dose: Not Given Documented by: - Exam General: Alert, Oriented, Mild Distress HEENT: EOMI Neck: Supple Lungs: Clear to Auscultation, Normal Respiratory Effort Cardiovascular: Regular Rate, Regular Rhythm GI/Abdominal Exam: Soft, Non-Tender Extremities: Normal Inspection Skin: Warm, Dry Neurological: No New Focal Deficit Psy/Mental Status: Alert Sepsis Event Note - Evaluation Sepsis Screening Result: No Definite Risk - Focused Exam Vital Signs: Vital Signs Temp Pulse Resp BP Pulse Ox 05/10/20 07:16 97.3 F 100 12 166/98 H 98 05/10/20 04:16 97 176/96 H 05/10/20 03:19 97.5 F 112 H 18 186/100 H 97 05/10/20 01:31 123 H 178/111 H 05/10/20 00:39 97.9 F 110 H 18 188/106 H 97 - Problem List Review Problem List Initiated/Reviewed/Updated: Yes - My Orders Last 24 Hours: My Active Orders 05/09/20 09:15 hydrALAZINE [Apresoline] 10 mg IVPUSH Q4H 05/09/20 17:11 LORazepam [Ativan] 2 mg IVPUSH Q4H PRN 05/09/20 19:07 Labetalol [Normodyne] 10 mg IVPUSH Q4H PRN 05/10/20 09:00 Metoprolol Succinate [Metoprolol Succinate] 200 mg PO DAILY - Plan Plan:: Assessment: 1. New onset Neurological deficits on admission: concerns for TIA/Stroke 2. Type 1 DM: non-compliant with medications 3. elevated BP w. dx of HTN 4. acute on chronic CKD. 5. PMH: s/p BKA, prior stroke history. 6. Microcytic anemia Plan. Change status to Inpatient. Full code. I/o per routine. Vitals per routine Bed rest Diet :diabetic +low potassium N+V: reglan+pantoprazole+phenergan Pain control:switch to Dilaudid 1. Neuro Deficits: at bedside, no signs of CN deficits; MRI brain w.o contrast s uggests no acute signs of ischemia/mass effect HTN: BP elevated this AM; restarted Metoprolol+ spironolactone; continue Hydralazine on top of amlodipine; will reassess throughout day for further medication escalation e.g starting Cardura as well) +1 L bolus of NS given as well Overnight need for PRN Labetalol 10 dose Cr worsening : will be more aggressive with BP control since concerns for TIA/Stroke are lessened w. negative MRI brain and no acute CN deficits Mildly hyperkalemic: receiving SSI but will start on Low potassium diet; most likely secondary to worsening kidney function Pain control: dc Morphine; starting Dilaudid+ Phenergan and scheduling Reglan. DM: continue SSI; a1c 8.0; improved from October; stricter glycemic control necessary however in light of worsening Kidney function; increased SSI to high dose protocol (pt. 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 Depression/anxiety: persistent tearfulness; when asked, suggests pain being cause for behavior; currently on Sertraline 50 mg daily (unknown medication compliance) Will need to medically stabilize pt. prior to psych consult being pursued <Gini Means - Last Filed: 05/10/20 11:06> - General Info Subjective Update: I have seen and evaluated the patient and agree with the residents note unless specified in my note - Patient Data Vitals - Most Recent: Last Vital Signs Temp 36.3 C 05/10/20 07:16 Pulse 105 H 05/10/20 08:46 Resp 12 05/10/20 07:16 BP 180/103 H 05/10/20 08:46 Pulse Ox 98 05/10/20 07:16 I&O - Last 24 Hours: Intake & Output 05/09/20 05/10/20 05/10/20 22:59 06:59 14:59 Intake Total 1641 2050 Output Total 720 500 Balance 921 1550 Lab Results Last 24 Hours: Laboratory Results - last 24 hr 05/09/20 05/09/20 05/10/20 Range/Units 12:31 16:24 01:15 WBC (4.0-11.0) K/uL RBC (4.50-5.90) M/uL Hgb (13.0-17.0) g/dL Hct (38.0-50.0) % MCV (80.0-98.0) fL MCH (27.0-32.0) pg MCHC (31.0-37.0) g/dL RDW Std Deviation (28.0-62.0) fl RDW Coeff of Dania (11.0-15.0) % Plt Count (150-400) K/uL MPV (7.40-12.00) fL Neut % (Auto) (48.0-80.0) % Lymph % (Auto) (16.0-40.0) % Berks % (Auto) (0.0-15.0) % Eos % (Auto) (0.0-7.0) % Baso % (Auto) (0.0-1.5) % Neut # (Auto) (1.4-5.7) K/uL Lymph # (Auto) (0.6-2.4) K/uL Berks # (Auto) (0.0-0.8) K/uL Eos # (Auto) (0.0-0.7) K/uL Baso # (Auto) (0.0-0.1) K/uL Nucleated RBC % /100WBC Nucleated RBCs # K/uL Sodium (136-148) mmol/L Potassium (3.5-5.1) mmol/L Chloride (98-107) mmol/L Carbon Dioxide (21.0-32.0) mmol/L BUN (7.0-18.0) mg/dL Creatinine (0.8-1.3) mg/dL Est Cr Clr Drug Dosing mL/min Estimated GFR (MDRD) ml/min Glucose (74-106) mg/dL POC Glucose 204 H 246 H 221 H (60-110) mg/dL Calcium (8.5-10.1) mg/dL 05/10/20 05/10/20 05/10/20 Range/Units 03:15 06:12 06:37 WBC 8.75 (4.0-11.0) K/uL RBC 4.18 L (4.50-5.90) M/uL Hgb 8.8 L (13.0-17.0) g/dL Hct 28.3 L (38.0-50.0) % MCV 67.7 L (80.0-98.0) fL MCH 21.1 L (27.0-32.0) pg MCHC 31.1 (31.0-37.0) g/dL RDW Std Deviation 39.6 (28.0-62.0) fl RDW Coeff of Dania 16 H (11.0-15.0) % Plt Count 380 (150-400) K/uL MPV 10.20 (7.40-12.00) fL Neut % (Auto) 77.9 (48.0-80.0) % Lymph % (Auto) 16.9 (16.0-40.0) % Berks % (Auto) 4.5 (0.0-15.0) % Eos % (Auto) 0.5 (0.0-7.0) % Baso % (Auto) 0.2 (0.0-1.5) % Neut # (Auto) 6.8 H (1.4-5.7) K/uL Lymph # (Auto) 1.5 (0.6-2.4) K/uL Berks # (Auto) 0.4 (0.0-0.8) K/uL Eos # (Auto) 0.0 (0.0-0.7) K/uL Baso # (Auto) 0.0 (0.0-0.1) K/uL Nucleated RBC % 0.0 /100WBC Nucleated RBCs # 0 K/uL Sodium (136-148) mmol/L Potassium (3.5-5.1) mmol/L Chloride (98-107) mmol/L Carbon Dioxide (21.0-32.0) mmol/L BUN (7.0-18.0) mg/dL Creatinine (0.8-1.3) mg/dL Est Cr Clr Drug Dosing mL/min Estimated GFR (MDRD) ml/min Glucose (74-106) mg/dL POC Glucose 257 H 257 H (60-110) mg/dL Calcium (8.5-10.1) mg/dL 05/10/20 Range/Units 06:37 WBC (4.0-11.0) K/uL RBC (4.50-5.90) M/uL Hgb (13.0-17.0) g/dL Hct (38.0-50.0) % MCV (80.0-98.0) fL MCH (27.0-32.0) pg MCHC (31.0-37.0) g/dL RDW Std Deviation (28.0-62.0) fl RDW Coeff of Dania (11.0-15.0) % Plt Count (150-400) K/uL MPV (7.40-12.00) fL Neut % (Auto) (48.0-80.0) % Lymph % (Auto) (16.0-40.0) % Berks % (Auto) (0.0-15.0) % Eos % (Auto) (0.0-7.0) % Baso % (Auto) (0.0-1.5) % Neut # (Auto) (1.4-5.7) K/uL Lymph # (Auto) (0.6-2.4) K/uL Berks # (Auto) (0.0-0.8) K/uL Eos # (Auto) (0.0-0.7) K/uL Baso # (Auto) (0.0-0.1) K/uL Nucleated RBC % /100WBC Nucleated RBCs # K/uL Sodium 136 (136-148) mmol/L Potassium 4.4 (3.5-5.1) mmol/L Chloride 107 (98-107) mmol/L Carbon Dioxide 17.3 L (21.0-32.0) mmol/L BUN 32 H (7.0-18.0) mg/dL Creatinine 4.3 H (0.8-1.3) mg/dL Est Cr Clr Drug Dosing 23.42 mL/min Estimated GFR (MDRD) 19.3 ml/min Glucose 278 H (74-106) mg/dL POC Glucose (60-110) mg/dL Calcium 7.8 L (8.5-10.1) mg/dL Med Orders - Current: Current Medications Acetaminophen (Tylenol) 650 mg PO Q6H PRN PRN Reason: Pain Last Admin: 05/09/20 06:07 Dose: 650 mg Documented by: Amlodipine Besylate (Norvasc) 10 mg PO DAILY [facility] Last Admin: 05/10/20 08:43 Dose: 10 mg Documented by: Aspirin (Halfprin) 81 mg PO DAILY [facility] Last Admin: 05/10/20 08:42 Dose: 81 mg Documented by: Atorvastatin Calcium (Lipitor) 80 mg PO BEDTIME [facility] Last Admin: 05/09/20 20:59 Dose: 80 mg Documented by: Hydralazine HCl (Apresoline) 10 mg IVPUSH Q4H [facility] Last Admin: 05/10/20 09:05 Dose: 10 mg Documented by: Hydromorphone HCl (Dilaudid) 1 mg IVPUSH Q4H PRN PRN Reason: Pain Last Admin: 05/10/20 10:31 Dose: 1 mg Documented by: Pantoprazole Sodium 40 mg/ (Sodium Chloride) 10 mls @ 300 mls/hr IV Q24H [facility] Last Admin: 05/10/20 09:08 Dose: 300 mls/hr Documented by: Sodium Chloride (Normal Saline) 1,000 mls @ 125 mls/hr IV Q8H [facility] Last Admin: 05/10/20 04:14 Dose: 125 mls/hr Documented by: Insulin Aspart (Novolog) 0 unit SUBCUT TIDAC [facility]; Protocol Last Admin: 05/10/20 07:38 Dose: Not Given Documented by: Labetalol HCl (Normodyne) 10 mg IVPUSH Q4H PRN; Protocol PRN Reason: Hypertension Last Admin: 05/10/20 03:21 Dose: 10 mg Documented by: Lorazepam (Ativan) 2 mg IVPUSH Q4H PRN PRN Reason: Anxiety Last Admin: 05/10/20 06:03 Dose: 2 mg Documented by: Metoclopramide HCl (Reglan) 5 mg IVPUSH Q6H [facility] Last Admin: 05/10/20 10:23 Dose: 5 mg Documented by: Metoprolol Succinate (Toprol Xl) 200 mg PO DAILY [facility] Last Admin: 05/10/20 08:46 Dose: 200 mg Documented by: Ondansetron HCl (Zofran) 4 mg IVPUSH Q4H PRN PRN Reason: Nausea Last Admin: 05/09/20 10:58 Dose: 4 mg Documented by: Sertraline HCl (Zoloft) 50 mg PO DAILY [facility] Last Admin: 05/10/20 08:43 Dose: Not Given Documented by: Sodium Chloride (Saline Flush) 10 ml FLUSH ASDIRECTED PRN PRN Reason: Keep Vein Open Sodium Chloride (Saline Flush) 2.5 ml FLUSH ASDIRECTED PRN PRN Reason: Keep Vein Open Sodium Chloride (Normal Saline) 10 ml IV ASDIRECTED PRN PRN Reason: IV Use Spironolactone (Aldactone) 25 mg PO BID [facility] Last Admin: 05/10/20 10:22 Dose: 25 mg Documented by: Sucralfate (Carafate) 1 gm PO QIDACANDBED [facility] Last Admin: 05/10/20 07:39 Dose: 1 gm Documented by: Discontinued Medications Al Hydroxide/Mg Hydroxide 15 ml/ Metoclopramide HCl 5 mg/Lidocaine HCl 5 ml 0 ml PO ONETIME ONE Stop: 05/08/20 08:50 Last Admin: 05/08/20 09:36 Dose: Not Given Documented by: Enalapril Maleate (Vasotec) 20 mg PO DAILY [facility] Last Admin: 05/08/20 13:37 Dose: Not Given Documented by: Hydralazine HCl (Apresoline) 25 mg PO TID [facility] Hydrochlorothiazide (Hydrochlorothiazide) 25 mg PO DAILY [facility] Sodium Chloride (Normal Saline) 1,000 mls @ 999 mls/hr IV ASDIRECTED [facility] Sodium Chloride (Normal Saline) 1,000 mls @ 999 mls/hr IV NOW STA Stop: 05/08/20 02:12 Last Admin: 05/08/20 01:16 Dose: 999 mls/hr Documented by: Sodium Chloride (Normal Saline) 1,000 mls @ 999 mls/hr IV ASDIRECTED [facility] Sodium Chloride (Normal Saline) 1,000 mls @ 999 mls/hr IV NOW STA Stop: 05/08/20 02:25 Last Admin: 05/08/20 03:26 Dose: 999 mls/hr Documented by: Lactated Ringer's (Ringers, Lactated) 1,000 mls @ 999 mls/hr IV .BOLUS ONE Stop: 05/10/20 10:50 Last Admin: 05/10/20 10:37 Dose: 999 mls/hr Documented by: Insulin Aspart (Novolog) 0 unit SUBCUT TIDAC [facility]; Protocol Last Admin: 05/08/20 13:36 Dose: Not Given Documented by: Iopamidol (Isovue-370 (76%)) 100 ml IVPUSH ONETIME STA Stop: 05/08/20 01:33 Last Admin: 05/08/20 01:35 Dose: 100 ml Documented by: Lorazepam (Ativan) 1 mg IVPUSH Q6H PRN PRN Reason: Anxiety Last Admin: 05/08/20 06:47 Dose: 1 mg Documented by: Lorazepam (Ativan) 2 mg IVPUSH ONETIME ONE Stop: 05/08/20 08:50 Last Admin: 05/08/20 09:06 Dose: 2 mg Documented by: Lorazepam (Ativan) 1 mg IVPUSH Q4H PRN PRN Reason: Anxiety Last Admin: 05/09/20 16:34 Dose: 1 mg Documented by: Metoclopramide HCl (Reglan) 5 mg PO TIDAC [facility] Metoclopramide HCl (Reglan) 5 mg IVPUSH Q4H PRN PRN Reason: Pain Last Admin: 05/10/20 01:25 Dose: 5 mg Documented by: Morphine Sulfate (Morphine) 2 mg IVPUSH ONETIME ONE Stop: 05/08/20 09:24 Last Admin: 05/08/20 09:32 Dose: 2 mg Documented by: Morphine Sulfate (Morphine) 1 mg IVPUSH ONETIME ONE Stop: 05/08/20 13:39 Last Admin: 05/08/20 13:52 Dose: 1 mg Documented by: Morphine Sulfate (Morphine) 2 mg IVPUSH Q4H PRN PRN Reason: Pain Last Admin: 05/10/20 05:35 Dose: 2 mg Documented by: Ondansetron HCl (Zofran Odt) 4 mg PO Q8H PRN PRN Reason: Abdominal Pain Last Admin: 05/09/20 16:34 Dose: 4 mg Documented by: Pantoprazole Sodium (Protonix) 40 mg PO ACBREAKFAST [facility] Last Admin: 05/08/20 13:37 Dose: Not Given Documented by: Promethazine HCl (Phenergan) 12.5 mg IM ONETIME ONE Stop: 05/10/20 09:59 Last Admin: 05/10/20 10:25 Dose: 12.5 mg Documented by: Sepsis Event Note - Focused Exam Vital Signs: Vital Signs Temp Pulse Pulse Resp BP BP Pulse Ox 05/10/20 08:46 105 H 180/103 H 05/10/20 08:43 180/103 H 05/10/20 07:16 36.3 C 100 12 166/98 H 98 05/10/20 04:16 97 176/96 H 05/10/20 03:19 36.4 C 112 H 18 186/100 H 97 05/10/20 01:31 123 H 178/111 H 05/10/20 00:39 36.6 C 110 H 18 188/106 H 97
[2020-05-10] MEDS: Aspirin 81 MG Tab.EC PO SCH (08:42)
[2020-05-10] MEDS: amLODIPine 5 MG Tab PO SCH (08:43)
[2020-05-10] MEDS: Sertraline 50 MG Tab PO SCH ×2 (08:43)
[2020-05-10] MEDS: Metoprolol Succinate 100 MG Tab.ER PO SCH (08:46)
[2020-05-10] MEDS: Pantoprazole 40 MG in Sodium Chloride 0.9% 10 ML IV SCH (09:08)
[2020-05-10] MEDS ORDERED: Lactated Ringers 1,000 ML IV ONE (09:50)
[2020-05-10] MEDS ORDERED: Promethazine 25 MG/ML SDV IM ONE (09:58)
[2020-05-10] MEDS: Spironolactone 25 MG Tab PO SCH ×2 (10:22→21:25)
[2020-05-10] MEDS: Metoclopramide 10 MG/2 ML SDV IVPUSH SCH ×3 (10:23→21:26)
[2020-05-10] MEDS: HYDROmorphone 1 MG/ML Syringe IVPUSH PRN ×3 (10:31→20:12)
[2020-05-10] MEDS: atorvaSTATin 40 MG Tab PO SCH (21:24)
[2020-05-11] MEDS ORDERED: Insulin Aspart 100 Units/ML 3 ML Pen SUBCUT ONE (00:42)
[2020-05-11] MEDS: HYDROmorphone 1 MG/ML Syringe IVPUSH PRN ×6 (01:43→21:56)
[2020-05-11] MEDS: hydrALAZINE 20 MG/ML SDV IVPUSH SCH ×6 (01:44→20:32)
--- NOTE | 2020-05-11 01:58 | PCM.SN.2 ---
- Free Text/Narrative Note: Called to med/surg for an IV start. Patient ID confirmed. Consent obtained. TQ applied to right arm. Site cleansed with chloraprep. 20g IV to right AC on first attempt. Flushes well. Dressing applied. Care to bedside RN.
[2020-05-11] MEDS: Metoclopramide 10 MG/2 ML SDV IVPUSH SCH ×4 (04:20→21:57)
[2020-05-11] MEDS: Sodium Chloride 0.9% 1,000 ML IV SCH ×2 (05:52→21:16)
[2020-05-11 06:22] LABS: POTASSIUM,K 4.7 mmol/L (3.5-5.1)
[2020-05-11] MEDS: Insulin Aspart 100 Units/ML 3 ML Pen SUBCUT SCH ×3 (07:39→17:44)
[2020-05-11] MEDS: Heparin Sodium 5,000 Units/ML Vial SUBCUT SCH ×2 (07:52→18:59)
[2020-05-11] MEDS: Sucralfate 1 GM Tab PO SCH ×4 (07:53→20:30)
--- NOTE | 2020-05-11 09:05 | PCM.PN ---
<Hyacinth Giordano - Last Filed: 05/11/20 10:34> - General Info Date of Service: 05/11/20 Subjective Update: Bedside: walking around room; no apparent distress; improved mentation and affect compared to yesterday; endorses abdominal pain but unchanged from yesterday; otherwise would like to continue walking around hallways - Review of Systems General: Reports: No Symptoms HEENT: Reports: No Symptoms Pulmonary: Reports: No Symptoms Cardiovascular: Reports: No Symptoms Gastrointestinal: Reports: Abdominal Pain, Nausea. Denies: Decreased Appetite, Diarrhea, Vomiting Genitourinary: Reports: No Symptoms Musculoskeletal: Reports: No Symptoms Skin: Reports: No Symptoms Neurological: Reports: No Symptoms. Denies: Dizziness, Headache, Numbness, Paresthesia Psychiatric: Reports: No Symptoms - Patient Data Vitals - Most Recent: Last Vital Signs Temp 97.0 F 05/11/20 08:00 Pulse 89 05/11/20 08:00 Resp 18 05/11/20 08:00 BP 153/89 H 05/11/20 08:00 Pulse Ox 95 05/11/20 08:00 Weight - Most Recent: 77.61 kg I&O - Last 24 Hours: Intake & Output 05/10/20 05/11/20 05/11/20 22:59 06:59 14:59 Intake Total 2936 2400 Output Total 1250 Balance 2936 1150 Lab Results Last 24 Hours: Laboratory Results - last 24 hr 05/10/20 05/10/20 05/10/20 Range/Units 11:49 17:03 17:08 WBC (4.0-11.0) K/uL RBC (4.50-5.90) M/uL Hgb (13.0-17.0) g/dL Hct (38.0-50.0) % MCV (80.0-98.0) fL MCH (27.0-32.0) pg MCHC (31.0-37.0) g/dL RDW Std Deviation (28.0-62.0) fl RDW Coeff of Dania (11.0-15.0) % Plt Count (150-400) K/uL MPV (7.40-12.00) fL Neut % (Auto) (48.0-80.0) % Lymph % (Auto) (16.0-40.0) % Fountain % (Auto) (0.0-15.0) % Eos % (Auto) (0.0-7.0) % Baso % (Auto) (0.0-1.5) % Neut # (Auto) (1.4-5.7) K/uL Lymph # (Auto) (0.6-2.4) K/uL Fountain # (Auto) (0.0-0.8) K/uL Eos # (Auto) (0.0-0.7) K/uL Baso # (Auto) (0.0-0.1) K/uL Nucleated RBC % /100WBC Nucleated RBCs # K/uL Sodium (136-148) mmol/L Potassium (3.5-5.1) mmol/L Chloride (98-107) mmol/L Carbon Dioxide (21.0-32.0) mmol/L BUN (7.0-18.0) mg/dL Creatinine (0.8-1.3) mg/dL Est Cr Clr Drug Dosing mL/min Estimated GFR (MDRD) ml/min Glucose (74-106) mg/dL POC Glucose 92 89 (60-110) mg/dL Calcium (8.5-10.1) mg/dL Ur Random Creatinine 94.5 mg/dL Ur Random Sodium 63.0 (40.0-220.0) mmol/L 05/11/20 05/11/20 05/11/20 Range/Units 00:33 04:10 04:39 WBC (4.0-11.0) K/uL RBC (4.50-5.90) M/uL Hgb (13.0-17.0) g/dL Hct (38.0-50.0) % MCV (80.0-98.0) fL MCH (27.0-32.0) pg MCHC (31.0-37.0) g/dL RDW Std Deviation (28.0-62.0) fl RDW Coeff of Dania (11.0-15.0) % Plt Count (150-400) K/uL MPV (7.40-12.00) fL Neut % (Auto) (48.0-80.0) % Lymph % (Auto) (16.0-40.0) % Fountain % (Auto) (0.0-15.0) % Eos % (Auto) (0.0-7.0) % Baso % (Auto) (0.0-1.5) % Neut # (Auto) (1.4-5.7) K/uL Lymph # (Auto) (0.6-2.4) K/uL Fountain # (Auto) (0.0-0.8) K/uL Eos # (Auto) (0.0-0.7) K/uL Baso # (Auto) (0.0-0.1) K/uL Nucleated RBC % /100WBC Nucleated RBCs # K/uL Sodium (136-148) mmol/L Potassium (3.5-5.1) mmol/L Chloride (98-107) mmol/L Carbon Dioxide (21.0-32.0) mmol/L BUN (7.0-18.0) mg/dL Creatinine (0.8-1.3) mg/dL Est Cr Clr Drug Dosing mL/min Estimated GFR (MDRD) ml/min Glucose (74-106) mg/dL POC Glucose 244 H 67 62 (60-110) mg/dL Calcium (8.5-10.1) mg/dL Ur Random Creatinine mg/dL Ur Random Sodium (40.0-220.0) mmol/L 05/11/20 05/11/20 05/11/20 Range/Units 05:46 05:46 05:47 WBC 10.41 (4.0-11.0) K/uL RBC 4.22 L (4.50-5.90) M/uL Hgb 8.8 L (13.0-17.0) g/dL Hct 28.6 L (38.0-50.0) % MCV 67.8 L (80.0-98.0) fL MCH 20.9 L (27.0-32.0) pg MCHC 30.8 L (31.0-37.0) g/dL RDW Std Deviation 39.6 (28.0-62.0) fl RDW Coeff of Dania 16 H (11.0-15.0) % Plt Count 306 (150-400) K/uL MPV 10.70 (7.40-12.00) fL Neut % (Auto) 78.4 (48.0-80.0) % Lymph % (Auto) 14.9 L (16.0-40.0) % Fountain % (Auto) 5.4 (0.0-15.0) % Eos % (Auto) 1.0 (0.0-7.0) % Baso % (Auto) 0.3 (0.0-1.5) % Neut # (Auto) 8.2 H (1.4-5.7) K/uL Lymph # (Auto) 1.6 (0.6-2.4) K/uL Fountain # (Auto) 0.6 (0.0-0.8) K/uL Eos # (Auto) 0.1 (0.0-0.7) K/uL Baso # (Auto) 0.0 (0.0-0.1) K/uL Nucleated RBC % 0.0 /100WBC Nucleated RBCs # 0 K/uL Sodium 134 L (136-148) mmol/L Potassium 4.7 (3.5-5.1) mmol/L Chloride 106 (98-107) mmol/L Carbon Dioxide 15.0 L (21.0-32.0) mmol/L BUN 31 H (7.0-18.0) mg/dL Creatinine 4.5 H (0.8-1.3) mg/dL Est Cr Clr Drug Dosing 22.38 mL/min Estimated GFR (MDRD) 18.3 ml/min Glucose 121 H (74-106) mg/dL POC Glucose 106 (60-110) mg/dL Calcium 7.9 L (8.5-10.1) mg/dL Ur Random Creatinine mg/dL Ur Random Sodium (40.0-220.0) mmol/L Med Orders - Current: Current Medications Acetaminophen (Tylenol) 650 mg PO Q6H PRN PRN Reason: Pain Last Admin: 05/09/20 06:07 Dose: 650 mg Documented by: Amlodipine Besylate (Norvasc) 10 mg PO DAILY [facility] Last Admin: 05/10/20 08:43 Dose: 10 mg Documented by: Aspirin (Halfprin) 81 mg PO DAILY [facility] Last Admin: 05/10/20 08:42 Dose: 81 mg Documented by: Atorvastatin Calcium (Lipitor) 80 mg PO BEDTIME [facility] Last Admin: 05/10/20 21:24 Dose: 80 mg Documented by: Heparin Sodium (Porcine) (Heparin Sodium) 5,000 units SUBCUT Q12H [facility] Last Admin: 05/11/20 07:52 Dose: 5,000 units Documented by: Hydralazine HCl (Apresoline) 10 mg IVPUSH Q4H [facility] Last Admin: 05/11/20 04:19 Dose: 10 mg Documented by: Hydromorphone HCl (Dilaudid) 1 mg IVPUSH Q4H PRN PRN Reason: Pain Last Admin: 05/11/20 05:52 Dose: 1 mg Documented by: Pantoprazole Sodium 40 mg/ (Sodium Chloride) 10 mls @ 300 mls/hr IV Q24H [facility] Last Admin: 05/10/20 09:08 Dose: 300 mls/hr Documented by: Sodium Chloride (Normal Saline) 1,000 mls @ 125 mls/hr IV Q8H [facility] Last Admin: 05/11/20 05:52 Dose: 125 mls/hr Documented by: Insulin Aspart (Novolog) 0 unit SUBCUT TIDAC [facility]; Protocol Last Admin: 05/11/20 07:39 Dose: Not Given Documented by: Labetalol HCl (Normodyne) 10 mg IVPUSH Q4H PRN; Protocol PRN Reason: Hypertension Last Admin: 05/10/20 03:21 Dose: 10 mg Documented by: Lorazepam (Ativan) 2 mg IVPUSH Q4H PRN PRN Reason: Anxiety Last Admin: 05/10/20 06:03 Dose: 2 mg Documented by: Metoclopramide HCl (Reglan) 5 mg IVPUSH Q6H [facility] Last Admin: 05/11/20 04:20 Dose: 5 mg Documented by: Metoprolol Succinate (Toprol Xl) 200 mg PO DAILY [facility] Last Admin: 05/10/20 08:46 Dose: 200 mg Documented by: Ondansetron HCl (Zofran) 4 mg IVPUSH Q4H PRN PRN Reason: Nausea Last Admin: 05/09/20 10:58 Dose: 4 mg Documented by: Sertraline HCl (Zoloft) 50 mg PO DAILY [facility] Last Admin: 05/10/20 08:43 Dose: Not Given Documented by: Sodium Chloride (Saline Flush) 10 ml FLUSH ASDIRECTED PRN PRN Reason: Keep Vein Open Sodium Chloride (Saline Flush) 2.5 ml FLUSH ASDIRECTED PRN PRN Reason: Keep Vein Open Sodium Chloride (Normal Saline) 10 ml IV ASDIRECTED PRN PRN Reason: IV Use Spironolactone (Aldactone) 25 mg PO BID [facility] Last Admin: 05/10/20 21:25 Dose: 25 mg Documented by: Sucralfate (Carafate) 1 gm PO QIDACANDBED [facility] Last Admin: 05/11/20 07:53 Dose: 1 gm Documented by: Discontinued Medications Al Hydroxide/Mg Hydroxide 15 ml/ Metoclopramide HCl 5 mg/Lidocaine HCl 5 ml 0 ml PO ONETIME ONE Stop: 05/08/20 08:50 Last Admin: 05/08/20 09:36 Dose: Not Given Documented by: Enalapril Maleate (Vasotec) 20 mg PO DAILY [facility] Last Admin: 05/08/20 13:37 Dose: Not Given Documented by: Hydralazine HCl (Apresoline) 25 mg PO TID [facility] Hydrochlorothiazide (Hydrochlorothiazide) 25 mg PO DAILY [facility] Sodium Chloride (Normal Saline) 1,000 mls @ 999 mls/hr IV ASDIRECTED [facility] Sodium Chloride (Normal Saline) 1,000 mls @ 999 mls/hr IV NOW STA Stop: 05/08/20 02:12 Last Admin: 05/08/20 01:16 Dose: 999 mls/hr Documented by: Sodium Chloride (Normal Saline) 1,000 mls @ 999 mls/hr IV ASDIRECTED [facility] Sodium Chloride (Normal Saline) 1,000 mls @ 999 mls/hr IV NOW STA Stop: 05/08/20 02:25 Last Admin: 05/08/20 03:26 Dose: 999 mls/hr Documented by: Lactated Ringer's (Ringers, Lactated) 1,000 mls @ 999 mls/hr IV .BOLUS ONE Stop: 05/10/20 10:50 Last Admin: 05/10/20 10:37 Dose: 999 mls/hr Documented by: Insulin Aspart (Novolog) 0 unit SUBCUT TIDAC [facility]; Protocol Last Admin: 05/08/20 13:36 Dose: Not Given Documented by: Insulin Aspart (Novolog) 6 unit SUBCUT NOW ONE Stop: 05/11/20 00:43 Last Admin: 05/11/20 00:46 Dose: 6 units Documented by: Iopamidol (Isovue-370 (76%)) 100 ml IVPUSH ONETIME STA Stop: 05/08/20 01:33 Last Admin: 05/08/20 01:35 Dose: 100 ml Documented by: Lorazepam (Ativan) 1 mg IVPUSH Q6H PRN PRN Reason: Anxiety Last Admin: 05/08/20 06:47 Dose: 1 mg Documented by: Lorazepam (Ativan) 2 mg IVPUSH ONETIME ONE Stop: 05/08/20 08:50 Last Admin: 05/08/20 09:06 Dose: 2 mg Documented by: Lorazepam (Ativan) 1 mg IVPUSH Q4H PRN PRN Reason: Anxiety Last Admin: 05/09/20 16:34 Dose: 1 mg Documented by: Metoclopramide HCl (Reglan) 5 mg PO TIDAC MICHAEL Metoclopramide HCl (Reglan) 5 mg IVPUSH Q4H PRN PRN Reason: Pain Last Admin: 05/10/20 01:25 Dose: 5 mg Documented by: Morphine Sulfate (Morphine) 2 mg IVPUSH ONETIME ONE Stop: 05/08/20 09:24 Last Admin: 05/08/20 09:32 Dose: 2 mg Documented by: Morphine Sulfate (Morphine) 1 mg IVPUSH ONETIME ONE Stop: 05/08/20 13:39 Last Admin: 05/08/20 13:52 Dose: 1 mg Documented by: Morphine Sulfate (Morphine) 2 mg IVPUSH Q4H PRN PRN Reason: Pain Last Admin: 05/10/20 05:35 Dose: 2 mg Documented by: Ondansetron HCl (Zofran Odt) 4 mg PO Q8H PRN PRN Reason: Abdominal Pain Last Admin: 05/09/20 16:34 Dose: 4 mg Documented by: Pantoprazole Sodium (Protonix) 40 mg PO ACBREAKFAST MICHAEL Last Admin: 05/08/20 13:37 Dose: Not Given Documented by: Promethazine HCl (Phenergan) 12.5 mg IM ONETIME ONE Stop: 05/10/20 09:59 Last Admin: 05/10/20 10:25 Dose: 12.5 mg Documented by: - Exam Quality Assessment: No: Supplemental Oxygen General: Alert, Oriented, Cooperative, No Acute Distress HEENT: Pupils Equal Neck: Supple Lungs: Clear to Auscultation, Normal Respiratory Effort Cardiovascular: Regular Rate, Regular Rhythm GI/Abdominal Exam: Soft, Non-Tender, Other (mild grimacing but tenderness at baseline from ysterday ) Back Exam: Normal Inspection, Full Range of Motion Skin: Warm, Dry Neurological: No New Focal Deficit Psy/Mental Status: Alert, Normal Affect Sepsis Event Note - Evaluation Sepsis Screening Result: No Definite Risk - Focused Exam Vital Signs: Vital Signs Temp Pulse Resp BP Pulse Ox 05/11/20 08:00 97.0 F 89 18 153/89 H 95 05/11/20 04:00 97.2 F 97 16 124/81 97 05/11/20 00:12 97.5 F 94 16 152/76 H 97 05/10/20 21:20 92 143/83 H - Problem List Review Problem List Initiated/Reviewed/Updated: Yes - My Orders Last 24 Hours: My Active Orders 05/10/20 09:00 Metoprolol Succinate [Toprol XL] 200 mg PO DAILY 05/11/20 05:46 KETONES,BLOOD [CHEM] Routine 05/11/20 07:30 Heparin Sodium 5,000 units SUBCUT Q12H 05/11/20 08:25 KETONES,URINE [URIN] Routine 05/11/20 08:31 Retroperitoneal Comp [US] Urgent 05/12/20 05:11 BMP [BASIC METABOLIC PANEL,BMP] [CHEM] AM CBC WITH AUTO DIFF [HEME] AM 05/13/20 05:11 BMP [BASIC METABOLIC PANEL,BMP] [CHEM] AM CBC WITH AUTO DIFF [HEME] AM - Plan Plan:: Assessment: 1. concerns for TIA/Stroke:negative MRI+CT scan 2. Type 1 DM: non-compliant with medications 3. elevated BP w. dx of HTN 4. acute on chronic CKD with elevated Cr 5. PMH: s/p BKA, prior stroke history. 6. Microcytic anemia Plan. Change status to Inpatient. Full code. I/o per routine. Vitals per routine Bed rest Diet :diabetic +low potassium N+V: reglan+pantoprazole+Phenergan Pain control:switch to Dilaudid 1. Neuro Deficits: at bedside, no signs of CN deficits; MRI brain w.o contrast suggests no acute signs of ischemia/mass effect HTN: BP elevated this AM; restarted Metoprolol+ spironolactone; continue Hydralazine on top of amlodipine; will reassess throughout day for further medication escalation e.g starting Cardura as well) +1 L bolus of NS given as well Overnight need for PRN Labetalol 10 dose Cr worsening : will be more aggressive with BP control since concerns for TIA/Stroke are lessened w. negative MRI brain and no acute CN deficits Mildly hyperkalemic: receiving SSI but will start on Low potassium diet; most likely secondary to worsening kidney function Spoke to Nephrology in [place]: believes contrast nephropathy to be etiology; mentioned this may take weeks for complete resolution; recommended maintain BP at 130s/80s; reduce Spironolactone and continue to monitor; watch for signs for uremia/acidosis; Co2 at 15 this AM; ordered serum/urine ketones ; IV fluid hydration : continue ; pt is tolerating PO intake but due to gastroparesis; PO intake is not optimal for hydration; continue to monitor. Provided Bicarbonate PO TID ; recheck BMP this afternoon Pain control: dc Morphine; starting Dilaudid+ Phenergan and scheduling Reglan. DM: continue SSI; a1c 8.0; improved from October; stricter glycemic control n ecessary however in light of worsening Kidney function; increased SSI to high dose protocol (pt. 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 Depression/anxiety: persistent tearfulness; when asked, suggests pain being cause for behavior; currently on Sertraline 50 mg daily (unknown medication compliance) Will need to medically stabilize pt. prior to psych consult being pursued <Beck Jeffery - Last Filed: 05/13/20 22:23> - Patient Data Vitals - Most Recent: Last Vital Signs Temp 36.4 C 05/12/20 07:30 Pulse 89 05/12/20 09:00 Resp 16 05/12/20 07:30 BP 157/89 H 05/12/20 09:00 Pulse Ox 98 05/12/20 07:30 Med Orders - Current: Current Medications Discontinued Medications Acetaminophen (Tylenol) 650 mg PO Q6H PRN PRN Reason: Pain Last Admin: 05/11/20 21:00 Dose: 650 mg Documented by: Amlodipine Besylate (Norvasc) 10 mg PO DAILY [facility] Last Admin: 05/11/20 09:30 Dose: 10 mg Documented by: Aspirin (Halfprin) 81 mg PO DAILY [facility] Last Admin: 05/12/20 08:56 Dose: 81 mg Documented by: Atorvastatin Calcium (Lipitor) 80 mg PO BEDTIME MICHAEL Last Admin: 05/11/20 20:30 Dose: 80 mg Documented by: Al Hydroxide/Mg Hydroxide 15 ml/ Metoclopramide HCl 5 mg/Lidocaine HCl 5 ml 0 ml PO ONETIME ONE Stop: 05/08/20 08:50 Last Admin: 05/08/20 09:36 Dose: Not Given Documented by: Diphenhydramine HCl (Benadryl) 25 mg IVPUSH NOW STA Stop: 05/12/20 06:39 Last Admin: 05/12/20 06:50 Dose: 25 mg Documented by: Enalapril Maleate (Vasotec) 20 mg PO DAILY [facility] Last Admin: 05/08/20 13:37 Dose: Not Given Documented by: Furosemide (Lasix) 20 mg IVPUSH ONETIME ONE Stop: 05/11/20 19:28 Last Admin: 05/11/20 20:25 Dose: 20 mg Documented by: Heparin Sodium (Porcine) (Heparin Sodium) 5,000 units SUBCUT Q12H [facility] Last Admin: 05/12/20 07:38 Dose: 5,000 units Documented by: Hydralazine HCl (Apresoline) 10 mg IVPUSH Q4H [facility] Last Admin: 05/12/20 08:57 Dose: 10 mg Documented by: Hydralazine HCl (Apresoline) 25 mg PO TID [facility] Hydrochlorothiazide (Hydrochlorothiazide) 25 mg PO DAILY [facility] Hydromorphone HCl (Dilaudid) 1 mg IVPUSH Q4H PRN PRN Reason: Pain Last Admin: 05/12/20 07:24 Dose: 1 mg Documented by: Sodium Chloride (Normal Saline) 1,000 mls @ 999 mls/hr IV ASDIRECTED [facility] Sodium Chloride (Normal Saline) 1,000 mls @ 999 mls/hr IV NOW STA Stop: 05/08/20 02:12 Last Admin: 05/08/20 01:16 Dose: 999 mls/hr Documented by: Sodium Chloride (Normal Saline) 1,000 mls @ 999 mls/hr IV ASDIRECTED MICHAEL Sodium Chloride (Normal Saline) 1,000 mls @ 999 mls/hr IV NOW STA Stop: 05/08/20 02:25 Last Admin: 05/08/20 03:26 Dose: 999 mls/hr Documented by: Pantoprazole Sodium 40 mg/ (Sodium Chloride) 10 mls @ 300 mls/hr IV Q24H MICHAEL Last Admin: 05/12/20 08:57 Dose: 300 mls/hr Documented by: Sodium Chloride (Normal Saline) 1,000 mls @ 125 mls/hr IV Q8H MICHAEL Last Admin: 05/11/20 21:16 Dose: Not Given Documented by: Lactated Ringer's (Ringers, Lactated) 1,000 mls @ 999 mls/hr IV .BOLUS ONE Stop: 05/10/20 10:50 Last Admin: 05/10/20 10:37 Dose: 999 mls/hr Documented by: [facility] Protocol Last Admin: 05/12/20 08:54 Dose: 3 units Documented by: Insulin Aspart (Novolog) 0 unit SUBCUT TIDAC [facility]; Protocol Last Admin: 05/08/20 13:36 Dose: Not Given Documented by: Insulin Aspart (Novolog) 6 unit SUBCUT NOW ONE Stop: 05/11/20 00:43 Last Admin: 05/11/20 00:46 Dose: 6 units Documented by: Insulin Aspart (Novolog) 4 unit SUBCUT NOW STA Stop: 05/12/20 04:07 Last Admin: 05/12/20 04:17 Dose: 4 units Documented by: Iopamidol (Isovue-370 (76%)) 100 ml IVPUSH ONETIME STA Stop: 05/08/20 01:33 Last Admin: 05/08/20 01:35 Dose: 100 ml Documented by: Labetalol HCl (Normodyne) 10 mg IVPUSH Q4H PRN; Protocol PRN Reason: Hypertension Last Admin: 05/10/20 03:21 Dose: 10 mg Documented by: Lorazepam (Ativan) 1 mg IVPUSH Q6H PRN PRN Reason: Anxiety Last Admin: 05/08/20 06:47 Dose: 1 mg Documented by: Lorazepam (Ativan) 2 mg IVPUSH ONETIME ONE Stop: 05/08/20 08:50 Last Admin: 05/08/20 09:06 Dose: 2 mg Documented by: Lorazepam (Ativan) 1 mg IVPUSH Q4H PRN PRN Reason: Anxiety Last Admin: 05/09/20 16:34 Dose: 1 mg Documented by: Lorazepam (Ativan) 2 mg IVPUSH Q4H PRN PRN Reason: Anxiety Last Admin: 05/12/20 01:06 Dose: 2 mg Documented by: Methylprednisolone Sodium Succinate (Solu-Medrol) 60 mg IVPUSH ONETIME ONE Stop: 05/12/20 06:40 Last Admin: 05/12/20 06:53 Dose: 60 mg Documented by: Metoclopramide HCl (Reglan) 5 mg PO TIDAC [facility] Metoclopramide HCl (Reglan) 5 mg IVPUSH Q4H PRN PRN Reason: Pain Last Admin: 05/10/20 01:25 Dose: 5 mg Documented by: Metoclopramide HCl (Reglan) 5 mg IVPUSH Q6H MICHAEL Last Admin: 05/12/20 03:13 Dose: 5 mg Documented by: Metoprolol Succinate (Toprol Xl) 200 mg PO DAILY [facility] Last Admin: 05/12/20 09:00 Dose: 200 mg Documented by: Morphine Sulfate (Morphine) 2 mg IVPUSH ONETIME ONE Stop: 05/08/20 09:24 Last Admin: 05/08/20 09:32 Dose: 2 mg Documented by: Morphine Sulfate (Morphine) 1 mg IVPUSH ONETIME ONE Stop: 05/08/20 13:39 Last Admin: 05/08/20 13:52 Dose: 1 mg Documented by: Morphine Sulfate (Morphine) 2 mg IVPUSH Q4H PRN PRN Reason: Pain Last Admin: 05/10/20 05:35 Dose: 2 mg Documented by: Ondansetron HCl (Zofran) 4 mg IVPUSH Q4H PRN PRN Reason: Nausea Last Admin: 05/11/20 20:51 Dose: 4 mg Documented by: Ondansetron HCl (Zofran Odt) 4 mg PO Q8H PRN PRN Reason: Abdominal Pain Last Admin: 05/09/20 16:34 Dose: 4 mg Documented by: Pantoprazole Sodium (Protonix) 40 mg PO ACBREAKFAST [facility] Last Admin: 05/08/20 13:37 Dose: Not Given Documented by: Promethazine HCl (Phenergan) 12.5 mg IM ONETIME ONE Stop: 05/10/20 09:59 Last Admin: 05/10/20 10:25 Dose: 12.5 mg Documented by: Sertraline HCl (Zoloft) 50 mg PO DAILY [facility] Last Admin: 05/12/20 08:56 Dose: 50 mg Documented by: Sodium Bicarbonate (Sodium Bicarbonate) 650 mg PO TID [facility] Last Admin: 05/12/20 07:35 Dose: 650 mg Documented by: Sodium Chloride (Saline Flush) 10 ml FLUSH ASDIRECTED PRN PRN Reason: Keep Vein Open Sodium Chloride (Saline Flush) 2.5 ml FLUSH ASDIRECTED PRN PRN Reason: Keep Vein Open Sodium Chloride (Normal Saline) 10 ml IV ASDIRECTED PRN PRN Reason: IV Use Spironolactone (Aldactone) 25 mg PO BID [facility] Last Admin: 05/12/20 08:56 Dose: 25 mg Documented by: Sucralfate (Carafate) 1 gm PO QIDACANDBED [facility] Last Admin: 05/12/20 07:35 Dose: 1 gm Documented by: - Free Text/Narrative Note: I have seen and evaluated the patient. I have discussed findings and treatment plan with resident. I agree with the assessment and plan as outlined in the following note.
[2020-05-11] MEDS: Spironolactone 25 MG Tab PO SCH ×2 (09:30→20:31)
[2020-05-11] MEDS: amLODIPine 5 MG Tab PO SCH (09:30)
[2020-05-11] MEDS: Aspirin 81 MG Tab.EC PO SCH (09:30)
[2020-05-11] MEDS: Metoprolol Succinate 100 MG Tab.ER PO SCH (09:32)
[2020-05-11] MEDS: Sertraline 50 MG Tab PO SCH (09:36)
[2020-05-11] MEDS: Pantoprazole 40 MG in Sodium Chloride 0.9% 10 ML IV SCH (09:39)
--- NOTE | 2020-05-11 09:58 | US ---
Renal ultrasound: Multiple real-time images of the kidneys were obtained. Comparison: Prior renal ultrasound study of 08/01/19. Kidneys show no hydronephrosis or discrete mass. Minimal fluid next to the liver is seen. Cortical thickness within both kidneys appears preserved. Measurements: Right kidney length: 12.0 cm Left kidney length: 11.8 cm Impression: 1. Minimal fluid next to the liver. 2. No abnormality is appreciated on renal ultrasound study. Diagnostic code #2 This report was dictated in MDT
[2020-05-11] MEDS: Sodium Bicarbonate 650 MG Tab PO SCH ×3 (10:52→21:57)
[2020-05-11 18:51] LABS: CARBON DIOXIDE,CO2 15.7 mmol/L (21.0-32.0); POTASSIUM,K 4.6 mmol/L (3.5-5.1)
[2020-05-11] MEDS ORDERED: Furosemide 20 MG/2 ML VIAL IVPUSH ONE (19:27)
[2020-05-11] MEDS: atorvaSTATin 40 MG Tab PO SCH (20:30)
[2020-05-11] MEDS: Ondansetron 4 MG/2 ML SDV IVPUSH PRN (20:51)
[2020-05-11] MEDS: LORazepam 2 MG/ML SDV IVPUSH PRN (20:57)
[2020-05-11] MEDS: Acetaminophen 325 MG Tab PO PRN (21:00)
[2020-05-12] MEDS: hydrALAZINE 20 MG/ML SDV IVPUSH SCH ×3 (01:06→08:57)
[2020-05-12] MEDS: LORazepam 2 MG/ML SDV IVPUSH PRN (01:06)
[2020-05-12] MEDS: Metoclopramide 10 MG/2 ML SDV IVPUSH SCH (03:13)
[2020-05-12] MEDS: HYDROmorphone 1 MG/ML Syringe IVPUSH PRN ×2 (03:15→07:24)
[2020-05-12] MEDS ORDERED: Insulin Aspart 100 Units/ML 3 ML Pen SUBCUT STA (04:06)
[2020-05-12] MEDS ORDERED: diphenhydrAMINE 50 MG/ML SDV IVPUSH STA (06:38)
[2020-05-12] MEDS ORDERED: methylPREDNISolone Sodium Succinate 40 MG/1 ML SDV IVPUSH ONE (06:39)
[2020-05-12 06:40] LABS: CARBON DIOXIDE,CO2 18.6 mmol/L (21.0-32.0); POTASSIUM,K 4.6 mmol/L (3.5-5.1)
[2020-05-12 07:31] VITALS: BP 157/89; PULSE 89
[2020-05-12] MEDS: Sucralfate 1 GM Tab PO SCH (07:35)
[2020-05-12] MEDS: Sodium Bicarbonate 650 MG Tab PO SCH (07:35)
[2020-05-12] MEDS: Heparin Sodium 5,000 Units/ML Vial SUBCUT SCH (07:38)
[2020-05-12] MEDS: Insulin Aspart 100 Units/ML 3 ML Pen SUBCUT SCH (08:54)
[2020-05-12] MEDS: Spironolactone 25 MG Tab PO SCH (08:56)
[2020-05-12] MEDS: Aspirin 81 MG Tab.EC PO SCH (08:56)
[2020-05-12] MEDS: Sertraline 50 MG Tab PO SCH (08:56)
[2020-05-12] MEDS: Pantoprazole 40 MG in Sodium Chloride 0.9% 10 ML IV SCH (08:57)
[2020-05-12] MEDS: Metoprolol Succinate 100 MG Tab.ER PO SCH (09:00)
--- NOTE | 2020-05-12 12:38 | PCM.DCSUM1 ---
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 ED course head CT negative with contrast. EKG normal sinus rhythm. Glucose 80. Head CT did incidentally did show a mass in the right eye however this was being followed by ophthalmology and patient endorsed this medical history. BP was elevated however permissive hypertension was monitored CTA neck was negative. MRI brain was negative; labs however showed elevated BUN/creatinine against baseline. And patient was complaining of increasing nausea and vomiting in light of his gastroparesis history. Throughout stay patient blood pressure was labile and mostly elevated in the 1 80s to 190s; once MRI of the brain was reported showing no signs of ischemic foci blood pressure medications were restarted except for spironolactone lisinopril with concerns about his elevated creatinine. Throughout his time however creatinine continued to increase with creatinine being 4.9 on day of transfer. Discussed case with nephrology in [place] initially prior to this and states that this is possibly secondary to contrast from the CT scan coupled with his hypertension and uncontrolled diabetes. Recommended control of blood pressure of 1 30-1 40s. Night prior to transfer patient however was complaining of increasing swelling of face and lower extremity; 1 dose of Lasix provided with minimal change in symptoms; patient mention feeling increasingly lethargic and felt swelling in posterior pharynx . Vitals were stable with oxygen saturations at 99-100%. Airway was open and patent and patient was talking in full sentences without respiratory distress. Concerns about worsening acidosis in light of his worsening creatinine and edema; discussed case with [facility] about possible nephrology consultation; Dr. Del Rosario accepted transfer; patient was sent via ground ambulance to [facility]. Of note, throughout stay patient was agitated with loss of his orthotic sleeve; could not find orthotic sleeve in room or in facility; attempted contacting numerous facilities for replacement of orthotic sleeve; however no facility was available in [place] and sleeve would have to be shipped to patient directly. Also of note throughout stay patient did attempt to take home dose of insulin on top of his sliding scale provided here in the hospital; BG was maintained but not optimized at times. discharge condition: Stable Disposition: Transfer to higher level of care - Discharge Data Discharge Date: 05/12/20 Discharge Disposition: DC/Tfer to Acute Hospital 02 Condition: Fair - Referral to Home Health Primary Care Physician: PCP None - Discharge Plan Home Medications: Home Meds Doxazosin [Cardura] 4 mg PO BEDTIME 09/29/19 [History] Metoprolol Succinate 200 mg PO DAILY 09/29/19 [History] Torsemide 20 mg PO BID 09/29/19 [History] atorvaSTATin [Lipitor] 80 mg PO BEDTIME 09/29/19 [History] Insulin Aspart [NovoLOG] 0 unit SUBCUT .UP TO 60 UN DAILY 09/30/19 [History] Metoclopramide [Reglan] 5 mg PO TIDAC #90 tablet 10/10/19 [Rx] Pantoprazole [ProTONIX] 40 mg PO DAILY #30 tab.cr 10/10/19 [Rx] Aspirin [Adult Low Dose Aspirin EC] 81 mg PO DAILY 12/07/19 [History] Enalapril Maleate 20 mg PO DAILY 12/07/19 [History] Insulin Glarg,Human.Rec.Analog [Lantus] 38 mg SUBCUT BEDTIME 12/07/19 [History] Iron Ag,Ps/C/Fa6/B12/Zn/SA/Sto [Niferex Tablet] 150 mg PO BID 12/07/19 [History] Sertraline [Zoloft] 50 mg PO DAILY 12/07/19 [History] Spironolactone [Aldactone] 25 mg PO BID 12/07/19 [History] Sucralfate 1 gm PO QIDACANDBED 12/07/19 [History] amLODIPine Besylate [Amlodipine Besylate] 10 mg PO DAILY 12/07/19 [History] hydrALAZINE [Apresoline] 25 mg PO TID 12/07/19 [History] hydroCHLOROthiazide [Hydrochlorothiazide] 25 mg PO DAILY 12/07/19 [History] Ondansetron [Zofran ODT] 4 mg PO Q8H PRN 04/12/20 [History] Patient Handouts: Transient Ischemic Attack, [id number] Referrals: Demian Medina MD [Physician] - 05/22/20 10:15 am (Please arrive 15 minutes early with your identification, insurance cards and your own facemask.) - Discharge Summary/Plan Comment DC Time >30 min.: No - Patient Data Vitals - Most Recent: Last Vital Signs Temp 97.5 F 05/12/20 07:30 Pulse 89 05/12/20 09:00 Resp 16 05/12/20 07:30 BP 157/89 H 05/12/20 09:00 Pulse Ox 98 05/12/20 07:30 Weight - Most Recent: 77.61 kg I&O - Last 24 hours: Intake & Output 05/11/20 05/12/20 05/12/20 22:59 06:59 14:59 Intake Total 540 500 Output Total 300 Balance 540 200 Lab Results - Last 24 hrs: Laboratory Results - last 24 hr 05/11/20 05/11/20 05/12/20 Range/Units 16:24 18:12 00:39 WBC (4.0-11.0) K/uL RBC (4.50-5.90) M/uL Hgb (13.0-17.0) g/dL Hct (38.0-50.0) % MCV (80.0-98.0) fL MCH (27.0-32.0) pg MCHC (31.0-37.0) g/dL RDW Std Deviation (28.0-62.0) fl RDW Coeff of Dania (11.0-15.0) % Plt Count (150-400) K/uL MPV (7.40-12.00) fL Neut % (Auto) (48.0-80.0) % Lymph % (Auto) (16.0-40.0) % [place] % (Auto) (0.0-15.0) % Eos % (Auto) (0.0-7.0) % Baso % (Auto) (0.0-1.5) % Neut # (Auto) (1.4-5.7) K/uL Lymph # (Auto) (0.6-2.4) K/uL [place] # (Auto) (0.0-0.8) K/uL Eos # (Auto) (0.0-0.7) K/uL Baso # (Auto) (0.0-0.1) K/uL Nucleated RBC % /100WBC Nucleated RBCs # K/uL Sodium 134 L (136-148) mmol/L Potassium 4.6 (3.5-5.1) mmol/L Chloride 104 (98-107) mmol/L Carbon Dioxide 15.7 L (21.0-32.0) mmol/L BUN 31 H (7.0-18.0) mg/dL Creatinine 4.6 H (0.8-1.3) mg/dL Est Cr Clr Drug Dosing 21.89 mL/min Estimated GFR (MDRD) 17.8 ml/min Glucose 195 H (74-106) mg/dL POC Glucose 164 H 176 H (60-110) mg/dL Calcium 7.6 L (8.5-10.1) mg/dL Urine Ketones 05/12/20 05/12/20 05/12/20 Range/Units 03:10 06:15 06:15 WBC 6.04 (4.0-11.0) K/uL RBC 4.59 (4.50-5.90) M/uL Hgb 9.7 L (13.0-17.0) g/dL Hct 30.8 L (38.0-50.0) % MCV 67.1 L (80.0-98.0) fL MCH 21.1 L (27.0-32.0) pg MCHC 31.5 (31.0-37.0) g/dL RDW Std Deviation 40.1 (28.0-62.0) fl RDW Coeff of Dania 16 H (11.0-15.0) % Plt Count 444 H (150-400) K/uL MPV 10.20 (7.40-12.00) fL Neut % (Auto) 62.7 (48.0-80.0) % Lymph % (Auto) 30.0 (16.0-40.0) % [place] % (Auto) 5.3 (0.0-15.0) % Eos % (Auto) 1.7 (0.0-7.0) % Baso % (Auto) 0.3 (0.0-1.5) % Neut # (Auto) 3.8 (1.4-5.7) K/uL Lymph # (Auto) 1.8 (0.6-2.4) K/uL [place] # (Auto) 0.3 (0.0-0.8) K/uL Eos # (Auto) 0.1 (0.0-0.7) K/uL Baso # (Auto) 0.0 (0.0-0.1) K/uL Nucleated RBC % 0.0 /100WBC Nucleated RBCs # 0 K/uL Sodium 135 L (136-148) mmol/L Potassium 4.6 (3.5-5.1) mmol/L Chloride 105 (98-107) mmol/L Carbon Dioxide 18.6 L (21.0-32.0) mmol/L BUN 32 H (7.0-18.0) mg/dL Creatinine 4.9 H (0.8-1.3) mg/dL Est Cr Clr Drug Dosing 20.55 mL/min Estimated GFR (MDRD) 16.6 ml/min Glucose 229 H (74-106) mg/dL POC Glucose 256 H (60-110) mg/dL Calcium 8.0 L (8.5-10.1) mg/dL Urine Ketones 05/12/20 05/12/20 Range/Units 06:40 07:28 WBC (4.0-11.0) K/uL RBC (4.50-5.90) M/uL Hgb (13.0-17.0) g/dL Hct (38.0-50.0) % MCV (80.0-98.0) fL MCH (27.0-32.0) pg MCHC (31.0-37.0) g/dL RDW Std Deviation (28.0-62.0) fl RDW Coeff of Dania (11.0-15.0) % Plt Count (150-400) K/uL MPV (7.40-12.00) fL Neut % (Auto) (48.0-80.0) % Lymph % (Auto) (16.0-40.0) % [place] % (Auto) (0.0-15.0) % Eos % (Auto) (0.0-7.0) % Baso % (Auto) (0.0-1.5) % Neut # (Auto) (1.4-5.7) K/uL Lymph # (Auto) (0.6-2.4) K/uL [place] # (Auto) (0.0-0.8) K/uL Eos # (Auto) (0.0-0.7) K/uL Baso # (Auto) (0.0-0.1) K/uL Nucleated RBC % /100WBC Nucleated RBCs # K/uL Sodium (136-148) mmol/L Potassium (3.5-5.1) mmol/L Chloride (98-107) mmol/L Carbon Dioxide (21.0-32.0) mmol/L BUN (7.0-18.0) mg/dL Creatinine (0.8-1.3) mg/dL Est Cr Clr Drug Dosing mL/min Estimated GFR (MDRD) ml/min Glucose (74-106) mg/dL POC Glucose 167 H (60-110) mg/dL Calcium (8.5-10.1) mg/dL Urine Ketones NEGATIVE Med Orders - Current: Current Medications Acetaminophen (Tylenol) 650 mg PO Q6H PRN PRN Reason: Pain Last Admin: 05/11/20 21:00 Dose: 650 mg Documented by: Aspirin (Halfprin) 81 mg PO DAILY [facility] Last Admin: 05/12/20 08:56 Dose: 81 mg Documented by: Atorvastatin Calcium (Lipitor) 80 mg PO BEDTIME [facility] Last Admin: 05/11/20 20:30 Dose: 80 mg Documented by: Heparin Sodium (Porcine) (Heparin Sodium) 5,000 units SUBCUT Q12H [facility] Last Admin: 05/12/20 07:38 Dose: 5,000 units Documented by: Hydralazine HCl (Apresoline) 10 mg IVPUSH Q4H [facility] Last Admin: 05/12/20 08:57 Dose: 10 mg Documented by: Hydromorphone HCl (Dilaudid) 1 mg IVPUSH Q4H PRN PRN Reason: Pain Last Admin: 05/12/20 07:24 Dose: 1 mg Documented by: Pantoprazole Sodium 40 mg/ (Sodium Chloride) 10 mls @ 300 mls/hr IV Q24H [facility] Last Admin: 05/12/20 08:57 Dose: 300 mls/hr Documented by: Insulin Aspart (Novolog) 0 unit SUBCUT TIDAC [facility]; Protocol Last Admin: 05/12/20 08:54 Dose: 3 units Documented by: Labetalol HCl (Normodyne) 10 mg IVPUSH Q4H PRN; Protocol PRN Reason: Hypertension Last Admin: 05/10/20 03:21 Dose: 10 mg Documented by: Lorazepam (Ativan) 2 mg IVPUSH Q4H PRN PRN Reason: Anxiety Last Admin: 05/12/20 01:06 Dose: 2 mg Documented by: Metoclopramide HCl (Reglan) 5 mg IVPUSH Q6H [facility] Last Admin: 05/12/20 03:13 Dose: 5 mg Documented by: Metoprolol Succinate (Toprol Xl) 200 mg PO DAILY [facility] Last Admin: 05/12/20 09:00 Dose: 200 mg Documented by: Ondansetron HCl (Zofran) 4 mg IVPUSH Q4H PRN PRN Reason: Nausea Last Admin: 05/11/20 20:51 Dose: 4 mg Documented by: Sertraline HCl (Zoloft) 50 mg PO DAILY [facility] Last Admin: 05/12/20 08:56 Dose: 50 mg Documented by: Sodium Bicarbonate (Sodium Bicarbonate) 650 mg PO TID [facility] Last Admin: 05/12/20 07:35 Dose: 650 mg Documented by: Sodium Chloride (Saline Flush) 10 ml FLUSH ASDIRECTED PRN PRN Reason: Keep Vein Open Sodium Chloride (Saline Flush) 2.5 ml FLUSH ASDIRECTED PRN PRN Reason: Keep Vein Open Sodium Chloride (Normal Saline) 10 ml IV ASDIRECTED PRN PRN Reason: IV Use Spironolactone (Aldactone) 25 mg PO BID [facility] Last Admin: 05/12/20 08:56 Dose: 25 mg Documented by: Sucralfate (Carafate) 1 gm PO QIDACANDBED [facility] Last Admin: 05/12/20 07:35 Dose: 1 gm Documented by: Discontinued Medications Amlodipine Besylate (Norvasc) 10 mg PO DAILY [facility] Last Admin: 05/11/20 09:30 Dose: 10 mg Documented by: Al Hydroxide/Mg Hydroxide 15 ml/ Metoclopramide HCl 5 mg/Lidocaine HCl 5 ml 0 ml PO ONETIME ONE Stop: 05/08/20 08:50 Last Admin: 05/08/20 09:36 Dose: Not Given Documented by: Diphenhydramine HCl (Benadryl) 25 mg IVPUSH NOW STA Stop: 05/12/20 06:39 Last Admin: 05/12/20 06:50 Dose: 25 mg Documented by: Enalapril Maleate (Vasotec) 20 mg PO DAILY [facility] Last Admin: 05/08/20 13:37 Dose: Not Given Documented by: Furosemide (Lasix) 20 mg IVPUSH ONETIME ONE Stop: 05/11/20 19:28 Last Admin: 05/11/20 20:25 Dose: 20 mg Documented by: Hydralazine HCl (Apresoline) 25 mg PO TID [facility] Hydrochlorothiazide (Hydrochlorothiazide) 25 mg PO DAILY [facility] Sodium Chloride (Normal Saline) 1,000 mls @ 999 mls/hr IV ASDIRECTED MICHAEL Sodium Chloride (Normal Saline) 1,000 mls @ 999 mls/hr IV NOW STA Stop: 05/08/20 02:12 Last Admin: 05/08/20 01:16 Dose: 999 mls/hr Documented by: Sodium Chloride (Normal Saline) 1,000 mls @ 999 mls/hr IV ASDIRECTED [facility]HAEL Sodium Chloride (Normal Saline) 1,000 mls @ 999 mls/hr IV NOW STA Stop: 05/08/20 02:25 Last Admin: 05/08/20 03:26 Dose: 999 mls/hr Documented by: Sodium Chloride (Normal Saline) 1,000 mls @ 125 mls/hr IV Q8H [facility] Last Admin: 05/11/20 21:16 Dose: Not Given Documented by: Lactated Ringer's (Ringers, Lactated) 1,000 mls @ 999 mls/hr IV .BOLUS ONE Stop: 05/10/20 10:50 Last Admin: 05/10/20 10:37 Dose: 999 mls/hr Documented by: Insulin Aspart (Novolog) 0 unit SUBCUT TIDAC [facility]; Protocol Last Admin: 05/08/20 13:36 Dose: Not Given Documented by: Insulin Aspart (Novolog) 6 unit SUBCUT NOW ONE Stop: 05/11/20 00:43 Last Admin: 05/11/20 00:46 Dose: 6 units Documented by: Insulin Aspart (Novolog) 4 unit SUBCUT NOW STA Stop: 05/12/20 04:07 Last Admin: 05/12/20 04:17 Dose: 4 units Documented by: Iopamidol (Isovue-370 (76%)) 100 ml IVPUSH ONETIME STA Stop: 05/08/20 01:33 Last Admin: 05/08/20 01:35 Dose: 100 ml Documented by: Lorazepam (Ativan) 1 mg IVPUSH Q6H PRN PRN Reason: Anxiety Last Admin: 05/08/20 06:47 Dose: 1 mg Documented by: Lorazepam (Ativan) 2 mg IVPUSH ONETIME ONE Stop: 05/08/20 08:50 Last Admin: 05/08/20 09:06 Dose: 2 mg Documented by: Lorazepam (Ativan) 1 mg IVPUSH Q4H PRN PRN Reason: Anxiety Last Admin: 05/09/20 16:34 Dose: 1 mg Documented by: Methylprednisolone Sodium Succinate (Solu-Medrol) 60 mg IVPUSH ONETIME ONE Stop: 05/12/20 06:40 Last Admin: 05/12/20 06:53 Dose: 60 mg Documented by: Metoclopramide HCl (Reglan) 5 mg PO TIDAC [facility] Metoclopramide HCl (Reglan) 5 mg IVPUSH Q4H PRN PRN Reason: Pain Last Admin: 05/10/20 01:25 Dose: 5 mg Documented by: Morphine Sulfate (Morphine) 2 mg IVPUSH ONETIME ONE Stop: 05/08/20 09:24 Last Admin: 05/08/20 09:32 Dose: 2 mg Documented by: Morphine Sulfate (Morphine) 1 mg IVPUSH ONETIME ONE Stop: 05/08/20 13:39 Last Admin: 05/08/20 13:52 Dose: 1 mg Documented by: Morphine Sulfate (Morphine) 2 mg IVPUSH Q4H PRN PRN Reason: Pain Last Admin: 05/10/20 05:35 Dose: 2 mg Documented by: Ondansetron HCl (Zofran Odt) 4 mg PO Q8H PRN PRN Reason: Abdominal Pain Last Admin: 05/09/20 16:34 Dose: 4 mg Documented by: Pantoprazole Sodium (Protonix) 40 mg PO ACBREAKFAST [facility] Last Admin: 05/08/20 13:37 Dose: Not Given Documented by: Promethazine HCl (Phenergan) 12.5 mg IM ONETIME ONE Stop: 05/10/20 09:59 Last Admin: 05/10/20 10:25 Dose: 12.5 mg Documented by: <Beck Jeffery - Last Filed: 05/13/20 22:22> Discharge Summary - Referral to Home Health Primary Care Physician: PCP None - Patient Data Vitals - Most Recent: Last Vital Signs Temp 36.4 C 05/12/20 07:30 Pulse 89 05/12/20 09:00 Resp 16 05/12/20 07:30 BP 157/89 H 05/12/20 09:00 Pulse Ox 98 05/12/20 07:30 Med Orders - Current: Current Medications Discontinued Medications Acetaminophen (Tylenol) 650 mg PO Q6H PRN PRN Reason: Pain Last Admin: 05/11/20 21:00 Dose: 650 mg Documented by: Amlodipine Besylate (Norvasc) 10 mg PO DAILY [facility] Last Admin: 05/11/20 09:30 Dose: 10 mg Documented by: Aspirin (Halfprin) 81 mg PO DAILY [facility] Last Admin: 05/12/20 08:56 Dose: 81 mg Documented by: Atorvastatin Calcium (Lipitor) 80 mg PO BEDTIME [facility] Last Admin: 05/11/20 20:30 Dose: 80 mg Documented by: Al Hydroxide/Mg Hydroxide 15 ml/ Metoclopramide HCl 5 mg/Lidocaine HCl 5 ml 0 ml PO ONETIME ONE Stop: 05/08/20 08:50 Last Admin: 05/08/20 09:36 Dose: Not Given Documented by: Diphenhydramine HCl (Benadryl) 25 mg IVPUSH NOW STA Stop: 05/12/20 06:39 Last Admin: 05/12/20 06:50 Dose: 25 mg Documented by: Enalapril Maleate (Vasotec) 20 mg PO DAILY [facility] Last Admin: 05/08/20 13:37 Dose: Not Given Documented by: Furosemide (Lasix) 20 mg IVPUSH ONETIME ONE Stop: 05/11/20 19:28 Last Admin: 05/11/20 20:25 Dose: 20 mg Documented by: Heparin Sodium (Porcine) (Heparin Sodium) 5,000 units SUBCUT Q12H [facility] Last Admin: 05/12/20 07:38 Dose: 5,000 units Documented by: Hydralazine HCl (Apresoline) 10 mg IVPUSH Q4H [facility] Last Admin: 05/12/20 08:57 Dose: 10 mg Documented by: Hydralazine HCl (Apresoline) 25 mg PO TID [facility] Hydrochlorothiazide (Hydrochlorothiazide) 25 mg PO DAILY [facility] Hydromorphone HCl (Dilaudid) 1 mg IVPUSH Q4H PRN PRN Reason: Pain Last Admin: 05/12/20 07:24 Dose: 1 mg Documented by: Sodium Chloride (Normal Saline) 1,000 mls @ 999 mls/hr IV ASDIRECTED [facility] Sodium Chloride (Normal Saline) 1,000 mls @ 999 mls/hr IV NOW STA Stop: 05/08/20 02:12 Last Admin: 05/08/20 01:16 Dose: 999 mls/hr Documented by: Sodium Chloride (Normal Saline) 1,000 mls @ 999 mls/hr IV ASDIRECTED [facility] Sodium Chloride (Normal Saline) 1,000 mls @ 999 mls/hr IV NOW STA Stop: 05/08/20 02:25 Last Admin: 05/08/20 03:26 Dose: 999 mls/hr Documented by: Pantoprazole Sodium 40 mg/ (Sodium Chloride) 10 mls @ 300 mls/hr IV Q24H [facility] Last Admin: 05/12/20 08:57 Dose: 300 mls/hr Documented by: Sodium Chloride (Normal Saline) 1,000 mls @ 125 mls/hr IV Q8H [facility] Last Admin: 05/11/20 21:16 Dose: Not Given Documented by: Lactated Ringer's (Ringers, Lactated) 1,000 mls @ 999 mls/hr IV .BOLUS ONE Stop: 05/10/20 10:50 Last Admin: 05/10/20 10:37 Dose: 999 mls/hr Documented by: [facility] Protocol Last Admin: 05/12/20 08:54 Dose: 3 units Documented by: Insulin Aspart (Novolog) 0 unit SUBCUT TIDAC [facility]; Protocol Last Admin: 05/08/20 13:36 Dose: Not Given Documented by: Insulin Aspart (Novolog) 6 unit SUBCUT NOW ONE Stop: 05/11/20 00:43 Last Admin: 05/11/20 00:46 Dose: 6 units Documented by: Insulin Aspart (Novolog) 4 unit SUBCUT NOW STA Stop: 05/12/20 04:07 Last Admin: 05/12/20 04:17 Dose: 4 units Documented by: Iopamidol (Isovue-370 (76%)) 100 ml IVPUSH ONETIME STA Stop: 05/08/20 01:33 Last Admin: 05/08/20 01:35 Dose: 100 ml Documented by: Labetalol HCl (Normodyne) 10 mg IVPUSH Q4H PRN; Protocol PRN Reason: Hypertension Last Admin: 05/10/20 03:21 Dose: 10 mg Documented by: Lorazepam (Ativan) 1 mg IVPUSH Q6H PRN PRN Reason: Anxiety Last Admin: 05/08/20 06:47 Dose: 1 mg Documented by: Lorazepam (Ativan) 2 mg IVPUSH ONETIME ONE Stop: 05/08/20 08:50 Last Admin: 05/08/20 09:06 Dose: 2 mg Documented by: Lorazepam (Ativan) 1 mg IVPUSH Q4H PRN PRN Reason: Anxiety Last Admin: 05/09/20 16:34 Dose: 1 mg Documented by: Lorazepam (Ativan) 2 mg IVPUSH Q4H PRN PRN Reason: Anxiety Last Admin: 05/12/20 01:06 Dose: 2 mg Documented by: Methylprednisolone Sodium Succinate (Solu-Medrol) 60 mg IVPUSH ONETIME ONE Stop: 05/12/20 06:40 Last Admin: 05/12/20 06:53 Dose: 60 mg Documented by: Metoclopramide HCl (Reglan) 5 mg PO TIDAC [facility] Metoclopramide HCl (Reglan) 5 mg IVPUSH Q4H PRN PRN Reason: Pain Last Admin: 05/10/20 01:25 Dose: 5 mg Documented by: Metoclopramide HCl (Reglan) 5 mg IVPUSH Q6H [facility] Last Admin: 05/12/20 03:13 Dose: 5 mg Documented by: Metoprolol Succinate (Toprol Xl) 200 mg PO DAILY [facility] Last Admin: 05/12/20 09:00 Dose: 200 mg Documented by: Morphine Sulfate (Morphine) 2 mg IVPUSH ONETIME ONE Stop: 05/08/20 09:24 Last Admin: 05/08/20 09:32 Dose: 2 mg Documented by: Morphine Sulfate (Morphine) 1 mg IVPUSH ONETIME ONE Stop: 05/08/20 13:39 Last Admin: 05/08/20 13:52 Dose: 1 mg Documented by: Morphine Sulfate (Morphine) 2 mg IVPUSH Q4H PRN PRN Reason: Pain Last Admin: 05/10/20 05:35 Dose: 2 mg Documented by: Ondansetron HCl (Zofran) 4 mg IVPUSH Q4H PRN PRN Reason: Nausea Last Admin: 05/11/20 20:51 Dose: 4 mg Documented by: Ondansetron HCl (Zofran Odt) 4 mg PO Q8H PRN PRN Reason: Abdominal Pain Last Admin: 05/09/20 16:34 Dose: 4 mg Documented by: Pantoprazole Sodium (Protonix) 40 mg PO ACBREAKFAST [facility] Last Admin: 05/08/20 13:37 Dose: Not Given Documented by: Promethazine HCl (Phenergan) 12.5 mg IM ONETIME ONE Stop: 05/10/20 09:59 Last Admin: 05/10/20 10:25 Dose: 12.5 mg Documented by: Sertraline HCl (Zoloft) 50 mg PO DAILY [facility] Last Admin: 05/12/20 08:56 Dose: 50 mg Documented by: Sodium Bicarbonate (Sodium Bicarbonate) 650 mg PO TID [facility] Last Admin: 05/12/20 07:35 Dose: 650 mg Documented by: Sodium Chloride (Saline Flush) 10 ml FLUSH ASDIRECTED PRN PRN Reason: Keep Vein Open Sodium Chloride (Saline Flush) 2.5 ml FLUSH ASDIRECTED PRN PRN Reason: Keep Vein Open Sodium Chloride (Normal Saline) 10 ml IV ASDIRECTED PRN PRN Reason: IV Use Spironolactone (Aldactone) 25 mg PO BID [facility] Last Admin: 05/12/20 08:56 Dose: 25 mg Documented by: Sucralfate (Carafate) 1 gm PO QIDACANDBED [facility] Last Admin: 05/12/20 07:35 Dose: 1 gm Documented by: - Free Text/Narrative Note: I have seen and evaluated the patient. I have discussed findings and treatment plan with resident. I agree with the assessment and plan as outlined in the following note.
== END 2020-05-12 10:00 | DRG 684 ==
LOC: MW.ED 23:51 → MW.MS 05-08 02:17 → OBSVTOIN 05-10 09:50 → MW.MS 05-10 11:23
PROVIDERS: ADMIT Internal Medicine; ATTEND Internal Medicine
DX: N17.9 Acute kidney failure, unspecified (principal); N14.1 Nephropathy induced by other drugs, medicaments and biological substances; I12.9 Hypertensive chronic kidney disease with stage 1 through stage 4 chronic kidney disease, or unspecified chronic kidney disease; E10.22 Type 1 diabetes mellitus with diabetic chronic kidney disease; N18.9 Chronic kidney disease, unspecified; F41.9 Anxiety disorder, unspecified; E10.43 Type 1 diabetes mellitus with diabetic autonomic (poly)neuropathy; F32.9 Major depressive disorder, single episode, unspecified; H54.7 Unspecified visual loss; K31.84 Gastroparesis; K21.9 Gastro-esophageal reflux disease without esophagitis; K44.9 Diaphragmatic hernia without obstruction or gangrene; E87.5 Hyperkalemia; D63.1 Anemia in chronic kidney disease; T50.8X5A Adverse effect of diagnostic agents, initial encounter; E10.42 Type 1 diabetes mellitus with diabetic polyneuropathy; Z79.82 Long term (current) use of aspirin; Z79.899 Other long term (current) drug therapy; Z79.4 Long term (current) use of insulin; Z88.0 Allergy status to penicillin; Z89.511 Acquired absence of right leg below knee; Z91.14 Patient's other noncompliance with medication regimen; Z91.013 Allergy to seafood; Z91.09 Other allergy status, other than to drugs and biological substances; Z86.73 Personal history of transient ischemic attack (TIA), and cerebral infarction without residual deficits; Z20.828 Contact with and (suspected) exposure to other viral communicable diseases
CPT/HCPCS: 36415; 70450; 70450-26; 70496; 70496-26; 70498; 70498-26; 70551; 70551-26; 76770; 76770-26; 80048; 80053; 80305-QW; 81003; 82009; 82570; 82962; 83036; 83540; 84300; 84443; 84484; 85025; 85610; 85730; 93005; 96360; 96361; 96372; 96374; 96375; 96376; 99219; 99225; 99232; 99238; 99283; 99285-25; A9270-GY; C9113; G0378; J0360; J1170; J1200; J1644; J1815-GY; J2060; J2270; J2405; J2550; J2765; J2920; J3490; J7030; J7050; J7120; Q9967; U0002

== ENCOUNTER 2020-05-31 20:42 | Emergency (ER) | payer MEDICARE, MEDICAID ==
[2020-05-31] MEDS ORDERED: Pantoprazole 40 MG in Sodium Chloride 0.9% 10 ML IV ONE (20:53)
[2020-05-31] MEDS ORDERED: Sodium Chloride 0.9% 1,000 ML IV ONE (20:53)
[2020-05-31] MEDS ORDERED: Sodium Chloride 0.9% 2.5 ML Syringe FLUSH PRN (20:53)
[2020-05-31] MEDS ORDERED: Sodium Chloride 0.9% 10 ML Syringe FLUSH PRN (20:53)
[2020-05-31] MEDS ORDERED: Haloperidol Lactate 5 MG/ML SDV IM ONE (20:56)
--- NOTE | 2020-05-31 21:01 | EDM.PDOC ---
ED HPI GENERAL MEDICAL PROBLEM - General Chief Complaint: Abdominal Pain Stated Complaint: ABDOMINAL PAIN Time Seen by Provider: 05/31/20 20:44 Source of Information: Reports: Patient History Limitations: Reports: Other (clinical condition) - History of Present Illness INITIAL COMMENTS - FREE TEXT/NARRATIVE: 35M PMHx HTN, CKD, IDDM1, gastroparesis, h/o upper GIB, medication non- compliance, R BKA presents for abdominal pain associated with N/V. Patient is limited historian 2/2 clinical condition. Several visits for similar and well known to ED. Patient states symptoms started this morning and have worsened. He does note blood in his vomitus. Emesis TNTC. Patient was last admitted on 05/08/2020. abdominal Pain Score (Numeric/FACES): 10 - Related Data Allergies Allergy/AdvReac Type Severity Reaction Status Date / Time shrimp Allergy Severe Swelling Verified 05/31/20 21:16 iodine Allergy Unknown Anaphylactic Verified 05/31/20 21:16 Shock Penicillins Allergy Unknown Anaphylactic Verified 05/31/20 21:16 Shock shellfish derived Allergy Anaphylactic Verified 05/31/20 21:16 Shock gluten Allergy Severe Muscle Uncoded 05/31/20 21:16 Aches Home Meds: Home Meds Doxazosin [Cardura] 4 mg PO BEDTIME 09/29/19 [History] Metoprolol Succinate 200 mg PO DAILY 09/29/19 [History] Torsemide 20 mg PO BID 09/29/19 [History] atorvaSTATin [Lipitor] 80 mg PO BEDTIME 09/29/19 [History] Insulin Aspart [NovoLOG] 0 unit SUBCUT .UP TO 60 UN DAILY 09/30/19 [History] Metoclopramide [Reglan] 5 mg PO TIDAC #90 tablet 10/10/19 [Rx] Pantoprazole [ProTONIX] 40 mg PO DAILY #30 tab.cr 10/10/19 [Rx] Aspirin [Adult Low Dose Aspirin EC] 81 mg PO DAILY 12/07/19 [History] Enalapril Maleate 20 mg PO DAILY 12/07/19 [History] Insulin Glarg,Human.Rec.Analog [Lantus] 38 mg SUBCUT BEDTIME 12/07/19 [History] Iron Ag,Ps/C/Fa6/B12/Zn/SA/Sto [Niferex Tablet] 150 mg PO BID 12/07/19 [History] Sertraline [Zoloft] 50 mg PO DAILY 12/07/19 [History] Spironolactone [Aldactone] 25 mg PO BID 12/07/19 [History] Sucralfate 1 gm PO QIDACANDBED 12/07/19 [History] amLODIPine Besylate [Amlodipine Besylate] 10 mg PO DAILY 12/07/19 [History] hydrALAZINE [Apresoline] 25 mg PO TID 12/07/19 [History] hydroCHLOROthiazide [Hydrochlorothiazide] 25 mg PO DAILY 12/07/19 [History] Ondansetron [Zofran ODT] 4 mg PO Q8H PRN 04/12/20 [History] Pantoprazole Sodium [Protonix] 40 mg PO DAILY 30 Days #30 suspdr.pkt 05/31/20 [Rx] Past Medical History - Past Health History Medical/Surgical History: Denies Medical/Surgical History HEENT History: Reports: Impaired Vision Other HEENT History: blind right eye Cardiovascular History: Reports: Hypertension Respiratory History: Reports: None Gastrointestinal History: Reports: Gastritis, GERD, Hiatal Hernia, Other (See Below) Other Gastrointestinal History: h/o gastric ulcers, h/o hiatal hernia; gastroparesis Genitourinary History: Reports: Chronic Renal Insuffiency, Diabetic Nephropathy Musculoskeletal History: Reports: Amputation Other Musculoskeletal History: RLE Neurological History: Reports: Neuropathy, Peripheral Other Neuro History: stroke Psychiatric History: Reports: Anxiety Endocrine/Metabolic History: Reports: Diabetes, Type I Other Endocrine/Metabolic History: brittle diabetic. 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 - Past Surgical History Head Surgeries/Procedures: Reports: None HEENT Surgical History: Reports: None Respiratory Surgical History: Reports: None GI Surgical History: Reports: None Male Surgical History: Reports: None Endocrine Surgical History: Reports: None Oncologic Surgical History: Reports: None Dermatological Surgical History: Reports: None Social & Family History - Family History Family Medical History: Noncontributory Cardiac: Reports: High Cholesterol, Hypertension OBGYN: Reports: Neurological: Reports: None Psychiatric: Reports: Anxiety - Caffeine Use Caffeine Use: Reports: None Other Caffeine Use: daily Caffeine Use Comment: patient is uncooperated - Living Situation & Occupation Living situation: Reports: Single Occupation: Employed (Currently unemployed.) ED ROS GENERAL - Review of Systems Review Of Systems: Comprehensive ROS is negative, except as noted in HPI. ED EXAM, GI/ABD - Physical Exam Exam: See Below Exam Limited By: Other (condition) General Appearance: Alert, Other (moaning, appears to be in pain) Throat/Mouth: Normal Voice, No Airway Compromise, Other (vomitus around mouth, protecting airway) Head: Atraumatic, Normocephalic Neck: Normal Inspection Respiratory/Chest: No Respiratory Distress, Lungs Clear, Normal Breath Sounds, No Accessory Muscle Use Cardiovascular: Normal Peripheral Pulses, Tachycardia GI/Abdominal Exam: Soft, Non-Tender, No Distention Extremities: Normal Inspection, Other (R BKA) Neurological: Alert Psychiatric: Anxious Skin Exam: Warm, Dry, Intact, Normal Color Course - Vital Signs Last Recorded V/S: Last Vital Signs Temp 97.0 F 05/31/20 20:47 Pulse 111 H 05/31/20 22:24 Resp 16 05/31/20 22:24 BP 225/150 H 05/31/20 22:24 Pulse Ox 98 05/31/20 22:24 - Orders/Labs/Meds Orders: Active Orders 24 hr Category Date Time Status Blood Glucose Check, Bedside [RC] ONETIME Care 05/31/20 20:53 Active Cardiac Monitoring [RC] . DIRECTED Care 05/31/20 20:53 Active EKG Documentation Completion [RC] STAT Care 05/31/20 20:53 Active Pulse Oximetry [RC] ASDIRECTED Care 05/31/20 20:53 Active Sodium Chloride 0.9% [Saline Flush] Med 05/31/20 20:53 Active 10 ml FLUSH ASDIRECTED PRN Sodium Chloride 0.9% [Saline Flush] Med 05/31/20 20:53 Active 2.5 ml FLUSH ASDIRECTED PRN Saline Lock Insert [OM.PC] Stat Oth 05/31/20 20:53 Ordered Medication Orders Sodium Chloride (Saline Flush) 10 ml FLUSH ASDIRECTED PRN PRN Reason: Keep Vein Open Sodium Chloride (Saline Flush) 2.5 ml FLUSH ASDIRECTED PRN PRN Reason: Keep Vein Open Labs: Laboratory Tests 05/31/20 05/31/20 05/31/20 Range/Units 21:25 21:25 21:25 WBC 14.97 H (4.0-11.0) K/uL RBC 4.19 L (4.50-5.90) M/uL Hgb 9.1 L (13.0-17.0) g/dL Hct 29.2 L (38.0-50.0) % MCV 69.7 L (80.0-98.0) fL MCH 21.7 L (27.0-32.0) pg MCHC 31.2 (31.0-37.0) g/dL RDW Std Deviation 43.9 (28.0-62.0) fl RDW Coeff of Dania 17 H (11.0-15.0) % Plt Count 395 (150-400) K/uL MPV 10.00 (7.40-12.00) fL Neut % (Auto) 86.4 H (48.0-80.0) % Lymph % (Auto) 7.9 L (16.0-40.0) % [place] % (Auto) 4.3 (0.0-15.0) % Eos % (Auto) 1.1 (0.0-7.0) % Baso % (Auto) 0.3 (0.0-1.5) % Neut # (Auto) 12.9 H (1.4-5.7) K/uL Lymph # (Auto) 1.2 (0.6-2.4) K/uL [place] # (Auto) 0.6 (0.0-0.8) K/uL Eos # (Auto) 0.2 (0.0-0.7) K/uL Baso # (Auto) 0.1 (0.0-0.1) K/uL Nucleated RBC % 0.0 /100WBC Nucleated RBCs # 0 K/uL INR APTT (18.6-31.3) SEC VBG pH (7.31-7.41) VBG pCO2 (35-45) mmHG VBG pO2 (30-40) mmHG VBG HCO3 (22-30) mEq/L VBG Total CO2 (41-51) mmol/L VBG Base Excess (-3.0-3.0) Lactate 1.4 (0.20-2.00) mmol/L Sodium 145 (136-148) mmol/L Potassium 5.2 H (3.5-5.1) mmol/L Chloride 113 H (98-107) mmol/L Carbon Dioxide 22.5 (21.0-32.0) mmol/L BUN 41 H (7.0-18.0) mg/dL Creatinine 2.9 H (0.8-1.3) mg/dL Est Cr Clr Drug Dosing TNP Estimated GFR (MDRD) 30.3 ml/min Glucose 253 H (74-106) mg/dL POC Glucose (60-110) mg/dL Calcium 8.0 L (8.5-10.1) mg/dL Magnesium 2.1 (1.8-2.4) mg/dL Total Bilirubin 0.1 L (0.2-1.0) mg/dL AST 21 (15-37) IU/L ALT 25 (14-63) IU/L Alkaline Phosphatase 102 (46-116) U/L Troponin I < 0.050 (0.000-0.056) ng/mL Total Protein 6.2 L (6.4-8.2) g/dL Albumin 2.6 L (3.4-5.0) g/dL Globulin 3.6 (2.6-4.0) g/dL Albumin/Globulin Ratio 0.7 L (0.9-1.6) Lipase 76 (73-393) U/L Urine Color Urine Appearance Urine pH (5.0-8.0) Ur Specific [place] (1.001-1.035) Urine Protein (NEGATIVE) mg/dL Urine Glucose (UA) (NEGATIVE) mg/dL Urine Ketones (NEGATIVE) mg/dL Urine Occult Blood (NEGATIVE) Urine Nitrite (NEGATIVE) Urine Bilirubin (NEGATIVE) Urine Urobilinogen (<2.0) EU/dL Ur Leukocyte Esterase (NEGATIVE) U Hyaline Cast (Auto) (0-2/LPF) Urine RBC (0-2/HPF) Urine WBC (0-5/HPF) Ur Epithelial Cells (NONE-FEW) Urine Bacteria (NEGATIVE) Ketones (NEG) 05/31/20 05/31/20 05/31/20 Range/Units 21:25 21:25 21:25 WBC (4.0-11.0) K/uL RBC (4.50-5.90) M/uL Hgb (13.0-17.0) g/dL Hct (38.0-50.0) % MCV (80.0-98.0) fL MCH (27.0-32.0) pg MCHC (31.0-37.0) g/dL RDW Std Deviation (28.0-62.0) fl RDW Coeff of Dania (11.0-15.0) % Plt Count (150-400) K/uL MPV (7.40-12.00) fL Neut % (Auto) (48.0-80.0) % Lymph % (Auto) (16.0-40.0) % [place] % (Auto) (0.0-15.0) % Eos % (Auto) (0.0-7.0) % Baso % (Auto) (0.0-1.5) % Neut # (Auto) (1.4-5.7) K/uL Lymph # (Auto) (0.6-2.4) K/uL [place] # (Auto) (0.0-0.8) K/uL Eos # (Auto) (0.0-0.7) K/uL Baso # (Auto) (0.0-0.1) K/uL Nucleated RBC % /100WBC Nucleated RBCs # K/uL INR 0.94 APTT 22.8 (18.6-31.3) SEC VBG pH 7.42 H (7.31-7.41) VBG pCO2 33 L (35-45) mmHG VBG pO2 69 H (30-40) mmHG VBG HCO3 22 (22-30) mEq/L VBG Total CO2 20 L (41-51) mmol/L VBG Base Excess -2.5 (-3.0-3.0) Lactate (0.20-2.00) mmol/L Sodium (136-148) mmol/L Potassium (3.5-5.1) mmol/L Chloride (98-107) mmol/L Carbon Dioxide (21.0-32.0) mmol/L BUN (7.0-18.0) mg/dL Creatinine (0.8-1.3) mg/dL Est Cr Clr Drug Dosing Estimated GFR (MDRD) ml/min Glucose (74-106) mg/dL POC Glucose (60-110) mg/dL Calcium (8.5-10.1) mg/dL Magnesium (1.8-2.4) mg/dL Total Bilirubin (0.2-1.0) mg/dL AST (15-37) IU/L ALT (14-63) IU/L Alkaline Phosphatase (46-116) U/L Troponin I (0.000-0.056) ng/mL Total Protein (6.4-8.2) g/dL Albumin (3.4-5.0) g/dL Globulin (2.6-4.0) g/dL Albumin/Globulin Ratio (0.9-1.6) Lipase (73-393) U/L Urine Color Urine Appearance Urine pH (5.0-8.0) Ur Specific [place] (1.001-1.035) Urine Protein (NEGATIVE) mg/dL Urine Glucose (UA) (NEGATIVE) mg/dL Urine Ketones (NEGATIVE) mg/dL Urine Occult Blood (NEGATIVE) Urine Nitrite (NEGATIVE) Urine Bilirubin (NEGATIVE) Urine Urobilinogen (<2.0) EU/dL Ur Leukocyte Esterase (NEGATIVE) U Hyaline Cast (Auto) (0-2/LPF) Urine RBC (0-2/HPF) Urine WBC (0-5/HPF) Ur Epithelial Cells (NONE-FEW) Urine Bacteria (NEGATIVE) Ketones NEGATIVE (NEG) 05/31/20 05/31/20 Range/Units 21:30 21:48 WBC (4.0-11.0) K/uL RBC (4.50-5.90) M/uL Hgb (13.0-17.0) g/dL Hct (38.0-50.0) % MCV (80.0-98.0) fL MCH (27.0-32.0) pg MCHC (31.0-37.0) g/dL RDW Std Deviation (28.0-62.0) fl RDW Coeff of Dania (11.0-15.0) % Plt Count (150-400) K/uL MPV (7.40-12.00) fL Neut % (Auto) (48.0-80.0) % Lymph % (Auto) (16.0-40.0) % [place] % (Auto) (0.0-15.0) % Eos % (Auto) (0.0-7.0) % Baso % (Auto) (0.0-1.5) % Neut # (Auto) (1.4-5.7) K/uL Lymph # (Auto) (0.6-2.4) K/uL [place] # (Auto) (0.0-0.8) K/uL Eos # (Auto) (0.0-0.7) K/uL Baso # (Auto) (0.0-0.1) K/uL Nucleated RBC % /100WBC Nucleated RBCs # K/uL INR APTT (18.6-31.3) SEC VBG pH (7.31-7.41) VBG pCO2 (35-45) mmHG VBG pO2 (30-40) mmHG VBG HCO3 (22-30) mEq/L VBG Total CO2 (41-51) mmol/L VBG Base Excess (-3.0-3.0) Lactate (0.20-2.00) mmol/L Sodium (136-148) mmol/L Potassium (3.5-5.1) mmol/L Chloride (98-107) mmol/L Carbon Dioxide (21.0-32.0) mmol/L BUN (7.0-18.0) mg/dL Creatinine (0.8-1.3) mg/dL Est Cr Clr Drug Dosing Estimated GFR (MDRD) ml/min Glucose (74-106) mg/dL POC Glucose 251 H (60-110) mg/dL Calcium (8.5-10.1) mg/dL Magnesium (1.8-2.4) mg/dL Total Bilirubin (0.2-1.0) mg/dL AST (15-37) IU/L ALT (14-63) IU/L Alkaline Phosphatase (46-116) U/L Troponin I (0.000-0.056) ng/mL Total Protein (6.4-8.2) g/dL Albumin (3.4-5.0) g/dL Globulin (2.6-4.0) g/dL Albumin/Globulin Ratio (0.9-1.6) Lipase (73-393) U/L Urine Color YELLOW Urine Appearance SLT CLOUDY Urine pH 6.5 (5.0-8.0) Ur Specific [place] 1.020 (1.001-1.035) Urine Protein >=300 H (NEGATIVE) mg/dL Urine Glucose (UA) 250 H (NEGATIVE) mg/dL Urine Ketones NEGATIVE (NEGATIVE) mg/dL Urine Occult Blood SMALL H (NEGATIVE) Urine Nitrite NEGATIVE (NEGATIVE) Urine Bilirubin NEGATIVE (NEGATIVE) Urine Urobilinogen 0.2 (<2.0) EU/dL Ur Leukocyte Esterase NEGATIVE (NEGATIVE) U Hyaline Cast (Auto) 0-1 (0-2/LPF) Urine RBC 0-2 (0-2/HPF) Urine WBC 0-2 (0-5/HPF) Ur Epithelial Cells RARE (NONE-FEW) Urine Bacteria RARE (NEGATIVE) Ketones (NEG) Meds: Medications Generic Name Dose Route Start Last Admin Trade Name Freq PRN Reason Stop Dose Admin Sodium Chloride 10 ml 05/31/20 20:53 Saline Flush FLUSH ASDIRECTED PRN Keep Vein Open Sodium Chloride 2.5 ml 05/31/20 20:53 Saline Flush FLUSH ASDIRECTED PRN Keep Vein Open Discontinued Medications Generic Name Dose Route Start Last Admin Trade Name Freq PRN Reason Stop Dose Admin Al Hydroxide/Mg Hydroxide 15 0 ml 05/31/20 20:53 05/31/20 21:40 ml/ Lidocaine HCl 5 ml PO 05/31/20 20:54 Not Given ONETIME ONE Haloperidol Lactate 5 mg 05/31/20 20:56 05/31/20 21:13 Haldol IM 05/31/20 20:57 5 mg ONETIME ONE Administration Sodium Chloride 1,000 mls @ 999 mls/hr 05/31/20 20:53 05/31/20 21:16 Normal Saline IV 05/31/20 21:53 999 mls/hr .Bolus ONE Administration Pantoprazole Sodium 40 mg/ 10 mls @ 300 mls/hr 05/31/20 20:53 05/31/20 21:16 Sodium Chloride IV 05/31/20 20:54 300 mls/hr NOW ONE Administration Labetalol HCl 20 mg 05/31/20 22:11 05/31/20 22:21 Normodyne IVPUSH 05/31/20 22:12 20 mg ONETIME ONE Administration Protocol - Re-Assessments/Exams Free Text/Narrative Re-Assessment/Exam: 05/31/20 21:07 Will get labs/imaging, will treat symptomatically and dispo accordingly. 05/31/20 22:52 Patient much improved s/p medications and IVFB. He has been resting comfortably. His labs were remarkable for leukocytosis to 14, hyperglycemia without DKA, negative serum ketones, mild hyperkalemia without EKG changes. CT imaging remarkable for evidence of gastritis, but otherwise no acute pathology. Will d/c with symptomatic meds for gastritis and recommend GI f/u. Departure - Departure Time of Disposition: 22:53 Disposition: Home, Self-Care 01 Condition: Good Clinical Impression: Hyperglycemia, Vomiting, Emesis, persistent, Poorly-controlled hypertension, Chronic kidney disease, stage 3 (moderate) Gastritis Qualifiers: Gastritis type: unspecified gastritis Chronicity: acute Gastritis bleeding: w ith bleeding Qualified Code(s): K29.01 - Acute gastritis with bleeding Nausea and vomiting Qualifiers: Vomiting type: unspecified Vomiting Intractability: non-intractable Qualified Code(s): R11.2 - Nausea with vomiting, unspecified - Discharge Information Prescriptions: Pantoprazole Sodium [Protonix] 40 mg PO DAILY 30 Days #30 [email or web address].pkt Forms: ED Department Discharge Additional Instructions: The following information is given to patients seen in the emergency department who are being discharged to home. This information is to outline your options for follow-up care. We provide all patients seen in our emergency department with a follow-up referral. The need for follow-up, as well as the timing and circumstances, are variable depending upon the specifics of your emergency department visit. If you don't have a primary care physician on staff, we will provide you with a referral. We always advise you to contact your personal physician following an emergency department visit to inform them of the circumstance of the visit and for follow-up with them and/or the need for any referrals to a consulting specialist. The emergency department will also refer you to a specialist when appropriate. This referral assures that you have the opportunity for follow-up care with a specialist. All of these measure are taken in an effort to provide you with optimal care, which includes your follow-up. Under all circumstances we always encourage you to contact your private physician who remains a resource for coordinating your care. When calling for follow-up care, please make the office aware that this follow-up is from your recent emergency room visit. If for any reason you are refused follow-up, please contact the [facility] Emergency Department at and asked to speak to the emergency department charge nurse. Please follow up with your primary care physician. If you do not have a primary care physician, see below: [facility] [address] [place] [id number] My [facility] [address] [place] [address] You should also follow-up with a administrative assistant coordinator. Unfortunately there are no gastroenterologists locally, and the nearest one that I know of is in [place], [place]. I've provided their contact information below: [address] [place] [address] Thank you for allowing us to participate in your medical care. Sepsis Event Note (ED) - Evaluation Sepsis Screening Result: No Definite Risk - Focused Exam Vital Signs: Vital Signs Temp Pulse Resp BP Pulse Ox 05/31/20 22:24 111 H 16 225/150 H 98 05/31/20 21:42 109 H 20 224/142 H 98 05/31/20 20:47 97.0 F 121 H 22 H 235/147 H 99 - My Orders Last 24 Hours: My Active Orders 05/31/20 20:53 Blood Glucose Check, Bedside [RC] ONETIME Cardiac Monitoring [RC] . DIRECTED EKG Documentation Completion [RC] STAT Pulse Oximetry [RC] ASDIRECTED Sodium Chloride 0.9% [Saline Flush] 10 ml FLUSH ASDIRECTED PRN Sodium Chloride 0.9% [Saline Flush] 2.5 ml FLUSH ASDIRECTED PRN Saline Lock Insert [OM.PC] Stat - Assessment/Plan Last 24 Hours: My Active Orders 05/31/20 20:53 Blood Glucose Check, Bedside [RC] ONETIME Cardiac Monitoring [RC] . DIRECTED EKG Documentation Completion [RC] STAT Pulse Oximetry [RC] ASDIRECTED Sodium Chloride 0.9% [Saline Flush] 10 ml FLUSH ASDIRECTED PRN Sodium Chloride 0.9% [Saline Flush] 2.5 ml FLUSH ASDIRECTED PRN Saline Lock Insert [OM.PC] Stat
[2020-05-31] MEDS: Alum Hydrox/Mag Hydrox/Simeth 15 ML, Lidocaine 2% 5 ML PO ONE ×4 (21:15→21:40)
[2020-05-31 21:56] LABS: BLOOD UREA NITROGEN,BUN 41 mg/dL (7.0-18.0); CARBON DIOXIDE,CO2 22.5 mmol/L (21.0-32.0); CHLORIDE,CL 113 mmol/L (98-107); GLUCOSE RANDOM 253 mg/dL (74-106); LIPASE 76 U/L (73-393); POTASSIUM,K 5.2 mmol/L (3.5-5.1); SODIUM,NA 145 mmol/L (136-148)
[2020-05-31] MEDS ORDERED: Labetalol 100 MG/20 ML MDV IVPUSH ONE (22:11)
--- NOTE | 2020-05-31 22:46 | CT ---
INDICATION: Severe abdominal pain, gastroparesis TECHNIQUE: CT Abdomen and pelvis without i.v. contrast. Coronal and sagittal reformats were obtained. COMPARISON: 04/11/2020 FINDINGS: Lower chest: There is a 5 mm nodule in the right lower lobe abutting the major fissure without interval change. A 4 mm nodule is present in the left lower lobe, not seen on prior exam but may have been excluded from the scan range. Mild anemia is present with the cardiac chambers appearing lucent with respect to the myocardium. Liver: Unremarkable. Spleen: Unremarkable. Pancreas: Unremarkable. Gallbladder: Unremarkable. Kidney: Unremarkable. No kidney or ureteral stones or obstruction seen. Adrenal: Unremarkable. Bowel: Mild wall thickening is present in the distal esophagus. The appendix is normal in appearance and size. Vascular: Unremarkable. Lymph: Small retroperitoneal lymph nodes are present measuring up to 7 mm. Peritoneum: Unremarkable. No pneumoperitoneum is seen. No significant ascites is noted. Pelvis: Moderate diffuse bladder wall thickening is noted. Soft tissue: Unremarkable. Bone: There is a stable sclerotic lesion in the right posterior acetabulum measuring 12 mm. IMPRESSIONS: 1. Moderate diffuse bladder wall thickening is noted. This may be due to chronic bladder outlet obstruction,urinary tract infection or cystitis. 2. There is a 5 mm nodule in the right lower lobe abutting the major fissure without interval change. A 4 mm nodule is present in the left lower lobe, not seen on prior exam but may have been excluded from the scan range. 3. Mild wall thickening is present in the distal esophagus. This may be due to reflux esophagitis. Assessment with outpatient endoscopy or barium swallow may be helpful. Dictated by Josh Vick MD @ 05/31/2020 10:46:35 PM Please note that all CT scans at this facility use dose modulation, iterative reconstruction, and/or weight-based dosing when appropriate to reduce radiation dose to as low as reasonably achievable. Dictated by: Josh Vick MD @ 05/31/2020 22:46:40 (Electronically Signed)
[2020-05-31 23:03] VITALS: BP 213/116; PULSE 101
--- NOTE | 2020-06-01 10:51 | PCM.SN.2 ---
- Free Text/Narrative Note: called to assist with IV. 24 gauge IV placed in left forearm. Arm prepped with chloraprep. 24 gauge IV placed. one attempt.
== END 2020-05-31 23:16 | disposition home or self-care (01) ==
LOC: MW.ED 20:42
DX: K29.01 Acute gastritis with bleeding (principal); I12.9 Hypertensive chronic kidney disease with stage 1 through stage 4 chronic kidney disease, or unspecified chronic kidney disease; N18.3 Chronic kidney disease, stage 3 (moderate); E10.65 Type 1 diabetes mellitus with hyperglycemia; F41.9 Anxiety disorder, unspecified; K21.9 Gastro-esophageal reflux disease without esophagitis; E10.21 Type 1 diabetes mellitus with diabetic nephropathy; E10.22 Type 1 diabetes mellitus with diabetic chronic kidney disease; D63.1 Anemia in chronic kidney disease; E10.43 Type 1 diabetes mellitus with diabetic autonomic (poly)neuropathy; K31.84 Gastroparesis; Z88.0 Allergy status to penicillin; Z79.82 Long term (current) use of aspirin; Z79.4 Long term (current) use of insulin; Z79.899 Other long term (current) drug therapy; Z91.018 Allergy to other foods; Z91.048 Other nonmedicinal substance allergy status
CPT/HCPCS: 36415; 74176; 80053; 81001; 82009; 82803; 82962; 83605; 83690; 83735; 84484; 85025; 85610; 85730; 93005; 96361; 96372; 96374; 96375; 99284; C9113; J1630; J3490; J7030; J7050; 36410; 99283; A9270-GY

== ENCOUNTER 2020-06-01 09:14 | Observation (INO) | payer MEDICARE, MEDICAID ==
[2020-06-01] MEDS ORDERED: diphenhydrAMINE 50 MG/ML SDV IVPUSH ONE (09:26)
[2020-06-01] MEDS ORDERED: Metoclopramide 10 MG/2 ML SDV IVPUSH ONE (09:26)
[2020-06-01] MEDS ORDERED: LORazepam 2 MG/ML SDV IVPUSH ONE (09:26)
[2020-06-01] MEDS ORDERED: Sodium Chloride 0.9% 10 ML Syringe FLUSH PRN (09:26)
[2020-06-01] MEDS ORDERED: Sodium Chloride 0.9% 2.5 ML Syringe FLUSH PRN (09:26)
[2020-06-01] MEDS ORDERED: Famotidine 20 MG/2 ML SDV IVPUSH ONE (09:26)
[2020-06-01] MEDS ORDERED: Sodium Chloride 0.9% 1,000 ML IV ONE ×3 (09:26→12:52)
--- NOTE | 2020-06-01 09:30 | EDM.PDOC ---
ED HPI GENERAL MEDICAL PROBLEM - General Chief Complaint: Abdominal Pain Stated Complaint: VOMITING BLOOD Time Seen by Provider: 06/01/20 09:14 Source of Information: Reports: Patient History Limitations: Reports: No Limitations - History of Present Illness INITIAL COMMENTS - FREE TEXT/NARRATIVE: History of present illness: [Patient is 35-year-old male with chronic abdominal pain who presents to the ER with chief complaint of abdominal pain, nausea, vomiting, occasional blood in the vomit. He was seen here last night for the same. He had labs and a CT scan performed at that time. Work-up was reassuring. He is chronically hypertensive, chronic kidney disease, and he has poor compliance with follow-up in the outpatient setting. States that there are no acute changes in his symptoms when compared with his presentation last night. Just reports that he started vomiting again this morning after being discharged last night. Denies fever chills. Denies chest pain or shortness of breath. Denies dysuria hematuria.] Review of systems: As per history of present illness and below otherwise all systems reviewed and negative. Past medical history: As per history of present illness and as reviewed below otherwise noncontributory. Surgical history: As per history of present illness and as reviewed below otherwise noncontributory. Social history: No reported history of drug or alcohol abuse. Family history: As per history of present illness and as reviewed below otherwise noncontributory. Physical exam: General: Awake, alert, no acute distress, A&O X3. HEENT: Atraumatic, normocephalic, pupils reactive, negative for conjunctival pallor or scleral icterus, mucous membranes moist, throat clear, neck supple, nontender, trachea midline. Lungs: Clear to auscultation, breath sounds equal bilaterally, chest nontender. Heart: tachycardic, normal S1S2, no JVD. Abdomen: Soft, nondistended, nontender. Negative for masses or hepato splenomegaly. Negative for costovertebral tenderness. Pelvis: Stable nontender. Genitourinary: Deferred. Rectal: Deferred. Extremities: Atraumatic, no edema, Neurovascular unremarkable. Neuro: Motor and sensory grossly intact throughout. Exam nonfocal. Diagnostics: [] Therapeutics: [] Impression: [] Plan: [] Definitive disposition and diagnosis as appropriate pending reevaluation and review of above. Abdomen Pain Score (Numeric/FACES): 5 - Related Data Allergies Allergy/AdvReac Type Severity Reaction Status Date / Time shrimp Allergy Severe Swelling Verified 06/01/20 09:29 iodine Allergy Unknown Anaphylactic Verified 06/01/20 09:29 Shock Penicillins Allergy Unknown Anaphylactic Verified 06/01/20 09:29 Shock shellfish derived Allergy Anaphylactic Verified 06/01/20 09:29 Shock gluten Allergy Severe Muscle Uncoded 06/01/20 09:29 Aches Home Meds: Home Meds Doxazosin [Cardura] 4 mg PO BEDTIME 09/29/19 [History] Metoprolol Succinate 200 mg PO DAILY 09/29/19 [History] Torsemide 20 mg PO BID 09/29/19 [History] atorvaSTATin [Lipitor] 80 mg PO BEDTIME 09/29/19 [History] Insulin Aspart [NovoLOG] 0 unit SUBCUT .UP TO 60 UN DAILY 09/30/19 [History] Metoclopramide [Reglan] 5 mg PO TIDAC #90 tablet 10/10/19 [Rx] Pantoprazole [ProTONIX] 40 mg PO DAILY #30 tab.cr 10/10/19 [Rx] Aspirin [Adult Low Dose Aspirin EC] 81 mg PO DAILY 12/07/19 [History] Enalapril Maleate 20 mg PO DAILY 12/07/19 [History] Insulin Glarg,Human.Rec.Analog [Lantus] 38 mg SUBCUT BEDTIME 12/07/19 [History] Iron Ag,Ps/C/Fa6/B12/Zn/SA/Sto [Niferex Tablet] 150 mg PO BID 12/07/19 [History] Sertraline [Zoloft] 50 mg PO DAILY 12/07/19 [History] Spironolactone [Aldactone] 25 mg PO BID 12/07/19 [History] Sucralfate 1 gm PO QIDACANDBED 12/07/19 [History] amLODIPine Besylate [Amlodipine Besylate] 10 mg PO DAILY 12/07/19 [History] hydrALAZINE [Apresoline] 25 mg PO TID 12/07/19 [History] hydroCHLOROthiazide [Hydrochlorothiazide] 25 mg PO DAILY 12/07/19 [History] Ondansetron [Zofran ODT] 4 mg PO Q8H PRN 07/30/20 [History] Pantoprazole Sodium [Protonix] 40 mg PO DAILY 30 Days #30 suspdr.pkt 05/31/20 [Rx] oxyCODONE HCl/Acetaminophen [Percocet 5-325 mg Tablet] 1 each PO Q4H PRN 3 Days #12 tablet 05/31/20 [Rx] Past Medical History - Past Health History Medical/Surgical History: Denies Medical/Surgical History HEENT History: Reports: Impaired Vision Other HEENT History: blind right eye Cardiovascular History: Reports: Hypertension Respiratory History: Reports: None Gastrointestinal History: Reports: Gastritis, GERD, Hiatal Hernia, Other (See Below) Other Gastrointestinal History: h/o gastric ulcers, h/o hiatal hernia; gastroparesis Genitourinary History: Reports: Chronic Renal Insuffiency, Diabetic Nephropathy Musculoskeletal History: Reports: Amputation Other Musculoskeletal History: RLE Neurological History: Reports: Neuropathy, Peripheral Other Neuro History: stroke Psychiatric History: Reports: Anxiety Endocrine/Metabolic History: Reports: Diabetes, Type I Other Endocrine/Metabolic History: brittle diabetic. 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 - Past Surgical History Head Surgeries/Procedures: Reports: None HEENT Surgical History: Reports: None Respiratory Surgical History: Reports: None GI Surgical History: Reports: None Male Surgical History: Reports: None Endocrine Surgical History: Reports: None Oncologic Surgical History: Reports: None Dermatological Surgical History: Reports: None Social & Family History - Family History Family Medical History: Noncontributory Cardiac: Reports: High Cholesterol, Hypertension OBGYN: Reports: Neurological: Reports: None Psychiatric: Reports: Anxiety - Caffeine Use Caffeine Use: Reports: None Other Caffeine Use: daily Caffeine Use Comment: patient is uncooperated - Living Situation & Occupation Living situation: Reports: Single Occupation: Employed (Currently unemployed.) ED ROS GENERAL - Review of Systems Review Of Systems: Comprehensive ROS is negative, except as noted in HPI. ED EXAM, GI/ABD - Physical Exam Exam: See Below (see h and p) Course - Vital Signs Text/Narrative:: Patient is a bounce back from last night. He is hyperglycemic, hypertensive, the hyperglycemia is new compared to when he was here last night. He feels better after getting medicated here in the ED. I believe he would benefit from admission and continued management of his hyperglycemia as well as controlling his hypertension. Otherwise he is agreeable with plan for admission and further work-up and evaluation. Last Recorded V/S: Last Vital Signs Temp 35.9 C L 06/01/20 09:20 Pulse 105 H 06/01/20 13:29 Resp 17 06/01/20 13:29 BP 165/97 H 06/01/20 13:29 Pulse Ox 96 06/01/20 13:29 - Orders/Labs/Meds Orders: Active Orders 24 hr Category Date Time Status Sodium Chloride 0.9% [Saline Flush] Med 06/01/20 09:26 Active 10 ml FLUSH ASDIRECTED PRN Sodium Chloride 0.9% [Saline Flush] Med 06/01/20 09:26 Active 2.5 ml FLUSH ASDIRECTED PRN Saline Lock Insert [OM.PC] Stat Oth 06/01/20 09:26 Ordered Medication Orders Amlodipine Besylate (Norvasc) 10 mg PO DAILY MICHAEL Atorvastatin Calcium (Lipitor) 80 mg PO BEDTIME MICHAEL Hydralazine HCl (Apresoline) 25 mg PO TID MICHAEL Sodium Chloride (Normal Saline) 1,000 mls @ 125 mls/hr IV CONTINUOUS ONE Stop: 06/01/20 20:51 Insulin Aspart (Novolog) 0 unit SUBCUT TIDAC MICHAEL; Protocol Insulin Glargine (Lantus Solostar) 38 units SUBCUT BEDTIME MICHAEL Metoprolol Succinate (Toprol Xl) 200 mg PO DAILY MICHAEL Pantoprazole Sodium (Protonix) 40 mg PO ACBREAKFAST MICHAEL Promethazine HCl (Phenergan) 12.5 mg IM Q6H PRN PRN Reason: Nausea Sertraline HCl (Zoloft) 50 mg PO DAILY MICHAEL Sodium Chloride (Saline Flush) 10 ml FLUSH ASDIRECTED PRN PRN Reason: Keep Vein Open Last Admin: 06/01/20 10:00 Dose: 10 ml Documented by: MURDNIC Sodium Chloride (Saline Flush) 2.5 ml FLUSH ASDIRECTED PRN PRN Reason: Keep Vein Open Last Admin: 06/01/20 10:01 Dose: 2.5 ml Documented by: MURDNIC Sucralfate (Carafate) 1 gm PO QIDACANDBED [facility] Labs: Laboratory Tests 06/01/20 06/01/20 Range/Units 09:55 09:55 WBC 14.41 H (4.0-11.0) K/uL RBC 4.00 L (4.50-5.90) M/uL Hgb 8.6 L (13.0-17.0) g/dL Hct 28.2 L (38.0-50.0) % MCV 70.5 L (80.0-98.0) fL MCH 21.5 L (27.0-32.0) pg MCHC 30.5 L (31.0-37.0) g/dL RDW Std Deviation 44.7 (28.0-62.0) fl RDW Coeff of Dania 18 H (11.0-15.0) % Plt Count 391 (150-400) K/uL MPV 10.70 (7.40-12.00) fL Neut % (Auto) 94.7 H (48.0-80.0) % Lymph % (Auto) 3.5 L (16.0-40.0) % Collin % (Auto) 1.6 (0.0-15.0) % Eos % (Auto) 0.0 (0.0-7.0) % Baso % (Auto) 0.2 (0.0-1.5) % Neut # (Auto) 13.7 H (1.4-5.7) K/uL Lymph # (Auto) 0.5 L (0.6-2.4) K/uL Collin # (Auto) 0.2 (0.0-0.8) K/uL Eos # (Auto) 0.0 (0.0-0.7) K/uL Baso # (Auto) 0.0 (0.0-0.1) K/uL Nucleated RBC % 0.0 /100WBC Nucleated RBCs # 0 K/uL Sodium 138 (136-148) mmol/L Potassium 5.8 H (3.5-5.1) mmol/L Chloride 103 (98-107) mmol/L Carbon Dioxide 19.3 L (21.0-32.0) mmol/L BUN 56 H (7.0-18.0) mg/dL Creatinine 3.5 H (0.8-1.3) mg/dL Est Cr Clr Drug Dosing 28.77 mL/min Estimated GFR (MDRD) 24.4 ml/min Glucose 651 H* (74-106) mg/dL Calcium 7.7 L (8.5-10.1) mg/dL Total Bilirubin 0.2 (0.2-1.0) mg/dL AST 26 (15-37) IU/L ALT 22 (14-63) IU/L Alkaline Phosphatase 106 (46-116) U/L Total Protein 6.2 L (6.4-8.2) g/dL Albumin 2.6 L (3.4-5.0) g/dL Globulin 3.6 (2.6-4.0) g/dL Albumin/Globulin Ratio 0.7 L (0.9-1.6) Meds: Medications Generic Name Dose Route Start Last Admin Trade Name Freq PRN Reason Stop Dose Admin Amlodipine Besylate 10 mg 06/02/20 09:00 Norvasc PO DAILY [facility] Atorvastatin Calcium 80 mg 06/01/20 21:00 Lipitor PO BEDTIME [facility] Hydralazine HCl 25 mg 06/01/20 14:00 Apresoline PO TID [facility] Sodium Chloride 1,000 mls @ 125 mls/hr 06/01/20 12:52 Normal Saline IV 06/01/20 20:51 CONTINUOUS ONE Insulin Aspart 0 unit 06/01/20 17:00 Novolog SUBCUT TIDAC [facility] Protocol Insulin Glargine 38 units 06/01/20 21:00 Lantus Solostar SUBCUT BEDTIME [facility] Metoprolol Succinate 200 mg 06/02/20 09:00 Toprol Xl PO DAILY [facility] Pantoprazole Sodium 40 mg 06/02/20 07:30 Protonix PO ACBREAKFAST [facility] Promethazine HCl 12.5 mg 06/01/20 12:49 Phenergan IM Q6H PRN Nausea Sertraline HCl 50 mg 06/02/20 09:00 Zoloft PO DAILY MICHAEL Sodium Chloride 10 ml 06/01/20 09:26 06/01/20 10:00 Saline Flush FLUSH 10 ml ASDIRECTED PRN Administration Keep Vein Open Sodium Chloride 2.5 ml 06/01/20 09:26 06/01/20 10:01 Saline Flush FLUSH 2.5 ml ASDIRECTED PRN Administration Keep Vein Open Sucralfate 1 gm 06/01/20 17:00 Carafate PO QIDACANDBED MICHAEL Discontinued Medications Generic Name Dose Route Start Last Admin Trade Name Freq PRN Reason Stop Dose Admin Aspirin 81 mg 06/02/20 09:00 Halfprin PO DAILY MICHAEL Diphenhydramine HCl 50 mg 06/01/20 09:26 06/01/20 10:00 Benadryl IVPUSH 06/01/20 09:27 50 mg ONETIME ONE Administration Famotidine 20 mg 06/01/20 09:26 06/01/20 10:00 Pepcid IVPUSH 06/01/20 09:27 20 mg ONETIME ONE Administration Sodium Chloride 1,000 mls @ 999 mls/hr 06/01/20 09:26 06/01/20 10:00 Normal Saline IV 06/01/20 10:26 999 mls/hr .Bolus ONE Administration Sodium Chloride 1,000 mls @ 1,000 mls/hr 06/01/20 11:09 06/01/20 11:18 Normal Saline IV 06/01/20 12:08 1,000 mls/hr .Bolus ONE Administration Insulin Human Regular 10 unit 06/01/20 11:03 06/01/20 11:16 Novolin R IVPUSH 06/01/20 11:04 10 unit ONETIME ONE Administration Protocol Insulin Human Regular 15 unit 06/01/20 11:04 06/01/20 11:17 Novolin R SUBCUT 06/01/20 11:05 15 units ONETIME ONE Administration Protocol Labetalol HCl 20 mg 06/01/20 11:06 06/01/20 11:14 Normodyne IVPUSH 06/01/20 11:07 20 mg ONETIME ONE Administration Protocol Lorazepam 1 mg 06/01/20 09:26 06/01/20 10:00 Ativan IVPUSH 06/01/20 09:27 1 mg ONETIME ONE Administration Metoclopramide HCl 10 mg 06/01/20 09:26 06/01/20 10:00 Reglan IVPUSH 06/01/20 09:27 10 mg ONETIME ONE Administration Departure - Departure Time of Disposition: 11:05 Disposition: Refer to Observation Condition: Fair Clinical Impression: Hyperglycemia, Hyperkalemia Hypertension Qualifiers: Hypertension type: essential hypertension Qualified Code(s): I10 - Essential (primary) hypertension - Discharge Information Sepsis Event Note (ED) - Focused Exam Vital Signs: Vital Signs Temp Pulse Resp BP Pulse Ox 06/01/20 10:54 103 H 147/88 H 96 06/01/20 10:23 106 H 16 167/93 H 96 06/01/20 09:20 35.9 C L 123 H 15 211/113 H 97 - My Orders Last 24 Hours: My Active Orders 06/01/20 09:26 Sodium Chloride 0.9% [Saline Flush] 10 ml FLUSH ASDIRECTED PRN Sodium Chloride 0.9% [Saline Flush] 2.5 ml FLUSH ASDIRECTED PRN Saline Lock Insert [OM.PC] Stat - Assessment/Plan Last 24 Hours: My Active Orders 06/01/20 09:26 Sodium Chloride 0.9% [Saline Flush] 10 ml FLUSH ASDIRECTED PRN Sodium Chloride 0.9% [Saline Flush] 2.5 ml FLUSH ASDIRECTED PRN Saline Lock Insert [OM.PC] Stat
[2020-06-01 10:44] LABS: CARBON DIOXIDE,CO2 19.3 mmol/L (21.0-32.0); POTASSIUM,K 5.8 mmol/L (3.5-5.1)
[2020-06-01] MEDS ORDERED: Insulin Regular, Human 100 Units/ML 10 ML Vial IVPUSH ONE (11:03)
[2020-06-01] MEDS ORDERED: Insulin Regular, Human 100 Units/ML 10 ML Vial SUBCUT ONE (11:04)
[2020-06-01] MEDS ORDERED: Labetalol 100 MG/20 ML MDV IVPUSH ONE (11:06)
[2020-06-01] MEDS ORDERED: Promethazine 25 MG/ML SDV IM PRN (12:49)
--- NOTE | 2020-06-01 12:51 | PCM.HP.2 ---
<Hyacinth Giordano - Last Filed: 06/02/20 12:57> H&P History of Present Illness - General Date of Service: 06/01/20 Admit Problem/Dx: Admission Diagnosis/Problem Admission Diagnosis/Problem Hyperglycemia Source of Information: Patient History Limitations: Reports: No Limitations - History of Present Illness Initial Comments - Free Text/Narative: Patient is a 35 y.o male presenting w. intractable N/V, abdominal pain; was sen in ED last night with labs + CT scans w.o any overt/acute issues; subsequently discharge. Returned this AM with repeat symptoms; Of note pt was recently admitted and subsequently transferred (April) to [facility] for worsening Creatinine, edema and electrolyte disturbances. ED 35-year-old AAM with chronic abdominal pain who presents to the ER with chief complaint of abdominal pain, nausea, vomiting, occasional blood in the vomit. He was seen here last night for the same chief complaint. He had labs and a CT scan performed at that time. Work-up was reassuring. He is chronically hypertensive, chronic kidney disease, and he has poor compliance with follow-up in the outpatient setting. States that there are no acute changes in his symptoms when compared with his presentation last night. Just reports that he started vomiting again this morning after being discharged last night. Denies fever chills. Denies chest pain or shortness of breath. Denies dysuria hematuria. ED course: this AM, BG elevated IV+sub q insulin provided 2 L IV NS bolus N/V: Reglan+Benadryl +ativan provided HTN: IV NS bolus x 2 + labetalol 20 given with moderate reduction of BP: 165/97 from 211/113 Bedside: endorsing increasing abdominal pain accompanied with nausea, vomiting. No blood noted in emesis in ED Abdomen Pain Score (Numeric/FACES): 5 - Related Data Allergies/Adverse Reactions: Allergies Allergy/AdvReac Type Severity Reaction Status Date / Time shrimp Allergy Severe Swelling Verified 06/01/20 09:29 iodine Allergy Unknown Anaphylactic Verified 06/01/20 09:29 Shock Penicillins Allergy Unknown Anaphylactic Verified 06/01/20 09:29 Shock shellfish derived Allergy Anaphylactic Verified 06/01/20 09:29 Shock gluten Allergy Severe Muscle Uncoded 06/01/20 09:29 Aches Home Medications: Home Meds Doxazosin [Cardura] 4 mg PO BEDTIME 01/16/20 [History] Metoprolol Succinate 200 mg PO DAILY 09/29/19 [History] Torsemide 20 mg PO BID 09/29/19 [History] atorvaSTATin [Lipitor] 80 mg PO BEDTIME 09/29/19 [History] Insulin Aspart [NovoLOG] 0 unit SUBCUT .UP TO 60 UN DAILY 09/30/19 [History] Metoclopramide [Reglan] 5 mg PO TIDAC #90 tablet 10/10/19 [Rx] Pantoprazole [ProTONIX] 40 mg PO DAILY #30 tab.cr 10/10/19 [Rx] Aspirin [Adult Low Dose Aspirin EC] 81 mg PO DAILY 12/07/19 [History] Enalapril Maleate 20 mg PO DAILY 12/07/19 [History] Insulin Glarg,Human.Rec.Analog [Lantus] 38 mg SUBCUT BEDTIME 12/07/19 [History] Iron Ag,Ps/C/Fa6/B12/Zn/SA/Sto [Niferex Tablet] 150 mg PO BID 12/07/19 [History] Sertraline [Zoloft] 50 mg PO DAILY 12/07/19 [History] Spironolactone [Aldactone] 25 mg PO BID 12/07/19 [History] Sucralfate 1 gm PO QIDACANDBED 12/07/19 [History] amLODIPine Besylate [Amlodipine Besylate] 10 mg PO DAILY 12/07/19 [History] hydrALAZINE [Apresoline] 25 mg PO TID 12/07/19 [History] hydroCHLOROthiazide [Hydrochlorothiazide] 25 mg PO DAILY 12/07/19 [History] Ondansetron [Zofran ODT] 4 mg PO Q8H PRN 04/12/20 [History] Pantoprazole Sodium [Protonix] 40 mg PO DAILY 30 Days #30 suspdr.pkt 05/31/20 [Rx] oxyCODONE HCl/Acetaminophen [Percocet 5-325 mg Tablet] 1 each PO Q4H PRN 3 Days #12 tablet 05/31/20 [Rx] Past Medical History - Past Health History Medical/Surgical History: Denies Medical/Surgical History HEENT History: Reports: Impaired Vision Other HEENT History: blind right eye Cardiovascular History: Reports: Hypertension Respiratory History: Reports: None Gastrointestinal History: Reports: Gastritis, GERD, Hiatal Hernia, Other (See Below) Other Gastrointestinal History: h/o gastric ulcers, h/o hiatal hernia; gastroparesis Genitourinary History: Reports: Chronic Renal Insuffiency, Diabetic Nephropathy Musculoskeletal History: Reports: Amputation Other Musculoskeletal History: RLE Neurological History: Reports: Neuropathy, Peripheral Other Neuro History: stroke Psychiatric History: Reports: Anxiety Endocrine/Metabolic History: Reports: Diabetes, Type I Other Endocrine/Metabolic History: brittle diabetic. 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 - Past Surgical History Head Surgeries/Procedures: Reports: None HEENT Surgical History: Reports: None Respiratory Surgical History: Reports: None GI Surgical History: Reports: None Male Surgical History: Reports: None Endocrine Surgical History: Reports: None Oncologic Surgical History: Reports: None Dermatological Surgical History: Reports: None Social & Family History - Family History Family Medical History: Noncontributory Cardiac: Reports: High Cholesterol, Hypertension OBGYN: Reports: Neurological: Reports: None Psychiatric: Reports: Anxiety - Tobacco Use Smoking Status *Q: Never Smoker - Caffeine Use Caffeine Use: Reports: None Other Caffeine Use: daily Caffeine Use Comment: patient is uncooperated - Recreational Drug Use Recreational Drug Use: No - Living Situation & Occupation Living situation: Reports: Single Occupation: Employed (Currently unemployed.) H&P Review of Systems - Review of Systems: Review Of Systems: See Below General: Reports: Decreased Appetite. Denies: Fever, Chills, Malaise, Weakness, Fatigue HEENT: Reports: No Symptoms Pulmonary: Reports: No Symptoms Cardiovascular: Reports: No Symptoms Gastrointestinal: Reports: Abdominal Pain, Decreased Appetite, Nausea, Vomiting. Denies: Constipation, Diarrhea Genitourinary: Reports: No Symptoms Musculoskeletal: Reports: No Symptoms Skin: Reports: No Symptoms Psychiatric: Reports: No Symptoms Neurological: Reports: No Symptoms Exam - Exam Exam: See Below - Vital Signs Vital Signs: Last Vital Signs Temp 96.7 F L 06/01/20 09:20 Pulse 103 H 06/01/20 12:24 Resp 16 06/01/20 12:24 BP 170/98 H 06/01/20 12:24 Pulse Ox 98 06/01/20 12:24 Weight: 81.647 kg - Exam General: Alert, Oriented, Mild Distress HEENT: EOMI, Mucosa Moist & [place] Neck: Supple, Trachea Midline Lungs: Clear to Auscultation, Normal Respiratory Effort Cardiovascular: Regular Rhythm, Tachycardia GI/Abdominal Exam: Soft, Other (no tenderness to deep palpation; menitions pain is more epigastric in nature) Extremities: Normal Inspection, Non-Tender, No Pedal Edema Neurological: Cranial Nerves Intact Neuro Extensive - Mental Status: Alert, Oriented x3 - Patient Data Lab Results Last 24 hrs: Laboratory Results - last 24 hr 06/01/20 06/01/20 06/01/20 Range/Units 09:55 09:55 11:55 WBC 14.41 H (4.0-11.0) K/uL RBC 4.00 L (4.50-5.90) M/uL Hgb 8.6 L (13.0-17.0) g/dL Hct 28.2 L (38.0-50.0) % MCV 70.5 L (80.0-98.0) fL MCH 21.5 L (27.0-32.0) pg MCHC 30.5 L (31.0-37.0) g/dL RDW Std Deviation 44.7 (28.0-62.0) fl RDW Coeff of Dania 18 H (11.0-15.0) % Plt Count 391 (150-400) K/uL MPV 10.70 (7.40-12.00) fL Neut % (Auto) 94.7 H (48.0-80.0) % Lymph % (Auto) 3.5 L (16.0-40.0) % [place] % (Auto) 1.6 (0.0-15.0) % Eos % (Auto) 0.0 (0.0-7.0) % Baso % (Auto) 0.2 (0.0-1.5) % Neut # (Auto) 13.7 H (1.4-5.7) K/uL Lymph # (Auto) 0.5 L (0.6-2.4) K/uL [place] # (Auto) 0.2 (0.0-0.8) K/uL Eos # (Auto) 0.0 (0.0-0.7) K/uL Baso # (Auto) 0.0 (0.0-0.1) K/uL Nucleated RBC % 0.0 /100WBC Nucleated RBCs # 0 K/uL Sodium 138 (136-148) mmol/L Potassium 5.8 H (3.5-5.1) mmol/L Chloride 103 (98-107) mmol/L Carbon Dioxide 19.3 L (21.0-32.0) mmol/L BUN 56 H (7.0-18.0) mg/dL Creatinine 3.5 H (0.8-1.3) mg/dL Est Cr Clr Drug Dosing 28.77 mL/min Estimated GFR (MDRD) 24.4 ml/min Glucose 651 H* (74-106) mg/dL POC Glucose 439 H (60-110) mg/dL Calcium 7.7 L (8.5-10.1) mg/dL Total Bilirubin 0.2 (0.2-1.0) mg/dL AST 26 (15-37) IU/L ALT 22 (14-63) IU/L Alkaline Phosphatase 106 (46-116) U/L Total Protein 6.2 L (6.4-8.2) g/dL Albumin 2.6 L (3.4-5.0) g/dL Globulin 3.6 (2.6-4.0) g/dL Albumin/Globulin Ratio 0.7 L (0.9-1.6) 06/01/20 Range/Units 12:21 WBC (4.0-11.0) K/uL RBC (4.50-5.90) M/uL Hgb (13.0-17.0) g/dL Hct (38.0-50.0) % MCV (80.0-98.0) fL MCH (27.0-32.0) pg MCHC (31.0-37.0) g/dL RDW Std Deviation (28.0-62.0) fl RDW Coeff of Dania (11.0-15.0) % Plt Count (150-400) K/uL MPV (7.40-12.00) fL Neut % (Auto) (48.0-80.0) % Lymph % (Auto) (16.0-40.0) % [place] % (Auto) (0.0-15.0) % Eos % (Auto) (0.0-7.0) % Baso % (Auto) (0.0-1.5) % Neut # (Auto) (1.4-5.7) K/uL Lymph # (Auto) (0.6-2.4) K/uL [place] # (Auto) (0.0-0.8) K/uL Eos # (Auto) (0.0-0.7) K/uL Baso # (Auto) (0.0-0.1) K/uL Nucleated RBC % /100WBC Nucleated RBCs # K/uL Sodium (136-148) mmol/L Potassium (3.5-5.1) mmol/L Chloride (98-107) mmol/L Carbon Dioxide (21.0-32.0) mmol/L BUN (7.0-18.0) mg/dL Creatinine (0.8-1.3) mg/dL Est Cr Clr Drug Dosing mL/min Estimated GFR (MDRD) ml/min Glucose (74-106) mg/dL POC Glucose 391 H (60-110) mg/dL Calcium (8.5-10.1) mg/dL Total Bilirubin (0.2-1.0) mg/dL AST (15-37) IU/L ALT (14-63) IU/L Alkaline Phosphatase (46-116) U/L Total Protein (6.4-8.2) g/dL Albumin (3.4-5.0) g/dL Globulin (2.6-4.0) g/dL Albumin/Globulin Ratio (0.9-1.6) Result Diagrams: 06/01/20 09:55 06/01/20 09:55 Sepsis Event Note - Evaluation Sepsis Screening Result: No Definite Risk - Focused Exam Vital Signs: Vital Signs Temp Pulse Resp BP Pulse Ox 06/01/20 12:24 103 H 16 170/98 H 98 06/01/20 11:54 101 H 18 147/85 H 97 06/01/20 11:14 104 H 18 161/94 H 96 06/01/20 10:54 103 H 147/88 H 96 06/01/20 10:23 106 H 16 167/93 H 96 06/01/20 09:20 96.7 F L 123 H 15 211/113 H 97 Problem List Initiated/Reviewed/Updated: Yes Orders Last 24hrs: Active Orders 24 hr Category Date Time Status Patient Status [ADT] Routine ADT 06/01/20 11:07 Active Accu Check [Blood Glucose Check, Bedside] [RC] TIDMEALS Care 06/01/20 12:48 Ordered Up ad Ruth [RC] ASDIRECTED Care 06/01/20 12:47 Ordered Vital Signs [RC] PER UNIT ROUTINE Care 06/01/20 12:46 Ordered NPO Now [Nothing per Oral Now Diet] [DIET] Diet 06/01/20 Dinner Ordered CORONAVIRUS COVID-19 BK [MOLEC] Stat Lab 06/01/20 12:08 Received Insulin Aspart [NovoLOG] Med 06/01/20 17:00 Ordered See Protocol SUBCUT TIDAC Pantoprazole [ProTONIX] Med 06/02/20 09:00 Ordered 40 mg PO DAILY Promethazine [Phenergan] Med 06/01/20 12:49 Ordered 12.5 mg IM Q6H PRN Sodium Chloride 0.9% [Saline Flush] Med 06/01/20 09:26 Active 10 ml FLUSH ASDIRECTED PRN Sodium Chloride 0.9% [Saline Flush] Med 06/01/20 09:26 Active 2.5 ml FLUSH ASDIRECTED PRN Saline Lock Insert [OM.PC] Stat Oth 06/01/20 09:26 Ordered Medication Orders Insulin Aspart (Novolog) 0 unit SUBCUT TIDAC MICHAEL; Protocol Pantoprazole Sodium (Protonix) 40 mg PO DAILY [facility] Promethazine HCl (Phenergan) 12.5 mg IM Q6H PRN PRN Reason: Nausea Sodium Chloride (Saline Flush) 10 ml FLUSH ASDIRECTED PRN PRN Reason: Keep Vein Open Last Admin: 06/01/20 10:00 Dose: 10 ml Documented by: ANNE Sodium Chloride (Saline Flush) 2.5 ml FLUSH ASDIRECTED PRN PRN Reason: Keep Vein Open Last Admin: 06/01/20 10:01 Dose: 2.5 ml Documented by: ANNE Assessment/Plan Comment:: Assessment: 1. Hyperglycemia in a non-compliant Type I Diabetic 2. intractable Nausea and vomiting 3. Leukocytosis 4. Hyperkalemia 5. Microcytic anemia 6. Acute on chronic kidney injury 7. Hypertension Plan. Admit to observation. Full code. i/o's per routine GI: pantoprazole 40 daily DVT: SCD Telemetry COVID negative 1. Hyperglycemia w. intractable N/V: most likely gastroparesis secondary to medication adherence issues Restart LA insulin + sliding scale ; accu-checks w. meals TID IV fluids maintenance Diet: NPO, can advance once BG improves + appetite returns Reglan+phenergan +Maintenance fluids Pain: Ativan 1 mg q 3hours 2. Leukocytosis: will order a UA secondary to concerns for bladder thickening appreciated on CT , possibly due to cystitis; denies dysuria; will treat accordingly. Could also be reactive in nature secondary to dehydration, hyperglycemia, abdominal pain etc; continue to monitor 3. HTN: resistant HTN; most likely , again, ue to medication non-adherence, will selectively restart medications, especially those w.o nephro site of action first secondary to elevated Cr. Monitor and treat; fluid resuscitated in ED renal arterial U/S performed in past year: no REINA Appreciated 4. Hyperkalemia: restart insulin therapy; most likely resolve once insulin restarted; recheck in AM; no CP and or palpitations appreciated; monitor 5. Anemia: heme-occult diagnostic ordered. Subjective blood streaked emesis; no signs of acute hemorrhage and no blood noted in emesis noted; recheck H/H at appropriate intervals; if continuing to trend down; may consult Gen. Surgery hold lovenox; start SCD, hold ASA. Consider Iron infusion in AM if Hgb continues to trend down reticulocyte count : marginally elevated <Gini Menas - Last Filed: 06/02/20 13:45> H&P History of Present Illness - General Admit Problem/Dx: Admission Diagnosis/Problem Admission Diagnosis/Problem Hyperglycemia - History of Present Illness Initial Comments - Free Text/Narative: I performed a history and physical exam of the patient and discussed management with resident. I have reviewed the residents note and agree with documented findings and plan unless otherwise specified in my note. Exam - Vital Signs Vital Signs: Last Vital Signs Temp 36.7 C 06/02/20 12:00 Pulse 84 06/02/20 12:00 Resp 16 06/02/20 12:00 BP 180/110 H 06/02/20 13:27 Pulse Ox 98 06/02/20 12:00 - Patient Data Lab Results Last 24 hrs: Laboratory Results - last 24 hr 06/01/20 06/01/20 06/01/20 Range/Units 09:55 09:55 14:35 WBC (4.0-11.0) K/uL RBC 4.00 L (4.50-5.90) M/uL Hgb (13.0-17.0) g/dL Hct (38.0-50.0) % MCV (80.0-98.0) fL MCH (27.0-32.0) pg MCHC (31.0-37.0) g/dL RDW Std Deviation (28.0-62.0) fl RDW Coeff of Dania (11.0-15.0) % Plt Count (150-400) K/uL MPV (7.40-12.00) fL Neut % (Auto) (48.0-80.0) % Lymph % (Auto) (16.0-40.0) % [place] % (Auto) (0.0-15.0) % Eos % (Auto) (0.0-7.0) % Baso % (Auto) (0.0-1.5) % Neut # (Auto) (1.4-5.7) K/uL Lymph # (Auto) (0.6-2.4) K/uL [place] # (Auto) (0.0-0.8) K/uL Eos # (Auto) (0.0-0.7) K/uL Baso # (Auto) (0.0-0.1) K/uL Nucleated RBC % /100WBC Nucleated RBCs # K/uL Absolute Retic 70.40 (20-80) K/uL Percent Retic 1.8 H (0.5-1.5) % Immature Retic Fraction 4 % INR Sodium (136-148) mmol/L Potassium (3.5-5.1) mmol/L Chloride (98-107) mmol/L Carbon Dioxide (21.0-32.0) mmol/L BUN (7.0-18.0) mg/dL Creatinine (0.8-1.3) mg/dL Est Cr Clr Drug Dosing mL/min Estimated GFR (MDRD) ml/min Glucose (74-106) mg/dL POC Glucose (60-110) mg/dL Calcium (8.5-10.1) mg/dL Iron 26 L (50-175) ug/dL TIBC 204 L (250-450) ug/dL % Saturation 12.75 L (20-55) % Urine Color YELLOW Urine Appearance CLEAR Urine pH 6.0 (5.0-8.0) Ur Specific [place] 1.020 (1.001-1.035) Urine Protein >=300 H (NEGATIVE) mg/dL Urine Glucose (UA) >=1000 (NEGATIVE) mg/dL Urine Ketones 15 H (NEGATIVE) mg/dL Urine Occult Blood SMALL H (NEGATIVE) Urine Nitrite NEGATIVE (NEGATIVE) Urine Bilirubin NEGATIVE (NEGATIVE) Urine Urobilinogen 0.2 (<2.0) EU/dL Ur Leukocyte Esterase NEGATIVE (NEGATIVE) U Hyaline Cast (Auto) 0-1 (0-2/LPF) Urine RBC 0-2 (0-2/HPF) Urine WBC 0-2 (0-5/HPF) Ur Epithelial Cells RARE (NONE-FEW) Urine Bacteria RARE (NEGATIVE) Fine Granular Casts 0-1 (NEGATIVE) Blood Type Antibody Screen Crossmatch 06/01/20 06/01/20 06/01/20 Range/Units 15:40 15:45 17:23 WBC (4.0-11.0) K/uL RBC (4.50-5.90) M/uL Hgb (13.0-17.0) g/dL Hct (38.0-50.0) % MCV (80.0-98.0) fL MCH (27.0-32.0) pg MCHC (31.0-37.0) g/dL RDW Std Deviation (28.0-62.0) fl RDW Coeff of Dania (11.0-15.0) % Plt Count (150-400) K/uL MPV (7.40-12.00) fL Neut % (Auto) (48.0-80.0) % Lymph % (Auto) (16.0-40.0) % [place] % (Auto) (0.0-15.0) % Eos % (Auto) (0.0-7.0) % Baso % (Auto) (0.0-1.5) % Neut # (Auto) (1.4-5.7) K/uL Lymph # (Auto) (0.6-2.4) K/uL [place] # (Auto) (0.0-0.8) K/uL Eos # (Auto) (0.0-0.7) K/uL Baso # (Auto) (0.0-0.1) K/uL Nucleated RBC % /100WBC Nucleated RBCs # K/uL Absolute Retic (20-80) K/uL Percent Retic (0.5-1.5) % Immature Retic Fraction % INR 1.03 Sodium (136-148) mmol/L Potassium (3.5-5.1) mmol/L Chloride (98-107) mmol/L Carbon Dioxide (21.0-32.0) mmol/L BUN (7.0-18.0) mg/dL Creatinine (0.8-1.3) mg/dL Est Cr Clr Drug Dosing mL/min Estimated GFR (MDRD) ml/min Glucose (74-106) mg/dL POC Glucose 143 H 61 (60-110) mg/dL Calcium (8.5-10.1) mg/dL Iron (50-175) ug/dL TIBC (250-450) ug/dL % Saturation (20-55) % Urine Color Urine Appearance Urine pH (5.0-8.0) Ur Specific [place] (1.001-1.035) Urine Protein (NEGATIVE) mg/dL Urine Glucose (UA) (NEGATIVE) mg/dL Urine Ketones (NEGATIVE) mg/dL Urine Occult Blood (NEGATIVE) Urine Nitrite (NEGATIVE) Urine Bilirubin (NEGATIVE) Urine Urobilinogen (<2.0) EU/dL Ur Leukocyte Esterase (NEGATIVE) U Hyaline Cast (Auto) (0-2/LPF) Urine RBC (0-2/HPF) Urine WBC (0-5/HPF) Ur Epithelial Cells (NONE-FEW) Urine Bacteria (NEGATIVE) Fine Granular Casts (NEGATIVE) Blood Type Antibody Screen Crossmatch 06/01/20 06/01/20 06/02/20 Range/Units 18:08 21:25 03:50 WBC (4.0-11.0) K/uL RBC (4.50-5.90) M/uL Hgb (13.0-17.0) g/dL Hct (38.0-50.0) % MCV (80.0-98.0) fL MCH (27.0-32.0) pg MCHC (31.0-37.0) g/dL RDW Std Deviation (28.0-62.0) fl RDW Coeff of Dania (11.0-15.0) % Plt Count (150-400) K/uL MPV (7.40-12.00) fL Neut % (Auto) (48.0-80.0) % Lymph % (Auto) (16.0-40.0) % [place] % (Auto) (0.0-15.0) % Eos % (Auto) (0.0-7.0) % Baso % (Auto) (0.0-1.5) % Neut # (Auto) (1.4-5.7) K/uL Lymph # (Auto) (0.6-2.4) K/uL [place] # (Auto) (0.0-0.8) K/uL Eos # (Auto) (0.0-0.7) K/uL Baso # (Auto) (0.0-0.1) K/uL Nucleated RBC % /100WBC Nucleated RBCs # K/uL Absolute Retic (20-80) K/uL Percent Retic (0.5-1.5) % Immature Retic Fraction % INR Sodium (136-148) mmol/L Potassium (3.5-5.1) mmol/L Chloride (98-107) mmol/L Carbon Dioxide (21.0-32.0) mmol/L BUN (7.0-18.0) mg/dL Creatinine (0.8-1.3) mg/dL Est Cr Clr Drug Dosing mL/min Estimated GFR (MDRD) ml/min Glucose (74-106) mg/dL POC Glucose 75 246 H 26 L (60-110) mg/dL Calcium (8.5-10.1) mg/dL Iron (50-175) ug/dL TIBC (250-450) ug/dL % Saturation (20-55) % Urine Color Urine Appearance Urine pH (5.0-8.0) Ur Specific [place] (1.001-1.035) Urine Protein (NEGATIVE) mg/dL Urine Glucose (UA) (NEGATIVE) mg/dL Urine Ketones (NEGATIVE) mg/dL Urine Occult Blood (NEGATIVE) Urine Nitrite (NEGATIVE) Urine Bilirubin (NEGATIVE) Urine Urobilinogen (<2.0) EU/dL Ur Leukocyte Esterase (NEGATIVE) U Hyaline Cast (Auto) (0-2/LPF) Urine RBC (0-2/HPF) Urine WBC (0-5/HPF) Ur Epithelial Cells (NONE-FEW) Urine Bacteria (NEGATIVE) Fine Granular Casts (NEGATIVE) Blood Type Antibody Screen Crossmatch 06/02/20 06/02/20 06/02/20 Range/Units 05:21 05:50 05:50 WBC 15.36 H (4.0-11.0) K/uL RBC 3.84 L (4.50-5.90) M/uL Hgb 8.2 L (13.0-17.0) g/dL Hct 26.3 L (38.0-50.0) % MCV 68.5 L (80.0-98.0) fL MCH 21.4 L (27.0-32.0) pg MCHC 31.2 (31.0-37.0) g/dL RDW Std Deviation 43.3 (28.0-62.0) fl RDW Coeff of Dania 17 H (11.0-15.0) % Plt Count 387 (150-400) K/uL MPV 10.30 (7.40-12.00) fL Neut % (Auto) 78.0 (48.0-80.0) % Lymph % (Auto) 13.5 L (16.0-40.0) % [place] % (Auto) 7.4 (0.0-15.0) % Eos % (Auto) 0.7 (0.0-7.0) % Baso % (Auto) 0.4 (0.0-1.5) % Neut # (Auto) 12.0 H (1.4-5.7) K/uL Lymph # (Auto) 2.1 (0.6-2.4) K/uL [place] # (Auto) 1.1 H (0.0-0.8) K/uL Eos # (Auto) 0.1 (0.0-0.7) K/uL Baso # (Auto) 0.1 (0.0-0.1) K/uL Nucleated RBC % 0.0 /100WBC Nucleated RBCs # 0 K/uL Absolute Retic (20-80) K/uL Percent Retic (0.5-1.5) % Immature Retic Fraction % INR Sodium 143 (136-148) mmol/L Potassium 4.2 (3.5-5.1) mmol/L Chloride 111 H (98-107) mmol/L Carbon Dioxide 21.4 (21.0-32.0) mmol/L BUN 46 H (7.0-18.0) mg/dL Creatinine 3.2 H (0.8-1.3) mg/dL Est Cr Clr Drug Dosing 31.47 mL/min Estimated GFR (MDRD) 27.1 ml/min Glucose 58 L (74-106) mg/dL POC Glucose 74 (60-110) mg/dL Calcium 8.2 L (8.5-10.1) mg/dL Iron (50-175) ug/dL TIBC (250-450) ug/dL % Saturation (20-55) % Urine Color Urine Appearance Urine pH (5.0-8.0) Ur Specific [place] (1.001-1.035) Urine Protein (NEGATIVE) mg/dL Urine Glucose (UA) (NEGATIVE) mg/dL Urine Ketones (NEGATIVE) mg/dL Urine Occult Blood (NEGATIVE) Urine Nitrite (NEGATIVE) Urine Bilirubin (NEGATIVE) Urine Urobilinogen (<2.0) EU/dL Ur Leukocyte Esterase (NEGATIVE) U Hyaline Cast (Auto) (0-2/LPF) Urine RBC (0-2/HPF) Urine WBC (0-5/HPF) Ur Epithelial Cells (NONE-FEW) Urine Bacteria (NEGATIVE) Fine Granular Casts (NEGATIVE) Blood Type Antibody Screen Crossmatch 06/02/20 06/02/20 06/02/20 Range/Units 08:10 09:04 10:20 WBC (4.0-11.0) K/uL RBC (4.50-5.90) M/uL Hgb (13.0-17.0) g/dL Hct (38.0-50.0) % MCV (80.0-98.0) fL MCH (27.0-32.0) pg MCHC (31.0-37.0) g/dL RDW Std Deviation (28.0-62.0) fl RDW Coeff of Dania (11.0-15.0) % Plt Count (150-400) K/uL MPV (7.40-12.00) fL Neut % (Auto) (48.0-80.0) % Lymph % (Auto) (16.0-40.0) % [place] % (Auto) (0.0-15.0) % Eos % (Auto) (0.0-7.0) % Baso % (Auto) (0.0-1.5) % Neut # (Auto) (1.4-5.7) K/uL Lymph # (Auto) (0.6-2.4) K/uL [place] # (Auto) (0.0-0.8) K/uL Eos # (Auto) (0.0-0.7) K/uL Baso # (Auto) (0.0-0.1) K/uL Nucleated RBC % /100WBC Nucleated RBCs # K/uL Absolute Retic (20-80) K/uL Percent Retic (0.5-1.5) % Immature Retic Fraction % INR Sodium (136-148) mmol/L Potassium (3.5-5.1) mmol/L Chloride (98-107) mmol/L Carbon Dioxide (21.0-32.0) mmol/L BUN (7.0-18.0) mg/dL Creatinine (0.8-1.3) mg/dL Est Cr Clr Drug Dosing mL/min Estimated GFR (MDRD) ml/min Glucose (74-106) mg/dL POC Glucose 33 L 113 H (60-110) mg/dL Calcium (8.5-10.1) mg/dL Iron (50-175) ug/dL TIBC (250-450) ug/dL % Saturation (20-55) % Urine Color Urine Appearance Urine pH (5.0-8.0) Ur Specific [place] (1.001-1.035) Urine Protein (NEGATIVE) mg/dL Urine Glucose (UA) (NEGATIVE) mg/dL Urine Ketones (NEGATIVE) mg/dL Urine Occult Blood (NEGATIVE) Urine Nitrite (NEGATIVE) Urine Bilirubin (NEGATIVE) Urine Urobilinogen (<2.0) EU/dL Ur Leukocyte Esterase (NEGATIVE) U Hyaline Cast (Auto) (0-2/LPF) Urine RBC (0-2/HPF) Urine WBC (0-5/HPF) Ur Epithelial Cells (NONE-FEW) Urine Bacteria (NEGATIVE) Fine Granular Casts (NEGATIVE) Blood Type O POSITIVE Antibody Screen NEGATIVE Crossmatch See Detail 06/02/20 06/02/20 Range/Units 11:38 13:28 WBC (4.0-11.0) K/uL RBC (4.50-5.90) M/uL Hgb (13.0-17.0) g/dL Hct (38.0-50.0) % MCV (80.0-98.0) fL MCH (27.0-32.0) pg MCHC (31.0-37.0) g/dL RDW Std Deviation (28.0-62.0) fl RDW Coeff of Dania (11.0-15.0) % Plt Count (150-400) K/uL MPV (7.40-12.00) fL Neut % (Auto) (48.0-80.0) % Lymph % (Auto) (16.0-40.0) % [place] % (Auto) (0.0-15.0) % Eos % (Auto) (0.0-7.0) % Baso % (Auto) (0.0-1.5) % Neut # (Auto) (1.4-5.7) K/uL Lymph # (Auto) (0.6-2.4) K/uL [place] # (Auto) (0.0-0.8) K/uL Eos # (Auto) (0.0-0.7) K/uL Baso # (Auto) (0.0-0.1) K/uL Nucleated RBC % /100WBC Nucleated RBCs # K/uL Absolute Retic (20-80) K/uL Percent Retic (0.5-1.5) % Immature Retic Fraction % INR Sodium (136-148) mmol/L Potassium (3.5-5.1) mmol/L Chloride (98-107) mmol/L Carbon Dioxide (21.0-32.0) mmol/L BUN (7.0-18.0) mg/dL Creatinine (0.8-1.3) mg/dL Est Cr Clr Drug Dosing mL/min Estimated GFR (MDRD) ml/min Glucose (74-106) mg/dL POC Glucose 52 L 63 (60-110) mg/dL Calcium (8.5-10.1) mg/dL Iron (50-175) ug/dL TIBC (250-450) ug/dL % Saturation (20-55) % Urine Color Urine Appearance Urine pH (5.0-8.0) Ur Specific [place] (1.001-1.035) Urine Protein (NEGATIVE) mg/dL Urine Glucose (UA) (NEGATIVE) mg/dL Urine Ketones (NEGATIVE) mg/dL Urine Occult Blood (NEGATIVE) Urine Nitrite (NEGATIVE) Urine Bilirubin (NEGATIVE) Urine Urobilinogen (<2.0) EU/dL Ur Leukocyte Esterase (NEGATIVE) U Hyaline Cast (Auto) (0-2/LPF) Urine RBC (0-2/HPF) Urine WBC (0-5/HPF) Ur Epithelial Cells (NONE-FEW) Urine Bacteria (NEGATIVE) Fine Granular Casts (NEGATIVE) Blood Type Antibody Screen Crossmatch Result Diagrams: 06/02/20 05:50 06/02/20 05:50 Peter Results Last 24 hrs: Microbiology 06/02/20 06:00 Stool Occult Blood (PETER) - Final Stool / Feces Sepsis Event Note - Focused Exam Vital Signs: Vital Signs Temp Pulse Pulse Resp BP BP Pulse Ox 06/02/20 13:27 180/110 H 06/02/20 12:00 36.7 C 84 16 180/110 H 98 06/02/20 09:25 78 119/114 H 06/02/20 08:14 36.9 C 78 18 192/114 H 98 06/02/20 06:31 180/101 H 06/02/20 05:00 36.1 C 98 18 180/101 H 98 Orders Last 24hrs: Active Orders 24 hr Category Date Time Status Accu Check [Blood Glucose Check, Bedside] [RC] TIDMEALS Care 06/01/20 12:48 Active Antiembolic Devices [RC] PER UNIT ROUTINE Care 06/01/20 12:54 Active Communication Order [RC] ASDIRECTED Care 06/02/20 13:08 Active Communication Order [RC] STAT Care 06/02/20 04:04 Active Up ad Ruth [RC] ASDIRECTED Care 06/01/20 12:47 Active Vital Signs [RC] PER UNIT ROUTINE Care 06/01/20 12:46 Active Soft Diet [DIET] Diet 06/02/20 Dinner Active BMP [BASIC METABOLIC PANEL,BMP] [CHEM] AM Lab 06/03/20 05:11 Ordered BMP [BASIC METABOLIC PANEL,BMP] [CHEM] AM Lab 06/04/20 05:11 Ordered CBC WITH AUTO DIFF [HEME] AM Lab 06/03/20 05:11 Ordered CBC WITH AUTO DIFF [HEME] AM Lab 06/04/20 05:11 Ordered CULTURE URINE [RM] Routine Lab 06/01/20 14:35 Received PACKED CELLS [RED BLOOD CELLS LP] [BBK] Routine Lab 06/02/20 10:20 Results TYPE AND SCREEN [BBK] Stat Lab 06/02/20 10:20 Results Dextrose 5%-0.45% NaCl [Dextrose 5%-1/2 NS] 1,000 ml Med 06/02/20 12:00 Active IV ASDIRECTED Dextrose 50% in Water Med 06/02/20 12:02 Active 25 ml IVPUSH ASDIRECTED PRN HYDROmorphone [Dilaudid] Med 06/01/20 21:23 Active 0.5 mg IVPUSH Q3H PRN Insulin Aspart [NovoLOG] Med 06/01/20 17:00 Active See Protocol SUBCUT TIDAC Insulin Glarg,Human.Rec.Analog [LantUS Solostar] Med 06/01/20 21:00 Active 38 units SUBCUT BEDTIME LORazepam [Ativan] Med 06/01/20 19:16 Active 1 mg IVPUSH Q3H PRN Labetalol [Normodyne] Med 06/01/20 23:15 Active 10 mg IVPUSH Q4H PRN Metoprolol Succinate [Toprol XL] Med 06/02/20 09:00 Active 200 mg PO DAILY Pantoprazole [ProTONIX IV] 40 mg Med 06/01/20 21:00 Active Sodium Chloride 0.9% [Normal Saline] 10 ml IV BID Promethazine [Phenergan] Med 06/01/20 12:49 Active 12.5 mg IM Q6H PRN Sertraline [Zoloft] Med 06/02/20 09:00 Active 50 mg PO DAILY amLODIPine [Norvasc] Med 06/02/20 09:00 Active 10 mg PO DAILY atorvaSTATin [Lipitor] Med 06/01/20 21:00 Active 80 mg PO BEDTIME hydrALAZINE [Apresoline] Med 06/01/20 14:00 Active 25 mg PO TID Sequential Compression Device [OM.PC] Routine Oth 06/01/20 12:54 Ordered Transfuse PRBC [Transfuse Red Blood Cells] [COMM] Oth 06/02/20 12:48 Ordered Urgent Code Status [Resuscitation Status] Routine Resus Stat 06/01/20 12:53 Ordered Medication Orders Amlodipine Besylate (Norvasc) 10 mg PO DAILY [facility] Last Admin: 06/02/20 09:25 Dose: 10 mg Documented by: KANNAN Atorvastatin Calcium (Lipitor) 80 mg PO BEDTIME [facility] Last Admin: 06/01/20 21:29 Dose: 80 mg Documented by: GABRIELLE Dextrose/Water (Dextrose 50% In Water) 25 ml IVPUSH ASDIRECTED PRN PRN Reason: Blood Glucose Last Admin: 06/02/20 12:10 Dose: 25 ml Documented by: [id number] Hydralazine HCl (Apresoline) 25 mg PO TID [facility] Last Admin: 06/02/20 13:27 Dose: 25 mg Documented by: Admin: 06/02/20 06:31 Dose: 25 mg Documented by: Admin: 06/01/20 22:38 Dose: 25 mg Documented by: Admin: 06/01/20 15:19 Dose: 25 mg Documented by: WES Hydromorphone HCl (Dilaudid) 0.5 mg IVPUSH Q3H PRN PRN Reason: Pain Last Admin: 06/02/20 09:26 Dose: 0.5 mg Documented by: Admin: 06/02/20 06:00 Dose: 0.5 mg Documented by: Admin: 06/01/20 21:35 Dose: 0.5 mg Documented by: GABRIELLE Pantoprazole Sodium 40 mg/ (Sodium Chloride) 10 mls @ 300 mls/hr IV BID [facility] Last Admin: 06/02/20 09:24 Dose: 300 mls/hr Documented by: Infusion: 06/01/20 21:22 Dose: 300 mls/hr Documented by: Admin: 06/01/20 21:20 Dose: 300 mls/hr Documented by: GABRIELLE Dextrose/Sodium Chloride (Dextrose 5%-1/2 Ns) 1,000 mls @ 100 mls/hr IV ASDIRECTED [facility] Insulin Aspart (Novolog) 0 unit SUBCUT TIDAC [facility]; Protocol Last Admin: 06/02/20 12:35 Dose: Not Given Documented by: Admin: 06/02/20 08:54 Dose: Not Given Documented by: Admin: 06/01/20 17:30 Dose: Not Given Documented by: CHRIS Insulin Glargine (Lantus Solostar) 38 units SUBCUT BEDTIME [facility] Last Admin: 06/01/20 21:26 Dose: 38 units Documented by: GABRIELLE Labetalol HCl (Normodyne) 10 mg IVPUSH Q4H PRN; Protocol PRN Reason: Tachycardia Lorazepam (Ativan) 1 mg IVPUSH Q3H PRN PRN Reason: Anxiety Metoprolol Succinate (Toprol Xl) 200 mg PO DAILY [facility] Last Admin: 06/02/20 09:25 Dose: 200 mg Documented by: KANNAN Promethazine HCl (Phenergan) 12.5 mg IM Q6H PRN PRN Reason: Nausea Last Admin: 06/01/20 17:27 Dose: 12.5 mg Documented by: [id number] Sertraline HCl (Zoloft) 50 mg PO DAILY [facility] Last Admin: 06/02/20 09:26 Dose: Not Given Documented by: KANNAN Sodium Chloride (Saline Flush) 10 ml FLUSH ASDIRECTED PRN PRN Reason: Keep Vein Open Last Admin: 06/01/20 10:00 Dose: 10 ml Documented by: ANNE Sodium Chloride (Saline Flush) 2.5 ml FLUSH ASDIRECTED PRN PRN Reason: Keep Vein Open Last Admin: 06/01/20 10:01 Dose: 2.5 ml Documented by: ANNE Assessment/Plan Comment:: I performed a history and physical exam of the patient and discussed management with resident. I have reviewed the residents note and agree with documented findings and plan unless otherwise specified in my note. I
[2020-06-01] MEDS ORDERED: LORazepam 2 MG/ML SDV IVPUSH PRN ×2 (15:17→19:16)
[2020-06-01] MEDS: hydrALAZINE 25 MG Tab PO SCH ×2 (15:19→22:38)
[2020-06-01] MEDS ORDERED: Sucralfate 1 GM Tab PO SCH (17:00)
[2020-06-01] MEDS: Insulin Aspart 100 Units/ML 3 ML Pen SUBCUT SCH (17:30)
[2020-06-01] MEDS ORDERED: HYDROmorphone 1 MG/ML Syringe IVPUSH ONE (17:45)
[2020-06-01] MEDS ORDERED: Metoprolol Tartrate 5 MG/5 ML SDV IVPUSH ONE (18:42)
[2020-06-01] MEDS: Pantoprazole 40 MG in Sodium Chloride 0.9% 10 ML IV SCH (21:20)
[2020-06-01] MEDS: Insulin Glargine,Human Rec. Analog 100 Units/ML 3 ML Pen SUBCUT SCH (21:26)
[2020-06-01] MEDS: atorvaSTATin 40 MG Tab PO SCH (21:29)
[2020-06-01] MEDS: HYDROmorphone 2 MG/ML Syringe IVPUSH PRN (21:35)
[2020-06-02] MEDS ORDERED: 50% Dextrose in Water 50 ML Syringe IVPUSH ONE ×2 (04:00→18:23)
[2020-06-02] MEDS ORDERED: 50% Dextrose in Water 50 ML Syringe IVPUSH PRN (04:05)
[2020-06-02] MEDS: HYDROmorphone 2 MG/ML Syringe IVPUSH PRN ×3 (06:00→20:28)
[2020-06-02] MEDS: hydrALAZINE 25 MG Tab PO SCH ×3 (06:31→22:57)
[2020-06-02 06:35] LABS: CARBON DIOXIDE,CO2 21.4 mmol/L (21.0-32.0); POTASSIUM,K 4.2 mmol/L (3.5-5.1)
[2020-06-02] MEDS ORDERED: Pantoprazole 40 MG Tab.CR PO SCH (07:30)
[2020-06-02] MEDS: Insulin Aspart 100 Units/ML 3 ML Pen SUBCUT SCH ×3 (08:54→17:06)
[2020-06-02] MEDS ORDERED: Aspirin 81 MG Tab.EC PO SCH (09:00)
[2020-06-02] MEDS: Pantoprazole 40 MG in Sodium Chloride 0.9% 10 ML IV SCH ×2 (09:24→20:29)
[2020-06-02] MEDS: amLODIPine 5 MG Tab PO SCH (09:25)
[2020-06-02] MEDS: Metoprolol Succinate 100 MG Tab.ER PO SCH (09:25)
[2020-06-02] MEDS: Sertraline 50 MG Tab PO SCH (09:26)
[2020-06-02] MEDS ORDERED: Iron Sucrose Complex 100 MG in Sodium Chloride 0.9% 100 ML IV ONE (09:59)
[2020-06-02] MEDS ORDERED: Dextrose 5%-0.45% NaCl 1,000 ML IV SCH (12:00)
[2020-06-02] MEDS: 50% Dextrose in Water 50 ML Syringe IVPUSH PRN ×2 (12:10→17:03)
--- NOTE | 2020-06-02 13:07 | PCM.PN ---
- General Info Date of Service: 06/02/20 Subjective Update: Bedside: mentions nausea and epigastric cramps; is endorsing an appetite however - Review of Systems General: Reports: No Symptoms HEENT: Reports: No Symptoms Pulmonary: Reports: No Symptoms Cardiovascular: Reports: No Symptoms Gastrointestinal: Reports: Abdominal Pain, Nausea. Denies: Decreased Appetite, Diarrhea, Vomiting Genitourinary: Reports: No Symptoms Musculoskeletal: Reports: No Symptoms Skin: Reports: No Symptoms Neurological: Reports: No Symptoms Psychiatric: Reports: No Symptoms - Patient Data Vitals - Most Recent: Last Vital Signs Temp 98.0 F 06/02/20 12:00 Pulse 84 06/02/20 12:00 Resp 16 06/02/20 12:00 BP 180/110 H 06/02/20 12:00 Pulse Ox 98 06/02/20 12:00 Weight - Most Recent: 81.647 kg I&O - Last 24 Hours: Intake & Output 06/01/20 06/02/20 06/02/20 22:59 06:59 14:59 Intake Total 130 950 Output Total 850 850 Balance -720 100 Lab Results Last 24 Hours: Laboratory Results - last 24 hr 06/01/20 06/01/20 06/01/20 Range/Units 09:55 09:55 12:08 WBC (4.0-11.0) K/uL RBC 4.00 L (4.50-5.90) M/uL Hgb (13.0-17.0) g/dL Hct (38.0-50.0) % MCV (80.0-98.0) fL MCH (27.0-32.0) pg MCHC (31.0-37.0) g/dL RDW Std Deviation (28.0-62.0) fl RDW Coeff of Dania (11.0-15.0) % Plt Count (150-400) K/uL MPV (7.40-12.00) fL Neut % (Auto) (48.0-80.0) % Lymph % (Auto) (16.0-40.0) % [place] % (Auto) (0.0-15.0) % Eos % (Auto) (0.0-7.0) % Baso % (Auto) (0.0-1.5) % Neut # (Auto) (1.4-5.7) K/uL Lymph # (Auto) (0.6-2.4) K/uL [place] # (Auto) (0.0-0.8) K/uL Eos # (Auto) (0.0-0.7) K/uL Baso # (Auto) (0.0-0.1) K/uL Nucleated RBC % /100WBC Nucleated RBCs # K/uL Absolute Retic 70.40 (20-80) K/uL Percent Retic 1.8 H (0.5-1.5) % Immature Retic Fraction 4 % INR Sodium (136-148) mmol/L Potassium (3.5-5.1) mmol/L Chloride (98-107) mmol/L Carbon Dioxide (21.0-32.0) mmol/L BUN (7.0-18.0) mg/dL Creatinine (0.8-1.3) mg/dL Est Cr Clr Drug Dosing mL/min Estimated GFR (MDRD) ml/min Glucose (74-106) mg/dL POC Glucose (60-110) mg/dL Calcium (8.5-10.1) mg/dL Iron 26 L (50-175) ug/dL TIBC 204 L (250-450) ug/dL % Saturation 12.75 L (20-55) % Urine Color Urine Appearance Urine pH (5.0-8.0) Ur Specific [place] (1.001-1.035) Urine Protein (NEGATIVE) mg/dL Urine Glucose (UA) (NEGATIVE) mg/dL Urine Ketones (NEGATIVE) mg/dL Urine Occult Blood (NEGATIVE) Urine Nitrite (NEGATIVE) Urine Bilirubin (NEGATIVE) Urine Urobilinogen (<2.0) EU/dL Ur Leukocyte Esterase (NEGATIVE) U Hyaline Cast (Auto) (0-2/LPF) Urine RBC (0-2/HPF) Urine WBC (0-5/HPF) Ur Epithelial Cells (NONE-FEW) Urine Bacteria (NEGATIVE) Fine Granular Casts (NEGATIVE) SARS-CoV-2 RNA (BK) NEGATIVE (NEGATIVE) Blood Type Antibody Screen Crossmatch 06/01/20 06/01/20 06/01/20 Range/Units 13:23 14:35 15:40 WBC (4.0-11.0) K/uL RBC (4.50-5.90) M/uL Hgb (13.0-17.0) g/dL Hct (38.0-50.0) % MCV (80.0-98.0) fL MCH (27.0-32.0) pg MCHC (31.0-37.0) g/dL RDW Std Deviation (28.0-62.0) fl RDW Coeff of Dania (11.0-15.0) % Plt Count (150-400) K/uL MPV (7.40-12.00) fL Neut % (Auto) (48.0-80.0) % Lymph % (Auto) (16.0-40.0) % [place] % (Auto) (0.0-15.0) % Eos % (Auto) (0.0-7.0) % Baso % (Auto) (0.0-1.5) % Neut # (Auto) (1.4-5.7) K/uL Lymph # (Auto) (0.6-2.4) K/uL [place] # (Auto) (0.0-0.8) K/uL Eos # (Auto) (0.0-0.7) K/uL Baso # (Auto) (0.0-0.1) K/uL Nucleated RBC % /100WBC Nucleated RBCs # K/uL Absolute Retic (20-80) K/uL Percent Retic (0.5-1.5) % Immature Retic Fraction % INR 1.03 Sodium (136-148) mmol/L Potassium (3.5-5.1) mmol/L Chloride (98-107) mmol/L Carbon Dioxide (21.0-32.0) mmol/L BUN (7.0-18.0) mg/dL Creatinine (0.8-1.3) mg/dL Est Cr Clr Drug Dosing mL/min Estimated GFR (MDRD) ml/min Glucose (74-106) mg/dL POC Glucose 349 H (60-110) mg/dL Calcium (8.5-10.1) mg/dL Iron (50-175) ug/dL TIBC (250-450) ug/dL % Saturation (20-55) % Urine Color YELLOW Urine Appearance CLEAR Urine pH 6.0 (5.0-8.0) Ur Specific [place] 1.020 (1.001-1.035) Urine Protein >=300 H (NEGATIVE) mg/dL Urine Glucose (UA) >=1000 (NEGATIVE) mg/dL Urine Ketones 15 H (NEGATIVE) mg/dL Urine Occult Blood SMALL H (NEGATIVE) Urine Nitrite NEGATIVE (NEGATIVE) Urine Bilirubin NEGATIVE (NEGATIVE) Urine Urobilinogen 0.2 (<2.0) EU/dL Ur Leukocyte Esterase NEGATIVE (NEGATIVE) U Hyaline Cast (Auto) 0-1 (0-2/LPF) Urine RBC 0-2 (0-2/HPF) Urine WBC 0-2 (0-5/HPF) Ur Epithelial Cells RARE (NONE-FEW) Urine Bacteria RARE (NEGATIVE) Fine Granular Casts 0-1 (NEGATIVE) SARS-CoV-2 RNA (BK) (NEGATIVE) Blood Type Antibody Screen Crossmatch 06/01/20 06/01/20 06/01/20 Range/Units 15:45 17:23 18:08 WBC (4.0-11.0) K/uL RBC (4.50-5.90) M/uL Hgb (13.0-17.0) g/dL Hct (38.0-50.0) % MCV (80.0-98.0) fL MCH (27.0-32.0) pg MCHC (31.0-37.0) g/dL RDW Std Deviation (28.0-62.0) fl RDW Coeff of Dania (11.0-15.0) % Plt Count (150-400) K/uL MPV (7.40-12.00) fL Neut % (Auto) (48.0-80.0) % Lymph % (Auto) (16.0-40.0) % [place] % (Auto) (0.0-15.0) % Eos % (Auto) (0.0-7.0) % Baso % (Auto) (0.0-1.5) % Neut # (Auto) (1.4-5.7) K/uL Lymph # (Auto) (0.6-2.4) K/uL [place] # (Auto) (0.0-0.8) K/uL Eos # (Auto) (0.0-0.7) K/uL Baso # (Auto) (0.0-0.1) K/uL Nucleated RBC % /100WBC Nucleated RBCs # K/uL Absolute Retic (20-80) K/uL Percent Retic (0.5-1.5) % Immature Retic Fraction % INR Sodium (136-148) mmol/L Potassium (3.5-5.1) mmol/L Chloride (98-107) mmol/L Carbon Dioxide (21.0-32.0) mmol/L BUN (7.0-18.0) mg/dL Creatinine (0.8-1.3) mg/dL Est Cr Clr Drug Dosing mL/min Estimated GFR (MDRD) ml/min Glucose (74-106) mg/dL POC Glucose 143 H 61 75 (60-110) mg/dL Calcium (8.5-10.1) mg/dL Iron (50-175) ug/dL TIBC (250-450) ug/dL % Saturation (20-55) % Urine Color Urine Appearance Urine pH (5.0-8.0) Ur Specific [place] (1.001-1.035) Urine Protein (NEGATIVE) mg/dL Urine Glucose (UA) (NEGATIVE) mg/dL Urine Ketones (NEGATIVE) mg/dL Urine Occult Blood (NEGATIVE) Urine Nitrite (NEGATIVE) Urine Bilirubin (NEGATIVE) Urine Urobilinogen (<2.0) EU/dL Ur Leukocyte Esterase (NEGATIVE) U Hyaline Cast (Auto) (0-2/LPF) Urine RBC (0-2/HPF) Urine WBC (0-5/HPF) Ur Epithelial Cells (NONE-FEW) Urine Bacteria (NEGATIVE) Fine Granular Casts (NEGATIVE) SARS-CoV-2 RNA (BK) (NEGATIVE) Blood Type Antibody Screen Crossmatch 06/01/20 06/02/20 06/02/20 Range/Units 21:25 03:50 05:21 WBC (4.0-11.0) K/uL RBC (4.50-5.90) M/uL Hgb (13.0-17.0) g/dL Hct (38.0-50.0) % MCV (80.0-98.0) fL MCH (27.0-32.0) pg MCHC (31.0-37.0) g/dL RDW Std Deviation (28.0-62.0) fl RDW Coeff of Dania (11.0-15.0) % Plt Count (150-400) K/uL MPV (7.40-12.00) fL Neut % (Auto) (48.0-80.0) % Lymph % (Auto) (16.0-40.0) % [place] % (Auto) (0.0-15.0) % Eos % (Auto) (0.0-7.0) % Baso % (Auto) (0.0-1.5) % Neut # (Auto) (1.4-5.7) K/uL Lymph # (Auto) (0.6-2.4) K/uL [place] # (Auto) (0.0-0.8) K/uL Eos # (Auto) (0.0-0.7) K/uL Baso # (Auto) (0.0-0.1) K/uL Nucleated RBC % /100WBC Nucleated RBCs # K/uL Absolute Retic (20-80) K/uL Percent Retic (0.5-1.5) % Immature Retic Fraction % INR Sodium (136-148) mmol/L Potassium (3.5-5.1) mmol/L Chloride (98-107) mmol/L Carbon Dioxide (21.0-32.0) mmol/L BUN (7.0-18.0) mg/dL Creatinine (0.8-1.3) mg/dL Est Cr Clr Drug Dosing mL/min Estimated GFR (MDRD) ml/min Glucose (74-106) mg/dL POC Glucose 246 H 26 L 74 (60-110) mg/dL Calcium (8.5-10.1) mg/dL Iron (50-175) ug/dL TIBC (250-450) ug/dL % Saturation (20-55) % Urine Color Urine Appearance Urine pH (5.0-8.0) Ur Specific [place] (1.001-1.035) Urine Protein (NEGATIVE) mg/dL Urine Glucose (UA) (NEGATIVE) mg/dL Urine Ketones (NEGATIVE) mg/dL Urine Occult Blood (NEGATIVE) Urine Nitrite (NEGATIVE) Urine Bilirubin (NEGATIVE) Urine Urobilinogen (<2.0) EU/dL Ur Leukocyte Esterase (NEGATIVE) U Hyaline Cast (Auto) (0-2/LPF) Urine RBC (0-2/HPF) Urine WBC (0-5/HPF) Ur Epithelial Cells (NONE-FEW) Urine Bacteria (NEGATIVE) Fine Granular Casts (NEGATIVE) SARS-CoV-2 RNA (BK) (NEGATIVE) Blood Type Antibody Screen Crossmatch 06/02/20 06/02/20 06/02/20 Range/Units 05:50 05:50 08:10 WBC 15.36 H (4.0-11.0) K/uL RBC 3.84 L (4.50-5.90) M/uL Hgb 8.2 L (13.0-17.0) g/dL Hct 26.3 L (38.0-50.0) % MCV 68.5 L (80.0-98.0) fL MCH 21.4 L (27.0-32.0) pg MCHC 31.2 (31.0-37.0) g/dL RDW Std Deviation 43.3 (28.0-62.0) fl RDW Coeff of Dania 17 H (11.0-15.0) % Plt Count 387 (150-400) K/uL MPV 10.30 (7.40-12.00) fL Neut % (Auto) 78.0 (48.0-80.0) % Lymph % (Auto) 13.5 L (16.0-40.0) % [place] % (Auto) 7.4 (0.0-15.0) % Eos % (Auto) 0.7 (0.0-7.0) % Baso % (Auto) 0.4 (0.0-1.5) % Neut # (Auto) 12.0 H (1.4-5.7) K/uL Lymph # (Auto) 2.1 (0.6-2.4) K/uL [place] # (Auto) 1.1 H (0.0-0.8) K/uL Eos # (Auto) 0.1 (0.0-0.7) K/uL Baso # (Auto) 0.1 (0.0-0.1) K/uL Nucleated RBC % 0.0 /100WBC Nucleated RBCs # 0 K/uL Absolute Retic (20-80) K/uL Percent Retic (0.5-1.5) % Immature Retic Fraction % INR Sodium 143 (136-148) mmol/L Potassium 4.2 (3.5-5.1) mmol/L Chloride 111 H (98-107) mmol/L Carbon Dioxide 21.4 (21.0-32.0) mmol/L BUN 46 H (7.0-18.0) mg/dL Creatinine 3.2 H (0.8-1.3) mg/dL Est Cr Clr Drug Dosing 31.47 mL/min Estimated GFR (MDRD) 27.1 ml/min Glucose 58 L (74-106) mg/dL POC Glucose 33 L (60-110) mg/dL Calcium 8.2 L (8.5-10.1) mg/dL Iron (50-175) ug/dL TIBC (250-450) ug/dL % Saturation (20-55) % Urine Color Urine Appearance Urine pH (5.0-8.0) Ur Specific [place] (1.001-1.035) Urine Protein (NEGATIVE) mg/dL Urine Glucose (UA) (NEGATIVE) mg/dL Urine Ketones (NEGATIVE) mg/dL Urine Occult Blood (NEGATIVE) Urine Nitrite (NEGATIVE) Urine Bilirubin (NEGATIVE) Urine Urobilinogen (<2.0) EU/dL Ur Leukocyte Esterase (NEGATIVE) U Hyaline Cast (Auto) (0-2/LPF) Urine RBC (0-2/HPF) Urine WBC (0-5/HPF) Ur Epithelial Cells (NONE-FEW) Urine Bacteria (NEGATIVE) Fine Granular Casts (NEGATIVE) SARS-CoV-2 RNA (BK) (NEGATIVE) Blood Type Antibody Screen Crossmatch 06/02/20 06/02/20 06/02/20 Range/Units 09:04 10:20 11:38 WBC (4.0-11.0) K/uL RBC (4.50-5.90) M/uL Hgb (13.0-17.0) g/dL Hct (38.0-50.0) % MCV (80.0-98.0) fL MCH (27.0-32.0) pg MCHC (31.0-37.0) g/dL RDW Std Deviation (28.0-62.0) fl RDW Coeff of Dania (11.0-15.0) % Plt Count (150-400) K/uL MPV (7.40-12.00) fL Neut % (Auto) (48.0-80.0) % Lymph % (Auto) (16.0-40.0) % [place] % (Auto) (0.0-15.0) % Eos % (Auto) (0.0-7.0) % Baso % (Auto) (0.0-1.5) % Neut # (Auto) (1.4-5.7) K/uL Lymph # (Auto) (0.6-2.4) K/uL [place] # (Auto) (0.0-0.8) K/uL Eos # (Auto) (0.0-0.7) K/uL Baso # (Auto) (0.0-0.1) K/uL Nucleated RBC % /100WBC Nucleated RBCs # K/uL Absolute Retic (20-80) K/uL Percent Retic (0.5-1.5) % Immature Retic Fraction % INR Sodium (136-148) mmol/L Potassium (3.5-5.1) mmol/L Chloride (98-107) mmol/L Carbon Dioxide (21.0-32.0) mmol/L BUN (7.0-18.0) mg/dL Creatinine (0.8-1.3) mg/dL Est Cr Clr Drug Dosing mL/min Estimated GFR (MDRD) ml/min Glucose (74-106) mg/dL POC Glucose 113 H 52 L (60-110) mg/dL Calcium (8.5-10.1) mg/dL Iron (50-175) ug/dL TIBC (250-450) ug/dL % Saturation (20-55) % Urine Color Urine Appearance Urine pH (5.0-8.0) Ur Specific [place] (1.001-1.035) Urine Protein (NEGATIVE) mg/dL Urine Glucose (UA) (NEGATIVE) mg/dL Urine Ketones (NEGATIVE) mg/dL Urine Occult Blood (NEGATIVE) Urine Nitrite (NEGATIVE) Urine Bilirubin (NEGATIVE) Urine Urobilinogen (<2.0) EU/dL Ur Leukocyte Esterase (NEGATIVE) U Hyaline Cast (Auto) (0-2/LPF) Urine RBC (0-2/HPF) Urine WBC (0-5/HPF) Ur Epithelial Cells (NONE-FEW) Urine Bacteria (NEGATIVE) Fine Granular Casts (NEGATIVE) SARS-CoV-2 RNA (BK) (NEGATIVE) Blood Type O POSITIVE Antibody Screen NEGATIVE Crossmatch See Detail Peter Results Last 24 Hours: Microbiology 06/02/20 06:00 Stool Occult Blood (PETER) - Final Stool / Feces Med Orders - Current: Current Medications Amlodipine Besylate (Norvasc) 10 mg PO DAILY [facility] Last Admin: 06/02/20 09:25 Dose: 10 mg Documented by: Atorvastatin Calcium (Lipitor) 80 mg PO BEDTIME [facility] Last Admin: 06/01/20 21:29 Dose: 80 mg Documented by: Dextrose/Water (Dextrose 50% In Water) 25 ml IVPUSH ASDIRECTED PRN PRN Reason: Blood Glucose Last Admin: 06/02/20 12:10 Dose: 25 ml Documented by: Hydralazine HCl (Apresoline) 25 mg PO TID [facility] Last Admin: 06/02/20 06:31 Dose: 25 mg Documented by: Hydromorphone HCl (Dilaudid) 0.5 mg IVPUSH Q3H PRN PRN Reason: Pain Last Admin: 06/02/20 09:26 Dose: 0.5 mg Documented by: Pantoprazole Sodium 40 mg/ (Sodium Chloride) 10 mls @ 300 mls/hr IV BID [facility] Last Admin: 06/02/20 09:24 Dose: 300 mls/hr Documented by: Dextrose/Sodium Chloride (Dextrose 5%-1/2 Ns) 1,000 mls @ 100 mls/hr IV ASDIRECTED [facility] Insulin Aspart (Novolog) 0 unit SUBCUT TIDAC [facility]; Protocol Last Admin: 06/02/20 12:35 Dose: Not Given Documented by: Insulin Glargine (Lantus Solostar) 38 units SUBCUT BEDTIME [facility] Last Admin: 06/01/20 21:26 Dose: 38 units Documented by: Labetalol HCl (Normodyne) 10 mg IVPUSH Q4H PRN; Protocol PRN Reason: Tachycardia Lorazepam (Ativan) 1 mg IVPUSH Q3H PRN PRN Reason: Anxiety Metoprolol Succinate (Toprol Xl) 200 mg PO DAILY [facility] Last Admin: 06/02/20 09:25 Dose: 200 mg Documented by: Promethazine HCl (Phenergan) 12.5 mg IM Q6H PRN PRN Reason: Nausea Last Admin: 06/01/20 17:27 Dose: 12.5 mg Documented by: Sertraline HCl (Zoloft) 50 mg PO DAILY [facility] Last Admin: 06/02/20 09:26 Dose: Not Given Documented by: Sodium Chloride (Saline Flush) 10 ml FLUSH ASDIRECTED PRN PRN Reason: Keep Vein Open Last Admin: 06/01/20 10:00 Dose: 10 ml Documented by: Sodium Chloride (Saline Flush) 2.5 ml FLUSH ASDIRECTED PRN PRN Reason: Keep Vein Open Last Admin: 06/01/20 10:01 Dose: 2.5 ml Documented by: Discontinued Medications Aspirin (Halfprin) 81 mg PO DAILY MICHAEL Dextrose/Water (Dextrose 50% In Water) 25 ml IVPUSH ONETIME ONE Stop: 06/02/20 04:01 Last Admin: 06/02/20 04:09 Dose: 25 ml Documented by: Dextrose/Water (Dextrose 50% In Water) 25 ml IVPUSH ONETIME PRN PRN Reason: Hypoglycemia Last Admin: 06/02/20 08:18 Dose: 25 ml Documented by: Diphenhydramine HCl (Benadryl) 50 mg IVPUSH ONETIME ONE Stop: 06/01/20 09:27 Last Admin: 06/01/20 10:00 Dose: 50 mg Documented by: Famotidine (Pepcid) 20 mg IVPUSH ONETIME ONE Stop: 06/01/20 09:27 Last Admin: 06/01/20 10:00 Dose: 20 mg Documented by: Hydromorphone HCl (Dilaudid) 0.5 mg IVPUSH ONETIME ONE Stop: 06/01/20 17:46 Last Admin: 06/01/20 17:48 Dose: 0.5 mg Documented by: Sodium Chloride (Normal Saline) 1,000 mls @ 999 mls/hr IV .Bolus ONE Stop: 06/01/20 10:26 Last Admin: 06/01/20 10:00 Dose: 999 mls/hr Documented by: Sodium Chloride (Normal Saline) 1,000 mls @ 1,000 mls/hr IV .Bolus ONE Stop: 06/01/20 12:08 Last Admin: 06/01/20 11:18 Dose: 1,000 mls/hr Documented by: Sodium Chloride (Normal Saline) 1,000 mls @ 125 mls/hr IV CONTINUOUS ONE Stop: 06/01/20 20:51 Last Admin: 06/01/20 15:19 Dose: 125 mls/hr Documented by: Iron Sucrose 100 mg/ Sodium (Chloride) 105 mls @ 400 mls/hr IV ONETIME ONE Stop: 06/02/20 10:14 Last Admin: 06/02/20 10:50 Dose: 400 mls/hr Documented by: Insulin Human Regular (Novolin R) 10 unit IVPUSH ONETIME ONE; Protocol Stop: 06/01/20 11:04 Last Admin: 06/01/20 11:16 Dose: 10 unit Documented by: Insulin Human Regular (Novolin R) 15 unit SUBCUT ONETIME ONE; Protocol Stop: 06/01/20 11:05 Last Admin: 06/01/20 11:17 Dose: 15 units Documented by: Labetalol HCl (Normodyne) 20 mg IVPUSH ONETIME ONE; Protocol Stop: 06/01/20 11:07 Last Admin: 06/01/20 11:14 Dose: 20 mg Documented by: Lorazepam (Ativan) 1 mg IVPUSH ONETIME ONE Stop: 06/01/20 09:27 Last Admin: 06/01/20 10:00 Dose: 1 mg Documented by: Lorazepam (Ativan) 1 mg IVPUSH Q4H PRN PRN Reason: Anxiety Metoclopramide HCl (Reglan) 10 mg IVPUSH ONETIME ONE Stop: 06/01/20 09:27 Last Admin: 06/01/20 10:00 Dose: 10 mg Documented by: Metoprolol Tartrate (Lopressor) 5 mg IVPUSH ONETIME ONE Stop: 06/01/20 18:43 Last Admin: 06/01/20 18:53 Dose: 5 mg Documented by: Pantoprazole Sodium (Protonix) 40 mg PO ACBREAKFAST MICHAEL Sucralfate (Carafate) 1 gm PO QIDACANDBED MICHAEL Last Admin: 06/01/20 17:55 Dose: Not Given Documented by: - Exam Quality Assessment: No: Supplemental Oxygen General: Alert, Oriented HEENT: EOMI Neck: Supple Lungs: Clear to Auscultation, Normal Respiratory Effort Cardiovascular: Regular Rate, Regular Rhythm GI/Abdominal Exam: Soft, Non-Tender, No Organomegaly Skin: Warm Neurological: No New Focal Deficit Psy/Mental Status: Alert, Normal Affect, Normal Mood Sepsis Event Note - Evaluation Sepsis Screening Result: No Definite Risk - Focused Exam Vital Signs: Vital Signs Temp Pulse Pulse Resp BP BP Pulse Ox 06/02/20 12:00 98.0 F 84 16 180/110 H 98 06/02/20 09:25 78 119/114 H 06/02/20 08:14 98.5 F 78 18 192/114 H 98 06/02/20 06:31 180/101 H 06/02/20 05:00 97 F 98 18 180/101 H 98 - Problem List Review Problem List Initiated/Reviewed/Updated: Yes - My Orders Last 24 Hours: My Active Orders 06/01/20 12:46 Vital Signs [RC] PER UNIT ROUTINE 06/01/20 12:47 Up ad Ruth [RC] ASDIRECTED 06/01/20 12:48 Accu Check [Blood Glucose Check, Bedside] [RC] TIDMEALS 06/01/20 12:49 Promethazine [Phenergan] 12.5 mg IM Q6H PRN 06/01/20 12:53 Code Status [Resuscitation Status] Routine 06/01/20 12:54 Antiembolic Devices [RC] PER UNIT ROUTINE Sequential Compression Device [OM.PC] Routine 06/01/20 14:00 hydrALAZINE [Apresoline] 25 mg PO TID 06/01/20 14:35 CULTURE URINE [RM] Routine 06/01/20 17:00 Insulin Aspart [NovoLOG] See Protocol SUBCUT TIDAC 06/01/20 19:16 LORazepam [Ativan] 1 mg IVPUSH Q3H PRN 06/01/20 21:00 Insulin Glarg,Human.Rec.Analog [LantUS Solostar] 38 units SUBCUT BEDTIME Pantoprazole [ProTONIX IV] 40 mg Sodium Chloride 0.9% [Normal Saline] 10 ml IV BID atorvaSTATin [Lipitor] 80 mg PO BEDTIME 06/02/20 09:00 Metoprolol Succinate [Toprol XL] 200 mg PO DAILY Sertraline [Zoloft] 50 mg PO DAILY amLODIPine [Norvasc] 10 mg PO DAILY 06/02/20 10:20 PACKED CELLS [RED BLOOD CELLS LP] [BBK] Routine TYPE AND SCREEN [BBK] Stat 06/02/20 12:02 Dextrose 50% in Water 25 ml IVPUSH ASDIRECTED PRN 06/02/20 12:48 Transfuse PRBC [Transfuse Red Blood Cells] [COMM] Urgent 06/02/20 Dinner Soft Diet [DIET] 06/03/20 05:11 BMP [BASIC METABOLIC PANEL,BMP] [CHEM] AM CBC WITH AUTO DIFF [HEME] AM 06/04/20 05:11 BMP [BASIC METABOLIC PANEL,BMP] [CHEM] AM CBC WITH AUTO DIFF [HEME] AM - Plan Plan:: Assessment: 1. Hyperglycemia in a non-compliant Type I Diabetic 2. intractable Nausea and vomiting 3. Leukocytosis 4. Hyperkalemia 5. Microcytic anemia 6. Acute on chronic kidney injury 7. Hypertension Plan. Admit to observation. Full code. i/o's per routine GI: pantoprazole 40 daily DVT: SCD Telemetry COVID negative 1. Hyperglycemia w. intractable N/V: most likely gastroparesis secondary to medication adherence issues Restart LA insulin + sliding scale ; accu-checks w. meals TID+ PRN 1/2 D50 for BG <60 IV fluids maintenance Diet: soft diet Reglan+phenergan +Maintenance fluids Pain: Ativan 1 mg q 3hours 2. Leukocytosis: pending UA ; however no symptoms of dysuria 3. HTN: resistant HTN; most likely , again, due to medication non-adherence, will selectively restart medications, especially those w.o nephro site of action first secondary to elevated Cr. Monitor and treat; fluid resuscitated in ED renal arterial U/S performed in past year: no REINA Appreciated 4. Hyperkalemia: restart insulin therapy; most likely resolve once insulin restarted; recheck in AM; no CP and or palpitations appreciated; monitor 5. Anemia: heme-occult +; iron deficiency appreciated; iron sucrose x 1 given this AM Will order 2 units PRBC; transfuse 1 now ; recheck h/h post-transfusion
[2020-06-02] MEDS: atorvaSTATin 40 MG Tab PO SCH (20:29)
[2020-06-02] MEDS ORDERED: Doxazosin 4 MG Tab PO SCH (21:00)
[2020-06-02] MEDS: Insulin Glargine,Human Rec. Analog 100 Units/ML 3 ML Pen SUBCUT SCH (21:15)
[2020-06-03] MEDS: HYDROmorphone 2 MG/ML Syringe IVPUSH PRN ×2 (02:44→11:53)
[2020-06-03 06:51] LABS: CARBON DIOXIDE,CO2 22.4 mmol/L (21.0-32.0); POTASSIUM,K 4.3 mmol/L (3.5-5.1)
[2020-06-03] MEDS: hydrALAZINE 25 MG Tab PO SCH ×4 (07:12→18:23)
[2020-06-03] MEDS: Insulin Aspart 100 Units/ML 3 ML Pen SUBCUT SCH ×3 (08:11→17:39)
[2020-06-03] MEDS ORDERED: Hydrochlorothiazide 25 MG Tab PO SCH (10:15)
[2020-06-03] MEDS: amLODIPine 5 MG Tab PO SCH (11:37)
[2020-06-03] MEDS: Sertraline 50 MG Tab PO SCH (11:43)
[2020-06-03] MEDS: Metoprolol Succinate 100 MG Tab.ER PO SCH (11:52)
[2020-06-03] MEDS: Pantoprazole 40 MG in Sodium Chloride 0.9% 10 ML IV SCH (11:53)
[2020-06-03] MEDS: Labetalol 100 MG/20 ML MDV IVPUSH PRN ×2 (13:19→13:45)
[2020-06-03] MEDS ORDERED: hydrALAZINE 25 MG Tab PO SCH (14:00)
[2020-06-03] MEDS ORDERED: Labetalol 100 MG/20 ML MDV IVPUSH ONE (17:54)
[2020-06-03 19:28] VITALS: BP 165/97; PULSE 94
[2020-06-03] MEDS ORDERED: Spironolactone 25 MG Tab PO SCH (21:00)
--- NOTE | 2020-06-03 21:35 | PCM.DCSUM1 ---
Discharge Summary - Hospital Course Free Text/Narrative:: 35-year-old male admitted for hyperglycemia with intractable nausea and vomiting. Patient has PMH of diabetes, HTN, ckd, Gastroparesis. Patient presented to the ED due to abdominal pain, nausea, vomiting. Patient has a history of multiple admissions for similar complaints. Patient was treated on admission with long acting insulin, Insulin SS, IV fluids. Patients admission course was complicated due to resistant hypertension. Patient was restarted on all PO BP home Meds but required IV labetalol in addition. - Discharge Data Discharge Date: 06/03/20 Discharge Disposition: Home, Self-Care Condition: Good - Referral to Home Health Primary Care Physician: Fitz Infante MD - Discharge Plan Home Medications: Home Meds Doxazosin [Cardura] 4 mg PO BEDTIME 09/29/19 [History] Metoprolol Succinate 200 mg PO DAILY 09/29/19 [History] Torsemide 20 mg PO BID 09/29/19 [History] atorvaSTATin [Lipitor] 80 mg PO BEDTIME 09/29/19 [History] Insulin Aspart [NovoLOG] 0 unit SUBCUT .UP TO 60 UN DAILY 09/30/19 [History] Metoclopramide [Reglan] 5 mg PO TIDAC #90 tablet 10/10/19 [Rx] Pantoprazole [ProTONIX] 40 mg PO DAILY #30 tab.cr 10/10/19 [Rx] Aspirin [Adult Low Dose Aspirin EC] 81 mg PO DAILY 12/07/19 [History] Enalapril Maleate 20 mg PO DAILY 12/07/19 [History] Insulin Glarg,Human.Rec.Analog [Lantus] 38 mg SUBCUT BEDTIME 12/07/19 [History] Iron Ag,Ps/C/Fa6/B12/Zn/SA/Sto [Niferex Tablet] 150 mg PO BID 12/07/19 [History] Sertraline [Zoloft] 50 mg PO DAILY 12/07/19 [History] Spironolactone [Aldactone] 25 mg PO BID 12/07/19 [History] Sucralfate 1 gm PO QIDACANDBED 12/07/19 [History] amLODIPine Besylate [Amlodipine Besylate] 10 mg PO DAILY 12/07/19 [History] hydrALAZINE [Apresoline] 25 mg PO TID 12/07/19 [History] hydroCHLOROthiazide [Hydrochlorothiazide] 25 mg PO DAILY 12/07/19 [History] Ondansetron [Zofran ODT] 4 mg PO Q8H PRN 04/12/20 [History] Pantoprazole Sodium [Protonix] 40 mg PO DAILY 30 Days #30 suspdr.pkt 05/31/20 [Rx] oxyCODONE HCl/Acetaminophen [Percocet 5-325 mg Tablet] 1 each PO Q4H PRN 3 Days #12 tablet 05/31/20 [Rx] Patient Handouts: Hyperglycemia, Hypertension, Adult Referrals: Fitz Infante MD [Primary Care Provider] - - Discharge Summary/Plan Comment DC Time >30 min.: No - General Info Date of Service: 06/03/20 Subjective Update: Patient states that he feels fine and is requesting to go home. Denies chest pain, SOB, headache, blurry vision, dizziness, nausea, vomiting, fever, chills. - Review of Systems General: Denies: Fever, Weakness Pulmonary: Denies: Shortness of Breath, Pleuritic Chest Pain Cardiovascular: Denies: Chest Pain, Palpitations, Dyspnea on Exertion Gastrointestinal: Denies: Abdominal Pain, Decreased Appetite, Nausea, Vomiting Musculoskeletal: Denies: Back Pain Neurological: Denies: Confusion, Dizziness, Headache, Numbness - Patient Data Vitals - Most Recent: Last Vital Signs Temp 98.6 F 06/02/20 22:52 Pulse 94 06/03/20 19:18 Resp 16 06/03/20 19:18 BP 165/97 H 06/03/20 19:18 Pulse Ox 98 06/03/20 19:18 Weight - Most Recent: 180 lb I&O - Last 24 hours: Intake & Output 06/03/20 06/03/20 06/03/20 06:59 14:59 22:59 Intake Total 850 1230 Output Total 1000 2050 Balance -150 -820 Lab Results - Last 24 hrs: Laboratory Results - last 24 hr 06/03/20 06/03/20 06/03/20 Range/Units 05:50 05:50 07:19 WBC 9.05 (4.0-11.0) K/uL RBC 3.89 L (4.50-5.90) M/uL Hgb 8.7 L (13.0-17.0) g/dL Hct 27.5 L (38.0-50.0) % MCV 70.7 L (80.0-98.0) fL MCH 22.4 L (27.0-32.0) pg MCHC 31.6 (31.0-37.0) g/dL RDW Std Deviation 47.6 (28.0-62.0) fl RDW Coeff of Dania 18 H (11.0-15.0) % Plt Count 328 (150-400) K/uL MPV 9.80 (7.40-12.00) fL Neut % (Auto) 64.3 (48.0-80.0) % Lymph % (Auto) 25.1 (16.0-40.0) % [place] % (Auto) 7.4 (0.0-15.0) % Eos % (Auto) 2.8 (0.0-7.0) % Baso % (Auto) 0.4 (0.0-1.5) % Neut # (Auto) 5.8 H (1.4-5.7) K/uL Lymph # (Auto) 2.3 (0.6-2.4) K/uL [place] # (Auto) 0.7 (0.0-0.8) K/uL Eos # (Auto) 0.3 (0.0-0.7) K/uL Baso # (Auto) 0.0 (0.0-0.1) K/uL Nucleated RBC % 0.0 /100WBC Nucleated RBCs # 0 K/uL Sodium 141 (136-148) mmol/L Potassium 4.3 (3.5-5.1) mmol/L Chloride 110 H (98-107) mmol/L Carbon Dioxide 22.4 (21.0-32.0) mmol/L BUN 30 H (7.0-18.0) mg/dL Creatinine 2.8 H (0.8-1.3) mg/dL Est Cr Clr Drug Dosing 35.96 mL/min Estimated GFR (MDRD) 31.6 ml/min Glucose 118 H (74-106) mg/dL POC Glucose 107 (60-110) mg/dL Calcium 7.2 L (8.5-10.1) mg/dL 06/03/20 06/03/20 Range/Units 13:12 17:37 WBC (4.0-11.0) K/uL RBC (4.50-5.90) M/uL Hgb (13.0-17.0) g/dL Hct (38.0-50.0) % MCV (80.0-98.0) fL MCH (27.0-32.0) pg MCHC (31.0-37.0) g/dL RDW Std Deviation (28.0-62.0) fl RDW Coeff of Dania (11.0-15.0) % Plt Count (150-400) K/uL MPV (7.40-12.00) fL Neut % (Auto) (48.0-80.0) % Lymph % (Auto) (16.0-40.0) % [place] % (Auto) (0.0-15.0) % Eos % (Auto) (0.0-7.0) % Baso % (Auto) (0.0-1.5) % Neut # (Auto) (1.4-5.7) K/uL Lymph # (Auto) (0.6-2.4) K/uL [place] # (Auto) (0.0-0.8) K/uL Eos # (Auto) (0.0-0.7) K/uL Baso # (Auto) (0.0-0.1) K/uL Nucleated RBC % /100WBC Nucleated RBCs # K/uL Sodium (136-148) mmol/L Potassium (3.5-5.1) mmol/L Chloride (98-107) mmol/L Carbon Dioxide (21.0-32.0) mmol/L BUN (7.0-18.0) mg/dL Creatinine (0.8-1.3) mg/dL Est Cr Clr Drug Dosing mL/min Estimated GFR (MDRD) ml/min Glucose (74-106) mg/dL POC Glucose 344 H 107 (60-110) mg/dL Calcium (8.5-10.1) mg/dL FRANTZ Results - Last 24 hrs: Microbiology 06/01/20 14:35 Urine Culture - Final Urine, Bladder MIXED VALORIE 1,000-10,000 CFU/ML Med Orders - Current: Current Medications Discontinued Medications Amlodipine Besylate (Norvasc) 10 mg PO DAILY [facility] Last Admin: 06/03/20 11:37 Dose: 10 mg Documented by: Aspirin (Halfprin) 81 mg PO DAILY [facility] Atorvastatin Calcium (Lipitor) 80 mg PO BEDTIME [facility] Last Admin: 06/02/20 20:29 Dose: 80 mg Documented by: Dextrose/Water (Dextrose 50% In Water) 25 ml IVPUSH ONETIME ONE Stop: 06/02/20 04:01 Last Admin: 06/02/20 04:09 Dose: 25 ml Documented by: Dextrose/Water (Dextrose 50% In Water) 25 ml IVPUSH ONETIME PRN PRN Reason: Hypoglycemia Last Admin: 06/02/20 08:18 Dose: 25 ml Documented by: Dextrose/Water (Dextrose 50% In Water) 25 ml IVPUSH ASDIRECTED PRN PRN Reason: Blood Glucose Last Admin: 06/02/20 17:03 Dose: 25 ml Documented by: Dextrose/Water (Dextrose 50% In Water) 50 ml IVPUSH ONETIME ONE Stop: 06/02/20 18:24 Last Admin: 06/02/20 18:36 Dose: 50 ml Documented by: Diphenhydramine HCl (Benadryl) 50 mg IVPUSH ONETIME ONE Stop: 06/01/20 09:27 Last Admin: 06/01/20 10:00 Dose: 50 mg Documented by: Doxazosin Mesylate (Cardura) 4 mg PO BEDTIME [facility] Last Admin: 06/02/20 20:32 Dose: 4 mg Documented by: Enalapril Maleate (Vasotec) 20 mg PO DAILY [facility] Last Admin: 06/03/20 11:41 Dose: 20 mg Documented by: Famotidine (Pepcid) 20 mg IVPUSH ONETIME ONE Stop: 06/01/20 09:27 Last Admin: 06/01/20 10:00 Dose: 20 mg Documented by: Hydralazine HCl (Apresoline) 25 mg PO TID [facility] Last Admin: 06/03/20 07:12 Dose: 25 mg Documented by: Hydralazine HCl (Apresoline) 50 mg PO TID [facility] Hydralazine HCl (Apresoline) 50 mg PO TID [facility] Last Admin: 06/03/20 18:23 Dose: 50 mg Documented by: Hydrochlorothiazide (Hydrochlorothiazide) 25 mg PO DAILY [facility] Last Admin: 06/03/20 11:42 Dose: 25 mg Documented by: Hydromorphone HCl (Dilaudid) 0.5 mg IVPUSH ONETIME ONE Stop: 06/01/20 17:46 Last Admin: 06/01/20 17:48 Dose: 0.5 mg Documented by: Hydromorphone HCl (Dilaudid) 0.5 mg IVPUSH Q3H PRN PRN Reason: Pain Last Admin: 06/03/20 11:53 Dose: 0.5 mg Documented by: Sodium Chloride (Normal Saline) 1,000 mls @ 999 mls/hr IV .Bolus ONE Stop: 06/01/20 10:26 Last Admin: 06/01/20 10:00 Dose: 999 mls/hr Documented by: Sodium Chloride (Normal Saline) 1,000 mls @ 1,000 mls/hr IV .Bolus ONE Stop: 06/01/20 12:08 Last Admin: 06/01/20 11:18 Dose: 1,000 mls/hr Documented by: Sodium Chloride (Normal Saline) 1,000 mls @ 125 mls/hr IV CONTINUOUS ONE Stop: 06/01/20 20:51 Last Admin: 06/01/20 15:19 Dose: 125 mls/hr Documented by: Pantoprazole Sodium 40 mg/ (Sodium Chloride) 10 mls @ 300 mls/hr IV BID [facility] Last Admin: 06/03/20 11:53 Dose: 300 mls/hr Documented by: Iron Sucrose 100 mg/ Sodium (Chloride) 105 mls @ 400 mls/hr IV ONETIME ONE Stop: 06/02/20 10:14 Last Admin: 06/02/20 10:50 Dose: 400 mls/hr Documented by: Dextrose/Sodium Chloride (Dextrose 5%-1/2 Ns) 1,000 mls @ 100 mls/hr IV ASDIRECTED [facility] Insulin Aspart (Novolog) 0 unit SUBCUT TIDAC [facility]HA[facility]; Protocol Last Admin: 06/03/20 17:39 Dose: Not Given Documented by: Insulin Glargine (Lantus Solostar) 38 units SUBCUT BEDTIME [facility] Last Admin: 06/02/20 21:15 Dose: Not Given Documented by: Insulin Human Regular (Novolin R) 10 unit IVPUSH ONETIME ONE; Protocol Stop: 06/01/20 11:04 Last Admin: 06/01/20 11:16 Dose: 10 unit Documented by: Insulin Human Regular (Novolin R) 15 unit SUBCUT ONETIME ONE; Protocol Stop: 06/01/20 11:05 Last Admin: 06/01/20 11:17 Dose: 15 units Documented by: Labetalol HCl (Normodyne) 20 mg IVPUSH ONETIME ONE; Protocol Stop: 06/01/20 11:07 Last Admin: 06/01/20 11:14 Dose: 20 mg Documented by: Labetalol HCl (Normodyne) 10 mg IVPUSH Q4H PRN; Protocol PRN Reason: Tachycardia Last Admin: 06/03/20 13:45 Dose: 10 mg Documented by: Labetalol HCl (Normodyne) 20 mg IVPUSH ONETIME ONE; Protocol Stop: 06/03/20 17:55 Last Admin: 06/03/20 18:15 Dose: 20 mg Documented by: Lorazepam (Ativan) 1 mg IVPUSH ONETIME ONE Stop: 06/01/20 09:27 Last Admin: 06/01/20 10:00 Dose: 1 mg Documented by: Lorazepam (Ativan) 1 mg IVPUSH Q4H PRN PRN Reason: Anxiety Lorazepam (Ativan) 1 mg IVPUSH Q3H PRN PRN Reason: Anxiety Metoclopramide HCl (Reglan) 10 mg IVPUSH ONETIME ONE Stop: 06/01/20 09:27 Last Admin: 06/01/20 10:00 Dose: 10 mg Documented by: Metoprolol Succinate (Toprol Xl) 200 mg PO DAILY [facility] Last Admin: 06/03/20 11:52 Dose: 200 mg Documented by: Metoprolol Tartrate (Lopressor) 5 mg IVPUSH ONETIME ONE Stop: 06/01/20 18:43 Last Admin: 06/01/20 18:53 Dose: 5 mg Documented by: Pantoprazole Sodium (Protonix) 40 mg PO ACBREAKFAST [facility] Promethazine HCl (Phenergan) 12.5 mg IM Q6H PRN PRN Reason: Nausea Last Admin: 06/01/20 17:27 Dose: 12.5 mg Documented by: Sertraline HCl (Zoloft) 50 mg PO DAILY [facility] Last Admin: 06/03/20 11:43 Dose: Not Given Documented by: Sodium Chloride (Saline Flush) 10 ml FLUSH ASDIRECTED PRN PRN Reason: Keep Vein Open Last Admin: 06/01/20 10:00 Dose: 10 ml Documented by: Sodium Chloride (Saline Flush) 2.5 ml FLUSH ASDIRECTED PRN PRN Reason: Keep Vein Open Last Admin: 06/01/20 10:01 Dose: 2.5 ml Documented by: Spironolactone (Aldactone) 25 mg PO BID [facility] Sucralfate (Carafate) 1 gm PO QIDACANDBED [facility] Last Admin: 06/01/20 17:55 Dose: Not Given Documented by: - Exam General: Reports: Alert, Oriented Lungs: Reports: Clear to Auscultation, Normal Respiratory Effort Cardiovascular: Reports: Regular Rate, Regular Rhythm GI/Abdominal Exam: Soft, Non-Tender, No Distention Extremities: No Pedal Edema
== END 2020-06-03 20:00 | disposition home or self-care (01) ==
LOC: MW.ED 09:14 → MW.MS 11:07
PROVIDERS: ADMIT Student in an Organized Health Care Education/Training Program; ATTEND Student in an Organized Health Care Education/Training Program
DX: E10.65 Type 1 diabetes mellitus with hyperglycemia (principal); R11.2 Nausea with vomiting, unspecified; E10.21 Type 1 diabetes mellitus with diabetic nephropathy; E87.5 Hyperkalemia; D72.829 Elevated white blood cell count, unspecified; N17.9 Acute kidney failure, unspecified; D50.9 Iron deficiency anemia, unspecified; E10.42 Type 1 diabetes mellitus with diabetic polyneuropathy; E10.43 Type 1 diabetes mellitus with diabetic autonomic (poly)neuropathy; K31.84 Gastroparesis; E10.22 Type 1 diabetes mellitus with diabetic chronic kidney disease; I12.9 Hypertensive chronic kidney disease with stage 1 through stage 4 chronic kidney disease, or unspecified chronic kidney disease; N18.9 Chronic kidney disease, unspecified; F41.9 Anxiety disorder, unspecified; Z20.828 Contact with and (suspected) exposure to other viral communicable diseases; Z88.0 Allergy status to penicillin; Z88.8 Allergy status to other drugs, medicaments and biological substances; Z79.82 Long term (current) use of aspirin; Z79.899 Other long term (current) drug therapy; Z91.14 Patient's other noncompliance with medication regimen; Z91.013 Allergy to seafood; Z91.041 Radiographic dye allergy status
CPT/HCPCS: 36415; 80048; 80053; 81001; 82272; 82962; 83550; 85014; 85018; 85025; 85045; 85610; 87086; 96361; 96372; 96374; 96375; 96376; 99284; A9270; C9113; G0378; J1170; J1200; J1756; J1815; J2060; J2550; J2765; J3490; J7030; J7050; P9016; U0002; 36430; 86850; 86900; 86901; 86920; 86921; 86922

== ENCOUNTER 2020-07-11 08:44 | Inpatient (IN) | payer MEDICARE, MEDICAID ==
[2020-07-11] MEDS ORDERED: Sodium Chloride 0.9% 10 ML Syringe FLUSH PRN (08:48)
[2020-07-11] MEDS ORDERED: Sodium Chloride 0.9% 10 ML SDV IV STA (08:48)
[2020-07-11] MEDS ORDERED: Haloperidol Lactate 5 MG/ML SDV IM ONE (08:49)
[2020-07-11] MEDS ORDERED: diphenhydrAMINE 50 MG/ML SDV IVPUSH ONE (08:51)
[2020-07-11] MEDS ORDERED: Sodium Chloride 0.9% 1,000 ML IV ONE ×2 (08:55→11:37)
[2020-07-11] MEDS: Sodium Chloride 0.9% 2.5 ML Syringe FLUSH PRN (09:01)
[2020-07-11 09:16] LABS: CARBON DIOXIDE,CO2 20.3 mmol/L (21.0-32.0); POTASSIUM,K 4.5 mmol/L (3.5-5.1)
--- NOTE | 2020-07-11 09:36 | EDM.PDOC ---
ED HPI GENERAL MEDICAL PROBLEM - General Chief Complaint: Gastrointestinal Problem Stated Complaint: ABDOMINAL PAIN Time Seen by Provider: 07/11/20 08:47 Source of Information: Reports: Patient, EMS History Limitations: Reports: Uncooperative - History of Present Illness INITIAL COMMENTS - FREE TEXT/NARRATIVE: Patient is a 35-year-old male who presents today for vomiting abdominal pain. Patient is well-known to the ED in case he has gastroparesis. Patient states he woke up today the vomiting tends nominal pain and also states that he was coughing up blood patient was noted to have some coffee-ground emesis around his mouth. Patient denies any chest pain fever chills alcohol use with points. Patient also has not taken his medication the past few days as well. Abdominal Pain Pain Score (Numeric/FACES): 10 - Related Data Allergies Allergy/AdvReac Type Severity Reaction Status Date / Time shrimp Allergy Severe Swelling Verified 07/11/20 08:50 iodine Allergy Unknown Anaphylactic Verified 07/11/20 08:50 Shock Penicillins Allergy Unknown Anaphylactic Verified 07/11/20 08:50 Shock shellfish derived Allergy Anaphylactic Verified 07/11/20 08:50 Shock gluten Allergy Severe Muscle Uncoded 07/11/20 08:50 Aches Home Meds: Home Meds Doxazosin [Cardura] 8 mg PO BEDTIME 09/29/19 [History] Metoprolol Succinate 200 mg PO DAILY 09/29/19 [History] Torsemide 20 mg PO BID 09/29/19 [History] atorvaSTATin [Lipitor] 80 mg PO BEDTIME 09/29/19 [History] Insulin Aspart [NovoLOG] 0 unit SUBCUT .UP TO 60 UN DAILY 09/30/19 [History] Metoclopramide [Reglan] 5 mg PO TIDAC #90 tablet 10/10/19 [Rx] Aspirin [Adult Low Dose Aspirin EC] 81 mg PO DAILY 12/07/19 [History] Enalapril Maleate 20 mg PO DAILY 12/07/19 [History] Insulin Glarg,Human.Rec.Analog [Lantus] 38 mg SUBCUT BEDTIME 12/07/19 [History] Iron Ag,Ps/C/Fa6/B12/Zn/SA/Sto [Niferex Tablet] 150 mg PO BID 12/07/19 [History] Sertraline [Zoloft] 50 mg PO DAILY 12/07/19 [History] Spironolactone [Aldactone] 25 mg PO BID 12/07/19 [History] Sucralfate 1 gm PO QIDACANDBED 12/07/19 [History] amLODIPine Besylate [Amlodipine Besylate] 10 mg PO DAILY 12/07/19 [History] hydrALAZINE [Apresoline] 25 mg PO TID 12/07/19 [History] hydroCHLOROthiazide [Hydrochlorothiazide] 25 mg PO DAILY 12/07/19 [History] Ondansetron [Zofran ODT] 4 mg PO Q8H PRN 04/12/20 [History] Pantoprazole Sodium [Protonix] 40 mg PO DAILY 30 Days #30 suspdr.pkt 05/31/20 [Rx] Furosemide 40 mg PO BID 07/11/20 [History] Past Medical History - Past Health History Medical/Surgical History: Denies Medical/Surgical History HEENT History: Reports: Impaired Vision Other HEENT History: blind right eye Cardiovascular History: Reports: Hypertension Respiratory History: Reports: None Gastrointestinal History: Reports: Gastritis, GERD, Hiatal Hernia, Other (See Below) Other Gastrointestinal History: h/o gastric ulcers, h/o hiatal hernia; gastroparesis Genitourinary History: Reports: Chronic Renal Insuffiency, Diabetic Nephropathy Musculoskeletal History: Reports: Amputation Other Musculoskeletal History: RLE Neurological History: Reports: Neuropathy, Peripheral Other Neuro History: stroke Psychiatric History: Reports: Anxiety Endocrine/Metabolic History: Reports: Diabetes, Type I Other Endocrine/Metabolic History: brittle diabetic. 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 - Past Surgical History Head Surgeries/Procedures: Reports: None HEENT Surgical History: Reports: None Respiratory Surgical History: Reports: None GI Surgical History: Reports: None Male Surgical History: Reports: None Endocrine Surgical History: Reports: None Oncologic Surgical History: Reports: None Dermatological Surgical History: Reports: None Social & Family History - Family History Family Medical History: Noncontributory Cardiac: Reports: High Cholesterol, Hypertension OBGYN: Reports: Neurological: Reports: None Psychiatric: Reports: Anxiety - Tobacco Use Tobacco Use Status *Q: Unknown Ever Used Tobacco - Caffeine Use Caffeine Use: Reports: None Other Caffeine Use: daily Caffeine Use Comment: patient is uncooperated - Living Situation & Occupation Living situation: Reports: Single Occupation: Employed (Currently unemployed.) ED ROS GENERAL - Review of Systems Review Of Systems: Comprehensive ROS is negative, except as noted in HPI. Constitutional: Reports: Diaphoresis, Decreased Appetite HEENT: Reports: No Symptoms Respiratory: Reports: No Symptoms Cardiovascular: Reports: No Symptoms GI/Abdominal: Reports: Abdominal Pain, Hematemesis : Reports: No Symptoms Musculoskeletal: Reports: No Symptoms Skin: Reports: No Symptoms ED EXAM, GENERAL - Physical Exam Exam: See Below Exam Limited By: Uncooperative General Appearance: Alert, Moderate Distress Respiratory/Chest: No Respiratory Distress Cardiovascular: Regular Rate, Rhythm GI/Abdominal: Soft, Non-Tender, No Organomegaly Neurological: Alert, Oriented, Normal Cognition, Normal Gait #1 Interpretation EKG Date: 07/11/20 Time: 12:24 Rhythm: Other (Sinys Tachy) ST-T: Normal Course - Vital Signs Last Recorded V/S: Last Vital Signs Temp 97.6 F 07/11/20 08:51 Pulse 106 H 07/11/20 18:32 Resp 20 07/11/20 18:32 BP 149/88 H 07/11/20 18:32 Pulse Ox 97 07/11/20 18:32 - Orders/Labs/Meds Orders: Active Orders 24 hr Category Date Time Status Sodium Chloride 0.9% [Saline Flush] Med 07/11/20 08:48 Active 10 ml FLUSH ASDIRECTED PRN Sodium Chloride 0.9% [Saline Flush] Med 07/11/20 08:48 Active 2.5 ml FLUSH ASDIRECTED PRN Saline Lock Insert [OM.PC] Stat Oth 07/11/20 08:48 Ordered Medication Orders Albuterol/Ipratropium (Duoneb 3.0-0.5 Mg/3 Ml) 3 ml NEB Q4HRRT PRN PRN Reason: Shortness Of Breath/wheezing Amlodipine Besylate (Norvasc) 10 mg PO DAILY MICHAEL Dextrose/Water (Dextrose 50% In Water) 50 ml IV ASDIRECTED PRN PRN Reason: Hypoglycemia Doxazosin Mesylate (Cardura) 8 mg PO BEDTIME MICHAEL Glucagon (Glucagen) 1 mg IM ASDIRECTED PRN PRN Reason: Hypoglycemia Hydralazine HCl (Apresoline) 25 mg PO TID MICHAEL Hydromorphone HCl (Dilaudid) 1 mg IVPUSH Q4H PRN PRN Reason: Pain (severe 7-10) Lactated Ringer's (Ringers, Lactated) 1,000 mls @ 125 mls/hr IV ASDIRECTED MICHAEL Last Admin: 07/11/20 14:02 Dose: 125 mls/hr Documented by: [email or web address] Pantoprazole Sodium 40 mg/ (Sodium Chloride) 10 mls @ 300 mls/hr IV BID MICHAEL Nitroglycerin/Dextrose (Nitroglycerin 25 Mg/D5w 250 Ml) 25 mg in 250 mls @ 3 mls/hr IV TITRATE MICHAEL; Protocol Last Admin: 07/11/20 16:18 Dose: 5 mcg/min, 3 mls/hr Documented by: [email or web address] Insulin Aspart (Novolog) 0 unit SUBCUT Q6H MICHAEL; Protocol Last Admin: 07/11/20 16:09 Dose: 15 units Documented by: MURDNIC Insulin Glargine (Lantus Solostar) 20 units SUBCUT BEDTIME MICHAEL Labetalol HCl (Normodyne) 20 mg IVPUSH Q6H PRN; Protocol PRN Reason: Hypertension Metoprolol Succinate (Toprol Xl) 200 mg PO DAILY MICHAEL Promethazine HCl (Phenergan) 12.5 mg IM Q4H PRN PRN Reason: Nausea/Vomiting Sodium Chloride (Saline Flush) 10 ml FLUSH ASDIRECTED PRN PRN Reason: Keep Vein Open Last Admin: 07/11/20 09:01 Dose: 10 ml Documented by: [email or web address] Sodium Chloride (Saline Flush) 2.5 ml FLUSH ASDIRECTED PRN PRN Reason: Keep Vein Open Last Admin: 07/11/20 09:01 Dose: 2.5 ml Documented by: [email or web address] Labs: Laboratory Tests 07/11/20 07/11/20 Range/Units 08:40 08:40 WBC 11.09 H (4.0-11.0) K/uL RBC 4.54 (4.50-5.90) M/uL Hgb 9.8 L (13.0-17.0) g/dL Hct 31.0 L (38.0-50.0) % MCV 68.3 L (80.0-98.0) fL MCH 21.6 L (27.0-32.0) pg MCHC 31.6 (31.0-37.0) g/dL RDW Std Deviation 43.2 (28.0-62.0) fl RDW Coeff of Dania 17 H (11.0-15.0) % Plt Count 335 (150-400) K/uL MPV 10.20 (7.40-12.00) fL Neut % (Auto) 73.0 (48.0-80.0) % Lymph % (Auto) 11.0 L (16.0-40.0) % [place] % (Auto) 13.9 (0.0-15.0) % Eos % (Auto) 1.6 (0.0-7.0) % Baso % (Auto) 0.5 (0.0-1.5) % Neut # (Auto) 8.1 H (1.4-5.7) K/uL Lymph # (Auto) 1.2 (0.6-2.4) K/uL [place] # (Auto) 1.5 H (0.0-0.8) K/uL Eos # (Auto) 0.2 (0.0-0.7) K/uL Baso # (Auto) 0.1 (0.0-0.1) K/uL Nucleated RBC % 0.0 /100WBC Nucleated RBCs # 0 K/uL Sodium 141 (136-148) mmol/L Potassium 4.5 (3.5-5.1) mmol/L Chloride 107 (98-107) mmol/L Carbon Dioxide 20.3 L (21.0-32.0) mmol/L BUN 59 H (7.0-18.0) mg/dL Creatinine 4.2 H (0.8-1.3) mg/dL Est Cr Clr Drug Dosing 25.44 mL/min Estimated GFR (MDRD) 19.8 ml/min Glucose 227 H (74-106) mg/dL Calcium 9.0 (8.5-10.1) mg/dL Phosphorus 3.8 (2.6-4.7) mg/dL Magnesium 2.0 (1.8-2.4) mg/dL Total Bilirubin 0.2 (0.2-1.0) mg/dL AST 24 (15-37) IU/L ALT 22 (14-63) IU/L Alkaline Phosphatase 100 (46-116) U/L Total Protein 6.7 (6.4-8.2) g/dL Albumin 2.8 L (3.4-5.0) g/dL Globulin 3.9 (2.6-4.0) g/dL Albumin/Globulin Ratio 0.7 L (0.9-1.6) Lipase 39 L (73-393) U/L Meds: Medications Generic Name Dose Route Start Last Admin Trade Name Freq PRN Reason Stop Dose Admin Albuterol/Ipratropium 3 ml 07/11/20 13:11 Duoneb 3.0-0.5 Mg/3 Ml NEB Q4HRRT PRN Shortness Of Breath/wheezing Amlodipine Besylate 10 mg 07/12/20 09:00 Norvasc PO DAILY MICHAEL Dextrose/Water 50 ml 07/11/20 13:17 Dextrose 50% In Water IV ASDIRECTED PRN Hypoglycemia Doxazosin Mesylate 8 mg 07/11/20 21:00 Cardura PO BEDTIME MICHAEL Glucagon 1 mg 07/11/20 13:17 Glucagen IM ASDIRECTED PRN Hypoglycemia Hydralazine HCl 25 mg 07/12/20 09:00 Apresoline PO TID MICHAEL Hydromorphone HCl 1 mg 07/11/20 15:23 Dilaudid IVPUSH Q4H PRN Pain (severe 7-10) Lactated Ringer's 1,000 mls @ 125 mls/hr 07/11/20 13:15 07/11/20 14:02 Ringers, Lactated IV 125 mls/hr ASDIRECTED MICHAEL Administration Pantoprazole Sodium 40 mg/ 10 mls @ 300 mls/hr 07/11/20 21:00 Sodium Chloride IV BID MICHAEL Nitroglycerin/Dextrose 25 mg in 250 mls @ 3 mls/hr 07/11/20 16:15 07/11/20 16:18 Nitroglycerin 25 Mg/D5w 250 Ml IV 5 mcg/min TITRATE MICHAEL 3 mls/hr Administration Protocol 5 MCG/MIN Insulin Aspart 0 unit 07/11/20 13:30 07/11/20 16:09 Novolog SUBCUT 15 units Q6H MICHAEL Administration Protocol Insulin Glargine 20 units 07/11/20 21:00 Lantus Solostar SUBCUT BEDTIME MICHAEL Labetalol HCl 20 mg 07/11/20 13:11 Normodyne IVPUSH Q6H PRN Hypertension Protocol Metoprolol Succinate 200 mg 07/12/20 09:00 Toprol Xl PO DAILY MICHAEL Promethazine HCl 12.5 mg 07/11/20 13:11 Phenergan IM Q4H PRN Nausea/Vomiting Sodium Chloride 10 ml 07/11/20 08:48 07/11/20 09:01 Saline Flush FLUSH 10 ml ASDIRECTED PRN Administration Keep Vein Open Sodium Chloride 2.5 ml 07/11/20 08:48 07/11/20 09:01 Saline Flush FLUSH 2.5 ml ASDIRECTED PRN Administration Keep Vein Open Discontinued Medications Generic Name Dose Route Start Last Admin Trade Name Freq PRN Reason Stop Dose Admin Amlodipine Besylate 10 mg 07/11/20 10:45 07/11/20 10:58 Norvasc PO 07/11/20 10:46 10 mg ONETIME ONE Administration Dextrose/Water 50 ml 07/11/20 14:41 Dextrose 50% In Water IV ASDIRECTED PRN Hypoglycemia Dextrose/Water 50 ml 07/11/20 19:21 Dextrose 50% In Water IVPUSH 07/11/20 19:22 ONETIME ONE Diphenhydramine HCl 25 mg 07/11/20 08:51 07/11/20 09:01 Benadryl IVPUSH 07/11/20 08:52 25 mg ONETIME ONE Administration Glucagon 1 mg 07/11/20 14:41 Glucagen IM ASDIRECTED PRN Hypoglycemia Haloperidol Lactate 5 mg 07/11/20 08:49 07/11/20 09:00 Haldol IM 07/11/20 08:50 5 mg ONETIME ONE Administration Hydralazine HCl 10 mg 07/11/20 09:40 07/11/20 10:04 Apresoline IVPUSH 07/11/20 09:41 10 mg ONETIME ONE Administration Hydralazine HCl 25 mg 07/11/20 22:00 Apresoline PO TID [facility] Hydralazine HCl 25 mg 07/11/20 15:18 07/11/20 16:20 Apresoline PO Not Given TID MICHAEL Hydromorphone HCl 1 mg 07/11/20 10:45 07/11/20 10:58 Dilaudid IVPUSH 07/11/20 10:46 1 mg ONETIME ONE Administration Hydromorphone HCl 1 mg 07/11/20 13:11 Dilaudid IVPUSH Q4H PRN Pain (severe 7-10) Hydromorphone HCl 1 mg 07/11/20 15:56 07/11/20 16:10 Dilaudid IVPUSH 07/11/20 15:57 1 mg ONETIME ONE Administration Sodium Chloride 1,000 mls @ 999 mls/hr 07/11/20 08:55 07/11/20 09:00 Normal Saline IV 07/11/20 09:55 999 mls/hr .Bolus ONE Administration Sodium Chloride 1,000 mls @ 999 mls/hr 07/11/20 11:37 07/11/20 11:49 Normal Saline IV 07/11/20 12:37 999 mls/hr .BOLUS ONE Administration Nitroglycerin/Dextrose Confirm 07/11/20 16:11 07/11/20 16:19 Nitroglycerin 25 Mg/D5w 250 Ml Administered 07/11/20 16:12 Not Given Dose 25 mg in 250 mls @ as directed .ROUTE .STK-MED ONE Insulin Human Regular 15 unit 07/11/20 13:50 07/11/20 14:00 Novolin R SUBCUT 07/11/20 13:51 15 units ONETIME ONE Administration Protocol Insulin Human Regular 10 unit 07/11/20 14:42 07/11/20 14:57 Novolin R SUBCUT 07/11/20 14:43 10 units ONETIME ONE Administration Protocol Labetalol HCl 20 mg 07/11/20 11:54 07/11/20 12:33 Normodyne IVPUSH 07/11/20 11:55 20 mg ONETIME ONE Administration Protocol Labetalol HCl 20 mg 07/11/20 13:43 07/11/20 14:02 Normodyne IVPUSH 07/11/20 13:44 20 mg ONETIME ONE Administration Protocol Labetalol HCl 40 mg 07/11/20 15:47 07/11/20 16:11 Normodyne IVPUSH 07/11/20 15:48 Not Given ONETIME ONE Protocol Departure - Departure Time of Disposition: 11:51 Disposition: Admitted As Inpatient 67 Clinical Impression: OTILIA (acute kidney injury), Gastroparesis, Hypertensive urgency - Discharge Information *PRESCRIPTION DRUG MONITORING PROGRAM REVIEWED*: Not Applicable *COPY OF PRESCRIPTION DRUG MONITORING REPORT IN PATIENT IVELISSE: Not Applicable Critical Care Note - Critical Care Note Total Time (mins): 65 Comments: Critical Care Procedure Note Authorized and Performed by: Dr. Spencer Total critical care time: Approximately Due to a high probability of clinically significant, life threatening deterioration, the patient required my highest level of preparedness to intervene emergently and I personally spent this critical care time directly and personally managing the patient. This critical care time included obtaining a history; examining the patient; pulse oximetry; ordering and review of studies; arranging urgent treatment with development of a management plan; evaluation of patient's response to treatment; frequent reassessment; and, discussions with other providers. This critical care time was performed to assess and manage the high probability of imminent, life-threatening deterioration that could result in multi-organ failure. It was exclusive of separately billable procedures and treating other patients and teaching time. Patient is elevated blood pressure but is not symptomatic we will start on labetalol IV push and will be admitted to the hospital. time 1606 Blood pressure insulin subcu. remains high we will start a nitro drip. PatientSugar also elevated given 20 units we will redraw ABG and labs to make sure patient not in DKA. Sepsis Event Note (ED) - Evaluation Sepsis Screening Result: Possible Sepsis Risk - Focused Exam Vital Signs: Vital Signs Temp Pulse Resp BP BP Pulse Ox 07/11/20 11:32 124 H 22 H 199/108 H 97 07/11/20 11:01 122 H 20 215/111 H 98 07/11/20 10:58 215/111 H 07/11/20 10:47 112 H 209/107 H 97 07/11/20 10:17 120 H 214/115 H 97 07/11/20 09:32 118 H 25 H 193/108 H 95 07/11/20 09:17 120 H 24 H 186/112 H 95 07/11/20 09:02 125 H 30 H 211/110 H 96 07/11/20 08:51 97.6 F 137 H 28 H 221/124 H 97 - My Orders Last 24 Hours: My Active Orders 07/11/20 08:48 Sodium Chloride 0.9% [Saline Flush] 10 ml FLUSH ASDIRECTED PRN Sodium Chloride 0.9% [Saline Flush] 2.5 ml FLUSH ASDIRECTED PRN Saline Lock Insert [OM.PC] Stat - Assessment/Plan Admission H&P: Please use this note as an admission H&P Last 24 Hours: My Active Orders 07/11/20 08:48 Sodium Chloride 0.9% [Saline Flush] 10 ml FLUSH ASDIRECTED PRN Sodium Chloride 0.9% [Saline Flush] 2.5 ml FLUSH ASDIRECTED PRN Saline Lock Insert [OM.PC] Stat Plan: Humble is a 35-year-old male presents today for vomiting and has some coffee- ground emesis around mouth. Patient seen to have this before in the past hemoglobin is stable. Will obtain labs x-ray IV fluids and reassess. Blood pressure and heart rate still remains elevated will give a IV push labetalol patient will be admitted to the hospital for further care. Blood pressure improved and Did not require nitro drip. Patient also had a drop in his FSG. Patient did receive subcu insulin but is unclear if patient took insulin himself. Will give a amp of D50 and feed patient and continue to recheck.
[2020-07-11] MEDS ORDERED: hydrALAZINE 20 MG/ML SDV IVPUSH ONE (09:40)
--- NOTE | 2020-07-11 10:13 | CR ---
INDICATION: Hematemesis COMPARISON: April 25, 2020 TECHNIQUE: Single-view chest radiograph as a portable study FINDINGS: TUBES AND LINES: None. HEART AND MEDIASTINUM: The heart size is normal. The mediastinal contour appears normal for patient age.No pneumomediastinum visible by plain film. LUNGS AND PLEURAL SPACES: The lungs appear normal.There pleural spaces are unremarkable. OSSEOUS STRUCTURES: Age-appropriate appearance. No acute focal finding. IMPRESSION: No evidence of active pulmonary disease. Dictated by Alessandro Bustillos MD @ Jul 11 2020 10:10AM Signed by Dr. Alessandro Bustillos @ Jul 11 2020 10:12AM
[2020-07-11] MEDS ORDERED: amLODIPine 5 MG Tab PO ONE (10:45)
[2020-07-11] MEDS ORDERED: HYDROmorphone 1 MG/ML Syringe IVPUSH ONE (10:45)
[2020-07-11] MEDS ORDERED: Labetalol 100 MG/20 ML MDV IVPUSH ONE ×3 (11:54→15:47)
[2020-07-11] MEDS ORDERED: HYDROmorphone 2 MG/ML Syringe IVPUSH PRN (13:11)
[2020-07-11] MEDS ORDERED: Labetalol 100 MG/20 ML MDV IVPUSH PRN (13:11)
[2020-07-11] MEDS ORDERED: Albuterol/Ipratropium 3.0-0.5 MG/3 ML Neb Soln NEB PRN (13:11)
[2020-07-11] MEDS ORDERED: Glucagon,Human Recombinant 1 MG Vial IM PRN ×2 (13:17→14:41)
[2020-07-11] MEDS ORDERED: Insulin Regular, Human 100 Units/ML 10 ML Vial SUBCUT ONE ×2 (13:50→14:42)
[2020-07-11] MEDS: Lactated Ringers 1,000 ML IV SCH ×2 (14:02→22:37)
[2020-07-11] MEDS ORDERED: 50% Dextrose in Water 50 ML Syringe IV PRN (14:41)
--- NOTE | 2020-07-11 15:03 | PCM.HP.2 ---
H&P History of Present Illness - General Date of Service: 07/11/20 Admit Problem/Dx: Admission Diagnosis/Problem Admission Diagnosis/Problem Acute kidney injury - History of Present Illness Initial Comments - Free Text/Narative: Patient is a 35-year-old male with PMH of HTN, DM, CKD, BKA, Gastroparesis, who presents today with c/o vomiting and abdominal pain. Patient states he woke up today and felt he was gonna throw up, he did vomit and has associated abdominal pain, Patient states that he was coughing up blood as well has had some coffee- ground emesis around his mouth. Patient denies any chest pain fever, chills, chest pain, syncope, palpitations, SOB alcohol use, Patient has been making good urine . Told me he took his meds but told ER doc that he hasnt taken his meds past few days as well. He was found to be hypertensive, received IV antihypertensives, BS was elevated in 500s, as well, no DKA. Creatinine was elevated as well, Patient was admitted for further management. Abdominal Pain Pain Score (Numeric/FACES): 10 - Related Data Allergies/Adverse Reactions: Allergies Allergy/AdvReac Type Severity Reaction Status Date / Time shrimp Allergy Severe Swelling Verified 07/11/20 08:50 iodine Allergy Unknown Anaphylactic Verified 07/11/20 08:50 Shock Penicillins Allergy Unknown Anaphylactic Verified 07/11/20 08:50 Shock shellfish derived Allergy Anaphylactic Verified 07/11/20 08:50 Shock gluten Allergy Severe Muscle Uncoded 07/11/20 08:50 Aches Home Medications: Home Meds Doxazosin [Cardura] 8 mg PO BEDTIME 09/29/19 [History] Metoprolol Succinate 200 mg PO DAILY 09/29/19 [History] Torsemide 20 mg PO BID 09/29/19 [History] atorvaSTATin [Lipitor] 80 mg PO BEDTIME 09/29/19 [History] Insulin Aspart [NovoLOG] 0 unit SUBCUT .UP TO 60 UN DAILY 09/30/19 [History] Metoclopramide [Reglan] 5 mg PO TIDAC #90 tablet 10/10/19 [Rx] Aspirin [Adult Low Dose Aspirin EC] 81 mg PO DAILY 12/07/19 [History] Enalapril Maleate 20 mg PO DAILY 12/07/19 [History] Insulin Glarg,Human.Rec.Analog [Lantus] 38 mg SUBCUT BEDTIME 12/07/19 [History] Iron Ag,Ps/C/Fa6/B12/Zn/SA/Sto [Niferex Tablet] 150 mg PO BID 12/07/19 [History] Sertraline [Zoloft] 50 mg PO DAILY 12/07/19 [History] Spironolactone [Aldactone] 25 mg PO BID 12/07/19 [History] Sucralfate 1 gm PO QIDACANDBED 12/07/19 [History] amLODIPine Besylate [Amlodipine Besylate] 10 mg PO DAILY 12/07/19 [History] hydrALAZINE [Apresoline] 25 mg PO TID 12/07/19 [History] hydroCHLOROthiazide [Hydrochlorothiazide] 25 mg PO DAILY 12/07/19 [History] Ondansetron [Zofran ODT] 4 mg PO Q8H PRN 04/12/20 [History] Pantoprazole Sodium [Protonix] 40 mg PO DAILY 30 Days #30 suspdr.pkt 05/31/20 [Rx] Furosemide 40 mg PO BID 07/11/20 [History] Past Medical History - Past Health History Medical/Surgical History: Denies Medical/Surgical History HEENT History: Reports: Impaired Vision Other HEENT History: blind right eye Cardiovascular History: Reports: Hypertension Respiratory History: Reports: None Gastrointestinal History: Reports: Gastritis, GERD, Hiatal Hernia, Other (See Below) Other Gastrointestinal History: h/o gastric ulcers, h/o hiatal hernia; gastroparesis Genitourinary History: Reports: Chronic Renal Insuffiency, Diabetic Nephropathy Musculoskeletal History: Reports: Amputation Other Musculoskeletal History: RLE Neurological History: Reports: Neuropathy, Peripheral Other Neuro History: stroke Psychiatric History: Reports: Anxiety Endocrine/Metabolic History: Reports: Diabetes, Type I Other Endocrine/Metabolic History: brittle diabetic. 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 - Past Surgical History Head Surgeries/Procedures: Reports: None HEENT Surgical History: Reports: None Respiratory Surgical History: Reports: None GI Surgical History: Reports: None Male Surgical History: Reports: None Endocrine Surgical History: Reports: None Oncologic Surgical History: Reports: None Dermatological Surgical History: Reports: None Social & Family History - Family History Family Medical History: Noncontributory Cardiac: Reports: High Cholesterol, Hypertension OBGYN: Reports: Neurological: Reports: None Psychiatric: Reports: Anxiety - Tobacco Use Tobacco Use Status *Q: Unknown Ever Used Tobacco - Caffeine Use Caffeine Use: Reports: None Other Caffeine Use: daily Caffeine Use Comment: patient is uncooperated - Living Situation & Occupation Living situation: Reports: Single Occupation: Employed (Currently unemployed.) H&P Review of Systems - Review of Systems: Review Of Systems: See Below General: Reports: Weakness. Denies: Fever, Chills, Malaise Pulmonary: Denies: Shortness of Breath, Wheezing Cardiovascular: Denies: Chest Pain, Palpitations, Dyspnea on Exertion, Edema Gastrointestinal: Reports: Abdominal Pain, Decreased Appetite, Hematemesis, Nausea, Vomiting. Denies: Anorexia, Black Stool, Bloody Stool, Diarrhea, Melena, Stool Incontinence Genitourinary: Denies: Dysuria, Frequency, Burning Musculoskeletal: Denies: Neck Pain, Shoulder Pain, Arm Pain Skin: Denies: Cyanosis, Jaundice, Mottled, Pallor Psychiatric: Reports: Mood Lability, Anxiety. Denies: Confusion, Depression Neurological: Denies: Confusion, Dizziness, Headache, Numbness, Syncope, Ting ling Exam - Exam Exam: See Below - Vital Signs Vital Signs: Last Vital Signs Temp 36.4 C 07/11/20 08:51 Pulse 117 H 07/11/20 12:37 Resp 20 07/11/20 12:37 BP 187/97 H 07/11/20 14:47 Pulse Ox 98 07/11/20 12:37 Weight: 72.575 kg - Exam General: Alert, Oriented, Cooperative, Moderate Distress Neck: Supple, Trachea Midline Lungs: Clear to Auscultation, Normal Respiratory Effort Cardiovascular: Regular Rate, Regular Rhythm GI/Abdominal Exam: Soft, No Mass, Guarding, Rigid, Tender. No: Hepatomegaly, Splenomegaly Skin: Warm, Intact Neuro Extensive - Mental Status: Alert, Oriented x3, Normal Cognition, Memory Intact Psychiatric: Alert, Labile Mood, Anxious - Patient Data Lab Results Last 24 hrs: Laboratory Results - last 24 hr 07/11/20 07/11/20 07/11/20 Range/Units 08:40 08:40 12:04 WBC 11.09 H (4.0-11.0) K/uL RBC 4.54 (4.50-5.90) M/uL Hgb 9.8 L (13.0-17.0) g/dL Hct 31.0 L (38.0-50.0) % MCV 68.3 L (80.0-98.0) fL MCH 21.6 L (27.0-32.0) pg MCHC 31.6 (31.0-37.0) g/dL RDW Std Deviation 43.2 (28.0-62.0) fl RDW Coeff of Dania 17 H (11.0-15.0) % Plt Count 335 (150-400) K/uL MPV 10.20 (7.40-12.00) fL Neut % (Auto) 73.0 (48.0-80.0) % Lymph % (Auto) 11.0 L (16.0-40.0) % [place] % (Auto) 13.9 (0.0-15.0) % Eos % (Auto) 1.6 (0.0-7.0) % Baso % (Auto) 0.5 (0.0-1.5) % Neut # (Auto) 8.1 H (1.4-5.7) K/uL Lymph # (Auto) 1.2 (0.6-2.4) K/uL [place] # (Auto) 1.5 H (0.0-0.8) K/uL Eos # (Auto) 0.2 (0.0-0.7) K/uL Baso # (Auto) 0.1 (0.0-0.1) K/uL Nucleated RBC % 0.0 /100WBC Nucleated RBCs # 0 K/uL Sodium 141 (136-148) mmol/L Potassium 4.5 (3.5-5.1) mmol/L Chloride 107 (98-107) mmol/L Carbon Dioxide 20.3 L (21.0-32.0) mmol/L BUN 59 H (7.0-18.0) mg/dL Creatinine 4.2 H (0.8-1.3) mg/dL Est Cr Clr Drug Dosing 25.44 mL/min Estimated GFR (MDRD) 19.8 ml/min Glucose 227 H (74-106) mg/dL Calcium 9.0 (8.5-10.1) mg/dL Phosphorus 3.8 (2.6-4.7) mg/dL Magnesium 2.0 (1.8-2.4) mg/dL Total Bilirubin 0.2 (0.2-1.0) mg/dL AST 24 (15-37) IU/L ALT 22 (14-63) IU/L Alkaline Phosphatase 100 (46-116) U/L Total Protein 6.7 (6.4-8.2) g/dL Albumin 2.8 L (3.4-5.0) g/dL Globulin 3.9 (2.6-4.0) g/dL Albumin/Globulin Ratio 0.7 L (0.9-1.6) Lipase 39 L (73-393) U/L SARS-CoV-2 RNA (BK) POSITIVE H (NEGATIVE) Result Diagrams: 07/12/20 06:36 07/12/20 06:36 Sepsis Event Note - Evaluation Sepsis Screening Result: Possible Sepsis Risk - Focused Exam Vital Signs: Vital Signs Temp Pulse Resp BP BP Pulse Ox 07/11/20 14:47 187/97 H 07/11/20 14:17 202/112 H 07/11/20 13:32 214/112 H 07/11/20 12:37 117 H 20 206/105 H 98 07/11/20 12:02 127 H 22 H 207/111 H 97 07/11/20 11:32 124 H 22 H 199/108 H 97 07/11/20 11:01 122 H 20 215/111 H 98 07/11/20 10:58 215/111 H 07/11/20 10:47 112 H 209/107 H 97 07/11/20 10:17 120 H 214/115 H 97 07/11/20 09:32 118 H 25 H 193/108 H 95 07/11/20 09:17 120 H 24 H 186/112 H 95 07/11/20 09:02 125 H 30 H 211/110 H 96 07/11/20 08:51 36.4 C 137 H 28 H 221/124 H 97 - Problem List (1) Chronic renal insufficiency SNOMED Code(s): 400364238 ICD Code: N18.9 - CHRONIC KIDNEY DISEASE, UNSPECIFIED Status: Chronic Current Visit: No (2) Uncontrolled diabetes mellitus SNOMED Code(s): 45031542, 460435817 ICD Code: E11.65 - TYPE 2 DIABETES MELLITUS WITH HYPERGLYCEMIA Status: Acute Current Visit: No (3) Abdominal pain SNOMED Code(s): 35043874 ICD Code: R10.9 - UNSPECIFIED ABDOMINAL PAIN Status: Acute Priority: High Current Visit: No Qualifiers: Abdominal location: generalized Qualified Code(s): R10.84 - Generalized abdominal pain (4) Hypertension SNOMED Code(s): 96453173 ICD Code: I10 - ESSENTIAL (PRIMARY) HYPERTENSION Status: Chronic Current Visit: No Qualifiers: Hypertension type: essential hypertension Qualified Code(s): I10 - Essential (primary) hypertension (5) Intractable nausea and vomiting SNOMED Code(s): 288399522 ICD Code: R11.2 - NAUSEA WITH VOMITING, UNSPECIFIED Status: Acute Priority: High Current Visit: No (6) S/P BKA (below knee amputation) unilateral SNOMED Code(s): 616885573, 34309596, 375169434 ICD Code: Z89.519 - ACQUIRED ABSENCE OF UNSPECIFIED LEG BELOW KNEE Status: Chronic Priority: Medium Current Visit: No Problem List Initiated/Reviewed/Updated: Yes Orders Last 24hrs: Active Orders 24 hr Category Date Time Status Admission Status [Patient Status] [ADT] Stat ADT 07/11/20 12:12 Active Accu Check [Blood Glucose Check, Bedside] [RC] Q6H Care 07/11/20 13:19 Active Ambulate [RC] ASDIRECTED Care 07/11/20 13:11 Active Antiembolic Devices [RC] PER UNIT ROUTINE Care 07/11/20 13:14 Active EKG Documentation Completion [RC] STAT Care 07/11/20 11:55 Active Oxygen Therapy [RC] PRN Care 07/11/20 13:11 Active RT Aerosol Therapy [RC] ASDIRECTED Care 07/11/20 13:16 Active VTE/DVT Education [RC] PER UNIT ROUTINE Care 07/11/20 13:11 Active Vital Signs [RC] Q4H Care 07/11/20 13:11 Active Nothing per Oral Now Diet [DIET] Diet 07/11/20 Dinner Active Albuterol/Ipratropium [DuoNeb 3.0-0.5 MG/3 ML] Med 07/11/20 13:11 Active 3 ml NEB Q4HRRT PRN Dextrose 50% in Water Med 07/11/20 13:17 Active 50 ml IV ASDIRECTED PRN Glucagon,Human Recombinant [GlucaGen] Med 07/11/20 13:17 Active 1 mg IM ASDIRECTED PRN HYDROmorphone [Dilaudid] Med 07/11/20 13:11 Active 1 mg IVPUSH Q4H PRN Insulin Aspart [NovoLOG] Med 07/11/20 13:30 Active See Protocol SUBCUT Q6H Labetalol [Normodyne] Med 07/11/20 13:11 Active 20 mg IVPUSH Q6H PRN Lactated Ringers [Ringers, Lactated] 1,000 ml Med 07/11/20 13:15 Active IV ASDIRECTED Promethazine [Phenergan] Med 07/11/20 13:11 Active 12.5 mg IM Q4H PRN Sodium Chloride 0.9% [Saline Flush] Med 07/11/20 08:48 Active 10 ml FLUSH ASDIRECTED PRN Sodium Chloride 0.9% [Saline Flush] Med 07/11/20 08:48 Active 2.5 ml FLUSH ASDIRECTED PRN Saline Lock Insert [OM.PC] Stat Oth 07/11/20 08:48 Ordered Sequential Compression Device [OM.PC] Per Unit Routine Oth 07/11/20 13:13 Ordered Resuscitation Status Routine Resus Stat 07/11/20 13:11 Ordered Medication Orders Albuterol/Ipratropium (Duoneb 3.0-0.5 Mg/3 Ml) 3 ml NEB Q4HRRT PRN PRN Reason: Shortness Of Breath/wheezing Dextrose/Water (Dextrose 50% In Water) 50 ml IV ASDIRECTED PRN PRN Reason: Hypoglycemia Glucagon (Glucagen) 1 mg IM ASDIRECTED PRN PRN Reason: Hypoglycemia Hydromorphone HCl (Dilaudid) 1 mg IVPUSH Q4H PRN PRN Reason: Pain (severe 7-10) Lactated Ringer's (Ringers, Lactated) 1,000 mls @ 125 mls/hr IV ASDIRECTED MICHAEL Last Admin: 07/11/20 14:02 Dose: 125 mls/hr Documented by: ANNE Insulin Aspart (Novolog) 0 unit SUBCUT Q6H MICHAEL; Protocol Labetalol HCl (Normodyne) 20 mg IVPUSH Q6H PRN; Protocol PRN Reason: Hypertension Promethazine HCl (Phenergan) 12.5 mg IM Q4H PRN PRN Reason: Nausea/Vomiting Sodium Chloride (Saline Flush) 10 ml FLUSH ASDIRECTED PRN PRN Reason: Keep Vein Open Last Admin: 07/11/20 09:01 Dose: 10 ml Documented by: ARLEY Sodium Chloride (Saline Flush) 2.5 ml FLUSH ASDIRECTED PRN PRN Reason: Keep Vein Open Last Admin: 07/11/20 09:01 Dose: 2.5 ml Documented by: ARLEY Assessment/Plan Comment:: 35 y/o M admitted for Hypertensive emergency, uncontrolled DM, N/V Abdominal pain currently BP is better 180/90 Start IV fluids Keep NPO IV Dilaudid for pain, IM Phenergan for N/V Haldol as needed for agitation SSI for DM, no DKA currently IV labetalol as needed for High BP Patient has OTILIA over CKD, vs progression of CKD Continue to trend Daily, needs aggressive BP and Blood sugar control Reported hematemesis, Hb is stable, will continue to monitor closely Resume home meds as appropriate
[2020-07-11] MEDS ORDERED: hydrALAZINE 25 MG Tab PO SCH ×2 (15:18→22:00)
[2020-07-11] MEDS ORDERED: HYDROmorphone 2 MG/ML Syringe IVPUSH ONE (15:56)
[2020-07-11] MEDS: Insulin Aspart 100 Units/ML 3 ML Pen SUBCUT SCH ×2 (16:09→20:22)
[2020-07-11] MEDS ORDERED: Nitroglycerin/D5W 25 MG/250 ML BOTTLE ONE (16:11)
[2020-07-11] MEDS ORDERED: Nitroglycerin/D5W 25 MG/250 ML BOTTLE IV SCH (16:15)
[2020-07-11 17:15] LABS: CARBON DIOXIDE,CO2 19.4 mmol/L (21.0-32.0); POTASSIUM,K 4.6 mmol/L (3.5-5.1)
[2020-07-11] MEDS ORDERED: 50% Dextrose in Water 50 ML Syringe IVPUSH ONE (19:21)
[2020-07-11] MEDS ORDERED: 50% Dextrose in Water 50 ML Syringe ONE (19:21)
[2020-07-11] MEDS: HYDROmorphone 1 MG/ML Syringe IVPUSH PRN ×2 (20:11→23:31)
[2020-07-11] MEDS: Pantoprazole 40 MG in Sodium Chloride 0.9% 10 ML IV SCH (20:12)
[2020-07-11] MEDS: 50% Dextrose in Water 50 ML Syringe IV PRN (20:18)
[2020-07-11] MEDS: Insulin Glargine,Human Rec. Analog 100 Units/ML 3 ML Pen SUBCUT SCH (20:22)
[2020-07-11] MEDS: Doxazosin 4 MG Tab PO SCH (20:22)
[2020-07-11] MEDS: Promethazine 25 MG/ML SDV IM PRN (22:30)
[2020-07-11] MEDS ORDERED: Haloperidol Lactate 5 MG/ML SDV IM PRN (23:44)
[2020-07-11] MEDS ORDERED: diphenhydrAMINE 50 MG/ML SDV IVPUSH PRN (23:44)
[2020-07-11] MEDS ORDERED: Ondansetron 4 MG/2 ML SDV IVPUSH PRN (23:50)
[2020-07-12] MEDS: Doxazosin 4 MG Tab PO SCH ×2 (01:44→20:05)
[2020-07-12] MEDS: Promethazine 25 MG/ML SDV IM PRN ×4 (02:21→20:03)
[2020-07-12] MEDS: HYDROmorphone 1 MG/ML Syringe IVPUSH PRN ×5 (02:24→20:04)
[2020-07-12] MEDS: Insulin Aspart 100 Units/ML 3 ML Pen SUBCUT SCH ×4 (02:35→20:07)
[2020-07-12] MEDS: Insulin Glargine,Human Rec. Analog 100 Units/ML 3 ML Pen SUBCUT SCH ×2 (02:36→22:16)
[2020-07-12] MEDS: Lactated Ringers 1,000 ML IV SCH ×2 (06:35→22:30)
[2020-07-12] MEDS ORDERED: hydrALAZINE 20 MG/ML SDV ONE (06:55)
[2020-07-12] MEDS ORDERED: hydrALAZINE 25 MG Tab ONE (06:59)
[2020-07-12] MEDS: hydrALAZINE 25 MG Tab PO SCH ×4 (07:01→20:05)
[2020-07-12 07:21] LABS: CARBON DIOXIDE,CO2 23.8 mmol/L (21.0-32.0); POTASSIUM,K 4.4 mmol/L (3.5-5.1)
[2020-07-12] MEDS ORDERED: 50% Dextrose in Water 50 ML Syringe IVPUSH ONE (08:30)
[2020-07-12] MEDS: 50% Dextrose in Water 50 ML Syringe IV PRN (08:34)
[2020-07-12] MEDS: Sodium Chloride 0.9% 2.5 ML Syringe FLUSH PRN ×2 (08:35→13:30)
[2020-07-12] MEDS: Metoprolol Succinate 100 MG Tab.ER PO SCH (08:40)
[2020-07-12] MEDS: Pantoprazole 40 MG in Sodium Chloride 0.9% 10 ML IV SCH ×2 (08:40→20:04)
[2020-07-12] MEDS: amLODIPine 5 MG Tab PO SCH (08:42)
--- NOTE | 2020-07-12 13:48 | PCM.PN ---
<Patsy Galvez - Last Filed: 07/12/20 14:23> - General Info Date of Service: 07/12/20 Subjective Update: Pt is a 35 y/o M with PMHx of Poorly controlled Type 1 DM, HTN, CKD, BKA and chronic gastroparesis. Came in with complains of vomiting, coughing up blood, had residue of coffee ground emesis around his mouth. States he had not taken his meds in the last few days. Was admitted for Hypertensive emergency, elevated BS >500. Last night was admitted for aggressive BP and BS control into the ICU. Eventually developed BS of 44- requiring D5AMP. Was put on NPO diet , has not been compliant. Also was reported to have been repeatedly requesting pain medications. Pt was seen an examine cortez bedside this morning. At this time had a BS of 50 even after having a apple juice despite medical advice. Was given a dose of D5AMP to correct glucose. Pt was argumentative and verbally abusive to myself and the nursing staff. At this time I kindly ensured patient we are ensuring his safety and wellbeing and would benefit from complying with the medical advice. - Review of Systems General: Reports: No Symptoms HEENT: Reports: No Symptoms Pulmonary: Reports: No Symptoms Cardiovascular: Reports: No Symptoms Genitourinary: Reports: No Symptoms Musculoskeletal: Reports: No Symptoms Skin: Reports: No Symptoms Neurological: Reports: No Symptoms Psychiatric: Reports: No Symptoms - Patient Data Vitals - Most Recent: Last Vital Signs Temp 99.2 F 07/12/20 12:06 Pulse 98 07/12/20 12:06 Resp 16 07/12/20 12:06 BP 141/87 H 07/12/20 12:06 Pulse Ox 98 07/12/20 12:06 Weight - Most Recent: 72.575 kg I&O - Last 24 Hours: Intake & Output 07/11/20 07/12/20 07/12/20 22:59 06:59 14:59 Intake Total 1279 Balance 1279 Lab Results Last 24 Hours: Laboratory Results - last 24 hr 07/11/20 07/11/20 07/11/20 Range/Units 15:28 16:07 16:38 WBC (4.0-11.0) K/uL RBC (4.50-5.90) M/uL Hgb (13.0-17.0) g/dL Hct (38.0-50.0) % MCV (80.0-98.0) fL MCH (27.0-32.0) pg MCHC (31.0-37.0) g/dL RDW Std Deviation (28.0-62.0) fl RDW Coeff of Dania (11.0-15.0) % Plt Count (150-400) K/uL MPV (7.40-12.00) fL Neut % (Auto) (48.0-80.0) % Lymph % (Auto) (16.0-40.0) % Nash % (Auto) (0.0-15.0) % Eos % (Auto) (0.0-7.0) % Baso % (Auto) (0.0-1.5) % Neut # (Auto) (1.4-5.7) K/uL Lymph # (Auto) (0.6-2.4) K/uL Nash # (Auto) (0.0-0.8) K/uL Eos # (Auto) (0.0-0.7) K/uL Baso # (Auto) (0.0-0.1) K/uL Nucleated RBC % /100WBC Nucleated RBCs # K/uL VBG pH (7.31-7.41) VBG pCO2 (35-45) mmHG VBG pO2 (30-40) mmHG VBG HCO3 (22-30) mEq/L VBG Total CO2 (41-51) mmol/L VBG Base Excess (-3.0-3.0) Sodium 142 (136-148) mmol/L Potassium 4.6 (3.5-5.1) mmol/L Chloride 108 H (98-107) mmol/L Carbon Dioxide 19.4 L (21.0-32.0) mmol/L BUN 60 H (7.0-18.0) mg/dL Creatinine 4.3 H (0.8-1.3) mg/dL Est Cr Clr Drug Dosing 24.85 mL/min Estimated GFR (MDRD) 19.3 ml/min Glucose 379 H (74-106) mg/dL POC Glucose 442 H 399 H (60-110) mg/dL Calcium 8.5 (8.5-10.1) mg/dL Phosphorus (2.6-4.7) mg/dL Magnesium (1.8-2.4) mg/dL 07/11/20 07/11/20 07/11/20 Range/Units 16:38 16:47 17:24 WBC 11.19 H (4.0-11.0) K/uL RBC 4.02 L (4.50-5.90) M/uL Hgb 8.8 L (13.0-17.0) g/dL Hct 27.8 L (38.0-50.0) % MCV 69.2 L (80.0-98.0) fL MCH 21.9 L (27.0-32.0) pg MCHC 31.7 (31.0-37.0) g/dL RDW Std Deviation 43.9 (28.0-62.0) fl RDW Coeff of Dania 17 H (11.0-15.0) % Plt Count 271 (150-400) K/uL MPV 9.70 (7.40-12.00) fL Neut % (Auto) (48.0-80.0) % Lymph % (Auto) (16.0-40.0) % Nash % (Auto) (0.0-15.0) % Eos % (Auto) (0.0-7.0) % Baso % (Auto) (0.0-1.5) % Neut # (Auto) (1.4-5.7) K/uL Lymph # (Auto) (0.6-2.4) K/uL Nash # (Auto) (0.0-0.8) K/uL Eos # (Auto) (0.0-0.7) K/uL Baso # (Auto) (0.0-0.1) K/uL Nucleated RBC % 0.0 /100WBC Nucleated RBCs # 0 K/uL VBG pH 7.37 (7.31-7.41) VBG pCO2 35 (35-45) mmHG VBG pO2 78 H (30-40) mmHG VBG HCO3 20 L (22-30) mEq/L VBG Total CO2 19 L (41-51) mmol/L VBG Base Excess -4.6 L (-3.0-3.0) Sodium (136-148) mmol/L Potassium (3.5-5.1) mmol/L Chloride (98-107) mmol/L Carbon Dioxide (21.0-32.0) mmol/L BUN (7.0-18.0) mg/dL Creatinine (0.8-1.3) mg/dL Est Cr Clr Drug Dosing mL/min Estimated GFR (MDRD) ml/min Glucose (74-106) mg/dL POC Glucose 343 H (60-110) mg/dL Calcium (8.5-10.1) mg/dL Phosphorus (2.6-4.7) mg/dL Magnesium (1.8-2.4) mg/dL 07/11/20 07/11/20 07/11/20 Range/Units 17:26 17:58 18:31 WBC (4.0-11.0) K/uL RBC (4.50-5.90) M/uL Hgb (13.0-17.0) g/dL Hct (38.0-50.0) % MCV (80.0-98.0) fL MCH (27.0-32.0) pg MCHC (31.0-37.0) g/dL RDW Std Deviation (28.0-62.0) fl RDW Coeff of Dania (11.0-15.0) % Plt Count (150-400) K/uL MPV (7.40-12.00) fL Neut % (Auto) (48.0-80.0) % Lymph % (Auto) (16.0-40.0) % Nash % (Auto) (0.0-15.0) % Eos % (Auto) (0.0-7.0) % Baso % (Auto) (0.0-1.5) % Neut # (Auto) (1.4-5.7) K/uL Lymph # (Auto) (0.6-2.4) K/uL Nash # (Auto) (0.0-0.8) K/uL Eos # (Auto) (0.0-0.7) K/uL Baso # (Auto) (0.0-0.1) K/uL Nucleated RBC % /100WBC Nucleated RBCs # K/uL VBG pH (7.31-7.41) VBG pCO2 (35-45) mmHG VBG pO2 (30-40) mmHG VBG HCO3 (22-30) mEq/L VBG Total CO2 (41-51) mmol/L VBG Base Excess (-3.0-3.0) Sodium (136-148) mmol/L Potassium (3.5-5.1) mmol/L Chloride (98-107) mmol/L Carbon Dioxide (21.0-32.0) mmol/L BUN (7.0-18.0) mg/dL Creatinine (0.8-1.3) mg/dL Est Cr Clr Drug Dosing mL/min Estimated GFR (MDRD) ml/min Glucose (74-106) mg/dL POC Glucose 238 H 189 H 110 (60-110) mg/dL Calcium (8.5-10.1) mg/dL Phosphorus (2.6-4.7) mg/dL Magnesium (1.8-2.4) mg/dL 07/11/20 07/11/20 07/11/20 Range/Units 19:19 20:09 20:25 WBC (4.0-11.0) K/uL RBC (4.50-5.90) M/uL Hgb (13.0-17.0) g/dL Hct (38.0-50.0) % MCV (80.0-98.0) fL MCH (27.0-32.0) pg MCHC (31.0-37.0) g/dL RDW Std Deviation (28.0-62.0) fl RDW Coeff of Dania (11.0-15.0) % Plt Count (150-400) K/uL MPV (7.40-12.00) fL Neut % (Auto) (48.0-80.0) % Lymph % (Auto) (16.0-40.0) % Nash % (Auto) (0.0-15.0) % Eos % (Auto) (0.0-7.0) % Baso % (Auto) (0.0-1.5) % Neut # (Auto) (1.4-5.7) K/uL Lymph # (Auto) (0.6-2.4) K/uL Nash # (Auto) (0.0-0.8) K/uL Eos # (Auto) (0.0-0.7) K/uL Baso # (Auto) (0.0-0.1) K/uL Nucleated RBC % /100WBC Nucleated RBCs # K/uL VBG pH (7.31-7.41) VBG pCO2 (35-45) mmHG VBG pO2 (30-40) mmHG VBG HCO3 (22-30) mEq/L VBG Total CO2 (41-51) mmol/L VBG Base Excess (-3.0-3.0) Sodium (136-148) mmol/L Potassium (3.5-5.1) mmol/L Chloride (98-107) mmol/L Carbon Dioxide (21.0-32.0) mmol/L BUN (7.0-18.0) mg/dL Creatinine (0.8-1.3) mg/dL Est Cr Clr Drug Dosing mL/min Estimated GFR (MDRD) ml/min Glucose (74-106) mg/dL POC Glucose 44 L 55 L 188 H (60-110) mg/dL Calcium (8.5-10.1) mg/dL Phosphorus (2.6-4.7) mg/dL Magnesium (1.8-2.4) mg/dL 07/11/20 07/12/20 07/12/20 Range/Units 23:36 02:33 06:35 WBC (4.0-11.0) K/uL RBC (4.50-5.90) M/uL Hgb (13.0-17.0) g/dL Hct (38.0-50.0) % MCV (80.0-98.0) fL MCH (27.0-32.0) pg MCHC (31.0-37.0) g/dL RDW Std Deviation (28.0-62.0) fl RDW Coeff of Dania (11.0-15.0) % Plt Count (150-400) K/uL MPV (7.40-12.00) fL Neut % (Auto) (48.0-80.0) % Lymph % (Auto) (16.0-40.0) % Nash % (Auto) (0.0-15.0) % Eos % (Auto) (0.0-7.0) % Baso % (Auto) (0.0-1.5) % Neut # (Auto) (1.4-5.7) K/uL Lymph # (Auto) (0.6-2.4) K/uL Nash # (Auto) (0.0-0.8) K/uL Eos # (Auto) (0.0-0.7) K/uL Baso # (Auto) (0.0-0.1) K/uL Nucleated RBC % /100WBC Nucleated RBCs # K/uL VBG pH (7.31-7.41) VBG pCO2 (35-45) mmHG VBG pO2 (30-40) mmHG VBG HCO3 (22-30) mEq/L VBG Total CO2 (41-51) mmol/L VBG Base Excess (-3.0-3.0) Sodium (136-148) mmol/L Potassium (3.5-5.1) mmol/L Chloride (98-107) mmol/L Carbon Dioxide (21.0-32.0) mmol/L BUN (7.0-18.0) mg/dL Creatinine (0.8-1.3) mg/dL Est Cr Clr Drug Dosing mL/min Estimated GFR (MDRD) ml/min Glucose (74-106) mg/dL POC Glucose 100 337 H 64 (60-110) mg/dL Calcium (8.5-10.1) mg/dL Phosphorus (2.6-4.7) mg/dL Magnesium (1.8-2.4) mg/dL 07/12/20 07/12/20 07/12/20 Range/Units 06:36 06:36 08:29 WBC 11.62 H (4.0-11.0) K/uL RBC 3.66 L (4.50-5.90) M/uL Hgb 7.8 L (13.0-17.0) g/dL Hct 25.2 L (38.0-50.0) % MCV 68.9 L (80.0-98.0) fL MCH 21.3 L (27.0-32.0) pg MCHC 31.0 (31.0-37.0) g/dL RDW Std Deviation 44.2 (28.0-62.0) fl RDW Coeff of Dania 18 H (11.0-15.0) % Plt Count 270 (150-400) K/uL MPV 10.10 (7.40-12.00) fL Neut % (Auto) 71.9 (48.0-80.0) % Lymph % (Auto) 11.3 L (16.0-40.0) % Nash % (Auto) 16.6 H (0.0-15.0) % Eos % (Auto) 0.0 (0.0-7.0) % Baso % (Auto) 0.2 (0.0-1.5) % Neut # (Auto) 8.4 H (1.4-5.7) K/uL Lymph # (Auto) 1.3 (0.6-2.4) K/uL Nash # (Auto) 1.9 H (0.0-0.8) K/uL Eos # (Auto) 0.0 (0.0-0.7) K/uL Baso # (Auto) 0.0 (0.0-0.1) K/uL Nucleated RBC % 0.0 /100WBC Nucleated RBCs # 0 K/uL VBG pH (7.31-7.41) VBG pCO2 (35-45) mmHG VBG pO2 (30-40) mmHG VBG HCO3 (22-30) mEq/L VBG Total CO2 (41-51) mmol/L VBG Base Excess (-3.0-3.0) Sodium 144 (136-148) mmol/L Potassium 4.4 (3.5-5.1) mmol/L Chloride 111 H (98-107) mmol/L Carbon Dioxide 23.8 (21.0-32.0) mmol/L BUN 53 H (7.0-18.0) mg/dL Creatinine 3.8 H (0.8-1.3) mg/dL Est Cr Clr Drug Dosing 28.12 mL/min Estimated GFR (MDRD) 22.2 ml/min Glucose 73 L (74-106) mg/dL POC Glucose 50 L (60-110) mg/dL Calcium 7.8 L (8.5-10.1) mg/dL Phosphorus 3.9 (2.6-4.7) mg/dL Magnesium 1.9 (1.8-2.4) mg/dL 07/12/20 07/12/20 07/12/20 Range/Units 09:20 10:56 13:30 WBC (4.0-11.0) K/uL RBC (4.50-5.90) M/uL Hgb (13.0-17.0) g/dL Hct (38.0-50.0) % MCV (80.0-98.0) fL MCH (27.0-32.0) pg MCHC (31.0-37.0) g/dL RDW Std Deviation (28.0-62.0) fl RDW Coeff of Dania (11.0-15.0) % Plt Count (150-400) K/uL MPV (7.40-12.00) fL Neut % (Auto) (48.0-80.0) % Lymph % (Auto) (16.0-40.0) % Nash % (Auto) (0.0-15.0) % Eos % (Auto) (0.0-7.0) % Baso % (Auto) (0.0-1.5) % Neut # (Auto) (1.4-5.7) K/uL Lymph # (Auto) (0.6-2.4) K/uL Nash # (Auto) (0.0-0.8) K/uL Eos # (Auto) (0.0-0.7) K/uL Baso # (Auto) (0.0-0.1) K/uL Nucleated RBC % /100WBC Nucleated RBCs # K/uL VBG pH (7.31-7.41) VBG pCO2 (35-45) mmHG VBG pO2 (30-40) mmHG VBG HCO3 (22-30) mEq/L VBG Total CO2 (41-51) mmol/L VBG Base Excess (-3.0-3.0) Sodium (136-148) mmol/L Potassium (3.5-5.1) mmol/L Chloride (98-107) mmol/L Carbon Dioxide (21.0-32.0) mmol/L BUN (7.0-18.0) mg/dL Creatinine (0.8-1.3) mg/dL Est Cr Clr Drug Dosing mL/min Estimated GFR (MDRD) ml/min Glucose (74-106) mg/dL POC Glucose 137 H 83 104 (60-110) mg/dL Calcium (8.5-10.1) mg/dL Phosphorus (2.6-4.7) mg/dL Magnesium (1.8-2.4) mg/dL Med Orders - Current: Current Medications Albuterol/Ipratropium (Duoneb 3.0-0.5 Mg/3 Ml) 3 ml NEB Q4HRRT PRN PRN Reason: Shortness Of Breath/wheezing Amlodipine Besylate (Norvasc) 10 mg PO DAILY [facility] Last Admin: 07/12/20 08:42 Dose: 10 mg Documented by: Dextrose/Water (Dextrose 50% In Water) 50 ml IV ASDIRECTED PRN PRN Reason: Hypoglycemia Last Admin: 07/12/20 08:34 Dose: 50 ml Documented by: Diphenhydramine HCl (Benadryl) 25 mg IVPUSH Q4H PRN PRN Reason: Agitation Doxazosin Mesylate (Cardura) 8 mg PO BEDTIME MICHAEL Last Admin: 07/12/20 01:44 Dose: 8 mg Documented by: Glucagon (Glucagen) 1 mg IM ASDIRECTED PRN PRN Reason: Hypoglycemia Haloperidol Lactate (Haldol) 5 mg IM Q4H PRN PRN Reason: Agitation Hydralazine HCl (Apresoline) 50 mg PO Q8H MICHAEL Last Admin: 07/12/20 12:04 Dose: 50 mg Documented by: Hydromorphone HCl (Dilaudid) 1 mg IVPUSH Q3H PRN PRN Reason: Pain (severe 7-10) Last Admin: 07/12/20 11:01 Dose: 1 mg Documented by: Lactated Ringer's (Ringers, Lactated) 1,000 mls @ 125 mls/hr IV ASDIRECTED MICHAEL Last Admin: 07/12/20 06:35 Dose: 125 mls/hr Documented by: Pantoprazole Sodium 40 mg/ (Sodium Chloride) 10 mls @ 300 mls/hr IV BID [facility] Last Admin: 07/12/20 08:40 Dose: 300 mls/hr Documented by: Nitroglycerin/Dextrose (Nitroglycerin 25 Mg/D5w 250 Ml) 25 mg in 250 mls @ 3 mls/hr IV TITRATE [facility]; Protocol Last Titration: 07/11/20 16:18 Dose: 0 mcg/min, 0 mls/hr Documented by: Insulin Aspart (Novolog) 0 unit SUBCUT Q6H [facility]; Protocol Last Admin: 07/12/20 13:31 Dose: Not Given Documented by: Insulin Glargine (Lantus Solostar) 20 units SUBCUT BEDTIME [facility] Last Admin: 07/12/20 02:36 Dose: 20 unit Documented by: Labetalol HCl (Normodyne) 20 mg IVPUSH Q6H PRN; Protocol PRN Reason: Hypertension Metoprolol Succinate (Toprol Xl) 200 mg PO DAILY [facility] Last Admin: 07/12/20 08:40 Dose: 200 mg Documented by: Ondansetron HCl (Zofran) 4 mg IVPUSH Q4H PRN PRN Reason: Nausea/Vomiting Promethazine HCl (Phenergan) 12.5 mg IM Q4H PRN PRN Reason: Nausea/Vomiting Last Admin: 07/12/20 06:44 Dose: 12.5 mg Documented by: Sodium Chloride (Saline Flush) 10 ml FLUSH ASDIRECTED PRN PRN Reason: Keep Vein Open Last Admin: 07/11/20 09:01 Dose: 10 ml Documented by: Sodium Chloride (Saline Flush) 2.5 ml FLUSH ASDIRECTED PRN PRN Reason: Keep Vein Open Last Admin: 07/11/20 09:01 Dose: 2.5 ml Documented by: Discontinued Medications Amlodipine Besylate (Norvasc) 10 mg PO ONETIME ONE Stop: 07/11/20 10:46 Last Admin: 07/11/20 10:58 Dose: 10 mg Documented by: Dextrose/Water (Dextrose 50% In Water) 50 ml IV ASDIRECTED PRN PRN Reason: Hypoglycemia Dextrose/Water (Dextrose 50% In Water) 50 ml IVPUSH ONETIME ONE Stop: 07/11/20 19:22 Last Admin: 07/11/20 19:26 Dose: 50 ml Documented by: Dextrose/Water (Dextrose 50% In Water) Confirm Administered Dose 50 ml .ROUTE .STK-MED ONE Stop: 07/11/20 19:22 Last Admin: 07/11/20 20:21 Dose: Not Given Documented by: Dextrose/Water (Dextrose 50% In Water) 50 ml IVPUSH ONETIME ONE Stop: 07/12/20 08:31 Last Admin: 07/12/20 09:37 Dose: Not Given Documented by: Diphenhydramine HCl (Benadryl) 25 mg IVPUSH ONETIME ONE Stop: 07/11/20 08:52 Last Admin: 07/11/20 09:01 Dose: 25 mg Documented by: Glucagon (Glucagen) 1 mg IM ASDIRECTED PRN PRN Reason: Hypoglycemia Haloperidol Lactate (Haldol) 5 mg IM ONETIME ONE Stop: 07/11/20 08:50 Last Admin: 07/11/20 09:00 Dose: 5 mg Documented by: Hydralazine HCl (Apresoline) 10 mg IVPUSH ONETIME ONE Stop: 07/11/20 09:41 Last Admin: 07/11/20 10:04 Dose: 10 mg Documented by: Hydralazine HCl (Apresoline) 25 mg PO TID MICHAEL Hydralazine HCl (Apresoline) 25 mg PO TID MICHAEL Last Admin: 07/11/20 16:20 Dose: Not Given Documented by: Hydralazine HCl (Apresoline) 25 mg PO TID MICHAEL Last Admin: 07/12/20 08:02 Dose: Not Given Documented by: Hydralazine HCl (Apresoline) Confirm Administered Dose 20 mg .ROUTE .STK-MED ONE Stop: 07/12/20 06:56 Last Admin: 07/12/20 07:02 Dose: Not Given Documented by: Hydralazine HCl (Apresoline) Confirm Administered Dose 25 mg .ROUTE .STK-MED ONE Stop: 07/12/20 07:00 Last Admin: 07/12/20 07:56 Dose: Not Given Documented by: Hydromorphone HCl (Dilaudid) 1 mg IVPUSH ONETIME ONE Stop: 07/11/20 10:46 Last Admin: 07/11/20 10:58 Dose: 1 mg Documented by: Hydromorphone HCl (Dilaudid) 1 mg IVPUSH Q4H PRN PRN Reason: Pain (severe 7-10) Hydromorphone HCl (Dilaudid) 1 mg IVPUSH Q4H PRN PRN Reason: Pain (severe 7-10) Last Admin: 07/11/20 23:31 Dose: 1 mg Documented by: Hydromorphone HCl (Dilaudid) 1 mg IVPUSH ONETIME ONE Stop: 07/11/20 15:57 Last Admin: 07/11/20 16:10 Dose: 1 mg Documented by: Sodium Chloride (Normal Saline) 1,000 mls @ 999 mls/hr IV .Bolus ONE Stop: 07/11/20 09:55 Last Admin: 07/11/20 09:00 Dose: 999 mls/hr Documented by: Sodium Chloride (Normal Saline) 1,000 mls @ 999 mls/hr IV .BOLUS ONE Stop: 07/11/20 12:37 Last Admin: 07/11/20 11:49 Dose: 999 mls/hr Documented by: Nitroglycerin/Dextrose (Nitroglycerin 25 Mg/D5w 250 Ml) Confirm Administered Dose 25 mg in 250 mls @ as directed .ROUTE .STK-MED ONE Stop: 07/11/20 16:12 Last Admin: 07/11/20 16:19 Dose: Not Given Documented by: Insulin Human Regular (Novolin R) 15 unit SUBCUT ONETIME ONE; Protocol Stop: 07/11/20 13:51 Last Admin: 07/11/20 14:00 Dose: 15 units Documented by: Insulin Human Regular (Novolin R) 10 unit SUBCUT ONETIME ONE; Protocol Stop: 07/11/20 14:43 Last Admin: 07/11/20 14:57 Dose: 10 units Documented by: Labetalol HCl (Normodyne) 20 mg IVPUSH ONETIME ONE; Protocol Stop: 07/11/20 11:55 Last Admin: 07/11/20 12:33 Dose: 20 mg Documented by: Labetalol HCl (Normodyne) 20 mg IVPUSH ONETIME ONE; Protocol Stop: 07/11/20 13:44 Last Admin: 07/11/20 14:02 Dose: 20 mg Documented by: Labetalol HCl (Normodyne) 40 mg IVPUSH ONETIME ONE; Protocol Stop: 07/11/20 15:48 Last Admin: 07/11/20 16:11 Dose: Not Given Documented by: - Exam General: Alert, Oriented, Other (non cooperative, refusing appropriate medical care) HEENT: Pupils Equal, Pupils Reactive, EOMI, Mucous Membr. Moist/[place] Neck: Supple, Trachea Midline, No JVD Lungs: Clear to Auscultation, Normal Respiratory Effort Cardiovascular: Regular Rate, Regular Rhythm, No Murmurs GI/Abdominal Exam: Other (refused this exam, did not share that he was in pain.) Extremities: Normal Inspection, Normal Range of Motion, No Pedal Edema, Normal Capillary Refill, Other (only able to assess left leg, as Rt leg has been amputated below the knee. ) Peripheral Pulses: 2+: Dorsalis Pedis (L), Dorsalis Pedis (R) Skin: Warm, Dry, Intact Neurological: No New Focal Deficit Psy/Mental Status: Alert, Normal Affect, Other (argumentative, rude, not willing to listen. Had to speak with him and spend time explaining the need for treatment. Pt eventually settled down) Sepsis Event Note - Evaluation Sepsis Screening Result: Possible Sepsis Risk - Focused Exam Vital Signs: Vital Signs Temp Pulse Pulse Resp BP BP BP 07/12/20 12:06 99.2 F 98 16 141/87 H 07/12/20 12:04 141/87 H 07/12/20 08:43 99.7 F 122 H 18 160/97 H 07/12/20 08:42 160/97 H 07/12/20 08:40 115 H 160/97 H 07/12/20 08:02 187/104 H 07/12/20 07:56 187/104 H 07/12/20 07:01 187/104 H 07/12/20 06:00 99.1 F 109 H 20 187/104 H 07/12/20 02:45 115 H 20 174/98 H Pulse Ox 07/12/20 12:06 98 07/12/20 12:04 07/12/20 08:43 98 07/12/20 08:42 07/12/20 08:40 07/12/20 08:02 07/12/20 07:56 07/12/20 07:01 07/12/20 06:00 98 07/12/20 02:45 96 - Problem List & Annotations (1) Leukocytosis SNOMED Code(s): 574972722, 954649478 Code(s): D72.829 - ELEVATED WHITE BLOOD CELL COUNT, UNSPECIFIED Status: Acute Current Visit: Yes (2) OTILIA (acute kidney injury) SNOMED Code(s): 91862322, 98317361 Code(s): N17.9 - ACUTE KIDNEY FAILURE, UNSPECIFIED Status: Acute Current Visit: Yes (3) Gastroparesis SNOMED Code(s): 375267700 Code(s): K31.84 - GASTROPARESIS Status: Acute Priority: High Current Visit: Yes (4) Hypertensive urgency SNOMED Code(s): 629494613 Code(s): I16.0 - HYPERTENSIVE URGENCY Status: Acute Current Visit: Yes (5) Abdominal pain SNOMED Code(s): 73437703 Code(s): R10.9 - UNSPECIFIED ABDOMINAL PAIN Status: Acute Priority: High Current Visit: No Qualifiers: Abdominal location: generalized Qualified Code(s): R10.84 - Generalized abd ominal pain (6) Hematemesis SNOMED Code(s): 6342683 Code(s): K92.0 - HEMATEMESIS Status: Acute Priority: High Current Visit: No Qualifiers: Nausea presence: with nausea Qualified Code(s): K92.0 - Hematemesis (7) Diabetes mellitus type I SNOMED Code(s): 72029424 Code(s): E10.9 - TYPE 1 DIABETES MELLITUS WITHOUT COMPLICATIONS Status: Chronic Priority: High Current Visit: No Qualifiers: Diabetes mellitus complication status: with kidney complications Diabetes mellitus complication detail: with chronic kidney disease Chronic kidney disease stage: stage 3 (moderate) - Problem List Review Problem List Initiated/Reviewed/Updated: Yes - My Orders Last 24 Hours: My Active Orders 07/12/20 Lunch Clear Liquid Diet [DIET] 07/12/20 11:45 hydrALAZINE [Apresoline] 50 mg PO Q8H 07/12/20 15:00 HEMOGLOBIN/HEMATOCRIT,HH [HEME] Routine - Plan Plan:: 35 y/o M admitted for Hypertensive emergency, uncontrolled DM, N/V Abdominal pain Pt is also COVID positive without an respiratory symptoms 1. HTN Emergency -currently BP is better 160/92, continue with Hydralazine 25 adjusted to 50 TID. Doxazosin and Metoprol. 2. HYperglycemia- resolved 3.Hypoglycemia- BS 50 this morning therefore gave amp of D50. to normalize sugar. Repeat BS , and continue to monitor closely, adjust sliding scale. Pt provided diabetic education previously but chooses to be non compliant. Will dormitory counselor extensively again. 3. OTILIA vs worsening of CKD- improved, BUN 53, Cr 3.8 this morning, continue with LR at 125, avoid nephrotoxic agents. Continue to trend daily a.m labs. 4. Hematemesis: no anticoagulation. Continue to monitor. No vomiting this morning. Hg has dropped by 2. No source of bleeding. Asymptomatic. Repeat at 1500. If pt becomes symptomatic, or remains less than 8 will consider transfusing 1 unit. No need for imaging at this time, as pt has had freq imaging previously for the same complaint and is not willing to undergo such a procedure at this time. Continue with Pantoprazole BID. Was NPO, will advance to clear liquid diet. 5. Mild Leukocytosis- pt remains afebrile, we will continue to monitor closely. PHMx, resume home medications. IV Dilaudid for pain, IM Phenergan for N/V Haldol as needed for agitation <Gini Maens - Last Filed: 07/13/20 23:06> - Patient Data Vitals - Most Recent: Last Vital Signs Temp 37.1 C 07/13/20 20:00 Pulse 93 07/13/20 16:49 Resp 17 07/13/20 20:00 BP 153/84 H 07/13/20 20:06 Pulse Ox 96 07/13/20 20:00 I&O - Last 24 Hours: Intake & Output 07/13/20 07/13/20 07/14/20 14:59 22:59 06:59 Intake Total 2750 Output Total 1200 Balance 1550 Lab Results Last 24 Hours: Laboratory Results - last 24 hr 07/12/20 07/12/20 07/13/20 Range/Units 19:39 21:50 00:37 WBC (4.0-11.0) K/uL RBC (4.50-5.90) M/uL Hgb (13.0-17.0) g/dL Hct (38.0-50.0) % MCV (80.0-98.0) fL MCH (27.0-32.0) pg MCHC (31.0-37.0) g/dL RDW Std Deviation (28.0-62.0) fl RDW Coeff of Dania (11.0-15.0) % Plt Count (150-400) K/uL MPV (7.40-12.00) fL Neut % (Auto) (48.0-80.0) % Lymph % (Auto) (16.0-40.0) % Nash % (Auto) (0.0-15.0) % Eos % (Auto) (0.0-7.0) % Baso % (Auto) (0.0-1.5) % Neut # (Auto) (1.4-5.7) K/uL Lymph # (Auto) (0.6-2.4) K/uL Nash # (Auto) (0.0-0.8) K/uL Eos # (Auto) (0.0-0.7) K/uL Baso # (Auto) (0.0-0.1) K/uL Nucleated RBC % /100WBC Nucleated RBCs # K/uL Sodium (136-148) mmol/L Potassium (3.5-5.1) mmol/L Chloride (98-107) mmol/L Carbon Dioxide (21.0-32.0) mmol/L BUN (7.0-18.0) mg/dL Creatinine (0.8-1.3) mg/dL Est Cr Clr Drug Dosing mL/min Estimated GFR (MDRD) ml/min Glucose (74-106) mg/dL POC Glucose 93 83 73 (60-110) mg/dL Calcium (8.5-10.1) mg/dL Phosphorus (2.6-4.7) mg/dL Magnesium (1.8-2.4) mg/dL Total Bilirubin (0.2-1.0) mg/dL AST (15-37) IU/L ALT (14-63) IU/L Alkaline Phosphatase (46-116) U/L Total Protein (6.4-8.2) g/dL Albumin (3.4-5.0) g/dL Globulin (2.6-4.0) g/dL Albumin/Globulin Ratio (0.9-1.6) 07/13/20 07/13/20 07/13/20 Range/Units 03:34 05:20 05:20 WBC 7.85 (4.0-11.0) K/uL RBC 3.97 L (4.50-5.90) M/uL Hgb 8.5 L (13.0-17.0) g/dL Hct 27.4 L (38.0-50.0) % MCV 69.0 L (80.0-98.0) fL MCH 21.4 L (27.0-32.0) pg MCHC 31.0 (31.0-37.0) g/dL RDW Std Deviation 43.8 (28.0-62.0) fl RDW Coeff of Dania 18 H (11.0-15.0) % Plt Count 251 (150-400) K/uL MPV 9.70 (7.40-12.00) fL Neut % (Auto) 68.5 (48.0-80.0) % Lymph % (Auto) 16.1 (16.0-40.0) % Nash % (Auto) 15.0 (0.0-15.0) % Eos % (Auto) 0.1 (0.0-7.0) % Baso % (Auto) 0.3 (0.0-1.5) % Neut # (Auto) 5.4 (1.4-5.7) K/uL Lymph # (Auto) 1.3 (0.6-2.4) K/uL Nash # (Auto) 1.2 H (0.0-0.8) K/uL Eos # (Auto) 0.0 (0.0-0.7) K/uL Baso # (Auto) 0.0 (0.0-0.1) K/uL Nucleated RBC % 0.0 /100WBC Nucleated RBCs # 0 K/uL Sodium 137 (136-148) mmol/L Potassium 4.0 (3.5-5.1) mmol/L Chloride 106 (98-107) mmol/L Carbon Dioxide 21.7 (21.0-32.0) mmol/L BUN 36 H (7.0-18.0) mg/dL Creatinine 3.5 H (0.8-1.3) mg/dL Est Cr Clr Drug Dosing 30.53 mL/min Estimated GFR (MDRD) 24.4 ml/min Glucose 177 H (74-106) mg/dL POC Glucose 176 H (60-110) mg/dL Calcium 7.6 L (8.5-10.1) mg/dL Phosphorus 4.4 (2.6-4.7) mg/dL Magnesium 1.5 L (1.8-2.4) mg/dL Total Bilirubin 0.2 (0.2-1.0) mg/dL AST 42 H (15-37) IU/L ALT 20 (14-63) IU/L Alkaline Phosphatase 71 (46-116) U/L Total Protein 5.2 L (6.4-8.2) g/dL Albumin 2.0 L (3.4-5.0) g/dL Globulin 3.2 (2.6-4.0) g/dL Albumin/Globulin Ratio 0.6 L (0.9-1.6) 07/13/20 07/13/20 07/13/20 Range/Units 07:04 11:07 11:40 WBC (4.0-11.0) K/uL RBC (4.50-5.90) M/uL Hgb (13.0-17.0) g/dL Hct (38.0-50.0) % MCV (80.0-98.0) fL MCH (27.0-32.0) pg MCHC (31.0-37.0) g/dL RDW Std Deviation (28.0-62.0) fl RDW Coeff of Dania (11.0-15.0) % Plt Count (150-400) K/uL MPV (7.40-12.00) fL Neut % (Auto) (48.0-80.0) % Lymph % (Auto) (16.0-40.0) % Nash % (Auto) (0.0-15.0) % Eos % (Auto) (0.0-7.0) % Baso % (Auto) (0.0-1.5) % Neut # (Auto) (1.4-5.7) K/uL Lymph # (Auto) (0.6-2.4) K/uL Nash # (Auto) (0.0-0.8) K/uL Eos # (Auto) (0.0-0.7) K/uL Baso # (Auto) (0.0-0.1) K/uL Nucleated RBC % /100WBC Nucleated RBCs # K/uL Sodium (136-148) mmol/L Potassium (3.5-5.1) mmol/L Chloride (98-107) mmol/L Carbon Dioxide (21.0-32.0) mmol/L BUN (7.0-18.0) mg/dL Creatinine (0.8-1.3) mg/dL Est Cr Clr Drug Dosing mL/min Estimated GFR (MDRD) ml/min Glucose (74-106) mg/dL POC Glucose 216 H < 20 L 109 (60-110) mg/dL Calcium (8.5-10.1) mg/dL Phosphorus (2.6-4.7) mg/dL Magnesium (1.8-2.4) mg/dL Total Bilirubin (0.2-1.0) mg/dL AST (15-37) IU/L ALT (14-63) IU/L Alkaline Phosphatase (46-116) U/L Total Protein (6.4-8.2) g/dL Albumin (3.4-5.0) g/dL Globulin (2.6-4.0) g/dL Albumin/Globulin Ratio (0.9-1.6) 07/13/20 07/13/20 07/13/20 Range/Units 13:51 16:46 19:07 WBC (4.0-11.0) K/uL RBC (4.50-5.90) M/uL Hgb (13.0-17.0) g/dL Hct (38.0-50.0) % MCV (80.0-98.0) fL MCH (27.0-32.0) pg MCHC (31.0-37.0) g/dL RDW Std Deviation (28.0-62.0) fl RDW Coeff of Dania (11.0-15.0) % Plt Count (150-400) K/uL MPV (7.40-12.00) fL Neut % (Auto) (48.0-80.0) % Lymph % (Auto) (16.0-40.0) % Nash % (Auto) (0.0-15.0) % Eos % (Auto) (0.0-7.0) % Baso % (Auto) (0.0-1.5) % Neut # (Auto) (1.4-5.7) K/uL Lymph # (Auto) (0.6-2.4) K/uL Nash # (Auto) (0.0-0.8) K/uL Eos # (Auto) (0.0-0.7) K/uL Baso # (Auto) (0.0-0.1) K/uL Nucleated RBC % /100WBC Nucleated RBCs # K/uL Sodium (136-148) mmol/L Potassium (3.5-5.1) mmol/L Chloride (98-107) mmol/L Carbon Dioxide (21.0-32.0) mmol/L BUN (7.0-18.0) mg/dL Creatinine (0.8-1.3) mg/dL Est Cr Clr Drug Dosing mL/min Estimated GFR (MDRD) ml/min Glucose (74-106) mg/dL POC Glucose 114 H 138 H 150 H (60-110) mg/dL Calcium (8.5-10.1) mg/dL Phosphorus (2.6-4.7) mg/dL Magnesium (1.8-2.4) mg/dL Total Bilirubin (0.2-1.0) mg/dL AST (15-37) IU/L ALT (14-63) IU/L Alkaline Phosphatase (46-116) U/L Total Protein (6.4-8.2) g/dL Albumin (3.4-5.0) g/dL Globulin (2.6-4.0) g/dL Albumin/Globulin Ratio (0.9-1.6) Med Orders - Current: Current Medications Albuterol/Ipratropium (Duoneb 3.0-0.5 Mg/3 Ml) 3 ml NEB Q4HRRT PRN PRN Reason: Shortness Of Breath/wheezing Amlodipine Besylate (Norvasc) 10 mg PO DAILY [facility] Last Admin: 07/13/20 08:55 Dose: 10 mg Documented by: Dextrose/Water (Dextrose 50% In Water) 50 ml IV ASDIRECTED PRN PRN Reason: Hypoglycemia Last Admin: 07/13/20 11:11 Dose: 50 ml Documented by: Diphenhydramine HCl (Benadryl) 25 mg IVPUSH Q4H PRN PRN Reason: Agitation Doxazosin Mesylate (Cardura) 8 mg PO BEDTIME MICHAEL Last Admin: 07/13/20 20:06 Dose: 8 mg Documented by: Glucagon (Glucagen) 1 mg IM ASDIRECTED PRN PRN Reason: Hypoglycemia Haloperidol Lactate (Haldol) 5 mg IM Q4H PRN PRN Reason: Agitation Hydralazine HCl (Apresoline) 50 mg PO Q8H MICHAEL Last Admin: 07/13/20 19:09 Dose: 50 mg Documented by: Hydromorphone HCl (Dilaudid) 1 mg IVPUSH Q3H PRN PRN Reason: Pain (severe 7-10) Last Admin: 07/13/20 20:01 Dose: 1 mg Documented by: Lactated Ringer's (Ringers, Lactated) 1,000 mls @ 125 mls/hr IV ASDIRECTED MICHAEL Last Admin: 07/13/20 16:53 Dose: 125 mls/hr Documented by: Pantoprazole Sodium 40 mg/ (Sodium Chloride) 10 mls @ 300 mls/hr IV BID MICHAEL Last Admin: 07/13/20 20:08 Dose: 300 mls/hr Documented by: Nitroglycerin/Dextrose (Nitroglycerin 25 Mg/D5w 250 Ml) 25 mg in 250 mls @ 3 mls/hr IV TITRATE [facility]; Protocol Last Titration: 07/11/20 16:18 Dose: 0 mcg/min, 0 mls/hr Documented by: Insulin Aspart (Novolog) 0 unit SUBCUT Q6H [facility]; Protocol Last Admin: 07/13/20 19:09 Dose: Not Given Documented by: Insulin Glargine (Lantus Solostar) 20 units SUBCUT BEDTIME MICHAEL Last Admin: 07/13/20 20:07 Dose: 20 unit Documented by: Labetalol HCl (Normodyne) 20 mg IVPUSH Q6H PRN; Protocol PRN Reason: Hypertension Last Admin: 07/13/20 00:53 Dose: 20 mg Documented by: Metoprolol Succinate (Toprol Xl) 200 mg PO DAILY [facility] Last Admin: 07/13/20 08:55 Dose: 200 mg Documented by: Ondansetron HCl (Zofran) 4 mg IVPUSH Q4H PRN PRN Reason: Nausea/Vomiting Promethazine HCl (Phenergan) 12.5 mg IM Q4H PRN PRN Reason: Nausea/Vomiting Last Admin: 07/13/20 10:11 Dose: 12.5 mg Documented by: Sodium Chloride (Saline Flush) 10 ml FLUSH ASDIRECTED PRN PRN Reason: Keep Vein Open Last Admin: 07/11/20 09:01 Dose: 10 ml Documented by: Sodium Chloride (Saline Flush) 2.5 ml FLUSH ASDIRECTED PRN PRN Reason: Keep Vein Open Last Admin: 07/12/20 13:30 Dose: 2.5 ml Documented by: Sodium Chloride ([place] Nasal [place]) 1 ml CORNELIUS Q2H PRN PRN Reason: Congestion Last Admin: 07/13/20 07:25 Dose: 1 spray Documented by: Discontinued Medications Amlodipine Besylate (Norvasc) 10 mg PO ONETIME ONE Stop: 07/11/20 10:46 Last Admin: 07/11/20 10:58 Dose: 10 mg Documented by: Dextrose/Water (Dextrose 50% In Water) 50 ml IV ASDIRECTED PRN PRN Reason: Hypoglycemia Dextrose/Water (Dextrose 50% In Water) 50 ml IVPUSH ONETIME ONE Stop: 07/11/20 19:22 Last Admin: 07/11/20 19:26 Dose: 50 ml Documented by: Dextrose/Water (Dextrose 50% In Water) Confirm Administered Dose 50 ml .ROUTE .STK-MED ONE Stop: 07/11/20 19:22 Last Admin: 07/11/20 20:21 Dose: Not Given Documented by: Dextrose/Water (Dextrose 50% In Water) 50 ml IVPUSH ONETIME ONE Stop: 07/12/20 08:31 Last Admin: 07/12/20 09:37 Dose: Not Given Documented by: Diphenhydramine HCl (Benadryl) 25 mg IVPUSH ONETIME ONE Stop: 07/11/20 08:52 Last Admin: 07/11/20 09:01 Dose: 25 mg Documented by: Glucagon (Glucagen) 1 mg IM ASDIRECTED PRN PRN Reason: Hypoglycemia Haloperidol Lactate (Haldol) 5 mg IM ONETIME ONE Stop: 07/11/20 08:50 Last Admin: 07/11/20 09:00 Dose: 5 mg Documented by: Hydralazine HCl (Apresoline) 10 mg IVPUSH ONETIME ONE Stop: 07/11/20 09:41 Last Admin: 07/11/20 10:04 Dose: 10 mg Documented by: Hydralazine HCl (Apresoline) 25 mg PO TID MICHAEL Hydralazine HCl (Apresoline) 25 mg PO TID MICHAEL Last Admin: 07/11/20 16:20 Dose: Not Given Documented by: Hydralazine HCl (Apresoline) 25 mg PO TID [place] Last Admin: 07/12/20 08:02 Dose: Not Given Documented by: Hydralazine HCl (Apresoline) Confirm Administered Dose 20 mg .ROUTE .STK-MED ONE Stop: 07/12/20 06:56 Last Admin: 07/12/20 07:02 Dose: Not Given Documented by: Hydralazine HCl (Apresoline) Confirm Administered Dose 25 mg .ROUTE .STK-MED ONE Stop: 07/12/20 07:00 Last Admin: 07/12/20 07:56 Dose: Not Given Documented by: Hydromorphone HCl (Dilaudid) 1 mg IVPUSH ONETIME ONE Stop: 07/11/20 10:46 Last Admin: 07/11/20 10:58 Dose: 1 mg Documented by: Hydromorphone HCl (Dilaudid) 1 mg IVPUSH Q4H PRN PRN Reason: Pain (severe 7-10) Hydromorphone HCl (Dilaudid) 1 mg IVPUSH Q4H PRN PRN Reason: Pain (severe 7-10) Last Admin: 07/11/20 23:31 Dose: 1 mg Documented by: Hydromorphone HCl (Dilaudid) 1 mg IVPUSH ONETIME ONE Stop: 07/11/20 15:57 Last Admin: 07/11/20 16:10 Dose: 1 mg Documented by: Sodium Chloride (Normal Saline) 1,000 mls @ 999 mls/hr IV .Bolus ONE Stop: 07/11/20 09:55 Last Admin: 07/11/20 09:00 Dose: 999 mls/hr Documented by: Sodium Chloride (Normal Saline) 1,000 mls @ 999 mls/hr IV .BOLUS ONE Stop: 07/11/20 12:37 Last Admin: 07/11/20 11:49 Dose: 999 mls/hr Documented by: Nitroglycerin/Dextrose (Nitroglycerin 25 Mg/D5w 250 Ml) Confirm Administered Dose 25 mg in 250 mls @ as directed .ROUTE .STK-MED ONE Stop: 07/11/20 16:12 Last Admin: 07/11/20 16:19 Dose: Not Given Documented by: Magnesium Sulfate (Magnesium Sulfate In Water Premix) 2 gm in 50 mls @ 50 mls/hr IV ONETIME ONE Stop: 07/13/20 10:44 Last Admin: 07/13/20 10:12 Dose: 50 mls/hr Documented by: Insulin Human Regular (Novolin R) 15 unit SUBCUT ONETIME ONE; Protocol Stop: 07/11/20 13:51 Last Admin: 07/11/20 14:00 Dose: 15 units Documented by: Insulin Human Regular (Novolin R) 10 unit SUBCUT ONETIME ONE; Protocol Stop: 07/11/20 14:43 Last Admin: 07/11/20 14:57 Dose: 10 units Documented by: Labetalol HCl (Normodyne) 20 mg IVPUSH ONETIME ONE; Protocol Stop: 07/11/20 11:55 Last Admin: 07/11/20 12:33 Dose: 20 mg Documented by: Labetalol HCl (Normodyne) 20 mg IVPUSH ONETIME ONE; Protocol Stop: 07/11/20 13:44 Last Admin: 07/11/20 14:02 Dose: 20 mg Documented by: Labetalol HCl (Normodyne) 40 mg IVPUSH ONETIME ONE; Protocol Stop: 07/11/20 15:48 Last Admin: 07/11/20 16:11 Dose: Not Given Documented by: Sepsis Event Note - Focused Exam Vital Signs: Vital Signs Temp Pulse Resp BP BP Pulse Ox 07/13/20 20:06 153/84 H 07/13/20 20:00 37.1 C 17 153/84 H 96 07/13/20 19:09 149/81 H 07/13/20 16:49 37.6 C 93 18 149/81 H 96 07/13/20 12:12 157/91 H 07/13/20 11:50 37.3 C 96 18 155/91 H 96 - Problem List & Annotations (1) Chronic renal insufficiency SNOMED Code(s): 106340992 Code(s): N18.9 - CHRONIC KIDNEY DISEASE, UNSPECIFIED Status: Chronic Current Visit: No (2) Uncontrolled diabetes mellitus SNOMED Code(s): 40250619, 708185694 Code(s): E11.65 - TYPE 2 DIABETES MELLITUS WITH HYPERGLYCEMIA Status: Acute Current Visit: No (3) Abdominal pain SNOMED Code(s): 36516492 Code(s): R10.9 - UNSPECIFIED ABDOMINAL PAIN Status: Acute Priority: High Current Visit: No Qualifiers: Abdominal location: generalized Qualified Code(s): R10.84 - Generalized abdominal pain (4) Hypertension SNOMED Code(s): 41647167 Code(s): I10 - ESSENTIAL (PRIMARY) HYPERTENSION Status: Chronic Current Visit: No Qualifiers: Hypertension type: essential hypertension Qualified Code(s): I10 - Essential (primary) hypertension (5) Intractable nausea and vomiting SNOMED Code(s): 622269791 Code(s): R11.2 - NAUSEA WITH VOMITING, UNSPECIFIED Status: Acute Priority: High Current Visit: No (6) S/P BKA (below knee amputation) unilateral SNOMED Code(s): 679042893, 67168215, 068433634 Code(s): Z89.519 - ACQUIRED ABSENCE OF UNSPECIFIED LEG BELOW KNEE Status: Chronic Priority: Medium Current Visit: No - Plan Plan:: I have seen and evaluated the patient and agree with the residents note unless specified in my note
[2020-07-13] MEDS: HYDROmorphone 1 MG/ML Syringe IVPUSH PRN ×6 (00:49→20:01)
[2020-07-13] MEDS: Insulin Aspart 100 Units/ML 3 ML Pen SUBCUT SCH ×4 (01:43→19:09)
[2020-07-13] MEDS: hydrALAZINE 25 MG Tab PO SCH ×3 (03:13→19:09)
[2020-07-13 05:53] LABS: CARBON DIOXIDE,CO2 21.7 mmol/L (21.0-32.0)
[2020-07-13] MEDS: Lactated Ringers 1,000 ML IV SCH ×2 (07:07→16:53)
[2020-07-13] MEDS ORDERED: Sodium Chloride 0.65% Nasal Spray 45 ML Bottle NAS PRN (07:07)
[2020-07-13] MEDS: Metoprolol Succinate 100 MG Tab.ER PO SCH (08:55)
[2020-07-13] MEDS: amLODIPine 5 MG Tab PO SCH (08:55)
[2020-07-13] MEDS: Pantoprazole 40 MG in Sodium Chloride 0.9% 10 ML IV SCH ×2 (08:55→20:08)
[2020-07-13] MEDS ORDERED: Magnesium Sulfate/Water 2 GM/50 ML Premix Bag IV ONE (09:28)
[2020-07-13] MEDS ORDERED: Magnesium Sulfate/Water 2 GM/50 ML BAG IV ONE (09:45)
[2020-07-13] MEDS: Promethazine 25 MG/ML SDV IM PRN (10:11)
[2020-07-13] MEDS: 50% Dextrose in Water 50 ML Syringe IV PRN (11:11)
--- NOTE | 2020-07-13 12:28 | PCM.PN ---
- General Info Date of Service: 07/13/20 Subjective Update: 35 y/o M admitted for Hypertensive emergency, OTILIA on CKD, significantly uncontrolled blood sugars. Is improving and being closely monitored in the ICU. Last night SBP > 180 givenen IV labetalol and Iv dilaudid last night for abdominal pain. Has been tolerating a liquid diet. This morning complaints of nasal congestion, is otherwise stable and doing well. - Review of Systems General: Reports: No Symptoms HEENT: Reports: Sinus Congestion Pulmonary: Reports: No Symptoms Cardiovascular: Reports: No Symptoms Gastrointestinal: Reports: No Symptoms Genitourinary: Reports: No Symptoms Musculoskeletal: Reports: No Symptoms Skin: Reports: No Symptoms Neurological: Reports: No Symptoms Psychiatric: Reports: No Symptoms - Patient Data Vitals - Most Recent: Last Vital Signs Temp 99.1 F 07/13/20 11:50 Pulse 96 07/13/20 11:50 Resp 18 07/13/20 11:50 BP 157/91 H 07/13/20 12:12 Pulse Ox 96 07/13/20 11:50 Weight - Most Recent: 160 lb I&O - Last 24 Hours: Intake & Output 07/12/20 07/13/20 07/13/20 22:59 06:59 14:59 Intake Total 1440 2310 Output Total 1200 1600 Balance 240 710 Lab Results Last 24 Hours: Laboratory Results - last 24 hr 07/12/20 07/12/20 07/12/20 Range/Units 13:30 15:05 15:40 WBC (4.0-11.0) K/uL RBC (4.50-5.90) M/uL Hgb 8.3 L (13.0-17.0) g/dL Hct 26.4 L (38.0-50.0) % MCV (80.0-98.0) fL MCH (27.0-32.0) pg MCHC (31.0-37.0) g/dL RDW Std Deviation (28.0-62.0) fl RDW Coeff of Dania (11.0-15.0) % Plt Count (150-400) K/uL MPV (7.40-12.00) fL Neut % (Auto) (48.0-80.0) % Lymph % (Auto) (16.0-40.0) % [place] % (Auto) (0.0-15.0) % Eos % (Auto) (0.0-7.0) % Baso % (Auto) (0.0-1.5) % Neut # (Auto) (1.4-5.7) K/uL Lymph # (Auto) (0.6-2.4) K/uL [place] # (Auto) (0.0-0.8) K/uL Eos # (Auto) (0.0-0.7) K/uL Baso # (Auto) (0.0-0.1) K/uL Nucleated RBC % /100WBC Nucleated RBCs # K/uL Sodium (136-148) mmol/L Potassium (3.5-5.1) mmol/L Chloride (98-107) mmol/L Carbon Dioxide (21.0-32.0) mmol/L BUN (7.0-18.0) mg/dL Creatinine (0.8-1.3) mg/dL Est Cr Clr Drug Dosing mL/min Estimated GFR (MDRD) ml/min Glucose (74-106) mg/dL POC Glucose 104 93 (60-110) mg/dL Calcium (8.5-10.1) mg/dL Phosphorus (2.6-4.7) mg/dL Magnesium (1.8-2.4) mg/dL Total Bilirubin (0.2-1.0) mg/dL AST (15-37) IU/L ALT (14-63) IU/L Alkaline Phosphatase (46-116) U/L Total Protein (6.4-8.2) g/dL Albumin (3.4-5.0) g/dL Globulin (2.6-4.0) g/dL Albumin/Globulin Ratio (0.9-1.6) 07/12/20 07/12/20 07/13/20 Range/Units 19:39 21:50 00:37 WBC (4.0-11.0) K/uL RBC (4.50-5.90) M/uL Hgb (13.0-17.0) g/dL Hct (38.0-50.0) % MCV (80.0-98.0) fL MCH (27.0-32.0) pg MCHC (31.0-37.0) g/dL RDW Std Deviation (28.0-62.0) fl RDW Coeff of Dania (11.0-15.0) % Plt Count (150-400) K/uL MPV (7.40-12.00) fL Neut % (Auto) (48.0-80.0) % Lymph % (Auto) (16.0-40.0) % [place] % (Auto) (0.0-15.0) % Eos % (Auto) (0.0-7.0) % Baso % (Auto) (0.0-1.5) % Neut # (Auto) (1.4-5.7) K/uL Lymph # (Auto) (0.6-2.4) K/uL [place] # (Auto) (0.0-0.8) K/uL Eos # (Auto) (0.0-0.7) K/uL Baso # (Auto) (0.0-0.1) K/uL Nucleated RBC % /100WBC Nucleated RBCs # K/uL Sodium (136-148) mmol/L Potassium (3.5-5.1) mmol/L Chloride (98-107) mmol/L Carbon Dioxide (21.0-32.0) mmol/L BUN (7.0-18.0) mg/dL Creatinine (0.8-1.3) mg/dL Est Cr Clr Drug Dosing mL/min Estimated GFR (MDRD) ml/min Glucose (74-106) mg/dL POC Glucose 93 83 73 (60-110) mg/dL Calcium (8.5-10.1) mg/dL Phosphorus (2.6-4.7) mg/dL Magnesium (1.8-2.4) mg/dL Total Bilirubin (0.2-1.0) mg/dL AST (15-37) IU/L ALT (14-63) IU/L Alkaline Phosphatase (46-116) U/L Total Protein (6.4-8.2) g/dL Albumin (3.4-5.0) g/dL Globulin (2.6-4.0) g/dL Albumin/Globulin Ratio (0.9-1.6) 07/13/20 07/13/20 07/13/20 Range/Units 03:34 05:20 05:20 WBC 7.85 (4.0-11.0) K/uL RBC 3.97 L (4.50-5.90) M/uL Hgb 8.5 L (13.0-17.0) g/dL Hct 27.4 L (38.0-50.0) % MCV 69.0 L (80.0-98.0) fL MCH 21.4 L (27.0-32.0) pg MCHC 31.0 (31.0-37.0) g/dL RDW Std Deviation 43.8 (28.0-62.0) fl RDW Coeff of Dania 18 H (11.0-15.0) % Plt Count 251 (150-400) K/uL MPV 9.70 (7.40-12.00) fL Neut % (Auto) 68.5 (48.0-80.0) % Lymph % (Auto) 16.1 (16.0-40.0) % [place] % (Auto) 15.0 (0.0-15.0) % Eos % (Auto) 0.1 (0.0-7.0) % Baso % (Auto) 0.3 (0.0-1.5) % Neut # (Auto) 5.4 (1.4-5.7) K/uL Lymph # (Auto) 1.3 (0.6-2.4) K/uL [place] # (Auto) 1.2 H (0.0-0.8) K/uL Eos # (Auto) 0.0 (0.0-0.7) K/uL Baso # (Auto) 0.0 (0.0-0.1) K/uL Nucleated RBC % 0.0 /100WBC Nucleated RBCs # 0 K/uL Sodium 137 (136-148) mmol/L Potassium 4.0 (3.5-5.1) mmol/L Chloride 106 (98-107) mmol/L Carbon Dioxide 21.7 (21.0-32.0) mmol/L BUN 36 H (7.0-18.0) mg/dL Creatinine 3.5 H (0.8-1.3) mg/dL Est Cr Clr Drug Dosing 30.53 mL/min Estimated GFR (MDRD) 24.4 ml/min Glucose 177 H (74-106) mg/dL POC Glucose 176 H (60-110) mg/dL Calcium 7.6 L (8.5-10.1) mg/dL Phosphorus 4.4 (2.6-4.7) mg/dL Magnesium 1.5 L (1.8-2.4) mg/dL Total Bilirubin 0.2 (0.2-1.0) mg/dL AST 42 H (15-37) IU/L ALT 20 (14-63) IU/L Alkaline Phosphatase 71 (46-116) U/L Total Protein 5.2 L (6.4-8.2) g/dL Albumin 2.0 L (3.4-5.0) g/dL Globulin 3.2 (2.6-4.0) g/dL Albumin/Globulin Ratio 0.6 L (0.9-1.6) 07/13/20 07/13/20 07/13/20 Range/Units 07:04 11:07 11:40 WBC (4.0-11.0) K/uL RBC (4.50-5.90) M/uL Hgb (13.0-17.0) g/dL Hct (38.0-50.0) % MCV (80.0-98.0) fL MCH (27.0-32.0) pg MCHC (31.0-37.0) g/dL RDW Std Deviation (28.0-62.0) fl RDW Coeff of Dania (11.0-15.0) % Plt Count (150-400) K/uL MPV (7.40-12.00) fL Neut % (Auto) (48.0-80.0) % Lymph % (Auto) (16.0-40.0) % [place] % (Auto) (0.0-15.0) % Eos % (Auto) (0.0-7.0) % Baso % (Auto) (0.0-1.5) % Neut # (Auto) (1.4-5.7) K/uL Lymph # (Auto) (0.6-2.4) K/uL [place] # (Auto) (0.0-0.8) K/uL Eos # (Auto) (0.0-0.7) K/uL Baso # (Auto) (0.0-0.1) K/uL Nucleated RBC % /100WBC Nucleated RBCs # K/uL Sodium (136-148) mmol/L Potassium (3.5-5.1) mmol/L Chloride (98-107) mmol/L Carbon Dioxide (21.0-32.0) mmol/L BUN (7.0-18.0) mg/dL Creatinine (0.8-1.3) mg/dL Est Cr Clr Drug Dosing mL/min Estimated GFR (MDRD) ml/min Glucose (74-106) mg/dL POC Glucose 216 H < 20 L 109 (60-110) mg/dL Calcium (8.5-10.1) mg/dL Phosphorus (2.6-4.7) mg/dL Magnesium (1.8-2.4) mg/dL Total Bilirubin (0.2-1.0) mg/dL AST (15-37) IU/L ALT (14-63) IU/L Alkaline Phosphatase (46-116) U/L Total Protein (6.4-8.2) g/dL Albumin (3.4-5.0) g/dL Globulin (2.6-4.0) g/dL Albumin/Globulin Ratio (0.9-1.6) Med Orders - Current: Current Medications Albuterol/Ipratropium (Duoneb 3.0-0.5 Mg/3 Ml) 3 ml NEB Q4HRRT PRN PRN Reason: Shortness Of Breath/wheezing Amlodipine Besylate (Norvasc) 10 mg PO DAILY [facility] Last Admin: 07/13/20 08:55 Dose: 10 mg Documented by: Dextrose/Water (Dextrose 50% In Water) 50 ml IV ASDIRECTED PRN PRN Reason: Hypoglycemia Last Admin: 07/13/20 11:11 Dose: 50 ml Documented by: Diphenhydramine HCl (Benadryl) 25 mg IVPUSH Q4H PRN PRN Reason: Agitation Doxazosin Mesylate (Cardura) 8 mg PO BEDTIME [facility] Last Admin: 07/12/20 20:05 Dose: 8 mg Documented by: Glucagon (Glucagen) 1 mg IM ASDIRECTED PRN PRN Reason: Hypoglycemia Haloperidol Lactate (Haldol) 5 mg IM Q4H PRN PRN Reason: Agitation Hydralazine HCl (Apresoline) 50 mg PO Q8H [facility] Last Admin: 07/13/20 12:12 Dose: 50 mg Documented by: Hydromorphone HCl (Dilaudid) 1 mg IVPUSH Q3H PRN PRN Reason: Pain (severe 7-10) Last Admin: 07/13/20 10:11 Dose: 1 mg Documented by: Lactated Ringer's (Ringers, Lactated) 1,000 mls @ 125 mls/hr IV ASDIRECTED MICHAEL Last Admin: 07/13/20 07:07 Dose: 125 mls/hr Documented by: Pantoprazole Sodium 40 mg/ (Sodium Chloride) 10 mls @ 300 mls/hr IV BID [facility] Last Admin: 07/13/20 08:55 Dose: 300 mls/hr Documented by: Nitroglycerin/Dextrose (Nitroglycerin 25 Mg/D5w 250 Ml) 25 mg in 250 mls @ 3 mls/hr IV TITRATE [facility]; Protocol Last Titration: 07/11/20 16:18 Dose: 0 mcg/min, 0 mls/hr Documented by: Insulin Aspart (Novolog) 0 unit SUBCUT Q6H [facility]; Protocol Last Admin: 07/13/20 08:56 Dose: 6 units Documented by: Insulin Glargine (Lantus Solostar) 20 units SUBCUT BEDTIME [facility] Last Admin: 07/12/20 22:16 Dose: Not Given Documented by: Labetalol HCl (Normodyne) 20 mg IVPUSH Q6H PRN; Protocol PRN Reason: Hypertension Last Admin: 07/13/20 00:53 Dose: 20 mg Documented by: Metoprolol Succinate (Toprol Xl) 200 mg PO DAILY [facility] Last Admin: 07/13/20 08:55 Dose: 200 mg Documented by: Ondansetron HCl (Zofran) 4 mg IVPUSH Q4H PRN PRN Reason: Nausea/Vomiting Promethazine HCl (Phenergan) 12.5 mg IM Q4H PRN PRN Reason: Nausea/Vomiting Last Admin: 07/13/20 10:11 Dose: 12.5 mg Documented by: Sodium Chloride (Saline Flush) 10 ml FLUSH ASDIRECTED PRN PRN Reason: Keep Vein Open Last Admin: 07/11/20 09:01 Dose: 10 ml Documented by: Sodium Chloride (Saline Flush) 2.5 ml FLUSH ASDIRECTED PRN PRN Reason: Keep Vein Open Last Admin: 07/12/20 13:30 Dose: 2.5 ml Documented by: Sodium Chloride ([place] Nasal [place]) 1 ml CORNELIUS Q2H PRN PRN Reason: Congestion Last Admin: 07/13/20 07:25 Dose: 1 spray Documented by: Discontinued Medications Amlodipine Besylate (Norvasc) 10 mg PO ONETIME ONE Stop: 07/11/20 10:46 Last Admin: 07/11/20 10:58 Dose: 10 mg Documented by: Dextrose/Water (Dextrose 50% In Water) 50 ml IV ASDIRECTED PRN PRN Reason: Hypoglycemia Dextrose/Water (Dextrose 50% In Water) 50 ml IVPUSH ONETIME ONE Stop: 07/11/20 19:22 Last Admin: 07/11/20 19:26 Dose: 50 ml Documented by: Dextrose/Water (Dextrose 50% In Water) Confirm Administered Dose 50 ml .ROUTE .STK-MED ONE Stop: 07/11/20 19:22 Last Admin: 07/11/20 20:21 Dose: Not Given Documented by: Dextrose/Water (Dextrose 50% In Water) 50 ml IVPUSH ONETIME ONE Stop: 07/12/20 08:31 Last Admin: 07/12/20 09:37 Dose: Not Given Documented by: Diphenhydramine HCl (Benadryl) 25 mg IVPUSH ONETIME ONE Stop: 07/11/20 08:52 Last Admin: 07/11/20 09:01 Dose: 25 mg Documented by: Glucagon (Glucagen) 1 mg IM ASDIRECTED PRN PRN Reason: Hypoglycemia Haloperidol Lactate (Haldol) 5 mg IM ONETIME ONE Stop: 07/11/20 08:50 Last Admin: 07/11/20 09:00 Dose: 5 mg Documented by: Hydralazine HCl (Apresoline) 10 mg IVPUSH ONETIME ONE Stop: 07/11/20 09:41 Last Admin: 07/11/20 10:04 Dose: 10 mg Documented by: Hydralazine HCl (Apresoline) 25 mg PO TID MICHAEL Hydralazine HCl (Apresoline) 25 mg PO TID MICHAEL Last Admin: 07/11/20 16:20 Dose: Not Given Documented by: Hydralazine HCl (Apresoline) 25 mg PO TID MICHAEL Last Admin: 07/12/20 08:02 Dose: Not Given Documented by: Hydralazine HCl (Apresoline) Confirm Administered Dose 20 mg .ROUTE .STK-MED ONE Stop: 07/12/20 06:56 Last Admin: 07/12/20 07:02 Dose: Not Given Documented by: Hydralazine HCl (Apresoline) Confirm Administered Dose 25 mg .ROUTE .STK-MED ONE Stop: 07/12/20 07:00 Last Admin: 07/12/20 07:56 Dose: Not Given Documented by: Hydromorphone HCl (Dilaudid) 1 mg IVPUSH ONETIME ONE Stop: 07/11/20 10:46 Last Admin: 07/11/20 10:58 Dose: 1 mg Documented by: Hydromorphone HCl (Dilaudid) 1 mg IVPUSH Q4H PRN PRN Reason: Pain (severe 7-10) Hydromorphone HCl (Dilaudid) 1 mg IVPUSH Q4H PRN PRN Reason: Pain (severe 7-10) Last Admin: 07/11/20 23:31 Dose: 1 mg Documented by: Hydromorphone HCl (Dilaudid) 1 mg IVPUSH ONETIME ONE Stop: 07/11/20 15:57 Last Admin: 07/11/20 16:10 Dose: 1 mg Documented by: Sodium Chloride (Normal Saline) 1,000 mls @ 999 mls/hr IV .Bolus ONE Stop: 07/11/20 09:55 Last Admin: 07/11/20 09:00 Dose: 999 mls/hr Documented by: Sodium Chloride (Normal Saline) 1,000 mls @ 999 mls/hr IV .BOLUS ONE Stop: 07/11/20 12:37 Last Admin: 07/11/20 11:49 Dose: 999 mls/hr Documented by: Nitroglycerin/Dextrose (Nitroglycerin 25 Mg/D5w 250 Ml) Confirm Administered Dose 25 mg in 250 mls @ as directed .ROUTE .STK-MED ONE Stop: 07/11/20 16:12 Last Admin: 07/11/20 16:19 Dose: Not Given Documented by: Magnesium Sulfate (Magnesium Sulfate In Water Premix) 2 gm in 50 mls @ 50 mls/hr IV ONETIME ONE Stop: 07/13/20 10:44 Last Admin: 07/13/20 10:12 Dose: 50 mls/hr Documented by: Insulin Human Regular (Novolin R) 15 unit SUBCUT ONETIME ONE; Protocol Stop: 07/11/20 13:51 Last Admin: 07/11/20 14:00 Dose: 15 units Documented by: Insulin Human Regular (Novolin R) 10 unit SUBCUT ONETIME ONE; Protocol Stop: 07/11/20 14:43 Last Admin: 07/11/20 14:57 Dose: 10 units Documented by: Labetalol HCl (Normodyne) 20 mg IVPUSH ONETIME ONE; Protocol Stop: 07/11/20 11:55 Last Admin: 07/11/20 12:33 Dose: 20 mg Documented by: Labetalol HCl (Normodyne) 20 mg IVPUSH ONETIME ONE; Protocol Stop: 07/11/20 13:44 Last Admin: 07/11/20 14:02 Dose: 20 mg Documented by: Labetalol HCl (Normodyne) 40 mg IVPUSH ONETIME ONE; Protocol Stop: 07/11/20 15:48 Last Admin: 07/11/20 16:11 Dose: Not Given Documented by: - Exam General: Alert, Oriented, No Acute Distress HEENT: Pupils Equal, Pupils Reactive, EOMI, Mucous Membr. Moist/[place] Neck: Supple, Trachea Midline, No JVD Lungs: Clear to Auscultation, Normal Respiratory Effort Cardiovascular: Regular Rate, Regular Rhythm, No Murmurs GI/Abdominal Exam: Normal Bowel Sounds, Soft, Non-Tender, No Organomegaly, No Distention, No Abnormal Bruit, No Mass. No: Distended, Guarding, Rigid, Rebound Extremities: Normal Inspection, Normal Range of Motion, No Pedal Edema, Normal Capillary Refill Peripheral Pulses: 2+: Dorsalis Pedis (L), Dorsalis Pedis (R) Skin: Warm, Dry, Intact Neurological: No New Focal Deficit Psy/Mental Status: Alert, Normal Affect, Normal Mood Sepsis Event Note - Evaluation Sepsis Screening Result: No Definite Risk - Focused Exam Vital Signs: Vital Signs Temp Pulse Pulse Resp BP BP Pulse Ox 07/13/20 12:12 157/91 H 07/13/20 11:50 99.1 F 96 18 155/91 H 96 07/13/20 08:55 96 176/105 H 07/13/20 08:51 100.1 F 96 18 176/105 H 96 07/13/20 04:00 99.4 F 18 179/104 H 92 L 07/13/20 03:13 179/104 H - Problem List & Annotations (1) Leukocytosis SNOMED Code(s): 377814432, 522211269 Code(s): D72.829 - ELEVATED WHITE BLOOD CELL COUNT, UNSPECIFIED Status: Acute Current Visit: Yes (2) OTILIA (acute kidney injury) SNOMED Code(s): 91123945, 07136529 Code(s): N17.9 - ACUTE KIDNEY FAILURE, UNSPECIFIED Status: Acute Current Visit: Yes (3) Gastroparesis SNOMED Code(s): 225593701 Code(s): K31.84 - GASTROPARESIS Status: Acute Priority: High Current Visit: Yes (4) Hypertensive urgency SNOMED Code(s): 100524254 Code(s): I16.0 - HYPERTENSIVE URGENCY Status: Acute Current Visit: Yes (5) Abdominal pain SNOMED Code(s): 94366311 Code(s): R10.9 - UNSPECIFIED ABDOMINAL PAIN Status: Acute Priority: High Current Visit: No Qualifiers: Abdominal location: generalized Qualified Code(s): R10.84 - Generalized abdominal pain (6) Hematemesis SNOMED Code(s): 4630727 Code(s): K92.0 - HEMATEMESIS Status: Acute Priority: High Current Visit: No Qualifiers: Nausea presence: with nausea Qualified Code(s): K92.0 - Hematemesis (7) Diabetes mellitus type I SNOMED Code(s): 40544687 Code(s): E10.9 - TYPE 1 DIABETES MELLITUS WITHOUT COMPLICATIONS Status: Chronic Priority: High Current Visit: No Qualifiers: Diabetes mellitus complication status: with kidney complications Diabetes mellitus complication detail: with chronic kidney disease Chronic kidney disease stage: stage 3 (moderate) - Problem List Review Problem List Initiated/Reviewed/Updated: Yes - My Orders Last 24 Hours: My Active Orders 07/12/20 11:45 hydrALAZINE [Apresoline] 50 mg PO Q8H 07/13/20 07:07 Sodium Chloride 0.65% [[place] Nasal [place]] 1 ml CORNELIUS Q2H PRN 07/14/20 05:11 CBC WITH AUTO DIFF [HEME] AM COMPREHENSIVE METABOLIC PN,CMP [CHEM] AM MAGNESIUM [CHEM] AM PHOSPHORUS [CHEM] AM - Plan Plan:: 35 y/o M admitted for Hypertensive emergency, uncontrolled DM, N/V Abdominal pain Pt is also COVID positive without an respiratory symptoms 1. HTN Emergency -currently BP is better 183/101, continue with Hydralazine 50 TID. Doxazosin and Metoprol. Held home nephrotoxic meds due to OTILIA, will cont inue to give IV labetalol 20 mg Iv push as necessary. 2. Hyperglycemia- resolved, 177 this morning, continue to monitor 3.Hypoglycemia- BS 20 after rounds, gave gave amp of D50 4x apple juice. Repeat BS was 109,continue to monitor closely, adjust sliding scale. Pt provided diabetic education previously but chooses to be non compliant. Will mortgage loan counselor extensively again. 3. OTILIA - improved, downtrending BUN 36 and Cr3.5 this morning, continue with LR at 125, avoid nephrotoxic agents. Continue to trend daily a.m labs. 4. Hematemesis: no anticoagulation. Continue to monitor. No vomiting this morning. Hgb 8.5 this morning. No source of bleeding. Asymptomatic. No need for imaging at this time, as pt has had freq imaging previously for the same complaint and is not willing to undergo such a procedure at this time. Continue with Pantoprazole BID. Currently ob clear liquid diet, will advance as tolerated. 5. Mild Leukocytosis- resolved, aferbile, we will continue to monitor closely. 6. nasal congestion: continue with nasal spray given this morning, no fever, wbc, headache, sinus tenderness PHMx, resume home medications. IV Dilaudid for pain, IM Phenergan for N/V Haldol as needed for agitation
[2020-07-13] MEDS: Doxazosin 4 MG Tab PO SCH (20:06)
[2020-07-13] MEDS: Insulin Glargine,Human Rec. Analog 100 Units/ML 3 ML Pen SUBCUT SCH (20:07)
[2020-07-14] MEDS: Lactated Ringers 1,000 ML IV SCH ×2 (01:01→09:09)
[2020-07-14] MEDS: HYDROmorphone 1 MG/ML Syringe IVPUSH PRN ×4 (01:02→16:28)
[2020-07-14] MEDS: Insulin Aspart 100 Units/ML 3 ML Pen SUBCUT SCH ×5 (01:17→17:36)
[2020-07-14] MEDS: hydrALAZINE 25 MG Tab PO SCH ×2 (04:17→11:31)
[2020-07-14 06:48] LABS: CARBON DIOXIDE,CO2 24.3 mmol/L (21.0-32.0); POTASSIUM,K 4.2 mmol/L (3.5-5.1)
[2020-07-14] MEDS: Pantoprazole 40 MG in Sodium Chloride 0.9% 10 ML IV SCH (08:47)
[2020-07-14] MEDS: Metoprolol Succinate 100 MG Tab.ER PO SCH (08:50)
[2020-07-14] MEDS: amLODIPine 5 MG Tab PO SCH (08:51)
--- NOTE | 2020-07-14 12:20 | PCM.PN ---
- General Info Date of Service: 07/14/20 Admission Dx/Problem (Free Text): Admission Diagnosis/Problem Admission Diagnosis/Problem Acute kidney injury Subjective Update: 35 y/o M admitted for Hypertensive emergency, OTILIA on CKD, significantly uncontrolled blood sugars. Is improving and being closely monitored in the ICU. Last night SBP > 180 givenen IV labetalol and Iv dilaudid last night for abdominal pain. Has been tolerating a liquid diet. This morning complaints of nasal congestion, is otherwise stable and doing well. - Review of Systems General: Denies: Fever, Weakness, Fatigue Pulmonary: Denies: Shortness of Breath, Pleuritic Chest Pain Gastrointestinal: Reports: Decreased Appetite. Denies: Abdominal Pain, Constipation, Diarrhea, Difficulty Swallowing Genitourinary: Denies: Dysuria, Frequency, Burning Musculoskeletal: Denies: Neck Pain, Shoulder Pain, Arm Pain Skin: Denies: Cyanosis, Jaundice, Mottled - Patient Data Vitals - Most Recent: Last Vital Signs Temp 37.4 C 07/14/20 11:42 Pulse 89 07/14/20 08:50 Resp 16 07/14/20 11:42 BP 157/94 H 07/14/20 11:42 Pulse Ox 95 07/14/20 11:42 Weight - Most Recent: 72.575 kg I&O - Last 24 Hours: Intake & Output 07/13/20 07/14/20 07/14/20 22:59 06:59 14:59 Intake Total 2750 2290 Output Total 1200 1460 Balance 1550 830 Lab Results Last 24 Hours: Laboratory Results - last 24 hr 07/13/20 07/13/20 07/13/20 Range/Units 13:51 16:46 19:07 WBC (4.0-11.0) K/uL RBC (4.50-5.90) M/uL Hgb (13.0-17.0) g/dL Hct (38.0-50.0) % MCV (80.0-98.0) fL MCH (27.0-32.0) pg MCHC (31.0-37.0) g/dL RDW Std Deviation (28.0-62.0) fl RDW Coeff of Dania (11.0-15.0) % Plt Count (150-400) K/uL MPV (7.40-12.00) fL Neut % (Auto) (48.0-80.0) % Lymph % (Auto) (16.0-40.0) % [place] % (Auto) (0.0-15.0) % Eos % (Auto) (0.0-7.0) % Baso % (Auto) (0.0-1.5) % Neut # (Auto) (1.4-5.7) K/uL Lymph # (Auto) (0.6-2.4) K/uL [place] # (Auto) (0.0-0.8) K/uL Eos # (Auto) (0.0-0.7) K/uL Baso # (Auto) (0.0-0.1) K/uL Nucleated RBC % /100WBC Nucleated RBCs # K/uL Sodium (136-148) mmol/L Potassium (3.5-5.1) mmol/L Chloride (98-107) mmol/L Carbon Dioxide (21.0-32.0) mmol/L BUN (7.0-18.0) mg/dL Creatinine (0.8-1.3) mg/dL Est Cr Clr Drug Dosing mL/min Estimated GFR (MDRD) ml/min Glucose (74-106) mg/dL POC Glucose 114 H 138 H 150 H (60-110) mg/dL Calcium (8.5-10.1) mg/dL Phosphorus (2.6-4.7) mg/dL Magnesium (1.8-2.4) mg/dL Total Bilirubin (0.2-1.0) mg/dL AST (15-37) IU/L ALT (14-63) IU/L Alkaline Phosphatase (46-116) U/L Total Protein (6.4-8.2) g/dL Albumin (3.4-5.0) g/dL Globulin (2.6-4.0) g/dL Albumin/Globulin Ratio (0.9-1.6) 07/14/20 07/14/20 07/14/20 Range/Units 00:56 05:30 05:30 WBC 5.25 (4.0-11.0) K/uL RBC 3.53 L (4.50-5.90) M/uL Hgb 7.7 L (13.0-17.0) g/dL Hct 24.2 L (38.0-50.0) % MCV 68.6 L (80.0-98.0) fL MCH 21.8 L (27.0-32.0) pg MCHC 31.8 (31.0-37.0) g/dL RDW Std Deviation 42.8 (28.0-62.0) fl RDW Coeff of Dania 17 H (11.0-15.0) % Plt Count 227 (150-400) K/uL MPV 10.10 (7.40-12.00) fL Neut % (Auto) 62.5 (48.0-80.0) % Lymph % (Auto) 25.1 (16.0-40.0) % [place] % (Auto) 11.6 (0.0-15.0) % Eos % (Auto) 0.4 (0.0-7.0) % Baso % (Auto) 0.4 (0.0-1.5) % Neut # (Auto) 3.3 (1.4-5.7) K/uL Lymph # (Auto) 1.3 (0.6-2.4) K/uL [place] # (Auto) 0.6 (0.0-0.8) K/uL Eos # (Auto) 0.0 (0.0-0.7) K/uL Baso # (Auto) 0.0 (0.0-0.1) K/uL Nucleated RBC % 0.0 /100WBC Nucleated RBCs # 0 K/uL Sodium 136 (136-148) mmol/L Potassium 4.2 (3.5-5.1) mmol/L Chloride 105 (98-107) mmol/L Carbon Dioxide 24.3 (21.0-32.0) mmol/L BUN 29 H (7.0-18.0) mg/dL Creatinine 3.4 H (0.8-1.3) mg/dL Est Cr Clr Drug Dosing 31.43 mL/min Estimated GFR (MDRD) 25.3 ml/min Glucose 86 (74-106) mg/dL POC Glucose 53 L (60-110) mg/dL Calcium 7.3 L (8.5-10.1) mg/dL Phosphorus 4.5 (2.6-4.7) mg/dL Magnesium 1.9 (1.8-2.4) mg/dL Total Bilirubin 0.1 L (0.2-1.0) mg/dL AST 37 (15-37) IU/L ALT 21 (14-63) IU/L Alkaline Phosphatase 62 (46-116) U/L Total Protein 4.7 L (6.4-8.2) g/dL Albumin 1.8 L (3.4-5.0) g/dL Globulin 2.9 (2.6-4.0) g/dL Albumin/Globulin Ratio 0.6 L (0.9-1.6) 07/14/20 07/14/20 07/14/20 Range/Units 08:40 09:11 11:39 WBC (4.0-11.0) K/uL RBC (4.50-5.90) M/uL Hgb (13.0-17.0) g/dL Hct (38.0-50.0) % MCV (80.0-98.0) fL MCH (27.0-32.0) pg MCHC (31.0-37.0) g/dL RDW Std Deviation (28.0-62.0) fl RDW Coeff of Dania (11.0-15.0) % Plt Count (150-400) K/uL MPV (7.40-12.00) fL Neut % (Auto) (48.0-80.0) % Lymph % (Auto) (16.0-40.0) % [place] % (Auto) (0.0-15.0) % Eos % (Auto) (0.0-7.0) % Baso % (Auto) (0.0-1.5) % Neut # (Auto) (1.4-5.7) K/uL Lymph # (Auto) (0.6-2.4) K/uL [place] # (Auto) (0.0-0.8) K/uL Eos # (Auto) (0.0-0.7) K/uL Baso # (Auto) (0.0-0.1) K/uL Nucleated RBC % /100WBC Nucleated RBCs # K/uL Sodium (136-148) mmol/L Potassium (3.5-5.1) mmol/L Chloride (98-107) mmol/L Carbon Dioxide (21.0-32.0) mmol/L BUN (7.0-18.0) mg/dL Creatinine (0.8-1.3) mg/dL Est Cr Clr Drug Dosing mL/min Estimated GFR (MDRD) ml/min Glucose (74-106) mg/dL POC Glucose 47 L 98 72 (60-110) mg/dL Calcium (8.5-10.1) mg/dL Phosphorus (2.6-4.7) mg/dL Magnesium (1.8-2.4) mg/dL Total Bilirubin (0.2-1.0) mg/dL AST (15-37) IU/L ALT (14-63) IU/L Alkaline Phosphatase (46-116) U/L Total Protein (6.4-8.2) g/dL Albumin (3.4-5.0) g/dL Globulin (2.6-4.0) g/dL Albumin/Globulin Ratio (0.9-1.6) Med Orders - Current: Current Medications Albuterol/Ipratropium (Duoneb 3.0-0.5 Mg/3 Ml) 3 ml NEB Q4HRRT PRN PRN Reason: Shortness Of Breath/wheezing Amlodipine Besylate (Norvasc) 10 mg PO DAILY ON LICENSE OF [facility] Last Admin: 07/14/20 08:51 Dose: 10 mg Documented by: Dextrose/Water (Dextrose 50% In Water) 50 ml IV ASDIRECTED PRN PRN Reason: Hypoglycemia Last Admin: 07/13/20 11:11 Dose: 50 ml Documented by: Diphenhydramine HCl (Benadryl) 25 mg IVPUSH Q4H PRN PRN Reason: Agitation Doxazosin Mesylate (Cardura) 8 mg PO BEDTIME ON LICENSE OF [facility] Last Admin: 07/13/20 20:06 Dose: 8 mg Documented by: Glucagon (Glucagen) 1 mg IM ASDIRECTED PRN PRN Reason: Hypoglycemia Haloperidol Lactate (Haldol) 5 mg IM Q4H PRN PRN Reason: Agitation Hydralazine HCl (Apresoline) 50 mg PO Q8H ON LICENSE OF [facility] Last Admin: 07/14/20 11:31 Dose: 50 mg Documented by: Hydromorphone HCl (Dilaudid) 1 mg IVPUSH Q3H PRN PRN Reason: Pain (severe 7-10) Last Admin: 10/31/20 11:32 Dose: 1 mg Documented by: Lactated Ringer's (Ringers, Lactated) 1,000 mls @ 125 mls/hr IV ASDIRECTED MICHAEL Last Admin: 07/14/20 09:09 Dose: 125 mls/hr Documented by: Pantoprazole Sodium 40 mg/ (Sodium Chloride) 10 mls @ 300 mls/hr IV BID MICHAEL Last Admin: 07/14/20 08:47 Dose: 300 mls/hr Documented by: Nitroglycerin/Dextrose (Nitroglycerin 25 Mg/D5w 250 Ml) 25 mg in 250 mls @ 3 mls/hr IV TITRATE MICHAEL; Protocol Last Titration: 07/11/20 16:18 Dose: 0 mcg/min, 0 mls/hr Documented by: Insulin Aspart (Novolog) 0 unit SUBCUT Q6H MICHAEL; Protocol Last Admin: 07/14/20 09:03 Dose: Not Given Documented by: Insulin Glargine (Lantus Solostar) 20 units SUBCUT BEDTIME ON LICENSE OF [facility] Last Admin: 07/13/20 20:07 Dose: 20 unit Documented by: Labetalol HCl (Normodyne) 20 mg IVPUSH Q6H PRN; Protocol PRN Reason: Hypertension Last Admin: 07/13/20 00:53 Dose: 20 mg Documented by: Metoprolol Succinate (Toprol Xl) 200 mg PO DAILY ON LICENSE OF [facility] Last Admin: 07/14/20 08:50 Dose: 200 mg Documented by: Ondansetron HCl (Zofran) 4 mg IVPUSH Q4H PRN PRN Reason: Nausea/Vomiting Promethazine HCl (Phenergan) 12.5 mg IM Q4H PRN PRN Reason: Nausea/Vomiting Last Admin: 07/13/20 10:11 Dose: 12.5 mg Documented by: Sodium Chloride (Saline Flush) 10 ml FLUSH ASDIRECTED PRN PRN Reason: Keep Vein Open Last Admin: 07/11/20 09:01 Dose: 10 ml Documented by: Sodium Chloride (Saline Flush) 2.5 ml FLUSH ASDIRECTED PRN PRN Reason: Keep Vein Open Last Admin: 07/12/20 13:30 Dose: 2.5 ml Documented by: Sodium Chloride ([place] Nasal [place]) 1 ml CORNELIUS Q2H PRN PRN Reason: Congestion Last Admin: 07/13/20 07:25 Dose: 1 spray Documented by: Discontinued Medications Amlodipine Besylate (Norvasc) 10 mg PO ONETIME ONE Stop: 07/11/20 10:46 Last Admin: 07/11/20 10:58 Dose: 10 mg Documented by: Dextrose/Water (Dextrose 50% In Water) 50 ml IV ASDIRECTED PRN PRN Reason: Hypoglycemia Dextrose/Water (Dextrose 50% In Water) 50 ml IVPUSH ONETIME ONE Stop: 07/11/20 19:22 Last Admin: 07/11/20 19:26 Dose: 50 ml Documented by: Dextrose/Water (Dextrose 50% In Water) Confirm Administered Dose 50 ml .ROUTE .STK-MED ONE Stop: 07/11/20 19:22 Last Admin: 07/11/20 20:21 Dose: Not Given Documented by: Dextrose/Water (Dextrose 50% In Water) 50 ml IVPUSH ONETIME ONE Stop: 07/12/20 08:31 Last Admin: 07/12/20 09:37 Dose: Not Given Documented by: Diphenhydramine HCl (Benadryl) 25 mg IVPUSH ONETIME ONE Stop: 07/11/20 08:52 Last Admin: 07/11/20 09:01 Dose: 25 mg Documented by: Glucagon (Glucagen) 1 mg IM ASDIRECTED PRN PRN Reason: Hypoglycemia Haloperidol Lactate (Haldol) 5 mg IM ONETIME ONE Stop: 07/11/20 08:50 Last Admin: 07/11/20 09:00 Dose: 5 mg Documented by: Hydralazine HCl (Apresoline) 10 mg IVPUSH ONETIME ONE Stop: 07/11/20 09:41 Last Admin: 07/11/20 10:04 Dose: 10 mg Documented by: Hydralazine HCl (Apresoline) 25 mg PO TID MICHAEL Hydralazine HCl (Apresoline) 25 mg PO TID MICHAEL Last Admin: 07/11/20 16:20 Dose: Not Given Documented by: Hydralazine HCl (Apresoline) 25 mg PO TID MICHAEL Last Admin: 07/12/20 08:02 Dose: Not Given Documented by: Hydralazine HCl (Apresoline) Confirm Administered Dose 20 mg .ROUTE .STK-MED ONE Stop: 07/12/20 06:56 Last Admin: 07/12/20 07:02 Dose: Not Given Documented by: Hydralazine HCl (Apresoline) Confirm Administered Dose 25 mg .ROUTE .STK-MED ONE Stop: 07/12/20 07:00 Last Admin: 07/12/20 07:56 Dose: Not Given Documented by: Hydromorphone HCl (Dilaudid) 1 mg IVPUSH ONETIME ONE Stop: 07/11/20 10:46 Last Admin: 07/11/20 10:58 Dose: 1 mg Documented by: Hydromorphone HCl (Dilaudid) 1 mg IVPUSH Q4H PRN PRN Reason: Pain (severe 7-10) Hydromorphone HCl (Dilaudid) 1 mg IVPUSH Q4H PRN PRN Reason: Pain (severe 7-10) Last Admin: 07/11/20 23:31 Dose: 1 mg Documented by: Hydromorphone HCl (Dilaudid) 1 mg IVPUSH ONETIME ONE Stop: 07/11/20 15:57 Last Admin: 07/11/20 16:10 Dose: 1 mg Documented by: Sodium Chloride (Normal Saline) 1,000 mls @ 999 mls/hr IV .Bolus ONE Stop: 07/11/20 09:55 Last Admin: 07/11/20 09:00 Dose: 999 mls/hr Documented by: Sodium Chloride (Normal Saline) 1,000 mls @ 999 mls/hr IV .BOLUS ONE Stop: 07/11/20 12:37 Last Admin: 07/11/20 11:49 Dose: 999 mls/hr Documented by: Nitroglycerin/Dextrose (Nitroglycerin 25 Mg/D5w 250 Ml) Confirm Administered Dose 25 mg in 250 mls @ as directed .ROUTE .STK-MED ONE Stop: 07/11/20 16:12 Last Admin: 07/11/20 16:19 Dose: Not Given Documented by: Magnesium Sulfate (Magnesium Sulfate In Water Premix) 2 gm in 50 mls @ 50 mls/hr IV ONETIME ONE Stop: 07/13/20 10:44 Last Admin: 07/13/20 10:12 Dose: 50 mls/hr Documented by: Insulin Human Regular (Novolin R) 15 unit SUBCUT ONETIME ONE; Protocol Stop: 07/11/20 13:51 Last Admin: 07/11/20 14:00 Dose: 15 units Documented by: Insulin Human Regular (Novolin R) 10 unit SUBCUT ONETIME ONE; Protocol Stop: 07/11/20 14:43 Last Admin: 07/11/20 14:57 Dose: 10 units Documented by: Labetalol HCl (Normodyne) 20 mg IVPUSH ONETIME ONE; Protocol Stop: 07/11/20 11:55 Last Admin: 07/11/20 12:33 Dose: 20 mg Documented by: Labetalol HCl (Normodyne) 20 mg IVPUSH ONETIME ONE; Protocol Stop: 07/11/20 13:44 Last Admin: 07/11/20 14:02 Dose: 20 mg Documented by: Labetalol HCl (Normodyne) 40 mg IVPUSH ONETIME ONE; Protocol Stop: 07/11/20 15:48 Last Admin: 07/11/20 16:11 Dose: Not Given Documented by: - Exam General: Alert, Oriented, No Acute Distress Lungs: Clear to Auscultation, Normal Respiratory Effort Cardiovascular: Regular Rate, Regular Rhythm GI/Abdominal Exam: Normal Bowel Sounds, Soft, Non-Tender Sepsis Event Note - Evaluation Sepsis Screening Result: No Definite Risk - Focused Exam Vital Signs: Vital Signs Temp Pulse Resp BP BP Pulse Ox 07/14/20 11:42 37.4 C 16 157/94 H 95 07/14/20 11:31 157/94 H 07/14/20 08:51 157/96 H 07/14/20 08:50 89 157/96 H 07/14/20 08:00 37 C 18 157/96 H 96 07/14/20 04:17 155/89 H 07/14/20 04:00 37.1 C 19 155/89 H 96 - Problem List & Annotations (1) Chronic renal insufficiency SNOMED Code(s): 957193678 Code(s): N18.9 - CHRONIC KIDNEY DISEASE, UNSPECIFIED Status: Chronic Current Visit: No (2) Uncontrolled diabetes mellitus SNOMED Code(s): 92813234, 157501215 Code(s): E11.65 - TYPE 2 DIABETES MELLITUS WITH HYPERGLYCEMIA Status: Acute Current Visit: No (3) Abdominal pain SNOMED Code(s): 29270146 Code(s): R10.9 - UNSPECIFIED ABDOMINAL PAIN Status: Acute Priority: High Current Visit: No Qualifiers: Abdominal location: generalized Qualified Code(s): R10.84 - Generalized abdominal pain (4) Hypertension SNOMED Code(s): 44396786 Code(s): I10 - ESSENTIAL (PRIMARY) HYPERTENSION Status: Chronic Current Visit: No Qualifiers: Hypertension type: essential hypertension Qualified Code(s): I10 - Essential (primary) hypertension (5) Intractable nausea and vomiting SNOMED Code(s): 128221380 Code(s): R11.2 - NAUSEA WITH VOMITING, UNSPECIFIED Status: Acute Priority: High Current Visit: No (6) S/P BKA (below knee amputation) unilateral SNOMED Code(s): 281180840, 40875557, 109014202 Code(s): Z89.519 - ACQUIRED ABSENCE OF UNSPECIFIED LEG BELOW KNEE Status: Chronic Priority: Medium Current Visit: No - Problem List Review Problem List Initiated/Reviewed/Updated: Yes - My Orders Last 24 Hours: My Active Orders 07/14/20 Lunch [employer] Diet [DIET] 07/14/20 12:18 RED BLOOD CELLS LP [BBK] Routine TYPE AND SCREEN [BBK] Routine 07/14/20 12:19 Transfuse RBC [Transfuse Red Blood Cells] [COMM] Routine - Plan Plan:: 35 y/o M admitted for Hypertensive emergency, uncontrolled DM, N/V Abdominal pain Pt is also COVID positive without an respiratory symptoms HTN is better controlled, cont hydralazine, resume home meds upon dc OTILIA over CKD, creatinine is improving, back to baseline HB has dropped, no active bleeding, will transfuse 1 unit prbc t keep Hb>8.0 Cont IV PPI Cont Dilaudid as needed Wants to eat this afternoon, pain is better Patient keen to go home today
[2020-07-14] MEDS ORDERED: Glucagon,Human Recombinant 1 MG Vial IM PRN (13:05)
[2020-07-14] MEDS ORDERED: 50% Dextrose in Water 50 ML Syringe IV PRN (13:05)
[2020-07-14 17:34] VITALS: BP 146/98; PULSE 82
--- NOTE | 2020-07-14 18:12 | PCM.DCSUM1 ---
Discharge Summary - Discharge Data Discharge Disposition: Home, Self-Care 01 Condition: Stable - Referral to Home Health Primary Care Physician: PCP None - Discharge Diagnosis/Problem(s) (1) Chronic renal insufficiency SNOMED Code(s): 331148616 ICD Code: N18.9 - CHRONIC KIDNEY DISEASE, UNSPECIFIED Status: Chronic Current Visit: No (2) Uncontrolled diabetes mellitus SNOMED Code(s): 42233046, 768337210 ICD Code: E11.65 - TYPE 2 DIABETES MELLITUS WITH HYPERGLYCEMIA Status: Acute Current Visit: No (3) Abdominal pain SNOMED Code(s): 70201974 ICD Code: R10.9 - UNSPECIFIED ABDOMINAL PAIN Status: Acute Priority: High Current Visit: No Qualifiers: Abdominal location: generalized Qualified Code(s): R10.84 - Generalized abdominal pain (4) Hypertension SNOMED Code(s): 73694956 ICD Code: I10 - ESSENTIAL (PRIMARY) HYPERTENSION Status: Chronic Current Visit: No Qualifiers: Hypertension type: essential hypertension Qualified Code(s): I10 - Essential (primary) hypertension (5) Intractable nausea and vomiting SNOMED Code(s): 311344775 ICD Code: R11.2 - NAUSEA WITH VOMITING, UNSPECIFIED Status: Acute Priority: High Current Visit: No (6) S/P BKA (below knee amputation) unilateral SNOMED Code(s): 457009191, 65279681, 632646308 ICD Code: Z89.519 - ACQUIRED ABSENCE OF UNSPECIFIED LEG BELOW KNEE Status: Chronic Priority: Medium Current Visit: No - Discharge Plan *PRESCRIPTION DRUG MONITORING PROGRAM REVIEWED*: Not Applicable *COPY OF PRESCRIPTION DRUG MONITORING REPORT IN PATIENT IVELISSE: Not Applicable Home Medications: Home Meds Doxazosin [Cardura] 8 mg PO BEDTIME 09/29/19 [History] Metoprolol Succinate 200 mg PO DAILY 09/29/19 [History] Torsemide 20 mg PO BID 09/29/19 [History] atorvaSTATin [Lipitor] 80 mg PO BEDTIME 09/29/19 [History] Insulin Aspart [NovoLOG] 0 unit SUBCUT .UP TO 60 UN DAILY 09/30/19 [History] Metoclopramide [Reglan] 5 mg PO TIDAC #90 tablet 10/10/19 [Rx] Aspirin [Adult Low Dose Aspirin EC] 81 mg PO DAILY 12/07/19 [History] Enalapril Maleate 20 mg PO DAILY 12/07/19 [History] Insulin Glarg,Human.Rec.Analog [Lantus] 38 mg SUBCUT BEDTIME 12/07/19 [History] Iron Ag,Ps/C/Fa6/B12/Zn/SA/Sto [Niferex Tablet] 150 mg PO BID 12/07/19 [History] Sertraline [Zoloft] 50 mg PO DAILY 12/07/19 [History] Spironolactone [Aldactone] 25 mg PO BID 12/07/19 [History] Sucralfate 1 gm PO QIDACANDBED 12/07/19 [History] amLODIPine Besylate [Amlodipine Besylate] 10 mg PO DAILY 12/07/19 [History] hydrALAZINE [Apresoline] 25 mg PO TID 12/07/19 [History] hydroCHLOROthiazide [Hydrochlorothiazide] 25 mg PO DAILY 12/07/19 [History] Ondansetron [Zofran ODT] 4 mg PO Q8H PRN 04/12/20 [History] Pantoprazole Sodium [Protonix] 40 mg PO DAILY 30 Days #30 suspdr.pkt 05/31/20 [Rx] Furosemide 40 mg PO BID 07/11/20 [History] Forms: ED Department Discharge Referrals: PCP,None [Primary Care Provider] - - Patient Data Vitals - Most Recent: Last Vital Signs Temp 37 C 07/14/20 17:30 Pulse 82 07/14/20 17:30 Resp 18 07/14/20 17:30 BP 146/98 H 07/14/20 17:30 Pulse Ox 96 07/14/20 17:30 Weight - Most Recent: 72.575 kg I&O - Last 24 hours: Intake & Output 07/14/20 07/14/20 07/14/20 06:59 14:59 22:59 Intake Total 2290 0 1062 Output Total 1460 Balance 830 0 1062 Lab Results - Last 24 hrs: Laboratory Results - last 24 hr 07/13/20 07/14/20 07/14/20 Range/Units 19:07 00:56 05:30 WBC 5.25 (4.0-11.0) K/uL RBC 3.53 L (4.50-5.90) M/uL Hgb 7.7 L (13.0-17.0) g/dL Hct 24.2 L (38.0-50.0) % MCV 68.6 L (80.0-98.0) fL MCH 21.8 L (27.0-32.0) pg MCHC 31.8 (31.0-37.0) g/dL RDW Std Deviation 42.8 (28.0-62.0) fl RDW Coeff of Dania 17 H (11.0-15.0) % Plt Count 227 (150-400) K/uL MPV 10.10 (7.40-12.00) fL Neut % (Auto) 62.5 (48.0-80.0) % Lymph % (Auto) 25.1 (16.0-40.0) % [place] % (Auto) 11.6 (0.0-15.0) % Eos % (Auto) 0.4 (0.0-7.0) % Baso % (Auto) 0.4 (0.0-1.5) % Neut # (Auto) 3.3 (1.4-5.7) K/uL Lymph # (Auto) 1.3 (0.6-2.4) K/uL [place] # (Auto) 0.6 (0.0-0.8) K/uL Eos # (Auto) 0.0 (0.0-0.7) K/uL Baso # (Auto) 0.0 (0.0-0.1) K/uL Nucleated RBC % 0.0 /100WBC Nucleated RBCs # 0 K/uL Sodium (136-148) mmol/L Potassium (3.5-5.1) mmol/L Chloride (98-107) mmol/L Carbon Dioxide (21.0-32.0) mmol/L BUN (7.0-18.0) mg/dL Creatinine (0.8-1.3) mg/dL Est Cr Clr Drug Dosing mL/min Estimated GFR (MDRD) ml/min Glucose (74-106) mg/dL POC Glucose 150 H 53 L (60-110) mg/dL Calcium (8.5-10.1) mg/dL Phosphorus (2.6-4.7) mg/dL Magnesium (1.8-2.4) mg/dL Total Bilirubin (0.2-1.0) mg/dL AST (15-37) IU/L ALT (14-63) IU/L Alkaline Phosphatase (46-116) U/L Total Protein (6.4-8.2) g/dL Albumin (3.4-5.0) g/dL Globulin (2.6-4.0) g/dL Albumin/Globulin Ratio (0.9-1.6) Blood Type Antibody Screen Crossmatch 07/14/20 07/14/20 07/14/20 Range/Units 05:30 08:40 09:11 WBC (4.0-11.0) K/uL RBC (4.50-5.90) M/uL Hgb (13.0-17.0) g/dL Hct (38.0-50.0) % MCV (80.0-98.0) fL MCH (27.0-32.0) pg MCHC (31.0-37.0) g/dL RDW Std Deviation (28.0-62.0) fl RDW Coeff of Dania (11.0-15.0) % Plt Count (150-400) K/uL MPV (7.40-12.00) fL Neut % (Auto) (48.0-80.0) % Lymph % (Auto) (16.0-40.0) % [place] % (Auto) (0.0-15.0) % Eos % (Auto) (0.0-7.0) % Baso % (Auto) (0.0-1.5) % Neut # (Auto) (1.4-5.7) K/uL Lymph # (Auto) (0.6-2.4) K/uL [place] # (Auto) (0.0-0.8) K/uL Eos # (Auto) (0.0-0.7) K/uL Baso # (Auto) (0.0-0.1) K/uL Nucleated RBC % /100WBC Nucleated RBCs # K/uL Sodium 136 (136-148) mmol/L Potassium 4.2 (3.5-5.1) mmol/L Chloride 105 (98-107) mmol/L Carbon Dioxide 24.3 (21.0-32.0) mmol/L BUN 29 H (7.0-18.0) mg/dL Creatinine 3.4 H (0.8-1.3) mg/dL Est Cr Clr Drug Dosing 31.43 mL/min Estimated GFR (MDRD) 25.3 ml/min Glucose 86 (74-106) mg/dL POC Glucose 47 L 98 (60-110) mg/dL Calcium 7.3 L (8.5-10.1) mg/dL Phosphorus 4.5 (2.6-4.7) mg/dL Magnesium 1.9 (1.8-2.4) mg/dL Total Bilirubin 0.1 L (0.2-1.0) mg/dL AST 37 (15-37) IU/L ALT 21 (14-63) IU/L Alkaline Phosphatase 62 (46-116) U/L Total Protein 4.7 L (6.4-8.2) g/dL Albumin 1.8 L (3.4-5.0) g/dL Globulin 2.9 (2.6-4.0) g/dL Albumin/Globulin Ratio 0.6 L (0.9-1.6) Blood Type Antibody Screen Crossmatch 07/14/20 07/14/20 07/14/20 Range/Units 11:39 12:39 13:18 WBC (4.0-11.0) K/uL RBC (4.50-5.90) M/uL Hgb (13.0-17.0) g/dL Hct (38.0-50.0) % MCV (80.0-98.0) fL MCH (27.0-32.0) pg MCHC (31.0-37.0) g/dL RDW Std Deviation (28.0-62.0) fl RDW Coeff of Dania (11.0-15.0) % Plt Count (150-400) K/uL MPV (7.40-12.00) fL Neut % (Auto) (48.0-80.0) % Lymph % (Auto) (16.0-40.0) % [place] % (Auto) (0.0-15.0) % Eos % (Auto) (0.0-7.0) % Baso % (Auto) (0.0-1.5) % Neut # (Auto) (1.4-5.7) K/uL Lymph # (Auto) (0.6-2.4) K/uL [place] # (Auto) (0.0-0.8) K/uL Eos # (Auto) (0.0-0.7) K/uL Baso # (Auto) (0.0-0.1) K/uL Nucleated RBC % /100WBC Nucleated RBCs # K/uL Sodium (136-148) mmol/L Potassium (3.5-5.1) mmol/L Chloride (98-107) mmol/L Carbon Dioxide (21.0-32.0) mmol/L BUN (7.0-18.0) mg/dL Creatinine (0.8-1.3) mg/dL Est Cr Clr Drug Dosing mL/min Estimated GFR (MDRD) ml/min Glucose (74-106) mg/dL POC Glucose 72 40 L (60-110) mg/dL Calcium (8.5-10.1) mg/dL Phosphorus (2.6-4.7) mg/dL Magnesium (1.8-2.4) mg/dL Total Bilirubin (0.2-1.0) mg/dL AST (15-37) IU/L ALT (14-63) IU/L Alkaline Phosphatase (46-116) U/L Total Protein (6.4-8.2) g/dL Albumin (3.4-5.0) g/dL Globulin (2.6-4.0) g/dL Albumin/Globulin Ratio (0.9-1.6) Blood Type O POSITIVE Antibody Screen NEGATIVE Crossmatch See Detail 07/14/20 07/14/20 Range/Units 17:27 17:58 WBC (4.0-11.0) K/uL RBC (4.50-5.90) M/uL Hgb (13.0-17.0) g/dL Hct (38.0-50.0) % MCV (80.0-98.0) fL MCH (27.0-32.0) pg MCHC (31.0-37.0) g/dL RDW Std Deviation (28.0-62.0) fl RDW Coeff of Dania (11.0-15.0) % Plt Count (150-400) K/uL MPV (7.40-12.00) fL Neut % (Auto) (48.0-80.0) % Lymph % (Auto) (16.0-40.0) % [place] % (Auto) (0.0-15.0) % Eos % (Auto) (0.0-7.0) % Baso % (Auto) (0.0-1.5) % Neut # (Auto) (1.4-5.7) K/uL Lymph # (Auto) (0.6-2.4) K/uL [place] # (Auto) (0.0-0.8) K/uL Eos # (Auto) (0.0-0.7) K/uL Baso # (Auto) (0.0-0.1) K/uL Nucleated RBC % /100WBC Nucleated RBCs # K/uL Sodium (136-148) mmol/L Potassium (3.5-5.1) mmol/L Chloride (98-107) mmol/L Carbon Dioxide (21.0-32.0) mmol/L BUN (7.0-18.0) mg/dL Creatinine (0.8-1.3) mg/dL Est Cr Clr Drug Dosing mL/min Estimated GFR (MDRD) ml/min Glucose (74-106) mg/dL POC Glucose 47 L 53 L (60-110) mg/dL Calcium (8.5-10.1) mg/dL Phosphorus (2.6-4.7) mg/dL Magnesium (1.8-2.4) mg/dL Total Bilirubin (0.2-1.0) mg/dL AST (15-37) IU/L ALT (14-63) IU/L Alkaline Phosphatase (46-116) U/L Total Protein (6.4-8.2) g/dL Albumin (3.4-5.0) g/dL Globulin (2.6-4.0) g/dL Albumin/Globulin Ratio (0.9-1.6) Blood Type Antibody Screen Crossmatch Med Orders - Current: Current Medications Albuterol/Ipratropium (Duoneb 3.0-0.5 Mg/3 Ml) 3 ml NEB Q4HRRT PRN PRN Reason: Shortness Of Breath/wheezing Amlodipine Besylate (Norvasc) 10 mg PO DAILY MICHAEL Last Admin: 07/14/20 08:51 Dose: 10 mg Documented by: Dextrose/Water (Dextrose 50% In Water) 50 ml IV ASDIRECTED PRN PRN Reason: Hypoglycemia Last Admin: 07/13/20 11:11 Dose: 50 ml Documented by: Dextrose/Water (Dextrose 50% In Water) 50 ml IV ASDIRECTED PRN PRN Reason: Hypoglycemia Diphenhydramine HCl (Benadryl) 25 mg IVPUSH Q4H PRN PRN Reason: Agitation Doxazosin Mesylate (Cardura) 8 mg PO BEDTIME MICHAEL Last Admin: 07/13/20 20:06 Dose: 8 mg Documented by: Glucagon (Glucagen) 1 mg IM ASDIRECTED PRN PRN Reason: Hypoglycemia Glucagon (Glucagen) 1 mg IM ASDIRECTED PRN PRN Reason: Hypoglycemia Haloperidol Lactate (Haldol) 5 mg IM Q4H PRN PRN Reason: Agitation Hydralazine HCl (Apresoline) 50 mg PO Q8H MICHAEL Last Admin: 07/14/20 11:31 Dose: 50 mg Documented by: Hydromorphone HCl (Dilaudid) 1 mg IVPUSH Q3H PRN PRN Reason: Pain (severe 7-10) Last Admin: 07/14/20 16:28 Dose: 1 mg Documented by: Lactated Ringer's (Ringers, Lactated) 1,000 mls @ 125 mls/hr IV ASDIRECTED MICHAEL Last Admin: 07/14/20 09:09 Dose: 125 mls/hr Documented by: Pantoprazole Sodium 40 mg/ (Sodium Chloride) 10 mls @ 300 mls/hr IV BID [facility] Last Admin: 07/14/20 08:47 Dose: 300 mls/hr Documented by: Nitroglycerin/Dextrose (Nitroglycerin 25 Mg/D5w 250 Ml) 25 mg in 250 mls @ 3 mls/hr IV TITRATE [facility]; Protocol Last Titration: 07/11/20 16:18 Dose: 0 mcg/min, 0 mls/hr Documented by: Insulin Aspart (Novolog) 0 unit SUBCUT TIDAC [facility]; Protocol Last Admin: 07/14/20 17:36 Dose: Not Given Documented by: Insulin Glargine (Lantus Solostar) 20 units SUBCUT BEDTIME [facility] Last Admin: 07/13/20 20:07 Dose: 20 unit Documented by: Labetalol HCl (Normodyne) 20 mg IVPUSH Q6H PRN; Protocol PRN Reason: Hypertension Last Admin: 07/13/20 00:53 Dose: 20 mg Documented by: Metoprolol Succinate (Toprol Xl) 200 mg PO DAILY MICHAEL Last Admin: 07/14/20 08:50 Dose: 200 mg Documented by: Ondansetron HCl (Zofran) 4 mg IVPUSH Q4H PRN PRN Reason: Nausea/Vomiting Promethazine HCl (Phenergan) 12.5 mg IM Q4H PRN PRN Reason: Nausea/Vomiting Last Admin: 07/13/20 10:11 Dose: 12.5 mg Documented by: Sodium Chloride (Saline Flush) 10 ml FLUSH ASDIRECTED PRN PRN Reason: Keep Vein Open Last Admin: 07/11/20 09:01 Dose: 10 ml Documented by: Sodium Chloride (Saline Flush) 2.5 ml FLUSH ASDIRECTED PRN PRN Reason: Keep Vein Open Last Admin: 07/12/20 13:30 Dose: 2.5 ml Documented by: Sodium Chloride ([place] Nasal [place]) 1 ml CORNELIUS Q2H PRN PRN Reason: Congestion Last Admin: 07/13/20 07:25 Dose: 1 spray Documented by: Discontinued Medications Amlodipine Besylate (Norvasc) 10 mg PO ONETIME ONE Stop: 07/11/20 10:46 Last Admin: 07/11/20 10:58 Dose: 10 mg Documented by: Dextrose/Water (Dextrose 50% In Water) 50 ml IV ASDIRECTED PRN PRN Reason: Hypoglycemia Dextrose/Water (Dextrose 50% In Water) 50 ml IVPUSH ONETIME ONE Stop: 07/11/20 19:22 Last Admin: 07/11/20 19:26 Dose: 50 ml Documented by: Dextrose/Water (Dextrose 50% In Water) Confirm Administered Dose 50 ml .ROUTE .STK-MED ONE Stop: 07/11/20 19:22 Last Admin: 07/11/20 20:21 Dose: Not Given Documented by: Dextrose/Water (Dextrose 50% In Water) 50 ml IVPUSH ONETIME ONE Stop: 07/12/20 08:31 Last Admin: 07/12/20 09:37 Dose: Not Given Documented by: Diphenhydramine HCl (Benadryl) 25 mg IVPUSH ONETIME ONE Stop: 07/11/20 08:52 Last Admin: 07/11/20 09:01 Dose: 25 mg Documented by: Glucagon (Glucagen) 1 mg IM ASDIRECTED PRN PRN Reason: Hypoglycemia Haloperidol Lactate (Haldol) 5 mg IM ONETIME ONE Stop: 07/11/20 08:50 Last Admin: 07/11/20 09:00 Dose: 5 mg Documented by: Hydralazine HCl (Apresoline) 10 mg IVPUSH ONETIME ONE Stop: 07/11/20 09:41 Last Admin: 07/11/20 10:04 Dose: 10 mg Documented by: Hydralazine HCl (Apresoline) 25 mg PO TID MICHAEL Hydralazine HCl (Apresoline) 25 mg PO TID MICHAEL Last Admin: 07/11/20 16:20 Dose: Not Given Documented by: Hydralazine HCl (Apresoline) 25 mg PO TID MICHAEL Last Admin: 07/12/20 08:02 Dose: Not Given Documented by: Hydralazine HCl (Apresoline) Confirm Administered Dose 20 mg .ROUTE .STK-MED ONE Stop: 07/12/20 06:56 Last Admin: 07/12/20 07:02 Dose: Not Given Documented by: Hydralazine HCl (Apresoline) Confirm Administered Dose 25 mg .ROUTE .STK-MED ONE Stop: 07/12/20 07:00 Last Admin: 07/12/20 07:56 Dose: Not Given Documented by: Hydromorphone HCl (Dilaudid) 1 mg IVPUSH ONETIME ONE Stop: 07/11/20 10:46 Last Admin: 07/11/20 10:58 Dose: 1 mg Documented by: Hydromorphone HCl (Dilaudid) 1 mg IVPUSH Q4H PRN PRN Reason: Pain (severe 7-10) Hydromorphone HCl (Dilaudid) 1 mg IVPUSH Q4H PRN PRN Reason: Pain (severe 7-10) Last Admin: 07/11/20 23:31 Dose: 1 mg Documented by: Hydromorphone HCl (Dilaudid) 1 mg IVPUSH ONETIME ONE Stop: 07/11/20 15:57 Last Admin: 07/11/20 16:10 Dose: 1 mg Documented by: Sodium Chloride (Normal Saline) 1,000 mls @ 999 mls/hr IV .Bolus ONE Stop: 07/11/20 09:55 Last Admin: 07/11/20 09:00 Dose: 999 mls/hr Documented by: Sodium Chloride (Normal Saline) 1,000 mls @ 999 mls/hr IV .BOLUS ONE Stop: 07/11/20 12:37 Last Admin: 07/11/20 11:49 Dose: 999 mls/hr Documented by: Nitroglycerin/Dextrose (Nitroglycerin 25 Mg/D5w 250 Ml) Confirm Administered Dose 25 mg in 250 mls @ as directed .ROUTE .STK-MED ONE Stop: 07/11/20 16:12 Last Admin: 07/11/20 16:19 Dose: Not Given Documented by: Magnesium Sulfate (Magnesium Sulfate In Water Premix) 2 gm in 50 mls @ 50 mls/hr IV ONETIME ONE Stop: 07/13/20 10:44 Last Admin: 07/13/20 10:12 Dose: 50 mls/hr Documented by: Insulin Aspart (Novolog) 0 unit SUBCUT Q6H MICHAEL; Protocol Last Admin: 07/14/20 13:41 Dose: Not Given Documented by: Insulin Human Regular (Novolin R) 15 unit SUBCUT ONETIME ONE; Protocol Stop: 07/11/20 13:51 Last Admin: 07/11/20 14:00 Dose: 15 units Documented by: Insulin Human Regular (Novolin R) 10 unit SUBCUT ONETIME ONE; Protocol Stop: 07/11/20 14:43 Last Admin: 07/11/20 14:57 Dose: 10 units Documented by: Labetalol HCl (Normodyne) 20 mg IVPUSH ONETIME ONE; Protocol Stop: 07/11/20 11:55 Last Admin: 07/11/20 12:33 Dose: 20 mg Documented by: Labetalol HCl (Normodyne) 20 mg IVPUSH ONETIME ONE; Protocol Stop: 07/11/20 13:44 Last Admin: 07/11/20 14:02 Dose: 20 mg Documented by: Labetalol HCl (Normodyne) 40 mg IVPUSH ONETIME ONE; Protocol Stop: 07/11/20 15:48 Last Admin: 07/11/20 16:11 Dose: Not Given Documented by:
== END 2020-07-14 18:55 | disposition home or self-care (01) | DRG 682 ==
LOC: MW.ED 08:44 → MW.ICU 11:56
PROVIDERS: ADMIT Student in an Organized Health Care Education/Training Program; ATTEND Student in an Organized Health Care Education/Training Program
DX: N17.9 Acute kidney failure, unspecified (principal); I16.0 Hypertensive urgency; U07.1 COVID-19; I16.1 Hypertensive emergency; E10.43 Type 1 diabetes mellitus with diabetic autonomic (poly)neuropathy; K31.84 Gastroparesis; H54.61 Unqualified visual loss, right eye, normal vision left eye; H54.7 Unspecified visual loss; I10 Essential (primary) hypertension; K21.9 Gastro-esophageal reflux disease without esophagitis; K44.9 Diaphragmatic hernia without obstruction or gangrene; E10.22 Type 1 diabetes mellitus with diabetic chronic kidney disease; E10.65 Type 1 diabetes mellitus with hyperglycemia; E87.5 Hyperkalemia; D63.1 Anemia in chronic kidney disease; I12.9 Hypertensive chronic kidney disease with stage 1 through stage 4 chronic kidney disease, or unspecified chronic kidney disease; N18.9 Chronic kidney disease, unspecified; E10.42 Type 1 diabetes mellitus with diabetic polyneuropathy; E10.21 Type 1 diabetes mellitus with diabetic nephropathy; Z89.519 Acquired absence of unspecified leg below knee; Z86.19 Personal history of other infectious and parasitic diseases; Z91.09 Other allergy status, other than to drugs and biological substances; D64.9 Anemia, unspecified; Z91.02 Food additives allergy status; Z88.0 Allergy status to penicillin; Z91.013 Allergy to seafood; Z79.82 Long term (current) use of aspirin; Z79.4 Long term (current) use of insulin; Z79.899 Other long term (current) drug therapy
CPT/HCPCS: 36415; 71045; 80053; 83690; 83735; 84100; 85025; 96372; 96374; 96375; 99291; A9270; J0360; J1170; J1200; J1630; J7030 ×2; 36430; 80048; 82803; 82962; 85014; 85018; 85027; 86850; 86900; 86901; 86920; 86921; 86922; 93005; C9113; J1815-GY; J2550; J3475; J3490; J7120; P9016; U0002

== ENCOUNTER 2020-07-16 09:48 | Emergency (ER) | payer MEDICARE, MEDICAID ==
[2020-07-16] MEDS ORDERED: Pantoprazole 40 MG in Sodium Chloride 0.9% 10 ML IV ONE (09:49)
[2020-07-16] MEDS ORDERED: Haloperidol Lactate 5 MG/ML SDV IM ONE (09:49)
[2020-07-16] MEDS ORDERED: Sodium Chloride 0.9% 10 ML Syringe FLUSH PRN (09:49)
[2020-07-16] MEDS ORDERED: Sodium Chloride 0.9% 2.5 ML Syringe FLUSH PRN (09:49)
[2020-07-16] MEDS ORDERED: Sodium Chloride 0.9% 1,000 ML IV ONE (09:49)
[2020-07-16] MEDS ORDERED: Alum Hydrox/Mag Hydrox/Simeth 15 ML, Lidocaine 2% 5 ML PO ONE ×2 (09:49)
--- NOTE | 2020-07-16 09:53 | EDM.PDOC ---
ED HPI GENERAL MEDICAL PROBLEM - General Stated Complaint: STOMACH PAIN Time Seen by Provider: 07/16/20 09:48 Source of Information: Reports: Patient History Limitations: Reports: No Limitations - History of Present Illness INITIAL COMMENTS - FREE TEXT/NARRATIVE: 35M PMHx HTN, DM, CKD, BKA, Gastroparesis, medication non-compliance, GIB presents for N/V. Patient was discharged from hospital after admit for same yesterday. He states N/V and abdominal pain returned shortly after going home. He notes compliance with his medications. He does note some blood in his emesis. He is difficulty historian 2/2 active retching. He is COVID positive though denies SOB/CP. Abdominal Pain Score (Numeric/FACES): 10 - Related Data Allergies Allergy/AdvReac Type Severity Reaction Status Date / Time shrimp Allergy Severe Swelling Verified 07/16/20 10:02 iodine Allergy Unknown Anaphylactic Verified 07/16/20 10:02 Shock Penicillins Allergy Unknown Anaphylactic Verified 07/16/20 10:02 Shock shellfish derived Allergy Anaphylactic Verified 07/16/20 10:02 Shock gluten Allergy Severe Muscle Uncoded 07/16/20 10:02 Aches Home Meds: Home Meds Doxazosin [Cardura] 8 mg PO BEDTIME 09/29/19 [History] Metoprolol Succinate 200 mg PO DAILY 09/29/19 [History] Torsemide 20 mg PO BID 09/29/19 [History] atorvaSTATin [Lipitor] 80 mg PO BEDTIME 09/29/19 [History] Insulin Aspart [NovoLOG] 0 unit SUBCUT .UP TO 60 UN DAILY 09/30/19 [History] Metoclopramide [Reglan] 5 mg PO TIDAC #90 tablet 10/10/19 [Rx] Aspirin [Adult Low Dose Aspirin EC] 81 mg PO DAILY 12/07/19 [History] Enalapril Maleate 20 mg PO DAILY 12/07/19 [History] Insulin Glarg,Human.Rec.Analog [Lantus] 38 mg SUBCUT BEDTIME 12/07/19 [History] Iron Ag,Ps/C/Fa6/B12/Zn/SA/Sto [Niferex Tablet] 150 mg PO BID 12/07/19 [History] Sertraline [Zoloft] 50 mg PO DAILY 12/07/19 [History] Sucralfate 1 gm PO QIDACANDBED 12/07/19 [History] amLODIPine Besylate [Amlodipine Besylate] 10 mg PO DAILY 12/07/19 [History] hydroCHLOROthiazide [Hydrochlorothiazide] 25 mg PO DAILY 12/07/19 [History] Pantoprazole Sodium [Protonix] 40 mg PO DAILY 30 Days #30 suspdr.pkt 05/31/20 [Rx] hydrALAZINE [Apresoline] 50 mg PO Q8H #60 tablet 07/14/20 [Rx] Past Medical History - Past Health History Medical/Surgical History: Denies Medical/Surgical History HEENT History: Reports: Impaired Vision Other HEENT History: blind right eye Cardiovascular History: Reports: Hypertension Respiratory History: Reports: None Gastrointestinal History: Reports: Gastritis, GERD, Hiatal Hernia, Other (See Below) Other Gastrointestinal History: h/o gastric ulcers, h/o hiatal hernia; gastroparesis Genitourinary History: Reports: Chronic Renal Insuffiency, Diabetic Nephropathy Musculoskeletal History: Reports: Amputation Other Musculoskeletal History: RLE Neurological History: Reports: Neuropathy, Peripheral Other Neuro History: stroke Psychiatric History: Reports: Anxiety Endocrine/Metabolic History: Reports: Diabetes, Type I Other Endocrine/Metabolic History: brittle diabetic. 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 - Past Surgical History Head Surgeries/Procedures: Reports: None HEENT Surgical History: Reports: None Respiratory Surgical History: Reports: None GI Surgical History: Reports: None Male Surgical History: Reports: None Endocrine Surgical History: Reports: None Oncologic Surgical History: Reports: None Dermatological Surgical History: Reports: None Social & Family History - Family History Family Medical History: Noncontributory Cardiac: Reports: High Cholesterol, Hypertension OBGYN: Reports: Neurological: Reports: None Psychiatric: Reports: Anxiety - Caffeine Use Caffeine Use: Reports: None Other Caffeine Use: daily Caffeine Use Comment: patient is uncooperated - Living Situation & Occupation Living situation: Reports: Single Occupation: Employed (Currently unemployed.) ED [facility] GENERAL - Review of Systems Review Of Systems: Comprehensive ROS is negative, except as noted in HPI. ED EXAM, GENERAL - Physical Exam Exam: See Below Exam Limited By: No Limitations General Appearance: Alert, Other (retching throughout exam without active vomiting) Throat/Mouth: Normal Voice, No Airway Compromise Head: Atraumatic, Normocephalic Neck: Normal Inspection Respiratory/Chest: No Respiratory Distress, Lungs Clear, Normal Breath Sounds, No Accessory Muscle Use Cardiovascular: Normal Peripheral Pulses, Tachycardia GI/Abdominal: Soft, Non-Tender Extremities: Normal Inspection Neurological: Alert Psychiatric: Normal Affect, Normal Mood Skin Exam: Warm, Dry, Intact #1 Interpretation EKG Date: 07/16/20 Time: 10:20 Rhythm: Other (sinus tachycardia) Rate (Beats/Min): 111 Armstrong: Normal P-Wave: Present QRS: Normal ST-T: Normal QT: Normal NV/PQ Interval: 149 EKG Interpretation Comments: No evidence of acute ischemia Course - Vital Signs Last Recorded V/S: Last Vital Signs Temp 97.0 F 07/16/20 10:02 Pulse 113 H 07/16/20 10:02 Resp 28 H 07/16/20 10:02 BP 200/128 H 07/16/20 10:02 Pulse Ox 94 L 07/16/20 10:02 - Orders/Labs/Meds Orders: Active Orders 24 hr Category Date Time Status Blood Glucose Check, Bedside [RC] ONETIME Care 07/16/20 09:51 Active Cardiac Monitoring [RC] . DIRECTED Care 07/16/20 09:51 Active EKG Documentation Completion [RC] STAT Care 07/16/20 09:49 Active Pulse Oximetry [RC] ASDIRECTED Care 07/16/20 09:51 Active UA W/FRANTZ RFLX IF INDICATED [URIN] Stat Lab 07/16/20 09:51 Ordered Sodium Chloride 0.9% [Saline Flush] Med 07/16/20 09:49 Active 10 ml FLUSH ASDIRECTED PRN Sodium Chloride 0.9% [Saline Flush] Med 07/16/20 09:49 Active 2.5 ml FLUSH ASDIRECTED PRN Saline Lock Insert [OM.PC] Stat Oth 07/16/20 09:50 Ordered Medication Orders Sodium Chloride (Saline Flush) 10 ml FLUSH ASDIRECTED PRN PRN Reason: Keep Vein Open Last Admin: 07/16/20 10:45 Dose: 10 ml Documented by: [id number] Sodium Chloride (Saline Flush) 2.5 ml FLUSH ASDIRECTED PRN PRN Reason: Keep Vein Open Last Admin: 07/16/20 10:45 Dose: 2.5 ml Documented by: [id number] Labs: Laboratory Tests 07/16/20 07/16/20 07/16/20 Range/Units 11:12 11:12 11:12 WBC 10.01 (4.0-11.0) K/uL RBC 4.77 (4.50-5.90) M/uL Hgb 10.6 L (13.0-17.0) g/dL Hct 33.6 L (38.0-50.0) % MCV 70.4 L (80.0-98.0) fL MCH 22.2 L (27.0-32.0) pg MCHC 31.5 (31.0-37.0) g/dL RDW Std Deviation 45.1 (28.0-62.0) fl RDW Coeff of Dania 18 H (11.0-15.0) % Plt Count 214 (150-400) K/uL MPV 11.00 (7.40-12.00) fL Neut % (Auto) 87.2 H (48.0-80.0) % Lymph % (Auto) 7.6 L (16.0-40.0) % Bremer % (Auto) 4.4 (0.0-15.0) % Eos % (Auto) 0.6 (0.0-7.0) % Baso % (Auto) 0.2 (0.0-1.5) % Neut # (Auto) 8.7 H (1.4-5.7) K/uL Lymph # (Auto) 0.8 (0.6-2.4) K/uL Bremer # (Auto) 0.4 (0.0-0.8) K/uL Eos # (Auto) 0.1 (0.0-0.7) K/uL Baso # (Auto) 0.0 (0.0-0.1) K/uL Nucleated RBC % 0.0 /100WBC Nucleated RBCs # 0 K/uL Lactate 1.3 (0.20-2.00) mmol/L Sodium 140 (136-148) mmol/L Potassium 4.1 (3.5-5.1) mmol/L Chloride 108 H (98-107) mmol/L Carbon Dioxide 19.1 L (21.0-32.0) mmol/L BUN 33 H (7.0-18.0) mg/dL Creatinine 4.0 H (0.8-1.3) mg/dL Est Cr Clr Drug Dosing 26.87 mL/min Estimated GFR (MDRD) 20.9 ml/min Glucose 372 H (74-106) mg/dL Calcium 7.4 L (8.5-10.1) mg/dL Magnesium 1.9 (1.8-2.4) mg/dL Total Bilirubin 0.2 (0.2-1.0) mg/dL AST 36 (15-37) IU/L ALT 22 (14-63) IU/L Alkaline Phosphatase 88 (46-116) U/L Troponin I < 0.050 (0.000-0.056) ng/mL Total Protein 6.0 L (6.4-8.2) g/dL Albumin 2.1 L (3.4-5.0) g/dL Globulin 3.9 (2.6-4.0) g/dL Albumin/Globulin Ratio 0.5 L (0.9-1.6) Lipase 83 (73-393) U/L Ethyl Alcohol < 3.0 mg/dL Meds: Medications Generic Name Dose Route Start Last Admin Trade Name Juan Pabloq PRN Reason Stop Dose Admin Sodium Chloride 10 ml 07/16/20 09:49 07/16/20 10:45 Saline Flush FLUSH 10 ml ASDIRECTED PRN Administration Keep Vein Open Sodium Chloride 2.5 ml 07/16/20 09:49 07/16/20 10:45 Saline Flush FLUSH 2.5 ml ASDIRECTED PRN Administration Keep Vein Open Discontinued Medications Generic Name Dose Route Start Last Admin Trade Name Freq PRN Reason Stop Dose Admin Al Hydroxide/Mg Hydroxide 15 0 ml 07/16/20 09:49 07/16/20 10:44 ml/ Lidocaine HCl 5 ml PO 07/16/20 09:50 1 each ONETIME ONE Administration Haloperidol Lactate 5 mg 07/16/20 09:49 07/16/20 10:44 Haldol IM 07/16/20 09:50 5 mg ONETIME ONE Administration Sodium Chloride 1,000 mls @ 999 mls/hr 07/16/20 09:49 07/16/20 10:46 Normal Saline IV 07/16/20 10:49 999 mls/hr .Bolus ONE Administration Pantoprazole Sodium 40 mg/ 10 mls @ 300 mls/hr 07/16/20 09:49 07/16/20 10:44 Sodium Chloride IV 07/16/20 09:50 300 mls/hr NOW ONE Administration Labetalol HCl 20 mg 07/16/20 10:21 07/16/20 10:47 Normodyne IVPUSH 07/16/20 10:22 20 mg ONETIME ONE Administration Protocol - Re-Assessments/Exams Free Text/Narrative Re-Assessment/Exam: 07/16/20 11:51 Lactate is 1.3 07/16/20 12:19 Labs are not transmitting. They were brought down by lab manually. White blood cell count of 10, hemoglobin of 10, normal sodium, normal potassium, BUN of 33, creatinine of 4.0 (this is consistent with patient's baseline), troponin negative, lipase normal, LFTs normal, alcohol negative. Will reassess patient and disposition accordingly. 07/16/20 13:08 Patient's labs are all within his typical baseline. Patient is feeling better after medications. Will discharge patient home with return precautions for recurrence of symptoms. Departure - Departure Time of Disposition: 13:08 Disposition: Home, Self-Care 01 Condition: Fair Clinical Impression: Gastroparesis - Discharge Information Instructions: Gastroparesis Referrals: PCP,None [Primary Care Provider] - Additional Instructions: The following information is given to patients seen in the emergency department who are being discharged to home. This information is to outline your options for follow-up care. We provide all patients seen in our emergency department with a follow-up referral. The need for follow-up, as well as the timing and circumstances, are variable depending upon the specifics of your emergency department visit. If you don't have a primary care physician on staff, we will provide you with a referral. We always advise you to contact your personal physician following an emergency department visit to inform them of the circumstance of the visit and for follow-up with them and/or the need for any referrals to a consulting specialist. The emergency department will also refer you to a specialist when appropriate. This referral assures that you have the opportunity for follow-up care with a specialist. All of these measure are taken in an effort to provide you with optimal care, which includes your follow-up. Under all circumstances we always encourage you to contact your private physician who remains a resource for coordinating your care. When calling for follow-up care, please make the office aware that this follow-up is from your recent emergency room visit. If for any reason you are refused follow-up, please contact the [facility] Department at and asked to speak to the emergency department charge nurse. Please follow up with your primary care physician. If you do not have a primary care physician, see below: [facility] [address] [place] [id number] [facility] [address] [place] [address] Sepsis Event Note (ED) - Focused Exam Vital Signs: Vital Signs Temp Pulse Resp BP Pulse Ox 07/16/20 10:02 97.0 F 113 H 28 H 200/128 H 94 L - My Orders Last 24 Hours: My Active Orders 07/16/20 09:49 EKG Documentation Completion [RC] STAT Sodium Chloride 0.9% [Saline Flush] 10 ml FLUSH ASDIRECTED PRN Sodium Chloride 0.9% [Saline Flush] 2.5 ml FLUSH ASDIRECTED PRN 07/16/20 09:50 Saline Lock Insert [OM.PC] Stat 07/16/20 09:51 Blood Glucose Check, Bedside [RC] ONETIME Cardiac Monitoring [RC] . DIRECTED Pulse Oximetry [RC] ASDIRECTED UA W/FRANTZ RFLX IF INDICATED [URIN] Stat - Assessment/Plan Last 24 Hours: My Active Orders 07/16/20 09:49 EKG Documentation Completion [RC] STAT Sodium Chloride 0.9% [Saline Flush] 10 ml FLUSH ASDIRECTED PRN Sodium Chloride 0.9% [Saline Flush] 2.5 ml FLUSH ASDIRECTED PRN 07/16/20 09:50 Saline Lock Insert [OM.PC] Stat 07/16/20 09:51 Blood Glucose Check, Bedside [RC] ONETIME Cardiac Monitoring [RC] . DIRECTED Pulse Oximetry [RC] ASDIRECTED UA W/FRANTZ RFLX IF INDICATED [URIN] Stat
[2020-07-16] MEDS ORDERED: Labetalol 100 MG/20 ML MDV IVPUSH ONE (10:21)
[2020-07-16 11:56] LABS: BLOOD UREA NITROGEN,BUN 33 mg/dL (7.0-18.0); CARBON DIOXIDE,CO2 19.1 mmol/L (21.0-32.0); CHLORIDE,CL 108 mmol/L (98-107); GLUCOSE RANDOM 372 mg/dL (74-106); LIPASE 83 U/L (73-393); POTASSIUM,K 4.1 mmol/L (3.5-5.1); SODIUM,NA 140 mmol/L (136-148)
--- NOTE | 2020-07-16 12:26 | PCM.SN.2 ---
- Free Text/Narrative Note: Called to ER for difficult IV start. 6 previous attempts. #22 guage placed L hand. Secured. 1020-50. Recalled to ER for pulled out IV. #22 guage R hand. Secured. [id number].
[2020-07-16 13:30] VITALS: BP 196/116; PULSE 91
== END 2020-07-16 13:20 | disposition home or self-care (01) ==
LOC: MW.ED 09:48
DX: E10.43 Type 1 diabetes mellitus with diabetic autonomic (poly)neuropathy (principal); K31.84 Gastroparesis; I10 Essential (primary) hypertension; I12.9 Hypertensive chronic kidney disease with stage 1 through stage 4 chronic kidney disease, or unspecified chronic kidney disease; E10.22 Type 1 diabetes mellitus with diabetic chronic kidney disease; N18.9 Chronic kidney disease, unspecified; E10.21 Type 1 diabetes mellitus with diabetic nephropathy; Z91.013 Allergy to seafood; Z88.0 Allergy status to penicillin; Z91.09 Other allergy status, other than to drugs and biological substances; Z79.82 Long term (current) use of aspirin; Z79.899 Other long term (current) drug therapy
CPT/HCPCS: 36415; 80053; 80307; 83605; 83690; 83735; 84484; 85025; 93005; 96372; 96374; 96375; 99284; A9270; C9113; J1630; J3490; J7030; 36410; 93010; 99283

== ENCOUNTER 2020-07-17 06:14 | Emergency (ER) | payer MEDICARE, MEDICAID ==
[2020-07-17] MEDS ORDERED: Ondansetron 4 MG/2 ML SDV IVPUSH ONE (06:37)
[2020-07-17] MEDS ORDERED: Pantoprazole 80 MG in Sodium Chloride 0.9% 20 ML IVPUSH ONE (06:37)
[2020-07-17] MEDS ORDERED: Haloperidol Lactate 5 MG/ML SDV IM ONE (06:37)
[2020-07-17] MEDS ORDERED: diphenhydrAMINE 50 MG/ML SDV IVPUSH ONE (06:37)
[2020-07-17] MEDS ORDERED: Sodium Chloride 0.9% 10 ML Syringe FLUSH PRN (06:38)
[2020-07-17] MEDS ORDERED: Sodium Chloride 0.9% 2.5 ML Syringe FLUSH PRN (06:38)
[2020-07-17] MEDS ORDERED: Sodium Chloride 0.9% 1,000 ML IV ONE (06:38)
--- NOTE | 2020-07-17 06:56 | EDM.PDOC ---
<RulaChirag - Last Filed: 07/17/20 06:46> ED HPI GENERAL MEDICAL PROBLEM - General Chief Complaint: Abdominal Pain Stated Complaint: VOMITING, PAIN Time Seen by Provider: 07/17/20 06:46 - History of Present Illness INITIAL COMMENTS - FREE TEXT/NARRATIVE: HISTORY AND PHYSICAL: History of present illness: This is a 35-year-old gentleman with a history significant for diabetes, hypertension, chronic kidney disease, DKA, TIAs, hematemesis, cyclical vomiting syndrome, diabetic gastroparesis, who presents ER today secondary to pain in his abdomen greatest in the midepigastric region which she reports is typical to his prior episodes of abdominal pain. Patient present the pain that he is experiencing today feels slightly worse than usual. Patient reports that he was seen and evaluated in the ER yesterday and was treated with medications. Patient reports that after the medication was given he felt much improved and had no further emesis. Patient reports that shortly after going home his sym ptoms recurred and he started having further episodes of vomiting. Patient reports that he has been unable to tolerate any p.o. solids or liquids since discharge from the ED. Patient reports no hematemesis with his emesis. Although the patient reports he has had diarrhea he reports only 1 loose bowel movement within the last 24 hours. Patient reports no change in urinary output. Patient denies any dysuria, frequency, urgency. Patient reports his last CT scan of his abdomen pelvis was approximately 1 month ago and he was told that there was nothing significantly abnormal with it. Patient denies any abdominal or chest surgeries in the past. Patient has multiple allergies as above. Patient denies any alcohol or drugs. Review of systems: As per history of present illness and below otherwise all systems reviewed and negative. Past medical history: As per history of present illness and as reviewed below otherwise noncontributory. Surgical history: As per history of present illness and as reviewed below otherwise noncontributory. Social history: No reported history of drug or alcohol abuse. Family history: As per history of present illness and as reviewed below otherwise n oncontributory. Physical exam: Constitutional: Patient is oriented to person, place, and time. Appears well- developed and well-nourished. No distress. HEENT: Moist mucous membranes Head: Normocephalic and atraumatic Eyes: Right eye exhibits no discharge. Left eye exhibits no discharge. No scleral icterus Neck: Normal range of motion. No tracheal deviation present. Cardiovascular: Normal rate and regular rhythm. Pulmonary: Effort normal, no respiratory distress. Abdomen: Soft, nondistended, no rebound or guarding, normal active bowel sounds, patient was tenderness palpation diffusely to his abdomen greatest in the midepigastric region. Patient has no tenderness to palpation at McBurney's point. Patient has a negative Interiano sign. Musculoskeletal: Normal range of motion Neurologic: Alert and oriented to person, place and time. Skin: [place], warm and dry. Psychiatric: Normal mood and affect. Behavior is normal. Judgment and thought content normal. Nursing note and vital signs have been reviewed Diagnostics: CBC, CMP, lipase, lactic acid, EKG to assess QT duration, urinalysis Therapeutics: Haldol 5 mg IM Benadryl 50 mg IV Zofran 4 mg IV NSS wide open x1 L Protonix 80 mg IV Assessment and plan: This is a 35-year-old gentleman with multiple medical problems including diabetes, cyclical vomiting syndrome, chronic kidney disease, hypertension, chronic pain, who presents ER today with an acute exacerbation of his cyclic vomiting syndrome and abdominal pain. Patient was seen in the ER yesterday and was treated with adequate analgesia and felt better prior to being discharged. Patient reports shortly after going home his symptoms recurred. In the ED, the patient will have labs evaluated as well as an EKG. Patient be treated with Haldol, Benadryl, Zofran, Protonix and IV fluids. This regimen has been used on him in the past and he appears to respond well to it. Care transferred at [address] Ruby Definitive disposition and diagnosis as appropriate pending reevaluation and review of above. abdominal Pain Score (Numeric/FACES): 9 - Related Data Allergies Allergy/AdvReac Type Severity Reaction Status Date / Time shrimp Allergy Severe Swelling Verified 07/17/20 06:22 iodine Allergy Unknown Anaphylactic Verified 07/17/20 06:22 Shock Penicillins Allergy Unknown Anaphylactic Verified 07/17/20 06:22 Shock shellfish derived Allergy Anaphylactic Verified 07/17/20 06:22 Shock gluten Allergy Severe Muscle Uncoded 07/17/20 06:22 Aches Home Meds: Home Meds Doxazosin [Cardura] 8 mg PO BEDTIME 09/29/19 [History] Metoprolol Succinate 200 mg PO DAILY 09/29/19 [History] Torsemide 20 mg PO BID 09/29/19 [History] atorvaSTATin [Lipitor] 80 mg PO BEDTIME 09/29/19 [History] Insulin Aspart [NovoLOG] 0 unit SUBCUT .UP TO 60 UN DAILY 09/30/19 [History] Metoclopramide [Reglan] 5 mg PO TIDAC #90 tablet 10/10/19 [Rx] Aspirin [Adult Low Dose Aspirin EC] 81 mg PO DAILY 12/07/19 [History] Enalapril Maleate 20 mg PO DAILY 12/07/19 [History] Insulin Glarg,Human.Rec.Analog [Lantus] 38 mg SUBCUT BEDTIME 12/07/19 [History] Iron Ag,Ps/C/Fa6/B12/Zn/SA/Sto [Niferex Tablet] 150 mg PO BID 12/07/19 [History] Sertraline [Zoloft] 50 mg PO DAILY 12/07/19 [History] Sucralfate 1 gm PO QIDACANDBED 12/07/19 [History] amLODIPine Besylate [Amlodipine Besylate] 10 mg PO DAILY 12/07/19 [History] hydroCHLOROthiazide [Hydrochlorothiazide] 25 mg PO DAILY 12/07/19 [History] Pantoprazole Sodium [Protonix] 40 mg PO DAILY 30 Days #30 suspdr.pkt 05/31/20 [Rx] hydrALAZINE [Apresoline] 50 mg PO Q8H #60 tablet 07/14/20 [Rx] Past Medical History - Past Health History Medical/Surgical History: Denies Medical/Surgical History HEENT History: Reports: Impaired Vision Other HEENT History: blind right eye Cardiovascular History: Reports: Hypertension Respiratory History: Reports: None Gastrointestinal History: Reports: Gastritis, GERD, Hiatal Hernia, Other (See Below) Other Gastrointestinal History: h/o gastric ulcers, h/o hiatal hernia; gastroparesis Genitourinary History: Reports: Chronic Renal Insuffiency, Diabetic Nephropathy Musculoskeletal History: Reports: Amputation Other Musculoskeletal History: RLE Neurological History: Reports: Neuropathy, Peripheral Other Neuro History: stroke Psychiatric History: Reports: Anxiety Endocrine/Metabolic History: Reports: Diabetes, Type I Other Endocrine/Metabolic History: brittle diabetic. History of hyperkalemia and DKA Insulin Pump Model and Managed Care Provider: None Hematologic History: Reports: Anemia Immunologic History: Reports: None Oncologic (Cancer) History: Reports: None Dermatologic History: Reports: Other (See Below) Other Dermatologic History: diabetic foot ulcers - Infectious Disease History Infectious Disease History: Reports: Chicken Pox Other Infectious Disease History: 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 - Past Surgical History Head Surgeries/Procedures: Reports: None HEENT Surgical History: Reports: None Respiratory Surgical History: Reports: None GI Surgical History: Reports: None Male Surgical History: Reports: None Endocrine Surgical History: Reports: None Oncologic Surgical History: Reports: None Dermatological Surgical History: Reports: None Social & Family History - Family History Family Medical History: Noncontributory Cardiac: Reports: High Cholesterol, Hypertension OBGYN: Reports: Neurological: Reports: None Psychiatric: Reports: Anxiety - Tobacco Use Tobacco Use Status *Q: Never Tobacco User - Caffeine Use Caffeine Use: Reports: None Other Caffeine Use: daily Caffeine Use Comment: patient is uncooperated - Recreational Drug Use Recreational Drug Use: No - Living Situation & Occupation Living situation: Reports: Single Occupation: Employed (Currently unemployed.) ED ROS GENERAL - Review of Systems Review Of Systems: See Below ED EXAM, GENERAL - Physical Exam Exam: See Below Departure - Departure Disposition: Home, Self-Care 01 Clinical Impression: Gastroparesis - Discharge Information Referrals: PCP,None [Primary Care Provider] - Forms: ED Department Discharge Additional Instructions: The following information is given to patients seen in the emergency department who are being discharged to home. This information is to outline your options for follow-up care. We provide all patients seen in our emergency department with a follow-up referral. The need for follow-up, as well as the timing and circumstances, are variable depending upon the specifics of your emergency department visit. If you don't have a primary care physician on staff, we will provide you with a referral. We always advise you to contact your personal physician following an emergency department visit to inform them of the circumstance of the visit and for follow-up with them and/or the need for any referrals to a consulting specialist. The emergency department will also refer you to a specialist when appropriate. This referral assures that you have the opportunity for follow-up care with a specialist. All of these measure are taken in an effort to provide you with optimal care, which includes your follow-up. Under all circumstances we always encourage you to contact your private physician who remains a resource for coordinating your care. When calling for follow-up care, please make the office aware that this follow-up is from your recent emergency room visit. If for any reason you are refused follow-up, please contact the [facility] Emergency Department at and asked to speak to the emergency department charge nurse. Please follow up with your primary care physician. If you do not have a primary care physician, see below: [facility] [address] [place] [id number] [facility] [address] [place] [address] Sepsis Event Note (ED) - Evaluation Sepsis Screening Result: No Definite Risk <Emanuel Ruby - Last Filed: 07/17/20 08:28> #1 Interpretation EKG Date: 07/17/20 Time: 07:08 Rhythm: Other (sinus tachycardia) [place]: Normal P-Wave: Present QRS: Normal ST-T: Normal QT: Normal WA/PQ Interval: 106 Comparison: NA - No Prior EKG Course - Vital Signs Last Recorded V/S: Last Vital Signs Temp 97.4 F 07/17/20 06:23 Pulse 116 H 07/17/20 06:23 Resp 19 07/17/20 06:23 BP 210/123 H 07/17/20 06:23 Pulse Ox 99 07/17/20 06:23 - Orders/Labs/Meds Orders: Active Orders 24 hr Category Date Time Status EKG Documentation Completion [RC] AM Care 07/17/20 06:38 Active UA W/FRANTZ RFLX IF INDICATED [URIN] Stat Lab 07/17/20 06:39 Ordered Sodium Chloride 0.9% [Saline Flush] Med 07/17/20 06:38 Active 10 ml FLUSH ASDIRECTED PRN Sodium Chloride 0.9% [Saline Flush] Med 07/17/20 06:38 Active 2.5 ml FLUSH ASDIRECTED PRN Saline Lock Insert [OM.PC] Stat Oth 07/17/20 06:38 Ordered Medication Orders Sodium Chloride (Saline Flush) 10 ml FLUSH ASDIRECTED PRN PRN Reason: Keep Vein Open Sodium Chloride (Saline Flush) 2.5 ml FLUSH ASDIRECTED PRN PRN Reason: Keep Vein Open Labs: Laboratory Tests 07/17/20 07/17/20 07/17/20 Range/Units 06:25 06:25 06:30 WBC (4.0-11.0) K/uL RBC (4.50-5.90) M/uL Hgb (13.0-17.0) g/dL Hct (38.0-50.0) % MCV (80.0-98.0) fL MCH (27.0-32.0) pg MCHC (31.0-37.0) g/dL RDW Std Deviation (28.0-62.0) fl RDW Coeff of Dania (11.0-15.0) % Plt Count (150-400) K/uL MPV (7.40-12.00) fL Add Manual Diff Neutrophils % (Manual) (48.0-80.0) % Lymphocytes % (Manual) (16.0-40.0) % Monocytes % (Manual) (0.0-15.0) % Metamyelocytes % % Nucleated RBC % /100WBC Absolute Seg Neuts (1.4-5.7) Lymphocytes # (Manual) (0.6-2.4) Monocytes # (Manual) (0.0-0.8) Absolute Metamyelocyte Nucleated RBCs # K/uL Lactate 0.9 (0.20-2.00) mmol/L Sodium 137 (136-148) mmol/L Potassium 4.1 (3.5-5.1) mmol/L Chloride 106 (98-107) mmol/L Carbon Dioxide 17.6 L (21.0-32.0) mmol/L BUN 30 H (7.0-18.0) mg/dL Creatinine 3.6 H (0.8-1.3) mg/dL Est Cr Clr Drug Dosing 28.91 mL/min Estimated GFR (MDRD) 23.6 ml/min Glucose 165 H (74-106) mg/dL POC Glucose 178 H (60-110) mg/dL Calcium 7.4 L (8.5-10.1) mg/dL Magnesium 1.8 (1.8-2.4) mg/dL Total Bilirubin 0.3 (0.2-1.0) mg/dL AST 50 H (15-37) IU/L ALT 22 (14-63) IU/L Alkaline Phosphatase 82 (46-116) U/L Total Protein 6.1 L (6.4-8.2) g/dL Albumin 2.1 L (3.4-5.0) g/dL Globulin 4.0 (2.6-4.0) g/dL Albumin/Globulin Ratio 0.5 L (0.9-1.6) Lipase 29 L (73-393) U/L 07/17/20 Range/Units 07:25 WBC 12.28 H (4.0-11.0) K/uL RBC 4.24 L (4.50-5.90) M/uL Hgb 9.4 L (13.0-17.0) g/dL Hct 29.2 L (38.0-50.0) % MCV 68.9 L (80.0-98.0) fL MCH 22.2 L (27.0-32.0) pg MCHC 32.2 (31.0-37.0) g/dL RDW Std Deviation 44.9 (28.0-62.0) fl RDW Coeff of Dania 18 H (11.0-15.0) % Plt Count 208 (150-400) K/uL MPV 10.50 (7.40-12.00) fL Add Manual Diff YES Neutrophils % (Manual) 86 H (48.0-80.0) % Lymphocytes % (Manual) 6 L (16.0-40.0) % Monocytes % (Manual) 7 (0.0-15.0) % Metamyelocytes % 1 % Nucleated RBC % 0.0 /100WBC Absolute Seg Neuts 10.6 H (1.4-5.7) Lymphocytes # (Manual) 0.7 (0.6-2.4) Monocytes # (Manual) 0.9 H (0.0-0.8) Absolute Metamyelocyte 0.1 Nucleated RBCs # 0 K/uL Lactate (0.20-2.00) mmol/L Sodium (136-148) mmol/L Potassium (3.5-5.1) mmol/L Chloride (98-107) mmol/L Carbon Dioxide (21.0-32.0) mmol/L BUN (7.0-18.0) mg/dL Creatinine (0.8-1.3) mg/dL Est Cr Clr Drug Dosing mL/min Estimated GFR (MDRD) ml/min Glucose (74-106) mg/dL POC Glucose (60-110) mg/dL Calcium (8.5-10.1) mg/dL Magnesium (1.8-2.4) mg/dL Total Bilirubin (0.2-1.0) mg/dL AST (15-37) IU/L ALT (14-63) IU/L Alkaline Phosphatase (46-116) U/L Total Protein (6.4-8.2) g/dL Albumin (3.4-5.0) g/dL Globulin (2.6-4.0) g/dL Albumin/Globulin Ratio (0.9-1.6) Lipase (73-393) U/L Meds: Medications Generic Name Dose Route Start Last Admin Trade Name Freq PRN Reason Stop Dose Admin Sodium Chloride 10 ml 07/17/20 06:38 Saline Flush FLUSH ASDIRECTED PRN Keep Vein Open Sodium Chloride 2.5 ml 07/17/20 06:38 Saline Flush FLUSH ASDIRECTED PRN Keep Vein Open Discontinued Medications Generic Name Dose Route Start Last Admin Trade Name Freq PRN Reason Stop Dose Admin Diphenhydramine HCl 50 mg 07/17/20 06:37 07/17/20 06:44 Benadryl IVPUSH 07/17/20 06:38 50 mg ONETIME ONE Administration Haloperidol Lactate 5 mg 07/17/20 06:37 07/17/20 06:47 Haldol IM 07/17/20 06:38 5 mg ONETIME ONE Administration Pantoprazole Sodium 80 mg/ 20 mls @ 420 mls/hr 07/17/20 06:37 07/17/20 06:50 Sodium Chloride IVPUSH 07/17/20 06:39 420 mls/hr ONETIME ONE Administration Sodium Chloride 1,000 mls @ 999 mls/hr 07/17/20 06:38 07/17/20 06:52 Normal Saline IV 07/17/20 07:38 999 mls/hr .Bolus ONE Administration Ondansetron HCl 4 mg 07/17/20 06:37 07/17/20 06:42 Zofran IVPUSH 07/17/20 06:38 4 mg ONETIME ONE Administration - Re-Assessments/Exams Free Text/Narrative Re-Assessment/Exam: 07/17/20 07:08 Patient care transition from Dr. Horta pending labs, reassessment. 07/17/20 08:20 Labs are grossly unremarkable, will follow-up for reassessment and disposition accordingly. Departure - Departure Time of Disposition: 08:28 Condition: Good Sepsis Event Note (ED) - Focused Exam Vital Signs: Vital Signs Temp Pulse Resp BP Pulse Ox 07/17/20 06:23 97.4 F 116 H 19 210/123 H 99
[2020-07-17 06:59] LABS: CARBON DIOXIDE,CO2 17.6 mmol/L (21.0-32.0); POTASSIUM,K 4.1 mmol/L (3.5-5.1)
[2020-07-17 08:29] VITALS: BP 211/112; PULSE 100
== END 2020-07-17 08:43 | disposition home or self-care (01) ==
LOC: MW.ED 06:14
DX: E10.43 Type 1 diabetes mellitus with diabetic autonomic (poly)neuropathy (principal); E10.21 Type 1 diabetes mellitus with diabetic nephropathy; K31.84 Gastroparesis; I12.9 Hypertensive chronic kidney disease with stage 1 through stage 4 chronic kidney disease, or unspecified chronic kidney disease; N18.9 Chronic kidney disease, unspecified; K21.9 Gastro-esophageal reflux disease without esophagitis; F41.9 Anxiety disorder, unspecified; Z79.82 Long term (current) use of aspirin; Z79.899 Other long term (current) drug therapy; Z91.013 Allergy to seafood; Z91.048 Other nonmedicinal substance allergy status; Z88.0 Allergy status to penicillin; Z79.4 Long term (current) use of insulin; Z86.73 Personal history of transient ischemic attack (TIA), and cerebral infarction without residual deficits
CPT/HCPCS: 80053; 82962; 83605; 83690; 83735; 85025; 93005; 96372; 96374; 96375; 99284; C9113; J1200; J1630; J2405; J7030; 93010; 99283

== ENCOUNTER 2020-07-19 18:27 | Emergency (ER) | payer MEDICARE, MEDICAID ==
--- NOTE | 2020-07-19 18:46 | EDM.PDOC ---
<Chirag Horta - Last Filed: 07/19/20 18:50> ED HPI GENERAL MEDICAL PROBLEM - General Chief Complaint: Abdominal Pain Stated Complaint: ABDOMINAL PAIN Time Seen by Provider: 07/19/20 18:29 - History of Present Illness INITIAL COMMENTS - FREE TEXT/NARRATIVE: HISTORY AND PHYSICAL: History of present illness: This is a 35-year-old gentleman with a history significant for diabetes, hypertension, chronic kidney disease, DKA, TIAs, hematemesis, cyclical vomiting syndrome, diabetic gastroparesis, who presents ER today secondary to pain in his abdomen greatest in the midepigastric region. Patient reports that the episodes of vomiting today is atypical to the vomiting that he usually has from his diabetic gastroparesis. Patient reports when he has vomiting from his gastroparesis it usually after eating however today he has not ate anything and he still having episodes of vomiting. Although in history, the patient has documented history of cyclical vomiting syndrome, the patient denies knowing wh at that is. Patient reports that he was seen and evaluated in the ER on 1 day and was treated with fluids and medications. Reports that he was still nauseous when he was discharged from the ER but reports that he did feel much improved. Patient reports that over the last 2 days he has not been able to keep down any p.o. solids. Patient reports he is been able to keep down some water but has had decreased urinary output secondary to diminished intake of fluids. Patient reports that has been having some blood in his vomit. Although the patient reports he has had diarrhea quantifies it as only 1 loose bowel movement within the last 24 hours. Patient reports diminished urinary output. Patient denies any dysuria, frequency, urgency. Patient reports that he was tested for coronavirus last week and was positive. Patient reports his last CT scan of his abdomen pelvis was approximately 1 month ago and he was told that there was nothing significantly abnormal with it. Patient denies any abdominal or chest surgeries in the past. Patient reports his gallbladder and appendix are still in. Patient denies any history of pancreatitis. Patient has multiple allergies as above. Patient denies any alcohol or drugs. Review of systems: As per history of present illness and below otherwise all systems reviewed and negative. Past medical history: As per history of present illness and as reviewed below otherwise noncontributory. Surgical history: As per history of present illness and as reviewed below otherwise noncontributory. Social history: No reported history of drug or alcohol abuse. Family history: As per history of present illness and as reviewed below otherwise noncontributory. Physical exam: Constitutional: Patient is oriented to person, place, and time. Appears well- developed and well-nourished. No distress. HEENT: Moist mucous membranes Head: Normocephalic and atraumatic Eyes: Right eye exhibits no discharge. Left eye exhibits no discharge. No scleral icterus Neck: Normal range of motion. No tracheal deviation present. Cardiovascular: Normal rate and regular rhythm. Tachycardic at 110 Pulmonary: Effort normal, no respiratory distress. Abdomen: Soft, nondistended, no rebound or guarding, normal active bowel sounds, patient was tenderness palpation diffusely to his abdomen greatest in the midepigastric region. Patient has no tenderness to palpation at McBurney's point. Patient has a negative Interiano sign. Musculoskeletal: Normal range of motion Neurologic: Alert and oriented to person, place and time. Skin: Julian, warm and dry. Psychiatric: Normal mood and affect. Behavior is normal. Judgment and thought content normal. Nursing note and vital signs have been reviewed Diagnostics: CBC, CMP, lipase, EKG, CT of the abdomen pelvis without contrast Therapeutics: Haldol 5 mg IM Benadryl 50 mg IV Zofran 4 mg IV NSS wide open x1 L Protonix 80 mg IV Assessment and plan: This is a 35-year-old gentleman, who was recently tested positive for coronavirus, with multiple medical problems including diabetes, cyclical vomiting syndrome, chronic kidney disease, hypertension, chronic pain, who presents ER today with an acute exacerbation of his cyclic vomiting syndrome and abdominal pain. Patient was seen in the ER July 17 and was treated with adequate analgesia and felt better prior to being discharged. Patient reports shortly after going home his symptoms recurred and he has been unable to tolerate p.o. solids and minimal p.o. liquids since.. In the ED, the patient will have labs evaluated as well as an EKG. Patient be treated with Haldol, Benadryl, Zofran, Protonix and IV fluids. This regimen has been used on him in the past and he appears to respond well to it. Care signed out to Dr. June at 7 PM for reevaluation of patient's symptoms as well as labs. Definitive disposition and diagnosis as appropriate pending reevaluation and review of above. - Related Data Allergies Allergy/AdvReac Type Severity Reaction Status Date / Time shrimp Allergy Severe Swelling Verified 07/19/20 18:36 iodine Allergy Unknown Anaphylactic Verified 07/19/20 18:36 Shock Penicillins Allergy Unknown Anaphylactic Verified 07/19/20 18:36 Shock shellfish derived Allergy Anaphylactic Verified 07/19/20 18:36 Shock gluten Allergy Severe Muscle Uncoded 07/19/20 18:36 Aches Home Meds: Home Meds Doxazosin [Cardura] 8 mg PO BEDTIME 09/29/19 [History] Metoprolol Succinate 200 mg PO DAILY 09/29/19 [History] Torsemide 20 mg PO BID 09/29/19 [History] atorvaSTATin [Lipitor] 80 mg PO BEDTIME 09/29/19 [History] Insulin Aspart [NovoLOG] 0 unit SUBCUT .UP TO 60 UN DAILY 09/30/19 [History] Metoclopramide [Reglan] 5 mg PO TIDAC #90 tablet 10/10/19 [Rx] Aspirin [Adult Low Dose Aspirin EC] 81 mg PO DAILY 12/07/19 [History] Enalapril Maleate 20 mg PO DAILY 12/07/19 [History] Insulin Glarg,Human.Rec.Analog [Lantus] 38 mg SUBCUT BEDTIME 12/07/19 [History] Iron Ag,Ps/C/Fa6/B12/Zn/SA/Sto [Niferex Tablet] 150 mg PO BID 12/07/19 [History] Sertraline [Zoloft] 50 mg PO DAILY 12/07/19 [History] Sucralfate 1 gm PO QIDACANDBED 12/07/19 [History] amLODIPine Besylate [Amlodipine Besylate] 10 mg PO DAILY 12/07/19 [History] hydroCHLOROthiazide [Hydrochlorothiazide] 25 mg PO DAILY 12/07/19 [History] Pantoprazole Sodium [Protonix] 40 mg PO DAILY 30 Days #30 suspdr.pkt 05/31/20 [Rx] hydrALAZINE [Apresoline] 50 mg PO Q8H #60 tablet 07/14/20 [Rx] oxyCODONE HCl/Acetaminophen [Percocet 5-325 mg Tablet] 1 each PO Q6H PRN 3 Days #12 tablet 07/17/20 [Rx] Past Medical History - Past Health History Medical/Surgical History: Denies Medical/Surgical History HEENT History: Reports: Impaired Vision Other HEENT History: blind right eye Cardiovascular History: Reports: Hypertension Respiratory History: Reports: None Gastrointestinal History: Reports: Gastritis, GERD, Hiatal Hernia, Other (See Below) Other Gastrointestinal History: h/o gastric ulcers, h/o hiatal hernia; gastroparesis Genitourinary History: Reports: Chronic Renal Insuffiency, Diabetic Nephropathy Musculoskeletal History: Reports: Amputation Other Musculoskeletal History: RLE Neurological History: Reports: Neuropathy, Peripheral Other Neuro History: stroke Psychiatric History: Reports: Anxiety Endocrine/Metabolic History: Reports: Diabetes, Type I Other Endocrine/Metabolic History: brittle diabetic. History of hyperkalemia and DKA Insulin Pump Model and Educational Speech Language Clinician: None Hematologic History: Reports: Anemia Immunologic History: Reports: None Oncologic (Cancer) History: Reports: None Dermatologic History: Reports: Other (See Below) Other Dermatologic History: diabetic foot ulcers - Infectious Disease History Infectious Disease History: Reports: Chicken Pox Other Infectious Disease History: 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 - Past Surgical History Head Surgeries/Procedures: Reports: None HEENT Surgical History: Reports: None Respiratory Surgical History: Reports: None GI Surgical History: Reports: None Male Surgical History: Reports: None Endocrine Surgical History: Reports: None Oncologic Surgical History: Reports: None Dermatological Surgical History: Reports: None Social & Family History - Family History Family Medical History: Noncontributory Cardiac: Reports: High Cholesterol, Hypertension OBGYN: Reports: Neurological: Reports: None Psychiatric: Reports: Anxiety - Tobacco Use Tobacco Use Status *Q: Never Tobacco User - Caffeine Use Caffeine Use: Reports: None Other Caffeine Use: daily Caffeine Use Comment: patient is uncooperated - Recreational Drug Use Recreational Drug Use: No - Living Situation & Occupation Living situation: Reports: Single Occupation: Employed (Currently unemployed.) Departure - Departure Disposition: Home, Self-Care 01 Clinical Impression: COVID-19, Chronic kidney disease, Gastroparesis diabeticorum, Urinary retention Abdominal pain Qualifiers: Abdominal location: generalized Qualified Code(s): R10.84 - Generalized abdominal pain Chronic kidney disease, stage 3 (moderate) Qualifiers: Chronic kidney disease stage 3 subtype: unspecified whether 3a or 3b Qualified Code(s): N18.30 - Chronic kidney disease, stage 3 unspecified - Discharge Information Instructions: COVID-19 Frequently Asked Questions, Food Basics for Chronic Kidney Disease, Nausea and Vomiting, Adult, [id number], Chronic Kidney Disease, Adult, [id number], Acute Urinary Retention, Male, [id number], Gastroparesis, Prevent the Spread of COVID-19 if You Are Sick - [facility] Referrals: Fitz Infante MD [Primary Care Provider] - Asim Villela MD [Physician] - Forms: ED Department Discharge Additional Instructions: The patient is informed of any results of their evaluation and diagnostic workup and all questions are answered. They are given discharge instructions and return precautions. The patient is stable for discharge. The patient states they understand and agree with the plan and that they will return if their symptoms get worse or if they have any new concerns. The following information is given to patients seen in the emergency department who are being discharged to home. This information is to outline your options for follow-up care. We provide all patients seen in our emergency department with a follow-up referral. The need for follow-up, as well as the timing and circumstances, are variable depending upon the specifics of your emergency department visit. If you don't have a primary care physician on staff, we will provide you with a referral. We always advise you to contact your personal physician following an emergency department visit to inform them of the circumstance of the visit and for follow-up with them and/or the need for any referrals to a consulting specialist. The emergency department will also refer you to a specialist when appropriate. This referral assures that you have the opportunity for follow-up care with a specialist. All of these measure are taken in an effort to provide you with optimal care, which includes your follow-up. Under all circumstances we always encourage you to contact your private physician who remains a resource for coordinating your care. When calling for follow-up care, please make the office aware that this follow-up is from your recent emergency room visit. If for any reason you are refused follow-up, please contact the [facility] Emergency Department at and asked to speak to the emergency department charge nurse. Your evaluated in the emergency department today for abdominal pain with nausea and vomiting. Given the history of gastroparesis and diabetes this is likely the cause of your symptoms. Is super important to follow-up with your primary care physician for further management of this. In addition you were diagnosed with COVID-19. Your oxygen saturation here in the emergency department remain normal please return to the emergency department if you have worsening shortness of breath. In addition, you have chronic kidney disease which is likely secondary to chronic obstruction as you have distended bladder on CT and thickening of the bladder. Please follow-up with urology as soon as possible. Please return to the emergency department if you have worsening abdominal pain and inability to tolerate p.o. [facility] [place] - Urology [address] [place] [address] [id number] [facility] - Primary Care [address] [place] [id number] [address] . Sepsis Event Note (ED) - Evaluation Sepsis Screening Result: No Definite Risk <Matti South - Last Filed: 07/20/20 02:01> ED HPI GENERAL MEDICAL PROBLEM - History of Present Illness INITIAL COMMENTS - FREE TEXT/NARRATIVE: Patient was signed out to me by Dr. Coreas pending laboratory analysis, imaging, and reevaluation at 7PM Laboratory: CBC reveals a leukocytosis of 14.94 with neutrophilic predominance, microcytic anemia with a hemoglobin of 10.5 and hematocrit of 32.0. His leukocytosis is slightly increased from 07/17/2020 otherwise it appears to be unchanged. CMP reveals metabolic acidosis with a bicarbonate of 17.8 which is unchanged from yesterday at 17.6. Patient does have elevated BUN at 30 and a creatinine of 4.3 which appears to be the patient's baseline. Patient was hyperglycemic at 121. Calcium was low at 8.1. This is also unchanged. There is mild elevation in his AST at 39 which is decreased from 07/17/2020 at 50. Troponin is negative. Hypoproteinemia at 6.1, hypoalbuminemia at 1.7 which appear to be unchanged. Urinaylysis was a clean catch and was negative for leukocyte esterase, negative for nitrites, and positive for blood. Interpretation: Microscopic hematuria Twelve-lead EKG interpreted by myself. Sinus tachycardia at a rate of 119beats per minute. Normal axis. ND interval is 155ms. QRS duration is 68ms. ST segments are normal without elevations or depressions. Q waves are located in V2 and V3 which are unchanged from prior. Hypertrophy not noted. No changes demonstrated from prior EKG dated 07/11/2020. Interpretation: Sinus tachycardia The radiological images were viewed by myself along with reading the report from the radiologist. CT abdomen pelvis with IV contrast reveals new mild patchy peripheral groundglass right greater than left lower lung infiltrates with appearance typical of COVID-19. There is moderate thickening of the wall of the distal esophagus consistent with reflux of esophagitis, moderate distention of the urinary bladder with bladder wall thickening consistent with longstanding bladder outlet obstruction. Normal appearance of the prostate. Other than the infiltrates this does not appear any different than prior CT. At the time of my reevaluation the patient reported some increased abdominal pain therefore I provided the patient with additional 5 mg of IV Haldol. During this time the patient was able to tolerate p.o. and was walking around his patient room. On reevaluation, the patient continued to tolerate p.o. and his pain had improved. I did discuss with him the results of his CAT scan and laboratory analysis. I did discuss that at this time I do believe he is stable for discharge. He was instructed to return to the emergency department for new or worsening symptoms such as shortness of breath given that he has COVID-19, inability to urinate, pain with urination, decreased urination, or worsening abdominal pain. He is also to return for the inability to tolerate p.o. I did encourage the patient to follow-up with his primary care physician for better management of his gastroparesis and to follow-up with urology as he has been instructed to before today. He did express understanding and was amenable to di scharerinn DISPOSITION: The patient was discharged home in stable condition. The patient will follow up with PCP and urology CONDITION: Fair PROCEDURES: None FINAL IMPRESSION(S)/DIAGNOSES: 1. Acute abdominal pain with nausea and vomiting likely secondary to gastroparesis versus reflux esophagitis 2. Chronic kidney disease 3. Chronic bladder outlet obstruction Matti South M.D. ED ROS GENERAL - Review of Systems Review Of Systems: See Below ED EXAM, GENERAL - Physical Exam Exam: See Below Course - Vital Signs Last Recorded V/S: Last Vital Signs Temp 37.1 C 07/20/20 00:15 Pulse 102 H 07/20/20 00:15 Resp 18 07/20/20 00:15 BP 168/97 H 07/20/20 00:15 Pulse Ox 95 07/20/20 00:15 - Orders/Labs/Meds Orders: Active Orders 24 hr Category Date Time Status EKG Documentation Completion [RC] AM Care 07/19/20 18:52 Active Sodium Chloride 0.9% [Saline Flush] Med 07/19/20 18:52 Active 10 ml FLUSH ASDIRECTED PRN Sodium Chloride 0.9% [Saline Flush] Med 07/19/20 18:52 Active 2.5 ml FLUSH ASDIRECTED PRN Saline Lock Insert [OM.PC] Stat Oth 07/19/20 18:52 Ordered Medication Orders Sodium Chloride (Saline Flush) 10 ml FLUSH ASDIRECTED PRN PRN Reason: Keep Vein Open Sodium Chloride (Saline Flush) 2.5 ml FLUSH ASDIRECTED PRN PRN Reason: Keep Vein Open Labs: Laboratory Tests 07/19/20 07/19/20 07/19/20 Range/Units 17:00 17:00 19:25 WBC 14.94 H (4.0-11.0) K/uL RBC 4.70 (4.50-5.90) M/uL Hgb 10.5 L (13.0-17.0) g/dL Hct 32.0 L (38.0-50.0) % MCV 68.1 L (80.0-98.0) fL MCH 22.3 L (27.0-32.0) pg MCHC 32.8 (31.0-37.0) g/dL RDW Std Deviation 44.6 (28.0-62.0) fl RDW Coeff of Dania 18 H (11.0-15.0) % Plt Count 331 (150-400) K/uL MPV 10.40 (7.40-12.00) fL Add Manual Diff YES Neutrophils % (Manual) 83 H (48.0-80.0) % Band Neutrophils % 10 % Lymphocytes % (Manual) 4 L (16.0-40.0) % Monocytes % (Manual) 3 (0.0-15.0) % Nucleated RBC % 0.0 /100WBC Absolute Seg Neuts 12.4 H (1.4-5.7) Band Neutrophils # 1.5 Lymphocytes # (Manual) 0.6 (0.6-2.4) Monocytes # (Manual) 0.4 (0.0-0.8) Nucleated RBCs # 0 K/uL Sodium 141 (136-148) mmol/L Potassium 4.1 (3.5-5.1) mmol/L Chloride 105 (98-107) mmol/L Carbon Dioxide 17.8 L (21.0-32.0) mmol/L BUN 30 H (7.0-18.0) mg/dL Creatinine 4.3 H (0.8-1.3) mg/dL Est Cr Clr Drug Dosing 21.74 mL/min Estimated GFR (MDRD) 19.3 ml/min Glucose 121 H (74-106) mg/dL POC Glucose 135 H (60-110) mg/dL Calcium 8.1 L (8.5-10.1) mg/dL Magnesium 2.0 (1.8-2.4) mg/dL Total Bilirubin 0.3 (0.2-1.0) mg/dL AST 39 H (15-37) IU/L ALT 18 (14-63) IU/L Alkaline Phosphatase 77 (46-116) U/L Troponin I < 0.050 (0.000-0.056) ng/mL Total Protein 6.1 L (6.4-8.2) g/dL Albumin 1.7 L (3.4-5.0) g/dL Globulin 4.4 H (2.6-4.0) g/dL Albumin/Globulin Ratio 0.4 L (0.9-1.6) Lipase 23 L (73-393) U/L Urine Color Urine Appearance Urine pH (5.0-8.0) Ur Specific [place] (1.001-1.035) Urine Protein (NEGATIVE) mg/dL Urine Glucose (UA) (NEGATIVE) mg/dL Urine Ketones (NEGATIVE) mg/dL Urine Occult Blood (NEGATIVE) Urine Nitrite (NEGATIVE) Urine Bilirubin (NEGATIVE) Urine Urobilinogen (<2.0) EU/dL Ur Leukocyte Esterase (NEGATIVE) U Hyaline Cast (Auto) (0-2/LPF) Urine RBC (0-2/HPF) Urine WBC (0-5/HPF) Ur Epithelial Cells (NONE-FEW) Urine Bacteria (NEGATIVE) Urine Mucus (NONE-MOD) 07/19/20 Range/Units 20:40 WBC (4.0-11.0) K/uL RBC (4.50-5.90) M/uL Hgb (13.0-17.0) g/dL Hct (38.0-50.0) % MCV (80.0-98.0) fL MCH (27.0-32.0) pg MCHC (31.0-37.0) g/dL RDW Std Deviation (28.0-62.0) fl RDW Coeff of Dania (11.0-15.0) % Plt Count (150-400) K/uL MPV (7.40-12.00) fL Add Manual Diff Neutrophils % (Manual) (48.0-80.0) % Band Neutrophils % % Lymphocytes % (Manual) (16.0-40.0) % Monocytes % (Manual) (0.0-15.0) % Nucleated RBC % /100WBC Absolute Seg Neuts (1.4-5.7) Band Neutrophils # Lymphocytes # (Manual) (0.6-2.4) Monocytes # (Manual) (0.0-0.8) Nucleated RBCs # K/uL Sodium (136-148) mmol/L Potassium (3.5-5.1) mmol/L Chloride (98-107) mmol/L Carbon Dioxide (21.0-32.0) mmol/L BUN (7.0-18.0) mg/dL Creatinine (0.8-1.3) mg/dL Est Cr Clr Drug Dosing mL/min Estimated GFR (MDRD) ml/min Glucose (74-106) mg/dL POC Glucose (60-110) mg/dL Calcium (8.5-10.1) mg/dL Magnesium (1.8-2.4) mg/dL Total Bilirubin (0.2-1.0) mg/dL AST (15-37) IU/L ALT (14-63) IU/L Alkaline Phosphatase (46-116) U/L Troponin I (0.000-0.056) ng/mL Total Protein (6.4-8.2) g/dL Albumin (3.4-5.0) g/dL Globulin (2.6-4.0) g/dL Albumin/Globulin Ratio (0.9-1.6) Lipase (73-393) U/L Urine Color YELLOW Urine Appearance HAZY Urine pH 6.5 (5.0-8.0) Ur Specific [place] 1.020 (1.001-1.035) Urine Protein >=300 H (NEGATIVE) mg/dL Urine Glucose (UA) 250 H (NEGATIVE) mg/dL Urine Ketones 15 H (NEGATIVE) mg/dL Urine Occult Blood MODERATE H (NEGATIVE) Urine Nitrite NEGATIVE (NEGATIVE) Urine Bilirubin NEGATIVE (NEGATIVE) Urine Urobilinogen 0.2 (<2.0) EU/dL Ur Leukocyte Esterase NEGATIVE (NEGATIVE) U Hyaline Cast (Auto) 0-2 (0-2/LPF) Urine RBC 3-5 (0-2/HPF) Urine WBC 0-2 (0-5/HPF) Ur Epithelial Cells FEW (NONE-FEW) Urine Bacteria FEW (NEGATIVE) Urine Mucus LIGHT (NONE-MOD) Meds: Medications Generic Name Dose Route Start Last Admin Trade Name Freq PRN Reason Stop Dose Admin Sodium Chloride 10 ml 07/19/20 18:52 Saline Flush FLUSH ASDIRECTED PRN Keep Vein Open Sodium Chloride 2.5 ml 07/19/20 18:52 Saline Flush FLUSH ASDIRECTED PRN Keep Vein Open Discontinued Medications Generic Name Dose Route Start Last Admin Trade Name Freq PRN Reason Stop Dose Admin Diphenhydramine HCl 50 mg 07/19/20 18:52 07/19/20 19:20 Benadryl IVPUSH 07/19/20 18:53 50 mg ONETIME ONE Administration Haloperidol Lactate 5 mg 07/19/20 18:52 07/19/20 19:21 Haldol IM 07/19/20 18:53 5 mg ONETIME ONE Administration Haloperidol Lactate 5 mg 07/19/20 23:03 07/20/20 00:15 Haldol IM 07/19/20 23:04 5 mg ONETIME ONE Administration Sodium Chloride 1,000 mls @ 999 mls/hr 07/19/20 18:52 07/19/20 19:20 Normal Saline IV 07/19/20 19:52 999 mls/hr .Bolus ONE Administration Pantoprazole Sodium 40 mg/ 10 mls @ 300 mls/hr 07/19/20 18:52 07/19/20 19:20 Sodium Chloride IV 07/19/20 18:53 300 mls/hr NOW ONE Administration Potassium Chloride 20 meq/ 50 mls @ 25 mls/hr 07/19/20 19:42 07/19/20 20:45 Premix IV 07/19/20 21:41 Not Given ONETIME ONE Metoclopramide HCl 10 mg 07/19/20 18:52 07/19/20 19:20 Reglan IVPUSH 07/19/20 18:53 10 mg ONETIME ONE Administration Departure - Departure Time of Disposition: 01:18 Condition: Fair - Discharge Information *PRESCRIPTION DRUG MONITORING PROGRAM REVIEWED*: No *COPY OF PRESCRIPTION DRUG MONITORING REPORT IN PATIENT IVELISSE: No Sepsis Event Note (ED) - Focused Exam Vital Signs: Vital Signs Temp Pulse Resp BP Pulse Ox 07/20/20 00:15 37.1 C 102 H 18 168/97 H 95 07/19/20 21:15 96 18 178/108 H 93 L 07/19/20 18:43 119 H 28 H 162/111 H 94 L 07/19/20 18:34 36.2 C 120 H 20 77/51 L 94 L
[2020-07-19] MEDS ORDERED: Pantoprazole 40 MG in Sodium Chloride 0.9% 10 ML IV ONE (18:52)
[2020-07-19] MEDS ORDERED: Metoclopramide 10 MG/2 ML SDV IVPUSH ONE (18:52)
[2020-07-19] MEDS ORDERED: Sodium Chloride 0.9% 10 ML Syringe FLUSH PRN (18:52)
[2020-07-19] MEDS ORDERED: Sodium Chloride 0.9% 1,000 ML IV ONE (18:52)
[2020-07-19] MEDS ORDERED: Haloperidol Lactate 5 MG/ML SDV IM ONE ×2 (18:52→23:03)
[2020-07-19] MEDS ORDERED: diphenhydrAMINE 50 MG/ML SDV IVPUSH ONE (18:52)
[2020-07-19] MEDS ORDERED: Sodium Chloride 0.9% 2.5 ML Syringe FLUSH PRN (18:52)
[2020-07-19] MEDS ORDERED: Potassium Chloride Riders 20 MEQ in Premix Bag 1 BAG IV ONE (19:42)
[2020-07-19 19:45] LABS: BLOOD UREA NITROGEN,BUN 30 mg/dL (7.0-18.0); CARBON DIOXIDE,CO2 17.8 mmol/L (21.0-32.0); CHLORIDE,CL 105 mmol/L (98-107); GLUCOSE RANDOM 121 mg/dL (74-106); LIPASE 23 U/L (73-393); POTASSIUM,K 4.1 mmol/L (3.5-5.1); SODIUM,NA 141 mmol/L (136-148)
[2020-07-19] MEDS ORDERED: Lactated Ringers 1,000 ML IV SCH (19:45)
--- NOTE | 2020-07-19 22:41 | CT ---
INDICATION: Abdominal pain. History of gastroparesis. COMPARISON: Report of the CT of the abdomen and pelvis from 05/31/2020 TECHNIQUE: CT examination of the abdomen and pelvis was performed without contrast enhancement using 3 mm thick axial sections from the lung bases through the pubic symphysis. Oral contrast was not administered. Please note that all CT scans at this facility use dose modulation, iterative reconstruction, and/or weight-based dosing when appropriate to reduce radiation dose to as low as reasonably achievable. FINDINGS: In the abdomen, the unenhanced liver there is a small vague low density region in the medial segment of the left lobe of the liver adjacent to the falciform ligament, consistent with a hemangioma or focal fatty infiltration. This is a common incidental finding and requires no further followup. The rest of the liver remains normal in appearance. The spleen, pancreas, and adrenals are normal in appearance. The unenhanced kidneys are normal in appearance. The gallbladder is normal in appearance. The abdominal aorta is normal in caliber with no sign of dilatation. There is no sign of retroperitoneal mass or adenopathy. There is moderate thickening of the wall of the distal esophagus consistent with reflux esophagitis, as described on the previous report. The stomach, loops of small bowel, and colon in the abdomen are normal in appearance. There is a small fat containing periumbilical hernia. In the pelvis, the appendix is normal in appearance with no sign of inflammatory process. The loops of small bowel and colon in the pelvis are normal in appearance. The prostate is normal in appearance. The urinary bladder is now moderately distended, reaching the level of the umbilicus. There is mild thickening of its wall despite the distension, consistent with bladder hypertrophy from longstanding bladder outlet obstruction. The urinary bladder is otherwise normal in appearance. There is no sign of pelvic or inguinal mass or adenopathy. There is no sign of free air or free fluid in the abdomen or pelvis. There are mild patchy ground-glass infiltrates scattered throughout both lower lungs, right greater than left, with an appearance and distribution typical of COVID-19. This is new compared to the previous chest radiograph of 07/11/2020. Incidental note is made of a bone island along the posterior right acetabulum. The osseous structures are otherwise normal in appearance for the patient`s age. IMPRESSION: New mild patchy, peripheral, ground-glass right greater than left lower lung infiltrates with an appearance typical of COVID-19. CT of the abdomen shows moderate thickening of the wall of the distal esophagus consistent with reflux esophagitis. CT of the pelvis shows moderate distention of the urinary bladder, reaching the level of the umbilicus. There is mild thickening of the wall of the urinary bladder despite the distension, consistent with bladder wall hypertrophy related to longstanding bladder outlet obstruction. Normal appearance of the prostate. Please note that all CT scans at this facility use dose modulation, iterative reconstruction, and/or weight-based dosing when appropriate to reduce radiation dose to as low as reasonably achievable. Dictated by Ramón Parrish MD @ Jul 19 2020 10:30PM Signed by Dr. Ramón Parrish @ Jul 19 2020 10:39PM
[2020-07-20 00:16] VITALS: BP 168/97; PULSE 102
== END 2020-07-20 01:30 | disposition home or self-care (01) ==
LOC: MW.ED 18:27
DX: U07.1 COVID-19 (principal); I12.9 Hypertensive chronic kidney disease with stage 1 through stage 4 chronic kidney disease, or unspecified chronic kidney disease; N18.30 Chronic kidney disease, stage 3 unspecified; E10.43 Type 1 diabetes mellitus with diabetic autonomic (poly)neuropathy; K31.84 Gastroparesis; E10.42 Type 1 diabetes mellitus with diabetic polyneuropathy; E10.21 Type 1 diabetes mellitus with diabetic nephropathy; R33.9 Retention of urine, unspecified; F41.9 Anxiety disorder, unspecified; K21.9 Gastro-esophageal reflux disease without esophagitis; E10.22 Type 1 diabetes mellitus with diabetic chronic kidney disease; Z91.013 Allergy to seafood; Z91.048 Other nonmedicinal substance allergy status; Z88.0 Allergy status to penicillin; Z79.82 Long term (current) use of aspirin; Z86.73 Personal history of transient ischemic attack (TIA), and cerebral infarction without residual deficits; Z79.899 Other long term (current) drug therapy
CPT/HCPCS: 74176; 80053; 81001; 82962; 83690; 83735; 84484; 85025; 93005; 96372; 96374; 96375; 99285; C9113; J1200; J1630; J2765; J7030; 93010; 99283

== ENCOUNTER 2020-07-20 19:44 | Emergency (ER) | payer MEDICARE, MEDICAID ==
[2020-07-20] MEDS ORDERED: Alum Hydrox/Mag Hydrox/Simeth 15 ML, Lidocaine 2% 5 ML PO ONE ×2 (20:10)
[2020-07-20] MEDS ORDERED: Pantoprazole 40 MG in Sodium Chloride 0.9% 10 ML IV ONE (20:10)
[2020-07-20] MEDS ORDERED: Sodium Chloride 0.9% 2.5 ML Syringe FLUSH PRN (20:10)
[2020-07-20] MEDS ORDERED: diphenhydrAMINE 50 MG/ML SDV IVPUSH ONE (20:10)
[2020-07-20] MEDS ORDERED: Haloperidol Lactate 5 MG/ML SDV IM ONE (20:10)
[2020-07-20] MEDS ORDERED: Sodium Chloride 0.9% 10 ML Syringe FLUSH PRN (20:10)
[2020-07-20] MEDS ORDERED: Ondansetron 4 MG/2 ML SDV IVPUSH ONE (20:10)
[2020-07-20] MEDS ORDERED: Dextrose 5%-0.9% NaCl 1,000 ML IV SCH ×2 (20:15→20:30)
[2020-07-20 21:19] LABS: BLOOD UREA NITROGEN,BUN 36 mg/dL (7.0-18.0); CHLORIDE,CL 103 mmol/L (98-107); GLUCOSE RANDOM 126 mg/dL (74-106); LIPASE 22 U/L (73-393); POTASSIUM,K 3.8 mmol/L (3.5-5.1); SODIUM,NA 135 mmol/L (136-148)
--- NOTE | 2020-07-20 22:21 | EDM.PDOC ---
ED HPI GENERAL MEDICAL PROBLEM - General Chief Complaint: General Stated Complaint: PAIN Time Seen by Provider: 07/20/20 19:46 - History of Present Illness INITIAL COMMENTS - FREE TEXT/NARRATIVE: This is a 35-year-old gentleman with a history significant for diabetes, hypertension, chronic kidney disease, DKA, TIAs, hematemesis, gluten allergy cyclical vomiting syndrome, diabetic gastroparesis, who presents ER today secondary to pain in his abdomen greatest in the midepigastric region. Patient was seen and evaluated in the ER yesterday for similar symptoms. Patient reports that after being discharged in the ER yesterday he was not able to keep any p.o. solids or liquids down. Patient reports that this evening he started having multiple episodes of emesis. Patient reports that he has been diagnosed with coronavirus and that he is due to be off his quarantine tomorrow. Patient reports secondary to being on his quarantine he has been unable to visit with his doctor's speech correction assistant with the symptoms. Patient reports that the symptoms from today are similar to his prior episodes of gastroparesis/cyclical vomiting syndrome that he has had. Patient reports he is been able to keep down some water but has had decreased urinary output secondary to diminished intake of fluids. Patient reports no blood in his emesis today. Patient reports that he was tested for coronavirus last week and was positive. Patient reports that he is due to be off quarantine tomorrow. Patient had a CT scan of his abdomen pelvis yesterday which did not reveal any acute pathology. Patient denies any abdominal or chest surgeries in the past. Patient reports his gallbladder and appendix are still in. Patient denies any history of pancreatitis. Patient has multiple allergies as above. Patient denies any alcohol or drugs. Review of systems: As per history of present illness and below otherwise all systems reviewed and negative. Past medical history: As per history of present illness and as reviewed below otherwise noncont ributory. Surgical history: As per history of present illness and as reviewed below otherwise noncontributory. Social history: No reported history of drug or alcohol abuse. Family history: As per history of present illness and as reviewed below otherwise noncontributory. Physical exam: Constitutional: Patient is oriented to person, place, and time. Appears well- developed and well-nourished. No distress. HEENT: Moist mucous membranes Head: Normocephalic and atraumatic Eyes: Right eye exhibits no discharge. Left eye exhibits no discharge. No scleral icterus Neck: Normal range of motion. No tracheal deviation present. Cardiovascular: Normal rate and regular rhythm. Tachycardic at 121 Pulmonary: Effort normal, no respiratory distress. Abdomen: Soft, nondistended, no rebound or guarding, normal active bowel sounds, patient was tenderness palpation diffusely to his abdomen greatest in the midepigastric region. Patient has no tenderness to palpation at McBurney's point. Patient has a negative Interiano sign. Patient has mild tenderness to palpation greatest in the midepigastric region. Musculoskeletal: Normal range of motion Neurologic: Alert and oriented to person, place and time. Skin: [place], warm and dry. Psychiatric: Normal mood and affect. Behavior is normal. Judgment and thought content normal. Nursing note and vital signs have been reviewed Diagnostics: CBC, CMP, lipase, Therapeutics: Haldol 5 mg IM Benadryl 50 mg IV Zofran 4 mg IV NSS wide open x1 L Protonix 80 mg IV Assessment and plan: This is a 35-year-old gentleman, who was recently tested positive for coronavirus, with multiple medical problems including diabetes, cyclical vomiting syndrome, chronic kidney disease, hypertension, chronic pain, who presents ER today with an acute exacerbation of his cyclic vomiting syndrome and abdominal pain. Patient was seen and evaluated in the ER yesterday and was treated with his usual cocktail of meds with significant improvement in his symp toms. Patient reports however that when he went home he has not been able to tolerate any p.o. solids or liquids. After medications given here in the ED, the patient is resting comfortably and sleeping. Patient reports that he feels much improved at this time. Patient was given Jell-O and apple juice and has been able to keep that down well. Patient will be discharged home with instructions to follow-up with his primary care physician. After long discussion with the patient, he is requesting that we start him on the medication that he was given here to see if it would help him at home. I will start the patient on Haldol 2 mg daily as well as Benadryl 25 mg daily for 5 days and then he is to discuss the results with his doctor to see if they want to pursue or continue this regimen. Patient understands the side effects of Haldol long-term and at this point he reports he is willing to take the risk secondary to the benefit that he is hoping to achieve from it. Reassessment at the time of disposition demonstrates that the patient is in no acute distress. The patient has remained stable throughout the entire ED visit and is without objective evidence for acute process requiring urgent intervention or hospitalization. The patient is stable for discharge, counseling is provided as documented above, discussed symptomatic treatment and specific conditions for return. I have spoken with the patient/caregiver and discussed todays findings, in addition to providing specific details for the plan of care. Questions are answered and there is agreement with the plan. Generalized Pain Score (Numeric/FACES): 10 - Related Data Allergies Allergy/AdvReac Type Severity Reaction Status Date / Time shrimp Allergy Severe Swelling Verified 07/19/20 18:36 iodine Allergy Unknown Anaphylactic Verified 07/19/20 18:36 Shock Penicillins Allergy Unknown Anaphylactic Verified 07/19/20 18:36 Shock shellfish derived Allergy Anaphylactic Verified 07/19/20 18:36 Shock gluten Allergy Severe Muscle Uncoded 07/19/20 18:36 Aches Home Meds: Home Meds Doxazosin [Cardura] 8 mg PO BEDTIME 09/29/19 [History] Metoprolol Succinate 200 mg PO DAILY 09/29/19 [History] Torsemide 20 mg PO BID 09/29/19 [History] atorvaSTATin [Lipitor] 80 mg PO BEDTIME 09/29/19 [History] Insulin Aspart [NovoLOG] 0 unit SUBCUT .UP TO 60 UN DAILY 09/30/19 [History] Metoclopramide [Reglan] 5 mg PO TIDAC #90 tablet 10/10/19 [Rx] Aspirin [Adult Low Dose Aspirin EC] 81 mg PO DAILY 12/07/19 [History] Enalapril Maleate 20 mg PO DAILY 12/07/19 [History] Insulin Glarg,Human.Rec.Analog [Lantus] 38 mg SUBCUT BEDTIME 12/07/19 [History] Iron Ag,Ps/C/Fa6/B12/Zn/SA/Sto [Niferex Tablet] 150 mg PO BID 12/07/19 [History] Sertraline [Zoloft] 50 mg PO DAILY 12/07/19 [History] Sucralfate 1 gm PO QIDACANDBED 12/07/19 [History] amLODIPine Besylate [Amlodipine Besylate] 10 mg PO DAILY 12/07/19 [History] hydroCHLOROthiazide [Hydrochlorothiazide] 25 mg PO DAILY 12/07/19 [History] Pantoprazole Sodium [Protonix] 40 mg PO DAILY 30 Days #30 suspdr.pkt 05/31/20 [Rx] hydrALAZINE [Apresoline] 50 mg PO Q8H #60 tablet 07/14/20 [Rx] oxyCODONE HCl/Acetaminophen [Percocet 5-325 mg Tablet] 1 each PO Q6H PRN 3 Days #12 tablet 07/17/20 [Rx] diphenhydrAMINE [Benadryl] 50 mg PO BEDTIME #5 cap 07/20/20 [Rx] haloperidoL [Haldol] 2 mg PO BEDTIME #5 tablet 07/20/20 [Rx] Past Medical History - Past Health History Medical/Surgical History: Denies Medical/Surgical History HEENT History: Reports: Impaired Vision Other HEENT History: blind right eye Cardiovascular History: Reports: Hypertension Respiratory History: Reports: None Gastrointestinal History: Reports: Gastritis, GERD, Hiatal Hernia, Other (See Below) Other Gastrointestinal History: h/o gastric ulcers, h/o hiatal hernia; gastroparesis Genitourinary History: Reports: Chronic Renal Insuffiency, Diabetic Nephropathy Musculoskeletal History: Reports: Amputation Other Musculoskeletal History: RLE Neurological History: Reports: Neuropathy, Peripheral Other Neuro History: stroke Psychiatric History: Reports: Anxiety Endocrine/Metabolic History: Reports: Diabetes, Type I Other Endocrine/Metabolic History: brittle diabetic. History of hyperkalemia and DKA Insulin Pump Model and [place] Operator: None Hematologic History: Reports: Anemia Immunologic History: Reports: None Oncologic (Cancer) History: Reports: None Dermatologic History: Reports: Other (See Below) Other Dermatologic History: diabetic foot ulcers - Infectious Disease History Infectious Disease History: Reports: Chicken Pox Other Infectious Disease History: 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 - Past Surgical History Head Surgeries/Procedures: Reports: None HEENT Surgical History: Reports: None Respiratory Surgical History: Reports: None GI Surgical History: Reports: None Male Surgical History: Reports: None Endocrine Surgical History: Reports: None Oncologic Surgical History: Reports: None Dermatological Surgical History: Reports: None Social & Family History - Family History Family Medical History: Noncontributory Cardiac: Reports: High Cholesterol, Hypertension OBGYN: Reports: Neurological: Reports: None Psychiatric: Reports: Anxiety - Caffeine Use Caffeine Use: Reports: None Other Caffeine Use: daily Caffeine Use Comment: patient is uncooperated - Recreational Drug Use Recreational Drug Use: Yes Drug Use in Last 12 Months: Yes Recreational Drug Type: Reports: Heroin, Marijuana/Hashish, Methamphetamine, Oxycodone Recreational Drug Use Frequency: Socially - Living Situation & Occupation Living situation: Reports: Single Occupation: Employed (Currently unemployed.) ED ROS GENERAL - Review of Systems Review Of Systems: See Below ED EXAM, GENERAL - Physical Exam Exam: See Below #1 Interpretation EKG Interpretation Comments: EKG: As interpreted by ER physician: Rula: Nonspecific ST-T wave abnormalities Normal axis No evidence of ST elevation LA Sinus tachycardia 112 Course - Vital Signs Last Recorded V/S: Last Vital Signs Temp 97.6 F 07/20/20 19:46 Pulse 102 H 07/20/20 22:13 Resp 16 07/20/20 22:13 BP 206/116 H 07/20/20 21:28 Pulse Ox 96 07/20/20 22:13 - Orders/Labs/Meds Orders: Active Orders 24 hr Category Date Time Status UA W/FRANTZ RFLX IF INDICATED [URIN] Stat Lab 07/20/20 20:10 Ordered Dextrose 5%-0.9% NaCl [Dextrose 5%-Normal Saline] 1,000 Med 07/20/20 20:15 Active ml IV ASDIRECTED Dextrose 5%-0.9% NaCl [Dextrose 5%-Normal Saline] 1,000 Med 07/20/20 20:30 Active ml IV ASDIRECTED Sodium Chloride 0.9% [Saline Flush] Med 07/20/20 20:10 Active 10 ml FLUSH ASDIRECTED PRN Sodium Chloride 0.9% [Saline Flush] Med 07/20/20 20:10 Active 2.5 ml FLUSH ASDIRECTED PRN Saline Lock Insert [OM.PC] Stat Oth 07/20/20 20:10 Ordered Medication Orders Dextrose/Sodium Chloride (Dextrose 5%-Normal Saline) 1,000 mls @ 1,000 mls/hr IV ASDIRECTED MICHAEL Dextrose/Sodium Chloride (Dextrose 5%-Normal Saline) 1,000 mls @ 999 mls/hr IV ASDIRECTED MICHAEL Sodium Chloride (Saline Flush) 10 ml FLUSH ASDIRECTED PRN PRN Reason: Keep Vein Open Last Admin: 07/20/20 20:22 Dose: 10 ml Documented by: [id number] Sodium Chloride (Saline Flush) 2.5 ml FLUSH ASDIRECTED PRN PRN Reason: Keep Vein Open Last Admin: 07/20/20 20:22 Dose: 2.5 ml Documented by: [id number] Labs: Laboratory Tests 07/20/20 07/20/20 Range/Units 20:45 20:45 WBC 13.87 H (4.0-11.0) K/uL RBC 4.34 L (4.50-5.90) M/uL Hgb 9.5 L (13.0-17.0) g/dL Hct 29.3 L (38.0-50.0) % MCV 67.5 L (80.0-98.0) fL MCH 21.9 L (27.0-32.0) pg MCHC 32.4 (31.0-37.0) g/dL RDW Std Deviation 44.0 (28.0-62.0) fl RDW Coeff of Dania 18 H (11.0-15.0) % Plt Count 356 (150-400) K/uL MPV 9.80 (7.40-12.00) fL Neut % (Auto) 84.4 H (48.0-80.0) % Lymph % (Auto) 8.3 L (16.0-40.0) % [place] % (Auto) 6.9 (0.0-15.0) % Eos % (Auto) 0.3 (0.0-7.0) % Baso % (Auto) 0.1 (0.0-1.5) % Neut # (Auto) 11.7 H (1.4-5.7) K/uL Lymph # (Auto) 1.2 (0.6-2.4) K/uL [place] # (Auto) 1.0 H (0.0-0.8) K/uL Eos # (Auto) 0.0 (0.0-0.7) K/uL Baso # (Auto) 0.0 (0.0-0.1) K/uL Nucleated RBC % 0.0 /100WBC Nucleated RBCs # 0 K/uL Sodium 135 L (136-148) mmol/L Potassium 3.8 (3.5-5.1) mmol/L Chloride 103 (98-107) mmol/L Carbon Dioxide 19.0 L (21.0-32.0) mmol/L BUN 36 H (7.0-18.0) mg/dL Creatinine 4.6 H (0.8-1.3) mg/dL Est Cr Clr Drug Dosing TNP Estimated GFR (MDRD) 17.8 ml/min Glucose 126 H (74-106) mg/dL Calcium 7.6 L (8.5-10.1) mg/dL Total Bilirubin 0.3 (0.2-1.0) mg/dL AST 40 H (15-37) IU/L ALT 19 (14-63) IU/L Alkaline Phosphatase 73 (46-116) U/L Total Protein 5.9 L (6.4-8.2) g/dL Albumin 1.6 L (3.4-5.0) g/dL Globulin 4.3 H (2.6-4.0) g/dL Albumin/Globulin Ratio 0.4 L (0.9-1.6) Lipase 22 L (73-393) U/L Meds: Medications Generic Name Dose Route Start Last Admin Trade Name Freq PRN Reason Stop Dose Admin Dextrose/Sodium Chloride 1,000 mls @ 1,000 mls/hr 07/20/20 20:15 Dextrose 5%-Normal Saline IV ASDIRECTED MICHAEL Dextrose/Sodium Chloride 1,000 mls @ 999 mls/hr 07/20/20 20:30 Dextrose 5%-Normal Saline IV ASDIRECTED MICHAEL Sodium Chloride 10 ml 07/20/20 20:10 07/20/20 20:22 Saline Flush FLUSH 10 ml ASDIRECTED PRN Administration Keep Vein Open Sodium Chloride 2.5 ml 07/20/20 20:10 07/20/20 20:22 Saline Flush FLUSH 2.5 ml ASDIRECTED PRN Administration Keep Vein Open Discontinued Medications Generic Name Dose Route Start Last Admin Trade Name Freq PRN Reason Stop Dose Admin Al Hydroxide/Mg Hydroxide 15 0 ml 07/20/20 20:10 07/20/20 20:21 ml/ Lidocaine HCl 5 ml PO 07/20/20 20:11 20 each ONETIME ONE Administration Diphenhydramine HCl 50 mg 07/20/20 20:10 07/20/20 20:21 Benadryl IVPUSH 07/20/20 20:11 50 mg ONETIME ONE Administration Haloperidol Lactate 5 mg 07/20/20 20:10 07/20/20 20:21 Haldol IM 07/20/20 20:11 5 mg ONETIME ONE Administration Pantoprazole Sodium 40 mg/ 10 mls @ 300 mls/hr 07/20/20 20:10 07/20/20 20:21 Sodium Chloride IV 07/20/20 20:11 300 mls/hr NOW ONE Administration Ondansetron HCl 4 mg 07/20/20 20:10 07/20/20 20:21 Zofran IVPUSH 07/20/20 20:11 4 mg ONETIME ONE Administration Departure - Departure Time of Disposition: 22:27 Disposition: Home, Self-Care 01 Clinical Impression: Diabetic gastroparesis, Dehydration Abdominal pain Qualifiers: Abdominal location: generalized Qualified Code(s): R10.84 - Generalized abdominal pain Hypertension Qualifiers: Hypertension type: essential hypertension Qualified Code(s): I10 - Essential (primary) hypertension - Discharge Information Instructions: Dehydration, Adult, [id number], Abdominal Pain, Adult, [id number] Referrals: Fitz Infante MD [Primary Care Provider] - Forms: ED Department Discharge Additional Instructions: You were seen and evaluated in the ER today secondary to your vomiting. It appe ars that the medications that we gave you here appear to help you significantly. After long discussion, we have agreed to start you on Haldol 2 mg orally daily x5 days as well as Benadryl 25 mg orally daily for 5 days. Please see your doctor in 5 days to evaluate if this medication has helped your symptoms and to see if they want to continue it long-term if it has benefited you. The following information is given to patients seen in the emergency department who are being discharged to home. This information is to outline your options for follow-up care. We provide all patients seen in our emergency department with a follow-up referral. The need for follow-up, as well as the timing and circumstances, are variable depending upon the specifics of your emergency department visit. If you don't have a primary care physician on staff, we will provide you with a referral. We always advise you to contact your personal physician following an emergency department visit to inform them of the circumstance of the visit and for follow-up with them and/or the need for any referrals to a consulting specialist. The emergency department will also refer you to a specialist when appropriate. This referral assures that you have the opportunity for follow-up care with a specialist. All of these measure are taken in an effort to provide you with optimal care, which includes your follow-up. Under all circumstances we always encourage you to contact your private physician who remains a resource for coordinating your care. When calling for follow-up care, please make the office aware that this follow-up is from your recent emergency room visit. If for any reason you are refused follow-up, please contact the [facility] Emergency Department at and asked to speak to the emergency department charge nurse. [facility] [address] [place] [address] [place] [address] Sepsis Event Note (ED) - Evaluation Sepsis Screening Result: Possible Sepsis Risk - Focused Exam Vital Signs: Vital Signs Temp Pulse Resp BP Pulse Ox 07/20/20 22:13 102 H 16 96 07/20/20 21:28 106 H 16 206/116 H 98 07/20/20 19:46 97.6 F 113 H 28 H 197/116 H 96 - My Orders Last 24 Hours: My Active Orders 07/20/20 20:10 UA W/FRANTZ RFLX IF INDICATED [URIN] Stat Sodium Chloride 0.9% [Saline Flush] 10 ml FLUSH ASDIRECTED PRN Sodium Chloride 0.9% [Saline Flush] 2.5 ml FLUSH ASDIRECTED PRN Saline Lock Insert [OM.PC] Stat 07/20/20 20:15 Dextrose 5%-0.9% NaCl [Dextrose 5%-Normal Saline] 1,000 ml IV ASDIRECTED 07/20/20 20:30 Dextrose 5%-0.9% NaCl [Dextrose 5%-Normal Saline] 1,000 ml IV ASDIRECTED - Assessment/Plan Last 24 Hours: My Active Orders 07/20/20 20:10 UA W/FRANTZ RFLX IF INDICATED [URIN] Stat Sodium Chloride 0.9% [Saline Flush] 10 ml FLUSH ASDIRECTED PRN Sodium Chloride 0.9% [Saline Flush] 2.5 ml FLUSH ASDIRECTED PRN Saline Lock Insert [OM.PC] Stat 07/20/20 20:15 Dextrose 5%-0.9% NaCl [Dextrose 5%-Normal Saline] 1,000 ml IV ASDIRECTED 07/20/20 20:30 Dextrose 5%-0.9% NaCl [Dextrose 5%-Normal Saline] 1,000 ml IV ASDIRECTED
[2020-07-20 22:46] VITALS: BP 193/109; PULSE 101
== END 2020-07-20 22:46 | disposition home or self-care (01) ==
LOC: MW.ED 19:44
DX: E10.43 Type 1 diabetes mellitus with diabetic autonomic (poly)neuropathy (principal); K31.84 Gastroparesis; E86.0 Dehydration; I12.9 Hypertensive chronic kidney disease with stage 1 through stage 4 chronic kidney disease, or unspecified chronic kidney disease; N18.9 Chronic kidney disease, unspecified; K21.9 Gastro-esophageal reflux disease without esophagitis; E10.42 Type 1 diabetes mellitus with diabetic polyneuropathy; E10.22 Type 1 diabetes mellitus with diabetic chronic kidney disease; Z86.73 Personal history of transient ischemic attack (TIA), and cerebral infarction without residual deficits; Z91.013 Allergy to seafood; Z91.048 Other nonmedicinal substance allergy status; Z88.0 Allergy status to penicillin; Z79.82 Long term (current) use of aspirin; Z79.899 Other long term (current) drug therapy
CPT/HCPCS: 36415; 80053; 83690; 85025; 93005; 96372; 96374; 96375; 99284; A9270; C9113; J1200; J1630; J2405

== ENCOUNTER 2020-07-23 00:14 | Emergency (ER) | payer MEDICARE, MEDICAID ==
[2020-07-23] MEDS ORDERED: Pantoprazole 40 MG in Sodium Chloride 0.9% 10 ML IV ONE (00:23)
[2020-07-23] MEDS ORDERED: Ketorolac 15 MG/ML SDV IVPUSH ONE (00:23)
[2020-07-23] MEDS ORDERED: Haloperidol Lactate 5 MG/ML SDV IM ONE (00:23)
[2020-07-23] MEDS ORDERED: Sodium Chloride 0.9% 10 ML Syringe FLUSH PRN (00:23)
[2020-07-23] MEDS ORDERED: Ondansetron 4 MG/2 ML SDV IVPUSH ONE (00:23)
[2020-07-23] MEDS ORDERED: diphenhydrAMINE 50 MG/ML SDV IVPUSH ONE (00:23)
[2020-07-23] MEDS ORDERED: Sodium Chloride 0.9% 1,000 ML IV ONE (00:23)
[2020-07-23] MEDS ORDERED: Sodium Chloride 0.9% 2.5 ML Syringe FLUSH PRN (00:23)
[2020-07-23 00:59] LABS: CARBON DIOXIDE,CO2 19.5 mmol/L (21.0-32.0); POTASSIUM,K 3.5 mmol/L (3.5-5.1)
--- NOTE | 2020-07-23 01:02 | EDM.PDOC ---
ED HPI GENERAL MEDICAL PROBLEM - General Chief Complaint: Gastrointestinal Problem Stated Complaint: VOMITING Time Seen by Provider: 07/23/20 00:20 - History of Present Illness INITIAL COMMENTS - FREE TEXT/NARRATIVE: HISTORY AND PHYSICAL: History of present illness: This is a 35-year-old gentleman with a history significant for diabetes, hypertension, chronic kidney disease, DKA, TIAs, hematemesis, gluten allergy cyclical vomiting syndrome, diabetic gastroparesis, who presents ER today secondary to pain in his abdomen greatest in the midepigastric region as well as episodes of blood-tinged vomit. Patient has been seen and evaluated in the ER multiple times this week secondary to not being able to see his primary care physician for his symptoms secondary to being positive for coronavirus. Patient reports normally he is able to follow-up with his primary care doctor and is been able to assist him with his symptoms over the last several weeks to month. Patient reports that after being discharged from the hospital with a prescription for Haldol he attempted to obtain it from the pharmacy however they will not be able to obtain Haldol for him until tomorrow at 4 PM. Patient reports that he has had decreased p.o. intakes of both solids and liquids. Patient reports that he is officially off quarantine for coronavirus. Review of systems: As per history of present illness and below otherwise all systems reviewed and negative. Past medical history: As per history of present illness and as reviewed below otherwise noncontributory. Surgical history: As per history of present illness and as reviewed below otherwise noncontributory. Social history: No reported history of drug or alcohol abuse. Family history: As per history of present illness and as reviewed below otherwise noncontributory. Physical exam: Constitutional: Patient is oriented to person, place, and time. Appears well- developed and well-nourished. No distress. HEENT: Moist mucous membranes Head: Normocephalic and atraumatic Eyes: Right eye exhibits no discharge. Left eye exhibits no discharge. No scleral icterus Neck: Normal range of motion. No tracheal deviation present. Cardiovascular: Normal rate and regular rhythm. Pulmonary: Effort normal, no respiratory distress. Abd: Soft, nondistended, no rebound/guarding, no psoas or obturator signs, no tenderness at Mcberney's point, no Interiano's sign. Pt does not present with an exam that would be consistent with an acute surgical abdomen at this time, mild tenderness palpation to the midepigastric region. Patient appears more comfortable than during prior ER evaluations. Musculoskeletal: Normal range of motion Neurologic: Alert and oriented to person, place and time. Skin: Meyers, warm and dry. Psychiatric: Normal mood and affect. Behavior is normal. Judgment and thought content normal. Nursing note and vital signs have been reviewed Assessment and plan: This is a 35-year-old gentleman with history significant for sickle vomiting syndrome, diabetic gastroparesis, who presents ER today secondary to persistent nausea and vomiting at home. Patient will be given Haldol, Benadryl, Zofran, Protonix, NSS to assist with the symptoms. Patient reports to respond to this regimen fairly well in the past. Patient reports significant improvement in symptoms after receiving the medication. Patient will be monitored in the ER for stability. 1:30 AM: Patient's labs appear to be at baseline. Patient is clinically hemodynamically stable and feels much better. Patient is sleeping in the room reports the medication is helped intravenously. Patient be discharged home with instructions to get his Haldol filled tomorrow to see if it will help and to follow-up with his doctor to see if his doctor agrees with trying p.o. Haldol for his symptoms. Reassessment at the time of disposition demonstrates that the patient is in no acute distress. The patient has remained stable throughout the entire ED visit and is without objective evidence for acute process requiring urgent intervention or hospitalization. The patient is stable for discharge, counseling is provided as documented above, discussed symptomatic treatment and specific conditions for return. I have spoken with the patient/caregiver and discussed todays findings, in addition to providing specific details for the plan of care. Questions are answered and there is agreement with the plan. Definitive disposition and diagnosis as appropriate pending reevaluation and review of above. - Related Data Allergies Allergy/AdvReac Type Severity Reaction Status Date / Time shrimp Allergy Severe Swelling Verified 08/04/20 01:04 iodine Allergy Unknown Anaphylactic Verified 08/04/20 01:04 Shock Penicillins Allergy Unknown Anaphylactic Verified 08/04/20 01:04 Shock shellfish derived Allergy Anaphylactic Verified 08/04/20 01:04 Shock gluten Allergy Severe Muscle Uncoded 08/04/20 01:04 Aches Home Meds: Home Meds Doxazosin [Cardura] 8 mg PO BEDTIME 09/29/19 [History] Metoprolol Succinate 200 mg PO DAILY 09/29/19 [History] Torsemide 20 mg PO BID 09/29/19 [History] atorvaSTATin [Lipitor] 80 mg PO BEDTIME 09/29/19 [History] Insulin Aspart [NovoLOG] 0 unit SUBCUT .UP TO 60 UN DAILY 09/30/19 [History] Metoclopramide [Reglan] 5 mg PO TIDAC #90 tablet 10/10/19 [Rx] Aspirin [Adult Low Dose Aspirin EC] 81 mg PO DAILY 12/07/19 [History] Enalapril Maleate 20 mg PO DAILY 12/07/19 [History] Insulin Glarg,Human.Rec.Analog [Lantus] 38 mg SUBCUT BEDTIME 12/07/19 [History] Iron Ag,Ps/C/Fa6/B12/Zn/SA/Sto [Niferex Tablet] 150 mg PO BID 12/07/19 [History] Sertraline [Zoloft] 50 mg PO DAILY 12/07/19 [History] Sucralfate 1 gm PO QIDACANDBED 12/07/19 [History] amLODIPine Besylate [Amlodipine Besylate] 10 mg PO DAILY 12/07/19 [History] hydroCHLOROthiazide [Hydrochlorothiazide] 25 mg PO DAILY 12/07/19 [History] Pantoprazole Sodium [Protonix] 40 mg PO DAILY 30 Days #30 suspdr.pkt 05/31/20 [Rx] hydrALAZINE [Apresoline] 50 mg PO Q8H #60 tablet 07/14/20 [Rx] oxyCODONE HCl/Acetaminophen [Percocet 5-325 mg Tablet] 1 each PO Q6H PRN 3 Days #12 tablet 07/17/20 [Rx] diphenhydrAMINE [Benadryl] 50 mg PO BEDTIME #5 cap 07/20/20 [Rx] haloperidoL [Haldol] 2 mg PO BEDTIME #5 tablet 07/20/20 [Rx] Past Medical History - Past Health History Medical/Surgical History: Denies Medical/Surgical History HEENT History: Reports: Impaired Vision Other HEENT History: blind right eye Cardiovascular History: Reports: Hypertension Respiratory History: Reports: None Gastrointestinal History: Reports: Gastritis, GERD, Hiatal Hernia, Other (See Below) Other Gastrointestinal History: h/o gastric ulcers, h/o hiatal hernia; gastroparesis Genitourinary History: Reports: Chronic Renal Insuffiency, Diabetic Nephropathy Musculoskeletal History: Reports: Amputation Other Musculoskeletal History: RLE Neurological History: Reports: Neuropathy, Peripheral Other Neuro History: stroke Psychiatric History: Reports: Anxiety Endocrine/Metabolic History: Reports: Diabetes, Type I Other Endocrine/Metabolic History: brittle diabetic. History of hyperkalemia and DKA Insulin Pump Model and Jukebox Operator: None Hematologic History: Reports: Anemia Immunologic History: Reports: None Oncologic (Cancer) History: Reports: None Dermatologic History: Reports: Other (See Below) Other Dermatologic History: diabetic foot ulcers - Infectious Disease History Infectious Disease History: Reports: Chicken Pox Other Infectious Disease History: MRSA indicated on history and physical, p atient denies knowledge of this. - Past Surgical History Head Surgeries/Procedures: Reports: None HEENT Surgical History: Reports: None Respiratory Surgical History: Reports: None GI Surgical History: Reports: None Male Surgical History: Reports: None Endocrine Surgical History: Reports: None Oncologic Surgical History: Reports: None Dermatological Surgical History: Reports: None Social & Family History - Family History Family Medical History: No Pertinent Family History Cardiac: Reports: High Cholesterol, Hypertension OBGYN: Reports: Neurological: Reports: None Psychiatric: Reports: Anxiety - Tobacco Use Tobacco Use Status *Q: Unknown Ever Used Tobacco - Caffeine Use Caffeine Use: Reports: None Other Caffeine Use: daily Caffeine Use Comment: patient is uncooperated - Living Situation & Occupation Living situation: Reports: Single Occupation: Employed (Currently unemployed.) ED ROS GENERAL - Review of Systems Review Of Systems: See Below ED EXAM, GENERAL - Physical Exam Exam: See Below Course - Vital Signs Last Recorded V/S: Last Vital Signs Temp 98.6 F 07/23/20 00:16 Pulse 93 07/23/20 01:30 Resp 16 07/23/20 01:30 BP 202/118 H 07/23/20 01:30 Pulse Ox 98 07/23/20 01:30 - Orders/Labs/Meds Labs: Laboratory Tests 07/23/20 07/23/20 Range/Units 00:30 00:30 WBC 9.96 (4.0-11.0) K/uL RBC 4.36 L (4.50-5.90) M/uL Hgb 9.7 L (13.0-17.0) g/dL Hct 28.9 L (38.0-50.0) % MCV 66.3 L (80.0-98.0) fL MCH 22.2 L (27.0-32.0) pg MCHC 33.6 (31.0-37.0) g/dL RDW Std Deviation 42.7 (28.0-62.0) fl RDW Coeff of Dania 19 H (11.0-15.0) % Plt Count 445 H (150-400) K/uL MPV 10.20 (7.40-12.00) fL Neut % (Auto) 78.6 (48.0-80.0) % Lymph % (Auto) 11.5 L (16.0-40.0) % Carter % (Auto) 7.6 (0.0-15.0) % Eos % (Auto) 2.1 (0.0-7.0) % Baso % (Auto) 0.2 (0.0-1.5) % Neut # (Auto) 7.8 H (1.4-5.7) K/uL Lymph # (Auto) 1.2 (0.6-2.4) K/uL Carter # (Auto) 0.8 (0.0-0.8) K/uL Eos # (Auto) 0.2 (0.0-0.7) K/uL Baso # (Auto) 0.0 (0.0-0.1) K/uL Sodium 138 (136-148) mmol/L Potassium 3.5 (3.5-5.1) mmol/L Chloride 105 (98-107) mmol/L Carbon Dioxide 19.5 L (21.0-32.0) mmol/L BUN 29 H (7.0-18.0) mg/dL Creatinine 4.6 H (0.8-1.3) mg/dL Est Cr Clr Drug Dosing 18.87 mL/min Estimated GFR (MDRD) 17.8 ml/min Glucose 96 (74-106) mg/dL Calcium 8.1 L (8.5-10.1) mg/dL Total Bilirubin 0.3 (0.2-1.0) mg/dL AST 23 (15-37) IU/L ALT 12 L (14-63) IU/L Alkaline Phosphatase 73 (46-116) U/L Total Protein 6.6 (6.4-8.2) g/dL Albumin 1.5 L (3.4-5.0) g/dL Globulin 5.1 H (2.6-4.0) g/dL Albumin/Globulin Ratio 0.3 L (0.9-1.6) Lipase 24 L (73-393) U/L Meds: Medications Discontinued Medications Generic Name Dose Route Start Last Admin Trade Name Freq PRN Reason Stop Dose Admin Diphenhydramine HCl 50 mg 07/23/20 00:23 07/23/20 00:38 Benadryl IVPUSH 07/23/20 00:24 50 mg ONETIME ONE Administration Haloperidol Lactate 5 mg 07/23/20 00:23 07/23/20 00:38 Haldol IM 07/23/20 00:24 5 mg ONETIME ONE Administration Sodium Chloride 1,000 mls @ 999 mls/hr 07/23/20 00:23 07/23/20 00:37 Normal Saline IV 07/23/20 01:23 999 mls/hr .Bolus ONE Administration Pantoprazole Sodium 40 mg/ 10 mls @ 300 mls/hr 07/23/20 00:23 07/23/20 00:38 Sodium Chloride IV 07/23/20 00:24 300 mls/hr NOW ONE Administration Ketorolac Tromethamine 15 mg 07/23/20 00:23 07/23/20 00:39 Toradol IVPUSH 07/23/20 00:24 15 mg ONETIME ONE Administration Ondansetron HCl 4 mg 07/23/20 00:23 07/23/20 00:37 Zofran IVPUSH 07/23/20 00:24 4 mg ONETIME ONE Administration Sodium Chloride 10 ml 07/23/20 00:23 07/23/20 00:37 Saline Flush FLUSH 10 ml ASDIRECTED PRN Administration Keep Vein Open Sodium Chloride 2.5 ml 07/23/20 00:23 07/23/20 00:37 Saline Flush FLUSH 2.5 ml ASDIRECTED PRN Administration Keep Vein Open Departure - Departure Time of Disposition: 01:29 Disposition: Home, Self-Care 01 Condition: Good Clinical Impression: Intractable nausea and vomiting, Dehydration, Diabetic gastroparesis, Cyclical vomiting syndrome Abdominal pain Qualifiers: Abdominal location: generalized Qualified Code(s): R10.84 - Generalized abdominal pain - Discharge Information Instructions: Nausea, Adult, Abdominal Pain, Adult, Nausea and Vomiting, Adult, [id number] Referrals: PCP,None [Primary Care Provider] - Forms: ED Department Discharge Additional Instructions: Please get your medication filled tomorrow and see if the Haldol might help you with your symptoms at home. Make an appointment to see your family doctor this week to be reevaluated now that you are no longer under quarantine for coronavirus. The following information is given to patients seen in the emergency department who are being discharged to home. This information is to outline your options for follow-up care. We provide all patients seen in our emergency department with a follow-up referral. The need for follow-up, as well as the timing and circumstances, are variable depending upon the specifics of your emergency department visit. If you don't have a primary care physician on staff, we will provide you with a referral. We always advise you to contact your personal physician following an emergency department visit to inform them of the circumstance of the visit and for follow-up with them and/or the need for any referrals to a consulting specialist. The emergency department will also refer you to a specialist when appropriate. This referral assures that you have the opportunity for follow-up care with a specialist. All of these measure are taken in an effort to provide you with optimal care, which includes your follow-up. Under all circumstances we always encourage you to contact your private physician who remains a resource for coordinating your care. When calling for follow-up care, please make the office aware that this follow-up is from your recent emergency room visit. If for any reason you are refused follow-up, please contact the [facility] Emergency Department at and asked to speak to the emergency department charge nurse. [facility] [address] [place] [id number] [id number] Sepsis Event Note (ED) - Evaluation Sepsis Screening Result: No Definite Risk
[2020-07-23 01:53] VITALS: BP 202/118; PULSE 93
== END 2020-07-23 01:43 | disposition home or self-care (01) ==
LOC: MW.ED 00:14
DX: E10.43 Type 1 diabetes mellitus with diabetic autonomic (poly)neuropathy (principal); K31.84 Gastroparesis; E86.0 Dehydration; R11.15 Cyclical vomiting syndrome unrelated to migraine; I12.9 Hypertensive chronic kidney disease with stage 1 through stage 4 chronic kidney disease, or unspecified chronic kidney disease; N18.9 Chronic kidney disease, unspecified; E10.42 Type 1 diabetes mellitus with diabetic polyneuropathy; K21.9 Gastro-esophageal reflux disease without esophagitis; F41.9 Anxiety disorder, unspecified; E10.21 Type 1 diabetes mellitus with diabetic nephropathy; E10.22 Type 1 diabetes mellitus with diabetic chronic kidney disease; Z79.82 Long term (current) use of aspirin; Z79.4 Long term (current) use of insulin; Z79.899 Other long term (current) drug therapy; Z91.013 Allergy to seafood; Z91.048 Other nonmedicinal substance allergy status; Z88.0 Allergy status to penicillin; Z86.73 Personal history of transient ischemic attack (TIA), and cerebral infarction without residual deficits
CPT/HCPCS: 36415; 80053; 83690; 85025; 96372; 96374; 96375; 99285; C9113; J1200; J1630; J1885; J2405; J7030; 99283

== ENCOUNTER 2020-08-04 01:00 | Emergency (ER) | payer MEDICARE, MEDICAID ==
[2020-08-04] MEDS ORDERED: Sodium Chloride 0.9% 10 ML SDV IV PRN (01:05)
[2020-08-04] MEDS ORDERED: Lactated Ringers 1,000 ML IV ONE ×2 (01:05→01:15)
[2020-08-04] MEDS ORDERED: Sodium Chloride 0.9% 10 ML Syringe FLUSH PRN (01:05)
[2020-08-04] MEDS ORDERED: Sodium Chloride 0.9% 2.5 ML Syringe FLUSH PRN (01:05)
[2020-08-04] MEDS ORDERED: Haloperidol Lactate 5 MG/ML SDV IM ONE (01:07)
[2020-08-04] MEDS ORDERED: Pantoprazole 40 MG in Sodium Chloride 0.9% 20 ML IVPUSH ONE (01:10)
--- NOTE | 2020-08-04 01:13 | EDM.PDOC ---
ED HPI GENERAL MEDICAL PROBLEM - General Chief Complaint: Abdominal Pain Stated Complaint: AMB. Time Seen by Provider: 08/04/20 01:03 Source of Information: Reports: Patient, EMS History Limitations: Reports: No Limitations - History of Present Illness INITIAL COMMENTS - FREE TEXT/NARRATIVE: 35-year-old male with history of upper GI bleed, cyclic vomiting syndrome, diabetic gastroparesis, CKD, hiatal hernia, esophagitis, DKA was brought in by ambulance for epigastric pain and vomiting blood today. Pain is localized into the epigastric area, described as burning sensation, severe, constant, no alleviating or exacerbating factors, nonradiating. EMS noted blood sugar = 416, blood pressure = 219/123. He denies fever, chills, diarrhea, shortness of breath, chest pain. He was tested positive for Covid 2 weeks ago. He has been seen in our ER on 07/11, 07/16, 07/17, 07/19, 07/20, 07/23. He claims his last EGD was [address] [facility]. ROS: A 10-point review of systems, other than pertinent positives and negatives as stated per HPI, is otherwise negative Past medical history: No additional pertinent history Past Surgical history: No additional pertinent history Social history: No additional pertinent history Family history: No additional pertinent history PHYSICAL EXAM General: AOx4, GCS = 15, moderate distress HEENT: dry mucous membrane Neck: supple, no meningismus, no Kernig or Brudzinski Cardiac: S1S2 tachycardia Respiratory: CTAB, no crackles or rales, no wheezing Abdomen: Soft, epigastric ttp, no rebound or guarding, nondistended, no pulsatile mass. no psoas or obturator signs, no tenderness at Mcberney's point, no Interiano's sign. Back: nontender Musculoskeletal: NVI distally, no deformity, right BKA. Neuro: No focal deficits, CN 2 - 12 WNL. Abdomen Pain Score (Numeric/FACES): 8 - Related Data Allergies Allergy/AdvReac Type Severity Reaction Status Date / Time shrimp Allergy Severe Swelling Verified 08/04/20 01:04 iodine Allergy Unknown Anaphylactic Verified 08/04/20 01:04 Shock Penicillins Allergy Unknown Anaphylactic Verified 08/04/20 01:04 Shock shellfish derived Allergy Anaphylactic Verified 08/04/20 01:04 Shock gluten Allergy Severe Muscle Uncoded 08/04/20 01:04 Aches Home Meds: Home Meds Doxazosin [Cardura] 8 mg PO BEDTIME 09/29/19 [History] Metoprolol Succinate 200 mg PO DAILY 09/29/19 [History] Torsemide 20 mg PO BID 09/29/19 [History] atorvaSTATin [Lipitor] 80 mg PO BEDTIME 09/29/19 [History] Insulin Aspart [NovoLOG] 0 unit SUBCUT .UP TO 60 UN DAILY 09/30/19 [History] Metoclopramide [Reglan] 5 mg PO TIDAC #90 tablet 10/10/19 [Rx] Aspirin [Adult Low Dose Aspirin EC] 81 mg PO DAILY 12/07/19 [History] Enalapril Maleate 20 mg PO DAILY 12/07/19 [History] Insulin Glarg,Human.Rec.Analog [Lantus] 38 mg SUBCUT BEDTIME 12/07/19 [History] Iron Ag,Ps/C/Fa6/B12/Zn/SA/Sto [Niferex Tablet] 150 mg PO BID 12/07/19 [History] Sertraline [Zoloft] 50 mg PO DAILY 12/07/19 [History] Sucralfate 1 gm PO QIDACANDBED 12/07/19 [History] amLODIPine Besylate [Amlodipine Besylate] 10 mg PO DAILY 12/07/19 [History] hydroCHLOROthiazide [Hydrochlorothiazide] 25 mg PO DAILY 12/07/19 [History] Pantoprazole Sodium [Protonix] 40 mg PO DAILY 30 Days #30 suspdr.pkt 05/31/20 [Rx] hydrALAZINE [Apresoline] 50 mg PO Q8H #60 tablet 07/14/20 [Rx] oxyCODONE HCl/Acetaminophen [Percocet 5-325 mg Tablet] 1 each PO Q6H PRN 3 Days #12 tablet 07/17/20 [Rx] diphenhydrAMINE [Benadryl] 50 mg PO BEDTIME #5 cap 07/20/20 [Rx] haloperidoL [Haldol] 2 mg PO BEDTIME #5 tablet 07/20/20 [Rx] Past Medical History - Past Health History Medical/Surgical History: Denies Medical/Surgical History HEENT History: Reports: Impaired Vision Other HEENT History: blind right eye Cardiovascular History: Reports: Hypertension Respiratory History: Reports: None Gastrointestinal History: Reports: Gastritis, GERD, Hiatal Hernia, Other (See Below) Other Gastrointestinal History: h/o gastric ulcers, h/o hiatal hernia; gastroparesis Genitourinary History: Reports: Chronic Renal Insuffiency, Diabetic Nephropathy Musculoskeletal History: Reports: Amputation Other Musculoskeletal History: RLE Neurological History: Reports: Neuropathy, Peripheral Other Neuro History: stroke Psychiatric History: Reports: Anxiety Endocrine/Metabolic History: Reports: Diabetes, Type I Other Endocrine/Metabolic History: brittle diabetic. History of hyperkalemia and DKA Insulin Pump Model and Casino Runner: None Hematologic History: Reports: Anemia Immunologic History: Reports: None Oncologic (Cancer) History: Reports: None Dermatologic History: Reports: Other (See Below) Other Dermatologic History: diabetic foot ulcers - Infectious Disease History Infectious Disease History: Reports: Chicken Pox Other Infectious Disease History: 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 - Past Surgical History Head Surgeries/Procedures: Reports: None HEENT Surgical History: Reports: None Respiratory Surgical History: Reports: None GI Surgical History: Reports: None Male Surgical History: Reports: None Endocrine Surgical History: Reports: None Oncologic Surgical History: Reports: None Dermatological Surgical History: Reports: None Social & Family History - Family History Family Medical History: No Pertinent Family History Cardiac: Reports: High Cholesterol, Hypertension OBGYN: Reports: Neurological: Reports: None Psychiatric: Reports: Anxiety - Caffeine Use Caffeine Use: Reports: None Other Caffeine Use: daily Caffeine Use Comment: patient is uncooperated - Living Situation & Occupation Living situation: Reports: Single Occupation: Employed (Currently unemployed.) ED ROS GENERAL - Review of Systems Review Of Systems: See Below (see dictation) ED EXAM, GI/ABD - Physical Exam Exam: See Below (see dictation) Course - Vital Signs Last Recorded V/S: Last Vital Signs Temp 96.8 F L 08/04/20 04:08 Pulse 119 H 08/04/20 04:08 Resp 18 08/04/20 04:08 BP 201/123 H 08/04/20 04:08 Pulse Ox 98 08/04/20 04:08 - Orders/Labs/Meds Orders: Active Orders 24 hr Category Date Time Status Cardiac Monitoring [RC] . DIRECTED Care 08/04/20 01:07 Active DRUG SCREEN, URINE [URCHEM] Stat Lab 08/04/20 01:20 Ordered UA W/MICROSCOPIC [URIN] Stat Lab 08/04/20 04:06 Results Sodium Chloride 0.9% [Normal Saline] Med 08/04/20 01:05 Active 10 ml IV ASDIRECTED PRN Sodium Chloride 0.9% [Saline Flush] Med 08/04/20 01:05 Active 10 ml FLUSH ASDIRECTED PRN Sodium Chloride 0.9% [Saline Flush] Med 08/04/20 01:05 Active 2.5 ml FLUSH ASDIRECTED PRN Peripheral IV Insertion Adult [OM.PC] Stat Oth 08/04/20 01:05 Ordered Medication Orders Sodium Chloride (Saline Flush) 10 ml FLUSH ASDIRECTED PRN PRN Reason: Keep Vein Open Sodium Chloride (Saline Flush) 2.5 ml FLUSH ASDIRECTED PRN PRN Reason: Keep Vein Open Sodium Chloride (Normal Saline) 10 ml IV ASDIRECTED PRN PRN Reason: IV Use Labs: Laboratory Tests 08/04/20 08/04/20 08/04/20 Range/Units 01:07 01:07 01:07 WBC 13.51 H (4.0-11.0) K/uL RBC 4.63 (4.50-5.90) M/uL Hgb 10.0 L (13.0-17.0) g/dL Hct 31.3 L (38.0-50.0) % MCV 67.6 L (80.0-98.0) fL MCH 21.6 L (27.0-32.0) pg MCHC 31.9 (31.0-37.0) g/dL RDW Std Deviation 45.3 (28.0-62.0) fl RDW Coeff of Dania 19 H (11.0-15.0) % Plt Count 591 H (150-400) K/uL MPV 10.70 (7.40-12.00) fL Neut % (Auto) 80.4 H (48.0-80.0) % Lymph % (Auto) 14.7 L (16.0-40.0) % [place] % (Auto) 4.5 (0.0-15.0) % Eos % (Auto) 0.3 (0.0-7.0) % Baso % (Auto) 0.1 (0.0-1.5) % Neut # (Auto) 10.9 H (1.4-5.7) K/uL Lymph # (Auto) 2.0 (0.6-2.4) K/uL [place] # (Auto) 0.6 (0.0-0.8) K/uL Eos # (Auto) 0.0 (0.0-0.7) K/uL Baso # (Auto) 0.0 (0.0-0.1) K/uL APTT 24.2 (18.6-31.3) SEC Lactate (0.20-2.00) mmol/L Sodium 142 (136-148) mmol/L Potassium 3.8 (3.5-5.1) mmol/L Chloride 106 (98-107) mmol/L Carbon Dioxide 21.9 (21.0-32.0) mmol/L BUN 38 H (7.0-18.0) mg/dL Creatinine 3.8 H (0.8-1.3) mg/dL Est Cr Clr Drug Dosing 25.61 mL/min Estimated GFR (MDRD) 18.3 ml/min Glucose 407 H (74-106) mg/dL POC Glucose (60-110) mg/dL Calcium 8.5 (8.5-10.1) mg/dL Phosphorus 3.7 (2.6-4.7) mg/dL Magnesium 1.7 L (1.8-2.4) mg/dL Ferritin (26-388) ng/mL Total Bilirubin 0.3 (0.2-1.0) mg/dL AST 26 (15-37) IU/L ALT 17 (14-63) IU/L Alkaline Phosphatase 96 (46-116) U/L Total Protein 6.8 (6.4-8.2) g/dL Albumin 2.1 L (3.4-5.0) g/dL Globulin 4.7 H (2.6-4.0) g/dL Albumin/Globulin Ratio 0.5 L (0.9-1.6) Lipase 30 L (73-393) U/L Urine Color Urine Appearance Urine pH (5.0-8.0) Ur Specific [place] (1.001-1.035) Urine Protein (NEGATIVE) mg/dL Urine Glucose (UA) (NEGATIVE) mg/dL Urine Ketones (NEGATIVE) mg/dL Urine Occult Blood (NEGATIVE) Urine Nitrite (NEGATIVE) Urine Bilirubin (NEGATIVE) Urine Urobilinogen (<2.0) EU/dL Ur Leukocyte Esterase (NEGATIVE) Ketones (NEG) SARS-CoV-2 RNA (BK) (NEGATIVE) Blood Type Antibody Screen 08/04/20 08/04/20 08/04/20 Range/Units 01:07 01:07 01:07 WBC (4.0-11.0) K/uL RBC (4.50-5.90) M/uL Hgb (13.0-17.0) g/dL Hct (38.0-50.0) % MCV (80.0-98.0) fL MCH (27.0-32.0) pg MCHC (31.0-37.0) g/dL RDW Std Deviation (28.0-62.0) fl RDW Coeff of Dania (11.0-15.0) % Plt Count (150-400) K/uL MPV (7.40-12.00) fL Neut % (Auto) (48.0-80.0) % Lymph % (Auto) (16.0-40.0) % [place] % (Auto) (0.0-15.0) % Eos % (Auto) (0.0-7.0) % Baso % (Auto) (0.0-1.5) % Neut # (Auto) (1.4-5.7) K/uL Lymph # (Auto) (0.6-2.4) K/uL [place] # (Auto) (0.0-0.8) K/uL Eos # (Auto) (0.0-0.7) K/uL Baso # (Auto) (0.0-0.1) K/uL APTT (18.6-31.3) SEC Lactate 2.2 H* (0.20-2.00) mmol/L Sodium (136-148) mmol/L Potassium (3.5-5.1) mmol/L Chloride (98-107) mmol/L Carbon Dioxide (21.0-32.0) mmol/L BUN (7.0-18.0) mg/dL Creatinine (0.8-1.3) mg/dL Est Cr Clr Drug Dosing mL/min Estimated GFR (MDRD) ml/min Glucose (74-106) mg/dL POC Glucose (60-110) mg/dL Calcium (8.5-10.1) mg/dL Phosphorus (2.6-4.7) mg/dL Magnesium (1.8-2.4) mg/dL Ferritin 1390 H (26-388) ng/mL Total Bilirubin (0.2-1.0) mg/dL AST (15-37) IU/L ALT (14-63) IU/L Alkaline Phosphatase (46-116) U/L Total Protein (6.4-8.2) g/dL Albumin (3.4-5.0) g/dL Globulin (2.6-4.0) g/dL Albumin/Globulin Ratio (0.9-1.6) Lipase (73-393) U/L Urine Color Urine Appearance Urine pH (5.0-8.0) Ur Specific [place] (1.001-1.035) Urine Protein (NEGATIVE) mg/dL Urine Glucose (UA) (NEGATIVE) mg/dL Urine Ketones (NEGATIVE) mg/dL Urine Occult Blood (NEGATIVE) Urine Nitrite (NEGATIVE) Urine Bilirubin (NEGATIVE) Urine Urobilinogen (<2.0) EU/dL Ur Leukocyte Esterase (NEGATIVE) Ketones SMALL H (NEG) SARS-CoV-2 RNA (BK) (NEGATIVE) Blood Type Antibody Screen 08/04/20 08/04/20 08/04/20 Range/Units 01:20 02:49 04:04 WBC (4.0-11.0) K/uL RBC (4.50-5.90) M/uL Hgb (13.0-17.0) g/dL Hct (38.0-50.0) % MCV (80.0-98.0) fL MCH (27.0-32.0) pg MCHC (31.0-37.0) g/dL RDW Std Deviation (28.0-62.0) fl RDW Coeff of Dania (11.0-15.0) % Plt Count (150-400) K/uL MPV (7.40-12.00) fL Neut % (Auto) (48.0-80.0) % Lymph % (Auto) (16.0-40.0) % [place] % (Auto) (0.0-15.0) % Eos % (Auto) (0.0-7.0) % Baso % (Auto) (0.0-1.5) % Neut # (Auto) (1.4-5.7) K/uL Lymph # (Auto) (0.6-2.4) K/uL [place] # (Auto) (0.0-0.8) K/uL Eos # (Auto) (0.0-0.7) K/uL Baso # (Auto) (0.0-0.1) K/uL APTT (18.6-31.3) SEC Lactate (0.20-2.00) mmol/L Sodium (136-148) mmol/L Potassium (3.5-5.1) mmol/L Chloride (98-107) mmol/L Carbon Dioxide (21.0-32.0) mmol/L BUN (7.0-18.0) mg/dL Creatinine (0.8-1.3) mg/dL Est Cr Clr Drug Dosing mL/min Estimated GFR (MDRD) ml/min Glucose (74-106) mg/dL POC Glucose 429 H (60-110) mg/dL Calcium (8.5-10.1) mg/dL Phosphorus (2.6-4.7) mg/dL Magnesium (1.8-2.4) mg/dL Ferritin (26-388) ng/mL Total Bilirubin (0.2-1.0) mg/dL AST (15-37) IU/L ALT (14-63) IU/L Alkaline Phosphatase (46-116) U/L Total Protein (6.4-8.2) g/dL Albumin (3.4-5.0) g/dL Globulin (2.6-4.0) g/dL Albumin/Globulin Ratio (0.9-1.6) Lipase (73-393) U/L Urine Color Urine Appearance Urine pH (5.0-8.0) Ur Specific [place] (1.001-1.035) Urine Protein (NEGATIVE) mg/dL Urine Glucose (UA) (NEGATIVE) mg/dL Urine Ketones (NEGATIVE) mg/dL Urine Occult Blood (NEGATIVE) Urine Nitrite (NEGATIVE) Urine Bilirubin (NEGATIVE) Urine Urobilinogen (<2.0) EU/dL Ur Leukocyte Esterase (NEGATIVE) Ketones (NEG) SARS-CoV-2 RNA (BK) POSITIVE H (NEGATIVE) Blood Type O POSITIVE Antibody Screen NEGATIVE 08/04/20 Range/Units 04:06 WBC (4.0-11.0) K/uL RBC (4.50-5.90) M/uL Hgb (13.0-17.0) g/dL Hct (38.0-50.0) % MCV (80.0-98.0) fL MCH (27.0-32.0) pg MCHC (31.0-37.0) g/dL RDW Std Deviation (28.0-62.0) fl RDW Coeff of Dania (11.0-15.0) % Plt Count (150-400) K/uL MPV (7.40-12.00) fL Neut % (Auto) (48.0-80.0) % Lymph % (Auto) (16.0-40.0) % [place] % (Auto) (0.0-15.0) % Eos % (Auto) (0.0-7.0) % Baso % (Auto) (0.0-1.5) % Neut # (Auto) (1.4-5.7) K/uL Lymph # (Auto) (0.6-2.4) K/uL [place] # (Auto) (0.0-0.8) K/uL Eos # (Auto) (0.0-0.7) K/uL Baso # (Auto) (0.0-0.1) K/uL APTT (18.6-31.3) SEC Lactate (0.20-2.00) mmol/L Sodium (136-148) mmol/L Potassium (3.5-5.1) mmol/L Chloride (98-107) mmol/L Carbon Dioxide (21.0-32.0) mmol/L BUN (7.0-18.0) mg/dL Creatinine (0.8-1.3) mg/dL Est Cr Clr Drug Dosing mL/min Estimated GFR (MDRD) ml/min Glucose (74-106) mg/dL POC Glucose (60-110) mg/dL Calcium (8.5-10.1) mg/dL Phosphorus (2.6-4.7) mg/dL Magnesium (1.8-2.4) mg/dL Ferritin (26-388) ng/mL Total Bilirubin (0.2-1.0) mg/dL AST (15-37) IU/L ALT (14-63) IU/L Alkaline Phosphatase (46-116) U/L Total Protein (6.4-8.2) g/dL Albumin (3.4-5.0) g/dL Globulin (2.6-4.0) g/dL Albumin/Globulin Ratio (0.9-1.6) Lipase (73-393) U/L Urine Color YELLOW Urine Appearance HAZY Urine pH 6.5 (5.0-8.0) Ur Specific [place] 1.020 (1.001-1.035) Urine Protein >=300 H (NEGATIVE) mg/dL Urine Glucose (UA) 500 H (NEGATIVE) mg/dL Urine Ketones 15 H (NEGATIVE) mg/dL Urine Occult Blood TRACE-INTACT H (NEGATIVE) Urine Nitrite NEGATIVE (NEGATIVE) Urine Bilirubin NEGATIVE (NEGATIVE) Urine Urobilinogen 0.2 (<2.0) EU/dL Ur Leukocyte Esterase NEGATIVE (NEGATIVE) Ketones (NEG) SARS-CoV-2 RNA (BK) (NEGATIVE) Blood Type Antibody Screen Meds: Medications Generic Name Dose Route Start Last Admin Trade Name Freq PRN Reason Stop Dose Admin Sodium Chloride 10 ml 08/04/20 01:05 Saline Flush FLUSH ASDIRECTED PRN Keep Vein Open Sodium Chloride 2.5 ml 08/04/20 01:05 Saline Flush FLUSH ASDIRECTED PRN Keep Vein Open Sodium Chloride 10 ml 08/04/20 01:05 Normal Saline IV ASDIRECTED PRN IV Use Discontinued Medications Generic Name Dose Route Start Last Admin Trade Name Freq PRN Reason Stop Dose Admin Famotidine 20 mg 08/04/20 01:15 08/04/20 01:19 Pepcid IVPUSH 08/04/20 01:16 20 mg ONETIME ONE Administration Haloperidol Lactate 3 mg 08/04/20 01:07 08/04/20 01:19 Haldol IM 08/04/20 01:08 3 mg ONETIME ONE Administration Lactated Ringer's 1,000 mls @ 999 mls/hr 08/04/20 01:05 08/04/20 01:16 Ringers, Lactated IV 08/04/20 02:05 999 mls/hr .BOLUS ONE Administration Pantoprazole Sodium 40 mg/ 20 mls @ 420 mls/hr 08/04/20 01:10 08/04/20 01:19 Sodium Chloride IVPUSH 08/04/20 01:12 420 mls/hr ONETIME ONE Administration Lactated Ringer's 1,000 mls @ 999 mls/hr 08/04/20 01:15 08/04/20 01:48 Ringers, Lactated IV 08/04/20 02:15 999 mls/hr .BOLUS ONE Administration Insulin Human Regular 5 unit 08/04/20 04:09 Novolin R IVPUSH 08/04/20 04:10 ONETIME ONE Protocol Labetalol HCl 10 mg 08/04/20 03:57 08/04/20 04:10 Normodyne IVPUSH 08/04/20 03:58 10 mg ONETIME ONE Administration Protocol Morphine Sulfate 4 mg 08/04/20 01:33 08/04/20 01:45 Morphine IVPUSH 08/04/20 01:34 4 mg ONETIME ONE Administration - Re-Assessments/Exams Free Text/Narrative Re-Assessment/Exam: 08/04/20 01:12 Ordered IV fluids, Protonix 40 mg IV, Haldol 3 mg IV. 08/04/20 03:58 Patient will require transfer to outside facility since we have no [facility] beds available. He will need GI strategic planning consultant services unavailable at this facility. Any emergency conditions have been stabilized to the ability of the ED prior to the transfer. Case was discussed with [facility], they are on diversion. Jose Casas accepted pt directly to the Covid unit under Anatoliy Harrell. MEDICAL DECISION MAKING: I reviewed the patients past medical records, lab and radiographic findings. I discussed the case with the patient. My differential di agnosis included: Upper GI bleed, gastritis, cyclic vomiting syndrome. Patient's creatinine today is 3.8, which is improved from his baseline of 4.6 on 07/23. His hemoglobin today is 10.0, which is improved from 9.7 on 07/23. His Chest x-ray did not demonstrate free air. His nausea/vomiting improved with haldol and protonix. He was givein IV protonix for his UGIB. His blood pressure remained high after 2 L IV fluids, he was then given 10 mg IV labetalol. His blood glucose after 2L IVF was 429, he was then given 5 units regular insulin IV, his anion gap was 14, with trace ketones. Departure - Departure Time of Disposition: 04:11 Disposition: DC/Tfer to Other 70 Condition: Fair Clinical Impression: Uncontrolled diabetes mellitus, Cyclical vomiting, Upper GI bleed, Chronic kidney disease (CKD), Hypertensive urgency, COVID-19, Dehydration, Hyperglycemia - Discharge Information *PRESCRIPTION DRUG MONITORING PROGRAM REVIEWED*: Not Applicable *COPY OF PRESCRIPTION DRUG MONITORING REPORT IN PATIENT IVELISSE: Not Applicable Referrals: PCP,None [Primary Care Provider] - Forms: ED Department Discharge Critical Care Note - Critical Care Note Total Time (mins): 40 Comments: CRITCAL CARE: The high probability of sudden, clinically significant deterioration in the patient's condition required the highest level of my preparedness to intervene urgently. The services I provided to this patient were to treat and/or prevent clinically significant deterioration. Services included the following: chart data review, reviewing nursing notes and/or old charts, documentation time, strategic planning consultant collaboration regarding findings and treatment options, medication orders and management, direct patient care, vital sign assessments and ordering, interpreting and reviewing diagnostic studies/lab tests. Aggregate critical care time includes only time during which I was engaged in work directly related to the patient's care, as described above, whether at the bedside or elsewhere in the Emergency Department. It did not include time spent performing other reported procedures or the services of residents, students, nurses or physician assistants. Frequent interventions and/or frequent repeat evaluations were required as well as counseling and coordination of care regarding prognosis, treatments, and discussions with patient, staff and consultants. Critical Care (excluding other procedures): 40 minutes Sepsis Event Note (ED) - Focused Exam Vital Signs: Vital Signs Temp Pulse Resp BP Pulse Ox 08/04/20 04:08 96.8 F L 119 H 18 201/123 H 98 08/04/20 03:57 104 H 16 182/112 H 99 08/04/20 03:28 100 14 197/113 H 97 08/04/20 03:00 106 H 16 191/117 H 97 08/04/20 02:18 104 H 18 180/108 H 99 08/04/20 01:49 104 H 14 200/112 H 95 08/04/20 01:32 121 H 20 182/119 H 98 08/04/20 01:05 96.4 F L 128 H 28 H 182/119 H 99 - My Orders Last 24 Hours: My Active Orders 08/04/20 01:05 Sodium Chloride 0.9% [Normal Saline] 10 ml IV ASDIRECTED PRN Sodium Chloride 0.9% [Saline Flush] 10 ml FLUSH ASDIRECTED PRN Sodium Chloride 0.9% [Saline Flush] 2.5 ml FLUSH ASDIRECTED PRN Peripheral IV Insertion Adult [OM.PC] Stat 08/04/20 01:07 Cardiac Monitoring [RC] . DIRECTED 08/04/20 01:20 DRUG SCREEN, URINE [URCHEM] Stat 08/04/20 04:06 UA W/MICROSCOPIC [URIN] Stat - Assessment/Plan Last 24 Hours: My Active Orders 08/04/20 01:05 Sodium Chloride 0.9% [Normal Saline] 10 ml IV ASDIRECTED PRN Sodium Chloride 0.9% [Saline Flush] 10 ml FLUSH ASDIRECTED PRN Sodium Chloride 0.9% [Saline Flush] 2.5 ml FLUSH ASDIRECTED PRN Peripheral IV Insertion Adult [OM.PC] Stat 08/04/20 01:07 Cardiac Monitoring [RC] . DIRECTED 08/04/20 01:20 DRUG SCREEN, URINE [URCHEM] Stat 08/04/20 04:06 UA W/MICROSCOPIC [URIN] Stat
[2020-08-04] MEDS ORDERED: Famotidine 20 MG/2 ML SDV IVPUSH ONE (01:15)
[2020-08-04] MEDS ORDERED: Morphine 4 MG/ML Syringe IVPUSH ONE ×2 (01:33→04:20)
--- NOTE | 2020-08-04 01:39 | CR ---
Indication: Hematemesis Technique: Chest 1 view Comparison: Chest x-ray 07/11/2020 Findings/Impression: Cardiovascular and mediastinum: Heart size and vasculature are normal in caliber and appearance. Lungs and pleural space: Lungs are clear. No sign of infiltrate or mass. No sign of pleural effusion. No pneumothorax. Bones and soft tissues: No acute findings. Dictated by Kj Meyer MD @ Aug 04 2020 1:36AM Signed by Dr. Kj Meyer @ Aug 04 2020 1:37AM
[2020-08-04 01:41] LABS: CARBON DIOXIDE,CO2 21.9 mmol/L (21.0-32.0); POTASSIUM,K 3.8 mmol/L (3.5-5.1)
[2020-08-04] MEDS ORDERED: Labetalol 100 MG/20 ML MDV IVPUSH ONE (03:57)
[2020-08-04] MEDS ORDERED: Insulin Regular, Human 100 Units/ML 10 ML Vial IVPUSH ONE (04:09)
[2020-08-04 05:09] VITALS: BP 142/93; PULSE 104
== END 2020-08-04 05:04 | disposition other institution (70) ==
LOC: MW.ED 01:00
DX: K92.2 Gastrointestinal hemorrhage, unspecified (principal); U07.1 COVID-19; E86.0 Dehydration; R11.15 Cyclical vomiting syndrome unrelated to migraine; E10.65 Type 1 diabetes mellitus with hyperglycemia; I16.0 Hypertensive urgency; I12.9 Hypertensive chronic kidney disease with stage 1 through stage 4 chronic kidney disease, or unspecified chronic kidney disease; E10.22 Type 1 diabetes mellitus with diabetic chronic kidney disease; N18.9 Chronic kidney disease, unspecified; K21.9 Gastro-esophageal reflux disease without esophagitis; E10.21 Type 1 diabetes mellitus with diabetic nephropathy; E10.42 Type 1 diabetes mellitus with diabetic polyneuropathy; F41.9 Anxiety disorder, unspecified; Z91.013 Allergy to seafood; Z91.041 Radiographic dye allergy status; Z88.0 Allergy status to penicillin; Z91.018 Allergy to other foods; Z88.8 Allergy status to other drugs, medicaments and biological substances; Z79.899 Other long term (current) drug therapy
CPT/HCPCS: 36415; 71045; 80053; 80305; 81001; 82009; 82728; 82962; 83605; 83690; 83735; 84100; 85025; 85730; 86850; 86900; 86901; 96372; 96374; 96375; 96376; 99291; C9113; J1630; J2270; J3490; J7120; U0002; 99284; J1815-GY

== ENCOUNTER 2020-10-29 18:38 | Emergency (ER) | payer MEDICARE, MEDICAID ==
[2020-10-29] MEDS ORDERED: diphenhydrAMINE 50 MG/ML SDV IVPUSH ONE (19:08)
[2020-10-29] MEDS ORDERED: Haloperidol Lactate 5 MG/ML SDV IM ONE (19:08)
[2020-10-29] MEDS ORDERED: diphenhydrAMINE 50 MG/ML SDV IM ONE (19:35)
[2020-10-29 20:32] LABS: CARBON DIOXIDE,CO2 21.2 mmol/L (21.0-32.0); POTASSIUM,K 4.6 mmol/L (3.5-5.1)
--- NOTE | 2020-10-29 21:43 | EDM.PDOC ---
ED HPI GENERAL MEDICAL PROBLEM - General Chief Complaint: Abdominal Pain Stated Complaint: ABDOMINAL PAIN Time Seen by Provider: 10/29/20 19:06 - History of Present Illness INITIAL COMMENTS - FREE TEXT/NARRATIVE: CHIEF COMPLAINT(S): Abdominal pain HISTORY OF PRESENT ILLNESS: This is a 35-year-old man and with a past medical history of uncontrolled diabetes, gastroparesis, prior history of GI bleed, CKD who comes to the emergency department with a chief complaint of abdominal pain. The patient states that prior to arrival he started to experience abdominal pain in the left upper quadrant. He states the pain is rated 10 out of 10 and burning. He denies any associated melena or hematochezia but states that he does have some nausea and has vomited multiple times. He denies any hematemesis, bilious emesis, he states that he has not yet tried any pain medications. He denies any aggravating or relieving symptoms. He denies any chest pain or shortness of breath. REVIEW OF SYSTEMS: Constitutional: Denies fever, chills. Eyes: Denies eye pain Ears, Nose, Mouth, & Throat: Denies earache Cardiovascular: Denies chest pain Respiratory: Denies shortness of breath Gastrointestinal: Positive for nausea, vomiting. Denies diarrhea, constipation, melena, hematochezia, hematemesis Genitourinary: Denies hematuria, dysuria Skin:Denies a rash MSK: Denies joint pain Neurological: Denies blurred vision Psychiatric: Denies depression PAST MEDICAL HISTORY: As per history of present illness and as reviewed below otherwise noncontributory. SURGICAL HISTORY: As per history of present illness and as reviewed below othe rwise noncontributory., numbness, tingling, weakness SOCIAL HISTORY: As per history of present illness and as reviewed below otherwise noncontributory. FAMILY HISTORY: As per history of present illness and as reviewed below otherwise noncontributory. EXAMINATION OF ORGAN SYSTEMS/BODY AREAS: Constitutional: Blood pressure was 156/93, heart rate 102, respiratory rate 18 with an oxygen saturation 98% on room air. Temperature 36.8 General: Young man who is lying on the stretcher who appears to be in no acute distress Psychiatric: Appears anxious but appropriate affect Eyes: No scleral icterus or conjunctival erythema conjunctiva is not pale. ENMT: Moist mucous membranes. No pharyngeal erythema no blood in the oropharynx. Cardiovascular: Regular, rate, and rhythm. No gallops, murmurs, or rubs. Bilateral upper extremity pulses symmetric and intact. No peripheral edema. No JVD. Respiratory: Lungs clear to auscultation bilaterally. No wheezes, rales, or rhonchi. Gastrointestinal: Soft, non-tender, non-distended. Abdomen is soft, tenderness to palpation in the left upper quadrant. No rebound or guarding. Nondistended. Genitourinary: No suprapubic tenderness Musculoskeletal: Normal range of motion. Skin: No lesions or abrasions. Neurological: Alert, GCS 15 MEDICAL DECISION MAKING AND COURSE IN THE ED WITH INTERPRETATION/REVIEW OF DIAGNOSTIC STUDIES: This is a 35-year-old man and with a past medical history of diabetes mellitus, gastroparesis and many ER visits for gastroparetic abdominal pain who comes to the emergency department with acute exacerbation of his ch ronic abdominal pain who has normal vital signs. At this time we will obtain screening labs including CBC, CMP. [id number] glucose was found to be elevated. Differential does include DKA. We will provide the patient with Haldol and Benadryl for nausea and pain relief. The patient stated that this does not work for him and he requests Dilaudid by name. I did discuss him at this time that I would like to do a trial with Haldol and Benadryl and we will reevaluate the pain. Laboratory: CBC reveals a microcytic anemia with a hemoglobin of 9.7 hematocrit of 30.9. This appears to be around the patient's baseline. CMP reveals elevated BUN at 39 and creatinine of 5.4 which is around the patient's baseline, hyperglycemia at 311 which appears to be around the patient's baseline and hypoalbuminemia at 2.8. Ketones are negative. Patient did not have any further episodes of vomiting while in the emergency department. The patient was able to tolerate p.o. water. At this time I did discuss with patient be stable for discharge. He was amenable to discharge and had no further questions. He is to return for any new or worsening symptoms. DISPOSITION: The patient was discharged home in stable condition. The patient will follow up with primary care physician CONDITION: fair PROCEDURES: None FINAL IMPRESSION(S)/DIAGNOSES: 1. Acute on chronic abdominal pain likely secondary to gastroparesis Matti South M.D. stomach Pain Score (Numeric/FACES): 8 - Related Data Allergies Allergy/AdvReac Type Severity Reaction Status Date / Time shrimp Allergy Severe Swelling Verified 10/30/20 01:24 iodine Allergy Unknown Anaphylactic Verified 10/30/20 01:24 Shock Penicillins Allergy Unknown Anaphylactic Verified 10/30/20 01:24 Shock shellfish derived Allergy Anaphylactic Verified 10/30/20 01:24 Shock gluten Allergy Severe Muscle Uncoded 10/30/20 01:24 Aches Home Meds: Home Meds Doxazosin [Cardura] 8 mg PO BEDTIME 09/29/19 [History] Metoprolol Succinate 200 mg PO DAILY 09/29/19 [History] Torsemide 20 mg PO BID 09/29/19 [History] atorvaSTATin [Lipitor] 80 mg PO BEDTIME 09/29/19 [History] Insulin Aspart [NovoLOG] 0 unit SUBCUT .UP TO 60 UN DAILY 09/30/19 [History] Metoclopramide [Reglan] 5 mg PO TIDAC #90 tablet 10/10/19 [Rx] Aspirin [Adult Low Dose Aspirin EC] 81 mg PO DAILY 12/07/19 [History] Enalapril Maleate 20 mg PO DAILY 12/07/19 [History] Insulin Glarg,Human.Rec.Analog [Lantus] 38 mg SUBCUT BEDTIME 12/07/19 [History] Iron Ag,Ps/C/Fa6/B12/Zn/SA/Sto [Niferex Tablet] 150 mg PO BID 12/07/19 [History] Sucralfate 1 gm PO QIDACANDBED 12/07/19 [History] amLODIPine Besylate [Amlodipine Besylate] 10 mg PO DAILY 12/07/19 [History] hydroCHLOROthiazide [Hydrochlorothiazide] 25 mg PO DAILY 12/07/19 [History] Pantoprazole Sodium [Protonix] 40 mg PO DAILY 30 Days #30 suspdr.pkt 05/31/20 [Rx] hydrALAZINE [Apresoline] 50 mg PO Q8H #60 tablet 07/14/20 [Rx] diphenhydrAMINE [Benadryl] 50 mg PO BEDTIME #5 cap 07/20/20 [Rx] Past Medical History - Past Health History Medical/Surgical History: Denies Medical/Surgical History HEENT History: Reports: Impaired Vision Other HEENT History: blind right eye Cardiovascular History: Reports: Hypertension Respiratory History: Reports: None Gastrointestinal History: Reports: Gastritis, GERD, Hiatal Hernia, Other (See Below) Other Gastrointestinal History: h/o gastric ulcers, h/o hiatal hernia; gastroparesis Genitourinary History: Reports: Chronic Renal Insuffiency, Diabetic Nephropathy Musculoskeletal History: Reports: Amputation Other Musculoskeletal History: RLE Neurological History: Reports: Neuropathy, Peripheral Other Neuro History: stroke Psychiatric History: Reports: Anxiety Endocrine/Metabolic History: Reports: Diabetes, Type I Other Endocrine/Metabolic History: brittle diabetic. History of hyperkalemia and DKA Insulin Pump Model and Multifold Operator: None Hematologic History: Reports: Anemia Immunologic History: Reports: None Oncologic (Cancer) History: Reports: None Dermatologic History: Reports: Other (See Below) Other Dermatologic History: diabetic foot ulcers - Infectious Disease History Infectious Disease History: Reports: Chicken Pox Other Infectious Disease History: 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 - Past Surgical History Head Surgeries/Procedures: Reports: None HEENT Surgical History: Reports: None Cardiovascular Surgical History: Reports: None Respiratory Surgical History: Reports: None GI Surgical History: Reports: None Male Surgical History: Reports: None Endocrine Surgical History: Reports: None Neurological Surgical History: Reports: None Musculoskeletal Surgical History: Reports: Amputation Other Musculoskeletal Surgeries/Procedures:: right BKA Oncologic Surgical History: Reports: None Dermatological Surgical History: Reports: None Social & Family History - Family History Family Medical History: No Pertinent Family History Cardiac: Reports: High Cholesterol, Hypertension OBGYN: Reports: Neurological: Reports: None Psychiatric: Reports: Anxiety - Caffeine Use Caffeine Use: Reports: None Other Caffeine Use: daily Caffeine Use Comment: patient is uncooperated - Recreational Drug Use Recreational Drug Use: No - Living Situation & Occupation Living situation: Reports: Single Occupation: Employed (Currently unemployed.) ED ROS GENERAL - Review of Systems Review Of Systems: See Below ED EXAM, GENERAL - Physical Exam Exam: See Below Course - Vital Signs Last Recorded V/S: Last Vital Signs Temp 36.7 C 10/29/20 21:55 Pulse 82 10/29/20 21:55 Resp 18 10/29/20 21:55 BP 148/78 H 10/29/20 21:55 Pulse Ox 96 10/29/20 21:55 - Orders/Labs/Meds Labs: Laboratory Tests 10/29/20 10/29/20 10/29/20 Range/Units 20:00 20:00 20:00 WBC 8.61 (4.0-11.0) K/uL RBC 4.49 L (4.50-5.90) M/uL Hgb 9.7 L (13.0-17.0) g/dL Hct 30.9 L (38.0-50.0) % MCV 68.8 L (80.0-98.0) fL MCH 21.6 L (27.0-32.0) pg MCHC 31.4 (31.0-37.0) g/dL RDW Std Deviation 39.1 (28.0-62.0) fl RDW Coeff of Dania 16 H (11.0-15.0) % Plt Count 288 (150-400) K/uL MPV 10.30 (7.40-12.00) fL Neut % (Auto) 76.1 (48.0-80.0) % Lymph % (Auto) 16.7 (16.0-40.0) % [place] % (Auto) 3.8 (0.0-15.0) % Eos % (Auto) 2.7 (0.0-7.0) % Baso % (Auto) 0.7 (0.0-1.5) % Neut # (Auto) 6.6 H (1.4-5.7) K/uL Lymph # (Auto) 1.4 (0.6-2.4) K/uL [place] # (Auto) 0.3 (0.0-0.8) K/uL Eos # (Auto) 0.2 (0.0-0.7) K/uL Baso # (Auto) 0.1 (0.0-0.1) K/uL Nucleated RBC % 0.0 /100WBC Nucleated RBCs # 0 K/uL Sodium 141 (136-148) mmol/L Potassium 4.6 (3.5-5.1) mmol/L Chloride 107 (98-107) mmol/L Carbon Dioxide 21.2 (21.0-32.0) mmol/L BUN 39 H (7.0-18.0) mg/dL Creatinine 5.4 H (0.8-1.3) mg/dL Est Cr Clr Drug Dosing 18.65 mL/min Estimated GFR (MDRD) 14.8 ml/min Glucose 311 H (74-106) mg/dL Calcium 8.3 L (8.5-10.1) mg/dL Magnesium 2.1 (1.8-2.4) mg/dL Total Bilirubin 0.2 (0.2-1.0) mg/dL AST 25 (15-37) IU/L ALT 32 (14-63) IU/L Alkaline Phosphatase 105 (46-116) U/L Total Protein 6.7 (6.4-8.2) g/dL Albumin 2.8 L (3.4-5.0) g/dL Globulin 3.9 (2.6-4.0) g/dL Albumin/Globulin Ratio 0.7 L (0.9-1.6) Ketones NEGATIVE (NEG) Meds: Medications Discontinued Medications Generic Name Dose Route Start Last Admin Trade Name Freq PRN Reason Stop Dose Admin Diphenhydramine HCl 50 mg 10/29/20 19:08 10/29/20 19:34 Benadryl IVPUSH 10/29/20 19:09 Not Given ONETIME ONE Diphenhydramine HCl 50 mg 10/29/20 19:35 10/29/20 19:36 Benadryl IM 10/29/20 19:36 50 mg ONETIME ONE Administration Haloperidol Lactate 5 mg 10/29/20 19:08 10/29/20 19:35 Haldol IM 10/29/20 19:09 5 mg ONETIME ONE Administration Morphine Sulfate 4 mg 10/30/20 01:44 Morphine IVPUSH 10/30/20 01:45 ONETIME ONE Departure - Departure Time of Disposition: 21:42 Disposition: Home, Self-Care 01 Condition: Fair Clinical Impression: Chronic abdominal pain - Discharge Information *PRESCRIPTION DRUG MONITORING PROGRAM REVIEWED*: No *COPY OF PRESCRIPTION DRUG MONITORING REPORT IN PATIENT IVELISSE: No Instructions: Abdominal Pain, Adult, [id number], Chronic Pain, Adult Referrals: Fitz Infante MD [Primary Care Provider] - Forms: ED Department Discharge Additional Instructions: Awaiting an emergent basis. We did treat you symptomatically and your symptoms did improve. You were able to tolerate fluid. At this time I do recommend follow-up with your primary care physician. You are to return to the emergency department for any new or worsening symptoms. [facility] - [facility] [address] [place] [address] [facility] [address] [place] [address] The patient is informed of any results of their evaluation and diagnostic workup and all questions are answered. They are given discharge instructions and return precautions. The patient is stable for discharge. The patient states they understand and agree with the plan and that they will return if their symptoms get worse or if they have any new concerns. The following information is given to patients seen in the emergency department who are being discharged to home. This information is to outline your options for follow-up care. We provide all patients seen in our emergency department with a follow-up referral. The need for follow-up, as well as the timing and circumstances, are variable depending upon the specifics of your emergency department visit. If you don't have a primary care physician on staff, we will provide you with a referral. We always advise you to contact your personal physician following an emergency department visit to inform them of the circumstance of the visit and for follow-up with them and/or the need for any referrals to a consulting specialist. The emergency department will also refer you to a specialist when appropriate. This referral assures that you have the opportunity for follow-up care with a specialist. All of these measure are taken in an effort to provide you with optimal care, which includes your follow-up. Under all circumstances we always encourage you to contact your private physician who remains a resource for coordinating your care. When calling for follow-up care, please make the office aware that this follow-up is from your recent emergency room visit. If for any reason you are refused follow-up, please contact the [facility] Emergency Department at and asked to speak to the emergency department charge nurse. Sepsis Event Note (ED) - Evaluation Sepsis Screening Result: No Definite Risk - Focused Exam Vital Signs: Vital Signs Temp Pulse Resp BP Pulse Ox 10/29/20 21:55 36.7 C 82 18 148/78 H 96 10/29/20 20:32 88 141/92 H 100 10/29/20 19:12 36.8 C 102 H 18 156/93 H 98
[2020-10-29 22:07] VITALS: BP 148/78; PULSE 82
[2020-10-30] MEDS ORDERED: Morphine 4 MG/ML Syringe IVPUSH ONE (01:44)
== END 2020-10-29 21:55 | disposition home or self-care (01) ==
LOC: MW.ED 18:38
DX: R10.12 Left upper quadrant pain (principal); G89.29 Other chronic pain; K31.84 Gastroparesis; K21.9 Gastro-esophageal reflux disease without esophagitis; E10.43 Type 1 diabetes mellitus with diabetic autonomic (poly)neuropathy; E10.21 Type 1 diabetes mellitus with diabetic nephropathy; I12.9 Hypertensive chronic kidney disease with stage 1 through stage 4 chronic kidney disease, or unspecified chronic kidney disease; N18.9 Chronic kidney disease, unspecified; Z91.013 Allergy to seafood; Z91.048 Other nonmedicinal substance allergy status; Z88.0 Allergy status to penicillin; Z79.899 Other long term (current) drug therapy; Z79.82 Long term (current) use of aspirin; Z79.4 Long term (current) use of insulin
CPT/HCPCS: 36415; 80053; 82009; 83735; 85025; 96372; 99284; J1200; J1630; 99283

== ENCOUNTER 2020-10-30 01:08 | Inpatient (IN) | payer MEDICARE, MEDICAID ==
[2020-10-30] MEDS ORDERED: Famotidine 20 MG/2 ML SDV IVPUSH ONE (01:14)
[2020-10-30] MEDS ORDERED: Pantoprazole 80 MG in Sodium Chloride 0.9% 20 ML IVPUSH ONE (01:24)
--- NOTE | 2020-10-30 01:36 | EDM.PDOC ---
ED HPI GENERAL MEDICAL PROBLEM - General Chief Complaint: Gastrointestinal Problem Stated Complaint: VOMITING Time Seen by Provider: 10/30/20 01:13 - History of Present Illness INITIAL COMMENTS - FREE TEXT/NARRATIVE: CHIEF COMPLAINT(S): vomiting blood HISTORY OF PRESENT ILLNESS: This is a 35-year-old man and with a past medical history of uncontrolled diabetes, gastroparesis, prior history of GI bleed, CKD who comes to the emergency department with a chief complaint of vomiting blood. The patient states that since being discharged he has had multiple episodes of vomiting dark vomit which he describes as blood. He states that he has continued pain in his left upper quadrant. He denies any melena or hematochezia. He denies any pasquale hematemesis or hemoptysis. He denies any chest pain or shortness of breath. He states that he did not try any medications at home but was able to tolerate his home medications. He states the pain is rated 10 out of 10 and burning. he states that he has not yet tried any pain medications. He denies any aggravating or relieving symptoms. He denies any chest pain or shortness of breath. REVIEW OF SYSTEMS: Constitutional: Denies fever, chills. Eyes: Denies eye pain Ears, Nose, Mouth, & Throat: Denies earache Cardiovascular: Denies chest pain Respiratory: Denies shortness of breath Gastrointestinal: Positive for left upper quadrant pain, nausea, vomiting, coffee-ground emesis. Denies diarrhea, melena, hematochezia Genitourinary: Denies hematuria, dysuria Skin:Denies a rash MSK: Denies joint pain Neurological: Denies blurred vision Psychiatric: Denies depression PAST MEDICAL HISTORY: As per history of present illness and as reviewed below otherwise noncontributory. SURGICAL HISTORY: As per history of present illness and as reviewed below otherwise noncontributory., numbness, tingling, weakness SOCIAL HISTORY: As per history of present illness and as reviewed below otherwise noncontributory. FAMILY HISTORY: As per history of present illness and as reviewed below otherwise noncontributory. EXAMINATION OF ORGAN SYSTEMS/BODY AREAS: Constitutional: Blood pressure was 245/129, heart rate 99, respiratory rate 18 with an oxygen saturation 97% on room air. Temperature 35.8 General: Young man who is lying on the stretcher who appears to be in no acute distress Psychiatric: Appropriate mood and affect Eyes: No scleral icterus or conjunctival erythema conjunctiva is not pale. ENMT: Moist mucous membranes. No pharyngeal erythema. No blood in the oropharynx. Cardiovascular: Regular, rate, and rhythm. No gallops, murmurs, or rubs. Bilateral upper extremity pulses symmetric and intact. No peripheral edema. No JVD. Respiratory: Lungs clear to auscultation bilaterally. No wheezes, rales, or rhonchi. Gastrointestinal: Abdomen is soft, tenderness to palpation in the left upper quadrant. No rebound or guarding. Nondistended. Genitourinary: No suprapubic tenderness Musculoskeletal: Normal range of motion. Skin: No lesions or abrasions. No cyanosis and skin does not appear to be pale. Neurological: Alert, GCS 15 MEDICAL DECISION MAKING AND COURSE IN THE ED WITH INTERPRETATION/REVIEW OF DIAGNOSTIC STUDIES: This is a 35-year-old man and with a past medical history of diabetes mellitus, gastroparesis and many ER visits for gastroparetic abdominal pain who comes to the emergency department with reported coffee-ground emesis who has hypertension and otherwise is stable. Patient did have one episode of emesis while in the room it does appear to be dark in color but does not appear to be coffee-ground. This vomitus was guaiac positive., Hematocrit Given that he was just here we will repeat the patient's hemoglobin, coags, lactic acid, serum alcohol and obtain a type and screen. We will swab the patient for Covid and obtain a CT abdomen pelvis without contrast given his renal function. We will treat the patient's pain first before treating the patient's hypertension as this can be contributing. [id number] glucose was found to be elevated as it was last time. We will provide the patient with famotidine, pantoprazole and 4 mg of IV morphine. I will provide the patient with Zofran by mouth as the already given Haldol and Benadryl. Patient had continued abdominal pain therefore I provided the patient with 1 mg of IV Dilaudid. I did review the patient's chart and he has been admitted for this in the past requiring 1 unit of blood transfusion. He did have a endoscopy in 2019 which did reveal esophagitis and gastritis. Laboratory: Hemoglobin is 9.9, hematocrit of 31.6 which is up from prior at 9.7. Coags are normal. Lactic acid is 1.9. Serum alcohol is negative. The patient is O+. Patient is also Covid positive. The radiological images were viewed by myself along with reading the report from the radiologist. CT abdomen pelvis does not reveal any dilated bowel or localized inflammation. There is nonspecific ST and drink surrounding the kidneys. No hydronephrosis or ureteral stone seen. Repeat [id number] glucose was elevated therefore I provided the patient with 7 units of subcu insulin. He was not in DKA from prior labs. We will provide the patient with 1 L of normal saline. Given that the patient's blood pressure is still elevated we will provide the patient with 20 mg of IV labetalol. The patient's blood pressure continued to remain elevated therefore I provide the patient with 10 mg of IV hydralazine. On reevaluation, the patient's blood pressure had not decreased at all therefore we will provide the patient with 20 mg of IV hydralazine. Repeat glucose was still in the 400s so therefore I provided the patient with an additional 5u of insulin. Uncertain at this time why his glucose is rising given IV fluid hydration and insulin administration and no use of any medications with dextrose. The patients blood pressure continued to remain elevated therefore I started a nicardipine drip. I contacted Dr. Means for admission and she accepted the admission. DISPOSITION: The patient was admitted to the hospital in stable condition CONDITION: Serious PROCEDURES: None FINAL IMPRESSION(S)/DIAGNOSES: 1. Acute coffee ground emesis likely secondary to gastritis vs esophagitis vs upper GI bleed 2. Uncontrolled diabetes mellitus with hyperglycemia 3. Hypertensive urgency Abdomen Pain Score (Numeric/FACES): 8 - Related Data Allergies Allergy/AdvReac Type Severity Reaction Status Date / Time shrimp Allergy Severe Swelling Verified 10/30/20 01:24 iodine Allergy Unknown Anaphylactic Verified 10/30/20 01:24 Shock Penicillins Allergy Unknown Anaphylactic Verified 10/30/20 01:24 Shock shellfish derived Allergy Anaphylactic Verified 10/30/20 01:24 Shock gluten Allergy Severe Muscle Uncoded 10/30/20 01:24 Aches Home Meds: Home Meds Doxazosin [Cardura] 8 mg PO BEDTIME 09/29/19 [History] Metoprolol Succinate 200 mg PO DAILY 09/29/19 [History] Torsemide 20 mg PO BID 09/29/19 [History] atorvaSTATin [Lipitor] 80 mg PO BEDTIME 09/29/19 [History] Insulin Aspart [NovoLOG] 0 unit SUBCUT .UP TO 60 UN DAILY 09/30/19 [History] Metoclopramide [Reglan] 5 mg PO TIDAC #90 tablet 10/10/19 [Rx] Aspirin [Adult Low Dose Aspirin EC] 81 mg PO DAILY 12/07/19 [History] Enalapril Maleate 20 mg PO DAILY 12/07/19 [History] Insulin Glarg,Human.Rec.Analog [Lantus] 38 mg SUBCUT BEDTIME 12/07/19 [History] Iron Ag,Ps/C/Fa6/B12/Zn/SA/Sto [Niferex Tablet] 150 mg PO BID 12/07/19 [History] Sucralfate 1 gm PO QIDACANDBED 12/07/19 [History] amLODIPine Besylate [Amlodipine Besylate] 10 mg PO DAILY 12/07/19 [History] hydroCHLOROthiazide [Hydrochlorothiazide] 25 mg PO DAILY 12/07/19 [History] Pantoprazole Sodium [Protonix] 40 mg PO DAILY 30 Days #30 suspdr.pkt 05/31/20 [Rx] hydrALAZINE [Apresoline] 50 mg PO Q8H #60 tablet 07/14/20 [Rx] diphenhydrAMINE [Benadryl] 50 mg PO BEDTIME #5 cap 07/20/20 [Rx] Past Medical History - Past Health History Medical/Surgical History: Denies Medical/Surgical History HEENT History: Reports: Impaired Vision Other HEENT History: blind right eye Cardiovascular History: Reports: Hypertension Respiratory History: Reports: None Gastrointestinal History: Reports: Gastritis, GERD, Hiatal Hernia, Other (See Below) Other Gastrointestinal History: h/o gastric ulcers, h/o hiatal hernia; gastroparesis Genitourinary History: Reports: Chronic Renal Insuffiency, Diabetic Nephropathy Musculoskeletal History: Reports: Amputation Other Musculoskeletal History: RLE Neurological History: Reports: Neuropathy, Peripheral Other Neuro History: stroke Psychiatric History: Reports: Anxiety Endocrine/Metabolic History: Reports: Diabetes, Type I Other Endocrine/Metabolic History: brittle diabetic. History of hyperkalemia and DKA Insulin Pump Model and Pipe Jeeper: None Hematologic History: Reports: Anemia Immunologic History: Reports: None Oncologic (Cancer) History: Reports: None Dermatologic History: Reports: Other (See Below) Other Dermatologic History: diabetic foot ulcers - Infectious Disease History Infectious Disease History: Reports: Chicken Pox Other Infectious Disease History: 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 - Past Surgical History Head Surgeries/Procedures: Reports: None HEENT Surgical History: Reports: None Cardiovascular Surgical History: Reports: None Respiratory Surgical History: Reports: None GI Surgical History: Reports: None Male Surgical History: Reports: None Endocrine Surgical History: Reports: None Neurological Surgical History: Reports: None Musculoskeletal Surgical History: Reports: Amputation Other Musculoskeletal Surgeries/Procedures:: right BKA Oncologic Surgical History: Reports: None Dermatological Surgical History: Reports: None Social & Family History - Family History Family Medical History: No Pertinent Family History Cardiac: Reports: High Cholesterol, Hypertension OBGYN: Reports: Neurological: Reports: None Psychiatric: Reports: Anxiety - Caffeine Use Caffeine Use: Reports: None Other Caffeine Use: daily Caffeine Use Comment: patient is uncooperated - Living Situation & Occupation Living situation: Reports: Single Occupation: Employed (Currently unemployed.) ED ROS GENERAL - Review of Systems Review Of Systems: See Below ED EXAM, GI/ABD - Physical Exam Exam: See Below Course - Vital Signs Last Recorded V/S: Last Vital Signs Temp 36.2 C 10/30/20 05:50 Pulse 106 H 10/30/20 05:50 Resp 18 10/30/20 05:50 BP 206/117 H 10/30/20 05:50 Pulse Ox 99 10/30/20 05:50 - Orders/Labs/Meds Orders: Active Orders 24 hr Category Date Time Status Admission Status [Patient Status] [ADT] Stat ADT 10/30/20 05:22 Active Blood Glucose Check, Bedside [RC] ONETIME Care 10/30/20 01:18 Active Cardiac Monitoring [RC] . DIRECTED Care 10/30/20 01:36 Active EKG 12 Lead [EKG Documentation Completion] [RC] STAT Care 10/30/20 02:29 Active Pulse Oximetry [RC] ASDIRECTED Care 10/30/20 01:36 Active Dextrose 50% in Water Med 10/30/20 04:00 Active 50 ml IV ASDIRECTED PRN Dextrose 50% in Water Med 10/30/20 06:04 Ordered 50 ml IV ASDIRECTED PRN Glucagon,Human Recombinant [GlucaGen] Med 10/30/20 04:00 Active 1 mg IM ASDIRECTED PRN Glucagon,Human Recombinant [GlucaGen] Med 10/30/20 06:04 Ordered 1 mg IM ASDIRECTED PRN Sodium Chloride 0.9% [Normal Saline] 1,000 ml Med 10/30/20 02:30 Active IV ASDIRECTED niCARdipine/Normal Saline [Cardenein NS 40 MG/200 ML] Med 10/30/20 05:30 Active 40 mg in 200 ml IV TITRATE Medication Orders Dextrose/Water (Dextrose 50% In Water) 50 ml IV ASDIRECTED PRN PRN Reason: Hypoglycemia Dextrose/Water (Dextrose 50% In Water) 50 ml IV ASDIRECTED PRN PRN Reason: Hypoglycemia Glucagon (Glucagen) 1 mg IM ASDIRECTED PRN PRN Reason: Hypoglycemia Glucagon (Glucagen) 1 mg IM ASDIRECTED PRN PRN Reason: Hypoglycemia Sodium Chloride (Normal Saline) 1,000 mls @ 999 mls/hr IV ASDIRECTED MICHAEL Last Admin: 10/30/20 02:58 Dose: 999 mls/hr Documented by: ANGELA Nicardipine HCl (Cardenein Ns 40 Mg/200 Ml) 40 mg in 200 mls @ 25 mls/hr IV TITRATE MICHAEL; Protocol Last Admin: 10/30/20 05:48 Dose: 5 mg/hr, 25 mls/hr Documented by: ANGELA Labs: Laboratory Tests 10/30/20 10/30/20 10/30/20 Range/Units 01:14 01:14 01:14 Hgb (13.0-17.0) g/dL Hct (38.0-50.0) % INR 1.02 Lactate 1.9 (0.20-2.00) mmol/L Ethyl Alcohol < 3.0 mg/dL SARS-CoV-2 RNA (BK) (NEGATIVE) Blood Type Antibody Screen 10/30/20 10/30/20 10/30/20 Range/Units 01:14 01:38 01:50 Hgb 9.9 L (13.0-17.0) g/dL Hct 31.6 L (38.0-50.0) % INR Lactate (0.20-2.00) mmol/L Ethyl Alcohol mg/dL SARS-CoV-2 RNA (BK) POSITIVE H (NEGATIVE) Blood Type O POSITIVE Antibody Screen NEGATIVE Meds: Medications Generic Name Dose Route Start Last Admin Trade Name Freq PRN Reason Stop Dose Admin Dextrose/Water 50 ml 10/30/20 04:00 Dextrose 50% In Water IV ASDIRECTED PRN Hypoglycemia Dextrose/Water 50 ml 10/30/20 06:04 Dextrose 50% In Water IV ASDIRECTED PRN Hypoglycemia Glucagon 1 mg 10/30/20 04:00 Glucagen IM ASDIRECTED PRN Hypoglycemia Glucagon 1 mg 10/30/20 06:04 Glucagen IM ASDIRECTED PRN Hypoglycemia Sodium Chloride 1,000 mls @ 999 mls/hr 10/30/20 02:30 10/30/20 02:58 Normal Saline IV 999 mls/hr ASDIRECTED MICHAEL Administration Nicardipine HCl 40 mg in 200 mls @ 25 mls/hr 10/30/20 05:30 10/30/20 05:48 Cardenein Ns 40 Mg/200 Ml IV 5 mg/hr TITRATE MICHAEL 25 mls/hr Administration Protocol 5 MG/HR Discontinued Medications Generic Name Dose Route Start Last Admin Trade Name Lynn PRN Reason Stop Dose Admin Diphenhydramine HCl 25 mg 10/30/20 05:08 10/30/20 05:14 Benadryl IVPUSH 10/30/20 05:09 25 mg ONETIME ONE Administration Famotidine 40 mg 10/30/20 01:14 10/30/20 01:19 Pepcid IVPUSH 10/30/20 01:15 40 mg ONETIME ONE Administration Haloperidol Lactate 2.5 mg 10/30/20 05:08 10/30/20 05:48 Haldol IM 10/30/20 05:09 Not Given ONETIME ONE Hydralazine HCl 10 mg 10/30/20 04:03 10/30/20 04:10 Apresoline IVPUSH 10/30/20 04:04 10 mg ONETIME ONE Administration Hydralazine HCl Confirm 10/30/20 04:06 10/30/20 04:10 Apresoline Administered 10/30/20 04:07 Not Given Dose 20 mg .ROUTE .STK-MED ONE Hydralazine HCl 20 mg 10/30/20 04:47 10/30/20 04:52 Apresoline IVPUSH 10/30/20 04:48 20 mg ONETIME ONE Administration Hydromorphone HCl 1 mg 10/30/20 03:22 10/30/20 03:28 Dilaudid IVPUSH 10/30/20 03:23 1 mg ONETIME ONE Administration Pantoprazole Sodium 80 mg/ 20 mls @ 420 mls/hr 10/30/20 01:24 10/30/20 01:36 Sodium Chloride IVPUSH 10/30/20 01:26 420 mls/hr ONETIME ONE Administration Nicardipine HCl Confirm 10/30/20 05:32 10/30/20 05:48 Cardene In Ns 20 Mg/200 Ml Administered 10/30/20 05:33 Not Given Dose 20 mg in 200 mls @ as directed .ROUTE .STK-MED ONE Insulin Human Regular 7 unit 10/30/20 04:00 10/30/20 04:12 Novolin R SUBCUT 10/30/20 04:01 7 unit ONETIME ONE Administration Protocol Insulin Human Regular 5 unit 10/30/20 06:04 Novolin R SUBCUT 10/30/20 06:05 ONETIME ONE Protocol Labetalol HCl 20 mg 10/30/20 02:30 10/30/20 03:00 Normodyne IVPUSH 10/30/20 02:31 20 mg ONETIME ONE Administration Protocol Morphine Sulfate 4 mg 10/30/20 01:45 10/30/20 01:49 Morphine IVPUSH 10/30/20 01:46 4 mg ONETIME ONE Administration Ondansetron HCl 4 mg 10/30/20 02:28 10/30/20 03:00 Zofran IVPUSH 10/30/20 02:29 4 mg ONETIME ONE Administration Departure - Departure Time of Disposition: 05:22 Disposition: Admitted As Inpatient 67 Condition: Serious Clinical Impression: Upper gastrointestinal bleed, Hypertensive urgency, Hyperglycemia - Discharge Information Referrals: PCP,None [Primary Care Provider] - Forms: ED Department Discharge Sepsis Event Note (ED) - Evaluation Sepsis Screening Result: No Definite Risk - Focused Exam Vital Signs: Vital Signs Temp Pulse Resp BP Pulse Ox 10/30/20 05:50 36.2 C 106 H 18 206/117 H 99 10/30/20 05:10 218/118 H 10/30/20 04:01 107 H 18 244/133 H 100 10/30/20 03:20 106 H 234/134 H 10/30/20 02:30 103 H 18 251/138 H 97 10/30/20 01:45 103 H 18 228/127 H 97 10/30/20 01:10 35.8 C L 99 18 245/129 H 97 - My Orders Last 24 Hours: My Active Orders 10/30/20 01:18 Blood Glucose Check, Bedside [RC] ONETIME 10/30/20 01:36 Cardiac Monitoring [RC] . DIRECTED Pulse Oximetry [RC] ASDIRECTED 10/30/20 02:29 EKG 12 Lead [EKG Documentation Completion] [RC] STAT 10/30/20 02:30 Sodium Chloride 0.9% [Normal Saline] 1,000 ml IV ASDIRECTED 10/30/20 04:00 Dextrose 50% in Water 50 ml IV ASDIRECTED PRN Glucagon,Human Recombinant [GlucaGen] 1 mg IM ASDIRECTED PRN 10/30/20 05:22 Admission Status [Patient Status] [ADT] Stat 10/30/20 05:30 niCARdipine/Normal Saline [Cardenein NS 40 MG/200 ML] 40 mg in 200 ml IV TITRATE 10/30/20 06:04 Dextrose 50% in Water 50 ml IV ASDIRECTED PRN Glucagon,Human Recombinant [GlucaGen] 1 mg IM ASDIRECTED PRN - Assessment/Plan Last 24 Hours: My Active Orders 10/30/20 01:18 Blood Glucose Check, Bedside [RC] ONETIME 10/30/20 01:36 Cardiac Monitoring [RC] . DIRECTED Pulse Oximetry [RC] ASDIRECTED 10/30/20 02:29 EKG 12 Lead [EKG Documentation Completion] [RC] STAT 10/30/20 02:30 Sodium Chloride 0.9% [Normal Saline] 1,000 ml IV ASDIRECTED 10/30/20 04:00 Dextrose 50% in Water 50 ml IV ASDIRECTED PRN Glucagon,Human Recombinant [GlucaGen] 1 mg IM ASDIRECTED PRN 10/30/20 05:22 Admission Status [Patient Status] [ADT] Stat 10/30/20 05:30 niCARdipine/Normal Saline [Cardenein NS 40 MG/200 ML] 40 mg in 200 ml IV TITRATE 10/30/20 06:04 Dextrose 50% in Water 50 ml IV ASDIRECTED PRN Glucagon,Human Recombinant [GlucaGen] 1 mg IM ASDIRECTED PRN
[2020-10-30] MEDS ORDERED: Morphine 4 MG/ML Syringe IVPUSH ONE (01:45)
[2020-10-30] MEDS ORDERED: Ondansetron 4 MG/2 ML SDV IVPUSH ONE (02:28)
[2020-10-30] MEDS ORDERED: Labetalol 100 MG/20 ML MDV IVPUSH ONE (02:30)
[2020-10-30] MEDS ORDERED: Sodium Chloride 0.9% 1,000 ML IV SCH (02:30)
--- NOTE | 2020-10-30 02:43 | CT ---
INDICATION: Left upper quadrant pain and coffee ground emesis. TECHNIQUE: Axial images were obtained from the diaphragm to the pubic symphysis. Reformats were obtained in the coronal and sagittal plane. IV Contrast: None Oral Contrast: None COMPARISON: Abdomen and pelvis CT 07/19/2020 FINDINGS: Lower chest: Unremarkable. Liver: Unremarkable. Normal in size and attenuation. No masses. Gallbladder and bile ducts: Unremarkable. No stones or inflammation. No biliary dilatation. Spleen: Unremarkable. Normal in size without mass. Pancreas: Unremarkable. No mass or inflammation. Adrenal glands: Unremarkable. No nodules. Kidneys: Mild nonspecific fat stranding surrounding the kidneys bilaterally. No nephrolithiasis or hydronephrosis. Cyst lower pole left kidney measuring 12 millimeters. Vasculature: Atherosclerosis. GI tract: Somewhat limited evaluation secondary to patient motion. Stomach grossly unremarkable. No dilated loops of large or small intestine. No localizing inflammation. Pelvis: Moderate bladder distention. Bones: Unremarkable for age. IMPRESSION: 1. No dilated bowel or localizing inflammation. 2. Nonspecific fat stranding surrounding the kidneys. No hydronephrosis or ureteral stone seen. Please note that all CT scans at this facility use dose modulation, iterative reconstruction, and/or weight-based dosing when appropriate to reduce radiation dose to as low as reasonably achievable. Dictated by Kj Meyer MD @ Oct 30 2020 2:36AM Signed by Dr. Kj Meyer @ Oct 30 2020 2:43AM
[2020-10-30] MEDS ORDERED: HYDROmorphone 1 MG/ML Syringe IVPUSH ONE (03:22)
[2020-10-30] MEDS ORDERED: Insulin Regular, Human 100 Units/ML 10 ML Vial SUBCUT ONE ×2 (04:00→06:04)
[2020-10-30] MEDS ORDERED: Glucagon,Human Recombinant 1 MG Vial IM PRN ×2 (04:00→06:04)
[2020-10-30] MEDS ORDERED: hydrALAZINE 20 MG/ML SDV IVPUSH ONE ×2 (04:03→04:47)
[2020-10-30] MEDS ORDERED: hydrALAZINE 20 MG/ML SDV ONE (04:06)
[2020-10-30] MEDS ORDERED: diphenhydrAMINE 50 MG/ML SDV IVPUSH ONE (05:08)
[2020-10-30] MEDS ORDERED: Haloperidol Lactate 5 MG/ML SDV IM ONE (05:08)
[2020-10-30] MEDS ORDERED: niCARdipine/Normal Saline 40 MG/200 ML BAG IV SCH (05:30)
[2020-10-30] MEDS ORDERED: NICARDIPINE ONE (05:32)
[2020-10-30] MEDS ORDERED: SODIUM CHLORIDE ONE (05:32)
[2020-10-30] MEDS ORDERED: 50% Dextrose in Water 50 ML Syringe IV PRN (06:04)
[2020-10-30] MEDS ORDERED: Promethazine 25 MG/ML SDV IM PRN (06:37)
--- NOTE | 2020-10-30 06:46 | PCM.EKG ---
#1 Interpretation EKG Date: 10/30/20 Time: :29 Rhythm: NSR Rate (Beats/Min): 103 [place]: Normal P-Wave: Present QRS: Normal ST-T: Normal QT: Normal Comparison: Other: (unable to view prior EKGs) EKG Interpretation Comments: Sinus Tachycardia with LBBB
[2020-10-30] MEDS ORDERED: HYDROmorphone 1 MG/ML Syringe IVPUSH PRN (06:47)
[2020-10-30] MEDS ORDERED: Pantoprazole 40 MG in Sodium Chloride 0.9% 10 ML IV SCH (07:30)
[2020-10-30 07:34] LABS: CARBON DIOXIDE,CO2 20.8 mmol/L (21.0-32.0); POTASSIUM,K 4.6 mmol/L (3.5-5.1)
[2020-10-30] MEDS: Insulin Aspart 100 Units/ML 3 ML Pen SUBCUT SCH ×2 (07:38→12:50)
--- NOTE | 2020-10-30 07:53 | PCM.HP.2 ---
H&P History of Present Illness - General Date of Service: 10/30/20 Admit Problem/Dx: Admission Diagnosis/Problem Admission Diagnosis/Problem Hypertensive urgency Source of Information: Patient History Limitations: Reports: No Limitations - History of Present Illness Initial Comments - Free Text/Narative: This 35-year-old male with past medical history of DM type I, gastroparesis, HTN, CKD presented to the ER with complaints of nausea vomiting and abdominal pain. He reports that he has been doing really well as an outpatient and has not had any in hospital admissions. He reports that he is following up with his specialist and actually has vein mapping appointment tomorrow for the start of dialysis. He reports he also got a continuous glucose monitor and has been m onitoring his glucose quite frequently and has been taking Lantus 15 units at night along with NovoLog scale with meals. He reports that the pain came on suddenly overnight and he had some dark emesis. He reports it looked like blood to him. It was seen in the ER and was tested with Hemoccult strip that showed it was positive. It did not look like coffee-ground emesis per report. He reports at home he normally is not eating a significant amount. He reports that with his new renal diet his diet is quite limited. He has been tolerating mainly clear liquid to full liquids along with fresh fruits with low fiber. He denies any chest pain or shortness of breath. No sinus congestion fevers or neck pain. He denies any recreational drug use no tobacco use and no alcohol use. In the ER white count slightly elevated at 11.98. Hemoglobin 9.9 platelets 300,000 INR 1.02 lactic acid 1.9. Bicarb 20.8 BUN 47 creatinine 5.6. Which is his new baseline which she has been following with nephrology. Blood sugars were elevated 400s and 300s. He reports he had not taken his Lantus because he was throwing up they did give him 5 units of insulin in the ER. Alcohol was negative. Covid swab positive. Patient has been Covid positive since June he reports he has not had any symptoms and has not had any treatment. In the ER blood pressures were noted to quite elevated to 45/129 with a heart rate of 99. He was having significant amount of pain and was treated with morphine Haldol Phenergan and Benadryl. Patient was also started on nicardipine drip. He was transferred to the ICU for further management. Abdomen Pain Score (Numeric/FACES): 8 - Related Data Allergies/Adverse Reactions: Allergies Allergy/AdvReac Type Severity Reaction Status Date / Time shrimp Allergy Severe Swelling Verified 10/30/20 01:24 iodine Allergy Unknown Anaphylactic Verified 10/30/20 01:24 Shock Penicillins Allergy Unknown Anaphylactic Verified 10/30/20 01:24 Shock shellfish derived Allergy Anaphylactic Verified 10/30/20 01:24 Shock gluten Allergy Severe Muscle Uncoded 10/30/20 01:24 Aches Home Medications: Home Meds Doxazosin [Cardura] 8 mg PO BEDTIME 09/29/19 [History] Metoprolol Succinate 200 mg PO DAILY 09/29/19 [History] atorvaSTATin [Lipitor] 80 mg PO BEDTIME 09/29/19 [History] Insulin Aspart [NovoLOG] 0 unit SUBCUT .UP TO 60 UN DAILY 09/30/19 [History] Metoclopramide [Reglan] 5 mg PO TIDAC #90 tablet 10/10/19 [Rx] Aspirin [Adult Low Dose Aspirin EC] 81 mg PO DAILY 12/07/19 [History] Enalapril Maleate 20 mg PO DAILY 12/07/19 [History] Insulin Glarg,Human.Rec.Analog [Lantus] 15 mg SUBCUT BEDTIME 12/07/19 [History] Iron Ag,Ps/C/Fa6/B12/Zn/SA/Sto [Niferex Tablet] 150 mg PO BID 12/07/19 [History] amLODIPine Besylate [Amlodipine Besylate] 10 mg PO DAILY 12/07/19 [History] hydroCHLOROthiazide [Hydrochlorothiazide] 25 mg PO DAILY 12/07/19 [History] hydrALAZINE [Apresoline] 50 mg PO Q8H #60 tablet 07/14/20 [Rx] Furosemide 40 mg PO DAILY 10/30/20 [History] Insulin Aspart [NovoLOG] ASDIRECTED 10/30/20 [History] Ondansetron [Zofran ODT] 4 mg PO Q8H PRN 10/30/20 [History] Pantoprazole Sodium [Protonix] 40 mg PO BID 10/30/20 [History] diphenhydrAMINE [Benadryl] 50 mg PO BEDTIME PRN 10/30/20 [History] Past Medical History - Past Health History Medical/Surgical History: Denies Medical/Surgical History HEENT History: Reports: Impaired Vision Other HEENT History: blind right eye Cardiovascular History: Reports: Hypertension Respiratory History: Reports: None Gastrointestinal History: Reports: Gastritis, GERD, Hiatal Hernia, Other (See Below) Other Gastrointestinal History: h/o gastric ulcers, h/o hiatal hernia; gastropa resis Genitourinary History: Reports: Chronic Renal Insuffiency, Diabetic Nephropathy Musculoskeletal History: Reports: Amputation Other Musculoskeletal History: RLE Neurological History: Reports: Neuropathy, Peripheral Other Neuro History: stroke Psychiatric History: Reports: Anxiety Endocrine/Metabolic History: Reports: Diabetes, Type I Other Endocrine/Metabolic History: brittle diabetic. History of hyperkalemia and DKA Insulin Pump Model and Antenna Design Engineer: None Hematologic History: Reports: Anemia Immunologic History: Reports: None Oncologic (Cancer) History: Reports: None Dermatologic History: Reports: Other (See Below) Other Dermatologic History: diabetic foot ulcers - Infectious Disease History Infectious Disease History: Reports: Chicken Pox Other Infectious Disease History: 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 - Past Surgical History Head Surgeries/Procedures: Reports: None HEENT Surgical History: Reports: None Cardiovascular Surgical History: Reports: None Respiratory Surgical History: Reports: None GI Surgical History: Reports: None Male Surgical History: Reports: None Endocrine Surgical History: Reports: None Neurological Surgical History: Reports: None Musculoskeletal Surgical History: Reports: Amputation Other Musculoskeletal Surgeries/Procedures:: right BKA Oncologic Surgical History: Reports: None Dermatological Surgical History: Reports: None Social & Family History - Family History Family Medical History: No Pertinent Family History Cardiac: Reports: High Cholesterol, Hypertension OBGYN: Reports: Neurological: Reports: None Psychiatric: Reports: Anxiety - Caffeine Use Caffeine Use: Reports: None Other Caffeine Use: daily Caffeine Use Comment: patient is uncooperated - Recreational Drug Use Recreational Drug Use: No - Living Situation & Occupation Living situation: Reports: Single Occupation: Employed (Currently unemployed.) H&P Review of Systems - Review of Systems: Review Of Systems: See Below General: Reports: No Symptoms. Denies: Fever, Chills, Malaise, Weakness HEENT: Reports: No Symptoms Pulmonary: Reports: No Symptoms. Denies: Shortness of Breath, Cough Cardiovascular: Reports: Chest Pain. Denies: Dyspnea on Exertion Gastrointestinal: Reports: Abdominal Pain, Nausea. Denies: Black Stool, Bloody Stool Genitourinary: Reports: No Symptoms. Denies: Dysuria Musculoskeletal: Reports: No Symptoms Skin: Reports: No Symptoms Psychiatric: Reports: No Symptoms. Denies: Confusion, Anxiety Neurological: Reports: No Symptoms. Denies: Confusion Hematologic/Lymphatic: Reports: No Symptoms Immunologic: Reports: No Symptoms Exam - Exam Exam: See Below - Vital Signs Vital Signs: Last Vital Signs Temp 97.2 F 10/30/20 05:50 Pulse 106 H 10/30/20 05:50 Resp 13 10/30/20 06:51 BP 135/70 10/30/20 06:51 Pulse Ox 96 10/30/20 06:59 Weight: 81.647 kg - Exam General: Alert, Oriented, Cooperative HEENT: Conjunctiva Clear, Mucosa Moist & [place], Posterior Pharynx Clear Neck: Supple, Trachea Midline Lungs: Clear to Auscultation, Normal Respiratory Effort Cardiovascular: Regular Rate, Regular Rhythm GI/Abdominal Exam: Normal Bowel Sounds, Soft, Non-Tender Extremities: Normal Inspection, Normal Range of Motion, Non-Tender, No Pedal Edema Skin: Warm, Dry, Intact Neuro Extensive - Mental Status: Alert, Oriented x3 - Patient Data Lab Results Last 24 hrs: Laboratory Results - last 24 hr 10/30/20 10/30/20 10/30/20 Range/Units 01:14 01:14 01:14 WBC (4.0-11.0) K/uL RBC (4.50-5.90) M/uL Hgb (13.0-17.0) g/dL Hct (38.0-50.0) % MCV (80.0-98.0) fL MCH (27.0-32.0) pg MCHC (31.0-37.0) g/dL RDW Std Deviation (28.0-62.0) fl RDW Coeff of Dania (11.0-15.0) % Plt Count (150-400) K/uL MPV (7.40-12.00) fL Neut % (Auto) (48.0-80.0) % Lymph % (Auto) (16.0-40.0) % Parmer % (Auto) (0.0-15.0) % Eos % (Auto) (0.0-7.0) % Baso % (Auto) (0.0-1.5) % Neut # (Auto) (1.4-5.7) K/uL Lymph # (Auto) (0.6-2.4) K/uL Parmer # (Auto) (0.0-0.8) K/uL Eos # (Auto) (0.0-0.7) K/uL Baso # (Auto) (0.0-0.1) K/uL Nucleated RBC % /100WBC Nucleated RBCs # K/uL INR 1.02 Lactate 1.9 (0.20-2.00) mmol/L Sodium (136-148) mmol/L Potassium (3.5-5.1) mmol/L Chloride (98-107) mmol/L Carbon Dioxide (21.0-32.0) mmol/L BUN (7.0-18.0) mg/dL Creatinine (0.8-1.3) mg/dL Est Cr Clr Drug Dosing mL/min Estimated GFR (MDRD) ml/min Glucose (74-106) mg/dL Calcium (8.5-10.1) mg/dL Ethyl Alcohol < 3.0 mg/dL SARS-CoV-2 RNA (BK) (NEGATIVE) Blood Type Antibody Screen 10/30/20 10/30/20 10/30/20 Range/Units 01:14 01:38 01:50 WBC (4.0-11.0) K/uL RBC (4.50-5.90) M/uL Hgb 9.9 L (13.0-17.0) g/dL Hct 31.6 L (38.0-50.0) % MCV (80.0-98.0) fL MCH (27.0-32.0) pg MCHC (31.0-37.0) g/dL RDW Std Deviation (28.0-62.0) fl RDW Coeff of Dania (11.0-15.0) % Plt Count (150-400) K/uL MPV (7.40-12.00) fL Neut % (Auto) (48.0-80.0) % Lymph % (Auto) (16.0-40.0) % Parmer % (Auto) (0.0-15.0) % Eos % (Auto) (0.0-7.0) % Baso % (Auto) (0.0-1.5) % Neut # (Auto) (1.4-5.7) K/uL Lymph # (Auto) (0.6-2.4) K/uL Parmer # (Auto) (0.0-0.8) K/uL Eos # (Auto) (0.0-0.7) K/uL Baso # (Auto) (0.0-0.1) K/uL Nucleated RBC % /100WBC Nucleated RBCs # K/uL INR Lactate (0.20-2.00) mmol/L Sodium (136-148) mmol/L Potassium (3.5-5.1) mmol/L Chloride (98-107) mmol/L Carbon Dioxide (21.0-32.0) mmol/L BUN (7.0-18.0) mg/dL Creatinine (0.8-1.3) mg/dL Est Cr Clr Drug Dosing mL/min Estimated GFR (MDRD) ml/min Glucose (74-106) mg/dL Calcium (8.5-10.1) mg/dL Ethyl Alcohol mg/dL SARS-CoV-2 RNA (BK) POSITIVE H (NEGATIVE) Blood Type O POSITIVE Antibody Screen NEGATIVE 10/30/20 10/30/20 Range/Units 07:00 07:00 WBC 11.98 H (4.0-11.0) K/uL RBC 4.51 (4.50-5.90) M/uL Hgb 9.8 L (13.0-17.0) g/dL Hct 30.6 L (38.0-50.0) % MCV 67.8 L (80.0-98.0) fL MCH 21.7 L (27.0-32.0) pg MCHC 32.0 (31.0-37.0) g/dL RDW Std Deviation 38.5 (28.0-62.0) fl RDW Coeff of Dania 16 H (11.0-15.0) % Plt Count 300 (150-400) K/uL MPV 10.90 (7.40-12.00) fL Neut % (Auto) 90.8 H (48.0-80.0) % Lymph % (Auto) 7.4 L (16.0-40.0) % Parmer % (Auto) 1.6 (0.0-15.0) % Eos % (Auto) 0.0 (0.0-7.0) % Baso % (Auto) 0.2 (0.0-1.5) % Neut # (Auto) 10.9 H (1.4-5.7) K/uL Lymph # (Auto) 0.9 (0.6-2.4) K/uL Parmer # (Auto) 0.2 (0.0-0.8) K/uL Eos # (Auto) 0.0 (0.0-0.7) K/uL Baso # (Auto) 0.0 (0.0-0.1) K/uL Nucleated RBC % 0.0 /100WBC Nucleated RBCs # 0 K/uL INR Lactate (0.20-2.00) mmol/L Sodium 141 (136-148) mmol/L Potassium 4.6 (3.5-5.1) mmol/L Chloride 107 (98-107) mmol/L Carbon Dioxide 20.8 L (21.0-32.0) mmol/L BUN 47 H (7.0-18.0) mg/dL Creatinine 5.6 H (0.8-1.3) mg/dL Est Cr Clr Drug Dosing 18.59 mL/min Estimated GFR (MDRD) 14.2 ml/min Glucose 359 H (74-106) mg/dL Calcium 7.7 L (8.5-10.1) mg/dL Ethyl Alcohol mg/dL SARS-CoV-2 RNA (BK) (NEGATIVE) Blood Type Antibody Screen Result Diagrams: 10/30/20 07:00 10/30/20 07:00 Sepsis Event Note - Evaluation Sepsis Screening Result: No Definite Risk - Focused Exam Vital Signs: Vital Signs Temp Pulse Resp BP Pulse Ox 10/30/20 06:59 96 10/30/20 06:51 13 135/70 97 10/30/20 06:28 16 157/90 H 96 10/30/20 05:50 97.2 F 106 H 18 206/117 H 99 10/30/20 05:10 218/118 H 10/30/20 04:01 107 H 18 244/133 H 100 10/30/20 03:20 106 H 234/134 H 10/30/20 02:30 103 H 18 251/138 H 97 10/30/20 01:45 103 H 18 228/127 H 97 10/30/20 01:10 96.5 F L 99 18 245/129 H 97 - Problem List (1) Hypertensive urgency SNOMED Code(s): 193474389 ICD Code: I16.0 - HYPERTENSIVE URGENCY Status: Acute (2) Abdominal pain SNOMED Code(s): 98766493 ICD Code: R10.9 - UNSPECIFIED ABDOMINAL PAIN Status: Acute Priority: High Qualifiers: Abdominal location: generalized Qualified Code(s): R10.84 - Generalized abdominal pain (3) Acute kidney injury superimposed on CKD SNOMED Code(s): 70843603 ICD Code: N17.9 - ACUTE KIDNEY FAILURE, UNSPECIFIED; N18.9 - CHRONIC KIDNEY DISEASE, UNSPECIFIED Status: Acute (4) COVID-19 SNOMED Code(s): 549420889 ICD Code: U07.1 - COVID-19 Status: Acute (5) Gastroparesis SNOMED Code(s): 633548658 ICD Code: K31.84 - GASTROPARESIS Status: Acute Priority: High (6) Renal failure SNOMED Code(s): 28165017 ICD Code: N19 - UNSPECIFIED KIDNEY FAILURE Status: Acute (7) Anemia in chronic kidney disease (CKD) SNOMED Code(s): 603981679 ICD Code: N18.9 - CHRONIC KIDNEY DISEASE, UNSPECIFIED; D63.1 - ANEMIA IN CHRONIC KIDNEY DISEASE Status: Chronic Priority: High Qualifiers: Chronic kidney disease stage: stage 3 (moderate) (8) Blind right eye SNOMED Code(s): 090338892 ICD Code: H54.40 - BLINDNESS, ONE EYE, UNSPECIFIED EYE Status: Chronic Priority: Medium (9) History of CVA (cerebrovascular accident) SNOMED Code(s): 249746282 ICD Code: Z86.73 - PRSNL HX OF TIA (TIA), AND CEREB INFRC W/O RESID DEFICITS Status: Chronic (10) History of GI bleed SNOMED Code(s): 217131267 ICD Code: Z87.19 - PERSONAL HISTORY OF OTHER DISEASES OF THE DIGESTIVE SYSTEM Status: Chronic Problem List Initiated/Reviewed/Updated: Yes Orders Last 24hrs: Active Orders 24 hr Category Date Time Status Admission Status [Patient Status] [ADT] Stat ADT 10/30/20 05:22 Active Antiembolic Devices [RC] PER UNIT ROUTINE Care 10/30/20 06:38 Active Blood Glucose Check, Bedside [RC] ONETIME Care 10/30/20 01:18 Active Blood Glucose Check, Bedside [RC] Q6H Care 10/30/20 06:37 Active Cardiac Monitoring [RC] . DIRECTED Care 10/30/20 01:36 Active Communication Order [RC] PER UNIT ROUTINE Care 10/30/20 06:37 Active Pulse Oximetry [RC] ASDIRECTED Care 10/30/20 01:36 Active Vital Signs [RC] Q1H Care 10/30/20 06:37 Active Nothing per Oral Now Diet [DIET] Diet 10/30/20 Breakfast Active Dextrose 50% in Water Med 10/30/20 04:00 Active 50 ml IV ASDIRECTED PRN Dextrose 50% in Water Med 10/30/20 06:04 Active 50 ml IV ASDIRECTED PRN Doxazosin [Cardura] Med 10/30/20 21:00 Active 4 mg PO BEDTIME Glucagon,Human Recombinant [GlucaGen] Med 10/30/20 04:00 Active 1 mg IM ASDIRECTED PRN Glucagon,Human Recombinant [GlucaGen] Med 10/30/20 06:04 Active 1 mg IM ASDIRECTED PRN HYDROmorphone [Dilaudid] Med 10/30/20 06:47 Active 1 mg IVPUSH Q3H PRN Insulin Aspart [NovoLOG] Med 10/30/20 06:45 Active See Protocol SUBCUT Q6H Metoprolol Succinate [Toprol XL] Med 10/30/20 09:00 Active 200 mg PO DAILY Pantoprazole [ProTONIX IV] 40 mg Med 10/30/20 07:30 Active Sodium Chloride 0.9% [Normal Saline] 10 ml IV BIDAC Promethazine [Phenergan] Med 10/30/20 06:37 Active 25 mg IM Q6H PRN Sodium Chloride 0.9% [Normal Saline] 1,000 ml Med 10/30/20 02:30 Active IV ASDIRECTED amLODIPine Med 10/30/20 09:00 Ordered 10 mg PO DAILY hydrALAZINE [Apresoline] Med 10/30/20 06:45 Ordered 50 mg PO Q8H hydroCHLOROthiazide Med 10/30/20 06:45 Ordered 25 mg PO DAILY niCARdipine/Normal Saline [Cardenein NS 40 MG/200 ML] Med 10/30/20 05:30 Active 40 mg in 200 ml IV TITRATE Sequential Compression Device [OM.PC] Routine Oth 10/30/20 06:37 Ordered Medication Orders Dextrose/Water (Dextrose 50% In Water) 50 ml IV ASDIRECTED PRN PRN Reason: Hypoglycemia Dextrose/Water (Dextrose 50% In Water) 50 ml IV ASDIRECTED PRN PRN Reason: Hypoglycemia Doxazosin Mesylate (Cardura) 4 mg PO BEDTIME MICHAEL Glucagon (Glucagen) 1 mg IM ASDIRECTED PRN PRN Reason: Hypoglycemia Glucagon (Glucagen) 1 mg IM ASDIRECTED PRN PRN Reason: Hypoglycemia Hydralazine HCl (Apresoline) 50 mg PO Q8H MICHAEL Hydrochlorothiazide (Hydrochlorothiazide) 25 mg PO DAILY MICHAEL Hydromorphone HCl (Dilaudid) 1 mg IVPUSH Q3H PRN PRN Reason: Pain (severe 7-10) Sodium Chloride (Normal Saline) 1,000 mls @ 999 mls/hr IV ASDIRECTED MICHAEL Last Admin: 10/30/20 02:58 Dose: 999 mls/hr Documented by: ANGELA Nicardipine HCl (Cardenein Ns 40 Mg/200 Ml) 40 mg in 200 mls @ 25 mls/hr IV TITRATE MICHAEL; Protocol Last Titration: 10/30/20 06:51 Dose: 0 mg/hr, 0 mls/hr Documented by: Admin: 10/30/20 05:48 Dose: 5 mg/hr, 25 mls/hr Documented by: ANGELA Pantoprazole Sodium 40 mg/ (Sodium Chloride) 10 mls @ 300 mls/hr IV BIDAC MICHAEL Insulin Aspart (Novolog) 0 unit SUBCUT Q6H [facility]; Protocol Last Admin: 10/30/20 07:38 Dose: 8 units Documented by: REEMA Metoprolol Succinate (Toprol Xl) 200 mg PO DAILY [facility] Non-Formulary Medication (Amlodipine) 10 mg PO DAILY [facility] Promethazine HCl (Phenergan) 25 mg IM Q6H PRN PRN Reason: Nausea/Vomiting Assessment/Plan Comment:: This 35-year-old male admitted with hypertensive urgency and gastroparesis exacerbation. 1. Hypertensive urgency -We will started on nicardipine drip in the ER. -Once pain was controlled blood pressure improved and he was weaned off nicardip ine drip. -Restart home medications including hydralazine hydrochlorothiazide amlodipine metoprolol and enalapril. -Blood pressures improved to 130s/80s 2. Exacerbation of gastroparesis -Given Dilaudid in the ER and kept n.p.o. -Patient feeling much improved this morning and is requesting clear liquid diet. Reports he does not eat very extensive diet at home due to gastroparesis as well as restrictive diet with renal disease as well as diabetes and gluten allergy. -We will start clear liquid diet -Hemoglobin remained stable no further nausea and vomiting. 3. Diabetes type 1 -Patient has had much better control recently. -Has continuous glucometer attached. -Continue Lantus 15 units at bedtime -Continue NovoLog sliding scale with meals 4. CKD, end-stage -Patient is being evaluated by nephrology for the start of dialysis. -Patient is requesting discharge this afternoon as he has venous mapping tomorrow in [place] for fistula placement 5. COVID-19 -Patient asymptomatic patient has been positive since July and June. Patient denies ever having any symptoms. Could be continued detection of virus. He reports he let the renal clinic know. VTE prophylaxis: SCDs only CODE STATUS: Full code Dispo: Likely discharge is afternoon if patient is tolerating full liquid diet and blood pressures improved with home medications. Will transfer to [facility] status. DISCHARGE PLAN: Waqas was doing much better after lunchtime, he improved quicker than felt he would on admission.. He had elevated full liquids. Blood sugars did dip slightly but patient was able to eat and keep blood sugars elevated. Dwain is very eager to be discharged today as he is getting on the road and having to [place] for his renal venous mapping for fistula placement. Blood pressures have improved abdominal pain has improved. He ensures me that he will monitor his glucose closely he did not receive any Lantus last night and he will again monitor blood sugars closely and administer insulin as needed. He will be discharged home today he is to continue home medications and follow-up with nephrology tomorrow as scheduled. Contact PCP for any concerns.
[2020-10-30] MEDS ORDERED: Lactated Ringers 1,000 ML IV SCH (08:00)
[2020-10-30 08:18] VITALS: PULSE 107
[2020-10-30] MEDS ORDERED: Metoprolol Succinate 100 MG Tab.ER PO SCH (09:00)
[2020-10-30] MEDS ORDERED: hydrALAZINE 25 MG Tab PO SCH (09:00)
[2020-10-30] MEDS ORDERED: amLODIPine 5 MG Tab PO SCH (09:00)
[2020-10-30] MEDS ORDERED: Ondansetron 4 MG/2 ML SDV IVPUSH PRN (09:00)
[2020-10-30] MEDS ORDERED: Hydrochlorothiazide 25 MG Tab PO SCH (09:00)
[2020-10-30] MEDS: 50% Dextrose in Water 50 ML Syringe IV PRN ×2 (10:11→12:12)
[2020-10-30 12:06] VITALS: BP 142/79
[2020-10-30] MEDS ORDERED: Doxazosin 4 MG Tab PO SCH (21:00)
== END 2020-10-30 14:00 | disposition home or self-care (01) | DRG 73 ==
LOC: MW.ED 01:08 → MW.ICU 05:22
PROVIDERS: ADMIT Student in an Organized Health Care Education/Training Program; ATTEND Student in an Organized Health Care Education/Training Program
DX: K92.2 Gastrointestinal hemorrhage, unspecified (principal); E10.43 Type 1 diabetes mellitus with diabetic autonomic (poly)neuropathy; E10.65 Type 1 diabetes mellitus with hyperglycemia; U07.1 COVID-19; N18.6 End stage renal disease; Z91.02 Food additives allergy status; N17.9 Acute kidney failure, unspecified; I12.0 Hypertensive chronic kidney disease with stage 5 chronic kidney disease or end stage renal disease; Z79.4 Long term (current) use of insulin; Z91.013 Allergy to seafood; K31.84 Gastroparesis; I16.0 Hypertensive urgency; Z88.0 Allergy status to penicillin; Z88.8 Allergy status to other drugs, medicaments and biological substances; I12.9 Hypertensive chronic kidney disease with stage 1 through stage 4 chronic kidney disease, or unspecified chronic kidney disease; E11.22 Type 2 diabetes mellitus with diabetic chronic kidney disease; N18.9 Chronic kidney disease, unspecified; Z91.011 Allergy to milk products; Z79.82 Long term (current) use of aspirin; Z79.899 Other long term (current) drug therapy; H54.7 Unspecified visual loss; H54.61 Unqualified visual loss, right eye, normal vision left eye; K21.9 Gastro-esophageal reflux disease without esophagitis; K44.9 Diaphragmatic hernia without obstruction or gangrene; K29.70 Gastritis, unspecified, without bleeding; F41.9 Anxiety disorder, unspecified; E10.41 Type 1 diabetes mellitus with diabetic mononeuropathy; E10.42 Type 1 diabetes mellitus with diabetic polyneuropathy; E10.621 Type 1 diabetes mellitus with foot ulcer; Z89.511 Acquired absence of right leg below knee; E10.22 Type 1 diabetes mellitus with diabetic chronic kidney disease
CPT/HCPCS: 36415; 74176; 80179; 82962 ×2; 83605; 85014; 85018; 85610; 86850; 86900; 86901; 93005; C9113; J0360 ×2; J1170; J1200; J2270; J2405; J3490 ×2; J7030; U0002; 80048; 85025; 93010; 96374; 96375; 96376; 99285; 99285-25; A9270-GY; J1815-GY; J7120

== ENCOUNTER 2020-10-31 01:18 | Emergency (ER) | payer MEDICARE, MEDICAID ==
[2020-10-31] MEDS ORDERED: Sodium Chloride 0.9% 10 ML Syringe FLUSH PRN (01:25)
[2020-10-31] MEDS ORDERED: Ondansetron 4 MG/2 ML SDV IVPUSH ONE (01:25)
[2020-10-31] MEDS ORDERED: Pantoprazole 40 MG in Sodium Chloride 0.9% 10 ML IV ONE (01:25)
[2020-10-31] MEDS ORDERED: Sodium Chloride 0.9% 1,000 ML IV ONE (01:25)
[2020-10-31] MEDS ORDERED: Haloperidol Lactate 5 MG/ML SDV IM ONE (01:25)
[2020-10-31] MEDS ORDERED: Sodium Chloride 0.9% 2.5 ML Syringe FLUSH PRN (01:25)
[2020-10-31] MEDS ORDERED: diphenhydrAMINE 50 MG/ML SDV IVPUSH ONE (01:25)
[2020-10-31 01:53] LABS: BLOOD UREA NITROGEN,BUN 49 mg/dL (7.0-18.0); CARBON DIOXIDE,CO2 20.9 mmol/L (21.0-32.0); CHLORIDE,CL 100 mmol/L (98-107); GLUCOSE RANDOM 378 mg/dL (74-106); LIPASE 31 U/L (73-393); POTASSIUM,K 5.1 mmol/L (3.5-5.1); SODIUM,NA 133 mmol/L (136-148)
[2020-10-31] MEDS ORDERED: HYDROmorphone 2 MG/ML Syringe IVPUSH ONE (03:08)
--- NOTE | 2020-10-31 03:08 | EDM.PDOC ---
ED HPI GENERAL MEDICAL PROBLEM - General Chief Complaint: Abdominal Pain Stated Complaint: VOMITTING, NAUSEA, ABD PAIN Time Seen by Provider: 10/31/20 01:22 - History of Present Illness INITIAL COMMENTS - FREE TEXT/NARRATIVE: HISTORY AND PHYSICAL: History of present illness: This is a 35-year-old gentleman with a history significant for diabetes, hypertension, chronic kidney disease who is currently in the process of vein map ping to initiate dialysis, DKA, TIAs, hematemesis, gluten allergy cyclical vomiting syndrome, diabetic gastroparesis, who presents ER today secondary to pain in his abdomen greatest in the midepigastric region. Patient was recently discharged from the hospital after admission for intractable abdominal pain, nausea, vomiting, elevated blood pressure. Patient was discharged after observation for several hours secondary to patient feeling much improved. Patient presents back in the ER today secondary to abdominal discomfort. Patient denies any recent fevers, shakes, chills, diarrhea, dysuria, frequency, urgency. Patient reports no change in his diet. Patient reports no change in stress at home. Patient reports that he has been doing well for several month and has not required hospital admission or evaluation since July up until the last couple days. Patient is unclear as to exacerbating factors. Patient reports no dairy intake. Patient reports extremely bland diet. Patient denies any change in his medications. Patient reports his blood sugars been well controlled Review of systems: As per history of present illness and below otherwise all systems reviewed and negative. Past medical history: As per history of present illness and as reviewed below otherwise noncontributory. Surgical history: As per history of present illness and as reviewed below otherwise nonc ontributory. Social history: No reported history of drug or alcohol abuse. Family history: As per history of present illness and as reviewed below otherwise noncontributory. Physical exam: Constitutional: Patient is oriented to person, place, and time. Appears well- developed and well-nourished. No distress. HEENT: Moist mucous membranes Head: Normocephalic and atraumatic Eyes: Right eye exhibits no discharge. Left eye exhibits no discharge. No scleral icterus Neck: Normal range of motion. No tracheal deviation present. Cardiovascular: Normal rate and regular rhythm. Pulmonary: Effort normal, no respiratory distress. Abd: Soft, nondistended, no rebound/guarding, no psoas or obturator signs, no tenderness at Mcberney's point, no Interiano's sign. Pt does not present with an exam that would be consistent with an acute surgical abdomen at this time tenderness to palpation in the midepigastric region Musculoskeletal: Normal range of motion Neurologic: Alert and oriented to person, place and time. Skin: [place], warm and dry. Psychiatric: Normal mood and affect. Behavior is normal. Judgment and thought content normal. Nursing note and vital signs have been reviewed This patient was seen and evaluated during the 2019 SARS-CoV-2 novel coronavirus pandemic period. Community viral transmission is ongoing at time of this encounter and the emergency department is operating under pandemic response procedures. Diagnostics: CBC, CMP, lipase patient's baseline. Assessment and plan: This is a 35-year-old gentleman with multiple medical issues including cyclical vomiting syndrome, chronic abdominal pain, diabetes, hypertension, chronic renal disease, who presents ER today with an exacerbation of his abdominal pain. Patient reports that he has been doing fairly well for several months up until recently when he has exacerbations been flaring up. Patient reports he was recently discharged from the hospital several hours ago but his pain recurred. Patient presents to the ER today requesting a shot of Dilaudid by name. Patient has agreed to allow Haldol, Benadryl, Protonix, Zofran and opportunity to work. Patient was monitored in the ER for 1 to 2 hours without complete relief of his discomfort although he does appear to be much improved and is not complaining of pain quite as loudly as he was when he first arrived to the ED. I have discussed with the patient his lab results and different options regarding pain management. I have discussed with him my reluctance regarding utilizing opioid pain medicines for chronic pain and my concern regarding issues of addiction. Patient understands my concerns but given that he has had a 3-month hiatus from requiring opiate pain meds in the emergency department, I have agreed to give him a dose here in the ED and have encouraged him to follow-up with his primary care physician/pain medicine doctor soon as possible. Patient reports that he has been prescribed Darvocet by his pain specialist But has not gotten any significant relief from it. Patient reports that he is not requested from his pain specialist Any stronger medication other than Darvocet that he had received. I have encouraged him to speak to his pain specialist physician to further assess his chronic pain and to assist him further with his chronic abdominal discomfort. Reassessment at the time of disposition demonstrates that the patient is in no acute distress. The patient has remained stable throughout the entire ED visit and is without objective evidence for acute process requiring urgent intervention or hospitalization. The patient is stable for discharge, counseling is provided as documented above, discussed symptomatic treatment and specific conditions for return. I have spoken with the patient/caregiver and discussed todays findings, in addition to providing specific details for the plan of care. Questions are answered and there is agreement with the plan. Definitive disposition and diagnosis as appropriate pending reevaluation and review of above. Abdomen Pain Score (Numeric/FACES): 10 - Related Data Allergies Allergy/AdvReac Type Severity Reaction Status Date / Time shrimp Allergy Severe Swelling Verified 10/31/20 01:42 iodine Allergy Unknown Anaphylactic Verified 10/31/20 01:42 Shock Penicillins Allergy Unknown Anaphylactic Verified 10/31/20 01:42 Shock shellfish derived Allergy Anaphylactic Verified 10/31/20 01:42 Shock gluten Allergy Severe Muscle Uncoded 10/31/20 01:42 Aches Home Meds: Home Meds Doxazosin [Cardura] 8 mg PO BEDTIME 09/29/19 [History] Metoprolol Succinate 200 mg PO DAILY 09/29/19 [History] atorvaSTATin [Lipitor] 80 mg PO BEDTIME 09/29/19 [History] Insulin Aspart [NovoLOG] 0 unit SUBCUT .UP TO 60 UN DAILY 09/30/19 [History] Metoclopramide [Reglan] 5 mg PO TIDAC #90 tablet 10/10/19 [Rx] Aspirin [Adult Low Dose Aspirin EC] 81 mg PO DAILY 12/07/19 [History] Enalapril Maleate 20 mg PO DAILY 12/07/19 [History] Insulin Glarg,Human.Rec.Analog [Lantus] 15 mg SUBCUT BEDTIME 12/07/19 [History] Iron Ag,Ps/C/Fa6/B12/Zn/SA/Sto [Niferex Tablet] 150 mg PO BID 12/07/19 [History] amLODIPine Besylate [Amlodipine Besylate] 10 mg PO DAILY 12/07/19 [History] hydroCHLOROthiazide [Hydrochlorothiazide] 25 mg PO DAILY 12/07/19 [History] hydrALAZINE [Apresoline] 50 mg PO Q8H #60 tablet 07/14/20 [Rx] Furosemide 40 mg PO DAILY 10/30/20 [History] Insulin Aspart [NovoLOG] ASDIRECTED 10/30/20 [History] Ondansetron [Zofran ODT] 4 mg PO Q8H PRN 10/30/20 [History] Pantoprazole Sodium [Protonix] 40 mg PO BID 10/30/20 [History] diphenhydrAMINE [Benadryl] 50 mg PO BEDTIME PRN 10/30/20 [History] Past Medical History - Past Health History Medical/Surgical History: Denies Medical/Surgical History HEENT History: Reports: Impaired Vision Other HEENT History: blind right eye Cardiovascular History: Reports: Hypertension Respiratory History: Reports: None Gastrointestinal History: Reports: Gastritis, GERD, Hiatal Hernia, Other (See Below) Other Gastrointestinal History: h/o gastric ulcers, h/o hiatal hernia; gastroparesis Genitourinary History: Reports: Chronic Renal Insuffiency, Diabetic Nephropathy Musculoskeletal History: Reports: Amputation Other Musculoskeletal History: RLE Neurological History: Reports: Neuropathy, Peripheral Other Neuro History: stroke Psychiatric History: Reports: Anxiety Endocrine/Metabolic History: Reports: Diabetes, Type I Other Endocrine/Metabolic History: brittle diabetic. History of hyperkalemia and DKA Insulin Pump Model and Court Liaison: None Hematologic History: Reports: Anemia Immunologic History: Reports: None Oncologic (Cancer) History: Reports: None Dermatologic History: Reports: Other (See Below) Other Dermatologic History: diabetic foot ulcers - Infectious Disease History Infectious Disease History: Reports: Chicken Pox, Other (See Below) Other Infectious Disease History: Covid-19 - Past Surgical History Head Surgeries/Procedures: Reports: None HEENT Surgical History: Reports: None Cardiovascular Surgical History: Reports: None Respiratory Surgical History: Reports: None GI Surgical History: Reports: None Male Surgical History: Reports: None Endocrine Surgical History: Reports: None Neurological Surgical History: Reports: None Musculoskeletal Surgical History: Reports: Amputation Other Musculoskeletal Surgeries/Procedures:: right BKA Oncologic Surgical History: Reports: None Dermatological Surgical History: Reports: None Social & Family History - Family History Family Medical History: No Pertinent Family History Cardiac: Reports: High Cholesterol, Hypertension OBGYN: Reports: Neurological: Reports: None Psychiatric: Reports: Anxiety - Caffeine Use Caffeine Use: Reports: None Other Caffeine Use: daily Caffeine Use Comment: patient is uncooperated - Recreational Drug Use Recreational Drug Use: No - Living Situation & Occupation Living situation: Reports: Single Occupation: Employed (Currently unemployed.) ED ROS GENERAL - Review of Systems Review Of Systems: See Below ED EXAM, GENERAL - Physical Exam Exam: See Below Course - Vital Signs Last Recorded V/S: Last Vital Signs Temp 97.7 F 10/31/20 01:20 Pulse 100 10/31/20 02:19 Resp 20 10/31/20 02:19 BP 203/128 H 10/31/20 02:19 Pulse Ox 96 10/31/20 02:19 - Orders/Labs/Meds Orders: Active Orders 24 hr Category Date Time Status Sodium Chloride 0.9% [Saline Flush] Med 10/31/20 01:25 Active 10 ml FLUSH ASDIRECTED PRN Sodium Chloride 0.9% [Saline Flush] Med 10/31/20 01:25 Active 2.5 ml FLUSH ASDIRECTED PRN Saline Lock Insert [OM.PC] Stat Oth 10/31/20 01:25 Ordered Medication Orders Sodium Chloride (Saline Flush) 10 ml FLUSH ASDIRECTED PRN PRN Reason: Keep Vein Open Last Admin: 10/31/20 01:33 Dose: 10 ml Documented by: ANNE Sodium Chloride (Saline Flush) 2.5 ml FLUSH ASDIRECTED PRN PRN Reason: Keep Vein Open Last Admin: 10/31/20 01:33 Dose: 2.5 ml Documented by: ANNE Labs: Laboratory Tests 10/31/20 10/31/20 10/31/20 Range/Units 01:24 01:24 01:56 WBC 12.63 H (4.0-11.0) K/uL RBC 4.25 L (4.50-5.90) M/uL Hgb 9.1 L (13.0-17.0) g/dL Hct 28.7 L (38.0-50.0) % MCV 67.5 L (80.0-98.0) fL MCH 21.4 L (27.0-32.0) pg MCHC 31.7 (31.0-37.0) g/dL RDW Std Deviation 38.4 (28.0-62.0) fl RDW Coeff of Dania 16 H (11.0-15.0) % Plt Count 304 (150-400) K/uL MPV 10.50 (7.40-12.00) fL Neut % (Auto) 79.3 (48.0-80.0) % Lymph % (Auto) 14.3 L (16.0-40.0) % [place] % (Auto) 5.9 (0.0-15.0) % Eos % (Auto) 0.2 (0.0-7.0) % Baso % (Auto) 0.3 (0.0-1.5) % Neut # (Auto) 10.0 H (1.4-5.7) K/uL Lymph # (Auto) 1.8 (0.6-2.4) K/uL [place] # (Auto) 0.8 (0.0-0.8) K/uL Eos # (Auto) 0.0 (0.0-0.7) K/uL Baso # (Auto) 0.0 (0.0-0.1) K/uL Nucleated RBC % 0.0 /100WBC Nucleated RBCs # 0 K/uL Sodium 133 L (136-148) mmol/L Potassium 5.1 (3.5-5.1) mmol/L Chloride 100 (98-107) mmol/L Carbon Dioxide 20.9 L (21.0-32.0) mmol/L BUN 49 H (7.0-18.0) mg/dL Creatinine 5.9 H (0.8-1.3) mg/dL Est Cr Clr Drug Dosing 17.64 mL/min Estimated GFR (MDRD) 13.4 ml/min Glucose 378 H (74-106) mg/dL POC Glucose 334 H (60-110) mg/dL Calcium 8.1 L (8.5-10.1) mg/dL Total Bilirubin 0.3 (0.2-1.0) mg/dL AST 47 H (15-37) IU/L ALT 33 (14-63) IU/L Alkaline Phosphatase 108 (46-116) U/L Total Protein 6.9 (6.4-8.2) g/dL Albumin 2.9 L (3.4-5.0) g/dL Globulin 4.0 (2.6-4.0) g/dL Albumin/Globulin Ratio 0.7 L (0.9-1.6) Lipase 31 L (73-393) U/L Ethyl Alcohol < 3.0 mg/dL Meds: Medications Generic Name Dose Route Start Last Admin Trade Name Juan Pabloq PRN Reason Stop Dose Admin Sodium Chloride 10 ml 10/31/20 01:25 10/31/20 01:33 Saline Flush FLUSH 10 ml ASDIRECTED PRN Administration Keep Vein Open Sodium Chloride 2.5 ml 10/31/20 01:25 10/31/20 01:33 Saline Flush FLUSH 2.5 ml ASDIRECTED PRN Administration Keep Vein Open Discontinued Medications Generic Name Dose Route Start Last Admin Trade Name Juan Pabloq PRN Reason Stop Dose Admin Diphenhydramine HCl 50 mg 10/31/20 01:25 10/31/20 01:34 Benadryl IVPUSH 10/31/20 01:26 50 mg ONETIME ONE Administration Haloperidol Lactate 5 mg 10/31/20 01:25 10/31/20 01:45 Haldol IM 10/31/20 01:26 5 mg ONETIME ONE Administration Hydromorphone HCl 1 mg 10/31/20 03:08 Dilaudid IVPUSH 10/31/20 03:09 ONETIME ONE Hydromorphone HCl Confirm 10/31/20 03:09 Dilaudid Administered 10/31/20 03:10 Dose 1 mg .ROUTE .STK-MED ONE Sodium Chloride 1,000 mls @ 999 mls/hr 10/31/20 01:25 10/31/20 01:33 Normal Saline IV 10/31/20 02:25 999 mls/hr .Bolus ONE Administration Pantoprazole Sodium 40 mg/ 10 mls @ 300 mls/hr 10/31/20 01:25 10/31/20 01:33 Sodium Chloride IV 10/31/20 01:26 300 mls/hr NOW ONE Administration Ondansetron HCl 4 mg 10/31/20 01:25 10/31/20 01:34 Zofran IVPUSH 10/31/20 01:26 4 mg ONETIME ONE Administration Departure - Departure Time of Disposition: 03:11 Disposition: Home, Self-Care 01 Condition: Good Clinical Impression: Chronic abdominal pain, History of - diabetes mellitus, Mild dehydration, Uncontrolled diabetes mellitus, Cyclical vomiting, Intractable nausea and vomiting Diabetes mellitus type I Qualifiers: Diabetes mellitus complication status: with kidney complications Diabetes mellitus complication detail: with chronic kidney disease Chronic kidney disease stage: stage 3 (moderate) Hypertension Qualifiers: Hypertension type: essential hypertension Qualified Code(s): I10 - Essential (primary) hypertension - Discharge Information Instructions: Dehydration, Adult, [id number], Type 1 Diabetes Mellitus, Self Care, Adult, Chronic Pain, Adult, Nausea and Vomiting, Adult, Cyclic Vomiting Syndrome, Adult Forms: ED Department Discharge Additional Instructions: You have been seen and evaluated in the ER today secondary to recurrence of your chronic abdominal pain and cyclical vomiting syndrome. In the ED you have been given a dose of Haldol, Benadryl, Zofran, Protonix. You have also been given a dose of Dilaudid 1 mg IV. Please make an appointment to see your family doctor and pain specialist physician tomorrow so they can assist you further with your chronic pain and cyclical vomiting syndrome. Please return to the ER if you have any new or concerning symptoms. The following information is given to patients seen in the emergency department who are being discharged to home. This information is to outline your options for follow-up care. We provide all patients seen in our emergency department with a follow-up referral. The need for follow-up, as well as the timing and circumstances, are variable depending upon the specifics of your emergency department visit. If you don't have a primary care physician on staff, we will provide you with a referral. We always advise you to contact your personal physician following an emergency department visit to inform them of the circumstance of the visit and for follow-up with them and/or the need for any referrals to a consulting specialist. The emergency department will also refer you to a specialist when appropriate. This referral assures that you have the opportunity for follow-up care with a specialist. All of these measure are taken in an effort to provide you with optimal care, which includes your follow-up. Under all circumstances we always encourage you to contact your private physician who remains a resource for coordinating your care. When calling for follow-up care, please make the office aware that this follow-up is from your recent emergency room visit. If for any reason you are refused follow-up, please contact the [facility] Emergency Department at and asked to speak to the emergency department charge nurse. [facility] - [facility] [address] [place] [id number] [facility] [address] [place] [id number] Sepsis Event Note (ED) - Evaluation Sepsis Screening Result: No Definite Risk - Focused Exam Vital Signs: Vital Signs Temp Pulse Resp BP Pulse Ox 10/31/20 02:19 100 20 203/128 H 96 10/31/20 01:20 97.7 F 102 H 18 203/113 H 97 - My Orders Last 24 Hours: My Active Orders 10/31/20 01:25 Sodium Chloride 0.9% [Saline Flush] 10 ml FLUSH ASDIRECTED PRN Sodium Chloride 0.9% [Saline Flush] 2.5 ml FLUSH ASDIRECTED PRN Saline Lock Insert [OM.PC] Stat - Assessment/Plan Last 24 Hours: My Active Orders 10/31/20 01:25 Sodium Chloride 0.9% [Saline Flush] 10 ml FLUSH ASDIRECTED PRN Sodium Chloride 0.9% [Saline Flush] 2.5 ml FLUSH ASDIRECTED PRN Saline Lock Insert [OM.PC] Stat
[2020-10-31] MEDS ORDERED: HYDROmorphone 1 MG/ML Syringe ONE (03:09)
[2020-10-31] MEDS ORDERED: HYDROmorphone 1 MG/ML Syringe IVPUSH ONE (03:11)
[2020-10-31 03:22] VITALS: BP 198/118; PULSE 90
== END 2020-10-31 03:22 | disposition home or self-care (01) ==
LOC: MW.ED 01:18
DX: E10.65 Type 1 diabetes mellitus with hyperglycemia (principal); I12.9 Hypertensive chronic kidney disease with stage 1 through stage 4 chronic kidney disease, or unspecified chronic kidney disease; N18.30 Chronic kidney disease, stage 3 unspecified; E10.22 Type 1 diabetes mellitus with diabetic chronic kidney disease; E86.0 Dehydration; E10.43 Type 1 diabetes mellitus with diabetic autonomic (poly)neuropathy; R11.15 Cyclical vomiting syndrome unrelated to migraine; K31.84 Gastroparesis; K21.9 Gastro-esophageal reflux disease without esophagitis; E10.21 Type 1 diabetes mellitus with diabetic nephropathy; E10.42 Type 1 diabetes mellitus with diabetic polyneuropathy; Z86.73 Personal history of transient ischemic attack (TIA), and cerebral infarction without residual deficits; Z91.013 Allergy to seafood; Z91.048 Other nonmedicinal substance allergy status; Z88.0 Allergy status to penicillin; Z79.899 Other long term (current) drug therapy; Z79.82 Long term (current) use of aspirin
CPT/HCPCS: 36415; 80053; 80179; 82962; 83690; 85025; 96372; 96374; 96375; 99284; C9113; J1170; J1200; J1630; J2405; J7030

== ENCOUNTER 2020-11-11 17:29 | Emergency (ER) | payer MEDICARE, MEDICAID ==
[2020-11-11] MEDS ORDERED: Sodium Chloride 0.9% 2.5 ML Syringe FLUSH PRN (17:32)
[2020-11-11] MEDS ORDERED: Sodium Chloride 0.9% 10 ML Syringe FLUSH PRN (17:32)
[2020-11-11] MEDS ORDERED: Ondansetron 4 MG/2 ML SDV IVPUSH ONE (17:32)
[2020-11-11] MEDS ORDERED: Sodium Chloride 0.9% 1,000 ML IV ONE (17:33)
[2020-11-11] MEDS ORDERED: Pantoprazole 80 MG in Sodium Chloride 0.9% 20 ML IVPUSH ONE (17:33)
[2020-11-11] MEDS ORDERED: Pantoprazole 80 MG in Sodium Chloride 0.9% 100 ML IV SCH (17:45)
--- NOTE | 2020-11-11 18:09 | PCM.EKG ---
#1 Interpretation EKG Date: 11/11/20 Time: 18:09 EKG Interpretation Comments: Sinus tachycardia with rate of 100 minimally tall T waves anteriorly ST elevation in V1 less than 1 mm no reciprocal changes not felt to be consistent with acute ischemia QTC 454 QRS duration normal at 80.
[2020-11-11 18:13] LABS: CARBON DIOXIDE,CO2 21.2 mmol/L (21.0-32.0); POTASSIUM,K 4.1 mmol/L (3.5-5.1)
[2020-11-11] MEDS ORDERED: Haloperidol Lactate 5 MG/ML SDV IM ONE (18:55)
[2020-11-11] MEDS ORDERED: diphenhydrAMINE 50 MG/ML SDV IVPUSH ONE (18:56)
--- NOTE | 2020-11-11 19:04 | CR ---
INDICATION: Pain throwing up blood TECHNIQUE: Single view chest. FINDINGS: The lungs are clear. The heart, mediastinum and pulmonary vessels are of normal size. There is no evidence of pleural disease. IMPRESSION: Negative chest. Dictated by Brigida Denson MD @ Nov 11 2020 6:53PM Signed by Dr. Brigida Denson @ Nov 11 2020 7:03PM
[2020-11-11] MEDS ORDERED: Hydrochlorothiazide 25 MG Tab PO ONE (20:15)
[2020-11-11] MEDS ORDERED: hydrALAZINE 25 MG Tab PO STA (20:16)
[2020-11-11] MEDS ORDERED: amLODIPine 5 MG Tab PO ONE (20:16)
[2020-11-11 21:30] VITALS: BP 169/104; PULSE 92
--- NOTE | 2020-11-11 21:31 | EDM.PDOC ---
ED HPI GENERAL MEDICAL PROBLEM - General Chief Complaint: Gastrointestinal Problem Stated Complaint: EMS Time Seen by Provider: 11/11/20 17:30 Source of Information: Reports: Patient, EMS History Limitations: Reports: No Limitations - History of Present Illness INITIAL COMMENTS - FREE TEXT/NARRATIVE: HISTORY AND PHYSICAL: History of present illness: Patient is a 35-year-old male presents emergency room today via EMS with concern of vomiting and abdominal pain. Patient has a health history of uncontrolled diabetes, gastroparesis, prior history of GI bleed, chronic kidney disease. Patient states just before coming to the emergency room, he began having abdominal pain in his left-sided upper quadrant. He describes as a burning sensation but denies any blood in his stools. He states that the pain makes him nauseous and vomiting. Patient states he has had a very small amount of dark vomit but denies pasquale hematemesis or hemoptysis.. He has not taken his medications today according to patient and has not taken anything for his symptoms. States he did get a fistula placed in his left AC for dialysis. Patient denies fever, chills, chest pain, shortness of breath, or cough. Denies headache, neck stiff ness, change in vision, syncope, or near syncope. Denies diarrhea, constipation, or dysuria. Has not noted any blood in urine or stool. Patient has been eating and drinking appropriately prior to onset of symptoms. Review of systems: As per history of present illness and below otherwise all systems reviewed and negative. Past medical history: As per history of present illness and as reviewed below otherwise noncontributory. Surgical history: As per history of present illness and as reviewed below otherwise noncontributory. Social history: See social history for further information Family history: As per history of present illness and as reviewed below otherwise noncontributory. Physical exam: General: Patient is alert, oriented, and in no acute distress. Patient laying on exam table, holding abdomen. Mildly tachycardic 105s and hypertensive 232/104 on exam. Otherwise, vitally stable. HEENT: Atraumatic, normocephalic, pupils equal and reactive bilaterally, negative for conjunctival pallor or scleral icterus, mucous membranes moist, TMs normal bilaterally, throat clear, neck supple, nontender, trachea midline. No drooling or trismus noted. No meningeal signs. No hot potato voice noted. Lungs: Clear to auscultation, breath sounds equal bilaterally, chest nontender. Heart: S1S2, regular rate and rhythm without overt murmur Abdomen: Soft, nondistended, generalized tenderness without guarding, negative mendez/rebound. Negative for masses or hepatosplenomegaly. Negative for costovertebral tenderness. Pelvis: Stable nontender. Genitourinary: Deferred. Rectal: Deferred. Skin: Intact, warm, dry. No lesions or rashes noted. Extremities: Atraumatic, negative for cords or calf pain. Neurovascular unremarkable. Neuro: Awake, alert, oriented. Cranial nerves II through XII unremarkable. Cerebellum unremarkable. Motor and sensory unremarkable throughout. Exam nonfocal. Notes: Dr. South verbally involved in patient care. Upon arrival to the ED, patient is not actively vomiting at this time. He complains of acute exacerbation of his chronic abdominal pain with associated vomiting, he states his vomitus is darker in color but not pasquale blood but thinks the dark color is related to blood. He is found to be hypertensive and mildly tachycardic on exam. At this time, will obtain labwork, CXR, point of care glucose 110 via reported EMS. He states he has not taken his home medication today; including his blood pressure medications. Will provide patient with Haldol and Benadryl for pain. Patient requests Dilaudid by name stating that Haldol and Benadryl "wont properly treat" his pain. Discussed trial of Haldol and Benadryl and reevaluate his pain. CBC shows patients hgb to be 9.4 which is around his baseline / stable from prior lab evaluations. CMP shows elevated BUN and Creatinine which is also around patients baseline. Blood ketones negative. Patient does not have any further episodes of vomiting today in the emergency room. After therapeutics given, he is sleeping comfortably on exam table. He is able to tolerate PO intake and was given his home blood pressure medications. BP 169/104 and HR 90s and vitally stable. At this time, he is stable for discharge and has no further questions. Signs and symptoms that would prompt return to the ED thoroughly discussed with patient. Discussed the importance for follow up with his primary care provider. Diagnostics: EKG, CBC, CMP, UA, CXR, Trop, Ketone, lactate, VBG, blood type/screen, PT/INR, PTT, bedside glucose Therapeutics: NS, Zofran, Haldol, Benadryl Prescription: None Impression: Acute on chronic abdominal pain; likely secondary to gastroparesis Vomiting, resolved Hypertension Medication non compliance Chronic kidney disease, stable Microcytic anemia, stable Plan: 1. Encourage small but frequent sips of fluid to prevent dehydration. 2. Follow-up with your primary care provider as discussed. Return to the ED as needed and as discussed. 3. Take your At Home medications as prescribed to you. Definitive disposition and diagnosis as appropriate pending reevaluation and review of above. Abdomen Pain Score (Numeric/FACES): 8 - Related Data Allergies Allergy/AdvReac Type Severity Reaction Status Date / Time shrimp Allergy Severe Swelling Verified 11/13/20 09:23 iodine Allergy Unknown Anaphylactic Verified 11/13/20 09:23 Shock Penicillins Allergy Unknown Anaphylactic Verified 11/13/20 09:23 Shock shellfish derived Allergy Anaphylactic Verified 11/13/20 09:23 Shock gluten Allergy Severe Muscle Uncoded 11/13/20 09:23 Aches Home Meds: Home Meds Doxazosin [Cardura] 8 mg PO BEDTIME 09/29/19 [History] Metoprolol Succinate 200 mg PO DAILY 09/29/19 [History] atorvaSTATin [Lipitor] 80 mg PO BEDTIME 09/29/19 [History] Insulin Aspart [NovoLOG] 0 unit SUBCUT .UP TO 60 UN DAILY 09/30/19 [History] Metoclopramide [Reglan] 5 mg PO TIDAC #90 tablet 10/10/19 [Rx] Aspirin [Adult Low Dose Aspirin EC] 81 mg PO DAILY 12/07/19 [History] Enalapril Maleate 20 mg PO DAILY 12/07/19 [History] Insulin Glarg,Human.Rec.Analog [Lantus] 15 mg SUBCUT BEDTIME 12/07/19 [History] Iron Ag,Ps/C/Fa6/B12/Zn/SA/Sto [Niferex Tablet] 150 mg PO BID 12/07/19 [History] amLODIPine Besylate [Amlodipine Besylate] 10 mg PO DAILY 12/07/19 [History] hydroCHLOROthiazide [Hydrochlorothiazide] 25 mg PO DAILY 12/07/19 [History] hydrALAZINE [Apresoline] 50 mg PO Q8H #60 tablet 10/31/20 [Rx] Furosemide 40 mg PO DAILY 10/30/20 [History] Insulin Aspart [NovoLOG] ASDIRECTED 10/30/20 [History] Ondansetron [Zofran ODT] 4 mg PO Q8H PRN 10/30/20 [History] Pantoprazole Sodium [Protonix] 40 mg PO BID 10/30/20 [History] diphenhydrAMINE [Benadryl] 50 mg PO BEDTIME PRN 10/30/20 [History] Sulfamethoxazole/Trimethoprim [Bactrim 400-80 MG] 1 each PO BID 7 Days #14 tablet 11/13/20 [Rx] Past Medical History - Past Health History Medical/Surgical History: Denies Medical/Surgical History HEENT History: Reports: Impaired Vision Other HEENT History: blind right eye Cardiovascular History: Reports: Hypertension Respiratory History: Reports: None Gastrointestinal History: Reports: Gastritis, GERD, Hiatal Hernia, Other (See Below) Other Gastrointestinal History: h/o gastric ulcers, h/o hiatal hernia; gastroparesis Genitourinary History: Reports: Chronic Renal Insuffiency, Diabetic Nephropathy Musculoskeletal History: Reports: Amputation Other Musculoskeletal History: RLE Neurological History: Reports: Neuropathy, Peripheral Other Neuro History: stroke Psychiatric History: Reports: Anxiety Endocrine/Metabolic History: Reports: Diabetes, Type I Other Endocrine/Metabolic History: brittle diabetic. History of hyperkalemia and DKA Insulin Pump Model and Tool Dresser: None Hematologic History: Reports: Anemia Immunologic History: Reports: None Oncologic (Cancer) History: Reports: None Dermatologic History: Reports: Other (See Below) Other Dermatologic History: diabetic foot ulcers - Infectious Disease History Infectious Disease History: Reports: Chicken Pox, Novel Coronavirus Other Infectious Disease History: Covid-19 - Past Surgical History Head Surgeries/Procedures: Reports: None HEENT Surgical History: Reports: None Cardiovascular Surgical History: Reports: None Respiratory Surgical History: Reports: None GI Surgical History: Reports: None Male Surgical History: Reports: None Endocrine Surgical History: Reports: None Neurological Surgical History: Reports: None Musculoskeletal Surgical History: Reports: Amputation Other Musculoskeletal Surgeries/Procedures:: right BKA Oncologic Surgical History: Reports: None Dermatological Surgical History: Reports: None Social & Family History - Family History Family Medical History: No Pertinent Family History Cardiac: Reports: High Cholesterol, Hypertension OBGYN: Reports: Neurological: Reports: None Psychiatric: Reports: Anxiety - Tobacco Use Tobacco Use Status *Q: Never Tobacco User - Caffeine Use Caffeine Use: Reports: None Other Caffeine Use: daily Caffeine Use Comment: patient is uncooperated - Recreational Drug Use Recreational Drug Use: Yes Recreational Drug Type: Reports: Marijuana/Hashish - Living Situation & Occupation Living situation: Reports: Single Occupation: Employed (Currently unemployed.) ED ROS GENERAL - Review of Systems Review Of Systems: Comprehensive ROS is negative, except as noted in HPI. ED EXAM, GENERAL - Physical Exam Exam: See Below (see dictation) Course - Vital Signs Last Recorded V/S: Last Vital Signs Temp 98.5 F 11/11/20 21:30 Pulse 92 11/11/20 21:30 Resp 18 11/11/20 21:30 BP 169/104 H 11/11/20 21:30 Pulse Ox 97 11/11/20 21:30 - Orders/Labs/Meds Labs: Laboratory Tests 11/11/20 11/11/20 11/11/20 Range/Units 17:45 17:45 17:45 WBC 8.98 (4.0-11.0) K/uL RBC 4.55 (4.50-5.90) M/uL Hgb 9.4 L (13.0-17.0) g/dL Hct 30.9 L (38.0-50.0) % MCV 67.9 L (80.0-98.0) fL MCH 20.7 L (27.0-32.0) pg MCHC 30.4 L (31.0-37.0) g/dL RDW Std Deviation 38.1 (28.0-62.0) fl RDW Coeff of Dania 16 H (11.0-15.0) % Plt Count 448 H (150-400) K/uL MPV 10.10 (7.40-12.00) fL Neut % (Auto) 72.7 (48.0-80.0) % Lymph % (Auto) 20.2 (16.0-40.0) % Cache % (Auto) 3.5 (0.0-15.0) % Eos % (Auto) 3.0 (0.0-7.0) % Baso % (Auto) 0.6 (0.0-1.5) % Neut # (Auto) 6.5 H (1.4-5.7) K/uL Lymph # (Auto) 1.8 (0.6-2.4) K/uL Cache # (Auto) 0.3 (0.0-0.8) K/uL Eos # (Auto) 0.3 (0.0-0.7) K/uL Baso # (Auto) 0.1 (0.0-0.1) K/uL Nucleated RBC % 0.0 /100WBC Nucleated RBCs # 0 K/uL INR 0.98 APTT 20.1 (18.6-31.3) SEC VBG pH (7.31-7.41) VBG pCO2 (35-45) mmHG VBG pO2 (30-40) mmHG VBG HCO3 (22-30) mEq/L VBG Total CO2 (41-51) mmol/L VBG Base Excess (-3.0-3.0) Lactate (0.20-2.00) mmol/L Sodium 142 (136-148) mmol/L Potassium 4.1 (3.5-5.1) mmol/L Chloride 107 (98-107) mmol/L Carbon Dioxide 21.2 (21.0-32.0) mmol/L BUN 46 H (7.0-18.0) mg/dL Creatinine 5.1 H (0.8-1.3) mg/dL Est Cr Clr Drug Dosing 20.41 mL/min Estimated GFR (MDRD) 15.8 ml/min Glucose 133 H (74-106) mg/dL Calcium 8.3 L (8.5-10.1) mg/dL Total Bilirubin 0.1 L (0.2-1.0) mg/dL AST 18 (15-37) IU/L ALT 21 (14-63) IU/L Alkaline Phosphatase 103 (46-116) U/L Total Protein 7.2 (6.4-8.2) g/dL Albumin 2.9 L (3.4-5.0) g/dL Globulin 4.3 H (2.6-4.0) g/dL Albumin/Globulin Ratio 0.7 L (0.9-1.6) Lipase 36 L (73-393) U/L Urine Color Urine Appearance Urine pH (5.0-8.0) Ur Specific Wilton (1.001-1.035) Urine Protein (NEGATIVE) mg/dL Urine Glucose (UA) (NEGATIVE) mg/dL Urine Ketones (NEGATIVE) mg/dL Urine Occult Blood (NEGATIVE) Urine Nitrite (NEGATIVE) Urine Bilirubin (NEGATIVE) Urine Urobilinogen (<2.0) EU/dL Ur Leukocyte Esterase (NEGATIVE) Urine RBC (0-2/HPF) Urine WBC (0-5/HPF) Ur Epithelial Cells (NONE-FEW) Urine Bacteria (NEGATIVE) Ketones (NEG) Blood Type Antibody Screen 11/11/20 11/11/20 11/11/20 Range/Units 17:45 17:45 17:45 WBC (4.0-11.0) K/uL RBC (4.50-5.90) M/uL Hgb (13.0-17.0) g/dL Hct (38.0-50.0) % MCV (80.0-98.0) fL MCH (27.0-32.0) pg MCHC (31.0-37.0) g/dL RDW Std Deviation (28.0-62.0) fl RDW Coeff of Dania (11.0-15.0) % Plt Count (150-400) K/uL MPV (7.40-12.00) fL Neut % (Auto) (48.0-80.0) % Lymph % (Auto) (16.0-40.0) % Cache % (Auto) (0.0-15.0) % Eos % (Auto) (0.0-7.0) % Baso % (Auto) (0.0-1.5) % Neut # (Auto) (1.4-5.7) K/uL Lymph # (Auto) (0.6-2.4) K/uL Cache # (Auto) (0.0-0.8) K/uL Eos # (Auto) (0.0-0.7) K/uL Baso # (Auto) (0.0-0.1) K/uL Nucleated RBC % /100WBC Nucleated RBCs # K/uL INR APTT (18.6-31.3) SEC VBG pH 7.34 (7.31-7.41) VBG pCO2 40 (35-45) mmHG VBG pO2 52 H (30-40) mmHG VBG HCO3 22 (22-30) mEq/L VBG Total CO2 21 L (41-51) mmol/L VBG Base Excess -3.8 L (-3.0-3.0) Lactate 1.6 (0.20-2.00) mmol/L Sodium (136-148) mmol/L Potassium (3.5-5.1) mmol/L Chloride (98-107) mmol/L Carbon Dioxide (21.0-32.0) mmol/L BUN (7.0-18.0) mg/dL Creatinine (0.8-1.3) mg/dL Est Cr Clr Drug Dosing mL/min Estimated GFR (MDRD) ml/min Glucose (74-106) mg/dL Calcium (8.5-10.1) mg/dL Total Bilirubin (0.2-1.0) mg/dL AST (15-37) IU/L ALT (14-63) IU/L Alkaline Phosphatase (46-116) U/L Total Protein (6.4-8.2) g/dL Albumin (3.4-5.0) g/dL Globulin (2.6-4.0) g/dL Albumin/Globulin Ratio (0.9-1.6) Lipase (73-393) U/L Urine Color Urine Appearance Urine pH (5.0-8.0) Ur Specific Wil[place] (1.001-1.035) Urine Protein (NEGATIVE) mg/dL Urine Glucose (UA) (NEGATIVE) mg/dL Urine Ketones (NEGATIVE) mg/dL Urine Occult Blood (NEGATIVE) Urine Nitrite (NEGATIVE) Urine Bilirubin (NEGATIVE) Urine Urobilinogen (<2.0) EU/dL Ur Leukocyte Esterase (NEGATIVE) Urine RBC (0-2/HPF) Urine WBC (0-5/HPF) Ur Epithelial Cells (NONE-FEW) Urine Bacteria (NEGATIVE) Ketones NEGATIVE (NEG) Blood Type Antibody Screen 11/11/20 11/11/20 Range/Units 18:25 20:36 WBC (4.0-11.0) K/uL RBC (4.50-5.90) M/uL Hgb (13.0-17.0) g/dL Hct (38.0-50.0) % MCV (80.0-98.0) fL MCH (27.0-32.0) pg MCHC (31.0-37.0) g/dL RDW Std Deviation (28.0-62.0) fl RDW Coeff of Dania (11.0-15.0) % Plt Count (150-400) K/uL MPV (7.40-12.00) fL Neut % (Auto) (48.0-80.0) % Lymph % (Auto) (16.0-40.0) % Cache % (Auto) (0.0-15.0) % Eos % (Auto) (0.0-7.0) % Baso % (Auto) (0.0-1.5) % Neut # (Auto) (1.4-5.7) K/uL Lymph # (Auto) (0.6-2.4) K/uL Cache # (Auto) (0.0-0.8) K/uL Eos # (Auto) (0.0-0.7) K/uL Baso # (Auto) (0.0-0.1) K/uL Nucleated RBC % /100WBC Nucleated RBCs # K/uL INR APTT (18.6-31.3) SEC VBG pH (7.31-7.41) VBG pCO2 (35-45) mmHG VBG pO2 (30-40) mmHG VBG HCO3 (22-30) mEq/L VBG Total CO2 (41-51) mmol/L VBG Base Excess (-3.0-3.0) Lactate (0.20-2.00) mmol/L Sodium (136-148) mmol/L Potassium (3.5-5.1) mmol/L Chloride (98-107) mmol/L Carbon Dioxide (21.0-32.0) mmol/L BUN (7.0-18.0) mg/dL Creatinine (0.8-1.3) mg/dL Est Cr Clr Drug Dosing mL/min Estimated GFR (MDRD) ml/min Glucose (74-106) mg/dL Calcium (8.5-10.1) mg/dL Total Bilirubin (0.2-1.0) mg/dL AST (15-37) IU/L ALT (14-63) IU/L Alkaline Phosphatase (46-116) U/L Total Protein (6.4-8.2) g/dL Albumin (3.4-5.0) g/dL Globulin (2.6-4.0) g/dL Albumin/Globulin Ratio (0.9-1.6) Lipase (73-393) U/L Urine Color YELLOW Urine Appearance CLEAR Urine pH 6.0 (5.0-8.0) Ur Specific Wil[place] 1.020 (1.001-1.035) Urine Protein >=300 H (NEGATIVE) mg/dL Urine Glucose (UA) 100 H (NEGATIVE) mg/dL Urine Ketones NEGATIVE (NEGATIVE) mg/dL Urine Occult Blood SMALL H (NEGATIVE) Urine Nitrite NEGATIVE (NEGATIVE) Urine Bilirubin NEGATIVE (NEGATIVE) Urine Urobilinogen 0.2 (<2.0) EU/dL Ur Leukocyte Esterase NEGATIVE (NEGATIVE) Urine RBC 0-3 (0-2/HPF) Urine WBC 0-2 (0-5/HPF) Ur Epithelial Cells RARE (NONE-FEW) Urine Bacteria RARE (NEGATIVE) Ketones (NEG) Blood Type O POSITIVE Antibody Screen NEGATIVE Meds: Medications Discontinued Medications Generic Name Dose Route Start Last Admin Trade Name Freq PRN Reason Stop Dose Admin Amlodipine Besylate 10 mg 11/11/20 20:16 11/11/20 20:24 Norvasc PO 11/11/20 20:17 10 mg ONETIME ONE Administration Diphenhydramine HCl 50 mg 11/11/20 18:56 11/11/20 19:07 Benadryl IVPUSH 11/11/20 18:57 50 mg ONETIME ONE Administration Enalapril Maleate 20 mg 11/11/20 20:17 11/11/20 20:33 Vasotec PO 11/11/20 20:18 20 mg ONETIME ONE Administration Haloperidol Lactate 5 mg 11/11/20 18:55 11/11/20 19:07 Haldol IM 11/11/20 18:56 5 mg ONETIME ONE Administration Hydralazine HCl 50 mg 11/11/20 20:16 11/11/20 20:33 Apresoline PO 11/11/20 20:17 50 mg NOW STA Administration Hydrochlorothiazide 25 mg 11/11/20 20:15 11/11/20 20:24 Hydrochlorothiazide PO 11/11/20 20:16 25 mg ONETIME ONE Administration Sodium Chloride 1,000 mls @ 999 mls/hr 11/11/20 17:33 11/11/20 18:02 Normal Saline IV 11/11/20 18:33 999 mls/hr STAT ONE Administration Pantoprazole Sodium 80 mg/ 20 mls @ 420 mls/hr 11/11/20 17:33 11/11/20 17:56 Sodium Chloride IVPUSH 11/11/20 17:35 420 mls/hr ONETIME ONE Administration Pantoprazole Sodium 80 mg/ 100 mls @ 10 mls/hr 11/11/20 17:45 11/11/20 18:59 Sodium Chloride IV 10 mls/hr .Continuous MICHAEL Administration Ondansetron HCl 4 mg 11/11/20 17:32 11/11/20 17:53 Zofran IVPUSH 11/11/20 17:33 4 mg ONETIME ONE Administration Sodium Chloride 10 ml 11/11/20 17:32 11/11/20 18:05 Saline Flush FLUSH 10 ml ASDIRECTED PRN Administration Keep Vein Open Sodium Chloride 2.5 ml 11/11/20 17:32 11/11/20 18:05 Saline Flush FLUSH 2.5 ml ASDIRECTED PRN Administration Keep Vein Open Departure - Departure Time of Disposition: 21:30 Disposition: Home, Self-Care 01 Clinical Impression: Medical non-compliance, Poorly-controlled hypertension Hypertension Qualifiers: Hypertension type: essential hypertension Qualified Code(s): I10 - Essential (primary) hypertension Chronic kidney disease (CKD) Qualifiers: Chronic kidney disease stage: unspecified stage Qualified Code(s): N18.9 - Chronic kidney disease, unspecified Vomiting Qualifiers: Vomiting type: unspecified Vomiting Intractability: non-intractable Nausea presence: with nausea Qualified Code(s): R11.2 - Nausea with vomiting, unspecified Abdominal pain Qualifiers: Abdominal location: generalized Qualified Code(s): R10.84 - Generalized abdominal pain - Discharge Information Instructions: Nausea and Vomiting, Adult, [id number] Referrals: PCP,None [Primary Care Provider] - Forms: ED Department Discharge Additional Instructions: The following information is given to patients seen in the emergency department who are being discharged to home. This information is to outline your options for follow-up care. We provide all patients seen in our emergency department with a follow-up referral. The need for follow-up, as well as the timing and circumstances, are variable depending upon the specifics of your emergency department visit. If you don't have a primary care physician on staff, we will provide you with a referral. We always advise you to contact your personal physician following an emergency department visit to inform them of the circumstance of the visit and for follow-up with them and/or the need for any referrals to a consulting specialist. The emergency department will also refer you to a specialist when appropriate. This referral assures that you have the opportunity for follow-up care with a specialist. All of these measure are taken in an effort to provide you with optimal care, which includes your follow-up. Under all circumstances we always encourage you to contact your private physician who remains a resource for coordinating your care. When calling for follow-up care, please make the office aware that this follow-up is from your recent emergency room visit. If for any reason you are refused follow-up, please contact the [facility] Emergency Department at and asked to speak to the emergency department charge nurse. [facility] [address] [place] [id number] [facility] [address] [place] [id number] 1. Encourage small but frequent sips of fluid to prevent dehydration. 2. Follow-up with your primary care provider as discussed. Return to the ED as needed and as discussed. 3. Take your At Home medications as prescribed to you. Sepsis Event Note (ED) - Evaluation Sepsis Screening Result: No Definite Risk
== END 2020-11-11 21:45 | disposition home or self-care (01) ==
LOC: MW.ED 17:29
DX: R10.84 Generalized abdominal pain (principal); R11.2 Nausea with vomiting, unspecified; I12.9 Hypertensive chronic kidney disease with stage 1 through stage 4 chronic kidney disease, or unspecified chronic kidney disease; N18.9 Chronic kidney disease, unspecified; K21.9 Gastro-esophageal reflux disease without esophagitis; E10.42 Type 1 diabetes mellitus with diabetic polyneuropathy; E10.22 Type 1 diabetes mellitus with diabetic chronic kidney disease; E10.21 Type 1 diabetes mellitus with diabetic nephropathy; D50.9 Iron deficiency anemia, unspecified; Z91.14 Patient's other noncompliance with medication regimen; Z91.013 Allergy to seafood; Z91.048 Other nonmedicinal substance allergy status; Z88.0 Allergy status to penicillin; Z79.82 Long term (current) use of aspirin
CPT/HCPCS: 36415; 71045; 80053; 81001; 82009; 82803; 83605; 83690; 85025; 85610; 85730; 86850; 86900; 86901; 93005; 96365; 96366; 96372; 96375; 99285; A9270; C9113; J1200; J1630; J2405; J7030

== ENCOUNTER 2020-11-13 09:08 | Emergency (ER) | payer MEDICARE, MEDICAID ==
--- NOTE | 2020-11-13 09:27 | EDM.PDOC ---
ED HPI GENERAL MEDICAL PROBLEM - General Chief Complaint: Skin Complaint Stated Complaint: INFECTION ON LT ARM Time Seen by Provider: 11/13/20 09:12 - History of Present Illness INITIAL COMMENTS - FREE TEXT/NARRATIVE: 35-year-old male with history of renal insufficiency secondary to type 1 diabetes who had a left upper extremity fistula placed in [place] 1 week ago but who is not currently on hemodialysis who is presenting from primary care clinic with discomfort at the left wrist surgical site. Patient states that they told him not to cover this area and he wonders if that may have led to the infection. He has no fevers he otherwise feels well. He states that ever since they did the nerve block for his left upper extremity he has had some discomfort in his left axilla that radiates down into his left arm but states that it is "not too bad." He denies fevers and says that otherwise he feels relatively well. He does have an allergy to penicillin. No drainage from the wound. He reports some discomfort to the area but denies any radiation or other symptoms. Patient has not currently started dialysis. - Related Data Allergies Allergy/AdvReac Type Severity Reaction Status Date / Time shrimp Allergy Severe Swelling Verified 11/13/20 09:23 iodine Allergy Unknown Anaphylactic Verified 11/13/20 09:23 Shock Penicillins Allergy Unknown Anaphylactic Verified 11/13/20 09:23 Shock shellfish derived Allergy Anaphylactic Verified 11/13/20 09:23 Shock gluten Allergy Severe Muscle Uncoded 11/13/20 09:23 Aches Home Meds: Home Meds Doxazosin [Cardura] 8 mg PO BEDTIME 09/29/19 [History] Metoprolol Succinate 200 mg PO DAILY 09/29/19 [History] atorvaSTATin [Lipitor] 80 mg PO BEDTIME 09/29/19 [History] Insulin Aspart [NovoLOG] 0 unit SUBCUT .UP TO 60 UN DAILY 09/30/19 [History] Metoclopramide [Reglan] 5 mg PO TIDAC #90 tablet 10/10/19 [Rx] Aspirin [Adult Low Dose Aspirin EC] 81 mg PO DAILY 12/07/19 [History] Enalapril Maleate 20 mg PO DAILY 12/07/19 [History] Insulin Glarg,Human.Rec.Analog [Lantus] 15 mg SUBCUT BEDTIME 12/07/19 [History] Iron Ag,Ps/C/Fa6/B12/Zn/SA/Sto [Niferex Tablet] 150 mg PO BID 12/07/19 [History] amLODIPine Besylate [Amlodipine Besylate] 10 mg PO DAILY 12/07/19 [History] hydroCHLOROthiazide [Hydrochlorothiazide] 25 mg PO DAILY 12/07/19 [History] hydrALAZINE [Apresoline] 50 mg PO Q8H #60 tablet 07/14/20 [Rx] Furosemide 40 mg PO DAILY 10/30/20 [History] Insulin Aspart [NovoLOG] ASDIRECTED 10/30/20 [History] Ondansetron [Zofran ODT] 4 mg PO Q8H PRN 10/30/20 [History] Pantoprazole Sodium [Protonix] 40 mg PO BID 10/30/20 [History] diphenhydrAMINE [Benadryl] 50 mg PO BEDTIME PRN 10/30/20 [History] Sulfamethoxazole/Trimethoprim [Bactrim 400-80 MG] 1 each PO BID 7 Days #14 ta blet 11/13/20 [Rx] Past Medical History - Past Health History Medical/Surgical History: Denies Medical/Surgical History HEENT History: Reports: Impaired Vision Other HEENT History: blind right eye Cardiovascular History: Reports: Hypertension Respiratory History: Reports: None Gastrointestinal History: Reports: Gastritis, GERD, Hiatal Hernia, Other (See Below) Other Gastrointestinal History: h/o gastric ulcers, h/o hiatal hernia; gastroparesis Genitourinary History: Reports: Chronic Renal Insuffiency, Diabetic Nephropathy Musculoskeletal History: Reports: Amputation Other Musculoskeletal History: RLE Neurological History: Reports: Neuropathy, Peripheral Other Neuro History: stroke Psychiatric History: Reports: Anxiety Endocrine/Metabolic History: Reports: Diabetes, Type I Other Endocrine/Metabolic History: brittle diabetic. History of hyperkalemia and DKA Insulin Pump Model and Senior [employer] Developer: None Hematologic History: Reports: Anemia Immunologic History: Reports: None Oncologic (Cancer) History: Reports: None Dermatologic History: Reports: Other (See Below) Other Dermatologic History: diabetic foot ulcers - Infectious Disease History Infectious Disease History: Reports: Chicken Pox, Novel Coronavirus Other Infectious Disease History: Covid-19 - Past Surgical History Head Surgeries/Procedures: Reports: None HEENT Surgical History: Reports: None Cardiovascular Surgical History: Reports: None Respiratory Surgical History: Reports: None GI Surgical History: Reports: None Male Surgical History: Reports: None Endocrine Surgical History: Reports: None Neurological Surgical History: Reports: None Musculoskeletal Surgical History: Reports: Amputation Other Musculoskeletal Surgeries/Procedures:: right BKA Oncologic Surgical History: Reports: None Dermatological Surgical History: Reports: None Social & Family History - Family History Family Medical History: No Pertinent Family History Cardiac: Reports: High Cholesterol, Hypertension OBGYN: Reports: Neurological: Reports: None Psychiatric: Reports: Anxiety - Caffeine Use Caffeine Use: Reports: None Other Caffeine Use: daily Caffeine Use Comment: patient is uncooperated - Living Situation & Occupation Living situation: Reports: Single Occupation: Employed (Currently unemployed.) ED ROS GENERAL - Review of Systems Review Of Systems: See Below Free Text/Narrative/Comment: General: No fever. Skin: Per HPI Eyes: No vision problems. ENT: No sore throat. Neck: No neck stiffness. Respiratory: No shortness of breath. Cardiac: No chest pain. Gastrointestinal: Patient with a history of chronic abdominal pain he has very minimal pain at this time. Musculoskeletal: No myalgias/arthralgias. Neurologic: No headache. ED EXAM, SKIN/RASH Exam: See Below Text/Narrative:: General Appearance: No acute distress, appears comfortable Skin: There is a 1.5 cm area of his left wrist incision that has some minimal dehiscence with a maximal gap of approximately 1 to 2 mm. There is some very faint surrounding erythema on the wound there is no active drainage and no expressible purulence there is no lymphangitic streaking the left hand is neurovascularly intact with good consular officer strength. HEENT: Normocephalic/atraumatic, sclera anicteric, mucous membranes moist Neck: Normal range of motion Musculoskeletal: No edema or tenderness Neurologic: Awake, alert, no obvious deficits, moving all extremities Psychiatric: Appropriate, cooperative Course - Vital Signs Last Recorded V/S: Last Vital Signs Temp 98.4 F 11/13/20 09:20 Pulse 91 11/13/20 09:20 Resp 16 11/13/20 09:20 BP 168/101 H 11/13/20 09:20 Pulse Ox 95 11/13/20 09:20 - Orders/Labs/Meds Labs: Laboratory Tests 11/13/20 11/13/20 Range/Units 09:30 09:30 WBC 6.40 (4.0-11.0) K/uL RBC 3.77 L (4.50-5.90) M/uL Hgb 8.1 L (13.0-17.0) g/dL Hct 25.8 L (38.0-50.0) % MCV 68.4 L (80.0-98.0) fL MCH 21.5 L (27.0-32.0) pg MCHC 31.4 (31.0-37.0) g/dL RDW Std Deviation 38.7 (28.0-62.0) fl RDW Coeff of Dania 16 H (11.0-15.0) % Plt Count 376 (150-400) K/uL MPV 10.30 (7.40-12.00) fL Neut % (Auto) 56.0 (48.0-80.0) % Lymph % (Auto) 29.1 (16.0-40.0) % [place] % (Auto) 7.7 (0.0-15.0) % Eos % (Auto) 6.4 (0.0-7.0) % Baso % (Auto) 0.8 (0.0-1.5) % Neut # (Auto) 3.6 (1.4-5.7) K/uL Lymph # (Auto) 1.9 (0.6-2.4) K/uL [place] # (Auto) 0.5 (0.0-0.8) K/uL Eos # (Auto) 0.4 (0.0-0.7) K/uL Baso # (Auto) 0.1 (0.0-0.1) K/uL Nucleated RBC % 0.0 /100WBC Nucleated RBCs # 0 K/uL Sodium 140 (136-148) mmol/L Potassium 4.6 (3.5-5.1) mmol/L Chloride 108 H (98-107) mmol/L Carbon Dioxide 23.5 (21.0-32.0) mmol/L BUN 40 H (7.0-18.0) mg/dL Creatinine 5.4 H (0.8-1.3) mg/dL Est Cr Clr Drug Dosing 19.28 mL/min Estimated GFR (MDRD) 14.8 ml/min Glucose 216 H (74-106) mg/dL Calcium 7.5 L (8.5-10.1) mg/dL Departure - Departure Time of Disposition: 10:08 Disposition: Home, Self-Care 01 Condition: Good Clinical Impression: Encounter for evaluation of wound - Discharge Information *PRESCRIPTION DRUG MONITORING PROGRAM REVIEWED*: Not Applicable *COPY OF PRESCRIPTION DRUG MONITORING REPORT IN PATIENT IVELISSE: Not Applicable Prescriptions: Sulfamethoxazole/Trimethoprim [Bactrim 400-80 MG] 1 each PO BID 7 Days #14 tablet Instructions: Wound Care, Adult Referrals: Fitz Infante MD [Primary Care Provider] - Forms: ED Department Discharge Additional Instructions: Please be sure to continue to keep the wound clean and keep it primarily uncovered so that it heals well. If you are doing an activity that risks of getting the wound dirty then please temporarily cover the wound. You have been placed on 7 days of Bactrim. If you have worsening opening of the wound worsening redness or spreading redness up your arm please return to the ER. Otherwise please follow-up with your primary care doctor in 7 to 10 days and continue to follow-up with your doctors in [place] as previously instructed. The following information is given to patients seen in the emergency department who are being discharged to home. This information is to outline your options for follow-up care. We provide all patients seen in our emergency department with a follow-up referral. The need for follow-up, as well as the timing and circumstances, are variable depending upon the specifics of your emergency department visit. If you don't have a primary care physician on staff, we will provide you with a referral. We always advise you to contact your personal physician following an emergency department visit to inform them of the circumstance of the visit and for follow-up with them and/or the need for any referrals to a consulting specialist. The emergency department will also refer you to a specialist when appropriate. This referral assures that you have the opportunity for follow-up care with a specialist. All of these measure are taken in an effort to provide you with optimal care, which includes your follow-up. Under all circumstances we always encourage you to contact your private physician who remains a resource for coordinating your care. When calling for follow-up care, please make the office aware that this follow-up is from your recent emergency room visit. If for any reason you are refused follow-up, please contact the [facility] Emergency Department at and asked to speak to the emergency department charge nurse. Sepsis Event Note (ED) - Evaluation Sepsis Screening Result: No Definite Risk - Focused Exam Vital Signs: Vital Signs Temp Pulse Resp BP Pulse Ox 11/13/20 09:20 98.4 F 91 16 168/101 H 95 - Assessment/Plan Assessment:: 35-year-old male presents with signs of a surgical site infection. Basic labs ordered to assess renal function and electrolytes as well as for any leukocytosis. Will discuss with general surgery here regarding management with oral antibiotics versus admission for IV antibiotics versus transfer. 0955: Labs with stable renal insufficiency, his baseline anemia is slightly worse but above transfusion threshold. WBC is normal. Will discuss with general surgery. 1005: Patient was evaluated by Dr. Sanz the general surgeon at bedside along with myself. The wound looks good to him. And I agree as mentioned there is no lymphangitic streaking there is no large area of surrounding redness there is no active drainage. Given the patient's type [address] the patient on 7 days of Bactrim. Patient will continue to keep it clean and uncovered and it is recommended for him to follow-up with his primary care doctor in 7 days. Worsening redness worsening opening of the wound or fevers and the patient will return. Plan of care discussed with and understood by the patient Bactrim dose adjusted to 1 double strength tablet in the ED followed by 1 single strength tablet every 12 hours given the patient's current creatinine clearance of 20.
[2020-11-13 09:52] LABS: CARBON DIOXIDE,CO2 23.5 mmol/L (21.0-32.0); POTASSIUM,K 4.6 mmol/L (3.5-5.1)
[2020-11-13] MEDS ORDERED: Sulfamethoxazole/Trimethoprim 800-160 MG Tab PO ONE (10:13)
[2020-11-13 10:33] VITALS: BP 182/104; PULSE 88
== END 2020-11-13 10:27 | disposition home or self-care (01) ==
LOC: MW.ED 09:08
DX: T81.31XA Disruption of external operation (surgical) wound, not elsewhere classified, initial encounter (principal); K21.9 Gastro-esophageal reflux disease without esophagitis; I12.9 Hypertensive chronic kidney disease with stage 1 through stage 4 chronic kidney disease, or unspecified chronic kidney disease; N18.9 Chronic kidney disease, unspecified; E10.42 Type 1 diabetes mellitus with diabetic polyneuropathy; E10.22 Type 1 diabetes mellitus with diabetic chronic kidney disease; Z79.899 Other long term (current) drug therapy; Z91.013 Allergy to seafood; Z91.048 Other nonmedicinal substance allergy status; Z88.0 Allergy status to penicillin; E10.21 Type 1 diabetes mellitus with diabetic nephropathy
CPT/HCPCS: 36415; 80048; 85025; 87070; 99283; A9270

== ENCOUNTER 2020-11-16 17:31 | Emergency (ER) | payer MEDICARE, MEDICAID ==
[2020-11-16] MEDS ORDERED: Sodium Chloride 0.9% 2.5 ML Syringe FLUSH PRN (17:36)
[2020-11-16] MEDS ORDERED: Famotidine 20 MG/2 ML SDV IVPUSH ONE (17:36)
[2020-11-16] MEDS ORDERED: Pantoprazole 40 MG in Sodium Chloride 0.9% 10 ML IV ONE ×2 (17:36→23:22)
[2020-11-16] MEDS ORDERED: Sodium Chloride 0.9% 10 ML Syringe FLUSH PRN (17:36)
[2020-11-16] MEDS ORDERED: Lactated Ringers 1,000 ML IV ONE (17:36)
[2020-11-16] MEDS ORDERED: Ondansetron 4 MG/2 ML SDV IVPUSH ONE (17:36)
[2020-11-16] MEDS ORDERED: HYDROmorphone 1 MG/ML Syringe IVPUSH ONE (18:09)
[2020-11-16] MEDS ORDERED: Haloperidol Lactate 5 MG/ML SDV IM ONE (18:11)
--- NOTE | 2020-11-16 18:17 | EDM.PDOC ---
<Isaias Cartagena - Last Filed: 11/16/20 19:01> ED HPI GENERAL MEDICAL PROBLEM - General Chief Complaint: Gastrointestinal Problem Stated Complaint: ABDOMINAL PAIN Time Seen by Provider: 11/16/20 17:32 Source of Information: Reports: Patient History Limitations: Reports: No Limitations - History of Present Illness INITIAL COMMENTS - FREE TEXT/NARRATIVE: 35-year-old male was brought in by ambulance for hematemesis since last night. He noted 6 episodes of dark red vomitus since yesterday. Associated with substernal sharp pain, nonradiating, constant, moderate, exacerbated with vomiting, no alleviating factors. Patient denies fever, chills, headache, chest pain, shortness of breath, cough, diarrhea, rectal bleeding, focal numbness or weakness. ROS: A 10-point review of systems, other than pertinent positives and negatives as stated per HPI, is otherwise negative Past medical history: No additional pertinent history Past Surgical history: No additional pertinent history Social history: No additional pertinent history Family history: No additional pertinent history PHYSICAL EXAM General: AOx4, GCS = 15, moderate distress HEENT: dry mucous membrane Neck: supple, no meningismus, no Kernig or Brudzinski Cardiac: S1S2 RRR Respiratory: CTAB, no crackles or rales, no wheezing Abdomen: Soft, epigastric ttp, no rebound or guarding, nondistended, no pulsatile mass. Back: nontender Musculoskeletal: NVI distally, Left BKA Neuro: No focal deficits, CN 2 - 12 WNL. - Related Data Allergies Allergy/AdvReac Type Severity Reaction Status Date / Time shrimp Allergy Severe Swelling Verified 11/16/20 19:23 iodine Allergy Unknown Anaphylactic Verified 11/16/20 19:23 Shock Penicillins Allergy Unknown Anaphylactic Verified 11/16/20 19:23 Shock shellfish derived Allergy Anaphylactic Verified 11/16/20 19:23 Shock gluten Allergy Severe Muscle Uncoded 11/16/20 19:23 Aches Home Meds: Home Meds Doxazosin [Cardura] 8 mg PO BEDTIME 09/29/19 [History] Metoprolol Succinate 200 mg PO DAILY 09/29/19 [History] atorvaSTATin [Lipitor] 80 mg PO BEDTIME 09/29/19 [History] Insulin Aspart [NovoLOG] 0 unit SUBCUT .UP TO 60 UN DAILY 09/30/19 [History] Metoclopramide [Reglan] 5 mg PO TIDAC #90 tablet 10/10/19 [Rx] Aspirin [Adult Low Dose Aspirin EC] 81 mg PO DAILY 12/07/19 [History] Enalapril Maleate 20 mg PO DAILY 12/07/19 [History] Insulin Glarg,Human.Rec.Analog [Lantus] 15 mg SUBCUT BEDTIME 12/07/19 [History] Iron Ag,Ps/C/Fa6/B12/Zn/SA/Sto [Niferex Tablet] 150 mg PO BID 12/07/19 [History] amLODIPine Besylate [Amlodipine Besylate] 10 mg PO DAILY 12/07/19 [History] hydroCHLOROthiazide [Hydrochlorothiazide] 25 mg PO DAILY 12/07/19 [History] hydrALAZINE [Apresoline] 50 mg PO Q8H #60 tablet 07/14/20 [Rx] Furosemide 40 mg PO DAILY 10/30/20 [History] Insulin Aspart [NovoLOG] ASDIRECTED 10/30/20 [History] Ondansetron [Zofran ODT] 4 mg PO Q8H PRN 10/30/20 [History] Pantoprazole Sodium [Protonix] 40 mg PO BID 10/30/20 [History] diphenhydrAMINE [Benadryl] 50 mg PO BEDTIME PRN 10/30/20 [History] Sulfamethoxazole/Trimethoprim [Bactrim 400-80 MG] 1 each PO BID 7 Days #14 tablet 11/13/20 [Rx] Past Medical History - Past Health History Medical/Surgical History: Denies Medical/Surgical History HEENT History: Reports: Impaired Vision Other HEENT History: blind right eye Cardiovascular History: Reports: Hypertension Respiratory History: Reports: None Gastrointestinal History: Reports: Gastritis, GERD, Hiatal Hernia, Other (See Below) Other Gastrointestinal History: h/o gastric ulcers, h/o hiatal hernia; gastroparesis Genitourinary History: Reports: Chronic Renal Insuffiency, Diabetic Nephropathy Musculoskeletal History: Reports: Amputation Other Musculoskeletal History: RLE Neurological History: Reports: Neuropathy, Peripheral Other Neuro History: stroke Psychiatric History: Reports: Anxiety Endocrine/Metabolic History: Reports: Diabetes, Type I Other Endocrine/Metabolic History: brittle diabetic. History of hyperkalemia and DKA Insulin Pump Model and Potato Chip Maker: None Hematologic History: Reports: Anemia Immunologic History: Reports: None Oncologic (Cancer) History: Reports: None Dermatologic History: Reports: Other (See Below) Other Dermatologic History: diabetic foot ulcers - Infectious Disease History Infectious Disease History: Reports: Chicken Pox, Novel Coronavirus Other Infectious Disease History: Covid-19 - Past Surgical History Head Surgeries/Procedures: Reports: None HEENT Surgical History: Reports: None Cardiovascular Surgical History: Reports: None Respiratory Surgical History: Reports: None GI Surgical History: Reports: None Male Surgical History: Reports: None Endocrine Surgical History: Reports: None Neurological Surgical History: Reports: None Musculoskeletal Surgical History: Reports: Amputation Other Musculoskeletal Surgeries/Procedures:: right BKA Oncologic Surgical History: Reports: None Dermatological Surgical History: Reports: None Social & Family History - Family History Family Medical History: No Pertinent Family History Cardiac: Reports: High Cholesterol, Hypertension OBGYN: Reports: Neurological: Reports: None Psychiatric: Reports: Anxiety - Caffeine Use Caffeine Use: Reports: None Other Caffeine Use: daily Caffeine Use Comment: patient is uncooperated - Living Situation & Occupation Living situation: Reports: Single Occupation: Employed (Currently unemployed.) ED ROS GENERAL - Review of Systems Review Of Systems: See Below (see dictation) ED EXAM, GI/ABD - Physical Exam Exam: See Below (see dictation) #1 Interpretation EKG Interpretation Comments: Heart rate = [] bpm, normal sinus rhythm, normal QRS interval, no STEMI. EKG and rhythm strip interpreted by me at [ ] Course - Re-Assessments/Exams Free Text/Narrative Re-Assessment/Exam: 11/16/20 18:59 Case signed out to Dr. South for disposition. Departure - Departure Disposition: Against Medical Advice 07 Clinical Impression: Upper GI bleed - Discharge Information *PRESCRIPTION DRUG MONITORING PROGRAM REVIEWED*: Not Applicable *COPY OF PRESCRIPTION DRUG MONITORING REPORT IN PATIENT IVELISSE: Not Applicable Instructions: Gastrointestinal Bleeding, [id number] Referrals: Fitz Infante MD [Primary Care Provider] - 3 Days Forms: ED Department Discharge Additional Instructions: You were evaluated today on an emergent basis. At this time your blood levels have decreased from 9.9 down to 7.4 and you have been in the emergency department multiple times for vomiting blood. At this time it is concerning for an upper GI bleed as the cause of your blood loss in addition to your kidney function as a cause of your low blood count. Having an upper GI bleed can be life-threatening and given the decrease in your hemoglobin I did recommend transfer to [facility] in [place] for you could be evaluated by GI specialist in addition to a religion instructor. You did not want to be transfered and given that we have no GI specialists, Nephrologists, or available beds at our hospital, transfer at this time is our only option. I do continue to recommend transfer given your multiple emergency department visits and given that your last endoscopy was done in 2019. Please continue to take your home medications as prescribed and follow-up with general surgery and your primary care physician within 1 day. I do recommend that you return to the emergency department to complete your treatment. The patient was apprised of the potential risks of leaving the hospital AGAINST MEDICAL ADVICE. They include serious complications, permanent disability, and . At the time of my interview with the patient, the patient was alert, oriented, and capable. I urged the patient to return to the hospital as soon as possible to complete their evaluation and treatment. [facility] - General Surgery Professional Building [address] [place] [address], [address] [place] [address] [facility] - Primary [facility] [address] [place] [address] [place] [address] The patient is informed of any results of their evaluation and diagnostic workup and all questions are answered. They are given discharge instructions and return precautions. The patient is stable for discharge. The patient states they understand and agree with the plan and that they will return if their symptoms get worse or if they have any new concerns. The following information is given to patients seen in the emergency department who are being discharged to home. This information is to outline your options for follow-up care. We provide all patients seen in our emergency department with a follow-up referral. The need for follow-up, as well as the timing and circumstances, are variable depending upon the specifics of your emergency department visit. If you don't have a primary care physician on staff, we will provide you with a referral. We always advise you to contact your personal physician following an emergency department visit to inform them of the circumstance of the visit and for follow-up with them and/or the need for any referrals to a consulting specialist. The emergency department will also refer you to a specialist when appropriate. This referral assures that you have the opportunity for follow-up care with a specialist. All of these measure are taken in an effort to provide you with optimal care, which includes your follow-up. Under all circumstances we always encourage you to contact your private physician who remains a resource for coordinating your care. When calling for follow-up care, please make the office aware that this follow-up is from your recent emergency room visit. If for any reason you are refused follow-up, please contact the [facility] Emergency Department at and asked to speak to the emergency department charge nurse. <Matti South - Last Filed: 11/17/20 04:47> ED HPI GENERAL MEDICAL PROBLEM - History of Present Illness INITIAL COMMENTS - FREE TEXT/NARRATIVE: Patient was signed out to me by Dr. Cartagena pending labs and reevaluation at 7PM I did reevaluate the patient and the patient had not had any further episodes of vomiting. The patient was ambulating about his room. I did have a discussion about what brought him to the emergency department. He states that he has been having coffee-ground emesis since last night and noted some vomiting yesterday. He states that he has some sharp nonradiating pain in his chest was exacerbated by by his vomiting. He denies any blood in his stool but admits that he had not checked. Exam was unremarkable. LUE AV fisula with well hearing surgical incision with palpable thrill Laboratory: CBC reveals a microcytic anemia with a hemoglobin of 7.4, hematocrit of 22.9 and an MCV of 67 this is significantly decreased over the last 2 weeks from 9.9 down to 7.4. Coags are within normal limits. Lactic acid was 1.5. CMP reveals hyponatremia at 147, hypokalemia at 3.2, hyperchloremia at 115, metabolic acidosis 18.4, elevated BUN at 32 and creatinine of 4.2 with normal glycemia with a glucose of 97, hypophosphatemia 2.5, hypomagnesemia at 1.7, hypocalcemia 6.4, hypoalbuminemia 2.2. Lipase is normal. Troponin is negative. Imaging reviewed chest x-ray did not reveal any acute cardiopulmonary process. MDM: Mr. Duncan has a complex past medical history and has been evaluated in our em ergency department 6 times with admission for recurrent coffee-ground emesis. This patient has a history of uncontrolled diabetes mellitus, gastroparesis, CKD with resultant left AV fistula placement in preparation for hemodialysis, uncontrolled hypertension who presented today with coffee-ground emesis who has a significant decrease in his hemoglobin from prior with evidence of kidney dysfunction given the hyperchloremic metabolic acidosis, hypophosphatemia, protein calorie malnutrition, and a contribution likely to his anemia. I do believe the patient does require evaluation by GI and nephrology given his continued downtrending in his hemoglobin and his kidney function as evidenced by what was discussed above. The patient's last endoscopy was completed in [address] Sanz. I had already contacted [facility] in [place] who is amenable to transfer at this time for evaluation by GI. I did speak with Dr. Kemp. The GI specialist in [facility] in [place] was unable to be reached. He recommended that we provide the patient with 2 units of PRBCs. I did order these. I had a lengthy discussion with the patient regarding transfer. The patient refused transfer at this time stating that he did not have a ride home after he was discharged. He states that when he has been to [facility] in [place] prior he stated that GI did nothing and they would discharge him. I did discuss with him at this time that his anemia has significantly worsened and there is signs of electrolyte abnormalities as his kidneys seem to be worsening. I did discuss him at this time that his anemia is likely multifactorial. He again refused transfer at this time to any other hospital given no transportation back. At this time there is no ability to admit to our hospital given no bed availability, availability with GI specialist or a religion instructor. At the time of my discussion with the patient the patient is alert and oriented x4 and did express to me the risks and benefits of leaving AGAINST MEDICAL ADVICE. The patient was apprised of the potential risks of leaving the hospital AGAINST MEDICAL ADVICE. They include serious complications, permanent disability, and . At the time of my interview with the patient, the patient was alert, oriented, and capable. I urged the patient to return to the hospital as soon as possible to complete their evaluation and treatment. I contacted Dr. Kemp who is aware that the patient left AGAINST MEDICAL ADVICE DISPOSITION: The patient left AGAINST MEDICAL ADVICE CONDITION: Serious PROCEDURES: None FINAL IMPRESSION(S)/DIAGNOSES: 1. Acute on chronic upper GI bleed versus gastritis versus esophagitis 2. Acute on chronic microcytic anemia likely secondary to blood loss anemia from upper GI bleed and kidney dysfunction 3. Acute hyperchloremic metabolic acidosis likely secondary to kidney dysfunction 4. Acute hypophosphatemia likely secondary to kidney dysfunction 5. Acute hypomagnesemia 6. Hypoalbuminemia likely secondary to protein calorie malnutrition 7. Uncontrolled hypertension Matti South M.D. Course - Vital Signs Last Recorded V/S: Last Vital Signs Temp 36.4 C 11/16/20 17:33 Pulse 101 H 11/16/20 19:00 Resp 19 11/16/20 19:00 BP 163/100 H 11/16/20 20:30 Pulse Ox 98 11/16/20 19:00 - Orders/Labs/Meds Orders: Active Orders 24 hr Category Date Time Status Saline Lock Insert [OM.PC] Stat Ot 11/16/20 17:36 Ordered Transfuse PRBC [Transfuse Red Blood Cells] [COMM] Stat Ot 11/16/20 23:20 Ordered Labs: Laboratory Tests 11/16/20 11/16/20 11/16/20 Range/Units 18:40 18:40 18:40 WBC 6.31 (4.0-11.0) K/uL RBC 3.42 L (4.50-5.90) M/uL Hgb 7.4 L (13.0-17.0) g/dL Hct 22.9 L (38.0-50.0) % MCV 67.0 L (80.0-98.0) fL MCH 21.6 L (27.0-32.0) pg MCHC 32.3 (31.0-37.0) g/dL RDW Std Deviation 37.5 (28.0-62.0) fl RDW Coeff of Dania 15 (11.0-15.0) % Plt Count 323 (150-400) K/uL MPV 9.90 (7.40-12.00) fL Neut % (Auto) 77.2 (48.0-80.0) % Lymph % (Auto) 16.6 (16.0-40.0) % [place]ard % (Auto) 5.1 (0.0-15.0) % Eos % (Auto) 0.6 (0.0-7.0) % Baso % (Auto) 0.5 (0.0-1.5) % Neut # (Auto) 4.9 (1.4-5.7) K/uL Lymph # (Auto) 1.1 (0.6-2.4) K/uL Seward # (Auto) 0.3 (0.0-0.8) K/uL Eos # (Auto) 0.0 (0.0-0.7) K/uL Baso # (Auto) 0.0 (0.0-0.1) K/uL Nucleated RBC % 0.0 /100WBC Nucleated RBCs # 0 K/uL INR 1.10 APTT 26.5 (18.6-31.3) SEC Lactate 1.5 (0.20-2.00) mmol/L Sodium (136-148) mmol/L Potassium (3.5-5.1) mmol/L Chloride (98-107) mmol/L Carbon Dioxide (21.0-32.0) mmol/L BUN (7.0-18.0) mg/dL Creatinine (0.8-1.3) mg/dL Est Cr Clr Drug Dosing Estimated GFR (MDRD) ml/min Glucose (74-106) mg/dL Calcium (8.5-10.1) mg/dL Phosphorus (2.6-4.7) mg/dL Magnesium (1.8-2.4) mg/dL Total Bilirubin (0.2-1.0) mg/dL AST (15-37) IU/L ALT (14-63) IU/L Alkaline Phosphatase (46-116) U/L Troponin I (0.000-0.056) ng/mL Total Protein (6.4-8.2) g/dL Albumin (3.4-5.0) g/dL Globulin (2.6-4.0) g/dL Albumin/Globulin Ratio (0.9-1.6) Lipase (73-393) U/L SARS-CoV-2 RNA (BK) (NEGATIVE) 11/16/20 11/16/20 Range/Units 18:40 19:19 WBC (4.0-11.0) K/uL RBC (4.50-5.90) M/uL Hgb (13.0-17.0) g/dL Hct (38.0-50.0) % MCV (80.0-98.0) fL MCH (27.0-32.0) pg MCHC (31.0-37.0) g/dL RDW Std Deviation (28.0-62.0) fl RDW Coeff of Dania (11.0-15.0) % Plt Count (150-400) K/uL MPV (7.40-12.00) fL Neut % (Auto) (48.0-80.0) % Lymph % (Auto) (16.0-40.0) % Seward % (Auto) (0.0-15.0) % Eos % (Auto) (0.0-7.0) % Baso % (Auto) (0.0-1.5) % Neut # (Auto) (1.4-5.7) K/uL Lymph # (Auto) (0.6-2.4) K/uL Seward # (Auto) (0.0-0.8) K/uL Eos # (Auto) (0.0-0.7) K/uL Baso # (Auto) (0.0-0.1) K/uL Nucleated RBC % /100WBC Nucleated RBCs # K/uL INR APTT (18.6-31.3) SEC Lactate (0.20-2.00) mmol/L Sodium 147 (136-148) mmol/L Potassium 3.2 L (3.5-5.1) mmol/L Chloride 115 H (98-107) mmol/L Carbon Dioxide 18.4 L (21.0-32.0) mmol/L BUN 32 H (7.0-18.0) mg/dL Creatinine 4.8 H (0.8-1.3) mg/dL Est Cr Clr Drug Dosing TNP Estimated GFR (MDRD) 17.0 ml/min Glucose 97 (74-106) mg/dL Calcium 6.4 L (8.5-10.1) mg/dL Phosphorus 2.5 L (2.6-4.7) mg/dL Magnesium 1.7 L (1.8-2.4) mg/dL Total Bilirubin 0.2 (0.2-1.0) mg/dL AST 22 (15-37) IU/L ALT 19 (14-63) IU/L Alkaline Phosphatase 73 (46-116) U/L Troponin I < 0.050 (0.000-0.056) ng/mL Total Protein 5.4 L (6.4-8.2) g/dL Albumin 2.2 L (3.4-5.0) g/dL Globulin 3.2 (2.6-4.0) g/dL Albumin/Globulin Ratio 0.7 L (0.9-1.6) Lipase 26 L (73-393) U/L SARS-CoV-2 RNA (BK) NEGATIVE (NEGATIVE) Meds: Medications Discontinued Medications Generic Name Dose Route Start Last Admin Trade Name Lynn PRN Reason Stop Dose Admin Famotidine 20 mg 11/16/20 17:36 11/16/20 18:52 Pepcid IVPUSH 11/16/20 17:37 20 mg ONETIME ONE Administration Haloperidol Lactate 5 mg 11/16/20 18:11 11/16/20 18:53 Haldol IM 11/16/20 18:12 5 mg ONETIME ONE Administration Hydromorphone HCl 1 mg 11/16/20 18:09 11/16/20 18:52 Dilaudid IVPUSH 11/16/20 18:10 1 mg ONETIME ONE Administration Lactated Ringer's 1,000 mls @ 999 mls/hr 11/16/20 17:36 11/16/20 18:54 Ringers, Lactated IV 11/16/20 18:36 999 mls/hr .BOLUS ONE Administration Pantoprazole Sodium 40 mg/ 10 mls @ 300 mls/hr 11/16/20 17:36 11/16/20 18:52 Sodium Chloride IV 03/05/21 17:37 300 mls/hr NOW ONE Administration Pantoprazole Sodium 40 mg/ 10 mls @ 300 mls/hr 11/16/20 23:22 11/16/20 23:48 Sodium Chloride IV 11/16/20 23:23 Not Given NOW ONE Ondansetron HCl 4 mg 11/16/20 17:36 11/16/20 18:52 Zofran IVPUSH 11/16/20 17:37 4 mg ONETIME ONE Administration Sodium Chloride 10 ml 11/16/20 17:36 Saline Flush FLUSH ASDIRECTED PRN Keep Vein Open Sodium Chloride 2.5 ml 11/16/20 17:36 Saline Flush FLUSH ASDIRECTED PRN Keep Vein Open Departure - Departure Time of Disposition: 23:43 Condition: Fair - Discharge Information *PRESCRIPTION DRUG MONITORING PROGRAM REVIEWED*: No *COPY OF PRESCRIPTION DRUG MONITORING REPORT IN PATIENT IVELISSE: No Sepsis Event Note (ED) - Focused Exam Vital Signs: Vital Signs Temp Pulse Resp BP Pulse Ox 11/16/20 20:30 163/100 H 11/16/20 19:30 158/97 H 11/16/20 19:00 101 H 19 212/127 H 98 11/16/20 17:33 36.4 C 118 H 18 217/145 H 100 - My Orders Last 24 Hours: My Active Orders 11/16/20 23:20 Transfuse PRBC [Transfuse Red Blood Cells] [COMM] Stat - Assessment/Plan Last 24 Hours: My Active Orders 11/16/20 23:20 Transfuse PRBC [Transfuse Red Blood Cells] [COMM] Stat
--- NOTE | 2020-11-16 18:36 | CR ---
Indication: Vomiting blood Technique: Chest 1 view Comparison: 11/11/2020 Findings/Impression: Cardiovascular and mediastinum: Heart size and vasculature are normal in caliber and appearance. Mediastinum is within normal limits. Lungs and pleural space: Lungs are clear. No sign of infiltrate or mass. No sign of pleural effusion. No pneumothorax. Bones and soft tissues: No significant findings. Dictated by Narciso Howard MD @ Nov 16 2020 6:33PM Signed by Dr. Narciso Howard @ Nov 16 2020 6:34PM
[2020-11-16 19:19] LABS: BLOOD UREA NITROGEN,BUN 32 mg/dL (7.0-18.0); CARBON DIOXIDE,CO2 18.4 mmol/L (21.0-32.0); CHLORIDE,CL 115 mmol/L (98-107); GLUCOSE RANDOM 97 mg/dL (74-106); LIPASE 26 U/L (73-393); POTASSIUM,K 3.2 mmol/L (3.5-5.1); SODIUM,NA 147 mmol/L (136-148)
[2020-11-16 19:37] VITALS: PULSE 101
[2020-11-16 20:03] VITALS: BP 163/100
--- NOTE | 2020-11-17 02:50 | PCM.EKG ---
#1 Interpretation EKG Date: 11/16/20 Time: 19:06 Rhythm: NSR Rate (Beats/Min): 99 [place]: Normal P-Wave: Present QRS: Normal ST-T: Normal (T wave inversion II and III) QT: Normal Comparison: Change From Previous EKG (no T wave inversions on prior EKG dated 11/11/20) EKG Interpretation Comments: SinuS Rhythm with nonspecific T wave inversion
== END 2020-11-16 23:46 | disposition left against medical advice (07) ==
LOC: MW.ED 17:31
DX: K92.2 Gastrointestinal hemorrhage, unspecified (principal); I12.9 Hypertensive chronic kidney disease with stage 1 through stage 4 chronic kidney disease, or unspecified chronic kidney disease; N18.9 Chronic kidney disease, unspecified; E10.42 Type 1 diabetes mellitus with diabetic polyneuropathy; E10.21 Type 1 diabetes mellitus with diabetic nephropathy; D50.9 Iron deficiency anemia, unspecified; E87.8 Other disorders of electrolyte and fluid balance, not elsewhere classified; E83.39 Other disorders of phosphorus metabolism; E88.09 Other disorders of plasma-protein metabolism, not elsewhere classified; K21.9 Gastro-esophageal reflux disease without esophagitis; Z91.013 Allergy to seafood; Z91.048 Other nonmedicinal substance allergy status; Z88.0 Allergy status to penicillin; Z79.82 Long term (current) use of aspirin; Z79.899 Other long term (current) drug therapy; Z20.822 Contact with and (suspected) exposure to COVID-19
CPT/HCPCS: 36415; 71045; 80053; 83605; 83690; 83735; 84100; 84484; 85025; 85610; 85730; 93005; 96374; 96375; 99285; C9113; J1170; J1630; J2405; J3490; J7120; U0002; 93010; 99284

== ENCOUNTER 2020-11-17 20:56 | Observation (INO) | payer MEDICARE, MEDICAID ==
[2020-11-17] MEDS ORDERED: Haloperidol 5 MG Tab PO ONE (21:18)
[2020-11-17] MEDS ORDERED: diphenhydrAMINE 12.5 MG/5 ML Liquid 5 ML UD Cup PO STA (21:18)
[2020-11-17] MEDS ORDERED: Ondansetron 4 MG Tab.DIS PO ONE (21:19)
[2020-11-17] MEDS ORDERED: Lactated Ringers 1,000 ML IV ONE (21:38)
[2020-11-17] MEDS ORDERED: hydrALAZINE 25 MG Tab PO STA (21:40)
[2020-11-17 21:52] LABS: CARBON DIOXIDE,CO2 23.3 mmol/L (21.0-32.0); POTASSIUM,K 3.9 mmol/L (3.5-5.1)
[2020-11-17] MEDS ORDERED: Morphine 4 MG/ML Syringe IVPUSH ONE (22:42)
[2020-11-17] MEDS ORDERED: HYDROmorphone 1 MG/ML Syringe IVPUSH ONE (23:10)
[2020-11-17] MEDS ORDERED: diphenhydrAMINE 50 MG/ML SDV IVPUSH ONE (23:10)
[2020-11-17] MEDS ORDERED: Prochlorperazine 10 MG/2 ML SDV IVPUSH ONE (23:10)
[2020-11-17] MEDS ORDERED: hydrALAZINE 20 MG/ML SDV IVPUSH ONE (23:58)
[2020-11-18] MEDS ORDERED: HYDROmorphone 2 MG/ML Syringe IVPUSH ONE (00:03)
[2020-11-18] MEDS ORDERED: hydrALAZINE 20 MG/ML SDV IVPUSH ONE (00:33)
[2020-11-18] MEDS ORDERED: HYDROmorphone 1 MG/ML Syringe IVPUSH ONE (01:17)
[2020-11-18] MEDS ORDERED: Alum Hydrox/Mag Hydrox/Simeth 15 ML, Lidocaine 2% 5 ML PO ONE ×2 (01:17)
[2020-11-18] MEDS ORDERED: Glucagon,Human Recombinant 1 MG Vial IM PRN (01:37)
[2020-11-18] MEDS ORDERED: Albuterol/Ipratropium 3.0-0.5 MG/3 ML Neb Soln NEB PRN (01:38)
[2020-11-18] MEDS: Pantoprazole 40 MG in Sodium Chloride 0.9% 10 ML IV SCH ×3 (02:32→21:08)
[2020-11-18] MEDS: Insulin Aspart 100 Units/ML 3 ML Pen SUBCUT SCH ×4 (02:33→20:35)
[2020-11-18] MEDS: Labetalol 100 MG/20 ML MDV IVPUSH PRN ×3 (02:34→20:39)
[2020-11-18] MEDS: Lactated Ringers 1,000 ML IV SCH ×2 (02:44→15:04)
[2020-11-18] MEDS: HYDROmorphone 2 MG/ML Syringe IVPUSH PRN ×3 (05:22→13:41)
[2020-11-18] MEDS: Promethazine 25 MG/ML SDV IM PRN ×2 (05:26→09:53)
[2020-11-18 05:34] LABS: POTASSIUM,K 4.8 mmol/L (3.5-5.1)
--- NOTE | 2020-11-18 07:48 | EDM.PDOC ---
ED HPI GENERAL MEDICAL PROBLEM - General Chief Complaint: Abdominal Pain Stated Complaint: ABDOMINAL PAIN Time Seen by Provider: 11/17/20 21:04 - History of Present Illness INITIAL COMMENTS - FREE TEXT/NARRATIVE: CHIEF COMPLAINT(S): Abdominal pain HISTORY OF PRESENT ILLNESS: This is a 35-year-old man with a past medical history of recurrent coffee-ground emesis with history of esophagitis, gastritis, uncontrolled diabetes mellitus, gastroparesis, CKD with resultant left AV fistula placement in preparation for hemodialysis and uncontrolled hypertension who comes to the emergency department with a chief complaint of abdominal pain. The patient was evaluated in the emergency department yesterday. He states that he returns for continued abdominal pain which she describes as diffuse rated 10 out of 10 associated with coffee-ground emesis. He denies any melena or hematochezia. He states that he is unable to tolerate his medications at home. He states it is unrelenting and nothing seems to be relieving it. He denies any aggravating factors other than it may be exacerbated by his vomiting. He denies any chest pain, shortness of breath, fever or chills. He denies any dysuria. He states that he is still urinating REVIEW OF SYSTEMS: Constitutional: Denies fever, chills. Eyes: Denies eye pain Ears, Nose, Mouth, & Throat: Denies earache Cardiovascular: Denies chest pain Respiratory: Denies shortness of breath Gastrointestinal: Positive for abdominal pain, nausea, vomiting, coffee-ground emesis. Denies diarrhea, hematochezia, melena Genitourinary: Denies hematuria, anuria Skin:Denies a rash MSK: Denies joint pain Neurological: Denies blurred vision Psychiatric: Denies depression PAST MEDICAL HISTORY: As per history of present illness and as reviewed below otherwise noncontributory. SURGICAL HISTORY: As per history of present illness and as reviewed below otherwise noncontributory. SOCIAL HISTORY: As per history of present illness and as reviewed below otherwise noncontributory. FAMILY HISTORY: As per history of present illness and as reviewed below otherwise noncontributory. EXAMINATION OF ORGAN SYSTEMS/BODY AREAS: Constitutional: Blood pressure was 200/125, heart rate 135, respiratory rate 18 with an oxygen saturation 99% on room air. Temperature 36.6 General: Young man who appears to be in a moderate amount of pain psychiatric: Anxious appearing and is walking around the emergency department Eyes: No scleral icterus or conjunctival erythema ENMT: Dry mucous membranes. No pharyngeal erythema. Cardiovascular: Tachycardic but regular no gallops, murmurs, or rubs. Bilateral upper extremity pulses symmetric and intact. No peripheral edema. No JVD. Left upper extremity AV fistula with a palpable thrill Respiratory: Lungs clear to auscultation bilaterally. No wheezes, rales, or rhonchi. Gastrointestinal: Soft, diffusely tender to palpation. No rebound or guarding. 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 Skin: No lesions or abrasions. Neurological: Alert, GCS 15 MEDICAL DECISION MAKING AND COURSE IN THE ED WITH INTERPRETATION/REVIEW OF DIAGNOSTIC STUDIES: This is a 35-year-old man with a past medical history of recurrent coffee-ground emesis with history of esophagitis, gastritis, uncontrolled diabetes mellitus, gastroparesis, CKD with resultant left AV fistu la placement in preparation for hemodialysis and uncontrolled hypertension who comes to the emergency department with a chief complaint of abdominal pain who is hypertensive and tachycardic. At this time since we have evaluated the patient multiple times in our emergency department we will obtained just labs including CBC and CMP. At this time the patient has stated that he has never been able to tolerate his home medications because he continues to vomit therefore I want to trial the patient with p.o. Haldol, Benadryl, and Zofran. We will reevaluate. Patient was unable to tolerate p.o. medication and had one episode of emesis therefore we will place an IV line and provide the patient with 1 L of lactated Ringer's bolus given the tachycardia. We will provide the patient with Compazine and IV Benadryl at this time for nausea relief. We will provide the patient with 1 dose of morphine for pain relief. Time: 2315 Twelve-lead EKG interpreted by myself. Sinus tachycardia at a rate of 126 beats per minute. Normal axis. MT interval is 130 ms. QRS duration is [address] segments are normal without elevations or depressions. No T wave inversions there are Q waves in leads V2 and V3. Hypertrophy not noted. No changes demonstrated from prior EKG dated 11/17/2020. Interpretation: Sinus tachycardia Laboratory: CBC reveals a microcytic anemia with a hemoglobin of 9.1 and hematocrit of 28.8 this is increased from yesterday. Yesterday's labs were likely secondary to dilution given patient's dehydration today. CMP reveals elevated BUN and creatinine at 6.6 indicating acute kidney injury otherwise there is hyperglycemia at 152 and hypoalbuminemia at 3.1. This appears to be significantly improved from yesterday. The patient continued to not able to tolerate p.o. Therefore I did discuss admission with the patient at this time. We did BladderScan the patient and he had 600 cc of urine in his bladder and the patient was able to urinate. Therefore the patient is not anuric given his acute kidney injury. We did provide the patient with 20 mg of hydralazine 10 mg at a time for his continued hypertension after pain relief. We were able to improve the patient's blood pressure to 163/[address] Means and the patient will be admitted to the hospital in stable condition. DISPOSITION: Patient was admitted to the hospital in stable condition CONDITION: Fair PROCEDURES: None FINAL IMPRESSION(S)/DIAGNOSES: 1. Acute on chronic abdominal pain secondary to gastroparesis, gastritis and esophagitis 2. Acute inability to tolerate p.o. likely secondary to #1 3. Acute kidney injury 4. Uncontrolled hypertension Matti [place] M.D. epigastric Pain Score (Numeric/FACES): 7 - Related Data Allergies Allergy/AdvReac Type Severity Reaction Status Date / Time shrimp Allergy Severe Swelling Verified 11/18/20 06:36 iodine Allergy Unknown Anaphylactic Verified 11/18/20 06:36 Shock Penicillins Allergy Unknown Anaphylactic Verified 11/18/20 06:36 Shock shellfish derived Allergy Anaphylactic Verified 11/18/20 06:36 Shock gluten Allergy Severe Muscle Uncoded 11/18/20 06:36 Aches Home Meds: Home Meds Doxazosin [Cardura] 8 mg PO BEDTIME 09/29/19 [History] Metoprolol Succinate 200 mg PO DAILY 09/29/19 [History] atorvaSTATin [Lipitor] 80 mg PO BEDTIME 09/29/19 [History] Insulin Aspart [NovoLOG] 0 unit SUBCUT .UP TO 60 UN DAILY 09/30/19 [History] Metoclopramide [Reglan] 5 mg PO TIDAC #90 tablet 10/10/19 [Rx] Aspirin [Adult Low Dose Aspirin EC] 81 mg PO DAILY 12/07/19 [History] Enalapril Maleate 20 mg PO DAILY 12/07/19 [History] Insulin Glarg,Human.Rec.Analog [Lantus] 15 mg SUBCUT BEDTIME 12/07/19 [History] Iron Ag,Ps/C/Fa6/B12/Zn/SA/Sto [Niferex Tablet] 150 mg PO BID 12/07/19 [History] amLODIPine Besylate [Amlodipine Besylate] 10 mg PO DAILY 12/07/19 [History] hydroCHLOROthiazide [Hydrochlorothiazide] 25 mg PO DAILY 12/07/19 [History] hydrALAZINE [Apresoline] 50 mg PO Q8H #60 tablet 07/14/20 [Rx] Furosemide 40 mg PO DAILY 10/30/20 [History] Insulin Aspart [NovoLOG] ASDIRECTED 10/30/20 [History] Ondansetron [Zofran ODT] 4 mg PO Q8H PRN 10/30/20 [History] Pantoprazole Sodium [Protonix] 40 mg PO BID 10/30/20 [History] diphenhydrAMINE [Benadryl] 50 mg PO BEDTIME PRN 10/30/20 [History] Sulfamethoxazole/Trimethoprim [Bactrim 400-80 MG] 1 each PO BID 7 Days #14 tablet 11/13/20 [Rx] Non-Formulary Medication [NF Drug] 1 each PO BID 11/17/20 [History] Past Medical History - Past Health History Medical/Surgical History: Denies Medical/Surgical History HEENT History: Reports: Impaired Vision Other HEENT History: blind right eye Cardiovascular History: Reports: Hypertension Respiratory History: Reports: None Gastrointestinal History: Reports: Gastritis, GERD, Hiatal Hernia, Other (See Below) Other Gastrointestinal History: h/o gastric ulcers, h/o hiatal hernia; gastroparesis Genitourinary History: Reports: Chronic Renal Insuffiency, Diabetic Nephropathy Musculoskeletal History: Reports: Amputation Other Musculoskeletal History: RLE Neurological History: Reports: Neuropathy, Peripheral Other Neuro History: stroke Psychiatric History: Reports: Anxiety Endocrine/Metabolic History: Reports: Diabetes, Type I Other Endocrine/Metabolic History: brittle diabetic. 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 Hotel Engineer: None Hematologic History: Reports: Anemia Immunologic History: Reports: None Oncologic (Cancer) History: Reports: None Dermatologic History: Reports: Other (See Below) Other Dermatologic History: diabetic foot ulcers - Infectious Disease History Infectious Disease History: Reports: Chicken Pox, MRSA, Novel Coronavirus Other Infectious Disease History: Covid-19 - Past Surgical History Head Surgeries/Procedures: Reports: None HEENT Surgical History: Reports: None Cardiovascular Surgical History: Reports: None Respiratory Surgical History: Reports: None GI Surgical History: Reports: None Male Surgical History: Reports: None Other Male Surgeries/Procedures: AV fistula, L forearm Endocrine Surgical History: Reports: None Neurological Surgical History: Reports: None Musculoskeletal Surgical History: Reports: Amputation Other Musculoskeletal Surgeries/Procedures:: right BKA Oncologic Surgical History: Reports: None Dermatological Surgical History: Reports: None Social & Family History - Family History Family Medical History: No Pertinent Family History Cardiac: Reports: High Cholesterol, Hypertension OBGYN: Reports: Neurological: Reports: None Psychiatric: Reports: Anxiety - Tobacco Use Tobacco Use Status *Q: Former Tobacco User Used Tobacco, but Quit: Yes Month/Year Tobacco Last Used: 2018 Second Hand Smoke Exposure: No - Caffeine Use Caffeine Use: Reports: Tea Other Caffeine Use: daily Caffeine Use Comment: patient is uncooperated - Recreational Drug Use Recreational Drug Use: No - Living Situation & Occupation Living situation: Reports: Single Occupation: Employed (Currently unemployed.) ED ROS GENERAL - Review of Systems Review Of Systems: See Below ED EXAM, GENERAL - Physical Exam Exam: See Below Course - Vital Signs Last Recorded V/S: Last Vital Signs Temp 36.3 C 11/18/20 04:00 Pulse 95 11/18/20 05:00 Resp 18 11/18/20 04:00 BP 134/71 11/18/20 05:00 Pulse Ox 95 11/18/20 04:00 - Orders/Labs/Meds Orders: Active Orders 24 hr Category Date Time Status EKG 12 Lead [EKG Documentation Completion] [RC] STAT Care 11/17/20 23:11 Active Medication Orders Albuterol/Ipratropium (Duoneb 3.0-0.5 Mg/3 Ml) 3 ml NEB Q4HRRT PRN PRN Reason: Shortness of Breath Dextrose/Water (Dextrose 50% In Water) 50 ml IV ASDIRECTED PRN PRN Reason: Hypoglycemia Glucagon (Glucagen) 1 mg IM ASDIRECTED PRN PRN Reason: Hypoglycemia Hydromorphone HCl (Dilaudid) 1 mg IVPUSH Q3H PRN PRN Reason: Pain Last Admin: 11/18/20 05:22 Dose: 1 mg Documented by: BRANDON Lactated Ringer's (Ringers, Lactated) 1,000 mls @ 100 mls/hr IV ASDIRECTED MICHAEL Last Admin: 11/18/20 02:44 Dose: 100 mls/hr Documented by: BRANDON Pantoprazole Sodium 40 mg/ (Sodium Chloride) 10 mls @ 300 mls/hr IV BID MICHAEL Last Admin: 11/18/20 02:32 Dose: 300 mls/hr Documented by: BRANDON Insulin Aspart (Novolog) 0 unit SUBCUT Q6H MICHAEL; Protocol Last Admin: 11/18/20 02:33 Dose: 3 units Documented by: BRANDON Labetalol HCl (Normodyne) 20 mg IVPUSH Q4H PRN; Protocol PRN Reason: Hypertension Last Admin: 11/18/20 02:34 Dose: 20 mg Documented by: BRANDON Promethazine HCl (Phenergan) 25 mg IM Q4H PRN PRN Reason: Nausea/Vomiting Last Admin: 11/18/20 05:26 Dose: 25 mg Documented by: BRANDON Labs: Laboratory Tests 11/17/20 11/17/20 11/17/20 Range/Units 21:23 21:23 21:23 WBC 8.30 (4.0-11.0) K/uL RBC 4.31 L (4.50-5.90) M/uL Hgb 9.1 L (13.0-17.0) g/dL Hct 28.8 L (38.0-50.0) % MCV 66.8 L (80.0-98.0) fL MCH 21.1 L (27.0-32.0) pg MCHC 31.6 (31.0-37.0) g/dL RDW Std Deviation 37.3 (28.0-62.0) fl RDW Coeff of Dania 15 (11.0-15.0) % Plt Count 441 H (150-400) K/uL MPV 9.80 (7.40-12.00) fL Neut % (Auto) 72.2 (48.0-80.0) % Lymph % (Auto) 22.5 (16.0-40.0) % [place] % (Auto) 3.7 (0.0-15.0) % Eos % (Auto) 0.8 (0.0-7.0) % Baso % (Auto) 0.8 (0.0-1.5) % Neut # (Auto) 6.0 H (1.4-5.7) K/uL Lymph # (Auto) 1.9 (0.6-2.4) K/uL [place] # (Auto) 0.3 (0.0-0.8) K/uL Eos # (Auto) 0.1 (0.0-0.7) K/uL Baso # (Auto) 0.1 (0.0-0.1) K/uL Nucleated RBC % 0.0 /100WBC Nucleated RBCs # 0 K/uL Sodium 140 (136-148) mmol/L Potassium 3.9 (3.5-5.1) mmol/L Chloride 104 (98-107) mmol/L Carbon Dioxide 23.3 (21.0-32.0) mmol/L BUN 38 H (7.0-18.0) mg/dL Creatinine 6.6 H (0.8-1.3) mg/dL Est Cr Clr Drug Dosing 15.77 mL/min Estimated GFR (MDRD) 11.7 ml/min Glucose 152 H (74-106) mg/dL Calcium 8.2 L (8.5-10.1) mg/dL Total Bilirubin 0.2 (0.2-1.0) mg/dL AST 26 (15-37) IU/L ALT 22 (14-63) IU/L Alkaline Phosphatase 94 (46-116) U/L Total Protein 7.1 (6.4-8.2) g/dL Albumin 3.1 L (3.4-5.0) g/dL Globulin 4.0 (2.6-4.0) g/dL Albumin/Globulin Ratio 0.8 L (0.9-1.6) Blood Type O POSITIVE Antibody Screen NEGATIVE Meds: Medications Generic Name Dose Route Start Last Admin Trade Name Freq PRN Reason Stop Dose Admin Albuterol/Ipratropium 3 ml 11/18/20 01:38 Duoneb 3.0-0.5 Mg/3 Ml NEB Q4HRRT PRN Shortness of Breath Dextrose/Water 50 ml 11/18/20 01:37 Dextrose 50% In Water IV ASDIRECTED PRN Hypoglycemia Glucagon 1 mg 11/18/20 01:37 Glucagen IM ASDIRECTED PRN Hypoglycemia Hydromorphone HCl 1 mg 11/18/20 01:39 11/18/20 05:22 Dilaudid IVPUSH 1 mg Q3H PRN Administration Pain Lactated Ringer's 1,000 mls @ 100 mls/hr 11/18/20 02:00 11/18/20 02:44 Ringers, Lactated IV 100 mls/hr ASDIRECTED MICHAEL Administration Pantoprazole Sodium 40 mg/ 10 mls @ 300 mls/hr 11/18/20 01:45 11/18/20 02:32 Sodium Chloride IV 300 mls/hr BID MICHAEL Administration Insulin Aspart 0 unit 11/18/20 02:00 11/18/20 02:33 Novolog SUBCUT 3 units Q6H MICHAEL Administration Protocol Labetalol HCl 20 mg 11/18/20 01:34 11/18/20 02:34 Normodyne IVPUSH 20 mg Q4H PRN Administration Hypertension Protocol Promethazine HCl 25 mg 11/18/20 01:40 11/18/20 05:26 Phenergan IM 25 mg Q4H PRN Administration Nausea/Vomiting Discontinued Medications Generic Name Dose Route Start Last Admin Trade Name Freq PRN Reason Stop Dose Admin Al Hydroxide/Mg Hydroxide 15 0 ml 11/18/20 01:17 11/18/20 01:34 ml/ Lidocaine HCl 5 ml PO 11/18/20 01:18 Not Given ONETIME ONE Diphenhydramine HCl 50 mg 11/17/20 21:18 11/17/20 22:07 Benadryl PO 11/17/20 21:19 50 mg ONETIME STA Administration Diphenhydramine HCl 25 mg 11/17/20 23:10 11/17/20 23:27 Benadryl IVPUSH 11/17/20 23:11 25 mg ONETIME ONE Administration Haloperidol 5 mg 11/17/20 21:18 11/17/20 22:27 Haldol PO 11/17/20 21:19 5 mg ONETIME ONE Administration Hydralazine HCl 50 mg 11/17/20 21:40 11/17/20 22:15 Apresoline PO 11/17/20 21:41 50 mg ONETIME STA Administration Hydralazine HCl 10 mg 11/17/20 23:58 11/18/20 00:05 Apresoline IVPUSH 11/17/20 23:59 10 mg ONETIME ONE Administration Hydralazine HCl 10 mg 11/18/20 00:33 11/18/20 00:41 Apresoline IVPUSH 11/18/20 00:34 10 mg ONETIME ONE Administration Hydromorphone HCl 0.5 mg 11/17/20 23:10 11/17/20 23:31 Dilaudid IVPUSH 11/17/20 23:11 0.5 mg ONETIME ONE Administration Hydromorphone HCl 0.5 mg 11/18/20 00:03 11/18/20 00:12 Dilaudid IVPUSH 11/18/20 00:04 0.5 mg ONETIME ONE Administration Hydromorphone HCl 1 mg 11/18/20 01:17 11/18/20 01:33 Dilaudid IVPUSH 11/18/20 01:18 1 mg ONETIME ONE Administration Lactated Ringer's 1,000 mls @ 999 mls/hr 11/17/20 21:38 11/17/20 23:42 Ringers, Lactated IV 11/17/20 22:38 999 mls/hr .BOLUS ONE Administration Morphine Sulfate 4 mg 11/17/20 22:42 11/17/20 22:46 Morphine IVPUSH 11/17/20 22:43 4 mg ONETIME ONE Administration Ondansetron HCl 4 mg 11/17/20 21:19 11/17/20 21:24 Zofran Odt PO 11/17/20 21:20 4 mg ONETIME ONE Administration Prochlorperazine Edisylate 10 mg 11/17/20 23:10 11/17/20 23:36 Compazine IVPUSH 11/17/20 23:11 10 mg ONETIME ONE Administration Departure - Departure Time of Disposition: 00:56 Disposition: Admitted As Inpatient 67 Condition: Fair Clinical Impression: Abdominal pain - Discharge Information Sepsis Event Note (ED) - Evaluation Sepsis Screening Result: No Definite Risk - Focused Exam Vital Signs: Vital Signs Temp Pulse Resp BP BP Pulse Ox 11/18/20 00:16 132 H 24 H 207/127 H 100 11/17/20 23:45 133 H 24 H 215/137 H 100 11/17/20 22:15 196/131 H 11/17/20 21:06 36.6 C 135 H 18 200/125 H 99 - My Orders Last 24 Hours: My Active Orders 11/17/20 23:11 EKG 12 Lead [EKG Documentation Completion] [RC] STAT - Assessment/Plan Last 24 Hours: My Active Orders 11/17/20 23:11 EKG 12 Lead [EKG Documentation Completion] [RC] STAT
--- NOTE | 2020-11-18 07:49 | PCM.HP.2 ---
H&P History of Present Illness - General Date of Service: 11/18/20 Admit Problem/Dx: Admission Diagnosis/Problem Admission Diagnosis/Problem Hypertensive urgency - History of Present Illness Initial Comments - Free Text/Narative: This is a 35-year-old man with a past medical history of recurrent coffee-ground emesis with history of esophagitis, gastritis, uncontrolled diabetes mellitus, gastroparesis, CKD , recent left AV fistula placement in preparation for hemodialysis and uncontrolled hypertension who comes to the emergency department with a chief complaint of abdominal pain. The patient was evaluated in the emergency department yesterday but left AMA as he didn't want to be transferred to another facility. Patient states his symptoms haven't resolved so he came back. He denies any melena or hematochezia. He denies any aggravating factors other than it may be exacerbated by his vomiting. He denies any chest pain, shortness of breath, fever or chills. He denies any dysuria. He states that he is still urinating. Parients Hb was stable and he hasnt started his dialysis yet, and still makes urine. His creatinine was worse than before. Patient was admitted for further management. epigastric Pain Score (Numeric/FACES): 7 - Related Data Allergies/Adverse Reactions: Allergies Allergy/AdvReac Type Severity Reaction Status Date / Time shrimp Allergy Severe Swelling Verified 11/18/20 06:36 iodine Allergy Unknown Anaphylactic Verified 11/18/20 06:36 Shock Penicillins Allergy Unknown Anaphylactic Verified 11/18/20 06:36 Shock shellfish derived Allergy Anaphylactic Verified 11/18/20 06:36 Shock gluten Allergy Severe Muscle Uncoded 11/18/20 06:36 Aches Home Medications: Home Meds Metoprolol Succinate 200 mg PO DAILY 09/29/19 [History] atorvaSTATin [Lipitor] 80 mg PO BEDTIME 09/29/19 [History] Insulin Aspart [NovoLOG] 0 unit SUBCUT .UP TO 60 UN DAILY 09/30/19 [History] Metoclopramide [Reglan] 5 mg PO TIDAC #90 tablet 10/10/19 [Rx] Aspirin [Adult Low Dose Aspirin EC] 81 mg PO DAILY 12/07/19 [History] Enalapril Maleate 20 mg PO DAILY 12/07/19 [History] Insulin Glarg,Human.Rec.Analog [Lantus] 15 mg SUBCUT BEDTIME 12/07/19 [History] Iron Ag,Ps/C/Fa6/B12/Zn/SA/Sto [Niferex Tablet] 150 mg PO BID 12/07/19 [History] amLODIPine Besylate [Amlodipine Besylate] 10 mg PO DAILY 12/07/19 [History] hydroCHLOROthiazide [Hydrochlorothiazide] 25 mg PO DAILY 12/07/19 [History] hydrALAZINE [Apresoline] 50 mg PO Q8H #60 tablet 07/14/20 [Rx] Furosemide 40 mg PO DAILY 10/30/20 [History] Insulin Aspart [NovoLOG] ASDIRECTED 10/30/20 [History] Ondansetron [Zofran ODT] 4 mg PO Q8H PRN 10/30/20 [History] Pantoprazole Sodium [Protonix] 40 mg PO BID 10/30/20 [History] diphenhydrAMINE [Benadryl] 50 mg PO BEDTIME PRN 10/30/20 [History] Sulfamethoxazole/Trimethoprim [Bactrim 400-80 MG] 1 each PO BID 7 Days #14 tablet 11/13/20 [Rx] Non-Formulary Medication [NF Drug] 1 each PO BID 11/17/20 [History] Doxazosin [Cardura] 8 mg PO BEDTIME 11/18/20 [History] Past Medical History - Past Health History Medical/Surgical History: Denies Medical/Surgical History HEENT History: Reports: Impaired Vision Other HEENT History: blind right eye Cardiovascular History: Reports: Hypertension Respiratory History: Reports: None Gastrointestinal History: Reports: Gastritis, GERD, Hiatal Hernia, Other (See Below) Other Gastrointestinal History: h/o gastric ulcers, h/o hiatal hernia; gastroparesis Genitourinary History: Reports: Chronic Renal Insuffiency, Diabetic Nephropathy Musculoskeletal History: Reports: Amputation Other Musculoskeletal History: RLE Neurological History: Reports: Neuropathy, Peripheral Other Neuro History: stroke Psychiatric History: Reports: Anxiety Endocrine/Metabolic History: Reports: Diabetes, Type I Other Endocrine/Metabolic History: brittle diabetic. 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 Behavioral Science Chair: None Hematologic History: Reports: Anemia Immunologic History: Reports: None Oncologic (Cancer) History: Reports: None Dermatologic History: Reports: Other (See Below) Other Dermatologic History: diabetic foot ulcers - Infectious Disease History Infectious Disease History: Reports: Chicken Pox, MRSA, Novel Coronavirus Other Infectious Disease History: Covid-19 - Past Surgical History Head Surgeries/Procedures: Reports: None HEENT Surgical History: Reports: None Cardiovascular Surgical History: Reports: None Respiratory Surgical History: Reports: None GI Surgical History: Reports: None Male Surgical History: Reports: None Other Male Surgeries/Procedures: AV fistula, L forearm Endocrine Surgical History: Reports: None Neurological Surgical History: Reports: None Musculoskeletal Surgical History: Reports: Amputation Other Musculoskeletal Surgeries/Procedures:: right BKA Oncologic Surgical History: Reports: None Dermatological Surgical History: Reports: None Social & Family History - Family History Family Medical History: No Pertinent Family History Cardiac: Reports: High Cholesterol, Hypertension OBGYN: Reports: Neurological: Reports: None Psychiatric: Reports: Anxiety - Tobacco Use Tobacco Use Status *Q: Former Tobacco User Used Tobacco, but Quit: Yes Month/Year Tobacco Last Used: 2018 Second Hand Smoke Exposure: No - Caffeine Use Caffeine Use: Reports: Tea Other Caffeine Use: daily Caffeine Use Comment: patient is uncooperated - Recreational Drug Use Recreational Drug Use: No - Living Situation & Occupation Living situation: Reports: Single Occupation: Employed (Currently unemployed.) H&P Review of Systems - Review of Systems: Review Of Systems: See Below General: Denies: Fever, Chills Pulmonary: Denies: Shortness of Breath, Wheezing Gastrointestinal: Reports: Abdominal Pain, Anorexia, Decreased Appetite, Hematemesis, Nausea. Denies: Black Stool, Bloody Stool, Constipation, Diarrhea Genitourinary: Denies: Dysuria, Burning Musculoskeletal: Denies: Neck Pain, Shoulder Pain Skin: Denies: Cyanosis, Jaundice, Mottled Psychiatric: Denies: Confusion, Depression Neurological: Denies: Confusion, Dizziness, Headache Exam - Exam Exam: See Below - Vital Signs Vital Signs: Last Vital Signs Temp 36.3 C 11/18/20 04:00 Pulse 95 11/18/20 05:00 Resp 18 11/18/20 04:00 BP 134/71 11/18/20 05:00 Pulse Ox 95 11/18/20 04:00 Weight: 79.025 kg - Exam General: Alert, Cooperative, Mild Distress Neck: Supple, Trachea Midline Lungs: Clear to Auscultation Cardiovascular: Regular Rate, Regular Rhythm, Normal S1, Normal S2 GI/Abdominal Exam: Normal Bowel Sounds, Soft, Tender (epgastric region). No: Non-Tender Back Exam: No: CVA Tenderness (L), CVA Tenderness (R) Neuro Extensive - Mental Status: Alert, Oriented x3, Normal Mood/Affect Neuro Extensive - Motor, Sensory, Reflexes: CN II-XII Intact, Normal Reflexes - Patient Data Lab Results Last 24 hrs: Laboratory Results - last 24 hr 11/17/20 11/17/20 11/17/20 Range/Units 21:23 21:23 21:23 WBC 8.30 (4.0-11.0) K/uL RBC 4.31 L (4.50-5.90) M/uL Hgb 9.1 L (13.0-17.0) g/dL Hct 28.8 L (38.0-50.0) % MCV 66.8 L (80.0-98.0) fL MCH 21.1 L (27.0-32.0) pg MCHC 31.6 (31.0-37.0) g/dL RDW Std Deviation 37.3 (28.0-62.0) fl RDW Coeff of Dania 15 (11.0-15.0) % Plt Count 441 H (150-400) K/uL MPV 9.80 (7.40-12.00) fL Neut % (Auto) 72.2 (48.0-80.0) % Lymph % (Auto) 22.5 (16.0-40.0) % Bertie % (Auto) 3.7 (0.0-15.0) % Eos % (Auto) 0.8 (0.0-7.0) % Baso % (Auto) 0.8 (0.0-1.5) % Neut # (Auto) 6.0 H (1.4-5.7) K/uL Lymph # (Auto) 1.9 (0.6-2.4) K/uL Bertie # (Auto) 0.3 (0.0-0.8) K/uL Eos # (Auto) 0.1 (0.0-0.7) K/uL Baso # (Auto) 0.1 (0.0-0.1) K/uL Nucleated RBC % 0.0 /100WBC Nucleated RBCs # 0 K/uL Sodium 140 (136-148) mmol/L Potassium 3.9 (3.5-5.1) mmol/L Chloride 104 (98-107) mmol/L Carbon Dioxide 23.3 (21.0-32.0) mmol/L BUN 38 H (7.0-18.0) mg/dL Creatinine 6.6 H (0.8-1.3) mg/dL Est Cr Clr Drug Dosing 15.77 mL/min Estimated GFR (MDRD) 11.7 ml/min Glucose 152 H (74-106) mg/dL POC Glucose (60-110) mg/dL Calcium 8.2 L (8.5-10.1) mg/dL Total Bilirubin 0.2 (0.2-1.0) mg/dL AST 26 (15-37) IU/L ALT 22 (14-63) IU/L Alkaline Phosphatase 94 (46-116) U/L Total Protein 7.1 (6.4-8.2) g/dL Albumin 3.1 L (3.4-5.0) g/dL Globulin 4.0 (2.6-4.0) g/dL Albumin/Globulin Ratio 0.8 L (0.9-1.6) Blood Type O POSITIVE Antibody Screen NEGATIVE 11/18/20 11/18/20 11/18/20 Range/Units 02:28 05:10 05:10 WBC 12.18 H (4.0-11.0) K/uL RBC 3.59 L (4.50-5.90) M/uL Hgb 7.5 L (13.0-17.0) g/dL Hct 24.0 L (38.0-50.0) % MCV 66.9 L (80.0-98.0) fL MCH 20.9 L (27.0-32.0) pg MCHC 31.3 (31.0-37.0) g/dL RDW Std Deviation 37.0 (28.0-62.0) fl RDW Coeff of Dania 15 (11.0-15.0) % Plt Count 355 (150-400) K/uL MPV 9.70 (7.40-12.00) fL Neut % (Auto) 83.2 H (48.0-80.0) % Lymph % (Auto) 12.5 L (16.0-40.0) % Bertie % (Auto) 3.9 (0.0-15.0) % Eos % (Auto) 0.1 (0.0-7.0) % Baso % (Auto) 0.3 (0.0-1.5) % Neut # (Auto) 10.1 H (1.4-5.7) K/uL Lymph # (Auto) 1.5 (0.6-2.4) K/uL Bertie # (Auto) 0.5 (0.0-0.8) K/uL Eos # (Auto) 0.0 (0.0-0.7) K/uL Baso # (Auto) 0.0 (0.0-0.1) K/uL Nucleated RBC % 0.0 /100WBC Nucleated RBCs # 0 K/uL Sodium 141 (136-148) mmol/L Potassium 4.8 (3.5-5.1) mmol/L Chloride 106 (98-107) mmol/L Carbon Dioxide 27.0 (21.0-32.0) mmol/L BUN 41 H (7.0-18.0) mg/dL Creatinine 6.9 H (0.8-1.3) mg/dL Est Cr Clr Drug Dosing 15.03 mL/min Estimated GFR (MDRD) 11.2 ml/min Glucose 189 H (74-106) mg/dL POC Glucose 293 H (60-110) mg/dL Calcium 7.3 L (8.5-10.1) mg/dL Total Bilirubin (0.2-1.0) mg/dL AST (15-37) IU/L ALT (14-63) IU/L Alkaline Phosphatase (46-116) U/L Total Protein (6.4-8.2) g/dL Albumin (3.4-5.0) g/dL Globulin (2.6-4.0) g/dL Albumin/Globulin Ratio (0.9-1.6) Blood Type Antibody Screen 11/18/20 Range/Units 05:18 WBC (4.0-11.0) K/uL RBC (4.50-5.90) M/uL Hgb (13.0-17.0) g/dL Hct (38.0-50.0) % MCV (80.0-98.0) fL MCH (27.0-32.0) pg MCHC (31.0-37.0) g/dL RDW Std Deviation (28.0-62.0) fl RDW Coeff of Dania (11.0-15.0) % Plt Count (150-400) K/uL MPV (7.40-12.00) fL Neut % (Auto) (48.0-80.0) % Lymph % (Auto) (16.0-40.0) % Bertie % (Auto) (0.0-15.0) % Eos % (Auto) (0.0-7.0) % Baso % (Auto) (0.0-1.5) % Neut # (Auto) (1.4-5.7) K/uL Lymph # (Auto) (0.6-2.4) K/uL Bertie # (Auto) (0.0-0.8) K/uL Eos # (Auto) (0.0-0.7) K/uL Baso # (Auto) (0.0-0.1) K/uL Nucleated RBC % /100WBC Nucleated RBCs # K/uL Sodium (136-148) mmol/L Potassium (3.5-5.1) mmol/L Chloride (98-107) mmol/L Carbon Dioxide (21.0-32.0) mmol/L BUN (7.0-18.0) mg/dL Creatinine (0.8-1.3) mg/dL Est Cr Clr Drug Dosing mL/min Estimated GFR (MDRD) ml/min Glucose (74-106) mg/dL POC Glucose 186 H (60-110) mg/dL Calcium (8.5-10.1) mg/dL Total Bilirubin (0.2-1.0) mg/dL AST (15-37) IU/L ALT (14-63) IU/L Alkaline Phosphatase (46-116) U/L Total Protein (6.4-8.2) g/dL Albumin (3.4-5.0) g/dL Globulin (2.6-4.0) g/dL Albumin/Globulin Ratio (0.9-1.6) Blood Type Antibody Screen Result Diagrams: 11/18/20 05:10 03/07/21 05:10 Sepsis Event Note - Evaluation Sepsis Screening Result: No Definite Risk - Focused Exam Vital Signs: Vital Signs Temp Pulse Resp BP BP Pulse Ox Pulse Ox 11/18/20 05:00 95 134/71 11/18/20 04:00 36.3 C 96 18 128/70 95 11/18/20 03:30 97 129/70 11/18/20 03:00 97 128/71 11/18/20 02:42 101 H 142/77 H 11/18/20 02:20 122 H 181/109 H 11/18/20 02:00 36.8 C 142 H 19 187/92 H 95 96 11/18/20 00:16 132 H 24 H 207/127 H 100 11/17/20 23:45 133 H 24 H 215/137 H 100 11/17/20 22:15 196/131 H 11/17/20 21:06 36.6 C 135 H 18 200/125 H 99 - Problem List (1) Abdominal pain SNOMED Code(s): 55224266 ICD Code: R10.9 - UNSPECIFIED ABDOMINAL PAIN Status: Acute Priority: High Current Visit: Yes (2) Acute kidney injury superimposed on CKD SNOMED Code(s): 02620355 ICD Code: N17.9 - ACUTE KIDNEY FAILURE, UNSPECIFIED; N18.9 - CHRONIC KIDNEY DISEASE, UNSPECIFIED Status: Acute Current Visit: No (3) Diabetes mellitus type 2, uncontrolled SNOMED Code(s): 645896721, 001202453 ICD Code: E11.65 - TYPE 2 DIABETES MELLITUS WITH HYPERGLYCEMIA Status: Acute Current Visit: No (4) Esophagitis SNOMED Code(s): 20031549 ICD Code: K20.9 - ESOPHAGITIS, UNSPECIFIED * DO NOT USE * Status: Acute Current Visit: No Onset Date: 09/27/14 (5) Gastritis SNOMED Code(s): 0412439 ICD Code: K29.70 - GASTRITIS, UNSPECIFIED, WITHOUT BLEEDING Status: Acute Current Visit: No Qualifiers: Gastritis type: unspecified gastritis Chronicity: acute Gastritis bleeding: with bleeding Qualified Code(s): K29.01 - Acute gastritis with bleeding (6) Gastrointestinal hemorrhage SNOMED Code(s): 12229239 ICD Code: K92.2 - GASTROINTESTINAL HEMORRHAGE, UNSPECIFIED Status: Acute Current Visit: No Qualifiers: GI bleed type/associated pathology: unspecified gastrointestinal hemorrhage type Qualified Code(s): K92.2 - Gastrointestinal hemorrhage, unspecified (7) Gastroparesis due to DM SNOMED Code(s): 449376268 ICD Code: E11.43 - TYPE 2 DIABETES W DIABETIC AUTONOMIC (POLY)NEUROPATHY; K31.84 - GASTROPARESIS Status: Acute Current Visit: No (8) Hematemesis SNOMED Code(s): 2527424 ICD Code: K92.0 - HEMATEMESIS Status: Acute Priority: High Current Visit: No Qualifiers: Nausea presence: with nausea Qualified Code(s): K92.0 - Hematemesis (9) Hypertensive urgency SNOMED Code(s): 578210117 ICD Code: I16.0 - HYPERTENSIVE URGENCY Status: Acute Current Visit: No (10) Poorly controlled diabetes mellitus SNOMED Code(s): 383399300, 054482768 ICD Code: E11.65 - TYPE 2 DIABETES MELLITUS WITH HYPERGLYCEMIA Status: Acute Current Visit: No (11) Poorly-controlled hypertension SNOMED Code(s): 533566397 ICD Code: I10 - ESSENTIAL (PRIMARY) HYPERTENSION Status: Acute Current Visit: No (12) Anemia SNOMED Code(s): 260171864 ICD Code: D64.9 - ANEMIA, UNSPECIFIED Status: Chronic Current Visit: No Qualifiers: Anemia type: due to chronic kidney disease Problem List Initiated/Reviewed/Updated: Yes Orders Last 24hrs: Active Orders 24 hr Category Date Time Status Admission Status [Patient Status] [ADT] Stat ADT 11/18/20 00:56 Active Accu Check [Blood Glucose Check, Bedside] [RC] Q6H Care 11/18/20 02:00 Active Ambulate [RC] ASDIRECTED Care 11/18/20 01:31 Active EKG 12 Lead [EKG Documentation Completion] [RC] STAT Care 11/17/20 23:11 Active Oxygen Therapy [RC] ASDIRECTED Care 11/18/20 01:30 Active Pulse Oximetry [RC] ASDIRECTED Care 11/18/20 01:31 Active RT Aerosol Therapy [RC] ASDIRECTED Care 11/18/20 01:39 Active Vital Signs [RC] Q4H Care 11/18/20 01:29 Active NPO Now [Nothing per Oral Now Diet] [DIET] Diet 11/18/20 Breakfast Active Albuterol/Ipratropium [DuoNeb 3.0-0.5 MG/3 ML] Med 11/18/20 01:38 Active 3 ml NEB Q4HRRT PRN Dextrose 50% in Water Med 11/18/20 01:37 Active 50 ml IV ASDIRECTED PRN Glucagon,Human Recombinant [GlucaGen] Med 11/18/20 01:37 Active 1 mg IM ASDIRECTED PRN HYDROmorphone [Dilaudid] Med 11/18/20 01:39 Active 1 mg IVPUSH Q3H PRN Insulin Aspart [NovoLOG] Med 11/18/20 02:00 Active See Protocol SUBCUT Q6H Labetalol [Normodyne] Med 11/18/20 01:34 Active 20 mg IVPUSH Q4H PRN Lactated Ringers [Ringers, Lactated] 1,000 ml Med 11/18/20 02:00 Active IV ASDIRECTED Pantoprazole [ProTONIX IV] 40 mg Med 11/18/20 01:45 Active Sodium Chloride 0.9% [Normal Saline] 10 ml IV BID Promethazine [Phenergan] Med 11/18/20 01:40 Active 25 mg IM Q4H PRN Medication Orders Albuterol/Ipratropium (Duoneb 3.0-0.5 Mg/3 Ml) 3 ml NEB Q4HRRT PRN PRN Reason: Shortness of Breath Dextrose/Water (Dextrose 50% In Water) 50 ml IV ASDIRECTED PRN PRN Reason: Hypoglycemia Glucagon (Glucagen) 1 mg IM ASDIRECTED PRN PRN Reason: Hypoglycemia Hydromorphone HCl (Dilaudid) 1 mg IVPUSH Q3H PRN PRN Reason: Pain Last Admin: 11/18/20 05:22 Dose: 1 mg Documented by: BRANDON Lactated Ringer's (Ringers, Lactated) 1,000 mls @ 100 mls/hr IV ASDIRECTED MICHAEL Last Admin: 11/18/20 02:44 Dose: 100 mls/hr Documented by: BRANDON Pantoprazole Sodium 40 mg/ (Sodium Chloride) 10 mls @ 300 mls/hr IV BID MICHAEL Last Admin: 11/18/20 02:32 Dose: 300 mls/hr Documented by: BRANDON Insulin Aspart (Novolog) 0 unit SUBCUT Q6H MICHAEL; Protocol Last Admin: 11/18/20 02:33 Dose: 3 units Documented by: BRANDON Labetalol HCl (Normodyne) 20 mg IVPUSH Q4H PRN; Protocol PRN Reason: Hypertension Last Admin: 11/18/20 02:34 Dose: 20 mg Documented by: BRANDON Promethazine HCl (Phenergan) 25 mg IM Q4H PRN PRN Reason: Nausea/Vomiting Last Admin: 11/18/20 05:26 Dose: 25 mg Documented by: BRANDON Assessment/Plan Comment:: 35 y/o M admitted for abdominal pain, with some hematemesis Hb on presentation had improved from yesterday f/u Hb had dropped so will transfuse 1 Unit PRBC Patient educated if he starts having active bleeding and if he ends up needing dialysis he would have to be transferred to higher level of care, although not keen he states he understands For now pain is better controlled with Dilaudid and no more bloody vomitus is noted, no indication to emergent dialysis start IV fluids NPO for now cont Dilaudid and Phenergan for symtpom control cont home meds for BP control SSI
[2020-11-18] MEDS ORDERED: Labetalol 100 MG/20 ML MDV IVPUSH ONE (15:53)
[2020-11-18] MEDS ORDERED: Doxazosin 4 MG Tab PO SCH (21:00)
[2020-11-18] MEDS ORDERED: atorvaSTATin 40 MG Tab PO SCH (21:00)
[2020-11-18] MEDS ORDERED: Insulin Glargine,Human Rec. Analog 100 Units/ML 3 ML Pen SUBCUT SCH (21:00)
[2020-11-18] MEDS: amLODIPine 5 MG Tab PO SCH (21:02)
[2020-11-18] MEDS: hydrALAZINE 25 MG Tab PO SCH (22:07)
[2020-11-19] MEDS: Lactated Ringers 1,000 ML IV SCH ×2 (00:57→11:04)
[2020-11-19] MEDS: Insulin Aspart 100 Units/ML 3 ML Pen SUBCUT SCH ×3 (02:11→14:57)
[2020-11-19] MEDS: HYDROmorphone 2 MG/ML Syringe IVPUSH PRN (03:14)
[2020-11-19] MEDS: 50% Dextrose in Water 50 ML Syringe IV PRN ×2 (05:03→12:27)
[2020-11-19] MEDS: hydrALAZINE 25 MG Tab PO SCH ×2 (05:39→14:54)
[2020-11-19 06:08] LABS: CARBON DIOXIDE,CO2 25.3 mmol/L (21.0-32.0); POTASSIUM,K 4.6 mmol/L (3.5-5.1)
[2020-11-19] MEDS ORDERED: HYDROmorphone 1 MG/ML Syringe IVPUSH PRN (07:15)
[2020-11-19] MEDS ORDERED: Aspirin 81 MG Tab.EC PO SCH (09:00)
[2020-11-19] MEDS ORDERED: Metoprolol Succinate 100 MG Tab.ER PO SCH (09:00)
[2020-11-19 09:01] VITALS: PULSE 88
[2020-11-19] MEDS: amLODIPine 5 MG Tab PO SCH (09:01)
[2020-11-19] MEDS: Pantoprazole 40 MG in Sodium Chloride 0.9% 10 ML IV SCH (09:02)
[2020-11-19 14:55] VITALS: BP 117/71
--- NOTE | 2020-11-19 16:24 | PCM.DCSUM1 ---
<Sixto Alarcon - Last Filed: 11/19/20 16:29> Discharge Summary - Hospital Course Free Text/Narrative:: 35-year-old male admitted for abdominal pain with hematemesis, hypertensive urgency. Patient has a past medical history of recurrent coffee-ground emesis with history of esophagitis, gastritis, uncontrolled diabetes mellitus, gastroparesis, CKD , recent left AV fistula placement in preparation for hemodialysis and uncontrolled hypertension. Patient was initially evaluated in the emergency department, left AMA, and then returned to the ED due to symptoms not resolving. He denied melena or hematochezia at admission and cannot recall any aggravating factors that may have exacerbated his abdominal pain except for vomiting. At discharge patient denied chest pain, shortness of breath, headaches, dizziness, abdominal pain, nausea, vomiting. Patient initial hemoglobin was stable, follow hemoglobin noted to have dropped to 7.5. Patient was transfused 1 unit PRBC, which brought his hemoglobin up to 8.7. Creatinine was significantly elevated at 6.3 as patient has not had hemodialysis yet. Patient's diet was advanced to clear liquid and then soft mechanical both of which patient tolerated without incident. Patient discharged on home medications and advised to follow-up with primary care physician in follow-up for dialysis treatment. Patient understands. Diagnosis: Stroke: No - Discharge Data Discharge Date: 11/19/20 Discharge Disposition: Home, Self-Care 01 Condition: Stable - Referral to Home Health Primary Care Physician: Fitz Infante MD - Patient Instructions Diet: Diabetic Diet Activity: As Tolerated Driving: Do Not Drive Showering/Bathing: May Shower Notify Provider of: Fever, Increased Pain, Swelling and Redness, Nausea and/or Vomiting - Discharge Plan *PRESCRIPTION DRUG MONITORING PROGRAM REVIEWED*: No *COPY OF PRESCRIPTION DRUG MONITORING REPORT IN PATIENT IVELISSE: No Home Medications: Home Meds Metoprolol Succinate 200 mg PO DAILY 09/29/19 [History] atorvaSTATin [Lipitor] 80 mg PO BEDTIME 09/29/19 [History] Insulin Aspart [NovoLOG] 0 unit SUBCUT .UP TO 60 UN DAILY 09/30/19 [History] Metoclopramide [Reglan] 5 mg PO TIDAC #90 tablet 10/10/19 [Rx] Aspirin [Adult Low Dose Aspirin EC] 81 mg PO DAILY 12/07/19 [History] Enalapril Maleate 20 mg PO DAILY 12/07/19 [History] Insulin Glarg,Human.Rec.Analog [Lantus] 15 mg SUBCUT BEDTIME 12/07/19 [History] Iron Ag,Ps/C/Fa6/B12/Zn/SA/Sto [Niferex Tablet] 150 mg PO BID 12/07/19 [History] amLODIPine Besylate [Amlodipine Besylate] 10 mg PO DAILY 12/07/19 [History] hydroCHLOROthiazide [Hydrochlorothiazide] 25 mg PO DAILY 12/07/19 [History] hydrALAZINE [Apresoline] 50 mg PO Q8H #60 tablet 07/14/20 [Rx] Furosemide 40 mg PO DAILY 10/30/20 [History] Insulin Aspart [NovoLOG] ASDIRECTED 10/30/20 [History] Ondansetron [Zofran ODT] 4 mg PO Q8H PRN 10/30/20 [History] Pantoprazole Sodium [Protonix] 40 mg PO BID 10/30/20 [History] diphenhydrAMINE [Benadryl] 50 mg PO BEDTIME PRN 10/30/20 [History] Sulfamethoxazole/Trimethoprim [Bactrim 400-80 MG] 1 each PO BID 7 Days #14 tablet 11/13/20 [Rx] Non-Formulary Medication [NF Drug] 1 each PO BID 11/17/20 [History] Doxazosin [Cardura] 8 mg PO BEDTIME 11/18/20 [History] Patient Handouts: Abdominal Pain, Adult, [id number] Referrals: Fitz Infante MD [Primary Care Provider] - 11/26/20 2:00 pm - Discharge Summary/Plan Comment DC Time >30 min.: Yes - General Info Date of Service: 11/19/20 Subjective Update: Patient denies nausea, vomiting, abdominal pain, fever, chills. Patient states that he feels fine is able to tolerate clear liquid and soft mechanical foods and would like to go home. - Review of Systems General: Denies: Fever, Fatigue Pulmonary: Denies: Shortness of Breath, Pleuritic Chest Pain Cardiovascular: Denies: Chest Pain Gastrointestinal: Denies: Abdominal Pain, Nausea, Vomiting Neurological: Denies: Confusion, Dizziness Psychiatric: Denies: Confusion - Patient Data Vitals - Most Recent: Last Vital Signs Temp 98 F 11/19/20 12:31 Pulse 88 11/19/20 12:31 Resp 16 11/19/20 12:31 BP 117/71 11/19/20 14:54 Pulse Ox 97 11/19/20 12:31 Weight - Most Recent: 79.025 kg I&O - Last 24 hours: Intake & Output 11/19/20 11/19/20 11/19/20 06:59 14:59 22:59 Intake Total 1330 Output Total 850 Balance 480 Lab Results - Last 24 hrs: Laboratory Results - last 24 hr 11/18/20 11/18/20 11/19/20 Range/Units 20:27 21:45 01:47 WBC (4.0-11.0) K/uL RBC (4.50-5.90) M/uL Hgb 8.6 L (13.0-17.0) g/dL Hct 27.2 L (38.0-50.0) % MCV (80.0-98.0) fL MCH (27.0-32.0) pg MCHC (31.0-37.0) g/dL RDW Std Deviation (28.0-62.0) fl RDW Coeff of Dania (11.0-15.0) % Plt Count (150-400) K/uL MPV (7.40-12.00) fL Neut % (Auto) (48.0-80.0) % Lymph % (Auto) (16.0-40.0) % Dade % (Auto) (0.0-15.0) % Eos % (Auto) (0.0-7.0) % Baso % (Auto) (0.0-1.5) % Neut # (Auto) (1.4-5.7) K/uL Lymph # (Auto) (0.6-2.4) K/uL Dade # (Auto) (0.0-0.8) K/uL Eos # (Auto) (0.0-0.7) K/uL Baso # (Auto) (0.0-0.1) K/uL Nucleated RBC % /100WBC Nucleated RBCs # K/uL Sodium (136-148) mmol/L Potassium (3.5-5.1) mmol/L Chloride (98-107) mmol/L Carbon Dioxide (21.0-32.0) mmol/L BUN (7.0-18.0) mg/dL Creatinine (0.8-1.3) mg/dL Est Cr Clr Drug Dosing mL/min Estimated GFR (MDRD) ml/min Glucose (74-106) mg/dL POC Glucose 191 H 66 (60-110) mg/dL Calcium (8.5-10.1) mg/dL Phosphorus (2.6-4.7) mg/dL Magnesium (1.8-2.4) mg/dL 11/19/20 11/19/20 11/19/20 Range/Units 04:56 05:35 05:35 WBC 6.10 (4.0-11.0) K/uL RBC 3.96 L (4.50-5.90) M/uL Hgb 8.7 L (13.0-17.0) g/dL Hct 27.6 L (38.0-50.0) % MCV 69.7 L (80.0-98.0) fL MCH 22.0 L (27.0-32.0) pg MCHC 31.5 (31.0-37.0) g/dL RDW Std Deviation 41.4 (28.0-62.0) fl RDW Coeff of Dania 16 H (11.0-15.0) % Plt Count 309 (150-400) K/uL MPV 9.60 (7.40-12.00) fL Neut % (Auto) 58.0 (48.0-80.0) % Lymph % (Auto) 31.5 (16.0-40.0) % Dade % (Auto) 6.7 (0.0-15.0) % Eos % (Auto) 3.0 (0.0-7.0) % Baso % (Auto) 0.8 (0.0-1.5) % Neut # (Auto) 3.5 (1.4-5.7) K/uL Lymph # (Auto) 1.9 (0.6-2.4) K/uL Dade # (Auto) 0.4 (0.0-0.8) K/uL Eos # (Auto) 0.2 (0.0-0.7) K/uL Baso # (Auto) 0.1 (0.0-0.1) K/uL Nucleated RBC % 0.0 /100WBC Nucleated RBCs # 0 K/uL Sodium 141 (136-148) mmol/L Potassium 4.6 (3.5-5.1) mmol/L Chloride 107 (98-107) mmol/L Carbon Dioxide 25.3 (21.0-32.0) mmol/L BUN 35 H (7.0-18.0) mg/dL Creatinine 6.3 H (0.8-1.3) mg/dL Est Cr Clr Drug Dosing 16.47 mL/min Estimated GFR (MDRD) 12.4 ml/min Glucose 145 H (74-106) mg/dL POC Glucose 43 L (60-110) mg/dL Calcium 7.6 L (8.5-10.1) mg/dL Phosphorus 5.2 H (2.6-4.7) mg/dL Magnesium 2.0 (1.8-2.4) mg/dL 11/19/20 11/19/20 11/19/20 Range/Units 05:35 08:58 12:25 WBC (4.0-11.0) K/uL RBC (4.50-5.90) M/uL Hgb (13.0-17.0) g/dL Hct (38.0-50.0) % MCV (80.0-98.0) fL MCH (27.0-32.0) pg MCHC (31.0-37.0) g/dL RDW Std Deviation (28.0-62.0) fl RDW Coeff of Dania (11.0-15.0) % Plt Count (150-400) K/uL MPV (7.40-12.00) fL Neut % (Auto) (48.0-80.0) % Lymph % (Auto) (16.0-40.0) % Dade % (Auto) (0.0-15.0) % Eos % (Auto) (0.0-7.0) % Baso % (Auto) (0.0-1.5) % Neut # (Auto) (1.4-5.7) K/uL Lymph # (Auto) (0.6-2.4) K/uL Dade # (Auto) (0.0-0.8) K/uL Eos # (Auto) (0.0-0.7) K/uL Baso # (Auto) (0.0-0.1) K/uL Nucleated RBC % /100WBC Nucleated RBCs # K/uL Sodium (136-148) mmol/L Potassium (3.5-5.1) mmol/L Chloride (98-107) mmol/L Carbon Dioxide (21.0-32.0) mmol/L BUN (7.0-18.0) mg/dL Creatinine (0.8-1.3) mg/dL Est Cr Clr Drug Dosing mL/min Estimated GFR (MDRD) ml/min Glucose (74-106) mg/dL POC Glucose 151 H 103 38 L (60-110) mg/dL Calcium (8.5-10.1) mg/dL Phosphorus (2.6-4.7) mg/dL Magnesium (1.8-2.4) mg/dL 11/19/20 11/19/20 Range/Units 12:59 14:56 WBC (4.0-11.0) K/uL RBC (4.50-5.90) M/uL Hgb (13.0-17.0) g/dL Hct (38.0-50.0) % MCV (80.0-98.0) fL MCH (27.0-32.0) pg MCHC (31.0-37.0) g/dL RDW Std Deviation (28.0-62.0) fl RDW Coeff of Dania (11.0-15.0) % Plt Count (150-400) K/uL MPV (7.40-12.00) fL Neut % (Auto) (48.0-80.0) % Lymph % (Auto) (16.0-40.0) % Dade % (Auto) (0.0-15.0) % Eos % (Auto) (0.0-7.0) % Baso % (Auto) (0.0-1.5) % Neut # (Auto) (1.4-5.7) K/uL Lymph # (Auto) (0.6-2.4) K/uL Dade # (Auto) (0.0-0.8) K/uL Eos # (Auto) (0.0-0.7) K/uL Baso # (Auto) (0.0-0.1) K/uL Nucleated RBC % /100WBC Nucleated RBCs # K/uL Sodium (136-148) mmol/L Potassium (3.5-5.1) mmol/L Chloride (98-107) mmol/L Carbon Dioxide (21.0-32.0) mmol/L BUN (7.0-18.0) mg/dL Creatinine (0.8-1.3) mg/dL Est Cr Clr Drug Dosing mL/min Estimated GFR (MDRD) ml/min Glucose (74-106) mg/dL POC Glucose 172 H 159 H (60-110) mg/dL Calcium (8.5-10.1) mg/dL Phosphorus (2.6-4.7) mg/dL Magnesium (1.8-2.4) mg/dL Med Orders - Current: Current Medications Albuterol/Ipratropium (Duoneb 3.0-0.5 Mg/3 Ml) 3 ml NEB Q4HRRT PRN PRN Reason: Shortness of Breath Amlodipine Besylate (Norvasc) 10 mg PO DAILY [facility] Last Admin: 11/19/20 09:01 Dose: 10 mg Documented by: Aspirin (Halfprin) 81 mg PO DAILY [facility] Last Admin: 11/19/20 09:01 Dose: 81 mg Documented by: Atorvastatin Calcium (Lipitor) 80 mg PO BEDTIME [facility] Last Admin: 11/18/20 21:03 Dose: 80 mg Documented by: Dextrose/Water (Dextrose 50% In Water) 50 ml IV ASDIRECTED PRN PRN Reason: Hypoglycemia Last Admin: 11/19/20 12:27 Dose: 50 ml Documented by: Doxazosin Mesylate (Cardura) 8 mg PO BEDTIME [facility] Last Admin: 11/18/20 21:38 Dose: 8 mg Documented by: Glucagon (Glucagen) 1 mg IM ASDIRECTED PRN PRN Reason: Hypoglycemia Hydralazine HCl (Apresoline) 50 mg PO TID [facility] Last Admin: 11/19/20 14:54 Dose: 50 mg Documented by: Hydromorphone HCl (Dilaudid) 1 mg IVPUSH Q3H PRN PRN Reason: Pain Last Admin: 11/19/20 11:04 Dose: 1 mg Documented by: Lactated Ringer's (Ringers, Lactated) 1,000 mls @ 100 mls/hr IV ASDIRECTED [facility] Last Admin: 11/19/20 11:04 Dose: 100 mls/hr Documented by: Pantoprazole Sodium 40 mg/ (Sodium Chloride) 10 mls @ 300 mls/hr IV BID [facility] Last Admin: 11/19/20 09:02 Dose: 300 mls/hr Documented by: Insulin Aspart (Novolog) 0 unit SUBCUT Q6H [facility]; Protocol Last Admin: 11/19/20 14:57 Dose: 1 units Documented by: Insulin Glargine (Lantus Solostar) 15 units SUBCUT BEDTIME [facility] Last Admin: 11/18/20 21:02 Dose: 15 units Documented by: Labetalol HCl (Normodyne) 20 mg IVPUSH Q4H PRN; Protocol PRN Reason: Hypertension Last Admin: 11/18/20 20:39 Dose: 20 mg Documented by: Metoprolol Succinate (Toprol Xl) 200 mg PO DAILY [facility] Last Admin: 11/19/20 09:02 Dose: 200 mg Documented by: Promethazine HCl (Phenergan) 25 mg IM Q4H PRN PRN Reason: Nausea/Vomiting Last Admin: 11/18/20 09:53 Dose: 25 mg Documented by: Discontinued Medications Al Hydroxide/Mg Hydroxide 15 (ml/ Lidocaine HCl 5 ml) 0 ml PO ONETIME ONE Stop: 11/18/20 01:18 Last Admin: 11/18/20 01:34 Dose: Not Given Documented by: Diphenhydramine HCl (Benadryl) 50 mg PO ONETIME STA Stop: 11/17/20 21:19 Last Admin: 11/17/20 22:07 Dose: 50 mg Documented by: Diphenhydramine HCl (Benadryl) 25 mg IVPUSH ONETIME ONE Stop: 11/17/20 23:11 Last Admin: 11/17/20 23:27 Dose: 25 mg Documented by: Haloperidol (Haldol) 5 mg PO ONETIME ONE Stop: 11/17/20 21:19 Last Admin: 11/17/20 22:27 Dose: 5 mg Documented by: Hydralazine HCl (Apresoline) 50 mg PO ONETIME STA Stop: 11/17/20 21:41 Last Admin: 11/17/20 22:15 Dose: 50 mg Documented by: Hydralazine HCl (Apresoline) 10 mg IVPUSH ONETIME ONE Stop: 11/17/20 23:59 Last Admin: 11/18/20 00:05 Dose: 10 mg Documented by: Hydralazine HCl (Apresoline) 10 mg IVPUSH ONETIME ONE Stop: 11/18/20 00:34 Last Admin: 11/18/20 00:41 Dose: 10 mg Documented by: Hydromorphone HCl (Dilaudid) 0.5 mg IVPUSH ONETIME ONE Stop: 11/17/20 23:11 Last Admin: 11/17/20 23:31 Dose: 0.5 mg Documented by: Hydromorphone HCl (Dilaudid) 0.5 mg IVPUSH ONETIME ONE Stop: 11/18/20 00:04 Last Admin: 11/18/20 00:12 Dose: 0.5 mg Documented by: Hydromorphone HCl (Dilaudid) 1 mg IVPUSH ONETIME ONE Stop: 11/18/20 01:18 Last Admin: 11/18/20 01:33 Dose: 1 mg Documented by: Hydromorphone HCl (Dilaudid) 1 mg IVPUSH Q3H PRN PRN Reason: Pain Last Admin: 11/19/20 03:14 Dose: 1 mg Documented by: Lactated Ringer's (Ringers, Lactated) 1,000 mls @ 999 mls/hr IV .BOLUS ONE Stop: 11/17/20 22:38 Last Admin: 11/17/20 23:42 Dose: 999 mls/hr Documented by: Labetalol HCl (Normodyne) 20 mg IVPUSH ONETIME ONE; Protocol Stop: 11/18/20 15:54 Last Admin: 11/18/20 16:11 Dose: 20 mg Documented by: Morphine Sulfate (Morphine) 4 mg IVPUSH ONETIME ONE Stop: 11/17/20 22:43 Last Admin: 11/17/20 22:46 Dose: 4 mg Documented by: Ondansetron HCl (Zofran Odt) 4 mg PO ONETIME ONE Stop: 11/17/20 21:20 Last Admin: 11/17/20 21:24 Dose: 4 mg Documented by: Prochlorperazine Edisylate (Compazine) 10 mg IVPUSH ONETIME ONE Stop: 11/17/20 23:11 Last Admin: 11/17/20 23:36 Dose: 10 mg Documented by: - Exam General: Reports: Alert, Oriented Lungs: Reports: Clear to Auscultation, Normal Respiratory Effort Cardiovascular: Reports: Regular Rate, Regular Rhythm GI/Abdominal Exam: Normal Bowel Sounds Psy/Mental Status: Reports: Alert <Gini Means - Last Filed: 11/21/20 13:17> Discharge Summary - Hospital Course Free Text/Narrative:: I have seen and evaluated the patient. I have discussed findings and treatment plan with resident. I agree with the assessment and plan in the following note. - Referral to Home Health Primary Care Physician: Fitz Infante MD - Discharge Diagnosis/Problem(s) (1) Abdominal pain SNOMED Code(s): 13915348 ICD Code: R10.9 - UNSPECIFIED ABDOMINAL PAIN Status: Acute Priority: High (2) Acute kidney injury superimposed on CKD SNOMED Code(s): 67602380 ICD Code: N17.9 - ACUTE KIDNEY FAILURE, UNSPECIFIED; N18.9 - CHRONIC KIDNEY DISEASE, UNSPECIFIED Status: Acute (3) Diabetes mellitus type 2, uncontrolled SNOMED Code(s): 788206432, 023203814 ICD Code: E11.65 - TYPE 2 DIABETES MELLITUS WITH HYPERGLYCEMIA Status: Acute (4) Esophagitis SNOMED Code(s): 52815581 ICD Code: K20.9 - ESOPHAGITIS, UNSPECIFIED * DO NOT USE * Status: Acute Onset Date: 09/27/14 (5) Gastritis SNOMED Code(s): 3903665 ICD Code: K29.70 - GASTRITIS, UNSPECIFIED, WITHOUT BLEEDING Status: Acute Qualifiers: Gastritis type: unspecified gastritis Chronicity: acute Gastritis bleeding: with bleeding Qualified Code(s): K29.01 - Acute gastritis with bleeding (6) Gastrointestinal hemorrhage SNOMED Code(s): 03874534 ICD Code: K92.2 - GASTROINTESTINAL HEMORRHAGE, UNSPECIFIED Status: Acute Qualifiers: GI bleed type/associated pathology: unspecified gastrointestinal hemorrhage type Qualified Code(s): K92.2 - Gastrointestinal hemorrhage, unspecified (7) Gastroparesis due to DM SNOMED Code(s): 069124378 ICD Code: E11.43 - TYPE 2 DIABETES W DIABETIC AUTONOMIC (POLY)NEUROPATHY; K31.84 - GASTROPARESIS Status: Acute (8) Hematemesis SNOMED Code(s): 8728792 ICD Code: K92.0 - HEMATEMESIS Status: Acute Priority: High Qualifiers: Nausea presence: with nausea Qualified Code(s): K92.0 - Hematemesis (9) Hypertensive urgency SNOMED Code(s): 483773376 ICD Code: I16.0 - HYPERTENSIVE URGENCY Status: Acute (10) Poorly controlled diabetes mellitus SNOMED Code(s): 753025573, 211141569 ICD Code: E11.65 - TYPE 2 DIABETES MELLITUS WITH HYPERGLYCEMIA Status: Acute (11) Poorly-controlled hypertension SNOMED Code(s): 896736681 ICD Code: I10 - ESSENTIAL (PRIMARY) HYPERTENSION Status: Acute (12) Anemia SNOMED Code(s): 971515800 ICD Code: D64.9 - ANEMIA, UNSPECIFIED Status: Chronic Qualifiers: Anemia type: due to chronic kidney disease - Patient Data Vitals - Most Recent: Last Vital Signs Temp 36.6 C 11/19/20 12:31 Pulse 88 11/19/20 12:31 Resp 16 11/19/20 12:31 BP 117/71 11/19/20 14:54 Pulse Ox 97 11/19/20 12:31 Med Orders - Current: Current Medications Discontinued Medications Albuterol/Ipratropium (Duoneb 3.0-0.5 Mg/3 Ml) 3 ml NEB Q4HRRT PRN PRN Reason: Shortness of Breath Amlodipine Besylate (Norvasc) 10 mg PO DAILY [facility] Last Admin: 11/19/20 09:01 Dose: 10 mg Documented by: Aspirin (Halfprin) 81 mg PO DAILY [facility] Last Admin: 11/19/20 09:01 Dose: 81 mg Documented by: Atorvastatin Calcium (Lipitor) 80 mg PO BEDTIME [facility] Last Admin: 11/18/20 21:03 Dose: 80 mg Documented by: Al Hydroxide/Mg Hydroxide 15 (ml/ Lidocaine HCl 5 ml) 0 ml PO ONETIME ONE Stop: 11/18/20 01:18 Last Admin: 11/18/20 01:34 Dose: Not Given Documented by: Dextrose/Water (Dextrose 50% In Water) 50 ml IV ASDIRECTED PRN PRN Reason: Hypoglycemia Last Admin: 11/19/20 12:27 Dose: 50 ml Documented by: Diphenhydramine HCl (Benadryl) 50 mg PO ONETIME STA Stop: 11/17/20 21:19 Last Admin: 11/17/20 22:07 Dose: 50 mg Documented by: Diphenhydramine HCl (Benadryl) 25 mg IVPUSH ONETIME ONE Stop: 11/17/20 23:11 Last Admin: 11/17/20 23:27 Dose: 25 mg Documented by: Doxazosin Mesylate (Cardura) 8 mg PO BEDTIME [facility] Last Admin: 11/18/20 21:38 Dose: 8 mg Documented by: Glucagon (Glucagen) 1 mg IM ASDIRECTED PRN PRN Reason: Hypoglycemia Haloperidol (Haldol) 5 mg PO ONETIME ONE Stop: 11/17/20 21:19 Last Admin: 11/17/20 22:27 Dose: 5 mg Documented by: Hydralazine HCl (Apresoline) 50 mg PO ONETIME STA Stop: 11/17/20 21:41 Last Admin: 11/17/20 22:15 Dose: 50 mg Documented by: Hydralazine HCl (Apresoline) 10 mg IVPUSH ONETIME ONE Stop: 11/17/20 23:59 Last Admin: 11/18/20 00:05 Dose: 10 mg Documented by: Hydralazine HCl (Apresoline) 10 mg IVPUSH ONETIME ONE Stop: 11/18/20 00:34 Last Admin: 11/18/20 00:41 Dose: 10 mg Documented by: Hydralazine HCl (Apresoline) 50 mg PO TID [facility] Last Admin: 11/19/20 14:54 Dose: 50 mg Documented by: Hydromorphone HCl (Dilaudid) 0.5 mg IVPUSH ONETIME ONE Stop: 11/17/20 23:11 Last Admin: 11/17/20 23:31 Dose: 0.5 mg Documented by: Hydromorphone HCl (Dilaudid) 0.5 mg IVPUSH ONETIME ONE Stop: 11/18/20 00:04 Last Admin: 11/18/20 00:12 Dose: 0.5 mg Documented by: Hydromorphone HCl (Dilaudid) 1 mg IVPUSH ONETIME ONE Stop: 11/18/20 01:18 Last Admin: 11/18/20 01:33 Dose: 1 mg Documented by: Hydromorphone HCl (Dilaudid) 1 mg IVPUSH Q3H PRN PRN Reason: Pain Last Admin: 11/19/20 03:14 Dose: 1 mg Documented by: Hydromorphone HCl (Dilaudid) 1 mg IVPUSH Q3H PRN PRN Reason: Pain Last Admin: 11/19/20 11:04 Dose: 1 mg Documented by: Lactated Ringer's (Ringers, Lactated) 1,000 mls @ 999 mls/hr IV .BOLUS ONE Stop: 11/17/20 22:38 Last Admin: 11/17/20 23:42 Dose: 999 mls/hr Documented by: Lactated Ringer's (Ringers, Lactated) 1,000 mls @ 100 mls/hr IV ASDIRECTED [facility] Last Admin: 11/19/20 11:04 Dose: 100 mls/hr Documented by: Pantoprazole Sodium 40 mg/ (Sodium Chloride) 10 mls @ 300 mls/hr IV BID [facility] Last Admin: 11/19/20 09:02 Dose: 300 mls/hr Documented by: Insulin Aspart (Novolog) 0 unit SUBCUT Q6H [facility]; Protocol Last Admin: 11/19/20 14:57 Dose: 1 units Documented by: Insulin Glargine (Lantus Solostar) 15 units SUBCUT BEDTIME [facility] Last Admin: 11/18/20 21:02 Dose: 15 units Documented by: Labetalol HCl (Normodyne) 20 mg IVPUSH Q4H PRN; Protocol PRN Reason: Hypertension Last Admin: 11/18/20 20:39 Dose: 20 mg Documented by: Labetalol HCl (Normodyne) 20 mg IVPUSH ONETIME ONE; Protocol Stop: 11/18/20 15:54 Last Admin: 11/18/20 16:11 Dose: 20 mg Documented by: Metoprolol Succinate (Toprol Xl) 200 mg PO DAILY [facility] Last Admin: 11/19/20 09:02 Dose: 200 mg Documented by: Morphine Sulfate (Morphine) 4 mg IVPUSH ONETIME ONE Stop: 11/17/20 22:43 Last Admin: 11/17/20 22:46 Dose: 4 mg Documented by: Ondansetron HCl (Zofran Odt) 4 mg PO ONETIME ONE Stop: 11/17/20 21:20 Last Admin: 11/17/20 21:24 Dose: 4 mg Documented by: Prochlorperazine Edisylate (Compazine) 10 mg IVPUSH ONETIME ONE Stop: 11/17/20 23:11 Last Admin: 11/17/20 23:36 Dose: 10 mg Documented by: Promethazine HCl (Phenergan) 25 mg IM Q4H PRN PRN Reason: Nausea/Vomiting Last Admin: 11/18/20 09:53 Dose: 25 mg Documented by:
== END 2020-11-19 17:40 | disposition home or self-care (01) ==
LOC: MW.ED 20:56 → MW.ICU 11-18 00:56
PROVIDERS: ADMIT Student in an Organized Health Care Education/Training Program; ATTEND Student in an Organized Health Care Education/Training Program
DX: R10.9 Unspecified abdominal pain (principal); K92.0 Hematemesis; I16.0 Hypertensive urgency; I12.9 Hypertensive chronic kidney disease with stage 1 through stage 4 chronic kidney disease, or unspecified chronic kidney disease; N18.9 Chronic kidney disease, unspecified; K20.90 Esophagitis, unspecified without bleeding; N17.9 Acute kidney failure, unspecified; K29.01 Acute gastritis with bleeding; E11.65 Type 2 diabetes mellitus with hyperglycemia; E11.40 Type 2 diabetes mellitus with diabetic neuropathy, unspecified; E11.22 Type 2 diabetes mellitus with diabetic chronic kidney disease; E11.43 Type 2 diabetes mellitus with diabetic autonomic (poly)neuropathy; K31.84 Gastroparesis; D63.1 Anemia in chronic kidney disease; E78.00 Pure hypercholesterolemia, unspecified; Z87.891 Personal history of nicotine dependence; Z86.16 Personal history of COVID-19; Z88.8 Allergy status to other drugs, medicaments and biological substances; Z91.013 Allergy to seafood; Z88.0 Allergy status to penicillin; Z91.09 Other allergy status, other than to drugs and biological substances; Z79.82 Long term (current) use of aspirin; Z79.4 Long term (current) use of insulin; Z79.899 Other long term (current) drug therapy; Z98.890 Other specified postprocedural states
CPT/HCPCS: 36415; 36430; 80048; 80053; 82962; 83735; 84100; 85014; 85018; 85025; 86850; 86900; 86901; 86920; 86921; 86922; 96372; 96374; 96375; 96376; 99285; A9270; C9113; G0378; J0360; J0780; J1170; J1200; J1815; J2270; J2550; J3490; J7120; P9016; 93010; 99284

== ENCOUNTER 2020-11-23 06:23 | Emergency (ER) | payer MEDICARE, MEDICAID ==
--- NOTE | 2020-11-23 06:29 | EDM.PDOC ---
<Emanuel Ruby - Last Filed: 11/23/20 06:43> ED HPI GENERAL MEDICAL PROBLEM - General Stated Complaint: VOMITING BLOOD Time Seen by Provider: 11/23/20 06:25 Source of Information: Reports: Patient History Limitations: Reports: No Limitations - History of Present Illness INITIAL COMMENTS - FREE TEXT/NARRATIVE: 35-year-old male past medical history insulin-dependent diabetes, hiatal hernia, esophagitis, gastritis, DKA, CKD with LUE fistula in preparation for dialysis (not yet on HD), status post BKA, CVA, hypertension, chronic abdominal pain, gastroparesis, medication noncompliance, COVID-19 presents for vomiting blood. Patient has had these symptoms for years. He notes that he began vomiting bright red blood roughly 5 days ago. He notes that symptoms are worsening. He notes diffuse abdominal pain worse in his midepigastrium. Patient was recently admitted for similar symptoms. He was noted to have a drop in his hemoglobin during admission and was transfused 1unit PRBC. abdominal Pain Score (Numeric/FACES): 9 - Related Data Allergies Allergy/AdvReac Type Severity Reaction Status Date / Time shrimp Allergy Severe Swelling Verified 11/23/20 06:28 iodine Allergy Unknown Anaphylactic Verified 11/23/20 06:28 Shock Penicillins Allergy Unknown Anaphylactic Verified 11/23/20 06:28 Shock shellfish derived Allergy Anaphylactic Verified 11/23/20 06:28 Shock gluten Allergy Severe Muscle Uncoded 11/23/20 06:28 Aches Home Meds: Home Meds Metoprolol Succinate 200 mg PO DAILY 09/29/19 [History] atorvaSTATin [Lipitor] 80 mg PO BEDTIME 09/29/19 [History] Insulin Aspart [NovoLOG] 0 unit SUBCUT .UP TO 60 UN DAILY 09/30/19 [History] Metoclopramide [Reglan] 5 mg PO TIDAC #90 tablet 10/10/19 [Rx] Aspirin [Adult Low Dose Aspirin EC] 81 mg PO DAILY 12/07/19 [History] Enalapril Maleate 20 mg PO DAILY 12/07/19 [History] Insulin Glarg,Human.Rec.Analog [Lantus] 15 mg SUBCUT BEDTIME 12/07/19 [History] Iron Ag,Ps/C/Fa6/B12/Zn/SA/Sto [Niferex Tablet] 150 mg PO BID 12/07/19 [History] amLODIPine Besylate [Amlodipine Besylate] 10 mg PO DAILY 12/07/19 [History] hydroCHLOROthiazide [Hydrochlorothiazide] 25 mg PO DAILY 12/07/19 [History] hydrALAZINE [Apresoline] 50 mg PO Q8H #60 tablet 07/14/20 [Rx] Furosemide 40 mg PO DAILY 10/30/20 [History] Insulin Aspart [NovoLOG] ASDIRECTED 10/30/20 [History] Ondansetron [Zofran ODT] 4 mg PO Q8H PRN 10/30/20 [History] Pantoprazole Sodium [Protonix] 40 mg PO BID 10/30/20 [History] diphenhydrAMINE [Benadryl] 50 mg PO BEDTIME PRN 10/30/20 [History] Sulfamethoxazole/Trimethoprim [Bactrim 400-80 MG] 1 each PO BID 7 Days #14 tablet 11/13/20 [Rx] Non-Formulary Medication [NF Drug] 1 each PO BID 11/17/20 [History] Doxazosin [Cardura] 8 mg PO BEDTIME 11/18/20 [History] Past Medical History - Past Health History Medical/Surgical History: Denies Medical/Surgical History HEENT History: Reports: Impaired Vision Other HEENT History: blind right eye Cardiovascular History: Reports: Hypertension Respiratory History: Reports: None Gastrointestinal History: Reports: Gastritis, GERD, Hiatal Hernia, Other (See Below) Other Gastrointestinal History: h/o gastric ulcers, h/o hiatal hernia; gastroparesis Genitourinary History: Reports: Chronic Renal Insuffiency, Diabetic Nephropathy Musculoskeletal History: Reports: Amputation Other Musculoskeletal History: RLE Neurological History: Reports: Neuropathy, Peripheral Other Neuro History: stroke Psychiatric History: Reports: Anxiety Endocrine/Metabolic History: Reports: Diabetes, Type I Other Endocrine/Metabolic History: brittle diabetic. 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 Residential Roofer: None Hematologic History: Reports: Anemia Immunologic History: Reports: None Oncologic (Cancer) History: Reports: None Dermatologic History: Reports: Other (See Below) Other Dermatologic History: diabetic foot ulcers - Infectious Disease History Infectious Disease History: Reports: Chicken Pox, MRSA, Novel Coronavirus Other Infectious Disease History: Covid-19 - Past Surgical History Head Surgeries/Procedures: Reports: None HEENT Surgical History: Reports: None Cardiovascular Surgical History: Reports: None Respiratory Surgical History: Reports: None GI Surgical History: Reports: None Male Surgical History: Reports: None Other Male Surgeries/Procedures: AV fistula, L forearm Endocrine Surgical History: Reports: None Neurological Surgical History: Reports: None Musculoskeletal Surgical History: Reports: Amputation Other Musculoskeletal Surgeries/Procedures:: right BKA Oncologic Surgical History: Reports: None Dermatological Surgical History: Reports: None Social & Family History - Family History Family Medical History: No Pertinent Family History Cardiac: Reports: High Cholesterol, Hypertension OBGYN: Reports: Neurological: Reports: None Psychiatric: Reports: Anxiety - Caffeine Use Caffeine Use: Reports: Tea Other Caffeine Use: daily Caffeine Use Comment: patient is uncooperated - Living Situation & Occupation Living situation: Reports: Single Occupation: Employed (Currently unemployed.) ED ROS GENERAL - Review of Systems Review Of Systems: Comprehensive ROS is negative, except as noted in HPI. ED EXAM, GENERAL - Physical Exam Exam: See Below Exam Limited By: No Limitations General Appearance: Alert, Anxious Throat/Mouth: Normal Voice, No Airway Compromise Head: Atraumatic, Normocephalic Neck: Normal Inspection Respiratory/Chest: No Respiratory Distress, Lungs Clear, Normal Breath Sounds, No Accessory Muscle Use Cardiovascular: Normal Peripheral Pulses, Tachycardia GI/Abdominal: Soft, No Distention, Other (diffuse TTP) Neurological: Alert Psychiatric: Anxious Skin Exam: Warm, Dry, Intact, Normal Color #1 Interpretation EKG Date: 11/23/20 Time: 06:36 Rhythm: Other (sinus tachycardia) Rate (Beats/Min): 106 [place]: Normal P-Wave: Present QRS: Normal ST-T: Normal QT: Normal IL/PQ Interval: 155 Comparison: No Change EKG Interpretation Comments: tachycardia, no ischemic changes noted, poor baseline Course - Re-Assessments/Exams Free Text/Narrative Re-Assessment/Exam: 11/23/20 06:29 We will get labs. Will give symptomatic medications while working up. Will treat blood pressure as it is markedly elevated. Departure - Departure Disposition: Home, Self-Care 01 Clinical Impression: Abdominal pain Hypertension Qualifiers: Hypertension type: essential hypertension Qualified Code(s): I10 - Essential (primary) hypertension Gastritis Qualifiers: Gastritis type: unspecified gastritis Chronicity: acute Gastritis bleeding: with bleeding Qualified Code(s): K29.01 - Acute gastritis with bleeding - Discharge Information Instructions: Gastritis, Adult, [id number], Hypertension, Adult, [id number], Abdominal Pain, Adult, [id number] Referrals: PCP,None [Primary Care Provider] - Additional Instructions: [facility] - Primary Care [address] [place] [address] [facility] [address] [place] [id number] The following information is given to patients seen in the emergency department who are being discharged to home. This information is to outline your options for follow-up care. We provide all patients seen in our emergency department with a follow-up referral. The need for follow-up, as well as the timing and circumstances, are variable depending upon the specifics of your emergency department visit. If you don't have a primary care physician on staff, we will provide you with a referral. We always advise you to contact your personal physician following an emergency department visit to inform them of the circumstance of the visit and for follow-up with them and/or the need for any referrals to a consulting specialist. The emergency department will also refer you to a specialist when appropriate. This referral assures that you have the opportunity for follow-up care with a specialist. All of these measure are taken in an effort to provide you with optimal care, which includes your follow-up. Under all circumstances we always encourage you to contact your private physician who remains a resource for coordinating your care. When calling for follow-up care, please make the office aware that this follow-up is from your recent emergency room visit. If for any reason you are refused follow-up, please contact the [facility] Emergency Department at and asked to speak to the emergency department charge nurse. <Eddi Curtis - Last Filed: 11/23/20 08:40> Course - Vital Signs Text/Narrative:: 6:59AM my partner turned this patient over to me. He is in moderate distress moaning in pain. He is vomiting blood worse than usual. He has a history of vomiting blood. He was admitted overnight on the seventh of this month and required a transfusion. He has a history of gastritis esophagitis along with end-stage renal disease which is rather acute and recent. He has a dialysis access but has not had dialysis. He is a diabetic and has been in DKA in the past. He has multiple medical problems as described above. His blood pressure responded to intravenous hydralazine and oral hydralazine in the hospital when he was here on the . If IV access is a problem for him and we are working on that now while we wait for laboratory reports. 8:37 AM blood pressure is improved and patient is resting. The patient is more comfortable and I verified that he has his blood pressure medicine at home and will continue to take them Last Recorded V/S: Last Vital Signs Temp 35.9 C L 11/23/20 06:29 Pulse 101 H 11/23/20 07:53 Resp 22 H 11/23/20 07:24 BP 179/89 H 11/23/20 08:33 Pulse Ox 97 11/23/20 07:53 - Orders/Labs/Meds Orders: Active Orders 24 hr Category Date Time Status Accu Check [Blood Glucose Check, Bedside] [RC] ONETIME Care 11/23/20 06:34 Active Cardiac Monitoring [RC] . DIRECTED Care 11/23/20 06:30 Active EKG Documentation Completion [RC] STAT Care 11/23/20 06:30 Active Pulse Oximetry [RC] ASDIRECTED Care 11/23/20 06:30 Active Sodium Chloride 0.9% [Saline Flush] Med 11/23/20 06:30 Active 10 ml FLUSH ASDIRECTED PRN Sodium Chloride 0.9% [Saline Flush] Med 11/23/20 06:30 Active 2.5 ml FLUSH ASDIRECTED PRN Saline Lock Insert [OM.PC] Stat Oth 11/23/20 06:30 Ordered Labs: Laboratory Tests 11/23/20 11/23/20 11/23/20 Range/Units 06:45 06:45 06:45 WBC 9.77 (4.0-11.0) K/uL RBC 4.58 (4.50-5.90) M/uL Hgb 10.0 L (13.0-17.0) g/dL Hct 31.7 L (38.0-50.0) % MCV 69.2 L (80.0-98.0) fL MCH 21.8 L (27.0-32.0) pg MCHC 31.5 (31.0-37.0) g/dL RDW Std Deviation 40.4 (28.0-62.0) fl RDW Coeff of Dania 16 H (11.0-15.0) % Plt Count 357 (150-400) K/uL MPV 10.40 (7.40-12.00) fL Neut % (Auto) 79.4 (48.0-80.0) % Lymph % (Auto) 14.3 L (16.0-40.0) % Cole % (Auto) 4.9 (0.0-15.0) % Eos % (Auto) 1.0 (0.0-7.0) % Baso % (Auto) 0.4 (0.0-1.5) % Neut # (Auto) 7.8 H (1.4-5.7) K/uL Lymph # (Auto) 1.4 (0.6-2.4) K/uL Cole # (Auto) 0.5 (0.0-0.8) K/uL Eos # (Auto) 0.1 (0.0-0.7) K/uL Baso # (Auto) 0.0 (0.0-0.1) K/uL Nucleated RBC % 0.0 /100WBC Nucleated RBCs # 0 K/uL INR APTT (18.6-31.3) SEC Lactate 1.4 (0.20-2.00) mmol/L Sodium 142 (136-148) mmol/L Potassium 4.2 (3.5-5.1) mmol/L Chloride 108 H (98-107) mmol/L Carbon Dioxide 22.3 (21.0-32.0) mmol/L BUN 43 H (7.0-18.0) mg/dL Creatinine 5.6 H (0.8-1.3) mg/dL Est Cr Clr Drug Dosing 18.59 mL/min Estimated GFR (MDRD) 14.2 ml/min Glucose 187 H (74-106) mg/dL POC Glucose (60-110) mg/dL Calcium 8.1 L (8.5-10.1) mg/dL Magnesium 1.9 (1.8-2.4) mg/dL Total Bilirubin 0.3 (0.2-1.0) mg/dL AST 35 (15-37) IU/L ALT 25 (14-63) IU/L Alkaline Phosphatase 91 (46-116) U/L Troponin I < 0.050 (0.000-0.056) ng/mL Total Protein 6.7 (6.4-8.2) g/dL Albumin 2.9 L (3.4-5.0) g/dL Globulin 3.8 (2.6-4.0) g/dL Albumin/Globulin Ratio 0.8 L (0.9-1.6) Lipase 42 L (73-393) U/L SARS-CoV-2 RNA (BK) (NEGATIVE) Blood Type Antibody Screen 11/23/20 11/23/20 11/23/20 Range/Units 06:45 06:45 06:46 WBC (4.0-11.0) K/uL RBC (4.50-5.90) M/uL Hgb (13.0-17.0) g/dL Hct (38.0-50.0) % MCV (80.0-98.0) fL MCH (27.0-32.0) pg MCHC (31.0-37.0) g/dL RDW Std Deviation (28.0-62.0) fl RDW Coeff of Dania (11.0-15.0) % Plt Count (150-400) K/uL MPV (7.40-12.00) fL Neut % (Auto) (48.0-80.0) % Lymph % (Auto) (16.0-40.0) % Cole % (Auto) (0.0-15.0) % Eos % (Auto) (0.0-7.0) % Baso % (Auto) (0.0-1.5) % Neut # (Auto) (1.4-5.7) K/uL Lymph # (Auto) (0.6-2.4) K/uL Cole # (Auto) (0.0-0.8) K/uL Eos # (Auto) (0.0-0.7) K/uL Baso # (Auto) (0.0-0.1) K/uL Nucleated RBC % /100WBC Nucleated RBCs # K/uL INR 1.03 APTT 24.7 (18.6-31.3) SEC Lactate (0.20-2.00) mmol/L Sodium (136-148) mmol/L Potassium (3.5-5.1) mmol/L Chloride (98-107) mmol/L Carbon Dioxide (21.0-32.0) mmol/L BUN (7.0-18.0) mg/dL Creatinine (0.8-1.3) mg/dL Est Cr Clr Drug Dosing mL/min Estimated GFR (MDRD) ml/min Glucose (74-106) mg/dL POC Glucose 173 H (60-110) mg/dL Calcium (8.5-10.1) mg/dL Magnesium (1.8-2.4) mg/dL Total Bilirubin (0.2-1.0) mg/dL AST (15-37) IU/L ALT (14-63) IU/L Alkaline Phosphatase (46-116) U/L Troponin I (0.000-0.056) ng/mL Total Protein (6.4-8.2) g/dL Albumin (3.4-5.0) g/dL Globulin (2.6-4.0) g/dL Albumin/Globulin Ratio (0.9-1.6) Lipase (73-393) U/L SARS-CoV-2 RNA (BK) (NEGATIVE) Blood Type O POSITIVE Antibody Screen NEGATIVE 11/23/20 Range/Units 06:49 WBC (4.0-11.0) K/uL RBC (4.50-5.90) M/uL Hgb (13.0-17.0) g/dL Hct (38.0-50.0) % MCV (80.0-98.0) fL MCH (27.0-32.0) pg MCHC (31.0-37.0) g/dL RDW Std Deviation (28.0-62.0) fl RDW Coeff of Dania (11.0-15.0) % Plt Count (150-400) K/uL MPV (7.40-12.00) fL Neut % (Auto) (48.0-80.0) % Lymph % (Auto) (16.0-40.0) % Cole % (Auto) (0.0-15.0) % Eos % (Auto) (0.0-7.0) % Baso % (Auto) (0.0-1.5) % Neut # (Auto) (1.4-5.7) K/uL Lymph # (Auto) (0.6-2.4) K/uL Cole # (Auto) (0.0-0.8) K/uL Eos # (Auto) (0.0-0.7) K/uL Baso # (Auto) (0.0-0.1) K/uL Nucleated RBC % /100WBC Nucleated RBCs # K/uL INR APTT (18.6-31.3) SEC Lactate (0.20-2.00) mmol/L Sodium (136-148) mmol/L Potassium (3.5-5.1) mmol/L Chloride (98-107) mmol/L Carbon Dioxide (21.0-32.0) mmol/L BUN (7.0-18.0) mg/dL Creatinine (0.8-1.3) mg/dL Est Cr Clr Drug Dosing mL/min Estimated GFR (MDRD) ml/min Glucose (74-106) mg/dL POC Glucose (60-110) mg/dL Calcium (8.5-10.1) mg/dL Magnesium (1.8-2.4) mg/dL Total Bilirubin (0.2-1.0) mg/dL AST (15-37) IU/L ALT (14-63) IU/L Alkaline Phosphatase (46-116) U/L Troponin I (0.000-0.056) ng/mL Total Protein (6.4-8.2) g/dL Albumin (3.4-5.0) g/dL Globulin (2.6-4.0) g/dL Albumin/Globulin Ratio (0.9-1.6) Lipase (73-393) U/L SARS-CoV-2 RNA (BK) NEGATIVE (NEGATIVE) Blood Type Antibody Screen Departure - Departure Time of Disposition: 08:39 Condition: Good Sepsis Event Note (ED) - Focused Exam Vital Signs: Vital Signs Temp Pulse Resp BP Pulse Ox 11/23/20 08:33 179/89 H 11/23/20 08:19 187/93 H 11/23/20 07:53 101 H 207/105 H 97 11/23/20 07:24 104 H 22 H 175/125 H 100 11/23/20 07:14 110 H 24 H 241/138 H 100 11/23/20 06:29 35.9 C L 120 H 26 H 242/148 H 100
[2020-11-23] MEDS ORDERED: Sodium Chloride 0.9% 2.5 ML Syringe FLUSH PRN (06:30)
[2020-11-23] MEDS ORDERED: Sodium Chloride 0.9% 10 ML Syringe FLUSH PRN (06:30)
[2020-11-23] MEDS ORDERED: diphenhydrAMINE 50 MG/ML SDV IVPUSH ONE (06:32)
[2020-11-23] MEDS ORDERED: Haloperidol Lactate 5 MG/ML SDV IM ONE (06:32)
[2020-11-23] MEDS ORDERED: Labetalol 100 MG/20 ML MDV IVPUSH ONE (06:32)
[2020-11-23] MEDS ORDERED: diphenhydrAMINE 50 MG/ML SDV IM ONE (07:02)
[2020-11-23 07:18] LABS: BLOOD UREA NITROGEN,BUN 43 mg/dL (7.0-18.0); CHLORIDE,CL 108 mmol/L (98-107); GLUCOSE RANDOM 187 mg/dL (74-106); LIPASE 42 U/L (73-393); POTASSIUM,K 4.2 mmol/L (3.5-5.1); SODIUM,NA 142 mmol/L (136-148)
--- NOTE | 2020-11-23 07:26 | CR ---
INDICATION: Hematemesis. Hypertension. TECHNIQUE: Chest 1 views COMPARISON: 11/16/2020. FINDINGS: Cardiovascular and mediastinum: Heart size and vasculature are normal in caliber and appearance. Lungs and pleural spaces: Lungs are clear. No sign of infiltrate or mass. No sign of pleural effusion. No pneumothorax. Bones and soft tissues: No significant findings. IMPRESSION: No acute findings and no significant changes from the prior exam. Dictated by Jose R Williamson MD @ Nov 23 2020 7:24AM Signed by Dr. Jose R Williamson @ Nov 23 2020 7:25AM
[2020-11-23 07:33] LABS: CARBON DIOXIDE,CO2 22.3 mmol/L (21.0-32.0)
[2020-11-23 07:55] VITALS: PULSE 101
[2020-11-23] MEDS ORDERED: HYDROmorphone 1 MG/ML Syringe IVPUSH ONE (08:01)
[2020-11-23 08:34] VITALS: BP 179/89
== END 2020-11-23 08:49 | disposition home or self-care (01) ==
LOC: MW.ED 06:23
DX: K29.01 Acute gastritis with bleeding (principal); I12.9 Hypertensive chronic kidney disease with stage 1 through stage 4 chronic kidney disease, or unspecified chronic kidney disease; N18.9 Chronic kidney disease, unspecified; E10.21 Type 1 diabetes mellitus with diabetic nephropathy; E10.42 Type 1 diabetes mellitus with diabetic polyneuropathy; K21.9 Gastro-esophageal reflux disease without esophagitis; Z79.82 Long term (current) use of aspirin; Z79.899 Other long term (current) drug therapy; Z91.013 Allergy to seafood; Z91.048 Other nonmedicinal substance allergy status; Z88.0 Allergy status to penicillin; Z20.822 Contact with and (suspected) exposure to COVID-19; Z99.2 Dependence on renal dialysis; Z86.73 Personal history of transient ischemic attack (TIA), and cerebral infarction without residual deficits
CPT/HCPCS: 36415; 71045; 80053; 82962; 83605; 83690; 83735; 84484; 85025; 85610; 85730; 86850; 86900; 86901; 93005; 96374; 96375; 99284; J1170; J1200; J1630; J3490; U0002; 93010; 99283

== ENCOUNTER 2020-11-24 11:00 | Emergency (ER) | payer MEDICARE, MEDICAID ==
[2020-11-24] MEDS ORDERED: Sodium Chloride 0.9% 2.5 ML Syringe FLUSH PRN (11:32)
[2020-11-24] MEDS ORDERED: Sodium Chloride 0.9% 10 ML Syringe FLUSH PRN (11:32)
[2020-11-24] MEDS ORDERED: Ondansetron 4 MG/2 ML SDV IVPUSH ONE (11:32)
[2020-11-24] MEDS ORDERED: Ketorolac 15 MG/ML SDV IVPUSH ONE (11:32)
[2020-11-24] MEDS ORDERED: Metoprolol Tartrate 5 MG in Sodium Chloride 0.9% 50 ML IV ONE (11:34)
--- NOTE | 2020-11-24 11:36 | EDM.PDOC ---
ED HPI GENERAL MEDICAL PROBLEM - General Chief Complaint: Gastrointestinal Problem Stated Complaint: VOMITING Time Seen by Provider: 11/24/20 11:12 - History of Present Illness INITIAL COMMENTS - FREE TEXT/NARRATIVE: History of present illness: [] Patient well-known to us who comes in frequently with abdominal pain and GI bleed says that he was doing well after he was given Dilaudid Haldol Benadryl yesterday. He went home and felt okay today. Then when he took his medicine he had abdominal pain and felt like he was going to throw up again. The patient was given narcotics yesterday but he comes frequently and is frequently given narcotics I told him at this time unless he needed to go to the operating room or had some convincing acute pathology that I would not give him narcotics. He asked that I admit him to the hospital I explained that if he meets those criteria we certainly will admit him to the hospital. Review of systems: As per history of present illness and below otherwise all systems reviewed and negative. Past medical history: As per history of present illness and as reviewed below otherwise noncontributory. Surgical history: As per history of present illness and as reviewed below otherwise n oncontributory. Social history: No reported history of drug or alcohol abuse. Family history: As per history of present illness and as reviewed below otherwise noncontributory. Physical exam: Constitutional - well developed, well-nourished and in no acute distress HEENT - normocephalic, no evidence of trauma - external nose and mouth normal - no mass in neck and no JVD - mucosae moist EYES - full EOM, PERRL, no icterus - no evidence of inflammation, injection, or drainage Respiratory - no respiratory distress, equal bilateral expansion, lungs clear to auscultation and no abnormal lung sounds Cardiovascular - Regular Rhythm with S1 and S2 appreciated and no murmur, gallop or rub. GI - abdomen soft without distension or organomegaly - normal bowel sounds - no guard or rebound Musculoskeletal no gross deformity of long bones or joints - no tenderness, swelling or edema Neurologic - Alert and oriented times four - CN II-XII grossly intact - motor sensory and coordination symmetrically normal Psychiatric - appropriate mood and affect with normal thought content Hematologic - No petechiae or purpura - mucosa appropriate color and sclera not pale - normal nail bed color and refill Integument - no rash or evidence of trauma - normal turgor Diagnostics: [] Therapeutics: [] Impression: [] Plan: [] Definitive disposition and diagnosis as appropriate pending reevaluation and review of above. Throat, abdomen Pain Score (Numeric/FACES): 8 - Related Data Allergies Allergy/AdvReac Type Severity Reaction Status Date / Time shrimp Allergy Severe Swelling Verified 11/24/20 11:05 iodine Allergy Unknown Anaphylactic Verified 11/24/20 11:05 Shock Penicillins Allergy Unknown Anaphylactic Verified 11/24/20 11:05 Shock shellfish derived Allergy Anaphylactic Verified 11/24/20 11:05 Shock gluten Allergy Severe Muscle Uncoded 11/24/20 11:05 Aches Home Meds: Home Meds Metoprolol Succinate 200 mg PO DAILY 09/29/19 [History] atorvaSTATin [Lipitor] 80 mg PO BEDTIME 09/29/19 [History] Insulin Aspart [NovoLOG] 0 unit SUBCUT .UP TO 60 UN DAILY 09/30/19 [History] Metoclopramide [Reglan] 5 mg PO TIDAC #90 tablet 10/10/19 [Rx] Aspirin [Adult Low Dose Aspirin EC] 81 mg PO DAILY 12/07/19 [History] Enalapril Maleate 20 mg PO DAILY 12/07/19 [History] Insulin Glarg,Human.Rec.Analog [Lantus] 15 mg SUBCUT BEDTIME 12/07/19 [History] Iron Ag,Ps/C/Fa6/B12/Zn/SA/Sto [Niferex Tablet] 150 mg PO BID 12/07/19 [History] amLODIPine Besylate [Amlodipine Besylate] 10 mg PO DAILY 12/07/19 [History] hydroCHLOROthiazide [Hydrochlorothiazide] 25 mg PO DAILY 12/07/19 [History] hydrALAZINE [Apresoline] 50 mg PO Q8H #60 tablet 07/14/20 [Rx] Furosemide 40 mg PO DAILY 10/30/20 [History] Insulin Aspart [NovoLOG] ASDIRECTED 10/30/20 [History] Ondansetron [Zofran ODT] 4 mg PO Q8H PRN 10/30/20 [History] Pantoprazole Sodium [Protonix] 40 mg PO BID 10/30/20 [History] diphenhydrAMINE [Benadryl] 50 mg PO BEDTIME PRN 10/30/20 [History] Sulfamethoxazole/Trimethoprim [Bactrim 400-80 MG] 1 each PO BID 7 Days #14 tablet 11/13/20 [Rx] Non-Formulary Medication [NF Drug] 1 each PO BID 11/17/20 [History] Doxazosin [Cardura] 8 mg PO BEDTIME 11/18/20 [History] Past Medical History - Past Health History Medical/Surgical History: Denies Medical/Surgical History HEENT History: Reports: Impaired Vision Other HEENT History: blind right eye Cardiovascular History: Reports: Hypertension Respiratory History: Reports: None Gastrointestinal History: Reports: Gastritis, GERD, Hiatal Hernia, Other (See Below) Other Gastrointestinal History: h/o gastric ulcers, h/o hiatal hernia; gastroparesis Genitourinary History: Reports: Chronic Renal Insuffiency, Diabetic Nephropathy Musculoskeletal History: Reports: Amputation Other Musculoskeletal History: RLE Neurological History: Reports: Neuropathy, Peripheral Other Neuro History: stroke Psychiatric History: Reports: Anxiety Endocrine/Metabolic History: Reports: Diabetes, Type I Other Endocrine/Metabolic History: brittle diabetic. 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 Hematologic History: Reports: Anemia Immunologic History: Reports: None Oncologic (Cancer) History: Reports: None Dermatologic History: Reports: Other (See Below) Other Dermatologic History: diabetic foot ulcers - Infectious Disease History Infectious Disease History: Reports: Chicken Pox, MRSA, Novel Coronavirus Other Infectious Disease History: Covid-19 - Past Surgical History Head Surgeries/Procedures: Reports: None HEENT Surgical History: Reports: None Cardiovascular Surgical History: Reports: None Respiratory Surgical History: Reports: None GI Surgical History: Reports: None Male Surgical History: Reports: None Other Male Surgeries/Procedures: AV fistula, L forearm Endocrine Surgical History: Reports: None Neurological Surgical History: Reports: None Musculoskeletal Surgical History: Reports: Amputation Other Musculoskeletal Surgeries/Procedures:: right BKA Oncologic Surgical History: Reports: None Dermatological Surgical History: Reports: None Social & Family History - Family History Family Medical History: No Pertinent Family History Cardiac: Reports: High Cholesterol, Hypertension OBGYN: Reports: Neurological: Reports: None Psychiatric: Reports: Anxiety - Tobacco Use Tobacco Use Status *Q: Former Tobacco User Used Tobacco, but Quit: Yes Month/Year Tobacco Last Used: 09/2017 - Caffeine Use Caffeine Use: Reports: None Other Caffeine Use: daily Caffeine Use Comment: patient is uncooperated - Recreational Drug Use Recreational Drug Use: No - Living Situation & Occupation Living situation: Reports: Single Occupation: Employed (Currently unemployed.) ED ROS GENERAL - Review of Systems Review Of Systems: Comprehensive ROS is negative, except as noted in HPI. ED EXAM, GENERAL - Physical Exam Exam: See Below Free Text/Narrative:: Physical exam as in the HPI Course - Vital Signs Text/Narrative:: 1232 the patient's blood pressure is very responsive to minimal beta-blockers. This raises the issue of whether he is actually taking 200 mg a day of metoprolol. The patient claims he is. He also claims he is on his pantoprazole. I will reiterate the need for him to do those things and tell him he can take an antacid ad josé. Patient discharged in satisfactory condition. Last Recorded V/S: Last Vital Signs Temp 36.3 C 11/24/20 11:02 Pulse 96 11/24/20 12:16 Resp 20 11/24/20 11:42 BP 157/100 H 11/24/20 12:16 Pulse Ox 100 11/24/20 12:16 - Orders/Labs/Meds Orders: Active Orders 24 hr Category Date Time Status KUB [Abdomen 1V Flat] [CR] Stat Exams 11/24/20 11:34 Taken Sodium Chloride 0.9% [Saline Flush] Med 11/24/20 11:32 Active 10 ml FLUSH ASDIRECTED PRN Sodium Chloride 0.9% [Saline Flush] Med 11/24/20 11:32 Active 2.5 ml FLUSH ASDIRECTED PRN Saline Lock Insert [OM.PC] Stat Oth 11/24/20 11:32 Ordered Medication Orders Sodium Chloride (Sodium Chloride 0.9% 10 Ml Syringe) 10 ml FLUSH ASDIRECTED PRN PRN Reason: Keep Vein Open Last Admin: 11/24/20 11:42 Dose: 10 ml Documented by: PRIMITIVO Sodium Chloride (Sodium Chloride 0.9% 2.5 Ml Syringe) 2.5 ml FLUSH ASDIRECTED PRN PRN Reason: Keep Vein Open Last Admin: 11/24/20 11:42 Dose: 2.5 ml Documented by: PRIMITIVO Labs: Laboratory Tests 0311/24/20 11/24/20 Range/Units 11:24 11:24 11:30 WBC 10.46 (4.0-11.0) K/uL RBC 5.05 (4.50-5.90) M/uL Hgb 11.1 L (13.0-17.0) g/dL Hct 34.9 L (38.0-50.0) % MCV 69.1 L (80.0-98.0) fL MCH 22.0 L (27.0-32.0) pg MCHC 31.8 (31.0-37.0) g/dL RDW Std Deviation 40.7 (28.0-62.0) fl RDW Coeff of Dania 17 H (11.0-15.0) % Plt Count 338 (150-400) K/uL MPV 10.20 (7.40-12.00) fL Neut % (Auto) 76.8 (48.0-80.0) % Lymph % (Auto) 16.5 (16.0-40.0) % Page % (Auto) 4.7 (0.0-15.0) % Eos % (Auto) 1.5 (0.0-7.0) % Baso % (Auto) 0.5 (0.0-1.5) % Neut # (Auto) 8.0 H (1.4-5.7) K/uL Lymph # (Auto) 1.7 (0.6-2.4) K/uL Page # (Auto) 0.5 (0.0-0.8) K/uL Eos # (Auto) 0.2 (0.0-0.7) K/uL Baso # (Auto) 0.1 (0.0-0.1) K/uL Nucleated RBC % 0.0 /100WBC Nucleated RBCs # 0 K/uL Sodium 139 (136-148) mmol/L Potassium 4.3 (3.5-5.1) mmol/L Chloride 102 (98-107) mmol/L Carbon Dioxide 21.7 (21.0-32.0) mmol/L BUN 47 H (7.0-18.0) mg/dL Creatinine 5.5 H (0.8-1.3) mg/dL Est Cr Clr Drug Dosing 18.92 mL/min Estimated GFR (MDRD) 14.5 ml/min Glucose 224 H (74-106) mg/dL Calcium 8.3 L (8.5-10.1) mg/dL Total Bilirubin 0.4 (0.2-1.0) mg/dL AST 42 H (15-37) IU/L ALT 29 (14-63) IU/L Alkaline Phosphatase 95 (46-116) U/L Total Protein 7.2 (6.4-8.2) g/dL Albumin 3.1 L (3.4-5.0) g/dL Globulin 4.1 H (2.6-4.0) g/dL Albumin/Globulin Ratio 0.8 L (0.9-1.6) Lipase 39 L (73-393) U/L Urine Color YELLOW Urine Appearance CLEAR Urine pH 7.0 (5.0-8.0) Ur Specific Hooker 1.020 (1.001-1.035) Urine Protein >=300 H (NEGATIVE) mg/dL Urine Glucose (UA) 250 H (NEGATIVE) mg/dL Urine Ketones NEGATIVE (NEGATIVE) mg/dL Urine Occult Blood SMALL H (NEGATIVE) Urine Nitrite NEGATIVE (NEGATIVE) Urine Bilirubin NEGATIVE (NEGATIVE) Urine Urobilinogen 0.2 (<2.0) EU/dL Ur Leukocyte Esterase NEGATIVE (NEGATIVE) Urine RBC 0-2 (0-2/HPF) Urine WBC 0-2 (0-5/HPF) Ur Epithelial Cells RARE (NONE-FEW) Urine Bacteria RARE (NEGATIVE) Meds: Medications Generic Name Dose Route Start Last Admin Trade Name Freq PRN Reason Stop Dose Admin Sodium Chloride 10 ml 11/24/20 11:32 11/24/20 11:42 Sodium Chloride 0.9% 10 Ml Syringe FLUSH 10 ml ASDIRECTED PRN Administration Keep Vein Open Sodium Chloride 2.5 ml 11/24/20 11:32 11/24/20 11:42 Sodium Chloride 0.9% 2.5 Ml Syringe FLUSH 2.5 ml ASDIRECTED PRN Administration Keep Vein Open Discontinued Medications Generic Name Dose Route Start Last Admin Trade Name Freq PRN Reason Stop Dose Admin Metoprolol Tartrate 5 mg/ 55 mls @ 100 mls/hr 11/24/20 11:34 11/24/20 11:56 Sodium Chloride IV 11/24/20 12:06 Not Given ONETIME ONE Ketorolac Tromethamine 15 mg 11/24/20 11:32 11/24/20 11:41 Ketorolac 15 Mg/Ml Sdv IVPUSH 11/24/20 11:33 15 mg ONETIME ONE Administration Metoprolol Tartrate 5 mg 11/24/20 11:42 11/24/20 11:57 Metoprolol Tartrate 5 Mg/5 Ml Sdv IVPUSH 11/24/20 11:43 5 mg ONETIME ONE Administration Ondansetron HCl 4 mg 11/24/20 11:32 11/24/20 11:40 Ondansetron 4 Mg/2 Ml Sdv IVPUSH 11/24/20 11:33 4 mg ONETIME ONE Administration Departure - Departure Time of Disposition: 12:32 Disposition: Home, Self-Care 01 Condition: Good Clinical Impression: Chronic abdominal pain, Nausea, Renal failure - Discharge Information Instructions: Nausea and Vomiting, Adult, [id number] Referrals: PCP,None [Primary Care Provider] - Forms: ED Department Discharge Additional Instructions: You have a prescription on your list for pantoprazole. If you do not have it it is good for abdominal pain and you can buy it [id number]. He also can use Tums or antacids ad josé. Sure you are taking your blood pressure medicine. Follow-up as soon as possible. [facility] - Primary Care [address] [place] [address] [place] [address] The following information is given to patients seen in the emergency department who are being discharged to home. This information is to outline your options for follow-up care. We provide all patients seen in our emergency department with a follow-up referral. The need for follow-up, as well as the timing and circumstances, are variable depending upon the specifics of your emergency department visit. If you don't have a primary care physician on staff, we will provide you with a referral. We always advise you to contact your personal physician following an emergency department visit to inform them of the circumstance of the visit and for follow-up with them and/or the need for any referrals to a consulting specialist. The emergency department will also refer you to a specialist when appropriate. This referral assures that you have the opportunity for follow-up care with a specialist. All of these measure are taken in an effort to provide you with optimal care, which includes your follow-up. Under all circumstances we always encourage you to contact your private physician who remains a resource for coordinating your care. When calling for follow-up care, please make the office aware that this follow-up is from your recent emergency room visit. If for any reason you are refused follow-up, please contact the [facility] Emergency Department at and asked to speak to the emergency department charge nurse. Sepsis Event Note (ED) - Evaluation Sepsis Screening Result: Possible Sepsis Risk - Focused Exam Vital Signs: Vital Signs Temp Pulse Pulse Resp BP BP Pulse Ox 11/24/20 12:16 96 157/100 H 100 11/24/20 11:57 115 H 202/123 H 11/24/20 11:42 105 H 20 202/123 H 100 11/24/20 11:02 36.3 C 113 H 24 H 184/132 H 100 - My Orders Last 24 Hours: My Active Orders 11/24/20 11:32 Sodium Chloride 0.9% [Saline Flush] 10 ml FLUSH ASDIRECTED PRN Sodium Chloride 0.9% [Saline Flush] 2.5 ml FLUSH ASDIRECTED PRN Saline Lock Insert [OM.PC] Stat 11/24/20 11:34 KUB [Abdomen 1V Flat] [CR] Stat - Assessment/Plan Last 24 Hours: My Active Orders 11/24/20 11:32 Sodium Chloride 0.9% [Saline Flush] 10 ml FLUSH ASDIRECTED PRN Sodium Chloride 0.9% [Saline Flush] 2.5 ml FLUSH ASDIRECTED PRN Saline Lock Insert [OM.PC] Stat 11/24/20 11:34 KUB [Abdomen 1V Flat] [CR] Stat
[2020-11-24] MEDS ORDERED: Metoprolol Tartrate 5 MG/5 ML SDV IVPUSH ONE (11:42)
[2020-11-24 11:56] LABS: CARBON DIOXIDE,CO2 21.7 mmol/L (21.0-32.0); POTASSIUM,K 4.3 mmol/L (3.5-5.1)
[2020-11-24 12:19] VITALS: PULSE 96
--- NOTE | 2020-11-24 12:37 | CR ---
Indication: Abdominal pain Technique: KUB Comparison: No comparison Findings: Paucity of bowel gas. Large amount of stool in the colon. Nonobstructive bowel gas pattern. No free air. No abnormal masses or calcifications. Dictated by Brigida Denson MD @ Nov 24 2020 12:35PM Signed by Dr. Brigida Denson @ Nov 24 2020 12:36PM
[2020-11-24 12:55] VITALS: BP 180/110
== END 2020-11-24 12:45 | disposition home or self-care (01) ==
LOC: MW.ED 11:00
DX: R10.9 Unspecified abdominal pain (principal); G89.29 Other chronic pain; I12.9 Hypertensive chronic kidney disease with stage 1 through stage 4 chronic kidney disease, or unspecified chronic kidney disease; E10.22 Type 1 diabetes mellitus with diabetic chronic kidney disease; N18.9 Chronic kidney disease, unspecified; R11.0 Nausea; K21.9 Gastro-esophageal reflux disease without esophagitis; E10.21 Type 1 diabetes mellitus with diabetic nephropathy; E10.42 Type 1 diabetes mellitus with diabetic polyneuropathy; D63.1 Anemia in chronic kidney disease; Z87.891 Personal history of nicotine dependence; Z91.018 Allergy to other foods; Z88.8 Allergy status to other drugs, medicaments and biological substances; Z88.0 Allergy status to penicillin; Z91.013 Allergy to seafood; Z79.4 Long term (current) use of insulin; Z79.82 Long term (current) use of aspirin; Z79.899 Other long term (current) drug therapy
CPT/HCPCS: 36415; 74018; 74018-26; 80053; 81001; 83690; 85025; 96374; 96375; 99285-25; J1885; J2405; J3490

== ENCOUNTER 2020-11-24 17:10 | Emergency (ER) | payer MEDICARE, MEDICAID ==
[2020-11-24] MEDS ORDERED: Sodium Chloride 0.9% 10 ML Syringe FLUSH PRN (17:12)
[2020-11-24] MEDS ORDERED: Sodium Chloride 0.9% 2.5 ML Syringe FLUSH PRN (17:12)
[2020-11-24] MEDS ORDERED: Ondansetron 4 MG/2 ML SDV IVPUSH ONE ×3 (17:12→19:31)
[2020-11-24] MEDS ORDERED: Sodium Chloride 0.9% 1,000 ML IV ONE (17:12)
[2020-11-24] MEDS ORDERED: Haloperidol Lactate 5 MG/ML SDV IM ONE ×2 (17:13→17:14)
[2020-11-24] MEDS ORDERED: diphenhydrAMINE 50 MG/ML SDV IVPUSH ONE (17:14)
[2020-11-24] MEDS ORDERED: Pantoprazole 80 MG in Sodium Chloride 0.9% 20 ML IVPUSH ONE (17:26)
[2020-11-24] MEDS ORDERED: Octreotide 50 MCG/1 ML Amp IV ONE (17:55)
[2020-11-24 18:13] LABS: BLOOD UREA NITROGEN,BUN 42 mg/dL (7.0-18.0); CARBON DIOXIDE,CO2 17.1 mmol/L (21.0-32.0); CHLORIDE,CL 109 mmol/L (98-107); GLUCOSE RANDOM 87 mg/dL (74-106); LIPASE 27 U/L (73-393); POTASSIUM,K 2.8 mmol/L (3.5-5.1); SODIUM,NA 145 mmol/L (136-148)
[2020-11-24] MEDS ORDERED: HYDROmorphone 1 MG/ML Syringe IVPUSH ONE (18:13)
[2020-11-24] MEDS ORDERED: HYDROmorphone 2 MG/ML Syringe IVPUSH ONE (18:13)
[2020-11-24 18:25] VITALS: BP 205/116; PULSE 102
--- NOTE | 2020-11-24 18:25 | EDM.PDOC ---
ED HPI GENERAL MEDICAL PROBLEM - General Chief Complaint: Abdominal Pain Stated Complaint: ABDOMINAL PAIN Time Seen by Provider: 11/24/20 17:15 Source of Information: Reports: Patient, EMS History Limitations: Reports: No Limitations - History of Present Illness INITIAL COMMENTS - FREE TEXT/NARRATIVE: HISTORY AND PHYSICAL: History of present illness: Patient is a 35-year-old male presents to the ED today via EMS, who is well known by myself and nursing staff, with concern of abdominal pain and vomiting up blood since he was seen earlier today in the emergency room. Patient states that he typically vomits up blood and this is not new for him. He states that he is here because he would like us to address his abdominal pain and he is not concerned about the bleeding as "this always happens to him". Patient states he has been scoped before to look for bleeding and "no one knows what is wrong" with him. Patient states his last episode of vomiting of blood was in the EMS on his way to the emergency room. EMS did not give anything to patient for his symptoms. Patient denies any change of his abdominal pain per his usual. Patient has a history of poorly controlled type 1 diabetes, poorly controlled hypertension due to medication noncompliance, prior GI bleed requiring blood transfusion, GERD, gastroparesis, chronic kidney disease awaiting dialysis. Patient denies fever, chills, chest pain, shortness of breath, or cough. Denies headache, neck stiff ness, change in vision, syncope, or near syncope. Denies diarrhea, constipation, or dysuria. Has not noted any blood in urine or stool. Review of systems: As per history of present illness and below otherwise all systems reviewed and negative. Past medical history: As per history of present illness and as reviewed below otherwise noncontributory. Surgical history: As per history of present illness and as reviewed below otherwise noncontributory. Social history: See social history for further information Family history: As per history of present illness and as reviewed below otherwise noncontributory. Physical exam: General: Patient is alert, oriented, and in no acute distress. Patient laying on exam table holding abdomen, hypertensive 240s/110, HR 130s, RR 20, otherwise vitally stable. HEENT: Atraumatic, normocephalic, pupils equal and reactive bilaterally, negative for conjunctival pallor or scleral icterus, mucous membranes moist, TMs normal bilaterally, throat clear, neck supple, nontender, trachea midline. No drooling or trismus noted. No meningeal signs. No hot potato voice noted. Lungs: Clear to auscultation, breath sounds equal bilaterally, chest nontender. Heart: S1S2, regular rate and rhythm without overt murmur Abdomen: Soft, nondistended, generalized tenderness. Negative for masses or hepatosplenomegaly. Negative for costovertebral tenderness. Pelvis: Stable nontender. Genitourinary: Deferred. Rectal: Tone intact. Hemoccult negative. Skin: Intact, warm, dry. No lesions or rashes noted. Extremities: Atraumatic, negative for cords or calf pain. Neurovascular unremarkable. Neuro: Awake, alert, oriented. Cranial nerves II through XII unremarkable. Cerebellum unremarkable. Motor and sensory unremarkable throughout. Exam nonfocal. Notes: Dr. Curtis verbally involved in patients care. Patient states he typically has improvement with is vomiting if he is given "what he usually gets" when he comes to the ER. Patient typically receives Haldol 5mg and Benadryl 50. On initial exam, patient is hypertensive and his heart rate is 130s. His last episode of vomiting was in the EMS. Shortly after arrival to the ED, he does have bright red bloody emesis that I have seen on exam. 2 large bore IVs initiated. Patient is protecting airway. Protonix and Octreotide initiated. Type/cross/screen for 2 Upacked RBC Patient was seen and evaluated earlier today in the ED. At that time (11:30 this morning), Hcg was 11.1. Hcg at this time is 8.3. Hematemesis has improved with Zofran and no longer continuous vomiting; periodic vomiting (approximately 10-15 minute apart) but protecting airway. I did call and speak to Dr. Conti, [facility], and thoroughly discussed patients case. Accepting of transfer. Flight arranged. Flight anticipated to arrive in 15-20 minutes. Lab is still crossing patients blood for transfusion. Corrected calcium-6.9 mg/dL; Hemoccult negative Flight at bedside-blood type and cross has not been completed prior to flight arrival. Updated vitals with flight at bedside 180/90s, HR 90 otherwise remains vitally stable. He remains protecting his airway, alert, orientated with hematemesis every 10 minutes. Discharged to flight in stable but critical condition. Diagnostics: EKG, CBC, CMP, Lipase, Type and Screen/Cross, Magnesium Therapeutics: 2 large bore IVs, NS, 2URBC, Octreotide, Protonix, Dilaudid, Haldol, Benadryl, Calcium gluconate, K-rider, Labetalol Impression: Hematemesis Active gastrointestinal bleeding Hypertension Hypokalemia Hypocalcemia Plan: Transfer to [facility] Dr. Conti via flight Critical care time is exclusive of billable procedures and the time to perform these procedures. Critical care time was used to prevent vital system organ failure and deterioration. Critical care time includes bedside management and high-complexity decision making requiring my highest level of mental preparednes s and attention. This includes reviewing the patient's chart and prior medical records, ordering and reviewing interpreting laboratory studies and imaging results, interpretation of vital signs and EKG, pulse oximetry, and discussion with the admitting team along with EMS and nursing staff. Patient presented with multiple critical lab values that required immediate intervention, and immediate transfer to a higher level facility for additional close monitoring, interventions, and continuation of treatment CC Time: 60 minutes Definitive disposition and diagnosis as appropriate pending reevaluation and review of above. abdomen Pain Score (Numeric/FACES): 10 - Related Data Allergies Allergy/AdvReac Type Severity Reaction Status Date / Time shrimp Allergy Severe Swelling Verified 11/24/20 17:47 iodine Allergy Unknown Anaphylactic Verified 11/24/20 17:47 Shock Penicillins Allergy Unknown Anaphylactic Verified 11/24/20 17:47 Shock shellfish derived Allergy Anaphylactic Verified 11/24/20 17:47 Shock gluten Allergy Severe Muscle Uncoded 11/24/20 17:47 Aches Home Meds: Home Meds Metoprolol Succinate 200 mg PO DAILY 09/29/19 [History] atorvaSTATin [Lipitor] 80 mg PO BEDTIME 09/29/19 [History] Insulin Aspart [NovoLOG] 0 unit SUBCUT .UP TO 60 UN DAILY 09/30/19 [History] Metoclopramide [Reglan] 5 mg PO TIDAC #90 tablet 10/10/19 [Rx] Aspirin [Adult Low Dose Aspirin EC] 81 mg PO DAILY 12/07/19 [History] Enalapril Maleate 20 mg PO DAILY 12/07/19 [History] Insulin Glarg,Human.Rec.Analog [Lantus] 15 mg SUBCUT BEDTIME 12/07/19 [History] Iron Ag,Ps/C/Fa6/B12/Zn/SA/Sto [Niferex Tablet] 150 mg PO BID 12/07/19 [History] amLODIPine Besylate [Amlodipine Besylate] 10 mg PO DAILY 12/07/19 [History] hydroCHLOROthiazide [Hydrochlorothiazide] 25 mg PO DAILY 12/07/19 [History] hydrALAZINE [Apresoline] 50 mg PO Q8H #60 tablet 07/14/20 [Rx] Furosemide 40 mg PO DAILY 10/30/20 [History] Insulin Aspart [NovoLOG] ASDIRECTED 10/30/20 [History] Ondansetron [Zofran ODT] 4 mg PO Q8H PRN 10/30/20 [History] Pantoprazole Sodium [Protonix] 40 mg PO BID 10/30/20 [History] diphenhydrAMINE [Benadryl] 50 mg PO BEDTIME PRN 10/30/20 [History] Sulfamethoxazole/Trimethoprim [Bactrim 400-80 MG] 1 each PO BID 7 Days #14 tablet 11/13/20 [Rx] Non-Formulary Medication [NF Drug] 1 each PO BID 11/17/20 [History] Doxazosin [Cardura] 8 mg PO BEDTIME 11/18/20 [History] Past Medical History - Past Health History Medical/Surgical History: Denies Medical/Surgical History HEENT History: Reports: Impaired Vision Other HEENT History: blind right eye Cardiovascular History: Reports: Hypertension Respiratory History: Reports: None Gastrointestinal History: Reports: Gastritis, GERD, Hiatal Hernia, Other (See Below) Other Gastrointestinal History: h/o gastric ulcers, h/o hiatal hernia; gastroparesis Genitourinary History: Reports: Chronic Renal Insuffiency, Diabetic Nephropathy Musculoskeletal History: Reports: Amputation Other Musculoskeletal History: RLE Neurological History: Reports: Neuropathy, Peripheral Other Neuro History: stroke Psychiatric History: Reports: Anxiety Endocrine/Metabolic History: Reports: Diabetes, Type I Other Endocrine/Metabolic History: brittle diabetic. 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 Asphalt Raker: None Hematologic History: Reports: Anemia Immunologic History: Reports: None Oncologic (Cancer) History: Reports: None Dermatologic History: Reports: Other (See Below) Other Dermatologic History: diabetic foot ulcers - Infectious Disease History Infectious Disease History: Reports: Chicken Pox, MRSA, Novel Coronavirus Other Infectious Disease History: Covid-19 - Past Surgical History Head Surgeries/Procedures: Reports: None HEENT Surgical History: Reports: None Cardiovascular Surgical History: Reports: None Respiratory Surgical History: Reports: None GI Surgical History: Reports: None Male Surgical History: Reports: None Other Male Surgeries/Procedures: AV fistula, L forearm Endocrine Surgical History: Reports: None Neurological Surgical History: Reports: None Musculoskeletal Surgical History: Reports: Amputation Other Musculoskeletal Surgeries/Procedures:: right BKA Oncologic Surgical History: Reports: None Dermatological Surgical History: Reports: None Social & Family History - Family History Family Medical History: No Pertinent Family History Cardiac: Reports: High Cholesterol, Hypertension OBGYN: Reports: Neurological: Reports: None Psychiatric: Reports: Anxiety - Tobacco Use Tobacco Use Status *Q: Never Tobacco User Second Hand Smoke Exposure: No - Caffeine Use Caffeine Use: Reports: None Other Caffeine Use: daily Caffeine Use Comment: patient is uncooperated - Recreational Drug Use Recreational Drug Use: Yes Recreational Drug Type: Reports: Marijuana/Hashish Recreational Drug Last Use: "2weeks ago" - Living Situation & Occupation Living situation: Reports: Single Occupation: Employed (Currently unemployed.) ED ROS GENERAL - Review of Systems Review Of Systems: Comprehensive ROS is negative, except as noted in HPI. ED EXAM, GENERAL - Physical Exam Exam: See Below (see dictation) Course - Vital Signs Last Recorded V/S: Last Vital Signs Temp 97.2 F 11/24/20 17:15 Pulse 102 H 11/24/20 18:20 Resp 19 11/24/20 18:20 BP 205/116 H 11/24/20 18:20 Pulse Ox 96 11/24/20 18:20 - Orders/Labs/Meds Orders: Active Orders 24 hr Category Date Time Status EKG Documentation Completion [RC] STAT Care 11/24/20 18:35 Active Verify Patient Consent Obtain [RC] ASDIRECTED Care 11/24/20 17:59 Active RED BLOOD CELLS LP [BBK] Stat Lab 11/24/20 18:20 Results TYPE AND SCREEN [BBK] Stat Lab 11/24/20 18:20 Results Potassium Chloride Riders [KCL in Water 40 MEQ/100 ML] Med 11/24/20 18:37 Active 40 meq Premix Bag 1 bag IV ONETIME Sodium Chloride 0.9% [Saline Flush] Med 11/24/20 17:12 Active 10 ml FLUSH ASDIRECTED PRN Sodium Chloride 0.9% [Saline Flush] Med 11/24/20 17:12 Active 2.5 ml FLUSH ASDIRECTED PRN Saline Lock Insert [OM.PC] Stat Ot 11/24/20 17:12 Ordered Transfuse Red Blood Cells [COMM] Stat Ot 11/24/20 17:59 Ordered Medication Orders Potassium Chloride 40 meq/ (Premix) 100 mls @ 25 mls/hr IV ONETIME ONE Stop: 11/24/20 22:36 Last Admin: 11/24/20 19:03 Dose: Not Given Documented by: PRIMITIVO Sodium Chloride (Sodium Chloride 0.9% 10 Ml Syringe) 10 ml FLUSH ASDIRECTED PRN PRN Reason: Keep Vein Open Last Admin: 11/24/20 17:32 Dose: 10 ml Documented by: ANNE Sodium Chloride (Sodium Chloride 0.9% 2.5 Ml Syringe) 2.5 ml FLUSH ASDIRECTED PRN PRN Reason: Keep Vein Open Last Admin: 11/24/20 17:32 Dose: 2.5 ml Documented by: ANNE Labs: Laboratory Tests 11/24/20 11/24/20 11/24/20 Range/Units 17:41 17:41 17:41 WBC 10.45 (4.0-11.0) K/uL RBC 3.73 L (4.50-5.90) M/uL Hgb 8.3 L (13.0-17.0) g/dL Hct 25.5 L (38.0-50.0) % MCV 68.4 L (80.0-98.0) fL MCH 22.3 L (27.0-32.0) pg MCHC 32.5 (31.0-37.0) g/dL RDW Std Deviation 39.8 (28.0-62.0) fl RDW Coeff of Dania 16 H (11.0-15.0) % Plt Count 281 (150-400) K/uL MPV 9.60 (7.40-12.00) fL Neut % (Auto) 79.0 (48.0-80.0) % Lymph % (Auto) 14.7 L (16.0-40.0) % [place] % (Auto) 5.6 (0.0-15.0) % Eos % (Auto) 0.4 (0.0-7.0) % Baso % (Auto) 0.3 (0.0-1.5) % Neut # (Auto) 8.3 H (1.4-5.7) K/uL Lymph # (Auto) 1.5 (0.6-2.4) K/uL [place] # (Auto) 0.6 (0.0-0.8) K/uL Eos # (Auto) 0.0 (0.0-0.7) K/uL Baso # (Auto) 0.0 (0.0-0.1) K/uL Nucleated RBC % 0.0 /100WBC Nucleated RBCs # 0 K/uL Sodium 145 (136-148) mmol/L Potassium 2.8 L (3.5-5.1) mmol/L Chloride 109 H (98-107) mmol/L Carbon Dioxide 17.1 L (21.0-32.0) mmol/L BUN 42 H (7.0-18.0) mg/dL Creatinine 4.2 H (0.8-1.3) mg/dL Est Cr Clr Drug Dosing TNP Estimated GFR (MDRD) 19.8 ml/min Glucose 87 (74-106) mg/dL Calcium 5.9 L (8.5-10.1) mg/dL Magnesium 1.4 L (1.8-2.4) mg/dL Total Bilirubin 0.2 (0.2-1.0) mg/dL AST 31 (15-37) IU/L ALT 23 (14-63) IU/L Alkaline Phosphatase 63 (46-116) U/L Total Protein 4.9 L (6.4-8.2) g/dL Albumin 2.1 L (3.4-5.0) g/dL Globulin 2.8 (2.6-4.0) g/dL Albumin/Globulin Ratio 0.8 L (0.9-1.6) Lipase 27 L (73-393) U/L Blood Type Antibody Screen Crossmatch 11/24/20 Range/Units 18:20 WBC (4.0-11.0) K/uL RBC (4.50-5.90) M/uL Hgb (13.0-17.0) g/dL Hct (38.0-50.0) % MCV (80.0-98.0) fL MCH (27.0-32.0) pg MCHC (31.0-37.0) g/dL RDW Std Deviation (28.0-62.0) fl RDW Coeff of Dania (11.0-15.0) % Plt Count (150-400) K/uL MPV (7.40-12.00) fL Neut % (Auto) (48.0-80.0) % Lymph % (Auto) (16.0-40.0) % [place] % (Auto) (0.0-15.0) % Eos % (Auto) (0.0-7.0) % Baso % (Auto) (0.0-1.5) % Neut # (Auto) (1.4-5.7) K/uL Lymph # (Auto) (0.6-2.4) K/uL [place] # (Auto) (0.0-0.8) K/uL Eos # (Auto) (0.0-0.7) K/uL Baso # (Auto) (0.0-0.1) K/uL Nucleated RBC % /100WBC Nucleated RBCs # K/uL Sodium (136-148) mmol/L Potassium (3.5-5.1) mmol/L Chloride (98-107) mmol/L Carbon Dioxide (21.0-32.0) mmol/L BUN (7.0-18.0) mg/dL Creatinine (0.8-1.3) mg/dL Est Cr Clr Drug Dosing Estimated GFR (MDRD) ml/min Glucose (74-106) mg/dL Calcium (8.5-10.1) mg/dL Magnesium (1.8-2.4) mg/dL Total Bilirubin (0.2-1.0) mg/dL AST (15-37) IU/L ALT (14-63) IU/L Alkaline Phosphatase (46-116) U/L Total Protein (6.4-8.2) g/dL Albumin (3.4-5.0) g/dL Globulin (2.6-4.0) g/dL Albumin/Globulin Ratio (0.9-1.6) Lipase (73-393) U/L Blood Type O POSITIVE Antibody Screen NEGATIVE Crossmatch See Detail Meds: Medications Generic Name Dose Route Start Last Admin Trade Name Freq PRN Reason Stop Dose Admin Potassium Chloride 40 meq/ 100 mls @ 25 mls/hr 11/24/20 18:37 11/24/20 19:03 Premix IV 11/24/20 22:36 Not Given ONETIME ONE Sodium Chloride 10 ml 11/24/20 17:12 11/24/20 17:32 Sodium Chloride 0.9% 10 Ml Syringe FLUSH 10 ml ASDIRECTED PRN Administration Keep Vein Open Sodium Chloride 2.5 ml 11/24/20 17:12 11/24/20 17:32 Sodium Chloride 0.9% 2.5 Ml Syringe FLUSH 2.5 ml ASDIRECTED PRN Administration Keep Vein Open Discontinued Medications Generic Name Dose Route Start Last Admin Trade Name Lynn PRN Reason Stop Dose Admin Calcium Gluconate 1 gm 11/24/20 18:37 11/24/20 18:55 Calcium Gluconate 10% 1 Gm/10 Ml Sdv IVPUSH 11/24/20 18:38 1 gm ONETIME ONE Administration Diphenhydramine HCl 50 mg 11/24/20 17:14 11/24/20 17:31 Diphenhydramine 50 Mg/Ml Sdv IVPUSH 11/24/20 17:15 50 mg ONETIME ONE Administration Haloperidol Lactate 5 mg 11/24/20 17:13 11/24/20 17:32 Haloperidol Lactate 5 Mg/Ml Sdv IM 11/24/20 17:14 Not Given ONETIME ONE Haloperidol Lactate 5 mg 11/24/20 17:14 11/24/20 17:31 Haloperidol Lactate 5 Mg/Ml Sdv IM 11/24/20 17:15 5 mg ONETIME ONE Administration Hydromorphone HCl 1 mg 11/24/20 18:13 11/24/20 19:22 Hydromorphone 1 Mg/Ml Syringe IVPUSH 11/24/20 18:14 Not Given ONETIME ONE Hydromorphone HCl 0.5 mg 11/24/20 18:13 11/24/20 18:21 Hydromorphone 2 Mg/Ml Syringe IVPUSH 11/24/20 18:14 0.5 mg ONETIME ONE Administration Sodium Chloride 1,000 mls @ 999 mls/hr 11/24/20 17:12 11/24/20 17:31 Normal Saline IV 11/24/20 18:12 999 mls/hr BOLUS ONE Administration Pantoprazole Sodium 80 mg/ 20 mls @ 420 mls/hr 11/24/20 17:26 11/24/20 17:31 Sodium Chloride IVPUSH 11/24/20 17:28 420 mls/hr ONETIME ONE Administration Labetalol HCl 20 mg 11/24/20 18:48 11/24/20 18:53 Labetalol 100 Mg/20 Ml Mdv IVPUSH 11/24/20 18:49 20 mg ONETIME ONE Administration Protocol Labetalol HCl Confirm 11/24/20 18:49 11/24/20 19:03 Labetalol 100 Mg/20 Ml Mdv Administered 11/24/20 18:50 Not Given Dose 100 mg .ROUTE .STK-MED ONE Octreotide Acetate 50 mcg 11/24/20 18:34 11/24/20 18:37 Octreotide 100 Mcg/1 Ml Amp IV 11/24/20 18:35 50 mcg ONETIME ONE Administration Ondansetron HCl 4 mg 11/24/20 17:12 11/24/20 17:31 Ondansetron 4 Mg/2 Ml Sdv IVPUSH 11/24/20 17:13 4 mg ONETIME ONE Administration Ondansetron HCl Confirm 11/24/20 18:49 11/24/20 18:53 Ondansetron 4 Mg/2 Ml Sdv Administered 11/24/20 18:50 4 mg Dose Administration 4 mg .ROUTE .STK-MED ONE Ondansetron HCl 4 mg 11/24/20 18:50 Ondansetron 4 Mg/2 Ml Sdv IVPUSH 11/24/20 18:51 ONETIME ONE Departure - Departure Time of Disposition: 18:33 Disposition: DC/Tfer to Acute Hospital 02 Clinical Impression: Hypokalemia, Hypocalcemia, Nonadherence to medication Hematemesis Qualifiers: Nausea presence: with nausea Qualified Code(s): K92.0 - Hematemesis GI bleeding Qualifiers: GI bleed type/associated pathology: unspecified gastrointestinal hemorrhage type Qualified Code(s): K92.2 - Gastrointestinal hemorrhage, unspecified Hypertension Qualifiers: Hypertension type: essential hypertension Qualified Code(s): I10 - Essential (primary) hypertension - Discharge Information Referrals: Fitz Infante MD [Primary Care Provider] - Forms: ED Department Discharge Sepsis Event Note (ED) - Evaluation Sepsis Screening Result: No Definite Risk - Focused Exam Vital Signs: Vital Signs Temp Pulse Resp BP Pulse Ox 11/24/20 18:20 102 H 19 205/116 H 96 11/24/20 17:15 97.2 F 134 H 22 H 214/117 H 100 - My Orders Last 24 Hours: My Active Orders 11/24/20 17:12 Sodium Chloride 0.9% [Saline Flush] 10 ml FLUSH ASDIRECTED PRN Sodium Chloride 0.9% [Saline Flush] 2.5 ml FLUSH ASDIRECTED PRN Saline Lock Insert [OM.PC] Stat 11/24/20 17:59 Verify Patient Consent Obtain [RC] ASDIRECTED Transfuse Red Blood Cells [COMM] Stat 11/24/20 18:20 RED BLOOD CELLS LP [BBK] Stat TYPE AND SCREEN [BBK] Stat 11/24/20 18:35 EKG Documentation Completion [RC] STAT 11/24/20 18:37 Potassium Chloride Riders [KCL in Water 40 MEQ/100 ML] 40 meq Premix Bag 1 bag IV ONETIME - Assessment/Plan Last 24 Hours: My Active Orders 11/24/20 17:12 Sodium Chloride 0.9% [Saline Flush] 10 ml FLUSH ASDIRECTED PRN Sodium Chloride 0.9% [Saline Flush] 2.5 ml FLUSH ASDIRECTED PRN Saline Lock Insert [OM.PC] Stat 11/24/20 17:59 Verify Patient Consent Obtain [RC] ASDIRECTED Transfuse Red Blood Cells [COMM] Stat 11/24/20 18:20 RED BLOOD CELLS LP [BBK] Stat TYPE AND SCREEN [BBK] Stat 11/24/20 18:35 EKG Documentation Completion [RC] STAT 11/24/20 18:37 Potassium Chloride Riders [KCL in Water 40 MEQ/100 ML] 40 meq Premix Bag 1 bag IV ONETIME
[2020-11-24] MEDS ORDERED: Octreotide 100 MCG/1 ML Amp IV ONE (18:34)
[2020-11-24] MEDS ORDERED: Calcium Gluconate 10% 1 GM/10 ML SDV IVPUSH ONE (18:37)
[2020-11-24] MEDS ORDERED: Potassium Chloride Riders 40 MEQ in Premix Bag 1 BAG IV ONE (18:37)
[2020-11-24] MEDS ORDERED: Labetalol 100 MG/20 ML MDV IVPUSH ONE ×2 (18:48→18:52)
[2020-11-24] MEDS ORDERED: Labetalol 100 MG/20 ML MDV ONE (18:49)
[2020-11-24] MEDS ORDERED: Ondansetron 4 MG/2 ML SDV ONE (18:49)
== END 2020-11-24 19:05 ==
LOC: MW.ED 17:10
DX: K92.0 Hematemesis (principal); I10 Essential (primary) hypertension; E87.6 Hypokalemia; E83.51 Hypocalcemia; I12.9 Hypertensive chronic kidney disease with stage 1 through stage 4 chronic kidney disease, or unspecified chronic kidney disease; N18.9 Chronic kidney disease, unspecified; E10.42 Type 1 diabetes mellitus with diabetic polyneuropathy; E10.22 Type 1 diabetes mellitus with diabetic chronic kidney disease; E10.21 Type 1 diabetes mellitus with diabetic nephropathy; Z91.14 Patient's other noncompliance with medication regimen; Z91.013 Allergy to seafood; Z91.048 Other nonmedicinal substance allergy status; Z88.0 Allergy status to penicillin; Z79.82 Long term (current) use of aspirin; Z79.899 Other long term (current) drug therapy
CPT/HCPCS: 36415; 74018; 80053; 81001; 83690; 83735; 85025; 86850; 86900; 86901; 86920; 86921; 86922; 93005; 96374; 96375; 96376; 99285; C9113; J0610; J1170; J1200; J1630; J1885; J2354; J2405; J3480; J3490; J7030; 99291

== ENCOUNTER 2020-12-15 13:09 | Emergency (ER) | payer MEDICARE, MEDICAID ==
[2020-12-15] MEDS ORDERED: Tetracaine HCl/PF 0.5% 4 ML Bottle EYEBOTH ONE (13:25)
--- NOTE | 2020-12-15 14:22 | PCM.SN.2 ---
- Free Text/Narrative Note: Posterior contour of the eye does not show any obvious large separation of retina or choroid from the posterior elements using the portable ultrasound.
--- NOTE | 2020-12-15 14:29 | EDM.PDOC ---
ED HPI GENERAL MEDICAL PROBLEM - General Chief Complaint: General Stated Complaint: FLOATER IN RT EYE Time Seen by Provider: 12/15/20 13:22 Source of Information: Reports: Patient History Limitations: Reports: No Limitations - History of Present Illness INITIAL COMMENTS - FREE TEXT/NARRATIVE: HISTORY AND PHYSICAL: History of present illness: Patient is a 35-year-old male who presents emergency room today with concern of a new left eye floater that he noticed in the middle of the night. Patient states he got up to go to the bathroom and noticed he has a new floater of his l eft eye. 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 Darling, staff physical therapist, every 6 weeks. Patient states he also gets injections into his left eye by Dr. Darling q 6 weeks. Patient states that he has an appointment on January [address] Darling Patient states when he woke up in the middle of the night, he noticed a small dot with a little hair-like substance going through the dot of his left eye. Denies visual field loss or vision loss. Patient states when he moves his eye around, the dot moves and follows with it. Denies any head/eye injury or trauma or foreign body. Patient denies fever, chills, chest pain, shortness of breath, or cough. Denies headache, neck stiff ness, change in vision, syncope, or near syncope. Denies nausea, vomiting, abdominal pain, diarrhea, constipation, or dysuria. Has not noted any blood in urine or stool. Patient has been eating and drinking appropriately. Review of systems: As per history of present illness and below otherwise all systems reviewed and negative. Past medical history: As per history of present illness and as reviewed below otherwise noncontributory. Surgical history: As per history of present illness and as reviewed below otherwise noncontributory. Social history: See social history for further information Family history: As per history of present illness and as reviewed below otherwise noncontributory. Physical exam: General: Patient is alert, oriented, and in no acute distress. Patient sitting comfortably on exam table. Vitals stable and reviewed by me. HEENT: Visual acuity intact with all visual kitchen intact. Tonopen pressure of left eye 10. EOMS intact without pain or difficulty. Fluroscene stain performed without evidence of corneal abrasion/ulceration. Bilateral upper and lower lids everted without sign of foreign body. Negative for corneal opacity, hyphema, or hypopyon. Otherwise, atraumatic, normocephalic, pupils equal and reactive bilaterally, negative for conjunctival pallor or scleral icterus, mucous membranes moist, TMs normal bilaterally, throat clear, neck supple, nontender, trachea midline. No drooling or trismus noted. No meningeal signs. No hot potato voice noted. Lungs: Clear to auscultation, breath sounds equal bilaterally, chest nontender. Heart: S1S2, regular rate and rhythm without overt murmur Abdomen: Soft, nondistended, nontender. Negative for masses or hepatosplenomegaly. Negative for costovertebral tenderness. Pelvis: Stable nontender. Genitourinary: Deferred. Rectal: Deferred. Skin: Intact, warm, dry. No lesions or rashes noted. Extremities: Atraumatic, negative for cords or calf pain. Neurovascular unremarkable. Neuro: Awake, alert, oriented. Cranial nerves II through XII unremarkable. Cerebellum unremarkable. Motor and sensory unremarkable throughout. Exam nonfocal. Notes: Dr. Curtis directly involved in patient care. Bedside US of the eye performed by Dr. Curtis. See his dictation for specific results-no sign of acute detachment Strict return precautions thoroughly discussed with patient. Discussed importance for follow-up with Dr. Darling. Instructed patient to call Dr. Doss's clinic Thursday. Voices understanding and is agreeable to plan of care. Denies any further questions or concerns at this time. Diagnostics: Eye US (Performed by Dr. Curtis-see his formal dictation for US interpretation) Therapeutics: Tetracaine ophthalmic Prescription: None Impression: Eye floater, left Plan: 1. Follow up with Dr. Darling as discussed. Call his clinic Thursday morning as discussed. Return to the ED as needed and as discussed. Definitive disposition and diagnosis as appropriate pending reevaluation and review of above. Headache Pain Score (Numeric/FACES): 6 - Related Data Allergies Allergy/AdvReac Type Severity Reaction Status Date / Time shrimp Allergy Severe Swelling Verified 12/15/20 13:20 iodine Allergy Unknown Anaphylactic Verified 12/15/20 13:20 Shock Penicillins Allergy Unknown Anaphylactic Verified 12/15/20 13:20 Shock shellfish derived Allergy Anaphylactic Verified 12/15/20 13:20 Shock gluten Allergy Severe Muscle Uncoded 12/15/20 13:20 Aches Home Meds: Home Meds Metoprolol Succinate 200 mg PO DAILY 09/29/19 [History] atorvaSTATin [Lipitor] 80 mg PO BEDTIME 09/29/19 [History] Insulin Aspart [NovoLOG] 0 unit SUBCUT .UP TO 60 UN DAILY 09/30/19 [History] Metoclopramide [Reglan] 5 mg PO TIDAC #90 tablet 10/10/19 [Rx] Aspirin [Adult Low Dose Aspirin EC] 81 mg PO DAILY 12/07/19 [History] Enalapril Maleate 20 mg PO DAILY 12/07/19 [History] Insulin Glarg,Human.Rec.Analog [Lantus] 15 mg SUBCUT BEDTIME 12/07/19 [History] Iron Ag,Ps/C/Fa6/B12/Zn/SA/Sto [Niferex Tablet] 150 mg PO BID 12/07/19 [History] amLODIPine Besylate [Amlodipine Besylate] 10 mg PO DAILY 12/07/19 [History] hydroCHLOROthiazide [Hydrochlorothiazide] 25 mg PO DAILY 12/07/19 [History] hydrALAZINE [Apresoline] 50 mg PO Q8H #60 tablet 07/14/20 [Rx] Furosemide 40 mg PO DAILY 10/30/20 [History] Insulin Aspart [NovoLOG] ASDIRECTED 10/30/20 [History] Ondansetron [Zofran ODT] 4 mg PO Q8H PRN 10/30/20 [History] Pantoprazole Sodium [Protonix] 40 mg PO BID 10/30/20 [History] diphenhydrAMINE [Benadryl] 50 mg PO BEDTIME PRN 10/30/20 [History] Sulfamethoxazole/Trimethoprim [Bactrim 400-80 MG] 1 each PO BID 7 Days #14 tablet 11/13/20 [Rx] Non-Formulary Medication [NF Drug] 1 each PO BID 11/17/20 [History] Doxazosin [Cardura] 8 mg PO BEDTIME 11/18/20 [History] Past Medical History - Past Health History Medical/Surgical History: Denies Medical/Surgical History HEENT History: Reports: Impaired Vision Other HEENT History: blind right eye Cardiovascular History: Reports: Hypertension Respiratory History: Reports: None Gastrointestinal History: Reports: Gastritis, GERD, Hiatal Hernia, Other (See Below) Other Gastrointestinal History: h/o gastric ulcers, h/o hiatal hernia; gastroparesis Genitourinary History: Reports: Chronic Renal Insuffiency, Diabetic Nephropathy Musculoskeletal History: Reports: Amputation Other Musculoskeletal History: RLE Neurological History: Reports: Neuropathy, Peripheral Other Neuro History: stroke Psychiatric History: Reports: Anxiety Endocrine/Metabolic History: Reports: Diabetes, Type I Other Endocrine/Metabolic History: brittle diabetic. 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 Dispensing Operator: None Hematologic History: Reports: Anemia Immunologic History: Reports: None Oncologic (Cancer) History: Reports: None Dermatologic History: Reports: Other (See Below) Other Dermatologic History: diabetic foot ulcers - Infectious Disease History Infectious Disease History: Reports: Chicken Pox, MRSA, Novel Coronavirus Other Infectious Disease History: Covid-19 - Past Surgical History Head Surgeries/Procedures: Reports: None HEENT Surgical History: Reports: None Cardiovascular Surgical History: Reports: None Respiratory Surgical History: Reports: None GI Surgical History: Reports: None Male Surgical History: Reports: None Other Male Surgeries/Procedures: AV fistula, L forearm Endocrine Surgical History: Reports: None Neurological Surgical History: Reports: None Musculoskeletal Surgical History: Reports: Amputation Other Musculoskeletal Surgeries/Procedures:: right BKA Oncologic Surgical History: Reports: None Dermatological Surgical History: Reports: None Social & Family History - Family History Family Medical History: No Pertinent Family History Cardiac: Reports: High Cholesterol, Hypertension OBGYN: Reports: Neurological: Reports: None Psychiatric: Reports: Anxiety - Tobacco Use Tobacco Use Status *Q: Never Tobacco User - Caffeine Use Caffeine Use: Reports: None Other Caffeine Use: daily Caffeine Use Comment: patient is uncooperated - Recreational Drug Use Recreational Drug Use: No - Living Situation & Occupation Living situation: Reports: Single Occupation: Employed (Currently unemployed.) ED ROS GENERAL - Review of Systems Review Of Systems: Comprehensive ROS is negative, except as noted in HPI. ED EXAM, GENERAL - Physical Exam Exam: See Below (see dictation) Course - Vital Signs Last Recorded V/S: Last Vital Signs Temp 97 F 12/15/20 13:22 Pulse 88 12/15/20 13:22 Resp 16 12/15/20 13:22 BP 129/78 12/15/20 13:22 Pulse Ox 98 12/15/20 13:22 - Orders/Labs/Meds Meds: Medications Discontinued Medications Generic Name Dose Route Start Last Admin Trade Name Lynn PRN Reason Stop Dose Admin Tetracaine HCl 2 ml 12/15/20 13:25 12/15/20 13:31 Tetracaine Hcl/Pf 0.5% 4 Ml Bottle EYEBOTH 12/15/20 13:26 2 ml ASDIRECTED ONE Administration Departure - Departure Time of Disposition: 14:20 Disposition: Home, Self-Care 01 Clinical Impression: Vitreous floaters of left eye - Discharge Information Referrals: PCP,None [Primary Care Provider] - Additional Instructions: The following information is given to patients seen in the emergency department who are being discharged to home. This information is to outline your options for follow-up care. We provide all patients seen in our emergency department with a follow-up referral. The need for follow-up, as well as the timing and circumstances, are variable depending upon the specifics of your emergency department visit. If you don't have a primary care physician on staff, we will provide you with a referral. We always advise you to contact your personal physician following an emergency department visit to inform them of the circumstance of the visit and for follow-up with them and/or the need for any referrals to a consulting specialist. The emergency department will also refer you to a specialist when appropriate. This referral assures that you have the opportunity for follow-up care with a specialist. All of these measure are taken in an effort to provide you with optimal care, which includes your follow-up. Under all circumstances we always encourage you to contact your private physician who remains a resource for coordinating your care. When calling for follow-up care, please make the office aware that this follow-up is from your recent emergency room visit. If for any reason you are refused follow-up, please contact the [facility] Emergency Department at and asked to speak to the emergency department charge nurse. [facility], Ophthalmology, Dr. Darling [address] [place] [address] 1. Follow up with Dr. Darling as discussed. Call his clinic Thursday morning as discussed. Return to the ED as needed and as discussed. Sepsis Event Note (ED) - Evaluation Sepsis Screening Result: No Definite Risk - Focused Exam Vital Signs: Vital Signs Temp Pulse Resp BP Pulse Ox 12/15/20 13:22 97 F 88 16 129/78 98
[2020-12-15 14:32] VITALS: BP 183/107; PULSE 90
== END 2020-12-15 14:33 | disposition home or self-care (01) ==
LOC: MW.ED 13:09
DX: H43.392 Other vitreous opacities, left eye (principal); I12.9 Hypertensive chronic kidney disease with stage 1 through stage 4 chronic kidney disease, or unspecified chronic kidney disease; N18.9 Chronic kidney disease, unspecified; E10.42 Type 1 diabetes mellitus with diabetic polyneuropathy; G25.81 Restless legs syndrome; K21.9 Gastro-esophageal reflux disease without esophagitis; E10.21 Type 1 diabetes mellitus with diabetic nephropathy; Z91.018 Allergy to other foods; Z91.048 Other nonmedicinal substance allergy status; Z88.0 Allergy status to penicillin; Z79.82 Long term (current) use of aspirin; Z79.4 Long term (current) use of insulin; Z79.899 Other long term (current) drug therapy
CPT/HCPCS: 99282; 99283-25

== ENCOUNTER 2020-12-25 14:10 | Emergency (ER) | payer MEDICARE, MEDICAID ==
[2020-12-25] MEDS ORDERED: Ondansetron 4 MG/2 ML SDV IVPUSH ONE (14:23)
[2020-12-25] MEDS ORDERED: HYDROmorphone 1 MG/ML Syringe IVPUSH ONE (14:23)
[2020-12-25] MEDS ORDERED: Nitroglycerin 0.4 MG Tab.SL SL ONE (14:25)
--- NOTE | 2020-12-25 14:26 | EDM.PDOC ---
ED HPI GENERAL MEDICAL PROBLEM - General Chief Complaint: General Stated Complaint: HEADACHE Time Seen by Provider: 12/25/20 14:11 Source of Information: Reports: Patient History Limitations: Reports: No Limitations - History of Present Illness INITIAL COMMENTS - FREE TEXT/NARRATIVE: Patient is a 35-year-old male with multiple past medical history such as diabetes end-stage renal disease and hypertension. Patient comes in today for nausea vomiting shortness of breath diffuse pain and missing dialysis. Patient's been to the ER frequently in the past. Patient dates that he had a fistula placed in [place] and was supposed be set up with dialysis and has had problems finding a facility to help. Patient that he has had dialysis in the past few weeks and if this is never used has port in place. Patient that he has been having some vomiting as well. Patient also states that his sugars been high as he has been trying to control it as well. Patient denies any chest pain palpitations or other complaints. headache Pain Score (Numeric/FACES): 8 - Related Data Allergies Allergy/AdvReac Type Severity Reaction Status Date / Time shrimp Allergy Severe Swelling Verified 12/25/20 14:19 iodine Allergy Unknown Anaphylactic Verified 12/25/20 14:19 Shock Penicillins Allergy Unknown Anaphylactic Verified 12/25/20 14:19 Shock shellfish derived Allergy Anaphylactic Verified 12/25/20 14:19 Shock gluten Allergy Severe Muscle Uncoded 12/25/20 14:19 Aches Home Meds: Home Meds Metoprolol Succinate 200 mg PO DAILY 09/29/19 [History] atorvaSTATin [Lipitor] 80 mg PO BEDTIME 09/29/19 [History] Insulin Aspart [NovoLOG] 0 unit SUBCUT .UP TO 60 UN DAILY 09/30/19 [History] Metoclopramide [Reglan] 5 mg PO TIDAC #90 tablet 10/10/19 [Rx] Aspirin [Adult Low Dose Aspirin EC] 81 mg PO DAILY 12/07/19 [History] Enalapril Maleate 20 mg PO DAILY 12/07/19 [History] Insulin Glarg,Human.Rec.Analog [Lantus] 15 mg SUBCUT BEDTIME 12/07/19 [History] Iron Ag,Ps/C/Fa6/B12/Zn/SA/Sto [Niferex Tablet] 150 mg PO BID 12/07/19 [History] amLODIPine Besylate [Amlodipine Besylate] 10 mg PO DAILY 12/07/19 [History] hydroCHLOROthiazide [Hydrochlorothiazide] 25 mg PO DAILY 12/07/19 [History] hydrALAZINE [Apresoline] 50 mg PO Q8H #60 tablet 07/14/20 [Rx] Furosemide 40 mg PO DAILY 10/30/20 [History] Insulin Aspart [NovoLOG] ASDIRECTED 10/30/20 [History] Ondansetron [Zofran ODT] 4 mg PO Q8H PRN 10/30/20 [History] Pantoprazole Sodium [Protonix] 40 mg PO BID 10/30/20 [History] diphenhydrAMINE [Benadryl] 50 mg PO BEDTIME PRN 10/30/20 [History] Sulfamethoxazole/Trimethoprim [Bactrim 400-80 MG] 1 each PO BID 7 Days #14 tablet 11/13/20 [Rx] Non-Formulary Medication [NF Drug] 1 each PO BID 11/17/20 [History] Doxazosin [Cardura] 8 mg PO BEDTIME 11/18/20 [History] Past Medical History - Past Health History Medical/Surgical History: Denies Medical/Surgical History HEENT History: Reports: Impaired Vision Other HEENT History: blind right eye Cardiovascular History: Reports: Hypertension Respiratory History: Reports: None Gastrointestinal History: Reports: Gastritis, GERD, Hiatal Hernia, Other (See Below) Other Gastrointestinal History: h/o gastric ulcers, h/o hiatal hernia; gastroparesis Genitourinary History: Reports: Chronic Renal Insuffiency, Diabetic Nephropathy Musculoskeletal History: Reports: Amputation Other Musculoskeletal History: RLE Neurological History: Reports: Neuropathy, Peripheral Other Neuro History: stroke Psychiatric History: Reports: Anxiety Endocrine/Metabolic History: Reports: Diabetes, Type I Other Endocrine/Metabolic History: brittle diabetic. 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: None Hematologic History: Reports: Anemia Immunologic History: Reports: None Oncologic (Cancer) History: Reports: None Dermatologic History: Reports: Other (See Below) Other Dermatologic History: diabetic foot ulcers - Infectious Disease History Infectious Disease History: Reports: Chicken Pox, MRSA, Novel Coronavirus Other Infectious Disease History: Covid-19 - Past Surgical History Head Surgeries/Procedures: Reports: None HEENT Surgical History: Reports: None Cardiovascular Surgical History: Reports: None Respiratory Surgical History: Reports: None GI Surgical History: Reports: None Male Surgical History: Reports: None Other Male Surgeries/Procedures: AV fistula, L forearm Endocrine Surgical History: Reports: None Neurological Surgical History: Reports: None Musculoskeletal Surgical History: Reports: Amputation Other Musculoskeletal Surgeries/Procedures:: right BKA Oncologic Surgical History: Reports: None Dermatological Surgical History: Reports: None Social & Family History - Family History Family Medical History: No Pertinent Family History Cardiac: Reports: High Cholesterol, Hypertension OBGYN: Reports: Neurological: Reports: None Psychiatric: Reports: Anxiety - Tobacco Use Tobacco Use Status *Q: Unknown Ever Used Tobacco - Caffeine Use Caffeine Use: Reports: None Other Caffeine Use: daily Caffeine Use Comment: patient is uncooperated - Recreational Drug Use Recreational Drug Use: No - Living Situation & Occupation Living situation: Reports: Single Occupation: Employed (Currently unemployed.) ED ROS GENERAL - Review of Systems Review Of Systems: See Below Constitutional: Reports: No Symptoms HEENT: Reports: No Symptoms Respiratory: Reports: No Symptoms Cardiovascular: Reports: No Symptoms Endocrine: Reports: No Symptoms GI/Abdominal: Reports: Nausea, Vomiting : Reports: No Symptoms Musculoskeletal: Reports: No Symptoms Skin: Reports: No Symptoms Neurological: Reports: No Symptoms Psychiatric: Reports: No Symptoms Hematologic/Lymphatic: Reports: No Symptoms Immunologic: Reports: No Symptoms ED EXAM, GENERAL - Physical Exam Exam: See Below Exam Limited By: No Limitations General Appearance: Alert, WD/WN, Mild Distress Eye Exam: Bilateral Eye: EOMI, PERRL Respiratory/Chest: No Respiratory Distress, Lungs Clear Cardiovascular: Normal Peripheral Pulses, Regular Rate, Rhythm GI/Abdominal: Normal Bowel Sounds, Soft, Non-Tender Extremities: Normal Inspection, Normal Range of Motion Neurological: Alert, Oriented #1 Interpretation EKG Date: 12/25/20 Time: 14:34 Rhythm: Other (sinus tachy) Rate (Beats/Min): 100 ST-T: Normal Course - Vital Signs Last Recorded V/S: Last Vital Signs Temp 97.0 F 12/25/20 14:22 Pulse 96 12/25/20 16:10 Resp 17 12/25/20 16:10 BP 181/99 H 12/25/20 16:10 Pulse Ox 95 12/25/20 16:10 - Orders/Labs/Meds Orders: Active Orders 24 hr Category Date Time Status EKG Documentation Completion [RC] STAT Care 12/25/20 14:24 Active Labs: Laboratory Tests 12/25/20 12/25/20 Range/Units 14:25 14:25 WBC 8.84 (4.0-11.0) K/uL RBC 3.44 L (4.50-5.90) M/uL Hgb 7.7 L (13.0-17.0) g/dL Hct 23.8 L (38.0-50.0) % MCV 69.2 L (80.0-98.0) fL MCH 22.4 L (27.0-32.0) pg MCHC 32.4 (31.0-37.0) g/dL RDW Std Deviation 47.8 (28.0-62.0) fl RDW Coeff of Dania 19 H (11.0-15.0) % Plt Count 273 (150-400) K/uL MPV 9.70 (7.40-12.00) fL Neut % (Auto) 78.4 (48.0-80.0) % Lymph % (Auto) 11.5 L (16.0-40.0) % [place] % (Auto) 8.9 (0.0-15.0) % Eos % (Auto) 0.7 (0.0-7.0) % Baso % (Auto) 0.5 (0.0-1.5) % Neut # (Auto) 6.9 H (1.4-5.7) K/uL Lymph # (Auto) 1.0 (0.6-2.4) K/uL [place] # (Auto) 0.8 (0.0-0.8) K/uL Eos # (Auto) 0.1 (0.0-0.7) K/uL Baso # (Auto) 0.0 (0.0-0.1) K/uL Nucleated RBC % 0.0 /100WBC Nucleated RBCs # 0 K/uL Sodium 142 (136-148) mmol/L Potassium 4.4 (3.5-5.1) mmol/L Chloride 109 H (98-107) mmol/L Carbon Dioxide 19.3 L (21.0-32.0) mmol/L BUN 59 H (7.0-18.0) mg/dL Creatinine 7.8 H (0.8-1.3) mg/dL Est Cr Clr Drug Dosing 13.34 mL/min Estimated GFR (MDRD) 8.0 ml/min Glucose 121 H (74-106) mg/dL Calcium 7.6 L (8.5-10.1) mg/dL Phosphorus 5.7 H (2.6-4.7) mg/dL Magnesium 2.3 (1.8-2.4) mg/dL Total Bilirubin 0.2 (0.2-1.0) mg/dL AST 27 (15-37) IU/L ALT 27 (14-63) IU/L Alkaline Phosphatase 80 (46-116) U/L Creatine Kinase 1376 H (26-308) U/L Total Protein 6.3 L (6.4-8.2) g/dL Albumin 2.2 L (3.4-5.0) g/dL Globulin 4.1 H (2.6-4.0) g/dL Albumin/Globulin Ratio 0.5 L (0.9-1.6) Lipase 24 L (73-393) U/L Meds: Medications Discontinued Medications Generic Name Dose Route Start Last Admin Trade Name Freq PRN Reason Stop Dose Admin Calcium Gluconate 1 gm 12/25/20 15:46 12/25/20 16:00 Calcium Gluconate 10% 1 Gm/10 Ml Sdv IVPUSH 12/25/20 15:47 1 gm ONETIME ONE Administration Hydromorphone HCl 1 mg 12/25/20 14:23 12/25/20 14:34 Hydromorphone 1 Mg/Ml Syringe IVPUSH 12/25/20 14:24 1 mg ONETIME ONE Administration Nitroglycerin 0.4 mg 12/25/20 14:25 12/25/20 14:34 Nitroglycerin 0.4 Mg Tab.Sl SL 12/25/20 14:26 0.4 mg ONETIME ONE Administration Ondansetron HCl 4 mg 12/25/20 14:23 12/25/20 14:34 Ondansetron 4 Mg/2 Ml Sdv IVPUSH 12/25/20 14:24 4 mg ONETIME ONE Administration - Re-Assessments/Exams Free Text/Narrative Re-Assessment/Exam: 12/25/20 16:35 Patient labs reviewed potassium is normal calcium is low we will replete calcium. We spoke to post adoption coordinator at my not Dr. Carrion who states that patient can be added to his dialysis facility and [facility] is about 4 hours away from here we started the patient the distance he states that he may not be able to make it every week or most he may become once a week this is the only option we have right now for dialysis for patient. I spoke to the dialysis team here in [place] as well as in [place] and facilities are filled. Patient does not require emergent dialysis patient was given strict return precautions in the meantime until he can get set up. Departure - Departure Time of Disposition: 16:36 Disposition: Home, Self-Care 01 Condition: Good Clinical Impression: Headache - Discharge Information *PRESCRIPTION DRUG MONITORING PROGRAM REVIEWED*: Not Applicable *COPY OF PRESCRIPTION DRUG MONITORING REPORT IN PATIENT IVELISSE: Not Applicable Instructions: General Headache Without Cause, [id number] Forms: ED Department Discharge Additional Instructions: The following information is given to patients seen in the emergency department who are being discharged to home. This information is to outline your options for follow-up care. We provide all patients seen in our emergency department with a follow-up referral. The need for follow-up, as well as the timing and circumstances, are variable depending upon the specifics of your emergency department visit. If you don't have a primary care physician on staff, we will provide you with a referral. We always advise you to contact your personal physician following an emergency department visit to inform them of the circumstance of the visit and for follow-up with them and/or the need for any referrals to a consulting specialist. The emergency department will also refer you to a specialist when appropriate. This referral assures that you have the opportunity for follow-up care with a specialist. All of these measure are taken in an effort to provide you with optimal care, which includes your follow-up. Under all circumstances we always encourage you to contact your private physician who remains a resource for coordinating your care. When calling for fo llow-up care, please make the office aware that this follow-up is from your recent emergency room visit. If for any reason you are refused follow-up, please contact the [facility] Emergency Department at and asked to speak to the emergency department charge nurse. Please follow up with your primary care physician. If you do not have a primary care physician, see below: [facility] [address] [place], [place] [id number] [facility] [address] [place] [address] We have called the renal doctors Dr. Carrion in [place] able to set you up with dialysis in [place] I provided the post adoption coordinator which your phone number and he will call you to set this up. If you have any difficulty getting air like you are not producing any urine feeling short of breath or other complaints please return to the ED immediately. Sepsis Event Note (ED) - Evaluation Sepsis Screening Result: No Definite Risk - Focused Exam Vital Signs: Vital Signs Temp Pulse Resp BP BP Pulse Ox 12/25/20 16:10 96 17 181/99 H 95 12/25/20 14:58 97 17 169/96 H 97 12/25/20 14:39 100 18 189/112 H 100 12/25/20 14:34 203/107 H 12/25/20 14:22 97.0 F 106 H 18 203/107 H 97 - My Orders Last 24 Hours: My Active Orders 12/25/20 14:24 EKG Documentation Completion [RC] STAT - Assessment/Plan Last 24 Hours: My Active Orders 12/25/20 14:24 EKG Documentation Completion [RC] STAT Plan: Patient is a 35-year-old male who presents today for nausea vomiting diffuse body aches and missed dialysis. Will obtain EKG labs to check his potassium and see if patient needs emergent dialysis. Patient had trouble setting up dialysis outpatient. Will consult pillowcase cutter to assist patient.
[2020-12-25 15:23] LABS: CARBON DIOXIDE,CO2 19.3 mmol/L (21.0-32.0); POTASSIUM,K 4.4 mmol/L (3.5-5.1)
[2020-12-25] MEDS ORDERED: Calcium Gluconate 10% 1 GM/10 ML SDV IVPUSH ONE (15:46)
--- NOTE | 2020-12-25 16:12 | CR ---
HISTORY: Missed dialysis. TECHNIQUE: Portable frontal view the chest. COMPARISON: Chest x-ray 04/25/2021. FINDINGS: New right IJ dual-lumen central venous catheter with tip in the low SVC. No airspace consolidation. No pleural effusion or pneumothorax. Pulmonary vasculature and cardiomediastinal silhouette are within normal limits. IMPRESSION: No cardiopulmonary abnormality. Dictated by Marcelino Onofre MD @ Dec 25 2020 4:11PM Signed by Dr. Marcelino Onofre @ Dec 25 2020 4:11PM
[2020-12-25 17:05] VITALS: BP 192/106; PULSE 98
== END 2020-12-25 17:06 | disposition home or self-care (01) ==
LOC: MW.ED 14:10
DX: R51.9 Headache, unspecified (principal); K21.9 Gastro-esophageal reflux disease without esophagitis; I12.9 Hypertensive chronic kidney disease with stage 1 through stage 4 chronic kidney disease, or unspecified chronic kidney disease; N18.9 Chronic kidney disease, unspecified; E10.42 Type 1 diabetes mellitus with diabetic polyneuropathy; E10.22 Type 1 diabetes mellitus with diabetic chronic kidney disease; E10.21 Type 1 diabetes mellitus with diabetic nephropathy; Z91.013 Allergy to seafood; Z91.048 Other nonmedicinal substance allergy status; Z88.0 Allergy status to penicillin; Z79.82 Long term (current) use of aspirin; Z79.899 Other long term (current) drug therapy
CPT/HCPCS: 36415; 71045; 80053; 82550; 83690; 83735; 84100; 85025; 93005; 96374; 96375; 99285; A9270; J0610; J1170; J2405

== ENCOUNTER 2021-01-02 15:10 | Emergency (ER) | payer MEDICARE, MEDICAID ==
[2021-01-02 16:13] LABS: CARBON DIOXIDE,CO2 17.5 mmol/L (21.0-32.0); POTASSIUM,K 4.7 mmol/L (3.5-5.1)
--- NOTE | 2021-01-02 16:32 | CR ---
Indication: End-stage renal disease Technique: Chest 1 view Comparison: December 25, 2020 Findings/Impression: Stable cardiomediastinal silhouette. Normal pulmonary vasculature. No evidence for pulmonary edema. Right-sided large-bore catheter tip terminates at the level of the cavoatrial junction. The lungs and pleural spaces are clear. Osseous structures are intact. Dictated by Belinda Bull MD @ 01/02/2021 4:31:[address] Belinda Bull @ Jan 02 2021 4:31PM
--- NOTE | 2021-01-02 16:44 | EDM.PDOC ---
ED HPI GENERAL MEDICAL PROBLEM - General Chief Complaint: General Stated Complaint: HIGH BP Time Seen by Provider: 01/02/21 15:17 - History of Present Illness INITIAL COMMENTS - FREE TEXT/NARRATIVE: CHIEF COMPLAINT(S): Hypertension HISTORY OF PRESENT ILLNESS: This is a 35-year-old man and with a past medical history of diabetes mellitus, esophagitis, end-stage renal disease, gastroparesis, hypertension who comes to the emergency department with a chief complaint of hypertension. The patient states that yesterday he was seen by electrical accessories ii assembler here at [facility] and during his evaluation they stated he had lab abnormalities and increased blood pressure and that he needed to come to the emergency department to be admitted for hemodialysis. He states that he is currently not experiencing any headache, nausea, vomiting, melena, hematemesis, bilious emesis, hematochezia, abdominal pain, chest pain, or shortness of breath. He states that he has been trying to set up a dialysis chair and has not had dialysis here in [place]. He denies any other symptoms. REVIEW OF SYSTEMS: Constitutional: Denies fever, chills. Eyes: Denies eye pain Ears, Nose, Mouth, & Throat: Denies earache Cardiovascular: Denies chest pain Respiratory: Denies shortness of breath Gastrointestinal: Denies Nausea, vomiting, diarrhea, hematochezia. Genitourinary: Denies hematuria Skin:Denies a rash MSK: Denies joint pain Neurological: Denies blurred vision Psychiatric: Denies depression PAST MEDICAL HISTORY: As per history of present illness and as reviewed below otherwise noncontributory. SURGICAL HISTORY: As per history of present illness and as reviewed below otherwise noncontributory. SOCIAL HISTORY: As per history of present illness and as reviewed below otherwise noncontributory. FAMILY HISTORY: As per history of present illness and as reviewed below otherwise noncontributory. EXAMINATION OF ORGAN SYSTEMS/BODY AREAS: Constitutional: Blood pressure was 123/81, heart rate 84, respiratory rate 18 with an oxygen saturation 98% on room air. Temperature 36.2 General: Overall well-appearing man who is in no acute distress. Psychiatric: Appropriate mood and affect. Eyes: No scleral icterus or conjunctival erythema ENMT: Moist mucous membranes. No pharyngeal erythema Cardiovascular: Regular, rate, and rhythm. No gallops, murmurs, or rubs. Bilateral upper extremity pulses symmetric and intact. 1+ pitting edema of the lower left extremity. No JVD. Left upper extremity distal forearm AV fistula with palpable thrill. Respiratory: Lungs clear to auscultation bilaterally. No wheezes, rales, or rhonchi. Speaking in full sentences. No increased work of breathing. Gastrointestinal: Soft, non-tender, non-distended. Normoactive bowel sounds Genitourinary: No suprapubic tenderness Musculoskeletal: Normal range of motion. Right BKA Skin: No lesions or abrasions. Neurological: Alert, GCS 15 MEDICAL DECISION MAKING AND COURSE IN THE ED WITH INTERPRETATION/REVIEW OF DIAGNOSTIC STUDIES: This is a 35-year-old man and with a past medical history of diabetes mellitus, esophagitis, end-stage renal disease, gastroparesis, hypertension who comes to the emergency department after being told by electrical accessories ii assembler yesterday to come to the emergency department for hypertension admission. I was the physician on-call yesterday and they were concerned about hypertensive emergency, laboratory abnormalities, need for hemodialysis. They recommended admission and urgent hemodialysis. At this time the patient's blood pressure is normal and the patient is saturating appropriately. This is significantly improved from December 26, 2019 where the patient's blood pressure is 192/106. At this time given the concern by nephrology I will obtain labs including CBC, BMP, EKG, and chest x-ray to evaluate for need for urgent/ emergent hemodialysis. EKG was obtained which did not reveal any acute signs of ischemia or evidence of peaked T waves or widened QRS. Cardiac monitoring revealed sinus rhythm with no peak T waves and pulse oximetry with good waveform was greater than 94%. Time: 1544 Twelve-lead EKG interpreted by myself. Normal sinus rhythm at a rate of 83 beats per minute. Normal axis. SD interval is 170 ms. QRS duration is [address] segments are normal without elevations or depressions. No T wave inversions there are Q waves in leads III, V2 and V3. Hypertrophy not noted. No changes demonstrated from prior EKG dated December 25, 2020. Interpretation: Sinus rhythm with unchanged Q waves As patient was having his labs drawn I did contact [facility] in [place] for further information regarding his need for hemodialysis and eventual plan as he is being evaluated there by nephrology. The patient does not recall his electrical accessories ii assembler name. Therefore I spoke with Dr. Bowden who discussed with me that they would be willing to accept the patient if there is need for urgent hemodialysis and for further planning. The she stated that the patient does not have the ability to get a hemodialysis chair in [place] as there are no more chairs available. She states that there may have been a fall through with set up of hemodialysis chair in [place]. [employer]rooving Machine Operator who is with patient yesterday stated that the patient was hypertensive, had nausea, was not eating and had a headache and that is why they sent him to the emergency department. I did discuss with electrical accessories ii assembler that if the patient did need urgent hemodialysis I could arrange for transport to [place] for further treatment and management. I did discuss this with the patient he was amenable to this plan. Laboratory: CBC reveals a microcytic anemia with an MCV of 68.1 with a hemoglobin of 5.9 and hematocrit of 18.8. His hemoglobin has been dropping slowly since November 24, 2020 where his hemoglobin was 11.1. BMP reveals hyperglycemia at 128, hyperchloremia at 112, metabolic acidosis with bicarbonate of 17.5 and elevated BUN at 61 and creatinine of 8.2. Again his BUN and creatinine have been slowly increasing since November 24, 2020 where his BUN was 42 and creatinine was 4.2. Patient's potassium is 4.7. Patient does have hypocalcemia at 7.3. After labs I did discuss with the patient that I would like to provide the patient with a blood transfusion. At this time I did discuss with him the pathophysiology of his anemia. The patient again denied any hematemesis, melena, or hematochezia that he has had in the past. Consent was obtained and placed in chart. Patient will be transfused 1 unit. The radiological images were viewed by myself along with reading the report from the radiologist. Chest x-ray does not reveal any evidence of fluid overload with a right-sided large bore catheter tip that terminates at the level of the cavoatrial junction. After labs I did contact [facility] in [place] and spoke with hospitalist Dr. Machado who at this time recommended a VBG and follow-up with nephrology outpatient and there is no emergent/urgent need for hemodialysis and to repeat hemoglobin after blood transfusion. I did contact our hospitalist here at the hospital and we do not have the ability to arrange for outpatient hemodialysis chair. therefore, I did obtain an VBG and contacted Dr. Bowden to discuss outpatie nt options. At the time of my discussion with Dr. Bowden VBG had returned and she stated that she would speak with Dr. Machado about transfer and admission. I did perform a rectal examination with RN statistician mathematical in presence. Stool was brown and guaiac was negative. VB.24/36/32/[address] Bowden did contact me at this time she stated that Dr. Machado had accepted the patient for admission. Therefore the patient will be transferred via ALS ambulance to [facility]. DISPOSITION: The patient will be transferred to [facility] in stable condition CONDITION: Serious PROCEDURES: Cardiac monitoring interpretation, pulse oximetry interpretation FINAL IMPRESSION(S)/DIAGNOSES: 1. Acute on chronic anemia likely secondary to CKD/end-stage renal disease requiring blood transfusion 2. Acute metabolic acidosis likely secondary to CKD/end-stage renal disease 3. Acute uremia Critical Care Procedure Note Authorized and performed by: Matti South M.D. Critical Care Time: 60 minutes Due to a high probability of clinically significant, life threatening deterioration, the patient required my highest level of preparedness to intervene emergently and I personally spent this critical care time directly and personally managing the patient. This critical care time included obtaining a history, examining the patient, pulse oximetry; ordering and review of studies; arranging urgent treatment with development of a management plan; evaluation of a patients reponse to treatment; frequent assessment; and discussions with other providers. This critical care time was performed to assess and manage the high probability of imminent, life threatening deterioration that could result in multiorgan failure. It was exclusive of separate billable procedures and treating other patients. Please see MDM section and rest of the note for further information on patient assessment and treatment. Please see MDM section and rest of the note for further information on patient assessment and treatment. Matti South M.D. Headache Pain Score (Numeric/FACES): 6 - Related Data Allergies Allergy/AdvReac Type Severity Reaction Status Date / Time shrimp Allergy Severe Swelling Verified 01/02/21 15:30 iodine Allergy Unknown Anaphylactic Verified 01/02/21 15:30 Shock Penicillins Allergy Unknown Anaphylactic Verified 01/02/21 15:30 Shock shellfish derived Allergy Anaphylactic Verified 01/02/21 15:30 Shock gluten Allergy Severe Muscle Uncoded 01/02/21 15:30 Aches Home Meds: Home Meds Insulin Aspart [NovoLOG] 0 unit SUBCUT .UP TO 60 UN DAILY 09/30/19 [History] Insulin Glarg,Human.Rec.Analog [Lantus] 50 mg SUBCUT DAILY 12/07/19 [History] Furosemide 80 mg PO DAILY 10/30/20 [History] Ondansetron [Zofran ODT] 4 mg PO Q8H PRN 10/30/20 [History] Pantoprazole Sodium [Protonix] 40 mg PO BID 10/30/20 [History] Doxazosin [Cardura] 4 mg PO BEDTIME 11/18/20 [History] B Complex W-C No.20/Folic Acid [Virt-Caps Softgel] 1 mg PO DAILY 01/02/21 [History] Labetalol [Normodyne] 600 mg PO QID 01/02/21 [History] NIFEdipine [Nifedipine ER] 60 mg PO Q8H 01/02/21 [History] Past Medical History - Past Health History Medical/Surgical History: Denies Medical/Surgical History HEENT History: Reports: Impaired Vision Other HEENT History: blind right eye Cardiovascular History: Reports: Hypertension Respiratory History: Reports: None Gastrointestinal History: Reports: Gastritis, GERD, Hiatal Hernia, Other (See Below) Other Gastrointestinal History: h/o gastric ulcers, h/o hiatal hernia; gastroparesis Genitourinary History: Reports: Chronic Renal Insuffiency, Diabetic Nephropathy Musculoskeletal History: Reports: Amputation Other Musculoskeletal History: RLE Neurological History: Reports: Neuropathy, Peripheral Other Neuro History: stroke Psychiatric History: Reports: Anxiety Endocrine/Metabolic History: Reports: Diabetes, Type I Other Endocrine/Metabolic History: brittle diabetic. 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 Creative Lead: None Hematologic History: Reports: Anemia Immunologic History: Reports: None Oncologic (Cancer) History: Reports: None Dermatologic History: Reports: Other (See Below) Other Dermatologic History: diabetic foot ulcers - Infectious Disease History Infectious Disease History: Reports: Chicken Pox, MRSA, Novel Coronavirus Other Infectious Disease History: Covid-19 - Past Surgical History Head Surgeries/Procedures: Reports: None HEENT Surgical History: Reports: None Cardiovascular Surgical History: Reports: None Respiratory Surgical History: Reports: None GI Surgical History: Reports: None Male Surgical History: Reports: None Other Male Surgeries/Procedures: AV fistula, L forearm Endocrine Surgical History: Reports: None Neurological Surgical History: Reports: None Musculoskeletal Surgical History: Reports: Amputation Other Musculoskeletal Surgeries/Procedures:: right BKA Oncologic Surgical History: Reports: None Dermatological Surgical History: Reports: None Social & Family History - Family History Family Medical History: No Pertinent Family History Cardiac: Reports: High Cholesterol, Hypertension OBGYN: Reports: Neurological: Reports: None Psychiatric: Reports: Anxiety - Caffeine Use Caffeine Use: Reports: None Other Caffeine Use: daily Caffeine Use Comment: patient is uncooperated - Recreational Drug Use Recreational Drug Use: No - Living Situation & Occupation Living situation: Reports: Single Occupation: Employed (Currently unemployed.) ED ROS GENERAL - Review of Systems Review Of Systems: See Below ED EXAM, GENERAL - Physical Exam Exam: See Below Course - Vital Signs Last Recorded V/S: Last Vital Signs Temp 36.2 C 01/02/21 15:15 Pulse 84 01/02/21 15:15 Resp BP 123/81 01/02/21 15:15 Pulse Ox 98 01/02/21 15:15 - Orders/Labs/Meds Orders: Active Orders 24 hr Category Date Time Status EKG Documentation Completion [RC] STAT Care 01/02/21 15:18 Active Verify Patient Consent Obtain [RC] ASDIRECTED Care 01/02/21 16:14 Active RED BLOOD CELLS LP [BBK] Stat Lab 01/02/21 16:39 Results TYPE AND SCREEN [BBK] Stat Lab 01/02/21 16:39 Results Transfuse Red Blood Cells [COMM] Stat Oth 01/02/21 16:13 Ordered Labs: Laboratory Tests 01/02/21 01/02/21 01/02/21 Range/Units 15:46 15:46 16:39 WBC 9.28 (4.0-11.0) K/uL RBC 2.76 L (4.50-5.90) M/uL Hgb 5.9 L (13.0-17.0) g/dL Hct 18.8 L (38.0-50.0) % MCV 68.1 L (80.0-98.0) fL MCH 21.4 L (27.0-32.0) pg MCHC 31.4 (31.0-37.0) g/dL RDW Std Deviation 47.1 (28.0-62.0) fl RDW Coeff of Dania 19 H (11.0-15.0) % Plt Count 337 (150-400) K/uL MPV 9.50 (7.40-12.00) fL Neut % (Auto) 73.8 (48.0-80.0) % Lymph % (Auto) 16.1 (16.0-40.0) % Moody % (Auto) 6.5 (0.0-15.0) % Eos % (Auto) 3.1 (0.0-7.0) % Baso % (Auto) 0.5 (0.0-1.5) % Neut # (Auto) 6.9 H (1.4-5.7) K/uL Lymph # (Auto) 1.5 (0.6-2.4) K/uL Moody # (Auto) 0.6 (0.0-0.8) K/uL Eos # (Auto) 0.3 (0.0-0.7) K/uL Baso # (Auto) 0.1 (0.0-0.1) K/uL Nucleated RBC % 0.0 /100WBC Nucleated RBCs # 0 K/uL VBG pH (7.31-7.41) VBG pCO2 (35-45) mmHG VBG pO2 (30-40) mmHG VBG HCO3 (22-30) mEq/L VBG Total CO2 (41-51) mmol/L VBG Base Excess (-3.0-3.0) Sodium 142 (136-148) mmol/L Potassium 4.7 (3.5-5.1) mmol/L Chloride 112 H (98-107) mmol/L Carbon Dioxide 17.5 L (21.0-32.0) mmol/L BUN 61 H (7.0-18.0) mg/dL Creatinine 8.2 H (0.8-1.3) mg/dL Est Cr Clr Drug Dosing 12.69 mL/min Estimated GFR (MDRD) 7.5 ml/min Glucose 128 H (74-106) mg/dL Calcium 7.3 L (8.5-10.1) mg/dL SARS-CoV-2 RNA (BK) (NEGATIVE) Blood Type O POSITIVE Antibody Screen NEGATIVE Crossmatch See Detail 01/02/21 01/02/21 Range/Units 16:45 17:19 WBC (4.0-11.0) K/uL RBC (4.50-5.90) M/uL Hgb (13.0-17.0) g/dL Hct (38.0-50.0) % MCV (80.0-98.0) fL MCH (27.0-32.0) pg MCHC (31.0-37.0) g/dL RDW Std Deviation (28.0-62.0) fl RDW Coeff of Dania (11.0-15.0) % Plt Count (150-400) K/uL MPV (7.40-12.00) fL Neut % (Auto) (48.0-80.0) % Lymph % (Auto) (16.0-40.0) % Moody % (Auto) (0.0-15.0) % Eos % (Auto) (0.0-7.0) % Baso % (Auto) (0.0-1.5) % Neut # (Auto) (1.4-5.7) K/uL Lymph # (Auto) (0.6-2.4) K/uL Moody # (Auto) (0.0-0.8) K/uL Eos # (Auto) (0.0-0.7) K/uL Baso # (Auto) (0.0-0.1) K/uL Nucleated RBC % /100WBC Nucleated RBCs # K/uL VBG pH 7.24 L (7.31-7.41) VBG pCO2 36 (35-45) mmHG VBG pO2 32 (30-40) mmHG VBG HCO3 16 L (22-30) mEq/L VBG Total CO2 16 L (41-51) mmol/L VBG Base Excess -10.9 L (-3.0-3.0) Sodium (136-148) mmol/L Potassium (3.5-5.1) mmol/L Chloride (98-107) mmol/L Carbon Dioxide (21.0-32.0) mmol/L BUN (7.0-18.0) mg/dL Creatinine (0.8-1.3) mg/dL Est Cr Clr Drug Dosing mL/min Estimated GFR (MDRD) ml/min Glucose (74-106) mg/dL Calcium (8.5-10.1) mg/dL SARS-CoV-2 RNA (BK) NEGATIVE (NEGATIVE) Blood Type Antibody Screen Crossmatch Departure - Departure Time of Disposition: 17:54 Disposition: DC/Tfer to [facility] 02 Condition: Fair Clinical Impression: Uremia, acute, Metabolic acidosis Anemia Qualifiers: Anemia type: due to chronic kidney disease Chronic kidney disease stage: unspecified stage Qualified Code(s): N18.9 - Chronic kidney disease, unspecified - Discharge Information *PRESCRIPTION DRUG MONITORING PROGRAM REVIEWED*: No *COPY OF PRESCRIPTION DRUG MONITORING REPORT IN PATIENT IVELISSE: No Referrals: PCP,None [Primary Care Provider] - Forms: ED Department Discharge Sepsis Event Note (ED) - Evaluation Sepsis Screening Result: No Definite Risk - Focused Exam Vital Signs: Vital Signs Temp Pulse BP Pulse Ox 01/02/21 15:15 36.2 C 84 123/81 98 - My Orders Last 24 Hours: My Active Orders 01/02/21 15:18 EKG Documentation Completion [RC] STAT 01/02/21 16:13 Transfuse Red Blood Cells [COMM] Stat 01/02/21 16:14 Verify Patient Consent Obtain [RC] ASDIRECTED 01/02/21 16:39 RED BLOOD CELLS LP [BBK] Stat TYPE AND SCREEN [BBK] Stat - Assessment/Plan Last 24 Hours: My Active Orders 01/02/21 15:18 EKG Documentation Completion [RC] STAT 01/02/21 16:13 Transfuse Red Blood Cells [COMM] Stat 01/02/21 16:14 Verify Patient Consent Obtain [RC] ASDIRECTED 01/02/21 16:39 RED BLOOD CELLS LP [BBK] Stat TYPE AND SCREEN [BBK] Stat
[2021-01-02] MEDS ORDERED: Labetalol 100 MG Tab PO ONE (18:03)
[2021-01-02] MEDS ORDERED: NIFEdipine 30 MG Tab.ER PO ONE (18:05)
[2021-01-02] MEDS ORDERED: Labetalol 100 MG Tab ONE (18:07)
[2021-01-02 18:13] VITALS: PULSE 83
[2021-01-02 19:19] VITALS: BP 145/95
== END 2021-01-02 18:26 ==
LOC: MW.ED 15:10
DX: I12.9 Hypertensive chronic kidney disease with stage 1 through stage 4 chronic kidney disease, or unspecified chronic kidney disease (principal); E10.40 Type 1 diabetes mellitus with diabetic neuropathy, unspecified; E10.22 Type 1 diabetes mellitus with diabetic chronic kidney disease; N18.9 Chronic kidney disease, unspecified; D63.1 Anemia in chronic kidney disease; K21.9 Gastro-esophageal reflux disease without esophagitis; Z79.899 Other long term (current) drug therapy; Z88.0 Allergy status to penicillin; Z91.013 Allergy to seafood; Z88.8 Allergy status to other drugs, medicaments and biological substances; Z91.018 Allergy to other foods; Z20.822 Contact with and (suspected) exposure to COVID-19
CPT/HCPCS: 36415; 36430; 71045; 80048; 82803; 85025; 86850; 86900; 86901; 86920; 86921; 86922; 93005; 99291; A9270; P9016; U0002

== ENCOUNTER 2021-01-09 05:17 | Emergency (ER) | payer MEDICARE, MEDICAID ==
--- NOTE | 2021-01-09 06:02 | EDM.PDOC ---
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 Patient reports that he was seen here approximately 2 weeks with similar complaints and was told that he did not have a retinal detachment. Patient is followed closely by Dr. Darling. He reports that he followed up with Dr. Darling and he received an injection to his eye and is scheduled to follow-up with him in approximately 2 weeks. Patient denies any recent fevers, shakes, chills, nausea, vomiting, diarrhea. Patient reports that he feels that his vision is slightly more blurry because of the reddish-brown sheet in his visual field. Patient denies any pain or discomfort. Patient denies any headache. Patient denies any trauma to his eye. Review of systems: As per history of present illness and below otherwise all systems reviewed and negative. Past medical history: As per history of present illness and as reviewed below otherwise noncontributory. Surgical history: As per history of present illness and as reviewed below otherwise noncontributory. Social history: No reported history of drug or alcohol abuse. Family history: As per history of present illness and as reviewed below otherwise noncontributory. Physical exam: This patient was seen and evaluated during the 2019 SARS-CoV-2 novel coronavirus pandemic period. Community viral transmission is ongoing at time of this encounter and the emergency department is operating under pandemic response procedures. Constitutional: Patient is oriented to person, place, and time. Appears well- developed and well-nourished. No distress. HEENT: Moist mucous membranes Head: Normocephalic and atraumatic Eyes: Right eye exhibits no discharge. Left eye exhibits no discharge. No scleral icterus Neck: Normal range of motion. No tracheal deviation present. Cardiovascular: Normal rate and regular rhythm. Pulmonary: Effort normal, no respiratory distress. Abdominal: No distention Musculoskeletal: Normal range of motion Neurologic: Alert and oriented to person, place and time. Skin: [place], warm and dry. Psychiatric: Normal mood and affect. Behavior is normal. Judgment and thought content normal. Nursing note and vital signs have been reviewed Patient's ER physical exam is significant for right pupil opaque. Left pupil exam: 4 mm and reactive to light. Patient's funduscopic exam reveals multiple small hemorrhages identified throughout his funduscopic exam. Normal cup-to-disc ratio. No visual evidence of a retinal detachment on exam. Visual acuity is 20/25 left eye Assessment and plan: 35-year-old gentleman who presents ER today with concern regarding a left retinal detachment. I have discussed the case with Dr. Darling, his orthopaedic physician assistant. Dr. Darling is extremely familiar with our patient. He reports that he gets monthly injections and that patient's presentation appears to be more consistent with retinal hemorrhages secondary to his poorly controlled diabetes. Patient is currently being treated with monthly injections. Patient will eventually need a vitrectomy that Dr. Darling is currently in the process of assisting with arranging. At this time, Dr. Darling recommends no emergent intervention and will have his office call our patient in the morning to arrange for appropriate follow-up. I have discussed this conversation with the patient and at this time, he feels comfortable with the plan for discharge home and follow-up closely with Dr. Darling. Definitive disposition and diagnosis as appropriate pending reevaluation and review of above. - Related Data Allergies Allergy/AdvReac Type Severity Reaction Status Date / Time shrimp Allergy Severe Swelling Verified 01/09/21 05:28 iodine Allergy Unknown Anaphylactic Verified 01/09/21 05:28 Shock Penicillins Allergy Unknown Anaphylactic Verified 01/09/21 05:28 Shock shellfish derived Allergy Anaphylactic Verified 01/09/21 05:28 Shock gluten Allergy Severe Muscle Uncoded 01/09/21 05:28 Aches Home Meds: Home Meds Insulin Aspart [NovoLOG] 0 unit SUBCUT .UP TO 60 UN DAILY 09/30/19 [History] Insulin Glarg,Human.Rec.Analog [Lantus] 50 mg SUBCUT DAILY 12/07/19 [History] Furosemide 80 mg PO DAILY 10/30/20 [History] Ondansetron [Zofran ODT] 4 mg PO Q8H PRN 10/30/20 [History] Pantoprazole Sodium [Protonix] 40 mg PO BID 10/30/20 [History] Doxazosin [Cardura] 4 mg PO BEDTIME 11/18/20 [History] B Complex W-C No.20/Folic Acid [Virt-Caps Softgel] 1 mg PO DAILY 01/02/21 [History] Labetalol [Normodyne] 600 mg PO QID 01/02/21 [History] NIFEdipine [Nifedipine ER] 60 mg PO Q8H 01/02/21 [History] Past Medical History - Past Health History Medical/Surgical History: Denies Medical/Surgical History HEENT History: Reports: Impaired Vision Other HEENT History: blind right eye Cardiovascular History: Reports: Hypertension Respiratory History: Reports: None Gastrointestinal History: Reports: Gastritis, GERD, Hiatal Hernia, Other (See Below) Other Gastrointestinal History: h/o gastric ulcers, h/o hiatal hernia; gastroparesis Genitourinary History: Reports: Acute Renal Failure, Chronic Renal Insuffiency, Dialysis, Diabetic Nephropathy Musculoskeletal History: Reports: Amputation Other Musculoskeletal History: RLE Neurological History: Reports: Neuropathy, Peripheral Other Neuro History: stroke Psychiatric History: Reports: Anxiety Endocrine/Metabolic History: Reports: Diabetes, Type I Other Endocrine/Metabolic History: brittle diabetic. 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 Cyber Systems Administrator: None Hematologic History: Reports: Anemia Immunologic History: Reports: None Oncologic (Cancer) History: Reports: None Dermatologic History: Reports: Other (See Below) Other Dermatologic History: diabetic foot ulcers - Infectious Disease History Infectious Disease History: Reports: Chicken Pox, MRSA, Novel Coronavirus Other Infectious Disease History: Covid-19 - Past Surgical History Head Surgeries/Procedures: Reports: None HEENT Surgical History: Reports: None Cardiovascular Surgical History: Reports: None Respiratory Surgical History: Reports: None GI Surgical History: Reports: None Male Surgical History: Reports: None Other Male Surgeries/Procedures: AV fistula, L forearm Endocrine Surgical History: Reports: None Neurological Surgical History: Reports: None Musculoskeletal Surgical History: Reports: Amputation Other Musculoskeletal Surgeries/Procedures:: right BKA Oncologic Surgical History: Reports: None Dermatological Surgical History: Reports: None Social & Family History - Family History Family Medical History: No Pertinent Family History Cardiac: Reports: High Cholesterol, Hypertension OBGYN: Reports: Neurological: Reports: None Psychiatric: Reports: Anxiety - Tobacco Use Tobacco Use Status *Q: Never Tobacco User - Caffeine Use Caffeine Use: Reports: None Other Caffeine Use: daily Caffeine Use Comment: patient is uncooperated - Recreational Drug Use Recreational Drug Use: No - Living Situation & Occupation Living situation: Reports: Single Occupation: Employed (Currently unemployed.) ED ROS GENERAL - Review of Systems Review Of Systems: See Below ED EXAM, GENERAL - Physical Exam Exam: See Below Course - Vital Signs Last Recorded V/S: Last Vital Signs Temp 98.7 F 01/09/21 05:29 Pulse 94 01/09/21 05:29 Resp 16 01/09/21 05:29 BP 142/89 H 01/09/21 05:29 Pulse Ox 95 01/09/21 05:29 Departure - Departure Time of Disposition: 06:02 Disposition: Home, Self-Care 01 Condition: Good Clinical Impression: Retinal hemorrhage of left eye - Discharge Information Instructions: Retinal Detachment Referrals: Fitz Infante MD [Primary Care Provider] - Additional Instructions: You were seen and evaluated in the ER today secondary to concerns regarding retinal hemorrhage of your left eye. I have discussed your case with Dr. Darling, your orthopaedic physician assistant who is extremely familiar with your case. He does not feel that your presentation is consistent with a retinal hemorrhage given your past. Your presentation appears to be more consistent with a retinal hemorrhage which you have been treated with injections by Dr. Darling on a month ly basis. Dr. Darling is currently in the process of trying to arrange for a vitrectomy for you by the retinal specialist. He will have his nurses contacted you today for further follow-up instructions. Dr. Darling wants you to feel free to call him at any time if you have any questions or concerns. Although your presentation is not consistent with a retinal detachment, you have been provided instructions regarding precautions for retinal detachment . The following information is given to patients seen in the emergency department who are being discharged to home. This information is to outline your options for follow-up care. We provide all patients seen in our emergency department with a follow-up referral. The need for follow-up, as well as the timing and circumstances, are variable depending upon the specifics of your emergency department visit. If you don't have a primary care physician on staff, we will provide you with a referral. We always advise you to contact your personal physician following an emergency department visit to inform them of the circumstance of the visit and for follow-up with them and/or the need for any referrals to a consulting specialist. The emergency department will also refer you to a specialist when appropriate. This referral assures that you have the opportunity for follow-up care with a specialist. All of these measure are taken in an effort to provide you with optimal care, which includes your follow-up. Under all circumstances we always encourage you to contact your private physician who remains a resource for coordinating your care. When calling for follow-up care, please make the office aware that this follow-up is from your recent emergency room visit. If for any reason you are refused follow-up, please contact the [facility] Emergency Department at and asked to speak to the emergency department charge nurse. [facility] [address] [place] [address] [place] [address] Sepsis Event Note (ED) - Evaluation Sepsis Screening Result: No Definite Risk - Focused Exam Vital Signs: Vital Signs Temp Pulse Resp BP Pulse Ox 01/09/21 05:29 98.7 F 94 16 142/89 H 95
[2021-01-09 06:12] VITALS: BP 158/83; PULSE 90
== END 2021-01-09 06:12 | disposition home or self-care (01) ==
LOC: MW.ED 05:17
DX: E10.319 Type 1 diabetes mellitus with unspecified diabetic retinopathy without macular edema (principal); H35.62 Retinal hemorrhage, left eye; E10.43 Type 1 diabetes mellitus with diabetic autonomic (poly)neuropathy; E10.40 Type 1 diabetes mellitus with diabetic neuropathy, unspecified; I10 Essential (primary) hypertension; K31.84 Gastroparesis; Z79.4 Long term (current) use of insulin; Z88.0 Allergy status to penicillin; Z91.013 Allergy to seafood; Z91.041 Radiographic dye allergy status; Z91.018 Allergy to other foods; Z86.16 Personal history of COVID-19
CPT/HCPCS: 99283

== ENCOUNTER 2021-03-22 15:23 | Emergency (ER) | payer MEDICARE, MEDICAID, BC ==
[2021-03-22] MEDS ORDERED: Haloperidol Lactate 5 MG/ML SDV IM ONE (15:32)
[2021-03-22] MEDS ORDERED: LORazepam 2 MG/ML SDV IVPUSH ONE (15:32)
--- NOTE | 2021-03-22 15:42 | EDM.PDOC ---
ED HPI GENERAL MEDICAL PROBLEM - General Chief Complaint: Gastrointestinal Problem Stated Complaint: VOMITING BLOOD Time Seen by Provider: 03/22/21 15:25 Source of Information: Reports: Patient History Limitations: Reports: No Limitations - History of Present Illness INITIAL COMMENTS - FREE TEXT/NARRATIVE: Patient is a 35-year-old male with a history of end-stage renal disease does dialysis Thursday and Saturdays last had dialysis yesterday presents today for abdominal pain and vomiting. Patient is very well-known to the ED and occasionally presents with this presentation. States the vomiting comes out of nowhere has intense pain. Has had multiple imagings without cause of his pain. States today to do anything different he just had this vomiting he has intense diffuse pain document get a better. Patient denies any urinary symptoms symptoms fever chills or other complaints. Abdomen Pain Score (Numeric/FACES): 10 - Related Data Allergies Allergy/AdvReac Type Severity Reaction Status Date / Time shrimp Allergy Severe Swelling Verified 03/22/21 15:25 iodine Allergy Unknown Anaphylactic Verified 03/22/21 15:25 Shock Penicillins Allergy Unknown Anaphylactic Verified 03/22/21 15:25 Shock shellfish derived Allergy Anaphylactic Verified 03/22/21 15:25 Shock gluten Allergy Severe Muscle Uncoded 03/22/21 15:25 Aches Home Meds: Home Meds Insulin Aspart [NovoLOG] 0 unit SUBCUT .UP TO 60 UN DAILY 09/30/19 [History] Insulin Glarg,Human.Rec.Analog [Lantus] 50 mg SUBCUT DAILY 12/07/19 [History] Furosemide 80 mg PO DAILY 10/30/20 [History] Ondansetron [Zofran ODT] 4 mg PO Q8H PRN 10/30/20 [History] Pantoprazole Sodium [Protonix] 40 mg PO BID 10/30/20 [History] Doxazosin [Cardura] 4 mg PO BEDTIME 11/18/20 [History] B Complex W-C No.20/Folic Acid [Virt-Caps Softgel] 1 mg PO DAILY 01/02/21 [History] Labetalol [Normodyne] 600 mg PO QID 01/02/21 [History] NIFEdipine [Nifedipine ER] 60 mg PO Q8H 01/02/21 [History] Past Medical History - Past Health History Medical/Surgical History: Denies Medical/Surgical History HEENT History: Reports: Impaired Vision Other HEENT History: blind right eye Cardiovascular History: Reports: Hypertension Respiratory History: Reports: None Gastrointestinal History: Reports: Gastritis, GERD, Hiatal Hernia, Other (See Below) Other Gastrointestinal History: h/o gastric ulcers, h/o hiatal hernia; gastroparesis Genitourinary History: Reports: Acute Renal Failure, Chronic Renal Insuffiency, Dialysis, Diabetic Nephropathy Musculoskeletal History: Reports: Amputation Other Musculoskeletal History: RLE Neurological History: Reports: Neuropathy, Peripheral Other Neuro History: stroke Psychiatric History: Reports: Anxiety Endocrine/Metabolic History: Reports: Diabetes, Type I Other Endocrine/Metabolic History: brittle diabetic. 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 Produce Buyer: None Hematologic History: Reports: Anemia Immunologic History: Reports: None Oncologic (Cancer) History: Reports: None Dermatologic History: Reports: Other (See Below) Other Dermatologic History: diabetic foot ulcers - Infectious Disease History Infectious Disease History: Reports: Chicken Pox, MRSA, Novel Coronavirus Other Infectious Disease History: Covid-19 - Past Surgical History Head Surgeries/Procedures: Reports: None HEENT Surgical History: Reports: None Cardiovascular Surgical History: Reports: None Respiratory Surgical History: Reports: None GI Surgical History: Reports: None Male Surgical History: Reports: None Other Male Surgeries/Procedures: AV fistula, L forearm Endocrine Surgical History: Reports: None Neurological Surgical History: Reports: None Musculoskeletal Surgical History: Reports: Amputation Other Musculoskeletal Surgeries/Procedures:: right BKA Oncologic Surgical History: Reports: None Dermatological Surgical History: Reports: None Social & Family History - Family History Family Medical History: No Pertinent Family History Cardiac: Reports: High Cholesterol, Hypertension OBGYN: Reports: Neurological: Reports: None Psychiatric: Reports: Anxiety - Tobacco Use Tobacco Use Status *Q: Never Tobacco User - Caffeine Use Caffeine Use: Reports: None Other Caffeine Use: daily Caffeine Use Comment: patient is uncooperated - Recreational Drug Use Recreational Drug Use: Yes Drug Use in Last 12 Months: Yes Recreational Drug Type: Reports: Marijuana/Hashish Recreational Drug Use Frequency: Daily - Living Situation & Occupation Living situation: Reports: Single Occupation: Employed (Currently unemployed.) ED ROS GENERAL - Review of Systems Review Of Systems: See Below Constitutional: Reports: No Symptoms HEENT: Reports: No Symptoms Respiratory: Reports: No Symptoms Cardiovascular: Reports: No Symptoms Endocrine: Reports: No Symptoms GI/Abdominal: Reports: Abdominal Pain : Reports: No Symptoms Musculoskeletal: Reports: No Symptoms Skin: Reports: No Symptoms Neurological: Reports: No Symptoms Psychiatric: Reports: No Symptoms Hematologic/Lymphatic: Reports: No Symptoms Immunologic: Reports: No Symptoms ED EXAM, GI/ABD - Physical Exam Exam: See Below Exam Limited By: No Limitations General Appearance: Alert, WD/WN, Mild Distress Eyes: Bilateral: EOMI Head: Atraumatic, Normocephalic Respiratory/Chest: No Respiratory Distress, Lungs Clear, Normal Breath Sounds Cardiovascular: Normal Peripheral Pulses, Regular Rate, Rhythm GI/Abdominal Exam: Normal Bowel Sounds, Soft, Non-Tender Extremities: Normal Inspection Neurological: Alert Course - Vital Signs Last Recorded V/S: Last Vital Signs Temp 97.4 F 03/22/21 15:25 Pulse 103 H 03/22/21 17:44 Resp 18 03/22/21 17:44 BP 168/105 H 03/22/21 17:44 Pulse Ox 96 03/22/21 17:44 - Orders/Labs/Meds Labs: Laboratory Tests 03/22/21 03/22/21 Range/Units 15:41 15:41 WBC 10.13 (4.0-11.0) K/uL RBC 6.00 H (4.50-5.90) M/uL Hgb 14.0 (13.0-17.0) g/dL Hct 43.5 (38.0-50.0) % MCV 72.5 L (80.0-98.0) fL MCH 23.3 L (27.0-32.0) pg MCHC 32.2 (31.0-37.0) g/dL RDW Std Deviation 49.9 (28.0-62.0) fl RDW Coeff of Dania 20 H (11.0-15.0) % Plt Count 253 (150-400) K/uL Neut % (Auto) 76.9 (48.0-80.0) % Lymph % (Auto) 16.6 (16.0-40.0) % [place] % (Auto) 4.0 (0.0-15.0) % Eos % (Auto) 1.8 (0.0-7.0) % Baso % (Auto) 0.7 (0.0-1.5) % Neut # (Auto) 7.8 H (1.4-5.7) K/uL Lymph # (Auto) 1.7 (0.6-2.4) K/uL [place] # (Auto) 0.4 (0.0-0.8) K/uL Eos # (Auto) 0.2 (0.0-0.7) K/uL Baso # (Auto) 0.1 (0.0-0.1) K/uL Nucleated RBC % 0.0 /100WBC Nucleated RBCs # 0 K/uL Sodium 145 (136-148) mmol/L Potassium 4.2 (3.5-5.1) mmol/L Chloride 100 (98-107) mmol/L Carbon Dioxide 30.3 (21.0-32.0) mmol/L BUN 51 H (7.0-18.0) mg/dL Creatinine 7.5 H (0.8-1.3) mg/dL Est Cr Clr Drug Dosing 13.88 mL/min Estimated GFR (MDRD) 10.1 ml/min Glucose 194 H (74-106) mg/dL Calcium 8.9 (8.5-10.1) mg/dL Total Bilirubin 0.3 (0.2-1.0) mg/dL AST 30 (15-37) IU/L ALT 25 (14-63) IU/L Alkaline Phosphatase 110 (46-116) U/L Total Protein 7.7 (6.4-8.2) g/dL Albumin 3.0 L (3.4-5.0) g/dL Globulin 4.7 H (2.6-4.0) g/dL Albumin/Globulin Ratio 0.6 L (0.9-1.6) Lipase 28 L (73-393) U/L Meds: Medications Discontinued Medications Generic Name Dose Route Start Last Admin Trade Name Freq PRN Reason Stop Dose Admin Haloperidol Lactate 5 mg 03/22/21 15:32 03/22/21 15:47 Haloperidol Lactate 5 Mg/Ml Sdv IM 03/22/21 15:33 5 mg ONETIME ONE Administration Lorazepam 2 mg 03/22/21 15:32 03/22/21 15:47 Lorazepam 2 Mg/Ml Sdv IVPUSH 03/22/21 15:33 2 mg ONETIME ONE Administration - Re-Assessments/Exams Free Text/Narrative Re-Assessment/Exam: 03/22/21 18:30 Patient is awake and states pain is better. Patient will need a ride home will assist patient in go home. Patient blood pressure also improved. Departure - Departure Time of Disposition: 18:30 Disposition: Home, Self-Care 01 Condition: Good Clinical Impression: Abdominal pain - Discharge Information *PRESCRIPTION DRUG MONITORING PROGRAM REVIEWED*: Not Applicable *COPY OF PRESCRIPTION DRUG MONITORING REPORT IN PATIENT IVELISSE: Not Applicable Instructions: Abdominal Pain, Adult, [id number] Forms: ED Department Discharge Additional Instructions: The following information is given to patients seen in the emergency department who are being discharged to home. This information is to outline your options for follow-up care. We provide all patients seen in our emergency department with a follow-up referral. The need for follow-up, as well as the timing and circumstances, are variable depending upon the specifics of your emergency department visit. If you don't have a primary care physician on staff, we will provide you with a referral. We always advise you to contact your personal physician following an emergency department visit to inform them of the circumstance of the visit and for follow-up with them and/or the need for any referrals to a consulting specialist. The emergency department will also refer you to a specialist when appropriate. This referral assures that you have the opportunity for follow-up care with a specialist. All of these measure are taken in an effort to provide you with optimal care, which includes your follow-up. Under all circumstances we always encourage you to contact your private physician who remains a resource for coordinating your care. When calling for follow-up care, please make the office aware that this follow-up is from your recent emergency room visit. If for any reason you are refused follow-up, please contact the [facility] Emergency Department at and asked to speak to the emergency department charge nurse. Please follow up with your primary care physician. If you do not have a primary care physician, see below: [facility] [address] [place] [id number] [facility] [address] [place] [id number] Your seen today for abdominal pain which you have not seen for in the past multiple times. We gave you medication have also sent the pain. Blood pressure also improved. Please continue your dialysis and follow-up to primary care physician. You may have concerning signs or symptoms please return to the ED. Sepsis Event Note (ED) - Evaluation Sepsis Screening Result: No Definite Risk - Focused Exam Vital Signs: Vital Signs Temp Pulse Resp BP Pulse Ox 03/22/21 17:44 103 H 18 168/105 H 96 03/22/21 15:25 97.4 F 118 H 20 202/138 H 97 - Assessment/Plan Plan: Patient is a 35-year-old male well-known to the ED who presents occasionally for abdominal pain no vomiting. Patient is hypertensive as well states he took his blood pressure meds. We will provide pain control obtain labs and reassess patient.
[2021-03-22 16:16] LABS: CARBON DIOXIDE,CO2 30.3 mmol/L (21.0-32.0); POTASSIUM,K 4.2 mmol/L (3.5-5.1)
[2021-03-22] MEDS ORDERED: hydrALAZINE 20 MG/ML SDV IVPUSH ONE (18:36)
[2021-03-22 19:09] VITALS: BP 194/118; PULSE 78
== END 2021-03-22 19:10 | disposition home or self-care (01) ==
LOC: MW.ED 15:23
DX: R10.9 Unspecified abdominal pain (principal); R11.10 Vomiting, unspecified; K21.9 Gastro-esophageal reflux disease without esophagitis; I12.0 Hypertensive chronic kidney disease with stage 5 chronic kidney disease or end stage renal disease; E10.22 Type 1 diabetes mellitus with diabetic chronic kidney disease; N18.6 End stage renal disease; D63.1 Anemia in chronic kidney disease; E10.42 Type 1 diabetes mellitus with diabetic polyneuropathy; Z99.2 Dependence on renal dialysis; Z91.013 Allergy to seafood; Z91.018 Allergy to other foods; Z88.8 Allergy status to other drugs, medicaments and biological substances; Z88.0 Allergy status to penicillin; Z79.899 Other long term (current) drug therapy
CPT/HCPCS: 36415; 80053; 83690; 85025; 96374; 96375; 96376; 99284; J0360; J1630; J2060

== ENCOUNTER 2021-04-20 02:32 | Emergency (ER) | payer MEDICARE, MEDICAID ==
[2021-04-20] MEDS ORDERED: Ondansetron 4 MG/2 ML SDV IVPUSH ONE (02:50)
[2021-04-20] MEDS ORDERED: diphenhydrAMINE 50 MG/ML SDV IVPUSH ONE (02:50)
[2021-04-20] MEDS ORDERED: Pantoprazole 80 MG in Sodium Chloride 0.9% 20 ML IVPUSH ONE (02:55)
[2021-04-20] MEDS ORDERED: Famotidine 20 MG Tab PO ONE (02:55)
[2021-04-20] MEDS ORDERED: Famotidine 20 MG/2 ML SDV IVPUSH ONE (03:01)
[2021-04-20] MEDS ORDERED: HYDROmorphone 1 MG/ML Syringe IVPUSH ONE (03:01)
[2021-04-20 03:18] LABS: CARBON DIOXIDE,CO2 29.9 mmol/L (21.0-32.0); POTASSIUM,K 4.5 mmol/L (3.5-5.1)
--- NOTE | 2021-04-20 03:45 | PCM.EKG ---
#1 Interpretation EKG Date: 04/20/21 Time: 03:28 Rhythm: NSR Rate (Beats/Min): 101 [place]: Normal P-Wave: Present QRS: Normal ST-T: Normal (T wave [id number] leads I, aVL, V5-V6 (Change from prior)) QT: Normal Comparison: Change From Previous EKG (04/04/21) EKG Interpretation Comments: Sinus Rhythm with lateral t wave inversions
--- NOTE | 2021-04-20 04:38 | EDM.PDOC ---
ED HPI GENERAL MEDICAL PROBLEM - General Chief Complaint: Abdominal Pain Stated Complaint: ABDOMINAL PAIN Time Seen by Provider: 04/20/21 02:49 - History of Present Illness INITIAL COMMENTS - FREE TEXT/NARRATIVE: CHIEF COMPLAINT(S): Abdominal pain HISTORY OF PRESENT ILLNESS: This is a 36-year-old man with a past medical history of recurrent coffee-ground emesis with history of esophagitis, gastritis, uncontrolled diabetes mellitus, gastroparesis, end-stage renal disease on hemodialysis, Thursday, , Thursday and uncontrolled hypertension who comes to the emergency department with a chief complaint of abdominal pain. At this time he states that he has continued abdominal pain which he describes as epigastric rated 10 out of 10 without any radiation. He denies any melena, hematochezia. He describes the pain as sharp. He states that there is no relieving factors and he has continued vomiting with blood in it. He states that his vomit is streaked with blood and is not pasquale hematemesis or coffee-ground emesis. There are no aggravating factors. He denies any other symptoms such as fever, chills, chest pain, shortness of breath. He did not miss hemodialysis. REVIEW OF SYSTEMS: Constitutional: Denies fever, chills. Eyes: Denies eye pain Ears, Nose, Mouth, & Throat: Denies earache Cardiovascular: Denies chest pain Respiratory: Denies shortness of breath Gastrointestinal: Positive for abdominal pain, nausea, vomiting, bloody vomit. Denies diarrhea, hematochezia, melena Genitourinary: Denies hematuria, anuria Skin:Denies a rash MSK: Denies joint pain Neurological: Denies blurred vision Psychiatric: Denies depression PAST MEDICAL HISTORY: As per history of present illness and as reviewed below otherwise noncontributory. SURGICAL HISTORY: As per history of present illness and as reviewed below otherwise noncontributory. SOCIAL HISTORY: As per history of present illness and as reviewed below otherwise noncontributory. FAMILY HISTORY: As per history of present illness and as reviewed below otherwise noncontributory. EXAMINATION OF ORGAN SYSTEMS/BODY AREAS: Constitutional: Blood pressure was 204/124, heart rate 106, respiratory rate 20 with an oxygen saturation 9 9% on room air. Temperature 36.2 General: Young man who appears to be in a moderate amount of pain. The patient was whining. psychiatric: Anxious appearing Eyes: No scleral icterus or conjunctival erythema ENMT: Dry mucous membranes. No pharyngeal erythema. Cardiovascular: Tachycardic but regular no gallops, murmurs, or rubs. Bilateral upper extremity pulses symmetric and intact. No peripheral edema. No JVD. Left upper extremity AV fistula with a palpable thrill Respiratory: Lungs clear to auscultation bilaterally. No wheezes, rales, or rhonchi. Gastrointestinal: Soft, diffusely tender to palpation. No rebound or guarding. Normoactive bowel sounds negative Interiano's and McBurney's. 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 Skin: No lesions or abrasions. Neurological: Alert, GCS 15 MEDICAL DECISION MAKING AND COURSE IN THE ED WITH INTERPRETATION/REVIEW OF DIAGNOSTIC STUDIES: This is a 36-year-old man with a past medical history of recurrent coffee-ground emesis with history of esophagitis, gastritis, uncontrolled diabetes mellitus, gastroparesis, end-stage renal disease on hemodialysis, Thursday, , Thursday and uncontrolled hypertension who comes to the emergency department with a chief complaint of abdominal pain and vomiting. The patient is well-known to our emergency department and has had multiple evaluations by GI in the past with resultant esophagitis and gastritis. We will provide the patient with symptomatic treatment including Benadryl, Zofran, Dilaudid, pantoprazole and famotidine. We will reevaluate for p.o. toleration. Given the patient has a hemodialysis we will obtain labs including CBC, CMP, troponin, EKG. At this time the patient is not hypoxic does not appear to be fluid overloaded and is speaking in full sentences therefore I do not believe the patient requires urgent or emergent hemodialysis just based on clinical impression. Laboratory: CBC reveals a normocytic anemia with a hemoglobin of 11.5 and hematocrit of 35.7 otherwise unremarkable. INR is normal. CMP is unremarkable except for elevated BUN at 48 and creatinine of 8.6. Hyperglycemia at 144. Lipase is normal. Troponin is negative. EKG was obtained which did not reveal any acute signs of ischemia peaked T waves or QRS widening. This patient was observed in the emergency department and was able to tolerate fluids by mouth. I did discuss with patient at this time that he be stable for discharge. I did encourage the patient to follow-up with his primary care physician for further management of his gastroparesis and esophagitis. He was amenable discharge at this time and had no further questions. He was given strict return precautions and had no further questions. DISPOSITION: Patient was discharged home in stable condition. CONDITION: Fair PROCEDURES: None FINAL IMPRESSION(S)/DIAGNOSES: 1. Acute on chronic abdominal pain secondary to gastroparesis, gastritis and esophagitis 2. Uncontrolled Hypertension epigastric Pain Score (Numeric/FACES): 8 - Related Data Allergies Allergy/AdvReac Type Severity Reaction Status Date / Time iodine Allergy Severe Anaphylactic Verified 04/20/21 02:44 Shock Penicillins Allergy Severe Anaphylactic Verified 04/20/21 02:44 Shock shrimp Allergy Severe Swelling Verified 04/20/21 02:44 haloperidol [From Haldol] Allergy Cannot Verified 04/20/21 02:44 Remember shellfish derived Allergy Anaphylactic Verified 04/20/21 02:44 Shock gluten AdvReac Mild Muscle Uncoded 04/20/21 03:21 Aches Home Meds: Home Meds Insulin Aspart [NovoLOG] 0 unit SUBCUT .UP TO 60 UN DAILY 09/30/19 [History] Insulin Glarg,Human.Rec.Analog [Lantus] 50 mg SUBCUT DAILY 12/07/19 [History] Furosemide 80 mg PO DAILY 10/30/20 [History] Pantoprazole Sodium [Protonix] 40 mg PO BID 10/30/20 [History] Labetalol [Normodyne] 600 mg PO QID 01/02/21 [History] NIFEdipine [Nifedipine ER] 60 mg PO Q8H 01/02/21 [History] Calcium Acetate 667 mg PO TID 04/04/21 [History] Past Medical History - Past Health History Medical/Surgical History: Denies Medical/Surgical History HEENT History: Reports: Impaired Vision Other HEENT History: blind right eye Cardiovascular History: Reports: High Cholesterol, Hypertension Respiratory History: Reports: None Gastrointestinal History: Reports: Gastritis, GERD, Hiatal Hernia, PUD, Other (See Below) Other Gastrointestinal History: h/o gastric ulcers, h/o hiatal hernia; reportedly has a history of gastroparesis gastroparesis Genitourinary History: Reports: Dialysis, Other (See Below) Musculoskeletal History: Reports: Amputation Other Musculoskeletal History: RLE Neurological History: Reports: Neuropathy, Diabetic Other Neuro History: stroke Psychiatric History: Reports: Anxiety Endocrine/Metabolic History: Reports: Diabetes, Type I Other Endocrine/Metabolic History: brittle diabetic. 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 Home School Coordinator: None Hematologic History: Reports: Anemia Immunologic History: Reports: None Oncologic (Cancer) History: Reports: None Dermatologic History: Reports: Other (See Below) Other Dermatologic History: diabetic foot ulcers - Infectious Disease History Infectious Disease History: Reports: Chicken Pox, MRSA, Novel Coronavirus Other Infectious Disease History: Covid-19 - Past Surgical History Head Surgeries/Procedures: Reports: None HEENT Surgical History: Reports: None Cardiovascular Surgical History: Reports: Vascular Surgery Respiratory Surgical History: Reports: None GI Surgical History: Reports: Colonoscopy, EGD Male Surgical History: Reports: None Other Male Surgeries/Procedures: AV fistula, L forearm Endocrine Surgical History: Reports: None Neurological Surgical History: Reports: None Musculoskeletal Surgical History: Reports: Amputation Other Musculoskeletal Surgeries/Procedures:: right BKA Oncologic Surgical History: Reports: None Dermatological Surgical History: Reports: None Social & Family History - Family History Family Medical History: No Pertinent Family History Cardiac: Reports: High Cholesterol, Hypertension OBGYN: Reports: Neurological: Reports: None Psychiatric: Reports: Anxiety - Tobacco Use Tobacco Use Status *Q: Never Tobacco User Second Hand Smoke Exposure: No - Caffeine Use Caffeine Use: Reports: None Other Caffeine Use: daily Caffeine Use Comment: patient is uncooperated - Recreational Drug Use Recreational Drug Use: No - Living Situation & Occupation Living situation: Reports: Single, with Family (Cousin) Occupation: Unemployed ED ROS GENERAL - Review of Systems Review Of Systems: See Below ED EXAM, GENERAL - Physical Exam Exam: See Below Course - Vital Signs Last Recorded V/S: Last Vital Signs Temp 36.2 C 04/20/21 02:42 Pulse 90 04/20/21 05:10 Resp 15 04/20/21 05:10 BP 174/100 H 04/20/21 05:10 Pulse Ox 100 04/20/21 05:10 - Orders/Labs/Meds Labs: Laboratory Tests 04/20/21 04/20/21 04/20/21 Range/Units 02:53 02:53 02:53 WBC 9.91 (4.0-11.0) K/uL RBC 5.09 (4.50-5.90) M/uL Hgb 11.5 L (13.0-17.0) g/dL Hct 35.7 L (38.0-50.0) % MCV 70.1 L (80.0-98.0) fL MCH 22.6 L (27.0-32.0) pg MCHC 32.2 (31.0-37.0) g/dL RDW Std Deviation 42.4 (28.0-62.0) fl RDW Coeff of Dania 17 H (11.0-15.0) % Plt Count 284 (150-400) K/uL MPV 10.50 (7.40-12.00) fL Neut % (Auto) 65.6 (48.0-80.0) % Lymph % (Auto) 22.2 (16.0-40.0) % Haskell % (Auto) 7.3 (0.0-15.0) % Eos % (Auto) 4.3 (0.0-7.0) % Baso % (Auto) 0.6 (0.0-1.5) % Neut # (Auto) 6.5 H (1.4-5.7) K/uL Lymph # (Auto) 2.2 (0.6-2.4) K/uL Haskell # (Auto) 0.7 (0.0-0.8) K/uL Eos # (Auto) 0.4 (0.0-0.7) K/uL Baso # (Auto) 0.1 (0.0-0.1) K/uL Nucleated RBC % 0.0 /100WBC Nucleated RBCs # 0 K/uL INR 1.03 Sodium 140 (136-148) mmol/L Potassium 4.5 (3.5-5.1) mmol/L Chloride 101 (98-107) mmol/L Carbon Dioxide 29.9 (21.0-32.0) mmol/L BUN 48 H (7.0-18.0) mg/dL Creatinine 8.6 H (0.8-1.3) mg/dL Est Cr Clr Drug Dosing 11.60 mL/min Estimated GFR (MDRD) 8.6 ml/min Glucose 144 H (74-106) mg/dL Lactic Acid (0.4-2.0) mmol/L Calcium 8.5 (8.5-10.1) mg/dL Magnesium 2.0 (1.8-2.4) mg/dL Total Bilirubin 0.3 (0.2-1.0) mg/dL AST 27 (15-37) IU/L ALT 24 (14-63) IU/L Alkaline Phosphatase 100 (46-116) U/L Troponin I (0.000-0.056) ng/mL Total Protein 7.3 (6.4-8.2) g/dL Albumin 3.4 (3.4-5.0) g/dL Globulin 3.9 (2.6-4.0) g/dL Albumin/Globulin Ratio 0.9 (0.9-1.6) Lipase 21 L (73-393) U/L 04/20/21 04/20/21 Range/Units 02:56 03:10 WBC (4.0-11.0) K/uL RBC (4.50-5.90) M/uL Hgb (13.0-17.0) g/dL Hct (38.0-50.0) % MCV (80.0-98.0) fL MCH (27.0-32.0) pg MCHC (31.0-37.0) g/dL RDW Std Deviation (28.0-62.0) fl RDW Coeff of Dania (11.0-15.0) % Plt Count (150-400) K/uL MPV (7.40-12.00) fL Neut % (Auto) (48.0-80.0) % Lymph % (Auto) (16.0-40.0) % Haskell % (Auto) (0.0-15.0) % Eos % (Auto) (0.0-7.0) % Baso % (Auto) (0.0-1.5) % Neut # (Auto) (1.4-5.7) K/uL Lymph # (Auto) (0.6-2.4) K/uL Haskell # (Auto) (0.0-0.8) K/uL Eos # (Auto) (0.0-0.7) K/uL Baso # (Auto) (0.0-0.1) K/uL Nucleated RBC % /100WBC Nucleated RBCs # K/uL INR Sodium (136-148) mmol/L Potassium (3.5-5.1) mmol/L Chloride (98-107) mmol/L Carbon Dioxide (21.0-32.0) mmol/L BUN (7.0-18.0) mg/dL Creatinine (0.8-1.3) mg/dL Est Cr Clr Drug Dosing mL/min Estimated GFR (MDRD) ml/min Glucose (74-106) mg/dL Lactic Acid 1.9 (0.4-2.0) mmol/L Calcium (8.5-10.1) mg/dL Magnesium (1.8-2.4) mg/dL Total Bilirubin (0.2-1.0) mg/dL AST (15-37) IU/L ALT (14-63) IU/L Alkaline Phosphatase (46-116) U/L Troponin I < 0.050 (0.000-0.056) ng/mL Total Protein (6.4-8.2) g/dL Albumin (3.4-5.0) g/dL Globulin (2.6-4.0) g/dL Albumin/Globulin Ratio (0.9-1.6) Lipase (73-393) U/L Meds: Medications Discontinued Medications Generic Name Dose Route Start Last Admin Trade Name Freq PRN Reason Stop Dose Admin Diphenhydramine HCl 50 mg 04/20/21 02:50 04/20/21 03:05 Diphenhydramine 50 Mg/Ml Sdv IVPUSH 04/20/21 02:51 50 mg ONETIME ONE Administration Famotidine 20 mg 04/20/21 02:55 04/20/21 03:19 Famotidine 20 Mg Tab PO 04/20/21 02:56 Not Given ONETIME ONE Famotidine 20 mg 04/20/21 03:01 04/20/21 03:05 Famotidine 20 Mg/2 Ml Sdv IVPUSH 04/20/21 03:02 20 mg ONETIME ONE Administration Hydromorphone HCl 1 mg 04/20/21 03:01 04/20/21 03:05 Hydromorphone 1 Mg/Ml Syringe IVPUSH 04/20/21 03:02 1 mg ONETIME ONE Administration Pantoprazole Sodium 80 mg/ 20 mls @ 420 mls/hr 04/20/21 02:55 04/20/21 03:05 Sodium Chloride IVPUSH 04/20/21 02:57 420 mls/hr ONETIME ONE Administration Ondansetron HCl 4 mg 04/20/21 02:50 04/20/21 03:05 Ondansetron 4 Mg/2 Ml Sdv IVPUSH 04/20/21 02:51 4 mg ONETIME ONE Administration Departure - Departure Time of Disposition: 04:37 Disposition: Home, Self-Care 01 Condition: Fair Clinical Impression: Esophagitis, Abdominal pain, Spitting up blood - Discharge Information *PRESCRIPTION DRUG MONITORING PROGRAM REVIEWED*: No *COPY OF PRESCRIPTION DRUG MONITORING REPORT IN PATIENT IVELISSE: No Instructions: Esophagitis, Abdominal Pain, Adult Referrals: PCP,None [Primary Care Provider] - Forms: ED Department Discharge Additional Instructions: Your evaluated today on an emergent basis. At this time you were able to tolerate fluids without any issue. Given that you are able to tolerate fluids this does indicate that you are able to tolerate your home medications. I recommend that you continue to take your home medications as your blood pressure was elevated. As discussed it is important that you keep your appointment for your hemodialysis and to follow-up given your continued abdominal pain and gastroparesis. If you have any worsening symptoms you are welcome to return to the emergency department. [facility] [address] [place] [id number] [address] [id number] The patient is informed of any results of their evaluation and diagnostic workup and all questions are answered. They are given discharge instructions and return precautions. The patient is stable for discharge. The patient states they understand and agree with the plan and that they will return if their symptoms get worse or if they have any new concerns. The following information is given to patients seen in the emergency department who are being discharged to home. This information is to outline your options for follow-up care. We provide all patients seen in our emergency department with a follow-up referral. The need for follow-up, as well as the timing and circumstances, are variable depending upon the specifics of your emergency department visit. If you don't have a primary care physician on staff, we will provide you with a referral. We always advise you to contact your personal physician following an emergency department visit to inform them of the circumstance of the visit and for follow-up with them and/or the need for any referrals to a consulting specialist. The emergency department will also refer you to a specialist when appropriate. This referral assures that you have the opportunity for follow-up care with a specialist. All of these measure are taken in an effort to provide you with optimal care, which includes your follow-up. Under all circumstances we always encourage you to contact your private physician who remains a resource for coordinating your care. When calling for follow-up care, please make the office aware that this follow-up is from your recent emergency room visit. If for any reason you are refused follow-up, please contact the [facility] Emergency Department at and asked to speak to the emergency department charge nurse. Sepsis Event Note (ED) - Evaluation Sepsis Screening Result: No Definite Risk - Focused Exam Vital Signs: Vital Signs Temp Pulse Resp BP Pulse Ox 04/20/21 05:10 90 15 174/100 H 100 04/20/21 03:36 99 12 185/102 H 100 04/20/21 02:42 36.2 C 106 H 20 204/124 H 99
[2021-04-20 05:11] VITALS: BP 174/100; PULSE 90
== END 2021-04-20 05:00 | disposition home or self-care (01) ==
LOC: MW.ED 02:32
DX: K20.90 Esophagitis, unspecified without bleeding (principal); K92.0 Hematemesis; I12.9 Hypertensive chronic kidney disease with stage 1 through stage 4 chronic kidney disease, or unspecified chronic kidney disease; E10.22 Type 1 diabetes mellitus with diabetic chronic kidney disease; K31.84 Gastroparesis; E10.43 Type 1 diabetes mellitus with diabetic autonomic (poly)neuropathy; N18.9 Chronic kidney disease, unspecified; E78.00 Pure hypercholesterolemia, unspecified; Z88.0 Allergy status to penicillin; Z91.018 Allergy to other foods; Z91.013 Allergy to seafood; Z88.5 Allergy status to narcotic agent; Z79.4 Long term (current) use of insulin
CPT/HCPCS: 36415; 80053; 83605; 83690; 83735; 84484; 85025; 85610; 93005; 96374; 96375; 99284; C9113; J1170; J1200; J2405; J3490

== ENCOUNTER 2021-04-20 05:14 | Emergency (ER) | payer MEDICARE, MEDICAID ==
[2021-04-20] MEDS ORDERED: Metoclopramide 10 MG/2 ML SDV IM ONE (05:41)
[2021-04-20] MEDS ORDERED: hydrALAZINE 20 MG/ML SDV IVPUSH ONE (05:45)
--- NOTE | 2021-04-20 06:22 | EDM.PDOC ---
ED HPI GENERAL MEDICAL PROBLEM - General Chief Complaint: Abdominal Pain Stated Complaint: ABDOMINAL PAIN Time Seen by Provider: 04/20/21 05:40 - History of Present Illness INITIAL COMMENTS - FREE TEXT/NARRATIVE: CHIEF COMPLAINT(S): Abdominal pain HISTORY OF PRESENT ILLNESS: This is a 36-year-old man with a past medical history of recurrent coffee-ground emesis with history of esophagitis, gastritis, uncontrolled diabetes mellitus, gastroparesis, end-stage renal disease on hemodialysis, Thursday, , Thursday and uncontrolled hypertension who comes to the emergency department with a chief complaint of abdominal pain. The patient was evaluated today by myself and discharged as the patient was able to tolerate fluids however upon discharge and in the waiting room while waiting for a ride the patient had continued watery vomit. At this time he states that he has continued abdominal pain which he describes as epigastric rated 10 out of 10 without any radiation. He denies any melena, hematochezia. He states that the main reason he came this time and the time before is because he is unable to tolerate his medications at home. He states that this pain is unrelenting and nothing seems to relieve it. I did have a discussion with the patient regarding his history of gastroparesis. I did discuss with him that it may be important to get a referral to GI to be evaluated for a gastric stimulator. He states that he has been evaluated and nobody would put it in him. He states that he does not know where to look or get help for this as he does not like being in the hospital for this either. He denies any other symptoms such as fever, chills, chest pain, shortness of breath. He did not miss hemodialysis. REVIEW OF SYSTEMS: Constitutional: Denies fever, chills. Eyes: Denies eye pain Ears, Nose, Mouth, & Throat: Denies earache Cardiovascular: Denies chest pain Respiratory: Denies shortness of breath Gastrointestinal: Positive for abdominal pain, nausea, vomiting, coffee-ground emesis. Denies diarrhea, hematochezia, melena Genitourinary: Denies hematuria, anuria Skin:Denies a rash MSK: Denies joint pain Neurological: Denies blurred vision Psychiatric: Denies depression PAST MEDICAL HISTORY: As per history of present illness and as reviewed below otherwise noncontributory. SURGICAL HISTORY: As per history of present illness and as reviewed below otherwise noncontributory. SOCIAL HISTORY: As per history of present illness and as reviewed below otherwise noncontributory. FAMILY HISTORY: As per history of present illness and as reviewed below otherwise noncontributory. EXAMINATION OF ORGAN SYSTEMS/BODY AREAS: Constitutional: Blood pressure was 210/140, heart rate 105, respiratory rate 20 with an oxygen saturation 97% on room air. Temperature 36.4 General: Young man who appears to be in a moderate amount of pain. The patient was whining. psychiatric: Anxious appearing and tearful. Cooperative Eyes: No scleral icterus or conjunctival erythema ENMT: Dry mucous membranes. No pharyngeal erythema. Cardiovascular: Tachycardic but regular no gallops, murmurs, or rubs. Bilateral upper extremity pulses symmetric and intact. No peripheral edema. No JVD. Left upper extremity AV fistula with a palpable thrill Respiratory: Lungs clear to auscultation bilaterally. No wheezes, rales, or rhonchi. Gastrointestinal: Soft, diffusely tender to palpation. No rebound or guarding. 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 Skin: No lesions or abrasions. Neurological: Alert, GCS 15 MEDICAL DECISION MAKING AND COURSE IN THE ED WITH INTERPRETATION/REVIEW OF DIAGNOSTIC STUDIES: This is a 36-year-old man with a past medical history of recurrent coffee-ground emesis with history of esophagitis, gastritis, uncontrolled diabetes mellitus, gastroparesis, end-stage renal disease on hemodialysis, Thursday, , Thursday and uncontrolled hypertension who comes to the emergency department with a chief complaint of abdominal pain and vomiting. The patient was evaluated by myself prior and all of his labs at that time were at baseline and there was nothing remarkable. We did treat the patient and he was able to tolerate fluids however he has continued vomiting. Given the intractable vomiting we will provide the patient with his home dose of metoclopramide via IM route. Given the hypertension we will provide the patient with 20 mg of IV hydralazine. I did have a lengthy discussion with the patient at this time regarding advocating for himself as he has had multiple visits and multiple transfers for intractable vomiting and given his history of gastroparesis he may need further intervention to help prevent recurrent admission and recurrent symptomatology. I did discuss with him that I could contact our hospitalist for possible observation admission here at our hospital. He was amenable to this plan. I do not believe any further labs or imaging are indicated given the recent work-up. Laboratory from recent visit revealed a microcytic anemia with a hemoglobin of 11.5 and hematocrit of 35.7 with an MCV of 70.9 otherwise unremarkable. INR was normal. CMP reveals elevated BUN at 48 and a creatinine of 8.6 with a normal potassium at 4.5, hyperglycemia at 144, troponin was negative. Otherwise unremarkable. I contacted our hospitalist Dr. Means stated that given that we do not have any knife blade polisher or hemodialysis capability given the patient will likely require more than 1 day of admission we are unable to safely admit this patient at our hospital and recommends transfer. Therefore I contacted [facility] in [place] where the patient's knife blade polisher currently resides and has had his care in the past and I spoke with Dr. Vance who accepted the patient for transfer and admission. DISPOSITION: Patient was transferred to [facility] in stable condition CONDITION: Fair PROCEDURES: None FINAL IMPRESSION(S)/DIAGNOSES: 1. Acute on chronic abdominal pain secondary to gastroparesis, gastritis and esophagitis 2. Acute inability to tolerate p.o. likely secondary to #1 3. Uncontrolled hypertension - Related Data Allergies Allergy/AdvReac Type Severity Reaction Status Date / Time iodine Allergy Severe Anaphylactic Verified 04/20/21 02:44 Shock Penicillins Allergy Severe Anaphylactic Verified 04/20/21 02:44 Shock shrimp Allergy Severe Swelling Verified 04/20/21 02:44 haloperidol [From Haldol] Allergy Cannot Verified 04/20/21 02:44 Remember shellfish derived Allergy Anaphylactic Verified 04/20/21 02:44 Shock gluten AdvReac Mild Muscle Uncoded 04/20/21 03:21 Aches Home Meds: Home Meds Insulin Aspart [NovoLOG] 0 unit SUBCUT .UP TO 60 UN DAILY 09/30/19 [History] Insulin Glarg,Human.Rec.Analog [Lantus] 50 mg SUBCUT DAILY 12/07/19 [History] Furosemide 80 mg PO DAILY 10/30/20 [History] Pantoprazole Sodium [Protonix] 40 mg PO BID 10/30/20 [History] Labetalol [Normodyne] 600 mg PO QID 01/02/21 [History] NIFEdipine [Nifedipine ER] 60 mg PO Q8H 01/02/21 [History] Calcium Acetate 667 mg PO TID 04/04/21 [History] Past Medical History - Past Health History Medical/Surgical History: Denies Medical/Surgical History HEENT History: Reports: Impaired Vision Other HEENT History: blind right eye Cardiovascular History: Reports: High Cholesterol, Hypertension Respiratory History: Reports: None Gastrointestinal History: Reports: Gastritis, GERD, Hiatal Hernia, PUD, Other (See Below) Other Gastrointestinal History: h/o gastric ulcers, h/o hiatal hernia; reportedly has a history of gastroparesis gastroparesis Genitourinary History: Reports: Dialysis, Other (See Below) Musculoskeletal History: Reports: Amputation Other Musculoskeletal History: RLE Neurological History: Reports: Neuropathy, Diabetic Other Neuro History: stroke Psychiatric History: Reports: Anxiety Endocrine/Metabolic History: Reports: Diabetes, Type I Other Endocrine/Metabolic History: brittle diabetic. 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 Vocational Horticulture Instructor: None Hematologic History: Reports: Anemia Immunologic History: Reports: None Oncologic (Cancer) History: Reports: None Dermatologic History: Reports: Other (See Below) Other Dermatologic History: diabetic foot ulcers - Infectious Disease History Infectious Disease History: Reports: Chicken Pox, MRSA, Novel Coronavirus Other Infectious Disease History: Covid-19 - Past Surgical History Head Surgeries/Procedures: Reports: None HEENT Surgical History: Reports: None Cardiovascular Surgical History: Reports: Vascular Surgery Respiratory Surgical History: Reports: None GI Surgical History: Reports: Colonoscopy, EGD Male Surgical History: Reports: None Other Male Surgeries/Procedures: AV fistula, L forearm Endocrine Surgical History: Reports: None Neurological Surgical History: Reports: None Musculoskeletal Surgical History: Reports: Amputation Other Musculoskeletal Surgeries/Procedures:: right BKA Oncologic Surgical History: Reports: None Dermatological Surgical History: Reports: None Social & Family History - Family History Family Medical History: No Pertinent Family History Cardiac: Reports: High Cholesterol, Hypertension OBGYN: Reports: Neurological: Reports: None Psychiatric: Reports: Anxiety - Tobacco Use Tobacco Use Status *Q: Never Tobacco User - Caffeine Use Caffeine Use: Reports: None Other Caffeine Use: daily Caffeine Use Comment: patient is uncooperated - Recreational Drug Use Recreational Drug Use: Yes Drug Use in Last 12 Months: No - Living Situation & Occupation Living situation: Reports: Single, with Family (Cousin) Occupation: Unemployed ED ROS GENERAL - Review of Systems Review Of Systems: See Below ED EXAM, GENERAL - Physical Exam Exam: See Below Course - Vital Signs Last Recorded V/S: Last Vital Signs Temp 36.4 C 04/20/21 05:20 Pulse 105 H 04/20/21 05:20 Resp 20 04/20/21 05:20 BP 188/120 H 04/20/21 05:54 Pulse Ox 97 04/20/21 05:20 - Orders/Labs/Meds Meds: Medications Discontinued Medications Generic Name Dose Route Start Last Admin Trade Name Freq PRN Reason Stop Dose Admin Hydralazine HCl 20 mg 04/20/21 05:45 04/20/21 06:15 Hydralazine 20 Mg/Ml Sdv IVPUSH 04/20/21 05:46 20 mg ONETIME ONE Administration Metoclopramide HCl 10 mg 04/20/21 05:41 04/20/21 05:51 Metoclopramide 10 Mg/2 Ml Sdv IM 04/20/21 05:42 10 mg ONETIME ONE Administration Departure - Departure Time of Disposition: 06:21 Disposition: DC/Tfer to Acute Hospital 02 Condition: Fair Clinical Impression: Abdominal pain, Cyclical vomiting - Discharge Information Referrals: PCP,None [Primary Care Provider] - Sepsis Event Note (ED) - Evaluation Sepsis Screening Result: No Definite Risk - Focused Exam Vital Signs: Vital Signs Temp Pulse Resp BP Pulse Ox 04/20/21 05:54 188/120 H 04/20/21 05:20 36.4 C 105 H 20 210/140 H 97
[2021-04-20] MEDS ORDERED: Glucagon,Human Recombinant 1 MG Vial IM PRN ×2 (07:06→07:42)
[2021-04-20] MEDS ORDERED: 50% Dextrose in Water 50 ML Syringe IVPUSH PRN ×2 (07:06→07:42)
[2021-04-20] MEDS ORDERED: Insulin Aspart 100 Units/ML 3 ML Pen SUBCUT STA (07:06)
[2021-04-20] MEDS ORDERED: Insulin Regular, Human 100 Units/ML 10 ML Vial ONE (07:27)
[2021-04-20] MEDS ORDERED: Insulin Regular, Human 100 Units/ML 10 ML Vial SUBCUT ONE (07:28)
[2021-04-20] MEDS ORDERED: Insulin Regular, Human 100 Units/ML 10 ML Vial IVPUSH ONE (07:42)
[2021-04-20 08:36] VITALS: BP 157/102; PULSE 117
== END 2021-04-20 08:37 ==
LOC: MW.ED 05:14
DX: R10.9 Unspecified abdominal pain (principal); G89.29 Other chronic pain; G43.A0 Cyclical vomiting, in migraine, not intractable; R63.0 Anorexia; I12.0 Hypertensive chronic kidney disease with stage 5 chronic kidney disease or end stage renal disease; E10.22 Type 1 diabetes mellitus with diabetic chronic kidney disease; E10.43 Type 1 diabetes mellitus with diabetic autonomic (poly)neuropathy; K31.84 Gastroparesis; N18.6 End stage renal disease; E10.10 Type 1 diabetes mellitus with ketoacidosis without coma; E78.00 Pure hypercholesterolemia, unspecified; Z88.0 Allergy status to penicillin; Z88.8 Allergy status to other drugs, medicaments and biological substances; Z91.018 Allergy to other foods; Z91.013 Allergy to seafood; Z88.5 Allergy status to narcotic agent
CPT/HCPCS: 82947; 96372; 96374; 99284; J0360; J2765; J1815-GY

== ENCOUNTER 2021-04-28 19:50 | Emergency (ER) | payer MEDICARE, MEDICAID ==
[2021-04-28] MEDS ORDERED: Sodium Chloride 0.9% 2.5 ML Syringe FLUSH PRN (19:59)
[2021-04-28] MEDS ORDERED: Sodium Chloride 0.9% 1,000 ML IV ONE (19:59)
[2021-04-28] MEDS ORDERED: Sodium Chloride 0.9% 10 ML Syringe FLUSH PRN (19:59)
[2021-04-28 20:45] LABS: BLOOD UREA NITROGEN,BUN 51 mg/dL (7.0-18.0); CARBON DIOXIDE,CO2 24.1 mmol/L (21.0-32.0); CHLORIDE,CL 106 mmol/L (98-107); GLUCOSE RANDOM 158 mg/dL (74-106); SODIUM,NA 142 mmol/L (136-148)
--- NOTE | 2021-04-28 20:53 | CR ---
Indication: Weakness. Technique: AP portable view of the chest. Comparison: January 02, 2021. Findings: Right-sided infusion catheter is identified. The heart is normal in size. The lungs are clear on. No infiltrate, pleural effusion, or pneumothorax is identified. Impression: Stable chest x-ray Dictated by Elva Wong MD @ 04/28/2021 8:52:[address] Elva Wong @ Apr 28 2021 8:52PM
--- NOTE | 2021-04-28 21:15 | EDM.PDOC ---
ED HPI GENERAL MEDICAL PROBLEM - General Chief Complaint: General Stated Complaint: WEAKNESS Time Seen by Provider: 04/28/21 20:01 - History of Present Illness INITIAL COMMENTS - FREE TEXT/NARRATIVE: HISTORY AND PHYSICAL: History of present illness: This is a 36-year-old gentleman with history significant for hypertension, diabetes, esophagitis, gastritis, end-stage renal disease, anemia, on dialysis q. Thursday, presents ER today secondary to generalized weakness, fatigue and dizziness and was noted to have a low blood pressure at home. In the ED upon arrival he was noted to have a blood pressure of 90/40 in triage. Patient denies any recent fevers, shakes, chills. Patient reports nausea but no vomiting or diarrhea. Patient denies any melena or bright red blood per rectum. Patient has any coffee-ground emesis or hematemesis. Patient denies any dysuria, frequency, urgency. Patient reports he does make urine at home. Patient reports to be tolerating p.o. solids and liquids well. Patient denies any chest pain or shortness of breath. Patient has a syncope. Patient has any abdominal pain. Patient has any cough cold or rhinorrhea. Patient denies any sore throat. Patient reports generalized weakness malaise and not feeling well. Review of systems: As per history of present illness and below otherwise all systems reviewed and negative. Past medical history: As per history of present illness and as reviewed below otherwise noncontributory. Surgical history: As per history of present illness and as reviewed below otherwise noncontributory. Social history: No reported history of drug abuse. Family history: As per history of present illness and as reviewed below otherwise noncontributory. Physical exam: This patient was seen and evaluated during the 2019 SARS-CoV-2 novel coronavirus pandemic period. Community viral transmission is ongoing at time of this encounter and the emergency department is operating under pandemic response procedures. Constitutional: Patient is oriented to person, place, and time. Appears well- developed and well-nourished. No distress. HEENT: Dry mucous membranes Head: Normocephalic and atraumatic Eyes: Right eye exhibits no discharge. Left eye exhibits no discharge. No scleral icterus Neck: Normal range of motion. No tracheal deviation present. Cardiovascular: Normal rate and regular rhythm. Pulmonary: Effort normal, no respiratory distress. Abd: Soft, nondistended, no rebound/guarding, no psoas or obturator signs, no tenderness at Mcberney's point, no Interiano's sign. Pt does not present with an exam that would be consistent with an acute surgical abdomen at this time Musculoskeletal: Normal range of motion Neurologic: Alert and oriented to person, place and time. Skin: [place], warm and dry. Psychiatric: Normal mood and affect. Behavior is normal. Judgment and thought content normal. Nursing note and vital signs have been reviewed Rectal exam: Brown heme-negative stool Assessment and plan: This is a 36-year-old gentleman with history of hypertension, diabetes, end- stage renal disease who presents to the ER today secondary to generalized weakness and extremely low blood pressure. At baseline, the patient is extremely hypertensive with a blood pressure in the 200/100 range. Today the blood pressure was 90/40. Patient clinically looked dehydrated to me. Patient reports he has been tolerating p.o. solids and liquids well. Patient reports he has been making urine. Patient did miss his dialysis on Thursday secondary to his dialysis being at [place] and it was 2 hours away and was unable to get anyone to drive him there. Patient was noted to have a hemoglobin of 8.5 which is approximately 3 g lower than the level of 11.5 that was noted on April 20. Given his low hemoglobin and his hypertension, the patient was given 1 L of NSS with some improvement in his blood pressure to 105/60. Patient was then also ordered 2 units of PRBCs to be given. Given his anemia, with unclear etiology given that negative rectal exam, his hypertension and symptoms I feel the patient will need to be admitted for observation of his blood pressure and make sure that his hemoglobin stabilizes. I have contacted [facility] and they do not have any bed availability at this time. I have contacted [facility] and they are unable to assist do not have any bed availability at this time. I have contacted [facility] and discussed the case with and she is agreed to accept patient and assist us with management as an inpatient. Critical Care: The high probability of sudden, clinically significant deterioration in the patient's condition required the highest level of my preparedness to intervene urgently. The services I provided to this patient were to treat and/or prevent clinically significant deterioration. Services included the following: chart data review, reviewing nursing notes and/or old charts, documentation time, performance consultant collaboration regarding findings and treatment options, medication orders and management, direct patient care, vital sign assessments and ordering, interpreting and reviewing diagnostic studies/lab tests. Aggregate critical care time includes only time during which I was engaged inwork directly related to the patient's care, as described above, whether at the bedside or elsewhere in the Emergency Department. It did not include time spent performing other reported procedures or the services of residents, students, nurses or physician assistants. Critical Care Time: 35 minutes Definitive disposition and diagnosis as appropriate pending reevaluation and review of above. - Related Data Allergies Allergy/AdvReac Type Severity Reaction Status Date / Time iodine Allergy Severe Anaphylactic Verified 04/28/21 19:59 Shock Penicillins Allergy Severe Anaphylactic Verified 04/28/21 19:59 Shock shrimp Allergy Severe Swelling Verified 04/28/21 19:59 haloperidol [From Haldol] Allergy Cannot Verified 04/28/21 19:59 Remember shellfish derived Allergy Anaphylactic Verified 04/28/21 19:59 Shock gluten AdvReac Mild Muscle Uncoded 04/28/21 19:59 Aches Home Meds: Home Meds Insulin Aspart [NovoLOG] 0 unit SUBCUT .UP TO 60 UN DAILY 09/30/19 [History] Insulin Glarg,Human.Rec.Analog [Lantus] 50 mg SUBCUT DAILY 12/07/19 [History] Furosemide 80 mg PO DAILY 10/30/20 [History] Pantoprazole Sodium [Protonix] 40 mg PO BID 10/30/20 [History] Labetalol [Normodyne] 600 mg PO QID 01/02/21 [History] NIFEdipine [Nifedipine ER] 60 mg PO Q8H 01/02/21 [History] Calcium Acetate 667 mg PO TID 04/04/21 [History] Past Medical History - Past Health History Medical/Surgical History: Denies Medical/Surgical History HEENT History: Reports: Impaired Vision Other HEENT History: blind right eye Cardiovascular History: Reports: High Cholesterol, Hypertension Respiratory History: Reports: None Gastrointestinal History: Reports: Gastritis, GERD, Hiatal Hernia, PUD, Other (See Below) Other Gastrointestinal History: h/o gastric ulcers, h/o hiatal hernia; reportedly has a history of gastroparesis gastroparesis Genitourinary History: Reports: Dialysis, Other (See Below) Musculoskeletal History: Reports: Amputation Other Musculoskeletal History: RLE Neurological History: Reports: Neuropathy, Diabetic Other Neuro History: stroke Psychiatric History: Reports: Anxiety Endocrine/Metabolic History: Reports: Diabetes, Type I Other Endocrine/Metabolic History: brittle diabetic. 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 Pet Care Attendant: None Hematologic History: Reports: Anemia Immunologic History: Reports: None Oncologic (Cancer) History: Reports: None Dermatologic History: Reports: Other (See Below) Other Dermatologic History: diabetic foot ulcers - Infectious Disease History Infectious Disease History: Reports: Chicken Pox, MRSA, Novel Coronavirus Other Infectious Disease History: Covid-19 - Past Surgical History Head Surgeries/Procedures: Reports: None HEENT Surgical History: Reports: None Cardiovascular Surgical History: Reports: Vascular Surgery Respiratory Surgical History: Reports: None GI Surgical History: Reports: Colonoscopy, EGD Male Surgical History: Reports: None Other Male Surgeries/Procedures: AV fistula, L forearm Endocrine Surgical History: Reports: None Neurological Surgical History: Reports: None Musculoskeletal Surgical History: Reports: Amputation Other Musculoskeletal Surgeries/Procedures:: right BKA Oncologic Surgical History: Reports: None Dermatological Surgical History: Reports: None Social & Family History - Family History Family Medical History: No Pertinent Family History Cardiac: Reports: High Cholesterol, Hypertension OBGYN: Reports: Neurological: Reports: None Psychiatric: Reports: Anxiety - Caffeine Use Caffeine Use: Reports: None Other Caffeine Use: daily Caffeine Use Comment: patient is uncooperated - Living Situation & Occupation Living situation: Reports: Single, with Family (Cousin) Occupation: Unemployed ED ROS GENERAL - Review of Systems Review Of Systems: See Below ED EXAM, GENERAL - Physical Exam Exam: See Below #1 Interpretation EKG Interpretation Comments: EKG date April 28, 2021 at 8:04 PM EKG: As interpreted by ER physician: Rula: Nonspecific ST-T wave abnormalities Normal axis No evidence of ST elevation [place] Normal sinus rhythm heart rate of 75 Course - Vital Signs Last Recorded V/S: Last Vital Signs Temp 96.9 F 04/28/21 19:53 Pulse 83 04/28/21 21:29 Resp 04/28/21 19:53 BP 100/60 04/28/21 21:29 Pulse Ox 100 04/28/21 19:53 - Orders/Labs/Meds Orders: Active Orders 24 hr Category Date Time Status EKG Documentation Completion [RC] AM Care 04/28/21 19:59 Active Verify Patient Consent Obtain [RC] ASDIRECTED Care 04/28/21 20:27 Active CORONAVIRUS COVID-19 BK [MOLEC] Stat Lab 04/28/21 21:14 Ordered RED BLOOD CELLS LP [BBK] Stat Lab 04/28/21 20:36 Results TYPE AND SCREEN [BBK] Stat Lab 04/28/21 20:36 Results UA W/FRANTZ RFLX IF INDICATED [URIN] Stat Lab 04/28/21 19:59 Ordered Sodium Chloride 0.9% [Saline Flush] Med 04/28/21 19:59 Active 10 ml FLUSH ASDIRECTED PRN Sodium Chloride 0.9% [Saline Flush] Med 04/28/21 19:59 Active 2.5 ml FLUSH ASDIRECTED PRN Saline Lock Insert [OM.PC] Stat Oth 04/28/21 19:59 Ordered Transfuse Red Blood Cells [COMM] Stat Oth 04/28/21 20:26 Ordered Medication Orders Sodium Chloride (Sodium Chloride 0.9% 10 Ml Syringe) 10 ml FLUSH ASDIRECTED PRN PRN Reason: Keep Vein Open Sodium Chloride (Sodium Chloride 0.9% 2.5 Ml Syringe) 2.5 ml FLUSH ASDIRECTED PRN PRN Reason: Keep Vein Open Labs: Laboratory Tests 04/28/21 04/28/21 04/28/21 Range/Units 20:05 20:05 20:36 WBC 7.19 (4.0-11.0) K/uL RBC 3.77 L (4.50-5.90) M/uL Hgb 8.5 L (13.0-17.0) g/dL Hct 26.6 L (38.0-50.0) % MCV 70.6 L (80.0-98.0) fL MCH 22.5 L (27.0-32.0) pg MCHC 32.0 (31.0-37.0) g/dL RDW Std Deviation 42.8 (28.0-62.0) fl RDW Coeff of Dania 17 H (11.0-15.0) % Plt Count 277 (150-400) K/uL MPV 10.30 (7.40-12.00) fL Neut % (Auto) 59.8 (48.0-80.0) % Lymph % (Auto) 25.6 (16.0-40.0) % Kinney % (Auto) 6.1 (0.0-15.0) % Eos % (Auto) 8.1 H (0.0-7.0) % Baso % (Auto) 0.4 (0.0-1.5) % Neut # (Auto) 4.3 (1.4-5.7) K/uL Lymph # (Auto) 1.8 (0.6-2.4) K/uL Kinney # (Auto) 0.4 (0.0-0.8) K/uL Eos # (Auto) 0.6 (0.0-0.7) K/uL Baso # (Auto) 0.0 (0.0-0.1) K/uL Nucleated RBC % 0.3 /100WBC Nucleated RBCs # 0 K/uL Sodium 142 (136-148) mmol/L Potassium 5.0 (3.5-5.1) mmol/L Chloride 106 (98-107) mmol/L Carbon Dioxide 24.1 (21.0-32.0) mmol/L BUN 51 H (7.0-18.0) mg/dL Creatinine 11.2 H (0.8-1.3) mg/dL Est Cr Clr Drug Dosing TNP Estimated GFR (MDRD) 6.3 ml/min Glucose 158 H (74-106) mg/dL Calcium 7.8 L (8.5-10.1) mg/dL Magnesium 2.3 (1.8-2.4) mg/dL Total Bilirubin 0.2 (0.2-1.0) mg/dL AST 24 (15-37) IU/L ALT 24 (14-63) IU/L Alkaline Phosphatase 99 (46-116) U/L Troponin I < 0.050 (0.000-0.056) ng/mL Total Protein 6.1 L (6.4-8.2) g/dL Albumin 2.7 L (3.4-5.0) g/dL Globulin 3.4 (2.6-4.0) g/dL Albumin/Globulin Ratio 0.8 L (0.9-1.6) Blood Type O POSITIVE Antibody Screen NEGATIVE Crossmatch See Detail Meds: Medications Generic Name Dose Route Start Last Admin Trade Name Lynn PRN Reason Stop Dose Admin Sodium Chloride 10 ml 04/28/21 19:59 Sodium Chloride 0.9% 10 Ml Syringe FLUSH ASDIRECTED PRN Keep Vein Open Sodium Chloride 2.5 ml 04/28/21 19:59 Sodium Chloride 0.9% 2.5 Ml Syringe FLUSH ASDIRECTED PRN Keep Vein Open Discontinued Medications Generic Name Dose Route Start Last Admin Trade Name Frekristen PRN Reason Stop Dose Admin Sodium Chloride 1,000 mls @ 999 mls/hr 04/28/21 19:59 Normal Saline IV 04/28/21 20:59 .Bolus ONE Departure - Departure Time of Disposition: 22:37 Disposition: DC/Tfer to Acute Hospital 02 Condition: Fair Clinical Impression: Hyperglycemia, Chronic renal failure, Hypotension Anemia Qualifiers: Anemia type: due to chronic kidney disease Chronic kidney disease stage: unspecified stage Qualified Code(s): N18.9 - Chronic kidney disease, unspecified - Discharge Information Referrals: Fitz Infante MD [Primary Care Provider] - Forms: ED Department Discharge Sepsis Event Note (ED) - Focused Exam Vital Signs: Vital Signs Temp Pulse Resp BP Pulse Ox 04/28/21 21:29 83 100/60 04/28/21 19:53 96.9 F 72 15 92/46 L 100 - My Orders Last 24 Hours: My Active Orders 04/28/21 19:59 EKG Documentation Completion [RC] AM UA W/FRANTZ RFLX IF INDICATED [URIN] Stat Sodium Chloride 0.9% [Saline Flush] 10 ml FLUSH ASDIRECTED PRN Sodium Chloride 0.9% [Saline Flush] 2.5 ml FLUSH ASDIRECTED PRN Saline Lock Insert [OM.PC] Stat 04/28/21 20:26 Transfuse Red Blood Cells [COMM] Stat 04/28/21 20:27 Verify Patient Consent Obtain [RC] ASDIRECTED 04/28/21 20:36 RED BLOOD CELLS LP [BBK] Stat TYPE AND SCREEN [BBK] Stat 04/28/21 21:14 CORONAVIRUS COVID-19 BK [MOLEC] Stat - Assessment/Plan Last 24 Hours: My Active Orders 04/28/21 19:59 EKG Documentation Completion [RC] AM UA W/FRANTZ RFLX IF INDICATED [URIN] Stat Sodium Chloride 0.9% [Saline Flush] 10 ml FLUSH ASDIRECTED PRN Sodium Chloride 0.9% [Saline Flush] 2.5 ml FLUSH ASDIRECTED PRN Saline Lock Insert [OM.PC] Stat 04/28/21 20:26 Transfuse Red Blood Cells [COMM] Stat 04/28/21 20:27 Verify Patient Consent Obtain [RC] ASDIRECTED 04/28/21 20:36 RED BLOOD CELLS LP [BBK] Stat TYPE AND SCREEN [BBK] Stat 04/28/21 21:14 CORONAVIRUS COVID-19 BK [MOLEC] Stat
[2021-04-28] MEDS ORDERED: cefTRIAXone 1 GM in Premix Bag 1 BAG IV ONE (23:16)
[2021-04-28 23:43] VITALS: BP 103/60; PULSE 80
== END 2021-04-29 00:47 ==
LOC: MW.ED 19:50
DX: I95.9 Hypotension, unspecified (principal); E10.65 Type 1 diabetes mellitus with hyperglycemia; E10.22 Type 1 diabetes mellitus with diabetic chronic kidney disease; E10.10 Type 1 diabetes mellitus with ketoacidosis without coma; I12.0 Hypertensive chronic kidney disease with stage 5 chronic kidney disease or end stage renal disease; N18.6 End stage renal disease; D63.1 Anemia in chronic kidney disease; K21.9 Gastro-esophageal reflux disease without esophagitis; E78.00 Pure hypercholesterolemia, unspecified; Z88.0 Allergy status to penicillin; Z88.1 Allergy status to other antibiotic agents; Z91.013 Allergy to seafood; Z91.018 Allergy to other foods; Z88.5 Allergy status to narcotic agent; Z88.8 Allergy status to other drugs, medicaments and biological substances
CPT/HCPCS: 36415; 36430; 71045; 80053; 82947; 83735; 84484; 85025; 86850; 86900; 86901; 86920; 86921; 86922; 93005; 96365; 99285; J0696; J7030; P9016; U0002; 99291

== ENCOUNTER 2021-06-15 10:39 | Emergency (ER) | payer MEDICARE, MEDICAID ==
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
[2021-06-15 10:52] VITALS: BP 239/132; PULSE 102
[2021-06-15] MEDS ORDERED: Sodium Chloride 0.9% 10 ML Syringe FLUSH PRN (10:57)
[2021-06-15] MEDS ORDERED: Sodium Chloride 0.9% 2.5 ML Syringe FLUSH PRN (10:57)
[2021-06-15] MEDS ORDERED: HYDROmorphone 1 MG/ML Syringe IM ONE (10:59)
[2021-06-15] MEDS ORDERED: Haloperidol Lactate 5 MG/ML SDV IM ONE (10:59)
[2021-06-15] MEDS ORDERED: Ondansetron 4 MG/2 ML SDV IM ONE (11:35)
[2021-06-15 12:15] LABS: BLOOD UREA NITROGEN,BUN 106 mg/dL (7.0-18.0); CARBON DIOXIDE,CO2 21.3 mmol/L (21.0-32.0); CHLORIDE,CL 103 mmol/L (98-107); GLUCOSE RANDOM 399 mg/dL (74-106); LIPASE 59 U/L (73-393); POTASSIUM,K 4.8 mmol/L (3.5-5.1); SODIUM,NA 139 mmol/L (136-148)
== END 2021-06-15 14:30 | disposition home or self-care (01) ==
LOC: MW.ED 10:39
DX: R11.2 Nausea with vomiting, unspecified (principal); E78.00 Pure hypercholesterolemia, unspecified; I10 Essential (primary) hypertension; K21.9 Gastro-esophageal reflux disease without esophagitis; E10.40 Type 1 diabetes mellitus with diabetic neuropathy, unspecified; E10.10 Type 1 diabetes mellitus with ketoacidosis without coma; Z88.0 Allergy status to penicillin; Z91.013 Allergy to seafood; Z91.018 Allergy to other foods; Z88.8 Allergy status to other drugs, medicaments and biological substances; Z88.5 Allergy status to narcotic agent
CPT/HCPCS: 36415; 80053; 80307; 83605; 83690; 83735; 84484; 85025; 93005; 96372; 99284; J1170; J2405; U0002; 93010

== ENCOUNTER 2021-06-15 16:34 | Emergency (ER) | payer MEDICARE, MEDICAID ==
[2021-06-15] MEDS ORDERED: HYDROmorphone 1 MG/ML Syringe IM ONE (16:36)
[2021-06-15] MEDS ORDERED: Metoclopramide 10 MG/2 ML SDV IM ONE (16:37)
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
[2021-06-15 17:24] VITALS: BP 231/106; PULSE 98
== END 2021-06-15 17:25 | disposition home or self-care (01) ==
LOC: MW.ED 16:34
DX: R11.2 Nausea with vomiting, unspecified (principal); E78.00 Pure hypercholesterolemia, unspecified; I10 Essential (primary) hypertension; K21.9 Gastro-esophageal reflux disease without esophagitis; E10.40 Type 1 diabetes mellitus with diabetic neuropathy, unspecified; Z88.0 Allergy status to penicillin; Z91.013 Allergy to seafood; Z91.018 Allergy to other foods; Z88.5 Allergy status to narcotic agent; Z88.8 Allergy status to other drugs, medicaments and biological substances; Z79.899 Other long term (current) drug therapy
CPT/HCPCS: 96372; 99284; J1170; J2765

== ENCOUNTER 2021-06-15 21:28 | Emergency (ER) | payer MEDICARE, MEDICAID ==
[2021-06-15 21:40] VITALS: BP 239/133; PULSE 107
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
[2021-06-15] MEDS ORDERED: Metoclopramide 10 MG/2 ML SDV IM ONE (22:16)
[2021-06-15] MEDS ORDERED: diphenhydrAMINE 50 MG Cap PO ONE (22:17)
[2021-06-15] MEDS ORDERED: Ondansetron 4 MG Tab.DIS PO ONE (22:17)
[2021-06-15] MEDS ORDERED: Pantoprazole 40 MG Tab.CR PO STA (22:19)
[2021-06-15] MEDS ORDERED: Promethazine 25 MG Tab PO STA (22:35)
== END 2021-06-15 22:06 | disposition home or self-care (01) ==
LOC: MW.ED 21:28
DX: Z02.89 Encounter for other administrative examinations (principal); E78.00 Pure hypercholesterolemia, unspecified; I10 Essential (primary) hypertension; K21.9 Gastro-esophageal reflux disease without esophagitis; E10.40 Type 1 diabetes mellitus with diabetic neuropathy, unspecified; Z86.16 Personal history of COVID-19; Z88.0 Allergy status to penicillin; Z91.018 Allergy to other foods; Z88.5 Allergy status to narcotic agent; Z79.4 Long term (current) use of insulin; Z79.899 Other long term (current) drug therapy
CPT/HCPCS: 96372; 99284; A9270; J2765

== ENCOUNTER 2021-06-16 05:22 | Emergency (ER) | payer MEDICARE, MEDICAID ==
[2021-06-16] MEDS ORDERED: Pantoprazole 80 MG in Sodium Chloride 0.9% 20 ML IVPUSH ONE (06:23)
[2021-06-16] MEDS ORDERED: Metoclopramide 10 MG/2 ML SDV IVPUSH ONE (06:23)
[2021-06-16] MEDS ORDERED: HYDROmorphone 1 MG/ML Syringe IVPUSH ONE ×2 (06:23→12:59)
[2021-06-16] MEDS ORDERED: Labetalol 100 MG/20 ML MDV IVPUSH ONE ×2 (06:37→08:51)
[2021-06-16] MEDS ORDERED: NIFEdipine 30 MG Tab.ER PO ONE (06:38)
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
--- NOTE | 2021-06-16 07:10 | CR ---
Indication: Missed dialysis appointment Technique: Chest 1 view Comparison: Chest x-ray 04/28/2021 Findings/Impression: Cardiovascular and mediastinum: Mild cardiomegaly with right internal jugular line with tip at the proximal right atrium. Lungs and pleural space: Lungs are clear. No sign of infiltrate or mass. No sign of pleural effusion. No pneumothorax. Bones and soft tissues: No acute findings. Dictated by Kj Meyer MD @ 06/16/2021 7:09:27 AM (Electronically Signed)
[2021-06-16 08:20] LABS: BLOOD UREA NITROGEN,BUN 130 mg/dL (7.0-18.0); CHLORIDE,CL 96 mmol/L (98-107); POTASSIUM,K 6.1 mmol/L (3.5-5.1); SODIUM,NA 135 mmol/L (136-148)
[2021-06-16 08:21] LABS: GLUCOSE RANDOM 691 mg/dL (74-106)
[2021-06-16] MEDS ORDERED: Insulin Regular, Human 100 Units/ML 10 ML Vial IVPUSH ONE (08:21)
[2021-06-16] MEDS ORDERED: Glucagon,Human Recombinant 1 MG Vial IM PRN (08:21)
[2021-06-16] MEDS ORDERED: Calcium Gluconate 10% 1 GM/10 ML SDV IV STA (08:24)
[2021-06-16] MEDS: Insulin Regular in 0.9 % NACL 100 ML IV SCH ×2 (08:57→15:02)
[2021-06-16] MEDS ORDERED: Sodium Chloride 0.9% 1,000 ML IV ONE (11:14)
[2021-06-16] MEDS ORDERED: LORazepam 2 MG/ML SDV IVPUSH ONE ×2 (12:59)
[2021-06-16] MEDS ORDERED: Dextrose 5%-0.45% NaCl 1,000 ML IV SCH (13:30)
[2021-06-16] MEDS ORDERED: 50% Dextrose in Water 50 ML Syringe IVPUSH ONE (14:59)
--- NOTE | 2021-06-16 15:14 | PCM.PR.CLI ---
Central Line Insertion - Central Line Insertion Site: internal jugular (L) Prep: CDC/MBT Guidelines, Sterile Drapes, Chlorhexidine Lumen: triple Gauge: 7Fr Local Anesthesia - Lidocaine (Xylocaine): 1% Plain Local Anesthetic Volume: 5cc Ultrasound guided: Yes Micropuncture kit used: No CL Complications: No Secured with suture: Yes Post placement confirmation: all ports aspirated, all ports flushed Dressing applied: by provider Central line comment: Central line performed by TANYA Amaro observed and supervised directly by Dr. Emanuel Ruby
[2021-06-16 15:30] LABS: BLOOD UREA NITROGEN,BUN 138 mg/dL (7.0-18.0); CARBON DIOXIDE,CO2 22.1 mmol/L (21.0-32.0); CHLORIDE,CL 104 mmol/L (98-107); GLUCOSE RANDOM 139 mg/dL (74-106); POTASSIUM,K 4.1 mmol/L (3.5-5.1); SODIUM,NA 142 mmol/L (136-148)
[2021-06-16] MEDS: 50% Dextrose in Water 50 ML Syringe IVPUSH PRN ×2 (15:42→16:21)
[2021-06-16 16:18] VITALS: BP 192/103; PULSE 99
== END 2021-06-16 16:30 | disposition home or self-care (01) ==
LOC: MW.ED 05:22
DX: E10.10 Type 1 diabetes mellitus with ketoacidosis without coma (principal); I10 Essential (primary) hypertension; R10.9 Unspecified abdominal pain; R11.10 Vomiting, unspecified; Z99.2 Dependence on renal dialysis; Z20.822 Contact with and (suspected) exposure to COVID-19
CPT/HCPCS: 36415; 36600; 71045; 80048; 82803; 82947; 85025; 93005; 96374; 96375; 96376; 99285; A9270; C9113; J0610; J1170; J1815; J2060; J2765; J3490; J7030; J7042; U0002; 93010